=== PATIENT | female | born 1965 | race Caucasian/White ===

== ENCOUNTER → 2019-06-06 00:01 | Outpatient (RCR) | payer MEDICARE, MEDICAID, SELFPAY | LOC: WOUND 05-26 10:12 | PROVIDERS: Family Provider Internal Medicine; Visit Provider Surgery | DX: I96 Gangrene, not elsewhere classified (principal); L97.529 Non-pressure chronic ulcer of other part of left foot with unspecified severity; M79.605 Pain in left leg | CPT/HCPCS: 93922; G0463 ==

== ENCOUNTER 2019-06-08 09:24 | Outpatient (CLI) | payer MEDICARE, MEDICAID, SELFPAY | END 2019-06-08 09:25 | disposition home or self-care (01) | LOC: LAB 09:34 | PROVIDERS: Family Provider Internal Medicine; PCP Internal Medicine; Visit Provider Internal Medicine Nephrology | DX: N18.6 End stage renal disease (principal) ==

== ENCOUNTER 2019-06-25 15:37 | Inpatient (IN) | payer MEDICARE, MEDICAID, SELFPAY ==
[2019-06-25 15:38] VITALS: BP 121/79; PULSE 70; RESP 17; TEMP 36.7; O2SAT 100; BMI 34.9
--- NOTE | 2019-06-25 15:51 | ED_ITS ---
Entered by Monik El, acting as scribe for Tino Greenfield DO Jun 25, 2019 15:37 HPI - Nausea/Vomiting/Diarrhea General: Chief complaint: Nausea/Vomiting/Diarrhea Stated complaint: N/V Time Seen by Provider: 06/25/19 15:48 Source: patient Mode of arrival: wheelchair Limitations: no limitations History of Present Illness: HPI Narrative: 54 yo Female presents to ED with nausea and vomiting for 2 weeks. Pt states that she was on doxycycline and is now on Bactrim. Pt states that she is nauseated any time she smells or eats food. Pt states she has been vomiting but had no fever. Pt does peritoneal dialysis every night. MD elicited complaint: nausea and vomiting Onset (ago): week(s) (2) Description of vomiting: food contents Associated nausea: Yes Associated abdominal pain: No Location of pain: None Pain consistency: constant Exacerbating factors: eating Relieving factors: none Associated symtoms: Reports cough and nausea; Denies change in vision, chest pain, dysuria, fevers/chills, headache(s) or palpitations Review of Systems General: Reports: 10 or more systems reviewed and unremarkable except in HPI and below Const: Denies: fever, chills or body aches Eyes: Denies: change in vision, blurry vision or blind spots ENMT: Denies: throat pain, enlarged tonsils, painful swallowing, hoarseness or mouth pain Card: Denies: chest pain, palpitations, irregular heart rhythm or edema Resp: Reports: non-productive cough; Denies: shortness of breath or productive cough GI: Reports: nausea and vomiting; Denies: abdominal pain or diarrhea : Denies: flank pain, difficulty urinating, painful urination, urinary frequency or urinary urgency Musc: Denies: neck pain, back pain, extremity pain, extremity swelling or joint pain Skin/Breast: Denies: rash, itching or redness Neuro: Denies: headache, numbness in extremities or weakness in extremities Endo: Denies: excessive urination, excessive thirst or tired all the time Refugio/Lymph: Denies: easy bruising or easy bleeding PFSH ED PFSH: Statuses (acute, chronic, etc) shown below reflect problem list status as previously entered and may not be historically accurate Medical History Cholecystitis (Acute) Diabetes (Acute) Gastroparesis (Acute) History of left heart catheterization (Acute) HTN (hypertension) (Acute) Hyperlipidemia (Acute) Myocardial infarction (Acute) Peritoneal dialysis catheter in place (Acute) Renal failure (Acute) TIA (transient ischemic attack) (Acute) Surgical History History of appendectomy (Acute) History of heart artery stent (Acute) History of hysterectomy (Acute) Social History Smoking and tobacco status: never smoked Physical Exam Const: COMMON NORMALS: no apparent distress, average body habitus, oriented x3, no limitations, healthy appearing, alert and well nourished HENMT: COMMON NORMALS: normocephalic, head/scalp atraumatic, hearing grossly normal bilaterally, external ears normal, EAC's normal, TM's normal bilaterally, external nose normal, nasal mucous membranes and turbinates normal, moist oral mucous membranes, oropharynx normal, dentition normal and gingiva normal HEAD & SCALP: normocephalic and atraumatic NOSE: external nose normal and nasal mucous membranes and turbinates normal EXTERNAL EAR: Yes external ears normal EXTERNAL AUDITORY CANAL: EAC's normal TYMPANIC MEMBRANE: TM's normal bilaterally Eye: COMMON NORMALS: PERRL, EOMs intact bilaterally, conjunctivae normal, no scleral icterus, no papilledema, normal visual desir by confrontation and fundi normal bilaterally CONJUNCTIVA: Yes conjunctivae normal PUPIL: Yes PERRL DIRECT OPHTHALMOSCOPY: Yes no papilledema and Yes fundi normal bilaterally Neck/C-Spine: COMMON NORMALS: full ROM, no lymphadenopathy, supple, no meningeal signs, no JVD, thyroid normal and no carotid bruits THYROID: thyroid normal Chest: COMMONS NORMALS: inspection of chest normal and palpation of chest normal Resp: COMMON NORMALS: normal respiratory effort, no retractions, no use of accessory muscles, clear to auscultation bilaterally and percussion normal AUSCULTATION: clear to auscultation bilaterally PERCUSSION: percussion normal Cardio: COMMON NORMALS: no JVD, regular rate, regular rhythm, S1 normal heart sound, S2 normal heart sound, no gallops, no clicks, no murmurs, no rub and peripheral pulses 2+ throughout RATE: regular rate RHYTHM: regular rhythm HEART SOUNDS: S1 normal and S2 normal PERIPHERAL PULSES: pulses 2+ throughout GI: COMMON NORMALS: normal to inspection, nondistended, normoactive bowel sounds, soft to palpation, non-tender, no hepatosplenomegaly, no masses and no bruits PALPATION: Yes soft and Yes no hepatosplenomegaly : COMMON NORMALS: Yes no CVA tenderness and Yes external appearance normal BLADDER/KIDNEY EXAM: Yes no CVA tenderness Back/Pelvis: COMMON NORMALS: no CVA tenderness, thoracic and lumbar spine normal to inspection, no thoracic nor lumbar tenderness, thoraco-lumbar ROM normal and straight leg raise negative bilaterally Extremity: COMMON NORMALS: normal to inspection, full ROM, normal capillary refill, no joint enlargement, no clubbing, cyanosis or edema, no calf tenderness and no pedal edema RIGHT LOWER EXTREMITY: Yes knee joint (BKA) Neuro: COMMON NORMALS: oriented x3 SENSORIUM/ORIENTATION: Yes alert MENINGEAL SIGNS: Yes no meningeal signs Skin: COMMON NORMALS: no rashes or lesions noted, no wounds, skin turgor normal, no jaundice, no petechiae and no mottling GENERAL SKIN EXAM: no rash es or lesions noted and turgor normal Course Vital Signs: Vital signs: Vital Signs Temperature 98.1 F 06/25/19 15:38 Pulse Rate 70 06/25/19 15:38 Respiratory Rate 17 06/25/19 15:38 Blood Pressure 121/79 06/25/19 15:38 Pulse Oximetry 100 06/25/19 15:38 MDM - Nausea/Vomiting/Diarrhea Lab Data: Labs: Lab Results 06/25/19 06/25/19 06/25/19 Range/Units 16:10 16:10 16:10 WBC 8.4 (4.0-10.0) 10^3/ uL RBC 3.13 L (4.1-5.3) 10^6/u L Hgb 10.1 L (11.5-15.3) g/dL Hct 29.4 L (37.0-47.0) % MCV 93.9 (81-99) fL MCH 32.3 (28.0-34.0) pg MCHC 34.4 (30.0-36.0) g/dL RDW 13.2 (12.1-15.1) % Plt Count 254 (130-400) 10^3/c mm MPV 11.3 H (7.4-10.4) fL Neut % (Auto) 73.2 % Lymph % (Auto) 19.3 % [place] % (Auto) 5.7 % Eos % (Auto) 1.0 % Baso % (Auto) 0.4 % Neut # (Auto) 6.1 (1.8-7.7) 10^3/u L Lymph # (Auto) 1.6 (0.8-4.8) 10^3/u L Carolina # (Auto) 0.5 (0.2-0.9) 10^3/u L Eos # (Auto) 0.1 (0.0-0.8) 10^3/u L Baso # (Auto) 0.0 (0.0-0.1) 10^3/u L Nucleated RBC % (a uto) 0 % Nucleated RBCs # 0.0 /100WBC Specimen Type Sample Site ABG pH (7.35-7.45) ABG pCO2 (35-45) mmHg ABG pO2 (80.0-100.0) mmH g ABG HCO3 (22-26) mmol/L ABG Base Excess (-2.0-2.0) mmol/ L Jason Test Hematocrit (37-47) % O2 Delivery Device FiO2 % International Marketing Manager ID Sodium 130 L (136-145) mmol/L Potassium 4.0 (3.5-5.1) mmol/L Chloride 84 L (98-107) mmol/L Carbon Dioxide 29 (22-29) mmol/L Anion Gap 21.0 H (5-19) BUN 39 H (6-20) mg/dL Creatinine 8.4 H* (0.5-0.9) mg/dL GFR Calculation 4.9 L (90-130) mL/min Glucose 230 H (74-109) mg/dL Lactate 2.5 H (0.5-2.2) mmol/L Calcium 10.7 H (8.6-10.0) mg/Dl Total Bilirubin 0.3 (0.15-1.2) mg/dL AST 15 (0-32) U/L ALT 14 (0-33) U/L Alkaline Phosphata se 117 H (35-105) IU/L Troponin T Baselin e (0-10) ng/mL Troponin T 120 Min [place] (0-10) ng/mL Delta Troponin T (0-10) ABS# Total Protein 8.0 (6.6-8.7) g/dL Albumin 3.6 (3.5-5.2) g/dL Globulin 4.4 (1.3-4.6) g/dL Lipase 32 (13-60) U/L Serum Ketones (Negative) 06/25/19 06/25/19 06/25/19 Range/Units 16:10 16:10 16:55 WBC (4.0-10.0) 10^3/ uL RBC (4.1-5.3) 10^6/u L Hgb (11.5-15.3) g/dL Hct (37.0-47.0) % MCV (81-99) fL MCH (28.0-34.0) pg MCHC (30.0-36.0) g/dL RDW (12.1-15.1) % Plt Count (130-400) 10^3/c mm MPV (7.4-10.4) fL Neut % (Auto) % Lymph % (Auto) % Carolina % (Auto) % Eos % (Auto) % Baso % (Auto) % Neut # (Auto) (1.8-7.7) 10^3/u L Lymph # (Auto) (0.8-4.8) 10^3/u L Carolina # (Auto) (0.2-0.9) 10^3/u L Eos # (Auto) (0.0-0.8) 10^3/u L Baso # (Auto) (0.0-0.1) 10^3/u L Nucleated RBC % (a uto) % Nucleated RBCs # /100WBC Specimen Type Arterial Sample Site Radial, right ABG pH 7.47 H (7.35-7.45) ABG pCO2 43.3 (35-45) mmHg ABG pO2 62.9 L (80.0-100.0) mmH g ABG HCO3 31.5 H (22-26) mmol/L ABG Base Excess 6.9 H (-2.0-2.0) mmol/ L Jason Test Pos Hematocrit 48.2 H (37-47) % O2 Delivery Device Room air FiO2 21.0 % International Marketing Manager ID glc Sodium (136-145) mmol/L Potassium (3.5-5.1) mmol/L Chloride (98-107) mmol/L Carbon Dioxide (22-29) mmol/L Anion Gap (5-19) BUN (6-20) mg/dL Creatinine (0.5-0.9) mg/dL GFR Calculation (90-130) mL/min Glucose (74-109) mg/dL Lactate (0.5-2.2) mmol/L Calcium (8.6-10.0) mg/Dl Total Bilirubin (0.15-1.2) mg/dL AST (0-32) U/L ALT (0-33) U/L Alkaline Phosphata se (35-105) IU/L Troponin T Baselin e 170 H* (0-10) ng/mL Troponin T 120 Min [place] (0-10) ng/mL Delta Troponin T (0-10) ABS# Total Protein (6.6-8.7) g/dL Albumin (3.5-5.2) g/dL Globulin (1.3-4.6) g/dL Lipase (13-60) U/L Serum Ketones Negative (Negative) 06/25/19 Range/Units 18:00 WBC (4.0-10.0) 10^3/ uL RBC (4.1-5.3) 10^6/u L Hgb (11.5-15.3) g/dL Hct (37.0-47.0) % MCV (81-99) fL MCH (28.0-34.0) pg MCHC (30.0-36.0) g/dL RDW (12.1-15.1) % Plt Count (130-400) 10^3/c mm MPV (7.4-10.4) fL Neut % (Auto) % Lymph % (Auto) % [place] % (Auto) % Eos % (Auto) % Baso % (Auto) % Neut # (Auto) (1.8-7.7) 10^3/u L Lymph # (Auto) (0.8-4.8) 10^3/u L [place] # (Auto) (0.2-0.9) 10^3/u L Eos # (Auto) (0.0-0.8) 10^3/u L Baso # (Auto) (0.0-0.1) 10^3/u L Nucleated RBC % (a uto) % Nucleated RBCs # /100WBC Specimen Type Sample Site ABG pH (7.35-7.45) ABG pCO2 (35-45) mmHg ABG pO2 (80.0-100.0) mmH g ABG HCO3 (22-26) mmol/L ABG Base Excess (-2.0-2.0) mmol/ L Jason Test Hematocrit (37-47) % O2 Delivery Device FiO2 % International Marketing Manager ID Sodium (136-145) mmol/L Potassium (3.5-5.1) mmol/L Chloride (98-107) mmol/L Carbon Dioxide (22-29) mmol/L Anion Gap (5-19) BUN (6-20) mg/dL Creatinine (0.5-0.9) mg/dL GFR Calculation (90-130) mL/min Glucose (74-109) mg/dL Lactate (0.5-2.2) mmol/L Calcium (8.6-10.0) mg/Dl Total Bilirubin (0.15-1.2) mg/dL AST (0-32) U/L ALT (0-33) U/L Alkaline Phosphata se (35-105) IU/L Troponin T Baselin e (0-10) ng/mL Troponin T 120 Min [place] 181.10 H (0-10) ng/mL Delta Troponin T 11.10 H* (0-10) ABS# Total Protein (6.6-8.7) g/dL Albumin (3.5-5.2) g/dL Globulin (1.3-4.6) g/dL Lipase (13-60) U/L Serum Ketones (Negative) Imaging Data^: CT Abd/Pel: Radiologist's impression: [address] [address] [address] Scan Report Signed Patient: Rizwana Herzog #: [id number] : 1965Acct#:[id number] Age/Sex: 54 / FADM Date: 06/25/19 Loc: ERRoom/Bed: Attending Dr: Ordering Provider/Ordering MD: Tino Greenfield DO Date of Service: 06/25/19 Procedure(s): CT abdomen pelvis wo con [id number] Accession Number(s): [id number] Report Number: [id number] PROCEDURE INFORMATION: Exam: CT Abdomen And Pelvis Without Contrast Exam date and time: 06/25/2019 4:01 PM Age: 54 years old Clinical indication: Abdominal pain; Acute; Prior surgery; Surgery date: 6+ months; Additional info: N/v; Abd pain TECHNIQUE: Imaging protocol: Computed tomography of the abdomen and pelvis without contrast. Total DLP: 1765.68 mGy-cm Radiation optimization: All CT scans at this facility use at least one of these dose optimization techniques: automated exposure control; mA and/or kV adjustment per patient size (includes targeted exams where dose is matched to clinical indication); or iterative reconstruction. COMPARISON: CT abdomen pelvis wo con [id number] 04/21/2018 4:28 PM FINDINGS: Tubes, catheters and devices: Right lower quadrant peritoneal dialysis catheter in place. Liver: Normal. No mass. Gallbladder and bile ducts: Prior cholecystectomy. Pancreas: Normal. No ductal dilation. Spleen: Normal. No splenomegaly. Adrenals: Normal. No mass. Kidneys and ureters: Normal. No hydronephrosis. Stomach and bowel: Unremarkable. No obstruction. No mucosal thickening. Appendix: No evidence of appendicitis. Intraperitoneal space: Moderate amount ascites or dialysis fluid in the abdomen and pelvis. Vasculature: Unremarkable. No abdominal aortic aneurysm. Lymph nodes: Unremarkable. No enlarged lymph nodes. Bladder: Small amount of air in collapsed urinary bladder which is probably iatrogenic from recent instrumentation and clinical correlation is requested. Reproductive: Prior hysterectomy. Bones/joints: Unremarkable. No acute fracture. Soft tissues: Enlarging fat and fluid containing umbilical hernia now measuring [address]/CT abdomen pelvis con [id number] IMPRESSION: 1) right lower quadrant peritoneal dialysis catheter in place. Moderate amount of ascites or dialysis fluid in the abdomen and pelvis. 2) enlarging 4 cm fat and fluid containing umbilical hernia. 3) prior cholecystectomy and hysterectomy. Radiation Dose CTDIVOL = (mGy): DLP = 1765.68 (mGy-cm) Dictated By:Zack Leary MD Signed By:Zack Leary MDSigned Date/Time:06/25/191650 DD/ 49 CXR: Radiologist's impression: [facility] [address] [facility] [address] XRay Report Signed Patient: Rizwana Herzog #: [id number] : 1965Acct#:[id number] Age/Sex: 54 / FADM Date: 06/25/19 Loc: ERRoom/Bed: Attending Dr: Ordering Provider/Ordering MD: Tino Greenfield DO Date of Service: 06/25/19 Procedure(s): XR chest 1V portable [id number] Accession Number(s): [id number] Report Number: [id number] PROCEDURE INFORMATION: Exam: XR Chest, 1 View Exam date and time: 06/25/2019 4:01 PM Age: 54 years old Clinical indication: Other: N/v/d; Prior surgery; Surgery date: 6+ months; Surgery type: Stent x 1; Additional info: Dyspnea TECHNIQUE: Imaging protocol: XR of the chest Views: 1 view. COMPARISON: CR Chest 1 view [id number] 11/10/2018 9:56 AM FINDINGS: Lungs: Right mid lung region plate of atelectasis. Pleural space: Unremarkable. No pleural effusion. No pneumothorax. Heart/Mediastinum: Mild cardiomegaly. Bones/joints: Unremarkable. XR/XR chest 1V portable [id number] IMPRESSION: Minor right lung platelike atelectasis. Mild cardiomegaly. Dictated By:Zack Leary MD Signed By:Zack Leary MDSigned Date/Time:06/25/191652 DD/ 51 Discharge Plan Discharge Patient Disposition: Admitted As Inpatient Clinical Impression: Peritoneal dialysis catheter in place, Non-ST elevation CT (NSTEMI) Nausea & vomiting Qualifiers: Vomiting type: unspecified Vomiting Intractability: intractable Qualified Code(s): R11.2 - Nausea with vomiting, unspecified Chronic renal failure Qualifiers: Chronic kidney disease stage: unspecified stage Qualified Code(s): N18.9 - Chronic kidney disease, unspecified Condition: Stable Referrals: Yovany Leonardo MD [Primary Care Provider] - Coding Level of Care Code ED Director Of Channel Marketing for Chg Fwd Exam Problem Focused The documentation recorded by the Nikko bernal Carmen, accurately reflects the service I personally performed and the decisions made by me, Tino Greenfield, DO Jun 25, 2019 15:37
--- NOTE | 2019-06-25 15:58 | CTR_ITS ---
PROCEDURE INFORMATION: Exam: CT Abdomen And Pelvis Without Contrast Exam date and time: 06/25/2019 4:01 PM Age: 54 years old Clinical indication: Abdominal pain; Acute; Prior surgery; Surgery date: 6+ months; Additional info: N/v; Abd pain TECHNIQUE: Imaging protocol: Computed tomography of the abdomen and pelvis without contrast. Total DLP: 1765.68 mGy-cm Radiation optimization: All CT scans at this facility use at least one of these dose optimization techniques: automated exposure control; mA and/or kV adjustment per patient size (includes targeted exams where dose is matched to clinical indication); or iterative reconstruction. COMPARISON: CT abdomen pelvis con [id number] 04/21/2018 4:28 PM FINDINGS: Tubes, catheters and devices: Right lower quadrant peritoneal dialysis catheter in place. Liver: Normal. No mass. Gallbladder and bile ducts: Prior cholecystectomy. Pancreas: Normal. No ductal dilation. Spleen: Normal. No splenomegaly. Adrenals: Normal. No mass. Kidneys and ureters: Normal. No hydronephrosis. Stomach and bowel: Unremarkable. No obstruction. No mucosal thickening. Appendix: No evidence of appendicitis. Intraperitoneal space: Moderate amount ascites or dialysis fluid in the abdomen and pelvis. Vasculature: Unremarkable. No abdominal aortic aneurysm. Lymph nodes: Unremarkable. No enlarged lymph nodes. Bladder: Small amount of air in collapsed urinary bladder which is probably iatrogenic from recent instrumentation and clinical correlation is requested. Reproductive: Prior hysterectomy. Bones/joints: Unremarkable. No acute fracture. Soft tissues: Enlarging fat and fluid containing umbilical hernia now measuring [address]/CT abdomen pelvis con [id number] IMPRESSION: 1) right lower quadrant peritoneal dialysis catheter in place. Moderate amount of ascites or dialysis fluid in the abdomen and pelvis. 2) enlarging 4 cm fat and fluid containing umbilical hernia. 3) prior cholecystectomy and hysterectomy. Radiation Dose CTDIVOL = (mGy): DLP = 1765.68 (mGy-cm)
--- NOTE | 2019-06-25 15:58 | XRR_ITS ---
PROCEDURE INFORMATION: Exam: XR Chest, 1 View Exam date and time: 06/25/2019 4:01 PM Age: 54 years old Clinical indication: Other: N/v/d; Prior surgery; Surgery date: 6+ months; Surgery type: Stent x 1; Additional info: Dyspnea TECHNIQUE: Imaging protocol: XR of the chest Views: 1 view. COMPARISON: CR Chest 1 view [id number] 11/10/2018 9:56 AM FINDINGS: Lungs: Right mid lung region plate of atelectasis. Pleural space: Unremarkable. No pleural effusion. No pneumothorax. Heart/Mediastinum: Mild cardiomegaly. Bones/joints: Unremarkable. XR/XR chest 1V portable [id number] IMPRESSION: Minor right lung platelike atelectasis. Mild cardiomegaly.
--- NOTE | 2019-06-25 16:00 | ECG_ITS ---
Measurements Intervals [place] Rate: 67 P: -85 MI: 128 QRS: -36 QRSD: 80 T: -11 QT: 367 QTc: 388 JUNCTIONAL RHYTHM POSSIBLE ANTERIOR MYOCARDIAL INFARCTION , OF INDETERMINATE AGE [30 ms Q WAVE IN V3/V4, OR R < 0.2 mV IN V4] INFERIOR MYOCARDIAL INFARCTION , OF INDETERMINATE AGE [40+ ms Q WAVE AND/OR ST/T ABNORMALITY IN II/aVF] Compared to ECG 11/07/2018 20:12:47 Junctional rhythm now present Sinus rhythm no longer present Left-axis deviation no longer present Myocardial infarct finding still present Electronically Signed On 06-26-2019 17:18:59 HAY FARMER by Manny Tan M.D. [email or web address]
[2019-06-25 16:26] LABS: Basophils % 0.4 %; Eosinophils # 0.1 10^3/uL (0.0-0.8); Hematocrit 29.4 % (37.0-47.0); Hemoglobin 10.1 g/dL (11.5-15.3); Lymphocytes # 1.6 10^3/uL (0.8-4.8); Lymphocytes % 19.3 %; Mean Corpuscular HGB Conc 34.4 g/dL (30.0-36.0); Mean Corpuscular Hemoglobin 32.3 pg (28.0-34.0); Mean Corpuscular Volume 93.9 fL (81-99); Mean Platelet Volume 11.3 fL (7.4-10.4); Monocytes # 0.5 10^3/uL (0.2-0.9); Monocytes % 5.7 %; Neutrophils # 6.1 10^3/uL (1.8-7.7); Neutrophils % 73.2 %; Nucleated Red Blood Cells % 0 %; Platelet Count 254 10^3/cmm (130-400); Red Blood Count 3.13 10^6/uL (4.1-5.3); Red Cell Distribution Width 13.2 % (12.1-15.1); White Blood Count 8.4 10^3/uL (4.0-10.0)
[2019-06-25 16:36] LABS: Ketone (Acetest) Serum Negative (Negative); Lactate (Lactic Acid level) 2.5 mmol/L (0.5-2.2)
[2019-06-25] MEDS: ondansetron 2 mg/ML SDV 2 mL 4 MG IVP ×2 (16:45→23:20)
[2019-06-25 16:51] LABS: Troponin(5th) Baseline 170 ng/mL (0-10)
[2019-06-25 16:58] LABS: Alanine Aminotransferase 14 U/L (0-33); Albumin Level 3.6 g/dL (3.5-5.2); Alkaline Phosphatase 117 IU/L (35-105); Aspartate Amino Transferase 15 U/L (0-32); Blood Urea Nitrogen 39 mg/dL (6-20); Calcium 10.7 mg/Dl (8.6-10.0); Carbon Dioxide 29 mmol/L (22-29); Chloride 84 mmol/L (98-107); Globulin 4.4 g/dL (1.3-4.6); Glomerular Filtration Rate 4.9 mL/min (90-130); Glucose 230 mg/dL (74-109); Lipase 32 U/L (13-60); Sodium 130 mmol/L (136-145); Total Bilirubin 0.3 mg/dL (0.15-1.2)
[2019-06-25] MEDS: sodium chloride 0.9% 1,000 ML 999 ML IV (16:58)
[2019-06-25 17:05] LABS: ABG PCO2 43.3 mmHg (35-45); ABG PH Result 7.47 (7.35-7.45); Arterial Blood Gas Hematocrit 48.2 % (37-47); Base Excess ABG 6.9 mmol/L (-2.0-2.0); Blood Gas Allen Test Pos; Blood Gas Operator Identificat glc; Blood Gas Sample Site Radial, right; Blood Gas Sample Type Arterial; HCO3 ABG 31.5 mmol/L (22-26); Oxygen Device ROOM AIR; PO2 ABG 62.9 mmHg (80.0-100.0)
--- NOTE | 2019-06-25 18:00 | ECG_ITS ---
Measurements Intervals [place] Rate: 70 P: -46 KS: 181 QRS: -43 QRSD: 81 T: -46 QT: 365 QTc: 396 SINUS RHYTHM LEFT AXIS DEVIATION [QRS AXIS < -30] ANTERIOR MYOCARDIAL INFARCTION , OF INDETERMINATE AGE [40+ ms Q WAVE AND/OR ST/T ABNORMALITY IN V3/V4] INFERIOR MYOCARDIAL INFARCTION , OF INDETERMINATE AGE [40+ ms Q WAVE AND/OR ST/T ABNORMALITY IN II/aVF] Compared to ECG 11/07/2018 20:12:47 No significant changes Electronically Signed On 06-26-2019 17:26:36 SHOVEL LOGGER by Manny Tan M.D. [email or web address]
--- NOTE | 2019-06-25 18:30 | PC.NURSE ---
2 hr Trop = 181.1, delta = 11.1
--- NOTE | 2019-06-25 20:30 | P.HP_ITS ---
Providers/Chief Complaint Admitting Physician: Tierra Jung MD Primary Care Provider: Yovany Leonardo MD Chief Complaint: N/V History of Present Illness Rizwana Herzog is a 54 year old female with PMHx of ESRD on PD, CAD, HTN, IDDM type II, Hypothyroidism, GERD, Hyperlipidemia, PVD s/p R BKA; presents with c/o nausea, NBNB emesis x 2 weeks and vague periumbilical abdominal discomfort that seems to have worsened over the past day or so. She has chronic issues with nausea and vomiting since starting PD but states this particular episode seemed to worsen more than usual. She is known to me from previous admission in 2019 during which time she was found to have RLE limb ischemia and was transferred to [place] where she follows up with vascular surgery. She is currently wearing a CAM boot on her LLE due to what sounds like venous stasis ulcers, and has been wearing this for about 3 weeks. Plan is for conservative management and then peripheral angiogram to further assess the vasculature. She denies any fever/chills, pain or drainage from site of PD catheter, chest pain, increased SOB. She has had decreased oral intake due to her abdominal symptoms but no notable weight loss. Workup in ED indicates normal WBC, mild anemia with Hg of 10.1, sodium of 130, BUN of 39, Cr-8.4, lactate of 2.5, delta of 11 from first 2 gen 5 troponins. Vital signs are stable and she is on RA. CXR shows mild cardiomegaly with no acute findings, CT A/P is reported as moderate ascites or dialysis fluid in abdomen and pelvis. Due to troponin elevation and given her underlying history, she is being admitted for further management. She received 1 L NS bolus. Review of Systems Const: Reports: change in appetite (decreased appetite) and fatigue; Denies: fever or chills Eyes: Denies: change in vision ENMT: Reports: dry mouth Card: Denies: chest pain, swelling of feet/ankles or lightheadedness Resp: Denies: shortness of breath GI: Reports: abdominal pain, nausea and vomiting (NBNB); Denies: vomiting blood, diarrhea or blood in stool : Denies: difficulty urinating, painful urination or urinary frequency Musc: Denies: back pain Skin/Breast: Denies: rash Neuro: Denies: numbness in extremities or weakness in extremities Psych: Denies: anxiety Medications/Allergies Home Medications Medication Instructions Recorded Confirmed Last Taken Type aspirin 81 mg PO DAILY 06/25/19 06/25/19 06/24/19 History atorvastatin 40 mg PO DAILY 06/25/19 06/25/19 06/24/19 History bumetanide 1 mg PO BID 06/25/19 06/25/19 06/24/19 History clopidogrel 75 mg PO DAILY 06/25/19 06/25/19 06/24/19 History insulin glargine [Lantus Solostar 30 unit SUBCUT BID 06/25/19 06/25/19 06/24/19 History U-100 Insulin] isosorbide mononitrate 30 mg PO DAILY 06/25/19 06/25/19 06/24/19 History levothyroxine 112 mcg PO DAILY 06/25/19 06/25/19 06/24/19 History metoprolol succinate 50 mg PO DAILY 06/25/19 06/25/19 06/24/19 History pantoprazole 40 mg PO DAILY 06/25/19 06/25/19 06/24/19 History Allergies Allergy/AdvReac Type Severity Reaction Status Date / Time metformin [From Glucophage] Allergy Unknown Verified 06/25/19 15:42 venlafaxine [From Effexor] Allergy ADR-Shakine Verified 06/25/19 15:42 ss PFSH Acute PFSH: Statuses (acute, chronic, etc) shown below reflect problem list status as previously entered and may not be historically accurate Medical History (Updated 06/26/19 @ 01:15 by Tierra Jung MD) Anxiety (Acute) Cholecystitis (Acute) Chronic diastolic CHF (congestive heart failure) (Acute) Depression (Acute) Diabetes (Acute) Insulin-dependent Gastroparesis (Acute) GERD (gastroesophageal reflux disease) (Acute) History of left heart catheterization (Acute) HTN (hypertension) (Acute) Hyperlipidemia (Acute) Hypothyroidism (Acute) Myocardial infarction (Acute) Peripheral vascular disease (Acute) Peritoneal dialysis catheter in place (Acute) Renal failure (Acute) TIA (transient ischemic attack) (Acute) Surgical History (Updated 06/26/19 @ 01:14 by Tierra uJng MD) History of appendectomy (Acute) History of heart artery stent (Acute) History of hysterectomy (Acute) History of right below knee amputation (Acute) Social History (Updated 06/26/19 @ 01:16 by Tierra Jung MD) Smoking and tobacco status: never smoked Alcohol intake: never Substance/Drug Use: never Household members: spouse and family Vitals/I&O/Wt Last Vital Signs Temp 98.1 F 06/25/19 15:38 Pulse 70 06/25/19 15:38 Resp 17 06/25/19 15:38 BP 121/79 06/25/19 15:38 Pulse Ox 100 06/25/19 15:38 Weight last 48 hrs Weight 95.254 kg Physical Exam Const: COMMON NORMALS: no apparent distress and oriented x3 GENERAL APPEARANCE: cooperative and comfortable NUTRITIONAL APPEARANCE: obese morbidly obese ORIENTATION/CONSCIOUSNESS: Yes awake HENMT: COMMON NORMALS: normocephalic, head/scalp atraumatic, hearing grossly normal bilaterally and moist oral mucous membranes HEAD & SCALP: normocephalic and atraumatic Eye: COMMON NORMALS: PERRL, EOMs intact bilaterally and conjunctivae normal CONJUNCTIVA: Yes conjunctivae normal PUPIL: Yes PERRL Neck/C-Spine: COMMON NORMALS: full ROM GENERAL: Yes normal visual inspection and Yes trachea midline Resp: COMMON NORMALS: normal respiratory effort, no retractions, no use of accessory muscles and clear to auscultation bilaterally EFFORT & INSPECTION: Yes able to speak in complete sentences, Yes symmetric chest movement and No tachypneic AUSCULTATION: clear to auscultation bilaterally Cardio: COMMON NORMALS: regular rate, regular rhythm, S1 normal heart sound, S2 normal heart sound and no murmurs RATE: regular rate RHYTHM: regular rhythm HEART SOUNDS: S1 normal and S2 normal GI: COMMON NORMALS: normal to inspection, nondistended, normoactive bowel sounds, soft to palpation and non-tender PALPATION: Yes soft, No tender, No guarding and No rigid OTHER: -PD catheter in place, no noted erythema, no apparent discharge or drainage Extremity: COMMON NORMALS: normal to inspection, full ROM and no clubbing, cyanosis or edema; negative for no pedal edema OTHER: -CAM boot on LLE; s/p R BKA Neuro: COMMON NORMALS: oriented x3, moves all extremities, no focal motor deficits and no sensory deficits noted Psych: COMMON NORMALS: mental status grossly normal, thought process normal, cooperative and speech normal SPEECH: Yes normal speech MOOD & AFFECT: Yes flat affect THOUGHT PROCESS: normal thought process Skin: COMMON NORMALS: no rashes or lesions noted, no jaundice, no petechiae and no mottling GENERAL SKIN EXAM: no rashes or lesions noted Data : 06/25/19 16:10 06/25/19 16:10 Micro: Microbiology 06/25/19 16:49 Blood Culture - Preliminary Blood SPECIMEN COLLECTED 06/25/19 16:10 Blood Culture - Preliminary Blood SPECIMEN COLLECTED A&P Assessment and plan (1) Nausea & vomiting: -has had chronic issues with nausea, vomiting for quite some time, could be secondary to gastroparesis, GERD, gastritis. -no evidence of peritonitis clinically or on imaging -pain control, antiemetics as needed Status: Acute Qualifiers: Vomiting Intractability: intractable Vomiting type: unspecified Qualified Code(s): R11.2 - Nausea with vomiting, unspecified Code(s): R11.2 - Nausea with vomiting, unspecified (2) Peripheral vascular disease: Status: Acute Code(s): I73.9 - Peripheral vascular disease, unspecified (3) Non-ST elevation NM (NSTEMI): -noted troponin elevation which has been chronic as well -given sensitivity of gen 5 troponin, could be secondary to abdominal symptoms; no evidence of cardiac symptoms; low suspicion for cardiac etiology -monitor vital signs -telemetry monitoring -Echo (09/2018): EF=61% -has had negative stress testing in 2016 Status: Acute Code(s): I21.4 - Non-ST elevation (NSTEMI) myocardial infarction (4) Peritoneal dialysis catheter in place: -has ESRD on PD -PD today, Nephrology consult placed; case discussed briefly with Dr. Mcfarland Status: Acute Code(s): Z99.2 - Dependence on renal dialysis Additional A&P Information -Morbid obesity: BMI-35 kg/m2 -Depression/Anxiety -HTN -Hyperlipidemia -Hypothyroidism -IDDM type II; Accuchecks, ISS -Peripheral vascular disease s/p R BKA, venous stasis ulcers on LLE (present on admission) -resume home meds -GI ppx with PPI -DVT ppx with heparin -Dispo: home -Code status: FULL code Attestations Medical Necessity Statement*: Rizwana Herzog's hospital stay will be less than 2 midnights for management of nausea/vomiting, elevated troponin requiring further telemetry monitoring, trending of troponins. Time Spent in Patient Care: Greater than 35 minutes (>than 50% of time spent in counselling and/or direct pt care on unit) . Coding Level of Care Code Acute Director [facility]hs for Chg Fwd Diagnoses Nausea & vomiting R11.2 Vomiting Intractability: intractable Vomiting type: unspecified Peripheral vascular disease I73.9 Non-ST elevation NM (NSTEMI) I21.4 Peritoneal dialysis catheter in place Z99.2
[2019-06-25 21:00] VITALS: PULSE 84; O2SAT 97
[2019-06-25 21:27] VITALS: BP 106/62; PULSE 74; RESP 19; O2SAT 94
--- NOTE | 2019-06-25 22:00 | ECG_ITS ---
Measurements Intervals [place] Rate: 69 P: -81 WI: 130 QRS: -34 QRSD: 84 T: -13 QT: 378 QTc: 405 JUNCTIONAL RHYTHM MARKED LEFT AXIS DEVIATION [QRS AXIS < -30] POSSIBLE ANTERIOR MYOCARDIAL INFARCTION [30 ms Q WAVE IN V3/V4, OR R < 0.2 mV IN V4], OF INDETERMINATE AGE INFERIOR MYOCARDIAL INFARCTION [40+ ms Q WAVE AND/OR ST/T ABNORMALITY IN II/aV II/aVF], OF INDETERMINATE AGE Compared to ECG 11/07/2018 20:12:47 Junctional rhythm now present Sinus rhythm no longer present Myocardial infarct finding still present Electronically Signed On 06-26-2019 17:27:23 BIBLICAL STUDIES PROFESSOR by Manny Tan M.D. [email or web address]
[2019-06-25 22:30] VITALS: BP 123/73; PULSE 71; RESP 18; O2SAT 92
[2019-06-25] MEDS: heparin 5,000 unit/mL INJ 1 mL 5000 UNIT SUBCUT (22:36)
[2019-06-25 22:41] LABS: Troponin 5 6HR 161.8 ng/L (0-10)
[2019-06-25 22:42] LABS: Troponin 5 6HR Delta -8.2 ng/L (0-12)
[2019-06-25 22:44] LABS: Glucose Point of Care 153 mg/dL (70-110)
--- NOTE | 2019-06-25 23:32 | PC.NURSE ---
Dr. Mcfarland called regarding patient's PD. Stating he would be putting in orders for PD and received an order for Gram stain and culture of peritoneal fluid. Read back verbal order.
[2019-06-26] VITALS (8 sets, daily range): BP systolic 92–119; BP diastolic 59–76; PULSE 67–77; RESP 14–18; TEMP 36.7–37.1; O2SAT 90–96
--- NOTE | 2019-06-26 00:21 | PC.NURSE ---
Orders from Dr. Mcfarland to do [facility] exchange tonight. Read back verbal order.
[2019-06-26] MEDS: Dianeal low Ca w/2.5% dex 2,000 mL Bag 2000 ML INTRAPERIT (01:07)
--- NOTE | 2019-06-26 04:27 | PC.NURSE ---
PT HAS A STASIS WOUND TO THE LEFT OUTER FOOT. THERE ARE SPOTS ON THE TOES AND ANOTHER SPOT UNDER THE BIG TOE ON THE PAD. THERE IS SOME ESCHAR ON THE TOES. A WET TO DRY WAS PUT ON THE OUTER FOOT AND WRAPPED IN KERLIX.
[2019-06-26 05:10] LABS: Basophils % 0.3 %; Eosinophils # 0.1 10^3/uL (0.0-0.8); Eosinophils % 1.3 %; Hematocrit 27.3 % (37.0-47.0); Hemoglobin 9.1 g/dL (11.5-15.3); Lymphocytes # 1.8 10^3/uL (0.8-4.8); Mean Corpuscular HGB Conc 33.3 g/dL (30.0-36.0); Mean Corpuscular Hemoglobin 32.2 pg (28.0-34.0); Mean Corpuscular Volume 96.5 fL (81-99); Mean Platelet Volume 11.6 fL (7.4-10.4); Monocytes # 0.5 10^3/uL (0.2-0.9); Monocytes % 6.5 %; Neutrophils % 67.6 %; Nucleated Red Blood Cells % 0 %; Platelet Count 237 10^3/cmm (130-400); Red Blood Count 2.83 10^6/uL (4.1-5.3); Red Cell Distribution Width 13.2 % (12.1-15.1); White Blood Count 7.4 10^3/uL (4.0-10.0)
[2019-06-26] MEDS: heparin 5,000 unit/mL INJ 1 mL 5000 UNIT SUBCUT ×3 (05:31→21:19)
[2019-06-26 05:40] LABS: Anion Gap 21.7 (5-19); Blood Urea Nitrogen 37 mg/dL (6-20); Carbon Dioxide 27 mmol/L (22-29); Chloride 88 mmol/L (98-107); Glomerular Filtration Rate 4.9 mL/min (90-130); Glucose 208 mg/dL (74-109); Potassium 3.7 mmol/L (3.5-5.1); Sodium 133 mmol/L (136-145)
--- NOTE | 2019-06-26 06:46 | P.PN_ITS ---
Subjective Subjective: Interval history: weak, leg pain. dec n/v/abd pain. is sad and depressed. Medications: Reviewed: Yes Medication Review Details: Current Medications Acetaminophen (Tylenol) 650 mg PO Q6H PRN PRN Reason: Mild/Mod Pain Or Temp >/= 101 Aspirin (Aspirin Chewable) 81 mg PO DAILY [facility] Atorvastatin Calcium (Lipitor) 40 mg PO DAILY [facility] Bumetanide (Bumex) 1 mg PO BID [facility] Clopidogrel Bisulfate (Plavix) 75 mg PO DAILY [facility] Dextrose (D50w) 25 ml IVP ONCE PRN; Protocol PRN Reason: hypoglycemia protocol Dextrose (D50w) 50 ml IVP PRN PRN; Protocol PRN Reason: hypoglycemia protocol Glucagon (Glucagen) 1 mg IM ONCE PRN; Protocol PRN Reason: Adult Acute Hypoglycemia Prot. Heparin Sodium (Beef Lung) (Heparin) 5,000 unit SUBCUT Q8H [facility] Last Admin: 06/26/19 05:31 Dose: 5,000 unit Documented by: Dextrose (D5w) 500 mls @ 100 mls/hr IV ONCE PRN; Protocol PRN Reason: Adult Acute Hypoglycemia Prot Insulin Aspart (Novolog) 0 unit SUBCUT WM&BEDTIME [facility]; Protocol Last Admin: 06/25/19 22:45 Dose: 4 unit Documented by: Isosorbide Mononitrate (Imdur) 30 mg PO DAILY [facility] Levothyroxine Sodium (Synthroid) 112 mcg PO DAILY [facility] Metoprolol Succinate (Toprol Xl) 50 mg PO DAILY [facility] Morphine Sulfate (Morphine) 4 mg IVP Q4H PRN PRN Reason: SEVERE PAIN Ondansetron HCl (Zofran) 4 mg IVP Q6H PRN PRN Reason: NAUSEA AND VOMITING Last Admin: 06/25/19 23:20 Dose: 4 mg Documented by: Pantoprazole Sodium (Protonix) 40 mg PO DAILY [facility] Peritoneal Dialysis Solution (Dianeal Low Ca W/2.5% Dex) 2,000 ml INTRAPERIT 5XD [facility] Last Admin: 06/26/19 01:07 Dose: 2,000 ml Documented by: Vitals/I&O/Wt Last Vital Signs Temp 98.8 F 06/26/19 04:00 Pulse 77 06/26/19 04:00 Resp 18 06/26/19 04:00 BP 92/59 06/26/19 04:00 Pulse Ox 92 06/26/19 04:00 06/25/19 06/25/19 06/26/19 14:59 22:59 06:59 Intake Total 0 / 0 350 / 350 Balance 0 / 0 350 / 350 Weight last 48 hrs Weight 97.296 kg Weight 95.254 kg Physical Exam Narrative: EXAM NARRATIVE: comfortable in bed NARD vs noted heent- nc/at, eomi, anicteric neck- supple, no jvp lungs are clear heart reg abd soft, nt, nd, + tenkoff catheter ext rt bka, left leg bandaged, no edema neuro- a,a, o x3 Data : 06/26/19 03:15 06/26/19 03:15 Micro: Microbiology 06/25/19 16:49 Blood Culture - Preliminary Blood SPECIMEN COLLECTED 06/25/19 16:10 Blood Culture - Preliminary Blood SPECIMEN COLLECTED A&P Additional A&P Information 1. ESRD- cont CAPD- 4 exchanges a day of low glucose, 2 l fills 2. + trop per pmd 3. anemia- check iron studies 4. hypercalcemia- improving 5. n/v- likely DM gastroparesis, and poor compliance w/ dialysis 6. DM control 7. PVD- s/p Rt BKA. LLE will need an angiogram Attestations Medical Necessity Statement*: per hospitalist. issues as above Time Spent in Patient Care: 16 - 35 minutes (>than 50% of time spent in counselling and/or direct pt care on unit) . Coding Level of Care Code Acute Back Panel Padder for Maris Braden
[2019-06-26 06:59] LABS: Glucose Point of Care 206 mg/dL (70-110)
[2019-06-26 08:07] LABS: Iron 68 ug/dL (37-145); Percent Saturation 37.5 % (20-50); Total Iron Binding Capacity 181 mg/dL; Unsaturated Iron Binding 113 ug/dL (112-347)
[2019-06-26 08:37] LABS: Ferritin 1085 ng/mL (15-150)
--- NOTE | 2019-06-26 08:43 | MR_ITS ---
WS: [id number] MRI/MRCP OF THE ABDOMEN WITHOUT GADOLINIUM ENHANCEMENT TECHNIQUE: Thin and thick slab MRCP, Axial T2, Coronal MRCP, Axial Dual Echo, and Axial 2-D Fiesta imaging was obtained. Coronal 2-D Fiesta imaging. CLINICAL INFORMATION: post cholecystectomy COMPARISON: CT FINDINGS: Images moderately degraded by patient motion and breathing artifact. Cholecystectomy. Perisplenic and perihepatic ascites. Normal portal vein and splenic vein. Small esop hageal hiatal hernia. Intrahepatic bile ducts are normal in appearance. Normal common bile duct. Fatt y atrophy of the pancreas. No evidence of choledocholithiasis. Aortic calcification. Mesenteric calcification. Renal cortical atrophy. Normal caliber upper abdomina l aorta. Perinephric edema can be seen with renal insufficiency. Right basilar atelectasis. MR/MR MRCP 23589 Impression: 1. Moderate perihepatic and perisplenic ascites. 2. Prior cholecystectomy. Normal common bile duct. No evidence of choledocholi thiasis. 3. Fatty atrophy of the pancreas. 4. Renal cortical atrophy with perinephric edema can be seen with renal insuff iciency. 5. Small esophageal hiatal hernia. 6. No intrahepatic biliary ductal dilatation. Intrahepatic bile ducts appear n ormal.
[2019-06-26] MEDS: ondansetron 2 mg/ML SDV 2 mL 4 MG IVP (08:47)
[2019-06-26] MEDS: clopidogrel 75 mg Tablet PO (10:22)
[2019-06-26] MEDS: levothyroxine 112 mcg Tablet PO (10:22)
[2019-06-26] MEDS: atorvastatin 40 mg Tablet PO (10:22)
[2019-06-26] MEDS: pantoprazole DR 40 mg Tablet PO (10:22)
[2019-06-26] MEDS: aspirin 81 mg Chew Tablet PO (10:23)
[2019-06-26 11:09] LABS: Bilirubin Urine 2+ (NEGATIVE); Blood Urine 2+ (Negative); Glucose Urine UA 2+ (Normal); Ketones Urine Negative (Negative); Leukocyte Esterase Urine 2+ (Negative); Nitrate Urine Negative (Negative); Protein Urine 3+ (Negative); Specific Gravity, Urine 1.015 (1.005-1.030); Urine Appearance Cloudy (CLEAR); Urine Color Yellow (Yellow); Urobilinogen Urine Norm (Negative)
[2019-06-26 11:10] LABS: Add Urine Culture? Yes; Bacteria Urine 1+; Mucus Urine TRACE; WBC Urine >100 /hpf (0-5)
[2019-06-26 11:23] LABS: Apprearance, Body Fluid CLOUDY (CLEAR); Color, Body Fluid COLORLESS (PALE YELLOW)
[2019-06-26 11:33] LABS: Glucose Point of Care 208 mg/dL (70-110)
--- NOTE | 2019-06-26 11:59 | PC.NURSE ---
PER PHARMACY, VTE HEPARIN WILL NOT BE EFFECTED BY PD WHEN GIVEN IN THE ABD
[2019-06-26 12:01] LABS: Albumin Peritoneal Fluid 0.2 g/dL; Amylase Peritoneal Fluid 3 U/L (88-109); pH Peritoneal Fluid 7.5
[2019-06-26] MEDS: bumetanide 1 mg Tablet PO ×2 (12:29→18:24)
[2019-06-26 13:44] LABS: PATH Referral NO
--- NOTE | 2019-06-26 14:28 | PM.PN ---
Subjective Subjective: Interval history: Admitted overnight. H&P and labs noted. This morning patient just finished her dialysis session. On evaluation patient is complaining of mild nausea. States she was not able to have her breakfast because of nausea and vomiting. She is complaining of generalized abdominal pain more than left right upper, right lower quadrants. She denies of having any chills, headache, dizziness, palpitations. She states she does peritoneal dialysis overnight and usually intake and output is equal. She denies of having noticed any change in color of the peritoneal fluid coming out. Medications: Reviewed: Yes Medication Review Details: Metoprolol succinate is PRN rather than daily as per the patient. Vitals/I&O/Wt Last Vital Signs Temp 98.0 F 06/26/19 10:49 Pulse 72 06/26/19 10:49 Resp 14 06/26/19 10:49 BP 106/68 06/26/19 10:49 Pulse Ox 92 06/26/19 10:49 06/25/19 06/26/19 06/26/19 22:59 06:59 14:59 Intake Total 0 / 0 350 / 350 118 / 118 Balance 0 / 0 350 / 350 118 / 118 Weight last 48 hrs Weight 97.296 kg Weight 95.254 kg Physical Exam Narrative: EXAM NARRATIVE: General: No acute distress, AO x3 HEENT: PERRLA, pupils bilaterally equal and reactive Chest: Normal vesicular breath sounds, no added sounds, equal good air entry bilaterally CVS: S1-S2 regular, no murmurs, no tachycardia, no gallops, no rubs Abdomen: Soft, no organomegaly, tender in right upper quadrant, epigastric region, right lower quadrant, no rebound tenderness, bowel sounds present, peritoneal dialysis catheter present in left lower quadrant. Site of insertion of peritoneal dialysis catheter is clean. Neuro: No focal deficits, no facial deformity, AO x3, power 5/5 in all limbs Data : 06/26/19 03:15 06/26/19 03:15 Micro: Microbiology 06/26/19 01:50 Gram Stain - Final Peritoneal Fluid 06/25/19 16:49 Blood Culture - Preliminary Blood SPECIMEN COLLECTED 06/25/19 16:10 Blood Culture - Preliminary Blood SPECIMEN COLLECTED A&P Assessment and plan (1) Abdominal pain: Status: Acute Code(s): R10.9 - Unspecified abdominal pain (2) Nausea & vomiting: Status: Acute Qualifiers: Vomiting Intractability: intractable Vomiting type: unspecified Qualified Code(s): R11.2 - Nausea with vomiting, unspecified Code(s): R11.2 - Nausea with vomiting, unspecified (3) Peritoneal dialysis catheter in place: -has ESRD on PD -PD today, Nephrology consult placed; case discussed briefly with Dr. Mcfarland Status: Acute Code(s): Z99.2 - Dependence on renal dialysis (4) Elevated troponin: Status: Acute Code(s): R79.89 - Other specified abnormal findings of blood chemistry (5) Chronic renal failure: Status: Acute Qualifiers: Chronic kidney disease stage: unspecified stage Qualified Code(s): N18.9 - Chronic kidney disease, unspecified Code(s): N18.9 - Chronic kidney disease, unspecified Additional A&P Information Abdominal pain/nausea and vomiting: Etiology unclear. Could be multifactorial. At this time cannot rule out PD peritonitis as patient has generalized abdominal tenderness though patient does not have any elevated white count. Patient has a history of cholecystectomy though biliary stasis versus postcholecystectomy syndrome cannot be ruled out. Patient complains of mild dysuria and has a history of UTI in the past. CT abdomen done yesterday negative for any pancreatitis and lipase is normal on admission. Most likely symptoms are due to diabetic gastroparesis versus gastritis but will have to rule out all the above said differentials. Check peritoneal fluid for fluid analysis, LDH, pH. Peritoneal fluid for Gram stain and culture. Check urinalysis with reflex urine culture. Patient states she makes minimal urine. Will do bladder scan and do straight cath for the sample. Check MRCP in view of postcholecystectomy status. We will hold off on any antibiotics till the peritoneal fluid has been collected. At present patient is not in sepsis. We will continue to follow and monitor vitals. We will change the diet from regular to clear liquid diet carb consistent. Will advance gradually as tolerated. Zofran as needed. Protonix p.o. daily. Elevated troponins: Most likely due to stress from abdominal pain and nausea and vomiting along with chronic kidney disease. No changes in the EKGs done overnight. Patient is chest pain-free. Troponins plateaued and then started trending down. We will continue telemetry. Chronic kidney disease/peritoneal dialysis: Nephrology recommendations appreciated. No dyslipidemia. Medications reconciliation. We will continue to follow BMP. Anemia: Most likely of chronic disease. Iron panel and ferritin reviewed. Will not start patient on any oral supplementation given the elevated ferritin. Given the symptoms and multiple possible differentials will change the admission from observation to inpatient. Morbid obesity: BMI-35 kg/m2 Depression/Anxiety HTN: Blood pressure under control. We will continue to monitor. Continue with Imdur 30 mg. Patient states metoprolol succinate is PRN for blood pressure. So we will change it to metoprolol tartrate 50 mg twice daily as needed twice daily. Hyperlipidemia Hypothyroidism IDDM type II: Mild insulin sliding scale and Accu-Cheks with meals and bedtime. Peripheral vascular disease s/p R BKA, venous stasis ulcers on LLE (present on admission) Protonix for PUD prophylaxis. Heparin 5000 subcu every 12 for DVT prophylaxis. -Dispo: home -Code status: FULL code Attestations Medical Necessity Statement*: Needs continued hospitalization and inpatient admission as patient would most likely need more than 2 midnights for evaluation and management of abdominal pain and nausea and vomiting. Time Spent in Patient Care: Greater than 35 minutes Coding Level of Care Code Acute Orthopedic Shoe Maker for Chg Fwd Diagnoses Abdominal pain R10.9 Nausea & vomiting R11.2 Vomiting Intractability: intractable Vomiting type: unspecified Peritoneal dialysis catheter in place Z99.2 Elevated troponin R79.89 Chronic renal failure N18.9 Chronic kidney disease stage: unspecified stage
--- NOTE | 2019-06-26 14:28 | PC.NURSE ---
PATIENT TO MRI WITH [facility]
[2019-06-26] MEDS: Dianeal low Ca w/1.5% dex 2,000 mL Bag 2000 ML INTRAPERIT ×2 (16:00→21:23)
[2019-06-26 16:40] LABS: Glucose Point of Care 134 mg/dL (70-110)
--- NOTE | 2019-06-26 17:25 | PC.NURSE ---
PATIENT TOLERATED PD WELL ; PATIENT WEIGHT PT PD 220.8 ; PATIENT WEIGHT S/P PD 220.6
[2019-06-26 17:59] LABS: Body Fluid WBC 1 u/L; Monocytes # Body Fluid 0.001 10^3/uL; RBC, Body Fluid 0 10^3/uL (0-0)
[2019-06-26 18:03] LABS: Apprearance, Body Fluid CLEAR (CLEAR); Color, Body Fluid COLORLESS (PALE YELLOW)
[2019-06-26 18:10] LABS: Influenza A by IFA Negative (Negative); Influenza B by IFA Negative (Negative)
[2019-06-26 18:17] LABS: Total Protein Peritoneal Fluid 0.2 g/dL; pH Peritoneal Fluid 7.5
--- NOTE | 2019-06-26 18:30 | PC.CHAP ---
Pastoral Care Encounter/Spiritual Assessment Type of Contact [] Declined solar energy specialist visit [] Patient/Family/Request visit [] Outpatient visit [] Follow-up visit [] Physician referral [] Code/Alert [x] Routine visit [] Staff referral [] Actively dying [] Patient sleeping [] Family support [] [] Out of room [] Palliative care [] [] Receiving care in room [] Pre-surgical visit [] Trauma [] Long length of stay [] ICU visit [] Other: Relational/Emotional Strength [] Patient feels connected with others/family/visitors/staff [x] Distress [x] Loneliness/isolation [x] Abandonment Spirituality of Patient [x] Person of [place] [] Attends Hoahaoism of their [place] [x] Believes in Prayer [] Reads Bible or Pentecostal materials [] There are Spiritual issues to be addressed Ep Specialist Interventions [x] Prayer [x] Active listening [x] Non-anxious presence [x] Spiritual/emotional support [] Crisis/trauma care [x] Spiritual counseling [] Bereavement support [] Provided bereavement packet [] Provided Bible/devotional materials [] Provided toy/stuffed animal, coloring book to patient or family member [x] Completed spiritual assessment [] Provided Communion [] Anointing/[place] [] Salvation [] Other: Impact on Illness or Injury [] Angry [] Fearful [x] Anxious [] Often cries [] Exhaustion [x] Unable to work [] Unable to attend buddhism [] Unable to walk/stand [] Unable to read [] Unable to drive [] Unable to eat/drink [] Unable to sleep [] Unable to be with family [] Other: Summary Patient expressed feelings of being alone, family not being understanding of her medical condition. There is conflict between her and her adult daughters that is causing her stress and anxiety. Patient stated that she has had one partial leg amputation and is fearful that she may lose the other one as well. Patient expressed frustration over not being able to clean house and do other things that she is used to doing. Time spent with patient 30 minutes
[2019-06-26 20:53] LABS: Glucose Point of Care 241 mg/dL (70-110)
[2019-06-27 03:32] VITALS: BP 108/53; PULSE 66; RESP 16
[2019-06-27] MEDS: Dianeal low Ca w/1.5% dex 2,000 mL Bag 2000 ML INTRAPERIT ×2 (03:32→09:40)
[2019-06-27 03:42] VITALS: BP 108/53; PULSE 66; RESP 17; O2SAT 94
[2019-06-27] MEDS: heparin 5,000 unit/mL INJ 1 mL 5000 UNIT SUBCUT (03:45)
[2019-06-27 04:07] LABS: Alanine Aminotransferase 11 U/L (0-33); Albumin Level 2.6 g/dL (3.5-5.2); Alkaline Phosphatase 89 IU/L (35-105); Anion Gap 17.5 (5-19); Aspartate Amino Transferase 12 U/L (0-32); Blood Urea Nitrogen 32 mg/dL (6-20); Calcium 9.6 mg/Dl (8.6-10.0); Carbon Dioxide 29 mmol/L (22-29); Chloride 92 mmol/L (98-107); Globulin 3.9 g/dL (1.3-4.6); Glomerular Filtration Rate 5.1 mL/min (90-130); Glucose 116 mg/dL (74-109); Magnesium 1.4 mg/dL (1.7-2.3); Potassium 3.5 mmol/L (3.5-5.1); Sodium 135 mmol/L (136-145); Total Bilirubin 0.4 mg/dL (0.15-1.2); Total Protein 6.5 g/dL (6.6-8.7)
--- NOTE | 2019-06-27 06:07 | PM.PN ---
Subjective Subjective: Interval history: states she had pain nw/ peritoneal dialysis. no sob. no cp Medications: Reviewed: Yes Medication Review Details: Current Medications Acetaminophen (Tylenol) 650 mg PO Q6H PRN PRN Reason: Mild/Mod Pain Or Temp >/= 101 Aspirin (Aspirin Chewable) 81 mg PO DAILY [facility] Last Admin: 06/26/19 10:23 Dose: 81 mg Documented by: Atorvastatin Calcium (Lipitor) 40 mg PO DAILY [facility] Last Admin: 06/26/19 10:22 Dose: 40 mg Documented by: Bumetanide (Bumex) 1 mg PO BID [facility] Last Admin: 06/26/19 18:24 Dose: 1 mg Documented by: Clopidogrel Bisulfate (Plavix) 75 mg PO DAILY [facility] Last Admin: 06/26/19 10:22 Dose: 75 mg Documented by: Dextrose (D50w) 25 ml IVP ONCE PRN; Protocol PRN Reason: hypoglycemia protocol Dextrose (D50w) 50 ml IVP PRN PRN; Protocol PRN Reason: hypoglycemia protocol Glucagon (Glucagen) 1 mg IM ONCE PRN; Protocol PRN Reason: Adult Acute Hypoglycemia Prot. Heparin Sodium (Beef Lung) (Heparin) 5,000 unit SUBCUT Q8H [facility] Last Admin: 06/27/19 03:45 Dose: 5,000 unit Documented by: Dextrose (D5w) 500 mls @ 100 mls/hr IV ONCE PRN; Protocol PRN Reason: Adult Acute Hypoglycemia Prot Ceftriaxone Sodium 1,000 mg/ (Sodium Chloride) 50 mls @ 100 mls/hr IV Q24H [facility]; Protocol Insulin Aspart (Novolog) 0 unit SUBCUT WM&BEDTIME [facility]; Protocol Last Admin: 06/26/19 21:20 Dose: 8 unit Documented by: Isosorbide Mononitrate (Imdur) 30 mg PO DAILY [facility] Last Admin: 06/26/19 11:45 Dose: Not Given Documented by: Levothyroxine Sodium (Synthroid) 112 mcg PO DAILY [facility] Last Admin: 06/26/19 10:22 Dose: 112 mcg Documented by: Metoprolol Tartrate (Lopressor) 50 mg PO BID PRN PRN Reason: blood Morphine Sulfate (Morphine) 1 mg IVP Q4H PRN PRN Reason: SEVERE PAIN Ondansetron HCl (Zofran) 4 mg IVP Q6H PRN PRN Reason: NAUSEA AND VOMITING Last Admin: 06/26/19 08:47 Dose: 4 mg Documented by: Pantoprazole Sodium (Protonix) 40 mg PO DAILY [facility] Last Admin: 06/26/19 10:22 Dose: 40 mg Documented by: Peritoneal Dialysis Solution (Dianeal Low Ca W/1.5% Dex) 2,000 ml INTRAPERIT Q6H [facility] Last Admin: 06/27/19 03:32 Dose: 2,000 ml Documented by: Vitals/I&O/Wt Last Vital Signs Temp 98.5 F 06/26/19 23:12 Pulse 66 06/27/19 03:42 Resp 17 06/27/19 03:42 BP 108/53 06/27/19 03:42 Pulse Ox 94 06/27/19 03:42 06/26/19 06/26/19 06/27/19 14:59 22:59 06:59 Intake Total 118 / 118 120 / 238 2000 / 2238 Output Total 1720 / 1720 Balance 118 / 118 120 / 238 280 / 518 Weight last 48 hrs Weight 97.84 kg Weight 97.296 kg Weight 95.254 kg Physical Exam Narrative: EXAM NARRATIVE: comfortable in bed NARD vs noted heent- nc/at, eomi, anicteric neck- supple, no jvp lungs are clear heart reg abd soft, nt, nd, + tenkoff catheter ext rt bka, left leg bandaged, no edema neuro- a,a, o x3 Data : 06/26/19 03:15 06/27/19 03:10 Micro: Microbiology 06/25/19 16:49 Blood Culture - Preliminary Blood NEGATIVE TO DATE 06/25/19 16:10 Blood Culture - Preliminary Blood NEGATIVE TO DATE 06/26/19 01:50 Gram Stain - Final Peritoneal Fluid A&P Additional A&P Information 1. ESRD- cont CAPD- 4 exchanges a day of low glucose, 2 l fills 2. + trop per pmd 3. anemia- high ferritin- low dose epo 4. electrolytes- hypercalcemia- improved replace mag phos binder 5. n/v- likely DM gastroparesis, and poor compliance w/ dialysis 6. DM control 7. PVD- s/p Rt BKA. LLE will need an angiogram Attestations Medical Necessity Statement*: per hospitalist Time Spent in Patient Care: 16 - 35 minutes (>than 50% of time spent in counselling and/or direct pt care on unit). Coding Level of Care Code Acute Speaking Unit Assembler for Maris Braden
[2019-06-27 06:37] LABS: Glucose Point of Care 135 mg/dL (70-110)
[2019-06-27 06:42] VITALS: BP 107/61; PULSE 65; RESP 13; TEMP 37.1; O2SAT 90
[2019-06-27] MEDS: cefTRIAXone 1,000 MG in sodium chloride 0.9% (plus) 50 ML 100 MG IV (07:11)
[2019-06-27] MEDS: ondansetron 2 mg/ML SDV 2 mL 4 MG IVP (08:12)
[2019-06-27] MEDS: pantoprazole DR 40 mg Tablet PO (09:39)
[2019-06-27] MEDS: atorvastatin 40 mg Tablet PO (09:39)
[2019-06-27] MEDS: clopidogrel 75 mg Tablet PO (09:39)
[2019-06-27] MEDS: levothyroxine 112 mcg Tablet PO (09:39)
[2019-06-27] MEDS: sevelamer 800 mg Tablet PO (09:39)
[2019-06-27] MEDS: aspirin 81 mg Chew Tablet PO (09:39)
[2019-06-27] MEDS: isosorbide mononitrate ER 30 mg Tablet PO (09:39)
[2019-06-27 10:03] LABS: Basophils % 0.5 %; Eosinophils # 0.1 10^3/uL (0.0-0.8); Eosinophils % 2.5 %; Hemoglobin 8.2 g/dL (11.5-15.3); Lymphocytes # 1.2 10^3/uL (0.8-4.8); Lymphocytes % 21.5 %; Mean Corpuscular HGB Conc 32.8 g/dL (30.0-36.0); Mean Corpuscular Hemoglobin 31.9 pg (28.0-34.0); Mean Corpuscular Volume 97.3 fL (81-99); Mean Platelet Volume 11.2 fL (7.4-10.4); Monocytes # 0.4 10^3/uL (0.2-0.9); Monocytes % 7.2 %; Neutrophils # 3.8 10^3/uL (1.8-7.7); Neutrophils % 67.9 %; Nucleated Red Blood Cells % 0 %; Platelet Count 182 10^3/cmm (130-400); Red Blood Count 2.57 10^6/uL (4.1-5.3); Red Cell Distribution Width 13.1 % (12.1-15.1); White Blood Count 5.5 10^3/uL (4.0-10.0)
[2019-06-27 10:40] VITALS: BP 106/54; PULSE 74; RESP 17; TEMP 36.7; O2SAT 96
--- NOTE | 2019-06-27 11:07 | P.DS_ITS ---
Discharge Providers Date of Admission: 06/26/19 14:42 Date of Discharge: 06/27/19 Attending Provider at Admission: Tierra Jung MD Attending Provider at Discharge: Flash Luciano MD Consults: Telemetry nephrology Primary Care Provider: Yovany Leonardo MD Diagnoses at Discharge Discharge Diagnosis (1) Abdominal pain: Status: Acute (2) Nausea & vomiting: Status: Acute Qualifiers: Vomiting Intractability: intractable Vomiting type: unspecified Qualified Code(s): R11.2 - Nausea with vomiting, unspecified (3) Peritoneal dialysis catheter in place: Status: Acute (4) Elevated troponin: Status: Acute (5) Chronic renal failure: Status: Acute Qualifiers: Chronic kidney disease stage: unspecified stage Qualified Code(s): N18.9 - Chronic kidney disease, unspecified (6) Gastroparesis: Status: Acute (7) Peripheral vascular disease: Status: Acute Reason for Visit Reason for Visit: Reason For Visit: N/V Hospital Course Discharge Summary: Rizwana Herzog is a 54 year old female with PMHx of ESRD on PD, CAD, HTN, IDDM type II, Hypothyroidism, GERD, Hyperlipidemia, PVD s/p R BKA; presented to the ED on June 25 with c/o nausea, NBNB emesis x 2 weeks and vague periumbilical abdominal discomfort that seems to have worsened over the past day or so. She has chronic issues with nausea and vomiting since starting PD but states this particular episode seemed to worsen more than usual. Follow symptoms of abdominal pain with nausea and vomiting peritoneal dialysis peritonitis was ruled out with a normal fluid cell study, pancreatitis was ruled out on CT imaging and normal lipase, patient is postcholecystectomy and any biliary pathology was ruled out with a normal MRCP. Patient's UA was suggestive of UTI so was started on ceftriaxone as patient had mild dysuria and symptoms could be because of UTI. But given her past medical history of noncompliance with dialysis and uncontrolled blood sugars it is most likely from either diabetic gastroparesis versus postcholecystectomy syndrome. Patient was counseled and educated regarding both the possibilities and was asked to follow- up with business continuity specialist as an outpatient in [place] in next couple of weeks. At start patient was kept on clear liquid diet which was eventually advanced to GI soft which patient had tolerated well. Patient is advised to continue brat diet for a week and then gradually advance to regular diet as tolerated. For UTI patient is advised to take levothyroxine as per the renal dose to finish a course of 7 days. Given her anuric state because of CKD patient's home dose of Bumex at noon was discontinued as that could be leading to mild uremia as well leading to have similar symptoms. Patient's home dose of Lantus was changed to pre-meal NovoLog as per the sliding scale given her fluctuating blood sugars. Patient is been discharged in hemodynamically stable condition and has been set up with [facility] home health services for wound care offer chronic venous stasis ulcers on the left leg for which she is being followed up as an outpatient in [place] and is scheduled for a peripheral angiogram to assess vasculature in coming weeks. Physical Exam Narrative: EXAM NARRATIVE: General: No acute distress, AO x3 HEENT: PERRLA, pupils bilaterally equal and reactive Chest: Normal vesicular breath sounds, no added sounds, equal good air entry bilaterally CVS: S1-S2 regular, no murmurs, no tachycardia, no gallops, no rubs Abdomen: Soft, no organomegaly, mild generalized tenderness all over the abdomen, no rebound tenderness, bowel sounds present, peritoneal dialysis c atheter present in left lower quadrant. Site of insertion of peritoneal dialysis catheter is clean. Neuro: No focal deficits, no facial deformity, AO x3, power 5/5 in all limbs Discharge Data Data Completed and Pending: Completed Studies During Hospitalization Category Date Time Status CT abdomen pelvis wo con [id number] Urge nt Cat Scan 06/25/19 15:58 Completed XR chest 1V sandra ble [id number] Urgent Exams 06/25/19 15:58 Completed MR MRCP [id number] Rou ramsey MRI 06/26/19 08:43 Completed Pending at discharge Category Date Time Status Blood Culture Sta t Lab 06/25/19 16:49 Results Body Fluid Cultur e & GS Routine Lab 06/26/19 01:50 Results Comprehensive Met abolic Panel AM LA BS Lab 06/28/19 04:00 Ordered Comprehensive Met abolic Panel AM LA BS Lab 06/29/19 04:00 Ordered Magnesium AM LABS Lab 06/28/19 04:00 Ordered Magnesium AM LABS Lab 06/29/19 04:00 Ordered Phosphorus AM LAB S Lab 06/28/19 04:00 Ordered Phosphorus AM LAB S Lab 06/29/19 04:00 Ordered Urine Culture Vadim ramsey Lab 06/26/19 09:45 Received Labs from last 24 hours 06/27/19 06/27/19 06/27/19 09:29 06:26 03:10 WBC 5.5 RBC 2.57 L Hgb 8.2 L Hct 25.0 L MCV 97.3 MCH 31.9 MCHC 32.8 RDW 13.1 Plt Count 182 MPV 11.2 H Neut % (Auto) 67.9 Lymph % (Auto) 21.5 [place] % (Auto) 7.2 Eos % (Auto) 2.5 Baso % (Auto) 0.5 Neut # (Auto) 3.8 Lymph # (Auto) 1.2 [place] # (Auto) 0.4 Eos # (Auto) 0.1 Baso # (Auto) 0.0 Nucleated RBC % (a uto) 0 Nucleated RBCs # 0.0 Differential Comme nt Sodium 135 L Potassium 3.5 Chloride 92 L Carbon Dioxide 29 Anion Gap 17.5 BUN 32 H Creatinine 8.1 H* GFR Calculation 5.1 L Glucose 116 H POC Glucose 135 Calcium 9.6 Phosphorus 5.0 H Magnesium 1.4 L Total Bilirubin 0.4 AST 12 ALT 11 Alkaline Phosphata se 89 Total Protein 6.5 L Albumin 2.6 L Globulin 3.9 Urine Color Urine Appearance Urine pH Ur Specific Gravit y Urine Protein Urine Glucose (UA) Urine Ketones Urine Occult Blood Urine Nitrate Urine Bilirubin Urine Urobilinogen Ur Leukocyte Yara ase Urine RBC Urine WBC Ur Squamous Epith Cells Urine Bacteria Urine Mucus Fluid Color Fluid Appearance Fluid WBC Fluid RBC Fluid Tot Cell Cou nt Fld Polynuclear WB Cs # Fld Polynuclear WB Cs % Fl Mononucl WBCs # (Auto) Fl Mononuclear % A uto Peritoneal pH Peritoneal Tot Pro tein Peritoneal Albumin Peritoneal LDH Peritoneal Glucose Peritoneal Amylase Influenza Type A A g POC Influenza B Ag 06/26/19 06/26/19 06/26/19 20:49 17:20 17:20 WBC RBC Hgb Hct MCV MCH MCHC RDW Plt Count MPV Neut % (Auto) Lymph % (Auto) T[place] % (Auto) Eos % (Auto) Baso % (Auto) Neut # (Auto) Lymph # (Auto) [place] # (Auto) Eos # (Auto) Baso # (Auto) Nucleated RBC % (a uto) Nucleated RBCs # Differential Comme nt Sodium Potassium Chloride Carbon Dioxide Anion Gap BUN Creatinine GFR Calculation Glucose POC Glucose 241 Calcium Phosphorus Magnesium Total Bilirubin AST ALT Alkaline Phosphata se Total Protein Albumin Globulin Urine Color Urine Appearance Urine pH Ur Specific Gravit y Urine Protein Urine Glucose (UA) Urine Ketones Urine Occult Blood Urine Nitrate Urine Bilirubin Urine Urobilinogen Ur Leukocyte Yara ase Urine RBC Urine WBC Ur Squamous Epith Cells Urine Bacteria Urine Mucus Fluid Color Colorless Fluid Appearance Clear Fluid WBC 1 Fluid RBC 0 Fluid Tot Cell Cou nt Not Reportable Fld Polynuclear WB Cs # 0.000 Fld Polynuclear WB Cs % 0.000 Fl Mononucl WBCs # (Auto) 0.001 Fl Mononuclear % A uto 100.000 Peritoneal pH 7.5 Peritoneal Tot Pro tein 0.2 Peritoneal Albumin Peritoneal LDH 10.0 Peritoneal Glucose 444.0 Peritoneal Amylase Influenza Type A A g Negative POC Influenza B Ag Negative 06/26/19 06/26/19 06/26/19 16:35 10:48 09:45 WBC RBC Hgb Hct MCV MCH MCHC RDW Plt Count MPV Neut % (Auto) Lymph % (Auto) [place] % (Auto) Eos % (Auto) Baso % (Auto) Neut # (Auto) Lymph # (Auto) [place] # (Auto) Eos # (Auto) Baso # (Auto) Nucleated RBC % (a uto) Nucleated RBCs # Differential Comme nt Sodium Potassium Chloride Carbon Dioxide Anion Gap BUN Creatinine GFR Calculation Glucose POC Glucose 134 208 Calcium Phosphorus Magnesium Total Bilirubin AST ALT Alkaline Phosphata se Total Protein Albumin Globulin Urine Color Yellow Urine Appearance Cloudy Urine pH 5.0 Ur Specific Gravit y 1.015 Urine Protein 3+ H Urine Glucose (UA) 2+ Urine Ketones Negative Urine Occult Blood 2+ H Urine Nitrate Negative Urine Bilirubin 2+ H Urine Urobilinogen Norm Ur Leukocyte Yara ase 2+ H Urine RBC 10-15 H Urine WBC >100 H Ur Squamous Epith Cells 5-10 H Urine Bacteria 1+ H Urine Mucus Trace Fluid Color Fluid Appearance Fluid WBC Fluid RBC Fluid Tot Cell Cou nt Fld Polynuclear WB Cs # Fld Polynuclear WB Cs % Fl Mononucl WBCs # (Auto) Fl Mononuclear % A uto Peritoneal pH Peritoneal Tot Pro tein Peritoneal Albumin Peritoneal LDH Peritoneal Glucose Peritoneal Amylase Influenza Type A A g POC Influenza B Ag 06/26/19 06/26/19 09:45 08:30 WBC RBC Hgb Hct MCV MCH MCHC RDW Plt Count MPV Neut % (Auto) Lymph % (Auto) [place] % (Auto) Eos % (Auto) Baso % (Auto) Neut # (Auto) Lymph # (Auto) [place] # (Auto) Eos # (Auto) Baso # (Auto) Nucleated RBC % (a uto) Nucleated RBCs # Differential Comme nt No Sodium Potassium Chloride Carbon Dioxide Anion Gap BUN Creatinine GFR Calculation Glucose POC Glucose Calcium Phosphorus Magnesium Total Bilirubin AST ALT Alkaline Phosphata se Total Protein Albumin Globulin Urine Color Urine Appearance Urine pH Ur Specific Gravit y Urine Protein Urine Glucose (UA) Urine Ketones Urine Occult Blood Urine Nitrate Urine Bilirubin Urine Urobilinogen Ur Leukocyte Yara ase Urine RBC Urine WBC Ur Squamous Epith Cells Urine Bacteria Urine Mucus Fluid Color Colorless Fluid Appearance Cloudy Fluid WBC TNP Fluid RBC TNP Fluid Tot Cell Cou nt TNP Fld Polynuclear WB Cs # TNP Fld Polynuclear WB Cs % TNP Fl Mononucl WBCs # (Auto) TNP Fl Mononuclear % A uto TNP Peritoneal pH 7.5 Peritoneal Tot Pro tein Peritoneal Albumin 0.2 Peritoneal LDH 10.0 Peritoneal Glucose Peritoneal Amylase 3 L Influenza Type A A g POC Influenza B Ag Vitals: Last Vital Signs Temp 98.0 F 06/27/19 10:40 Pulse 74 06/27/19 10:40 Resp 17 06/27/19 10:40 BP 106/54 06/27/19 10:40 Pulse Ox 96 06/27/19 10:40 Discharge Plan Discharge Patient Disposition: Home Health Service Condition: Stable Prescriptions: New levofloxacin 250 mg tablet 250 mg PO EVERY OTHER DAY 5 Days Qty: 3 RF: 0 Novolog PenFill U-100 Insulin 100 unit/mL cartridge See Rx Instructions .ROUTE .COMPLEX Qty: 100 RF: 1 Continued atorvastatin 40 mg tablet 40 mg PO DAILY RF: 0 metoprolol succinate 50 mg tablet extended release 24 hr 50 mg PO DAILY RF: 0 isosorbide mononitrate 30 mg Tablet Extended Release 24 Hr 30 mg PO DAILY RF: 0 clopidogrel 75 mg tablet 75 mg PO DAILY RF: 0 pantoprazole 40 mg tablet,delayed release (DR/EC) 40 mg PO DAILY RF: 0 levothyroxine 112 mcg Tablet 112 mcg PO DAILY RF: 0 aspirin 81 mg Tablet,Chewable 81 mg PO DAILY RF: 0 Discontinued bumetanide 1 mg tablet 1 mg PO BID RF: 0 Lantus Solostar U-100 Insulin 100 unit/mL (3 mL) insulin pen 30 unit SUBCUT BID RF: 0 Discharge Orders: Discharge Order (Routine); Ordered 06/27/19 Ordered By: Flash Luciano Referrals: Yovany Leonardo MD [Primary Care Provider] - (You have an follow-up appointment with Dr. Leonardo on July 05 at 2:00p.m. If, you have any questions or need to reschedule. Please, Call ) Discharge Diet: Advance as tolerated and GI Soft Discharge Activity: Resume usual activity Patient Instructions: Levofloxacin (By mouth), Insulin Aspart, Recombinant (Injection), Diabetic gastroparesis (DC), Chronic Kidney Disease (DC), Acute Nausea and Vomiting (DC), Acute Abdominal Pain (DC), Peripheral Vascular Disease Activity Restrictions/Additional Instructions: Insulin NovoLog to be taken pre-meals as per the sliding scale Blood sugar 150?200 -2 units 200?250 -6 units 251?300 -8 units 301?350 -10 units Bumex to be withheld. Follow-up with your public utilities sales representative in [place] within 7 to 10 days or at an early several appointment. Follow-up with business continuity specialist in [place] for gastroparesis. Will need to follow-up with your primary care physician for referral. Discharge Attestations Time Spent in Discharge Care*: greater than 30 min Specific Discharge Activities: Specific discharge activities: educating patient, educating and/or supporting family/caregiver and discussing with insurance case manager/social workers/dc planners Status at Discharge: Cognitive status at discharge: cognitively intact , Behavioral status at discharge: cooperative , Functional status at discharge: independent ambulation Overall status at discharge: patient is progressing back to baseline Quality Metrics Clinical Quality Measures During this hospital stay, did patient experience: None Coding Level of Care Code 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
[2019-06-27 11:27] LABS: Glucose Point of Care 212 mg/dL (70-110)
[2019-06-27 12:36] VITALS: BP 106/54; PULSE 74; RESP 17; TEMP 36.7; O2SAT 96
== END 2019-06-27 13:50 | disposition home health service (06) | DRG 444 ==
LOC: ER 19:24 → CSU 20:22
PROVIDERS: Internal Medicine Nephrology; Admitting Provider Family Medicine; Emergency Provider Family Medicine; Family Provider Internal Medicine; PCP Internal Medicine; Visit Provider Student in an Organized Health Care Education/Training Program
DX: K91.5 Postcholecystectomy syndrome (principal); N18.6 End stage renal disease; R18.8 Other ascites; I13.2 Hypertensive heart and chronic kidney disease with heart failure and with stage 5 chronic kidney disease, or end stage renal disease; I50.32 Chronic diastolic (congestive) heart failure; N39.0 Urinary tract infection, site not specified; E11.43 Type 2 diabetes mellitus with diabetic autonomic (poly)neuropathy; E11.22 Type 2 diabetes mellitus with diabetic chronic kidney disease; Y83.6 Removal of other organ (partial) (total) as the cause of abnormal reaction of the patient, or of later complication, without mention of misadventure at the time of the procedure; K31.84 Gastroparesis; Z99.2 Dependence on renal dialysis; I25.10 Atherosclerotic heart disease of native coronary artery without angina pectoris; E03.9 Hypothyroidism, unspecified; I25.2 Old myocardial infarction; K21.9 Gastro-esophageal reflux disease without esophagitis; E78.5 Hyperlipidemia, unspecified; E11.51 Type 2 diabetes mellitus with diabetic peripheral angiopathy without gangrene; Z89.511 Acquired absence of right leg below knee; I87.2 Venous insufficiency (chronic) (peripheral); F41.9 Anxiety disorder, unspecified; Z79.4 Long term (current) use of insulin; Z86.73 Personal history of transient ischemic attack (TIA), and cerebral infarction without residual deficits; Z90.710 Acquired absence of both cervix and uterus
CPT/HCPCS: 11042; 11045; 12345; 36415; 36416; 36600; 51702; 51798; 71045; 74176; 74181; 80048; 80051; 80053; 80500; 81001; 82009; 82042; 82150; 82728; 82803; 82810; 82945; 82962; 83540; 83550; 83605; 83615; 83690; 83735; 83986; 84100; 84157; 84443; 84484; 85025; 87040; 87070; 87075; 87077; 87086; 87186; 87205; 87804; 89050; 90935; 93005; 96372; 96374; 96375; 99281; 99283; G0378; J0696; J1644; J1720; J1815; J2405; J3475; J7030; Q3014

== ENCOUNTER 2019-06-30 14:38 | Outpatient (RCR) | payer MEDICARE, MEDICAID, SELFPAY | END 2019-07-07 23:59 | disposition home or self-care (01) | LOC: WOUND 14:38 | PROVIDERS: Family Provider Internal Medicine; PCP Internal Medicine; Visit Provider Surgery | DX: E11.621 Type 2 diabetes mellitus with foot ulcer (principal); L97.522 Non-pressure chronic ulcer of other part of left foot with fat layer exposed | CPT/HCPCS: 11042; 11045; 87070; 87077; 87176; 87186; 87205; 99213; G0463 ==

== ENCOUNTER 2019-06-30 15:15 | Inpatient (IN) | payer MEDICARE, MEDICAID, SELFPAY ==
[2019-06-30 15:15] VITALS: BP 96/64; PULSE 67; RESP 16; TEMP 36.7; O2SAT 97; BMI 34.6
--- NOTE | 2019-06-30 15:17 | ED_ITS ---
Entered by Anselmo Horton, acting as scribe for Karan Daniels DO Documented by User: Karan Daniels DO 07/01/19 10:26 HPI - Chest Pain General: Chief Complaint: Chest Pain Stated Complaint: CHEST PAIN Time Seen by Provider: 06/30/19 15:26 History of Present Illness: HPI narrative: 54 yo female presents with chest pain. Pt was sent here from Wound care for the chest pain. pt states that her chest pain isn't as bad right now as it was in the clinic. MD complaint: chest pain Onset (ago): hour(s) Timing of current episode: constant Prior episodes: No Onset: during rest Pain radiation: none Severity: moderate Quality: tightness and heaviness Associated symptoms: Deny abdominal pain, dyspnea, fever(s), nausea, palpitations, syncope or vomiting Treatment prior to arrival: aspirin and other (zofran) Review of Systems Const: Denies: fever, chills, body aches, fatigue, malaise or night sweats Eyes: Denies: change in vision or blurry vision ENMT: Denies: throat pain, oral sores/lesions, dental pain, nasal discharge or nasal congestion Card: Reports: chest pain; Denies: palpitations, irregular heart rhythm, edema, syncope, shortness of breath on exertion, shortness of breath when lying down or leg pain with ex ertion Resp: Denies: shortness of breath, productive cough, non-productive cough or wheezing GI: Denies: abdominal pain, nausea, vomiting, vomiting blood, coffee grounds in vomit, difficulty swallowing, heartburn/indigestion, diarrhea, constipation, cramping, blood in stool or black tarry stool : Denies: flank pain, painful urination, urinary frequency, urinary urgency, urinary incontinence or blood in urine Musc: Denies: neck pain, back pain, extremity pain, extremity swelling, joint pain or joint swelling Skin/Breast: Denies: rash, itching or redness Neuro: Denies: headache, numbness in extremities, weakness in extremities, changes in sensation, lack of coordination, difficulty walking, frequent falls, dizziness, vertigo or confusion Psych: Denies: anxiety, depression, loss of interest, visual hallucinations, auditory hallucinations, suicidal ideation or homicidal ideation Endo: Denies: excessive urination, excessive thirst, tired all the time or cold intolerance Refugio/Lymph: Denies: easy bruising, easy bleeding, petechiae, enlarged lymph nodes or tender lymph nodes PFSH ED PFSH: Statuses (acute, chronic, etc) shown below reflect problem list status as previously entered and may not be historically accurate Medical History Anxiety (Acute) Cholecystitis (Acute) Chronic diastolic CHF (congestive heart failure) (Acute) Depression (Acute) Diabetes (Acute) Insulin-dependent Gastroparesis (Acute) Gastroparesis (Acute) GERD (gastroesophageal reflux disease) (Acute) History of left heart catheterization (Acute) HTN (hypertension) (Acute) Hyperlipidemia (Acute) Hypothyroidism (Acute) Myocardial infarction (Acute) Peripheral vascular disease (Acute) Peritoneal dialysis catheter in place (Acute) Renal failure (Acute) TIA (transient ischemic attack) (Acute) Surgical History History of appendectomy (Acute) History of heart artery stent (Acute) History of hysterectomy (Acute) History of right below knee amputation (Acute) Family History (Updated 06/30/19 @ 20:39 by Daksha Burdick MD) Denies family history of CAD (coronary artery disease) Clotting disorder Dementia Bleeding disorder Social History Smoking and tobacco status: never smoked Alcohol intake: never Household members: spouse and family Physical Exam Const: COMMON NORMALS: average body habitus, oriented x3 and alert GENERAL APPEARANCE: cooperative, comfortable, well kempt and well developed NUTRITIONAL APPEARANCE: obese ORIENTATION/CONSCIOUSNESS: Yes awake, Yes oriented to person and Yes oriented to place HENMT: COMMON NORMALS: normocephalic, head/scalp atraumatic, EAC's normal, TM's normal bilaterally, external nose normal, moist oral mucous membranes and oropharynx normal HEAD & SCALP: normocephalic and atraumatic NOSE: external nose normal EXTERNAL AUDITORY CANAL: EAC's normal TYMPANIC MEMBRANE: TM's normal bilaterally MOUTH: oral and palatal mucosa normal, lip normal and tongue normal THROAT: posterior oropharynx normal and tonsils normal Eye: COMMON NORMALS: PERRL, EOMs intact bilaterally, conjunctivae normal and no scleral icterus CONJUNCTIVA: Yes conjunctivae normal PUPIL: Yes PERRL Neck/C-Spine: COMMON NORMALS: full ROM, no lymphadenopathy, supple, no meningeal signs and thyroid normal THYROID: thyroid normal and asymmetrical Lymph: LYMPHATIC: no lymphadenopathy noted Resp: COMMON NORMALS: normal respiratory effort, no retractions, no use of accessory muscles and clear to auscultation bilaterally AUSCULTATION: clear to auscultation bilaterally Cardio: COMMON NORMALS: regular rate and regular rhythm RATE: regular rate RHYTHM: regular rhythm HEART SOUNDS: no murmurs GI: COMMON NORMALS: normal to inspection, nondistended, normoactive bowel sounds, soft to palpation and no hepatosplenomegaly PALPATION: Yes soft and Yes no hepatosplenomegaly : COMMON NORMALS: Yes no CVA tenderness BLADDER/KIDNEY EXAM: Yes no CVA tenderness Back/Pelvis: COMMON NORMALS: no CVA tenderness LUMBAR SPINE/LOWER BACK: Yes normal to inspection Extremity: GENERAL: Yes amputation (right leg amputation) Neuro: COMMON NORMALS: oriented x3 SENSORIUM/ORIENTATION: Yes alert, Yes oriented to person and Yes oriented to place MENINGEAL SIGNS: Yes no meningeal signs Psych: APPEARANCE: Yes well kempt Skin: COMMON NORMALS: no rashes or lesions noted and skin turgor normal GENERAL SKIN EXAM: no rashes or lesions noted and turgor normal Course ED course: Reviewed with Dr. Ambriz patient signed off he will complete work-up and disposition Vital Signs: Vital signs: Vital Signs Temperature 98.7 F 07/01/19 07:35 Pulse Rate 88 07/01/19 07:35 Respiratory Rate 18 07/01/19 07:35 Blood Pressure 144/88 07/01/19 07:35 Pulse Oximetry 91 07/01/19 07:35 MDM - Chest Pain Lab Data: Labs: Lab Results 06/30/19 06/30/19 06/30/19 Range/Units 15:48 15:48 15:48 WBC 6.5 (4.0-10.0) 10^3/ uL RBC 2.85 L (4.1-5.3) 10^6/u L Hgb 9.3 L (11.5-15.3) g/dL Hct 28.8 L (37.0-47.0) % MCV 101.1 H (81-99) fL MCH 32.6 (28.0-34.0) pg MCHC 32.3 (30.0-36.0) g/dL RDW 13.6 (12.1-15.1) % Plt Count 229 (130-400) 10^3/c mm MPV 11.4 H (7.4-10.4) fL Neut % (Auto) 60.7 % Lymph % (Auto) 28.2 % [place] % (Auto) 6.2 % Eos % (Auto) 3.7 % Baso % (Auto) 0.6 % Neut # (Auto) 3.9 (1.8-7.7) 10^3/u L Lymph # (Auto) 1.8 (0.8-4.8) 10^3/u L [place] # (Auto) 0.4 (0.2-0.9) 10^3/u L Eos # (Auto) 0.2 (0.0-0.8) 10^3/u L Baso # (Auto) 0.0 (0.0-0.1) 10^3/u L Nucleated RBC % (a uto) 0 % Nucleated RBCs # 0.0 /100WBC Specimen Type Sample Site ABG pH (7.35-7.45) ABG pCO2 (35-45) mmHg ABG pO2 (80.0-100.0) mmH g ABG HCO3 (22-26) mmol/L ABG O2 Saturation ABG Base Excess (-2.0-2.0) mmol/ L Jason Test A-a O2 Gradient (5-10) mmHg Hematocrit (37-47) % Hgb O2 Saturation (95-100) % Carboxyhemoglobin (0.4-20.1) %THgb Methemoglobin (0.4-1.5) % Total Hemoglobin (12-16) g/dL Ionized Calcium (1.1-1.4) mmol/L O2 Delivery Device Document Control Manager ID Sodium 134 L (136-145) mmol/L Potassium 3.8 (3.5-5.1) mmol/L Chloride 92 L (98-107) mmol/L Carbon Dioxide 24 (22-29) mmol/L Anion Gap 21.8 H (5-19) BUN 31 H (6-20) mg/dL Creatinine 7.8 H* (0.5-0.9) mg/dL GFR Calculation 5.4 L (90-130) mL/min Glucose 210 H (74-109) mg/dL Lactate (0.5-2.2) mmol/L Calcium 9.8 (8.5-10.5) mg/dL Total Bilirubin 0.3 (0.15-1.2) mg/dL AST 16 (0-32) U/L ALT 16 (0-33) U/L Alkaline Phosphata se 104 (35-105) IU/L Troponin T Baselin e 169 H* (0-10) ng/mL Troponin T 120 Min [place] (0-10) ng/mL Delta Troponin T (0-10) ABS# Total Protein 7.3 (6.6-8.7) g/dL Albumin 2.9 L (3.5-5.2) g/dL Globulin 4.4 (1.3-4.6) g/dL TSH (0.27-4.20) uIU/ mL 06/30/19 06/30/19 06/30/19 Range/Units 15:48 17:21 18:00 WBC (4.0-10.0) 10^3/ uL RBC (4.1-5.3) 10^6/u L Hgb (11.5-15.3) g/dL Hct (37.0-47.0) % MCV (81-99) fL MCH (28.0-34.0) pg MCHC (30.0-36.0) g/dL RDW (12.1-15.1) % Plt Count (130-400) 10^3/c mm MPV (7.4-10.4) fL Neut % (Auto) % Lymph % (Auto) % [place] % (Auto) % Eos % (Auto) % Baso % (Auto) % Neut # (Auto) (1.8-7.7) 10^3/u L Lymph # (Auto) (0.8-4.8) 10^3/u L [place] # (Auto) (0.2-0.9) 10^3/u L Eos # (Auto) (0.0-0.8) 10^3/u L Baso # (Auto) (0.0-0.1) 10^3/u L Nucleated RBC % (a uto) % Nucleated RBCs # /100WBC Specimen Type Arterial Sample Site Brachial, right ABG pH 7.48 H (7.35-7.45) ABG pCO2 34.0 L (35-45) mmHg ABG pO2 73.3 L (80.0-100.0) mmH g ABG HCO3 25.3 (22-26) mmol/L ABG O2 Saturation 96.1 ABG Base Excess 1.9 (-2.0-2.0) mmol/ L Jason Test Pos A-a O2 Gradient 32.3 H (5-10) mmHg Hematocrit 29.2 L (37-47) % Hgb O2 Saturation 94.8 L (95-100) % Carboxyhemoglobin 0.9 (0.4-20.1) %THgb Methemoglobin 0.4 (0.4-1.5) % Total Hemoglobin 9.5 L (12-16) g/dL Ionized Calcium 1.2 (1.1-1.4) mmol/L O2 Delivery Device Room air Document Control Manager ID monro Sodium 137.0 (136-145) mmol/L Potassium 3.5 (3.5-5.1) mmol/L Chloride (98-107) mmol/L Carbon Dioxide (22-29) mmol/L Anion Gap (5-19) BUN (6-20) mg/dL Creatinine (0.5-0.9) mg/dL GFR Calculation (90-130) mL/min Glucose 153.0 H (74-109) mg/dL Lactate (0.5-2.2) mmol/L Calcium (8.5-10.5) mg/dL Total Bilirubin (0.15-1.2) mg/dL AST (0-32) U/L ALT (0-33) U/L Alkaline Phosphata se (35-105) IU/L Troponin T Baselin e (0-10) ng/mL Troponin T 120 Min [place] 164.40 H (0-10) ng/mL Delta Troponin T -4.60 L (0-10) ABS# Total Protein (6.6-8.7) g/dL Albumin (3.5-5.2) g/dL Globulin (1.3-4.6) g/dL TSH 1.21 (0.27-4.20) uIU/ mL 06/30/19 Range/Units 20:12 WBC (4.0-10.0) 10^3/ uL RBC (4.1-5.3) 10^6/u L Hgb (11.5-15.3) g/dL Hct (37.0-47.0) % MCV (81-99) fL MCH (28.0-34.0) pg MCHC (30.0-36.0) g/dL RDW (12.1-15.1) % Plt Count (130-400) 10^3/c mm MPV (7.4-10.4) fL Neut % (Auto) % Lymph % (Auto) % [place] % (Auto) % Eos % (Auto) % Baso % (Auto) % Neut # (Auto) (1.8-7.7) 10^3/u L Lymph # (Auto) (0.8-4.8) 10^3/u L [place] # (Auto) (0.2-0.9) 10^3/u L Eos # (Auto) (0.0-0.8) 10^3/u L Baso # (Auto) (0.0-0.1) 10^3/u L Nucleated RBC % (a uto) % Nucleated RBCs # /100WBC Specimen Type Sample Site ABG pH (7.35-7.45) ABG pCO2 (35-45) mmHg ABG pO2 (80.0-100.0) mmH g ABG HCO3 (22-26) mmol/L ABG O2 Saturation ABG Base Excess (-2.0-2.0) mmol/ L Jason Test A-a O2 Gradient (5-10) mmHg Hematocrit (37-47) % Hgb O2 Saturation (95-100) % Carboxyhemoglobin (0.4-20.1) %THgb Methemoglobin (0.4-1.5) % Total Hemoglobin (12-16) g/dL Ionized Calcium (1.1-1.4) mmol/L O2 Delivery Device Document Control Manager ID Sodium (136-145) mmol/L Potassium (3.5-5.1) mmol/L Chloride (98-107) mmol/L Carbon Dioxide (22-29) mmol/L Anion Gap (5-19) BUN (6-20) mg/dL Creatinine (0.5-0.9) mg/dL GFR Calculation (90-130) mL/min Glucose (74-109) mg/dL Lactate 2.2 (0.5-2.2) mmol/L Calcium (8.5-10.5) mg/dL Total Bilirubin (0.15-1.2) mg/dL AST (0-32) U/L ALT (0-33) U/L Alkaline Phosphata se (35-105) IU/L Troponin T Baselin e (0-10) ng/mL Troponin T 120 Min [place] (0-10) ng/mL Delta Troponin T (0-10) ABS# Total Protein (6.6-8.7) g/dL Albumin (3.5-5.2) g/dL Globulin (1.3-4.6) g/dL TSH (0.27-4.20) uIU/ mL Discharge Plan Discharge Patient Disposition: Admitted As Inpatient Admit Provider: Daksha Burdick Condition: Stable Discharge Date/Time: 06/30/19 23:03 Sign Out Sign Out Data: Patient Sign Out occurred on 06/30/19 at 18:18. Patient's care was discussed, and care was transferred from Karan Daniels DO to Wayne Ambriz DO. Sign Out Comment: Second troponin rule out CO Last updated by Karan Daniels DO at 06/30/19 18:14 Coding Level of Care Code ED Horticultural Services Supervisor for Chg Fwd Exam Problem Focused Documented by User: Wayne Ambriz DO 06/30/19 21:22 HPI - Chest Pain General: Chief Complaint: Chest Pain Stated Complaint: CHEST PAIN Time Seen by Provider: 06/30/19 15:26 PFSH ED PFSH: Statuses (acute, chronic, etc) shown below reflect problem list status as previously entered and may not be historically accurate Medical History Anxiety (Acute) Cholecystitis (Acute) Chronic diastolic CHF (congestive heart failure) (Acute) Depression (Acute) Diabetes (Acute) Insulin-dependent Gastroparesis (Acute) Gastroparesis (Acute) GERD (gastroesophageal reflux disease) (Acute) History of left heart catheterization (Acute) HTN (hypertension) (Acute) Hyperlipidemia (Acute) Hypothyroidism (Acute) Myocardial infarction (Acute) Peripheral vascular disease (Acute) Peritoneal dialysis catheter in place (Acute) Renal failure (Acute) TIA (transient ischemic attack) (Acute) Surgical History History of appendectomy (Acute) History of heart artery stent (Acute) History of hysterectomy (Acute) History of right below knee amputation (Acute) Family History (Updated 06/30/19 @ 20:39 by Daksha Burdick MD) Denies family history of CAD (coronary artery disease) Clotting disorder Dementia Bleeding disorder Social History Smoking and tobacco status: never smoked Alcohol intake: never Household members: spouse and family Course ED course: 54-year-old lady checked out to me by Dr. Santana. This patient has a history of coronary disease with a stent placed last October. She also has chronic renal failure and is on peritoneal dialysis at home. She presented to wound care earlier today complaining of chest discomfort. She was found to be hypotensive, and sent here. She remains hypotensive here. Her blood pressures been in the 80s over 40s despite fluid bolusing. She has no evidence of acute infection or sepsis. She does not appear to be in cardiogenic shock. She is non-tachycardic. Her delta troponin was negative. Her EKG showed no acute ST changes. Her chest pain is only been intermittent. She will be admitted for chest discomfort with hypotension. She has been given stress dose steroids here as well as Midrin to try to increase her pressure a bit. we will continue fluids, with caution due to the renal failure Vital Signs: Vital signs: Vital Signs Temperature 98.7 F 07/01/19 07:35 Pulse Rate 88 07/01/19 07:35 Respiratory Rate 18 07/01/19 07:35 Blood Pressure 144/88 07/01/19 07:35 Pulse Oximetry 91 07/01/19 07:35 MDM - Chest Pain Lab Data: Labs: Lab Results 06/30/19 06/30/19 06/30/19 Range/Units 15:48 15:48 15:48 WBC 6.5 (4.0-10.0) 10^3/ uL RBC 2.85 L (4.1-5.3) 10^6/u L Hgb 9.3 L (11.5-15.3) g/dL Hct 28.8 L (37.0-47.0) % MCV 101.1 H (81-99) fL MCH 32.6 (28.0-34.0) pg MCHC 32.3 (30.0-36.0) g/dL RDW 13.6 (12.1-15.1) % Plt Count 229 (130-400) 10^3/c mm MPV 11.4 H (7.4-10.4) fL Neut % (Auto) 60.7 % Lymph % (Auto) 28.2 % [place] % (Auto) 6.2 % Eos % (Auto) 3.7 % Baso % (Auto) 0.6 % Neut # (Auto) 3.9 (1.8-7.7) 10^3/u L Lymph # (Auto) 1.8 (0.8-4.8) 10^3/u L [place] # (Auto) 0.4 (0.2-0.9) 10^3/u L Eos # (Auto) 0.2 (0.0-0.8) 10^3/u L Baso # (Auto) 0.0 (0.0-0.1) 10^3/u L Nucleated RBC % (a uto) 0 % Nucleated RBCs # 0.0 /100WBC Specimen Type Sample Site ABG pH (7.35-7.45) ABG pCO2 (35-45) mmHg ABG pO2 (80.0-100.0) mmH g ABG HCO3 (22-26) mmol/L ABG O2 Saturation ABG Base Excess (-2.0-2.0) mmol/ L Jason Test A-a O2 Gradient (5-10) mmHg Hematocrit (37-47) % Hgb O2 Saturation (95-100) % Carboxyhemoglobin (0.4-20.1) %THgb Methemoglobin (0.4-1.5) % Total Hemoglobin (12-16) g/dL Ionized Calcium (1.1-1.4) mmol/L O2 Delivery Device Document Control Manager ID Sodium 134 L (136-145) mmol/L Potassium 3.8 (3.5-5.1) mmol/L Chloride 92 L (98-107) mmol/L Carbon Dioxide 24 (22-29) mmol/L Anion Gap 21.8 H (5-19) BUN 31 H (6-20) mg/dL Creatinine 7.8 H* (0.5-0.9) mg/dL GFR Calculation 5.4 L (90-130) mL/min Glucose 210 H (74-109) mg/dL Lactate (0.5-2.2) mmol/L Calcium 9.8 (8.5-10.5) mg/dL Total Bilirubin 0.3 (0.15-1.2) mg/dL AST 16 (0-32) U/L ALT 16 (0-33) U/L Alkaline Phosphata se 104 (35-105) IU/L Troponin T Baselin e 169 H* (0-10) ng/mL Troponin T 120 Min [place] (0-10) ng/mL Delta Troponin T (0-10) ABS# Total Protein 7.3 (6.6-8.7) g/dL Albumin 2.9 L (3.5-5.2) g/dL Globulin 4.4 (1.3-4.6) g/dL TSH (0.27-4.20) uIU/ mL 06/30/19 06/30/19 06/30/19 Range/Units 15:48 17:21 18:00 WBC (4.0-10.0) 10^3/ uL RBC (4.1-5.3) 10^6/u L Hgb (11.5-15.3) g/dL Hct (37.0-47.0) % MCV (81-99) fL MCH (28.0-34.0) pg MCHC (30.0-36.0) g/dL RDW (12.1-15.1) % Plt Count (130-400) 10^3/c mm MPV (7.4-10.4) fL Neut % (Auto) % Lymph % (Auto) % [place] % (Auto) % Eos % (Auto) % Baso % (Auto) % Neut # (Auto) (1.8-7.7) 10^3/u L Lymph # (Auto) (0.8-4.8) 10^3/u L [place] # (Auto) (0.2-0.9) 10^3/u L Eos # (Auto) (0.0-0.8) 10^3/u L Baso # (Auto) (0.0-0.1) 10^3/u L Nucleated RBC % (a uto) % Nucleated RBCs # /100WBC Specimen Type Arterial Sample Site Brachial, right ABG pH 7.48 H (7.35-7.45) ABG pCO2 34.0 L (35-45) mmHg ABG pO2 73.3 L (80.0-100.0) mmH g ABG HCO3 25.3 (22-26) mmol/L ABG O2 Saturation 96.1 ABG Base Excess 1.9 (-2.0-2.0) mmol/ L Jason Test Pos A-a O2 Gradient 32.3 H (5-10) mmHg Hematocrit 29.2 L (37-47) % Hgb O2 Saturation 94.8 L (95-100) % Carboxyhemoglobin 0.9 (0.4-20.1) %THgb Methemoglobin 0.4 (0.4-1.5) % Total Hemoglobin 9.5 L (12-16) g/dL Ionized Calcium 1.2 (1.1-1.4) mmol/L O2 Delivery Device Room air Document Control Manager ID monro Sodium 137.0 (136-145) mmol/L Potassium 3.5 (3.5-5.1) mmol/L Chloride (98-107) mmol/L Carbon Dioxide (22-29) mmol/L Anion Gap (5-19) BUN (6-20) mg/dL Creatinine (0.5-0.9) mg/dL GFR Calculation (90-130) mL/min Glucose 153.0 H (74-109) mg/dL Lactate (0.5-2.2) mmol/L Calcium (8.5-10.5) mg/dL Total Bilirubin (0.15-1.2) mg/dL AST (0-32) U/L ALT (0-33) U/L Alkaline Phosphata se (35-105) IU/L Troponin T Baselin e (0-10) ng/mL Troponin T 120 Min [place] 164.40 H (0-10) ng/mL Delta Troponin T -4.60 L (0-10) ABS# Total Protein (6.6-8.7) g/dL Albumin (3.5-5.2) g/dL Globulin (1.3-4.6) g/dL TSH 1.21 (0.27-4.20) uIU/ mL 06/30/19 Range/Units 20:12 WBC (4.0-10.0) 10^3/ uL RBC (4.1-5.3) 10^6/u L Hgb (11.5-15.3) g/dL Hct (37.0-47.0) % MCV (81-99) fL MCH (28.0-34.0) pg MCHC (30.0-36.0) g/dL RDW (12.1-15.1) % Plt Count (130-400) 10^3/c mm MPV (7.4-10.4) fL Neut % (Auto) % Lymph % (Auto) % [place] % (Auto) % Eos % (Auto) % Baso % (Auto) % Neut # (Auto) (1.8-7.7) 10^3/u L Lymph # (Auto) (0.8-4.8) 10^3/u L [place] # (Auto) (0.2-0.9) 10^3/u L Eos # (Auto) (0.0-0.8) 10^3/u L Baso # (Auto) (0.0-0.1) 10^3/u L Nucleated RBC % (a uto) % Nucleated RBCs # /100WBC Specimen Type Sample Site ABG pH (7.35-7.45) ABG pCO2 (35-45) mmHg ABG pO2 (80.0-100.0) mmH g ABG HCO3 (22-26) mmol/L ABG O2 Saturation ABG Base Excess (-2.0-2.0) mmol/ L Jason Test A-a O2 Gradient (5-10) mmHg Hematocrit (37-47) % Hgb O2 Saturation (95-100) % Carboxyhemoglobin (0.4-20.1) %THgb Methemoglobin (0.4-1.5) % Total Hemoglobin (12-16) g/dL Ionized Calcium (1.1-1.4) mmol/L O2 Delivery Device Document Control Manager ID Sodium (136-145) mmol/L Potassium (3.5-5.1) mmol/L Chloride (98-107) mmol/L Carbon Dioxide (22-29) mmol/L Anion Gap (5-19) BUN (6-20) mg/dL Creatinine (0.5-0.9) mg/dL GFR Calculation (90-130) mL/min Glucose (74-109) mg/dL Lactate 2.2 (0.5-2.2) mmol/L Calcium (8.5-10.5) mg/dL Total Bilirubin (0.15-1.2) mg/dL AST (0-32) U/L ALT (0-33) U/L Alkaline Phosphata se (35-105) IU/L Troponin T Baselin e (0-10) ng/mL Troponin T 120 Min [place] (0-10) ng/mL Delta Troponin T (0-10) ABS# Total Protein (6.6-8.7) g/dL Albumin (3.5-5.2) g/dL Globulin (1.3-4.6) g/dL TSH (0.27-4.20) uIU/ mL Discharge Plan Discharge Patient Disposition: Admitted As Inpatient Admit Provider: Daksha Burdick Condition: Stable Discharge Date/Time: 06/30/19 23:03 Sign Out Sign Out Data: Patient Sign Out occurred on 06/30/19 at 18:18. Patient's care was discussed, and care was transferred from Karan Daniels DO to Wayne Ambriz DO. Sign Out Comment: Second troponin rule out CO Last updated by Karan Daniels DO at 06/30/19 18:14 Coding Level of Care Code ED Horticultural Services Supervisor for Chg Fwd Exam Problem Focused The documentation recorded by the Clifford bernal Kialy, accurately reflects the service I personally performed and the decisions made by Frances begum Curtis L, DO Jun 30, 2019 15:15
--- NOTE | 2019-06-30 15:28 | ECG_ITS ---
Measurements Intervals [place] Rate: 64 P: -33 VA: 174 QRS: -27 QRSD: 89 T: 60 QT: 385 QTc: 399 SINUS RHYTHM LOW QRS VOLTAGE IN PRECORDIAL LEADS [QRS DEFLECTION < 1.0 mV IN CHEST LEADS] POSSIBLE ANTERIOR MYOCARDIAL INFARCTION , PROBABLY OLD [30 ms Q WAVE IN V3/V4, OR R < 0.2 mV IN V4] POSSIBLE INFERIOR MYOCARDIAL INFARCTION , PROBABLY OLD [30 ms Q WAVE IN II/aVF] Compared to ECG 06/25/2019 23:30:01 Low QRS voltage now present Junctional rhythm no longer present Left-axis deviation no longer present Myocardial infarct finding still present Electronically Signed On 07-01-2019 18:02:02 PRODUCE INSPECTOR by Daksha Delcid M.D. [email or web address]
--- NOTE | 2019-06-30 15:28 | XRR_ITS ---
PROCEDURE INFORMATION: Exam: XR Chest, 1 View Exam date and time: 06/30/2019 3:41 PM Age: 54 years old Clinical indication: Cough and shortness of breath; Chest pain; Additional info: Chest pain, cough, SOB TECHNIQUE: Imaging protocol: XR of the chest Views: 1 view. COMPARISON: CR (CHEST, ) 06/25/2019 4:15 PM FINDINGS: Lungs: Atelectasis is seen in the right lower lobe the lungs are otherwise clear. Pleural space: Elevation of the right hemidiaphragm is seen. No pleural effusion. No pneumothorax. Heart/Mediastinum: Unremarkable. No cardiomegaly. Bones/joints: Unremarkable. XR/XR chest 1V portable [id number] IMPRESSION: No acute findings.
[2019-06-30 16:16] LABS: Basophils % 0.6 %; Eosinophils # 0.2 10^3/uL (0.0-0.8); Eosinophils % 3.7 %; Hematocrit 28.8 % (37.0-47.0); Hemoglobin 9.3 g/dL (11.5-15.3); Lymphocytes # 1.8 10^3/uL (0.8-4.8); Lymphocytes % 28.2 %; Mean Corpuscular HGB Conc 32.3 g/dL (30.0-36.0); Mean Corpuscular Hemoglobin 32.6 pg (28.0-34.0); Mean Corpuscular Volume 101.1 fL (81-99); Mean Platelet Volume 11.4 fL (7.4-10.4); Monocytes # 0.4 10^3/uL (0.2-0.9); Monocytes % 6.2 %; Neutrophils # 3.9 10^3/uL (1.8-7.7); Neutrophils % 60.7 %; Nucleated Red Blood Cells % 0 %; Platelet Count 229 10^3/cmm (130-400); Red Blood Count 2.85 10^6/uL (4.1-5.3); Red Cell Distribution Width 13.6 % (12.1-15.1); White Blood Count 6.5 10^3/uL (4.0-10.0)
[2019-06-30 16:42] LABS: Alanine Aminotransferase 16 U/L (0-33); Albumin Level 2.9 g/dL (3.5-5.2); Alkaline Phosphatase 104 IU/L (35-105); Anion Gap 21.8 (5-19); Aspartate Amino Transferase 16 U/L (0-32); Blood Urea Nitrogen 31 mg/dL (6-20); Calcium 9.8 mg/dL (8.5-10.5); Carbon Dioxide 24 mmol/L (22-29); Chloride 92 mmol/L (98-107); Globulin 4.4 g/dL (1.3-4.6); Glomerular Filtration Rate 5.4 mL/min (90-130); Glucose 210 mg/dL (74-109); Potassium 3.8 mmol/L (3.5-5.1); Sodium 134 mmol/L (136-145); Total Bilirubin 0.3 mg/dL (0.15-1.2); Total Protein 7.3 g/dL (6.6-8.7)
[2019-06-30 16:59] LABS: Troponin(5th) Baseline 169 ng/mL (0-10)
[2019-06-30] MEDS: sodium chloride 0.9% 1,000 ML 999 ML IV ×2 (17:20→19:52)
--- NOTE | 2019-06-30 17:28 | ECG_ITS ---
Measurements Intervals [place] Rate: 66 P: -33 DE: 177 QRS: -30 QRSD: 81 T: -1 QT: 378 QTc: 396 SINUS RHYTHM LOW QRS VOLTAGE [QRS DEFLECTION < 0.5/1.0 mV IN LIMB/CHEST LEADS] POSSIBLE ANTERIOR MYOCARDIAL INFARCTION , PROBABLY OLD [30 ms Q WAVE IN V3/V4, OR R < 0.2 mV IN V4] INFERIOR MYOCARDIAL INFARCTION , PROBABLY OLD [40+ ms Q WAVE AND/OR ST/T ABNORMALITY IN II/aVF] Compared to ECG 06/25/2019 23:30:01 Low QRS voltage now present Junctional rhythm no longer present Left-axis deviation no longer present Myocardial infarct finding still present Electronically Signed On 07-01-2019 18:02:36 ACCOUNT ENGINEER by Daksha Delcid M.[email or web address]
[2019-06-30 17:34] LABS: ABG PH Result 7.48 (7.35-7.45); Alveolar-Arterial Oxygen Gradi 32.3 mmHg (5-10); Arterial Blood Gas Hematocrit 29.2 % (37-47); Base Excess ABG 1.9 mmol/L (-2.0-2.0); Blood Gas Allen Test Pos; Blood Gas Sample Site Brachial, right; Blood Gas Sample Type Arterial; Carboxyhemoglobin 0.9 %THgb (0.4-20.1); HCO3 ABG 25.3 mmol/L (22-26); HGB O2 Sat 94.8 % (95-100); Ionized Calcium Level - ABG 1.2 mmol/L (1.1-1.4); Methemoglobin 0.4 % (0.4-1.5); Oxygen Device ROOM AIR; Oxygen Saturation ABG 96.1; PO2 ABG 73.3 mmHg (80.0-100.0); Potassium Level - ABG 3.5 mmol/L (3.5-5.0); Total Hemoglobin 9.5 g/dL (12-16)
[2019-06-30 20:32] LABS: Lactate (Lactic Acid level) 2.2 mmol/L (0.5-2.2)
--- NOTE | 2019-06-30 20:39 | PM.HP ---
Providers/Chief Complaint Primary Care Provider: Yovany Leonardo MD Chief Complaint: CHEST PAIN History of Present Illness Rizwana Herzog is a 54 year old female who carries diagnosis of end-stage renal disease, peritoneal dialysis catheter in place, diabetic with peripheral vascular disease status post right BKA currently waiting for an angiogram for her left chronic leg wound came in after experiencing chest discomfort. Patient was recently discharged from the hospital after work-up for her nausea and vomiting, her work-up did not show any acute pathologies, her symptoms has been resolved, patient is stating that at baseline she is wheelchair-bound, she was fine after her recent discharge from the hospital, she went to wound care clinic today and was not feeling well, her blood pressure was checked which was systolic 60, at that time she started having some chest discomfort which was radiating towards her left shoulder, it was pressure-like in sensation, it stayed for at least 20 minutes and got relieved with GI cocktail as per the patient. She did not experience any shortness of breath, nausea vomiting, palpitations. She has not experienced recent flulike symptoms, runny nose, runny eyes, she makes small amount of urine, she is having regular bowel movements, she uses peritoneal dialysis catheter every night, she is not sure how much filtration takes place overnight but she relies on the peritoneal dialysis processing overnight. Her resource management specialist is in [place], she is waiting for an angiogram scheduled this Wednesday in [place] as well Diagnostics in ER showed systolic blood pressure in 70s, heart rate 60s, patient was chest pain-free, She was not in any distress, I requested ER physician to give 1 dose of Midrin and stress dose steroids she was getting third liter of normal saline, when I was examining her her systolic blood pressure was 84/55, EKG showed T wave inversions in anterolateral leads which are not new I have compared her EKG with the previous one, troponins are 169 with negative delta at 120 minutes, previously her troponin was 170 when she presented with nausea and vomiting. Review of Systems Const: Reports: body aches, fatigue and malaise Eyes: Denies: change in vision ENMT: Denies: throat pain Card: Reports: chest pain, swelling of feet/ankles and lightheadedness; Denies: palpitations, irregular heart rhythm or shortness of breath when lying down Resp: Denies: shortness of breath GI: Denies: abdominal pain, nausea or vomiting : Denies: flank pain Musc: Denies: neck pain Skin/Breast: Reports: chronic lesion; Denies: rash Neuro: Denies: headache Psych: Reports: anxiety Endo: Denies: excessive urination Refugio/Lymph: Denies: easy bruising All/Imm: Denies: hives Medications/Allergies Home Medications Medication Instructions Recorded Confirmed Last Taken Type bumetanide 1 mg PO BID 06/30/19 06/30/19 06/30/19 History multivitamin [Multiple Vitamins] 1 tab PO DAILY 06/30/19 06/30/19 06/29/19 History paricalcitol [Zemplar] See Rx Instructions .ROUTE .COMPLEX 06/30/19 06/30/19 Unknown History sulfamethoxazole-trimethoprim 1 tab PO BID 06/30/19 06/30/19 06/30/19 History [Bactrim DS] Allergies Allergy/AdvReac Type Severity Reaction Status Date / Time metformin [From Glucophage] Allergy Unknown Verified 06/30/19 16:44 venlafaxine [From Effexor] Allergy ADR-Shakine Verified 06/30/19 16:44 ss PFSH Acute PFSH: Statuses (acute, chronic, etc) shown below reflect problem list status as previously entered and may not be historically accurate Medical History Anxiety (Acute) Cholecystitis (Acute) Chronic diastolic CHF (congestive heart failure) (Acute) Depression (Acute) Diabetes (Acute) Insulin-dependent Gastroparesis (Acute) Gastroparesis (Acute) GERD (gastroesophageal reflux disease) (Acute) History of left heart catheterization (Acute) HTN (hypertension) (Acute) Hyperlipidemia (Acute) Hypothyroidism (Acute) Myocardial infarction (Acute) Peripheral vascular disease (Acute) Peritoneal dialysis catheter in place (Acute) Renal failure (Acute) TIA (transient ischemic attack) (Acute) Surgical History History of appendectomy (Acute) History of heart artery stent (Acute) History of hysterectomy (Acute) History of right below knee amputation (Acute) Family History (Updated 06/30/19 @ 20:39 by Daksha Burdick MD) Denies family history of CAD (coronary artery disease) Clotting disorder Dementia Bleeding disorder Social History Smoking and tobacco status: never smoked Alcohol intake: never Household members: spouse and family Vitals/I&O/Wt Last Vital Signs Temp 98.0 F 06/30/19 15:15 Pulse 67 06/30/19 15:15 Resp 16 06/30/19 15:15 BP 96/64 06/30/19 15:15 Pulse Ox 97 06/30/19 15:15 Weight last 48 hrs Weight 94.347 kg Physical Exam Narrative: EXAM NARRATIVE: Morbidly obese female lying comfortable in her bed Patient is laying supine without any shortness of breath or chest pain S1-S2 with a systolic murmur left second intercostal space 2/6, hard to assess her JVD, she has peripheral edema, has reproducible chest discomfort in midsternal area Right BKA Left leg has a weightbearing cast which I have not removed she has recently seen wound care clinic for her chronic venous stasis ulcer Clear lungs are clear to auscultation without adventitious sounds She is saturating well on room air Abdomen soft, nontender nondistended, bloated, peritoneal dialysis catheter in place without any redness or leakage Neurological exam nonfocal EOMI, PERRLA Appropriate mood and affect She appears anxious Data : 06/30/19 15:48 06/30/19 15:48 A&P Assessment and plan (1) Hypotension: Status: Acute Code(s): I95.9 - Hypotension, unspecified (2) Elevated troponin: Status: Acute Code(s): R79.89 - Other specified abnormal findings of blood chemistry (3) Peripheral vascular disease: Status: Acute Code(s): I73.9 - Peripheral vascular disease, unspecified (4) Chronic renal failure: Status: Acute Qualifiers: Chronic kidney disease stage: unspecified stage Qualified Code(s): N18.9 - Chronic kidney disease, unspecified Code(s): N18.9 - Chronic kidney disease, unspecified (5) Peritoneal dialysis catheter in place: Status: Acute Code(s): Z99.2 - Dependence on renal dialysis Additional A&P Information Hypotension Her baseline systolic blood pressure ranges between 1 10-1 20mmhg, she takes Imdur and metoprolol succinate, She uses peritoneal dialysis every night Her blood pressure has improved after 3 L of normal saline and use of midodrine along stress dose steroids It seems multifactorial, no signs of cardiogenic shock, she is saturating well, no signs of current ischemia on EKG, less likely to be obstructive shock, no signs of sepsis, I believe this is secondary to hypovolemia from over filtration by peritoneal dialysis with underlying autonomic dysfunction due to poorly controlled diabetes She has hypotension without tachycardia, no recent spinal injury, she has back pain which she is attributing to sitting in a wheelchair, able to move her left extremity, no urinary or bowel incontinence, less likely to be spinal shock I would continue Midrin and stress dose steroid dose for at least 24 to 48 hours Hold metoprolol and Imdur Unstable angina She describes chest pain as substernal, pressure-like, lasted for 20 minutes But on my exam it was reproducible and she is endorsing that it improved with GI cocktail EKG shows T wave inversion anterolateral leads, she has a history of coronary artery disease with stent placement in October 2018 If she becomes symptomatic with consistent chest pain will alert cardiology team for an angiogram Her troponins are pretty much same as last time 2-hour delta is a negative range I would continue aspirin, Plavix, statins, hold beta-chyna and Imdur for now Respiratory alkalosis secondary to hyperventilation due to anxiety Peripheral vascular disease Awaiting angiogram on Wednesday at [place] For her venous stasis ulcer I would continue Bactrim for now She has been evaluated by wound care today DVT prophylaxis: Heparin GI prophylaxis: Protonix Patient is full code Attestations Medical Necessity Statement*: Anticipating her stay to cross more than 2 midnights because of hypotension, and unstable angina She might need cardiac evaluation if becomes symptomatic Time Spent in Patient Care: 55 Coding Level of Care Code Acute Flask Handler for Chg Fwd Diagnoses Hypotension I95.9 Elevated troponin R79.89 Peripheral vascular disease I73.9 Chronic renal failure N18.9 Chronic kidney disease stage: unspecified stage Peritoneal dialysis catheter in place Z99.2
[2019-06-30] MEDS: midodrine 5 mg TABLET 10 MG PO (21:24)
--- NOTE | 2019-06-30 21:28 | ECG_ITS ---
Measurements Intervals [place] Rate: 65 P: -27 MA: 181 QRS: -47 QRSD: 81 T: -11 QT: 378 QTc: 395 SINUS RHYTHM LEFT AXIS DEVIATION [QRS AXIS < -30] LOW QRS VOLTAGE IN EXTREMITY LEADS [QRS DEFLECTION < 0.5 mV IN LIMB LEADS] POSSIBLE ANTERIOR MYOCARDIAL INFARCTION , OF INDETERMINATE AGE [30 ms Q WAVE IN V3/V4, OR R < 0.2 mV IN V4] Compared to ECG 06/25/2019 23:30:01 Low QRS voltage now present Junctional rhythm no longer present Myocardial infarct finding still present Electronically Signed On 07-01-2019 18:02:15 REVENUE TAX SPECIALIST by Daksha Delcid M.D. [id number]
[2019-06-30] MEDS: hydrocortisone 100 mg/2 mL SDV IVP (21:30)
[2019-06-30 21:39] LABS: Troponin 5 6HR 166.2 ng/L (0-10); Troponin 5 6HR Delta -2.8 ng/L (0-12)
[2019-06-30 22:56] VITALS: BP 110/52
[2019-06-30 23:00] VITALS: BP 113/54; O2SAT 92
[2019-06-30 23:01] VITALS: BP 113/54; PULSE 69; RESP 18; O2SAT 99
[2019-06-30 23:20] VITALS: BP 121/66; PULSE 64; RESP 14; TEMP 36.9; O2SAT 90
[2019-06-30 23:30] VITALS: BP 121/66; PULSE 64; RESP 14; TEMP 36.9; O2SAT 90
[2019-07-01] VITALS (22 sets, daily range): BP systolic 98–171; BP diastolic 61–93; PULSE 67–100; RESP 15–30; TEMP 36.6–37.1; O2SAT 84–97
[2019-07-01 00:53] LABS: Glucose Point of Care 173 mg/dL (70-110)
[2019-07-01] MEDS: heparin 5,000 unit/mL INJ 1 mL 5000 UNIT SUBCUT ×3 (02:26→17:21)
[2019-07-01] MEDS: hydrocortisone 100 mg/2 mL SDV 50 MG IVP (02:26)
--- NOTE | 2019-07-01 02:38 | ECG_ITS ---
Measurements Intervals [place] Rate: 77 P: -35 MT: 181 QRS: -41 QRSD: 90 T: -30 QT: 370 QTc: 419 SINUS RHYTHM MARKED LEFT AXIS DEVIATION [QRS AXIS < -30] LOW QRS VOLTAGE [QRS DEFLECTION < 0.5/1.0 mV IN LIMB/CHEST LEADS] POSSIBLE ANTERIOR MYOCARDIAL INFARCTION [30 ms Q WAVE IN V3/V4, OR R < 0.2 mV IN V4], PROBABLY OLD INFERIOR MYOCARDIAL INFARCTION [40+ ms Q WAVE AND/OR ST/T ABNORMALITY IN II/aVF], OF INDETERMINATE AGE Compared to ECG 06/25/2019 23:30:01 Low QRS voltage now present Junctional rhythm no longer present Myocardial infarct finding still present Electronically Signed On 07-01-2019 18:03:03 EMPLOYMENT APPEALS EXAMINER by Daksha Delcid M.D. [id number]
[2019-07-01 02:52] LABS: Thyroid Stimulating Hormone 1.21 uIU/mL (0.27-4.20)
[2019-07-01 02:55] LABS: Troponin(5th) Baseline 151 ng/mL (0-10)
[2019-07-01] MEDS: ondansetron 2 mg/ML SDV 2 mL 4 MG IVP ×3 (05:11→17:21)
[2019-07-01] MEDS: LORazepam 0.5 mg Tablet 0.25 MG PO (05:11)
[2019-07-01 05:54] LABS: Basophils % 0.3 %; Eosinophils % 0.1 %; Hematocrit 29.8 % (37.0-47.0); Hemoglobin 9.6 g/dL (11.5-15.3); Lymphocytes # 1.2 10^3/uL (0.8-4.8); Lymphocytes % 13.4 %; Mean Corpuscular HGB Conc 32.2 g/dL (30.0-36.0); Mean Corpuscular Hemoglobin 32.1 pg (28.0-34.0); Mean Corpuscular Volume 99.7 fL (81-99); Mean Platelet Volume 11.6 fL (7.4-10.4); Monocytes # 0.2 10^3/uL (0.2-0.9); Monocytes % 1.7 %; Neutrophils # 7.3 10^3/uL (1.8-7.7); Neutrophils % 83.9 %; Nucleated Red Blood Cells % 0 %; Platelet Count 227 10^3/cmm (130-400); Red Blood Count 2.99 10^6/uL (4.1-5.3); Red Cell Distribution Width 13.6 % (12.1-15.1); White Blood Count 8.7 10^3/uL (4.0-10.0)
--- NOTE | 2019-07-01 05:56 | PC.NURSE ---
patient came to the floor from ER alert and oriented, with no complaint of pain or nausea. patient was hungry and ate. patient transfered self to bed with one assist.
--- NOTE | 2019-07-01 05:57 | PC.NURSE ---
patient complained of nausea a little after 04:30. i asked Dr. Burdick for an order of zofran and ativan for patients anxiety and nausea. got her a bucket and while awaiting med verification and after giving meds, patient vomited coke colored clear liquid with bits of her dinner still digested. patient resting with bucket near to hand.
[2019-07-01 06:17] LABS: Alanine Aminotransferase 17 U/L (0-33); Alkaline Phosphatase 107 IU/L (35-105); Anion Gap 21.2 (5-19); Aspartate Amino Transferase 18 U/L (0-32); Blood Urea Nitrogen 36 mg/dL (6-20); Calcium 9.6 mg/dL (8.5-10.5); Carbon Dioxide 23 mmol/L (22-29); Chloride 96 mmol/L (98-107); Glomerular Filtration Rate 5.3 mL/min (90-130); Glucose 263 mg/dL (74-109); Potassium 4.2 mmol/L (3.5-5.1); Sodium 136 mmol/L (136-145); Total Bilirubin 0.2 mg/dL (0.15-1.2)
[2019-07-01 08:12] LABS: Glucose Point of Care 247 mg/dL (70-110)
[2019-07-01 08:43] LABS: Troponin 5 6HR Delta 7.7 ng/L (0-12)
[2019-07-01 08:53] LABS: Troponin 5 6HR 158.7 ng/L (0-10)
[2019-07-01 11:44] LABS: Glucose Point of Care 226 mg/dL (70-110)
--- NOTE | 2019-07-01 12:25 | P.PN_ITS ---
Subjective Subjective: Interval history: Nauseated this morning. Abdominal pain, somewhat concentrated in the epigastrium. Had a bowel movement this morning. Vitals/I&O/Wt Last Vital Signs Temp 98.4 F 07/01/19 11:08 Pulse 87 07/01/19 11:22 Resp 20 H 07/01/19 11:08 BP 149/90 07/01/19 11:08 Pulse Ox 94 07/01/19 11:22 06/30/19 07/01/19 07/01/19 22:59 06:59 14:59 Intake Total 120 / 120 Balance 120 / 120 Weight last 48 hrs Weight 94.347 kg Physical Exam Const: COMMON NORMALS: no apparent distress and oriented x3 NUTRITIONAL APPEARANCE: obese OTHER: In moderate discomfort secondary to nausea. HENMT: COMMON NORMALS: oropharynx normal Neck/C-Spine: COMMON NORMALS: no JVD Resp: COMMON NORMALS: normal respiratory effort and clear to auscultation bilaterally AUSCULTATION: clear to auscultation bilaterally Cardio: COMMON NORMALS: no JVD, regular rhythm, S1 normal heart sound, S2 norm al heart sound and no murmurs RHYTHM: regular rhythm HEART SOUNDS: S1 normal and S2 normal GI: COMMON NORMALS: normal to inspection, nondistended, normoactive bowel sounds, soft to palpation and non-tender PALPATION: Yes soft Extremity: COMMON NORMALS: no joint enlargement and no pedal edema OTHER: Right BKA. Neuro: COMMON NORMALS: oriented x3 and moves all extremities Skin: COMMON NORMALS: no rashes or lesions noted GENERAL SKIN EXAM: no rashes or lesions noted Data : 07/01/19 04:46 07/01/19 04:46 A&P Assessment and plan (1) Nausea: Not entirely clear etiology at this time. She is on aspirin at home, possibly with aspirin induced gastritis, as she denies NSAID intake. Denies chronic steroid use. Will discontinue Solu-Medrol at this time. Continue PPI, will increase dose to twice daily. Assessment peritoneal dialysate for any signs of infection. On review of records from prior admission infection was ruled out at that time. Possible gastroparesis secondary to diabetes. May benefit from additional assessment once out of acute episode. Postcholecystectomy syndrome was considered during prior admission as well. Fat and fluid containing umbilical hernia noted on CT 06/25. Status: Acute Code(s): R11.0 - Nausea (2) Hypotension: Resolved with holding bumetanide, Imdur. IVF bolus. With nausea, vomiting, and also she does use a constrictive solution at home per schedule nephrology, may have had a component of hypovolemia. Solution has been switched to less concentrated here in the hospital. Status: Acute Code(s): I95.9 - Hypotension, unspecified (3) Elevated troponin: Somewhat persistently elevated troponin, better than prior admission, without significant delta. In the setting of ESRD. Last TTE in September 2018 with normal EF. Will assess limited TTE. May benefit at some point from additional risk stratification by stress testing. Currently denies any chest pain. Having some epigastric discomfort as part of abdominal discomfort, worse with palpation. Continue aspirin, Plavix, statin. PPI. Assess peritoneal fluid. Status: Acute Code(s): R79.89 - Other specified abnormal findings of blood chemistry (4) Peripheral vascular disease: Pending peripheral angiogram in [place] on Wednesday. Reported chronic venous stasis ulcer for which currently is on Bactrim. Continue follow-up with wound care after discharge. Status: Acute Code(s): I73.9 - Peripheral vascular disease, unspecified (5) Chronic renal failure: Appreciate nephrology recommendations regarding PD. Status: Acute Qualifiers: Chronic kidney disease stage: unspecified stage Qualified Code(s): N18.9 - Chronic kidney disease, unspecified Code(s): N18.9 - Chronic kidney disease, unspecified (6) Peritoneal dialysis catheter in place: Status: Acute Code(s): Z99.2 - Dependence on renal dialysis Additional A&P Information Respiratory alkalosis secondary to hyperventilation due to anxiety Attestations Medical Necessity Statement*: Continue admission to manage of nausea, vomiting, abdominal discomfort inside of renal dialysis, monitoring her blood pressure with recent hypotension. Coding Level of Care Code Acute Territory Sales Consultant for Chg Fwd Diagnoses Nausea R11.0 Hypotension I95.9 Elevated troponin R79.89 Peripheral vascular disease I73.9 Chronic renal failure N18.9 Chronic kidney disease stage: unspecified stage Peritoneal dialysis catheter in place Z99.2
[2019-07-01] MEDS: midodrine 5 mg TABLET 10 MG PO (12:48)
[2019-07-01] MEDS: Dianeal low Ca w/1.5% dex 2,000 mL Bag 2000 ML INTRAPERIT (14:13)
--- NOTE | 2019-07-01 15:08 | P.CONIM_ITS ---
Providers/Reason For Consult Consulting Physican/Specialty*: Ashleigh Scruggs DO, telenephrology Reason for Consult*: ESRD on peritoneal dialysis Attending Physician: Calvin Zamorano Primary Care Provider: Yovany Leonardo MD History of Present Illness History of Present Illness Rizwana Herzog is a 54 year old female presenting for evaluation of chest pain. Upon my visit, she denies chest pain or dyspnea. She has persistent nausea and vomiting, mild abdominal pain. Reports normal bowel movements. She reports compliance with peritoneal dialysis on cycler, all 2.5% with daytime dwell icodextrin. Scheduled for arteriogram on Wednesday for nonhealing leg ulcer. Has been taking b actrim. was hypotensive upon arrival to ER - received 3 liters NSS. Review of Systems Const: Reports: fatigue Card: Reports: chest pain (resolved) GI: Reports: abdominal pain, nausea and vomiting Meds/Allergies Home Medications and Allergies Home Medications Medication Instructions Recorded Confirmed Type aspirin 81 mg PO DAILY 06/25/19 06/30/19 History atorvastatin 40 mg PO DAILY 06/25/19 06/30/19 History clopidogrel 75 mg PO DAILY 06/25/19 06/30/19 History isosorbide mononitrate 30 mg PO DAILY 06/25/19 06/30/19 History levothyroxine 224 mcg PO DAILY 06/25/19 06/30/19 History metoprolol succinate 50 mg PO DAILY 06/25/19 06/30/19 History pantoprazole 40 mg PO DAILY 06/25/19 06/30/19 History bumetanide 1 mg PO BID 06/30/19 06/30/19 History levofloxacin 250 mg PO DAILY 06/30/19 06/30/19 History multivitamin [Multiple Vitamins] 1 tab PO DAILY 06/30/19 06/30/19 History paricalcitol [Zemplar] See Rx Instructions .ROUTE .COMPLEX 06/30/19 06/30/19 History paricalcitol [Zemplar] See Rx Instructions .ROUTE .COMPLEX 06/30/19 06/30/19 History sulfamethoxazole-trimethoprim 1 tab PO BID 06/30/19 06/30/19 History [Bactrim DS] Allergies Allergy/AdvReac Type Severity Reaction Status Date / Time metformin [From Glucophage] Allergy Unknown Verified 06/30/19 16:44 venlafaxine [From Effexor] Allergy ADR-Shakine Verified 06/30/19 16:44 ss Current Medications Current Medications Generic Name Dose Route Start Last Admin Trade Name Freq PRN Reason Stop Dose Admin Aspirin 81 mg 07/01/19 09:00 07/01/19 10:33 Aspirin Chewable PO Not Given DAILY [facility] Atorvastatin Calcium 40 mg 07/01/19 09:00 07/01/19 10:33 Lipitor PO Not Given DAILY [facility] Clopidogrel Bisulfate 75 mg 07/01/19 09:00 07/01/19 10:33 Plavix PO Not Given DAILY [facility] Heparin Sodium (Beef Lung) 5,000 unit 07/01/19 02:09 07/01/19 10:27 Heparin SUBCUT 5,000 unit Q8H JERSON Administration Insulin Aspart 0 unit 07/01/19 12:00 07/01/19 12:49 Novolog SUBCUT 6 unit WM&BEDTIME JERSON Administration Protocol Isosorbide Mononitrate 30 mg 07/01/19 09:00 07/01/19 10:33 Imdur PO Not Given DAILY [facility] Levothyroxine Sodium 224 mcg 07/01/19 09:00 07/01/19 10:33 Synthroid PO Not Given DAILY [facility] Midodrine 10 mg 07/01/19 09:00 07/01/19 12:48 Proamatine PO 10 mg TID JERSON Administration Ondansetron HCl 4 mg 07/01/19 04:44 07/01/19 11:05 Zofran IVP 4 mg Q6H PRN Administration NAUSEA AND VOMITING Peritoneal Dialysis Solution 2,000 ml 07/01/19 13:00 07/01/19 14:13 Dianeal Low Ca W/1.5% Dex INTRAPERIT 2,000 ml QID JERSON Administration Trimethoprim/Sulfamethoxazole 1 tab 07/01/19 09:00 07/01/19 10:34 Bactrim Ds PO Not Given BID [facility] Protocol PFSH Acute PFSH: Statuses (acute, chronic, etc) shown below reflect problem list status as previously entered and may not be historically accurate Medical History Anxiety (Acute) Cholecystitis (Acute) Chronic diastolic CHF (congestive heart failure) (Acute) Depression (Acute) Diabetes (Acute) Insulin-dependent Gastroparesis (Acute) Gastroparesis (Acute) GERD (gastroesophageal reflux disease) (Acute) History of left heart catheterization (Acute) HTN (hypertension) (Acute) Hyperlipidemia (Acute) Hypothyroidism (Acute) Myocardial infarction (Acute) Peripheral vascular disease (Acute) Peritoneal dialysis catheter in place (Acute) Renal failure (Acute) TIA (transient ischemic attack) (Acute) Surgical History History of appendectomy (Acute) History of heart artery stent (Acute) History of hysterectomy (Acute) History of right below knee amputation (Acute) Family History Denies family history of CAD (coronary artery disease) Clotting disorder Dementia Bleeding disorder Social History Smoking and tobacco status: never smoked Alcohol intake: never Household members: spouse and family Vitals/I&O/Wt Last Vital Signs Temp 98.4 F 07/01/19 11:08 Pulse 87 07/01/19 11:22 Resp 20 H 07/01/19 11:08 BP 149/90 07/01/19 11:08 Pulse Ox 94 07/01/19 11:22 07/01/19 07/01/19 07/01/19 06:59 14:59 22:59 Intake Total 120 / 120 Balance 120 / 120 Weight last 48 hrs Weight 94.347 kg Physical Exam Const: GENERAL APPEARANCE: cooperative NUTRITIONAL APPEARANCE: overweight ORIENTATION/CONSCIOUSNESS: Yes awake HENMT: COMMON NORMALS: normocephalic and head/scalp atraumatic HEAD & SCALP: normocephalic and atraumatic Eye: COMMON NORMALS: no scleral icterus Neck/C-Spine: COMMON NORMALS: no JVD Chest: CHEST: Yes symmetrical chest wall rise Resp: COMMON NORMALS: normal respiratory effort and clear to auscultation bilaterally AUSCULTATION: clear to auscultation bilaterally Cardio: COMMON NORMALS: no JVD and regular rhythm RHYTHM: regular rhythm GI: INSPECTION: Yes other (peritoneal dialysis catheter exit site without erythema or drainage) Extremity: NARRATIVE EXTREMITY EXAM: no edema A&P Additional A&P Information Impression: 1. ESRD on peritoneal dialysis - RN reports PD fluid clear 2. Persistent nausea and vomiting, etiology unclear 3. Anemia 4. lower extremity ulcer/peripheral vascular disease - scheduled for arteriogram [place] 5. Diabetes Recommendation: Resume PD all 1.5%. Send fluid for cell count and culture. Consider reimaging abdomen. Check iron studies, continue procrit. Consult Attestations Medical Necessity Statement: per primary service Coding Level of Care Code Acute Mandrel Maker for Maris Braden
[2019-07-01 15:54] LABS: Lipase 20 U/L (13-60)
[2019-07-01 16:13] LABS: Glucose Point of Care 310 mg/dL (70-110)
[2019-07-01 16:18] LABS: Body Fluid Polynuclear #Cells 0.001 10^3/uL; Body Fluid WBC 11 u/L; RBC, Body Fluid 0 10^3/uL (0-0)
--- NOTE | 2019-07-01 16:32 | PM.TDS ---
Transfer Summary Providers Date of Admission: 06/30/19 20:38 Date of Discharge: 07/01/19 Attending Provider at Admission: Daksha Burdick MD Attending Provider at Transfer: Calvin Zamorano Primary Care Provider: Yovany Leonardo MD Anticipated Date of Transfer: Anticipated date of transfer: 07/01/19 Receiving Facility & Provider: Receiving Provider: [] Receiving facility: [] Diagnoses at Discharge Discharge Diagnosis (1) Nausea: Status: Acute (2) Hypotension: Status: Acute (3) Elevated troponin: Status: Acute (4) Peripheral vascular disease: Status: Acute (5) Chronic renal failure: Status: Acute Qualifiers: Chronic kidney disease stage: unspecified stage Qualified Code(s): N18.9 - Chronic kidney disease, unspecified (6) Peritoneal dialysis catheter in place: Status: Acute Reason for Visit Reason for Visit: Reason For Visit: CHEST PAIN Hospital Course Hospital Course: 54-year-old lady with history of ESRD, on peritoneal dialysis which she does at home nightly, diabetes, CAD, peripheral vascular disease status post right BKA, with chronic ulceration thought to be secondary to venous stasis, pending additional vascular study in [place] next week, was recently admitted for assessment management of nausea, vomiting, abdominal pain at which time underwent fairly extensive work-up including fluid analysis from peritoneal dialysate, which did not reveal signs of infection, no malignancy was seen on cytology. She also underwent MRCP with concern for possible biliary pathology, although is status post cholecystectomy, with finding of fatty atrophy of the pancreas incidentally noted, small esophageal hiatal hernia, and otherwise all intrahepatic biliary ductal dilation with normal appearance. She was found to have urinary tract infection during the previous admission for which she received Rocephin in the hospital, and was discharged with every other day Levaquin. Due to persistent symptoms of nausea, vomiting, abdominal discomfort was referred for assessment by outpatient gastroenterology with her symptoms felt to be related perhaps to a number of conditions, including gastroparesis, postcholecystectomy syndrome. Concern was expressed whether or not she may have been compliant with her hemodialysis. She returned to the hospital on 06/30 evening, and on presentation reportedly assessed for chest discomfort radiating to her left shoulder lasting about 20 minutes, relieved by GI cocktail in ER. On presentation also noted to be hypotensive, blood pressure 84/55 for which she received IV fluid bolus, and her Imdur and metoprolol were held. Her blood pressures improved. Dialysate was maintained overnight due to concern for worsening of hypotension in case he was drained. Her EKG showed nonspecific changes with possibility of past NE with Q waves anteriorly and inferiorly. Troponin was found elevated, but persistently so, without significant delta. Level slightly lower compared to prior admission. Genber troponins [id number]. During assessment this morning she had again severe nausea, episodes of vomiting, unable to take food or drink. Denied any chest pain. Was having abdominal discomfort, focused in epigastric area, worse on palpation. Limited echocardiogram to assess for regional wall motion abnormality, pericardial effusion, etc. was ordered, she was continued on Levaquin which she took last time yesterday morning, Bactrim for lower extremity ulceration. Her case was discussed with nephrology. Her hypotension is thought perhaps combination of medications, but also with low oral intake, as well as concentrated dialysate perhaps leading to hypovolemia which would explain her good response to IV fluid on presentation. She was continued on midodrine. Her hypotension resolved. She remains afebrile, without leukocytosis. Lactic acid on presentation was 2.2. Dialysate was requested to be drained, with fluid analysis, Gram stain and culture requested to be sent. Pantoprazole was changed to twice daily. Follow-up lipase was requested and was found to be low. She was continued on aspirin, Plavix, statin. Beta-chyna was held due to initial hypotension. Unless there was persistence of chest pain, or additional abnormalities noted on echocardiogram plan was to follow-up with stress testing for additional risk stratification at some point once her nausea improves. Her dialysate was changed to lower concentration. She still has persistent nausea, with inability to take in food or drink. 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, with other prior admissions there, and possibility for assessment of perhaps by gastroenterology given return/persistence of her GI symptoms, transfer to [facility] was requested by patient, and she was kindly accepted for further evaluation care at [facility] in [place]. I have discussed her condition with Dr. Gómez who will be the accepting physician. Physical Exam Const: COMMON NORMALS: no apparent distress and oriented x3 NUTRITIONAL APPEARANCE: obese OTHER: In moderate discomfort secondary to nausea. HENMT: COMMON NORMALS: oropharynx normal Neck/C-Spine: COMMON NORMALS: no JVD Resp: COMMON NORMALS: normal respiratory effort and clear to auscultation bilaterally AUSCULTATION: clear to auscultation bilaterally Cardio: COMMON NORMALS: no JVD, regular rhythm, S1 normal heart sound, S2 normal heart sound and no murmurs RHYTHM: regular rhythm HEART SOUNDS: S1 normal and S2 normal GI: COMMON NORMALS: normal to inspection, nondistended, normoactive bowel sounds, soft to palpation and non-tender PALPATION: Yes soft Extremity: COMMON NORMALS: no joint enlargement and no pedal edema OTHER: Right BKA. Neuro: COMMON NORMALS: oriented x3 and moves all extremities Skin: COMMON NORMALS: no rashes or lesions noted GENERAL SKIN EXAM: no rashes or lesions noted TS Data Data Completed and Pending: Completed Studies During Hospitalization Category Date Time Status XR chest 1V sandra ble [id number] Stat Exams 06/30/19 15:28 Completed Pending at discharge Category Date Time Status BMP [Basic [employer] lic Panel] Routine Lab 07/02/19 07:00 Ordered Body Fluid Analys is Routine Lab 07/01/19 13:05 Results Body Fluid Cultur e & GS Routine Lab 07/01/19 13:05 Received Labs from last 24 hours 07/01/19 07/01/19 07/01/19 15:45 13:05 11:15 WBC RBC Hgb Hct MCV MCH MCHC RDW Plt Count MPV Neut % (Auto) Lymph % (Auto) [place] % (Auto) Eos % (Auto) Baso % (Auto) Neut # (Auto) Lymph # (Auto) [place] # (Auto) Eos # (Auto) Baso # (Auto) Nucleated RBC % (a uto) Nucleated RBCs # Specimen Type Sample Site ABG pH ABG pCO2 ABG pO2 ABG HCO3 ABG O2 Saturation ABG Base Excess Jason Test A-a O2 Gradient Hematocrit Hgb O2 Saturation Carboxyhemoglobin Methemoglobin Total Hemoglobin Ionized Calcium O2 Delivery Device Warehouse Checker ID Sodium Potassium Chloride Carbon Dioxide Anion Gap BUN Creatinine GFR Calculation Glucose POC Glucose 310 226 Lactate Calcium Total Bilirubin AST ALT Alkaline Phosphata se Troponin I 6 Hour Troponin I Hi Sens Del Troponin T Baselin e Troponin T 120 Min [place] Troponin T Total Protein Albumin Globulin Lipase TSH Fluid WBC 11 Fluid RBC 0 Fld Polynuclear WB Cs # 0.001 Fld Polynuclear WB Cs % 9.100 Fl Mononucl WBCs # (Auto) 0.010 Fl Mononuclear % A uto 90.900 07/01/19 07/01/19 07/01/19 08:20 07:43 04:46 WBC RBC Hgb Hct MCV MCH MCHC RDW Plt Count MPV Neut % (Auto) Lymph % (Auto) [place] % (Auto) Eos % (Auto) Baso % (Auto) Neut # (Auto) Lymph # (Auto) [place] # (Auto) Eos # (Auto) Baso # (Auto) Nucleated RBC % (a uto) Nucleated RBCs # Specimen Type Sample Site ABG pH ABG pCO2 ABG pO2 ABG HCO3 ABG O2 Saturation ABG Base Excess Jason Test A-a O2 Gradient Hematocrit Hgb O2 Saturation Carboxyhemoglobin Methemoglobin Total Hemoglobin Ionized Calcium O2 Delivery Device Warehouse Checker ID Sodium Potassium Chloride Carbon Dioxide Anion Gap BUN Creatinine GFR Calculation Glucose POC Glucose 247 Lactate Calcium Total Bilirubin AST ALT Alkaline Phosphata se Troponin I 6 Hour 158.7 H Troponin I Hi Sens Del 7.7 Troponin T Baselin e Troponin T 120 Min [place] Troponin T Total Protein Albumin Globulin Lipase 20 TSH Fluid WBC Fluid RBC Fld Polynuclear WB Cs # Fld Polynuclear WB Cs % Fl Mononucl WBCs # (Auto) Fl Mononuclear % A uto 07/01/19 07/01/19 07/01/19 04:46 04:46 04:46 WBC 8.7 RBC 2.99 L Hgb 9.6 L Hct 29.8 L MCV 99.7 H MCH 32.1 MCHC 32.2 RDW 13.6 Plt Count 227 MPV 11.6 H Neut % (Auto) 83.9 Lymph % (Auto) 13.4 [place] % (Auto) 1.7 Eos % (Auto) 0.1 Baso % (Auto) 0.3 Neut # (Auto) 7.3 Lymph # (Auto) 1.2 [place] # (Auto) 0.2 Eos # (Auto) 0.0 Baso # (Auto) 0.0 Nucleated RBC % (a uto) 0 Nucleated RBCs # 0.0 Specimen Type Sample Site ABG pH ABG pCO2 ABG pO2 ABG HCO3 ABG O2 Saturation ABG Base Excess Jason Test A-a O2 Gradient Hematocrit Hgb O2 Saturation Carboxyhemoglobin Methemoglobin Total Hemoglobin Ionized Calcium O2 Delivery Device Warehouse Checker ID Sodium 136 Potassium 4.2 Chloride 96 L Carbon Dioxide 23 Anion Gap 21.2 H BUN 36 H Creatinine 7.9 H* GFR Calculation 5.3 L Glucose 263 H POC Glucose Lactate Calcium 9.6 Total Bilirubin 0.2 AST 18 ALT 17 Alkaline Phosphata se 107 H Troponin I 6 Hour Troponin I Hi Sens Del Troponin T Baselin e Troponin T 120 Min [place] 154.60 H Delta Troponin T 3.60 Total Protein 7.0 Albumin 3.0 L Globulin 4.0 Lipase TSH Fluid WBC Fluid RBC Fld Polynuclear WB Cs # Fld Polynuclear WB Cs % Fl Mononucl WBCs # (Auto) Fl Mononuclear % A uto 07/01/19 07/01/19 06/30/19 02:23 00:50 21:15 WBC RBC Hgb Hct MCV MCH MCHC RDW Plt Count MPV Neut % (Auto) Lymph % (Auto) [place] % (Auto) Eos % (Auto) Baso % (Auto) Neut # (Auto) Lymph # (Auto) [place] # (Auto) Eos # (Auto) Baso # (Auto) Nucleated RBC % (a uto) Nucleated RBCs # Specimen Type Sample Site ABG pH ABG pCO2 ABG pO2 ABG HCO3 ABG O2 Saturation ABG Base Excess Jason Test A-a O2 Gradient Hematocrit Hgb O2 Saturation Carboxyhemoglobin Methemoglobin Total Hemoglobin Ionized Calcium O2 Delivery Device Warehouse Checker ID Sodium Potassium Chloride Carbon Dioxide Anion Gap BUN Creatinine GFR Calculation Glucose POC Glucose 173 Lactate Calcium Total Bilirubin AST ALT Alkaline Phosphata se Troponin I 6 Hour 166.2 H Troponin I Hi Sens Del -2.8 L Troponin T Baselin e 151 H* Troponin T 120 Min [place] Troponin T Total Protein Albumin Globulin Lipase TSH Fluid WBC Fluid RBC Fld Polynuclear WB Cs # Fld Polynuclear WB Cs % Fl Mononucl WBCs # (Auto) Fl Mononuclear % A uto 06/30/19 06/30/19 06/30/19 20:12 18:00 17:21 WBC RBC Hgb Hct MCV MCH MCHC RDW Plt Count MPV Neut % (Auto) Lymph % (Auto) [place] % (Auto) Eos % (Auto) Baso % (Auto) Neut # (Auto) Lymph # (Auto) [place] # (Auto) Eos # (Auto) Baso # (Auto) Nucleated RBC % (a uto) Nucleated RBCs # Specimen Type Arterial Sample Site Brachial, right ABG pH 7.48 H ABG pCO2 34.0 L ABG pO2 73.3 L ABG HCO3 25.3 ABG O2 Saturation 96.1 ABG Base Excess 1.9 Jason Test Pos A-a O2 Gradient 32.3 H Hematocrit 29.2 L Hgb O2 Saturation 94.8 L Carboxyhemoglobin 0.9 Methemoglobin 0.4 Total Hemoglobin 9.5 L Ionized Calcium 1.2 O2 Delivery Device Room air Warehouse Checker ID monro Sodium 137.0 Potassium 3.5 Chloride Carbon Dioxide Anion Gap BUN Creatinine GFR Calculation Glucose 153.0 H POC Glucose Lactate 2.2 Calcium Total Bilirubin AST ALT Alkaline Phosphata se Troponin I 6 Hour Troponin I Hi Sens Del Troponin T Baselin e Troponin T 120 Min [place] 164.40 H Delta Troponin T -4.60 L Total Protein Albumin Globulin Lipase TSH Fluid WBC Fluid RBC Fld Polynuclear WB Cs # Fld Polynuclear WB Cs % Fl Mononucl WBCs # (Auto) Fl Mononuclear % A uto 06/30/19 06/30/19 06/30/19 15:48 15:48 15:48 WBC RBC Hgb Hct MCV MCH MCHC RDW Plt Count MPV Neut % (Auto) Lymph % (Auto) [place] % (Auto) Eos % (Auto) Baso % (Auto) Neut # (Auto) Lymph # (Auto) [place] # (Auto) Eos # (Auto) Baso # (Auto) Nucleated RBC % (a uto) Nucleated RBCs # Specimen Type Sample Site ABG pH ABG pCO2 ABG pO2 ABG HCO3 ABG O2 Saturation ABG Base Excess Jason Test A-a O2 Gradient Hematocrit Hgb O2 Saturation Carboxyhemoglobin Methemoglobin Total Hemoglobin Ionized Calcium O2 Delivery Device Warehouse Checker ID Sodium 134 L Potassium 3.8 Chloride 92 L Carbon Dioxide 24 Anion Gap 21.8 H BUN 31 H Creatinine 7.8 H* GFR Calculation 5.4 L Glucose 210 H POC Glucose Lactate Calcium 9.8 Total Bilirubin 0.3 AST 16 ALT 16 Alkaline Phosphata se 104 Troponin I 6 Hour Troponin I Hi Sens Del Troponin T Baselin e 169 H* Troponin T 120 Min [place] Troponin T Total Protein 7.3 Albumin 2.9 L Globulin 4.4 Lipase TSH 1.21 Fluid WBC Fluid RBC Fld Polynuclear WB Cs # Fld Polynuclear WB Cs % Fl Mononucl WBCs # (Auto) Fl Mononuclear % A uto Vitals: Last Vital Signs Temp 98.4 F 07/01/19 14:00 Pulse 82 07/01/19 14:00 Resp 18 07/01/19 14:00 BP 150/84 07/01/19 14:00 Pulse Ox 91 07/01/19 14:00 TS Medications Medications Home Medications aspirin 81 mg PO DAILY 06/25/19 [History Confirmed 06/30/19] atorvastatin 40 mg PO DAILY 06/25/19 [History Confirmed 06/30/19] clopidogrel 75 mg PO DAILY 06/25/19 [History Confirmed 06/30/19] isosorbide mononitrate 30 mg PO DAILY 06/25/19 [History Confirmed 06/30/19] levothyroxine 224 mcg PO DAILY 06/25/19 [History Confirmed 06/30/19] metoprolol succinate 50 mg PO DAILY 06/25/19 [History Confirmed 06/30/19] pantoprazole 40 mg PO DAILY 06/25/19 [History Confirmed 06/30/19] insulin aspart U-100 [Novolog PenFill U-100 Insulin] See Rx Instructions .ROUTE .COMPLEX #100 ml 06/27/19 [Rx Confirmed 06/30/19] bumetanide 1 mg PO BID 06/30/19 [History Confirmed 06/30/19] levofloxacin 250 mg PO DAILY 06/30/19 [History Confirmed 06/30/19] multivitamin [Multiple Vitamins] 1 tab PO DAILY 06/30/19 [History Confirmed 06/30/19] paricalcitol [Zemplar] See Rx Instructions .ROUTE .COMPLEX 06/30/19 [History Confirmed 06/30/19] paricalcitol [Zemplar] See Rx Instructions .ROUTE .COMPLEX 06/30/19 [History Confirmed 06/30/19] sulfamethoxazole-trimethoprim [Bactrim DS] 1 tab PO BID 06/30/19 [History Confirmed 06/30/19] Active Medications Aspirin (Aspirin Chewable) 81 mg PO DAILY [facility] Last Admin: 07/01/19 10:33 Dose: Not Given Documented by: Atorvastatin Calcium (Lipitor) 40 mg PO DAILY [facility] Last Admin: 07/01/19 10:33 Dose: Not Given Documented by: Clopidogrel Bisulfate (Plavix) 75 mg PO DAILY [facility] Last Admin: 07/01/19 10:33 Dose: Not Given Documented by: Dextrose (D50w) 25 ml IVP ONCE PRN; Protocol PRN Reason: hypoglycemia protocol Dextrose (D50w) 50 ml IVP PRN PRN; Protocol PRN Reason: hypoglycemia protocol Gentamicin Sulfate (Gentamicin Cream) 1 applic TOPICAL DAILY [facility] Glucagon (Glucagen) 1 mg IM ONCE PRN; Protocol PRN Reason: Adult Acute Hypoglycemia Prot. Heparin Sodium (Beef Lung) (Heparin) 5,000 unit SUBCUT Q8H [facility] Last Admin: 07/01/19 10:27 Dose: 5,000 unit Documented by: Dextrose (D5w) 500 mls @ 100 mls/hr IV ONCE PRN; Protocol PRN Reason: Adult Acute Hypoglycemia Prot Levofloxacin/Dextrose (Levaquin-D5w) 750 mg in 150 mls @ 150 mls/hr IV Q48H [facility]; Protocol Insulin Aspart (Novolog) 0 unit SUBCUT WM&BEDTIME [facility]; Protocol Last Admin: 07/01/19 12:49 Dose: 6 unit Documented by: Isosorbide Mononitrate (Imdur) 30 mg PO DAILY [facility] Last Admin: 07/01/19 10:33 Dose: Not Given Documented by: Levothyroxine Sodium (Synthroid) 224 mcg PO DAILY [facility] Last Admin: 07/01/19 10:33 Dose: Not Given Documented by: Midodrine (Proamatine) 10 mg PO TID [facility] Last Admin: 07/01/19 12:48 Dose: 10 mg Documented by: Non-Formulary Medication (Paricalcitol [Zemplar]) 1 mcg PO .COMPLEX [facility] Ondansetron HCl (Zofran) 4 mg IVP Q6H PRN PRN Reason: NAUSEA AND VOMITING Last Admin: 07/01/19 11:05 Dose: 4 mg Documented by: Pantoprazole Sodium (Protonix) 40 mg PO BID [facility] Peritoneal Dialysis Solution (Dianeal Low Ca W/1.5% Dex) 2,000 ml INTRAPERIT QID [facility] Last Admin: 07/01/19 14:13 Dose: 2,000 ml Documented by: Trimethoprim/Sulfamethoxazole (Bactrim Ds) 1 tab PO BID [facility]; Protocol Last Admin: 07/01/19 10:34 Dose: Not Given Documented by: Discharge Plan Discharge Patient Disposition: Home, Self-Care Condition: Stable Prescriptions: No Action atorvastatin 40 mg tablet 40 mg PO DAILY RF: 0 metoprolol succinate 50 mg tablet extended release 24 hr 50 mg PO DAILY RF: 0 isosorbide mononitrate 30 mg Tablet Extended Release 24 Hr 30 mg PO DAILY RF: 0 clopidogrel 75 mg tablet 75 mg PO DAILY RF: 0 pantoprazole 40 mg tablet,delayed release (DR/EC) 40 mg PO DAILY RF: 0 levothyroxine 112 mcg Tablet 224 mcg PO DAILY RF: 0 aspirin 81 mg Tablet,Chewable 81 mg PO DAILY RF: 0 Novolog PenFill U-100 Insulin 100 unit/mL cartridge See Rx Instructions .ROUTE .COMPLEX Qty: 100 RF: 1 Multiple Vitamins Tablet 1 tab PO DAILY RF: 0 Bactrim DS 800-160 mg Tablet 1 tab PO BID RF: 0 bumetanide 1 mg Tablet 1 mg PO BID RF: 0 Zemplar 1 mcg Capsule See Rx Instructions .ROUTE .COMPLEX RF: 0 levofloxacin 250 mg tablet 250 mg PO DAILY RF: 0 paricalcitol [Zemplar] 1 mcg capsule See Rx Instructions .ROUTE .COMPLEX RF: 0 Discharge Orders: Transfer Out of Facility (Order); Ordered 07/01/19 Ordered By: Calvin Zamorano Transfer Attestations Time Spent in Transfer Care*: greater than 30 min Status at Transfer: Cognitive status at transfer: cognitively intact, Behavioral status at transfer: cooperative, Quality Metrics Clinical Quality Measures: During this hospital stay, did patient experience: None Coding Level of Care Code Acute [employer] Install[employer] for [employer] Diagnoses Nausea R11.0 Hypotension I95.9 Elevated troponin R79.89 Peripheral vascular disease I73.9 Chronic renal failure N18.9 Chronic kidney disease stage: unspecified stage Peritoneal dialysis catheter in place Z99.2
[2019-07-01 16:40] LABS: Apprearance, Body Fluid CLEAR (CLEAR); Color, Body Fluid COLORLESS (PALE YELLOW)
[2019-07-01 16:41] LABS: PATH Referral YES
== END 2019-07-01 19:05 | disposition home or self-care (01) | DRG 312 ==
LOC: ER 18:18 → CSU 21:54
PROVIDERS: Family Medicine; Internal Medicine; Admitting Provider Internal Medicine; Emergency Provider Emergency Medicine; Family Provider Internal Medicine; PCP Internal Medicine; Visit Provider Internal Medicine
DX: I95.2 Hypotension due to drugs (principal); N18.6 End stage renal disease; I13.2 Hypertensive heart and chronic kidney disease with heart failure and with stage 5 chronic kidney disease, or end stage renal disease; I50.32 Chronic diastolic (congestive) heart failure; E87.3 Alkalosis; R11.0 Nausea; R07.9 Chest pain, unspecified; E11.22 Type 2 diabetes mellitus with diabetic chronic kidney disease; Z99.2 Dependence on renal dialysis; E11.51 Type 2 diabetes mellitus with diabetic peripheral angiopathy without gangrene; F41.9 Anxiety disorder, unspecified; E66.01 Morbid (severe) obesity due to excess calories; I87.2 Venous insufficiency (chronic) (peripheral); F32.9 Major depressive disorder, single episode, unspecified; K21.9 Gastro-esophageal reflux disease without esophagitis; E86.1 Hypovolemia; E78.5 Hyperlipidemia, unspecified; E03.9 Hypothyroidism, unspecified; I25.2 Old myocardial infarction; Z68.34 Body mass index [BMI] 34.0-34.9, adult; D64.9 Anemia, unspecified; Y83.6 Removal of other organ (partial) (total) as the cause of abnormal reaction of the patient, or of later complication, without mention of misadventure at the time of the procedure; Z86.73 Personal history of transient ischemic attack (TIA), and cerebral infarction without residual deficits; Z89.511 Acquired absence of right leg below knee; T50.915A Adverse effect of multiple unspecified drugs, medicaments and biological substances, initial encounter
CPT/HCPCS: 12345; 36415; 36416; 36600; 71045; 80051; 80053; 80500; 82810; 82962; 83605; 83690; 83986; 84443; 84484; 85025; 87070; 87075; 87205; 89050; 90935; 93005; 96372; 96374; 96375; 99281; J1644; J1720; J1815; J2405; J7030; Q3014

== ENCOUNTER 2019-08-01 16:59 | Inpatient (IN) | payer MEDICARE, MEDICAID, SELFPAY ==
[2019-08-01] VITALS (7 sets, daily range): BP systolic 92–112; BP diastolic 57–69; PULSE 76–86; RESP 14–20; TEMP 36.6; O2SAT 88–99; BMI 36.4
--- NOTE | 2019-08-01 17:05 | ED_ITS ---
Entered by Richelle Deng, acting as scribe for Tino Greenfield DO Documented by User: Tino Greenfield DO 08/01/19 17:48 HPI - General Adult General: Chief complaint: Weakness Stated complaint: HYPOTENSION Time Seen by Provider: 08/01/19 17:10 Source: patient and EMS Mode of arrival: EMS Limitations: no limitations History of Present Illness: MD complaint: low blood pressure Onset (ago): day(s) (yesterday) Pain Consistency: constant Relieving factors: none Exacerbating factors: movement Review of Systems Const: Reports: fatigue ENMT: Denies: enlarged tonsils PFSH ED PFSH: Social History Smoking and tobacco status: never smoked Alcohol intake: never Household members: spouse and family Physical Exam Const: COMMON NORMALS: no apparent distress, average body habitus, oriented x3, no limitations, healthy appearing and well nourished GENERAL APPEARANCE: lethargic and other ORIENTATION/CONSCIOUSNESS: Yes lethargic HENMT: COMMON NORMALS: normocephalic, head/scalp atraumatic, hearing grossly normal bilaterally, external ears normal, EAC's normal, TM's normal bilaterally, external nose normal, nasal mucous membranes and turbinates normal, moist oral mucous membranes, oropharynx normal, dentition normal and gingiva normal HEAD & SCALP: normocephalic and atraumatic NOSE: external nose normal and nasal mucous membranes and turbinates normal EXTERNAL EAR: Yes external ears normal EXTERNAL AUDITORY CANAL: EAC's normal TYMPANIC MEMBRANE: TM's normal bilaterally Eye: COMMON NORMALS: PERRL, EOMs intact bilaterally, conjunctivae normal, no scleral icterus, no papilledema, normal visual desir by confrontation and fundi normal bilaterally CONJUNCTIVA: Yes conjunctivae normal PUPIL: Yes PERRL DIRECT OPHTHALMOSCOPY: Yes no papilledema and Yes fundi normal bilaterally Neck/C-Spine: COMMON NORMALS: full ROM, no lymphadenopathy, supple, no meningeal signs, no JVD, thyroid normal and no carotid bruits THYROID: thyroid normal Chest: COMMONS NORMALS: inspection of chest normal and palpation of chest normal Resp: COMMON NORMALS: normal respiratory effort, no retractions, no use of accessory muscles, clear to auscultation bilaterally and percussion normal AUSCULTATION: clear to auscultation bilaterally PERCUSSION: percussion normal Cardio: COMMON NORMALS: no JVD, regular rate, regular rhythm, S1 normal heart sound, S2 normal heart sound, no gallops, no clicks, no murmurs, no rub and peripheral pulses 2+ throughout RATE: regular rate RHYTHM: regular rhythm HEART SOUNDS: S1 normal and S2 normal PERIPHERAL PULSES: pulses 2+ throughout GI: COMMON NORMALS: normal to inspection, nondistended, normoactive bowel sounds, soft to palpation, non-tender, no hepatosplenomegaly, no masses and no bruits PALPATION: Yes soft and Yes no hepatosplenomegaly : COMMON NORMALS: Yes no CVA tenderness and Yes external appearance normal BLADDER/KIDNEY EXAM: Yes no CVA tenderness Back/Pelvis: COMMON NORMALS: no CVA tenderness, thoracic and lumbar spine normal to inspection, no thoracic nor lumbar tenderness, thoraco-lumbar ROM normal and straight leg raise negative bilaterally Extremity: COMMON NORMALS: normal to inspection, full ROM, normal capillary refill, no joint enlargement, no clubbing, cyanosis or edema, no calf tenderness and no pedal edema Neuro: COMMON NORMALS: oriented x3 SENSORIUM/ORIENTATION: Yes lethargic MENINGEAL SIGNS: Yes no meningeal signs Skin: COMMON NORMALS: no rashes or lesions noted, no wounds, skin turgor normal, no jaundice, no petechiae and no mottling GENERAL SKIN EXAM: no rashes or lesions noted and turgor normal Course Vital Signs: Vital signs: Vital Signs Temperature 97.8 F 08/02/19 00:04 Pulse Rate 75 08/02/19 00:04 Respiratory Rate 18 08/02/19 00:04 Blood Pressure 119/79 08/02/19 00:04 Pulse Oximetry 98 08/02/19 00:04 [facility] - General Adult Lab Data: Labs: Lab Results 08/01/19 08/01/19 08/01/19 Range/Units 17:48 17:48 17:48 WBC 6.2 (4.0-10.0) 10^3/ uL RBC 3.11 L (4.1-5.3) 10^6/u L Hgb 10.4 L (11.5-15.3) g/dL Hct 31.5 L (37.0-47.0) % MCV 101.3 H (81-99) fL MCH 33.4 (28.0-34.0) pg MCHC 33.0 (30.0-36.0) g/dL RDW 15.0 (12.1-15.1) % Plt Count 196 (130-400) 10^3/c mm MPV 10.8 H (7.4-10.4) fL Neut % (Auto) 67.7 % Lymph % (Auto) 19.9 % [place] % (Auto) 8.7 % Eos % (Auto) 2.4 % Baso % (Auto) 0.5 % Neut # (Auto) 4.2 (1.8-7.7) 10^3/u L Lymph # (Auto) 1.2 (0.8-4.8) 10^3/u L [place] # (Auto) 0.5 (0.2-0.9) 10^3/u L Eos # (Auto) 0.2 (0.0-0.8) 10^3/u L Baso # (Auto) 0.0 (0.0-0.1) 10^3/u L Nucleated RBC % (a uto) 0 % Nucleated RBCs # 0.0 /100WBC Differential Comme nt D-Dimer 0.77 H (0-0.59) ug/mIFE U Specimen Type Sample Site ABG pH (7.35-7.45) ABG pCO2 (35-45) mmHg ABG pO2 (80.0-100.0) mmH g ABG HCO3 (22-26) mmol/L ABG Base Excess (-2.0-2.0) mmol/ L Jason Test Hematocrit (37-47) % O2 Delivery Device O2 Liters/Min % FiO2 % Damage Cutter ID Sodium 124 L (136-145) mmol/L Potassium 4.3 (3.5-5.1) mmol/L Chloride 85 L (98-107) mmol/L Carbon Dioxide 25 (22-29) mmol/L Anion Gap 18.3 (5-19) BUN 48 H (6-20) mg/dL Creatinine 9.1 H* (0.5-0.9) mg/dL GFR Calculation 4.5 L (90-130) mL/min Glucose 225 H (65-115) mg/dL Lactate (0.5-2.2) mmol/L Calcium 10.1 (8.5-10.5) mg/dL Total Bilirubin 0.4 (0.15-1.2) mg/dL AST 21 (0-32) U/L ALT 15 (0-33) U/L Alkaline Phosphata se 127 H (35-105) IU/L Troponin T Baselin e (0-10) ng/mL Troponin T 120 Min clark's point (0-10) ng/mL Delta Troponin T (0-10) ABS# NT-Pro-B Natriuret Pep 2202 H (0-125) pg/mL Total Protein 6.8 (6.6-8.7) g/dL Albumin 3.0 L (3.5-5.2) g/dL Globulin 3.8 (1.3-4.6) g/dL Urine Color (Yellow) Urine Appearance (CLEAR) Urine pH (5-7) Ur Specific Gravit y (1.005-1.030) Urine Protein (Negative) Urine Glucose (UA) (Normal) Urine Ketones (Negative) Urine Blood (Negative) Urine Nitrate (Negative) Urine Bilirubin (NEGATIVE) Urine Urobilinogen (Negative) mg/dL Ur Leukocyte Yara ase (Negative) Urine RBC (0-2) /hpf Urine WBC (0-5) /hpf Ur Squamous Epith Cells (0-5) Ur Transition Epit h Cell /hpf Urine Bacteria (NONE) Urine Yeast Fluid Color (PALE YELLOW) Fluid Appearance (CLEAR) Fluid WBC u/L Fluid RBC (0-0) 10^3/uL Fld Polynuclear WB Cs # 10^3/uL Fld Polynuclear WB Cs % % Fl Mononucl WBCs # (Auto) 10^3/uL Fl Mononuclear % A uto % Serum Ketones (Negative) Influenza Type A A g (Negative) POC Influenza B Ag (Negative) 08/01/19 08/01/19 08/01/19 Range/Units 17:48 17:48 17:48 WBC (4.0-10.0) 10^3/ uL RBC (4.1-5.3) 10^6/u L Hgb (11.5-15.3) g/dL Hct (37.0-47.0) % MCV (81-99) fL MCH (28.0-34.0) pg MCHC (30.0-36.0) g/dL RDW (12.1-15.1) % Plt Count (130-400) 10^3/c mm MPV (7.4-10.4) fL Neut % (Auto) % Lymph % (Auto) % [place] % (Auto) % Eos % (Auto) % Baso % (Auto) % Neut # (Auto) (1.8-7.7) 10^3/u L Lymph # (Auto) (0.8-4.8) 10^3/u L [place] # (Auto) (0.2-0.9) 10^3/u L Eos # (Auto) (0.0-0.8) 10^3/u L Baso # (Auto) (0.0-0.1) 10^3/u L Nucleated RBC % (a uto) % Nucleated RBCs # /100WBC Differential Comme nt D-Dimer (0-0.59) ug/mIFE U Specimen Type Sample Site ABG pH (7.35-7.45) ABG pCO2 (35-45) mmHg ABG pO2 (80.0-100.0) mmH g ABG HCO3 (22-26) mmol/L ABG Base Excess (-2.0-2.0) mmol/ L Jason Test Hematocrit (37-47) % O2 Delivery Device O2 Liters/Min % FiO2 % Damage Cutter ID Sodium (136-145) mmol/L Potassium (3.5-5.1) mmol/L Chloride (98-107) mmol/L Carbon Dioxide (22-29) mmol/L Anion Gap (5-19) BUN (6-20) mg/dL Creatinine (0.5-0.9) mg/dL GFR Calculation (90-130) mL/min Glucose (65-115) mg/dL Lactate 2.0 (0.5-2.2) mmol/L Calcium (8.5-10.5) mg/dL Total Bilirubin (0.15-1.2) mg/dL AST (0-32) U/L ALT (0-33) U/L Alkaline Phosphata se (35-105) IU/L Troponin T Baselin e 220 H* (0-10) ng/mL Troponin T 120 Min clark's point (0-10) ng/mL Delta Troponin T (0-10) ABS# NT-Pro-B Natriuret Pep (0-125) pg/mL Total Protein (6.6-8.7) g/dL Albumin (3.5-5.2) g/dL Globulin (1.3-4.6) g/dL Urine Color (Yellow) Urine Appearance (CLEAR) Urine pH (5-7) Ur Specific Gravit y (1.005-1.030) Urine Protein (Negative) Urine Glucose (UA) (Normal) Urine Ketones (Negative) Urine Blood (Negative) Urine Nitrate (Negative) Urine Bilirubin (NEGATIVE) Urine Urobilinogen (Negative) mg/dL Ur Leukocyte Yara ase (Negative) Urine RBC (0-2) /hpf Urine WBC (0-5) /hpf Ur Squamous Epith Cells (0-5) Ur Transition Epit h Cell /hpf Urine Bacteria (NONE) Urine Yeast Fluid Color (PALE YELLOW) Fluid Appearance (CLEAR) Fluid WBC u/L Fluid RBC (0-0) 10^3/uL Fld Polynuclear WB Cs # 10^3/uL Fld Polynuclear WB Cs % % Fl Mononucl WBCs # (Auto) 10^3/uL Fl Mononuclear % A uto % Serum Ketones Negative (Negative) Influenza Type A A g (Negative) POC Influenza B Ag (Negative) 08/01/19 08/01/19 08/01/19 Range/Units 18:09 19:21 20:15 WBC (4.0-10.0) 10^3/ uL RBC (4.1-5.3) 10^6/u L Hgb (11.5-15.3) g/dL Hct (37.0-47.0) % MCV (81-99) fL MCH (28.0-34.0) pg MCHC (30.0-36.0) g/dL RDW (12.1-15.1) % Plt Count (130-400) 10^3/c mm MPV (7.4-10.4) fL Neut % (Auto) % Lymph % (Auto) % [place] % (Auto) % Eos % (Auto) % Baso % (Auto) % Neut # (Auto) (1.8-7.7) 10^3/u L Lymph # (Auto) (0.8-4.8) 10^3/u L [place] # (Auto) (0.2-0.9) 10^3/u L Eos # (Auto) (0.0-0.8) 10^3/u L Baso # (Auto) (0.0-0.1) 10^3/u L Nucleated RBC % (a uto) % Nucleated RBCs # /100WBC Differential Comme nt D-Dimer (0-0.59) ug/mIFE U Specimen Type Arterial Sample Site Brachial, right ABG pH 7.51 H (7.35-7.45) ABG pCO2 33.7 L (35-45) mmHg ABG pO2 90.5 (80.0-100.0) mmH g ABG HCO3 26.6 H (22-26) mmol/L ABG Base Excess 3.7 H (-2.0-2.0) mmol/ L Jason Test N/a Hematocrit 41.0 (37-47) % O2 Delivery Device Nc O2 Liters/Min 2.0 % FiO2 28.0 % Damage Cutter ID ed Sodium (136-145) mmol/L Potassium (3.5-5.1) mmol/L Chloride (98-107) mmol/L Carbon Dioxide (22-29) mmol/L Anion Gap (5-19) BUN (6-20) mg/dL Creatinine (0.5-0.9) mg/dL GFR Calculation (90-130) mL/min Glucose (65-115) mg/dL Lactate (0.5-2.2) mmol/L Calcium (8.5-10.5) mg/dL Total Bilirubin (0.15-1.2) mg/dL AST (0-32) U/L ALT (0-33) U/L Alkaline Phosphata se (35-105) IU/L Troponin T Baselin e (0-10) ng/mL Troponin T 120 Min [place] point 211.5 H (0-10) ng/mL Delta Troponin T -8.5 L (0-10) ABS# NT-Pro-B Natriuret Pep (0-125) pg/mL Total Protein (6.6-8.7) g/dL Albumin (3.5-5.2) g/dL Globulin (1.3-4.6) g/dL Urine Color (Yellow) Urine Appearance (CLEAR) Urine pH (5-7) Ur Specific Gravit y (1.005-1.030) Urine Protein (Negative) Urine Glucose (UA) (Normal) Urine Ketones (Negative) Urine Blood (Negative) Urine Nitrate (Negative) Urine Bilirubin (NEGATIVE) Urine Urobilinogen (Negative) mg/dL Ur Leukocyte Yara ase (Negative) Urine RBC (0-2) /hpf Urine WBC (0-5) /hpf Ur Squamous Epith Cells (0-5) Ur Transition Epit h Cell /hpf Urine Bacteria (NONE) Urine Yeast Fluid Color (PALE YELLOW) Fluid Appearance (CLEAR) Fluid WBC u/L Fluid RBC (0-0) 10^3/uL Fld Polynuclear WB Cs # 10^3/uL Fld Polynuclear WB Cs % % Fl Mononucl WBCs # (Auto) 10^3/uL Fl Mononuclear % A uto % Serum Ketones (Negative) Influenza Type A A g Negative (Negative) POC Influenza B Ag Negative (Negative) 08/01/19 08/01/19 Range/Units 20:52 21:05 WBC (4.0-10.0) 10^3/ uL RBC (4.1-5.3) 10^6/u L Hgb (11.5-15.3) g/dL Hct (37.0-47.0) % MCV (81-99) fL MCH (28.0-34.0) pg MCHC (30.0-36.0) g/dL RDW (12.1-15.1) % Plt Count (130-400) 10^3/c mm MPV (7.4-10.4) fL Neut % (Auto) % Lymph % (Auto) % [place] % (Auto) % Eos % (Auto) % Baso % (Auto) % Neut # (Auto) (1.8-7.7) 10^3/u L Lymph # (Auto) (0.8-4.8) 10^3/u L [place] # (Auto) (0.2-0.9) 10^3/u L Eos # (Auto) (0.0-0.8) 10^3/u L Baso # (Auto) (0.0-0.1) 10^3/u L Nucleated RBC % (a uto) % Nucleated RBCs # /100WBC Differential Comme nt Yes D-Dimer (0-0.59) ug/mIFE U Specimen Type Sample Site ABG pH (7.35-7.45) ABG pCO2 (35-45) mmHg ABG pO2 (80.0-100.0) mmH g ABG HCO3 (22-26) mmol/L ABG Base Excess (-2.0-2.0) mmol/ L Jason Test Hematocrit (37-47) % O2 Delivery Device O2 Liters/Min % FiO2 % Damage Cutter ID Sodium (136-145) mmol/L Potassium (3.5-5.1) mmol/L Chloride (98-107) mmol/L Carbon Dioxide (22-29) mmol/L Anion Gap (5-19) BUN (6-20) mg/dL Creatinine (0.5-0.9) mg/dL GFR Calculation (90-130) mL/min Glucose (65-115) mg/dL Lactate (0.5-2.2) mmol/L Calcium (8.5-10.5) mg/dL Total Bilirubin (0.15-1.2) mg/dL AST (0-32) U/L ALT (0-33) U/L Alkaline Phosphata se (35-105) IU/L Troponin T Baselin e (0-10) ng/mL Troponin T 120 Min clark[place] point (0-10) ng/mL Delta Troponin T (0-10) ABS# NT-Pro-B Natriuret Pep (0-125) pg/mL Total Protein (6.6-8.7) g/dL Albumin (3.5-5.2) g/dL Globulin (1.3-4.6) g/dL Urine Color Yellow (Yellow) Urine Appearance Cloudy (CLEAR) Urine pH 5 (5-7) Ur Specific Gravit y 1.015 (1.005-1.030) Urine Protein 3+ H (Negative) Urine Glucose (UA) 1+ (Normal) Urine Ketones Negative (Negative) Urine Blood 2+ H (Negative) Urine Nitrate Negative (Negative) Urine Bilirubin 1+ H (NEGATIVE) Urine Urobilinogen Norm (Negative) mg/dL Ur Leukocyte Yara ase 2+ H (Negative) Urine RBC 15-25 H (0-2) /hpf Urine WBC Too numerous to c nt H (0-5) /hpf Ur Squamous Epith Cells 55-80 H (0-5) Ur Transition Epit h Cell 10-15 /hpf Urine Bacteria 2+ H (NONE) Urine Yeast 4+ H Fluid Color Colorless (PALE YELLOW) Fluid Appearance Clear (CLEAR) Fluid WBC 13 u/L Fluid RBC 0 (0-0) 10^3/uL Fld Polynuclear WB Cs # 0.000 10^3/uL Fld Polynuclear WB Cs % 0.000 % Fl Mononucl WBCs # (Auto) 0.013 10^3/uL Fl Mononuclear % A uto 100.000 % Serum Ketones (Negative) Influenza Type A A g (Negative) POC Influenza B Ag (Negative) Discharge Plan Discharge Patient Disposition: Admitted As Inpatient Admit Provider: Neeta Jeronimo Clinical Impression: Acute hypotension Condition: Stable Referrals: Yovany Leonardo MD [Primary Care Provider] - Discharge Date/Time: 08/02/19 00:00 Sign Out Sign Out Data: Patient Sign Out occurred on 08/01/19 at 19:17. Patient's care was discussed, and care was transferred from to Maricarmen Mix. Coding Level of Care Code ED Legal Associate for Chg Fwd Exam Comprehensive Documented by User: Maricarmen Mix 08/02/19 01:12 HPI - General Adult General: Chief complaint: Weakness Stated complaint: HYPOTENSION Time Seen by Provider: 08/01/19 17:10 PFSH ED PFSH: Social History Smoking and tobacco status: never smoked Alcohol intake: never Household members: spouse and family Course Vital Signs: Vital signs: Vital Signs Temperature 97.8 F 08/02/19 00:04 Pulse Rate 75 08/02/19 00:04 Respiratory Rate 18 08/02/19 00:04 Blood Pressure 119/79 08/02/19 00:04 Pulse Oximetry 98 08/02/19 00:04 MDM - General Adult MDM Narrative: Medical decision making narrative: 1800 -Case inherited by me at signout at change of shift from Dr. Ryan. Please see his note for his history, physical exam and medical decision-making notes. Upon my history the patient states that today she just woke up dizzy and lightheaded. She felt tired like she did not have enough energy. She denies any headache, neck pain, abdominal pain, back pain, chest pain or shortness of breath or dysuria. She states she just feels weak and tired. Admission -the patient's hypotension is improved with small fluid boluses as sepsis is definitely a cause for her symptoms but not definitive as she has no white count or fever. With her end-stage renal disease and diabetes she is relatively immunosuppressed she of covered her with broad based antibiotics and given her fluid boluses to maintain a map of 65. The patient is feeling better. There is no evidence of infected peritoneal dialysis fluid, her foot does not look like osteomyelitis or cellulitis and there is no evidence of pneumonia on her chest x-ray. A d-dimer was ordered but the patient has no chest pain or shortness of breath or leg pain. She is not tachycardic and I believe is likely elevated secondary to her end-stage renal disease. Following the YEARS algorithm for pulmonary embolism her d-dimer is below the threshold to consider moving forward. The patient's first urinalysis was contaminated with squamous cells we will try to obtain another. The patient has been empirically loaded with Zosyn and vancomycin. The case was endorsed to Dr. Durham and she will go ahead and admit for further evaluation and care. Lab Data: Attestation: I reviewed the patient's lab results. Labs: Lab Results 08/01/19 08/01/19 08/01/19 Range/Units 17:48 17:48 17:48 WBC 6.2 (4.0-10.0) 10^3/ uL RBC 3.11 L (4.1-5.3) 10^6/u L Hgb 10.4 L (11.5-15.3) g/dL Hct 31.5 L (37.0-47.0) % MCV 101.3 H (81-99) fL MCH 33.4 (28.0-34.0) pg MCHC 33.0 (30.0-36.0) g/dL RDW 15.0 (12.1-15.1) % Plt Count 196 (130-400) 10^3/c mm MPV 10.8 H (7.4-10.4) fL Neut % (Auto) 67.7 % Lymph % (Auto) 19.9 % [place] % (Auto) 8.7 % Eos % (Auto) 2.4 % Baso % (Auto) 0.5 % Neut # (Auto) 4.2 (1.8-7.7) 10^3/u L Lymph # (Auto) 1.2 (0.8-4.8) 10^3/u L [place] # (Auto) 0.5 (0.2-0.9) 10^3/u L Eos # (Auto) 0.2 (0.0-0.8) 10^3/u L Baso # (Auto) 0.0 (0.0-0.1) 10^3/u L Nucleated RBC % (a uto) 0 % Nucleated RBCs # 0.0 /100WBC Differential Comme nt D-Dimer 0.77 H (0-0.59) ug/mIFE U Specimen Type Sample Site ABG pH (7.35-7.45) ABG pCO2 (35-45) mmHg ABG pO2 (80.0-100.0) mmH g ABG HCO3 (22-26) mmol/L ABG Base Excess (-2.0-2.0) mmol/ L Jason Test Hematocrit (37-47) % O2 Delivery Device O2 Liters/Min % FiO2 % Damage Cutter ID Sodium 124 L (136-145) mmol/L Potassium 4.3 (3.5-5.1) mmol/L Chloride 85 L (98-107) mmol/L Carbon Dioxide 25 (22-29) mmol/L Anion Gap 18.3 (5-19) BUN 48 H (6-20) mg/dL Creatinine 9.1 H* (0.5-0.9) mg/dL GFR Calculation 4.5 L (90-130) mL/min Glucose 225 H (65-115) mg/dL Lactate (0.5-2.2) mmol/L Calcium 10.1 (8.5-10.5) mg/dL Total Bilirubin 0.4 (0.15-1.2) mg/dL AST 21 (0-32) U/L ALT 15 (0-33) U/L Alkaline Phosphata se 127 H (35-105) IU/L Troponin T Baselin e (0-10) ng/mL Troponin T 120 Min clark's point (0-10) ng/mL Delta Troponin T (0-10) ABS# NT-Pro-B Natriuret Pep 2202 H (0-125) pg/mL Total Protein 6.8 (6.6-8.7) g/dL Albumin 3.0 L (3.5-5.2) g/dL Globulin 3.8 (1.3-4.6) g/dL Urine Color (Yellow) Urine Appearance (CLEAR) Urine pH (5-7) Ur Specific Gravit y (1.005-1.030) Urine Protein (Negative) Urine Glucose (UA) (Normal) Urine Ketones (Negative) Urine Blood (Negative) Urine Nitrate (Negative) Urine Bilirubin (NEGATIVE) Urine Urobilinogen (Negative) mg/dL Ur Leukocyte Yara ase (Negative) Urine RBC (0-2) /hpf Urine WBC (0-5) /hpf Ur Squamous Epith Cells (0-5) Ur Transition Epit h Cell /hpf Urine Bacteria (NONE) Urine Yeast Fluid Color (PALE YELLOW) Fluid Appearance (CLEAR) Fluid WBC u/L Fluid RBC (0-0) 10^3/uL Fld Polynuclear WB Cs # 10^3/uL Fld Polynuclear WB Cs % % Fl Mononucl WBCs # (Auto) 10^3/uL Fl Mononuclear % A uto % Serum Ketones (Negative) Influenza Type A A g (Negative) POC Influenza B Ag (Negative) 08/01/19 08/01/19 08/01/19 Range/Units 17:48 17:48 17:48 WBC (4.0-10.0) 10^3/ uL RBC (4.1-5.3) 10^6/u L Hgb (11.5-15.3) g/dL Hct (37.0-47.0) % MCV (81-99) fL MCH (28.0-34.0) pg MCHC (30.0-36.0) g/dL RDW (12.1-15.1) % Plt Count (130-400) 10^3/c mm MPV (7.4-10.4) fL Neut % (Auto) % Lymph % (Auto) % [place] % (Auto) % Eos % (Auto) % Baso % (Auto) % Neut # (Auto) (1.8-7.7) 10^3/u L Lymph # (Auto) (0.8-4.8) 10^3/u L [place] # (Auto) (0.2-0.9) 10^3/u L Eos # (Auto) (0.0-0.8) 10^3/u L Baso # (Auto) (0.0-0.1) 10^3/u L Nucleated RBC % (a uto) % Nucleated RBCs # /100WBC Differential Comme nt D-Dimer (0-0.59) ug/mIFE U Specimen Type Sample Site ABG pH (7.35-7.45) ABG pCO2 (35-45) mmHg ABG pO2 (80.0-100.0) mmH g ABG HCO3 (22-26) mmol/L ABG Base Excess (-2.0-2.0) mmol/ L Jason Test Hematocrit (37-47) % O2 Delivery Device O2 Liters/Min % FiO2 % Damage Cutter ID Sodium (136-145) mmol/L Potassium (3.5-5.1) mmol/L Chloride (98-107) mmol/L Carbon Dioxide (22-29) mmol/L Anion Gap (5-19) BUN (6-20) mg/dL Creatinine (0.5-0.9) mg/dL GFR Calculation (90-130) mL/min Glucose (65-115) mg/dL Lactate 2.0 (0.5-2.2) mmol/L Calcium (8.5-10.5) mg/dL Total Bilirubin (0.15-1.2) mg/dL AST (0-32) U/L ALT (0-33) U/L Alkaline Phosphata se (35-105) IU/L Troponin T Baselin e 220 H* (0-10) ng/mL Troponin T 120 Min clark's point (0-10) ng/mL Delta Troponin T (0-10) ABS# NT-Pro-B Natriuret Pep (0-125) pg/mL Total Protein (6.6-8.7) g/dL Albumin (3.5-5.2) g/dL Globulin (1.3-4.6) g/dL Urine Color (Yellow) Urine Appearance (CLEAR) Urine pH (5-7) Ur Specific Gravit y (1.005-1.030) Urine Protein (Negative) Urine Glucose (UA) (Normal) Urine Ketones (Negative) Urine Blood (Negative) Urine Nitrate (Negative) Urine Bilirubin (NEGATIVE) Urine Urobilinogen (Negative) mg/dL Ur Leukocyte Yara ase (Negative) Urine RBC (0-2) /hpf Urine WBC (0-5) /hpf Ur Squamous Epith Cells (0-5) Ur Transition Epit h Cell /hpf Urine Bacteria (NONE) Urine Yeast Fluid Color (PALE YELLOW) Fluid Appearance (CLEAR) Fluid WBC u/L Fluid RBC (0-0) 10^3/uL Fld Polynuclear WB Cs # 10^3/uL Fld Polynuclear WB Cs % % Fl Mononucl WBCs # (Auto) 10^3/uL Fl Mononuclear % A uto % Serum Ketones Negative (Negative) Influenza Type A A g (Negative) POC Influenza B Ag (Negative) 08/01/19 08/01/19 08/01/19 Range/Units 18:09 19:21 20:15 WBC (4.0-10.0) 10^3/ uL RBC (4.1-5.3) 10^6/u L Hgb (11.5-15.3) g/dL Hct (37.0-47.0) % MCV (81-99) fL MCH (28.0-34.0) pg MCHC (30.0-36.0) g/dL RDW (12.1-15.1) % Plt Count (130-400) 10^3/c mm MPV (7.4-10.4) fL Neut % (Auto) % Lymph % (Auto) % [place] % (Auto) % Eos % (Auto) % Baso % (Auto) % Neut # (Auto) (1.8-7.7) 10^3/u L Lymph # (Auto) (0.8-4.8) 10^3/u L [place] # (Auto) (0.2-0.9) 10^3/u L Eos # (Auto) (0.0-0.8) 10^3/u L Baso # (Auto) (0.0-0.1) 10^3/u L Nucleated RBC % (a uto) % Nucleated RBCs # /100WBC Differential Comme nt D-Dimer (0-0.59) ug/mIFE U Specimen Type Arterial Sample Site Brachial, right ABG pH 7.51 H (7.35-7.45) ABG pCO2 33.7 L (35-45) mmHg ABG pO2 90.5 (80.0-100.0) mmH g ABG HCO3 26.6 H (22-26) mmol/L ABG Base Excess 3.7 H (-2.0-2.0) mmol/ L Jason Test N/a Hematocrit 41.0 (37-47) % O2 Delivery Device Nc O2 Liters/Min 2.0 % FiO2 28.0 % Damage Cutter ID ed Sodium (136-145) mmol/L Potassium (3.5-5.1) mmol/L Chloride (98-107) mmol/L Carbon Dioxide (22-29) mmol/L Anion Gap (5-19) BUN (6-20) mg/dL Creatinine (0.5-0.9) mg/dL GFR Calculation (90-130) mL/min Glucose (65-115) mg/dL Lactate (0.5-2.2) mmol/L Calcium (8.5-10.5) mg/dL Total Bilirubin (0.15-1.2) mg/dL AST (0-32) U/L ALT (0-33) U/L Alkaline Phosphata se (35-105) IU/L Troponin T Baselin e (0-10) ng/mL Troponin T 120 Min [place] 211.5 H (0-10) ng/mL Delta Troponin T -8.5 L (0-10) ABS# NT-Pro-B Natriuret Pep (0-125) pg/mL Total Protein (6.6-8.7) g/dL Albumin (3.5-5.2) g/dL Globulin (1.3-4.6) g/dL Urine Color (Yellow) Urine Appearance (CLEAR) Urine pH (5-7) Ur Specific Gravit y (1.005-1.030) Urine Protein (Negative) Urine Glucose (UA) (Normal) Urine Ketones (Negative) Urine Blood (Negative) Urine Nitrate (Negative) Urine Bilirubin (NEGATIVE) Urine Urobilinogen (Negative) mg/dL Ur Leukocyte Yara ase (Negative) Urine RBC (0-2) /hpf Urine WBC (0-5) /hpf Ur Squamous Epith Cells (0-5) Ur Transition Epit h Cell /hpf Urine Bacteria (NONE) Urine Yeast Fluid Color (PALE YELLOW) Fluid Appearance (CLEAR) Fluid WBC u/L Fluid RBC (0-0) 10^3/uL Fld Polynuclear WB Cs # 10^3/uL Fld Polynuclear WB Cs % % Fl Mononucl WBCs # (Auto) 10^3/uL Fl Mononuclear % A uto % Serum Ketones (Negative) Influenza Type A A g Negative (Negative) POC Influenza B Ag Negative (Negative) 08/01/19 08/01/19 Range/Units 20:52 21:05 WBC (4.0-10.0) 10^3/ uL RBC (4.1-5.3) 10^6/u L Hgb (11.5-15.3) g/dL Hct (37.0-47.0) % MCV (81-99) fL MCH (28.0-34.0) pg MCHC (30.0-36.0) g/dL RDW (12.1-15.1) % Plt Count (130-400) 10^3/c mm MPV (7.4-10.4) fL Neut % (Auto) % Lymph % (Auto) % [place] % (Auto) % Eos % (Auto) % Baso % (Auto) % Neut # (Auto) (1.8-7.7) 10^3/u L Lymph # (Auto) (0.8-4.8) 10^3/u L [place] # (Auto) (0.2-0.9) 10^3/u L Eos # (Auto) (0.0-0.8) 10^3/u L Baso # (Auto) (0.0-0.1) 10^3/u L Nucleated RBC % (a uto) % Nucleated RBCs # /100WBC Differential Comme nt Yes D-Dimer (0-0.59) ug/mIFE U Specimen Type Sample Site ABG pH (7.35-7.45) ABG pCO2 (35-45) mmHg ABG pO2 (80.0-100.0) mmH g ABG HCO3 (22-26) mmol/L ABG Base Excess (-2.0-2.0) mmol/ L Jason Test Hematocrit (37-47) % O2 Delivery Device O2 Liters/Min % FiO2 % Damage Cutter ID Sodium (136-145) mmol/L Potassium (3.5-5.1) mmol/L Chloride (98-107) mmol/L Carbon Dioxide (22-29) mmol/L Anion Gap (5-19) BUN (6-20) mg/dL Creatinine (0.5-0.9) mg/dL GFR Calculation (90-130) mL/min Glucose (65-115) mg/dL Lactate (0.5-2.2) mmol/L Calcium (8.5-10.5) mg/dL Total Bilirubin (0.15-1.2) mg/dL AST (0-32) U/L ALT (0-33) U/L Alkaline Phosphata se (35-105) IU/L Troponin T Baselin e (0-10) ng/mL Troponin T 120 Min [place]ark[place] (0-10) ng/mL Delta Troponin T (0-10) ABS# NT-Pro-B Natriuret Pep (0-125) pg/mL Total Protein (6.6-8.7) g/dL Albumin (3.5-5.2) g/dL Globulin (1.3-4.6) g/dL Urine Color Yellow (Yellow) Urine Appearance Cloudy (CLEAR) Urine pH 5 (5-7) Ur Specific Gravit y 1.015 (1.005-1.030) Urine Protein 3+ H (Negative) Urine Glucose (UA) 1+ (Normal) Urine Ketones Negative (Negative) Urine Blood 2+ H (Negative) Urine Nitrate Negative (Negative) Urine Bilirubin 1+ H (NEGATIVE) Urine Urobilinogen Norm (Negative) mg/dL Ur Leukocyte Yara ase 2+ H (Negative) Urine RBC 15-25 H (0-2) /hpf Urine WBC Too numerous to c nt H (0-5) /hpf Ur Squamous Epith Cells 55-80 H (0-5) Ur Transition Epit h Cell 10-15 /hpf Urine Bacteria 2+ H (NONE) Urine Yeast 4+ H Fluid Color Colorless (PALE YELLOW) Fluid Appearance Clear (CLEAR) Fluid WBC 13 u/L Fluid RBC 0 (0-0) 10^3/uL Fld Polynuclear WB Cs # 0.000 10^3/uL Fld Polynuclear WB Cs % 0.000 % Fl Mononucl WBCs # (Auto) 0.013 10^3/uL Fl Mononuclear % A uto 100.000 % Serum Ketones (Negative) Influenza Type A A g (Negative) POC Influenza B Ag (Negative) Imaging Data^: CXR: My impression: No acute cardiopulmonary findings. Bilateral atelectasis present. EKG Data^: EKG 1: Attestation: I personally reviewed and interpreted this EKG as follows: EKG interpretation date: 08/01/19 EKG interpretation time: 17:39 Interpretation: Normal sinus rhythm at 77 beats a minute, nonspecific ST-T wave changes, low voltages. EKG 2: Attestation: I personally reviewed and interpreted this EKG as follows: EKG interpretation date: 08/01/19 EKG interpretation time: 19:13 Interpretation: Normal sinus rhythm at 78 beats a minute, nonspecific ST-T wave changes, low voltages, similar to previous. Discharge Plan Discharge Patient Disposition: Admitted As Inpatient Admit Provider: Neeta Jeronimo Clinical Impression: Acute hypotension Condition: Stable Referrals: Yovany Leonardo MD [Primary Care Provider] - Discharge Date/Time: 08/02/19 00:00 Sign Out Sign Out Data: Patient Sign Out occurred on 08/01/19 at 19:17. Patient's care was discussed, and care was transferred from to [facility]. Coding Level of Care Code ED Legal Associate for Chg Fwd Exam Comprehensive
--- NOTE | 2019-08-01 17:12 | PC.NURSE ---
Blood sugar 195
--- NOTE | 2019-08-01 17:18 | XRR_ITS ---
PROCEDURE INFORMATION: Exam: XR Chest, 1 View Exam date and time: 08/01/2019 5:36 PM Age: 54 years old Clinical indication: Other: Weakness; Prior surgery; Surgery date: 6+ months; Surgery type: Stent, date not provided TECHNIQUE: Imaging protocol: XR of the chest Views: 1 view. COMPARISON: CR XR chest 1V portable [id number] 06/30/2019 3:30 PM FINDINGS: Lungs: Mild platelike atelectasis right infrahilar region and left lung base/lingula. Lungs are otherwise well aerated. Pleural space: Unremarkable. No pleural effusion. No pneumothorax. Heart/Mediastinum: Unremarkable. No cardiomegaly. Bones/joints: Unremarkable. XR/XR chest 1V portable [id number] IMPRESSION: Mild platelike atelectasis right infrahilar region and left lung base/lingula. Lungs are otherwise well aerated.
--- NOTE | 2019-08-01 17:21 | ECG_ITS ---
Measurements Intervals [place] Rate: 77 P: -26 [place]: 187 QRS: -83 QRSD: 88 T: -18 QT: 385 QTc: 437 SINUS RHYTHM LOW QRS VOLTAGE IN EXTREMITY LEADS [QRS DEFLECTION < 0.5 mV IN LIMB LEADS] INFERIOR MYOCARDIAL INFARCTION , OF INDETERMINATE AGE [40+ ms Q WAVE AND/OR ST/T ABNORMALITY IN II/aVF] ANTEROLATERAL MYOCARDIAL INFARCTION , OF INDETERMINATE AGE [40+ ms Q WAVE IN I/ I/aVL/V3-V6] Compared to ECG 07/01/2019 03:20:02 Left-axis deviation no longer present Myocardial infarct finding still present Electronically Signed On 08-01-2019 19:46:55 FILTER PRESS PUMPER by Gerald Smith M.D. [id number]
[2019-08-01 17:56] LABS: Basophils % 0.5 %; Eosinophils # 0.2 10^3/uL (0.0-0.8); Eosinophils % 2.4 %; Hematocrit 31.5 % (37.0-47.0); Hemoglobin 10.4 g/dL (11.5-15.3); Lymphocytes # 1.2 10^3/uL (0.8-4.8); Lymphocytes % 19.9 %; Mean Corpuscular Hemoglobin 33.4 pg (28.0-34.0); Mean Corpuscular Volume 101.3 fL (81-99); Mean Platelet Volume 10.8 fL (7.4-10.4); Monocytes # 0.5 10^3/uL (0.2-0.9); Monocytes % 8.7 %; Neutrophils # 4.2 10^3/uL (1.8-7.7); Neutrophils % 67.7 %; Nucleated Red Blood Cells % 0 %; Platelet Count 196 10^3/cmm (130-400); Red Blood Count 3.11 10^6/uL (4.1-5.3); White Blood Count 6.2 10^3/uL (4.0-10.0)
--- NOTE | 2019-08-01 18:10 | PC.NURSE ---
Patient denies any specific symptoms. States home health nurse found blood pressure to be low and advised her to be seen in the ED today.
[2019-08-01 18:19] LABS: D Dimer 0.77 ug/mIFEU (0-0.59)
[2019-08-01 18:20] LABS: Alanine Aminotransferase 15 U/L (0-33); Alkaline Phosphatase 127 IU/L (35-105); Anion Gap 18.3 (5-19); Aspartate Amino Transferase 21 U/L (0-32); Blood Urea Nitrogen 48 mg/dL (6-20); Calcium 10.1 mg/dL (8.5-10.5); Carbon Dioxide 25 mmol/L (22-29); Chloride 85 mmol/L (98-107); Globulin 3.8 g/dL (1.3-4.6); Glomerular Filtration Rate 4.5 mL/min (90-130); Glucose 225 mg/dL (65-115); NT Pro B Type Natriuretic Pept 2202 pg/mL (0-125); Potassium 4.3 mmol/L (3.5-5.1); Sodium 124 mmol/L (136-145); Total Bilirubin 0.4 mg/dL (0.15-1.2); Total Protein 6.8 g/dL (6.6-8.7)
[2019-08-01 18:21] LABS: ABG PCO2 33.7 mmHg (35-45); ABG PH Result 7.51 (7.35-7.45); Base Excess ABG 3.7 mmol/L (-2.0-2.0); Blood Gas Sample Site Brachial, right; Blood Gas Sample Type Arterial; HCO3 ABG 26.6 mmol/L (22-26); Oxygen Device NC; PO2 ABG 90.5 mmHg (80.0-100.0)
[2019-08-01 18:35] LABS: Troponin(5th) Baseline 220 ng/mL (0-10)
--- NOTE | 2019-08-01 18:36 | PC.NURSE ---
Troponin base line [address] peoples informed.
--- NOTE | 2019-08-01 19:21 | ECG_ITS ---
Measurements Intervals [place] Rate: 78 P: -29 [place]: 193 QRS: -49 QRSD: 89 T: -17 QT: 383 QTc: 437 SINUS RHYTHM LEFT AXIS DEVIATION [QRS AXIS < -30] LOW QRS VOLTAGE IN EXTREMITY LEADS [QRS DEFLECTION < 0.5 mV IN LIMB LEADS] ANTERIOR MYOCARDIAL INFARCTION , PROBABLY OLD [40+ ms Q WAVE AND/OR ST/T ABN ABNORMALITY IN V3/V4] INFERIOR MYOCARDIAL INFARCTION , OF INDETERMINATE AGE [40+ ms Q WAVE AND/OR ST/T ABNORMALITY IN II/aVF] Compared to ECG 08/01/2019 17:39:54 Left-axis deviation now present Myocardial infarct finding still present Electronically Signed On 08-02-2019 15:19:12 CABANA ATTENDANT by Manny Tan M.D. [id number]
[2019-08-01] MEDS: sodium chloride 0.9% 1,000 ML 999 ML IV (19:36)
--- NOTE | 2019-08-01 19:36 | XRR_ITS ---
PROCEDURE INFORMATION: Exam: XR Left Foot Complete Exam date and time: 08/01/2019 7:56 PM Age: 54 years old Clinical indication: Other: Infection; Patient HX: PT was poor historian TECHNIQUE: Imaging protocol: XR Left foot. Views: 3 or more views. COMPARISON: CR Foot 3 views, LEFT* [id number] 09/13/2018 3:40 PM FINDINGS: Bones/joints: Hindfoot -midfoot and midfoot-forefoot articulations normal. Metatarsals and phalanges without an acute process. Subtalar and tibiotalar joint normal. degenerative changes at the first metatarsal phalangeal joint. Mild. Amputation of the 5th ray at the level of the metatarsal phalangeal joint. large spur formation at the insertion of the plantar aponeurosis. Soft tissues: Normal. XR/XR foot LT min 3V* [id number] IMPRESSION: 1. Degenerative changes at the first metatarsal phalangeal joint. Mild. 2. Amputation of the 5th ray at the level of the metatarsal phalangeal joint. Mild soft tissue prominence. No evidence of osteomyelitis. 3. Large spur formation at the insertion of the plantar aponeurosis.
[2019-08-01] MEDS: sodium chloride 0.9% 1,000 ML 100 ML IV (19:44)
[2019-08-01 20:01] LABS: Ketone (Acetest) Serum Negative (Negative)
[2019-08-01 20:01] LABS: Troponin 5 2HR Delta -8.5 ABS# (0-10)
[2019-08-01 20:02] LABS: Troponin 5 2HR 211.5 ng/mL (0-10)
--- NOTE | 2019-08-01 20:03 | PC.NURSE ---
Addendum entered by Grace Aguirre RN 08/01/19 20:04: 2hr trop Original Note: Mi in lab called to report a crtical trop of 211.5.
[2019-08-01] MEDS: SODIUM CHLORIDE 0.9% 2980.1 ML IV (20:07)
[2019-08-01] MEDS: piperacillin-tazobactam 3.375 GM in sodium chloride 0.9% (plus) 50 ML IV (20:07)
[2019-08-01 20:42] LABS: Influenza A by IFA Negative (Negative); Influenza B by IFA Negative (Negative)
[2019-08-01 21:29] LABS: Bilirubin Urine 1+ (NEGATIVE); Blood Urine 2+ (Negative); Glucose Urine UA 1+ (Normal); Ketones Urine Negative (Negative); Leukocyte Esterase Urine 2+ (Negative); Nitrate Urine Negative (Negative); Protein Urine 3+ (Negative); Specific Gravity, Urine 1.015 (1.005-1.030); Urine Appearance Cloudy (CLEAR); Urine Color Yellow (Yellow); Urobilinogen Urine Norm (Negative); pH Urine 5 (5-7)
[2019-08-01 21:31] LABS: RBC Urine 15-25 /hpf (0-2); WBC Urine TOO NUMEROUS TO CNT /hpf (0-5)
[2019-08-01 21:32] LABS: Add Urine Culture? No; Bacteria Urine 2+; Squamous Epithelial Cell Urine 55-80 (0-5)
[2019-08-01 21:36] LABS: Body Fluid WBC 13 u/L; Monocytes # Body Fluid 0.013 10^3/uL; RBC, Body Fluid 0 10^3/uL (0-0)
--- NOTE | 2019-08-01 21:40 | PC.NURSE ---
Normal Saline (sepsis bolus) titrated to 150mL/hr per verbal order per Dr. Mix
[2019-08-01 21:48] LABS: Apprearance, Body Fluid CLEAR (CLEAR); Color, Body Fluid COLORLESS (PALE YELLOW); PATH Referral YES
[2019-08-01 22:50] LABS: Glucose Urine UA 2+ (Normal); Ketones Urine Negative (Negative); Protein Urine 3+ (Negative); Specific Gravity, Urine 1.015 (1.005-1.030); Urine Appearance Cloudy (CLEAR); Urine Color Yellow (Yellow); pH Urine 5 (5-7)
[2019-08-01 22:51] LABS: Bilirubin Urine 1+ (NEGATIVE); Blood Urine 2+ (Negative); Leukocyte Esterase Urine Negative (Negative); Nitrate Urine Negative (Negative); Urobilinogen Urine Norm (Negative)
[2019-08-01 23:17] LABS: RBC Urine 15-25 /hpf (0-2); Squamous Epithelial Cell Urine 40-55 (0-5); WBC Urine TOO NUMEROUS TO CNT /hpf (0-5)
[2019-08-01 23:18] LABS: Add Urine Culture? No; Bacteria Urine 1+
--- NOTE | 2019-08-01 23:21 | ECG_ITS ---
Measurements Intervals [place] Rate: 74 P: -25 [place]: 191 QRS: -58 QRSD: 90 T: -38 QT: 384 QTc: 427 SINUS RHYTHM LEFT AXIS DEVIATION [QRS AXIS < -30] LOW QRS VOLTAGE IN EXTREMITY LEADS [QRS DEFLECTION < 0.5 mV IN LIMB LEADS] ANTERIOR MYOCARDIAL INFARCTION , OF INDETERMINATE AGE [40+ ms Q WAVE AND/OR ST/T ABNORMALITY IN V3/V4] INFERIOR MYOCARDIAL INFARCTION , OF INDETERMINATE AGE [40+ ms Q WAVE AND/OR ST/T ABNORMALITY IN II/aVF] Compared to ECG 08/01/2019 17:39:54 Left-axis deviation now present Myocardial infarct finding still present Electronically Signed On 08-02-2019 15:20:23 BAR MANAGER by Manny Tan M.D. [email or web address]
--- NOTE | 2019-08-01 23:24 | PC.NURSE ---
Called report to Kathryn on
--- NOTE | 2019-08-01 23:32 | PM.HP ---
Providers/Chief Complaint Admitting Physician: Neeta Jeronimo MD Primary Care Provider: Yovany Leonardo MD Chief Complaint: HYPOTENSION History of Present Illness Rizwana Herzog is a 54 year old female who presented to the emergency room feeling dizzy and very tired. She has a history of chronic kidney disease on peritoneal dialysis. She is also had issues with peripheral vascular disease having had a BKA last November and recent partial foot amputation. She was hospitalized here in June. During that timeframe she was having issues with persistent hypotension, persistent GI symptoms in addition to a wound on her left foot. She was transferred to [facility] for further evaluation where her warp drawer was as well as with possible GI involvement. She tells me that she ended up having partial amputation of her left foot at that time. She cannot really give me any other details. She was discharged to [place] rehab and was released from [place] last Wednesday. She reports that when she was at [place] she still occasionally had low blood pressures but not near as bad. She denies any changes to her medications at discharge from [place] other than decreasing her dose of metoprolol. She has been on metoprolol at a decreased dose and continued on isosorbide. She is also chronically on bumetanide. She denies any changes in her peritoneal dialysis. She had been seen by home health today to address her left foot surgical wounds. I am not sure what blood pressures were at home specifically but she does report they were low. Here in the emergency room, blood pressures were noted to be in the upper 60s and low 70s at the lowest per the ED provider. She has responded to fluids thus far. She was covered with antibiotics empirically. Given the significant hypotension she is being admitted for further evaluation and treatment. Review of Systems Const: Reports: fatigue and malaise; Denies: fever, chills or diaphoresis Eyes: Denies: change in vision ENMT: Reports: dry mouth and disequilibrium; Denies: throat pain, tinnitus or nasal congestion Card: Reports: shortness of breath on exertion; Denies: chest pain, palpitations or edema (No recent change) Resp: Denies: productive cough, non-productive cough or wheezing GI: Reports: nausea; Denies: abdominal pain, vomiting, difficulty swallowing, diarrhea, constipation or blood in stool : Reports: other (Only makes a little bit of urine daily); Denies: difficulty urinating, painful urination, urinary frequency or urinary urgency Musc: Reports: redness (Around the wounds on the left foot) and other (Some discomfort right distal tibia. Some trouble walking since partial foot amputation) Skin/Breast: Reports: sores (Right third toe and second toe where she hit it on something in rehab) and other (Surgical wounds healing well to left foot, stitches still in place) Neuro: Reports: headache, numbness in extremities, difficulty walking, dizziness and other (No new neurological findings beyond the dizziness); Denies: frequent falls Psych: Reports: depression Refugio/Lymph: Denies: easy bruising or easy bleeding Medications/Allergies Home Medications Medication Instructions Recorded Confirmed Last Taken Type Lantus U-100 Insulin See Rx Instructions .ROUTE .COMPLEX 08/01/19 08/01/19 07/31/19 History acetaminophen 650 mg PO Q4H PRN 08/01/19 08/01/19 Unknown History famotidine 40 mg PO BID 08/01/19 08/01/19 08/01/19 History gentamicin 1 applic TOPICAL QID 08/01/19 08/01/19 08/01/19 History insulin glargine [Lantus U-100 See Rx Instructions .ROUTE .COMPLEX 08/01/19 08/01/19 08/01/19 History Insulin] nitroglycerin 0.4 mg SUBLINGUAL Q5M PRN 08/01/19 08/01/19 Unknown History sevelamer carbonate [Renvela] 800 mg PO TID 08/01/19 08/01/19 08/01/19 History tramadol 50 mg PO DAILY PRN 08/01/19 08/01/19 Unknown History Allergies Allergy/AdvReac Type Severity Reaction Status Date / Time metformin [From Glucophage] Allergy Unknown Verified 06/30/19 16:44 venlafaxine [From Effexor] Allergy ADR-Shakine Verified 06/30/19 16:44 ss Additional Medication Information Additional Medication Information: Home Medications Medication Instructions Recorded Confirmed Type aspirin 81 mg PO DAILY 06/25/19 08/01/19 History atorvastatin 40 mg PO DAILY 06/25/19 08/01/19 History clopidogrel 75 mg PO DAILY 06/25/19 08/01/19 History isosorbide mononitrate 30 mg PO DAILY 06/25/19 08/01/19 History levothyroxine 224 mcg PO DAILY 06/25/19 08/01/19 History metoprolol succinate 25 mg PO DAILY 06/25/19 08/01/19 History pantoprazole 40 mg PO DAILY 06/25/19 08/01/19 History bumetanide 1 mg PO BID 06/30/19 08/01/19 History levofloxacin 250 mg PO DAILY 06/30/19 08/01/19 History multivitamin [Multiple Vitamins] 1 tab PO DAILY 06/30/19 08/01/19 History paricalcitol [Zemplar] See Rx Instructions .ROUTE .COMPLEX 06/30/19 08/01/19 History Lantus U-100 Insulin See Rx Instructions .ROUTE .COMPLEX 08/01/19 08/01/19 History acetaminophen 650 mg PO Q4H PRN 08/01/19 08/01/19 History famotidine 40 mg PO BID 08/01/19 08/01/19 History gentamicin 1 applic TOPICAL QID 08/01/19 08/01/19 History insulin glargine [Lantus U-100 See Rx Instructions .ROUTE .COMPLEX 08/01/19 08/01/19 History Insulin] nitroglycerin 0.4 mg SUBLINGUAL Q5M PRN 08/01/19 08/01/19 History sevelamer carbonate [Renvela] 800 mg PO TID 08/01/19 08/01/19 History tramadol 50 mg PO DAILY PRN 08/01/19 08/01/19 History PFSH Acute PFSH: Medical History Anxiety CAD (coronary artery disease) Chronic diastolic CHF (congestive heart failure) Chronic kidney disease, stage V On peritoneal dialysis. Follows with Dr Ann. Depression Diabetes Insulin-dependent Gastroparesis GERD (gastroesophageal reflux disease) HTN (hypertension) Hyperlipidemia Hypothyroidism Partial nontraumatic amputation of left foot (~06/2019) Peripheral vascular disease TIA (transient ischemic attack) Vitamin D deficiency Surgical History History of appendectomy History of heart artery stent History of hysterectomy History of left heart catheterization History of right below knee amputation Peritoneal dialysis catheter in place Family History Denies family history of CAD (coronary artery disease) Clotting disorder Dementia Bleeding disorder Social History Smoking and tobacco status: never smoked Alcohol intake: never Household members: spouse and family Vitals/I&O/Wt Last Vital Signs Temp 97.9 F 08/01/19 17:00 Pulse 78 08/01/19 22:56 Resp 18 08/01/19 22:56 BP 112/69 08/01/19 22:56 Pulse Ox 99 08/01/19 22:56 08/01/19 08/01/19 08/02/19 14:59 22:59 06:59 Intake Total 4030.11 / 4030.11 500 / 4530.11 Balance 4030.11 / 4030.11 500 / 4530.11 Weight last 48 hrs Weight 99.337 kg Physical Exam Const: COMMON NORMALS: oriented x3 and alert (But keeps her eyes closed, looks sleepy) HENMT: HEAD & SCALP: normocephalic and atraumatic Eye: COMMON NORMALS: PERRL and EOMs intact bilaterally Neck/C-Spine: COMMON NORMALS: supple Resp: COMMON NORMALS: normal respiratory effort, no use of accessory muscles and clear to auscultation bilaterally Cardio: COMMON NORMALS: regular rate, no gallops, no murmurs and no rub RATE: regular rate GI: COMMON NORMALS: normal to inspection, nondistended, normoactive bowel sounds, soft to palpation and non-tender OTHER: PD catheter intact Back/Pelvis: COMMON NORMALS: no CVA tenderness Extremity: NARRATIVE EXTREMITY EXAM: Slivers removed from the right BKA. Patient has some tenderness at the distal tibia anteriorly with some old healed scars from surgical procedure. No areas of erythema noted. There is some hyperpigmentation at pressure points but nothing that looks particularly concerning. She has an ecchymotic-like scar of on her knee on the right. In terms of the left foot, she has had the fifth toe removed. Sutures are in place around the area. Wound is dry. Dressing is clean and intact when I removed it. No odor. No drainage. There is some surrounding erythema about a centimeter and 1/2 to 2 cm diameter around the core wound. It really looks like the skin in this area has been desquamated more so than the rest of the foot. Area of erythema was marked. Patient has 2 small wounds to the second and third toes on the left foot which are also marked with a skin marker. Neuro: COMMON NORMALS: oriented x3 and moves all extremities SENSORIUM/ORIENTATION: Yes alert Psych: COMMON NORMALS: cooperative MOOD & AFFECT: Yes flat affect Data : 08/01/19 17:48 08/01/19 17:48 Other Labs: Short CBC 08/01/19 08/01/19 Range/Units 17:48 17:48 WBC 6.2 (4.0-10.0) 10^3/uL Hgb 10.4 L (11.5-15.3) g/dL Hct 31.5 L (37.0-47.0) % Plt Count 196 (130-400) 10^3/cmm NT-Pro-B Natriuret Pep 2202 H (0-125) pg/mL BMP 08/01/19 17:48 Sodium 124 L Potassium 4.3 Chloride 85 L Carbon Dioxide 25 BUN 48 H Creatinine 9.1 H* Glucose 225 H Calcium 10.1 Liver Function 08/01/19 Range/Units 17:48 Total Bilirubin 0.4 (0.15-1.2) mg/dL AST 21 (0-32) U/L ALT 15 (0-33) U/L Alkaline Phosphatase 127 H (35-105) IU/L Albumin 3.0 L (3.5-5.2) g/dL Urine 08/01/19 08/01/19 Range/Units 21:05 22:38 Urine Color Yellow Yellow (Yellow) Urine Appearance Cloudy Cloudy (CLEAR) Urine pH 5 5 (5-7) Ur Specific [place] 1.015 1.015 (1.005-1.030) Urine Protein 3+ H 3+ H (Negative) Urine Glucose (UA) 1+ 2+ (Normal) Micro: Microbiology 08/01/19 17:48 Blood Culture - Preliminary Blood SPECIMEN COLLECTED 08/01/19 18:28 Blood Culture - Preliminary Blood SPECIMEN COLLECTED A&P Assessment and plan (1) Acute hypotension: Recurrent issue. Could have an autonomic neuropathy as a contributing factor. Do not get a strong sense of an acute infection but she does have an abnormal urinalysis. Does not make very much urine so a limited ability to evaluate. Treated as possibly septic in the emergency room however with normal white count, normal differential and lack of other findings to be in the low blood pressure I think this is less likely. They did check peritoneal fluid and it was clear. Cultures have been sent as had blood cultures. She has known peripheral vascular disease as well as a history of coronary artery disease. Plan at last hospital discharge was to consider cardiac stress test in the near future for further evaluation of a possible contributor to the hypotension. She could have had some changes and medications lately. It would be good to have an idea of what she had been on at [facility] as well as [facility]. Volume shifts related to her dialysis are another consideration. Patient has been symptomatic the last 24 hours-with dizziness and increased fatigue/sleepiness - from the hypotension and was noted to be as low as 70 systolic in the emergency room. Status: Acute Code(s): I95.9 - Hypotension, unspecified (2) Chronic kidney disease, stage V: On peritoneal dialysis. Does a 9-hour cycle on a machine at night usually. Status: Chronic Code(s): N18.5 - Chronic kidney disease, stage 5 (3) CAD (coronary artery disease): Denies recent chest pain. Or significant problems with increasing shortness of breath. She has a baseline elevation in troponin but delta was negative. Status: Chronic Qualifiers: Coronary Disease-Associated Artery/Lesion type: [place] artery [place] vs. transplanted heart: [place] heart Associated angina: without angina Qualified Code(s): I25.10 - Atherosclerotic heart disease of [place] coronary artery without angina pectoris Code(s): I25.10 - Atherosclerotic heart disease of [place] coronary artery without angina pectoris (4) Chronic diastolic CHF (congestive heart failure): Has chronic BNP elevation. Clinically does not appear total body volume overloaded presently. Status: Acute Code(s): I50.32 - Chronic diastolic (congestive) heart failure (5) Diabetes: Insulin-dependent. Last hemoglobin A1c I can see is from 2018 when it was 7.8. Status: Acute Qualifiers: Diabetes mellitus type: type 2 Diabetes mellitus longterm insulin use: with intermodal dispatcher use Diabetes mellitus complication status: with neurologic complications Diabetes mellitus complication detail: with polyneuropathy Qualified Code(s): E11.42 - Type 2 diabetes mellitus with diabetic polyneuropathy; Z79.4 - senior living (current) use of insulin Code(s): E11.9 - Type 2 diabetes mellitus without complications (6) Partial nontraumatic amputation of left foot: Done in June. Still has sutures in place. Some erythema but I think it is probably just from some cleaning of the wound that was done today by home health. I did lance the area. Wound looks to be healing well. No significant odor. Status: Acute Code(s): Z89.432 - Acquired absence of left foot (7) Hypothyroidism: Chronically on levothyroxine Status: Acute Qualifiers: Hypothyroidism type: acquired Qualified Code(s): E03.9 - Hypothyroidism, unspecified Code(s): E03.9 - Hypothyroidism, unspecified (8) Hyperlipidemia: Chronically on statin Status: Acute Qualifiers: Hyperlipidemia type: unspecified Qualified Code(s): E78.5 - Hyperlipidemia, unspecified Code(s): E78.5 - Hyperlipidemia, unspecified Additional A&P Information Inpatient admission We will continue a little bit of fluids overnight, monitoring blood pressures, no indication thus far for any pressor support Hold isosorbide, metoprolol and bumetanide presently secondary to low blood pressures Nephrology consultation for peritoneal dialysis >> call placed while patient was still in the emergency room Received doses of vancomycin and Zosyn in the emergency room. These were given empirically for possibility of UTI based on urine specimen collected. Patient had significant number of epithelial cells making it challenging to ascertain the accuracy of the specimen. It was reportedly collected as in and out cath. Patient does not report any urinary symptoms to speak of. Will continue on Zosyn for the time being given her recent history and the fact that antibiotics have already been started >> that should cover the last organisms identified from urine culture on June 26. She had a wound culture done of her foot on June 16 that was polymicrobial. We will see if we have any results from what ever was collected at [facility] when they did surgery before addressing anything in this regards further. The wound actually looks like it is healing well. We will not continue vancomycin at the moment Lab is have difficulty drawing blood. Hopefully after some fluids it will be a bit easier Records have been requested from [facility] and [place] Insulin for diabetes Continue levothyroxine Continue home aspirin, statin, Plavix Renal dosing of Pepcid Other home medications as ordered Subcu heparin for DVT prophylaxis Add lactobacillus, on review of available record she has been on a lot of antibiotics lately Supportive care otherwise Plans were discussed with patient and she was given an opportunity to ask questions Plan is for discharge home when medically stable. I am a bit concerned about the fact that she has required admission just a few days after being discharged from rehab but need to get a bit more information before we can before making any decisions. Full code Attestations Medical Necessity Statement*: Anticipated stay greater than 2 midnights in a patient with recurrent hypotension and comorbid conditions as noted above. Treated initially as possible infection in the ED and has multiple potential sources including recent surgical intervention on her left foot, chronic PD catheter, abnormal urinalysis and the like. I suspect that this is going to be medication related, possibly in conjunction with autonomic neuropathy either contributing directly to development of hypotension itself or indirectly through gastroparesis impacting release of medications. Nevertheless she has had cultures drawn which will require 48 hours of monitoring to ensure negativity. Coding Level of Care Code Acute [employer] Counter Associate for Maris Braden Diagnoses Acute hypotension I95.9 Chronic kidney disease, stage V N18.5 CAD (coronary artery disease) I25.10 Coronary Disease-Associated Artery/Lesion type: [place] artery [place] vs. transplanted heart: [place] heart Associated angina: without angina Chronic diastolic CHF (congestive heart failure) I50.32 Diabetes E11.42; Z79.4 Diabetes mellitus type: type 2 Diabetes mellitus longterm insulin use: with intermodal dispatcher use Diabetes mellitus complication status: with neurologic complications Diabetes mellitus complication detail: with polyneuropathy Partial nontraumatic amputation of left foot Z89.432 Hypothyroidism E03.9 Hypothyroidism type: acquired Hyperlipidemia E78.5 Hyperlipidemia type: unspecified
[2019-08-02] VITALS (34 sets, daily range): BP systolic 62–142; BP diastolic 44–83; PULSE 64–76; RESP 16–18; TEMP 36.4–37; O2SAT 94–99
[2019-08-02] MEDS: sodium chloride 0.9% 1,000 ML 150 ML IV (00:52)
[2019-08-02] MEDS: morphine 4 mg/mL SDV 1 mL IVP (02:59)
[2019-08-02] MEDS: sodium chloride 0.9% 1,000 ML 75 ML IV (03:22)
[2019-08-02] MEDS: heparin 5,000 unit/mL INJ 1 mL 5000 UNIT SUBCUT ×2 (03:23→15:33)
[2019-08-02] MEDS: sodium chloride 0.9% 250 ML IV (05:25)
[2019-08-02 06:29] LABS: Glucose Point of Care 137 mg/dL (70-110)
[2019-08-02 08:14] LABS: Hematocrit 28.9 % (37.0-47.0); Hemoglobin 9.2 g/dL (11.5-15.3); Mean Corpuscular HGB Conc 31.8 g/dL (30.0-36.0); Mean Corpuscular Hemoglobin 34.6 pg (28.0-34.0); Platelet Count 161 10^3/cmm (130-400); Red Blood Count 2.66 10^6/uL (4.1-5.3); Red Cell Distribution Width 15.1 % (12.1-15.1); White Blood Count 4.7 10^3/uL (4.0-10.0)
[2019-08-02 08:31] LABS: Anion Gap 14.3 (5-19); Blood Urea Nitrogen 44 mg/dL (6-20); Calcium 9.2 mg/dL (8.5-10.5); Carbon Dioxide 24 mmol/L (22-29); Chloride 95 mmol/L (98-107); Glomerular Filtration Rate 5.1 mL/min (90-130); Glucose 121 mg/dL (65-115); Magnesium 1.8 mg/dL (1.7-2.3); Osmolality Calculated 267 mOsm/kg (285-295); Phosphorus 4.3 mg/dL (2.5-4.5); Potassium 4.3 mmol/L (3.5-5.1); Sodium 129 mmol/L (136-145)
[2019-08-02 08:46] LABS: Absolute Eosinophils 0.2 10^3/cmm (0.0-0.7); Absolute Segmented Neutrophil 2.9 10/cmm (1.6-7.1); Band Neutrophils Absolute 0.2 10^3/cmm (0.0-1.2); Basophils Absolute 0.1 10^3/cmm (0.0-0.2); Eosinophils 5 %; Lymphocytes 19 %; Mean Corpuscular Volume 104.5 fL (81-99); Monocytes Absolute 0.3 10^3/cmm (0.1-0.6); Platelet Estimate Normal (Normal); Segmented Neutrophils 62 %; Total Cells Counted 100 (0-100)
[2019-08-02] MEDS: piperacillin-tazobactam 3.375 GM in sodium chloride 0.9% (plus) 50 ML IV ×2 (08:51→21:53)
[2019-08-02] MEDS: sevelamer 800 mg Tablet PO ×3 (08:52→21:53)
[2019-08-02] MEDS: lactobacillus 1 Tablet 1 TAB PO ×2 (08:52→17:23)
[2019-08-02] MEDS: aspirin 81 mg Chew Tablet PO (08:52)
[2019-08-02] MEDS: clopidogrel 75 mg Tablet PO (08:52)
[2019-08-02] MEDS: famotidine 20 mg Tablet PO (08:52)
[2019-08-02] MEDS: insulin glargine 100 units/1 mL 15 UNIT SUBCUT ×2 (08:52→21:54)
[2019-08-02] MEDS: atorvastatin 40 mg Tablet PO (08:52)
[2019-08-02] MEDS: levothyroxine 112 mcg Tablet 224 MCG PO (08:53)
--- NOTE | 2019-08-02 09:10 | USCV_ITS ---
Mino Rizwana Age: 54 Gender: F : 1965 Exam Date: 08/02/2019 18:28 Ordering Phys: Maikol Lemos MD Technologist: Kasandra Lyles Exam Location: [facility] [place] Indication: ELEV TROPONIN BP: 86 / 58 HR: 74 Rhythm: Sinus Technical Quality: LTD VIEWS DUE TO TUBES AND POSITION MEASUREMENTS (Male / Female) Normal Values 2D ECHO LV Diastolic Diameter PLAX 3.8 cm 4.2 - 5.9 / 3.9 - 5.3 cm LV Systolic Diameter PLAX 2.2 cm LV Chamber Size 5.5 cm IVS Diastolic Thickness 1.6 cm 0.6 - 1.0 / 0.6 - 0.9 cm IVS Systolic Thickness 1.7 cm LVPW Diastolic Thickness 2.3 cm 0.6 - 1.0 / 0.6 - 0.9 cm LVPW Systolic Thickness 2.4 cm RV Chamber Size 3.5 cm LVOT Diameter 2.1 cm LV Ejection Fraction 2D Teich 73.7 % LA Diameter 4.3 cm Aorta at Sinotubular Diameter 2.7 cm M-MODE LV Diastolic Diameter MM 4.6 cm 4.2 - 5.9 / 3.9 - 5.3 cm LV Systolic Diameter MM 3.1 cm LV Ejection Fraction MM Teich 62.5 % IVS Diastolic Thickness MM 1.3 cm 0.6 - 1.0 / 0.6 - 0.9 cm IVS Systolic Thickness MM 1.4 cm LVPW Diastolic Thickness MM 1.0 cm 0.6 - 1.0 / 0.6 - 0.9 cm LVPW Systolic Thickness MM 1.7 cm Aortic Annulus Diameter 3.1 cm LA Ao Ratio MM 1.4 MV E Point Septal Separation 0.8 cm DOPPLER AV Peak Velocity 134.0 cm/s LVOT Peak Velocity 75.0 cm/s AV Area Cont Eq vti 1.9 cm squared AV Area Cont Eq pk 1.9 cm squared MV Area PHT 2.8 cm squared Mitral E to A Ratio 1.2 MV E' Velocity 12.0 cm/s Mitral E to MV E' Ratio 6.6 Mitral E to LV E' Lateral Ratio 5.6 Mitral E to LV E' Septal Ratio 8.2 TR Peak Velocity 272.0 cm/s TR Peak Gradient 29.7 mmHg TV Peak E Velocity 102.0 cm/s Right Atrial Pressure 3.0 mmHg Pulmonary Artery Systolic Pressu 32.6 mmHg PV Peak Velocity 112.0 cm/s RV Acceleration Time 0.1 s RV Ejection Time 0.4 s RV AcT/ET 0.2 FINDINGS Left Ventricle Normal left ventricular cavity size. Normal left ventricular systolic function. Left ventricular ejection fraction is estimated at 60 %. This study is inadequate for estimation of regional wall motion abnormality given poor ultrasonic windows. Right Ventricle Normal right ventricular size and systolic function. Right ventricular systolic pressure 32.6 mmHg. Right Atrium Right atrium not well visualized. Left Atrium Left atrium not well visualized. Mitral Valve Mitral valve not well visualized. Thickened mitral valve. Aortic Valve Aortic valve not well visualized. No aortic valve stenosis. Tricuspid Valve Tricuspid valve not well visualized. Pulmonic Valve Pulmonic valve not well visualized. Trace pulmonary valve regurgitation. Pericardium No pericardial effusion. Aorta Normal size aortic root and proximal ascending aorta. CONCLUSIONS 1. This is a technically very difficult study with limited views. 2. Normal left ventricular cavity size and systolic function. Left ventricular ejection fraction is estimated at 60 %. This study is inadequate for estimation of regional wall motion abnormality given poor ultrasonic windows. 3. Normal right ventricular size and systolic function. 4. Pulmonary artery pressure estimated at 33 mmHg. 5. When compared to previous echocardiogram dated 09/29/2018, there may not have been any significant change. Soraya Ignacio MD (Electronically Signed) Final Date: 03 August 2019 17:59 S
--- NOTE | 2019-08-02 10:50 | P.CONIM_ITS ---
Providers/Reason For Consult Consulting Physican/Specialty*: Ashleigh Scruggs DO, telenephrology Reason for Consult*: ESRD Attending Physician: Maikol Lemos MD Primary Care Provider: Yovany Leonardo MD History of Present Illness History of Present Illness Rizwana Herzog is a 54 year old female who presented from [facility] due to hypotension. She is on CAPD and has wound left foot Review of Systems General: Reports: other (slow to answer questions, feels very weak, did eat 1/2 of breakfast) Meds/Allergies Home Medications and Allergies Home Medications Medication Instructions Recorded Confirmed Type aspirin 81 mg PO DAILY 06/25/19 08/01/19 History atorvastatin 40 mg PO DAILY 06/25/19 08/01/19 History clopidogrel 75 mg PO DAILY 06/25/19 08/01/19 History isosorbide mononitrate 30 mg PO DAILY 06/25/19 08/01/19 History levothyroxine 224 mcg PO DAILY 06/25/19 08/01/19 History metoprolol succinate 25 mg PO DAILY 06/25/19 08/01/19 History pantoprazole 40 mg PO DAILY 06/25/19 08/01/19 History bumetanide 1 mg PO BID 06/30/19 08/01/19 History levofloxacin 250 mg PO DAILY 06/30/19 08/01/19 History multivitamin [Multiple Vitamins] 1 tab PO DAILY 06/30/19 08/01/19 History paricalcitol [Zemplar] See Rx Instructions .ROUTE .COMPLEX 06/30/19 08/01/19 History Lantus U-100 Insulin See Rx Instructions .ROUTE .COMPLEX 08/01/19 08/01/19 History acetaminophen 650 mg PO Q4H PRN 08/01/19 08/01/19 History famotidine 40 mg PO BID 08/01/19 08/01/19 History gentamicin 1 applic TOPICAL QID 08/01/19 08/01/19 History insulin glargine [Lantus U-100 See Rx Instructions .ROUTE .COMPLEX 08/01/19 08/01/19 History Insulin] nitroglycerin 0.4 mg SUBLINGUAL Q5M PRN 08/01/19 08/01/19 History sevelamer carbonate [Renvela] 800 mg PO TID 08/01/19 08/01/19 History tramadol 50 mg PO DAILY PRN 08/01/19 08/01/19 History Allergies Allergy/AdvReac Type Severity Reaction Status Date / Time metformin [From Glucophage] Allergy Unknown Verified 06/30/19 16:44 venlafaxine [From Effexor] Allergy ADR-Shakine Verified 06/30/19 16:44 ss Current Medications Current Medications Generic Name Dose Route Start Last Admin Trade Name Freq PRN Reason Stop Dose Admin Aspirin 81 mg 08/02/19 09:00 08/02/19 08:52 Aspirin Chewable PO 81 mg DAILY JERSON Administration Atorvastatin Calcium 40 mg 08/02/19 09:00 08/02/19 08:52 Lipitor PO 40 mg DAILY JERSON Administration Clopidogrel Bisulfate 75 mg 08/02/19 09:00 08/02/19 08:52 Plavix PO 75 mg DAILY JERSON Administration Famotidine 20 mg 08/02/19 09:00 08/02/19 08:52 Pepcid Tab PO 20 mg DAILY JERSON Administration Heparin Sodium (Beef Lung) 5,000 unit 08/02/19 03:15 08/02/19 03:23 Heparin SUBCUT 5,000 unit Q12H JERSON Administration Sodium Chloride 1,000 mls @ 75 mls/hr 08/02/19 03:15 08/02/19 03:22 Sodium Chloride 0.9% IV 08/02/19 13:14 75 mls/hr .[id number] JERSON Administration Piperacillin Sod/Tazobactam 50 mls @ 12.5 mls/hr 08/02/19 08:00 08/02/19 08:51 Sod 3.375 gm/ Sodium Chloride IV 12.5 mls/hr Q12H JERSON Administration Protocol Insulin Aspart 0 unit 08/02/19 08:00 08/02/19 07:33 Novolog SUBCUT Not Given TIDWM [facility] Protocol Insulin Glargine 15 unit 08/02/19 08:00 08/02/19 08:52 Lantus SUBCUT 15 unit BID@08,20 JERSON Administration Lactobacillus Acidophilus 1 tab 08/02/19 09:00 08/02/19 08:52 Floranex PO 1 tab BID JERSON Administration Levothyroxine Sodium 224 mcg 08/02/19 09:00 08/02/19 08:53 Synthroid PO 224 mcg DAILY JERSON Administration Sevelamer Carbonate 800 mg 08/02/19 09:00 08/02/19 08:52 Renvela PO 800 mg TID JERSON Administration PFSH Acute PFSH: Medical History Anxiety CAD (coronary artery disease) Chronic diastolic CHF (congestive heart failure) Chronic kidney disease, stage V On peritoneal dialysis. Follows with Dr Ann. Depression Diabetes Insulin-dependent Gastroparesis GERD (gastroesophageal reflux disease) HTN (hypertension) Hyperlipidemia Hypothyroidism Partial nontraumatic amputation of left foot (~06/2019) Peripheral vascular disease TIA (transient ischemic attack) Vitamin D deficiency Surgical History History of appendectomy History of heart artery stent History of hysterectomy History of left heart catheterization History of right below knee amputation Peritoneal dialysis catheter in place Family History Denies family history of CAD (coronary artery disease) Clotting disorder Dementia Bleeding disorder Social History Smoking and tobacco status: never smoked Alcohol intake: never Household members: spouse and family Vitals/I&O/Wt Last Vital Signs Temp 97.8 F 08/02/19 08:12 Pulse 68 08/02/19 10:45 Resp 16 08/02/19 08:12 BP 95/60 08/02/19 10:45 Pulse Ox 97 08/02/19 10:45 08/01/19 08/02/19 08/02/19 22:59 06:59 14:59 Intake Total 4030.11 / 4030.11 1448.333 / 5478.443 180 / 180 Output Total 0 / 0 Balance 4030.11 / 4030.11 1448.333 / 5478.443 180 / 180 Weight last 48 hrs Weight 99.337 kg Physical Exam Const: COMMON NORMALS: no apparent distress GENERAL APPEARANCE: lethargic NUTRITIONAL APPEARANCE: overweight ORIENTATION/CONSCIOUSNESS: Yes lethargic Eye: COMMON NORMALS: no scleral icterus Neck/C-Spine: COMMON NORMALS: no JVD Resp: COMMON NORMALS: clear to auscultation bilaterally AUSCULTATION: clear to auscultation bilaterally Cardio: COMMON NORMALS: no JVD and regular rate RATE: regular rate Extremity: OTHER: right BKA, left foot wrapped Neuro: SENSORIUM/ORIENTATION: Yes lethargic Data Micro: Micro: Microbiology 08/01/19 20:52 Gram Stain - Final Dialysis Fluid 08/01/19 17:48 Blood Culture - Pr eliminary Blood SPECIMEN [facility] 08/01/19 18:28 Blood Culture - Pr eliminary Blood SPECIMEN [facility] Other Data: Other data: [address] [address] [address] Scan Report Signed Patient: Rizwana Herzog #: [id number] : 1965Acct#:[id number] Age/Sex: 54 / FADM Date: 06/25/19 Loc: ERRoom/Bed: Attending Dr: Ordering Provider/Ordering MD: Tino Greenfield DO Date of Service: 06/25/19 Procedure(s): CT abdomen pelvis con [id number] Accession Number(s): [id number] Report Number: [id number] PROCEDURE INFORMATION: Exam: CT Abdomen And Pelvis Without Contrast Exam date and time: 06/25/2019 4:01 PM Age: 54 years old Clinical indication: Abdominal pain; Acute; Prior surgery; Surgery date: 6+ months; Additional info: N/v; Abd pain TECHNIQUE: Imaging protocol: Computed tomography of the abdomen and pelvis without contrast. Total DLP: 1765.68 mGy-cm Radiation optimization: All CT scans at this facility use at least one of these dose optimization techniques: automated exposure control; mA and/or kV adjustment per patient size (includes targeted exams where dose is matched to clinical indication); or iterative reconstruction. COMPARISON: CT abdomen pelvis con [id number] 04/21/2018 4:28 PM FINDINGS: Tubes, catheters and devices: Right lower quadrant peritoneal dialysis catheter in place. Liver: Normal. No mass. Gallbladder and bile ducts: Prior cholecystectomy. Pancreas: Normal. No ductal dilation. Spleen: Normal. No splenomegaly. Adrenals: Normal. No mass. Kidneys and ureters: Normal. No hydronephrosis. Stomach and bowel: Unremarkable. No obstruction. No mucosal thickening. Appendix: No evidence of appendicitis. Intraperitoneal space: Moderate amount ascites or dialysis fluid in the abdomen and pelvis. Vasculature: Unremarkable. No abdominal aortic aneurysm. Lymph nodes: Unremarkable. No enlarged lymph nodes. Bladder: Small amount of air in collapsed urinary bladder which is probably iatrogenic from recent instrumentation and clinical correlation is requested. Reproductive: Prior hysterectomy. Bones/joints: Unremarkable. No acute fracture. Soft tissues: Enlarging fat and fluid containing umbilical hernia now measuring [address]/CT abdomen pelvis wo con [id number] IMPRESSION: 1) right lower quadrant peritoneal dialysis catheter in place. Moderate amount of ascites or dialysis fluid in the abdomen and pelvis. 2) enlarging 4 cm fat and fluid containing umbilical hernia. 3) prior cholecystectomy and hysterectomy. A&P Additional A&P Information Impression: 1. ESRD on peritoneal dialysis 2. Hypotension 3. Hyponatremia, improved with IV NSS 4. Anemia 5. Left foot ulcer 6. Poor nutrition Recommend: resume CAPD 1.5% QID. PD fluid clear. check iron studies, SQ epogen. Consult Attestations Medical Necessity Statement: per primary service Time Spent in Patient Care: 16 - 35 minutes Coding Level of Care Code Acute Multigrapher for Maris Braden
[2019-08-02] MEDS: lactated ringers 500 ML 999 ML IV (11:00)
--- NOTE | 2019-08-02 11:02 | PM.PN ---
Subjective Subjective: Interval history: This morning patient was examined, she is lying in bed, states that since being discharged from [place], she has not been feeling well, has had malaise, fatigue, she checked her home health nurse checked her blood pressure and her systolic blood pressures were in the 70s, some lightheadedness, no chest pain, no palpitations, no shortness of breath, no fevers, no cough, no diarrhea, no dysuria, no fevers, no chills, patient states that she uses peritoneal dialysis for 9 hours during the night, her adoption manager is in [facility] in [place] Vitals/I&O/Wt Last Vital Signs Temp 97.8 F 08/02/19 08:12 Pulse 68 08/02/19 10:45 Resp 16 08/02/19 08:12 BP 95/60 08/02/19 10:45 Pulse Ox 97 08/02/19 10:45 08/01/19 08/02/19 08/02/19 22:59 06:59 14:59 Intake Total 4030.11 / 4030.11 1448.333 / 5478.443 180 / 180 Output Total 0 / 0 Balance 4030.11 / 4030.11 1448.333 / 5478.443 180 / 180 Weight last 48 hrs Weight 99.337 kg Physical Exam Const: COMMON NORMALS: no apparent distress and oriented x3 HENMT: COMMON NORMALS: normocephalic HEAD & SCALP: normocephalic Neck/C-Spine: COMMON NORMALS: no JVD Resp: COMMON NORMALS: normal respiratory effort, no retractions, no use of accessory muscles and clear to auscultation bilaterally AUSCULTATION: clear to auscultation bilaterally Cardio: COMMON NORMALS: no JVD, regular rate, regular rhythm, S1 normal heart sound and S2 normal heart sound RATE: regular rate RHYTHM: regular rhythm HEART SOUNDS: S1 normal and S2 normal GI: COMMON NORMALS: normal to inspection, nondistended, normoactive bowel sounds, soft to palpation, non-tender, no hepatosplenomegaly, no masses and no bruits PALPATION: Yes soft and Yes no hepatosplenomegaly Extremity: COMMON NORMALS: no pedal edema NARRATIVE EXTREMITY EXAM: Right BKA, left partial foot amputation surgical site looks clean and dry Neuro: COMMON NORMALS: oriented x3 Psych: COMMON NORMALS: mental status grossly normal Data : 08/02/19 08:08 08/02/19 08:08 Micro: Microbiology 08/01/19 20:52 Gram Stain - Final Dialysis Fluid 08/01/19 17:48 Blood Culture - Preliminary Blood SPECIMEN COLLECTED 08/01/19 18:28 Blood Culture - Preliminary Blood SPECIMEN COLLECTED A&P Assessment and plan (1) Acute hypotension: -Recurrent issue -Improving with fluid boluses -Patient states that she also had low blood pressures during her hospitalization at [facility], no specific interventions -Infectious source unlikely, no fevers, UA positive for blood/RBCs likely related to straight cath, patient is on Zosyn for possible urinary tract infection, chest x-ray shows no significant signs of pneumonia, no leukocytosis -She does have a history of CAD status post stenting x1 in October 2018 for which she is on aspirin and Plavix, now has no chest pain complaints, does have elevated troponins but are at baseline, no significant EKG changes, echocardiogram pending -Holding all blood pressure medications Plan: -Hypotension likely distributive secondary to PD -Follow urine cultures, blood cultures -Follow echocardiogram -Monitor blood pressures -We will do ultrasound of left lower extremity evaluate for DVT Status: Acute Code(s): I95.9 - Hypotension, unspecified (2) Chronic kidney disease, stage V: On peritoneal dialysis. Does a 9-hour cycle on a machine at night usually. Nephrology is on consult Status: Chronic Code(s): N18.5 - Chronic kidney disease, stage 5 (3) CAD (coronary artery disease): Denies recent chest pain. Or significant problems with increasing shortness of breath. She has a baseline elevation in troponin but delta was negative. Continue aspirin, Plavix, statin Status: Chronic Qualifiers: Coronary Disease-Associated Artery/Lesion type: [place] artery [place] vs. transplanted heart: [place] heart Associated angina: without angina Qualified Code(s): I25.10 - Atherosclerotic heart disease of [place] coronary artery without angina pectoris Code(s): I25.10 - Atherosclerotic heart disease of [place] coronary artery without angina pectoris (4) Chronic diastolic CHF (congestive heart failure): Has chronic BNP elevation. Clinically does not appear total body volume overloaded presently. Status: Acute Code(s): I50.32 - Chronic diastolic (congestive) heart failure (5) Diabetes: Insulin-dependent. Last hemoglobin A1c I can see is from 2018 when it was 7.8. Continue insulin sliding scale with glargine 15 units twice daily Status: Acute Qualifiers: Diabetes mellitus type: type 2 Diabetes mellitus rat exterminator insulin use: with rat exterminator use Diabetes mellitus complication status: with neurologic complications Diabetes mellitus complication detail: with polyneuropathy Qualified Code(s): E11.42 - Type 2 diabetes mellitus with diabetic polyneuropathy; Z79.4 - exterminator helper termite (current) use of insulin Code(s): E11.9 - Type 2 diabetes mellitus without complications (6) Partial nontraumatic amputation of left foot: Done in June. Still has sutures in place. Some erythema but I think it is probably just from some cleaning of the wound that was done today by home health. I did lance the area. Wound looks to be healing well. No significant odor. Status: Acute Code(s): Z89.432 - Acquired absence of left foot (7) Hypothyroidism: Chronically on levothyroxine Status: Acute Qualifiers: Hypothyroidism type: acquired Qualified Code(s): E03.9 - Hypothyroidism, unspecified Code(s): E03.9 - Hypothyroidism, unspecified (8) Hyperlipidemia: Chronically on statin Status: Acute Qualifiers: Hyperlipidemia type: unspecified Qualified Code(s): E78.5 - Hyperlipidemia, unspecified Code(s): E78.5 - Hyperlipidemia, unspecified Additional A&P Information Subcu heparin for DVT prophylaxis Add lactobacillus, on review of available record she has been on a lot of antibiotics lately Supportive care otherwise Plans were discussed with patient and she was given an opportunity to ask questions Plan is for discharge home when medically stable. I am a bit concerned about the fact that she has required admission just a few days after being discharged from rehab but need to get a bit more information before we can before making any decisions. Full code Attestations Medical Necessity Statement*: Patient requires continued hospitalization for hypertension Coding Level of Care Code Acute County Treasurer for [facility] [place] Diagnoses Acute hypotension I95.9 Chronic kidney disease, stage V N18.5 CAD (coronary artery disease) I25.10 Coronary Disease-Associated Artery/Lesion type: [place] artery [place] vs. transplanted heart: [place] heart Associated angina: without angina Chronic diastolic CHF (congestive heart failure) I50.32 Diabetes E11.42; Z79.4 Diabetes mellitus type: type 2 Diabetes mellitus penitentiary insulin use: with rat exterminator use Diabetes mellitus complication status: with neurologic complications Diabetes mellitus complication detail: with polyneuropathy Partial nontraumatic amputation of left foot Z89.432 Hypothyroidism E03.9 Hypothyroidism type: acquired Hyperlipidemia E78.5 Hyperlipidemia type: unspecified
[2019-08-02 11:06] LABS: Ferritin 877 ng/mL (15-150); Iron 62 ug/dL (37-145); Percent Saturation 37.1 % (20-50); Total Iron Binding Capacity 167 mcg/dl; Unsaturated Iron Binding 105 ug/dL (112-347); Vitamin B12 723 pg/mL (232-1245)
--- NOTE | 2019-08-02 11:09 | USCV_ITS ---
Rizwana Herzog Age: 54 Gender: F : 1965 Exam Date: 08/02/2019 18:39 Ordering Phys: Maikol Lemos MD Technologist: Kasandra Lyles Exam Location: [facility] [place] Indication: DVT HISTORY: DVT. PROCEDURES: Venous duplex imaging was performed in only the left lower extremity. The following venous structures were evaluated: common femoral vein, profunda vein, proximal portion of the greater saphenous vein, superficial femoral vein, and the popliteal vein. In addition, the posterior tibial and peroneal trunk were evaluated. Serial compression, augmentation maneuvers, and spectral Doppler flow evaluation were performed. FINDINGS: Normal 2-D Doppler and augmentation and compressibility throughout the lower extremity venous structures. Additional imaging through the proximal calf veins also reveals no thrombus. Limited evaluation of the greater saphenous vein is patent with no thrombus. CONCLUSIONS No DVT left lower extremity. Dr. Shari Santigao DO (Electronically Signed) Final Date: 03 August 2019 07:55 S
[2019-08-02 11:31] LABS: Glucose Point of Care 139 mg/dL (70-110)
[2019-08-02] MEDS: Dianeal low Ca w/1.5% dex 2,000 mL Bag 2000 ML INTRAPERIT ×3 (11:45→21:55)
[2019-08-02] MEDS: epoetin alfa 10,000 unit/mL INJ 10000 UNIT SUBCUT (11:46)
[2019-08-02 17:12] LABS: Glucose Point of Care 218 mg/dL (70-110)
[2019-08-02 20:52] LABS: Glucose Point of Care 197 mg/dL (70-110)
[2019-08-03] VITALS (9 sets, daily range): BP systolic 88–130; BP diastolic 59–74; PULSE 65–79; RESP 17–19; TEMP 36.6–37.2; O2SAT 93–97
[2019-08-03] MEDS: heparin 5,000 unit/mL INJ 1 mL 5000 UNIT SUBCUT ×2 (02:58→14:45)
[2019-08-03 06:51] LABS: Glucose Point of Care 164 mg/dL (70-110)
[2019-08-03] MEDS: Dianeal low Ca w/1.5% dex 2,000 mL Bag 2000 ML INTRAPERIT ×4 (08:23→20:09)
[2019-08-03] MEDS: insulin glargine 100 units/1 mL 15 UNIT SUBCUT ×2 (08:25→21:03)
[2019-08-03] MEDS: aspirin 81 mg Chew Tablet PO (08:26)
[2019-08-03] MEDS: lactobacillus 1 Tablet 1 TAB PO ×2 (08:26→18:01)
[2019-08-03] MEDS: famotidine 20 mg Tablet PO (08:26)
[2019-08-03] MEDS: levothyroxine 112 mcg Tablet 224 MCG PO (08:27)
[2019-08-03] MEDS: atorvastatin 40 mg Tablet PO (08:27)
[2019-08-03] MEDS: sevelamer 800 mg Tablet PO ×3 (08:27→21:03)
[2019-08-03] MEDS: clopidogrel 75 mg Tablet PO (08:27)
[2019-08-03] MEDS: piperacillin-tazobactam 3.375 GM in sodium chloride 0.9% (plus) 50 ML IV (08:28)
[2019-08-03 09:19] LABS: Basophils % 0.3 %; Eosinophils # 0.3 10^3/uL (0.0-0.8); Eosinophils % 5.5 %; Hematocrit 26.8 % (37.0-47.0); Hemoglobin 8.5 g/dL (11.5-15.3); Lymphocytes # 0.8 10^3/uL (0.8-4.8); Lymphocytes % 14.3 %; Mean Corpuscular HGB Conc 31.7 g/dL (30.0-36.0); Mean Corpuscular Hemoglobin 33.1 pg (28.0-34.0); Mean Corpuscular Volume 104.3 fL (81-99); Mean Platelet Volume 10.7 fL (7.4-10.4); Monocytes # 0.3 10^3/uL (0.2-0.9); Monocytes % 5.6 %; Neutrophils # 4.3 10^3/uL (1.8-7.7); Nucleated Red Blood Cells % 0 %; Platelet Count 150 10^3/cmm (130-400); Red Blood Count 2.57 10^6/uL (4.1-5.3); Red Cell Distribution Width 14.7 % (12.1-15.1); White Blood Count 5.9 10^3/uL (4.0-10.0)
[2019-08-03 09:42] LABS: Alanine Aminotransferase 10 U/L (0-33); Albumin Level 2.4 g/dL (3.5-5.2); Alkaline Phosphatase 100 IU/L (35-105); Aspartate Amino Transferase 13 U/L (0-32); Blood Urea Nitrogen 42 mg/dL (6-20); Calcium 8.9 mg/dL (8.5-10.5); Carbon Dioxide 22 mmol/L (22-29); Chloride 94 mmol/L (98-107); Globulin 2.8 g/dL (1.3-4.6); Glomerular Filtration Rate 5.5 mL/min (90-130); Glucose 165 mg/dL (65-115); Magnesium 1.6 mg/dL (1.7-2.3); Phosphorus 3.6 mg/dL (2.5-4.5); Sodium 131 mmol/L (136-145); Total Bilirubin 0.5 mg/dL (0.15-1.2); Total Protein 5.2 g/dL (6.6-8.7)
[2019-08-03 11:52] LABS: Glucose Point of Care 156 mg/dL (70-110)
--- NOTE | 2019-08-03 12:38 | PC.CHAP ---
Pastoral Care Encounter/Spiritual Assessment Type of Contact [] Declined title i instructional assistant visit [] Patient/Family/Request visit [] Outpatient visit [] Follow-up visit [] Physician referral [] Code/Alert [x] Routine visit [] Staff referral [] Actively dying [] Patient sleeping [] Family support [] [] Out of room [] Palliative care [] [] Receiving care in room [] Pre-surgical visit [] Trauma [] Long length of stay [] ICU visit [] Other: Relational/Emotional Strength [x] Patient feels connected with others/family/visitors/staff [] Distress [] Loneliness/isolation [] Abandonment Spirituality of Patient [x] Person of Talya [] Attends Gnosticism of their [place]a [] Believes in Prayer [] Reads Bible or Tenriism materials [x] There are Spiritual issues to be addressed Lacing Presser Interventions [x] Prayer [x] Active listening [x] Non-anxious presence [x] Spiritual/emotional support [] Crisis/trauma care [x] Spiritual counseling [] Bereavement support [] Provided bereavement packet [] Provided Bible/devotional materials [] Provided toy/stuffed animal, coloring book to patient or family member [] Provided Communion [] Anointing/[place] [] Salvation [] Completed spiritual assessment [] Other: Impact on Illness or Injury [] Angry [] Fearful [] Anxious [] Often cries [] Exhaustion [] Unable to work [] Unable to attend orthodoxy [] Unable to walk/stand [] Unable to read [] Unable to drive [] Unable to eat/drink [] Unable to sleep [] Unable to be with family [] Patient intubated [x] Other: Summary Patient presented herself as being dishearted based upon her current physical circumstances. Patient asked for prayer from the [employer] [place] to smooth out her [address]. Time spent with patient 10-minutes
--- NOTE | 2019-08-03 13:45 | P.PN_ITS ---
Subjective Subjective: Interval history: Patient states that she is doing a bit better this morning, no fevers, no chills, no lightheadedness, no dizziness, no hypotensive episodes overnight Vitals/I&O/Wt Last Vital Signs Temp 97.9 F 08/03/19 11:44 Pulse 79 08/03/19 11:44 Resp 18 08/03/19 11:44 BP 97/62 08/03/19 11:44 Pulse Ox 93 08/03/19 11:44 08/02/19 08/03/19 08/03/19 22:59 06:59 14:59 Intake Total 480 / 950 410 / 1360 120 / 120 Output Total 100 / 100 200 / 200 Balance 380 / 850 410 / 1260 -80 / -80 Weight last 48 hrs Weight 99.337 kg Weight 99.337 kg Weight 99.337 kg Physical Exam Const: COMMON NORMALS: no apparent distress and oriented x3 HENMT: COMMON NORMALS: normocephalic HEAD & SCALP: normocephalic Neck/C-Spine: COMMON NORMALS: no JVD Resp: COMMON NORMALS: normal respiratory effort, no retractions, no use of accessory muscles and clear to auscultation bilaterally AUSCULTATION: clear to auscultation bilaterally Cardio: COMMON NORMALS: no JVD, regular rate, regular rhythm, S1 normal heart sound and S2 normal heart sound RATE: regular rate RHYTHM: regular rhythm HEART SOUNDS: S1 normal and S2 normal GI: COMMON NORMALS: normal to inspection, nondistended, normoactive bowel sounds, soft to palpation, non-tender, no hepatosplenomegaly, no masses and no bruits PALPATION: Yes soft and Yes no hepatosplenomegaly Neuro: COMMON NORMALS: oriented x3 Psych: COMMON NORMALS: mental status grossly normal Data : 08/03/19 09:08 08/03/19 09:08 Micro: Microbiology 08/01/19 22:38 Urine Culture - Preliminary Urine Catheterized Yeast species 08/01/19 20:52 Gram Stain - Final Dialysis Fluid Dialysis Fluid Culture - Preliminary 08/01/19 17:48 Blood Culture - Preliminary Blood NEGATIVE TO DATE 08/01/19 18:28 Blood Culture - Preliminary Blood NEGATIVE TO DATE A&P Assessment and plan (1) Acute hypotension: -Recurrent issue -Improving with fluid boluses -Patient states that she also had low blood pressures during her hospitalization at [facility], no specific interventions -Infectious source unlikely, no fevers, UA positive for blood/RBCs likely related to straight cath, urine culture shows yeast species, I will stop Zosyn, chest x-ray shows no significant signs of pneumonia, no leukocytosis -She does have a history of CAD status post stenting x1 in October 2018 for which she is on aspirin and Plavix, now has no chest pain complaints, does have elevated troponins but are at baseline, no significant EKG changes, echocardiogram pending -Venous duplex negative for DVT -Her serum cortisol a.m. is 4.2, at the low end of normal, will do a cosyntropin test tomorrow -Blood pressures are improved for the last 24 hours -Holding all blood pressure medications Plan: -Hypotension likely distributive secondary to PD -Follow urine cultures, blood cultures -Follow echocardiogram -Cosyntropin stimulation test tomorrow morning -Monitor blood pressures Status: Acute Code(s): I95.9 - Hypotension, unspecified (2) Chronic kidney disease, stage V: On peritoneal dialysis. Does a 9-hour cycle on a machine at night usually. Nephrology is on consult Status: Chronic Code(s): N18.5 - Chronic kidney disease, stage 5 (3) CAD (coronary artery disease): Denies recent chest pain. Or significant problems with increasing shortness of breath. She has a baseline elevation in troponin but delta was negative. Continue aspirin, Plavix, statin Status: Chronic Qualifiers: Coronary Disease-Associated Artery/Lesion type: [place] artery [place] vs. transplanted heart: [place] heart Associated angina: without angina Qualified Code(s): I25.10 - Atherosclerotic heart disease of [place] coronary artery without angina pectoris Code(s): I25.10 - Atherosclerotic heart disease of [place] coronary artery without angina pectoris (4) Chronic diastolic CHF (congestive heart failure): Has chronic BNP elevation. Clinically does not appear total body volume overloaded presently. Status: Acute Code(s): I50.32 - Chronic diastolic (congestive) heart failure (5) Diabetes: Insulin-dependent. Last hemoglobin A1c I can see is from 2018 when it was 7.8. Continue insulin sliding scale with glargine 15 units twice daily Status: Acute Qualifiers: Diabetes mellitus type: type 2 Diabetes mellitus longterm insulin use: with joint terminal attack controller use Diabetes mellitus complication status: with neurologic complications Diabetes mellitus complication detail: with polyneuropathy Quali fied Code(s): E11.42 - Type 2 diabetes mellitus with diabetic polyneuropathy; Z79.4 - intermediate (current) use of insulin Code(s): E11.9 - Type 2 diabetes mellitus without complications (6) Partial nontraumatic amputation of left foot: Done in June. Still has sutures in place. Some erythema but I think it is probably just from some cleaning of the wound that was done today by home health. I did lance the area. Wound looks to be healing well. No significant odor. Status: Acute Code(s): Z89.432 - Acquired absence of left foot (7) Hypothyroidism: Chronically on levothyroxine Status: Acute Qualifiers: Hypothyroidism type: acquired Qualified Code(s): E03.9 - Hypothyroidism, unspecified Code(s): E03.9 - Hypothyroidism, unspecified (8) Hyperlipidemia: Chronically on statin Status: Acute Qualifiers: Hyperlipidemia type: unspecified Qualified Code(s): E78.5 - Hyperlipidemia, unspecified Code(s): E78.5 - Hyperlipidemia, unspecified Additional A&P Information Subcu heparin for DVT prophylaxis Add lactobacillus, on review of available record she has been on a lot of antibiotics lately Supportive care otherwise Plans were discussed with patient and she was given an opportunity to ask quest ions Plan is for discharge home when medically stable. I am a bit concerned about the fact that she has required admission just a few days after being discharged from rehab but need to get a bit more information before we can before making any decisions. 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 transplanted heart: [place] heart Associated angina: without angina Chronic diastolic CHF (congestive heart failure) I50.32 Diabetes E11.42; Z79.4 Diabetes mellitus type: type 2 Diabetes mellitus joint terminal attack controller insulin use: with joint terminal attack controller use Diabetes mellitus complication status: with neurologic complications Diabetes mellitus complication detail: with polyneuropathy Partial nontraumatic amputation of left foot Z89.432 Hypothyroidism E03.9 Hypothyroidism type: acquired Hyperlipidemia E78.5 Hyperlipidemia type: unspecified
--- NOTE | 2019-08-03 15:50 | PC.OT ---
OT SCREEN COMPLETED. PATIENT DEMONSTRATES NO DEFICITS WITH ADLs AT THIS TIME. NO FURTHER SKILLED OT REQUIRED
--- NOTE | 2019-08-03 16:55 | PM.PN ---
Subjective Subjective: Interval history: feels better today. PD going well. BP better Medications: Reviewed: Yes Vitals/I&O/Wt Last Vital Signs Temp 98.6 F 08/03/19 16:00 Pulse 74 08/03/19 16:00 Resp 18 08/03/19 16:00 BP 100/65 08/03/19 16:00 Pulse Ox 94 08/03/19 16:00 08/03/19 08/03/19 08/03/19 06:59 14:59 22:59 Intake Total 410 / 1360 120 / 120 Output Total 200 / 200 Balance 410 / 1260 -80 / -80 Weight last 48 hrs Weight 99.337 kg Weight 99.337 kg Weight 99.337 kg Physical Exam Const: COMMON NORMALS: no apparent distress GENERAL APPEARANCE: cooperative Resp: COMMON NORMALS: clear to auscultation bilaterally AUSCULTATION: clear to auscultation bilaterally Cardio: COMMON NORMALS: regular rate RATE: regular rate Psych: COMMON NORMALS: affect normal Data : 08/03/19 09:08 08/03/19 09:08 Micro: Microbiology 08/01/19 22:38 Urine Culture - Preliminary Urine Catheterized Yeast species 08/01/19 20:52 Gram Stain - Final Dialysis Fluid Dialysis Fluid Culture - Preliminary 08/01/19 17:48 Blood Culture - Preliminary Blood NEGATIVE TO DATE 08/01/19 18:28 Blood Culture - Preliminary Blood NEGATIVE TO DATE A&P Additional A&P Information Impression: 1. ESRD on peritoneal dialysis 2. Hypotension, improved 3. Hyponatremia, improved 4. Anemia, iron replete 5. Left foot ulcer 6. Poor nutrition Recommend: continue CAPD 1.5% QID. PD fluid clear. will not administer epogen. She states she does not receive injection for anemia as outpatient. 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
[2019-08-03 17:52] LABS: Glucose Point of Care 207 mg/dL (70-110)
[2019-08-03 21:25] LABS: Glucose Point of Care 172 mg/dL (70-110)
[2019-08-04] VITALS (8 sets, daily range): BP systolic 107–133; BP diastolic 66–82; PULSE 69–80; RESP 16–18; TEMP 36.7–37.4; O2SAT 91–98
[2019-08-04] MEDS: heparin 5,000 unit/mL INJ 1 mL 5000 UNIT SUBCUT (03:19)
[2019-08-04 06:15] LABS: Basophils % 0.4 %; Eosinophils # 0.3 10^3/uL (0.0-0.8); Eosinophils % 5.4 %; Hematocrit 26.8 % (37.0-47.0); Hemoglobin 8.9 g/dL (11.5-15.3); Lymphocytes % 17.8 %; Mean Corpuscular HGB Conc 33.2 g/dL (30.0-36.0); Mean Corpuscular Hemoglobin 32.7 pg (28.0-34.0); Mean Corpuscular Volume 98.5 fL (81-99); Mean Platelet Volume 10.9 fL (7.4-10.4); Monocytes # 0.3 10^3/uL (0.2-0.9); Nucleated Red Blood Cells % 0 %; Platelet Count 165 10^3/cmm (130-400); Red Blood Count 2.72 10^6/uL (4.1-5.3); Red Cell Distribution Width 14.4 % (12.1-15.1); White Blood Count 5.7 10^3/uL (4.0-10.0)
[2019-08-04 06:39] LABS: Alanine Aminotransferase 9 U/L (0-33); Albumin Level 2.4 g/dL (3.5-5.2); Alkaline Phosphatase 97 IU/L (35-105); Anion Gap 17.5 (5-19); Aspartate Amino Transferase 10 U/L (0-32); Blood Urea Nitrogen 32 mg/dL (6-20); Calcium 9.7 mg/dL (8.5-10.5); Carbon Dioxide 25 mmol/L (22-29); Chloride 92 mmol/L (98-107); Glucose 143 mg/dL (65-115); Magnesium 1.6 mg/dL (1.7-2.3); Phosphorus 3.6 mg/dL (2.5-4.5); Potassium 3.5 mmol/L (3.5-5.1); Sodium 131 mmol/L (136-145); Total Bilirubin 0.4 mg/dL (0.15-1.2); Total Protein 6.4 g/dL (6.6-8.7)
[2019-08-04 06:44] LABS: Glucose Point of Care 143 mg/dL (70-110)
[2019-08-04 08:10] LABS: Cosyntropin Baseline 5.78 mcg/dL
[2019-08-04] MEDS: atorvastatin 40 mg Tablet PO (08:45)
[2019-08-04] MEDS: clopidogrel 75 mg Tablet PO (08:46)
[2019-08-04] MEDS: levothyroxine 112 mcg Tablet 224 MCG PO (08:46)
[2019-08-04] MEDS: aspirin 81 mg Chew Tablet PO (08:46)
[2019-08-04] MEDS: lactobacillus 1 Tablet 1 TAB PO (08:46)
[2019-08-04] MEDS: famotidine 20 mg Tablet PO (08:46)
[2019-08-04] MEDS: sevelamer 800 mg Tablet PO (08:46)
[2019-08-04] MEDS: cosyntropin 0.25 mg SDV IVP (08:56)
[2019-08-04] MEDS: Dianeal low Ca w/1.5% dex 2,000 mL Bag 2000 ML INTRAPERIT (08:56)
[2019-08-04] MEDS: insulin glargine 100 units/1 mL 15 UNIT SUBCUT (09:04)
[2019-08-04 10:24] LABS: Cosyntropin 30 Minute 20.69 mcg/dL
[2019-08-04 10:46] LABS: Cosyntropin 1 Hour 27.17 mcg/dL
--- NOTE | 2019-08-04 11:05 | P.PN_ITS ---
Subjective Subjective: Interval history: Continues to feel better each day. Became short of breath last evening. Resolved. No chest pain. PD exhanges going well. RN reports I/O neg > 1200 ml yesterday Current oxygen sat 94% on 2 LNC Vitals/I&O/Wt Last Vital Signs Temp 98.4 F 08/04/19 07:40 Pulse 76 08/04/19 08:18 Resp 18 08/04/19 07:40 BP 110/69 08/04/19 07:40 Pulse Ox 98 08/04/19 08:18 08/03/19 08/04/19 08/04/19 22:59 06:59 14:59 Intake Total 480 / 600 Balance 480 / 400 Weight last 48 hrs Weight 99.337 kg Weight 99.337 kg Weight 99.337 kg Weight 99.337 kg Physical Exam Const: COMMON NORMALS: no apparent distress GENERAL APPEARANCE: cooperative Eye: COMMON NORMALS: no scleral icterus Resp: COMMON NORMALS: normal respiratory effort and clear to auscultation bilaterally AUSCULTATION: clear to auscultation bilaterally Cardio: COMMON NORMALS: regular rate and regular rhythm JUGULAR VENOUS D ISTENTION: no JVD RATE: regular rate RHYTHM: regular rhythm Data : 08/04/19 05:40 08/04/19 05:40 Micro: Microbiology 08/01/19 22:38 Urine Culture - Preliminary Urine Catheterized Yeast species 08/01/19 20:52 Gram Stain - Final Dialysis Fluid Dialysis Fluid Culture - Preliminary A&P Additional A&P Information Impression: 1. ESRD on peritoneal dialysis 2. Hypotension, improved 3. Hyponatremia, chronic, asymptomatic 4. Anemia, iron replete 5. Left foot ulcer 6. Poor nutrition Recommend: continue CAPD 1.5% QID. PD fluid clear. will not administer epogen. She states she does not receive injection for anemia as outpatient. Cosyntropin test in progress Attestations Medical Necessity Statement*: per primary service Time Spent in Patient Care: 16 - 35 minutes Coding Level of Care Code Acute Director Of Primary Care for Maris Braden
[2019-08-04 11:41] LABS: Glucose Point of Care 164 mg/dL (70-110)
--- NOTE | 2019-08-04 12:40 | PC.SOCIAL ---
IMM Page 2 of IMM explained to and signed by patient. Initialed, dated, and timed and placed in chart. Copy provided to patient.
--- NOTE | 2019-08-04 13:20 | PC.NURSE ---
Discharge Discharge instructions given per the physician's orders. Patient verbalized understanding and did not have any further questions. Patient informed PD was scheduled to be drained at 1345. Patient refused to stay to let nurse drain her. Patient states she would take care of it at home.
--- NOTE | 2019-08-04 14:59 | PM.DCS ---
Discharge Providers Date of Admission: 08/01/19 22:37 Date of Discharge: August 04, 2019 Attending Provider at Admission: Neeta Jeronimo MD Attending Provider at Discharge: Maikol Lemos MD Primary Care Provider: Yovany Leonardo MD Diagnoses at Discharge Discharge Diagnosis (1) Acute hypotension: Status: Acute (2) Chronic kidney disease, stage V: Status: Chronic Problem details: On peritoneal dialysis. Follows with Dr Ann. (3) CAD (coronary artery disease): Status: Chronic Qualifiers: Coronary Disease-Associated Artery/Lesion type: [place] artery [place] vs. transplanted heart: [place] heart Associated angina: without angina Qualified Code(s): I25.10 - Atherosclerotic heart disease of [place] coronary artery without angina pectoris (4) Chronic diastolic CHF (congestive heart failure): Status: Acute (5) Diabetes: Status: Acute Problem details: Insulin-dependent Qualifiers: Diabetes mellitus type: type 2 Diabetes mellitus assisted insulin use: with intermodal owner operator truck driver use Diabetes mellitus complication status: with neurologic complications Diabetes mellitus complication detail: with polyneuropathy Qualified Code(s): E11.42 - Type 2 diabetes mellitus with diabetic polyneuropathy; Z79.4 - long term acute care registered nurse (current) use of insulin (6) Partial nontraumatic amputation of left foot: Status: Acute (7) Hypothyroidism: Status: Acute Qualifiers: Hypothyroidism type: acquired Qualified Code(s): E03.9 - Hypothyroidism, unspecified (8) Hyperlipidemia: Status: Acute Qualifiers: Hyperlipidemia type: unspecified Qualified Code(s): E78.5 - Hyperlipidemia, unspecified Reason for Visit Reason for Visit: Reason For Visit: HYPOTENSION Hospital Course Hospital Course: Rizwana Herzog is a 54 year old female who presented to the emergency room feeling dizzy and very tired. She has a history of chronic kidney disease on peritoneal dialysis Discharge Summary: Patient was admitted for acute on chronic hypotension likely secondary to distributive secondary to peritoneal dialysis, all her hypertensive medications were held, venous duplex was negative for DVT, echocardiogram showed ejection fraction of 60%, serum a.m. cortisol was unremarkable, cosyntropin stimulation test was within normal limits, infectious work-up was unremarkable, patient's blood pressure improved to the 110/80's. Patient was discharged with instructions to hold blood pressure medication until seen by nephrology, monitor for lightheadedness and dizziness and if so come back to the emergency room. Physical Exam Const: COMMON NORMALS: no apparent distress and oriented x3 HENMT: COMMON NORMALS: normocephalic HEAD & SCALP: normocephalic Neck/C-Spine: COMMON NORMALS: no JVD Resp: COMMON NORMALS: normal respiratory effort, no retractions, no use of accessory muscles and clear to auscultation bilaterally AUSCULTATION: clear to auscultation bilaterally Cardio: COMMON NORMALS: no JVD, regular rate, regular rhythm, S1 normal heart sound and S2 normal heart sound RATE: regular rate RHYTHM: regular rhythm HEART SOUNDS: S1 normal and S2 normal GI: COMMON NORMALS: normal to inspection, nondistended, normoactive bowel sounds, soft to palpation, non-tender, no hepatosplenomegaly, no masses and no bruits PALPATION: Yes soft and Yes no hepatosplenomegaly Extremity: COMMON NORMALS: normal capillary refill, no clubbing, cyanosis or edema, no calf tenderness and no pedal edema Neuro: COMMON NORMALS: oriented x3 Psych: COMMON NORMALS: mental status grossly normal Discharge Data Data Completed and Pending: Completed Studies During Hospitalization Category Date Time Status XR chest 1V sandra ble [id number] Urgent Exams 08/01/19 17:18 Completed XR foot LT min 3V * [id number] Stat Exams 08/01/19 19:36 Completed CV echo complete* [id number] Routine Ultrasound 08/02/19 09:10 [place] [id number] Routin e Ultrasound 08/02/19 11:09 Completed Pending at discharge Category Date Time Status Blood Culture Sta t Lab 08/01/19 17:48 Results Dialysis Culture Stat Lab 08/01/19 20:52 Results Gram Stain Stat Lab 08/01/19 20:52 Results Urine Culture Sta t Lab 08/01/19 22:38 Results Labs from last 24 hours 08/04/19 08/04/19 08/04/19 11:03 06:39 05:40 WBC RBC Hgb Hct MCV MCH MCHC RDW Plt Count MPV Neut % (Auto) Lymph % (Auto) Desha % (Auto) Eos % (Auto) Baso % (Auto) Neut # (Auto) Lymph # (Auto) Desha # (Auto) Eos # (Auto) Baso # (Auto) Nucleated RBC % (a uto) Nucleated RBCs # Sodium 131 L Potassium 3.5 Chloride 92 L Carbon Dioxide 25 Anion Gap 17.5 BUN 32 H Creatinine 7.1 H* GFR Calculation 6.0 L Glucose 143 H POC Glucose 164 143 Calcium 9.7 Phosphorus 3.6 Magnesium 1.6 L Total Bilirubin 0.4 AST 10 ALT 9 Alkaline Phosphata se 97 Total Protein 6.4 L D Albumin 2.4 L Globulin 4.0 Cortisol Response 08/04/19 08/04/19 08/03/19 05:40 05:40 20:57 WBC 5.7 RBC 2.72 L Hgb 8.9 L Hct 26.8 L MCV 98.5 D MCH 32.7 MCHC 33.2 RDW 14.4 Plt Count 165 MPV 10.9 H Neut % (Auto) 70.0 Lymph % (Auto) 17.8 Desha % (Auto) 6.0 Eos % (Auto) 5.4 Baso % (Auto) 0.4 Neut # (Auto) 4.0 Lymph # (Auto) 1.0 Desha # (Auto) 0.3 Eos # (Auto) 0.3 Baso # (Auto) 0.0 Nucleated RBC % (a uto) 0 Nucleated RBCs # 0.0 Sodium Potassium Chloride Carbon Dioxide Anion Gap BUN Creatinine GFR Calculation Glucose POC Glucose 172 Calcium Phosphorus Magnesium Total Bilirubin AST ALT Alkaline Phosphata se Total Protein Albumin Globulin Cortisol Response 08/03/19 16:43 WBC RBC Hgb Hct MCV MCH MCHC RDW Plt Count MPV Neut % (Auto) Lymph % (Auto) Desha % (Auto) Eos % (Auto) Baso % (Auto) Neut # (Auto) Lymph # (Auto) Desha # (Auto) Eos # (Auto) Baso # (Auto) Nucleated RBC % (a uto) Nucleated RBCs # Sodium Potassium Chloride Carbon Dioxide Anion Gap BUN Creatinine GFR Calculation Glucose POC Glucose 207 Calcium Phosphorus Magnesium Total Bilirubin AST ALT Alkaline Phosphata se Total Protein Albumin Globulin Cortisol Response Vitals: Last Vital Signs Temp 98.1 F 08/04/19 13:16 Pulse 80 08/04/19 13:16 Resp 18 08/04/19 13:16 BP 118/82 08/04/19 13:16 Pulse Ox 97 08/04/19 13:16 Discharge Plan Discharge Patient Disposition: Home, Self-Care Condition: Stable Prescriptions: Continued atorvastatin 40 mg tablet 40 mg PO DAILY RF: 0 clopidogrel 75 mg tablet 75 mg PO DAILY RF: 0 pantoprazole 40 mg tablet,delayed release (DR/EC) 40 mg PO DAILY RF: 0 levothyroxine 112 mcg Tablet 224 mcg PO DAILY RF: 0 aspirin 81 mg Tablet,Chewable 81 mg PO DAILY RF: 0 multivitamin [Multiple Vitamins] Tablet 1 tab PO DAILY RF: 0 paricalcitol [Zemplar] 1 mcg capsule See Rx Instructions .ROUTE .COMPLEX RF: 0 acetaminophen 325 mg Tablet 650 mg PO Q4H PRN (Reason: Pain) RF: 0 Lantus U-100 Insulin 100 unit/mL Solution See Rx Instructions .ROUTE .COMPLEX RF: 0 famotidine 40 mg Tablet 40 mg PO BID RF: 0 tramadol 50 mg Tablet 50 mg PO DAILY PRN (Reason: Pain) RF: 0 nitroglycerin 0.4 mg Tablet, Sublingual 0.4 mg SUBLINGUAL Q5M PRN (Reason: Chest Pain) RF: 0 gentamicin 0.1 % Cream 1 applic TOPICAL QID RF: 0 Renvela 800 mg Tablet 800 mg PO TID RF: 0 Lantus U-100 Insulin See Rx Instructions .ROUTE .COMPLEX RF: 0 Held metoprolol succinate 50 mg tablet extended release 24 hr 25 mg PO DAILY RF: 0 Hold Instructions: Resume on 09/04/19. Hold until you see outpatient nephrology, resume if deemed appropriate isosorbide mononitrate 30 mg Tablet Extended Release 24 Hr 30 mg PO DAILY RF: 0 Hold Instructions: Resume on 09/01/19. Hold until you see outpatient nephrology, resume if deemed appropriate bumetanide 1 mg Tablet 1 mg PO BID RF: 0 Hold Instructions: Resume on 09/05/19. resume when outpatient follow up with nephrology if deemed apporpriate Discontinued levofloxacin 250 mg tablet 250 mg PO DAILY RF: 0 Discharge Orders: Discharge Order (Routine); Ordered 08/04/19 Ordered By: Maikol Lemos Referrals: Yovany Leonardo MD [Primary Care Provider] - 4-7 days (Please call your primary care provider on Wednesday to schedule a follow up appointment in 4-7 days. ) Discharge Diet: Advance as tolerated Discharge Activity: Resume usual activity Patient Instructions: Type 2 Diabetes, Heart Failure (DC), Chronic Kidney Disease (DC), Hypothyroidism (DC), Coronary Artery Disease in Women (DC), Peripheral Vascular Disorders (DC), Gastroesophageal Reflux Disease (DC), Surgical Site Infections (GEN), Hypotension (DC), End-Stage Kidney Disease (DC), Hyperlipidemia (DC), Peritoneal Dialysis Activity Restrictions/Additional Instructions: -Your blood pressure medications have been held, they will be resumed based on nephrology's recommendations -If you feel lightheaded or dizzy please come back to the emergency room Discharge Date/Time: 08/04/19 13:43 Discharge Attestations Time Spent in Discharge Care*: less than 30 min Status at Discharge: Cognitive status at discharge: cognitively intact, Behavioral status at discharge: cooperative, Quality Metrics Clinical Quality Measures During this hospital stay, did patient experience: None Coding Level of Care Code 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 transplanted heart: [place] heart Associated angina: without angina Chronic diastolic CHF (congestive heart failure) I50.32 Diabetes E11.42; Z79.4 Diabetes mellitus type: type 2 Diabetes mellitus assisted insulin use: with intermodal owner operator truck driver use Diabetes mellitus complication status: with neurologic complications Diabetes mellitus complication detail: with polyneuropathy Partial nontraumatic amputation of left foot Z89.432 Hypothyroidism E03.9 Hypothyroidism type: acquired Hyperlipidemia E78.5 Hyperlipidemia type: unspecified
== END 2019-08-04 13:43 | disposition home or self-care (01) | DRG 314 ==
LOC: ER 22:59 → MEDSURG 23:13
PROVIDERS: Family Medicine; Admitting Provider Hospitalist; Emergency Provider Emergency Medicine; Family Provider Internal Medicine; PCP Internal Medicine; Visit Provider Family Medicine
DX: I95.9 Hypotension, unspecified (principal); N18.6 End stage renal disease; I12.0 Hypertensive chronic kidney disease with stage 5 chronic kidney disease or end stage renal disease; I50.32 Chronic diastolic (congestive) heart failure; E87.1 Hypo-osmolality and hyponatremia; L97.429 Non-pressure chronic ulcer of left heel and midfoot with unspecified severity; I25.10 Atherosclerotic heart disease of native coronary artery without angina pectoris; E03.9 Hypothyroidism, unspecified; E78.5 Hyperlipidemia, unspecified; E11.42 Type 2 diabetes mellitus with diabetic polyneuropathy; E11.22 Type 2 diabetes mellitus with diabetic chronic kidney disease; D63.1 Anemia in chronic kidney disease; E11.621 Type 2 diabetes mellitus with foot ulcer; E11.43 Type 2 diabetes mellitus with diabetic autonomic (poly)neuropathy; K31.84 Gastroparesis; Z79.899 Other long term (current) drug therapy; Z79.4 Long term (current) use of insulin; Z99.2 Dependence on renal dialysis; Z79.82 Long term (current) use of aspirin; Z89.432 Acquired absence of left foot
CPT/HCPCS: 12345; 36415; 36416; 36600; 71045; 73630; 80048; 80053; 80500; 81001; 82009; 82533; 82607; 82728; 82803; 82962; 83540; 83550; 83605; 83735; 83880; 84100; 84484; 85007; 85025; 85027; 85045; 85378; 87040; 87070; 87086; 87106; 87205; 87804; 89050; 90935; 93005; 93306; 93971; 96372; 96375; 97161; 97530; 99284; A9270; J0834; J1644; J1815; J2270; J2543; J3370; J7030; J7040; J7050; Q3014; Q4081

== ENCOUNTER 2019-08-07 10:25 | Inpatient (IN) | payer MEDICARE, MEDICAID, SELFPAY ==
[2019-08-07] VITALS (16 sets, daily range): BP systolic 92–128; BP diastolic 61–86; PULSE 73–140; RESP 16–18; TEMP 36.6–36.9; O2SAT 93–98; BMI 35.7
--- NOTE | 2019-08-07 10:50 | ED_ITS ---
Entered by Richelle Deng, acting as scribe for Yao Steele MD HPI - General Adult General: Chief complaint: General Medical Stated complaint: weak, hypotension, tachycardia Time Seen by Provider: 08/07/19 10:50 Source: patient Mode of arrival: wheelchair Limitations: no limitations History of Present Illness: HPI narrative: 54 yo female presents with chest pressure, heart racing, and fatigue. She was recently admitted with low blood pressure and her metoprolol, bumex, and isosorbide were held. woke up this morning and after taking off her bipap she noticed the symptoms. pt states she has had a high heart rate in past before she got on all these meds which are now held. pt states with symptoms she has had weakness. pt denies any other symptoms at this time. MD complaint: irregular heart rate, hypotension, weakness Onset (ago): day(s) Severity: mild Pain Consistency: constant Relieving factors: none Exacerbating factors: none Associated symptoms: Reports chest pain, dyspnea, malaise and palpitations; Deny syncope or vomiting Treatments prior to arrival: none Review of Systems General: Reports: 10 or more systems reviewed and unremarkable except in HPI and below Const: Reports: fatigue and malaise; Denies: fever or night sweats Eyes: Denies: change in vision ENMT: Denies: throat pain or enlarged tonsils Card: Reports: chest pain, palpitations, irregular heart rhythm (135), edema, swelling of feet/ankles and lightheadedness; Denies: syncope Resp: Reports: shortness of breath; Denies: productive cough or non-productive cough GI: Denies: abdominal pain, vomiting or difficulty swallowing : Reports: other (pd dialysis at night) PFSH ED PFSH: Social History Smoking and tobacco status: never smoked Alcohol intake: never Household members: spouse and family Physical Exam Const: COMMON NORMALS: no limitations, alert and well nourished EXAM LIMITATIONS: no altered mental status GENERAL APPEARANCE: cooperative, well developed and grossly edematous ORIENTATION/CONSCIOUSNESS: Yes awake; not confused HENMT: COMMON NORMALS: normocephalic, head/scalp atraumatic, external ears normal and external nose normal HEAD & SCALP: normal to inspection, normocephalic and atraumatic FACE & SINUS: face symmetric NOSE: external nose normal EXTERNAL EAR: Yes external ears normal MOUTH: lip normal; no muffled voice Eye: COMMON NORMALS: EOMs intact bilaterally and conjunctivae normal GENERAL EYE: normal appearance of both eyes CONJUNCTIVA: Yes conjunctivae normal Neck/C-Spine: COMMON NORMALS: no JVD GENERAL: Yes normal visual inspection and Yes trachea midline Chest: COMMONS NORMALS: inspection of chest normal Resp: COMMON NORMALS: normal respiratory effort, no use of accessory muscles and clear to auscultation bilaterally EFFORT & INSPECTION: Yes able to speak in complete sentences, Yes symmetric chest movement, No tachypneic, No decreased respiratory effort, No labored, No actively coughing and No retractions AUSCULTATION: clear to auscultation bilaterally Cardio: COMMON NORMALS: no JVD RATE: tachycardic HEART SOUNDS: other (difficult to hear) PERIPHERAL PULSES: radial pulses present GI: COMMON NORMALS: soft to palpation INSPECTION: Yes normal to inspection PALPATION: Yes soft, No tender and No guarding Back/Pelvis: COMMON NORMALS: thoraco-lumbar ROM normal Extremity: COMMON NORMALS: normal to inspection GENERAL: Yes normal exam except as noted Neuro: COMMON NORMALS: moves all extremities, no focal motor deficits and no sensory deficits noted SENSORIUM/ORIENTATION: Yes alert Psych: COMMON NORMALS: mental status grossly normal, thought process normal, cooperative and speech normal; negative for affect normal (depressed affect) SPEECH: Yes normal speech THOUGHT PROCESS: normal thought process Skin: COMMON NORMALS: no rashes or lesions noted, skin turgor normal and no jaundice GENERAL SKIN EXAM: no rashes or lesions noted and turgor normal Course Vital Signs: Vital signs: Vital Signs Temperature 98.5 F 08/07/19 10:29 Pulse Rate 135 H 08/07/19 11:22 Respiratory Rate 16 08/07/19 11:22 Blood Pressure 114/81 08/07/19 11:22 Pulse Oximetry 95 08/07/19 11:22 MDM - General Adult MDM Narrative: Medical decision making narrative: This is a 54-year-old female with a history of peritoneal dialysis, diabetes, and recent issues with hypotension now off of her beta blockers and long-acting nitrates. Patient presents with tachycardia. It appears narrow complex and regular. No definite P waves. Suspect that this is sinus tachycardia with TMP phenomenon. Vagal maneuvers were attempted in the room. The patient's rate did not slow. Her blood pressure is borderline low. 10 mg of Cardizem was given. This slowed her rate slightly and she appeared to have occasional P waves. However, she also had developed some irregularity. It is unclear whether this is sinus tachycardia with TMP phenomenon or whether this is atrial fibrillation or other atrial tachycardia of new onset. I did a bedside ultrasound which was technically difficult. There is no pericardial effusion. I do not see any obvious fluttering of the atrium. CT angios of the chest was performed as a chest x-ray was slightly abnormal and the patient has tachycardia. There was no pulmonary embolism or infectious infiltrate. There were areas of atelectasis and some pulmonary edema. No large effusions. I did start an ultrasound-guided IV as patient refused IV access via palpation and blind approach. Baseline troponin was elevated but the patient is a dialysis patient. On reassessment the patient's chest pain has resolved. This does not appear to be a primary fluid overload issue. I discussed with Dr. Wang. We have decided to reinitiate beta-blockers and evaluate for response. We will continue to try and elucidate the nature of the rhythm. The patient will be restarted on metoprolol 5 mg IV and will continue to reevaluate. Lab Data: Labs: Lab Results 08/07/19 08/07/19 08/07/19 Range/Units 11:40 12:28 12:28 WBC 6.3 (4.0-10.0) 10^3/ uL RBC 3.56 L (4.1-5.3) 10^6/u L Hgb 12.2 (11.5-15.3) g/dL Hct 36.6 L (37.0-47.0) % MCV 102.8 H (81-99) fL MCH 34.3 H (28.0-34.0) pg MCHC 33.3 (30.0-36.0) g/dL RDW 14.7 (12.1-15.1) % Plt Count 198 (130-400) 10^3/c mm MPV 10.4 (7.4-10.4) fL Neut % (Auto) 71.4 % Lymph % (Auto) 19.1 % [place] % (Auto) 6.6 % Eos % (Auto) 2.2 % Baso % (Auto) 0.2 % Neut # (Auto) 4.5 (1.8-7.7) 10^3/u L Lymph # (Auto) 1.2 (0.8-4.8) 10^3/u L [place] # (Auto) 0.4 (0.2-0.9) 10^3/u L Eos # (Auto) 0.1 (0.0-0.8) 10^3/u L Baso # (Auto) 0.0 (0.0-0.1) 10^3/u L Nucleated RBC % (a uto) 0 % Nucleated RBCs # 0.0 /100WBC D-Dimer (0-0.59) ug/mIFE U Sodium 135 L (136-145) mmol/L Potassium 3.7 (3.5-5.1) mmol/L Chloride 94 L (98-107) mmol/L Carbon Dioxide 25 (22-29) mmol/L Anion Gap 19.7 H (5-19) BUN 26 H (6-20) mg/dL Creatinine 6.2 H* (0.5-0.9) mg/dL GFR Calculation 7.0 L (90-130) mL/min Glucose 211 H (65-115) mg/dL POC Glucose 211 (70-110) mg/dL Calcium 10.2 (8.5-10.5) mg/dL Magnesium 1.6 L (1.7-2.3) mg/dL Total Bilirubin 0.6 (0.15-1.2) mg/dL AST 16 (0-32) U/L ALT 12 (0-33) U/L Alkaline Phosphata se 102 (35-105) IU/L Troponin T Baselin e (0-10) ng/mL NT-Pro-B Natriuret Pep 4221 H (0-125) pg/mL Total Protein 6.7 (6.6-8.7) g/dL Albumin 3.4 L (3.5-5.2) g/dL Globulin 3.3 (1.3-4.6) g/dL 08/07/19 08/07/19 Range/Units 12:28 12:28 WBC (4.0-10.0) 10^3/ uL RBC (4.1-5.3) 10^6/u L Hgb (11.5-15.3) g/dL Hct (37.0-47.0) % MCV (81-99) fL MCH (28.0-34.0) pg MCHC (30.0-36.0) g/dL RDW (12.1-15.1) % Plt Count (130-400) 10^3/c mm MPV (7.4-10.4) fL Neut % (Auto) % Lymph % (Auto) % [place] % (Auto) % Eos % (Auto) % Baso % (Auto) % Neut # (Auto) (1.8-7.7) 10^3/u L Lymph # (Auto) (0.8-4.8) 10^3/u L [place] # (Auto) (0.2-0.9) 10^3/u L Eos # (Auto) (0.0-0.8) 10^3/u L Baso # (Auto) (0.0-0.1) 10^3/u L Nucleated RBC % (a uto) % Nucleated RBCs # /100WBC D-Dimer 1.27 H (0-0.59) ug/mIFE U Sodium (136-145) mmol/L Potassium (3.5-5.1) mmol/L Chloride (98-107) mmol/L Carbon Dioxide (22-29) mmol/L Anion Gap (5-19) BUN (6-20) mg/dL Creatinine (0.5-0.9) mg/dL GFR Calculation (90-130) mL/min Glucose (65-115) mg/dL POC Glucose (70-110) mg/dL Calcium (8.5-10.5) mg/dL Magnesium (1.7-2.3) mg/dL Total Bilirubin (0.15-1.2) mg/dL AST (0-32) U/L ALT (0-33) U/L Alkaline Phosphata se (35-105) IU/L Troponin T Baselin e 175 H* (0-10) ng/mL NT-Pro-B Natriuret Pep (0-125) pg/mL Total Protein (6.6-8.7) g/dL Albumin (3.5-5.2) g/dL Globulin (1.3-4.6) g/dL EKG Data^: This appears to be a regular narrow complex tachycardia with a rate of 138 bpm, there is a left axis deviation, QRS is narrow, no concerning ST segment elevations, few nonspecific ST and T wave changes are noted. No ectopy is seen. No definite p waves.: Computer generated interpretation: Chest CTA 08/07/19 12:01 IMPRESSION: 1. No pulmonary embolism. 2. Mild CHF with bandlike areas of subsegmental atelectasis in the lower lung desir. 3. Small amount of ascites may be related to peritoneal dialysis. 4. Increase in pericardial fat deposition and mild cardiomegaly. Chest X-Ray 08/07/19 12:52 IMPRESSION: Off the left hilum there is questionable stenosis changes consideration of CT recommended. There is plate atelectasis off the right hilum Arteriosclerotic heart disease. Discharge Plan Discharge Patient Disposition: Placed in Observation Clinical Impression: Peritoneal dialysis catheter in place, Chronic diastolic CHF (congestive heart failure), Chronic kidney disease, stage V, Tachycardia CAD (coronary artery disease) Qualifiers: Coronary Disease-Associated Artery/Lesion type: three affiliated artery [place] vs. transplanted heart: three affiliated heart Associated angina: without angina Qualified Code(s): I25.10 - Atherosclerotic heart disease of three affiliated coronary artery without angina pectoris Condition: Stable Referrals: Yovany Leonardo MD [Primary Care Provider] - Coding Level of Care Code ED [employer] [employer] for Chg Fwd Exam Comprehensive The documentation recorded by the Ish bernal Bridget Annette, accurately reflects the service I personally performed and the decisions made by , Yao Steele MD Aug 07, 2019 10:25
--- NOTE | 2019-08-07 11:21 | ECG_ITS ---
Measurements Intervals [place] Rate: 138 P: 246 MS: 165 QRS: -70 QRSD: 78 T: -85 QT: 359 QTc: 545 ECTOPIC ATRIAL TACHYCARDIA MARKED LEFT AXIS DEVIATION [QRS AXIS < -30] LOW QRS VOLTAGE IN EXTREMITY LEADS ANTEROLATERAL MYOCARDIAL INFARCTION, OF INDETERMINATE AGE MODERATE T-WAVE ABNORMALITY, CONSIDER INFERIOR ISCHEMIA Compared to ECG 08/01/2019 23:09:29 T-wave abnormality now present Possible ischemia now present Sinus rhythm no longer present Myocardial infarct finding still present Electronically Signed On 08-07-2019 16:12:12 LOG ROLLER by Soraya Ignacio M.D. [email or web address]
--- NOTE | 2019-08-07 11:25 | PC.NURSE ---
Patient arrived via wheelchair. 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 Uses wheelchair for transportation. Patient has dressing present on the left lower extremity, states she has home care that dresses the wound and is supposed to be contacted by wound care clinic to set up outpatient treatment.
[2019-08-07 11:43] LABS: Glucose Point of Care 211 mg/dL (70-110)
--- NOTE | 2019-08-07 12:01 | CT_ITS ---
WS: [id number] CT CHEST ANGIOGRAPHY WITH REFORMATS HISTORY: chest discomfort, tachycardia, mild hypoxia TECHNIQUE: Contiguous axial images are obtained through the chest during arterial injection of intrav enous contrast. Images are reconstructed to evaluate the pulmonary arteries. MIP imaging also reviewe d. All CT scans at [facility] use at least one of these dose optimization techniques: aut omated exposure control; mA and/or kV adjustment per patient size (includes targeted exams where dose is matched to clinical indication); or iterative reconstruction. CONTRAST: Omnipaque 350; 95 mL IV. DLP: 471.61 mGy.cm COMPARISON: 10/22/2017 Very good opacification of the pulmonary arteries. No filling defects are identified through the casie rity of the segmental and some of the subsegmental branches. Pulmonary artery size is normal. Mild at herosclerosis aorta. Mild enlargement of the heart with moderate amount of pericardial fat. No RIGHT heart strain. There is mild haziness and groundglass attenuation throughout both lungs. There are a few scattered g ranulomata. Bandlike areas of atelectasis posteriorly and in the lower lung desir. No significant pl eural effusion. No adenopathy. Imaging of the upper abdomen demonstrates a small amount of ascites adjacent to the liver and spleen. There is also ascites adjacent to the stomach. This ascites has been present on prior studies. Prior cholecystectomy. Visualized adrenal glands are negative although incompletely visualized. Increase in thoracic kyphosis. No osteoblastic or osteolytic bone disease. CT/CT angio chest PE protcl [id number] IMPRESSION: 1. No pulmonary embolism. 2. Mild CHF with bandlike areas of subsegmental atelectasis in the lower lung desir. 3. Small amount of ascites may be related to peritoneal dialysis. 4. Increase in pericardial fat deposition and mild cardiomegaly.
[2019-08-07] MEDS: sodium chloride 0.9% 1,000 ML 999 ML IV (12:34)
[2019-08-07 12:47] LABS: Basophils % 0.2 %; Eosinophils # 0.1 10^3/uL (0.0-0.8); Eosinophils % 2.2 %; Hematocrit 36.6 % (37.0-47.0); Hemoglobin 12.2 g/dL (11.5-15.3); Lymphocytes # 1.2 10^3/uL (0.8-4.8); Lymphocytes % 19.1 %; Mean Corpuscular HGB Conc 33.3 g/dL (30.0-36.0); Mean Corpuscular Hemoglobin 34.3 pg (28.0-34.0); Mean Corpuscular Volume 102.8 fL (81-99); Mean Platelet Volume 10.4 fL (7.4-10.4); Monocytes # 0.4 10^3/uL (0.2-0.9); Monocytes % 6.6 %; Neutrophils # 4.5 10^3/uL (1.8-7.7); Neutrophils % 71.4 %; Nucleated Red Blood Cells % 0 %; Platelet Count 198 10^3/cmm (130-400); Red Blood Count 3.56 10^6/uL (4.1-5.3); Red Cell Distribution Width 14.7 % (12.1-15.1); White Blood Count 6.3 10^3/uL (4.0-10.0)
--- NOTE | 2019-08-07 12:52 | XR_ITS ---
WS: [id number] XR chest 1V portable [id number] REASON FOR EXAM: chest pain FINDINGS: The left hilum suggest partial obstruction and a mass cannot be excluded. Follow-up with CT recommended. Off the right lower hilum is a plate like atelectasis similar to the previous exam August 01, 2019. The heart is enlarged with arteriosclerotic changes. The apices are normal. XR/XR chest 1V portable [id number] IMPRESSION: Off the left hilum there is questionable stenosis changes consideration of CT r ecommended. There is plate atelectasis off the right hilum Arteriosclerotic heart disease.
[2019-08-07 12:56] LABS: D Dimer 1.27 ug/mIFEU (0-0.59)
[2019-08-07] MEDS: iodixanol 320 mg/mL 100mL Btl IV (13:07)
[2019-08-07 13:13] LABS: Alanine Aminotransferase 12 U/L (0-33); Albumin Level 3.4 g/dL (3.5-5.2); Alkaline Phosphatase 102 IU/L (35-105); Anion Gap 19.7 (5-19); Aspartate Amino Transferase 16 U/L (0-32); Blood Urea Nitrogen 26 mg/dL (6-20); Calcium 10.2 mg/dL (8.5-10.5); Carbon Dioxide 25 mmol/L (22-29); Chloride 94 mmol/L (98-107); Globulin 3.3 g/dL (1.3-4.6); Glucose 211 mg/dL (65-115); Magnesium 1.6 mg/dL (1.7-2.3); NT Pro B Type Natriuretic Pept 4221 pg/mL (0-125); Potassium 3.7 mmol/L (3.5-5.1); Sodium 135 mmol/L (136-145); Total Bilirubin 0.6 mg/dL (0.15-1.2); Total Protein 6.7 g/dL (6.6-8.7)
[2019-08-07 13:18] LABS: Troponin(5th) Baseline 175 ng/mL (0-10)
--- NOTE | 2019-08-07 13:21 | ECG_ITS ---
Measurements Intervals [place] Rate: 80 P: 263 FL: 179 QRS: -65 QRSD: 79 T: -87 QT: 387 QTc: 447 ECTOPIC ATRIAL RHYTHM WITH FREQUENT SUPRAVENTRICULAR PREMATURE COMPLEXES IN A BIGEMINAL PATTERN LOW QRS VOLTAGE IN EXTREMITY LEADS [QRS DEFLECTION < 0.5 mV IN LIMB LEADS] INFERIOR MYOCARDIAL INFARCTION , OF INDETERMINATE AGE [40+ ms Q WAVE AND/OR ABNORMALITY IN II/aVF] ANTEROLATERAL MYOCARDIAL INFARCTION , OF INDETERMINATE AGE [40+ ms Q WAVE IN I/ I/aVL/V3-V6] Compared to ECG 08/01/2019 23:09:29 Ectopic atrial rhythm now present Sinus rhythm no longer present Left-axis deviation no longer present Myocardial infarct finding still present Electronically Signed On 08-07-2019 20:31:25 MANAGER OFFICE by Gerald Smith M.D. [email or web address]
[2019-08-07] MEDS: metoprolol tartrate 1 mg/1 mL SDV 5 mL 5 MG IV (14:27)
--- NOTE | 2019-08-07 15:47 | USCV_ITS ---
Rizwana Herzog Age: 54 Gender: F : 1965 Exam Date: 08/07/2019 16:19 Ordering Phys: Sheri Wang DO Technologist: Bradly Ramon Exam Location: [facility] – [place] Indication: REDUCED LV FUNCTION BP: 106 / 77 HR: 87 Rhythm: Sinus Technical Quality: Technically difficult study MEASUREMENTS (Male / Female) Normal Values 2D ECHO LV Diastolic Diameter PLAX 2.9 cm 4.2 - 5.9 / 3.9 - 5.3 cm LV Systolic Diameter PLAX 2.4 cm IVS Diastolic Thickness 0.9 cm 0.6 - 1.0 / 0.6 - 0.9 cm IVS Systolic Thickness 1.4 cm LVPW Diastolic Thickness 1.0 cm 0.6 - 1.0 / 0.6 - 0.9 cm LVPW Systolic Thickness 1.0 cm LVOT Diameter 2.1 cm LV Ejection Fraction 2D Teich 36.7 % LV Ejection Fraction MOD 2C 48.7 % LV Ejection Fraction 2C AL 47.6 % LA Diameter 3.9 cm LA Width 3.8 cm LA Height 4.8 cm RA Width 3.4 cm RA Height 3.8 cm M-MODE LV Diastolic Diameter MM 4.7 cm 4.2 - 5.9 / 3.9 - 5.3 cm LV Systolic Diameter MM 2.9 cm LV Ejection Fraction MM Teich 70.2 % IVS Diastolic Thickness MM 0.9 cm 0.6 - 1.0 / 0.6 - 0.9 cm IVS Systolic Thickness MM 1.6 cm LVPW Diastolic Thickness MM 0.9 cm 0.6 - 1.0 / 0.6 - 0.9 cm LVPW Systolic Thickness MM 1.8 cm RV Diastolic Diameter MM 1.5 cm Aortic Annulus Diameter 3.1 cm LA Ao Ratio MM 1.2 MV E Point Septal Separation 1.0 cm FINDINGS Left Ventricle Normal left ventricular cavity size. Normal left ventricular systolic function. Left ventricular ejection fraction is estimated at 60 %. No diagnostic regional wall motion abnormality. Right Ventricle Normal right ventricular size and systolic function. Right Atrium Right atrium not well visualized. Left Atrium Left atrium not well visualized. Mitral Valve Mitral valve not well visualized. Aortic Valve Aortic valve not well visualized. Mildly thickened and calcified aortic valve. Tricuspid Valve Tricuspid valve not well visualized. Pulmonic Valve Pulmonic valve not well visualized. Pericardium No pericardial effusion. Aorta Normal size aortic root and proximal ascending aorta. CONCLUSIONS 1. This is a technically difficult and limited 2 D study. 2. Normal left ventricular cavity size and systolic function. Left ventricular ejection fraction is estimated at 60 %. No diagnostic regional wall motion abnormality. 3. Normal right ventricular size and systolic function. 4. When compared to previous echocardiogram from 08/02/2019, there may not have been any significant change. Soraya Ignacio MD (Electronically Signed) Final Date: 07 August 2019 17:57 S
--- NOTE | 2019-08-07 15:47 | PM.HP ---
Providers/Chief Complaint Admitting Physician: Sheri Wang DO Primary Care Provider: Yovany Leonardo MD Chief Complaint: LOW BP AND HIGH HR History of Present Illness Rizwana Herzog is a 54 year old female that presented to the emergency department today for increased heart rate. He reported that she was recently admitted to the hospital due to concern for low blood pressure and metoprolol, Bumex and isosorbide were held at time of discharge. She stated that she woke up this morning after taking off her BiPAP and noticed slight pressure in her chest and elevated heart rate. She reports now that her chest pain has resolved. She denies any fevers, no sick contacts, no cough or sputum production. Patient was somewhat tearful and reported that she has had many recent healthcare complications and admissions to the hospital. She stated that her blood pressures have improved since her previous discharge, however now with the onset of tachycardia today she had some symptoms of palpitations. Patient was seen and evaluated in the emergency department noted to have concern for tachycardia, she was given Cardizem bolus and then had decrease in her blood pressure. She had elevated d-dimer, therefore CTA of the chest was performed which was negative for pulmonary embolism. She was then given IV metoprolol at 1415 and had improvement of her heart rate into the 80s. Patient is being admitted for observation due to concern for sinus tachycardia with recent medication adjustments and concern for dehydration, she was given 1 L of fluid in the ED. Patient reports that she has been on peritoneal dialysis for 2 years, followed closely by cardiology and nephrology in [facility] and reported that she is in hopes of being on the transplant list soon. Review of Systems Const: Denies: fever or chills Eyes: Denies: change in vision ENMT: Denies: nasal congestion Card: Reports: palpitations; Denies: chest pain or edema Resp: Denies: shortness of breath, productive cough or coughing up blood GI: Denies: abdominal pain, nausea, vomiting, diarrhea, constipation, blood in stool or black tarry stool : Reports: other (Minimal urine output due to being on dialysis) Musc: Denies: extremity pain or muscle cramps Skin/Breast: Denies: rash or new lesion Neuro: Denies: headache or dizziness Psych: Denies: anxiety or depression Endo: Denies: hot flashes Refugio/Lymph: Denies: easy bruising or easy bleeding Medications/Allergies Home Medications Medication Instructions Recorded Confirmed Last Taken Type ferric citrate [Auryxia] 210 mg PO TIDWM 08/07/19 08/07/19 Unknown History insulin glargine [Lantus Solostar See Rx Instructions .ROUTE .COMPLEX 08/07/19 08/07/19 Unknown History U-100 Insulin] potassium chloride 10 meq PO DAILY 08/07/19 08/07/19 Unknown History Allergies Allergy/AdvReac Type Severity Reaction Status Date / Time metformin [From Glucophage] Allergy Unknown Verified 06/30/19 16:44 venlafaxine [From Effexor] Allergy ADR-Shakine Verified 06/30/19 16:44 ss PFSH Acute PFSH: Medical History Anxiety CAD (coronary artery disease) Chronic diastolic CHF (congestive heart failure) Chronic kidney disease, stage V On peritoneal dialysis. Follows with Dr Ann. Depression Diabetes Insulin-dependent Gastroparesis GERD (gastroesophageal reflux disease) HTN (hypertension) Hyperlipidemia Hypothyroidism Partial nontraumatic amputation of left foot (~06/2019) Peripheral vascular disease TIA (transient ischemic attack) Vitamin D deficiency Surgical History History of appendectomy History of heart artery stent History of hysterectomy History of left heart catheterization History of right below knee amputation Peritoneal dialysis catheter in place Family History Denies family history of CAD (coronary artery disease) Clotting disorder Dementia Bleeding disorder Social History Smoking and tobacco status: never smoked Alcohol intake: never Household members: spouse and family Vitals/I&O/Wt Last Vital Signs Temp 98.5 F 08/07/19 10:29 Pulse 135 H 08/07/19 12:00 Resp 18 08/07/19 12:00 BP 105/76 08/07/19 12:00 Pulse Ox 96 08/07/19 12:00 Weight last 48 hrs Weight 97.522 kg Physical Exam Const: COMMON NORMALS: oriented x3 and alert GENERAL APPEARANCE: cooperative ORIENTATION/CONSCIOUSNESS: Yes awake, Yes oriented to person, Yes oriented to place and Yes oriented to time HENMT: COMMON NORMALS: normocephalic and head/scalp atraumatic HEAD & SCALP: normocephalic and atraumatic Eye: COMMON NORMALS: PERRL PUPIL: Yes PERRL Neck/C-Spine: COMMON NORMALS: supple GENERAL: Yes normal visual inspection Resp: COMMON NORMALS: normal respiratory effort and clear to auscultation bilaterally EFFORT & INSPECTION: Yes able to speak in complete sentences AUSCULTATION: clear to auscultation bilaterally, no rhonchi and no wheezes Cardio: COMMON NORMALS: regular rate, regular rhythm and no murmurs RATE: regular rate RHYTHM: regular rhythm GI: COMMON NORMALS: soft to palpation and non-tender PALPATION: Yes soft OTHER: PD catheter in place, no surrounding erythema or drainage, obese, soft, nontender, normal bowel sounds : BLADDER/KIDNEY EXAM: Yes no CVA tenderness Back/Pelvis: COMMON NORMALS: no CVA tenderness Extremity: NARRATIVE EXTREMITY EXAM: Status post BKA on the right Neuro: COMMON NORMALS: oriented x3, CN's II-XII intact bilaterally, moves all extremities and no focal motor deficits SENSORIUM/ORIENTATION: Yes alert, Yes oriented to person, Yes oriented to place and Yes oriented to time SPEECH: speech normal Psych: COMMON NORMALS: mental status grossly normal and cooperative Skin: NARRATIVE SKIN EXAM: Status post amputation of the fifth toe on the left foot, no surrounding erythema Data : 08/07/19 12:28 08/07/19 12:28 CTA Chest: Radiologist's impression: Image personally reviewed, report as read by radiologist: IMPRESSION: 1. No pulmonary embolism. 2. Mild CHF with bandlike areas of subsegmental atelectasis in the lower lung desir. 3. Small amount of ascites may be related to peritoneal dialysis. 4. Increase in pericardial fat deposition and mild cardiomegaly. CXR: I personally reviewed and interpreted this imaging study as follows: Radiologist's impression: IMPRESSION: Off the left hilum there is questionable stenosis changes consideration of CT recommended. There is plate atelectasis off the right hilum Arteriosclerotic heart disease. A&P Assessment and plan (1) Tachycardia: Tachycardia with a heart rate into the 140s on arrival to the ED. Patient given IV fluids and Cardizem initially. Continued to have tachycardia with improvement in blood pressure. Monitor closely on telemetry, d-dimer was obtained and elevated therefore CTA of the chest was performed which was negative for PE. Patient had elevated troponin but also in the setting of end-stage renal disease. It was reported by ER physician that a bedside echocardiogram was obtained and patient appeared to have a diminished LVEF. Recent echocardiogram reviewed which showed LVEF of 60%, however due to this concern for change will obtain limited echocardiogram for further evaluation. Recommended due to patient's recent discontinuation of metoprolol to give IV metoprolol and restart home metoprolol due to improvement in blood pressure. IV metoprolol given x1 and patient had improvement of heart rate into the 80s. Will continue on metoprolol tartrate 25 mg twice daily with close monitoring on telemetry overnight. Patient does not appear to have atrial flutter based on repeat EKG, therefore will hold off on anticoagulation Status: Acute Code(s): R00.0 - Tachycardia, unspecified (2) CAD (coronary artery disease): s/p Stent placement x1 in [place], [place] 10/2018 Limited ECHO ordered to assess if any change in LVEF Status: Chronic Qualifiers: Coronary Disease-Associated Artery/Lesion type: [place] artery [place] vs. transplanted heart: [place] heart Associated angina: without angina Qualified Code(s): I25.10 - Atherosclerotic heart disease of [place] coronary artery without angina pectoris Code(s): I25.10 - Atherosclerotic heart disease of [place] coronary artery without angina pectoris (3) Hypothyroidism: Will check TSH Status: Acute Qualifiers: Hypothyroidism type: acquired Qualified Code(s): E03.9 - Hypothyroidism, unspecified Code(s): E03.9 - Hypothyroidism, unspecified (4) Diabetes: On lantus 30 units in AM and 40 at night, will decrease so she does not become hypoglycemic in the acute setting and place on sliding scale insulin as needed Status: Acute Qualifiers: Diabetes mellitus type: type 2 Diabetes mellitus assistant terminal manager insulin use: with assistant terminal manager use Diabetes mellitus complication status: with neurologic complications Diabetes mellitus complication detail: with polyneuropathy Qualified Code(s): E11.42 - Type 2 diabetes mellitus with diabetic polyneuropathy; Z79.4 - exterminator helper termite (current) use of insulin Code(s): E11.9 - Type 2 diabetes mellitus without complications (5) Chronic diastolic CHF (congestive heart failure): Continue to monitor fluid status closely, plan for peritoneal dialysis tonight per nephrology. Repeat limited echocardiogram ordered Status: Acute Code(s): I50.32 - Chronic diastolic (congestive) heart failure (6) Acute hypotension: Recently admitted for acute hypotension and Imdur, metoprolol and Bumex were all held at discharge. Will restart home metoprolol and continue to monitor blood pressure closely. Blood pressure remains within normal limits at this time. Status: Acute Code(s): I95.9 - Hypotension, unspecified (7) ESRD (end stage renal disease): Followed by nephrology in [place]. On peritoneal dialysis. Dr. Mcfarland, nephrology, consulted. Appreciate recommendations and assistance in patient's care. Status: Acute Code(s): N18.6 - End stage renal disease Additional A&P Information Elevated troponin: Likely secondary to chronic renal disease and tachycardia on admission, repeat remains relatively unchanged. We will continue to monitor on telemetry with repeat EKG and troponin hours from baseline DVT prophylaxis: Heparin Diet: Renal, dialysis diet Attestations Medical Necessity Statement*: Observation due to tachycardia with recent admission for hypotension. 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 transplanted heart: [place] heart Associated angina: without angina Hypothyroidism E03.9 Hypothyroidism type: acquired Diabetes E11.42; Z79.4 Diabetes mellitus type: type 2 Diabetes mellitus usp insulin use: with usp use Diabetes mellitus complication status: with neurologic complications Diabetes mellitus complication detail: with polyneuropathy Chronic diastolic CHF (congestive heart failure) I50.32 Acute hypotension I95.9 ESRD (end stage renal disease) N18.6
[2019-08-07 16:01] LABS: Thyroid Stimulating Hormone 6.54 uIU/mL (0.27-4.20)
--- NOTE | 2019-08-07 16:57 | P.CONIM_ITS ---
Providers/Reason For Consult Consulting Physican/Specialty*: Dr Mcfarland Reason for Consult*: Eval and mgmt of ESRD Primary Care Provider: Yovany Leonardo MD History of Present Illness History of Present Illness Rizwana Herzog is a 54 year old female presenting with weakness and exertional dyspnea, found to have tachycardia. She received iv and po metoprolol and a fluid bolus and her heart rate is now controlled. She has been consistent with her PD. Usually uses 3 x bags of 2.5% but is unclear on the bag vol, she thinks roughly 2L, and is on extraneal during the day but is unsure of the volume. No issues with her PD recently, with drains not painful, clear effluent. Minimal edema in the extremity. She denies uremic Sx. Review of Systems Const: Reports: change in appetite and fatigue Card: Reports: shortness of breath on exertion; Denies: chest pain, irregular heart rhythm or edema Resp: Reports: shortness of breath; Denies: productive cough GI: Denies: abdominal pain Endo: Denies: excessive urination or excessive thirst Meds/Allergies Home Medications and Allergies Home Medications Medication Instructions Recorded Confirmed Type aspirin 81 mg PO DAILY 06/25/19 08/07/19 History atorvastatin 40 mg PO DAILY 06/25/19 08/07/19 History clopidogrel 75 mg PO DAILY 06/25/19 08/07/19 History isosorbide mononitrate 30 mg PO DAILY 06/25/19 08/01/19 History levothyroxine 224 mcg PO DAILY 06/25/19 08/07/19 History metoprolol succinate 25 mg PO DAILY 06/25/19 08/01/19 History pantoprazole 40 mg PO DAILY 06/25/19 08/07/19 History bumetanide 1 mg PO BID 06/30/19 08/01/19 History multivitamin [Multiple Vitamins] 1 tab PO DAILY 06/30/19 08/07/19 History paricalcitol [Zemplar] See Rx Instructions .ROUTE .COMPLEX 06/30/19 08/07/19 History nitroglycerin 0.4 mg SUBLINGUAL Q5M PRN 08/01/19 08/07/19 History tramadol 50 mg PO TID PRN 08/01/19 08/07/19 History ferric citrate [Auryxia] 210 mg PO TIDWM 08/07/19 08/07/19 History insulin glargine [Lantus Solostar See Rx Instructions .ROUTE .COMPLEX 08/07/19 08/07/19 History U-100 Insulin] potassium chloride 10 meq PO DAILY 08/07/19 08/07/19 History Allergies Allergy/AdvReac Type Severity Reaction Status Date / Time metformin [From Glucophage] Allergy Unknown Verified 06/30/19 16:44 venlafaxine [From Effexor] Allergy ADR-Shakine Verified 06/30/19 16:44 ss PFSH Acute PFSH: Medical History (Updated 08/07/19 @ 16:25 by Sheri Wang DO) Anxiety CAD (coronary artery disease) Chronic diastolic CHF (congestive heart failure) Chronic kidney disease, stage V On peritoneal dialysis. Follows with Dr Ann. Depression Diabetes Insulin-dependent ESRD (end stage renal disease) Gastroparesis GERD (gastroesophageal reflux disease) HTN (hypertension) Hyperlipidemia Hypothyroidism Partial nontraumatic amputation of left foot (~06/2019) Peripheral vascular disease TIA (transient ischemic attack) Vitamin D deficiency Surgical History History of appendectomy History of heart artery stent History of hysterectomy History of left heart catheterization History of right below knee amputation Peritoneal dialysis catheter in place Family History Denies family history of CAD (coronary artery disease) Clotting disorder Dementia Bleeding disorder Social History Smoking and tobacco status: never smoked Alcohol intake: never Household members: spouse and family Vitals/I&O/Wt Last Vital Signs Temp 98.5 F 08/07/19 10:29 Pulse 81 08/07/19 15:30 Resp 16 08/07/19 15:30 BP 128/67 08/07/19 15:30 Pulse Ox 96 08/07/19 15:30 Weight last 48 hrs Weight 97.522 kg Physical Exam Const: COMMON NORMALS: no apparent distress and average body habitus HENMT: COMMON NORMALS: normocephalic and head/scalp atraumatic HEAD & SCALP : normocephalic and atraumatic Neck/C-Spine: COMMON NORMALS: no JVD Lymph: LYMPHATIC: no lymphadenopathy noted Chest: COMMONS NORMALS: inspection of chest normal and palpation of chest normal Resp: COMMON NORMALS: normal respiratory effort Cardio: COMMON NORMALS: no JVD, regular rate and regular rhythm RATE: regular rate RHYTHM: regular rhythm Extremity: COMMON NORMALS: normal to inspection and full ROM A&P Additional A&P Information 1. ESRD on PD - No acute indication for PD this evening and if she remains in house tomorrow will prescribe PD for her - dose emds for eGFR < 15 on PD 2. Tachycardia - responding to B-blockers - mgmt per Dr Wang 3. Hemodynamics otherwise look good 4. 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
[2019-08-07 17:03] LABS: Free T4 Free Thyroxine 1.43 ng/dL (0.82-1.77)
[2019-08-07] MEDS: metoprolol tartrate 25 mg Tablet PO (17:21)
--- NOTE | 2019-08-07 17:21 | ECG_ITS ---
Measurements Intervals [place] Rate: 87 P: 258 OR: 172 QRS: -81 QRSD: 81 T: 267 QT: 388 QTc: 467 ECTOPIC ATRIAL RHYTHM WITH FREQUENT SUPRAVENTRICULAR PREMATURE COMPLEXES LOW QRS VOLTAGE [QRS DEFLECTION < 0.5/1.0 mV IN LIMB/CHEST LEADS] INFERIOR MYOCARDIAL INFARCTION , OF INDETERMINATE AGE [40+ ms Q WAVE AND/OR ST/T ABNORMALITY IN II/aVF] ANTEROLATERAL MYOCARDIAL INFARCTION , OF INDETERMINATE AGE [40+ ms Q WAVE IN I/aVL/V3-V6] Compared to ECG 08/07/2019 10:34:57 Ectopic atrial rhythm now present Left-axis deviation no longer present T-wave abnormality no longer present Possible ischemia no longer present Myocardial infarct finding still present Electronically Signed On 08-07-2019 20:33:32 METAL ROOFING MECHANIC by Gerald Smith M.D. [email or web address]
[2019-08-07] MEDS: heparin 5,000 unit/mL INJ 1 mL 5000 UNIT SUBCUT (19:03)
[2019-08-07 21:02] LABS: Glucose Point of Care 147 mg/dL (70-110)
[2019-08-07 21:40] LABS: Troponin 5 6HR 173.4 ng/mL (0-10); Troponin 5 6HR Delta -1.6 ng/L (0-12)
[2019-08-08] VITALS (9 sets, daily range): BP systolic 90–109; BP diastolic 56–75; PULSE 61–113; RESP 16–20; TEMP 36.4–37.2; O2SAT 91–100
[2019-08-08] MEDS: nitroglycerin 0.4 mg sublingual Tablet SUBLINGUAL (02:14)
[2019-08-08] MEDS: ondansetron 2 mg/ML SDV 2 mL 4 MG IVP (02:35)
--- NOTE | 2019-08-08 02:47 | PM.EVENT ---
Event Note Event Note: Ms. Herzog started experiencing substernal chest pain around 2:30 AM I examined the patient on stat basis, She was complaining of chest heaviness which she experienced in the morning before she arrived to the hospital but this time she is saying the intensity and character is different she is describing it as heaviness with achy dull pain 6/10 radiating towards her left arm and she is experiencing nausea with it Physical exam revealed Heart rate 70, Blood pressure 119 systolic which dropped to 98 after given 1 dose of sublingual nitro Irregular pulse EOMI, PERRLA, Volume overloaded clinically Variable S1-S2 Distended abdomen, with obesity, Neurologically nonfocal exam Patient not in any respiratory distress however she uses BiPAP at night at home She was given 1 dose of sublingual nitro which reduced the intensity of the pain to 4/10 and then to 0 after 5 minutes 2 EKGs were obtained, which did not show any new changes from previous EKG, I did not notice any tachycardia on EKGs, however ectopic atrial beats are still present Blood sugar was obtained which was normal Plan: Avoid using subsequent doses of sublingual nitro because of hypotension after first dose I would go ahead and start heparin drip, she has been having recurrent chest pain at this time it is substernal radiating towards her arms and relieved with nitro Currently reevaluate for cardiology consultation in the morning Currently blood pressure 98/60, heart rate 70, ectopic beats present on EKG, patient is feeling better Closely monitor overnight
[2019-08-08 02:48] LABS: Glucose Point of Care 139 mg/dL (70-110)
[2019-08-08] MEDS: heparin 5,000 unit/mL INJ 1 mL IV (02:50)
[2019-08-08] MEDS: heparin drip 25,000 UNIT/500 ML PREMIX 29 UNIT IV (02:52)
--- NOTE | 2019-08-08 04:21 | PC.NURSE ---
Entered patient's room to change telemetry box batteries, upon entering patient found to be awake and pale, when asked if patient was ok, she stated she was having chest heaviness and pain. Vital signs obtained, physician notified, nitro x1 given, EKG obtained. Patient states feeling nauseated and is diaphoretic. Zofran given and blood sugar checked. Physician at bedside. Orders received to start heparin drip. Patient stating symptoms have resolved at this time. Will continue to monitor patient. Advised patient to call if symptoms return. Verbalized understanding.
[2019-08-08 05:11] LABS: Anion Gap 17.7 (5-19); Blood Urea Nitrogen 34 mg/dL (6-20); Calcium 9.5 mg/dL (8.5-10.5); Carbon Dioxide 25 mmol/L (22-29); Chloride 97 mmol/L (98-107); Glomerular Filtration Rate 6.2 mL/min (90-130); Glucose 173 mg/dL (65-115); Magnesium 1.5 mg/dL (1.7-2.3); Osmolality Calculated 283 mOsm/kg (285-295); Phosphorus 3.6 mg/dL (2.5-4.5); Potassium 3.7 mmol/L (3.5-5.1); Sodium 136 mmol/L (136-145)
[2019-08-08 06:45] LABS: Glucose Point of Care 186 mg/dL (70-110)
[2019-08-08 08:06] LABS: Platelet Count 218 10^3/cmm (130-400)
[2019-08-08] MEDS: levothyroxine 112 mcg Tablet 224 MCG PO (08:21)
[2019-08-08] MEDS: pantoprazole DR 40 mg Tablet PO (08:21)
[2019-08-08] MEDS: clopidogrel 75 mg Tablet PO (08:21)
[2019-08-08] MEDS: aspirin 81 mg Chew Tablet PO (08:22)
[2019-08-08] MEDS: atorvastatin 40 mg Tablet PO (08:22)
[2019-08-08] MEDS: metoprolol tartrate 25 mg Tablet PO ×2 (08:22→17:46)
[2019-08-08 09:32] LABS: Partial Thromboplastin Time > 250.0 SECONDS (23.9-36.7)
--- NOTE | 2019-08-08 10:14 | PM.PN ---
Subjective Subjective: Interval history: She feels ok now, did have some chest pressure in the night. Heparin gtt started and cardiology consulted. Hemodynamics stable this morning Vitals/I&O/Wt Last Vital Signs Temp 98.2 F 08/08/19 08:00 Pulse 72 08/08/19 08:00 Resp 18 08/08/19 08:00 BP 105/69 08/08/19 08:00 Pulse Ox 96 08/08/19 08:00 08/07/19 08/08/19 08/08/19 22:59 06:59 14:59 Intake Total 1000 / 1000 Balance 1000 / 1000 Weight last 48 hrs Weight 101.264 kg Weight 100.607 kg Weight 97.522 kg Physical Exam Const: COMMON NORMALS: no apparent distress and average body habitus HENMT: COMMON NORMALS: normocephalic and head/scalp atraumatic HEAD & SCALP: normocephalic and atraumatic Neck/C-Spine: COMMON NORMALS: no JVD Lymph: LYMPHATIC: no lymphadenopathy noted Chest: COMMONS NORMALS: inspection of chest normal and palpation of chest normal Resp: COMMON NORMALS: normal respiratory effort Cardio: COMMON NORMALS: no JVD, regular rate and regular rhythm RATE: regular rate RHYTHM: regular rhythm Extremity: COMMON NORMALS: normal to inspection and full ROM Data : 08/08/19 04:40 08/08/19 04:40 A&P Additional A&P Information 1. ESRD on PD - PD ordered for today if she remains in house; 2L of 2.5% solution, Q6 - dose meds for eGFR < 15 on PD 2. Tachycardia - responding to B-blockers - mgmt per Dr Wang - heparin gtt started - Dr Smith to consult 3. Hemodynamics otherwise look good 4. 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
[2019-08-08] MEDS: insulin glargine 100 units/1 mL 20 UNIT SUBCUT (10:45)
[2019-08-08 10:47] LABS: Partial Thromboplastin Time 165.6 SECONDS (23.9-36.7)
[2019-08-08 12:06] LABS: Glucose Point of Care 165 mg/dL (70-110)
[2019-08-08] MEDS: Dianeal low Ca w/2.5% dex 2,000 mL Bag 2000 ML INTRAPERIT (13:09)
--- NOTE | 2019-08-08 15:27 | PC.CHAP ---
Pastoral Care Encounter/Spiritual Assessment Type of Contact [x] Declined butcher's assistant visit [] Patient/Family/Request visit [] Outpatient visit [] Follow-up visit [] Physician referral [] Code/Alert [] Routine visit [] Staff referral [] Actively dying [] Patient sleeping [] Family support [] [] Out of room [] Palliative care [] [] Receiving care in room [] Pre-surgical visit [] Trauma [] Long length of stay [] ICU visit [] Other: Relational/Emotional Strength [] Patient feels connected with others/family/visitors/staff [] Distress [] Loneliness/isolation [] Abandonment Spirituality of Patient [] Person of Talya [] Attends Faith of their [place]a [] Believes in Prayer [] Reads Bible or Christianity materials [] There are Spiritual issues to be addressed Spudder Interventions [] Prayer [] Active listening [] Non-anxious presence [] Spiritual/emotional support [] Crisis/trauma care [] Spiritual counseling [] Bereavement support [] Provided bereavement packet [] Provided Bible/devotional materials [] Provided toy/stuffed animal, coloring book to patient or family member [] Provided Communion [] Anointing/[place] [] Salvation [] Completed spiritual assessment [] Other: Impact on Illness or Injury [] Angry [] Fearful [] Anxious [] Often cries [] Exhaustion [] Unable to work [] Unable to attend jew [] Unable to walk/stand [] Unable to read [] Unable to drive [] Unable to eat/drink [] Unable to sleep [] Unable to be with family [] Patient intubated [] Other: Summary Declined butcher's assistant visit Time spent with patient
--- NOTE | 2019-08-08 15:46 | PM.PN ---
Subjective Subjective: Interval history: Patient resting comfortably in bed this morning at time of exam. She reported that she had an episode of chest pain overnight. Reported that it felt different than her previous heart disease. She stated that she did not have any diaphoresis or shortness of breath. No lightheadedness or dizziness. It occurred while she was sleeping and it did awaken her from sleep. Radiating some into her left arm. Vitals/I&O/Wt Last Vital Signs Temp 97.5 F L 08/08/19 15:09 Pulse 61 08/08/19 15:09 Resp 16 08/08/19 15:09 BP 96/67 08/08/19 15:09 Pulse Ox 100 08/08/19 15:09 08/08/19 08/08/19 08/08/19 06:59 14:59 22:59 Intake Total 240 / 240 Balance 240 / 240 Weight last 48 hrs Weight 101.264 kg Weight 100.607 kg Weight 97.522 kg Physical Exam Const: COMMON NORMALS: oriented x3 and alert GENERAL APPEARANCE: cooperative ORIENTATION/CONSCIOUSNESS: Yes awake, Yes oriented to person, Yes oriented to place and Yes oriented to time HENMT: COMMON NORMALS: normocephalic and head/scalp atraumatic HEAD & SCALP: normocephalic and atraumatic Eye: COMMON NORMALS: PERRL PUPIL: Yes PERRL Neck/C-Spine: COMMON NORMALS: supple GENERAL: Yes normal visual inspection Resp: COMMON NORMALS: normal respiratory effort and clear to auscultation bilaterally EFFORT & INSPECTION: Yes able to speak in complete sentences AUSCULTATION: clear to auscultation bilaterally, no rhonchi and no wheezes Cardio: COMMON NORMALS: regular rate, regular rhythm and no murmurs RATE: regular rate RHYTHM: regular rhythm GI: COMMON NORMALS: soft to palpation and non-tender PALPATION: Yes soft OTHER: PD catheter in place, no surrounding erythema or drainage, obese, soft, nontender, normal bowel sounds : COMMON NORMALS: Yes no CVA tenderness BLADDER/KIDNEY EXAM: Yes no CVA tenderness Back/Pelvis: COMMON NORMALS: no CVA tenderness Extremity: NARRATIVE EXTREMITY EXAM: Status post BKA on the right Neuro: COMMON NORMALS: oriented x3, CN's II-XII intact bilaterally, moves all extremities and no focal motor deficits SENSORIUM/ORIENTATION: Yes alert, Yes oriented to person, Yes oriented to place and Yes oriented to time SPEECH: speech normal Psych: COMMON NORMALS: mental status grossly normal and cooperative Skin: NARRATIVE SKIN EXAM: Status post amputation of the fifth toe on the left foot, no surrounding erythema Data : 08/08/19 04:40 08/08/19 04:40 A&P Assessment and plan (1) Tachycardia: Tachycardia has improved with reinitiation of beta-chyna, metoprolol. Will continue at this time. Patient with ectopic atrial rhythm. No significant delta troponin. Patient did have one episode of chest pain overnight, will therefore further evaluate with stress test. Reports cardiac cath in October 2018 in [place]. Record request ordered. Consider cardiology consultation Status: Acute Code(s): R00.0 - Tachycardia, unspecified (2) CAD (coronary artery disease): s/p Stent placement x1 in [place], [place] 10/2018 Limited ECHO showed no acute changes Status: Chronic Qualifiers: Coronary Disease-Associated Artery/Lesion type: [place] artery [place] vs. transplanted heart: [place] heart Associated angina: without angina Qualified Code(s): I25.10 - Atherosclerotic heart disease of [place] coronary artery without angina pectoris Code(s): I25.10 - Atherosclerotic heart disease of [place] coronary artery without angina pectoris (3) Hypothyroidism: TSH slightly elevated with normal T3 and T4 Status: Acute Qualifiers: Hypothyroidism type: acquired Qualified Code(s): E03.9 - Hypothyroidism, unspecified Code(s): E03.9 - Hypothyroidism, unspecified (4) Diabetes: On lantus 30 units in AM and 40 at night, will decrease so she does not become hypoglycemic in the acute setting and place on sliding scale insulin as needed Status: Acute Qualifiers: Diabetes mellitus type: type 2 Diabetes mellitus long-term insulin use: with continuous churn buttermaker use Diabetes mellitus complication status: with neurologic complications Diabetes mellitus complication detail: with polyneuropathy Qualified Code(s): E11.42 - Type 2 diabetes mellitus with diabetic polyneuropathy; Z79.4 - jail (current) use of insulin Code(s): E11.9 - Type 2 diabetes mellitus without complications (5) Chronic diastolic CHF (congestive heart failure): Continue to monitor fluid status closely, plan for peritoneal dialysis tonight per nephrology. Status: Acute Code(s): I50.32 - Chronic diastolic (congestive) heart failure (6) Acute hypotension: Recently admitted for acute hypotension and Imdur, metoprolol and Bumex were all held at discharge. Blood pressures remained on the lower side. We will continue with metoprolol but continue to hold other medications Status: Acute Code(s): I95.9 - Hypotension, unspecified (7) ESRD (end stage renal disease): Followed by nephrology in [place]. On peritoneal dialysis. Dr. Mcfarland, nephrology, consulted. Appreciate recommendations and assistance in patient's care. Status: Acute Code(s): N18.6 - End stage renal disease Additional A&P Information Elevated troponin: Likely secondary to chronic renal disease and tachycardia on admission, repeat remains relatively unchanged. Plan for stress test tomorrow due to concern for chest pain DVT prophylaxis: Heparin Diet: Renal, dialysis diet Attestations Medical Necessity Statement*: Patient requires continued hospitalization due to soft blood pressure with ectopic atrial rhythm. Will change to inpatient admission. Continue dialysis. Coding Level of Care Code Acute Cuff Setter Overlock for Chg Fwd Diagnoses Tachycardia R00.0 CAD (coronary artery disease) I25.10 Coronary Disease-Associated Artery/Lesion type: [place] artery [place] vs. transplanted heart: [place] heart Associated angina: without angina Hypothyroidism E03.9 Hypothyroidism type: acquired Diabetes E11.42; Z79.4 Diabetes mellitus type: type 2 Diabetes mellitus long-term insulin use: with continuous churn buttermaker use Diabetes mellitus complication status: with neurologic complications Diabetes mellitus complication detail: with polyneuropathy Chronic diastolic CHF (congestive heart failure) I50.32 Acute hypotension I95.9 ESRD (end stage renal disease) N18.6
--- NOTE | 2019-08-08 18:11 | P.DS_ITS ---
Discharge Providers Date of Admission: 08/07/19 15:40 Date of Discharge: August 08, 2019 Attending Provider at Admission: Sheri Wang DO Attending Provider at Discharge: Sheri Wang DO Primary Care Provider: Yovany Leonardo MD Diagnoses at Discharge Discharge Diagnosis (1) Tachycardia: Status: Resolved (2) CAD (coronary artery disease): Status: Chronic Qualifiers: Associated angina: without angina Coronary Disease-Associated Artery/Lesion type: [place] artery [place] vs. transplanted heart: [place] heart Qualified Code(s): I25.10 - Atherosclerotic heart disease of [place] coronary artery without angina pectoris (3) Hypothyroidism: Status: Acute Qualifiers: Hypothyroidism type: acquired Qualified Code(s): E03.9 - Hypothyroidism, unspecified (4) Diabetes: Status: Acute Problem details: Insulin-dependent Qualifiers: Diabetes mellitus complication detail: with polyneuropathy Diabetes mellitus complication status: with neurologic complications Diabetes mellitus halfway insulin use: with halfway use Diabetes mellitus type: type 2 Qualified Code(s): E11.42 - Type 2 diabetes mellitus with diabetic polyneuropathy; 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 Patient had recently been admitted for hypotension and medications were adjusted, including bumex discontinued and metoprolol and imdur held. Patient was restarted on metoprolol after further lab work up and CTA of the chest which was negative for PE. Placed on telemetry and patient had episode of chest pain, therefore further work up with stress test was recommended. Repeat limited ECHO showed no change from prior week. Patient was initally in agreement to stay in the hospital for further work up then declined and wanted to be discharged to home. Discussed the need for close cardiology follow up and PCP follow up. Patient did now wish to have stress test performed so was discharged to home and inst ructed to restart metoprolol, as was restarted in the hospital. Physical Exam as documented on progress note from date of discharge Discharge Data Data Completed and Pending: Completed Studies During Hospitalization Category Date Time Status CT angio chest PE protcl [id number] Urge nt Cat Scan 08/07/19 12:01 Completed XR chest 1V sandra ble [id number] Stat Exams 08/07/19 12:52 Completed CV echo limited 9 3308 Routine Ultrasound 08/07/19 15:47 Completed Pending at discharge Category Date Time Status Sestamibi Stress Test Request Routi ne Exams 08/08/19 15:44 Ordered Basic Metabolic P adrianna AM LABS Lab 08/09/19 04:00 Ordered Drug Screen 12 Ur ine Stat Lab 08/07/19 12:03 Uncollected Platelet Count Q2 D Lab 08/10/19 04:00 Ordered Platelet Count Q2 D Lab 08/12/19 04:00 Ordered NM sheng perf SPECT r/s* [id number] Routin e Nuc Med 08/08/19 15:44 Ordered Labs from last 24 hours 08/08/19 08/08/19 08/08/19 11:59 10:00 08:35 Plt Count APTT 165.6 H* > 250.0 H* Sodium Potassium Chloride Carbon Dioxide Anion Gap BUN Creatinine GFR Calculation Glucose POC Glucose 165 Calculated Osmolal ity Calcium Phosphorus Magnesium Troponin I 6 Hour Troponin I Hi Sens Del 08/08/19 08/08/19 08/08/19 06:25 04:40 04:40 Plt Count 218 APTT Sodium 136 Potassium 3.7 Chloride 97 L Carbon Dioxide 25 Anion Gap 17.7 BUN 34 H Creatinine 6.9 H* GFR Calculation 6.2 L Glucose 173 H POC Glucose 186 Calculated Osmolal ity 283 L Calcium 9.5 Phosphorus 3.6 Magnesium 1.5 L Troponin I 6 Hour Troponin I Hi Sens Del 08/08/19 08/07/19 08/07/19 02:42 20:35 19:28 Plt Count APTT Sodium Potassium Chloride Carbon Dioxide Anion Gap BUN Creatinine GFR Calculation Glucose POC Glucose 139 147 Calculated Osmolal ity Calcium Phosphorus Magnesium Troponin I 6 Hour 173.4 H Troponin I Hi Sens Del -1.6 L Vitals: Last Vital Signs Temp 97.5 F L 08/08/19 15:09 Pulse 61 08/08/19 15:09 Resp 16 08/08/19 15:09 BP 96/67 08/08/19 15:09 Pulse Ox 100 08/08/19 15:09 Discharge Plan Discharge Patient Disposition: Home, Self-Care Condition: Stable Prescriptions: Continued atorvastatin 40 mg tablet 40 mg PO DAILY RF: 0 metoprolol succinate 50 mg tablet extended release 24 hr 25 mg PO DAILY RF: 0 Hold Instructions: Resume on 09/04/19. Hold until you see outpatient nephrology, resume if deemed appropriate clopidogrel 75 mg tablet 75 mg PO DAILY RF: 0 pantoprazole 40 mg tablet,delayed release (DR/EC) 40 mg PO DAILY RF: 0 levothyroxine 112 mcg Tablet 224 mcg PO DAILY RF: 0 aspirin 81 mg Tablet,Chewable 81 mg PO DAILY RF: 0 Lantus Solostar U-100 Insulin 100 unit/mL (3 mL) Insulin Pen See Rx Instructions .ROUTE .COMPLEX RF: 0 Auryxia 210 mg iron tablet 210 mg PO TIDWM RF: 0 multivitamin [Multiple Vitamins] Tablet 1 tab PO DAILY RF: 0 paricalcitol [Zemplar] 1 mcg capsule See Rx Instructions .ROUTE .COMPLEX RF: 0 tramadol 50 mg Tablet 50 mg PO TID PRN (Reason: Pain) RF: 0 nitroglycerin 0.4 mg Tablet, Sublingual 0.4 mg SUBLINGUAL Q5M PRN (Reason: Chest Pain) RF: 0 Held isosorbide mononitrate 30 mg Tablet Extended Release 24 Hr 30 mg PO DAILY RF: 0 Hold Instructions: Resume on 09/01/19. Hold until you see outpatient nephrology, resume if deemed appropriate Discontinued potassium chloride 10 mEq tablet extended release 10 meq PO DAILY RF: 0 bumetanide 1 mg Tablet 1 mg PO BID RF: 0 Hold Instructions: Resume on 09/05/19. resume when outpatient follow up with nephrology if deemed apporpriate Discharge Orders: Discharge Order (Routine); Ordered 08/08/19 Ordered By: Sheri Wang Referrals: Yovany Leonardo MD [Primary Care Provider] - 1-3 days (Please call Dr. Leonardo for a follow up appointment as soon as possible. ) Discharge Diet: Cardiac and Diabetic Discharge Activity: Increase activity as tolerated Patient Instructions: Coronary Artery Disease (DC), Dialysis Diet (DC), End- Stage Kidney Disease (DC) Activity Restrictions/Additional Instructions: Follow up with PCPin 1-3 days Follow up with cardiology office in 1-2 weeks Follow up with nephrology in 1-2 weeks Restarted metoprolol Continue to hold imdur and bumex Call your physician or present to the ED for any acute illness or concerns Discharge Date/Time: 08/08/19 19:16 Discharge Attestations Time Spent in Discharge Care*: greater than 30 min Status at Discharge: Cognitive status at discharge: cognitively intact , Behavioral status at discharge: cooperative , Quality Metrics Clinical Quality Measures During this hospital stay, did patient experience: None Coding Level of Care Code Acute Internal Controls Manager for Chg Fwd Diagnoses Tachycardia R00.0 CAD (coronary artery disease) I25.10 Associated angina: without angina Coronary Disease-Associated Artery/Lesion type: [place] artery [place] vs. transplanted heart: [place] heart Hypothyroidism E03.9 Hypothyroidism type: acquired Diabetes E11.42; Z79.4 Diabetes mellitus complication detail: with polyneuropathy Diabetes mellitus complication status: with neurologic complications Diabetes mellitus halfway insulin use: with halfway use Diabetes mellitus type: type 2 Chronic diastolic CHF (congestive heart failure) I50.32 Acute hypotension I95.9 ESRD (end stage renal disease) N18.6
--- NOTE | 2019-08-08 19:12 | PC.NURSE ---
Discharge summary patient educated about needing additional treatment but patient refused to stay for test in the morning. physician was notified and agreed to put discharge orders in even though patient needed stress test in AM. Patient is to set up follow up appointments as soon as possible. patients IV was discontinued and vital signs are within normal limits. understanding of discharge acknowledged. patient alert and oriented.
[2019-08-09 06:14] LABS: Glucose Point of Care 175 mg/dL (70-110)
== END 2019-08-08 19:16 | disposition home or self-care (01) | DRG 308 ==
LOC: ER 14:21 → MEDSURG 17:28
PROVIDERS: Internal Medicine; Admitting Provider Family Medicine; Emergency Provider Emergency Medicine; Family Provider Internal Medicine; PCP Internal Medicine; Visit Provider Family Medicine
DX: R00.0 Tachycardia, unspecified (principal); I50.33 Acute on chronic diastolic (congestive) heart failure; N18.6 End stage renal disease; I25.10 Atherosclerotic heart disease of native coronary artery without angina pectoris; E03.9 Hypothyroidism, unspecified; Z79.4 Long term (current) use of insulin; I95.9 Hypotension, unspecified; E11.22 Type 2 diabetes mellitus with diabetic chronic kidney disease; E11.42 Type 2 diabetes mellitus with diabetic polyneuropathy; D64.9 Anemia, unspecified; Z99.2 Dependence on renal dialysis; Z79.02 Long term (current) use of antithrombotics/antiplatelets; Z79.82 Long term (current) use of aspirin; Z79.890 Hormone replacement therapy; Z79.899 Other long term (current) drug therapy; Z88.8 Allergy status to other drugs, medicaments and biological substances; K21.9 Gastro-esophageal reflux disease without esophagitis; Z86.73 Personal history of transient ischemic attack (TIA), and cerebral infarction without residual deficits; E11.51 Type 2 diabetes mellitus with diabetic peripheral angiopathy without gangrene; Z89.432 Acquired absence of left foot; Z89.511 Acquired absence of right leg below knee; Z95.5 Presence of coronary angioplasty implant and graft
CPT/HCPCS: 12345; 36415; 36416; 71045; 71275; 80048; 80053; 82962; 83735; 83880; 84100; 84439; 84443; 84481; 84484; 85025; 85049; 85378; 85730; 93005; 93308; 96372; 96374; 96375; 99283; G0378; J1644; J1815; J2405; J3490; J7030; Q3014; Q9967

== ENCOUNTER 2019-08-17 10:38 | Outpatient (CLI) | payer MEDICARE, MEDICAID, SELFPAY | END 2019-08-17 10:39 | disposition home or self-care (01) | LOC: LAB 10:44 | PROVIDERS: Family Provider Internal Medicine; PCP Internal Medicine; Visit Provider Internal Medicine Nephrology | DX: Z01.89 Encounter for other specified special examinations (principal) | CPT/HCPCS: 11042 ==

== ENCOUNTER 2019-08-31 09:22 | Outpatient (CLI) | payer MEDICARE, MEDICAID, SELFPAY ==
--- NOTE | 2019-08-31 09:47 | MR_ITS ---
WS: [id number] MRI LEFT foot with and without contrast. HISTORY: Nonhealing ulcer LEFT foot near the fifth toe amputation site. Multiplanar, multisequence imaging is performed. COMPARISON: LEFT foot radiograph 08/17/2019 Status post amputation of the LEFT fifth toe. Edema in the fifth metatarsal head which does enhance. Area of enhancement measures 7 x 6 mm. The overlying soft tissue ulceration extends over length of 2. 3 cm. The soft tissue ulceration does not significantly enhance but there is enhancement of the soft tissues surrounding nearly the entire fourth metatarsal and also the mid to distal fifth metatarsal. No additional marrow signal abnormality. No abscess. MR/MR foot LT wo/w con [id number] IMPRESSION: 1. Status post amputation of the fifth toe. 2. Focal osteomyelitis involving the fifth metatarsal head measures 7 x 6 mm. 3. Additional extensive cellulitis surrounding the entire fourth and fifth met atarsals with no additional osteomyelitis.
== END 2019-08-31 09:23 | disposition home or self-care (01) ==
LOC: RADWPI 09:29
PROVIDERS: Family Provider Internal Medicine; PCP Internal Medicine; Visit Provider Thoracic Surgery (Cardiothoracic Vascular Surgery)
DX: L97.529 Non-pressure chronic ulcer of other part of left foot with unspecified severity (principal); Z89.422 Acquired absence of other left toe(s); M86.8X7 Other osteomyelitis, ankle and foot; L03.032 Cellulitis of left toe; M79.672 Pain in left foot
CPT/HCPCS: 73720; A9579

== ENCOUNTER 2019-09-04 14:27 | Outpatient (RCR) | payer MEDICARE, MEDICAID, SELFPAY ==
--- NOTE | 2019-08-17 10:56 | XR_ITS ---
WS: [id number] Left foot, 3 views, 08/17/2019 Clinical Data: PAIN/REDNESS/NON HEALING ULCER/?OSTEOMYELITIS Comparison: Left foot, 08/01/2019 Findings: There is amputation of the left fifth toe. Hammertoes deformities of the second through fourth toes c an be seen. There is a plantar spur. Again there is minimal narrowing of the left first MP joint. The soft tissues are normal. No bone destruction or erosion is seen. XR/XR foot LT min 3V* [id number] Impression: 1. Left fifth toe amputation. 2. Mild osteoarthritis of the left first MP joint.
--- NOTE | 2019-09-04 14:34 | XR_ITS ---
WS: [id number] CHEST 2 VIEWS HISTORY: BULLOUS DISEASE- IN PREPARATION FOR HYPERBARIC TREATMENT COMPARISON: 08/07/2019 Lungs: Linear platelike areas of atelectasis over the mid and lower RIGHT lung. LEFT lung is clear. Cardiac size: Normal. Mediastinum/Aorta: Normal mediastinum. Bones: Normal. XR/XR chest 2V* [id number] IMPRESSION: Subsegmental linear platelike areas of atelectasis in the mid RIGHT lung.
--- NOTE | 2019-09-04 15:00 | ECG_ITS ---
Measurements Intervals [place] Rate: 76 P: -57 TN: 159 QRS: -65 QRSD: 94 T: -48 QT: 384 QTc: 433 ECTOPIC ATRIAL RHYTHM LOW QRS VOLTAGE IN EXTREMITY LEADS [QRS DEFLECTION < 0.5 mV IN LIMB LEADS] INFERIOR MYOCARDIAL INFARCTION, OF INDETERMINATE AGE ANTEROLATERAL MYOCARDIAL INFARCTION [40+ ms Q WAVE IN I/aVL/V3-V6], OF IN INDETERMINATE AGE Compared to ECG 08/07/2019 17:51:31 No significant changes Electronically Signed On 09-04-2019 18:30:57 CDT by Soraya Ignacio M.D. [email or web address]
[2019-09-04 16:10] LABS: Alanine Aminotransferase 13 U/L (0-33); Albumin Level 3.5 g/dL (3.5-5.2); Alkaline Phosphatase 145 IU/L (35-105); Anion Gap 20.4 (5-19); Aspartate Amino Transferase 12 U/L (0-32); Blood Urea Nitrogen 23 mg/dL (6-20); C Reactive Protein 44.2 mg/L (0.0-4.9); Calcium 9.8 mg/dL (8.5-10.5); Carbon Dioxide 27 mmol/L (22-29); Chloride 87 mmol/L (98-107); Globulin 3.9 g/dL (1.3-4.6); Glomerular Filtration Rate 5.9 mL/min (90-130); Glucose 182 mg/dL (65-115); Osmolality Calculated 273 mOsm/kg (285-295); Potassium 3.4 mmol/L (3.5-5.1); Sodium 131 mmol/L (136-145); Total Bilirubin 0.5 mg/dL (0.15-1.2); Total Protein 7.4 g/dL (6.6-8.7)
[2019-09-04 16:21] LABS: Basophils # 0.1 10^3/uL (0.0-0.1); Basophils % 0.6 %; Eosinophils # 0.1 10^3/uL (0.0-0.8); Eosinophils % 1.7 %; Hematocrit 33.8 % (37.0-47.0); Hemoglobin 11.3 g/dL (11.5-15.3); Lymphocytes # 1.7 10^3/uL (0.8-4.8); Lymphocytes % 20.4 %; Mean Corpuscular HGB Conc 33.4 g/dL (30.0-36.0); Mean Corpuscular Hemoglobin 33.3 pg (28.0-34.0); Mean Corpuscular Volume 99.7 fL (81-99); Mean Platelet Volume 11.8 fL (7.4-10.4); Monocytes # 0.4 10^3/uL (0.2-0.9); Monocytes % 4.9 %; Neutrophils % 71.9 %; Nucleated Red Blood Cells % 0 %; Platelet Count 223 10^3/cmm (130-400); Red Blood Count 3.39 10^6/uL (4.1-5.3); Red Cell Distribution Width 13.2 % (12.1-15.1); White Blood Count 8.3 10^3/uL (4.0-10.0)
[2019-09-04 16:43] LABS: Prealbumin 23.8 mg/dL (20-40)
[2019-09-04 17:00] LABS: Erythrocyte Sedimentation Rate 104 mm/hr (0-15)
[2019-09-04 17:05] LABS: Estmated Average Glucose 209; Hemoglobin A1C 8.9 % (4.0-6.0)
== END 2019-09-05 23:59 | disposition home or self-care (01) ==
LOC: WOUND 14:27
PROVIDERS: Family Provider Internal Medicine; PCP Internal Medicine; Visit Provider Thoracic Surgery (Cardiothoracic Vascular Surgery)
DX: E11.621 Type 2 diabetes mellitus with foot ulcer (principal); L97.522 Non-pressure chronic ulcer of other part of left foot with fat layer exposed; Z89.422 Acquired absence of other left toe(s); M79.672 Pain in left foot; M86.9 Osteomyelitis, unspecified; M19.072 Primary osteoarthritis, left ankle and foot; J98.11 Atelectasis; I25.2 Old myocardial infarction; Z13.6 Encounter for screening for cardiovascular disorders; Z13.83 Encounter for screening for respiratory disorder NEC
CPT/HCPCS: 11042; 36415; 71046; 73630; 80053; 83036; 84134; 85025; 85651; 86140; 93005; 99203; 99212; L3260

== ENCOUNTER 2019-09-05 05:53 | Emergency (ER) | payer MEDICARE, MEDICAID, SELFPAY ==
[2019-09-05 06:00] VITALS: BP 89/58; PULSE 72; RESP 18; TEMP 37.1; O2SAT 94; BMI 34.6
[2019-09-05 06:15] VITALS: BP 100/66; PULSE 105; RESP 16; O2SAT 99
--- NOTE | 2019-09-05 06:16 | ECG_ITS ---
Measurements Intervals [place] Rate: 106 P: 261 NV: 171 QRS: -88 QRSD: 80 T: -85 QT: 416 QTc: 554 ECTOPIC ATRIAL TACHYCARDIA INDETERMINATE AXIS LOW QRS VOLTAGE IN EXTREMITY LEADS [QRS DEFLECTION < 0.5 mV IN LIMB LEADS] ANTERIOR MYOCARDIAL INFARCTION , OF INDETERMINATE AGE MODERATE T-WAVE ABNORMALITY, CONSIDER LATERAL ISCHEMIA MODERATE T-WAVE ABNORMALITY, CONSIDER INFERIOR ISCHEMIA Compared to ECG 09/04/2019 15:03:19 Indeterminate axis now present T-wave abnormality now present Possible ischemia now present Ectopic atrial rhythm no longer present Myocardial infarct finding still present Electronically Signed On 09-05-2019 19:23:58 CDT by Daksha Delcid M.D. [email or web address]
--- NOTE | 2019-09-05 06:16 | XR_ITS ---
WS: [id number] PORTABLE CHEST HISTORY: chest pain COMPARISON: 09/04/2019 Decreased lung volumes. Areas of linear atelectasis in the mid and lower RIGHT lung. No acute pneumon ia. New area of stranding in the mid LEFT lung posterior to the LEFT heart. No pleural effusion or pn eumothorax. Cardiac size: Normal. Mediastinum/Aorta: Normal mediastinum. No osseous abnormality seen. XR/XR chest 1V portable [id number] IMPRESSION: Bilateral areas of subsegmental atelectasis. No pneumonia.
--- NOTE | 2019-09-05 06:17 | ED_ITS ---
HPI - Chest Pain General: Chief Complaint: Chest Pain Stated Complaint: chest pressure Time Seen by Provider: 09/05/19 06:16 History of Present Illness: HPI narrative: Patient was awakened at approximately 4 AM this morning by a very sharp chest pain. Patient states that she had shortness of breath, nausea, and diaphoresis with the episode. 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 Follows with Dr Ann. Depression Diabetes Insulin-dependent ESRD (end stage renal disease) Gastroparesis GERD (gastroesophageal reflux disease) HTN (hypertension) Hyperlipidemia Hypothyroidism Partial nontraumatic amputation of left foot (~06/2019) Peripheral vascular disease TIA (transient ischemic attack) Vitamin D deficiency Surgical History History of appendectomy History of heart artery stent History of hysterectomy History of left heart catheterization History of right below knee amputation Peritoneal dialysis catheter in place Family History Denies family history of CAD (coronary artery disease) Clotting disorder Dementia Bleeding disorder Social History Smoking and tobacco status: never smoked Alcohol intake: never Household members: spouse and family History of recent travel: No Physical Exam Const: COMMON NORMALS: oriented x3, no limitations, alert and well nourished GENERAL APPEARANCE: cooperative and well developed Neck/C-Spine: COMMON NORMALS: full ROM, no meningeal signs and no JVD GENERAL: Yes normal visual inspection Resp: COMMON NORMALS: normal respiratory effort, no retractions, no use of accessory muscles and clear to auscultation bilaterally AUSCULTATION: clear to auscultation bilaterally Cardio: COMMON NORMALS: no JVD, regular rate and regular rhythm RATE: regular rate RHYTHM: regular rhythm GI: COMMON NORMALS: normal to inspection, nondistended, normoactive bowel sounds Extremity: COMMON NORMALS: normal to inspection, full ROM and no pedal edema Neuro: COMMON NORMALS: oriented x3 SENSORIUM/ORIENTATION: Yes alert MENINGEAL SIGNS: Yes no meningeal signs Skin: COMMON NORMALS: no rashes or lesions noted, no wounds, skin turgor normal, no jaundice, no petechiae and no mottling GENERAL SKIN EXAM: no rashes or lesions noted and turgor normal Course Vital Signs: Vital signs: Vital Signs Temperature 98.7 F 09/05/19 06:00 Pulse Rate 109 H 09/05/19 06:30 Respiratory Rate 15 09/05/19 07:48 Blood Pressure 100/66 09/05/19 06:30 Pulse Oximetry 99 09/05/19 06:15 MDM - Chest Pain Lab Data: Labs: Lab Results 09/05/19 09/05/19 09/05/19 Range/Units 07:15 07:15 07:15 WBC 9.3 (4.0-10.0) 10^3/ uL RBC 3.12 L (4.1-5.3) 10^6/u L Hgb 10.3 L (11.5-15.3) g/dL Hct 31.2 L (37.0-47.0) % MCV 100.0 H (81-99) fL MCH 33.0 (28.0-34.0) pg MCHC 33.0 (30.0-36.0) g/dL RDW 13.2 (12.1-15.1) % Plt Count 187 (130-400) 10^3/c mm MPV 11.8 H (7.4-10.4) fL Neut % (Auto) 78.5 % Lymph % (Auto) 14.7 % [place] % (Auto) 4.7 % Eos % (Auto) 1.3 % Baso % (Auto) 0.4 % Neut # (Auto) 7.3 (1.8-7.7) 10^3/u L Lymph # (Auto) 1.4 (0.8-4.8) 10^3/u L [place] # (Auto) 0.4 (0.2-0.9) 10^3/u L Eos # (Auto) 0.1 (0.0-0.8) 10^3/u L Baso # (Auto) 0.0 (0.0-0.1) 10^3/u L Nucleated RBC % (a uto) 0 % Nucleated RBCs # 0.0 /100WBC D-Dimer 1.17 H (0-0.59) ug/mIFE U Sodium 134 L (136-145) mmol/L Potassium 3.4 L (3.5-5.1) mmol/L Chloride 91 L (98-107) mmol/L Carbon Dioxide 25 (22-29) mmol/L Anion Gap 21.4 H (5-19) BUN 25 H (6-20) mg/dL Creatinine 7.1 H* (0.5-0.9) mg/dL GFR Calculation 6.0 L (90-130) mL/min Glucose 297 H (65-115) mg/dL Calculated Osmolal ity 286 (285-295) mOsm/k g Lactate (0.5-2.2) mmol/L Calcium 9.1 (8.5-10.5) mg/dL Total Bilirubin 0.5 (0.15-1.2) mg/dL AST 10 (0-32) U/L ALT 12 (0-33) U/L Alkaline Phosphata se 126 H (35-105) IU/L Troponin T Baselin e (0-10) ng/mL Troponin T 120 Min [place] (0-10) ng/mL Delta Troponin T (0-10) ABS# NT-Pro-B Natriuret Pep 3310 H (0-125) pg/mL Total Protein 6.7 (6.6-8.7) g/dL Albumin 3.3 L (3.5-5.2) g/dL Globulin 3.4 (1.3-4.6) g/dL Lipase 30 (13-60) U/L 09/05/19 09/05/19 09/05/19 Range/Units 07:15 07:15 09:10 WBC (4.0-10.0) 10^3/ uL RBC (4.1-5.3) 10^6/u L Hgb (11.5-15.3) g/dL Hct (37.0-47.0) % MCV (81-99) fL MCH (28.0-34.0) pg MCHC (30.0-36.0) g/dL RDW (12.1-15.1) % Plt Count (130-400) 10^3/c mm MPV (7.4-10.4) fL Neut % (Auto) % Lymph % (Auto) % [place] % (Auto) % Eos % (Auto) % Baso % (Auto) % Neut # (Auto) (1.8-7.7) 10^3/u L Lymph # (Auto) (0.8-4.8) 10^3/u L [place] # (Auto) (0.2-0.9) 10^3/u L Eos # (Auto) (0.0-0.8) 10^3/u L Baso # (Auto) (0.0-0.1) 10^3/u L Nucleated RBC % (a uto) % Nucleated RBCs # /100WBC D-Dimer (0-0.59) ug/mIFE U Sodium (136-145) mmol/L Potassium (3.5-5.1) mmol/L Chloride (98-107) mmol/L Carbon Dioxide (22-29) mmol/L Anion Gap (5-19) BUN (6-20) mg/dL Creatinine (0.5-0.9) mg/dL GFR Calculation (90-130) mL/min Glucose (65-115) mg/dL Calculated Osmolal ity (285-295) mOsm/k g Lactate 2.3 H (0.5-2.2) mmol/L Calcium (8.5-10.5) mg/dL Total Bilirubin (0.15-1.2) mg/dL AST (0-32) U/L ALT (0-33) U/L Alkaline Phosphata se (35-105) IU/L Troponin T Baselin e 158 H* (0-10) ng/mL Troponin T 120 Min [place] 149.1 H (0-10) ng/mL Delta Troponin T -8.9 L (0-10) ABS# NT-Pro-B Natriuret Pep (0-125) pg/mL Total Protein (6.6-8.7) g/dL Albumin (3.5-5.2) g/dL Globulin (1.3-4.6) g/dL Lipase (13-60) U/L Discharge Plan Discharge Patient Disposition: Home, Self-Care Clinical Impression: Acute hypotension, Chronic kidney disease, stage V, Stable angina Chest pain Qualifiers: Chest pain type: unspecified Qualified Code(s): R07.9 - Chest pain, unspecified Condition: Stable Prescriptions: No Action metoclopramide HCl [Reglan] 5 mg tablet 5 mg PO .qac Qty: 30 RF: 0 Lantus Solostar U-100 Insulin 100 unit/mL (3 mL) insulin pen 45 unit SUBCUT BID Qty: 15 RF: 0 metoprolol succinate 50 mg tablet extended release 24 hr 25 mg PO BID RF: 0 Hold Instructions: Resume on 09/04/19. Hold until you see outpatient nephrology, resume if deemed appropriate clopidogrel 75 mg tablet 75 mg PO DAILY RF: 0 pantoprazole 40 mg tablet,delayed release (DR/EC) 40 mg PO DAILY RF: 0 levothyroxine 112 mcg Tablet 224 mcg PO DAILY RF: 0 aspirin 81 mg Tablet,Chewable 81 mg PO DAILY RF: 0 Auryxia 210 mg iron tablet 210 mg PO TIDWM RF: 0 multivitamin [Multiple Vitamins] Tablet 1 tab PO DAILY RF: 0 paricalcitol [Zemplar] 1 mcg capsule See Rx Instructions .ROUTE .COMPLEX RF: 0 nitroglycerin 0.4 mg Tablet, Sublingual 0.4 mg SUBLINGUAL Q5M PRN (Reason: Chest Pain) RF: 0 Discharge Orders: Discharge Order (Routine); Ordered 09/05/19 Ordered By: Tino Greenfield Referrals: Yovany Leonardo MD [Primary Care Provider] - Coding Level of Care Code 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
[2019-09-05 06:22] VITALS: BP 100/66; PULSE 112; RESP 20
[2019-09-05 06:30] VITALS: BP 100/66; PULSE 109; RESP 18
--- NOTE | 2019-09-05 07:22 | PC.NURSE ---
2ND IV established for blood collection
[2019-09-05 07:24] LABS: Basophils % 0.4 %; Eosinophils # 0.1 10^3/uL (0.0-0.8); Eosinophils % 1.3 %; Hematocrit 31.2 % (37.0-47.0); Hemoglobin 10.3 g/dL (11.5-15.3); Lymphocytes # 1.4 10^3/uL (0.8-4.8); Lymphocytes % 14.7 %; Mean Platelet Volume 11.8 fL (7.4-10.4); Monocytes # 0.4 10^3/uL (0.2-0.9); Monocytes % 4.7 %; Neutrophils # 7.3 10^3/uL (1.8-7.7); Neutrophils % 78.5 %; Nucleated Red Blood Cells % 0 %; Platelet Count 187 10^3/cmm (130-400); Red Blood Count 3.12 10^6/uL (4.1-5.3); Red Cell Distribution Width 13.2 % (12.1-15.1); White Blood Count 9.3 10^3/uL (4.0-10.0)
[2019-09-05] MEDS: ondansetron 2 mg/ML SDV 2 mL 4 MG IVP (07:46)
[2019-09-05 07:48] VITALS: RESP 15
[2019-09-05] MEDS: morphine 4 mg/mL SDV 1 mL IVP (07:48)
[2019-09-05 07:57] LABS: Alanine Aminotransferase 12 U/L (0-33); Albumin Level 3.3 g/dL (3.5-5.2); Alkaline Phosphatase 126 IU/L (35-105); Anion Gap 21.4 (5-19); Aspartate Amino Transferase 10 U/L (0-32); Blood Urea Nitrogen 25 mg/dL (6-20); Calcium 9.1 mg/dL (8.5-10.5); Carbon Dioxide 25 mmol/L (22-29); Chloride 91 mmol/L (98-107); Globulin 3.4 g/dL (1.3-4.6); Glucose 297 mg/dL (65-115); Lipase 30 U/L (13-60); NT Pro B Type Natriuretic Pept 3310 pg/mL (0-125); Osmolality Calculated 286 mOsm/kg (285-295); Potassium 3.4 mmol/L (3.5-5.1); Sodium 134 mmol/L (136-145); Total Bilirubin 0.5 mg/dL (0.15-1.2); Total Protein 6.7 g/dL (6.6-8.7)
[2019-09-05 08:02] LABS: D Dimer 1.17 ug/mIFEU (0-0.59)
[2019-09-05 08:04] LABS: Troponin(5th) Baseline 158 ng/mL (0-10)
[2019-09-05 08:16] LABS: Lactate (Lactic Acid level) 2.3 mmol/L (0.5-2.2)
--- NOTE | 2019-09-05 08:16 | ECG_ITS ---
Measurements Intervals [place] Rate: 95 P: 257 TX: 162 QRS: -53 QRSD: 82 T: 265 QT: 422 QTc: 533 ECTOPIC ATRIAL RHYTHM WITH FREQUENT SUPRAVENTRICULAR PREMATURE COMPLEXES LEFT AXIS DEVIATION [QRS AXIS < -30] LOW QRS VOLTAGE IN EXTREMITY LEADS [QRS DEFLECTION < 0.5 mV IN LIMB LEADS] POSSIBLE ANTERIOR MYOCARDIAL INFARCTION , OF INDETERMINATE AGE INFERIOR MYOCARDIAL INFARCTION , OF INDETERMINATE AGE Compared to ECG 09/04/2019 15:03:19 Left-axis deviation now present Myocardial infarct finding still present Electronically Signed On 09-05-2019 19:24:35 CDT by Daksha Delcid M.D. [email or web address]
--- NOTE | 2019-09-05 08:25 | PC.NURSE ---
EKG performed and shown to ED physician.
--- NOTE | 2019-09-05 08:26 | CT_ITS ---
WS: [id number] CT CHEST ANGIOGRAPHY WITH REFORMATS HISTORY: chest pain TECHNIQUE: Contiguous axial images are obtained through the chest during arterial injection of intrav enous contrast. Images are reconstructed to evaluate the pulmonary arteries. MIP imaging also reviewe d. All CT scans at [facility] use at least one of these dose optimization techniques: aut omated exposure control; mA and/or kV adjustment per patient size (includes targeted exams where dose is matched to clinical indication); or iterative reconstruction. CONTRAST: Visipaque 320; 95 mL IV. DLP: 487.55 mGy.cm COMPARISON: 08/07/2019 Excellent opacification of the pulmonary arteries. No filling defects or pulmonary emboli. Mild ather osclerosis thoracic aorta with no aneurysm. Coronary artery calcifications. Patient has known coronar y artery stent also. Cardiac chambers are normal size. Abundant amount of epicardial fat surrounds the heart. No pericardi al or pleural effusions. Mild CHF. No pneumonia. Subsegmental areas of atelectasis in the RIGHT lower lobe. No mediastinal or hilar adenopathy. Small hiatal hernia. Fluid surrounding the superior portions of the liver and spleen as seen on the prior study. Prior cho lecystectomy. CT/CT angio chest PE protcl [id number] IMPRESSION: 1. No pulmonary embolism. 2. No pneumonia. 3. Mild CHF and bandlike areas of atelectasis RIGHT lower lobe. 4. Peritoneal fluid. May be due to patient's peritoneal dialysis. 5. Prior cholecystectomy. 6. Coronary artery calcifications with stents and epicardial fat.
[2019-09-05] MEDS: iodixanol 320 mg/mL 100mL Btl IV (08:52)
[2019-09-05 09:36] LABS: Troponin 5 2HR 149.1 ng/mL (0-10); Troponin 5 2HR Delta -8.9 ABS# (0-10)
[2019-09-05 09:59] VITALS: BP 96/46; PULSE 87; RESP 15; O2SAT 95
== END 2019-09-05 09:59 | disposition home or self-care (01) ==
PROVIDERS: Emergency Provider Family Medicine; Family Provider Internal Medicine; PCP Internal Medicine
DX: I95.9 Hypotension, unspecified (principal); I13.2 Hypertensive heart and chronic kidney disease with heart failure and with stage 5 chronic kidney disease, or end stage renal disease; E11.22 Type 2 diabetes mellitus with diabetic chronic kidney disease; I50.32 Chronic diastolic (congestive) heart failure; I20.8 Other forms of angina pectoris; E55.9 Vitamin D deficiency, unspecified; E03.9 Hypothyroidism, unspecified; Z99.2 Dependence on renal dialysis; E78.5 Hyperlipidemia, unspecified; I73.9 Peripheral vascular disease, unspecified; Z79.82 Long term (current) use of aspirin; Z79.4 Long term (current) use of insulin; Z89.432 Acquired absence of left foot; Z86.73 Personal history of transient ischemic attack (TIA), and cerebral infarction without residual deficits
CPT/HCPCS: 12345; 36415; 71045; 71275; 80053; 83605; 83690; 83880; 84484; 85025; 85378; 93005; 96374; 96375; 99283; 99284; J2270; J2405; Q9967

== ENCOUNTER 2019-09-06 08:00 | Day surgery (SDC) | payer MEDICARE, MEDICAID, SELFPAY ==
--- NOTE | 2019-09-06 11:31 | XR_ITS ---
WS: [id number] PORTABLE CHEST HISTORY: post picc placement COMPARISON: 09/05/2019 Interval placement of a right-sided PICC line with tip in the mid SVC. Platelike areas of atelectasis in the mid and lower RIGHT lung. No pleural effusion or pneumothorax. Cardiac size: Normal. Mediastinum/Aorta: Normal mediastinum. No osseous abnormality seen. XR/XR chest 1V portable [id number] IMPRESSION: Satisfactory placement right-sided PICC line.
== END 2019-09-06 09:00 | disposition home or self-care (01) ==
PROVIDERS: PCP Internal Medicine; Visit Provider Thoracic Surgery (Cardiothoracic Vascular Surgery)
DX: Z45.2 Encounter for adjustment and management of vascular access device (principal)
CPT/HCPCS: 36569; 71045

== ENCOUNTER 2019-09-08 11:40 | Emergency (ER) | payer MEDICARE, MEDICAID, SELFPAY ==
[2019-09-08 11:46] VITALS: BP 115/62; PULSE 68; RESP 19; O2SAT 98; BMI 32.9
--- NOTE | 2019-09-08 11:59 | ECG_ITS ---
Measurements Intervals [place] Rate: 65 P: -21 NE: 191 QRS: -40 QRSD: 93 T: -9 QT: 405 QTc: 423 SINUS RHYTHM LOW QRS VOLTAGE IN EXTREMITY LEADS INFERIOR MYOCARDIAL INFARCTION , OF INDETERMINATE AGE ANTEROLATERAL MYOCARDIAL INFARCTION , OF INDETERMINATE AGE Compared to ECG 09/05/2019 08:27:36 Ectopic atrial rhythm no longer present Left-axis deviation no longer present Myocardial infarct finding still present Electronically Signed On 09-08-2019 13:38:25 CDT by Soraya Ignacio M.D. [email or web address] f
--- NOTE | 2019-09-08 12:02 | ED_ITS ---
HPI - Allergic Reaction General: Chief complaint: Allergic Reaction Stated complaint: Chest pain/dizzy Time Seen by Provider: 09/08/19 11:46 History of Present Illness: HPI narrative: Patient comes in with complaints of chest tightness during her transfusion of vancomycin. Patient is feeling fine now denies any shortness of breath chest pain heaviness or other related problems. As you they stopped the vancomycin drip she said she started feeling better. Dr. George advised her she should still come on and get checked out. complaint: allergic reaction Onset (ago): minute(s) Exposure: medication (Vancomycin) Associated symptoms: Reports other (Chest tightness); Deny abdominal pain, nausea or vomiting Severity: mild Treatment prior to arrival: none Previous Allergic Reaction History: none Review of Systems Const: Denies: fever, chills or body aches Eyes: Denies: change in vision or blurry vision ENMT: Denies: throat pain or nasal congestion Card: Reports: other (Chest tightness resolved); Denies: chest pain or shortness of breath on exertion Resp: Denies: shortness of breath, productive cough or non-productive cough GI: Denies: abdominal pain, nausea or vomiting Musc: Denies: extremity pain Skin/Breast: Denies: rash Neuro: Denies: headache Psych: Denies: anxiety or depression Refugio/Lymph: Denies: easy bruising PFSH ED PFSH: Surgical History (Updated 09/07/19 @ 13:33 by Soraya Ignacio MD) History of appendectomy History of heart artery stent History of hysterectomy History of left heart catheterization History of right below knee amputation Peritoneal dialysis catheter in place S/P cholecystectomy S/P PICC central line placement Status post amputation of toe Social History Smoking and tobacco status: never smoked Alcohol intake: never Household members: spouse and family History of recent travel: No Physical Exam Const: COMMON NORMALS: no apparent distress, average body habitus and oriented x3 HENMT: COMMON NORMALS: normocephalic HEAD & SCALP: normal to inspection and normocephalic FACE & SINUS: normal facial exam Eye: COMMON NORMALS: conjunctivae normal GENERAL EYE: normal appearance of both eyes CONJUNCTIVA: Yes conjunctivae normal Neck/C-Spine: COMMON NORMALS: no JVD Chest: COMMONS NORMALS: inspection of chest normal Resp: COMMON NORMALS: normal respiratory effort and clear to auscultation bilaterally AUSCULTATION: clear to auscultation bilaterally Cardio: COMMON NORMALS: no JVD, regular rate and regular rhythm RATE: regular rate RHYTHM: regular rhythm GI: COMMON NORMALS: normal to inspection, nondistended, normoactive bowel sounds Neuro: COMMON NORMALS: oriented x3 Course Vital Signs: Vital signs: Vital Signs Pulse Rate 68 09/08/19 15:18 Respiratory Rate 17 09/08/19 15:18 Blood Pressure 112/61 09/08/19 15:18 Pulse Oximetry 96 09/08/19 15:18 MDM - Allergic Reaction MDM Narrative: Medical decision making narrative: discussed case with Dr. Daniels, pt has been pain free and no chest tightness or sob since here Lab Data: Labs: Lab Results 09/08/19 09/08/19 09/08/19 Range/Units 12:15 12:15 12:15 WBC 8.2 (4.0-10.0) 10^3/ uL RBC 2.82 L (4.1-5.3) 10^6/u L Hgb 9.4 L (11.5-15.3) g/dL Hct 28.5 L (37.0-47.0) % MCV 101.1 H (81-99) fL MCH 33.3 (28.0-34.0) pg MCHC 33.0 (30.0-36.0) g/dL RDW 13.0 (12.1-15.1) % Plt Count 189 (130-400) 10^3/c mm MPV 11.5 H (7.4-10.4) fL Neut % (Auto) 75.5 % Lymph % (Auto) 14.3 % [place] % (Auto) 6.0 % Eos % (Auto) 3.4 % Baso % (Auto) 0.4 % Neut # (Auto) 6.2 (1.8-7.7) 10^3/u L Lymph # (Auto) 1.2 (0.8-4.8) 10^3/u L [place] # (Auto) 0.5 (0.2-0.9) 10^3/u L Eos # (Auto) 0.3 (0.0-0.8) 10^3/u L Baso # (Auto) 0.0 (0.0-0.1) 10^3/u L Nucleated RBC % (a uto) 0 % Nucleated RBCs # 0.0 /100WBC Sodium 134 L (136-145) mmol/L Potassium 3.8 (3.5-5.1) mmol/L Chloride 91 L (98-107) mmol/L Carbon Dioxide 26 (22-29) mmol/L Anion Gap 20.8 H (5-19) BUN 24 H (6-20) mg/dL Creatinine 7.3 H* (0.5-0.9) mg/dL GFR Calculation 5.8 L (90-130) mL/min Glucose 211 H (65-115) mg/dL Calculated Osmolal ity 281 L (285-295) mOsm/k g Calcium 9.1 (8.5-10.5) mg/dL Total Bilirubin 0.5 (0.15-1.2) mg/dL AST 9 (0-32) U/L ALT 9 (0-33) U/L Alkaline Phosphata se 126 H (35-105) IU/L Troponin T Gen 5 n g/L 147 H* (0-10) ng/mL Troponin T 120 Min [place] (0-10) ng/mL Delta Troponin T (0-10) ABS# Total Protein 6.4 L (6.6-8.7) g/dL Albumin 3.0 L (3.5-5.2) g/dL Globulin 3.4 (1.3-4.6) g/dL 09/08/19 Range/Units 14:06 WBC (4.0-10.0) 10^3/ uL RBC (4.1-5.3) 10^6/u L Hgb (11.5-15.3) g/dL Hct (37.0-47.0) % MCV (81-99) fL MCH (28.0-34.0) pg MCHC (30.0-36.0) g/dL RDW (12.1-15.1) % Plt Count (130-400) 10^3/c mm MPV (7.4-10.4) fL Neut % (Auto) % Lymph % (Auto) % [place] % (Auto) % Eos % (Auto) % Baso % (Auto) % Neut # (Auto) (1.8-7.7) 10^3/u L Lymph # (Auto) (0.8-4.8) 10^3/u L [place] # (Auto) (0.2-0.9) 10^3/u L Eos # (Auto) (0.0-0.8) 10^3/u L Baso # (Auto) (0.0-0.1) 10^3/u L Nucleated RBC % (a uto) % Nucleated RBCs # /100WBC Sodium (136-145) mmol/L Potassium (3.5-5.1) mmol/L Chloride (98-107) mmol/L Carbon Dioxide (22-29) mmol/L Anion Gap (5-19) BUN (6-20) mg/dL Creatinine (0.5-0.9) mg/dL GFR Calculation (90-130) mL/min Glucose (65-115) mg/dL Calculated Osmolal ity (285-295) mOsm/k g Calcium (8.5-10.5) mg/dL Total Bilirubin (0.15-1.2) mg/dL AST (0-32) U/L ALT (0-33) U/L Alkaline Phosphata se (35-105) IU/L Troponin T Gen 5 n g/L (0-10) ng/mL Troponin T 120 Min [place] 151.8 H (0-10) ng/mL Delta Troponin T 4.8 (0-10) ABS# Total Protein (6.6-8.7) g/dL Albumin (3.5-5.2) g/dL Globulin (1.3-4.6) g/dL EKG Data^: EKG 1: EKG interpretation date: 09/08/19 EKG interpretation time: 11:55 Interpretation: SR, tracheal rate 65 bpm UT interval 191 ms QRS durations 93 ms old anterior inferior PR EKG appears to be same as previous Discharge Plan Discharge Patient Disposition: Home, Self-Care Clinical Impression: Adverse effect of drug/medicinal Qualifiers: Encounter type: initial encounter Qualified Code(s): T50.905A - Adverse effect of unspecified drugs, medicaments and biological substances, initial encounter Condition: Stable Prescriptions: No Action metoclopramide HCl [Reglan] 5 mg tablet 5 mg PO .qac Qty: 30 RF: 0 Lantus Solostar U-100 Insulin 100 unit/mL (3 mL) insulin pen 45 unit SUBCUT BID Qty: 15 RF: 0 metoprolol succinate 50 mg tablet extended release 24 hr 25 mg PO BID RF: 0 Hold Instructions: Resume on 09/04/19. Hold until you see outpatient nephrology, resume if deemed appropriate clopidogrel 75 mg tablet 75 mg PO DAILY RF: 0 pantoprazole 40 mg tablet,delayed release (DR/EC) 40 mg PO DAILY RF: 0 levothyroxine 112 mcg Tablet 224 mcg PO DAILY RF: 0 aspirin 81 mg Tablet,Chewable 81 mg PO DAILY RF: 0 Auryxia 210 mg iron tablet 210 mg PO TID RF: 0 multivitamin [Multiple Vitamins] Tablet 1 tab PO DAILY RF: 0 paricalcitol [Zemplar] 1 mcg capsule See Rx Instructions .ROUTE .COMPLEX RF: 0 nitroglycerin 0.4 mg Tablet, Sublingual 0.4 mg SUBLINGUAL Q5M PRN (Reason: Chest Pain) RF: 0 Discharge Orders: Discharge Order (Routine); Ordered 09/08/19 Ordered By: Jonah Man Referrals: Yovany Leonardo MD [Primary Care Provider] - Discharge Diet: Advance as tolerated Discharge Activity: Resume usual activity Activity Restrictions/Additional Instructions: Follow-up wound care about rate of flow of vancomycin drip. Follow-up primary care provider as needed. Discharge Date/Time: 09/08/19 15:20 Coding Level of Care Code ED Front End Developer Designer for Maris Fwd Exam Comprehensive
[2019-09-08 12:05] VITALS: BP 102/61; PULSE 65; RESP 14; O2SAT 95
[2019-09-08 12:26] LABS: Basophils % 0.4 %; Eosinophils # 0.3 10^3/uL (0.0-0.8); Eosinophils % 3.4 %; Hematocrit 28.5 % (37.0-47.0); Hemoglobin 9.4 g/dL (11.5-15.3); Lymphocytes # 1.2 10^3/uL (0.8-4.8); Lymphocytes % 14.3 %; Mean Corpuscular Hemoglobin 33.3 pg (28.0-34.0); Mean Corpuscular Volume 101.1 fL (81-99); Mean Platelet Volume 11.5 fL (7.4-10.4); Monocytes # 0.5 10^3/uL (0.2-0.9); Neutrophils # 6.2 10^3/uL (1.8-7.7); Neutrophils % 75.5 %; Nucleated Red Blood Cells % 0 %; Platelet Count 189 10^3/cmm (130-400); Red Blood Count 2.82 10^6/uL (4.1-5.3); White Blood Count 8.2 10^3/uL (4.0-10.0)
[2019-09-08 12:44] LABS: Alanine Aminotransferase 9 U/L (0-33); Alkaline Phosphatase 126 IU/L (35-105); Anion Gap 20.8 (5-19); Aspartate Amino Transferase 9 U/L (0-32); Blood Urea Nitrogen 24 mg/dL (6-20); Calcium 9.1 mg/dL (8.5-10.5); Carbon Dioxide 26 mmol/L (22-29); Chloride 91 mmol/L (98-107); Globulin 3.4 g/dL (1.3-4.6); Glomerular Filtration Rate 5.8 mL/min (90-130); Glucose 211 mg/dL (65-115); Osmolality Calculated 281 mOsm/kg (285-295); Potassium 3.8 mmol/L (3.5-5.1); Sodium 134 mmol/L (136-145); Total Bilirubin 0.5 mg/dL (0.15-1.2); Total Protein 6.4 g/dL (6.6-8.7)
[2019-09-08 12:48] LABS: Troponin T (5th) Once 147 ng/mL (0-10)
[2019-09-08 13:30] VITALS: BP 98/73; PULSE 67; RESP 14; O2SAT 97
[2019-09-08 14:00] VITALS: BP 98/73; PULSE 68; RESP 16; O2SAT 94
[2019-09-08 14:41] VITALS: BP 94/59; PULSE 68; RESP 15
[2019-09-08 14:56] LABS: Troponin 5 2HR 151.8 ng/mL (0-10)
[2019-09-08 14:57] LABS: Troponin 5 2HR Delta 4.8 ABS# (0-10)
[2019-09-08 15:18] VITALS: BP 112/61; PULSE 68; RESP 17; O2SAT 96
== END 2019-09-08 15:20 | disposition home or self-care (01) ==
PROVIDERS: Emergency Provider Nurse Practitioner Family; Family Provider Internal Medicine; PCP Internal Medicine
DX: T50.905A Adverse effect of unspecified drugs, medicaments and biological substances, initial encounter (principal); X58.XXXA Exposure to other specified factors, initial encounter; I12.0 Hypertensive chronic kidney disease with stage 5 chronic kidney disease or end stage renal disease; E11.22 Type 2 diabetes mellitus with diabetic chronic kidney disease; N18.6 End stage renal disease; Z79.4 Long term (current) use of insulin; K21.9 Gastro-esophageal reflux disease without esophagitis; E78.5 Hyperlipidemia, unspecified; E03.9 Hypothyroidism, unspecified; I50.32 Chronic diastolic (congestive) heart failure; I73.9 Peripheral vascular disease, unspecified; Z89.432 Acquired absence of left foot
CPT/HCPCS: 12345; 36415; 80053; 84484; 85025; 93005; 99283

== ENCOUNTER 2019-09-08 15:36 | Outpatient (CLI) | payer MEDICARE, MEDICAID, SELFPAY ==
[2019-09-08 17:48] LABS: Vancomycin Trough 14.6 ug/mL (10-15)
== END 2019-09-08 15:37 | disposition home or self-care (01) ==
LOC: LAB 15:38
PROVIDERS: Family Provider Internal Medicine; PCP Internal Medicine; Visit Provider Thoracic Surgery (Cardiothoracic Vascular Surgery)
DX: M86.9 Osteomyelitis, unspecified (principal)
CPT/HCPCS: 80202

== ENCOUNTER 2019-09-20 11:15 | Outpatient (CLI) | payer MEDICARE, MEDICAID, SELFPAY ==
[2019-09-20 11:02] LABS: Anion Gap 21.7 (5-19); Blood Urea Nitrogen 36 mg/dL (6-20); Calcium 9.2 mg/dL (8.5-10.5); Carbon Dioxide 22 mmol/L (22-29); Chloride 93 mmol/L (98-107); Glomerular Filtration Rate 7.7 mL/min (90-130); Glucose 288 mg/dL (65-115); Osmolality Calculated 284 mOsm/kg (285-295); Potassium 3.7 mmol/L (3.5-5.1); Sodium 133 mmol/L (136-145)
[2019-09-20 11:07] LABS: Vancomycin Trough 25.6 ug/mL (10-15)
== END 2019-09-20 11:16 | disposition home or self-care (01) ==
LOC: LAB 11:18
PROVIDERS: Family Provider Internal Medicine; PCP Internal Medicine; Visit Provider Thoracic Surgery (Cardiothoracic Vascular Surgery)
DX: M86.9 Osteomyelitis, unspecified (principal)
CPT/HCPCS: 80048; 80202

== ENCOUNTER 2019-09-21 13:03 | Outpatient (RCR) | payer MEDICARE, MEDICAID, SELFPAY ==
[2019-09-12 13:29] LABS: Basophils % 0.5 %; Eosinophils # 0.4 10^3/uL (0.0-0.8); Eosinophils % 4.6 %; Hematocrit 27.9 % (37.0-47.0); Hemoglobin 9.1 g/dL (11.5-15.3); Lymphocytes # 1.6 10^3/uL (0.8-4.8); Lymphocytes % 19.7 %; Mean Corpuscular HGB Conc 32.6 g/dL (30.0-36.0); Mean Corpuscular Hemoglobin 33.1 pg (28.0-34.0); Mean Corpuscular Volume 101.5 fL (81-99); Mean Platelet Volume 11.8 fL (7.4-10.4); Monocytes # 0.6 10^3/uL (0.2-0.9); Monocytes % 7.3 %; Neutrophils # 5.4 10^3/uL (1.8-7.7); Neutrophils % 67.4 %; Nucleated Red Blood Cells % 0 %; Platelet Count 255 10^3/cmm (130-400); Red Blood Count 2.75 10^6/uL (4.1-5.3); Red Cell Distribution Width 13.2 % (12.1-15.1)
[2019-09-12 13:57] LABS: Anion Gap 20.5 (5-19); Blood Urea Nitrogen 30 mg/dL (6-20); Calcium 9.4 mg/dL (8.5-10.5); Carbon Dioxide 25 mmol/L (22-29); Chloride 92 mmol/L (98-107); Glomerular Filtration Rate 7.3 mL/min (90-130); Glucose 149 mg/dL (65-115); Osmolality Calculated 278 mOsm/kg (285-295); Potassium 3.5 mmol/L (3.5-5.1); Sodium 134 mmol/L (136-145); Vancomycin Trough 18.6 ug/mL (10-15)
== END 2019-10-05 23:59 | disposition home or self-care (01) ==
LOC: WOUND 13:03
PROVIDERS: Thoracic Surgery (Cardiothoracic Vascular Surgery); Family Provider Internal Medicine; PCP Internal Medicine; Visit Provider Nurse Practitioner Family
DX: E11.621 Type 2 diabetes mellitus with foot ulcer (principal); L97.522 Non-pressure chronic ulcer of other part of left foot with fat layer exposed; Z89.422 Acquired absence of other left toe(s)
CPT/HCPCS: 11042; 11044; 80048; 80202; 85025; 99183; G0277; L4397

== ENCOUNTER 2019-09-26 14:19 | Outpatient (CLI) | payer MEDICARE, MEDICAID, SELFPAY ==
[2019-09-26 15:19] LABS: Blood Urea Nitrogen 32 mg/dL (6-20); Calcium 9.6 mg/dL (8.5-10.5); Carbon Dioxide 25 mmol/L (22-29); Chloride 88 mmol/L (98-107); Glomerular Filtration Rate 6.2 mL/min (90-130); Glucose 245 mg/dL (65-115); Osmolality Calculated 281 mOsm/kg (285-295); Sodium 133 mmol/L (136-145); Vancomycin Trough 22.6 ug/mL (10-15)
== END 2019-09-26 14:20 | disposition home or self-care (01) ==
LOC: LAB 14:23
PROVIDERS: Family Provider Internal Medicine; PCP Internal Medicine; Visit Provider Thoracic Surgery (Cardiothoracic Vascular Surgery)
DX: M86.9 Osteomyelitis, unspecified (principal)
CPT/HCPCS: 80048; 80202

== ENCOUNTER 2019-09-26 17:42 | Emergency (ER) | payer MEDICARE, MEDICAID, SELFPAY ==
[2019-09-26 17:47] VITALS: BMI 35.1
[2019-09-26 17:53] VITALS: BP 141/83; PULSE 74; RESP 16; TEMP 36.7; O2SAT 97
--- NOTE | 2019-09-26 17:58 | XR_ITS ---
WS: [id number] CHEST XRAY TECHNIQUE: Portable chest. CLINICAL INFORMATION: cough/congestion COMPARISON: September 06, 2019 FINDINGS: Heart: Cardiomegaly. Prominent left ventricle. Right PICC line with tip in SVC. Lungs: Subsegmental atelectasis right hilum. Mild chronic emphysematous changes. Bones: Normal visualized bony structures. XR/XR chest 1V portable [id number] IMPRESSION: No acute chest findings
--- NOTE | 2019-09-26 17:58 | CTR_ITS ---
PROCEDURE INFORMATION: Exam: CT Head Without Contrast Exam date and time: 09/26/2019 5:59 PM Age: 54 years old Clinical indication: Pain; Dizziness; Headache; Patient HX: High BP; Additional info: [place]/dizziness TECHNIQUE: Imaging protocol: Computed tomography of the head without contrast. Total DLP: 732.49 mGy-cm Radiation optimization: All CT scans at this facility use at least one of these dose optimization techniques: automated exposure control; mA and/or kV adjustment per patient size (includes targeted exams where dose is matched to clinical indication); or iterative reconstruction. COMPARISON: CT head wo con* [id number] 08/11/2017 12:05 PM FINDINGS: Brain: There is unchanged mild periventricular low density compatible with unchanged mild small vessel disease changes. There is no acute hemorrhage, edema or mass effect. Ventricles: Normal. No ventriculomegaly. Bones/joints: Unremarkable. No acute fracture. Sinuses: Visualized sinuses are unremarkable. No fluid levels. Mastoid air cells: There is patchy opacity and trace air-fluid levels in the left mastoid air cells new since the prior exam. The right mastoid air cells are clear. Soft tissues: Unremarkable. Vasculature: Unchanged mild vascular calcifications are noted at the skull base. CT/CT head wo con* [id number] IMPRESSION: 1. New patchy left mastoiditis. 2. No acute intracranial abnormality. Radiation Dose CTDIVOL = (mGy): DLP = 732.49 (mGy-cm)
--- NOTE | 2019-09-26 18:09 | ED_ITS ---
HPI - General Adult General: Chief complaint: General Medical Stated complaint: high bp Time Seen by Provider: 09/26/19 17:47 Source: patient Mode of arrival: ambulatory Limitations: no limitations History of Present Illness: HPI narrative: Patient is a 54-year-old female who presents to ED today with complaints of varied blood pressures throughout the day. Patient states she has had readings of hypotension (90s/70s) as well as hypertension (170s/100s). She states she has had issues with her blood pressure previously. She reports chest pains beginning earlier today as well. Pain is located substernal with no radiation. She also complains of a headache, nausea (no vomiting), dizziness. She has no previous history of migraine headaches. She was recently placed on a new medication, duloxetine, by Dr. Leonardo for anxiety. Patient tells me she has a history of thyroid disease, end-stage renal disease currently doing peritoneal dialysis daily, and diabetes. She tells me her sugars normally run in the 200s and have been stable. She is not having any numbness, tingling, loss of sensation to her extremities, facial droop, slurred speech, weakness. She does not complain of being short of breath, cough, difficulty breathing. No fevers. Onset (ago): hour(s) Relieving factors: none Exacerbating factors: none Associated symptoms: Reports chest pain, headache(s) and nausea; Deny dyspnea, malaise, rash, palpitations, syncope or vomiting Treatments prior to arrival: none Review of Systems Const: Denies: fever, chills, body aches, fatigue or malaise Eyes: Reports: blurry vision; Denies: change in vision, blind spots, photophobia, floaters or seeing flashes ENMT: Denies: throat pain, enlarged tonsils or painful swallowing Card: Reports: chest pain; Denies: palpitations, irregular heart rhythm, edema, swelling of feet/ankles, lightheadedness, syncope, pre-syncope, shortness of breath on exertion, shortness of breath when lying down, leg pain with exertion or bluish discoloration of hands/feet Resp: Denies: shortness of breath, productive cough, non-productive cough, coughing up blood or chest congestion GI: Reports: nausea; Denies: abdominal pain, vomiting, vomiting blood, heartburn/indigestion, diarrhea, change in bowel habits, painful bowel movements, change in stool character, blood in stool, black tarry stool, white/light colored stool or fatty stool : Denies: flank pain, difficulty urinating, painful urination, urinary frequency, urinary urgency or urinary hesitancy Musc: Denies: neck pain, back pain, extremity pain, extremity swelling, joint pain or joint swelling Skin/Breast: Denies: rash Neuro: Reports: headache; Denies: numbness in extremities, weakness in extremities, changes in sensation or lack of coordination PFSH ED PFSH: Medical History (Updated 09/26/19 @ 21:41 by [facility]) Anxiety CAD (coronary artery disease) Chronic diastolic CHF (congestive heart failure) Chronic kidney disease, stage V On peritoneal dialysis. Follows with Dr Ann. Claustrophobia Depression Diabetes Insulin-dependent ESRD (end stage renal disease) Gastroparesis GERD (gastroesophageal reflux disease) HTN (hypertension) Hyperlipidemia Hypothyroidism Partial nontraumatic amputation of left foot (~06/2019) Peripheral vascular disease TIA (transient ischemic attack) Vitamin D deficiency Surgical History History of appendectomy History of heart artery stent History of hysterectomy History of left heart catheterization History of right below knee amputation Peritoneal dialysis catheter in place S/P cholecystectomy S/P PICC central line placement Status post amputation of toe Social History Smoking and tobacco status: never smoked Alcohol intake: never Household members: spouse and family History of recent travel: No Physical Exam Const: COMMON NORMALS: no apparent distress, oriented x3, no limitations and alert NUTRITIONAL APPEARANCE: obese ORIENTATION/CONSCIOUSNESS: Yes oriented to person, Yes oriented to place and Yes oriented to time HENMT: COMMON NORMALS: normocephalic, head/scalp atraumatic, external ears normal, EAC's normal, TM's normal bilaterally (PE tubs present) and external nose normal HEAD & SCALP: normal to inspection, normocephalic and atraumatic FACE & SINUS: normal facial exam NOSE: external nose normal EXTERNAL EAR: Yes external ears normal and Yes mastoids normal EXTERNAL AUDITORY CANAL: EAC's normal TYMPANIC MEMBRANE: TM's normal bilaterally (PE tubs present) Eye: COMMON NORMALS: PERRL and EOMs intact bilaterally GENERAL EYE: normal appearance of both eyes PUPIL: Yes PERRL Neck/C-Spine: COMMON NORMALS: full ROM, no lymphadenopathy and no meningeal signs Resp: COMMON NORMALS: normal respiratory effort and clear to auscultation bi laterally AUSCULTATION: clear to auscultation bilaterally Cardio: COMMON NORMALS: regular rate and regular rhythm RATE: regular rate RHYTHM: regular rhythm GI: COMMON NORMALS: normal to inspection, nondistended, normoactive bowel sounds, soft to palpation, non-tender, no hepatosplenomegaly and no masses PALPATION: Yes soft and Yes no hepatosplenomegaly : COMMON NORMALS: Yes no CVA tenderness BLADDER/KIDNEY EXAM: Yes no CVA tenderness Back/Pelvis: COMMON NORMALS: no CVA tenderness Extremity: OTHER: R BKA; L 5th toe amputation-site looks clean and infection free Neuro: REBECCA COMA SCALE: document GCS findings [place] coma scale eye opening: Spontaneous [place] coma scale verbal response: Orientated Rebecca coma scale motor response: Obey commands [place] coma scale total score: 15 COMMON NORMALS: oriented x3, CN's II-XII intact bilaterally, moves all extremities, no focal motor deficits and no sensory deficits noted SENSORIUM/ORIENTATION: Yes alert, Yes oriented to person, Yes oriented to place and Yes oriented to time MENINGEAL SIGNS: Yes no meningeal signs Course Reevaluation(s): Reevaluation #1: patient states chest pain has completely subsided as well as her nausea and dizziness; she still complains of a LAWSON-will order her some medications for this Reevaluation #2: pt states her LAWSON has improved a lot; she is complaining of severe anxiety/restless legs and asking for something for this Vital Signs: Vital signs: Vital Signs Temperature 98.0 F 09/26/19 17:53 Pulse Rate 76 09/26/19 22:03 Respiratory Rate 18 09/26/19 22:03 Blood Pressure 105/63 09/26/19 22:03 Pulse Oximetry 97 09/26/19 22:03 MDM - General Adult MDM Narrative: Medical decision making narrative: Patient tells me all of her symptoms have alleviated except for the anxiety. She is describing symptoms of restless legs at this time. She did see Dr. Leonardo recently for this. On patient's labs she has findings consistent with her end-stage renal disease. She states she normally does peritoneal dialysis at home around 9 PM every evening. Patient's initial troponin was 166 with a delta of 4.8. She has chronically high troponins most likely due to her kidney disease. Again she has no chest pain currently and I do not clinically suspect cardiac etiology however based on the increasing troponin and heart score I did recommend or at least offer admission to the hospital however patient would like to go home. She has no ischemic changes on her initial and repeat EKGs. Patient had a stress test just last month showing a EF of 60% with normal right ventricular function. Strict return to ED precautions given. Patient needs to perform her dialysis as soon as she gets home. Lab Data: Labs: Lab Results 09/26/19 09/26/19 09/26/19 Range/Units 18:11 18:11 18:11 WBC 6.1 (4.0-10.0) 10^3/ uL RBC 3.01 L (4.1-5.3) 10^6/u L Hgb 10.0 L (11.5-15.3) g/dL Hct 28.5 L (37.0-47.0) % MCV 94.7 (81-99) fL MCH 33.2 (28.0-34.0) pg MCHC 35.1 (30.0-36.0) g/dL RDW 12.8 (12.1-15.1) % Plt Count 215 (130-400) 10^3/c mm MPV 11.5 H (7.4-10.4) fL Neut % (Auto) 65.1 % Lymph % (Auto) 24.7 % Fallon % (Auto) 7.7 % Eos % (Auto) 1.6 % Baso % (Auto) 0.7 % Neut # (Auto) 4.0 (1.8-7.7) 10^3/u L Lymph # (Auto) 1.5 (0.8-4.8) 10^3/u L Fallon # (Auto) 0.5 (0.2-0.9) 10^3/u L Eos # (Auto) 0.1 (0.0-0.8) 10^3/u L Baso # (Auto) 0.0 (0.0-0.1) 10^3/u L Nucleated RBC % (a uto) 0 % Nucleated RBCs # 0.0 /100WBC Sodium 130 L (136-145) mmol/L Potassium 3.4 L (3.5-5.1) mmol/L Chloride 88 L (98-107) mmol/L Carbon Dioxide 25 (22-29) mmol/L Anion Gap 20.4 H (5-19) BUN 39 H (6-20) mg/dL Creatinine 7.5 H* (0.5-0.9) mg/dL GFR Calculation 5.6 L (90-130) mL/min Glucose 210 H (65-115) mg/dL Calculated Osmolal ity 274 L (285-295) mOsm/k g Calcium 9.7 (8.5-10.5) mg/dL Total Bilirubin 0.7 (0.15-1.2) mg/dL AST 13 (0-32) U/L ALT 16 (0-33) U/L Alkaline Phosphata se 108 H (35-105) IU/L Troponin T Baselin e 166 H* (0-10) ng/mL Troponin T 120 Min absentee-shawnee (0-10) ng/mL Delta Troponin T (0-10) ABS# Total Protein 6.6 (6.6-8.7) g/dL Albumin 3.6 (3.5-5.2) g/dL Globulin 3.0 (1.3-4.6) g/dL TSH 0.69 (0.27-4.20) uIU/ mL 09/26/19 Range/Units 20:23 WBC (4.0-10.0) 10^3/ uL RBC (4.1-5.3) 10^6/u L Hgb (11.5-15.3) g/dL Hct (37.0-47.0) % MCV (81-99) fL MCH (28.0-34.0) pg MCHC (30.0-36.0) g/dL RDW (12.1-15.1) % Plt Count (130-400) 10^3/c mm MPV (7.4-10.4) fL Neut % (Auto) % Lymph % (Auto) % Fallon % (Auto) % Eos % (Auto) % Baso % (Auto) % Neut # (Auto) (1.8-7.7) 10^3/u L Lymph # (Auto) (0.8-4.8) 10^3/u L Fallon # (Auto) (0.2-0.9) 10^3/u L Eos # (Auto) (0.0-0.8) 10^3/u L Baso # (Auto) (0.0-0.1) 10^3/u L Nucleated RBC % (a uto) % Nucleated RBCs # /100WBC Sodium (136-145) mmol/L Potassium (3.5-5.1) mmol/L Chloride (98-107) mmol/L Carbon Dioxide (22-29) mmol/L Anion Gap (5-19) BUN (6-20) mg/dL Creatinine (0.5-0.9) mg/dL GFR Calculation (90-130) mL/min Glucose (65-115) mg/dL Calculated Osmolal ity (285-295) mOsm/k g Calcium (8.5-10.5) mg/dL Total Bilirubin (0.15-1.2) mg/dL AST (0-32) U/L ALT (0-33) U/L Alkaline Phosphata se (35-105) IU/L Troponin T Baselin e (0-10) ng/mL Troponin T 120 Min absentee-shawnee 170.8 H (0-10) ng/mL Delta Troponin T 4.8 (0-10) ABS# Total Protein (6.6-8.7) g/dL Albumin (3.5-5.2) g/dL Globulin (1.3-4.6) g/dL TSH (0.27-4.20) uIU/ mL Imaging Data^: CT Head: Radiologist's impression: [address] [address] [address] Scan Report Signed Patient: Rizwana Herzog Unit #: [id number] : 1965 Age/Sex: 54 / F ADM Date: 09/26/19 Loc: ER Room/Bed: Attending Dr: Ordering Provider/Ordering MD: Kacie Goodrich Date of Service: 09/26/19 Procedure(s): CT head wo con* [id number] Accession Number(s): [id number] Report Number: [id number] PROCEDURE INFORMATION: Exam: CT Head Without Contrast Exam date and time: 09/26/2019 5:59 PM Age: 54 years old Clinical indication: Pain; Dizziness; Headache; Patient HX: High BP; Additional info: Lawson/dizziness TECHNIQUE: Imaging protocol: Computed tomography of the head without contrast. Total DLP: 732.49 mGy-cm Radiation optimization: All CT scans at this facility use at least one of these dose optimization techniques: automated exposure control; mA and/or kV adjustment per patient size (includes targeted exams where dose is matched to clinical indication); or iterative reconstruction. COMPARISON: CT head wo con* [id number] 08/11/2017 12:05 PM FINDINGS: Brain: There is unchanged mild periventricular low density compatible with unchanged mild small vessel disease changes. There is no acute hemorrhage, edema or mass effect. Ventricles: Normal. No ventriculomegaly. Bones/joints: Unremarkable. No acute fracture. Sinuses: Visualized sinuses are unremarkable. No fluid levels. Mastoid air cells: There is patchy opacity and trace air-fluid levels in the left mastoid air cells new since the prior exam. The right mastoid air cells are clear. Soft tissues: Unremarkable. Vasculature: Unchanged mild vascular calcifications are noted at the skull base. CT/CT head wo con* [id number] IMPRESSION: 1. New patchy left mastoiditis. 2. No acute intracranial abnormality. Radiation Dose CTDIVOL = (mGy): DLP = 732.49 (mGy-cm) Dictated By: Micaela Lake Signed By: Micaela Lake Signed Date/Time: 09/26/191853 DD/ 52 Discharge Plan Discharge Patient Disposition: Home, Self-Care Clinical Impression: ESRD (end stage renal disease), Anxiety Condition: Stable Prescriptions: No Action duloxetine 30 mg capsule,delayed release(DR/EC) 30 mg PO DAILY Qty: 90 RF: 3 Lantus Solostar U-100 Insulin 100 unit/mL (3 mL) insulin pen 45 unit SUBCUT BID Qty: 15 RF: 0 metoprolol succinate 50 mg tablet extended release 24 hr 25 mg PO BID RF: 0 Hold Instructions: Resume on 09/04/19. Hold until you see outpatient nephrology, resume if deemed appropriate clopidogrel 75 mg tablet 75 mg PO DAILY RF: 0 pantoprazole 40 mg tablet,delayed release (DR/EC) 40 mg PO DAILY RF: 0 levothyroxine 112 mcg Tablet 224 mcg PO DAILY RF: 0 aspirin 81 mg Tablet,Chewable 81 mg PO DAILY RF: 0 Auryxia 210 mg iron tablet 210 mg PO TID RF: 0 multivitamin [Multiple Vitamins] Tablet 1 tab PO DAILY RF: 0 paricalcitol [Zemplar] 1 mcg capsule See Rx Instructions .ROUTE .COMPLEX RF: 0 nitroglycerin 0.4 mg Tablet, Sublingual 0.4 mg SUBLINGUAL Q5M PRN (Reason: Chest Pain) RF: 0 atorvastatin 40 mg tablet 40 mg PO DAILY RF: 0 metoclopramide HCl [Reglan] 5 mg tablet See Rx Instructions .ROUTE .COMPLEX RF: 0 Discharge Orders: Discharge Order (Routine); Ordered 09/26/19 Ordered By: Kacie Goodrich Referrals: Yovany Leonardo MD [Primary Care Provider] - Discharge Date/Time: 09/26/19 22:04 Coding Level of Care Code ED Turbo Generator Oiler for Chg Fwd Exam Comprehensive
[2019-09-26] MEDS: ondansetron 2 mg/ML SDV 2 mL 4 MG IM (18:15)
[2019-09-26 18:17] LABS: Basophils % 0.7 %; Eosinophils # 0.1 10^3/uL (0.0-0.8); Eosinophils % 1.6 %; Hematocrit 28.5 % (37.0-47.0); Lymphocytes # 1.5 10^3/uL (0.8-4.8); Lymphocytes % 24.7 %; Mean Corpuscular HGB Conc 35.1 g/dL (30.0-36.0); Mean Corpuscular Hemoglobin 33.2 pg (28.0-34.0); Mean Corpuscular Volume 94.7 fL (81-99); Mean Platelet Volume 11.5 fL (7.4-10.4); Monocytes # 0.5 10^3/uL (0.2-0.9); Monocytes % 7.7 %; Neutrophils % 65.1 %; Nucleated Red Blood Cells % 0 %; Platelet Count 215 10^3/cmm (130-400); Red Blood Count 3.01 10^6/uL (4.1-5.3); Red Cell Distribution Width 12.8 % (12.1-15.1); White Blood Count 6.1 10^3/uL (4.0-10.0)
[2019-09-26 18:54] LABS: Alanine Aminotransferase 16 U/L (0-33); Albumin Level 3.6 g/dL (3.5-5.2); Alkaline Phosphatase 108 IU/L (35-105); Anion Gap 20.4 (5-19); Aspartate Amino Transferase 13 U/L (0-32); Blood Urea Nitrogen 39 mg/dL (6-20); Calcium 9.7 mg/dL (8.5-10.5); Carbon Dioxide 25 mmol/L (22-29); Chloride 88 mmol/L (98-107); Glomerular Filtration Rate 5.6 mL/min (90-130); Glucose 210 mg/dL (65-115); Osmolality Calculated 274 mOsm/kg (285-295); Potassium 3.4 mmol/L (3.5-5.1); Sodium 130 mmol/L (136-145); Thyroid Stimulating Hormone 0.69 uIU/mL (0.27-4.20); Total Bilirubin 0.7 mg/dL (0.15-1.2); Total Protein 6.6 g/dL (6.6-8.7)
[2019-09-26 19:00] VITALS: BP 114/68; PULSE 72; RESP 18; O2SAT 98
[2019-09-26 19:15] LABS: Troponin(5th) Baseline 166 ng/mL (0-10)
--- NOTE | 2019-09-26 19:58 | ECG_ITS ---
Measurements Intervals [place] Rate: 71 P: -17 WI: 181 QRS: -53 QRSD: 87 T: -7 QT: 392 QTc: 427 SINUS RHYTHM LOW QRS VOLTAGE IN EXTREMITY LEADS [QRS DEFLECTION < 0.5 mV IN LIMB LEADS] POSSIBLE ANTERIOR MYOCARDIAL INFARCTION [30 ms Q WAVE IN V3/V4, OR R < 0.2 mV IN V4], PROBABLY OLD INFERIOR MYOCARDIAL INFARCTION [40+ ms Q WAVE AND/OR ST/T ABNORMALITY IN II/aVF], OF INDETERMINATE AGE Compared to ECG 09/26/2019 18:04:39 Ectopic atrial rhythm no longer present Myocardial infarct finding still present Electronically Signed On 09-28-2019 6:44:16 CDT by Manny Tan M.D. [email or web address]
[2019-09-26] MEDS: valproic acid inj 500 MG in sodium chloride 0.9% 50 ML 55 MG IV (20:07)
[2019-09-26] MEDS: diphenhydrAMINE 50 mg/mL SDV 1mL 25 MG IVP (20:07)
[2019-09-26] MEDS: LORazepam 2 mg/mL INJ 1 mL 1 MG IVP (20:56)
[2019-09-26 21:04] LABS: Troponin 5 2HR Delta 4.8 ABS# (0-10)
[2019-09-26 21:15] LABS: Troponin 5 2HR 170.8 ng/mL (0-10)
[2019-09-26 22:03] VITALS: BP 105/63; PULSE 76; RESP 18; O2SAT 97
--- NOTE | 2019-09-26 23:58 | ECG_ITS ---
Measurements Intervals [place] Rate: 72 P: -56 W[place]: 169 QRS: -43 QRSD: 90 T: -10 QT: 385 QTc: 424 ECTOPIC ATRIAL RHYTHM LOW QRS VOLTAGE IN EXTREMITY LEADS [QRS DEFLECTION < 0.5 mV IN LIMB LEADS] POSSIBLE ANTERIOR MYOCARDIAL INFARCTION , PROBABLY OLD [30 ms Q WAVE IN V3/V4, OR R < 0.2 mV IN V4] INFERIOR MYOCARDIAL INFARCTION , OF INDETERMINATE AGE [40+ ms Q WAVE AND/OR ST/T ABNORMALITY IN II/aVF] Compared to ECG 09/08/2019 11:55:01 Ectopic atrial rhythm now present Sinus rhythm no longer present Myocardial infarct finding still present Electronically Signed On 09-26-2019 18:21:12 CDT by Gerald Smith M.D. [email or web address]
== END 2019-09-26 22:04 | disposition home or self-care (01) ==
PROVIDERS: Emergency Provider Physician Assistant; Family Provider Internal Medicine; PCP Internal Medicine
DX: I13.2 Hypertensive heart and chronic kidney disease with heart failure and with stage 5 chronic kidney disease, or end stage renal disease (principal); I50.32 Chronic diastolic (congestive) heart failure; Z99.2 Dependence on renal dialysis; E11.22 Type 2 diabetes mellitus with diabetic chronic kidney disease; I12.0 Hypertensive chronic kidney disease with stage 5 chronic kidney disease or end stage renal disease; N18.6 End stage renal disease; Z79.4 Long term (current) use of insulin; F41.9 Anxiety disorder, unspecified; I25.10 Atherosclerotic heart disease of native coronary artery without angina pectoris; K21.9 Gastro-esophageal reflux disease without esophagitis; E78.5 Hyperlipidemia, unspecified; E03.9 Hypothyroidism, unspecified; I73.9 Peripheral vascular disease, unspecified; Z09 Encounter for follow-up examination after completed treatment for conditions other than malignant neoplasm; Z86.73 Personal history of transient ischemic attack (TIA), and cerebral infarction without residual deficits; Z79.02 Long term (current) use of antithrombotics/antiplatelets; Z79.82 Long term (current) use of aspirin
CPT/HCPCS: 12345; 70450; 71045; 80048; 80053; 80202; 84443; 84484; 85025; 93005; 96365; 96374; 96375; 99282; 99284; J1200; J2060; J2405

== ENCOUNTER 2019-10-03 18:50 | Outpatient (CLI) | payer MEDICARE, MEDICAID, SELFPAY ==
[2019-10-03 19:48] LABS: Basophils % 0.7 %; Eosinophils # 0.3 10^3/uL (0.0-0.8); Eosinophils % 4.2 %; Hematocrit 27.5 % (37.0-47.0); Hemoglobin 9.2 g/dL (11.5-15.3); Lymphocytes # 1.2 10^3/uL (0.8-4.8); Lymphocytes % 20.6 %; Mean Corpuscular HGB Conc 33.5 g/dL (30.0-36.0); Mean Corpuscular Hemoglobin 33.1 pg (28.0-34.0); Mean Corpuscular Volume 98.9 fL (81-99); Mean Platelet Volume 12.9 fL (7.4-10.4); Monocytes # 0.5 10^3/uL (0.2-0.9); Monocytes % 7.6 %; Neutrophils % 66.7 %; Nucleated Red Blood Cells % 0 %; Platelet Count 150 10^3/cmm (130-400); Red Blood Count 2.78 10^6/uL (4.1-5.3); Red Cell Distribution Width 13.1 % (12.1-15.1); White Blood Count 5.9 10^3/uL (4.0-10.0)
[2019-10-03 20:55] LABS: Anion Gap 22.2 (5-19); Blood Urea Nitrogen 41 mg/dL (6-20); Calcium 9.5 mg/dL (8.5-10.5); Carbon Dioxide 25 mmol/L (22-29); Chloride 89 mmol/L (98-107); Glomerular Filtration Rate 6.1 mL/min (90-130); Glucose 207 mg/dL (65-115); Osmolality Calculated 280 mOsm/kg (285-295); Potassium 3.2 mmol/L (3.5-5.1); Sodium 133 mmol/L (136-145)
[2019-10-03 21:08] LABS: Vancomycin Trough 25.8 ug/mL (10-15)
== END 2019-10-03 18:51 | disposition home or self-care (01) ==
LOC: LAB 18:53
PROVIDERS: Family Provider Internal Medicine; PCP Internal Medicine; Visit Provider Thoracic Surgery (Cardiothoracic Vascular Surgery)
DX: M86.9 Osteomyelitis, unspecified (principal)
CPT/HCPCS: 80048; 80202; 85025

== ENCOUNTER 2019-10-05 13:09 | Outpatient (RCR) | payer MEDICARE, MEDICAID, SELFPAY ==
[2019-09-06 11:43] VITALS: BMI 36.6
[2019-09-06] MEDS: vancomycin 1,000 MG in sodium chloride 0.9% 250 ML 250 MG IV (12:00)
[2019-09-06 13:17] VITALS: BP 133/80; PULSE 95; RESP 18; TEMP 36.7; O2SAT 95
[2019-09-22 10:35] LABS: Basophils # 0.1 10^3/uL (0.0-0.1); Basophils % 0.9 %; Eosinophils # 0.2 10^3/uL (0.0-0.8); Eosinophils % 3.2 %; Hematocrit 25.6 % (37.0-47.0); Hemoglobin 8.6 g/dL (11.5-15.3); Lymphocytes # 1.3 10^3/uL (0.8-4.8); Lymphocytes % 20.2 %; Mean Corpuscular HGB Conc 33.6 g/dL (30.0-36.0); Mean Corpuscular Hemoglobin 32.7 pg (28.0-34.0); Mean Corpuscular Volume 97.3 fL (81-99); Mean Platelet Volume 11.9 fL (7.4-10.4); Monocytes # 0.5 10^3/uL (0.2-0.9); Monocytes % 7.8 %; Neutrophils # 4.4 10^3/uL (1.8-7.7); Neutrophils % 67.6 %; Nucleated Red Blood Cells % 0 %; Platelet Count 221 10^3/cmm (130-400); Red Blood Count 2.63 10^6/uL (4.1-5.3); Red Cell Distribution Width 13.2 % (12.1-15.1); White Blood Count 6.5 10^3/uL (4.0-10.0)
[2019-09-22 11:15] LABS: Vancomycin Trough 26.9 ug/mL (10-15)
== END 2019-10-05 23:59 | disposition home or self-care (01) ==
LOC: WOUND 13:09
PROVIDERS: Thoracic Surgery (Cardiothoracic Vascular Surgery); Family Provider Internal Medicine; PCP Internal Medicine; Visit Provider Nurse Practitioner Family
DX: E11.621 Type 2 diabetes mellitus with foot ulcer (principal); L97.522 Non-pressure chronic ulcer of other part of left foot with fat layer exposed; Z89.422 Acquired absence of other left toe(s)
CPT/HCPCS: 11044; 80202; 85025; 87070; 87077; 87176; 87186; 87205; 96365; J3370; J7050

== ENCOUNTER 2019-10-06 13:15 | Outpatient (CLI) | payer MEDICARE, MEDICAID, SELFPAY | END 2019-10-06 13:16 | disposition home or self-care (01) | LOC: WOUND 10-09 13:09 | PROVIDERS: Family Provider Internal Medicine; PCP Internal Medicine; Visit Provider Surgery | DX: E11.622 Type 2 diabetes mellitus with other skin ulcer (principal); L97.906 Non-pressure chronic ulcer of unspecified part of unspecified lower leg with bone involvement without evidence of necrosis | CPT/HCPCS: G0277 ==

== ENCOUNTER 2019-10-09 13:06 | Outpatient (CLI) | payer MEDICARE, MEDICAID, SELFPAY | END 2019-10-09 13:07 | disposition home or self-care (01) | PROVIDERS: Family Provider Internal Medicine; PCP Internal Medicine; Visit Provider Emergency Medicine | DX: E11.621 Type 2 diabetes mellitus with foot ulcer (principal); L97.522 Non-pressure chronic ulcer of other part of left foot with fat layer exposed; Z89.422 Acquired absence of other left toe(s) | CPT/HCPCS: 99183; G0277 ==

== ENCOUNTER 2019-10-10 13:02 | Outpatient (CLI) | payer MEDICARE, MEDICAID, SELFPAY | END 2019-10-10 13:03 | disposition home or self-care (01) | LOC: WOUND 13:03 | PROVIDERS: Family Provider Internal Medicine; PCP Internal Medicine; Visit Provider Thoracic Surgery (Cardiothoracic Vascular Surgery) | DX: E11.621 Type 2 diabetes mellitus with foot ulcer (principal); L97.522 Non-pressure chronic ulcer of other part of left foot with fat layer exposed; Z89.422 Acquired absence of other left toe(s); M86.672 Other chronic osteomyelitis, left ankle and foot | CPT/HCPCS: 11042; 99183; L3260 ==

== ENCOUNTER 2019-10-10 20:29 | Outpatient (CLI) | payer MEDICARE, MEDICAID, SELFPAY | END 2019-10-10 20:30 | disposition home or self-care (01) | LOC: LAB 20:33 | PROVIDERS: Family Provider Internal Medicine; PCP Internal Medicine; Visit Provider Thoracic Surgery (Cardiothoracic Vascular Surgery) | DX: M86.9 Osteomyelitis, unspecified (principal) | CPT/HCPCS: 80202 ==

== ENCOUNTER 2019-10-12 13:18 | Outpatient (CLI) | payer MEDICARE, MEDICAID, SELFPAY | END 2019-10-12 13:19 | disposition home or self-care (01) | LOC: WOUND 13:19 | PROVIDERS: Family Provider Internal Medicine; PCP Internal Medicine; Visit Provider Nurse Practitioner Family | DX: E11.621 Type 2 diabetes mellitus with foot ulcer (principal); L98.496 Non-pressure chronic ulcer of skin of other sites with bone involvement without evidence of necrosis | CPT/HCPCS: G0277; L3260 ==

== ENCOUNTER 2019-10-13 13:09 | Outpatient (CLI) | payer MEDICARE, MEDICAID, SELFPAY | END 2019-10-13 13:10 | disposition home or self-care (01) | LOC: WOUND 13:10 | PROVIDERS: Family Provider Internal Medicine; PCP Internal Medicine; Visit Provider Surgery | DX: E11.621 Type 2 diabetes mellitus with foot ulcer (principal); L97.526 Non-pressure chronic ulcer of other part of left foot with bone involvement without evidence of necrosis; Z89.422 Acquired absence of other left toe(s) | CPT/HCPCS: G0277 ==

== ENCOUNTER 2019-10-17 13:06 | Outpatient (CLI) | payer MEDICARE, MEDICAID, SELFPAY | END 2019-10-17 13:07 | disposition home or self-care (01) | LOC: WOUND 13:07 | PROVIDERS: Family Provider Internal Medicine; PCP Internal Medicine; Visit Provider Thoracic Surgery (Cardiothoracic Vascular Surgery) | DX: E11.621 Type 2 diabetes mellitus with foot ulcer (principal); L97.522 Non-pressure chronic ulcer of other part of left foot with fat layer exposed; Z89.422 Acquired absence of other left toe(s) | CPT/HCPCS: 11042; 15275; C5275; G0277; Q4137 ==

== ENCOUNTER 2019-10-17 18:34 | Outpatient (CLI) | payer MEDICARE, MEDICAID, SELFPAY ==
[2019-10-17 20:41] LABS: Vancomycin Trough 13.3 ug/mL (10-15)
== END 2019-10-17 18:35 | disposition home or self-care (01) ==
LOC: LAB 18:40
PROVIDERS: Family Provider Internal Medicine; PCP Internal Medicine; Visit Provider Thoracic Surgery (Cardiothoracic Vascular Surgery)
DX: M86.9 Osteomyelitis, unspecified (principal)
CPT/HCPCS: 80202

== ENCOUNTER 2019-10-19 13:20 | Outpatient (CLI) | payer MEDICARE, MEDICAID, SELFPAY | END 2019-10-19 13:21 | disposition home or self-care (01) | LOC: WOUND 13:21 | PROVIDERS: Family Provider Internal Medicine; PCP Internal Medicine; Visit Provider Nurse Practitioner Family | DX: E11.621 Type 2 diabetes mellitus with foot ulcer (principal); L98.496 Non-pressure chronic ulcer of skin of other sites with bone involvement without evidence of necrosis | CPT/HCPCS: G0277 ==

== ENCOUNTER 2019-10-23 13:05 | Outpatient (CLI) | payer MEDICARE, MEDICAID, SELFPAY | END 2019-10-23 13:06 | disposition home or self-care (01) | LOC: WOUND 13:06 | PROVIDERS: Family Provider Internal Medicine; PCP Internal Medicine; Visit Provider Nurse Practitioner Family | DX: E11.622 Type 2 diabetes mellitus with other skin ulcer (principal); L97.906 Non-pressure chronic ulcer of unspecified part of unspecified lower leg with bone involvement without evidence of necrosis | CPT/HCPCS: G0277 ==

== ENCOUNTER 2019-10-24 13:23 | Outpatient (CLI) | payer MEDICARE, MEDICAID, SELFPAY | END 2019-10-24 13:24 | disposition home or self-care (01) | LOC: WOUND 13:24 | PROVIDERS: Family Provider Internal Medicine; PCP Internal Medicine; Visit Provider Thoracic Surgery (Cardiothoracic Vascular Surgery) | DX: E11.621 Type 2 diabetes mellitus with foot ulcer (principal); L97.522 Non-pressure chronic ulcer of other part of left foot with fat layer exposed; Z89.422 Acquired absence of other left toe(s) | CPT/HCPCS: 15275; G0277; Q4137 ==

== ENCOUNTER 2019-10-25 13:08 | Outpatient (CLI) | payer MEDICARE, MEDICAID, SELFPAY | END 2019-10-25 13:09 | disposition home or self-care (01) | LOC: WOUND 13:12 | PROVIDERS: Family Provider Internal Medicine; PCP Internal Medicine; Visit Provider Nurse Practitioner Family | DX: E11.622 Type 2 diabetes mellitus with other skin ulcer (principal); L97.906 Non-pressure chronic ulcer of unspecified part of unspecified lower leg with bone involvement without evidence of necrosis | CPT/HCPCS: G0277 ==

== ENCOUNTER 2019-10-26 13:03 | Outpatient (CLI) | payer MEDICARE, MEDICAID, SELFPAY | END 2019-10-26 13:04 | disposition home or self-care (01) | LOC: WOUND 13:04 | PROVIDERS: Family Provider Internal Medicine; PCP Internal Medicine; Visit Provider Nurse Practitioner Family | DX: E11.622 Type 2 diabetes mellitus with other skin ulcer (principal); L97.906 Non-pressure chronic ulcer of unspecified part of unspecified lower leg with bone involvement without evidence of necrosis | CPT/HCPCS: G0277 ==

== ENCOUNTER 2019-10-27 13:06 | Outpatient (CLI) | payer MEDICARE, MEDICAID, SELFPAY | END 2019-10-27 13:07 | disposition home or self-care (01) | LOC: WOUND 13:08 | PROVIDERS: Family Provider Internal Medicine; PCP Internal Medicine; Visit Provider Surgery | DX: E11.621 Type 2 diabetes mellitus with foot ulcer (principal); L97.526 Non-pressure chronic ulcer of other part of left foot with bone involvement without evidence of necrosis; Z89.422 Acquired absence of other left toe(s) | CPT/HCPCS: G0277 ==

== ENCOUNTER 2019-10-31 15:35 | Outpatient (CLI) | payer MEDICARE, MEDICAID, SELFPAY | END 2019-10-31 15:36 | disposition home or self-care (01) | LOC: WOUND 15:36 | PROVIDERS: Family Provider Internal Medicine; PCP Internal Medicine; Visit Provider Thoracic Surgery (Cardiothoracic Vascular Surgery) | DX: E11.621 Type 2 diabetes mellitus with foot ulcer (principal); L97.522 Non-pressure chronic ulcer of other part of left foot with fat layer exposed; Z89.422 Acquired absence of other left toe(s) | CPT/HCPCS: 15275; G0277; Q4137 ==

== ENCOUNTER 2019-11-08 | Outpatient (CLI) | payer MEDICARE, MEDICAID, SELFPAY | END 2019-11-08 23:00 | disposition home or self-care (01) | LOC: WOUND 02-05 13:04 | PROVIDERS: PCP Internal Medicine; Visit Provider Thoracic Surgery (Cardiothoracic Vascular Surgery) | DX: E11.621 Type 2 diabetes mellitus with foot ulcer (principal); L97.522 Non-pressure chronic ulcer of other part of left foot with fat layer exposed; Z89.422 Acquired absence of other left toe(s) | CPT/HCPCS: 11042 ==

== ENCOUNTER 2019-11-14 14:54 | Outpatient (RCR) | payer MEDICARE, MEDICAID, SELFPAY | END 2019-12-05 23:59 | disposition home or self-care (01) | LOC: WOUND 14:54 | PROVIDERS: Family Provider Internal Medicine; PCP Internal Medicine; Visit Provider Thoracic Surgery (Cardiothoracic Vascular Surgery) | DX: E11.621 Type 2 diabetes mellitus with foot ulcer (principal); L97.522 Non-pressure chronic ulcer of other part of left foot with fat layer exposed; Z89.422 Acquired absence of other left toe(s) | CPT/HCPCS: 11042 ==

== ENCOUNTER → 2019-11-15 13:00 | Outpatient (BNVA) | payer MEDICARE, MEDICAID, SELFPAY | PROVIDERS: Family Provider Internal Medicine; PCP Internal Medicine; Visit Provider Nurse Practitioner Family | DX: Z20.828 Contact with and (suspected) exposure to other viral communicable diseases (principal) | CPT/HCPCS: 87635 ==

== ENCOUNTER 2019-11-21 14:33 | Outpatient (CLI) | payer MEDICARE, MEDICAID, SELFPAY | END 2019-11-21 14:34 | disposition home or self-care (01) | LOC: WOUND 14:36 | PROVIDERS: Family Provider Internal Medicine; PCP Internal Medicine; Visit Provider Thoracic Surgery (Cardiothoracic Vascular Surgery) | DX: E11.621 Type 2 diabetes mellitus with foot ulcer (principal); L97.522 Non-pressure chronic ulcer of other part of left foot with fat layer exposed; Z89.422 Acquired absence of other left toe(s) | CPT/HCPCS: 11042 ==

== ENCOUNTER 2019-11-28 11:11 | Outpatient (CLI) | payer MEDICARE, MEDICAID, SELFPAY | END 2019-11-28 11:12 | disposition home or self-care (01) | LOC: WOUND 11:19 | PROVIDERS: Family Provider Internal Medicine; PCP Internal Medicine; Visit Provider Thoracic Surgery (Cardiothoracic Vascular Surgery) | DX: E11.621 Type 2 diabetes mellitus with foot ulcer (principal); L97.522 Non-pressure chronic ulcer of other part of left foot with fat layer exposed; Z89.422 Acquired absence of other left toe(s) | CPT/HCPCS: 11042 ==

== ENCOUNTER 2019-12-05 10:50 | Outpatient (CLI) | payer MEDICARE, MEDICAID, SELFPAY | END 2019-12-05 10:51 | disposition home or self-care (01) | LOC: WOUND 10:51 | PROVIDERS: Family Provider Internal Medicine; PCP Internal Medicine; Visit Provider Thoracic Surgery (Cardiothoracic Vascular Surgery) | DX: E11.621 Type 2 diabetes mellitus with foot ulcer (principal); L97.529 Non-pressure chronic ulcer of other part of left foot with unspecified severity; Z89.422 Acquired absence of other left toe(s) | CPT/HCPCS: 80053; 81003; 87077; 87086; 87186; 99212 ==

== ENCOUNTER 2019-12-24 09:55 | Outpatient (RCR) | payer MEDICARE, MEDICAID, SELFPAY ==
[2019-12-11 15:16] VITALS: BP 113/79; PULSE 71; RESP 18; TEMP 36.6; O2SAT 97; BMI 34.7
[2019-12-12 05:00] VITALS: BP 100/64; PULSE 69; RESP 18; TEMP 36.7; O2SAT 95
[2019-12-12 14:25] VITALS: BP 108/65; PULSE 69; RESP 18; TEMP 36.5; O2SAT 98
[2019-12-14 15:23] VITALS: BP 98/63; PULSE 65; RESP 18; TEMP 36.3; O2SAT 96
[2019-12-15 12:55] VITALS: BP 99/63; PULSE 61; RESP 16; O2SAT 95
[2019-12-16 10:05] VITALS: BP 97/66; PULSE 59; RESP 18; TEMP 36.5; O2SAT 97
[2019-12-16 10:39] LABS: Glucose Point of Care 128 mg/dL (70-110)
[2019-12-17 10:04] VITALS: BP 98/64; PULSE 61; RESP 17; TEMP 36.4; O2SAT 97
[2019-12-18 15:03] VITALS: BP 112/67; PULSE 72; RESP 18; TEMP 36.6; O2SAT 97
[2019-12-19 14:59] VITALS: BP 130/74; PULSE 61; RESP 18; TEMP 36.6; O2SAT 95
--- NOTE | 2019-12-19 15:07 | SUR.PREOP ---
1507 Pt states she is very fatigued. States, I have to fight to keep my eyes open . States the fatigue started 2-3 days ago. Ertapenem IVPB started 12/11/19 and 14 day course due to be complete 12/24/19. 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 Dr. Leonardo's nurse Yulissa notified of change in patient status.
[2019-12-20 14:42] VITALS: BP 107/55; PULSE 65; RESP 18; TEMP 36.6; O2SAT 98
--- NOTE | 2019-12-20 14:44 | SUR.PREOP ---
0374 Pt states she is not as fatigued today as she was yesterday. VSS. Midline to right basilic vein patent.
[2019-12-21 15:26] VITALS: BP 106/77; PULSE 115; RESP 18; TEMP 36.1; O2SAT 95
[2019-12-22 14:39] VITALS: BP 92/56; PULSE 60; RESP 18; TEMP 36.1; O2SAT 98
[2019-12-23 10:08] VITALS: BP 93/58; PULSE 65; RESP 18; TEMP 36.8; O2SAT 95
[2019-12-24 10:36] VITALS: BP 103/69; PULSE 59; RESP 16; TEMP 36.1; O2SAT 97
== END 2020-01-05 23:59 | disposition home or self-care (01) ==
LOC: GILAB 09:55
PROVIDERS: Family Provider Internal Medicine; PCP Internal Medicine; Visit Provider Nurse Practitioner Family
DX: Z45.2 Encounter for adjustment and management of vascular access device (principal)
CPT/HCPCS: 36416; 36569; 80053; 82962; 85025; 96365; 96366; J1335; J1642

== ENCOUNTER → 2019-12-27 10:00 | Outpatient (BNVA) | payer MEDICARE, MEDICAID, SELFPAY | PROVIDERS: Family Provider Internal Medicine; PCP Internal Medicine; Visit Provider Nurse Practitioner Family | DX: E87.1 Hypo-osmolality and hyponatremia (principal); N39.0 Urinary tract infection, site not specified; A49.9 Bacterial infection, unspecified; Z16.12 Extended spectrum beta lactamase (ESBL) resistance; S98.01 Complete traumatic amputation of foot at ankle level; R29.6 Repeated falls; R54 Age-related physical debility | CPT/HCPCS: 80053; 85025 ==

== ENCOUNTER 2020-01-04 16:10 | Outpatient (CLI) | payer MEDICARE, MEDICAID, SELFPAY ==
[2020-01-04 18:16] LABS: Urine Appearance Clear (CLEAR); Urine Color Yellow (Yellow)
[2020-01-04 18:17] LABS: Add Urine Microscopic? YES; Bilirubin Urine Neg (NEGATIVE); Blood Urine 2+ (Negative); Glucose Urine UA 2+ (Normal); Ketones Urine 1+ (Negative); Leukocyte Esterase Urine 2+ (Negative); Nitrate Urine Negative (Negative); Protein Urine 3+ (Negative); Specific Gravity, Urine 1.015 (1.005-1.030); Urobilinogen Urine Neg (Negative); pH Urine 5 (5-7)
[2020-01-04 18:19] LABS: Add Urine Culture? No; Bacteria Urine 1+; Squamous Epithelial Cell Urine 0-4 (0-5); WBC Urine TOO NUMEROUS TO CNT /hpf (0-5)
== END 2020-01-04 16:11 | disposition home or self-care (01) ==
LOC: LAB 16:13
PROVIDERS: PCP Internal Medicine; Visit Provider Internal Medicine
DX: N39.0 Urinary tract infection, site not specified (principal)
CPT/HCPCS: 81001; 81003; 87086

== ENCOUNTER 2020-01-10 11:15 | Outpatient (CLI) | payer MEDICARE, MEDICAID, SELFPAY ==
[2020-01-10 12:15] LABS: Add Urine Microscopic? YES; Bilirubin Urine Neg (NEGATIVE); Blood Urine 2+ (Negative); Glucose Urine UA 2+ (Normal); Ketones Urine Negative (Negative); Leukocyte Esterase Urine 2+ (Negative); Nitrate Urine Negative (Negative); Protein Urine 2+ (Negative); Specific Gravity, Urine 1.015 (1.005-1.030); Urine Appearance Cloudy (CLEAR); Urine Color Yellow (Yellow); Urobilinogen Urine Neg (Negative); pH Urine 5 (5-7)
[2020-01-10 12:29] LABS: RBC Urine 0-4 /hpf (0-2); WBC Urine 80-100 /hpf (0-5)
[2020-01-10 12:30] LABS: Add Urine Culture? No; Bacteria Urine 1+
== END 2020-01-10 11:16 | disposition home or self-care (01) ==
PROVIDERS: PCP Internal Medicine; Visit Provider Internal Medicine
DX: N39.0 Urinary tract infection, site not specified (principal)
CPT/HCPCS: 81001

== ENCOUNTER 2020-01-12 16:18 | Outpatient (CLI) | payer MEDICARE, MEDICAID, SELFPAY ==
[2020-01-12 17:52] LABS: Add Urine Microscopic? YES; Bilirubin Urine Neg (NEGATIVE); Blood Urine 2+ (Negative); Glucose Urine UA 2+ (Normal); Ketones Urine Negative (Negative); Leukocyte Esterase Urine Negative (Negative); Nitrate Urine Negative (Negative); Protein Urine 2+ (Negative); Urine Appearance SL Hazy (CLEAR); Urine Color Yellow (Yellow); Urobilinogen Urine Norm (Negative); pH Urine 5 (5-7)
[2020-01-12 17:53] LABS: Add Urine Culture? Yes; Bacteria Urine 2+; Coarse Granular Casts Urine 0-4 /lpf; Squamous Epithelial Cell Urine 0-4 (0-5); WBC Urine 40-55 /hpf (0-5)
== END 2020-01-12 16:19 | disposition home or self-care (01) ==
LOC: LAB 16:23
PROVIDERS: PCP Internal Medicine; Visit Provider Internal Medicine
DX: N39.0 Urinary tract infection, site not specified (principal)
CPT/HCPCS: 81001; 81003; 87077; 87086; 87106; 87186

== ENCOUNTER 2020-01-17 09:53 | Emergency (ER) | payer MEDICARE, MEDICAID, SELFPAY ==
[2020-01-17 10:00] VITALS: BP 152/80; PULSE 63; RESP 13; TEMP 36.8; O2SAT 95; BMI 34.9
--- NOTE | 2020-01-17 10:03 | CT_ITS ---
WS: [id number] CT HEAD TECHNIQUE: Noncontrast CT of the head obtained from the skullbase to the vertex. CLINICAL INFORMATION: seizures COMPARISON: September 26, 2019 DLP: 742.[address] scans at [facility] use at least one of these dose optimization techniques: automat ed exposure control; mA and/or kV adjustment per patient size (includes targeted exams where dose is matched to clinical indication); or iterative reconstruction. FINDINGS: No evidence of intracranial hemorrhage or mass effect. Ventricular system and basal cisterns are hernandez nt. Mild small vessel changes with mild parenchymal volume loss. No extra-axial fluid collections. No evidence of mass or mass effect. Normal anaya-white differentiation. Paranasal sinuses and mastoid air cells are well aerated. .Normal visualized soft tissues. Attempted Karan Daniels DO at 01/17/2020 10:[address]/CT head wo con* [id number] IMPRESSION: 1. No evidence of intracranial hemorrhage or mass effect. 2. Mild small vessel changes. Mild parenchymal volume loss. 3. No acute intracranial findings.
[2020-01-17 10:10] VITALS: O2SAT 95
[2020-01-17 10:52] LABS: Basophils # 0.1 10^3/uL (0.0-0.1); Basophils % 0.7 %; Eosinophils # 0.3 10^3/uL (0.0-0.8); Eosinophils % 3.8 %; Hemoglobin 10.8 g/dL (11.5-15.3); Lymphocytes # 1.2 10^3/uL (0.8-4.8); Lymphocytes % 15.6 %; Mean Corpuscular HGB Conc 32.7 g/dL (30.0-36.0); Mean Corpuscular Volume 100.9 fL (81-99); Mean Platelet Volume 10.7 fL (7.4-10.4); Monocytes # 0.4 10^3/uL (0.2-0.9); Monocytes % 5.8 %; Neutrophils # 5.58 10^3/uL (1.8-7.7); Neutrophils % 73.7 %; Nucleated Red Blood Cells % 0 %; Platelet Count 235 10^3/cmm (130-400); Red Blood Count 3.27 10^6/uL (4.1-5.3); Red Cell Distribution Width 13.7 % (12.1-15.1); White Blood Count 7.6 10^3/uL (4.0-10.0)
[2020-01-17 11:16] LABS: Alanine Aminotransferase 11 U/L (0-33); Albumin Level 3.3 g/dL (3.5-5.2); Alkaline Phosphatase 114 IU/L (35-105); Aspartate Amino Transferase 12 U/L (0-32); Blood Urea Nitrogen 28 mg/dL (6-20); Calcium 9.4 mg/dL (8.5-10.5); Carbon Dioxide 28 mmol/L (22-29); Chloride 97 mmol/L (98-107); Creatine Phosphokinase 61 U/L (26-192); Globulin 3.4 g/dL (1.3-4.6); Glomerular Filtration Rate 7.6 mL/min (90-130); Glucose 86 mg/dL (65-115); Osmolality Calculated 276 mOsm/kg (285-295); Sodium 135 mmol/L (136-145); Total Bilirubin 0.4 mg/dL (0.15-1.2); Total Protein 6.7 g/dL (6.6-8.7)
--- NOTE | 2020-01-17 11:16 | ED_ITS ---
HPI - General Adult General: Chief complaint: General Medical Stated complaint: convulsions, tremors Time Seen by Provider: 01/17/20 09:55 History of Present Illness: HPI narrative: 54-year-old female comes in at the direction of her home health nurse she had an episode this morning where she was convulsing and shaking but she was able to talk to the entire time she reports of jerking and shaking kind of sensation this morning but she recalls what was happening she recalls being able to talk she does have a slight headache and some dizziness she denies chest pain or abdominal pain she has no difficulty speaking or swallowing she has no recent respiratory symptoms she denies abdominal pain or chest pain. She has had recurrent UTIs in the past and is waiting on a urine culture to start antibiotics because she has had ESBL in the past. Onset (ago): hour(s) Radiation: non-radiation Severity: mild Associated symptoms: Reports headache(s); Deny chest pain, confusion, cough, diaphoresis, decreased appetite, dyspnea, fevers/chills, malaise, nausea, rash, palpitations, seizures, short of breath, syncope, vomiting or weakness Treatments prior to arrival: none Review of Systems Const: Denies: malaise or diaphoresis ENMT: Denies: throat pain, ear or mastoid pain, nasal discharge or nasal congestion Card: Denies: chest pain, palpitations or syncope Resp: Denies: dyspnea GI: Denies: nausea or vomiting : Denies: flank pain, difficulty voiding, dysuria, urinary frequency or urinary urgency Skin/Breast: Denies: rash Neuro: Reports: headache(s); Denies: confusion PFSH ED PFSH: Medical History Anxiety CAD (coronary artery disease) Chronic diastolic CHF (congestive heart failure) Chronic kidney disease, stage V On peritoneal dialysis. Follows with Dr Ann. Claustrophobia Depression Diabetes Insulin-dependent ESRD (end stage renal disease) Gastroparesis GERD (gastroesophageal reflux disease) HTN (hypertension) Hyperlipidemia Hypothyroidism Partial nontraumatic amputation of left foot (~06/2019) Peripheral vascular disease TIA (transient ischemic attack) Vitamin D deficiency Surgical History History of appendectomy History of heart artery stent History of hysterectomy History of left heart catheterization History of right below knee amputation Peritoneal dialysis catheter in place S/P cholecystectomy S/P PICC central line placement Status post amputation of toe Family History Denies family history of CAD (coronary artery disease) Clotting disorder Dementia Bleeding disorder Social History Smoking and tobacco status: never smoked Alcohol intake: never Household members: spouse and family History of recent travel: No Physical Exam Const: COMMON NORMALS: no acute distress GENERAL APPEARANCE: cooperative and comfortable ORIENTATION/CONSCIOUSNESS: Yes awake, Yes oriented to person, Yes oriented to place and Yes oriented to time HENMT: COMMON NORMALS: normocephalic, atraumatic and hearing grossly normal bilaterally HEAD & SCALP: normocephalic and atraumatic Eye: COMMON NORMALS: Equal, round and reactive pupils present, EOMs intact bilaterally, conjunctivae normal and no scleral icterus CONJUNCTIVA: Yes conjunctivae normal PUPIL: Yes Equal, round and reactive pupils present Neck/C-Spine: COMMON NORMALS: full ROM, no lymphadenopathy, supple and no JVD Lymph: LYMPHATIC: no lymphadenopathy noted and no lymphedema noted Resp: COMMON NORMALS: normal respiratory effort, No retractions, No use of accessory muscles and clear to auscultation bilaterally AUSCULTATION: clear to auscultation bilaterally Cardio: COMMON NORMALS: no JVD, regular rate, regular rhythm and No murmurs pr esent (Cardio) RATE: regular rate RHYTHM: regular rhythm GI: COMMON NORMALS: Soft to palpation and No hepatosplenomegaly present AUSCULTATION: Yes normoactive bowel sounds PALPATION: Yes Soft to palpation, No Tenderness to palpation present (GI), No Guarding due to palpation present (GI) and Yes No hepatosplenomegaly present Extremity: COMMON NORMALS: normal to inspection, capillary refill normal, no clubbing, cyanosis or edema, no calf tenderness and no pedal edema Neuro: SENSORIUM/ORIENTATION: Yes oriented to person, Yes oriented to place and Yes oriented to time Skin: COMMON NORMALS: no rashes or lesions noted GENERAL SKIN EXAM: no rashes or lesions noted Course Vital Signs: Vital signs: Vital Signs Temperature 98.3 F 01/17/20 10:00 Pulse Rate 64 01/17/20 13:59 Respiratory Rate 17 01/17/20 13:59 Blood Pressure 146/61 01/17/20 13:59 Pulse Oximetry 98 01/17/20 13:59 MDM - General Adult MDM Narrative: Medical decision making narrative: Patient does have elevated creatinine but that is actually improved from her usual baseline she is mildly hypokalemic. We will go ahead and discharge her home continue with peritoneal dialysis from that she is currently on follow-up with her primary care doctor Lab Data: Labs: Lab Results 01/17/20 01/17/20 Range/Units 10:44 10:44 WBC 7.6 (4.0-10.0) 10^3/ uL RBC 3.27 L (4.1-5.3) 10^6/u L Hgb 10.8 L (11.5-15.3) g/dL Hct 33.0 L (37.0-47.0) % MCV 100.9 H (81-99) fL MCH 33.0 (28.0-34.0) pg MCHC 32.7 (30.0-36.0) g/dL RDW 13.7 (12.1-15.1) % Plt Count 235 (130-400) 10^3/c mm MPV 10.7 H (7.4-10.4) fL Neut % (Auto) 73.7 % Lymph % (Auto) 15.6 % [place] % (Auto) 5.8 % Eos % (Auto) 3.8 % Baso % (Auto) 0.7 % Neut # (Auto) 5.58 (1.8-7.7) 10^3/u L Lymph # (Auto) 1.2 (0.8-4.8) 10^3/u L [place] # (Auto) 0.4 (0.2-0.9) 10^3/u L Eos # (Auto) 0.3 (0.0-0.8) 10^3/u L Baso # (Auto) 0.1 (0.0-0.1) 10^3/u L Nucleated RBC % (a uto) 0 % Nucleated RBCs # 0.0 /100WBC Sodium 135 L (136-145) mmol/L Potassium 3.0 L (3.5-5.1) mmol/L Chloride 97 L (98-107) mmol/L Carbon Dioxide 28 (22-29) mmol/L Anion Gap 13.0 (5-19) BUN 28 H (6-20) mg/dL Creatinine 5.8 H* (0.5-0.9) mg/dL GFR Calculation 7.6 L (90-130) mL/min Glucose 86 (65-115) mg/dL Calculated Osmolal ity 276 L (285-295) mOsm/k g Calcium 9.4 (8.5-10.5) mg/dL Total Bilirubin 0.4 (0.15-1.2) mg/dL AST 12 (0-32) U/L ALT 11 (0-33) U/L Alkaline Phosphata se 114 H (35-105) IU/L Creatine Kinase 61 (26-192) U/L Total Protein 6.7 (6.6-8.7) g/dL Albumin 3.3 L (3.5-5.2) g/dL Globulin 3.4 (1.3-4.6) g/dL Discharge Plan Discharge Patient Disposition: Home Clinical Impression: DAILY (generalized anxiety disorder), Peritoneal dialysis catheter in place, Diabetes Condition: Stable Prescriptions: No Action duloxetine 40 mg capsule, delayed rel sprinkle 40 mg PO DAILY Qty: 30 RF: 0 Lantus Solostar U-100 Insulin 100 unit/mL (3 mL) insulin pen 50 unit SUBCUT BID Qty: 15 RF: 5 pantoprazole 40 mg tablet,delayed release (DR/EC) See Rx Instructions .ROUTE .COMPLEX Qty: 30 RF: 0 levothyroxine 112 mcg tablet 224 mcg PO DAILY Qty: 30 RF: 3 metoprolol succinate 50 mg tablet extended release 24 hr 25 mg PO BID Qty: 60 RF: 3 Hold Instructions: Resume on 09/04/19. Hold until you see outpatient nephrology, resume if deemed appropriate aspirin 81 mg Tablet,Chewable 81 mg PO DAILY RF: 0 Auryxia 210 mg iron tablet 210 mg PO TID RF: 0 multivitamin [Multiple Vitamins] Tablet 1 tab PO DAILY RF: 0 paricalcitol [Zemplar] 1 mcg capsule See Rx Instructions .ROUTE .COMPLEX RF: 0 nitroglycerin 0.4 mg Tablet, Sublingual 0.4 mg SUBLINGUAL Q5M PRN (Reason: Chest Pain) RF: 0 atorvastatin 40 mg tablet 40 mg PO DAILY RF: 0 CoQ-10 100 mg Capsule 100 mg PO DAILY RF: 0 Vitamin D3 25 mcg (1,000 unit) Tablet,Chewable 25 mcg PO DAILY RF: 0 Fish Oil 300-1,000 mg Capsule,Delayed Release(Dr/Ec) 1 cap PO DAILY RF: 0 Referrals: Yovany Leonardo MD [Primary Care Provider] - Discharge Diet: Usual diet Discharge Activity: Resume usual activity Activity Restrictions/Additional Instructions: Follow-up with your primary care doctor Discharge Date/Time: 01/17/20 14:25 Coding Level of Care Code ED Steam Cleaning 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
[2020-01-17 12:00] VITALS: BP 124/93; PULSE 70; RESP 9; O2SAT 97
--- NOTE | 2020-01-17 12:38 | CT_ITS ---
WS: [id number] CTA OF THE CHEST WITH PULMONARY EMBOLISM PROTOCOL TECHNIQUE: High-resolution contrast enhanced CTA of the chest with coronal and sagittal reformatted i mages with pulmonary embolism protocol. MIP images are also reviewed. CLINICAL INFORMATION: dyspnea/elevated d dimer COMPARISON: CTA of the chest September 05, 2019 DLP: 555.[address] scans at [facility] use at least one of these dose optimization techniques: automat ed exposure control; mA and/or kV adjustment per patient size (includes targeted exams where dose is matched to clinical indication); or iterative reconstruction. FINDINGS: Proximal main pulmonary arteries are normal. Segmental and subsegmental pulmonary arteries are normal . No evidence of pulmonary embolus. Normal caliber thoracic aorta. Coronary calcification. No mediast inal or hilar lymphadenopathy. Slight atelectasis in the lung bases. No acute pulmonary infiltrates. No consolidation or pleural flu id. Subsegmental atelectasis right lower lobe. This is similar in appearance to September 05, 2019. Tiny noncalcified nodule right lower lobe unchanged since the prior examination measuring 3 mm. Mild perihepatic and perisplenic ascites partially visualized in the upper abdomen. Small esophageal hiatal hernia. Adrenal glands are normal. Bilateral renal cortical atrophy. Fatty atrophy of the panc reas. Cholecystectomy clips. Notified Karan Daniels DO at 01/17/2020 1:[address]/CT angio chest PE protcl [id number] IMPRESSION: 1. No evidence of pulmonary embolus. 2. No acute pulmonary infiltrates. Subsegmental atelectasis in the right great er than left lung base. 3. Tiny noncalcified nodule right lower lobe measuring 3 mm. 4. Mild perihepatic and perisplenic ascites partially visualized in the upper abdomen appears unchanged since September 05, 2019 and may be due to peritoneal olya lysis. 5. Prior cholecystectomy.
[2020-01-17] MEDS: iohexol 350 mg/mL 100 mL Btl IV (13:05)
--- NOTE | 2020-01-17 13:09 | PC.NURSE ---
pt back from CT by stretcher with tech
[2020-01-17 13:59] VITALS: BP 146/61; PULSE 64; RESP 17; O2SAT 98
== END 2020-01-17 14:25 | disposition home or self-care (01) ==
PROVIDERS: Emergency Provider Family Medicine; PCP Internal Medicine
DX: F41.1 Generalized anxiety disorder (principal); Z99.2 Dependence on renal dialysis; Z79.82 Long term (current) use of aspirin; Z79.4 Long term (current) use of insulin; I13.2 Hypertensive heart and chronic kidney disease with heart failure and with stage 5 chronic kidney disease, or end stage renal disease; E11.22 Type 2 diabetes mellitus with diabetic chronic kidney disease; N18.5 Chronic kidney disease, stage 5; I50.32 Chronic diastolic (congestive) heart failure; E78.5 Hyperlipidemia, unspecified; Z86.73 Personal history of transient ischemic attack (TIA), and cerebral infarction without residual deficits; I73.9 Peripheral vascular disease, unspecified; Z89.511 Acquired absence of right leg below knee
CPT/HCPCS: 12345; 36415; 70450; 71275; 80053; 82550; 85025; 99282; 99283; Q9967

== ENCOUNTER 2020-01-31 19:35 | Inpatient (IN) | payer MEDICARE, MEDICAID, SELFPAY ==
[2020-01-31] VITALS (7 sets, daily range): BP systolic 98–143; BP diastolic 59–97; PULSE 56–66; RESP 12–20; TEMP 36.7–36.9; O2SAT 96–100; BMI 34.9
--- NOTE | 2020-01-31 19:43 | ECG_ITS ---
[facility] Test Date: 2020-01-31 Pat Name: Rizwana Herzog Department: Room: Gender: Female Store Planner: jaleel : 1965 Requested By: Carlos A Jeronimo Order Number: [id number] Catherine MD: Soraya Ignacio M.D. Measurements Intervals [place] Rate: 61 P: -33 MD: 196 QRS: -38 QRSD: 86 T: -6 QT: 422 QTc: 427 Interpretive Statements SINUS RHYTHM POSSIBLE ANTERIOR MYOCARDIAL INFARCTION, PROBABLY OLD INFERIOR MYOCARDIAL INFARCTION, PROBABLY OLD Compared to ECG 09/26/2019 20:37:31 No significant changes Electronically Signed On 02-02-2020 20:44:13 CDT by Soraya Ignacio M.D. [email or web address]
--- NOTE | 2020-01-31 20:10 | ED_ITS ---
HPI - Dizziness General: Chief Complaint: Dizziness Stated Complaint: dizzy/syncope Time Seen by Provider: 01/31/20 19:59 History of Present Illness: HPI Narrative: This patient is a 54-year-old female who presents today with a syncopal episode. She says that she was getting up off the toilet and everything went dark and she passed out. She is not sure she completely passed out but she did fall and hit her right arm on the edge of the tub. She has been having increasing episodes like this over the last several weeks. This is the first time she is actually fallen with it. She talk to her doctor about it and they asked her to monitor her blood pressure at home. She noted that her blood pressure sitting was in the 150s and then standing dropped to the 80s. She normally takes blood pressure medicine. She is a diabetic and is on peritoneal dialysis. She has been doing that for about the last 2 years. She does not have a fistula and was only on hemodialysis for a few weeks prior to starting her peritoneal dialysis. She denies any medication changes or any changes with her dialysis protocols. She has not had any fever or abdominal pain. She does not have chest pain or palpitations but says her chest feels heavy. She also has had some shortness of breath. She denies nausea or vomiting. She only urinates a small amount about twice a day. She was treated not too long ago for urinary tract infection. Associated symptoms: Reports syncope; Denies chills, headache(s), malaise, nausea or vomiting Associated neuro symptoms: Deny numbness in extremities Review of Systems General: Reports: 10 or more systems reviewed and unremarkable except in HPI and below Const: Denies: fever(s), chills, fatigue or malaise Eyes: Denies: change in vision ENMT: Denies: odynophagia Card: Reports: syncope and other (Chest feels heavy); Denies: swelling of feet/ankles Resp: Denies: dyspnea, productive cough or non-productive cough GI: Denies: abdominal pain, nausea or vomiting : Denies: flank pain or difficulty voiding Musc: Denies: neck pain or back pain Skin/Breast: Denies: rash Neuro: Denies: headache(s), numbness in extremities or weakness in extremities Refugio/Lymph: Denies: easy bruising or easy bleeding PFSH ED PFSH: Medical History Anxiety CAD (coronary artery disease) Chronic diastolic CHF (congestive heart failure) Chronic kidney disease, stage V On peritoneal dialysis. Follows with Dr Ann. Claustrophobia Depression Diabetes Insulin-dependent ESRD (end stage renal disease) Gastroparesis GERD (gastroesophageal reflux disease) HTN (hypertension) Hyperlipidemia Hypothyroidism Partial nontraumatic amputation of left foot (~06/2019) Peripheral vascular disease TIA (transient ischemic attack) Vitamin D deficiency Surgical History History of appendectomy History of heart artery stent History of hysterectomy History of left heart catheterization History of right below knee amputation Peritoneal dialysis catheter in place S/P cholecystectomy S/P PICC central line placement Status post amputation of toe Family History Denies family history of CAD (coronary artery disease) Clotting disorder Dementia Bleeding disorder Social History Smoking and tobacco status: never smoked Alcohol intake: never Household members: spouse and family History of recent travel: No Physical Exam Const: COMMON NORMALS: no acute distress, patient oriented x3, no limitations and alert GENERAL APPEARANCE: cooperative and comfortable HENMT: HEAD & SCALP: normal to inspection FACE & SINUS: normal facial exam Eye: GENERAL EYE: appearance normal, both eyes and all related structures Neck/C-Spine: COMMON NORMALS: supple, no meningeal signs and no JVD Chest: COMMONS NORMALS: normal inspection of the chest Resp: COMMON NORMALS: normal respiratory effort, No use of accessory muscles and clear to auscultation bilaterally AUSCULTATION: clear to auscultation bilaterally Cardio: COMMON NORMALS: no JVD, regular rate, regular rhythm and No murmurs present (Cardio) RATE: regular rate RHYTHM: regular rhythm GI: COMMON NORMALS: Normal to inspection, nondistended, normoactive bowel sounds present, Soft to palpation and non-tender INSPECTION: Yes normal to inspection AUSCULTATION: Yes normoactive bowel sounds PALPATION: Yes Soft to palpation Back/Pelvis: COMMON NORMALS: thoracic and lumbar spine normal to inspection Extremity: COMMON NORMALS: normal to inspection Neuro: COMMON NORMALS: patient oriented x3, moves all extremities, no focal motor deficits and no sensory deficits noted SENSORIUM/ORIENTATION: Yes alert MENINGEAL SIGNS: Yes no meningeal signs Psych: COMMON NORMALS: mental status grossly normal, cooperative and normal affect Skin: COMMON NORMALS: no rashes or lesions noted and turgor normal GENERAL SKIN EXAM: no rashes or lesions noted and turgor normal Course ED course: Patient was stable throughout her ED stay. Orthostatics were not overtly positive but she describes positive orthostatics on her own home. She has some mild anemia. Troponins elevated, possibly due to her renal function. Admit for further evaluation of the cause of her syncopal episode. Vital Signs: Vital signs: Vital Signs Temperature 98.2 F 02/01/20 04:00 Pulse Rate 54 L 02/01/20 06:00 Respiratory Rate 17 02/01/20 06:00 Blood Pressure 98/44 02/01/20 06:00 Pulse Oximetry 95 02/01/20 06:00 MDM - Dizziness Lab Data: Labs: Lab Results 01/31/20 01/31/20 01/31/20 Range/Units 20:12 20:12 20:12 WBC 5.4 (4.0-10.0) 10^3/ uL RBC 3.17 L (4.1-5.3) 10^6/u L Hgb 10.2 L (11.5-15.3) g/dL Hct 31.1 L (37.0-47.0) % MCV 98.1 (81-99) fL MCH 32.2 (28.0-34.0) pg MCHC 32.8 (30.0-36.0) g/dL RDW 13.5 (12.1-15.1) % Plt Count 201 (130-400) 10^3/c mm MPV 10.9 H (7.4-10.4) fL Neut % (Auto) 59.6 % Lymph % (Auto) 25.7 % [place] % (Auto) 7.4 % Eos % (Auto) 6.3 % Baso % (Auto) 0.6 % Neut # (Auto) 3.21 (1.8-7.7) 10^3/u L Lymph # (Auto) 1.4 (0.8-4.8) 10^3/u L [place] # (Auto) 0.4 (0.2-0.9) 10^3/u L Eos # (Auto) 0.3 (0.0-0.8) 10^3/u L Baso # (Auto) 0.0 (0.0-0.1) 10^3/u L Nucleated RBC % (a uto) 0 % Nucleated RBCs # 0.0 /100WBC Sodium 133 L (136-145) mmol/L Potassium 3.5 (3.5-5.1) mmol/L Chloride 95 L (98-107) mmol/L Carbon Dioxide 26 (22-29) mmol/L Anion Gap 15.5 (5-19) BUN 38 H (6-20) mg/dL Creatinine 6.7 H* (0.5-0.9) mg/dL GFR Calculation 6.4 L (90-130) mL/min Glucose 235 H (65-115) mg/dL Calculated Osmolal ity 281 L (285-295) mOsm/k g Calcium 9.3 (8.5-10.5) mg/dL Phosphorus 4.2 (2.5-4.5) mg/dL Magnesium 1.4 L (1.7-2.3) mg/dL Total Bilirubin 0.3 (0.15-1.2) mg/dL AST 32 (0-32) U/L ALT 35 H (0-33) U/L Alkaline Phosphata se 93 (35-105) IU/L Troponin T Baselin e 131 H* (0-10) ng/L Total Protein 6.4 L (6.6-8.7) g/dL Albumin 3.1 L (3.5-5.2) g/dL Globulin 3.3 (1.3-4.6) g/dL TSH (0.27-4.20) uIU/ mL 01/31/20 Range/Units 20:12 WBC (4.0-10.0) 10^3/ uL RBC (4.1-5.3) 10^6/u L Hgb (11.5-15.3) g/dL Hct (37.0-47.0) % MCV (81-99) fL MCH (28.0-34.0) pg MCHC (30.0-36.0) g/dL RDW (12.1-15.1) % Plt Count (130-400) 10^3/c mm MPV (7.4-10.4) fL Neut % (Auto) % Lymph % (Auto) % [place] % (Auto) % Eos % (Auto) % Baso % (Auto) % Neut # (Auto) (1.8-7.7) 10^3/u L Lymph # (Auto) (0.8-4.8) 10^3/u L [place] # (Auto) (0.2-0.9) 10^3/u L Eos # (Auto) (0.0-0.8) 10^3/u L Baso # (Auto) (0.0-0.1) 10^3/u L Nucleated RBC % (a uto) % Nucleated RBCs # /100WBC Sodium (136-145) mmol/L Potassium (3.5-5.1) mmol/L Chloride (98-107) mmol/L Carbon Dioxide (22-29) mmol/L Anion Gap (5-19) BUN (6-20) mg/dL Creatinine (0.5-0.9) mg/dL GFR Calculation (90-130) mL/min Glucose (65-115) mg/dL Calculated Osmolal ity (285-295) mOsm/k g Calcium (8.5-10.5) mg/dL Phosphorus (2.5-4.5) mg/dL Magnesium (1.7-2.3) mg/dL Total Bilirubin (0.15-1.2) mg/dL AST (0-32) U/L ALT (0-33) U/L Alkaline Phosphata se (35-105) IU/L Troponin T Baselin e (0-10) ng/L Total Protein (6.6-8.7) g/dL Albumin (3.5-5.2) g/dL Globulin (1.3-4.6) g/dL TSH 5.42 H (0.27-4.20) uIU/ mL Discharge Plan Discharge Patient Disposition: Admitted As Inpatient Admit Provider: Daksha Burdick Condition: Good Discharge Date/Time: 01/31/20 22:15 Coding Level of Care Code ED Conditioning Room Worker for Chg Fwd Exam Comprehensive
--- NOTE | 2020-01-31 20:11 | XR_ITS ---
WS: [id number] Right shoulder, 3 views, 01/31/2020 Clinical Data: fall, pain Comparison: None. Findings: No fractures or dislocations are seen. The AC joint is normal. The adjacent right clavicle, right sca pula and ribs are normal. The soft tissues are unremarkable. There is a monitor lead on the chest wall. XR/XR shoulder RT min 2V* [id number] Impression: Negative right shoulder.
--- NOTE | 2020-01-31 20:12 | XR_ITS ---
WS: [id number] Portable AP upright chest, 01/31/2020 Clinical Data: syncope Comparison: Portable chest, 09/26/2019. Findings: No nodules, masses or effusions are seen. The heart is mildly enlarged. The pulmonary vascu larity is not increased. No pneumonia or pneumothorax is seen. The aortic arch and descending aorta s how mild tortuosity. Monitor leads on the chest wall. The patient has a poor inspiratory effort. XR/XR chest 1V portable [id number] Impression: Cardiomegaly and atherosclerosis.
[2020-01-31 20:19] LABS: Basophils % 0.6 %; Eosinophils # 0.3 10^3/uL (0.0-0.8); Eosinophils % 6.3 %; Hematocrit 31.1 % (37.0-47.0); Hemoglobin 10.2 g/dL (11.5-15.3); Lymphocytes # 1.4 10^3/uL (0.8-4.8); Lymphocytes % 25.7 %; Mean Corpuscular HGB Conc 32.8 g/dL (30.0-36.0); Mean Corpuscular Hemoglobin 32.2 pg (28.0-34.0); Mean Corpuscular Volume 98.1 fL (81-99); Mean Platelet Volume 10.9 fL (7.4-10.4); Monocytes # 0.4 10^3/uL (0.2-0.9); Monocytes % 7.4 %; Neutrophils # 3.21 10^3/uL (1.8-7.7); Neutrophils % 59.6 %; Nucleated Red Blood Cells % 0 %; Platelet Count 201 10^3/cmm (130-400); Red Blood Count 3.17 10^6/uL (4.1-5.3); Red Cell Distribution Width 13.5 % (12.1-15.1); White Blood Count 5.4 10^3/uL (4.0-10.0)
[2020-01-31] MEDS: sodium chloride 0.9% 1,000 ML 999 ML IV (20:32)
[2020-01-31 20:39] LABS: Alanine Aminotransferase 35 U/L (0-33); Albumin Level 3.1 g/dL (3.5-5.2); Alkaline Phosphatase 93 IU/L (35-105); Anion Gap 15.5 (5-19); Aspartate Amino Transferase 32 U/L (0-32); Blood Urea Nitrogen 38 mg/dL (6-20); Calcium 9.3 mg/dL (8.5-10.5); Carbon Dioxide 26 mmol/L (22-29); Chloride 95 mmol/L (98-107); Globulin 3.3 g/dL (1.3-4.6); Glomerular Filtration Rate 6.4 mL/min (90-130); Glucose 235 mg/dL (65-115); Magnesium 1.4 mg/dL (1.7-2.3); Osmolality Calculated 281 mOsm/kg (285-295); Phosphorus 4.2 mg/dL (2.5-4.5); Potassium 3.5 mmol/L (3.5-5.1); Sodium 133 mmol/L (136-145); Total Bilirubin 0.3 mg/dL (0.15-1.2); Total Protein 6.4 g/dL (6.6-8.7)
[2020-01-31 20:53] LABS: Troponin(5th) Baseline 131 ng/L (0-10)
--- NOTE | 2020-01-31 22:40 | PM.HP ---
Providers/Chief Complaint Admitting Physician: Daksha Burdick MD Primary Care Provider: Yovany Leonardo MD Chief Complaint: dizzy/syncope History of Present Illness Rizwana Herzog is a 54 year old female who carries diagnosis of end-stage renal disease, peritoneal dialysis catheter in place, diabetic with peripheral vascular disease status post right BKA currently following with wound care clinic for her left chronic leg wound( status post debridement and hyperbaric oxygen therapy) came in after one syncopal event. Patient is stating that today she was walking out of her bathroom towards her bedroom when she felt lightheaded and fell on the ground, as soon as she fell on the ground she regained consciousness, before this event she did not experience any fever, nausea, vomiting, diarrhea, fever, shortness of breath, chest pain or palpitations. Patient is stating that for last few years she has been having problems with her heart rate, maximal heart rate 130 and low was 30. Today she called her PCP who asked her to do orthostatics at home, which were positive. She came to the hospital for further evaluation. Patient is stating that her bowel movements are regular, no recent vomiting, diarrhea. Patient is stating that sometimes on exertion she would feel heaviness in her chest but would not call it chest pain. Next week she is due to see her associate professor of law at [employer] and prefers to follow-up with her associate professor of law as compared to our telemetry associate professor of law here. Diagnosis in the ER revealed sinus bradycardia, heart rate dipped down to 30s, with spontaneous improvement to 70s at the time of my evaluation, blood pressure 143, she is orthostatic positive, she has been given fluids in the ER, she is not complaining of chest pain or shortness of breath, troponin 131, potassium 3.5, magnesium 1.4 EKG did not reveal any ischemic or infarctive changes, Review of Systems Const: Reports: body aches, fatigue and malaise; Denies: fever(s), chills or change in appetite Eyes: Denies: change in vision ENMT: Denies: throat pain Card: Reports: syncope and dyspnea on exertion; Denies: chest pain Resp: Denies: dyspnea GI: Denies: abdominal pain, nausea, vomiting, diarrhea or constipation : Denies: flank pain Musc: Denies: neck pain Skin/Breast: Denies: rash Neuro: Denies: headache(s) Psych: Denies: anxiety Endo: Denies: polyuria Refugio/Lymph: Denies: easy bruising All/Imm: Denies: urticaria Medications/Allergies Home Medications Medication Instructions Recorded Confirmed Last Taken Type aspirin 81 mg PO DAILY 06/25/19 01/31/20 01/31/20 History multivitamin [Multiple Vitamins] 1 tab PO DAILY 06/30/19 01/31/20 01/31/20 History paricalcitol [Zemplar] See Rx Instructions .ROUTE .COMPLEX 06/30/19 01/31/20 01/31/20 History nitroglycerin 0.4 mg SUBLINGUAL Q5M PRN 08/01/19 01/31/20 09/05/19 History ferric citrate 210 mg iron tablet 210 mg PO TID tab 09/06/19 01/31/20 01/31/20 History atorvastatin 40 mg PO DAILY 09/26/19 01/31/20 01/31/20 History pantoprazole 40 mg tablet,delayed See Rx Instructions .ROUTE 11/28/19 01/31/20 01/31/20 Rx release .COMPLEX #30 each insulin glargine 100 unit/mL (3 50 unit SUBCUT BID #15 ml 12/11/19 01/31/20 01/31/20 Rx mL) subcutaneous pen levothyroxine 112 mcg tablet 224 mcg PO DAILY #30 tab 12/11/19 01/31/20 01/31/20 Rx duloxetine 40 mg capsule,delayed 40 mg PO DAILY #30 cap 01/01/20 01/31/20 01/31/20 Rx release sprinkle cholecalciferol (vitamin D3) 25 mcg PO DAILY 01/17/20 01/31/20 01/31/20 History [Vitamin D3] coenzyme Q10 [CoQ-10] 100 mg PO DAILY 01/17/20 01/31/20 01/31/20 History metoprolol succinate 50 mg 25 mg PO BID #60 tab 01/17/20 01/31/20 01/31/20 Rx tablet,extended release 24 hr omega 7-ofs-rhb-fish oil [Fish Oil] 1 cap PO DAILY 01/17/20 01/31/20 01/31/20 History tizanidine 4 mg capsule 4 mg PO BID PRN #60 cap 01/24/20 01/31/20 Unknown Rx brimonidine See Rx Instructions .ROUTE .COMPLEX 01/31/20 01/31/20 Unknown History ciprofloxacin HCl 500 mg PO Q12H 01/31/20 01/31/20 01/31/20 History dorzolamide-timolol See Rx Instructions .ROUTE .COMPLEX 01/31/20 01/31/20 Unknown History duloxetine [Drizalma Sprinkle] 40 mg PO DAILY 01/31/20 01/31/20 01/31/20 History latanoprost See Rx Instructions .ROUTE .COMPLEX 01/31/20 01/31/20 Unknown History prednisolone acetate See Rx Instructions .ROUTE .COMPLEX 01/31/20 01/31/20 Unknown History Allergies Allergy/AdvReac Type Severity Reaction Status Date / Time metformin [From Glucophage] Allergy Severe Unknown Verified 01/31/20 20:36 venlafaxine [From Effexor] Allergy Severe ADR-Shakine Verified 01/31/20 20:36 ss PFSH Acute PFSH: Medical History Anxiety CAD (coronary artery disease) Chronic diastolic CHF (congestive heart failure) Chronic kidney disease, stage V On peritoneal dialysis. Follows with Dr Ann. Claustrophobia Depression Diabetes Insulin-dependent ESRD (end stage renal disease) Gastroparesis GERD (gastroesophageal reflux disease) HTN (hypertension) Hyperlipidemia Hypothyroidism Partial nontraumatic amputation of left foot (~06/2019) Peripheral vascular disease TIA (transient ischemic attack) Vitamin D deficiency Surgical History History of appendectomy History of heart artery stent History of hysterectomy History of left heart catheterization History of right below knee amputation Peritoneal dialysis catheter in place S/P cholecystectomy S/P PICC central line placement Status post amputation of toe Family History Denies family history of CAD (coronary artery disease) Clotting disorder Dementia Bleeding disorder Social History Smoking and tobacco status: never smoked Alcohol intake: never Household members: spouse and family History of recent travel: No Vitals/I&O/Wt Last Vital Signs Temp 98.4 F 01/31/20 19:44 Pulse 62 01/31/20 22:15 Resp 18 01/31/20 22:15 BP 143/63 01/31/20 22:15 Pulse Ox 96 01/31/20 22:15 Weight last 48 hrs Weight 95.254 kg Physical Exam Narrative: EXAM NARRATIVE: Middle-aged female currently lying comfortable in right lateral position at the time of my evaluation current heart rate 70s, still blood pressure 140s No active chest pain or shortness of breath She looks comfortable Dried ducal mucous membrane S1, S2 no tachycardia or active signs of heart failure Distended abdomen, peritoneal dialysis catheter site without any active drainage, bowel sounds present, No neurological signs, Awake alert oriented x3 GCS 15 Healing wound left lower extremity Right leg below-knee amputation with prosthesis Lungs are clear to auscultation Positive orthostasis in the ER Data : 01/31/20 20:12 01/31/20 20:12 A&P Assessment and plan (1) Orthostatic syncope: Status: Acute (2) Bradycardia: Status: Acute (3) Frailty: Status: Acute (4) DOROTEO on CPAP: Status: Acute (5) ESRD (end stage renal disease): Status: Acute (6) Partial nontraumatic amputation of left foot: Status: Acute (7) Gastroparesis: Status: Chronic (8) Hypothyroidism: Status: Acute Qualifiers: Hypothyroidism type: acquired Qualified Code(s): E03.9 - Hypothyroidism, unspecified (9) Diabetes: Status: Acute (10) Peripheral vascular disease: Status: Acute Additional A&P Information Syncope Positive orthostasis in the ER, clinically dehydrated No chest pain, shortness of breath, denies palpitations, Her heart rate lowered down to 30s in the ER at the time evaluation it was in 70s, normal blood pressure Patient is stating history of heart rate being high in 130s, I am concerned about sick sinus syndrome, monitor her with telemetry Stop beta-chyna Check TSH Echo in the morning Judicious use of fluids End-stage renal disease peritoneal dialysis dependent: Patient prefers to manage her dialysis on her own and see her associate professor of law at [facility] I would only replete potassium with 20 mEq p.o. and magnesium 400mg p.o. twice daily Hypothyroidism: Continue current dose of levothyroxine Obstructive sleep apnea: Auto CPAP titration overnight Peripheral vascular disease: Status post balloon angioplasty, healed wound of left foot Diabetes, insulin-dependent: Sliding scale with consistent carb renal dialysis diet I would increase her fluid restriction to 1200 mL, At home she is taking about 900 mL/day Full code DVT prophylaxis Heparin Attestations Medical Necessity Statement*: Anticipating discharge in less than 48 hours currently need evaluation for orthostatic syncope and bradycardia monitoring overnight Time Spent in Patient Care: (>than 50% of time spent in counselling and/or direct pt care on unit). 40 minutes Coding Level of Care Code Acute Doorkeeper for Chg Fwd Diagnoses Orthostatic syncope I95.1 Bradycardia R00.1 Frailty R54 DOROTEO on CPAP G47.33; Z99.89 ESRD (end stage renal disease) N18.6 Partial nontraumatic amputation of left foot Z89.432 Gastroparesis K31.84 Hypothyroidism E03.9 Hypothyroidism type: acquired Diabetes E11.9 Peripheral vascular disease I73.9
--- NOTE | 2020-01-31 23:05 | PC.NURSE ---
received new admit for syncope, pt A&OX4, respirations even and unlabored on room air, VSS, right bka with prostetic, peritoneal dialysis catheter in abdomen, 20g IV to LAC SL, pt denies pain or needs at this time, clwr, continue to monitor
[2020-01-31 23:59] LABS: Thyroid Stimulating Hormone 5.42 uIU/mL (0.27-4.20)
[2020-02-01] VITALS (17 sets, daily range): BP systolic 98–141; BP diastolic 44–76; PULSE 53–65; RESP 12–21; TEMP 36.3–36.9; O2SAT 94–97
[2020-02-01] MEDS: heparin 5,000 unit/mL INJ 1 mL 5000 UNIT SUBCUT ×4 (00:19→22:53)
[2020-02-01] MEDS: sodium chloride 0.9% 1,000 ML 30 ML IV ×2 (00:19→22:53)
[2020-02-01] MEDS: tizanidine 4 mg Tablet PO ×2 (00:40→22:48)
--- NOTE | 2020-02-01 00:46 | PC.NURSE ---
Pharmacy called stating that she verified with Gennaro on iron frequency. Patient med rec states she takes it TID, however it was verified with doctor by pharmacist that he wants it ordered q48 hours.
[2020-02-01 02:26] LABS: Basophils % 0.4 %; Eosinophils # 0.3 10^3/uL (0.0-0.8); Eosinophils % 5.2 %; Hematocrit 27.5 % (37.0-47.0); Hemoglobin 9.1 g/dL (11.5-15.3); Lymphocytes # 1.6 10^3/uL (0.8-4.8); Lymphocytes % 33.3 %; Mean Corpuscular HGB Conc 33.1 g/dL (30.0-36.0); Mean Corpuscular Hemoglobin 32.4 pg (28.0-34.0); Mean Corpuscular Volume 97.9 fL (81-99); Monocytes # 0.3 10^3/uL (0.2-0.9); Monocytes % 7.1 %; Neutrophils # 2.56 10^3/uL (1.8-7.7); Neutrophils % 53.8 %; Nucleated Red Blood Cells % 0 %; Platelet Count 171 10^3/cmm (130-400); Red Blood Count 2.81 10^6/uL (4.1-5.3); Red Cell Distribution Width 13.4 % (12.1-15.1); White Blood Count 4.8 10^3/uL (4.0-10.0)
[2020-02-01 02:54] LABS: Anion Gap 14.5 (5-19); Blood Urea Nitrogen 45 mg/dL (6-20); Calcium 8.6 mg/dL (8.5-10.5); Carbon Dioxide 25 mmol/L (22-29); Chloride 99 mmol/L (98-107); Creatinine Clr Calc Pharmacy 10.9928; Glomerular Filtration Rate 6.5 mL/min (90-130); Glucose 142 mg/dL (65-115); Osmolality Calculated 280 mOsm/kg (285-295); Potassium 3.5 mmol/L (3.5-5.1); Sodium 135 mmol/L (136-145)
[2020-02-01 03:13] LABS: Troponin 5 6HR 130.6 ng/L (0-10); Troponin 5 6HR Delta -0.4 ng/L (0-12)
[2020-02-01 04:53] LABS: Glucose Point of Care 112 mg/dL (70-110)
[2020-02-01 06:30] LABS: Glucose Point of Care 109 mg/dL (70-110)
[2020-02-01] MEDS: pantoprazole DR 40 mg Tablet PO (08:04)
[2020-02-01] MEDS: atorvastatin 40 mg Tablet PO (08:04)
[2020-02-01] MEDS: insulin glargine 100 units/1 mL 50 UNIT SUBCUT ×2 (08:05→17:30)
[2020-02-01] MEDS: duloxetine 20 mg Capsule 40 MG PO (08:05)
[2020-02-01] MEDS: aspirin 81 mg Chew Tablet PO (08:05)
[2020-02-01] MEDS: levothyroxine 112 mcg Tablet 224 MCG PO (08:05)
[2020-02-01 10:45] LABS: Glucose Point of Care 146 mg/dL (70-110)
--- NOTE | 2020-02-01 11:22 | PC.CHAP ---
Pastoral Care Encounter/Spiritual Assessment Type of Contact [x] Declined geosciences faculty member visit [] Patient/Family/Request visit [] Outpatient visit [] Follow-up visit [] Physician referral [] Code/Alert [] Routine visit [] Staff referral [] Actively dying [] Patient sleeping [] Family support [] [] Out of room [] Palliative care [] [] Receiving care in room [] Pre-surgical visit [] Trauma [] Long length of stay [] ICU visit [] Other: Relational/Emotional Strength [] Patient feels connected with others/family/visitors/staff [] Distress [] Loneliness/isolation [] Abandonment Spirituality of Patient [] Person of [place]alya [] Attends Synagogue of their [place] [] Believes in Prayer [] Reads Bible or Hoahaoism materials [] There are Spiritual issues to be addressed Wind Turbine Design Engineer Interventions [x] Prayer [] Active listening [] Non-anxious presence [] Spiritual/emotional support [] Crisis/trauma care [] Spiritual counseling [] Bereavement support [] Provided bereavement packet [] Provided Bible/devotional materials [] Provided toy/stuffed animal, coloring book to patient or family member [] Provided Communion [] Anointing/[place] [] Salvation [] Completed spiritual assessment [] Other: Impact on Illness or Injury [] Angry [] Fearful [] Anxious [] Often cries [] Exhaustion [] Unable to work [] Unable to attend sabianist [] Unable to walk/stand [] Unable to read [] Unable to drive [] Unable to eat/drink [] Unable to sleep [] Unable to be with family [] Patient intubated [] Other: Summary Patient stated she was not up for a visit. Prayer was provided. Time spent with patient 2 minutes
--- NOTE | 2020-02-01 13:57 | PM.CONSULT ---
Providers/Reason For Consult Consulting Physican/Specialty*: Ashleigh Scruggs DO, telenephrology Reason for Consult*: ESRD on peritoneal dialysis Requesting Physcian: Antione Sullivan MD Attending Physician: Antione Sullivan MD Primary Care Provider: Yovany Leonardo MD History of Present Illness History of Present Illness Rizwana Herzog is a 54 year old female presenting after syncopal episode while getting off toilet. Apparently she has been orthostatic with compaints of dizziness for a couple of weeks. She denies N/V/D/fever/cloudy PD fluid. Uses cycler all 2.5% solution almost 15 liters nightly. Review of Systems Card: Denies: chest pain Resp: Denies: dyspnea Meds/Allergies Home Medications and Allergies Home Medications Medication Instructions Recorded Confirmed Last Taken Type aspirin 81 mg PO DAILY 06/25/19 01/31/20 01/31/20 History multivitamin [Multiple Vitamins] 1 tab PO DAILY 06/30/19 01/31/20 01/31/20 History paricalcitol [Zemplar] See Rx Instructions .ROUTE .COMPLEX 06/30/19 01/31/20 01/31/20 History nitroglycerin 0.4 mg SUBLINGUAL Q5M PRN 08/01/19 01/31/20 09/05/19 History ferric citrate 210 mg iron tablet 210 mg PO TID tab 09/06/19 01/31/20 01/31/20 History atorvastatin 40 mg PO DAILY 09/26/19 01/31/20 01/31/20 History pantoprazole 40 mg tablet,delayed See Rx Instructions .ROUTE 11/28/19 01/31/20 01/31/20 Rx release .COMPLEX #30 each insulin glargine 100 unit/mL (3 50 unit SUBCUT BID #15 ml 12/11/19 01/31/20 01/31/20 Rx mL) subcutaneous pen levothyroxine 112 mcg tablet 224 mcg PO DAILY #30 tab 12/11/19 01/31/20 01/31/20 Rx duloxetine 40 mg capsule,delayed 40 mg PO DAILY #30 cap 01/01/20 01/31/20 01/31/20 Rx release sprinkle cholecalciferol (vitamin D3) 25 mcg PO DAILY 01/17/20 01/31/20 01/31/20 History [Vitamin D3] coenzyme Q10 [CoQ-10] 100 mg PO DAILY 01/17/20 01/31/20 01/31/20 History metoprolol succinate 50 mg 25 mg PO BID #60 tab 01/17/20 01/31/20 01/31/20 Rx tablet,extended release 24 hr omega 0-jle-gjo-fish oil [Fish Oil] 1 cap PO DAILY 01/17/20 01/31/20 01/31/20 History tizanidine 4 mg capsule 4 mg PO BID PRN #60 cap 01/24/20 01/31/20 Unknown Rx brimonidine See Rx Instructions .ROUTE .COMPLEX 01/31/20 01/31/20 Unknown History ciprofloxacin HCl 500 mg PO Q12H 01/31/20 01/31/20 01/31/20 History dorzolamide-timolol See Rx Instructions .ROUTE .COMPLEX 01/31/20 01/31/20 Unknown History duloxetine [Drizalma Sprinkle] 40 mg PO DAILY 01/31/20 01/31/20 01/31/20 History latanoprost See Rx Instructions .ROUTE .COMPLEX 01/31/20 01/31/20 Unknown History prednisolone acetate See Rx Instructions .ROUTE .COMPLEX 01/31/20 01/31/20 Unknown History Allergies Allergy/AdvReac Type Severity Reaction Status Date / Time metformin [From Glucophage] Allergy Severe Unknown Verified 01/31/20 20:36 venlafaxine [From Effexor] Allergy Severe ADR-Shakine Verified 01/31/20 20:36 ss Current Medications Current Medications Generic Name Dose Route Start Last Admin Trade Name Freq PRN Reason Stop Dose Admin Aspirin 81 mg 02/01/20 09:00 02/01/20 08:05 Aspirin Chewable PO 81 mg DAILY JERSON Administration Atorvastatin Calcium 40 mg 02/01/20 09:00 02/01/20 08:04 Lipitor PO 40 mg DAILY JERSON Administration Duloxetine HCl 40 mg 02/01/20 09:00 02/01/20 08:05 Cymbalta PO 40 mg DAILY JERSON Administration Heparin Sodium (Beef Lung) 5,000 unit 01/31/20 23:30 02/01/20 08:05 Heparin SUBCUT 5,000 unit Q8H JERSON Administration Sodium Chloride 1,000 mls @ 30 mls/hr 01/31/20 23:30 02/01/20 00:19 Sodium Chloride 0.9% IV 30 mls/hr .Q24H JERSON Administration Insulin Aspart 0 unit 02/01/20 08:00 02/01/20 12:24 Novolog SUBCUT 4 unit WM&BEDTIME JERSON Administration Protocol Insulin Glargine 50 unit 02/01/20 09:00 02/01/20 08:05 Lantus SUBCUT 50 unit BID JERSON Administration Levothyroxine Sodium 224 mcg 02/01/20 09:00 02/01/20 08:05 Synthroid PO 224 mcg DAILY JERSON Administration Non-Formulary Medication 210 mg 01/31/20 23:30 02/01/20 00:33 Ferric Citrate [Auryxia] PO Not Given Q48H JERSON Pantoprazole Sodium 40 mg 02/01/20 09:00 02/01/20 08:04 Protonix PO 40 mg DAILY JERSON Administration Tizanidine HCl 4 mg 02/01/20 00:06 02/01/20 00:40 Zanaflex PO 4 mg BID PRN Administration muscle spasticity PFSH Acute PFSH: Medical History Anxiety CAD (coronary artery disease) Chronic diastolic CHF (congestive heart failure) Chronic kidney disease, stage V On peritoneal dialysis. Follows with Dr Ann. Claustrophobia Depression Diabetes Insulin-dependent ESRD (end stage renal disease) Gastroparesis GERD (gastroesophageal reflux disease) HTN (hypertension) Hyperlipidemia Hypothyroidism Partial nontraumatic amputation of left foot (~06/2019) Peripheral vascular disease TIA (transient ischemic attack) Vitamin D deficiency Surgical History History of appendectomy History of heart artery stent History of hysterectomy History of left heart catheterization History of right below knee amputation Peritoneal dialysis catheter in place S/P cholecystectomy S/P PICC central line placement Status post amputation of toe Family History Denies family history of CAD (coronary artery disease) Clotting disorder Dementia Bleeding disorder Social History Smoking and tobacco status: never smoked Alcohol intake: never Household members: spouse and family History of recent travel: No Vitals/I&O/Wt Last Vital Signs Temp 97.8 F 02/01/20 11:11 Pulse 65 02/01/20 11:11 Resp 15 02/01/20 11:11 BP 126/71 02/01/20 11:11 Pulse Ox 94 02/01/20 11:11 01/31/20 02/01/20 02/01/20 22:59 06:59 14:59 Intake Total 117 / 117 480 / 480 Balance 117 / 117 480 / 480 Weight last 48 hrs Weight 95.254 kg Physical Exam Const: COMMON NORMALS: no acute distress GENERAL APPEARANCE: cooperative NUTRITIONAL APPEARANCE: obese Extremity: GENERAL: No edema OTHER: right BKA bandaged Data Labs: Other Labs: Calcium 8.6, phos 4.2, Mg 1.4, albumin 3.1 Other Data: Other data: ECHO 1. This is a technically difficult study because of poor ultrasonic windows. 2. Normal left ventricular cavity size and systolic function. Left ventricular ejection fraction is estimated at 60 %. No diagnostic regional wall motion abnormality. Grade II diastoli dysfunction, moderately elevated filling pressures. 3. When compared two studies done on 02 August 2019 and 07 August 2019, there has been no significant change. CXR Findings: No nodules, masses or effusions are seen. The heart is mildly enlarged. The pulmonary vascularity is not increased. No pneumonia or pneumothorax is seen. The aortic arch and descending aorta show mild tortuosity. Monitor leads on the chest wall. The patient has a poor inspiratory effort. A&P Additional A&P Information 1. ESRD on peritoneal dialysis 2. Syncope, orthostasis, possible volume depletion v diabetic/uremic autoneuropathy 3. Bradycardia 4. Anemia 5. Hypomagnesemia, mild hypokalemia, poor nutrition Recommend: will start PD with 1.5% exchanges, 2.5 liters, 5 x daily. Procrit (last injection 3+ weeks ago). Check iron studies. Replace KCl, Mg, add protein supplements. Consult Attestations Medical Necessity Statement: per primary service Time Spent in Patient Care: Greater than 35 minutes Coding Level of Care Code Acute Renal Dietitian for Maris Braden
--- NOTE | 2020-02-01 14:40 | P.PN_ITS ---
Subjective Subjective: Interval history: Patient denies shortness of breath or chest pain this morning. Reports that she is still somewhat dizzy. Her heart rate is in the 60s with normal blood pressure during my evaluation. Reports that she has been feeling dizzy off and on for some time. Reports that every time she gets up her blood pressure drops which causes her dizziness. Reports usually if she holds several seconds her dizziness goes away. She has not been able to walk much ever since she had her left fifth toe amputated. She had right below-knee amputation as well. She denies abdominal pain or problems with bowel movement. She denies difficulty with urination. She cannot see on the left side and relates it to previous treatment in hyperbaric chamber and glaucoma. Her right eye seems okay and does not appear to have any problems with peripheral vision. She does not have any cerebellar signs. Her oqogwe-wh-uady test is normal bilaterally. She denies any mouth sores or teeth problem. Denies any skin lesions/wounds. Patient admits having poor appetite and oral intake. She does however report that she is drinking fluids okay. She lives with her . Vitals/I&O/Wt Last Vital Signs Temp 97.8 F 02/01/20 11:11 Pulse 65 02/01/20 11:11 Resp 15 02/01/20 11:11 BP 126/71 02/01/20 11:11 Pulse Ox 94 02/01/20 11:11 01/31/20 02/01/20 02/01/20 22:59 06:59 14:59 Intake Total 117 / 117 480 / 480 Balance 117 / 117 480 / 480 Weight last 48 hrs Weight 95.254 kg Physical Exam Const: COMMON NORMALS: no acute distress and patient oriented x3 Resp: COMMON NORMALS: normal respiratory effort and clear to auscultation bilaterally AUSCULTATION: clear to auscultation bilaterally Cardio: COMMON NORMALS: regular rate, regular rhythm and S2 normal heart sound present RATE: regular rate RHYTHM: regular rhythm HEART SOUNDS: S2 normal heart sound present OTHER: No left lower extremity edema GI: COMMON NORMALS: Normal to inspection, nondistended, normoactive bowel soun ds present, Soft to palpation and non-tender PALPATION: Yes Soft to palpation Neuro: COMMON NORMALS: patient oriented x3 and no focal motor deficits Data : 02/01/20 02:13 02/01/20 02:13 A&P Assessment and plan (1) Orthostatic syncope: Status: Acute (2) Bradycardia: Status: Acute (3) Frailty: Status: Acute (4) DOROTEO on CPAP: Status: Acute (5) ESRD (end stage renal disease): Status: Acute (6) Partial nontraumatic amputation of left foot: Status: Acute (7) Gastroparesis: Status: Chronic (8) Hypothyroidism: Status: Acute Qualifiers: Hypothyroidism type: acquired Qualified Code(s): E03.9 - Hypothyroidism, unspecified (9) Diabetes: Status: Acute (10) Peripheral vascular disease: Status: Acute Additional A&P Information Syncope Positive orthostasis in the ER, clinically dehydrated No chest pain, shortness of breath, denies palpitations, Her heart rate lowered down to 30s in the ER at the time evaluation it was in 70s, normal blood pressure Patient is stating history of heart rate being high in 130s, I am concerned about sick sinus syndrome, monitor her with telemetry Stop beta-chyna Check TSH Echo in the morning Judicious use of fluids End-stage renal disease peritoneal dialysis dependent: Patient prefers to manage her dialysis on her own and see her stroke program coordinator at [place] I would only replete potassium with 20 mEq p.o. and magnesium 400mg p.o. twice daily Hypothyroidism: Continue current dose of levothyroxine Obstructive sleep apnea: Auto CPAP titration overnight Peripheral vascular disease: Status post balloon angioplasty, healed wound of left foot Diabetes, insulin-dependent: Sliding scale with consistent carb renal dialysis diet I would increase her fluid restriction to 1200 mL, At home she is taking about 900 mL/day Full code DVT prophylaxis Heparin PLAN: Nephrology was consulted for peritoneal dialysis. Will request PT OT. Will send dialysate fluid for analysis. Consider decreasing metoprolol dose Will evaluate carotid arteries with ultrasound. Attestations Medical Necessity Statement*: Patient with dizziness and bradycardia requires inpatient monitoring and treatment until deemed safe for discharge. Time Spent in Patient Care: 16 - 35 minutes Coding Level of Care Code Acute Incoming Inspector for Maris Braden Diagnoses Orthostatic syncope I95.1 Bradycardia R00.1 Frailty R54 DOROTEO on CPAP G47.33; Z99.89 ESRD (end stage renal disease) N18.6 Partial nontraumatic amputation of left foot Z89.432 Gastroparesis K31.84 Hypothyroidism E03.9 Hypothyroidism type: acquired Diabetes E11.9 Peripheral vascular disease I73.9
--- NOTE | 2020-02-01 14:42 | PC.NURSE ---
Dr donovan at bedside for assessment and discussion of POC
[2020-02-01] MEDS: potassium chloride ER 10 mEq Tablet 20 MEQ PO (14:59)
--- NOTE | 2020-02-01 15:03 | USCV_ITS ---
Rizwana Herzog Age: 54 Gender: F : 1965 Exam Date: 02/01/2020 16:03 Ordering Phys: Antione Sullivan MD Technologist: Chastity Will [place] [facility] [place]: DIZZ[place] Risk Factors: Previous Vascular Surgery: Right Brachial BP: / Left Brachial BP: / Right Left Velocity (cm/s) Spectral Plaque Velocity (cm/s) Spectral Plaque Syst/Diast Broadening Syst/Diast Broadening 106.90/26.50 Prox CCA 105.60/ 24.90 105.80/26.50 Mid CCA 100.95/ 25.65 94.80/ 28.70 Distal CCA 94.80 / 18.60 108.10/33.10 Prox ICA 88.60 / 28.00 79.40/ 24.30 Mid ICA 219.20/ 66.30 125.70/44.10 Distal ICA 245.30/ 80.40 92.60 ECA 77.70 1.19 ICA/CCA 2.55 Antegrade Vertebral Bi- directiona l 40.80/ 15.40 cm/s 43.40/ 14.50 cm/s Tri Subclavian Tri CONCLUSIONS Right ICA stenosis <50%. Left ICA velocities approaching 70% stenosis in the mid left ICA. Recommend CTA neck in further evaluation. Left proximal ICA is patent. Normal antegrade Doppler flow noted in the right vertebral artery. Bidirectional flow noted in the left vertebral artery Hunter Senior MD (Electronically Signed) Final Date: 01 February 2020 16:44 S
[2020-02-01 15:27] LABS: Ferritin 931 ng/mL (15-150); Iron 106 ug/dL (37-145); Transferrin 176 mg/dL (200-360)
[2020-02-01] MEDS: prednisoLONE 1% Op Susp 5 mL Btl 1 DROP EYE-LEFT (16:27)
--- NOTE | 2020-02-01 16:28 | PC.NURSE ---
medication round delayed due to ancillary staff with patient for evaluations and testing
[2020-02-01 16:49] LABS: Add Urine Microscopic? YES; Bacteria Urine 3+; Bilirubin Urine Neg (NEGATIVE); Blood Urine 2+ (Negative); Glucose Urine UA Norm (Normal); Ketones Urine Negative (Negative); Leukocyte Esterase Urine 2+ (Negative); Mucus Urine N; Nitrate Urine Negative (Negative); Protein Urine 2+ (Negative); Specific Gravity, Urine 1.005 (1.005-1.030); Urine Appearance Cloudy (CLEAR); Urine Color Yellow (Yellow); Urobilinogen Urine Norm (Negative); WBC Urine >100 /hpf (0-5); pH Urine 6.5 (5-7)
[2020-02-01 16:50] LABS: Add Urine Culture? Yes; Other Casts Urine WBC CAST /lpf
[2020-02-01 17:08] LABS: Glucose Point of Care 101 mg/dL (70-110)
[2020-02-01] MEDS: magnesium oxide 400 mg tablet PO (17:29)
[2020-02-01] MEDS: Dianeal low Ca w/1.5% dex 2,000 mL Bag 2000 ML INTRAPERIT ×2 (17:54→22:56)
--- NOTE | 2020-02-01 19:31 | PC.NURSE ---
patient had 2500 ml out from home instillation from previous night time dwell at home
[2020-02-01 19:47] LABS: Body Fluid WBC 11 /uL; RBC, Body Fluid 0 10^3/uL (0-0)
[2020-02-01 20:34] LABS: Albumin Peritoneal Fluid 0.2 g/dL; Total Protein Peritoneal Fluid 0.3 g/dL
[2020-02-01 20:37] LABS: Apprearance, Body Fluid CLEAR (CLEAR); Color, Body Fluid PALE YELLOW (PALE YELLOW)
--- NOTE | 2020-02-01 23:19 | PC.NURSE ---
PD exchange complete. Removed 2500 ml of clear, pale yellow liquid. No foul odor detected. Instilled 2000ml of clear diasylate as ordered. Removed tubing from port and applied povidone-idodine Minicap to port all using aseptic procedure. Patient tolerated procedure well.
--- NOTE | 2020-02-01 23:20 | USCV_ITS ---
Mino Rizwana Age: 54 Gender: F : 1965 Exam Date: 02/01/2020 05:54 Ordering Phys: Daksha Burdick MD Technologist: Madiha Amado Exam Location: [facility] [place] Indication: SYNCOPE BP: 123 / 69 HR: 56 Rhythm: Sinus Technical Quality: Technically difficult study MEASUREMENTS (Male / Female) Normal Values 2D ECHO LV Diastolic Diameter PLAX 4.0 cm 4.2 - 5.9 / 3.9 - 5.3 cm LV Systolic Diameter PLAX 2.7 cm LV Chamber Size 3.2 cm IVS Diastolic Thickness 1.2 cm 0.6 - 1.0 / 0.6 - 0.9 cm IVS Systolic Thickness 1.6 cm LVPW Diastolic Thickness 1.3 cm 0.6 - 1.0 / 0.6 - 0.9 cm LVPW Systolic Thickness 1.6 cm RV Chamber Size 4.2 cm LVOT Diameter 2.1 cm LV Ejection Fraction 2D Teich 62.6 % LV Ejection Fraction MOD 2C 67.0 % LV Ejection Fraction 2C AL 69.1 % LA Diameter 4.2 cm LA Width 2.7 cm LA Height 3.7 cm RA Width 2.5 cm RA Height 3.8 cm Aorta at Sinotubular Diameter 2.8 cm M-MODE LV Diastolic Diameter MM 4.4 cm 4.2 - 5.9 / 3.9 - 5.3 cm LV Systolic Diameter MM 2.9 cm LV Ejection Fraction MM Teich 62.2 % IVS Diastolic Thickness MM 1.3 cm 0.6 - 1.0 / 0.6 - 0.9 cm IVS Systolic Thickness MM 1.9 cm LVPW Diastolic Thickness MM 1.1 cm 0.6 - 1.0 / 0.6 - 0.9 cm LVPW Systolic Thickness MM 1.6 cm RV Diastolic Diameter MM 2.6 cm Aortic Annulus Diameter 2.9 cm LA Ao Ratio MM 1.4 MV E Point Septal Separation 1.1 cm DOPPLER AV Peak Velocity 178.0 cm/s LVOT Peak Velocity 112.0 cm/s AV Area Cont Eq vti 2.2 cm squared AV Area Cont Eq pk 2.1 cm squared MV Area PHT 4.8 cm squared Mitral E to A Ratio 1.5 MV E' Velocity 4.0 cm/s Mitral E to MV E' Ratio 17.5 Mitral E to LV E' Lateral Ratio 25.8 Mitral E to LV E' Septal Ratio 13.3 TR Peak Velocity 229.0 cm/s TR Peak Gradient 21.0 mmHg TR Mean Velocity 160.6 cm/s TR Mean Gradient 11.7 mmHg TR Velocity Time Integral 61.6 cm TV Peak E Velocity 85.0 cm/s Right Atrial Pressure 3.0 mmHg Pulmonary Artery Systolic Pressu 24.0 mmHg PV Peak Velocity 85.0 cm/s RV Acceleration Time 0.1 s RV Ejection Time 0.3 s RV AcT/ET 0.3 FINDINGS Left Ventricle Normal left ventricular cavity size. Mildly increased left ventricle wall thickness with concentric remodeling of left ventricle. Normal left ventricular systolic function. Left ventricular ejection fraction is estimated at 60 %. No diagnostic regional wall motion abnormality. Grade II diastolic dysfunction, moderately elevated filling pressures. Right Ventricle Right ventricle not well visualized. Probably normal right ventricular size and systolic function. Right ventricular systolic pressure 24 mmHg. Right Atrium Right atrium not well visualized. Left Atrium Normal left atrial size. Mitral Valve possibly mildly thickened mitral valve. No mitral valve regurgitation. Aortic Valve Mildly thickened trileaflet aortic valve. No aortic valve stenosis. Tricuspid Valve Tricuspid valve not well visualized. Pulmonic Valve Pulmonic valve not well visualized. No pulmonary valve stenosis. No significant pulmonary valve regurgitation. Pericardium No pericardial effusion. Aorta Normal size aortic root and proximal ascending aorta. CONCLUSIONS 1. This is a technically difficult study because of poor ultrasonic windows. 2. Normal left ventricular cavity size and systolic function. Left ventricular ejection fraction is estimated at 60 %. No diagnostic regional wall motion abnormality. Grade II diastolic dysfunction, moderately elevated filling pressures. 3. When compared two studies done on 02 August 2019 and 07 August 2019, there has been no significant change. Soraya Ignacio MD (Electronically Signed) Final Date: 01 February 2020 10:26 Amended: 01 February 2020 10:29 C
[2020-02-02] VITALS (13 sets, daily range): BP systolic 119–134; BP diastolic 66–99; PULSE 18–78; RESP 12–20; TEMP 36.3–36.9; O2SAT 94–100
[2020-02-02 00:02] LABS: Glucose Point of Care 120 mg/dL (70-110)
--- NOTE | 2020-02-02 03:45 | PC.NURSE ---
Patient c/o dizziness and generalized ill feeling upon movement. Patient denies nausea. Noted patient to have current heart rate 50-60. Patient stated, my heart rate is not usually that low. BP 126/66. Normal Saline IV running at 30ml per hour currently. No other distress observed.
[2020-02-02] MEDS: Dianeal low Ca w/1.5% dex 2,000 mL Bag 2000 ML INTRAPERIT ×4 (05:33→20:15)
--- NOTE | 2020-02-02 05:55 | PC.NURSE ---
PD dialysis end dwell time now removing 2000ml of clear, pale yellow fluid. Instilled 2000ml of clear diasylate. Patient tolerated well. Removed bag system and applied povidone-iodine cap all using aseptic procedure. Patient tolerated well. Denies any pain or discomfort at this time. No distress observed.
--- NOTE | 2020-02-02 06:01 | PM.PN ---
Subjective Subjective: Interval history: still feels dizzy, RN reports PD fluid clear Medications: Reviewed: Yes Vitals/I&O/Wt Last Vital Signs Temp 98.3 F 02/02/20 04:01 Pulse 56 L 02/02/20 05:59 Resp 18 02/02/20 05:59 BP 126/66 02/02/20 05:59 Pulse Ox 96 02/02/20 04:09 02/01/20 02/01/20 02/02/20 14:59 22:59 06:59 Intake Total 480 / 480 677 / 1157 240 / 1397 Output Total 200 / 200 200 / 400 Balance 480 / 480 477 / 957 40 / 997 Weight last 48 hrs Weight 102.603 kg Weight 95.254 kg Physical Exam Const: COMMON NORMALS: no acute distress Resp: COMMON NORMALS: clear to auscultation bilaterally AUSCULTATION: clear to auscultation bilaterally Cardio: COMMON NORMALS: regular rate and regular rhythm RATE: regular rate RHYTHM: regular rhythm Extremity: NARRATIVE EXTREMITY EXAM: right BKA Data : 02/01/20 02:13 02/01/20 02:13 A&P Additional A&P Information 1. ESRD on peritoneal dialysis 2. Syncope, orthostasis, possible volume depletion v diabetic/uremic autoneuropathy 3. Bradycardia, cardiology seeing 4. Anemia 5. Hypomagnesemia, mild hypokalemia, poor nutrition 6. Pyuria Recommend: continue PD with 1.5% exchanges, 2.5 liters, 5 x daily. Gentamicin cream to exit site daily. Procrit (last injection 3+ weeks ago). Check iron studies. Replace KCl, Mg, add protein supplements. Follow-up urine culture Attestations Medical Necessity Statement*: per primary service Time Spent in Patient Care: Greater than 35 minutes Coding Level of Care Code Acute Ostomy Nurse for Maris Braden
[2020-02-02 06:21] LABS: Glucose Point of Care 82 mg/dL (70-110)
[2020-02-02] MEDS: heparin 5,000 unit/mL INJ 1 mL 5000 UNIT SUBCUT ×2 (08:27→16:12)
[2020-02-02] MEDS: atorvastatin 40 mg Tablet PO (08:28)
[2020-02-02] MEDS: aspirin 81 mg Chew Tablet PO (08:28)
[2020-02-02] MEDS: levothyroxine 112 mcg Tablet 224 MCG PO (08:29)
[2020-02-02] MEDS: magnesium oxide 400 mg tablet PO ×2 (08:29→17:53)
[2020-02-02] MEDS: duloxetine 20 mg Capsule 40 MG PO (08:29)
[2020-02-02] MEDS: pantoprazole DR 40 mg Tablet PO (08:29)
[2020-02-02] MEDS: PARICALCITOL 1 MCG 1 EACH PO (08:30)
[2020-02-02] MEDS: insulin glargine 100 units/1 mL 50 UNIT SUBCUT ×2 (08:32→17:51)
[2020-02-02 10:51] LABS: Glucose Point of Care 184 mg/dL (70-110)
--- NOTE | 2020-02-02 10:54 | P.PN_ITS ---
Subjective Subjective: Interval history: Patient continues to be lightheaded and dizzy. Denies shortness of breath or chest pain. Her urinalysis came back with evidence of severe urinary tract infection. She previously grew ESBL pathogen therefore she was started on Primaxin. Medications: Reviewed: Yes Vitals/I&O/Wt Last Vital Signs Temp 98.2 F 02/02/20 07:17 Pulse 67 02/02/20 09:04 Resp 13 02/02/20 07:17 BP 119/67 02/02/20 07:17 Pulse Ox 94 02/02/20 09:04 02/01/20 02/02/20 02/02/20 22:59 06:59 14:59 Intake Total 677 / 1157 240 / 1397 240 / 240 Output Total 200 / 200 200 / 400 200 / 200 Balance 477 / 957 40 / 997 40 / 40 Weight last 48 hrs Weight 102.603 kg Weight 95.254 kg Physical Exam Const: COMMON NORMALS: no acute distress and patient oriented x3 Resp: COMMON NORMALS: normal respiratory effort and clear to auscultation bilaterally AUSCULTATION: clear to auscultation bilaterally Cardio: COMMON NORMALS: regular rate, regular rhythm and S2 normal heart sound present RATE: regular rate RHYTHM: regular rhythm HEART SOUNDS: S2 normal heart sound present OTHER: No lower extremity edema GI: COMMON NORMALS: Normal to inspection, nondistended, normoactive bowel sounds present, Soft to palpation and non-tender PALPATION: Yes Soft to palpation Neuro: COMMON NORMALS: patient oriented x3 and no focal motor deficits Data : 02/01/20 02:13 02/01/20 02:13 A&P Assessment and plan (1) Orthostatic syncope: Status: Acute (2) Bradycardia: Status: Acute (3) Frailty: Status: Acute (4) DOROTEO on CPAP: Status: Acute (5) ESRD (end stage renal disease): Status: Acute (6) Partial nontraumatic amputation of left foot: Status: Acute (7) Gastroparesis: Status: Chronic (8) Hypothyroidism: Status: Acute Qualifiers: Hypothyroidism type: acquired Qualified Code(s): E03.9 - Hypothyroidism, unspecified (9) Diabetes: Status: Acute (10) Peripheral vascular disease: Status: Acute Additional A&P Information Syncope Positive orthostasis in the ER, clinically dehydrated No chest pain, shortness of breath, denies palpitations, Her heart rate lowered down to 30s in the ER at the time evaluation it was in 7 0s, normal blood pressure Patient is stating history of heart rate being high in 130s, I am concerned about sick sinus syndrome, monitor her with telemetry Stop beta-chyna Check TSH Echo in the morning Judicious use of fluids End-stage renal disease peritoneal dialysis dependent: Patient prefers to manage her dialysis on her own and see her diesel engine pipe fitter at [place] I would only replete potassium with 20 mEq p.o. and magnesium 400mg p.o. twice daily Hypothyroidism: Continue current dose of levothyroxine Obstructive sleep apnea: Auto CPAP titration overnight Peripheral vascular disease: Status post balloon angioplasty, healed wound of left foot Diabetes, insulin-dependent: Sliding scale with consistent carb renal dialysis diet I would increase her fluid restriction to 1200 mL, At home she is taking about 900 mL/day Full code DVT prophylaxis Heparin PLAN: Continue Primaxin. Awaiting culture results. Patient will likely require PICC line placement. 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
--- NOTE | 2020-02-02 11:55 | PC.CHAP ---
Pastoral Care Encounter/Spiritual Assessment Type of Contact [] Declined timber feller visit [] Patient/Family/Request visit [] Outpatient visit [] Follow-up visit [] Physician referral [] Code/Alert [] Routine visit [] Staff referral [] Actively dying [xx] Patient sleeping [] Family support [] [] Out of room [] Palliative care [] [] Receiving care in room [] Pre-surgical visit [] Trauma [] Long length of stay [] ICU visit [xx] Other: Follow up visit needed Relational/Emotional Strength [] Patient feels connected with others/family/visitors/staff [] Distress [] Loneliness/isolation [] Abandonment Spirituality of Patient [] Person of Talya [] Attends Holiness of their Talya [] Believes in Prayer [] Reads Bible or Hinduism materials [] There are Spiritual issues to be addressed Assistant Warehouse Manager Interventions [] Prayer [] Active listening [] Non-anxious presence [] Spiritual/emotional support [] Crisis/trauma care [] Spiritual counseling [] Bereavement support [] Provided bereavement packet [] Provided Bible/devotional materials [] Provided toy/stuffed animal, coloring book to patient or family member [] Provided Communion [] Anointing/[place] [] Salvation [] Completed spiritual assessment [] Other: Impact on Illness or Injury [] Angry [] Fearful [] Anxious [] Often cries [] Exhaustion [] Unable to work [] Unable to attend scientologist [] Unable to walk/stand [] Unable to read [] Unable to drive [] Unable to eat/drink [] Unable to sleep [] Unable to be with family [] Patient intubated [] Other: Summary Pt asleep at beginning of Assistant Warehouse Manager's round and still asleep at end of round. Follow up needed Time spent with patient
--- NOTE | 2020-02-02 13:37 | PC.NURSE ---
medication rounding delayed due to patient care and dialysis treatments
[2020-02-02 16:56] LABS: Glucose Point of Care 167 mg/dL (70-110)
--- NOTE | 2020-02-02 18:13 | PC.NURSE ---
patient report chest heaviness and upper shoulder pain rated 8/10 patient is in no distress how ever reports she just doesn't feel good. Dr Sullivan notified instructions given to obtain EKG and troponin series also notified Dr. Sullivan that PD schedule was off by 2 hours due to ancilary staff visits and awaiting to obtain soulutions from pharmacy as well as warm time instruction to finish dell time of 4 hours and continue
--- NOTE | 2020-02-02 18:19 | ECG_ITS ---
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 Measurements Intervals [place] Rate: 71 P: 59 CO: 196 QRS: -51 QRSD: 98 T: 5 QT: 413 QTc: 450 Interpretive Statements SINUS RHYTHM LOW QRS VOLTAGE IN PRECORDIAL LEADS [QRS DEFLECTION < 1.0 mV IN CHEST LEADS] POSSIBLE ANTERIOR MYOCARDIAL INFARCTION, PROBABLY OLD INFERIOR MYOCARDIAL INFARCTION,PROBABLY OLD Compared to ECG 01/31/2020 19:56:18 Low QRS voltage now present Myocardial infarct finding still present Electronically Signed On 02-02-2020 20:09:37 CDT by Soraya Ignacio M.D. [email or web address]
[2020-02-02 19:31] LABS: Troponin(5th) Baseline 107 ng/L (0-10)
[2020-02-02 20:14] LABS: Glucose Point of Care 266 mg/dL (70-110)
[2020-02-02 22:15] LABS: Troponin 5 2HR Delta 1.6 ABS# (0-10)
[2020-02-02] MEDS: tizanidine 4 mg Tablet PO (22:20)
[2020-02-02 22:39] LABS: Troponin 5 2HR 108.6 ng/L (0-10)
[2020-02-03] VITALS (12 sets, daily range): BP systolic 119–157; BP diastolic 61–89; PULSE 63–72; RESP 13–21; TEMP 36.6–36.9; O2SAT 93–100
[2020-02-03] MEDS: Dianeal low Ca w/1.5% dex 2,000 mL Bag 2000 ML INTRAPERIT ×2 (00:32→06:00)
[2020-02-03] MEDS: heparin 5,000 unit/mL INJ 1 mL 5000 UNIT SUBCUT ×3 (01:27→15:00)
[2020-02-03 02:05] LABS: Alanine Aminotransferase 23 U/L (0-33); Albumin Level 2.9 g/dL (3.5-5.2); Alkaline Phosphatase 72 IU/L (35-105); Anion Gap 14.4 (5-19); Aspartate Amino Transferase 16 U/L (0-32); Blood Urea Nitrogen 37 mg/dL (6-20); Calcium 8.3 mg/dL (8.5-10.5); Carbon Dioxide 25 mmol/L (22-29); Chloride 99 mmol/L (98-107); Globulin 2.2 g/dL (1.3-4.6); Glomerular Filtration Rate 7.4 mL/min (90-130); Glucose 129 mg/dL (65-115); Magnesium 1.4 mg/dL (1.7-2.3); Osmolality Calculated 279 mOsm/kg (285-295); Potassium 3.4 mmol/L (3.5-5.1); Sodium 135 mmol/L (136-145); Total Bilirubin 0.3 mg/dL (0.15-1.2); Total Protein 5.1 g/dL (6.6-8.7)
[2020-02-03 02:09] LABS: Troponin 5 6HR Delta 5.6 ng/L (0-12)
[2020-02-03 02:27] LABS: Troponin 5 6HR 112.6 ng/L (0-10)
[2020-02-03 02:30] LABS: Basophils % 0.6 %; Eosinophils # 0.3 10^3/uL (0.0-0.8); Eosinophils % 6.1 %; Hematocrit 24.3 % (37.0-47.0); Lymphocytes # 1.2 10^3/uL (0.8-4.8); Mean Corpuscular HGB Conc 32.9 g/dL (30.0-36.0); Mean Corpuscular Volume 97.2 fL (81-99); Mean Platelet Volume 11.7 fL (7.4-10.4); Monocytes # 0.3 10^3/uL (0.2-0.9); Monocytes % 6.5 %; Neutrophils # 2.88 10^3/uL (1.8-7.7); Neutrophils % 60.4 %; Nucleated Red Blood Cells % 0 %; Platelet Count 164 10^3/cmm (130-400); Red Cell Distribution Width 13.3 % (12.1-15.1); White Blood Count 4.8 10^3/uL (4.0-10.0)
[2020-02-03 04:30] LABS: Glucose Point of Care 111 mg/dL (70-110)
[2020-02-03] MEDS: HYDROcodone-acetaminophen 5-325 mg Tablet 1 TAB PO ×2 (06:36→18:21)
[2020-02-03] MEDS: ondansetron 2 mg/ML SDV 2 mL 4 MG IVP (06:36)
[2020-02-03 06:51] LABS: Glucose Point of Care 106 mg/dL (70-110)
[2020-02-03] MEDS: duloxetine 20 mg Capsule 40 MG PO (08:29)
[2020-02-03] MEDS: sennosides-docusate Tablet 1 TAB PO (08:29)
[2020-02-03] MEDS: magnesium oxide 400 mg tablet PO ×2 (08:29→18:12)
[2020-02-03] MEDS: pantoprazole DR 40 mg Tablet PO (08:29)
[2020-02-03] MEDS: atorvastatin 40 mg Tablet PO (08:30)
[2020-02-03] MEDS: levothyroxine 112 mcg Tablet 224 MCG PO (08:30)
[2020-02-03] MEDS: aspirin 81 mg Chew Tablet PO (08:30)
--- NOTE | 2020-02-03 10:23 | P.PN_ITS ---
Subjective Subjective: Interval history: no new issues PD 1.5% is not removing fluid - will change to alternating 1.5% and 2.5% Medications: Reviewed: Yes Vitals/I&O/Wt Last Vital Signs Temp 98.5 F 02/03/20 07:22 Pulse 69 02/03/20 07:47 Resp 13 02/03/20 07:22 BP 129/67 02/03/20 07:22 Pulse Ox 93 02/03/20 07:47 02/02/20 02/03/20 02/03/20 22:59 06:59 14:59 Intake Total 360 / 940 100 / 1040 360 / 360 Output Total 1350 / 1750 300 / 2050 100 / 100 Balance -990 / -810 -200 / -1010 260 / 260 Weight last 48 hrs Weight 103.238 kg Weight 102.603 kg Weight 102.603 kg Physical Exam Const: COMMON NORMALS: no acute distress GENERAL APPEARANCE: cooperative Extremity: OTHER: Right BKA, trace left pedal edema Data : 02/03/20 01:30 02/03/20 01:30 Other Labs: Mg 1.4 Micro: Microbiology 02/01/20 15:00 Urine Culture - Preliminary Urine,Clean Catch Gram Negative Rods A&P Additional A&P Information 1. ESRD on peritoneal dialysis. Not ultrafiltrating. 2. Syncope, orthostasis, possible volume depletion v diabetic/uremic autoneuropathy 3. Anemia, iron repelete, received procrit yesterday 4. Hypomagnesemia, mild hypokalemia, poor nutrition 5. UTI, GNR, on imipenem Recommend: alternate PD 1.5% and 2.5%exchanges, 2.5 liters, 5 x daily. Gentamicin cream to exit site daily. Replace KCl, Mg, add protein supplements. Follow-up urine culture Attestations Medical Necessity Statement*: per primary service Coding Level of Care Code Acute Supervisor Compressed Yeast for Maris Braden
[2020-02-03] MEDS: insulin glargine 100 units/1 mL 50 UNIT SUBCUT ×2 (10:42→18:24)
[2020-02-03] MEDS: Dianeal low Ca w/1.5% dex 2,000 mL Bag 2500 ML INTRAPERIT ×2 (10:57→19:00)
[2020-02-03] MEDS: sodium chloride 0.9% 1,000 ML 30 ML IV (11:22)
[2020-02-03] MEDS: potassium chloride ER 10 mEq Tablet 20 MEQ PO (11:22)
[2020-02-03 11:57] LABS: Glucose Point of Care 193 mg/dL (70-110)
--- NOTE | 2020-02-03 13:53 | PM.PN ---
Subjective Subjective: Interval history: Patient reports feeling better. Denies shortness of breath or chest pain. Denies lightheadedness. Medications: Reviewed: Yes Vitals/I&O/Wt Last Vital Signs Temp 98.3 F 02/03/20 12:00 Pulse 67 02/03/20 12:00 Resp 21 H 02/03/20 12:00 BP 134/83 02/03/20 12:00 Pulse Ox 99 02/03/20 12:00 02/02/20 02/03/20 02/03/20 22:59 06:59 14:59 Intake Total 360 / 940 200 / 1140 1600 / 1600 Output Total 1350 / 1750 300 / 2050 1999 / 1999 Balance -990 / -810 -100 / -910 -400 / -400 Weight last 48 hrs Weight 103.238 kg Weight 102.603 kg Weight 102.603 kg Physical Exam Const: COMMON NORMALS: no acute distress and patient oriented x3 Resp: COMMON NORMALS: normal respiratory effort and clear to auscultation bilaterally AUSCULTATION: clear to auscultation bilaterally Cardio: COMMON NORMALS: regular rate, regular rhythm and S2 normal heart sound present RATE: regular rate RHYTHM: regular rhythm HEART SOUNDS: S2 normal heart sound present OTHER: No lower extremity edema GI: COMMON NORMALS: Normal to inspection, nondistended, normoactive bowel sounds present, Soft to palpation and non-tender PALPATION: Yes Soft to palpation Neuro: COMMON NORMALS: patient oriented x3 and no focal motor deficits Data : 02/03/20 01:30 02/03/20 01:30 Micro: Microbiology 02/01/20 15:00 Urine Culture - Preliminary Urine,Clean Catch Gram Negative Rods A&P Assessment and plan (1) Orthostatic syncope: Status: Acute (2) Bradycardia: Status: Acute (3) Frailty: Status: Acute (4) DOROTEO on CPAP: Status: Acute (5) ESRD (end stage renal disease): Status: Acute (6) Partial nontraumatic amputation of left foot: Status: Acute (7) Gastroparesis: Status: Chronic (8) Hypothyroidism: Status: Acute Qualifiers: Hypothyroidism type: acquired Qualified Code(s): E03.9 - Hypothyroidism, unspecified (9) Diabetes: Status: Acute (10) Peripheral vascular disease: Status: Acute (11) Complicated UTI (urinary tract infection): Status: Acute Additional A&P Information Syncope Positive orthostasis in the ER, clinically dehydrated No chest pain, shortness of breath, denies palpitations, Her heart rate lowered down to 30s in the ER at the time evaluation it was in 70s, normal blood pressure Patient is stating history of heart rate being high in 130s, I am concerned about sick sinus syndrome, monitor her with telemetry Stop beta-chyna Check TSH Echo in the morning Judicious use of fluids End-stage renal disease peritoneal dialysis dependent: Patient prefers to manage her dialysis on her own and see her online communications manager at [place] I would only replete potassium with 20 mEq p.o. and magnesium 400mg p.o. twice daily Hypothyroidism: Continue current dose of levothyroxine Obstructive sleep apnea: Auto CPAP titration overnight Peripheral vascular disease: Status post balloon angioplasty, healed wound of left foot Diabetes, insulin-dependent: Sliding scale with consistent carb renal dialysis diet I would increase her fluid restriction to 1200 mL, At home she is taking about 900 mL/day Full code DVT prophylaxis Heparin PLAN: Continue Primaxin. Awaiting culture results. Patient will likely require PICC line placement depending on cultures. Attestations Medical Necessity Statement*: Patient with complicated UTI requires close inpatient monitoring and treatment for appropriated antibiotic transition. Time Spent in Patient Care: 16 - 35 minutes Coding Level of Care Code Acute Wage And Hour Investigator for Maris Braden Diagnoses Orthostatic syncope I95.1 Bradycardia R00.1 Frailty R54 DOROTEO on CPAP G47.33; Z99.89 ESRD (end stage renal disease) N18.6 Partial nontraumatic amputation of left foot Z89.432 Gastroparesis K31.84 Hypothyroidism E03.9 Hypothyroidism type: acquired Diabetes E11.9 Peripheral vascular disease I73.9 Complicated UTI (urinary tract infection) N39.0
[2020-02-03] MEDS: Dianeal low Ca w/2.5% dex 2,000 mL Bag 2000 ML INTRAPERIT (15:00)
[2020-02-03 16:59] LABS: Glucose Point of Care 215 mg/dL (70-110)
[2020-02-03 20:35] LABS: Glucose Point of Care 233 mg/dL (70-110)
--- NOTE | 2020-02-03 21:48 | PC.NURSE ---
Patient A&O X 4 pleasant and cooperative with staff. Patient PD site clear and intact. Patient has had some episodes of emesis and dry heaves. Zofran administered. Report called to Kori GORDON on Medsurg 2 west. Patient transferred with all belongings and New PD bag of 2.5%. Patient assisted and transported by hospital staff via wheel chair. Personal medications take with patient. No skin issues at time of transfer.
[2020-02-04] VITALS (9 sets, daily range): BP systolic 124–157; BP diastolic 65–88; PULSE 64–72; RESP 18–24; TEMP 36.6–36.8; O2SAT 93–96
[2020-02-04] MEDS: Dianeal low Ca w/2.5% dex 2,000 mL Bag 2000 ML INTRAPERIT ×3 (00:12→18:06)
[2020-02-04] MEDS: HYDROcodone-acetaminophen 5-325 mg Tablet 1 TAB PO (01:26)
[2020-02-04] MEDS: ondansetron 2 mg/ML SDV 2 mL 4 MG IVP ×2 (04:28→13:18)
[2020-02-04] MEDS: Dianeal low Ca w/1.5% dex 2,000 mL Bag 2000 ML INTRAPERIT ×3 (04:29→23:21)
[2020-02-04 05:14] LABS: Basophils % 0.6 %; Eosinophils # 0.3 10^3/uL (0.0-0.8); Hematocrit 27.9 % (37.0-47.0); Hemoglobin 9.2 g/dL (11.5-15.3); Lymphocytes # 1.5 10^3/uL (0.8-4.8); Lymphocytes % 28.2 %; Mean Corpuscular Hemoglobin 32.1 pg (28.0-34.0); Mean Corpuscular Volume 97.2 fL (81-99); Monocytes # 0.4 10^3/uL (0.2-0.9); Monocytes % 6.9 %; Neutrophils # 3.16 10^3/uL (1.8-7.7); Neutrophils % 58.6 %; Nucleated Red Blood Cells % 0 %; Platelet Count 187 10^3/cmm (130-400); Red Blood Count 2.87 10^6/uL (4.1-5.3); Red Cell Distribution Width 13.3 % (12.1-15.1); White Blood Count 5.4 10^3/uL (4.0-10.0)
[2020-02-04 05:44] LABS: Alanine Aminotransferase 26 U/L (0-33); Albumin Level 3.1 g/dL (3.5-5.2); Alkaline Phosphatase 78 IU/L (35-105); Anion Gap 11.4 (5-19); Aspartate Amino Transferase 23 U/L (0-32); Blood Urea Nitrogen 28 mg/dL (6-20); Calcium 8.7 mg/dL (8.5-10.5); Carbon Dioxide 28 mmol/L (22-29); Chloride 100 mmol/L (98-107); Globulin 2.7 g/dL (1.3-4.6); Glucose 77 mg/dL (65-115); Magnesium 1.4 mg/dL (1.7-2.3); Osmolality Calculated 278 mOsm/kg (285-295); Potassium 3.4 mmol/L (3.5-5.1); Sodium 136 mmol/L (136-145); Total Bilirubin 0.3 mg/dL (0.15-1.2); Total Protein 5.8 g/dL (6.6-8.7)
[2020-02-04 05:46] LABS: Ferritin 920 ng/mL (15-150); Iron 99 ug/dL (37-145); Percent Saturation 57.5 % (20-50); Total Iron Binding Capacity 172 mcg/dl; Unsaturated Iron Binding 73 ug/dL (112-347)
[2020-02-04 05:54] LABS: INR 1.01 (0.8-1.2)
[2020-02-04 05:57] LABS: Folate Level 4.7 ng/mL (4.8-37.3); Vitamin B12 746 pg/mL (232-1245)
[2020-02-04 06:57] LABS: Glucose Point of Care 70 mg/dL (70-110)
--- NOTE | 2020-02-04 07:08 | PM.PN ---
Subjective Subjective: Interval history: feels weak. no willingham, poor appetite. no sob or cp or itching. Medications: Reviewed: Yes Medication Review Details: Current Medications Hydrocodone Bitart/Acetaminophen ([place] 5-325 Mg) 1 tab PO Q4H PRN PRN Reason: MODERATE PAIN Last Admin: 02/04/20 01:26 Dose: 1 tab Documented by: Aspirin (Aspirin Chewable) 81 mg PO DAILY [facility] Last Admin: 02/03/20 08:30 Dose: 81 mg Documented by: Atorvastatin Calcium (Lipitor) 40 mg PO DAILY [facility] Last Admin: 02/03/20 08:30 Dose: 40 mg Documented by: Dextrose (D50w) 25 ml IVP ONCE PRN; Protocol PRN Reason: hypoglycemia protocol Dextrose (D50w) 50 ml IVP PRN PRN; Protocol PRN Reason: hypoglycemia protocol Duloxetine HCl (Cymbalta) 40 mg PO DAILY [facility] Last Admin: 02/03/20 08:29 Dose: 40 mg Documented by: Gentamicin Sulfate (Gentamicin Cream) 1 applic TOPICAL DAILY [facility] Last Admin: 02/03/20 08:37 Dose: 1 applic Documented by: Glucagon (Glucagen) 1 mg IM ONCE PRN; Protocol PRN Reason: Adult Acute Hypoglycemia Prot. Imipenem/Cilastatin Sodium 250 (mg/ Sodium Chloride) 100 mls @ 200 mls/hr IV Q12H [facility]; Protocol Last Admin: 02/03/20 23:21 Dose: 200 mls/hr Documented by: Insulin Aspart (Novolog) 0 unit SUBCUT WM&BEDTIME [facility]; Protocol Last Admin: 02/03/20 20:51 Dose: 8 unit Documented by: Insulin Glargine (Lantus) 50 unit SUBCUT BID [facility] Last Admin: 02/03/20 18:24 Dose: 50 unit Documented by: Levothyroxine Sodium (Synthroid) 224 mcg PO DAILY [facility] Last Admin: 02/03/20 08:30 Dose: 224 mcg Documented by: Magnesium Oxide (Magox) 400 mg PO BID [facility] Last Admin: 02/03/20 18:12 Dose: 400 mg Documented by: Nitroglycerin (Nitrostat) 0.4 mg SUBLINGUAL Q5M PRN PRN Reason: Chest Pain Non-Formulary Medication ( Brimonidine 0.2% Op Soln 5 Ml Btl 0 each EYE-LEFT BID [facility] Last Admin: 02/03/20 18:26 Dose: 1 each Documented by: Non-Formulary (Medication (Aurxyia)) 0 each PO TIDWM [facility] Last Admin: 02/03/20 18:12 Dose: 1 each Documented by: Non-Formulary Medication (Paricalcitol [Zemplar]) 0 mcg PO DAILY [facility] Last Admin: 02/03/20 08:36 Dose: 1 mcg Documented by: Non-Formulary Medication ( Latanoprost 0.005% Op Soln 2.5 Ml Btl) 0 each EYE-LEFT BEDTIME [facility] Last Admin: 02/03/20 20:52 Dose: 1 each Documented by: Non-Formulary Medication ( Dorzolamide/Timolol Op Soln 10 Ml Btl 0 each EYE-LEFT BID [facility] Last Admin: 02/03/20 18:27 Dose: 1 each Documented by: Ondansetron HCl (Zofran) 4 mg IVP Q6H PRN PRN Reason: NAUSEA AND VOMITING Last Admin: 02/04/20 04:28 Dose: 4 mg Documented by: Pantoprazole Sodium (Protonix) 40 mg PO DAILY [facility] Last Admin: 02/03/20 08:29 Dose: 40 mg Documented by: Peritoneal Dialysis Solution (Dianeal Low Ca W/1.5% Dex) 2,000 ml INTRAPERIT Q8H [facility] Last Admin: 02/04/20 04:29 Dose: 2,000 ml Documented by: Peritoneal Dialysis Solution (Dianeal Low Ca W/2.5% Dex) 2,000 ml INTRAPERIT Q8H [facility] Last Admin: 02/04/20 00:12 Dose: 2,000 ml Documented by: Potassium Chloride (Klor-Con 10) 20 meq PO DAILY [facility] Last Admin: 02/03/20 11:22 Dose: 20 meq Documented by: Senna/Docusate Sodium (Senna-S) 1 tab PO DAILY [facility] Last Admin: 02/03/20 08:29 Dose: 1 tab Documented by: Tizanidine HCl (Zanaflex) 4 mg PO BID PRN PRN Reason: muscle spasticity Last Admin: 02/02/20 22:20 Dose: 4 mg Documented by: Vitals/I&O/Wt Last Vital Signs Temp 97.9 F 02/04/20 04:00 Pulse 71 02/04/20 04:00 Resp 24 H 02/04/20 04:00 BP 124/74 02/04/20 04:00 Pulse Ox 94 02/04/20 04:00 02/03/20 02/04/20 02/04/20 22:59 06:59 14:59 Intake Total 480 / 2180 Output Total 2300 / 4300 500 / 4800 Balance -1820 / -2120 -500 / -2620 Weight last 48 hrs Weight 103.238 kg Weight 102.603 kg Physical Exam Narrative: EXAM NARRATIVE: exam performed by RN- telemedicine visit comfortable in bed, NARD vss heent- nc/at, eomi, anicteric neck- supple no jvp lungs clear b/l heart irreg abd soft, nt, nd, +Tenkoff catheter ext mild left ankle edema neuro- a,a, o x 3 Data : 02/04/20 04:58 02/04/20 04:58 Micro: Microbiology 02/01/20 15:00 Urine Culture - Preliminary Urine,Clean Catch Gram Negative Rods A&P Additional A&P Information 1. ESRD on peritoneal dialysis. pt appears euvolemic to dry- 5 exchnages of CAPD can alternate 1.5% and 2.5% glu w/ 2 l fills 2. Syncope, orthostasis, possible volume depletion 3. Anemia, iron repelete, received procrit 02/02/20 4. electrolytes- replace k, magneseium, monitor ca, phos 5. UTI, GNR, on imipenem- f/u ur cx sensitivities- try to change to po 6. + trop as per medicine 7. hypoalbuminemia Recommend: alternate PD 1.5% and 2.5%exchanges, 2.5 liters, 5 x daily. Gentamicin cream to exit site daily. Attestations Medical Necessity Statement*: per hospitalist Time Spent in Patient Care: 16 - 35 minutes Coding Level of Care Code Acute Candy Supervisor for Maris Braden
--- NOTE | 2020-02-04 08:13 | PC.NURSE ---
Patient resting in bed with eyes closed, easily awakens to voice, alert and oriented, discussed plan of care, verbalized understanding.
--- NOTE | 2020-02-04 08:45 | PC.SOCIAL ---
IMM Page 2 of IMM explained to patient. Initialed, dated, and timed and placed in chart. Copy provided to patient.
[2020-02-04] MEDS: potassium chloride ER 10 mEq Tablet 20 MEQ PO ×2 (09:32→09:44)
[2020-02-04] MEDS: duloxetine 20 mg Capsule 40 MG PO (09:32)
[2020-02-04] MEDS: atorvastatin 40 mg Tablet PO (09:32)
[2020-02-04] MEDS: pantoprazole DR 40 mg Tablet PO (09:32)
[2020-02-04] MEDS: magnesium oxide 400 mg tablet PO ×2 (09:32→17:22)
[2020-02-04] MEDS: levothyroxine 112 mcg Tablet 224 MCG PO (09:32)
[2020-02-04] MEDS: sennosides-docusate Tablet 1 TAB PO (09:34)
[2020-02-04] MEDS: aspirin 81 mg Chew Tablet PO (09:34)
[2020-02-04 11:17] LABS: Glucose Point of Care 163 mg/dL (70-110)
[2020-02-04] MEDS: magnesium sulfate premix 2 GM/50 ML PIGGYBACK IV (12:53)
--- NOTE | 2020-02-04 14:15 | PC.NURSE ---
Physical therapy in room with patient. No distress noted.
--- NOTE | 2020-02-04 14:47 | P.PN_ITS ---
Subjective Subjective: Interval history: Patient reports that lightheadedness and dizziness slightly improved. Denies shortness of breath or chest pain. Her urine is growing gram-negative rods. Awaiting identification and susceptibility. Vitals/I&O/Wt Last Vital Signs Temp 98.0 F 02/04/20 11:07 Pulse 71 02/04/20 11:07 Resp 18 02/04/20 11:07 BP 134/68 02/04/20 11:07 Pulse Ox 93 02/04/20 11:07 02/03/20 02/04/20 02/04/20 22:59 06:59 14:59 Intake Total 480 / 2180 100 / 2280 240 / 240 Output Total 2300 / 4300 500 / 4800 500 / 500 Balance -1820 / -2120 -400 / -2520 -260 / -260 Weight last 48 hrs Weight 99.836 kg Weight 103.238 kg Weight 102.603 kg Physical Exam Const: COMMON NORMALS: no acute distress and patient oriented x3 Resp: COMMON NORMALS: normal respiratory effort and clear to auscultation bilaterally AUSCULTATION: clear to auscultation bilaterally Cardio: COMMON NORMALS: regular rate, regular rhythm and S2 normal heart sound present RATE: regular rate RHYTHM: regular rhythm HEART SOUNDS: S2 normal heart sound present OTHER: No lower extremity edema GI: COMMON NORMALS: Normal to inspection, nondistended, normoactive bowel sounds present, Soft to palpation and non-tender PALPATION: Yes Soft to palpation Neuro: COMMON NORMALS: patient oriented x3 and no focal motor deficits Data : 02/04/20 04:58 02/04/20 04:58 Micro: Microbiology 02/01/20 15:00 Urine Culture - Preliminary Urine,Clean Catch Gram Negative Rods A&P Assessment and plan (1) Orthostatic syncope: Status: Acute (2) Bradycardia: Status: Acute (3) Frailty: Status: Acute (4) DOROTEO on CPAP: Status: Acute (5) ESRD (end stage renal disease): Status: Acute (6) Partial nontraumatic amputation of left foot: Status: Acute (7) Gastroparesis: Status: Chronic (8) Hypothyroidism: Status: Acute Qualifiers: Hypothyroidism type: acquired Qualified Code(s): E03.9 - Hypothyroidism, unspecified (9) Diabetes: Status: Acute (10) Peripheral vascular disease: Status: Acute (11) Complicated UTI (urinary tract infection): Status: Acute Additional A&P Information Syncope Positive orthostasis in the ER, clinically dehydrated No chest pain, shortness of breath, denies palpitations, Her heart rate lowered down to 30s in the ER at the time evaluation it was in 70s, normal blood pressure Patient is stating history of heart rate being high in 130s, I am concerned about sick sinus syndrome, monitor her with telemetry Stop beta-chyna Check TSH Echo in the morning Judicious use of fluids End-stage renal disease peritoneal dialysis dependent: Patient prefers to manage her dialysis on her own and see her director corporate sales at [place] I would only replete potassium with 20 mEq p.o. and magnesium 400mg p.o. twice daily Hypothyroidism: Continue current dose of levothyroxine Obstructive sleep apnea: Auto CPAP titration overnight Peripheral vascular disease: Status post balloon angioplasty, healed wound of left foot Diabetes, insulin-dependent: Sliding scale with consistent carb renal dialysis diet I would increase her fluid restriction to 1200 mL, At home she is taking about 900 mL/day Full code DVT prophylaxis Heparin PLAN: Continue Primaxin. Awaiting culture results. Patient will likely require PICC line placement depending on cultures if IV antibiotic will be necessary. Given patient's repeated UTIs recently longer course 10 to 14 days would probably be n ecessary. Attestations Medical Necessity Statement*: Patient with UTI requires close inpatient monitoring and treatment until culture results are back for appropriate antibiotic transition. Time Spent in Patient Care: less than 15 minutes Coding Level of Care Code Acute Form Setter [employer] Forms for g Fwd Diagnoses Orthostatic syncope I95.1 Bradycardia R00.1 Frailty R54 DOROTEO on CPAP G47.33; Z99.89 ESRD (end stage renal disease) N18.6 Partial nontraumatic amputation of left foot Z89.432 Gastroparesis K31.84 Hypothyroidism E03.9 Hypothyroidism type: acquired Diabetes E11.9 Peripheral vascular disease I73.9 Complicated UTI (urinary tract infection) N39.0
[2020-02-04] MEDS: tizanidine 4 mg Tablet PO (14:49)
[2020-02-04 16:40] LABS: Glucose Point of Care 130 mg/dL (70-110)
[2020-02-04] MEDS: insulin glargine 100 units/1 mL 50 UNIT SUBCUT (18:06)
[2020-02-04 21:09] LABS: Glucose Point of Care 167 mg/dL (70-110)
[2020-02-05] VITALS (9 sets, daily range): BP systolic 111–173; BP diastolic 70–96; PULSE 69–85; RESP 16–18; TEMP 36.8–37; O2SAT 93–95
[2020-02-05] MEDS: HYDROcodone-acetaminophen 5-325 mg Tablet 1 TAB PO ×2 (03:26→21:58)
[2020-02-05 05:28] LABS: Basophils % 0.4 %; Eosinophils # 0.2 10^3/uL (0.0-0.8); Eosinophils % 3.9 %; Hematocrit 26.8 % (37.0-47.0); Hemoglobin 8.8 g/dL (11.5-15.3); Lymphocytes # 1.2 10^3/uL (0.8-4.8); Lymphocytes % 21.6 %; Mean Corpuscular HGB Conc 32.8 g/dL (30.0-36.0); Mean Corpuscular Hemoglobin 33.2 pg (28.0-34.0); Mean Corpuscular Volume 101.1 fL (81-99); Mean Platelet Volume 11.8 fL (7.4-10.4); Monocytes # 0.3 10^3/uL (0.2-0.9); Monocytes % 6.2 %; Neutrophils # 3.58 10^3/uL (1.8-7.7); Neutrophils % 67.3 %; Nucleated Red Blood Cells % 0 %; Platelet Count 161 10^3/cmm (130-400); Red Blood Count 2.65 10^6/uL (4.1-5.3); Red Cell Distribution Width 13.6 % (12.1-15.1); White Blood Count 5.3 10^3/uL (4.0-10.0)
[2020-02-05] MEDS: Dianeal low Ca w/2.5% dex 2,000 mL Bag 2000 ML INTRAPERIT (05:30)
[2020-02-05 05:56] LABS: Alanine Aminotransferase 26 U/L (0-33); Albumin Level 2.8 g/dL (3.5-5.2); Alkaline Phosphatase 76 IU/L (35-105); Blood Urea Nitrogen 25 mg/dL (6-20); Carbon Dioxide 25 mmol/L (22-29); Chloride 101 mmol/L (98-107); Globulin 3.1 g/dL (1.3-4.6); Glomerular Filtration Rate 9.7 mL/min (90-130); Glucose 89 mg/dL (65-115); Magnesium 2.1 mg/dL (1.7-2.3); Osmolality Calculated 278 mOsm/kg (285-295); Sodium 136 mmol/L (136-145); Total Bilirubin 0.3 mg/dL (0.15-1.2); Total Protein 5.9 g/dL (6.6-8.7)
[2020-02-05 06:00] LABS: Phosphorus 3.3 mg/dL (2.5-4.5)
[2020-02-05 06:01] LABS: Anion Gap 13.6 (5-19); Aspartate Amino Transferase 30 U/L (0-32); Potassium 3.6 mmol/L (3.5-5.1)
[2020-02-05 06:46] LABS: Slide Review Slide Review Perform
[2020-02-05 06:51] LABS: Glucose Point of Care 122 mg/dL (70-110)
--- NOTE | 2020-02-05 08:07 | P.PN_ITS ---
Subjective Subjective: Interval history: states she feels well. however, per nurses, she remains orthostatic. no n/v/f/c/willingham/d/sob Medications: Reviewed: Yes Medication Review Details: Current Medications Hydrocodone Bitart/Acetaminophen ([place] 5-325 Mg) 1 tab PO Q4H PRN PRN Reason: MODERATE PAIN Last Admin: 02/05/20 03:26 Dose: 1 tab Documented by: Aspirin (Aspirin Chewable) 81 mg PO DAILY [facility] Last Admin: 02/04/20 09:34 Dose: 81 mg Documented by: Atorvastatin Calcium (Lipitor) 40 mg PO DAILY [facility] Last Admin: 02/04/20 09:32 Dose: 40 mg Documented by: Dextrose (D50w) 25 ml IVP ONCE PRN; Protocol PRN Reason: hypoglycemia protocol Dextrose (D50w) 50 ml IVP PRN PRN; Protocol PRN Reason: hypoglycemia protocol Duloxetine HCl (Cymbalta) 40 mg PO DAILY [facility] Last Admin: 02/04/20 09:32 Dose: 40 mg Documented by: Gentamicin Sulfate (Gentamicin Cream) 1 applic TOPICAL DAILY [facility] Last Admin: 02/04/20 09:33 Dose: 1 applic Documented by: Glucagon (Glucagen) 1 mg IM ONCE PRN; Protocol PRN Reason: Adult Acute Hypoglycemia Prot. Imipenem/Cilastatin Sodium 250 (mg/ Sodium Chloride) 100 mls @ 200 mls/hr IV Q12H [facility]; Protocol Last Admin: 02/04/20 23:20 Dose: 200 mls/hr Documented by: Insulin Aspart (Novolog) 0 unit SUBCUT WM&BEDTIME [facility]; Protocol Last Admin: 02/05/20 07:01 Dose: Not Given Documented by: Insulin Glargine (Lantus) 50 unit SUBCUT BID [facility] Last Admin: 02/04/20 18:06 Dose: 50 unit Documented by: Levothyroxine Sodium (Synthroid) 224 mcg PO DAILY [facility] Last Admin: 02/04/20 09:32 Dose: 224 mcg Documented by: Magnesium Oxide (Magox) 400 mg PO BID [facility] Last Admin: 02/04/20 17:22 Dose: 400 mg Documented by: Nitroglycerin (Nitrostat) 0.4 mg SUBLINGUAL Q5M PRN PRN Reason: Chest Pain Non-Formulary Medication ( Brimonidine 0.2% Op Soln 5 Ml Btl 0 each EYE-LEFT BID [facility] Last Admin: 02/04/20 17:23 Dose: 1 each Documented by: Non-Formulary (Medication (Aurxyia)) 0 each PO TIDWM [facility] Last Admin: 02/04/20 17:22 Dose: 1 each Documented by: Non-Formulary Medication (Paricalcitol [Zemplar]) 0 mcg PO DAILY [facility] Last Admin: 02/04/20 09:38 Dose: 1 mcg Documented by: Non-Formulary Medication ( Latanoprost 0.005% Op Soln 2.5 Ml Btl) 0 each EYE- LEFT BEDTIME [facility] Last Admin: 02/04/20 21:28 Dose: 1 each Documented by: Non-Formulary Medication ( Dorzolamide/Timolol Op Soln 10 Ml Btl 0 each EYE- LEFT BID [facility] Last Admin: 02/04/20 17:23 Dose: 1 each Documented by: Ondansetron HCl (Zofran) 4 mg IVP Q6H PRN PRN Reason: NAUSEA AND VOMITING Last Admin: 02/04/20 13:18 Dose: 4 mg Documented by: Pantoprazole Sodium (Protonix) 40 mg PO DAILY [facility] Last Admin: 02/04/20 09:32 Dose: 40 mg Documented by: Peritoneal Dialysis Solution (Dianeal Low Ca W/1.5% Dex) 2,000 ml INTRAPERIT TID [facility] Last Admin: 02/04/20 23:21 Dose: 2,000 ml Documented by: Peritoneal Dialysis Solution (Dianeal Low Ca W/2.5% Dex) 2,000 ml INTRAPERIT BID [facility] Last Admin: 02/05/20 05:30 Dose: 2,000 ml Documented by: Potassium Chloride (Klor-Con 10) 20 meq PO DAILY [facility] Last Admin: 02/04/20 09:44 Dose: 20 meq Documented by: Senna/Docusate Sodium (Senna-S) 1 tab PO DAILY [facility] Last Admin: 02/04/20 09:34 Dose: 1 tab Documented by: Tizanidine HCl (Zanaflex) 4 mg PO BID PRN PRN Reason: muscle spasticity Last Admin: 02/04/20 14:49 Dose: 4 mg Documented by: Vitals/I&O/Wt Last Vital Signs Temp 98.2 F 02/05/20 04:00 Pulse 82 02/05/20 04:00 Resp 17 02/05/20 04:00 BP 124/78 02/05/20 04:00 Pulse Ox 95 02/05/20 04:00 02/04/20 02/05/20 02/05/20 22:59 06:59 14:59 Intake Total 442 / 682 Output Total 225 / 726 100 / 100 Balance 441 / 181 -225 / -44 -100 / -100 Weight last 48 hrs Weight 99.79 kg Weight 97.114 kg Weight 99.836 kg Physical Exam Narrative: EXAM NARRATIVE: exam performed by RN- telemedicine visit comfortable in bed, NARD vss heent- nc/at, eomi, anicteric neck- supple no jvp lungs clear b/l heart irreg abd soft, nt, nd, +Tenkoff catheter ecchymosis on lower abd ext mild left ankle edema - decreased neuro- a,a, o x 3 Data : 02/05/20 04:49 02/05/20 04:49 Micro: Microbiology 02/01/20 15:00 Urine Culture - Preliminary Urine,Clean Catch Gram Negative Rods A&P Additional A&P Information 1. ESRD on peritoneal dialysis. pt appears euvolemic to dry- 5 exchnages of CAPD - dec edema, and remains orthostatic- will only use 1.5% glu 2 l fills- 4 exchanges a day 2. Syncope, orthostasis, possible volume depletion- place eb stockings. -may benefit from midodrine or florinef 3. Anemia, iron replete, received procrit 02/02/20 4. electrolytes- replace k, magneseium, monitor ca, phos 5. UTI, GNR, on imipenem- f/u ur cx sensitivities- try to change to po- ensure imipenem is dosed for CAP/ ESRD -per medicine desire 10- 14 day course 6. + trop as per medicine 7. hypoalbuminemia Recommend: alternate PD 1.5% gluc, 2liters, 4 x daily. Gentamicin cream to exit site daily. lower phos binders Attestations Medical Necessity Statement*: uti abx per medicine orthostatic hypotension Time Spent in Patient Care: 16 - 35 minutes Coding Level of Care Code Acute Graduate Fellow for g Sampson
--- NOTE | 2020-02-05 08:10 | PC.NURSE ---
Patient alert and oriented, assisted to bedside commode, voided 100mL, assisted back to side of bed, discussed plan of care, including to complete orthostatic vitals TID today, verbalized understanding and denies further questions or concerns.
[2020-02-05] MEDS: insulin glargine 100 units/1 mL 50 UNIT SUBCUT (08:39)
[2020-02-05] MEDS: aspirin 81 mg Chew Tablet PO (08:41)
[2020-02-05] MEDS: pantoprazole DR 40 mg Tablet PO (08:41)
[2020-02-05] MEDS: duloxetine 20 mg Capsule 40 MG PO (08:41)
[2020-02-05] MEDS: levothyroxine 112 mcg Tablet 224 MCG PO (08:41)
[2020-02-05] MEDS: sennosides-docusate Tablet 1 TAB PO (08:42)
[2020-02-05] MEDS: atorvastatin 40 mg Tablet PO (08:42)
[2020-02-05] MEDS: magnesium oxide 400 mg tablet PO ×2 (08:42→16:54)
[2020-02-05] MEDS: potassium chloride ER 10 mEq Tablet 20 MEQ PO (08:42)
--- NOTE | 2020-02-05 08:51 | PC.NURSE ---
notified Dr Luciano patient has critical urine culture. ESBL Klebsiella
--- NOTE | 2020-02-05 08:55 | PC.NURSE ---
Physical therapy in room with patient, no distress noted.
[2020-02-05 10:26] LABS: Cortisol Random 9.13 ug/mL (2.47-19.5)
[2020-02-05 10:27] LABS: Procalcitonin 0.24 ng/mL (0-0.5)
[2020-02-05 10:50] LABS: D Dimer 1.52 ug/mIFEU (0-0.59)
[2020-02-05 10:52] LABS: Free T4 Free Thyroxine 1.37 ng/dL (0.82-1.77)
[2020-02-05] MEDS: Dianeal low Ca w/1.5% dex 2,000 mL Bag 2000 ML INTRAPERIT ×4 (11:13→23:30)
[2020-02-05 11:32] LABS: Glucose Point of Care 151 mg/dL (70-110)
[2020-02-05] MEDS: ondansetron 2 mg/ML SDV 2 mL 4 MG IVP (16:57)
[2020-02-05 17:00] LABS: Glucose Point of Care 96 mg/dL (70-110)
--- NOTE | 2020-02-05 17:05 | P.PN_ITS ---
Subjective Subjective: Interval history: Patient reports that lightheadedness and dizziness slightly improved. Denies shortness of breath or chest pain. Her urine is growing gram-negative rods. Patient continues to remain orthostatic though. Medications: Reviewed: Yes Vitals/I&O/Wt Last Vital Signs Temp 98.5 F 02/05/20 14:26 Pulse 69 02/05/20 14:26 Resp 16 02/05/20 14:26 BP 173/87 02/05/20 16:03 Pulse Ox 93 02/05/20 12:00 02/05/20 02/05/20 02/05/20 06:59 14:59 22:59 Intake Total 100 / 782 100 / 100 Output Total 225 / 726 100 / 100 200 / 300 Balance -125 / 56 0 / 0 -200 / -200 Weight last 48 hrs Weight 98.883 kg Weight 99.79 kg Weight 97.114 kg Weight 99.836 kg Physical Exam Const: COMMON NORMALS: no acute distress and patient oriented x3 Resp: COMMON NORMALS: normal respiratory effort and clear to auscultation bilaterally AUSCULTATION: clear to auscultation bilaterally Cardio: COMMON NORMALS: regular rate, regular rhythm and S2 normal heart sound present RATE: regular rate RHYTHM: regular rhythm HEART SOUNDS: S2 normal heart sound present OTHER: No lower extremity edema GI: COMMON NORMALS: Normal to inspection, nondistended, normoactive bowel sounds present, Soft to palpation and non-tender PALPATION: Yes Soft to palpation Neuro: COMMON NORMALS: patient oriented x3 and no focal motor deficits Data : 02/05/20 04:49 02/06/20 05:20 Micro: Microbiology 02/05/20 10:26 Blood Culture - Preliminary Blood SPECIMEN COLLECTED 02/05/20 10:20 Blood Culture - Preliminary Blood SPECIMEN COLLECTED 02/01/20 15:00 Urine Culture - Final Urine,Clean Catch Klebsiella pneumonia esbl A&P Assessment and plan (1) Orthostatic syncope: Status: Acute (2) Bradycardia: Status: Acute (3) ESRD (end stage renal disease): Status: Acute (4) Complicated UTI (urinary tract infection): Status: Acute (5) ESBL (extended spectrum beta-lactamase) producing bacteria infection: Status: Acute (6) Partial nontraumatic amputation of left foot: Status: Acute (7) Gastroparesis: Status: Chronic (8) Hypothyroidism: Status: Acute Qualifiers: Hypothyroidism type: acquired Qualified Code(s): E03.9 - Hypothyroidism, unspecified (9) Diabetes: Status: Acute (10) Peripheral vascular disease: Status: Acute (11) DOROTEO on CPAP: Status: Acute (12) Frailty: Status: Acute Additional A&P Information Syncope Positive orthostasis in the ER, clinically dehydrated. Telemetry has remained stable. Continue to hold off on antihypertensives. Continue to check orthostatics every shift daily. Check procalcitonin, random cortisol levels, TSH. We will discuss with nephrology to see if we need to change dialysis schedule. If that does not improve orthostasis patient would most likely require Midrin or Florinef. We will try to hold off because otherwise patient's blood pressure on the higher side. Compression stockings. UTI: Urine culture growing ESBL. Blood cultures have remained negative. Today is day 4/5 of her imipenem. 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 Recommendations appreciated. Hypothyroidism: Continue current dose of levothyroxine Obstructive sleep apnea: Auto CPAP titration overnight Peripheral vascular disease: Status post balloon angioplasty, healed wound of left foot Diabetes, insulin-dependent: Sliding scale with consistent carb renal dialysis diet I would increase her fluid restriction to 1200 mL, At home she is taking about 900 mL/day Full code DVT prophylaxis Heparin Attestations Medical Necessity Statement*: Orthostatic syncope, ESBL UTI, end-stage renal disease on peritoneal dialysis Time Spent in Patient Care: 16 - 35 minutes Coding Level of Care Code Acute Yarn Winder for Maris Braden Diagnoses Orthostatic syncope I95.1 Bradycardia R00.1 ESRD (end stage renal disease) N18.6 Complicated UTI (urinary tract infection) N39.0 ESBL (extended spectrum beta-lactamase) producing bacteria infection A49.9; Z16.12 Partial nontraumatic amputation of left foot Z89.432 Gastroparesis K31.84 Hypothyroidism E03.9 Hypothyroidism type: acquired Diabetes E11.9 Peripheral vascular disease I73.9 DOROTEO on CPAP G47.33; Z99.89 Frailty R54
[2020-02-05 21:28] LABS: Glucose Point of Care 147 mg/dL (70-110)
[2020-02-06] MEDS: ondansetron 2 mg/ML SDV 2 mL 4 MG IVP ×3 (01:09→17:51)
--- NOTE | 2020-02-06 01:21 | PC.NURSE ---
pt experienced episode of n/v about 1 hour after PD instill. pt stated she got up to use BSC and got back to the bed laid down and had a quick wave of nausea that almost immediately resulted in her vomitting. She had just had a bottle of ensure, vanilla, and that was the contents of the emesis. Approx 50ml. Spoke with the patient after she had zofran to try and determine cause of vomiting, she stated she has never experienced this after an instill. Vitals were also WNL. We deduced possible reason was her orthostatic hypotention and recently consuming the ensure. At this time patient is stable with no continued feelings of nausea.
[2020-02-06 04:00] VITALS: BP 153/78; BP 161/87; RESP 18
[2020-02-06] MEDS: Dianeal low Ca w/1.5% dex 2,000 mL Bag 2000 ML INTRAPERIT ×2 (04:45→17:52)
[2020-02-06] MEDS: HYDROcodone-acetaminophen 5-325 mg Tablet 1 TAB PO (05:06)
[2020-02-06 06:11] LABS: Alanine Aminotransferase 22 U/L (0-33); Albumin Level 2.7 g/dL (3.5-5.2); Alkaline Phosphatase 83 IU/L (35-105); Anion Gap 11.5 (5-19); Aspartate Amino Transferase 30 U/L (0-32); Blood Urea Nitrogen 18 mg/dL (6-20); Calcium 9.1 mg/dL (8.5-10.5); Carbon Dioxide 28 mmol/L (22-29); Chloride 99 mmol/L (98-107); Globulin 2.9 g/dL (1.3-4.6); Glomerular Filtration Rate 9.4 mL/min (90-130); Glucose 126 mg/dL (65-115); Osmolality Calculated 278 mOsm/kg (285-295); Potassium 3.5 mmol/L (3.5-5.1); Sodium 135 mmol/L (136-145); Total Bilirubin 0.3 mg/dL (0.15-1.2); Total Protein 5.6 g/dL (6.6-8.7)
[2020-02-06 06:49] LABS: Glucose Point of Care 123 mg/dL (70-110)
--- NOTE | 2020-02-06 09:28 | P.PN_ITS ---
Subjective Subjective: Interval history: feels better. less lightheaded. no n/v/f/c/willingham/d Medications: Reviewed: Yes Medication Review Details: Current Medications Hydrocodone Bitart/Acetaminophen ([place] 5-325 Mg) 1 tab PO Q4H PRN PRN Reason: MODERATE PAIN Last Admin: 02/06/20 05:06 Dose: 1 tab Documented by: Aspirin (Aspirin Chewable) 81 mg PO DAILY [facility] Last Admin: 02/05/20 08:41 Dose: 81 mg Documented by: Atorvastatin Calcium (Lipitor) 40 mg PO DAILY [facility] Last Admin: 02/05/20 08:42 Dose: 40 mg Documented by: Dextrose (D50w) 25 ml IVP ONCE PRN; Protocol PRN Reason: hypoglycemia protocol Dextrose (D50w) 50 ml IVP PRN PRN; Protocol PRN Reason: hypoglycemia protocol Duloxetine HCl (Cymbalta) 40 mg PO DAILY [facility] Last Admin: 02/05/20 08:41 Dose: 40 mg Documented by: Gentamicin Sulfate (Gentamicin Cream) 1 applic TOPICAL DAILY [facility] Last Admin: 02/05/20 08:40 Dose: 1 applic Documented by: Glucagon (Glucagen) 1 mg IM ONCE PRN; Protocol PRN Reason: Adult Acute Hypoglycemia Prot. Imipenem/Cilastatin Sodium 250 (mg/ Sodium Chloride) 100 mls @ 200 mls/hr IV Q12H [facility]; Protocol Last Admin: 02/05/20 22:00 Dose: 200 mls/hr Documented by: Insulin Aspart (Novolog) 0 unit SUBCUT WM&BEDTIME [facility]; Protocol Last Admin: 02/05/20 21:52 Dose: Not Given Documented by: Insulin Glargine (Lantus) 50 unit SUBCUT BID [facility] Last Admin: 02/05/20 16:55 Dose: Not Given Documented by: Levothyroxine Sodium (Synthroid) 224 mcg PO DAILY [facility] Last Admin: 02/05/20 08:41 Dose: 224 mcg Documented by: Magnesium Oxide (Magox) 400 mg PO BID [facility] Last Admin: 02/05/20 16:54 Dose: 400 mg Documented by: Nitroglycerin (Nitrostat) 0.4 mg SUBLINGUAL Q5M PRN PRN Reason: Chest Pain Non-Formulary Medication ( Brimonidine 0.2% Op Soln 5 Ml Btl 0 each EYE-LEFT BID [facility] Last Admin: 02/05/20 16:55 Dose: 1 each Documented by: Non-Formulary (Medication (Aurxyia)) 0 each PO TIDWM [facility] Last Admin: 02/05/20 16:54 Dose: 1 each Documented by: Non-Formulary Medication (Paricalcitol [Zemplar]) 0 mcg PO DAILY [facility] Last Admin: 02/05/20 08:41 Dose: 1 mcg Documented by: Non-Formulary Medication ( Latanoprost 0.005% Op Soln 2.5 Ml Btl) 0 each EYE- LEFT BEDTIME [facility] Last Admin: 02/05/20 21:59 Dose: 1 each Documented by: Non-Formulary Medication ( Dorzolamide/Timolol Op Soln 10 Ml Btl 0 each EYE- LEFT BID [facility] Last Admin: 02/05/20 16:55 Dose: 1 each Documented by: Ondansetron HCl (Zofran) 4 mg IVP Q6H PRN PRN Reason: NAUSEA AND VOMITING Last Admin: 02/06/20 01:09 Dose: 4 mg Documented by: Pantoprazole Sodium (Protonix) 40 mg PO DAILY [facility] Last Admin: 02/05/20 08:41 Dose: 40 mg Documented by: Peritoneal Dialysis Solution (Dianeal Low Ca W/1.5% Dex) 2,000 ml INTRAPERIT Q6H [facility] Last Admin: 02/06/20 04:45 Dose: 2,000 ml Documented by: Potassium Chloride (Klor-Con 10) 20 meq PO DAILY [facility] Last Admin: 02/05/20 08:42 Dose: 20 meq Documented by: Senna/Docusate Sodium (Senna-S) 1 tab PO DAILY [facility] Last Admin: 02/05/20 08:42 Dose: 1 tab Documented by: Tizanidine HCl (Zanaflex) 4 mg PO BID PRN PRN Reason: muscle spasticity Last Admin: 02/04/20 14:49 Dose: 4 mg Documented by: Vitals/I&O/Wt Last Vital Signs Temp 98.5 F 02/05/20 14:26 Pulse 72 02/05/20 22:00 Resp 18 02/06/20 04:00 BP 161/87 02/06/20 04:00 Pulse Ox 93 02/05/20 12:00 02/05/20 02/06/20 02/06/20 22:59 06:59 14:59 Intake Total 240 / 440 240 / 240 Output Total 200 / 300 150 / 450 Balance 40 / 140 -150 / -10 240 / 240 Weight last 48 hrs Weight 98.883 kg Weight 99.79 kg Weight 97.114 kg Weight 99.836 kg Physical Exam Narrative: EXAM NARRATIVE: exam performed by RN- telemedicine visit comfortable in bed, NARD vs noted- bp high. however, she drops w/ change in position heent- nc/at, eomi, anicteric neck- supple no jvp lungs clear b/l heart irreg abd soft, nt, nd, +Tenkoff catheter ecchymosis on lower abd ext mild left ankle edema - decreased neuro- a,a, o x 3 Data : 02/05/20 04:49 02/06/20 05:20 Micro: Microbiology 02/05/20 10:26 Blood Culture - Preliminary Blood SPECIMEN COLLECTED 02/05/20 10:20 Blood Culture - Preliminary Blood SPECIMEN COLLECTED 02/01/20 15:00 Urine Culture - Final Urine,Clean Catch Klebsiella pneumonia esbl A&P Additional A&P Information 1. ESRD on peritoneal dialysis. pt appears better. as bp up- will cont CAPD- 5 exchnages of CAPD - alt 1.5% and 2.5% glu, 2 l fills-5 exchanges a day 2. Syncope, orthostasis, possible volume depletion- place eb stockings. -may benefit from midodrine or florinef 3. Anemia, iron replete, received procrit 02/02/20 4. electrolytes- replace k, monitor magnesium, ca, phos 5. UTI, GNR, on imipenem- f/u ur cx sensitivities- try to change to po- ensure imipenem is dosed for CAP/ ESRD -per medicine desire 10- 14 day course 6. + trop as per medicine 7. hypoalbuminemia Recommend: alternate PD 1.5% and 2.5% gluc, 2liters, 5 x daily. Gentamicin cream to exit site daily. 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
--- NOTE | 2020-02-06 09:29 | PM.PN ---
Subjective Subjective: Interval history: Patient reports that lightheadedness and dizziness slightly improved. Denies shortness of breath or chest pain. Her urine is growing gram-negative rods. Awaiting identification and susceptibility. Vitals/I&O/Wt Last Vital Signs Temp 98.5 F 02/05/20 14:26 Pulse 72 02/05/20 22:00 Resp 18 02/06/20 04:00 BP 161/87 02/06/20 04:00 Pulse Ox 93 02/05/20 12:00 02/05/20 02/06/20 02/06/20 22:59 06:59 14:59 Intake Total 240 / 440 240 / 240 Output Total 200 / 300 150 / 450 Balance 40 / 140 -150 / -10 240 / 240 Weight last 48 hrs Weight 98.883 kg Weight 99.79 kg Weight 97.114 kg Weight 99.836 kg Physical Exam Narrative: EXAM NARRATIVE: General: No acute distress, AO x3, mildly dehydrated HEENT: PERRLA, pupils bilaterally equal and reactive Chest: Normal vesicular breath sounds, no added sounds, equal good air entry bilaterally CVS: S1-S2 regular, no murmurs, no tachycardia, no gallops, no rubs Abdomen: Soft, mild generalized tenderness, no organomegaly, bowel sounds present Neuro: No focal deficits, no facial deformity, AO x3, power 5/5 in all limbs Extremities: Right leg amputation, left leg SCDs present Data : 02/05/20 04:49 02/06/20 05:20 Micro: Microbiology 02/05/20 10:26 Blood Culture - Preliminary Blood SPECIMEN COLLECTED 02/05/20 10:20 Blood Culture - Preliminary Blood SPECIMEN COLLECTED 02/01/20 15:00 Urine Culture - Final Urine,Clean Catch Klebsiella pneumonia esbl A&P Assessment and plan (1) Orthostatic syncope: Status: Acute (2) Bradycardia: Status: Acute (3) Frailty: Status: Acute (4) DOROTEO on CPAP: Status: Acute (5) ESRD (end stage renal disease): Status: Acute (6) Partial nontraumatic amputation of left foot: Status: Acute (7) Gastroparesis: Status: Chronic (8) Hypothyroidism: Status: Acute Qualifiers: Hypothyroidism type: acquired Qualified Code(s): E03.9 - Hypothyroidism, unspecified (9) Diabetes: Status: Acute (10) Peripheral vascular disease: Status: Acute (11) Complicated UTI (urinary tract infection): Status: Acute (12) ESBL (extended spectrum beta-lactamase) producing bacteria infection: Status: Acute Additional A&P Information Syncope Orthostatics becoming better. Still positive in the afternoon. Symptomatically she is doing better. Results of random cortisol, TSH, procalcitonin appreciated. Most probably patient requires a different dialysis schedule at home. We will discuss with nephrology to see if we need to change dialysis schedule. If that does not improve orthostasis patient would most likely require Midrin or Florinef. We will try to hold off because otherwise patient's blood pressure on the higher side. Compression stockings. UTI: Urine culture growing ESBL. Blood cultures have remained negative. Today last dose of imipenem. Day 10/09. Nausea/constipation: Continue with bowel regimen. We will add MiraLAX. CT abdomen to rule out SBO. Will send for fluid analysis to rule out PD peritonitis though highly unlikely. 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 Recommendations appreciated. Hypothyroidism: Continue current dose of levothyroxine Obstructive sleep apnea: Auto CPAP titration overnight Peripheral vascular disease: Status post balloon angioplasty, healed wound of left foot Diabetes, insulin-dependent: Sliding scale with consistent carb renal dialysis diet Increase fluid restriction to 1200 to 1500 cc. 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
[2020-02-06 10:00] VITALS: BP 116/75; BP 148/74; BP 155/84; PULSE 69; PULSE 70; PULSE 77
[2020-02-06] MEDS: insulin glargine 100 units/1 mL 50 UNIT SUBCUT ×2 (10:02→17:51)
[2020-02-06] MEDS: duloxetine 20 mg Capsule 40 MG PO (10:03)
[2020-02-06] MEDS: atorvastatin 40 mg Tablet PO (10:03)
[2020-02-06] MEDS: aspirin 81 mg Chew Tablet PO (10:03)
[2020-02-06] MEDS: levothyroxine 112 mcg Tablet 224 MCG PO (10:03)
[2020-02-06] MEDS: magnesium oxide 400 mg tablet PO ×2 (10:03→17:51)
[2020-02-06] MEDS: potassium chloride ER 10 mEq Tablet 20 MEQ PO (10:03)
[2020-02-06] MEDS: sennosides-docusate Tablet 1 TAB PO (10:03)
--- NOTE | 2020-02-06 10:29 | PC.NURSE ---
patient denies pain but reports nausea this morning after breakfast, PRN zofran given, see MAR for further details.
[2020-02-06 10:40] LABS: Glucose Point of Care 142 mg/dL (70-110)
[2020-02-06] MEDS: pantoprazole DR 40 mg Tablet PO (11:18)
[2020-02-06] MEDS: polyethylene glycol 3350 Pkt 17 gm PO (12:50)
[2020-02-06] MEDS: Dianeal low Ca w/2.5% dex 2,000 mL Bag 2000 ML INTRAPERIT ×2 (14:10→22:00)
--- NOTE | 2020-02-06 15:52 | PC.SOCIAL ---
*IMM* Update Patient received the updated IMM.
[2020-02-06 16:00] VITALS: BP 145/87; PULSE 76
[2020-02-06 16:57] LABS: Glucose Point of Care 136 mg/dL (70-110)
--- NOTE | 2020-02-06 17:37 | CTR_ITS ---
PROCEDURE INFORMATION: Exam: CT Abdomen And Pelvis Without Contrast Exam date and time: 02/06/2020 5:43 PM Age: 54 years old Clinical indication: Nausea; Prior surgery; Surgery type: Gb, appy, peritoneal dialysis cath; Additional info: Sbo TECHNIQUE: Imaging protocol: Computed tomography of the abdomen and pelvis without contrast. Radiation optimization: All CT scans at this facility use at least one of these dose optimization techniques: automated exposure control; mA and/or kV adjustment per patient size (includes targeted exams where dose is matched to clinical indication); or iterative reconstruction. COMPARISON: CT abdomen pelvis wo con [id number] 06/25/2019 4:35 PM RADIATION DOSE METRICS: Total DLP (mGy-cm): 1386.09 FINDINGS: Tubes, catheters and devices: There is peritoneal dialysis catheter tubing entering the left abdominal wall with the tip coiled in the midline abdomen. No kinking or disruption of the tubing is identified. Lungs: Nonspecific bibasilar opacity right greater than left is present, consistent with atelectasis, edema, or pneumonia. Pleural space: There is a trace right pleural effusion. Heart: There is a trace pericardial effusion. The heart is enlarged. Mediastinal space: A small hiatal hernia is present. Liver: Unremarkable.No mass. Gallbladder and bile ducts: There has been a cholecystectomy. There is no common bile duct dilation. Pancreas: Normal. No ductal dilation. Spleen: The spleen is normal. An accessory splenule is present. Adrenals: Normal. No mass. Kidneys and ureters: Normal. No hydronephrosis. Stomach and bowel: There is no evidence of intestinal perforation or obstruction. There is abundant colonic stool. No impaction. Appendix: There has been an appendectomy. Intraperitoneal space: There is free intraperitoneal air. There is a moderate amount of free fluid in the abdomen and pelvis compatible with the presence of a peritoneal dialysis catheter. Vasculature: Unremarkable.No abdominal aortic aneurysm. Lymph nodes: Unremarkable.No enlarged lymph nodes. Bladder: There is air in the urinary bladder that may reflect recent instrumentation or cystitis. There is nonspecific bladder wall thickening. This may be related to incomplete distention. Reproductive: There has been a hysterectomy. Bones/joints: Unremarkable. No acute fracture. Soft tissues: There is an umbilical hernia containing fat, fluid and air. There is mild induration of the subcutaneous fat of the lower abdominal wall that may reflect anasarca or mild cellulitis. There is no fluid collection or abscess. CT/CT abdomen pelvis wo con [id number] IMPRESSION: 1. Nonspecific bibasilar opacity right greater than left is present, consistent with atelectasis, edema, or pneumonia. 2. There is a moderate amount of free free intraperitoneal air and fluid in the abdomen and pelvis compatible with the presence of a peritoneal dialysis catheter. No abscess. The catheter has an unremarkable appearance. 3. There is air in the urinary bladder that may reflect recent instrumentation or cystitis. 4. Nonspecific bowel gas. No ileus or obstruction. No findings of colitis or diverticulitis. 5. Increased edema of the subcutaneous fat lower abdominal wall may reflect anasarca or mild cellulitis without fluid collection. Radiation Dose CTDIVOL = (mGy): DLP = 1386.09 (mGy-cm)
--- NOTE | 2020-02-06 18:20 | PC.NURSE ---
off unit to CT
[2020-02-06 18:32] LABS: Body Fluid Polynuclear #Cells 0.001 10^3/uL; Body Fluid WBC 3 /uL; Monocytes # Body Fluid 0.002 10^3/uL; RBC, Body Fluid 0 10^3/uL (0-0)
[2020-02-06 18:35] LABS: Color, Body Fluid COLORLESS (PALE YELLOW)
[2020-02-06 18:36] LABS: Apprearance, Body Fluid CLEAR (CLEAR)
[2020-02-06 19:22] LABS: LDH Body Fluid 10 U/L
[2020-02-06 20:28] LABS: Glucose Point of Care 163 mg/dL (70-110)
[2020-02-06 22:00] VITALS: BP 143/75; BP 150/79
[2020-02-06 22:45] VITALS: PULSE 84; RESP 15; O2SAT 98
[2020-02-06 23:00] VITALS: BP 153/85; PULSE 70; RESP 16; TEMP 36.9
[2020-02-07] VITALS (7 sets, daily range): BP systolic 124–153; BP diastolic 65–85; PULSE 70–79; RESP 14–17; TEMP 36.9; O2SAT 97–98
[2020-02-07] MEDS: HYDROcodone-acetaminophen 5-325 mg Tablet 1 TAB PO (03:13)
[2020-02-07] MEDS: Dianeal low Ca w/1.5% dex 2,000 mL Bag 2000 ML INTRAPERIT (03:30)
[2020-02-07 05:40] LABS: Basophils # 0.1 10^3/uL (0.0-0.1); Basophils % 0.8 %; Eosinophils # 0.2 10^3/uL (0.0-0.8); Eosinophils % 3.1 %; Hematocrit 31.5 % (37.0-47.0); Hemoglobin 9.9 g/dL (11.5-15.3); Lymphocytes # 1.1 10^3/uL (0.8-4.8); Lymphocytes % 18.1 %; Mean Corpuscular HGB Conc 31.4 g/dL (30.0-36.0); Mean Corpuscular Volume 101.9 fL (81-99); Mean Platelet Volume 11.1 fL (7.4-10.4); Monocytes # 0.6 10^3/uL (0.2-0.9); Monocytes % 9.5 %; Neutrophils # 4.18 10^3/uL (1.8-7.7); Neutrophils % 68.2 %; Nucleated Red Blood Cells % 0 %; Platelet Count 241 10^3/cmm (130-400); Red Blood Count 3.09 10^6/uL (4.1-5.3); Red Cell Distribution Width 13.8 % (12.1-15.1); White Blood Count 6.1 10^3/uL (4.0-10.0)
[2020-02-07 06:02] LABS: Alanine Aminotransferase 21 U/L (0-33); Albumin Level 2.8 g/dL (3.5-5.2); Alkaline Phosphatase 82 IU/L (35-105); Aspartate Amino Transferase 31 U/L (0-32); Blood Urea Nitrogen 18 mg/dL (6-20); Carbon Dioxide 25 mmol/L (22-29); Chloride 99 mmol/L (98-107); Globulin 3.1 g/dL (1.3-4.6); Glomerular Filtration Rate 11.3 mL/min (90-130); Glucose 66 mg/dL (65-115); Magnesium 2.1 mg/dL (1.7-2.3); Osmolality Calculated 277 mOsm/kg (285-295); Phosphorus 3.3 mg/dL (2.5-4.5); Sodium 136 mmol/L (136-145); Total Bilirubin 0.4 mg/dL (0.15-1.2); Total Protein 5.9 g/dL (6.6-8.7)
[2020-02-07 06:04] LABS: Anion Gap 15.3 (5-19); Potassium 3.3 mmol/L (3.5-5.1)
[2020-02-07 06:12] LABS: Slide Review Slide Review Perform
[2020-02-07 07:00] LABS: Glucose Point of Care 65 mg/dL (70-110)
--- NOTE | 2020-02-07 07:34 | PM.PN ---
Subjective Subjective: Interval history: feels better. no n/v/f/cp/willingham/d Medications: Reviewed: Yes Medication Review Details: Current Medications Hydrocodone Bitart/Acetaminophen ([place] 5-325 Mg) 1 tab PO Q4H PRN PRN Reason: MODERATE PAIN Last Admin: 02/07/20 03:13 Dose: 1 tab Documented by: Aspirin (Aspirin Chewable) 81 mg PO DAILY [facility] Last Admin: 02/06/20 10:03 Dose: 81 mg Documented by: Atorvastatin Calcium (Lipitor) 40 mg PO DAILY [facility] Last Admin: 02/06/20 10:03 Dose: 40 mg Documented by: Dextrose (D50w) 25 ml IVP ONCE PRN; Protocol PRN Reason: hypoglycemia protocol Dextrose (D50w) 50 ml IVP PRN PRN; Protocol PRN Reason: hypoglycemia protocol Duloxetine HCl (Cymbalta) 40 mg PO DAILY [facility] Last Admin: 02/06/20 10:03 Dose: 40 mg Documented by: Gentamicin Sulfate (Gentamicin Cream) 1 applic TOPICAL DAILY [facility] Last Admin: 02/06/20 10:01 Dose: 1 applic Documented by: Glucagon (Glucagen) 1 mg IM ONCE PRN; Protocol PRN Reason: Adult Acute Hypoglycemia Prot. Imipenem/Cilastatin Sodium 250 (mg/ Sodium Chloride) 100 mls @ 200 mls/hr IV Q12H [facility]; Protocol Last Admin: 02/06/20 22:43 Dose: 200 mls/hr Documented by: Insulin Aspart (Novolog) 0 unit SUBCUT WM&BEDTIME [facility]; Protocol Last Admin: 02/06/20 20:36 Dose: 4 unit Documented by: Insulin Glargine (Lantus) 50 unit SUBCUT BID [facility] Last Admin: 02/06/20 17:51 Dose: 50 unit Documented by: Levothyroxine Sodium (Synthroid) 224 mcg PO DAILY [facility] Last Admin: 02/06/20 10:03 Dose: 224 mcg Documented by: Magnesium Oxide (Magox) 400 mg PO BID [facility] Last Admin: 02/06/20 17:51 Dose: 400 mg Documented by: Nitroglycerin (Nitrostat) 0.4 mg SUBLINGUAL Q5M PRN PRN Reason: Chest Pain Non-Formulary Medication ( Brimonidine 0.2% Op Soln 5 Ml Btl 0 each EYE-LEFT BID [facility] Last Admin: 02/06/20 17:52 Dose: 1 each Documented by: Non-Formulary (Medication (Aurxyia)) 0 each PO TIDWM [facility] Last Admin: 02/06/20 17:52 Dose: 1 each Documented by: Non-Formulary Medication (Paricalcitol [Zemplar]) 0 mcg PO DAILY [facility] Last Admin: 02/06/20 10:04 Dose: 1 mcg Documented by: Non-Formulary Medication ( Latanoprost 0.005% Op Soln 2.5 Ml Btl) 0 each EYE-LEFT BEDTIME [facility] Last Admin: 02/06/20 20:37 Dose: 1 each Documented by: Non-Formulary Medication ( Dorzolamide/Timolol Op Soln 10 Ml Btl 0 each EYE-LEFT BID [facility] Last Admin: 02/06/20 17:52 Dose: 1 each Documented by: Ondansetron HCl (Zofran) 4 mg IVP Q6H PRN PRN Reason: NAUSEA AND VOMITING Last Admin: 02/06/20 17:51 Dose: 4 mg Documented by: Pantoprazole Sodium (Protonix) 40 mg PO DAILY [facility] Last Admin: 02/06/20 11:18 Dose: 40 mg Documented by: Peritoneal Dialysis Solution (Dianeal Low Ca W/1.5% Dex) 2,000 ml INTRAPERIT TID [facility] Last Admin: 02/07/20 03:30 Dose: 2,000 ml Documented by: Peritoneal Dialysis Solution (Dianeal Low Ca W/2.5% Dex) 2,000 ml INTRAPERIT BID [facility] Last Admin: 02/06/20 22:00 Dose: 2,000 ml Documented by: Potassium Chloride (Klor-Con 10) 20 meq PO DAILY [facility] Last Admin: 02/06/20 10:03 Dose: 20 meq Documented by: Senna/Docusate Sodium (Senna-S) 1 tab PO DAILY [facility] Last Admin: 02/06/20 10:03 Dose: 1 tab Documented by: Tizanidine HCl (Zanaflex) 4 mg PO BID PRN PRN Reason: muscle spasticity Last Admin: 02/04/20 14:49 Dose: 4 mg Documented by: Vitals/I&O/Wt Last Vital Signs Temp 98.5 F 02/06/20 23:00 Pulse 72 02/07/20 04:30 Resp 16 02/06/20 23:00 BP 153/85 02/07/20 03:51 Pulse Ox 98 02/07/20 04:30 02/06/20 02/07/20 02/07/20 22:59 06:59 14:59 Intake Total 117 / 575 300 / 875 Output Total 100 / 100 Balance 17 / 475 300 / 775 Weight last 48 hrs Weight 98.883 kg Physical Exam Narrative: EXAM NARRATIVE: exam performed by RN- telemedicine visit comfortable in bed, NARD vs noted-BP more stable heent- nc/at, eomi, anicteric neck- supple no jvp lungs clear b/l heart irreg irreg abd soft, nt, nd, +Tenkoff catheter ecchymosis on lower abd ext mild left ankle edema neuro- a,a, o x 3 Data : 02/07/20 05:19 02/07/20 05:19 Micro: Microbiology 02/06/20 18:00 Gram Stain - Preliminary Peritoneal Fluid 02/05/20 11:02 MRSA Culture - Preliminary Nose 02/05/20 10:26 Blood Culture - Preliminary Blood NEGATIVE TO DATE 02/05/20 10:20 Blood Culture - Preliminary Blood NEGATIVE TO DATE A&P Additional A&P Information 1. ESRD on peritoneal dialysis. pt appears better -cont CAPD- 5 exchnages of CAPD - alt 1.5% and 2.5% glu, 2 l fills-5 exchanges a day 2. Syncope, orthostasis, possible volume depletion- place eb stockings. -may benefit from midodrine or florinef 3. Anemia, iron replete, received procrit 02/02/20- hgb improved 4. electrolytes- replace k, monitor magnesium, ca, phos 5. UTI, GNR, on imipenem- f/u ur cx sensitivities- try to change to po- ensure imipenem is dosed for CAP/ ESRD -per medicine desire 10- 14 day course 6. + trop as per medicine 7. hypoalbuminemia Recommend: alternate PD 1.5% and 2.5% gluc, 2liters, 5 x daily. Gentamicin cream to exit site daily. 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
--- NOTE | 2020-02-07 07:39 | PC.NURSE ---
phys notification made by me at 0130 done on incorrect patient.
[2020-02-07] MEDS: potassium chloride ER 10 mEq Tablet 40 MEQ PO (07:48)
[2020-02-07] MEDS: sennosides-docusate Tablet 1 TAB PO (07:56)
[2020-02-07] MEDS: atorvastatin 40 mg Tablet PO (07:57)
[2020-02-07] MEDS: pantoprazole DR 40 mg Tablet PO (07:57)
[2020-02-07] MEDS: magnesium oxide 400 mg tablet PO (07:57)
[2020-02-07] MEDS: duloxetine 20 mg Capsule 40 MG PO (07:57)
[2020-02-07] MEDS: aspirin 81 mg Chew Tablet PO (07:57)
[2020-02-07] MEDS: levothyroxine 112 mcg Tablet 224 MCG PO (07:57)
[2020-02-07 08:29] LABS: Glucose Point of Care 82 mg/dL (70-110)
--- NOTE | 2020-02-07 10:13 | PM.DCS ---
Discharge Providers Date of Admission: 02/01/20 15:34 Date of Discharge: February 07, 2020 Attending Provider at Admission: Daksha Burdick MD Attending Provider at Discharge: Flash Luciano MD Consults: Tele nephrology Primary Care Provider: Yovany Leonardo MD Diagnoses at Discharge Discharge Diagnosis (1) Orthostatic syncope: Status: Acute (2) Bradycardia: Status: Acute (3) Frailty: Status: Acute (4) DOROTEO on CPAP: Status: Acute (5) ESRD (end stage renal disease): Status: Acute (6) Partial nontraumatic amputation of left foot: Status: Acute (7) Gastroparesis: Status: Chronic (8) Hypothyroidism: Status: Acute Qualifiers: Hypothyroidism type: acquired Qualified Code(s): E03.9 - Hypothyroidism, unspecified (9) Diabetes: Status: Acute Problem details: Insulin-dependent (10) Peripheral vascular disease: Status: Acute (11) Complicated UTI (urinary tract infection): Status: Acute (12) ESBL (extended spectrum beta-lactamase) producing bacteria infection: Status: Acute Reason for Visit Reason for Visit: dizzy/syncope Hospital Course Discharge Summary: Rizwana Herzog is a 54 year old female who carries diagnosis of end-stage renal disease, peritoneal dialysis catheter in place, diabetic with peripheral vascular disease status post right BKA currently following with wound care clinic for her left chronic leg wound( status post debridement and hyperbaric oxygen therapy) came in after one syncopal event. Patient is stating that today she was walking out of her bathroom towards her bedroom when she felt lightheaded and fell on the ground, as soon as she fell on the ground she regained consciousness, before this event she did not experience any fever, nausea, vomiting, diarrhea, fever, shortness of breath, chest pain or palpitations. Patient is stating that for last few years she has been having problems with her heart rate, maximal heart rate 130 and low was 30. Today she called her PCP who asked her to do orthostatics at home, which were positive. She came to the hospital for further evaluation. Patient is stating that her bowel movements are regular, no recent vomiting, diarrhea. Patient is stating that sometimes on exertion she would feel heaviness in her chest but would not call it chest pain. Next week she is due to see her aircraft powertrain repairer at [place] and prefers to follow-up with her aircraft powertrain repairer as compared to our telemetry aircraft powertrain repairer here. Diagnosis in the ER revealed sinus bradycardia, heart rate dipped down to 30s, with spontaneous improvement to 70s at the time of my evaluation, blood pressure 143, she is orthostatic positive, she has been given fluids in the ER, she is not complaining of chest pain or shortness of breath, troponin 131, potassium 3.5, magnesium 1.4 EKG did not reveal any ischemic or infarctive changes. Patient was admitted to the hospital because syncope most likely because of orthostatic positive. It was thought symptoms are most likely because of aggressive dialysis at home. Her white count was within normal limits though her urine culture was growing ESBL Klebsiella, she was started on imipenem. Also on admission it was also thought it could be because of bradycardia. She was admitted with telemetry and her telemetry during the whole hospitalization remained stable. 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 She responded well to the treatment and orthostasis became negative. She has finished 5-day course of imipenem. She has remained afebrile hemodynamic stable during her whole hospitalization. It is advised that patient should would like to cycle of CAPD at home. At home she does her dialysis overnight to dialyzer. Patient's outpatient dialysis centers have been informed and will get in touch with Dr. Rivas from telemetry nephrology for further discussions. At present patient has been getting 1.5-2.5% glucose dialysis 2 L 5 times a day. She is been discharged hemodynamically stable condition and the plan has been explained to her as well. She is also been advised to wear compression stockings at home. Physical Exam Narrative: EXAM NARRATIVE: General: No acute distress, AO x3, mildly dehydrated HEENT: PERRLA, pupils bilaterally equal and reactive Chest: Normal vesicular breath sounds, no added sounds, equal good air entry bilaterally CVS: S1-S2 regular, no murmurs, no tachycardia, no gallops, no rubs Abdomen: Soft, mild generalized tenderness, no organomegaly, bowel sounds present Neuro: No focal deficits, no facial deformity, AO x3, power 5/5 in all limbs Extremities: Right leg amputation, left leg SCDs present Discharge Data Data Completed and Pending: Completed Studies During Hospitalization Category Date Time Status CT abdomen pelvis wo con [id number] Rout ine Cat Scan 02/06/20 17:37 Completed XR chest 1V sandra ble [id number] Stat Exams 01/31/20 20:12 Completed XR shoulder RT mi n 2V* [id number] Stat Exams 01/31/20 20:11 Completed CV carotid duplex BI* [id number] Routine Ultrasound 02/01/20 15:03 Completed CV echo complete* [id number] Routine Ultrasound 02/01/20 23:20 Completed Pending at discharge Category Date Time Status Blood Culture Sta t Lab 02/05/20 10:26 Results Body Fluid Cultur e & GS Stat Lab 02/06/20 18:00 Results Complete Blood Co unt w/Auto AM LABS Lab 02/08/20 04:00 Ordered Complete Blood Co unt w/Auto AM LABS Lab 02/09/20 04:00 Ordered Comprehensive Met abolic Panel AM LA BS Lab 02/08/20 04:00 Ordered MRSA by PCR Shyami ne Lab 02/05/20 11:02 Results Magnesium AM LABS Lab 02/08/20 04:00 Ordered Magnesium AM LABS Lab 02/09/20 04:00 Ordered Magnesium AM LABS Lab 02/10/20 04:00 Ordered Phosphorus AM LAB S Lab 02/08/20 04:00 Ordered Phosphorus AM LAB S Lab 02/09/20 04:00 Ordered Phosphorus AM LAB S Lab 02/10/20 04:00 Ordered Labs from last 24 hours 02/07/20 02/07/20 02/07/20 07:46 06:36 05:19 WBC 6.1 RBC 3.09 L Hgb 9.9 L Hct 31.5 L MCV 101.9 H MCH 32.0 MCHC 31.4 RDW 13.8 Plt Count 241 MPV 11.1 H Neut % (Auto) 68.2 Lymph % (Auto) 18.1 Mercer % (Auto) 9.5 Eos % (Auto) 3.1 Baso % (Auto) 0.8 Neut # (Auto) 4.18 Lymph # (Auto) 1.1 Mercer # (Auto) 0.6 Eos # (Auto) 0.2 Baso # (Auto) 0.1 Nucleated RBC % (a uto) 0 Nucleated RBCs # 0.0 Sodium Potassium Chloride Carbon Dioxide Anion Gap BUN Creatinine GFR Calculation Glucose POC Glucose 82 65 Calculated Osmolal ity Calcium Phosphorus Magnesium Total Bilirubin AST ALT Alkaline Phosphata se Total Protein Albumin Globulin Fluid Color Fluid Appearance Fluid pH Fluid WBC Fluid RBC Fld Polynuclear WB Cs # Fld Polynuclear WB Cs % Fl Mononucl WBCs # (Auto) Fl Mononuclear % A uto Fluid LDH 02/07/20 02/06/20 02/06/20 05:19 20:16 18:00 WBC RBC Hgb Hct MCV MCH MCHC RDW Plt Count MPV Neut % (Auto) Lymph % (Auto) [place]cer % (Auto) Eos % (Auto) Baso % (Auto) Neut # (Auto) Lymph # (Auto) Mercer # (Auto) Eos # (Auto) Baso # (Auto) Nucleated RBC % (a uto) Nucleated RBCs # Sodium 136 Potassium 3.3 L Chloride 99 Carbon Dioxide 25 Anion Gap 15.3 BUN 18 Creatinine 4.1 H GFR Calculation 11.3 L Glucose 66 POC Glucose 163 Calculated Osmolal ity 277 L Calcium 9.0 Phosphorus 3.3 Magnesium 2.1 Total Bilirubin 0.4 AST 31 ALT 21 Alkaline Phosphata se 82 Total Protein 5.9 L Albumin 2.8 L Globulin 3.1 Fluid Color Colorless Fluid Appearance Clear Fluid pH 8.0 Fluid WBC 3 Fluid RBC 0 Fld Polynuclear WB Cs # 0.001 Fld Polynuclear WB Cs % 33.300 Fl Mononucl WBCs # (Auto) 0.002 Fl Mononuclear % A uto 66.700 Fluid LDH 10 02/06/20 02/06/20 16:49 10:36 WBC RBC Hgb Hct MCV MCH MCHC RDW Plt Count MPV Neut % (Auto) Lymph % (Auto) [place]cer % (Auto) Eos % (Auto) Baso % (Auto) Neut # (Auto) Lymph # (Auto) Mercer # (Auto) Eos # (Auto) Baso # (Auto) Nucleated RBC % (a uto) Nucleated RBCs # Sodium Potassium Chloride Carbon Dioxide Anion Gap BUN Creatinine GFR Calculation Glucose POC Glucose 136 142 Calculated Osmolal ity Calcium Phosphorus Magnesium Total Bilirubin AST ALT Alkaline Phosphata se Total Protein Albumin Globulin Fluid Color Fluid Appearance Fluid pH Fluid WBC Fluid RBC Fld Polynuclear WB Cs # Fld Polynuclear WB Cs % Fl Mononucl WBCs # (Auto) Fl Mononuclear % A uto Fluid LDH Vitals: Last Vital Signs Temp 98.5 F 02/06/20 23:00 Pulse 79 02/07/20 07:36 Resp 17 02/07/20 09:00 BP 142/78 02/07/20 07:36 Pulse Ox 98 09/02/20 04:30 Discharge Plan Discharge Patient Disposition: Home Condition: Stable Prescriptions: Continued duloxetine 40 mg capsule, delayed rel sprinkle 40 mg PO DAILY Qty: 30 RF: 0 tizanidine 4 mg capsule 4 mg PO BID PRN (Reason: muscle spasticity) Qty: 60 RF: 0 pantoprazole 40 mg tablet,delayed release (DR/EC) See Rx Instructions .ROUTE .COMPLEX Qty: 30 RF: 0 levothyroxine 112 mcg tablet 224 mcg PO DAILY Qty: 30 RF: 3 metoprolol succinate 50 mg tablet extended release 24 hr 25 mg PO BID Qty: 60 RF: 3 Hold Instructions: Resume on 09/04/19. Hold until you see outpatient nephrology, resume if deemed appropriate aspirin 81 mg Tablet,Chewable 81 mg PO DAILY RF: 0 Auryxia 210 mg iron tablet 210 mg PO TID RF: 0 multivitamin [Multiple Vitamins] Tablet 1 tab PO DAILY RF: 0 paricalcitol [Zemplar] 1 mcg capsule See Rx Instructions .ROUTE .COMPLEX RF: 0 nitroglycerin 0.4 mg Tablet, Sublingual 0.4 mg SUBLINGUAL Q5M PRN (Reason: Chest Pain) RF: 0 atorvastatin 40 mg tablet 40 mg PO DAILY RF: 0 coenzyme Q10 [CoQ-10] 100 mg Capsule 100 mg PO DAILY RF: 0 cholecalciferol (vitamin D3) [Vitamin D3] 25 mcg (1,000 unit) Tablet,Chewable 25 mcg PO DAILY RF: 0 omega 0-ouf-yyp-fish oil [Fish Oil] 300-1,000 mg Capsule,Delayed Release(Dr/Ec) 1 cap PO DAILY RF: 0 latanoprost 0.005 % drops See Rx Instructions .ROUTE .COMPLEX RF: 0 prednisolone acetate 1 % drops,suspension See Rx Instructions .ROUTE .COMPLEX RF: 0 brimonidine 0.2 % drops See Rx Instructions .ROUTE .COMPLEX RF: 0 dorzolamide-timolol 22.3-6.8 mg/mL drops See Rx Instructions .ROUTE .COMPLEX RF: 0 Drizalma Sprinkle 40 mg capsule, delayed rel sprinkle 40 mg PO DAILY RF: 0 Changed Lantus Solostar U-100 Insulin 100 unit/mL (3 mL) insulin pen 50 unit SUBCUT BEDTIME Qty: 15 RF: 5 Discontinued ciprofloxacin HCl 500 mg tablet 500 mg PO Q12H RF: 0 Discharge Orders: Discharge Order (Routine); Ordered 02/07/20 Ordered By: Flash Luciano Referrals: Yovany Leonardo MD [Primary Care Provider] - 02/21/20 11:15 am Discharge Diet: Usual diet Discharge Activity: Resume usual activity Patient Instructions: Bradycardia, Syncope, Urinary Tract Infection in Women (GEN) Discharge Date/Time: 02/07/20 11:55 Discharge Attestations Time Spent in Discharge Care*: greater than 30 min Specific Discharge Activities: Specific discharge activities: educating patient, discussing with pcp/other providers, discussing with director case/social workers/dc planners, documenting/other paperwork and evaluating patient/reviewing data Status at Discharge: Cognitive status at discharge: cognitively intact, Behavioral status at discharge: cooperative, Functional status at discharge: wheelchair bound Overall status at discharge: patient is back to baseline Quality Metrics Clinical Quality Measures During this hospital stay, did patient experience: None Coding Level of Care Code Acute Rotating Equipment Specialist for Chg Fwd Diagnoses Orthostatic syncope I95.1 Bradycardia R00.1 Frailty R54 DOROTEO on CPAP G47.33; Z99.89 ESRD (end stage renal disease) N18.6 Partial nontraumatic amputation of left foot Z89.432 Gastroparesis K31.84 Hypothyroidism E03.9 Hypothyroidism type: acquired Diabetes E11.9 Peripheral vascular disease I73.9 Complicated UTI (urinary tract infection) N39.0 ESBL (extended spectrum beta-lactamase) producing bacteria infection A49.9; Z16.12
[2020-02-07 11:19] LABS: Glucose Point of Care 164 mg/dL (70-110)
== END 2020-02-07 11:55 | disposition home or self-care (01) | DRG 308 ==
LOC: ER 19:59 → CSU 21:58 → MEDSURG 02-03 21:48
PROVIDERS: Emergency Medicine; Internal Medicine; Internal Medicine Nephrology; Admitting Provider Internal Medicine; PCP Internal Medicine; Visit Provider Student in an Organized Health Care Education/Training Program
DX: R00.1 Bradycardia, unspecified (principal); N18.6 End stage renal disease; I13.2 Hypertensive heart and chronic kidney disease with heart failure and with stage 5 chronic kidney disease, or end stage renal disease; N39.0 Urinary tract infection, site not specified; I95.1 Orthostatic hypotension; E11.22 Type 2 diabetes mellitus with diabetic chronic kidney disease; I50.9 Heart failure, unspecified; Z99.2 Dependence on renal dialysis; E11.51 Type 2 diabetes mellitus with diabetic peripheral angiopathy without gangrene; E11.43 Type 2 diabetes mellitus with diabetic autonomic (poly)neuropathy; K31.84 Gastroparesis; Z89.511 Acquired absence of right leg below knee; F41.9 Anxiety disorder, unspecified; I25.10 Atherosclerotic heart disease of native coronary artery without angina pectoris; Z95.5 Presence of coronary angioplasty implant and graft; F40.240 Claustrophobia; F32.9 Major depressive disorder, single episode, unspecified; Z79.4 Long term (current) use of insulin; K21.9 Gastro-esophageal reflux disease without esophagitis; E78.5 Hyperlipidemia, unspecified; E03.9 Hypothyroidism, unspecified; Z89.422 Acquired absence of other left toe(s); Z86.73 Personal history of transient ischemic attack (TIA), and cerebral infarction without residual deficits; E55.9 Vitamin D deficiency, unspecified; G47.33 Obstructive sleep apnea (adult) (pediatric); Z79.82 Long term (current) use of aspirin; B96.20 Unspecified Escherichia coli [E. coli] as the cause of diseases classified elsewhere; Z98.62 Peripheral vascular angioplasty status; H40.9 Unspecified glaucoma; E87.6 Hypokalemia; D50.9 Iron deficiency anemia, unspecified
CPT/HCPCS: 12345; 36415; 36416; 71045; 73030; 74176; 80048; 80053; 80500; 81001; 82042; 82533; 82607; 82728; 82746; 82945; 82962; 83540; 83550; 83615; 83735; 83986; 84100; 84145; 84157; 84439; 84443; 84466; 84484; 85025; 85378; 85610; 87040; 87070; 87075; 87077; 87086; 87186; 87205; 87641; 89050; 90935; 93005; 93306; 93880; 94660; 96372; 96375; 97110; 97116; 97161; 97530; 99284; G0378; J0743; J1644; J1815 ×2; J2405; J3475; J7030; Q3014; Q4081

== ENCOUNTER 2020-02-16 11:06 | Emergency (ER) | payer MEDICARE, MEDICAID, SELFPAY ==
[2020-02-16] VITALS (7 sets, daily range): BP systolic 155–177; BP diastolic 90–107; PULSE 63–87; RESP 12–18; TEMP 36.9; O2SAT 97–98; BMI 33.9
--- NOTE | 2020-02-16 12:17 | ECG_ITS ---
[facility] Test Date: 2020-02-16 Pat Name: Rizwana Herzog Department: Room: Gender: Female Clinical Resource Manager: : 1965 Requested By: Joslyn Lepe Order Number: [id number] Reading MD: Dong Pitt M.D. Measurements Intervals [place] Rate: 64 P: -38 [place]: 184 QRS: -54 QRSD: 90 T: 25 QT: 424 QTc: 439 Interpretive Statements SINUS RHYTHM LOW QRS VOLTAGE IN PRECORDIAL LEADS [QRS DEFLECTION < 1.0 mV IN CHEST LEADS] POSSIBLE ANTERIOR MYOCARDIAL INFARCTION , PROBABLY OLD [30 ms Q WAVE IN V3/V4, OR R < 0.2 mV IN V4] INFERIOR MYOCARDIAL INFARCTION , PROBABLY OLD [40+ ms Q WAVE AND/OR ST/T ABNORMALITY IN II/aVF] Compared to ECG 02/02/2020 18:28:27 No significant changes Electronically Signed On 02-16-2020 14:49:17 CDT by Dong Pitt M.D. [id number]
--- NOTE | 2020-02-16 12:20 | ED_ITS ---
HPI - General Adult General: Chief complaint: General Medical Stated complaint: multiple complaints Time Seen by Provider: 02/16/20 12:06 History of Present Illness: HPI narrative: This patient is a 54-year-old female presenting today with complaints of high blood pressure. She is also had some lower abdominal pain. She has felt very tired. She also is having new left SI joint area pain. She tells me that her blood pressure medicine was stopped about 2 weeks ago because she was having episodes of very low blood pressure. These were causing her to fall. She has had several falls related to that. Her blood pressures been doing okay after stopping her metoprolol but in the past 2 days it has started to go up pretty high again. She is on peritoneal dialysis with Dr. Florence as her weatherization field technician. She has not had any recent changes in her PD protocol. Her primary care doctor is Dr. Leonardo. She also has mid back pain but that is chronic and unchanged. She denies fevers, chills, cough, chest pain. She has noticed some increased urination. When she was seen here 2 weeks ago for the low blood pressure she also had a UTI at that time. Onset (ago): day(s) (2 days of high blood pressure and new left hip pain, about 4 days of lower abdominal discomfort.) Location: back Radiation: non-radiation Severity: moderate Associated symptoms: Reports nausea and vomiting; Deny chest pain, dyspnea, headache(s), malaise or rash Review of Systems General: Reports: 10 or more systems reviewed and unremarkable except in HPI and below Const: Reports: fatigue; Denies: fever(s), chills or malaise Eyes: Denies: change in vision ENMT: Denies: odynophagia Card: Denies: chest pain or swelling of feet/ankles Resp: Denies: dyspnea, productive cough or non-productive cough GI: Reports: abdominal pain, nausea and vomiting : Reports: urinary frequency; Denies: flank pain or difficulty voiding Musc: Denies: neck pain or back pain Skin/Breast: Denies: rash Neuro: Denies: headache(s), numbness in extremities or weakness in extremities Refugio/Lymph: Denies: easy bruising or easy bleeding PFS ED PFSH: Medical History Anxiety CAD (coronary artery disease) Chronic diastolic CHF (congestive heart failure) Chronic kidney disease, stage V On peritoneal dialysis. Follows with Dr Ann. Claustrophobia Depression Diabetes Insulin-dependent ESRD (end stage renal disease) Gastroparesis GERD (gastroesophageal reflux disease) HTN (hypertension) Hyperlipidemia Hypothyroidism Partial nontraumatic amputation of left foot (~06/2019) Peripheral vascular disease TIA (transient ischemic attack) Vitamin D deficiency Surgical History History of appendectomy History of heart artery stent History of hysterectomy History of left heart catheterization History of right below knee amputation Peritoneal dialysis catheter in place S/P cholecystectomy S/P PICC central line placement Status post amputation of toe Family History Denies family history of CAD (coronary artery disease) Clotting disorder Dementia Bleeding disorder Social History Smoking and tobacco status: never smoked Alcohol intake: never Household members: spouse and family History of recent travel: No Physical Exam Narrative: EXAM NARRATIVE: Appears very tired Const: COMMON NORMALS: no acute distress, patient oriented x3, no limitations and alert GENERAL APPEARANCE: cooperative and comfortable HENMT: HEAD & SCALP: normal to inspection FACE & SINUS: normal facial exam Eye: GENERAL EYE: appearance normal, both eyes and all related structures Neck/C-Spine: COMMON NORMALS: supple, no meningeal signs and no JVD Chest: COMMONS NORMALS: normal inspection of the chest Resp: COMMON NORMALS: normal respiratory effort, No use of accessory muscles and clear to auscultation bilaterally AUSCULTATION: clear to auscultation b ilaterally Cardio: COMMON NORMALS: no JVD, regular rate, regular rhythm and No murmurs present (Cardio) RATE: regular rate RHYTHM: regular rhythm GI: COMMON NORMALS: Normal to inspection, nondistended, normoactive bowel sounds present, Soft to palpation and non-tender INSPECTION: Yes normal to inspection (PD catheter in place) AUSCULTATION: Yes normoactive bowel sounds PALPATION: Yes Soft to palpation and Yes Tenderness to palpation present (GI) (Mild suprapubic) Back/Pelvis: COMMON NORMALS: thoracic and lumbar spine normal to inspection Extremity: COMMON NORMALS: normal to inspection Neuro: COMMON NORMALS: patient oriented x3, moves all extremities, no focal motor deficits and no sensory deficits noted SENSORIUM/ORIENTATION: Yes alert MENINGEAL SIGNS: Yes no meningeal signs Psych: COMMON NORMALS: mental status grossly normal, cooperative and normal affect Skin: COMMON NORMALS: no rashes or lesions noted and turgor normal GENERAL SKIN EXAM: no rashes or lesions noted and turgor normal Course ED course: The patient had an uneventful ER stay. Her blood pressure did continue to be on the high side around 160s over 100. There was some variation but basically in that range. Her heart rate was in the 70s. Her labs came back consistent with her history of dialysis without any other significant findings. Her troponin was elevated which appears to be a baseline finding for her. The delta was not positive. I had considered getting a CT of her abdomen but on review of her records I found that she had had 1 quite recently. Her abdomen is really quite benign. Her urine is potentially contaminated versus a slight infection. She is not having any dysuria at this time and was recently treated for UTI. I think it is prudent to wait for a culture before deciding whether to treat or not. White count is normal. She is afebrile. I do not think she has peritonitis. I do want her restart her metoprolol as she was having such significant symptoms previously. Her blood pressure is slightly elevated but her heart rate is not. I think it would be best for her to follow-up with her weatherization field technician and primary care physician for management of her blood pressure. I do not think it needs to be acutely managed today. On review of her admission to the hospital she did in fact have her diastole change to take off less with each dwell. Vital Signs: Vital signs: Vital Signs Temperature 98.5 F 02/16/20 11:35 Pulse Rate 77 02/16/20 16:06 Respiratory Rate 18 02/16/20 16:06 Blood Pressure 164/98 02/16/20 16:06 Pulse Oximetry 98 02/16/20 16:06 MDM - General Adult Lab Data: Labs: Lab Results 02/16/20 02/16/20 02/16/20 Range/Units 12:35 12:46 12:46 WBC 6.1 (4.0-10.0) 10^3/ uL RBC 3.55 L (4.1-5.3) 10^6/u L Hgb 11.6 (11.5-15.3) g/dL Hct 34.9 L (37.0-47.0) % MCV 98.3 (81-99) fL MCH 32.7 (28.0-34.0) pg MCHC 33.2 (30.0-36.0) g/dL RDW 13.4 (12.1-15.1) % Plt Count 221 (130-400) 10^3/c mm MPV 10.8 H (7.4-10.4) fL Neut % (Auto) 71.2 % Lymph % (Auto) 18.1 % Brule % (Auto) 6.5 % Eos % (Auto) 3.1 % Baso % (Auto) 0.8 % Neut # (Auto) 4.35 (1.8-7.7) 10^3/u L Lymph # (Auto) 1.1 (0.8-4.8) 10^3/u L Brule # (Auto) 0.4 (0.2-0.9) 10^3/u L Eos # (Auto) 0.2 (0.0-0.8) 10^3/u L Baso # (Auto) 0.1 (0.0-0.1) 10^3/u L Nucleated RBC % (a uto) 0 % Nucleated RBCs # 0.0 /100WBC Sodium 136 (136-145) mmol/L Potassium 3.8 (3.5-5.1) mmol/L Chloride 95 L (98-107) mmol/L Carbon Dioxide 27 (22-29) mmol/L Anion Gap 17.8 (5-19) BUN 34 H (6-20) mg/dL Creatinine 4.1 H (0.5-0.9) mg/dL GFR Calculation 11.3 L (90-130) mL/min Glucose 201 H (65-115) mg/dL Calculated Osmolal ity 285 (285-295) mOsm/k g Lactic Acid (0.5-2.2) mmol/L Calcium 9.5 (8.5-10.5) mg/dL Total Bilirubin 0.6 (0.15-1.2) mg/dL AST 12 (0-32) U/L ALT 12 (0-33) U/L Alkaline Phosphata se 94 (35-105) IU/L Troponin T Baselin e (0-10) ng/L Troponin T 120 Min burns paiute (0-10) ng/L Delta Troponin T (0-10) ABS# Total Protein 7.2 (6.6-8.7) g/dL Albumin 3.7 (3.5-5.2) g/dL Globulin 3.5 (1.3-4.6) g/dL Lipase 25 (13-60) U/L Urine Color Yellow (Yellow) Urine Appearance Hazy A (CLEAR) Urine pH 6 (5-7) Ur Specific Gravit y 1.015 (1.005-1.030) Urine Protein 3+ H (Negative) Urine Glucose (UA) 4+ H (Normal) Urine Ketones Negative (Negative) Urine Blood 2+ H (Negative) Urine Nitrate Negative (Negative) Urine Bilirubin Neg (Negative) Urine Urobilinogen Neg (Negative) mg/dL Ur Leukocyte Yara ase Trace H (Negative) Urine RBC 0-4 H (0-2) /hpf Urine WBC 5-10 H (0-5) /hpf Ur Squamous Epith Cells 25-40 H (0-5) /hpf Amorphous Sediment Not Reportable Urine Bacteria 2+ H (NONE) /hpf 02/16/20 02/16/20 02/16/20 Range/Units 12:46 12:46 14:44 WBC (4.0-10.0) 10^3/ uL RBC (4.1-5.3) 10^6/u L Hgb (11.5-15.3) g/dL Hct (37.0-47.0) % MCV (81-99) fL MCH (28.0-34.0) pg MCHC (30.0-36.0) g/dL RDW (12.1-15.1) % Plt Count (130-400) 10^3/c mm MPV (7.4-10.4) fL Neut % (Auto) % Lymph % (Auto) % Brule % (Auto) % Eos % (Auto) % Baso % (Auto) % Neut # (Auto) (1.8-7.7) 10^3/u L Lymph # (Auto) (0.8-4.8) 10^3/u L Brule # (Auto) (0.2-0.9) 10^3/u L Eos # (Auto) (0.0-0.8) 10^3/u L Baso # (Auto) (0.0-0.1) 10^3/u L Nucleated RBC % (a uto) % Nucleated RBCs # /100WBC Sodium (136-145) mmol/L Potassium (3.5-5.1) mmol/L Chloride (98-107) mmol/L Carbon Dioxide (22-29) mmol/L Anion Gap (5-19) BUN (6-20) mg/dL Creatinine (0.5-0.9) mg/dL GFR Calculation (90-130) mL/min Glucose (65-115) mg/dL Calculated Osmolal ity (285-295) mOsm/k g Lactic Acid 1.6 (0.5-2.2) mmol/L Calcium (8.5-10.5) mg/dL Total Bilirubin (0.15-1.2) mg/dL AST (0-32) U/L ALT (0-33) U/L Alkaline Phosphata se (35-105) IU/L Troponin T Baselin e 103 H* (0-10) ng/L Troponin T 120 Min burns paiute 95.93 H (0-10) ng/L Delta Troponin T -7.07 L (0-10) ABS# Total Protein (6.6-8.7) g/dL Albumin (3.5-5.2) g/dL Globulin (1.3-4.6) g/dL Lipase (13-60) U/L Urine Color (Yellow) Urine Appearance (CLEAR) Urine pH (5-7) Ur Specific Gravit y (1.005-1.030) Urine Protein (Negative) Urine Glucose (UA) (Normal) Urine Ketones (Negative) Urine Blood (Negative) Urine Nitrate (Negative) Urine Bilirubin (Negative) Urine Urobilinogen (Negative) mg/dL Ur Leukocyte Yara ase (Negative) Urine RBC (0-2) /hpf Urine WBC (0-5) /hpf Ur Squamous Epith Cells (0-5) /hpf Amorphous Sediment Urine Bacteria (NONE) /hpf Discharge Plan Discharge Patient Disposition: Home Clinical Impression: Peritoneal dialysis catheter in place HTN (hypertension) Qualifiers: Hypertension type: unspecified Qualified Code(s): I10 - Essential (primary) hypertension Condition: Stable Prescriptions: No Action levothyroxine 112 mcg tablet 224 mcg PO DAILY Qty: 30 RF: 3 aspirin 81 mg Tablet,Chewable 81 mg PO DAILY RF: 0 Auryxia 210 mg iron tablet See Rx Instructions .ROUTE .COMPLEX RF: 0 pantoprazole 40 mg tablet,delayed release (DR/EC) 40 mg PO DAILY RF: 0 multivitamin [Multiple Vitamins] Tablet 1 tab PO DAILY RF: 0 paricalcitol [Zemplar] 1 mcg capsule See Rx Instructions .ROUTE .COMPLEX RF: 0 nitroglycerin 0.4 mg Tablet, Sublingual 0.4 mg SUBLINGUAL Q5M PRN (Reason: Chest Pain) RF: 0 atorvastatin 40 mg tablet 40 mg PO DAILY RF: 0 coenzyme Q10 [CoQ-10] 100 mg Capsule 100 mg PO DAILY RF: 0 cholecalciferol (vitamin D3) [Vitamin D3] 25 mcg (1,000 unit) Tablet,Chewable 25 mcg PO DAILY RF: 0 omega 9-orf-dvy-fish oil [Fish Oil] 300-1,000 mg Capsule,Delayed Release(Dr/Ec) 1 cap PO DAILY RF: 0 latanoprost 0.005 % drops See Rx Instructions .ROUTE .COMPLEX RF: 0 brimonidine 0.2 % drops See Rx Instructions .ROUTE .COMPLEX RF: 0 dorzolamide-timolol 22.3-6.8 mg/mL drops See Rx Instructions .ROUTE .COMPLEX RF: 0 Drizalma Sprinkle 40 mg capsule, delayed rel sprinkle 40 mg PO DAILY RF: 0 Lantus Solostar U-100 Insulin 100 unit/mL (3 mL) insulin pen 50 unit SUBCUT BEDTIME Qty: 15 RF: 5 Discharge Orders: Discharge Order (Routine); Ordered 02/16/20 Ordered By: Joslyn Olvera Referrals: Yovany Leonardo MD [Primary Care Provider] - Discharge Diet: Usual diet Discharge Activity: Resume usual activity Patient Instructions: Chronic Hypertension (ED) Activity Restrictions/Additional Instructions: Keep your appointment on Wednesday with your weatherization field technician. Discuss your blood pressure management as well as your lower abdominal discomfort. Your weatherization field technician should be able to check on the results of the urine culture at that time. Return to the ED if chest pain, severe headache, passing out, worsening abdominal pain or fever. Discharge Date/Time: 02/16/20 16:07 Coding Level of Care Code ED Strategic Planning Specialist for Chg Fwd Exam Comprehensive
[2020-02-16 12:53] LABS: Basophils # 0.1 10^3/uL (0.0-0.1); Basophils % 0.8 %; Eosinophils # 0.2 10^3/uL (0.0-0.8); Eosinophils % 3.1 %; Hematocrit 34.9 % (37.0-47.0); Hemoglobin 11.6 g/dL (11.5-15.3); Lymphocytes # 1.1 10^3/uL (0.8-4.8); Lymphocytes % 18.1 %; Mean Corpuscular HGB Conc 33.2 g/dL (30.0-36.0); Mean Corpuscular Hemoglobin 32.7 pg (28.0-34.0); Mean Corpuscular Volume 98.3 fL (81-99); Mean Platelet Volume 10.8 fL (7.4-10.4); Monocytes # 0.4 10^3/uL (0.2-0.9); Monocytes % 6.5 %; Neutrophils # 4.35 10^3/uL (1.8-7.7); Neutrophils % 71.2 %; Nucleated Red Blood Cells % 0 %; Platelet Count 221 10^3/cmm (130-400); Red Blood Count 3.55 10^6/uL (4.1-5.3); Red Cell Distribution Width 13.4 % (12.1-15.1); White Blood Count 6.1 10^3/uL (4.0-10.0)
[2020-02-16 13:13] LABS: Lactic Sepsis W/Reflex 1.6 mmol/L (0.5-2.2)
[2020-02-16 13:14] LABS: Alanine Aminotransferase 12 U/L (0-33); Albumin Level 3.7 g/dL (3.5-5.2); Alkaline Phosphatase 94 IU/L (35-105); Anion Gap 17.8 (5-19); Aspartate Amino Transferase 12 U/L (0-32); Blood Urea Nitrogen 34 mg/dL (6-20); Calcium 9.5 mg/dL (8.5-10.5); Carbon Dioxide 27 mmol/L (22-29); Chloride 95 mmol/L (98-107); Globulin 3.5 g/dL (1.3-4.6); Glomerular Filtration Rate 11.3 mL/min (90-130); Glucose 201 mg/dL (65-115); Lipase 25 U/L (13-60); Osmolality Calculated 285 mOsm/kg (285-295); Potassium 3.8 mmol/L (3.5-5.1); Sodium 136 mmol/L (136-145); Total Bilirubin 0.6 mg/dL (0.15-1.2); Total Protein 7.2 g/dL (6.6-8.7)
[2020-02-16 13:19] LABS: Troponin(5th) Baseline 103 ng/L (0-10)
[2020-02-16 13:21] LABS: Add Urine Microscopic? YES; Bilirubin Urine Neg (Negative); Blood Urine 2+ (Negative); Glucose Urine UA 4+ (Normal); Ketones Urine Negative (Negative); Leukocyte Esterase Urine Trace (Negative); Nitrate Urine Negative (Negative); Protein Urine 3+ (Negative); Specific Gravity, Urine 1.015 (1.005-1.030); Urine Appearance Hazy (CLEAR); Urine Color Yellow (Yellow); Urobilinogen Urine Neg (Negative); pH Urine 6 (5-7)
[2020-02-16 13:22] LABS: Bacteria Urine 2+ /hpf; RBC Urine 0-4 /hpf (0-2); Squamous Epithelial Cell Urine 25-40 /hpf (0-5)
[2020-02-16 13:23] LABS: Add Urine Culture? No
--- NOTE | 2020-02-16 14:17 | ECG_ITS ---
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 Measurements Intervals [place] Rate: 72 P: -50 AL: 195 QRS: -61 QRSD: 85 T: -1 QT: 392 QTc: 430 Interpretive Statements SINUS RHYTHM LOW QRS VOLTAGE IN PRECORDIAL LEADS [QRS DEFLECTION < 1.0 mV IN CHEST LEADS] POSSIBLE ANTERIOR MYOCARDIAL INFARCTION , PROBABLY OLD [30 ms Q WAVE IN V3/V4, OR R < 0.2 mV IN V4] INFERIOR MYOCARDIAL INFARCTION , PROBABLY OLD [40+ ms Q WAVE AND/OR ST/T ABNORMALITY IN II/aVF] Compared to ECG 02/16/2020 12:54:44 No significant changes Electronically Signed On 02-16-2020 14:59:47 CDT by Dong Pitt M.D. [email or web address]
[2020-02-16 15:17] LABS: Troponin 5 2HR 95.93 ng/L (0-10)
[2020-02-16 15:22] LABS: Troponin 5 2HR Delta -7.07 ABS# (0-10)
== END 2020-02-16 16:07 | disposition home or self-care (01) ==
PROVIDERS: Emergency Provider Emergency Medicine; PCP Internal Medicine
DX: I13.2 Hypertensive heart and chronic kidney disease with heart failure and with stage 5 chronic kidney disease, or end stage renal disease (principal); E11.22 Type 2 diabetes mellitus with diabetic chronic kidney disease; N18.5 Chronic kidney disease, stage 5; Z99.2 Dependence on renal dialysis; Z79.82 Long term (current) use of aspirin; Z79.4 Long term (current) use of insulin; I25.10 Atherosclerotic heart disease of native coronary artery without angina pectoris; I50.30 Unspecified diastolic (congestive) heart failure; E78.5 Hyperlipidemia, unspecified; Z86.73 Personal history of transient ischemic attack (TIA), and cerebral infarction without residual deficits; Z89.511 Acquired absence of right leg below knee
CPT/HCPCS: 12345; 36415; 80053; 81001; 83605; 83690; 84484; 85025; 93005; 99283; 99284

== ENCOUNTER 2020-02-20 11:51 | Outpatient (RCR) | payer MEDICARE, MEDICAID, SELFPAY ==
--- NOTE | 2020-01-31 21:33 | PM.HP ---
Providers/Chief Complaint Primary Care Provider: Yovany Leonardo MD Chief Complaint: REPEATED FALLS; ABSENCE OF R LEG BELOW KNEE History of Present Illness Rizwana Herzog is a 54 year old female Rizwana Herzog is a 54 year old female who carries diagnosis of end-stage renal disease, peritoneal dialysis catheter in place, diabetic with peripheral vascular disease status post right BKA currently following with wound care clinic for her left chronic leg wound( status post debridement and hyperbaric oxygen therapy) came in after one syncopal event. Medications/Allergies Home Medications Medication Instructions Recorded Confirmed Last Taken Type aspirin 81 mg PO DAILY 06/25/19 01/31/20 01/31/20 History multivitamin [Multiple Vitamins] 1 tab PO DAILY 06/30/19 01/31/20 01/31/20 History paricalcitol [Zemplar] See Rx Instructions .ROUTE .COMPLEX 06/30/19 01/31/20 01/31/20 History nitroglycerin 0.4 mg SUBLINGUAL Q5M PRN 08/01/19 01/31/20 09/05/19 History ferric citrate 210 mg iron tablet 210 mg PO TID tab 09/06/19 01/31/20 01/31/20 History atorvastatin 40 mg PO DAILY 09/26/19 01/31/20 01/31/20 History pantoprazole 40 mg tablet,delayed See Rx Instructions .ROUTE 11/28/19 01/31/20 01/31/20 Rx release .COMPLEX #30 each insulin glargine 100 unit/mL (3 50 unit SUBCUT BID #15 ml 12/11/19 01/31/20 01/31/20 Rx mL) subcutaneous pen levothyroxine 112 mcg tablet 224 mcg PO DAILY #30 tab 12/11/19 01/31/20 01/31/20 Rx duloxetine 40 mg capsule,delayed 40 mg PO DAILY #30 cap 01/01/20 01/31/20 01/31/20 Rx release sprinkle cholecalciferol (vitamin D3) 25 mcg PO DAILY 01/17/20 01/31/20 01/31/20 History [Vitamin D3] coenzyme Q10 [CoQ-10] 100 mg PO DAILY 01/17/20 01/31/20 01/31/20 History metoprolol succinate 50 mg 25 mg PO BID #60 tab 01/17/20 01/31/20 01/31/20 Rx tablet,extended release 24 hr omega 1-www-ltd-fish oil [Fish Oil] 1 cap PO DAILY 01/17/20 01/31/20 01/31/20 History tizanidine 4 mg capsule 4 mg PO BID PRN #60 cap 01/24/20 01/31/20 Unknown Rx brimonidine See Rx Instructions .ROUTE .COMPLEX 01/31/20 01/31/20 Unknown History ciprofloxacin HCl 500 mg PO Q12H 01/31/20 01/31/20 01/31/20 History dorzolamide-timolol See Rx Instructions .ROUTE .COMPLEX 01/31/20 01/31/20 Unknown History duloxetine [Drizalma Sprinkle] 40 mg PO DAILY 01/31/20 01/31/20 01/31/20 History latanoprost See Rx Instructions .ROUTE .COMPLEX 01/31/20 01/31/20 Unknown History prednisolone acetate See Rx Instructions .ROUTE .COMPLEX 01/31/20 01/31/20 Unknown History Allergies Allergy/AdvReac Type Severity Reaction Status Date / Time metformin [From Glucophage] Allergy Severe Unknown Verified 01/31/20 20:36 venlafaxine [From Effexor] Allergy Severe ADR-Shakine Verified 01/31/20 20:36 ss PFSH Acute PFSH: Medical History Anxiety CAD (coronary artery disease) Chronic diastolic CHF (congestive heart failure) Chronic kidney disease, stage V On peritoneal dialysis. Follows with Dr Ann. Claustrophobia Depression Diabetes Insulin-dependent ESRD (end stage renal disease) Gastroparesis GERD (gastroesophageal reflux disease) HTN (hypertension) Hyperlipidemia Hypothyroidism Partial nontraumatic amputation of left foot (~06/2019) Peripheral vascular disease TIA (transient ischemic attack) Vitamin D deficiency Surgical History History of appendectomy History of heart artery stent History of hysterectomy History of left heart catheterization History of right below knee amputation Peritoneal dialysis catheter in place S/P cholecystectomy S/P PICC central line placement Status post amputation of toe Family History Denies family history of CAD (coronary artery disease) Clotting disorder Dementia Bleeding disorder Social History Smoking and tobacco status: never smoked Alcohol intake: never Household members: spouse and family History of recent travel: No Coding Level of Care Code Acute Service Observer Chief for [facility] Fwparth
== END 2020-03-06 23:59 | disposition home or self-care (01) ==
LOC: SPT 11:51
PROVIDERS: PCP Internal Medicine; Referring Provider Internal Medicine; Visit Provider Internal Medicine
DX: R29.6 Repeated falls (principal); Z89.511 Acquired absence of right leg below knee
CPT/HCPCS: 97110; 97116; 97162

== ENCOUNTER 2020-03-07 06:00 | Outpatient (RCR) | payer MEDICARE, MEDICAID, SELFPAY | END 2020-04-06 23:59 | disposition home or self-care (01) | LOC: SPT 06:00 | PROVIDERS: PCP Internal Medicine; Referring Provider Internal Medicine; Visit Provider Internal Medicine | DX: R29.6 Repeated falls (principal); Z89.511 Acquired absence of right leg below knee | CPT/HCPCS: 97110 ==

== ENCOUNTER 2020-04-01 00:53 | Observation (INO) | payer MEDICARE, MEDICAID, SELFPAY ==
[2020-04-01] VITALS (22 sets, daily range): BP systolic 80–156; BP diastolic 43–94; PULSE 61–132; RESP 10–27; TEMP 36.5–36.7; O2SAT 88–100; BMI 34.9
--- NOTE | 2020-04-01 01:17 | XR_ITS ---
WS: [id number] Exam: XR chest 1V portable [id number] Date/Time of Exam: 04/01/2020 1:20 AM Reason For Exam: syncope Comparison 01/31/2020. The lungs are fully expanded. Chronic plaque atelectasis at the right perihilar region. Normal cardio mediastinal structures. Low lung volumes secondary to limited inspiration. XR/XR chest 1V portable [id number] IMPRESSION: 1. No acute cardiopulmonary finding. No change.
--- NOTE | 2020-04-01 01:18 | ED_ITS ---
Documented by User: CHAVA Manning 04/01/20 03:20 HPI - Chest Pain General: Chief Complaint: Chest Pain Stated Complaint: cp Time Seen by Provider: 04/01/20 01:07 History of Present Illness: HPI narrative: 55-year-old female patient presents to the emergency department with 1 hour onset of chest pain. She restates chest pain at home was 10/10, administered self nitroglycerin, did help some. She reports her pain now 8/10. She reports nausea with shortness of breath at onset of chest pain. She describes chest pain as sharp, denies fever chills or cough. She states chest pain started during peritoneal dialysis tonight. Did not complete dialysis. Tachycardic to the monitor, 120s to 130s. She reports heart medication discontinued secondary to bradycardia. Recent hospital admissions in February 2020 due to hypotension and bradycardia. MD complaint: chest pain, chest discomfort and other (PCI - stent LAD 2019, [place], [place]) Pertinent past history: coronary artery disease and [employer]CH[employer]IAN Onset (ago): hour(s) (1) Timing of current episode: constant Prior episodes: Yes Onset: during rest and awoke with symptoms Pain location: left chest Pain radiation: left arm, back and left shoulder Severity: similar to previous episodes Pain scale (0-10): 8 Quality: sharp Relieving factors: nitroglycerin Exacerbating factors: exertion Associated symptoms: Reports dyspnea and nausea; Deny abdominal pain, diaphoresis, fever(s), palpitations or vomiting Treatment prior to arrival: aspirin and nitroglycerin Review of Systems General: Reports: 10 or more systems reviewed and unremarkable except in HPI and below Const: Denies: fever(s), chills or diaphoresis Eyes: Denies: blurry vision or eye redness ENMT: Denies: throat pain, dental pain or disequilibrium Card: Reports: chest pain, swelling of feet/ankles, lightheadedness, dyspnea on exertion and orthopnea; Denies: palpitations or irregular heart rhythm Resp: Reports: dyspnea and pain on inspiration; Denies: productive cough or wheezing GI: Reports: nausea and early satiety; Denies: abdominal pain, vomiting or heartburn : Denies: difficulty voiding or dysuria Musc: Reports: muscle weakness (chronic from peritoneal dialysis); Denies: neck pain or back pain Skin/Breast: Denies: rash or pruritus Neuro: Reports: weakness in extremities (chronic), difficulty walking (due to RLE amputation) and vertigo; Denies: headache(s) or behavioral changes Psych: Reports: anxiety (r/t illness); Denies: depression, hopelessness or irritability Refugio/Lymph: Denies: easy bruising PFSH ED PFSH: Medical History Anxiety CAD (coronary artery disease) Chronic diastolic CHF (congestive heart failure) Chronic kidney disease, stage V On peritoneal dialysis. Follows with Dr Ann. Claustrophobia Depression Diabetes Insulin-dependent ESRD (end stage renal disease) Gastroparesis GERD (gastroesophageal reflux disease) HTN (hypertension) Hyperlipidemia Hypothyroidism Partial nontraumatic amputation of left foot (~06/2019) Peripheral vascular disease TIA (transient ischemic attack) Vitamin D deficiency Surgical History History of appendectomy History of heart artery stent History of hysterectomy History of left heart catheterization History of right below knee amputation Peritoneal dialysis catheter in place S/P cholecystectomy S/P PICC central line placement Status post amputation of toe Family History Denies family history of CAD (coronary artery disease) Clotting disorder Dementia Bleeding disorder Social History Smoking and tobacco status: never smoked Alcohol intake: never Household members: spouse and family History of recent travel: No Physical Exam Const: COMMON NORMALS: no acute distress, patient oriented x3 and alert GENERAL APPEARANCE: cooperative, comfortable, frail appearing and well hydrated NUTRITIONAL APPEARANCE: overweight ORIENTATION/CONSCIOUSNESS: Yes awake, Yes oriented to person, Yes oriented to place and Yes oriented to time HENMT: COMMON NORMALS: normocephalic, Normal external nose present and moist oral mucous membranes HEAD & SCALP: normocephalic NOSE: Normal external nose present Eye: COMMON NORMALS: Equal, round and reactive pupils present and EOMs intact bilaterally GENERAL EYE: appearance normal, both eyes and all related structures PUPIL: Yes Equal, round and reactive pupils present Neck/C-Spine: COMMON NORMALS: full ROM and no lymphadenopathy GENERAL: Yes normal visual inspection and Yes trachea midline CERVICAL SPINE: Yes cervical ROM normal Lymph: LYMPHATIC: no lymphadenopathy noted Chest: COMMONS NORMALS: normal inspection of the chest and normal palpation of entire chest wall Resp: COMMON NORMALS: normal respiratory effort and clear to auscultation bilaterally EFFORT & INSPECTION: Yes able to speak in complete sentences and Yes symmetric chest movement AUSCULTATION: clear to auscultation bilaterally Cardio: COMMON NORMALS: S1 normal heart sound present, S2 normal heart sound present and Peripheral pulses 2+ throughout RATE: tachycardic HEART SOUNDS: S1 normal heart sound present and S2 normal heart sound present PERIPHERAL PULSES: Peripheral pulses 2+ throughout GI: COMMON NORMALS: Normal to inspection, nondistended, normoactive bowel sounds present and Soft to palpation INSPECTION: Yes normal to inspection PALPATION: Yes Soft to palpation and Yes Tenderness to palpation present (GI) (epigastric) Details: RUQ : COMMON NORMALS: Yes no CVA tenderness BLADDER/KIDNEY EXAM: Yes no CVA tenderness Back/Pelvis: COMMON NORMALS: no CVA tenderness and thoracic and lumbar spine normal to inspection Extremity: COMMON NORMALS: normal to inspection and capillary refill normal Neuro: COMMON NORMALS: patient oriented x3 and no focal motor deficits SENSORIUM/ORIENTATION: Yes alert, Yes oriented to person, Yes oriented to place and Yes oriented to time Psych: COMMON NORMALS: mental status grossly normal, Normal thought process present and cooperative ACTIVITY/MOTOR BEHAVIOR: Yes appropriate eye contact THOUGHT PROCESS: Normal thought process present Skin: COMMON NORMALS: no rashes or lesions noted and turgor normal GENERAL SKIN EXAM: no rashes or lesions noted and turgor normal Course ED course: 55-year-old female patient presents to the emergency department with chest pain, radiation to the left shoulder/arm. Nausea controlled with Zofran, pain controlled with morphine. Creatinine elevated at 7.9, initial troponin elevated 123. 2-hour troponin pending. Rate 120s to 130s, atrial tachycardia, 2.5 mg metoprolol administered IV with rate improved, 80s to 90s. transfer of care to Dr. Ambriz. Vital Signs: Vital signs: Vital Signs Temperature 97.8 F 04/01/20 00:57 Pulse Rate 94 04/01/20 04:30 Respiratory Rate 16 04/01/20 04:30 Blood Pressure 96/43 04/01/20 04:30 Pulse Oximetry 100 04/01/20 04:30 MDM - Chest Pain Lab Data: Labs: Lab Results 04/01/20 04/01/20 04/01/20 Range/Units 01:15 01:15 01:15 WBC 6.3 (4.0-10.0) 10^3/ uL RBC 3.34 L (4.1-5.3) 10^6/u L Hgb 10.8 L (11.5-15.3) g/dL Hct 31.3 L (37.0-47.0) % MCV 93.7 (81-99) fL MCH 32.3 (28.0-34.0) pg MCHC 34.5 (30.0-36.0) g/dL RDW 12.6 (12.1-15.1) % Plt Count 233 (130-400) 10^3/c mm MPV 11.2 H (7.4-10.4) fL Neut % (Auto) 64.7 % Lymph % (Auto) 22.2 % [place] % (Auto) 8.1 % Eos % (Auto) 4.1 % Baso % (Auto) 0.6 % Neut # (Auto) 4.08 (1.8-7.7) 10^3/u L Lymph # (Auto) 1.4 (0.8-4.8) 10^3/u L [place] # (Auto) 0.5 (0.2-0.9) 10^3/u L Eos # (Auto) 0.3 (0.0-0.8) 10^3/u L Baso # (Auto) 0.0 (0.0-0.1) 10^3/u L Nucleated RBC % (a uto) 0 % Nucleated RBCs # 0.0 /100WBC PT 13.40 (12.1-14.9) SECO NDS INR 0.99 (0.8-1.2) APTT 31.1 (23.9-36.7) SECO NDS D-Dimer 0.64 H (0-0.59) ug/mIFE U Sodium 130 L (136-145) mmol/L Potassium 3.3 L (3.5-5.1) mmol/L Chloride 90 L (98-107) mmol/L Carbon Dioxide 27 (22-29) mmol/L Anion Gap 16.3 (5-19) BUN 34 H (6-20) mg/dL Creatinine 7.9 H* (0.5-0.9) mg/dL GFR Calculation 5.3 L (90-130) mL/min Glucose 245 H (65-115) mg/dL Calculated Osmolal ity 286 (285-295) mOsm/k g Lactate (0.5-2.2) mmol/L Calcium 9.8 (8.5-10.5) mg/dL Total Bilirubin 0.4 (0.15-1.2) mg/dL AST 13 (0-32) U/L ALT 12 (0-33) U/L Alkaline Phosphata se 118 H (35-105) IU/L Troponin T Baselin e (0-10) ng/L Troponin T 120 Min [place] (0-10) ng/L Delta Troponin T (0-10) ABS# Total Protein 6.3 L (6.6-8.7) g/dL Albumin 3.3 L (3.5-5.2) g/dL Globulin 3.0 (1.3-4.6) g/dL 04/01/20 04/01/20 04/01/20 Range/Units 01:15 01:15 03:04 WBC (4.0-10.0) 10^3/ uL RBC (4.1-5.3) 10^6/u L Hgb (11.5-15.3) g/dL Hct (37.0-47.0) % MCV (81-99) fL MCH (28.0-34.0) pg MCHC (30.0-36.0) g/dL RDW (12.1-15.1) % Plt Count (130-400) 10^3/c mm MPV (7.4-10.4) fL Neut % (Auto) % Lymph % (Auto) % [place] % (Auto) % Eos % (Auto) % Baso % (Auto) % Neut # (Auto) (1.8-7.7) 10^3/u L Lymph # (Auto) (0.8-4.8) 10^3/u L [place] # (Auto) (0.2-0.9) 10^3/u L Eos # (Auto) (0.0-0.8) 10^3/u L Baso # (Auto) (0.0-0.1) 10^3/u L Nucleated RBC % (a uto) % Nucleated RBCs # /100WBC PT (12.1-14.9) SECO NDS INR (0.8-1.2) APTT (23.9-36.7) SECO NDS D-Dimer (0-0.59) ug/mIFE U Sodium (136-145) mmol/L Potassium (3.5-5.1) mmol/L Chloride (98-107) mmol/L Carbon Dioxide (22-29) mmol/L Anion Gap (5-19) BUN (6-20) mg/dL Creatinine (0.5-0.9) mg/dL GFR Calculation (90-130) mL/min Glucose (65-115) mg/dL Calculated Osmolal ity (285-295) mOsm/k g Lactate 2.1 (0.5-2.2) mmol/L Calcium (8.5-10.5) mg/dL Total Bilirubin (0.15-1.2) mg/dL AST (0-32) U/L ALT (0-33) U/L Alkaline Phosphata se (35-105) IU/L Troponin T Baselin e 123 H* (0-10) ng/L Troponin T 120 Min [place] 118.4 H (0-10) ng/L Delta Troponin T -4.6 L (0-10) ABS# Total Protein (6.6-8.7) g/dL Albumin (3.5-5.2) g/dL Globulin (1.3-4.6) g/dL EKG Data^: EKG 2: EKG interpretation date: 04/01/20 EKG interpretation time: 03:03 Prior EKG tracings: available for review Computer generated interpretation: Ectopic atrial tachycardia with first-degree AV block, possible left atrial enlargement, inferior myocardial infarction of indeterminate age, anterior lateral myocardial infarction of indeterminate age, abnormal ECG EKG 1: EKG interpretation date: 04/01/20 EKG interpretation time: 01:00 Prior EKG tracings: available for review Computer generated interpretation: Ectopic atrial rhythm with frequent supraventricular premature complexes, left axis deviation, possible anterior myocardial infarction, inferior myocardial infarction, abnormal ECG Discharge Plan Discharge Patient Disposition: Placed in Observation Admit Provider: Daksha Burdick Clinical Impression: Chest pain Condition: Stable Discharge Orders: Discharge Order (Routine); Ordered 04/01/20 Ordered By: Wayne Ambriz Discharge Diet: Usual diet Discharge Activity: Increase activity as tolerated Interventions: ED Discharge Assessment Last Done: 04/01/20 05:06 ED Charges Last Done: 04/01/20 05:06 Discharge Date/Time: 04/01/20 05:21 Coding Level of Care Code ED Blasting Miner for Chg Fwd Exam Comprehensive Documented by User: Wayne Ambriz, 04/01/20 05:23 HPI - Chest Pain General: Chief Complaint: Chest Pain Stated Complaint: cp Time Seen by Provider: 04/01/20 01:07 PFSH ED PFSH: Medical History Anxiety CAD (coronary artery disease) Chronic diastolic CHF (congestive heart failure) Chronic kidney disease, stage V On peritoneal dialysis. Follows with Dr Ann. Claustrophobia Depression Diabetes Insulin-dependent ESRD (end stage renal disease) Gastroparesis GERD (gastroesophageal reflux disease) HTN (hypertension) Hyperlipidemia Hypothyroidism Partial nontraumatic amputation of left foot (~06/2019) Peripheral vascular disease TIA (transient ischemic attack) Vitamin D deficiency Surgical History History of appendectomy History of heart artery stent History of hysterectomy History of left heart catheterization History of right below knee amputation Peritoneal dialysis catheter in place S/P cholecystectomy S/P PICC central line placement Status post amputation of toe Family History Denies family history of CAD (coronary artery disease) Clotting disorder Dementia Bleeding disorder Social History Smoking and tobacco status: never smoked Alcohol intake: never Household members: spouse and family History of recent travel: No Course Consultations: Consultation #1: Arthur Time: 04:53 Vital Signs: Vital signs: Vital Signs Temperature 97.8 F 04/01/20 00:57 Pulse Rate 94 04/01/20 04:30 Respiratory Rate 16 04/01/20 04:30 Blood Pressure 96/43 04/01/20 04:30 Pulse Oximetry 100 04/01/20 04:30 MDM - Chest Pain MDM Narrative: Medical decision making narrative: 55-year-old female checked out to me by BILL Moctezuma. I agree with her history, evaluation, work-up, and treatment. This lady is a peritoneal dialysis patient with a distant history of coronary disease, who has been having palpitations due to increased heart rate for the past couple of weeks. She gets jolts of chest pressure, that worsened with deep breathing. She is not hypoxic. The pain is not constant. The patient's D-dimer is equivocal. Her troponin is at baseline and did not change at 2 hours. Her EKG shows multifocal atria tachycardia. Second EKG shows a similar rhythm with a slower rate after metoprolol. Her blood pressure sank down to the low 80s systolic at 1 point following administration of the metoprolol. Because she has been hypotensive, and her rate has been fluctuating, she will be observed. Hospitalist is aware and is seeing the patient. Lab Data: Labs: Lab Results 04/01/20 04/01/20 04/01/20 Range/Units 01:15 01:15 01:15 WBC 6.3 (4.0-10.0) 10^3/ uL RBC 3.34 L (4.1-5.3) 10^6/u L Hgb 10.8 L (11.5-15.3) g/dL Hct 31.3 L (37.0-47.0) % MCV 93.7 (81-99) fL MCH 32.3 (28.0-34.0) pg MCHC 34.5 (30.0-36.0) g/dL RDW 12.6 (12.1-15.1) % Plt Count 233 (130-400) 10^3/c mm MPV 11.2 H (7.4-10.4) fL Neut % (Auto) 64.7 % Lymph % (Auto) 22.2 % [place] % (Auto) 8.1 % Eos % (Auto) 4.1 % Baso % (Auto) 0.6 % Neut # (Auto) 4.08 (1.8-7.7) 10^3/u L Lymph # (Auto) 1.4 (0.8-4.8) 10^3/u L [place] # (Auto) 0.5 (0.2-0.9) 10^3/u L Eos # (Auto) 0.3 (0.0-0.8) 10^3/u L Baso # (Auto) 0.0 (0.0-0.1) 10^3/u L Nucleated RBC % (a uto) 0 % Nucleated RBCs # 0.0 /100WBC PT 13.40 (12.1-14.9) SECO NDS INR 0.99 (0.8-1.2) APTT 31.1 (23.9-36.7) SECO NDS D-Dimer 0.64 H (0-0.59) ug/mIFE U Sodium 130 L (136-145) mmol/L Potassium 3.3 L (3.5-5.1) mmol/L Chloride 90 L (98-107) mmol/L Carbon Dioxide 27 (22-29) mmol/L Anion Gap 16.3 (5-19) BUN 34 H (6-20) mg/dL Creatinine 7.9 H* (0.5-0.9) mg/dL GFR Calculation 5.3 L (90-130) mL/min Glucose 245 H (65-115) mg/dL Calculated Osmolal ity 286 (285-295) mOsm/k g Lactate (0.5-2.2) mmol/L Calcium 9.8 (8.5-10.5) mg/dL Total Bilirubin 0.4 (0.15-1.2) mg/dL AST 13 (0-32) U/L ALT 12 (0-33) U/L Alkaline Phosphata se 118 H (35-105) IU/L Troponin T Baselin e (0-10) ng/L Troponin T 120 Min [place] (0-10) ng/L Delta Troponin T (0-10) ABS# Total Protein 6.3 L (6.6-8.7) g/dL Albumin 3.3 L (3.5-5.2) g/dL Globulin 3.0 (1.3-4.6) g/dL 04/01/20 04/01/20 04/01/20 Range/Units 01:15 01:15 03:04 WBC (4.0-10.0) 10^3/ uL RBC (4.1-5.3) 10^6/u L Hgb (11.5-15.3) g/dL Hct (37.0-47.0) % MCV (81-99) fL MCH (28.0-34.0) pg MCHC (30.0-36.0) g/dL RDW (12.1-15.1) % Plt Count (130-400) 10^3/c mm MPV (7.4-10.4) fL Neut % (Auto) % Lymph % (Auto) % [place] % (Auto) % Eos % (Auto) % Baso % (Auto) % Neut # (Auto) (1.8-7.7) 10^3/u L Lymph # (Auto) (0.8-4.8) 10^3/u L [place] # (Auto) (0.2-0.9) 10^3/u L Eos # (Auto) (0.0-0.8) 10^3/u L Baso # (Auto) (0.0-0.1) 10^3/u L Nucleated RBC % (a uto) % Nucleated RBCs # /100WBC PT (12.1-14.9) SECO NDS INR (0.8-1.2) APTT (23.9-36.7) SECO NDS D-Dimer (0-0.59) ug/mIFE U Sodium (136-145) mmol/L Potassium (3.5-5.1) mmol/L Chloride (98-107) mmol/L Carbon Dioxide (22-29) mmol/L Anion Gap (5-19) BUN (6-20) mg/dL Creatinine (0.5-0.9) mg/dL GFR Calculation (90-130) mL/min Glucose (65-115) mg/dL Calculated Osmolal ity (285-295) mOsm/k g Lactate 2.1 (0.5-2.2) mmol/L Calcium (8.5-10.5) mg/dL Total Bilirubin (0.15-1.2) mg/dL AST (0-32) U/L ALT (0-33) U/L Alkaline Phosphata se (35-105) IU/L Troponin T Baselin e 123 H* (0-10) ng/L Troponin T 120 Min [place] 118.4 H (0-10) ng/L Delta Troponin T -4.6 L (0-10) ABS# Total Protein (6.6-8.7) g/dL Albumin (3.5-5.2) g/dL Globulin (1.3-4.6) g/dL Discharge Plan Discharge Patient Disposition: Placed in Observation Admit Provider: Daksha Burdick Clinical Impression: Chest pain Condition: Stable Discharge Orders: Discharge Order (Routine); Ordered 04/01/20 Ordered By: Wayne Ambriz Discharge Diet: Usual diet Discharge Activity: Increase activity as tolerated Interventions: ED Discharge Assessment Last Done: 04/01/20 05:06 ED Charges Last Done: 04/01/20 05:06 Discharge Date/Time: 04/01/20 05:21 Coding Level of Care Code ED Blasting Miner for Chg Fwd Exam Comprehensive
--- NOTE | 2020-04-01 01:18 | ECG_ITS ---
[facility] Test Date: 2020-04-01 Pat Name: Rizwana Herzog Department: Room: Gender: Female Belt Notcher: : 1965 Requested By: Linda Cortes Order Number: [id number] Catherine MD: Soraya Ignacio M.D. Measurements Intervals [place] Rate: 111 P: 265 MO: 175 QRS: -64 QRSD: 83 T: -40 QT: 391 QTc: 533 Interpretive Statements ECTOPIC ATRIAL TACHYCARDIA LEFT AXIS DEVIATION [QRS AXIS < -30] ANTERIOR MYOCARDIAL INFARCTION , OF INDETERMINATE AGE INFERIOR MYOCARDIAL INFARCTION , OF INDETERMINATE AGE MODERATE T-WAVE ABNORMALITY, CONSIDER LATERAL ISCHEMIA Compared to ECG 02/16/2020 14:37:32 Left-axis deviation now present T-wave abnormality now present Possible ischemia now present Sinus rhythm no longer present Myocardial infarct finding still present Electronically Signed On 04-02-2020 7:21:33 CDT by Soraya Ignacio M.D. [id number]
--- NOTE | 2020-04-01 01:19 | PM.HP ---
Providers/Chief Complaint Primary Care Provider: Yovany Leonardo MD Chief Complaint: cp History of Present Illness Rizwana Herzog is a 55 year old female end-stage renal disease, peritoneal dialysis catheter in place, diabetic with peripheral vascular disease status post right BKA currently following with wound care clinic for her left chronic leg wound( status post debridement and hyperbaric oxygen therapy) Medications/Allergies Home Medications Medication Instructions Recorded Confirmed Last Taken Type aspirin 81 mg PO DAILY 06/25/19 02/26/20 02/15/20 History multivitamin [Multiple Vitamins] 1 tab PO DAILY 06/30/19 02/26/20 02/15/20 History paricalcitol [Zemplar] See Rx Instructions .ROUTE .COMPLEX 06/30/19 02/26/20 01/31/20 History ferric citrate 210 mg iron tablet See Rx Instructions .ROUTE 09/06/19 02/26/20 02/15/20 History .COMPLEX tab levothyroxine 112 mcg tablet 224 mcg PO DAILY #30 tab 12/11/19 02/26/20 02/15/20 Rx cholecalciferol (vitamin D3) 25 mcg PO DAILY 01/17/20 02/26/20 02/15/20 History [Vitamin D3] coenzyme Q10 [CoQ-10] 100 mg PO DAILY 01/17/20 02/26/20 02/15/20 History omega 0-juc-mgt-fish oil [Fish Oil] 1 cap PO DAILY 01/17/20 02/26/20 02/15/20 History Drizalma Sprinkle 40 mg PO DAILY 01/31/20 02/26/20 02/15/20 History brimonidine See Rx Instructions .ROUTE .COMPLEX 01/31/20 02/26/20 02/15/20 History dorzolamide-timolol See Rx Instructions .ROUTE .COMPLEX 01/31/20 02/26/20 02/15/20 History latanoprost See Rx Instructions .ROUTE .COMPLEX 01/31/20 02/26/20 02/15/20 History Lantus Solostar U-100 Insulin 50 unit SUBCUT BEDTIME #15 ml 02/07/20 02/26/20 02/15/20 Rx pantoprazole 40 mg PO DAILY 02/16/20 02/26/20 02/15/20 History nitroglycerin 0.4 mg sublingual 0.4 mg SUBLINGUAL Q5M PRN #25 tab 03/26/20 03/26/20 Unknown Rx tablet atorvastatin 40 mg tablet 40 mg PO DAILY #30 tab 03/27/20 Unknown Rx Allergies Allergy/AdvReac Type Severity Reaction Status Date / Time metformin [From Glucophage] Allergy Severe Unknown Verified 04/01/20 01:04 venlafaxine [From Effexor] Allergy Severe ADR-Shakine Verified 04/01/20 01:04 ss PFSH Acute PFSH: Medical History (Updated 03/26/20 @ 09:01 by Soraya Ignacio MD) Anxiety CAD (coronary artery disease) Chronic diastolic CHF (congestive heart failure) Chronic kidney disease, stage V On peritoneal dialysis. Follows with Dr Ann. Claustrophobia Depression Diabetes Insulin-dependent ESRD (end stage renal disease) Gastroparesis GERD (gastroesophageal reflux disease) HTN (hypertension) Hyperlipidemia Hypothyroidism Partial nontraumatic amputation of left foot (~06/2019) Peripheral vascular disease TIA (transient ischemic attack) Vitamin D deficiency Surgical History History of appendectomy History of heart artery stent History of hysterectomy History of left heart catheterization History of right below knee amputation Peritoneal dialysis catheter in place S/P cholecystectomy S/P PICC central line placement Status post amputation of toe Family History Denies family history of CAD (coronary artery disease) Clotting disorder Dementia Bleeding disorder Social History Smoking and tobacco status: never smoked Alcohol intake: never Household members: spouse and family History of recent travel: No Vitals/I&O/Wt Last Vital Signs Temp 97.8 F 04/01/20 00:57 Pulse 116 H 04/01/20 00:57 Resp 27 H 04/01/20 00:57 BP 124/78 04/01/20 00:57 Pulse Ox 95 04/01/20 00:57 Weight last 48 hrs Weight 95.254 kg Coding Level of Care Code Acute Customer Support Advisor for Maris Braden
[2020-04-01] MEDS: ondansetron 2 mg/ML SDV 2 mL 4 MG IVP ×3 (01:22→21:29)
[2020-04-01] MEDS: morphine 4 mg/mL SDV 1 mL IVP (01:22)
[2020-04-01 01:29] LABS: Basophils % 0.6 %; Eosinophils # 0.3 10^3/uL (0.0-0.8); Eosinophils % 4.1 %; Hematocrit 31.3 % (37.0-47.0); Hemoglobin 10.8 g/dL (11.5-15.3); Lymphocytes # 1.4 10^3/uL (0.8-4.8); Lymphocytes % 22.2 %; Mean Corpuscular HGB Conc 34.5 g/dL (30.0-36.0); Mean Corpuscular Hemoglobin 32.3 pg (28.0-34.0); Mean Corpuscular Volume 93.7 fL (81-99); Mean Platelet Volume 11.2 fL (7.4-10.4); Monocytes # 0.5 10^3/uL (0.2-0.9); Monocytes % 8.1 %; Neutrophils # 4.08 10^3/uL (1.8-7.7); Neutrophils % 64.7 %; Nucleated Red Blood Cells % 0 %; Platelet Count 233 10^3/cmm (130-400); Red Blood Count 3.34 10^6/uL (4.1-5.3); Red Cell Distribution Width 12.6 % (12.1-15.1); White Blood Count 6.3 10^3/uL (4.0-10.0)
[2020-04-01 01:35] LABS: INR 0.99 (0.8-1.2); Partial Thromboplastin Time 31.1 SECONDS (23.9-36.7)
[2020-04-01 01:37] LABS: D Dimer 0.64 ug/mIFEU (0-0.59)
[2020-04-01 01:40] LABS: Alanine Aminotransferase 12 U/L (0-33); Albumin Level 3.3 g/dL (3.5-5.2); Alkaline Phosphatase 118 IU/L (35-105); Blood Urea Nitrogen 34 mg/dL (6-20); Calcium 9.8 mg/dL (8.5-10.5); Carbon Dioxide 27 mmol/L (22-29); Chloride 90 mmol/L (98-107); Glomerular Filtration Rate 5.3 mL/min (90-130); Glucose 245 mg/dL (65-115); Lactate (Lactic Acid level) 2.1 mmol/L (0.5-2.2); Osmolality Calculated 286 mOsm/kg (285-295); Sodium 130 mmol/L (136-145); Total Bilirubin 0.4 mg/dL (0.15-1.2); Total Protein 6.3 g/dL (6.6-8.7)
[2020-04-01 01:42] LABS: Anion Gap 16.3 (5-19); Aspartate Amino Transferase 13 U/L (0-32); Potassium 3.3 mmol/L (3.5-5.1)
[2020-04-01 01:44] LABS: Troponin(5th) Baseline 123 ng/L (0-10)
[2020-04-01] MEDS: aspirin 81 mg Chew Tablet 324 MG (02:02)
[2020-04-01] MEDS: metoprolol tartrate 1 mg/1 mL SDV 5 mL 2.5 MG IV (02:03)
--- NOTE | 2020-04-01 03:18 | ECG_ITS ---
[facility] Test Date: 2020-04-01 Pat Name: Rizwana Herzog Department: Room: Gender: Female Intern Product Marketing Manager: : 1965 Requested By: Linda Cortes Order Number: [id number] Catherine MD: Soraya Ignacio M.D. Measurements Intervals [place] Rate: 117 P: 263 NC: 224 QRS: -60 QRSD: 90 T: -85 QT: 385 QTc: 539 Interpretive Statements ECTOPIC ATRIAL TACHYCARDIA WITH FIRST DEGREE AV BLOCK POSSIBLE LEFT ATRIAL ENLARGEMENT [-0.1mV P WAVE IN V1/V2] LEFT AXIS DEVIATION [QRS AXIS < -30] INFERIOR MYOCARDIAL INFARCTION , OF INDETERMINATE AGE [40+ ms Q WAVE AND/OR ST/T ABNORMALITY IN II/aVF] ANTEROLATERAL MYOCARDIAL INFARCTION , OF INDETERMINATE AGE [40+ ms Q WAVE IN I/aVL/V3-V6] Compared to ECG 04/01/2020 01:00:57 First degree AV block now present T-wave abnormality no longer present Possible ischemia no longer present Myocardial infarct finding still present Electronically Signed On 04-02-2020 7:38:50 CDT by Soraya Ignacio M.D. [id number]
--- NOTE | 2020-04-01 03:55 | P.HP_ITS ---
Providers/Chief Complaint Primary Care Provider: Yovany Leonardo MD Chief Complaint: cp History of Present Illness Rizwana Herzog is a 55 year old female who is peritoneal dialysis dependent end-stage renal disease, has established coronary disease PCI stent LAD 2018, diabetic peripheral vascular disease status post right BKA came in today with chief complaint of chest pain. Patient is stating that her chest discomfort which she describing as sharp pain, started during her dialysis, this pain was radiating towards her left shoulder and left arm, 03/16, she took 1 sublingual nitroglycerin which relieved her symptoms, she did not finish her dialysis because of this discomfort and came to the ER. Of note, on previous visit patient was noted to have bradycardia in the ER, AV gauri blocking agent was discontinued. Her symptoms are associated with shortness of breath and nausea, she is denying vomiting, palpitations. Before arrival to the ED she has taken aspirin and nitroglycerin. At the time of evaluation her systolic blood pressure was soft in low 100s, heart rate in 90s now, no active chest pain, very drowsy at this point attributing to sleep deprivation, she has been given IV metoprolol which brought her heart rate and systolic blood pressure down. Review of Systems Const: Reports: fatigue; Denies: fever(s) or chills Eyes: Denies: change in vision ENMT: Denies: throat pain Card: Reports: chest pain, swelling of feet/ankles, lightheadedness, dyspnea on exertion and orthopnea Resp: Reports: dyspnea GI: Reports: nausea; Denies: abdominal pain or vomiting : Denies: flank pain Musc: Reports: extremity pain and joint stiffness; Denies: neck pain Skin/Breast: Reports: lesions Neuro: Denies: headache(s) Psych: Reports: anxiety and depression Endo: Denies: polyuria Refugio/Lymph: Denies: easy bruising All/Imm: Denies: urticaria Medications/Allergies Home Medications Medication Instructions Recorded Confirmed Last Taken Type aspirin 81 mg PO DAILY 06/25/19 02/26/20 02/15/20 History multivitamin [Multiple Vitamins] 1 tab PO DAILY 06/30/19 02/26/20 02/15/20 History paricalcitol [Zemplar] See Rx Instructions .ROUTE .COMPLEX 06/30/19 02/26/20 0 01/31/20 History ferric citrate 210 mg iron tablet See Rx Instructions .ROUTE 04/01/20 09/21/20 09/10/20 History .COMPLEX tab levothyroxine 112 mcg tablet 224 mcg PO DAILY #30 tab 12/11/19 02/26/20 02/15/20 Rx cholecalciferol (vitamin D3) 25 mcg PO DAILY 01/17/20 02/26/20 02/15/20 History [Vitamin D3] coenzyme Q10 [CoQ-10] 100 mg PO DAILY 01/17/20 02/26/20 02/15/20 History omega 8-cxf-uxr-fish oil [Fish Oil] 1 cap PO DAILY 01/17/20 02/26/20 02/15/20 History Drizalma Sprinkle 40 mg PO DAILY 01/31/20 02/26/20 02/15/20 History brimonidine See Rx Instructions .ROUTE .COMPLEX 01/31/20 02/26/20 02/15/20 History dorzolamide-timolol See Rx Instructions .ROUTE .COMPLEX 01/31/20 02/26/20 02/15/20 History latanoprost See Rx Instructions .ROUTE .COMPLEX 01/31/20 02/26/20 02/15/20 History Lantus Solostar U-100 Insulin 50 unit SUBCUT BEDTIME #15 ml 02/07/20 02/26/20 02/15/20 Rx pantoprazole 40 mg PO DAILY 02/16/20 02/26/20 02/15/20 History nitroglycerin 0.4 mg sublingual 0.4 mg SUBLINGUAL Q5M PRN #25 tab 03/26/20 03/26/20 Unknown Rx tablet atorvastatin 40 mg tablet 40 mg PO DAILY #30 tab 03/27/20 Unknown Rx Allergies Allergy/AdvReac Type Severity Reaction Status Date / Time metformin [From Glucophage] Allergy Severe Unknown Verified 04/01/20 01:04 venlafaxine [From Effexor] Allergy Severe ADR-Shakine Verified 04/01/20 01:04 ss PFSH Acute PFSH: Medical History Anxiety CAD (coronary artery disease) Chronic diastolic CHF (congestive heart failure) Chronic kidney disease, stage V On peritoneal dialysis. Follows with Dr Ann. Claustrophobia Depression Diabetes Insulin-dependent ESRD (end stage renal disease) Gastroparesis GERD (gastroesophageal reflux disease) HTN (hypertension) Hyperlipidemia Hypothyroidism Partial nontraumatic amputation of left foot (~06/2019) Peripheral vascular disease TIA (transient ischemic attack) Vitamin D deficiency Surgical History History of appendectomy History of heart artery stent History of hysterectomy History of left heart catheterization History of right below knee amputation Peritoneal dialysis catheter in place S/P cholecystectomy S/P PICC central line placement Status post amputation of toe Family History Denies family history of CAD (coronary artery disease) Clotting disorder Dementia Bleeding disorder Social History Smoking and tobacco status: never smoked Alcohol intake: never Household members: spouse and family History of recent travel: No Vitals/I&O/Wt Last Vital Signs Temp 97.8 F 04/01/20 00:57 Pulse 99 04/01/20 03:30 Resp 17 04/01/20 03:30 BP 93/61 04/01/20 03:30 Pulse Ox 99 04/01/20 03:30 Weight last 48 hrs Weight 95.254 kg Physical Exam Narrative: EXAM NARRATIVE: Patient was laying comfortably entered the room Obese female appears more than stated age Heart rate fluctuating between 95-100 S1, S2 without active signs of severe fluid overload Distended abdomen, peritoneal dialysis catheter in situ without any bleeding or drainage around it Neurologically nonfocal exam Awake alert oriented x3 GCS 15 Granulation tissue left lower extremity without acute exacerbation No respiratory distress Appropriate mood and affect No active chest discomfort, however her chest discomfort is reproducible Data : 04/01/20 01:15 04/01/20 01:15 A&P Assessment and plan (1) Unstable angina: Status: Acute (2) DOROTEO on CPAP: Status: Acute (3) CAD (coronary artery disease): Status: Chronic Qualifiers: Associated angina: without angina Coronary Disease-Associated Artery/Lesion type: [place] artery [place] vs. transplanted heart: [place] heart Qualified Code(s): I25.10 - Atherosclerotic heart disease of [place] coronary artery without angina pectoris (4) Chronic kidney disease, stage V: Status: Chronic (5) Peripheral vascular disease: Status: Acute Additional A&P Information Unstable angina Typical chest pain started at rest, substernal relieved with nitro, lasting more than 30 minutes, troponin greater than 100, established coronary disease PCI LAD N.p.o., Lexiscan stress test, EKG without ischemic or infarctive changes, nonspecific ST changes, atrial tachycardia heart rate 117 Would not repeat echo as it was done recently High D-dimer and tachycardia, will get VQ scan to rule out PE Atrial tachycardia Patient had bradycardic and presyncopal event in the ER on last admission hence AV gauri blocking agent was discontinued She was on metoprolol succinate 25 mg twice a day, I would use low-dose Metro prolol tartrate twice a day for now which I would start after Lexiscan stress test Peritoneal dialysis dependent, end-stage renal disease Patient stopped her dialysis last night secondary to chest pain, Hypokalemic 3.3: We will give her 20 mEq of potassium Sleep apnea, auto CPAP overnight Peripheral vascular disease no acute exacerbation status post balloon angioplasty left foot with good granulation healing wound Type 2 diabetes, consistent carb renal dialysis diet after stress test Full code DVT prophylaxis Heparin N.p.o. after midnight Attestations Medical Necessity Statement*: Anticipating discharge in less than 2 midnights currently need Lexiscan stress test to rule coronary ischemia for her chest pain Time Spent in Patient Care: (>than 50% of time spent in counselling and/or direct pt care on unit) . 30mins Coding Level of Care Code Acute Dental Technology Advisor for Chg Fwd Diagnoses Unstable angina I20.0 DOROTEO on CPAP G47.33; Z99.89 CAD (coronary artery disease) I25.10 Associated angina: without angina Coronary Disease-Associated Artery/Lesion type: [place] artery [place] vs. transplanted heart: [place] heart Chronic kidney disease, stage V N18.5 Peripheral vascular disease I73.9
--- NOTE | 2020-04-01 04:16 | PC.NURSE ---
Dr Ambriz notified. Will monitor. Pt reports this has been happening at home as well.
[2020-04-01 04:32] LABS: Troponin 5 2HR Delta -4.6 ABS# (0-10)
[2020-04-01 04:33] LABS: Troponin 5 2HR 118.4 ng/L (0-10)
--- NOTE | 2020-04-01 04:33 | PC.NURSE ---
Troponin 118.[address] Ambriz
--- NOTE | 2020-04-01 04:57 | NMCV_ITS ---
NM sheng perf SPECT r/s* [id number] Rizwana Herzog Age: 55 Gender: F : 1965 Exam Date: 04/01/2020 10:17 Ordering Phys: Daksha Burdick MD Technologist: ANIYAH Christie Exam Location: [facility] Indications: Chest pain STRESS TEST Please see separate stress test report in [facility] for full findings IMAGE PROTOCOL Rest/Stress 1 Lexiscan Day Radiopharmaceutical Dose (mCi) Administration Site Administered by Rest: Tc-99m 11.0 IV Stormy Lauyrn, SENIOR ORACLE DBA Sestamibi Stress:Tc-99m 32.9 IV Stormy Lauryn, SENIOR ORACLE DBA Sestamibi Rest: 01-Apr-2020 60 Discovery 630 Stress: 01-Apr-2020 60 Discovery 630 0.4mg Lexiscan. Supine position only as patient was unable to lay prone. SPECT RESULTS Technical Quality: Good Raw Data Analysis: Breast attenuation, Soft tissue attenuation Image Corrections: No attenuation or motion correction applied Summed Stress Score: 7 Summed Rest Score: 5 Summed Difference Score: 2 PERFUSION FINDINGS Medium-sized area of mild reversibility noted in distal lateral wall. In the absence of wall motion abnormality and prone images could be artifact. FUNCTIONAL RESULTS (calculated via Gated SPECT) Stress Image LV EF (%): 64 Stress EDV (mL):72 TID: 1.03 Stress ESV (mL):26 Rest Image LV EF (%): 64 FUNCTIONAL FINDINGS: There is normal left ventricular systolic function. IMPRESSIONS This study is negative for ischemia. In the absence of prone images cannot rule out artifact. There is no wall motion abnormality. EKG segment will be documented separately. Daksha Delcid MD (Electronically Signed) Final Date: 01 April 2020 14:18 S
[2020-04-01] MEDS: heparin 5,000 unit/mL INJ 1 mL 5000 UNIT SUBCUT ×3 (05:39→21:57)
--- NOTE | 2020-04-01 05:43 | PC.NURSE ---
Patient arrived to the floor from the ED after report was received via phone. Patient is alert and oriented. Patient has been oriented to her room and has call light within reach. Patient states she does not have any pain, nausea, or any other complaints at this time. Patient was placed on 2 L NC due to oxygen saturation maintaining 80s percent. Will monitor. Unable to verify med rec at this time. Patient does not have a med list with her and does not know them.
[2020-04-01] MEDS: potassium chloride ER 10 mEq Tablet 40 MEQ PO (05:58)
--- NOTE | 2020-04-01 06:00 | ECG_ITS ---
[facility] Test Date: 2020-04-01 Pat Name: Rizwana eHrzog Department: Room: 106 Gender: Female Bobbin Loose End Finder: Zuleima Clint : 1965 Requested By: Ariel Burdick Order Number: [id number] Reading MD: ARIEL TUCKER Interpretive Statements NAME OF STUDY: LEXISCAN SESTAMIBI STRESS TEST INDICATION: Chest Pain, NOTE: Please note that this is the electrocardiogram portion of the Lexiscan/Sestamibi stress test. The perfusion scan will be documented separately. DATA: Baseline heart rate was 63 beats per minute. Baseline blood pressure was 87/56 millimeters of mercury. Target heart rate was 164. Maximum heart rate achieved was 146. which was 89 % of the predicted target heart rate. Maximum blood pressure was 169/94 millimeters of mercury. The reason for ending the test was completion of the protocol. The patient did not experience any symptoms. ELECTROCARDIOGRAM: BASELINE: Sinus bradycardia. Low QRS complex, normal axis. Otherwise, poor R wave progression most likely due to lead placement EXERCISE: After Lexiscan injection, no ST-T changes suggestive of ischemic noted. No arrhythmia noted. CONCLUSION: Please note due to baseline abnormality of the EKG specificity and sensitivity of the EKG portion of LexiScan MIBI stress test will be low 1. EKG not suggestive of ischemia 2. Lexiscan injection unremarkable. 3. Perfusion scan will be documented separately. Electronically Signed On 04-05-2020 17:55:40 CDT by ARIEL TUCKER [id number]
[2020-04-01 06:29] LABS: Thyroid Stimulating Hormone 0.67 uIU/mL (0.27-4.20)
[2020-04-01 06:36] LABS: Glucose Point of Care 233 mg/dL (70-110)
--- NOTE | 2020-04-01 07:18 | ECG_ITS ---
[facility] Test Date: 2020-04-01 Pat Name: Rizwana Herzog Department: Room: 106 Gender: Female Claims Attorney: : 1965 Requested By: Linda Cortes Order Number: [id number] Catherine MD: Soraya Ignacio M.D. Measurements Intervals Vida Rate: 94 P: 265 LA: 184 QRS: -57 QRSD: 84 T: -87 QT: 400 QTc: 502 Interpretive Statements ECTOPIC ATRIAL RHYTHM WITH FREQUENT SUPRAVENTRICULAR PREMATURE COMPLEXES LEFT AXIS DEVIATION [QRS AXIS < -30] POSSIBLE ANTERIOR MYOCARDIAL INFARCTION , OF INDETERMINATE AGE [30 ms Q WAVE IN V3/V4, OR R < 0.2 mV IN V4] INFERIOR MYOCARDIAL INFARCTION , OF INDETERMINATE AGE [40+ ms Q WAVE AND/OR ST/T ABNORMALITY IN II/aVF] Compared to ECG 04/01/2020 01:55:41 Ectopic atrial rhythm now present First degree AV block no longer present Myocardial infarct finding still present Electronically Signed On 04-02-2020 7:38:29 CDT by Soraya Ignacio M.D. [id number]
[2020-04-01 08:15] LABS: Troponin 5 6HR 114.7 ng/L (0-10); Troponin 5 6HR Delta -8.3 ng/L (0-12)
[2020-04-01] MEDS: atorvastatin 40 mg Tablet PO (08:54)
[2020-04-01] MEDS: dorzolamide/timolol Op Soln 10 mL Btl EYE-LEFT ×2 (08:55→17:37)
[2020-04-01] MEDS: aspirin 81 mg Chew Tablet PO (08:55)
[2020-04-01] MEDS: pantoprazole DR 40 mg Tablet PO (08:56)
[2020-04-01] MEDS: levothyroxine 112 mcg Tablet 224 MCG PO (08:56)
--- NOTE | 2020-04-01 09:50 | PC.NURSE ---
pt resting in bed, tele nephrology in room. dr to put in orders for pd. call light within reach, will continue to monitor.
--- NOTE | 2020-04-01 09:58 | PC.CHAP ---
Pastoral Care Encounter/Spiritual Assessment Type of Contact [] Declined sleeping car service attendant visit [] Patient/Family/Request visit [] Outpatient visit [] Follow-up visit [] Physician referral [] Code/Alert [] Routine visit [] Staff referral [] Actively dying [x] Patient sleeping [] Family support [] [] Out of room [] Palliative care [] [] Receiving care in room [] Pre-surgical visit [] Trauma [] Long length of stay [] ICU visit [] Other: Relational/Emotional Strength [] Patient feels connected with others/family/visitors/staff [] Distress [] Loneliness/isolation [] Abandonment Spirituality of Patient [] Person of Talya [] Attends Orthodox of their [place]a [] Believes in Prayer [] Reads Bible or Catholic materials [] There are Spiritual issues to be addressed Retirement Actuary Interventions [x] Prayer [] Active listening [] Non-anxious presence [] Spiritual/emotional support [] Crisis/trauma care [] Spiritual counseling [] Bereavement support [] Provided bereavement packet [] Provided Bible/devotional materials [] Provided toy/stuffed animal, coloring book to patient or family member [] Provided Communion [] Anointing/[place] [] Salvation [x] Completed spiritual assessment [] Other: Impact on Illness or Injury [] Angry [] Fearful [] Anxious [] Often cries [] Exhaustion [] Unable to work [] Unable to attend moravian [] Unable to walk/stand [] Unable to read [] Unable to drive [] Unable to eat/drink [] Unable to sleep [] Unable to be with family [] Patient intubated [] Other: Summary Time spent with patient
--- NOTE | 2020-04-01 10:25 | PC.NURSE ---
pt off floor to stess test.
--- NOTE | 2020-04-01 10:27 | PM.CONSULT ---
Providers/Reason For Consult Consulting Physican/Specialty*: Ashleigh Scruggs DO, telenephrology Reason for Consult*: ESRD on peritoneal dialysis Attending Physician: Luis F Ventura MD Primary Care Provider: Yovany Leonardo MD History of Present Illness History of Present Illness Rizwana Herzog is a 55 year old female who presented for evaluation of chest pain, releived with SL NTG and ASA. She reports abdominal pain she feels is related to cough and vomiting. Denies cloudy PD fluid. No bowel or urine complaints. Normal PD rx is cycler, 3 x 2.5% exchanges with 1 icodextrin dwell during day. Review of Systems Const: Reports: fatigue Card: Denies: chest pain Resp: Denies: dyspnea Meds/Allergies Home Medications and Allergies Home Medications Medication Instructions Recorded Confirmed Last Taken Type aspirin 81 mg PO DAILY 06/25/19 02/26/20 02/15/20 History multivitamin [Multiple Vitamins] 1 tab PO DAILY 06/30/19 02/26/20 02/15/20 History paricalcitol [Zemplar] See Rx Instructions .ROUTE .COMPLEX 06/30/19 02/26/20 01/31/20 History ferric citrate 210 mg iron tablet See Rx Instructions .ROUTE 09/06/19 02/26/20 02/15/20 History .COMPLEX tab levothyroxine 112 mcg tablet 224 mcg PO DAILY #30 tab 12/11/19 02/26/20 02/15/20 Rx cholecalciferol (vitamin D3) 25 mcg PO DAILY 01/17/20 02/26/20 02/15/20 History [Vitamin D3] coenzyme Q10 [CoQ-10] 100 mg PO DAILY 01/17/20 02/26/20 02/15/20 History omega 7-ghj-cit-fish oil [Fish Oil] 1 cap PO DAILY 01/17/20 02/26/20 02/15/20 History Drizalma Sprinkle 40 mg PO DAILY 01/31/20 02/26/20 02/15/20 History brimonidine See Rx Instructions .ROUTE .COMPLEX 01/31/20 02/26/20 02/15/20 History dorzolamide-timolol See Rx Instructions .ROUTE .COMPLEX 01/31/20 02/26/20 02/15/20 History latanoprost See Rx Instructions .ROUTE .COMPLEX 0802/26/20 02/15/20 History Lantus Solostar U-100 Insulin 50 unit SUBCUT BEDTIME #15 ml 02/07/20 02/26/20 02/15/20 Rx pantoprazole 40 mg PO DAILY 02/16/20 02/26/20 02/15/20 History nitroglycerin 0.4 mg sublingual 0.4 mg SUBLINGUAL Q5M PRN #25 tab 03/26/20 03/26/20 Unknown Rx tablet atorvastatin 40 mg tablet 40 mg PO DAILY #30 tab 03/27/20 Unknown Rx Allergies Allergy/AdvReac Type Severity Reaction Status Date / Time metformin [From Glucophage] Allergy Severe Unknown Verified 04/01/20 06:19 venlafaxine [From Effexor] Allergy Severe ADR-Shakine Verified 04/01/20 06:19 ss Current Medications Current Medications Generic Name Dose Route Start Last Admin Trade Name Freq PRN Reason Stop Dose Admin Aspirin 81 mg 04/01/20 09:00 04/01/20 08:55 Aspirin Chewable PO 81 mg DAILY JERSON Administration Atorvastatin Calcium 40 mg 04/01/20 09:00 04/01/20 08:54 Lipitor PO 40 mg DAILY JERSON Administration Dorzolamide/Timolol 0 drop 04/01/20 09:00 04/01/20 08:55 Cosopt EYE-LEFT 1 drop BID JERSON Administration Heparin Sodium (Beef Lung) 5,000 unit 04/01/20 04:57 04/01/20 05:39 Heparin SUBCUT 5,000 unit Q8H JERSON Administration Insulin Aspart 0 unit 04/01/20 08:00 04/01/20 08:55 Novolog SUBCUT 6 unit WM&BEDTIME JERSON Administration Protocol Levothyroxine Sodium 224 mcg 04/01/20 09:00 04/01/20 08:56 Synthroid PO 224 mcg DAILY JERSON Administration Pantoprazole Sodium 40 mg 04/01/20 09:00 04/01/20 08:56 Protonix PO 40 mg DAILY JERSON Administration PFSH Acute PFSH: Medical History Anxiety CAD (coronary artery disease) Chronic diastolic CHF (congestive heart failure) Chronic kidney disease, stage V On peritoneal dialysis. Follows with Dr Ann. Claustrophobia Depression Diabetes Insulin-dependent ESRD (end stage renal disease) Gastroparesis GERD (gastroesophageal reflux disease) HTN (hypertension) Hyperlipidemia Hypothyroidism Partial nontraumatic amputation of left foot (~06/2019) Peripheral vascular disease TIA (transient ischemic attack) Vitamin D deficiency Surgical History History of appendectomy History of heart artery stent History of hysterectomy History of left heart catheterization History of right below knee amputation Peritoneal dialysis catheter in place S/P cholecystectomy S/P PICC central line placement Status post amputation of toe Family History Denies family history of CAD (coronary artery disease) Clotting disorder Dementia Bleeding disorder Social History Smoking and tobacco status: never smoked Alcohol intake: never Household members: spouse and family History of recent travel: No Vitals/I&O/Wt Last Vital Signs Temp 97.7 F 04/01/20 07:32 Pulse 83 04/01/20 07:32 Resp 16 04/01/20 07:32 BP 94/67 04/01/20 07:32 Pulse Ox 99 04/01/20 07:32 Weight last 48 hrs Weight 95.254 kg Physical Exam Const: COMMON NORMALS: no acute distress NUTRITIONAL APPEARANCE: obese Eye: COMMON NORMALS: no scleral icterus Extremity: NARRATIVE EXTREMITY EXAM: right BKA GENERAL: No edema Skin: NARRATIVE SKIN EXAM: PD catheter exit site no redness or drainage Data Labs: Other Labs: calcium 9.8, albumin 3.3 Other Data: Other data: CXR unremarkable A&P Additional A&P Information Impression: 1. ESRD on peritoneal dialysis. Abdominal pain. R/O peritonities 2. Hypokalemia 3. Mild hyponatremia 4. Diabetes Plan: PD fluid cell count and culture. Resume PD all 2.5%, 2L exchanges, QID. Gentamicin ointment to exit site. Replace KCl. Consult Attestations Medical Necessity Statement: per primary service Time Spent in Patient Care: Greater than 35 minutes Coding Level of Care Code Acute Senior Instrumentation Engineer for Maris Braden
[2020-04-01] MEDS: regadenoson 0.4 Mg/5 ml Syringe IVP (11:06)
--- NOTE | 2020-04-01 11:55 | PM.PN ---
Subjective Subjective: Interval history: Rizwana is very sleepy this morning. When I awakened her, she seemed to answer questions appropriately. She denied any current chest discomfort. Medications: Reviewed: Yes Vitals/I&O/Wt Last Vital Signs Temp 97.7 F 04/01/20 07:32 Pulse 73 04/01/20 11:06 Resp 16 04/01/20 07:32 BP 156/94 04/01/20 11:06 Pulse Ox 99 04/01/20 07:32 Weight last 48 hrs Weight 95.254 kg Physical Exam Narrative: EXAM NARRATIVE: General exam is no apparent distress Cardiovascular regular rate and rhythm without murmur Lungs clear Abdomen is soft with positive bowel sounds. Nontender. Peritoneal dialysis catheter is noted. Extremities no cyanosis clubbing or edema, right leg amputation noted. Data : 04/01/20 01:15 04/01/20 01:15 A&P Assessment and plan (1) Unstable angina: This is atypical. However, patient reports it was relieved with nitroglycerin. She states that nuclear stress tests are not usually relevant for her. Last angiogram around 1 year ago, LAD stent. She describes what sounds like distal disease not amenable to intervention. Troponin was elevated, but no significant delta. This can be seen in end-stage renal disease. Status: Acute (2) DOROTEO on CPAP: Status: Acute (3) CAD (coronary artery disease): With history of previous coronary stenting. Continue aspirin, statin, low-dose beta-chyna Cardiology consultation Nuclear stress test is already been ordered, and appropriate if patient will allow. Previous echo done in late January demonstrated normal EF, 2/4 diastolic dysfunction Request records from old angiogram Status: Chronic Qualifiers: Coronary Disease-Associated Artery/Lesion type: [place] artery [place] vs. transplanted heart: [place] heart Associated angina: without angina Qualified Code(s): I25.10 - Atherosclerotic heart disease of [place] coronary artery without angina pectoris (4) Chronic kidney disease, stage V: Nephrology consult for providing peritoneal dialysis orders Status: Chronic (5) Peripheral vascular disease: Status: Acute Additional A&P Information Secondary to sharp nature of chest discomfort, elevated D-dimer, tachycardia on presentation a ventilation/perfusion scan was also ordered. Hypokalemia, supplemented on admission History of sleep apnea, on CPAP Type 2 diabetes. Sliding scale insulin, long-acting insulin Full code Heparin for DVT prophylaxis Attestations Medical Necessity Statement*: Needs continued hospitalization for evaluation of chest discomfort with nuclear stress test. May require conversion to full admission depending upon further work-up if needed. Coding Level of Care Code Acute Time Broker for Chg Fwd Diagnoses Unstable angina I20.0 DOROTEO on CPAP G47.33; Z99.89 CAD (coronary artery disease) I25.10 Coronary Disease-Associated Artery/Lesion type: [place] artery [place] vs. transplanted heart: [place] heart Associated angina: without angina Chronic kidney disease, stage V N18.5 Peripheral vascular disease I73.9
--- NOTE | 2020-04-01 12:39 | PC.NURSE ---
pt back from stress test. hooked up to monitors, call light within reach, will continue to monitor.
[2020-04-01 12:46] LABS: Glucose Point of Care 137 mg/dL (70-110)
[2020-04-01] MEDS: potassium chloride ER 10 mEq Tablet 20 MEQ PO (12:52)
[2020-04-01] MEDS: metoprolol tartrate 25 mg Tablet 12.5 MG PO ×2 (12:53→17:37)
[2020-04-01] MEDS: Dianeal low Ca w/2.5% dex 2,000 mL Bag 2000 ML INTRAPERIT ×2 (13:04→20:29)
--- NOTE | 2020-04-01 13:18 | PC.NURSE ---
pt hooked up to pd, pt is draining at this time. will collect sample after draining is complete and start reinstalling fluids. call light within reach, will continue to monitor.
[2020-04-01 15:43] LABS: Mononuclear #, Pertinoneal Fl 0.007 10^3/uL
--- NOTE | 2020-04-01 15:48 | PC.NURSE ---
1400 pt draining from pd port. 1430 pt reinstilled. pt unhooked and cap placed on port. will continue to let solution dwell for 6 hours. call light in reach, will continue to monitor.
--- NOTE | 2020-04-01 15:50 | PC.NURSE ---
dr arellano notified of pt not being in room during the scheduled time for pd. gave order to change pd to 4 times a day instead of AC and Bedtime.
[2020-04-01 16:19] LABS: Appearance, Peritoneal Fluid Clear (Clear); Color, Peritoneal Fluid Colorless (Pale Yellow)
[2020-04-01 16:20] LABS: Pathology Referral Yes; RBC Pertioneal Fluid 0 10^3/uL; WBC Peritoneal Fluid 7 /uL
[2020-04-01 16:36] LABS: Glucose Point of Care 251 mg/dL (70-110)
--- NOTE | 2020-04-01 19:38 | P.CONIM_ITS ---
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 Today she underwent stress test which did not show significant i schemia. We have been asked to assess and advise further. When I saw the patient she says she had this episode only and had no more prior chest pains. She denies any PND orthopnea. She admits to palpitation. On admission she was tachycardic but in regular atrial rhythm controlled with beta-chyna. Review of Systems General: Reports: 10 or more systems reviewed and unremarkable except in HPI and below Const: Reports: fatigue; Denies: fever(s), chills or diaphoresis Eyes: Denies: change in vision, blurry vision, photophobia or eye redness ENMT: Denies: throat pain, enlarged tonsils, dental pain or disequilibrium Card: Reports: swelling of feet/ankles, lightheadedness, dyspnea on exertion and orthopnea; Denies: chest pain, palpitations or irregular heart rhythm Resp: Reports: pain on inspiration; Denies: dyspnea, productive cough or wheezing GI: Reports: nausea and early satiety; Denies: abdominal pain, vomiting or heartburn : Denies: flank pain, difficulty voiding or dysuria Musc: Reports: extremity pain, joint stiffness and muscle weakness (chronic from peritoneal dialysis); Denies: neck pain or back pain Skin/Breast: Reports: lesions; Denies: rash or pruritus Neuro: Reports: weakness in extremities (chronic), difficulty walking (due to RLE amputation) and vertigo; Denies: headache(s) or behavioral changes Psych: Reports: anxiety and depression; Denies: hopelessness or irritability Endo: Denies: polyuria Refugio/Lymph: Denies: easy bruising All/Imm: Denies: urticaria or acute wheezing Meds/Allergies Home Medications and Allergies Home Medications Medication Instructions Recorded Confirmed Last Taken Type aspirin 81 mg PO DAILY 06/25/19 02/26/20 02/15/20 History multivitamin [Multiple Vitamins] 1 tab PO DAILY 06/30/19 02/26/20 02/15/20 History paricalcitol [Zemplar] See Rx Instructions .ROUTE .COMPLEX 06/30/19 02/26/20 01/31/20 History ferric citrate 210 mg iron tablet See Rx Instructions .ROUTE 09/06/19 02/26/20 02/15/20 History .COMPLEX tab levothyroxine 112 mcg tablet 224 mcg PO DAILY #30 tab 12/11/19 02/26/20 02/15/20 Rx cholecalciferol (vitamin D3) 25 mcg PO DAILY 01/17/20 02/26/20 02/15/20 History [Vitamin D3] coenzyme Q10 [CoQ-10] 100 mg PO DAILY 01/17/20 02/26/20 02/15/20 History omega 7-eoc-jjv-fish oil [Fish Oil] 1 cap PO DAILY 01/17/20 02/26/20 02/15/20 History Drizalma Sprinkle 40 mg PO DAILY 01/31/20 02/26/20 02/15/20 History brimonidine See Rx Instructions .ROUTE .COMPLEX 01/31/20 02/26/20 02/15/20 History dorzolamide-timolol See Rx Instructions .ROUTE .COMPLEX 01/31/20 02/26/20 02/15/20 History latanoprost See Rx Instructions .ROUTE .COMPLEX 01/31/20 02/26/20 02/15/20 History Lantus Solostar U-100 Insulin 50 unit SUBCUT BEDTIME #15 ml 02/07/20 02/26/20 02/15/20 Rx pantoprazole 40 mg PO DAILY 02/16/20 02/26/20 02/15/20 History nitroglycerin 0.4 mg sublingual 0.4 mg SUBLINGUAL Q5M PRN #25 tab 03/26/20 03/26/20 Unknown Rx tablet atorvastatin 40 mg tablet 40 mg PO DAILY #30 tab 03/27/20 Unknown Rx Allergies Allergy/AdvReac Type Severity Reaction Status Date / Time metformin [From Glucophage] Allergy Severe Unknown Verified 04/01/20 06:19 venlafaxine [From Effexor] Allergy Severe ADR-Shakine Verified 04/01/20 06:19 ss Current Medications Current Medications Generic Name Dose Route Start Last Admin Trade Name Freq PRN Reason Stop Dose Admin Aspirin 81 mg 04/01/20 09:00 04/01/20 08:55 Aspirin Chewable PO 81 mg DAILY JERSON Administration Atorvastatin Calcium 40 mg 04/01/20 09:00 04/01/20 08:54 Lipitor PO 40 mg DAILY JERSON Administration Dorzolamide/Timolol 0 drop 04/01/20 09:00 04/01/20 17:37 Cosopt EYE-LEFT 1 drop BID JERSON Administration Gentamicin Sulfate 1 applic 04/01/20 11:00 04/01/20 12:54 Gentamicin Cream TOPICAL 1 applic DAILY JERSON Administration Heparin Sodium (Beef Lung) 5,000 unit 04/01/20 04:57 04/01/20 12:53 Heparin SUBCUT 5,000 unit Q8H JERSON Administration Insulin Aspart 0 unit 04/01/20 08:00 04/01/20 17:37 Novolog SUBCUT 6 unit WM&BEDTIME JERSON Administration Protocol Levothyroxine Sodium 224 mcg 04/01/20 09:00 04/01/20 08:56 Synthroid PO 224 mcg DAILY JERSON Administration Metoprolol Tartrate 12.5 mg 04/01/20 13:00 04/01/20 17:37 Lopressor PO 12.5 mg BID JERSON Administration Ondansetron HCl 4 mg 04/01/20 06:58 04/01/20 11:12 Zofran IVP 4 mg Q2M PRN Administration NAUSEA Pantoprazole Sodium 40 mg 04/01/20 09:00 04/01/20 08:56 Protonix PO 40 mg DAILY JERSON Administration PFSH Acute PFSH: Medical History Anxiety CAD (coronary artery disease) Chronic diastolic CHF (congestive heart failure) Chronic kidney disease, stage V On peritoneal dialysis. Follows with Dr Ann. Claustrophobia Depression Diabetes Insulin-dependent ESRD (end stage renal disease) Gastroparesis GERD (gastroesophageal reflux disease) HTN (hypertension) Hyperlipidemia Hypothyroidism Partial nontraumatic amputation of left foot (~06/2019) Peripheral vascular disease TIA (transient ischemic attack) Vitamin D deficiency Surgical History History of appendectomy History of heart artery stent History of hysterectomy History of left heart catheterization History of right below knee amputation Peritoneal dialysis catheter in place S/P cholecystectomy S/P PICC central line placement Status post amputation of toe Family History Denies family history of CAD (coronary artery disease) Clotting disorder Dementia Bleeding disorder Social History Smoking and tobacco status: never smoked Alcohol intake: never Household members: spouse and family History of recent travel: No Vitals/I&O/Wt Last Vital Signs Temp 97.9 F 04/01/20 15:00 Pulse 68 04/01/20 18:39 Resp 18 04/01/20 15:00 BP 102/59 04/01/20 15:00 Pulse Ox 95 04/01/20 18:39 04/01/20 04/01/20 04/01/20 06:59 14:59 22:59 Intake Total 500 / 500 240 / 740 Output Total 50 / 50 Balance 450 / 450 240 / 690 Weight last 48 hrs Weight 210 lb Physical Exam Narrative: EXAM NARRATIVE: GENERAL: Patient is alert, awake and oriented x3. NECK: No jugular vein distension. HEENT: No cyanosis. No icterus. No pallor. HEART: Regular S1 and S2. No murmur, rub or gallop. LUNGS: Clear to auscultate bilaterally. ABDOMEN: Soft, nontender and nondistended. Positive bowel sounds. No guarding, rebound or tenderness. CENTRAL NERVOUS SYSTEM: Grossly nonfocal. EXTREMITIES: Lower extremities right below the knee amputation, left leg no pulses palpable however foot warm moist with good capillary refill A&P Assessment and plan (1) CAD (coronary artery disease): She has history of coronary artery disease, fifth generation troponin bumped up to 123, in the face of underlying small vessel disease, epicardial disease and diminished renal clearance it appeared to be type II NM. We recommend continuing treating with low-dose beta-chyna and adding isosorbide mononitrate and Plavix to the regimen. Echocardiogram showed no wall motion abnormality and normal left ventricular ejection fraction. I have detailed discussion with the patient and she agrees to it. We will also request reports for prior coronary angiogram. Further plan will be advised after reviewing. For now we will treat her medically Status: Chronic Qualifiers: Coronary Disease-Associated Artery/Lesion type: [place] artery [place] vs. transplanted heart: [place] heart Associated angina: without angina Qualified Code(s): I25.10 - Atherosclerotic heart disease of [place] coronary artery without angina pectoris (2) Chronic diastolic CHF (congestive heart failure): Well compensated continue current regimen Status: Acute (3) ESRD (end stage renal disease): As per nephrology Status: Acute Coding Level of Care Code New Pt Acute Agriculture Engineer for Maris Braden Patient Type New History Detailed Exam Detailed Medical Decision Making Moderate Complexity Diagnoses CAD (coronary artery disease) I25.10 Coronary Disease-Associated Artery/Lesion type: [place] artery [place] vs. transplanted heart: [place] heart Associated angina: without angina Chronic diastolic CHF (congestive heart failure) I50.32 ESRD (end stage renal disease) N18.6
[2020-04-01 20:21] LABS: Glucose Point of Care 275 mg/dL (70-110)
[2020-04-01] MEDS: isosorbide mononitrate 20 mg Tablet PO (21:11)
--- NOTE | 2020-04-01 21:18 | PC.NURSE ---
Dr. Burdick notifed of patient nausea and emesis after PD was done draining. Orders for zofran 4mg Q6 PRN read back verbal order.
--- NOTE | 2020-04-01 21:27 | ECG_ITS ---
[facility] Test Date: 2020-04-01 Pat Name: Rizwana Herzog Department: Room: 106 Gender: Female Turbogenerator Operator: tariq HODGSON: 1965 Requested By: Daksha Burdick Order Number: [id number] Catherine MD: Soraya Ignacio M.D. Measurements Intervals [place] Rate: 67 P: -12 IN: 200 QRS: -48 QRSD: 88 T: 1 QT: 392 QTc: 416 Interpretive Statements SINUS RHYTHM MARKED LEFT AXIS DEVIATION [QRS AXIS < -30] POSSIBLE ANTERIOR MYOCARDIAL INFARCTION [30 ms Q WAVE IN V3/V4, OR R < 0.2 mV IN V4], PROBABLY OLD INFERIOR MYOCARDIAL INFARCTION [40+ ms Q WAVE AND/OR ST/T ABNORMALITY IN II/aVF], PROBABLY OLD Compared to ECG 04/01/2020 03:03:24 Ectopic atrial rhythm no longer present Myocardial infarct finding still present Electronically Signed On 04-02-2020 7:15:31 CDT by Soraya Ignacio M.D. [email or web address]
--- NOTE | 2020-04-01 21:30 | PC.NURSE ---
Patients EKG was sent to the hospitalist to review by RT. Patient threw up was given zofran and stated she felt much better.
[2020-04-01] MEDS: insulin glargine 100 units/1 mL 50 UNIT SUBCUT (21:57)
[2020-04-01 23:38] LABS: Cortisol Random 7.13 ug/mL (2.47-19.5)
[2020-04-02 00:35] VITALS: BP 104/50
[2020-04-02 01:42] LABS: Glucose Point of Care 188 mg/dL (70-110)
[2020-04-02] MEDS: Dianeal low Ca w/2.5% dex 2,000 mL Bag 2000 ML INTRAPERIT (02:14)
[2020-04-02] MEDS: ondansetron 2 mg/ML SDV 2 mL 4 MG IVP (03:38)
[2020-04-02 04:00] VITALS: BP 96/54; PULSE 71; RESP 15; TEMP 36.6; O2SAT 98
[2020-04-02] MEDS: heparin 5,000 unit/mL INJ 1 mL 5000 UNIT SUBCUT ×2 (04:42→12:28)
[2020-04-02 04:59] LABS: Basophils % 0.3 %; Eosinophils # 0.2 10^3/uL (0.0-0.8); Eosinophils % 3.8 %; Hematocrit 27.9 % (37.0-47.0); Hemoglobin 9.3 g/dL (11.5-15.3); Lymphocytes # 0.7 10^3/uL (0.8-4.8); Lymphocytes % 11.6 %; Mean Corpuscular HGB Conc 33.3 g/dL (30.0-36.0); Mean Corpuscular Hemoglobin 32.5 pg (28.0-34.0); Mean Corpuscular Volume 97.6 fL (81-99); Monocytes # 0.4 10^3/uL (0.2-0.9); Monocytes % 6.3 %; Neutrophils # 4.54 10^3/uL (1.8-7.7); Neutrophils % 77.7 %; Nucleated Red Blood Cells % 0 %; Platelet Count 201 10^3/cmm (130-400); Red Blood Count 2.86 10^6/uL (4.1-5.3); Red Cell Distribution Width 12.8 % (12.1-15.1); White Blood Count 5.9 10^3/uL (4.0-10.0)
--- NOTE | 2020-04-02 05:17 | PC.NURSE ---
End of shift: PAtient has rested well this shift. 2 episodes of nausea and 1 episode of emesis. Patient otherwise has slept. Patient remains alert and oriented and vitals are stable.
[2020-04-02 05:35] LABS: Magnesium 1.5 mg/dL (1.7-2.3); Phosphorus 5.5 mg/dL (2.5-4.5)
[2020-04-02 05:36] LABS: Blood Urea Nitrogen 36 mg/dL (6-20); Calcium 9.2 mg/dL (8.5-10.5); Carbon Dioxide 26 mmol/L (22-29); Chloride 96 mmol/L (98-107); Glomerular Filtration Rate 4.9 mL/min (90-130); Glucose 190 mg/dL (65-115); Osmolality Calculated 291 mOsm/kg (285-295); Sodium 134 mmol/L (136-145)
[2020-04-02 05:41] LABS: Anion Gap 16.2 (5-19); Potassium 4.2 mmol/L (3.5-5.1)
[2020-04-02 06:28] LABS: Glucose Point of Care 167 mg/dL (70-110)
--- NOTE | 2020-04-02 07:20 | PC.RESP ---
At 2125 pt had episode of nausea and vomiting when taken off bipap to take a pill. Pt continued to have vomiting episode for 15 minutes. Pt's O2 sat was 94% on room air after nausea/vomiting had passed. Pt was left on room air and NOT placed on bipap due to risk of aspiration. I will place pt on oxygen if her O2 desats during the rest of the night. Physician notified of event.
--- NOTE | 2020-04-02 07:41 | PM.PN ---
Subjective Subjective: Interval history: nausea and vomiting last night. changed CPAP to FM o2 Medications: Reviewed: Yes Medication Review Details: Current Medications Aspirin (Aspirin Chewable) 81 mg PO DAILY [facility] Last Admin: 04/01/20 08:55 Dose: 81 mg Documented by: Atorvastatin Calcium (Lipitor) 40 mg PO DAILY [facility] Last Admin: 04/01/20 08:54 Dose: 40 mg Documented by: Clopidogrel Bisulfate (Plavix) 75 mg PO DAILY [facility] Dextrose (D50w) 25 ml IVP ONCE PRN; Protocol PRN Reason: hypoglycemia protocol Dextrose (D50w) 50 ml IVP PRN PRN; Protocol PRN Reason: hypoglycemia protocol Dorzolamide/Timolol (Cosopt) 0 drop EYE-LEFT BID [facility] Last Admin: 04/01/20 17:37 Dose: 1 drop Documented by: Gentamicin Sulfate (Gentamicin Cream) 1 applic TOPICAL DAILY [facility] Last Admin: 04/01/20 12:54 Dose: 1 applic Documented by: Glucagon (Glucagen) 1 mg IM ONCE PRN; Protocol PRN Reason: Adult Acute Hypoglycemia Prot. Heparin Sodium (Beef Lung) (Heparin) 5,000 unit SUBCUT Q8H [facility] Last Admin: 04/02/20 04:42 Dose: 5,000 unit Documented by: Dextrose (D5w) 500 mls @ 100 mls/hr IV ONCE PRN; Protocol PRN Reason: Adult Acute Hypoglycemia Prot Insulin Aspart (Novolog) 0 unit SUBCUT WM&BEDTIME [facility]; Protocol Last Admin: 04/01/20 21:56 Dose: 8 unit Documented by: Insulin Glargine (Lantus) 50 unit SUBCUT BEDTIME [facility] Last Admin: 04/01/20 21:57 Dose: 50 unit Documented by: Isosorbide Mononitrate (Ismo) 20 mg PO BID [facility] Last Admin: 04/01/20 21:11 Dose: 20 mg Documented by: Levothyroxine Sodium (Synthroid) 224 mcg PO DAILY [facility] Last Admin: 04/01/20 08:56 Dose: 224 mcg Documented by: Metoprolol Tartrate (Lopressor) 12.5 mg PO BID [facility] Last Admin: 04/01/20 17:37 Dose: 12.5 mg Documented by: Nitroglycerin (Nitrostat) 0.4 mg SUBLINGUAL Q5M PRN PRN Reason: Chest Pain Ondansetron HCl (Zofran) 4 mg IVP Q2M PRN PRN Reason: NAUSEA Last Admin: 04/01/20 11:12 Dose: 4 mg Documented by: Ondansetron HCl (Zofran) 4 mg IVP Q6H PRN PRN Reason: NAUSEA AND VOMITING Last Admin: 04/02/20 03:38 Dose: 4 mg Documented by: Pantoprazole Sodium (Protonix) 40 mg PO DAILY [facility] Last Admin: 04/01/20 08:56 Dose: 40 mg Documented by: Peritoneal Dialysis Solution (Dianeal Low Ca W/2.5% Dex) 2,000 ml INTRAPERIT Q6H [facility] Last Admin: 04/02/20 02:14 Dose: 2,000 ml Documented by: Vitals/I&O/Wt Last Vital Signs Temp 98 F 04/02/20 04:00 Pulse 71 04/02/20 04:00 Resp 15 04/02/20 04:00 BP 96/54 04/02/20 04:00 Pulse Ox 98 04/02/20 04:00 04/01/20 04/02/20 04/02/20 22:59 06:59 14:59 Intake Total 640 / 1140 200 / 1340 Output Total 100 / 150 Balance 540 / 990 200 / 1190 Weight last 48 hrs Weight 95.254 kg Physical Exam Narrative: EXAM NARRATIVE: obese lady in bed, BP low. using FM o2 heent- nc/at, eomi neck supple\lung dull bases heart reg, no rub abd soft, nt, ND, +PD catheter extremities- rt bka, left no edema neuro- a,a, o x 3 Data : 04/02/20 04:22 04/02/20 04:22 A&P Additional A&P Information Impression: 1. ESRD on peritoneal dialysis. cont 4 exchanges a day while in hospital. dec to 1.25% gluc bath. on d/c cont CCPD and icodextran -Gentamicin ointment to exit site 2. Abdominal pain. normal PD cell count 3. Mild hyponatremia improving 4. CP and diastolic dysfunction- per cardiology- medical management 5. Diabetes control. I am concerned that she has DM gastroparesis- per hospitalist 6. k normal 7. hgb 9.3- cont epo 8. phos 5.5- binder 9. replace magnesium 10. tsh low- consider dec levothyroxine per medicine 11. cortisol level 7.13- consider cosyntropin stim test- may have partial adrenal insufficiency pt seen w/ RN- telehealth visit. Attestations Medical Necessity Statement*: ESRD, CP- per hospitalist and cardiology Time Spent in Patient Care: 16 - 35 minutes Coding Level of Care Code Acute Kitchen Operator for Maris Braden
[2020-04-02 07:45] VITALS: BP 111/50; PULSE 73; RESP 12; TEMP 37; O2SAT 93
[2020-04-02 08:00] VITALS: BP 103/58; BP 87/53
[2020-04-02] MEDS: sevelamer 800 mg Tablet PO (08:59)
[2020-04-02] MEDS: dorzolamide/timolol Op Soln 10 mL Btl EYE-LEFT (09:00)
[2020-04-02] MEDS: atorvastatin 40 mg Tablet PO (09:01)
[2020-04-02] MEDS: metoprolol tartrate 25 mg Tablet 12.5 MG PO (09:01)
[2020-04-02] MEDS: aspirin 81 mg Chew Tablet PO (09:02)
[2020-04-02] MEDS: pantoprazole DR 40 mg Tablet PO (09:02)
[2020-04-02] MEDS: metoclopramide 10 mg Tablet 5 MG PO (09:02)
[2020-04-02] MEDS: sennosides-docusate Tablet 2 TAB PO (09:02)
[2020-04-02] MEDS: clopidogrel 75 mg Tablet PO (09:02)
[2020-04-02] MEDS: isosorbide mononitrate 20 mg Tablet PO (09:03)
[2020-04-02] MEDS: levothyroxine 112 mcg Tablet 224 MCG PO (09:04)
--- NOTE | 2020-04-02 09:15 | PC.CHAP ---
Pastoral Care Encounter/Spiritual Assessment Type of Contact [] Declined spouting installer visit [] Patient/Family/Request visit [] Outpatient visit [] Follow-up visit [] Physician referral [] Code/Alert [] Routine visit [] Staff referral [] Actively dying [x] Patient sleeping [] Family support [] [] Out of room [] Palliative care [] [] Receiving care in room [] Pre-surgical visit [] Trauma [] Long length of stay [] ICU visit [] Other: Relational/Emotional Strength [] Patient feels connected with others/family/visitors/staff [] Distress [] Loneliness/isolation [] Abandonment Spirituality of Patient [] Person of Talya [] Attends Yarsani of their [place]a [] Believes in Prayer [] Reads Bible or Muslim materials [] There are Spiritual issues to be addressed Event Specialist Product Demonstrator Interventions [x] Prayer [] Active listening [] Non-anxious presence [] Spiritual/emotional support [] Crisis/trauma care [] Spiritual counseling [] Bereavement support [] Provided bereavement packet [] Provided Bible/devotional materials [] Provided toy/stuffed animal, coloring book to patient or family member [] Provided Communion [] Anointing/[place] [] Salvation [x] Completed spiritual assessment [] Other: Impact on Illness or Injury [] Angry [] Fearful [] Anxious [] Often cries [] Exhaustion [] Unable to work [] Unable to attend pentecostalism [] Unable to walk/stand [] Unable to read [] Unable to drive [] Unable to eat/drink [] Unable to sleep [] Unable to be with family [] Patient intubated [] Other: Summary Time spent with patient
[2020-04-02] MEDS: Dianeal low Ca w/1.5% dex 2,000 mL Bag 2000 ML INTRAPERIT (09:23)
[2020-04-02 11:00] VITALS: BP 114/67; PULSE 62; RESP 14; TEMP 36.7; O2SAT 100
[2020-04-02] MEDS: cosyntropin 0.25 mg SDV IVP (11:17)
[2020-04-02 11:26] LABS: Glucose Point of Care 162 mg/dL (70-110)
[2020-04-02 12:07] LABS: Cosyntropin Baseline 14.16 mcg/dL
[2020-04-02 12:51] LABS: Cosyntropin 30 Minute 22.48 mcg/dL
--- NOTE | 2020-04-02 13:19 | P.DS_ITS ---
Discharge Providers Date of Admission: 04/01/20 04:21 Date of Discharge: April 02, 2020 Attending Provider at Admission: Daksha Burdick MD Attending Provider at Discharge: Lusi F Ventura MD Primary Care Provider: Yovany Leonardo MD Diagnoses at Discharge Discharge Diagnosis (1) CAD (coronary artery disease): Status: Chronic Problem details: Nuclear stress test no obvious reversible ischemia done on April 01 Qualifiers: Coronary Disease-Associated Artery/Lesion type: [place] artery [place] vs. transplanted heart: [place] heart Associated angina: without angina Qualified Code(s): I25.10 - Atherosclerotic heart disease of [place] coronary artery without angina pectoris (2) Chronic diastolic CHF (congestive heart failure): Status: Acute Problem details: Compensated currently (3) ESRD (end stage renal disease): Status: Acute Reason for Visit Reason for Visit: cp Hospital Course Hospital Course: Rizwana is a 55-year-old white female who presented to the hospital with chest discomfort. Troponin was elevated, but difficult to interpret in the setting of end-stage renal disease on peritoneal dialysis. She had had relief of her chest pain at home with sublingual nitroglycerin. EKG was nondiagnostic for any acute ischemia. A nuclear stress test was performed which was negative. An echocardiogram recently in January demonstrated a preserved EF with no significant valvular dysfunctions and 2/4 diastolic dysfunction. Patient has a past history of LAD stent. Cardiology was consulted, and believed that addition of Plavix was in order. Imdur was also considered, but ultimately deferred secondary to some lower blood pressures, orthostasis the patient had. She also underwent a cosyntropin stimulation test while in the hospital and there is no evidence of adrenal insufficiency. She had some nausea and vomiting attributed to her gastroparesis. Ultimately Reglan was tried with good results. I discussed with her to use this sparingly before meals, the side effect of dystonia/Parkinson's and that if any movement disorder occur she should stop this immediately. I will give her a limited supply and follow-up with her primary care provider regarding this. Nephrology also followed her while in the hospital to provide peritoneal dialysis. She had no evidence clinically of a pulmonary embolism and no imaging for this was done. Peritoneal fluid was analyzed while in the hospital and no evidence of peritonitis. By time of discharge she was alert, ready for discharge. Physical Exam Narrative: EXAM NARRATIVE: General exam no apparent distress Cardiovascular regular rate and rhythm Lungs clear Abdomen soft nontender with positive bowel sounds. Peritoneal dialysis catheter is noted Extremities no cyanosis clubbing nor edema. Amputation noted Discharge Data Data Completed and Pending: Completed Studies During Hospitalization Category Date Time Status Sestamibi Stress Test Request Shyami ne Exams 04/01/20 06:00 Draft XR chest 1V sandra ble [id number] Stat Exams 04/01/20 01:17 Completed NM sheng perf SPECT r/s* [id number] Routin e Nuc Med 04/01/20 04:57 Completed Pending at discharge Category Date Time Status Sestamibi Stress Test Request Routi ne Exams 04/02/20 06:00 Stop Req Body Fluid Cultur e Stat Lab 04/01/20 14:30 Results Complete Blood Co unt w/Auto AM LABS Lab 04/03/20 04:00 Ordered Complete Blood Co unt w/Auto AM LABS Lab 04/04/20 04:00 Ordered Complete Blood Co unt w/Auto AM LABS Lab 04/05/20 04:00 Ordered Comprehensive Met abolic Panel AM LA BS Lab 04/03/20 04:00 Ordered Comprehensive Met abolic Panel AM LA BS Lab 04/04/20 04:00 Ordered Comprehensive Met abolic Panel AM LA BS Lab 04/05/20 04:00 Ordered Cosyntropin Stim Test Routine Lab 04/02/20 11:09 Results Magnesium AM LABS Lab 04/03/20 04:00 Ordered Magnesium AM LABS Lab 04/04/20 04:00 Ordered Magnesium AM LABS Lab 04/05/20 04:00 Ordered Phosphorus AM LAB S Lab 04/03/20 04:00 Ordered Phosphorus AM LAB S Lab 04/04/20 04:00 Ordered Phosphorus AM LAB S Lab 04/05/20 04:00 Ordered NM pul vent and p erfus* [id number] Routi ne Nuc Med 04/03/20 04:57 Ordered Labs from last 24 hours 04/02/20 04/02/20 04/02/20 11:09 10:58 06:24 WBC RBC Hgb Hct MCV MCH MCHC RDW Plt Count MPV Neut % (Auto) Lymph % (Auto) [place] % (Auto) Eos % (Auto) Baso % (Auto) Neut # (Auto) Lymph # (Auto) [place] # (Auto) Eos # (Auto) Baso # (Auto) Nucleated RBC % (a uto) Nucleated RBCs # Sodium Potassium Chloride Carbon Dioxide Anion Gap BUN Creatinine GFR Calculation Glucose POC Glucose 162 167 Calculated Osmolal ity Calcium Phosphorus Magnesium Random Cortisol Cortisol Response Peritoneal Color Peritoneal Appeara nce Peritoneal WBC Peritoneal RBC Periton Mononu # A uto Mononuclear WBCs % Polynuclear WBCs % Perit Polynuc WBCs # Peritoneal Diff Co mmnt 04/02/20 04/02/20 04/02/20 04:22 04:22 04:22 WBC 5.9 RBC 2.86 L Hgb 9.3 L Hct 27.9 L MCV 97.6 MCH 32.5 MCHC 33.3 RDW 12.8 Plt Count 201 MPV 12.0 H Neut % (Auto) 77.7 Lymph % (Auto) 11.6 [place] % (Auto) 6.3 Eos % (Auto) 3.8 Baso % (Auto) 0.3 Neut # (Auto) 4.54 Lymph # (Auto) 0.7 L [place] # (Auto) 0.4 Eos # (Auto) 0.2 Baso # (Auto) 0.0 Nucleated RBC % (a uto) 0 Nucleated RBCs # 0.0 Sodium 134 L Potassium 4.2 Chloride 96 L Carbon Dioxide 26 Anion Gap 16.2 BUN 36 H Creatinine 8.5 H* GFR Calculation 4.9 L Glucose 190 H POC Glucose Calculated Osmolal ity 291 Calcium 9.2 Phosphorus 5.5 H Magnesium 1.5 L Random Cortisol Cortisol Response Peritoneal Color Peritoneal Appeara nce Peritoneal WBC Peritoneal RBC [place] Mononu # A uto Mononuclear WBCs % Polynuclear WBCs % Perit Polynuc WBCs # Peritoneal Diff Co mmnt 04/02/20 04/01/20 04/01/20 01:38 20:13 19:35 WBC RBC Hgb Hct MCV MCH MCHC RDW Plt Count MPV Neut % (Auto) Lymph % (Auto) [place] % (Auto) Eos % (Auto) Baso % (Auto) Neut # (Auto) Lymph # (Auto) [place] # (Auto) Eos # (Auto) Baso # (Auto) Nucleated RBC % (a uto) Nucleated RBCs # Sodium Potassium Chloride Carbon Dioxide Anion Gap BUN Creatinine GFR Calculation Glucose POC Glucose 188 275 Calculated Osmolal ity Calcium Phosphorus Magnesium Random Cortisol 7.13 Cortisol Response Peritoneal Color Peritoneal Appeara nce Peritoneal WBC Peritoneal RBC [place] # A uto Mononuclear WBCs % Polynuclear WBCs % Perit Polynuc WBCs # Peritoneal Diff Co mmnt 04/01/20 04/01/20 16:27 14:30 WBC RBC Hgb Hct MCV MCH MCHC RDW Plt Count MPV Neut % (Auto) Lymph % (Auto) [place] % (Auto) Eos % (Auto) Baso % (Auto) Neut # (Auto) Lymph # (Auto) [place] # (Auto) Eos # (Auto) Baso # (Auto) Nucleated RBC % (a uto) Nucleated RBCs # Sodium Potassium Chloride Carbon Dioxide Anion Gap BUN Creatinine GFR Calculation Glucose POC Glucose 251 Calculated Osmolal ity Calcium Phosphorus Magnesium Random Cortisol Cortisol Response Peritoneal Color Colorless Peritoneal Appeara nce Clear Peritoneal WBC 7 Peritoneal RBC 0 [place] Monon[place] # A uto 0.007 Mononuclear WBCs % 100.000 Polynuclear WBCs % 0.000 Perit Polynuc WBCs # 0.000 Peritoneal Diff Co mmnt Yes Vitals: Last Vital Signs Temp 98.1 F 04/02/20 11:00 Pulse 62 04/02/20 11:00 Resp 14 04/02/20 11:00 BP 114/67 04/02/20 11:00 Pulse Ox 100 04/02/20 11:00 Discharge Plan Discharge Patient Disposition: Home Health Service Condition: Stable Prescriptions: New metoclopramide HCl 10 mg Tablet 5 mg PO AC&BEDTIME PRN (Reason: Nausea) Qty: 20 RF: 0 metoprolol tartrate 25 mg Tablet 12.5 mg PO BID Qty: 30 RF: 0 clopidogrel 75 mg Tablet 75 mg PO DAILY Qty: 30 RF: 0 sennosides-docusate sodium 8.6-50 mg Tablet 2 tab PO BID Qty: 120 RF: 0 Continued nitroglycerin 0.4 mg tablet, sublingual 0.4 mg SUBLINGUAL Q5M PRN (Reason: Chest Pain) Qty: 25 RF: 6 levothyroxine 112 mcg tablet 224 mcg PO DAILY Qty: 30 RF: 3 atorvastatin 40 mg tablet 40 mg PO DAILY Qty: 30 RF: 5 aspirin 81 mg Tablet,Chewable 81 mg PO DAILY RF: 0 Auryxia 210 mg iron tablet See Rx Instructions .ROUTE .COMPLEX RF: 0 pantoprazole 40 mg tablet,delayed release (DR/EC) 40 mg PO DAILY RF: 0 multivitamin [Multiple Vitamins] Tablet 1 tab PO DAILY RF: 0 paricalcitol [Zemplar] 1 mcg capsule See Rx Instructions .ROUTE .COMPLEX RF: 0 coenzyme Q10 [CoQ-10] 100 mg Capsule 100 mg PO DAILY RF: 0 cholecalciferol (vitamin D3) [Vitamin D3] 25 mcg (1,000 unit) Tablet,Chewable 25 mcg PO DAILY RF: 0 omega 9-oiq-ktm-fish oil [Fish Oil] 300-1,000 mg Capsule,Delayed Release(Dr/Ec) 1 cap PO DAILY RF: 0 latanoprost 0.005 % drops See Rx Instructions .ROUTE .COMPLEX RF: 0 brimonidine 0.2 % drops See Rx Instructions .ROUTE .COMPLEX RF: 0 dorzolamide-timolol 22.3-6.8 mg/mL drops See Rx Instructions .ROUTE .COMPLEX RF: 0 Drizalma Sprinkle 40 mg capsule, delayed rel sprinkle 40 mg PO DAILY RF: 0 Lantus Solostar U-100 Insulin 100 unit/mL (3 mL) insulin pen 50 unit SUBCUT BEDTIME Qty: 15 RF: 5 Cymbalta 30 mg Capsule,Delayed Release(Dr/Ec) 30 mg PO DAILY RF: 0 Discharge Orders: Discharge Order (Routine); Ordered 04/01/20 Ordered By: Wayne Ambriz Referrals: [facility] [Outside] Yovany Leonardo MD [Primary Care Provider] - 4-7 days Discharge Diet: Usual diet Discharge Activity: Increase activity as tolerated Activity Restrictions/Additional Instructions: Take all medicine as prescribed Arrange follow-up with your cardiovascular specialist, in the next 5 to 7 days. Discharge Attestations Time Spent in Discharge Care*: greater than 30 min Status at Discharge: Cognitive status at discharge: cognitively intact , Behavioral status at discharge: cooperative , Quality Metrics Clinical Quality Measures During this hospital stay, did patient experience: None Coding Level of Care Code Acute Director [facility] F[facility] Diagnoses CAD (coronary artery disease) I25.10 Coronary Disease-Associated Artery/Lesion type: [place] artery [place] vs. transplanted heart: [place] heart Associated angina: without angina Chronic diastolic CHF (congestive heart failure) I50.32 ESRD (end stage renal disease) N18.6
[2020-04-02 14:04] VITALS: BP 114/67; PULSE 62; RESP 14; TEMP 36.7; O2SAT 100
[2020-04-02 15:27] LABS: Cosyntropin 1 Hour 33.46 mcg/dL
--- NOTE | 2020-04-02 21:09 | PM.PN ---
Subjective Subjective: Interval history: Stable denies any more chest pain. Medications: Reviewed: Yes Medication Review Details: Current Medications Aspirin (Aspirin Chewable) 81 mg PO DAILY [facility] Last Admin: 04/01/20 08:55 Dose: 81 mg Documented by: Atorvastatin Calcium (Lipitor) 40 mg PO DAILY [facility] Last Admin: 04/01/20 08:54 Dose: 40 mg Documented by: Clopidogrel Bisulfate (Plavix) 75 mg PO DAILY [facility] Dextrose (D50w) 25 ml IVP ONCE PRN; Protocol PRN Reason: hypoglycemia protocol Dextrose (D50w) 50 ml IVP PRN PRN; Protocol PRN Reason: hypoglycemia protocol Dorzolamide/Timolol (Cosopt) 0 drop EYE-LEFT BID [facility] Last Admin: 04/01/20 17:37 Dose: 1 drop Documented by: Gentamicin Sulfate (Gentamicin Cream) 1 applic TOPICAL DAILY [facility] Last Admin: 04/01/20 12:54 Dose: 1 applic Documented by: Glucagon (Glucagen) 1 mg IM ONCE PRN; Protocol PRN Reason: Adult Acute Hypoglycemia Prot. Heparin Sodium (Beef Lung) (Heparin) 5,000 unit SUBCUT Q8H [facility] Last Admin: 04/02/20 04:42 Dose: 5,000 unit Documented by: Dextrose (D5w) 500 mls @ 100 mls/hr IV ONCE PRN; Protocol PRN Reason: Adult Acute Hypoglycemia Prot Insulin Aspart (Novolog) 0 unit SUBCUT WM&BEDTIME [facility]; Protocol Last Admin: 04/01/20 21:56 Dose: 8 unit Documented by: Insulin Glargine (Lantus) 50 unit SUBCUT BEDTIME [facility] Last Admin: 04/01/20 21:57 Dose: 50 unit Documented by: Isosorbide Mononitrate (Ismo) 20 mg PO BID [facility] Last Admin: 04/01/20 21:11 Dose: 20 mg Documented by: Levothyroxine Sodium (Synthroid) 224 mcg PO DAILY [facility] Last Admin: 04/01/20 08:56 Dose: 224 mcg Documented by: Metoprolol Tartrate (Lopressor) 12.5 mg PO BID [facility] Last Admin: 04/01/20 17:37 Dose: 12.5 mg Documented by: Nitroglycerin (Nitrostat) 0.4 mg SUBLINGUAL Q5M PRN PRN Reason: Chest Pain Ondansetron HCl (Zofran) 4 mg IVP Q2M PRN PRN Reason: NAUSEA Last Admin: 04/01/20 11:12 Dose: 4 mg Documented by: Ondansetron HCl (Zofran) 4 mg IVP Q6H PRN PRN Reason: NAUSEA AND VOMITING Last Admin: 04/02/20 03:38 Dose: 4 mg Documented by: Pantoprazole Sodium (Protonix) 40 mg PO DAILY [facility] Last Admin: 04/01/20 08:56 Dose: 40 mg Documented by: Peritoneal Dialysis Solution (Dianeal Low Ca W/2.5% Dex) 2,000 ml INTRAPERIT Q6H [facility] Last Admin: 04/02/20 02:14 Dose: 2,000 ml Documented by: Vitals/I&O/Wt Last Vital Signs Temp 98.1 F 04/02/20 14:04 Pulse 62 04/02/20 14:04 Resp 14 04/02/20 14:04 BP 114/67 04/02/20 14:04 Pulse Ox 100 04/02/20 14:04 04/02/20 04/02/20 04/02/20 06:59 14:59 22:59 Intake Total 200 / 1340 2152 / 2152 Output Total 2700 / 2700 Balance 200 / 1190 -548 / -548 Weight last 48 hrs Weight 210 lb Physical Exam Narrative: EXAM NARRATIVE: GENERAL: Patient is alert, awake and oriented x3. NECK: No jugular vein distension. HEENT: No cyanosis. No icterus. No pallor. HEART: Regular S1 and S2. No murmur, rub or gallop. LUNGS: Clear to auscultate bilaterally. ABDOMEN: Soft, nontender and nondistended. Positive bowel sounds. No guarding, rebound or tenderness. CENTRAL NERVOUS SYSTEM: Grossly nonfocal. EXTREMITIES: Lower extremities right below the knee amputation, left leg no pulses palpable however foot warm moist with good capillary refill Data : 04/02/20 04:22 04/02/20 04:22 Micro: Microbiology 04/01/20 14:30 Body Fluid Culture - Preliminary Peritoneal Fluid A&P Assessment and plan (1) CAD (coronary artery disease): Stable continue to optimize medicine as an outpatient. Status: Chronic Qualifiers: Coronary Disease-Associated Artery/Lesion type: [place] artery [place] vs. transplanted heart: [place] heart Associated angina: without angina Qualified Code(s): I25.10 - Atherosclerotic heart disease of [place] coronary artery without angina pectoris (2) Chronic diastolic CHF (congestive heart failure): Well compensated. Continue current Status: Acute (3) ESRD (end stage renal disease): Follow-up with nephrology Status: Acute Attestations Medical Necessity Statement*: Patient require continuation hospitalization for above defined care. Coding Level of Care Code Established Pt Acute [place] for Maris Braden Patient Type Established History Expanded Problem Focused Exam Expanded Problem Focused Medical Decision Making Moderate Complexity Diagnoses CAD (coronary artery disease) I25.10 Coronary Disease-Associated Artery/Lesion type: [place] artery [place] vs. transplanted heart: [place] heart Associated angina: without angina Chronic diastolic CHF (congestive heart failure) I50.32 ESRD (end stage renal disease) N18.6
== END 2020-04-02 15:02 | disposition home health service (06) ==
LOC: ER 03:51 → CSU 04:49
PROVIDERS: Internal Medicine; Nurse Practitioner Family; Admitting Provider Internal Medicine; PCP Internal Medicine; Visit Provider Internal Medicine
DX: I25.10 Atherosclerotic heart disease of native coronary artery without angina pectoris (principal); Z79.82 Long term (current) use of aspirin; E11.22 Type 2 diabetes mellitus with diabetic chronic kidney disease; I13.2 Hypertensive heart and chronic kidney disease with heart failure and with stage 5 chronic kidney disease, or end stage renal disease; N18.6 End stage renal disease; I50.32 Chronic diastolic (congestive) heart failure; F32.9 Major depressive disorder, single episode, unspecified; E78.5 Hyperlipidemia, unspecified; E03.9 Hypothyroidism, unspecified; E55.9 Vitamin D deficiency, unspecified; Z86.73 Personal history of transient ischemic attack (TIA), and cerebral infarction without residual deficits; G47.33 Obstructive sleep apnea (adult) (pediatric)
CPT/HCPCS: 12345; 36415; 36416; 71045; 78452; 80048; 80053; 80500; 82533; 82962; 83605; 83735; 84100; 84443; 84484; 85025; 85378; 85610; 85730; 87070; 87075; 87205; 89050; 90471; 90686; 90935; 93005; 93017; 94660; 94664; 96365; 96372; 96374; 96375; 99283; 99285; A9500; G0378; J0834; J1644; J1815 ×2; J2270; J2405; J2785; J3475; J3490; J8597; Q3014; Q4081

== ENCOUNTER 2020-04-18 06:53 | Inpatient (IN) | payer MEDICARE, MEDICAID, SELFPAY ==
[2020-04-18] VITALS (10 sets, daily range): BP systolic 101–132; BP diastolic 57–76; PULSE 57–71; RESP 15–20; TEMP 36.8–36.9; O2SAT 89–98; BMI 34.1
--- NOTE | 2020-04-18 07:17 | XR_ITS ---
WS: [id number] Portable AP upright chest, 04/18/2020 Clinical Data: CP Comparison: Portable chest, 04/01/2020. Findings: No nodules, masses or effusions are seen. The heart is large. The pulmonary vascularity is not increased. No pneumonia or pneumothorax is seen. The aortic arch and descending aorta are tortuou s. Minimal linear atelectasis extending from the right hilum into the mid right lung has not changed. Monitor leads are on the chest wall. XR/XR chest 1V portable [id number] Impression: Cardiomegaly and atherosclerosis.
--- NOTE | 2020-04-18 07:17 | ECG_ITS ---
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 Measurements Intervals [place] Rate: 61 P: ND: -1 QRS: 265 QRSD: 79 T: 5 QT: 404 QTc: 409 Interpretive Statements SUPRAVENTRICULAR RHYTHM POSSIBLE RIGHT VENTRICULAR HYPERTROPHY [SOME/ALL OF: PROMINENT R IN V1, LATE TRANSITION, RAD, AC, SSS] ANTERIOR MYOCARDIAL INFARCTION , PROBABLY OLD [40+ ms Q WAVE AND/OR ST/T ABNORMALITY IN V3/V4] POSSIBLE INFERIOR MYOCARDIAL INFARCTION , PROBABLY OLD [30 ms Q WAVE IN II/aVF] Compared to ECG 04/01/2020 21:33:59 Supraventricular rhythm now present Atrial abnormality now present Sinus rhythm no longer present Left-axis deviation no longer present Myocardial infarct finding still present Electronically Signed On 04-19-2020 20:08:23 PANMAN by Dong Pitt M.D. [id number]
--- NOTE | 2020-04-18 07:19 | ED_ITS ---
Documented by User: BILL Veras 04/18/20 07:21 HPI - Chest Pain General: Chief Complaint: Nausea/Vomiting/Diarrhea Stated Complaint: Chest Pain, N/V Time Seen by Provider: 04/18/20 07:17 History of Present Illness: HPI narrative: Patient presents here with left- sided chest pain that started last night. Patient has took 1 nitroglycerin morning with slight relief. Patient denies shortness of breath does have nausea and vomiting which has been going on since last night also. Patient is dialysis patient and he did her peritoneal dialysis last night. MD complaint: chest pain Onset (ago): hour(s) Timing of current episode: constant Prior episodes: Yes Onset: during rest Pain location: left chest Pain radiation: left arm Severity: moderate Quality: aching and sharp Relieving factors: nitroglycerin Exacerbating factors: nothing Associated symptoms: Reports nausea and vomiting; Deny dyspnea or fever(s) Treatment prior to arrival: nitroglycerin Review of Systems 2 Const: Denies: fever(s), chills or body aches Eyes: Denies: change in vision or blurry vision ENMT: Denies: throat pain or nasal congestion Card: Reports: chest pain; Denies: dyspnea on exertion Resp: Denies: dyspnea, productive cough or non-productive cough GI: Reports: nausea and vomiting Musc: Denies: extremity pain Skin/Breast: Denies: rash Neuro: Denies: headache(s) Psych: Denies: anxiety or depression Refugio/Lymph: Denies: easy bruising PFSH ED PFSH: Medical History (Updated 04/22/20 @ 13:23 by Karan Daniels DO) Anxiety CAD (coronary artery disease) Chronic diastolic CHF (congestive heart failure) Compensated currently Chronic kidney disease, stage V On peritoneal dialysis. Follows with Dr Ann. Claustrophobia Depression Diabetes Insulin-dependent End stage renal disease ESRD (end stage renal disease) Gastroparesis GERD (gastroesophageal reflux disease) HTN (hypertension) Hyperlipidemia Hypothyroidism Partial nontraumatic amputation of left foot (~06/2019) Peripheral vascular disease TIA (transient ischemic attack) Vitamin D deficiency Surgical History (Updated 04/22/20 @ 13:23 by Karan Daniels DO) History of appendectomy History of heart artery stent History of hysterectomy History of left heart catheterization History of right below knee amputation Peritoneal dialysis catheter in place S/P cholecystectomy S/P PICC central line placement Status post amputation of toe Family History Denies family history of CAD (coronary artery disease) Clotting disorder Dementia Bleeding disorder Social History Smoking and tobacco status: never smoked Alcohol intake: never Household members: spouse and family History of recent travel: No Physical Exam Const: COMMON NORMALS: no acute distress, average body habitus and patient oriented x3 HENMT: COMMON NORMALS: normocephalic HEAD & SCALP: normal to inspection and normocephalic FACE & SINUS: normal facial exam Eye: COMMON NORMALS: conjunctivae normal GENERAL EYE: appearance normal, both eyes and all related structures CONJUNCTIVA: Yes conjunctivae normal Neck/C-Spine: COMMON NORMALS: no JVD Chest: COMMONS NORMALS: normal inspection of the chest Resp: COMMON NORMALS: normal respiratory effort and clear to auscultation bilaterally AUSCULTATION: clear to auscultation bilaterally Cardio: COMMON NORMALS: no JVD, regular rate and regular rhythm RATE: regular rate RHYTHM: regular rhythm GI: COMMON NORMALS: Normal to inspection, nondistended, normoactive bowel sounds present Extremity: COMMON NORMALS: normal to inspection NARRATIVE EXTREMITY EXAM: Right AKA Neuro: COMMON NORMALS: patient oriented x3 Course Vital Signs: Vital signs: Vital Signs Temperature 97.4 F L 04/20/20 11:50 Pulse Rate 70 04/20/20 12:00 Respiratory Rate 18 04/20/20 12:00 Blood Pressure 137/62 04/20/20 12:00 Pulse Oximetry 97 04/20/20 12:00 MDM - Chest Pain Lab Data: Labs: Lab Results 04/18/20 04/18/20 04/18/20 Range/Units 07:43 07:43 07:43 WBC 7.9 (4.0-10.0) 10^3/ uL RBC 3.44 L (4.1-5.3) 10^6/u L Hgb 11.1 L (11.5-15.3) g/dL Hct 32.2 L (37.0-47.0) % MCV 93.6 (81-99) fL MCH 32.3 (28.0-34.0) pg MCHC 34.5 (30.0-36.0) g/dL RDW 12.8 (12.1-15.1) % Plt Count 293 (130-400) 10^3/c mm MPV 11.6 H (7.4-10.4) fL Neut % (Auto) 69.8 % Lymph % (Auto) 20.5 % [place] % (Auto) 6.2 % Eos % (Auto) 2.5 % Baso % (Auto) 0.6 % Neut # (Auto) 5.47 (1.8-7.7) 10^3/u L Lymph # (Auto) 1.6 (0.8-4.8) 10^3/u L [place] # (Auto) 0.5 (0.2-0.9) 10^3/u L Eos # (Auto) 0.2 (0.0-0.8) 10^3/u L Baso # (Auto) 0.1 (0.0-0.1) 10^3/u L Nucleated RBC % (a uto) 0 % Nucleated RBCs # 0.0 /100WBC PT 13.60 (12.1-14.9) SECO NDS INR 1.01 (0.8-1.2) APTT (23.9-36.7) SECO NDS Sodium 136 (136-145) mmol/L Potassium 3.0 L (3.5-5.1) mmol/L Chloride 93 L (98-107) mmol/L Carbon Dioxide 26 (22-29) mmol/L Anion Gap 20.0 H (5-19) BUN 25 H (6-20) mg/dL Creatinine 5.7 H* (0.5-0.9) mg/dL GFR Calculation 7.7 L (90-130) mL/min Glucose 111 (65-115) mg/dL POC Glucose (70-110) mg/dL Calculated Osmolal ity 287 (285-295) mOsm/k g Calcium 9.6 (8.5-10.5) mg/dL Phosphorus (2.5-4.5) mg/dL Magnesium (1.7-2.3) mg/dL Total Bilirubin 0.3 (0.15-1.2) mg/dL AST 10 (0-32) U/L ALT 11 (0-33) U/L Alkaline Phosphata se 112 H (35-105) IU/L Troponin T Baselin e (0-10) ng/L Troponin T 120 Min [place] (0-10) ng/L Delta Troponin T (0-10) ABS# Troponin T Hi Sens 6Hr (0-10) ng/L Troponin T Hi Sens 6Hr Delta (0-12) ng/L NT-Pro-B Natriuret Pep 3734 H (0-125) pg/mL Total Protein 6.4 L (6.6-8.7) g/dL Albumin 3.4 L (3.5-5.2) g/dL Globulin 3.0 (1.3-4.6) g/dL 04/18/20 04/18/20 04/18/20 Range/Units 07:43 07:43 10:32 WBC (4.0-10.0) 10^3/ uL RBC (4.1-5.3) 10^6/u L Hgb (11.5-15.3) g/dL Hct (37.0-47.0) % MCV (81-99) fL MCH (28.0-34.0) pg MCHC (30.0-36.0) g/dL RDW (12.1-15.1) % Plt Count (130-400) 10^3/c mm MPV (7.4-10.4) fL Neut % (Auto) % Lymph % (Auto) % [place] % (Auto) % Eos % (Auto) % Baso % (Auto) % Neut # (Auto) (1.8-7.7) 10^3/u L Lymph # (Auto) (0.8-4.8) 10^3/u L [place] # (Auto) (0.2-0.9) 10^3/u L Eos # (Auto) (0.0-0.8) 10^3/u L Baso # (Auto) (0.0-0.1) 10^3/u L Nucleated RBC % (a uto) % Nucleated RBCs # /100WBC PT (12.1-14.9) SECO NDS INR (0.8-1.2) APTT (23.9-36.7) SECO NDS Sodium (136-145) mmol/L Potassium (3.5-5.1) mmol/L Chloride (98-107) mmol/L Carbon Dioxide (22-29) mmol/L Anion Gap (5-19) BUN (6-20) mg/dL Creatinine (0.5-0.9) mg/dL GFR Calculation (90-130) mL/min Glucose (65-115) mg/dL POC Glucose (70-110) mg/dL Calculated Osmolal ity (285-295) mOsm/k g Calcium (8.5-10.5) mg/dL Phosphorus (2.5-4.5) mg/dL Magnesium 1.3 L (1.7-2.3) mg/dL Total Bilirubin (0.15-1.2) mg/dL AST (0-32) U/L ALT (0-33) U/L Alkaline Phosphata se (35-105) IU/L Troponin T Baselin e 33 H (0-10) ng/L Troponin T 120 Min [place] 36.97 H (0-10) ng/L Delta Troponin T 3.97 (0-10) ABS# Troponin T Hi Sens 6Hr (0-10) ng/L Troponin T Hi Sens 6Hr Delta (0-12) ng/L NT-Pro-B Natriuret Pep (0-125) pg/mL Total Protein (6.6-8.7) g/dL Albumin (3.5-5.2) g/dL Globulin (1.3-4.6) g/dL 04/18/20 04/18/20 04/18/20 Range/Units 13:44 16:32 19:57 WBC (4.0-10.0) 10^3/ uL RBC (4.1-5.3) 10^6/u L Hgb (11.5-15.3) g/dL Hct (37.0-47.0) % MCV (81-99) fL MCH (28.0-34.0) pg MCHC (30.0-36.0) g/dL RDW (12.1-15.1) % Plt Count (130-400) 10^3/c mm MPV (7.4-10.4) fL Neut % (Auto) % Lymph % (Auto) % [place] % (Auto) % Eos % (Auto) % Baso % (Auto) % Neut # (Auto) (1.8-7.7) 10^3/u L Lymph # (Auto) (0.8-4.8) 10^3/u L [place] # (Auto) (0.2-0.9) 10^3/u L Eos # (Auto) (0.0-0.8) 10^3/u L Baso # (Auto) (0.0-0.1) 10^3/u L Nucleated RBC % (a uto) % Nucleated RBCs # /100WBC PT (12.1-14.9) SECO NDS INR (0.8-1.2) APTT (23.9-36.7) SECO NDS Sodium (136-145) mmol/L Potassium (3.5-5.1) mmol/L Chloride (98-107) mmol/L Carbon Dioxide (22-29) mmol/L Anion Gap (5-19) BUN (6-20) mg/dL Creatinine (0.5-0.9) mg/dL GFR Calculation (90-130) mL/min Glucose (65-115) mg/dL POC Glucose 128 195 (70-110) mg/dL Calculated Osmolal ity (285-295) mOsm/k g Calcium (8.5-10.5) mg/dL Phosphorus (2.5-4.5) mg/dL Magnesium (1.7-2.3) mg/dL Total Bilirubin (0.15-1.2) mg/dL AST (0-32) U/L ALT (0-33) U/L Alkaline Phosphata se (35-105) IU/L Troponin T Baselin e (0-10) ng/L Troponin T 120 Min [place] (0-10) ng/L Delta Troponin T (0-10) ABS# Troponin T Hi Sens 6Hr 39.20 H (0-10) ng/L Troponin T Hi Sens 6Hr Delta 6.20 (0-12) ng/L NT-Pro-B Natriuret Pep (0-125) pg/mL Total Protein (6.6-8.7) g/dL Albumin (3.5-5.2) g/dL Globulin (1.3-4.6) g/dL 04/19/20 04/19/20 04/19/20 Range/Units 05:27 05:27 11:15 WBC 6.1 (4.0-10.0) 10^3/ uL RBC 3.04 L (4.1-5.3) 10^6/u L Hgb 9.7 L (11.5-15.3) g/dL Hct 28.9 L (37.0-47.0) % MCV 95.1 (81-99) fL MCH 31.9 (28.0-34.0) pg MCHC 33.6 (30.0-36.0) g/dL RDW 13.1 (12.1-15.1) % Plt Count 195 (130-400) 10^3/c mm MPV 11.7 H (7.4-10.4) fL Neut % (Auto) 61.2 % Lymph % (Auto) 26.3 % [place] % (Auto) 7.6 % Eos % (Auto) 3.9 % Baso % (Auto) 0.7 % Neut # (Auto) 3.72 (1.8-7.7) 10^3/u L Lymph # (Auto) 1.6 (0.8-4.8) 10^3/u L [place] # (Auto) 0.5 (0.2-0.9) 10^3/u L Eos # (Auto) 0.2 (0.0-0.8) 10^3/u L Baso # (Auto) 0.0 (0.0-0.1) 10^3/u L Nucleated RBC % (a uto) 0 % Nucleated RBCs # 0.0 /100WBC PT (12.1-14.9) SECO NDS INR (0.8-1.2) APTT 132.8 H (23.9-36.7) SECO NDS Sodium 136 (136-145) mmol/L Potassium 3.4 L (3.5-5.1) mmol/L Chloride 96 L (98-107) mmol/L Carbon Dioxide 24 (22-29) mmol/L Anion Gap 19.4 H (5-19) BUN 29 H (6-20) mg/dL Creatinine 5.9 H* (0.5-0.9) mg/dL GFR Calculation 7.4 L (90-130) mL/min Glucose 161 H (65-115) mg/dL POC Glucose (70-110) mg/dL Calculated Osmolal ity 291 (285-295) mOsm/k g Calcium 8.5 (8.5-10.5) mg/dL Phosphorus 6.1 H (2.5-4.5) mg/dL Magnesium 1.3 L (1.7-2.3) mg/dL Total Bilirubin 0.3 (0.15-1.2) mg/dL AST 15 (0-32) U/L ALT 15 (0-33) U/L Alkaline Phosphata se 104 (35-105) IU/L Troponin T Baselin e (0-10) ng/L Troponin T 120 Min [place] (0-10) ng/L Delta Troponin T (0-10) ABS# Troponin T Hi Sens 6Hr (0-10) ng/L Troponin T Hi Sens 6Hr Delta (0-12) ng/L NT-Pro-B Natriuret Pep (0-125) pg/mL Total Protein 5.4 L (6.6-8.7) g/dL Albumin 2.8 L (3.5-5.2) g/dL Globulin 2.6 (1.3-4.6) g/dL 04/19/20 04/19/20 Range/Units 11:59 14:30 WBC (4.0-10.0) 10^3/ uL RBC (4.1-5.3) 10^6/u L Hgb (11.5-15.3) g/dL Hct (37.0-47.0) % MCV (81-99) fL MCH (28.0-34.0) pg MCHC (30.0-36.0) g/dL RDW (12.1-15.1) % Plt Count (130-400) 10^3/c mm MPV (7.4-10.4) fL Neut % (Auto) % Lymph % (Auto) % [place] % (Auto) % Eos % (Auto) % Baso % (Auto) % Neut # (Auto) (1.8-7.7) 10^3/u L Lymph # (Auto) (0.8-4.8) 10^3/u L [place] # (Auto) (0.2-0.9) 10^3/u L Eos # (Auto) (0.0-0.8) 10^3/u L Baso # (Auto) (0.0-0.1) 10^3/u L Nucleated RBC % (a uto) % Nucleated RBCs # /100WBC PT (12.1-14.9) SECO NDS INR (0.8-1.2) APTT 37.7 H D (23.9-36.7) SECO NDS Sodium (136-145) mmol/L Potassium (3.5-5.1) mmol/L Chloride (98-107) mmol/L Carbon Dioxide (22-29) mmol/L Anion Gap (5-19) BUN (6-20) mg/dL Creatinine (0.5-0.9) mg/dL GFR Calculation (90-130) mL/min Glucose (65-115) mg/dL POC Glucose 123 (70-110) mg/dL Calculated Osmolal ity (285-295) mOsm/k g Calcium (8.5-10.5) mg/dL Phosphorus (2.5-4.5) mg/dL Magnesium (1.7-2.3) mg/dL Total Bilirubin (0.15-1.2) mg/dL AST (0-32) U/L ALT (0-33) U/L Alkaline Phosphata se (35-105) IU/L Troponin T Baselin e (0-10) ng/L Troponin T 120 Min [place] (0-10) ng/L Delta Troponin T (0-10) ABS# Troponin T Hi Sens 6Hr (0-10) ng/L Troponin T Hi Sens 6Hr Delta (0-12) ng/L NT-Pro-B Natriuret Pep (0-125) pg/mL Total Protein (6.6-8.7) g/dL Albumin (3.5-5.2) g/dL Globulin (1.3-4.6) g/dL Discharge Plan Discharge Patient Disposition: Admitted As Inpatient Admit Provider: Luis F Ventura Clinical Impression: Chest pain, Diabetes, HTN (hypertension), Peritoneal dialysis catheter in place, Hyperlipidemia, Gastroparesis, ESRD (end stage renal disease) Condition: Stable Discharge Diet: Advance as tolerated Discharge Activity: Resume usual activity and Increase activity as tolerated Sign Out Sign Out Data: Patient Sign Out occurred on 04/18/20 at 09:20. Patient's care was discussed, and care was transferred from to Karan Daniels DO. Coding Level of Care Code ED Oral Surgery Technician for Chg Fwd Exam Comprehensive Documented by User: Karan Daniels DO 04/22/20 13:24 HPI - Chest Pain General: Chief Complaint: Nausea/Vomiting/Diarrhea Stated Complaint: Chest Pain, N/V Time Seen by Provider: 04/18/20 07:17 PFSH ED PFSH: Medical History (Updated 04/22/20 @ 13:23 by Karan Daniels DO) Anxiety CAD (coronary artery disease) Chronic diastolic CHF (congestive heart failure) Compensated currently Chronic kidney disease, stage V On peritoneal dialysis. Follows with Dr Ann. Claustrophobia Depression Diabetes Insulin-dependent End stage renal disease ESRD (end stage renal disease) Gastroparesis GERD (gastroesophageal reflux disease) HTN (hypertension) Hyperlipidemia Hypothyroidism Partial nontraumatic amputation of left foot (~06/2019) Peripheral vascular disease TIA (transient ischemic attack) Vitamin D deficiency Surgical History (Updated 04/22/20 @ 13:23 by Karan Daniels DO) History of appendectomy History of heart artery stent History of hysterectomy History of left heart catheterization History of right below knee amputation Peritoneal dialysis catheter in place S/P cholecystectomy S/P PICC central line placement Status post amputation of toe Family History Denies family history of CAD (coronary artery disease) Clotting disorder Dementia Bleeding disorder Social History Smoking and tobacco status: never smoked Alcohol intake: never Household members: spouse and family History of recent travel: No Course Vital Signs: Vital signs: Vital Signs Temperature 97.4 F L 04/20/20 11:50 Pulse Rate 70 04/20/20 12:00 Respiratory Rate 18 04/20/20 12:00 Blood Pressure 137/62 04/20/20 12:00 Pulse Oximetry 97 04/20/20 12:00 MDM - Chest Pain MDM Narrative: Medical decision making narrative: reviewed chart. Pt had preivously positive stress test. Discused with dr. Ventura. Lab Data: Labs: Lab Results 04/18/20 04/18/20 04/18/20 Range/Units 07:43 07:43 07:43 WBC 7.9 (4.0-10.0) 10^3/ uL RBC 3.44 L (4.1-5.3) 10^6/u L Hgb 11.1 L (11.5-15.3) g/dL Hct 32.2 L (37.0-47.0) % MCV 93.6 (81-99) fL MCH 32.3 (28.0-34.0) pg MCHC 34.5 (30.0-36.0) g/dL RDW 12.8 (12.1-15.1) % Plt Count 293 (130-400) 10^3/c mm MPV 11.6 H (7.4-10.4) fL Neut % (Auto) 69.8 % Lymph % (Auto) 20.5 % [place] % (Auto) 6.2 % Eos % (Auto) 2.5 % Baso % (Auto) 0.6 % Neut # (Auto) 5.47 (1.8-7.7) 10^3/u L Lymph # (Auto) 1.6 (0.8-4.8) 10^3/u L [place] # (Auto) 0.5 (0.2-0.9) 10^3/u L Eos # (Auto) 0.2 (0.0-0.8) 10^3/u L Baso # (Auto) 0.1 (0.0-0.1) 10^3/u L Nucleated RBC % (a uto) 0 % Nucleated RBCs # 0.0 /100WBC PT 13.60 (12.1-14.9) SECO NDS INR 1.01 (0.8-1.2) APTT (23.9-36.7) SECO NDS Sodium 136 (136-145) mmol/L Potassium 3.0 L (3.5-5.1) mmol/L Chloride 93 L (98-107) mmol/L Carbon Dioxide 26 (22-29) mmol/L Anion Gap 20.0 H (5-19) BUN 25 H (6-20) mg/dL Creatinine 5.7 H* (0.5-0.9) mg/dL GFR Calculation 7.7 L (90-130) mL/min Glucose 111 (65-115) mg/dL POC Glucose (70-110) mg/dL Calculated Osmolal ity 287 (285-295) mOsm/k g Calcium 9.6 (8.5-10.5) mg/dL Phosphorus (2.5-4.5) mg/dL Magnesium (1.7-2.3) mg/dL Total Bilirubin 0.3 (0.15-1.2) mg/dL AST 10 (0-32) U/L ALT 11 (0-33) U/L Alkaline Phosphata se 112 H (35-105) IU/L Troponin T Baselin e (0-10) ng/L Troponin T 120 Min [place] (0-10) ng/L Delta Troponin T (0-10) ABS# Troponin T Hi Sens 6Hr (0-10) ng/L Troponin T Hi Sens 6Hr Delta (0-12) ng/L NT-Pro-B Natriuret Pep 3734 H (0-125) pg/mL Total Protein 6.4 L (6.6-8.7) g/dL Albumin 3.4 L (3.5-5.2) g/dL Globulin 3.0 (1.3-4.6) g/dL 04/18/20 04/18/20 04/18/20 Range/Units 07:43 07:43 10:32 WBC (4.0-10.0) 10^3/ uL RBC (4.1-5.3) 10^6/u L Hgb (11.5-15.3) g/dL Hct (37.0-47.0) % MCV (81-99) fL MCH (28.0-34.0) pg MCHC (30.0-36.0) g/dL RDW (12.1-15.1) % Plt Count (130-400) 10^3/c mm MPV (7.4-10.4) fL Neut % (Auto) % Lymph % (Auto) % [place] % (Auto) % Eos % (Auto) % Baso % (Auto) % Neut # (Auto) (1.8-7.7) 10^3/u L Lymph # (Auto) (0.8-4.8) 10^3/u L [place] # (Auto) (0.2-0.9) 10^3/u L Eos # (Auto) (0.0-0.8) 10^3/u L Baso # (Auto) (0.0-0.1) 10^3/u L Nucleated RBC % (a uto) % Nucleated RBCs # /100WBC PT (12.1-14.9) SECO NDS INR (0.8-1.2) APTT (23.9-36.7) SECO NDS Sodium (136-145) mmol/L Potassium (3.5-5.1) mmol/L Chloride (98-107) mmol/L Carbon Dioxide (22-29) mmol/L Anion Gap (5-19) BUN (6-20) mg/dL Creatinine (0.5-0.9) mg/dL GFR Calculation (90-130) mL/min Glucose (65-115) mg/dL POC Glucose (70-110) mg/dL Calculated Osmolal ity (285-295) mOsm/k g Calcium (8.5-10.5) mg/dL Phosphorus (2.5-4.5) mg/dL Magnesium 1.3 L (1.7-2.3) mg/dL Total Bilirubin (0.15-1.2) mg/dL AST (0-32) U/L ALT (0-33) U/L Alkaline Phosphata se (35-105) IU/L Troponin T Baselin e 33 H (0-10) ng/L Troponin T 120 Min [place] 36.97 H (0-10) ng/L Delta Troponin T 3.97 (0-10) ABS# Troponin T Hi Sens 6Hr (0-10) ng/L Troponin T Hi Sens 6Hr Delta (0-12) ng/L NT-Pro-B Natriuret Pep (0-125) pg/mL Total Protein (6.6-8.7) g/dL Albumin (3.5-5.2) g/dL Globulin (1.3-4.6) g/dL 04/18/20 04/18/20 04/18/20 Range/Units 13:44 16:32 19:57 WBC (4.0-10.0) 10^3/ uL RBC (4.1-5.3) 10^6/u L Hgb (11.5-15.3) g/dL Hct (37.0-47.0) % MCV (81-99) fL MCH (28.0-34.0) pg MCHC (30.0-36.0) g/dL RDW (12.1-15.1) % Plt Count (130-400) 10^3/c mm MPV (7.4-10.4) fL Neut % (Auto) % Lymph % (Auto) % [place] % (Auto) % Eos % (Auto) % Baso % (Auto) % Neut # (Auto) (1.8-7.7) 10^3/u L Lymph # (Auto) (0.8-4.8) 10^3/u L [place] # (Auto) (0.2-0.9) 10^3/u L Eos # (Auto) (0.0-0.8) 10^3/u L Baso # (Auto) (0.0-0.1) 10^3/u L Nucleated RBC % (a uto) % Nucleated RBCs # /100WBC PT (12.1-14.9) SECO NDS INR (0.8-1.2) APTT (23.9-36.7) SECO NDS Sodium (136-145) mmol/L Potassium (3.5-5.1) mmol/L Chloride (98-107) mmol/L Carbon Dioxide (22-29) mmol/L Anion Gap (5-19) BUN (6-20) mg/dL Creatinine (0.5-0.9) mg/dL GFR Calculation (90-130) mL/min Glucose (65-115) mg/dL POC Glucose 128 195 (70-110) mg/dL Calculated Osmolal ity (285-295) mOsm/k g Calcium (8.5-10.5) mg/dL Phosphorus (2.5-4.5) mg/dL Magnesium (1.7-2.3) mg/dL Total Bilirubin (0.15-1.2) mg/dL AST (0-32) U/L ALT (0-33) U/L Alkaline Phosphata se (35-105) IU/L Troponin T Baselin e (0-10) ng/L Troponin T 120 Min [place] (0-10) ng/L Delta Troponin T (0-10) ABS# Troponin T Hi Sens 6Hr 39.20 H (0-10) ng/L Troponin T Hi Sens 6Hr Delta 6.20 (0-12) ng/L NT-Pro-B Natriuret Pep (0-125) pg/mL Total Protein (6.6-8.7) g/dL Albumin (3.5-5.2) g/dL Globulin (1.3-4.6) g/dL 04/19/20 04/19/20 04/19/20 Range/Units 05:27 05:27 11:15 WBC 6.1 (4.0-10.0) 10^3/ uL RBC 3.04 L (4.1-5.3) 10^6/u L Hgb 9.7 L (11.5-15.3) g/dL Hct 28.9 L (37.0-47.0) % MCV 95.1 (81-99) fL MCH 31.9 (28.0-34.0) pg MCHC 33.6 (30.0-36.0) g/dL RDW 13.1 (12.1-15.1) % Plt Count 195 (130-400) 10^3/c mm MPV 11.7 H (7.4-10.4) fL Neut % (Auto) 61.2 % Lymph % (Auto) 26.3 % [place] % (Auto) 7.6 % Eos % (Auto) 3.9 % Baso % (Auto) 0.7 % Neut # (Auto) 3.72 (1.8-7.7) 10^3/u L Lymph # (Auto) 1.6 (0.8-4.8) 10^3/u L [place] # (Auto) 0.5 (0.2-0.9) 10^3/u L Eos # (Auto) 0.2 (0.0-0.8) 10^3/u L Baso # (Auto) 0.0 (0.0-0.1) 10^3/u L Nucleated RBC % (a uto) 0 % Nucleated RBCs # 0.0 /100WBC PT (12.1-14.9) SECO NDS INR (0.8-1.2) APTT 132.8 H (23.9-36.7) SECO NDS Sodium 136 (136-145) mmol/L Potassium 3.4 L (3.5-5.1) mmol/L Chloride 96 L (98-107) mmol/L Carbon Dioxide 24 (22-29) mmol/L Anion Gap 19.4 H (5-19) BUN 29 H (6-20) mg/dL Creatinine 5.9 H* (0.5-0.9) mg/dL GFR Calculation 7.4 L (90-130) mL/min Glucose 161 H (65-115) mg/dL POC Glucose (70-110) mg/dL Calculated Osmolal ity 291 (285-295) mOsm/k g Calcium 8.5 (8.5-10.5) mg/dL Phosphorus 6.1 H (2.5-4.5) mg/dL Magnesium 1.3 L (1.7-2.3) mg/dL Total Bilirubin 0.3 (0.15-1.2) mg/dL AST 15 (0-32) U/L ALT 15 (0-33) U/L Alkaline Phosphata se 104 (35-105) IU/L Troponin T Baselin e (0-10) ng/L Troponin T 120 Min pamunkey (0-10) ng/L Delta Troponin T (0-10) ABS# Troponin T Hi Sens 6Hr (0-10) ng/L Troponin T Hi Sens 6Hr Delta (0-12) ng/L NT-Pro-B Natriuret Pep (0-125) pg/mL Total Protein 5.4 L (6.6-8.7) g/dL Albumin 2.8 L (3.5-5.2) g/dL Globulin 2.6 (1.3-4.6) g/dL 04/19/20 04/19/20 Range/Units 11:59 14:30 WBC (4.0-10.0) 10^3/ uL RBC (4.1-5.3) 10^6/u L Hgb (11.5-15.3) g/dL Hct (37.0-47.0) % MCV (81-99) fL MCH (28.0-34.0) pg MCHC (30.0-36.0) g/dL RDW (12.1-15.1) % Plt Count (130-400) 10^3/c mm MPV (7.4-10.4) fL Neut % (Auto) % Lymph % (Auto) % [place] % (Auto) % Eos % (Auto) % Baso % (Auto) % Neut # (Auto) (1.8-7.7) 10^3/u L Lymph # (Auto) (0.8-4.8) 10^3/u L [place] # (Auto) (0.2-0.9) 10^3/u L Eos # (Auto) (0.0-0.8) 10^3/u L Baso # (Auto) (0.0-0.1) 10^3/u L Nucleated RBC % (a uto) % Nucleated RBCs # /100WBC PT (12.1-14.9) SECO NDS INR (0.8-1.2) APTT 37.7 H D (23.9-36.7) SECO NDS Sodium (136-145) mmol/L Potassium (3.5-5.1) mmol/L Chloride (98-107) mmol/L Carbon Dioxide (22-29) mmol/L Anion Gap (5-19) BUN (6-20) mg/dL Creatinine (0.5-0.9) mg/dL GFR Calculation (90-130) mL/min Glucose (65-115) mg/dL POC Glucose 123 (70-110) mg/dL Calculated Osmolal ity (285-295) mOsm/k g Calcium (8.5-10.5) mg/dL Phosphorus (2.5-4.5) mg/dL Magnesium (1.7-2.3) mg/dL Total Bilirubin (0.15-1.2) mg/dL AST (0-32) U/L ALT (0-33) U/L Alkaline Phosphata se (35-105) IU/L Troponin T Baselin e (0-10) ng/L Troponin T 120 Min pamunkey (0-10) ng/L Delta Troponin T (0-10) ABS# Troponin T Hi Sens 6Hr (0-10) ng/L Troponin T Hi Sens 6Hr Delta (0-12) ng/L NT-Pro-B Natriuret Pep (0-125) pg/mL Total Protein (6.6-8.7) g/dL Albumin (3.5-5.2) g/dL Globulin (1.3-4.6) g/dL Discharge Plan Discharge Patient Disposition: Admitted As Inpatient Admit Provider: Luis F Ventura Clinical Impression: Chest pain, Diabetes, HTN (hypertension), Peritoneal dialysis catheter in place, Hyperlipidemia, Gastroparesis, ESRD (end stage renal disease) Condition: Stable Discharge Diet: Advance as tolerated Discharge Activity: Resume usual activity and Increase activity as tolerated Sign Out Sign Out Data: Patient Sign Out occurred on 04/18/20 at 09:20. Patient's care was discussed, and care was transferred from to Karan Daniels DO. Coding Level of Care Code ED Oral Surgery Technician for Maris Fwd Exam Comprehensive
[2020-04-18] MEDS: sodium chloride 0.9% 500 ML 999 ML IV (07:55)
[2020-04-18] MEDS: nitroglycerin 0.4 mg sublingual Tablet SUBLINGUAL (07:56)
[2020-04-18 08:06] LABS: Basophils # 0.1 10^3/uL (0.0-0.1); Basophils % 0.6 %; Eosinophils # 0.2 10^3/uL (0.0-0.8); Eosinophils % 2.5 %; Hematocrit 32.2 % (37.0-47.0); Hemoglobin 11.1 g/dL (11.5-15.3); Lymphocytes # 1.6 10^3/uL (0.8-4.8); Lymphocytes % 20.5 %; Mean Corpuscular HGB Conc 34.5 g/dL (30.0-36.0); Mean Corpuscular Hemoglobin 32.3 pg (28.0-34.0); Mean Corpuscular Volume 93.6 fL (81-99); Mean Platelet Volume 11.6 fL (7.4-10.4); Monocytes # 0.5 10^3/uL (0.2-0.9); Monocytes % 6.2 %; Neutrophils # 5.47 10^3/uL (1.8-7.7); Neutrophils % 69.8 %; Nucleated Red Blood Cells % 0 %; Platelet Count 293 10^3/cmm (130-400); Red Blood Count 3.44 10^6/uL (4.1-5.3); Red Cell Distribution Width 12.8 % (12.1-15.1); White Blood Count 7.9 10^3/uL (4.0-10.0)
[2020-04-18 08:14] LABS: INR 1.01 (0.8-1.2)
[2020-04-18 08:24] LABS: Troponin(5th) Baseline 33 ng/L (0-10)
[2020-04-18 08:33] LABS: Alanine Aminotransferase 11 U/L (0-33); Albumin Level 3.4 g/dL (3.5-5.2); Alkaline Phosphatase 112 IU/L (35-105); Aspartate Amino Transferase 10 U/L (0-32); Blood Urea Nitrogen 25 mg/dL (6-20); Calcium 9.6 mg/dL (8.5-10.5); Carbon Dioxide 26 mmol/L (22-29); Chloride 93 mmol/L (98-107); Glomerular Filtration Rate 7.7 mL/min (90-130); Glucose 111 mg/dL (65-115); NT Pro B Type Natriuretic Pept 3734 pg/mL (0-125); Osmolality Calculated 287 mOsm/kg (285-295); Sodium 136 mmol/L (136-145); Total Bilirubin 0.3 mg/dL (0.15-1.2); Total Protein 6.4 g/dL (6.6-8.7)
--- NOTE | 2020-04-18 09:17 | ECG_ITS ---
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 Measurements Intervals [place] Rate: 67 P: -29 W[place]: 189 QRS: 266 QRSD: 81 T: 32 QT: 398 QTc: 422 Interpretive Statements SINUS RHYTHM POSSIBLE RIGHT VENTRICULAR HYPERTROPHY [SOME/ALL OF: PROMINENT R IN V1, LATE TRANSITION, RAD, AC, SSS] ANTERIOR MYOCARDIAL INFARCTION , PROBABLY OLD [40+ ms Q WAVE AND/OR ST/T ABNORMALITY IN V3/V4] POSSIBLE INFERIOR MYOCARDIAL INFARCTION , PROBABLY OLD [30 ms Q WAVE IN II/aVF] Compared to ECG 04/01/2020 21:33:59 Left-axis deviation no longer present Myocardial infarct finding still present Electronically Signed On 04-19-2020 20:22:23 METAL NUMERICAL CONTROL PROGRAMMER by Dong Pitt M.D. [id number]
[2020-04-18 10:58] LABS: Troponin 5 2HR 36.97 ng/L (0-10); Troponin 5 2HR Delta 3.97 ABS# (0-10)
[2020-04-18] MEDS: potassium chloride oral liq 20 mEq/15 mL UDC 40 MEQ PO (11:14)
[2020-04-18] MEDS: ondansetron 2 mg/ML SDV 2 mL 4 MG IVP (13:15)
[2020-04-18] MEDS: lidocaine 1% 5 ML in potassium chloride premix 100 ML 25 ML IV (13:16)
--- NOTE | 2020-04-18 13:17 | ECG_ITS ---
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 Measurements Intervals [place] Rate: 61 P: -36 VT: 175 QRS: 267 QRSD: 86 T: 45 QT: 427 QTc: 431 Interpretive Statements SINUS RHYTHM POSSIBLE RIGHT VENTRICULAR HYPERTROPHY [SOME/ALL OF: PROMINENT R IN V1, LATE TRANSITION, RAD, AC, SSS] ANTERIOR MYOCARDIAL INFARCTION , PROBABLY OLD [40+ ms Q WAVE AND/OR ST/T ABNORMALITY IN V3/V4] PROBABLE INFERIOR MYOCARDIAL INFARCTION , PROBABLY OLD [35 ms Q WAVE IN II/aVF] Compared to ECG 04/18/2020 09:37:35 No significant changes Electronically Signed On 04-19-2020 20:22:11 GRAIN BUYER by Dong Ptit M.D. [id number]
--- NOTE | 2020-04-18 13:28 | PM.HP ---
Providers/Chief Complaint Primary Care Provider: Yovany Leonardo MD Chief Complaint: Chest Pain, N/V History of Present Illness Rizwana Herzog is a 55 year old female who reports she had initiation of chest discomfort, left-sided, pressure radiating to her left arm last night when she was trying to go to sleep. She reports she had this off and on all night and had difficulty sleeping. It was present this morning and she took a sublingual nitroglycerin, and came to the hospital. She reports she got a second sublingual nitroglycerin in the emergency department alleviating her discomfort. She has had nausea, vomiting. She denies any significant shortness of breath. She has been fatigued. No diarrhea. No fever. No personal history of Covid, exposure to Covid she knows of. She has a long history of intermittent nausea and vomiting secondary to gastroparesis. Review of Systems General: Reports: 10 or more systems reviewed and unremarkable except in HPI and below Const: Denies: fever(s) Eyes: Denies: change in vision ENMT: Denies: throat pain Card: Reports: chest pain Resp: Denies: dyspnea GI: Reports: nausea and vomiting; Denies: abdominal pain : Denies: flank pain Musc: Denies: neck pain Skin/Breast: Denies: rash Neuro: Denies: headache(s) Psych: Denies: anxiety Endo: Denies: polyuria Refugio/Lymph: Denies: easy bruising All/Imm: Denies: urticaria Medications/Allergies Home Medications Medication Instructions Recorded Confirmed Last Taken Type aspirin 81 mg PO DAILY 06/25/19 04/18/20 04/17/20 History multivitamin [Multiple Vitamins] 1 tab PO DAILY 06/30/19 04/18/20 04/17/20 History paricalcitol [Zemplar] See Rx Instructions .ROUTE .COMPLEX 06/30/19 04/18/20 04/17/20 History ferric citrate 210 mg iron tablet See Rx Instructions .ROUTE 09/06/19 04/18/20 04/17/20 History .COMPLEX tab levothyroxine 112 mcg tablet 224 mcg PO DAILY #30 tab 12/11/19 04/18/20 04/17/20 Rx cholecalciferol (vitamin D3) 25 mcg PO DAILY 01/17/20 04/18/20 04/17/20 History [Vitamin D3] coenzyme Q10 [CoQ-10] 100 mg PO DAILY 01/17/20 04/18/20 04/17/20 History omega 4-qfu-zkj-fish oil [Fish Oil] 1 cap PO DAILY 01/17/20 04/18/20 04/17/20 History brimonidine See Rx Instructions .ROUTE .COMPLEX 01/31/20 04/18/20 04/17/20 History dorzolamide-timolol See Rx Instructions .ROUTE .COMPLEX 01/31/20 04/18/20 04/17/20 History pantoprazole 40 mg PO DAILY 02/16/20 04/18/20 04/17/20 History nitroglycerin 0.4 mg sublingual 0.4 mg SUBLINGUAL Q5M PRN #25 tab 03/26/20 04/18/20 04/18/20 Rx tablet atorvastatin 40 mg tablet 40 mg PO DAILY #30 tab 03/27/20 04/18/20 04/17/20 Rx clopidogrel 75 mg PO DAILY #30 tab 04/02/20 04/18/20 04/17/20 Rx metoclopramide HCl 5 mg PO AC&BEDTIME PRN #20 tab 04/02/20 04/18/20 Unknown Rx insulin glargine [Lantus Solostar 50 unit SUBCUT BID 04/18/20 04/18/20 04/17/20 History U-100 Insulin] metoprolol tartrate 12.5 mg PO BID 04/18/20 04/18/20 04/17/20 History netarsudil-latanoprost [Rocklatan] 1 drp OPHTHALMIC (EYE) BEDTIME 04/18/20 04/18/20 04/17/20 History sennosides-docusate sodium 1 tab PO DAILY 04/18/20 04/18/20 04/17/20 History Allergies Allergy/AdvReac Type Severity Reaction Status Date / Time metformin [From Glucophage] Allergy Severe Unknown Verified 04/18/20 07:02 venlafaxine [From Effexor] Allergy Severe ADR-Shakine Verified 04/18/20 07:02 ss PFSH Acute PFSH: Medical History (Updated 04/18/20 @ 13:58 by Luis F Ventura MD) Anxiety CAD (coronary artery disease) Nuclear stress test was read no obvious ischemia done on April 01, although slight abnormality with mild reversibility distal lateral wall Chronic diastolic CHF (congestive heart failure) Compensated currently Chronic kidney disease, stage V On peritoneal dialysis. Follows with Dr Ann. Claustrophobia Depression Diabetes Insulin-dependent ESRD (end stage renal disease) Gastroparesis GERD (gastroesophageal reflux disease) HTN (hypertension) Hyperlipidemia Hypothyroidism Partial nontraumatic amputation of left foot (~06/2019) Peripheral vascular disease TIA (transient ischemic attack) Vitamin D deficiency Surgical History History of appendectomy History of heart artery stent History of hysterectomy History of left heart catheterization History of right below knee amputation Peritoneal dialysis catheter in place S/P cholecystectomy S/P PICC central line placement Status post amputation of toe Family History Denies family history of CAD (coronary artery disease) Clotting disorder Dementia Bleeding disorder Social History Smoking and tobacco status: never smoked Alcohol intake: never Household members: spouse and family History of recent travel: No Vitals/I&O/Wt Last Vital Signs Temp 98.5 F 04/18/20 07:02 Pulse 62 04/18/20 07:02 Resp 20 H 04/18/20 07:02 BP 132/76 04/18/20 07:02 Pulse Ox 98 04/18/20 07:02 Weight last 48 hrs Weight 92.986 kg Physical Exam Narrative: EXAM NARRATIVE: General exam is a white female, no apparent distress HEENT: Pupils equally round. Oropharynx clear. Neck is supple no lymphadenopathy or thyromegaly Cardiovascular regular rate and rhythm without murmur, no S3 or S4 Lungs clear no wheezing or crackles Abdomen is soft nontender with positive bowel sounds. Peritoneal dialysis catheter is noted without any significant drainage around the catheter. Extremities no cyanosis clubbing or edema. Right lower extremity with below the knee amputation Skin no rash Neuro no focal deficits Data : 04/18/20 07:43 04/18/20 07:43 Other data: EKG with normal sinus rhythm, normal axis, poor R wave progression and therefore possible previous. Small Q waves inferiorly. Chest x-ray no infiltrate Potassium low at 3.0 Calcium 9.6 LFTs normal with exception of alk phos slightly elevated at 112 Troponin 33 at baseline, 37 at 2 hours BNP elevated at 3734 A&P Assessment and plan (1) Chest pain: She has had recurrent chest discomfort. Recent previous nuclear stress test demonstrated some reversible ischemia thought to be artifact. Chest discomfort improved with nitroglycerin given in the emergency department. She is currently chest discomfort free. Continue aspirin, Plavix, statin, beta-chyna Cardiology consultation Trend troponin Telemetry Last echo in January 2020 demonstrated normal EF, 2/4 diastolic dysfunction, poor study Status: Acute (2) Hypokalemia: supplement Check magnesium level in blood in lab Status: Acute Additional A&P Information End-stage renal disease on peritoneal dialysis. Nephrology consultation. History of gastroparesis Type 2 diabetes, sliding scale insulin Hyperlipidemia, continue statin Multiple other medical problems as listed in past medical history Observation Heparin for DVT prophylaxis Attestations Medical Necessity Statement*: Will need less than 2 midnight stay, for evaluation of chest discomfort. 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
[2020-04-18 14:32] LABS: Magnesium 1.3 mg/dL (1.7-2.3)
--- NOTE | 2020-04-18 14:54 | PM.CONSULT ---
Providers/Reason For Consult Consulting Physican/Specialty*: christelle bullard md / telenephrology Reason for Consult*: ESRD, electrolyte abnormalities Attending Physician: Luis F Ventura MD Primary Care Provider: Yovany Leonardo MD History of Present Illness History of Present Illness Rizwana Herzog is a 55 year old female CAD, ESRD, diastolic dysfunction, PVd. Pt was recently discharged approx 04-02-20. Pt returns w/ 1 day of left sided CP and + trop. Review of Systems General: Reports: 10 or more systems reviewed and unremarkable except in HPI and below Narrative: weak, cp, drainage from PD catheter, no n/v/f/c/[place]/d/sob Meds/Allergies Home Medications and Allergies Home Medications Medication Instructions Recorded Confirmed Last Taken Type aspirin 81 mg PO DAILY 06/25/19 04/18/20 04/17/20 History multivitamin [Multiple Vitamins] 1 tab PO DAILY 06/30/19 04/18/20 04/17/20 History paricalcitol [Zemplar] See Rx Instructions .ROUTE .COMPLEX 06/30/19 04/18/20 04/17/20 History ferric citrate 210 mg iron tablet See Rx Instructions .ROUTE 09/06/19 04/18/20 04/17/20 History .COMPLEX tab levothyroxine 112 mcg tablet 224 mcg PO DAILY #30 tab 12/11/19 04/18/20 04/17/20 Rx cholecalciferol (vitamin D3) 25 mcg PO DAILY 01/17/20 04/18/20 04/17/20 History [Vitamin D3] coenzyme Q10 [CoQ-10] 100 mg PO DAILY 01/17/20 04/18/20 04/17/20 History omega 6-zmx-bgm-fish oil [Fish Oil] 1 cap PO DAILY 01/17/20 04/18/20 04/17/20 History brimonidine See Rx Instructions .ROUTE .COMPLEX 01/31/20 04/18/20 04/17/20 History dorzolamide-timolol See Rx Instructions .ROUTE .COMPLEX 01/31/20 04/18/20 04/17/20 History pantoprazole 40 mg PO DAILY 02/16/20 04/18/20 04/17/20 History nitroglycerin 0.4 mg sublingual 0.4 mg SUBLINGUAL Q5M PRN #25 tab 03/26/20 04/18/20 04/18/20 Rx tablet atorvastatin 40 mg tablet 40 mg PO DAILY #30 tab 03/27/20 04/18/20 04/17/20 Rx clopidogrel 75 mg PO DAILY #30 tab 04/02/20 04/18/20 04/17/20 Rx metoclopramide HCl 5 mg PO AC&BEDTIME PRN #20 tab 04/02/20 04/18/20 Unknown Rx insulin glargine [Lantus Solostar 50 unit SUBCUT BID 04/18/20 04/18/20 04/17/20 History U-100 Insulin] metoprolol tartrate 12.5 mg PO BID 04/18/20 04/18/20 04/17/20 History netarsudil-latanoprost [Rocklatan] 1 drp OPHTHALMIC (EYE) BEDTIME 04/18/20 04/18/20 04/17/20 History sennosides-docusate sodium 1 tab PO DAILY 04/18/20 04/18/20 04/17/20 History Allergies Allergy/AdvReac Type Severity Reaction Status Date / Time metformin [From Glucophage] Allergy Severe Unknown Verified 04/18/20 07:02 venlafaxine [From Effexor] Allergy Severe ADR-Shakine Verified 04/18/20 07:02 ss Current Medications Current Medications Generic Name Dose Route Start Last Admin Trade Name Freq PRN Reason Stop Dose Admin Lidocaine HCl 5 ml/ Potassium 105 mls @ 25 mls/hr 04/18/20 11:27 04/18/20 13:16 Chloride IV 04/18/20 15:38 25 mls/hr ONCE ONE Administration PFSH Acute PFSH: Medical History (Updated 04/18/20 @ 13:58 by Luis F Ventura MD) Anxiety CAD (coronary artery disease) Nuclear stress test was read no obvious ischemia done on April 01, although slight abnormality with mild reversibility distal lateral wall Chronic diastolic CHF (congestive heart failure) Compensated currently Chronic kidney disease, stage V On peritoneal dialysis. Follows with Dr Ann. Claustrophobia Depression Diabetes Insulin-dependent ESRD (end stage renal disease) Gastroparesis GERD (gastroesophageal reflux disease) HTN (hypertension) Hyperlipidemia Hypothyroidism Partial nontraumatic amputation of left foot (~06/2019) Peripheral vascular disease TIA (transient ischemic attack) Vitamin D deficiency Surgical History History of appendectomy History of heart artery stent History of hysterectomy History of left heart catheterization History of right below knee amputation Peritoneal dialysis catheter in place S/P cholecystectomy S/P PICC central line placement Status post amputation of toe Family History Denies family history of CAD (coronary artery disease) Clotting disorder Dementia Bleeding disorder Social History Smoking and tobacco status: never smoked Alcohol intake: never Household members: spouse and family History of recent travel: No Vitals/I&O/Wt Last Vital Signs Temp 98.5 F 04/18/20 07:02 Pulse 62 04/18/20 07:02 Resp 20 H 04/18/20 07:02 BP 132/76 04/18/20 07:02 Pulse Ox 98 04/18/20 07:02 Weight last 48 hrs Weight 92.986 kg Physical Exam Narrative: EXAM NARRATIVE: obese female, NARd VSS heent- nc/at, eomi, anicteric neck no jvp lung cta b/l heart reg, no rub abd soft, nt, + drainge and red by exit site EXT rT bkA. NO LEG EDEMA NEuro- a,a, o x 3 A&P Additional A&P Information 55 yr old female 1. CP, recent stress test, + trop - per cardiology 2. ESRD- on CCPD at home. here she has done CAPD- 5 exchanges a day alt 1.5% and 2.5% gluc, low ca, 2 l fills -normal cxr. though elevated bnp 3. replace k and mag 4. hgb good- hold epo 5. 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
[2020-04-18 16:35] LABS: Glucose Point of Care 128 mg/dL (70-110)
--- NOTE | 2020-04-18 16:45 | P.CONIM_ITS ---
Providers/Reason For Consult Consulting Physican/Specialty*: Dong Pitt MD/Cardiology Reason for Consult*: Chest Pain Requesting Physcian: Dr Daniels Attending Physician: Luis F Ventura MD Primary Care Provider: Yovany Leonardo MD History of Present Illness History of Present Illness Rizwana Herzog is a 55 year old female with past medical history significant for coronary artery disease status post stent to LAD in [place] last year, severe peripheral vascular disease with history of BKA on the right side and severe peripheral vascular disease of left leg, history of small vessel disease, end-stage renal disease on peritoneal dialysis presented with chest pain and nausea/vomittin. According to patient she has been having chest pain episodes more frequently now. Last night she had an episode where she felt substernal chest pressure, that radiated to the left arm. It lasted several minutes and during the night she kept having on and off chest pain. After 2 nitros, chest pain got better. She also had nausea and vomitting which are chronic symptoms. Mild troponin elevation of 33 which did not show any significant delta on 2 hours and was 36. She is currently chest pain free. She had a recent stress test that showed small area of reversibility in the lateral wall but was thought to be artifact as patient did not have prone imaging. Review of Systems Narrative: CONSTITUTIONAL: No fever chills weight loss or gain or night sweats. [] HEENT: Normocephalic, atraumatic.[] RESPIRATORY: No cough, sputum, hemoptysis or wheezing.[] CARDIOVASCULAR: Chest pain, No shortness of breath, PND, orthopnea, lower extremity edema, presyncope or syncope. [] GI: no nausea vomiting diarrhea. [] DIGITAL ACCOUNT COORDINATOR: No numbness, tingling, weakness or loss of function in any part of the body. [] MUSCULOSKELETAL: No knee or joint pain or rashes. [] Meds/Allergies Home Medications and Allergies Home Medications Medication Instructions Recorded Confirmed Last Taken Type aspirin 81 mg PO DAILY 06/25/19 04/18/20 04/17/20 History multivitamin [Multiple Vitamins] 1 tab PO DAILY 06/30/19 04/18/20 04/17/20 History paricalcitol [Zemplar] See Rx Instructions .ROUTE .COMPLEX 06/30/19 04/18/20 04/17/20 History ferric citrate 210 mg iron tablet See Rx Instructions .ROUTE 04/01/20 11/12/20 11/11/20 History .COMPLEX tab levothyroxine 112 mcg tablet 224 mcg PO DAILY #30 tab 12/11/19 04/18/20 04/17/20 Rx cholecalciferol (vitamin D3) 25 mcg PO DAILY 01/17/20 04/18/20 04/17/20 History [Vitamin D3] coenzyme Q10 [CoQ-10] 100 mg PO DAILY 01/17/20 04/18/20 04/17/20 History omega 1-afs-hng-fish oil [Fish Oil] 1 cap PO DAILY 01/17/20 04/18/20 04/17/20 History brimonidine See Rx Instructions .ROUTE .COMPLEX 01/31/20 04/18/20 04/17/20 History dorzolamide-timolol See Rx Instructions .ROUTE .COMPLEX 01/31/20 04/18/20 04/17/20 History pantoprazole 40 mg PO DAILY 02/16/20 04/18/20 04/17/20 History nitroglycerin 0.4 mg sublingual 0.4 mg SUBLINGUAL Q5M PRN #25 tab 03/26/20 04/18/20 04/18/20 Rx tablet atorvastatin 40 mg tablet 40 mg PO DAILY #30 tab 03/27/20 04/18/20 04/17/20 Rx clopidogrel 75 mg PO DAILY #30 tab 04/02/20 04/18/20 04/17/20 Rx metoclopramide HCl 5 mg PO AC&BEDTIME PRN #20 tab 04/02/20 04/18/20 Unknown Rx insulin glargine [Lantus Solostar 50 unit SUBCUT BID 04/18/20 04/18/20 04/17/20 History U-100 Insulin] metoprolol tartrate 12.5 mg PO BID 04/18/20 04/18/20 04/17/20 History netarsudil-latanoprost [Rocklatan] 1 drp OPHTHALMIC (EYE) BEDTIME 04/18/20 04/18/20 04/17/20 History sennosides-docusate sodium 1 tab PO DAILY 04/18/20 04/18/20 04/17/20 History Allergies Allergy/AdvReac Type Severity Reaction Status Date / Time metformin [From Glucophage] Allergy Severe Unknown Verified 04/18/20 07:02 venlafaxine [From Effexor] Allergy Severe ADR-Shakine Verified 04/18/20 07:02 ss PFSH Acute PFSH: Medical History Anxiety CAD (coronary artery disease) Nuclear stress test was read no obvious ischemia done on April 01, although slight abnormality with mild reversibility distal lateral wall Chronic diastolic CHF (congestive heart failure) Compensated currently Chronic kidney disease, stage V On peritoneal dialysis. Follows with Dr Ann. Claustrophobia Depression Diabetes Insulin-dependent ESRD (end stage renal disease) Gastroparesis GERD (gastroesophageal reflux disease) HTN (hypertension) Hyperlipidemia Hypothyroidism Partial nontraumatic amputation of left foot (~06/2019) Peripheral vascular disease TIA (transient ischemic attack) Vitamin D deficiency Surgical History History of appendectomy History of heart artery stent History of hysterectomy History of left heart catheterization History of right below knee amputation Peritoneal dialysis catheter in place S/P cholecystectomy S/P PICC central line placement Status post amputation of toe Family History Denies family history of CAD (coronary artery disease) Clotting disorder Dementia Bleeding disorder Social History Smoking and tobacco status: never smoked Alcohol intake: never Household members: spouse and family History of recent travel: No Vitals/I&O/Wt Last Vital Signs Temp 98.2 F 04/18/20 15:38 Pulse 71 04/18/20 15:40 Resp 18 04/18/20 15:40 BP 121/70 04/18/20 15:40 Pulse Ox 97 04/18/20 15:40 Weight last 48 hrs Weight 205 lb Physical Exam Narrative: EXAM NARRATIVE: GENERAL: Patient is alert, awake and oriented x3. [] NECK: No jugular vein distension. [] HEENT: No cyanosis. No icterus. No pallor. [] HEART: Regular S1 and S2. No murmur, rub or gallop. [] LUNGS: Clear to auscultate bilaterally. [] ABDOMEN: Soft, nontender and nondistended. Positive bowel sounds. No guarding, rebound or tenderness. [] CENTRAL NERVOUS SYSTEM: Grossly nonfocal. [] EXTREMITIES: Right leg BKA A&P Assessment and plan (1) Chest pain: Status: Acute (2) Carotid stenosis: Status: Acute Qualifiers: Laterality: bilateral Qualified Code(s): I65.23 - Occlusion and stenosis of bilateral carotid arteries (3) Lower limb amputation, ankle: Status: Acute Qualifiers: Encounter type: subsequent encounter Laterality: right Qualified Code(s): S98.011D - Complete traumatic amputation of right foot at ankle level, subsequent encounter (4) DAILY (generalized anxiety disorder): Status: Acute (5) DOROTEO on CPAP: Status: Acute (6) CAD (coronary artery disease): Status: Chronic Qualifiers: Coronary Disease-Associated Artery/Lesion type: [place] artery [place] vs. transplanted heart: [place] heart Associated angina: without angina Qualified Code(s): I25.10 - Atherosclerotic heart disease of [place] coronary artery without angina pectoris (7) HTN (hypertension): Status: Acute Qualifiers: Hypertension type: unspecified Qualified Code(s): I10 - Essential (primary) hypertension (8) Diabetes: Status: Acute Qualifiers: Diabetes mellitus type: type 2 Diabetes mellitus alf insulin use: with alf use Diabetes mellitus complication status: with kidney complications (9) Chronic diastolic CHF (congestive heart failure): Status: Acute (10) Peripheral vascular disease: Status: Acute Patient has multiple cardiac risk factors including diabetes, hypertension, hyperlipidemia and has significant prior coronary artery disease with LAD PCI in October of last year. She has been having recurrent chest pressure symptoms which are typical and cause her to come to ER. She also says that there was a borderline severe stenosis on her last cath that was left for medical management previously. Her recent stress test showed a small area of reversibility noted in the lateral wall. This was thought to be artifact based on lack of prone imaging. However given patient has continued having typical chest pain symptoms, we will proceed with coronary angiography. I have discussed with patient the risks and benefits of the procedure and she wants to proceed with it. Risks including bleeding, infection, stroke, heart attack, abnormal heart rhythm or have been described. Patient understands the risks and wants to proceed with the procedure. N.p.o. past midnight. Continue medications including aspirin and Plavix. Thank you for involving us with care of this patient. Please call with questions. 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
[2020-04-18] MEDS: heparin 5,000 unit/mL INJ 1 mL 5000 UNIT SUBCUT (18:02)
[2020-04-18] MEDS: Dianeal low Ca w/1.5% dex 2,000 mL Bag 2000 ML INTRAPERIT (18:02)
[2020-04-18] MEDS: dorzolamide/timolol Op Soln 10 mL Btl EYE-LEFT (18:03)
[2020-04-18] MEDS: metoprolol tartrate 25 mg Tablet 12.5 MG PO (18:03)
[2020-04-18] MEDS: brimonidine 0.2% Op Soln 5 mL Btl EYE-LEFT (18:45)
--- NOTE | 2020-04-18 19:07 | PC.NURSE ---
call received from neurologist Evelyn instructions to give 5 PD instillations a day alternating between 1.5 jose l and 2.5 jose l
[2020-04-18 20:00] LABS: Glucose Point of Care 195 mg/dL (70-110)
[2020-04-18] MEDS: sevelamer 800 mg Tablet PO (20:19)
[2020-04-18] MEDS: ALPRAZolam 0.25 mg Tablet PO (20:19)
[2020-04-18] MEDS: morphine 4 mg/mL SDV 1 mL 2 MG IVP (20:24)
--- NOTE | 2020-04-18 20:32 | PC.NURSE ---
Addendum entered by Ashleigh Van RN 04/18/20 20:34: Patient current SpO2 at 85-88% on room air. Place NC at 2L and had increase to 95%. Original Note: Patient c/o left 6/10 sided jaw pain without radiation down neck or arm. No chest pain. Noted that patient's left jaw appears slightly swollen. Patient stated, I think it is a toothache. Administered medications as ordered to include medication for pain.
[2020-04-18] MEDS: Dianeal low Ca w/2.5% dex 2,000 mL Bag 2000 ML INTRAPERIT (23:16)
--- NOTE | 2020-04-18 23:24 | PC.NURSE ---
Patient continues to complain of left jaw pain. Swelling observed to jaw and is also warm to the touch. Patient reports having a broken tooth on her left lower jaw that has been aggravating off and on for a while now. Will provide pain medication when appropriate time allows. PD draining at this time. Pale yellow, clear fluid is draining. See PD documentation for values. Patient tolerating well presently.
[2020-04-19] VITALS (40 sets, daily range): BP systolic 82–141; BP diastolic 42–69; PULSE 54–76; RESP 12–23; TEMP 36.7–37.5; O2SAT 91–100
[2020-04-19] MEDS: morphine 4 mg/mL SDV 1 mL 2 MG IVP ×3 (00:28→22:14)
[2020-04-19] MEDS: heparin 5,000 unit/mL INJ 1 mL 5000 UNIT SUBCUT ×2 (05:04→16:49)
[2020-04-19] MEDS: Dianeal low Ca w/1.5% dex 2,000 mL Bag 2000 ML INTRAPERIT ×2 (05:05→14:43)
--- NOTE | 2020-04-19 05:48 | PC.NURSE ---
Patient prepped and consented for [facility] scheduled this am. PD exchange completed using aseptic technique. Patient tolerated well.
[2020-04-19 06:18] LABS: Basophils % 0.7 %; Eosinophils # 0.2 10^3/uL (0.0-0.8); Eosinophils % 3.9 %; Hematocrit 28.9 % (37.0-47.0); Hemoglobin 9.7 g/dL (11.5-15.3); Lymphocytes # 1.6 10^3/uL (0.8-4.8); Lymphocytes % 26.3 %; Mean Corpuscular HGB Conc 33.6 g/dL (30.0-36.0); Mean Corpuscular Hemoglobin 31.9 pg (28.0-34.0); Mean Corpuscular Volume 95.1 fL (81-99); Mean Platelet Volume 11.7 fL (7.4-10.4); Monocytes # 0.5 10^3/uL (0.2-0.9); Monocytes % 7.6 %; Neutrophils # 3.72 10^3/uL (1.8-7.7); Neutrophils % 61.2 %; Nucleated Red Blood Cells % 0 %; Platelet Count 195 10^3/cmm (130-400); Red Blood Count 3.04 10^6/uL (4.1-5.3); Red Cell Distribution Width 13.1 % (12.1-15.1); White Blood Count 6.1 10^3/uL (4.0-10.0)
[2020-04-19 06:26] LABS: Alanine Aminotransferase 15 U/L (0-33); Albumin Level 2.8 g/dL (3.5-5.2); Alkaline Phosphatase 104 IU/L (35-105); Anion Gap 19.4 (5-19); Aspartate Amino Transferase 15 U/L (0-32); Blood Urea Nitrogen 29 mg/dL (6-20); Calcium 8.5 mg/dL (8.5-10.5); Carbon Dioxide 24 mmol/L (22-29); Chloride 96 mmol/L (98-107); Globulin 2.6 g/dL (1.3-4.6); Glomerular Filtration Rate 7.4 mL/min (90-130); Glucose 161 mg/dL (65-115); Magnesium 1.3 mg/dL (1.7-2.3); Osmolality Calculated 291 mOsm/kg (285-295); Phosphorus 6.1 mg/dL (2.5-4.5); Potassium 3.4 mmol/L (3.5-5.1); Sodium 136 mmol/L (136-145); Total Bilirubin 0.3 mg/dL (0.15-1.2); Total Protein 5.4 g/dL (6.6-8.7)
[2020-04-19] MEDS: sodium chloride 0.9% 1,000 ML 50 ML IV (06:32)
[2020-04-19] MEDS: diphenhydrAMINE 50 mg Capsule PO (06:32)
--- NOTE | 2020-04-19 06:52 | XACV_ITS ---
Exam Room: [facility] Ht: 165 cm Wt: 95 kg BSA: 2.12 m2 Gender: Female : 1965 Any Known Allergies: Other Exam Priority: Routine Procedure(s): Procedure Description: Diagnostic procedure Procedure Description: PCI procedure Procedure Description: Drug Eluting Coronary Stent Procedure Description: PTCA Procedure Description: Miscellaneous Procedure Description: ACT Procedure Description: Coronary Angiography Procedure Description: Pressure Wire Diagnostic Cath Status: Urgent Diagnostic Findings * LM has luminal irregularities. * CX has mild 20 to 30% stenosis in mid vessel. It gives rise to 3 OM branches. OM 2 has ostial 80 percent stenosis. Distal left circumflex artery has 60 to 70% stenosis.. * RCA is a large vessel. It has luminal irregularities however no significant stenosis is present. * LAD arises from left main artery. Mid Left Anterior Descending Coronary Artery: Moderate 70% stenosis, JENNIFER: 3 flow. There is a proximal to mid vessel stent. 50 to 60% stenosis is noted in distal part of the stent. After the stent there is about 70% stenosis in mid LAD at the takeoff of small sized diagonal branch. We decided to perform FFR of mid LAD.. * Coronary angiography shows right dominance. Interventional Findings * We decided to perform FFR of mid LAD.We engaged the left main artery with XB 3.5 guide catheter. We used FFR wire after zeroing and normalizing and put it across the lesion in the mid LAD. Baseline FFR was 0.88. Adenosine IV was started. FFR value dropped down to 0.76. At this time we decided to perform PCI of mid LAD. We used 2.5 x 12 mm semicompliant balloon to predilate the in-stent restenosis in prior stent and the de nathalie lesion. This was followed by placement of a 2.75 x 30 mm resolute Polina drug-eluting stent. At this time final angiogram was performed which showed excellent stent expansion, no residual stenosis and JENNIFER-3 flow. Guidewire and guide catheter were removed. Patient left the Supply Chain Program Manager in stable condition. * Mid Left Anterior Descending Coronary Artery: 70% stenosis treated with AB TREK 2.50X12 RX BALLOON and MDT R POLINA 2.75X30 ENRIQUE. 0% residual stenosis, JENNIFER: 3 flow. Conclusions 1. There is severe coronary artery disease. 2. FFR of mid LAD was 0.76. 3. Severe OM 2 stenosis. However this is a small sized distal vessel. 4. Mid Left Anterior Descending Coronary Artery was treated with Balloon and Drug Eluting Stent. Recommendations * Transfer back to [facility]. * Continue aspirin and Plavix for at least 1 year. * High intensity statin therapy. * Beta-chyna. * OM 2 has severe ostial stenosis. However this is a small sized distal vessel. Will recommend treating with optimal medical therapy. If patient continues having symptoms on medical therapy including Imdur and Ranexa, can consider balloon angioplasty or PCI of OM 2. Interventional RX Recommendation: PCI w/o planned CABG Diagnostic RX Recommendation: PCI w/o planned CABG Anticoagulation: Heparin Pressures Phase:Rest AO : 120 / 66 ( 87 ) @ 1:41:00 AM 112 / 76 ( 92 ) @ 1:49:00 AM 88 / 60 ( 74 ) @ 2:22:00 AM Clinical Evaluation EBL: 5mL-10mL Procedural Details Procedure Consent Obtained. Pre-Procedure Time Out. Identified patient by full name and date of as verbalized by the patient/guarantor. Does the consent match the physician's order: Yes. Accurate & Complete Informed Consent: Yes. Inpatient/Outpatient History & Physical on Chart: Yes. If H&P is completed, is and addenduem needed: No; If yes, is the addendum complete: N/A. Visualize and Verify Site with Patient/Guarantor: N/A. Relevant Radiology Images available: N/A. Pre-op teaching completed and patient verbalized understanding. The risks, benefits, and alternatives of sedation and/or procedure were discussed by physician. The patient agrees to continue. Procedure started. [facility] Clinical Fraility Score: 4: Vulnerable. Supply Chain Program Manager Indications: Worsening Angina. Chest Pain Symptom Assessment: Typical Angina Symptoms. Cardiovascular Instability: No. Correct patient, site and procedure confirmed by cath team. PERRLA. Strong, equal hand hospital scientist bilaterally. Lungs clear x 5 lobes. IV Site on Arrival: 22 gauge in the right anticubital. Pt has RBKA. Pt has peritoneal dialysis. Physician arrived. Pre Procedural Pulses: left dorsalis pedis was Doppled. Pre Procedural Pulses: left posterior tibial was Doppled. Pre Procedural Pulses: bilateral radial was 1+. Oxygen started at 2liters/min via nasal canula. bilateral groins was prepped with chloroprep then draped in the usual sterile fashion. Baseline sample Acquired. HR: 60 BPM. Equipment: 6F - Femoral. Cardiac Cath Pack. ACIST Manifold Kit Model BT 2000. Heparinized Saline (2 units/mL), 1000 mL bag. Kit, Micropuncture. Physician scrubbed in. Immediate Pre-Procedure Time Out. Correct Patient: Yes; Correct Procedure: Yes; Correct Site: Yes; Correct Patient Position: Yes; Correct Supplies: Yes; Dried Flammable Prep: Yes; Blood Products Available: N/A;. Lidocaine 1% infiltrated to the right groin. Arterial access obtained with micropuncture set. A 5 senegalese JL4 catheter in over wire. Catheter out. A 5 senegalese JR4 catheter in over wire. Multiple views taken of right coronary artery. Catheter out. A 5 senegalese JL4.5 catheter in over wire. Multiple views taken of left coronary artery. Catheter out. Sheath flushed periodically to maintain patency. Inventory is CRD 6 FR XB 3.5 GUIDE. 6 senegalese XB 3.5 guide catheter was inserted over the wire. FFR guidewire was advanced through the guide catheter to lesion in the mid LAD. An FFR value of 0.76 was obtained for a lesion located at Mid LAD. ACT drawn. Results 358 seconds. Therapeutic limits - pre-heparin administration 90-150 seconds and monitoring heparin during a vascular procedure >250 seconds. Inflation number : 1 A AB TREK 2.50X12 RX BALLOON was prepped and advanced across the Mid LAD , then inflated to 12 YAHAIRA for 0:24 seconds. Inflation number: 2 The AB TREK 2.50X12 RX BALLOON was reinflated across the Mid LAD, to 10 YAHAIRA for 0:17 seconds. Inflation number: 3 The AB TREK 2.50X12 RX BALLOON was reinflated across the Mid LAD, to 12 YAHAIRA for 0:21 seconds. Balloon out. Results checked. Inflation Number : 4 A MDT R POLINA 2.75X30 ENRIQUE -Lot Number# [id number] exp date 01/15/2021 was prepped and advanced across the Mid LAD. The stent was deployed at 12 YAHAIRA for 0:34 seconds. Stent balloon out over wire. Results checked. Wire out. Results checked. Guide catheter out. Physician scrubbed out. A Suture was successful obtaining hemostatsis at the Right Femoral artery insertion site. Sheath(s) sutured into position with 2-0 silk and sterile 4x4's and Op-site applied over the site. No oozing or signs and symptoms of hematoma noted. Arterial sheath flushed and connected to tranducer and pressure bag with heparinized saline. Post Procedure: Pulses reassessed and unchanged. PERRLA. Strong, equal hand hospital scientist bilaterally. No VTE prophylaxis required. Medication's Wasted: Lidocaine 1% = 13 mL. Medication's Wasted: Nitro = 49.6 mg. Medication's Wasted: Other = versed 1 mg. Medication's Wasted: Other = fentanyl 50 mcg. Medication's Wasted: Other = adenosine 75 mg. Medication's Wasted: Heparin = 3000 units. Total IV fluids: 75 mL. Contrast type used: Visipaque 320 mgI/mL, 500 mL bottle. Post-op diagnosis: severe mid LAD stenosis. Complications: none. Estimated blood loss: 5mL-10mL. Procedure completed. Patient transferred by bed to 1st floor. Vital chart was stopped. Access Site Site: Right Femoral artery Sheath Size: 6 Fr Hemostasis Method: Suture Hemostasis Success: Successful Procedure Medications Start: 7:21 AM Stop: 7:21 AM Medication: Versed Amount: 1 mg Route: I.V. Start: 7:21 AM Stop: 7:21 AM Medication: Fentanyl Amount: 50 mcg Route: I.V. Start: 7:53 AM Stop: 7:53 AM Medication: Nitrogylcerin Amount: 200 mcg Route: I.C. Start: 8:00 AM Stop: 8:00 AM Medication: Heparin Amount: 6000 units Route: I.V. Start: 8:21 AM Stop: 8:21 AM Medication: Nitrogylcerin Amount: 200 mcg Route: I.C. Start: 8:31 AM Stop: 8:31 AM Medication: Plavix Amount: 300 mg Route: P.O. I, the attending physician, have reviewed and verified all procedure medications. Yes, all medications given per verbal order History/Risk Factors Hypertension: Yes Dyslipidemia: Yes Peripheral Arterial Disease (PAD): Yes Myocardial Infarction ([place]): No Obesity: Yes Renal Disease: Yes Dialysis: Current Prior Interventions PCI: Yes CABG: No Valve Surgery: No Report Signatures Finalized by Dong Pitt MD on 04/22/2020 06:32 PM
--- NOTE | 2020-04-19 07:18 | W.PM.OPSUD ---
Surgery/Procedure H&P Update DATE OF PROCEDURE: April 19, 2020 DATE H&P PERFORMED: 04/18/20 H&P UPDATE INFORMATION: I have reviewed H&P completed within last 30 days, I have examined patient prior to procedure and No changes to prior documentation PREOP DIAGNOSIS: Worsening angina PRIMARY INDICATION FOR PROCEDURE: Worsening angina PLANNED PROCEDURE: Operation Date: 04/19/20 07:00 Proposed Procedures p Cardiac Catheterization(Left) with possible percutaneous coronary intervention- Dong Pitt M.D PATIENT REASSESSED PRIOR TO SEDATION, WITH NO CHANGE NOTED: Yes PHYSICAL EXAM: alert, oriented x 3 and clear to auscultation bilaterally AIRWAY EVAL/ANESTHESIA PLAN: ASA III, Risks, benefits & alternatives of sedation and/or procedure discussed and Patient agrees to continue as planned
[2020-04-19] MEDS: magnesium sulfate premix 2 GM/50 ML PIGGYBACK IV (10:38)
[2020-04-19] MEDS: ondansetron 2 mg/ML SDV 2 mL 4 MG IVP ×2 (10:38→17:15)
[2020-04-19] MEDS: potassium chloride ER 20 mEq Tablet 40 MEQ PO (11:17)
--- NOTE | 2020-04-19 11:30 | P.PN_ITS ---
Subjective Subjective: Interval history: Mrs Herzog is seen immediately post left heart cath. The nurse reports she did have a single stent placed. She is somewhat drowsy, however, she does appear to be comfortable. Peritoneal dialysis is going well, with comfortable and in outflow peritoneal dialysis fluid. Exit site looks clear. PD fluid looks clear. Hemodynamics reviewed, appears stable. Vitals/I&O/Wt Last Vital Signs Temp 98.0 F 04/19/20 05:36 Pulse 59 L 04/19/20 09:30 Resp 22 H 04/19/20 10:38 BP 128/65 04/19/20 09:30 Pulse Ox 98 04/19/20 09:30 04/18/20 04/19/20 04/19/20 22:59 06:59 14:59 Intake Total 360 / 360 Output Total 50 / 50 Balance 310 / 310 Weight last 48 hrs Weight 94.982 kg Weight 96.706 kg Weight 92.986 kg Physical Exam Narrative: EXAM NARRATIVE: Constitutional: Sleepy but comfortable HEENT: Wet mucosa, no jvp, non icteric Lungs: Bilaterally clear without discernible wheeze, rales in all lung zones CVS: S1 S2, no murmurs Abdo: Soft, BS ok, exit site looks good Ext 4: Minimal edema, peripheral perfusion with no cyanosis Neurological: Grossly non-focal Data : 04/19/20 05:27 04/19/20 05:27 A&P Additional A&P Information 1. ESRD on PD - CAPD- 5 exchanges a day alt 1.5% and 2.5% gluc, low ca, 2L fills 2. ACS s/p LHC with stent placement, mgmt per cardiology team 3. Hemodynamics appear stable 4. Anemia of ESRD just below goal, monitor for now Zhou Mcfarland MD Nephrology [phone] Patient seen and examined via telemedicine, with the assistance of the bedside RN Attestations Medical Necessity Statement*: eval for PD mgmt Coding Level of Care Code Acute Allergy And Immunology Specialist for [facility]
[2020-04-19 11:47] LABS: Partial Thromboplastin Time 132.8 SECONDS (23.9-36.7)
[2020-04-19 12:22] LABS: Glucose Point of Care 123 mg/dL (70-110)
--- NOTE | 2020-04-19 13:02 | PM.PN ---
Subjective Subjective: Interval history: Patient had been having chest pain symptoms. She underwent coronary angiography this morning which showed 70% mid LAD stenosis post prior stent. We performed FFR which was abnormal with a reading of 0.76. Successful revascularization was performed with ENRIQUE x1. Patient also has distal left circumflex/OM disease. These are small vessels. PCI was not performed on these relatively small sized vessels. She is feeling well. Denies complaints of chest pain, shortness of breath or palpitations. Vitals/I&O/Wt Last Vital Signs Temp 98.1 F 04/19/20 11:45 Pulse 55 L 04/19/20 11:45 Resp 14 04/19/20 11:45 BP 83/46 04/19/20 11:45 Pulse Ox 96 04/19/20 11:45 04/18/20 04/19/20 04/19/20 22:59 06:59 14:59 Intake Total 360 / 360 Output Total 50 / 50 Balance 310 / 310 Weight last 48 hrs Weight 209 lb 6.4 oz Weight 213 lb 3.2 oz Weight 205 lb Physical Exam Narrative: EXAM NARRATIVE: GENERAL: Patient is alert, awake and oriented x3. [] NECK: No jugular vein distension. [] HEENT: No cyanosis. No icterus. No pallor. [] HEART: Regular S1 and S2. No murmur, rub or gallop. [] LUNGS: Clear to auscultate bilaterally. [] ABDOMEN: Soft, nontender and nondistended. Positive bowel sounds. No guarding, rebound or tenderness. [] CENTRAL NERVOUS SYSTEM: Grossly nonfocal. [] EXTREMITIES: Lower extremities with no edema bilaterally. Pulses palpable in the lower extremities, both dorsalis pedis and posterior tibial. [] Data : 04/19/20 05:27 04/19/20 05:27 A&P Assessment and plan (1) Chest pain: Status: Acute (2) CAD (coronary artery disease): Status: Chronic Qualifiers: Coronary Disease-Associated Artery/Lesion type: [place] artery [place] vs. transplanted heart: [place] heart Associated angina: without angina Qualified Code(s): I25.10 - Atherosclerotic heart disease of [place] coronary artery without angina pectoris (3) Diabetes: Status: Acute Qualifiers: Diabetes mellitus type: type 2 Diabetes mellitus terminal press operator insulin use: with fci use Diabetes mellitus complication status: with kidney complications (4) Peripheral vascular disease: Status: Acute (5) Hyperlipidemia: Status: Acute Qualifiers: Hyperlipidemia type: unspecified Qualified Code(s): E78.5 - Hyperlipidemia, unspecified (6) Hypothyroidism: Status: Acute Qualifiers: Hypothyroidism type: acquired Qualified Code(s): E03.9 - Hypothyroidism, unspecified (7) HTN (hypertension): Status: Acute Qualifiers: Hypertension type: unspecified Qualified Code(s): I10 - Essential (primary) hypertension Patient underwent successful revascularization of mid LAD stenosis, he had 70% stenosis post prior stent and FFR was performed that showed a significant value of 0.76. She has distal left circumflex/OM disease. However these are relatively small sized vessels and we will leave them for medical therapy. If blood pressure tolerates, can be started on Imdur and uptitrated. If she becomes hypotensive, Ranexa can be initiated. Continue aspirin and Plavix. High intensity statin therapy. Beta-chyna Thank you for involving us with the care of this patient. Please call with questions. Attestations Medical Necessity Statement*: Care expected to cross 2 midnights. Patient is status post revascularization of the LAD Coding Level of Care Code Acute Surgical Garment Assembly Supervisor for [facility] Fwd Diagnoses Chest pain R07.9 CAD (coronary artery disease) I25.10 Coronary Disease-Associated Artery/Lesion type: [place] artery [place] vs. transplanted heart: [place] heart Associated angina: without angina Diabetes E11.9 Diabetes mellitus type: type 2 Diabetes mellitus terminal press operator insulin use: with fci use Diabetes mellitus complication status: with kidney complications Peripheral vascular disease I73.9 Hyperlipidemia E78.5 Hyperlipidemia type: unspecified Hypothyroidism E03.9 Hypothyroidism type: acquired HTN (hypertension) I10 Hypertension type: unspecified
[2020-04-19 15:06] LABS: Partial Thromboplastin Time 37.7 SECONDS (23.9-36.7)
--- NOTE | 2020-04-19 15:24 | PM.PN ---
Subjective Subjective: Interval history: Rizwana reports she is doing okay after her calf. No chest pain. Medications: Reviewed: Yes Vitals/I&O/Wt Last Vital Signs Temp 98.1 F 04/19/20 11:45 Pulse 60 04/19/20 15:15 Resp 14 04/19/20 15:15 BP 89/43 04/19/20 15:15 Pulse Ox 100 04/19/20 15:15 04/19/20 04/19/20 04/19/20 06:59 14:59 22:59 Intake Total 240 / 240 Balance 240 / 240 Weight last 48 hrs Weight 94.982 kg Weight 96.706 kg Weight 92.986 kg Physical Exam Narrative: EXAM NARRATIVE: General exam no apparent distress Cardiovascular regular rate and rhythm without murmur, no S3 or S4 Lungs clear no wheezing or crackles Abdomen is soft nontender with positive bowel sounds. Peritoneal dialysis catheter noted Extremities no cyanosis clubbing or edema. Groin without significant hematoma Data : 04/19/20 05:27 04/19/20 05:27 A&P Assessment and plan (1) Chest pain: She has had recurrent chest discomfort. Recent previous nuclear stress test demonstrated some reversible ischemia thought to be artifact. Chest discomfort improved with nitroglycerin given in the emergency department. She is currently chest discomfort free. Continue aspirin, Plavix, statin, beta-chyna Cardiology consultation has been obtained and she underwent angiogram today, with intervention to her mid LAD with a drug-eluting stent. Last echo in January 2020 demonstrated normal EF, 2/4 diastolic dysfunction, poor study Status: Acute (2) Hypokalemia: supplement Magnesium level was low and supplemented Status: Acute Additional A&P Information End-stage renal disease on peritoneal dialysis. Appreciate nephrology consultation History of gastroparesis Type 2 diabetes, sliding scale insulin Hyperlipidemia, continue statin Multiple other medical problems as listed in past medical history Needs further monitoring post coronary angiogram. Change to regular admission. Likely discharge tomorrow if no evident complications. Heparin for DVT prophylaxis Attestations Medical Necessity Statement*: Needs continued hospitalization for close monitoring status post angiogram. Coding Level of Care Code Acute Property Insurance Inspector for [facility] Diagnoses Chest pain R07.9 Hypokalemia E87.6
--- NOTE | 2020-04-19 15:38 | PC.NURSE ---
Began draining dialysate at 1430. Assisted patient to change positions x 3 and dialysate onlly 505 drained. Checked all connections with patient.
[2020-04-19 16:35] LABS: Glucose Point of Care 151 mg/dL (70-110)
[2020-04-19] MEDS: sevelamer 800 mg Tablet PO ×2 (16:49→20:20)
--- NOTE | 2020-04-19 17:30 | PC.NURSE ---
Sheath pulled from right groin and pressure held x 30 min by Pooja De Los Santos RN. Site without bleeding or hematoma. New drsg applied.
[2020-04-19] MEDS: metoprolol tartrate 25 mg Tablet 12.5 MG PO (18:08)
[2020-04-19] MEDS: dorzolamide/timolol Op Soln 10 mL Btl EYE-LEFT (18:15)
[2020-04-19] MEDS: brimonidine 0.2% Op Soln 5 mL Btl EYE-LEFT (18:16)
[2020-04-19] MEDS: Dianeal low Ca w/2.5% dex 2,000 mL Bag 2000 ML INTRAPERIT (20:19)
[2020-04-19] MEDS: ALPRAZolam 0.25 mg Tablet PO (20:20)
[2020-04-19] MEDS: acetaminophen 325 mg Tablet 650 MG PO (20:20)
[2020-04-19 20:40] LABS: Glucose Point of Care 227 mg/dL (70-110)
[2020-04-20] VITALS (7 sets, daily range): BP systolic 110–137; BP diastolic 56–66; PULSE 64–70; RESP 14–22; TEMP 36.3–37.4; O2SAT 93–97
[2020-04-20] MEDS: heparin 5,000 unit/mL INJ 1 mL 5000 UNIT SUBCUT (04:37)
[2020-04-20 04:55] LABS: Basophils % 0.5 %; Eosinophils # 0.3 10^3/uL (0.0-0.8); Eosinophils % 4.1 %; Hematocrit 29.7 % (37.0-47.0); Hemoglobin 9.3 g/dL (11.5-15.3); Lymphocytes # 1.3 10^3/uL (0.8-4.8); Lymphocytes % 20.3 %; Mean Corpuscular HGB Conc 31.3 g/dL (30.0-36.0); Mean Corpuscular Hemoglobin 31.6 pg (28.0-34.0); Mean Platelet Volume 11.4 fL (7.4-10.4); Monocytes # 0.5 10^3/uL (0.2-0.9); Monocytes % 7.6 %; Neutrophils # 4.25 10^3/uL (1.8-7.7); Neutrophils % 67.2 %; Nucleated Red Blood Cells % 0 %; Platelet Count 228 10^3/cmm (130-400); Red Blood Count 2.94 10^6/uL (4.1-5.3); Red Cell Distribution Width 13.2 % (12.1-15.1); White Blood Count 6.3 10^3/uL (4.0-10.0)
[2020-04-20] MEDS: Dianeal low Ca w/1.5% dex 2,000 mL Bag 2000 ML INTRAPERIT (05:30)
[2020-04-20 06:35] LABS: Glucose Point of Care 175 mg/dL (70-110)
--- NOTE | 2020-04-20 07:21 | PM.DCS ---
Discharge Providers Date of Admission: 04/19/20 15:32 Date of Discharge: April 20, 2020 Attending Provider at Admission: Luis F Ventura MD Attending Provider at Discharge: Antione Sullivan MD Primary Care Provider: Yovany Leonardo MD Diagnoses at Discharge Discharge Diagnosis (1) Chest pain: Status: Acute Permanent problem details: Worsening angina (2) Hypokalemia: Status: Acute (3) DOROTEO on CPAP: Status: Acute (4) ESRD (end stage renal disease): Status: Acute (5) CAD (coronary artery disease): Status: Chronic Qualifiers: Coronary Disease-Associated Artery/Lesion type: [place] artery [place] vs. transplanted heart: [place] heart Associated angina: without angina Qualified Code(s): I25.10 - Atherosclerotic heart disease of [place] coronary artery without angina pectoris (6) GERD (gastroesophageal reflux disease): Status: Acute (7) Hyperlipidemia: Status: Acute Qualifiers: Hyperlipidemia type: unspecified Qualified Code(s): E78.5 - Hyperlipidemia, unspecified (8) Hypothyroidism: Status: Acute Qualifiers: Hypothyroidism type: acquired Qualified Code(s): E03.9 - Hypothyroidism, unspecified (9) Diabetes: Status: Acute Permanent problem details: Insulin-dependent Qualifiers: Diabetes mellitus type: type 2 Diabetes mellitus usp insulin use: with long term care administrator use Diabetes mellitus complication status: with kidney complications (10) Chronic diastolic CHF (congestive heart failure): Status: Acute Permanent problem details: Compensated currently (11) Peritoneal dialysis catheter in place: Status: Acute (12) End stage renal disease: Status: Acute (13) Unstable angina: Status: Acute Reason for Visit Reason for Visit: Chest Pain, N/V Hospital Course Hospital Course Patient with underlying peripheral vascular disease as well as coronary artery disease presented with unstable angina and underwent further evaluation with coronary angiogram revealing mid LAD 70% occlusion. After abnormal FFP test patient had drug-eluting stent placed. Patient tolerated procedure well and this morning denies any shortness of breath or chest pain. Denies abdominal pain. She is getting her peritoneal dialysis and will continue with the same at home. Reports that she has no issues with peritoneal dialysis at home. I had extensive discussion with patient regarding importance of medical compliance and not to miss or skip Plavix. Patient voiced understanding. Patient does not use oxygen at home and does use BiPAP for obstructive sleep apnea. Outpatient follow-up with primary care physician as well as cardiology will be made. Physical Exam Const: COMMON NORMALS: no acute distress and patient oriented x3 Resp: COMMON NORMALS: normal respiratory effort and clear to auscultation bilaterally AUSCULTATION: clear to auscultation bilaterally Cardio: COMMON NORMALS: regular rate, regular rhythm and S2 normal heart sound present RATE: regular rate RHYTHM: regular rhythm HEART SOUNDS: S2 normal heart sound present OTHER: No lower extremity edema and left lower extremity. Patient has a right below-knee amputation. GI: COMMON NORMALS: Normal to inspection, nondistended, normoactive bowel sounds present, Soft to palpation and non-tender PALPATION: Yes Soft to palpation OTHER: Peritoneal dialysis catheter intact Neuro: COMMON NORMALS: patient oriented x3 and no focal motor deficits OTHER: No evidence of tremors or orofacial dyskinesia. Discharge Data Data Completed and Pending: Completed Studies During Hospitalization Category Date Time Status XR chest 1V sandra ble [id number] Stat Exams 04/18/20 07:17 Completed Pending at discharge Category Date Time Status TRACER CLERK request for service Routin e Exams 04/19/20 06:52 Taken Comprehensive Met abolic Panel AM LA BS Lab 04/20/20 04:08 Received Comprehensive Met abolic Panel AM LA BS Lab 04/21/20 04:00 Ordered Magnesium AM LABS Lab 04/20/20 04:08 Received Magnesium AM LABS Lab 04/21/20 04:00 Ordered Phosphorus AM LAB S Lab 04/20/20 04:08 Received Phosphorus AM LAB S Lab 04/21/20 04:00 Ordered Wound Culture [place] Lab 04/18/20 16:40 Received Labs from last 24 hours 04/20/20 04/20/20 04/20/20 06:31 04:08 04:08 WBC 6.3 RBC 2.94 L Hgb 9.3 L Hct 29.7 L MCV 101.0 H D MCH 31.6 MCHC 31.3 D RDW 13.2 Plt Count 228 MPV 11.4 H Neut % (Auto) 67.2 Lymph % (Auto) 20.3 [place] % (Auto) 7.6 Eos % (Auto) 4.1 Baso % (Auto) 0.5 Neut # (Auto) 4.25 Lymph # (Auto) 1.3 [place] # (Auto) 0.5 Eos # (Auto) 0.3 Baso # (Auto) 0.0 Nucleated RBC % (a uto) 0 Nucleated RBCs # 0.0 APTT Sodium Pending Potassium Pending Chloride Pending Carbon Dioxide Pending Anion Gap Pending BUN Pending Creatinine Pending GFR Calculation Pending Glucose Pending POC Glucose 175 Calculated Osmolal ity Pending Calcium Pending Phosphorus Pending Magnesium Pending Total Bilirubin Pending AST Pending ALT Pending Alkaline Phosphata se Pending Total Protein Pending Albumin Pending Globulin Pending 04/19/20 04/19/20 04/19/20 20:24 16:27 14:30 WBC RBC Hgb Hct MCV MCH MCHC RDW Plt Count MPV Neut % (Auto) Lymph % (Auto) [place] % (Auto) Eos % (Auto) Baso % (Auto) Neut # (Auto) Lymph # (Auto) [place] # (Auto) Eos # (Auto) Baso # (Auto) Nucleated RBC % (a uto) Nucleated RBCs # APTT 37.7 H D Sodium Potassium Chloride Carbon Dioxide Anion Gap BUN Creatinine GFR Calculation Glucose POC Glucose 227 151 Calculated Osmolal ity Calcium Phosphorus Magnesium Total Bilirubin AST ALT Alkaline Phosphata se Total Protein Albumin Globulin 04/19/20 04/19/20 11:59 11:15 WBC RBC Hgb Hct MCV MCH MCHC RDW Plt Count MPV Neut % (Auto) Lymph % (Auto) [place] % (Auto) Eos % (Auto) Baso % (Auto) Neut # (Auto) Lymph # (Auto) [place] # (Auto) Eos # (Auto) Baso # (Auto) Nucleated RBC % (a uto) Nucleated RBCs # APTT 132.8 H Sodium Potassium Chloride Carbon Dioxide Anion Gap BUN Creatinine GFR Calculation Glucose POC Glucose 123 Calculated Osmolal ity Calcium Phosphorus Magnesium Total Bilirubin AST ALT Alkaline Phosphata se Total Protein Albumin Globulin Vitals: Last Vital Signs Temp 99.3 F 04/20/20 03:55 Pulse 64 04/20/20 03:55 Resp 14 04/20/20 03:55 BP 110/56 04/20/20 03:55 Pulse Ox 96 04/20/20 03:55 Discharge Plan Discharge Patient Disposition: Home Condition: Stable Prescriptions: New sevelamer carbonate 800 mg Tablet 800 mg PO TID Qty: 90 RF: 0 Continued nitroglycerin 0.4 mg tablet, sublingual 0.4 mg SUBLINGUAL Q5M PRN (Reason: Chest Pain) Qty: 25 RF: 6 levothyroxine 112 mcg tablet 224 mcg PO DAILY Qty: 30 RF: 3 atorvastatin 40 mg tablet 40 mg PO DAILY Qty: 30 RF: 5 aspirin 81 mg Tablet,Chewable 81 mg PO DAILY RF: 0 Auryxia 210 mg iron tablet See Rx Instructions .ROUTE .COMPLEX RF: 0 pantoprazole 40 mg tablet,delayed release (DR/EC) 40 mg PO DAILY RF: 0 Rocklatan 0.02-0.005 % Drops 1 drp OPHTHALMIC (EYE) BEDTIME RF: 0 sennosides-docusate sodium 8.6-50 mg tablet 1 tab PO DAILY RF: 0 metoprolol tartrate 25 mg tablet 12.5 mg PO BID RF: 0 Lantus Solostar U-100 Insulin 100 unit/mL (3 mL) insulin pen 50 unit SUBCUT BID RF: 0 multivitamin [Multiple Vitamins] Tablet 1 tab PO DAILY RF: 0 paricalcitol [Zemplar] 1 mcg capsule See Rx Instructions .ROUTE .COMPLEX RF: 0 coenzyme Q10 [CoQ-10] 100 mg Capsule 100 mg PO DAILY RF: 0 cholecalciferol (vitamin D3) [Vitamin D3] 25 mcg (1,000 unit) Tablet,Chewable 25 mcg PO DAILY RF: 0 omega 8-odw-guc-fish oil [Fish Oil] 300-1,000 mg Capsule,Delayed Release(Dr/Ec) 1 cap PO DAILY RF: 0 brimonidine 0.2 % drops See Rx Instructions .ROUTE .COMPLEX RF: 0 dorzolamide-timolol 22.3-6.8 mg/mL drops See Rx Instructions .ROUTE .COMPLEX RF: 0 clopidogrel 75 mg Tablet 75 mg PO DAILY Qty: 30 RF: 0 metoclopramide HCl 10 mg Tablet 5 mg PO AC&BEDTIME PRN (Reason: Nausea) Qty: 20 RF: 0 Discharge Orders: Discharge Order (Routine); Ordered 04/20/20 Ordered By: Antione Sullivan Referrals: Yovany Leonardo MD [Primary Care Provider] - 4-7 days Dong Pitt M.D [Physician] - 1 week Discharge Diet: Advance as tolerated Discharge Activity: Resume usual activity and Increase activity as tolerated Patient Instructions: Left Heart Catheterization (DC), Right Heart Catheterization (DC) Activity Restrictions/Additional Instructions: Please call your doctor or present to emergency department if your condition worsens or you develop diarrhea. lightheadedness, dizziness or see blood in your stool or black stool. Please note that you can not miss/skip Plavix as we have discussed unless told otherwise by your rectifying attendant. Please keep blood sugar, blood pressure and heart rate log 3 times daily to present to your primary care physician next visit for medication adjustment. Please continue using your BiPAP at home. Discharge Attestations Time Spent in Discharge Care*: greater than 30 min Status at Discharge: Cognitive status at discharge: cognitively intact, Behavioral status at discharge: cooperative, Quality Metrics Clinical Quality Measures During this hospital stay, did patient experience: None Coding Level of Care Code Acute Cash Reconciliation Specialist for Yarelig Fwd Diagnoses Chest pain R07.9 Hypokalemia E87.6 DOROTEO on CPAP G47.33; Z99.89 ESRD (end stage renal disease) N18.6 CAD (coronary artery disease) I25.10 Coronary Disease-Associated Artery/Lesion type: [place] artery [place] vs. transplanted heart: [place] heart Associated angina: without angina GERD (gastroesophageal reflux disease) K21.9 Hyperlipidemia E78.5 Hyperlipidemia type: unspecified Hypothyroidism E03.9 Hypothyroidism type: acquired Diabetes E11.9 Diabetes mellitus type: type 2 Diabetes mellitus long term care administrator insulin use: with usp use Diabetes mellitus complication status: with kidney complications Chronic diastolic CHF (congestive heart failure) I50.32 Peritoneal dialysis catheter in place Z99.2 End stage renal disease N18.6 Unstable angina I20.0
--- NOTE | 2020-04-20 07:33 | P.PN_ITS ---
Subjective Subjective: Interval history: Patient sleeping comfortably on rounds this morning, it's early and she is a little drowsy. Overnight was uneventful with PD going well, good in and out flow. Hemodynamics are stable. No uremic Sx. No chest pain, palpitations Medications: Reviewed: Yes Vitals/I&O/Wt Last Vital Signs Temp 99.3 F 04/20/20 03:55 Pulse 64 04/20/20 03:55 Resp 14 04/20/20 06:00 BP 110/56 04/20/20 03:55 Pulse Ox 96 04/20/20 06:00 04/19/20 04/20/20 04/20/20 22:59 06:59 14:59 Intake Total 2460 / 2700 Output Total 1875 / 1875 Balance 585 / 825 Weight last 48 hrs Weight 94.982 kg Weight 94.982 kg Weight 96.706 kg Physical Exam Narrative: EXAM NARRATIVE: Constitutional: Sleepy but comfortable HEENT: Wet mucosa, no jvp, non icteric Lungs: Bilaterally clear without discernible wheeze, rales in all lung zones CVS: S1 S2, no murmurs Abdo: Soft, BS ok, exit site looks good Ext 4: Minimal edema, peripheral perfusion with no cyanosis Neurological: Grossly non-focal Data : 04/20/20 04:08 04/19/20 05:27 A&P Additional A&P Information 1. ESRD on PD - CAPD- 5 exchanges a day alt 1.5% and 2.5% gluc, low ca, 2L fills 2. ACS s/p LHC with stent placement, mgmt per cardiology team 3. Hemodynamics appear stable 4. Anemia of ESRD just below goal, monitor for now - likely discharge home today Zhou Mcfarland MD Nephrology [phone] Patient seen and examined via telemedicine, with the assistance of the bedside RN Attestations Medical Necessity Statement*: eval for ESRD and PD mgmt Coding Level of Care Code Acute Experimental Rocketsled Mechanic for Chg Sampson
[2020-04-20] MEDS: b-complex-vitamin c Tablet 1 EACH PO (09:16)
[2020-04-20] MEDS: metoprolol tartrate 25 mg Tablet 12.5 MG PO (09:16)
[2020-04-20] MEDS: sevelamer 800 mg Tablet PO (09:17)
[2020-04-20] MEDS: clopidogrel 75 mg Tablet PO (09:17)
[2020-04-20] MEDS: pantoprazole DR 40 mg Tablet PO (09:17)
[2020-04-20] MEDS: atorvastatin 40 mg Tablet PO (09:17)
[2020-04-20] MEDS: levothyroxine 112 mcg Tablet 224 MCG PO (09:17)
[2020-04-20] MEDS: sennosides-docusate Tablet 1 TAB PO (09:17)
[2020-04-20] MEDS: aspirin 81 mg Chew Tablet PO (09:17)
[2020-04-20] MEDS: dorzolamide/timolol Op Soln 10 mL Btl EYE-LEFT (09:18)
[2020-04-20] MEDS: brimonidine 0.2% Op Soln 5 mL Btl EYE-LEFT (09:18)
[2020-04-20] MEDS: acetaminophen 325 mg Tablet 650 MG PO (09:19)
--- NOTE | 2020-04-20 10:05 | PM.PN ---
Subjective Subjective: Interval history: Cardiology coverage Patient with atherosclerotic heart disease, presenting with recurrent episodes of chest pain. Cardiac catheterization revealed hemodynamically significant lesion in the mid LAD for which he underwent PCI by Dr. Pitt. Currently she seems to be doing okay. She has distal circumflex disease which is going to be treated medically. Denies any chest pain or shortness of breath. No new symptoms. Patient is on peritoneal dialysis. She is going to have a repeat dialysis today at home. Medications: Reviewed: Yes Medication Review Details: Current Medications Acetaminophen (Acetaminophen 325 Mg Tablet) 650 mg PO Q6H PRN PRN Reason: Mild/Mod Pain Or Temp >/= 101 Last Admin: 04/20/20 09:19 Dose: 650 mg Documented by: Al Hydrox/Mg Hydrox/Simethicone (Vikw-Hxd-Txzmeuoij-Maury 30 Ml Udc) 30 ml PO Q15M PRN PRN Reason: INDIGESTION Alprazolam (Alprazolam 0.25 Mg Tablet) 0.25 mg PO Q8H PRN PRN Reason: ANXIETY Last Admin: 04/19/20 20:20 Dose: 0.25 mg Documented by: Aspirin (Aspirin 81 Mg Chew Tablet) 81 mg PO DAILY [facility] Last Admin: 04/20/20 09:17 Dose: 81 mg Documented by: Atorvastatin Calcium (Atorvastatin 40 Mg Tablet) 40 mg PO DAILY [facility] Last Admin: 04/20/20 09:17 Dose: 40 mg Documented by: Atropine Sulfate (Atropine 1 Mg/Ml Sdv 1 Ml) 0.5 mg IVP PRN PRN PRN Reason: Symptomatic bradycardia Brimonidine Tartrate (Brimonidine 0.2% Op Soln 5 Ml Btl) 0 drop EYE-LEFT BID [facility] Last Admin: 04/20/20 09:18 Dose: 1 drop Documented by: Clopidogrel Bisulfate (Clopidogrel 75 Mg Tablet) 75 mg PO DAILY [facility] Last Admin: 04/20/20 09:17 Dose: 75 mg Documented by: Dextrose (Dextrose 50% Syringe 50 Ml) 25 ml IVP ONCE PRN; Protocol PRN Reason: hypoglycemia protocol Dextrose (Dextrose 50% Syringe 50 Ml) 50 ml IVP PRN PRN; Protocol PRN Reason: hypoglycemia protocol Dorzolamide/Timolol (Dorzolamide/Timolol Op Soln 10 Ml Btl) 0 drop EYE-LEFT BID [facility] Last Admin: 04/20/20 09:18 Dose: 1 drop Documented by: Gentamicin Sulfate (Gentamicin 0.1% Cream 15 Gm) 1 applic TOPICAL DAILY [facility] Last Admin: 04/20/20 09:18 Dose: 1 applic Documented by: Glucagon (Glucagon 1 Mg/Ml Inj 1 Ml) 1 mg IM ONCE PRN; Protocol PRN Reason: Adult Acute Hypoglycemia Prot. Heparin Sodium (Beef Lung) (Heparin 5,000 Unit/Ml Inj 1 Ml) 5,000 unit SUBCUT Q12H [facility] Last Admin: 04/20/20 04:37 Dose: 5,000 unit Documented by: Dextrose (D5w) 500 mls @ 100 mls/hr IV ONCE PRN; Protocol PRN Reason: Adult Acute Hypoglycemia Prot Insulin Aspart (Insulin Aspart 100 Unit/1 Ml) 0 unit SUBCUT WM&BEDTIME [facility]; Protocol Last Admin: 04/20/20 09:19 Dose: 2 unit Documented by: Levothyroxine Sodium (Levothyroxine 112 Mcg Tablet) 224 mcg PO DAILY [facility] Last Admin: 04/20/20 09:17 Dose: 224 mcg Documented by: Magnesium Hydroxide (Magnesium Hydroxide 30 Ml Udc) 30 ml PO DAILY PRN PRN Reason: CONSTIPATION Metoprolol Tartrate (Metoprolol Tartrate 25 Mg Tablet) 12.5 mg PO BID [facility] Last Admin: 04/20/20 09:16 Dose: 12.5 mg Documented by: Morphine Sulfate (Morphine 4 Mg/Ml Sdv 1 Ml) 2 mg IVP Q4H PRN PRN Reason: SEVERE PAIN Last Admin: 04/19/20 22:14 Dose: 2 mg Documented by: Multivitamins (D-Ghxrjrw-Iiszaqi C Tablet) 1 each PO DAILY [facility] Last Admin: 04/20/20 09:16 Dose: 1 each Documented by: Naloxone HCl (Naloxone 0.4 Mg/Ml Sdv) 0.1 mg IVP Q2M PRN PRN Reason: RESPIRATORY RATE < 8/MIN Nitroglycerin (Nitroglycerin 0.4 Mg Sublingual Tablet) 0.4 mg SUBLINGUAL Q5M PRN PRN Reason: CHEST PAIN Ondansetron HCl (Ondansetron 2 Mg/Ml Sdv 2 Ml) 4 mg IVP Q6H PRN PRN Reason: NAUSEA AND VOMITING Last Admin: 04/19/20 17:15 Dose: 4 mg Documented by: Pantoprazole Sodium (Pantoprazole Dr 40 Mg Tablet) 40 mg PO DAILY [facility] Last Admin: 04/20/20 09:17 Dose: 40 mg Documented by: Peritoneal Dialysis Solution (Dianeal Low Ca W/1.5% Dex 2,000 Ml Bag) 2,000 ml INTRAPERIT 5XD [facility] Last Admin: 04/20/20 05:30 Dose: 2,000 ml Documented by: Peritoneal Dialysis Solution (Dianeal Low Ca W/2.5% Dex 2,000 Ml Bag) 2,000 ml INTRAPERIT 5XD [facility] Last Admin: 04/20/20 07:31 Dose: Not Given Documented by: Senna/Docusate Sodium (Sennosides-Docusate Tablet) 1 tab PO DAILY [facility] Last Admin: 04/20/20 09:17 Dose: 1 tab Documented by: Sevelamer Carbonate (Sevelamer 800 Mg Tablet) 800 mg PO TID [facility] Last Admin: 04/20/20 09:17 Dose: 800 mg Documented by: Vitals/I&O/Wt Last Vital Signs Temp 99.3 F 04/20/20 03:55 Pulse 64 04/20/20 03:55 Resp 14 04/20/20 06:00 BP 110/56 04/20/20 03:55 Pulse Ox 96 04/20/20 06:00 04/19/20 04/20/20 04/20/20 22:59 06:59 14:59 Intake Total 2460 / 2700 Output Total 1875 / 1875 Balance 585 / 825 Weight last 48 hrs Weight 209 lb 6.4 oz Weight 209 lb 6.4 oz Weight 213 lb 3.2 oz Physical Exam Narrative: EXAM NARRATIVE: GENERAL: The patient is alert and oriented times three. Not in any acute distress. HEENT: No significant pallor, icterus or lymphadenopathy.Oral cavity: There are no mucous membrane lesions. NECK: Trachea appears to be central. No masses noted. No JVD or thyromegaly appreciated. RESPIRATORY: Chest is symmetrical. No intercostals muscle retraction or any accessory muscle activation. There is no chest wall tenderness. Breath sounds are heard bilaterally. No rales or rhonchi heard. No evidence of any consolidation. BREASTS: Deferred. HEART: The heart sounds are normal. No S3 or S4. Short systolic murmur in the left sternal border. No pericardial rub ABDOMEN: Peritoneal dialysis catheter in place. No signs of infection. Bowel sounds are normally heard. : Deferred. RECTAL: Deferred. LYMPHATIC: No lymphadenopathy noted in the neck or groin. EXTREMITIES: Below-knee amputation of the right lower extremity. Dorsalis pedis and posterior tibial pulses on the left are extremely weak MUSCULOSKELETAL: No acute joint deformities or swelling SKIN: There are no significant rashes or ecchymosis NEUROPSYCHIATRIC: The patient is alert and oriented x3. Appears to be in a good mood. No tremors or rigidity noted. Legally blind in the left eye. Impaired vision in the right eye Data : 04/20/20 04:08 04/20/20 04:08 Other Labs: Laboratory Last Values WBC 6.3 10^3/uL (4.0-10.0) 04/20/20 04:08 RBC 2.94 10^6/uL (4.1-5.3) L 04/20/20 04:08 Hgb 9.3 g/dL (11.5-15.3) L 04/20/20 04:08 Hct 29.7 % (37.0-47.0) L 04/20/20 04:08 MCV 101.0 fL (81-99) H D 04/20/20 04:08 MCH 31.6 pg (28.0-34.0) 04/20/20 04:08 MCHC 31.3 g/dL (30.0-36.0) D 04/20/20 04:08 RDW 13.2 % (12.1-15.1) 04/20/20 04:08 Plt Count 228 10^3/cmm (130-400) 04/20/20 04:08 MPV 11.4 fL (7.4-10.4) H 04/20/20 04:08 Neut % (Auto) 67.2 % 04/20/20 04:08 Lymph % (Auto) 20.3 % 04/20/20 04:08 [place] % (Auto) 7.6 % 04/20/20 04:08 Eos % (Auto) 4.1 % 04/20/20 04:08 Baso % (Auto) 0.5 % 04/20/20 04:08 Neut # (Auto) 4.25 10^3/uL (1.8-7.7) 04/20/20 04:08 Lymph # (Auto) 1.3 10^3/uL (0.8-4.8) 04/20/20 04:08 [place] # (Auto) 0.5 10^3/uL (0.2-0.9) 04/20/20 04:08 Eos # (Auto) 0.3 10^3/uL (0.0-0.8) 04/20/20 04:08 Baso # (Auto) 0.0 10^3/uL (0.0-0.1) 04/20/20 04:08 Nucleated RBC % (auto) 0 % 04/20/20 04:08 Nucleated RBCs # 0.0 /100WBC 04/20/20 04:08 PT 13.60 SECONDS (12.1-14.9) 04/18/20 07:43 INR 1.01 (0.8-1.2) 04/18/20 07:43 APTT 37.7 SECONDS (23.9-36.7) H D 04/19/20 14:30 Sodium 136 mmol/L (136-145) 04/19/20 05:27 Potassium 3.4 mmol/L (3.5-5.1) L 04/19/20 05:27 Chloride 96 mmol/L (98-107) L 04/19/20 05:27 Carbon Dioxide 25 mmol/L (22-29) 04/20/20 04:08 Anion Gap 19.4 (5-19) H 04/19/20 05:27 BUN 29 mg/dL (6-20) H 04/19/20 05:27 Creatinine 5.9 mg/dL (0.5-0.9) H* 04/19/20 05:27 GFR Calculation 7.4 mL/min (90-130) L 04/19/20 05:27 Glucose 161 mg/dL (65-115) H 04/19/20 05:27 POC Glucose 175 mg/dL (70-110) 04/20/20 06:31 Calculated Osmolality 291 mOsm/kg (285-295) 04/19/20 05:27 Calcium 8.8 mg/dL (8.5-10.5) 04/20/20 04:08 Phosphorus 6.1 mg/dL (2.5-4.5) H 04/19/20 05:27 Magnesium 2.0 mg/dL (1.7-2.3) 04/20/20 04:08 Total Bilirubin 0.2 mg/dL (0.15-1.2) 04/20/20 04:08 AST 20 U/L (0-32) 04/20/20 04:08 ALT 14 U/L (0-33) 04/20/20 04:08 Alkaline Phosphatase 105 IU/L (35-105) 04/20/20 04:08 Troponin T Baseline 33 ng/L (0-10) H 04/18/20 07:43 Troponin T 120 Minute 36.97 ng/L (0-10) H 04/18/20 10:32 Delta Troponin T 3.97 ABS# (0-10) 04/18/20 10:32 Troponin T Hi Sens 6Hr 39.20 ng/L (0-10) H 04/18/20 13:44 Troponin T Hi Sens 6Hr Delta 6.20 ng/L (0-12) 04/18/20 13:44 NT-Pro-B Natriuret Pep 3734 pg/mL (0-125) H 04/18/20 07:43 Total Protein 5.4 g/dL (6.6-8.7) L 04/19/20 05:27 Albumin 2.8 g/dL (3.5-5.2) L 04/19/20 05:27 Globulin 2.8 g/dL (1.3-4.6) 04/20/20 04:08 A&P Assessment and plan (1) Unstable angina: Currently the patient is pain-free. Status post PCI of the bifurcation lesion at the circumflex/obtuse marginal. Currently seems to be stable. May continue on the current medications. Status: Acute (2) End stage renal disease: Patient on peritoneal dialysis. Advised to continue the same. Status: Acute (3) Carotid stenosis: Currently asymptomatic. May continue on the current measures. Status: Acute Qualifiers: Laterality: bilateral Qualified Code(s): I65.23 - Occlusion and stenosis of bilateral carotid arteries (4) HTN (hypertension): Currently normotensive. Continue on the current medications. Status: Acute Qualifiers: Hypertension type: unspecified Qualified Code(s): I10 - Essential (primary) hypertension (5) Hyperlipidemia: Patient is on atorvastatin. Advised to continue the same. Follow-up evaluation as per the primary. Status: Acute Qualifiers: Hyperlipidemia type: unspecified Qualified Code(s): E78.5 - Hyperlipidemia, unspecified (6) Diabetes: Patient requires aggressive management of diabetes. Evaluations and follow-up as per the primary care. Status: Acute Qualifiers: Diabetes mellitus complication status: with kidney complications Diabetes mellitus fdc insulin use: with exterminator helper termite use Diabetes mellitus type: type 2 Diabetes mellitus complication detail: with chronic kidney disease Chronic kidney disease stage: stage 5, not on chronic dialysis Qualified Code(s): E11.22 - Type 2 diabetes mellitus with diabetic chronic kidney disease; N18.5 - Chronic kidney disease, stage 5; Z79.4 - buttermaker (current) use of insulin (7) Chronic diastolic CHF (congestive heart failure): Clinically compensated. Advised to continue on the current treatment measures. Status: Acute Additional A&P Information If the patient continues to remain stable, may be discharged home today. Follow-up with the heart care services next week with the nurse practitioner. Follow-up with Dr. Pitt in 3 weeks. Attestations Medical Necessity Statement*: Possible discharge home today Coding Level of Care Code Acute Health Administration Teacher for g Fwd Diagnoses Unstable angina I20.0 End stage renal disease N18.6 Carotid stenosis I65.23 Laterality: bilateral HTN (hypertension) I10 Hypertension type: unspecified Hyperlipidemia E78.5 Hyperlipidemia type: unspecified Diabetes E11.22; N18.5; Z79.4 Diabetes mellitus complication status: with kidney complications Diabetes mellitus exterminator helper termite insulin use: with exterminator helper termite use Diabetes mellitus type: type 2 Diabetes mellitus complication detail: with chronic kidney disease Chronic kidney disease stage: stage 5, not on chronic dialysis Chronic diastolic CHF (congestive heart failure) I50.32
[2020-04-20 10:07] LABS: Alanine Aminotransferase 14 U/L (0-33); Albumin Level 2.8 g/dL (3.5-5.2); Alkaline Phosphatase 105 IU/L (35-105); Aspartate Amino Transferase 20 U/L (0-32); Blood Urea Nitrogen 29 mg/dL (6-20); Calcium 8.8 mg/dL (8.5-10.5); Carbon Dioxide 25 mmol/L (22-29); Chloride 93 mmol/L (98-107); Globulin 2.8 g/dL (1.3-4.6); Glomerular Filtration Rate 6.1 mL/min (90-130); Glucose 182 mg/dL (65-115); Osmolality Calculated 284 mOsm/kg (285-295); Sodium 132 mmol/L (136-145); Total Bilirubin 0.2 mg/dL (0.15-1.2); Total Protein 5.6 g/dL (6.6-8.7)
--- NOTE | 2020-04-20 11:10 | PC.CHAP ---
Pastoral Care Encounter/Spiritual Assessment Type of Contact [] Declined radio station engineer visit [] Patient/Family/Request visit [] Outpatient visit [] Follow-up visit [] Physician referral [] Code/Alert [X] Routine visit [] Staff referral [] Actively dying [] Patient sleeping [] Family support [] [] Out of room [] Palliative care [] [] Receiving care in room [] Pre-surgical visit [] Trauma [] Long length of stay [] ICU visit [] Other: Relational/Emotional Strength [X] Patient feels connected with others/family/visitors/staff [] Distress [] Loneliness/isolation [] Abandonment Spirituality of Patient [] Person of Talya [] Attends Religion of their Talya [X] Believes in Prayer [] Reads Bible or Samaritan materials [] There are Spiritual issues to be addressed Coach Mechanic Interventions [] Prayer [] Active listening [X] Non-anxious presence [] Spiritual/emotional support [] Crisis/trauma care [] Spiritual counseling [] Bereavement support [] Provided bereavement packet [] Provided Bible/devotional materials [] Provided toy/stuffed animal, coloring book to patient or family member [] Provided Communion [] Anointing/[place] [] Salvation [] Completed spiritual assessment [] Other: Impact on Illness or Injury [] Angry [] Fearful [] Anxious [] Often cries [] Exhaustion [] Unable to work [] Unable to attend advent [] Unable to walk/stand [] Unable to read [] Unable to drive [] Unable to eat/drink [] Unable to sleep [] Unable to be with family [] Patient intubated [] Other: Summary: Pt admitted for stent procedure. Today, when i met with her she was in pain from a tooth issue. She was open to the visit but was so uncomfortable with the tooth pain that I didn't stay long. She has a lot of folks praying for her and feels connected to her friends and family. Will keep her in prayer. Time spent with patient: <5 mins
[2020-04-20 11:38] LABS: Glucose Point of Care 227 mg/dL (70-110)
== END 2020-04-20 13:00 | disposition home or self-care (01) | DRG 247 ==
LOC: ER 09:20 → CSU 14:45
PROVIDERS: Internal Medicine; Internal Medicine Nephrology; Nurse Practitioner Family; Admitting Provider Internal Medicine; Emergency Provider Family Medicine; PCP Internal Medicine; Visit Provider Internal Medicine
PROC: 027034Z Dilation of Coronary Artery, One Artery with Drug-eluting Intraluminal Device, Percutaneous Approach (ICD-10-PCS; principal; 2020-04-19 07:00)
PROC: 027034Z Dilation of Coronary Artery, One Artery with Drug-eluting Intraluminal Device, Percutaneous Approach (ICD-10-PCS; 2020-04-19 07:00)
DX: I25.119 Atherosclerotic heart disease of native coronary artery with unspecified angina pectoris (principal); I13.2 Hypertensive heart and chronic kidney disease with heart failure and with stage 5 chronic kidney disease, or end stage renal disease; I50.32 Chronic diastolic (congestive) heart failure; N18.5 Chronic kidney disease, stage 5; E11.43 Type 2 diabetes mellitus with diabetic autonomic (poly)neuropathy; E11.51 Type 2 diabetes mellitus with diabetic peripheral angiopathy without gangrene; K31.84 Gastroparesis; F41.1 Generalized anxiety disorder; E11.22 Type 2 diabetes mellitus with diabetic chronic kidney disease; Z99.2 Dependence on renal dialysis; F40.240 Claustrophobia; F32.9 Major depressive disorder, single episode, unspecified; E78.5 Hyperlipidemia, unspecified; E03.9 Hypothyroidism, unspecified; Z89.422 Acquired absence of other left toe(s); Z86.73 Personal history of transient ischemic attack (TIA), and cerebral infarction without residual deficits; E55.9 Vitamin D deficiency, unspecified; Z89.511 Acquired absence of right leg below knee; E87.6 Hypokalemia; I65.23 Occlusion and stenosis of bilateral carotid arteries; G47.33 Obstructive sleep apnea (adult) (pediatric); D63.1 Anemia in chronic kidney disease; Z79.02 Long term (current) use of antithrombotics/antiplatelets; Z79.4 Long term (current) use of insulin; Z79.82 Long term (current) use of aspirin
CPT/HCPCS: 12345; 36415; 36416; 71045; 80053; 82962; 83735; 83880; 84100; 84484; 85025; 85347; 85610; 85730; 87070; 87077; 87186; 90935; 93005; 93454; 93571; 96372; 96375; 99283; C1725; C1769; C1874; C1887; C1894; C9600; G0378; J0153; J1644; J1815; J2250; J2270; J2405; J3010; J3475; J3480; J3490; J7030; J7040; Q0163; Q3014; Q9967

== ENCOUNTER 2020-04-23 17:23 | Observation (INO) | payer MEDICARE, MEDICAID, SELFPAY ==
[2020-04-23 17:32] VITALS: BP 111/47; PULSE 110; RESP 16; TEMP 36.5; O2SAT 98; BMI 35.2
--- NOTE | 2020-04-23 17:46 | XR_ITS ---
WS: [id number] Exam: XR chest 1V portable [id number] Date/Time of Exam: 04/23/2020 5:55 PM Reason For Exam: chest pain, ESRD, weakness Comparison 04/18/2020. Plaque atelectasis at the right infrahilar region. The lungs are otherwise clear and fully expanded. No pleural effusions. Normal cardiomediastinal silhouette and regional bony elements. XR/XR chest 1V portable [id number] IMPRESSION: 1. No acute cardiopulmonary finding.
--- NOTE | 2020-04-23 17:47 | ECG_ITS ---
[facility] Test Date: 2020-04-23 Pat Name: Rizwana Herzog Department: Room: Gender: Female [employer] Dean: : 1965 Requested By: Karan Lepe Order Number: [id number] Catherine MD: Soraya Ignacio M.D. Measurements Intervals [place] Rate: 68 P: -80 OK: 151 QRS: -56 QRSD: 81 T: 229 QT: 367 QTc: 392 Interpretive Statements ECTOPIC ATRIAL RHYTHM LEFT AXIS DEVIATION [QRS AXIS < -30] ANTERIOR MYOCARDIAL INFARCTION , OF INDETERMINATE AGE INFERIOR MYOCARDIAL INFARCTION , OF INDETERMINATE AGE Compared to ECG 04/18/2020 13:21:19 Ectopic atrial rhythm now present Left-axis deviation now present Sinus rhythm no longer present Atrial abnormality no longer present Myocardial infarct finding still present Electronically Signed On 04-23-2020 21:39:16 CENA by Soraya Ignacio M.D. [email or web address]/store/[id number]
[2020-04-23 18:24] LABS: Basophils % 0.4 %; Eosinophils # 0.5 10^3/uL (0.0-0.8); Eosinophils % 6.8 %; Hematocrit 28.8 % (37.0-47.0); Hemoglobin 9.5 g/dL (11.5-15.3); Lymphocytes # 1.1 10^3/uL (0.8-4.8); Lymphocytes % 14.6 %; Mean Platelet Volume 10.7 fL (7.4-10.4); Monocytes # 0.5 10^3/uL (0.2-0.9); Monocytes % 6.4 %; Neutrophils # 5.23 10^3/uL (1.8-7.7); Neutrophils % 71.3 %; Nucleated Red Blood Cells % 0 %; Platelet Count 254 10^3/cmm (130-400); Red Blood Count 2.97 10^6/uL (4.1-5.3); White Blood Count 7.3 10^3/uL (4.0-10.0)
[2020-04-23 18:54] VITALS: BP 139/70; PULSE 67; RESP 16; O2SAT 93
[2020-04-23 19:00] LABS: Alanine Aminotransferase 11 U/L (0-33); Alkaline Phosphatase 114 IU/L (35-105); Anion Gap 16.7 (5-19); Aspartate Amino Transferase 11 U/L (0-32); Blood Urea Nitrogen 34 mg/dL (6-20); Calcium 9.2 mg/dL (8.5-10.5); Carbon Dioxide 28 mmol/L (22-29); Chloride 90 mmol/L (98-107); Globulin 2.8 g/dL (1.3-4.6); Glomerular Filtration Rate 4.3 mL/min (90-130); Glucose 116 mg/dL (65-115); Osmolality Calculated 281 mOsm/kg (285-295); Potassium 3.7 mmol/L (3.5-5.1); Sodium 131 mmol/L (136-145); Total Bilirubin 0.2 mg/dL (0.15-1.2); Total Protein 5.8 g/dL (6.6-8.7)
[2020-04-23 19:10] LABS: INR 0.97 (0.8-1.2)
[2020-04-23 19:24] LABS: Troponin(5th) Baseline 41 ng/L (0-10)
--- NOTE | 2020-04-23 19:35 | ED_ITS ---
HPI - Weakness General: Chief complaint: Weakness Stated complaint: nausea, weakness, fatigue Time Seen by Provider: 04/23/20 17:46 History of Present Illness: HPI Narrative: This patient is a 55-year-old female who is on peritoneal dialysis. She presents today with feeling weak and ill. She has been having dry heaves and some abdominal discomfort. She denies fevers. She has been having chills though. She was here last week and had a stent placed for cardiac ischemia. Is not clear if she had an actual heart attack or not. Since then she has been compliant with her medications. She has been compliant with her peritoneal dialysis. Last night she did do well with yellow instead of her usual green and purple because she had not been eating. Associated symptoms: Reports chest pain, chills and nausea; Denies easy bruising, fever(s), headache(s) or vomiting Review of Systems General: Reports: 10 or more systems reviewed and unremarkable except in HPI and below Const: Reports: chills, fatigue and malaise; Denies: fever(s) Eyes: Denies: change in vision ENMT: Denies: odynophagia Card: Reports: chest pain and dyspnea on exertion; Denies: swelling of feet/ankles Resp: Denies: dyspnea, productive cough or non-productive cough GI: Reports: abdominal pain and nausea; Denies: vomiting : Denies: flank pain or difficulty voiding Musc: Denies: neck pain or back pain Skin/Breast: Denies: rash Neuro: Denies: headache(s), numbness in extremities or weakness in extremities Refugio/Lymph: Denies: easy bruising or easy bleeding PFS ED PFSH: Medical History Anxiety CAD (coronary artery disease) Chronic diastolic CHF (congestive heart failure) Compensated currently Chronic kidney disease, stage V Claustrophobia Depression Diabetes Insulin-dependent End stage renal disease ESRD (end stage renal disease) Gastroparesis GERD (gastroesophageal reflux disease) HTN (hypertension) Hyperlipidemia Hypothyroidism Partial nontraumatic amputation of left foot (~06/2019) Peripheral vascular disease TIA (transient ischemic attack) Vitamin D deficiency Surgical History History of appendectomy History of heart artery stent History of hysterectomy History of left heart catheterization History of right below knee amputation Peritoneal dialysis catheter in place S/P cholecystectomy S/P PICC central line placement Status post amputation of toe Family History Denies family history of CAD (coronary artery disease) Clotting disorder Dementia Bleeding disorder Social History Smoking and tobacco status: never smoked Alcohol intake: never Household members: spouse and family History of recent travel: No Physical Exam Const: COMMON NORMALS: no acute distress, patient oriented x3, no limitations and alert GENERAL APPEARANCE: cooperative, comfortable, ill appearing and other (Pale) NUTRITIONAL APPEARANCE: overweight HENMT: HEAD & SCALP: normal to inspection FACE & SINUS: normal facial exam Eye: GENERAL EYE: appearance normal, both eyes and all related structures Neck/C-Spine: COMMON NORMALS: supple, no meningeal signs and no JVD Chest: COMMONS NORMALS: normal inspection of the chest Resp: COMMON NORMALS: normal respiratory effort, No use of accessory muscles and clear to auscultation bilaterally AUSCULTATION: clear to auscultation bilaterally Cardio: COMMON NORMALS: no JVD, regular rate, regular rhythm and No murmurs present (Cardio) RATE: regular rate RHYTHM: regular rhythm GI: COMMON NORMALS: Normal to inspection, nondistended, normoactive bowel sounds present and Soft to palpation INSPECTION: Yes normal to inspection (PD catheter in place) AUSCULTATION: Yes normoactive bowel sounds PALPATION: Yes Soft to palpation and Yes Tenderness to palpation present (GI) (Diffusely) Back/Pelvis: COMMON NORMALS: thoracic and lumbar spine normal to inspection Extremity: COMMON NORMALS: normal to inspection Neuro: COMMON NORMALS: patient oriented x3, moves all extremities, no focal motor deficits and no sensory deficits noted SENSORIUM/ORIENTATION: Yes alert MENINGEAL SIGNS: Yes no meningeal signs Psych: COMMON NORMALS: mental status grossly normal, cooperative and normal affect Skin: COMMON NORMALS: no rashes or lesions noted and turgor normal GENERAL SKIN EXAM: no rashes or lesions noted and turgor normal Course ED course: Patient is a peritoneal dialysis patient who presents with malaise for close to a week. She came in with similar symptoms in addition to chest pain on and ended up with a stent. She has not really had much chest pain since then but the other symptoms have continued. Is not clear exactly what is causing this. Her work-up was unremarkable other than her known renal failure and anemia. Peritoneal fluid was sent and does not appear acutely infected however I did cover her with antibiotics due to her abdominal tenderness. She will be admitted to the hospitalist. I spoke to Dr. Burdick and to Dr. Donahue for nephrology. Vital Signs: Vital signs: Vital Signs Temperature 97.6 F 04/24/20 01:39 Pulse Rate 58 L 04/24/20 01:39 Respiratory Rate 18 04/24/20 01:39 Blood Pressure 114/68 04/24/20 01:39 Pulse Oximetry 95 04/24/20 01:39 MDM - Weakness Lab Data: Labs: Lab Results 04/23/20 04/23/20 04/23/20 Range/Units 00:25 18:20 18:20 WBC 7.3 (4.0-10.0) 10^3/ uL RBC 2.97 L (4.1-5.3) 10^6/u L Hgb 9.5 L (11.5-15.3) g/dL Hct 28.8 L (37.0-47.0) % MCV 97.0 (81-99) fL MCH 32.0 (28.0-34.0) pg MCHC 33.0 (30.0-36.0) g/dL RDW 13.0 (12.1-15.1) % Plt Count 254 (130-400) 10^3/c mm MPV 10.7 H (7.4-10.4) fL Neut % (Auto) 71.3 % Lymph % (Auto) 14.6 % [place] % (Auto) 6.4 % Eos % (Auto) 6.8 % Baso % (Auto) 0.4 % Neut # (Auto) 5.23 (1.8-7.7) 10^3/u L Lymph # (Auto) 1.1 (0.8-4.8) 10^3/u L [place] # (Auto) 0.5 (0.2-0.9) 10^3/u L Eos # (Auto) 0.5 (0.0-0.8) 10^3/u L Baso # (Auto) 0.0 (0.0-0.1) 10^3/u L Nucleated RBC % (a uto) 0 % Nucleated RBCs # 0.0 /100WBC PT 13.20 (12.1-14.9) SECO NDS INR 0.97 (0.8-1.2) Sodium (136-145) mmol/L Potassium (3.5-5.1) mmol/L Chloride (98-107) mmol/L Carbon Dioxide (22-29) mmol/L Anion Gap (5-19) BUN (6-20) mg/dL Creatinine (0.5-0.9) mg/dL GFR Calculation (90-130) mL/min Glucose (65-115) mg/dL Calculated Osmolal ity (285-295) mOsm/k g Calcium (8.5-10.5) mg/dL Phosphorus (2.5-4.5) mg/dL Magnesium (1.7-2.3) mg/dL Total Bilirubin (0.15-1.2) mg/dL AST (0-32) U/L ALT (0-33) U/L Alkaline Phosphata se (35-105) IU/L Troponin T Baselin e (0-10) ng/L Troponin T 120 Min [place] (0-10) ng/L Delta Troponin T (0-10) ABS# Troponin T Hi Sens 6Hr 46.95 H (0-10) ng/L Troponin T Hi Sens 6Hr Delta Not Reportable Total Protein (6.6-8.7) g/dL Albumin (3.5-5.2) g/dL Globulin (1.3-4.6) g/dL Peritoneal Color (Pale Yellow) Peritoneal Appeara nce (Clear) Peritoneal WBC /uL Peritoneal RBC 10^3/uL Periton Mononu # A uto 10^3/uL Mononuclear WBCs % % Polynuclear WBCs % % Perit Polynuc WBCs # 10^3/uL Peritoneal Diff Co mmnt 04/23/20 04/23/20 04/23/20 Range/Units 18:20 18:20 19:41 WBC (4.0-10.0) 10^3/ uL RBC (4.1-5.3) 10^6/u L Hgb (11.5-15.3) g/dL Hct (37.0-47.0) % MCV (81-99) fL MCH (28.0-34.0) pg MCHC (30.0-36.0) g/dL RDW (12.1-15.1) % Plt Count (130-400) 10^3/c mm MPV (7.4-10.4) fL Neut % (Auto) % Lymph % (Auto) % [place] % (Auto) % Eos % (Auto) % Baso % (Auto) % Neut # (Auto) (1.8-7.7) 10^3/u L Lymph # (Auto) (0.8-4.8) 10^3/u L [place] # (Auto) (0.2-0.9) 10^3/u L Eos # (Auto) (0.0-0.8) 10^3/u L Baso # (Auto) (0.0-0.1) 10^3/u L Nucleated RBC % (a uto) % Nucleated RBCs # /100WBC PT (12.1-14.9) SECO NDS INR (0.8-1.2) Sodium 131 L (136-145) mmol/L Potassium 3.7 (3.5-5.1) mmol/L Chloride 90 L (98-107) mmol/L Carbon Dioxide 28 (22-29) mmol/L Anion Gap 16.7 (5-19) BUN 34 H (6-20) mg/dL Creatinine 9.5 H* (0.5-0.9) mg/dL GFR Calculation 4.3 L (90-130) mL/min Glucose 116 H (65-115) mg/dL Calculated Osmolal ity 281 L (285-295) mOsm/k g Calcium 9.2 (8.5-10.5) mg/dL Phosphorus (2.5-4.5) mg/dL Magnesium (1.7-2.3) mg/dL Total Bilirubin 0.2 (0.15-1.2) mg/dL AST 11 (0-32) U/L ALT 11 (0-33) U/L Alkaline Phosphata se 114 H (35-105) IU/L Troponin T Baselin e 41 H (0-10) ng/L Troponin T 120 Min [place] 41.03 H (0-10) ng/L Delta Troponin T 0.03 (0-10) ABS# Troponin T Hi Sens 6Hr (0-10) ng/L Troponin T Hi Sens 6Hr Delta Total Protein 5.8 L (6.6-8.7) g/dL Albumin 3.0 L (3.5-5.2) g/dL Globulin 2.8 (1.3-4.6) g/dL Peritoneal Color (Pale Yellow) Peritoneal Appeara nce (Clear) Peritoneal WBC /uL Peritoneal RBC 10^3/uL Periton Mononu # A uto 10^3/uL Mononuclear WBCs % % Polynuclear WBCs % % Perit Polynuc WBCs # 10^3/uL Peritoneal Diff Co mmnt 04/23/20 04/23/20 Range/Units 19:41 20:40 WBC (4.0-10.0) 10^3/ uL RBC (4.1-5.3) 10^6/u L Hgb (11.5-15.3) g/dL Hct (37.0-47.0) % MCV (81-99) fL MCH (28.0-34.0) pg MCHC (30.0-36.0) g/dL RDW (12.1-15.1) % Plt Count (130-400) 10^3/c mm MPV (7.4-10.4) fL Neut % (Auto) % Lymph % (Auto) % [place] % (Auto) % Eos % (Auto) % Baso % (Auto) % Neut # (Auto) (1.8-7.7) 10^3/u L Lymph # (Auto) (0.8-4.8) 10^3/u L [place] # (Auto) (0.2-0.9) 10^3/u L Eos # (Auto) (0.0-0.8) 10^3/u L Baso # (Auto) (0.0-0.1) 10^3/u L Nucleated RBC % (a uto) % Nucleated RBCs # /100WBC PT (12.1-14.9) SECO NDS INR (0.8-1.2) Sodium (136-145) mmol/L Potassium (3.5-5.1) mmol/L Chloride (98-107) mmol/L Carbon Dioxide (22-29) mmol/L Anion Gap (5-19) BUN (6-20) mg/dL Creatinine (0.5-0.9) mg/dL GFR Calculation (90-130) mL/min Glucose (65-115) mg/dL Calculated Osmolal ity (285-295) mOsm/k g Calcium (8.5-10.5) mg/dL Phosphorus 5.8 H (2.5-4.5) mg/dL Magnesium 1.8 (1.7-2.3) mg/dL Total Bilirubin (0.15-1.2) mg/dL AST (0-32) U/L ALT (0-33) U/L Alkaline Phosphata se (35-105) IU/L Troponin T Baselin e (0-10) ng/L Troponin T 120 Min [place] (0-10) ng/L Delta Troponin T (0-10) ABS# Troponin T Hi Sens 6Hr (0-10) ng/L Troponin T Hi Sens 6Hr Delta Total Protein (6.6-8.7) g/dL Albumin (3.5-5.2) g/dL Globulin (1.3-4.6) g/dL Peritoneal Color Colorless (Pale Yellow) Peritoneal Appeara nce Clear (Clear) Peritoneal WBC 15 /uL Peritoneal RBC 0 10^3/uL Periton Mononu # A uto 0.010 10^3/uL Mononuclear WBCs % 66.700 % Polynuclear WBCs % 33.300 % Perit Polynuc WBCs # 0.005 10^3/uL Peritoneal Diff Co mmnt Yes Discharge Plan Discharge Patient Disposition: Admitted As Inpatient Admit Provider: Daksha Burdick Condition: Stable Coding Level of Care Code ED Traffic Checker for Maris Braden
--- NOTE | 2020-04-23 19:47 | ECG_ITS ---
[facility] Test Date: 2020-04-23 Pat Name: Rizwana Herzog Department: Room: Gender: Female Emergency Planner: : 1965 Requested By: Karan Lepe Order Number: [id number] Catherine MD: Soraya Ignacio M.D. Measurements Intervals [place] Rate: 69 P: -34 SC: 208 QRS: -23 QRSD: 85 T: 224 QT: 380 QTc: 410 Interpretive Statements SINUS RHYTHM ANTERIOR MYOCARDIAL INFARCTION , OF INDETERMINATE AGE [40+ ms Q WAVE AND/OR ST/T ABNORMALITY IN V3/V4] MODERATE T-WAVE ABNORMALITY, CONSIDER INFERIOR ISCHEMIA [-0.1+ mV T WAVE IN II/aVF] Compared to ECG 04/23/2020 17:44:10 T-wave abnormality now present Possible ischemia now present Ectopic atrial rhythm no longer present Left-axis deviation no longer present Myocardial infarct finding still present Electronically Signed On 04-23-2020 21:48:21 MAITRE D' by Soraya Ignacio M.D. [id number]
[2020-04-23] MEDS: ceFOXitin 2,000 MG in sodium chloride 0.9% (plus) 50 ML 100 MG IV (19:48)
[2020-04-23 20:00] VITALS: BP 127/66; BP 129/66; PULSE 71; RESP 18; O2SAT 97
[2020-04-23 20:20] LABS: Troponin 5 2HR 41.03 ng/L (0-10); Troponin 5 2HR Delta 0.03 ABS# (0-10)
[2020-04-23 20:57] LABS: Polynuclear # Cells, Perit 0.005 10^3/uL
[2020-04-23] MEDS: ondansetron 2 mg/ML SDV 2 mL 4 MG IVP (20:57)
[2020-04-23 21:00] VITALS: BP 129/73; PULSE 55; RESP 94; O2SAT 94
[2020-04-23 21:09] LABS: Appearance, Peritoneal Fluid Clear (Clear); Color, Peritoneal Fluid Colorless (Pale Yellow); RBC Pertioneal Fluid 0 10^3/uL
[2020-04-23 21:10] LABS: Pathology Referral Yes; WBC Peritoneal Fluid 15 /uL
--- NOTE | 2020-04-23 21:52 | PC.NURSE ---
stent dressing changed with non stick Telfa pad and tegaderm dressing after area cleansed with iodine. No redness or drainage noted
[2020-04-23 22:00] VITALS: BP 111/63; PULSE 65; RESP 14; O2SAT 90
--- NOTE | 2020-04-23 22:59 | P.HP_ITS ---
Providers/Chief Complaint Primary Care Provider: Yovany Leonardo MD Chief Complaint: DIZZNESS,NAUSEA,WEAKNESS History of Present Illness Rizwana Herzog is a 55 year old female who recently had placement of drug- eluting stent for mid LAD 70% occlusion came in today with chief complaint of nausea, vomiting and dizziness. Patient is stating that her symptoms started on Wednesday with dry heaves, nausea and dizziness. She is describing dizziness as lightheadedness, which gets aggravated on change in head position, she has not noticed any motor deficit of upper or lower extremity, she is feeling extremely tired and lethargic, not to prevent dry heaves she has not eaten well in last 3 days, she is feeling extremely dehydrated, her last aspirin Plavix dose was today. Of note, she was transferred to [facility] for gastroenterology work-up for persistent nausea, patient is stating that she had EGD done which showed GERD/hiatal hernia and esophagitis. At night she is using AVAPS. She is peritoneal dialysis dependent. Today she presented to the hospital for chief complaint of worsening of lethargy, fatigue and dry heaves. She is endorsing abdominal cramps secondary to dry heaves no severe/excruciating abdominal pain. She makes a little bit of urine, no recent fever, shortness of breath, chest pain, dysuria. Diagnosis in the ER revealed normal hemodynamics, she is not septic, and no leukocytosis, peritoneal dialysate was sent for cell count and culture, no signs of SBP, CT abdomen pelvis did not reveal acute abnormalities, At the time of evaluation patient had positive Chelsea-Hallpike maneuver, she received cefoxitin in the ER which I would not presume, I will decrease her Lantus secondary to poor p.o. intake, consult telemetry state appellate clerk and obtain CT head because of asymmetrical pupils Review of Systems Const: Reports: body aches, change in appetite, fatigue and malaise; Denies: fever(s) Eyes: Reports: change in vision, blurry vision and eye redness (Left-sided eye redness, pupil dilated) ENMT: Denies: throat pain Card: Denies: chest pain Resp: Denies: dyspnea GI: Reports: abdominal pain, nausea and GI cramping; Denies: vomiting, diarrhea or constipation : Denies: flank pain Musc: Reports: muscle cramps; Denies: joint warmth Skin/Breast: Denies: rash or pruritus Neuro: Reports: lack of coordination, dizziness and vertigo Psych: Reports: depression; Denies: anxiety Endo: Denies: polyuria Refugio/Lymph: Denies: easy bruising All/Imm: Denies: urticaria Medications/Allergies Home Medications Medication Instructions Recorded Confirmed Last Taken Type aspirin 81 mg PO DAILY 06/25/19 04/18/20 04/17/20 History multivitamin [Multiple Vitamins] 1 tab PO DAILY 06/30/19 04/18/20 04/17/20 History paricalcitol [Zemplar] See Rx Instructions .ROUTE .COMPLEX 06/30/19 04/18/20 04/17/20 History ferric citrate 210 mg iron tablet See Rx Instructions .ROUTE 09/06/19 04/18/20 04/17/20 History .COMPLEX tab levothyroxine 112 mcg tablet 224 mcg PO DAILY #30 tab 12/11/19 04/18/20 04/17/20 Rx cholecalciferol (vitamin D3) 25 mcg PO DAILY 01/17/20 04/18/20 04/17/20 History [Vitamin D3] coenzyme Q10 [CoQ-10] 100 mg PO DAILY 01/17/20 04/18/20 04/17/20 History omega 9-wvo-wxx-fish oil [Fish Oil] 1 cap PO DAILY 01/17/20 04/18/20 04/17/20 History brimonidine See Rx Instructions .ROUTE .COMPLEX 01/31/20 04/18/20 04/17/20 History dorzolamide-timolol See Rx Instructions .ROUTE .COMPLEX 01/31/20 04/18/20 04/17/20 History pantoprazole 40 mg PO DAILY 02/16/20 04/18/20 04/17/20 History nitroglycerin 0.4 mg sublingual 0.4 mg SUBLINGUAL Q5M PRN #25 tab 03/26/20 04/18/20 04/18/20 Rx tablet atorvastatin 40 mg tablet 40 mg PO DAILY #30 tab 03/27/20 04/18/20 04/17/20 Rx clopidogrel 75 mg PO DAILY #30 tab 04/02/20 04/18/20 04/17/20 Rx metoclopramide HCl 5 mg PO AC&BEDTIME PRN #20 tab 04/02/20 04/18/20 Unknown Rx Lantus Solostar U-100 Insulin 50 unit SUBCUT BID 04/18/20 04/18/20 04/17/20 History Rocklatan 1 drp OPHTHALMIC (EYE) BEDTIME 04/18/20 04/18/20 04/17/20 History metoprolol tartrate 12.5 mg PO BID 04/18/20 04/18/20 04/17/20 History sennosides-docusate sodium 1 tab PO DAILY 04/18/20 04/18/20 04/17/20 History sevelamer carbonate 800 mg PO TID #90 tab 04/20/20 Unknown Rx Allergies Allergy/AdvReac Type Severity Reaction Status Date / Time metformin [From Glucophage] Allergy Severe Unknown Verified 04/18/20 07:02 venlafaxine [From Effexor] Allergy Severe ADR-Shakine Verified 04/18/20 07:02 ss PFSH Acute PFSH: Medical History Anxiety CAD (coronary artery disease) Chronic diastolic CHF (congestive heart failure) Compensated currently Chronic kidney disease, stage V On peritoneal dialysis. Follows with Dr Ann. Claustrophobia Depression Diabetes Insulin-dependent End stage renal disease ESRD (end stage renal disease) Gastroparesis GERD (gastroesophageal reflux disease) HTN (hypertension) Hyperlipidemia Hypothyroidism Partial nontraumatic amputation of left foot (~06/2019) Peripheral vascular disease TIA (transient ischemic attack) Vitamin D deficiency Surgical History History of appendectomy History of heart artery stent History of hysterectomy History of left heart catheterization History of right below knee amputation Peritoneal dialysis catheter in place S/P cholecystectomy S/P PICC central line placement Status post amputation of toe Family History Denies family history of CAD (coronary artery disease) Clotting disorder Dementia Bleeding disorder Social History Smoking and tobacco status: never smoked Alcohol intake: never Household members: spouse and family History of recent travel: No Vitals/I&O/Wt Last Vital Signs Temp 97.7 F 04/23/20 17:32 Pulse 71 04/23/20 20:00 Resp 18 04/23/20 20:00 BP 127/66 04/23/20 20:00 Pulse Ox 97 04/23/20 20:00 Weight last 48 hrs Weight 96.162 kg Physical Exam Narrative: EXAM NARRATIVE: Middle-age obese female who is lying in her bed, she looks very drowsy Extremely dehydrated Dry mucous membranes Asymmetrical pupil, left pupil dilated with some redness, No focal deficit Chelsea-Hallpike maneuver positive S1, S2, clinically looks dehydrated Abdomen soft, distended peritoneal dialysis site nonsensitive, mild tenderness on deep palpation in mid epigastric region otherwise no signs of peritonitis Lower extremity left sided without edema gangrene or ulcer Right BKA Lethargic and drowsy No acute respiratory distress She was only able to sit up in bed with assistance because of dizziness Data : 04/23/20 18:20 04/23/20 18:20 Micro: Microbiology 04/23/20 19:41 Blood Culture - Preliminary Blood SPECIMEN COLLECTED 04/23/20 19:41 Blood Culture - Preliminary Blood SPECIMEN COLLECTED A&P Assessment and plan (1) BPPV (benign paroxysmal positional vertigo): Status: Acute (2) Bradycardia: Status: Acute (3) Hypothyroidism: Status: Acute Qualifiers: Hypothyroidism type: acquired Qualified Code(s): E03.9 - Hypothyroidism, unspecified (4) Diabetes: Status: Acute (5) Chronic kidney disease, stage V: Status: Chronic (6) Gastroparesis: Status: Chronic (7) End stage renal disease: Status: Acute Additional A&P Information Dizziness secondary to BPPV Positive Chelsea-Hallpike maneuver No focal neurological signs however asymmetrical pupil noticed, will obtain CT head without contrast Patient is denying recent falls, facial asymmetry, aspiration. We will start her on meclizine, physical therapy in the morning to see if she would benefit from vestibular rehab Clinically she looks very dry and dehydrated, encourage increased p.o. intake, would avoid IV fluids for now Sinus bradycardia This is chronic, no active chest pain I would resume her aspirin and Plavix, hold AV gauri blocking agent Monitor blood pressure, currently hemodynamically stable Recently had stent placement in LAD, troponin not significantly high Gastroparesis Patient is complaining of nausea and dry heaves, history of gastroparesis, EGD at [facility] showed esophagitis, GERD however official report is not present, will request records Micheal Type 2 diabetes insulin-dependent, I would cut down her Lantus to once daily instead of twice, sliding scale, currently euglycemic, in August A1c level 8.9, follows with Dr. Solis Peritoneal dialysis dependent Peritoneal dialysate did not show any signs of infection, I would not resume her antibiotics, Neutrophils 33% of white count which would be total 4-5 cells Afebrile no leukocytosis Telemetry state appellate clerk consulted Anemia of chronic disease, continue iron, continue calcium and sevelamer Full code Renal dialysis diet DVT prophylaxis Heparin Attestations Medical Necessity Statement*: Anticipating discharge in less than 48 hours continued management for BPPV, gastroparesis, extremely dehydrated Time Spent in Patient Care: (>than 50% of time spent in counselling and/or direct pt care on unit) . 50mins Coding Level of Care Code Acute Manager Medical Affairs for [facility] Fwd Diagnoses BPPV (benign paroxysmal positional vertigo) H81.10 Bradycardia R00.1 Hypothyroidism E03.9 Hypothyroidism type: acquired Diabetes E11.9 Chronic kidney disease, stage V N18.5 Gastroparesis K31.84 End stage renal disease N18.6
[2020-04-23 23:00] VITALS: BP 105/59; PULSE 67; RESP 14; O2SAT 91
--- NOTE | 2020-04-23 23:01 | CTR_ITS ---
PROCEDURE INFORMATION: Exam: CT Abdomen And Pelvis With Contrast Exam date and time: 04/23/2020 11:11 PM Age: 55 years old Clinical indication: Abdominal pain; Generalized; Prior surgery; Surgery type: Cholecystectomy, appendectomy, hysterectomy, dialysis cath; Additional info: Abd pain, pd dependent TECHNIQUE: Imaging protocol: Computed tomography of the abdomen and pelvis with intravenous contrast. Radiation optimization: All CT scans at this facility use at least one of these dose optimization techniques: automated exposure control; mA and/or kV adjustment per patient size (includes targeted exams where dose is matched to clinical indication); or iterative reconstruction. Contrast material: VISI; Contrast volume: 95 ml; Contrast route: INTRAVENOUS (IV); COMPARISON: CT abdomen pelvis wo con [id number] 02/06/2020 6:23 PM RADIATION DOSE METRICS: Total DLP (mGy-cm): 1756.66 FINDINGS: Tubes, catheters and devices: Peritoneal dialysis catheter, unchanged from the previous study. Lungs: Mild atelectasis versus fibrosis noted at the lung bases. Liver: The liver is unremarkable in appearance. Gallbladder and bile ducts: The gallbladder is surgically absent. No biliary dilatation. Pancreas: The pancreas is normal in appearance. Spleen: The spleen is normal in size and appearance. Adrenal glands: The adrenal glands appear within normal limits. Kidneys and ureters: Bilateral renal atrophy. No hydronephrosis. Stomach and bowel: The small bowel is unremarkable as demonstrated. No acute abnormality/inflammatory change of the colon. The stomach is underdistended. No gross gastric abnormality noted. Moderate retained stool throughout the colon. No inflammatory changes of the colon noted. Appendix: No evidence of appendicitis. Intraperitoneal space: Moderate fluid in the abdomen and pelvis. Vasculature: Atherosclerosis of the abdominal aorta. No abdominal aortic aneurysm. Lymph nodes: No pathologically enlarged lymph nodes. Urinary bladder: Urinary bladder is only partially distended. Excreted contrast material is seen in the bladder lumen. The bladder wall appears mildly thickened. Reproductive: The uterus is not visualized, consistent with hysterectomy. Bones/joints: Unremarkable. No acute fracture. Soft tissues: Small umbilical hernia, containing fluid. CT/CT abdomen pelvis w con* [id number] IMPRESSION: 1. Moderate fluid in the abdomen and pelvis. There is a peritoneal dialysis catheter present, which may account for the peritoneal fluid. This is unchanged. 2. Bilateral renal atrophy. No hydronephrosis. 3. Small umbilical hernia, containing fluid. 4. No new abnormality demonstrated, when compared to the prior study. Radiation Dose CTDIVOL = (mGy): DLP = 1756.66 (mGy-cm)
[2020-04-23 23:31] LABS: Magnesium 1.8 mg/dL (1.7-2.3); Phosphorus 5.8 mg/dL (2.5-4.5)
[2020-04-23] MEDS: iodixanol 320 mg/mL 100mL Btl IV (23:39)
[2020-04-23 23:44] LABS: SARS Covid-2 Antigen Negative (Negative)
--- NOTE | 2020-04-23 23:47 | ECG_ITS ---
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: : 1965 Requested By: Karan Lepe Order Number: [id number] Reading MD: ARIEL TUCKER Measurements Intervals [place] Rate: 62 P: -62 TX: 207 QRS: -53 QRSD: 94 T: 138 QT: 406 QTc: 415 Interpretive Statements SINUS RHYTHM LEFT AXIS DEVIATION [QRS AXIS < -30] ANTERIOR MYOCARDIAL INFARCTION , OF INDETERMINATE AGE [40+ ms Q WAVE AND/OR ST/T ABNORMALITY IN V3/V4] POSSIBLE INFERIOR MYOCARDIAL INFARCTION , OF INDETERMINATE AGE [30 ms Q WAVE IN II/aVF] Compared to ECG 04/23/2020 19:32:29 Left-axis deviation now present T-wave abnormality no longer present Possible ischemia no longer present Myocardial infarct finding still present Electronically Signed On 04-24-2020 19:40:33 CLINICAL RECRUITER by ARIEL TUCKER [id number]
--- NOTE | 2020-04-23 23:54 | PC.NURSE ---
pt desat to 87% on R/A. Pt states she is on a BiPap at home. Pt placed on 2lpm of O2 via nasal cannula. Pt sats improved to 98%. [place]
[2020-04-24] VITALS (10 sets, daily range): BP systolic 102–138; BP diastolic 57–77; PULSE 57–68; RESP 14–18; TEMP 36.4–36.9; O2SAT 92–100
[2020-04-24 01:05] LABS: Troponin 5 6HR 46.95 ng/L (0-10)
--- NOTE | 2020-04-24 01:12 | PC.NURSE ---
pt's took pt's prosthetic leg home with him
--- NOTE | 2020-04-24 01:26 | PC.RESP ---
RT checked oxygen sat on pt when pt was in the med surge [facility], waiting for tech to rearrange pt room, pt sats were 80% on room air. Patient would wake up when spoken too. Patient stated that she wears bipap at home but did not know settings. Nurse and marine services technician stated that pt was 99% on 2 lpm in er and that er nurse stated that the pt did not need o2 on transport. RT placed pt on 2 lpm, sats improved to 86%. RT called dr for bipap order. Order received and pt placed on bipap.
--- NOTE | 2020-04-24 01:30 | CTR_ITS ---
PROCEDURE INFORMATION: Exam: CT Head Without Contrast Exam date and time: 04/24/2020 1:41 AM Age: 55 years old Clinical indication: Dizziness; Additional info: Asymmetrical pupiil TECHNIQUE: Imaging protocol: Computed tomography of the head without contrast. Radiation optimization: All CT scans at this facility use at least one of these dose optimization techniques: automated exposure control; mA and/or kV adjustment per patient size (includes targeted exams where dose is matched to clinical indication); or iterative reconstruction. COMPARISON: CT head wo con* [id number] 01/17/2020 10:14 AM RADIATION DOSE METRICS: Total DLP (mGy-cm): 868.26 FINDINGS: Limitations: Motion on several slices. Brain: Continued slight patchy low density in the cerebral white matter bilaterally consistent with chronic ischemic changes. No apparent edema in the brain. No hemorrhage. Cerebral ventricles: Still no ventriculomegaly. Bones/joints: Unremarkable. No acute fracture. Paranasal sinuses: Minimal mucosal thickening in a few paranasal sinuses. Mastoid air cells: Continued slight bilateral mastoid disease. Vasculature: Prominent arterial calcifications again evident. Increased density in multiple vessels consistent with recent contrast injection for the abdomen/pelvis CT. Soft tissues: Unremarkable. CT/CT head wo con* [id number] IMPRESSION: 1. No acute findings. Slight chronic ischemic changes and atherosclerosis again evident. 2. Continued slight bilateral mastoid disease. Radiation Dose CTDIVOL = (mGy): DLP = 868.26 (mGy-cm)
[2020-04-24] MEDS: heparin 5,000 unit/mL INJ 1 mL 5000 UNIT SUBCUT ×3 (02:27→17:54)
[2020-04-24 05:26] LABS: Basophils % 0.5 %; Eosinophils # 0.2 10^3/uL (0.0-0.8); Eosinophils % 2.5 %; Hematocrit 28.8 % (37.0-47.0); Hemoglobin 9.6 g/dL (11.5-15.3); Lymphocytes # 0.9 10^3/uL (0.8-4.8); Lymphocytes % 12.5 %; Mean Corpuscular HGB Conc 33.3 g/dL (30.0-36.0); Mean Corpuscular Hemoglobin 32.3 pg (28.0-34.0); Mean Platelet Volume 11.6 fL (7.4-10.4); Monocytes # 0.5 10^3/uL (0.2-0.9); Monocytes % 6.1 %; Neutrophils # 5.84 10^3/uL (1.8-7.7); Nucleated Red Blood Cells % 0 %; Platelet Count 230 10^3/cmm (130-400); Red Blood Count 2.97 10^6/uL (4.1-5.3); White Blood Count 7.5 10^3/uL (4.0-10.0)
[2020-04-24 06:09] LABS: Anion Gap 18.7 (5-19); Blood Urea Nitrogen 36 mg/dL (6-20); Calcium 9.3 mg/dL (8.5-10.5); Carbon Dioxide 25 mmol/L (22-29); Chloride 92 mmol/L (98-107); Glomerular Filtration Rate 4.2 mL/min (90-130); Glucose 111 mg/dL (65-115); Osmolality Calculated 283 mOsm/kg (285-295); Potassium 3.7 mmol/L (3.5-5.1); Sodium 132 mmol/L (136-145)
[2020-04-24 06:19] LABS: Glucose Point of Care 117 mg/dL (70-110)
--- NOTE | 2020-04-24 07:57 | USCV_ITS ---
Mino Rizwana Age: 55 Gender: F : 1965 Exam Date: 04/24/2020 09:32 Ordering Phys: Calvin Zamorano MD Technologist: Kasandra Lyles Exam Location: [facility] [place] Indication: ANISOCORIA Risk Factors: Previous Vascular Surgery: Right Brachial BP: / Left Brachial BP: / Right Left Velocity (cm/s) Spectral Plaque Velocity (cm/s) Spectral Plaque Syst/Diast Broadening Syst/Diast Broadening 87.10/ 18.70 Prox CCA 80.00 / 15.40 98.10/ 25.40 Mid CCA 53.30 / 15.70 45.20/ 13.20 Distal CCA 53.30 / 13.60 46.60/ 11.40 Prox ICA 142.90/ 50.00 56.40/ 18.40 Mid ICA 132.90/ 31.40 71.70/ 10.80 Distal ICA 153.20/ 27.20 51.30 ECA 78.30 0.73 ICA/CCA 2.88 Antegrade Vertebral Not Visualized 22.10/ 7.90 cm/s / cm/s Tri Subclavian Tri 77.60 91.50 FINDINGS Comparison:. 02/01/20 Mixture of calcified and noncalcified plaque in the bifurcations. Moderate elevation of velocity left ICA with tubulence, no change since 02/01/20. Left vertebral artery not seen today. CONCLUSIONS Left ICA stenosis 50-69%. Right ICA stenosis < 50%. No change since the prior exam. Dr. Shari Santiago DO (Electronically Signed) Final Date: 24 April 2020 10:44 S
--- NOTE | 2020-04-24 07:57 | MR_ITS ---
WS: [id number] MRI BRAIN WITHOUT CONTRAST HISTORY: non-resolving vertigo/nausea/vomiting, anisocoria COMPARISON: 03/25/[address] head 04/24/2020. TECHNIQUE: Diffusion imaging, multiplanar T1, T2 and FLAIR imaging obtained. Examination is limited by motion artifact. No evidence for acute infarct or hemorrhage. Saravia-white matter differentiation is normal. Mild to mod erate chronic microvascular ischemic changes are unchanged. No remote or acute infarcts are volume loss. Ventricles and extra-axial spaces are normal. No inferior displacement of cerebellar tonsils. The sella turcica and pituitary gland are unremarkabl e. Posterior fossa is also unremarkable. Dural venous sinuses and [place] of [place] demonstrate no abnormality on this unenhanced studies. Paranasal sinuses: Clear. Mastoid air cells: Bilateral mild mastoid air cell effusions. Calvarium and scalp: Intact. MR/MR head wo con* [id number] IMPRESSION: 1. No acute infarct or hemorrhage. 2. Mild to moderate chronic microvascular ischemic changes are unchanged since the prior study.
[2020-04-24] MEDS: pantoprazole DR 40 mg Tablet PO (09:03)
[2020-04-24] MEDS: levothyroxine 112 mcg Tablet 224 MCG PO (09:03)
[2020-04-24] MEDS: atorvastatin 40 mg Tablet PO (09:03)
[2020-04-24] MEDS: sennosides-docusate Tablet 1 TAB PO (09:03)
[2020-04-24] MEDS: clopidogrel 75 mg Tablet PO (09:03)
[2020-04-24] MEDS: meclizine 25 mg tablet PO ×2 (09:03→17:54)
[2020-04-24] MEDS: sevelamer 800 mg Tablet PO ×2 (09:03→17:54)
[2020-04-24] MEDS: aspirin 81 mg Chew Tablet PO (09:03)
[2020-04-24] MEDS: cholecalciferol (vitamin D3) 1,000 unit Tablet 1000 UNIT PO (09:03)
[2020-04-24] MEDS: dorzolamide/timolol Op Soln 10 mL Btl 1 DROP EYE-LEFT ×2 (10:02→17:54)
[2020-04-24 12:08] LABS: Glucose Point of Care 168 mg/dL (70-110)
--- NOTE | 2020-04-24 12:57 | P.PN_ITS ---
Subjective Subjective: Interval history: Ms. Herzog is known to me from her recent hospitalization where she did have a stent placed in her LAD. Following her discharge, over the last day or so she developed nausea, vomiting, dizziness, diffuse abdominal pain. She reports her peritoneal dialysis has been going well, with painless and and outflow, and the PD fluid has been nice and clear. Emmett-Hallpike maneuver was positive and so the diagnosis of vertigo is now on the cards as well as some elements of gastroparesis. Of note PD fluid was analyzed and was not found to have overt leukocytes. Vitals/I&O/Wt Last Vital Signs Temp 98.0 F 04/24/20 11:36 Pulse 61 04/24/20 11:36 Resp 18 04/24/20 11:36 BP 109/66 04/24/20 11:36 Pulse Ox 99 04/24/20 11:36 04/23/20 04/24/20 04/24/20 22:59 06:59 14:59 Intake Total 600 / 600 Output Total 0 / 0 Balance 0 / 0 600 / 600 Weight last 48 hrs Weight 96.162 kg Physical Exam Narrative: EXAM NARRATIVE: Constitutional: Awake, conversant HEENT: Wet mucosa, no jvp, non icteric Lungs: Bilaterally clear without discernible wheeze, some scant rales in the bases CVS: S1 S2, no murmurs Abdo: Soft, BS ok, healthy exit site Ext 4: Minimal edema, peripheral perfusion with no cyanosis Neurological: Grossly non-focal Data : 04/24/20 04:58 04/24/20 04:58 Micro: Microbiology 04/23/20 19:41 Blood Culture - Preliminary Blood SPECIMEN COLLECTED 04/23/20 19:41 Blood Culture - Preliminary Blood SPECIMEN COLLECTED A&P Additional A&P Information 1. ESRD on PD - CAPD- 5 exchanges a day alt 1.5% and 2.5% gluc, low ca, 2L fills 2. s/p recent LHC with stent placement, mgmt per cardiology team 3. Hemodynamics appear stable 4. Anemia of ESRD just below goal, monitor for now 5. Dizziness - suspicious for vertigo 6. N&V - s/p recent work-up, likely element of gastroparesis Attestations Medical Necessity Statement*: eval for ESRD on PD Coding Level of Care Code Acute Appeals Court Associate Justice for Chg Fwpar[place]
--- NOTE | 2020-04-24 13:33 | PC.CHAP ---
Pastoral Care Encounter/Spiritual Assessment Type of Contact [] Declined repairer cylinder heads visit [] Patient/Family/Request visit [] Outpatient visit [] Follow-up visit [] Physician referral [] Code/Alert [X] Routine visit [] Staff referral [] Actively dying [] Patient sleeping [] Family support [] [] Out of room [] Palliative care [] [] Receiving care in room [] Pre-surgical visit [] Trauma [] Long length of stay [] ICU visit [] Other: Relational/Emotional Strength [] Patient feels connected with others/family/visitors/staff [] Distress [] Loneliness/isolation [] Abandonment Spirituality of Patient [] Person of Talya [] Attends Sikhism of their [place] [] Believes in Prayer [] Reads Bible or Pentecostalism materials [] There are Spiritual issues to be addressed Automobile Locator Interventions [] Prayer [] Active listening [] Non-anxious presence [] Spiritual/emotional support [] Crisis/trauma care [] Spiritual counseling [] Bereavement support [] Provided bereavement packet [] Provided Bible/devotional materials [] Provided toy/stuffed animal, coloring book to patient or family member [] Provided Communion [] Anointing/[place] [] Salvation [] Completed spiritual assessment [] Other: Impact on Illness or Injury [] Angry [] Fearful [] Anxious [] Often cries [] Exhaustion [] Unable to work [] Unable to attend moravian [] Unable to walk/stand [] Unable to read [] Unable to drive [] Unable to eat/drink [] Unable to sleep [] Unable to be with family [] Patient intubated [] Other: Summary Time spent with patient
--- NOTE | 2020-04-24 15:35 | PC.NURSE ---
off unt Pt went for MRI.
[2020-04-24 17:06] LABS: Glucose Point of Care 143 mg/dL (70-110)
[2020-04-24] MEDS: Dianeal low Ca w/2.5% dex 2,000 mL Bag 2000 ML INTRAPERIT (17:33)
--- NOTE | 2020-04-24 20:20 | P.DS_ITS ---
Discharge Providers Date of Admission: 04/23/20 23:00 Date of Discharge: April 24, 2020 Attending Provider at Admission: Daksha Burdick MD Attending Provider at Discharge: Calvin Zamorano Primary Care Provider: Yovany Leonardo MD Diagnoses at Discharge Discharge Diagnosis (1) BPPV (benign paroxysmal positional vertigo): Status: Acute (2) Bradycardia: Status: Acute (3) Hypothyroidism: Status: Acute Qualifiers: Hypothyroidism type: acquired Qualified Code(s): E03.9 - Hypothyroidism, unspecified (4) Diabetes: Status: Acute Permanent problem details: Insulin-dependent (5) Chronic kidney disease, stage V: Status: Chronic (6) Gastroparesis: Status: Chronic (7) End stage renal disease: Status: Acute Reason for Visit Reason for Visit: DIZZNESS,NAUSEA,WEAKNESS Hospital Course Hospital Course Pleasant 55-year-old lady with CAD, recent coronary artery stent, end-stage kidney disease on peritoneal dialysis, chronic diastolic congestive heart failure, HTN, HLD, PVD, history of right BKA, history of TIA, DOROTEO, at night on AVAPS, diabetes, obesity, glaucoma and other medical problems was placed in observation due to symptoms of dizziness, nausea and vomiting, this had started on Wednesday, with reported room spinning around her with changes in position. She had not noticed any motor or sensory deficit. She has been feeling tired and lethargic, has been dehydrated. She reported having EGD with history of GERD/hiatal hernia and esophagitis for which she has been taking PPI daily. Peritoneal fluid was assessed and not suggestive of SBP. No symptoms were found of acute infection chest x-ray. She produces minmal urine. CT abdomen pelvis without acute abnormalities. Rapid COVID-19 test negative. She was noted to be bradycardic, with heart rates in the mid 50s on occasion. Her beta-chyna was held. On presentation she was found to have positive [place]-Hallpike maneuver. She was also noted to have reported pupil asymmetry. CT of the head without acute findings, slight chronic ischemic changes and atherosclerosis. Continued slight bilateral mastoid disease. She received meclizine for symptoms. Bradycardia improved with holding beta-chyna. Was noted to have history of gastroparesis. Received symptomatic treatment with Zofran. Trial of small meals was encouraged. A1c noted 8.9. Would benefit from continued optimization of DM control. With risk factors for CVA, with noted pupillary asymmetry on presentation additional assessment was performed with carotid Doppler study to assess for carotid dissection or other acute abnormality. She is noted to have 50-69% left ICA stenosis, less than 50% on the right. MRI brain was obtained to exclude CVA. Study was done noncontrast due to ESRD. No acute CVA noted on MRI. ICA stenosis she reports is chronic, and she states has had history of TIA in the past, and was followed up with vascular surgery with regards to the stenosis. Monitoring was recommended without recommendation for surgery at that time. We discussed with her extensively and she is agreeable to follow-up with her vascular surgeon in office. She understands to seek medical attention immediately in case there is any concerning symptoms for CVA. She does report also that she has glaucoma, with previous valve placement in the left eye. She uses eyedrops only in the left eye. She denies any eye pain. She has chronically severe vision loss on the left side, recently noted some blurriness of the vision on the right. She had an appointment with her production drilling machine operator today. We measured intraocular pressure, and found it to be 24 mmHg on the left, 18 on the right. She reports that 24 is baseline pressure in the left eye. Discussed the findings and her current eyedrops with our production drilling machine operator. At this time recommendation is to continue eyedrops and follow-up with an op hthalmologist in office. Her medications also should not be causing nystagmus or vertigo. Medication list also reviewed with pharmacy. Given otherwise unremarkable work-up at this time high consideration is given to BPPV as her underlying condition. However, with risk factors for CVA, and other underlying conditions, please maintain low threshold for additional assessment. Consider referral to neurology in case of lack of resolution of symptoms. She is referred to outpatient physical therapy for repositioning maneuvers. Meclizine and Zofran are given for symptoms. She is instructed on strict fall precautions. Her was here during discussion of the condition, differential diagnosis, assessment and plan. Her she states would be able to assist her at home in case of any needs. She underwent a course of uneventful peritoneal dialysis in the hospital. She was assessed by physical therapy and did not have any further vertigo at that time. She ate 100% of her dinner. She feels well enough to return home and follow-up in office. She knows to seek medical attention immediately in case of any concerning symptoms. Please note 1/4 bottles on blood culture found to contain gram positive coccus on gram stain noted in the afternoon. Normally this would likely be contamination, but please follow up final culture and reassess as necessary due to immune compromise with diabetes and renal failure. Physical Exam Const: COMMON NORMALS: no acute distress, patient oriented x3 and alert GENERAL APPEARANCE: cooperative and comfortable NUTRITIONAL APPEARANCE: obese ORIENTATION/CONSCIOUSNESS: Yes awake OTHER: at bedside. HENMT: COMMON NORMALS: oropharynx normal Neck/C-Spine: COMMON NORMALS: no meningeal signs and no JVD Resp: COMMON NORMALS: normal respiratory effort and clear to auscultation bilaterally AUSCULTATION: clear to auscultation bilaterally Cardio: COMMON NORMALS: no JVD, regular rhythm, S1 normal heart sound present, S2 normal heart sound present and No murmurs present (Cardio) RHYTHM: regular rhythm HEART SOUNDS: S1 normal heart sound present and S2 normal heart sound present GI: COMMON NORMALS: Normal to inspection, nondistended, normoactive bowel sounds present, Soft to palpation and non-tender PALPATION: Yes Soft to palpation Extremity: COMMON NORMALS: no joint enlargement and no pedal edema OTHER: R BKA Neuro: COMMON NORMALS: patient oriented x3, moves all extremities, no focal motor deficits and no sensory deficits noted SENSORIUM/ORIENTATION: Yes alert MENINGEAL SIGNS: Yes no meningeal signs OTHER: Pupils appear equal in size. Skin: COMMON NORMALS: no rashes or lesions noted GENERAL SKIN EXAM: no rashes or lesions noted Discharge Data Data Completed and Pending: Completed Studies During Hospitalization Category Date Time Status CT abdomen pelvis w con* [id number] Stat Cat Scan 04/23/20 23:[address] head wo con* [id number] Stat Cat Scan 04/24/20 01:30 Completed XR chest 1V sandra ble [id number] Stat Exams 04/23/20 17:46 Completed MR head wo con* [id number] Routine MRI 04/24/20 07:57 Completed CV carotid duplex BI* [id number] Routine Ultrasound 04/24/20 07:57 Completed Pending at discharge Category Date Time Status Blood Culture Sta t Lab 04/23/20 19:41 Results Body Fluid Cultur e Stat Lab 04/23/20 20:48 Received Labs from last 24 hours 04/24/20 04/24/20 04/24/20 16:51 11:29 06:07 WBC RBC Hgb Hct MCV MCH MCHC RDW Plt Count MPV Neut % (Auto) Lymph % (Auto) [place] % (Auto) Eos % (Auto) Baso % (Auto) Neut # (Auto) Lymph # (Auto) [place] # (Auto) Eos # (Auto) Baso # (Auto) Nucleated RBC % (a uto) Nucleated RBCs # Sodium Potassium Chloride Carbon Dioxide Anion Gap BUN Creatinine GFR Calculation Glucose POC Glucose 143 168 117 Calculated Osmolal ity Calcium Phosphorus Magnesium Troponin T 120 Min [place] Delta Troponin T Troponin T Hi Sens 6Hr Troponin T Hi Sens 6Hr Delta Peritoneal Color Peritoneal Appeara nce Peritoneal WBC Peritoneal RBC Periton Mononu # A uto Mononuclear WBCs % Polynuclear WBCs % Perit Polynuc WBCs # Peritoneal Diff Co mmnt SARS-CoV-2 Ag (Rap id) 04/24/20 04/24/20 04/23/20 04:58 04:58 23:10 WBC 7.5 RBC 2.97 L Hgb 9.6 L Hct 28.8 L MCV 97.0 MCH 32.3 MCHC 33.3 RDW 13.0 Plt Count 230 MPV 11.6 H Neut % (Auto) 78.0 Lymph % (Auto) 12.5 [place] % (Auto) 6.1 Eos % (Auto) 2.5 Baso % (Auto) 0.5 Neut # (Auto) 5.84 Lymph # (Auto) 0.9 [place] # (Auto) 0.5 Eos # (Auto) 0.2 Baso # (Auto) 0.0 Nucleated RBC % (a uto) 0 Nucleated RBCs # 0.0 Sodium 132 L Potassium 3.7 Chloride 92 L Carbon Dioxide 25 Anion Gap 18.7 BUN 36 H Creatinine 9.6 H* GFR Calculation 4.2 L Glucose 111 POC Glucose Calculated Osmolal ity 283 L Calcium 9.3 Phosphorus Magnesium Troponin T 120 Min [place] Delta Troponin T Troponin T Hi Sens 6Hr Troponin T Hi Sens 6Hr Delta Peritoneal Color Peritoneal Appeara nce Peritoneal WBC Peritoneal RBC Periton Mononu # A uto Mononuclear WBCs % Polynuclear WBCs % Perit Polynuc WBCs # Peritoneal Diff Co mmnt SARS-CoV-2 Ag (Rap id) Negative 04/23/20 04/23/2004/23/20 20:40 19:41 19:41 WBC RBC Hgb Hct MCV MCH MCHC RDW Plt Count MPV Neut % (Auto) Lymph % (Auto) [place] % (Auto) Eos % (Auto) Baso % (Auto) Neut # (Auto) Lymph # (Auto) [place] # (Auto) Eos # (Auto) Baso # (Auto) Nucleated RBC % (a uto) Nucleated RBCs # Sodium Potassium Chloride Carbon Dioxide Anion Gap BUN Creatinine GFR Calculation Glucose POC Glucose Calculated Osmolal ity Calcium Phosphorus 5.8 H Magnesium 1.8 Troponin T 120 Min [place] 41.03 H Delta Troponin T 0.03 Troponin T Hi Sens 6Hr Troponin T Hi Sens 6Hr Delta Peritoneal Color Colorless Peritoneal Appeara nce Clear Peritoneal WBC 15 Peritoneal RBC 0 Periton Mononu # A uto 0.010 Mononuclear WBCs % 66.700 Polynuclear WBCs % 33.300 Perit Polynuc WBCs # 0.005 Peritoneal Diff Co mmnt Yes SARS-CoV-2 Ag (Rap id) 04/23/20 00:25 WBC RBC Hgb Hct MCV MCH MCHC RDW Plt Count MPV Neut % (Auto) Lymph % (Auto) [place] % (Auto) Eos % (Auto) Baso % (Auto) Neut # (Auto) Lymph # (Auto) [place] # (Auto) Eos # (Auto) Baso # (Auto) Nucleated RBC % (a uto) Nucleated RBCs # Sodium Potassium Chloride Carbon Dioxide Anion Gap BUN Creatinine GFR Calculation Glucose POC Glucose Calculated Osmolal ity Calcium Phosphorus Magnesium Troponin T 120 Min [place] Delta Troponin T Troponin T Hi Sens 6Hr 46.95 H Troponin T Hi Sens 6Hr Delta Not Reportable Peritoneal Color Peritoneal Appeara nce Peritoneal WBC Peritoneal RBC Periton Mononu # A uto Mononuclear WBCs % Polynuclear WBCs % Perit Polynuc WBCs # Peritoneal Diff Co mmnt SARS-CoV-2 Ag (Rap id) Vitals: Last Vital Signs Temp 97.7 F 04/24/20 19:35 Pulse 64 04/24/20 19:35 Resp 14 04/24/20 19:35 BP 105/66 04/24/20 19:35 Pulse Ox 95 04/24/20 19:35 Discharge Plan Discharge Patient Disposition: Home Condition: Stable Prescriptions: New meclizine 25 mg Tablet 25 mg PO TID Qty: 42 RF: 0 Zofran 4 mg tablet 4 mg PO Q8H PRN (Reason: nausea and vomiting) 5 Days Qty: 14 RF: 0 Continued nitroglycerin 0.4 mg tablet, sublingual 0.4 mg SUBLINGUAL Q5M PRN (Reason: Chest Pain) Qty: 25 RF: 6 levothyroxine 112 mcg tablet 224 mcg PO DAILY Qty: 30 RF: 3 atorvastatin 40 mg tablet 40 mg PO DAILY Qty: 30 RF: 5 (DME) [employer] sock See Rx Instructions .Route .MEDSUPPLY Qty: 1 RF: 0 aspirin 81 mg Tablet,Chewable 81 mg PO DAILY RF: 0 Auryxia 210 mg iron tablet See Rx Instructions .ROUTE .COMPLEX RF: 0 pantoprazole 40 mg tablet,delayed release (DR/EC) 40 mg PO DAILY RF: 0 Rocklatan 0.02-0.005 % Drops 1 drp OPHTHALMIC (EYE) BEDTIME RF: 0 sennosides-docusate sodium 8.6-50 mg tablet 1 tab PO DAILY RF: 0 Lantus Solostar U-100 Insulin 100 unit/mL (3 mL) insulin pen 50 unit SUBCUT BID RF: 0 multivitamin [Multiple Vitamins] Tablet 1 tab PO DAILY RF: 0 paricalcitol [Zemplar] 1 mcg capsule See Rx Instructions .ROUTE .COMPLEX RF: 0 coenzyme Q10 [CoQ-10] 100 mg Capsule 100 mg PO DAILY RF: 0 cholecalciferol (vitamin D3) [Vitamin D3] 25 mcg (1,000 unit) Tablet,Chewable 25 mcg PO DAILY RF: 0 omega 6-[id number]-fish oil [Fish Oil] 300-1,000 mg Capsule,Delayed Release(Dr/Ec) 1 cap PO DAILY RF: 0 brimonidine 0.2 % drops See Rx Instructions .ROUTE .COMPLEX RF: 0 dorzolamide-timolol 22.3-6.8 mg/mL drops See Rx Instructions .ROUTE .COMPLEX RF: 0 clopidogrel 75 mg Tablet 75 mg PO DAILY Qty: 30 RF: 0 Discontinued metoprolol tartrate 25 mg tablet 12.5 mg PO BID RF: 0 Discharge Orders: Discharge Order (Routine); Ordered 04/24/20 Ordered By: Calvin Zamorano Other Ambulatory Orders: DME: Miscellaneous (Order) Location: None Selected Ordered By: Calvin Zamorano Physical Therapy Eval and Treat Outpatient (Order) Timeframe: 1 Day Facility: [facility] - Location: Physical Therapy Ordered By: Calvin Zamorano Referrals: Yovany Leonardo MD [Primary Care Provider] - 04/25/20 2:30 pm Nabila Hall FNP [Nurse Practitioner] - 04/26/20 11:00 am Soraya Ignacio MD [Physician] - 06/03/20 10:15 am (6 week [facility] hospital follow up) Discharge Diet: Usual diet and Cardiac Discharge Activity: Increase activity as tolerated Patient Instructions: Benign Positional Vertigo, Meclizine (By mouth), Ondansetron (By mouth) Activity Restrictions/Additional Instructions: Please transfer cautiously as you are at high risk of falls in case you experience vertigo/dizziness. Please maintain fall precautions at all times. Your metoprolol for now is discontinued due to slow heart rates in the hospital (in the 50s), and in case slow heart rates are contributing to you feeling unwell. Please measure your heart rates at home and follow-up with your primary care doctor as well as assistant inventory manager to discuss when it may be safe to resume metoprolol. Please follow-up with your production drilling machine operator, call them tomorrow to make an appointment. You are referred to outpatient physical therapy for repositioning maneuvers to help with the vertigo. If vertigo episodes continue to come back, please discuss with your primary care doctor consideration for referral to neurology. If vertigo becomes constant at any point, without resolution, please go to ER as soon as possible. 1 out of 4 blood cultures is noted having gram-positive organism in it, final cultures will need to be followed up. Given it is only 1 out of 4 bottles currently suspicion is high that this is most likely just a skin contaminant. However, please have your primary doctor follow-up on the final results to make sure that this is only a contaminant from the skin. If you experience any symptoms of numbness or weakness in any extremity, any difficulty speaking, any worsening of vision, any high fevers, or other unusual symptoms, please seek medical attention without delay. Discharge Attestations Time Spent in Discharge Care*: greater than 30 min Status at Discharge: Cognitive status at discharge: cognitively intact , Behavioral status at discharge: cooperative , Quality Metrics Clinical Quality Measures During this hospital stay, did patient experience: None Coding Level of Care Code Acute Computer Systems Manager for Chg Fwd Diagnoses BPPV (benign paroxysmal positional vertigo) H81.10 Bradycardia R00.1 Hypothyroidism E03.9 Hypothyroidism type: acquired Diabetes E11.9 Chronic kidney disease, stage V N18.5 Gastroparesis K31.84 End stage renal disease N18.6
== END 2020-04-24 19:37 | disposition home or self-care (01) ==
LOC: ER 17:55 → MEDSURG 04-24 00:37
PROVIDERS: Family Medicine; Admitting Provider Internal Medicine; Emergency Provider Emergency Medicine; PCP Internal Medicine; Visit Provider Internal Medicine
DX: H81.10 Benign paroxysmal vertigo, unspecified ear (principal); R00.1 Bradycardia, unspecified; E03.9 Hypothyroidism, unspecified; K31.84 Gastroparesis; N18.6 End stage renal disease; Z79.82 Long term (current) use of aspirin; Z79.4 Long term (current) use of insulin; I13.2 Hypertensive heart and chronic kidney disease with heart failure and with stage 5 chronic kidney disease, or end stage renal disease; E11.22 Type 2 diabetes mellitus with diabetic chronic kidney disease; I50.32 Chronic diastolic (congestive) heart failure; F32.9 Major depressive disorder, single episode, unspecified; E78.5 Hyperlipidemia, unspecified; Z86.73 Personal history of transient ischemic attack (TIA), and cerebral infarction without residual deficits; Z84.89 Family history of other specified conditions
CPT/HCPCS: 12345; 36415; 36416; 70450; 70551; 71045; 74177; 80048; 80053; 80500; 82962; 83735; 84100; 84484; 85025; 85610; 87040; 87070; 87075; 87205; 87426; 89050; 90935; 93005; 93880; 94660; 96365; 96372; 96375; 96376; 97161; 99283; 99285; G0378; J0694; J1644; J1815; J2405; J8597; Q9967

== ENCOUNTER → 2020-04-26 12:45 | Outpatient (BNVA) | payer MEDICARE, MEDICAID, SELFPAY | PROVIDERS: PCP Internal Medicine; Visit Provider Nurse Practitioner Family | DX: I50.32 Chronic diastolic (congestive) heart failure (principal); I25.10 Atherosclerotic heart disease of native coronary artery without angina pectoris | CPT/HCPCS: 80048 ==

== ENCOUNTER 2020-04-29 17:27 | Inpatient (IN) | payer MEDICARE, MEDICAID, SELFPAY ==
[2020-04-29 17:35] VITALS: BP 123/67; PULSE 58; RESP 16; TEMP 36.8; O2SAT 98; BMI 35.7
--- NOTE | 2020-04-29 17:39 | ED_ITS ---
HPI - Psych General: Chief Complaint: Psychiatric Symptoms Stated Complaint: SI/recent SA Time Seen by Provider: 04/29/20 17:30 Source: patient and EMS Mode of arrival: EMS Limitations: no limitations History of Present Illness: HPI Narrative: 55-year-old female states she has been having suicidal thoughts over the last 2 to 3 days. She states she attempted to kill herself last night by taking a handful of Tylenol and 2 or 3 metoprolol pills. She states happened at midnight. Patient called her clinic and was placed under 96-hour hold and they called EMS who brought her here. She states that she just does not feel like living anymore. She denies any other ingestions. Denies worsening or improving factors. Associated symptoms: Reports depression and suicidal ideation Review of Systems Const: Denies: fever(s), chills, body aches or change in appetite Eyes: Denies: blurry vision or eye discomfort ENMT: Denies: throat pain or dental pain Card: Denies: chest pain Resp: Denies: dyspnea GI: Denies: abdominal pain, nausea, vomiting or diarrhea : Denies: dysuria Musc: Denies: neck pain or back pain Skin/Breast: Denies: rash Neuro: Denies: headache(s) Psych: Reports: depression and suicidal ideation [place]/Lymph: Denies: easy bruising All/Imm: Denies: urticaria PFSH ED PFSH: Medical History Anxiety CAD (coronary artery disease) Chronic diastolic CHF (congestive heart failure) Compensated currently Chronic kidney disease, stage V Claustrophobia Depression Diabetes Insulin-dependent End stage renal disease ESRD (end stage renal disease) Gastroparesis GERD (gastroesophageal reflux disease) HTN (hypertension) Hyperlipidemia Hypothyroidism Partial nontraumatic amputation of left foot (~06/2019) Peripheral vascular disease TIA (transient ischemic attack) Vitamin D deficiency Surgical History History of appendectomy History of heart artery stent History of hysterectomy History of left heart catheterization History of right below knee amputation Peritoneal dialysis catheter in place S/P cholecystectomy S/P PICC central line placement Status post amputation of toe Family History Denies family history of CAD (coronary artery disease) Clotting disorder Dementia Bleeding disorder Social History Smoking and tobacco status: never smoked Alcohol intake: never Substance/Drug Use: never Household members: spouse and family History of recent travel: No Physical Exam Const: COMMON NORMALS: no acute distress, patient oriented x3 and healthy appearing HENMT: COMMON NORMALS: normocephalic and atraumatic HEAD & SCALP: norm ocephalic and atraumatic Eye: COMMON NORMALS: Equal, round and reactive pupils present and EOMs intact bilaterally PUPIL: Yes Equal, round and reactive pupils present Neck/C-Spine: COMMON NORMALS: full ROM and supple Chest: COMMONS NORMALS: normal inspection of the chest and normal palpation of entire chest wall Resp: COMMON NORMALS: normal respiratory effort, No retractions, No use of accessory muscles and clear to auscultation bilaterally AUSCULTATION: clear to auscultation bilaterally Cardio: COMMON NORMALS: regular rate, regular rhythm and No murmurs present (Cardio) RATE: regular rate RHYTHM: regular rhythm GI: COMMON NORMALS: Normal to inspection, nondistended, normoactive bowel sounds present, Soft to palpation, non-tender and no masses PALPATION: Yes Soft to palpation Extremity: COMMON NORMALS: normal to inspection and full ROM Neuro: COMMON NORMALS: patient oriented x3, moves all extremities and no focal motor deficits Psych: COMMON NORMALS: mental status grossly normal, Normal thought process present and cooperative MOOD & AFFECT: Yes depressed mood THOUGHT PROCESS: Normal thought process present THOUGHT CONTENT: Yes Suicidality present Skin: COMMON NORMALS: no rashes or lesions noted and no wounds GENERAL SKIN EXAM: no rashes or lesions noted MDM - Psych MDM Narrative: Medical decision making narrative: Patient presents here with suicidal ideation. Patient is medically cleared. Spoke to psychiatrist and will admit to the psych unit. Also consulted hospitalist and nephrology due to patient's chronic medical problems and her end-stage renal disease. Patient is well-appearing here and clear for admission to the psych unit. Lab Data: Labs: Lab Results 04/29/20 04/29/20 04/29/20 Range/Units 18:30 18:30 18:30 WBC 7.7 (4.0-10.0) 10^3/ uL RBC 3.11 L (4.1-5.3) 10^6/u L Hgb 10.0 L (11.5-15.3) g/dL Hct 30.5 L (37.0-47.0) % MCV 98.1 (81-99) fL MCH 32.2 (28.0-34.0) pg MCHC 32.8 (30.0-36.0) g/dL RDW 13.6 (12.1-15.1) % Plt Count 272 (130-400) 10^3/c mm MPV 11.0 H (7.4-10.4) fL Neut % (Auto) 62.2 % Lymph % (Auto) 21.5 % [place] % (Auto) 9.1 % Eos % (Auto) 5.1 % Baso % (Auto) 0.9 % Neut # (Auto) 4.81 (1.8-7.7) 10^3/u L Lymph # (Auto) 1.7 (0.8-4.8) 10^3/u L [place] # (Auto) 0.7 (0.2-0.9) 10^3/u L Eos # (Auto) 0.4 (0.0-0.8) 10^3/u L Baso # (Auto) 0.1 (0.0-0.1) 10^3/u L Nucleated RBC % (a uto) 0 % Nucleated RBCs # 0.0 /100WBC Sodium 137 (136-145) mmol/L Potassium 3.7 (3.5-5.1) mmol/L Chloride 94 L (98-107) mmol/L Carbon Dioxide 25 (22-29) mmol/L Anion Gap 21.7 H (5-19) BUN 33 H (6-20) mg/dL Creatinine 7.8 H* (0.5-0.9) mg/dL GFR Calculation 5.4 L (90-130) mL/min Glucose 63 L (65-115) mg/dL Calculated Osmolal ity 289 (285-295) mOsm/k g Lactic Acid 1.5 (0.5-2.2) mmol/L Calcium 9.5 (8.5-10.5) mg/dL Total Bilirubin 0.2 (0.15-1.2) mg/dL AST 17 (0-32) U/L ALT 19 (0-33) U/L Alkaline Phosphata se 98 (35-105) IU/L Total Protein 6.4 L (6.6-8.7) g/dL Albumin 2.9 L (3.5-5.2) g/dL Globulin 3.5 (1.3-4.6) g/dL Salicylates < 0.3 L (3-10) mg/dL Acetaminophen < 5.0 L (10-30) ug/mL Ethyl Alcohol < 10 (0-10) mg/dL Discharge Plan Discharge Patient Disposition: Admitted As Inpatient Admit Provider: Gallito Ghotra Clinical Impression: Suicidal ideation, ESRD (end stage renal disease) Condition: Stable Coding Level of Care Code ED Field Education Coordinator for [place] Fwd Exam Comprehensive
[2020-04-29 18:49] LABS: Basophils # 0.1 10^3/uL (0.0-0.1); Basophils % 0.9 %; Eosinophils # 0.4 10^3/uL (0.0-0.8); Eosinophils % 5.1 %; Hematocrit 30.5 % (37.0-47.0); Lymphocytes # 1.7 10^3/uL (0.8-4.8); Lymphocytes % 21.5 %; Mean Corpuscular HGB Conc 32.8 g/dL (30.0-36.0); Mean Corpuscular Hemoglobin 32.2 pg (28.0-34.0); Mean Corpuscular Volume 98.1 fL (81-99); Monocytes # 0.7 10^3/uL (0.2-0.9); Monocytes % 9.1 %; Neutrophils # 4.81 10^3/uL (1.8-7.7); Neutrophils % 62.2 %; Nucleated Red Blood Cells % 0 %; Platelet Count 272 10^3/cmm (130-400); Red Blood Count 3.11 10^6/uL (4.1-5.3); Red Cell Distribution Width 13.6 % (12.1-15.1); White Blood Count 7.7 10^3/uL (4.0-10.0)
[2020-04-29 19:10] LABS: Lactic Sepsis W/Reflex 1.5 mmol/L (0.5-2.2)
[2020-04-29 19:12] LABS: Alanine Aminotransferase 19 U/L (0-33); Albumin Level 2.9 g/dL (3.5-5.2); Alkaline Phosphatase 98 IU/L (35-105); Anion Gap 21.7 (5-19); Aspartate Amino Transferase 17 U/L (0-32); Blood Urea Nitrogen 33 mg/dL (6-20); Calcium 9.5 mg/dL (8.5-10.5); Carbon Dioxide 25 mmol/L (22-29); Chloride 94 mmol/L (98-107); Globulin 3.5 g/dL (1.3-4.6); Glomerular Filtration Rate 5.4 mL/min (90-130); Glucose 63 mg/dL (65-115); Osmolality Calculated 289 mOsm/kg (285-295); Potassium 3.7 mmol/L (3.5-5.1); Sodium 137 mmol/L (136-145); Total Bilirubin 0.2 mg/dL (0.15-1.2); Total Protein 6.4 g/dL (6.6-8.7)
[2020-04-29 19:16] LABS: Acetaminophen < 5.0 ug/mL (10-30); Alcohol Level < 10 mg/dL (0-10); Salicylate < 0.3 mg/dL (3-10)
--- NOTE | 2020-04-29 19:43 | PC.NURSE ---
pt blood glucose low. pt is alert and oriented. pt provided with orange juice and peanut butter and crackers. Burt CASTILLO notified.
--- NOTE | 2020-04-29 20:48 | PM.CONSULT ---
Providers/Reason For Consult Consulting Physican/Specialty*: Ashleigh Scruggs DO, telenephrology Reason for Consult*: ESRD Primary Care Provider: Yovany Leonardo MD History of Present Illness History of Present Illness Rizwana Herzog is a 55 year old female presented to ER for evaluation of suicidal ideation. Took a handful of tylenol yesterday. Uses cycler for PD at home, overnight 4 exchanges of 2.5%, dwells with extraneal in daytime. States she has not missed treatment. Meds/Allergies Home Medications and Allergies Home Medications Medication Instructions Recorded Confirmed Last Taken Type aspirin 81 mg PO DAILY 06/25/19 04/29/20 04/28/20 History multivitamin [Multiple Vitamins] 1 tab PO DAILY 06/30/19 04/29/20 04/28/20 History paricalcitol [Zemplar] See Rx Instructions .ROUTE .COMPLEX 06/30/19 04/29/20 04/28/20 History ferric citrate 210 mg iron tablet See Rx Instructions .ROUTE 09/06/19 04/29/20 04/28/20 History .COMPLEX tab levothyroxine 112 mcg tablet 224 mcg PO DAILY #30 tab 12/11/19 04/29/20 04/28/20 Rx cholecalciferol (vitamin D3) 25 mcg PO DAILY 01/17/20 04/29/20 04/28/20 History [Vitamin D3] coenzyme Q10 [CoQ-10] 100 mg PO DAILY 01/17/20 04/29/20 04/28/20 History omega 7-wvc-esu-fish oil [Fish Oil] 1 cap PO DAILY 01/17/20 04/29/20 04/28/20 History brimonidine See Rx Instructions .ROUTE .COMPLEX 01/31/20 04/29/20 04/28/20 History dorzolamide-timolol See Rx Instructions .ROUTE .COMPLEX 01/31/20 04/29/20 04/28/20 History pantoprazole 40 mg PO DAILY 02/16/20 04/29/20 04/28/20 History nitroglycerin 0.4 mg sublingual 0.4 mg SUBLINGUAL Q5M PRN #25 tab 03/26/20 04/29/20 04/18/20 Rx tablet atorvastatin 40 mg tablet 40 mg PO DAILY #30 tab 03/27/20 04/29/20 04/28/20 Rx clopidogrel 75 mg PO DAILY #30 tab 04/02/20 04/29/20 04/28/20 Rx Lantus Solostar U-100 Insulin 50 unit SUBCUT BID 04/18/20 04/29/20 04/29/20 History Rocklatan 1 drp OPHTHALMIC (EYE) BEDTIME 04/18/20 04/29/20 04/28/20 History sennosides-docusate sodium 1 tab PO DAILY 04/18/20 04/29/20 04/28/20 History meclizine 25 mg PO TID #42 tab 04/24/20 04/29/20 04/28/20 Rx general superintendent sock #1 ea 04/24/20 04/29/20 Unknown Rx sevelamer carbonate 800 mg PO TID 04/29/20 04/29/20 Unknown History Allergies Allergy/AdvReac Type Severity Reaction Status Date / Time metformin [From Glucophage] Allergy Severe Unknown Verified 04/26/20 12:11 venlafaxine [From Effexor] Allergy Severe ADR-Shakine Verified 04/26/20 12:11 ss PFSH Acute PFSH: Medical History Anxiety CAD (coronary artery disease) Chronic diastolic CHF (congestive heart failure) Compensated currently Chronic kidney disease, stage V Claustrophobia Depression Diabetes Insulin-dependent End stage renal disease ESRD (end stage renal disease) Gastroparesis GERD (gastroesophageal reflux disease) HTN (hypertension) Hyperlipidemia Hypothyroidism Partial nontraumatic amputation of left foot (~06/2019) Peripheral vascular disease TIA (transient ischemic attack) Vitamin D deficiency Surgical History History of appendectomy History of heart artery stent History of hysterectomy History of left heart catheterization History of right below knee amputation Peritoneal dialysis catheter in place S/P cholecystectomy S/P PICC central line placement Status post amputation of toe Family History Denies family history of CAD (coronary artery disease) Clotting disorder Dementia Bleeding disorder Social History Smoking and tobacco status: never smoked Alcohol intake: never Substance/Drug Use: never Household members: spouse and family History of recent travel: No Vitals/I&O/Wt Last Vital Signs Temp 98.2 F 04/29/20 17:35 Pulse 58 L 04/29/20 17:35 Resp 16 04/29/20 17:35 BP 123/67 04/29/20 17:35 Pulse Ox 98 04/29/20 17:35 Weight last 48 hrs Weight 97.522 kg Physical Exam Const: COMMON NORMALS: no acute distress GENERAL APPEARANCE: cooperative NUTRITIONAL APPEARANCE: obese Data Labs: Other Labs: acetaminophen not detected A&P Additional A&P Information 1. ESRD on peritoneal dialysis 2. Anemia 3. Diabetes 4. Depression Will order CAPD 2.5%, 5x 2 liter exchanges daily. Gentamicin ointment to PD exit site. Consult Attestations Medical Necessity Statement: per primary service Time Spent in Patient Care: 16 - 35 minutes Coding Level of Care Code Acute Fuse Maker for Maris Braden
--- NOTE | 2020-04-29 21:09 | PC.NURSE ---
pt report called to Roni GORDON in SBAR format.
[2020-04-29 22:08] VITALS: BP 130/74; PULSE 67; RESP 18; O2SAT 98
[2020-04-29 22:20] VITALS: BP 118/71; PULSE 91; RESP 17; TEMP 37.1; O2SAT 99
[2020-04-29] MEDS: ondansetron 4 MG Tablet PO (22:38)
[2020-04-29] MEDS: Dianeal low Ca w/2.5% dex 2,000 mL Bag 2000 ML INTRAPERIT (22:39)
--- NOTE | 2020-04-29 23:12 | PM.CONSULT ---
Providers/Reason For Consult Consulting Physican/Specialty*: Felicia Singh MD/Hospitalist Reason for Consult*: management of medical comorbidities Attending Physician: Gallito Ghotra MD Primary Care Provider: Yovany Leonardo MD History of Present Illness History of Present Illness Rizwana Herzog is a 55 year old female with past medical history of end-stage renal disease on peritoneal dialysis, hypertension, insulin-dependent diabetes mellitus type 2 status post right below-knee amputation and known history of coronary artery disease status post PCI to LAD most recently on 04/18/2020, anemia of chronic disease, hypothyroidism, depression/anxiety, gastroesophageal reflux disease, peripheral vascular disease status post left foot toe amputation, diastolic congestive heart failure and hyperlipidemia. Most recently she was evaluated on 04/24 under hospitalist service when she had presented with weakness, nausea and fatigue. She was noted to have unequal pupil size and positive Troy-Hallpike maneuver. She underwent extensive testing with CT of the abdomen pelvis, MRI to rule out CVA and testing of her intraocular pressure due to her history of glaucoma which was at her baseline. She was thought to have features of BPPV and was discharged home with meclizine and Zofran. For details please see discharge summary from 04/24/2020. She returned to the ER today c/o suicidal ideation and h/o having consumed multiple tablets of tylenol. In the ER diagnostics notable for normal LFTs, acetaminopehm level <5, salicylate level <3 and undetectable alcohol level. No specific complaints at this present time. She is being admitted to the NPU for management of depression and SI. Hospitalist service consulted for comanagement of medical comorbidities. Review of Systems General: Reports: 10 or more systems reviewed and unremarkable except in HPI and below Const: Denies: fever(s), chills or body aches Eyes: Denies: change in vision, blurry vision or photophobia ENMT: Reports: hoarseness; Denies: throat pain, enlarged tonsils, odynophagia or nasal congestion Card: Denies: chest pain, palpitations, irregular heart rhythm, edema, swelling of feet/ankles, lightheadedness, pre-syncope, dyspnea on exertion or orthopnea Resp: Denies: dyspnea, productive cough, non-productive cough, wheezing, stridor, pain on inspiration, change in phlegm color, hemoptysis or chest congestion GI: Denies: abdominal pain, nausea, vomiting, hematemesis, coffee ground emesis, dysphagia, heartburn, diarrhea, constipation, GI cramping, change in stool character, hematochezia or melena : Denies: flank pain, difficulty voiding, dysuria, urinary frequency, urinary urgency, urinary hesitancy or hematuria Musc: Denies: neck pain, back pain, extremity pain, joint swelling, joint warmth or deformity Neuro: Denies: headache(s), numbness in extremities, weakness in extremities, sensory changes, difficulty walking, frequent falls, dizziness, vertigo, behavioral changes, Slurred speech present or seizure-like activity Psych: Denies: anxiety, depression, suicidal ideation or homicidal ideation Endo: Denies: polyuria, polydipsia, tired all the time, cold intolerance or hot flashes Refugio/Lymph: Denies: easy bruising or easy bleeding Meds/Allergies Home Medications and Allergies Home Medications Medication Instructions Recorded Confirmed Last Taken Type aspirin 81 mg PO DAILY 06/25/19 04/29/20 04/28/20 History multivitamin [Multiple Vitamins] 1 tab PO DAILY 06/30/19 04/29/20 04/28/20 History paricalcitol [Zemplar] See Rx Instructions .ROUTE .COMPLEX 06/30/19 04/29/20 04/28/20 History ferric citrate 210 mg iron tablet See Rx Instructions .ROUTE 09/06/19 04/29/20 04/28/20 History .COMPLEX tab levothyroxine 112 mcg tablet 224 mcg PO DAILY #30 tab 12/11/19 04/29/20 04/28/20 Rx cholecalciferol (vitamin D3) 25 mcg PO DAILY 01/17/20 04/29/20 04/28/20 History [Vitamin D3] coenzyme Q10 [CoQ-10] 100 mg PO DAILY 01/17/20 04/29/20 04/28/20 History omega 0-toh-xsw-fish oil [Fish Oil] 1 cap PO DAILY 01/17/20 04/29/20 04/28/20 History brimonidine See Rx Instructions .ROUTE .COMPLEX 01/31/20 04/29/20 04/28/20 History dorzolamide-timolol See Rx Instructions .ROUTE .COMPLEX 01/31/20 04/29/20 04/28/20 History pantoprazole 40 mg PO DAILY 02/16/20 04/29/20 04/28/20 History nitroglycerin 0.4 mg sublingual 0.4 mg SUBLINGUAL Q5M PRN #25 tab 03/26/20 04/29/20 04/18/20 Rx tablet atorvastatin 40 mg tablet 40 mg PO DAILY #30 tab 03/27/20 04/29/20 04/28/20 Rx clopidogrel 75 mg PO DAILY #30 tab 04/02/20 04/29/20 04/28/20 Rx Lantus Solostar U-100 Insulin 50 unit SUBCUT BID 04/18/20 04/29/20 04/29/20 History Rocklatan 1 drp OPHTHALMIC (EYE) BEDTIME 04/18/20 04/29/20 04/28/20 History sennosides-docusate sodium 1 tab PO DAILY 04/18/20 04/29/20 04/28/20 History meclizine 25 mg PO TID #42 tab 04/24/20 04/29/20 04/28/20 Rx fitness and wellness manager sock #1 ea 04/24/20 04/29/20 Unknown Rx sevelamer carbonate 800 mg PO TID 04/29/20 04/29/20 Unknown History Allergies Allergy/AdvReac Type Severity Reaction Status Date / Time metformin [From Glucophage] Allergy Severe Unknown Verified 04/26/20 12:11 venlafaxine [From Effexor] Allergy Severe ADR-Shakine Verified 04/26/20 12:11 ss Current Medications Current Medications Generic Name Dose Route Start Last Admin Trade Name Freq PRN Reason Stop Dose Admin Ondansetron HCl 4 mg 04/29/20 22:20 04/29/20 22:38 Ondansetron 4 Mg Tablet PO 4 mg Q6H PRN Administration NAUSEA AND VOMITING Peritoneal Dialysis Solution 2,000 ml 04/29/20 22:00 04/29/20 22:39 Dianeal Low Ca W/2.5% Dex 2,000 Ml Bag INTRAPERIT 2,000 ml 5XD EJRSON Administration PFSH Acute PFSH: Medical History Anxiety CAD (coronary artery disease) Chronic diastolic CHF (congestive heart failure) Compensated currently Chronic kidney disease, stage V Claustrophobia Depression Diabetes Insulin-dependent End stage renal disease ESRD (end stage renal disease) Gastroparesis GERD (gastroesophageal reflux disease) HTN (hypertension) Hyperlipidemia Hypothyroidism Partial nontraumatic amputation of left foot (~06/2019) Peripheral vascular disease TIA (transient ischemic attack) Vitamin D deficiency Surgical History History of appendectomy History of heart artery stent History of hysterectomy History of left heart catheterization History of right below knee amputation Peritoneal dialysis catheter in place S/P cholecystectomy S/P PICC central line placement Status post amputation of toe Family History Denies family history of CAD (coronary artery disease) Clotting disorder Dementia Bleeding disorder Social History Smoking and tobacco status: never smoked Alcohol intake: never Substance/Drug Use: never Household members: spouse and family History of recent travel: No Vitals/I&O/Wt Last Vital Signs Temp 98.7 F 04/29/20 22:20 Pulse 91 04/29/20 22:20 Resp 17 04/29/20 22:20 BP 118/71 04/29/20 22:20 Pulse Ox 99 04/29/20 22:20 Weight last 48 hrs Weight 97.522 kg Physical Exam Narrative: EXAM NARRATIVE: GEN: Awake, alert and oriented, no acute distress CVS: S1S2 N RS: CTA B/L Abd: Soft, nt/nd , bs+ LAY OUT FORMER: no focal neuro deficits A&P Assessment and plan (1) Suicidal ideation: Patient admitted for NPU for management of above Status: Acute (2) BPPV (benign paroxysmal positional vertigo): Continue meclizine 25mg TID Status: Acute (3) Carotid stenosis: currently asymptomatic, evaluated on recent admission. Outpatient f/up with Dr. George Status: Acute Qualifiers: Laterality: bilateral Qualified Code(s): I65.23 - Occlusion and stenosis of bilateral carotid arteries (4) DOROTEO on CPAP: Status: Acute (5) ESRD (end stage renal disease): Nephrology consult for continutaion of PD No current electrolyte abnormalities Status: Acute (6) CAD (coronary artery disease): Recent PCI to LAD In Apr 2020 Continue ASA, Plavix, Atorvastatin Beta blockers discontinued on last admission due to bradycardia. Continue to monitor off B blockers for now Echo from 01/2020 Normal left ventricular cavity size and systolic function. Left ventricular ejection fraction is estimated at 60 %. No diagnostic regional wall motion abnormality. Grade II diastolic dysfunction, moderately elevated filling pressures. Status: Chronic Qualifiers: Coronary Disease-Associated Artery/Lesion type: [place] artery Three Affiliated vs. transplanted heart: [place] heart Associated angina: without angina Qualified Code(s): I25.10 - Atherosclerotic heart disease of [place] coronary artery without angina pectoris (7) HTN (hypertension): BP currently well controlled Status: Acute (8) Hyperlipidemia: Continue Atorvastatin Status: Acute (9) Insulin dependent diabetes mellitus: Home dose of Lantus listed at 50U BID. Patient noted to be hypoglycemic on CMP with blood sugar of 63. Hold Lantus for now. Use insulin sliding scale and assess 24 hr requirement and then re introduce long acting insulin Status: Acute Consult Attestations Medical Necessity Statement: Please see admitting team's note Coding Level of Care Code Acute Top Lift Nailer for Chg Fwd Diagnoses Suicidal ideation R45.851 BPPV (benign paroxysmal positional vertigo) H81.10 Carotid stenosis I65.23 Laterality: bilateral DOROTEO on CPAP G47.33; Z99.89 ESRD (end stage renal disease) N18.6 CAD (coronary artery disease) I25.10 Coronary Disease-Associated Artery/Lesion type: [place] artery Three Affiliated vs. transplanted heart: [place] heart Associated angina: without angina HTN (hypertension) I10 Hyperlipidemia E78.5 Insulin dependent diabetes mellitus
--- NOTE | 2020-04-29 23:17 | PC.NURSE ---
Skin assessment revealed below right knee amputee. Peritoneal dialysis port exiting left lower abdomen.
[2020-04-30] MEDS: ceFAZolin 1,000 mg SDV 2000 MG XX (00:42)
--- NOTE | 2020-04-30 00:43 | PC.NURSE ---
Pt came to NPU unit with order to transfuse 2.5% dextrose Dianeal low jose l peritoneal dialysis fluid 5xd. upon starting first infusion, it was noticed that the cap to her abdominal port was missing. Dr Scruggs of telenephrology notified for clarification of orders. telephone order received to infuse Ancef 2gm into 1st bag of Dianeal fluid, and proceed with dialysis exchange.
[2020-04-30] MEDS: Dianeal low Ca w/2.5% dex 2,000 mL Bag 2000 ML INTRAPERIT ×4 (05:13→18:12)
[2020-04-30 06:00] VITALS: BP 110/71; PULSE 68; RESP 17; TEMP 37; O2SAT 90
[2020-04-30 06:54] LABS: Glucose Point of Care 132 mg/dL (70-110)
[2020-04-30] MEDS: atorvastatin 40 mg Tablet PO (08:15)
[2020-04-30] MEDS: aspirin 81 mg Chew Tablet PO (08:15)
[2020-04-30] MEDS: levothyroxine 112 mcg Tablet 224 MCG PO (08:15)
[2020-04-30] MEDS: pantoprazole DR 40 mg Tablet PO (08:15)
[2020-04-30] MEDS: clopidogrel 75 mg Tablet PO (08:15)
[2020-04-30] MEDS: sevelamer 800 mg Tablet PO ×3 (09:17→20:02)
[2020-04-30] MEDS: brimonidine 0.2% Op Soln 5 mL Btl 1 DROP EYE-LEFT ×2 (09:17→18:18)
[2020-04-30] MEDS: dorzolamide/timolol Op Soln 10 mL Btl 1 DROP EYE-LEFT ×2 (09:17→18:19)
--- NOTE | 2020-04-30 10:18 | P.PN_ITS ---
Subjective Subjective: Interval history: Has been moved from psychiatry [facility] to medical floor because they were unable to perform PD. She denies complaints and is anxious to get out of here. Medications: Reviewed: Yes Vitals/I&O/Wt Last Vital Signs Temp 98.6 F 04/30/20 06:00 Pulse 68 04/30/20 06:00 Resp 17 04/30/20 06:00 BP 110/71 04/30/20 06:00 Pulse Ox 90 04/30/20 06:00 04/29/20 04/30/20 04/30/20 22:59 06:59 14:59 Intake Total 4480 / 4480 120 / 120 Output Total 200 / 200 5250 / 5450 Balance -200 / -200 -770 / -970 120 / 120 Weight last 48 hrs Weight 97.522 kg Data : 04/29/20 18:30 04/29/20 18:30 A&P Additional A&P Information Impression: 1. ESRD on peritoneal dialysis 2. Anemia 3. Diabetes 4. Depression 5. Hypertension Recommend: Continue CAPD 2.5%, 5x 2 liter exchanges daily. Gentamicin ointment to PD exit site. Attestations Medical Necessity Statement*: per primary service Time Spent in Patient Care: 16 - 35 minutes Coding Level of Care Code Acute Laborer Syrup Machine for Maris Braden
--- NOTE | 2020-04-30 10:41 | PC.NURSE ---
TRANSFER TO FLOOR Report called to EVAN Edward. Patient transferred via wheelchair by staff. 1:1 sitter at side. All belongings sent with patient. 96 hour hold rescinded by Dr. Rodriguez 04-30-20.
[2020-04-30 10:54] VITALS: BP 124/72; PULSE 64; RESP 18; TEMP 37.2; O2SAT 91
[2020-04-30 11:36] LABS: Glucose Point of Care 233 mg/dL (70-110)
[2020-04-30] MEDS: cholecalciferol (vitamin D3) 1,000 unit Tablet 1000 UNIT PO (11:40)
[2020-04-30] MEDS: escitalopram 10 mg Tablet 20 MG PO (11:40)
[2020-04-30] MEDS: OLANZapine 5 mg ODT PO (13:21)
--- NOTE | 2020-04-30 13:44 | P.HP_ITS ---
Providers/Chief Complaint Admitting Physician: Gallito Ghotra MD Primary Care Provider: Yovany Leonardo MD Chief Complaint: SI HPI NPU History of Present Illness Rizwana Herzog is a 55 year old female who was admitted to the adult psychiatric unit following an overdose of Tylenol and metoprolol in a suicide attempt. Patient states that she has become increasingly despondent over the past 6 months through a combination of her medical difficulties and her lack of support from family members. She has been presented with increasing challenges due to her multiple medical problems which are listed in this chart. She recently has had an amputation and a cerebrovascular event which have further impaired her mobility and capacity to perform her daily activities. She states that her has been not supportive and has been demeaning and dismissive. She cites a lack of emotional support. She reports increasing despondency being sad and blue on a daily basis, feeling hopeless, overwhelmed, irritable. She reports anhedonia. Sleep has been poor. She began having suicidal thoughts 2 weeks ago. She had no specific plan but apparently on the day of hospitalization, her made some particularly cutting and insensitive remarks. She impulsively took her pills stating that she had simply reached her limit. She denied the presence of auditory or visual hallucinations and substance abuse issues do not seem to be a factor. On interview, she is glad that the pills were not effective in achieving their desired goal at the time of ingestion. However she continues to be despondent and hopeless. She says that she used to enjoy playing with her animals and her grandchildren. She does not look forward to that at all and it brings her no hoda. There is nothing in the future for which she is anticipating. Her medical issues continue to expand. Emergency room physician HPI Narrative: 55-year-old female states she has been having suicidal thoughts over the last 2 to 3 days. She states she attempted to kill herself last night by taking a handful of Tylenol and 2 or 3 metoprolol pills. She states happened at midnight. Patient called her clinic and was placed under 96-hour hold and they called EMS who brought her here. She states that she just does not feel like living anymore. She denies any other ingestions. Denies worsening or improving factors. The patient is currently in talking therapy with Elina Cui. The patient presents herself as being active in his therapy. However meetings have been infrequent. Her last therapy appointment was over 3 months ago. Past psychiatric history is positive for 2 prior psychiatric hospitalizations. She is not particularly motivated to discuss her history and is vague about these hospitalizations. She says that the last was over 2 years ago when her medical problems completely knocked me out. She says that she was in the hospital for 2 weeks. There is no record of her being in this hospital psychiatric unit at any time. She could provide no indication of what was helpful about the hospitalization or what the outcome and treatment was. She says that she has been treated with a number of antidepressants but could not name any of them. Meds NPU Home Medications Medication Instructions Recorded Confirmed Last Taken Type aspirin 81 mg PO DAILY 06/25/19 04/29/20 04/28/20 History multivitamin [Multiple Vitamins] 1 tab PO DAILY 06/30/19 04/29/20 04/28/20 History paricalcitol [Zemplar] See Rx Instructions .ROUTE .COMPLEX 06/30/19 04/29/20 04/28/20 History ferric citrate 210 mg iron tablet See Rx Instructions .ROUTE 09/06/19 04/29/20 04/28/20 History .COMPLEX tab levothyroxine 112 mcg tablet 224 mcg PO DAILY #30 tab 12/11/19 04/29/20 04/28/20 Rx cholecalciferol (vitamin D3) 25 mcg PO DAILY 01/17/20 04/29/20 04/28/20 History [Vitamin D3] coenzyme Q10 [CoQ-10] 100 mg PO DAILY 01/17/20 04/29/20 04/28/20 History omega 8-iuk-kdk-fish oil [Fish Oil] 1 cap PO DAILY 01/17/20 04/29/20 04/28/20 History brimonidine See Rx Instructions .ROUTE .COMPLEX 01/31/20 04/29/20 04/28/20 History dorzolamide-timolol See Rx Instructions .ROUTE .COMPLEX 01/31/20 04/29/20 04/28/20 History pantoprazole 40 mg PO DAILY 02/16/20 04/29/20 04/28/20 History nitroglycerin 0.4 mg sublingual 0.4 mg SUBLINGUAL Q5M PRN #25 tab 03/26/20 04/29/20 04/18/20 Rx tablet atorvastatin 40 mg tablet 40 mg PO DAILY #30 tab 03/27/20 04/29/20 04/28/20 Rx clopidogrel 75 mg PO DAILY #30 tab 04/02/20 04/29/20 04/28/20 Rx Lantus Solostar U-100 Insulin 50 unit SUBCUT BID 04/18/20 04/29/20 04/29/20 History Rocklatan 1 drp OPHTHALMIC (EYE) BEDTIME 04/18/20 04/29/20 04/28/20 History sennosides-docusate sodium 1 tab PO DAILY 04/18/20 04/29/20 04/28/20 History meclizine 25 mg PO TID #42 tab 04/24/20 04/29/20 04/28/20 Rx low voltage electrician sock #1 ea 04/24/20 04/29/20 Unknown Rx sevelamer carbonate 800 mg PO TID 04/29/20 04/29/20 Unknown History Allergies Allergy/AdvReac Type Severity Reaction Status Date / Time metformin [From Glucophage] Allergy Severe Unknown Verified 04/26/20 12:11 venlafaxine [From Effexor] Allergy Severe ADR-Shakine Verified 04/26/20 12:11 ss PFSH NPU PFSH: Medical History Anxiety CAD (coronary artery disease) Chronic diastolic CHF (congestive heart failure) Compensated currently Chronic kidney disease, stage V Claustrophobia Depression Diabetes Insulin-dependent End stage renal disease ESRD (end stage renal disease) Gastroparesis GERD (gastroesophageal reflux disease) HTN (hypertension) Hyperlipidemia Hypothyroidism Partial nontraumatic amputation of left foot (~06/2019) Peripheral vascular disease TIA (transient ischemic attack) Vitamin D deficiency Surgical History History of appendectomy History of heart artery stent History of hysterectomy History of left heart catheterization History of right below knee amputation Peritoneal dialysis catheter in place S/P cholecystectomy S/P PICC central line placement Status post amputation of toe Family History Denies family history of CAD (coronary artery disease) Clotting disorder Dementia Bleeding disorder Social History Smoking and tobacco status: never smoked Alcohol intake: never Substance/Drug Use: never Household members: spouse and family History of recent travel: No Mental Status Exam MSE Comments: Mental Status Exam: The patient is encountered laying in her bed on the psychiatric unit with her face largely buried and a pillow. She responds on verbal stimuli and acknowledges the physicians presents. However through the first 5 minutes, her eyes remain closed and her answers are limited to a single word or grunts. She eventually becomes more interactive. The personal information she provides appears to be reliable as it is internally consistent and generally consistent with that in the chart. Appearance: hygiene is fair; no gross neurological deficits., Patient is nonambulatory Speech: Speech is of normal rate and rhythm and easily understood. She speaks in full sentences and answers are pertinent to the questions being asked. Thought processes: Thought processes are abstract. Judgment is adequate for safety. Associations: intact Psychotic processes: There is no indication of guarding or paranoia. There is no attention to the internal stimuli. Auditory and visual hallucinations are denied. Judgment: Insight is fair. Problem solving skills are adequate for safety. Orientation: The patient is oriented to person, place time and situation. Memory: no deficits noted in immediate, intermediate, or remote spheres. Attention: The patient is alert and interpersonally engaged. Language: Verbalizations are coherent. Fund of knowledge: Fund of knowledge is adequate. Affect/Mood: Affect is consistent with a depressed mood. pt denies suicidal ideation Affective range is constricted Psychosis: perception unimpaired except through cognitive distortion; reality testing intact. Vitals/I&O/Wt Last Vital Signs Temp 98.9 F 04/30/20 10:54 Pulse 64 04/30/20 10:54 Resp 18 04/30/20 10:54 BP 124/72 04/30/20 10:54 Pulse Ox 91 04/30/20 10:54 04/29/20 04/30/20 04/30/20 22:59 06:59 14:59 Intake Total 4480 / 4480 120 / 120 Output Total 200 / 200 5250 / 5450 Balance -200 / -200 -770 / -970 120 / 120 Weight last 48 hrs Weight 97.522 kg Data NPU : 04/29/20 18:30 04/29/20 18:30 A&P Assessment and plan (1) Suicidal ideation: Status: Acute (2) Major depression, recurrent: Status: Acute Qualifiers: Active/Remission status: currently active Major depression episode severity: severe Psychotic features: without psychotic features Qualified Co de(s): F33.2 - Major depressive disorder, recurrent severe without psychotic features (3) Adjustment disorder with mixed disturbance of emotions and conduct: Status: Acute Additional A&P Information Rizwana Herzog is a 55-year old woman with the misfortune of having been labored with an incredible number of medical maladies. These currently are being amplified by psychosocial dynamics which are increasing the severity of these barriers to optimal level of function. She feels burdened to the extent t hat she is not able to do things that she used to do previously and when she is able to accomplish tasks of daily living that would be simple for other people, she is not given credit by those around her. She meets criteria for clinical depression. Her suicide attempt was impulsive and again amplified by either the lack of availability or lack of engagement of supplemental emotional support systems. Due to the psychiatric conditions and treatment listed in the Assessment and Plan - the patient requires continued hospitalization. Will provide a safe and therapeutic environment for patient.. Will continue inpatient treatment to allow for medication adjustment and monitoring. Will continue q15 min safety checks. Will continue current medications and monitor for medication side effects. On hospital day #1, will initiate Lexapro 20 mg daily. Potential benefits and side effects of this medication were discussed in detail and its use was agreed upon by the patient. But it was also emphasized that she must also begin participating in individual counseling and begin to establish participation and enjoyable self-esteem supporting activities and building mutually supportive interpersonal relationships. Monitor patient's mood, sleep, appetite, and behavior closely. Encourage patient to participate in individual and group therapeutic sessions on the freeman. Estimated length of stay 5 days The expected benefits and potential side effects of patient's psychiatric medications were discussed with the patient. The patient understands and consents to treatment. CRITERIA FOR DISCHARGE: stable on medications and no longer an imminent threat to self or others Involuntary Hold Information 96 Hour Hold: 96 Hour Involuntary Admission: Yes 96 Hour Hold Ending Date: 05/06/20 96 Hour Hold Ending Time: 20:06 Attestations NPU Medical Necessity Statement*: Patient will remain in the hospital another 3-4 nights to establish medication tolerance and follow-up treatment planning. Coding Level of Care Code Acute Merchandise Executive for Maris Braden Diagnoses Suicidal ideation R45.851 Major depression, recurrent F33.2 Active/Remission status: currently active Major depression episode severity: severe Psychotic features: without psychotic features Adjustment disorder with mixed disturbance of emotions and conduct F43.25
[2020-04-30 14:00] VITALS: BP 104/64; PULSE 65; RESP 17; TEMP 36.8; O2SAT 97
[2020-04-30] MEDS: ondansetron 4 MG Tablet PO (14:04)
--- NOTE | 2020-04-30 15:35 | PC.NURSE ---
patient doesn't have 1:1 order. Senior Net Engineer notified Dr Luciano that there is no 1:[address] order. [address] Luciano said she is stable from his side and I need to talk to Dr Rodriguez. Senior Net Engineer notified Dr Rodriguez that there is no 1:[address] Rodriguez said he lifted patient's 95 hour hold and if patient wants to sign out AMA she can, he said he is not ordering a 1:1 and if patient is here in the morning he will see her. Dr Rodriguez's number is [phone].
[2020-04-30] MEDS: benztropine 1 mg Tablet PO (16:09)
--- NOTE | 2020-04-30 16:35 | PC.NURSE ---
senior underwriter called patient's [phone] as requested by patient. Left message
--- NOTE | 2020-04-30 17:30 | P.PN_ITS ---
Subjective Subjective: Interval history: Patient admitted last night for suicidal ideation under neuropsych freeman. Today during examination patient has been transferred over to medical surgical floor because patient is requiring peritoneal dialysis and as per the nurses from NPU did not really aware how to do the peritoneal dialysis. On examination patient lying operatively in bed with sitter on bedside. Denies any nausea, vomiting, headache, dizziness. States she she is not having any chest pain, palpitation. States he is at baseline with her medical problems. Medications: Reviewed: Yes Vitals/I&O/Wt Last Vital Signs Temp 98.2 F 04/30/20 14:00 Pulse 65 04/30/20 14:00 Resp 17 04/30/20 14:00 BP 104/64 04/30/20 14:00 Pulse Ox 97 04/30/20 14:00 04/30/20 04/30/20 04/30/20 06:59 14:59 22:59 Intake Total 4480 / 4480 120 / 120 Output Total 5250 / 5450 Balance -770 / -970 120 / 120 Weight last 48 hrs Weight 97.522 kg Physical Exam Narrative: EXAM NARRATIVE: GEN: Awake, alert and oriented, no acute distress CVS: S1S2 N RS: CTA B/L Abd: Soft, nt/nd , bs+ TURNSTILE ATTENDANT: no focal neuro deficits Data : 04/29/20 18:30 04/29/20 18:30 A&P Assessment and plan (1) Suicidal ideation: Patient admitted for NPU for management. As per psychiatric team. Status: Acute (2) BPPV (benign paroxysmal positional vertigo): Continue meclizine 25mg TID Status: Acute (3) Carotid stenosis: currently asymptomatic, evaluated on recent admission. Outpatient f/up with Dr. George Status: Acute Qualifiers: Laterality: bilateral Qualified Code(s): I65.23 - Occlusion and stenosis of bilateral carotid arteries (4) DOROTEO on CPAP: Status: Acute (5) ESRD (end stage renal disease): Nephrology consult for continutaion of PD. As per nephrology patient to have PD as per cycles at home. No current electrolyte abnormalities Status: Acute (6) CAD (coronary artery disease): Recent PCI to LAD In Apr 2020 Continue ASA, Plavix, Atorvastatin Beta blockers discontinued on last admission due to bradycardia. Continue to monitor off B blockers for now Echo from 01/2020 Normal left ventricular cavity size and systolic function. Left ventricular ejection fraction is estimated at 60 %. No diagnostic regional wall motion abnormality. Grade II diastolic dysfunction, moderately elevated filling pressures. Status: Chronic Qualifiers: Coronary Disease-Associated Artery/Lesion type: [place] artery [place] vs. transplanted heart: de[place] heart Associated angina: without angina Qualified Code(s): I25.10 - Atherosclerotic heart disease of [place] coronary artery without angina pectoris (7) HTN (hypertension): BP currently well controlled Status: Acute (8) Hyperlipidemia: Continue Atorvastatin Status: Acute (9) Insulin dependent diabetes mellitus: Home dose of Lantus listed at 50U BID. Patient noted to be hypoglycemic on CMP with blood sugar of 63. Decrease Lantus to30 units only at bedtime. Think sliding scale at severe dose. Status: Acute Additional A&P Information Patient is currently stable from medical point of view for her multiple medical comorbidities. We will continue the medications as per home schedule except for Lantus for which dose has been decreased to 30 units at bedtime. Continue with insulin sliding scale at severe dose. Attestations Medical Necessity Statement*: As per primary team for suicidal ideation. Time Spent in Patient Care: Greater than 35 minutes (>than 50% of time spent in counselling and/or direct pt care on unit) . Coding Level of Care Code Acute Shoe Salesperson for Chg Fwd Diagnoses Suicidal ideation R45.851 BPPV (benign paroxysmal positional vertigo) H81.10 Carotid stenosis I65.23 Laterality: bilateral DOROTEO on CPAP G47.33; Z99.89 ESRD (end stage renal disease) N18.6 CAD (coronary artery disease) I25.10 Coronary Disease-Associated Artery/Lesion type: [place] artery [place] vs. transplanted heart: [place] heart Associated angina: without angina HTN (hypertension) I10 Hyperlipidemia E78.5 Insulin dependent diabetes mellitus
[2020-04-30 18:17] LABS: Glucose Point of Care 269 mg/dL (70-110)
[2020-04-30] MEDS: sucralfate 1 gm/10 mL Oral Liq UDC PO ×2 (18:18→20:02)
[2020-04-30 20:59] LABS: Glucose Point of Care 234 mg/dL (70-110)
== END 2020-04-30 21:33 | disposition left against medical advice (07) | DRG 917 ==
LOC: ER 17:48 → NP 20:48 → MEDSURG 04-30 10:41
PROVIDERS: Admitting Provider Psychiatry & Neurology Psychiatry; Emergency Provider Emergency Medicine; PCP Internal Medicine; Visit Provider Psychiatry & Neurology Psychiatry
DX: T39.1X2A Poisoning by 4-Aminophenol derivatives, intentional self-harm, initial encounter (principal); N18.6 End stage renal disease; I13.2 Hypertensive heart and chronic kidney disease with heart failure and with stage 5 chronic kidney disease, or end stage renal disease; I50.32 Chronic diastolic (congestive) heart failure; R45.851 Suicidal ideations; T44.7X2A Poisoning by beta-adrenoreceptor antagonists, intentional self-harm, initial encounter; E11.22 Type 2 diabetes mellitus with diabetic chronic kidney disease; Z99.2 Dependence on renal dialysis; I25.10 Atherosclerotic heart disease of native coronary artery without angina pectoris; Z95.5 Presence of coronary angioplasty implant and graft; F40.240 Claustrophobia; F41.8 Other specified anxiety disorders; K21.9 Gastro-esophageal reflux disease without esophagitis; E78.5 Hyperlipidemia, unspecified; E03.9 Hypothyroidism, unspecified; E11.51 Type 2 diabetes mellitus with diabetic peripheral angiopathy without gangrene; Z89.432 Acquired absence of left foot; Z86.73 Personal history of transient ischemic attack (TIA), and cerebral infarction without residual deficits; E55.9 Vitamin D deficiency, unspecified; Z89.511 Acquired absence of right leg below knee; D63.1 Anemia in chronic kidney disease; I65.23 Occlusion and stenosis of bilateral carotid arteries; H81.10 Benign paroxysmal vertigo, unspecified ear; Z53.29 Procedure and treatment not carried out because of patient's decision for other reasons
CPT/HCPCS: 12345; 36416; 80048; 80053; 80307; 82962; 83605; 85025; 90935; 96372; 99284; J0690; J1815; Q0162; Q3014

== ENCOUNTER 2020-05-01 10:19 | Emergency (ER) | payer MEDICARE, MEDICAID, SELFPAY ==
[2020-05-01 10:30] VITALS: BP 105/58; PULSE 67; RESP 16; TEMP 36.9; O2SAT 97; BMI 34.9
--- NOTE | 2020-05-01 10:44 | ECG_ITS ---
[facility] Test Date: 2020-05-01 Pat Name: Rizwana Herzog Department: Room: Gender: Female Director Biology: : 1965 Requested By: Linda Cortes Order Number: [id number] Catherine MD: ARIEL TUCKER Measurements Intervals [place] Rate: 66 P: 199 AK: 226 QRS: -51 QRSD: 95 T: 22 QT: 396 QTc: 417 Interpretive Statements SINUS RHYTHM WITH FIRST DEGREE AV BLOCK POSSIBLE ANTERIOR MYOCARDIAL INFARCTION , PROBABLY OLD [30 ms Q WAVE IN V3/V4, OR R < 0.2 mV IN V4] INFERIOR MYOCARDIAL INFARCTION , PROBABLY OLD [40+ ms Q WAVE AND/OR ST/T ABNORMALITY IN II/aVF] Compared to ECG 04/23/2020 23:50:11 First degree AV block now present Left-axis deviation no longer present Myocardial infarct finding still present Electronically Signed On 05-02-2020 15:31:51 COMPUTER SYSTEMS INFORMATION DIRECTOR by ARIEL TUCKER [email or web address]
--- NOTE | 2020-05-01 10:44 | W.ED.PSYCH ---
HPI - Psych General: Chief Complaint: Psychiatric Symptoms Stated Complaint: mhe Time Seen by Provider: 05/01/20 10:30 Source: patient Mode of arrival: ambulatory Limitations: no limitations History of Present Illness: HPI Narrative: 55-year-old female patient presents to the emergency department for mental health evaluation. She reports 04/28/2020, was told by her family that she did not do anything, she reports feeling worthless since statement was made. She has insulin-dependent diabetes, chronic kidney disease, remains on peritoneal dialysis, recent stent placement, cardiac history. She reports medical problems caused her to feel tired all the time. She reports would like to feel good again but is tired of feeling bad. She is requesting help today. She reports Wednesday, took a handful of 500 mg Tylenol, also took 3 tablets of 50 mg of Toprol all. She reports had a plan and continues to have thoughts of harming herself. She does have positive thoughts of wishing she would not wake up. She reports suicidal thoughts x2 weeks. She reports blood sugars have been up and down. Reports nausea this morning, took Zofran at home prior to arrival, some resolution of nausea. Patient was admitted into the hospital, [facility] floor and left AMA yesterday. She reports is not feeling better and is requesting evaluation and placement into behavioral health unit for continued suicidal ideations, thoughts and complaints of depression. Associated symptoms: Reports depression and suicidal ideation; Deny auditory hallucinations or visual hallucinations Review of Systems General: Reports: 10 or more systems reviewed and unremarkable except in HPI and below Const: Denies: fever(s), chills or diaphoresis Eyes: Denies: blurry vision or eye redness ENMT: Denies: throat pain, dental pain or disequilibrium Card: Denies: chest pain, palpitations or irregular heart rhythm Resp: Denies: dyspnea, productive cough or non-productive cough GI: Denies: abdominal pain, nausea or vomiting : Denies: difficulty voiding or dysuria Musc: Denies: neck pain, back pain, joint warmth or joint stiffness Skin/Breast: Denies: rash or pruritus Neuro: Denies: headache(s), weakness in extremities or behavioral changes Psych: Reports: anxiety, depression, mood swings, sleeping more, hopelessness, loss of interest, change in appetite and suicidal ideation; Denies: visual hallucinations or auditory hallucinations Refugio/Lymph: Denies: easy bruising PFSH ED PFSH: Medical History Anxiety CAD (coronary artery disease) Chronic diastolic CHF (congestive heart failure) Compensated currently Chronic kidney disease, stage V Claustrophobia Depression Diabetes Insulin-dependent End stage renal disease ESRD (end stage renal disease) Gastroparesis GERD (gastroesophageal reflux disease) HTN (hypertension) Hyperlipidemia Hypothyroidism Partial nontraumatic amputation of left foot (~06/2019) Peripheral vascular disease TIA (transient ischemic attack) Vitamin D deficiency Surgical History History of appendectomy History of heart artery stent History of hysterectomy History of left heart catheterization History of right below knee amputation Peritoneal dialysis catheter in place S/P cholecystectomy S/P PICC central line placement Status post amputation of toe Family History Denies family history of CAD (coronary artery disease) Clotting disorder Dementia Bleeding disorder Social History Smoking and tobacco status: never smoked Alcohol intake: never Household members: spouse and family History of recent travel: No Physical Exam Const: COMMON NORMALS: no acute distress, patient oriented x3, healthy appearing and alert GENERAL APPEARANCE: cooperative, comfortable, well kempt and well hydrated HENMT: COMMON NORMALS: normocephalic, Normal external nose present and moist oral mucous membranes HEAD & SCALP: normocephalic NOSE: Normal external nose present Eye: COMMON NORMALS: Equal, round and reactive pupils present and EOMs intact bilaterally GENERAL EYE: appearance normal, both eyes and all related structures PUPIL: Yes Equal, round and reactive pupils present Neck/C-Spine: COMMON NORMALS: full ROM and no lymphadenopathy GENERAL: Yes normal visual inspection and Yes trachea midline CERVICAL SPINE: Yes cervical ROM normal Lymph: LYMPHATIC: no lymphadenopathy noted Chest: COMMONS NORMALS: normal inspection of the chest Resp: COMMON NORMALS: normal respiratory effort and clear to auscultation bilaterally AUSCULTATION: clear to auscultation bilaterally Cardio: COMMON NORMALS: regular rhythm, S1 normal heart sound present and S2 normal heart sound present RHYTHM: regular rhythm HEART SOUNDS: S1 normal heart sound present and S2 normal heart sound present GI: COMMON NORMALS: Soft to palpation and non-tender INSPECTION: Yes normal to inspection PALPATION: Yes Soft to palpation : COMMON NORMALS: Yes no CVA tenderness BLADDER/KIDNEY EXAM: Yes no CVA tenderness Back/Pelvis: COMMON NORMALS: no CVA tenderness and thoracic and lumbar spine normal to inspection Extremity: COMMON NORMALS: normal to inspection and capillary refill normal NARRATIVE EXTREMITY EXAM: RLE BKA GENERAL: Yes normal exam except as noted Neuro: REBECCA COMA SCALE: document GCS findings Rebecca coma scale eye opening: Spontaneous Cheney coma scale verbal response: Orientated Rebecca coma scale motor response: Obey commands Rebecca coma scale total score: 15 COMMON NORMALS: patient oriented x3 and no focal motor deficits SENSORIUM/ORIENTATION: Yes alert COORDINATION/BALANCE: [id number] test normal MOTOR EXAM: 5/5 motor strength present throughout COORDINATION: [id number] test normal Psych: COMMON NORMALS: mental status grossly normal, Normal thought process present, cooperative, speech normal, activity/motor behavior normal, denies hallucinations and denies homicidal ideation APPEARANCE: Yes grossly normal and Yes well kempt ATTITUDE: Yes calm and Yes Withdrawn affect present ACTIVITY/MOTOR BEHAVIOR: Yes appropriate eye contact SPEECH: Yes normal speech MOOD & AFFECT: Yes depressed mood and Yes Flat affect present THOUGHT PROCESS: Normal thought process present THOUGHT CONTENT: Yes Normal thought content present and Yes Suicidality present ATTENTION/CONCENTRATION: Yes attention grossly intact and Yes concentration grossly intact INSIGHT: Good insight present (Psych) JUDGEMENT: Good judgement present (Psych) Skin: COMMON NORMALS: no rashes or lesions noted and turgor normal GENERAL SKIN EXAM: no rashes or lesions noted and turgor normal MDM - Psych Lab Data: Labs: Lab Results 05/01/20 05/01/20 05/01/20 Range/Units 11:37 11:37 11:37 WBC 7.6 (4.0-10.0) 10^3/ uL RBC 2.95 L (4.1-5.3) 10^6/u L Hgb 9.4 L (11.5-15.3) g/dL Hct 28.9 L (37.0-47.0) % MCV 98.0 (81-99) fL MCH 31.9 (28.0-34.0) pg MCHC 32.5 (30.0-36.0) g/dL RDW 13.4 (12.1-15.1) % Plt Count 231 (130-400) 10^3/c mm MPV 10.5 H (7.4-10.4) fL Neut % (Auto) 72.4 % Lymph % (Auto) 15.7 % Freestone % (Auto) 7.8 % Eos % (Auto) 2.6 % Baso % (Auto) 0.7 % Neut # (Auto) 5.49 (1.8-7.7) 10^3/u L Lymph # (Auto) 1.2 (0.8-4.8) 10^3/u L Freestone # (Auto) 0.6 (0.2-0.9) 10^3/u L Eos # (Auto) 0.2 (0.0-0.8) 10^3/u L Baso # (Auto) 0.1 (0.0-0.1) 10^3/u L Nucleated RBC % (a uto) 0 % Nucleated RBCs # 0.0 /100WBC Sodium 134 L (136-145) mmol/L Potassium 3.5 (3.5-5.1) mmol/L Chloride 91 L (98-107) mmol/L Carbon Dioxide 27 (22-29) mmol/L Anion Gap 19.5 H (5-19) BUN 29 H (6-20) mg/dL Creatinine 7.5 H* (0.5-0.9) mg/dL GFR Calculation 5.6 L (90-130) mL/min Glucose 122 H (65-115) mg/dL Calculated Osmolal ity 285 (285-295) mOsm/k g Calcium 9.3 (8.5-10.5) mg/dL Total Bilirubin 0.3 (0.15-1.2) mg/dL AST 14 (0-32) U/L ALT 8 (0-33) U/L Alkaline Phosphata se 97 (35-105) IU/L Total Protein 6.3 L (6.6-8.7) g/dL Albumin 3.0 L (3.5-5.2) g/dL Globulin 3.3 (1.3-4.6) g/dL Lipase 19 (13-60) U/L Butalbital Cancelled Salicylates < 0.3 L (3-10) mg/dL Opiates Screen Cancelled Codeine Cancelled Morphine Cancelled Hydrocodone Cancelled Oxycodone Cancelled Hydromorphone Cancelled Acetaminophen < 5.0 L (10-30) ug/mL Barbiturates Cancelled Phencyclidine Scre en Cancelled Phencyclidine (PCP ) Cancelled Amphetamines Scree n Cancelled Amphetamines Cancelled Methamphetamine Cancelled Methylenedioxyamph MDA Cancelled MDMA Cancelled Amobarbital Cancelled Butabarbital Cancelled Pentobarbital Cancelled Phenobarbital Cancelled Secobarbital Cancelled Alprazolam Screen Cancelled Benzodiazepines Cancelled Nordiazepam Cancelled Desalkylflurazepam Cancelled Lorazepam Level Cancelled Oxazepam Cancelled Cocaine Cancelled Cocaine Metabolite Cancelled Cocaethylene Cancelled Benzoylecgonine Co nfrm Cancelled Ecgonine Methyl Es ter Cancelled Tetrahydrocannabin ol Cancelled Delta-9 THC Cancelled Delta-9 Carboxy TH C Cancelled Drug Screen Commen t Cancelled Ethyl Alcohol < 10 (0-10) mg/dL Discharge Plan Discharge Patient Disposition: Home Clinical Impression: Feeling hopeless, Nausea Depression Qualifiers: Depression Type: other depression Qualified Code(s): F32.89 - Other specified depressive episodes Condition: Stable Prescriptions: No Action nitroglycerin 0.4 mg tablet, sublingual 0.4 mg SUBLINGUAL Q5M PRN (Reason: Chest Pain) Qty: 25 RF: 6 levothyroxine 112 mcg tablet 224 mcg PO DAILY Qty: 30 RF: 3 atorvastatin 40 mg tablet 40 mg PO DAILY Qty: 30 RF: 5 (DME) dye weigher helper sock See Rx Instructions .Route .MEDSUPPLY Qty: 1 RF: 0 aspirin 81 mg Tablet,Chewable 81 mg PO DAILY RF: 0 Auryxia 210 mg iron tablet See Rx Instructions .ROUTE .COMPLEX RF: 0 pantoprazole 40 mg tablet,delayed release (DR/EC) 40 mg PO DAILY RF: 0 Rocklatan 0.02-0.005 % Drops 1 drp OPHTHALMIC (EYE) BEDTIME RF: 0 sennosides-docusate sodium 8.6-50 mg tablet 1 tab PO DAILY RF: 0 Lantus Solostar U-100 Insulin 100 unit/mL (3 mL) insulin pen 50 unit SUBCUT BID RF: 0 sevelamer carbonate 800 mg tablet 800 mg PO TID RF: 0 clopidogrel 75 mg tablet 37.5 mg PO DAILY RF: 0 multivitamin [Multiple Vitamins] Tablet 1 tab PO DAILY RF: 0 paricalcitol [Zemplar] 1 mcg capsule See Rx Instructions .ROUTE .COMPLEX RF: 0 coenzyme Q10 [CoQ-10] 100 mg Capsule 100 mg PO DAILY RF: 0 cholecalciferol (vitamin D3) [Vitamin D3] 25 mcg (1,000 unit) Tablet,Chewable 25 mcg PO DAILY RF: 0 omega 5-nru-kbh-fish oil [Fish Oil] 300-1,000 mg Capsule,Delayed Release(Dr/Ec) 1 cap PO DAILY RF: 0 brimonidine 0.2 % drops See Rx Instructions .ROUTE .COMPLEX RF: 0 dorzolamide-timolol 22.3-6.8 mg/mL drops See Rx Instructions .ROUTE .COMPLEX RF: 0 meclizine 25 mg Tablet 25 mg PO TID Qty: 42 RF: 0 Discharge Orders: Discharge Order (Routine); Ordered 05/01/20 Ordered By: Linda Veronica Referrals: Yovany Leonardo MD [Primary Care Provider] - Discharge Diet: Diabetic Discharge Activity: Limit activity as instructed Patient Instructions: Depression (ED), Acute Nausea and Vomiting (ED), Suicide Prevention for Adults (ED) Activity Restrictions/Additional Instructions: Follow-up with psychiatry/counseling as directed by Dr. Rodriguez Continue follow-up with crisis hotline if thoughts of hopelessness occurs, return to the emergency department if you develop suicidal ideations plans or thoughts Continue follow-up with behavioral health Continue Zofran as needed for nausea Clear liquid diet, then advance to diabetic diet, limit activity as per cardiology instructions. Return to the emergency department if you develop chest pain, shortness of breath or other concerning symptoms. Coding Level of Care Code ED Customer Technical Services Manager for [facility] Exam Comprehensive
[2020-05-01 10:46] VITALS: PULSE 78; RESP 18; O2SAT 97
[2020-05-01 11:35] VITALS: RESP 18
[2020-05-01 11:54] LABS: Basophils # 0.1 10^3/uL (0.0-0.1); Basophils % 0.7 %; Eosinophils # 0.2 10^3/uL (0.0-0.8); Eosinophils % 2.6 %; Hematocrit 28.9 % (37.0-47.0); Hemoglobin 9.4 g/dL (11.5-15.3); Lymphocytes # 1.2 10^3/uL (0.8-4.8); Lymphocytes % 15.7 %; Mean Corpuscular HGB Conc 32.5 g/dL (30.0-36.0); Mean Corpuscular Hemoglobin 31.9 pg (28.0-34.0); Mean Platelet Volume 10.5 fL (7.4-10.4); Monocytes # 0.6 10^3/uL (0.2-0.9); Monocytes % 7.8 %; Neutrophils # 5.49 10^3/uL (1.8-7.7); Neutrophils % 72.4 %; Nucleated Red Blood Cells % 0 %; Platelet Count 231 10^3/cmm (130-400); Red Blood Count 2.95 10^6/uL (4.1-5.3); Red Cell Distribution Width 13.4 % (12.1-15.1); White Blood Count 7.6 10^3/uL (4.0-10.0)
[2020-05-01 12:11] LABS: Alanine Aminotransferase 8 U/L (0-33); Alkaline Phosphatase 97 IU/L (35-105); Anion Gap 19.5 (5-19); Aspartate Amino Transferase 14 U/L (0-32); Blood Urea Nitrogen 29 mg/dL (6-20); Calcium 9.3 mg/dL (8.5-10.5); Carbon Dioxide 27 mmol/L (22-29); Chloride 91 mmol/L (98-107); Globulin 3.3 g/dL (1.3-4.6); Glomerular Filtration Rate 5.6 mL/min (90-130); Glucose 122 mg/dL (65-115); Lipase 19 U/L (13-60); Osmolality Calculated 285 mOsm/kg (285-295); Potassium 3.5 mmol/L (3.5-5.1); Sodium 134 mmol/L (136-145); Total Bilirubin 0.3 mg/dL (0.15-1.2); Total Protein 6.3 g/dL (6.6-8.7)
[2020-05-01 12:17] LABS: Acetaminophen < 5.0 ug/mL (10-30); Alcohol Level < 10 mg/dL (0-10); Salicylate < 0.3 mg/dL (3-10)
--- NOTE | 2020-05-01 13:40 | P.CONIM_ITS ---
Providers/Reason for Consult Consulting Physican/Specialty*: Psychiatry - Giuseppe Rodriguez MD Reason for Consult*: Assess for imminent risk to self or others Primary Care Provider: Yovany Leonardo MD Psych Consult HPI History of Present Illness Rizwana Herzog is a 55 year old female seen by this physician less than 24 hours ago for the similar complaint after she had been admitted to the neuropsychiatric unit. Patient presents to the emergency room with the following report from the ER staff: HPI Narrative: 55-year-old female patient presents to the emergency department for mental health evaluation. She reports 04/28/2020, was told by her family that she did not do anything, she reports feeling worthless since stateme nt was made. She has insulin-dependent diabetes, chronic kidney disease, remains on peritoneal dialysis, recent stent placement, cardiac history. She reports medical problems caused her to feel tired all the time. She reports would like to feel good again but is tired of feeling bad. She is requesting help today. Following the patient's report to the emergency room, information from the [facility] s intervention worker was acquired: Intervention:: darkroom worker used open ended questions and supportive listening to assess client current level of needs. Client reported that she escaped from the hospital and thinks that she needs to go back. Client stated that she is still having suicidal thoughts and is afraid that I will try again . darkroom worker talked to client's daughter, Josefa, who agreed that she felt comfortable transporting client back to the hospital. darkroom worker contacted the ER and the NPU; client did not escape from the hospital but she did leave AMA. Events leading to her original hospitalization less than 48 hours ago will be briefly reviewed here though full details are in her chart. History of Present Illness Rizwana Herzog is a 55 year old female who was admitted to the adult psychiatric unit following an overdose of Tylenol and metoprolol in a suicide attempt. Patient states that she has become increasingly despondent over the past 6 months through a combination of her medical difficulties and her lack of support from family members. She has been presented with increasing challenges due to her multiple medical problems which are listed in this chart. She recently has had an amputation and a cerebrovascular event which have further impaired her mobility and capacity to perform her daily activities. She states that her has been not supportive and has been demeaning and dismissive. She cites a lack of emotional support. She reports increasing despondency being sad and blue on a daily basis, feeling hopeless, overwhelmed, irritable. She reports anhedonia. Sleep has been poor. She began having suicidal thoughts 2 weeks ago. She had no specific plan but apparently on the day of hospitalization, her made some particularly cutting and insensitive remarks. She impulsively took her pills stating that she had simply reached her limit. She denied the presence of auditory or visual hallucinations and substance abuse issues do not seem to be a factor. On interview, she is glad that the pills were not effective in achieving their desired goal at the time of ingestion. However she continues to be despondent and hopeless. She says that she used to enjoy playing with her animals and her grandchildren. She does not look forward to that at all and it brings her no hoda. There is nothing in the future for which she is anticipating. Her medical issues continue to expand. Rizwana Herzog is a 55-year old woman with the misfortune of having been labored with an incredible number of medical maladies. These currently are being amplified by psychosocial dynamics which are increasing the severity of these barriers to optimal level of function. She feels burdened to the extent that she is not able to do things that she used to do previously and when she is able to accomplish tasks of daily living that would be simple for other people, she is not given credit by those around her. She meets criteria for clinical depression. Her suicide attempt was impulsive and again amplified by either the lack of availability or lack of engagement of supplemental emotional support systems. The patient was interviewed in a neef-fu-khal manner in emergency rooms unit #9: It is unclear what happened after the patient left the hospital AGAINST MEDICAL ADVICE last evening. She does not detail any specific events but continues to refer to her lack of emotional support by her . She continues to detail her considerable medical disabilities and her frustration and getting appropriate care with barriers placed on her by the COVID pandemic. Most specifically, her meetings with individual therapist have been over the phone which is frustrating to her and it is difficult for her to have those sessions in privacy. While there is problems exist, they have not changed since yesterday. In discussion today, the patient reiterated her same feeling of abandonment. At no time did she state that she was intending to suicide or harm herself. To her benefit, it sounds as though she may have contacted crisis intervention in an attempt to engage at supplemental emotional support. Unfortunately she winds up in the emergency room again feeling abandoned with the only institution willing to accept her in the state as being the hospital. PFSH NPU PFSH: Medical History Anxiety CAD (coronary artery disease) Chronic diastolic CHF (congestive heart failure) Compensated currently Chronic kidney disease, stage V Claustrophobia Depression Diabetes Insulin-dependent End stage renal disease ESRD (end stage renal disease) Gastroparesis GERD (gastroesophageal reflux disease) HTN (hypertension) Hyperlipidemia Hypothyroidism Partial nontraumatic amputation of left foot (~06/2019) Peripheral vascular disease TIA (transient ischemic attack) Vitamin D deficiency Surgical History History of appendectomy History of heart artery stent History of hysterectomy History of left heart catheterization History of right below knee amputation Peritoneal dialysis catheter in place S/P cholecystectomy S/P PICC central line placement Status post amputation of toe Family History Denies family history of CAD (coronary artery disease) Clotting disorder Dementia Bleeding disorder Social History Smoking and tobacco status: never smoked Alcohol intake: never Household members: spouse and family History of recent travel: No Mental Status Exam MSE Comments: Mental Status Exam: The patient is encountered laying in her bed in unit #9 on her right side with her facing away from the door. She has the covers over her head. She is wearing a mask. She is immediately engaged with this physician and recalls his identity. Eye contact is good. The information she provides is believed to be reliable with the exception of her claim that she contacted her therapist today. Appearance: hygiene is fair; no gross neurological deficits., Gait was not observed Speech: Speech is of normal rate and rhythm and easily understood. She speaks in full sentences. Thought processes: Thought processes are abstract. Judgment is adequate for safety. Psychotic processes: There is no indication of guarding or paranoia. There is no attention to the internal stimuli. Auditory and visual hallucinations are denied. Judgment: Insight is fair. Problem solving skills are adequate for safety. Orientation: The patient is oriented to person, place time and situation. Memory: no deficits noted in immediate, intermediate, or remote spheres. Attention: The patient is alert and interpersonally engaged. Language: Verbalizations are coherent. Fund of knowledge: Fund of knowledge is adequate. Affect/Mood: Affect is consistent with a depressed mood. pt denies suicidal ideation Affective range is appropriate with appreciation for humor. Psychosis: perception unimpaired except through cognitive distortion; reality testing intact. Vitals/I&O/Wt Last Vital Signs Temp 98.4 F 05/01/20 10:30 Pulse 78 05/01/20 10:46 Resp 18 05/01/20 11:35 BP 105/58 05/01/20 10:30 Pulse Ox 97 05/01/20 10:46 Weight last 48 hrs Weight 95.254 kg A&P Assessment and plan (1) Major depression, recurrent: Status: Acute Qualifiers: Active/Remission status: currently active Major depression episode severity: severe Psychotic features: without psychotic features Qualified Code(s): F33.2 - Major depressive disorder, recurrent severe without psychotic features (2) Adjustment disorder with mixed disturbance of emotions and conduct: Status: Acute Additional A&P Information Again, Rizwana Herzog is a 55-year old woman with the misfortune of having been labored with an incredible number of medical maladies. These currently are being amplified by psychosocial dynamics which are increasing the severity of these barriers to optimal level of function. She feels burdened to the extent that she is not able to do things that she used to do previously and when she is able to accomplish tasks of daily living that would be simple for other people, she is not given credit by those around her. She meets criteria for clinical depression. Her suicide attempt was impulsive and again amplified by either the lack of availability or lack of engagement of supplemental emotional support systems. It was strongly recommended that she continue her Lexapro 20 mg daily and she should be on day #2. She agrees that the issues which are causing her such dysphoria at this time are going to take some time for change. We discussed how to best interact with her therapist and acknowledged that she truly does have significant barriers both in having medical and mental health problems treated effectively. However she was in agreement that persistence would be rewarded. She is not felt to be an imminent danger to self or others at this time and hospitalization at this time would likely provide no benefit. Involuntary Hold Information 96 Hour Hold: 96 Hour Involuntary Admission: Yes 96 Hour Hold Ending Date: 05/06/20 96 Hour Hold Ending Time: 20:06 Attestations NPU Medical Necessity Statement*: Further hospitalization will be at the discretion of the judgment of emergency room staff. Coding Level of Care Code Acute Finance Business Partner for [facility] Fwd Diagnoses Major depression, recurrent F33.2 Active/Remission status: currently active Major depression episode severity: severe Psychotic features: without psychotic features Adjustment disorder with mixed disturbance of emotions and conduct F43.25
[2020-05-01 14:17] VITALS: BP 103/52; PULSE 64; RESP 16; O2SAT 97
== END 2020-05-01 14:19 | disposition home or self-care (01) ==
PROVIDERS: Emergency Provider Nurse Practitioner Family; PCP Internal Medicine
DX: F32.89 Other specified depressive episodes (principal); R11.0 Nausea; Z79.82 Long term (current) use of aspirin; Z79.02 Long term (current) use of antithrombotics/antiplatelets; I25.10 Atherosclerotic heart disease of native coronary artery without angina pectoris; I13.2 Hypertensive heart and chronic kidney disease with heart failure and with stage 5 chronic kidney disease, or end stage renal disease; E11.22 Type 2 diabetes mellitus with diabetic chronic kidney disease; I50.32 Chronic diastolic (congestive) heart failure; N18.6 End stage renal disease; E78.5 Hyperlipidemia, unspecified; Z86.73 Personal history of transient ischemic attack (TIA), and cerebral infarction without residual deficits; Z89.511 Acquired absence of right leg below knee; Z79.899 Other long term (current) drug therapy
CPT/HCPCS: 12345; 80053; 80307; 83690; 85025; 93005; 99284

== ENCOUNTER 2020-05-05 20:20 | Emergency (ER) | payer MEDICARE, MEDICAID, SELFPAY ==
[2020-05-05 20:40] VITALS: BP 102/70; PULSE 75; RESP 14; TEMP 37; O2SAT 97; BMI 32.9
[2020-05-05 20:55] VITALS: BP 101/71; PULSE 77; RESP 16; O2SAT 99
--- NOTE | 2020-05-05 20:57 | ED_ITS ---
HPI - Nausea/Vomiting/Diarrhea General: Chief complaint: Nausea/Vomiting/Diarrhea Stated complaint: unable to keep ANYTHING down 4-5 days Time Seen by Provider: 05/05/20 20:54 Source: patient Mode of arrival: ambulatory Limitations: no limitations History of Present Illness: HPI Narrative: 55-year-old female history of end- stage renal disease well-known to the ER states she been having nausea and vomiting over the last 4 to 5 days. She states Zofran is not helping. She states she is having abdominal cramping pain as well. Denies any fever. Denies any worsening improving factors. MD elicited complaint: nausea and vomiting Associated nausea: Yes Associated symtoms: Reports nausea; Denies chest pain, dysuria or headache(s) Review of Systems Const: Denies: fever(s), chills, body aches or change in appetite Eyes: Denies: blurry vision or eye discomfort ENMT: Denies: throat pain or dental pain Card: Denies: chest pain Resp: Denies: dyspnea GI: Reports: abdominal pain, nausea and vomiting : Denies: dysuria Musc: Denies: neck pain or back pain Skin/Breast: Denies: rash Neuro: Denies: headache(s) Psych: Denies: depression Ref[place]/Lymph: Denies: easy bruising All/Imm: Denies: urticaria PFSH ED PFSH: Medical History Anxiety CAD (coronary artery disease) Chronic diastolic CHF (congestive heart failure) Compensated currently Chronic kidney disease, stage V Claustrophobia Depression Diabetes Insulin-dependent End stage renal disease ESRD (end stage renal disease) Gastroparesis GERD (gastroesophageal reflux disease) HTN (hypertension) Hyperlipidemia Hypothyroidism Partial nontraumatic amputation of left foot (~06/2019) Peripheral vascular disease TIA (transient ischemic attack) Vitamin D deficiency Surgical History History of appendectomy History of heart artery stent History of hysterectomy History of left heart catheterization History of right below knee amputation Peritoneal dialysis catheter in place S/P cholecystectomy S/P PICC central line placement Status post amputation of toe Family History Denies family history of CAD (coronary artery disease) Clotting disorder Dementia Bleeding disorder Social History Smoking and tobacco status: never smoked Alcohol intake: never Household members: spouse and family History of recent travel: No Physical Exam Const: COMMON NORMALS: no acute distress, patient oriented x3 and healthy appearing HENMT: COMMON NORMALS: normocephalic and atraumatic HEAD & SCALP: normocephalic and atraumatic Eye: COMMON NORMALS: Equal, round and reactive pupils present and EOMs intact bilaterally PUPIL: Yes Equal, round and reactive pupils present Neck/C-Spine: COMMON NORMALS: full ROM and supple Chest: COMMONS NORMALS: normal inspection of the chest and normal palpation of entire chest wall Resp: COMMON NORMALS: normal respiratory effort, No retractions, No use of accessory muscles and clear to auscultation bilaterally AUSCULTATION: clear to auscultation bilaterally Cardio: COMMON NORMALS: regular rate, regular rhythm and No murmurs present (Cardio) RATE: regular rate RHYTHM: regular rhythm GI: COMMON NORMALS: Normal to inspection, nondistended, normoactive bowel sounds present, Soft to palpation, non-tender and no masses PALPATION: Yes Soft to palpation Extremity: COMMON NORMALS: normal to inspection and full ROM Neuro: COMMON NORMALS: patient oriented x3, moves all extremities and no focal motor deficits Psych: COMMON NORMALS: mental status grossly normal, Normal thought process present and cooperative THOUGHT PROCESS: Normal thought process present Skin: COMMON NORMALS: no rashes or lesions noted and no wounds GENERAL SKIN EXAM: no rashes or lesions noted Course Vital Signs: Vital signs: Vital Signs Temperature 98.6 F 05/05/20 20:40 Pulse Rate 83 05/05/20 22:22 Respiratory Rate 15 05/05/20 22:22 Blood Pressure 151/71 05/05/20 22:22 Pulse Oximetry 98 05/05/20 22:22 MDM - Nausea/Vomiting/Diarrhea MDM Narrative: Medical decision making narrative: Rizwana presents here with vomiting that is likely viral related. She also has acute cystitis likely causing her abdominal cramping. We will start her on Keflex along with Reglan. Blood work here shows no acute changes. Her abdominal exam at discharge is benign and she is stable for discharge. She is to follow-up with PCP and return if worsening. Lab Data: Labs: Lab Results 05/05/20 05/05/20 05/05/20 Range/Units 21:30 21:30 23:08 WBC 8.5 (4.0-10.0) 10^3/ uL RBC 3.62 L (4.1-5.3) 10^6/u L Hgb 11.7 (11.5-15.3) g/dL Hct 35.5 L (37.0-47.0) % MCV 98.1 (81-99) fL MCH 32.3 (28.0-34.0) pg MCHC 33.0 (30.0-36.0) g/dL RDW 13.2 (12.1-15.1) % Plt Count 274 (130-400) 10^3/c mm MPV 11.5 H (7.4-10.4) fL Neut % (Auto) 73.7 % Lymph % (Auto) 17.3 % [place] % (Auto) 5.0 % Eos % (Auto) 2.8 % Baso % (Auto) 0.7 % Neut # (Auto) 6.24 (1.8-7.7) 10^3/u L Lymph # (Auto) 1.5 (0.8-4.8) 10^3/u L [place] # (Auto) 0.4 (0.2-0.9) 10^3/u L Eos # (Auto) 0.2 (0.0-0.8) 10^3/u L Baso # (Auto) 0.1 (0.0-0.1) 10^3/u L Nucleated RBC % (a uto) 0 % Nucleated RBCs # 0.0 /100WBC Sodium 134 L (136-145) mmol/L Potassium 4.1 (3.5-5.1) mmol/L Chloride 92 L (98-107) mmol/L Carbon Dioxide 28 (22-29) mmol/L Anion Gap 18.1 (5-19) BUN 38 H (6-20) mg/dL Creatinine 7.7 H* (0.5-0.9) mg/dL GFR Calculation 5.4 L (90-130) mL/min Glucose 194 H (65-115) mg/dL Calculated Osmolal ity 292 (285-295) mOsm/k g Calcium 10.3 (8.5-10.5) mg/dL Total Bilirubin 0.4 (0.15-1.2) mg/dL AST 20 (0-32) U/L ALT 7 (0-33) U/L Alkaline Phosphata se 120 H (35-105) IU/L Total Protein 7.7 (6.6-8.7) g/dL Albumin 3.7 (3.5-5.2) g/dL Globulin 4.0 (1.3-4.6) g/dL Lipase 63 H (13-60) U/L Urine Color Yellow (Yellow) Urine Appearance Sl cloudy A (CLEAR) Urine pH 5 (5-7) Ur Specific Gravit y 1.015 (1.005-1.030) Urine Protein 3+ H (Negative) Urine Glucose (UA) 2+ (Normal) Urine Ketones Negative (Negative) Urine Blood 2+ H (Negative) Urine Nitrate Negative (Negative) Urine Bilirubin 1+ H (Negative) Urine Urobilinogen Norm (Negative) mg/dL Ur Leukocyte Yara ase 2+ H (Negative) Amorphous Sediment Not Reportable Imaging Data^: CT Abd/Pel: Radiologist's impression: [address] [address] [address] Scan Report Signed Patient: Rizwana Herzog Unit #: [id number] : 1965 Age/Sex: 55 / F ADM Date: 05/05/20 Loc: ER Room/Bed: Attending Dr: Ordering Provider/Ordering MD: Carlos A Jeronimo MD Date of Service: 05/05/20 Procedure(s): CT abdomen pelvis con [id number] Accession Number(s): [id number] Report Number: [id number] PROCEDURE INFORMATION: Exam: CT Abdomen And Pelvis Without Contrast Exam date and time: 05/05/2020 10:37 PM Age: 55 years old Clinical indication: Nausea and vomiting; Prior surgery; Surgery date: 6+ months; Surgery type: Appy, hyst, gb, perit. Dialysis cath; Patient HX: C/O n/v abd cramping x 4-5 days; Additional info: Abd pain TECHNIQUE: Imaging protocol: Computed tomography of the abdomen and pelvis without contrast. Radiation optimization: All CT scans at this facility use at least one of these dose optimization techniques: automated exposure control; mA and/or kV adjustment per patient size (includes targeted exams where dose is matched to clinical indication); or iterative reconstruction. COMPARISON: CT abdomen pelvis w con* [id number] 04/23/2020 11:36 PM RADIATION DOSE METRICS: Total DLP (mGy-cm): 1459.34 FINDINGS: Tubes, catheters and devices: An apparent percutaneous peritoneal dialysis catheter is again seen extending into the pelvis. Lungs: Mild probable atelectasis right lung, improved in the interval. Pneumonitis not entirely excluded. No pleural fluid. Mediastinal space: Suspect a small hiatal hernia. There may be some mucosal/wall thickening involving the lower esophagus. This is nonspecific, but could represent evidence for esophagitisPlease correlate clinically. Liver: Unremarkable. Gallbladder and bile ducts: Prior cholecystectomy, no significant biliary tree dilation. Pancreas: Unremarkable. Spleen: Unremarkable. Adrenal glands: Unremarkable. Kidneys and ureters: Small and mildly atrophic appearing kidneys. No hydronephrosis of either kidney. No visible ureteral calculus. Stomach and bowel: There are no CT findings to strongly suggest diverticulitis. Appendix: The appendix is not identified with certainty, however no pericecal inflammatory changes are seen. Intraperitoneal space: Moderate to large amount of peritoneal fluid/ascites, similar to the prior exam. No free intraperitoneal air, or significant bowel distention. Vasculature: Prominent vascular calcifications are noted, including coronary artery calcifications. No evidence for abdominal aortic aneurysm. Lymph nodes: No retroperitoneal adenopathy. Urinary bladder: Suspect moderate diffuse urinary bladder wall thickening. Evaluation is somewhat limited, as the bladder is not well distended. While nonspecific, this could indicate evidence for cystitis. Please correlate clinically. Reproductive: Apparent prior hysterectomy. No definite ovarian/adnexal cyst or mass by CT. Bones/joints: No significant acute finding. Soft tissues: Small umbilical hernia, containing some fluid, no bowel. CT/CT abdomen pelvis wo con [id number] IMPRESSION: 1. No free air or significant bowel distention. No evidence for bowel obstruction. 2. Moderate to large amount of peritoneal fluid/ascites, similar to the prior exam. 3. Suspected urinary bladder wall thickening, possibly secondary to cystitis. 4. Suspect a small hiatal hernia. Possibly some thickening of the lower esophagus, see above discussion. 5. Other findings discussed above. Discharge Plan Discharge Patient Disposition: Home Clinical Impression: Vomiting, Acute cystitis Condition: Stable Prescriptions: New ondansetron 4 mg tablet,disintegrating 4 mg PO Q6H PRN (Reason: nausea and vomiting) Qty: 14 RF: 0 Reglan 10 mg tablet 10 mg PO Q6H PRN (Reason: nausea and vomiting) Qty: 20 RF: 0 Keflex 500 mg capsule 500 mg PO Q6H 7 Days Qty: 28 RF: 0 No Action nitroglycerin 0.4 mg tablet, sublingual 0.4 mg SUBLINGUAL Q5M PRN (Reason: Chest Pain) Qty: 25 RF: 6 levothyroxine 112 mcg tablet 224 mcg PO DAILY Qty: 30 RF: 3 atorvastatin 40 mg tablet 40 mg PO DAILY Qty: 30 RF: 5 (DME) dietary service aide sock See Rx Instructions .Route .MEDSUPPLY Qty: 1 RF: 0 aspirin 81 mg Tablet,Chewable 81 mg PO DAILY RF: 0 Auryxia 210 mg iron tablet See Rx Instructions .ROUTE .COMPLEX RF: 0 pantoprazole 40 mg tablet,delayed release (DR/EC) 40 mg PO DAILY RF: 0 Rocklatan 0.02-0.005 % Drops 1 drp OPHTHALMIC (EYE) BEDTIME RF: 0 sennosides-docusate sodium 8.6-50 mg tablet 1 tab PO DAILY RF: 0 Lantus Solostar U-100 Insulin 100 unit/mL (3 mL) insulin pen 50 unit SUBCUT BID RF: 0 sevelamer carbonate 800 mg tablet 800 mg PO TID RF: 0 clopidogrel 75 mg tablet 37.5 mg PO DAILY RF: 0 multivitamin [Multiple Vitamins] Tablet 1 tab PO DAILY RF: 0 paricalcitol [Zemplar] 1 mcg capsule See Rx Instructions .ROUTE .COMPLEX RF: 0 coenzyme Q10 [CoQ-10] 100 mg Capsule 100 mg PO DAILY RF: 0 cholecalciferol (vitamin D3) [Vitamin D3] 25 mcg (1,000 unit) Tablet,Chewable 25 mcg PO DAILY RF: 0 omega 2-lrn-qvu-fish oil [Fish Oil] 300-1,000 mg Capsule,Delayed Release(Dr/Ec ) 1 cap PO DAILY RF: 0 brimonidine 0.2 % drops See Rx Instructions .ROUTE .COMPLEX RF: 0 dorzolamide-timolol 22.3-6.8 mg/mL drops See Rx Instructions .ROUTE .COMPLEX RF: 0 meclizine 25 mg Tablet 25 mg PO TID Qty: 42 RF: 0 Discharge Orders: Discharge Order (Routine); Ordered 05/05/20 Ordered By: Carlos A Jeronimo Referrals: Yovany Leonardo MD [Primary Care Provider] - 1-3 days Discharge Diet: Advance as tolerated Discharge Activity: Resume usual activity Patient Instructions: Acute Nausea and Vomiting (ED) Coding Level of Care Code ED Personnel Officer for [facility] Fwd Exam Comprehensive
[2020-05-05 21:38] LABS: Basophils # 0.1 10^3/uL (0.0-0.1); Basophils % 0.7 %; Eosinophils # 0.2 10^3/uL (0.0-0.8); Eosinophils % 2.8 %; Hematocrit 35.5 % (37.0-47.0); Hemoglobin 11.7 g/dL (11.5-15.3); Lymphocytes # 1.5 10^3/uL (0.8-4.8); Lymphocytes % 17.3 %; Mean Corpuscular Hemoglobin 32.3 pg (28.0-34.0); Mean Corpuscular Volume 98.1 fL (81-99); Mean Platelet Volume 11.5 fL (7.4-10.4); Monocytes # 0.4 10^3/uL (0.2-0.9); Neutrophils # 6.24 10^3/uL (1.8-7.7); Neutrophils % 73.7 %; Nucleated Red Blood Cells % 0 %; Platelet Count 274 10^3/cmm (130-400); Red Blood Count 3.62 10^6/uL (4.1-5.3); Red Cell Distribution Width 13.2 % (12.1-15.1); White Blood Count 8.5 10^3/uL (4.0-10.0)
[2020-05-05] MEDS: metoclopramide 5 mg/mL SDV 2 mL 10 MG IVP (21:48)
[2020-05-05] MEDS: diphenhydrAMINE 50 mg/mL SDV 1mL IVP (21:48)
[2020-05-05 21:52] LABS: Alanine Aminotransferase 7 U/L (0-33); Albumin Level 3.7 g/dL (3.5-5.2); Alkaline Phosphatase 120 IU/L (35-105); Anion Gap 18.1 (5-19); Aspartate Amino Transferase 20 U/L (0-32); Blood Urea Nitrogen 38 mg/dL (6-20); Calcium 10.3 mg/dL (8.5-10.5); Carbon Dioxide 28 mmol/L (22-29); Chloride 92 mmol/L (98-107); Glomerular Filtration Rate 5.4 mL/min (90-130); Glucose 194 mg/dL (65-115); Lipase 63 U/L (13-60); Osmolality Calculated 292 mOsm/kg (285-295); Potassium 4.1 mmol/L (3.5-5.1); Sodium 134 mmol/L (136-145); Total Bilirubin 0.4 mg/dL (0.15-1.2); Total Protein 7.7 g/dL (6.6-8.7)
--- NOTE | 2020-05-05 22:02 | CTR_ITS ---
PROCEDURE INFORMATION: Exam: CT Abdomen And Pelvis Without Contrast Exam date and time: 05/05/2020 10:37 PM Age: 55 years old Clinical indication: Nausea and vomiting; Prior surgery; Surgery date: 6+ months; Surgery type: Appy, hyst, gb, perit. Dialysis cath; Patient HX: C/O n/v abd cramping x 4-5 days; Additional info: Abd pain TECHNIQUE: Imaging protocol: Computed tomography of the abdomen and pelvis without contrast. Radiation optimization: All CT scans at this facility use at least one of these dose optimization techniques: automated exposure control; mA and/or kV adjustment per patient size (includes targeted exams where dose is matched to clinical indication); or iterative reconstruction. COMPARISON: CT abdomen pelvis w con* [id number] 04/23/2020 11:36 PM RADIATION DOSE METRICS: Total DLP (mGy-cm): 1459.34 FINDINGS: Tubes, catheters and devices: An apparent percutaneous peritoneal dialysis catheter is again seen extending into the pelvis. Lungs: Mild probable atelectasis right lung, improved in the interval. Pneumonitis not entirely excluded. No pleural fluid. Mediastinal space: Suspect a small hiatal hernia. There may be some mucosal/wall thickening involving the lower esophagus. This is nonspecific, but could represent evidence for esophagitisPlease correlate clinically. Liver: Unremarkable. Gallbladder and bile ducts: Prior cholecystectomy, no significant biliary tree dilation. Pancreas: Unremarkable. Spleen: Unremarkable. Adrenal glands: Unremarkable. Kidneys and ureters: Small and mildly atrophic appearing kidneys. No hydronephrosis of either kidney. No visible ureteral calculus. Stomach and bowel: There are no CT findings to strongly suggest diverticulitis. Appendix: The appendix is not identified with certainty, however no pericecal inflammatory changes are seen. Intraperitoneal space: Moderate to large amount of peritoneal fluid/ascites, similar to the prior exam. No free intraperitoneal air, or significant bowel distention. Vasculature: Prominent vascular calcifications are noted, including coronary artery calcifications. No evidence for abdominal aortic aneurysm. Lymph nodes: No retroperitoneal adenopathy. Urinary bladder: Suspect moderate diffuse urinary bladder wall thickening. Evaluation is somewhat limited, as the bladder is not well distended. While nonspecific, this could indicate evidence for cystitis. Please correlate clinically. Reproductive: Apparent prior hysterectomy. No definite ovarian/adnexal cyst or mass by CT. Bones/joints: No significant acute finding. Soft tissues: Small umbilical hernia, containing some fluid, no bowel. CT/CT abdomen pelvis wo con [id number] IMPRESSION: 1. No free air or significant bowel distention. No evidence for bowel obstruction. 2. Moderate to large amount of peritoneal fluid/ascites, similar to the prior exam. 3. Suspected urinary bladder wall thickening, possibly secondary to cystitis. 4. Suspect a small hiatal hernia. Possibly some thickening of the lower esophagus, see above discussion. 5. Other findings discussed above. Radiation Dose CTDIVOL = (mGy): DLP = 1459.34 (mGy-cm)
[2020-05-05] MEDS: LORazepam 2 mg/mL INJ 1 mL 0.5 MG IM (22:19)
[2020-05-05 22:22] VITALS: BP 151/71; PULSE 83; RESP 15; O2SAT 98
[2020-05-05 23:35] LABS: Urine Color Yellow (Yellow)
[2020-05-05 23:36] LABS: Bilirubin Urine 1+ (Negative); Blood Urine 2+ (Negative); Glucose Urine UA 2+ (Normal); Ketones Urine Negative (Negative); Leukocyte Esterase Urine 2+ (Negative); Nitrate Urine Negative (Negative); Protein Urine 3+ (Negative); Specific Gravity, Urine 1.015 (1.005-1.030); Urobilinogen Urine Norm (Negative); pH Urine 5 (5-7)
[2020-05-05 23:49] VITALS: BP 97/76; PULSE 79; RESP 17; O2SAT 93
[2020-05-06 00:28] LABS: Add Urine Culture? Yes; Bacteria Urine 4+ /hpf; Other Sediment, Urine BUD YEAST W/HYPHAE; Sperm Urine 4+ /hpf; Squamous Epithelial Cell Urine TOO NUMEROUS TO CNT /hpf (0-5); WBC Urine TOO NUMEROUS TO CNT /hpf (0-5)
== END 2020-05-05 23:49 | disposition home or self-care (01) ==
PROVIDERS: Physician Assistant; Emergency Provider Emergency Medicine; PCP Internal Medicine
DX: N30.00 Acute cystitis without hematuria (principal); Z79.82 Long term (current) use of aspirin; Z79.02 Long term (current) use of antithrombotics/antiplatelets; I13.2 Hypertensive heart and chronic kidney disease with heart failure and with stage 5 chronic kidney disease, or end stage renal disease; E11.22 Type 2 diabetes mellitus with diabetic chronic kidney disease; N18.6 End stage renal disease; I50.32 Chronic diastolic (congestive) heart failure; I25.10 Atherosclerotic heart disease of native coronary artery without angina pectoris; E78.5 Hyperlipidemia, unspecified; Z86.73 Personal history of transient ischemic attack (TIA), and cerebral infarction without residual deficits; Z79.4 Long term (current) use of insulin
CPT/HCPCS: 12345; 74176; 80053; 81001; 83690; 85025; 87086; 96372; 96374; 96375; 99282; 99283; J1200; J2060; J2765

== ENCOUNTER 2020-05-07 06:00 | Outpatient (RCR) | payer MEDICARE, MEDICAID, SELFPAY | END 2020-06-06 23:59 | disposition home or self-care (01) | LOC: SPT 06:00 | PROVIDERS: PCP Internal Medicine; Referring Provider Internal Medicine; Visit Provider Internal Medicine | DX: R29.6 Repeated falls (principal); Z89.511 Acquired absence of right leg below knee | CPT/HCPCS: 90832 ==

== ENCOUNTER 2020-05-13 20:39 | Observation (INO) | payer MEDICARE, MEDICAID, SELFPAY ==
[2020-05-13 20:44] VITALS: BP 139/86; PULSE 77; RESP 18; TEMP 36.6; O2SAT 99; BMI 34.6
--- NOTE | 2020-05-13 21:56 | ED_ITS ---
HPI - Nausea/Vomiting/Diarrhea General: Chief complaint: Nausea/Vomiting/Diarrhea Stated complaint: n/v Time Seen by Provider: 05/13/20 21:55 History of Present Illness: HPI Narrative: Patient is a 55-year-old female comes to the ED with nausea, vomiting and abdominal pain. Past medical history of diabetes, BPPV, sleep apnea, end-stage renal disease, CAD, GERD, hypertension, hyperlipidemia, CHF and peripheral vascular disease. Patient has peritoneal dialysis catheter in place and right below-knee amputation. Of left foot in June 2019. Patient has been seen here in the ED for same complaint on April 23 and . She was diagnosed with acute cystitis and was sent home with Keflex and Reglan for nausea. Patient says she has been taking her Keflex and her abdominal pain was improving, but over the past 3 days its gotten worse. She says that Reglan was giving her side effects such as paranoia so she stopped taking it. Her nausea and vomiting have not improved with oral Zofran. She has vomited multiple times today and is constantly nauseous. Abdominal pain is in left upper quadrant and she rates it a 10 out of 10. She did state abdominal pain. Has improved since she started taking the Keflex. Associated nausea: Yes Associated symtoms: Reports fatigue and nausea; Denies change in vision, chest pain, dysuria, headache(s) or palpitations Review of Systems Const: Reports: fatigue; Denies: fever(s) or chills Eyes: Denies: change in vision or eye discomfort ENMT: Denies: throat pain, odynophagia, nasal discharge or nasal congestion Card: Denies: chest pain, palpitations, edema, swelling of feet/ankles, dyspnea on exertion or orthopnea Resp: Denies: dyspnea, productive cough or non-productive cough GI: Reports: abdominal pain (Left upper Quadrant), nausea and vomiting; Denies: diarrhea, constipation or hematochezia : Denies: flank pain, dysuria or hematuria Musc: Denies: neck pain, back pain or extremity swelling Skin/Breast: Denies: rash or new lesions Neuro: Denies: headache(s), numbness in extremities or weakness in extremities PFS ED PFSH: Medical History Anxiety CAD (coronary artery disease) Chronic diastolic CHF (congestive heart failure) Compensated currently Chronic kidney disease, stage V Claustrophobia Depression Diabetes Insulin-dependent End stage renal disease ESRD (end stage renal disease) Gastroparesis GERD (gastroesophageal reflux disease) HTN (hypertension) Hyperlipidemia Hypothyroidism Partial nontraumatic amputation of left foot (~06/2019) Peripheral vascular disease TIA (transient ischemic attack) Vitamin D deficiency Surgical History History of appendectomy History of heart artery stent History of hysterectomy History of left heart catheterization History of right below knee amputation Peritoneal dialysis catheter in place S/P cholecystectomy S/P PICC central line placement Status post amputation of toe Family History Denies family history of CAD (coronary artery disease) Clotting disorder Dementia Bleeding disorder Social History Smoking and tobacco status: never smoked Alcohol intake: never Household members: spouse and family History of recent travel: No Physical Exam Const: COMMON NORMALS: patient oriented x3 and alert GENERAL APPEARANCE: cooperative, comfortable, lethargic and ill appearing NUTRITIONAL APPEARANCE: overweight ORIENTATION/CONSCIOUSNESS: Yes lethargic HENMT: COMMON NORMALS: normocephalic HEAD & SCALP: normocephalic MOUTH: moist mucous membranes abnormal (mild to mod dehydration) Details: parched THROAT: posterior oropharynx normal and uvula midline Eye: COMMON NORMALS: Equal, round and reactive pupils present PUPIL: Yes Equal, round and reactive pupils present Neck/C-Spine: COMMON NORMALS: supple GENERAL: Yes normal visual inspection Resp: COMMON NORMALS: normal respiratory effort, No retractions, No use of accessory muscles and clear to auscultation bilaterally AUSCULTATION: clear to auscultation bilaterally Cardio: COMMON NORMALS: regular rate, regular rhythm, S1 normal heart sound present, S2 normal heart sound present, No gallops present (Cardio), No clicks present (Cardio), No murmurs present (Cardio) and Peripheral pulses 2+ throughout RATE: regular rate RHYTHM: regular rhythm HEART SOUNDS: S1 normal heart sound present and S2 normal heart sound present PERIPHERAL PULSES: Peripheral pulses 2+ throughout GI: COMMON NORMALS: Normal to inspection, nondistended, normoactive bowel sounds present, Soft to palpation, non-tender and no masses INSPECTION: Yes central obesity and Yes other (Peritoneal dialysis catheter in place and abdomen. No signs of any infecti) PALPATION: Yes Soft to palpation and Yes Tenderness to palpation present (GI) Details: LUQ : COMMON NORMALS: Yes no CVA tenderness BLADDER/KIDNEY EXAM: Yes no CVA tenderness Back/Pelvis: COMMON NORMALS: no CVA tenderness Extremity: GENERAL: Yes normal exam except as noted and Yes amputation (Left foot amputated.) Neuro: COMMON NORMALS: patient oriented x3 and moves all extremities SENSORIUM/ORIENTATION: Yes alert and Yes lethargic Skin: GENERAL SKIN EXAM: dry skin Course ED course: I talked with Dr. Mix about patient having intractable nausea and vomiting and abdominal pain. I told her that she has been hearing 3 times for same complaint within the last 3 weeks. He recommended a call Dr. Burdick to have patient be admitted. Reevaluation(s): Reevaluation #1: Patient is thrown up multiple times here in the ED even after getting IV Zofran. Emesis has coffee ground appearance Consultations: Consultation #1: I contacted the hospitalist district loss prevention manager to discuss patient case. due to her intractable nausea and vomiting this being her third visit to the ED for same complaint I thought she would be a good candidate to be admitted. Dr. Burdick agreed and wants to place patient on observations. Time: 02:47 Vital Signs: Vital signs: Vital Signs Temperature 97.9 F 05/13/20 20:44 Pulse Rate 78 05/14/20 02:21 Respiratory Rate 14 05/14/20 02:21 Blood Pressure 145/103 05/14/20 02:20 Pulse Oximetry 96 05/14/20 02:20 MDM - Nausea/Vomiting/Diarrhea MDM Narrative: Medical decision making narrative: Patient is a 55-year-old female comes to the ED with nausea, vomiting and abdominal pain. This is the third time patient has been seen here in the ED for same complaint over the past 3 weeks. Patient shot was given IV Zofran while here in the ED and she has had multiple episodes of emesis and appears ill and dehydrated. Emesis has coffee- ground appearance. Labs are unremarkable and CT of the abdomen showed no acute findings. I discussed patient case with Dr. Mix and due to her intractable nausea and vomiting and and coffee-ground emesis he recommended I contact hospitalist for patient to be placed on observation. Contacted Dr. Burdick and told him about patient case. He agreed to have patient put on observation. Lab Data: Attestation: I reviewed the patient's lab results. Labs: Lab Results 05/13/20 05/13/20 05/13/20 Range/Units 22:33 22:33 22:33 WBC 9.7 (4.0-10.0) 10^3/ uL RBC 3.42 L (4.1-5.3) 10^6/u L Hgb 10.9 L (11.5-15.3) g/dL Hct 32.7 L (37.0-47.0) % MCV 95.6 (81-99) fL MCH 31.9 (28.0-34.0) pg MCHC 33.3 (30.0-36.0) g/dL RDW 13.2 (12.1-15.1) % Plt Count 183 (130-400) 10^3/c mm MPV 12.1 H (7.4-10.4) fL Neut % (Auto) 86.5 % Lymph % (Auto) 8.2 % [place] % (Auto) 3.8 % Eos % (Auto) 0.7 % Baso % (Auto) 0.5 % Neut # (Auto) 8.40 H (1.8-7.7) 10^3/u L Lymph # (Auto) 0.8 (0.8-4.8) 10^3/u L [place] # (Auto) 0.4 (0.2-0.9) 10^3/u L Eos # (Auto) 0.1 (0.0-0.8) 10^3/u L Baso # (Auto) 0.1 (0.0-0.1) 10^3/u L Nucleated RBC % (a uto) 0 % Nucleated RBCs # 0.0 /100WBC Sodium 134 L (136-145) mmol/L Potassium 3.6 (3.5-5.1) mmol/L Chloride 92 L (98-107) mmol/L Carbon Dioxide 25 (22-29) mmol/L Anion Gap 20.6 H (5-19) BUN 34 H (6-20) mg/dL Creatinine 6.3 H* (0.5-0.9) mg/dL GFR Calculation 6.9 L (90-130) mL/min Glucose 201 H (65-115) mg/dL Calculated Osmolal ity 291 (285-295) mOsm/k g Calcium 10.7 H (8.5-10.5) mg/dL Total Bilirubin 0.4 (0.15-1.2) mg/dL AST 12 (0-32) U/L ALT 12 (0-33) U/L Alkaline Phosphata se 99 (35-105) IU/L Total Protein 7.4 (6.6-8.7) g/dL Albumin 3.6 (3.5-5.2) g/dL Globulin 3.8 (1.3-4.6) g/dL Lipase 45 (13-60) U/L HCG, Qual Negative (Negative) Urine Color (Yellow) Urine Appearance (CLEAR) Urine pH (5-7) Ur Specific Gravit y (1.005-1.030) Urine Protein (Negative) Urine Glucose (UA) (Normal) Urine Ketones (Negative) Urine Blood (Negative) Urine Nitrate (Negative) Urine Bilirubin (Negative) Urine Urobilinogen (Negative) mg/dL Ur Leukocyte Yara ase (Negative) Urine RBC (0-2) /hpf Urine WBC (0-5) /hpf Ur Squamous Epith Cells (0-5) /hpf Amorphous Sediment Urine Bacteria (NONE) /hpf 05/14/20 Range/Units 00:50 WBC (4.0-10.0) 10^3/ uL RBC (4.1-5.3) 10^6/u L Hgb (11.5-15.3) g/dL Hct (37.0-47.0) % MCV (81-99) fL MCH (28.0-34.0) pg MCHC (30.0-36.0) g/dL RDW (12.1-15.1) % Plt Count (130-400) 10^3/c mm MPV (7.4-10.4) fL Neut % (Auto) % Lymph % (Auto) % [place] % (Auto) % Eos % (Auto) % Baso % (Auto) % Neut # (Auto) (1.8-7.7) 10^3/u L Lymph # (Auto) (0.8-4.8) 10^3/u L [place] # (Auto) (0.2-0.9) 10^3/u L Eos # (Auto) (0.0-0.8) 10^3/u L Baso # (Auto) (0.0-0.1) 10^3/u L Nucleated RBC % (a uto) % Nucleated RBCs # /100WBC Sodium (136-145) mmol/L Potassium (3.5-5.1) mmol/L Chloride (98-107) mmol/L Carbon Dioxide (22-29) mmol/L Anion Gap (5-19) BUN (6-20) mg/dL Creatinine (0.5-0.9) mg/dL GFR Calculation (90-130) mL/min Glucose (65-115) mg/dL Calculated Osmolal ity (285-295) mOsm/k g Calcium (8.5-10.5) mg/dL Total Bilirubin (0.15-1.2) mg/dL AST (0-32) U/L ALT (0-33) U/L Alkaline Phosphata se (35-105) IU/L Total Protein (6.6-8.7) g/dL Albumin (3.5-5.2) g/dL Globulin (1.3-4.6) g/dL Lipase (13-60) U/L HCG, Qual (Negative) Urine Color Yellow (Yellow) Urine Appearance Hazy A (CLEAR) Urine pH 8.0 H (5-7) Ur Specific Gravit y 1.010 (1.005-1.030) Urine Protein 3+ H (Negative) Urine Glucose (UA) 4+ H (Normal) Urine Ketones Negative (Negative) Urine Blood 2+ H (Negative) Urine Nitrate Negative (Negative) Urine Bilirubin Neg (Negative) Urine Urobilinogen Norm (Negative) mg/dL Ur Leukocyte Yara ase Trace H (Negative) Urine RBC 0-4 H (0-2) /hpf Urine WBC 5-10 H (0-5) /hpf Ur Squamous Epith Cells 15-25 H (0-5) /hpf Amorphous Sediment Not Reportable Urine Bacteria 1+ H (NONE) /hpf Discharge Plan Discharge Prescriptions: No Action nitroglycerin 0.4 mg tablet, sublingual 0.4 mg SUBLINGUAL Q5M PRN (Reason: Chest Pain) Qty: 25 RF: 6 levothyroxine 112 mcg tablet 224 mcg PO DAILY Qty: 30 RF: 3 atorvastatin 40 mg tablet 40 mg PO DAILY Qty: 30 RF: 5 (DME) piano technician sock See Rx Instructions .Route .MEDSUPPLY Qty: 1 RF: 0 aspirin 81 mg Tablet,Chewable 81 mg PO DAILY RF: 0 Auryxia 210 mg iron tablet See Rx Instructions .ROUTE .COMPLEX RF: 0 pantoprazole 40 mg tablet,delayed release (DR/EC) 40 mg PO DAILY RF: 0 Rocklatan 0.02-0.005 % Drops 1 drp OPHTHALMIC (EYE) BEDTIME RF: 0 sennosides-docusate sodium 8.6-50 mg tablet 1 tab PO DAILY RF: 0 Lantus Solostar U-100 Insulin 100 unit/mL (3 mL) insulin pen 50 unit SUBCUT BID RF: 0 sevelamer carbonate 800 mg tablet 800 mg PO TID RF: 0 clopidogrel 75 mg tablet 37.5 mg PO DAILY RF: 0 multivitamin [Multiple Vitamins] Tablet 1 tab PO DAILY RF: 0 paricalcitol [Zemplar] 1 mcg capsule See Rx Instructions .ROUTE .COMPLEX RF: 0 coenzyme Q10 [CoQ-10] 100 mg Capsule 100 mg PO DAILY RF: 0 cholecalciferol (vitamin D3) [Vitamin D3] 25 mcg (1,000 unit) Tablet,Chewable 25 mcg PO DAILY RF: 0 omega 7-lqk-nfz-fish oil [Fish Oil] 300-1,000 mg Capsule,Delayed Release(Dr/Ec) 1 cap PO DAILY RF: 0 brimonidine 0.2 % drops See Rx Instructions .ROUTE .COMPLEX RF: 0 dorzolamide-timolol 22.3-6.8 mg/mL drops See Rx Instructions .ROUTE .COMPLEX RF: 0 meclizine 25 mg Tablet 25 mg PO TID Qty: 42 RF: 0 ondansetron 4 mg tablet,disintegrating 4 mg PO Q6H PRN (Reason: nausea and vomiting) Qty: 14 RF: 0 Reglan 10 mg tablet 10 mg PO Q6H PRN (Reason: nausea and vomiting) Qty: 20 RF: 0 Coding Level of Care Code ED Spool Cleaner Hand for Chg Fwd Exam Comprehensive
[2020-05-13 22:04] VITALS: BP 163/100; PULSE 77; RESP 15; O2SAT 96
[2020-05-13 22:34] VITALS: PULSE 84; RESP 16; O2SAT 96
[2020-05-13 22:51] LABS: HCG, Serum Qual Negative (Negative)
[2020-05-13 22:53] LABS: Basophils # 0.1 10^3/uL (0.0-0.1); Basophils % 0.5 %; Eosinophils # 0.1 10^3/uL (0.0-0.8); Eosinophils % 0.7 %; Hematocrit 32.7 % (37.0-47.0); Hemoglobin 10.9 g/dL (11.5-15.3); Lymphocytes # 0.8 10^3/uL (0.8-4.8); Lymphocytes % 8.2 %; Mean Corpuscular HGB Conc 33.3 g/dL (30.0-36.0); Mean Corpuscular Hemoglobin 31.9 pg (28.0-34.0); Mean Corpuscular Volume 95.6 fL (81-99); Mean Platelet Volume 12.1 fL (7.4-10.4); Monocytes # 0.4 10^3/uL (0.2-0.9); Monocytes % 3.8 %; Neutrophils % 86.5 %; Nucleated Red Blood Cells % 0 %; Platelet Count 183 10^3/cmm (130-400); Red Blood Count 3.42 10^6/uL (4.1-5.3); Red Cell Distribution Width 13.2 % (12.1-15.1); White Blood Count 9.7 10^3/uL (4.0-10.0)
[2020-05-13 23:02] LABS: Alanine Aminotransferase 12 U/L (0-33); Albumin Level 3.6 g/dL (3.5-5.2); Alkaline Phosphatase 99 IU/L (35-105); Anion Gap 20.6 (5-19); Aspartate Amino Transferase 12 U/L (0-32); Blood Urea Nitrogen 34 mg/dL (6-20); Calcium 10.7 mg/dL (8.5-10.5); Carbon Dioxide 25 mmol/L (22-29); Chloride 92 mmol/L (98-107); Globulin 3.8 g/dL (1.3-4.6); Glomerular Filtration Rate 6.9 mL/min (90-130); Glucose 201 mg/dL (65-115); Lipase 45 U/L (13-60); Osmolality Calculated 291 mOsm/kg (285-295); Potassium 3.6 mmol/L (3.5-5.1); Sodium 134 mmol/L (136-145); Total Bilirubin 0.4 mg/dL (0.15-1.2); Total Protein 7.4 g/dL (6.6-8.7)
[2020-05-13] MEDS: sodium chloride 0.9% 500 ML IV (23:43)
[2020-05-13 23:44] VITALS: BP 145/75; PULSE 78; RESP 16; RESP 17; O2SAT 95; O2SAT 98
[2020-05-13] MEDS: morphine 4 mg/mL SDV 1 mL IVP (23:44)
[2020-05-13] MEDS: ondansetron 2 mg/ML SDV 2 mL 4 MG IVP (23:44)
[2020-05-14] VITALS (13 sets, daily range): BP systolic 100–187; BP diastolic 63–106; PULSE 62–82; RESP 14–18; TEMP 36.5–36.7; O2SAT 90–98
--- NOTE | 2020-05-14 00:53 | CTR_ITS ---
PROCEDURE INFORMATION: Exam: CT Abdomen And Pelvis With Contrast Exam date and time: 05/14/2020 1:03 AM Age: 55 years old Clinical indication: Nausea and vomiting; Prior surgery; Surgery date: 6+ months; Surgery type: Dialysis tube; Additional info: Abdominal pain and uncontrolled n/v TECHNIQUE: Imaging protocol: Computed tomography of the abdomen and pelvis with intravenous contrast. Radiation optimization: All CT scans at this facility use at least one of these dose optimization techniques: automated exposure control; mA and/or kV adjustment per patient size (includes targeted exams where dose is matched to clinical indication); or iterative reconstruction. Contrast material: OMNI 300; Contrast volume: 95 ml; Contrast route: INTRAVENOUS (IV); COMPARISON: CT abdomen pelvis wo con [id number] 05/05/2020 10:35 PM RADIATION DOSE METRICS: Total DLP (mGy-cm): 1491.42 FINDINGS: Tubes, catheters and devices: Peritoneal dialysis catheter is noted with tip coiled in the right lower quadrant. Lungs: Mild patchy atelectasis at bilateral lung bases, more prominent on the right. Liver: Unremarkable. Gallbladder and bile ducts: Status post cholecystectomy. Moderate intrahepatic biliary dilation. The common bile duct is dilated to 1.1 cm. The biliary dilation may be a reaction to absent gallbladder. Pancreas: Unremarkable. Spleen: Unremarkable. Adrenal glands: Unremarkable. Kidneys and ureters: The kidneys are unremarkable. No renal stones identified. No hydronephrosis on either side. Stomach and bowel: No bowel obstruction identified. No diverticulitis identified. Appendix: The appendix is not identified as a separate structure. Intraperitoneal space: No free intraperitoneal air identified. Large amount of free intraperitoneal fluid (especially in the perihepatic region, perisplenic region, right paracolic gutter, and pelvis). This is compatible with dialysate and is generally similar to prior study. Small fluid-filled umbilical hernia, similar to prior study. Vasculature: No abdominal aortic aneurysm. Lymph nodes: Unremarkable. Urinary bladder: Unremarkable as visualized. Reproductive: The uterus is not seen and is presumed surgically absent. Bones/joints: Unremarkable. No acute fracture. Soft tissues: Unremarkable. CT/CT abdomen pelvis w con* [id number] IMPRESSION: 1. Large amount of free intraperitoneal fluid, compatible with dialysate, similar to prior study. 2. Additional, nonemergent findings as above. Radiation Dose CTDIVOL = (mGy): DLP = 1491.42 (mGy-cm)
[2020-05-14 01:05] LABS: Blood Urine 2+ (Negative); Glucose Urine UA 4+ (Normal); Ketones Urine Negative (Negative); Nitrate Urine Negative (Negative); Protein Urine 3+ (Negative); Urine Appearance Hazy (CLEAR); Urine Color Yellow (Yellow)
[2020-05-14] MEDS: ondansetron 2 mg/ML SDV 2 mL 4 MG IVP (01:05)
[2020-05-14 01:06] LABS: Add Urine Microscopic? YES; Bacteria Urine 1+ /hpf; Bilirubin Urine Neg (Negative); Leukocyte Esterase Urine Trace (Negative); RBC Urine 0-4 /hpf (0-2); Squamous Epithelial Cell Urine 15-25 /hpf (0-5); Urobilinogen Urine Norm (Negative)
[2020-05-14] MEDS: morphine 4 mg/mL SDV 1 mL 2 MG IVP (01:06)
[2020-05-14 01:07] LABS: Add Urine Culture? No
[2020-05-14] MEDS: iohexol 300 mg/mL 100 mL Btl IV (01:22)
[2020-05-14] MEDS: pantoprazole 40 mg SDV 80 MG IVP (02:41)
--- NOTE | 2020-05-14 02:45 | P.HP_ITS ---
Providers/Chief Complaint Primary Care Provider: Yovany Leonrado MD Chief Complaint: n/v History of Present Illness Rizwana Herzog is a 55 year old female with history of established coronary disease, hypothyroidism, gastroparesis, recurrent nausea vomiting, peritoneal dialysis dependent presented today with chief complaint of intractable nausea vomiting. Patient is stating that after lunch she start experiencing multiple episodes of dry nausea and vomiting, she was not able to keep anything down, and one she only had 2 bites of tuna sandwich, she did not notice any fever, diarrhea, blood in stool, excruciating abdominal pain. At home she tried Reglan without much success. Of note, she had recent suicidal attempt by taking multiple dose of Tylenol and metoprolol, prior to that she was admitted for dizziness which was deemed secondary to BPPV. Her bradycardia improved after holding beta-blockers. Pupillary asymmetry was noticed on admission, MRI brain was obtained to exclude CVA, no remarkable findings were noticed ICA stenosis was less than 50% on right which is chronic. Intraocular pressure 24 on the left 18mmhg on right. Diagnosis in the ER revealed normal CBC, BMP CT abdomen did not reveal any acute pathologies, patient did not improve after getting antiemetics in the ER hence a decision was made to admit her overnight for control of her emesis. Her last content of emesis was coffee-ground in the ER at home she did not notice such finding. Review of Systems Const: Reports: chills, change in appetite, fatigue and malaise; Denies: fever(s) Eyes: Reports: blurry vision ENMT: Denies: throat pain Card: Denies: chest pain Resp: Denies: dyspnea GI: Reports: abdominal pain, nausea and vomiting; Denies: diarrhea or constipation : Denies: flank pain Musc: Denies: neck pain Skin/Breast: Denies: rash Neuro: Denies: headache(s) Psych: Reports: anxiety, depression, mood swings and irritability; Denies: loss of interest or memory loss Endo: Denies: polyuria [place]ugoi/Lymph: Denies: easy bruising All/Imm: Denies: urticaria Medications/Allergies Home Medications Medication Instructions Recorded Confirmed Last Taken Type aspirin 81 mg PO DAILY 06/25/19 05/01/20 04/28/20 History multivitamin [Multiple Vitamins] 1 tab PO DAILY 06/30/19 05/01/20 04/28/20 History paricalcitol [Zemplar] See Rx Instructions .ROUTE .COMPLEX 06/30/19 05/01/20 1 06/28/19 History ferric citrate 210 mg iron tablet See Rx Instructions .ROUTE 09/06/19 05/01/20 04/28/20 History .COMPLEX tab levothyroxine 112 mcg tablet 224 mcg PO DAILY #30 tab 12/11/19 05/01/20 04/28/20 Rx cholecalciferol (vitamin D3) 25 mcg PO DAILY 01/17/20 05/01/20 04/28/20 History [Vitamin D3] coenzyme Q10 [CoQ-10] 100 mg PO DAILY 01/17/20 05/01/20 04/28/20 History omega 1-isz-adr-fish oil [Fish Oil] 1 cap PO DAILY 01/17/20 05/01/20 04/28/20 History brimonidine See Rx Instructions .ROUTE .COMPLEX 01/31/20 05/01/20 04/28/20 History dorzolamide-timolol See Rx Instructions .ROUTE .COMPLEX 01/31/20 05/01/20 04/28/20 History pantoprazole 40 mg PO DAILY 02/16/20 05/01/20 04/28/20 History nitroglycerin 0.4 mg sublingual 0.4 mg SUBLINGUAL Q5M PRN #25 tab 03/26/20 05/01/20 04/18/20 Rx tablet atorvastatin 40 mg tablet 40 mg PO DAILY #30 tab 03/27/20 05/01/20 04/28/20 Rx Lantus Solostar U-100 Insulin 50 unit SUBCUT BID 04/18/20 05/01/20 04/29/20 His tory Rocklatan 1 drp OPHTHALMIC (EYE) BEDTIME 04/18/20 05/01/20 04/28/20 History sennosides-docusate sodium 1 tab PO DAILY 04/18/20 05/01/20 04/28/20 History meclizine 25 mg PO TID #42 tab 04/24/20 05/01/20 04/28/20 Rx environmental field office manager sock #1 ea 04/24/20 05/01/20 Unknown Rx sevelamer carbonate 800 mg PO TID 04/29/20 05/01/20 Unknown History clopidogrel 37.5 mg PO DAILY 05/01/20 05/01/20 Unknown History metoclopramide HCl [Reglan] 10 mg PO Q6H PRN #20 tab 05/05/20 Unknown Rx ondansetron 4 mg PO Q6H PRN #14 tab 05/05/20 Unknown Rx Allergies Allergy/AdvReac Type Severity Reaction Status Date / Time metformin [From Glucophage] Allergy Severe Unknown Verified 05/01/20 10:38 venlafaxine [From Effexor] Allergy Severe ADR-Shakine Verified 05/01/20 10:38 ss PFSH Acute PFSH: Medical History Anxiety CAD (coronary artery disease) Chronic diastolic CHF (congestive heart failure) Compensated currently Chronic kidney disease, stage V Claustrophobia Depression Diabetes Insulin-dependent End stage renal disease ESRD (end stage renal disease) Gastroparesis GERD (gastroesophageal reflux disease) HTN (hypertension) Hyperlipidemia Hypothyroidism Partial nontraumatic amputation of left foot (~06/2019) Peripheral vascular disease TIA (transient ischemic attack) Vitamin D deficiency Surgical History History of appendectomy History of heart artery stent History of hysterectomy History of left heart catheterization History of right below knee amputation Peritoneal dialysis catheter in place S/P cholecystectomy S/P PICC central line placement Status post amputation of toe Family History Denies family history of CAD (coronary artery disease) Clotting disorder Dementia Bleeding disorder Social History Smoking and tobacco status: never smoked Alcohol intake: never Household members: spouse and family History of recent travel: No Vitals/I&O/Wt Last Vital Signs Temp 97.9 F 05/13/20 20:44 Pulse 78 05/14/20 02:21 Resp 14 05/14/20 02:21 BP 145/103 05/14/20 02:20 Pulse Ox 96 05/14/20 02:20 05/13/20 05/13/20 05/14/20 14:59 22:59 06:59 Intake Total 500 / 500 Balance 500 / 500 Weight last 48 hrs Weight 94.347 kg Physical Exam Narrative: EXAM NARRATIVE: Middle-age female who appears more than stated age Appears to be in distress, clinically looks dehydrated Saturating well on room air S1, S2, sinus rhythm, systolic murmur right second intercostal space 2/6 Abdomen distended, peritoneal dialysis catheter without any signs of drainage, mild tenderness in mid epigastric region otherwise abdomen is soft bowel sound present Lower extremity no edema gangrene or ulcer Right leg below-knee amputation Asymmetrical pupil which are chronic No neurological deficit EOMI, She is awake and alert with irritable mood No acute respiratory distress Lethargic Data : 05/13/20 22:33 05/13/20 22:33 A&P Assessment and plan (1) Intractable nausea and vomiting: Status: Acute (2) Dehydration: Status: Acute (3) DAILY (generalized anxiety disorder): Status: Acute Additional A&P Information Intractable nausea vomiting likely secondary to diabetic gastroparesis Patient has now been evaluated for gastric pacemaker at home she takes Reglan, I would alternate Reglan with Zofran for now No acute source of vomiting has been identified, CBC BMP unremarkable CT abdomen unremarkable No active signs of peritonitis on clinical exam, less likely to be SBP Clinically looks dehydrated Judicious use of fluids Patient does not want nephrology to manage her peritoneal dialysis for now, kindly reevaluate in the morning Generalized anxiety disorder: No suicidal ideation I would continue her anxiolytics and antidepressant Type 2 diabetes last A1c 8.9,, moderate sliding scale Old finding of asymmetrical pupil, neuro work-up was unremarkable Continue glaucoma, ophthalmic drops Full liquid diet advance as tolerated Full code DVT prophylaxis Heparin Attestations Medical Necessity Statement*: Anticipating discharge in less than 48 hours continued IV fluid resuscitation for intractable nausea vomiting, she is not responding to Reglan. She is taking at home, Time Spent in Patient Care: (>than 50% of time spent in counselling and/or direct pt care on unit) . 40mins Coding Level of Care Code Acute Jewelry Drill Operator for Chg Fwd Diagnoses Intractable nausea and vomiting R11.2 Dehydration E86.0 DAILY (generalized anxiety disorder) F41.1
[2020-05-14] MEDS: metoclopramide 5 mg/mL SDV 2 mL 10 MG IVP (03:01)
[2020-05-14] MEDS: heparin 5,000 unit/mL INJ 1 mL 5000 UNIT SUBCUT ×3 (05:18→21:35)
[2020-05-14 06:46] LABS: Glucose Point of Care 250 mg/dL (70-110)
[2020-05-14] MEDS: aspirin 81 mg Chew Tablet PO (08:13)
[2020-05-14] MEDS: levothyroxine 112 mcg Tablet 224 MCG PO (08:13)
[2020-05-14] MEDS: escitalopram 10 mg Tablet 20 MG PO (08:13)
[2020-05-14] MEDS: sevelamer 800 mg Tablet PO ×3 (08:13→21:35)
[2020-05-14] MEDS: dorzolamide/timolol Op Soln 10 mL Btl 1 DROP EYE-LEFT ×2 (08:14→18:16)
[2020-05-14] MEDS: insulin glargine 100 units/1 mL 15 UNIT SUBCUT (08:14)
[2020-05-14] MEDS: clopidogrel 75 mg Tablet 37.5 MG PO (08:14)
[2020-05-14] MEDS: pantoprazole 40 mg SDV IVP (08:15)
[2020-05-14] MEDS: brimonidine 0.2% Op Soln 5 mL Btl 1 DROP EYE-LEFT ×2 (08:15→18:16)
--- NOTE | 2020-05-14 09:03 | PC.CHAP ---
Pastoral Care Encounter/Spiritual Assessment Type of Contact [] Declined community health planning director visit [] Patient/Family/Request visit [] Outpatient visit [] Follow-up visit [] Physician referral [] Code/Alert [] Routine visit [] Staff referral [] Actively dying [x] Patient sleeping [] Family support [] [] Out of room [] Palliative care [] [] Receiving care in room [] Pre-surgical visit [] Trauma [] Long length of stay [] ICU visit [] Other: Relational/Emotional Strength [] Patient feels connected with others/family/visitors/staff [] Distress [] Loneliness/isolation [] Abandonment Spirituality of Patient [] Person of Talya [] Attends Baptism of their [place]alya [] Believes in Prayer [] Reads Bible or Episcopalian materials [] There are Spiritual issues to be addressed Audio Visual Secretary Interventions [] Prayer [] Active listening [] Non-anxious presence [] Spiritual/emotional support [] Crisis/trauma care [] Spiritual counseling [] Bereavement support [] Provided bereavement packet [] Provided Bible/devotional materials [] Provided toy/stuffed animal, coloring book to patient or family member [] Provided Communion [] Anointing/[place] [] Salvation [] Completed spiritual assessment [] Other: Impact on Illness or Injury [] Angry [] Fearful [] Anxious [] Often cries [] Exhaustion [] Unable to work [] Unable to attend yazidi [] Unable to walk/stand [] Unable to read [] Unable to drive [] Unable to eat/drink [] Unable to sleep [] Unable to be with family [] Patient intubated [] Other: Summary Time spent with patient
[2020-05-14] MEDS: metoclopramide 5 mg/mL SDV 2 mL IVP ×3 (10:55→21:49)
[2020-05-14 11:01] LABS: Glucose Point of Care 177 mg/dL (70-110)
[2020-05-14 17:18] LABS: Glucose Point of Care 95 mg/dL (70-110)
--- NOTE | 2020-05-14 18:00 | P.PN_ITS ---
Subjective Subjective: Interval history: Still c/o some nausea, 2-3 episoes of vomiting, has not attempted toe at yet, skipped PD today as overall dehydrated Medications: Reviewed: Yes Vitals/I&O/Wt Last Vital Signs Temp 97.9 F 05/15/20 03:47 Pulse 78 05/15/20 03:47 Resp 18 05/15/20 03:47 BP 136/80 05/15/20 03:47 Pulse Ox 90 05/15/20 03:47 05/14/20 05/14/20 05/15/20 14:59 22:59 06:59 Intake Total 480 / 480 120 / 600 Output Total 200 / 200 Balance 480 / 480 -80 / 400 Weight last 48 hrs Weight 94.347 kg Physical Exam Narrative: EXAM NARRATIVE: GEN: Awake, alert and oriented, no acute distress , dehydrated++ CVS: S1S2 N RS: CTA B/L Abd: Soft, nt/nd , bs+ BUILDING SERVICES TECHNICIAN: no focal neuro deficits Data : 05/13/20 22:33 05/13/20 22:33 A&P Assessment and plan (1) Intractable nausea and vomiting: Status: Acute (2) Dehydration: Status: Acute (3) DAILY (generalized anxiety disorder): Status: Acute Additional A&P Information Intractable nausea vomiting likely secondary to diabetic gastroparesis Continue alternating reglan and zofran, vomiting better but nausea persisting, patient has not attempted po intake, encouraged to drink po fluids as clinically still appearing dehydrated, skipped PD today as she felt dehydrated Has not seen GI yet, waitingt o see Dr. Leonardo locally for gatsroparesis CT abdomen unremarkable No active signs of peritonitis on clinical exam, less likely to be SBP Generalized anxiety disorder: No suicidal ideation continue her anxiolytics and antidepressant Type 2 diabetes last A1c 8.9,, moderate sliding scale Old finding of asymmetrical pupil, neuro work-up was unremarkable Continue glaucoma, ophthalmic drops Full liquid diet advance as tolerated Full code DVT prophylaxis Heparin Attestations Medical Necessity Statement*: continued observation for symptom control, encouarged liberal po inatke at this time Coding Level of Care Code Acute Statistical Reporting Analyst for Chg Fwd Diagnoses Intractable nausea and vomiting R11.2 Dehydration E86.0 DAILY (generalized anxiety disorder) F41.1
[2020-05-14 21:47] LABS: Glucose Point of Care 106 mg/dL (70-110)
[2020-05-15] MEDS: heparin 5,000 unit/mL INJ 1 mL 5000 UNIT SUBCUT ×2 (03:18→12:49)
[2020-05-15 03:47] VITALS: BP 136/80; PULSE 78; RESP 18; TEMP 36.6; O2SAT 90
[2020-05-15] MEDS: metoclopramide 5 mg/mL SDV 2 mL IVP ×2 (03:53→10:37)
[2020-05-15 05:17] LABS: Hematocrit 25.7 % (37.0-47.0); Hemoglobin 8.5 g/dL (11.5-15.3)
[2020-05-15 05:37] LABS: Anion Gap 15.8 (5-19); Blood Urea Nitrogen 42 mg/dL (6-20); Calcium 9.3 mg/dL (8.5-10.5); Carbon Dioxide 27 mmol/L (22-29); Chloride 93 mmol/L (98-107); Glomerular Filtration Rate 5.4 mL/min (90-130); Glucose 82 mg/dL (65-115); Osmolality Calculated 284 mOsm/kg (285-295); Potassium 3.8 mmol/L (3.5-5.1); Sodium 132 mmol/L (136-145)
[2020-05-15 06:44] LABS: Glucose Point of Care 97 mg/dL (70-110)
[2020-05-15 07:40] VITALS: BP 89/47; PULSE 65; RESP 18; TEMP 36.4; O2SAT 97
--- NOTE | 2020-05-15 08:01 | PC.NURSE ---
PD / Telenephrology Consult: Pt was admitted Wednesday evening with PD dwelling from home. She has been refusing to allow staff to drain and has declined telenephrology services until this evening. During medication administration this evening this nurse asked the pt if she was ready to speak with the nephrology physician so her PD could be restarted and she agreed. Day shift Physician was notified and consult will order a consult. This nurse has called and left a message for telenephrology notifying them of the consult.
[2020-05-15] MEDS: levothyroxine 112 mcg Tablet 224 MCG PO (09:24)
[2020-05-15] MEDS: sevelamer 800 mg Tablet PO ×2 (09:24→14:57)
[2020-05-15] MEDS: pantoprazole DR 40 mg Tablet PO (09:25)
[2020-05-15] MEDS: clopidogrel 75 mg Tablet 37.5 MG PO (09:25)
[2020-05-15] MEDS: aspirin 81 mg Chew Tablet PO (09:25)
[2020-05-15] MEDS: dorzolamide/timolol Op Soln 10 mL Btl 1 DROP EYE-LEFT (10:21)
[2020-05-15] MEDS: escitalopram 10 mg Tablet 20 MG PO (10:22)
[2020-05-15] MEDS: brimonidine 0.2% Op Soln 5 mL Btl 1 DROP EYE-LEFT (10:23)
[2020-05-15 10:31] LABS: Glucose Point of Care 163 mg/dL (70-110)
[2020-05-15 10:55] VITALS: BP 102/63
--- NOTE | 2020-05-15 11:05 | PM.DCS ---
Discharge Providers Date of Admission: 05/14/20 02:55 Date of Discharge: May 15, 2020 Attending Provider at Admission: Daksha Burdick MD Attending Provider at Discharge: Felicia Singh MD Primary Care Provider: Yovany Leonardo MD Diagnoses at Discharge Discharge Diagnosis (1) Intractable nausea and vomiting: Status: Acute (2) Dehydration: Status: Acute (3) DAILY (generalized anxiety disorder): Status: Acute Reason for Visit Reason for Visit: n/v Hospital Course Hospital Course Rizwana Herzog is a 55 year old female with history of established coronary disease, hypothyroidism, gastroparesis, recurrent nausea vomiting, peritoneal dialysis dependent presented with chief complaint of intractable nausea vomiting. Diagnostics in the ER revealed normal CBC, BMP CT abdomen did not reveal any acute pathologies, patient did not improve after getting antiemetics in the ER hence a decision was made to admit her for control of her emesis. She improved with alternating Reglan/Zofran. Skipped PD on 05/14 as otherwise appeared dehydrated. Po intake encouraged and she is tolerating full liquids at time of discharge. Underwent PD after renal consult on 05/15. She is encouraged to follow up with GI in [place] for her gastroparesis Physical Exam Narrative: EXAM NARRATIVE: GEN: Awake, alert and oriented, no acute distress CVS: S1S2 N RS: CTA B/L Abd: Soft, distended, PD catheter in place at umblicus, bs+ IT BUSINESS SYSTEMS ANALYST: no focal neuro deficits Discharge Data Data Completed and Pending: Completed Studies During Hospitalization Category Date Time Status CT abdomen pelvis w con* [id number] Urge nt Cat Scan 05/14/20 00:53 Completed Labs from last 24 hours 05/15/20 05/15/20 05/15/20 10:24 06:41 04:55 Hgb Hct Sodium 132 L Potassium 3.8 Chloride 93 L Carbon Dioxide 27 Anion Gap 15.8 BUN 42 H Creatinine 7.8 H* GFR Calculation 5.4 L Glucose 82 POC Glucose 163 97 Calculated Osmolal ity 284 L Calcium 9.3 05/15/20 05/14/20 05/14/20 04:55 21:39 16:49 Hgb 8.5 L Hct 25.7 L Sodium Potassium Chloride Carbon Dioxide Anion Gap BUN Creatinine GFR Calculation Glucose POC Glucose 106 95 Calculated Osmolal ity Calcium Vitals: Last Vital Signs Temp 97.6 F 05/15/20 07:40 Pulse 65 05/15/20 07:40 Resp 18 05/15/20 07:40 BP 102/63 05/15/20 10:55 Pulse Ox 97 05/15/20 07:40 Discharge Plan Discharge Patient Disposition: Home Condition: Stable Prescriptions: Continued nitroglycerin 0.4 mg tablet, sublingual 0.4 mg SUBLINGUAL Q5M PRN (Reason: Chest Pain) Qty: 25 RF: 6 clopidogrel 75 mg tablet 75 mg PO DAILY Qty: 30 RF: 0 (DME) pen needle, diabetic [ReliOn Pen [place]] 32 gauge x 5/32 needle See Rx Instructions .ROUTE .MEDSUPPLY Qty: 100 RF: 6 levothyroxine 112 mcg tablet 224 mcg PO DAILY Qty: 30 RF: 3 aspirin 81 mg Tablet,Chewable 81 mg PO DAILY@08 RF: 0 Auryxia 210 mg iron tablet 210 mg PO .WITH MEALS RF: 0 pantoprazole 40 mg tablet,delayed release (DR/EC) 40 mg PO DAILY@08 RF: 0 Rocklatan 0.02-0.005 % Drops 1 drp OPHTHALMIC (EYE) DAILY@20 RF: 0 sennosides-docusate sodium 8.6-50 mg tablet 2 tab PO BID PRN (Reason: Constipation) RF: 0 Lantus Solostar U-100 Insulin 100 unit/mL (3 mL) insulin pen 50 unit SUBCUT BID@08,20 RF: 0 sevelamer carbonate 800 mg tablet 800 mg PO TID RF: 0 atorvastatin 40 mg Tablet 40 mg PO DAILY@20 RF: 0 Vitamin D3 25 mcg (1,000 unit) Tablet 25 mcg PO DAILY@08 RF: 0 multivitamin [Multiple Vitamins] Tablet 1 tab PO DAILY@08 RF: 0 paricalcitol [Zemplar] 1 mcg capsule See Rx Instructions .ROUTE .COMPLEX RF: 0 coenzyme Q10 [CoQ-10] 100 mg Capsule 100 mg PO DAILY@08 RF: 0 omega 9-mxc-daa-fish oil [Fish Oil] 300-1,000 mg Capsule,Delayed Release(Dr/Ec) 1 cap PO BID@08,20 RF: 0 brimonidine 0.2 % drops 1 drp ophthalmic (eye) BID@08,20 RF: 0 dorzolamide-timolol 22.3-6.8 mg/mL drops 1 drp ophthalmic (eye) BID@08,20 RF: 0 meclizine 25 mg Tablet 25 mg PO TID Qty: 42 RF: 0 ondansetron 4 mg tablet,disintegrating 4 mg PO Q6H PRN (Reason: nausea and vomiting) Qty: 14 RF: 0 metoclopramide HCl [Reglan] 10 mg tablet 10 mg PO Q6H PRN (Reason: nausea and vomiting) Qty: 20 RF: 0 Discharge Orders: Discharge Order (Routine); Ordered 05/15/20 Ordered By: Felicia Singh Referrals: [facility] [Outside] Yovany Leonardo MD [Primary Care Provider] - 05/22/20 1:45 pm Discharge Diet: Advance as tolerated Discharge Activity: Resume usual activity Patient Instructions: Depression (DC), Acute Nausea and Vomiting (DC), Peritoneal Dialysis Activity Restrictions/Additional Instructions: To get in home services set up, please call medicaid at . Discharge Attestations Time Spent in Discharge Care*: less than 30 min Status at Discharge: Cognitive status at discharge: cognitively intact, Behavioral status at discharge: cooperative, Quality Metrics Clinical Quality Measures During this hospital stay, did patient experience: None Coding Level of Care Code Acute Senior Outside Sales Representative for Chg Fwd Diagnoses Intractable nausea and vomiting R11.2 Dehydration E86.0 DIALY (generalized anxiety disorder) F41.1
[2020-05-15] MEDS: insulin glargine 100 units/1 mL 15 UNIT SUBCUT (11:09)
[2020-05-15 11:23] VITALS: BP 100/64; PULSE 62; RESP 18; TEMP 36.7; O2SAT 97
--- NOTE | 2020-05-15 11:42 | P.PN_ITS ---
Subjective Subjective: Interval history: Mrs. Herzog is well-known to our inpatient service, with multiple admissions. Now returning with recalcitrant nausea and vomiting, believed to be secondary to gastroparesis. It has settled down a little since hospitalization. She is on PD at home cycler, 3 x 2.5% exchanges with 1 icodextrin dwell during day. This is going well. Pain less in and out flows and her PD fluid is nice and clear. She denies any extremity edema, shortness of breath or other high-volume symptoms. She denies any uremic symptoms. Recent admissions with both heart disease and also with psychiatric disorder. Vitals/I&O/Wt Last Vital Signs Temp 98.1 F 05/15/20 11:23 Pulse 62 05/15/20 11:23 Resp 18 05/15/20 11:23 BP 100/64 05/15/20 11:23 Pulse Ox 97 05/15/20 11:23 05/14/20 05/15/20 05/15/20 22:59 06:59 14:59 Intake Total 120 / 600 240 / 240 Output Total 200 / 200 Balance -80 / 400 240 / 240 Weight last 48 hrs Weight 94.347 kg Physical Exam Narrative: EXAM NARRATIVE: Constitutional: Awake, conversant, comfortable HEENT: Wet mucosa, no jvp, non icteric Lungs: Bilaterally clear without discernible wheeze, rales in all lung zones CVS: S1 S2, no murmurs Abdo: Soft, BS ok, exit looks good Ext 4: Minimal edema, peripheral perfusion with no cyanosis Neurological: Grossly non-focal Data : 05/15/20 04:55 05/15/20 04:55 A&P Additional A&P Information 1. ESRD - will continue in house CAPD; PD fluid cell count and culture. Resume PD all 2.5%, 2L exchanges QID. Gentamicin ointment to exit site. 2. Vomiting - Believed to be secondary to gastroparesis. Currently on Zofran and Reglan as overseen by the primary team. 3. Hemodynamics stable 4. Anemia. Below goal for end-stage kidney disease. If she remains in the hospital for more than a few days will check iron levels and dose Epogen. This is actively managed as part of her standard care as an outpatient. Zhou Mcfarland MD Nephrology [phone] Patient seen and examined via telemedicine, with the assistance of the bedside RN Attestations Medical Necessity Statement*: mgmt of PD Coding Level of Care Code Acute Care Program Director for Maris Braden
--- NOTE | 2020-05-15 14:12 | PC.CHAP ---
Pastoral Care Encounter/Spiritual Assessment Type of Contact [] Declined senior technical recruiter visit [] Patient/Family/Request visit [] Outpatient visit [] Follow-up visit [] Physician referral [] Code/Alert [x] Routine visit [] Staff referral [] Actively dying [] Patient sleeping [] Family support [] [] Out of room [] Palliative care [] [] Receiving care in room [] Pre-surgical visit [] Trauma [] Long length of stay [] ICU visit [] Other: Relational/Emotional Strength [] Patient feels connected with others/family/visitors/staff [] Distress [] Loneliness/isolation [] Abandonment Spirituality of Patient [] Person of Talya [] Attends Sabianism of their Talya [] Believes in Prayer [] Reads Bible or Adventism materials [] There are Spiritual issues to be addressed Weaver Dobby Loom Interventions [] Prayer [] Active listening [] Non-anxious presence [] Spiritual/emotional support [] Crisis/trauma care [] Spiritual counseling [] Bereavement support [] Provided bereavement packet [] Provided Bible/devotional materials [] Provided toy/stuffed animal, coloring book to patient or family member [] Provided Communion [] Anointing/[place] [] Salvation [] Completed spiritual assessment [] Other: Impact on Illness or Injury [] Angry [] Fearful [] Anxious [] Often cries [] Exhaustion [] Unable to work [] Unable to attend confucianist [] Unable to walk/stand [] Unable to read [] Unable to drive [] Unable to eat/drink [] Unable to sleep [] Unable to be with family [] Patient intubated [] Other: Summary Time spent with patient
--- NOTE | 2020-05-15 14:48 | PC.NURSE ---
discharge instructions given to patient and patient verbalized understanding of instructions. patient called family for ride home. patient's iv discontinued and covered with 2x2 and coban.
[2020-05-15] MEDS: Dianeal low Ca w/2.5% dex 2,000 mL Bag 2000 ML INTRAPERIT (14:51)
--- NOTE | 2020-05-15 15:25 | PC.NURSE ---
patient taken to private vehicle via wheelchair by care nurse.
[2020-05-15 15:31] VITALS: BP 100/64; PULSE 62; RESP 18; TEMP 36.7; O2SAT 97
== END 2020-05-15 15:32 | disposition home or self-care (01) ==
LOC: ER 21:55 → MEDSURG 05-14 03:52
PROVIDERS: Emergency Medicine; Admitting Provider Internal Medicine; Emergency Provider Physician Assistant; PCP Internal Medicine; Visit Provider Student in an Organized Health Care Education/Training Program
DX: R11.2 Nausea with vomiting, unspecified (principal); E86.0 Dehydration; F41.1 Generalized anxiety disorder; I25.10 Atherosclerotic heart disease of native coronary artery without angina pectoris; E03.9 Hypothyroidism, unspecified; Z79.82 Long term (current) use of aspirin; E11.22 Type 2 diabetes mellitus with diabetic chronic kidney disease; I13.2 Hypertensive heart and chronic kidney disease with heart failure and with stage 5 chronic kidney disease, or end stage renal disease; I50.32 Chronic diastolic (congestive) heart failure; N18.6 End stage renal disease; E78.5 Hyperlipidemia, unspecified; Z86.73 Personal history of transient ischemic attack (TIA), and cerebral infarction without residual deficits
CPT/HCPCS: 12345; 36415; 36416; 74177; 80048; 80053; 81001; 82962; 83690; 84703; 85014; 85018; 85025; 87070; 87075; 87205; 96361; 96372; 96374; 96375; 96376; 99283; 99285; C9113; G0378; J1644; J1815 ×2; J2270; J2405; J2765; J7040; Q3014; Q9967

== ENCOUNTER 2020-05-29 09:01 | Outpatient (CLI) | payer MEDICARE, SELFPAY ==
--- NOTE | 2020-05-29 10:00 | NM_ITS ---
WS: [id number] NUCLEAR MEDICINE GASTRIC EMPTYING EXAMINATION HISTORY: R11.2 - Nausea with vomiting, unspecified COMPARISON: CT 05/14/2020. TECHNIQUE: The patient ingested a meal containing 1.1 mCi of Tc 99m sulfur colloid mixed with eggs. The patient was placed in supine position and imaging over the abdomen was performed for a total of 9 0 minutes. Computer acquisition with the region of interest placed over the stomach to evaluate gastr ic emptying half-time. Imaging over the anterior and posterior abdomen performed immediately on ingestion and for a total of 120 minutes. Radionuclide is noted within the stomach. There is very minimal emptying of the stomach . A 120 minutes approximately 20% has emptied from the stomach. NM/[place] [id number] IMPRESSION: Significant delayed emptying from the stomach at 120 minutes. Findings are cons istent with gastroparesis.
== END 2020-05-29 09:02 | disposition home or self-care (01) ==
LOC: RAD 09:04
PROVIDERS: PCP Internal Medicine; Visit Provider Internal Medicine
DX: R11.2 Nausea with vomiting, unspecified (principal)
CPT/HCPCS: 78264; A9541

== ENCOUNTER 2020-05-29 21:23 | Emergency (ER) | payer MEDICARE, MEDICAID, SELFPAY ==
[2020-05-29 21:27] VITALS: BP 98/69; PULSE 135; RESP 20; TEMP 36.7; O2SAT 97; BMI 34.2
[2020-05-29 21:30] VITALS: PULSE 88; RESP 18; O2SAT 98
[2020-05-29 22:00] VITALS: PULSE 89; RESP 18; O2SAT 98
--- NOTE | 2020-05-29 22:09 | ED_ITS ---
HPI - Nausea/Vomiting/Diarrhea General: Chief complaint: Nausea/Vomiting/Diarrhea Stated complaint: nausea/vomiting Time Seen by Provider: 05/29/20 21:33 Source: patient Mode of arrival: ambulatory Limitations: no limitations History of Present Illness: HPI Narrative: 55-year-old female who is chronic nausea and vomiting states she had increased vomiting today and is unable to keep anything down. She had a outpatient imaging that showed decreased gastric emptying consistent with gastroparesis. She denies any worsening improving factors. Denies any fevers. MD elicited complaint: nausea and vomiting Associated nausea: Yes Associated symtoms: Reports nausea; Denies chest pain, dysuria or headache(s) Review of Systems Const: Denies: fever(s), chills, body aches or change in appetite Eyes: Denies: blurry vision or eye discomfort ENMT: Denies: throat pain or dental pain Card: Denies: chest pain Resp: Denies: dyspnea GI: Reports: abdominal pain, nausea and vomiting : Denies: dysuria Musc: Denies: neck pain or back pain Skin/Breast: Denies: rash Neuro: Denies: headache(s) Psych: Denies: depression [place]/Lymph: Denies: easy bruising All/Imm: Denies: urticaria PFSH ED PFSH: Medical History Anxiety CAD (coronary artery disease) Chronic diastolic CHF (congestive heart failure) Compensated currently Chronic kidney disease, stage V Claustrophobia Depression Diabetes Insulin-dependent End stage renal disease ESRD (end stage renal disease) Gastroparesis GERD (gastroesophageal reflux disease) HTN (hypertension) Hyperlipidemia Hypothyroidism Partial nontraumatic amputation of left foot (~06/2019) Peripheral vascular disease TIA (transient ischemic attack) Vitamin D deficiency Surgical History History of appendectomy History of heart artery stent History of hysterectomy History of left heart catheterization History of right below knee amputation Peritoneal dialysis catheter in place S/P cholecystectomy S/P PICC central line placement Status post amputation of toe Family History Denies family history of CAD (coronary artery disease) Clotting disorder Dementia Bleeding disorder Social History Smoking and tobacco status: never smoked Alcohol intake: never Household members: spouse and family History of recent travel: No Physical Exam Const: COMMON NORMALS: no acute distress, patient oriented x3 and healthy appearing HENMT: COMMON NORMALS: normocephalic and atraumatic HEAD & SCALP: normocephalic and atraumatic Eye: COMMON NORMALS: Equal, round and reactive pupils present and EOMs intact bilaterally PUPIL: Yes Equal, round and reactive pupils present Neck/C-Spine: COMMON NORMALS: full ROM and supple Chest: COMMONS NORMALS: normal inspection of the chest and normal palpation of entire chest wall Resp: COMMON NORMALS: normal respiratory effort, No retractions, No use of accessory muscles and clear to auscultation bilaterally AUSCULTATION: clear to auscultation bilaterally Cardio: COMMON NORMALS: regular rate, regular rhythm and No murmurs present (Cardio) RATE: regular rate RHYTHM: regular rhythm GI: COMMON NORMALS: Normal to inspection, nondistended, normoactive bowel sounds present, Soft to palpation, non-tender and no masses PALPATION: Yes Soft to palpation Extremity: COMMON NORMALS: normal to inspection and full ROM Neuro: COMMON NORMALS: patient oriented x3, moves all extremities and no focal motor deficits Psych: COMMON NORMALS: mental status grossly normal, Normal thought process present and cooperative THOUGHT PROCESS: Normal thought process present Skin: COMMON NORMALS: no rashes or lesions noted and no wounds GENERAL SKIN EXAM: no rashes or lesions noted Course Vital Signs: Vital signs: Vital Signs Temperature 98.1 F 05/29/20 21:27 Pulse Rate 84 05/29/20 23:30 Respiratory Rate 18 05/29/20 23:30 Blood Pressure 130/82 05/29/20 23:30 Pulse Oximetry 97 05/29/20 23:30 MDM - Nausea/Vomiting/Diarrhea MDM Narrative: Medical decision making narrative: Rizwana presents here with vomiting likely from gastroparesis. Patient's blood work here is stable. She is stable for discharge and is to follow-up with her PCP to go over her gastroparesis. She is return if worsening. She understands and agrees to plan. Lab Data: Labs: Lab Results 05/29/20 05/29/20 Range/Units 23:06 23:06 WBC 7.7 (4.0-10.0) 10^3/ uL RBC 3.14 L (4.1-5.3) 10^6/u L Hgb 10.1 L (11.5-15.3) g/dL Hct 30.8 L (37.0-47.0) % MCV 98.1 (81-99) fL MCH 32.2 (28.0-34.0) pg MCHC 32.8 (30.0-36.0) g/dL RDW 13.7 (12.1-15.1) % Plt Count 226 (130-400) 10^3/c mm MPV 11.6 H (7.4-10.4) fL Neut % (Auto) 71.0 % Lymph % (Auto) 17.7 % [place] % (Auto) 8.3 % Eos % (Auto) 2.1 % Baso % (Auto) 0.5 % Neut # (Auto) 5.46 (1.8-7.7) 10^3/u L Lymph # (Auto) 1.4 (0.8-4.8) 10^3/u L [place] # (Auto) 0.6 (0.2-0.9) 10^3/u L Eos # (Auto) 0.2 (0.0-0.8) 10^3/u L Baso # (Auto) 0.0 (0.0-0.1) 10^3/u L Nucleated RBC % (a uto) 0 % Nucleated RBCs # 0.0 /100WBC Sodium 131 L (136-145) mmol/L Potassium 3.2 L (3.5-5.1) mmol/L Chloride 90 L (98-107) mmol/L Carbon Dioxide 26 (22-29) mmol/L Anion Gap 18.2 (5-19) BUN 37 H (6-20) mg/dL Creatinine 6.7 H* (0.5-0.9) mg/dL GFR Calculation 6.4 L (90-130) mL/min Glucose 199 H (65-115) mg/dL Calculated Osmolal ity 286 (285-295) mOsm/k g Calcium 9.7 (8.5-10.5) mg/dL Total Bilirubin 0.4 (0.15-1.2) mg/dL AST 12 (0-32) U/L ALT 15 (0-33) U/L Alkaline Phosphata se 108 H (35-105) IU/L Total Protein 7.0 (6.6-8.7) g/dL Albumin 3.2 L (3.5-5.2) g/dL Globulin 3.8 (1.3-4.6) g/dL Lipase 74 H (13-60) U/L Discharge Plan Discharge Patient Disposition: Home Clinical Impression: Vomiting Qualifiers: Vomiting type: unspecified Vomiting Intractability: non-intractable Nausea presence: with nausea Qualified Code(s): R11.2 - Nausea with vomiting, un specified Condition: Stable Prescriptions: No Action nitroglycerin 0.4 mg tablet, sublingual 0.4 mg SUBLINGUAL Q5M PRN (Reason: Chest Pain) Qty: 25 RF: 6 clopidogrel 75 mg tablet 75 mg PO DAILY Qty: 30 RF: 0 (DME) pen needle, diabetic [ReliOn Pen [place]] 32 gauge x 5/32 needle See Rx Instructions .ROUTE .MEDSUPPLY Qty: 100 RF: 6 levothyroxine 112 mcg tablet 224 mcg PO DAILY Qty: 30 RF: 3 Lantus Solostar U-100 Insulin 100 unit/mL (3 mL) insulin pen 50 unit SUBCUT BID@08,20 Qty: 15 RF: 12 aspirin 81 mg Tablet,Chewable 81 mg PO DAILY@08 RF: 0 Auryxia 210 mg iron tablet 210 mg PO .WITH MEALS RF: 0 pantoprazole 40 mg tablet,delayed release (DR/EC) 40 mg PO DAILY@08 RF: 0 Rocklatan 0.02-0.005 % Drops 1 drp OPHTHALMIC (EYE) DAILY@20 RF: 0 sennosides-docusate sodium 8.6-50 mg tablet 2 tab PO BID PRN (Reason: Constipation) RF: 0 sevelamer carbonate 800 mg tablet 800 mg PO TID RF: 0 atorvastatin 40 mg Tablet 40 mg PO DAILY@20 RF: 0 Vitamin D3 25 mcg (1,000 unit) Tablet 25 mcg PO DAILY@08 RF: 0 multivitamin [Multiple Vitamins] Tablet 1 tab PO DAILY@08 RF: 0 paricalcitol [Zemplar] 1 mcg capsule 1 mcg .ROUTE DAILY RF: 0 coenzyme Q10 [CoQ-10] 100 mg Capsule 100 mg PO DAILY@08 RF: 0 omega 0-iwe-sxc-fish oil [Fish Oil] 300-1,000 mg Capsule,Delayed Release(Dr/Ec) 1 cap PO BID@08,20 RF: 0 brimonidine 0.2 % drops 1 drp ophthalmic (eye) BID@08,20 RF: 0 dorzolamide-timolol 22.3-6.8 mg/mL drops 1 drp ophthalmic (eye) BID@08,20 RF: 0 meclizine 25 mg Tablet 25 mg PO TID Qty: 42 RF: 0 ondansetron 4 mg tablet,disintegrating 4 mg PO Q6H PRN (Reason: nausea and vomiting) Qty: 14 RF: 0 Discharge Orders: Discharge ED (Routine); Ordered 05/29/20 Ordered By: Carlos A Jeronimo Referrals: Yovany Leonardo MD [Primary Care Provider] - 1-3 days Discharge Diet: Advance as tolerated Discharge Activity: Resume usual activity Patient Instructions: Acute Nausea and Vomiting (ED) Coding Level of Care Code ED Spiral Tube Winder Helper for Maris Fwd Exam Comprehensive
[2020-05-29 22:30] VITALS: RESP 18; O2SAT 99
[2020-05-29 23:00] VITALS: BP 130/81; PULSE 82; RESP 14; O2SAT 98
[2020-05-29] MEDS: diphenhydrAMINE 50 mg/mL SDV 1mL IVP (23:07)
[2020-05-29] MEDS: sodium chloride 0.9% 1,000 ML 999 ML IV (23:07)
[2020-05-29] MEDS: metoclopramide 5 mg/mL SDV 2 mL 10 MG IVP (23:07)
[2020-05-29 23:14] LABS: Basophils % 0.5 %; Eosinophils # 0.2 10^3/uL (0.0-0.8); Eosinophils % 2.1 %; Hematocrit 30.8 % (37.0-47.0); Hemoglobin 10.1 g/dL (11.5-15.3); Lymphocytes # 1.4 10^3/uL (0.8-4.8); Lymphocytes % 17.7 %; Mean Corpuscular HGB Conc 32.8 g/dL (30.0-36.0); Mean Corpuscular Hemoglobin 32.2 pg (28.0-34.0); Mean Corpuscular Volume 98.1 fL (81-99); Mean Platelet Volume 11.6 fL (7.4-10.4); Monocytes # 0.6 10^3/uL (0.2-0.9); Monocytes % 8.3 %; Neutrophils # 5.46 10^3/uL (1.8-7.7); Nucleated Red Blood Cells % 0 %; Platelet Count 226 10^3/cmm (130-400); Red Blood Count 3.14 10^6/uL (4.1-5.3); Red Cell Distribution Width 13.7 % (12.1-15.1); White Blood Count 7.7 10^3/uL (4.0-10.0)
[2020-05-29 23:30] VITALS: BP 130/82; PULSE 84; RESP 18; O2SAT 97
[2020-05-29 23:35] LABS: Alanine Aminotransferase 15 U/L (0-33); Albumin Level 3.2 g/dL (3.5-5.2); Alkaline Phosphatase 108 IU/L (35-105); Anion Gap 18.2 (5-19); Aspartate Amino Transferase 12 U/L (0-32); Blood Urea Nitrogen 37 mg/dL (6-20); Calcium 9.7 mg/dL (8.5-10.5); Carbon Dioxide 26 mmol/L (22-29); Chloride 90 mmol/L (98-107); Globulin 3.8 g/dL (1.3-4.6); Glomerular Filtration Rate 6.4 mL/min (90-130); Glucose 199 mg/dL (65-115); Lipase 74 U/L (13-60); Osmolality Calculated 286 mOsm/kg (285-295); Potassium 3.2 mmol/L (3.5-5.1); Sodium 131 mmol/L (136-145); Total Bilirubin 0.4 mg/dL (0.15-1.2)
[2020-05-29] MEDS: LORazepam 2 mg/mL INJ 1 mL 1 MG IVP (23:40)
--- NOTE | 2020-05-29 23:47 | PC.NURSE ---
IV start attempt by myself x 3, Jay GORDON x 2, and Dr Jeronimo x 1
[2020-05-30 00:04] VITALS: BP 125/74; PULSE 84; RESP 18; O2SAT 99
== END 2020-05-29 23:59 | disposition home or self-care (01) ==
PROVIDERS: Emergency Provider Emergency Medicine; PCP Internal Medicine
DX: R11.2 Nausea with vomiting, unspecified (principal); Z79.02 Long term (current) use of antithrombotics/antiplatelets; Z79.4 Long term (current) use of insulin; Z79.82 Long term (current) use of aspirin; I25.10 Atherosclerotic heart disease of native coronary artery without angina pectoris; I13.2 Hypertensive heart and chronic kidney disease with heart failure and with stage 5 chronic kidney disease, or end stage renal disease; E11.22 Type 2 diabetes mellitus with diabetic chronic kidney disease; N18.6 End stage renal disease; I50.32 Chronic diastolic (congestive) heart failure; E78.5 Hyperlipidemia, unspecified; Z86.73 Personal history of transient ischemic attack (TIA), and cerebral infarction without residual deficits
CPT/HCPCS: 12345; 78264; 80053; 83690; 85025; 96361; 96374; 96375; 96376; 99283; A9541; J1200; J2060; J2765; J7030

== ENCOUNTER 2020-06-22 18:18 | Emergency (ER) | payer MEDICARE, MEDICAID, SELFPAY ==
[2020-06-22] VITALS (7 sets, daily range): BP systolic 96–147; BP diastolic 64–94; PULSE 74–93; RESP 16–18; TEMP 36.5; O2SAT 90–96; BMI 34.2
--- NOTE | 2020-06-22 18:49 | CTR_ITS ---
PROCEDURE INFORMATION: Exam: CT Abdomen And Pelvis Without Contrast Exam date and time: 06/22/2020 7:34 PM Age: 55 years old Clinical indication: Abdominal pain; Localized; Right lower quadrant (rlq); Prior surgery; Surgery date: 6+ months; Additional info: Rlq pain TECHNIQUE: Imaging protocol: Computed tomography of the abdomen and pelvis without contrast. Radiation optimization: All CT scans at this facility use at least one of these dose optimization techniques: automated exposure control; mA and/or kV adjustment per patient size (includes targeted exams where dose is matched to clinical indication); or iterative reconstruction. COMPARISON: CT abdomen pelvis w con* [id number] 05/14/2020 1:12 AM RADIATION DOSE METRICS: Total DLP (mGy-cm): 1628.31 FINDINGS: Tubes, catheters and devices: Peritoneal dialysis catheter is present coiled in the right pelvis. Lungs: There is patchy ground-glass opacity in the lungs compatible with pneumonitis, edema and/or atelectasis. Heart: The heart is enlarged. Mediastinal space: A small hiatal hernia is present. Liver: Unremarkable.No mass. Gallbladder and bile ducts: There has been a cholecystectomy. There is no common bile duct dilation. Pancreas: Normal. No ductal dilation. Spleen: Normal. No splenomegaly. Adrenal glands: Normal. No mass. Kidneys and ureters: There is no evidence of hydronephrosis. Nephrolithiasis versus bilateral renal vascular calcifications are noted. Stomach and bowel: There is no evidence of intestinal perforation or obstruction. There is no evidence of colitis/diverticulitis. Appendix: The appendix is not definitively identified. However, there is no CT evidence of a right lower quadrant inflammatory process. Intraperitoneal space: There is a moderate quantity of ascites. Vasculature: The aorta demonstrates mild atherosclerotic calcification. Lymph nodes: Unremarkable.No enlarged lymph nodes. Urinary bladder: The bladder is decompressed. Reproductive: There has been a hysterectomy. Bones/joints: Unremarkable. No acute fracture. Soft tissues: There is a fat-containing umbilical hernia. CT/CT abdomen pelvis wo con [id number] IMPRESSION: 1. There is patchy ground-glass opacity in the lungs compatible with pneumonitis, edema and/or atelectasis. 2. Unchanged free intraperitoneal fluid compatible with peritoneal dialysis similar to the prior exam. 3. Unchanged exam. No acute abnormality. Radiation Dose CTDIVOL = (mGy): DLP = 1628.31 (mGy-cm)
[2020-06-22] MEDS: ondansetron 2 mg/ML SDV 2 mL 4 MG IVP (19:15)
[2020-06-22] MEDS: morphine 4 mg/mL SDV 1 mL IVP (19:30)
[2020-06-22 19:56] LABS: Basophils % 0.4 %; Eosinophils # 0.2 10^3/uL (0.0-0.8); Eosinophils % 1.7 %; Hematocrit 35.4 % (37.0-47.0); Hemoglobin 11.7 g/dL (11.5-15.3); Lymphocytes # 0.5 10^3/uL (0.8-4.8); Lymphocytes % 4.8 %; Mean Corpuscular HGB Conc 33.1 g/dL (30.0-36.0); Mean Corpuscular Hemoglobin 32.3 pg (28.0-34.0); Mean Corpuscular Volume 97.8 fL (81-99); Mean Platelet Volume 11.8 fL (7.4-10.4); Monocytes # 0.4 10^3/uL (0.2-0.9); Monocytes % 3.3 %; Neutrophils % 89.4 %; Nucleated Red Blood Cells % 0 %; Platelet Count 289 10^3/cmm (130-400); Red Blood Count 3.62 10^6/uL (4.1-5.3); Red Cell Distribution Width 12.8 % (12.1-15.1); White Blood Count 10.8 10^3/uL (4.0-10.0)
[2020-06-22 20:10] LABS: Alanine Aminotransferase 19 U/L (0-33); Albumin Level 3.5 g/dL (3.5-5.2); Alkaline Phosphatase 156 IU/L (35-105); Anion Gap 17.7 (5-19); Aspartate Amino Transferase 17 U/L (0-32); Blood Urea Nitrogen 24 mg/dL (6-20); Calcium 9.9 mg/dL (8.5-10.5); Carbon Dioxide 27 mmol/L (22-29); Chloride 92 mmol/L (98-107); Globulin 3.9 g/dL (1.3-4.6); Glomerular Filtration Rate 7.5 mL/min (90-130); Glucose 370 mg/dL (65-115); Lipase 25 U/L (13-60); Osmolality Calculated 295 mOsm/kg (285-295); Potassium 3.7 mmol/L (3.5-5.1); Sodium 133 mmol/L (136-145); Total Bilirubin 0.4 mg/dL (0.15-1.2); Total Protein 7.4 g/dL (6.6-8.7)
[2020-06-22 20:12] LABS: Lactate (Lactic Acid level) 2.3 mmol/L (0.5-2.2)
[2020-06-22 21:15] LABS: Add Urine Microscopic? YES; Bilirubin Urine 1+ (Negative); Blood Urine 2+ (Negative); Glucose Urine UA 4+ (Normal); Ketones Urine Negative (Negative); Leukocyte Esterase Urine Negative (Negative); Nitrate Urine Negative (Negative); Protein Urine 3+ (Negative); Urine Appearance Hazy (CLEAR); Urine Color Yellow (Yellow); Urobilinogen Urine 1 mg/dL (Negative); pH Urine 5 (5-7)
[2020-06-22 21:17] LABS: Add Urine Culture? No; Amorphous Sediment Urine 1+ /hpf; Bacteria Urine 2+ /hpf; RBC Urine RARE /hpf (0-2); Squamous Epithelial Cell Urine 15-25 /hpf (0-5)
--- NOTE | 2020-06-22 21:37 | ED_ITS ---
HPI - Abdominal Pain General: Chief Complaint: Abdominal Pain Stated Complaint: ab pain, n/v Time Seen by Provider: 06/22/20 18:39 Source: patient Mode of arrival: ambulatory Limitations: no limitations History of Present Illness: MD elicited complaint: abdominal pain Pertinent past history: other (ESRD on peritoneal dialysis) Pain Consistency: constant Location: RLQ and Suprapubic Severity: moderate Quality: stabbing Radiation: none Migration to: no migration Exacerbating factors: nothing Relieving factors: nothing Associated Symptoms: Reports nausea; Denies anorexia, belching, bloating, change in bowel habits, change in stool character, chills, coffee ground emesis, constipation, GI cramping, diarrhea, dyspepsia, dysuria, excessive flatus, fever(s), heartburn, hematochezia, hematuria, hematemesis, fecal incontinence, loose stools, melena, poor appetite, syncope and vomiting Review of Systems General: Reports: 10 or more systems reviewed and unremarkable except in HPI and below Const: Denies: fever(s) or chills Eyes: Denies: change in vision or blurry vision ENMT: Denies: throat pain, enlarged tonsils, odynophagia, hoarseness, mouth pain or swelling of lips/tongue Card: Denies: syncope Resp: Denies: dyspnea, productive cough or non-productive cough GI: Reports: nausea; Denies: vomiting, hematemesis, coffee ground emesis, heartburn, diarrhea, constipation, bloating, GI cramping, belching, excessive flatus, fecal incontinence, change in bowel habits, change in stool character, hematochezia or melena : Denies: dysuria or hematuria Musc: Denies: neck pain, back pain or extremity swelling Skin/Breast: Denies: rash, pruritus or erythema Neuro: Denies: headache(s), numbness in extremities or weakness in extremities Endo: Denies: polyuria, polydipsia or tired all the time PFSH ED PFSH: Medical History Anxiety CAD (coronary artery disease) Chronic diastolic CHF (congestive heart failure) Compensated currently Chronic kidney disease, stage V Claustrophobia Depression Diabetes Insulin-dependent End stage renal disease ESRD (end stage renal disease) Gastroparesis GERD (gastroesophageal reflux disease) HTN (hypertension) Hyperlipidemia Hypothyroidism Partial nontraumatic amputation of left foot (~06/2019) Peripheral vascular disease TIA (transient ischemic attack) Vitamin D deficiency Surgical History History of appendectomy History of heart artery stent History of hysterectomy History of left heart catheterization History of right below knee amputation Peritoneal dialysis catheter in place S/P cholecystectomy S/P PICC central line placement Status post amputation of toe Family History Denies family history of CAD (coronary artery disease) Clotting disorder Dementia Bleeding disorder Social History Smoking and tobacco status: never smoked Alcohol intake: never Household members: spouse and family History of recent travel: No Physical Exam Const: COMMON NORMALS: no acute distress, average body habitus, patient oriented x3, no limitations, healthy appearing, alert and well nourished HENMT: COMMON NORMALS: normocephalic, atraumatic and moist oral mucous membranes HEAD & SCALP: normocephalic and atraumatic Neck/C-Spine: COMMON NORMALS: no meningeal signs and no JVD Resp: COMMON NORMALS: normal respiratory effort, No retractions, No use of accessory muscles, clear to auscultation bilaterally and percussion normal AUSCULTATION: clear to auscultation bilaterally PERCUSSION: percussion normal Cardio: COMMON NORMALS: no JVD, regular rate, regular rhythm, S1 normal heart sound present, S2 normal heart sound present, No gallops present (Cardio), No clicks present (Cardio), No murmurs present (Cardio), No rub (Cardio) and Peripheral pulses 2+ throughout RATE: regular rate RHYTHM: regular rhythm HEART SOUNDS: S1 normal heart sound present and S2 normal heart sound present PERIPHERAL PULSES: Peripheral pulses 2+ throughout GI: COMMON NORMALS: Normal to inspection, nondistended, normoactive bowel soun ds present, Soft to palpation, No hepatosplenomegaly present, no masses and no bruits PALPATION: Yes Soft to palpation, Yes Tenderness to palpation present (GI) (suprapubic) Details: RLQ and Yes No hepatosplenomegaly present Extremity: COMMON NORMALS: normal to inspection, full ROM, capillary refill normal, no calf tenderness and no pedal edema Neuro: COMMON NORMALS: patient oriented x3 SENSORIUM/ORIENTATION: Yes alert MENINGEAL SIGNS: Yes no meningeal signs Skin: COMMON NORMALS: no rashes or lesions noted, no wounds, turgor normal, no jaundice, no petechiae and no mottling GENERAL SKIN EXAM: no rashes or lesions noted and turgor normal Course Reevaluation(s): Reevaluation #1: Discussed her lab and imaging findings with the patient and her . Negative for acute findings. CT of the abdomen and pelvis does not reveal anything concerning. White cell count is only mildly elevated. Creatinine went up to the expected. I do not have an explanation for her pain on her pain resolved with a single dose of intravenous morphine. We will discharge her home with a prescription for some pain medicine and she is to follow-up with her primary care provider. They voiced understanding and are in agreement with the plan Time: 21:48 Vital Signs: Vital signs: Vital Signs Temperature 97.7 F 06/22/20 18:22 Pulse Rate 93 06/22/20 19:24 Respiratory Rate 18 06/22/20 19:30 Blood Pressure 143/94 06/22/20 19:24 Pulse Oximetry 91 06/22/20 19:30 MDM - Abdominal Pain MDM Narrative: Medical decision making narrative: 55-year-old diabetic who has end-stage renal disease on peritoneal dialysis presents with nonspecific abdominal pain. Evaluation in the emergency department was unremarkable with nothing pointing to the cause for her pain. Pain was relieved with a single dose of intravenous morphine. She is discharged home on conservative management but advised to return for any concerns and she is to follow-up with her primary care provider. Medical Records: Attestation: I reviewed the patient's medical records. Lab Data: Attestation: I reviewed the patient's lab results. Labs: Lab Results 06/22/20 06/22/20 06/22/20 Range/Units 19:15 19:15 19:15 WBC 10.8 H (4.0-10.0) 10^3/ uL RBC 3.62 L (4.1-5.3) 10^6/u L Hgb 11.7 (11.5-15.3) g/dL Hct 35.4 L (37.0-47.0) % MCV 97.8 (81-99) fL MCH 32.3 (28.0-34.0) pg MCHC 33.1 (30.0-36.0) g/dL RDW 12.8 (12.1-15.1) % Plt Count 289 (130-400) 10^3/c mm MPV 11.8 H (7.4-10.4) fL Neut % (Auto) 89.4 % Lymph % (Auto) 4.8 % [place] % (Auto) 3.3 % Eos % (Auto) 1.7 % Baso % (Auto) 0.4 % Neut # (Auto) 9.70 H (1.8-7.7) 10^3/u L Lymph # (Auto) 0.5 L (0.8-4.8) 10^3/u L [place] # (Auto) 0.4 (0.2-0.9) 10^3/u L Eos # (Auto) 0.2 (0.0-0.8) 10^3/u L Baso # (Auto) 0.0 (0.0-0.1) 10^3/u L Nucleated RBC % (a uto) 0 % Nucleated RBCs # 0.0 /100WBC Sodium 133 L (136-145) mmol/L Potassium 3.7 (3.5-5.1) mmol/L Chloride 92 L (98-107) mmol/L Carbon Dioxide 27 (22-29) mmol/L Anion Gap 17.7 (5-19) BUN 24 H (6-20) mg/dL Creatinine 5.8 H* (0.5-0.9) mg/dL GFR Calculation 7.5 L (90-130) mL/min Glucose 370 H (65-115) mg/dL Calculated Osmolal ity 295 (285-295) mOsm/k g Lactate 2.3 H (0.5-2.2) mmol/L Calcium 9.9 (8.5-10.5) mg/dL Total Bilirubin 0.4 (0.15-1.2) mg/dL AST 17 (0-32) U/L ALT 19 (0-33) U/L Alkaline Phosphata se 156 H (35-105) IU/L C-Reactive Protein 15.0 H (0.0-4.9) mg/L Total Protein 7.4 (6.6-8.7) g/dL Albumin 3.5 (3.5-5.2) g/dL Globulin 3.9 (1.3-4.6) g/dL Lipase 25 (13-60) U/L Urine Color (Yellow) Urine Appearance (CLEAR) Urine pH (5-7) Ur Specific Gravit y (1.005-1.030) Urine Protein (Negative) Urine Glucose (UA) (Normal) Urine Ketones (Negative) Urine Blood (Negative) Urine Nitrate (Negative) Urine Bilirubin (Negative) Urine Urobilinogen (Negative) mg/dL Ur Leukocyte Yara ase (Negative) Urine RBC (0-2) /hpf Urine WBC (0-5) /hpf Ur Squamous Epith Cells (0-5) /hpf Amorphous Sediment /hpf Urine Bacteria (NONE) /hpf 06/22/20 Range/Units 20:15 WBC (4.0-10.0) 10^3/ uL RBC (4.1-5.3) 10^6/u L Hgb (11.5-15.3) g/dL Hct (37.0-47.0) % MCV (81-99) fL MCH (28.0-34.0) pg MCHC (30.0-36.0) g/dL RDW (12.1-15.1) % Plt Count (130-400) 10^3/c mm MPV (7.4-10.4) fL Neut % (Auto) % Lymph % (Auto) % [place] % (Auto) % Eos % (Auto) % Baso % (Auto) % Neut # (Auto) (1.8-7.7) 10^3/u L Lymph # (Auto) (0.8-4.8) 10^3/u L [place] # (Auto) (0.2-0.9) 10^3/u L Eos # (Auto) (0.0-0.8) 10^3/u L Baso # (Auto) (0.0-0.1) 10^3/u L Nucleated RBC % (a uto) % Nucleated RBCs # /100WBC Sodium (136-145) mmol/L Potassium (3.5-5.1) mmol/L Chloride (98-107) mmol/L Carbon Dioxide (22-29) mmol/L Anion Gap (5-19) BUN (6-20) mg/dL Creatinine (0.5-0.9) mg/dL GFR Calculation (90-130) mL/min Glucose (65-115) mg/dL Calculated Osmolal ity (285-295) mOsm/k g Lactate (0.5-2.2) mmol/L Calcium (8.5-10.5) mg/dL Total Bilirubin (0.15-1.2) mg/dL AST (0-32) U/L ALT (0-33) U/L Alkaline Phosphata se (35-105) IU/L C-Reactive Protein (0.0-4.9) mg/L Total Protein (6.6-8.7) g/dL Albumin (3.5-5.2) g/dL Globulin (1.3-4.6) g/dL Lipase (13-60) U/L Urine Color Yellow (Yellow) Urine Appearance Hazy A (CLEAR) Urine pH 5 (5-7) Ur Specific Gravit y 1.010 (1.005-1.030) Urine Protein 3+ H (Negative) Urine Glucose (UA) 4+ H (Normal) Urine Ketones Negative (Negative) Urine Blood 2+ H (Negative) Urine Nitrate Negative (Negative) Urine Bilirubin 1+ H (Negative) Urine Urobilinogen 1 H (Negative) mg/dL Ur Leukocyte Yara ase Negative (Negative) Urine RBC Rare (0-2) /hpf Urine WBC 5-10 H (0-5) /hpf Ur Squamous Epith Cells 15-25 H (0-5) /hpf Amorphous Sediment 1+ /hpf Urine Bacteria 2+ H (NONE) /hpf Imaging Data ^: CT Abd/Pel: Attestation: I personally reviewed and interpreted this imaging study as follows: Radiologist's impression: [address] [address] [address] Scan Report Signed Patient: Rizwana Herzog #: [id number] : 1965Acct#:[id number] Age/Sex: 55 / FADM Date: 06/22/20 Loc: ERRoom/Bed: Attending Dr: Ordering Provider/Ordering MD: Nani Ferreira MD, [facility] Date of Service: 06/22/20 Procedure(s): CT abdomen pelvis wo con [id number] Accession Number(s): [id number] Report Number: [id number] PROCEDURE INFORMATION: Exam: CT Abdomen And Pelvis Without Contrast Exam date and time: 06/22/2020 7:34 PM Age: 55 years old Clinical indication: Abdominal pain; Localized; Right lower quadrant (rlq); Prior surgery; Surgery date: 6+ months; Additional info: Rlq pain TECHNIQUE: Imaging protocol: Computed tomography of the abdomen and pelvis without contrast. Radiation optimization: All CT scans at this facility use at least one of these dose optimization techniques: automated exposure control; mA and/or kV adjustment per patient size (includes targeted exams where dose is matched to clinical indication); or iterative reconstruction. COMPARISON: CT abdomen pelvis w con* [id number] 05/14/2020 1:12 AM RADIATION DOSE METRICS: Total DLP (mGy-cm): 1628.31 FINDINGS: Tubes, catheters and devices: Peritoneal dialysis catheter is present coiled in the right pelvis. Lungs: There is patchy ground-glass opacity in the lungs compatible with pneumonitis, edema and/or atelectasis. Heart: The heart is enlarged. Mediastinal space: A small hiatal hernia is present. Liver: Unremarkable.No mass. Gallbladder and bile ducts: There has been a cholecystectomy. There is no common bile duct dilation. Pancreas: Normal. No ductal dilation. Spleen: Normal. No splenomegaly. Adrenal glands: Normal. No mass. Kidneys and ureters: There is no evidence of hydronephrosis. Nephrolithiasis versus bilateral renal vascular calcifications are noted. Stomach and bowel: There is no evidence of intestinal perforation or obstruction. There is no evidence of colitis/diverticulitis. Appendix: The appendix is not definitively identified. However, there is no CT evidence of a right lower quadrant inflammatory process. Intraperitoneal space: There is a moderate quantity of ascites. Vasculature: The aorta demonstrates mild atherosclerotic calcification. Lymph nodes: Unremarkable.No enlarged lymph nodes. Urinary bladder: The bladder is decompressed. Reproductive: There has been a hysterectomy. Bones/joints: Unremarkable. No acute fracture. Soft tissues: There is a fat-containing umbilical hernia. CT/CT abdomen pelvis wo con [id number] IMPRESSION: 1. There is patchy ground-glass opacity in the lungs compatible with pneumonitis, edema and/or atelectasis. 2. Unchanged free intraperitoneal fluid compatible with peritoneal dialysis similar to the prior exam. 3. Unchanged exam. No acute abnormality. Radiation Dose CTDIVOL = (mGy): DLP = 1628.31 (mGy-cm) Dictated By:Micaela Lake Signed By:Socorro Lakeigned Date/Time:06/22/202027 DD/ 26 Discharge Plan Discharge Patient Disposition: Home Clinical Impression: Lower abdominal pain, End-stage renal disease on peritoneal dialysis Condition: Stable Prescriptions: [place] 5-325 mg tablet 1 tab PO Q12H PRN (Reason: pain) Qty: 5 RF: 0 Continued metoclopramide HCl [Reglan] 10 mg tablet 10 mg PO Q6H PRN (Reason: nausea and vomiting) Qty: 90 RF: 3 doxycycline hyclate 100 mg capsule 100 mg PO BID Qty: 14 RF: 0 nitroglycerin 0.4 mg tablet, sublingual 0.4 mg SUBLINGUAL Q5M PRN (Reason: Chest Pain) Qty: 25 RF: 6 clopidogrel 75 mg tablet 75 mg PO DAILY Qty: 30 RF: 0 (DME) pen needle, diabetic [ReliOn Pen [place]] 32 gauge x 5/32 needle See Rx Instructions .ROUTE .MEDSUPPLY Qty: 100 RF: 6 levothyroxine 112 mcg tablet 224 mcg PO DAILY Qty: 30 RF: 3 meclizine 25 mg tablet 25 mg PO TID Qty: 42 RF: 0 Lantus Solostar U-100 Insulin 100 unit/mL (3 mL) insulin pen 50 unit SUBCUT BID@08,20 Qty: 15 RF: 12 aspirin 81 mg Tablet,Chewable 81 mg PO DAILY@08 RF: 0 Auryxia 210 mg iron tablet 210 mg PO .WITH MEALS RF: 0 pantoprazole 40 mg tablet,delayed release (DR/EC) 40 mg PO DAILY@08 RF: 0 Rocklatan 0.02-0.005 % Drops 1 drp OPHTHALMIC (EYE) DAILY@20 RF: 0 sennosides-docusate sodium 8.6-50 mg tablet 2 tab PO BID PRN (Reason: Constipation) RF: 0 sevelamer carbonate 800 mg tablet 800 mg PO TID RF: 0 atorvastatin 40 mg Tablet 40 mg PO DAILY@20 RF: 0 Vitamin D3 25 mcg (1,000 unit) Tablet 25 mcg PO DAILY@08 RF: 0 multivitamin [Multiple Vitamins] Tablet 1 tab PO DAILY@08 RF: 0 paricalcitol [Zemplar] 1 mcg capsule 1 mcg .ROUTE DAILY RF: 0 coenzyme Q10 [CoQ-10] 100 mg Capsule 100 mg PO DAILY@08 RF: 0 omega 6-bfu-ggl-fish oil [Fish Oil] 300-1,000 mg Capsule,Delayed Release(Dr/Ec) 1 cap PO BID@,20 RF: 0 brimonidine 0.2 % drops 1 drp ophthalmic (eye) BID@,20 RF: 0 dorzolamide-timolol 22.3-6.8 mg/mL drops 1 drp ophthalmic (eye) BID@,20 RF: 0 ondansetron 4 mg tablet,disintegrating 4 mg PO Q6H PRN (Reason: nausea and vomiting) Qty: 14 RF: 0 Discharge Orders: Discharge ED (Routine); Ordered 06/22/20 Ordered By: Nani Ferreira Referrals: Yovany Leonardo MD [Primary Care Provider] - 1-3 days Patient Instructions: Abdominal Pain (ED) Activity Restrictions/Additional Instructions: Return for any new or worsening symptoms. Follow-up with your primary care provider within 3 days. Take the pain medication as needed for pain Coding Level of Care Code ED Autocad Technician for Maris Fwd Exam Comprehensive
--- NOTE | 2020-06-22 23:04 | PC.NURSE ---
pt placed on 2lpm of o2 via nasal cannula after adm of morphine, pulse ox maintaining @ 88% on r/a. Dr notified. vo orders obtained for straight cath ua after pt states she is unable to urinate for sample
== END 2020-06-22 22:15 | disposition home or self-care (01) ==
PROVIDERS: Emergency Provider Family Medicine; PCP Internal Medicine
DX: R10.30 Lower abdominal pain, unspecified (principal); I13.2 Hypertensive heart and chronic kidney disease with heart failure and with stage 5 chronic kidney disease, or end stage renal disease; E11.22 Type 2 diabetes mellitus with diabetic chronic kidney disease; N18.6 End stage renal disease; I50.32 Chronic diastolic (congestive) heart failure; Z99.2 Dependence on renal dialysis; Z79.4 Long term (current) use of insulin; Z79.82 Long term (current) use of aspirin; Z79.02 Long term (current) use of antithrombotics/antiplatelets; I25.10 Atherosclerotic heart disease of native coronary artery without angina pectoris; E78.5 Hyperlipidemia, unspecified; Z86.73 Personal history of transient ischemic attack (TIA), and cerebral infarction without residual deficits; Z89.511 Acquired absence of right leg below knee
CPT/HCPCS: 12345; 74176; 80053; 81001; 83605; 83690; 85025; 86140; 96374; 96375; 99282; 99283; J2270; J2405

== ENCOUNTER 2020-07-10 14:19 | Inpatient (IN) | payer MEDICARE, MEDICAID, SELFPAY ==
[2020-07-10] VITALS (8 sets, daily range): BP systolic 83–110; BP diastolic 55–83; PULSE 64–72; RESP 14–18; TEMP 36.4–36.6; O2SAT 96–100; BMI 30.7
--- NOTE | 2020-07-10 14:49 | XR_ITS ---
WS: [id number] Portable AP upright chest, 07/10/2020 Clinical Data: hypotension. Comparison: Portable chest, 04/23/2020. Findings: No nodules, masses or effusions are seen. The heart is normal. The pulmonary vascularity is not increased. No pneumonia or pneumothorax is seen. There is minimal linear atelectasis in the midp ortion of the right lung. Right diaphragm is elevated. The aortic arch and descending aorta show tort uosity. XR/XR chest 1V portable 32017 Impression: Atherosclerosis.
--- NOTE | 2020-07-10 14:51 | ECG_ITS ---
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 Measurements Intervals [place] Rate: 69 P: 268 MN: 165 QRS: -88 QRSD: 86 T: 29 QT: 403 QTc: 434 Interpretive Statements ECTOPIC ATRIAL RHYTHM INFERIOR MYOCARDIAL INFARCTION , PROBABLY OLD [40+ ms Q WAVE AND/OR ST/T ABNORMALITY IN II/aVF] ANTEROLATERAL MYOCARDIAL INFARCTION , PROBABLY OLD [40+ ms Q WAVE IN I/aVL/V3-V6] Compared to ECG 05/01/2020 12:13:58 Ectopic atrial rhythm now present Sinus rhythm no longer present First degree AV block no longer present Myocardial infarct finding still present Electronically Signed On 07-10-2020 20:12:14 DENTAL TECH by Gerald Smith M.D. [id number]
[2020-07-10] MEDS: sodium chloride 0.9% 500 ML IV (15:10)
[2020-07-10 15:16] LABS: Basophils # 0.1 10^3/uL (0.0-0.1); Basophils % 1.2 %; Eosinophils # 0.5 10^3/uL (0.0-0.8); Eosinophils % 4.8 %; Hematocrit 36.5 % (37.0-47.0); Hemoglobin 12.2 g/dL (11.5-15.3); Lymphocytes # 1.7 10^3/uL (0.8-4.8); Lymphocytes % 17.3 %; Mean Corpuscular HGB Conc 33.4 g/dL (30.0-36.0); Mean Corpuscular Hemoglobin 32.2 pg (28.0-34.0); Mean Corpuscular Volume 96.3 fL (81-99); Mean Platelet Volume 11.6 fL (7.4-10.4); Monocytes # 0.7 10^3/uL (0.2-0.9); Monocytes % 7.3 %; Neutrophils # 6.74 10^3/uL (1.8-7.7); Neutrophils % 68.6 %; Nucleated Red Blood Cells % 0 %; Platelet Count 351 10^3/cmm (130-400); Red Blood Count 3.79 10^6/uL (4.1-5.3); Red Cell Distribution Width 12.6 % (12.1-15.1); White Blood Count 9.8 10^3/uL (4.0-10.0)
--- NOTE | 2020-07-10 15:18 | PC.NURSE ---
EKG done at 1500 and shown to ER doctor
[2020-07-10 15:41] LABS: Troponin(5th) Baseline 154 ng/L (0-10)
[2020-07-10 15:43] LABS: Alanine Aminotransferase 12 U/L (0-33); Albumin Level 3.1 g/dL (3.5-5.2); Alkaline Phosphatase 148 IU/L (35-105); Anion Gap 19.2 (5-19); Aspartate Amino Transferase 12 U/L (0-32); Blood Urea Nitrogen 26 mg/dL (6-20); Calcium 10.1 mg/dL (8.5-10.5); Carbon Dioxide 28 mmol/L (22-29); Chloride 86 mmol/L (98-107); Globulin 3.4 g/dL (1.3-4.6); Glomerular Filtration Rate 6.7 mL/min (90-130); Glucose 244 mg/dL (65-115); Magnesium 1.8 mg/dL (1.7-2.3); NT Pro B Type Natriuretic Pept 2279 pg/mL (0-125); Osmolality Calculated 281 mOsm/kg (285-295); Phosphorus 4.8 mg/dL (2.5-4.5); Potassium 4.2 mmol/L (3.5-5.1); Sodium 129 mmol/L (136-145); Total Bilirubin 0.5 mg/dL (0.15-1.2); Total Protein 6.5 g/dL (6.6-8.7)
--- NOTE | 2020-07-10 15:55 | CT_ITS ---
WS: [id number] CT scan of the abdomen and pelvis without Oral and IV contrast. Additional two-dimensional coronal a nd sagittal reconstruction was performed. 07/10/2020 Clinical Data: abdominal pain. h/o peritonitis Comparison: CT abdomen pelvis, 06/22/2020. DLP: 1234.[address] scans at [facility] use at least one of these dose optimization techniques: automat ed exposure control; mA and/or kV adjustment per patient size (includes targeted exams where dose is matched to clinical indication); or iterative reconstruction. Findings: The lower lungs show no nodules, masses or effusions. There is patchy atelectasis at both lung bases. There is coronary artery calcification and small hiatal hernia. The liver, spleen, adrenal glands an d pancreas are normal. There are clips in the gallbladder fossa from a cholecystectomy. The kidneys are small with multiple vascular and possible renal calcifications. The abdominal aorta i s normal in size with minimal calcification in the wall. No appendicitis or diverticulitis is seen. No abscess, adenopathy, mass, obstruction or free air is s een. There is a large amount of ascites throughout the abdomen. There is an umbilical hernia containi ng ascites and fat. There is a peritoneal catheter which is curled in the pelvis. The stomach, small bowel and colon show no abnormalities. There is fecal material in the colon. The bladder is unremarkable. The uterus is absent. No inguinal hernia is seen. The bones of the lower thorax, lumbar spine, pelvis, and hips are normal. CT/CT abdomen pelvis wo con [id number] Impression: 1. Large amount of ascites with a peritoneal dialysis catheter in place. 2. Patchy atelectasis in both lower lobes. 3. Hysterectomy and cholecystectomy. 4. No change from previous CT abdomen and pelvis.
--- NOTE | 2020-07-10 16:51 | ECG_ITS ---
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 Measurements Intervals [place] Rate: 63 P: 269 SC: 174 QRS: -63 QRSD: 85 T: 62 QT: 383 QTc: 393 Interpretive Statements ECTOPIC ATRIAL RHYTHM LEFT AXIS DEVIATION [QRS AXIS < -30] LOW QRS VOLTAGE IN PRECORDIAL LEADS [QRS DEFLECTION < 1.0 mV IN CHEST LEADS] INFERIOR MYOCARDIAL INFARCTION , PROBABLY OLD [40+ ms Q WAVE AND/OR ST/T ABNORMALITY IN II/aVF] ANTEROLATERAL MYOCARDIAL INFARCTION , OF INDETERMINATE AGE [40+ ms Q WAVE IN I/aVL/V3-V6] Compared to ECG 07/10/2020 15:00:45 Left-axis deviation now present Low QRS voltage now present Myocardial infarct finding still present Electronically Signed On 07-10-2020 20:19:50 ROAD TEST EXAMINER by Gerald Smith M.D. [id number]
[2020-07-10] MEDS: vancomycin 1,000 MG in sodium chloride 0.9% 250 ML 250 MG IV (16:59)
--- NOTE | 2020-07-10 17:08 | ED_ITS ---
HPI - General Adult General: Chief complaint: Headache Stated complaint: hypotension Time Seen by Provider: 07/10/20 14:45 History of Present Illness: HPI narrative: The patient is a 55-year-old female with end-stage renal disease on peritoneal dialysis, CAD with stenting, type 2 diabetes with left BKA. She has been admitted twice recently for peritonitis in [place]. She comes from [facility] in her wheelchair complaining of dizziness and hypotension. She denies abdominal pain at this time. She does peritoneal dialysis at home nightly. She says she was just discharged from the hospital in [place] and she was told to follow-up with her amphibian crewmember. She went and came to the ER. Blood pressure 82/56 on arrival. She says she has not been eating or drinking much fluids. Severity: severe Associated symptoms: Reports malaise and other (Dizziness); Deny chest pain, confusion, dyspnea, headache(s), rash or palpitations Review of Systems General: Reports: 10 or more systems reviewed and unremarkable except in HPI and below Const: Reports: malaise Eyes: Denies: change in vision, blurry vision or eye redness ENMT: Denies: throat pain, swelling of lips/tongue, ear or mastoid pain or nasal congestion Card: Denies: chest pain, palpitations, irregular heart rhythm, edema, dyspnea on exertion or orthopnea Resp: Denies: dyspnea, productive cough or non-productive cough GI: Denies: abdominal pain, diarrhea or GI cramping : Denies: flank pain, difficulty voiding, urinary frequency or urinary urgency Musc: Denies: neck pain, back pain, extremity pain, joint pain, joint redness, limited range of motion or muscle weakness Skin/Breast: Denies: rash, pruritus, erythema, skin pain or skin tenderness Neuro: Reports: dizziness; Denies: headache(s), numbness in extremities, weakness in extremities, sensory changes, difficulty walking, confusion or Slurred speech present Psych: Denies: anxiety or depression Endo: Denies: polyuria All/Imm: Denies: urticaria, throat swelling or tongue swelling PFSH ED PFSH: Medical History Anxiety CAD (coronary artery disease) Chronic diastolic CHF (congestive heart failure) Compensated currently Chronic kidney disease, stage V Claustrophobia Depression Diabetes Insulin-dependent End stage renal disease ESRD (end stage renal disease) Gastroparesis GERD (gastroesophageal reflux disease) HTN (hypertension) Hyperlipidemia Hypothyroidism Partial nontraumatic amputation of left foot (~06/2019) Peripheral vascular disease TIA (transient ischemic attack) Vitamin D deficiency Surgical History History of appendectomy History of heart artery stent History of hysterectomy History of left heart catheterization History of right below knee amputation Peritoneal dialysis catheter in place S/P cholecystectomy S/P PICC central line placement Status post amputation of toe Family History Denies family history of CAD (coronary artery disease) Clotting disorder Dementia Bleeding disorder Social History Smoking and tobacco status: never smoked Alcohol intake: never Household members: spouse and family History of recent travel: No Physical Exam Const: COMMON NORMALS: no acute distress, average body habitus, patient oriented x3, no limitations, alert and well nourished GENERAL APPEARANCE: cooperative, comfortable, well kempt, well developed and other (Generally weak. No focal weakness) ORIENTATION/CONSCIOUSNESS: Yes awake, Yes oriented to person, Yes oriented to place and Yes oriented to time HENMT: COMMON NORMALS: normocephalic, external ears normal and Normal external nose present HEAD & SCALP: normal to inspection and normocephalic NOSE: Normal external nose present EXTERNAL EAR: Yes external ears normal MOUTH: Normal oral and palatal mucosa present THROAT: posterior oropharynx normal Eye: COMMON NORMALS: Equal, round and reactive pupils present and EOMs intact bilaterally GENERAL EYE: appearance normal, both eyes and all related structures PUPIL: Yes Equal, round and reactive pupils present Neck/C-Spine: COMMON NORMALS: full ROM, no lymphadenopathy, no meningeal signs and no JVD GENERAL: Yes normal visual inspection Lymph: LYMPHATIC: no lymphadenopathy noted Chest: COMMONS NORMALS: normal inspection of the chest and normal palpation of entire chest wall Resp: COMMON NORMALS: normal respiratory effort, No retractions, No use of accessory muscles, clear to auscultation bilaterally and percussion normal EFFORT & INSPECTION: Yes able to speak in complete sentences AUSCULTATION: clear to auscultation bilaterally PERCUSSION: percussion normal Cardio: COMMON NORMALS: no JVD, regular rate, regular rhythm, S1 normal heart sound present, S2 normal heart sound present and Peripheral pulses 2+ throughout RATE: regular rate RHYTHM: regular rhythm HEART SOUNDS: S1 normal heart sound present and S2 normal heart sound present PERIPHERAL PULSES: Peripheral pulses 2+ throughout GI: COMMON NORMALS: Normal to inspection, nondistended, normoactive bowel sounds present, Soft to palpation, non-tender and no masses INSPECTION: Yes normal to inspection PALPATION: Yes Soft to palpation : COMMON NORMALS: Yes no CVA tenderness BLADDER/KIDNEY EXAM: Yes no CVA tenderness Back/Pelvis: COMMON NORMALS: no CVA tenderness, thoracic and lumbar spine normal to inspection, no thoracic nor lumbar tenderness and thoraco-lumbar ROM normal Extremity: COMMON NORMALS: normal to inspection, full ROM, capillary refill normal, no joint enlargement and no pedal edema GENERAL: Yes normal exam except as noted Neuro: COMMON NORMALS: patient oriented x3, CN's II-XII intact bilaterally, moves all extremities, no focal motor deficits, no sensory deficits noted and gait normal SENSORIUM/ORIENTATION: Yes alert, Yes oriented to person, Yes oriented to place and Yes oriented to time MENINGEAL SIGNS: Yes no meningeal signs Psych: COMMON NORMALS: mental status grossly normal, Normal thought process present, cooperative, normal affect and speech normal APPEARANCE: Yes well kempt ATTITUDE: Yes calm SPEECH: Yes normal speech THOUGHT PROCESS: Normal thought process present Skin: COMMON NORMALS: no rashes or lesions noted GENERAL SKIN EXAM: no rashes or lesions noted Course Vital Signs: Vital signs: Vital Signs Temperature 97.9 F 07/10/20 14:21 Pulse Rate 68 07/10/20 17:01 Respiratory Rate 16 07/10/20 17:01 Blood Pressure 92/61 07/10/20 17:01 Pulse Oximetry 98 07/10/20 17:01 MDM - General Adult MDM Narrative: Medical decision making narrative: The patient came in hypotensive. She has not eaten or drank anything in a day or 2. She is likely hypotensive and dehydrated. She was given a 500 cc bolus which did improve her pressure from 87/56 92/61. She was started on Vanco and Zosyn empirically for a possible septic cause of her hypotension. The patient has many lab abnor malities with elevated troponin, creatinine. Hyponatremia. These appear to be around her baseline. elevated BNP is lower than her usual consistent with dehydration. Her blood pressure improved slightly with a 500 cc bolus. Discussed with Dr. Conner who accepts for admission. Lab Data: Labs: Lab Results 07/10/20 07/10/20 07/10/20 Range/Units 15:07 15:07 15:07 WBC 9.8 (4.0-10.0) 10^3/ uL RBC 3.79 L (4.1-5.3) 10^6/u L Hgb 12.2 (11.5-15.3) g/dL Hct 36.5 L (37.0-47.0) % MCV 96.3 (81-99) fL MCH 32.2 (28.0-34.0) pg MCHC 33.4 (30.0-36.0) g/dL RDW 12.6 (12.1-15.1) % Plt Count 351 (130-400) 10^3/c mm MPV 11.6 H (7.4-10.4) fL Neut % (Auto) 68.6 % Lymph % (Auto) 17.3 % [place] % (Auto) 7.3 % Eos % (Auto) 4.8 % Baso % (Auto) 1.2 % Neut # (Auto) 6.74 (1.8-7.7) 10^3/u L Lymph # (Auto) 1.7 (0.8-4.8) 10^3/u L [place] # (Auto) 0.7 (0.2-0.9) 10^3/u L Eos # (Auto) 0.5 (0.0-0.8) 10^3/u L Baso # (Auto) 0.1 (0.0-0.1) 10^3/u L Nucleated RBC % (a uto) 0 % Nucleated RBCs # 0.0 /100WBC PT Cancelled INR Cancelled Sodium 129 L (136-145) mmol/L Potassium 4.2 (3.5-5.1) mmol/L Chloride 86 L (98-107) mmol/L Carbon Dioxide 28 (22-29) mmol/L Anion Gap 19.2 H (5-19) BUN 26 H (6-20) mg/dL Creatinine 6.4 H* (0.5-0.9) mg/dL GFR Calculation 6.7 L (90-130) mL/min Glucose 244 H (65-115) mg/dL Calculated Osmolal ity 281 L (285-295) mOsm/k g Lactate (0.5-2.2) mmol/L Calcium 10.1 (8.5-10.5) mg/dL Phosphorus 4.8 H (2.5-4.5) mg/dL Magnesium 1.8 (1.7-2.3) mg/dL Total Bilirubin 0.5 (0.15-1.2) mg/dL AST 12 (0-32) U/L ALT 12 (0-33) U/L Alkaline Phosphata se 148 H (35-105) IU/L Troponin T Baselin e (0-10) ng/L NT-Pro-B Natriuret Pep 2279 H (0-125) pg/mL Total Protein 6.5 L (6.6-8.7) g/dL Albumin 3.1 L (3.5-5.2) g/dL Globulin 3.4 (1.3-4.6) g/dL 07/10/20 07/10/20 07/10/20 Range/Units 15:07 15:07 16:30 WBC (4.0-10.0) 10^3/ uL RBC (4.1-5.3) 10^6/u L Hgb (11.5-15.3) g/dL Hct (37.0-47.0) % MCV (81-99) fL MCH (28.0-34.0) pg MCHC (30.0-36.0) g/dL RDW (12.1-15.1) % Plt Count (130-400) 10^3/c mm MPV (7.4-10.4) fL Neut % (Auto) % Lymph % (Auto) % [place] % (Auto) % Eos % (Auto) % Baso % (Auto) % Neut # (Auto) (1.8-7.7) 10^3/u L Lymph # (Auto) (0.8-4.8) 10^3/u L [place] # (Auto) (0.2-0.9) 10^3/u L Eos # (Auto) (0.0-0.8) 10^3/u L Baso # (Auto) (0.0-0.1) 10^3/u L Nucleated RBC % (a uto) % Nucleated RBCs # /100WBC PT 14.50 INR 1.09 Sodium (136-145) mmol/L Potassium (3.5-5.1) mmol/L Chloride (98-107) mmol/L Carbon Dioxide (22-29) mmol/L Anion Gap (5-19) BUN (6-20) mg/dL Creatinine (0.5-0.9) mg/dL GFR Calculation (90-130) mL/min Glucose (65-115) mg/dL Calculated Osmolal ity (285-295) mOsm/k g Lactate 3.0 H (0.5-2.2) mmol/L Calcium (8.5-10.5) mg/dL Phosphorus (2.5-4.5) mg/dL Magnesium (1.7-2.3) mg/dL Total Bilirubin (0.15-1.2) mg/dL AST (0-32) U/L ALT (0-33) U/L Alkaline Phosphata se (35-105) IU/L Troponin T Baselin e 154 H* (0-10) ng/L NT-Pro-B Natriuret Pep (0-125) pg/mL Total Protein (6.6-8.7) g/dL Albumin (3.5-5.2) g/dL Globulin (1.3-4.6) g/dL Discharge Plan Discharge Patient Disposition: Admitted As Inpatient Clinical Impression: Acute hypotension, End stage kidney disease, Elevated troponin, Acute h yponatremia, Dizziness Condition: Stable Coding Level of Care Code ED Vice President Planning for Maris Fwd Exam Comprehensive
--- NOTE | 2020-07-10 17:12 | PC.NURSE ---
EKG done at 1710 and shown to ER doctor
[2020-07-10 17:52] LABS: INR 1.09 (0.8-1.2)
[2020-07-10 18:25] LABS: Troponin 5 2HR 148.4 ng/L (0-10); Troponin 5 2HR Delta -5.6 ABS# (0-10)
--- NOTE | 2020-07-10 18:26 | P.HP_ITS ---
Providers/Chief Complaint Primary Care Provider: Yovany Leonardo MD Chief Complaint: hypotension History of Present Illness Rizwana Herzog is a 55 year old female with PMH of end-stage renal disease on peritoneal dialysis, hypertension, insulin-dependent diabetes mellitus type 2 status post right below-knee amputation and known history of coronary artery disease status post PCI to LAD on 03 Nov 2018 at [facility]. She also has anemia of end-stage renal disease, hypothyroidism, depression/anxiety, gastroesophageal reflux disease, peripheral vascular disease status post left foot toe amputation, diastolic congestive heart failure and hyperlipidemia. She was recently discharged from [facility] after being treated for peritonitis and wass told to follow u with her account development manager.She was seeing her account development manager today and was complaining of dizziness as well as low b/p in the cardiology clinic her B/P was 80/58 mmHg.She was sent to ER for further managment. ER Course : CT abdomen pelvis wo con:Large amount of ascites with a peritoneal dialysis catheter in place. Patchy atelectasis in both lower lobes. No change from previous CT abdomen and pelvis. XR chest: No nodules, masses or effusions are seen.The pulmonary vascularity is not increased. No pneumonia or pneumothorax is seen. Pertinent Labs: WBC : 9.8, H/H: 12/36 Na: 129, k :4.2 , Lactic acid : 3 Troponin : Baseline :154, 2H : 148, Delta 2H: -5.6 , Pro BNP: 2279 ECA Medications: She received a dose Van and Zosyn as well as was bloused with 500CC N.S. Post Bolus her B/P Is : 110/83 Review of Systems Const: Denies: fever(s), chills, body aches, change in appetite or diaphoresis Card: Denies: palpitations, edema or orthopnea Resp: Denies: dyspnea, productive cough, wheezing or pain on inspiration GI: Denies: abdominal pain, diarrhea or constipation : Denies: flank pain Musc: Denies: back pain, extremity pain or extremity swelling Neuro: Denies: headache(s), difficulty walking or confusion Medications/Allergies Home Medications Medication Instructions Recorded Confirmed Last Taken Type aspirin 81 mg PO DAILY@06/25/19 07/10/20 07/09/20 History multivitamin [Multiple Vitamins] 1 tab PO DAILY@06/30/19 07/10/20 07/09/20 History ferric citrate 210 mg iron tablet See Rx Instructions .ROUTE 09/06/19 07/10/20 07/09/20 History .COMPLEX tab coenzyme Q10 [CoQ-10] 100 mg PO DAILY@08 01/17/20 07/10/20 07/10/20 History omega 6-ymz-xec-fish oil [Fish Oil] 1 cap PO BID@01/17/20 07/10/20 07/09/20 History brimonidine 1 drp OPHTHALMIC (EYE) BID@01/31/20 07/10/20 07/09/20 History dorzolamide-timolol 1 drp OPHTHALMIC (EYE) BID@01/31/20 07/10/20 07/10/20 History pantoprazole 40 mg PO DAILY@02/16/20 07/10/20 07/09/20 History nitroglycerin 0.4 mg sublingual 0.4 mg SUBLINGUAL Q5M PRN #25 tab 03/26/20 07/10/20 04/18/20 Rx tablet Rocklatan 1 drp OPHTHALMIC (EYE) DAILY@04/18/20 07/10/20 07/09/20 History sennosides-docusate sodium 2 tab PO BID PRN 04/18/20 07/10/20 04/28/20 History sevelamer carbonate 800 mg PO TID 04/29/20 07/10/20 07/09/20 History atorvastatin 40 mg PO DAILY@05/14/20 07/10/20 07/09/20 History cholecalciferol (vitamin D3) 25 mcg PO DAILY@05/14/20 07/10/20 07/09/20 History [Vitamin D3] paricalcitol 1 mcg capsule 1 mcg PO DAILY cap 05/22/20 07/10/20 07/09/20 History insulin glargine 100 unit/mL (3 50 unit SUBCUT BID@ #15 ml 06/17/20 07/10/20 07/09/20 Rx mL) subcutaneous pen clopidogrel 75 mg PO DAILY@07/10/20 07/10/20 07/10/20 History levothyroxine 224 mcg PO DAILY@79907/10/20 07/10/20 07/09/20 History midodrine 5 mg PO TID@08,,07/10/20 07/10/20 07/09/20 History potassium chloride 10 meq PO DAILY@08 07/10/20 07/10/20 07/09/20 History Allergies Allergy/AdvReac Type Severity Reaction Status Date / Time metformin [From Glucophage] Allergy Severe Unknown Verified 07/10/20 14:25 venlafaxine [From Effexor] Allergy Severe ADR-Shakine Verified 07/10/20 14:25 ss PFSH Acute PFSH: Medical History Anxiety CAD (coronary artery disease) Chronic diastolic CHF (congestive heart failure) Compensated currently Chronic kidney disease, stage V Claustrophobia Depression Diabetes Insulin-dependent End stage renal disease ESRD (end stage renal disease) Gastroparesis GERD (gastroesophageal reflux disease) HTN (hypertension) Hyperlipidemia Hypothyroidism Partial nontraumatic amputation of left foot (~06/2019) Peripheral vascular disease TIA (transient ischemic attack) Vitamin D deficiency Surgical History History of appendectomy History of heart artery stent History of hysterectomy History of left heart catheterization History of right below knee amputation Peritoneal dialysis catheter in place S/P cholecystectomy S/P PICC central line placement Status post amputation of toe Family History Denies family history of CAD (coronary artery disease) Clotting disorder Dementia Bleeding disorder Social History Smoking and tobacco status: never smoked Alcohol intake: never Household members: spouse and family History of recent travel: No Vitals/I&O/Wt Last Vital Signs Temp 97.9 F 07/10/20 14:21 Pulse 68 07/10/20 17:01 Resp 16 07/10/20 17:01 BP 92/61 07/10/20 17:01 Pulse Ox 98 07/10/20 17:01 Weight last 48 hrs Weight 83.915 kg Physical Exam Const: COMMON NORMALS: patient oriented x3 HENMT: COMMON NORMALS: normocephalic and atraumatic HEAD & SCALP: normocephalic and atraumatic Resp: COMMON NORMALS: clear to auscultation bilaterally EFFORT & INSPECTION: Yes symmetric chest movement AUSCULTATION: clear to auscultation bilaterally Cardio: COMMON NORMALS: regular rate, regular rhythm, S1 normal heart sound present, S2 normal heart sound present, No gallops present (Cardio), No murmurs present (Cardio), No rub (Cardio) and Peripheral pulses 2+ throughout RATE: regular rate RHYTHM: regular rhythm HEART SOUNDS: S1 normal heart sound present and S2 normal heart sound present PERIPHERAL PULSES: Peripheral pulses 2+ throughout GI: COMMON NORMALS: Normal to inspection, nondistended, normoactive bowel sounds present, Soft to palpation, non-tender, No hepatosplenomegaly present and no masses AUSCULTATION: Yes normoactive bowel sounds PALPATION: Yes Soft to palpation and Yes No hepatosplenomegaly present RECTAL EXAM: deferred Extremity: COMMON NORMALS: no clubbing, cyanosis or edema and no pedal edema NARRATIVE EXTREMITY EXAM: Rt Knee BKA Neuro: COMMON NORMALS: patient oriented x3 Data : 07/10/20 15:07 07/10/20 15:07 A&P Assessment and plan (1) Acute hypotension: Likely 2/2 to Poor oral intake. Has Responded well to 500 cc I.V Normal saline Will continue Gently Hydration N.S 50 CC/HR Encourage PO intake Continue Midodrine 5MG PO TID Status: Acute (2) Dizziness: Status: Acute (3) Elevated troponin: Status: Acute (4) Elevated lactic acid level: Status: Acute (5) Hyponatremia: Status: Acute (6) End stage kidney disease: Status: Acute (7) Chronic diastolic CHF (congestive heart failure): Status: Acute (8) CAD (coronary artery disease): Status: Chronic Qualifiers: Associated angina: without angina Coronary Disease-Associated Artery/Lesion type: [place] artery [place] vs. transplanted heart: rampart heart Qualified Code(s): I25.10 - Atherosclerotic heart disease of [place] coronary artery without angina pectoris (9) Insulin dependent diabetes mellitus: Status: Acute (10) HTN (hypertension): Status: Acute (11) Peripheral vascular disease: Status: Acute (12) BPPV (benign paroxysmal positional vertigo): Status: Acute Additional A&P Information Code Status:Full code DVT PPX: Heparin Disposition :Home Attestations Medical Necessity Statement*: Patient needs to be in hosital for the management of hypotension and Dizziness. Coding Level of Care Code Acute Mat Cleaning Machine Operator for Chg Fwd Exam Detailed Diagnoses Acute hypotension I95.9 Dizziness R42 Elevated troponin R77.8 Elevated lactic acid level R79.89 Hyponatremia E87.1 End stage kidney disease N18.6 Chronic diastolic CHF (congestive heart failure) I50.32 CAD (coronary artery disease) I25.10 Associated angina: without angina Coronary Disease-Associated Artery/Lesion type: [place] artery [place] vs. transplanted heart: rampart heart Insulin dependent diabetes mellitus HTN (hypertension) I10 Peripheral vascular disease I73.9 BPPV (benign paroxysmal positional vertigo) H81.10
[2020-07-10] MEDS: piperacillin-tazobactam 3.375 GM in sodium chloride 0.9% (plus) 50 ML IV (18:46)
[2020-07-10] MEDS: heparin 5,000 unit/mL INJ 1 mL 5000 UNIT SUBCUT (20:01)
[2020-07-10] MEDS: sodium chloride 0.9% 1,000 ML 50 ML IV (20:01)
--- NOTE | 2020-07-10 20:51 | ECG_ITS ---
[facility] Test Date: 2020-07-10 Pat Name: Rizwana Herzog Department: Room: 252 Gender: Female Accounting Director: : 1965 Requested By: Binh Hopkins Order Number: [id number] Catherine MD: Soraya Ignacio M.D. Measurements Intervals [place] Rate: 65 P: -80 CT: 188 QRS: -53 QRSD: 90 T: 34 QT: 382 QTc: 397 Interpretive Statements ECTOPIC ATRIAL RHYTHM LOW QRS VOLTAGE IN EXTREMITY LEADS [QRS DEFLECTION < 0.5 mV IN LIMB LEADS] POSSIBLE ANTERIOR MYOCARDIAL INFARCTION [30 ms Q WAVE IN V3/V4, OR R < 0.2 mV IN V4], PROBABLY OLD INFERIOR MYOCARDIAL INFARCTION [40+ ms Q WAVE AND/OR ST/T ABNORMALITY IN II/aVF], PROBABLY OLD Compared to ECG 07/10/2020 17:08:40 Left-axis deviation no longer present Myocardial infarct finding still present Electronically Signed On 07-11-2020 20:31:12 HEAD GRINDER by Soraya Ignacio M.D. [id number]
[2020-07-10 21:14] LABS: Troponin 5 6HR 152.6 ng/L (0-10); Troponin 5 6HR Delta -1.4 ng/L (0-12)
[2020-07-10 21:32] LABS: Glucose Point of Care 129 mg/dL (70-110)
[2020-07-10] MEDS: omega-3 fatty acids 1,000 mg Capsule 1 MG PO (21:33)
[2020-07-10] MEDS: sevelamer 800 mg Tablet PO (21:33)
[2020-07-10] MEDS: dorzolamide/timolol Op Soln 10 mL Btl 1 DROP EYE-BOTH (21:35)
[2020-07-10] MEDS: brimonidine 0.2% Op Soln 5 mL Btl 1 DROP EYE-BOTH (21:35)
[2020-07-10] MEDS: atorvastatin 40 mg Tablet PO (21:35)
[2020-07-10] MEDS: midodrine 5 mg TABLET PO (21:35)
[2020-07-11] VITALS (7 sets, daily range): BP systolic 92–120; BP diastolic 61–80; PULSE 62–73; RESP 16–18; TEMP 36.6–36.9; O2SAT 95–98
[2020-07-11] MEDS: acetaminophen 325 mg Tablet 650 MG PO (04:13)
[2020-07-11 06:33] LABS: Glucose Point of Care 127 mg/dL (70-110)
[2020-07-11] MEDS: piperacillin-tazobactam 3.375 GM in sodium chloride 0.9% (plus) 50 ML IV ×2 (06:38→21:06)
[2020-07-11] MEDS: heparin 5,000 unit/mL INJ 1 mL 5000 UNIT SUBCUT ×2 (06:38→17:35)
[2020-07-11 06:47] LABS: Basophils # 0.1 10^3/uL (0.0-0.1); Basophils % 1.2 %; Eosinophils # 0.6 10^3/uL (0.0-0.8); Eosinophils % 7.6 %; Hemoglobin 10.8 g/dL (11.5-15.3); Lymphocytes # 2.3 10^3/uL (0.8-4.8); Lymphocytes % 31.9 %; Mean Corpuscular HGB Conc 32.7 g/dL (30.0-36.0); Mean Corpuscular Hemoglobin 31.8 pg (28.0-34.0); Mean Corpuscular Volume 97.1 fL (81-99); Mean Platelet Volume 11.7 fL (7.4-10.4); Monocytes # 0.6 10^3/uL (0.2-0.9); Monocytes % 8.3 %; Neutrophils # 3.65 10^3/uL (1.8-7.7); Neutrophils % 50.3 %; Nucleated Red Blood Cells % 0 %; Platelet Count 299 10^3/cmm (130-400); Red Cell Distribution Width 12.7 % (12.1-15.1); White Blood Count 7.3 10^3/uL (4.0-10.0)
[2020-07-11 07:16] LABS: Alanine Aminotransferase 10 U/L (0-33); Albumin Level 2.9 g/dL (3.5-5.2); Alkaline Phosphatase 124 IU/L (35-105); Anion Gap 16.9 (5-19); Aspartate Amino Transferase 11 U/L (0-32); Blood Urea Nitrogen 30 mg/dL (6-20); Calcium 9.4 mg/dL (8.5-10.5); Carbon Dioxide 27 mmol/L (22-29); Chloride 91 mmol/L (98-107); Globulin 2.7 g/dL (1.3-4.6); Glucose 115 mg/dL (65-115); Magnesium 1.7 mg/dL (1.7-2.3); Osmolality Calculated 279 mOsm/kg (285-295); Phosphorus 4.9 mg/dL (2.5-4.5); Potassium 3.9 mmol/L (3.5-5.1); Sodium 131 mmol/L (136-145); Total Bilirubin 0.4 mg/dL (0.15-1.2); Total Protein 5.6 g/dL (6.6-8.7)
[2020-07-11 07:49] LABS: NT Pro B Type Natriuretic Pept 1969 pg/mL (0-125); Procalcitonin 0.46 ng/mL (0-0.5)
--- NOTE | 2020-07-11 10:34 | PC.CHAP ---
Pastoral Care Encounter/Spiritual Assessment Type of Contact [] Declined sampler pickup visit [] Patient/Family/Request visit [] Outpatient visit [x] Follow-up visit [] Physician referral [] Code/Alert [] Routine visit [] Staff referral [] Actively dying [] Patient sleeping [] Family support [] [] Out of room [] Palliative care [] [] Receiving care in room [] Pre-surgical visit [] Trauma [x] Long length of stay [] ICU visit [] Other: Relational/Emotional Strength [] Patient feels connected with others/family/visitors/staff [] Distress [] Loneliness/isolation [] Abandonment Spirituality of Patient [] Person of [place] [] Attends Protestant of their [place] [] Believes in Prayer [] Reads Bible or Pentecostalism materials [] There are Spiritual issues to be addressed Deportation Officer Interventions [] Prayer [] Active listening [] Non-anxious presence [] Spiritual/emotional support [] Crisis/trauma care [] Spiritual counseling [] Bereavement support [] Provided bereavement packet [] Provided Bible/devotional materials [] Provided toy/stuffed animal, coloring book to patient or family member [] Provided Communion [] Anointing/[place] [] Salvation [] Completed spiritual assessment [] Other: Impact on Illness or Injury [] Angry [] Fearful [] Anxious [] Often cries [] Exhaustion [] Unable to work [] Unable to attend scientologist [] Unable to walk/stand [] Unable to read [] Unable to drive [] Unable to eat/drink [] Unable to sleep [] Unable to be with family [] Patient intubated [] Other: Summary Follow-up visit Time spent with patient 5 mins
[2020-07-11] MEDS: midodrine 5 mg TABLET PO ×3 (11:52→21:07)
[2020-07-11] MEDS: omega-3 fatty acids 1,000 mg Capsule 1 MG PO ×2 (11:52→21:07)
[2020-07-11] MEDS: pantoprazole DR 40 mg Tablet PO (11:53)
[2020-07-11] MEDS: sevelamer 800 mg Tablet PO ×3 (11:53→21:07)
[2020-07-11] MEDS: aspirin 81 mg Chew Tablet PO (11:54)
[2020-07-11] MEDS: multivitamin therapeutic Tablet 1 TAB PO (11:54)
[2020-07-11] MEDS: clopidogrel 75 mg Tablet PO (11:54)
[2020-07-11] MEDS: dorzolamide/timolol Op Soln 10 mL Btl 1 DROP EYE-BOTH ×2 (11:55→21:08)
[2020-07-11] MEDS: levothyroxine 112 mcg Tablet 224 MCG PO (11:55)
[2020-07-11] MEDS: cholecalciferol (vitamin D3) 1,000 unit Tablet 1000 UNIT PO (11:55)
[2020-07-11] MEDS: brimonidine 0.2% Op Soln 5 mL Btl 1 DROP EYE-BOTH ×2 (11:55→21:08)
[2020-07-11 12:09] LABS: Glucose Point of Care 130 mg/dL (70-110)
--- NOTE | 2020-07-11 12:55 | P.PN_ITS ---
Vitals/I&O/Wt Last Vital Signs Temp 98.1 F 07/11/20 11:13 Pulse 73 07/11/20 11:13 Resp 17 07/11/20 11:13 BP 108/73 07/11/20 11:13 Pulse Ox 96 07/11/20 11:13 07/10/20 07/11/20 07/11/20 22:59 06:59 14:59 Intake Total 1000 / 1000 50 / 50 Output Total 0 / 0 Balance 1000 / 1000 0 / 1000 50 / 50 Weight last 48 hrs Weight 102.285 kg Weight 83.915 kg Physical Exam Const: COMMON NORMALS: patient oriented x3 HENMT: COMMON NORMALS: normocephalic and atraumatic HEAD & SCALP: normocephalic and atraumatic Resp: COMMON NORMALS: clear to auscultation bilaterally EFFORT & INSPECTION: Yes symmetric chest movement AUSCULTATION: clear to auscultation bilaterally Cardio: COMMON NORMALS: regular rate, regular rhythm, S1 normal heart sound present, S2 normal heart sound present, No gallops present (Cardio), No murmurs present (Cardio), No rub (Cardio) and Peripheral pulses 2+ throughout RATE: regular rate RHYTHM: regular rhythm HEART SOUNDS: S1 normal heart sound present and S2 normal heart sound present PERIPHERAL PULSES: Peripheral pulses 2+ throughout GI: COMMON NORMALS: Normal to inspection, nondistended, normoactive bowel sounds present, Soft to palpation, non-tender, No hepatosplenomegaly present and no masses AUSCULTATION: Yes normoactive bowel sounds PALPATION: Yes Soft to palpation and Yes No hepatosplenomegaly present RECTAL EXAM: deferred Extremity: COMMON NORMALS: no clubbing, cyanosis or edema and no pedal edema NARRATIVE EXTREMITY EXAM: Rt Knee BKA Neuro: COMMON NORMALS: patient oriented x3 Data : 07/11/20 05:46 07/11/20 05:46 Micro: Microbiology 07/10/20 19:40 Blood Culture - Preliminary Blood SPECIMEN COLLECTED 07/10/20 19:38 Blood Culture - Preliminary Blood SPECIMEN COLLECTED A&P Assessment and plan (1) Acute hypotension: Likely 2/2 to Poor oral intake.Will r/o Infection though low on suspicion /Partial adrenal insufficiency Has Responded well to 500 cc I.V Normal saline Encourage PO intake Continue Midodrine 5MG PO TID P.D fluid for cell count, cx, and gram stain Am cortisol Continue Zosyn for now Continue Van Status: Acute (2) End stage kidney disease: CAPD per Renal Status: Acute (3) Dizziness: Status: Acute (4) Elevated troponin: Status: Acute (5) Elevated lactic acid level: Status: Acute (6) Hyponatremia: Status: Acute (7) Chronic diastolic CHF (congestive heart failure): Status: Acute (8) CAD (coronary artery disease): Status: Chronic Qualifiers: Coronary Disease-Associated Artery/Lesion type: [place] artery [place] vs. transplanted heart: [place] heart Associated angina: without angina Qualified Code(s): I25.10 - Atherosclerotic heart disease of [place] coronary artery without angina pectoris (9) Insulin dependent diabetes mellitus: Status: Acute (10) HTN (hypertension): Status: Acute (11) Peripheral vascular disease: Status: Acute (12) BPPV (benign paroxysmal positional vertigo): Status: Acute Additional A&P Information Code Status:Full code DVT PPX: Heparin Disposition : Home will DC in am as her B/P is fine and clinical suspicion for infection is low.She can follow renal as outpatient to complete possible relative adrenal insufficiency work up.If needed will increase the midodrine dose. Attestations Medical Necessity Statement*: Patient needs to be in hospital for the management of Hypotension, CAPD. Coding Level of Care Code Acute Bankruptcy Judge for Chg Fwd Diagnoses Acute hypotension I95.9 End stage kidney disease N18.6 Dizziness R42 Elevated troponin R77.8 Elevated lactic acid level R79.89 Hyponatremia E87.1 Chronic diastolic CHF (congestive heart failure) I50.32 CAD (coronary artery disease) I25.10 Coronary Disease-Associated Artery/Lesion type: [place] artery [place] vs. transplanted heart: [place] heart Associated angina: without angina Insulin dependent diabetes mellitus HTN (hypertension) I10 Peripheral vascular disease I73.9 BPPV (benign paroxysmal positional vertigo) H81.10
[2020-07-11 13:51] LABS: Add Urine Microscopic? YES; Bilirubin Urine 1+ (Negative); Blood Urine 2+ (Negative); Glucose Urine UA 4+ (Normal); Ketones Urine Negative (Negative); Leukocyte Esterase Urine 2+ (Negative); Nitrate Urine Negative (Negative); Protein Urine 3+ (Negative); Specific Gravity, Urine 1.015 (1.005-1.030); Urine Appearance Hazy (CLEAR); Urine Color Yellow (Yellow); Urobilinogen Urine Norm (Negative); WBC Urine >100 /hpf (0-5); pH Urine 5 (5-7)
[2020-07-11 13:52] LABS: Bacteria Urine 2+ /hpf; Squamous Epithelial Cell Urine 25-40 /hpf (0-5)
--- NOTE | 2020-07-11 14:58 | P.CONIM_ITS ---
Providers/Reason For Consult Consulting Physican/Specialty*: christelle bullard md / telenephrology Reason for Consult*: ESRD care Attending Physician: Joe Conner MD Primary Care Provider: Yovany Leonardo MD History of Present Illness History of Present Illness Rizwana Herzog is a 55 year old female admitted yesterday w/ hypotension- given fluids and improved. pt remains weak and lightheaded. hx includes, ESRD on CCPD- recent peritonitis at [facility] and readmission last week for DM gastroparesis. pt went to see Dr. Ignacio of cardiology yesterday and found to be hypotensive- sent to ER- admitted for Abx and ivf. renal called for PD orders. h/o CAD, PVD, IDDM, htn, RT BKA, left toe amps, hypothyroidism, depression/ anxiety, Q of adrenal insufficinecy, anemia, TIA, vit d def Review of Systems General: Reports: 10 or more systems reviewed and unremarkable except in HPI and below Narrative: weak, lightheaded, hypotensive, no fevers, + poor vision, no sob, no cp, + n/v, no diarrhea, no cp, + [place], + depressed, + weak Meds/Allergies Home Medications and Allergies Home Medications Medication Instructions Recorded Confirmed Last Taken Type aspirin 81 mg PO DAILY@06/25/19 07/10/20 07/09/20 History multivitamin [Multiple Vitamins] 1 tab PO DAILY@06/30/19 07/10/20 07/09/20 History ferric citrate 210 mg iron tablet See Rx Instructions .ROUTE 09/06/19 07/10/20 07/09/20 History .COMPLEX tab coenzyme Q10 [CoQ-10] 100 mg PO DAILY@01/17/20 07/10/20 07/10/20 History omega 4-qrt-bcr-fish oil [Fish Oil] 1 cap PO BID@01/17/20 07/10/20 07/09/20 History brimonidine 1 drp OPHTHALMIC (EYE) BID@01/31/20 07/10/20 07/09/20 History dorzolamide-timolol 1 drp OPHTHALMIC (EYE) BID@01/31/20 07/10/20 07/10/20 History pantoprazole 40 mg PO DAILY@02/16/20 07/10/2021 History nitroglycerin 0.4 mg sublingual 0.4 mg SUBLINGUAL Q5M PRN #25 tab 03/26/20 07/10/20 04/18/20 Rx tablet Rocklatan 1 drp OPHTHALMIC (EYE) DAILY@04/18/20 07/10/20 07/09/20 History sennosides-docusate sodium 2 tab PO BID PRN 04/18/20 07/10/20 04/28/20 History sevelamer carbonate 800 mg PO TID 04/29/20 07/10/20 07/09/20 History atorvastatin 40 mg PO DAILY@05/14/20 07/10/20 07/09/20 History cholecalciferol (vitamin D3) 25 mcg PO DAILY@05/14/20 07/10/20 07/09/20 History [Vitamin D3] paricalcitol 1 mcg capsule 1 mcg PO DAILY cap 05/22/20 07/10/20 07/09/20 History insulin glargine 100 unit/mL (3 50 unit SUBCUT BID@ #15 ml 06/17/20 07/10/20 07/09/20 Rx mL) subcutaneous pen clopidogrel 75 mg PO DAILY@07/10/20 07/10/20 07/10/20 History levothyroxine 224 mcg PO DAILY@0807/10/20 07/10/20 07/09/20 History midodrine 5 mg PO TID@07/10/20 07/10/20 07/09/20 History potassium chloride 10 meq PO DAILY@07/10/20 07/10/20 07/09/20 History Allergies Allergy/AdvReac Type Severity Reaction Status Date / Time metformin [From Glucophage] Allergy Severe Unknown Verified 07/10/20 14:25 venlafaxine [From Effexor] Allergy Severe ADR-Shakine Verified 07/10/20 14:25 ss Current Medications Current Medications Generic Name Dose Route Start Last Admin Trade Name Freq PRN Reason Stop Dose Admin Acetaminophen 650 mg 07/10/20 18:15 07/11/20 04:13 Acetaminophen 325 Mg Tablet PO 650 mg Q6H PRN Administration Mild/Mod Pain Or Temp >/= 101 Aspirin 81 mg 07/11/20 08:00 07/11/20 11:54 Aspirin 81 Mg Chew Tablet PO 81 mg DAILY@08 JERSON Administration Atorvastatin Calcium 40 mg 07/10/20 20:00 07/10/20 21:35 Atorvastatin 40 Mg Tablet PO 40 mg DAILY@20 JERSON Administration Brimonidine Tartrate 1 drop 07/10/20 20:00 07/11/20 11:55 Brimonidine 0.2% Op Soln 5 Ml Btl EYE-BOTH 1 drop BID@ JERSON Administration Clopidogrel Bisulfate 75 mg 07/11/20 08:00 07/11/20 11:54 Clopidogrel 75 Mg Tablet PO 75 mg DAILY@08 JERSON Administration Dorzolamide/Timolol 1 drop 07/10/20 20:00 07/11/20 11:55 Dorzolamide/Timolol Op Soln 10 Ml Btl EYE-BOTH 1 drop BID@ JERSON Administration Heparin Sodium (Beef Lung) 5,000 unit 07/10/20 18:15 07/11/20 06:38 Heparin 5,000 Unit/Ml Inj 1 Ml SUBCUT 5,000 unit Q12H JERSON Administration Sodium Chloride 1,000 mls @ 50 mls/hr 07/10/20 18:15 07/10/20 20:01 Sodium Chloride 0.9% IV 50 mls/hr .Q20H JERSON Administration Piperacillin Sod/Tazobactam 50 mls @ 12.5 mls/hr 07/11/20 07:00 07/11/20 11:56 Sod 3.375 gm/ Sodium Chloride IV Infused Q12H JERSON Infusion Insulin Aspart 0 unit 07/10/20 21:00 07/11/20 11:49 Insulin Aspart 100 Unit/1 Ml SUBCUT Not Given [facility] Protocol Levothyroxine Sodium 224 mcg 07/11/20 08:00 07/11/20 11:55 Levothyroxine 112 Mcg Tablet PO 224 mcg DAILY@0800 JERSON Administration Midodrine 5 mg 07/10/20 20:00 07/11/20 11:52 Midodrine 5 Mg Tablet PO 5 mg TID@ [facility] Administration Multivitamins Therapeutic 1 tab 07/11/20 08:00 07/11/20 11:54 Multivitamin Therapeutic Tablet PO 1 tab DAILY@08 [facility] Administration Non-Formulary Medication 1 drop 07/10/20 20:00 07/10/20 21:13 Netarsudil-Latanoprost [Rocklatan] EYEAFF Not Given DAILY@20 [facility] Non-Formulary Medication 1 mcg 07/11/20 09:00 07/11/20 11:56 Paricalcitol [Zemplar] PO Not Given DAILY [facility] Twlin-0-Rxfx Ethyl Esters 1 mg 07/10/20 20:00 07/11/20 11:52 Port Tobacco-3 Fatty Acids 1,000 Mg Capsule PO 1 mg BID@, [facility] Administration Pantoprazole Sodium 40 mg 07/11/20 08:00 07/11/20 11:[address] 40 Mg Tablet PO 40 mg DAILY@08 [facility] Administration Sevelamer Carbonate 800 mg 07/10/20 21:00 07/11/20 11:53 Sevelamer 800 Mg Tablet PO 800 mg TID [facility] Administration Vitamin D 1,000 unit 07/11/20 08:00 07/11/20 11:55 Cholecalciferol (Vitamin D3) 1,000 Unit Tablet PO 1,000 unit DAILY@08 [facility] Administration PFSH Acute PFSH: Medical History Anxiety CAD (coronary artery disease) Chronic diastolic CHF (congestive heart failure) Compensated currently Chronic kidney disease, stage V Claustrophobia Depression Diabetes Insulin-dependent End stage renal disease ESRD (end stage renal disease) Gastroparesis GERD (gastroesophageal reflux disease) HTN (hypertension) Hyperlipidemia Hypothyroidism Partial nontraumatic amputation of left foot (~06/2019) Peripheral vascular disease TIA (transient ischemic attack) Vitamin D deficiency Surgical History History of appendectomy History of heart artery stent History of hysterectomy History of left heart catheterization History of right below knee amputation Peritoneal dialysis catheter in place S/P cholecystectomy S/P PICC central line placement Status post amputation of toe Family History Denies family history of CAD (coronary artery disease) Clotting disorder Dementia Bleeding disorder Social History Smoking and tobacco status: never smoked Alcohol intake: never Household members: spouse and family History of recent travel: No Vitals/I&O/Wt Last Vital Signs Temp 98.1 F 07/11/20 11:13 Pulse 73 07/11/20 11:13 Resp 17 07/11/20 11:13 BP 108/73 07/11/20 11:13 Pulse Ox 96 07/11/20 11:13 07/10/20 07/11/20 07/11/20 22:59 06:59 14:59 Intake Total 1000 / 1000 170 / 170 Output Total 0 / 0 Balance 1000 / 1000 0 / 1000 170 / 170 Weight last 48 hrs Weight 102.285 kg Weight 83.915 kg Physical Exam Narrative: EXAM NARRATIVE: obese, BP low, afebrile, uncomfortab;e heent- nc/at, poor vision, EOMI neck supple lungs clear heart reg, + s1, d2, +ROBINA abd soft, nt, + distended, + PD catheter and bloody fluyid around exit site ext RT BKA, left toe amp, no edema neuro- a,a, o x 2+ Data Micro: Micro: Microbiology 07/10/20 19:40 Blood Culture - Pr eliminary Blood SPECIMEN [facility] 07/10/20 19:38 Blood Culture - Pr eliminary Blood SPECIMEN [facility] A&P Additional A&P Information 55 yr old female 1. ESRD on CCPD at home- recent periton itis -please call [facility] and get results of PEritonitis bacteria- we need to know if she is having reurrent infections -s/p vanco/ zosyn yesterday -check vanco level -cont CAPD - 4 exchanges a day- 2 l fills, 1.35% gluc -send fluid for cell count, cx, and gram stain -renavite 2. hypotension- Q infection, consider echo r/o pericardial effusion -check cortisol level- concern for partial adrenal insufficiency 3. DM control and DM gastroparesis per medicine 4. hypoantremia- monitor w/ PD 5. phos okay -avoid ca based binders -check vit d levels and pth 6/ u/a was dirty w/ sq epi cells- 25-40/HPF discussed w/ pt, RN and Dr. Cnoner Consult Attestations Medical Necessity Statement: recent peritonitis, ESRD, hypotension, hypothyroidism Time Spent in Patient Care: Greater than 35 minutes Coding Level of Care Code Acute Air Quality Specialist for Chg Fwparth
[2020-07-11 16:33] LABS: Glucose Point of Care 127 mg/dL (70-110)
[2020-07-11] MEDS: heparin 5,000 unit/mL INJ 1 mL 2000 UNIT INJECTION ×2 (17:34→21:09)
[2020-07-11] MEDS: Dianeal low Ca w/1.5% dex 2,000 mL Bag 2000 ML INTRAPERIT (17:36)
[2020-07-11 18:52] LABS: Thyroid Stimulating Hormone 11.94 uIU/mL (0.27-4.20)
[2020-07-11 18:54] LABS: Cortisol Random 15.96 ug/dL (2.47-19.5); Hepatitis B Surface AB 8.9 (0-8.5); Hepatitis C Virus Antibody Non-Reactive (Nonreactive)
[2020-07-11 19:55] LABS: Mononuclear #, Pertinoneal Fl 0.046 10^3/uL; Polynuclear # Cells, Perit 0.001 10^3/uL
[2020-07-11 20:08] LABS: Appearance, Peritoneal Fluid Clear (Clear); Color, Peritoneal Fluid Colorless (Pale Yellow); Pathology Referral Yes; RBC Pertioneal Fluid 0 10^3/uL; WBC Peritoneal Fluid 47 /uL
[2020-07-11 20:46] LABS: Glucose Point of Care 227 mg/dL (70-110)
[2020-07-11] MEDS: atorvastatin 40 mg Tablet PO (21:08)
[2020-07-11 23:05] LABS: 25 Hydroxy Vitamin D 22 ng/mL (30-100)
[2020-07-12] VITALS (8 sets, daily range): BP systolic 98–148; BP diastolic 62–78; PULSE 55–64; RESP 16–18; TEMP 36.5–37; O2SAT 93–99
[2020-07-12] MEDS: Dianeal low Ca w/1.5% dex 2,000 mL Bag 2000 ML INTRAPERIT (01:52)
[2020-07-12] MEDS: piperacillin-tazobactam 3.375 GM in sodium chloride 0.9% (plus) 50 ML IV ×2 (06:04→18:09)
[2020-07-12 06:19] LABS: Basophils # 0.1 10^3/uL (0.0-0.1); Basophils % 1.2 %; Eosinophils # 0.6 10^3/uL (0.0-0.8); Eosinophils % 8.7 %; Hematocrit 28.4 % (37.0-47.0); Hemoglobin 9.1 g/dL (11.5-15.3); Lymphocytes # 1.5 10^3/uL (0.8-4.8); Lymphocytes % 22.2 %; Mean Platelet Volume 11.8 fL (7.4-10.4); Monocytes # 0.5 10^3/uL (0.2-0.9); Monocytes % 7.5 %; Neutrophils # 4.02 10^3/uL (1.8-7.7); Nucleated Red Blood Cells % 0 %; Platelet Count 285 10^3/cmm (130-400); Red Blood Count 2.84 10^6/uL (4.1-5.3); Red Cell Distribution Width 12.6 % (12.1-15.1); White Blood Count 6.7 10^3/uL (4.0-10.0)
[2020-07-12 06:40] LABS: Alanine Aminotransferase 9 U/L (0-33); Albumin Level 2.4 g/dL (3.5-5.2); Alkaline Phosphatase 106 IU/L (35-105); Anion Gap 16.3 (5-19); Aspartate Amino Transferase 9 U/L (0-32); Blood Urea Nitrogen 31 mg/dL (6-20); Carbon Dioxide 24 mmol/L (22-29); Chloride 92 mmol/L (98-107); Ferritin 809 ng/mL (15-150); Globulin 3.4 g/dL (1.3-4.6); Glomerular Filtration Rate 5.8 mL/min (90-130); Glucose 111 mg/dL (65-115); Iron 110 ug/dL (37-145); Magnesium 1.6 mg/dL (1.7-2.3); Osmolality Calculated 275 mOsm/kg (285-295); Percent Saturation 63.9 % (20-50); Phosphorus 4.9 mg/dL (2.5-4.5); Potassium 3.3 mmol/L (3.5-5.1); Sodium 129 mmol/L (136-145); Total Bilirubin 0.5 mg/dL (0.15-1.2); Total Iron Binding Capacity 172 mcg/dl; Total Protein 5.8 g/dL (6.6-8.7); Unsaturated Iron Binding 62 ug/dL (112-347)
[2020-07-12 06:50] LABS: Glucose Point of Care 111 mg/dL (70-110)
[2020-07-12 06:54] LABS: Cortisol Random 4.68 ug/dL (2.47-19.5)
[2020-07-12 06:55] LABS: Hepatitis B Surface AB 6.7 (0-8.5); Hepatitis B Surface Antigen Non-Reactive (Nonreactive)
[2020-07-12 07:06] LABS: Calcium 8.4 mg/dL (8.5-10.5)
--- NOTE | 2020-07-12 07:19 | PC.NURSE ---
pt refused to get up to chair for breakfast.
[2020-07-12 07:30] LABS: Parathyroid Hormone 269.6 pg/mL (15-65)
[2020-07-12] MEDS: levothyroxine 112 mcg Tablet 224 MCG PO (08:32)
[2020-07-12] MEDS: clopidogrel 75 mg Tablet PO (08:32)
[2020-07-12] MEDS: omega-3 fatty acids 1,000 mg Capsule 1 MG PO (08:32)
[2020-07-12] MEDS: pantoprazole DR 40 mg Tablet PO (08:32)
[2020-07-12] MEDS: aspirin 81 mg Chew Tablet PO (08:32)
[2020-07-12] MEDS: midodrine 5 mg TABLET PO ×3 (08:32→20:18)
[2020-07-12] MEDS: multivitamin therapeutic Tablet 1 TAB PO (08:32)
[2020-07-12] MEDS: cholecalciferol (vitamin D3) 1,000 unit Tablet 1000 UNIT PO (08:33)
[2020-07-12] MEDS: sevelamer 800 mg Tablet PO ×3 (08:33→20:18)
[2020-07-12] MEDS: brimonidine 0.2% Op Soln 5 mL Btl 1 DROP EYE-BOTH ×2 (08:35→20:20)
[2020-07-12] MEDS: dorzolamide/timolol Op Soln 10 mL Btl 1 DROP EYE-BOTH ×2 (08:36→20:21)
--- NOTE | 2020-07-12 11:02 | P.PN_ITS ---
Subjective Subjective: Interval history: feels better, anxious for discharge Medications: Reviewed: Yes Vitals/I&O/Wt Last Vital Signs Temp 98.0 F 07/12/20 10:54 Pulse 57 L 07/12/20 10:54 Resp 17 07/12/20 10:54 BP 110/68 07/12/20 10:54 Pulse Ox 99 07/12/20 10:54 07/11/20 07/12/20 07/12/20 22:59 06:59 14:59 Intake Total 920 / 1090 50 / 1140 2172 / 2172 Output Total 50 / 50 50 / 100 Balance 870 / 1040 0 / 1040 2172 / 2172 Weight last 48 hrs Weight 96.252 kg Weight 102.285 kg Weight 83.915 kg Physical Exam Const: COMMON NORMALS: no acute distress Data : 07/12/20 04:40 07/12/20 04:40 Other Labs: PD fluid 47 WBC Micro: Microbiology 07/10/20 19:40 Blood Culture - Preliminary Blood NEGATIVE TO DATE 07/10/20 19:38 Blood Culture - Preliminary Blood NEGATIVE TO DATE A&P Additional A&P Information 1. ESRD on peritoneal dialysis, recent episode of peritonitis, no evidence of peritonitis at this time. Not removing fluid with 1.5% (retaining 500 ml/e xchange) 2. Hyponatremia, probably related fluid 3. Hypokalemia, replace oral 4. Anemia, 3 g Hb fall in 48 hours, no known blood loss, may be partially related to IVF hydration 5. Hypotension, improved on midodrine Rec: change to alternating 1.5 and 2.5% PD fluid. Repeat CBC and BMP in AM. She has appointment to see outpatient car ferry master Jul 23 Attestations Medical Necessity Statement*: per primary service Time Spent in Patient Care: 16 - 35 minutes Coding Level of Care Code Acute Lace Machine Operator for Maris Braden
--- NOTE | 2020-07-12 11:22 | PM.PN ---
Subjective Medications: Reviewed: Yes Vitals/I&O/Wt Last Vital Signs Temp 98.0 F 07/12/20 10:54 Pulse 57 L 07/12/20 10:54 Resp 17 07/12/20 10:54 BP 110/68 07/12/20 10:54 Pulse Ox 99 07/12/20 10:54 07/11/20 07/12/20 07/12/20 22:59 06:59 14:59 Intake Total 920 / 1090 50 / 1140 2172 / 2172 Output Total 50 / 50 50 / 100 Balance 870 / 1040 0 / 1040 2172 / 2172 Weight last 48 hrs Weight 96.252 kg Weight 102.285 kg Weight 83.915 kg Physical Exam Const: COMMON NORMALS: patient oriented x3 HENMT: COMMON NORMALS: normocephalic and atraumatic HEAD & SCALP: normocephalic and atraumatic Resp: COMMON NORMALS: clear to auscultation bilaterally EFFORT & INSPECTION: Yes symmetric chest movement AUSCULTATION: clear to auscultation bilaterally Cardio: COMMON NORMALS: regular rate, regular rhythm, S1 normal heart sound present, S2 normal heart sound present, No gallops present (Cardio), No murmurs present (Cardio), No rub (Cardio) and Peripheral pulses 2+ throughout RATE: regular rate RHYTHM: regular rhythm HEART SOUNDS: S1 normal heart sound present and S2 normal heart sound present PERIPHERAL PULSES: Peripheral pulses 2+ throughout GI: COMMON NORMALS: Normal to inspection, nondistended, normoactive bowel sounds present, Soft to palpation, non-tender, No hepatosplenomegaly present and no masses AUSCULTATION: Yes normoactive bowel sounds PALPATION: Yes Soft to palpation and Yes No hepatosplenomegaly present RECTAL EXAM: deferred Extremity: COMMON NORMALS: no clubbing, cyanosis or edema and no pedal edema NARRATIVE EXTREMITY EXAM: Rt Knee BKA Neuro: COMMON NORMALS: patient oriented x3 Data : 07/12/20 04:40 07/12/20 04:40 Micro: Microbiology 07/10/20 19:40 Blood Culture - Preliminary Blood NEGATIVE TO DATE 07/10/20 19:38 Blood Culture - Preliminary Blood NEGATIVE TO DATE A&P Assessment and plan (1) Acute hypotension: Likely 2/2 to Poor oral intake.Will r/o Infection though low on suspicion /Partial adrenal insufficiency Has Responded well to 500 cc I.V Normal saline Encourage PO intake Continue Midodrine 5MG PO TID P.D fluid for cell count, cx, and gram stain Am cortisol Continue Zosyn for now Continue Van Am Cortisol : 4.68 Status: Acute (2) End stage kidney disease: CAPD per Renal Status: Acute (3) Dizziness: Status: Acute (4) Elevated troponin: Status: Acute (5) Elevated lactic acid level: Status: Acute (6) Hyponatremia: Status: Acute (7) Chronic diastolic CHF (congestive heart failure): Status: Acute (8) CAD (coronary artery disease): Status: Chronic Qualifiers: Associated angina: without angina Coronary Disease-Associated Artery/Lesion type: [place] artery [place] vs. transplanted heart: [place] heart Qualified Code(s): I25.10 - Atherosclerotic heart disease of [place] coronary artery without angina pectoris (9) Insulin dependent diabetes mellitus: Status: Acute (10) HTN (hypertension): Status: Acute (11) Peripheral vascular disease: Status: Acute (12) BPPV (benign paroxysmal positional vertigo): Status: Acute Additional A&P Information Code Status:Full code DVT PPX: Heparin Disposition : Home will DC in am as her B/P is fine and clinical suspicion for infection is low.She can follow renal as outpatient to complete possible relative adrenal insufficiency work up.If needed will increase the midodrine dose. Attestations Medical Necessity Statement*: Patient needs to be in hospital for the management of Hypotension, CAPD Coding Level of Care Code Acute Emt/Dispatcher for Chg Fwd Exam Detailed Diagnoses Acute hypotension I95.9 End stage kidney disease N18.6 Dizziness R42 Elevated troponin R77.8 Elevated lactic acid level R79.89 Hyponatremia E87.1 Chronic diastolic CHF (congestive heart failure) I50.32 CAD (coronary artery disease) I25.10 Associated angina: without angina Coronary Disease-Associated Artery/Lesion type: [place] artery [place] vs. transplanted heart: [place] heart Insulin dependent diabetes mellitus HTN (hypertension) I10 Peripheral vascular disease I73.9 BPPV (benign paroxysmal positional vertigo) H81.10
[2020-07-12] MEDS: potassium chloride ER 20 mEq Tablet PO (11:41)
[2020-07-12 11:46] LABS: Glucose Point of Care 207 mg/dL (70-110)
--- NOTE | 2020-07-12 13:22 | PC.CHAP ---
Pastoral Care Encounter/Spiritual Assessment Type of Contact [] Declined aviation ordnance officer visit [] Patient/Family/Request visit [] Outpatient visit [xx] Follow-up visit [] Physician referral [] Code/Alert [xx] Routine visit [] Staff referral [] Actively dying [] Patient sleeping [] Family support [] [] Out of room [] Palliative care [] [] Receiving care in room [] Pre-surgical visit [] Trauma [] Long length of stay [] ICU visit [] Other: Relational/Emotional Strength [] Patient feels connected with others/family/visitors/staff [] Distress [] Loneliness/isolation [] Abandonment Spirituality of Patient [xx] Person of [place] [] Attends Restoration of their [place] [xx] Believes in Prayer [] Reads Bible or Orthodoxy materials [] There are Spiritual issues to be addressed News Librarian Interventions [xx] Prayer [xx] Active listening [xx] Non-anxious presence [] Spiritual/emotional support [] Crisis/trauma care [] Spiritual counseling [] Bereavement support [] Provided bereavement packet [xx] Provided Bible/devotional materials [] Provided toy/stuffed animal, coloring book to patient or family member [] Provided Communion [] Anointing/[place] [] Salvation [] Completed spiritual assessment [] Other: Impact on Illness or Injury [] Angry [] Fearful [] Anxious [] Often cries [] Exhaustion [] Unable to work [] Unable to attend alevism [] Unable to walk/stand [] Unable to read [] Unable to drive [] Unable to eat/drink [] Unable to sleep [] Unable to be with family [] Patient intubated [] Other: Summary Patient friendly but sleepy so visit kept short. Patient hopes she will go home later today or in the morning. Patient accepted copy of [employer] devotional to take home. Time spent with patient 5 minutes
[2020-07-12 13:40] LABS: Vancomycin Trough 39.4 ug/mL (10-15)
[2020-07-12 17:13] LABS: Glucose Point of Care 186 mg/dL (70-110)
[2020-07-12] MEDS: heparin 5,000 unit/mL INJ 1 mL 5000 UNIT SUBCUT (18:08)
[2020-07-12] MEDS: atorvastatin 40 mg Tablet PO (20:18)
[2020-07-12 21:38] LABS: Glucose Point of Care 212 mg/dL (70-110)
[2020-07-13] VITALS: BP 144/76; PULSE 58; RESP 17; TEMP 37.1; O2SAT 96
[2020-07-13 02:59] LABS: Potassium, Radom Urine 26 mmol/L; Urine Random Chloride 37 mmol/L; Urine Random Sodium 56 mmol/L
[2020-07-13 04:00] VITALS: BP 99/52; PULSE 58; RESP 17; TEMP 36.8; O2SAT 95
[2020-07-13] MEDS: piperacillin-tazobactam 3.375 GM in sodium chloride 0.9% (plus) 50 ML IV (06:05)
[2020-07-13 06:09] LABS: Alanine Aminotransferase 9 U/L (0-33); Albumin Level 2.6 g/dL (3.5-5.2); Alkaline Phosphatase 101 IU/L (35-105); Blood Urea Nitrogen 28 mg/dL (6-20); Carbon Dioxide 26 mmol/L (22-29); Chloride 95 mmol/L (98-107); Globulin 2.8 g/dL (1.3-4.6); Glomerular Filtration Rate 6.2 mL/min (90-130); Glucose 104 mg/dL (65-115); Magnesium 1.6 mg/dL (1.7-2.3); Osmolality Calculated 288 mOsm/kg (285-295); Phosphorus 5.1 mg/dL (2.5-4.5); Sodium 136 mmol/L (136-145); Total Bilirubin 0.4 mg/dL (0.15-1.2); Total Protein 5.4 g/dL (6.6-8.7); Vancomycin Random 37.5 ug/mL (20.0-40.0)
[2020-07-13 06:21] LABS: Aspartate Amino Transferase 15 U/L (0-32)
[2020-07-13 06:46] LABS: Basophils # 0.1 10^3/uL (0.0-0.1); Eosinophils # 0.7 10^3/uL (0.0-0.8); Eosinophils % 10.2 %; Hemoglobin 10.3 g/dL (11.5-15.3); Lymphocytes # 1.3 10^3/uL (0.8-4.8); Lymphocytes % 19.2 %; Mean Corpuscular HGB Conc 33.2 g/dL (30.0-36.0); Mean Corpuscular Hemoglobin 32.6 pg (28.0-34.0); Mean Corpuscular Volume 98.1 fL (81-99); Mean Platelet Volume 11.1 fL (7.4-10.4); Monocytes # 0.5 10^3/uL (0.2-0.9); Monocytes % 7.6 %; Neutrophils # 4.22 10^3/uL (1.8-7.7); Neutrophils % 61.6 %; Nucleated Red Blood Cells % 0 %; Platelet Count 250 10^3/cmm (130-400); Red Blood Count 3.16 10^6/uL (4.1-5.3); Red Cell Distribution Width 12.6 % (12.1-15.1); White Blood Count 6.9 10^3/uL (4.0-10.0)
[2020-07-13 07:09] LABS: Glucose Point of Care 132 mg/dL (70-110)
[2020-07-13 07:57] VITALS: BP 102/64; PULSE 64; RESP 18; TEMP 36.6; O2SAT 95
[2020-07-13 08:13] VITALS: PULSE 64
[2020-07-13] MEDS: midodrine 5 mg TABLET PO (08:55)
[2020-07-13] MEDS: dorzolamide/timolol Op Soln 10 mL Btl 1 DROP EYE-BOTH (08:55)
[2020-07-13] MEDS: cholecalciferol (vitamin D3) 1,000 unit Tablet 1000 UNIT PO (08:55)
[2020-07-13] MEDS: potassium chloride ER 20 mEq Tablet PO (08:56)
[2020-07-13] MEDS: pantoprazole DR 40 mg Tablet PO (08:56)
[2020-07-13] MEDS: omega-3 fatty acids 1,000 mg Capsule 1 MG PO (08:56)
[2020-07-13] MEDS: multivitamin therapeutic Tablet 1 TAB PO (08:56)
[2020-07-13] MEDS: sevelamer 800 mg Tablet PO (08:56)
[2020-07-13] MEDS: aspirin 81 mg Chew Tablet PO (08:56)
[2020-07-13] MEDS: clopidogrel 75 mg Tablet PO (08:56)
[2020-07-13] MEDS: levothyroxine 112 mcg Tablet 224 MCG PO (08:56)
[2020-07-13] MEDS: brimonidine 0.2% Op Soln 5 mL Btl 1 DROP EYE-BOTH (09:02)
--- NOTE | 2020-07-13 11:18 | P.DS_ITS ---
Discharge Providers Date of Admission: 07/11/20 16:06 Date of Discharge: July 13, 2020 Attending Provider at Admission: Joe Conner MD Attending Provider at Discharge: Joe Conner MD Primary Care Provider: Yovany Leonardo MD Diagnoses at Discharge Discharge Diagnosis (1) Acute hypotension: Status: Resolved (2) End stage kidney disease: Status: Chronic (3) Dizziness: Status: Resolved (4) Chronic diastolic CHF (congestive heart failure): Status: Acute Permanent problem details: Compensated currently (5) CAD (coronary artery disease): Status: Chronic Qualifiers: Associated angina: without angina Coronary Disease-Associated Artery/Lesion type: [place] artery [place] vs. transplanted heart: [place] heart Qualified Code(s): I25.10 - Atherosclerotic heart disease of [place] coronary artery without angina pectoris (6) Insulin dependent diabetes mellitus: Status: Chronic (7) HTN (hypertension): Status: Chronic (8) BPPV (benign paroxysmal positional vertigo): Status: Acute Reason for Visit Reason for Visit: hypotension Hospital Course Hospital Course Rizwana Herzog is a 55 year old female with PMH of end-stage renal disease on peritoneal dialysis, hypertension, insulin-dependent diabetes mellitus type 2 status post right below-knee amputation and known history of coronary artery disease status post PCI to LAD on 03 Nov 2018 at [facility].She also has anemia of end-stage renal disease, hypothyroidism, depression/anxiety, gastroesophageal reflux disease, peripheral vascular disease status post left foot toe amputation, diastolic congestive heart failure and hyperlipidemia. She was recently discharged from [facility] after being treated for peritonitis and was told to follow u with her programmer business.She was seeing her programmer business today and was complaining of dizziness as well as low b/p in the cardiology clinic her B/P was 80/58 mmHg.She was sent to ER for further management. ER Course : CT abdomen pelvis wo con:Large amount of ascites with a peritoneal dialysis catheter in place. Patchy atelectasis in both lower lobes. No change from previous CT abdomen and pelvis. XR chest: No nodules, masses or effusions are seen.The pulmonary vascularity is not increased. No pneumonia or pneumothorax is seen. Pertinent Labs: WBC : 9.8, H/H: 12/36 Na: 129, k :4.2 , Lactic acid : 3 Troponin : Baseline :154, 2H : 148, Delta 2H: -5.6 , Pro BNP: 2279. ECA Medications: She received a dose Van and Zosyn as well as was bloused with 500CC N.S. Post Bolus her B/P Is : 110/83. She was admitted for the management of Hypotension and dizziness and ?? infection of peritoneal cavity.She received vanc and zosyn while in hospital but later per nephrology clinical suspicion for peritonitis was low.Hence Abxs were Dc. Her Hypotension responded well to I.V fluids.She was continued on P.D She responded well to the above medical management and was discharged in stable condition to home.She will continue to follow her medical referral coordinator at [facility] and she has an appointment on 07/23. Physical Exam Const: COMMON NORMALS: patient oriented x3 HENMT: COMMON NORMALS: normocephalic and atraumatic HEAD & SCALP: normocephalic and atraumatic Resp: COMMON NORMALS: clear to auscultation bilaterally EFFORT & INSPECTION: Yes symmetric chest movement AUSCULTATION: clear to auscultation bilaterally Cardio: COMMON NORMALS: regular rate, regular rhythm, S1 normal heart sound present, S2 normal heart sound present, No gallops present (Cardio), No murmurs present (Cardio), No rub (Cardio) and Peripheral pulses 2+ throughout RATE: regular rate RHYTHM: regular rhythm HEART SOUNDS: S1 normal heart sound present and S2 normal heart sound present PERIPHERAL PULSES: Peripheral pulses 2+ throughout GI: COMMON NORMALS: Normal to inspection, nondistended, normoactive bowel sounds present, Soft to palpation, non-tender, No hepatosplenomegaly present and no masses AUSCULTATION: Yes normoactive bowel sounds PALPATION: Yes Soft to palpation and Yes No hepatosplenomegaly present RECTAL EXAM: deferred OTHER: PD Site is clean Extremity: COMMON NORMALS: no clubbing, cyanosis or edema and no pedal edema NARRATIVE EXTREMITY EXAM: Rt Knee BKA Neuro: COMMON NORMALS: patient oriented x3 Discharge Data Data Completed and Pending: Completed Studies During Hospitalization Category Date Time Status CT abdomen pelvis wo con [id number] Stat Cat Scan 07/10/20 15:55 Completed XR chest 1V sandra ble [id number] Urgent Exams 07/10/20 14:49 Completed Pending at discharge Category Date Time Status Blood Culture [place] Lab 07/10/20 19:40 Results Complete Blood Co unt w/Auto AM LABS Lab 07/14/20 04:00 Ordered Comprehensive Met abolic Panel AM LA BS Lab 07/14/20 04:00 Ordered Dialysis Culture Routine Lab 07/11/20 19:15 Received Magnesium AM LABS Lab 07/14/20 04:00 Ordered Phosphorus AM LAB S Lab 07/14/20 04:00 Ordered Urine Culture [place] Lab 07/13/20 02:25 Received Vitamin D 1,25 Di hydroxy Routine Lab 07/11/20 15:16 Received Labs from last 24 hours 07/13/20 07/13/20 07/13/20 06:38 06:32 05:20 WBC 6.9 Corrected WBC RBC 3.16 L Hgb 10.3 L Hct 31.0 L MCV 98.1 MCH 32.6 MCHC 33.2 RDW 12.6 Plt Count 250 MPV 11.1 H Gran % Neut % (Auto) 61.6 Lymph % (Auto) 19.2 [place] % (Auto) 7.6 Eos % (Auto) 10.2 Baso % (Auto) 1.0 Neut # (Auto) 4.22 Lymph # (Auto) 1.3 [place] # (Auto) 0.5 Eos # (Auto) 0.7 Baso # (Auto) 0.1 Absolute Gran (aut o) Nucleated RBC % (a uto) 0 Nucleated RBCs # 0.0 Sodium 136 Potassium 4.0 Chloride 95 L Carbon Dioxide 26 Anion Gap 19.0 BUN 28 H Creatinine 6.9 H* GFR Calculation 6.2 L Glucose 104 POC Glucose 132 H Calculated Osmolal ity 288 Calcium 9.0 Phosphorus 5.1 H Magnesium 1.6 L Total Bilirubin 0.4 AST 15 ALT 9 Alkaline Phosphata se 101 Total Protein 5.4 L Albumin 2.6 L Globulin 2.8 Ur Random Sodium Ur Random [place] m Ur Random Chloride Vancomycin Trough Random Vancomycin 07/13/20 07/13/20 07/13/20 05:20 05:20 02:25 WBC Cancelled Corrected WBC Cancelled RBC Cancelled Hgb Cancelled Hct Cancelled MCV Cancelled MCH Cancelled MCHC Cancelled RDW Cancelled Plt Count Cancelled MPV Cancelled Gran % Cancelled Neut % (Auto) Cancelled Lymph % (Auto) Cancelled [place] % (Auto) Cancelled Eos % (Auto) Cancelled Baso % (Auto) Cancelled Neut # (Auto) Cancelled Lymph # (Auto) Cancelled [place] # (Auto) Cancelled Eos # (Auto) Cancelled Baso # (Auto) Cancelled Absolute Gran (aut o) Cancelled Nucleated RBC % (a uto) Cancelled Nucleated RBCs # Cancelled Sodium Potassium Chloride Carbon Dioxide Anion Gap BUN Creatinine GFR Calculation Glucose POC Glucose Calculated Osmolal ity Calcium Phosphorus Magnesium Total Bilirubin AST ALT Alkaline Phosphata se Total Protein Albumin Globulin Ur Random Sodium 56 Ur Random [place] m 26 Ur Random Chloride 37 Vancomycin Trough Random Vancomycin 37.5 07/12/20 07/12/20 07/12/20 21:14 17:06 12:55 WBC Corrected WBC RBC Hgb Hct MCV MCH MCHC RDW Plt Count MPV Gran % Neut % (Auto) Lymph % (Auto) [place] % (Auto) Eos % (Auto) Baso % (Auto) Neut # (Auto) Lymph # (Auto) [place] # (Auto) Eos # (Auto) Baso # (Auto) Absolute Gran (aut o) Nucleated RBC % (a uto) Nucleated RBCs # Sodium Potassium Chloride Carbon Dioxide Anion Gap BUN Creatinine GFR Calculation Glucose POC Glucose 212 H 186 H Calculated Osmolal ity Calcium Phosphorus Magnesium Total Bilirubin AST ALT Alkaline Phosphata se Total Protein Albumin Globulin Ur Random Sodium Ur Random [place] m Ur Random Chloride Vancomycin Trough 39.4 H* Random Vancomycin 07/12/20 11:37 WBC Corrected WBC RBC Hgb Hct MCV MCH MCHC RDW Plt Count MPV Gran % Neut % (Auto) Lymph % (Auto) [place] % (Auto) Eos % (Auto) Baso % (Auto) Neut # (Auto) Lymph # (Auto) [place] # (Auto) Eos # (Auto) Baso # (Auto) Absolute Gran (aut o) Nucleated RBC % (a uto) Nucleated RBCs # Sodium Potassium Chloride Carbon Dioxide Anion Gap BUN Creatinine GFR Calculation Glucose POC Glucose 207 H Calculated Osmolal ity Calcium Phosphorus Magnesium Total Bilirubin AST ALT Alkaline Phosphata se Total Protein Albumin Globulin Ur Random Sodium Ur Random [place] m Ur Random Chloride Vancomycin Trough Random Vancomycin Vitals: Last Vital Signs Temp 97.9 F 07/13/20 07:57 Pulse 64 07/13/20 08:13 Resp 18 07/13/20 07:57 BP 102/64 07/13/20 07:57 Pulse Ox 95 07/13/20 07:57 Discharge Plan Discharge Patient Disposition: Home Condition: Stable Prescriptions: Continued nitroglycerin 0.4 mg tablet, sublingual 0.4 mg SUBLINGUAL Q5M PRN (Reason: Chest Pain) Qty: 25 RF: 6 Lantus Solostar U-100 Insulin 100 unit/mL (3 mL) insulin pen 50 unit SUBCUT BID@08,20 Qty: 15 RF: 12 aspirin 81 mg Tablet,Chewable 81 mg PO DAILY@08 RF: 0 Auryxia 210 mg iron tablet See Rx Instructions .ROUTE .COMPLEX RF: 0 pantoprazole 40 mg tablet,delayed release (DR/EC) 40 mg PO DAILY@08 RF: 0 Rocklatan 0.02-0.005 % Drops 1 drp OPHTHALMIC (EYE) DAILY@20 RF: 0 sennosides-docusate sodium 8.6-50 mg tablet 2 tab PO BID PRN (Reason: Constipation) RF: 0 sevelamer carbonate 800 mg tablet 800 mg PO TID RF: 0 atorvastatin 40 mg Tablet 40 mg PO DAILY@20 RF: 0 cholecalciferol (vitamin D3) [Vitamin D3] 25 mcg (1,000 unit) Tablet 25 mcg PO DAILY@08 RF: 0 midodrine 5 mg Tablet 5 mg PO TID@08,,20 RF: 0 potassium chloride 10 mEq Tablet Extended Release 10 meq PO DAILY@08 RF: 0 clopidogrel 75 mg tablet 75 mg PO DAILY@08 RF: 0 levothyroxine 112 mcg tablet 224 mcg PO DAILY@0800 RF: 0 multivitamin [Multiple Vitamins] Tablet 1 tab PO DAILY@08 RF: 0 paricalcitol [Zemplar] 1 mcg capsule 1 mcg PO DAILY RF: 0 coenzyme Q10 [CoQ-10] 100 mg Capsule 100 mg PO DAILY@08 RF: 0 omega 2-gub-eih-fish oil [Fish Oil] 300-1,000 mg Capsule,Delayed Release(Dr/Ec) 1 cap PO BID@08,20 RF: 0 brimonidine 0.2 % drops 1 drp ophthalmic (eye) BID@08,20 RF: 0 dorzolamide-timolol 22.3-6.8 mg/mL drops 1 drp ophthalmic (eye) BID@08,20 RF: 0 Discharge Orders: Discharge Order (Routine); Ordered 07/13/20 Ordered By: Joe Conner Referrals: Yovany Leonardo MD [Primary Care Provider] - 1 month ([facility] Internal Medicine will call you Mitchell with an appointment to see Dr. Leonardo in approximately one month.) Discharge Diet: Cardiac Discharge Activity: Resume usual activity Patient Instructions: Chronic Kidney Disease (GEN), Hyponatremia (GEN), Peritoneal Dialysis Discharge Attestations Time Spent in Discharge Care*: less than 30 min Specific Discharge Activities: educating patient, educating and/or supporting family/caregiver, discussing with pcp/other providers, discussing with window caser/social workers/dc planners, documenting/other paperwork and evaluating patient/reviewing data Status at Discharge: Cognitive status at discharge: cognitively intact , Behavioral status at discharge: cooperative , Quality Metrics Clinical Quality Measures During this hospital stay, did patient experience: None Coding Level of Care Code Acute Director Of Oncology for Maris Braden Diagnoses Acute hypotension I95.9 End stage kidney disease N18.6 Dizziness R42 Chronic diastolic CHF (congestive heart failure) I50.32 CAD (coronary artery disease) I25.10 Associated angina: without angina Coronary Disease-Associated Artery/Lesion type: [place] artery [place] vs. transplanted heart: [place] heart Insulin dependent diabetes mellitus HTN (hypertension) I10 BPPV (benign paroxysmal positional vertigo) H81.10
[2020-07-13 11:55] VITALS: BP 147/83; PULSE 54; RESP 18; TEMP 36.7; O2SAT 97
[2020-07-13 12:05] LABS: Glucose Point of Care 184 mg/dL (70-110)
[2020-07-13 12:31] VITALS: BP 147/83; PULSE 54; RESP 18; TEMP 36.7; O2SAT 97
[2020-07-20 16:22] LABS: Vit D 1,25 (Oh)2, Total 9 pg/mL (18-72); Vit D2 1,25 (Oh)2 <8 pg/mL; Vit D3 1,25 (Oh)2 9 pg/mL
== END 2020-07-13 12:00 | disposition home or self-care (01) | DRG 314 ==
LOC: ER 18:23 → MEDSURG 20:05
PROVIDERS: Internal Medicine Nephrology; Admitting Provider Internal Medicine; Emergency Provider Family Medicine; PCP Internal Medicine; Visit Provider Internal Medicine
DX: I95.9 Hypotension, unspecified (principal); N18.6 End stage renal disease; I50.32 Chronic diastolic (congestive) heart failure; I13.2 Hypertensive heart and chronic kidney disease with heart failure and with stage 5 chronic kidney disease, or end stage renal disease; Z99.2 Dependence on renal dialysis; I25.10 Atherosclerotic heart disease of native coronary artery without angina pectoris; E11.22 Type 2 diabetes mellitus with diabetic chronic kidney disease; Z79.4 Long term (current) use of insulin; H81.10 Benign paroxysmal vertigo, unspecified ear; Z79.82 Long term (current) use of aspirin; Z79.02 Long term (current) use of antithrombotics/antiplatelets; Z89.511 Acquired absence of right leg below knee; Z95.5 Presence of coronary angioplasty implant and graft; E03.9 Hypothyroidism, unspecified; F41.8 Other specified anxiety disorders; K21.9 Gastro-esophageal reflux disease without esophagitis; E11.51 Type 2 diabetes mellitus with diabetic peripheral angiopathy without gangrene; Z89.422 Acquired absence of other left toe(s); E78.5 Hyperlipidemia, unspecified; Z86.73 Personal history of transient ischemic attack (TIA), and cerebral infarction without residual deficits
CPT/HCPCS: 12345; 36415; 36416; 71045; 74176; 80053; 80202; 80500; 81001; 82306; 82310; 82436; 82533; 82652; 82728; 82962; 83540; 83550; 83605; 83735; 83880; 83970; 84100; 84133; 84145; 84300; 84443; 84484; 85025; 85610; 86706; 86803; 87040; 87070; 87075; 87086; 87205; 87340; 89050; 93005; 96372; 97161; 99283; G0378; J1644; J1815; J2543; J3370; J7030; J7040; J7050; Q3014

== ENCOUNTER 2020-07-17 12:13 | Inpatient (IN) | payer MEDICARE, MEDICAID, SELFPAY ==
[2020-07-17] VITALS (23 sets, daily range): BP systolic 62–124; BP diastolic 45–82; PULSE 68–93; RESP 10–18; TEMP 36.4–37.1; O2SAT 90–100; BMI 30.7
--- NOTE | 2020-07-17 12:26 | ECG_ITS ---
[facility] Test Date: 2020-07-17 Pat Name: Rizwana Herzog Department: Room: Gender: Female Ceo And Founder: : 1965 Requested By: Karan Lepe Order Number: [id number] Catherine MD: Soraya Ignacio M.D. Measurements Intervals [place] Rate: 83 P: -80 ID: [id number] QRS: -82 QRSD: 79 T: 30 QT: 381 QTc: 450 Interpretive Statements ECTOPIC ATRIAL RHYTHM POSSIBLE ANTERIOR MYOCARDIAL INFARCTION , PROBABLY OLD [30 ms Q WAVE IN V3/V4, OR R < 0.2 mV IN V4] INFERIOR MYOCARDIAL INFARCTION , PROBABLY OLD [40+ ms Q WAVE AND/OR ST/T ABNORMALITY IN II/aVF] Compared to ECG 07/10/2020 23:26:53 No significant changes Electronically Signed On 07-17-2020 19:31:35 BPM ARCHITECT by Soraya Ignacio M.D. [email or web address]
--- NOTE | 2020-07-17 12:26 | XR_ITS ---
WS: [id number] Portable AP upright chest, 07/17/2020 Clinical Data: chest pain Comparison: Portable chest, 07/10/2020. Findings: No nodules, masses or effusions are seen. The heart is normal. The pulmonary vascularity is not increased. No pneumonia or pneumothorax is seen. There is minimal linear atelectasis in the righ t midlung. The right diaphragm is elevated. Monitor leads are on the chest wall. The thoracic aorta a nd descending aorta show tortuosity. XR/XR chest 1V portable [id number] Impression: Atherosclerosis.
--- NOTE | 2020-07-17 12:38 | ED_ITS ---
HPI - Chest Pain General: Chief Complaint: Chest Pain Stated Complaint: N/V/Chest tightness Time Seen by Provider: 07/17/20 12:25 History of Present Illness: HPI narrative: 55-year-old female presents in the emergency room with nausea and vomiting. She has diabetic gastroparesis chronically has trouble. She has not felt well for months now been worsening the last couple of days she has been getting some chest pain radiating up and to the left side of her chest along with it. She has no known history of heart disease. The nurses note list chest pain as chief complaint however in talking to her she relates more of her epigastric diabetic gastroparesis symptoms that she has been having for a long period of time. Onset (ago): month(s) Timing of current episode: episodic Onset: after eating Pain location: epigastric Pain radiation: other (chest) Severity: moderate Quality: tightness, aching and heaviness Relieving factors: antacids Exacerbating factors: eating Associated symptoms: Reports abdominal pain, nausea and vomiting; Deny diaphoresis, dyspnea, fever(s), leg edema, palpitations, sense of impending doom or syncope Treatment prior to arrival: none Review of Systems Const: Denies: fever(s) or diaphoresis ENMT: Denies: throat pain, ear or mastoid pain, nasal discharge or nasal congestion Card: Denies: palpitations or syncope Resp: Denies: dyspnea GI: Reports: abdominal pain, nausea and vomiting : Denies: flank pain, difficulty voiding, dysuria, urinary frequency or urinary urgency Skin/Breast: Denies: rash or pruritus PFSH ED PFSH: Medical History Anxiety BPPV (benign paroxysmal positional vertigo) CAD (coronary artery disease) Carotid stenosis Chronic diastolic CHF (congestive heart failure) Chronic left sacroiliac joint pain Claustrophobia Depression Diabetes Insulin-dependent End stage renal disease peritoneal dialysis ESBL (extended spectrum beta-lactamase) producing bacteria infection ESRD (end stage renal disease) Gastroparesis GERD (gastroesophageal reflux disease) HTN (hypertension) Hyperlipidemia Hypothyroidism Insulin dependent diabetes mellitus DOROTEO on CPAP Partial nontraumatic amputation of left foot (~06/2019) Peripheral vascular disease Phantom pain Suicidal ideation TIA (transient ischemic attack) Vitamin D deficiency Surgical History H/O hysterectomy with oophorectomy History of appendectomy History of heart artery stent History of hysterectomy History of left heart catheterization History of right below knee amputation Peritoneal dialysis catheter in place S/P cholecystectomy S/P PICC central line placement Status post amputation of toe Family History Denies family history of CAD (coronary artery disease) Clotting disorder Dementia Bleeding disorder Social History Smoking and tobacco status: never smoked Alcohol intake: never Household members: spouse and family History of recent travel: No Physical Exam Const: COMMON NORMALS: no acute distress GENERAL APPEARANCE: cooperative and comfortable ORIENTATION/CONSCIOUSNESS: Yes awake, Yes oriented to person, Yes oriented to place and Yes oriented to time HENMT: COMMON NORMALS: normocephalic, atraumatic and hearing grossly normal bilaterally HEAD & SCALP: normocephalic and atraumatic Eye: COMMON NORMALS: Equal, round and reactive pupils present, EOMs intact bilaterally, conjunctivae normal and no scleral icterus CONJUNCTIVA: Yes conjunctivae normal PUPIL: Yes Equal, round and reactive pupils present Neck/C-Spine: COMMON NORMALS: full ROM, no lymphadenopathy, supple and no JVD Lymph: LYMPHATIC: no lymphadenopathy noted and no lymphedema noted Resp: COMMON NORMALS: normal respiratory effort, No retractions, No use of accessory muscles and clear to auscultation bilaterally AUSCULTATION: clear to auscultation bilaterally Cardio: COMMON NORMALS: no JVD, regular rate, regular rhythm and No murmurs present (Cardio) RATE: regular rate RHYTHM: regular rhythm GI: COMMON NORMALS: Soft to palpation and No hepatosplenomegaly present AUSCULTATION: Yes normoactive bowel sounds PALPATION: Yes Soft to palpation, No Tenderness to palpation present (GI), No Guarding due to palpation present (GI) and Yes No hepatosplenomegaly present Extremity: COMMON NORMALS: normal to inspection, capillary refill normal, no clubbing, cyanosis or edema, no calf tenderness and no pedal edema Neuro: SENSORIUM/ORIENTATION: Yes oriented to person, Yes oriented to place and Yes oriented to time Skin: COMMON NORMALS: no rashes or lesions noted GENERAL SKIN EXAM: no rashes or lesions noted Course Vital Signs: Vital signs: Vital Signs Temperature 98.1 F 07/21/20 14:55 Pulse Rate 97 07/21/20 14:55 Respiratory Rate 19 H 07/21/20 14:55 Blood Pressure 110/76 07/21/20 14:55 Pulse Oximetry 99 07/21/20 14:55 MDM - Chest Pain MDM Narrative: Medical decision making narrative: Patient has hypotension with persistent nausea and vomiting and some diverticulitis. She is approaching end- stage renal disease her kidney function today is actually slightly improved from what her baseline looks like however reviewing her previous creatinine she has had quite a range. We will go ahead and admit for antiemetics IV fluids and a ntibiotics discussed with hospitalist orders are written Lab Data: Labs: Lab Results 07/17/20 07/17/20 07/17/20 Range/Units 12:30 12:30 12:30 WBC 8.4 (4.0-10.0) 10^3/ uL RBC 4.19 (4.1-5.3) 10^6/u L Hgb 13.5 (11.5-15.3) g/dL Hct 39.9 (37.0-47.0) % MCV 95.2 (81-99) fL MCH 32.2 (28.0-34.0) pg MCHC 33.8 (30.0-36.0) g/dL RDW 12.7 (12.1-15.1) % Plt Count 291 (130-400) 10^3/c mm MPV 11.9 H (7.4-10.4) fL Neut % (Auto) 58.2 % Lymph % (Auto) 29.7 % Creek % (Auto) 8.1 % Eos % (Auto) 2.3 % Baso % (Auto) 1.2 % Neut # (Auto) 4.92 (1.8-7.7) 10^3/u L Lymph # (Auto) 2.5 (0.8-4.8) 10^3/u L Creek # (Auto) 0.7 (0.2-0.9) 10^3/u L Eos # (Auto) 0.2 (0.0-0.8) 10^3/u L Baso # (Auto) 0.1 (0.0-0.1) 10^3/u L Nucleated RBC % (a uto) 0 % Nucleated RBCs # 0.0 /100WBC Specimen Type Sample Site O2 Sat Pulse Oxime try % ABG pH (7.35-7.45) ABG pCO2 (35-45) mmHg ABG pO2 (80.0-100.0) mmH g ABG HCO3 (22-26) mmol/L ABG O2 Saturation ABG Base Excess (-2.0-2.0) mmol/ L Jason Test A-a O2 Gradient (5-10) mmHg Hematocrit (37-47) % Hgb O2 Saturation (95-100) % Carboxyhemoglobin (0.4-20.1) %THgb Methemoglobin (0.4-1.5) % Total Hemoglobin (12-16) g/dL Ionized Calcium (1.1-1.4) mmol/L O2 Delivery Device FiO2 % Liquid Floor And Wall Applier ID Sodium 131 L (136-145) mmol/L Potassium 3.3 L (3.5-5.1) mmol/L Chloride 87 L (98-107) mmol/L Carbon Dioxide 25 (22-29) mmol/L Anion Gap 22.3 H (5-19) BUN 21 H (6-20) mg/dL Creatinine 6.7 H* (0.5-0.9) mg/dL GFR Calculation 6.4 L (90-130) mL/min Glucose 272 H (65-115) mg/dL Calculated Osmolal ity 285 (285-295) mOsm/k g Lactic Acid (0.5-2.2) mmol/L Calcium 10.1 (8.5-10.5) mg/dL Magnesium 1.4 L (1.7-2.3) mg/dL Iron (37-145) ug/dL TIBC mcg/dl % Saturation (20-50) % Unsat Iron Binding (112-347) ug/dL Total Bilirubin 0.6 (0.15-1.2) mg/dL AST 47 H (0-32) U/L ALT 41 H (0-33) U/L Alkaline Phosphata se 132 H (35-105) IU/L Creatine Kinase 33 (26-192) U/L Troponin T Baselin e 174 H* (0-10) ng/L Troponin T 120 Min tlingit & haida (0-10) ng/L Delta Troponin T (0-10) ABS# NT-Pro-B Natriuret Pep (0-125) pg/mL Total Protein 7.4 (6.6-8.7) g/dL Albumin 3.4 L (3.5-5.2) g/dL Globulin 4.0 (1.3-4.6) g/dL Lipase 47 (13-60) U/L Procalcitonin (0-0.5) ng/mL TSH (0.27-4.20) uIU/ mL Free T4 (0.82-1.77) ng/d L Free T3 (2.0-4.4) PG/ML Urine Color (Yellow) Urine Appearance (CLEAR) Urine pH (5-7) Ur Specific Gravit y (1.005-1.030) Urine Protein (Negative) Urine Glucose (UA) (Normal) Urine Ketones (Negative) Urine Blood (Negative) Urine Nitrate (Negative) Urine Bilirubin (Negative) Urine Urobilinogen (Negative) mg/dL Ur Leukocyte Yara ase (Negative) Urine RBC (0-2) /hpf Urine WBC (0-5) /hpf Ur Squamous Epith Cells (0-5) /hpf Amorphous Sediment Urine Bacteria (NONE) /hpf Serum Ketones (Negative) 07/17/20 07/17/20 07/17/20 Range/Units 12:30 12:30 12:30 WBC (4.0-10.0) 10^3/ uL RBC (4.1-5.3) 10^6/u L Hgb (11.5-15.3) g/dL Hct (37.0-47.0) % MCV (81-99) fL MCH (28.0-34.0) pg MCHC (30.0-36.0) g/dL RDW (12.1-15.1) % Plt Count (130-400) 10^3/c mm MPV (7.4-10.4) fL Neut % (Auto) % Lymph % (Auto) % Creek % (Auto) % Eos % (Auto) % Baso % (Auto) % Neut # (Auto) (1.8-7.7) 10^3/u L Lymph # (Auto) (0.8-4.8) 10^3/u L Creek # (Auto) (0.2-0.9) 10^3/u L Eos # (Auto) (0.0-0.8) 10^3/u L Baso # (Auto) (0.0-0.1) 10^3/u L Nucleated RBC % (a uto) % Nucleated RBCs # /100WBC Specimen Type Sample Site O2 Sat Pulse Oxime try % ABG pH (7.35-7.45) ABG pCO2 (35-45) mmHg ABG pO2 (80.0-100.0) mmH g ABG HCO3 (22-26) mmol/L ABG O2 Saturation ABG Base Excess (-2.0-2.0) mmol/ L Jason Test A-a O2 Gradient (5-10) mmHg Hematocrit (37-47) % Hgb O2 Saturation (95-100) % Carboxyhemoglobin (0.4-20.1) %THgb Methemoglobin (0.4-1.5) % Total Hemoglobin (12-16) g/dL Ionized Calcium (1.1-1.4) mmol/L O2 Delivery Device FiO2 % Liquid Floor And Wall Applier ID Sodium (136-145) mmol/L Potassium (3.5-5.1) mmol/L Chloride (98-107) mmol/L Carbon Dioxide (22-29) mmol/L Anion Gap (5-19) BUN (6-20) mg/dL Creatinine (0.5-0.9) mg/dL GFR Calculation (90-130) mL/min Glucose (65-115) mg/dL Calculated Osmolal ity (285-295) mOsm/k g Lactic Acid 5.4 H* (0.5-2.2) mmol/L Calcium (8.5-10.5) mg/dL Magnesium (1.7-2.3) mg/dL Iron 123 (37-145) ug/dL TIBC 222 mcg/dl % Saturation 55.4 H (20-50) % Unsat Iron Binding 99 L (112-347) ug/dL Total Bilirubin (0.15-1.2) mg/dL AST (0-32) U/L ALT (0-33) U/L Alkaline Phosphata se (35-105) IU/L Creatine Kinase (26-192) U/L Troponin T Baselin e (0-10) ng/L Troponin T 120 Min tlingit & haida (0-10) ng/L Delta Troponin T (0-10) ABS# NT-Pro-B Natriuret Pep 5655 H (0-125) pg/mL Total Protein (6.6-8.7) g/dL Albumin (3.5-5.2) g/dL Globulin (1.3-4.6) g/dL Lipase (13-60) U/L Procalcitonin 0.41 (0-0.5) ng/mL TSH (0.27-4.20) uIU/ mL Free T4 (0.82-1.77) ng/d L Free T3 (2.0-4.4) PG/ML Urine Color (Yellow) Urine Appearance (CLEAR) Urine pH (5-7) Ur Specific Gravit y (1.005-1.030) Urine Protein (Negative) Urine Glucose (UA) (Normal) Urine Ketones (Negative) Urine Blood (Negative) Urine Nitrate (Negative) Urine Bilirubin (Negative) Urine Urobilinogen (Negative) mg/dL Ur Leukocyte Yara ase (Negative) Urine RBC (0-2) /hpf Urine WBC (0-5) /hpf Ur Squamous Epith Cells (0-5) /hpf Amorphous Sediment Urine Bacteria (NONE) /hpf Serum Ketones Negative (Negative) 07/17/20 07/17/20 07/17/20 Range/Units 12:30 12:30 13:14 WBC (4.0-10.0) 10^3/ uL RBC (4.1-5.3) 10^6/u L Hgb (11.5-15.3) g/dL Hct (37.0-47.0) % MCV (81-99) fL MCH (28.0-34.0) pg MCHC (30.0-36.0) g/dL RDW (12.1-15.1) % Plt Count (130-400) 10^3/c mm MPV (7.4-10.4) fL Neut % (Auto) % Lymph % (Auto) % Creek % (Auto) % Eos % (Auto) % Baso % (Auto) % Neut # (Auto) (1.8-7.7) 10^3/u L Lymph # (Auto) (0.8-4.8) 10^3/u L Creek # (Auto) (0.2-0.9) 10^3/u L Eos # (Auto) (0.0-0.8) 10^3/u L Baso # (Auto) (0.0-0.1) 10^3/u L Nucleated RBC % (a uto) % Nucleated RBCs # /100WBC Specimen Type Arterial Sample Site Lb O2 Sat Pulse Oxime try 95.8 % ABG pH 7.41 (7.35-7.45) ABG pCO2 35.7 (35-45) mmHg ABG pO2 78.0 L (80.0-100.0) mmH g ABG HCO3 22.8 (22-26) mmol/L ABG O2 Saturation 95.8 ABG Base Excess -1.4 (-2.0-2.0) mmol/ L Jason Test Pos A-a O2 Gradient 104.8 H (5-10) mmHg Hematocrit 38.4 (37-47) % Hgb O2 Saturation 94.2 L (95-100) % Carboxyhemoglobin 0.8 (0.4-20.1) %THgb Methemoglobin 0.9 (0.4-1.5) % Total Hemoglobin 12.5 (12-16) g/dL Ionized Calcium 1.1 (1.1-1.4) mmol/L O2 Delivery Device Roomair FiO2 21.0 % Liquid Floor And Wall Applier ID Cak Sodium 135.0 (136-145) mmol/L Potassium 3.1 L (3.5-5.1) mmol/L Chloride (98-107) mmol/L Carbon Dioxide (22-29) mmol/L Anion Gap (5-19) BUN (6-20) mg/dL Creatinine (0.5-0.9) mg/dL GFR Calculation (90-130) mL/min Glucose 277.0 H (65-115) mg/dL Calculated Osmolal ity (285-295) mOsm/k g Lactic Acid (0.5-2.2) mmol/L Calcium (8.5-10.5) mg/dL Magnesium (1.7-2.3) mg/dL Iron (37-145) ug/dL TIBC mcg/dl % Saturation (20-50) % Unsat Iron Binding (112-347) ug/dL Total Bilirubin (0.15-1.2) mg/dL AST (0-32) U/L ALT (0-33) U/L Alkaline Phosphata se (35-105) IU/L Creatine Kinase (26-192) U/L Troponin T Baselin e (0-10) ng/L Troponin T 120 Min tlingit & haida (0-10) ng/L Delta Troponin T (0-10) ABS# NT-Pro-B Natriuret Pep (0-125) pg/mL Total Protein (6.6-8.7) g/dL Albumin (3.5-5.2) g/dL Globulin (1.3-4.6) g/dL Lipase (13-60) U/L Procalcitonin (0-0.5) ng/mL TSH 17.08 H (0.27-4.20) uIU/ mL Free T4 1.69 (0.82-1.77) ng/d L Free T3 2.4 (2.0-4.4) PG/ML Urine Color (Yellow) Urine Appearance (CLEAR) Urine pH (5-7) Ur Specific Gravit y (1.005-1.030) Urine Protein (Negative) Urine Glucose (UA) (Normal) Urine Ketones (Negative) Urine Blood (Negative) Urine Nitrate (Negative) Urine Bilirubin (Negative) Urine Urobilinogen (Negative) mg/dL Ur Leukocyte Yara ase (Negative) Urine RBC (0-2) /hpf Urine WBC (0-5) /hpf Ur Squamous Epith Cells (0-5) /hpf Amorphous Sediment Urine Bacteria (NONE) /hpf Serum Ketones (Negative) 07/17/20 07/17/20 Range/Units 13:15 14:15 WBC (4.0-10.0) 10^3/ uL RBC (4.1-5.3) 10^6/u L Hgb (11.5-15.3) g/dL Hct (37.0-47.0) % MCV (81-99) fL MCH (28.0-34.0) pg MCHC (30.0-36.0) g/dL RDW (12.1-15.1) % Plt Count (130-400) 10^3/c mm MPV (7.4-10.4) fL Neut % (Auto) % Lymph % (Auto) % Creek % (Auto) % Eos % (Auto) % Baso % (Auto) % Neut # (Auto) (1.8-7.7) 10^3/u L Lymph # (Auto) (0.8-4.8) 10^3/u L Creek # (Auto) (0.2-0.9) 10^3/u L Eos # (Auto) (0.0-0.8) 10^3/u L Baso # (Auto) (0.0-0.1) 10^3/u L Nucleated RBC % (a uto) % Nucleated RBCs # /100WBC Specimen Type Sample Site O2 Sat Pulse Oxime try % ABG pH (7.35-7.45) ABG pCO2 (35-45) mmHg ABG pO2 (80.0-100.0) mmH g ABG HCO3 (22-26) mmol/L ABG O2 Saturation ABG Base Excess (-2.0-2.0) mmol/ L Jason Test A-a O2 Gradient (5-10) mmHg Hematocrit (37-47) % Hgb O2 Saturation (95-100) % Carboxyhemoglobin (0.4-20.1) %THgb Methemoglobin (0.4-1.5) % Total Hemoglobin (12-16) g/dL Ionized Calcium (1.1-1.4) mmol/L O2 Delivery Device FiO2 % Liquid Floor And Wall Applier ID Sodium (136-145) mmol/L Potassium (3.5-5.1) mmol/L Chloride (98-107) mmol/L Carbon Dioxide (22-29) mmol/L Anion Gap (5-19) BUN (6-20) mg/dL Creatinine (0.5-0.9) mg/dL GFR Calculation (90-130) mL/min Glucose (65-115) mg/dL Calculated Osmolal ity (285-295) mOsm/k g Lactic Acid (0.5-2.2) mmol/L Calcium (8.5-10.5) mg/dL Magnesium (1.7-2.3) mg/dL Iron (37-145) ug/dL TIBC mcg/dl % Saturation (20-50) % Unsat Iron Binding (112-347) ug/dL Total Bilirubin (0.15-1.2) mg/dL AST (0-32) U/L ALT (0-33) U/L Alkaline Phosphata se (35-105) IU/L Creatine Kinase (26-192) U/L Troponin T Baselin e (0-10) ng/L Troponin T 120 Min tlingit & haida 158.0 H (0-10) ng/L Delta Troponin T -16.0 L (0-10) ABS# NT-Pro-B Natriuret Pep (0-125) pg/mL Total Protein (6.6-8.7) g/dL Albumin (3.5-5.2) g/dL Globulin (1.3-4.6) g/dL Lipase (13-60) U/L Procalcitonin (0-0.5) ng/mL TSH (0.27-4.20) uIU/ mL Free T4 (0.82-1.77) ng/d L Free T3 (2.0-4.4) PG/ML Urine Color Raquel (Yellow) Urine Appearance Sl hazy (CLEAR) Urine pH 5 (5-7) Ur Specific Gravit y 1.015 (1.005-1.030) Urine Protein 3+ H (Negative) Urine Glucose (UA) 4+ H (Normal) Urine Ketones Negative (Negative) Urine Blood Neg (Negative) Urine Nitrate Negative (Negative) Urine Bilirubin 1+ H (Negative) Urine Urobilinogen Norm (Negative) mg/dL Ur Leukocyte Yara ase 1+ H (Negative) Urine RBC 15-25 H (0-2) /hpf Urine WBC >100 H (0-5) /hpf Ur Squamous Epith Cells 25-40 H (0-5) /hpf Amorphous Sediment Not Reportable Urine Bacteria 1+ H (NONE) /hpf Serum Ketones (Negative) Discharge Plan Discharge Patient Disposition: Admitted As Inpatient Admit Provider: Neeta Jeronimo Clinical Impression: Acute hypotension, ESRD (end stage renal disease), Diverticulitis, Nausea & vomiting Condition: Stable Discharge Diet: Advance as tolerated and GI Soft Discharge Activity: Resume usual activity Coding Level of Care Code ED Production Worker for Yarelig Fwd Exam Comprehensive
[2020-07-17] MEDS: metoclopramide 5 mg/mL SDV 2 mL 10 MG IVP (12:56)
[2020-07-17] MEDS: ondansetron 2 mg/ML SDV 2 mL 4 MG IVP (12:56)
[2020-07-17] MEDS: sodium chloride 0.9% 1,000 ML 999 ML IV (12:56)
[2020-07-17 12:57] LABS: Basophils # 0.1 10^3/uL (0.0-0.1); Basophils % 1.2 %; Eosinophils # 0.2 10^3/uL (0.0-0.8); Eosinophils % 2.3 %; Hematocrit 39.9 % (37.0-47.0); Hemoglobin 13.5 g/dL (11.5-15.3); Lymphocytes # 2.5 10^3/uL (0.8-4.8); Lymphocytes % 29.7 %; Mean Corpuscular HGB Conc 33.8 g/dL (30.0-36.0); Mean Corpuscular Hemoglobin 32.2 pg (28.0-34.0); Mean Corpuscular Volume 95.2 fL (81-99); Mean Platelet Volume 11.9 fL (7.4-10.4); Monocytes # 0.7 10^3/uL (0.2-0.9); Monocytes % 8.1 %; Neutrophils # 4.92 10^3/uL (1.8-7.7); Neutrophils % 58.2 %; Nucleated Red Blood Cells % 0 %; Platelet Count 291 10^3/cmm (130-400); Red Blood Count 4.19 10^6/uL (4.1-5.3); Red Cell Distribution Width 12.7 % (12.1-15.1); White Blood Count 8.4 10^3/uL (4.0-10.0)
[2020-07-17 13:02] LABS: Ketone (Acetest) Serum Negative (Negative)
--- NOTE | 2020-07-17 13:03 | PC.NURSE ---
US guided IV started in left upper arm. Good blood return. Pt tolerated well.
[2020-07-17 13:14] LABS: Alanine Aminotransferase 41 U/L (0-33); Albumin Level 3.4 g/dL (3.5-5.2); Alkaline Phosphatase 132 IU/L (35-105); Anion Gap 22.3 (5-19); Aspartate Amino Transferase 47 U/L (0-32); Blood Urea Nitrogen 21 mg/dL (6-20); Calcium 10.1 mg/dL (8.5-10.5); Carbon Dioxide 25 mmol/L (22-29); Chloride 87 mmol/L (98-107); Creatine Phosphokinase 33 U/L (26-192); Glomerular Filtration Rate 6.4 mL/min (90-130); Glucose 272 mg/dL (65-115); Lipase 47 U/L (13-60); Magnesium 1.4 mg/dL (1.7-2.3); Osmolality Calculated 285 mOsm/kg (285-295); Potassium 3.3 mmol/L (3.5-5.1); Sodium 131 mmol/L (136-145); Total Bilirubin 0.6 mg/dL (0.15-1.2); Total Protein 7.4 g/dL (6.6-8.7)
[2020-07-17 13:27] LABS: ABG PCO2 35.7 mmHg (35-45); ABG PH Result 7.41 (7.35-7.45); HCO3 ABG 22.8 mmol/L (22-26)
[2020-07-17 13:28] LABS: Base Excess ABG -1.4 mmol/L (-2.0-2.0); Blood Gas Allen Test POS; Blood Gas Operator Identificat CAK; Oxygen Device ROOMAIR; Oxygen Saturation ABG 95.8; Potassium Level - ABG 3.1 mmol/L (3.5-5.0)
[2020-07-17 13:29] LABS: Alveolar-Arterial Oxygen Gradi 104.8 mmHg (5-10); Arterial Blood Gas Hematocrit 38.4 % (37-47); Blood Gas Sample Site LB; Blood Gas Sample Type ARTERIAL; Ionized Calcium Level - ABG 1.1 mmol/L (1.1-1.4); Total Hemoglobin 12.5 g/dL (12-16)
[2020-07-17 13:30] LABS: Carboxyhemoglobin 0.8 %THgb (0.4-20.1); HGB O2 Sat 94.2 % (95-100); Methemoglobin 0.9 % (0.4-1.5)
[2020-07-17 13:38] LABS: Troponin(5th) Baseline 174 ng/L (0-10)
[2020-07-17 13:50] LABS: Urine Color Amber (Yellow)
[2020-07-17 13:51] LABS: Add Urine Culture? No; Add Urine Microscopic? YES; Bacteria Urine 1+ /hpf; Bilirubin Urine 1+ (Negative); Blood Urine Neg (Negative); Glucose Urine UA 4+ (Normal); Ketones Urine Negative (Negative); Leukocyte Esterase Urine 1+ (Negative); Nitrate Urine Negative (Negative); Protein Urine 3+ (Negative); RBC Urine 15-25 /hpf (0-2); Specific Gravity, Urine 1.015 (1.005-1.030); Squamous Epithelial Cell Urine 25-40 /hpf (0-5); Urine Appearance SL Hazy (CLEAR); Urobilinogen Urine Norm (Negative); WBC Urine >100 /hpf (0-5); pH Urine 5 (5-7)
--- NOTE | 2020-07-17 14:26 | ECG_ITS ---
[facility] Test Date: 2020-07-17 Pat Name: Rizwana Herzog Department: Room: Gender: Female Clinical Research Tech: : [id number] Requested By: Karan Lepe Order Number: [id number] Catherine MD: Soraya Ignacio M.D. Measurements Intervals [place] Rate: 87 P: -33 VA: 175 QRS: -81 QRSD: 78 T: -16 QT: 362 QTc: 438 Interpretive Statements SINUS RHYTHM INFERIOR MYOCARDIAL INFARCTION , OF INDETERMINATE AGE [40+ ms Q WAVE AND/OR ST/T ABNORMALITY IN II/aVF] ANTEROLATERAL MYOCARDIAL INFARCTION , PROBABLY OLD [40+ ms Q WAVE IN I/aVL/V3-V6] Compared to ECG 07/17/2020 12:19:34 Ectopic atrial rhythm no longer present Myocardial infarct finding still present Electronically Signed On 07-18-2020 7:37:40 PYTHON DEVELOPER by Soraya Ignacio M.D. [id number]
--- NOTE | 2020-07-17 15:05 | CT_ITS ---
WS: [id number] CT ABDOMEN PELVIS TECHNIQUE: Noncontrast CT of the abdomen and pelvis with coronal and sagittal reformatted images. CLINICAL INFORMATION: flank pain COMPARISON: CT July 10, 2020 DLP: 1768.[address] scans at [facility] use at least one of these dose optimization techniques: automat ed exposure control; mA and/or kV adjustment per patient size (includes targeted exams where dose is matched to clinical indication); or iterative reconstruction. FINDINGS: Prior postoperative changes hysterectomy and cholecystectomy. Noncontrast liver is normal. Mild perit farmer ascites. Perihepatic/perisplenic ascites. Small esophageal hiatal hernia. Coronary calcificatio n. Subsegmental atelectasis right lower lobe. Adrenal glands are normal. Bilateral renal cortical atrophy. Vascular calcification. No hydronephrosi s in right kidney. Right ureter is decompressed. No hydronephrosis left kidney. Left ureter is decomp ressed. No obstructing renal or ureteral calculi. Cholecystectomy clips. Mild fatty atrophy of the pancreas. Splenic artery calcifications. Sigmoid diverticulosis. Inflammatory stranding and edema about the sigmoid colon left lower quadrant suspicious for mild diverticulitis. No drainable fluid collections or abscess. Fat-containing umbilical hernia with a small amount of fluid unchanged from previous. Peritoneal dial ysis catheter. CT/CT kidney stone [id number] IMPRESSION: 1. Suspected mild acute diverticulitis left lower quadrant sigmoid colon. No d rainable abscess or fluid collection. Recommend correlation for infection. 2. No obstructing renal or ureteral calculi. No hydronephrosis in either kidne y. Bilateral renal cortical atrophy. 3. Mild to moderate peritoneal ascites. 4. Peritoneal dialysis catheter. 5. Fat-containing umbilical hernia with small amount of fluid unchanged. 6. Prior hysterectomy and cholecystectomy. Attempted notification Karan Daniels DO at 07/17/2020 3:35 PM.
[2020-07-17] MEDS: cefTRIAXone 2,000 MG in sodium chloride 0.9% (plus) 50 ML 100 MG IV (15:25)
[2020-07-17] MEDS: ciprofloxacin 400 MG/200 ML PREMIX 200 MG IV (16:29)
[2020-07-17] MEDS: metroNIDAZOLE IV 500 MG/100 ML PREMIX 100 MG IV (16:29)
[2020-07-17 16:30] LABS: Lactic Sepsis W/Reflex 5.4 mmol/L (0.5-2.2)
--- NOTE | 2020-07-17 16:38 | PM.HP ---
Providers/Chief Complaint Primary Care Provider: Yovany Leonardo MD Chief Complaint: N/V/Chest tighness History of Present Illness Rizwana Herzog is a 55 year old female with PMH of end-stage renal disease on peritoneal dialysis, hypertension, insulin-dependent diabetes mellitus type 2 status post right below-knee amputation and known history of coronary artery disease status post PCI with most recently in Apr 2020, anemia of end-stage renal disease, hypothyroidism, depression/anxiety, gastroesophageal reflux disease, peripheral vascular disease status post left foot toe amputation, diastolic congestive heart failure and hyperlipidemia.Patient was recently discharged from the hospital on July 13 when she was admitted for 4 days because of dizziness and abdominal pain. Prior to that she was admitted at [facility] in early June for PD peritonitis. She presents to the ER again today complaining of nausea and vomiting with unable to keep anything down since last night. Patient states since her discharge only thing she can eat is Jell-O and few liquids. She has been complaining of occasional abdominal pain but denies any diarrhea. Today morning she was not even able to keep her medications down so she presented to the ER. She is complaining of dizziness today though she was not having the dizziness to last night. Patient denies any fever, subjective feeling of fever, headache, diarrhea, flulike symptoms, cough. She does her peritoneal dialysis overnight and states her dialysis sessions have remained same. She is not really sure what is the usual intake and output at present. She is also not sure of the fluid is clear or not. Vomitus contained food particles, nonbilious not foul-smelling not bloodstained. Patient states he makes occasional urine but has not been able to make any urine for last 4 to 5 days. Denies any dysuria, urinary hesitancy or pain while passing urine. Blood work in the ER showed a hemoglobin of 13.5, white count of 8.4, platelet count of 291, ABG showing a PO2 of 78, PCO2 of 35, sodium of 131, potassium of 3.3, BUN of 21, creatinine of 6.7, glucose of 272, lactic of 5.4, calcium of 10.1, magnesium of 1.4, AST/ALT of 47/41 with alkaline phosphatase of 132, baseline troponin of 174 coming down to 158 with a troponin delta of -16 in 2 hours, urinalysis negative for nitrite, 1+ leuk esterase with more than [address] abdomen pelvis was done which showed mild acute diverticulitis of left lower sigmoid colon without drainable abscess or fluid collection, nonobstructive renal calculi with cholecystectomy clips, mild fatty atrophy of pancreas and splenic artery calcifications. In the ER patient was found to have a systolic blood pressure of 60 after which she was given 2 L fluid bolus and oral midodrine dose. Her blood pressure improved to 117 systolic on my examination. Patient is lying comfortably in bed with heart rate of 76 bpm and saturation 95% on room air. Review of Systems General: Reports: 10 or more systems reviewed and unremarkable except in HPI and below Const: Denies: fever(s), chills, body aches, change in appetite, change in weight, malaise, night sweats, diaphoresis, change in sleep pattern, daytime sleepiness or snoring Eyes: Denies: change in vision, blurry vision, photophobia, eye discomfort or eye discharge ENMT: Denies: throat pain, enlarged tonsils, hoarseness, mouth pain, oral sores, dry mouth, tinnitus, nasal congestion or post nasal drip Card: Denies: chest pain, palpitations, irregular heart rhythm, edema, swelling of feet/ankles, lightheadedness, syncope, pre-syncope, dyspnea on exertion, orthopnea, leg pain with exertion or acrocyanosis Resp: Denies: dyspnea, productive cough, non-productive cough, wheezing, stridor, pain on inspiration, change in phlegm color, hemoptysis or chest congestion GI: Denies: abdominal pain, nausea, vomiting, hematemesis, coffee ground emesis, dysphagia, heartburn, diarrhea, constipation, bloating, GI cramping, change in bowel habits, pain on defecation, hematochezia or melena : Denies: flank pain, dysuria, urinary frequency, urinary urgency, urinary hesitancy, nocturia or hematuria Musc: Denies: neck pain, back pain, extremity pain, joint pain, joint swelling, joint redness, joint stiffness or limited range of motion Neuro: Denies: headache(s), numbness in extremities, weakness in extremities, sensory changes, lack of coordination, difficulty walking, frequent falls, dizziness, vertigo, confusion, Slurred speech present, difficulty communicating thoughts or seizure-like activity Psych: Denies: anxiety, depression, mood swings, panic attacks, hopelessness or irritability Endo: Denies: polyuria, polydipsia, tired all the time, cold intolerance, excessive sweating, flushing or heat intolerance Refugio/Lymph: Denies: easy bruising or easy bleeding All/Imm: Denies: tongue swelling, facial swelling or acute wheezing Medications/Allergies Home Medications Medication Instructions Recorded Confirmed Last Taken Type aspirin 81 mg PO DAILY@06/25/19 07/17/20 07/16/20 History multivitamin [Multiple Vitamins] 1 tab PO DAILY@06/30/19 07/17/20 07/16/20 History ferric citrate 210 mg iron tablet See Rx Instructions .ROUTE 09/06/19 07/17/20 07/16/20 History .COMPLEX tab coenzyme Q10 [CoQ-10] 100 mg PO DAILY@01/17/20 07/17/20 07/16/20 History omega 9-fbw-dsm-fish oil [Fish Oil] 1 cap PO BID@01/17/20 07/17/20 07/16/20 History brimonidine 1 drp OPHTHALMIC (EYE) BID@01/31/20 07/17/20 07/16/20 History dorzolamide-timolol 1 drp OPHTHALMIC (EYE) BID@01/31/20 07/17/20 07/16/20 History pantoprazole 40 mg PO DAILY@02/16/20 07/17/20 07/17/20 History nitroglycerin 0.4 mg sublingual 0.4 mg SUBLINGUAL Q5M PRN #25 tab 03/26/20 07/17/20 04/18/20 Rx tablet Rocklatan 1 drp OPHTHALMIC (EYE) DAILY@04/18/20 07/17/20 07/16/20 History sennosides-docusate sodium 2 tab PO BID PRN 04/18/20 07/17/20 04/28/20 History sevelamer carbonate 800 mg PO TID 04/29/20 07/17/20 07/16/20 History atorvastatin 40 mg PO DAILY@05/14/20 07/17/20 07/16/20 History cholecalciferol (vitamin D3) 25 mcg PO DAILY@05/14/20 07/17/20 07/16/20 History [Vitamin D3] paricalcitol 1 mcg capsule 1 mcg PO DAILY cap 05/22/20 07/17/20 07/16/20 History insulin glargine 100 unit/mL (3 50 unit SUBCUT BID@ #15 ml 06/17/20 07/17/20 07/16/20 Rx mL) subcutaneous pen clopidogrel 75 mg PO DAILY@08 07/10/20 07/17/20 07/16/20 History levothyroxine 224 mcg PO DAILY@0800 07/10/20 07/17/20 07/16/20 History midodrine 5 mg PO TID@07/10/20 07/17/20 07/16/20 History potassium chloride 10 meq PO DAILY@07/10/20 07/17/20 07/16/20 History Allergies Allergy/AdvReac Type Severity Reaction Status Date / Time metformin [From Glucophage] Allergy Severe Unknown Verified 07/10/20 14:25 venlafaxine [From Effexor] Allergy Severe ADR-Shakine Verified 07/10/20 14:25 ss PFSH Acute PFSH: Medical History (Updated 07/17/20 @ 22:40 by Neeta Jeronimo MD) Anxiety BPPV (benign paroxysmal positional vertigo) CAD (coronary artery disease) Carotid stenosis Chronic diastolic CHF (congestive heart failure) Chronic left sacroiliac joint pain Claustrophobia Depression End stage renal disease peritoneal dialysis ESBL (extended spectrum beta-lactamase) producing bacteria infection Gastroparesis GERD (gastroesophageal reflux disease) HTN (hypertension) Hyperlipidemia Hypothyroidism Insulin dependent diabetes mellitus DOROTEO on CPAP Partial nontraumatic amputation of left foot (~06/2019) Peripheral vascular disease Phantom pain Suicidal ideation TIA (transient ischemic attack) Vitamin D deficiency Surgical History (Updated 07/17/20 @ 22:39 by Neeta Jeronimo MD) H/O hysterectomy with oophorectomy History of appendectomy History of heart artery stent History of hysterectomy History of left heart catheterization History of right below knee amputation Peritoneal dialysis catheter in place S/P cholecystectomy S/P PICC central line placement Status post amputation of toe Family History Denies family history of CAD (coronary artery disease) Clotting disorder Dementia Bleeding disorder Social History Smoking and tobacco status: never smoked Alcohol intake: never Household members: spouse and family History of recent travel: No Vitals/I&O/Wt Last Vital Signs Temp 97.6 F 07/17/20 12:23 Pulse 89 07/17/20 15:03 Resp 18 07/17/20 15:03 BP 99/82 07/17/20 15:03 Pulse Ox 95 07/17/20 15:03 07/17/20 07/17/20 07/17/20 06:59 14:59 22:59 Intake Total 1000 / 1000 Balance 1000 / 1000 Weight last 48 hrs Weight 83.915 kg Physical Exam Narrative: EXAM NARRATIVE: General: No acute distress, AO x3, tired looking HEENT: PERRLA, pupils bilaterally equal and reactive Chest: Normal vesicular breath sounds, no added sounds, equal good air entry bilaterally CVS: S1-S2 regular, no murmurs, no tachycardia, no gallops, no rubs Abdomen: Soft, nontender, no organomegaly, bowel sounds present but sluggisg, PD catherter in place, no discharge or granulation tissue around site of insertion. Neuro: No focal deficits, no facial deformity, AO x3, power 5/5 in all limbs Data : 07/18/20 05:49 07/18/20 05:49 Other Labs: Laboratory Results WBC 8.4 10^3/uL (4.0-10.0) 07/17/20 12:30 RBC 4.19 10^6/uL (4.1-5.3) 07/17/20 12:30 Hgb 13.5 g/dL (11.5-15.3) 07/17/20 12:30 Hct 39.9 % (37.0-47.0) 07/17/20 12:30 MCV 95.2 fL (81-99) 07/17/20 12:30 MCH 32.2 pg (28.0-34.0) 07/17/20 12:30 MCHC 33.8 g/dL (30.0-36.0) 07/17/20 12:30 RDW 12.7 % (12.1-15.1) 07/17/20 12:30 Plt Count 291 10^3/cmm (130-400) 07/17/20 12:30 MPV 11.9 fL (7.4-10.4) H 07/17/20 12:30 Neut % (Auto) 58.2 % 07/17/20 12:30 Lymph % (Auto) 29.7 % 07/17/20 12:30 [place] % (Auto) 8.1 % 07/17/20 12:30 Eos % (Auto) 2.3 % 07/17/20 12:30 Baso % (Auto) 1.2 % 07/17/20 12:30 Neut # (Auto) 4.92 10^3/uL (1.8-7.7) 07/17/20 12:30 Lymph # (Auto) 2.5 10^3/uL (0.8-4.8) 07/17/20 12:30 [place] # (Auto) 0.7 10^3/uL (0.2-0.9) 07/17/20 12:30 Eos # (Auto) 0.2 10^3/uL (0.0-0.8) 07/17/20 12:30 Baso # (Auto) 0.1 10^3/uL (0.0-0.1) 07/17/20 12:30 Nucleated RBC % (auto) 0 % 07/17/20 12:30 Nucleated RBCs # 0.0 /100WBC 07/17/20 12:30 Specimen Type Arterial 07/17/20 13:14 Sample Site Lb 07/17/20 13:14 O2 Sat Pulse Oximetry 95.8 % 07/17/20 13:14 ABG pH 7.41 (7.35-7.45) 07/17/20 13:14 ABG pCO2 35.7 mmHg (35-45) 07/17/20 13:14 ABG pO2 78.0 mmHg (80.0-100.0) L 07/17/20 13:14 ABG HCO3 22.8 mmol/L (22-26) 07/17/20 13:14 ABG O2 Saturation 95.8 07/17/20 13:14 ABG Base Excess -1.4 mmol/L (-2.0-2.0) 07/17/20 13:14 Jason Test Pos 07/17/20 13:14 A-a O2 Gradient 104.8 mmHg (5-10) H 07/17/20 13:14 Hematocrit 38.4 % (37-47) 07/17/20 13:14 Hgb O2 Saturation 94.2 % (95-100) L 07/17/20 13:14 Carboxyhemoglobin 0.8 %THgb (0.4-20.1) 07/17/20 13:14 Methemoglobin 0.9 % (0.4-1.5) 07/17/20 13:14 Total Hemoglobin 12.5 g/dL (12-16) 07/17/20 13:14 Sodium 135.0 mmol/L (131-143) 07/17/20 13:14 Potassium 3.1 mmol/L (3.5-5.0) L 07/17/20 13:14 Glucose 277.0 mg/dL (70-115) H 07/17/20 13:14 Ionized Calcium 1.1 mmol/L (1.1-1.4) 07/17/20 13:14 O2 Delivery Device Roomair 07/17/20 13:14 FiO2 21.0 % 07/17/20 13:14 Report Developer ID Cak 07/17/20 13:14 Sodium 131 mmol/L (136-145) L 07/17/20 12:30 Potassium 3.3 mmol/L (3.5-5.1) L 07/17/20 12:30 Chloride 87 mmol/L (98-107) L 07/17/20 12:30 Carbon Dioxide 25 mmol/L (22-29) 07/17/20 12:30 Anion Gap 22.3 (5-19) H 07/17/20 12:30 BUN 21 mg/dL (6-20) H 07/17/20 12:30 Creatinine 6.7 mg/dL (0.5-0.9) H* 07/17/20 12:30 GFR Calculation 6.4 mL/min (90-130) L 07/17/20 12:30 Glucose 272 mg/dL (65-115) H 07/17/20 12:30 Calculated Osmolality 285 mOsm/kg (285-295) 07/17/20 12:30 Lactic Acid 5.4 mmol/L (0.5-2.2) H* 07/17/20 12:30 Calcium 10.1 mg/dL (8.5-10.5) 07/17/20 12:30 Magnesium 1.4 mg/dL (1.7-2.3) L 07/17/20 12:30 Total Bilirubin 0.6 mg/dL (0.15-1.2) 07/17/20 12:30 AST 47 U/L (0-32) H 07/17/20 12:30 ALT 41 U/L (0-33) H 07/17/20 12:30 Alkaline Phosphatase 132 IU/L (35-105) H 07/17/20 12:30 Creatine Kinase 33 U/L (26-192) 07/17/20 12:30 Troponin T Baseline 174 ng/L (0-10) H* 07/17/20 12:30 Troponin T 120 Minute 158.0 ng/L (0-10) H 07/17/20 14:15 Delta Troponin T -16.0 ABS# (0-10) L 07/17/20 14:15 Total Protein 7.4 g/dL (6.6-8.7) 07/17/20 12:30 Albumin 3.4 g/dL (3.5-5.2) L 07/17/20 12:30 Globulin 4.0 g/dL (1.3-4.6) 07/17/20 12:30 Lipase 47 U/L (13-60) 07/17/20 12:30 Urine Color Raquel (Yellow) 07/17/20 13:15 Urine Appearance Sl hazy (CLEAR) 07/17/20 13:15 Urine pH 5 (5-7) 07/17/20 13:15 Ur Specific Fate 1.015 (1.005-1.030) 07/17/20 13:15 Urine Protein 3+ (Negative) H 07/17/20 13:15 Urine Glucose (UA) 4+ (Normal) H 07/17/20 13:15 Urine Ketones Negative (Negative) 07/17/20 13:15 Urine Blood Neg (Negative) 07/17/20 13:15 Urine Nitrate Negative (Negative) 07/17/20 13:15 Urine Bilirubin 1+ (Negative) H 07/17/20 13:15 Urine Urobilinogen Norm mg/dL (Negative) 07/17/20 13:15 Ur Leukocyte Esterase 1+ (Negative) H 07/17/20 13:15 Urine RBC 15-25 /hpf (0-2) H 07/17/20 13:15 Urine WBC >100 /hpf (0-5) H 07/17/20 13:15 Ur Squamous Epith Cells 25-40 /hpf (0-5) H 07/17/20 13:15 Amorphous Sediment Not Reportable 07/17/20 13:15 Urine Bacteria 1+ /hpf (NONE) H 07/17/20 13:15 Serum Ketones Negative (Negative) 07/17/20 12:30 Impressions Chest X-Ray 07/17/20 12:26 Impression: Atherosclerosis. Abdomen/Pelvis CT 07/17/20 15:05 IMPRESSION: 1. Suspected mild acute diverticulitis left lower quadrant sigmoid colon. No drainable abscess or fluid collection. Recommend correlation for infection. 2. No obstructing renal or ureteral calculi. No hydronephrosis in either kidney. Bilateral renal cortical atrophy. 3. Mild to moderate peritoneal ascites. 4. Peritoneal dialysis catheter. 5. Fat-containing umbilical hernia with small amount of fluid unchanged. 6. Prior hysterectomy and cholecystectomy. Attempted notification Karan Daniels DO at 07/17/2020 3:35 PM. Micro: Microbiology 07/17/20 14:15 Blood Culture - Preliminary Blood SPECIMEN COLLECTED 07/17/20 14:00 Blood Culture - Preliminary Blood SPECIMEN COLLECTED A&P Assessment and plan (1) Vomiting: Status: Acute (2) Diverticulitis: Status: Acute (3) Acute hypotension: Status: Acute (4) ESRD (end stage renal disease): Status: Chronic (5) Peritoneal dialysis catheter in place: Status: Chronic (6) Diabetes: Status: Chronic (7) Gastroparesis due to DM: Status: Chronic (8) Chronic diastolic CHF (congestive heart failure): Status: Inactive (9) CAD (coronary artery disease): Status: Chronic Qualifiers: Associated angina: without angina Coronary Disease-Associated Artery/Lesion type: [place] artery [place] vs. transplanted heart: [place] heart Qualified Code(s): I25.10 - Atherosclerotic heart disease of [place] coronary artery without angina pectoris (10) Elevated lactic acid level: Status: Inactive (11) Elevated troponin: Status: Inactive Additional A&P Information Nausea and vomiting 55-year-old female with past medical history of diabetic gastroparesis, ESRD on peritoneal dialysis, orthostatic hypotension on midodrine, CAD post PCI, diastolic heart failure presented to the ER with episodes of vomiting overnight and dizziness found to be hypotensive. Vomiting: Could be multifactorial. Can be secondary to advanced gastroparesis from diabetes. Can be secondary to diverticulitis as seen on abdominal CT scan. Cannot rule out PD peritonitis though was not present on admission 2 weeks ago but was treated for PD peritonitis last month at [facility]. Patient has elevated lactate but abdomen is benign on examination so chances of bowel ischemia are extremely low. Moreover patient does not have any elevated white count at present. Continue with IV hydration with normal saline at 75 cc an hour. Will monitor for fluid overload. For now start patient on vancomycin, imipenem as patient has a history of ESBL Klebsiella in the past. Check blood cultures, urine culture, MRSA swab, procalcitonin, TSH, repeat lactate in 2 hours. Also check peritoneal fluid for analysis, Gram stain, protein, LDH. We will de-escalate antibiotics as per the culture results. Start patient on Reglan 5 mg IV every 6 hours as needed, Zofran as needed, Pepcid IV twice daily. Full liquid diet for now carb consistent renal dialysis diet. Will advance if patient is able to tolerate tomorrow. Hypotension: Most likely secondary to dehydration and unable to take her daily dose of midodrine. Blood pressure is already better after fluid bolus. Continue fluid as above. Start patient on midodrine 5 mg 3 times daily at home dose. Continue to monitor blood pressures. Keep mean arterial pressures over 65 with goal blood pressure less than 140/90 mmHg. CAD/post PCI: No active chest pain. Continue home medication of aspirin, Plavix, statin. Type 2 diabetes mellitus with gastroparesis: Reglan as above. Insulin sliding scale at moderate dose before meals and at bedtime. Home dose of glargine 50 units twice daily. Elevated lactate level: Most likely secondary to end-stage renal disease and ongoing diverticulitis. Continue fluid bolus and will repeat in 2 hours. As above chances of abdominal ischemia are low. If lactate continues to remain high will do CT abdomen with contrast. CODE STATUS: Full code. Full liquid diet. Heparin 5000 every 12 for DVT prophylaxis. Pepcid for PUD prophylaxis. Admit to ICU for BP monitoring Attestations Medical Necessity Statement*: More than 2 midnights for treatment and evaluation of vomiting leading to poor oral intake, unable to keep meds down leading to hypotention Time Spent in Patient Care: Greater than 35 minutes (>than 50% of time spent in counselling and/or direct pt care on unit). Coding Level of Care Code Acute Call Center Trainer for Chg Fwd Diagnoses Vomiting R11.10 Diverticulitis K57.92 Acute hypotension I95.9 ESRD (end stage renal disease) N18.6 Peritoneal dialysis catheter in place Z99.2 Diabetes E11.9 Gastroparesis due to DM E11.43; K31.84 Chronic diastolic CHF (congestive heart failure) I50.32 CAD (coronary artery disease) I25.10 Associated angina: without angina Coronary Disease-Associated Artery/Lesion type: [place] artery [place] vs. transplanted heart: [place] heart Elevated lactic acid level R79.89 Elevated troponin R77.8
[2020-07-17] MEDS: midodrine 5 mg TABLET PO ×2 (16:41→23:41)
[2020-07-17 17:53] LABS: Reflex Lactate Order REFLEX LACTIC ORDERD
[2020-07-17 18:19] LABS: NT Pro B Type Natriuretic Pept 5655 pg/mL (0-125); Procalcitonin 0.41 ng/mL (0-0.5)
[2020-07-17 18:21] LABS: Thyroid Stimulating Hormone 17.08 uIU/mL (0.27-4.20)
--- NOTE | 2020-07-17 18:26 | ECG_ITS ---
[facility] Test Date: 2020-07-17 Pat Name: Rizwana Herzog Department: Room: Gender: Female [employer] Operator: : [id number] Requested By: Karan Lepe Order Number: [id number] Catherine MD: Soraya Ignacio M.D. Measurements Intervals [place] Rate: 75 P: -43 AK: 187 QRS: -60 QRSD: 78 T: 234 QT: 384 QTc: 429 Interpretive Statements SINUS RHYTHM INFERIOR MYOCARDIAL INFARCTION , OF INDETERMINATE AGE [40+ ms Q WAVE AND/OR ST/T ABNORMALITY IN II/aVF] ANTEROLATERAL MYOCARDIAL INFARCTION , OF INDETERMINATE AGE [40+ ms Q WAVE IN I/aVL/V3-V6] Compared to ECG 07/17/2020 14:37:17 No significant changes Electronically Signed On 07-18-2020 7:36:46 ELECTRIC SIGN ASSEMBLER by Soraya Ignacio M.D. [id number]
[2020-07-17 19:32] LABS: Free T4 Free Thyroxine 1.69 ng/dL (0.82-1.77); T3 Free 2.4 PG/ML (2.0-4.4)
[2020-07-17 20:28] LABS: Troponin 5 6HR 152.9 ng/L (0-10); Troponin 5 6HR Delta -21.1 ng/L (0-12)
[2020-07-17 21:20] LABS: Iron 123 ug/dL (37-145); Percent Saturation 55.4 % (20-50); Total Iron Binding Capacity 222 mcg/dl; Unsaturated Iron Binding 99 ug/dL (112-347)
--- NOTE | 2020-07-17 22:26 | PC.NURSE ---
Arrived from ED via stretcher, transferred to bed from via lift sheet, AO x4, denies SOB RA, answers questions, follows commands, denies N/V at this time, supine 30 degrees call light within reach
[2020-07-17 23:28] LABS: Glucose Point of Care 231 mg/dL (70-110)
[2020-07-17] MEDS: sevelamer 800 mg Tablet PO (23:41)
[2020-07-17] MEDS: atorvastatin 40 mg Tablet PO (23:42)
[2020-07-17] MEDS: famotidine 20 mg/2 mL INJ IVP (23:44)
[2020-07-18] VITALS (20 sets, daily range): BP systolic 92–176; BP diastolic 57–96; PULSE 58–84; RESP 11–20; TEMP 36.4–36.8; O2SAT 94–100
[2020-07-18] MEDS: sodium chloride 0.9% 1,000 ML 75 ML IV (00:05)
[2020-07-18] MEDS: insulin glargine 100 units/1 mL 50 UNIT SUBCUT ×2 (01:20→18:30)
[2020-07-18] MEDS: vancomycin 1,500 MG/300 ML PIGGYBACK 200 MG IV (01:24)
--- NOTE | 2020-07-18 01:27 | PC.PHAR ---
RENAL DOSING FOR PRIMAXIN 250MG Q6H CHANGED TO Q12H DUE TO CRCL 10.03
[2020-07-18 05:58] LABS: Basophils # 0.1 10^3/uL (0.0-0.1); Eosinophils # 0.3 10^3/uL (0.0-0.8); Eosinophils % 4.4 %; Hematocrit 31.4 % (37.0-47.0); Hemoglobin 10.5 g/dL (11.5-15.3); Lymphocytes # 1.8 10^3/uL (0.8-4.8); Lymphocytes % 25.9 %; Mean Corpuscular HGB Conc 33.4 g/dL (30.0-36.0); Mean Corpuscular Hemoglobin 32.4 pg (28.0-34.0); Mean Corpuscular Volume 96.9 fL (81-99); Mean Platelet Volume 11.1 fL (7.4-10.4); Monocytes # 0.6 10^3/uL (0.2-0.9); Monocytes % 8.4 %; Neutrophils # 4.19 10^3/uL (1.8-7.7); Neutrophils % 59.9 %; Nucleated Red Blood Cells % 0 %; Platelet Count 202 10^3/cmm (130-400); Red Blood Count 3.24 10^6/uL (4.1-5.3); Red Cell Distribution Width 12.8 % (12.1-15.1)
[2020-07-18 06:17] LABS: Alanine Aminotransferase 37 U/L (0-33); Albumin Level 2.6 g/dL (3.5-5.2); Alkaline Phosphatase 98 IU/L (35-105); Anion Gap 17.1 (5-19); Aspartate Amino Transferase 35 U/L (0-32); Blood Urea Nitrogen 24 mg/dL (6-20); Calcium 8.7 mg/dL (8.5-10.5); Carbon Dioxide 24 mmol/L (22-29); Chloride 95 mmol/L (98-107); Globulin 3.2 g/dL (1.3-4.6); Glomerular Filtration Rate 6.1 mL/min (90-130); Glucose 103 mg/dL (65-115); Osmolality Calculated 280 mOsm/kg (285-295); Potassium 3.1 mmol/L (3.5-5.1); Sodium 133 mmol/L (136-145); Total Bilirubin 0.3 mg/dL (0.15-1.2); Total Protein 5.8 g/dL (6.6-8.7)
--- NOTE | 2020-07-18 06:24 | PC.NURSE ---
Critical Creatinine 7.0 reported to Jocelyn Lr given to not call critical Creatinine
[2020-07-18 07:33] LABS: Cortisol Random 8.27 ug/dL (2.47-19.5)
[2020-07-18 08:16] LABS: Glucose Point of Care 110 mg/dL (70-110)
--- NOTE | 2020-07-18 09:03 | P.PN_ITS ---
Subjective Subjective: Interval history: No acute events overnight. Patient remained comfortable. Blood pressures have remained more with mean arterial pressure more than 65. On examination today patient had just finished her breakfast. She had GI soft diet and after that she had 2 episodes of nausea with mild vomiting. Otherwise she states she is feeling little better than yesterday. Vitals/I&O/Wt Last Vital Signs Temp 98.8 F 07/17/20 22:29 Pulse 64 07/18/20 06:00 Resp 15 07/18/20 06:00 BP 95/57 07/18/20 06:00 Pulse Ox 100 07/18/20 06:00 07/17/20 07/18/20 07/18/20 22:59 06:59 14:59 Intake Total 2867.45 / 3867.45 Output Total 50 / 50 Balance 2867.45 / 3867.45 -50 / 3817.45 Weight last 48 hrs Weight 88.451 kg Weight 83.915 kg Physical Exam Narrative: EXAM NARRATIVE: General: No acute distress, AO x3, looking better today than yesterday HEENT: PERRLA, pupils bilaterally equal and reactive Chest: Normal vesicular breath sounds, no added sounds, equal good air entry bilaterally CVS: S1-S2 regular, no murmurs, no tachycardia, no gallops, no rubs Abdomen: Soft, nontender, no organomegaly, bowel sounds present but sluggisg, PD catherter in place, no discharge or granulation tissue around site of insertion. Neuro: No focal deficits, no facial deformity, AO x3, power 5/5 in all limbs Data : 07/18/20 05:49 07/18/20 05:49 Other Labs: Pertinent Labs During Stay 07/17/20 07/17/20 07/17/20 12:30 12:30 12:30 Lactic Acid (Sepsis) Iron 123 TIBC 222 % Saturation 55.4 H Creatine Kinase 33 NT-Pro-B Natriuret Pep 5655 H Lipase 47 Procalcitonin 0.41 TSH Free T4 Free T3 Random Cortisol Serum Ketones Negative 07/17/20 07/17/20 07/17/20 12:30 12:30 18:20 Lactic Acid (Sepsis) 4.0 H Iron TIBC % Saturation Creatine Kinase NT-Pro-B Natriuret Pep Lipase Procalcitonin TSH 17.08 H Free T4 1.69 Free T3 2.4 Random Cortisol Serum Ketones 07/18/20 07/18/20 05:49 05:49 Lactic Acid (Sepsis) Iron TIBC % Saturation Creatine Kinase NT-Pro-B Natriuret Pep Lipase Procalcitonin 0.39 TSH Free T4 Free T3 Random Cortisol 8.27 Serum Ketones Impressions Chest X-Ray 07/17/20 12:26 Impression: Atherosclerosis. Abdomen/Pelvis CT 07/17/20 15:05 IMPRESSION: 1. Suspected mild acute diverticulitis left lower quadrant sigmoid colon. No drainable abscess or fluid collection. Recommend correlation for infection. 2. No obstructing renal or ureteral calculi. No hydronephrosis in either kidney. Bilateral renal cortical atrophy. 3. Mild to moderate peritoneal ascites. 4. Peritoneal dialysis catheter. 5. Fat-containing umbilical hernia with small amount of fluid unchanged. 6. Prior hysterectomy and cholecystectomy. Attempted notification Karan Daniels DO at 07/17/2020 3:35 PM. Micro: Microbiology 07/17/20 14:15 Blood Culture - Preliminary Blood SPECIMEN COLLECTED 07/17/20 14:00 Blood Culture - Preliminary Blood SPECIMEN COLLECTED A&P Assessment and plan (1) Vomiting: Status: Acute (2) Diverticulitis: Status: Acute (3) Acute hypotension: Status: Acute (4) ESRD (end stage renal disease): Status: Chronic (5) Peritoneal dialysis catheter in place: Status: Chronic (6) Diabetes: Status: Chronic (7) Gastroparesis due to DM: Status: Chronic (8) Chronic diastolic CHF (congestive heart failure): Status: Inactive (9) CAD (coronary artery disease): Status: Chronic Qualifiers: Associated angina: without angina Coronary Disease-Associated Artery/Lesion type: [place] artery [place] vs. transplanted heart: [place] heart Qualified Code(s): I25.10 - Atherosclerotic heart disease of [place] coronary artery without angina pectoris (10) Elevated lactic acid level: Status: Inactive (11) Elevated troponin: Status: Inactive Additional A&P Information Nausea and vomiting 55-year-old female with past medical history of diabetic gastroparesis, ESRD on peritoneal dialysis, orthostatic hypotension on midodrine, CAD post PCI, diastolic heart failure presented to the ER with episodes of vomiting overnight and dizziness found to be hypotensive. Vomiting: Could be multifactorial. Most likely secondary to advanced gastroparesis from diabetes. Can be secondary to diverticulitis as seen on abdominal CT scan and cannot rule out PD peritonitis though was not present on admission 2 weeks ago but was treated for PD peritonitis last month at [facility] though patient does not have any leukocytosis or fever on admission. Patient has elevated lactate but abdomen is benign on examination so chances of bowel ischemia are extremely low. Moreover patient does not have any elevated white count at present. As patient is drinking well we will stop the IV fluids. Patient appears euvolemic at present. Follow-up blood culture, urine culture, MRSA swab. For now continue with vancomycin, imipenem as patient has a history of ESBL Klebsiella in the past. Peritoneal fluid analysis awaited. We will de-escalate antibiotics as per the culture results. Start patient on Reglan 5 mg IV every 8 hours scheduled, Zofran as needed, Pepcid IV twice daily. Full liquid diet for now carb consistent renal dialysis diet. Will advance if patient is able to tolerate tomorrow. Hypotension: Resolved. Most likely secondary to dehydration and unable to take her daily dose of midodrine. Blood pressure is already better after fluid bolus. Stop IV fluids and continue with home dose of midodrine 5 mg 3 times daily at home dose. Continue to monitor blood pressures. Keep mean arterial pressures over 65 with goal blood pressure less than 140/90 mmHg. ESRD on peritoneal dialysis: Will consult nephrology. PD as per nephrology. Will discuss with nephrology regarding potential excessive dialysis as per home schedule. Will adjust as per recommendations. CAD/post PCI: No active chest pain. Continue home medication of aspirin, Plavix, statin. Type 2 diabetes mellitus with gastroparesis: Reglan as above. Insulin sliding scale at moderate dose before meals and at bedtime. Home dose of glargine 50 units twice daily. Elevated lactate level: Most likely secondary to end-stage renal disease and ongoing diverticulitis. Continue fluid bolus and will repeat in 2 hours. As above chances of abdominal ischemia are low. If lactate continues to remain high will do CT abdomen with contrast. Iron panel, TSH, free T3, free T4, cortisol levels appreciated. CODE STATUS: Full code. Full liquid diet. Heparin 5000 every 12 for DVT prophylaxis. Pepcid for PUD prophylaxis. Transfer to floors. Attestations Medical Necessity Statement*: Patient was further hospitalization for management of nausea and vomiting secondary to gastroparesis while other causes like PD peritonitis and diverticulitis are ruled out. Poor oral intake leading to dehydration and hypotension. Time Spent in Patient Care: Greater than 35 minutes (>than 50% of time spent in counselling and/or direct pt care on unit) . Coding Level of Care Code Acute Wire Worker for Chg Fwd Diagnoses Vomiting R11.10 Diverticulitis K57.92 Acute hypotension I95.9 ESRD (end stage renal disease) N18.6 Peritoneal dialysis catheter in place Z99.2 Diabetes E11.9 Gastroparesis due to DM E11.43; K31.84 Chronic diastolic CHF (congestive heart failure) I50.32 CAD (coronary artery disease) I25.10 Associated angina: without angina Coronary Disease-Associated Artery/Lesion type: [place] artery [place] vs. transplanted heart: [place] heart Elevated lactic acid level R79.89 Elevated troponin R77.8
[2020-07-18] MEDS: ondansetron 2 mg/ML SDV 2 mL 4 MG IVP ×2 (09:10→16:00)
[2020-07-18 09:37] LABS: Procalcitonin 0.39 ng/mL (0-0.5)
--- NOTE | 2020-07-18 09:55 | PM.CONSULT ---
Providers/Reason For Consult Consulting Physican/Specialty*: christelle bullard md / telenephrology Reason for Consult*: ESRD care Attending Physician: Flash Luciano MD Primary Care Provider: Yovany Leonardo MD History of Present Illness History of Present Illness Rizwana Herzog is a 55 year old female ESRD on CCPD at home- follows w/ Dr. Timi Ann at [facility]- [phone]. Pt has h/o DM gastroparesis and Peritonitis. pt was admitted one week ago w/ hypotension / n/v/and dm gastroparesis. she went home on 07-13-20. pt presented again on 07-17-20 w/ hypotension, nusea, inability to hold down fluids. Pts SBP was in 60's in ER- given 2 l ivf and iv vanco and improved. last admission- PD WBC was only 47 pt c/o n/v/abd pain, weakness, glucose is labilr, and lightheaded yesterday Review of Systems General: Reports: 10 or more systems reviewed and unremarkable except in HPI and below Narrative: weak, anxious, depressed, n/v/abd pain. no sob or cp or [place] or fevers Meds/Allergies Home Medications and Allergies Home Medications Medication Instructions Recorded Confirmed Last Taken Type aspirin 81 mg PO DAILY@06/25/19 07/17/20 07/16/20 History multivitamin [Multiple Vitamins] 1 tab PO DAILY@06/30/19 07/17/20 07/16/20 History ferric citrate 210 mg iron tablet See Rx Instructions .ROUTE 09/06/19 07/17/20 07/16/20 History .COMPLEX tab coenzyme Q10 [CoQ-10] 100 mg PO DAILY@01/17/20 07/17/20 07/16/20 History omega 0-yce-fxg-fish oil [Fish Oil] 1 cap PO BID@01/17/20 07/17/20 07/16/20 History brimonidine 1 drp OPHTHALMIC (EYE) BID@01/31/20 07/17/20 07/16/20 History dorzolamide-timolol 1 drp OPHTHALMIC (EYE) BID@01/31/20 07/17/20 07/16/20 History pantoprazole 40 mg PO DAILY@08 02/16/20 07/17/20 07/17/20 History nitroglycerin 0.4 mg sublingual 0.4 mg SUBLINGUAL Q5M PRN #25 tab 03/26/20 07/17/20 04/18/20 Rx tablet [place] 1 drp OPHTHALMIC (EYE) DAILY@04/18/20 07/17/20 07/16/20 History sennosides-docusate sodium 2 tab PO BID PRN 04/18/20 07/17/20 04/28/20 History sevelamer carbonate 800 mg PO TID 04/29/20 07/17/20 07/16/20 History atorvastatin 40 mg PO DAILY@05/14/20 07/17/20 07/16/20 History cholecalciferol (vitamin D3) 25 mcg PO DAILY@05/14/20 07/17/20 07/16/20 History [Vitamin D3] paricalcitol 1 mcg capsule 1 mcg PO DAILY cap 05/22/20 07/17/20 07/16/20 History insulin glargine 100 unit/mL (3 50 unit SUBCUT BID@ #15 ml 06/17/20 07/17/20 07/16/20 Rx mL) subcutaneous pen clopidogrel 75 mg PO DAILY@07/10/20 07/17/20 07/16/20 History levothyroxine 224 mcg PO DAILY@0800 07/10/20 07/17/20 07/16/20 History midodrine 5 mg PO TID@07/10/20 07/17/20 07/16/20 History potassium chloride 10 meq PO DAILY@07/10/20 07/17/20 07/16/20 History Allergies Allergy/AdvReac Type Severity Reaction Status Date / Time metformin [From Glucophage] Allergy Severe Unknown Verified 07/10/20 14:25 venlafaxine [From Effexor] Allergy Severe ADR-Shakine Verified 07/10/20 14:25 ss Current Medications Current Medications Generic Name Dose Route Start Last Admin Trade Name Freq PRN Reason Stop Dose Admin Atorvastatin Calcium 40 mg 07/17/20 22:25 07/17/20 23:42 Atorvastatin 40 Mg Tablet PO 40 mg DAILY@20 JERSON Administration Famotidine 20 mg 07/17/20 22:45 07/17/20 23:44 Famotidine 20 Mg/2 Ml Inj IVP 20 mg Q12H JERSON Administration Vancomycin/PEG/NADA/Lysine/Water 1,500 mg in 300 mls @ 200 mls/hr 07/18/20 01:00 07/18/20 01:24 Vancocin IV 200 mls/hr Q72H JERSON Administration Insulin Aspart 0 unit 07/17/20 22:25 07/18/20 08:59 Insulin Aspart 100 Unit/1 Ml SUBCUT Not Given WM&BEDTIME JERSON Protocol Insulin Glargine 50 unit 07/17/20 22:25 07/18/20 01:20 Insulin Glargine 100 Units/1 Ml SUBCUT 50 unit BID JERSON Administration Midodrine 5 mg 07/17/20 22:25 07/17/20 23:41 Midodrine 5 Mg Tablet PO 5 mg TID@08,, JERSON Administration Ondansetron HCl 4 mg 07/17/20 22:25 07/18/20 09:10 Ondansetron 2 Mg/Ml Sdv 2 Ml IVP 4 mg Q6H PRN Administration NAUSEA AND VOMITING Sevelamer Carbonate 800 mg 07/17/20 22:25 07/17/20 23:41 Sevelamer 800 Mg Tablet PO 800 mg TID JERSON Administration PFSH Acute PFSH: Medical History (Updated 07/17/20 @ 22:40 by Neeta Jeronimo MD) Anxiety BPPV (benign paroxysmal positional vertigo) CAD (coronary artery disease) Carotid stenosis Chronic diastolic CHF (congestive heart failure) Chronic left sacroiliac joint pain Claustrophobia Depression End stage renal disease peritoneal dialysis ESBL (extended spectrum beta-lactamase) producing bacteria infection Gastroparesis GERD (gastroesophageal reflux disease) HTN (hypertension) Hyperlipidemia Hypothyroidism Insulin dependent diabetes mellitus DOROTEO on CPAP Partial nontraumatic amputation of left foot (~06/2019) Peripheral vascular disease Phantom pain Suicidal ideation TIA (transient ischemic attack) Vitamin D deficiency Surgical History (Updated 07/17/20 @ 22:39 by Neeta Jeronimo MD) H/O hysterectomy with oophorectomy History of appendectomy History of heart artery stent History of hysterectomy History of left heart catheterization History of right below knee amputation Peritoneal dialysis catheter in place S/P cholecystectomy S/P PICC central line placement Status post amputation of toe Family History Denies family history of CAD (coronary artery disease) Clotting disorder Dementia Bleeding disorder Social History Smoking and tobacco status: never smoked Alcohol intake: never Household members: spouse and family History of recent travel: No Vitals/I&O/Wt Last Vital Signs Temp 98.8 F 07/17/20 22:29 Pulse 64 07/18/20 06:00 Resp 15 07/18/20 06:00 BP 95/57 07/18/20 06:00 Pulse Ox 100 07/18/20 06:00 07/17/20 07/18/20 07/18/20 22:59 06:59 14:59 Intake Total 2867.45 / 3867.45 Output Total 50 / 50 Balance 2867.45 / 3867.45 -50 / 3817.45 Weight last 48 hrs Weight 88.451 kg Weight 83.915 kg Physical Exam Narrative: EXAM NARRATIVE: uncomfortable in bed, NARD vs noted heent- nc/at, eomi, anicteric neck no jvp lungs clear heart reg abd soft, tender, +BS ext RT BKA, no edema in legs neuro- a,a, o x 3 DM neuropathy poor left leg pulses Data Micro: Micro: Microbiology 07/17/20 14:15 Blood Culture - Pr eliminary Blood SPECIMEN [facility] 07/17/20 14:00 Blood Culture - Pr eliminary Blood SPECIMEN [facility] A&P Additional A&P Information 55 yr old female 1. 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 Ann from [facility] -pt presented dry as n/v and not eating and Q of diverticulitis -BP improved s/p ivf and abx -will send PD cell count -will do CAPD 4 exchanges a day w/ 2l of 1.25% gluc dialysate 2. DM gastroparesis- cT also w/ Q of diverticulitis in Left lower sigmoid colon- renal dose abx per medicin -check vanco trough- keep under 19- can give in PD -lactic acid of 5.4- likely improved w/ ivf- pts bicarb was 25. likely lost acid in PD and in vomitus 3. anemia- hgb at baseline high t sta- no iv iron -use TRISH 4.replace k and mag 5. hyponatremia from eSRD and vomiting 6. dm - check hgb a1c 7. elevated bnp of 5655- haed to interpet in ESRD 8, TSH of 17- d/c sevelamer can also bind levothyroxine 9. bone- mineral - metabolism of ESRD- pth 169- calcitriol phos binders- on d/c attempt lanthanum or auryxia- avoid calcium based binders w/ vascular disease and avoid sevelamer on levothyroxine 10. random cortisol 4.7 on 07/12/20 and 8.27 on 07/18/20 11. ua noted- appears contaminated - 25-40 squamous epi seen w/ RN who examined pt, as telehealth visit Consult Attestations Medical Necessity Statement: per hospitalist- esrd, hypotension, q infection Time Spent in Patient Care: Greater than 35 minutes Coding Level of Care Code Acute Stator Connector for Chg Sampson
[2020-07-18] MEDS: potassium chloride ER 10 mEq Tablet PO (10:03)
[2020-07-18] MEDS: midodrine 5 mg TABLET PO (10:03)
[2020-07-18] MEDS: famotidine 20 mg/2 mL INJ IVP ×2 (10:03→23:48)
[2020-07-18] MEDS: clopidogrel 75 mg Tablet PO (10:03)
[2020-07-18] MEDS: potassium chloride premix 100 ML 50 MEQ IV (10:54)
[2020-07-18] MEDS: metoclopramide 5 mg/mL SDV 2 mL IVP ×2 (10:54→20:42)
[2020-07-18 11:57] LABS: Glucose Point of Care 255 mg/dL (70-110)
--- NOTE | 2020-07-18 12:06 | PC.NURSE ---
[address] Luciano. Orders to DC IVF. Reported potassium level, orders for replacement. Reported n/v, will give zofran and hold off on PO meds for now. Change diet back to Full Liquid. [address] Gordon. Discussed orders for PD. 1020 Reported that patient continues to have n/v despite zofran administration. Orders for Reglan. [address] Gordon. Orders for PD and PD fluid to be collected. Will DC Revela and replace potassium and mag.
[2020-07-18] MEDS: Dianeal low Ca w/1.5% dex 2,000 mL Bag 2000 ML INTRAPERIT ×2 (13:07→20:40)
--- NOTE | 2020-07-18 13:15 | PC.NURSE ---
Attempted to call (Leroy) to notify him of patient transfer to the medical surgical floor. No answer and no message could be left.
[2020-07-18 14:40] LABS: Appearance, Peritoneal Fluid Clear (Clear); Color, Peritoneal Fluid Colorless (Pale Yellow)
[2020-07-18 14:42] LABS: Mononuclear #, Pertinoneal Fl 0.012 10^3/uL
[2020-07-18 14:43] LABS: RBC Pertioneal Fluid 0 10^3/uL; WBC Peritoneal Fluid 12 /uL
[2020-07-18 15:06] LABS: LDH Peritoneal Fluid < 10.0 U/L; Total Protein Peritoneal Fluid 0.3 g/dL
[2020-07-18 16:58] LABS: Bacteria Urine TRACE /hpf; Bilirubin Urine Neg (Negative); Blood Urine 3+ (Negative); Glucose Urine UA 4+ (Normal); Ketones Urine Negative (Negative); Leukocyte Esterase Urine 2+ (Negative); Nitrate Urine Negative (Negative); Protein Urine 3+ (Negative); RBC Urine 0-4 /hpf (0-2); Squamous Epithelial Cell Urine 15-25 /hpf (0-5); Urine Appearance Cloudy (CLEAR); Urine Color Yellow (Yellow); Urobilinogen Urine Norm (Negative); WBC Urine >100 /hpf (0-5); pH Urine 5 (5-7)
[2020-07-18 17:10] LABS: Add Urine Culture? No
[2020-07-18 17:17] LABS: Urine Random Sodium 41 mmol/L
[2020-07-18 17:47] LABS: Glucose Point of Care 237 mg/dL (70-110)
[2020-07-18] MEDS: morphine 4 mg/mL SDV 1 mL 2 MG IVP (18:18)
[2020-07-18] MEDS: atorvastatin 40 mg Tablet PO (20:42)
[2020-07-18 21:00] LABS: Glucose Point of Care 151 mg/dL (70-110)
[2020-07-19] VITALS (9 sets, daily range): BP systolic 98–131; BP diastolic 58–83; PULSE 60–76; RESP 14–19; TEMP 36.7–37.1; O2SAT 93–98
[2020-07-19] MEDS: Dianeal low Ca w/1.5% dex 2,000 mL Bag 2000 ML INTRAPERIT ×4 (01:20→19:36)
[2020-07-19] MEDS: metoclopramide 5 mg/mL SDV 2 mL IVP ×3 (04:25→18:20)
[2020-07-19 05:51] LABS: Basophils % 0.6 %; Eosinophils # 0.4 10^3/uL (0.0-0.8); Eosinophils % 6.7 %; Hematocrit 28.6 % (37.0-47.0); Hemoglobin 9.7 g/dL (11.5-15.3); Lymphocytes # 1.6 10^3/uL (0.8-4.8); Lymphocytes % 25.3 %; Mean Corpuscular HGB Conc 33.9 g/dL (30.0-36.0); Mean Corpuscular Hemoglobin 32.8 pg (28.0-34.0); Mean Corpuscular Volume 96.6 fL (81-99); Mean Platelet Volume 11.8 fL (7.4-10.4); Monocytes # 0.5 10^3/uL (0.2-0.9); Neutrophils # 3.84 10^3/uL (1.8-7.7); Neutrophils % 59.6 %; Nucleated Red Blood Cells % 0 %; Platelet Count 168 10^3/cmm (130-400); Red Blood Count 2.96 10^6/uL (4.1-5.3); Red Cell Distribution Width 12.7 % (12.1-15.1); White Blood Count 6.4 10^3/uL (4.0-10.0)
[2020-07-19 06:08] LABS: Alanine Aminotransferase 33 U/L (0-33); Albumin Level 2.5 g/dL (3.5-5.2); Alkaline Phosphatase 95 IU/L (35-105); Anion Gap 16.1 (5-19); Aspartate Amino Transferase 27 U/L (0-32); Blood Urea Nitrogen 22 mg/dL (6-20); Carbon Dioxide 24 mmol/L (22-29); Chloride 98 mmol/L (98-107); Globulin 2.8 g/dL (1.3-4.6); Glomerular Filtration Rate 6.4 mL/min (90-130); Glucose 164 mg/dL (65-115); Osmolality Calculated 287 mOsm/kg (285-295); Potassium 3.1 mmol/L (3.5-5.1); Sodium 135 mmol/L (136-145); Total Bilirubin 0.4 mg/dL (0.15-1.2); Total Protein 5.3 g/dL (6.6-8.7)
[2020-07-19 06:10] LABS: Magnesium 1.4 mg/dL (1.7-2.3); Phosphorus 4.3 mg/dL (2.5-4.5)
[2020-07-19 06:16] LABS: Vancomycin Random 37.4 ug/mL (20.0-40.0)
[2020-07-19 06:27] LABS: Glucose Point of Care 190 mg/dL (70-110)
--- NOTE | 2020-07-19 06:42 | NUR.SHIFT ---
Patient had slept through most of the night, patient had an uneventful night.
--- NOTE | 2020-07-19 08:21 | P.PN_ITS ---
Subjective Subjective: Interval history: feels weak, nauseous Medications: Reviewed: Yes Vitals/I&O/Wt Last Vital Signs Temp 98.0 F 07/19/20 04:51 Pulse 69 07/19/20 04:51 Resp 19 H 07/19/20 05:46 BP 99/58 07/19/20 04:51 Pulse Ox 93 07/19/20 04:51 07/18/20 07/19/20 07/19/20 22:59 06:59 14:59 Intake Total 100 / 2 338 / 2430 Output Total 300 / 300 0 / 300 Balance -200 / 1792 338 / 2130 Weight last 48 hrs Weight 87.906 kg Weight 87.906 kg Weight 88.451 kg Weight 88.451 kg Weight 83.915 kg Data : 07/19/20 05:35 07/19/20 05:35 Other Labs: LFTs normal, albumin 2.5, corrected Ca 10.2, phos 4.3, Mg 1.4 urine > 100 WBC Micro: Microbiology 07/18/20 18:13 Blood Culture - Preliminary Blood SPECIMEN COLLECTED 07/18/20 18:19 Blood Culture - Preliminary Blood SPECIMEN COLLECTED 07/18/20 12:15 Gram Stain - Final Peritoneal Fluid 07/17/20 14:15 Blood Culture - Preliminary Blood Gram Negative Rods 07/17/20 14:00 Blood Culture - Preliminary Blood NEGATIVE TO DATE A&P Additional A&P Information 1. ESRD on CAPD 2. GNR bacteremia, urine likely source, on imipenem 3. Hypokalemia, hypomagnesemia 4. Poor nutrition 5. Anemia, iron replete Recommendation has been made to change to hemodialyiss. Rizwana galvez. Will continue CAPD. Follow-up blood and urine cultures, replace KCl and Mg. Weekly SQ epogen Attestations Medical Necessity Statement*: per primary service Time Spent in Patient Care: 16 - 35 minutes Coding Level of Care Code Acute Pmp Certified Project Manager for Maris Braden
[2020-07-19] MEDS: midodrine 5 mg TABLET PO ×2 (08:42→12:55)
[2020-07-19] MEDS: aspirin 81 mg Chew Tablet PO (08:42)
[2020-07-19] MEDS: levothyroxine 112 mcg Tablet 224 MCG PO (08:42)
[2020-07-19] MEDS: clopidogrel 75 mg Tablet PO (08:42)
[2020-07-19] MEDS: potassium chloride ER 10 mEq Tablet PO (08:43)
[2020-07-19] MEDS: potassium chloride oral liq 20 mEq/15 mL UDC 40 MEQ PO ×2 (08:58→18:20)
[2020-07-19] MEDS: ondansetron 2 mg/ML SDV 2 mL 4 MG IVP (08:58)
[2020-07-19] MEDS: insulin glargine 100 units/1 mL 50 UNIT SUBCUT ×2 (08:59→18:25)
[2020-07-19] MEDS: magnesium sulfate premix 2 GM/50 ML PIGGYBACK IV (08:59)
[2020-07-19] MEDS: famotidine 20 mg/2 mL INJ IVP ×2 (11:26→23:59)
--- NOTE | 2020-07-19 12:12 | PC.CHAP ---
Pastoral Care Encounter/Spiritual Assessment Type of Contact [] Declined pattern maker visit [] Patient/Family/Request visit [] Outpatient visit [] Follow-up visit [] Physician referral [] Code/Alert [xx] Routine visit [] Staff referral [] Actively dying [] Patient sleeping [] Family support [] [] Out of room [] Palliative care [] [] Receiving care in room [] Pre-surgical visit [] Trauma [] Long length of stay [] ICU visit [] Other: Relational/Emotional Strength [xx] Patient feels connected with others/family/visitors/staff [] Distress [] Loneliness/isolation [] Abandonment Spirituality of Patient [xx] Person of [place] [] Attends Cheondoism of their [place] [xx] Believes in Prayer [] Reads Bible or Yarsanism materials [] There are Spiritual issues to be addressed Talent Acquisition Associate Interventions [xx] Prayer [xx] Active listening xx[] Non-anxious presence [] Spiritual/emotional support [] Crisis/trauma care [] Spiritual counseling [] Bereavement support [] Provided bereavement packet [] Provided Bible/devotional materials [] Provided toy/stuffed animal, coloring book to patient or family member [] Provided Communion [] Anointing/[place] [] Salvation [xx] Completed spiritual assessment [] Other: Impact on Illness or Injury [] Angry [] Fearful [] Anxious [] Often cries [] Exhaustion [] Unable to work [] Unable to attend spiritism [] Unable to walk/stand [] Unable to read [] Unable to drive [] Unable to eat/drink [] Unable to sleep [] Unable to be with family [] Patient intubated [] Other: Summary Patient expects to be transferred to [place] for 2nd opinion and is worried about weather conditions during transport as snow storm is predicted in [place] 48 hours. Time spent with patient 6 minutes
[2020-07-19 12:24] LABS: Glucose Point of Care 168 mg/dL (70-110)
--- NOTE | 2020-07-19 16:03 | P.PN_ITS ---
Subjective Subjective: Interval history: Documents overnight. Patient states she is mildly nauseous but has no form further vomiting after changing diet to full liquid diet. She complains of feeling weak. Denies any headache, abdominal pain. 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 Discussed with the patient that unfortunately her current zena tment requires IV antibiotics and nephrology service which we have at [facility] and if patient wants transfer it will be at her request. Later in the day tried contacting hospitalist at [facility] to request for transfer for further care as per patient's request but transfer request denied as patient does not have any critical need of higher care at present. The above has been communicated back to the patient. Medications: Reviewed: Yes Vitals/I&O/Wt Last Vital Signs Temp 98.8 F 07/19/20 11:44 Pulse 60 07/19/20 11:44 Resp 16 07/19/20 11:44 BP 117/71 07/19/20 11:44 Pulse Ox 96 07/19/20 11:44 07/19/20 07/19/20 07/19/20 06:59 14:59 22:59 Intake Total 338 / 2430 4750 / 4750 Output Total 0 / 300 4700 / 4700 Balance 338 / 2130 50 / 50 Weight last 48 hrs Weight 87.906 kg Weight 87.906 kg Weight 88.451 kg Weight 88.451 kg Physical Exam Narrative: EXAM NARRATIVE: General: No acute distress, AO x3, looking better today than yesterday HEENT: PERRLA, pupils bilaterally equal and reactive Chest: Normal vesicular breath sounds, no added sounds, equal good air entry bilaterally CVS: S1-S2 regular, no murmurs, no tachycardia, no gallops, no rubs Abdomen: Soft, nontender, no organomegaly, bowel sounds present but sluggisg, PD catherter in place, no discharge or granulation tissue around site of insertion. Neuro: No focal deficits, no facial deformity, AO x3, power 5/5 in all limbs Data : 07/19/20 05:35 07/19/20 05:35 Other Labs: Laboratory Results Pertinent Labs During Stay 07/17/20 07/17/20 07/17/20 12:30 12:30 12:30 Lactic Acid (Sepsis) Iron 123 TIBC 222 % Saturation 55.4 H Creatine Kinase 33 NT-Pro-B Natriuret Pep 5655 H Lipase 47 Procalcitonin 0.41 TSH Free T4 Free T3 Random Cortisol Random Vancomycin Serum Ketones Negative 07/17/20 07/17/20 07/17/20 12:30 12:30 18:20 Lactic Acid (Sepsis) 4.0 H Iron TIBC % Saturation Creatine Kinase NT-Pro-B Natriuret Pep Lipase Procalcitonin TSH 17.08 H Free T4 1.69 Free T3 2.4 Random Cortisol Random Vancomycin Serum Ketones 07/18/20 07/18/20 07/19/20 05:49 05:49 05:35 Lactic Acid (Sepsis) Iron TIBC % Saturation Creatine Kinase NT-Pro-B Natriuret Pep Lipase Procalcitonin 0.39 TSH Free T4 Free T3 Random Cortisol 8.27 Random Vancomycin 37.4 Serum Ketones Impressions Chest X-Ray 07/17/20 12:26 Impression: Atherosclerosis. Abdomen/Pelvis CT 07/17/20 15:05 IMPRESSION: 1. Suspected mild acute diverticulitis left lower quadrant sigmoid colon. No drainable abscess or fluid collection. Recommend correlation for infection. 2. No obstructing renal or ureteral calculi. No hydronephrosis in either kidney. Bilateral renal cortical atrophy. 3. Mild to moderate peritoneal ascites. 4. Peritoneal dialysis catheter. 5. Fat-containing umbilical hernia with small amount of fluid unchanged. 6. Prior hysterectomy and cholecystectomy. Attempted notification Karan Daniels DO at 07/17/2020 3:35 PM. Micro: Microbiology 07/18/20 12:15 Gram Stain - Final Peritoneal Fluid Body Fluid Culture - Preliminary 07/18/20 18:13 Blood Culture - Preliminary Blood SPECIMEN COLLECTED 07/18/20 18:19 Blood Culture - Preliminary Blood SPECIMEN COLLECTED 07/17/20 14:15 Blood Culture - Preliminary Blood Gram Negative Rods 07/17/20 14:00 Blood Culture - Preliminary Blood NEGATIVE TO DATE A&P Assessment and plan (1) Gram-negative bacteremia: Status: Acute (2) Vomiting: Status: Acute (3) Diverticulitis: Status: Acute (4) ESRD (end stage renal disease): Status: Chronic (5) Peritoneal dialysis catheter in place: Status: Chronic (6) Diabetes: Status: Chronic (7) Gastroparesis due to DM: Status: Chronic (8) CAD (coronary artery disease): Status: Chronic Qualifiers: Associated angina: without angina Coronary Disease-Associated Artery/Lesion type: [place] artery [place] vs. transplanted heart: [place] heart Qualified Code(s): I25.10 - Atherosclerotic heart disease of [place] coronary artery without angina pectoris (9) Acute hypotension: Status: Acute Additional A&P Information Nausea and vomiting 55-year-old female with past medical history of diabetic gastroparesis, ESRD on peritoneal dialysis, orthostatic hypotension on midodrine, CAD post PCI, diastolic heart failure presented to the ER with ep isodes of vomiting overnight and dizziness found to be hypotensive. Gram-negative bacteremia: Most likely secondary to UTI though cannot rule out from diverticulitis. We will request lab to do urine culture. Patient does have history of ESBL Klebsiella and a pansensitive E. coli UTI in the past. Continue with imipenem. Stop vancomycin as no gram-positive is growing for now. Follow-up cultures. Once blood cultures are negative most likely patient will require antibiotics for 4 weeks going forward. Vomiting: Could be multifactorial. Combination of advanced diabetic gastroparesis, possible UTI leading to gram-negative sepsis along with diverticulitis as seen on CT scan. PD peritonitis ruled out as per the pleural fluid analysis. Continue with Reglan 5 mg IV every 8 hours scheduled, Zofran as needed, Pepcid IV twice daily. Full liquid diet for now carb consistent renal dialysis diet. Will advance if patient is able to tolerate tomorrow. Hypotension: Resolved. Most likely secondary to dehydration and unable to take her daily dose of midodrine. Blood pressure is already better after fluid bolus. Continue with home dose of midodrine 5 mg 3 times daily at home dose. Continue to monitor blood pressures. Keep mean arterial pressures over 65 with goal blood pressure less than 140/90 mmHg. ESRD on peritoneal dialysis: Will consult nephrology. PD as per nephrology. Nephrology team suggested patient to get hemodialysis though she is not agreeable for the same until and she confirms that with her outpatient die trouble shooter. CAD/post PCI: No active chest pain. Continue home medication of aspirin, Plavix, statin. Type 2 diabetes mellitus with gastroparesis: Reglan as above. Insulin sliding scale at moderate dose before meals and at bedtime. Home dose of glargine 50 units twice daily. Iron panel, TSH, free T3, free T4, cortisol levels appreciated. CODE STATUS: Full code. Full liquid diet. Heparin 5000 every 12 for DVT prophylaxis. Pepcid for PUD prophylaxis. Attestations Medical Necessity Statement*: Patient requires further hospitalization for management of gram-negative bacteremia secondary to UTI, vomiting because of combination of diabetic gastroparesis with UTI Time Spent in Patient Care: Greater than 35 minutes (>than 50% of time spent in counselling and/or direct pt care on unit) . Coding Level of Care Code Acute Vocational Coordinator for Chg Fwd Diagnoses Gram-negative bacteremia R78.81 Vomiting R11.10 Diverticulitis K57.92 ESRD (end stage renal disease) N18.6 Peritoneal dialysis catheter in place Z99.2 Diabetes E11.9 Gastroparesis due to DM E11.43; K31.84 CAD (coronary artery disease) I25.10 Associated angina: without angina Coronary Disease-Associated Artery/Lesion type: [place] artery [place] vs. transplanted heart: [place] heart Acute hypotension I95.9
[2020-07-19 17:09] LABS: Glucose Point of Care 188 mg/dL (70-110)
[2020-07-19 21:56] LABS: Glucose Point of Care 137 mg/dL (70-110)
[2020-07-20] VITALS (11 sets, daily range): BP systolic 107–144; BP diastolic 66–85; PULSE 61–70; RESP 14–19; TEMP 36.4–36.7; O2SAT 96–100
[2020-07-20] MEDS: Dianeal low Ca w/1.5% dex 2,000 mL Bag 2000 ML INTRAPERIT ×4 (02:17→21:40)
[2020-07-20] MEDS: metoclopramide 5 mg/mL SDV 2 mL IVP ×3 (02:31→18:42)
[2020-07-20 05:36] LABS: Magnesium 1.7 mg/dL (1.7-2.3); Phosphorus 3.3 mg/dL (2.5-4.5)
[2020-07-20 06:51] LABS: Glucose Point of Care 73 mg/dL (70-110)
--- NOTE | 2020-07-20 08:52 | PC.SOCIAL ---
IM follow up explained to patient and provided copy. NO questions voiced and verbalized understanding.
[2020-07-20] MEDS: midodrine 5 mg TABLET PO ×2 (09:14→12:03)
[2020-07-20] MEDS: levothyroxine 112 mcg Tablet 224 MCG PO (09:14)
[2020-07-20] MEDS: potassium chloride ER 10 mEq Tablet PO (09:14)
[2020-07-20] MEDS: clopidogrel 75 mg Tablet PO (09:14)
[2020-07-20] MEDS: aspirin 81 mg Chew Tablet PO (09:14)
[2020-07-20] MEDS: insulin glargine 100 units/1 mL 50 UNIT SUBCUT ×2 (09:15→19:12)
[2020-07-20] MEDS: morphine 4 mg/mL SDV 1 mL 2 MG IVP (09:15)
[2020-07-20] MEDS: ondansetron 2 mg/ML SDV 2 mL 4 MG IVP ×2 (09:18→16:25)
--- NOTE | 2020-07-20 09:41 | P.PN_ITS ---
Subjective Subjective: Interval history: feels a little better. PD going well. PD fluid clear. I/O even. Prefers KCl tablets to liquid. Medications: Reviewed: Yes Vitals/I&O/Wt Last Vital Signs Temp 97.8 F 07/20/20 07:44 Pulse 65 07/20/20 07:44 Resp 18 07/20/20 09:15 BP 128/72 07/20/20 07:44 Pulse Ox 96 07/20/20 07:44 07/19/20 07/20/20 07/20/20 22:59 06:59 14:59 Intake Total 315 / 5065 100 / 5165 300 / 300 Output Total 150 / 4850 200 / 5050 100 / 100 Balance 165 / 215 -100 / 115 200 / 200 Weight last 48 hrs Weight 88.088 kg Weight 87.906 kg Weight 87.906 kg Weight 87.906 kg Weight 87.906 kg Weight 88.451 kg Physical Exam Const: COMMON NORMALS: no acute distress GENERAL APPEARANCE: cooperative Extremity: GENERAL: No edema Data : 07/19/20 05:35 07/20/20 04:45 Other Labs: Ca 9.2, phos 3.3, Mg 1.7 Micro: Microbiology 07/18/20 18:19 Blood Culture - Preliminary Blood NEGATIVE TO DATE 07/18/20 18:13 Blood Culture - Preliminary Blood NEGATIVE TO DATE 07/18/20 12:15 Gram Stain - Final Peritoneal Fluid Body Fluid Culture - Preliminary A&P Additional A&P Information 1. ESRD on CAPD 2. GNR bacteremia, urine likely source, on imipenem, also possible diverticulitis. No evidence of peritonitis 3. Hypokalemia, hypomagnesemia, improving 4. Poor nutrition 5. Anemia, iron replete Recommendation has been made to change to hemodialyiss. Rizwana declines. Will continue CAPD. Follow-up blood and urine cultures, replace KCl. Weekly SQ epogen. add gent cream to PD catheter exit site. Continue 1.5%, 2L, QID Attestations Medical Necessity Statement*: per primary service Coding Level of Care Code Acute Bessemer Converter Operator for Maris Braden
[2020-07-20 10:00] LABS: Anion Gap 15.3 (5-19); Blood Urea Nitrogen 19 mg/dL (6-20); Calcium 9.2 mg/dL (8.5-10.5); Carbon Dioxide 23 mmol/L (22-29); Chloride 100 mmol/L (98-107); Glomerular Filtration Rate 7.3 mL/min (90-130); Glucose 73 mg/dL (65-115); Osmolality Calculated 281 mOsm/kg (285-295); Potassium 3.3 mmol/L (3.5-5.1); Sodium 135 mmol/L (136-145)
[2020-07-20 10:57] LABS: Glucose Point of Care 151 mg/dL (70-110)
[2020-07-20] MEDS: famotidine 20 mg/2 mL INJ IVP (12:03)
--- NOTE | 2020-07-20 13:23 | PM.PN ---
Subjective Subjective: Interval history: No events overnight. Patient states she is clinically better today. She is tolerating the liquid diet well. Denies any further vomiting. States nausea is better as well. Has remained hemodynamically stable overnight without any fevers. Medications: Reviewed: Yes Vitals/I&O/Wt Last Vital Signs Temp 98.0 F 07/20/20 11:25 Pulse 64 07/20/20 11:25 Resp 16 07/20/20 11:25 BP 110/68 07/20/20 11:25 Pulse Ox 100 07/20/20 11:25 07/19/20 07/20/20 07/20/20 22:59 06:59 14:59 Intake Total 315 / 5065 100 / 5165 2425 / 2425 Output Total 150 / 4850 200 / 5050 2100 / 2100 Balance 165 / 215 -100 / 115 325 / 325 Weight last 48 hrs Weight 88.088 kg Weight 87.906 kg Weight 87.906 kg Weight 87.906 kg Weight 87.906 kg Weight 88.451 kg Physical Exam Narrative: EXAM NARRATIVE: General: No acute distress, AO x3, looking better today than yesterday HEENT: PERRLA, pupils bilaterally equal and reactive Chest: Normal vesicular breath sounds, no added sounds, equal good air entry bilaterally CVS: S1-S2 regular, no murmurs, no tachycardia, no gallops, no rubs Abdomen: Soft, nontender, no organomegaly, bowel sounds present but sluggisg, PD catherter in place, no discharge or granulation tissue around site of insertion. Neuro: No focal deficits, no facial deformity, AO x3, power 5/5 in all limbs Data : 07/19/20 05:35 07/20/20 04:45 Other Labs: Pertinent Labs During Stay 07/17/20 07/17/20 07/17/20 12:30 12:30 12:30 Lactic Acid (Sepsis) Iron 123 TIBC 222 % Saturation 55.4 H Creatine Kinase 33 NT-Pro-B Natriuret Pep 5655 H Lipase 47 Procalcitonin 0.41 TSH Free T4 Free T3 Random Cortisol Random Vancomycin Serum Ketones Negative 07/17/20 07/17/20 07/17/20 12:30 12:30 18:20 Lactic Acid (Sepsis) 4.0 H Iron TIBC % Saturation Creatine Kinase NT-Pro-B Natriuret Pep Lipase Procalcitonin TSH 17.08 H Free T4 1.69 Free T3 2.4 Random Cortisol Random Vancomycin Serum Ketones 07/18/20 07/18/20 07/19/20 05:49 05:49 05:35 Lactic Acid (Sepsis) Iron TIBC % Saturation Creatine Kinase NT-Pro-B Natriuret Pep Lipase Procalcitonin 0.39 TSH Free T4 Free T3 Random Cortisol 8.27 Random Vancomycin 37.4 Serum Ketones Micro: Microbiology 07/18/20 12:15 Gram Stain - Final Peritoneal Fluid Body Fluid Culture - Preliminary 07/18/20 18:19 Blood Culture - Preliminary Blood NEGATIVE TO DATE 07/18/20 18:13 Blood Culture - Preliminary Blood NEGATIVE TO DATE Microbiology 07/18/20 12:15 Peritoneal Fluid Gram Stain - Final 07/18/20 12:15 Peritoneal Fluid Body Fluid Culture - Preliminary 07/18/20 18:19 Blood Blood Culture - Preliminary NEGATIVE TO DATE 07/18/20 18:13 Blood Blood Culture - Preliminary NEGATIVE TO DATE 07/17/20 14:15 Blood Blood Culture - Preliminary Gram Negative Rods 07/17/20 14:00 Blood Blood Culture - Preliminary NEGATIVE TO DATE A&P Assessment and plan (1) Gram-negative bacteremia: Status: Acute (2) Vomiting: Status: Acute (3) Diverticulitis: Status: Acute (4) ESRD (end stage renal disease): Status: Chronic (5) Peritoneal dialysis catheter in place: Status: Chronic (6) Diabetes: Status: Chronic (7) Gastroparesis due to DM: Status: Chronic (8) CAD (coronary artery disease): Status: Chronic Qualifiers: Coronary Disease-Associated Artery/Lesion type: [place] artery [place] vs. transplanted heart: [place] heart Associated angina: without angina Qualified Code(s): I25.10 - Atherosclerotic heart disease of [place] coronary artery without angina pectoris (9) Acute hypotension: Status: Acute Additional A&P Information Nausea and vomiting 55-year-old female with past medical history of diabetic gastroparesis, ESRD on peritoneal dialysis, orthostatic hypotension on midodrine, CAD post PCI, diastolic heart failure presented to the ER with episodes of vomiting overnight and dizziness found to be hypotensive. Gram-negative bacteremia: Most likely secondary to UTI though cannot rule out from diverticulitis. Urine culture pending. Gram-negative ricardo speciation and sensitivities still pending. Patient clinically improving. Check enteric GI panel to rule out Campylobacter. Patient does have history of ESBL Klebsiella and a pansensitive E. coli UTI in the past. Continue with imipenem. Follow-up cultures. Once blood cultures are negative most likely patient will require antibiotics for 4 weeks going forward. Vomiting: Could be multifactorial. Combination of advanced diabetic gastroparesis, possible UTI leading to gram-negative sepsis along with diverticulitis as seen on CT scan. PD peritonitis ruled out as per the pleural fluid analysis. Continue with Reglan 5 mg IV every 8 hours scheduled, Zofran as needed, Pepcid IV twice daily. Advance to GI soft persistent diet as patient is tolerating full liquid diet. We will continue to monitor. Hypotension: Resolved. Most likely secondary to dehydration and unable to take her daily dose of midodrine. Blood pressure is already better after fluid bolus. Continue with home dose of midodrine 5 mg 3 times daily at home dose. Continue to monitor blood pressures. Keep mean arterial pressures over 65 with goal blood pressure less than 140/90 mmHg. ESRD on peritoneal dialysis: Will consult nephrology. PD as per nephrology. 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 CAD/post PCI: No active chest pain. Continue home medication of aspirin, Plavix, statin. Type 2 diabetes mellitus with gastroparesis: Reglan as above. Insulin sliding scale at moderate dose before meals and at bedtime. Home dose of glargine 50 units twice daily. Iron panel, TSH, free T3, free T4, cortisol levels appreciated. CODE STATUS: Full code. Full liquid diet. Heparin 5000 every 12 for DVT prophylaxis. Pepcid for PUD prophylaxis. Attestations Medical Necessity Statement*: Patient requires further hospitalization for management of gram-negative bacteremia while culture speciation and sensitivity awaited. Time Spent in Patient Care: Greater than 35 minutes (>than 50% of time spent in counselling and/or direct pt care on unit). Coding Level of Care Code Acute Transportation Operations Manager for g Fwd Diagnoses Gram-negative bacteremia R78.81 Vomiting R11.10 Diverticulitis K57.92 ESRD (end stage renal disease) N18.6 Peritoneal dialysis catheter in place Z99.2 Diabetes E11.9 Gastroparesis due to DM E11.43; K31.84 CAD (coronary artery disease) I25.10 Coronary Disease-Associated Artery/Lesion type: [place] artery [place] vs. transplanted heart: [place] heart Associated angina: without angina Acute hypotension I95.9
--- NOTE | 2020-07-20 16:26 | PC.NURSE ---
PATIENT COMPLAINED OF SOME NAUSEA. IV ONDANSETRON GIVEN PER PRN ORDER.
[2020-07-20 17:03] LABS: Glucose Point of Care 100 mg/dL (70-110)
[2020-07-20] MEDS: potassium chloride ER 20 mEq Tablet 40 MEQ PO (17:25)
--- NOTE | 2020-07-20 18:31 | PC.NURSE ---
SHIFT SUMMARY PATIENT A & O X4. PATIENT HAS BEEN CALM AND COOPERATIVE THROUGHOUT SHIFT. HAS HAD TWO INCIDENTS OF NAUSEA, VOMITING ONCE. NAUSEA CONTROLLED WITH ONDANSETRON. PD GOES WELL, EXCEPT PATIENT ASKED THAT THE DIALYSIS FLUID BE SLIGHTLY WARMER. PATIENT WAS ABLE TO GET UP TO CHAIR FOR HER AFTERNOON PD. HAS HAD SOME PAIN IN HER LOWER BACK, WHICH SHE STATES IS CHRONIC; HAS BEEN CONTROLLED WITH PAIN MEDICATIONS.
[2020-07-20 20:46] LABS: Glucose Point of Care 161 mg/dL (70-110)
[2020-07-20] MEDS: atorvastatin 40 mg Tablet PO (21:41)
[2020-07-21] VITALS: BP 115/70; PULSE 60; RESP 16; TEMP 36.9; O2SAT 98
[2020-07-21] MEDS: famotidine 20 mg/2 mL INJ IVP ×2 (00:57→11:31)
[2020-07-21] MEDS: Dianeal low Ca w/1.5% dex 2,000 mL Bag 2000 ML INTRAPERIT ×3 (03:37→14:39)
[2020-07-21 04:00] VITALS: BP 102/66; PULSE 79; RESP 17; TEMP 36.6; O2SAT 98
[2020-07-21 06:27] LABS: Basophils # 0.1 10^3/uL (0.0-0.1); Basophils % 0.9 %; Eosinophils # 0.9 10^3/uL (0.0-0.8); Eosinophils % 12.7 %; Hematocrit 31.3 % (37.0-47.0); Hemoglobin 10.3 g/dL (11.5-15.3); Lymphocytes # 1.9 10^3/uL (0.8-4.8); Lymphocytes % 27.2 %; Mean Corpuscular HGB Conc 32.9 g/dL (30.0-36.0); Mean Corpuscular Hemoglobin 31.9 pg (28.0-34.0); Mean Corpuscular Volume 96.9 fL (81-99); Mean Platelet Volume 11.6 fL (7.4-10.4); Monocytes # 0.5 10^3/uL (0.2-0.9); Monocytes % 6.5 %; Neutrophils # 3.61 10^3/uL (1.8-7.7); Neutrophils % 52.3 %; Nucleated Red Blood Cells % 0 %; Platelet Count 172 10^3/cmm (130-400); Red Blood Count 3.23 10^6/uL (4.1-5.3); Red Cell Distribution Width 12.7 % (12.1-15.1); White Blood Count 6.9 10^3/uL (4.0-10.0)
[2020-07-21 06:40] LABS: Glucose Point of Care 84 mg/dL (70-110)
[2020-07-21 06:45] LABS: Magnesium 1.5 mg/dL (1.7-2.3); Phosphorus 3.5 mg/dL (2.5-4.5)
--- NOTE | 2020-07-21 07:07 | NUR.SHIFT ---
Patient was able to sleep through most of the night.
--- NOTE | 2020-07-21 07:39 | PM.PN ---
Subjective Subjective: Interval history: weak, lethargic, nausea. tolerating liquids. swollen. less lightheaded Medications: Reviewed: Yes Medication Review Details: Current Medications Aspirin (Aspirin 81 Mg Chew Tablet) 81 mg PO DAILY@08 [facility] Last Admin: 07/20/20 09:14 Dose: 81 mg Documented by: Atorvastatin Calcium (Atorvastatin 40 Mg Tablet) 40 mg PO DAILY@20 [facility] Last Admin: 07/20/20 21:41 Dose: 40 mg Documented by: Clopidogrel Bisulfate (Clopidogrel 75 Mg Tablet) 75 mg PO DAILY@08 [facility] Last Admin: 07/20/20 09:14 Dose: 75 mg Documented by: Dextrose (Dextrose 50% Syringe 50 Ml) 25 ml IVP ONCE PRN; Protocol PRN Reason: hypoglycemia protocol Dextrose (Dextrose 50% Syringe 50 Ml) 50 ml IVP PRN PRN; Protocol PRN Reason: hypoglycemia protocol Famotidine (Famotidine 20 Mg/2 Ml Inj) 20 mg IVP Q12H [facility] Last Admin: 07/21/20 00:57 Dose: 20 mg Documented by: Gentamicin Sulfate (Gentamicin 0.1% Cream 15 Gm) 1 applic TOPICAL DAILY [facility] Last Admin: 07/20/20 12:04 Dose: 1 applic Documented by: Glucagon (Glucagon 1 Mg/Ml Inj 1 Ml) 1 mg IM ONCE PRN; Protocol PRN Reason: Adult Acute Hypoglycemia Prot. Dextrose (D5w) 500 mls @ 100 mls/hr IV ONCE PRN; Protocol PRN Reason: Adult Acute Hypoglycemia Prot Imipenem/Cilastatin Sodium 250 (mg/ Sodium Chloride) 100 mls @ 200 mls/hr IV Q12H [facility]; Protocol Last Infusion: 07/21/20 03:37 Dose: Infused Documented by: Insulin Aspart (Insulin Aspart 100 Unit/1 Ml) 0 unit SUBCUT WM&BEDTIME [facility]; Protocol Last Admin: 07/21/20 07:29 Dose: Not Given Documented by: Insulin Glargine (Insulin Glargine 100 Units/1 Ml) 50 unit SUBCUT BID [facility] Last Admin: 07/20/20 19:12 Dose: 50 unit Documented by: Levothyroxine Sodium (Levothyroxine 112 Mcg Tablet) 224 mcg PO DAILY@0800 [facility] Last Admin: 07/20/20 09:14 Dose: 224 mcg Documented by: Metoclopramide HCl (Metoclopramide 5 Mg/Ml Sdv 2 Ml) 5 mg IVP Q8H [facility] Last Admin: 07/21/20 04:18 Dose: Not Given Documented by: Midodrine (Midodrine 5 Mg Tablet) 5 mg PO TID@08,12,20 [facility] Last Admin: 07/20/20 21:37 Dose: Not Given Documented by: Morphine Sulfate (Morphine 4 Mg/Ml Sdv 1 Ml) 2 mg IVP Q4H PRN PRN Reason: SEVERE PAIN Last Admin: 07/20/20 09:15 Dose: 2 mg Documented by: Non-Formulary Medication (Paricalcitol [Zemplar]) 1 mcg PO DAILY [facility] Ondansetron HCl (Ondansetron 2 Mg/Ml Sdv 2 Ml) 4 mg IVP Q6H PRN PRN Reason: NAUSEA AND VOMITING Last Admin: 07/20/20 16:25 Dose: 4 mg Documented by: Peritoneal Dialysis Solution (Dianeal Low Ca W/1.5% Dex 2,000 Ml Bag) 2,000 ml INTRAPERIT Q6H [facility] Last Admin: 07/21/20 03:37 Dose: 2,000 ml Documented by: Potassium Chloride (Potassium Chloride Er 20 Meq Tablet) 40 meq PO BID [facility] Stop: 07/21/20 19:00 Last Admin: 07/20/20 17:25 Dose: 40 meq Documented by: Vitals/I&O/Wt Last Vital Signs Temp 98 F 07/21/20 04:00 Pulse 79 07/21/20 04:00 Resp 17 07/21/20 04:00 BP 102/66 07/21/20 04:00 Pulse Ox 98 07/21/20 04:00 07/20/20 07/21/20 07/21/20 22:59 06:59 14:59 Intake Total 2490 / 4915 100 / 5015 Output Total 2000 / 4100 300 / 4400 Balance 490 / 815 -200 / 615 Weight last 48 hrs Weight 88.314 kg Weight 88.088 kg Weight 88.088 kg Weight 87.906 kg Weight 87.906 kg Physical Exam Narrative: EXAM NARRATIVE: comfortable in bed, NARD vs noted - BP low but acceptable heent- nc/at, eomi, anicteric neck no jvp lungs clear heart reg abd soft, non-tender, +BS, + PD catheter ext RT BKA, no edema in legs neuro- a,a, o x 3 DM neuropathy poor left leg pulses Data : 07/21/20 06:20 07/20/20 04:45 Micro: Microbiology 07/18/20 12:15 Gram Stain - Final Peritoneal Fluid Body Fluid Culture - Preliminary A&P Additional A&P Information 1. ESRD on CAPD - cont 4 exchanges a day of 1.5% gluc, 2 l fills 2. GNR bacteremia, urine likely source, on imipenem, also possible diverticulitis. No evidence of peritonitis 3. Hypokalemia, hypomagnesemia - replete 4. Poor nutrition 5. DM control per medicine -advance diet per medicine- nausea on rgelan 6. Anemia, iron replete -give epo- currently weekly dose 7. h/o CAD 8. TSH 17- adjust levothyroxine dose per medicine 9. replace vitd and calcitriol 10. pt was advised to transition to hD- she is currently refusing- will cont CAPD seen w/ RN- telehealth visit Attestations Medical Necessity Statement*: esrd, bacteremia,uti Time Spent in Patient Care: 16 - 35 minutes Coding Level of Care Code Acute Electric Knife Operator for Maris Braden
[2020-07-21 07:42] VITALS: BP 119/76; PULSE 66; RESP 18; TEMP 36.8; O2SAT 95
[2020-07-21] MEDS: midodrine 5 mg TABLET PO ×2 (08:23→11:30)
[2020-07-21] MEDS: levothyroxine 112 mcg Tablet 224 MCG PO (08:23)
[2020-07-21] MEDS: clopidogrel 75 mg Tablet PO (08:23)
[2020-07-21] MEDS: aspirin 81 mg Chew Tablet PO (08:23)
[2020-07-21] MEDS: potassium chloride ER 20 mEq Tablet 40 MEQ PO (08:24)
[2020-07-21 08:29] VITALS: PULSE 66; O2SAT 98
[2020-07-21] MEDS: ergocalciferol (vitamin D2) 50,000 Unit Capsule 50000 UNIT PO (08:34)
[2020-07-21] MEDS: insulin glargine 100 units/1 mL 50 UNIT SUBCUT (08:35)
[2020-07-21] MEDS: lanolin oint 7 gm 1 APPLIC TOPICAL (09:51)
[2020-07-21 11:00] LABS: Glucose Point of Care 155 mg/dL (70-110)
[2020-07-21] MEDS: metoclopramide 5 mg/mL SDV 2 mL IVP (11:31)
--- NOTE | 2020-07-21 13:31 | PM.DCS ---
Discharge Providers Date of Admission: 07/17/20 17:01 Date of Discharge: July 21, 2020 Attending Provider at Admission: Neeta Jeronimo MD Attending Provider at Discharge: Flash Luciano MD Primary Care Provider: Yovany Leonardo MD Diagnoses at Discharge Discharge Diagnosis (1) Gram-negative bacteremia: Status: Acute (2) Vomiting: Status: Acute (3) Diverticulitis: Status: Acute (4) ESRD (end stage renal disease): Status: Chronic (5) Peritoneal dialysis catheter in place: Status: Chronic (6) Diabetes: Status: Chronic Permanent problem details: Insulin-dependent (7) Gastroparesis due to DM: Status: Chronic (8) CAD (coronary artery disease): Status: Chronic Qualifiers: Coronary Disease-Associated Artery/Lesion type: [place] artery [place] vs. transplanted heart: [place] heart Associated angina: without angina Qualified Code(s): I25.10 - Atherosclerotic heart disease of [place] coronary artery without angina pectoris (9) Acute hypotension: Status: Acute Reason for Visit Reason for Visit: N/V/Chest [facility] Course Hospital Course Rizwana Herzog is a 55 year old female with PMH of end-stage renal disease on peritoneal dialysis, hypertension, insulin-dependent diabetes mellitus type 2 status post right below-knee amputation and known history of coronary artery disease status post PCI with most recently in Apr 2020, anemia of end-stage renal disease, hypothyroidism, depression/anxiety, gastroesophageal reflux disease, peripheral vascular disease status post left foot toe amputation, diastolic congestive heart failure and hyperlipidemia.Patient was recently discharged from the hospital on July 13 when she was admitted for 4 days because of dizziness and abdominal pain. Prior to that she was admitted at [facility] in early June for PD peritonitis. She presents to the ER again today complaining of nausea and vomiting with unable to keep anything down since last night. Patient states since her discharge only thing she can eat is Jell-O and few liquids. She has been complaining of occasional abdominal pain but denies any diarrhea. Today morning she was not even able to keep her medications down so she presented to the ER. She is complaining of dizziness today though she was not having the dizziness to last night. Patient denies any fever, subjective feeling of fever, headache, diarrhea, flulike symptoms, cough. She does her peritoneal dialysis overnight and states her dialysis sessions have remained same. She is not really sure what is the usual intake and output at present. She is also not sure of the fluid is clear or not. Vomitus contained food particles, nonbilious not foul-smelling not bloodstained. Patient states he makes occasional urine but has not been able to make any urine for last 4 to 5 days. Denies any dysuria, urinary hesitancy or pain while passing urine. Blood work in the ER showed a hemoglobin of 13.5, white count of 8.4, platelet count of 291, ABG showing a PO2 of 78, PCO2 of 35, sodium of 131, potassium of 3.3, BUN of 21, creatinine of 6.7, glucose of 272, lactic of 5.4, calcium of 10.1, magnesium of 1.4, AST/ALT of 47/41 with alkaline phosphatase of 132, baseline troponin of 174 coming down to 158 with a troponin delta of -16 in 2 hours, urinalysis negative for nitrite, 1+ leuk esterase with more than [address] abdomen pelvis was done which showed mild acute diverticulitis of left lower sigmoid colon without drainable abscess or fluid collection, nonobstructive renal calculi with cholecystectomy clips, mild fatty atrophy of pancreas and splenic artery calcifications. In the ER patient was found to have a systolic blood pressure of 60 after which she was given 2 L fluid bolus and oral midodrine dose. Her blood pressure improved to 117 systolic on my examination. Patient is lying comfortably in bed with heart rate of 76 bpm and saturation 95% on room air. At first she was admitted to the ICU because of low blood pressures which were treated with IV fluids and restarting home midodrine. It is believed her symptoms are most likely because of a combination of diabetic gastroparesis, UTI less effective peritoneal dialysis done at home. Nephrology team recommended patient to get hemodialysis rather than peritoneal dialysis for better ultrafiltration but she refused stating that she would want to confirm that from her primary collar pointer first. Gets hemodialysis rather than peritoneal. She was started on full liquid diet and eventually titrated up to GI soft which is been tolerated well. Blood cultures from admission came back positive for Acinetobacter. Once patient was able to tolerate oral diet well she is being discharged in hemodynamically stable condition on oral levofloxacin as per the sensitivities for next 4 weeks. She is to take 500 mg once after that to 50 mg every other day as per the recommendation for patient on peritoneal dialysis. She is to see her primary care provider within next 1 week. Physical Exam Narrative: EXAM NARRATIVE: General: No acute distress, AO x3, looking better today than yesterday HEENT: PERRLA, pupils bilaterally equal and reactive Chest: Normal vesicular breath sounds, no added sounds, equal good air entry bilaterally CVS: S1-S2 regular, no murmurs, no tachycardia, no gallops, no rubs Abdomen: Soft, nontender, no organomegaly, bowel sounds present but sluggisg, PD catherter in place, no discharge or granulation tissue around site of insertion. Neuro: No focal deficits, no facial deformity, AO x3, power 5/5 in all limbs Discharge Data Data Completed and Pending: Completed Studies During Hospitalization Category Date Time Status CT kidney stone [id number] Stat Cat Scan 07/17/20 15:05 Completed XR chest 1V sandra ble [id number] Stat Exams 07/17/20 12:26 Completed Pending at discharge Category Date Time Status Blood Culture Sta t Lab 07/17/20 14:15 Results Blood Culture Sta t Lab 07/18/20 18:13 Results Comprehensive Met abolic Panel AM LA BS Lab 07/22/20 04:00 Ordered Comprehensive Met abolic Panel AM LA BS Lab 07/23/20 04:00 Ordered Comprehensive Met abolic Panel AM LA BS Lab 07/24/20 04:00 Ordered Enteric Bacterial Panel by PCR Rout ine Lab 07/20/20 12:15 Uncollected MRSA by PCR Shyami ne Lab 07/18/20 16:10 Received Magnesium AM LABS Lab 07/22/20 04:00 Ordered Magnesium AM LABS Lab 07/23/20 04:00 Ordered Magnesium AM LABS Lab 07/24/20 04:00 Ordered Phosphorus AM LAB S Lab 07/22/20 04:00 Ordered Phosphorus AM LAB S Lab 07/23/20 04:00 Ordered Phosphorus AM LAB S Lab 07/24/20 04:00 Ordered Urine Culture Sta t Lab 07/19/20 19:10 Results Labs from last 24 hours 07/21/20 07/21/20 07/21/20 10:47 06:30 06:20 WBC RBC Hgb Hct MCV MCH MCHC RDW Plt Count MPV Neut % (Auto) Lymph % (Auto) [place] % (Auto) Eos % (Auto) Baso % (Auto) Neut # (Auto) Lymph # (Auto) [place] # (Auto) Eos # (Auto) Baso # (Auto) Nucleated RBC % (a uto) Nucleated RBCs # POC Glucose 155 H 84 Phosphorus 3.5 Magnesium 1.5 L 07/21/20 07/20/20 07/20/20 06:20 20:41 16:59 WBC 6.9 RBC 3.23 L Hgb 10.3 L Hct 31.3 L MCV 96.9 MCH 31.9 MCHC 32.9 RDW 12.7 Plt Count 172 MPV 11.6 H Neut % (Auto) 52.3 Lymph % (Auto) 27.2 [place] % (Auto) 6.5 Eos % (Auto) 12.7 Baso % (Auto) 0.9 Neut # (Auto) 3.61 Lymph # (Auto) 1.9 [place] # (Auto) 0.5 Eos # (Auto) 0.9 H Baso # (Auto) 0.1 Nucleated RBC % (a uto) 0 Nucleated RBCs # 0.0 POC Glucose 161 H 100 Phosphorus Magnesium Microbiology 07/18/20 12:15 Peritoneal Fluid Gram Stain - Final 07/18/20 12:15 Peritoneal Fluid Body Fluid Culture - Final 07/19/20 19:10 Urine,Clean Catch Urine Culture - Preliminary Yeast 07/17/20 14:15 Blood Blood Culture - Preliminary Acinetobacter lwoffii. 07/18/20 18:19 Blood Blood Culture - Preliminary NEGATIVE TO DATE 07/18/20 18:13 Blood Blood Culture - Preliminary NEGATIVE TO DATE 07/17/20 14:00 Blood Blood Culture - Preliminary NEGATIVE TO DATE Laboratory Results Pertinent Labs During Stay 07/17/20 07/17/20 07/17/20 12:30 12:30 12:30 Lactic Acid (Sepsi s) Iron 123 TIBC 222 % Saturation 55.4 H Creatine Kinase 33 NT-Pro-B Natriuret Pep 5655 H Lipase 47 Procalcitonin 0.41 TSH Free T4 Free T3 Random Cortisol Random Vancomycin Serum Ketones Negative 07/17/20 07/17/20 07/17/20 12:30 12:30 18:20 Lactic Acid (Sepsi s) 4.0 H Iron TIBC % Saturation Creatine Kinase NT-Pro-B Natriuret Pep Lipase Procalcitonin TSH 17.08 H Free T4 1.69 Free T3 2.4 Random Cortisol Random Vancomycin Serum Ketones 07/18/20 07/18/2021 05:49 05:49 05:35 Lactic Acid (Sepsi s) Iron TIBC % Saturation Creatine Kinase NT-Pro-B Natriuret Pep Lipase Procalcitonin 0.39 TSH Free T4 Free T3 Random Cortisol 8.27 Random Vancomycin 37.4 Serum Ketones Impressions Chest X-Ray 07/17/20 12:26 Impression: Atherosclerosis. Abdomen/Pelvis CT 07/17/20 15:05 IMPRESSION: 1. Suspected mild acute diverticulitis left lower quadrant sigmoid colon. No drainable abscess or fluid collection. Recommend correlation for infection. 2. No obstructing renal or ureteral calculi. No hydronephrosis in either kidney. Bilateral renal cortical atrophy. 3. Mild to moderate peritoneal ascites. 4. Peritoneal dialysis catheter. 5. Fat-containing umbilical hernia with small amount of fluid unchanged. 6. Prior hysterectomy and cholecystectomy. Attempted notification Karan Daniels DO at 07/17/2020 3:35 PM. Vitals: Last Vital Signs Temp 98.3 F 07/21/20 07:42 Pulse 66 07/21/20 08:29 Resp 18 07/21/20 07:42 BP 119/76 07/21/20 07:42 Pulse Ox 98 07/21/20 08:29 Discharge Plan Discharge Patient Disposition: Home Condition: Stable Prescriptions: New levofloxacin 250 mg tablet 250 mg PO Q48H 28 Days Qty: 14 RF: 0 Diflucan 100 mg tablet 100 mg PO DAILY Qty: 7 RF: 0 Reglan 5 mg tablet 5 mg PO DAILY Qty: 30 RF: 0 Continued nitroglycerin 0.4 mg tablet, sublingual 0.4 mg SUBLINGUAL Q5M PRN (Reason: Chest Pain) Qty: 25 RF: 6 Lantus Solostar U-100 Insulin 100 unit/mL (3 mL) insulin pen 50 unit SUBCUT BID@08,20 Qty: 15 RF: 12 aspirin 81 mg Tablet,Chewable 81 mg PO DAILY@08 RF: 0 Auryxia 210 mg iron tablet See Rx Instructions .ROUTE .COMPLEX RF: 0 pantoprazole 40 mg tablet,delayed release (DR/EC) 40 mg PO DAILY@08 RF: 0 Rocklatan 0.02-0.005 % Drops 1 drp OPHTHALMIC (EYE) DAILY@20 RF: 0 sennosides-docusate sodium 8.6-50 mg tablet 2 tab PO BID PRN (Reason: Constipation) RF: 0 sevelamer carbonate 800 mg tablet 800 mg PO TID RF: 0 atorvastatin 40 mg Tablet 40 mg PO DAILY@20 RF: 0 cholecalciferol (vitamin D3) [Vitamin D3] 25 mcg (1,000 unit) Tablet 25 mcg PO DAILY@08 RF: 0 midodrine 5 mg Tablet 5 mg PO TID@08,12,20 RF: 0 potassium chloride 10 mEq Tablet Extended Release 10 meq PO DAILY@08 RF: 0 clopidogrel 75 mg tablet 75 mg PO DAILY@08 RF: 0 levothyroxine 112 mcg tablet 224 mcg PO DAILY@0800 RF: 0 multivitamin [Multiple Vitamins] Tablet 1 tab PO DAILY@08 RF: 0 paricalcitol [Zemplar] 1 mcg capsule 1 mcg PO DAILY RF: 0 coenzyme Q10 [CoQ-10] 100 mg Capsule 100 mg PO DAILY@08 RF: 0 omega 7-jod-bcd-fish oil [Fish Oil] 300-1,000 mg Capsule,Delayed Release(Dr/Ec) 1 cap PO BID@08,20 RF: 0 brimonidine 0.2 % drops 1 drp ophthalmic (eye) BID@08,20 RF: 0 dorzolamide-timolol 22.3-6.8 mg/mL drops 1 drp ophthalmic (eye) BID@,20 RF: 0 Discharge Orders: Discharge Order (Routine); Ordered 07/21/20 Ordered By: Flash Luciano Referrals: Yovany Leonardo MD [Primary Care Provider] - 7-10 days Discharge Diet: Advance as tolerated and GI Soft Discharge Activity: Resume usual activity Activity Restrictions/Additional Instructions: Please continue taking GI soft/bland diet for next 2 weeks and then advance eventually. Please take levofloxacin as directed for next 4 weeks. Please take Reglan twice a day. Discharge Attestations Time Spent in Discharge Care*: greater than 30 min Specific Discharge Activities: educating patient, discussing with casework specialist/social workers/dc planners, documenting/other paperwork and evaluating patient/reviewing data Status at Discharge: Cognitive status at discharge: cognitively intact, Behavioral status at discharge: cooperative, Overall status at discharge: patient is back to baseline Quality Metrics Clinical Quality Measures During this hospital stay, did patient experience: None Coding Level of Care Code Acute Agency Legal Counsel for Maris Fwd Diagnoses Gram-negative bacteremia R78.81 Vomiting R11.10 Diverticulitis K57.92 ESRD (end stage renal disease) N18.6 Peritoneal dialysis catheter in place Z99.2 Diabetes E11.9 Gastroparesis due to DM E11.43; K31.84 CAD (coronary artery disease) I25.10 Coronary Disease-Associated Artery/Lesion type: [place] artery [place] vs. transplanted heart: [place] heart Associated angina: without angina Acute hypotension I95.9
[2020-07-21 13:33] VITALS: BP 110/76; PULSE 97; RESP 19; TEMP 36.7; O2SAT 99
[2020-07-21] MEDS: levoFLOXacin 500 mg Tablet PO (14:42)
[2020-07-21 14:55] VITALS: BP 110/76; PULSE 97; RESP 19; TEMP 36.7; O2SAT 99
== END 2020-07-21 14:56 | disposition home or self-care (01) | DRG 73 ==
LOC: ER 20:16 → ICU 21:21 → MEDSURG 07-18 13:25
PROVIDERS: Internal Medicine; Internal Medicine Nephrology; Admitting Provider Hospitalist; Emergency Provider Family Medicine; PCP Internal Medicine; Visit Provider Student in an Organized Health Care Education/Training Program
DX: E11.43 Type 2 diabetes mellitus with diabetic autonomic (poly)neuropathy (principal); N18.6 End stage renal disease; K57.32 Diverticulitis of large intestine without perforation or abscess without bleeding; I13.2 Hypertensive heart and chronic kidney disease with heart failure and with stage 5 chronic kidney disease, or end stage renal disease; I50.32 Chronic diastolic (congestive) heart failure; N39.0 Urinary tract infection, site not specified; E87.1 Hypo-osmolality and hyponatremia; K31.84 Gastroparesis; I95.9 Hypotension, unspecified; E11.22 Type 2 diabetes mellitus with diabetic chronic kidney disease; Z99.2 Dependence on renal dialysis; Z79.4 Long term (current) use of insulin; Z89.511 Acquired absence of right leg below knee; I25.10 Atherosclerotic heart disease of native coronary artery without angina pectoris; Z95.5 Presence of coronary angioplasty implant and graft; E03.9 Hypothyroidism, unspecified; F41.8 Other specified anxiety disorders; K21.9 Gastro-esophageal reflux disease without esophagitis; E11.51 Type 2 diabetes mellitus with diabetic peripheral angiopathy without gangrene; Z89.422 Acquired absence of other left toe(s); D63.1 Anemia in chronic kidney disease; E78.5 Hyperlipidemia, unspecified; N20.0 Calculus of kidney; F41.9 Anxiety disorder, unspecified; H81.10 Benign paroxysmal vertigo, unspecified ear; I65.29 Occlusion and stenosis of unspecified carotid artery; G89.29 Other chronic pain; M53.3 Sacrococcygeal disorders, not elsewhere classified; F40.240 Claustrophobia; Z79.82 Long term (current) use of aspirin; B96.89 Other specified bacterial agents as the cause of diseases classified elsewhere; E87.6 Hypokalemia; E83.42 Hypomagnesemia; E86.0 Dehydration; E55.9 Vitamin D deficiency, unspecified; Z86.73 Personal history of transient ischemic attack (TIA), and cerebral infarction without residual deficits; G47.33 Obstructive sleep apnea (adult) (pediatric)
CPT/HCPCS: 12345; 36415; 36416; 36600; 71045; 74176; 80048; 80051; 80053; 80202; 80500; 81001; 82009; 82330; 82533; 82550; 82805; 82945; 82962; 83540; 83550; 83605; 83615; 83690; 83735; 83880; 83986; 84100; 84145; 84157; 84300; 84439; 84443; 84481; 84484; 85025; 87040; 87070; 87075; 87077; 87086; 87106; 87186; 87205; 87641; 89050; 90935; 93005; 94660; 94664; 96372; 99284; J0696; J0743; J0744; J1815 ×2; J2270; J2405; J2765; J3370; J3475; J3480; J3490; J7030; Q3014; S0030

== ENCOUNTER 2020-08-14 08:45 | Inpatient (IN) | payer MEDICARE, MEDICAID, SELFPAY ==
[2020-08-14] VITALS (11 sets, daily range): BP systolic 104–128; BP diastolic 59–81; PULSE 80–85; RESP 16–22; TEMP 36.6–36.9; O2SAT 93–100; BMI 30.6
--- NOTE | 2020-08-14 08:55 | CT_ITS ---
WS: [id number] CT ABDOMEN PELVIS TECHNIQUE: Contrast-enhanced CT of the abdomen and pelvis with coronal and sagittal reformatted image s. CLINICAL INFORMATION: abd pain COMPARISON: Multiple prior CTs including July 2020 and June 2020 DLP: 1931.[address] scans at [facility] use at least one of these dose optimization techniques: automat ed exposure control; mA and/or kV adjustment per patient size (includes targeted exams where dose is matched to clinical indication); or iterative reconstruction. FINDINGS: Peritoneal dialysis catheter. Prior hysterectomy and cholecystectomy. Again seen is the peritoneal di alysis catheter with mild perihepatic and perisplenic ascites. Mild ascites in the pelvis. This is si milar to previous. Previously described mild diverticulitis has resolved. Fat-containing umbilical he rnia with a small amount of associated fluid is unchanged. No other significant changes from previous . Slight atelectasis in the lung bases. Mild diffuse fatty infiltration liver. Normal portal vein and s plenic vein. Small esophageal hiatal hernia. Splenic granulomas. Splenic artery calcification. Adrena l glands are normal. Bilateral renal cortical scarring. No hydronephrosis. Pelvic phleboliths. Normal sigmoid colon. No evidence of small or large bowel obstruction. CT/CT abdomen pelvis w con* [id number] IMPRESSION: 1. Previously described diverticulitis has resolved since July 17, 2020. 2. Stable peritoneal dialysis catheter with mild ascites is unchanged. 3. Stable fat-containing umbilical hernia with a small amount of associated fl uid. No herniated bowel. 4. Small esophageal hiatal hernia. 5. Mild diffuse fatty infiltration of the liver. 6. No other significant changes from previous.
--- NOTE | 2020-08-14 08:55 | XR_ITS ---
WS: [id number] Portable AP upright chest, 08/14/2020 Clinical Data: dyspnea/cough Comparison: Portable chest, 07/17/2020. Findings: No nodules, masses or effusions are seen. The heart is normal. The pulmonary vascularity is not increased. No pneumonia or pneumothorax is seen. Minimal atelectasis is seen in both lower lobes . The patient has a poor inspiratory effort. XR/XR chest 1V portable [id number] Impression: Negative chest.
--- NOTE | 2020-08-14 09:05 | W.ED.NAVMDI ---
HPI - Nausea/Vomiting/Diarrhea General: Chief complaint: Nausea/Vomiting/Diarrhea Stated complaint: vomiting, cannot eat or drink Time Seen by Provider: 08/14/20 08:47 History of Present Illness: HPI Narrative: 55-year-old female history of diabetes mellitus gastroparesis comes in complaining of persistent nausea vomiting for last 2 days she denies any hematochezia or melena. She also reports abdominal pain refers to, generally periumbilical slightly to the left of the umbilicus. No dysuria urgency or frequency. Patient has had a previous below the knee amputation secondary to her diabetes on her right leg. No chest pain no shortness of breath. MD elicited complaint: nausea and vomiting Onset (ago): day(s) Description of vomiting: food contents and bilious Associated nausea: Yes Associated abdominal pain: Yes Location of pain: Epigastric Pain consistency: constant Severity: moderate Quality: cramping Exacerbating factors: eating and vomiting Context: other (diabetes) Associated symtoms: Reports bloating, fatigue, anorexia, malaise and nausea; Denies altered mental status, anxiety, change in vision, chest pain, cough, diaphoresis, decreased urine output, dizziness, dysuria, epistaxis, fecal incontinence, fevers/chills, headache(s), myalgias, numbness, palpitations, rash, short of breath, syncope, tenesmus, tinnitus or weakness Review of Systems Const: Reports: fatigue and malaise; Denies: diaphoresis Eyes: Denies: change in vision ENMT: Denies: tinnitus or epistaxis Card: Denies: chest pain, palpitations or syncope Resp: Denies: dyspnea, productive cough or non-productive cough GI: Reports: nausea and bloating; Denies: fecal incontinence : Denies: dysuria Skin/Breast: Denies: rash or pruritus Neuro: Denies: headache(s) or dizziness Psych: Denies: anxiety PFSH ED PFSH: Medical History Anxiety BPPV (benign paroxysmal positional vertigo) CAD (coronary artery disease) Carotid stenosis Chronic diastolic CHF (congestive heart failure) Chronic left sacroiliac joint pain Claustrophobia Depression Diabetes Insulin-dependent End stage renal disease peritoneal dialysis ESBL (extended spectrum beta-lactamase) producing bacteria infection ESRD (end stage renal disease) Gastroparesis GERD (gastroesophageal reflux disease) HTN (hypertension) Hyperlipidemia Hypothyroidism Insulin dependent diabetes mellitus DOROTEO on CPAP Partial nontraumatic amputation of left foot (~06/2019) Peripheral vascular disease Phantom pain Suicidal ideation TIA (transient ischemic attack) Vitamin D deficiency Surgical History H/O hysterectomy with oophorectomy History of appendectomy History of heart artery stent History of hysterectomy History of left heart catheterization History of right below knee amputation Peritoneal dialysis catheter in place S/P cholecystectomy S/P PICC central line placement Status post amputation of toe Family History Denies family history of CAD (coronary artery disease) Clotting disorder Dementia Bleeding disorder Social History Smoking and tobacco status: never smoked Alcohol intake: never Household members: spouse and family History of recent travel: No Physical Exam Const: COMMON NORMALS: no acute distress EXAM LIMITATIONS: no altered mental status GENERAL APPEARANCE: cooperative and comfortable ORIENTATION/CONSCIOUSNESS: Yes awake, Yes oriented to person, Yes oriented to place and Yes oriented to time HENMT: COMMON NORMALS: normocephalic, atraumatic and hearing grossly normal bilaterally HEAD & SCALP: normocephalic and atraumatic Neck/C-Spine: COMMON NORMALS: no JVD Resp: COMMON NORMALS: normal respiratory effort, No retractions, No use of accessory muscles and clear to auscultation bilaterally AUSCULTATION: clear to auscultation bilaterally Cardio: COMMON NORMALS: no JVD, regular rate, regular rhythm and No murmurs present (Cardio) RATE: regular rate RHYTHM: regular rhythm GI: COMMON NORMALS: Soft to palpation and No hepatosplenomegaly present AUSCULTATION: Yes normoactive bowel sounds PALPATION: Yes Soft to palpation, No Tenderness to palpation present (GI), No Guarding due to palpation present (GI) and Yes No hepatosplenomegaly present Extremity: COMMON NORMALS: normal to inspection, capillary refill normal, no clubbing, cyanosis or edema, no calf tenderness and no pedal edema Neuro: SENSORIUM/ORIENTATION: Yes oriented to person, Yes oriented to place and Yes oriented to time Skin: COMMON NORMALS: no rashes or lesions noted GENERAL SKIN EXAM: no rashes or lesions noted Course Vital Signs: Vital signs: Vital Signs Temperature 98.2 F 08/17/20 07:39 Pulse Rate 59 L 08/17/20 07:39 Respiratory Rate 19 H 08/17/20 07:41 Blood Pressure 115/67 08/17/20 07:39 Pulse Oximetry 97 08/17/20 07:39 MDM - Nausea/Vomiting/Diarrhea MDM Narrative: Medical decision making narrative: Patient still has persistent vague abdominal pain with nausea and vomiting. Think some of it is her diabetic gastroparesis however concerned with her lactate elevated that she may have a peritonitis related to her dialysis. We will start her on ceftriaxone cultures done patient admitted discussed Dr. Singh Lab Data: Labs: Lab Results 08/14/20 08/14/20 08/14/20 Range/Units 09:26 09:26 09:26 WBC 4.9 (4.0-10.0) 10^3/ uL RBC 3.03 L (4.1-5.3) 10^6/u L Hgb 9.9 L (11.5-15.3) g/dL Hct 30.0 L (37.0-47.0) % MCV 99.0 (81-99) fL MCH 32.7 (28.0-34.0) pg MCHC 33.0 (30.0-36.0) g/dL RDW 12.9 (12.1-15.1) % Plt Count 184 (130-400) 10^3/c mm MPV 12.5 H (7.4-10.4) fL Neut % (Auto) 84.9 % Lymph % (Auto) 9.2 % [place] % (Auto) 5.1 % Eos % (Auto) 0.0 % Baso % (Auto) 0.2 % Neut # (Auto) 4.13 (1.8-7.7) 10^3/u L Lymph # (Auto) 0.5 L (0.8-4.8) 10^3/u L [place] # (Auto) 0.3 (0.2-0.9) 10^3/u L Eos # (Auto) 0.0 (0.0-0.8) 10^3/u L Baso # (Auto) 0.0 (0.0-0.1) 10^3/u L Nucleated RBC % (a uto) 0 % Nucleated RBCs # 0.0 /100WBC Specimen Type Sample Site ABG pH (7.35-7.45) ABG pCO2 (35-45) mmHg ABG pO2 (80.0-100.0) mmH g ABG HCO3 (22-26) mmol/L ABG O2 Saturation ABG Base Excess (-2.0-2.0) mmol/ L Jason Test A-a O2 Gradient (5-10) mmHg Hematocrit (37-47) % Hgb O2 Saturation (95-100) % Carboxyhemoglobin (0.4-20.1) %THgb Methemoglobin (0.4-1.5) % Total Hemoglobin (12-16) g/dL Ionized Calcium (1.1-1.4) mmol/L O2 Delivery Device Process Equipment Operator ID Sodium 125 L (136-145) mmol/L Potassium 3.8 (3.5-5.1) mmol/L Chloride 83 L (98-107) mmol/L Carbon Dioxide 24 (22-29) mmol/L Anion Gap 21.8 H (5-19) BUN 28 H (6-20) mg/dL Creatinine 4.4 H (0.5-0.9) mg/dL GFR Calculation 10.4 L (90-130) mL/min Glucose 521 H* (65-115) mg/dL POC Glucose (70-110) mg/dL Calculated Osmolal ity 289 (285-295) mOsm/k g Lactic Acid 3.9 H (0.5-2.2) mmol/L Calcium 9.7 (8.5-10.5) mg/dL Magnesium 1.2 L (1.7-2.3) mg/dL Total Bilirubin 0.7 (0.15-1.2) mg/dL AST 7 (0-32) U/L ALT 7 (0-33) U/L Alkaline Phosphata se 95 (35-105) IU/L Creatine Kinase 23 L (26-192) U/L Troponin T Baselin e (0-10) ng/L Total Protein 6.3 L (6.6-8.7) g/dL Albumin 3.2 L (3.5-5.2) g/dL Globulin 3.1 (1.3-4.6) g/dL Lipase 27 (13-60) U/L Urine Color (Yellow) Urine Appearance (CLEAR) Urine pH (5-7) Ur Specific Gravit y (1.005-1.030) Urine Protein (Negative) Urine Glucose (UA) (Normal) Urine Ketones (Negative) Urine Blood (Negative) Urine Nitrate (Negative) Urine Bilirubin (Negative) Prot Sulfosalicyli c Acd (Negative) Urine Urobilinogen (Negative) mg/dL Ur Leukocyte Yara ase (Negative) Urine RBC (0-2) /hpf Urine WBC (0-5) /hpf Ur Squamous Epith Cells (0-5) /hpf Amorphous Sediment Urine Bacteria (NONE) /hpf Serum Ketones (Negative) 08/14/20 08/14/20 08/14/20 Range/Units 09:26 09:26 09:42 WBC (4.0-10.0) 10^3/ uL RBC (4.1-5.3) 10^6/u L Hgb (11.5-15.3) g/dL Hct (37.0-47.0) % MCV (81-99) fL MCH (28.0-34.0) pg MCHC (30.0-36.0) g/dL RDW (12.1-15.1) % Plt Count (130-400) 10^3/c mm MPV (7.4-10.4) fL Neut % (Auto) % Lymph % (Auto) % [place] % (Auto) % Eos % (Auto) % Baso % (Auto) % Neut # (Auto) (1.8-7.7) 10^3/u L Lymph # (Auto) (0.8-4.8) 10^3/u L [place] # (Auto) (0.2-0.9) 10^3/u L Eos # (Auto) (0.0-0.8) 10^3/u L Baso # (Auto) (0.0-0.1) 10^3/u L Nucleated RBC % (a uto) % Nucleated RBCs # /100WBC Specimen Type Arterial Sample Site Brachial, left ABG pH 7.46 H (7.35-7.45) ABG pCO2 37.3 (35-45) mmHg ABG pO2 81.4 (80.0-100.0) mmH g ABG HCO3 26.7 H (22-26) mmol/L ABG O2 Saturation 97.2 ABG Base Excess 2.8 H (-2.0-2.0) mmol/ L Jason Test N/a A-a O2 Gradient 2.8 L (5-10) mmHg Hematocrit 35.0 L (37-47) % Hgb O2 Saturation 95.7 (95-100) % Carboxyhemoglobin 1.2 (0.4-20.1) %THgb Methemoglobin 0.4 (0.4-1.5) % Total Hemoglobin 11.4 L (12-16) g/dL Ionized Calcium 1.2 (1.1-1.4) mmol/L O2 Delivery Device Room air Process Equipment Operator ID Gd Sodium 127.0 L (136-145) mmol/L Potassium 3.3 L (3.5-5.1) mmol/L Chloride (98-107) mmol/L Carbon Dioxide (22-29) mmol/L Anion Gap (5-19) BUN (6-20) mg/dL Creatinine (0.5-0.9) mg/dL GFR Calculation (90-130) mL/min Glucose 518.0 H (65-115) mg/dL POC Glucose (70-110) mg/dL Calculated Osmolal ity (285-295) mOsm/k g Lactic Acid (0.5-2.2) mmol/L Calcium (8.5-10.5) mg/dL Magnesium (1.7-2.3) mg/dL Total Bilirubin (0.15-1.2) mg/dL AST (0-32) U/L ALT (0-33) U/L Alkaline Phosphata se (35-105) IU/L Creatine Kinase (26-192) U/L Troponin T Baselin e 131 H* (0-10) ng/L Total Protein (6.6-8.7) g/dL Albumin (3.5-5.2) g/dL Globulin (1.3-4.6) g/dL Lipase (13-60) U/L Urine Color (Yellow) Urine Appearance (CLEAR) Urine pH (5-7) Ur Specific Gravit y (1.005-1.030) Urine Protein (Negative) Urine Glucose (UA) (Normal) Urine Ketones (Negative) Urine Blood (Negative) Urine Nitrate (Negative) Urine Bilirubin (Negative) Prot Sulfosalicyli c Acd (Negative) Urine Urobilinogen (Negative) mg/dL Ur Leukocyte Yara ase (Negative) Urine RBC (0-2) /hpf Urine WBC (0-5) /hpf Ur Squamous Epith Cells (0-5) /hpf Amorphous Sediment Urine Bacteria (NONE) /hpf Serum Ketones Negative (Negative) 08/14/20 08/14/20 Range/Units 10:30 12:14 WBC (4.0-10.0) 10^3/ uL RBC (4.1-5.3) 10^6/u L Hgb (11.5-15.3) g/dL Hct (37.0-47.0) % MCV (81-99) fL MCH (28.0-34.0) pg MCHC (30.0-36.0) g/dL RDW (12.1-15.1) % Plt Count (130-400) 10^3/c mm MPV (7.4-10.4) fL Neut % (Auto) % Lymph % (Auto) % [place] % (Auto) % Eos % (Auto) % Baso % (Auto) % Neut # (Auto) (1.8-7.7) 10^3/u L Lymph # (Auto) (0.8-4.8) 10^3/u L [place] # (Auto) (0.2-0.9) 10^3/u L Eos # (Auto) (0.0-0.8) 10^3/u L Baso # (Auto) (0.0-0.1) 10^3/u L Nucleated RBC % (a uto) % Nucleated RBCs # /100WBC Specimen Type Sample Site ABG pH (7.35-7.45) ABG pCO2 (35-45) mmHg ABG pO2 (80.0-100.0) mmH g ABG HCO3 (22-26) mmol/L ABG O2 Saturation ABG Base Excess (-2.0-2.0) mmol/ L Jason Test A-a O2 Gradient (5-10) mmHg Hematocrit (37-47) % Hgb O2 Saturation (95-100) % Carboxyhemoglobin (0.4-20.1) %THgb Methemoglobin (0.4-1.5) % Total Hemoglobin (12-16) g/dL Ionized Calcium (1.1-1.4) mmol/L O2 Delivery Device Process Equipment Operator ID Sodium (136-145) mmol/L Potassium (3.5-5.1) mmol/L Chloride (98-107) mmol/L Carbon Dioxide (22-29) mmol/L Anion Gap (5-19) BUN (6-20) mg/dL Creatinine (0.5-0.9) mg/dL GFR Calculation (90-130) mL/min Glucose (65-115) mg/dL POC Glucose 329 H (70-110) mg/dL Calculated Osmolal ity (285-295) mOsm/k g Lactic Acid (0.5-2.2) mmol/L Calcium (8.5-10.5) mg/dL Magnesium (1.7-2.3) mg/dL Total Bilirubin (0.15-1.2) mg/dL AST (0-32) U/L ALT (0-33) U/L Alkaline Phosphata se (35-105) IU/L Creatine Kinase (26-192) U/L Troponin T Baselin e (0-10) ng/L Total Protein (6.6-8.7) g/dL Albumin (3.5-5.2) g/dL Globulin (1.3-4.6) g/dL Lipase (13-60) U/L Urine Color Straw (Yellow) Urine Appearance Clear (CLEAR) Urine pH 8 H (5-7) Ur Specific Gravit y 1.010 (1.005-1.030) Urine Protein 2+ H (Negative) Urine Glucose (UA) 4+ H (Normal) Urine Ketones Negative (Negative) Urine Blood 2+ H (Negative) Urine Nitrate Negative (Negative) Urine Bilirubin Neg (Negative) Prot Sulfosalicyli c Acd Negative (Negative) Urine Urobilinogen Norm (Negative) mg/dL Ur Leukocyte Yara ase Negative (Negative) Urine RBC 0-4 H (0-2) /hpf Urine WBC 0-4 H (0-5) /hpf Ur Squamous Epith Cells 0-4 H (0-5) /hpf Amorphous Sediment Not Reportable Urine Bacteria Trace (NONE) /hpf Serum Ketones (Negative) Discharge Plan Discharge Patient Disposition: Admitted As Inpatient Admit Provider: Felicia Singh Clinical Impression: Peritonitis associated with peritoneal dialysis, Gastroparesis due to DM, Diabetes mellitus, Acute hyponatremia Condition: Stable Coding Level of Care Code ED Advanced Clinical Specialist for Maris Braden
[2020-08-14] MEDS: iodixanol 320 mg/mL 100mL Btl IV (09:41)
[2020-08-14] MEDS: sodium chloride 0.9% 1,000 ML 999 ML IV ×3 (09:51→12:25)
[2020-08-14 09:54] LABS: Basophils % 0.2 %; Hemoglobin 9.9 g/dL (11.5-15.3); Lymphocytes # 0.5 10^3/uL (0.8-4.8); Lymphocytes % 9.2 %; Mean Corpuscular Hemoglobin 32.7 pg (28.0-34.0); Mean Platelet Volume 12.5 fL (7.4-10.4); Monocytes # 0.3 10^3/uL (0.2-0.9); Monocytes % 5.1 %; Neutrophils # 4.13 10^3/uL (1.8-7.7); Neutrophils % 84.9 %; Nucleated Red Blood Cells % 0 %; Platelet Count 184 10^3/cmm (130-400); Red Blood Count 3.03 10^6/uL (4.1-5.3); Red Cell Distribution Width 12.9 % (12.1-15.1); White Blood Count 4.9 10^3/uL (4.0-10.0)
[2020-08-14 10:01] LABS: ABG PCO2 37.3 mmHg (35-45); ABG PH Result 7.46 (7.35-7.45); Alveolar-Arterial Oxygen Gradi 2.8 mmHg (5-10); Base Excess ABG 2.8 mmol/L (-2.0-2.0); Blood Gas Operator Identificat GD; Blood Gas Sample Site Brachial, left; Blood Gas Sample Type Arterial; Carboxyhemoglobin 1.2 %THgb (0.4-20.1); HCO3 ABG 26.7 mmol/L (22-26); HGB O2 Sat 95.7 % (95-100); Ionized Calcium Level - ABG 1.2 mmol/L (1.1-1.4); Methemoglobin 0.4 % (0.4-1.5); Oxygen Device ROOM AIR; Oxygen Saturation ABG 97.2; PO2 ABG 81.4 mmHg (80.0-100.0); Potassium Level - ABG 3.3 mmol/L (3.5-5.0); Total Hemoglobin 11.4 g/dL (12-16)
[2020-08-14 10:07] LABS: Ketone (Acetest) Serum Negative (Negative)
[2020-08-14 10:19] LABS: Alanine Aminotransferase 7 U/L (0-33); Albumin Level 3.2 g/dL (3.5-5.2); Alkaline Phosphatase 95 IU/L (35-105); Anion Gap 21.8 (5-19); Aspartate Amino Transferase 7 U/L (0-32); Blood Urea Nitrogen 28 mg/dL (6-20); Calcium 9.7 mg/dL (8.5-10.5); Carbon Dioxide 24 mmol/L (22-29); Chloride 83 mmol/L (98-107); Creatine Phosphokinase 23 U/L (26-192); Globulin 3.1 g/dL (1.3-4.6); Glomerular Filtration Rate 10.4 mL/min (90-130); Lactic Sepsis W/Reflex 3.9 mmol/L (0.5-2.2); Lipase 27 U/L (13-60); Magnesium 1.2 mg/dL (1.7-2.3); Osmolality Calculated 289 mOsm/kg (285-295); Potassium 3.8 mmol/L (3.5-5.1); Sodium 125 mmol/L (136-145); Total Bilirubin 0.7 mg/dL (0.15-1.2); Total Protein 6.3 g/dL (6.6-8.7)
[2020-08-14 10:21] LABS: Glucose 521 mg/dL (65-115)
[2020-08-14 10:59] LABS: Add Urine Culture? No; Add Urine Microscopic? YES; Bacteria Urine TRACE /hpf; Bilirubin Urine Neg (Negative); Blood Urine 2+ (Negative); Glucose Urine UA 4+ (Normal); Ketones Urine Negative (Negative); Leukocyte Esterase Urine Negative (Negative); Nitrate Urine Negative (Negative); Protein Urine 2+ (Negative); RBC Urine 0-4 /hpf (0-2); Squamous Epithelial Cell Urine 0-4 /hpf (0-5); Sulfosalicylic Acid Urine Negative (Negative); Urine Appearance Clear (CLEAR); Urine Color Straw (Yellow); Urobilinogen Urine Norm (Negative); WBC Urine 0-4 /hpf (0-5); pH Urine 8 (5-7)
[2020-08-14] MEDS: LORazepam 2 mg/mL INJ 1 mL IVP (11:19)
[2020-08-14] MEDS: insulin regular-human 100 units/1 mL 10 UNIT IVP ×2 (11:21→12:26)
[2020-08-14 11:23] LABS: Reflex Lactate Order REFLEX LACTIC ORDERD
[2020-08-14] MEDS: cefTRIAXone 2,000 MG in sodium chloride 0.9% (plus) 50 ML 100 MG IV (11:28)
[2020-08-14 12:17] LABS: Glucose Point of Care 329 mg/dL (70-110)
[2020-08-14 13:49] LABS: Troponin(5th) Baseline 131 ng/L (0-10)
--- NOTE | 2020-08-14 14:21 | ECG_ITS ---
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 Measurements Intervals [place] Rate: 80 P: -82 WV: 157 QRS: -62 QRSD: 83 T: -56 QT: 332 QTc: 383 Interpretive Statements ECTOPIC ATRIAL RHYTHM LEFT AXIS DEVIATION [QRS AXIS < -30] POSSIBLE ANTERIOR MYOCARDIAL INFARCTION , OF INDETERMINATE AGE [30 ms Q WAVE IN V3/V4, OR R < 0.2 mV IN V4] Compared to ECG 07/17/2020 18:19:36 Ectopic atrial rhythm now present Left-axis deviation now present Sinus rhythm no longer present Myocardial infarct finding still present Electronically Signed On 08-14-2020 18:58:42 LAY OUT TECHNICIAN by Soraya Ignacio M.D. [id number]
[2020-08-14 14:31] LABS: Blood Urea Nitrogen 26 mg/dL (6-20); Calcium 9.2 mg/dL (8.5-10.5); Carbon Dioxide 22 mmol/L (22-29); Chloride 91 mmol/L (98-107); Glomerular Filtration Rate 11.6 mL/min (90-130); Glucose 197 mg/dL (65-115); Osmolality Calculated 276 mOsm/kg (285-295); Sodium 128 mmol/L (136-145)
[2020-08-14 14:40] LABS: Anion Gap 18.5 (5-19); Potassium 3.5 mmol/L (3.5-5.1)
[2020-08-14 14:41] LABS: Troponin 5 2HR 122.8 ng/L (0-10)
[2020-08-14 14:42] LABS: Troponin 5 2HR Delta -8.2 ABS# (0-10)
[2020-08-14] MEDS: sodium chloride 0.9% 1,000 ML 150 ML IV (14:45)
[2020-08-14 15:40] LABS: Basophils % 0.2 %; Eosinophils # 0.1 10^3/uL (0.0-0.8); Eosinophils % 1.5 %; Hematocrit 26.6 % (37.0-47.0); Hemoglobin 9.1 g/dL (11.5-15.3); Lymphocytes # 0.7 10^3/uL (0.8-4.8); Lymphocytes % 12.1 %; Mean Corpuscular HGB Conc 34.2 g/dL (30.0-36.0); Mean Corpuscular Hemoglobin 32.7 pg (28.0-34.0); Mean Corpuscular Volume 95.7 fL (81-99); Mean Platelet Volume 12.1 fL (7.4-10.4); Monocytes # 0.4 10^3/uL (0.2-0.9); Monocytes % 6.3 %; Neutrophils # 4.68 10^3/uL (1.8-7.7); Neutrophils % 79.7 %; Nucleated Red Blood Cells % 0 %; Platelet Count 177 10^3/cmm (130-400); Red Blood Count 2.78 10^6/uL (4.1-5.3); Red Cell Distribution Width 12.5 % (12.1-15.1); White Blood Count 5.9 10^3/uL (4.0-10.0)
[2020-08-14 15:43] LABS: Lactate (Lactic Acid level) 2.6 mmol/L (0.5-2.2)
[2020-08-14 16:14] LABS: Troponin 5 6HR 125.8 ng/L (0-10); Troponin 5 6HR Delta -5.2 ng/L (0-12)
[2020-08-14 16:55] LABS: Glucose Point of Care 194 mg/dL (70-110)
[2020-08-14 17:02] LABS: Reflex Lactate Order REFLEX LACTIC ORDERD
--- NOTE | 2020-08-14 18:25 | PM.HP ---
Providers/Chief Complaint Admitting Physician: Felicia Singh MD Primary Care Provider: Yovany Leonardo MD Chief Complaint: vomiting, cannot eat or drink History of Present Illness Rizwana Herzog is a 55 year old female with multiple comorbidities as listed below in past medical history, notably end-stage renal disease on peritoneal dialysis, diabetes mellitus, gastroparesis who presented to ER today complaining of persistent nausea vomiting, inability to keep any food down. Also reports abdominal pain. Reportedly has a history of PD peritonitis in June of this year. Current PD catheter has been in place since 4 years. Recent history significant for Acinetobacter bacteremia on July 17, 2020, treated with 1 month of levofloxacin based on susceptibility, renally dosed.. Source was likely to be GI translocation from diverticulitis which was evidenced on CT at the time, concomitant urinary and peritoneal cultures were negative at the time. She is does PD at home every night. Denies any diarrhea. No complains of fever. Review of Systems General: Reports: 10 or more systems reviewed and unremarkable except in HPI and below Const: Denies: fever(s), chills or body aches Eyes: Denies: change in vision, blurry vision or photophobia ENMT: Reports: hoarseness; Denies: throat pain, enlarged tonsils, odynophagia or nasal congestion Card: Denies: chest pain, palpitations, irregular heart rhythm, edema, swelling of feet/ankles, lightheadedness, pre-syncope, dyspnea on exertion or orthopnea Resp: Denies: dyspnea, productive cough, non-productive cough, wheezing, stridor, pain on inspiration, change in phlegm color, hemoptysis or chest congestion GI: Reports: abdominal pain, nausea and vomiting; Denies: hematemesis, coffee ground emesis, dysphagia, heartburn, diarrhea, constipation, GI cramping, change in stool character, hematochezia or melena : Denies: flank pain, difficulty voiding, dysuria, urinary frequency, urinary urgency, urinary hesitancy or hematuria Musc: Denies: neck pain, back pain, extremity pain, joint swelling, joint warmth or deformity Neuro: Denies: headache(s), numbness in extremities, weakness in extremities, sensory changes, difficulty walking, frequent falls, dizziness, vertigo, behavioral changes, Slurred speech present or seizure-like activity Psych: Denies: anxiety, depression, suicidal ideation or homicidal ideation Endo: Denies: polyuria, polydipsia, tired all the time, cold intolerance or hot flashes Refugio/Lymph: Denies: easy bruising or easy bleeding Medications/Allergies Home Medications Medication Instructions Recorded Confirmed Last Taken Type aspirin 81 mg PO DAILY@06/25/19 08/14/20 08/13/20 History multivitamin [Multiple Vitamins] 1 tab PO DAILY@06/30/19 08/14/20 08/13/20 History ferric citrate 210 mg iron tablet See Rx Instructions .ROUTE 09/06/19 08/14/20 08/13/20 History .COMPLEX tab coenzyme Q10 [CoQ-10] 100 mg PO DAILY@01/17/20 08/14/20 08/13/20 History omega 2-gao-itq-fish oil [Fish Oil] 1 cap PO BID@01/17/20 08/14/20 08/13/20 History brimonidine 1 drp OPHTHALMIC (EYE) BID@01/31/20 08/14/20 08/13/20 History dorzolamide-timolol 1 drp OPHTHALMIC (EYE) BID@01/31/20 08/14/20 08/13/20 History pantoprazole 40 mg PO DAILY@02/16/20 08/14/20 08/13/20 History nitroglycerin 0.4 mg sublingual 0.4 mg SUBLINGUAL Q5M PRN #25 tab 03/26/20 08/14/20 04/18/20 Rx tablet Rocklatan 1 drp OPHTHALMIC (EYE) DAILY@04/18/20 08/14/20 08/13/20 History sennosides-docusate sodium 2 tab PO BID PRN 04/18/20 08/14/20 04/28/20 History sevelamer carbonate 800 mg PO TID 04/29/20 08/14/20 08/13/20 History atorvastatin 40 mg PO DAILY@05/14/20 08/14/20 08/13/20 History cholecalciferol (vitamin D3) 25 mcg PO DAILY@05/14/20 08/14/20 08/13/20 History [Vitamin D3] paricalcitol 1 mcg capsule 1 mcg PO DAILY cap 12/08/14/20 08/13/20 History insulin glargine 100 unit/mL (3 50 unit SUBCUT BID@ #15 ml 06/17/20 08/14/20 08/13/20 Rx mL) subcutaneous pen levothyroxine 224 mcg PO DAILY@0800 07/10/20 08/14/20 08/13/20 History midodrine 5 mg PO TID@,,07/10/20 08/14/20 08/13/20 History potassium chloride 10 meq PO DAILY@08 07/10/20 08/14/20 08/13/20 History levofloxacin 250 mg PO Q48H 28 Days #14 tab 07/21/20 08/14/20 08/13/20 Rx metoclopramide HCl [Reglan] 5 mg PO DAILY #30 tab 07/21/20 08/14/20 08/13/20 Rx clopidogrel 75 mg tablet 75 mg PO DAILY@08 #90 tab 08/08/20 08/14/20 08/13/20 Rx Allergies Allergy/AdvReac Type Severity Reaction Status Date / Time metformin [From Glucophage] Allergy Severe Unknown Verified 08/08/20 10:51 venlafaxine [From Effexor] Allergy Severe ADR-Shakine Verified 08/08/20 10:51 ss PFSH Acute PFSH: Medical History Anxiety BPPV (benign paroxysmal positional vertigo) CAD (coronary artery disease) Carotid stenosis Chronic diastolic CHF (congestive heart failure) Chronic left sacroiliac joint pain Claustrophobia Depression Diabetes Insulin-dependent End stage renal disease peritoneal dialysis ESBL (extended spectrum beta-lactamase) producing bacteria infection ESRD (end stage renal disease) Gastroparesis GERD (gastroesophageal reflux disease) HTN (hypertension) Hyperlipidemia Hypothyroidism Insulin dependent diabetes mellitus DOROTEO on CPAP Partial nontraumatic amputation of left foot (~06/2019) Peripheral vascular disease Phantom pain Suicidal ideation TIA (transient ischemic attack) Vitamin D deficiency Surgical History H/O hysterectomy with oophorectomy History of appendectomy History of heart artery stent History of hysterectomy History of left heart catheterization History of right below knee amputation Peritoneal dialysis catheter in place S/P cholecystectomy S/P PICC central line placement Status post amputation of toe Family History Denies family history of CAD (coronary artery disease) Clotting disorder Dementia Bleeding disorder Social History Smoking and tobacco status: never smoked Alcohol intake: never Household members: spouse and family History of recent travel: No Vitals/I&O/Wt Last Vital Signs Temp 97.8 F 08/14/20 16:00 Pulse 80 08/14/20 16:00 Resp 18 08/14/20 16:00 BP 104/72 08/14/20 16:00 Pulse Ox 98 08/14/20 16:00 08/14/20 08/14/20 08/14/20 06:59 14:59 22:59 Intake Total 3050 / 3050 60 / 3110 Balance 3050 / 3050 60 / 3110 Weight last 48 hrs Weight 83.461 kg Physical Exam Narrative: EXAM NARRATIVE: General: No acute distress, AO x3 HEENT: PERRLA, pupils bilaterally equal and reactive, pallors not present Chest: Normal vesicular breath sounds, no added sounds, equal good air entry bilaterally CVS: S1-S2 regular, no murmurs, no tachycardia, no gallops, no rubs Abdomen: Soft, nontender, no organomegaly, bowel sounds present Neuro: No focal deficits, no facial deformity, AO x3, power 5/5 in all limbs Data : 08/14/20 15:06 08/14/20 13:50 Micro: Microbiology 08/14/20 11:15 Blood Culture - Preliminary Blood SPECIMEN COLLECTED 08/14/20 11:15 Blood Culture - Preliminary Blood SPECIMEN COLLECTED Other data: Laboratory Results WBC 5.9 10^3/uL (4.0-10.0) 08/14/20 15:06 RBC 2.78 10^6/uL (4.1-5.3) L 08/14/20 15:06 Hgb 9.1 g/dL (11.5-15.3) L 08/14/20 15:06 Hct 26.6 % (37.0-47.0) L 08/14/20 15:06 MCV 95.7 fL (81-99) 08/14/20 15:06 MCH 32.7 pg (28.0-34.0) 08/14/20 15:06 MCHC 34.2 g/dL (30.0-36.0) 08/14/20 15:06 RDW 12.5 % (12.1-15.1) 08/14/20 15:06 Plt Count 177 10^3/cmm (130-400) 08/14/20 15:06 MPV 12.1 fL (7.4-10.4) H 08/14/20 15:06 Neut % (Auto) 79.7 % 08/14/20 15:06 Lymph % (Auto) 12.1 % 08/14/20 15:06 [place] % (Auto) 6.3 % 08/14/20 15:06 Eos % (Auto) 1.5 % 08/14/20 15:06 Baso % (Auto) 0.2 % 08/14/20 15:06 Neut # (Auto) 4.68 10^3/uL (1.8-7.7) 08/14/20 15:06 Lymph # (Auto) 0.7 10^3/uL (0.8-4.8) L 08/14/20 15:06 [place] # (Auto) 0.4 10^3/uL (0.2-0.9) 08/14/20 15:06 Eos # (Auto) 0.1 10^3/uL (0.0-0.8) 08/14/20 15:06 Baso # (Auto) 0.0 10^3/uL (0.0-0.1) 08/14/20 15:06 Nucleated RBC % (auto) 0 % 08/14/20 15:06 Nucleated RBCs # 0.0 /100WBC 08/14/20 15:06 Specimen Type Arterial 08/14/20 09:42 Sample Site Brachial, left 08/14/20 09:42 ABG pH 7.46 (7.35-7.45) H 08/14/20 09:42 ABG pCO2 37.3 mmHg (35-45) 08/14/20 09:42 ABG pO2 81.4 mmHg (80.0-100.0) 08/14/20 09:42 ABG HCO3 26.7 mmol/L (22-26) H 08/14/20 09:42 ABG O2 Saturation 97.2 08/14/20 09:42 ABG Base Excess 2.8 mmol/L (-2.0-2.0) H 08/14/20 09:42 Jason Test N/a 08/14/20 09:42 A-a O2 Gradient 2.8 mmHg (5-10) L 08/14/20 09:42 Hematocrit 35.0 % (37-47) L 08/14/20 09:42 Hgb O2 Saturation 95.7 % (95-100) 08/14/20 09:42 Carboxyhemoglobin 1.2 %THgb (0.4-20.1) 08/14/20 09:42 Methemoglobin 0.4 % (0.4-1.5) 08/14/20 09:42 Total Hemoglobin 11.4 g/dL (12-16) L 08/14/20 09:42 Sodium 127.0 mmol/L (131-143) L 08/14/20 09:42 Potassium 3.3 mmol/L (3.5-5.0) L 08/14/20 09:42 Glucose 518.0 mg/dL (70-115) H 08/14/20 09:42 Ionized Calcium 1.2 mmol/L (1.1-1.4) 08/14/20 09:42 O2 Delivery Device Room air 08/14/20 09:42 Cco & President ID Gd 08/14/20 09:42 Sodium 128 mmol/L (136-145) L 08/14/20 13:50 Potassium 3.5 mmol/L (3.5-5.1) 08/14/20 13:50 Chloride 91 mmol/L (98-107) L 08/14/20 13:50 Carbon Dioxide 22 mmol/L (22-29) 08/14/20 13:50 Anion Gap 18.5 (5-19) 08/14/20 13:50 BUN 26 mg/dL (6-20) H 08/14/20 13:50 Creatinine 4.0 mg/dL (0.5-0.9) H 08/14/20 13:50 GFR Calculation 11.6 mL/min (90-130) L 08/14/20 13:50 Glucose 197 mg/dL (65-115) H 08/14/20 13:50 POC Glucose 194 mg/dL (70-110) H 08/14/20 16:52 Calculated Osmolality 276 mOsm/kg (285-295) L 08/14/20 13:50 Lactic Acid 3.9 mmol/L (0.5-2.2) H 08/14/20 09:26 Lactic Acid (Sepsis) Cancelled 08/14/20 13:50 Lactate 2.6 mmol/L (0.5-2.2) H 08/14/20 15:06 Calcium 9.2 mg/dL (8.5-10.5) 08/14/20 13:50 Magnesium 1.2 mg/dL (1.7-2.3) L 08/14/20 09:26 Total Bilirubin 0.7 mg/dL (0.15-1.2) 08/14/20 09:26 AST 7 U/L (0-32) 08/14/20 09:26 ALT 7 U/L (0-33) 08/14/20 09:26 Alkaline Phosphatase 95 IU/L (35-105) 08/14/20 09:26 Creatine Kinase 23 U/L (26-192) L 08/14/20 09:26 Troponin T Baseline 131 ng/L (0-10) H* 08/14/20 09:26 Troponin T 120 Minute 122.8 ng/L (0-10) H 08/14/20 13:50 Delta Troponin T -8.2 ABS# (0-10) L 08/14/20 13:50 Troponin T Hi Sens 6Hr 125.8 ng/L (0-10) H 08/14/20 15:06 Troponin T Hi Sens 6Hr Delta -5.2 ng/L (0-12) L 08/14/20 15:06 Total Protein 6.3 g/dL (6.6-8.7) L 08/14/20 09:26 Albumin 3.2 g/dL (3.5-5.2) L 08/14/20 09:26 Globulin 3.1 g/dL (1.3-4.6) 08/14/20 09:26 Lipase 27 U/L (13-60) 08/14/20 09:26 Urine Color Straw (Yellow) 08/14/20 10:30 Urine Appearance Clear (CLEAR) 08/14/20 10:30 Urine pH 8 (5-7) H 08/14/20 10:30 Ur Specific [place] 1.010 (1.005-1.030) 08/14/20 10:30 Urine Protein 2+ (Negative) H 08/14/20 10:30 Urine Glucose (UA) 4+ (Normal) H 08/14/20 10:30 Urine Ketones Negative (Negative) 08/14/20 10:30 Urine Blood 2+ (Negative) H 08/14/20 10:30 Urine Nitrate Negative (Negative) 08/14/20 10:30 Urine Bilirubin Neg (Negative) 08/14/20 10:30 Prot Sulfosalicylic Acd Negative (Negative) 08/14/20 10:30 Urine Urobilinogen Norm mg/dL (Negative) 08/14/20 10:30 Ur Leukocyte Esterase Negative (Negative) 08/14/20 10:30 Urine RBC 0-4 /hpf (0-2) H 08/14/20 10:30 Urine WBC 0-4 /hpf (0-5) H 08/14/20 10:30 Ur Squamous Epith Cells 0-4 /hpf (0-5) H 08/14/20 10:30 Amorphous Sediment Not Reportable 08/14/20 10:30 Urine Bacteria Trace /hpf (NONE) 08/14/20 10:30 Serum Ketones Negative (Negative) 08/14/20 09:26 Impressions Abdomen/Pelvis CT 08/14/20 08:55 IMPRESSION: 1. Previously described diverticulitis has resolved since July 17, 2020. 2. Stable peritoneal dialysis catheter with mild ascites is unchanged. 3. Stable fat-containing umbilical hernia with a small amount of associated fluid. No herniated bowel. 4. Small esophageal hiatal hernia. 5. Mild diffuse fatty infiltration of the liver. 6. No other significant changes from previous. Chest X-Ray 08/14/20 08:55 Impression: Negative chest. A&P Assessment and plan (1) Diabetes mellitus: Patient presented today with uncontrolled hyper glycemia, blood sugar at 550, initially had anion gap of 21, received 10 units of regular insulin in the ER after which most recent blood sugar is at 194, anion gap is closed. Ad[facility] to [facility] for subsequent management. Continue high-dose insulin sliding scale Diabetic diet Status: Acute Qualifiers: Diabetes mellitus type: type 2 Diabetes mellitus long term care pharmacist insulin use: with long term care pharmacist use Diabetes mellitus complication status: with kidney complications Diabetes mellitus complication detail: with chronic kidney disease Chronic kidney disease stage: on chronic dialysis Qualified Code(s): E11.22 - Type 2 diabetes mellitus with diabetic chronic kidney disease; N18.6 - End stage renal disease; Z79.4 - roasterman (current) use of insulin; Z99.2 - Dependence on renal dialysis (2) Gastroparesis due to DM: Patient known to have gastroparesis with complaints of nausea vomiting frequently, Reglan seems to have been effective recently. We will continue same for now Clear diet for now, advance as tolerated Recent history significant for Acinetobacter bacteremia, likely as a result of diverticulitis which was seen on recent CT from July. CAT scan today with resolved diverticulitis, no acute intra-abdominal issues noted. Check peritoneal fluid analysis and culture to evaluate for SBP given tenderness on exam. Status: Chronic (3) Major depression, recurrent: Status: Chronic Qualifiers: Active/Remission status: currently active Major depression episode severity: severe Psychotic features: without psychotic features Qualified Code(s): F33.2 - Major depressive disorder, recurrent severe without psychotic features Additional A&P Information End-stage renal disease on peritoneal dialysis, continue same, nephrology consult Elevated troponins in the range of 120s, serially negative delta's, less concerning for AMI, denies any chest pain, no acute ST-T wave changes. 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
[2020-08-14 19:07] LABS: Lactic Acid level (Lactate) 1.6 mmol/L (0.5-2.2)
[2020-08-14] MEDS: heparin 5,000 unit/mL INJ 1 mL 5000 UNIT SUBCUT (20:20)
[2020-08-14] MEDS: morphine 4 mg/mL SDV 1 mL 2 MG IVP (20:20)
[2020-08-14] MEDS: midodrine 5 mg TABLET PO (20:20)
[2020-08-14] MEDS: atorvastatin 40 mg Tablet PO (20:21)
[2020-08-14] MEDS: sevelamer 800 mg Tablet PO (20:21)
[2020-08-14 20:59] LABS: Glucose Point of Care 222 mg/dL (70-110)
[2020-08-14] MEDS: Dianeal low Ca w/2.5% dex 2,000 mL Bag 2000 ML INTRAPERIT (21:38)
[2020-08-14] MEDS: dorzolamide/timolol Op Soln 10 mL Btl 1 DROP EYE-LEFT (22:50)
[2020-08-15] VITALS (11 sets, daily range): BP systolic 92–128; BP diastolic 62–81; PULSE 69–85; RESP 16–18; TEMP 36.7–37.1; O2SAT 90–94
[2020-08-15] MEDS: ondansetron 2 mg/ML SDV 2 mL 4 MG IVP ×2 (00:33→13:52)
[2020-08-15] MEDS: Dianeal low Ca w/2.5% dex 2,000 mL Bag 2000 ML INTRAPERIT ×3 (04:04→15:03)
[2020-08-15 05:52] LABS: Alanine Aminotransferase 6 U/L (0-33); Albumin Level 2.4 g/dL (3.5-5.2); Alkaline Phosphatase 78 IU/L (35-105); Anion Gap 17.3 (5-19); Aspartate Amino Transferase 7 U/L (0-32); Blood Urea Nitrogen 28 mg/dL (6-20); Calcium 9.3 mg/dL (8.5-10.5); Carbon Dioxide 22 mmol/L (22-29); Chloride 93 mmol/L (98-107); Globulin 3.8 g/dL (1.3-4.6); Glomerular Filtration Rate 10.1 mL/min (90-130); Glucose 263 mg/dL (65-115); Osmolality Calculated 283 mOsm/kg (285-295); Potassium 3.3 mmol/L (3.5-5.1); Sodium 129 mmol/L (136-145); Total Bilirubin 0.5 mg/dL (0.15-1.2); Total Protein 6.2 g/dL (6.6-8.7)
[2020-08-15 06:18] LABS: Appearance, Peritoneal Fluid Clear (Clear); Color, Peritoneal Fluid Pale Yellow (Pale Yellow); Mononuclear #, Pertinoneal Fl 0.346 10^3/uL; Polynuclear # Cells, Perit 2.463 10^3/uL
[2020-08-15] MEDS: heparin 5,000 unit/mL INJ 1 mL 5000 UNIT SUBCUT ×2 (06:19→17:58)
[2020-08-15 06:20] LABS: Pathology Referral Yes; RBC Pertioneal Fluid 0 10^3/uL; WBC Peritoneal Fluid 2809 /uL
[2020-08-15 06:40] LABS: Glucose Point of Care 311 mg/dL (70-110)
[2020-08-15] MEDS: aspirin 81 mg Chew Tablet PO (08:00)
[2020-08-15] MEDS: midodrine 5 mg TABLET PO ×3 (08:00→20:57)
[2020-08-15] MEDS: levothyroxine 112 mcg Tablet 224 MCG PO (08:00)
[2020-08-15] MEDS: clopidogrel 75 mg Tablet PO (08:00)
[2020-08-15] MEDS: dorzolamide/timolol Op Soln 10 mL Btl 1 DROP EYE-LEFT ×2 (08:00→20:56)
[2020-08-15] MEDS: pantoprazole DR 40 mg Tablet PO (08:01)
[2020-08-15] MEDS: sevelamer 800 mg Tablet PO ×2 (08:01→15:02)
[2020-08-15 10:44] LABS: Glucose Point of Care 291 mg/dL (70-110)
--- NOTE | 2020-08-15 11:19 | P.PN_ITS ---
Subjective Subjective: Interval history: Persistent nausea today, currently tolerating her clear liquid diet, undergoing PD. Cell count from peritoneal fluid returned at 2800, consistent with PD peritonitis, Gram stain thus far with no organisms, WBC noted Medications: Reviewed: Yes Vitals/I&O/Wt Last Vital Signs Temp 98.4 F 08/15/20 11:12 Pulse 75 08/15/20 11:12 Resp 16 08/15/20 11:12 BP 108/73 08/15/20 11:12 Pulse Ox 92 08/15/20 11:12 08/14/20 08/15/20 08/15/20 22:59 06:59 14:59 Intake Total 60 / 3110 120 / 120 Output Total 0 / 0 100 / 100 25 / 25 Balance 60 / 3110 -100 / 3010 95 / 95 Weight last 48 hrs Weight 92.079 kg Weight 83.461 kg Physical Exam Narrative: EXAM NARRATIVE: GEN: Awake, alert and oriented, no acute distress CVS: S1S2 N RS: CTA B/L Abd: Soft, distended, tenderness to palpation epigastric region 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 ASSEMBLER: no focal neuro deficits Extremity right lower extremity amputation Data : 08/14/20 15:06 08/15/20 04:54 Micro: Microbiology 08/15/20 04:30 Gram Stain - Final Peritoneal Fluid 08/14/20 11:15 Blood Culture - Preliminary Blood SPECIMEN COLLECTED 08/14/20 11:15 Blood Culture - Preliminary Blood SPECIMEN COLLECTED A&P Assessment and plan (1) Peritonitis associated with peritoneal dialysis: cell count at 2800, Gram stain thus far negative, pending cultures from peritoneal fluid Overall picture consistent with PD peritonitis Started empiric cefepime 1 g IV every 24 renally dosed, cefepime chosen to provide additional coverage for previously noted Acinetobacter bacteremia. Cannot totally exclude peritonitis as being the underlying source for bacteremia in 07/2020 at that time. Per chart review it appears she was diagnosed with PD peritonitis additionally at [facility] in June of this year, requested to obtain documents and review cultures from that time. Patient has now agreed to transition to hemodialysis as has been recommended even on multiple prior admissions. Intraperitoneal vancomycin per nephrology recommendations. 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 Continue alternating Zofran and Reglan Status: Chronic (4) Major depression, recurrent: Status: Chronic Qualifiers: Active/Remission status: currently active Major depression episode severity: severe Psychotic features: without psychotic features Qualified Code(s): F33.2 - Major depressive disorder, recurrent severe without psychotic features Additional A&P Information End-stage renal disease on peritoneal dialysis, plan to transition to hemodialysis, removal of PD catheter, general surgery consulted. Hold Plavix Elevated troponins in the range of 120s, serially negative delta's, less concerning for AMI, denies any chest pain, no acute ST-T wave changes. 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
[2020-08-15] MEDS: morphine 4 mg/mL SDV 1 mL 2 MG IVP (13:57)
--- NOTE | 2020-08-15 15:07 | P.CONIM_ITS ---
Providers/Reason For Consult Consulting Physican/Specialty*: Ashleigh Scruggs DO, telenephrology Reason for Consult*: ESRD Attending Physician: Felicia Singh MD Primary Care Provider: Yovany Leonardo MD History of Present Illness History of Present Illness Rizwana Herzog is a 55 year old female recurrent admission for N/V, severe hypergylcemia. ESRD on PD. Has been taking levaquin Q48 hrs since discharge for acinetobacter bacteremia. Minimum po intake today, +n/V Meds/Allergies Home Medications and Allergies Home Medications Medication Instructions Recorded Confirmed Last Taken Type aspirin 81 mg PO DAILY@06/25/19 08/14/20 08/13/20 History multivitamin [Multiple Vitamins] 1 tab PO DAILY@06/30/19 08/14/20 08/13/20 History ferric citrate 210 mg iron tablet See Rx Instructions .ROUTE 09/06/19 08/14/20 08/13/20 History .COMPLEX tab coenzyme Q10 [CoQ-10] 100 mg PO DAILY@01/17/20 08/14/20 08/13/20 History omega 9-tgb-rae-fish oil [Fish Oil] 1 cap PO BID@01/17/20 08/14/20 08/13/20 History brimonidine 1 drp OPHTHALMIC (EYE) BID@01/31/20 08/14/20 08/13/20 History dorzolamide-timolol 1 drp OPHTHALMIC (EYE) BID@01/31/20 08/14/20 08/13/20 History pantoprazole 40 mg PO DAILY@02/16/20 08/14/20 08/13/20 History nitroglycerin 0.4 mg sublingual 0.4 mg SUBLINGUAL Q5M PRN #25 tab 03/26/20 08/14/20 04/18/20 Rx tablet Rocklatan 1 drp OPHTHALMIC (EYE) DAILY@04/18/20 08/14/20 08/13/20 History sennosides-docusate sodium 2 tab PO BID PRN 04/18/20 08/14/20 04/28/20 History sevelamer carbonate 800 mg PO TID 04/29/20 08/14/20 08/13/20 History atorvastatin 40 mg PO DAILY@05/14/20 08/14/2021 History cholecalciferol (vitamin D3) 25 mcg PO DAILY@08 05/14/20 08/14/20 08/13/20 History [Vitamin D3] paricalcitol 1 mcg capsule 1 mcg PO DAILY cap 05/22/20 08/14/20 08/13/20 History insulin glargine 100 unit/mL (3 50 unit SUBCUT BID@ #15 ml 06/17/20 08/14/20 08/13/20 Rx mL) subcutaneous pen levothyroxine 224 mcg PO DAILY@0800 07/10/20 08/14/20 08/13/20 History midodrine 5 mg PO TID@07/10/20 08/14/20 08/13/20 History potassium chloride 10 meq PO DAILY@07/10/20 08/14/20 08/13/20 History levofloxacin 250 mg PO Q48H 28 Days #14 tab 07/21/20 08/14/20 08/13/20 Rx metoclopramide HCl [Reglan] 5 mg PO DAILY #30 tab 07/21/20 08/14/20 08/13/20 Rx clopidogrel 75 mg tablet 75 mg PO DAILY@08 #90 tab 08/08/20 08/14/20 08/13/20 Rx Allergies Allergy/AdvReac Type Severity Reaction Status Date / Time metformin [From Glucophage] Allergy Severe Unknown Verified 08/08/20 10:51 venlafaxine [From Effexor] Allergy Severe ADR-Shakine Verified 08/08/20 10:51 ss Current Medications Current Medications Generic Name Dose Route Start Last Admin Trade Name Laurence PRN Reason Stop Dose Admin Aspirin 81 mg 08/15/20 08:00 08/15/20 08:00 Aspirin 81 Mg Chew Tablet PO 81 mg DAILY@08 JERSON Administration Atorvastatin Calcium 40 mg 08/14/20 20:00 08/14/20 20:21 Atorvastatin 40 Mg Tablet PO 40 mg DAILY@20 JERSON Administration Clopidogrel Bisulfate 75 mg 08/15/20 08:00 08/15/20 08:00 Clopidogrel 75 Mg Tablet PO 75 mg DAILY@08 JERSON Administration Dorzolamide/Timolol 1 drop 08/14/20 20:00 08/15/20 08:00 Dorzolamide/Timolol Op Soln 10 Ml Btl EYE-LEFT 1 drop BID@08, JERSON Administration Heparin Sodium (Beef Lung) 5,000 unit 08/14/20 18:45 08/15/20 06:19 Heparin 5,000 Unit/Ml Inj 1 Ml SUBCUT 5,000 unit Q12H JERSON Administration Insulin Aspart 0 unit 08/14/20 21:00 08/15/20 11:11 Insulin Aspart 100 Unit/1 Ml SUBCUT 10 unit WM&BEDTIME JERSON Administration Protocol Levothyroxine Sodium 224 mcg 08/15/20 08:00 08/15/20 08:00 Levothyroxine 112 Mcg Tablet PO 224 mcg DAILY@0800 [facility] Administration Midodrine 5 mg 08/14/20 20:00 08/15/20 11:11 Midodrine 5 Mg Tablet PO 5 mg TID@ [facility] Administration Morphine Sulfate 2 mg 08/14/20 14:43 08/15/20 13:57 Morphine 4 Mg/Ml Sdv 1 Ml IVP 2 mg Q4H PRN Administration SEVERE PAIN Non-Formulary Medication 1 drop 08/14/20 20:00 08/14/20 22:49 Netarsudil-Latanoprost [Rocklatan] OPHTHALMIC (EYE) Not Given DAILY@20 [facility] Ondansetron HCl 4 mg 08/14/20 14:43 08/15/20 13:52 Ondansetron 2 Mg/Ml Sdv 2 Ml IVP 4 mg Q6H PRN Administration NAUSEA AND VOMITING Pantoprazole Sodium 40 mg 08/15/20 08:00 08/15/20 08:[address] 40 Mg Tablet PO 40 mg DAILY@08 [facility] Administration Peritoneal Dialysis Solution 2,000 ml 08/15/20 03:45 08/15/20 15:03 Dianeal Low Ca W/2.5% Dex 2,000 Ml Bag INTRAPERIT 2,000 ml Q6H [facility]ERSON Administration Sevelamer Carbonate 800 mg 08/14/20 21:00 08/15/20 15:02 Sevelamer 800 Mg Tablet PO 800 mg TID JERSON Administration PFSH Acute PFSH: Medical History Anxiety BPPV (benign paroxysmal positional vertigo) CAD (coronary artery disease) Carotid stenosis Chronic diastolic CHF (congestive heart failure) Chronic left sacroiliac joint pain Claustrophobia Depression Diabetes Insulin-dependent End stage renal disease peritoneal dialysis ESBL (extended spectrum beta-lactamase) producing bacteria infection ESRD (end stage renal disease) Gastroparesis GERD (gastroesophageal reflux disease) HTN (hypertension) Hyperlipidemia Hypothyroidism Insulin dependent diabetes mellitus DOROTEO on CPAP Partial nontraumatic amputation of left foot (~06/2019) Peripheral vascular disease Phantom pain Suicidal ideation TIA (transient ischemic attack) Vitamin D deficiency Surgical History H/O hysterectomy with oophorectomy History of appendectomy History of heart artery stent History of hysterectomy History of left heart catheterization History of right below knee amputation Peritoneal dialysis catheter in place S/P cholecystectomy S/P PICC central line placement Status post amputation of toe Family History Denies family history of CAD (coronary artery disease) Clotting disorder Dementia Bleeding disorder Social History Smoking and tobacco status: never smoked Alcohol intake: never Household members: spouse and family History of recent travel: No Vitals/I&O/Wt Last Vital Signs Temp 98.4 F 08/15/20 11:12 Pulse 75 08/15/20 11:12 Resp 17 08/15/20 13:57 BP 108/73 08/15/20 11:12 Pulse Ox 92 08/15/20 11:12 08/15/20 08/15/20 08/15/20 06:59 14:59 22:59 Intake Total 240 / 240 Output Total 100 / 100 25 / 25 Balance -100 / 3010 215 / 215 Weight last 48 hrs Weight 92.079 kg Weight 83.461 kg Data Labs: Other Labs: Mg 1.2, albumin 2.4 PD fluid 2809 WBC, 87% neutrophils Micro: Micro: Microbiology 08/14/20 11:15 Blood Culture - Pr eliminary Blood NEGATIVE TO IVONE E 08/14/20 11:15 Blood Culture - Pr eliminary Blood NEGATIVE TO IVONE E 08/15/20 04:30 Gram Stain - Final Peritoneal Fluid Imaging^: CT Abd/Pel: Radiologist's impression: 1. Previously described diverticulitis has resolved since July 17, 2020. 2. Stable peritoneal dialysis catheter with mild ascites is unchanged. 3. Stable fat-containing umbilical hernia with a small amount of associated fluid. No herniated bowel. 4. Small esophageal hiatal hernia. 5. Mild diffuse fatty infiltration of the liver. 6. No other significant changes from previous. ABG^: ABG Interpretation 1: 7. RA A&P Additional A&P Information 1. ESRD on peritoneal dialysis, not doing well. + recurrent peritonitis. PD may be worsening gastroparesis. Nutrition is poor. Diabetes is not controlled. 2. Peritonitis, recent acenetobacter bacteremia 3. Anemia 4. Hypokalemia, hypomagnesemia, hyponatremia Recommendation: I had a long discussion with Rizwana. She is agreeable to trying a couple of weeks of hemodialysis to see if she feels better. Please consult surgery to place HD catheter. IP antibiotics ordered pending culture results. PD will be continued until HD started. Replace KCl and Mg IV. stop phosphate binder. SQ procrit. Discussed with Dr George Coding Level of Care Code Acute Synthetic Cloth Binding Cutter for g Sampson
[2020-08-15 16:46] LABS: Glucose Point of Care 234 mg/dL (70-110)
--- NOTE | 2020-08-15 16:57 | PM.CONSULT ---
Providers/Reason For Consult Consulting Physican/Specialty*: Ifeanyi Still MD Reason for Consult*: Need for hemodialysis catheter placement and explantation of PD catheter Attending Physician: Felicia Singh MD Primary Care Provider: Yovany Leonardo MD History of Present Illness History of Present Illness Ms. Rizwana Herzog is a pleasant 55 year old female with multiple medical comorbidities in the form of end-stage renal disease on peritoneal dialysis, diabetes mellitus type 2, gastroparesis patient has been having ongoing nausea and vomiting. Patient has a PD catheter placed about 4 years ago and was reported that the patient has Acinetobacter bacteremia on 07/17/2020. Has been an ongoing discussion with her nephrology service about transition to hemodialysis instead of peritoneal dialysis which she receives every night at home. Patient is admitted on the hospitalist service for further care and continue to receive peritoneal dialysis in the hospital every evening. CT scan of the abdomen pelvis 08/14/2020 1. Previously described diverticulitis has resolved since July 17, 2020. 2. Stable peritoneal dialysis catheter with mild ascites is unchanged. 3. Stable fat-containing umbilical hernia with a small amount of associated fluid. No herniated bowel. 4. Small esophageal hiatal hernia. 5. Mild diffuse fatty infiltration of the liver. 6. No other significant changes from previous. General surgery was consulted for potential explantation of PD catheter and placement of tunneled hemodialysis catheter. Review of Systems General: Reports: 10 or more systems reviewed and unremarkable except in HPI and below Meds/Allergies Home Medications and Allergies Home Medications Medication Instructions Recorded Confirmed Last Taken Type aspirin 81 mg PO DAILY@06/25/19 08/14/20 08/13/20 History multivitamin [Multiple Vitamins] 1 tab PO DAILY@06/30/19 08/14/20 08/13/20 History ferric citrate 210 mg iron tablet See Rx Instructions .ROUTE 09/06/19 08/14/20 08/13/20 History .COMPLEX tab coenzyme Q10 [CoQ-10] 100 mg PO DAILY@01/17/20 08/14/20 08/13/20 History omega 0-cmi-mru-fish oil [Fish Oil] 1 cap PO BID@01/17/20 08/14/20 08/13/20 History brimonidine 1 drp OPHTHALMIC (EYE) BID@01/31/20 08/14/20 08/13/20 History dorzolamide-timolol 1 drp OPHTHALMIC (EYE) BID@01/31/20 08/14/20 08/13/20 History pantoprazole 40 mg PO DAILY@02/16/20 08/14/20 08/13/20 History nitroglycerin 0.4 mg sublingual 0.4 mg SUBLINGUAL Q5M PRN #25 tab 03/26/20 08/14/20 04/18/20 Rx tablet Rocklatan 1 drp OPHTHALMIC (EYE) DAILY@04/18/20 08/14/20 08/13/20 History sennosides-docusate sodium 2 tab PO BID PRN 04/18/20 08/14/20 04/28/20 History sevelamer carbonate 800 mg PO TID 04/29/20 08/14/20 08/13/20 History atorvastatin 40 mg PO DAILY@05/14/20 08/14/20 08/13/20 History cholecalciferol (vitamin D3) 25 mcg PO DAILY@05/14/20 08/14/20 08/13/20 History [Vitamin D3] paricalcitol 1 mcg capsule 1 mcg PO DAILY cap 05/22/20 08/14/20 08/13/20 History insulin glargine 100 unit/mL (3 50 unit SUBCUT BID@ #15 ml 06/17/20 08/14/20 08/13/20 Rx mL) subcutaneous pen levothyroxine 224 mcg PO DAILY@0800 07/10/20 08/14/20 08/13/20 History midodrine 5 mg PO TID@07/10/20 08/14/20 08/13/20 History potassium chloride 10 meq PO DAILY@08 07/10/20 08/14/20 08/13/20 History levofloxacin 250 mg PO Q48H 28 Days #14 tab 07/21/20 08/14/20 08/13/20 Rx metoclopramide HCl [Reglan] 5 mg PO DAILY #30 tab 07/21/20 08/14/20 08/13/20 Rx clopidogrel 75 mg tablet 75 mg PO DAILY@08 #90 tab 08/08/20 08/14/20 08/13/20 Rx Allergies Allergy/AdvReac Type Severity Reaction Status Date / Time metformin [From Glucophage] Allergy Severe Unknown Verified 08/08/20 10:51 venlafaxine [From Effexor] Allergy Severe ADR-Shakine Verified 08/08/20 10:51 Current Medications Current Medications Generic Name Dose Route Start Last Admin Trade Name Freq PRN Reason Stop Dose Admin Aspirin 81 mg 08/15/20 08:00 08/15/20 08:00 Aspirin 81 Mg Chew Tablet PO 81 mg DAILY@08 [facility] Administration Atorvastatin Calcium 40 mg 08/14/20 20:00 08/14/20 20:21 Atorvastatin 40 Mg Tablet PO 40 mg DAILY@20 [facility]ERSON Administration Clopidogrel Bisulfate 75 mg 08/15/20 08:00 08/15/20 08:00 Clopidogrel 75 Mg Tablet PO 75 mg DAILY@08 [facility] Administration Dorzolamide/Timolol 1 drop 08/14/20 20:00 08/15/20 08:00 Dorzolamide/Timolol Op Soln 10 Ml Btl EYE-LEFT 1 drop BID@ [facility] Administration Heparin Sodium (Beef Lung) 5,000 unit 08/14/20 18:45 08/15/20 06:19 Heparin 5,000 Unit/Ml Inj 1 Ml SUBCUT 5,000 unit Q12H [facility]ERSON Administration Insulin Aspart 0 unit 08/14/20 21:00 08/15/20 11:11 Insulin Aspart 100 Unit/1 Ml SUBCUT 10 unit WM&BEDTIME [facility] Administration Protocol Levothyroxine Sodium 224 mcg 08/15/20 08:00 08/15/20 08:00 Levothyroxine 112 Mcg Tablet PO 224 mcg DAILY@0800 [facility] Administration Midodrine 5 mg 08/14/20 20:00 08/15/20 11:11 Midodrine 5 Mg Tablet PO 5 mg TID@ [facility] Administration Morphine Sulfate 2 mg 08/14/20 14:43 08/15/20 13:57 Morphine 4 Mg/Ml Sdv 1 Ml IVP 2 mg Q4H PRN Administration SEVERE PAIN Non-Formulary Medication 1 drop 08/14/20 20:00 08/14/20 22:49 Netarsudil-Latanoprost [Rocklatan] OPHTHALMIC (EYE) Not Given DAILY@20 [facility] Ondansetron HCl 4 mg 08/14/20 14:43 08/15/20 13:52 Ondansetron 2 Mg/Ml Sdv 2 Ml IVP 4 mg Q6H PRN Administration NAUSEA AND VOMITING Pantoprazole Sodium 40 mg 08/15/20 08:00 08/15/20 08:[address] 40 Mg Tablet PO 40 mg DAILY@08 [facility] Administration Peritoneal Dialysis Solution 2,000 ml 08/15/20 03:45 08/15/20 15:03 Dianeal Low Ca W/2.5% Dex 2,000 Ml Bag INTRAPERIT 2,000 ml Q6H [facility] Administration PFSH Acute PFSH: Medical History Anxiety BPPV (benign paroxysmal positional vertigo) CAD (coronary artery disease) Carotid stenosis Chronic diastolic CHF (congestive heart failure) Chronic left sacroiliac joint pain Claustrophobia Depression Diabetes Insulin-dependent End stage renal disease peritoneal dialysis ESBL (extended spectrum beta-lactamase) producing bacteria infection ESRD (end stage renal disease) Gastroparesis GERD (gastroesophageal reflux disease) HTN (hypertension) Hyperlipidemia Hypothyroidism Insulin dependent diabetes mellitus DOROTEO on CPAP Partial nontraumatic amputation of left foot (~06/2019) Peripheral vascular disease Phantom pain Suicidal ideation TIA (transient ischemic attack) Vitamin D deficiency Surgical History H/O hysterectomy with oophorectomy History of appendectomy History of heart artery stent History of hysterectomy History of left heart catheterization History of right below knee amputation Peritoneal dialysis catheter in place S/P cholecystectomy S/P PICC central line placement Status post amputation of toe Family History Denies family history of CAD (coronary artery disease) Clotting disorder Dementia Bleeding disorder Social History Smoking and tobacco status: never smoked Alcohol intake: never Household members: spouse and family History of recent travel: No Vitals/I&O/Wt Last Vital Signs Temp 98.4 F 08/15/20 15:33 Pulse 72 08/15/20 15:33 Resp 18 08/15/20 15:33 BP 95/62 08/15/20 15:33 Pulse Ox 91 08/15/20 15:33 08/15/20 08/15/20 08/15/20 06:59 14:59 22:59 Intake Total 240 / 240 Output Total 100 / 100 25 / 25 Balance -100 / 3010 215 / 215 Weight last 48 hrs Weight 203 lb Weight 184 lb Physical Exam Narrative: EXAM NARRATIVE: Patient is conscious alert oriented X3 BMI 34 Head and neck examination PERRLA no masses no cervical lymphadenopathy no jaundice Cardiac examination audible S1-S2 no murmurs no gallops no arrhythmias Chest is clear bilateral,abscence of Rhonchi or wheezes,no surgical emphysema Abdomen nontender nondistended soft no organomegaly guarding or rigidity/no signs of peritonitis Left upper quadrant PD catheter in place without complication. Right below the knee amputation stump Data Micro: Micro: Microbiology 08/14/20 11:15 Blood Culture - Pr eliminary Blood NEGATIVE TO IVONE E 08/14/20 11:15 Blood Culture - Pr eliminary Blood NEGATIVE TO IVONE E 08/15/20 04:30 Gram Stain - Final Peritoneal Fluid A&P Assessment and plan (1) End stage renal disease: After history taking physical examination and reviewing the chart and images with my personal interpretation of the CT scan of the abdomen and pelvis. And will plan to coordinate further with the nephrology and hospitalist service for potential placement of hemodialysis catheter and explantation of peritoneal dialysis catheter at the same time. Highly recommend to hold Plavix prior to surgery Assurance and education All questions have been answered and all concerns have been addressed to patient's satisfaction. Thank you for consulting general surgery to participate taking care Mino Status: Acute Consult Attestations Medical Necessity Statement: Ongoing inpatient hospitalization for medical care and preparation for hemodialysis catheter placement and explantation of PD catheter Time Spent in Patient Care: 16 - 35 minutes (>than 50% of time spent in counselling and/or direct pt care on unit). Coding Level of Care Code Acute Motorcycle Fabricator for Maris Braden Diagnoses End stage renal disease N18.6
[2020-08-15] MEDS: magnesium sulfate premix 2 GM/50 ML PIGGYBACK IV (17:56)
[2020-08-15] MEDS: potassium chloride premix 100 ML 25 MEQ IV (17:56)
[2020-08-15] MEDS: cefepime 1,000 MG in sodium chloride 0.9% (plus) 50 ML 100 MG IV (17:57)
[2020-08-15] MEDS: atorvastatin 40 mg Tablet PO (20:57)
[2020-08-15 21:04] LABS: Glucose Point of Care 141 mg/dL (70-110)
[2020-08-16] VITALS (7 sets, daily range): BP systolic 84–128; BP diastolic 57–76; PULSE 59–73; RESP 15–18; TEMP 36.6–37.1; O2SAT 89–96
[2020-08-16] MEDS: Dianeal low Ca w/2.5% dex 2,000 mL Bag 2000 ML INTRAPERIT ×4 (04:23→22:01)
[2020-08-16] MEDS: ondansetron 2 mg/ML SDV 2 mL 4 MG IVP (05:32)
[2020-08-16 06:14] LABS: Basophils % 0.4 %; Eosinophils # 0.3 10^3/uL (0.0-0.8); Eosinophils % 4.8 %; Hematocrit 30.1 % (37.0-47.0); Hemoglobin 9.9 g/dL (11.5-15.3); Lymphocytes # 0.7 10^3/uL (0.8-4.8); Lymphocytes % 12.8 %; Mean Corpuscular HGB Conc 32.9 g/dL (30.0-36.0); Mean Corpuscular Hemoglobin 32.2 pg (28.0-34.0); Mean Platelet Volume 11.9 fL (7.4-10.4); Monocytes # 0.4 10^3/uL (0.2-0.9); Monocytes % 6.5 %; Neutrophils # 4.03 10^3/uL (1.8-7.7); Neutrophils % 74.8 %; Nucleated Red Blood Cells % 0 %; Platelet Count 221 10^3/cmm (130-400); Red Blood Count 3.07 10^6/uL (4.1-5.3); White Blood Count 5.4 10^3/uL (4.0-10.0)
[2020-08-16 06:15] LABS: Alanine Aminotransferase 6 U/L (0-33); Albumin Level 2.1 g/dL (3.5-5.2); Alkaline Phosphatase 76 IU/L (35-105); Blood Urea Nitrogen 26 mg/dL (6-20); Calcium 9.2 mg/dL (8.5-10.5); Carbon Dioxide 23 mmol/L (22-29); Chloride 91 mmol/L (98-107); Globulin 3.9 g/dL (1.3-4.6); Glomerular Filtration Rate 8.8 mL/min (90-130); Glucose 194 mg/dL (65-115); Osmolality Calculated 276 mOsm/kg (285-295); Sodium 128 mmol/L (136-145); Total Bilirubin 0.5 mg/dL (0.15-1.2)
[2020-08-16] MEDS: heparin 5,000 unit/mL INJ 1 mL 5000 UNIT SUBCUT ×2 (06:22→17:45)
[2020-08-16 06:24] LABS: Anion Gap 17.5 (5-19); Aspartate Amino Transferase 10 U/L (0-32); Potassium 3.5 mmol/L (3.5-5.1)
[2020-08-16 06:31] LABS: Phosphorus 3.6 mg/dL (2.5-4.5)
[2020-08-16 06:38] LABS: Glucose Point of Care 247 mg/dL (70-110)
[2020-08-16] MEDS: pantoprazole DR 40 mg Tablet PO (08:57)
[2020-08-16] MEDS: levothyroxine 112 mcg Tablet 224 MCG PO (08:57)
[2020-08-16] MEDS: dorzolamide/timolol Op Soln 10 mL Btl 1 DROP EYE-LEFT ×2 (08:57→21:59)
[2020-08-16] MEDS: aspirin 81 mg Chew Tablet PO (08:57)
[2020-08-16] MEDS: midodrine 5 mg TABLET PO ×3 (08:57→21:59)
[2020-08-16 11:32] LABS: Glucose Point of Care 238 mg/dL (70-110)
--- NOTE | 2020-08-16 13:53 | P.PN_ITS ---
Subjective Subjective: Interval history: minimal oral intake; develops nausea and vomiting when she tries to eat or drink, normal BM PD fluid light yellow, not UFing - I=O with PD Medications: Reviewed: Yes Vitals/I&O/Wt Last Vital Signs Temp 97.8 F 08/16/20 11:38 Pulse 62 08/16/20 11:38 Resp 18 08/16/20 11:38 BP 105/69 08/16/20 11:38 Pulse Ox 95 08/16/20 11:38 08/15/20 08/16/20 08/16/20 22:59 06:59 14:59 Intake Total 200 / 440 2000 / 2440 2340 / 2340 Output Total 100 / 125 1900 / 1900 Balance 200 / 415 1900 / 2315 440 / 440 Weight last 48 hrs Weight 92.079 kg Weight 92.079 kg Physical Exam Const: COMMON NORMALS: no acute distress NUTRITIONAL APPEARANCE: obese Extremity: GENERAL: Yes edema (trace) Data : 08/16/20 06:04 08/16/20 05:16 Micro: Microbiology 08/14/20 11:15 Blood Culture - Preliminary Blood NEGATIVE TO DATE 08/14/20 11:15 Blood Culture - Preliminary Blood NEGATIVE TO DATE 08/15/20 04:30 Gram Stain - Final Peritoneal Fluid A&P Additional A&P Information 1. ESRD on peritoneal dialysis, not doing well. + recurrent peritonitis. PD may be worsening gastroparesis. Nutrition is poor. Diabetes is not controlled. 2. Peritonitis, recent acenetobacter bacteremia, received IP vanco and ceftriaxone yesterday; on IV cefipime 3. Anemia, received procrit yesterday 4. Hypokalemia, hypomagnesemia, hyponatremia Recommend: Repeat PD fluid cell count (culture pending), redose mag and K. Place tunneled HD catheter after plavix held (discussed with Dr White) and begin HD. Rizwana is agreeable. Call placed to her limerock tower loader Dr Timi Florence. Will leave PD catheter in place for now. Attestations Medical Necessity Statement*: unable to eat or drink Time Spent in Patient Care: Greater than 35 minutes Coding Level of Care Code Acute Chinese Instructor for Chg Fwd Exam Expanded Problem Focused
--- NOTE | 2020-08-16 14:15 | PC.CHAP ---
Pastoral Care Encounter/Spiritual Assessment Type of Contact [] Declined child development professor visit [] Patient/Family/Request visit [] Outpatient visit [] Follow-up visit [] Physician referral [] Code/Alert [] Routine visit [] Staff referral [] Actively dying [xx] Patient sleeping [] Family support [] [] Out of room [] Palliative care [] [] Receiving care in room [] Pre-surgical visit [] Trauma [] Long length of stay [] ICU visit [] Other: Relational/Emotional Strength [] Patient feels connected with others/family/visitors/staff [] Distress [] Loneliness/isolation [] Abandonment Spirituality of Patient [] Person of Talya [] Attends Druze of their Talya [] Believes in Prayer [] Reads Bible or Restoration materials [] There are Spiritual issues to be addressed Resident Intern Interventions [] Prayer [] Active listening [] Non-anxious presence [] Spiritual/emotional support [] Crisis/trauma care [] Spiritual counseling [] Bereavement support [] Provided bereavement packet [] Provided Bible/devotional materials [] Provided toy/stuffed animal, coloring book to patient or family member [] Provided Communion [] Anointing/[place] [] Salvation [] Completed spiritual assessment [] Other: Impact on Illness or Injury [] Angry [] Fearful [] Anxious [] Often cries [] Exhaustion [] Unable to work [] Unable to attend sikhism [] Unable to walk/stand [] Unable to read [] Unable to drive [] Unable to eat/drink [] Unable to sleep [] Unable to be with family [] Patient intubated [] Other: Summary Patient sedated. Follow up needed Time spent with patient
[2020-08-16] MEDS: magnesium sulfate premix 2 GM/50 ML PIGGYBACK IV (14:52)
[2020-08-16] MEDS: potassium chloride premix 100 ML 25 MEQ IV (14:52)
--- NOTE | 2020-08-16 16:00 | P.PN_ITS ---
Subjective Subjective: Interval history: Afberile, hemodynamically stable, no further vomiting, but nausea persisting Medications: Reviewed: Yes Vitals/I&O/Wt Last Vital Signs Temp 98.0 F 08/17/20 04:28 Pulse 57 L 08/17/20 04:28 Resp 16 08/17/20 04:28 BP 110/67 08/17/20 04:28 Pulse Ox 96 08/17/20 04:28 08/16/20 08/16/20 08/17/20 14:59 22:59 06:59 Intake Total 2460 / 2460 2236.250 / 4696.250 Output Total 1900 / 1900 2100 / 4000 Balance 560 / 560 136.250 / 696.250 Weight last 48 hrs Weight 92.079 kg Weight 92.079 kg Physical Exam Narrative: EXAM NARRATIVE: GEN: Awake, alert and oriented, no acute distress CVS: S1S2 N RS: CTA B/L Abd: Soft, distended, tenderness to palpation epigastric region ELECTRIC NEEDLE SPECIALIST: no focal neuro deficits Extremity right lower extremity amputation Data : 08/16/20 06:04 08/16/20 05:16 Micro: Microbiology 08/15/20 04:30 Gram Stain - Final Peritoneal Fluid Body Fluid Culture - Preliminary Coagulase negativ staphylococc A&P Assessment and plan (1) Peritonitis associated with peritoneal dialysis: cell count at 2800, Gram stain thus far negative, pending cultures from peritoneal fluid Overall picture consistent with PD peritonitis Currently on empiric cefepime 1 g IV every 24 renally dosed, cefepime chosen to provide additional coverage for previously noted Acinetobacter. Also on IP vancomycin Given that this is recurrent PD peritonitis (2nd confirmed episode, potentially 3rd given bacteremia from abdominal source in 07/2020) , recommend current PD catheter removal. Patient is agreeable to removal. HD catheter planned to be placed on 08/20 after having Plavix on hold x5d per surgery PD catheter to be removed after HD access obtained. Patient has been counselled to transition to hemodialysis on multiple prior admissions and also now, agreeable now to transition. She still hopes to go back to PD for the custodial at some point after discharge, however should this happen in the future, she will need a new PD catheter regardless. Status: Acute Qualifiers: Encounter type: initial encounter Qualified Code(s): T85.71XA - Infection and inflammatory reaction due to peritoneal dialysis catheter, initial encounter (2) Diabetes mellitus: Continue high-dose insulin sliding scale, improved fingersticks today Status: Acute Qualifiers: Diabetes mellitus type: type 2 Diabetes mellitus custodial insulin use: with sales audit clerk use Diabetes mellitus complication status: with kidney complications Diabetes mellitus complication detail: with chronic kidney disease Chronic kidney disease stage: on chronic dialysis Qualified Code(s): E11.22 - Type 2 diabetes mellitus with diabetic chronic kidney disease; N18.6 - End stage renal disease; Z79.4 - nurse examiner (current) use of insulin; Z99.2 - Dependence on renal dialysis (3) Gastroparesis due to DM: Patient known to have gastroparesis with complaints of nausea vomiting frequently This is currently poorly controlled. Continue alternating Zofran and Reglan Status: Chronic (4) Major depression, recurrent: Status: Chronic Qualifiers: Active/Remission status: currently active Major depression episode severity: severe Psychotic features: without psychotic features Qualified Code(s): F33.2 - Major depressive disorder, recurrent severe without psychotic features Additional A&P Information End-stage renal disease on peritoneal dialysis, plan to transition to hemodialysis, removal of PD catheter, general surgery consulted. Hold Plavix. Will attempt to coordinate placement of HD cath and removal of PD cath as close as possible to minimize interruption interval for Plavix. Last stent placement 04/2020 Elevated troponins in the range of 120s, serially negative delta's, less concerning for AMI, denies any chest pain, no acute ST-T wave changes. DVT prophylaxis Heparin Full code Attestations Medical Necessity Statement*: need for Iv and IP abx, removal of PD catheter, transition to hemodialysis Coding Level of Care Code Acute Auto Rental Clerk for [facility] Fwd Diagnoses Peritonitis associated with peritoneal dialysis T85.71XA Encounter type: initial encounter Diabetes mellitus E11.22; N18.6; Z79.4; Z99.2 Diabetes mellitus type: type 2 Diabetes mellitus sales audit clerk insulin use: with sales audit clerk use Diabetes mellitus complication status: with kidney complications Diabetes mellitus complication detail: with chronic kidney disease Chronic kidney disease stage: on chronic dialysis Gastroparesis due to DM E11.43; K31.84 Major depression, recurrent F33.2 Active/Remission status: currently active Major depression episode severity: severe Psychotic features: without psychotic features
[2020-08-16] MEDS: metoclopramide 5 mg/mL SDV 2 mL 10 MG IVP (16:35)
[2020-08-16 16:41] LABS: Mononuclear #, Pertinoneal Fl 0.143 10^3/uL; Polynuclear # Cells, Perit 0.209 10^3/uL
[2020-08-16 17:20] LABS: Glucose Point of Care 227 mg/dL (70-110)
[2020-08-16 20:12] LABS: Appearance, Peritoneal Fluid Hazy (Clear); Color, Peritoneal Fluid Pale Yellow (Pale Yellow)
[2020-08-16 20:13] LABS: RBC Pertioneal Fluid 0 10^3/uL; WBC Peritoneal Fluid 352 /uL
[2020-08-16 20:36] LABS: Glucose Point of Care 197 mg/dL (70-110)
[2020-08-16] MEDS: morphine 4 mg/mL SDV 1 mL 2 MG IVP (21:58)
[2020-08-16] MEDS: atorvastatin 40 mg Tablet PO (21:59)
[2020-08-16] MEDS: cefepime 1,000 MG in sodium chloride 0.9% (plus) 50 ML 100 MG IV (22:00)
[2020-08-17] VITALS (10 sets, daily range): BP systolic 106–127; BP diastolic 66–75; PULSE 57–72; RESP 16–19; TEMP 36.7–36.8; O2SAT 95–97
[2020-08-17] MEDS: Dianeal low Ca w/2.5% dex 2,000 mL Bag 2000 ML INTRAPERIT ×4 (04:00→22:16)
[2020-08-17] MEDS: heparin 5,000 unit/mL INJ 1 mL 5000 UNIT SUBCUT ×2 (06:32→18:31)
[2020-08-17 06:39] LABS: Glucose Point of Care 233 mg/dL (70-110)
[2020-08-17] MEDS: ondansetron 2 mg/ML SDV 2 mL 4 MG IVP ×2 (08:39→17:45)
--- NOTE | 2020-08-17 08:44 | PM.PN ---
Subjective Subjective: Interval history: abdominal pain started last evening. No BM since 08/15/20. Continues to have N/V RN reports PD fluid clear yellow, I=O Medications: Reviewed: Yes Vitals/I&O/Wt Last Vital Signs Temp 98.2 F 08/17/20 07:39 Pulse 59 L 08/17/20 07:39 Resp 19 H 08/17/20 07:41 BP 115/67 08/17/20 07:39 Pulse Ox 97 08/17/20 07:39 08/16/20 08/17/20 08/17/20 22:59 06:59 14:59 Intake Total 2236.250 / 4696.250 800 / 800 Output Total 2100 / 4000 10 / 4010 Balance 136.250 / 696.250 -10 / 686.250 800 / 800 Weight last 48 hrs Weight 92.079 kg Weight 92.079 kg Physical Exam Const: COMMON NORMALS: no acute distress GENERAL APPEARANCE: cooperative NUTRITIONAL APPEARANCE: obese Data : 08/17/20 10:00 08/17/20 10:00 Other Labs: PD WBC 352 albumin 1.9, calcium 8.8, phos 3.7, Mg 2.2 TSH 11.25 Micro: Microbiology 08/15/20 04:30 Gram Stain - Final Peritoneal Fluid Body Fluid Culture - Preliminary Coagulase negativ staphylococc A&P Additional A&P Information 1. ESRD on peritoneal dialysis, not doing well. + recurrent peritonitis. PD may be worsening gastroparesis. Nutrition is poor. Diabetes is not controlled. I spoke with [place]'s outpatient installer interior assemblies, Dr Timi Florence, yesterday. He is agreeable with plan to discontinue PD, remove PD catheter, start HD 2. Coag negative Staph Peritonitis, peritoneal WBC improved, received IP vanco 08/15/20, on IV cefipime. Vanco level pending. Will redose IP vanco when serum level < 15 3. Anemia, received procrit 08/15/20 4. Hypokalemia, hypomagnesemia, hyponatremia. Replace KCL IV 5. Abdominal pain. Probable constipation. Will give suppository. If no improvement, abdominal Xray 6. Hypothyroidism with elevated TSH. Plan to place tunneled HD catheter and remove PD catheter WednesdayAugust 20 (after plavix held). Rizwana is agreeable. Attestations Medical Necessity Statement*: see above Time Spent in Patient Care: Greater than 35 minutes Coding Level of Care Code Acute Mask Designer for Maris Braden
[2020-08-17] MEDS: levothyroxine 112 mcg Tablet 224 MCG PO (09:35)
[2020-08-17] MEDS: pantoprazole DR 40 mg Tablet PO (09:35)
[2020-08-17] MEDS: aspirin 81 mg Chew Tablet PO (09:35)
[2020-08-17] MEDS: midodrine 5 mg TABLET PO ×3 (09:35→20:48)
[2020-08-17] MEDS: dorzolamide/timolol Op Soln 10 mL Btl 1 DROP EYE-LEFT ×2 (09:36→20:48)
[2020-08-17 10:26] LABS: Basophils % 0.6 %; Eosinophils # 0.3 10^3/uL (0.0-0.8); Eosinophils % 6.2 %; Hematocrit 31.7 % (37.0-47.0); Hemoglobin 9.9 g/dL (11.5-15.3); Lymphocytes # 0.7 10^3/uL (0.8-4.8); Mean Corpuscular HGB Conc 31.2 g/dL (30.0-36.0); Mean Corpuscular Hemoglobin 32.4 pg (28.0-34.0); Mean Corpuscular Volume 103.6 fL (81-99); Mean Platelet Volume 11.8 fL (7.4-10.4); Monocytes # 0.4 10^3/uL (0.2-0.9); Neutrophils # 3.49 10^3/uL (1.8-7.7); Neutrophils % 69.8 %; Nucleated Red Blood Cells % 0 %; Platelet Count 220 10^3/cmm (130-400); Red Blood Count 3.06 10^6/uL (4.1-5.3)
[2020-08-17 10:35] LABS: Glucose Point of Care 304 mg/dL (70-110)
[2020-08-17 10:54] LABS: Alanine Aminotransferase < 5 U/L (0-33); Albumin Level 1.9 g/dL (3.5-5.2); Alkaline Phosphatase 77 IU/L (35-105); Anion Gap 16.5 (5-19); Aspartate Amino Transferase 8 U/L (0-32); Blood Urea Nitrogen 25 mg/dL (6-20); Calcium 8.8 mg/dL (8.5-10.5); Carbon Dioxide 24 mmol/L (22-29); Chloride 91 mmol/L (98-107); Globulin 3.7 g/dL (1.3-4.6); Glomerular Filtration Rate 8.8 mL/min (90-130); Glucose 249 mg/dL (65-115); Magnesium 2.2 mg/dL (1.7-2.3); Osmolality Calculated 279 mOsm/kg (285-295); Phosphorus 3.7 mg/dL (2.5-4.5); Potassium 3.5 mmol/L (3.5-5.1); Sodium 128 mmol/L (136-145); Thyroid Stimulating Hormone 11.25 uIU/mL (0.27-4.20); Total Bilirubin 0.3 mg/dL (0.15-1.2); Total Protein 5.6 g/dL (6.6-8.7)
--- NOTE | 2020-08-17 11:19 | DCPLANNER ---
Pg 2 of IM updated and reviewed with pt. No questions, copy provided.
[2020-08-17] MEDS: morphine 4 mg/mL SDV 1 mL 2 MG IVP (12:15)
[2020-08-17 12:23] LABS: Vancomycin Random 13.3 ug/mL (20.0-40.0)
[2020-08-17] MEDS: metoclopramide 5 mg/mL SDV 2 mL 10 MG IVP (14:42)
[2020-08-17] MEDS: lidocaine 1% INJ 20 mL 5 ML IV (14:43)
[2020-08-17] MEDS: potassium chloride premix 100 ML 25 MEQ IV (14:43)
[2020-08-17] MEDS: bisacodyl 10 mg Supp PR (14:44)
--- NOTE | 2020-08-17 16:33 | PM.PN ---
Subjective Subjective: Interval history: Patient is feeling weak Afebrile No nausea or vomiting. Continue to complain of abdominal pain Medications: Reviewed: Yes Vitals/I&O/Wt Last Vital Signs Temp 98.3 F 08/17/20 15:00 Pulse 61 08/17/20 15:00 Resp 18 08/17/20 15:00 BP 110/73 08/17/20 15:00 Pulse Ox 97 08/17/20 15:00 08/17/20 08/17/20 08/17/20 06:59 14:59 22:59 Intake Total 1020 / 1020 Output Total 4009 200 / 200 Balance -.250 820 / 820 Weight last 48 hrs Weight 92.079 kg Physical Exam Narrative: EXAM NARRATIVE: GEN: Awake, alert and oriented, no acute distress CVS: S1S2 N RS: CTA B/L Abd: Soft, distended, tenderness to palpation epigastric region CHARTER REPRESENTATIVE: no focal neuro deficits Extremity right lower extremity amputation Data : 08/17/20 10:00 08/17/20 10:00 Micro: Microbiology 08/15/20 04:30 Gram Stain - Final Peritoneal Fluid Body Fluid Culture - Preliminary Staphylococcus epidermidis A&P Assessment and plan (1) Peritonitis associated with peritoneal dialysis: - Continue cefepime 1 g IV q24hr - Follow up on culture results - Plan to change from PD to HD - Related to PD catheter - Prior culture noted. Status: Acute (2) Diabetes mellitus: Continue high-dose insulin sliding scale, improved fingersticks today Status: Acute (3) Gastroparesis due to DM: Patient known to have gastroparesis with complaints of nausea vomiting frequently This is currently poorly controlled. Continue alternating Zofran and Reglan - No change to above Status: Chronic (4) Major depression, recurrent: Status: Chronic Qualifiers: Active/Remission status: currently active Major depression episode severity: severe Psychotic features: without psychotic features Qualified Code(s): F33.2 - Major depressive disorder, recurrent severe without psychotic features Additional A&P Information End-stage renal disease on peritoneal dialysis, plan to transition to hemodialysis, removal of PD catheter, general surgery consulted. Hold Plavix. - Will attempt to coordinate placement of HD cath and removal of PD cath as close as possible to minimize interruption interval for Plavix. Last stent placement 04/2020 - Nephrology on board. - Dialysis per nephro - Monitoring lytes. Elevated troponins in the range of 120s, serially negative delta's, less concerning for AMI, denies any chest pain, no acute ST-T wave changes - May consider ECHO prior to discharge. - chest pain free. DVT prophylaxis Heparin Full code Attestations Medical Necessity Statement*: Will require further hospitalization for management of peritonitis req IV abx. Time Spent in Patient Care: Greater than 35 minutes (>than 50% of time spent in counselling and/or direct pt care on unit). Coding Level of Care Code Acute Speech And Hearing Clinic Director for g Fwd Diagnoses Peritonitis associated with peritoneal dialysis T85.71XA Diabetes mellitus E11.9 Gastroparesis due to DM E11.43; K31.84 Major depression, recurrent F33.2 Active/Remission status: currently active Major depression episode severity: severe Psychotic features: without psychotic features
[2020-08-17 16:43] LABS: Glucose Point of Care 159 mg/dL (70-110)
--- NOTE | 2020-08-17 19:55 | PC.NURSE ---
SHIFT SUMMARY PT HAS RECEIVED NAUSEA MEDICATIONS 3X THIS SHIFT, SHE HAS HAD PAIN TO ABDOMEN WELL, ONCE SHE REQUESTED PAIN MEDICATIONS SHE HAS HAD NO FURTHER COMPLAINTS AT THIS TIME. PT HAS NOT HAD A BM THIS SHIFT. SUPPOSITORY WAS GIVEN WITHOUT SUCCESSFUL BM.
[2020-08-17] MEDS: atorvastatin 40 mg Tablet PO (20:48)
[2020-08-17 20:58] LABS: Glucose Point of Care 177 mg/dL (70-110)
[2020-08-17] MEDS: cefepime 1,000 MG in sodium chloride 0.9% (plus) 50 ML 100 MG IV (22:10)
[2020-08-17] MEDS: vancomycin 1,000 MG SDV 1500 MG INTRAPERIT (22:17)
[2020-08-18] VITALS (8 sets, daily range): BP systolic 102–126; BP diastolic 65–83; PULSE 60–67; RESP 16–18; TEMP 36.6–37.3; O2SAT 97–98
[2020-08-18] MEDS: ondansetron 2 mg/ML SDV 2 mL 4 MG IVP ×2 (00:54→07:05)
[2020-08-18] MEDS: Dianeal low Ca w/2.5% dex 2,000 mL Bag 2000 ML INTRAPERIT ×4 (04:40→22:46)
[2020-08-18] MEDS: heparin 5,000 unit/mL INJ 1 mL 5000 UNIT SUBCUT ×2 (05:50→18:10)
[2020-08-18 06:54] LABS: Glucose Point of Care 231 mg/dL (70-110)
[2020-08-18] MEDS: morphine 4 mg/mL SDV 1 mL 2 MG IVP (07:07)
[2020-08-18 07:50] LABS: Basophils % 0.5 %; Eosinophils # 0.3 10^3/uL (0.0-0.8); Eosinophils % 5.6 %; Hematocrit 29.7 % (37.0-47.0); Hemoglobin 9.7 g/dL (11.5-15.3); Lymphocytes % 17.1 %; Mean Corpuscular HGB Conc 32.7 g/dL (30.0-36.0); Mean Corpuscular Hemoglobin 32.3 pg (28.0-34.0); Mean Platelet Volume 11.8 fL (7.4-10.4); Monocytes # 0.5 10^3/uL (0.2-0.9); Neutrophils # 3.81 10^3/uL (1.8-7.7); Neutrophils % 66.7 %; Nucleated Red Blood Cells % 0 %; Platelet Count 275 10^3/cmm (130-400); White Blood Count 5.7 10^3/uL (4.0-10.0)
[2020-08-18 08:11] LABS: Alanine Aminotransferase < 5 U/L (0-33); Albumin Level 2.2 g/dL (3.5-5.2); Alkaline Phosphatase 83 IU/L (35-105); Anion Gap 15.4 (5-19); Aspartate Amino Transferase 8 U/L (0-32); Blood Urea Nitrogen 25 mg/dL (6-20); Calcium 9.1 mg/dL (8.5-10.5); Carbon Dioxide 25 mmol/L (22-29); Chloride 92 mmol/L (98-107); Globulin 3.6 g/dL (1.3-4.6); Glucose 206 mg/dL (65-115); Osmolality Calculated 278 mOsm/kg (285-295); Potassium 3.4 mmol/L (3.5-5.1); Sodium 129 mmol/L (136-145); Total Bilirubin 0.3 mg/dL (0.15-1.2); Total Protein 5.8 g/dL (6.6-8.7)
--- NOTE | 2020-08-18 08:12 | PC.NURSE ---
Patient reports dizziness, vitals taken within normal limits, discussed calling nurse with call light prior to getting up for fall precautions, verbalized understanding.
[2020-08-18] MEDS: levothyroxine 112 mcg Tablet 224 MCG PO (08:22)
[2020-08-18] MEDS: pantoprazole DR 40 mg Tablet PO (08:22)
[2020-08-18] MEDS: midodrine 5 mg TABLET PO ×3 (08:22→21:45)
[2020-08-18] MEDS: dorzolamide/timolol Op Soln 10 mL Btl 1 DROP EYE-LEFT ×2 (08:22→21:51)
[2020-08-18] MEDS: aspirin 81 mg Chew Tablet PO (08:22)
[2020-08-18 08:32] LABS: Phosphorus 3.7 mg/dL (2.5-4.5)
--- NOTE | 2020-08-18 09:36 | PM.PN ---
Subjective Subjective: Interval history: had small loose stool after suppository yesterday. no bm today. + abdominal pain with movement, unable to eat. Per RN, PD fluid clear yellow Medications: Reviewed: Yes Medication Review Details: received second dose IP vancomycin yesterday Vitals/I&O/Wt Last Vital Signs Temp 98.4 F 08/18/20 08:00 Pulse 67 08/18/20 08:00 Resp 16 08/18/20 08:00 BP 105/72 08/18/20 08:00 Pulse Ox 97 08/18/20 08:00 08/17/20 08/18/20 08/18/20 21:59 06:59 14:59 Intake Total 0 / 0 Output Total Balance 0 / 0 PER RN PD I/O= Weight last 48 hrs Weight 92.079 kg Physical Exam Const: COMMON NORMALS: no acute distress GENERAL APPEARANCE: cooperative NUTRITIONAL APPEARANCE: obese Resp: COMMON NORMALS: normal respiratory effort and clear to auscultation bilaterally AUSCULTATION: clear to auscultation bilaterally Cardio: COMMON NORMALS: regular rate and regular rhythm RATE: regular rate RHYTHM: regular rhythm Extremity: GENERAL: No edema Data : 08/18/20 06:59 08/18/20 06:59 Other Labs: Ca 9.1, Phos 3.7, Mg 2.0, Alb 2.2, LFTs normal peritoneal fluid: MRSE Micro: Microbiology 08/15/20 04:30 Gram Stain - Final Peritoneal Fluid Body Fluid Culture - Preliminary Staphylococcus epidermidis CT Abd/Pel: Radiologist's impression: 08/14/20 1. Previously described diverticulitis has resolved since July 17, 2020. 2. Stable peritoneal dialysis catheter with mild ascites is unchanged. 3. Stable fat-containing umbilical hernia with a small amount of associated fluid. No herniated bowel. 4. Small esophageal hiatal hernia. 5. Mild diffuse fatty infiltration of the liver. 6. No other significant changes from previous. A&P Additional A&P Information 1. ESRD on peritoneal dialysis, not doing well. + recurrent peritonitis. PD may be worsening gastroparesis. Nutrition is poor. Diabetes is not controlled. plan to discontinue PD, remove PD catheter, start HD 08/20/20 2. MRSE Peritonitis, peritoneal WBC improved, received IP vanco 08/15/20 and 08/17/20 3. Anemia, stable, received procrit 08/15/20 4. Hypokalemia, hyponatremia. Replace KCL IV 5. Hypothyroidism with elevated TSH. Plan to place tunneled HD catheter and remove PD catheter WednesdayAugust 20 (after plavix held). Riz[place]ana is agreeable. Attestations Medical Necessity Statement*: see above Time Spent in Patient Care: Greater than 35 minutes Coding Level of Care Code Acute Grounds Maintenance Worker for Maris Braden
[2020-08-18] MEDS: potassium chloride premix 100 ML 25 MEQ IV (09:55)
[2020-08-18 10:49] LABS: Glucose Point of Care 127 mg/dL (70-110)
[2020-08-18] MEDS: lidocaine 1% INJ 20 mL 5 ML IV (12:12)
--- NOTE | 2020-08-18 13:04 | P.PN_ITS ---
Subjective Subjective: Interval history: Patient had loose bowel movements today after being given a suppository overnight for constipation. 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 Data : 08/18/20 06:59 08/18/20 06:59 Micro: Microbiology 08/15/20 04:30 Gram Stain - Final Peritoneal Fluid Body Fluid Culture - Preliminary Staphylococcus epidermidis A&P Assessment and plan (1) Peritonitis associated with peritoneal dialysis: cell count at 2800, Gram stain thus far negative, culture with coag negative staph Overall picture consistent with PD peritonitis Discontinue IV cefepime blood culture remains negative, no other organisms isolated from peritoneal fluid Intraperitoneal vancomycin per renal recommendations Given that this is recurrent PD peritonitis (2nd confirmed episode, potentially 3rd given bacteremia from abdominal source in 07/2020) , recommend current PD catheter removal. Patient is agreeable to removal. HD catheter planned to be placed on 08/20 after having Plavix on hold x5d per surgery PD catheter to be removed at the same time Patient has been counselled to transition to hemodialysis on multiple prior admissions and also now, agreeable now to transition. She still hopes to go back to PD for the senior care at some point after discharge, however should this happen in the future, she will need a new PD catheter regardless. Status: Acute (2) Diabetes mellitus: Continue high-dose insulin sliding scale, improved fingersticks today Status: Acute (3) Gastroparesis due to DM: Patient known to have gastroparesis with complaints of nausea vomiting frequently This is currently poorly controlled. Continue alternating Zofran and Reglan Diet advancement precluded by persisting nausea Status: Chronic (4) Major depression, recurrent: Status: Chronic Qualifiers: Active/Remission status: currently active Major depression episode severity: severe Psychotic features: without psychotic features Qualified Code (s): F33.2 - Major depressive disorder, recurrent severe without psychotic features Additional A&P Information End-stage renal disease on peritoneal dialysis, plan to transition to hemodialysis, removal of PD catheter, general surgery consulted. Hold Plavix. Elevated troponins in the range of 120s, serially negative delta's, less concerning for AMI, denies any chest pain, no acute ST-T wave changes. DVT prophylaxis Heparin Full code Attestations Medical Necessity Statement*: Pending HD catheter placement, initiation of hemodialysis, removal of PD catheter given recurrent PD peritonitis Coding Level of Care Code Acute Audio Narrator for [facility] Fwd Diagnoses Peritonitis associated with peritoneal dialysis T85.71XA Diabetes mellitus E11.9 Gastroparesis due to DM E11.43; K31.84 Major depression, recurrent F33.2 Active/Remission status: currently active Major depression episode severity: severe Psychotic features: without psychotic features
[2020-08-18 13:33] LABS: Quest SARS-CoV-2 RNA NOT DETECTED (NOT DETECTED)
[2020-08-18 16:49] LABS: Glucose Point of Care 187 mg/dL (70-110)
[2020-08-18 20:37] LABS: Glucose Point of Care 211 mg/dL (70-110)
[2020-08-18] MEDS: atorvastatin 40 mg Tablet PO (21:45)
[2020-08-19] VITALS (7 sets, daily range): BP systolic 97–113; BP diastolic 66–80; PULSE 61–70; RESP 12–18; TEMP 36.6–37.3; O2SAT 96–97
[2020-08-19] MEDS: Dianeal low Ca w/2.5% dex 2,000 mL Bag 2000 ML INTRAPERIT ×4 (04:55→23:12)
[2020-08-19] MEDS: metoclopramide 5 mg/mL SDV 2 mL 10 MG IVP ×2 (05:20→14:42)
[2020-08-19 06:24] LABS: Blood Urea Nitrogen 24 mg/dL (6-20); Calcium 8.7 mg/dL (8.5-10.5); Carbon Dioxide 21 mmol/L (22-29); Chloride 96 mmol/L (98-107); Glomerular Filtration Rate 8.6 mL/min (90-130); Glucose 110 mg/dL (65-115); Osmolality Calculated 275 mOsm/kg (285-295); Sodium 130 mmol/L (136-145)
[2020-08-19 06:31] LABS: Vancomycin Random 24.3 ug/mL (20.0-40.0)
[2020-08-19 06:35] LABS: Anion Gap 16.8 (5-19); Potassium 3.8 mmol/L (3.5-5.1)
[2020-08-19] MEDS: heparin 5,000 unit/mL INJ 1 mL 5000 UNIT SUBCUT ×2 (06:50→18:02)
[2020-08-19 06:56] LABS: Glucose Point of Care 219 mg/dL (70-110)
--- NOTE | 2020-08-19 07:03 | PC.NURSE ---
Bedside report received from KELECHI Valentino.
[2020-08-19 07:21] LABS: Basophils % 0.7 %; Eosinophils # 0.3 10^3/uL (0.0-0.8); Eosinophils % 4.9 %; Hematocrit 32.8 % (37.0-47.0); Hemoglobin 10.3 g/dL (11.5-15.3); Lymphocytes % 17.4 %; Mean Corpuscular HGB Conc 31.4 g/dL (30.0-36.0); Mean Corpuscular Hemoglobin 32.6 pg (28.0-34.0); Mean Corpuscular Volume 103.8 fL (81-99); Mean Platelet Volume 11.4 fL (7.4-10.4); Monocytes # 0.4 10^3/uL (0.2-0.9); Monocytes % 7.6 %; Neutrophils # 3.88 10^3/uL (1.8-7.7); Neutrophils % 67.3 %; Nucleated Red Blood Cells % 0 %; Platelet Count 161 10^3/cmm (130-400); Red Blood Count 3.16 10^6/uL (4.1-5.3); Red Cell Distribution Width 13.1 % (12.1-15.1); White Blood Count 5.8 10^3/uL (4.0-10.0)
[2020-08-19] MEDS: aspirin 81 mg Chew Tablet PO (07:23)
[2020-08-19] MEDS: pantoprazole DR 40 mg Tablet PO (07:24)
[2020-08-19] MEDS: levothyroxine 112 mcg Tablet 224 MCG PO (07:24)
[2020-08-19] MEDS: dorzolamide/timolol Op Soln 10 mL Btl 1 DROP EYE-LEFT ×2 (07:30→20:53)
[2020-08-19] MEDS: midodrine 5 mg TABLET PO ×3 (07:52→20:53)
[2020-08-19 10:56] LABS: Glucose Point of Care 188 mg/dL (70-110)
--- NOTE | 2020-08-19 11:01 | PM.PN ---
Subjective Subjective: Interval history: + nausea, mild abdominal pain RN reports no issues with PD Medications: Reviewed: Yes Medication Review Details: received second dose IP vancomycin yesterday Vitals/I&O/Wt Last Vital Signs Temp 98.5 F 08/19/20 08:00 Pulse 70 08/19/20 08:00 Resp 12 08/19/20 08:00 BP 97/72 08/19/20 08:00 Pulse Ox 97 08/19/20 08:00 08/18/20 08/19/20 08/19/20 22:59 06:59 14:59 Intake Total 100 / 125 Output Total 200 / 200 Balance 100 / 125 -200 / -75 Weight last 48 hrs Weight 92.079 kg Physical Exam Const: COMMON NORMALS: patient oriented x3 HENMT: COMMON NORMALS: normocephalic and atraumatic HEAD & SCALP: normocephalic and atraumatic Resp: COMMON NORMALS: clear to auscultation bilaterally EFFORT & INSPECTION: Yes symmetric chest movement AUSCULTATION: clear to auscultation bilaterally Cardio: COMMON NORMALS: regular rate, regular rhythm, S1 normal heart sound present, S2 normal heart sound present, No gallops present (Cardio), No murmurs present (Cardio), No rub (Cardio) and Peripheral pulses 2+ throughout RATE: regular rate RHYTHM: regular rhythm HEART SOUNDS: S1 normal heart sound present and S2 normal heart sound present PERIPHERAL PULSES: Peripheral pulses 2+ throughout GI: COMMON NORMALS: Normal to inspection, nondistended, normoactive bowel sounds present, Soft to palpation, non-tender, No hepatosplenomegaly present and no masses AUSCULTATION: Yes normoactive bowel sounds PALPATION: Yes Soft to palpation and Yes No hepatosplenomegaly present RECTAL EXAM: deferred Extremity: COMMON NORMALS: no clubbing, cyanosis or edema and no pedal edema Neuro: COMMON NORMALS: patient oriented x3 Data : 08/19/20 07:09 08/19/20 05:08 Micro: Microbiology 08/15/20 04:30 Gram Stain - Final Peritoneal Fluid Body Fluid Culture - Final Staphylococcus epidermidis A&P Assessment and plan (1) Peritonitis associated with peritoneal dialysis: cell count at 2800, Gram stain thus far negative, culture with coag negative staph Overall picture consistent with PD peritonitis Discontinue IV cefepime blood culture remains negative, no other organisms isolated from peritoneal fluid Intraperitoneal vancomycin per renal recommendations Given that this is recurrent PD peritonitis (2nd confirmed episode, potentially 3rd given bacteremia from abdominal source in 07/2020) , recommend current PD catheter removal. Patient is agreeable to removal. HD catheter planned to be placed on 08/20 after having Plavix on hold x5d per surgery PD catheter to be removed at the same time Patient has been counselled to transition to hemodialysis on multiple prior admissions and also now, agreeable now to transition. She still hopes to go back to PD for the skilled nursing at some point after discharge, however should this happen in the future, she will need a new PD catheter regardless. Status: Acute (2) Diabetes mellitus: Continue high-dose insulin sliding scale, improved fingersticks today Status: Acute (3) Gastroparesis due to DM: Patient known to have gastroparesis with complaints of nausea vomiting frequently This is currently poorly controlled. Continue alternating Zofran and Reglan Diet advancement precluded by persisting nausea Status: Chronic (4) Major depression, recurrent: Status: Chronic Qualifiers: Active/Remission status: currently active Major depression episode severity: severe Psychotic features: without psychotic features Qualified Code(s): F33.2 - Major depressive disorder, recurrent severe without psychotic features Additional A&P Information End-stage renal disease on peritoneal dialysis, plan to transition to hemodialysis, removal of PD catheter, general surgery consulted. Hold Plavix. Elevated troponins in the range of 120s, serially negative delta's, less concerning for AMI, denies any chest pain, no acute ST-T wave changes. DVT prophylaxis Heparin Full code Attestations Medical Necessity Statement*: Patient needs to the hospital for the management of PD peritonitis, awaiting placement of hemodialysis catheter, initiation of hemodialysis, removal of PD catheter. Coding Level of Care Code Acute Centrifuge Separator Tender for [facility] Fwd Diagnoses Peritonitis associated with peritoneal dialysis T85.71XA Diabetes mellitus E11.9 Gastroparesis due to DM E11.43; K31.84 Major depression, recurrent F33.2 Active/Remission status: currently active Major depression episode severity: severe Psychotic features: without psychotic features
--- NOTE | 2020-08-19 14:03 | DCPLANNER ---
Pg 2 of IM updated and reviewed with pt. No questions. Copy provided.
--- NOTE | 2020-08-19 17:12 | PM.PN ---
Subjective Subjective: Interval history: + nausea, mild abdominal pain RN reports no issues with PD Medications: Reviewed: Yes Vitals/I&O/Wt Last Vital Signs Temp 98.2 F 08/19/20 15:42 Pulse 63 08/19/20 15:42 Resp 18 08/19/20 15:42 BP 113/70 08/19/20 15:42 Pulse Ox 96 08/19/20 15:42 08/19/20 08/19/20 08/19/20 06:59 14:59 22:59 Intake Total 60 / 60 Output Total 200 / 200 Balance -200 / -75 60 / 60 Weight last 48 hrs Weight 90.174 kg Weight 92.079 kg Data : 08/19/20 07:09 08/19/20 05:08 Other Labs: vanco 24 Micro: Microbiology 08/14/20 11:15 Blood Culture - Final Blood NO GROWTH AFTER 5 DAYS 08/14/20 11:15 Blood Culture - Final Blood NO GROWTH AFTER 5 DAYS 08/15/20 04:30 Gram Stain - Final Peritoneal Fluid Body Fluid Culture - Final Staphylococcus epidermidis A&P Additional A&P Information 1. ESRD on peritoneal dialysis, + recurrent peritonitis. PD may be worsening gastroparesis. Nutrition is poor. Diabetes is not controlled. plan to discontinue PD, remove PD catheter, start HD 08/20/20 2. MRSE Peritonitis, peritoneal WBC improved, received IP vanco 08/15/20 and 08/17/20 3. Anemia, stable, received procrit 08/15/20, change to IV epogen at HD 4. Hypokalemia, hyponatremia. Replace KCL IV 5. Hypothyroidism with elevated TSH. Plan to place tunneled HD catheter and remove PD catheter WednesdayAugust 20 (after plavix held). Rizwana is agreeable. RN instructed to drain PD fluid in AM and not fill. 2 hour HD tomorrow, 3 hours Wednesday. Please proceed with referral for outpatient HD. Attestations Medical Necessity Statement*: see above Time Spent in Patient Care: 16 - 35 minutes Coding Level of Care Code Acute Toll Patrolman for Maris Braden
[2020-08-19 17:21] LABS: Glucose Point of Care 137 mg/dL (70-110)
[2020-08-19] MEDS: ondansetron 2 mg/ML SDV 2 mL 4 MG IVP (18:36)
[2020-08-19 20:13] LABS: Glucose Point of Care 203 mg/dL (70-110)
[2020-08-19] MEDS: atorvastatin 40 mg Tablet PO (20:52)
--- NOTE | 2020-08-19 23:29 | PC.NURSE ---
Peritoneal dialysis drain began at 2210. This nurses assessed patient at 2240 there was 1000ml in drain bag. Patient turned to left side to promote drainage. Reassessed patient at 2310 to find 2200ml in drain bag. Patient began new dwell at 2313 instilling 2000ml.
[2020-08-20] VITALS (21 sets, daily range): BP systolic 98–116; BP diastolic 57–76; PULSE 62–75; RESP 8–18; TEMP 36.4–37; O2SAT 90–100
--- NOTE | 2020-08-20 | SCC_ITS ---
Procedure Done: Placement of right femoral vein triple-lumen 7 [place] central line. Placement of right internal jugular vein 16 [place] 36 cm hemodialysis tunneled catheter. 18.3 seconds of fluoroscopic guidance, for a cumulative dose of 2.75 mGy, was provided to Dr. Still by the radiology department. C-arm images of the chest were saved for the patient's permanent record. [facility]
[2020-08-20] MEDS: morphine 4 mg/mL SDV 1 mL 2 MG IVP ×2 (02:13→22:21)
[2020-08-20] MEDS: ondansetron 2 mg/ML SDV 2 mL 4 MG IVP (04:16)
--- NOTE | 2020-08-20 06:16 | P.PN_ITS ---
Subjective Subjective: Interval history: Patient overall is about the same. No acute events overnight. Medications: Reviewed: Yes Vitals/I&O/Wt Last Vital Signs Temp 98.3 F 08/20/20 04:17 Pulse 64 08/20/20 04:17 Resp 18 08/20/20 04:17 BP 115/71 08/20/20 04:17 Pulse Ox 96 08/20/20 04:17 08/19/20 08/19/20 08/20/20 14:59 22:59 06:59 Intake Total 60 / 60 Output Total 0 / 0 0 / 0 Balance 60 / 60 0 / 60 0 / 60 Weight last 48 hrs Weight 198 lb 12.8 oz Physical Exam Narrative: EXAM NARRATIVE: Patient is conscious alert oriented X3 BMI 34 Head and neck examination PERRLA no masses no cervical lymphadenopathy no jaundice Cardiac examination audible S1-S2 no murmurs no gallops no arrhythmias Chest is clear bilateral,abscence of Rhonchi or wheezes,no surgical emphysema Abdomen nontender nondistended soft no organomegaly guarding or rigidity/no signs of peritonitis Left upper quadrant PD catheter in place without complication. Data : 08/19/20 07:09 08/19/20 05:08 Micro: Microbiology 08/14/20 11:15 Blood Culture - Final Blood NO GROWTH AFTER 5 DAYS 08/14/20 11:15 Blood Culture - Final Blood NO GROWTH AFTER 5 DAYS A&P Assessment and plan (1) End stage renal disease: Plan of care; After thorough history physical examination and reviewing the chart and reviweing the images iwth my personal intrepretation.I counseled the patient for tunneled hemodialysis catheter placement and explantation of peritoneal dialysis catheter, indications, risks including pneumothorax that may require Chest tube(s) placement and potential injury of major vascular structures or other viscera that may require Thoractomy/laparotomy, benefits,indications and alternatives were all discussed with the patient, patient understands and is interested to proceed. Rationale was carefully and clearly discussed with the patient.Appropriate informed consent have been reviewed and signed. Assurance and education All questions have been answered and all concerns have been addressed to patient's satisfaction. Thank you for consulting general surgery to participate taking care Mino Status: Acute Attestations Medical Necessity Statement*: Inpatient hospitalization for medical care and planning for placement of tunneled hemodialysis catheter and explantation of PD catheter. Time Spent in Patient Care: (>than 50% of time spent in counselling and/or direct pt care on unit) . 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
[2020-08-20 06:21] LABS: Glucose Point of Care 121 mg/dL (70-110)
[2020-08-20] MEDS: metoclopramide 5 mg/mL SDV 2 mL 10 MG IVP (07:05)
[2020-08-20 07:07] LABS: Hepatitis B Surface AB 19.6 (0-8.5); Hepatitis B Surface Antigen Non-Reactive (Nonreactive); Hepatitis C Virus Antibody Non-Reactive (Nonreactive)
[2020-08-20] MEDS: dorzolamide/timolol Op Soln 10 mL Btl 1 DROP EYE-LEFT ×2 (08:25→21:12)
--- NOTE | 2020-08-20 10:36 | PC.NURSE ---
OR OFF UNIT TO OR WITH EVAN FERNANDES AT SIDE
--- NOTE | 2020-08-20 10:55 | SC_ITS ---
WS: [id number] C-arm [place] for CVA [id number] REASON FOR EXAM: Placement of tunneled hemodialysis catheter FINDINGS: Single AP view during line placement demonstrates a double-lumen dialysis catheter accessing the righ t internal jugular vein with the catheter tips at the atrial level. No acute abnormality, specifically no right pneumothorax noted. SC/C-arm FL for CVA [id number] IMPRESSION: Dialysis catheter placement as above.
--- NOTE | 2020-08-20 10:55 | ANES.PREANE2 ---
Pre-Anesthetic Assessment Pre-Anesthetic Assessment: Height/Weight: Height 1.65 m Weight 90.174 kg Temp Pulse Resp BP Pulse Ox 97.7 F 69 18 98/62 90 08/20/20 08:00 08/20/20 08:00 08/20/20 08:00 08/20/20 08:00 08/20/20 08:00 Preop Diagnosis: End-stage renal disease Proposed Procedure: Operation Date: 08/20/20 11:05 Proposed Procedures p Dialysis Catheter Insertion(Not Applicable) - Ifeanyi Still MD s Peritoneal Catheter Removal(Not Applicable) - Ifeanyi Still MD Was Beta Abdon taken within 24 hours: N/A Was Clonidine taken within 24 hours: N/A Last intake: Intake Last Liquid Date 08/19/20 Last Liquid Time 00:00 Last Solid Date 08/18/20 Last Solid Time 18:00 Social: Social History: No alcohol and No tobacco Exam: Pre-Anes Outpt Exam: alert, oriented x 3, clear to auscultation bilaterally and regular rate & rhythm Airway: Submandibular: WNL Cervical ROM: WNL MP: 3 Dentition: Full CV/HEM: CV/HEM: CAD (stent) : : Chronic renal failure GI: GI: GERD Metabolic: Metabolic: DM and Morbid obesity Neuropsych: Neuropsych: Anxiety Anesthetic Plan: ASA status: 3 Anesthesia: General Risk of > 500 ml blood loss (7ml/kg in children): No Meds/Allergies Current Medications: Current Medications Generic Name Dose Route Start Last Admin Trade Name Freq PRN Reason Stop Dose Admin Aspirin 81 mg 08/15/20 08:00 08/20/20 08:04 Aspirin 81 Mg Ch ew Tablet PO Not Given DAILY@08 [facility] Atorvastatin Calci um 40 mg 08/14/20 20:00 08/19/20 20:52 Atorvastatin 40 Mg Tablet PO 40 mg DAILY@20 [facility] Administration Clopidogrel Bisulf ate 75 mg 08/15/20 08:00 08/15/20 08:00 Clopidogrel 75 M g Tablet PO 75 mg DAILY@08 [facility] Administration Dorzolamide/Timolo l 1 drop 08/14/20 20:00 08/20/20 08:25 Dorzolamide/Ben lol Op Soln 10 Ml Btl EYE-LEFT 1 drop BID@08,20 [facility] Administration Gentamicin Sulfate 1 applic 08/16/20 09:00 08/20/20 08:24 Gentamicin 0.1% Cream 15 Gm TOPICAL 1 applic DAILY [facility] Administration Heparin Sodium (Be ef Lung) 5,000 unit 08/14/20 18:45 08/19/20 18:02 Heparin 5,000 Un it/Ml Inj 1 Ml SUBCUT 5,000 unit Q12H JERSON Administration Insulin Aspart 0 unit 08/14/20 21:00 08/20/20 08:04 Insulin Aspart 1 00 Unit/1 Ml SUBCUT Not Given WM&BEDTIME [facility] Protocol Levothyroxine Sodi um 224 mcg 08/15/20 08:00 08/20/20 08:05 Levothyroxine 11 2 Mcg Tablet PO Not Given DAILY@0800 [facility] Metoclopramide HCl 10 mg 08/15/20 17:40 08/20/20 07:05 Metoclopramide 5 Mg/Ml Sdv 2 Ml IVP 10 mg Q8H PRN Administration NAUSEA AND VOMITI NG Midodrine 5 mg 08/14/20 20:00 08/20/20 08:05 Midodrine 5 Mg T ablet PO Not Given TID@,,20 [facility] Morphine Sulfate 2 mg 08/20/20 02:08 08/20/20 02:13 Morphine 4 Mg/Ml Sdv 1 Ml IVP 2 mg Q4H PRN Administration SEVERE PAIN Non-Formulary Medi cation 1 drop 08/14/20 20:00 08/19/20 21:29 [facility]st [facility] OPHTHALMIC (EYE) Not Given DAILY@20 [facility] Ondansetron HCl 4 mg 08/14/20 14:43 08/20/20 04:16 Ondansetron 2 Mg /Ml Sdv 2 Ml IVP 4 mg Q6H PRN Administration NAUSEA AND VOMITI NG Pantoprazole Sodiu m 40 mg 08/15/20 08:00 08/20/20 08:[address] 40 Mg Tablet PO Not Given DAILY@08 [facility] Peritoneal Dialysi s Solution 2,000 ml 08/16/20 04:00 08/19/20 23:12 Dianeal Low Ca W /2.5% Dex 2,000 Ml Bag INTRAPERIT 2,000 ml Q6H JERSON Administration PFSH Anesthesia PFSH: Medical History Anxiety BPPV (benign paroxysmal positional vertigo) CAD (coronary artery disease) Carotid stenosis Chronic diastolic CHF (congestive heart failure) Chronic left sacroiliac joint pain Claustrophobia Depression Diabetes Insulin-dependent End stage renal disease peritoneal dialysis ESBL (extended spectrum beta-lactamase) producing bacteria infection ESRD (end stage renal disease) Gastroparesis GERD (gastroesophageal reflux disease) HTN (hypertension) Hyperlipidemia Hypothyroidism Insulin dependent diabetes mellitus DOROTEO on CPAP Partial nontraumatic amputation of left foot (~06/2019) Peripheral vascular disease Phantom pain Suicidal ideation TIA (transient ischemic attack) Vitamin D deficiency Surgical History H/O hysterectomy with oophorectomy History of appendectomy History of heart artery stent History of hysterectomy History of left heart catheterization History of right below knee amputation Peritoneal dialysis catheter in place S/P cholecystectomy S/P PICC central line placement Status post amputation of toe Family History Denies family history of CAD (coronary artery disease) Clotting disorder Dementia Bleeding disorder Social History Smoking and tobacco status: never smoked Alcohol intake: never Household members: spouse and family History of recent travel: No Data Anesthesia CBC & Chem 7: 08/19/20 07:09 08/19/20 05:08 Other Labs: Laboratory Results - last 48 hr 08/17/20 08/18/20 08/18/20 12:15 16:44 20:30 WBC RBC Hgb Hct MCV MCH MCHC RDW Plt Count MPV Neut % (Auto) Lymph % (Auto) Sterling % (Auto) Eos % (Auto) Baso % (Auto) Neut # (Auto) Lymph # (Auto) Sterling # (Auto) Eos # (Auto) Baso # (Auto) Nucleated RBC % (auto) Nucleated RBCs # Sodium Potassium Chloride Carbon Dioxide Anion Gap BUN Creatinine GFR Calculation Glucose POC Glucose 187 H 211 H Calculated Osmolality Calcium Random Vancomycin Hep Bs Antigen Hep Bs Antibody Hepatitis C Antibody SARS-CoV-2 RNA (RT-PCR) Not detected 08/19/20 08/19/20 08/19/20 05:08 05:08 06:46 WBC RBC Hgb Hct MCV MCH MCHC RDW Plt Count MPV Neut % (Auto) Lymph % (Auto) Sterling % (Auto) Eos % (Auto) Baso % (Auto) Neut # (Auto) Lymph # (Auto) Sterling # (Auto) Eos # (Auto) Baso # (Auto) Nucleated RBC % (auto) Nucleated RBCs # Sodium 130 L Potassium 3.8 Chloride 96 L Carbon Dioxide 21 L Anion Gap 16.8 BUN 24 H Creatinine 5.2 H GFR Calculation 8.6 L Glucose 110 POC Glucose 219 H Calculated Osmolality 275 L Calcium 8.7 Random Vancomycin 24.3 Hep Bs Antigen Hep Bs Antibody Hepatitis C Antibody SARS-CoV-2 RNA (RT-PCR) 08/19/20 08/19/20 08/19/20 07:09 10:49 16:42 WBC 5.8 RBC 3.16 L Hgb 10.3 L Hct 32.8 L MCV 103.8 H MCH 32.6 MCHC 31.4 RDW 13.1 Plt Count 161 MPV 11.4 H Neut % (Auto) 67.3 Lymph % (Auto) 17.4 Sterling % (Auto) 7.6 Eos % (Auto) 4.9 Baso % (Auto) 0.7 Neut # (Auto) 3.88 Lymph # (Auto) 1.0 Sterling # (Auto) 0.4 Eos # (Auto) 0.3 Baso # (Auto) 0.0 Nucleated RBC % (auto) 0 Nucleated RBCs # 0.0 Sodium Potassium Chloride Carbon Dioxide Anion Gap BUN Creatinine GFR Calculation Glucose POC Glucose 188 H 137 H Calculated Osmolality Calcium Random Vancomycin Hep Bs Antigen Hep Bs Antibody Hepatitis C Antibody SARS-CoV-2 RNA (RT-PCR) 08/19/20 08/20/20 08/20/20 19:20 05:22 06:15 WBC RBC Hgb Hct MCV MCH MCHC RDW Plt Count MPV Neut % (Auto) Lymph % (Auto) Sterling % (Auto) Eos % (Auto) Baso % (Auto) Neut # (Auto) Lymph # (Auto) Sterling # (Auto) Eos # (Auto) Baso # (Auto) Nucleated RBC % (auto) Nucleated RBCs # Sodium Potassium Chloride Carbon Dioxide Anion Gap BUN Creatinine GFR Calculation Glucose POC Glucose 203 H 121 H Calculated Osmolality Calcium Random Vancomycin Hep Bs Antigen Non-reactive Hep Bs Antibody 19.6 H Hepatitis C Antibody Non-reactive SARS-CoV-2 RNA (RT-PCR) Micro: Microbiology 08/14/20 11:15 Blood Culture - Final Blood NO GROWTH AFTER 5 DAYS 08/14/20 11:15 Blood Culture - Final Blood NO GROWTH AFTER 5 DAYS Cardiac Studies: Holter Monitor 04/08/20
[2020-08-20] MEDS: sodium chloride 0.9% 1,000 ML 30 ML IV (11:27)
--- NOTE | 2020-08-20 11:56 | SUR.PREOP ---
PATIENT GIVEN ALBUMIN 25% 12.5GM IV PREOP, ORDERED BY ANESTHESIA. [id number] OCTOBER [birth year]
[2020-08-20] MEDS: heparin, porcine 1,000 unit/mL INJ 10 mL 10000 UNIT INJECTION (13:09)
[2020-08-20] MEDS: lidocaine 2% INJ 20 mL INJECTION (13:10)
--- NOTE | 2020-08-20 13:45 | PM.PN ---
Subjective Subjective: Interval history: Patient was seen and examined this morning.No acute event overnight.Currently she is s/p placement of tunneled rt I.J Catheter as well as for removal of P.D Catheter. Rt Femoral catheter was also placed during the surgery.She was intubated and post procedure she was extubated. Medications: Reviewed: Yes Medication Review Details: reviewed Vitals/I&O/Wt Last Vital Signs Temp 98.1 F 08/20/20 11:45 Pulse 62 08/20/20 11:45 Resp 18 08/20/20 11:45 BP 102/64 08/20/20 11:45 Pulse Ox 100 08/20/20 11:30 08/19/20 08/20/20 08/20/20 22:59 06:59 14:59 Output Total 0 / 0 0 / 0 Balance 0 / 60 0 / 60 Weight last 48 hrs Weight 90.174 kg Physical Exam Const: COMMON NORMALS: patient oriented x3 HENMT: COMMON NORMALS: normocephalic and atraumatic HEAD & SCALP: normocephalic and atraumatic Resp: COMMON NORMALS: clear to auscultation bilaterally EFFORT & INSPECTION: Yes symmetric chest movement AUSCULTATION: clear to auscultation bilaterally Cardio: COMMON NORMALS: regular rate, regular rhythm, S1 normal heart sound present, S2 normal heart sound present, No gallops present (Cardio), No murmurs present (Cardio), No rub (Cardio) and Peripheral pulses 2+ throughout RATE: regular rate RHYTHM: regular rhythm HEART SOUNDS: S1 normal heart sound present and S2 normal heart sound present PERIPHERAL PULSES: Peripheral pulses 2+ throughout GI: COMMON NORMALS: Normal to inspection, nondistended, normoactive bowel sounds present, Soft to palpation, non-tender, No hepatosplenomegaly present and no masses AUSCULTATION: Yes normoactive bowel sounds PALPATION: Yes Soft to palpation and Yes No hepatosplenomegaly present RECTAL EXAM: deferred Extremity: COMMON NORMALS: no clubbing, cyanosis or edema and no pedal edema Neuro: COMMON NORMALS: patient oriented x3 Data : 08/19/20 07:09 08/19/20 05:08 Micro: Microbiology 08/14/20 11:15 Blood Culture - Final Blood NO GROWTH AFTER 5 DAYS 08/14/20 11:15 Blood Culture - Final Blood NO GROWTH AFTER 5 DAYS A&P Assessment and plan (1) Peritonitis associated with peritoneal dialysis: MRSDiya Peritonitis: cell count at 2800, Gram stain thus far negative, culture with coag negative staph Overall picture consistent with PD peritonitis Discontinued IV cefepime as blood culture remained negative, no other organisms isolated from peritoneal fluid Intraperitoneal vancomycin per renal recommendations ( received IP vanco 08/15/20 and 08/17/20) Given that this is recurrent PD peritonitis (2nd confirmed episode, potentially 3rd given bacteremia from abdominal source in 07/2020) , I.D recommend current PD catheter removal. s/p HD catheter placement on 08/20 initially Plavix was held for x5d per surgery rec. It was resumed on 08/21. S/P PD catheter removal on 08/20 S/P Rt I.J Tunneled catheter placement.She will resume with H/D. Output hemodialysis referral. Status: Acute (2) Diabetes mellitus: Continue high-dose insulin sliding scale, improved fingersticks today Status: Acute (3) Gastroparesis due to DM: Patient known to have gastroparesis with complaints of nausea vomiting frequently This is currently poorly controlled. Continue alternating Zofran and Reglan Diet advancement precluded by persisting nausea Status: Chronic (4) Major depression, recurrent: Status: Chronic Qualifiers: Active/Remission status: currently active Major depression episode severity: severe Psychotic features: without psychotic features Qualified Code(s): F33.2 - Major depressive disorder, recurrent severe without psychotic features Additional A&P Information End-stage renal disease on peritoneal dialysis, plan to transition to hemodialysis, removal of PD catheter, general surgery consulted. Hold Plavix. Elevated troponins in the range of 120s, serially negative delta's, less concerning for AMI, denies any chest pain, no acute ST-T wave changes. DVT prophylaxis Heparin Full code Attestations Medical Necessity Statement*: Patient needs to be in hospital for continued H/D and to be set up for H/D as outpatient. 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
[2020-08-20 14:16] LABS: Glucose Point of Care 147 mg/dL (70-110)
[2020-08-20] MEDS: neomycin-poly-bacitracin oint 28 gm 1 APPLIC TOPICAL (15:00)
--- NOTE | 2020-08-20 15:54 | PM.OP ---
Operative Report Date of procedure: August 20, 2020 Pre-op Diagnosis: End-stage renal disease,Poor venous access Post-op Findings: Normal anatomy right internal jugular vein Tunneled Tenckhoff catheter left side of the abdomen with 2 cuffs Procedure Done: Placement of right femoral vein triple-lumen 7 Barbadian central line. Placement of right internal jugular vein 16 Barbadian 36 cm hemodialysis tunneled catheter. Ultrasound and fluoroscopic guidance was interpreted by me through the whole entire procedure Explantation of peritoneal dialysis catheter Implants: Right internal jugular vein 16 Barbadian 36 cm hemodialysis tunneled catheter. Specimens removed/disposition: Tenckhoff peritoneal dialysis catheter for gross pathology Surgeon: Ifeanyi Still Typesetter Perforator Operator: Sam Otoole Anesthesia: General (Jesenia Forbes CRNA and Dr. Peralta) Estimated blood loss (mL): 15 Findings: Poor venous access Condition: stable Disposition: floor Brief History: Full H&P per chart, informed consent per chart. Procedure: After identifying the patient in the holding area, was taken to the operating room, placed in supine position, yet was found that the patient has poor venous access and multiple trials were done by the anesthesia team unfortunately were not successful. Timeout was done verifying the patient's name procedure and destination after the procedure Right femoral vein central line placement Prep& drape was done under the usual sterile technique of the right groin lidocaine 2% was injected at the site of the stick that was already attempted by the anesthesia provider, I was able to access the right femoral vein.I was able to retrieve venous blood, a guidewire was then threaded at that point the guidewire was secured to the drapes with a hemostat and the needle was taken out, the dilator that comes with the Kit was introduced onto the wire,the dilator was then taken out and a 7 Barbadian triple-lumen was introduced onto the wire was retrieved. The three ports were flushed and appropriate blood was retrieved first, Hep-Lock's were then applied The catheter was then secured onto the right groin area with silk suture. Patient tolerated the procedure well Count was correct at the end of the procedure I was present for the whole entire procedure. After having appropriate intravenous access ,anesthesia started putting patient to sleep and got intubated Time-out was done verifying the patient's name/date of /planned procedure and destination after the procedure, all were in agreement. Medications were reviewed to assess for anticoagulant usage. Risks and benefits and prevention of central line associated blood stream infection (CLABSI) were discussed with the patient/CPOA, and a consent was obtained. Monitors were in place and monitored throughout the procedure. All necessary supplies were available prior to start. Hand hygiene was completed prior to starting. Maximum barrier technique was utilized including a sterile gown, sterile gloves with a hat and mask. Site was was prepped with [chlorhexidine] and a full body drape was placed. 5 mL of 2% lidocaine was injected into the skin with a 25 gauge needle. Prep& drape was done under the usual sterile technique of upper chest right and left as well as the neck both sides, lidocaine 2% was injected at the site of the stick, started by right internal jugular under ultrasound guidance and showed no intraluminal thrombosis. After the stick I was able to retrieve venous blood was obtained from the first stick, a guidewire was then threaded and under the guidance of fluoroscopy position was confirmed to be in the IVC, there was no PVC changes, at that point the guidewire was secured to the drapes with a hemostat and the needle was taken out, attention was then deviated towards creation of an insert for the HD catheter at the right upper chest, were lidocaine 2% was injected using an 15 blade knife skin incision was created dissection using a hemostat to create an entrance and for the HD catheter to be inserted were it was connected to a tunneler, and the tunneler was used to accommodate the catheter of the HD catheter to be delivered through the incision first created at the site of the stick, a small jennie was created with 11 blade knife to allow delivery of the catheter, at that point under fluoroscopy,serial dilators were done that come in the in the KIT, followed by that a dilator with the sheath introduced onto the guidewire ,the dilator and the wire were retrieved and the catheter of the port was introduced via the sheath where it was peeled off and the catheter maintained to be in good position.I was able to retrieve blood liberally and on the fluoroscopy catheter look to be in good position at the cavoatrial junction. Was able to flush both ports with diluted arterial and venous without complication. The stick site was closed by 3-0 Vicryl deep subdermal interrupted sutures, followed by 4-0 Monocryl and Dermabond was used followed by dry dressing was applied,3/0 nylon was used to secure the hemodialysis catheter onto the anterior chest wall. Appropriate dressing was applied onto the right upper chest HD catheter Patient tolerated this part of the procedure Count was correct at the end of the procedure I was present for the whole entire procedure Placement of a HemoSplit hemodialysis catheter 16 Barbadian,36 cm arterial side, 31 cm venous side Catheter was placed via the right internal jugular vein and fluoroscopy guidance and interpretation by me Attention was deviated now towards the explantation of the peritoneal dialysis catheter. At this point I did scrub out and and rescrubbed back.Prep and drape of the abdomen was done under the usual sterile technique, after palpation of the site of the catheter towards the left side of the abdomen skin incision was created and dissection further to the subcutaneous layer was done and exteriorization of the catheter was achieved after taking all adhesions down, yet there was a previous scar towards the upper mid abdomen that I did have a skin incision to dissect further the catheter and further dissection caudad showed that the catheter has more extension towards the lower abdomen and there was another previous scar at the index placement of the peritoneal dialysis catheter, another incision was created and further dissection taking all adhesions down as there was a cuff appreciated and after all adhesions were taken down the catheter was taken out without resistance and the fascial defect was closed by #1 PDS under direct visualization. Noticed that the patient's Tenckhoff catheter had to cuffs resulting in intense fibrosis the first 1 closer to the exit site of the catheter and the second 1 was towards the lower abdomen. After freeing the catheter from all adhesions the catheter was taken, that I did divide the catheter at some point to free it from the adhesions and that was stitched together for continuity but it was all intact and sent for gross pathology. All wounds were copiously and thoroughly irrigated with warm saline followed by appropriate hemostasis then closure by Vicryl then skin travis. Dry dressing was then applied Patient tolerated the procedure well and was taken recovery area after extubation I was present for the whole entire procedure
--- NOTE | 2020-08-20 16:21 | XR_ITS ---
WS: [id number] XR chest 1V portable [id number] REASON FOR EXAM: Staus post placement of right internal jugular vein FINDINGS: Compared to the previous examination of 08/14/2020, and dialysis catheter is been placed in the right internal jugular vein with the tip at the cavoatrial junction. There are no acute cardiopulmonary findings. Coronary artery stents noted. XR/XR chest 1V portable [id number] IMPRESSION: Right internal jugular dialysis catheter as above.
--- NOTE | 2020-08-20 16:39 | PM.PN ---
Subjective Subjective: Interval history: Had PD catheter removed and HD catheter inserted today Medications: Medication Review Details: reviewed Vitals/I&O/Wt Last Vital Signs Temp 98.6 F 08/20/20 16:20 Pulse 75 08/20/20 16:20 Resp 18 08/20/20 16:20 BP 113/66 08/20/20 16:20 Pulse Ox 100 08/20/20 16:20 08/20/20 08/20/20 08/20/20 06:59 14:59 22:59 Intake Total 0 / 0 Output Total 0 / 0 0 / 0 Balance 0 / 60 0 / 0 Weight last 48 hrs Weight 90.174 kg Data : 08/19/20 07:09 08/19/20 05:08 Micro: Microbiology 08/14/20 11:15 Blood Culture - Final Blood NO GROWTH AFTER 5 DAYS 08/14/20 11:15 Blood Culture - Final Blood NO GROWTH AFTER 5 DAYS CXR: Radiologist's impression: Compared to the previous examination of 08/14/2020, and dialysis catheter is been placed in the right internal jugular vein with the tip at the cavoatrial junction. There are no acute cardiopulmonary findings. Coronary artery stents noted. A&P Additional A&P Information 1. ESRD on peritoneal dialysis, + recurrent peritonitis. PD catheter removed and tunneled HD catheter inserted today. start HD 08/21/20 2. MRSE Peritonitis, peritoneal WBC improved, received IP vanco 08/15/20 and 08/17/20 3. Anemia, stable, received procrit 08/15/20, change to IV epogen at HD 4. Hypotension, takes midodrine TID 5. Hypothyroidism with elevated TSH. Plan: 2 hour HD tomorrow, 3 hours . Please proceed with referral for outpatient HD. Attestations Medical Necessity Statement*: per primary service Time Spent in Patient Care: 16 - 35 minutes Coding Level of Care Code Acute Production Line Technician for Maris Braden
--- NOTE | 2020-08-20 16:46 | SUR.PHASEI ---
1628 PT AWAKE ALERT TAKING ICE [employer]IPS VSS REPORT CALLED AND PT TO GO TO DIALYSIS ON ARRIVAL TO FLOOR. CALLED BY DR MARTIENS, RT NECK WITH EXOFIN FROM ATTEMPTED IV SITE, CVL TO RT GROIN WITH NS AT KVO TO PROXIMAL PORT, RT SUBCLAVIAN AREA WITH DIALYSIS CATHETER WITH 2X2 OPSITE. ABD HAS 2 DRESSING D/I WITH SLIGHT AMT OF DRAINAGE MARKED PT ABD SOFT, VSS PT TO FLOOR PER CART.
--- NOTE | 2020-08-20 16:49 | PC.NURSE ---
Addendum entered by Emani Narayan RN 08/20/20 18:55: RIGHT NECK NOTED TO HAVE DERMABOND IN PLACE DUE TO ATTEMPT TO PLACE IJ IN OR Original Note: OR NOTE UP VIA [facility] WITH EVAN FERNANDES - 02 2L NC - PT AROUSABLE PER VERBAL STIMULI - RIGHT CHEST WALL FISTULA NOTED TO BE C/D/I WITH NO REDNESS OR DRAINAGE NOTED - ABD NOTED TO HAVE X3 DRESSINGS WITH SMALL AMOUNT OF DRAINAGE NOTED - RIGHT FEMORAL LINE SECURED WITH OPSITE - SCANT AMOUNT OF DRAINAGE NOTED - IVF UP AT K[facility] - RIGHT SLEEVE REMAINS ON BKA - LEFT SCD IN PLACE - PT DENIES PAIN - VSS
[2020-08-20 17:00] LABS: Glucose Point of Care 129 mg/dL (70-110)
--- NOTE | 2020-08-20 17:05 | ANE.PACU2 ---
Inpatient post-anesthesia follow up: Airway intact: Yes Vital signs: Temperature 97.9 F Pulse Rate [Monito r] 83 Pulse Rate 72 Respiratory Rate 16 Blood Pressure [Ri ght Arm] 128/81 Blood Pressure 110/76 Pulse Oximetry 100 Oxygen Delivery Me thod [ Nasal Cannula Current Rate & Del pa] Oxygen Delivery Me thod Nasal Cannula Oxygen Flow Rate [ Current Rate 2 & Delivery] Oxygen Flow Rate 3 Fraction of Inspir ed Oxygen Hydration adequate: Yes Nausea and vomiting: No Pain level: 2 Additional Comments: Sedated
[2020-08-20] MEDS: heparin 5,000 unit/mL INJ 1 mL 5000 UNIT SUBCUT (17:49)
[2020-08-20 20:49] LABS: Glucose Point of Care 139 mg/dL (70-110)
[2020-08-20] MEDS: prochlorperazine 10 mg Tablet 5 MG PO (21:11)
[2020-08-20] MEDS: midodrine 5 mg TABLET PO (21:11)
[2020-08-20] MEDS: atorvastatin 40 mg Tablet PO (21:11)
--- NOTE | 2020-08-21 02:38 | PC.NURSE ---
patient tried to use the bedpan and was unsuccessful, made complaints about tenderness in the lower abdominal area and felt the urge to need to pee. This nurse bladder scanned patent and it showed [address] Pearson, she said to continue to monitor, if needed re-bladder scan patient and if over 400 mls put in a one time order to straight cath patient due to retention.
[2020-08-21 04:00] VITALS: BP 119/76; PULSE 71; RESP 16; TEMP 36.6; O2SAT 97
[2020-08-21 05:46] LABS: Basophils % 0.4 %; Eosinophils # 0.3 10^3/uL (0.0-0.8); Hematocrit 30.5 % (37.0-47.0); Hemoglobin 9.9 g/dL (11.5-15.3); Lymphocytes # 0.8 10^3/uL (0.8-4.8); Mean Corpuscular HGB Conc 32.5 g/dL (30.0-36.0); Mean Corpuscular Hemoglobin 32.7 pg (28.0-34.0); Mean Corpuscular Volume 100.7 fL (81-99); Mean Platelet Volume 11.1 fL (7.4-10.4); Monocytes # 0.6 10^3/uL (0.2-0.9); Monocytes % 8.7 %; Neutrophils # 5.12 10^3/uL (1.8-7.7); Neutrophils % 73.9 %; Nucleated Red Blood Cells % 0 %; Platelet Count 246 10^3/cmm (130-400); Red Blood Count 3.03 10^6/uL (4.1-5.3); Red Cell Distribution Width 13.2 % (12.1-15.1); White Blood Count 6.9 10^3/uL (4.0-10.0)
[2020-08-21 06:14] LABS: Blood Urea Nitrogen 29 mg/dL (6-20); Calcium 9.3 mg/dL (8.5-10.5); Carbon Dioxide 25 mmol/L (22-29); Chloride 94 mmol/L (98-107); Glomerular Filtration Rate 6.7 mL/min (90-130); Glucose 138 mg/dL (65-115); Osmolality Calculated 280 mOsm/kg (285-295); Sodium 131 mmol/L (136-145)
[2020-08-21] MEDS: heparin 5,000 unit/mL INJ 1 mL 5000 UNIT SUBCUT ×2 (06:19→18:11)
[2020-08-21 06:20] LABS: Vancomycin Random 19.1 ug/mL (20.0-40.0)
[2020-08-21 06:34] LABS: Magnesium 1.6 mg/dL (1.7-2.3); Phosphorus 5.7 mg/dL (2.5-4.5)
[2020-08-21 06:46] LABS: Glucose Point of Care 154 mg/dL (70-110)
--- NOTE | 2020-08-21 07:24 | PC.NURSE ---
Addendum entered by YVETTE Jo 08/21/20 07:48: patient had 300 ml out via straight cath. Original Note: This nurse bladder scanned patient again and got a reading of 419 and 421. Putting in one time order for straight cath per Dr. Jeronimo. Will document output in I and O of chart.
[2020-08-21 07:45] VITALS: BP 112/68; PULSE 72; RESP 17; TEMP 36.6; O2SAT 96
--- NOTE | 2020-08-21 07:51 | P.PN_ITS ---
Subjective Subjective: Interval history: Patient seems to be resting in no acute events overnight. Medications: Reviewed: Yes Vitals/I&O/Wt Last Vital Signs Temp 97.8 F 08/21/20 07:45 Pulse 72 08/21/20 07:45 Resp 17 08/21/20 07:45 BP 112/68 08/21/20 07:45 Pulse Ox 96 08/21/20 07:45 08/20/20 08/21/20 08/21/20 22:59 06:59 14:59 Intake Total 1075 / 1075 60 / 1135 Output Total 0 / 0 300 / 300 Balance 1075 / 1075 60 / 1135 -300 / -300 Weight last 48 hrs Weight 198 lb 12.8 oz Physical Exam Narrative: EXAM NARRATIVE: Patient is conscious alert oriented X3 BMI 34 Head and neck examination PERRLA no masses no cervical lymphadenopathy no jaundice Right upper chest hemodialysis tunneled catheter in place without complications. Abdomen nontender nondistended soft no organomegaly guarding or rigidity/no signs of peritonitis Dressing is dry Right groin femoral triple-lumen line in place without complications Physical examination was done in the presence of female commercial insulator nursing staff Emani Data : 08/21/20 05:26 08/21/20 05:26 A&P Assessment and plan (1) End stage renal disease: Patient is a status post placement of right upper chest tunneled hemodialysis catheter and explantation of peritoneal dialysis catheter and placement of right femoral vein central line. 08/20/2020 Plan of care; From surgical standpoint of view patient can have renal diabetic diet. Hemodialysis catheter can be used by nephrology service Can DC abdominal incision dressings tomorrow and leave open to air with the plan to DC skin travis in 10 days from surgery Right femoral central line can be discontinued once hospitalist is not in need for it. Can resume Plavix tomorrow from surgical standpoint of view Please call for any questions or concerns Assurance and education All questions have been answered and all concerns have been addressed to patient's satisfaction. Thank you for consulting general surgery to participate taking care Mino Status: Acute Attestations Medical Necessity Statement*: Inpatient hospitalization passing 2 midnights for dialysis access placement with explantation of peritoneal dialysis and medical optimization Time Spent in Patient Care: (>than 50% of time spent in counselling and/or direct pt care on unit) . Coding Level of Care Code Acute Brine Plant Operator for Chg Fwd Diagnoses End stage renal disease N18.6
[2020-08-21] MEDS: pantoprazole DR 40 mg Tablet PO (08:31)
[2020-08-21] MEDS: levothyroxine 112 mcg Tablet 224 MCG PO (08:31)
[2020-08-21] MEDS: midodrine 5 mg TABLET PO ×3 (08:32→21:13)
[2020-08-21] MEDS: aspirin 81 mg Chew Tablet PO (08:32)
--- NOTE | 2020-08-21 09:07 | PC.NURSE ---
DIALYSIS PT IN DIALYSIS
[2020-08-21 10:59] LABS: Glucose Point of Care 137 mg/dL (70-110)
--- NOTE | 2020-08-21 11:13 | PM.PN ---
Subjective Subjective: Interval history: first HD today, 2 hrs, BP stable, cath flow good Medications: Reviewed: Yes Vitals/I&O/Wt Last Vital Signs Temp 97.8 F 08/21/20 07:45 Pulse 72 08/21/20 07:45 Resp 17 08/21/20 07:45 BP 112/68 08/21/20 07:45 Pulse Ox 96 08/21/20 07:45 08/20/20 08/21/20 08/21/20 22:59 06:59 14:59 Intake Total 1075 / 1075 60 / 1135 120 / 120 Output Total 0 / 0 300 / 300 Balance 1075 / 1075 60 / 1135 -180 / -180 Weight last 48 hrs Weight 90.174 kg Data : 08/21/20 05:26 08/21/20 05:26 Other Labs: phos 5.7, Mg 1.6, vanco 19 A&P Additional A&P Information 1. ESRD, now on HD 2. MRSE Peritonitis, will dose vancomycin 500 mg IV QHD x 2 more weeks 3. Anemia, stable, change to IV epogen 2000u at HD 4. Hypotension, takes midodrine TID 5. Hypothyroidism with elevated TSH. Plan: 3 hour HD tomorrow. Should be stable for discharge after dialysis tomorrow. Please proceed with referral for outpatient HD. Attestations Medical Necessity Statement*: see above Time Spent in Patient Care: 16 - 35 minutes Coding Level of Care Code Acute Embedded Software Manager for Maris Braden
--- NOTE | 2020-08-21 11:33 | P.PN_ITS ---
Subjective Subjective: Interval history: Patient was seen and examined this morning.No acute event overnight. Received hemodialysis today for 2-hour. Tolerated hemodialysis well, BP has remained stable. Medications: Reviewed: Yes Medication Review Details: reviewed Vitals/I&O/Wt Last Vital Signs Temp 97.8 F 08/21/20 07:45 Pulse 72 08/21/20 07:45 Resp 17 08/21/20 07:45 BP 112/68 08/21/20 07:45 Pulse Ox 96 08/21/20 07:45 08/20/20 08/21/20 08/21/20 22:59 06:59 14:59 Intake Total 1075 / 1075 60 / 1135 120 / 120 Output Total 0 / 0 300 / 300 Balance 1075 / 1075 60 / 1135 -180 / -180 Weight last 48 hrs Weight 90.174 kg Physical Exam Const: COMMON NORMALS: patient oriented x3 HENMT: COMMON NORMALS: normocephalic and atraumatic HEAD & SCALP: normocephalic and atraumatic Resp: COMMON NORMALS: clear to auscultation bilaterally EFFORT & INSPECTION: Yes symmetric chest movement AUSCULTATION: clear to auscultation bilaterally Cardio: COMMON NORMALS: regular rate, regular rhythm, S1 normal heart sound present, S2 normal heart sound present, No gallops present (Cardio), No murmurs present (Cardio), No rub (Cardio) and Peripheral pulses 2+ throughout RATE: regular rate RHYTHM: regular rhythm HEART SOUNDS: S1 normal heart sound present and S2 normal heart sound present PERIPHERAL PULSES: Peripheral pulses 2+ throughout GI: COMMON NORMALS: Normal to inspection, nondistended, normoactive bowel sounds present, Soft to palpation, non-tender, No hepatosplenomegaly present and no masses AUSCULTATION: Yes normoactive bowel sounds PALPATION: Yes Soft to palpation and Yes No hepatosplenomegaly present RECTAL EXAM: deferred Extremity: COMMON NORMALS: no clubbing, cyanosis or edema and no pedal edema Neuro: COMMON NORMALS: patient oriented x3 Data : 08/21/20 05:26 08/21/20 05:26 A&P Assessment and plan (1) Peritonitis associated with peritoneal dialysis: MRSE Peritonitis: cell count at 2800, Gram stain thus far negative, culture with coag negative staph ( MRSE ). MRSE Peritonitis, per renal she will receive vancomycin 500 mg IV QHD x 2 more weeks. Overall picture was consistent with PD peritonitis Initially she was on IV cefepime as blood culture remained negative, no other organisms isolated from peritoneal fluid it was discontinued. Intraperitoneal vancomycin per renal recommendations ( received IP vanco 08/15/20 and 08/17/20) Given that this is recurrent PD peritonitis (2nd confirmed episode, potentially 3rd given bacteremia from abdominal source in 07/2020) , I.D recommend current PD catheter removal. s/p HD catheter placement on 08/20 initially Plavix was held for x5d per surgery rec. Plan is to resume Plavix. S/P PD catheter removal on 08/20 S/P Rt I.J Tunneled catheter placement.She will resume with H/D. Output hemodialysis referral. Status: Acute (2) Diabetes mellitus: Continue high-dose insulin sliding scale, improved fingersticks today Status: Acute (3) Gastroparesis due to DM: Patient known to have gastroparesis with complaints of nausea vomiting frequently This is currently poorly controlled. Continue alternating Zofran and Reglan Diet advancement precluded by persisting nausea Status: Chronic (4) Major depression, recurrent: Status: Chronic Qualifiers: Active/Remission status: currently active Major depression episode severity: severe Psychotic features: without psychotic features Qualified Code(s): F33.2 - Major depressive disorder, recurrent severe without psychotic features Additional A&P Information End-stage renal disease on peritoneal dialysis, plan to transition to hemodialysis, removal of PD catheter, general surgery consulted. Hold Plavix. Elevated troponins in the range of 120s, serially negative delta's, less concerning for AMI, denies any chest pain, no acute ST-T wave changes. DVT prophylaxis Heparin Full code Attestations Medical Necessity Statement*: Patient needs to be in hospital for management of MRSE peritonitis.continued H/D. Coding Level of Care Code Acute Banana Ripening Room Supervisor for [facility] Fwd Diagnoses Peritonitis associated with peritoneal dialysis T85.71XA Diabetes mellitus E11.9 Gastroparesis due to DM E11.43; K31.84 Major depression, recurrent F33.2 Active/Remission status: currently active Major depression episode severity: severe Psychotic features: without psychotic features
[2020-08-21 11:58] VITALS: BP 106/69; PULSE 81; RESP 18; TEMP 36.6; O2SAT 95
[2020-08-21 15:51] VITALS: BP 109/72; PULSE 76; RESP 18; TEMP 36.6; O2SAT 96
--- NOTE | 2020-08-21 16:43 | PC.SOCIAL ---
imm* IMM updated with patient, initialled in chart.
[2020-08-21 16:56] LABS: Glucose Point of Care 176 mg/dL (70-110)
--- NOTE | 2020-08-21 18:03 | PC.NURSE ---
BLADDER SCAN BLADDER SCAN PERFORMED DUE TO NO URINE OUTPUT SINCE 0700 STRAIGHT CATH - PT DOES NOT FEEL THE URGE TO VOID - SCANNED 48ML AT THE MOST IN BLADDER - RIGHT FEMORAL LINE FLUSHED PER PROTOCOL PER THIS NURSE
--- NOTE | 2020-08-21 18:12 | PC.NURSE ---
PM MEDS BOTH HEPARIN AND INSULIN VERIFIED PER THIS NURSE AND SCANNED - SCAN DID NOT SAVE ' SYSTEM ERROR' - MANUAL BARCODE
[2020-08-21 19:39] VITALS: BP 116/73; PULSE 74; RESP 18; TEMP 36.8; O2SAT 95
[2020-08-21 20:31] LABS: Glucose Point of Care 142 mg/dL (70-110)
[2020-08-21] MEDS: atorvastatin 40 mg Tablet PO (21:13)
[2020-08-21] MEDS: dorzolamide/timolol Op Soln 10 mL Btl 1 DROP EYE-LEFT (21:14)
[2020-08-22] VITALS (7 sets, daily range): BP systolic 99–112; BP diastolic 65–74; PULSE 65–77; RESP 16–18; TEMP 36.7–37.4; O2SAT 92–97
--- NOTE | 2020-08-22 01:06 | PC.NURSE ---
Bladder Scan Pt. bladder scanned at this time with max volume of 88mL shown.
[2020-08-22] MEDS: heparin 5,000 unit/mL INJ 1 mL 5000 UNIT SUBCUT (06:11)
--- NOTE | 2020-08-22 06:32 | PC.NURSE ---
Bladder Scan Pt. bladder scan shows max of 120mL at this time.
[2020-08-22 06:40] LABS: Glucose Point of Care 125 mg/dL (70-110)
--- NOTE | 2020-08-22 07:43 | PC.NURSE ---
Patient to Dialysis at this time.
--- NOTE | 2020-08-22 08:58 | PC.SOCIAL ---
*IMM* Patient received Updated Important Message from Medicare.
--- NOTE | 2020-08-22 10:09 | P.PN_ITS ---
Subjective Subjective: Interval history: Patient is more awake today and seems to be responding to hemodialysis. Medications: Reviewed: Yes Vitals/I&O/Wt Last Vital Signs Temp 98.3 F 08/22/20 07:14 Pulse 68 08/22/20 07:14 Resp 18 08/22/20 07:14 BP 105/66 08/22/20 07:14 Pulse Ox 94 08/22/20 07:14 08/21/20 08/22/20 08/22/20 22:59 06:59 14:59 Intake Total 120 / 360 200 / 200 Output Total 0 / 300 Balance 120 / 60 0 / 60 200 / 200 Physical Exam Narrative: EXAM NARRATIVE: Patient is conscious alert oriented X3 BMI 34 Head and neck examination PERRLA no masses no cervical lymphadenopathy no jaundice Right upper chest hemodialysis tunneled catheter in place without complications. Abdomen nontender nondistended soft no organomegaly guarding or rigidity/no signs of peritonitis Dressing was taken down by me and the incisions are clean dry and intact and skin travis in place Right groin femoral triple-lumen line in place without complications Physical examination was done in the presence of female healthcare consultant dialysis nursing staff Data : 08/21/20 05:26 08/21/20 05:26 A&P Assessment and plan (1) End stage renal disease: Patient is a status post placement of right upper chest tunneled hemodialysis catheter and explantation of peritoneal dialysis catheter and placement of right femoral vein central line. 08/20/2020 Plan of care; Return to surgery office in 10 days to DC skin travis Can resume Plavix from surgical standpoint of view Please call for any questions or concerns Assurance and education All questions have been answered and all concerns have been addressed to patient's satisfaction. Thank you for consulting general surgery to participate taking care Mino Status: Acute Attestations Medical Necessity Statement*: Inpatient hospitalization passing 2 midnights for hemo-dialysis and medical optimization. Time Spent in Patient Care: (>than 50% of time spent in counselling and/or direct pt care on unit) . Coding Level of Care Code Acute Fiberglass Auto Body Repairer for Marsi Braden Diagnoses End stage renal disease N18.6
[2020-08-22] MEDS: heparin, porcine 1,000 unit/mL INJ 10 mL 1000 UNIT IV (10:55)
--- NOTE | 2020-08-22 11:10 | PC.NURSE ---
Patient returned from Dialysis at this time. 1 liter was removed and that was patient's goal.
[2020-08-22 11:19] LABS: Glucose Point of Care 137 mg/dL (70-110)
[2020-08-22] MEDS: levothyroxine 112 mcg Tablet 224 MCG PO (11:19)
[2020-08-22] MEDS: pantoprazole DR 40 mg Tablet PO (11:19)
[2020-08-22] MEDS: dorzolamide/timolol Op Soln 10 mL Btl 1 DROP EYE-LEFT (11:19)
[2020-08-22] MEDS: aspirin 81 mg Chew Tablet PO (11:19)
[2020-08-22] MEDS: neomycin-poly-bacitracin oint 28 gm 1 APPLIC TOPICAL (11:23)
[2020-08-22] MEDS: midodrine 5 mg TABLET PO (11:23)
--- NOTE | 2020-08-22 14:00 | PC.NURSE ---
Right Femoral line removed at this time. Catheter intact. 15 minutes of pressure applied. No bleeding noted. Pressure dressing applied. Patient tolerated well.
--- NOTE | 2020-08-22 14:32 | P.DS_ITS ---
Discharge Providers Date of Admission: 08/14/20 12:24 Date of Discharge: August 22, 2020 Attending Provider at Admission: Felicia Singh MD Attending Provider at Discharge: Joe Conner MD Primary Care Provider: Yovany Leonardo MD Diagnoses at Discharge Discharge Diagnosis (1) End stage renal disease: Status: Acute (2) Peritonitis associated with peritoneal dialysis: Status: Acute (3) Diabetes mellitus: Status: Acute Reason for Visit Reason for Visit: vomiting, cannot eat or drink Hospital Course Hospital Course 55 year old female with multiple comorbidities as listed below in past medical history, notably end-stage renal disease on peritoneal dialysis, diabetes mellitus, gastroparesis who presented to ER complaining of persistent nausea vomiting, inability to keep any food down. Also reports abdominal pain. Reportedly has a history of PD peritonitis in June of this year. Current PD catheter has been in place since 4 years. Recent history significant for Aci netobacter bacteremia on July 17, 2020, treated with 1 month of levofloxacin based on susceptibility, renally dosed.. Source was likely to be GI translocation from diverticulitis which was evidenced on CT at the time, concomitant urinary and peritoneal cultures were negative at the time.She was admitted initially for the management of uncontrolled hyperglycemia as well as Gastroparesis due to DM: During this hospital stay she was also managed for MRSE Peritonitis: Peritoneal fluid cell count at 2800, culture coag negative staph ( MRSE). She received intraperitoneal vancomycin per renal recommendations.She will Continue to receive vancomycin 500 mg IV QHD x 2 more weeks.Per Renal Recommendations. Initially she was on IV cefepime as blood culture remained negative, no other organisms isolated from peritoneal fluid it was discontinued. Given that this was recurrent PD peritonitis (2nd confirmed episode, potentially 3rd given bacteremia from abdominal source in 07/2020) , I.D recommend current PD catheter removal. s/p right IJ tunneled temporary HD catheter placement on 08/20.initially Plavix was held for x5d per surgery rec. Plavix will be resumed on discharge. she received H/D through the through the tunneled catheter. She will follow Surgery in next 7 1- 10 days for the removal of travis. Patient responded well to the above medical management and is being discharged in stable condition to [facility]. She will continue to follow with her securities supervisor as outpatient as well as her PCP and cardiology as outpatient. Physical Exam Const: COMMON NORMALS: patient oriented x3 HENMT: COMMON NORMALS: normocephalic and atraumatic HEAD & SCALP: normocephalic and atraumatic Resp: COMMON NORMALS: clear to auscultation bilaterally EFFORT & INSPECTION: Yes symmetric chest movement AUSCULTATION: clear to auscultation bilaterally Cardio: COMMON NORMALS: regular rate, regular rhythm, S1 normal heart sound present, S2 normal heart sound present, No gallops present (Cardio), No murmurs present (Cardio), No rub (Cardio) and Peripheral pulses 2+ throughout RATE: regular rate RHYTHM: regular rhythm HEART SOUNDS: S1 normal heart sound present and S2 normal heart sound present PERIPHERAL PULSES: Peripheral pulses 2+ throughout GI: COMMON NORMALS: Normal to inspection, nondistended, normoactive bowel sounds present, Soft to palpation, non-tender, No hepatosplenomegaly present and no masses AUSCULTATION: Yes normoactive bowel sounds PALPATION: Yes Soft to palpation and Yes No hepatosplenomegaly present RECTAL EXAM: deferred Extremity: COMMON NORMALS: no clubbing, cyanosis or edema and no pedal edema Neuro: COMMON NORMALS: patient oriented x3 Discharge Data Data Completed and Pending: Completed Studies During Hospitalization Category Date Time Status CT abdomen pelvis w con* [id number] Stat Cat Scan 08/14/20 08:55 Completed XR chest 1V sandra ble [id number] Stat Exams 08/14/20 08:55 Completed XR chest 1V sandra ble [id number] Urgent Exams 08/20/20 16:21 Completed Pathology: Surgic al [PTH] Routine Pth 08/20/20 16:09 Completed Pending at discharge Category Date Time Status CDIFF [Clostridio ides Difficile PCR ] Routine Lab 08/18/20 11:36 Ordered Labs from last 24 hours 08/22/20 08/22/20 08/21/20 11:09 06:17 19:39 POC Glucose 137 H 125 H 142 H 08/21/20 16:52 POC Glucose 176 H Vitals: Last Vital Signs Temp 98.9 F 08/22/20 11:46 Pulse 77 08/22/20 11:46 Resp 16 08/22/20 11:46 BP 99/65 08/22/20 11:46 Pulse Ox 96 08/22/20 11:46 Discharge Plan Discharge Patient Disposition: [facility] Condition: Stable Prescriptions: Continued nitroglycerin 0.4 mg tablet, sublingual 0.4 mg SUBLINGUAL Q5M PRN (Reason: Chest Pain) Qty: 25 RF: 6 clopidogrel 75 mg tablet 75 mg PO DAILY@08 Qty: 90 RF: 3 Lantus Solostar U-100 Insulin 100 unit/mL (3 mL) insulin pen 50 unit SUBCUT BID@08,20 Qty: 15 RF: 12 aspirin 81 mg Tablet,Chewable 81 mg PO DAILY@08 RF: 0 Auryxia 210 mg iron tablet See Rx Instructions .ROUTE .COMPLEX RF: 0 pantoprazole 40 mg tablet,delayed release (DR/EC) 40 mg PO DAILY@08 RF: 0 Rocklatan 0.02-0.005 % Drops 1 drp OPHTHALMIC (EYE) DAILY@20 RF: 0 sennosides-docusate sodium 8.6-50 mg tablet 2 tab PO BID PRN (Reason: Constipation) RF: 0 sevelamer carbonate 800 mg tablet 800 mg PO TID RF: 0 atorvastatin 40 mg Tablet 40 mg PO DAILY@20 RF: 0 cholecalciferol (vitamin D3) [Vitamin D3] 25 mcg (1,000 unit) Tablet 25 mcg PO DAILY@08 RF: 0 midodrine 5 mg Tablet 5 mg PO TID@08,,20 RF: 0 potassium chloride 10 mEq Tablet Extended Release 10 meq PO DAILY@08 RF: 0 levothyroxine 112 mcg tablet 224 mcg PO DAILY@0800 RF: 0 metoclopramide HCl [Reglan] 5 mg tablet 5 mg PO DAILY Qty: 30 RF: 0 multivitamin [Multiple Vitamins] Tablet 1 tab PO DAILY@08 RF: 0 paricalcitol [Zemplar] 1 mcg capsule 1 mcg PO DAILY RF: 0 coenzyme Q10 [CoQ-10] 100 mg Capsule 100 mg PO DAILY@08 RF: 0 omega 0-ykq-wfg-fish oil [Fish Oil] 300-1,000 mg Capsule,Delayed Release(Dr/Ec) 1 cap PO BID@08,20 RF: 0 brimonidine 0.2 % drops 1 drp ophthalmic (eye) BID@08,20 RF: 0 dorzolamide-timolol 22.3-6.8 mg/mL drops 1 drp ophthalmic (eye) BID@08,20 RF: 0 Discontinued levofloxacin 250 mg tablet 250 mg PO Q48H 28 Days Qty: 14 RF: 0 Discharge Orders: Discharge Order (Routine); Ordered 08/22/20 Ordered By: Joe Conner Referrals: Ifeanyi Still MD [Physician] - 09/02/20 10:00 am (Return to surgery office in 7 to 10 days to DC skin travis and follow-up) Soraya Ignacio MD [Physician] - 09/24/20 10:15 am Discharge Diet: Diabetic Discharge Activity: Resume usual activity Patient Instructions: Hemodialysis (GEN), Dialysis Diet (GEN), Acute Wound Care (GEN), Ascites (GEN) Discharge Attestations Time Spent in Discharge Care*: less than 30 min Status at Discharge: Cognitive status at discharge: cognitively intact , Behavioral status at discharge: cooperative , Quality Metrics Clinical Quality Measures During this hospital stay, did patient experience: None Coding Level of Care Code Acute Chg FW DC note Diagnoses End stage renal disease N18.6 Peritonitis associated with peritoneal dialysis T85.71XA Diabetes mellitus E11.9
--- NOTE | 2020-08-22 15:53 | PC.NURSE ---
Report to Dustin LORENZ at [facility] at this time.
--- NOTE | 2020-08-22 16:39 | PC.NURSE ---
Patient wheel chaired to [employer] transport van at this time to be taken to [facility]. Patient sent in her own wheel chair. Patient had her glasses and Jeromy Bear along with her cell phone and program instructor. Patient is A&Ox3. Respirations even and non-labored on 3 liters via NC.
--- NOTE | 2020-08-22 17:04 | PM.PN ---
Subjective Subjective: Interval history: Ms. Herzog was seen and examined on dialysis today. She is tolerating therapy well. Hemodynamics are robust. She denies abdominal pain, nausea and vomiting on interview at this time. Vitals/I&O/Wt Last Vital Signs Temp 99.3 F 08/22/20 16:38 Pulse 71 08/22/20 16:38 Resp 16 08/22/20 16:38 BP 103/67 08/22/20 16:38 Pulse Ox 94 08/22/20 16:38 08/22/20 08/22/20 08/22/20 06:59 14:59 22:59 Intake Total 560 / 560 Output Total 0 / 300 Balance 0 / 60 560 / 560 Physical Exam Narrative: EXAM NARRATIVE: Constitutional: Awake, comfortable HEENT: Wet mucosa, no jvp, non icteric Lungs: Bilaterally clear without discernible wheeze, rales in all lung zones CVS: S1 S2, no murmurs Abdo: Soft, BS ok Ext 4: Minimal edema, peripheral perfusion with no cyanosis Neurological: Grossly non-focal Data : 08/21/20 05:26 08/21/20 05:26 A&P Additional A&P Information 1. ESRD Seen and examined on dialysis, currently on TTS schedule. If she remains in-house on Wednesday we will dialyze her again. Dose medications for GFR less than 15 on dialysis 2. PD peritonitis PD catheter now removed, currently receiving IV vancomycin for MRSE 3. Disposition for discharge today. Follow-up with outpatient radiation monitor in the outpatient dialysis clinic, Dr. Donahue. 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
== END 2020-08-22 16:42 | disposition skilled nursing facility (03) | DRG 907 ==
LOC: ER 08:53 → MEDSURG 12:58
PROVIDERS: Hospitalist; Internal Medicine; Surgery; Admitting Provider Student in an Organized Health Care Education/Training Program; Emergency Provider Family Medicine; PCP Internal Medicine; Visit Provider Internal Medicine
PROC: 0WPG03Z Removal of Infusion Device from Peritoneal Cavity, Open Approach (ICD-10-PCS; principal; 2020-08-20 11:05)
PROC: 0WPG03Z Removal of Infusion Device from Peritoneal Cavity, Open Approach (ICD-10-PCS; CPT 49422; 2020-08-20 11:05)
DX: T85.71XA Infection and inflammatory reaction due to peritoneal dialysis catheter, initial encounter (principal); N18.6 End stage renal disease; I13.2 Hypertensive heart and chronic kidney disease with heart failure and with stage 5 chronic kidney disease, or end stage renal disease; I50.32 Chronic diastolic (congestive) heart failure; F33.2 Major depressive disorder, recurrent severe without psychotic features; E87.1 Hypo-osmolality and hyponatremia; Y73.1 Therapeutic (nonsurgical) and rehabilitative gastroenterology and urology devices associated with adverse incidents; E11.22 Type 2 diabetes mellitus with diabetic chronic kidney disease; E11.65 Type 2 diabetes mellitus with hyperglycemia; Z99.2 Dependence on renal dialysis; E11.43 Type 2 diabetes mellitus with diabetic autonomic (poly)neuropathy; E11.51 Type 2 diabetes mellitus with diabetic peripheral angiopathy without gangrene; K31.84 Gastroparesis; F41.9 Anxiety disorder, unspecified; H81.10 Benign paroxysmal vertigo, unspecified ear; I25.10 Atherosclerotic heart disease of native coronary artery without angina pectoris; Z95.5 Presence of coronary angioplasty implant and graft; I65.29 Occlusion and stenosis of unspecified carotid artery; G89.29 Other chronic pain; M53.3 Sacrococcygeal disorders, not elsewhere classified; F40.240 Claustrophobia; K21.9 Gastro-esophageal reflux disease without esophagitis; E78.5 Hyperlipidemia, unspecified; E03.9 Hypothyroidism, unspecified; Z79.4 Long term (current) use of insulin; G47.33 Obstructive sleep apnea (adult) (pediatric); Z89.432 Acquired absence of left foot; Z86.73 Personal history of transient ischemic attack (TIA), and cerebral infarction without residual deficits; E55.9 Vitamin D deficiency, unspecified; Z89.511 Acquired absence of right leg below knee; Z79.02 Long term (current) use of antithrombotics/antiplatelets; K59.00 Constipation, unspecified; E83.42 Hypomagnesemia; E87.6 Hypokalemia; D63.1 Anemia in chronic kidney disease
CPT/HCPCS: 36415; 36416; 36600; 51702; 51798; 71045; 74177; 77001; 80048; 80051; 80053; 80202; 80500; 81001; 82009; 82330; 82550; 82805; 82962; 83605; 83690; 83735; 84100; 84443; 84484; 85025; 86706; 86803; 87040; 87070; 87075; 87077; 87186; 87205; 87340; 87635; 88300; 89050; 90935; 93005; 96361; 96365; 96372; 96375; 96376; 97161; 99285; C1750; J0692; J0696; J1644; J1815; J2060; J2250; J2270; J2405; J2704; J2765; J3010; J3370; J3475; J3480; J3490; J7030; P9047; Q0164; Q3014; Q4081; Q9967

== ENCOUNTER 2020-10-02 16:07 | Outpatient (CLI) | payer MEDICARE, MEDICAID, SELFPAY ==
--- NOTE | 2020-10-02 | XR_ITS ---
WS: [id number] Exam: XR chest 1V [id number] Date/Time of Exam: 10/02/2020 4:26 PM Reason For Exam: CATHATER NOT WORKING Comparison 08/20/2020. The lungs are clear and fully expanded. Mild bilateral plaque atelectasis. Normal cardiomediastinal s tructures and bony elements. A right-sided double-lumen dialysis catheter is noted. The lower limb of the catheter ends in the lower one third of the SVC. XR/XR chest 1V [id number] IMPRESSION: 1. No acute process noted. 2. Bilateral plaque atelectasis.
== END 2020-10-02 16:08 | disposition home or self-care (01) ==
PROVIDERS: PCP Internal Medicine; Visit Provider Surgery
DX: T82.898A Other specified complication of vascular prosthetic devices, implants and grafts, initial encounter (principal); X58.XXXA Exposure to other specified factors, initial encounter
CPT/HCPCS: 71045

== ENCOUNTER → 2020-10-03 09:25 | Outpatient (BNVA) | payer MEDICARE, MEDICAID, SELFPAY | PROVIDERS: PCP Internal Medicine; Visit Provider Surgery | DX: Z99.2 Dependence on renal dialysis (principal); Z20.822 Contact with and (suspected) exposure to COVID-19 | CPT/HCPCS: 87635 ==

== ENCOUNTER → 2020-10-04 07:01 | Day surgery (SDC) | payer MEDICARE, MEDICAID, SELFPAY ==
[2020-10-04 07:24] VITALS: BP 170/81; PULSE 66; RESP 18; TEMP 36.7; O2SAT 95
[2020-10-04 07:26] VITALS: BMI 31.6
[2020-10-04] MEDS: alteplase 1 mg/mL SDV 2 mL 2 MG INTRACATH (07:37)
--- NOTE | 2020-10-04 08:27 | PC.NURSE ---
0715 Pt to GI lab for Cathflo of hemodialysis cath to right chest. Upon assessment of cath, no dressing noted over catheter. Site cleaned using sterile technique and sorbaview shield dressing applied. Red port of cath assessed for blood return and noted with good blood return. 10 mL blood filled quickly upon aspiration. Cathflo 2 mg/2 mL instilled into red port of catheter. After 30 min, blood return checked and 10 mL blood aspirated without hesitancy into syringe. Dr. Still and Kelly Krueger, dialysis nurse, notified of results. Red port of cath flushed with 2.4 mL (1000 unit per mL) of heparin. Pt to go to dialysis following this appointment.
[2020-10-04] MEDS: heparin, porcine 1,000 unit/mL INJ 10 mL HE (08:33)
== END ==
PROVIDERS: PCP Internal Medicine; Visit Provider Surgery
DX: T82.898A Other specified complication of vascular prosthetic devices, implants and grafts, initial encounter (principal)
CPT/HCPCS: 36593; 96374; 96375; J1644; J2997

== ENCOUNTER 2020-11-13 17:38 | Observation (INO) | payer MEDICARE, MEDICAID, SELFPAY ==
[2020-11-13] VITALS (7 sets, daily range): BP systolic 159–185; BP diastolic 71–116; PULSE 58–60; RESP 16–24; TEMP 36.3; O2SAT 95–98; BMI 31.9
[2020-11-13 19:27] LABS: Glucose Point of Care 46 mg/dL (70-110)
--- NOTE | 2020-11-13 19:33 | W.ED.DIZZY ---
HPI - Dizziness General: Chief Complaint: Dizziness Stated Complaint: Dizzy/Hot Flashes Time Seen by Provider: 11/13/20 19:30 History of Present Illness: HPI Narrative: This patient is a 55-year-old female presents to the emergency department with complaint of dizziness. Patient states she believes that her sugar is low. Patient takes 50 units of insulin in the morning. Of Lantus long-acting insulin. Patient states she ate last ate was at lunch. Patient states she just feels like her sugar is low causing the dizziness. I triage patient's glucose at the bedside was 46. MD elicited complaint: dizziness Onset (ago): minute(s) Timing: gradual onset Severity: mild Description: room spinning , lightheadedness and off-balance Exacerbating factors: nothing Relieving factors: nothing Associated symptoms: Denies chest pain, chills, headache(s), nausea, palpitations or vomiting Associated neuro symptoms: Deny numbness in extremities Review of Systems General: Reports: 10 or more systems reviewed and unremarkable except in HPI and below Const: Denies: fever(s), chills, body aches or fatigue Eyes: Denies: change in vision or blurry vision ENMT: Denies: throat pain, hoarseness or mouth pain Card: Denies: chest pain, palpitations, irregular heart rhythm, edema, swelling of feet/ankles or lightheadedness Resp: Denies: dyspnea, productive cough, non-productive cough, wheezing or pain on inspiration GI: Denies: abdominal pain, nausea or vomiting : Denies: flank pain, difficulty voiding, dysuria, urinary frequency, urinary urgency or urinary hesitancy Musc: Denies: neck pain, back pain, extremity pain, extremity swelling, joint pain, joint swelling, joint redness, joint warmth or limited range of motion Skin/Breast: Denies: rash, pruritus, erythema or skin tenderness Neuro: Reports: dizziness; Denies: headache(s), numbness in extremities or weakness in extremities Psych: Denies: anxiety or depression PFS ED PFSH: Medical History Acute hyponatremia Anxiety BPPV (benign paroxysmal positional vertigo) CAD (coronary artery disease) Carotid stenosis Chronic diastolic CHF (congestive heart failure) Chronic left sacroiliac joint pain Claustrophobia Depression Diabetes Insulin-dependent Diabetes mellitus End stage renal disease ESBL (extended spectrum beta-lactamase) producing bacteria infection ESRD (end stage renal disease) Gastroparesis Gastroparesis due to DM GERD (gastroesophageal reflux disease) HTN (hypertension) Hyperlipidemia Hypothyroidism Insulin dependent diabetes mellitus Major depression, recurrent DOROTEO on CPAP Partial nontraumatic amputation of left foot (~06/2019) Peripheral vascular disease Peritonitis associated with peritoneal dialysis Phantom pain Suicidal ideation TIA (transient ischemic attack) Vitamin D deficiency Surgical History H/O hysterectomy with oophorectomy History of appendectomy History of heart artery stent History of hysterectomy History of left heart catheterization History of right below knee amputation Peritoneal dialysis catheter in place S/P cholecystectomy S/P PICC central line placement Status post amputation of toe Family History Denies family history of CAD (coronary artery disease) Clotting disorder Dementia Bleeding disorder Social History Smoking and tobacco status: never smoked Alcohol intake: never Household members: spouse and family History of recent travel: No Physical Exam Const: COMMON NORMALS: no acute distress, average body habitus, patient oriented x3, no limitations, healthy appearing, alert and well nourished HENMT: COMMON NORMALS: normocephalic, atraumatic, hearing grossly normal bilaterally, external ears normal, EAC's normal, TM's normal bilaterally, Normal external nose present, Normal nasal mucous membranes and turbinates present, moist oral mucous membranes, oropharynx normal, dentition normal and gingiva normal HEAD & SCALP: normocephalic and atraumatic NOSE: Normal external nose present and Normal nasal mucous membranes and turbinates present EXTERNAL EAR: Yes external ears normal EXTERNAL AUDITORY CANAL: EAC's normal TYMPANIC MEMBRANE: TM's normal bilaterally Neck/C-Spine: COMMON NORMALS: full ROM, no lymphadenopathy, supple, no meningeal signs, no JVD, Thyroid normal and No carotid bruits THYROID: Thyroid normal Chest: COMMONS NORMALS: normal inspection of the chest, normal palpation of entire chest wall, normal inspection of the breasts and normal palpation of the breasts Breast/axilla inspection: Yes normal inspection of the breasts BREAST/AXILLA PALPATION: Yes normal palpation of the breasts Resp: COMMON NORMALS: normal respiratory effort, No retractions, No use of accessory muscles, clear to auscultation bilaterally and percussion normal AUSCULTATION: clear to auscultation bilaterally PERCUSSION: percussion normal Cardio: COMMON NORMALS: no JVD, regular rate, regular rhythm, S1 normal heart sound present, S2 normal heart sound present, No gallops present (Cardio), No clicks present (Cardio), No murmurs present (Cardio), No rub (Cardio) and Peripheral pulses 2+ throughout RATE: regular rate RHYTHM: regular rhythm HEART SOUNDS: S1 normal heart sound present and S2 normal heart sound present PERIPHERAL PULSES: Peripheral pulses 2+ throughout GI: COMMON NORMALS: Normal to inspection, nondistended, normoactive bowel sounds present, Soft to palpation, non-tender, No hepatosplenomegaly present, no masses and no bruits PALPATION: Yes Soft to palpation and Yes No hepatosplenomegaly present : COMMON NORMALS: Yes no CVA tenderness BLADDER/KIDNEY EXAM: Yes no CVA tenderness Back/Pelvis: COMMON NORMALS: no CVA tenderness, thoracic and lumbar spine normal to inspection, no thoracic nor lumbar tenderness, thoraco-lumbar ROM normal and straight leg raise negative bilaterally Extremity: COMMON NORMALS: normal to inspection, full ROM, capillary refill normal, no joint enlargement, no clubbing, cyanosis or edema, no calf tenderness and no pedal edema Neuro: COMMON NORMALS: patient oriented x3 SENSORIUM/ORIENTATION: Yes alert MENINGEAL SIGNS: Yes no meningeal signs Course Reevaluation(s): Reevaluation #1: Patient with glucose monitoring closely every 30 minutes after initially given 2 A of D50 at the bedside. Glucose was greater than 350 and has trended down to be 146 at this time. We will start patient on D5 half-normal saline IV at 100 an hour continue to monitor glucose. Time: 21:12 Reevaluation #2: I did discuss at length with patient about concerns of continued hypoglycemia. Patient will be admitted for observation due to hypoglycemia. Patient has chronic renal failure and is a dialysis patient. Patient states understanding and agrees Time: 21:14 Consultations: Consultation #1: I did discuss at length with Dr. Jeronimo she is accepted this patient for admission, medical Time: 22:08 Vital Signs: Vital signs: Vital Signs Temperature 97.3 F L 11/13/20 18:11 Pulse Rate 58 L 11/13/20 18:11 Respiratory Rate 16 11/13/20 18:11 Blood Pressure 159/76 11/13/20 18:11 Pulse Oximetry 96 11/13/20 18:11 MDM - Dizziness MDM Narrative: Medical decision making narrative: This patient is a 55-year-old female presents to the emergency department with complaint of dizziness. Patient states she believes that her sugar is low. Patient takes 50 units of insulin in the morning. Of Lantus long-acting insulin. Patient states she ate last ate was at lunch. Patient states she just feels like her sugar is low causing the dizziness. I triage patient's glucose at the bedside was 46. Patient with glucose monitoring closely every 30 minutes after initially given 2 A of D50 at the bedside. Glucose was greater than 350 and has trended down to be 146 at this time. We will start patient on D5 half-normal saline IV at 100 an hour continue to monitor glucose. I did discuss at length with patient about concerns of continued hypoglycemia. Patient will be admitted for observation due to hypoglycemia. Patient has chronic renal failure and is a dialysis patient. Patient states understanding and agrees Lab Data: Labs: Lab Results 11/13/20 11/13/20 11/13/20 Range/Units 19:22 19:44 19:46 WBC (4.0-10.0) 10^3/ uL RBC (4.1-5.3) 10^6/u L Hgb (11.5-15.3) g/dL Hct (37.0-47.0) % MCV (81-99) fL MCH (28.0-34.0) pg MCHC (30.0-36.0) g/dL RDW (12.1-15.1) % Plt Count (130-400) 10^3/c mm MPV (7.4-10.4) fL Neut % (Auto) % Lymph % (Auto) % [place] % (Auto) % Eos % (Auto) % Baso % (Auto) % Neut # (Auto) (1.8-7.7) 10^3/u L Lymph # (Auto) (0.8-4.8) 10^3/u L [place] # (Auto) (0.2-0.9) 10^3/u L Eos # (Auto) (0.0-0.8) 10^3/u L Baso # (Auto) (0.0-0.1) 10^3/u L Nucleated RBC % (a uto) % Nucleated RBCs # /100WBC Sodium (136-145) mmol/L Potassium (3.5-5.1) mmol/L Chloride (98-107) mmol/L Carbon Dioxide (22-29) mmol/L Anion Gap (5-19) BUN (6-20) mg/dL Creatinine (0.5-0.9) mg/dL GFR Calculation (90-130) mL/min Glucose (65-115) mg/dL POC Glucose 46 L 354 H 332 H (70-110) mg/dL Calculated Osmolal ity (285-295) mOsm/k g Lactic Acid (0.5-2.2) mmol/L Calcium (8.5-10.5) mg/dL Total Bilirubin (0.15-1.2) mg/dL AST (0-32) U/L ALT (0-33) U/L Alkaline Phosphata se (35-105) IU/L Troponin T Baselin e (0-10) ng/L Total Protein (6.6-8.7) g/dL Albumin (3.5-5.2) g/dL Globulin (1.3-4.6) g/dL 11/13/20 11/13/20 11/13/20 Range/Units 20:00 20:13 20:13 WBC 6.7 (4.0-10.0) 10^3/ uL RBC 3.67 L (4.1-5.3) 10^6/u L Hgb 12.0 (11.5-15.3) g/dL Hct 37.2 (37.0-47.0) % MCV 101.4 H (81-99) fL MCH 32.7 (28.0-34.0) pg MCHC 32.3 (30.0-36.0) g/dL RDW 14.8 (12.1-15.1) % Plt Count 204 (130-400) 10^3/c mm MPV 11.4 H (7.4-10.4) fL Neut % (Auto) 74.3 % Lymph % (Auto) 14.5 % [place] % (Auto) 8.5 % Eos % (Auto) 1.8 % Baso % (Auto) 0.6 % Neut # (Auto) 4.96 (1.8-7.7) 10^3/u L Lymph # (Auto) 1.0 (0.8-4.8) 10^3/u L [place] # (Auto) 0.6 (0.2-0.9) 10^3/u L Eos # (Auto) 0.1 (0.0-0.8) 10^3/u L Baso # (Auto) 0.0 (0.0-0.1) 10^3/u L Nucleated RBC % (a uto) 0 % Nucleated RBCs # 0.0 /100WBC Sodium 138 (136-145) mmol/L Potassium 4.1 (3.5-5.1) mmol/L Chloride 98 (98-107) mmol/L Carbon Dioxide 21 L (22-29) mmol/L Anion Gap 23.1 H (5-19) BUN 41 H (6-20) mg/dL Creatinine 5.4 H (0.5-0.9) mg/dL GFR Calculation 8.2 L (90-130) mL/min Glucose 209 H (65-115) mg/dL POC Glucose (70-110) mg/dL Calculated Osmolal ity 302 H (285-295) mOsm/k g Lactic Acid (0.5-2.2) mmol/L Calcium 9.3 (8.5-10.5) mg/dL Total Bilirubin 0.4 (0.15-1.2) mg/dL AST 17 (0-32) U/L ALT 12 (0-33) U/L Alkaline Phosphata se 132 H (35-105) IU/L Troponin T Baselin e 82 H (0-10) ng/L Total Protein 6.7 (6.6-8.7) g/dL Albumin 3.9 (3.5-5.2) g/dL Globulin 2.8 (1.3-4.6) g/dL 11/13/20 11/13/20 11/13/20 Range/Units 20:18 20:30 21:08 WBC (4.0-10.0) 10^3/ uL RBC (4.1-5.3) 10^6/u L Hgb (11.5-15.3) g/dL Hct (37.0-47.0) % MCV (81-99) fL MCH (28.0-34.0) pg MCHC (30.0-36.0) g/dL RDW (12.1-15.1) % Plt Count (130-400) 10^3/c mm MPV (7.4-10.4) fL Neut % (Auto) % Lymph % (Auto) % [place] % (Auto) % Eos % (Auto) % Baso % (Auto) % Neut # (Auto) (1.8-7.7) 10^3/u L Lymph # (Auto) (0.8-4.8) 10^3/u L [place] # (Auto) (0.2-0.9) 10^3/u L Eos # (Auto) (0.0-0.8) 10^3/u L Baso # (Auto) (0.0-0.1) 10^3/u L Nucleated RBC % (a uto) % Nucleated RBCs # /100WBC Sodium (136-145) mmol/L Potassium (3.5-5.1) mmol/L Chloride (98-107) mmol/L Carbon Dioxide (22-29) mmol/L Anion Gap (5-19) BUN (6-20) mg/dL Creatinine (0.5-0.9) mg/dL GFR Calculation (90-130) mL/min Glucose (65-115) mg/dL POC Glucose 199 H 147 H (70-110) mg/dL Calculated Osmolal ity (285-295) mOsm/k g Lactic Acid 1.1 (0.5-2.2) mmol/L Calcium (8.5-10.5) mg/dL Total Bilirubin (0.15-1.2) mg/dL AST (0-32) U/L ALT (0-33) U/L Alkaline Phosphata se (35-105) IU/L Troponin T Baselin e (0-10) ng/L Total Protein (6.6-8.7) g/dL Albumin (3.5-5.2) g/dL Globulin (1.3-4.6) g/dL EKG Data^: EKG 1: Attestation: I personally reviewed and interpreted this EKG as follows: EKG interpretation date: 11/13/20 EKG interpretation time: 21:55 Interpretation: Sinus bradycardia heart rate 59 left axis deviation nonspecific EKG Discharge Plan Discharge Patient Disposition: Placed in Observation Clinical Impression: Hypoglycemia associated with diabetes, Phantom pain, Benign paroxysmal positional vertigo, End stage kidney disease, Dialysis patient Coding Level of Care Code ED Radiology Administrator for Chg Fwd Exam Comprehensive
[2020-11-13 19:47] LABS: Glucose Point of Care 332 mg/dL (70-110)
[2020-11-13 19:47] LABS: Glucose Point of Care 354 mg/dL (70-110)
[2020-11-13 20:15] LABS: Basophils % 0.6 %; Eosinophils # 0.1 10^3/uL (0.0-0.8); Eosinophils % 1.8 %; Hematocrit 37.2 % (37.0-47.0); Lymphocytes % 14.5 %; Mean Corpuscular HGB Conc 32.3 g/dL (30.0-36.0); Mean Corpuscular Hemoglobin 32.7 pg (28.0-34.0); Mean Corpuscular Volume 101.4 fL (81-99); Mean Platelet Volume 11.4 fL (7.4-10.4); Monocytes # 0.6 10^3/uL (0.2-0.9); Monocytes % 8.5 %; Neutrophils # 4.96 10^3/uL (1.8-7.7); Neutrophils % 74.3 %; Nucleated Red Blood Cells % 0 %; Platelet Count 204 10^3/cmm (130-400); Red Blood Count 3.67 10^6/uL (4.1-5.3); Red Cell Distribution Width 14.8 % (12.1-15.1); White Blood Count 6.7 10^3/uL (4.0-10.0)
[2020-11-13 20:33] LABS: Glucose Point of Care 199 mg/dL (70-110)
[2020-11-13 20:52] LABS: Alanine Aminotransferase 12 U/L (0-33); Albumin Level 3.9 g/dL (3.5-5.2); Alkaline Phosphatase 132 IU/L (35-105); Anion Gap 23.1 (5-19); Aspartate Amino Transferase 17 U/L (0-32); Blood Urea Nitrogen 41 mg/dL (6-20); Calcium 9.3 mg/dL (8.5-10.5); Carbon Dioxide 21 mmol/L (22-29); Chloride 98 mmol/L (98-107); Globulin 2.8 g/dL (1.3-4.6); Glomerular Filtration Rate 8.2 mL/min (90-130); Glucose 209 mg/dL (65-115); Osmolality Calculated 302 mOsm/kg (285-295); Potassium 4.1 mmol/L (3.5-5.1); Sodium 138 mmol/L (136-145); Total Bilirubin 0.4 mg/dL (0.15-1.2); Total Protein 6.7 g/dL (6.6-8.7)
[2020-11-13 20:53] LABS: Lactic Sepsis W/Reflex 1.1 mmol/L (0.5-2.2)
[2020-11-13 21:11] LABS: Glucose Point of Care 147 mg/dL (70-110)
--- NOTE | 2020-11-13 21:37 | ECG_ITS ---
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 Measurements Intervals [place] Rate: 59 P: -49 MD: 199 QRS: -37 QRSD: 82 T: 3 QT: 428 QTc: 426 Interpretive Statements SINUS BRADYCARDIA MARKED LEFT AXIS DEVIATION [QRS AXIS < -30] PATTERN CONSISTENT WITH PULMONARY DISEASE INFERIOR MYOCARDIAL INFARCTION [40+ ms Q WAVE AND/OR ST/T ABNORMALITY IN II/aVF], PROBABLY OLD WARNING: DATA QUALITY MAY AFFECT INTERPRETATION Compared to ECG 08/14/2020 13:13:47 Ectopic atrial rhythm no longer present Myocardial infarct finding still present Electronically Signed On 11-14-2020 17:06:07 CDT by Dong Pitt M.D. [email or web address]
[2020-11-13 21:54] LABS: Troponin(5th) Baseline 82 ng/L (0-10)
[2020-11-13 22:34] LABS: Glucose Point of Care 97 mg/dL (70-110)
[2020-11-13 23:17] LABS: Add Urine Microscopic? YES; Bilirubin Urine Neg (Negative); Blood Urine 3+ (Negative); Glucose Urine UA 1+ (Normal); Ketones Urine Negative (Negative); Leukocyte Esterase Urine 2+ (Negative); Nitrate Urine Negative (Negative); Protein Urine 3+ (Negative); Urine Appearance Cloudy (CLEAR); Urine Color Yellow (Yellow); Urobilinogen Urine Norm (Negative); pH Urine 7 (5-7)
[2020-11-13 23:20] LABS: Bacteria Urine 4+ /hpf; WBC Urine TOO NUMEROUS TO CNT /hpf (0-5)
[2020-11-13 23:24] LABS: Amorphous Sediment Urine 4+ /hpf
[2020-11-13 23:25] LABS: Add Urine Culture? Yes
--- NOTE | 2020-11-13 23:37 | ECG_ITS ---
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 Measurements Intervals [place] Rate: 58 P: MS: QRS: -43 QRSD: 86 T: 21 QT: 432 QTc: 425 Interpretive Statements SINUS BRADYCARDIA MARKED LEFT AXIS DEVIATION [QRS AXIS < -30] PATTERN CONSISTENT WITH PULMONARY DISEASE Compared to ECG 11/13/2020 22:01:01 Myocardial infarct finding no longer present Electronically Signed On 11-14-2020 17:07:33 CDT by Dong Pitt M.D. [email or web address]
[2020-11-13 23:39] LABS: Troponin 5 2HR 65.06 ng/L (0-10)
--- NOTE | 2020-11-13 23:44 | P.HP_ITS ---
Providers/Chief Complaint Admitting Physician: Neeta Jeronimo MD Primary Care Provider: Yovany Leonardo MD Chief Complaint: Dizziness History of Present Illness Rizwana Herzog is a 55 year old female who presented to the emergency room with chief complaint of dizziness. ER notes indicate that she thought that her blood sugar might be low but she denies concern about low blood sugars at the time of my evaluation. She says that her blood sugars have been doing okay at home. Here however her initial blood sugar was in the 40s. Patient received a couple of amps of D50 and was monitored with drop in blood sugars recurrently thereafter back into the 70s quite quickly. She was put on D5W at 100 cc an hour and request was made for admission. Patient has longstanding issues with vertigo. She says that was been going on the last 2 weeks is different than that. She was unable to get up out of bed today and make it to dialysis. She has had similar presentations in the past so difficult to discern exactly what new and what is not. She has not had recent fever. Denies headache or neck pain. Denies vision changes associated with the dizziness. She has not had any nausea or vomiting this time which is the big difference for her compared to the vertigo that she normally has. She denies any numbness or paresthesias that are new. Denies any focal weakness on one side or the other. Not having ongoing dizziness at rest. Says she just has a sensation of things spinning around her. She did not have anything to try to take at home for this.She saw Nabila Hall on November 07 and I do not see any documentation of her reporting dizziness at that point in time. She denies any new sores on her foot or her stump. Given the hypoglycemia requiring intervention she is being admitted for further care. Review of Systems Const: Denies: fever(s), chills, change in appetite or change in weight Eyes: Reports: blurry vision (Sometimes) ENMT: Denies: throat pain or nasal congestion Card: Reports: other (Dialysis catheter is in place and intact); Denies: chest pain, palpitations or edema Resp: Denies: dyspnea, productive cough or non-productive cough GI: Denies: abdominal pain, nausea, vomiting, diarrhea, constipation, hematochezia or melena Musc: Reports: other (Left upper extremity healing well from fistula) Skin/Breast: Denies: rash, pruritus or new lesions Neuro: Reports: dizziness and other (Denies any new numbness or paresthesias); Denies: headache(s), weakness in extremities, lack of coordination, difficulty walking, frequent falls, vertigo or involuntary movements Psych: Denies: anxiety or depression Refugio/Lymph: Denies: easy bruising or easy bleeding Medications/Allergies Home Medications Medication Instructions Recorded Confirmed Last Taken Type aspirin 81 mg PO DAILY@06/25/19 11/13/20 11/13/20 History multivitamin [Multiple Vitamins] 1 tab PO DAILY@06/30/19 11/13/20 11/13/20 History omega 0-lqe-hzq-fish oil [Fish Oil] 1 cap PO BID@01/17/20 11/13/2011/13 History brimonidine 1 drp OPHTHALMIC (EYE) BID@01/31/20 11/13/20 08/13/20 History dorzolamide-timolol 1 drp OPHTHALMIC (EYE) BID@01/31/20 11/13/20 11/13/20 History pantoprazole 40 mg PO DAILY@02/16/20 11/13/20 11/13/20 History nitroglycerin 0.4 mg sublingual 0.4 mg SUBLINGUAL Q5M PRN #25 tab 03/26/20 11/13/20 04/18/20 Rx tablet Rocklatan 1 drp OPHTHALMIC (EYE) DAILY@04/18/20 11/13/20 11/12/20 History sennosides-docusate sodium 2 tab PO BID PRN 04/18/20 11/13/20 04/28/20 History atorvastatin 40 mg PO DAILY@05/14/20 11/13/20 11/12/20 History cholecalciferol (vitamin D3) 25 mcg PO DAILY@05/14/20 11/13/20 11/13/20 History [Vitamin D3] insulin glargine 100 unit/mL (3 50 unit SUBCUT BID@ #15 ml 06/17/20 11/13/20 11/13/20 Rx mL) subcutaneous pen potassium chloride 10 meq PO DAILY@07/10/20 11/13/20 11/13/20 History clopidogrel 75 mg tablet 75 mg PO DAILY@08 #90 tab 08/08/20 11/13/20 11/13/20 Rx levothyroxine 112 mcg tablet 224 mcg PO DAILY@0800 #60 tab 09/02/20 11/13/20 11/13/20 Rx metoclopramide HCl 5 mg tablet 5 mg PO DAILY #30 tab 09/09/20 11/13/20 Unknown Rx Lexapro 10 mg PO DAILY@08 11/13/20 11/13/20 11/13/20 History metoprolol tartrate 25 mg PO BID@08,11/13/20 11/13/20 11/13/20 History Allergies Allergy/AdvReac Type Severity Reaction Status Date / Time metformin [From Glucophage] Allergy Severe Unknown Verified 11/07/20 10:40 venlafaxine [From Effexor] Allergy Severe ADR-Shakine Verified 11/07/20 10:40 ss Additional Medication Information I personally reviewed home medication list and medications received day of admission thus far. PFSH Acute PFSH: Medical History (Updated 11/14/20 @ 10:00 by Neeta Jeronimo MD) Anxiety BPPV (benign paroxysmal positional vertigo) CAD (coronary artery disease) Carotid stenosis Chronic diastolic CHF (congestive heart failure) Chronic left sacroiliac joint pain Claustrophobia Diabetes mellitus Diverticulitis End stage renal disease ESBL (extended spectrum beta-lactamase) producing bacteria infection Gastroparesis GERD (gastroesophageal reflux disease) Gram-negative bacteremia HTN (hypertension) Hyperlipidemia Hypothyroidism Major depression, recurrent DOROTEO on CPAP Partial nontraumatic amputation of left foot (~06/2019) Peripheral vascular disease Peritonitis associated with peritoneal dialysis Phantom pain Suicidal ideation TIA (transient ischemic attack) Vitamin D deficiency Surgical History (Updated 11/14/20 @ 10:07 by Neeta Jeronimo MD) AV (arteriovenous fistula) (~10/2020) H/O hysterectomy with oophorectomy History of appendectomy History of heart artery stent (~2018) LAD, done in [place], [place] History of hysterectomy History of left heart catheterization History of right below knee amputation Peritoneal dialysis catheter in place Removed due to recurrent peritonitis S/P cholecystectomy S/P PICC central line placement (~2019) Status post amputation of toe Family History Denies family history of CAD (coronary artery disease) Clotting disorder Dementia Bleeding disorder Social History Smoking and tobacco status: never smoked Alcohol intake: never Household members: spouse and family History of recent travel: No Vitals/I&O/Wt Last Vital Signs Temp 97.3 F L 11/13/20 18:11 Pulse 58 L 11/13/20 18:11 Resp 16 11/13/20 18:11 BP 159/76 11/13/20 18:11 Pulse Ox 96 11/13/20 18:11 Weight last 48 hrs Weight 87.09 kg Physical Exam Narrative: EXAM NARRATIVE: Constitutional: Awake and alert, cooperative HEENT: Normocephalic atraumatic pupils equally reactive, no nystagmus, unable to elicit vertiginous symptoms with head maneuvers, nasopharynx is clear, oropharynx moist membranes Neck: Supple Respiratory: Clear to auscultation bilaterally Cardiovascular: Regular bradycardic rhythm, positive thrill in left upper extremity, dialysis access intact right upper chest Abdomen: Soft, nontender, positive bowel sounds Extremities: 1+ pitting edema, right BKA Skin: Healing incision to left upper extremity, no new wounds on foot Neuro: Speech clear, extraocular movements are intact, handgrip equal Psych: Normal affect Data : 11/14/20 07:58 11/14/20 07:58 Other data: Laboratory Results WBC 6.7 10^3/uL (4.0-10.0) 11/13/20 20:00 RBC 3.67 10^6/uL (4.1-5.3) L 11/13/20 20:00 Hgb 12.0 g/dL (11.5-15.3) 11/13/20 20:00 Hct 37.2 % (37.0-47.0) 11/13/20 20:00 MCV 101.4 fL (81-99) H 11/13/20 20:00 MCH 32.7 pg (28.0-34.0) 11/13/20 20:00 MCHC 32.3 g/dL (30.0-36.0) 11/13/20 20:00 RDW 14.8 % (12.1-15.1) 11/13/20 20:00 Plt Count 204 10^3/cmm (130-400) 11/13/20 20:00 MPV 11.4 fL (7.4-10.4) H 11/13/20 20:00 Neut % (Auto) 74.3 % 11/13/20 20:00 Lymph % (Auto) 14.5 % 11/13/20 20:00 Cass % (Auto) 8.5 % 11/13/20 20:00 Eos % (Auto) 1.8 % 11/13/20 20:00 Baso % (Auto) 0.6 % 11/13/20 20:00 Neut # (Auto) 4.96 10^3/uL (1.8-7.7) 11/13/20 20:00 Lymph # (Auto) 1.0 10^3/uL (0.8-4.8) 11/13/20 20:00 Cass # (Auto) 0.6 10^3/uL (0.2-0.9) 11/13/20 20:00 Eos # (Auto) 0.1 10^3/uL (0.0-0.8) 11/13/20 20:00 Baso # (Auto) 0.0 10^3/uL (0.0-0.1) 11/13/20 20:00 Nucleated RBC % (auto) 0 % 11/13/20 20:00 Nucleated RBCs # 0.0 /100WBC 11/13/20 20:00 Sodium 138 mmol/L (136-145) 11/13/20 20:13 Potassium 4.1 mmol/L (3.5-5.1) 11/13/20 20:13 Chloride 98 mmol/L (98-107) 11/13/20 20:13 Carbon Dioxide 21 mmol/L (22-29) L 11/13/20 20:13 Anion Gap 23.1 (5-19) H 11/13/20 20:13 BUN 41 mg/dL (6-20) H 11/13/20 20:13 Creatinine 5.4 mg/dL (0.5-0.9) H 11/13/20 20:13 GFR Calculation 8.2 mL/min (90-130) L 11/13/20 20:13 Glucose 209 mg/dL (65-115) H 11/13/20 20:13 POC Glucose 92 mg/dL (70-110) 11/14/20 06:26 Calculated Osmolality 302 mOsm/kg (285-295) H 11/13/20 20:13 Lactic Acid 1.1 mmol/L (0.5-2.2) 11/13/20 20:18 Calcium 9.3 mg/dL (8.5-10.5) 11/13/20 20:13 Total Bilirubin 0.4 mg/dL (0.15-1.2) 11/13/20 20:13 AST 17 U/L (0-32) 11/13/20 20:13 ALT 12 U/L (0-33) 11/13/20 20:13 Alkaline Phosphatase 132 IU/L (35-105) H 11/13/20 20:13 Troponin T Baseline 82 ng/L (0-10) H 11/13/20 20:13 Troponin T 120 Minute 65.06 ng/L (0-10) H 11/13/20 23:03 Delta Troponin T -16.94 ABS# (0-10) L 11/13/20 23:03 Troponin T Hi Sens 6Hr 83.08 ng/L (0-10) H 11/14/20 03:15 Troponin T Hi Sens 6Hr Delta 1.08 ng/L (0-12) 11/14/20 03:15 Total Protein 6.7 g/dL (6.6-8.7) 11/13/20 20:13 Albumin 3.9 g/dL (3.5-5.2) 11/13/20 20:13 Globulin 2.8 g/dL (1.3-4.6) 11/13/20 20:13 Urine Color Yellow (Yellow) 11/13/20 22:46 Urine Appearance Cloudy (CLEAR) 11/13/20 22:46 Urine pH 7 (5-7) 11/13/20 22:46 Ur Specific [place] 1.010 (1.005-1.030) 11/13/20 22:46 Urine Protein 3+ (Negative) H 11/13/20 22:46 Urine Glucose (UA) 1+ (Normal) 11/13/20 22:46 Urine Ketones Negative (Negative) 11/13/20 22:46 Urine Blood 3+ (Negative) H 11/13/20 22:46 Urine Nitrate Negative (Negative) 11/13/20 22:46 Urine Bilirubin Neg (Negative) 11/13/20 22:46 Urine Urobilinogen Norm mg/dL (Negative) 11/13/20 22:46 Ur Leukocyte Esterase 2+ (Negative) H 11/13/20 22:46 Urine RBC 5-10 /hpf (0-2) H 11/13/20 22:46 Urine WBC Too numerous to cnt /hpf (0-5) H 11/13/20 22:46 Ur Squamous Epith Cells 5-10 /hpf (0-5) H 11/13/20 22:46 Amorphous Sediment 4+ /hpf 11/13/20 22:46 Urine Bacteria 4+ /hpf (NONE) H 11/13/20 22:46 A&P Assessment and plan (1) Dizziness: He has a history of benign positional vertigo though describes this as being different. She has had variable blood pressures and now today with hypoglycemia that certainly could be the cause of her symptoms. Denies any chest pain. Twelve-lead EKG without acute ischemic changes. Baseline troponin less than recent comparative levels. Has recently been restarted on metoprolol however her dizziness began prior to that by her report. She does have some borderline bradycardia that could have made her dizziness worse. No syncope or fall though describes not being able to get out of bed this morning. Denies any focal neurological symptoms. Status: Acute (2) Hypoglycemia associated with diabetes: In a patient Lantus 50 units twice a day. I have not discerned any other specific etiology currently. Reported eating throughout the day. No obvious acute cardiac or other vascular event. White count is normal with normal differential. Hemodialysis catheter looks intact. Vascular shunt is intact. Denies medication changes. Denies taking old or anybody else's medicines by accident. Review of records shows intermittent hypoglycemia. Records show gastroparesis associated with diabetes that can also contribute. Status: Acute (3) End stage kidney disease: Previously on peritoneal dialysis but had recurrent episodes of peritonitis and catheter was subsequently removed. She had an AV fistula placed in the left upper extremity recently there is not matured yet. She has a hemodialysis catheter in the right upper chest. Dialysis is on Wednesdays and Fridays. Status: Chronic (4) HTN (hypertension): Status: Chronic Qualifiers: Hypertension type: essential hypertension Qualified Code(s): I10 - Essential (primary) hypertension (5) Elevated troponin: Chronic elevation. Known history of chronic kidney disease. Current values are less than recent comparative. Has a history of coronary artery disease status post previous LAD stent and follows with cardiology outpatient. Denies chest pain or increasing dyspnea on exertion. 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 (7) GERD (gastroesophageal reflux disease): Status: Chronic Qualifiers: Esophagitis presence: esophagitis presence not specified Qualified Cod e(s): K21.9 - Gastro-esophageal reflux disease without esophagitis (8) DAILY (generalized anxiety disorder): Status: Chronic Additional A&P Information Observation admission Stop D5W Allow patient to eat Every hour Accu-Cheks for the next few hours make adjustments as needed Hypoglycemia protocol if needed, keeping an eye on volume Hold Lantus and need to adjust dosage at discharge accordingly Sliding scale insulin if needed currently Check hemoglobin A1c Monitor blood pressures and heart rate closely Complete serial cardiac enzymes and EKGs Currently holding metoprolol and will resume at 12.5 mg twice a day tomorrow Continue home aspirin, statin, Plavix Nephrology consultation for dialysis secondary to missed schedule Continue home levothyroxine Continue home escitalopram PPI PT evaluation once blood sugars improve Supportive care otherwise Consultants: Nephrology for hemodialysis Lines/tubes: dialysis catheter right chest DVT prophylaxis: heparin Plans, findings and concerns discussed with patient and she was given an opportunity to ask questions. Anticipated Disposition: Home Code Status: Full code Attestations Medical Necessity Statement*: Currently anticipate a stay less than two midnights and known diabetic presenting with hypoglycemia requiring D5 W administration in the emergency r oom. Plans are as indicated. Coding Level of Care Code Acute Manager Installation for g Fwd Diagnoses Dizziness R42 Hypoglycemia associated with diabetes E11.649 End stage kidney disease N18.6 HTN (hypertension) I10 Hypertension type: essential hypertension Elevated troponin R79.89 Diabetes mellitus E11.42; Z79.4 Diabetes mellitus type: type 2 Diabetes mellitus intermediate frame tender insulin use: with intermediate frame tender use Diabetes mellitus complication status: with neurologic complications Diabetes mellitus complication detail: with polyneuropathy GERD (gastroesophageal reflux disease) K21.9 Esophagitis presence: esophagitis presence not specified DAILY (generalized anxiety disorder) F41.1
[2020-11-13 23:57] LABS: Glucose Point of Care 91 mg/dL (70-110)
[2020-11-14 00:42] VITALS: BP 140/90; BP 166/116; PULSE 58; RESP 17; TEMP 36.2; O2SAT 95; O2SAT 99
[2020-11-14 00:56] LABS: Glucose Point of Care 81 mg/dL (70-110)
[2020-11-14] MEDS: heparin 5,000 unit/mL INJ 1 mL 5000 UNIT SUBCUT ×2 (02:16→11:54)
[2020-11-14 02:41] LABS: Glucose Point of Care 112 mg/dL (70-110)
[2020-11-14 03:43] LABS: Troponin 5 6HR 83.08 ng/L (0-10); Troponin 5 6HR Delta 1.08 ng/L (0-12)
[2020-11-14 03:50] LABS: Glucose Point of Care 106 mg/dL (70-110)
[2020-11-14 03:53] VITALS: BP 132/71; PULSE 65; RESP 17; TEMP 36.6; O2SAT 94
[2020-11-14 04:46] LABS: Glucose Point of Care 93 mg/dL (70-110)
[2020-11-14 05:45] LABS: Glucose Point of Care 91 mg/dL (70-110)
[2020-11-14 06:28] LABS: Glucose Point of Care 92 mg/dL (70-110)
[2020-11-14 07:22] VITALS: BP 158/82; PULSE 65; RESP 17; TEMP 36.9; O2SAT 91
[2020-11-14 08:07] LABS: Basophils % 0.5 %; Eosinophils # 0.2 10^3/uL (0.0-0.8); Hematocrit 32.7 % (37.0-47.0); Hemoglobin 10.7 g/dL (11.5-15.3); Lymphocytes # 1.2 10^3/uL (0.8-4.8); Lymphocytes % 17.5 %; Mean Corpuscular HGB Conc 32.7 g/dL (30.0-36.0); Mean Corpuscular Hemoglobin 32.4 pg (28.0-34.0); Mean Corpuscular Volume 99.1 fL (81-99); Mean Platelet Volume 11.2 fL (7.4-10.4); Monocytes # 0.4 10^3/uL (0.2-0.9); Monocytes % 6.5 %; Neutrophils # 4.77 10^3/uL (1.8-7.7); Neutrophils % 72.3 %; Nucleated Red Blood Cells % 0 %; Platelet Count 200 10^3/cmm (130-400); Red Cell Distribution Width 14.6 % (12.1-15.1); White Blood Count 6.6 10^3/uL (4.0-10.0)
[2020-11-14] MEDS: levothyroxine 112 mcg Tablet 224 MCG PO (08:09)
[2020-11-14] MEDS: escitalopram 10 mg Tablet PO (08:09)
[2020-11-14] MEDS: clopidogrel 75 mg Tablet PO (08:09)
[2020-11-14] MEDS: pantoprazole DR 40 mg Tablet PO (08:09)
[2020-11-14] MEDS: aspirin 81 mg Chew Tablet PO (08:10)
[2020-11-14 08:21] LABS: Estmated Average Glucose 108; Hemoglobin A1C 5.4 % (4.0-6.0)
[2020-11-14 08:32] LABS: Blood Urea Nitrogen 48 mg/dL (6-20); Calcium 9.1 mg/dL (8.5-10.5); Carbon Dioxide 23 mmol/L (22-29); Chloride 103 mmol/L (98-107); Glucose 87 mg/dL (65-115); Osmolality Calculated 306 mOsm/kg (285-295); Sodium 142 mmol/L (136-145)
--- NOTE | 2020-11-14 08:42 | PM.CONSULT ---
Providers/Reason For Consult Consulting Physician/Specialty*: christelle bullard md / telenephrology Reason for Consult*: ESRD care Attending Physician: Calvin Zamorano Primary Care Provider: Yovany Leonardo MD History of Present Illness History of Present Illness Rizwana Herzog is a 55 year old female ESRD MWF- pt admitted w/ synptomatic hypoglycemia and weakness. she missed HD yesterday. h/o HTN, IDDM, ESRD - was on PD now HD, , Rt BKA, CAD, anemia, hypothyroidism, anxiety/ depression, diastolic dysfunction Review of Systems General: Reports: 10 or more systems reviewed and unremarkable except in HPI and below Narrative: weak, depressed, poor vision, no cp, + sob, nausea, weak, dizzy Meds/Allergies Home Medications and Allergies Home Medications Medication Instructions Recorded Confirmed Last Taken Type aspirin 81 mg PO DAILY@06/25/19 11/13/20 11/13/20 History multivitamin [Multiple Vitamins] 1 tab PO DAILY@06/30/19 11/13/20 11/13/20 History omega 0-lxp-usu-fish oil [Fish Oil] 1 cap PO BID@01/17/20 11/13/20 11/13/20 History brimonidine 1 drp OPHTHALMIC (EYE) BID@01/31/20 11/13/20 08/13/20 History dorzolamide-timolol 1 drp OPHTHALMIC (EYE) BID@01/31/20 11/13/20 11/13/20 History pantoprazole 40 mg PO DAILY@02/16/20 11/13/20 11/13/20 History nitroglycerin 0.4 mg sublingual 0.4 mg SUBLINGUAL Q5M PRN #25 tab 03/26/20 11/13/20 04/18/20 Rx tablet Rocklatan 1 drp OPHTHALMIC (EYE) DAILY@04/18/20 11/13/20 11/12/20 History sennosides-docusate sodium 2 tab PO BID PRN 04/18/20 11/13/20 04/28/20 History atorvastatin 40 mg PO DAILY@05/14/20 11/13/20 11/12/20 History cholecalciferol (vitamin D3) 25 mcg PO DAILY@05/14/20 11/13/2009/21 History [Vitamin D3] insulin glargine 100 unit/mL (3 50 unit SUBCUT BID@ #15 ml 06/17/20 11/13/20 11/13/20 Rx mL) subcutaneous pen potassium chloride 10 meq PO DAILY@08 07/10/20 11/13/20 11/13/20 History clopidogrel 75 mg tablet 75 mg PO DAILY@08 #90 tab 08/08/20 11/13/20 11/13/20 Rx levothyroxine 112 mcg tablet 224 mcg PO DAILY@0800 #60 tab 09/02/20 11/13/20 11/13/20 Rx metoclopramide HCl 5 mg tablet 5 mg PO DAILY #30 tab 09/09/20 11/13/20 Unknown Rx Lexapro 10 mg PO DAILY@08 11/13/20 11/13/20 11/13/20 History metoprolol tartrate 25 mg PO BID@11/13/20 11/13/20 11/13/20 History Allergies Allergy/AdvReac Type Severity Reaction Status Date / Time metformin [From Glucophage] Allergy Severe Unknown Verified 11/07/20 10:40 venlafaxine [From Effexor] Allergy Severe ADR-Shakine Verified 11/07/20 10:40 ss Current Medications Current Medications Generic Name Dose Route Start Last Admin Trade Name Freq PRN Reason Stop Dose Admin Aspirin 81 mg 11/14/20 08:00 11/14/20 08:10 Aspirin 81 Mg Chew Tablet PO 81 mg DAILY@08 JERSON Administration Clopidogrel Bisulfate 75 mg 11/14/20 08:00 11/14/20 08:09 Clopidogrel 75 Mg Tablet PO 75 mg DAILY@08 JERSON Administration Escitalopram Oxalate 10 mg 11/14/20 08:00 11/14/20 08:09 Escitalopram 10 Mg Tablet PO 10 mg DAILY@08 JERSON Administration Heparin Sodium (Beef Lung) 5,000 unit 11/14/20 00:42 11/14/20 02:16 Heparin 5,000 Unit/Ml Inj 1 Ml SUBCUT 5,000 unit Q12H JERSON Administration Insulin Aspart 0 unit 11/14/20 08:00 11/14/20 08:11 Insulin Aspart 100 Unit/1 Ml SUBCUT Not Given TIDWM [facility] Protocol Levothyroxine Sodium 224 mcg 11/14/20 08:00 11/14/20 08:09 Levothyroxine 112 Mcg Tablet PO 224 mcg DAILY@0800 [facility] Administration Pantoprazole Sodium 40 mg 11/14/20 08:00 11/14/20 08:[address] 40 Mg Tablet PO 40 mg DAILY@08 [facility] Administration PFSH Acute PFSH: Medical History (Updated 11/14/20 @ 07:41 by Neeta Jeronimo MD) Anxiety BPPV (benign paroxysmal positional vertigo) CAD (coronary artery disease) Carotid stenosis Chronic diastolic CHF (congestive heart failure) Chronic left sacroiliac joint pain Claustrophobia Diabetes mellitus Diverticulitis End stage renal disease ESBL (extended spectrum beta-lactamase) producing bacteria infection Gastroparesis GERD (gastroesophageal reflux disease) Gram-negative bacteremia HTN (hypertension) Hyperlipidemia Hypothyroidism Major depression, recurrent DOROTEO on CPAP Partial nontraumatic amputation of left foot (~06/2019) Peripheral vascular disease Peritonitis associated with peritoneal dialysis Phantom pain Suicidal ideation TIA (transient ischemic attack) Vitamin D deficiency Surgical History (Updated 11/14/20 @ 07:41 by Neeta Jeronimo MD) AV (arteriovenous fistula) (~10/2020) H/O hysterectomy with oophorectomy History of appendectomy History of heart artery stent History of hysterectomy History of left heart catheterization History of right below knee amputation Peritoneal dialysis catheter in place S/P cholecystectomy S/P PICC central line placement Status post amputation of toe Family History Denies family history of CAD (coronary artery disease) Clotting disorder Dementia Bleeding disorder Social History Smoking and tobacco status: never smoked Alcohol intake: never Household members: spouse and family History of recent travel: No Vitals/I&O/Wt Last Vital Signs Temp 98.5 F 11/14/20 07:22 Pulse 65 11/14/20 07:22 Resp 17 11/14/20 07:22 BP 158/82 11/14/20 07:22 Pulse Ox 91 11/14/20 07:22 Weight last 48 hrs Weight 87.09 kg Physical Exam Narrative: EXAM NARRATIVE: obese, weak, comfortable in bed vs noted heent- nc/at, eomi neck no jvp lung clear heart- reg, +ROBINA abd soft, nt, nd, +BS ext Rt BKA neuro- a,a,o x 3 depressed A&P Additional A&P Information 55 yr old female 1. ESRD- HD MWF-missed HD yesterday- plan short HD today, full hD in am 2. hypoglycemia- dec insulin per medicine 3. PVD 4. anemia- hgb okay 5. bone- mineral- metabolism of ESRD- phos binder - check vit d lelvels 6. + trop per medicine and cardiology- pt is being evaluated for a renal transplant- please ensure pt has had or will get a cardiac cath 7. Q UTI -per medicine -on ceftriaxone seen and examined w/ rn- discussed w/ HD rN Consult Attestations Medical Necessity Statement: esrd, cad, sob Time Spent in Patient Care: Greater than 35 minutes Coding Level of Care Code Acute Account Technician for Maris Braden
[2020-11-14 08:49] LABS: Magnesium 1.8 mg/dL (1.7-2.3); Phosphorus 5.7 mg/dL (2.5-4.5)
[2020-11-14] MEDS: brimonidine 0.2% Op Soln 5 mL Btl 1 DROP EYE-BOTH (08:58)
[2020-11-14] MEDS: cefTRIAXone 1,000 MG in sodium chloride 0.9% (plus) 50 ML 100 MG IV (08:58)
[2020-11-14 10:12] LABS: Hepatitis B Surface AB 10.3 (11.5-1000); Hepatitis B Surface Antigen Non-Reactive (Nonreactive); Hepatitis C Virus Antibody Non-Reactive (Nonreactive)
[2020-11-14] MEDS: b-complex-vitamin c Tablet 1 EACH PO (10:49)
[2020-11-14] MEDS: acetaminophen 325 mg Tablet 650 MG PO (10:50)
[2020-11-14 10:56] LABS: Glucose Point of Care 82 mg/dL (70-110)
[2020-11-14 11:00] VITALS: BP 156/78; PULSE 71; RESP 15; TEMP 36.9; O2SAT 90
--- NOTE | 2020-11-14 11:13 | PC.CHAP ---
Pastoral Care Encounter/Spiritual Assessment Type of Contact [x] Declined brain picker visit [] Patient/Family/Request visit [] Outpatient visit [] Follow-up visit [] Physician referral [] Code/Alert [] Routine visit [] Staff referral [] Actively dying [] Patient sleeping [] Family support [] [] Out of room [] Palliative care [] [] Receiving care in room [] Pre-surgical visit [] Trauma [] Long length of stay [] ICU visit [] Other: Relational/Emotional Strength [] Patient feels connected with others/family/visitors/staff [] Distress [] Loneliness/isolation [] Abandonment Spirituality of Patient [] Person of Talya [] Attends Anabaptism of their [place]a [] Believes in Prayer [] Reads Bible or Yazidism materials [] There are Spiritual issues to be addressed Distribution Systems Serviceperson Interventions [] Prayer [] Active listening [] Non-anxious presence [] Spiritual/emotional support [] Crisis/trauma care [] Spiritual counseling [] Bereavement support [] Provided bereavement packet [] Provided Bible/devotional materials [] Provided toy/stuffed animal, coloring book to patient or family member [] Provided Communion [] Anointing/Cuddy [] Salvation [] Completed spiritual assessment [] Other: Impact on Illness or Injury [] Angry [] Fearful [] Anxious [] Often cries [] Exhaustion [] Unable to work [] Unable to attend taoist [] Unable to walk/stand [] Unable to read [] Unable to drive [] Unable to eat/drink [] Unable to sleep [] Unable to be with family [] Patient intubated [] Other: Summary Declined brain picker visit Time spent with patient 5 minjs
--- NOTE | 2020-11-14 14:06 | CT_ITS ---
WS: [id number] CT PARANASAL SINUSES HISTORY: frontal headache, sinus tenderness TECHNIQUE: Contiguous 2.5 mm axial images obtained through the sinuses. Images are reconstructed in s agittal and coronal planes. All CT scans at [facility] use at least one of these dose opt imization techniques: automated exposure control; mA and/or kV adjustment per patient size (includes targeted exams where dose is matched to clinical indication); or iterative reconstruction. DLP: 521.9 mGy.cm COMPARISON: None available. Frontal sinuses: Normal. Sphenoid sinus: Normal. Ethmoid sinuses: Normal. Maxillary sinus: Incomplete fibrous septations. No air-fluid levels or mucosal thickening. Ostiomeatal unit: Patent without significant disease. Cribriform plate is normal. There is slight dev iation of the nasal septum to the RIGHT of midline. CT/CT sinus wo con* [id number] IMPRESSION: 1. No evidence for significant sinus disease. 2. Patent ostiomeatal units.
--- NOTE | 2020-11-14 15:00 | PC.NURSE ---
dialysis pt is having dialysis treatment right now.
[2020-11-14] MEDS: magnesium sulfate premix 2 GM/50 ML PIGGYBACK IV (17:29)
[2020-11-14 17:31] LABS: Glucose Point of Care 85 mg/dL (70-110)
[2020-11-14 19:26] VITALS: BP 156/78; PULSE 71; RESP 15; TEMP 36.9; O2SAT 90
--- NOTE | 2020-11-14 19:29 | PC.NURSE ---
DISCHARGE NOTE: DISCHARGE INSTRUCTIONS DISCUSSED WITH PATIENT AND SIGNED BY PATIENT. PATIENT INSTRUCTED TO CALL CENTRALIZED SCHEDULING IN THE MORNING TO ESTABLISH FOLLOW UP TESTS AND APPOINTMENTS. PATIENT STATES UNDERSTANDING. PATIENT WAS IN WHEELCHAIR WITH SPOUSE UPON DISCHARGING FROM THE FLOOR.
--- NOTE | 2020-11-14 19:31 | P.DS_ITS ---
Discharge Providers Date of Admission: 11/13/20 22:19 Date of Discharge: November 14, 2020 Attending Provider at Admission: Neeta Jeronimo MD Attending Provider at Discharge: Calvin Zamorano Primary Care Provider: Yovany Leonardo MD Diagnoses at Discharge Discharge Diagnosis (1) Dizziness: Status: Acute (2) Hypoglycemia associated with diabetes: Status: Acute (3) End stage kidney disease: Status: Chronic (4) HTN (hypertension): Status: Chronic Qualifiers: Hypertension type: essential hypertension Qualified Code(s): I10 - Essential (primary) hypertension (5) Elevated troponin: Status: Chronic (6) Diabetes mellitus: Status: Chronic Qualifiers: Diabetes mellitus type: type 2 Diabetes mellitus mcc insulin use: with mcc use Diabetes mellitus complication status: with neurologic complications Diabetes mellitus complication detail: with polyneuropathy Qualified Code(s): E11.42 - Type 2 diabetes mellitus with diabetic polyneuropathy; 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 (7) GERD (gastroesophageal reflux disease): Status: Chronic Qualifiers: Esophagitis presence: esophagitis presence not specified Qualified C ode(s): K21.9 - Gastro-esophageal reflux disease without esophagitis (8) DAILY (generalized anxiety disorder): Status: Chronic Reason for Visit Reason for Visit: Dizziness Hospital Course Hospital Course 55-year-old lady with a number of chronic medical comorbidities was observed in the hospital due to complaint of dizziness of 2 weeks duration, was monitored in the hospital, on presentation with noted hypoglycemia, glucose in the 40s, insulin was held, also with noted bradycardia, heart rates in the 50s, while taking metoprolol at home. Blood pressure noted in the 150s, not orthostatic. Reports at home usually runs in the 140s. Hypoglycemia was treated with D50, subsequently with D5W infusion. Blood glucose has improved. She has tolerated oral intake. Insulin Lantus is decreased from 50 units twice daily to 30 units twice daily for now to be resumed tomorrow morning only if blood glucose is not low. Discussed with her to monitor glucose more often as it appears she has been checking it only once-twice a day. A1c is 5.4, so it appears she may be having episodes of hypoglycemia of which she is not aware. We have had an extensive discussion regarding dangers of hypoglycemia and strategies how to avoid it. She understands to seek medical attention immediately in case of any persistent hypoglycemia. It appears that perhaps her insulin sensitivity has increased since she is transition from peritoneal dialysis which was inadequate to hemodialysis. Please follow-up blood glucose, adjust insulin additionally as appropriate. With decrease in metoprolol dose in the hospital heart rates overall improved, but given episodes of bradycardia she is asked to discontinue metoprolol. She states this was resumed for her blood pressures, although she does also have underlying coronary artery disease. She is started on losartan to assist with hypertension instead. Urinary tract infection noted on UA on presentation was started on Rocephin in the hospital, at discharge will continue on cefdinir. Gram stain, cultures in process. With regards to dizziness she had had a similar admission in April 2020, at which time she reported things spinning around her. She denies this sensation currently. She does have known carotid artery disease for which she used to follow with vascular surgery, but states has not seen them in over a year. Vertigo and nystagmus were not detected during the hospitalization. She did feel dizzy standing up with physical therapy, although blood pressure was not noted to be orthostatic shortly after standing up. She did note having a frontal headache, with some sinus tenderness, but CT of the sinuses was unremarkable. Given the recurrent and currently persistent nature of the dizziness episodes without good explanation, with noted cardiovascular disease, she is referred for additional assessment by MRI/MRA/MRV, and reassessment by carotid duplex. She is already on maximal therapy in case this is related to CVA and/or atherosclerosis, but she is asked to make an appointment again with her vascular surgeon and is referred for assessment of by neurology to follow-up with the imaging to discuss whether her symptoms may be related to the atherosclerotic disease, especially if there is any noted progression. She has gotten up, without any syncopal episode, and did well with physical therapy. Currently she states she is feeling better. She did miss hemodialysis yesterday, and underwent partial dialysis today. She is asked to resume her usual dialysis again starting tomorrow. Patient will be wanting to know from cardiology, as well as neurology/vascular surgery regarding duration in need of Plavix with her pursuit of kidney transplantation. Physical Exam Narrative: EXAM NARRATIVE: accompanying her in the room. Const: COMMON NORMALS: no acute distress, patient oriented x3 and alert GENERAL APPEARANCE: cooperative and comfortable NUTRITIONAL APPEARANCE: obese ORIENTATION/CONSCIOUSNESS: Yes awake OTHER: Sitting up in chair. HENMT: COMMON NORMALS: oropharynx normal Neck/C-Spine: COMMON NORMALS: no meningeal signs and no JVD Resp: COMMON NORMALS: normal respiratory effort and clear to auscultation bilaterally AUSCULTATION: clear to auscultation bilaterally Cardio: COMMON NORMALS: no JVD, regular rhythm, S1 normal heart sound present, S2 normal heart sound present and No murmurs present (Cardio) RHYTHM: regular rhythm HEART SOUNDS: S1 normal heart sound present and S2 normal heart sound present GI: COMMON NORMALS: Normal to inspection, nondistended, normoactive bowel sounds present, Soft to palpation and non-tender PALPATION: Yes Soft to palpation Extremity: COMMON NORMALS: no joint enlargement and no pedal edema OTHER: Right BKA. Neuro: COMMON NORMALS: patient oriented x3 and moves all extremities SENSORIUM/ORIENTATION: Yes alert MENINGEAL SIGNS: Yes no meningeal signs SPEECH: speech normal MOTOR EXAM: 5/5 motor strength present throughout OTHER: Chronic left eye blindness. Skin: COMMON NORMALS: no rashes or lesions noted GENERAL SKIN EXAM: no rashes or lesions noted Discharge Data Data Completed and Pending: Completed Studies During Hospitalization Category Date Time Status CT sinus wo con* [id number] Routine Cat Scan 11/14/20 14:06 Completed Pending at discharge Category Date Time Status 25 Hydroxy Vitami n D AM LABS Lab 11/15/20 04:00 Ordered Complete Blood Co unt w/Auto AM LABS Lab 11/15/20 04:00 Ordered Complete Blood Co unt w/Auto AM LABS Lab 11/16/20 04:00 Ordered Complete Blood Co unt w/Auto AM LABS Lab 11/17/20 04:00 Ordered Comprehensive Met abolic Panel AM LA BS Lab 11/15/20 04:00 Ordered Comprehensive Met abolic Panel AM LA BS Lab 11/16/20 04:00 Ordered Comprehensive Met abolic Panel AM LA BS Lab 11/17/20 04:00 Ordered Magnesium AM LABS Lab 11/15/20 04:00 Ordered Magnesium AM LABS Lab 11/16/20 04:00 Ordered Magnesium AM LABS Lab 11/17/20 04:00 Ordered PTH [Parathyroid With Calcium] AM L ABS Lab 11/15/20 04:00 Ordered Phosphorus AM LAB S Lab 11/15/20 04:00 Ordered Phosphorus AM LAB S Lab 11/16/20 04:00 Ordered Phosphorus AM LAB S Lab 11/17/20 04:00 Ordered Urine Culture Sta t Lab 11/13/20 22:46 Received Vitamin D 1,25 Di hydroxy Routine Lab 11/14/20 07:58 Received Labs from last 24 hours 11/14/20 11/14/20 11/14/20 17:28 10:53 07:58 WBC RBC Hgb Hct MCV MCH MCHC RDW Plt Count MPV Neut % (Auto) Lymph % (Auto) [place] % (Auto) Eos % (Auto) Baso % (Auto) Neut # (Auto) Lymph # (Auto) [place] # (Auto) Eos # (Auto) Baso # (Auto) Nucleated RBC % (a uto) Nucleated RBCs # Sodium Potassium Chloride Carbon Dioxide Anion Gap BUN Creatinine GFR Calculation Glucose POC Glucose 85 82 Estimat Average Gl ucose Hemoglobin A1c Calculated Osmolal ity Lactic Acid Calcium Phosphorus Magnesium Total Bilirubin AST ALT Alkaline Phosphata se Troponin T Baselin e Troponin T 120 Min enterprise Delta Troponin T Troponin T Hi Sens 6Hr Troponin T Hi Sens 6Hr Delta Total Protein Albumin Globulin 25-OH Vitamin D To ashely 1,25 Dihydroxy Vit D2 1,25 Dihydroxy Vit D3 Urine Color Urine Appearance Urine pH Ur Specific Gravit y Urine Protein Urine Glucose (UA) Urine Ketones Urine Blood Urine Nitrate Urine Bilirubin Urine Urobilinogen Ur Leukocyte Yara ase Urine RBC Urine WBC Ur Squamous Epith Cells Amorphous Sediment Urine Bacteria Hep Bs Antigen Non-reactive Hep Bs Antibody 10.3 L Hepatitis C Antibo dy Non-reactive 11/14/20 11/14/20 11/14/20 07:58 07:58 07:58 WBC RBC Hgb Hct MCV MCH MCHC RDW Plt Count MPV Neut % (Auto) Lymph % (Auto) [place] % (Auto) Eos % (Auto) Baso % (Auto) Neut # (Auto) Lymph # (Auto) [place] # (Auto) Eos # (Auto) Baso # (Auto) Nucleated RBC % (a uto) Nucleated RBCs # Sodium Potassium Chloride Carbon Dioxide Anion Gap BUN Creatinine GFR Calculation Glucose POC Glucose Estimat Average Gl ucose 108 Hemoglobin A1c 5.4 Calculated Osmolal ity Lactic Acid Calcium Phosphorus 5.7 H Magnesium 1.8 Total Bilirubin AST ALT Alkaline Phosphata se Troponin T Baselin e Troponin T 120 Min enterprise Delta Troponin T Troponin T Hi Sens 6Hr Troponin T Hi Sens 6Hr Delta Total Protein Albumin Globulin 25-OH Vitamin D To ashely Pending 1,25 Dihydroxy Vit D2 Pending 1,25 Dihydroxy Vit D3 Pending Urine Color Urine Appearance Urine pH Ur Specific Gravit y Urine Protein Urine Glucose (UA) Urine Ketones Urine Blood Urine Nitrate Urine Bilirubin Urine Urobilinogen Ur Leukocyte Yara ase Urine RBC Urine WBC Ur Squamous Epith Cells Amorphous Sediment Urine Bacteria Hep Bs Antigen Hep Bs Antibody Hepatitis C Antibo dy 11/14/20 11/14/20 11/14/20 07:58 07:58 06:26 WBC 6.6 RBC 3.30 L Hgb 10.7 L Hct 32.7 L MCV 99.1 H MCH 32.4 MCHC 32.7 RDW 14.6 Plt Count 200 MPV 11.2 H Neut % (Auto) 72.3 Lymph % (Auto) 17.5 [place] % (Auto) 6.5 Eos % (Auto) 3.0 Baso % (Auto) 0.5 Neut # (Auto) 4.77 Lymph # (Auto) 1.2 [place] # (Auto) 0.4 Eos # (Auto) 0.2 Baso # (Auto) 0.0 Nucleated RBC % (a uto) 0 Nucleated RBCs # 0.0 Sodium 142 Potassium 4.0 Chloride 103 Carbon Dioxide 23 Anion Gap 20.0 H BUN 48 H Creatinine 6.2 H* GFR Calculation 7.0 L Glucose 87 POC Glucose 92 Estimat Average Gl ucose Hemoglobin A1c Calculated Osmolal ity 306 H Lactic Acid Calcium 9.1 Phosphorus Magnesium Total Bilirubin AST ALT Alkaline Phosphata se Troponin T Baselin e Troponin T 120 Min enterprise Delta Troponin T Troponin T Hi Sens 6Hr Troponin T Hi Sens 6Hr Delta Total Protein Albumin Globulin 25-OH Vitamin D To ashely 1,25 Dihydroxy Vit D2 1,25 Dihydroxy Vit D3 Urine Color Urine Appearance Urine pH Ur Specific Gravit y Urine Protein Urine Glucose (UA) Urine Ketones Urine Blood Urine Nitrate Urine Bilirubin Urine Urobilinogen Ur Leukocyte Yara ase Urine RBC Urine WBC Ur Squamous Epith Cells Amorphous Sediment Urine Bacteria Hep Bs Antigen Hep Bs Antibody Hepatitis C Antibo dy 11/14/20 11/14/20 11/14/20 05:41 04:43 03:48 WBC RBC Hgb Hct MCV MCH MCHC RDW Plt Count MPV Neut % (Auto) Lymph % (Auto) [place] % (Auto) Eos % (Auto) Baso % (Auto) Neut # (Auto) Lymph # (Auto) [place] # (Auto) Eos # (Auto) Baso # (Auto) Nucleated RBC % (a uto) Nucleated RBCs # Sodium Potassium Chloride Carbon Dioxide Anion Gap BUN Creatinine GFR Calculation Glucose POC Glucose 91 93 106 Estimat Average Gl ucose Hemoglobin A1c Calculated Osmolal ity Lactic Acid Calcium Phosphorus Magnesium Total Bilirubin AST ALT Alkaline Phosphata se Troponin T Baselin e Troponin T 120 Min enterprise Delta Troponin T Troponin T Hi Sens 6Hr Troponin T Hi Sens 6Hr Delta Total Protein Albumin Globulin 25-OH Vitamin D To ahsely 1,25 Dihydroxy Vit D2 1,25 Dihydroxy Vit D3 Urine Color Urine Appearance Urine pH Ur Specific Gravit y Urine Protein Urine Glucose (UA) Urine Ketones Urine Blood Urine Nitrate Urine Bilirubin Urine Urobilinogen Ur Leukocyte Yara ase Urine RBC Urine WBC Ur Squamous Epith Cells Amorphous Sediment Urine Bacteria Hep Bs Antigen Hep Bs Antibody Hepatitis C Antibo dy 11/14/20 11/14/20 11/14/20 03:15 02:37 00:53 WBC RBC Hgb Hct MCV MCH MCHC RDW Plt Count MPV Neut % (Auto) Lymph % (Auto) [place] % (Auto) Eos % (Auto) Baso % (Auto) Neut # (Auto) Lymph # (Auto) [place] # (Auto) Eos # (Auto) Baso # (Auto) Nucleated RBC % (a uto) Nucleated RBCs # Sodium Potassium Chloride Carbon Dioxide Anion Gap BUN Creatinine GFR Calculation Glucose POC Glucose 112 H 81 Estimat Average Gl ucose Hemoglobin A1c Calculated Osmolal ity Lactic Acid Calcium Phosphorus Magnesium Total Bilirubin AST ALT Alkaline Phosphata se Troponin T Baselin e Troponin T 120 Min enterprise Delta Troponin T Troponin T Hi Sens 6Hr 83.08 H Troponin T Hi Sens 6Hr Delta 1.08 Total Protein Albumin Globulin 25-OH Vitamin D To ashely 1,25 Dihydroxy Vit D2 1,25 Dihydroxy Vit D3 Urine Color Urine Appearance Urine pH Ur Specific Gravit y Urine Protein Urine Glucose (UA) Urine Ketones Urine Blood Urine Nitrate Urine Bilirubin Urine Urobilinogen Ur Leukocyte Yara ase Urine RBC Urine WBC Ur Squamous Epith Cells Amorphous Sediment Urine Bacteria Hep Bs Antigen Hep Bs Antibody Hepatitis C Antibo dy 11/13/20 11/13/20 11/13/20 23:53 23:03 22:46 WBC RBC Hgb Hct MCV MCH MCHC RDW Plt Count MPV Neut % (Auto) Lymph % (Auto) [place] % (Auto) Eos % (Auto) Baso % (Auto) Neut # (Auto) Lymph # (Auto) [place] # (Auto) Eos # (Auto) Baso # (Auto) Nucleated RBC % (a uto) Nucleated RBCs # Sodium Potassium Chloride Carbon Dioxide Anion Gap BUN Creatinine GFR Calculation Glucose POC Glucose 91 Estimat Average Gl ucose Hemoglobin A1c Calculated Osmolal ity Lactic Acid Calcium Phosphorus Magnesium Total Bilirubin AST ALT Alkaline Phosphata se Troponin T Baselin e Troponin T 120 Min enterprise 65.06 H Delta Troponin T -16.94 L Troponin T Hi Sens 6Hr Troponin T Hi Sens 6Hr Delta Total Protein Albumin Globulin 25-OH Vitamin D To ashely 1,25 Dihydroxy Vit D2 1,25 Dihydroxy Vit D3 Urine Color Yellow Urine Appearance Cloudy Urine pH 7 Ur Specific Gravit y 1.010 Urine Protein 3+ H Urine Glucose (UA) 1+ Urine Ketones Negative Urine Blood 3+ H Urine Nitrate Negative Urine Bilirubin Neg Urine Urobilinogen Norm Ur Leukocyte Yara ase 2+ H Urine RBC 5-10 H Urine WBC Too numerous to c nt H Ur Squamous Epith Cells 5-10 H Amorphous Sediment 4+ Urine Bacteria 4+ H Hep Bs Antigen Hep Bs Antibody Hepatitis C Antibo dy 11/13/20 11/13/20 11/13/20 22:31 21:08 20:30 WBC RBC Hgb Hct MCV MCH MCHC RDW Plt Count MPV Neut % (Auto) Lymph % (Auto) [place] % (Auto) Eos % (Auto) Baso % (Auto) Neut # (Auto) Lymph # (Auto) [place] # (Auto) Eos # (Auto) Baso # (Auto) Nucleated RBC % (a uto) Nucleated RBCs # Sodium Potassium Chloride Carbon Dioxide Anion Gap BUN Creatinine GFR Calculation Glucose POC Glucose 97 147 H 199 H Estimat Average Gl ucose Hemoglobin A1c Calculated Osmolal ity Lactic Acid Calcium Phosphorus Magnesium Total Bilirubin AST ALT Alkaline Phosphata se Troponin T Baselin e Troponin T 120 Min enterprise Delta Troponin T Troponin T Hi Sens 6Hr Troponin T Hi Sens 6Hr Delta Total Protein Albumin Globulin 25-OH Vitamin D To ashely 1,25 Dihydroxy Vit D2 1,25 Dihydroxy Vit D3 Urine Color Urine Appearance Urine pH Ur Specific Gravit y Urine Protein Urine Glucose (UA) Urine Ketones Urine Blood Urine Nitrate Urine Bilirubin Urine Urobilinogen Ur Leukocyte Yara ase Urine RBC Urine WBC Ur Squamous Epith Cells Amorphous Sediment Urine Bacteria Hep Bs Antigen Hep Bs Antibody Hepatitis C Antibo dy 11/13/20 11/13/20 11/13/20 20:18 20:13 20:13 WBC RBC Hgb Hct MCV MCH MCHC RDW Plt Count MPV Neut % (Auto) Lymph % (Auto) [place] % (Auto) Eos % (Auto) Baso % (Auto) Neut # (Auto) Lymph # (Auto) [place] # (Auto) Eos # (Auto) Baso # (Auto) Nucleated RBC % (a uto) Nucleated RBCs # Sodium 138 Potassium 4.1 Chloride 98 Carbon Dioxide 21 L Anion Gap 23.1 H BUN 41 H Creatinine 5.4 H GFR Calculation 8.2 L Glucose 209 H POC Glucose Estimat Average Gl ucose Hemoglobin A1c Calculated Osmolal ity 302 H Lactic Acid 1.1 Calcium 9.3 Phosphorus Magnesium Total Bilirubin 0.4 AST 17 ALT 12 Alkaline Phosphata se 132 H Troponin T Baselin e 82 H Troponin T 120 Min enterprise Delta Troponin T Troponin T Hi Sens 6Hr Troponin T Hi Sens 6Hr Delta Total Protein 6.7 Albumin 3.9 Globulin 2.8 25-OH Vitamin D To ashely 1,25 Dihydroxy Vit D2 1,25 Dihydroxy Vit D3 Urine Color Urine Appearance Urine pH Ur Specific Gravit y Urine Protein Urine Glucose (UA) Urine Ketones Urine Blood Urine Nitrate Urine Bilirubin Urine Urobilinogen Ur Leukocyte Yara ase Urine RBC Urine WBC Ur Squamous Epith Cells Amorphous Sediment Urine Bacteria Hep Bs Antigen Hep Bs Antibody Hepatitis C Antibo dy 11/13/20 11/13/20 11/13/20 20:00 19:46 19:44 WBC 6.7 RBC 3.67 L Hgb 12.0 Hct 37.2 MCV 101.4 H MCH 32.7 MCHC 32.3 RDW 14.8 Plt Count 204 MPV 11.4 H Neut % (Auto) 74.3 Lymph % (Auto) 14.5 [place] % (Auto) 8.5 Eos % (Auto) 1.8 Baso % (Auto) 0.6 Neut # (Auto) 4.96 Lymph # (Auto) 1.0 [place] # (Auto) 0.6 Eos # (Auto) 0.1 Baso # (Auto) 0.0 Nucleated RBC % (a uto) 0 Nucleated RBCs # 0.0 Sodium Potassium Chloride Carbon Dioxide Anion Gap BUN Creatinine GFR Calculation Glucose POC Glucose 332 H 354 H Estimat Average Gl ucose Hemoglobin A1c Calculated Osmolal ity Lactic Acid Calcium Phosphorus Magnesium Total Bilirubin AST ALT Alkaline Phosphata se Troponin T Baselin e Troponin T 120 Min enterprise Delta Troponin T Troponin T Hi Sens 6Hr Troponin T Hi Sens 6Hr Delta Total Protein Albumin Globulin 25-OH Vitamin D To ashely 1,25 Dihydroxy Vit D2 1,25 Dihydroxy Vit D3 Urine Color Urine Appearance Urine pH Ur Specific Gravit y Urine Protein Urine Glucose (UA) Urine Ketones Urine Blood Urine Nitrate Urine Bilirubin Urine Urobilinogen Ur Leukocyte Yara ase Urine RBC Urine WBC Ur Squamous Epith Cells Amorphous Sediment Urine Bacteria Hep Bs Antigen Hep Bs Antibody Hepatitis C Antibo dy Vitals: Last Vital Signs Temp 98.4 F 11/14/20 19:26 Pulse 71 11/14/20 19:26 Resp 15 11/14/20 19:26 BP 156/78 11/14/20 19:26 Pulse Ox 90 11/14/20 19:26 Discharge Plan Discharge Patient Disposition: Home Condition: Stable Prescriptions: New cefdinir 300 mg capsule 300 mg PO BID 5 Days Qty: 10 RF: 0 losartan 25 mg tablet 25 mg PO DAILY Qty: 30 RF: 0 Continued nitroglycerin 0.4 mg tablet, sublingual 0.4 mg SUBLINGUAL Q5M PRN (Reason: Chest Pain) Qty: 25 RF: 6 clopidogrel 75 mg tablet 75 mg PO DAILY@08 Qty: 90 RF: 3 levothyroxine 112 mcg tablet 224 mcg PO DAILY@0800 Qty: 60 RF: 3 metoclopramide HCl [Reglan] 5 mg tablet 5 mg PO DAILY Qty: 30 RF: 0 aspirin 81 mg Tablet,Chewable 81 mg PO DAILY@08 RF: 0 pantoprazole 40 mg tablet,delayed release (DR/EC) 40 mg PO DAILY@08 RF: 0 Rocklatan 0.02-0.005 % Drops 1 drp OPHTHALMIC (EYE) DAILY@20 RF: 0 sennosides-docusate sodium 8.6-50 mg tablet 2 tab PO BID PRN (Reason: Constipation) RF: 0 atorvastatin 40 mg Tablet 40 mg PO DAILY@20 RF: 0 cholecalciferol (vitamin D3) [Vitamin D3] 25 mcg (1,000 unit) Tablet 25 mcg PO DAILY@08 RF: 0 potassium chloride 10 mEq Tablet Extended Release 10 meq PO DAILY@08 RF: 0 multivitamin [Multiple Vitamins] Tablet 1 tab PO DAILY@08 RF: 0 omega 0-lyk-jyr-fish oil [Fish Oil] 300-1,000 mg Capsule,Delayed Release(Dr/Ec) 1 cap PO BID@,20 RF: 0 brimonidine 0.2 % drops 1 drp ophthalmic (eye) BID@, RF: 0 dorzolamide-timolol 22.3-6.8 mg/mL drops 1 drp ophthalmic (eye) BID@,20 RF: 0 Lexapro 10 mg tablet 10 mg PO DAILY@08 RF: 0 Changed Lantus Solostar U-100 Insulin 100 unit/mL (3 mL) insulin pen 30 unit SUBCUT BID@, Qty: 15 RF: 12 Discontinued metoprolol tartrate 25 mg tablet 25 mg PO BID@, RF: 0 Discharge Orders: Discharge Order (Routine); Ordered 11/14/20 Ordered By: Calvin Zamorano Other Ambulatory Orders: MR angio head wo con [id number] (Routine) Timeframe: 1 Day Facility: [facility] - Location: Radiology [facility] Ordered By: Calvin Zamorano CV carotid duplex BI* [id number] (Routine) Timeframe: 1 Day Facility: [facility] - Location: Radiology [facility] Ordered By: Calvin Zamorano MR head wo con* [id number] (Routine) Timeframe: 1 Day Facility: [facility] - Location: Radiology [facility] Ordered By: Calvin Zamorano [place] [id number] (Routine) Timeframe: 1 Day Facility: [facility] - Location: Radiology [facility] Ordered By: Calvin Zamorano Referrals: [facility] [Provider Group] - 2 weeks (Recurrent episodes of dizziness, carotid atherosclerosis) Yovany Leonardo MD [Primary Care Provider] - 4-7 days (2 weeks dizziness) Soraya Ignacio MD [Physician] - 2 weeks Discharge Diet: As Directed Discharge Activity: Increase activity as tolerated and As per PT/OT instructions Patient Instructions: Losartan (By mouth), Cefdinir (By mouth), Urinary Tract Infection in Women (GEN), Diabetic Hypoglycemia (GEN), Bradycardia (GEN), Dizziness (GEN), Opioid Safety Activity Restrictions/Additional Instructions: As discussed please monitor blood glucose at least 4 times daily to catch episodes of low blood sugar she may not be aware about. Low blood glucose may be life-threatening with danger of neurologic damage, stroke. Avoid hypoglycemia at all costs. Avoid sugars below 70. Your A1c is 5.4, which may suggest you may have episodes of low blood sugar so that you are not aware of. Please note on presentation your blood sugar was in the 40s. For now please decrease long-acting insulin dose at home to 30 units twice a day starting tomorrow if there is no further low blood glucose when you check it tomorrow morning. Otherwise hold long-acting insulin again, and recheck in the evening. If you encounter low blood glucose anytime again during the day after you have restarted taking long-acting insulin, reduced insulin dose in half. Contact your primary provider's office for additional instructions. If blood glucose is less than 70 at any point, take sugary snacks, recheck in 15-20 minutes, if not increasing, take more sugary snacks and call 911. Please note that your heart rates were found to be low while in the hospital, dipping down into the 50s. Please discontinue metoprolol as this medication slows your heart rate down. Monitor heart rates along with your blood pressure as you have been doing 3 times a day. Record values. Please follow-up with MRI and neck ultrasound imaging, and subsequently please make an appointment with your vascular surgeon to again review the images and discuss whether your symptoms may be related to the atherosclerosis of your neck vasculature. Please follow-up with neurology. Please discuss with your outpatient kidney specialist whether additional coronary angiogram will be necessary given you have had one in April. Please follow-up with cardiology Dr. Ignacio to discuss duration of Plavix. Discuss in case additional angiogram is required for the purposes of renal transplantation. Please discuss duration of Plavix also with the neurologist and your vascular surgeon, although atherosclerosis of your neck vessels was not the primary reason you are started on Plavix, combination of aspirin and Plavix is sometimes used to treat atherosclerosis of neck vessels. Continue antibiotic for urinary tract infection. Please note that urine culture is pending, and you may be contacted in case antibiotic change may be needed. Please discuss with your primary doctor regarding final culture results at follow-up visit. Continue hemodialysis. Please make sure to get your regularly scheduled dialysis tomorrow. Continue renal diabetic dialysis diet. Discharge Attestations Time Spent in Discharge Care*: greater than 30 min Status at Discharge: Cognitive status at discharge: cognitively intact , Behavioral status at discharge: cooperative , Quality Metrics Clinical Quality Measures During this hospital stay, did patient experience: None Coding Level of Care Code Acute g FW DC note Diagnoses Dizziness R42 Hypoglycemia associated with diabetes E11.649 End stage kidney disease N18.6 HTN (hypertension) I10 Hypertension type: essential hypertension Elevated troponin R79.89 Diabetes mellitus E11.42; Z79.4 Diabetes mellitus type: type 2 Diabetes mellitus vamper insulin use: with mcc use Diabetes mellitus complication status: with neurologic complications Diabetes mellitus complication detail: with polyneuropathy GERD (gastroesophageal reflux disease) K21.9 Esophagitis presence: esophagitis presence not specified DAILY (generalized anxiety disorder) F41.1
[2020-11-14 19:49] VITALS: BP 127/62; PULSE 64; RESP 18; TEMP 36.6; O2SAT 92
== END 2020-11-14 19:56 | disposition home or self-care (01) ==
LOC: ER 21:59 → MEDSURG 22:52
PROVIDERS: Internal Medicine Nephrology; Admitting Provider Hospitalist; Emergency Provider Emergency Medicine; PCP Internal Medicine; Visit Provider Internal Medicine
DX: E11.649 Type 2 diabetes mellitus with hypoglycemia without coma (principal); R42 Dizziness and giddiness; R79.89 Other specified abnormal findings of blood chemistry; E11.42 Type 2 diabetes mellitus with diabetic polyneuropathy; Z79.4 Long term (current) use of insulin; K21.9 Gastro-esophageal reflux disease without esophagitis; F41.1 Generalized anxiety disorder; I65.29 Occlusion and stenosis of unspecified carotid artery; E11.22 Type 2 diabetes mellitus with diabetic chronic kidney disease; I12.0 Hypertensive chronic kidney disease with stage 5 chronic kidney disease or end stage renal disease; N18.6 End stage renal disease; I25.10 Atherosclerotic heart disease of native coronary artery without angina pectoris; E03.9 Hypothyroidism, unspecified; E55.9 Vitamin D deficiency, unspecified; Z86.73 Personal history of transient ischemic attack (TIA), and cerebral infarction without residual deficits; Z79.82 Long term (current) use of aspirin; E78.5 Hyperlipidemia, unspecified; G47.33 Obstructive sleep apnea (adult) (pediatric)
CPT/HCPCS: 36415; 36416; 70486; 80048; 80053; 81001; 82652; 82962; 83036; 83605; 83735; 84100; 84484; 85025; 86706; 86803; 87077; 87086; 87186; 87340; 93005; 96361; 96365; 96367; 96372; 97162; 99285; G0378; J0696; J1644; J3475; Q3014

== ENCOUNTER 2020-11-28 07:03 | Outpatient (CLI) | payer MEDICARE, MEDICAID, SELFPAY ==
--- NOTE | 2020-11-28 07:15 | MR_ITS ---
WS: [id number] MRI BRAIN WITHOUT CONTRAST HISTORY: peristent/recurrent dizziness, carotid disease COMPARISON: 04/24/2020 TECHNIQUE: Diffusion imaging, multiplanar T1, T2 and FLAIR imaging obtained. No evidence for acute infarct or hemorrhage. [place]-white matter differentiation is normal. Moderate bilateral T2 and FLAIR signal hyperintensities in a periventricular and subcortical white ma tter distribution. White matter lesions are all above the tentorium. Probably no significant progress ion since the prior study of 04/24/2020. No large territory infarct. Ventricles and extra-axial spaces are normal. No inferior displacement of cerebellar tonsils. The sella turcica and pituitary gland are unremarkabl e. Dural venous sinuses and [place] demonstrate no abnormality on this unenhanced studies. Paranasal sinuses: Clear. Mastoid air cells: Normal. Calvarium and scalp: Intact. MR/MR head wo con* [id number] IMPRESSION: 1. No acute infarct. No mass. 2. Moderate chronic microvascular ischemic disease is unchanged since 04/24/20 20. More than expected for the patient's age. These findings can be related to small vessel ischemic disease, smoking, demyelinating disease and vasculitis.
--- NOTE | 2020-11-28 08:00 | MR_ITS ---
WS: [id number] MRA ANGIOGRAPHY [place] HISTORY: persistent/recurrent dizziness COMPARISON: 03/25/2017 TECHNIQUE: 3-D MR angiography is performed of the [place]. All images are reviewed including source images. Distal vertebral and basilar arteries are intact with no significant stenosis or plaque. Posterior ce rebral arteries are normal course and caliber. Posterior communicating arteries are both patent. Intracranial portion of the internal carotid arteries are normal course and caliber. Very mild lumina l irregularity involving the M1 segments bilaterally. No high-grade stenosis or aneurysm. M2 segments are normal. Anterior cerebral artery and the anterior communicating artery are negative. No occlusio ns or aneurysm. MR/MR angio head wo con [id number] IMPRESSION: 1. Very minimal atherosclerosis in the M1 segments bilaterally. No high-grade stenosis. 2. No aneurysms.
--- NOTE | 2020-11-28 08:15 | MR_ITS ---
WS: [id number] MR VENOGRAPHY HEAD 3-D noncontrast imaging performed through the cerebral veins. All imaging is reviewed. HISTORY: persistent/recurrent dizziness COMPARISON: None available. Excellent demonstration of the dural venous sinuses and cerebral veins. There are no filling defects to suggest acute or chronic thrombus. Flow artifact in the jugular veins. Superior sagittal sinus, s traight sinus and transverse sinuses are all patent with no significant thrombus. MR/[place] [id number] IMPRESSION: Normal MR venogram cerebral veins.
== END 2020-11-28 07:04 | disposition home or self-care (01) ==
LOC: RADSHAW 07:10
PROVIDERS: PCP Internal Medicine; Visit Provider Internal Medicine
DX: R42 Dizziness and giddiness (principal); I65.29 Occlusion and stenosis of unspecified carotid artery; I67.82 Cerebral ischemia
CPT/HCPCS: 70544; 70551

== ENCOUNTER 2020-12-04 19:29 | Emergency (ER) | payer MEDICARE, MEDICAID, SELFPAY ==
--- NOTE | 2020-12-04 19:32 | XRR_ITS ---
PROCEDURE INFORMATION: Exam: XR Chest Exam date and time: 12/04/2020 7:41 PM Age: 55 years old Clinical indication: Chest wall pain; Prior surgery; Surgery type: Catheter; Patient HX: Chest pain x tonight TECHNIQUE: Imaging protocol: XR of the chest. Views: 1 view. COMPARISON: CR XR chest 1V [id number] 10/02/2020 4:29 PM FINDINGS: Tubes, catheters and devices: Right-sided central venous catheter tip in the superior vena cava. Lungs: Mild pulmonary vascular congestion. Pleural spaces: Unremarkable. No pleural effusion. No pneumothorax. Heart/Mediastinum: Cardiomegaly. Bones/joints: Unremarkable. XR/XR chest 1V portable [id number] IMPRESSION: 1. Right-sided central venous catheter tip in the superior vena cava. 2. Cardiomegaly. 3. Mild pulmonary vascular congestion.
--- NOTE | 2020-12-04 19:33 | ECG_ITS ---
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 Measurements Intervals [place] Rate: 61 P: -89 IA: 180 QRS: -60 QRSD: 92 T: 24 QT: 424 QTc: 430 Interpretive Statements ECTOPIC ATRIAL RHYTHM LEFT ANTERIOR FASCICULAR BLOCK [QRS AXIS <= -45, QR IN I, RS IN II] POSSIBLE ANTERIOR MYOCARDIAL INFARCTION [30 ms Q WAVE IN V3/V4, OR R < 0.2 mV IN V4], PROBABLY OLD Compared to ECG 11/13/2020 22:59:34 Ectopic atrial rhythm now present Left anterior fascicular block now present Myocardial infarct finding now present Sinus bradycardia no longer present Left-axis deviation no longer present Electronically Signed On 12-05-2020 7:00:23 CDT by Soraya Ignacio M.D. [id number] f
[2020-12-04 20:15] VITALS: BP 181/85; PULSE 59; RESP 18; TEMP 36.4; O2SAT 95; BMI 33.3
--- NOTE | 2020-12-04 21:33 | ECG_ITS ---
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 Measurements Intervals [place] Rate: 58 P: ND: QRS: -84 QRSD: 92 T: 32 QT: 426 QTc: 422 Interpretive Statements SUPRAVENTRICULAR BRADYCARDIA MARKED LEFT AXIS DEVIATION [QRS AXIS < -30] POSSIBLE ANTERIOR MYOCARDIAL INFARCTION [30 ms Q WAVE IN V3/V4, OR R < 0.2 mV IN V4], PROBABLY OLD Compared to ECG 12/04/2020 19:59:22 Left-axis deviation now present Ectopic atrial rhythm no longer present Left anterior fascicular block no longer present Myocardial infarct finding still present Electronically Signed On 12-05-2020 20:40:33 CDT by Dong Pitt M.D. [id number]
--- NOTE | 2020-12-04 22:38 | ED_ITS ---
HPI - Chest Pain General: Chief Complaint: Chest Pain Stated Complaint: CP BEGAN THIS EVENING Time Seen by Provider: 12/04/20 22:35 Source: patient Mode of arrival: ambulatory Limitations: no limitations History of Present Illness: HPI narrative: 55-year-old female states she started having chest pain this afternoon at 3. States pain was a sharp pain in in the center of her chest. She denies any worsening or improving factors. States pain is currently a 4 out of 10. She denies any shortness of breath. She denies any diaphoresis or nausea or vomiting. Denies any cough or recent sick contacts. MD complaint: chest pain Associated symptoms: Deny abdominal pain, dyspnea, fever(s), nausea or vomiting Review of Systems Const: Denies: fever(s), chills, body aches or change in appetite Eyes: Denies: blurry vision or eye discomfort ENMT: Denies: throat pain or dental pain Card: Reports: chest pain Resp: Denies: dyspnea GI: Denies: abdominal pain, nausea, vomiting or diarrhea : Denies: dysuria Musc: Denies: neck pain or back pain Skin/Breast: Denies: rash Neuro: Denies: headache(s) Psych: Denies: depression [place]ug[place]/Lymph: Denies: easy bruising All/Imm: Denies: urticaria PFSH ED PFSH: Medical History Anxiety BPPV (benign paroxysmal positional vertigo) CAD (coronary artery disease) Carotid stenosis Chronic diastolic CHF (congestive heart failure) Chronic left sacroiliac joint pain Claustrophobia Diabetes mellitus Diverticulitis Elevated troponin End stage kidney disease End stage renal disease ESBL (extended spectrum beta-lactamase) producing bacteria infection DAILY (generalized anxiety disorder) Gastroparesis GERD (gastroesophageal reflux disease) Gram-negative bacteremia HTN (hypertension) Hyperlipidemia Hypothyroidism Major depression, recurrent DOROTEO on CPAP Partial nontraumatic amputation of left foot (~06/2019) Peripheral vascular disease Peritonitis associated with peritoneal dialysis Phantom pain Suicidal ideation TIA (transient ischemic attack) Vitamin D deficiency Surgical History AV (arteriovenous fistula) (~10/2020) H/O hysterectomy with oophorectomy History of appendectomy History of heart artery stent (~2018) LAD, done in [place], [place] History of hysterectomy History of left heart catheterization History of right below knee amputation Peritoneal dialysis catheter in place Removed due to recurrent peritonitis S/P cholecystectomy S/P PICC central line placement (~2019) Status post amputation of toe Family History Denies family history of CAD (coronary artery disease) Clotting disorder Dementia Bleeding disorder Social History Smoking and tobacco status: never smoked Alcohol intake: never Household members: spouse and family History of recent travel: No Physical Exam Const: COMMON NORMALS: no acute distress, patient oriented x3 and healthy appearing HENMT: COMMON NORMALS: normocephalic and atraumatic HEAD & SCALP: normocephalic and atraumatic Eye: COMMON NORMALS: Equal, round and reactive pupils present and EOMs intact bilaterally PUPIL: Yes Equal, round and reactive pupils present Neck/C-Spine: COMMON NORMALS: full ROM and supple Chest: COMMONS NORMALS: normal inspection of the chest and normal palpation of entire chest wall Resp: COMMON NORMALS: normal respiratory effort, No retractions, No use of accessory muscles and clear to auscultation bilaterally AUSCULTATION: clear to auscultation bilaterally Cardio: COMMON NORMALS: regular rate, regular rhythm and No murmurs present (Cardio) RATE: regular rate RHYTHM: regular rhythm GI: COMMON NORMALS: Normal to inspection, nondistended, normoactive bowel sounds present, Soft to palpation, non-tender and no masses PALPATION: Yes Soft to palpation Extremity: COMMON NORMALS: normal to inspection and full ROM Neuro: COMMON NORMALS: patient oriented x3, moves all extremities and no focal motor deficits Psych: COMMON NORMALS: mental status grossly normal, Normal thought process present and cooperative THOUGHT PROCESS: Normal thought process present Skin: COMMON NORMALS: no rashes or lesions noted and no wounds GENERAL SKIN EXAM: no rashes or lesions noted Course Vital Signs: Vital signs: Vital Signs Temperature 97.6 F 12/04/20 20:15 Pulse Rate 74 12/05/20 01:26 Respiratory Rate 20 H 12/05/20 01:26 Blood Pressure 120/72 12/05/20 01:26 Pulse Oximetry 96 12/05/20 01:26 MDM - Chest Pain MDM Narrative: Medical decision making narrative: Rizwana presents here with chest pain is atypical in nature. Her troponin here is at her baseline. She feels improved here and is requesting discharge. X-ray here is negative as well. She is stable for discharge is to follow-up with PCP and return if worsening. She understands agrees to plan. She has no signs of acute coronary syndrome. Lab Data: Labs: Lab Results 12/04/20 12/05/20 12/05/20 Range/Units 23:13 00:15 00:15 WBC 3.2 L (4.0-10.0) 10^3/ uL RBC 3.99 L (4.1-5.3) 10^6/u L Hgb 12.5 (11.5-15.3) g/dL Hct 38.5 (37.0-47.0) % MCV 96.5 (81-99) fL MCH 31.3 (28.0-34.0) pg MCHC 32.5 (30.0-36.0) g/dL RDW 14.4 (12.1-15.1) % Plt Count 129 L (130-400) 10^3/c mm MPV 11.5 H (7.4-10.4) fL Neut % (Auto) 63.6 % Lymph % (Auto) 22.2 % [place] % (Auto) 11.7 % Eos % (Auto) 2.2 % Baso % (Auto) 0.3 % Neut # (Auto) 2.00 (1.8-7.7) 10^3/u L Lymph # (Auto) 0.7 L (0.8-4.8) 10^3/u L [place] # (Auto) 0.4 (0.2-0.9) 10^3/u L Eos # (Auto) 0.1 (0.0-0.8) 10^3/u L Baso # (Auto) 0.0 (0.0-0.1) 10^3/u L Nucleated RBC % (a uto) 0 % Nucleated RBCs # 0.0 /100WBC Sodium 136 (136-145) mmol/L Potassium 3.5 (3.5-5.1) mmol/L Chloride 96 L (98-107) mmol/L Carbon Dioxide 23 (22-29) mmol/L Anion Gap 20.5 H (5-19) BUN 38 H (6-20) mg/dL Creatinine 5.9 H* (0.5-0.9) mg/dL GFR Calculation 7.4 L (90-130) mL/min Glucose 90 (65-115) mg/dL POC Glucose 101 (70-110) mg/dL Calculated Osmolal ity 291 (285-295) mOsm/k g Calcium 8.9 (8.5-10.5) mg/dL Total Bilirubin 0.4 (0.15-1.2) mg/dL AST 27 (0-32) U/L ALT 16 (0-33) U/L Alkaline Phosphata se 135 H (35-105) IU/L Troponin T Baselin e (0-10) ng/L Total Protein 6.4 L (6.6-8.7) g/dL Albumin 3.3 L (3.5-5.2) g/dL Globulin 3.1 (1.3-4.6) g/dL 12/05/20 Range/Units 00:15 WBC (4.0-10.0) 10^3/ uL RBC (4.1-5.3) 10^6/u L Hgb (11.5-15.3) g/dL Hct (37.0-47.0) % MCV (81-99) fL MCH (28.0-34.0) pg MCHC (30.0-36.0) g/dL RDW (12.1-15.1) % Plt Count (130-400) 10^3/c mm MPV (7.4-10.4) fL Neut % (Auto) % Lymph % (Auto) % [place] % (Auto) % Eos % (Auto) % Baso % (Auto) % Neut # (Auto) (1.8-7.7) 10^3/u L Lymph # (Auto) (0.8-4.8) 10^3/u L [place] # (Auto) (0.2-0.9) 10^3/u L Eos # (Auto) (0.0-0.8) 10^3/u L Baso # (Auto) (0.0-0.1) 10^3/u L Nucleated RBC % (a uto) % Nucleated RBCs # /100WBC Sodium (136-145) mmol/L Potassium (3.5-5.1) mmol/L Chloride (98-107) mmol/L Carbon Dioxide (22-29) mmol/L Anion Gap (5-19) BUN (6-20) mg/dL Creatinine (0.5-0.9) mg/dL GFR Calculation (90-130) mL/min Glucose (65-115) mg/dL POC Glucose (70-110) mg/dL Calculated Osmolal ity (285-295) mOsm/k g Calcium (8.5-10.5) mg/dL Total Bilirubin (0.15-1.2) mg/dL AST (0-32) U/L ALT (0-33) U/L Alkaline Phosphata se (35-105) IU/L Troponin T Baselin e 86 H (0-10) ng/L Total Protein (6.6-8.7) g/dL Albumin (3.5-5.2) g/dL Globulin (1.3-4.6) g/dL Imaging Data^: CXR: Attestation: I personally reviewed and interpreted this imaging study as follows: My impression: no acute abnormality EKG Data^: EKG 1: Attestation: I personally reviewed and interpreted this EKG as follows: EKG interpretation date: 12/04/20 EKG interpretation time: 19:59 Interpretation: nsr hr [address] or t wave abnormalities qrs 92 qtc 428 EKG 2: Attestation: I personally reviewed and interpreted this EKG as follows: EKG interpretation date: 12/04/20 EKG interpretation time: 22:47 Interpretation: nsr hr [address] or t wave abnormalities qrs 92 qtc 424 Discharge Plan Discharge Patient Disposition: Home Clinical Impression: Chest pain Qualifiers: Chest pain type: unspecified Qualified Code(s): R07.9 - Chest pain, unspecified Condition: Stable Prescriptions: New ondansetron 4 mg tablet,disintegrating 4 mg PO Q6H PRN (Reason: nausea and vomiting) Qty: 14 RF: 0 No Action nitroglycerin 0.4 mg tablet, sublingual 0.4 mg SUBLINGUAL Q5M PRN (Reason: Chest Pain) Qty: 25 RF: 6 clopidogrel 75 mg tablet 75 mg PO DAILY@08 Qty: 90 RF: 3 levothyroxine 112 mcg tablet 224 mcg PO DAILY@0800 Qty: 60 RF: 3 metoclopramide HCl [Reglan] 5 mg tablet 5 mg PO DAILY Qty: 30 RF: 0 aspirin 81 mg Tablet,Chewable 81 mg PO DAILY@08 RF: 0 pantoprazole 40 mg tablet,delayed release (DR/EC) 40 mg PO DAILY@08 RF: 0 Rocklatan 0.02-0.005 % Drops 1 drp OPHTHALMIC (EYE) DAILY@20 RF: 0 sennosides-docusate sodium 8.6-50 mg tablet 2 tab PO BID PRN (Reason: Constipation) RF: 0 atorvastatin 40 mg Tablet 40 mg PO DAILY@20 RF: 0 cholecalciferol (vitamin D3) [Vitamin D3] 25 mcg (1,000 unit) Tablet 25 mcg PO DAILY@08 RF: 0 potassium chloride 10 mEq Tablet Extended Release 10 meq PO DAILY@08 RF: 0 multivitamin [Multiple Vitamins] Tablet 1 tab PO DAILY@08 RF: 0 omega 9-brc-jqa-fish oil [Fish Oil] 300-1,000 mg Capsule,Delayed Release( Dr/Ec) 1 cap PO BID@08,20 RF: 0 brimonidine 0.2 % drops 1 drp ophthalmic (eye) BID@08,20 RF: 0 dorzolamide-timolol 22.3-6.8 mg/mL drops 1 drp ophthalmic (eye) BID@08,20 RF: 0 Lexapro 10 mg tablet 10 mg PO DAILY@08 RF: 0 losartan 25 mg tablet 25 mg PO DAILY Qty: 30 RF: 0 Lantus Solostar U-100 Insulin 100 unit/mL (3 mL) insulin pen 30 unit SUBCUT BID@08,20 Qty: 15 RF: 12 Discharge Orders: Discharge ED (Routine); Ordered 12/05/20 Ordered By: Carlos A Jeronimo Referrals: Yovany Leonardo MD [Primary Care Provider] - 1-3 days Discharge Diet: Advance as tolerated Discharge Activity: Resume usual activity Patient Instructions: Chest Pain (ED) Coding Level of Care Code ED Rn Disease Management for [place] Fwd Exam Comprehensive
[2020-12-04 23:15] LABS: Glucose Point of Care 101 mg/dL (70-110)
[2020-12-05 00:22] LABS: Basophils % 0.3 %; Eosinophils # 0.1 10^3/uL (0.0-0.8); Eosinophils % 2.2 %; Hematocrit 38.5 % (37.0-47.0); Hemoglobin 12.5 g/dL (11.5-15.3); Lymphocytes # 0.7 10^3/uL (0.8-4.8); Lymphocytes % 22.2 %; Mean Corpuscular HGB Conc 32.5 g/dL (30.0-36.0); Mean Corpuscular Hemoglobin 31.3 pg (28.0-34.0); Mean Corpuscular Volume 96.5 fL (81-99); Mean Platelet Volume 11.5 fL (7.4-10.4); Monocytes # 0.4 10^3/uL (0.2-0.9); Monocytes % 11.7 %; Neutrophils % 63.6 %; Nucleated Red Blood Cells % 0 %; Platelet Count 129 10^3/cmm (130-400); Red Blood Count 3.99 10^6/uL (4.1-5.3); Red Cell Distribution Width 14.4 % (12.1-15.1); White Blood Count 3.2 10^3/uL (4.0-10.0)
[2020-12-05 00:45] LABS: Troponin(5th) Baseline 86 ng/L (0-10)
[2020-12-05 00:46] LABS: Alanine Aminotransferase 16 U/L (0-33); Albumin Level 3.3 g/dL (3.5-5.2); Alkaline Phosphatase 135 IU/L (35-105); Blood Urea Nitrogen 38 mg/dL (6-20); Calcium 8.9 mg/dL (8.5-10.5); Carbon Dioxide 23 mmol/L (22-29); Chloride 96 mmol/L (98-107); Globulin 3.1 g/dL (1.3-4.6); Glomerular Filtration Rate 7.4 mL/min (90-130); Glucose 90 mg/dL (65-115); Osmolality Calculated 291 mOsm/kg (285-295); Sodium 136 mmol/L (136-145); Total Bilirubin 0.4 mg/dL (0.15-1.2); Total Protein 6.4 g/dL (6.6-8.7)
[2020-12-05 00:49] LABS: Slide Review Slide Review Perform
[2020-12-05 00:50] LABS: Anion Gap 20.5 (5-19); Aspartate Amino Transferase 27 U/L (0-32); Potassium 3.5 mmol/L (3.5-5.1)
[2020-12-05] MEDS: ondansetron 2 mg/ML SDV 2 mL 4 MG IM (01:20)
[2020-12-05 01:26] VITALS: BP 120/72; PULSE 74; RESP 20; O2SAT 96
== END 2020-12-05 01:27 | disposition home or self-care (01) ==
PROVIDERS: Emergency Provider Emergency Medicine; PCP Internal Medicine
DX: R07.9 Chest pain, unspecified (principal); Z79.02 Long term (current) use of antithrombotics/antiplatelets; Z79.82 Long term (current) use of aspirin; Z79.4 Long term (current) use of insulin; I25.10 Atherosclerotic heart disease of native coronary artery without angina pectoris; I13.2 Hypertensive heart and chronic kidney disease with heart failure and with stage 5 chronic kidney disease, or end stage renal disease; E11.22 Type 2 diabetes mellitus with diabetic chronic kidney disease; N18.6 End stage renal disease; I50.32 Chronic diastolic (congestive) heart failure; E78.5 Hyperlipidemia, unspecified; Z86.73 Personal history of transient ischemic attack (TIA), and cerebral infarction without residual deficits
CPT/HCPCS: 36416; 71045; 80053; 82962; 84484; 85025; 93005; 96372; 99283; J2405

== ENCOUNTER 2020-12-07 08:57 | Inpatient (IN) | payer MEDICARE, MEDICAID, SELFPAY ==
[2020-12-07] VITALS (21 sets, daily range): BP systolic 151–191; BP diastolic 65–89; PULSE 64–88; RESP 15–28; TEMP 36.4–37.6; O2SAT 86–98; BMI 31.9
--- NOTE | 2020-12-07 09:30 | PC.NURSE ---
pt 86% on room air during triage. pt placed on supplemental oxygen. ED provider notified.
--- NOTE | 2020-12-07 09:35 | XRR_ITS ---
PROCEDURE INFORMATION: Exam: XR Chest Exam date and time: 12/07/2020 9:35 AM Age: 55 years old Clinical indication: Dyspnea; Additional info: Dizziness TECHNIQUE: Imaging protocol: XR of the chest. Views: 1 view. COMPARISON: CR (CHEST, ) 12/04/2020 7:41 PM FINDINGS: Tubes, catheters and devices: A dialysis catheter is present with the tip projecting in the SVC. Lungs: There is subsegmental atelectasis in the lung bases. There is no focal airspace consolidation. Pleural spaces: Unremarkable. No pleural effusion. No pneumothorax. Heart/Mediastinum: The cardiac silhouette is normal for the AP projection. Bones/joints: Unremarkable. XR/XR chest 1V portable [id number] IMPRESSION: 1. A dialysis catheter projects on the SVC. 2. Mild bilateral subsegmental atelectasis.
--- NOTE | 2020-12-07 09:38 | ECG_ITS ---
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
--- NOTE | 2020-12-07 09:41 | W.ED.GENADLT ---
HPI - General Adult General: Chief complaint: General Medical Stated complaint: diarrhea, dizzy Time Seen by Provider: 12/07/20 09:26 Source: patient Mode of arrival: wheelchair Limitations: no limitations History of Present Illness: HPI narrative: Patient reports that she is diarrhea for the past 5 days. She states the diarrhea is intermittent. She was actually seen in the hospital on December 04 for chest pain. She states that she did not have diarrhea at that time. She states she has been dizzy since last night with sensation of feel like she might faint. She reports dialyzing yesterday. She denies any shortness of breath or fever. She does not wear oxygen at home. However her oxygen saturation is 86 to 88% on room air here. She does report being on antibiotic about 3 weeks ago that she does not know the name of for urinary tract infection. complaint: Dizziness, diarrhea Onset (ago): day(s) (5) Severity: moderate Relieving factors: none Exacerbating factors: none Associated symptoms: Reports malaise, nausea, weakness and other (Diarrhea, dizziness); Deny chest pain, confusion, cough, diaphoresis, decreased appetite, dyspnea, fevers/chills, headache(s), rash, palpitations, seizures, short of breath, syncope or vomiting Review of Systems Const: Reports: malaise; Denies: diaphoresis Eyes: Denies: change in vision ENMT: Denies: throat pain Card: Denies: chest pain, palpitations or syncope Resp: Denies: dyspnea GI: Reports: nausea and diarrhea; Denies: abdominal pain or vomiting : Denies: flank pain Musc: Denies: neck pain or back pain Skin/Breast: Denies: rash Neuro: Denies: headache(s), numbness in extremities or confusion Psych: Denies: anxiety [place]/Lymph: Denies: enlarged lymph nodes PFSH ED PFSH: Medical History Anxiety BPPV (benign paroxysmal positional vertigo) CAD (coronary artery disease) Carotid stenosis Chronic diastolic CHF (congestive heart failure) Chronic left sacroiliac joint pain Claustrophobia Diabetes mellitus Diverticulitis Elevated troponin End stage kidney disease End stage renal disease ESBL (extended spectrum beta-lactamase) producing bacteria infection DAILY (generalized anxiety disorder) Gastroparesis GERD (gastroesophageal reflux disease) Gram-negative bacteremia HTN (hypertension) Hyperlipidemia Hypothyroidism Major depression, recurrent DOROTEO on CPAP Partial nontraumatic amputation of left foot (~06/2019) Peripheral vascular disease Peritonitis associated with peritoneal dialysis Phantom pain Suicidal ideation TIA (transient ischemic attack) Vitamin D deficiency Surgical History AV (arteriovenous fistula) (~10/2020) H/O hysterectomy with oophorectomy History of appendectomy History of heart artery stent (~2018) LAD, done in [place], [place] History of hysterectomy History of left heart catheterization History of right below knee amputation Peritoneal dialysis catheter in place Removed due to recurrent peritonitis S/P cholecystectomy S/P PICC central line placement (~2019) Status post amputation of toe Family History Denies family history of CAD (coronary artery disease) Clotting disorder Dementia Bleeding disorder Social History Smoking and tobacco status: never smoked Alcohol intake: never Household members: spouse and family History of recent travel: No Physical Exam Const: COMMON NORMALS: no acute distress, patient oriented x3, no limitations and well nourished GENERAL APPEARANCE: cooperative HENMT: COMMON NORMALS: normocephalic and atraumatic HEAD & SCALP: normocephalic and atraumatic FACE & SINUS: normal facial exam Eye: COMMON NORMALS: EOMs intact bilaterally Neck/C-Spine: COMMON NORMALS: full ROM, no lymphadenopathy, supple and no meningeal signs GENERAL: Yes normal visual inspection Lymph: LYMPHATIC: no lymphadenopathy noted Chest: COMMONS NORMALS: normal inspection of the chest and normal palpation of entire chest wall CHEST: No Ecchymosis present and No rash Resp: COMMON NORMALS: normal respiratory effort (However, oxygen saturation on room air ranges from 86 to 88%.), No retractions, No use of accessory muscles and clear to auscultation bilaterally EFFORT & INSPECTION: No respiratory distress AUSCULTATION: clear to auscultation bilaterally OTHER: Oxygen saturation 98% on 2 L by nasal cannula. Patient states she does not wear oxygen at home. Cardio: COMMON NORMALS: regular rate, regular rhythm and Peripheral pulses 2+ throughout JUGULAR VENOUS DISTENTION: no JVD RATE: regular rate RHYTHM: regular rhythm PERIPHERAL PULSES: Peripheral pulses 2+ throughout GI: COMMON NORMALS: Normal to inspection, nondistended, normoactive bowel sounds present, Soft to palpation and non-tender PALPATION: Yes Soft to palpation : COMMON NORMALS: Yes no CVA tenderness BLADDER/KIDNEY EXAM: Yes no CVA tenderness Back/Pelvis: COMMON NORMALS: no CVA tenderness Extremity: COMMON NORMALS: full ROM and capillary refill normal NARRATIVE EXTREMITY EXAM: Patient has below the knee amputation on the right. Neuro: COMMON NORMALS: patient oriented x3, CN's II-XII intact bilaterally, no focal motor deficits and no sensory deficits noted MENINGEAL SIGNS: Yes no meningeal signs Psych: COMMON NORMALS: mental status grossly normal and Normal thought process present THOUGHT PROCESS: Normal thought process present Skin: COMMON NORMALS: no rashes or lesions noted and no wounds GENERAL SKIN EXAM: no rashes or lesions noted Course Vital Signs: Vital signs: Vital Signs Temperature 97.5 F L 12/07/20 09:27 Pulse Rate 64 12/07/20 09:59 Respiratory Rate 18 12/07/20 09:59 Blood Pressure 162/78 12/07/20 09:59 Pulse Oximetry 97 12/07/20 09:59 MDM - General Adult MDM Narrative: Medical decision making narrative: Patient does not wear oxygen at home. She denies tobacco use. Past surgical history includes right below the knee amputation, AV fistula, coronary stents x2, past medical history includes chronic renal failure on hemodialysis, coronary disease, patient denies any lung disease. Rocephin given IM due to difficulty getting IV access. 1100: d/w dr. palomino hospitalist. admit. Lab Data: Attestation: I reviewed the patient's lab results. Labs: Lab Results 12/07/20 12/07/20 12/07/20 Range/Units 10:05 10:05 10:34 WBC 1.9 L (4.0-10.0) 10^3/ uL RBC 3.71 L (4.1-5.3) 10^6/u L Hgb 11.6 (11.5-15.3) g/dL Hct 36.5 L (37.0-47.0) % MCV 98.4 (81-99) fL MCH 31.3 (28.0-34.0) pg MCHC 31.8 (30.0-36.0) g/dL RDW 14.3 (12.1-15.1) % Plt Count 95 L (130-400) 10^3/c mm MPV 11.8 H (7.4-10.4) fL Neut % (Auto) 60.8 % Lymph % (Auto) 29.3 % [place] % (Auto) 9.4 % Eos % (Auto) 0.0 % Baso % (Auto) 0.0 % Neut # (Auto) 1.16 L (1.8-7.7) 10^3/u L Lymph # (Auto) 0.6 L (0.8-4.8) 10^3/u L [place] # (Auto) 0.2 (0.2-0.9) 10^3/u L Eos # (Auto) 0.0 (0.0-0.8) 10^3/u L Baso # (Auto) 0.0 (0.0-0.1) 10^3/u L Nucleated RBC % (a uto) 0 % Nucleated RBCs # 0.0 /100WBC Urine Color Yellow (Yellow) Urine Appearance Hazy A (CLEAR) Urine pH 8 H (5-7) Ur Specific Gravit y 1.010 (1.005-1.030) Urine Protein 3+ H (Negative) Urine Glucose (UA) 2+ (Normal) Urine Ketones Negative (Negative) Urine Blood 2+ H (Negative) Urine Nitrate Negative (Negative) Urine Bilirubin Neg (Negative) Prot Sulfosalicyli c Acd Positive (Negative) Urine Urobilinogen Norm (Negative) mg/dL Ur Leukocyte Yara ase 2+ H (Negative) Urine RBC 5-10 H (0-2) /hpf Urine WBC Too numerous to c nt H (0-5) /hpf Ur Squamous Epith Cells None (0-5) /hpf Amorphous Sediment Not Reportable Urine Bacteria 2+ H (NONE) /hpf SARS-CoV-2 Ag (Rap id) Positive H (Negative) Imaging Data^: CXR: Attestation: I personally reviewed and interpreted this imaging study as follows: My impression: Mild pulmonary congestion. Dialysis catheter in right chest. EKG Data^: EKG 1: Attestation: I personally reviewed and interpreted this EKG as follows: EKG interpretation date: 12/07/20 EKG interpretation time: 09:43 Prior EKG tracings: not available for review Interpretation: EKG shows normal sinus rhythm with heart rate of 63. Left axis. Borderline first-degree AV block. Normal QRS. Normal ST segment. Normal T waves. Normal P waves. Normal QT interval. Impression normal sinus rhythm with left axis. Borderline first-degree AV block. Computer generated interpretation: Chest X-Ray 12/07/20 09:35 IMPRESSION: 1. A dialysis catheter projects on the SVC. 2. Mild bilateral subsegmental atelectasis. Critical Care Time Critical Care Time: Critical Care Time: Yes Total Critical Care Time: 35 Attestation: hypoxia; see orders. Discharge Plan Discharge Patient Disposition: Admitted As Inpatient Clinical Impression: Dizziness, Chronic progressive renal failure, stage 4 (severe), Diarrhea, Hypoxia, UTI (urinary tract infection), Pneumonia due to COVID-19 virus, Leukopenia Condition: Stable Coding Level of Care Code ED Plug Sorter for Chg Fwd Exam Comprehensive
[2020-12-07 10:23] LABS: Protein Urine 3+ (Negative); Urine Appearance Hazy (CLEAR); Urine Color Yellow (Yellow); pH Urine 8 (5-7)
[2020-12-07 10:24] LABS: Add Urine Microscopic? YES; Bilirubin Urine Neg (Negative); Blood Urine 2+ (Negative); Glucose Urine UA 2+ (Normal); Ketones Urine Negative (Negative); Leukocyte Esterase Urine 2+ (Negative); Nitrate Urine Negative (Negative); Sulfosalicylic Acid Urine Positive (Negative); Urobilinogen Urine Norm (Negative)
[2020-12-07 10:25] LABS: Add Urine Culture? Yes; Bacteria Urine 2+ /hpf; WBC Urine TOO NUMEROUS TO CNT /hpf (0-5)
[2020-12-07 10:32] LABS: SARS Covid-2 Antigen Positive (Negative)
[2020-12-07 10:47] LABS: Hematocrit 36.5 % (37.0-47.0); Hemoglobin 11.6 g/dL (11.5-15.3); Lymphocytes # 0.6 10^3/uL (0.8-4.8); Lymphocytes % 29.3 %; Mean Corpuscular HGB Conc 31.8 g/dL (30.0-36.0); Mean Corpuscular Hemoglobin 31.3 pg (28.0-34.0); Mean Corpuscular Volume 98.4 fL (81-99); Mean Platelet Volume 11.8 fL (7.4-10.4); Monocytes # 0.2 10^3/uL (0.2-0.9); Monocytes % 9.4 %; Neutrophils # 1.16 10^3/uL (1.8-7.7); Neutrophils % 60.8 %; Nucleated Red Blood Cells % 0 %; Platelet Count 95 10^3/cmm (130-400); Red Blood Count 3.71 10^6/uL (4.1-5.3); Red Cell Distribution Width 14.3 % (12.1-15.1); White Blood Count 1.9 10^3/uL (4.0-10.0)
[2020-12-07] MEDS: cefTRIAXone 1,000 MG in lidocaine 1% 2.1 ML 1 MG IM (11:02)
[2020-12-07] MEDS: sodium chloride 0.9% 500 ML 250 ML IV (11:04)
[2020-12-07 11:19] LABS: Blood Urea Nitrogen 27 mg/dL (6-20); Carbon Dioxide 26 mmol/L (22-29); Chloride 95 mmol/L (98-107); Glomerular Filtration Rate 7.3 mL/min (90-130); Glucose 96 mg/dL (65-115); NT Pro B Type Natriuretic Pept 6963 pg/mL (0-125); Osmolality Calculated 285 mOsm/kg (285-295); Sodium 135 mmol/L (136-145)
[2020-12-07] MEDS: ondansetron 2 mg/ML SDV 2 mL 4 MG IM (11:24)
[2020-12-07 11:25] LABS: Anion Gap 17.4 (5-19); Potassium 3.4 mmol/L (3.5-5.1)
[2020-12-07 11:26] LABS: Troponin T (5th) Once 133 ng/L (0-10)
--- NOTE | 2020-12-07 11:37 | CTR_ITS ---
PROCEDURE INFORMATION: Exam: CTA Chest With Contrast Exam date and time: 12/07/2020 11:37 AM Age: 55 years old Clinical indication: Shortness of breath; Additional info: Hypoxia TECHNIQUE: Imaging protocol: Computed tomographic angiography of the chest with contrast. 3D rendering (Not supervised by radiologist): MIP and/or 3D reconstructed images were created by the technologist. Radiation optimization: All CT scans at this facility use at least one of these dose optimization techniques: automated exposure control; mA and/or kV adjustment per patient size (includes targeted exams where dose is matched to clinical indication); or iterative reconstruction. Contrast material: VISIPAQUE 320; Contrast volume: 59 ml; Contrast route: INTRAVENOUS (IV); COMPARISON: CT angio chest PE protcl [id number] 01/17/2020 12:56 PM RADIATION DOSE METRICS: Total DLP (mGy-cm): 497.49 FINDINGS: Pulmonary arteries: No pulmonary emboli. Aorta: No aortic aneurysm. No aortic dissection. Lungs: Bilateral partial lower lung consolidation, patchy right upper lung ground-glass opacities. Interstitial thickening. Pleural spaces: No pneumothorax. No pleural effusion. Heart: Minimal cardiomegaly, no pericardial effusion. Coronary artery stent. Lymph nodes: No significant adenopathy. Diaphragm: Minimal right hemidiaphragm elevation. Bones/joints: No acute findings. Soft tissues: Unremarkable. CT/CT angio chest PE protcl [id number] IMPRESSION: Findings consistent with bilateral pneumonia or edema. Radiation Dose CTDIVOL = (mGy): DLP = 497.49 (mGy-cm)
--- NOTE | 2020-12-07 12:04 | ED_ITS ---
HPI - General Adult General: Chief complaint: General Medical Stated complaint: diarrhea, dizzy Time Seen by Provider: 12/07/20 09:26 Source: patient Mode of arrival: wheelchair Limitations: no limitations History of Present Illness: Relieving factors: none Exacerbating factors: none PFSH ED PFSH: Medical History (Updated 12/07/20 @ 17:23 by Jamal Still MD) Anxiety BPPV (benign paroxysmal positional vertigo) CAD (coronary artery disease) Carotid stenosis Chronic diastolic CHF (congestive heart failure) Chronic left sacroiliac joint pain Claustrophobia Diabetes mellitus Diverticulitis Elevated troponin End stage kidney disease End stage renal disease ESBL (extended spectrum beta-lactamase) producing bacteria infection DAILY (generalized anxiety disorder) Gastroparesis GERD (gastroesophageal reflux disease) Gram-negative bacteremia HTN (hypertension) Hyperlipidemia Hypothyroidism Major depression, recurrent DOROTEO on CPAP Partial nontraumatic amputation of left foot (~06/2019) Peripheral vascular disease Peritonitis associated with peritoneal dialysis Phantom pain Suicidal ideation TIA (transient ischemic attack) Vitamin D deficiency Surgical History AV (arteriovenous fistula) (~10/2020) H/O hysterectomy with oophorectomy History of appendectomy History of heart artery stent (~2018) LAD, done in [place], [place] History of hysterectomy History of left heart catheterization History of right below knee amputation Peritoneal dialysis catheter in place Removed due to recurrent peritonitis S/P cholecystectomy S/P PICC central line placement (~2019) Status post amputation of toe Family History Denies family history of CAD (coronary artery disease) Clotting disorder Dementia Bleeding disorder Social History Smoking and tobacco status: never smoked Alcohol intake: never Household members: spouse and family History of recent travel: No Course Vital Signs: Vital signs: Vital Signs Temperature 98.7 F 12/07/20 14:11 Pulse Rate 69 12/07/20 15:12 Respiratory Rate 16 12/07/20 15:05 Blood Pressure 163/65 12/07/20 14:11 Pulse Oximetry 98 12/07/20 15:13 MDM - General Adult MDM Narrative: Medical decision making narrative: d/w Abby Berkowitz CRNA. will consult for line placement. Lab Data: Attestation: I reviewed the patient's lab results. Labs: Lab Results 12/07/20 12/07/20 12/07/20 Range/Units 10:05 10:05 10:34 WBC 1.9 L (4.0-10.0) 10^3/ uL RBC 3.71 L (4.1-5.3) 10^6/u L Hgb 11.6 (11.5-15.3) g/dL Hct 36.5 L (37.0-47.0) % MCV 98.4 (81-99) fL MCH 31.3 (28.0-34.0) pg MCHC 31.8 (30.0-36.0) g/dL RDW 14.3 (12.1-15.1) % Plt Count 95 L (130-400) 10^3/c mm MPV 11.8 H (7.4-10.4) fL Neut % (Auto) 60.8 % Lymph % (Auto) 29.3 % [place] % (Auto) 9.4 % Eos % (Auto) 0.0 % Baso % (Auto) 0.0 % Neut # (Auto) 1.16 L (1.8-7.7) 10^3/u L Lymph # (Auto) 0.6 L (0.8-4.8) 10^3/u L [place] # (Auto) 0.2 (0.2-0.9) 10^3/u L Eos # (Auto) 0.0 (0.0-0.8) 10^3/u L Baso # (Auto) 0.0 (0.0-0.1) 10^3/u L Nucleated RBC % (a uto) 0 % Nucleated RBCs # 0.0 /100WBC PT (12.1-14.9) SECO NDS INR (0.8-1.2) D-Dimer (0-0.59) ug/mIFE U Sodium (136-145) mmol/L Potassium (3.5-5.1) mmol/L Chloride (98-107) mmol/L Carbon Dioxide (22-29) mmol/L Anion Gap (5-19) BUN (6-20) mg/dL Creatinine (0.5-0.9) mg/dL GFR Calculation (90-130) mL/min Glucose (65-115) mg/dL Estimat Average Gl ucose Hemoglobin A1c Calculated Osmolal ity (285-295) mOsm/k g Lactic Acid (0.5-2.2) mmol/L Calcium (8.5-10.5) mg/dL Phosphorus (2.5-4.5) mg/dL Magnesium (1.7-2.3) mg/dL Ferritin (15-150) ng/mL Lactate Dehydrogen ase (135-214) U/L Creatine Kinase (26-192) U/L Troponin T Gen 5 n g/L (0-10) ng/L C-Reactive Protein (0.0-4.9) mg/L NT-Pro-B Natriuret Pep (0-125) pg/mL Triglycerides (0-150) mg/dL Cholesterol (0-200) mg/dL LDL Cholesterol, C alc (50-129) mg/dL HDL Cholesterol (60-100) mg/dL LDL/HDL Ratio (0.00-3.22) RATI O Cholesterol/HDL Ra justin (0.0-4.40) mg/dL Procalcitonin (0-0.5) ng/mL TSH (0.27-4.20) uIU/ mL Urine Color Yellow (Yellow) Urine Appearance Hazy A (CLEAR) Urine pH 8 H (5-7) Ur Specific Gravit y 1.010 (1.005-1.030) Urine Protein 3+ H (Negative) Urine Glucose (UA) 2+ (Normal) Urine Ketones Negative (Negative) Urine Blood 2+ H (Negative) Urine Nitrate Negative (Negative) Urine Bilirubin Neg (Negative) Prot Sulfosalicyli c Acd Positive (Negative) Urine Urobilinogen Norm (Negative) mg/dL Ur Leukocyte Yara ase 2+ H (Negative) Urine RBC 5-10 H (0-2) /hpf Urine WBC Too numerous to c nt H (0-5) /hpf Ur Squamous Epith Cells None (0-5) /hpf Amorphous Sediment Not Reportable Urine Bacteria 2+ H (NONE) /hpf SARS-CoV-2 Ag (Rap id) Positive H (Negative) 12/07/20 12/07/20 12/07/20 Range/Units 10:34 10:34 10:34 WBC (4.0-10.0) 10^3/ uL RBC (4.1-5.3) 10^6/u L Hgb (11.5-15.3) g/dL Hct (37.0-47.0) % MCV (81-99) fL MCH (28.0-34.0) pg MCHC (30.0-36.0) g/dL RDW (12.1-15.1) % Plt Count (130-400) 10^3/c mm MPV (7.4-10.4) fL Neut % (Auto) % Lymph % (Auto) % [place] % (Auto) % Eos % (Auto) % Baso % (Auto) % Neut # (Auto) (1.8-7.7) 10^3/u L Lymph # (Auto) (0.8-4.8) 10^3/u L [place] # (Auto) (0.2-0.9) 10^3/u L Eos # (Auto) (0.0-0.8) 10^3/u L Baso # (Auto) (0.0-0.1) 10^3/u L Nucleated RBC % (a uto) % Nucleated RBCs # /100WBC PT 14.50 (12.1-14.9) SECO NDS INR 1.10 (0.8-1.2) D-Dimer 1.28 H (0-0.59) ug/mIFE U Sodium 135 L (136-145) mmol/L Potassium 3.4 L (3.5-5.1) mmol/L Chloride 95 L (98-107) mmol/L Carbon Dioxide 26 (22-29) mmol/L Anion Gap 17.4 (5-19) BUN 27 H (6-20) mg/dL Creatinine 6.0 H* (0.5-0.9) mg/dL GFR Calculation 7.3 L (90-130) mL/min Glucose 96 (65-115) mg/dL Estimat Average Gl ucose Hemoglobin A1c Calculated Osmolal ity 285 (285-295) mOsm/k g Lactic Acid (0.5-2.2) mmol/L Calcium 8.0 L (8.5-10.5) mg/dL Phosphorus (2.5-4.5) mg/dL Magnesium (1.7-2.3) mg/dL Ferritin (15-150) ng/mL Lactate Dehydrogen ase (135-214) U/L Creatine Kinase (26-192) U/L Troponin T Gen 5 n g/L 133 H* (0-10) ng/L C-Reactive Protein (0.0-4.9) mg/L NT-Pro-B Natriuret Pep 6963 H (0-125) pg/mL Triglycerides (0-150) mg/dL Cholesterol (0-200) mg/dL LDL Cholesterol, C alc (50-129) mg/dL HDL Cholesterol (60-100) mg/dL LDL/HDL Ratio (0.00-3.22) RATI O Cholesterol/HDL Ra justin (0.0-4.40) mg/dL Procalcitonin (0-0.5) ng/mL TSH (0.27-4.20) uIU/ mL Urine Color (Yellow) Urine Appearance (CLEAR) Urine pH (5-7) Ur Specific Gravit y (1.005-1.030) Urine Protein (Negative) Urine Glucose (UA) (Normal) Urine Ketones (Negative) Urine Blood (Negative) Urine Nitrate (Negative) Urine Bilirubin (Negative) Prot Sulfosalicyli c Acd (Negative) Urine Urobilinogen (Negative) mg/dL Ur Leukocyte Yara ase (Negative) Urine RBC (0-2) /hpf Urine WBC (0-5) /hpf Ur Squamous Epith Cells (0-5) /hpf Amorphous Sediment Urine Bacteria (NONE) /hpf SARS-CoV-2 Ag (Rap id) (Negative) 12/07/20 12/07/20 12/07/20 Range/Units 10:34 10:34 10:34 WBC (4.0-10.0) 10^3/ uL RBC (4.1-5.3) 10^6/u L Hgb (11.5-15.3) g/dL Hct (37.0-47.0) % MCV (81-99) fL MCH (28.0-34.0) pg MCHC (30.0-36.0) g/dL RDW (12.1-15.1) % Plt Count (130-400) 10^3/c mm MPV (7.4-10.4) fL Neut % (Auto) % Lymph % (Auto) % [place] % (Auto) % Eos % (Auto) % Baso % (Auto) % Neut # (Auto) (1.8-7.7) 10^3/u L Lymph # (Auto) (0.8-4.8) 10^3/u L [place] # (Auto) (0.2-0.9) 10^3/u L Eos # (Auto) (0.0-0.8) 10^3/u L Baso # (Auto) (0.0-0.1) 10^3/u L Nucleated RBC % (a uto) % Nucleated RBCs # /100WBC PT (12.1-14.9) SECO NDS INR (0.8-1.2) D-Dimer (0-0.59) ug/mIFE U Sodium (136-145) mmol/L Potassium (3.5-5.1) mmol/L Chloride (98-107) mmol/L Carbon Dioxide (22-29) mmol/L Anion Gap (5-19) BUN (6-20) mg/dL Creatinine (0.5-0.9) mg/dL GFR Calculation (90-130) mL/min Glucose (65-115) mg/dL Estimat Average Gl ucose Hemoglobin A1c Calculated Osmolal ity (285-295) mOsm/k g Lactic Acid 0.7 (0.5-2.2) mmol/L Calcium (8.5-10.5) mg/dL Phosphorus 4.1 (2.5-4.5) mg/dL Magnesium 1.8 (1.7-2.3) mg/dL Ferritin 1780 H (15-150) ng/mL Lactate Dehydrogen ase 262 H (135-214) U/L Creatine Kinase 45 (26-192) U/L Troponin T Gen 5 n g/L (0-10) ng/L C-Reactive Protein 48.2 H (0.0-4.9) mg/L NT-Pro-B Natriuret Pep (0-125) pg/mL Triglycerides (0-150) mg/dL Cholesterol (0-200) mg/dL LDL Cholesterol, C alc (50-129) mg/dL HDL Cholesterol (60-100) mg/dL LDL/HDL Ratio (0.00-3.22) RATI O Cholesterol/HDL Ra justin (0.0-4.40) mg/dL Procalcitonin 0.23 (0-0.5) ng/mL TSH (0.27-4.20) uIU/ mL Urine Color (Yellow) Urine Appearance (CLEAR) Urine pH (5-7) Ur Specific Gravit y (1.005-1.030) Urine Protein (Negative) Urine Glucose (UA) (Normal) Urine Ketones (Negative) Urine Blood (Negative) Urine Nitrate (Negative) Urine Bilirubin (Negative) Prot Sulfosalicyli c Acd (Negative) Urine Urobilinogen (Negative) mg/dL Ur Leukocyte Yara ase (Negative) Urine RBC (0-2) /hpf Urine WBC (0-5) /hpf Ur Squamous Epith Cells (0-5) /hpf Amorphous Sediment Urine Bacteria (NONE) /hpf SARS-CoV-2 Ag (Rap id) (Negative) 12/07/20 12/07/20 Range/Units 10:34 10:34 WBC (4.0-10.0) 10^3/ uL RBC (4.1-5.3) 10^6/u L Hgb (11.5-15.3) g/dL Hct (37.0-47.0) % MCV (81-99) fL MCH (28.0-34.0) pg MCHC (30.0-36.0) g/dL RDW (12.1-15.1) % Plt Count (130-400) 10^3/c mm MPV (7.4-10.4) fL Neut % (Auto) % Lymph % (Auto) % [place] % (Auto) % Eos % (Auto) % Baso % (Auto) % Neut # (Auto) (1.8-7.7) 10^3/u L Lymph # (Auto) (0.8-4.8) 10^3/u L [place] # (Auto) (0.2-0.9) 10^3/u L Eos # (Auto) (0.0-0.8) 10^3/u L Baso # (Auto) (0.0-0.1) 10^3/u L Nucleated RBC % (a uto) % Nucleated RBCs # /100WBC PT (12.1-14.9) SECO NDS INR (0.8-1.2) D-Dimer (0-0.59) ug/mIFE U Sodium (136-145) mmol/L Potassium (3.5-5.1) mmol/L Chloride (98-107) mmol/L Carbon Dioxide (22-29) mmol/L Anion Gap (5-19) BUN (6-20) mg/dL Creatinine (0.5-0.9) mg/dL GFR Calculation (90-130) mL/min Glucose (65-115) mg/dL Estimat Average Gl ucose Cancelled Hemoglobin A1c Cancelled Calculated Osmolal ity (285-295) mOsm/k g Lactic Acid (0.5-2.2) mmol/L Calcium (8.5-10.5) mg/dL Phosphorus (2.5-4.5) mg/dL Magnesium (1.7-2.3) mg/dL Ferritin (15-150) ng/mL Lactate Dehydrogen ase (135-214) U/L Creatine Kinase (26-192) U/L Troponin T Gen 5 n g/L (0-10) ng/L C-Reactive Protein (0.0-4.9) mg/L NT-Pro-B Natriuret Pep (0-125) pg/mL Triglycerides 109 (0-150) mg/dL Cholesterol 84 (0-200) mg/dL LDL Cholesterol, C alc 36 L (50-129) mg/dL HDL Cholesterol 26 L (60-100) mg/dL LDL/HDL Ratio 1.38 (0.00-3.22) RATI O Cholesterol/HDL Ra justin 3.23 (0.0-4.40) mg/dL Procalcitonin (0-0.5) ng/mL TSH 0.11 L (0.27-4.20) uIU/ mL Urine Color (Yellow) Urine Appearance (CLEAR) Urine pH (5-7) Ur Specific Gravit y (1.005-1.030) Urine Protein (Negative) Urine Glucose (UA) (Normal) Urine Ketones (Negative) Urine Blood (Negative) Urine Nitrate (Negative) Urine Bilirubin (Negative) Prot Sulfosalicyli c Acd (Negative) Urine Urobilinogen (Negative) mg/dL Ur Leukocyte Yara ase (Negative) Urine RBC (0-2) /hpf Urine WBC (0-5) /hpf Ur Squamous Epith Cells (0-5) /hpf Amorphous Sediment Urine Bacteria (NONE) /hpf SARS-CoV-2 Ag (Rap id) (Negative) Discharge Plan Discharge Patient Disposition: Admitted As Inpatient Admit Provider: Maikol Lemos Clinical Impression: Acute kidney injury (nontraumatic), Dizziness, Chronic progressive renal f ailure, stage 4 (severe), Hypoxia, Pneumonia due to COVID-19 virus Diarrhea Qualifiers: Diarrhea type: unspecified type Qualified Code(s): R19.7 - Diarrhea, unspecified UTI (urinary tract infection) Qualifiers: Urinary tract infection type: site unspecified Hematuria presence: with hematuria Qualified Code(s): N39.0 - Urinary tract infection, site not specified Leukopenia Qualifiers: Leukopenia type: other Qualified Code(s): D72.818 - Other decreased white blood cell count Condition: Stable Coding Level of Care Code ED Intensive Care Unit Nurse for Maris Braden
--- NOTE | 2020-12-07 12:21 | CTR_ITS ---
PROCEDURE INFORMATION: Exam: CT Abdomen And Pelvis Without Contrast Exam date and time: 12/07/2020 12:21 PM Age: 55 years old Clinical indication: Abdominal pain; Generalized; Additional info: Diarrhea, abdominal pain, back pain, UTI TECHNIQUE: Imaging protocol: Computed tomography of the abdomen and pelvis without contrast. Radiation optimization: All CT scans at this facility use at least one of these dose optimization techniques: automated exposure control; mA and/or kV adjustment per patient size (includes targeted exams where dose is matched to clinical indication); or iterative reconstruction. COMPARISON: CT abdomen pelvis w con* [id number] 08/14/2020 9:48 AM RADIATION DOSE METRICS: Total DLP (mGy-cm): 2104.38 FINDINGS: Liver: No mass. Gallbladder and bile ducts: Cholecystectomy. No biliary ductal dilatation. Pancreas: Normal. No ductal dilation. Spleen: Normal. No splenomegaly. Adrenal glands: Normal. No mass. Kidneys and ureters: No hydronephrosis or perinephric edema. Stomach and bowel: Minimal small bowel dilatation, no wall thickening or pneumatosis. No colonic dilatation or mucosal thickening. Appendix: No evidence of appendicitis. Intraperitoneal space: Unremarkable. No free air. No significant fluid collection. Vasculature: No abdominal aortic aneurysm. Vascular calcifications. Lymph nodes: No significant adenopathy. Urinary bladder: Unremarkable as visualized. Reproductive: Hysterectomy. Bones/joints: No acute findings. Soft tissues: Fat containing umbilical hernia. CT/CT abdomen pelvis wo con [id number] IMPRESSION: Minimal nonspecific small bowel dilatation consistent with the clinical history of diarrhea. Radiation Dose CTDIVOL = (mGy): DLP = 2104.38 (mGy-cm)
--- NOTE | 2020-12-07 12:27 | PM.HP ---
Providers/Chief Complaint Admitting Physician: Maikol Lemos MD Primary Care Provider: Yovany Leoanrdo MD Chief Complaint: N/V/D, DIZZY History of Present Illness Rizwana Herzog is a 55 year old female with a past medical history of benign positional vertigo has had an extensive work-up for dizziness including MRI/MRV, CAD status post stenting x2, carotid artery stenosis, diastolic CHF, insulin-dependent type 2 diabetes mellitus, end-stage renal disease on hemodialysis getting through a tunneled dialysis catheter due to history of PD infection, bacteremia, hypertension, hyperlipidemia, hypothyroidism, diabetic gastroparesis, left lower 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 Patient tells me that for the last 2 weeks she is has not felt well, no fevers, fatigue, malaise, starting about on Wednesday she started developing profuse diarrhea, she was given antibiotics roughly 3 weeks ago, diarrhea is profuse, no bloody or black stools, no fevers, no loss of taste, no loss of smell, no chest pain, is not a smoker, no history of COPD, no history of asthma, she tells me that she started to develop shortness of breath early this morning, shortness of breath at rest, she has a history of a DVT in the left lower extremity that resulted in an amputation due to significant ischemia and necrosis according to patient. Patient lives with her , her is doing well, did not get Covid vaccine, no known exposure to Covid. She is also complaining of back pain, some flank pain, no dysuria, no hematuria, no history of kidney stones. in the emergency room patient was found to have a urinary tract infection, her COVID-19 was positive, she is on 2 L, hypertensive, complaining of shortness of breath, white blood cell count 1.9, platelet count 95, creatinine 6, potassium 2.4, sodium 135, BNP 6963, UA evidence of UTI, received IM Rocephin, Chest x-ray shows bilateral subsegmental atelectasis, troponin is 133, EKG no acute ST-T wave changes. During my examination, patient had some mild retractions, is on 2 L, complaining of shortness of breath. Were waiting on IV access, as patient appears dehydrated, and IV access is difficult, ER provider has contacted anesthesia team Review of Systems Const: Reports: fatigue and malaise; Denies: fever(s) or chills Eyes: Denies: change in vision or blurry vision ENMT: Denies: odynophagia, ear or mastoid pain or nasal congestion Card: Reports: lightheadedness; Denies: chest pain, palpitations, irregular heart rhythm, edema, syncope or pre-syncope Resp: Reports: dyspnea and non-productive cough; Denies: productive cough or wheezing GI: Reports: abdominal pain, nausea, vomiting and diarrhea; Denies: hematemesis, constipation, hematochezia or melena : Reports: flank pain; Denies: dysuria or urinary frequency Musc: Reports: back pain; Denies: neck pain Skin/Breast: Denies: rash Neuro: Reports: dizziness; Denies: headache(s) or vertigo Endo: Denies: polyuria or polydipsia Medications/Allergies Home Medications Medication Instructions Recorded Confirmed Last Taken Type aspirin 81 mg PO DAILY@06/25/19 12/07/20 12/06/20 History multivitamin [Multiple Vitamins] 1 tab PO DAILY@06/30/19 12/07/20 11/13/20 History omega 8-aqi-ine-fish oil [Fish Oil] 1 cap PO BID@01/17/20 12/07/20 12/06/20 History brimonidine 1 drp OPHTHALMIC (EYE) BID@01/31/20 12/07/20 12/06/20 History dorzolamide-timolol 1 drp OPHTHALMIC (EYE) BID@01/31/20 12/07/20 12/06/20 History pantoprazole 40 mg PO DAILY@02/16/20 12/07/20 12/06/20 History nitroglycerin 0.4 mg sublingual 0.4 mg SUBLINGUAL Q5M PRN #25 tab 03/26/20 12/07/20 04/18/20 Rx tablet Rocklatan 1 drp OPHTHALMIC (EYE) DAILY@04/18/20 12/07/20 12/06/20 History sennosides-docusate sodium 2 tab PO BID PRN 04/18/20 12/07/20 04/28/20 History atorvastatin 40 mg PO DAILY@20 05/14/20 12/07/20 12/06/20 History cholecalciferol (vitamin D3) 25 mcg PO DAILY@08 05/14/20 12/07/20 12/06/20 History [Vitamin D3] potassium chloride 10 meq PO DAILY@08 07/10/20 12/07/20 11/13/20 History clopidogrel 75 mg tablet 75 mg PO DAILY@08 #90 tab 08/08/20 12/07/20 12/06/20 Rx levothyroxine 112 mcg tablet 224 mcg PO DAILY@0800 #60 tab 09/02/20 12/07/20 12/06/20 Rx escitalopram oxalate [Lexapro] 10 mg PO DAILY@11/13/20 12/07/20 12/06/20 History Lantus Solostar U-100 Insulin 30 unit SUBCUT BID@ #15 ml 11/14/20 12/07/20 12/06/20 Rx losartan 25 mg PO DAILY #30 tab 11/14/20 12/07/20 12/06/20 Rx ondansetron 4 mg PO Q6H PRN #14 tab 12/05/20 12/07/20 Unknown Rx Allergies Allergy/AdvReac Type Severity Reaction Status Date / Time metformin [From Glucophage] Allergy Severe Unknown Verified 12/04/20 20:19 venlafaxine [From Effexor] Allergy Severe ADR-Shakine Verified 12/04/20 20:19 ss PFSH Acute PFSH: Medical History (Updated 12/07/20 @ 12:42 by Maikol Lemos MD) Anxiety BPPV (benign paroxysmal positional vertigo) CAD (coronary artery disease) Carotid stenosis Chronic diastolic CHF (congestive heart failure) Chronic left sacroiliac joint pain Claustrophobia Diabetes mellitus Diverticulitis Elevated troponin End stage kidney disease End stage renal disease ESBL (extended spectrum beta-lactamase) producing bacteria infection DAILY (generalized anxiety disorder) Gastroparesis GERD (gastroesophageal reflux disease) Gram-negative bacteremia HTN (hypertension) Hyperlipidemia Hypothyroidism Major depression, recurrent DOROTEO on CPAP Partial nontraumatic amputation of left foot (~06/2019) Peripheral vascular disease Peritonitis associated with peritoneal dialysis Phantom pain Suicidal ideation TIA (transient ischemic attack) Vitamin D deficiency Surgical History AV (arteriovenous fistula) (~10/2020) H/O hysterectomy with oophorectomy History of appendectomy History of heart artery stent (~2018) LAD, done in [place], [place] History of hysterectomy History of left heart catheterization History of right below knee amputation Peritoneal dialysis catheter in place Removed due to recurrent peritonitis S/P cholecystectomy S/P PICC central line placement (~2019) Status post amputation of toe Family History Denies family history of CAD (coronary artery disease) Clotting disorder Dementia Bleeding disorder Social History Smoking and tobacco status: never smoked Alcohol intake: never Household members: spouse and family History of recent travel: No Vitals/I&O/Wt Last Vital Signs Temp 97.5 F L 12/07/20 09:27 Pulse 66 12/07/20 11:05 Resp 24 H 12/07/20 11:05 BP 167/82 12/07/20 11:05 Pulse Ox 94 12/07/20 11:05 Weight last 48 hrs Weight 87.09 kg Physical Exam Const: COMMON NORMALS: no acute distress and patient oriented x3 GENERAL APPEARANCE: cooperative HENMT: COMMON NORMALS: normocephalic HEAD & SCALP: normocephalic Eye: COMMON NORMALS: Equal, round and reactive pupils present GENERAL EYE: appearance normal, both eyes and all related structures PUPIL: Yes Equal, round and reactive pupils present Neck/C-Spine: COMMON NORMALS: full ROM, no lymphadenopathy and no JVD THYROID: Thyroid normal Lymph: LYMPHATIC: no lymphadenopathy noted Resp: COMMON NORMALS: normal respiratory effort, No retractions and No use of accessory muscles AUSCULTATION: diminished lung sounds diffuse Cardio: COMMON NORMALS: no JVD, regular rate, regular rhythm, S1 normal heart sound present, S2 normal heart sound present, No gallops present (Cardio), No clicks present (Cardio) and No murmurs present (Cardio) RATE: regular rate RHYTHM: regular rhythm HEART SOUNDS: S1 normal heart sound present and S2 normal heart sound present GI: COMMON NORMALS: Normal to inspection, nondistended, normoactive bowel sounds present and Soft to palpation PALPATION: Yes Soft to palpation Extremity: COMMON NORMALS: no pedal edema Neuro: COMMON NORMALS: patient oriented x3, CN's II-XII intact bilaterally, moves all extremities and no focal motor deficits Psych: COMMON NORMALS: mental status grossly normal, Normal thought process present and cooperative THOUGHT PROCESS: Normal thought process present Data : 12/07/20 10:34 12/07/20 10:34 Micro: Microbiology 12/07/20 10:34 Blood Culture - Preliminary Blood SPECIMEN COLLECTED A&P Assessment and plan (1) Acute respiratory failure with hypoxia: Acute hypoxic respiratory failure secondary to COVID-19 -Currently on 2 L, slight retractions, complaints shortness of breath -Leukopenia, white blood cell count 1.9 -Thrombocytopenia 95,000 -Rapid Covid positive -Chest x-ray no focal pneumonia Plan: -Admit to cardiac stepdown unit -We will have a PICC line placed -COVID-19 isolation -Obtain a confirmatory Covid PCR -Obtain an ABG, ferritin, pro-[place], CRP, troponin series -Advair, albuterol, vitamin C, zinc vitamin D -Rocephin, azithromycin -Obtain CT angiogram of the chest - blood cultures, sputum cultures, urine cultures -Decadron 6 mg IV push daily -Oxygen therapy, monitor respiratory status closely -Given patient is dialysis dependent, creatinine, remdesivir has not been studied in dialysis patients, there is a theoretical risk of accumulation of [id number], currently is on 2 L, if her respiratory status worsens or oxygen requirements increased will discuss with patient about pursuing treatment of remdesivir after discussion of the risk and benefits -Start gentle IV hydration at 75 cc an hour due to dehydration, diarrhea -Full code -Heparin for DVT prophylaxis Dehydration, secondary diarrhea, continue IV hydration Diarrhea, likely secondary to Covid, but did use antibiotics roughly 3 weeks days ago, IV hydration as above, C. difficile, stool studies Urinary tract infection, continue Rocephin follow urine cultures, blood cultures, CT scan abdomen pelvis Leukopenia, secondary COVID-19 Thrombocytopenia, lightheadedness COVID-19 Dizziness, secondary dehydration, secondary to BPpv NSTEMI, troponin I 33, EKG no acute ST-T wave changes, no chest pain complaints, creatinine 6.3, but does have shortness of breath, history of CAD status post stenting x2 Plan -Serial troponins, serial EKGs -Monitor for chest pain -Telemetry monitoring -Continue aspirin, Plavix, statin -Obtain a cardiac echocardiogram End-stage renal disease, on hemodialysis, consult nephrology, does not look fluid overloaded insulin-dependent type 2 diabetes mellitus, low-dose sliding scale, A1c Status: Acute (2) Pneumonia due to COVID-19 virus: Status: Acute (3) Diarrhea: Status: Acute (4) UTI (urinary tract infection): Status: Acute Qualifiers: Hematuria presence: with hematuria Urinary tract infection type: site unspecified Qualified Code(s): N39.0 - Urinary tract infection, site not specified; R31.9 - Hematuria, unspecified (5) Leukopenia: Status: Acute Qualifiers: Leukopenia type: other Qualified Code(s): D72.818 - Other decreased white blood cell count (6) Carotid stenosis: Status: Acute Qualifiers: Laterality: bilateral Qualified Code(s): I65.23 - Occlusion and stenosis of bilateral carotid arteries (7) Dizziness: Status: Acute (8) DOROTEO on CPAP: Status: Chronic (9) Hyperlipidemia: Status: Chronic Qualifiers: Hyperlipidemia type: unspecified Qualified Code(s): E78.5 - Hyperlipidemia, unspecified (10) CAD (coronary artery disease): Status: Acute Qualifiers: Coronary Disease-Associated Artery/Lesion type: [place] artery [place] vs. transplanted heart: [place] heart Associated angina: without angina Qualified Code(s): I25.10 - Atherosclerotic heart disease of [place] coronary artery without angina pectoris (11) Chronic diastolic CHF (congestive heart failure): Status: Acute (12) Diabetes mellitus: Status: Acute Qualifiers: Diabetes mellitus type: type 2 Diabetes mellitus superintendent terminal insulin use: with superintendent terminal use Diabetes mellitus complication status: with neurologic complications Diabetes mellitus complication detail: with polyneuropathy Qualified Code(s): E11.42 - Type 2 diabetes mellitus with diabetic polyneuropathy; Z79.4 - senior care (current) use of insulin (13) HTN (hypertension): Status: Acute Qualifiers: Hypertension type: essential hypertension Qualified Code(s): I10 - Essential (primary) hypertension (14) Hypothyroidism: Status: Acute Qualifiers: Hypothyroidism type: acquired Qualified Code(s): E03.9 - Hypothyroidism, unspecified (15) End-stage renal disease on hemodialysis: Status: Acute (16) NSTEMI (non-ST elevated myocardial infarction): Status: Acute Attestations Medical Necessity Statement*: Patient requires hospitalization, inpatient, greater than 2 midnights, for acute respiratory failure secondary COVID-19, diarrhea, dehydration, UTI, leukopenia, thrombocytopenia, dizziness, NSTEMI Coding Level of Care Code Acute Cake Puncher for g Fwd Diagnoses Acute respiratory failure with hypoxia J96.01 Pneumonia due to COVID-19 virus U07.1; J12.82 Diarrhea R19.7 UTI (urinary tract infection) N39.0; R31.9 Hematuria presence: with hematuria Urinary tract infection type: site unspecified Leukopenia D72.818 Leukopenia type: other Carotid stenosis I65.23 Laterality: bilateral Dizziness R42 DOROTEO on CPAP G47.33; Z99.89 Hyperlipidemia E78.5 Hyperlipidemia type: unspecified CAD (coronary artery disease) I25.10 Coronary Disease-Associated Artery/Lesion type: [place] artery [place] vs. transplanted heart: [place] heart Associated angina: without angina Chronic diastolic CHF (congestive heart failure) I50.32 Diabetes mellitus E11.42; Z79.4 Diabetes mellitus type: type 2 Diabetes mellitus superintendent terminal insulin use: with jail use Diabetes mellitus complication status: with neurologic complications Diabetes mellitus complication detail: with polyneuropathy HTN (hypertension) I10 Hypertension type: essential hypertension Hypothyroidism E03.9 Hypothyroidism type: acquired End-stage renal disease on hemodialysis N18.6; Z99.2 NSTEMI (non-ST elevated myocardial infarction) I21.4
[2020-12-07 12:48] LABS: D Dimer 1.28 ug/mIFEU (0-0.59)
[2020-12-07 12:52] LABS: Lactic Sepsis W/Reflex 0.7 mmol/L (0.5-2.2)
[2020-12-07 12:53] LABS: C Reactive Protein 48.2 mg/L (0.0-4.9); Magnesium 1.8 mg/dL (1.7-2.3); Phosphorus 4.1 mg/dL (2.5-4.5)
[2020-12-07 12:57] LABS: ABG PCO2 42.6 mmHg (35-45); ABG PH Result 7.44 (7.35-7.45); Arterial Blood Gas Hematocrit 36.9 % (37-47); Base Excess ABG 4.3 mmol/L (-2.0-2.0); Blood Gas Allen Test Pos; Blood Gas Sample Type Arterial; PO2 ABG 94.4 mmHg (80.0-100.0)
[2020-12-07 12:58] LABS: Blood Gas Operator Identificat ED; Blood Gas Sample Site Radial, right; Oxygen Device NC
[2020-12-07 13:01] LABS: Procalcitonin 0.23 ng/mL (0-0.5)
[2020-12-07 13:11] LABS: Ferritin 1780 ng/mL (15-150)
--- NOTE | 2020-12-07 13:37 | PM.CONSULT ---
Providers/Reason For Consult Consulting Physician/Specialty*: christelle bullard md/ telenephrology Reason for Consult*: ESRD care Attending Physician: Maikol Lemos MD Primary Care Provider: Yovany Leonardo MD History of Present Illness History of Present Illness Rizwana Herzog is a 55 year old female ESRD HD MWF, IDDM, HTN, RT BKA, CAD, anemia, hypothyroidism, anxiety/ depression, diastolic dysfunction. H/o PD related peritonitis- now on HD via [facility] Pt here w/ diarrhea, nausea, lightheaded, states she is below her EDW. States she did not miss HD. C/O back pain. In Er diagnosed w/ COVID-19 and UTI. getting iv access placed. Review of Systems General: Reports: 10 or more systems reviewed and unremarkable except in HPI and below Narrative: weak, fevers, diarrhea, sob, nausea, dysuria, flank and back pain, lighheadedness, abd pain Meds/Allergies Home Medications and Allergies Home Medications Medication Instructions Recorded Confirmed Last Taken Type aspirin 81 mg PO DAILY@06/25/19 12/07/20 12/06/20 History multivitamin [Multiple Vitamins] 1 tab PO DAILY@06/30/19 12/07/20 11/13/20 History omega 0-xim-gpm-fish oil [Fish Oil] 1 cap PO BID@01/17/20 12/07/20 12/06/20 History brimonidine 1 drp OPHTHALMIC (EYE) BID@01/31/20 12/07/20 12/06/20 History dorzolamide-timolol 1 drp OPHTHALMIC (EYE) BID@01/31/20 12/07/20 12/06/20 History pantoprazole 40 mg PO DAILY@02/16/20 12/07/20 12/06/20 History nitroglycerin 0.4 mg sublingual 0.4 mg SUBLINGUAL Q5M PRN #25 tab 03/26/20 12/07/20 04/18/20 Rx tablet Rocklatan 1 drp OPHTHALMIC (EYE) DAILY@04/18/20 12/07/20 12/06/20 History sennosides-docusate sodium 2 tab PO BID PRN 04/18/20 12/07/20 04/28/20 History atorvastatin 40 mg PO DAILY@05/14/20 12/07/20 12/06/20 History cholecalciferol (vitamin D3) 25 mcg PO DAILY@08 05/14/20 12/07/20 12/06/20 History [Vitamin D3] potassium chloride 10 meq PO DAILY@08 07/10/20 12/07/20 11/13/20 History clopidogrel 75 mg tablet 75 mg PO DAILY@08 #90 tab 08/08/20 12/07/20 12/06/20 Rx levothyroxine 112 mcg tablet 224 mcg PO DAILY@0800 #60 tab 09/02/20 12/07/20 12/06/20 Rx escitalopram oxalate [Lexapro] 10 mg PO DAILY@11/13/20 12/07/20 12/06/20 History Lantus Solostar U-100 Insulin 30 unit SUBCUT BID@ #15 ml 11/14/20 12/07/20 12/06/20 Rx losartan 25 mg PO DAILY #30 tab 11/14/20 12/07/20 12/06/20 Rx ondansetron 4 mg PO Q6H PRN #14 tab 12/05/20 12/07/20 Unknown Rx Allergies Allergy/AdvReac Type Severity Reaction Status Date / Time metformin [From Glucophage] Allergy Severe Unknown Verified 12/04/20 20:19 venlafaxine [From Effexor] Allergy Severe ADR-Shakine Verified 12/04/20 20:19 ss PFSH Acute PFSH: Medical History (Updated 12/07/20 @ 12:42 by Maikol Lemos MD) Anxiety BPPV (benign paroxysmal positional vertigo) CAD (coronary artery disease) Carotid stenosis Chronic diastolic CHF (congestive heart failure) Chronic left sacroiliac joint pain Claustrophobia Diabetes mellitus Diverticulitis Elevated troponin End stage kidney disease End stage renal disease ESBL (extended spectrum beta-lactamase) producing bacteria infection DAILY (generalized anxiety disorder) Gastroparesis GERD (gastroesophageal reflux disease) Gram-negative bacteremia HTN (hypertension) Hyperlipidemia Hypothyroidism Major depression, recurrent DOROTEO on CPAP Partial nontraumatic amputation of left foot (~06/2019) Peripheral vascular disease Peritonitis associated with peritoneal dialysis Phantom pain Suicidal ideation TIA (transient ischemic attack) Vitamin D deficiency Surgical History AV (arteriovenous fistula) (~10/2020) H/O hysterectomy with oophorectomy History of appendectomy History of heart artery stent (~2018) LAD, done in [place], [place] History of hysterectomy History of left heart catheterization History of right below knee amputation Peritoneal dialysis catheter in place Removed due to recurrent peritonitis S/P cholecystectomy S/P PICC central line placement (~2019) Status post amputation of toe Family History Denies family history of CAD (coronary artery disease) Clotting disorder Dementia Bleeding disorder Social History Smoking and tobacco status: never smoked Alcohol intake: never Household members: spouse and family History of recent travel: No Vitals/I&O/Wt Last Vital Signs Temp 97.5 F L 12/07/20 09:27 Pulse 69 12/07/20 12:00 Resp 24 H 12/07/20 12:00 BP 167/72 12/07/20 12:00 Pulse Ox 95 12/07/20 12:00 Weight last 48 hrs Weight 87.09 kg Physical Exam Narrative: EXAM NARRATIVE: obese, uncomfortable, using nc 02 heent- nc/at, eomi, anicteric neck supple lung - poor air movement heart reg abd soft, nt, nd ext Rt BKA neuro- a,a, o x 3 Data Micro: Micro: Microbiology 12/07/20 10:34 Blood Culture - Pr eliminary Blood SPECIMEN COLLE ELEANOR A&P Additional A&P Information 55 yr old female 1. ESRD - HD MWF- assess in am for extra HD- k is normal -if gets contrast ctscan, we will dialyze w/in [address] scan 2. COVID-19 pna- per medicine -if need remdesicir- renal dose QOD -abg pending 3. UTI- f/u ur cx- renal dose abx 4. leukopenia and mild thrombocytopenia- ANC 1.16 5. dm care 6. normal phos 7. h/o CAD and trop 133, elevated bnp -if stable, hd in am- hold ivf 8. check tsh meds reviewed seen and examined w/ rN- telehealth visit discussed w/ Dr. Lemos Consult Attestations Medical Necessity Statement: COVID-19+, per medicine Time Spent in Patient Care: Greater than 35 minutes (>than 50% of time spent in counselling and/or direct pt care on unit). Coding Level of Care Code Acute Psychology Technician for Maris Braden
[2020-12-07 13:38] LABS: LAB Peripheral Smear Sent for Review
--- NOTE | 2020-12-07 13:42 | XRR_ITS ---
PROCEDURE INFORMATION: Exam: XR Chest Exam date and time: 12/07/2020 1:42 PM Age: 55 years old Clinical indication: Device placement; Patient HX: R picc placement; Additional info: Picc line placement TECHNIQUE: Imaging protocol: XR of the chest. Views: 1 view. COMPARISON: CR (CHEST, ) 12/07/2020 9:39 AM FINDINGS: Tubes, catheters and devices: A right arm PICC is present with tip projecting in the right axillary vein. A dialysis catheter projects on the SVC. Lungs: There is mild subsegmental atelectasis in the lung bases. There is mild pulmonary vascular congestion which may indicate mild volume overload. Pleural spaces: Unremarkable. No pleural effusion. No pneumothorax. Heart/Mediastinum: The cardiac silhouette is enlarged but unchanged. Bones/joints: Unremarkable. XR/XR chest 1V portable [id number] IMPRESSION: 1. A right arm PICC is present with the tip projecting in the right axillary vein. 2. Dialysis catheter in the SVC. 3. Stable cardiomegaly and mild vascular congestion.
[2020-12-07 13:43] LABS: Creatine Phosphokinase 45 U/L (26-192)
[2020-12-07 13:55] LABS: Lactate Dehydrogenase 262 U/L (135-214)
[2020-12-07 14:30] LABS: Chol HDL Ratio 3.23 mg/dL (0.0-4.40); Cholesterol 84 mg/dL (0-200); HDL Cholesterol 26 mg/dL (60-100); LDL Cholesterol Calculated 36 mg/dL (50-129); LDL HDL Ratio 1.38 RATIO (0.00-3.22); Thyroid Stimulating Hormone 0.11 uIU/mL (0.27-4.20); Triglycerides 109 mg/dL (0-150)
--- NOTE | 2020-12-07 14:38 | PC.NURSE ---
MIDLINE RIGHT ARM Attempted to insert PICC RIGHT arm but catheter would only go in 25 cm and would stop. It would not advance any further. I believe I had the same problem last time I placed a PICC on this patient. MIDLINE placed. Primary nurse notified.
[2020-12-07] MEDS: dexamethasone 4 mg/mL INJ 6 MG IVP (15:08)
[2020-12-07] MEDS: heparin 5,000 unit/mL INJ 1 mL 5000 UNIT SUBCUT (15:08)
[2020-12-07] MEDS: pantoprazole 40 mg SDV IVP (15:09)
[2020-12-07] MEDS: zinc gluconate 50 mg Tablet PO (15:09)
--- NOTE | 2020-12-07 15:45 | PC.NURSE ---
FROM ER Pt is weak, flat affect. Denies any pain at this time. Noted pt is on 2 L NC of oxygen. Pt has a tunneled hemodialysis catheter in right upper chest area. Pt has midline catheter on right mid axillary upper arm. Pt has a left upper arm fistula that has not been used per patient. oriented pt to staff and call use.
[2020-12-07] MEDS: azithromycin 500 MG in sodium chloride 0.9% 250 ML 250 MG IV (16:03)
[2020-12-07] MEDS: labetalol 5 mg/mL SDV 20mL 10 MG IVP ×2 (16:17→21:05)
[2020-12-07 16:33] LABS: Estmated Average Glucose 120; Hemoglobin A1C 5.8 % (4.0-6.0)
[2020-12-07] MEDS: sodium chloride 0.9% 1,000 ML 75 ML IV (16:33)
--- NOTE | 2020-12-07 16:34 | PC.NURSE ---
notified Dr Lemos on pt's BP 188/89 and if need to continue IV at 75 mls/hr continuously as ordered. telephone order read back administer IV as ordered and give PRN Labetalol as ordered. will monitor pt.
[2020-12-07] MEDS: ascorbic acid 500 mg Tablet PO (18:04)
[2020-12-07 18:06] LABS: Glucose Point of Care 132 mg/dL (70-110)
[2020-12-07 19:20] LABS: Troponin(5th) Baseline 130 ng/L (0-10)
[2020-12-07 20:08] LABS: Glucose Point of Care 206 mg/dL (70-110)
--- NOTE | 2020-12-07 20:12 | ECG_ITS ---
[facility] Test Date: 2020-12-07 Pat Name: Rizwana Herzog Department: Room: 108 Gender: Female Length Control Tester: : 1965 Requested By: Maikol Lemos Order Number: [id number] Reading MD: ARIEL TUCKER Measurements Intervals [place] Rate: 70 P: OR: QRS: -52 QRSD: 97 T: 35 QT: 422 QTc: 458 Interpretive Statements SUPRAVENTRICULAR RHYTHM MARKED LEFT AXIS DEVIATION [QRS AXIS < -30] ANTEROLATERAL MYOCARDIAL INFARCTION [40+ ms Q WAVE IN I/aVL/V3-V6], OF INDETERMINATE AGE Compared to ECG 12/07/2020 09:41:50 Supraventricular rhythm now present Sinus rhythm no longer present Myocardial infarct finding still present Electronically Signed On 12-09-2020 18:55:59 CDT by ARIEL TUCKER [id number]
[2020-12-07 20:42] LABS: Troponin 5 2HR 119.6 ng/L (0-10); Troponin 5 2HR Delta -10.4 ABS# (0-10)
[2020-12-07] MEDS: albuterol 8 gm MDI 2 PUFF INHALATION (20:43)
[2020-12-07] MEDS: atorvastatin 40 mg Tablet PO (20:48)
[2020-12-07] MEDS: brimonidine 0.2% Op Soln 5 mL Btl 1 DROP EYE-BOTH (20:48)
[2020-12-07] MEDS: dorzolamide/timolol Op Soln 10 mL Btl 1 DROP EYE-BOTH (20:48)
[2020-12-08] VITALS (19 sets, daily range): BP systolic 129–188; BP diastolic 58–79; PULSE 60–76; RESP 14–25; TEMP 36.6–37.7; O2SAT 91–99
--- NOTE | 2020-12-08 00:12 | ECG_ITS ---
[facility] Test Date: 2020-12-08 Pat Name: Rizwana Herzog Department: Room: 108 Gender: Female Grades 1 Thru 6 Visiting Teacher: : 1965 Requested By: Maikol Lemos Order Number: [id number] Reading MD: ARIEL TUCKER Measurements Intervals [place] Rate: 65 P: [place]: QRS: 265 QRSD: 98 T: 51 QT: 432 QTc: 451 Interpretive Statements SUPRAVENTRICULAR RHYTHM MARKED RIGHT AXIS DEVIATION [QRS AXIS > 100] POSSIBLE ANTERIOR MYOCARDIAL INFARCTION [30 ms Q WAVE IN V3/V4, OR R < 0.2 mV IN V4], OF INDETERMINATE AGE Compared to ECG 12/07/2020 20:47:06 Right-axis deviation now present Left-axis deviation no longer present Myocardial infarct finding still present Electronically Signed On 12-09-2020 18:55:52 CDT by ARIEL TUCKER [id number]
[2020-12-08 01:39] LABS: Hemoglobin 10.8 g/dL (11.5-15.3); Lymphocytes # 0.2 10^3/uL (0.8-4.8); Lymphocytes % 13.4 %; Mean Corpuscular HGB Conc 30.9 g/dL (30.0-36.0); Mean Corpuscular Hemoglobin 30.7 pg (28.0-34.0); Mean Corpuscular Volume 99.4 fL (81-99); Mean Platelet Volume 12.5 fL (7.4-10.4); Monocytes # 0.1 10^3/uL (0.2-0.9); Monocytes % 4.7 %; Neutrophils # 1.03 10^3/uL (1.8-7.7); Neutrophils % 81.1 %; Nucleated Red Blood Cells % 0 %; Platelet Count 82 10^3/cmm (130-400); Red Blood Count 3.52 10^6/uL (4.1-5.3); Red Cell Distribution Width 14.4 % (12.1-15.1); White Blood Count 1.3 10^3/uL (4.0-10.0)
[2020-12-08 01:58] LABS: Troponin 5 6HR Delta -23.9 ng/L (0-12)
[2020-12-08 01:59] LABS: Troponin 5 6HR 106.1 ng/L (0-10)
[2020-12-08 02:18] LABS: Slide Review Slide Review Perform
[2020-12-08 02:22] LABS: Alanine Aminotransferase 15 U/L (0-33); Albumin Level 2.9 g/dL (3.5-5.2); Alkaline Phosphatase 107 IU/L (35-105); Anion Gap 16.6 (5-19); Aspartate Amino Transferase 23 U/L (0-32); Blood Urea Nitrogen 33 mg/dL (6-20); Calcium 8.1 mg/dL (8.5-10.5); Carbon Dioxide 23 mmol/L (22-29); Chloride 101 mmol/L (98-107); Globulin 2.7 g/dL (1.3-4.6); Glucose 202 mg/dL (65-115); Magnesium 1.5 mg/dL (1.7-2.3); Osmolality Calculated 297 mOsm/kg (285-295); Phosphorus 5.4 mg/dL (2.5-4.5); Potassium 3.6 mmol/L (3.5-5.1); Sodium 137 mmol/L (136-145); Total Bilirubin 0.2 mg/dL (0.15-1.2); Total Protein 5.6 g/dL (6.6-8.7)
[2020-12-08] MEDS: pantoprazole 40 mg SDV IVP ×2 (02:26→14:31)
[2020-12-08] MEDS: heparin 5,000 unit/mL INJ 1 mL 5000 UNIT SUBCUT (02:26)
[2020-12-08] MEDS: sodium chloride 0.9% 1,000 ML 75 ML IV ×2 (04:08→07:41)
[2020-12-08] MEDS: labetalol 5 mg/mL SDV 20mL 10 MG IVP (04:09)
[2020-12-08 04:12] LABS: Calcium 7.6 mg/dL (8.5-10.5)
[2020-12-08 04:16] LABS: Parathyroid Hormone 706.2 pg/mL (15-65)
[2020-12-08 06:35] LABS: Glucose Point of Care 153 mg/dL (70-110)
[2020-12-08] MEDS: escitalopram 10 mg Tablet PO (07:29)
[2020-12-08] MEDS: aspirin 81 mg Chew Tablet PO (07:29)
[2020-12-08] MEDS: ascorbic acid 500 mg Tablet PO ×2 (07:30→17:38)
[2020-12-08] MEDS: zinc gluconate 50 mg Tablet PO (07:30)
[2020-12-08] MEDS: levothyroxine 112 mcg Tablet 224 MCG PO (07:30)
[2020-12-08] MEDS: clopidogrel 75 mg Tablet PO (07:30)
[2020-12-08] MEDS: dorzolamide/timolol Op Soln 10 mL Btl 1 DROP EYE-BOTH ×2 (07:41→19:58)
[2020-12-08] MEDS: brimonidine 0.2% Op Soln 5 mL Btl 1 DROP EYE-BOTH ×2 (07:43→19:58)
--- NOTE | 2020-12-08 07:56 | P.PN_ITS ---
Subjective Subjective: Interval history: weak, sob, bipap at night. still w/ diarrhea. Medications: Reviewed: Yes Medication Review Details: Current Medications Acetaminophen (Acetaminophen 325 Mg Tablet) 650 mg PO Q6H PRN PRN Reason: Mild/Mod Pain Or Temp >/= 101 Albuterol Sulfate (Albuterol 8 Gm Mdi) 2 puff INHALATION Q4H.RESPIRATORY PRN PRN Reason: SHORTNESS OF BREATH Last Admin: 12/07/20 20:43 Dose: 2 puff Documented by: Ascorbic Acid (Ascorbic Acid 500 Mg Tablet) 500 mg PO BID [facility] Last Admin: 12/08/20 07:30 Dose: 500 mg Documented by: Aspirin (Aspirin 81 Mg Chew Tablet) 81 mg PO DAILY@ [facility] Last Admin: 12/08/20 07:29 Dose: 81 mg Documented by: Atorvastatin Calcium (Atorvastatin 40 Mg Tablet) 40 mg PO DAILY@20 [facility] Last Admin: 12/07/20 20:48 Dose: 40 mg Documented by: Brimonidine Tartrate (Brimonidine 0.2% Op Soln 5 Ml Btl) 1 drop EYE-BOTH BID@ [facility] Last Admin: 12/08/20 07:43 Dose: 1 drop Documented by: Clopidogrel Bisulfate (Clopidogrel 75 Mg Tablet) 75 mg PO DAILY@ [facility] Last Admin: 12/08/20 07:30 Dose: 75 mg Documented by: Dexamethasone (Dexamethasone 4 Mg/Ml Inj) 6 mg IVP Q24H [facility] Last Admin: 12/07/20 15:08 Dose: 6 mg Documented by: Dextrose (Dextrose 50% Syringe 50 Ml) 25 ml IVP ONCE PRN; Protocol PRN Reason: hypoglycemia protocol Dextrose (Dextrose 50% Syringe 50 Ml) 50 ml IVP PRN PRN; Protocol PRN Reason: hypoglycemia protocol Dorzolamide/Timolol (Dorzolamide/Timolol Op Soln 10 Ml Btl) 1 drop EYE-BOTH BID@ [facility] Last Admin: 12/08/20 07:41 Dose: 1 drop Documented by: Escitalopram Oxalate (Escitalopram 10 Mg Tablet) 10 mg PO DAILY@08 [facility] Last Admin: 12/08/20 07:29 Dose: 10 mg Documented by: Glucagon (Glucagon 1 Mg/Ml Inj 1 Ml) 1 mg IM ONCE PRN; Protocol PRN Reason: Adult Acute Hypoglycemia Prot. Heparin Sodium (Beef Lung) (Heparin 5,000 Unit/Ml Inj 1 Ml) 5,000 unit SUBCUT Q12H [facility] Last Admin: 12/08/20 02:26 Dose: 5,000 unit Documented by: Ceftriaxone Sodium 1,000 mg/ (Sodium Chloride) 50 mls @ 100 mls/hr IV Q24H [facility]; Protocol Azithromycin 500 mg/ Sodium (Chloride) 250 mls @ 250 mls/hr IV Q24H [facility]; Protocol Last Infusion: 12/07/20 17:24 Dose: Infused Documented by: Insulin Aspart (Insulin Aspart 100 Unit/1 Ml) 0 unit SUBCUT TIDWM [facility]; Protocol Last Admin: 12/08/20 07:30 Dose: 2 unit Documented by: Labetalol HCl (Labetalol 5 Mg/Ml Sdv 20ml) 10 mg IVP Q4H PRN PRN Reason: FOR SBP>180, or DBP>100, HOLD IF HR<60 Last Admin: 12/08/20 04:09 Dose: 10 mg Documented by: Levothyroxine Sodium (Levothyroxine 112 Mcg Tablet) 224 mcg PO DAILY@0800 [facility] Last Admin: 12/08/20 07:30 Dose: 224 mcg Documented by: Morphine Sulfate (Morphine 4 Mg/Ml Sdv 1 Ml) 1 mg IVP Q4H PRN PRN Reason: SEVERE PAIN Naloxone HCl (Naloxone 0.4 Mg/Ml Sdv) 0.1 mg IVP Q2M PRN PRN Reason: OPIATERV Nitroglycerin (Nitroglycerin 0.4 Mg Sublingual Tablet) 0.4 mg SUBLINGUAL Q5M PRN PRN Reason: Chest Pain Non-Formulary Medication (Netarsudil-Latanoprost [Rocklatan]) 1 drop EYEAFF DAILY@20 [facility] Last Admin: 12/07/20 20:57 Dose: Not Given Documented by: Non-Formulary Medication (Bruce [id number]-Fish Oil [Fish Oil]) 1 cap PO BID@08, [facility] Last Admin: 12/08/20 07:39 Dose: Not Given Documented by: Ondansetron HCl (Ondansetron 2 Mg/Ml Sdv 2 Ml) 4 mg IVP Q8H PRN PRN Reason: vomiting, or N/V if npo Pantoprazole Sodium (Pantoprazole 40 Mg Sdv) 40 mg IVP Q12H [facility] Last Admin: 12/08/20 02:26 Dose: 40 mg Documented by: Fluticasone/Salmeterol (Fluticasone-Salmeterol 250-50 Diskus) 1 puff INHALATION BID.RESPIRATORY [facility] Last Admin: 12/07/20 20:43 Dose: 1 puff Documented by: Senna/Docusate Sodium (Sennosides-Docusate Tablet) 2 tab PO BID PRN PRN Reason: Constipation Zinc Gluconate (Zinc Gluconate 50 Mg Tablet) 50 mg PO DAILY [facility] Last Admin: 12/08/20 07:30 Dose: 50 mg Documented by: Vitals/I&O/Wt Last Vital Signs Temp 99.1 F 12/07/20 20:00 Pulse 62 12/08/20 06:27 Resp 19 H 12/08/20 06:22 BP 175/70 12/08/20 06:22 Pulse Ox 98 12/08/20 06:27 12/07/20 12/08/20 12/08/20 22:59 06:59 14:59 Intake Total 750 / 752.1 2044.75 / 2796.85 266.25 / 266.25 Output Total 100 / 100 Balance 750 / 752.1 1944.75 / 2696.85 266.25 / 266.25 Weight last 48 hrs Weight 87.09 kg Physical Exam Narrative: EXAM NARRATIVE: obese, using nc 02 heent- nc/at, eomi, anicteric neck supple lung - crackles and ronchi b/l heart reg abd soft, nt, nd ext Rt BKA neuro- a,a, o x 3 Data : 12/08/20 01:26 12/08/20 01:26 Micro: Microbiology 12/07/20 19:00 C.difficile Toxin B Gene (PCR) - Final Stool - Stool Aspirate 12/07/20 18:42 Blood Culture - Preliminary Blood SPECIMEN COLLECTED 12/07/20 10:34 Blood Culture - Preliminary Blood SPECIMEN COLLECTED A&P Additional A&P Information 55 yr old female 1. ESRD - HD MWF- as PNA, SOB, volume overloaded and had CTA yesterdya- will di alyze today 3.5 hrs, 3k, remove 3l as tolerated -check hep serologies -pth 706- zemplar/ calcitriol 2. COVID-19 pna- per medicine -if need remdesicir- renal dose QOD 3. diarrhea- CT abd/ pelvis- Minimal nonspecific small bowel dilatation consistent with the clinical history of diarrhea. 4. UTI- f/u ur cx- renal dose abx 5. leukopenia worsening- ANC 1.03 -per medicine 6. thrombocytopenia- plts 82- consider heme eval. Q COVID-19 related -hgb okay for ESRD 7. dm care - good hgb a1c of 5.8 8.monitor phos w/ HD, binders as needed 9. replace magnesium 10. h/o CAD and trop 133, elevated bnp -per emdicine 11. tsh = 0.11= decrease levothyroxine meds reviewed seen and examined w/ rN- telehealth visit Attestations Medical Necessity Statement*: covid-19 pna, esrd, uti, htn, sob Time Spent in Patient Care: 16 - 35 minutes (>than 50% of time spent in counselling and/or direct pt care on unit) . 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
[2020-12-08] MEDS: albuterol 8 gm MDI 2 PUFF INHALATION ×2 (08:55→20:50)
[2020-12-08 09:36] LABS: Hepatitis B Surface AB 7.6 (11.5-1000); Hepatitis B Surface Antigen Non-Reactive (Nonreactive); Hepatitis C Virus Antibody Non-Reactive (Nonreactive)
[2020-12-08 11:37] LABS: Glucose Point of Care 120 mg/dL (70-110)
--- NOTE | 2020-12-08 12:41 | P.PN_ITS ---
Subjective Subjective: Interval history: Patient tells me that she is feeling better this morning, afebrile overnight, on 1 to 2 L nasal cannula, still having fatigue, malaise, no chest pain, no palpitations, no nausea, no vomiting, no diarrhea Vitals/I&O/Wt Last Vital Signs Temp 98 F 12/08/20 08:00 Pulse 64 12/08/20 09:05 Resp 17 12/08/20 08:56 BP 167/79 12/08/20 08:00 Pulse Ox 97 12/08/20 08:56 12/07/20 12/08/20 12/08/20 22:59 06:59 14:59 Intake Total 750 / 752.1 2044.75 / 2796.85 291.25 / 291.25 Output Total 100 / 100 Balance 750 / 752.1 1944.75 / 2696.85 291.25 / 291.25 Weight last 48 hrs Weight 87.09 kg Physical Exam Const: COMMON NORMALS: no acute distress and patient oriented x3 Resp: COMMON NORMALS: normal respiratory effort, No retractions, No use of accessory muscles and clear to auscultation bilaterally AUSCULTATION: clear to auscultation bilaterally Cardio: COMMON NORMALS: regular rate, regular rhythm, S1 normal heart sound present and S2 normal heart sound present RATE: regular rate RHYTHM: regular rhythm HEART SOUNDS: S1 normal heart sound present and S2 normal heart sound present GI: COMMON NORMALS: Normal to inspection, nondistended, normoactive bowel sounds present, Soft to palpation and non-tender PALPATION: Yes Soft to palpation Extremity: COMMON NORMALS: no pedal edema Neuro: COMMON NORMALS: patient oriented x3 Psych: COMMON NORMALS: mental status grossly normal Data : 12/08/20 01:26 12/08/20 01:26 Micro: Microbiology 12/07/20 19:00 Stool Lactoferrin - Final Stool Enteric Pathogens (PCR) - Final Occult Blood (FIT) - Final 12/07/20 10:34 Blood Culture - Preliminary Blood NEGATIVE TO DATE 12/07/20 10:05 Urine Culture - Preliminary Urine,Clean Catch Gram Negative Rods 12/07/20 19:00 C.difficile Toxin B Gene (PCR) - Final Stool - Stool Aspirate 12/07/20 18:42 Blood Culture - Preliminary Blood SPECIMEN COLLECTED A&P Assessment and plan (1) Acute respiratory failure with hypoxia: Acute hypoxic respiratory failure secondary to COVID-19 -Currently on 2 L, no complaints of shortness of breath, -Leukopenia, white blood cell count 1.3 -Thrombocytopenia 82,000 -Rapid Covid positive -CT angiogram of the chest shows bilateral partial lower lobe consolidation, patchy right upper lung groundglass opacities, consistent with bilateral pulmonary pneumonia or edema -Pro-Cortez 0.23, 40.3 Plan: -Admit to cardiac stepdown unit -PICC line placed -COVID-19 isolation -Obtain a confirmatory Covid PCR -Advair, albuterol, vitamin C, zinc vitamin D -Rocephin, azithromycin - blood cultures, sputum cultures, urine cultures -Decadron 6 mg IV push daily -Oxygen therapy, monitor respiratory status closely -Given patient is dialysis dependent, creatinine, remdesivir has not been studied in dialysis patients, there is a theoretical risk of accumulation of gs [id number], currently is on 2 L, if her respiratory status worsens or oxygen requirements increased will discuss with patient about pursuing treatment of remdesivir after discussion of the risk and benefits -For now stop IV hydration, transition to renal diet -Full code -Heparin for DVT prophylaxis Dehydration, secondary diarrhea, resolved, stop IV hydration Diarrhea, likely secondary to Covid, but did use antibiotics roughly 3 weeks days ago, IV hydration as above, C. difficile, stool studies, CT abdomen shows nonspecific small bowel dilatation consistent with clinical history of diarrhea Urinary tract infection, continue Rocephin follow urine cultures, blood cultures, CT abdomen and pelvis shows no obstructive uropathy or evidence radiographic of pyelonephritis Leukopenia, secondary COVID-19 Thrombocytopenia, lightheadedness COVID-19 Dizziness, secondary dehydration, secondary to BPpv NSTEMI, troponin 133, 6-hour 106, delta negative to -23.[address]-T wave changes, no chest pain complaints, creatinine 6.3, but does have shortness of breath, history of CAD status post stenting x2 -Likely secondary to respiratory failure, end-stage renal disease, possible COVID-19 myocarditis, however cannot rule out underlying cardiac etiology Plan -Monitor for chest pain -Telemetry monitoring -Continue aspirin, Plavix, statin -Obtain a cardiac echocardiogram End-stage renal disease, on hemodialysis, consult nephrology, plan for dialysis today Type 2 diabetes mellitus, continue insulin sliding scale, A1c 5.8 Status: Acute (2) Pneumonia due to COVID-19 virus: Status: Acute (3) Diarrhea: Status: Acute (4) UTI (urinary tract infection): Status: Acute Qualifiers: Hematuria presence: with hematuria Urinary tract infection type: site unspecified Qualified Code(s): N39.0 - Urinary tract infection, site not specified; R31.9 - Hematuria, unspecified (5) Leukopenia: Status: Acute Qualifiers: Leukopenia type: other Qualified Code(s): D72.818 - Other decreased white blood cell count (6) Carotid stenosis: Status: Acute Qualifiers: Laterality: bilateral Qualified Code(s): I65.23 - Occlusion and stenosis of bilateral carotid arteries (7) Dizziness: Status: Acute (8) DOROTEO on CPAP: Status: Chronic (9) Hyperlipidemia: Status: Chronic Qualifiers: Hyperlipidemia type: unspecified Qualified Code(s): E78.5 - Hyperlipidemia, unspecified (10) CAD (coronary artery disease): Status: Acute Qualifiers: Coronary Disease-Associated Artery/Lesion type: [place] artery [place] vs. transplanted heart: [place] heart Associated angina: without angina Qualified Code(s): I25.10 - Atherosclerotic heart disease of [place] coronary artery without angina pectoris (11) Chronic diastolic CHF (congestive heart failure): Status: Acute (12) Diabetes mellitus: Status: Acute Qualifiers: Diabetes mellitus type: type 2 Diabetes mellitus halfway insulin use: with halfway use Diabetes mellitus complication status: with neurologic complications Diabetes mellitus complication detail: with polyneuropathy Qualified Code(s): E11.42 - Type 2 diabetes mellitus with diabetic polyneuropathy; Z79.4 - longterm (current) use of insulin (13) HTN (hypertension): Status: Acute Qualifiers: Hypertension type: essential hypertension Qualified Code(s): I10 - Essential (primary) hypertension (14) Hypothyroidism: Status: Acute Qualifiers: Hypothyroidism type: acquired Qualified Code(s): E03.9 - Hypothyroidism, unspecified (15) End-stage renal disease on hemodialysis: Status: Acute (16) NSTEMI (non-ST elevated myocardial infarction): Status: Acute Attestations Medical Necessity Statement*: Patient requires hospitalization for acute respiratory failure with proximal second to COVID-19 Coding Level of Care Code Acute Pediatric Occupational Therapist for [facility] Diagnoses Acute respiratory failure with hypoxia J96.01 Pneumonia due to COVID-19 virus U07.1; J12.82 Diarrhea R19.7 UTI (urinary tract infection) N39.0; R31.9 Hematuria presence: with hematuria Urinary tract infection type: site unspecified Leukopenia D72.818 Leukopenia type: other Carotid stenosis I65.23 Laterality: bilateral Dizziness R42 DOROTEO on CPAP G47.33; Z99.89 Hyperlipidemia E78.5 Hyperlipidemia type: unspecified CAD (coronary artery disease) I25.10 Coronary Disease-Associated Artery/Lesion type: [place] artery [place] vs. 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
[2020-12-08] MEDS: paricalcitol 2 mcg/mL SDV 1 mL 5 MCG IV (13:45)
[2020-12-08] MEDS: cefTRIAXone 1,000 MG in sodium chloride 0.9% (plus) 50 ML 100 MG IV (13:45)
--- NOTE | 2020-12-08 13:59 | USCV_ITS ---
Mino Rizwana Age: 55 Gender: F : 1965 Exam Date: 12/08/2020 07:00 Ordering Phys: Maikol Lemos MD Technologist: Bee Mccallum Exam Location: [facility] Indication: Shortness of breath BP: 175 / 70 HR: 58 Rhythm: Sinus Technical Quality: Fair MEASUREMENTS (Male / Female) Normal Values 2D ECHO LV Diastolic Diameter PLAX 4.8 cm 4.2 - 5.9 / 3.9 - 5.3 cm LV Systolic Diameter PLAX 3.0 cm LV Chamber Size 4.0 cm IVS Diastolic Thickness 1.4 cm 0.6 - 1.0 / 0.6 - 0.9 cm IVS Systolic Thickness 1.8 cm LVPW Diastolic Thickness 0.9 cm 0.6 - 1.0 / 0.6 - 0.9 cm LVPW Systolic Thickness 1.8 cm RV Chamber Size 3.8 cm LVOT Diameter 2.2 cm LA Diameter 4.0 cm LA Width 3.1 cm LA Height 6.2 cm RA Width 3.0 cm RA Height 4.5 cm Aorta at Sinotubular Diameter 2.5 cm M-MODE LV Diastolic Diameter MM 5.8 cm 4.2 - 5.9 / 3.9 - 5.3 cm LV Systolic Diameter MM 3.6 cm LV Ejection Fraction MM Teich 66.6 % IVS Diastolic Thickness MM 2.2 cm 0.6 - 1.0 / 0.6 - 0.9 cm IVS Systolic Thickness MM 1.8 cm LVPW Diastolic Thickness MM 1.2 cm 0.6 - 1.0 / 0.6 - 0.9 cm LVPW Systolic Thickness MM 2.0 cm Aortic Annulus Diameter 3.2 cm LA Ao Ratio MM 1.4 MV E Point Septal Separation 0.8 cm DOPPLER AV Peak Velocity 168.0 cm/s LVOT Peak Velocity 106.0 cm/s AV Area Cont Eq vti 2.5 cm squared AV Area Cont Eq pk 2.4 cm squared MV Area PHT 4.8 cm squared Mitral E to A Ratio 1.3 MV E' Velocity 54.5 cm/s Mitral E to MV E' Ratio 14.5 Mitral E to LV E' Lateral Ratio 11.4 Mitral E to LV E' Septal Ratio 20.4 TR Peak Velocity 212.0 cm/s TR Peak Gradient 18.0 mmHg TV Peak E Velocity 67.0 cm/s Right Atrial Pressure 3.0 mmHg Pulmonary Artery Systolic Pressu 21.0 mmHg PV Peak Velocity 95.0 cm/s RV Acceleration Time 0.1 s RV Ejection Time 0.3 s RV AcT/ET 0.3 FINDINGS Left Ventricle Normal left ventricular cavity size. Normal left ventricular systolic function. No regional wall motion abnormalities. Left ventricular ejection fraction is estimated at 55 %. Grade II/IV diastolic dysfunction, moderately elevated filling pressures. Right Ventricle The right ventricle is normal in size and function. Right Atrium The right atrium is normal in size. Left Atrium The left atrium is normal in size. Mitral Valve Structurally normal mitral valve without significant stenosis or prolapse. There is no mitral regurgitation. Aortic Valve Moderate aortic valve calcification. No aortic valve stenosis. Trace aortic valve regurgitation. Tricuspid Valve Structurally normal tricuspid valve without significant stenosis or regurgitation. Pulmonary artery systolic pressure is normal. Pulmonic Valve Structurally normal pulmonic valve without significant stenosis. There is no pulmonic regurgitation. Pericardium Normal pericardium without effusion. Aorta Normal ascending aorta dimension. CONCLUSIONS 1-Normal left ventricular cavity size. Normal left ventricular systolic function. No regional wall motion abnormalities. Left ventricular ejection fraction is estimated at 55 %. Grade II/IV diastolic dysfunction, moderately elevated filling pressures. 2-Moderate aortic valve calcification. No aortic valve stenosis. Trace aortic valve regurgitation. 3-There is no pericardial effusion. 4-Pulmonary artery systolic pressure is within normal limits. 5-Right atrial pressure is around 5 mm of mercury. 6-Due to poor quality study in the past we cannot compare this exam Daksha Delcid MD (Electronically Signed) Final Date: 08 December 2020 16:42 S
[2020-12-08] MEDS: dexamethasone 4 mg/mL INJ 6 MG IVP (14:31)
[2020-12-08] MEDS: amlodipine 10 mg Tablet PO (14:32)
[2020-12-08] MEDS: azithromycin 500 MG in sodium chloride 0.9% 250 ML 250 MG IV (15:00)
[2020-12-08 16:57] LABS: Glucose Point of Care 143 mg/dL (70-110)
[2020-12-08] MEDS: cloNIDine 0.1 mg Tablet PO (17:37)
[2020-12-08 19:47] LABS: Glucose Point of Care 245 mg/dL (70-110)
--- NOTE | 2020-12-08 19:48 | PC.NURSE ---
Addendum entered by Kaela Oshea RN 12/08/20 19:52: Low dose regimen ordered at bedtime per telephone order. Original Note: Dr. Burdick notified of blood sugar of 245 and patient has no sliding scale ordered for bedtime. Ordered to add bedtime sliding scale with same dose as ordered TID sliding scale.
[2020-12-08] MEDS: atorvastatin 40 mg Tablet PO (19:59)
[2020-12-09] VITALS (18 sets, daily range): BP systolic 116–156; BP diastolic 53–76; PULSE 54–71; RESP 12–24; TEMP 37.2–37.8; O2SAT 91–99
[2020-12-09] MEDS: heparin 5,000 unit/mL INJ 1 mL 5000 UNIT SUBCUT ×2 (01:56→13:46)
[2020-12-09] MEDS: acetaminophen 325 mg Tablet 650 MG PO ×2 (01:56→16:27)
[2020-12-09] MEDS: pantoprazole 40 mg SDV IVP ×2 (01:56→13:50)
[2020-12-09] MEDS: morphine 4 mg/mL SDV 1 mL 1 MG IVP ×3 (02:35→16:25)
[2020-12-09 04:14] LABS: Hemoglobin 11.4 g/dL (11.5-15.3); Lymphocytes # 0.2 10^3/uL (0.8-4.8); Lymphocytes % 7.5 %; Mean Corpuscular HGB Conc 31.7 g/dL (30.0-36.0); Mean Corpuscular Hemoglobin 31.1 pg (28.0-34.0); Mean Corpuscular Volume 98.1 fL (81-99); Mean Platelet Volume 12.4 fL (7.4-10.4); Monocytes # 0.1 10^3/uL (0.2-0.9); Monocytes % 4.6 %; Neutrophils # 2.09 10^3/uL (1.8-7.7); Neutrophils % 87.5 %; Nucleated Red Blood Cells % 0 %; Platelet Count 109 10^3/cmm (130-400); Red Blood Count 3.67 10^6/uL (4.1-5.3); Red Cell Distribution Width 14.2 % (12.1-15.1); White Blood Count 2.4 10^3/uL (4.0-10.0)
[2020-12-09 04:52] LABS: NT Pro B Type Natriuretic Pept 8525 pg/mL (0-125); Procalcitonin 0.41 ng/mL (0-0.5)
[2020-12-09 05:03] LABS: Alanine Aminotransferase 18 U/L (0-33); Albumin Level 3.2 g/dL (3.5-5.2); Alkaline Phosphatase 101 IU/L (35-105); Blood Urea Nitrogen 25 mg/dL (6-20); C Reactive Protein 49.2 mg/L (0.0-4.9); Calcium 8.8 mg/dL (8.5-10.5); Carbon Dioxide 26 mmol/L (22-29); Chloride 99 mmol/L (98-107); Globulin 2.8 g/dL (1.3-4.6); Glomerular Filtration Rate 9.9 mL/min (90-130); Glucose 197 mg/dL (65-115); Magnesium 1.6 mg/dL (1.7-2.3); Osmolality Calculated 294 mOsm/kg (285-295); Phosphorus 3.8 mg/dL (2.5-4.5); Sodium 137 mmol/L (136-145); Total Bilirubin 0.4 mg/dL (0.15-1.2)
[2020-12-09 05:05] LABS: Potassium 4.3 mmol/L (3.5-5.1)
[2020-12-09 05:06] LABS: Anion Gap 16.3 (5-19); Aspartate Amino Transferase 25 U/L (0-32)
--- NOTE | 2020-12-09 06:39 | PC.NURSE ---
Dialysis nurse states that 3 liters were removed during dialysis yesterday, but that she was having trouble getting it to show up properly on I and O flowsheet. Patient c/o back pain on and off throughout night. Patient states, my back has hurt me since I fell out of my wheelchair at home.
[2020-12-09 06:41] LABS: Glucose Point of Care 180 mg/dL (70-110)
--- NOTE | 2020-12-09 07:00 | XRR_ITS ---
PROCEDURE INFORMATION: Exam: XR Chest Exam date and time: 12/09/2020 7:00 AM Age: 55 years old Clinical indication: Condition or disease; Other: Follow up covid; Additional info: SOB TECHNIQUE: Imaging protocol: XR of the chest. Views: 1 view. COMPARISON: CR XR chest 1V portable [id number] 12/07/2020 1:38 PM FINDINGS: Tubes, catheters and devices: Stable right central line. Lungs: Significantly decreased bilateral pulmonary opacities with mild residual left medial lung base and right lateral lung base. Pleural spaces: Unremarkable. No pleural effusion. No pneumothorax. Heart/Mediastinum: Unremarkable. No cardiomegaly. Bones/joints: Unremarkable. XR/XR chest 1V portable [id number] IMPRESSION: 1. Stable right central line. 2. Significantly decreased bilateral pulmonary opacities with mild residual left medial lung base and right lateral lung base.
--- NOTE | 2020-12-09 07:17 | PM.PN ---
Subjective Subjective: Interval history: back pain, pleuritic CP. d/p HD yesterday w/ 3 l removed. used bipap overnight. no [place]. porr appetite. still sob Medications: Reviewed: Yes Medication Review Details: Current Medications Acetaminophen (Acetaminophen 325 Mg Tablet) 650 mg PO Q6H PRN PRN Reason: Mild/Mod Pain Or Temp >/= 101 Last Admin: 12/09/20 01:56 Dose: 650 mg Documented by: Albuterol Sulfate (Albuterol 8 Gm Mdi) 2 puff INHALATION Q4H.RESPIRATORY PRN PRN Reason: SHORTNESS OF BREATH Last Admin: 12/08/20 20:50 Dose: 2 puff Documented by: Amlodipine Besylate (Amlodipine 10 Mg Tablet) 10 mg PO DAILY [facility] Last Admin: 12/08/20 14:32 Dose: 10 mg Documented by: Ascorbic Acid (Ascorbic Acid 500 Mg Tablet) 500 mg PO BID [facility] Last Admin: 12/08/20 17:38 Dose: 500 mg Documented by: Aspirin (Aspirin 81 Mg Chew Tablet) 81 mg PO DAILY@08 [facility] Last Admin: 12/08/20 07:29 Dose: 81 mg Documented by: Atorvastatin Calcium (Atorvastatin 40 Mg Tablet) 40 mg PO DAILY@20 [facility] Last Admin: 12/08/20 19:59 Dose: 40 mg Documented by: Brimonidine Tartrate (Brimonidine 0.2% Op Soln 5 Ml Btl) 1 drop EYE-BOTH BID@08,20 [facility] Last Admin: 12/08/20 19:58 Dose: 1 drop Documented by: Clonidine HCl (Clonidine 0.1 Mg Tablet) 0.1 mg PO BID [facility] Last Admin: 12/08/20 17:37 Dose: 0.1 mg Documented by: Clopidogrel Bisulfate (Clopidogrel 75 Mg Tablet) 75 mg PO DAILY@08 [facility] Last Admin: 12/08/20 07:30 Dose: 75 mg Documented by: Dexamethasone (Dexamethasone 4 Mg/Ml Inj) 6 mg IVP Q24H [facility] Last Admin: 12/08/20 14:31 Dose: 6 mg Documented by: Dextrose (Dextrose 50% Syringe 50 Ml) 25 ml IVP ONCE PRN; Protocol PRN Reason: hypoglycemia protocol Dextrose (Dextrose 50% Syringe 50 Ml) 50 ml IVP PRN PRN; Protocol PRN Reason: hypoglycemia protocol Dorzolamide/Timolol (Dorzolamide/Timolol Op Soln 10 Ml Btl) 1 drop EYE-BOTH BID@08,20 [facility] Last Admin: 12/08/20 19:58 Dose: 1 drop Documented by: Escitalopram Oxalate (Escitalopram 10 Mg Tablet) 10 mg PO DAILY@08 [facility] Last Admin: 12/08/20 07:29 Dose: 10 mg Documented by: Glucagon (Glucagon 1 Mg/Ml Inj 1 Ml) 1 mg IM ONCE PRN; Protocol PRN Reason: Adult Acute Hypoglycemia Prot. Heparin Sodium (Beef Lung) (Heparin 5,000 Unit/Ml Inj 1 Ml) 5,000 unit SUBCUT Q12H [facility] Last Admin: 12/09/20 01:56 Dose: 5,000 unit Documented by: Ceftriaxone Sodium 1,000 mg/ (Sodium Chloride) 50 mls @ 100 mls/hr IV Q24H [facility]; Protocol Last Infusion: 12/08/20 14:52 Dose: Infused Documented by: Azithromycin 500 mg/ Sodium (Chloride) 250 mls @ 250 mls/hr IV Q24H [facility]; Protocol Last Infusion: 12/08/20 16:00 Dose: Infused Documented by: Insulin Aspart (Insulin Aspart 100 Unit/1 Ml) 0 unit SUBCUT TIDWM [facility]; Protocol Last Admin: 12/08/20 17:38 Dose: 2 unit Documented by: Insulin Aspart (Insulin Aspart 100 Unit/1 Ml) 0 unit SUBCUT BEDTIME [facility]; Protocol Last Admin: 12/08/20 19:59 Dose: 3 unit Documented by: Labetalol HCl (Labetalol 5 Mg/Ml Sdv 20ml) 10 mg IVP Q4H PRN PRN Reason: FOR SBP>180, or DBP>100, HOLD IF HR<60 Last Admin: 12/08/20 04:09 Dose: 10 mg Documented by: Levothyroxine Sodium (Levothyroxine 150 Mcg Tablet) 150 mcg PO DAILY@0800 [facility] Morphine Sulfate (Morphine 4 Mg/Ml Sdv 1 Ml) 1 mg IVP Q4H PRN PRN Reason: SEVERE PAIN Last Admin: 12/09/20 02:35 Dose: 1 mg Documented by: Naloxone HCl (Naloxone 0.4 Mg/Ml Sdv) 0.1 mg IVP Q2M PRN PRN Reason: OPIATERV Nitroglycerin (Nitroglycerin 0.4 Mg Sublingual Tablet) 0.4 mg SUBLINGUAL Q5M PRN PRN Reason: Chest Pain Non-Formulary Medication (Netarsudil-Latanoprost [Rocklatan]) 1 drop EYEAFF DAILY@20 [facility] Last Admin: 12/08/20 19:56 Dose: Not Given Documented by: Non-Formulary Medication ([place] 2-Ami-Liu-Fish Oil [Fish Oil]) 1 cap PO BID@08,20 [facility] Last Admin: 12/08/20 19:56 Dose: Not Given Documented by: Ondansetron HCl (Ondansetron 2 Mg/Ml Sdv 2 Ml) 4 mg IVP Q8H PRN PRN Reason: vomiting, or N/V if npo Pantoprazole Sodium (Pantoprazole 40 Mg Sdv) 40 mg IVP Q12H [facility] Last Admin: 12/09/20 01:56 Dose: 40 mg Documented by: Fluticasone/Salmeterol (Fluticasone-Salmeterol 250-50 Diskus) 1 puff INHALATION BID.RESPIRATORY [facility] Last Admin: 12/08/20 20:51 Dose: 1 puff Documented by: Senna/Docusate Sodium (Sennosides-Docusate Tablet) 2 tab PO BID PRN PRN Reason: Constipation Zinc Gluconate (Zinc Gluconate 50 Mg Tablet) 50 mg PO DAILY [facility] Last Admin: 12/08/20 07:30 Dose: 50 mg Documented by: Vitals/I&O/Wt Last Vital Signs Temp 99.4 F 12/09/20 03:11 Pulse 59 L 12/09/20 03:47 Resp 12 12/09/20 02:42 BP 156/72 12/09/20 02:42 Pulse Ox 99 12/09/20 02:42 12/08/20 12/09/20 12/09/20 22:59 06:59 14:59 Intake Total 522 / 863.25 50 / 913.25 Output Total 50 / 50 Balance 522 / 863.25 0 / 863.25 Weight last 48 hrs Weight 89.8 kg Weight 87.09 kg Physical Exam Narrative: EXAM NARRATIVE: obese, more comfortable using nc 02 heent- nc/at, eomi, anicteric neck supple lung - crackles and ronchi improving b/l heart reg +s1 s2, no rub abd soft, nt, nd ext Rt BKA, no edema neuro- a,a, o x 3 Data : 12/09/20 03:32 12/09/20 03:32 Micro: Microbiology 12/07/20 18:42 Blood Culture - Preliminary Blood NEGATIVE TO DATE 12/07/20 19:00 Stool Lactoferrin - Final Stool Enteric Pathogens (PCR) - Final Parasite Antigen Panel - Final Occult Blood (FIT) - Final 12/07/20 10:34 Blood Culture - Preliminary Blood NEGATIVE TO DATE 12/07/20 10:05 Urine Culture - Preliminary Urine,Clean Catch Gram Negative Rods 12/07/20 19:00 C.difficile Toxin B Gene (PCR) - Final Stool - Stool Aspirate A&P Additional A&P Information 55 yr old female 1. ESRD - HD MWF schedule- had HD yesterday- plan for AM -prelim HD orders for 12/10/20 3.5 hrs, 3k, remove 2.5l as tolerated -pth 706- zemplar/ calcitriol 2. COVID-19 pna- per medicine -if need remdesivir- renal dose QOD -appears clinically improving. still w/ pleuritic cp -cxr appears improved after HD 3. diarrhea- CT abd/ pelvis- Minimal nonspecific small bowel dilatation consistent with the clinical history of diarrhea. 4. UTI- f/u ur cx- gram neg rods-- renal dose abx 5. leukopenia and thrombocytopenia are improving 6.anemia -hgb okay for ESRD 7. dm care - good hgb a1c of 5.8 8.monitor phos w/ HD, binders as needed 9. h/o CAD and trop 133, elevated bnp -per emdicine 10. 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
[2020-12-09] MEDS: cloNIDine 0.1 mg Tablet PO ×2 (07:58→18:34)
[2020-12-09] MEDS: clopidogrel 75 mg Tablet PO (07:58)
[2020-12-09] MEDS: escitalopram 10 mg Tablet PO (07:58)
[2020-12-09] MEDS: ascorbic acid 500 mg Tablet PO ×2 (07:59→18:35)
[2020-12-09] MEDS: amlodipine 10 mg Tablet PO (07:59)
[2020-12-09] MEDS: zinc gluconate 50 mg Tablet PO (07:59)
[2020-12-09] MEDS: aspirin 81 mg Chew Tablet PO (07:59)
[2020-12-09] MEDS: levothyroxine 150 mcg Tablet PO (07:59)
[2020-12-09] MEDS: dorzolamide/timolol Op Soln 10 mL Btl 1 DROP EYE-BOTH ×2 (08:05→20:01)
[2020-12-09] MEDS: brimonidine 0.2% Op Soln 5 mL Btl 1 DROP EYE-BOTH ×2 (08:05→20:01)
[2020-12-09] MEDS: albuterol 8 gm MDI 2 PUFF INHALATION ×2 (08:29→20:48)
[2020-12-09 11:13] LABS: Glucose Point of Care 238 mg/dL (70-110)
[2020-12-09] MEDS: cefTRIAXone 1,000 MG in sodium chloride 0.9% (plus) 50 ML 100 MG IV (11:40)
--- NOTE | 2020-12-09 13:09 | PM.PN ---
Subjective Subjective: Interval history: Patient was examined this morning, her appetite is improving, she is on 2 L, she does complains of a cough, no significant shortness of breath, no chest pain, no palpitations, no lightheadedness, dizziness, she continues to have complaints of fatigue and malaise Vitals/I&O/Wt Last Vital Signs Temp 99 F 12/09/20 08:00 Pulse 62 12/09/20 12:08 Resp 22 H 12/09/20 12:08 BP 151/76 12/09/20 12:08 Pulse Ox 93 12/09/20 12:08 12/08/20 12/09/20 12/09/20 22:59 06:59 14:59 Intake Total 522 / 863.25 50 / 913.25 462 / 462 Output Total 50 / 50 Balance 522 / 863.25 0 / 863.25 462 / 462 Weight last 48 hrs Weight 89.8 kg Physical Exam Const: COMMON NORMALS: no acute distress and patient oriented x3 Resp: COMMON NORMALS: normal respiratory effort, No retractions, No use of accessory muscles and clear to auscultation bilaterally AUSCULTATION: clear to auscultation bilaterally Cardio: COMMON NORMALS: regular rate, regular rhythm, S1 normal heart sound present and S2 normal heart sound present RATE: regular rate RHYTHM: regular rhythm HEART SOUNDS: S1 normal heart sound present and S2 normal heart sound present GI: COMMON NORMALS: Normal to inspection, nondistended, normoactive bowel sounds present, Soft to palpation and non-tender PALPATION: Yes Soft to palpation Extremity: COMMON NORMALS: no pedal edema Neuro: COMMON NORMALS: patient oriented x3 Psych: COMMON NORMALS: mental status grossly normal Data : 12/09/20 03:32 12/09/20 03:32 Micro: Microbiology 12/07/20 10:05 Urine Culture - Final Urine,Clean Catch Escherichia coli 12/07/20 18:42 Blood Culture - Preliminary Blood NEGATIVE TO DATE 12/07/20 19:00 Stool Lactoferrin - Final Stool Enteric Pathogens (PCR) - Final Parasite Antigen Panel - Final Occult Blood (FIT) - Final 12/07/20 10:34 Blood Culture - Preliminary Blood NEGATIVE TO DATE A&P Assessment and plan (1) Acute respiratory failure with hypoxia: Acute hypoxic respiratory failure secondary to COVID-19 -Currently on 2 L, no complaints of shortness of breath, -Leukopenia, white blood cell count 2.3 -Thrombocytopenia 109K -Rapid Covid positive -CT angiogram of the chest shows bilateral partial lower lobe consolidation, patchy right upper lung groundglass opacities, consistent with bilateral pulmonary pneumonia or edema -Pro-[place] 0.41 Plan: -Admit to cardiac stepdown unit -PICC line placed -COVID-19 isolation -Obtain a confirmatory Covid PCR -Advair, albuterol, vitamin C, zinc vitamin D -Rocephin, azithromycin - blood cultures, sputum cultures, urine cultures -Decadron 6 mg IV push daily -Oxygen therapy, monitor respiratory status closely -Given patient is dialysis dependent, creatinine, remdesivir has not been studied in dialysis patients, there is a theoretical risk of accumulation of [id number], currently is on 2 L, if her respiratory status worsens or oxygen requirements increased will discuss with patient about pursuing treatment of remdesivir after discussion of the risk and benefits -Currently on renal diet -Full code -Heparin for DVT prophylaxis Dehydration, secondary diarrhea, resolved, off IV hydration Diarrhea, likely secondary to Covid, but did use antibiotics roughly 3 weeks days ago, IV hydration as above, C. difficile, stool studies, CT abdomen shows nonspecific small bowel dilatation consistent with clinical history of diarrhea Urinary tract infection, continue Rocephin follow urine cultures, blood cultures, CT abdomen and pelvis shows no obstructive uropathy or evidence radiographic of pyelonephritis Leukopenia, secondary COVID-19 Thrombocytopenia, lightheadedness COVID-19 Dizziness, secondary dehydration, secondary to BPpv NSTEMI, troponin 133, 6-hour 106, delta negative to -23.[address]-T wave changes, no chest pain complaints, creatinine 6.3, but does have shortness of breath, history of CAD status post stenting x2 -Likely secondary to respiratory failure, end-stage renal disease, possible COVID-19 myocarditis, however cannot rule out underlying cardiac etiology Plan -Monitor for chest pain -Telemetry monitoring -Continue aspirin, Plavix, statin -Obtain a cardiac echocardiogram End-stage renal disease, on hemodialysis, consult nephrology, plan for dialysis today Type 2 diabetes mellitus, continue insulin sliding scale, A1c 5.8 Plan for today continue PT OT, continue oxygen therapy, continue antibiotics, continue steroids, monitor clinically Status: Acute (2) Pneumonia due to COVID-19 virus: Status: Acute (3) Diarrhea: Status: Acute (4) UTI (urinary tract infection): Status: Acute Qualifiers: Hematuria presence: with hematuria Urinary tract infection type: site unspecified Qualified Code(s): N39.0 - Urinary tract infection, site not specified; R31.9 - Hematuria, unspecified (5) Leukopenia: Status: Acute Qualifiers: Leukopenia type: other Qualified Code(s): D72.818 - Other decreased white blood cell count (6) Carotid stenosis: Status: Acute Qualifiers: Laterality: bilateral Qualified Code(s): I65.23 - Occlusion and stenosis of bilateral carotid arteries (7) Dizziness: Status: Acute (8) DOROTEO on CPAP: Status: Chronic (9) Hyperlipidemia: Status: Chronic Qualifiers: Hyperlipidemia type: unspecified Qualified Code(s): E78.5 - Hyperlipidemia, unspecified (10) CAD (coronary artery disease): Status: Acute Qualifiers: Coronary Disease-Associated Artery/Lesion type: [place] artery [place] vs. 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 consultant residential manager insulin use: with snf use Diabetes mellitus complication status: with neurologic complications Diabetes mellitus complication detail: with polyneuropathy Qualified Code(s): E11.42 - Type 2 diabetes mellitus with diabetic polyneuropathy; 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.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 (13) HTN (hypertension): Status: Acute Qualifiers: Hypertension type: essential hypertension Qualified Code(s): I10 - Essential (primary) hypertension (14) Hypothyroidism: Status: Acute Qualifiers: Hypothyroidism type: acquired Qualified Code(s): E03.9 - Hypothyroidism, unspecified (15) End-stage renal disease on hemodialysis: Status: Acute (16) NSTEMI (non-ST elevated myocardial infarction): Status: Acute Attestations Medical Necessity Statement*: Patient course hospitalization for acute respiratory failure with hypoxia secondary to COVID-19 Coding Level of Care Code 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 transplanted heart: [place] heart Associated angina: without angina Chronic diastolic CHF (congestive heart failure) I50.32 Diabetes mellitus E11.42; Z79.4 Diabetes mellitus type: type 2 Diabetes mellitus sales consultant residential manager insulin use: with sales consultant residential manager use Diabetes mellitus complication status: with neurologic complications Diabetes mellitus complication detail: with polyneuropathy HTN (hypertension) I10 Hypertension type: essential hypertension Hypothyroidism E03.9 Hypothyroidism type: acquired End-stage renal disease on hemodialysis N18.6; Z99.2 NSTEMI (non-ST elevated myocardial infarction) I21.4
[2020-12-09] MEDS: dexamethasone 4 mg/mL INJ 6 MG IVP (13:50)
[2020-12-09] MEDS: azithromycin 500 MG in sodium chloride 0.9% 250 ML 250 MG IV (14:37)
[2020-12-09 16:23] LABS: Glucose Point of Care 152 mg/dL (70-110)
[2020-12-09] MEDS: ondansetron 2 mg/ML SDV 2 mL 4 MG IVP (16:27)
[2020-12-09] MEDS: atorvastatin 40 mg Tablet PO (20:00)
[2020-12-09 20:16] LABS: Glucose Point of Care 277 mg/dL (70-110)
[2020-12-10] VITALS (18 sets, daily range): BP systolic 124–163; BP diastolic 59–80; PULSE 56–68; RESP 15–21; TEMP 36.9–37.3; O2SAT 92–98
[2020-12-10] MEDS: pantoprazole 40 mg SDV IVP ×2 (01:35→13:42)
[2020-12-10] MEDS: heparin 5,000 unit/mL INJ 1 mL 5000 UNIT SUBCUT ×2 (01:36→13:43)
[2020-12-10 03:53] LABS: Hemoglobin 10.8 g/dL (11.5-15.3); Lymphocytes # 0.2 10^3/uL (0.8-4.8); Lymphocytes % 7.1 %; Mean Corpuscular HGB Conc 30.9 g/dL (30.0-36.0); Mean Corpuscular Hemoglobin 30.8 pg (28.0-34.0); Mean Corpuscular Volume 99.7 fL (81-99); Mean Platelet Volume 12.5 fL (7.4-10.4); Monocytes # 0.1 10^3/uL (0.2-0.9); Monocytes % 5.2 %; Neutrophils # 1.84 10^3/uL (1.8-7.7); Neutrophils % 86.8 %; Nucleated Red Blood Cells % 0 %; Platelet Count 129 10^3/cmm (130-400); Red Blood Count 3.51 10^6/uL (4.1-5.3); Red Cell Distribution Width 14.3 % (12.1-15.1); White Blood Count 2.1 10^3/uL (4.0-10.0)
[2020-12-10 04:18] LABS: C Reactive Protein 60.2 mg/L (0.0-4.9)
[2020-12-10 04:28] LABS: NT Pro B Type Natriuretic Pept 7397 pg/mL (0-125); Procalcitonin 0.51 ng/mL (0-0.5)
[2020-12-10 04:39] LABS: Alanine Aminotransferase 19 U/L (0-33); Albumin Level 3.1 g/dL (3.5-5.2); Alkaline Phosphatase 98 IU/L (35-105); Blood Urea Nitrogen 39 mg/dL (6-20); Carbon Dioxide 25 mmol/L (22-29); Chloride 96 mmol/L (98-107); Glomerular Filtration Rate 6.1 mL/min (90-130); Glucose 254 mg/dL (65-115); Magnesium 2.2 mg/dL (1.7-2.3); Osmolality Calculated 300 mOsm/kg (285-295); Phosphorus 5.3 mg/dL (2.5-4.5); Sodium 136 mmol/L (136-145); Total Bilirubin 0.3 mg/dL (0.15-1.2); Total Protein 6.1 g/dL (6.6-8.7)
[2020-12-10 04:44] LABS: Aspartate Amino Transferase 29 U/L (0-32)
[2020-12-10] MEDS: morphine 4 mg/mL SDV 1 mL 1 MG IVP (05:09)
[2020-12-10 06:54] LABS: Glucose Point of Care 211 mg/dL (70-110)
--- NOTE | 2020-12-10 07:26 | PM.PN ---
Subjective Subjective: Interval history: weak, sob, cp, back pain, sore throat, fevers Medications: Reviewed: Yes Medication Review Details: Current Medications Acetaminophen (Acetaminophen 325 Mg Tablet) 650 mg PO Q6H PRN PRN Reason: Mild/Mod Pain Or Temp >/= 101 Last Admin: 12/09/20 16:27 Dose: 650 mg Documented by: Albuterol Sulfate (Albuterol 8 Gm Mdi) 2 puff INHALATION Q4H.RESPIRATORY PRN PRN Reason: SHORTNESS OF BREATH Last Admin: 12/09/20 20:48 Dose: 2 puff Documented by: Amlodipine Besylate (Amlodipine 10 Mg Tablet) 10 mg PO DAILY [facility] Last Admin: 12/09/20 07:59 Dose: 10 mg Documented by: Ascorbic Acid (Ascorbic Acid 500 Mg Tablet) 500 mg PO BID [facility] Last Admin: 12/09/20 18:35 Dose: 500 mg Documented by: Aspirin (Aspirin 81 Mg Chew Tablet) 81 mg PO DAILY@08 [facility] Last Admin: 12/09/20 07:59 Dose: 81 mg Documented by: Atorvastatin Calcium (Atorvastatin 40 Mg Tablet) 40 mg PO DAILY@20 [facility] Last Admin: 12/09/20 20:00 Dose: 40 mg Documented by: Brimonidine Tartrate (Brimonidine 0.2% Op Soln 5 Ml Btl) 1 drop EYE-BOTH BID@ [facility] Last Admin: 12/09/20 20:01 Dose: 1 drop Documented by: Clonidine HCl (Clonidine 0.1 Mg Tablet) 0.1 mg PO BID [facility] Last Admin: 12/09/20 18:34 Dose: 0.1 mg Documented by: Clopidogrel Bisulfate (Clopidogrel 75 Mg Tablet) 75 mg PO DAILY@08 [facility] Last Admin: 12/09/20 07:58 Dose: 75 mg Documented by: Dexamethasone (Dexamethasone 4 Mg/Ml Inj) 6 mg IVP Q24H [facility] Last Admin: 12/09/20 13:50 Dose: 6 mg Documented by: Dextrose (Dextrose 50% Syringe 50 Ml) 25 ml IVP ONCE PRN; Protocol PRN Reason: hypoglycemia protocol Dextrose (Dextrose 50% Syringe 50 Ml) 50 ml IVP PRN PRN; Protocol PRN Reason: hypoglycemia protocol Dorzolamide/Timolol (Dorzolamide/Timolol Op Soln 10 Ml Btl) 1 drop EYE-BOTH BID@ [facility] Last Admin: 12/09/20 20:01 Dose: 1 drop Documented by: Escitalopram Oxalate (Escitalopram 10 Mg Tablet) 10 mg PO DAILY@08 [facility] Last Admin: 12/09/20 07:58 Dose: 10 mg Documented by: Glucagon (Glucagon 1 Mg/Ml Inj 1 Ml) 1 mg IM ONCE PRN; Protocol PRN Reason: Adult Acute Hypoglycemia Prot. Heparin Sodium (Beef Lung) (Heparin 5,000 Unit/Ml Inj 1 Ml) 5,000 unit SUBCUT Q12H [facility] Last Admin: 12/10/20 01:36 Dose: 5,000 unit Documented by: Heparin Sodium (Porcine) (Heparin, Porcine 1,000 Unit/Ml Inj 10 Ml) 10,000 unit HE ONCE ONE Stop: 12/10/20 07:31 Ceftriaxone Sodium 1,000 mg/ (Sodium Chloride) 50 mls @ 100 mls/hr IV Q24H [facility]; Protocol Last Infusion: 12/09/20 12:11 Dose: Infused Documented by: Azithromycin 500 mg/ Sodium (Chloride) 250 mls @ 250 mls/hr IV Q24H [facility]; Protocol Last Infusion: 12/09/20 15:40 Dose: Infused Documented by: Insulin Aspart (Insulin Aspart 100 Unit/1 Ml) 0 unit SUBCUT TIDWM [facility]; Protocol Last Admin: 12/09/20 18:34 Dose: 2 unit Documented by: Insulin Aspart (Insulin Aspart 100 Unit/1 Ml) 0 unit SUBCUT BEDTIME [facility]; Protocol Last Admin: 12/09/20 20:21 Dose: 4 unit Documented by: Labetalol HCl (Labetalol 5 Mg/Ml Sdv 20ml) 10 mg IVP Q4H PRN PRN Reason: FOR SBP>180, or DBP>100, HOLD IF HR<60 Last Admin: 12/08/20 04:09 Dose: 10 mg Documented by: Levothyroxine Sodium (Levothyroxine 150 Mcg Tablet) 150 mcg PO DAILY@0800 [facility] Last Admin: 12/09/20 07:59 Dose: 150 mcg Documented by: Morphine Sulfate (Morphine 4 Mg/Ml Sdv 1 Ml) 1 mg IVP Q4H PRN PRN Reason: SEVERE PAIN Last Admin: 12/10/20 05:09 Dose: 1 mg Documented by: Naloxone HCl (Naloxone 0.4 Mg/Ml Sdv) 0.1 mg IVP Q2M PRN PRN Reason: OPIATERV Nitroglycerin (Nitroglycerin 0.4 Mg Sublingual Tablet) 0.4 mg SUBLINGUAL Q5M PRN PRN Reason: Chest Pain Non-Formulary Medication (Netarsudil-Latanoprost [Rocklatan]) 1 drop EYEAFF DAILY@20 [facility] Last Admin: 12/09/20 20:01 Dose: Not Given Documented by: Non-Formulary Medication ([place] 8-Dnm-Niv-Fish Oil [Fish Oil]) 1 cap PO BID@08, [facility] Last Admin: 12/09/20 20:01 Dose: Not Given Documented by: Ondansetron HCl (Ondansetron 2 Mg/Ml Sdv 2 Ml) 4 mg IVP Q8H PRN PRN Reason: vomiting, or N/V if npo Last Admin: 12/09/20 16:27 Dose: 4 mg Documented by: Pantoprazole Sodium (Pantoprazole 40 Mg Sdv) 40 mg IVP Q12H [facility] Last Admin: 12/10/20 01:35 Dose: 40 mg Documented by: Paricalcitol (Paricalcitol 2 Mcg/Ml Sdv 1 Ml) 5 mcg IV ONCE ONE Stop: 12/10/20 11:01 Fluticasone/Salmeterol (Fluticasone-Salmeterol 250-50 Diskus) 1 puff INHALATION BID.RESPIRATORY [facility] Last Admin: 12/09/20 20:48 Dose: 1 puff Documented by: Senna/Docusate Sodium (Sennosides-Docusate Tablet) 2 tab PO BID PRN PRN Reason: Constipation Zinc Gluconate (Zinc Gluconate 50 Mg Tablet) 50 mg PO DAILY [facility] Last Admin: 12/09/20 07:59 Dose: 50 mg Documented by: Vitals/I&O/Wt Last Vital Signs Temp 98.9 F 12/10/20 04:00 Pulse 56 L 12/10/20 06:00 Resp 18 12/10/20 05:09 BP 152/80 12/10/20 04:00 Pulse Ox 94 12/10/20 04:00 12/09/20 12/10/20 12/10/20 22:59 06:59 14:59 Intake Total 1409 / 2211 52 / 2263 Output Total 0 / 0 Balance 1409 / 2211 52 / 2263 Weight last 48 hrs Weight 89.8 kg Physical Exam Narrative: EXAM NARRATIVE: obese, uncomfortable in bed using nc 02 heent- nc/at, eomi, anicteric neck supple lung - crackles and ronchi b/l heart reg +s1 s2, no rub abd soft, nt, nd ext Rt BKA, no edema neuro- a,a, o x 3 Data : 12/10/20 03:10 12/10/20 03:10 Micro: Microbiology 12/07/20 10:05 Urine Culture - Final Urine,Clean Catch Escherichia coli A&P Additional A&P Information 55 yr old female 1. ESRD - HD MWF schedule- off schedule -HD now for 3.5 hrs, 2k, remove 2.5l as tolerated -pth 706- zemplar/ calcitriol 2. COVID-19 pna- per medicine -if need remdesivir- renal dose QOD -appears clinically improving. still w/ pleuritic cp -cxr appears improved after HD 3. diarrhea- CT abd/ pelvis- Minimal nonspecific small bowel dilatation consistent with the clinical history of diarrhea. -improving 4. UTI- escoto sensitive e coli-- renal dose abx 5. leukopenia - anc of 1.8- stable - thrombocytopenia is improving 6.anemia -hgb okay for ESRD 7. dm care - good hgb a1c of 5.8 8.monitor phos w/ HD, binders as needed 9. h/o CAD and trop 133, elevated bnp -per medicine 10. 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
--- NOTE | 2020-12-10 08:49 | PC.SOCIAL ---
IMM Update Attempted to call pt to discuss IMM update, no answer. Placed in pt's chart and gave copy to nurse to give to pt while on isolation. Initialed, dated and signed.
[2020-12-10] MEDS: levothyroxine 150 mcg Tablet PO (09:06)
[2020-12-10] MEDS: dorzolamide/timolol Op Soln 10 mL Btl 1 DROP EYE-BOTH ×2 (09:07→20:58)
--- NOTE | 2020-12-10 09:30 | PC.NURSE ---
went in to give PO meds instructed to by dialysis nurse to check with provider due to dialysis Dr palomino notified of conversation with dialysis nurse ok to hold this am po meds
[2020-12-10] MEDS: brimonidine 0.2% Op Soln 5 mL Btl 1 DROP EYE-BOTH ×2 (09:34→20:58)
[2020-12-10] MEDS: albuterol 8 gm MDI 2 PUFF INHALATION (10:13)
[2020-12-10] MEDS: heparin, porcine 1,000 unit/mL INJ 10 mL 10000 UNIT HE (11:28)
[2020-12-10] MEDS: paricalcitol 2 mcg/mL SDV 1 mL 5 MCG IV (11:30)
[2020-12-10 11:43] LABS: Glucose Point of Care 124 mg/dL (70-110)
[2020-12-10] MEDS: cefTRIAXone 1,000 MG in sodium chloride 0.9% (plus) 50 ML 100 MG IV (13:41)
[2020-12-10] MEDS: dexamethasone 4 mg/mL INJ 6 MG IVP (13:41)
--- NOTE | 2020-12-10 14:00 | P.PN_ITS ---
Subjective Subjective: Interval history: This morning patient was examined, she is getting dialysis, she does tell me that she does feel a bit short of breath, still on 2 L, afebrile overnight, no nausea, no vomiting, her fatigue and tiredness continues to persist, continues to have a poor appetite, Vitals/I&O/Wt Last Vital Signs Temp 98.8 F 12/10/20 11:47 Pulse 60 12/10/20 11:47 Resp 20 H 12/10/20 11:47 BP 137/64 12/10/20 11:47 Pulse Ox 98 12/10/20 11:39 12/09/20 12/10/20 12/10/20 22:59 06:59 14:59 Intake Total 1409 / 2211 52 / 2263 240 / 240 Output Total 0 / 0 Balance 1409 / 2211 52 / 2263 240 / 240 Weight last 48 hrs Weight 87.7 kg Weight 89.8 kg Physical Exam Const: COMMON NORMALS: no acute distress and patient oriented x3 Resp: COMMON NORMALS: normal respiratory effort, No retractions, No use of accessory muscles and clear to auscultation bilaterally AUSCULTATION: clear to auscultation bilaterally Cardio: COMMON NORMALS: regular rate, regular rhythm, S1 normal heart sound p resent and S2 normal heart sound present RATE: regular rate RHYTHM: regular rhythm HEART SOUNDS: S1 normal heart sound present and S2 normal heart sound present GI: COMMON NORMALS: Normal to inspection, nondistended, normoactive bowel sounds present, Soft to palpation and non-tender PALPATION: Yes Soft to palpation Neuro: COMMON NORMALS: patient oriented x3 Psych: COMMON NORMALS: mental status grossly normal Skin: NARRATIVE SKIN EXAM: 1+ pitting edema bilaterally Data : 12/10/20 03:10 12/10/20 03:10 A&P Assessment and plan (1) Acute respiratory failure with hypoxia: Acute hypoxic respiratory failure secondary to COVID-19, fluid overload -Currently on 2 L, has complains of shortness of breath, slightly fluid overloaded, fatigue, malaise -Leukopenia, white blood cell count 2.1 -Thrombocytopenia 129 -Rapid Covid positive -CT angiogram of the chest shows bilateral partial lower lobe consolidation, patchy right upper lung groundglass opacities, consistent with bilateral pulmonary pneumonia or edema -Pro-[place] 0.51 Plan: -Admit to cardiac stepdown unit -PICC line placed due to poor IV access -COVID-19 isolation -Obtain a confirmatory Covid PCR -Advair, albuterol, vitamin C, zinc vitamin D -Rocephin, azithromycin - blood cultures, sputum cultures, urine cultures -Decadron 6 mg IV push daily -A bit fluid overloaded today, will receive dialysis -Oxygen therapy, monitor respiratory status closely -Given patient is dialysis dependent, creatinine, remdesivir has not been studied in dialysis patients, there is a theoretical risk of accumulation of [id number], currently is on 2 L, if her respiratory status worsens or oxygen requirements increased will discuss with patient about pursuing treatment of remdesivir after discussion of the risk and benefits -Currently on renal diet -Full code -Heparin for DVT prophylaxis Dehydration, secondary diarrhea, resolved, off IV hydration Diarrhea, likely secondary to Covid, but did use antibiotics roughly 3 weeks days ago, IV hydration as above, C. difficile, stool studies, CT abdomen shows nonspecific small bowel dilatation consistent with clinical history of diarrhea Urinary tract infection, continue Rocephin follow urine cultures, blood cultures, CT abdomen and pelvis shows no obstructive uropathy or evidence radiographic of pyelonephritis Leukopenia, secondary COVID-19 Thrombocytopenia, lightheadedness COVID-19 Dizziness, secondary dehydration, secondary to BPpv NSTEMI, troponin 133, 6-hour 106, delta negative to -23.[address]-T wave changes, no chest pain complaints, creatinine 6.3, but does have shortness of breath, history of CAD status post stenting x2 -Likely secondary to respiratory failure, end-stage renal disease, possible COVID-19 myocarditis, however cannot rule out underlying cardiac etiology Plan -Monitor for chest pain -Telemetry monitoring -Continue aspirin, Plavix, statin -Obtain a cardiac echocardiogram shows an EF of 55%, grade 2 out of 4 diastolic dysfunction, moderate elevated filling pressures, End-stage renal disease, on hemodialysis, consult nephrology, plan for dialysis today Type 2 diabetes mellitus, continue insulin sliding scale, A1c 5.8 Plan for today continue PT OT, continue oxygen therapy, continue antibiotics, co ntinue steroids, monitor clinically, continue to hold remdesivir Status: Acute (2) Pneumonia due to COVID-19 virus: Status: Acute (3) Diarrhea: Status: Acute (4) UTI (urinary tract infection): Status: Acute Qualifiers: Hematuria presence: with hematuria Urinary tract infection type: site unspecified Qualified Code(s): N39.0 - Urinary tract infection, site not specified; R31.9 - Hematuria, unspecified (5) Leukopenia: Status: Acute Qualifiers: Leukopenia type: other Qualified Code(s): D72.818 - Other decreased white blood cell count (6) Carotid stenosis: Status: Acute Qualifiers: Laterality: bilateral Qualified Code(s): I65.23 - Occlusion and stenosis of bilateral carotid arteries (7) Dizziness: Status: Acute (8) DOROTEO on CPAP: Status: Chronic (9) Hyperlipidemia: Status: Chronic Qualifiers: Hyperlipidemia type: unspecified Qualified Code(s): E78.5 - Hyperlipidemia, unspecified (10) CAD (coronary artery disease): Status: Acute Qualifiers: Coronary Disease-Associated Artery/Lesion type: [place] artery [place] vs. transplanted heart: [place] heart Associated angina: without angina Qualified Code(s): I25.10 - Atherosclerotic heart disease of [place] coronary artery without angina pectoris (11) Chronic diastolic CHF (congestive heart failure): Status: Acute (12) Diabetes mellitus: Status: Acute Qualifiers: Diabetes mellitus type: type 2 Diabetes mellitus rn long term care insulin use: with [facility] use Diabetes mellitus complication status: with neurologic complications Diabetes mellitus complication detail: with polyneuropathy Qualified Code(s): E11.42 - Type 2 diabetes mellitus with diabetic polyneuropathy; Z79.4 - halfway (current) use of insulin (13) HTN (hypertension): Status: Acute Qualifiers: Hypertension type: essential hypertension Qualified Code(s): I10 - Essential (primary) hypertension (14) Hypothyroidism: Status: Acute Qualifiers: Hypothyroidism type: acquired Qualified Code(s): E03.9 - Hypothyroidi sm, unspecified (15) End-stage renal disease on hemodialysis: Status: Acute (16) NSTEMI (non-ST elevated myocardial infarction): Status: Acute Attestations Medical Necessity Statement*: Patient requires hospitalization for acute respi ratory failure with hypoxia secondary COVID-19, fluid overload, leukopenia, thrombocytopenia, NSTEMI Coding Level of Care Code 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 transplanted heart: [place] heart Associated angina: without angina Chronic diastolic CHF (congestive heart failure) I50.32 Diabetes mellitus E11.42; Z79.4 Diabetes mellitus type: type 2 Diabetes mellitus [facility] insulin use: with rn long term care use Diabetes mellitus complication status: with neurologic complications Diabetes mellitus complication detail: with polyneuropathy HTN (hypertension) I10 Hypertension type: essential hypertension Hypothyroidism E03.9 Hypothyroidism type: acquired End-stage renal disease on hemodialysis N18.6; Z99.2 NSTEMI (non-ST elevated myocardial infarction) I21.4
[2020-12-10 15:51] LABS: Coronavirus Test Green County Detected
[2020-12-10] MEDS: azithromycin 500 MG in sodium chloride 0.9% 250 ML 250 MG IV (16:05)
[2020-12-10 17:09] LABS: Glucose Point of Care 299 mg/dL (70-110)
[2020-12-10] MEDS: ascorbic acid 500 mg Tablet PO (17:37)
[2020-12-10] MEDS: cloNIDine 0.1 mg Tablet PO (17:37)
[2020-12-10] MEDS: atorvastatin 40 mg Tablet PO (20:55)
[2020-12-10 23:54] LABS: Glucose Point of Care 329 mg/dL (70-110)
[2020-12-11] VITALS (19 sets, daily range): BP systolic 115–160; BP diastolic 52–79; PULSE 59–88; RESP 15–23; TEMP 36.4–37.3; O2SAT 91–96
[2020-12-11] MEDS: heparin 5,000 unit/mL INJ 1 mL 5000 UNIT SUBCUT ×2 (03:19→13:05)
[2020-12-11] MEDS: pantoprazole 40 mg SDV IVP ×2 (03:19→16:20)
[2020-12-11 04:08] LABS: Hematocrit 35.7 % (37.0-47.0); Hemoglobin 11.3 g/dL (11.5-15.3); Lymphocytes # 0.1 10^3/uL (0.8-4.8); Lymphocytes % 3.8 %; Mean Corpuscular HGB Conc 31.7 g/dL (30.0-36.0); Mean Corpuscular Hemoglobin 30.9 pg (28.0-34.0); Mean Corpuscular Volume 97.5 fL (81-99); Mean Platelet Volume 12.5 fL (7.4-10.4); Monocytes # 0.2 10^3/uL (0.2-0.9); Monocytes % 5.2 %; Neutrophils # 2.59 10^3/uL (1.8-7.7); Neutrophils % 90.7 %; Nucleated Red Blood Cells % 0 %; Platelet Count 122 10^3/cmm (130-400); Red Blood Count 3.66 10^6/uL (4.1-5.3); Red Cell Distribution Width 13.9 % (12.1-15.1); White Blood Count 2.9 10^3/uL (4.0-10.0)
[2020-12-11 04:29] LABS: Alanine Aminotransferase 20 U/L (0-33); Albumin Level 3.1 g/dL (3.5-5.2); Alkaline Phosphatase 95 IU/L (35-105); Blood Urea Nitrogen 35 mg/dL (6-20); Calcium 9.3 mg/dL (8.5-10.5); Carbon Dioxide 27 mmol/L (22-29); Chloride 96 mmol/L (98-107); Globulin 3.2 g/dL (1.3-4.6); Glomerular Filtration Rate 8.2 mL/min (90-130); Glucose 240 mg/dL (65-115); Magnesium 2.1 mg/dL (1.7-2.3); Osmolality Calculated 296 mOsm/kg (285-295); Phosphorus 4.1 mg/dL (2.5-4.5); Sodium 135 mmol/L (136-145); Total Bilirubin 0.3 mg/dL (0.15-1.2); Total Protein 6.3 g/dL (6.6-8.7)
[2020-12-11 04:32] LABS: Anion Gap 16.5 (5-19); Aspartate Amino Transferase 24 U/L (0-32); Potassium 4.5 mmol/L (3.5-5.1)
[2020-12-11 04:34] LABS: Procalcitonin 0.51 ng/mL (0-0.5)
[2020-12-11 04:43] LABS: C Reactive Protein 51.7 mg/L (0.0-4.9); NT Pro B Type Natriuretic Pept 5176 pg/mL (0-125)
[2020-12-11 06:50] LABS: Glucose Point of Care 243 mg/dL (70-110)
--- NOTE | 2020-12-11 08:08 | PM.PN ---
Subjective Subjective: Interval history: continues to improve. did well w/ dialysis yesterday. poor appetite. no diarrhea. no [place]. dec cp. Medications: Reviewed: Yes Medication Review Details: Current Medications Acetaminophen (Acetaminophen 325 Mg Tablet) 650 mg PO Q6H PRN PRN Reason: Mild/Mod Pain Or Temp >/= 101 Last Admin: 12/09/20 16:27 Dose: 650 mg Documented by: Albuterol Sulfate (Albuterol 8 Gm Mdi) 2 puff INHALATION Q4H.RESPIRATORY PRN PRN Reason: SHORTNESS OF BREATH Last Admin: 12/10/20 10:13 Dose: 2 puff Documented by: Amlodipine Besylate (Amlodipine 5 Mg Tablet) 5 mg PO DAILY [facility] Last Admin: 12/10/20 09:40 Dose: Not Given Documented by: Ascorbic Acid (Ascorbic Acid 500 Mg Tablet) 500 mg PO BID [facility] Last Admin: 12/10/20 17:37 Dose: 500 mg Documented by: Aspirin (Aspirin 81 Mg Chew Tablet) 81 mg PO DAILY@08 [facility] Last Admin: 12/10/20 09:39 Dose: Not Given Documented by: Atorvastatin Calcium (Atorvastatin 40 Mg Tablet) 40 mg PO DAILY@20 [facility] Last Admin: 12/10/20 20:55 Dose: 40 mg Documented by: Brimonidine Tartrate (Brimonidine 0.2% Op Soln 5 Ml Btl) 1 drop EYE-BOTH BID@ [facility] Last Admin: 12/10/20 20:58 Dose: 1 drop Documented by: Clonidine HCl (Clonidine 0.1 Mg Tablet) 0.1 mg PO BID [facility] Last Admin: 12/10/20 17:37 Dose: 0.1 mg Documented by: Clopidogrel Bisulfate (Clopidogrel 75 Mg Tablet) 75 mg PO DAILY@08 [facility] Last Admin: 12/10/20 09:39 Dose: Not Given Documented by: Dexamethasone (Dexamethasone 4 Mg/Ml Inj) 6 mg IVP Q24H [facility] Last Admin: 12/10/20 13:41 Dose: 6 mg Documented by: Dextrose (Dextrose 50% Syringe 50 Ml) 25 ml IVP ONCE PRN; Protocol PRN Reason: hypoglycemia protocol Dextrose (Dextrose 50% Syringe 50 Ml) 50 ml IVP PRN PRN; Protocol PRN Reason: hypoglycemia protocol Dorzolamide/Timolol (Dorzolamide/Timolol Op Soln 10 Ml Btl) 1 drop EYE-BOTH BID@08,20 [facility] Last Admin: 12/10/20 20:58 Dose: 1 drop Documented by: Escitalopram Oxalate (Escitalopram 10 Mg Tablet) 10 mg PO DAILY@08 [facility] Last Admin: 12/10/20 09:40 Dose: Not Given Documented by: Glucagon (Glucagon 1 Mg/Ml Inj 1 Ml) 1 mg IM ONCE PRN; Protocol PRN Reason: Adult Acute Hypoglycemia Prot. Heparin Sodium (Beef Lung) (Heparin 5,000 Unit/Ml Inj 1 Ml) 5,000 unit SUBCUT Q12H [facility] Last Admin: 12/11/20 03:19 Dose: 5,000 unit Documented by: Ceftriaxone Sodium 1,000 mg/ (Sodium Chloride) 50 mls @ 100 mls/hr IV Q24H [facility]; Protocol Last Infusion: 12/10/20 14:22 Dose: Infused Documented by: Azithromycin 500 mg/ Sodium (Chloride) 250 mls @ 250 mls/hr IV Q24H [facility]; Protocol Last Infusion: 12/10/20 17:17 Dose: Infused Documented by: Insulin Aspart (Insulin Aspart 100 Unit/1 Ml) 0 unit SUBCUT TIDWM [facility]; Protocol Last Admin: 12/10/20 18:00 Dose: 8 unit Documented by: Insulin Aspart (Insulin Aspart 100 Unit/1 Ml) 0 unit SUBCUT BEDTIME [facility]; Protocol Last Admin: 12/10/20 20:56 Dose: 5 unit Documented by: Labetalol HCl (Labetalol 5 Mg/Ml Sdv 20ml) 10 mg IVP Q4H PRN PRN Reason: FOR SBP>180, or DBP>100, HOLD IF HR<60 Last Admin: 12/08/20 04:09 Dose: 10 mg Documented by: Levothyroxine Sodium (Levothyroxine 150 Mcg Tablet) 150 mcg PO DAILY@0800 [facility] Last Admin: 12/10/20 09:06 Dose: 150 mcg Documented by: Morphine Sulfate (Morphine 4 Mg/Ml Sdv 1 Ml) 1 mg IVP Q4H PRN PRN Reason: SEVERE PAIN Last Admin: 12/10/20 05:09 Dose: 1 mg Documented by: Naloxone HCl (Naloxone 0.4 Mg/Ml Sdv) 0.1 mg IVP Q2M PRN PRN Reason: OPIATERV Nitroglycerin (Nitroglycerin 0.4 Mg Sublingual Tablet) 0.4 mg SUBLINGUAL Q5M PRN PRN Reason: Chest Pain Non-Formulary Medication (Netarsudil-Latanoprost [Rocklatan]) 1 drop EYEAFF DAILY@20 [facility] Last Admin: 12/10/20 20:59 Dose: Not Given Documented by: Non-Formulary Medication (Moran 7-Aul-Glu-Fish Oil [Fish Oil]) 1 cap PO BID@08,20 [facility] Last Admin: 12/10/20 21:11 Dose: Not Given Documented by: Ondansetron HCl (Ondansetron 2 Mg/Ml Sdv 2 Ml) 4 mg IVP Q8H PRN PRN Reason: vomiting, or N/V if npo Last Admin: 12/09/20 16:27 Dose: 4 mg Documented by: Pantoprazole Sodium (Pantoprazole 40 Mg Sdv) 40 mg IVP Q12H [facility] Last Admin: 12/11/20 03:19 Dose: 40 mg Documented by: Fluticasone/Salmeterol (Fluticasone-Salmeterol 250-50 Diskus) 1 puff INHALATION BID.RESPIRATORY [facility] Last Admin: 12/10/20 20:28 Dose: 1 puff Documented by: Senna/Docusate Sodium (Sennosides-Docusate Tablet) 2 tab PO BID PRN PRN Reason: Constipation Zinc Gluconate (Zinc Gluconate 50 Mg Tablet) 50 mg PO DAILY [facility] Last Admin: 12/10/20 09:40 Dose: Not Given Documented by: Vitals/I&O/Wt Last Vital Signs Temp 98.2 F 12/11/20 03:51 Pulse 59 L 12/11/20 05:44 Resp 19 H 12/11/20 03:51 BP 143/61 12/11/20 03:51 Pulse Ox 93 12/11/20 03:51 12/10/20 12/11/20 12/11/20 22:59 06:59 14:59 Intake Total 610 / 900 240 / 1140 Balance 610 / 900 240 / 1140 Weight last 48 hrs Weight 87.7 kg Physical Exam Narrative: EXAM NARRATIVE: obese, comfortable in bed using nc 02 heent- nc/at, eomi, anicteric neck supple, obese, no jvp appreciated Rt ACW tunelled dialysis catheter lung - improved air movement b/l heart reg +s1 s2, no rub abd soft, nt, nd ext Rt BKA, trace LLE edema neuro- a,a, o x 3 Data : 12/11/20 03:43 12/11/20 03:43 A&P Additional A&P Information 55 yr old female 1. ESRD - HD MWF schedule- off schedule -HD in am for 3.5 hrs, 2k, remove 2.5 -3l as tolerated -pth 706- zemplar/ calcitriol 2. COVID-19 pna- per medicine -if need remdesivir- renal dose QOD -appears clinically improving. 3. diarrhea- CT abd/ pelvis- Minimal nonspecific small bowel dilatation consistent with the clinical history of diarrhea. -improving 4. UTI- escoto sensitive e coli-- renal dose abx 5. leukopenia - improving - thrombocytopenia is stable at 122 6.anemia -hgb okay for ESRD 7. dm care - good hgb a1c of 5.8 8.monitor phos w/ HD, binders as needed 9. h/o CAD and trop 133, elevated bnp -per medicine 10. 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
[2020-12-11] MEDS: levothyroxine 150 mcg Tablet PO (08:46)
[2020-12-11] MEDS: clopidogrel 75 mg Tablet PO (08:46)
[2020-12-11] MEDS: zinc gluconate 50 mg Tablet PO (08:46)
[2020-12-11] MEDS: ascorbic acid 500 mg Tablet PO ×2 (08:46→17:31)
[2020-12-11] MEDS: aspirin 81 mg Chew Tablet PO (08:46)
[2020-12-11] MEDS: cloNIDine 0.1 mg Tablet PO ×2 (08:46→17:31)
[2020-12-11] MEDS: escitalopram 10 mg Tablet PO (08:46)
[2020-12-11] MEDS: amlodipine 5 mg Tablet PO (08:46)
[2020-12-11] MEDS: dorzolamide/timolol Op Soln 10 mL Btl 1 DROP EYE-BOTH ×2 (08:47→20:39)
[2020-12-11] MEDS: brimonidine 0.2% Op Soln 5 mL Btl 1 DROP EYE-BOTH ×2 (08:47→20:38)
[2020-12-11] MEDS: albuterol 8 gm MDI 2 PUFF INHALATION ×2 (09:47→21:17)
[2020-12-11 11:46] LABS: Glucose Point of Care 214 mg/dL (70-110)
--- NOTE | 2020-12-11 14:05 | PC.OT ---
OT NOTE: PATIENT UNAVAILABLE FOR THERAPY DUE TO DIALYSIS
[2020-12-11] MEDS: cefTRIAXone 1,000 MG in sodium chloride 0.9% (plus) 50 ML 100 MG IV (15:07)
--- NOTE | 2020-12-11 15:59 | P.PN_ITS ---
Subjective Subjective: Interval history: 55 year old with past medical history of hypertension, dyslipidemia, diabetes mellitus, gastroparesis, neuropathy, s/p right BKA, retinopathy with left eye blindness, chronic diastolic heart failure, coronary artery disease with history of cardiac stunting x2, carotid arterial disease, end-stage renal disease on dialysis who presented to the hospital with respiratory distress. This was associated with nausea, vomiting and diarrhea. Laboratory workup on arrival showed WBC of 3.2, hemoglobin of 12.5, hematocrit 38.5 and platelet count of 129. Sodium 136, potassium 3.5, chloride 96, bicarb 23, BUN 38 and creatinine of 5.9. AST of 27, ALT of 16 and alkaline phosphatase of 135. Troponin T baseline of 130 -> 119.6 -> 106.1. CRP of 48.2, BNP of 6963. TSH of 0.11. COVID 19 ag and PCR were both positive. Imaging studies included chest x-ray which showed mild bilateral subsegmental atelectasis. CT chest which did not show any evidence of pulmonary embolism however patient was noted to have bilateral partial lower lung consolidation, patchy right upper lung ground-glass opacities in interstitial thickening.CT abdomen and pelvis which showed minimal nonspecific small-bowel dilation consistent with clinical history of diarrhea. Repeat chest x-ray showed cardiomegaly wit mild vascular congestion. Patient was started on decadron 6 mg IV daily, Ceftriaxone 1g daily, and azithromycin 500mg daily. Remdesivir was not started due to renal disease. Nephrology was consulted and HD was continued. Required 2L of o2 via NC. Respiratory status remained stable. Blood culture drawn on admission did not show any growth. Urine culture showed e-coli. Cdiff was also negative. Did not have any chest pain however Echo was done which showed pEF 55%, grade II/IV diastolic dysfunction. 12/11 Patient started to complain of left eye pain shortly after HD, 11/14. Noted prior hx of blindness in this eye. Remained on 2L via NC. Was taken for HD. Initial plan to discharge however with eye pain this was postponed. No fever, chills, nausea or vomiting. Medications: Reviewed: Yes Medication Review Details: Current Medications Acetaminophen (Acetaminophen 325 Mg Tablet) 650 mg PO Q6H PRN PRN Reason: Mild/Mod Pain Or Temp >/= 101 Last Admin: 12/09/20 16:27 Dose: 650 mg Documented by: Albuterol Sulfate (Albuterol 8 Gm Mdi) 2 puff INHALATION Q4H.RESPIRATORY PRN PRN Reason: SHORTNESS OF BREATH Last Admin: 12/10/20 10:13 Dose: 2 puff Documented by: Amlodipine Besylate (Amlodipine 5 Mg Tablet) 5 mg PO DAILY [facility] Last Admin: 12/10/20 09:40 Dose: Not Given Documented by: Ascorbic Acid (Ascorbic Acid 500 Mg Tablet) 500 mg PO BID [facility] Last Admin: 12/10/20 17:37 Dose: 500 mg Documented by: Aspirin (Aspirin 81 Mg Chew Tablet) 81 mg PO DAILY@08 [facility] Last Admin: 12/10/20 09:39 Dose: Not Given Documented by: Atorvastatin Calcium (Atorvastatin 40 Mg Tablet) 40 mg PO DAILY@20 [facility] Last Admin: 12/10/20 20:55 Dose: 40 mg Documented by: Brimonidine Tartrate (Brimonidine 0.2% Op Soln 5 Ml Btl) 1 drop EYE-BOTH BID@ [facility] Last Admin: 12/10/20 20:58 Dose: 1 drop Documented by: Clonidine HCl (Clonidine 0.1 Mg Tablet) 0.1 mg PO BID [facility] Last Admin: 12/10/20 17:37 Dose: 0.1 mg Documented by: Clopidogrel Bisulfate (Clopidogrel 75 Mg Tablet) 75 mg PO DAILY@ [facility] Last Admin: 12/10/20 09:39 Dose: Not Given Documented by: Dexamethasone (Dexamethasone 4 Mg/Ml Inj) 6 mg IVP Q24H [facility] Last Admin: 12/10/20 13:41 Dose: 6 mg Documented by: Dextrose (Dextrose 50% Syringe 50 Ml) 25 ml IVP ONCE PRN; Protocol PRN Reason: hypoglycemia protocol Dextrose (Dextrose 50% Syringe 50 Ml) 50 ml IVP PRN PRN; Protocol PRN Reason: hypoglycemia protocol Dorzolamide/Timolol (Dorzolamide/Timolol Op Soln 10 Ml Btl) 1 drop EYE-BOTH BID@ [facility] Last Admin: 12/10/20 20:58 Dose: 1 drop Documented by: Escitalopram Oxalate (Escitalopram 10 Mg Tablet) 10 mg PO DAILY@08 [facility] Last Admin: 12/10/20 09:40 Dose: Not Given Documented by: Glucagon (Glucagon 1 Mg/Ml Inj 1 Ml) 1 mg IM ONCE PRN; Protocol PRN Reason: Adult Acute Hypoglycemia Prot. Heparin Sodium (Beef Lung) (Heparin 5,000 Unit/Ml Inj 1 Ml) 5,000 unit SUBCUT Q12H [facility] Last Admin: 12/11/20 03:19 Dose: 5,000 unit Documented by: Ceftriaxone Sodium 1,000 mg/ (Sodium Chloride) 50 mls @ 100 mls/hr IV Q24H [facility]; Protocol Last Infusion: 12/10/20 14:22 Dose: Infused Documented by: Azithromycin 500 mg/ Sodium (Chloride) 250 mls @ 250 mls/hr IV Q24H [facility]; Protocol Last Infusion: 12/10/20 17:17 Dose: Infused Documented by: Insulin Aspart (Insulin Aspart 100 Unit/1 Ml) 0 unit SUBCUT TIDWM [facility]; Protocol Last Admin: 12/10/20 18:00 Dose: 8 unit Documented by: Insulin Aspart (Insulin Aspart 100 Unit/1 Ml) 0 unit SUBCUT BEDTIME [facility]; Pr otocol Last Admin: 12/10/20 20:56 Dose: 5 unit Documented by: Labetalol HCl (Labetalol 5 Mg/Ml Sdv 20ml) 10 mg IVP Q4H PRN PRN Reason: FOR SBP>180, or DBP>100, HOLD IF HR<60 Last Admin: 12/08/20 04:09 Dose: 10 mg Documented by: Levothyroxine Sodium (Levothyroxine 150 Mcg Tablet) 150 mcg PO DAILY@0800 [facility] Last Admin: 12/10/20 09:06 Dose: 150 mcg Documented by: Morphine Sulfate (Morphine 4 Mg/Ml Sdv 1 Ml) 1 mg IVP Q4H PRN PRN Reason: SEVERE PAIN Last Admin: 12/10/20 05:09 Dose: 1 mg Documented by: Naloxone HCl (Naloxone 0.4 Mg/Ml Sdv) 0.1 mg IVP Q2M PRN PRN Reason: OPIATERV Nitroglycerin (Nitroglycerin 0.4 Mg Sublingual Tablet) 0.4 mg SUBLINGUAL Q5M PRN PRN Reason: Chest Pain Non-Formulary Medication (Netarsudil-Latanoprost [Rocklatan]) 1 drop EYEAFF DAILY@20 [facility] Last Admin: 12/10/20 20:59 Dose: Not Given Documented by: Non-Formulary Medication ([place] 4-Svl-Pyz-Fish Oil [Fish Oil]) 1 cap PO BID@08,20 [facility] Last Admin: 12/10/20 21:11 Dose: Not Given Documented by: Ondansetron HCl (Ondansetron 2 Mg/Ml Sdv 2 Ml) 4 mg IVP Q8H PRN PRN Reason: vomiting, or N/V if npo Last Admin: 12/09/20 16:27 Dose: 4 mg Documented by: Pantoprazole Sodium (Pantoprazole 40 Mg Sdv) 40 mg IVP Q12H [facility] Last Admin: 12/11/20 03:19 Dose: 40 mg Documented by: Fluticasone/Salmeterol (Fluticasone-Salmeterol 250-50 Diskus) 1 puff INHALATION BID.RESPIRATORY [facility] Last Admin: 12/10/20 20:28 Dose: 1 puff Documented by: Senna/Docusate Sodium (Sennosides-Docusate Tablet) 2 tab PO BID PRN PRN Reason: Constipation Zinc Gluconate (Zinc Gluconate 50 Mg Tablet) 50 mg PO DAILY [facility] Last Admin: 12/10/20 09:40 Dose: Not Given Documented by: Vitals/I&O/Wt Last Vital Signs Temp 98.4 F 12/11/20 12:00 Pulse 61 12/11/20 12:00 Resp 18 12/11/20 12:00 BP 160/79 12/11/20 12:00 Pulse Ox 91 12/11/20 12:00 12/11/20 12/11/20 12/11/20 06:59 14:59 22:59 Intake Total 240 / 1140 300 / 300 Output Total 100 / 100 Balance 240 / -1660 200 / 200 Weight last 48 hrs Weight 87.7 kg Physical Exam Const: COMMON NORMALS: no acute distress and patient oriented x3 GENERAL APPEARANCE: cooperative HENMT: COMMON NORMALS: normocephalic HEAD & SCALP: normocephalic Eye: COMMON NORMALS: Equal, round and reactive pupils present GENERAL EYE: appearance normal, both eyes and all related structures PUPIL: Yes Equal, round and reactive pupils present Neck/C-Spine: COMMON NORMALS: full ROM, no lymphadenopathy, no JVD and Thyroid normal THYROID: Thyroid normal Lymph: LYMPHATIC: no lymphadenopathy noted Resp: COMMON NORMALS: normal respiratory effort, No retractions, No use of accessory muscles and clear to auscultation bilaterally AUSCULTATION: clear to auscultation bilaterally and diminished lung sounds diffuse Cardio: COMMON NORMALS: no JVD, regular rate, regular rhythm, S1 normal heart sound present, S2 normal heart sound present, No gallops present (Cardio), No clicks present (Cardio) and No murmurs present (Cardio) RATE: regular rate RHYTHM: regular rhythm HEART SOUNDS: S1 normal heart sound present and S2 normal heart sound present GI: COMMON NORMALS: Normal to inspection, nondistended, normoactive bowel sounds present, Soft to palpation and non-tender PALPATION: Yes Soft to palpation Extremity: COMMON NORMALS: no pedal edema Neuro: COMMON NORMALS: patient oriented x3, CN's II-XII intact bilaterally, moves all extremities and no focal motor deficits Psych: COMMON NORMALS: mental status grossly normal, Normal thought process present and cooperative THOUGHT PROCESS: Normal thought process present Skin: NARRATIVE SKIN EXAM: 1+ pitting edema bilaterally Data : 12/11/20 03:43 12/11/20 03:43 A&P Assessment and plan (1) Acute respiratory failure with hypoxia: Acute hypoxic respiratory failure secondary to COVID-19, fluid overload Wean 02 as tolerated Improved Completed remdesivir Abx stable. Urinary tract infection, continue Rocephin follow urine cultures, blood cultures, CT abdomen and pelvis shows no obstructive uropathy or evidence radiographic of pyelonephritis Thrombocytopenia, lightheadedness COVID-19 Dizziness, secondary dehydration, secondary to BPpv NSTEMI Stable Cardiac work up End-stage renal disease, on hemodialysis on HD Stable Type 2 diabetes mellitus, continue insulin sliding scale, A1c 5.8 Discharge held due to left eye pain. Status: Acute (2) Pneumonia due to COVID-19 virus: Status: Acute (3) Diarrhea: Status: Acute (4) UTI (urinary tract infection): Status: Acute Qualifiers: Hematuria presence: with hematuria Urinary tract infection type: site unspecified Qualified Code(s): N39.0 - Urinary tract infection, site not specified; R31.9 - Hematuria, unspecified (5) Leukopenia: Status: Acute Qualifiers: Leukopenia type: other Qualified Code(s): D72.818 - Other decreased white blood cell count (6) Carotid stenosis: Status: Acute Qualifiers: Laterality: bilateral Qualified Code(s): I65.23 - Occlusion and stenosis of bilateral carotid arteries (7) Dizziness: Status: Acute (8) DOROTEO on CPAP: Status: Chronic (9) Hyperlipidemia: Status: Chronic Qualifiers: Hyperlipidemia type: unspecified Qualified Code(s): E78.5 - Hyperlipidemia, unspecified (10) CAD (coronary artery disease): Status: Acute Qualifiers: Associated angina: without angina Coronary Disease-Associated Artery/Lesion type: stebbins artery [place] vs. transplanted heart: stebbins heart Qualified Code(s): I25.10 - Atherosclerotic heart disease of stebbins coronary artery without angina pectoris (11) Chronic diastolic CHF (congestive heart failure): Status: Acute (12) Diabetes mellitus: Status: Acute Qualifiers: Diabetes mellitus complication detail: with polyneuropathy Diabetes mellitus complication status: with neurologic complications Diabetes mellitus extermination supervisor insulin use: with extermination supervisor use Diabetes mellitus type: type 2 Qualified Code(s): E11.42 - Type 2 diabetes mellitus with diabetic polyneuropathy; Z79.4 - assistant terminal manager (current) use of insulin (13) HTN (hypertension): Status: Acute Qualifiers: Hypertension type: essential hypertension Qualified Code(s): I10 - Essential (primary) hypertension (14) Hypothyroidism: Status: Acute Qualifiers: Hypothyroidism type: acquired Qualified Code(s): E03.9 - Hypothyroidism, unspecified (15) End-stage renal disease on hemodialysis: Status: Acute (16) NSTEMI (non-ST elevated myocardial infarction): Status: Acute Attestations 2 Medical Necessity Statement*: Will continue hospitalization for pain control and o2 arragement. Time Spent in Patient Care: Greater than 35 minutes (>than 50% of time spent in counselling and/or direct pt care on unit) . Coding Level of Care Code Acute Casing Worker for [facility] Fwd Diagnoses Acute respiratory failure with hypoxia J96.01 Pneumonia due to COVID-19 virus U07.1; J12.82 Diarrhea R19.7 UTI (urinary tract infection) N39.0; R31.9 Hematuria presence: with hematuria Urinary tract infection type: site unspecified Leukopenia D72.818 Leukopenia type: other Carotid stenosis I65.23 Laterality: bilateral Dizziness R42 DOROTEO on CPAP G47.33; Z99.89 Hyperlipidemia E78.5 Hyperlipidemia type: unspecified CAD (coronary artery disease) I25.10 Associated angina: without angina Coronary Disease-Associated Artery/Lesion type: stebbins artery [place] vs. transplanted heart: stebbins heart Chronic diastolic CHF (congestive heart failure) I50.32 Diabetes mellitus E11.42; Z79.4 Diabetes mellitus complication detail: with polyneuropathy Diabetes mellitus complication status: with neurologic complications Diabetes mellitus residential insulin use: with extermination supervisor use Diabetes mellitus type: type 2 HTN (hypertension) I10 Hypertension type: essential hypertension Hypothyroidism E03.9 Hypothyroidism type: acquired End-stage renal disease on hemodialysis N18.6; Z99.2 NSTEMI (non-ST elevated myocardial infarction) I21.4
[2020-12-11] MEDS: dexamethasone 4 mg/mL INJ 6 MG IVP (16:20)
--- NOTE | 2020-12-11 16:20 | PC.NURSE ---
patient reports pain behind the eye during dialysis, Dr agustin notified orders placed
[2020-12-11] MEDS: azithromycin 500 MG in sodium chloride 0.9% 250 ML 250 MG IV (16:32)
[2020-12-11] MEDS: oxyCODONE 5 mg IR Tab/Cap PO (16:36)
[2020-12-11 17:47] LABS: Glucose Point of Care 151 mg/dL (70-110)
[2020-12-11] MEDS: atorvastatin 40 mg Tablet PO (20:39)
[2020-12-11 20:45] LABS: Glucose Point of Care 221 mg/dL (70-110)
[2020-12-12] VITALS (12 sets, daily range): BP systolic 123–141; BP diastolic 62–85; PULSE 0–66; RESP 15–18; TEMP 36.5–36.9; O2SAT 82–95
[2020-12-12] MEDS: heparin 5,000 unit/mL INJ 1 mL 5000 UNIT SUBCUT (02:57)
[2020-12-12] MEDS: pantoprazole 40 mg SDV IVP (02:57)
--- NOTE | 2020-12-12 04:17 | PC.NURSE ---
Patient denies any recurring eye pain during this shift. Reports feeling well this morning.
[2020-12-12 06:02] LABS: Hematocrit 38.5 % (37.0-47.0); Hemoglobin 12.3 g/dL (11.5-15.3); Lymphocytes # 0.2 10^3/uL (0.8-4.8); Lymphocytes % 4.4 %; Mean Corpuscular HGB Conc 31.9 g/dL (30.0-36.0); Mean Corpuscular Hemoglobin 31.2 pg (28.0-34.0); Mean Corpuscular Volume 97.7 fL (81-99); Mean Platelet Volume 12.2 fL (7.4-10.4); Monocytes # 0.1 10^3/uL (0.2-0.9); Monocytes % 3.5 %; Neutrophils # 3.13 10^3/uL (1.8-7.7); Neutrophils % 91.2 %; Nucleated Red Blood Cells % 0 %; Platelet Count 141 10^3/cmm (130-400); Red Blood Count 3.94 10^6/uL (4.1-5.3); Red Cell Distribution Width 13.9 % (12.1-15.1); White Blood Count 3.4 10^3/uL (4.0-10.0)
--- NOTE | 2020-12-12 06:54 | P.PN_ITS ---
Subjective Subjective: Interval history: feels better. had a [place] lastnight and did not go home Medications: Reviewed: Yes Medication Review Details: Current Medications Acetaminophen (Acetaminophen 325 Mg Tablet) 650 mg PO Q6H PRN PRN Reason: Mild/Mod Pain Or Temp >/= 101 Last Admin: 12/09/20 16:27 Dose: 650 mg Documented by: Albuterol Sulfate (Albuterol 8 Gm Mdi) 2 puff INHALATION Q4H.RESPIRATORY PRN PRN Reason: SHORTNESS OF BREATH Last Admin: 12/11/20 21:17 Dose: 2 puff Documented by: Amlodipine Besylate (Amlodipine 5 Mg Tablet) 5 mg PO DAILY [facility] Last Admin: 12/11/20 08:46 Dose: 5 mg Documented by: Ascorbic Acid (Ascorbic Acid 500 Mg Tablet) 500 mg PO BID [facility] Last Admin: 12/11/20 17:31 Dose: 500 mg Documented by: Aspirin (Aspirin 81 Mg Chew Tablet) 81 mg PO DAILY@08 [facility] Last Admin: 12/11/20 08:46 Dose: 81 mg Documented by: Atorvastatin Calcium (Atorvastatin 40 Mg Tablet) 40 mg PO DAILY@20 [facility] Last Admin: 12/11/20 20:39 Dose: 40 mg Documented by: Brimonidine Tartrate (Brimonidine 0.2% Op Soln 5 Ml Btl) 1 drop EYE-BOTH BID@ [facility] Last Admin: 12/11/20 20:38 Dose: 1 drop Documented by: Clonidine HCl (Clonidine 0.1 Mg Tablet) 0.1 mg PO BID [facility] Last Admin: 12/11/20 17:31 Dose: 0.1 mg Documented by: Clopidogrel Bisulfate (Clopidogrel 75 Mg Tablet) 75 mg PO DAILY@08 [facility] Last Admin: 12/11/20 08:46 Dose: 75 mg Documented by: Dexamethasone (Dexamethasone 4 Mg/Ml Inj) 6 mg IVP Q24H [facility] Last Admin: 12/11/20 16:20 Dose: 6 mg Documented by: Dextrose (Dextrose 50% Syringe 50 Ml) 25 ml IVP ONCE PRN; Protocol PRN Reason: hypoglycemia protocol Dextrose (Dextrose 50% Syringe 50 Ml) 50 ml IVP PRN PRN; Protocol PRN Reason: hypoglycemia protocol Dorzolamide/Timolol (Dorzolamide/Timolol Op Soln 10 Ml Btl) 1 drop EYE-BOTH BI D@ [facility] Last Admin: 12/11/20 20:39 Dose: 1 drop Documented by: Escitalopram Oxalate (Escitalopram 10 Mg Tablet) 10 mg PO DAILY@08 [facility] Last Admin: 12/11/20 08:46 Dose: 10 mg Documented by: Glucagon (Glucagon 1 Mg/Ml Inj 1 Ml) 1 mg IM ONCE PRN; Protocol PRN Reason: Adult Acute Hypoglycemia Prot. Heparin Sodium (Beef Lung) (Heparin 5,000 Unit/Ml Inj 1 Ml) 5,000 unit SUBCUT Q12H [facility] Last Admin: 12/12/20 02:57 Dose: 5,000 unit Documented by: Ceftriaxone Sodium 1,000 mg/ (Sodium Chloride) 50 mls @ 100 mls/hr IV Q24H [facility]; Protocol Last Infusion: 12/11/20 15:37 Dose: Infused Documented by: Azithromycin 500 mg/ Sodium (Chloride) 250 mls @ 250 mls/hr IV Q24H [facility]; Protocol Last Infusion: 12/11/20 17:50 Dose: Infused Documented by: Insulin Aspart (Insulin Aspart 100 Unit/1 Ml) 0 unit SUBCUT TIDWM [facility]; Protocol Last Admin: 12/11/20 17:44 Dose: Not Given Documented by: Insulin Aspart (Insulin Aspart 100 Unit/1 Ml) 0 unit SUBCUT BEDTIME [facility]; Protocol Last Admin: 12/11/20 20:39 Dose: 3 unit Documented by: Labetalol HCl (Labetalol 5 Mg/Ml Sdv 20ml) 10 mg IVP Q4H PRN PRN Reason: FOR SBP>180, or DBP>100, HOLD IF HR<60 Last Admin: 12/08/20 04:09 Dose: 10 mg Documented by: Levothyroxine Sodium (Levothyroxine 150 Mcg Tablet) 150 mcg PO DAILY@0800 [facility] Last Admin: 12/11/20 08:46 Dose: 150 mcg Documented by: Naloxone HCl (Naloxone 0.4 Mg/Ml Sdv) 0.1 mg IVP Q2M PRN PRN Reason: OPIATERV Nitroglycerin (Nitroglycerin 0.4 Mg Sublingual Tablet) 0.4 mg SUBLINGUAL Q5M PRN PRN Reason: Chest Pain Non-Formulary Medication (Netarsudil-Latanoprost [Rocklatan]) 1 drop EYEAFF DAILY@20 [facility] Last Admin: 12/11/20 20:39 Dose: Not Given Documented by: Non-Formulary Medication ([place] 5-Fxx-Coy-Fish Oil [Fish Oil]) 1 cap PO BID@ [facility] Last Admin: 12/11/20 20:39 Dose: Not Given Documented by: Ondansetron HCl (Ondansetron 2 Mg/Ml Sdv 2 Ml) 4 mg IVP Q8H PRN PRN Reason: vomiting, or N/V if npo Last Admin: 12/09/20 16:27 Dose: 4 mg Documented by: Pantoprazole Sodium (Pantoprazole 40 Mg Sdv) 40 mg IVP Q12H [facility] Last Admin: 12/12/20 02:57 Dose: 40 mg Documented by: Paricalcitol (Paricalcitol 2 Mcg/Ml Sdv 1 Ml) 5 mcg IV ONCE ONE Stop: 12/12/20 10:31 Fluticasone/Salmeterol (Fluticasone-Salmeterol 250-50 Diskus) 1 puff INHALATION BID.RESPIRATORY [facility] Last Admin: 12/11/20 21:18 Dose: 1 puff Documented by: Senna/Docusate Sodium (Sennosides-Docusate Tablet) 2 tab PO BID PRN PRN Reason: Constipation Zinc Gluconate (Zinc Gluconate 50 Mg Tablet) 50 mg PO DAILY [facility] Last Admin: 12/11/20 08:46 Dose: 50 mg Documented by: Vitals/I&O/Wt Last Vital Signs Temp 98.4 F 12/12/20 04:00 Pulse 59 L 12/12/20 05:50 Resp 17 12/12/20 04:00 BP 141/66 12/12/20 04:00 Pulse Ox 93 12/12/20 04:00 12/11/20 12/11/20 12/12/20 14:59 22:59 06:59 Intake Total 300 / 300 820 / 1120 150 / 1270 Output Total 100 / 100 3100 / 3200 Balance 200 / 200 -2280 / -2080 150 / -1930 Weight last 48 hrs Weight 85.6 kg Weight 87.7 kg Physical Exam Narrative: EXAM NARRATIVE: obese, comfortable in bed using nc 02 heent- nc/at, eomi, anicteric neck supple, obese, no jvp appreciated Rt ACW tunelled dialysis catheter lung - improved air movement b/l, some crackles b/l heart reg +s1 s2, no rub abd soft, nt, nd ext Rt BKA, trace LLE edema neuro- a,a, o x 3 Data : 12/12/20 04:29 12/11/20 03:43 A&P Additional A&P Information 55 yr old female 1. ESRD - HD MWF schedule- -HD in am for 3.5 hrs, 2k, remove 2.5 -3l as tolerated -pth 706- zemplar/ calcitriol 2. COVID-19 pna- per medicine -appears clinically improving. 3. diarrhea- CT abd/ pelvis- Minimal nonspecific small bowel dilatation consistent with the clinical history of diarrhea. -improving 4. UTI- escoto sensitive e coli-- renal dose abx 5. leukopenia - improving - thrombocytopenia improved 6.anemia -hgb okay for ESRD 7. dm care - good hgb a1c of 5.8 8.monitor phos w/ HD, binders as needed 9. h/o CAD and trop 133, elevated bnp -per medicine 10. 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
[2020-12-12 07:05] LABS: Glucose Point of Care 277 mg/dL (70-110)
--- NOTE | 2020-12-12 09:24 | PC.SOCIAL ---
IMM Update Attempted to call pt's room and cell phone to update medicare rights; no answer. Left copy with nurse. Timed, initialed and dated copy in chart.
--- NOTE | 2020-12-12 11:03 | PC.CHAP ---
Pastoral Care Encounter/Spiritual Assessment Type of Contact [] Declined gas booster engineer visit [] Patient/Family/Request visit [] Outpatient visit [] Follow-up visit [] Physician referral [] Code/Alert [] Routine visit [] Staff referral [] Actively dying [] Patient sleeping [] Family support [] [] Out of room [] Palliative care [] [] Receiving care in room [] Pre-surgical visit [] Trauma [] Long length of stay [] ICU visit [x] Other: Isolation Relational/Emotional Strength [] Patient feels connected with others/family/visitors/staff [] Distress [] Loneliness/isolation [] Abandonment Spirituality of Patient [] Person of [place]a [] Attends Adventist of their [place] [] Believes in Prayer [] Reads Bible or Orthodoxy materials [] There are Spiritual issues to be addressed Data Typist Interventions [] Prayer [] Active listening [] Non-anxious presence [] Spiritual/emotional support [] Crisis/trauma care [] Spiritual counseling [] Bereavement support [] Provided bereavement packet [] Provided Bible/devotional materials [] Provided toy/stuffed animal, coloring book to patient or family member [] Provided Communion [] Anointing/[place] [] Salvation [] Completed spiritual assessment [] Other: Impact on Illness or Injury [] Angry [] Fearful [] Anxious [] Often cries [] Exhaustion [] Unable to work [] Unable to attend buddhist [] Unable to walk/stand [] Unable to read [] Unable to drive [] Unable to eat/drink [] Unable to sleep [] Unable to be with family [] Patient intubated [] Other: Summary Isolation Time spent with patient 5 mins
[2020-12-12 11:16] LABS: Glucose Point of Care 297 mg/dL (70-110)
[2020-12-12] MEDS: ascorbic acid 500 mg Tablet PO (11:38)
[2020-12-12] MEDS: cloNIDine 0.1 mg Tablet PO (11:38)
[2020-12-12] MEDS: zinc gluconate 50 mg Tablet PO (11:40)
[2020-12-12] MEDS: escitalopram 10 mg Tablet PO (11:40)
[2020-12-12] MEDS: aspirin 81 mg Chew Tablet PO (11:41)
[2020-12-12] MEDS: levothyroxine 150 mcg Tablet PO (11:41)
[2020-12-12] MEDS: clopidogrel 75 mg Tablet PO (11:41)
[2020-12-12] MEDS: amlodipine 5 mg Tablet PO (11:41)
[2020-12-12] MEDS: cefTRIAXone 1,000 MG in sodium chloride 0.9% (plus) 50 ML 50 MG IV (12:19)
--- NOTE | 2020-12-12 13:43 | PC.OT ---
PER NURSING, PATIENT WILL DISCHARGE AFTER HOME O2 EVALUATION. NO SKILLED OT PROVIDED DUE TO DISCHARGE.
--- NOTE | 2020-12-12 14:57 | PM.DCS ---
Discharge Providers Date of Admission: 12/07/20 11:02 Date of Discharge: December 12, 2020 Attending Provider at Admission: Maikol Lemos MD Attending Provider at Discharge: David Zabala Primary Care Provider: Yovany Leonardo MD Diagnoses at Discharge Discharge Diagnosis (1) Acute respiratory failure with hypoxia: Status: Acute (2) Pneumonia due to COVID-19 virus: Status: Acute (3) Diarrhea: Status: Acute (4) UTI (urinary tract infection): Status: Acute Qualifiers: Hematuria presence: with hematuria Urinary tract infection type: site unspecified Qualified Code(s): N39.0 - Urinary tract infection, site not specified; R31.9 - Hematuria, unspecified (5) Leukopenia: Status: Acute Qualifiers: Leukopenia type: other Qualified Code(s): D72.818 - Other decreased white blood cell count (6) Carotid stenosis: Status: Acute Qualifiers: Laterality: bilateral Qualified Code(s): I65.23 - Occlusion and stenosis of bilateral carotid arteries (7) Dizziness: Status: Acute (8) DOROTEO on CPAP: Status: Chronic (9) Hyperlipidemia: Status: Chronic Qualifiers: Hyperlipidemia type: unspecified Qualified Code(s): E78.5 - Hyperlipidemia, unspecified (10) CAD (coronary artery disease): Status: Acute Qualifiers: Coronary Disease-Associated Artery/Lesion type: [place] artery [place] vs. transplanted heart: [place] heart Associated angina: without angina Qualified Code(s): I25.10 - Atherosclerotic heart disease of [place] coronary artery without angina pectoris (11) Chronic diastolic CHF (congestive heart failure): Status: Acute (12) Diabetes mellitus: Status: Acute Qualifiers: Diabetes mellitus type: type 2 Diabetes mellitus senior care insulin use: with predatory animal exterminator use Diabetes mellitus complication status: with neurologic complications Diabetes mellitus complication detail: with polyneuropathy Qualified Code(s): E11.42 - Type 2 diabetes mellitus with diabetic polyneuropathy; Z79.4 - FCI (current) use of insulin (13) HTN (hypertension): Status: Acute Qualifiers: Hypertension type: essential hypertension Qualified Code(s): I10 - Essential (primary) hypertension (14) Hypothyroidism: Status: Acute Qualifiers: Hypothyroidism type: acquired Qualified Code(s): E03.9 - Hypothyroidism, unspecified (15) End-stage renal disease on hemodialysis: Status: Acute (16) NSTEMI (non-ST elevated myocardial infarction): Status: Acute Reason for Visit Reason for Visit: N/V/D, DIZZY Hospital Course Hospital Course 55 year old with past medical history of hypertension, dyslipidemia, diabetes mellitus, gastroparesis, neuropathy, s/p right BKA, retinopathy with left eye blindness, chronic diastolic heart failure, coronary artery disease with history of cardiac stunting x2, carotid arterial disease, end-stage renal disease on dialysis who presented to the hospital with respiratory distress. This was associated with nausea, vomiting and diarrhea. Laboratory workup on arrival showed WBC of 3.2, hemoglobin of 12.5, hematocrit 38.5 and platelet count of 129. Sodium 136, potassium 3.5, chloride 96, bicarb 23, BUN 38 and creatinine of 5.9. AST of 27, ALT of 16 and alkaline phosphatase of 135. Troponin T baseline of 130 -> 119.6 -> 106.1. CRP of 48.2, BNP of 6963. TSH of 0.11. COVID 19 ag and PCR were both positive. Imaging studies included chest x-ray which showed mild bilateral subsegmental atelectasis. CT chest which did not show any evidence of pulmonary embolism however patient was noted to have bilateral partial lower lung consolidation, patchy right upper lung ground-glass opacities in interstitial thickening.CT abdomen and pelvis which showed minimal nonspecific small-bowel dilation consistent with clinical history of diarrhea. Repeat chest x-ray showed cardiomegaly wit mild vascular congestion. Patient was started on decadron 6 mg IV daily, Ceftriaxone 1g daily, and azithromycin 500mg daily. Remdesivir was not started due to renal disease. Nephrology was consulted and HD was continued. Required 2L of o2 via NC. Respiratory status remained stable. Blood culture drawn on admission did not show any growth. Urine culture showed e-coli. Cdiff was also negative. Did not have any chest pain however Echo was done which showed pEF 55%, grade II/IV diastolic dysfunction. On 12/11 patient started to complain of left eye pain shortly after HD, Noted prior hx of blindness in this eye. This had resolved. Remained on 2L via NC. Patient was stable for discharge. Physical Exam Const: COMMON NORMALS: no acute distress and patient oriented x3 GENERAL APPEARANCE: cooperative HENMT: COMMON NORMALS: normocephalic HEAD & SCALP: normocephalic Eye: COMMON NORMALS: Equal, round and reactive pupils present GENERAL EYE: appearance normal, both eyes and all related structures PUPIL: Yes Equal, round and reactive pupils present Neck/C-Spine: COMMON NORMALS: full ROM, no lymphadenopathy, no JVD and Thyroid normal THYROID: Thyroid normal Lymph: LYMPHATIC: no lymphadenopathy noted Resp: COMMON NORMALS: normal respiratory effort, No retractions, No use of accessory muscles and clear to auscultation bilaterally AUSCULTATION: clear to auscultation bilaterally and diminished lung sounds diffuse Cardio: COMMON NORMALS: no JVD, regular rate, regular rhythm, S1 normal heart sound present, S2 normal heart sound present, No gallops present (Cardio), No clicks present (Cardio) and No murmurs present (Cardio) RATE: regular rate RHYTHM: regular rhythm HEART SOUNDS: S1 normal heart sound present and S2 normal heart sound present GI: COMMON NORMALS: Normal to inspection, nondistended, normoactive bowel sounds present, Soft to palpation and non-tender PALPATION: Yes Soft to palpation Extremity: COMMON NORMALS: no pedal edema Neuro: COMMON NORMALS: patient oriented x3, CN's II-XII intact bilaterally, moves all extremities and no focal motor deficits Psych: COMMON NORMALS: mental status grossly normal, Normal thought process present and cooperative THOUGHT PROCESS: Normal thought process present Skin: NARRATIVE SKIN EXAM: 1+ pitting edema bilaterally Discharge Data Data Completed and Pending: Completed Studies During Hospitalization Category Date Time Status CT abdomen pelvis wo con [id number] Urge nt Cat Scan 12/07/20 12:[address] angio chest PE protcl [id number] Stat Cat Scan 12/07/20 11:37 Completed CXRP [XR chest 1V portable [id number]] S tat Exams 12/07/20 13:42 Completed XR chest 1V sandra ble [id number] Routine Exams 12/09/20 07:00 Completed XR chest 1V sandra ble [id number] Urgent Exams 12/07/20 09:35 Completed CV. echo complete * [id number] Routine Ultrasound 12/08/20 13:59 Completed Pending at discharge Category Date Time Status Blood Culture Sta t Lab 12/07/20 10:34 Results Complete Blood Co unt w/Auto AM LABS Lab 12/13/20 04:00 Ordered Comprehensive Met abolic Panel AM LA BS Lab 12/13/20 04:00 Ordered Comprehensive Met abolic Panel AM LA BS Lab 12/13/20 04:00 Ordered Magnesium AM LABS Lab 12/13/20 04:00 Ordered Phosphorus AM LAB S Lab 12/13/20 04:00 Ordered Sputum Culture an d Gram Stain Stat Lab 12/07/20 12:11 Uncollected Labs from last 24 hours 12/12/20 12/12/20 12/12/20 10:55 08:29 06:57 WBC RBC Hgb Hct MCV MCH MCHC RDW Plt Count MPV Neut % (Auto) Lymph % (Auto) [place] % (Auto) Eos % (Auto) Baso % (Auto) Neut # (Auto) Lymph # (Auto) [place] # (Auto) Eos # (Auto) Baso # (Auto) Nucleated RBC % (a uto) Nucleated RBCs # Sodium Cancelled Potassium Cancelled Chloride Cancelled Carbon Dioxide Cancelled Anion Gap Cancelled BUN Cancelled Creatinine Cancelled GFR Calculation Cancelled Glucose Cancelled POC Glucose 297 H 277 H Calculated Osmolal ity Cancelled Calcium Cancelled Phosphorus Cancelled Magnesium Cancelled Total Bilirubin Cancelled AST Cancelled ALT Cancelled Alkaline Phosphata se Cancelled Total Protein Cancelled Albumin Cancelled Globulin Cancelled 12/12/20 12/12/20 12/11/20 04:29 04:29 20:14 WBC 3.4 L RBC 3.94 L Hgb 12.3 Hct 38.5 MCV 97.7 MCH 31.2 MCHC 31.9 RDW 13.9 Plt Count 141 MPV 12.2 H Neut % (Auto) 91.2 Lymph % (Auto) 4.4 [place] % (Auto) 3.5 Eos % (Auto) 0.0 Baso % (Auto) 0.0 Neut # (Auto) 3.13 Lymph # (Auto) 0.2 L [place] # (Auto) 0.1 L Eos # (Auto) 0.0 Baso # (Auto) 0.0 Nucleated RBC % (a uto) 0 Nucleated RBCs # 0.0 Sodium Cancelled Potassium Cancelled Chloride Cancelled Carbon Dioxide Cancelled Anion Gap Cancelled BUN Cancelled Creatinine Cancelled GFR Calculation Cancelled Glucose Cancelled POC Glucose 221 H Calculated Osmolal ity Cancelled Calcium Cancelled Phosphorus Cancelled Magnesium Cancelled Total Bilirubin Cancelled AST Cancelled ALT Cancelled Alkaline Phosphata se Cancelled Total Protein Cancelled Albumin Cancelled Globulin Cancelled 12/11/20 17:33 WBC RBC Hgb Hct MCV MCH MCHC RDW Plt Count MPV Neut % (Auto) Lymph % (Auto) [place] % (Auto) Eos % (Auto) Baso % (Auto) Neut # (Auto) Lymph # (Auto) [place] # (Auto) Eos # (Auto) Baso # (Auto) Nucleated RBC % (a uto) Nucleated RBCs # Sodium Potassium Chloride Carbon Dioxide Anion Gap BUN Creatinine GFR Calculation Glucose POC Glucose 151 H Calculated Osmolal ity Calcium Phosphorus Magnesium Total Bilirubin AST ALT Alkaline Phosphata se Total Protein Albumin Globulin Vitals: Last Vital Signs Temp 97.7 F 12/12/20 13:51 Pulse 60 12/12/20 13:51 Resp 16 12/12/20 13:51 BP 128/85 12/12/20 13:51 Pulse Ox 94 12/12/20 13:51 Discharge Plan Discharge Patient Disposition: Home Condition: Stable Prescriptions: New Advair Diskus 250-50 mcg/dose Blister With Device 1 ea inhalation BID.RESPIRATORY Qty: 1 RF: 0 clonidine HCl 0.1 mg Tablet 0.1 mg PO BID Qty: 30 RF: 0 amlodipine 5 mg Tablet 5 mg PO DAILY Qty: 30 RF: 0 levothyroxine 150 mcg Tablet 150 mcg PO DAILY@0800 Qty: 30 RF: 0 Decadron 6 mg tablet 6 mg PO Q24H Qty: 3 RF: 0 Continued nitroglycerin 0.4 mg tablet, sublingual 0.4 mg SUBLINGUAL Q5M PRN (Reason: Chest Pain) Qty: 25 RF: 6 clopidogrel 75 mg tablet 75 mg PO DAILY@08 Qty: 90 RF: 3 aspirin 81 mg Tablet,Chewable 81 mg PO DAILY@08 RF: 0 pantoprazole 40 mg tablet,delayed release (DR/EC) 40 mg PO DAILY@08 RF: 0 [place] 0.02-0.005 % Drops 1 drp OPHTHALMIC (EYE) DAILY@20 RF: 0 sennosides-docusate sodium 8.6-50 mg tablet 2 tab PO BID PRN (Reason: Constipation) RF: 0 atorvastatin 40 mg Tablet 40 mg PO DAILY@20 RF: 0 cholecalciferol (vitamin D3) [Vitamin D3] 25 mcg (1,000 unit) Tablet 25 mcg PO DAILY@08 RF: 0 multivitamin [Multiple Vitamins] Tablet 1 tab PO DAILY@08 RF: 0 omega 2-diz-uiv-fish oil [Fish Oil] 300-1,000 mg Capsule,Delayed Release(Dr/Ec) 1 cap PO BID@,20 RF: 0 brimonidine 0.2 % drops 1 drp ophthalmic (eye) BID@, RF: 0 dorzolamide-timolol 22.3-6.8 mg/mL drops 1 drp ophthalmic (eye) BID@,20 RF: 0 escitalopram oxalate [Lexapro] 10 mg tablet 10 mg PO DAILY@08 RF: 0 Lantus Solostar U-100 Insulin 100 unit/mL (3 mL) insulin pen 30 unit SUBCUT BID@,20 Qty: 15 RF: 12 ondansetron 4 mg tablet,disintegrating 4 mg PO Q6H PRN (Reason: nausea and vomiting) Qty: 14 RF: 0 Discontinued levothyroxine 112 mcg tablet 224 mcg PO DAILY@0800 Qty: 60 RF: 3 potassium chloride 10 mEq Tablet Extended Release 10 meq PO DAILY@08 RF: 0 losartan 25 mg tablet 25 mg PO DAILY Qty: 30 RF: 0 Discharge Orders: Discharge Order (Routine); Ordered 12/12/20 Ordered By: David Zabala Other Ambulatory Orders: DME: Oxygen (Order) Location: None Selected Ordered By: David Zabala Referrals: Yovany Leonarod MD [Primary Care Provider] - 12/16/20 2:45 am (You have a Hospital Followup with Dr. Leonardo at [facility] on December 16 at 2:45am) Discharge Diet: As Directed Discharge Activity: Resume usual activity Patient Instructions: Corticosteroids (By mouth), Clonidine (By mouth), Levothyroxine (By mouth), Amlodipine (By mouth), Fluticasone/Salmeterol (By breathing), Myocardial Infarction (DC), Opioid Safety Discharge Attestations Time Spent in Discharge Care*: greater than 30 min Specific Discharge Activities: educating patient, discussing with ed case manager/social workers/dc planners, documenting/other paperwork and evaluating patient/reviewing data Status at Discharge: Cognitive status at discharge: cognitively intact, Behavioral status at discharge: cooperative, Functional status at discharge: wheelchair bound Overall status at discharge: patient is progressing back to baseline Quality Metrics Clinical Quality Measures During this hospital stay, did patient experience: None Coding Level of Care Code Acute Chg FW DC note Diagnoses Acute respiratory failure with hypoxia J96.01 Pneumonia due to COVID-19 virus U07.1; J12.82 Diarrhea R19.7 UTI (urinary tract infection) N39.0; R31.9 Hematuria presence: with hematuria Urinary tract infection type: site unspecified Leukopenia D72.818 Leukopenia type: other Carotid stenosis I65.23 Laterality: bilateral Dizziness R42 DOROTEO on CPAP G47.33; Z99.89 Hyperlipidemia E78.5 Hyperlipidemia type: unspecified CAD (coronary artery disease) I25.10 Coronary Disease-Associated Artery/Lesion type: [place] artery [place] vs. transplanted heart: [place] heart Associated angina: without angina Chronic diastolic CHF (congestive heart failure) I50.32 Diabetes mellitus E11.42; Z79.4 Diabetes mellitus type: type 2 Diabetes mellitus senior care insulin use: with senior care use Diabetes mellitus complication status: with neurologic complications Diabetes mellitus complication detail: with polyneuropathy HTN (hypertension) I10 Hypertension type: essential hypertension Hypothyroidism E03.9 Hypothyroidism type: acquired End-stage renal disease on hemodialysis N18.6; Z99.2 NSTEMI (non-ST elevated myocardial infarction) I21.4
== END 2020-12-12 15:55 | disposition home health service (06) | DRG 177 ==
LOC: ER 11:00 → CSU 12:26
PROVIDERS: Internal Medicine Nephrology; Admitting Provider Family Medicine; Emergency Provider Family Medicine; PCP Internal Medicine; Visit Provider Hospitalist
DX: U07.1 COVID-19 (principal); J12.82 Pneumonia due to coronavirus disease 2019; N18.6 End stage renal disease; I21.4 Non-ST elevation (NSTEMI) myocardial infarction; J96.01 Acute respiratory failure with hypoxia; I13.2 Hypertensive heart and chronic kidney disease with heart failure and with stage 5 chronic kidney disease, or end stage renal disease; I50.32 Chronic diastolic (congestive) heart failure; N39.0 Urinary tract infection, site not specified; J98.11 Atelectasis; E11.22 Type 2 diabetes mellitus with diabetic chronic kidney disease; Z99.2 Dependence on renal dialysis; H81.10 Benign paroxysmal vertigo, unspecified ear; I25.10 Atherosclerotic heart disease of native coronary artery without angina pectoris; Z95.5 Presence of coronary angioplasty implant and graft; I65.29 Occlusion and stenosis of unspecified carotid artery; E78.5 Hyperlipidemia, unspecified; E03.9 Hypothyroidism, unspecified; Z86.718 Personal history of other venous thrombosis and embolism; Z89.511 Acquired absence of right leg below knee; R31.9 Hematuria, unspecified; E86.0 Dehydration; F41.9 Anxiety disorder, unspecified; G89.29 Other chronic pain; M53.3 Sacrococcygeal disorders, not elsewhere classified; F40.240 Claustrophobia; F41.1 Generalized anxiety disorder; F32.9 Major depressive disorder, single episode, unspecified; Z86.73 Personal history of transient ischemic attack (TIA), and cerebral infarction without residual deficits; G47.33 Obstructive sleep apnea (adult) (pediatric); Z79.4 Long term (current) use of insulin; Z79.82 Long term (current) use of aspirin; Z79.02 Long term (current) use of antithrombotics/antiplatelets; E11.42 Type 2 diabetes mellitus with diabetic polyneuropathy; E11.319 Type 2 diabetes mellitus with unspecified diabetic retinopathy without macular edema; H54.40 Blindness, one eye, unspecified eye; H57.12 Ocular pain, left eye; R19.7 Diarrhea, unspecified; D69.6 Thrombocytopenia, unspecified
CPT/HCPCS: 36415; 36416; 36569; 36592; 36600; 71045; 71275; 74176; 80048; 80053; 80061; 80500; 81001; 82274; 82310; 82550; 82728; 82803; 82962; 83036; 83605; 83615; 83630; 83735; 83880; 83970; 84100; 84145; 84443; 84484; 85025; 85378; 85610; 86140; 86706; 86803; 87040; 87077; 87086; 87186; 87340; 87426; 87493; 87506; 87635; 90935; 93005; 93306; 94640; 94660; 94664; 96360; 96361; 96372; 97110; 97161; 97166; 97530; 97535; 99283; 99291; C9113; J0456; J0696; J1100; J1644; J1815; J2270; J2405; J2501; J3475; J3490; J3535; J7030; J7040; J7050; Q3014; Q9967

== ENCOUNTER 2020-12-16 15:27 | Emergency (ER) | payer MEDICARE, MEDICAID, SELFPAY ==
[2020-12-16 16:28] VITALS: BP 102/59; PULSE 55; RESP 16; TEMP 36.4; O2SAT 95; BMI 31.6
--- NOTE | 2020-12-16 18:12 | ECG_ITS ---
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 Measurements Intervals [place] Rate: 55 P: 114 WV: 180 QRS: -60 QRSD: 95 T: 57 QT: 428 QTc: 409 Interpretive Statements SINUS BRADYCARDIA MARKED LEFT AXIS DEVIATION [QRS AXIS < -30] POSSIBLE ANTERIOR MYOCARDIAL INFARCTION [30 ms Q WAVE IN V3/V4, OR R < 0.2 mV IN V4], OF INDETERMINATE AGE Compared to ECG 12/08/2020 00:48:36 Left-axis deviation now present Supraventricular rhythm no longer present Right-axis deviation no longer present Myocardial infarct finding still present Electronically Signed On 12-18-2020 0:28:37 CDT by Gerald Smith M.D. [id number] f
--- NOTE | 2020-12-16 18:13 | XRR_ITS ---
PROCEDURE INFORMATION: Exam: XR Chest Exam date and time: 12/16/2020 6:13 PM Age: 55 years old Clinical indication: Cough and shortness of breath; Additional info: Weakness, SOB, cough. Covid + TECHNIQUE: Imaging protocol: XR of the chest. Views: 1 view. COMPARISON: CR XR chest 1V portable [id number] 12/09/2020 6:19 AM FINDINGS: Tubes, catheters and devices: Right central line terminates within the distal SVC. Lungs: Nodular opacities at the peripheral left mid lung. Linear areas of scarring or atelectasis at the right midlung and left lung base. Pleural spaces: Unremarkable. No pleural effusion. No pneumothorax. Heart/Mediastinum: Unremarkable. No cardiomegaly. Bones/joints: Mild DJD of the thoracic spine. XR/XR chest 1V portable [id number] IMPRESSION: Nonspecific nodular opacities along the periphery of the left mid lung, new from most recent comparison. Otherwise, no interval change.
--- NOTE | 2020-12-16 18:30 | W.ED.WEAKNES ---
HPI - Weakness General: Chief complaint: Weakness Stated complaint: COVID +, Weakness, Time Seen by Provider: 12/16/20 18:18 Source: patient Mode of arrival: ambulatory Limitations: no limitations History of Present Illness: HPI Narrative: 55-year-old female who is very well-known to the ER has a history of end-stage renal disease and is on dialysis. Patient also was recently diagnosed with Covid on December 07. She states that today after getting her dialysis started having chest pain. States pain is a sharp pain in the center of her chest and she rates it a 8 out of 10. Denies any worsening proving factors. She denies any worsening shortness of breath. Patient is currently on 2 L she started 1 week ago when she is satting 98% on that 2 L. Associated symptoms: Reports chest pain; Denies chills, dysuria, easy bruising, fever(s), headache(s), nausea or vomiting Review of Systems Const: Denies: fever(s), chills, body aches or change in appetite Eyes: Denies: blurry vision or eye discomfort ENMT: Denies: throat pain or dental pain Card: Reports: chest pain Resp: Denies: dyspnea GI: Denies: abdominal pain, nausea, vomiting or diarrhea : Denies: dysuria Musc: Denies: neck pain or back pain Skin/Breast: Denies: rash Neuro: Denies: headache(s) Psych: Denies: depression Refugio/Lymph: Denies: easy bruising All/Imm: Denies: urticaria PFSH ED PFSH: Medical History Anxiety BPPV (benign paroxysmal positional vertigo) CAD (coronary artery disease) Carotid stenosis Chronic diastolic CHF (congestive heart failure) Chronic left sacroiliac joint pain Claustrophobia Diabetes mellitus Diverticulitis Elevated troponin End stage kidney disease End stage renal disease ESBL (extended spectrum beta-lactamase) producing bacteria infection DAILY (generalized anxiety disorder) Gastroparesis GERD (gastroesophageal reflux disease) Gram-negative bacteremia HTN (hypertension) Hyperlipidemia Hypothyroidism Major depression, recurrent DOROTEO on CPAP Partial nontraumatic amputation of left foot (~06/2019) Peripheral vascular disease Peritonitis associated with peritoneal dialysis Phantom pain Suicidal ideation TIA (transient ischemic attack) Vitamin D deficiency Surgical History AV (arteriovenous fistula) (~10/2020) H/O hysterectomy with oophorectomy History of appendectomy History of heart artery stent (~2018) LAD, done in [place], [place] History of hysterectomy History of left heart catheterization History of right below knee amputation Peritoneal dialysis catheter in place Removed due to recurrent peritonitis S/P cholecystectomy S/P PICC central line placement (~2019) Status post amputation of toe Family History Denies family history of CAD (coronary artery disease) Clotting disorder Dementia Bleeding disorder Social History Smoking and tobacco status: never smoked Alcohol intake: never Household members: spouse and family History of recent travel: No Physical Exam Const: COMMON NORMALS: no acute distress, patient oriented x3 and healthy appearing HENMT: COMMON NORMALS: normocephalic and atraumatic HEAD & SCALP: normocephalic and atraumatic Eye: COMMON NORMALS: Equal, round and reactive pupils present and EOMs intact bilaterally PUPIL: Yes Equal, round and reactive pupils present Neck/C-Spine: COMMON NORMALS: full ROM and supple Chest: COMMONS NORMALS: normal inspection of the chest and normal palpation of entire chest wall Resp: COMMON NORMALS: normal respiratory effort, No retractions, No use of accessory muscles and clear to auscultation bilaterally AUSCULTATION: clear to auscultation bilaterally Cardio: COMMON NORMALS: regular rate, regular rhythm and No murmurs present (Cardio) RATE: regular rate RHYTHM: regular rhythm GI: COMMON NORMALS: Normal to inspection, nondistended, normoactive bowel sounds present, Soft to palpation, non-tender and no masses PALPATION: Yes Soft to palpation Extremity: COMMON NORMALS: normal to inspection and full ROM Neuro: COMMON NORMALS: patient oriented x3, moves all extremities and no focal motor deficits Psych: COMMON NORMALS: mental status grossly normal, Normal thought process present and cooperative THOUGHT PROCESS: Normal thought process present Skin: COMMON NORMALS: no rashes or lesions noted and no wounds GENERAL SKIN EXAM: no rashes or lesions noted Course Vital Signs: Vital signs: Vital Signs Temperature 97.5 F L 12/16/20 16:28 Pulse Rate 90 12/16/20 22:17 Respiratory Rate 22 H 12/16/20 22:17 Blood Pressure 130/69 12/16/20 22:17 Pulse Oximetry 95 12/16/20 22:17 MDM - Weakness MDM Narrative: Medical decision making narrative: Rizwana presents here with chest pain is likely pleuritic in nature from her Covid. Her repeat troponin here showed no change. X-ray shows findings consistent with a Covid no other abnormalities. She has no signs of pulmonary embolism or aortic dissection. Patient's not requiring any increase in oxygen. She is stable for discharge follow-up with PCP and return if worsening. Lab Data: Labs: Lab Results 12/16/20 12/16/20 12/16/20 Range/Units 19:21 19:21 19:21 WBC 8.7 (4.0-10.0) 10^3/ uL RBC 4.37 (4.1-5.3) 10^6/u L Hgb 13.4 (11.5-15.3) g/dL Hct 39.0 (37.0-47.0) % MCV 89.2 (81-99) fL MCH 30.7 (28.0-34.0) pg MCHC 34.4 (30.0-36.0) g/dL RDW 13.1 (12.1-15.1) % Plt Count 199 (130-400) 10^3/c mm MPV 12.1 H (7.4-10.4) fL Neut % (Auto) 90.4 % Lymph % (Auto) 3.1 % [place] % (Auto) 5.2 % Eos % (Auto) 0.0 % Baso % (Auto) 0.1 % Neut # (Auto) 7.83 H (1.8-7.7) 10^3/u L Lymph # (Auto) 0.3 L (0.8-4.8) 10^3/u L [place] # (Auto) 0.5 (0.2-0.9) 10^3/u L Eos # (Auto) 0.0 (0.0-0.8) 10^3/u L Baso # (Auto) 0.0 (0.0-0.1) 10^3/u L Nucleated RBC % (a uto) 0 % Nucleated RBCs # 0.0 /100WBC Sodium 133 L (136-145) mmol/L Potassium 4.0 (3.5-5.1) mmol/L Chloride 92 L (98-107) mmol/L Carbon Dioxide 24 (22-29) mmol/L Anion Gap 21.0 H (5-19) BUN 48 H (6-20) mg/dL Creatinine 4.4 H (0.5-0.9) mg/dL GFR Calculation 10.4 L (90-130) mL/min Glucose 299 H (65-115) mg/dL POC Glucose (70-110) mg/dL Calculated Osmolal ity 300 H (285-295) mOsm/k g Calcium 9.5 (8.5-10.5) mg/dL Total Bilirubin 0.9 (0.15-1.2) mg/dL AST 20 (0-32) U/L ALT 26 (0-33) U/L Alkaline Phosphata se 124 H (35-105) IU/L Troponin T Baselin e 46 H (0-10) ng/L Troponin T 120 Min octavio (0-10) ng/L Delta Troponin T (0-10) ABS# NT-Pro-B Natriuret Pep 6189 H (0-125) pg/mL Total Protein 6.7 (6.6-8.7) g/dL Albumin 3.3 L (3.5-5.2) g/dL Globulin 3.4 (1.3-4.6) g/dL Lipase 21 (13-60) U/L Amorphous Sediment 12/16/20 12/16/20 12/16/20 Range/Units 20:53 21:32 21:33 WBC (4.0-10.0) 10^3/ uL RBC (4.1-5.3) 10^6/u L Hgb (11.5-15.3) g/dL Hct (37.0-47.0) % MCV (81-99) fL MCH (28.0-34.0) pg MCHC (30.0-36.0) g/dL RDW (12.1-15.1) % Plt Count (130-400) 10^3/c mm MPV (7.4-10.4) fL Neut % (Auto) % Lymph % (Auto) % [place] % (Auto) % Eos % (Auto) % Baso % (Auto) % Neut # (Auto) (1.8-7.7) 10^3/u L Lymph # (Auto) (0.8-4.8) 10^3/u L [place] # (Auto) (0.2-0.9) 10^3/u L Eos # (Auto) (0.0-0.8) 10^3/u L Baso # (Auto) (0.0-0.1) 10^3/u L Nucleated RBC % (a uto) % Nucleated RBCs # /100WBC Sodium (136-145) mmol/L Potassium (3.5-5.1) mmol/L Chloride (98-107) mmol/L Carbon Dioxide (22-29) mmol/L Anion Gap (5-19) BUN (6-20) mg/dL Creatinine (0.5-0.9) mg/dL GFR Calculation (90-130) mL/min Glucose (65-115) mg/dL POC Glucose 298 H (70-110) mg/dL Calculated Osmolal ity (285-295) mOsm/k g Calcium (8.5-10.5) mg/dL Total Bilirubin (0.15-1.2) mg/dL AST (0-32) U/L ALT (0-33) U/L Alkaline Phosphata se (35-105) IU/L Troponin T Baselin e (0-10) ng/L Troponin T 120 Min octavio 43.64 H (0-10) ng/L Delta Troponin T -2.36 L (0-10) ABS# NT-Pro-B Natriuret Pep (0-125) pg/mL Total Protein (6.6-8.7) g/dL Albumin (3.5-5.2) g/dL Globulin (1.3-4.6) g/dL Lipase (13-60) U/L Amorphous Sediment Not Reportable Imaging Data^: CXR: Attestation: I personally reviewed and interpreted this imaging study as follows: Radiologist's impression: [address] [address] XRay Report Signed Patient: Rizwana Herzog Unit #: [id number] : 1965 Age/Sex: 55 / F ADM Date: 12/16/20 Loc: ER Room/Bed: Attending Dr: Ordering Provider/Ordering MD: Zhou Art Date of Service: 12/16/20 Procedure(s): XR chest 1V portable [id number] Accession Number(s): [id number] Report Number: [id number] PROCEDURE INFORMATION: Exam: XR Chest Exam date and time: 12/16/2020 6:13 PM Age: 55 years old Clinical indication: Cough and shortness of breath; Additional info: Weakness, SOB, cough. Covid + TECHNIQUE: Imaging protocol: XR of the chest. Views: 1 view. COMPARISON: CR XR chest 1V portable [id number] 12/09/2020 6:19 AM FINDINGS: Tubes, catheters and devices: Right central line terminates within the distal SVC. Lungs: Nodular opacities at the peripheral left mid lung. Linear areas of scarring or atelectasis at the right midlung and left lung base. Pleural spaces: Unremarkable. No pleural effusion. No pneumothorax. Heart/Mediastinum: Unremarkable. No cardiomegaly. Bones/joints: Mild DJD of the thoracic spine. XR/XR chest 1V portable [id number] IMPRESSION: Nonspecific nodular opacities along the periphery of the left mid lung, new from most recent comparison. Otherwise, no interval change. Dictated By: Faheem Vincent DO Signed By: Faheem Vincent DO Signed Date/Time: 12/16/201917 EKG Data^: EKG 1: Attestation: I personally reviewed and interpreted this EKG as follows: EKG interpretation date: 12/16/20 EKG interpretation time: 18:29 Interpretation: sinus laura hr [address] or t wave abnormalities qrs 95 qtc 416 EKG 2: Attestation: I personally reviewed and interpreted this EKG as follows: EKG interpretation date: 12/16/20 EKG interpretation time: 20:12 Interpretation: sinus laura hr [address] or t wave abnormalities qrs 106 qtc 425 Discharge Plan Discharge Patient Disposition: Home Clinical Impression: End-stage renal disease on hemodialysis Chest pain Qualifiers: Chest pain type: unspecified Qualified Code(s): R07.9 - Chest pain, unspecified Condition: Stable Prescriptions: No Action nitroglycerin 0.4 mg tablet, sublingual 0.4 mg SUBLINGUAL Q5M PRN (Reason: Chest Pain) Qty: 25 RF: 6 clopidogrel 75 mg tablet 75 mg PO DAILY@08 Qty: 90 RF: 3 aspirin 81 mg Tablet,Chewable 81 mg PO DAILY@08 RF: 0 pantoprazole 40 mg tablet,delayed release (DR/EC) 40 mg PO DAILY@08 RF: 0 Rocklatan 0.02-0.005 % Drops 1 drp OPHTHALMIC (EYE) DAILY@20 RF: 0 sennosides-docusate sodium 8.6-50 mg tablet 2 tab PO BID PRN (Reason: Constipation) RF: 0 atorvastatin 40 mg Tablet 40 mg PO DAILY@20 RF: 0 cholecalciferol (vitamin D3) [Vitamin D3] 25 mcg (1,000 unit) Tablet 25 mcg PO DAILY@08 RF: 0 doxycycline hyclate 100 mg capsule 100 mg PO DAILY RF: 0 trazodone 50 mg tablet See Rx Instructions .ROUTE .COMPLEX RF: 0 Euthyrox 112 mcg tablet 224 mcg PO DAILY@0700 RF: 0 multivitamin [Multiple Vitamins] Tablet 1 tab PO DAILY@08 RF: 0 omega 9-vec-ckx-fish oil [Fish Oil] 300-1,000 mg Capsule,Delayed Release(Dr/Ec) 1 cap PO BID@08,20 RF: 0 brimonidine 0.2 % drops 1 drp ophthalmic (eye) BID@08,20 RF: 0 dorzolamide-timolol 22.3-6.8 mg/mL drops 1 drp ophthalmic (eye) BID@08,20 RF: 0 escitalopram oxalate [Lexapro] 10 mg tablet 10 mg PO DAILY@08 RF: 0 Lantus Solostar U-100 Insulin 100 unit/mL (3 mL) insulin pen 30 unit SUBCUT BID@08,20 Qty: 15 RF: 12 ondansetron 4 mg tablet,disintegrating 4 mg PO Q6H PRN (Reason: nausea and vomiting) Qty: 14 RF: 0 clonidine HCl 0.1 mg Tablet 0.1 mg PO BID Qty: 30 RF: 0 amlodipine 5 mg Tablet 5 mg PO DAILY Qty: 30 RF: 0 dexamethasone [Decadron] 6 mg tablet 6 mg PO Q24H Qty: 3 RF: 0 Discharge Orders: Discharge ED (Routine); Ordered 12/16/20 Ordered By: Carlos A Jeronimo Referrals: Yovany Leonardo MD [Primary Care Provider] - 1-3 days Discharge Diet: Advance as tolerated Discharge Activity: Resume usual activity Patient Instructions: Chest Pain (ED) Coding Level of Care Code ED [place] Administrator for Chg Fwd Exam Comprehensive
[2020-12-16 19:24] LABS: Basophils % 0.1 %; Hemoglobin 13.4 g/dL (11.5-15.3); Lymphocytes # 0.3 10^3/uL (0.8-4.8); Lymphocytes % 3.1 %; Mean Corpuscular HGB Conc 34.4 g/dL (30.0-36.0); Mean Corpuscular Hemoglobin 30.7 pg (28.0-34.0); Mean Corpuscular Volume 89.2 fL (81-99); Mean Platelet Volume 12.1 fL (7.4-10.4); Monocytes # 0.5 10^3/uL (0.2-0.9); Monocytes % 5.2 %; Neutrophils # 7.83 10^3/uL (1.8-7.7); Neutrophils % 90.4 %; Nucleated Red Blood Cells % 0 %; Platelet Count 199 10^3/cmm (130-400); Red Blood Count 4.37 10^6/uL (4.1-5.3); Red Cell Distribution Width 13.1 % (12.1-15.1); White Blood Count 8.7 10^3/uL (4.0-10.0)
[2020-12-16 19:43] VITALS: RESP 18; O2SAT 98
[2020-12-16] MEDS: morphine 4 mg/mL SDV 1 mL IVP (19:43)
[2020-12-16 19:44] LABS: Troponin(5th) Baseline 46 ng/L (0-10)
[2020-12-16] MEDS: ondansetron 2 mg/ML SDV 2 mL 4 MG IVP (19:44)
[2020-12-16 19:50] VITALS: BP 146/72; PULSE 57; RESP 18; O2SAT 98
[2020-12-16 20:00] LABS: Alanine Aminotransferase 26 U/L (0-33); Albumin Level 3.3 g/dL (3.5-5.2); Alkaline Phosphatase 124 IU/L (35-105); Aspartate Amino Transferase 20 U/L (0-32); Blood Urea Nitrogen 48 mg/dL (6-20); Calcium 9.5 mg/dL (8.5-10.5); Carbon Dioxide 24 mmol/L (22-29); Chloride 92 mmol/L (98-107); Globulin 3.4 g/dL (1.3-4.6); Glomerular Filtration Rate 10.4 mL/min (90-130); Glucose 299 mg/dL (65-115); Lipase 21 U/L (13-60); NT Pro B Type Natriuretic Pept 6189 pg/mL (0-125); Osmolality Calculated 300 mOsm/kg (285-295); Sodium 133 mmol/L (136-145); Total Bilirubin 0.9 mg/dL (0.15-1.2); Total Protein 6.7 g/dL (6.6-8.7)
--- NOTE | 2020-12-16 20:12 | ECG_ITS ---
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 Measurements Intervals [place] Rate: 54 P: CA: QRS: -63 QRSD: 106 T: 35 QT: 439 QTc: 418 Interpretive Statements SUPRAVENTRICULAR BRADYCARDIA LEFT ANTERIOR FASCICULAR BLOCK [QRS AXIS <= -45, QR IN I, RS IN II] POSSIBLE ANTERIOR MYOCARDIAL INFARCTION [30 ms Q WAVE IN V3/V4, OR R < 0.2 mV IN V4], OF INDETERMINATE AGE Compared to ECG 12/08/2020 00:48:36 Left anterior fascicular block now present Supraventricular rhythm no longer present Right-axis deviation no longer present Myocardial infarct finding still present Electronically Signed On 12-18-2020 0:34:18 CDT by Gerald Smith M.D. [id number]
[2020-12-16 21:35] LABS: Glucose Point of Care 298 mg/dL (70-110)
[2020-12-16 21:54] VITALS: BP 123/60; PULSE 55; RESP 16; O2SAT 95
[2020-12-16 22:00] LABS: Troponin 5 2HR 43.64 ng/L (0-10)
[2020-12-16] MEDS: insulin regular-human 100 units/1 mL 5 UNIT IVP (22:08)
[2020-12-16 22:16] LABS: Troponin 5 2HR Delta -2.36 ABS# (0-10)
[2020-12-16 22:17] VITALS: BP 130/69; PULSE 90; RESP 22; O2SAT 95
[2020-12-16 22:24] LABS: Bilirubin Urine Neg (Negative); Blood Urine 2+ (Negative); Glucose Urine UA 4+ (Normal); Ketones Urine Negative (Negative); Leukocyte Esterase Urine Negative (Negative); Nitrate Urine Negative (Negative); Protein Urine 3+ (Negative); Urine Appearance Cloudy (CLEAR); Urine Color Yellow (Yellow); Urobilinogen Urine Norm (Negative); pH Urine 5 (5-7)
[2020-12-16 22:25] LABS: Add Urine Culture? No; Bacteria Urine 1+ /hpf; RBC Urine 0-4 /hpf (0-2); Squamous Epithelial Cell Urine 25-40 /hpf (0-5)
== END 2020-12-16 23:48 | disposition home or self-care (01) ==
PROVIDERS: Physician Assistant; Emergency Provider Emergency Medicine; PCP Internal Medicine
DX: R07.9 Chest pain, unspecified (principal); I13.2 Hypertensive heart and chronic kidney disease with heart failure and with stage 5 chronic kidney disease, or end stage renal disease; E11.22 Type 2 diabetes mellitus with diabetic chronic kidney disease; N18.6 End stage renal disease; I50.32 Chronic diastolic (congestive) heart failure; Z99.2 Dependence on renal dialysis; I25.10 Atherosclerotic heart disease of native coronary artery without angina pectoris; E78.5 Hyperlipidemia, unspecified; Z86.73 Personal history of transient ischemic attack (TIA), and cerebral infarction without residual deficits; Z89.511 Acquired absence of right leg below knee
CPT/HCPCS: 36416; 71045; 80053; 81001; 82962; 83690; 83880; 84484; 85025; 93005; 96374; 96375; 99284; J1815; J2270; J2405

== ENCOUNTER 2020-12-21 09:55 | Emergency (ER) | payer MEDICARE, MEDICAID, SELFPAY ==
[2020-12-21] VITALS (7 sets, daily range): BP systolic 129–180; BP diastolic 72–91; PULSE 49–64; RESP 14–18; TEMP 36.4; O2SAT 95–100; BMI 32.9
--- NOTE | 2020-12-21 10:24 | PC.NURSE ---
PATIENT ARRIVED TO ROOM AT 1025.
--- NOTE | 2020-12-21 10:52 | PC.NURSE ---
NOTIFIED DR PERSAUD OF FSBS AND INABILITY TO GET IV ACCESS ESTABLISHED.
--- NOTE | 2020-12-21 11:11 | XRR_ITS ---
PROCEDURE INFORMATION: Exam: XR Chest Exam date and time: 12/21/2020 11:11 AM Age: 55 years old Clinical indication: Cough and dyspnea; Additional info: Dyspnea/cough TECHNIQUE: Imaging protocol: XR of the chest. Views: 1 view. COMPARISON: CR (CHEST, ) 12/16/2020 6:15 PM FINDINGS: Tubes, catheters and devices: There is a right IJ catheter whose tip is in the superior vena cava. Lungs: The lung volumes are low. No significant lung consolidation. Pleural spaces: Unremarkable. No pleural effusion. No pneumothorax. Heart/Mediastinum: Cardiomegaly is identified. Bones/joints: Unremarkable. XR/XR chest 1V portable [id number] IMPRESSION: There are no acute concerning abnormalities.
--- NOTE | 2020-12-21 11:11 | ECG_ITS ---
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 Measurements Intervals [place] Rate: 50 P: 98 IN: 190 QRS: -51 QRSD: 89 T: 55 QT: 452 QTc: 415 Interpretive Statements SINUS BRADYCARDIA MARKED LEFT AXIS DEVIATION [QRS AXIS < -30] POSSIBLE ANTERIOR MYOCARDIAL INFARCTION [30 ms Q WAVE IN V3/V4, OR R < 0.2 mV IN V4], PROBABLY OLD Possible old inferior wall ME Compared to ECG 12/16/2020 20:12:18 Left-axis deviation now present Left anterior fascicular block no longer present Myocardial infarct finding still present Electronically Signed On 12-21-2020 19:31:14 CDT by Gerald Smith M.D. [id number]
--- NOTE | 2020-12-21 11:17 | W.ED.AMS ---
HPI - Altered Mental Status General: Chief Complaint: Altered Mental Status Stated Complaint: SOB, N/ Unresponsive Time Seen by Provider: 12/21/20 10:36 History of Present Illness: HPI narrative: 55-year-old female [facility] emergency room via EMS. Patient had Covid about 2 weeks ago she is seems a little altered this morning somewhat short of breath she is disoriented is difficult to get her to follow and answer questions and was here today she did take her insulin last night she was hypoglycemic on arrival here. She is very disoriented initially and even not to the point of being uncooperative did improve over time as her blood sugar improved. She had one episode of vomiting no hematemesis or coffee-ground emesis she denies any chest pain. MD complaint: confusion, decreased responsiveness and weakness Onset (ago): hour(s) Timing confirmed by: spouse Severity: moderate Consistency of symptoms: Waxing and Waning Context: history of similar presentation and diabetes Review of Systems Const: Denies: fever(s), chills, body aches, change in appetite, fatigue or malaise ENMT: Denies: throat pain, ear or mastoid pain, nasal discharge or nasal congestion Card: Denies: chest pain, edema, dyspnea on exertion or orthopnea Resp: Denies: dyspnea, productive cough or non-productive cough GI: Reports: nausea and vomiting; Denies: abdominal pain, hematemesis, coffee ground emesis, diarrhea, constipation, bloating, hematochezia or melena : Denies: flank pain, difficulty voiding, dysuria, urinary frequency or urinary urgency Skin/Breast: Denies: rash or pruritus PFSH ED PFSH: Medical History Anxiety BPPV (benign paroxysmal positional vertigo) CAD (coronary artery disease) Carotid stenosis Chronic diastolic CHF (congestive heart failure) Chronic left sacroiliac joint pain Claustrophobia Diabetes mellitus Diverticulitis Elevated troponin End stage kidney disease End stage renal disease ESBL (extended spectrum beta-lactamase) producing bacteria infection DAILY (generalized anxiety disorder) Gastroparesis GERD (gastroesophageal reflux disease) Gram-negative bacteremia HTN (hypertension) Hyperlipidemia Hypothyroidism Major depression, recurrent DOROTEO on CPAP Partial nontraumatic amputation of left foot (~06/2019) Peripheral vascular disease Peritonitis associated with peritoneal dialysis Phantom pain Suicidal ideation TIA (transient ischemic attack) Vitamin D deficiency Surgical History AV (arteriovenous fistula) (~10/2020) H/O hysterectomy with oophorectomy History of appendectomy History of heart artery stent (~2018) LAD, done in [place], [place] History of hysterectomy History of left heart catheterization History of right below knee amputation Peritoneal dialysis catheter in place Removed due to recurrent peritonitis S/P cholecystectomy S/P PICC central line placement (~2019) Status post amputation of toe Family History Denies family history of CAD (coronary artery disease) Clotting disorder Dementia Bleeding disorder Social History Smoking and tobacco status: never smoked Alcohol intake: never Household members: spouse and family History of recent travel: No Physical Exam Const: COMMON NORMALS: no acute distress GENERAL APPEARANCE: cooperative and comfortable ORIENTATION/CONSCIOUSNESS: Yes oriented to person, Yes oriented to place and Yes oriented to time HENMT: COMMON NORMALS: normocephalic, atraumatic, hearing grossly normal bilaterally, TM's normal bilaterally and Normal nasal mucous membranes and turbinates present HEAD & SCALP: normocephalic and atraumatic NOSE: Normal nasal mucous membranes and turbinates present TYMPANIC MEMBRANE: TM's normal bilaterally Eye: COMMON NORMALS: Equal, round and reactive pupils present, EOMs intact bilaterally, conjunctivae normal and no scleral icterus CONJUNCTIVA: Yes conjunctivae normal PUPIL: Yes Equal, round and reactive pupils present Neck/C-Spine: COMMON NORMALS: no JVD Lymph: LYMPHATIC: no lymphadenopathy noted and no lymphedema noted Resp: COMMON NORMALS: normal respiratory effort, No retractions, No use of accessory muscles and clear to auscultation bilaterally AUSCULTATION: clear to auscultation bilaterally Cardio: COMMON NORMALS: no JVD, regular rate, regular rhythm and No murmurs present (Cardio) RATE: regular rate RHYTHM: regular rhythm GI: COMMON NORMALS: Soft to palpation and No hepatosplenomegaly present AUSCULTATION: Yes normoactive bowel sounds PALPATION: Yes Soft to palpation, No Tenderness to palpation present (GI), No Guarding due to palpation present (GI) and Yes No hepatosplenomegaly present Extremity: COMMON NORMALS: normal to inspection, capillary refill normal, no clubbing, cyanosis or edema, no calf tenderness and no pedal edema NARRATIVE EXTREMITY EXAM: Previous left lower leg amputation GENERAL: Yes amputation Neuro: SENSORIUM/ORIENTATION: Yes oriented to person, Yes oriented to place and Yes oriented to time Skin: COMMON NORMALS: no rashes or lesions noted GENERAL SKIN EXAM: no rashes or lesions noted Course Vital Signs: Vital signs: Vital Signs Temperature 97.5 F L 12/21/20 10:14 Pulse Rate 64 12/21/20 16:00 Respiratory Rate 15 12/21/20 16:00 Blood Pressure 129/79 12/21/20 16:00 Pulse Oximetry 99 12/21/20 16:00 MDM - Altered Mental Status MDM Narrative: Medical decision making narrative: Patient monitored in the emergency room she had several episodes of hypoglycemia which she responded well to IV glucose supplementation as well as eating she did have one episode of vomiting. Patient recently had Covid but has no respiratory symptoms reviewed labs and other imaging findings with the patient after hydration and glucose support in the ED patient improved well enough to be able to go home she is awake and alert. Reviewed blood sugar monitoring and maintenance with her will discharge home with iMcheal continue her other medications return if has problems. Lab Data: Labs: Lab Results 12/21/20 12/21/20 12/21/20 Range/Units 10:28 11:23 12:47 WBC 9.3 (4.0-10.0) 10^3/ uL RBC 4.34 (4.1-5.3) 10^6/u L Hgb 13.5 (11.5-15.3) g/dL Hct 39.9 (37.0-47.0) % MCV 91.9 (81-99) fL MCH 31.1 (28.0-34.0) pg MCHC 33.8 (30.0-36.0) g/dL RDW 13.7 (12.1-15.1) % Plt Count 182 (130-400) 10^3/c mm MPV 12.4 H (7.4-10.4) fL Neut % (Auto) 85.1 % Lymph % (Auto) 5.5 % [place] % (Auto) 6.9 % Eos % (Auto) 1.3 % Baso % (Auto) 0.1 % Neut # (Auto) 7.92 H (1.8-7.7) 10^3/u L Lymph # (Auto) 0.5 L (0.8-4.8) 10^3/u L [place] # (Auto) 0.6 (0.2-0.9) 10^3/u L Eos # (Auto) 0.1 (0.0-0.8) 10^3/u L Baso # (Auto) 0.0 (0.0-0.1) 10^3/u L Nucleated RBC % (a uto) 0 % Nucleated RBCs # 0.0 /100WBC Specimen Type Sample Site ABG pH (7.35-7.45) ABG pCO2 (35-45) mmHg ABG pO2 (80.0-100.0) mmH g ABG HCO3 (22-26) mmol/L ABG O2 Saturation ABG Base Excess (-2.0-2.0) mmol/ L Jason Test A-a O2 Gradient (5-10) mmHg Hematocrit (37-47) % Hgb O2 Saturation (95-100) % Carboxyhemoglobin (0.4-20.1) %THgb Methemoglobin (0.4-1.5) % Total Hemoglobin (12-16) g/dL Ionized Calcium (1.1-1.4) mmol/L O2 Delivery Device O2 Liters/Min % FiO2 % Fountain Worker ID Sodium (136-145) mmol/L Potassium (3.5-5.1) mmol/L Chloride (98-107) mmol/L Carbon Dioxide (22-29) mmol/L Anion Gap (5-19) BUN (6-20) mg/dL Creatinine (0.5-0.9) mg/dL GFR Calculation (90-130) mL/min Glucose (65-115) mg/dL POC Glucose 51 L 52 L (70-110) mg/dL Calculated Osmolal ity (285-295) mOsm/k g Lactic Acid (0.5-2.2) mmol/L Calcium (8.5-10.5) mg/dL Total Bilirubin (0.15-1.2) mg/dL AST (0-32) U/L ALT (0-33) U/L Alkaline Phosphata se (35-105) IU/L Troponin T Baselin e (0-10) ng/L NT-Pro-B Natriuret Pep (0-125) pg/mL Total Protein (6.6-8.7) g/dL Albumin (3.5-5.2) g/dL Globulin (1.3-4.6) g/dL Urine Color (Yellow) Urine Appearance (CLEAR) Urine pH (5-7) Ur Specific Gravit y (1.005-1.030) Urine Protein (Negative) Urine Glucose (UA) (Normal) Urine Ketones (Negative) Urine Blood (Negative) Urine Nitrate (Negative) Urine Bilirubin (Negative) Prot Sulfosalicyli c Acd (Negative) Urine Urobilinogen (Negative) mg/dL Ur Leukocyte Yara ase (Negative) Urine RBC (0-2) /hpf Urine WBC (0-5) /hpf Ur Squamous Epith Cells (0-5) /hpf Amorphous Sediment Urine Bacteria (NONE) /hpf 12/21/20 12/21/20 12/21/20 Range/Units 12:47 13:46 15:05 WBC (4.0-10.0) 10^3/ uL RBC (4.1-5.3) 10^6/u L Hgb (11.5-15.3) g/dL Hct (37.0-47.0) % MCV (81-99) fL MCH (28.0-34.0) pg MCHC (30.0-36.0) g/dL RDW (12.1-15.1) % Plt Count (130-400) 10^3/c mm MPV (7.4-10.4) fL Neut % (Auto) % Lymph % (Auto) % [place] % (Auto) % Eos % (Auto) % Baso % (Auto) % Neut # (Auto) (1.8-7.7) 10^3/u L Lymph # (Auto) (0.8-4.8) 10^3/u L [place] # (Auto) (0.2-0.9) 10^3/u L Eos # (Auto) (0.0-0.8) 10^3/u L Baso # (Auto) (0.0-0.1) 10^3/u L Nucleated RBC % (a uto) % Nucleated RBCs # /100WBC Specimen Type Sample Site ABG pH (7.35-7.45) ABG pCO2 (35-45) mmHg ABG pO2 (80.0-100.0) mmH g ABG HCO3 (22-26) mmol/L ABG O2 Saturation ABG Base Excess (-2.0-2.0) mmol/ L Jason Test A-a O2 Gradient (5-10) mmHg Hematocrit (37-47) % Hgb O2 Saturation (95-100) % Carboxyhemoglobin (0.4-20.1) %THgb Methemoglobin (0.4-1.5) % Total Hemoglobin (12-16) g/dL Ionized Calcium (1.1-1.4) mmol/L O2 Delivery Device O2 Liters/Min % FiO2 % Fountain Worker ID Sodium 138 (136-145) mmol/L Potassium 3.4 L (3.5-5.1) mmol/L Chloride 97 L (98-107) mmol/L Carbon Dioxide 31 H (22-29) mmol/L Anion Gap 13.4 (5-19) BUN 44 H (6-20) mg/dL Creatinine 4.7 H (0.5-0.9) mg/dL GFR Calculation 9.6 L (90-130) mL/min Glucose 59 L (65-115) mg/dL POC Glucose 142 H (70-110) mg/dL Calculated Osmolal ity 295 (285-295) mOsm/k g Lactic Acid (0.5-2.2) mmol/L Calcium 8.8 (8.5-10.5) mg/dL Total Bilirubin 0.8 (0.15-1.2) mg/dL AST 22 (0-32) U/L ALT 32 (0-33) U/L Alkaline Phosphata se 123 H (35-105) IU/L Troponin T Baselin e 57 H (0-10) ng/L NT-Pro-B Natriuret Pep (0-125) pg/mL Total Protein 5.7 L (6.6-8.7) g/dL Albumin 3.0 L (3.5-5.2) g/dL Globulin 2.7 (1.3-4.6) g/dL Urine Color (Yellow) Urine Appearance (CLEAR) Urine pH (5-7) Ur Specific Gravit y (1.005-1.030) Urine Protein (Negative) Urine Glucose (UA) (Normal) Urine Ketones (Negative) Urine Blood (Negative) Urine Nitrate (Negative) Urine Bilirubin (Negative) Prot Sulfosalicyli c Acd (Negative) Urine Urobilinogen (Negative) mg/dL Ur Leukocyte Yara ase (Negative) Urine RBC (0-2) /hpf Urine WBC (0-5) /hpf Ur Squamous Epith Cells (0-5) /hpf Amorphous Sediment Urine Bacteria (NONE) /hpf 12/21/20 12/21/20 12/21/20 Range/Units 15:05 15:05 15:28 WBC (4.0-10.0) 10^3/ uL RBC (4.1-5.3) 10^6/u L Hgb (11.5-15.3) g/dL Hct (37.0-47.0) % MCV (81-99) fL MCH (28.0-34.0) pg MCHC (30.0-36.0) g/dL RDW (12.1-15.1) % Plt Count (130-400) 10^3/c mm MPV (7.4-10.4) fL Neut % (Auto) % Lymph % (Auto) % [place] % (Auto) % Eos % (Auto) % Baso % (Auto) % Neut # (Auto) (1.8-7.7) 10^3/u L Lymph # (Auto) (0.8-4.8) 10^3/u L [place] # (Auto) (0.2-0.9) 10^3/u L Eos # (Auto) (0.0-0.8) 10^3/u L Baso # (Auto) (0.0-0.1) 10^3/u L Nucleated RBC % (a uto) % Nucleated RBCs # /100WBC Specimen Type Arterial Sample Site Radial, right ABG pH 7.49 H (7.35-7.45) ABG pCO2 38.5 (35-45) mmHg ABG pO2 95.9 (80.0-100.0) mmH g ABG HCO3 29.3 H (22-26) mmol/L ABG O2 Saturation 96.9 ABG Base Excess 5.6 H (-2.0-2.0) mmol/ L Jason Test Pos A-a O2 Gradient 7.2 (5-10) mmHg Hematocrit 44.1 (37-47) % Hgb O2 Saturation 95.8 (95-100) % Carboxyhemoglobin 0.4 (0.4-20.1) %THgb Methemoglobin 0.7 (0.4-1.5) % Total Hemoglobin 14.4 (12-16) g/dL Ionized Calcium 1.2 (1.1-1.4) mmol/L O2 Delivery Device Nc O2 Liters/Min 2.0 % FiO2 28.0 % Fountain Worker ID Cak Sodium 138.0 (136-145) mmol/L Potassium 3.4 L (3.5-5.1) mmol/L Chloride (98-107) mmol/L Carbon Dioxide (22-29) mmol/L Anion Gap (5-19) BUN (6-20) mg/dL Creatinine (0.5-0.9) mg/dL GFR Calculation (90-130) mL/min Glucose 101.0 (65-115) mg/dL POC Glucose (70-110) mg/dL Calculated Osmolal ity (285-295) mOsm/k g Lactic Acid 0.8 (0.5-2.2) mmol/L Calcium (8.5-10.5) mg/dL Total Bilirubin (0.15-1.2) mg/dL AST (0-32) U/L ALT (0-33) U/L Alkaline Phosphata se (35-105) IU/L Troponin T Baselin e (0-10) ng/L NT-Pro-B Natriuret Pep 3080 H (0-125) pg/mL Total Protein (6.6-8.7) g/dL Albumin (3.5-5.2) g/dL Globulin (1.3-4.6) g/dL Urine Color (Yellow) Urine Appearance (CLEAR) Urine pH (5-7) Ur Specific Gravit y (1.005-1.030) Urine Protein (Negative) Urine Glucose (UA) (Normal) Urine Ketones (Negative) Urine Blood (Negative) Urine Nitrate (Negative) Urine Bilirubin (Negative) Prot Sulfosalicyli c Acd (Negative) Urine Urobilinogen (Negative) mg/dL Ur Leukocyte Yara ase (Negative) Urine RBC (0-2) /hpf Urine WBC (0-5) /hpf Ur Squamous Epith Cells (0-5) /hpf Amorphous Sediment Urine Bacteria (NONE) /hpf 12/21/20 12/21/20 Range/Units 15:46 16:36 WBC (4.0-10.0) 10^3/ uL RBC (4.1-5.3) 10^6/u L Hgb (11.5-15.3) g/dL Hct (37.0-47.0) % MCV (81-99) fL MCH (28.0-34.0) pg MCHC (30.0-36.0) g/dL RDW (12.1-15.1) % Plt Count (130-400) 10^3/c mm MPV (7.4-10.4) fL Neut % (Auto) % Lymph % (Auto) % [place] % (Auto) % Eos % (Auto) % Baso % (Auto) % Neut # (Auto) (1.8-7.7) 10^3/u L Lymph # (Auto) (0.8-4.8) 10^3/u L [place] # (Auto) (0.2-0.9) 10^3/u L Eos # (Auto) (0.0-0.8) 10^3/u L Baso # (Auto) (0.0-0.1) 10^3/u L Nucleated RBC % (a uto) % Nucleated RBCs # /100WBC Specimen Type Sample Site ABG pH (7.35-7.45) ABG pCO2 (35-45) mmHg ABG pO2 (80.0-100.0) mmH g ABG HCO3 (22-26) mmol/L ABG O2 Saturation ABG Base Excess (-2.0-2.0) mmol/ L Jason Test A-a O2 Gradient (5-10) mmHg Hematocrit (37-47) % Hgb O2 Saturation (95-100) % Carboxyhemoglobin (0.4-20.1) %THgb Methemoglobin (0.4-1.5) % Total Hemoglobin (12-16) g/dL Ionized Calcium (1.1-1.4) mmol/L O2 Delivery Device O2 Liters/Min % FiO2 % Fountain Worker ID Sodium (136-145) mmol/L Potassium (3.5-5.1) mmol/L Chloride (98-107) mmol/L Carbon Dioxide (22-29) mmol/L Anion Gap (5-19) BUN (6-20) mg/dL Creatinine (0.5-0.9) mg/dL GFR Calculation (90-130) mL/min Glucose (65-115) mg/dL POC Glucose 108 (70-110) mg/dL Calculated Osmolal ity (285-295) mOsm/k g Lactic Acid (0.5-2.2) mmol/L Calcium (8.5-10.5) mg/dL Total Bilirubin (0.15-1.2) mg/dL AST (0-32) U/L ALT (0-33) U/L Alkaline Phosphata se (35-105) IU/L Troponin T Baselin e (0-10) ng/L NT-Pro-B Natriuret Pep (0-125) pg/mL Total Protein (6.6-8.7) g/dL Albumin (3.5-5.2) g/dL Globulin (1.3-4.6) g/dL Urine Color Yellow (Yellow) Urine Appearance Clear (CLEAR) Urine pH 8 H (5-7) Ur Specific Gravit y 1.010 (1.005-1.030) Urine Protein 3+ H (Negative) Urine Glucose (UA) 2+ (Normal) Urine Ketones Negative (Negative) Urine Blood Neg (Negative) Urine Nitrate Negative (Negative) Urine Bilirubin Neg (Negative) Prot Sulfosalicyli c Acd Positive (Negative) Urine Urobilinogen Norm (Negative) mg/dL Ur Leukocyte Yara ase Negative (Negative) Urine RBC None (0-2) /hpf Urine WBC 5-10 H (0-5) /hpf Ur Squamous Epith Cells 10-15 H (0-5) /hpf Amorphous Sediment Not Reportable Urine Bacteria 1+ H (NONE) /hpf Discharge Plan Discharge Patient Disposition: Home Clinical Impression: Diabetes mellitus, Hypoglycemia Condition: Stable Prescriptions: New Zofran 4 mg tablet 4 mg PO Q6H PRN (Reason: nausea and vomiting) Qty: 15 RF: 0 No Action nitroglycerin 0.4 mg tablet, sublingual 0.4 mg SUBLINGUAL Q5M PRN (Reason: Chest Pain) Qty: 25 RF: 6 clopidogrel 75 mg tablet 75 mg PO DAILY@08 Qty: 90 RF: 3 aspirin 81 mg Tablet,Chewable 81 mg PO DAILY@08 RF: 0 pantoprazole 40 mg tablet,delayed release (DR/EC) 40 mg PO DAILY@08 RF: 0 Rocklatan 0.02-0.005 % Drops 1 drp OPHTHALMIC (EYE) DAILY@20 RF: 0 sennosides-docusate sodium 8.6-50 mg tablet 2 tab PO BID PRN (Reason: Constipation) RF: 0 atorvastatin 40 mg Tablet 40 mg PO DAILY@20 RF: 0 cholecalciferol (vitamin D3) [Vitamin D3] 25 mcg (1,000 unit) Tablet 25 mcg PO DAILY@08 RF: 0 trazodone 50 mg tablet See Rx Instructions .ROUTE .COMPLEX RF: 0 Euthyrox 150 mcg tablet 150 mcg PO DAILY RF: 0 Symbicort 160-4.5 mcg/actuation HFA aerosol inhaler 2 puff INHALATION DAILY RF: 0 multivitamin [Multiple Vitamins] Tablet 1 tab PO DAILY@08 RF: 0 omega 6-njh-uxc-fish oil [Fish Oil] 300-1,000 mg Capsule,Delayed Release(Dr/Ec) 1 cap PO BID@08,20 RF: 0 brimonidine 0.2 % drops 1 drp ophthalmic (eye) BID@08,20 RF: 0 dorzolamide-timolol 22.3-6.8 mg/mL drops 1 drp ophthalmic (eye) BID@08,20 RF: 0 escitalopram oxalate [Lexapro] 10 mg tablet 10 mg PO DAILY@08 RF: 0 Lantus Solostar U-100 Insulin 100 unit/mL (3 mL) insulin pen 30 unit SUBCUT BID@08,20 Qty: 15 RF: 12 ondansetron 4 mg tablet,disintegrating 4 mg PO Q6H PRN (Reason: nausea and vomiting) Qty: 14 RF: 0 clonidine HCl 0.1 mg Tablet 0.1 mg PO BID Qty: 30 RF: 0 amlodipine 5 mg Tablet 5 mg PO DAILY Qty: 30 RF: 0 dexamethasone [Decadron] 6 mg tablet 6 mg PO Q24H Qty: 3 RF: 0 Discharge Orders: Discharge ED (Routine); Ordered 12/21/20 Ordered By: Karan Daniels Referrals: Yovany Leonardo MD [Primary Care Provider] - Patient Instructions: Opioid Safety Coding Level of Care Code ED Termite Control Representative for Maris Braden
--- NOTE | 2020-12-21 12:05 | PC.NURSE ---
unable to obtain iv access attempted by 2 different nurses; Dr. Daniels notified.
--- NOTE | 2020-12-21 12:40 | PC.NURSE ---
per Dr. Daniels use pt's HD catheter for blood draws and IV access for medication administration.
[2020-12-21] MEDS: dextrose 50% syringe 50 mL IVP (12:41)
[2020-12-21] MEDS: promethazine 25 mg/mL SDV 1 mL IM (13:03)
[2020-12-21 13:06] LABS: Basophils % 0.1 %; Eosinophils # 0.1 10^3/uL (0.0-0.8); Eosinophils % 1.3 %; Hematocrit 39.9 % (37.0-47.0); Hemoglobin 13.5 g/dL (11.5-15.3); Lymphocytes # 0.5 10^3/uL (0.8-4.8); Lymphocytes % 5.5 %; Mean Corpuscular HGB Conc 33.8 g/dL (30.0-36.0); Mean Corpuscular Hemoglobin 31.1 pg (28.0-34.0); Mean Corpuscular Volume 91.9 fL (81-99); Mean Platelet Volume 12.4 fL (7.4-10.4); Monocytes # 0.6 10^3/uL (0.2-0.9); Monocytes % 6.9 %; Neutrophils # 7.92 10^3/uL (1.8-7.7); Neutrophils % 85.1 %; Nucleated Red Blood Cells % 0 %; Platelet Count 182 10^3/cmm (130-400); Red Blood Count 4.34 10^6/uL (4.1-5.3); Red Cell Distribution Width 13.7 % (12.1-15.1); White Blood Count 9.3 10^3/uL (4.0-10.0)
[2020-12-21 13:21] LABS: Alanine Aminotransferase 32 U/L (0-33); Alkaline Phosphatase 123 IU/L (35-105); Anion Gap 13.4 (5-19); Aspartate Amino Transferase 22 U/L (0-32); Blood Urea Nitrogen 44 mg/dL (6-20); Calcium 8.8 mg/dL (8.5-10.5); Carbon Dioxide 31 mmol/L (22-29); Chloride 97 mmol/L (98-107); Globulin 2.7 g/dL (1.3-4.6); Glomerular Filtration Rate 9.6 mL/min (90-130); Glucose 59 mg/dL (65-115); Osmolality Calculated 295 mOsm/kg (285-295); Potassium 3.4 mmol/L (3.5-5.1); Sodium 138 mmol/L (136-145); Total Bilirubin 0.8 mg/dL (0.15-1.2); Total Protein 5.7 g/dL (6.6-8.7)
--- NOTE | 2020-12-21 14:37 | ECG_ITS ---
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 Measurements Intervals [place] Rate: 59 P: 113 GA: 193 QRS: -58 QRSD: 93 T: 31 QT: 404 QTc: 400 Interpretive Statements SINUS BRADYCARDIA POSSIBLE ANTERIOR MYOCARDIAL INFARCTION [30 ms Q WAVE IN V3/V4, OR R < 0.2 mV IN V4], PROBABLY OLD INFERIOR MYOCARDIAL INFARCTION [40+ ms Q WAVE AND/OR ST/T ABNORMALITY IN II/aVF], PROBABLY OLD Compared to ECG 12/16/2020 20:12:18 Left anterior fascicular block no longer present Myocardial infarct finding still present Electronically Signed On 12-21-2020 19:32:30 CDT by Gerald Smith M.D. [id number]
[2020-12-21] MEDS: levofloxacin-dextrose 5 % 750 MG/150 ML PREMIX 100 MG IV (15:31)
[2020-12-21 15:34] LABS: Lactic Sepsis W/Reflex 0.8 mmol/L (0.5-2.2); Troponin(5th) Baseline 57 ng/L (0-10)
[2020-12-21 15:40] LABS: ABG PCO2 38.5 mmHg (35-45); ABG PH Result 7.49 (7.35-7.45); Alveolar-Arterial Oxygen Gradi 7.2 mmHg (5-10); Arterial Blood Gas Hematocrit 44.1 % (37-47); Base Excess ABG 5.6 mmol/L (-2.0-2.0); Blood Gas Allen Test Pos; Blood Gas Operator Identificat CAK; Blood Gas Sample Site Radial, right; Blood Gas Sample Type Arterial; Carboxyhemoglobin 0.4 %THgb (0.4-20.1); HCO3 ABG 29.3 mmol/L (22-26); HGB O2 Sat 95.8 % (95-100); Ionized Calcium Level - ABG 1.2 mmol/L (1.1-1.4); Methemoglobin 0.7 % (0.4-1.5); Oxygen Device NC; Oxygen Saturation ABG 96.9; PO2 ABG 95.9 mmHg (80.0-100.0); Potassium Level - ABG 3.4 mmol/L (3.5-5.0); Total Hemoglobin 14.4 g/dL (12-16)
[2020-12-21 15:43] LABS: NT Pro B Type Natriuretic Pept 3080 pg/mL (0-125)
--- NOTE | 2020-12-21 16:37 | ECG_ITS ---
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 Measurements Intervals [place] Rate: 63 P: 122 FL: 188 QRS: -57 QRSD: 86 T: 41 QT: 412 QTc: 424 Interpretive Statements SINUS RHYTHM INFERIOR MYOCARDIAL INFARCTION [40+ ms Q WAVE AND/OR ST/T ABNORMALITY IN II/aVF], PROBABLY OLD ANTEROLATERAL MYOCARDIAL INFARCTION [40+ ms Q WAVE IN I/aVL/V3-V6], OF INDETERMINATE AGE Compared to ECG 12/21/2020 15:18:13 Sinus bradycardia no longer present Myocardial infarct finding still present Electronically Signed On 12-21-2020 19:37:10 CDT by Gerald Smith M.D. [id number]
[2020-12-21 17:11] LABS: Glucose Urine UA 2+ (Normal); Protein Urine 3+ (Negative); Urine Appearance Clear (CLEAR); Urine Color Yellow (Yellow); pH Urine 8 (5-7)
[2020-12-21 17:12] LABS: Add Urine Culture? No; Add Urine Microscopic? YES; Bacteria Urine 1+ /hpf; Bilirubin Urine Neg (Negative); Blood Urine Neg (Negative); Ketones Urine Negative (Negative); Leukocyte Esterase Urine Negative (Negative); Nitrate Urine Negative (Negative); Sulfosalicylic Acid Urine Positive (Negative); Urobilinogen Urine Norm (Negative)
[2020-12-23 07:14] LABS: Glucose Point of Care 51 mg/dL (70-110)
[2020-12-23 07:14] LABS: Glucose Point of Care 52 mg/dL (70-110)
[2020-12-23 07:18] LABS: Glucose Point of Care 142 mg/dL (70-110)
[2020-12-23 07:19] LABS: Glucose Point of Care 108 mg/dL (70-110)
== END 2020-12-21 17:09 | disposition home or self-care (01) ==
PROVIDERS: Emergency Provider Family Medicine; PCP Internal Medicine
DX: E11.649 Type 2 diabetes mellitus with hypoglycemia without coma (principal); Z79.02 Long term (current) use of antithrombotics/antiplatelets; Z79.82 Long term (current) use of aspirin; Z79.4 Long term (current) use of insulin; I25.10 Atherosclerotic heart disease of native coronary artery without angina pectoris; I11.0 Hypertensive heart disease with heart failure; I13.2 Hypertensive heart and chronic kidney disease with heart failure and with stage 5 chronic kidney disease, or end stage renal disease; E11.22 Type 2 diabetes mellitus with diabetic chronic kidney disease; N18.6 End stage renal disease; E78.5 Hyperlipidemia, unspecified; Z86.73 Personal history of transient ischemic attack (TIA), and cerebral infarction without residual deficits; Z89.511 Acquired absence of right leg below knee
CPT/HCPCS: 36416; 36600; 71045; 80051; 80053; 81001; 82330; 82805; 82962; 83605; 83880; 84484; 85025; 87040; 87205; 93005; 96365; 96372; 96375; 96376; 99284; J1642; J1956; J2550

== ENCOUNTER → 2021-01-28 12:05 | Outpatient (BNVA) | payer MEDICARE, MEDICAID, SELFPAY | PROVIDERS: PCP Internal Medicine; Visit Provider Internal Medicine | DX: E11.9 Type 2 diabetes mellitus without complications (principal); E03.9 Hypothyroidism, unspecified; I10 Essential (primary) hypertension; I25.10 Atherosclerotic heart disease of native coronary artery without angina pectoris | CPT/HCPCS: 80053; 83036; 84443 ==

== ENCOUNTER → 2021-02-25 12:28 | Outpatient (BNVA) | payer MEDICARE, MEDICAID, SELFPAY | PROVIDERS: PCP Internal Medicine; Visit Provider Surgery | DX: Z01.812 Encounter for preprocedural laboratory examination (principal); Z20.822 Contact with and (suspected) exposure to COVID-19 | CPT/HCPCS: 87635 ==

== ENCOUNTER 2021-03-02 23:02 | Emergency (ER) | payer MEDICARE, MEDICAID, SELFPAY ==
[2021-03-02 23:10] VITALS: BP 165/75; PULSE 75; RESP 12; TEMP 37.2; O2SAT 96; BMI 32.4
--- NOTE | 2021-03-03 00:07 | W.ED.EXTPRO ---
HPI - Extremity Problem General: Chief complaint: Extremity Problem,Nontraumatic Stated complaint: bleeding post op arm surgery Time Seen by Provider: 03/02/21 23:30 History of Present Illness: HPI Narrative: 56-year-old female who had a AV fistula placement in the left upper extremity on Wednesday 3 days ago. She presents tonight with bleeding through her surgical dressing, with some increased pain and swelling. Bleeding is controlled currently. MD Complaint: extremity pain Onset (ago): hour(s) Pain Consistency: constant Location: left Quality: burning and aching Radiation: none Exacerbating factors: range of motion Associated symptoms: Reports no associated symptoms; Deny chest pain or fever(s) Context: recent surgery/procedure Review of Systems Const: Denies: fever(s) or chills Card: Denies: chest pain Resp: Denies: dyspnea Neuro: Denies: numbness in extremities or sensory changes PFS ED PFSH: Medical History Anxiety BPPV (benign paroxysmal positional vertigo) CAD (coronary artery disease) Carotid stenosis Chronic diastolic CHF (congestive heart failure) Chronic left sacroiliac joint pain Claustrophobia Diabetes mellitus Diverticulitis Elevated troponin End stage kidney disease End stage renal disease ESBL (extended spectrum beta-lactamase) producing bacteria infection DAILY (generalized anxiety disorder) Gastroparesis GERD (gastroesophageal reflux disease) Gram-negative bacteremia HTN (hypertension) Hyperlipidemia Hypothyroidism Major depression, recurrent DOROTEO on CPAP Partial nontraumatic amputation of left foot (~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) Peripheral vascular disease Peritonitis associated with peritoneal dialysis Phantom pain Suicidal ideation TIA (transient ischemic attack) Vitamin D deficiency Surgical History AV (arteriovenous fistula) (~10/2020) H/O hysterectomy with oophorectomy History of appendectomy History of heart artery stent (~2018) LAD, done in [place], [place] History of hysterectomy History of left heart catheterization History of right below knee amputation Peritoneal dialysis catheter in place Removed due to recurrent peritonitis S/P cholecystectomy S/P PICC central line placement (~2019) Status post amputation of toe Family History Denies family history of CAD (coronary artery disease) Clotting disorder Dementia Bleeding disorder Social History Smoking and tobacco status: never smoked Alcohol intake: never Household members: spouse and family History of recent travel: No Physical Exam Const: COMMON NORMALS: no acute distress, patient oriented x3 and alert Chest: COMMONS NORMALS: normal inspection of the chest Resp: COMMON NORMALS: normal respiratory effort and No use of accessory muscles Cardio: COMMON NORMALS: regular rate and regular rhythm RATE: regular rate RHYTHM: regular rhythm Extremity: NARRATIVE EXTREMITY EXAM: Surgical site to the medial left upper extremity reveals an intact incision. There is ecchymosis surrounding. No active bleeding. No drainage. No streaking redness Neuro: COMMON NORMALS: patient oriented x3 SENSORIUM/ORIENTATION: Yes alert Course Vital Signs: Vital signs: Vital Signs Temperature 98.9 F 03/02/21 23:10 Pulse Rate 71 03/03/21 00:32 Respiratory Rate 19 H 03/03/21 00:32 Blood Pressure 135/65 03/03/21 00:32 Pulse Oximetry 98 03/03/21 00:32 MDM - Extremity (Nontraumatic) MDM Narrative: Medical decision making narrative: No active bleeding. No sign of compartment syndrome. No evidence of infection some swelling, which is to be expected. Dressing changed, Surgicel placed with Telfa and Kerlix with Coban. Pictures taken by family with intent of calling vascular clinic later today for follow-up. Discharge Plan Discharge Patient Disposition: Home Clinical Impression: Surgical arteriovenous fistula hemorrhage Qualifiers: Encounter type: initial encounter Qualified Code(s): T82.838A - Hemorrhage due to vascular prosthetic devices, implants and grafts, initial encounter Condition: Stable Prescriptions: No Action nitroglycerin 0.4 mg tablet, sublingual 0.4 mg SUBLINGUAL Q5M PRN (Reason: Chest Pain) Qty: 25 RF: 6 amlodipine 5 mg tablet 5 mg PO DAILY Qty: 30 RF: 5 clonidine HCl 0.1 mg tablet 0.1 mg PO BID Qty: 60 RF: 5 Symbicort 160-4.5 mcg/actuation HFA aerosol inhaler 2 puff INHALATION DAILY Qty: 6 RF: 3 clopidogrel 75 mg tablet 75 mg PO DAILY@08 Qty: 90 RF: 3 Euthyrox 150 mcg tablet 150 mcg PO DAILY Qty: 30 RF: 3 aspirin 81 mg Tablet,Chewable 81 mg PO DAILY@08 RF: 0 pantoprazole 40 mg tablet,delayed release (DR/EC) 40 mg PO DAILY@08 RF: 0 Rocklatan 0.02-0.005 % Drops 1 drp OPHTHALMIC (EYE) DAILY@20 RF: 0 sennosides-docusate sodium 8.6-50 mg tablet 2 tab PO BID PRN (Reason: Constipation) RF: 0 atorvastatin 40 mg Tablet 40 mg PO DAILY@20 RF: 0 cholecalciferol (vitamin D3) [Vitamin D3] 25 mcg (1,000 unit) Tablet 25 mcg PO DAILY@08 RF: 0 trazodone 50 mg tablet See Rx Instructions .ROUTE .COMPLEX RF: 0 Zofran 4 mg tablet 4 mg PO Q6H PRN (Reason: nausea and vomiting) Qty: 15 RF: 0 multivitamin [Multiple Vitamins] Tablet 1 tab PO DAILY@08 RF: 0 omega 9-agd-ktm-fish oil [Fish Oil] 300-1,000 mg Capsule,Delayed Release(Dr/Ec) 1 cap PO BID@08,20 RF: 0 brimonidine 0.2 % drops 1 drp ophthalmic (eye) BID@08,20 RF: 0 dorzolamide-timolol 22.3-6.8 mg/mL drops 1 drp ophthalmic (eye) BID@08,20 RF: 0 escitalopram oxalate [Lexapro] 10 mg tablet 10 mg PO DAILY@08 RF: 0 Lantus Solostar U-100 Insulin 100 unit/mL (3 mL) insulin pen 30 unit SUBCUT BID@08,20 Qty: 15 RF: 12 ondansetron 4 mg tablet,disintegrating 4 mg PO Q6H PRN (Reason: nausea and vomiting) Qty: 14 RF: 0 Discharge Orders: Discharge ED (Routine); Ordered 03/03/21 Ordered By: Wayne Ambriz Referrals: Yovany Leonardo MD [Primary Care Provider] - Zac Kerr MD [Referring] - 1-3 days Patient Instructions: Acute Wound Care (ED) Activity Restrictions/Additional Instructions: Call the vascular surgery clinic later today, let them know that we had to change the dressing due to bleeding. They may want to see the pictures you took tonight. Return for worsening pain radiating down the forearm despite dressing, loss of sensation, extreme pain with movement of the wrist or fingers, fever, streaking redness, further drainage, any other concerning symptoms. Coding Level of Care Code ED Real Estate Site Analyst for Chg Fwd Exam Expanded Problem Focused
[2021-03-03 00:31] VITALS: PULSE 70
[2021-03-03 00:32] VITALS: BP 135/65; PULSE 71; RESP 19; O2SAT 98
== END 2021-03-03 00:32 | disposition home or self-care (01) ==
PROVIDERS: Emergency Provider Emergency Medicine; PCP Internal Medicine
DX: T82.838A Hemorrhage due to vascular prosthetic devices, implants and grafts, initial encounter (principal); Z79.82 Long term (current) use of aspirin; Z79.4 Long term (current) use of insulin; I25.10 Atherosclerotic heart disease of native coronary artery without angina pectoris; I13.2 Hypertensive heart and chronic kidney disease with heart failure and with stage 5 chronic kidney disease, or end stage renal disease; E11.22 Type 2 diabetes mellitus with diabetic chronic kidney disease; I50.32 Chronic diastolic (congestive) heart failure; N18.6 End stage renal disease; E78.5 Hyperlipidemia, unspecified; Z86.73 Personal history of transient ischemic attack (TIA), and cerebral infarction without residual deficits; Z79.02 Long term (current) use of antithrombotics/antiplatelets
CPT/HCPCS: 99281

== ENCOUNTER 2021-04-09 15:04 | Emergency (ER) | payer MEDICARE, MEDICAID, SELFPAY ==
[2021-04-09] VITALS (16 sets, daily range): BP systolic 150–183; BP diastolic 69–84; PULSE 57–64; RESP 10–18; TEMP 36.7–37.3; O2SAT 96–100; BMI 33.2
--- NOTE | 2021-04-09 15:11 | XR_ITS ---
WS: [id number] Portable AP upright chest, 04/09/2021 Clinical Data: chest pain Comparison: Portable chest, 12/21/2020. Findings: No nodules, masses or effusions are seen. The heart is enlarged. The pulmonary vascularity is not increased. No pneumonia or pneumothorax is seen. The right dialysis catheter remains in good p osition. Monitor leads are on the chest wall. The aortic arch and descending thoracic aorta show mini mal calcification and tortuosity. XR/XR chest 1V portable [id number] Impression: Cardiomegaly and atherosclerosis.
--- NOTE | 2021-04-09 15:12 | ECG_ITS ---
[facility] Test Date: 2021-04-09 Pat Name: Rizwana Herzog Department: Room: Gender: Female Shrimper: : 1965 Requested By: Abena Bender Order Number: [id number] Catherine MD: Dong Pitt M.D. Measurements Intervals [place] Rate: 57 P: 104 MN: 205 QRS: -43 QRSD: 85 T: 38 QT: 439 QTc: 428 Interpretive Statements SINUS BRADYCARDIA LEFT AXIS DEVIATION [QRS AXIS < -30] POSSIBLE ANTERIOR MYOCARDIAL INFARCTION , PROBABLY OLD [30 ms Q WAVE IN V3/V4, OR R < 0.2 mV IN V4] Compared to ECG 12/21/2020 16:42:38 Left-axis deviation now present Sinus rhythm no longer present Myocardial infarct finding still present Electronically Signed On 04-10-2021 17:11:43 CDT by Dong Pitt M.D. [email or web address]
--- NOTE | 2021-04-09 16:38 | W.ED.GENADLT ---
Documented by User: Abena Bender MD 04/12/21 22:57 HPI - General Adult General: Chief complaint: Chest Pain Stated complaint: chest pain Time Seen by Provider: 04/09/21 15:09 History of Present Illness: HPI narrative: CC: Chest Pain HPI: This is a [56] yo patient hx of HTN, DM, CAD s/p stents x 3, dialysis MWF presenting to the ED complaining of acute sudden onset intermittent pressure like chest pain x 3 hrs while getting dialysis session. No associated with shortness of breath, chest pain or dyspnea on exertion. Pain is not tearing in nature and does not radiate to the back. Pain not associated with vomiting or PO intake. Denies any recent sympathomimetic drug use. Patient denies any cough. Denies palpitations, dysphagia, diaphoresis, radiation of pain to bilateral arms, jaw. Denies F/N/V/D. Patient denies any recent immobility, surgery, unilateral leg swelling, or prior PE. Patient denies any orthopnea. Onset: 3 hrs ago Duration: ongoing for the last 3 hrs Location: home Severity: moderate Review of Systems Narrative: Constitutional: No fever, no chills. HEENT: No vision changes, no sore throat. CV: +chest pain, no palpitations. PULM: No cough, No dyspnea. GI: No abdominal pain, no N/V/D. : No dysuria, no frequency, no hematuria. MSKEL: No arthralgias, no edema. SKIN: No new rashes, no lesions. NEURO: No headache, no focal weakness. HEME: No easy bleeding or bruising. PSYCH: No change in mood or affect. [facility] ED PFSH: Medical History Anxiety BPPV (benign paroxysmal positional vertigo) CAD (coronary artery disease) Carotid stenosis Chronic diastolic CHF (congestive heart failure) Chronic left sacroiliac joint pain Claustrophobia Diabetes mellitus Diverticulitis Elevated troponin End stage kidney disease End stage renal disease ESBL (extended spectrum beta-lactamase) producing bacteria infection DAILY (generalized anxiety disorder) Gastroparesis GERD (gastroesophageal reflux disease) Gram-negative bacteremia HTN (hypertension) Hyperlipidemia Hypothyroidism Major depression, recurrent DOROTEO on CPAP Partial nontraumatic amputation of left foot (~06/2019) Peripheral vascular disease Peritonitis associated with peritoneal dialysis Phantom pain Suicidal ideation TIA (transient ischemic attack) Vitamin D deficiency Surgical History AV (arteriovenous fistula) (~10/2020) H/O hysterectomy with oophorectomy History of appendectomy History of heart artery stent (~2018) LAD, done in [place], [place] History of hysterectomy History of left heart catheterization History of right below knee amputation Peritoneal dialysis catheter in place Removed due to recurrent peritonitis S/P cholecystectomy S/P PICC central line placement (~2019) Status post amputation of toe Family History Denies family history of CAD (coronary artery disease) Clotting disorder Dementia Bleeding disorder Social History Alcohol intake: never Household members: spouse and family History of recent travel: No Physical Exam Narrative: EXAM NARRATIVE: Head: Atraumatic, normocephalic Eyes: PERRL, EOMI, conjunctiva without injection ENT: Throat without erythema, lesions or exudate, MMM NECK: Supple, trachea midline, no JVD LUNGS: LCTA CV: RRR, S1,S2, no murmurs, rubs, gallops. 2+ peripheral pulses in UEs ABDOMEN: Soft, nontender, nondistended, BS x4, no rigidity, no guarding, no rebound EXTREMITY: Normal ROM, no pitting edema, no calf tenderness to palpation SKIN: No rash or erythema NEURO: Awake and alert. No focal motor deficits. PSYCH: Normal mood and affect. Course Vital Signs: Vital signs: Vital Signs Temperature 99.1 F 04/09/21 20:17 Pulse Rate 64 04/09/21 20:17 Respiratory Rate 18 04/09/21 20:17 Blood Pressure 154/82 04/09/21 20:17 Pulse Oximetry 96 04/09/21 20:17 MDM - General Adult MDM Narrative: Medical decision making narrative: [56]yo patient w/ hx of dialysis, CAD s/p stent x 2, HTN, DM presenting to the ED with evaluation of new onset chest pain while getting dialysis earlier today 3 hrs ago. HDS, pulse 2+ radially bilaterally, no signs of fluid overload, AAOx3, neuro exam intact. Given History and Exam today I have no suspicion for ACS, Pneumothorax, Pneumonia, Pulmonary Embolus, Tamponade, Aortic Dissection or other emergent problems as a cause for this presentation. Workup: ECG, CXR, CBC, BMP, Troponin Interventions: Ibuprofen 600mg PRN pain Findings: ECG: No overt evidence of STEMI, hyperacute T waves, localizable STD or T wave inversions. No evidence of Brugada?s sign, delta wave, epsilon wave, significantly prolonged QTc, or malignant arrhythmia. No Q waves. Other Labs unremarkable for emergent problems. CXR: Without PTX, PNA, or widened mediastinum Last Stress Test: never Last Heart Catheterization: never HEART Score: 0 PERC: Negative On reassessment, the patient is HDS, no complaints of persistent chest pain in the ED after evaluation. ECG is non-ischemic. Workup today is unremarkable. Doubt ACS/PE or other emergent causes of chest pain. Disposition: Discharge. Strict return precautions discussed with the patient with full understanding. Advised patient to follow up promptly with a primary care provider in 24-48 hrs if the patient has persistent symptoms. Given return instructions for any crushing/tearing chest pain, focal weakness, syncope or any new or concerning issues. Lab Data: Labs: Lab Results 04/09/21 04/09/21 04/09/21 16:55 16:55 16:55 WBC 6.9 10^3/uL 10^3/ uL (4.0-10.0) RBC 3.49 10^6/uL L 10 ^6/uL (4.1-5.3) Hgb 11.6 g/dL g/dL (11.5-15.3) Hct 34.8 % L % (37.0-47.0) MCV 99.7 fl H fl (81-99) MCH 33.2 pg pg (28.0-34.0) MCHC 33.3 g/dL g/dL (30.0-36.0) RDW 14.2 % % (12.1-15.1) Plt Count 161 10^3/cmm 10^3 /cmm (130-400) MPV 10.4 fL fL (7.4-10.4) Neut % (Auto) 75.3 % % Lymph % (Auto) 12.0 % % Alfalfa % (Auto) 5.9 % % Eos % (Auto) 6.1 % % Baso % (Auto) 0.6 % % Neut # (Auto) 5.23 10^3/uL 10^3 /uL (1.8-7.7) Lymph # (Auto) 0.8 10^3/uL 10^3/ uL (0.8-4.8) Alfalfa # (Auto) 0.4 10^3/uL 10^3/ uL (0.2-0.9) Eos # (Auto) 0.4 10^3/uL 10^3/ uL (0.0-0.8) Baso # (Auto) 0.0 10^3/uL 10^3/ uL (0.0-0.1) Nucleated RBC % (a uto) 0 % % Nucleated RBCs # 0.0 /100WBC /100W BC Sodium 137 mmol/L mmol/L (136-145) Potassium 3.7 mmol/L mmol/L (3.5-5.1) Chloride 97 mmol/L L mmol/ L (98-107) Carbon Dioxide 29 mmol/L mmol/L (22-29) Anion Gap 14.7 (5-19) BUN 27 mg/dL H mg/dL (6-20) Creatinine 4.1 mg/dL H mg/dL (0.5-0.9) GFR Calculation 11.2 mL/min L mL/ min (90-130) Glucose 118 mg/dL H mg/dL (65-115) Calculated Osmolal ity 290 mOsm/kg mOsm/ kg (285-295) Calcium 9.2 mg/dL mg/dL (8.5-10.5) Troponin T Baselin e 87 ng/L H ng/L (0-10) Troponin T 120 Min octavio Delta Troponin T NT-Pro-B Natriuret Pep 2016 pg/mL H pg/m L (0-125) 04/09/21 19:14 WBC RBC Hgb Hct MCV MCH MCHC RDW Plt Count MPV Neut % (Auto) Lymph % (Auto) Alfalfa % (Auto) Eos % (Auto) Baso % (Auto) Neut # (Auto) Lymph # (Auto) Alfalfa # (Auto) Eos # (Auto) Baso # (Auto) Nucleated RBC % (a uto) Nucleated RBCs # Sodium Potassium Chloride Carbon Dioxide Anion Gap BUN Creatinine GFR Calculation Glucose Calculated Osmolal ity Calcium Troponin T Baselin e Troponin T 120 Min octavio 87.95 ng/L H ng/L (0-10) Delta Troponin T 0.95 ABS# ABS# (0-10) NT-Pro-B Natriuret Pep Discharge Plan Discharge Patient Disposition: Home Clinical Impression: Chest pain Qualifiers: Chest pain type: unspecified Qualified Code(s): R07.9 - Chest pain, unspecified Condition: Stable Prescriptions: No Action nitroglycerin 0.4 mg tablet, sublingual 0.4 mg SUBLINGUAL Q5M PRN (Reason: Chest Pain) Qty: 25 RF: 6 amlodipine 5 mg tablet 5 mg PO DAILY Qty: 30 RF: 5 clonidine HCl 0.1 mg tablet 0.1 mg PO BID Qty: 60 RF: 5 Symbicort 160-4.5 mcg/actuation HFA aerosol inhaler 2 puff INHALATION DAILY Qty: 6 RF: 3 clopidogrel 75 mg tablet 75 mg PO DAILY@08 Qty: 90 RF: 3 Euthyrox 150 mcg tablet 150 mcg PO DAILY Qty: 30 RF: 3 pantoprazole 40 mg tablet,delayed release (DR/EC) 40 mg PO DAILY@08 Qty: 90 RF: 3 aspirin 81 mg Tablet,Chewable 81 mg PO DAILY@08 RF: 0 Rocklatan 0.02-0.005 % Drops 1 drp OPHTHALMIC (EYE) DAILY@20 RF: 0 sennosides-docusate sodium 8.6-50 mg tablet 2 tab PO BID PRN (Reason: Constipation) RF: 0 atorvastatin 40 mg Tablet 40 mg PO DAILY@20 RF: 0 cholecalciferol (vitamin D3) [Vitamin D3] 25 mcg (1,000 unit) Tablet 25 mcg PO DAILY@08 RF: 0 trazodone 50 mg tablet See Rx Instructions .ROUTE .COMPLEX RF: 0 Zofran 4 mg tablet 4 mg PO Q6H PRN (Reason: nausea and vomiting) Qty: 15 RF: 0 multivitamin [Multiple Vitamins] Tablet 1 tab PO DAILY@08 RF: 0 omega 7-dij-ljz-fish oil [Fish Oil] 300-1,000 mg Capsule,Delayed Release(Dr/Ec) 1 cap PO BID@08,20 RF: 0 brimonidine 0.2 % drops 1 drp ophthalmic (eye) BID@08,20 RF: 0 dorzolamide-timolol 22.3-6.8 mg/mL drops 1 drp ophthalmic (eye) BID@,20 RF: 0 escitalopram oxalate [Lexapro] 10 mg tablet 10 mg PO DAILY@08 RF: 0 Lantus Solostar U-100 Insulin 100 unit/mL (3 mL) insulin pen 30 unit SUBCUT BID@,20 Qty: 15 RF: 12 ondansetron 4 mg tablet,disintegrating 4 mg PO Q6H PRN (Reason: nausea and vomiting) Qty: 14 RF: 0 Discharge Orders: Discharge ED (Routine); Ordered 04/09/21 Ordered By: Carlos A Jeronimo Referrals: Yovany Leonardo MD [Primary Care Provider] - 1-3 days Discharge Diet: Advance as tolerated Discharge Activity: Resume usual activity Patient Instructions: Chest Pain (ED) Coding Level of Care Code ED Retirement Plan Counselor for Chg Fwd Documented by User: Carlos A Jeronimo MD 04/09/21 20:08 HPI - General Adult General: Chief complaint: Chest Pain Stated complaint: chest pain Time Seen by Provider: 04/09/21 15:09 [facility] ED PFSH: Medical History Anxiety BPPV (benign paroxysmal positional vertigo) CAD (coronary artery disease) Carotid stenosis Chronic diastolic CHF (congestive heart failure) Chronic left sacroiliac joint pain Claustrophobia Diabetes mellitus Diverticulitis Elevated troponin End stage kidney disease End stage renal disease ESBL (extended spectrum beta-lactamase) producing bacteria infection DAILY (generalized anxiety disorder) Gastroparesis GERD (gastroesophageal reflux disease) Gram-negative bacteremia HTN (hypertension) Hyperlipidemia Hypothyroidism Major depression, recurrent DOROTEO on CPAP Partial nontraumatic amputation of left foot (~06/2019) Peripheral vascular disease Peritonitis associated with peritoneal dialysis Phantom pain Suicidal ideation TIA (transient ischemic attack) Vitamin D deficiency Surgical History AV (arteriovenous fistula) (~10/2020) H/O hysterectomy with oophorectomy History of appendectomy History of heart artery stent (~2018) LAD, done in [place], [place] History of hysterectomy History of left heart catheterization History of right below knee amputation Peritoneal dialysis catheter in place Removed due to recurrent peritonitis S/P cholecystectomy S/P PICC central line placement (~2019) Status post amputation of toe Family History Denies family history of CAD (coronary artery disease) Clotting disorder Dementia Bleeding disorder Social History Alcohol intake: never Household members: spouse and family History of recent travel: No Course Vital Signs: Vital signs: Vital Signs Temperature 99.1 F 04/09/21 20:17 Pulse Rate 64 04/09/21 20:17 Respiratory Rate 18 04/09/21 20:17 Blood Pressure 154/82 04/09/21 20:17 Pulse Oximetry 96 04/09/21 20:17 MDM - General Adult MDM Narrative: Medical decision making narrative: Patient presents for chest pains atypical in nature repeat troponin showed no changes no signs of acute coronary syndrome she is stable for discharge she is to follow-up with PCP and return if worsening. Lab Data: Labs: Lab Results 04/09/21 04/09/21 04/09/21 16:55 16:55 16:55 WBC 6.9 10^3/uL 10^3/ uL (4.0-10.0) RBC 3.49 10^6/uL L 10 ^6/uL (4.1-5.3) Hgb 11.6 g/dL g/dL (11.5-15.3) Hct 34.8 % L % (37.0-47.0) MCV 99.7 fl H fl (81-99) MCH 33.2 pg pg (28.0-34.0) MCHC 33.3 g/dL g/dL (30.0-36.0) RDW 14.2 % % (12.1-15.1) Plt Count 161 10^3/cmm 10^3 /cmm (130-400) MPV 10.4 fL fL (7.4-10.4) Neut % (Auto) 75.3 % % Lymph % (Auto) 12.0 % % Alfalfa % (Auto) 5.9 % % Eos % (Auto) 6.1 % % Baso % (Auto) 0.6 % % Neut # (Auto) 5.23 10^3/uL 10^3 /uL (1.8-7.7) Lymph # (Auto) 0.8 10^3/uL 10^3/ uL (0.8-4.8) Alfalfa # (Auto) 0.4 10^3/uL 10^3/ uL (0.2-0.9) Eos # (Auto) 0.4 10^3/uL 10^3/ uL (0.0-0.8) Baso # (Auto) 0.0 10^3/uL 10^3/ uL (0.0-0.1) Nucleated RBC % (a uto) 0 % % Nucleated RBCs # 0.0 /100WBC /100W BC Sodium 137 mmol/L mmol/L (136-145) Potassium 3.7 mmol/L mmol/L (3.5-5.1) Chloride 97 mmol/L L mmol/ L (98-107) Carbon Dioxide 29 mmol/L mmol/L (22-29) Anion Gap 14.7 (5-19) BUN 27 mg/dL H mg/dL (6-20) Creatinine 4.1 mg/dL H mg/dL (0.5-0.9) GFR Calculation 11.2 mL/min L mL/ min (90-130) Glucose 118 mg/dL H mg/dL (65-115) Calculated Osmolal ity 290 mOsm/kg mOsm/ kg (285-295) Calcium 9.2 mg/dL mg/dL (8.5-10.5) Troponin T Baselin e 87 ng/L H ng/L (0-10) Troponin T 120 Min octavio Delta Troponin T NT-Pro-B Natriuret Pep 2016 pg/mL H pg/m L (0-125) 04/09/21 19:14 WBC RBC Hgb Hct MCV MCH MCHC RDW Plt Count MPV Neut % (Auto) Lymph % (Auto) Alfalfa % (Auto) Eos % (Auto) Baso % (Auto) Neut # (Auto) Lymph # (Auto) Alfalfa # (Auto) Eos # (Auto) Baso # (Auto) Nucleated RBC % (a uto) Nucleated RBCs # Sodium Potassium Chloride Carbon Dioxide Anion Gap BUN Creatinine GFR Calculation Glucose Calculated Osmolal ity Calcium Troponin T Baselin e Troponin T 120 Min octavio 87.95 ng/L H ng/L (0-10) Delta Troponin T 0.95 ABS# ABS# (0-10) NT-Pro-B Natriuret Pep Discharge Plan Discharge Patient Disposition: Home Clinical Impression: Chest pain Qualifiers: Chest pain type: unspecified Qualified Code(s): R07.9 - Chest pain, unspecified Condition: Stable Prescriptions: No Action nitroglycerin 0.4 mg tablet, sublingual 0.4 mg SUBLINGUAL Q5M PRN (Reason: Chest Pain) Qty: 25 RF: 6 amlodipine 5 mg tablet 5 mg PO DAILY Qty: 30 RF: 5 clonidine HCl 0.1 mg tablet 0.1 mg PO BID Qty: 60 RF: 5 Symbicort 160-4.5 mcg/actuation HFA aerosol inhaler 2 puff INHALATION DAILY Qty: 6 RF: 3 clopidogrel 75 mg tablet 75 mg PO DAILY@08 Qty: 90 RF: 3 Euthyrox 150 mcg tablet 150 mcg PO DAILY Qty: 30 RF: 3 pantoprazole 40 mg tablet,delayed release (DR/EC) 40 mg PO DAILY@08 Qty: 90 RF: 3 aspirin 81 mg Tablet,Chewable 81 mg PO DAILY@08 RF: 0 Rocklatan 0.02-0.005 % Drops 1 drp OPHTHALMIC (EYE) DAILY@20 RF: 0 sennosides-docusate sodium 8.6-50 mg tablet 2 tab PO BID PRN (Reason: Constipation) RF: 0 atorvastatin 40 mg Tablet 40 mg PO DAILY@20 RF: 0 cholecalciferol (vitamin D3) [Vitamin D3] 25 mcg (1,000 unit) Tablet 25 mcg PO DAILY@08 RF: 0 trazodone 50 mg tablet See Rx Instructions .ROUTE .COMPLEX RF: 0 Zofran 4 mg tablet 4 mg PO Q6H PRN (Reason: nausea and vomiting) Qty: 15 RF: 0 multivitamin [Multiple Vitamins] Tablet 1 tab PO DAILY@08 RF: 0 omega 9-vps-iwe-fish oil [Fish Oil] 300-1,000 mg Capsule,Delayed Release(Dr/Ec) 1 cap PO BID@08,20 RF: 0 brimonidine 0.2 % drops 1 drp ophthalmic (eye) BID@08,20 RF: 0 dorzolamide-timolol 22.3-6.8 mg/mL drops 1 drp ophthalmic (eye) BID@08,20 RF: 0 escitalopram oxalate [Lexapro] 10 mg tablet 10 mg PO DAILY@08 RF: 0 Lantus Solostar U-100 Insulin 100 unit/mL (3 mL) insulin pen 30 unit SUBCUT BID@08,20 Qty: 15 RF: 12 ondansetron 4 mg tablet,disintegrating 4 mg PO Q6H PRN (Reason: nausea and vomiting) Qty: 14 RF: 0 Discharge Orders: Discharge ED (Routine); Ordered 04/09/21 Ordered By: Carlos A Jeronimo Referrals: Yovany Leonardo MD [Primary Care Provider] - 1-3 days Discharge Diet: Advance as tolerated Discharge Activity: Resume usual activity Patient Instructions: Chest Pain (ED) Coding Level of Care Code ED Retirement Plan Counselor for Maris Braden
[2021-04-09 17:02] LABS: Basophils % 0.6 %; Eosinophils # 0.4 10^3/uL (0.0-0.8); Eosinophils % 6.1 %; Hematocrit 34.8 % (37.0-47.0); Hemoglobin 11.6 g/dL (11.5-15.3); Lymphocytes # 0.8 10^3/uL (0.8-4.8); Mean Corpuscular HGB Conc 33.3 g/dL (30.0-36.0); Mean Corpuscular Hemoglobin 33.2 pg (28.0-34.0); Mean Corpuscular Volume 99.7 fl (81-99); Mean Platelet Volume 10.4 fL (7.4-10.4); Monocytes # 0.4 10^3/uL (0.2-0.9); Monocytes % 5.9 %; Neutrophils # 5.23 10^3/uL (1.8-7.7); Neutrophils % 75.3 %; Nucleated Red Blood Cells % 0 %; Platelet Count 161 10^3/cmm (130-400); Red Blood Count 3.49 10^6/uL (4.1-5.3); Red Cell Distribution Width 14.2 % (12.1-15.1); White Blood Count 6.9 10^3/uL (4.0-10.0)
[2021-04-09 17:38] LABS: Anion Gap 14.7 (5-19); Blood Urea Nitrogen 27 mg/dL (6-20); Calcium 9.2 mg/dL (8.5-10.5); Carbon Dioxide 29 mmol/L (22-29); Chloride 97 mmol/L (98-107); Glomerular Filtration Rate 11.2 mL/min (90-130); Glucose 118 mg/dL (65-115); NT Pro B Type Natriuretic Pept 2016 pg/mL (0-125); Osmolality Calculated 290 mOsm/kg (285-295); Potassium 3.7 mmol/L (3.5-5.1); Sodium 137 mmol/L (136-145)
[2021-04-09 18:07] LABS: Troponin(5th) Baseline 87 ng/L (0-10)
[2021-04-09 19:50] LABS: Troponin 5 2HR 87.95 ng/L (0-10); Troponin 5 2HR Delta 0.95 ABS# (0-10)
== END 2021-04-09 20:18 | disposition home or self-care (01) ==
PROVIDERS: Emergency Medicine; Emergency Provider Emergency Medicine; PCP Internal Medicine
DX: R07.9 Chest pain, unspecified (principal); Z99.2 Dependence on renal dialysis; Z79.82 Long term (current) use of aspirin; Z79.4 Long term (current) use of insulin; E11.22 Type 2 diabetes mellitus with diabetic chronic kidney disease; I13.2 Hypertensive heart and chronic kidney disease with heart failure and with stage 5 chronic kidney disease, or end stage renal disease; N18.6 End stage renal disease; I50.32 Chronic diastolic (congestive) heart failure; I25.10 Atherosclerotic heart disease of native coronary artery without angina pectoris; E78.5 Hyperlipidemia, unspecified; E03.9 Hypothyroidism, unspecified; Z86.73 Personal history of transient ischemic attack (TIA), and cerebral infarction without residual deficits; G47.33 Obstructive sleep apnea (adult) (pediatric); Z79.02 Long term (current) use of antithrombotics/antiplatelets; Z95.5 Presence of coronary angioplasty implant and graft
CPT/HCPCS: 71045; 80048; 83880; 84484; 85025; 93005; 99284

== ENCOUNTER 2021-05-23 16:04 | Emergency (ER) | payer MEDICARE, MEDICAID, SELFPAY ==
[2021-05-23 16:25] VITALS: BP 165/89; PULSE 73; RESP 18; TEMP 36.7; O2SAT 96; BMI 33.1
[2021-05-23 16:37] VITALS: BP 165/89; PULSE 73; RESP 18; O2SAT 96
--- NOTE | 2021-05-23 16:47 | ED.C_ITS ---
Documented by User: Karan Daniels DO 05/27/21 06:51 HPI - Psych General: Chief Complaint: Psychiatric Symptoms Stated Complaint: SI Time Seen by Provider: 05/23/21 16:28 History of Present Illness: HPI Narrative: 56-year-old female presents to the emergency room from dialysis. Severed at dialysis she made a comment about wanting everything to stop so she could have a day off and not worry about anything this is interpreted as being suicidal ideation. She denies having attempted to harm herself up to this point she states this is been going on for about 3 months or relates to conversation she had with her where he said that she was a waste of time and money. She states she is considered suicide but never done anything to advance lethality and she has no specific plan. MD complaint: feels depressed Onset (ago): month(s) Duration: constant History of same: Yes Relieving factors: none Exacerbating factors: none Associated psychiatric symptoms: depression and suicidal ideation Associated symptoms: Reports depression Treatments prior to arrival: none If self harm: admits thoughts of self harm Review of Systems Const: Denies: fever(s), chills, body aches, change in appetite, fatigue or malaise ENMT: Denies: throat pain, ear or mastoid pain, nasal discharge or nasal congestion Card: Denies: chest pain, edema, dyspnea on exertion or orthopnea Resp: Denies: dyspnea, productive cough or non-productive cough GI: Denies: abdominal pain, nausea, vomiting, hematemesis, coffee ground emesis, diarrhea, constipation, bloating, hematochezia or melena : Denies: flank pain, difficulty voiding, dysuria, urinary frequency or urinary urgency Skin/Breast: Denies: rash or pruritus Psych: Reports: depression PFSH ED PFSH: Medical History Anxiety BPPV (benign paroxysmal positional vertigo) CAD (coronary artery disease) Carotid stenosis Chronic diastolic CHF (congestive heart failure) Chronic left sacroiliac joint pain Claustrophobia Diabetes mellitus Diverticulitis Elevated troponin End stage kidney disease End stage renal disease ESBL (extended spectrum beta-lactamase) producing bacteria infection DAILY (generalized anxiety disorder) Gastroparesis GERD (gastroesophageal reflux disease) Gram-negative bacteremia HTN (hypertension) Hyperlipidemia Hypothyroidism Major depression, recurrent DOROTEO on CPAP PAD (peripheral artery disease) Partial nontraumatic amputation of left foot (~06/2019) Peripheral vascular disease Peritonitis associated with peritoneal dialysis Phantom pain Suicidal ideation TIA (transient ischemic attack) Vitamin D deficiency Surgical History AV (arteriovenous fistula) (~10/2020) H/O hysterectomy with oophorectomy History of appendectomy History of heart artery stent (~2018) LAD, done in [place], [place] History of hysterectomy History of left heart catheterization History of right below knee amputation Peritoneal dialysis catheter in place Removed due to recurrent peritonitis S/P cholecystectomy S/P PICC central line placement (~2019) Status post amputation of toe Family History Denies family history of CAD (coronary artery disease) Clotting disorder Dementia Bleeding disorder Social History Smoking and tobacco status: never smoked Alcohol intake: never Household members: spouse and family History of recent travel: No Physical Exam Const: COMMON NORMALS: no acute distress GENERAL APPEARANCE: cooperative and comfortable ORIENTATION/CONSCIOUSNESS: Yes awake, Yes oriented to person, Yes oriented to place and Yes oriented to time HENMT: COMMON NORMALS: normocephalic, atraumatic, hearing grossly normal bilaterally and external ears normal HEAD & SCALP: normocephalic and atraumatic EXTERNAL EAR: Yes external ears normal Eye: COMMON NORMALS: Equal, round and reactive pupils present, EOMs intact bilaterally, conjunctivae normal and no scleral icterus CONJUNCTIVA: Yes conjunctivae normal PUPIL: Yes Equal, round and reactive pupils present Neck/C-Spine: COMMON NORMALS: full ROM, no lymphadenopathy, supple and no JVD Lymph: LYMPHATIC: no lymphadenopathy noted and no lymphedema noted Resp: COMMON NORMALS: normal respiratory effort, No retractions, No use of accessory muscles and clear to auscultation bilaterally AUSCULTATION: clear to auscultation bilaterally Cardio: COMMON NORMALS: no JVD, regular rate, regular rhythm and No murmurs present (Cardio) RATE: regular rate RHYTHM: regular rhythm GI: COMMON NORMALS: Soft to palpation and No hepatosplenomegaly present AUSCULTATION: Yes normoactive bowel sounds PALPATION: Yes Soft to palpation, No Tenderness to palpation present (GI), No Guarding due to palpation present ( GI) and Yes No hepatosplenomegaly present Extremity: COMMON NORMALS: normal to inspection, capillary refill normal, no clubbing, cyanosis or edema, no calf tenderness and no pedal edema Neuro: SENSORIUM/ORIENTATION: Yes oriented to person, Yes oriented to place and Yes oriented to time Skin: COMMON NORMALS: no rashes or lesions noted GENERAL SKIN EXAM: no rashes or lesions noted Course Vital Signs: Vital signs: Vital Signs Temperature 98.1 F 05/23/21 16:25 Pulse Rate 70 05/23/21 20:43 Respiratory Rate 18 05/23/21 20:43 Blood Pressure 142/81 05/23/21 20:43 Pulse Oximetry 97 05/23/21 20:43 MDM - Psych MDM Narrative: Medical decision making narrative: Care turned over to Dr. Ambriz at change of shift see his note from diagnosis disposition Lab Data: Labs: Lab Results 05/23/21 05/23/21 05/23/21 17:47 17:47 17:47 WBC 4.6 10^3/uL 10^3/ uL (4.0-10.0) RBC 4.45 10^6/uL 10^6 /uL (4.1-5.3) Hgb 14.1 g/dL g/dL (11.5-15.3) Hct 42.8 % % (37.0-47.0) MCV 96.2 fl fl (81-99) MCH 31.7 pg pg (28.0-34.0) MCHC 32.9 g/dL g/dL (30.0-36.0) RDW 13.2 % % (12.1-15.1) Plt Count 188 10^3/cmm 10^3 /cmm (130-400) MPV 10.9 fL H fL (7.4-10.4) Neut % (Auto) 72.2 % % Lymph % (Auto) 16.1 % % Travis % (Auto) 7.4 % % Eos % (Auto) 3.9 % % Baso % (Auto) 0.4 % % Neut # (Auto) 3.32 10^3/uL 10^3 /uL (1.8-7.7) Lymph # (Auto) 0.7 10^3/uL L 10^ 3/uL (0.8-4.8) Travis # (Auto) 0.3 10^3/uL 10^3/ uL (0.2-0.9) Eos # (Auto) 0.2 10^3/uL 10^3/ uL (0.0-0.8) Baso # (Auto) 0.0 10^3/uL 10^3/ uL (0.0-0.1) Nucleated RBC % (a uto) 0 % % Nucleated RBCs # 0.0 /100WBC /100W BC Sodium 135 mmol/L L mmol /L (136-145) Potassium 4.7 mmol/L mmol/L (3.5-5.1) Chloride 96 mmol/L L mmol/ L (98-107) Carbon Dioxide 22 mmol/L mmol/L (22-29) Anion Gap 21.7 H (5-19) BUN 13 mg/dL mg/dL (6-20) Creatinine 4.0 mg/dL H mg/dL (0.5-0.9) GFR Calculation 11.5 mL/min L mL/ min (90-130) Glucose 71 mg/dL mg/dL (65-115) Calculated Osmolal ity 279 mOsm/kg L mOs m/kg (285-295) Calcium 8.5 mg/dL mg/dL (8.5-10.5) Total Bilirubin 0.7 mg/dL mg/dL (0.15-1.2) AST 18 U/L U/L (0-32) ALT 13 U/L U/L (0-33) Alkaline Phosphata se 154 IU/L H IU/L (35-105) Total Protein 6.9 g/dL g/dL (6.6-8.7) Albumin 3.8 g/dL g/dL (3.5-5.2) Globulin 3.1 g/dL g/dL (1.3-4.6) Urine Color Urine Appearance Urine pH Ur Specific Gravit y Urine Protein Urine Glucose (UA) Urine Ketones Urine Blood Urine Nitrate Urine Bilirubin Prot Sulfosalicyli c Acd Urine Urobilinogen Ur Leukocyte Yara ase Urine RBC Urine WBC Ur Squamous Epith Cells Amorphous Sediment Urine Bacteria Salicylates < 0.3 mg/dL L mg/ dL (3-10) Urine Opiates Scre en Acetaminophen < 5.0 ug/mL L ug/ mL (10-30) Ur Barbiturates Sc reen Ur Phencyclidine S crn Ur Amphetamines Sc reen U Benzodiazepines Scrn Urine Cocaine Scre en U Marijuana (THC) Screen 05/23/21 05/23/21 19:42 19:42 WBC RBC Hgb Hct MCV MCH MCHC RDW Plt Count MPV Neut % (Auto) Lymph % (Auto) Travis % (Auto) Eos % (Auto) Baso % (Auto) Neut # (Auto) Lymph # (Auto) Travis # (Auto) Eos # (Auto) Baso # (Auto) Nucleated RBC % (a uto) Nucleated RBCs # Sodium Potassium Chloride Carbon Dioxide Anion Gap BUN Creatinine GFR Calculation Glucose Calculated Osmolal ity Calcium Total Bilirubin AST ALT Alkaline Phosphata se Total Protein Albumin Globulin Urine Color Yellow (Yellow) Urine Appearance Clear (CLEAR) Urine pH 9 H (5-7) Ur Specific Gravit y 1.015 (1.005-1.030) Urine Protein 3+ H (Negative) Urine Glucose (UA) 2+ H (Normal) Urine Ketones 1+ H (Negative) Urine Blood 2+ H (Negative) Urine Nitrate Negative (Negative) Urine Bilirubin Neg (Negative) Prot Sulfosalicyli c Acd Positive (Negative) Urine Urobilinogen Norm mg/dL mg/dL (Negative) Ur Leukocyte Yara ase 1+ H (Negative) Urine RBC 10-15 /hpf H /hpf (0-2) Urine WBC >100 /hpf H /hpf (0-5) Ur Squamous Epith Cells 55-80 /hpf H /hpf (0-5) Amorphous Sediment 2+ /hpf /hpf Urine Bacteria 4+ /hpf H /hpf (NONE) Salicylates Urine Opiates Scre en Negative ng/mL ng /mL (Negative) Acetaminophen Ur Barbiturates Sc reen Negative ng/mL ng /mL (Negative) Ur Phencyclidine S crn Negative ng/mL ng /mL (Negative) Ur Amphetamines Sc reen Negative ng/mL ng /mL (Negative) U Benzodiazepines Scrn Negative ng/mL ng /mL (Negative) Urine Cocaine Scre en Negative ng/mL ng /mL (Negative) U Marijuana (THC) Screen Negative ng/mL ng /mL (Negative) Discharge Plan Discharge Patient Disposition: Home Clinical Impression: Depressed affect Condition: Stable Prescriptions: No Action nitroglycerin 0.4 mg tablet, sublingual 0.4 mg SUBLINGUAL Q5M PRN (Reason: Chest Pain) Qty: 25 RF: 6 amlodipine 5 mg tablet 5 mg PO DAILY Qty: 30 RF: 5 clonidine HCl 0.1 mg tablet 0.1 mg PO BID Qty: 60 RF: 5 clopidogrel 75 mg tablet 75 mg PO DAILY@08 Qty: 90 RF: 3 Euthyrox 150 mcg tablet 150 mcg PO DAILY Qty: 30 RF: 3 pantoprazole 40 mg tablet,delayed release (DR/EC) 40 mg PO DAILY@08 Qty: 90 RF: 3 atorvastatin 40 mg tablet 40 mg PO DAILY@20 Qty: 90 RF: 3 (DME) PROSTHETIC SUPPLIES See Rx Instructions .Route .MEDSUPPLY Qty: 1 RF: 0 aspirin 81 mg Tablet,Chewable 81 mg PO DAILY@08 RF: 0 Rocklatan 0.02-0.005 % Drops 1 drp OPHTHALMIC (EYE) DAILY@20 RF: 0 cholecalciferol (vitamin D3) [Vitamin D3] 25 mcg (1,000 unit) Tablet 25 mcg PO DAILY@08 RF: 0 Zofran 4 mg tablet 4 mg PO Q6H PRN (Reason: nausea and vomiting) Qty: 15 RF: 0 multivitamin [Multiple Vitamins] Tablet 1 tab PO DAILY@08 RF: 0 omega 8-bpe-rci-fish oil [Fish Oil] 300-1,000 mg Capsule,Delayed Release(Dr/Ec) 1 cap PO BID@08,20 RF: 0 brimonidine 0.2 % drops 1 drp ophthalmic (eye) BID@08,20 RF: 0 dorzolamide-timolol 22.3-6.8 mg/mL drops 1 drp ophthalmic (eye) BID@08,20 RF: 0 Lantus Solostar U-100 Insulin 100 unit/mL (3 mL) insulin pen 30 unit SUBCUT BID@08,20 Qty: 15 RF: 12 ondansetron 4 mg tablet,disintegrating 4 mg PO Q6H PRN (Reason: nausea and vomiting) Qty: 14 RF: 0 Discharge Orders: Discharge ED (Routine); Ordered 05/23/21 Ordered By: Wayne Ambriz Referrals: Yovany Leonardo MD [Primary Care Provider] - Patient Instructions: Depression (ED) Activity Restrictions/Additional Instructions: Return immediately to the emergency room for any thoughts or wishes to harm your self or anyone else. Return also if you feel unsafe at home. A case management referral has been placed for behavioral health care follow-up should you desire it. Coding Level of Care Code ED Edge Stainer Machine for Chg Fwd Exam Comprehensive Documented by User: Wayne Ambriz DO 05/24/21 01:31 HPI - Psych General: Chief Complaint: Psychiatric Symptoms Stated Complaint: SI Time Seen by Provider: 05/23/21 16:28 PFSH ED PFSH: Medical History Anxiety BPPV (benign paroxysmal positional vertigo) CAD (coronary artery disease) Carotid stenosis Chronic diastolic CHF (congestive heart failure) Chronic left sacroiliac joint pain Claustrophobia Diabetes mellitus Diverticulitis Elevated troponin End stage kidney disease End stage renal disease ESBL (extended spectrum beta-lactamase) producing bacteria infection DAILY (generalized anxiety disorder) Gastroparesis GERD (gastroesophageal reflux disease) Gram-negative bacteremia HTN (hypertension) Hyperlipidemia Hypothyroidism Major depression, recurrent DOROTEO on CPAP PAD (peripheral artery disease) Partial nontraumatic amputation of left foot (~06/2019) Peripheral vascular disease Peritonitis associated with peritoneal dialysis Phantom pain Suicidal ideation TIA (transient ischemic attack) Vitamin D deficiency Surgical History AV (arteriovenous fistula) (~10/2020) H/O hysterectomy with oophorectomy History of appendectomy History of heart artery stent (~2018) LAD, done in [place], [place] History of hysterectomy History of left heart catheterization History of right below knee amputation Peritoneal dialysis catheter in place Removed due to recurrent peritonitis S/P cholecystectomy S/P PICC central line placement (~2019) Status post amputation of toe Family History Denies family history of CAD (coronary artery disease) Clotting disorder Dementia Bleeding disorder Social History Smoking and tobacco status: never smoked Alcohol intake: never Household members: spouse and family History of recent travel: No Course Consultations: Consultation #1: Dashawn Time: 20:07 Vital Signs: Vital signs: Vital Signs Temperature 98.1 F 05/23/21 16:25 Pulse Rate 70 05/23/21 20:43 Respiratory Rate 18 05/23/21 20:43 Blood Pressure 142/81 05/23/21 20:43 Pulse Oximetry 97 05/23/21 20:43 MDM - Psych MDM Narrative: Medical decision making narrative: 56-year-old female checked out to me by Dr. Daniels at shift change. I have spoken with psychiatry about this patient. This is a stable dialysis patient. She admits to depression. She admits to suicidal thoughts in the past, but is not actively suicidal. She has no lethality, and has no plan. Currently, she denies suicidal ideation. Psychiatrist gives her the option in the ER of staying in the neuropsychiatric unit for evaluation and treatment, or discharge home. I spoke at length with the patient. She insists that she is not suicidal, and will be safe at home. She wishes to go home. She will be discharged. Lab Data: Labs: Lab Results 05/23/21 05/23/21 05/23/21 17:47 17:47 17:47 WBC 4.6 10^3/uL 10^3/ uL (4.0-10.0) RBC 4.45 10^6/uL 10^6 /uL (4.1-5.3) Hgb 14.1 g/dL g/dL (11.5-15.3) Hct 42.8 % % (37.0-47.0) MCV 96.2 fl fl (81-99) MCH 31.7 pg pg (28.0-34.0) MCHC 32.9 g/dL g/dL (30.0-36.0) RDW 13.2 % % (12.1-15.1) Plt Count 188 10^3/cmm 10^3 /cmm (130-400) MPV 10.9 fL H fL (7.4-10.4) Neut % (Auto) 72.2 % % Lymph % (Auto) 16.1 % % Travis % (Auto) 7.4 % % Eos % (Auto) 3.9 % % Baso % (Auto) 0.4 % % Neut # (Auto) 3.32 10^3/uL 10^3 /uL (1.8-7.7) Lymph # (Auto) 0.7 10^3/uL L 10^ 3/uL (0.8-4.8) Travis # (Auto) 0.3 10^3/uL 10^3/ uL (0.2-0.9) Eos # (Auto) 0.2 10^3/uL 10^3/ uL (0.0-0.8) Baso # (Auto) 0.0 10^3/uL 10^3/ uL (0.0-0.1) Nucleated RBC % (a uto) 0 % % Nucleated RBCs # 0.0 /100WBC /100W BC Sodium 135 mmol/L L mmol /L (136-145) Potassium 4.7 mmol/L mmol/L (3.5-5.1) Chloride 96 mmol/L L mmol/ L (98-107) Carbon Dioxide 22 mmol/L mmol/L (22-29) Anion Gap 21.7 H (5-19) BUN 13 mg/dL mg/dL (6-20) Creatinine 4.0 mg/dL H mg/dL (0.5-0.9) GFR Calculation 11.5 mL/min L mL/ min (90-130) Glucose 71 mg/dL mg/dL (65-115) Calculated Osmolal ity 279 mOsm/kg L mOs m/kg (285-295) Calcium 8.5 mg/dL mg/dL (8.5-10.5) Total Bilirubin 0.7 mg/dL mg/dL (0.15-1.2) AST 18 U/L U/L (0-32) ALT 13 U/L U/L (0-33) Alkaline Phosphata se 154 IU/L H IU/L (35-105) Total Protein 6.9 g/dL g/dL (6.6-8.7) Albumin 3.8 g/dL g/dL (3.5-5.2) Globulin 3.1 g/dL g/dL (1.3-4.6) Urine Color Urine Appearance Urine pH Ur Specific Gravit y Urine Protein Urine Glucose (UA) Urine Ketones Urine Blood Urine Nitrate Urine Bilirubin Prot Sulfosalicyli c Acd Urine Urobilinogen Ur Leukocyte Yara ase Urine RBC Urine WBC Ur Squamous Epith Cells Amorphous Sediment Urine Bacteria Salicylates < 0.3 mg/dL L mg/ dL (3-10) Urine Opiates Scre en Acetaminophen < 5.0 ug/mL L ug/ mL (10-30) Ur Barbiturates Sc reen Ur Phencyclidine S crn Ur Amphetamines Sc reen U Benzodiazepines Scrn Urine Cocaine Scre en U Marijuana (THC) Screen 05/23/21 05/23/21 19:42 19:42 WBC RBC Hgb Hct MCV MCH MCHC RDW Plt Count MPV Neut % (Auto) Lymph % (Auto) Travis % (Auto) Eos % (Auto) Baso % (Auto) Neut # (Auto) Lymph # (Auto) Travis # (Auto) Eos # (Auto) Baso # (Auto) Nucleated RBC % (a uto) Nucleated RBCs # Sodium Potassium Chloride Carbon Dioxide Anion Gap BUN Creatinine GFR Calculation Glucose Calculated Osmolal ity Calcium Total Bilirubin AST ALT Alkaline Phosphata se Total Protein Albumin Globulin Urine Color Yellow (Yellow) Urine Appearance Clear (CLEAR) Urine pH 9 H (5-7) Ur Specific Gravit y 1.015 (1.005-1.030) Urine Protein 3+ H (Negative) Urine Glucose (UA) 2+ H (Normal) Urine Ketones 1+ H (Negative) Urine Blood 2+ H (Negative) Urine Nitrate Negative (Negative) Urine Bilirubin Neg (Negative) Prot Sulfosalicyli c Acd Positive (Negative) Urine Urobilinogen Norm mg/dL mg/dL (Negative) Ur Leukocyte Yara ase 1+ H (Negative) Urine RBC 10-15 /hpf H /hpf (0-2) Urine WBC >100 /hpf H /hpf (0-5) Ur Squamous Epith Cells 55-80 /hpf H /hpf (0-5) Amorphous Sediment 2+ /hpf /hpf Urine Bacteria 4+ /hpf H /hpf (NONE) Salicylates Urine Opiates Scre en Negative ng/mL ng /mL (Negative) Acetaminophen Ur Barbiturates Sc reen Negative ng/mL ng /mL (Negative) Ur Phencyclidine S crn Negative ng/mL ng /mL (Negative) Ur Amphetamines Sc reen Negative ng/mL ng /mL (Negative) U Benzodiazepines Scrn Negative ng/mL ng /mL (Negative) Urine Cocaine Scre en Negative ng/mL ng /mL (Negative) U Marijuana (THC) Screen Negative ng/mL ng /mL (Negative) Discharge Plan Discharge Patient Disposition: Home Clinical Impression: Depressed affect Condition: Stable Prescriptions: No Action nitroglycerin 0.4 mg tablet, sublingual 0.4 mg SUBLINGUAL Q5M PRN (Reason: Chest Pain) Qty: 25 RF: 6 amlodipine 5 mg tablet 5 mg PO DAILY Qty: 30 RF: 5 clonidine HCl 0.1 mg tablet 0.1 mg PO BID Qty: 60 RF: 5 clopidogrel 75 mg tablet 75 mg PO DAILY@08 Qty: 90 RF: 3 Euthyrox 150 mcg tablet 150 mcg PO DAILY Qty: 30 RF: 3 pantoprazole 40 mg tablet,delayed release (DR/EC) 40 mg PO DAILY@08 Qty: 90 RF: 3 atorvastatin 40 mg tablet 40 mg PO DAILY@20 Qty: 90 RF: 3 (DME) PROSTHETIC SUPPLIES See Rx Instructions .Route .MEDSUPPLY Qty: 1 RF: 0 aspirin 81 mg Tablet,Chewable 81 mg PO DAILY@08 RF: 0 Rocklatan 0.02-0.005 % Drops 1 drp OPHTHALMIC (EYE) DAILY@20 RF: 0 cholecalciferol (vitamin D3) [Vitamin D3] 25 mcg (1,000 unit) Tablet 25 mcg PO DAILY@08 RF: 0 Zofran 4 mg tablet 4 mg PO Q6H PRN (Reason: nausea and vomiting) Qty: 15 RF: 0 multivitamin [Multiple Vitamins] Tablet 1 tab PO DAILY@08 RF: 0 omega 3-mca-kyi-fish oil [Fish Oil] 300-1,000 mg Capsule,Delayed Release(Dr/Ec) 1 cap PO BID@08,20 RF: 0 brimonidine 0.2 % drops 1 drp ophthalmic (eye) BID@08,20 RF: 0 dorzolamide-timolol 22.3-6.8 mg/mL drops 1 drp ophthalmic (eye) BID@08,20 RF: 0 Lantus Solostar U-100 Insulin 100 unit/mL (3 mL) insulin pen 30 unit SUBCUT BID@08,20 Qty: 15 RF: 12 ondansetron 4 mg tablet,disintegrating 4 mg PO Q6H PRN (Reason: nausea and vomiting) Qty: 14 RF: 0 Discharge Orders: Discharge ED (Routine); Ordered 05/23/21 Ordered By: Wayne Ambriz Referrals: Yovany Leonardo MD [Primary Care Provider] - Patient Instructions: Depression (ED) Activity Restrictions/Additional Instructions: Return immediately to the emergency room for any thoughts or wishes to harm your self or anyone else. Return also if you feel unsafe at home. A case management referral has been placed for behavioral health care follow-up should you desire it. Coding Level of Care Code ED Edge Stainer Machine for Chg Fwd Exam Comprehensive
[2021-05-23 17:58] LABS: Basophils % 0.4 %; Eosinophils # 0.2 10^3/uL (0.0-0.8); Eosinophils % 3.9 %; Hematocrit 42.8 % (37.0-47.0); Hemoglobin 14.1 g/dL (11.5-15.3); Lymphocytes # 0.7 10^3/uL (0.8-4.8); Lymphocytes % 16.1 %; Mean Corpuscular HGB Conc 32.9 g/dL (30.0-36.0); Mean Corpuscular Hemoglobin 31.7 pg (28.0-34.0); Mean Corpuscular Volume 96.2 fl (81-99); Mean Platelet Volume 10.9 fL (7.4-10.4); Monocytes # 0.3 10^3/uL (0.2-0.9); Monocytes % 7.4 %; Neutrophils # 3.32 10^3/uL (1.8-7.7); Neutrophils % 72.2 %; Nucleated Red Blood Cells % 0 %; Platelet Count 188 10^3/cmm (130-400); Red Blood Count 4.45 10^6/uL (4.1-5.3); Red Cell Distribution Width 13.2 % (12.1-15.1); White Blood Count 4.6 10^3/uL (4.0-10.0)
[2021-05-23 18:14] LABS: Alanine Aminotransferase 13 U/L (0-33); Albumin Level 3.8 g/dL (3.5-5.2); Alkaline Phosphatase 154 IU/L (35-105); Anion Gap 21.7 (5-19); Aspartate Amino Transferase 18 U/L (0-32); Blood Urea Nitrogen 13 mg/dL (6-20); Calcium 8.5 mg/dL (8.5-10.5); Carbon Dioxide 22 mmol/L (22-29); Chloride 96 mmol/L (98-107); Globulin 3.1 g/dL (1.3-4.6); Glomerular Filtration Rate 11.5 mL/min (90-130); Glucose 71 mg/dL (65-115); Osmolality Calculated 279 mOsm/kg (285-295); Potassium 4.7 mmol/L (3.5-5.1); Sodium 135 mmol/L (136-145); Total Bilirubin 0.7 mg/dL (0.15-1.2); Total Protein 6.9 g/dL (6.6-8.7)
[2021-05-23 18:34] LABS: Acetaminophen < 5.0 ug/mL (10-30); Salicylate < 0.3 mg/dL (3-10)
[2021-05-23 20:13] LABS: Amphetamines Screen Urine Negative (Negative); Barbiturates Screen Urine Negative (Negative); Benzodiazepines Screen Urine Negative (Negative); Cocaine Screen Urine Negative (Negative); Opiate Screen Urine Negative (Negative); PCP Screen Urine Negative (Negative); THC Screen Urine Negative (Negative)
[2021-05-23 20:35] LABS: Add Urine Microscopic? YES; Bilirubin Urine Neg (Negative); Blood Urine 2+ (Negative); Glucose Urine UA 2+ (Normal); Ketones Urine 1+ (Negative); Leukocyte Esterase Urine 1+ (Negative); Nitrate Urine Negative (Negative); Protein Urine 3+ (Negative); Specific Gravity, Urine 1.015 (1.005-1.030); Urine Appearance Clear (CLEAR); Urine Color Yellow (Yellow); Urobilinogen Urine Norm (Negative); pH Urine 9 (5-7)
[2021-05-23 20:37] LABS: Bacteria Urine 4+ /hpf; Squamous Epithelial Cell Urine 55-80 /hpf (0-5); WBC Urine >100 /hpf (0-5)
[2021-05-23 20:38] LABS: Add Urine Culture? No; Amorphous Sediment Urine 2+ /hpf
[2021-05-23 20:43] VITALS: BP 142/81; PULSE 70; RESP 18; O2SAT 97
[2021-05-23 20:50] LABS: Sulfosalicylic Acid Urine Positive (Negative)
== END 2021-05-23 20:47 | disposition home or self-care (01) ==
PROVIDERS: Family Medicine; Emergency Provider Emergency Medicine; PCP Internal Medicine
DX: R45.851 Suicidal ideations (principal); F32.9 Major depressive disorder, single episode, unspecified; E11.22 Type 2 diabetes mellitus with diabetic chronic kidney disease; I12.0 Hypertensive chronic kidney disease with stage 5 chronic kidney disease or end stage renal disease; N18.6 End stage renal disease; Z79.4 Long term (current) use of insulin
CPT/HCPCS: 36415; 80053; 80306; 80307; 81001; 85025; 99283

== ENCOUNTER 2021-07-16 22:50 | Emergency (ER) | payer MEDICARE, MEDICAID, SELFPAY ==
[2021-07-16 23:06] VITALS: BP 202/92; PULSE 68; RESP 18; TEMP 36.9; O2SAT 100; BMI 31.6
--- NOTE | 2021-07-16 23:07 | XRR_ITS ---
PROCEDURE INFORMATION: Exam: XR Chest Exam date and time: 07/16/2021 11:07 PM Age: 56 years old Clinical indication: Shortness of breath; Prior surgery; Surgery date: 6+ months; Surgery type: Heart stents; Patient HX: HTN w/ chest pain; Additional info: Hypertension TECHNIQUE: Imaging protocol: XR of the chest. Views: 1 view. COMPARISON: CR XR chest 1V portable [id number] 04/09/2021 3:39 PM FINDINGS: Tubes, catheters and devices: Right-sided Dialysis catheter tips are present in the superior vena cava. Lungs: Mild prominence of the interstitial markings consistent with CHF/volume overload. Pleural spaces: Unremarkable. No pleural effusion. No pneumothorax. Heart/Mediastinum: There is mild cardiomegaly. Bones/joints: Unremarkable. XR/XR chest 1V portable [id number] IMPRESSION: 1. Mild cardiomegaly. 2. Mild prominence of the interstitial markings consistent with CHF/volume overload.
--- NOTE | 2021-07-16 23:07 | ECG_ITS ---
[facility] Test Date: 2021-07-16 Pat Name: Rizwana Herzog Department: Room: Gender: Female Rn Bone Marrow Transplant: : 1965 Requested By: Epifanio Hernandez Order Number: [id number] Catherine MD: ARIEL TUCKER Measurements Intervals [place] Rate: 70 P: -41 LA: 197 QRS: -60 QRSD: 88 T: 36 QT: 399 QTc: 433 Interpretive Statements SINUS RHYTHM LEFT AXIS DEVIATION [QRS AXIS < -30] POSSIBLE ANTERIOR MYOCARDIAL INFARCTION , PROBABLY OLD [30 ms Q WAVE IN V3/V4, OR R < 0.2 mV IN V4] Compared to ECG 04/09/2021 15:46:47 Sinus bradycardia no longer present Myocardial infarct finding still present Electronically Signed On 07-17-2021 21:49:51 ONLINE JOURNALIST by ARIEL TUCKER [id number]
[2021-07-16 23:22] VITALS: BP 189/85; PULSE 69; RESP 24; O2SAT 98
--- NOTE | 2021-07-16 23:24 | W.ED.CHESTPA ---
HPI - Chest Pain General: Chief Complaint: Chest Pain Stated Complaint: high blood pressure Time Seen by Provider: 07/16/21 23:15 Source: patient Mode of arrival: ambulatory Limitations: no limitations History of Present Illness: 56-year-old female who is a long history of hypertension along with chronic kidney disease is on dialysis Wednesday. She states she did receive dialysis today. States that tonight at home she checked her blood pressure and was in the 200s she became concerned and came up she states that when she got here she did start having some chest pains as well as a sharp pain in the center of her chest. States pain is currently a 4 out of 10 denies any diaphoresis or dyspnea. She denies any worsening improving factors. Associated symptoms: Deny abdominal pain, dyspnea, fever(s), nausea or vomiting Review of Systems Const: Denies: fever(s), chills, body aches or change in appetite Eyes: Denies: blurry vision or eye discomfort ENMT: Denies: throat pain or dental pain Card: Reports: chest pain Resp: Denies: dyspnea GI: Denies: abdominal pain, nausea, vomiting or diarrhea : Denies: dysuria Musc: Denies: neck pain or back pain Skin/Breast: Denies: rash Neuro: Denies: headache(s) Psych: Denies: depression Refugio/Lymph: Denies: easy bruising All/Imm: Denies: urticaria PFSH ED PFSH: Medical History Anxiety BPPV (benign paroxysmal positional vertigo) CAD (coronary artery disease) Carotid stenosis Chronic diastolic CHF (congestive heart failure) Chronic left sacroiliac joint pain Claustrophobia Diabetes mellitus Diverticulitis Elevated troponin End stage kidney disease End stage renal disease ESBL (extended spectrum beta-lactamase) producing bacteria infection DAILY (generalized anxiety disorder) Gastroparesis GERD (gastroesophageal reflux disease) Gram-negative bacteremia HTN (hypertension) Hyperlipidemia Hypothyroidism Major depression, recurrent DOROTEO on CPAP PAD (peripheral artery disease) Partial nontraumatic amputation of left foot (~06/2019) Peripheral vascular disease Peritonitis associated with peritoneal dialysis Phantom pain Suicidal ideation TIA (transient ischemic attack) Vitamin D deficiency Surgical History AV (arteriovenous fistula) (~10/2020) H/O hysterectomy with oophorectomy History of appendectomy History of heart artery stent (~2018) LAD, done in [place], [place] History of hysterectomy History of left heart catheterization History of right below knee amputation Peritoneal dialysis catheter in place Removed due to recurrent peritonitis S/P cholecystectomy S/P PICC central line placement (~2019) Status post amputation of toe Family History Denies family history of CAD (coronary artery disease) Clotting disorder Dementia Bleeding disorder Social History Smoking and tobacco status: never smoked Alcohol intake: never Household members: spouse and family History of recent travel: No Physical Exam Const: COMMON NORMALS: no acute distress, patient oriented x3 and healthy appearing HENMT: COMMON NORMALS: normocephalic and atraumatic HEAD & SCALP: normocephalic and atraumatic Eye: COMMON NORMALS: Equal, round and reactive pupils present and EOMs intact bilaterally PUPIL: Yes Equal, round and reactive pupils present Neck/C-Spine: COMMON NORMALS: full ROM and supple Chest: COMMONS NORMALS: normal inspection of the chest and normal palpation of entire chest wall Resp: COMMON NORMALS: normal respiratory effort, No retractions, No use of accessory muscles and clear to auscultation bilaterally AUSCULTATION: clear to auscultation bilaterally Cardio: COMMON NORMALS: regular rate, regular rhythm and No murmurs present (Cardio) RATE: regular rate RHYTHM: regular rhythm GI: COMMON NORMALS: Normal to inspection, nondistended, normoactive bowel sounds present, Soft to palpation, non-tender and no masses PALPATION: Yes Soft to palpation Extremity: COMMON NORMALS: normal to inspection and full ROM Neuro: COMMON NORMALS: patient oriented x3, moves all extremities and no focal motor deficits Psych: COMMON NORMALS: mental status grossly normal, Normal thought process present and cooperative THOUGHT PROCESS: Normal thought process present Skin: COMMON NORMALS: no rashes or lesions noted and no wounds GENERAL SKIN EXAM: no rashes or lesions noted Course Vital Signs: Vital signs: Vital Signs Temperature 98.4 F 07/16/21 23:06 Pulse Rate 69 07/17/21 01:48 Respiratory Rate 14 07/17/21 01:48 Blood Pressure 173/87 07/17/21 01:48 Pulse Oximetry 97 07/17/21 01:48 MDM - Chest Pain Medical Decision Making Rizwana presents here with hypertension blood pressure here is improving she also has chest pain but repeat troponin here is negative no signs of acute coronary syndrome she stable for discharge to follow-up PCP and return if worsening. Lab Data : 07/16/21 00:01 07/17/21 00:01 Radiology Impressions Chest X-Ray 07/16/21 23:07 IMPRESSION: 1. Mild cardiomegaly. 2. Mild prominence of the interstitial markings consistent with CHF/volume overload. Laboratory Results WBC 6.3 10^3/uL (4.0-10.0) 07/16/21 00:01 RBC 3.58 10^6/uL (4.1-5.3) L 07/16/21 00:01 Hgb 11.3 g/dL (11.5-15.3) L 07/16/21 00:01 Hct 34.1 % (37.0-47.0) L 07/16/21 00:01 MCV 95.3 fl (81-99) 07/16/21 00:01 MCH 31.6 pg (28.0-34.0) 07/16/21 00:01 MCHC 33.1 g/dL (30.0-36.0) 07/16/21 00:01 RDW 13.9 % (12.1-15.1) 07/16/21 00:01 Plt Count 171 10^3/cmm (130-400) 07/16/21 00:01 MPV 10.9 fL (7.4-10.4) H 07/16/21 00:01 Neut % (Auto) 79.9 % 07/16/21 00:01 Lymph % (Auto) 11.5 % 07/16/21 00:01 Smyth % (Auto) 5.6 % 07/16/21 00:01 Eos % (Auto) 2.4 % 07/16/21 00:01 Baso % (Auto) 0.3 % 07/16/21 00:01 Neut # (Auto) 5.00 10^3/uL (1.8-7.7) 07/16/21 00:01 Lymph # (Auto) 0.7 10^3/uL (0.8-4.8) L 07/16/21 00:01 Smyth # (Auto) 0.4 10^3/uL (0.2-0.9) 07/16/21 00:01 Eos # (Auto) 0.2 10^3/uL (0.0-0.8) 07/16/21 00:01 Baso # (Auto) 0.0 10^3/uL (0.0-0.1) 07/16/21 00:01 Nucleated RBC % (auto) 0 % 07/16/21 00:01 Nucleated RBCs # 0.0 /100WBC 07/16/21 00:01 Sodium 136 mmol/L (136-145) 07/17/21 00:01 Potassium 3.7 mmol/L (3.5-5.1) 07/17/21 00:01 Chloride 97 mmol/L (98-107) L 07/17/21 00:01 Carbon Dioxide 28 mmol/L (22-29) 07/17/21 00:01 Anion Gap 14.7 (5-19) 07/17/21 00:01 BUN 11 mg/dL (6-20) 07/17/21 00:01 Creatinine 3.4 mg/dL (0.5-0.9) H 07/17/21 00:01 GFR Calculation 13.9 mL/min (90-130) L 07/17/21 00:01 Glucose 219 mg/dL (65-115) H 07/17/21 00:01 Calculated Osmolality 288 mOsm/kg (285-295) 07/17/21 00:01 Calcium 8.0 mg/dL (8.5-10.5) L 07/17/21 00:01 Total Bilirubin 0.7 mg/dL (0.15-1.2) 07/17/21 00:01 AST 17 U/L (0-32) 07/17/21 00:01 ALT 13 U/L (0-33) 07/17/21 00:01 Alkaline Phosphatase 231 IU/L (35-105) H 07/17/21 00:01 Troponin T Baseline 114 ng/L (0-10) H* 07/17/21 00:01 Troponin T 120 Minute 103.0 ng/L (0-10) H 07/17/21 02:15 Delta Troponin T -11.0 ABS# (0-10) L 07/17/21 02:15 Total Protein 6.5 g/dL (6.6-8.7) L 07/17/21 00:01 Albumin 4.1 g/dL (3.5-5.2) 07/17/21 00:01 Globulin 2.4 g/dL (1.3-4.6) 07/17/21 00:01 EKG Data EKG 1: I personally reviewed and interpreted this EKG as follows: EKG interpretation date: 07/16/21 EKG interpretation time: 23:17 Interpretation: nsr hr [address] or t wave abnormalities qrs 88 qtc 420 EKG 2: I personally reviewed and interpreted this EKG as follows: EKG interpretation date: 07/17/21 EKG interpretation time: 02:51 Interpretation: nsr hr [address] or t wve abnormalities qrs 102 qtc 439 Discharge Plan Discharge Patient Disposition: Home Clinical Impression: Chest pain, HTN (hypertension), End-stage renal disease on hemodialysis Condition: Stable Prescriptions: No Action nitroglycerin 0.4 mg tablet, sublingual 0.4 mg SUBLINGUAL Q5M PRN (Reason: Chest Pain) Qty: 25 6RF amlodipine 5 mg tablet 5 mg PO DAILY Qty: 30 5RF clonidine HCl 0.1 mg tablet 0.1 mg PO BID Qty: 60 5RF clopidogrel 75 mg tablet 75 mg PO DAILY@08 Qty: 90 3RF pantoprazole 40 mg tablet,delayed release (DR/EC) 40 mg PO DAILY@08 Qty: 90 3RF atorvastatin 40 mg tablet 40 mg PO DAILY@20 Qty: 90 3RF (DME) PROSTHETIC SUPPLIES See Rx Instructions .Route .MEDSUPPLY Qty: 1 0RF Rx Instructions: As directed Euthyrox 150 mcg tablet 150 mcg PO DAILY Qty: 30 3RF (DME) pen needle, diabetic [ReliOn Pen [place]] 32 gauge x 5/32 needle See Rx Instructions .ROUTE .MEDSUPPLY Qty: 100 6RF Rx Instructions: use for insulin injections aspirin 81 mg Tablet,Chewable 81 mg PO DAILY@08 0RF Rocklatan 0.02-0.005 % Drops 1 drp OPHTHALMIC (EYE) DAILY@20 0RF Rx Instructions: USE IN BOTH EYES cholecalciferol (vitamin D3) [Vitamin D3] 25 mcg (1,000 unit) Tablet 25 mcg PO DAILY@08 0RF Zofran 4 mg tablet 4 mg PO Q6H PRN (Reason: nausea and vomiting) Qty: 15 0RF multivitamin [Multiple Vitamins] Tablet 1 tab PO DAILY@08 0RF omega 7-mvh-zcw-fish oil [Fish Oil] 300-1,000 mg Capsule,Delayed Release(Dr/Ec) 1 cap PO BID@08,20 0RF brimonidine 0.2 % drops 1 drp ophthalmic (eye) BID@08,20 0RF Rx Instructions: USE IN BOTH EYES dorzolamide-timolol 22.3-6.8 mg/mL drops 1 drp ophthalmic (eye) BID@08,20 0RF Rx Instructions: USE IN BOTH EYES Lantus Solostar U-100 Insulin 100 unit/mL (3 mL) insulin pen 30 unit SUBCUT BID@08,20 Qty: 15 12RF ondansetron 4 mg tablet,disintegrating 4 mg PO Q6H PRN (Reason: nausea and vomiting) Qty: 14 0RF Discharge Orders: Discharge ED (Routine); Ordered 07/17/21 Ordered By: Carlos A Jeronimo Referrals: Yovany Leonardo MD [Primary Care Provider] - Discharge Diet: Advance as tolerated Discharge Activity: Resume usual activity Patient Instructions: Chest Pain (ED), Hypertension (ED) Coding Level of Care Code ED Marketing Campaign Analyst for Maris Fwd Exam Comprehensive
[2021-07-17 00:08] LABS: Basophils % 0.3 %; Eosinophils # 0.2 10^3/uL (0.0-0.8); Eosinophils % 2.4 %; Hematocrit 34.1 % (37.0-47.0); Hemoglobin 11.3 g/dL (11.5-15.3); Lymphocytes # 0.7 10^3/uL (0.8-4.8); Lymphocytes % 11.5 %; Mean Corpuscular HGB Conc 33.1 g/dL (30.0-36.0); Mean Corpuscular Hemoglobin 31.6 pg (28.0-34.0); Mean Corpuscular Volume 95.3 fl (81-99); Mean Platelet Volume 10.9 fL (7.4-10.4); Monocytes # 0.4 10^3/uL (0.2-0.9); Monocytes % 5.6 %; Neutrophils % 79.9 %; Nucleated Red Blood Cells % 0 %; Platelet Count 171 10^3/cmm (130-400); Red Blood Count 3.58 10^6/uL (4.1-5.3); Red Cell Distribution Width 13.9 % (12.1-15.1); White Blood Count 6.3 10^3/uL (4.0-10.0)
[2021-07-17 00:29] VITALS: BP 191/90; PULSE 70; RESP 17; O2SAT 93
[2021-07-17] MEDS: labetalol 5 mg/mL SDV 20mL 10 MG IVP ×2 (00:31→01:47)
[2021-07-17 00:32] VITALS: RESP 15; O2SAT 90
[2021-07-17] MEDS: ondansetron 2 mg/ML SDV 2 mL 4 MG IVP (00:32)
[2021-07-17] MEDS: morphine 4 mg/mL SDV 1 mL IVP (00:32)
[2021-07-17 00:35] LABS: Alanine Aminotransferase 13 U/L (0-33); Albumin Level 4.1 g/dL (3.5-5.2); Alkaline Phosphatase 231 IU/L (35-105); Anion Gap 14.7 (5-19); Aspartate Amino Transferase 17 U/L (0-32); Blood Urea Nitrogen 11 mg/dL (6-20); Carbon Dioxide 28 mmol/L (22-29); Chloride 97 mmol/L (98-107); Globulin 2.4 g/dL (1.3-4.6); Glomerular Filtration Rate 13.9 mL/min (90-130); Glucose 219 mg/dL (65-115); Osmolality Calculated 288 mOsm/kg (285-295); Potassium 3.7 mmol/L (3.5-5.1); Sodium 136 mmol/L (136-145); Total Bilirubin 0.7 mg/dL (0.15-1.2); Total Protein 6.5 g/dL (6.6-8.7)
[2021-07-17 00:37] LABS: Troponin(5th) Baseline 114 ng/L (0-10)
[2021-07-17 00:38] VITALS: BP 193/93; PULSE 72; RESP 13; O2SAT 98
--- NOTE | 2021-07-17 01:15 | ECG_ITS ---
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: : 1965 Requested By: Epifanio Hernandez Order Number: [id number] Catherine MD: ARIEL TUCKER Measurements Intervals [place] Rate: 66 P: 104 NC: 201 QRS: -56 QRSD: 102 T: 48 QT: 425 QTc: 448 Interpretive Statements SINUS RHYTHM LEFT AXIS DEVIATION [QRS AXIS < -30] POSSIBLE ANTERIOR MYOCARDIAL INFARCTION , PROBABLY OLD [30 ms Q WAVE IN V3/V4, OR R < 0.2 mV IN V4] Compared to ECG 07/16/2021 23:17:52 No significant changes Electronically Signed On 07-17-2021 21:49:47 SECURITY ARCHITECT by ARIEL TUCKER [id number]
[2021-07-17 01:48] VITALS: BP 173/87; PULSE 69; RESP 14; O2SAT 97
[2021-07-17] MEDS: hyDRALAzine 20 mg/mL INJ 1 mL 10 MG IVP (03:02)
[2021-07-17 03:05] VITALS: BP 189/90; PULSE 66; RESP 13; O2SAT 100
== END 2021-07-17 03:23 | disposition home or self-care (01) ==
PROVIDERS: Nurse Practitioner Family; Emergency Provider Emergency Medicine; PCP Internal Medicine
DX: I13.2 Hypertensive heart and chronic kidney disease with heart failure and with stage 5 chronic kidney disease, or end stage renal disease (principal); E11.22 Type 2 diabetes mellitus with diabetic chronic kidney disease; N18.6 End stage renal disease; I50.32 Chronic diastolic (congestive) heart failure; Z99.2 Dependence on renal dialysis; R07.9 Chest pain, unspecified; Z79.02 Long term (current) use of antithrombotics/antiplatelets; Z79.82 Long term (current) use of aspirin; Z79.4 Long term (current) use of insulin; I25.10 Atherosclerotic heart disease of native coronary artery without angina pectoris; E78.5 Hyperlipidemia, unspecified; Z86.73 Personal history of transient ischemic attack (TIA), and cerebral infarction without residual deficits
CPT/HCPCS: 71045; 80053; 84484; 85025; 93005; 96374; 96375; 96376; 99284; J0360; J2270; J2405; J3490

== ENCOUNTER 2021-07-25 10:05 | Outpatient (CLI) | payer MEDICARE, MEDICAID, SELFPAY ==
[2021-07-25 11:20] LABS: Chol HDL Ratio 2.69 mg/dL (0.0-4.40); Cholesterol 97 mg/dL (0-200); Free T4 Free Thyroxine 1.44 ng/dL (0.82-1.77); HDL Cholesterol 36 mg/dL (60-100); LDL Cholesterol Calculated 48 mg/dL (50-129); LDL HDL Ratio 1.33 RATIO (0.00-3.22); Thyroid Stimulating Hormone 4.77 uIU/mL (0.27-4.20); Triglycerides 66 mg/dL (0-150)
[2021-07-25 11:35] LABS: Estmated Average Glucose 123; Hemoglobin A1C 5.9 % (4.0-6.0)
[2021-07-25 13:21] LABS: Calcium 8.1 mg/dL (8.5-10.5)
[2021-07-25 13:28] LABS: Parathyroid Hormone 979.1 pg/mL (15-65)
[2021-07-25 13:46] LABS: 25 Hydroxy Vitamin D 37 ng/mL (30-100)
== END 2021-07-25 10:06 | disposition home or self-care (01) ==
PROVIDERS: PCP Family Medicine; Visit Provider Family Medicine
DX: R79.89 Other specified abnormal findings of blood chemistry (principal); E03.9 Hypothyroidism, unspecified; E11.9 Type 2 diabetes mellitus without complications; Z79.4 Long term (current) use of insulin; I12.0 Hypertensive chronic kidney disease with stage 5 chronic kidney disease or end stage renal disease; N18.5 Chronic kidney disease, stage 5; E78.2 Mixed hyperlipidemia; I25.10 Atherosclerotic heart disease of native coronary artery without angina pectoris; I50.32 Chronic diastolic (congestive) heart failure; E83.51 Hypocalcemia; N18.9 Chronic kidney disease, unspecified
CPT/HCPCS: 80061; 82306; 82310; 83036; 83970; 84439; 84443

== ENCOUNTER 2021-08-05 18:09 | Emergency (ER) | payer MEDICARE, MEDICAID, SELFPAY ==
[2021-08-05 18:16] VITALS: BP 161/73; PULSE 64; RESP 16; TEMP 37.1; O2SAT 95; BMI 31.6
[2021-08-05 18:24] VITALS: BP 180/101; PULSE 65; RESP 14; O2SAT 94
--- NOTE | 2021-08-05 18:26 | XRR_ITS ---
PROCEDURE INFORMATION: Exam: XR Chest Exam date and time: 08/05/2021 6:26 PM Age: 56 years old Clinical indication: Chest wall pain; Additional info: Cp TECHNIQUE: Imaging protocol: XR of the chest. Views: 1 view. COMPARISON: CR (CHEST, ) 07/16/2021 11:27 PM FINDINGS: Tubes, catheters and devices: Right central venous catheter tip in the superior vena cava. Lungs: Bilateral mid to lower lung field airspace infiltrates. Pleural spaces: Moderate right and small left pleural effusion. Heart/Mediastinum: Cardiomegaly. Bones/joints: Unremarkable. XR/XR chest 1V portable [id number] IMPRESSION: 1. Right central venous catheter tip in the superior vena cava. 2. Moderate right and small left pleural effusion. 3. Cardiomegaly. 4. Bilateral mid to lower lung field airspace infiltrates.
[2021-08-05 18:44] LABS: Basophils % 0.5 %; Eosinophils # 0.2 10^3/uL (0.0-0.8); Eosinophils % 4.1 %; Hematocrit 35.6 % (37.0-47.0); Hemoglobin 11.4 g/dL (11.5-15.3); Lymphocytes # 0.8 10^3/uL (0.8-4.8); Lymphocytes % 13.5 %; Mean Platelet Volume 11.2 fL (7.4-10.4); Monocytes # 0.4 10^3/uL (0.2-0.9); Monocytes % 6.7 %; Neutrophils # 4.22 10^3/uL (1.8-7.7); Neutrophils % 74.8 %; Nucleated Red Blood Cells % 0 %; Platelet Count 184 10^3/cmm (130-400); Red Blood Count 3.56 10^6/uL (4.1-5.3); Red Cell Distribution Width 14.8 % (12.1-15.1); White Blood Count 5.6 10^3/uL (4.0-10.0)
--- NOTE | 2021-08-05 18:47 | W.ED.CHESTPA ---
HPI - Chest Pain General: Chief Complaint: Chest Pain Stated Complaint: Chest Pains\SOB Time Seen by Provider: 08/05/21 18:38 History of Present Illness: 56-year-old who is on dialysis and has history of CAD presents with chest pain. Reports pain started 3 PM. Reports it is sharp and nonradiating. Denies radiation to back specifically. Does report shortness of breath. States she missed dialysis yesterday. Denies any lower extremity pain or swelling in her left lower extremity. Does have a right lower extremity amputation with prosthesis. Review of Systems Narrative: - CONSTITUTIONAL: Denies weight loss, fever and chills. - HEENT: Denies changes in vision and hearing. - RESPIRATORY: As above - CV: As above - GI: Denies abdominal pain, nausea, vomiting and diarrhea. - : Denies dysuria and urinary frequency. - MSK: Denies myalgia and joint pain. - SKIN: Denies rash and pruritus. - NEUROLOGICAL: Denies headache, weakness, numbness and syncope. - PSYCHIATRIC: Denies suicidal ideation PFS ED PFSH: Medical History Anxiety BPPV (benign paroxysmal positional vertigo) CAD (coronary artery disease) Carotid stenosis Chronic diastolic CHF (congestive heart failure) Chronic left sacroiliac joint pain Claustrophobia Diabetes mellitus Diverticulitis Elevated troponin End stage kidney disease End stage renal disease ESBL (extended spectrum beta-lactamase) producing bacteria infection DAILY (generalized anxiety disorder) Gastroparesis GERD (gastroesophageal reflux disease) Gram-negative bacteremia HTN (hypertension) Hyperlipidemia Hypothyroidism Major depression, recurrent DOROTEO on CPAP PAD (peripheral artery disease) Partial nontraumatic amputation of left foot (~06/2019) Peripheral vascular disease Peritonitis associated with peritoneal dialysis Phantom pain Suicidal ideation TIA (transient ischemic attack) Vitamin D deficiency Surgical History AV (arteriovenous fistula) (~10/2020) H/O hysterectomy with oophorectomy History of appendectomy History of heart artery stent (~2018) LAD, done in [place], [place] History of hysterectomy History of left heart catheterization History of right below knee amputation Peritoneal dialysis catheter in place Removed due to recurrent peritonitis S/P cholecystectomy S/P PICC central line placement (~2019) Status post amputation of toe Family History Denies family history of CAD (coronary artery disease) Clotting disorder Dementia Bleeding disorder Social History Smoking and tobacco status: never smoked Alcohol intake: never Household members: spouse and family History of recent travel: No Physical Exam Narrative: EXAM NARRATIVE: - GENERAL: Alert and oriented x 3. No acute distress. Well-nourished. - EYES: EOMI. Anicteric. - HENT: Atraumatic, no C-spine tenderness. Moist mucous membranes. No scleral icterus. No cervical lymphadenopathy. - LUNGS: Clear to auscultation bilaterally. No accessory muscle use. Equal lung sounds bilaterally. No respiratory distress. - CARDIOVASCULAR: Regular rate and rhythm. No murmur. No JVD. - ABDOMEN: Soft, non-tender and non-distended. Negative CVA tenderness bilaterally, no rebound or guarding, negative Call sign. No palpable masses. - EXTREMITIES: Left upper extremity dialysis fistula with palpable thrill and audible bruit. No erythema or tenderness. Right lower extremity amputation with prosthesis. - SKIN: No rashes or lesions. Warm. - NEUROLOGIC: No meningismus or focal neurological deficits. CN II-XII grossly intact. - PSYCHIATRIC: Cooperative. Appropriate mood and affect. Course Vital Signs: Vital signs: Vital Signs Temperature 98.8 F 08/05/21 18:16 Pulse Rate 66 08/05/21 19:12 Respiratory Rate 14 08/05/21 19:12 Blood Pressure 179/82 08/05/21 19:12 Pulse Oximetry 94 08/05/21 19:12 MDM - Chest Pain Medical Decision Making 56-year-old female presents with chest pain. Has longstanding history of similar complaints in the past. EKG does not reveal any acute ischemic change. High-sensitivity troponin is elevated to 100 but this is around her baseline and not changing on 2-hour repeat. D-dimer is elevated but CTA does not reveal signs of PE. Otherwise lab work unremarkable. Discussed with nephrology and they recommended she follow-up at her next scheduled dialysis visit. Potassium is 4.2. At this time I believe patient would be safe for discharge and outpatient follow-up. Return precautions provided. Plan was reviewed with the patient who expressed understanding. Questions answered. Patient will follow up with PCP. Patient discharged in stable condition. Lab Data : 08/05/21 18:40 08/05/21 18:40 Radiology Impressions Chest X-Ray 08/05/21 18:26 IMPRESSION: 1. Right central venous catheter tip in the superior vena cava. 2. Moderate right and small left pleural effusion. 3. Cardiomegaly. 4. Bilateral mid to lower lung field airspace infiltrates. Chest CTA 08/05/21 21:40 IMPRESSION: 1. No pulmonary embolism. 2. Small bilateral pleural effusions. 3. Complete compressive atelectasis of the right lower lobe. Partial atelectasis of the left lower lobe. Laboratory Results WBC 5.6 10^3/uL (4.0-10.0) 08/05/21 18:40 RBC 3.56 10^6/uL (4.1-5.3) L 08/05/21 18:40 Hgb 11.4 g/dL (11.5-15.3) L 08/05/21 18:40 Hct 35.6 % (37.0-47.0) L 08/05/21 18:40 MCV 100.0 fl (81-99) H 08/05/21 18:40 MCH 32.0 pg (28.0-34.0) 08/05/21 18:40 MCHC 32.0 g/dL (30.0-36.0) 08/05/21 18:40 RDW 14.8 % (12.1-15.1) 08/05/21 18:40 Plt Count 184 10^3/cmm (130-400) 08/05/21 18:40 MPV 11.2 fL (7.4-10.4) H 08/05/21 18:40 Neut % (Auto) 74.8 % 08/05/21 18:40 Lymph % (Auto) 13.5 % 08/05/21 18:40 Ware % (Auto) 6.7 % 08/05/21 18:40 Eos % (Auto) 4.1 % 08/05/21 18:40 Baso % (Auto) 0.5 % 08/05/21 18:40 Neut # (Auto) 4.22 10^3/uL (1.8-7.7) 08/05/21 18:40 Lymph # (Auto) 0.8 10^3/uL (0.8-4.8) 08/05/21 18:40 Ware # (Auto) 0.4 10^3/uL (0.2-0.9) 08/05/21 18:40 Eos # (Auto) 0.2 10^3/uL (0.0-0.8) 08/05/21 18:40 Baso # (Auto) 0.0 10^3/uL (0.0-0.1) 08/05/21 18:40 Nucleated RBC % (auto) 0 % 08/05/21 18:40 Nucleated RBCs # 0.0 /100WBC 08/05/21 18:40 D-Dimer 1.52 ug/mIFEU (0-0.59) H 08/05/21 21:07 Sodium 142 mmol/L (136-145) 08/05/21 18:40 Potassium 4.2 mmol/L (3.5-5.1) 08/05/21 18:40 Chloride 101 mmol/L (98-107) 08/05/21 18:40 Carbon Dioxide 26 mmol/L (22-29) 08/05/21 18:40 Anion Gap 19.2 (5-19) H 08/05/21 18:40 BUN 41 mg/dL (6-20) H 08/05/21 18:40 Creatinine 7.3 mg/dL (0.5-0.9) H* 08/05/21 18:40 GFR Calculation 5.8 mL/min (90-130) L 08/05/21 18:40 Glucose 76 mg/dL (65-115) 08/05/21 18:40 Calculated Osmolality 303 mOsm/kg (285-295) H 08/05/21 18:40 Calcium 8.2 mg/dL (8.5-10.5) L 08/05/21 18:40 Total Bilirubin 0.6 mg/dL (0.15-1.2) 08/05/21 18:40 AST 15 U/L (0-32) 08/05/21 18:40 ALT 12 U/L (0-33) 08/05/21 18:40 Alkaline Phosphatase 195 IU/L (35-105) H 08/05/21 18:40 Troponin T Baseline 117 ng/L (0-10) H* 08/05/21 18:40 Troponin T 120 Minute 110.4 ng/L (0-10) H 08/05/21 21:07 Delta Troponin T -6.6 ABS# (0-10) L 08/05/21 21:07 Total Protein 6.3 g/dL (6.6-8.7) L 08/05/21 18:40 Albumin 4.1 g/dL (3.5-5.2) 08/05/21 18:40 Globulin 2.2 g/dL (1.3-4.6) 08/05/21 18:40 Lipase 21 U/L (13-60) 08/05/21 18:37 EKG Data EKG 1: Other EKG comments: Sinus rhythm rate of 64, no sign of acute ischemia or other acute abnormality. Discharge Plan Discharge Patient Disposition: Home Clinical Impression: Chest pain Condition: Stable Prescriptions: No Action nitroglycerin 0.4 mg tablet, sublingual 0.4 mg SUBLINGUAL Q5M PRN (Reason: Chest Pain) Qty: 25 6RF amoxicillin 250 mg capsule 250 mg PO BID 0RF escitalopram oxalate 20 mg tablet 20 mg PO DAILY 0RF amlodipine 10 mg tablet 10 mg PO DAILY 30 Days Qty: 30 2RF clonidine HCl 0.1 mg tablet 0.1 mg PO BID Qty: 60 5RF pantoprazole 40 mg tablet,delayed release (DR/EC) 40 mg PO DAILY@08 Qty: 90 3RF atorvastatin 40 mg tablet 40 mg PO DAILY@20 Qty: 90 3RF (DME) PROSTHETIC SUPPLIES See Rx Instructions .Route .MEDSUPPLY Qty: 1 0RF Rx Instructions: As directed Euthyrox 150 mcg tablet 150 mcg PO DAILY Qty: 30 3RF (DME) pen needle, diabetic [ReliOn Pen [place]] 32 gauge x 5/32 needle See Rx Instructions .ROUTE .MEDSUPPLY Qty: 100 6RF Rx Instructions: use for insulin injections Lantus Solostar U-100 Insulin 100 unit/mL (3 mL) insulin pen 30 unit SUBCUT BID@08,20 Qty: 15 12RF aspirin 81 mg Tablet,Chewable 81 mg PO DAILY@08 0RF Rocklatan 0.02-0.005 % Drops 1 drp OPHTHALMIC (EYE) DAILY@20 0RF Rx Instructions: USE IN BOTH EYES cholecalciferol (vitamin D3) [Vitamin D3] 25 mcg (1,000 unit) Tablet 25 mcg PO DAILY@08 0RF Zofran 4 mg tablet 4 mg PO Q6H PRN (Reason: nausea and vomiting) Qty: 15 0RF multivitamin [Multiple Vitamins] Tablet 1 tab PO DAILY@08 0RF omega 2-ohx-mro-fish oil [Fish Oil] 300-1,000 mg Capsule,Delayed Release(Dr/Ec) 1 cap PO BID@08,20 0RF brimonidine 0.2 % drops 1 drp ophthalmic (eye) BID@08,20 0RF Rx Instructions: USE IN BOTH EYES dorzolamide-timolol 22.3-6.8 mg/mL drops 1 drp ophthalmic (eye) BID@08,20 0RF Rx Instructions: USE IN BOTH EYES Discharge Orders: Discharge ED (Routine); Ordered 08/05/21 Ordered By: Kael Mensah Referrals: Jacob Sharp DO [Primary Care Provider] - 1-3 days Patient Instructions: Chest Pain (ED), Opioid Safety Coding Level of Care Code ED Insurance Account Assistant for Maris Braden
[2021-08-05] MEDS: aspirin 81 mg Chew Tablet 324 MG PO (18:58)
[2021-08-05] MEDS: nitroglycerin 0.4 mg sublingual Tablet SUBLINGUAL ×2 (19:09→19:14)
[2021-08-05 19:11] VITALS: O2SAT 96
[2021-08-05 19:12] VITALS: BP 179/82; PULSE 66; RESP 14; O2SAT 94
[2021-08-05 19:30] LABS: Alanine Aminotransferase 12 U/L (0-33); Albumin Level 4.1 g/dL (3.5-5.2); Alkaline Phosphatase 195 IU/L (35-105); Anion Gap 19.2 (5-19); Aspartate Amino Transferase 15 U/L (0-32); Blood Urea Nitrogen 41 mg/dL (6-20); Calcium 8.2 mg/dL (8.5-10.5); Carbon Dioxide 26 mmol/L (22-29); Chloride 101 mmol/L (98-107); Globulin 2.2 g/dL (1.3-4.6); Glomerular Filtration Rate 5.8 mL/min (90-130); Glucose 76 mg/dL (65-115); Osmolality Calculated 303 mOsm/kg (285-295); Potassium 4.2 mmol/L (3.5-5.1); Sodium 142 mmol/L (136-145); Total Bilirubin 0.6 mg/dL (0.15-1.2); Total Protein 6.3 g/dL (6.6-8.7)
[2021-08-05 19:33] LABS: Lipase 21 U/L (13-60)
[2021-08-05 19:33] LABS: Troponin(5th) Baseline 117 ng/L (0-10)
--- NOTE | 2021-08-05 20:26 | ECG_ITS ---
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 Measurements Intervals [place] Rate: 64 P: 80 SC: 192 QRS: -54 QRSD: 84 T: 74 QT: 438 QTc: 453 Interpretive Statements SINUS RHYTHM INDETERMINATE AXIS LOW QRS VOLTAGE IN EXTREMITY LEADS [QRS DEFLECTION < 0.5 mV IN LIMB LEADS] POSSIBLE ANTERIOR MYOCARDIAL INFARCTION , PROBABLY OLD [30 ms Q WAVE IN V3/V4, OR R < 0.2 mV IN V4] Compared to ECG 07/17/2021 02:51:44 Indeterminate axis now present Low QRS voltage now present Left-axis deviation no longer present Myocardial infarct finding still present Electronically Signed On 08-06-2021 5:47:58 [employer] RETAILER SALES CONSULTANT by Soraya Ignacio M.D. [id number]
[2021-08-05 21:29] LABS: D Dimer 1.52 ug/mIFEU (0-0.59)
--- NOTE | 2021-08-05 21:40 | CTR_ITS ---
PROCEDURE INFORMATION: Exam: CTA Chest With Contrast Exam date and time: 08/05/2021 9:40 PM Age: 56 years old Clinical indication: Dyspnea; Additional info: Pe TECHNIQUE: Imaging protocol: Computed tomographic angiography of the chest with contrast. 3D rendering (Not supervised by radiologist): MIP and/or 3D reconstructed images were created by the technologist. Radiation optimization: All CT scans at this facility use at least one of these dose optimization techniques: automated exposure control; mA and/or kV adjustment per patient size (includes targeted exams where dose is matched to clinical indication); or iterative reconstruction. Contrast material: OMNI 350; Contrast volume: 58 ml; Contrast route: INTRAVENOUS (IV); COMPARISON: CT angio chest PE protcl [id number] 12/07/2020 2:39 PM RADIATION DOSE METRICS: Total DLP (mGy-cm): 460.21 FINDINGS: Tubes, catheters and devices: There is a right internal jugular central venous catheter appropriately positioned with the tip in the lower SVC near the cavoatrial junction. Pulmonary arteries: The pulmonary arteries are adequately opacified for evaluation to the subsegmental level. There is no filling defect to suggest embolism. Aorta: The thoracic aorta is normal. There is no aneurysm or dissection. Lungs: There is complete compressive atelectasis of the right lower lobe. There is partial atelectasis of the left lower lobe. There is no consolidation. Pleural spaces: Small bilateral pleural effusions. Heart: There is mild cardiac enlargement. There is moderate coronary artery calcification. There is no pericardial effusion. Lymph nodes: There is no mediastinal or hilar lymphadenopathy. Intraperitoneal space: Visible structures in the upper abdomen are unremarkable. Bones/joints: Bones are unremarkable. Soft tissues: The extrathoracic soft tissues are unremarkable. CT/CT angio chest PE protcl [id number] IMPRESSION: 1. No pulmonary embolism. 2. Small bilateral pleural effusions. 3. Complete compressive atelectasis of the right lower lobe. Partial atelectasis of the left lower lobe.
[2021-08-05 21:46] LABS: Troponin 5 2HR Delta -6.6 ABS# (0-10)
[2021-08-05 21:47] LABS: Troponin 5 2HR 110.4 ng/L (0-10)
[2021-08-05] MEDS: iohexol 350 mg/mL 100 mL Btl IV (22:10)
[2021-08-05 22:30] VITALS: BP 156/75; PULSE 61; RESP 16; TEMP 37.1; O2SAT 93
[2021-08-05 23:09] VITALS: BP 156/75; PULSE 61; RESP 16; TEMP 37.1; O2SAT 93
== END 2021-08-05 23:11 | disposition home or self-care (01) ==
PROVIDERS: Emergency Medicine; Emergency Provider Emergency Medicine; PCP Family Medicine
DX: R07.9 Chest pain, unspecified (principal); Z79.82 Long term (current) use of aspirin; Z79.4 Long term (current) use of insulin; E11.22 Type 2 diabetes mellitus with diabetic chronic kidney disease; I13.2 Hypertensive heart and chronic kidney disease with heart failure and with stage 5 chronic kidney disease, or end stage renal disease; I50.32 Chronic diastolic (congestive) heart failure; N18.6 End stage renal disease; I25.10 Atherosclerotic heart disease of native coronary artery without angina pectoris; E78.5 Hyperlipidemia, unspecified; Z86.73 Personal history of transient ischemic attack (TIA), and cerebral infarction without residual deficits
CPT/HCPCS: 36415; 71045; 71275; 80053; 83690; 84484; 85025; 85378; 93005; 99283; Q9967

== ENCOUNTER → 2021-08-12 11:10 | Outpatient (BNVA) | payer MEDICARE, MEDICAID, SELFPAY | PROVIDERS: PCP Family Medicine; Visit Provider Internal Medicine Cardiovascular Disease | DX: I25.10 Atherosclerotic heart disease of native coronary artery without angina pectoris (principal); I65.23 Occlusion and stenosis of bilateral carotid arteries; E78.5 Hyperlipidemia, unspecified | CPT/HCPCS: 99214 ==

== ENCOUNTER 2021-09-02 09:44 | Inpatient (IN) | payer MEDICARE, MEDICAID, SELFPAY ==
[2021-09-02] VITALS (11 sets, daily range): BP systolic 134–202; BP diastolic 63–102; PULSE 70–76; RESP 14–23; TEMP 22.7–36.8; O2SAT 91–97; BMI 31.6
--- NOTE | 2021-09-02 | USCV_ITS ---
Transthoracic Echo Limited Rizwana Herzog Age: 56 Gender: F : 1965 Exam Date: 09/02/2021 20:17 Ordering Phys: Neeta Jeronimo MD Technologist: BRIGID Exam Location: [facility] – [place] Indication: Acute Fluid Overload BP: 149 / 71 HR: 73 Rhythm: Sinus Technical Quality: Adequate MEASUREMENTS (Male / Female) Normal Values 2D ECHO LV Diastolic Diameter PLAX 4.7 cm 4.2 - 5.9 / 3.9 - 5.3 cm LV Systolic Diameter PLAX 3.0 cm IVS Diastolic Thickness 1.4 cm 0.6 - 1.0 / 0.6 - 0.9 cm IVS Systolic Thickness 2.1 cm LVPW Diastolic Thickness 1.6 cm 0.6 - 1.0 / 0.6 - 0.9 cm LVPW Systolic Thickness 2.2 cm LVOT Diameter 1.9 cm LV Ejection Fraction 2D Teich 65.0 % LV Ejection Fraction MOD 2C 73.6 % LV Ejection Fraction 2C AL 75.6 % LA Diameter 4.2 cm LA Width 4.0 cm LA Height 5.5 cm RA Width 4.4 cm RA Height 5.1 cm Aorta at Sinotubular Diameter 2.0 cm M-MODE Aortic Annulus Diameter 2.7 cm LA Ao Ratio MM 1.8 MV E Point Septal Separation 0.7 cm FINDINGS Left Ventricle Normal left ventricular size, systolic function and wall thickness, with no regional wall motion abnormalities. Normal left ventricular wall thickness. Normal diastolic filling pattern. Left ventricular ejection fraction is estimated at 60 %. Right Ventricle The right ventricle is normal in size and function. Right Atrium The right atrium is normal in size. Left Atrium The left atrium is normal in size. Mitral Valve Structurally normal mitral valve without significant stenosis or prolapse. There is no mitral regurgitation. Aortic Valve Structurally normal aortic valve without significant sclerosis or stenosis. There is no aortic regurgitation. Tricuspid Valve Structurally normal tricuspid valve without significant stenosis or regurgitation. Pulmonary artery systolic pressure is normal. Pulmonic Valve Structurally normal pulmonic valve without significant stenosis. There is no pulmonic regurgitation. Pericardium Normal pericardium without effusion. Aorta Normal ascending aorta dimension. CONCLUSIONS Normal transthoracic echocardiogram. Dr. Manny Tan MD (Electronically Signed) Final Date: 03 September 2021 08:53 S
--- NOTE | 2021-09-02 10:32 | XR_ITS ---
WS: [id number] Exam: XR chest 1V portable [id number] Date/Time of Exam: 09/02/2021 10:34 AM Reason For Exam: sob Comparison 08/05/2021. Bibasal airspace infiltrates are noted with bibasal pleural effusions. The heart is enlarged. A doubl e lumen right-sided dialysis catheter ends in the lower one third of the SVC. No pneumothorax seen. T he superior mediastinum is normal in contour. Bony structures are intact. Pulmonary vascular congesti on. XR/XR chest 1V portable [id number] IMPRESSION: 1. Cardiac enlargement with pulmonary vascular congestion suggesting chronic CH F. 2. Bibasal airspace infiltrates and pleural effusions. This is most marked on t he right.
--- NOTE | 2021-09-02 10:32 | ECG_ITS ---
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 Measurements Intervals [place] Rate: 70 P: -52 CT: 197 QRS: -46 QRSD: 99 T: 58 QT: 406 QTc: 440 Interpretive Statements SINUS RHYTHM LEFT AXIS DEVIATION [QRS AXIS < -30] POSSIBLE ANTERIOR MYOCARDIAL INFARCTION , PROBABLY OLD [30 ms Q WAVE IN V3/V4, OR R < 0.2 mV IN V4] Compared to ECG 08/05/2021 18:21:59 Left-axis deviation now present Indeterminate axis no longer present Myocardial infarct finding still present Electronically Signed On 09-03-2021 16:58:33 CDT by Manny Tan M.D. [email or web address]
--- NOTE | 2021-09-02 10:40 | W.ED.SOB ---
Documented by User: SINAI Ozuna 09/02/21 16:21 HPI - SOB/Dyspnea General: Chief Complaint: Shortness of Breath/Dyspnea Stated Complaint: SOB; bp issues Time Seen by Provider: 09/02/21 10:05 History of Present Illness: HPI Narrative: Patient is a 56-year-old female comes to the ED with shortness of breath. Patient has a past medical history of CKD and is on dialysis, CHF, hypertension, hypothyroidism and diabetes. Patient says her symptoms started this morning when she woke. She has shortness of breath at rest and it worsens with any exertion. Denies any fever, chest pain cough, hemoptysis or palpitations. She also reports feeling some nausea and had an episode of emesis this morning. Patient is not on any oxygen at home. Here in the ED she is currently on 3 L and her O2 saturation is 91%. Associated symptoms: Reports nausea and vomiting; Deny abdominal pain, chest pain, fever(s), orthopnea or palpitations Review of Systems Const: Denies: fever(s), chills or fatigue Eyes: Denies: change in vision or eye discomfort ENMT: Denies: throat pain, odynophagia, nasal discharge or nasal congestion Card: Denies: chest pain, palpitations, edema, swelling of feet/ankles, dyspnea on exertion or orthopnea Resp: Reports: dyspnea; Denies: productive cough or non-productive cough GI: Reports: nausea and vomiting; Denies: abdominal pain, diarrhea, constipation or hematochezia : Denies: flank pain, dysuria or hematuria Musc: Denies: neck pain, back pain or extremity swelling Skin/Breast: Denies: rash or new lesions Neuro: Denies: headache(s), numbness in extremities or weakness in extremities [facility] ED PFSH: Medical History Adjustment disorder with mixed disturbance of emotions and conduct Anxiety BPPV (benign paroxysmal positional vertigo) CAD (coronary artery disease) Carotid stenosis 04/2020: Right < 50%, Left near 70% Chronic diastolic CHF (congestive heart failure) 12/2020 EF 55%, grade II/IV diastolic dysfunction Chronic left sacroiliac joint pain Claustrophobia Diabetes mellitus Diverticulitis Elevated troponin End stage renal disease ESBL (extended spectrum beta-lactamase) producing bacteria infection DAILY (generalized anxiety disorder) Gastroparesis GERD (gastroesophageal reflux disease) Gram-negative bacteremia Hemodialysis catheter dysfunction HTN (hypertension) Hyperlipidemia Hypothyroidism Major depression, recurrent DOROTEO on CPAP PAD (peripheral artery disease) Partial nontraumatic amputation of left foot (~06/2019) Peripheral vascular disease Peritonitis associated with peritoneal dialysis Phantom pain Pneumonia due to COVID-19 virus (~12/2020) Suicidal ideation TIA (transient ischemic attack) Vitamin D deficiency Surgical History AV (arteriovenous fistula) (~10/2020) H/O hysterectomy with oophorectomy History of appendectomy History of heart artery stent PCI to LAD, done in [place], [place] 10/2018 ENRIQUE to mid LAD at [facility] 04/2020 History of hysterectomy History of left heart catheterization 04/2020 Findings: 1. There is severe coronary artery disease. 2. FFR of mid LAD was 0.76. 3. Severe OM 2 stenosis. However this is a small sized distal vessel. 4. Mid Left Anterior Descending Coronary Artery was treated with Balloon and Drug Eluting Stent History of right below knee amputation Peritoneal dialysis catheter in place Removed due to recurrent peritonitis S/P cholecystectomy S/P PICC central line placement (~2019) Status post amputation of toe Family History Denies family history of CAD (coronary artery disease) Clotting disorder Dementia Bleeding disorder Social History Smoking and tobacco status: never smoked Alcohol intake: never Household members: spouse and family History of recent travel: No Physical Exam Const: COMMON NORMALS: patient oriented x3 and alert GENERAL APPEARANCE: cooperative HENMT: COMMON NORMALS: normocephalic HEAD & SCALP: normocephalic MOUTH: Normal oral and palatal mucosa present THROAT: posterior oropharynx normal and uvula midline Neck/C-Spine: COMMON NORMALS: supple GENERAL: Yes normal visual inspection Resp: COMMON NORMALS: normal respiratory effort, No retractions and No use of accessory muscles AUSCULTATION: diminished lung sounds Cardio: COMMON NORMALS: regular rate, regular rhythm, S1 normal heart sound present, S2 normal heart sound present, No gallops present (Cardio), No clicks present (Cardio), No murmurs present (Cardio) and Peripheral pulses 2+ throughout RATE: regular rate RHYTHM: regular rhythm HEART SOUNDS: S1 normal heart sound present and S2 normal heart sound present PERIPHERAL PULSES: Peripheral pulses 2+ throughout GI: COMMON NORMALS: Normal to inspection, nondistended, normoactive bowel sounds present, Soft to palpation, non-tender and no masses PALPATION: Yes Soft to palpation : COMMON NORMALS: Yes no CVA tenderness BLADDER/KIDNEY EXAM: Yes no CVA tenderness Back/Pelvis: COMMON NORMALS: no CVA tenderness Neuro: COMMON NORMALS: patient oriented x3 and moves all extremities SENSORIUM/ORIENTATION: Yes alert Skin: GENERAL SKIN EXAM: dry skin Course Vital Signs: Vital signs: Vital Signs Temperature 98.2 F 09/02/21 10:21 Pulse Rate 76 09/02/21 14:30 Respiratory Rate 20 H 09/02/21 14:30 Blood Pressure 168/80 09/02/21 14:30 Pulse Oximetry 97 09/02/21 14:07 MDM - SOB/Dyspnea Lab Data I reviewed the patient's lab results. : 09/02/21 12:15 09/02/21 12:15 Labs/Radiology: Radiology Impressions Chest X-Ray 09/02/21 10:32 IMPRESSION: 1. Cardiac enlargement with pulmonary vascular congestion suggesting chronic CHF. 2. Bibasal airspace infiltrates and pleural effusions. This is most marked on the right. Laboratory Results WBC 4.7 10^3/uL (4.0-10.0) 09/02/21 12:15 RBC 3.46 10^6/uL (4.1-5.3) L 09/02/21 12:15 Hgb 11.1 g/dL (11.5-15.3) L 09/02/21 12:15 Hct 34.8 % (37.0-47.0) L 09/02/21 12:15 MCV 100.6 fl (81-99) H 09/02/21 12:15 MCH 32.1 pg (28.0-34.0) 09/02/21 12:15 MCHC 31.9 g/dL (30.0-36.0) 09/02/21 12:15 RDW 13.2 % (12.1-15.1) 09/02/21 12:15 Plt Count 180 10^3/cmm (130-400) 09/02/21 12:15 MPV 11.3 fL (7.4-10.4) H 09/02/21 12:15 Neut % (Auto) 78.1 % 09/02/21 12:15 Lymph % (Auto) 11.5 % 09/02/21 12:15 Stephen[place] % (Auto) 6.8 % 09/02/21 12:15 Eos % (Auto) 2.6 % 09/02/21 12:15 Baso % (Auto) 0.4 % 09/02/21 12:15 Neut # (Auto) 3.65 10^3/uL (1.8-7.7) 09/02/21 12:15 Lymph # (Auto) 0.5 10^3/uL (0.8-4.8) L 09/02/21 12:15 Stephenson # (Auto) 0.3 10^3/uL (0.2-0.9) 09/02/21 12:15 Eos # (Auto) 0.1 10^3/uL (0.0-0.8) 09/02/21 12:15 Baso # (Auto) 0.0 10^3/uL (0.0-0.1) 09/02/21 12:15 Nucleated RBC % (auto) 0 % 09/02/21 12:15 Nucleated RBCs # 0.0 /100WBC 09/02/21 12:15 D-Dimer 1.54 ug/mIFEU (0-0.59) H 09/02/21 12:15 Specimen Type Arterial 09/02/21 11:00 Sample Site Brachial, right 09/02/21 11:00 ABG pH 7.40 (7.35-7.45) 09/02/21 11:00 ABG pCO2 47.5 mmHg (35-45) H 09/02/21 11:00 ABG pO2 53.0 mmHg (80.0-100.0) L 09/02/21 11:00 ABG HCO3 29.7 mmol/L (22-26) H 09/02/21 11:00 ABG O2 Saturation 87.7 09/02/21 11:00 ABG Base Excess 4.2 mmol/L (-2.0-2.0) H 09/02/21 11:00 Jason Test N/a 09/02/21 11:00 A-a O2 Gradient 5.0 mmHg (5-10) 09/02/21 11:00 Hematocrit 33.7 % (37-47) L 09/02/21 11:00 Hgb O2 Saturation 85.5 % (95-100) L 09/02/21 11:00 Carboxyhemoglobin 1.7 %THgb (0.4-20.1) 09/02/21 11:00 Methemoglobin 0.9 % (0.4-1.5) 09/02/21 11:00 Total Hemoglobin 11.0 g/dL (12-16) L 09/02/21 11:00 Sodium 138.0 mmol/L (131-143) 09/02/21 11:00 Potassium 4.5 mmol/L (3.5-5.0) 09/02/21 11:00 Glucose 113.0 mg/dL (70-115) 09/02/21 11:00 Ionized Calcium 0.9 mmol/L (1.1-1.4) L 09/02/21 11:00 O2 Delivery Device Nc 09/02/21 11:00 O2 Liters/Min 3.0 % 09/02/21 11:00 Investment Underwriter ID Hinja 09/02/21 11:00 Sodium 134 mmol/L (136-145) L 09/02/21 12:15 Potassium 4.6 mmol/L (3.5-5.1) 09/02/21 12:15 Chloride 96 mmol/L (98-107) L 09/02/21 12:15 Carbon Dioxide 25 mmol/L (22-29) 09/02/21 12:15 Anion Gap 17.6 (5-19) 09/02/21 12:15 BUN 30 mg/dL (6-20) H 09/02/21 12:15 Creatinine 5.7 mg/dL (0.5-0.9) H* 09/02/21 12:15 GFR Calculation 7.7 mL/min (90-130) L 09/02/21 12:15 Glucose 109 mg/dL (65-115) 09/02/21 12:15 Calculated Osmolality 285 mOsm/kg (285-295) 09/02/21 12:15 Calcium 7.6 mg/dL (8.5-10.5) L 09/02/21 12:15 Total Bilirubin 0.5 mg/dL (0.15-1.2) 09/02/21 12:15 AST 19 U/L (0-32) 09/02/21 12:15 ALT 17 U/L (0-33) 09/02/21 12:15 Alkaline Phosphatase 225 IU/L (35-105) H 09/02/21 12:15 Troponin T Baseline 110 ng/L (0-10) H* 09/02/21 12:15 NT-Pro-B Natriuret Pep 9295 pg/mL (0-125) H 09/02/21 12:15 Total Protein 6.9 g/dL (6.6-8.7) 09/02/21 12:15 Albumin 3.8 g/dL (3.5-5.2) 09/02/21 12:15 Globulin 3.1 g/dL (1.3-4.6) 09/02/21 12:15 Lipase 27 U/L (13-60) 09/02/21 12:15 Urine Color Yellow (Yellow) 09/02/21 14:00 Urine Appearance Hazy (CLEAR) A 09/02/21 14:00 Urine pH 9 (5-7) H 09/02/21 14:00 Ur Specific [place] 1.015 (1.005-1.030) 09/02/21 14:00 Urine Protein 2+ (Negative) H 09/02/21 14:00 Urine Glucose (UA) 2+ (Normal) H 09/02/21 14:00 Urine Ketones Negative (Negative) 09/02/21 14:00 Urine Blood Neg (Negative) 09/02/21 14:00 Urine Nitrate Negative (Negative) 09/02/21 14:00 Urine Bilirubin Neg (Negative) 09/02/21 14:00 Prot Sulfosalicylic Acd Positive (Negative) 09/02/21 14:00 Urine Urobilinogen Neg mg/dL (Negative) 09/02/21 14:00 Ur Leukocyte Esterase Negative (Negative) 09/02/21 14:00 Urine RBC Rare /hpf (0-2) 09/02/21 14:00 Urine WBC 15-25 /hpf (0-5) H 09/02/21 14:00 Ur Squamous Epith Cells 15-25 /hpf (0-5) H 09/02/21 14:00 Amorphous Sediment Not Reportable 09/02/21 14:00 Urine Bacteria 1+ /hpf (NONE) H 09/02/21 14:00 EKG Data EKG 1: EKG Interpretation Date: 09/02/21 Interpretation: Normal sinus rhythm, no ST segment elevation or depression seen. 71 bpm. Discharge Plan Discharge Patient Disposition: Admitted As Inpatient Admit Provider: Neeta Jeronimo Clinical Impression: Congestive heart failure, Diabetes mellitus, with long-term current use of insulin, Bilateral pleural effusion, HTN (hypertension), CAD (coronary artery disease) Condition: Stable Sign Out Sign Out Data: Patient Sign Out occurred on 09/02/21 at 13:35. Patient's care was discussed, and care was transferred from to Karan Daniels DO. Coding Level of Care Code ED Health And Wellness Instructor for Chg Fwd Exam Comprehensive Documented by User: Karan Daniels DO 09/02/21 16:14 HPI - SOB/Dyspnea General: Chief Complaint: Shortness of Breath/Dyspnea Stated Complaint: SOB; bp issues Time Seen by Provider: 09/02/21 10:05 History of Present Illness: MD elicited complaint: shortness of breath and cough Pertinent past history: congestive heart failure Onset (ago): hour(s) Timing: constant Severity: moderate Exacerbating factors: lying flat and exertion Relieving factors: oxygen, rest and upright position Known history of: congestive heart failure Associated symptoms: Reports orthopnea; Deny abdominal pain, chest pain, fever(s), nausea or vomiting Review of Systems Const: Denies: fever(s), chills, body aches, change in appetite, fatigue or malaise ENMT: Denies: throat pain, ear or mastoid pain, nasal discharge or nasal congestion Card: Reports: edema, dyspnea on exertion and orthopnea; Denies: chest pain Resp: Reports: dyspnea and non-productive cough; Denies: productive cough GI: Denies: abdominal pain, nausea, vomiting, hematemesis, coffee ground emesis, diarrhea, constipation, bloating, hematochezia or melena : Denies: flank pain, difficulty voiding, dysuria, urinary frequency or urinary urgency Skin/Breast: Denies: rash or pruritus PFSH ED PFSH: Medical History Adjustment disorder with mixed disturbance of emotions and conduct Anxiety BPPV (benign paroxysmal positional vertigo) CAD (coronary artery disease) Carotid stenosis 04/2020: Right < 50%, Left near 70% Chronic diastolic CHF (congestive heart failure) 12/2020 EF 55%, grade II/IV diastolic dysfunction Chronic left sacroiliac joint pain Claustrophobia Diabetes mellitus Diverticulitis Elevated troponin End stage renal disease ESBL (extended spectrum beta-lactamase) producing bacteria infection DAILY (generalized anxiety disorder) Gastroparesis GERD (gastroesophageal reflux disease) Gram-negative bacteremia Hemodialysis catheter dysfunction HTN (hypertension) Hyperlipidemia Hypothyroidism Major depression, recurrent DOROTEO on CPAP PAD (peripheral artery disease) Partial nontraumatic amputation of left foot (~06/2019) Peripheral vascular disease Peritonitis associated with peritoneal dialysis Phantom pain Pneumonia due to COVID-19 virus (~12/2020) Suicidal ideation TIA (transient ischemic attack) Vitamin D deficiency Surgical History AV (arteriovenous fistula) (~10/2020) H/O hysterectomy with oophorectomy History of appendectomy History of heart artery stent PCI to LAD, done in [place], [place] 10/2018 ENRIQUE to mid LAD at [facility] 04/2020 History of hysterectomy History of left heart catheterization 04/2020 Findings: 1. There is severe coronary artery disease. 2. FFR of mid LAD was 0.76. 3. Severe OM 2 stenosis. However this is a small sized distal vessel. 4. Mid Left Anterior Descending Coronary Artery was treated with Balloon and Drug Eluting Stent History of right below knee amputation Peritoneal dialysis catheter in place Removed due to recurrent peritonitis S/P cholecystectomy S/P PICC central line placement (~2019) Status post amputation of toe Family History Denies family history of CAD (coronary artery disease) Clotting disorder Dementia Bleeding disorder Social History Smoking and tobacco status: never smoked Alcohol intake: never Household members: spouse and family History of recent travel: No Physical Exam Const: COMMON NORMALS: no acute distress GENERAL APPEARANCE: cooperative and comfortable ORIENTATION/CONSCIOUSNESS: Yes awake, Yes oriented to person, Yes oriented to place and Yes oriented to time HENMT: COMMON NORMALS: normocephalic, atraumatic and hearing grossly normal bilaterally HEAD & SCALP: normocephalic and atraumatic Resp: AUSCULTATION: crackles Cardio: COMMON NORMALS: regular rate and regular rhythm RATE: regular rate RHYTHM: regular rhythm GI: COMMON NORMALS: Soft to palpation and No hepatosplenomegaly present AUSCULTATION: Yes normoactive bowel sounds PALPATION: Yes Soft to palpation, No Tenderness to palpation present (GI), No Guarding due to palpation present (GI) and Yes No hepatosplenomegaly present Extremity: COMMON NORMALS: normal to inspection, capillary refill normal and no calf tenderness GENERAL: Yes edema Neuro: SENSORIUM/ORIENTATION: Yes oriented to person, Yes oriented to place and Yes oriented to time Skin: COMMON NORMALS: no rashes or lesions noted GENERAL SKIN EXAM: no rashes or lesions noted Course Vital Signs: Vital signs: Vital Signs Temperature 98.2 F 09/02/21 10:21 Pulse Rate 76 09/02/21 14:30 Respiratory Rate 20 H 09/02/21 14:30 Blood Pressure 168/80 09/02/21 14:30 Pulse Oximetry 97 09/02/21 14:07 MDM - SOB/Dyspnea Medical Decision Making Congestive heart failure. At the hemodialysis yesterday they report taking off 1.6 pounds. Patient will probably need further dialysis as well as medication adjustment discussed with Dr. Durham and with nephrology. Patient will be admitted orders written Medical Records I reviewed the patient's medical records. Lab Data I reviewed the patient's lab results. : 09/02/21 12:15 09/02/21 12:15 Labs/Radiology: Radiology Impressions Chest X-Ray 09/02/21 10:32 IMPRESSION: 1. Cardiac enlargement with pulmonary vascular congestion suggesting chronic CHF. 2. Bibasal airspace infiltrates and pleural effusions. This is most marked on the right. Laboratory Results WBC 4.7 10^3/uL (4.0-10.0) 09/02/21 12:15 RBC 3.46 10^6/uL (4.1-5.3) L 09/02/21 12:15 Hgb 11.1 g/dL (11.5-15.3) L 09/02/21 12:15 Hct 34.8 % (37.0-47.0) L 09/02/21 12:15 MCV 100.6 fl (81-99) H 09/02/21 12:15 MCH 32.1 pg (28.0-34.0) 09/02/21 12:15 MCHC 31.9 g/dL (30.0-36.0) 09/02/21 12:15 RDW 13.2 % (12.1-15.1) 09/02/21 12:15 Plt Count 180 10^3/cmm (130-400) 09/02/21 12:15 MPV 11.3 fL (7.4-10.4) H 09/02/21 12:15 Neut % (Auto) 78.1 % 09/02/21 12:15 Lymph % (Auto) 11.5 % 09/02/21 12:15 Stephenson % (Auto) 6.8 % 09/02/21 12:15 Eos % (Auto) 2.6 % 09/02/21 12:15 Baso % (Auto) 0.4 % 09/02/21 12:15 Neut # (Auto) 3.65 10^3/uL (1.8-7.7) 09/02/21 12:15 Lymph # (Auto) 0.5 10^3/uL (0.8-4.8) L 09/02/21 12:15 Stephenson # (Auto) 0.3 10^3/uL (0.2-0.9) 09/02/21 12:15 Eos # (Auto) 0.1 10^3/uL (0.0-0.8) 09/02/21 12:15 Baso # (Auto) 0.0 10^3/uL (0.0-0.1) 09/02/21 12:15 Nucleated RBC % (auto) 0 % 09/02/21 12:15 Nucleated RBCs # 0.0 /100WBC 09/02/21 12:15 D-Dimer 1.54 ug/mIFEU (0-0.59) H 09/02/21 12:15 Specimen Type Arterial 09/02/21 11:00 Sample Site Brachial, right 09/02/21 11:00 ABG pH 7.40 (7.35-7.45) 09/02/21 11:00 ABG pCO2 47.5 mmHg (35-45) H 09/02/21 11:00 ABG pO2 53.0 mmHg (80.0-100.0) L 09/02/21 11:00 ABG HCO3 29.7 mmol/L (22-26) H 09/02/21 11:00 ABG O2 Saturation 87.7 09/02/21 11:00 ABG Base Excess 4.2 mmol/L (-2.0-2.0) H 09/02/21 11:00 Jason Test N/a 09/02/21 11:00 A-a O2 Gradient 5.0 mmHg (5-10) 09/02/21 11:00 Hematocrit 33.7 % (37-47) L 09/02/21 11:00 Hgb O2 Saturation 85.5 % (95-100) L 09/02/21 11:00 Carboxyhemoglobin 1.7 %THgb (0.4-20.1) 09/02/21 11:00 Methemoglobin 0.9 % (0.4-1.5) 09/02/21 11:00 Total Hemoglobin 11.0 g/dL (12-16) L 09/02/21 11:00 Sodium 138.0 mmol/L (131-143) 09/02/21 11:00 Potassium 4.5 mmol/L (3.5-5.0) 09/02/21 11:00 Glucose 113.0 mg/dL (70-115) 09/02/21 11:00 Ionized Calcium 0.9 mmol/L (1.1-1.4) L 09/02/21 11:00 O2 Delivery Device Nc 09/02/21 11:00 O2 Liters/Min 3.0 % 09/02/21 11:00 Investment Underwriter ID Hinja 09/02/21 11:00 Sodium 134 mmol/L (136-145) L 09/02/21 12:15 Potassium 4.6 mmol/L (3.5-5.1) 09/02/21 12:15 Chloride 96 mmol/L (98-107) L 09/02/21 12:15 Carbon Dioxide 25 mmol/L (22-29) 09/02/21 12:15 Anion Gap 17.6 (5-19) 09/02/21 12:15 BUN 30 mg/dL (6-20) H 09/02/21 12:15 Creatinine 5.7 mg/dL (0.5-0.9) H* 09/02/21 12:15 GFR Calculation 7.7 mL/min (90-130) L 09/02/21 12:15 Glucose 109 mg/dL (65-115) 09/02/21 12:15 Calculated Osmolality 285 mOsm/kg (285-295) 09/02/21 12:15 Calcium 7.6 mg/dL (8.5-10.5) L 09/02/21 12:15 Total Bilirubin 0.5 mg/dL (0.15-1.2) 09/02/21 12:15 AST 19 U/L (0-32) 09/02/21 12:15 ALT 17 U/L (0-33) 09/02/21 12:15 Alkaline Phosphatase 225 IU/L (35-105) H 09/02/21 12:15 Troponin T Baseline 110 ng/L (0-10) H* 09/02/21 12:15 NT-Pro-B Natriuret Pep 9295 pg/mL (0-125) H 09/02/21 12:15 Total Protein 6.9 g/dL (6.6-8.7) 09/02/21 12:15 Albumin 3.8 g/dL (3.5-5.2) 09/02/21 12:15 Globulin 3.1 g/dL (1.3-4.6) 09/02/21 12:15 Lipase 27 U/L (13-60) 09/02/21 12:15 Urine Color Yellow (Yellow) 09/02/21 14:00 Urine Appearance Hazy (CLEAR) A 09/02/21 14:00 Urine pH 9 (5-7) H 09/02/21 14:00 Ur Specific [place] 1.015 (1.005-1.030) 09/02/21 14:00 Urine Protein 2+ (Negative) H 09/02/21 14:00 Urine Glucose (UA) 2+ (Normal) H 09/02/21 14:00 Urine Ketones Negative (Negative) 09/02/21 14:00 Urine Blood Neg (Negative) 09/02/21 14:00 Urine Nitrate Negative (Negative) 09/02/21 14:00 Urine Bilirubin Neg (Negative) 09/02/21 14:00 Prot Sulfosalicylic Acd Positive (Negative) 09/02/21 14:00 Urine Urobilinogen Neg mg/dL (Negative) 09/02/21 14:00 Ur Leukocyte Esterase Negative (Negative) 09/02/21 14:00 Urine RBC Rare /hpf (0-2) 09/02/21 14:00 Urine WBC 15-25 /hpf (0-5) H 09/02/21 14:00 Ur Squamous Epith Cells 15-25 /hpf (0-5) H 09/02/21 14:00 Amorphous Sediment Not Reportable 09/02/21 14:00 Urine Bacteria 1+ /hpf (NONE) H 09/02/21 14:00 Discharge Plan Discharge Patient Disposition: Admitted As Inpatient Admit Provider: Neeta Jeronimo Clinical Impression: Congestive heart failure, Diabetes mellitus, with long-term current use of insulin, Bilateral pleural effusion, HTN (hypertension), CAD (coronary artery disease) Condition: Stable Sign Out Sign Out Data: Patient Sign Out occurred on 09/02/21 at 13:35. Patient's care was discussed, and care was transferred from to Karan Daniels DO. Coding Level of Care Code ED Health And Wellness Instructor for Chg Fwd Exam Comprehensive
[2021-09-02 11:13] LABS: ABG PCO2 47.5 mmHg (35-45); Arterial Blood Gas Hematocrit 33.7 % (37-47); Base Excess ABG 4.2 mmol/L (-2.0-2.0); Blood Gas Sample Site Brachial, right; Blood Gas Sample Type Arterial; Carboxyhemoglobin 1.7 %THgb (0.4-20.1); HCO3 ABG 29.7 mmol/L (22-26); HGB O2 Sat 85.5 % (95-100); Ionized Calcium Level - ABG 0.9 mmol/L (1.1-1.4); Methemoglobin 0.9 % (0.4-1.5); Oxygen Device NC; Oxygen Saturation ABG 87.7; Potassium Level - ABG 4.5 mmol/L (3.5-5.0)
--- NOTE | 2021-09-02 11:59 | PC.PHAR ---
Addendum entered by Doris Oshea 09/02/21 12:02: PT STATES SHE HASNT TAKEN PLAVIX IN A LONG TIME- Original Note: PT STATES SHE TAKES CARE OF HER OWN MEDICATIONS-PT STATES SHE TAKES THE MEDICATIONS ENTERED-PT STATES SHE HASNT TAKEN ANY MEDS TODAY-PT STATES SHE IS NO LONGER USING ANY EYE DROPS-
[2021-09-02] MEDS: ondansetron 2 mg/ML SDV 2 mL 4 MG IVP (12:30)
[2021-09-02 12:32] LABS: Basophils % 0.4 %; Eosinophils # 0.1 10^3/uL (0.0-0.8); Eosinophils % 2.6 %; Hematocrit 34.8 % (37.0-47.0); Hemoglobin 11.1 g/dL (11.5-15.3); Lymphocytes # 0.5 10^3/uL (0.8-4.8); Lymphocytes % 11.5 %; Mean Corpuscular HGB Conc 31.9 g/dL (30.0-36.0); Mean Corpuscular Hemoglobin 32.1 pg (28.0-34.0); Mean Corpuscular Volume 100.6 fl (81-99); Mean Platelet Volume 11.3 fL (7.4-10.4); Monocytes # 0.3 10^3/uL (0.2-0.9); Monocytes % 6.8 %; Neutrophils # 3.65 10^3/uL (1.8-7.7); Neutrophils % 78.1 %; Nucleated Red Blood Cells % 0 %; Platelet Count 180 10^3/cmm (130-400); Red Blood Count 3.46 10^6/uL (4.1-5.3); Red Cell Distribution Width 13.2 % (12.1-15.1); White Blood Count 4.7 10^3/uL (4.0-10.0)
--- NOTE | 2021-09-02 12:32 | ECG_ITS ---
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 Measurements Intervals [place] Rate: P: LA: QRS: QRSD: T: QT: QTc: Interpretive Statements Sinus rhythm Left axis deviation Possible old anterolateral myocardial infarction Nonspecific ST wave changes ATYPICAL ECG WARNING: DATA QUALITY MAY AFFECT INTERPRETATION Compared to ECG 09/02/2021 12:59:07 No changes Electronically Signed On 09-03-2021 17:15:11 CDT by Manny Tan M.D. [id number]
[2021-09-02 12:45] LABS: D Dimer 1.54 ug/mIFEU (0-0.59)
[2021-09-02 12:53] LABS: Slide Review Slide Review Perform
[2021-09-02 13:01] LABS: Troponin(5th) Baseline 110 ng/L (0-10)
[2021-09-02 13:03] LABS: Alanine Aminotransferase 17 U/L (0-33); Albumin Level 3.8 g/dL (3.5-5.2); Alkaline Phosphatase 225 IU/L (35-105); Anion Gap 17.6 (5-19); Aspartate Amino Transferase 19 U/L (0-32); Blood Urea Nitrogen 30 mg/dL (6-20); Calcium 7.6 mg/dL (8.5-10.5); Carbon Dioxide 25 mmol/L (22-29); Chloride 96 mmol/L (98-107); Globulin 3.1 g/dL (1.3-4.6); Glomerular Filtration Rate 7.7 mL/min (90-130); Glucose 109 mg/dL (65-115); Lipase 27 U/L (13-60); NT Pro B Type Natriuretic Pept 9295 pg/mL (0-125); Osmolality Calculated 285 mOsm/kg (285-295); Potassium 4.6 mmol/L (3.5-5.1); Sodium 134 mmol/L (136-145); Total Bilirubin 0.5 mg/dL (0.15-1.2); Total Protein 6.9 g/dL (6.6-8.7)
[2021-09-02] MEDS: FUROsemide 10 mg/mL SDV 4mL 40 MG IVP (13:26)
[2021-09-02] MEDS: hyDRALAzine 20 mg/mL INJ 1 mL IVP (14:00)
[2021-09-02] MEDS: nitroglycerin 1 gm/inch oint Pkt 1 INCH TOPICAL (14:03)
[2021-09-02 15:24] LABS: Add Urine Microscopic? YES; Bilirubin Urine Neg (Negative); Blood Urine Neg (Negative); Glucose Urine UA 2+ (Normal); Ketones Urine Negative (Negative); Leukocyte Esterase Urine Negative (Negative); Nitrate Urine Negative (Negative); Protein Urine 2+ (Negative); Specific Gravity, Urine 1.015 (1.005-1.030); Urine Appearance Hazy (CLEAR); Urine Color Yellow (Yellow); Urobilinogen Urine Neg (Negative); pH Urine 9 (5-7)
[2021-09-02 15:25] LABS: Add Urine Culture? No; Bacteria Urine 1+ /hpf; RBC Urine RARE /hpf (0-2); Squamous Epithelial Cell Urine 15-25 /hpf (0-5); WBC Urine 15-25 /hpf (0-5)
--- NOTE | 2021-09-02 15:35 | PM.HP ---
Providers/Chief Complaint Admitting Physician: Neeta Jeronimo MD Primary Care Provider: Jacob Sharp DO Chief Complaint: SOB; bp issues History of Present Illness Rizwana Herzog is a 56 year old female who presented to the emergency room chief complaint of difficulty breathing. She says that she has not been feeling great lately but unable to really pinpoint much of anything new. She has a known end-stage renal disease patient on dialysis Wednesdays and Fridays. She also has a history of coronary artery disease among other diagnoses listed below. She had dialysis yesterday as planned. Reports that they actually took off more fluid than usual. She went to bed last night and when she awakened this morning she was very short of breath. This is what actually woke her up from sleep. She felt nauseated and does report one episode of vomiting, no blood was noted. She reports some chest discomfort. In talking with her further describes some dyspnea on exertion at times along with chest pain on exertion. Both usually improved with rest. She had seen her food and nutrition teacher Dr. Ignacio earlier this month and recommendations were to continue medications and to notify office if she has problems with chest pain or palpitations. It looks like she was started on Lasix at that time although patient denied any new medications. On arrival to the emergency room patient was noted to be hypoxic requiring 3 L of oxygen by nasal cannula. She was also quite hypertensive with pressures in the 200s over 100s. She received some IV diuresis and nephrology was consulted. Hospitalist were called for admission with plan for emergent dialysis. Baseline troponin was in the 100s which is not unusual for her. proBNP was elevated compared to prior values over 9000. No report of any hemoptysis. D-dimer was elevated at 1.54 which is similar to prior values. Chest x-ray showed pleural effusions and pulmonary edema. ABG 7.4 0/47/53/29 without a pronounced AA gradient. Patient still does not feel well primarily due to respiratory status but denies current chest pain. Review of Systems Const: Denies: fever(s) or chills Eyes: Reports: other (Had eye surgery last week left eye) ENMT: Denies: throat pain or nasal congestion Card: Reports: chest pain, palpitations, edema (sometimes, not presently), dyspnea on exertion and orthopnea Resp: Reports: dyspnea and non-productive cough; Denies: wheezing or pain on inspiration GI: Reports: nausea and vomiting; Denies: abdominal pain, diarrhea, constipation, hematochezia or melena : Reports: other (Still makes urine); Denies: difficulty voiding or hematuria Musc: Reports: muscle weakness Skin/Breast: Denies: pruritus or sores Neuro: Reports: dizziness; Denies: frequent falls Psych: Reports: anxiety Refugio/Lymph: Denies: easy bruising or easy bleeding Medications/Allergies Home Medications Medication Instructions Recorded Confirmed Last Taken Type aspirin 81 mg chewable tablet 81 mg PO DAILY@08 06/25/19 09/02/21 09/01/21 History omega 7-vyy-ykn-fish oil 300 1 cap PO BID@01/17/20 09/02/21 09/01/21 History mg-1,000 mg capsule,delayed release (Fish Oil) nitroglycerin 0.4 mg sublingual 0.4 mg SUBLINGUAL Q5M PRN #25 tab 03/26/20 09/02/21 04/18/20 Rx tablet cholecalciferol (vitamin D3) 25 25 mcg PO DAILY@08 05/14/20 09/02/21 09/01/21 History mcg (1,000 unit) tablet (Vitamin D3) clonidine HCl 0.1 mg tablet 0.1 mg PO BID #60 tab 01/03/21 09/02/21 09/01/21 Rx pantoprazole 40 mg tablet,delayed 40 mg PO DAILY@08 #90 tab 04/02/21 09/02/21 09/01/21 Rx release atorvastatin 40 mg tablet 40 mg PO DAILY@20 #90 tab 04/28/21 09/02/21 09/01/21 Rx pen needle, diabetic 32 gauge x #100 ea 06/17/21 09/02/21 Unknown Rx (ReliOn Pen [place]) amlodipine 10 mg tablet 10 mg PO DAILY 30 Days #30 tab 07/22/21 09/02/21 09/01/21 Rx escitalopram oxalate 20 mg tablet 20 mg PO DAILY 07/22/21 09/02/21 09/01/21 History insulin glargine 100 unit/mL (3 25 unit (0.25 mL) SUBCUT BID@08/06/21 09/02/21 09/01/21 Rx mL) subcutaneous pen (Lantus #15 ml Solostar U-100 Insulin) furosemide 40 mg tablet 40 mg PO QAM #30 tab 08/12/21 09/02/21 09/01/21 Rx PROSTHETIC SUPPLIES #1 ea 08/21/21 09/02/21 Unknown Rx clonazepam 0.25 mg disintegrating 0.25 mg PO BID PRN 09/02/21 09/02/21 Unknown History tablet levothyroxine 150 mcg tablet 150 mcg PO QAM 09/02/21 09/02/21 09/01/21 History (Euthyrox) ondansetron HCl 8 mg tablet 8 mg PO Q8H PRN 09/02/21 09/02/21 Unknown History promethazine 12.5 mg tablet 12.5 - 25 mg PO Q6H PRN 09/02/21 09/02/21 Unknown History vitamin B complex-vitamin C 100 1 tab PO DAILY 09/02/21 09/02/21 09/01/21 History mg-folic acid 1 mg tablet (Dialyvite) Allergies Allergy/AdvReac Type Severity Reaction Status Date / Time metformin [From Glucophage] Allergy Severe Unknown Verified 09/02/21 11:49 venlafaxine [From Effexor] Allergy Severe ADR-Shakine Verified 09/02/21 11:49 ss PFSH Acute PFSH: Medical History (Updated 09/02/21 @ 20:42 by Neeta Jeronimo MD) Adjustment disorder with mixed disturbance of emotions and conduct Anxiety BPPV (benign paroxysmal positional vertigo) CAD (coronary artery disease) Carotid stenosis 04/2020: Right < 50%, Left near 70% Chronic diastolic CHF (congestive heart failure) 12/2020 EF 55%, grade II/IV diastolic dysfunction Chronic left sacroiliac joint pain Claustrophobia Diabetes mellitus Diverticulitis Elevated troponin End stage renal disease ESBL (extended spectrum beta-lactamase) producing bacteria infection DAILY (generalized anxiety disorder) Gastroparesis GERD (gastroesophageal reflux disease) Gram-negative bacteremia Hemodialysis catheter dysfunction HTN (hypertension) Hyperlipidemia Hypothyroidism Major depression, recurrent DOROTEO on CPAP PAD (peripheral artery disease) Partial nontraumatic amputation of left foot (~06/2019) Peripheral vascular disease Peritonitis associated with peritoneal dialysis Phantom pain Pneumonia due to COVID-19 virus (~12/2020) Suicidal ideation TIA (transient ischemic attack) Vitamin D deficiency Surgical History (Updated 09/02/21 @ 20:23 by Neeta Jeronimo MD) AV (arteriovenous fistula) (~10/2020) H/O hysterectomy with oophorectomy History of appendectomy History of cataract surgery History of heart artery stent PCI to LAD, done in [place], [place] 10/2018 ENRIQUE to mid LAD at [facility] 04/2020 History of hysterectomy History of left heart catheterization 04/2020 Findings: 1. There is severe coronary artery disease. 2. FFR of mid LAD was 0.76. 3. Severe OM 2 stenosis. However this is a small sized distal vessel. 4. Mid Left Anterior Descending Coronary Artery was treated with Balloon and Drug Eluting Stent History of right below knee amputation Peritoneal dialysis catheter in place Removed due to recurrent peritonitis S/P cholecystectomy S/P PICC central line placement (~2019) Status post amputation of toe Family History Denies family history of CAD (coronary artery disease) Clotting disorder Dementia Bleeding disorder Social History Smoking and tobacco status: never smoked Alcohol intake: never Household members: spouse and family History of recent travel: No Vitals/I&O/Wt Last Vital Signs Temp 98.2 F 09/02/21 10:21 Pulse 76 09/02/21 14:30 Resp 20 H 09/02/21 14:30 BP 168/80 09/02/21 14:30 Pulse Ox 97 09/02/21 14:07 Weight last 48 hrs Weight 86.183 kg Physical Exam Narrative: Constitutional: Awake and alert, both chronically and acutely ill-appearing, cooperative HEENT: Normocephalic, left sclera injected, right normal-appearing, dry mucous membranes Neck: Supple Respiratory: Bilateral rails, no accessory muscle use the time of my evaluation Cardiovascular: Regular rhythm, distant heart sounds, JVD, AV fistula noted Abdomen: Soft, nontender, positive bowel sounds Extremities: Right BKA, left fifth digit missing, no pitting edema noted at right stump or pretibial area on the left Skin: Dry Neuro: Speech clear, face symmetric, generally weak but moves all extremities Psych: Flat affect Data : 09/02/21 12:15 09/02/21 12:15 Other Labs: Radiology Impressions Chest X-Ray 09/02/21 10:32 IMPRESSION: 1. Cardiac enlargement with pulmonary vascular congestion suggesting chronic CHF. 2. Bibasal airspace infiltrates and pleural effusions. This is most marked on the right. Laboratory Results WBC 4.7 10^3/uL (4.0-10.0) 09/02/21 12:15 RBC 3.46 10^6/uL (4.1-5.3) L 09/02/21 12:15 Hgb 11.1 g/dL (11.5-15.3) L 09/02/21 12:15 Hct 34.8 % (37.0-47.0) L 09/02/21 12:15 MCV 100.6 fl (81-99) H 09/02/21 12:15 MCH 32.1 pg (28.0-34.0) 09/02/21 12:15 MCHC 31.9 g/dL (30.0-36.0) 09/02/21 12:15 RDW 13.2 % (12.1-15.1) 09/02/21 12:15 Plt Count 180 10^3/cmm (130-400) 09/02/21 12:15 MPV 11.3 fL (7.4-10.4) H 09/02/21 12:15 Neut % (Auto) 78.1 % 09/02/21 12:15 Lymph % (Auto) 11.5 % 09/02/21 12:15 Miller % (Auto) 6.8 % 09/02/21 12:15 Eos % (Auto) 2.6 % 09/02/21 12:15 Baso % (Auto) 0.4 % 09/02/21 12:15 Neut # (Auto) 3.65 10^3/uL (1.8-7.7) 09/02/21 12:15 Lymph # (Auto) 0.5 10^3/uL (0.8-4.8) L 09/02/21 12:15 Miller # (Auto) 0.3 10^3/uL (0.2-0.9) 09/02/21 12:15 Eos # (Auto) 0.1 10^3/uL (0.0-0.8) 09/02/21 12:15 Baso # (Auto) 0.0 10^3/uL (0.0-0.1) 09/02/21 12:15 Nucleated RBC % (auto) 0 % 09/02/21 12:15 Nucleated RBCs # 0.0 /100WBC 09/02/21 12:15 D-Dimer 1.54 ug/mIFEU (0-0.59) H 09/02/21 12:15 Specimen Type Arterial 09/02/21 11:00 Sample Site Brachial, right 09/02/21 11:00 ABG pH 7.40 (7.35-7.45) 09/02/21 11:00 ABG pCO2 47.5 mmHg (35-45) H 09/02/21 11:00 ABG pO2 53.0 mmHg (80.0-100.0) L 09/02/21 11:00 ABG HCO3 29.7 mmol/L (22-26) H 09/02/21 11:00 ABG O2 Saturation 87.7 09/02/21 11:00 ABG Base Excess 4.2 mmol/L (-2.0-2.0) H 09/02/21 11:00 Jason Test N/a 09/02/21 11:00 A-a O2 Gradient 5.0 mmHg (5-10) 09/02/21 11:00 Hematocrit 33.7 % (37-47) L 09/02/21 11:00 Hgb O2 Saturation 85.5 % (95-100) L 09/02/21 11:00 Carboxyhemoglobin 1.7 %THgb (0.4-20.1) 09/02/21 11:00 Methemoglobin 0.9 % (0.4-1.5) 09/02/21 11:00 Total Hemoglobin 11.0 g/dL (12-16) L 09/02/21 11:00 Sodium 138.0 mmol/L (131-143) 09/02/21 11:00 Potassium 4.5 mmol/L (3.5-5.0) 09/02/21 11:00 Glucose 113.0 mg/dL (70-115) 09/02/21 11:00 Ionized Calcium 0.9 mmol/L (1.1-1.4) L 09/02/21 11:00 O2 Delivery Device Nc 09/02/21 11:00 O2 Liters/Min 3.0 % 09/02/21 11:00 Crabber ID Hinja 09/02/21 11:00 Sodium 134 mmol/L (136-145) L 09/02/21 12:15 Potassium 4.6 mmol/L (3.5-5.1) 09/02/21 12:15 Chloride 96 mmol/L (98-107) L 09/02/21 12:15 Carbon Dioxide 25 mmol/L (22-29) 09/02/21 12:15 Anion Gap 17.6 (5-19) 09/02/21 12:15 BUN 30 mg/dL (6-20) H 09/02/21 12:15 Creatinine 5.7 mg/dL (0.5-0.9) H* 09/02/21 12:15 GFR Calculation 7.7 mL/min (90-130) L 09/02/21 12:15 Glucose 109 mg/dL (65-115) 09/02/21 12:15 Calculated Osmolality 285 mOsm/kg (285-295) 09/02/21 12:15 Calcium 7.6 mg/dL (8.5-10.5) L 09/02/21 12:15 Total Bilirubin 0.5 mg/dL (0.15-1.2) 09/02/21 12:15 AST 19 U/L (0-32) 09/02/21 12:15 ALT 17 U/L (0-33) 09/02/21 12:15 Alkaline Phosphatase 225 IU/L (35-105) H 09/02/21 12:15 Troponin T Baseline 110 ng/L (0-10) H* 09/02/21 12:15 NT-Pro-B Natriuret Pep 9295 pg/mL (0-125) H 09/02/21 12:15 Total Protein 6.9 g/dL (6.6-8.7) 09/02/21 12:15 Albumin 3.8 g/dL (3.5-5.2) 09/02/21 12:15 Globulin 3.1 g/dL (1.3-4.6) 09/02/21 12:15 Lipase 27 U/L (13-60) 09/02/21 12:15 Urine Color Yellow (Yellow) 09/02/21 14:00 Urine Appearance Hazy (CLEAR) A 09/02/21 14:00 Urine pH 9 (5-7) H 09/02/21 14:00 Ur Specific [place] 1.015 (1.005-1.030) 09/02/21 14:00 Urine Protein 2+ (Negative) H 09/02/21 14:00 Urine Glucose (UA) 2+ (Normal) H 09/02/21 14:00 Urine Ketones Negative (Negative) 09/02/21 14:00 Urine Blood Neg (Negative) 09/02/21 14:00 Urine Nitrate Negative (Negative) 09/02/21 14:00 Urine Bilirubin Neg (Negative) 09/02/21 14:00 Prot Sulfosalicylic Acd Positive (Negative) 09/02/21 14:00 Urine Urobilinogen Neg mg/dL (Negative) 09/02/21 14:00 Ur Leukocyte Esterase Negative (Negative) 09/02/21 14:00 Urine RBC Rare /hpf (0-2) 09/02/21 14:00 Urine WBC 15-25 /hpf (0-5) H 09/02/21 14:00 Ur Squamous Epith Cells 15-25 /hpf (0-5) H 09/02/21 14:00 Amorphous Sediment Not Reportable 09/02/21 14:00 Urine Bacteria 1+ /hpf (NONE) H 09/02/21 14:00 Micro: Microbiology 09/02/21 12:15 Blood Culture - Preliminary Blood SPECIMEN COLLECTED 09/02/21 12:00 Blood Culture - Preliminary Blood SPECIMEN COLLECTED A&P Assessment and plan (1) Acute dyspnea: Multifactorial from accelerated hypertension hypertension and acute pulmonary edema in the setting of a known patient on chronic dialysis. Had dialysis yesterday. Unclear to me at the singular point in time if she is having more difficult to control blood pressures contributing, effect of rebound hypertension with clonidine use, changes in diet contributing to fluid retention, noncompliance with medical care, acute vascular process, less likely to be infection, or other process. Status: Acute (2) Congestive heart failure: Acute on chronic diastolic with preserved ejection fraction last echocardiogram, almost sounds like flash pulmonary edema or variant of such with rapid onset of symptoms Status: Chronic Qualifiers: Heart failure type: diastolic Heart failure chronicity: acute on chronic Qualified Code(s): I50.33 - Acute on chronic diastolic (congestive) heart failure (3) Accelerated hypertension: Chronically on amlodipine, clonidine and Lasix. Rebound hypertension from clonidine may be a contributing factor be on the above. Status: Acute (4) ESRD (end stage renal disease) on dialysis: Wednesdays and Fridays, still makes urine Status: Chronic (5) CAD (coronary artery disease): Has had previous angioplasty and stent placement in the LAD, most recent in 2019, chronically on aspirin, Plavix looks to have been stopped earlier this month after a year of treatment. Last stress test available here was in March 2020. Status: Chronic Qualifiers: Coronary Disease-Associated Artery/Lesion type: [place] artery [place] vs. transplanted heart: [place] heart Associated angina: with stable angina Qualified Code(s): I25.118 - Atherosclerotic heart disease of [place] coronary artery with other forms of angina pectoris (6) PAD (peripheral artery disease): History of right BKA Status: Chronic (7) Hyperlipidemia: Chronically on statin therapy and fish oil Status: Chronic Qualifiers: Hyperlipidemia type: unspecified Qualified Code(s): E78.5 - Hyperlipidemia, unspecified (8) Diabetes mellitus, with long-term current use of insulin: Chronically on insulin Status: Chronic Qualifiers: Diabetes mellitus type: type 2 Diabetes mellitus complication status: with circulatory complication Diabetes mellitus complication detail: with other circulatory complications Qualified Code(s): E11.59 - Type 2 diabetes mellitus with other circulatory complications; Z79.4 - detention (current) use of insulin (9) Sleep apnea: CPAP Status: Chronic Qualifiers: Sleep apnea type: obstructive Qualified Code(s): G47.33 - Obstructive sleep apnea (adult) (pediatric) (10) Hypothyroidism: Chronically on levothyroxine Status: Chronic Qualifiers: Hypothyroidism type: acquired Qualified Code(s): E03.9 - Hypothyroidism, unspecified (11) Anxiety and depression: Chronically on escitalopram and as needed clonazepam Status: Acute (12) Anemia in chronic kidney disease: Stable Status: Chronic Qualifiers: Chronic kidney disease stage: on chronic dialysis Qualified Code(s): N18.6 - End stage renal disease; D63.1 - Anemia in chronic kidney disease; Z99.2 - Dependence on renal dialysis Plan Observation admission Nephrology consultation for both emergent and usual dialysis, appreciate assistance with care Serial cardiac enzymes and EKGs Limited echocardiogram to evaluate ejection fraction Pending results of above consider inpatient versus outpatient stress testing Wean oxygen as able after dialysis Adjust clonidine dosing for now Status post Nitropaste in the emergency room, will continue as needed nitroglycerin Also received hydralazine, IV Lasix, IV metoprolol in the emergency room Evaluate blood pressures post emergent dialysis, adjusting therapy as needed Ensure has clonazepam available if needed for anxiety Continue home Lasix 40 mg daily Continue aspirin and statin therapy Continue home levothyroxine Long-acting insulin at a lower dose than usual with sliding scale CPAP with sleep Subcu heparin for DVT prophylaxis PPI for GI prophylaxis Supportive care otherwise Plans were discussed with patient and she was given an opportunity to ask questions Anticipate discharge home when stable with continued outpatient hemodialysis Full code Attestations Medical Necessity Statement*: Currently anticipate a stay less than 2 midnights in a patient on chronic hemodialysis presenting with acute volume overload and poorly controlled blood pressures. Presently etiology of acute symptoms is unclear. Plans are as indicated. Coding Level of Care Code Acute Cloth Neutralizer for Maris Braden Diagnoses Acute dyspnea R06.00 Congestive heart failure I50.33 Heart failure type: diastolic Heart failure chronicity: acute on chronic Accelerated hypertension I10 ESRD (end stage renal disease) on dialysis N18.6; Z99.2 CAD (coronary artery disease) I25.118 Coronary Disease-Associated Artery/Lesion type: [place] artery [place] vs. transplanted heart: [place] heart Associated angina: with stable angina PAD (peripheral artery disease) I73.9 Diabetes mellitus, with long-term current use of insulin E11.59; Z79.4 Diabetes mellitus type: type 2 Diabetes mellitus complication status: with circulatory complication Diabetes mellitus complication detail: with other circulatory complications Sleep apnea G47.33 Sleep apnea type: obstructive Hypothyroidism E03.9 Hypothyroidism type: acquired Hyperlipidemia E78.5 Hyperlipidemia type: unspecified Anxiety and depression F41.9; F32.A Anemia in chronic kidney disease N18.6; D63.1; Z99.2 Chronic kidney disease stage: on chronic dialysis
[2021-09-02 15:36] LABS: Sulfosalicylic Acid Urine Positive (Negative)
--- NOTE | 2021-09-02 16:32 | ECG_ITS ---
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 Measurements Intervals [place] Rate: 71 P: 23 [place]: 195 QRS: -53 QRSD: 92 T: 31 QT: 410 QTc: 446 Interpretive Statements SINUS RHYTHM LEFT AXIS DEVIATION [QRS AXIS < -30] POSSIBLE ANTERIOR MYOCARDIAL INFARCTION , PROBABLY OLD [30 ms Q WAVE IN V3/V4, OR R < 0.2 mV IN V4] Compared to ECG 09/02/2021 11:02:10 No significant changes Electronically Signed On 09-03-2021 17:13:19 CDT by Manny Tan M.D. [id number]
--- NOTE | 2021-09-02 16:43 | P.CONIM_ITS ---
Providers/Reason For Consult Consulting Physician/Specialty*: christelle bullard md / telenephrology Reason for Consult*: ESRD Requesting Physician: Dr Jeronimo Attending Physician: Neeta Jeronimo MD Primary Care Provider: Jacob Sharp DO History of Present Illness History of Present Illness Rizwana Herzog is a 56 year old female ESRD on HD MWF, htn, hypothyroidism, SM, PVD/ RT BKA, CHF, anemia. H/o COVID-19 in January 2021. Pt here w/ SOB, IZAGUIRRE, edema, htn. Renal called for emergency HD Review of Systems Narrative: weak, sob, IZAGUIRRE, swollen, headache, cough Medications/Allergies Home Medications Medication Instructions Recorded Confirmed Last Taken Type aspirin 81 mg chewable tablet 81 mg PO DAILY@08 06/25/19 09/02/21 09/01/21 History omega 0-oyq-eip-fish oil 300 1 cap PO BID@08,01/17/20 09/02/21 09/01/21 History mg-1,000 mg capsule,delayed release (Fish Oil) nitroglycerin 0.4 mg sublingual 0.4 mg SUBLINGUAL Q5M PRN #25 tab 03/26/20 09/02/21 04/18/20 Rx tablet cholecalciferol (vitamin D3) 25 25 mcg PO DAILY@08 05/14/20 09/02/21 09/01/21 History mcg (1,000 unit) tablet (Vitamin D3) clonidine HCl 0.1 mg tablet 0.1 mg PO BID #60 tab 01/03/21 09/02/21 09/01/21 Rx pantoprazole 40 mg tablet,delayed 40 mg PO DAILY@08 #90 tab 04/02/21 09/02/21 09/01/21 Rx release atorvastatin 40 mg tablet 40 mg PO DAILY@20 #90 tab 04/28/21 09/02/21 09/01/21 Rx pen needle, diabetic 32 gauge x #100 ea 06/17/21 09/02/21 Unknown Rx (ReliOn Pen [place]) amlodipine 10 mg tablet 10 mg PO DAILY 30 Days #30 tab 07/22/21 09/02/21 09/01/21 Rx escitalopram oxalate 20 mg tablet 20 mg PO DAILY 07/22/21 09/02/21 09/01/21 History insulin glargine 100 unit/mL (3 25 unit (0.25 mL) SUBCUT BID@08,20 08/06/21 09/02/21 09/01/21 Rx mL) subcutaneous pen (Lantus #15 ml Solostar U-100 Insulin) furosemide 40 mg tablet 40 mg PO QAM #30 tab 08/12/21 09/02/21 09/01/21 Rx PROSTHETIC SUPPLIES #1 ea 08/21/21 09/02/21 Unknown Rx clonazepam 0.25 mg disintegrating 0.25 mg PO BID PRN 09/02/21 09/02/21 Unknown History tablet levothyroxine 150 mcg tablet 150 mcg PO QAM 09/02/21 09/02/21 09/01/21 History (Euthyrox) ondansetron HCl 8 mg tablet 8 mg PO Q8H PRN 09/02/21 09/02/21 Unknown History promethazine 12.5 mg tablet 12.5 - 25 mg PO Q6H PRN 09/02/21 09/02/21 Unknown History vitamin B complex-vitamin C 100 1 tab PO DAILY 09/02/21 09/02/21 09/01/21 History mg-folic acid 1 mg tablet (Dialyvite) Allergies Allergy/AdvReac Type Severity Reaction Status Date / Time metformin [From Glucophage] Allergy Severe Unknown Verified 09/02/21 11:49 venlafaxine [From Effexor] Allergy Severe ADR-Shakine Verified 09/02/21 11:49 ss PFSH Acute PFSH: Medical History Adjustment disorder with mixed disturbance of emotions and conduct Anxiety BPPV (benign paroxysmal positional vertigo) CAD (coronary artery disease) Carotid stenosis 04/2020: Right < 50%, Left near 70% Chronic diastolic CHF (congestive heart failure) 12/2020 EF 55%, grade II/IV diastolic dysfunction Chronic left sacroiliac joint pain Claustrophobia Diabetes mellitus Diverticulitis Elevated troponin End stage renal disease ESBL (extended spectrum beta-lactamase) producing bacteria infection DAILY (generalized anxiety disorder) Gastroparesis GERD (gastroesophageal reflux disease) Gram-negative bacteremia Hemodialysis catheter dysfunction HTN (hypertension) Hyperlipidemia Hypothyroidism Major depression, recurrent DOROTEO on CPAP PAD (peripheral artery disease) Partial nontraumatic amputation of left foot (~06/2019) Peripheral vascular disease Peritonitis associated with peritoneal dialysis Phantom pain Pneumonia due to COVID-19 virus (~12/2020) Suicidal ideation TIA (transient ischemic attack) Vitamin D deficiency Surgical History AV (arteriovenous fistula) (~10/2020) H/O hysterectomy with oophorectomy History of appendectomy History of heart artery stent PCI to LAD, done in [place], [place] 10/2018 ENRIQUE to mid LAD at [facility] 04/2020 History of hysterectomy History of left heart catheterization 04/2020 Findings: 1. There is severe coronary artery disease. 2. FFR of mid LAD was 0.76. 3. Severe OM 2 stenosis. However this is a small sized distal vessel. 4. Mid Left Anterior Descending Coronary Artery was treated with Balloon and Drug Eluting Stent History of right below knee amputation Peritoneal dialysis catheter in place Removed due to recurrent peritonitis S/P cholecystectomy S/P PICC central line placement (~2019) Status post amputation of toe Family History Denies family history of CAD (coronary artery disease) Clotting disorder Dementia Bleeding disorder Social History Smoking and tobacco status: never smoked Alcohol intake: never Household members: spouse and family History of recent travel: No Vitals/I&O/Wt Last Vital Signs Temp 98.2 F 09/02/21 10:21 Pulse 76 09/02/21 14:30 Resp 20 H 09/02/21 14:30 BP 168/80 09/02/21 14:30 Pulse Ox 97 09/02/21 14:07 Weight last 48 hrs Weight 86.183 kg Physical Exam Narrative: sob in bed, nc o2 heent- nc/at, eomi, anicteric neck supple Rt Sided permacath lungs dull bases heart reg abd spft, nt, nd ext rt BKA, 1+ edema neuro- a,a, o x 3 Data : 09/02/21 12:15 09/02/21 12:15 Micro: Microbiology 09/02/21 12:15 Blood Culture - Preliminary Blood SPECIMEN COLLECTED 09/02/21 12:00 Blood Culture - Preliminary Blood SPECIMEN COLLECTED A&P Assessment and plan (1) ESRD (end stage renal disease) on dialysis: 56 yr old female 1. ESRD- extra SUF today for volume removal -full HD in am 2. HTN- remove fluids as tolerated 3. CAD- follows w/ Dr. Ignacio 4. CHF-echo from December 2020- EF 55%. grade 2/4 diastolic dysfunction. consider repeat echo -bnp 9295- monitor w/ volume removal -acute on chronic diastolic dysfunction 5. DOROTEO 6. hypothyroidism- tsh 4.77 in 2021 7. DM control per PMD 8.hgb okay for ESRD 9. vit d 37 in jul 2021 -check phos and pth seen and examined w/ HD RN- telehealth visit -informed consent for telehealth visit obtained time spent 50 min Status: Acute Plan as above Consult Attestations Medical Necessity Statement: esrd, htn, acute on chronic diastolic dysfunction Time Spent in Patient Care: Greater than 35 minutes (>than 50% of time spent in counselling and/or direct pt care on unit) . 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
[2021-09-02] MEDS: heparin 5,000 unit/mL INJ 1 mL 5000 UNIT SUBCUT (18:40)
--- NOTE | 2021-09-02 19:18 | PC.NURSE ---
Received report from KELECHI Chapin. Patient resting in bed. Patient reports just not feeling well tonight. Discussed plan for possible dialysis in the am. Patient verbalized understanding. No other distress observed. Will continue to monitor.
[2021-09-02 19:22] LABS: Uric Acid 3.9 mg/dL (2.4-5.7)
[2021-09-02 19:43] LABS: Troponin 5 6HR 106.4 ng/L (0-10); Troponin 5 6HR Delta -3.6 ng/L (0-12)
[2021-09-02 19:49] LABS: Glucose Point of Care 89 mg/dL (70-110)
[2021-09-02 20:19] LABS: Glucose Point of Care 116 mg/dL (70-110)
[2021-09-02] MEDS: insulin glargine 100 units/1 mL 10 UNIT SUBCUT (21:15)
[2021-09-02] MEDS: atorvastatin 40 mg Tablet PO (21:15)
[2021-09-02] MEDS: cloNIDine 0.1 mg Tablet PO (21:15)
[2021-09-02] MEDS: acetaminophen 325 mg Tablet 650 MG PO (22:13)
[2021-09-02] MEDS: CLONazepam 0.5 mg Tablet 0.25 MG PO (22:14)
[2021-09-02 22:36] LABS: Hepatitis B Surface AB 20.9 (11.5-1000); Hepatitis B Surface Antigen Non-Reactive (Nonreactive); Hepatitis C Virus Antibody Non-Reactive (Nonreactive)
[2021-09-03] VITALS (16 sets, daily range): BP systolic 115–177; BP diastolic 63–79; PULSE 59–81; RESP 12–20; TEMP 36.1–36.6; O2SAT 95–99
[2021-09-03 03:11] LABS: Basophils % 0.7 %; Eosinophils # 0.2 10^3/uL (0.0-0.8); Eosinophils % 3.8 %; Hematocrit 30.6 % (37.0-47.0); Hemoglobin 9.8 g/dL (11.5-15.3); Lymphocytes # 0.8 10^3/uL (0.8-4.8); Lymphocytes % 18.1 %; Mean Corpuscular Hemoglobin 32.2 pg (28.0-34.0); Mean Corpuscular Volume 100.7 fl (81-99); Mean Platelet Volume 11.5 fL (7.4-10.4); Monocytes # 0.3 10^3/uL (0.2-0.9); Monocytes % 7.9 %; Neutrophils # 2.88 10^3/uL (1.8-7.7); Neutrophils % 68.8 %; Nucleated Red Blood Cells % 0 %; Platelet Count 181 10^3/cmm (130-400); Red Blood Count 3.04 10^6/uL (4.1-5.3); Red Cell Distribution Width 13.5 % (12.1-15.1); White Blood Count 4.2 10^3/uL (4.0-10.0)
[2021-09-03 03:36] LABS: Alanine Aminotransferase 14 U/L (0-33); Albumin Level 3.2 g/dL (3.5-5.2); Alkaline Phosphatase 186 IU/L (35-105); Anion Gap 17.1 (5-19); Aspartate Amino Transferase 16 U/L (0-32); Blood Urea Nitrogen 40 mg/dL (6-20); Calcium 7.7 mg/dL (8.5-10.5); Carbon Dioxide 26 mmol/L (22-29); Chloride 98 mmol/L (98-107); Globulin 2.4 g/dL (1.3-4.6); Glomerular Filtration Rate 6.4 mL/min (90-130); Glucose 120 mg/dL (65-115); Magnesium 1.8 mg/dL (1.7-2.3); Osmolality Calculated 295 mOsm/kg (285-295); Phosphorus 4.5 mg/dL (2.5-4.5); Potassium 4.1 mmol/L (3.5-5.1); Sodium 137 mmol/L (136-145); Total Bilirubin 0.4 mg/dL (0.15-1.2); Total Protein 5.6 g/dL (6.6-8.7)
[2021-09-03 03:40] LABS: Calcium 7.7 mg/dL (8.5-10.5)
[2021-09-03 03:47] LABS: Parathyroid Hormone 561.6 pg/mL (15-65)
[2021-09-03] MEDS: FUROsemide 40 mg Tablet PO (04:31)
[2021-09-03] MEDS: levothyroxine 150 mcg Tablet PO (04:31)
[2021-09-03] MEDS: cloNIDine 0.1 mg Tablet PO (04:31)
[2021-09-03] MEDS: heparin 5,000 unit/mL INJ 1 mL 5000 UNIT SUBCUT ×2 (04:31→17:31)
[2021-09-03] MEDS: morphine 4 mg/mL SDV 1 mL 2 MG IVP ×2 (04:47→14:48)
--- NOTE | 2021-09-03 04:53 | PC.NURSE ---
Patient c/o patient to mid/upper back 12/14. Informed Dr Zamorano. Doctor placed order. Medication administered as ordered and documented. Instructed patient on morphine. Patient verbalized complete understanding. Will continue to monitor.
--- NOTE | 2021-09-03 05:03 | CTR_ITS ---
PROCEDURE INFORMATION: Exam: CTA Chest With Contrast Exam date and time: 09/03/2021 5:25 AM Age: 56 years old Clinical indication: Other: Upper back pain. ; Prior surgery; Surgery type: Dialysis cath. Gb. ; Patient HX: Sudden onset of middle upper back pain with hypertension. History of chf. ; Additional info: Sharp pain btw shoulderblades, HTN, assess poss dissection TECHNIQUE: Imaging protocol: Computed tomographic angiography of the chest with contrast. 3D rendering (Not supervised by radiologist): MIP and/or 3D reconstructed images were created by the technologist. Radiation optimization: All CT scans at this facility use at least one of these dose optimization techniques: automated exposure control; mA and/or kV adjustment per patient size (includes targeted exams where dose is matched to clinical indication); or iterative reconstruction. Contrast material: OMNI 350; Contrast volume: 88 ml; Contrast route: INTRAVENOUS (IV); COMPARISON: CT angio chest PE protcl [id number] 08/05/2021 10:09 PM RADIATION DOSE METRICS: Total DLP (mGy-cm): 1321.43 FINDINGS: Tubes, catheters and devices: Right chest wall port catheter tip terminates in the SVC. Pulmonary arteries: No pulmonary emboli. Aorta: No aortic aneurysm. No aortic dissection. Lungs: Interlobular septal thickening with patchy bibasilar opacities at the lung bases. Pleural spaces: Bilateral moderate to large pleural effusions. Heart: Cardiomegaly. Lymph nodes: Slightly prominent mediastinal lymph nodes which may be reactive. Gallbladder and bile ducts: Status post cholecystectomy. Bones/joints: Unremarkable. No acute fracture. Soft tissues: Unremarkable. CT/CT angio chest [id number] IMPRESSION: 1. No aortic dissection. 2. Bilateral moderate to large pleural effusions. 3. Interlobular septal thickening with patchy bibasilar opacities at the lung bases. Findings may be seen with pneumonia or pulmonary edema. The
[2021-09-03] MEDS: iohexol 350 mg/mL 100 mL Btl IV (05:25)
[2021-09-03 06:48] LABS: Glucose Point of Care 160 mg/dL (70-110)
--- NOTE | 2021-09-03 07:29 | PM.PN ---
Subjective Subjective: still sob. feels better. weak, nausea. poor appetite. Medications: Reviewed: Yes Medication Review Details: Current Medications Acetaminophen (Acetaminophen 325 Mg Tablet) 650 mg PO Q6H PRN PRN Reason: Mild/Mod Pain Or Temp >/= 101 Last Admin: 09/02/21 22:13 Dose: 650 mg Documented by: Aspirin (Aspirin 81 Mg Chew Tablet) 81 mg PO DAILY@08 [facility] Atorvastatin Calcium (Atorvastatin 40 Mg Tablet) 40 mg PO DAILY@20 [facility] Last Admin: 09/02/21 21:15 Dose: 40 mg Documented by: Bisacodyl (Bisacodyl 5 Mg Tablet) 10 mg PO DAILY PRN; Protocol PRN Reason: Constipation (see protocol) Clonazepam (Clonazepam 0.5 Mg Tablet) 0.25 mg PO BID PRN PRN Reason: ANXIETY Last Admin: 09/02/21 22:14 Dose: 0.25 mg Documented by: Clonidine HCl (Clonidine 0.1 Mg Tablet) 0.1 mg PO Q8H [facility] Last Admin: 09/03/21 04:31 Dose: 0.1 mg Documented by: Dextrose (Dextrose 50% Syringe 50 Ml) 25 ml IVP ONCE PRN; Protocol PRN Reason: hypoglycemia protocol Dextrose (Dextrose 50% Syringe 50 Ml) 50 ml IVP PRN PRN; Protocol PRN Reason: hypoglycemia protocol Escitalopram Oxalate (Escitalopram 10 Mg Tablet) 20 mg PO DAILY [facility] Furosemide (Furosemide 40 Mg Tablet) 40 mg PO QAM [facility] Last Admin: 09/03/21 04:31 Dose: 40 mg Documented by: Glucagon (Glucagon 1 Mg/Ml Inj 1 Ml) 1 mg IM ONCE PRN; Protocol PRN Reason: Adult Acute Hypoglycemia Prot. Heparin Sodium (Porcine) (Heparin 5,000 Unit/Ml Inj 1 Ml) 5,000 unit SUBCUT Q12H [facility] Last Admin: 09/03/21 04:31 Dose: 5,000 unit Documented by: Albumin Human (Albumin) 12.5 gm in 50 mls @ 60 mls/hr IV PRN PRN PRN Reason: Hypotension and/or symptomatic Dextrose (D5w) 500 mls @ 100 mls/hr IV ONCE PRN; Protocol PRN Reason: Adult Acute Hypoglycemia Prot Insulin Glargine (Insulin Glargine 100 Units/1 Ml) 10 unit SUBCUT BID@ [facility] Last Admin: 09/02/21 21:15 Dose: 10 unit Documented by: Insulin Human Lispro (Insulin Lispro 100 Unit/1 Ml) 0 unit SUBCUT BEDTIME [facility]; Protocol Last Admin: 09/02/21 20:25 Dose: Not Given Documented by: Insulin Human Lispro (Insulin Lispro 100 Unit/1 Ml) 0 unit SUBCUT TIDWM [facility]; Protocol Last Admin: 09/02/21 18:34 Dose: Not Given Documented by: Levothyroxine Sodium (Levothyroxine 150 Mcg Tablet) 150 mcg PO QAM [facility] Last Admin: 09/03/21 04:31 Dose: 150 mcg Documented by: Morphine Sulfate (Morphine 4 Mg/Ml Sdv 1 Ml) 2 mg IVP Q4H PRN PRN Reason: SEVERE PAIN Last Admin: 09/03/21 04:47 Dose: 2 mg Documented by: Multivitamins (A-Myvwpwa-Wqdlblz C Tablet) 1 each PO DAILY [facility] Nitroglycerin (Nitroglycerin 0.4 Mg Sublingual Tablet) 0.4 mg SUBLINGUAL Q5M PRN PRN Reason: Chest Pain Ondansetron HCl (Ondansetron 4 Mg Tablet) 8 mg PO Q8H PRN PRN Reason: NAUSEA Ondansetron HCl (Ondansetron 2 Mg/Ml Sdv 2 Ml) 4 mg IVP Q8H PRN PRN Reason: vomiting, or N/V if npo Pantoprazole Sodium (Pantoprazole Dr 40 Mg Tablet) 40 mg PO DAILY@08 [facility] Vitamin D (Cholecalciferol (Vitamin D3) 1,000 Unit Tablet) 1,000 unit PO DAILY@08 [facility] Vitals/I&O/Wt Last Vital Signs Temp 97.5 F L 09/03/21 07:26 Pulse 59 L 09/03/21 07:26 Resp 16 09/03/21 07:26 BP 115/64 09/03/21 07:26 Pulse Ox 97 09/03/21 07:26 09/02/21 09/03/21 09/03/21 22:59 06:59 14:59 Intake Total 240 / 240 Balance 240 / 240 Weight last 48 hrs Weight 86.183 kg Physical Exam Narrative: less sob in bed, nc o2 heent- nc/at, eomi, anicteric facial edema neck supple Rt Sided permacath lungs dull bases heart reg abd soft, nt, nd ext rt BKA, 1+ edema neuro- a,a, o x 3 Data : 09/03/21 02:42 09/03/21 02:42 Micro: Microbiology 09/02/21 12:15 Blood Culture - Preliminary Blood SPECIMEN COLLECTED 09/02/21 12:00 Blood Culture - Preliminary Blood SPECIMEN COLLECTED A&P Assessment and plan (1) ESRD (end stage renal disease) on dialysis: 56 yr old female 1. ESRD- extra SUF today for volume removal -full HD today- 3.5 hrs, remove 3l, 2 k 2. HTN- BP much improved- dec meds to allow for fluid removal on HD 3. CAD- follows w/ Dr. Ignacio 3b. CHF-echo from December 2020- EF 55%. grade 2/4 diastolic dysfunction. consider repeat echo -bnp 9295- monitor w/ volume removal -acute on chronic diastolic dysfunction 4. b/l moderate to large pleural effusions- monitor w/ HD. consider thoracentesis 5. DOROTEO- resp acidosis per medicine/ pulm 6. hypothyroidism- tsh 4.77 in 2021 7. DM control per PMD 8.hgb okay for ESRD 9. vit d 37 in jul 2021 -normal phos -secondary hyperparathyroidism- pth 561- improving- zemplar w/ HD seen and examined w/ HD RN- telehealth visit -informed consent for telehealth visit obtained time spent 50 min Status: Chronic Plan as above Attestations Medical Necessity Statement*: pleural effusions/ ESRD/ SOB/ resp acidosis Time Spent in Patient Care: 16 - 35 minutes (>than 50% of time spent in counselling and/or direct pt care on unit). 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
[2021-09-03] MEDS: insulin glargine 100 units/1 mL 10 UNIT SUBCUT ×2 (08:12→20:37)
[2021-09-03] MEDS: insulin lispro 100 unit/1 mL SUBCUT (08:12)
[2021-09-03] MEDS: pantoprazole DR 40 mg Tablet PO (08:30)
[2021-09-03] MEDS: b-complex-vitamin c Tablet 1 EACH PO (08:30)
[2021-09-03] MEDS: escitalopram 10 mg Tablet 20 MG PO (08:30)
[2021-09-03] MEDS: cholecalciferol (vitamin D3) 1,000 unit Tablet 1000 UNIT PO (08:30)
[2021-09-03] MEDS: aspirin 81 mg Chew Tablet PO (08:30)
[2021-09-03] MEDS: artificial tears Op Soln 15 mL Btl 1 DROP EYE-LEFT (10:23)
[2021-09-03 11:39] LABS: Glucose Point of Care 102 mg/dL (70-110)
--- NOTE | 2021-09-03 11:49 | PC.CHAP ---
Pastoral Care Encounter/Spiritual Assessment Type of Contact [] Declined offset press assistant visit [] Patient/Family/Request visit [] Outpatient visit [] Follow-up visit [] Physician referral [] Code/Alert [x] Routine visit [] Staff referral [] Actively dying [] Patient sleeping [] Family support [] [] Out of room [] Palliative care [] [] Receiving care in room [] Pre-surgical visit [] Trauma [] Long length of stay [] ICU visit [] Other: Relational/Emotional Strength [] Patient feels connected with others/family/visitors/staff [] Distress [] Loneliness/isolation [] Abandonment Spirituality of Patient [] Person of [place] [] Attends Jehovah[employer]S Witness of their [place] [] Believes in Prayer [] Reads Bible or Orthodox materials [] There are Spiritual issues to be addressed Mailroom Clerk Interventions [x] Prayer [] Active listening [] Non-anxious presence [] Spiritual/emotional support [] Crisis/trauma care [] Spiritual counseling [] Bereavement support [] Provided bereavement packet [] Provided Bible/devotional materials [] Provided toy/stuffed animal, coloring book to patient or family member [] Provided Communion [] Anointing/[place] [] Salvation [x] Completed spiritual assessment [] Other: Impact on Illness or Injury [] Angry [] Fearful [] Anxious [] Often cries [] Exhaustion [] Unable to work [] Unable to attend yarsanism [] Unable to walk/stand [] Unable to read [] Unable to drive [] Unable to eat/drink [] Unable to sleep [] Unable to be with family [] Patient intubated [] Other: Summary Time spent with patient
[2021-09-03] MEDS: paricalcitol 2 mcg/mL SDV 1 mL IV (11:54)
--- NOTE | 2021-09-03 12:26 | P.PN_ITS ---
Subjective Subjective: Patient was seen in clinic, he sitting up in bed, she tells me that she is feeling better after her dialysis session yesterday, she tells me that she gets chest pain on and off, but it is no different recently, not really associate with exertion, typically happens or shortness of breath, no lighth eadedness, no dizziness, no nausea, vomiting, no fevers, chills, no cough Vitals/I&O/Wt Last Vital Signs Temp 98 F 09/03/21 11:05 Pulse 60 09/03/21 11:05 Resp 15 09/03/21 11:05 BP 135/72 09/03/21 11:05 Pulse Ox 96 09/03/21 11:05 09/02/21 09/03/21 09/03/21 22:59 06:59 14:59 Intake Total 240 / 240 120 / 120 Balance 240 / 240 120 / 120 Weight last 48 hrs Weight 86.183 kg Physical Exam Const: COMMON NORMALS: no acute distress and patient oriented x3 Resp: COMMON NORMALS: normal respiratory effort, No retractions, No use of accessory muscles and clear to auscultation bilaterally AUSCULTATION: clear to auscultation bilaterally Cardio: COMMON NORMALS: regular rate, regular rhythm, S1 normal heart sound present and S2 normal heart sound present RATE: regular rate RHYTHM: regular rhythm HEART SOUNDS: S1 normal heart sound present and S2 normal heart sound present GI: COMMON NORMALS: Normal to inspection, nondistended, normoactive bowel sounds present, Soft to palpation and non-tender PALPATION: Yes Soft to palpation Extremity: COMMON NORMALS: no pedal edema OTHER: Right below-knee amputation Neuro: COMMON NORMALS: patient oriented x3 Psych: COMMON NORMALS: mental status grossly normal Data : 09/03/21 02:42 09/03/21 02:42 Micro: Microbiology 09/02/21 12:15 Blood Culture - Preliminary Blood SPECIMEN COLLECTED 09/02/21 12:00 Blood Culture - Preliminary Blood SPECIMEN COLLECTED A&P Assessment and plan (1) Acute dyspnea: -Clinically improved, currently on 2 L, will get dialysis today, Multifactorial from accelerated hypertension hypertension and acute pulmonary edema in the setting of a known patient on chronic dialysis. Had dialysis yesterday. Unclear to me at the singular point in time if she is having more difficult to control blood pressures contributing, effect of rebound hypertension with clonidine use, changes in diet contributing to fluid retention, noncompliance with medical care, acute vascular process, less likely to be infection, or other process. Status: Acute (2) Congestive heart failure: -Clinically improving, continue dialysis -Clinic acute on chronic diastolic with preserved ejection fraction last echocardiogram, almost sounds like flash pulmonary edema or variant of such with rapid onset of symptoms Status: Chronic Qualifiers: Heart failure chronicity: acute on chronic Heart failure type: diastolic Qualified Code(s): I50.33 - Acute on chronic diastolic (congestive) heart failure (3) Accelerated hypertension: Chronically on amlodipine, clonidine and Lasix. Rebound hypertension from clonidine may be a contributing factor be on the above. Status: Acute (4) ESRD (end stage renal disease) on dialysis: Wednesdays and Fridays, still makes urine Status: Chronic (5) CAD (coronary artery disease): Has had previous angioplasty and stent placement in the LAD, most recent in 2019, chronically on aspirin, Plavix looks to have been stopped earlier this month after a year of treatment. Last stress test available here was in March 2020. -Negative delta troponin, no recurrent complaints of chest pain, EKG no acute ST-T wave changes -We will have patient follow-up with cardiology as outpatient, for consideration of stress testing Status: Chronic Qualifiers: Coronary Disease-Associated Artery/Lesion type: [place] artery [place] vs. transplanted heart: ass[place] and sioux heart Associated angina: with stable angina Qualified Code(s): I25.118 - Atherosclerotic heart disease of [place] si[place] coronary artery with other forms of angina pectoris (6) PAD (peripheral artery disease): History of right BKA Status: Chronic (7) Hyperlipidemia: Chronically on statin therapy and fish oil Status: Chronic Qualifiers: Hyperlipidemia type: unspecified Qualified Code(s): E78.5 - Hyperlipidemia, unspecified (8) Diabetes mellitus, with long-term current use of insulin: Chronically on insulin Status: Chronic Qualifiers: Diabetes mellitus complication detail: with other circulatory complications Diabetes mellitus complication status: with circulatory complication Diabetes mellitus type: type 2 Qualified Code(s): E11.59 - Type 2 diabetes mellitus with other circulatory complications; Z79.4 - assisted (current) use of insulin (9) Sleep apnea: CPAP Status: Chronic Qualifiers: Sleep apnea type: obstructive Qualified Code(s): G47.33 - Obstructive sleep apnea (adult) (pediatric) (10) Hypothyroidism: Chronically on levothyroxine Status: Chronic Qualifiers: Hypothyroidism type: acquired Qualified Code(s): E03.9 - Hypothyroidism, unspecified (11) Anxiety and depression: Chronically on escitalopram and as needed clonazepam Status: Acute (12) Anemia in chronic kidney disease: Stable Status: Chronic Qualifiers: Chronic kidney disease stage: on chronic dialysis Qualified Code(s): N18.6 - End stage renal disease; D63.1 - Anemia in chronic kidney disease; Z99.2 - Dependence on renal dialysis 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 as she requires dialysis today, possibly tomorrow Nephrology consultation for both emergent and usual dialysis, appreciate assistance with care Elevated troponins, EKG no acute ST-T wave changes, no chest pain complaints, will require outpatient stress test Limited echocardiogram to evaluate ejection fraction Wean oxygen as able after dialysis Adjust clonidine dosing for now Status post Nitropaste in the emergency room, will continue as needed nitroglycerin Also received hydralazine, IV Lasix, IV metoprolol in the emergency room, hold for now Evaluate blood pressures post emergent dialysis, adjusting therapy as needed Ensure has clonazepam available if needed for anxiety Continue home Lasix 40 mg daily Continue aspirin and statin therapy Continue home levothyroxine Long-acting insulin at a lower dose than usual with sliding scale CPAP with sleep Subcu heparin for DVT prophylaxis PPI for GI prophylaxis Supportive care otherwise Plans were discussed with patient and she was given an opportunity to ask questions Anticipate discharge home when stable with continued outpatient hemodialysis Full code Attestations Medical Necessity Statement*: Patient requires hospitalization for fluid overload, pulmonary edema, hypoxia, requiring dialysis, inpatient mission, greater than 2 midnights Coding Level of Care Code 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 transplanted heart: [place] and sioux heart Associated angina: with stable angina PAD (peripheral artery disease) I73.9 Hyperlipidemia E78.5 Hyperlipidemia type: unspecified Diabetes mellitus, with long-term current use of insulin E11.59; Z79.4 Diabetes mellitus complication detail: with other circulatory complications Diabetes mellitus complication status: with circulatory complication Diabetes mellitus type: type 2 Sleep apnea G47.33 Sleep apnea type: obstructive Hypothyroidism E03.9 Hypothyroidism type: acquired Anxiety and depression F41.9; F32.A Anemia in chronic kidney disease N18.6; D63.1; Z99.2 Chronic kidney disease stage: on chronic dialysis
[2021-09-03] MEDS: heparin, porcine 1,000 unit/mL INJ 10 mL 10000 UNIT HE (14:27)
[2021-09-03 17:26] LABS: Glucose Point of Care 91 mg/dL (70-110)
[2021-09-03 20:24] LABS: Glucose Point of Care 134 mg/dL (70-110)
[2021-09-03] MEDS: atorvastatin 40 mg Tablet PO (20:37)
--- NOTE | 2021-09-03 23:37 | PC.NURSE ---
Dr. Zamorano notified of patient having thoracentesis tomorrow. Ordered to hold 0630 Heparin dose.
[2021-09-04] VITALS (17 sets, daily range): BP systolic 139–177; BP diastolic 65–81; PULSE 59–95; RESP 11–24; TEMP 36.9–37.1; O2SAT 90–99
[2021-09-04] MEDS: morphine 4 mg/mL SDV 1 mL 2 MG IVP ×3 (01:59→22:41)
[2021-09-04] MEDS: levothyroxine 150 mcg Tablet PO (04:02)
[2021-09-04] MEDS: FUROsemide 40 mg Tablet PO (04:02)
[2021-09-04] MEDS: acetaminophen 325 mg Tablet 650 MG PO (04:02)
[2021-09-04 04:17] LABS: Basophils % 0.6 %; Eosinophils # 0.3 10^3/uL (0.0-0.8); Eosinophils % 6.4 %; Hematocrit 34.9 % (37.0-47.0); Hemoglobin 10.9 g/dL (11.5-15.3); Lymphocytes # 0.9 10^3/uL (0.8-4.8); Lymphocytes % 18.6 %; Mean Corpuscular HGB Conc 31.2 g/dL (30.0-36.0); Mean Corpuscular Hemoglobin 32.3 pg (28.0-34.0); Mean Corpuscular Volume 103.6 fl (81-99); Mean Platelet Volume 11.1 fL (7.4-10.4); Monocytes # 0.4 10^3/uL (0.2-0.9); Monocytes % 8.5 %; Neutrophils # 3.06 10^3/uL (1.8-7.7); Neutrophils % 65.5 %; Nucleated Red Blood Cells % 0 %; Platelet Count 178 10^3/cmm (130-400); Red Blood Count 3.37 10^6/uL (4.1-5.3); Red Cell Distribution Width 13.4 % (12.1-15.1); White Blood Count 4.7 10^3/uL (4.0-10.0)
[2021-09-04 04:39] LABS: Alanine Aminotransferase 16 U/L (0-33); Albumin Level 3.3 g/dL (3.5-5.2); Alkaline Phosphatase 183 IU/L (35-105); Aspartate Amino Transferase 20 U/L (0-32); Blood Urea Nitrogen 24 mg/dL (6-20); Calcium 8.3 mg/dL (8.5-10.5); Carbon Dioxide 26 mmol/L (22-29); Chloride 97 mmol/L (98-107); Ferritin 913 ng/mL (15-150); Globulin 2.5 g/dL (1.3-4.6); Glomerular Filtration Rate 8.9 mL/min (90-130); Glucose 102 mg/dL (65-115); Iron 76 ug/dL (37-145); Magnesium 1.8 mg/dL (1.7-2.3); Osmolality Calculated 282 mOsm/kg (285-295); Percent Saturation 48.1 % (20-50); Phosphorus 3.7 mg/dL (2.5-4.5); Sodium 134 mmol/L (136-145); Total Bilirubin 0.3 mg/dL (0.15-1.2); Total Iron Binding Capacity 158 mcg/dl; Total Protein 5.8 g/dL (6.6-8.7); Unsaturated Iron Binding 82 ug/dL (112-347)
[2021-09-04 06:33] LABS: Glucose Point of Care 102 mg/dL (70-110)
[2021-09-04] MEDS: ondansetron 2 mg/ML SDV 2 mL 4 MG IVP (06:56)
--- NOTE | 2021-09-04 07:07 | P.PN_ITS ---
Subjective Subjective: n/v/abd pain. still sob, less swollen. weak. [place]. BP elevated Medications: Reviewed: Yes Medication Review Details: Current Medications Acetaminophen (Acetaminophen 325 Mg Tablet) 650 mg PO Q6H PRN PRN Reason: Mild/Mod Pain Or Temp >/= 101 Last Admin: 09/04/21 04:02 Dose: 650 mg Documented by: Artificial Tears (Artificial Tears Op Soln 15 Ml Btl) 1 drop EYE-LEFT PRN [facility] Last Admin: 09/03/21 10:23 Dose: 1 applic Documented by: Aspirin (Aspirin 81 Mg Chew Tablet) 81 mg PO DAILY@08 [facility] Last Admin: 09/03/21 08:30 Dose: 81 mg Documented by: Atorvastatin Calcium (Atorvastatin 40 Mg Tablet) 40 mg PO DAILY@20 [facility] Last Admin: 09/03/21 20:37 Dose: 40 mg Documented by: Bisacodyl (Bisacodyl 5 Mg Tablet) 10 mg PO DAILY PRN; Protocol PRN Reason: Constipation (see protocol) Clonazepam (Clonazepam 0.5 Mg Tablet) 0.25 mg PO BID PRN PRN Reason: ANXIETY Last Admin: 09/02/21 22:14 Dose: 0.25 mg Documented by: Clonidine HCl (Clonidine 0.1 Mg Tablet) 0.1 mg PO Q8H PRN PRN Reason: SYSTOLIC BLOOD PRESSURE Dextrose (Dextrose 50% Syringe 50 Ml) 25 ml IVP ONCE PRN; Protocol PRN Reason: hypoglycemia protocol Dextrose (Dextrose 50% Syringe 50 Ml) 50 ml IVP PRN PRN; Protocol PRN Reason: hypoglycemia protocol Escitalopram Oxalate (Escitalopram 10 Mg Tablet) 20 mg PO DAILY [facility] Last Admin: 09/03/21 08:30 Dose: 20 mg Documented by: Furosemide (Furosemide 40 Mg Tablet) 40 mg PO QAM [facility] Last Admin: 09/04/21 04:02 Dose: 40 mg Documented by: Glucagon (Glucagon 1 Mg/Ml Inj 1 Ml) 1 mg IM ONCE PRN; Protocol PRN Reason: Adult Acute Hypoglycemia Prot. Heparin Sodium (Porcine) (Heparin 5,000 Unit/Ml Inj 1 Ml) 5,000 unit SUBCUT Q12H [facility] Last Admin: 09/03/21 23:37 Dose: Not Given Documented by: Albumin Human (Albumin) 12.5 gm in 50 mls @ 60 mls/hr IV PRN PRN PRN Reason: Hypotension and/or symptomatic Dextrose (D5w) 500 mls @ 100 mls/hr IV ONCE PRN; Protocol PRN Reason: Adult Acute Hypoglycemia Prot Insulin Glargine (Insulin Glargine 100 Units/1 Ml) 10 unit SUBCUT BID@ [facility] Last Admin: 09/03/21 20:37 Dose: 10 unit Documented by: Insulin Human Lispro (Insulin Lispro 100 Unit/1 Ml) 0 unit SUBCUT BEDTIME [facility]; Protocol Last Admin: 09/03/21 20:25 Dose: Not Given Documented by: Insulin Human Lispro (Insulin Lispro 100 Unit/1 Ml) 0 unit SUBCUT TIDWM [facility]; Protocol Last Admin: 09/03/21 17:59 Dose: Not Given Documented by: Levothyroxine Sodium (Levothyroxine 150 Mcg Tablet) 150 mcg PO QAM [facility] Last Admin: 09/04/21 04:02 Dose: 150 mcg Documented by: Morphine Sulfate (Morphine 4 Mg/Ml Sdv 1 Ml) 2 mg IVP Q4H PRN PRN Reason: SEVERE PAIN Last Admin: 09/04/21 07:03 Dose: 2 mg Documented by: Multivitamins (J-Cnfgdks-Dvwnbbh C Tablet) 1 each PO DAILY [facility] Last Admin: 09/03/21 08:30 Dose: 1 each Documented by: Nitroglycerin (Nitroglycerin 0.4 Mg Sublingual Tablet) 0.4 mg SUBLINGUAL Q5M PRN PRN Reason: Chest Pain Ondansetron HCl (Ondansetron 4 Mg Tablet) 8 mg PO Q8H PRN PRN Reason: NAUSEA Ondansetron HCl (Ondansetron 2 Mg/Ml Sdv 2 Ml) 4 mg IVP Q8H PRN PRN Reason: vomiting, or N/V if npo Last Admin: 09/04/21 06:56 Dose: 4 mg Documented by: Pantoprazole Sodium (Pantoprazole Dr 40 Mg Tablet) 40 mg PO DAILY@08 [facility] Last Admin: 09/03/21 08:30 Dose: 40 mg Documented by: Paricalcitol (Paricalcitol 2 Mcg/Ml Sdv 1 Ml) 2 mcg IV QMWF [facility] Last Admin: 09/03/21 11:54 Dose: 2 mcg Documented by: Vitamin D (Cholecalciferol (Vitamin D3) 1,000 Unit Tablet) 1,000 unit PO DAILY@08 [facility] Last Admin: 09/03/21 08:30 Dose: 1,000 unit Documented by: Vitals/I&O/Wt Last Vital Signs Temp 98.6 F 09/04/21 03:20 Pulse 64 09/04/21 03:29 Resp 17 09/04/21 07:03 BP 177/81 09/04/21 03:20 Pulse Ox 99 09/04/21 03:20 09/03/21 09/04/21 09/04/21 22:59 06:59 14:59 Intake Total 240 / 360 300 / 660 Balance 240 / 360 300 / 660 Weight last 48 hrs Weight 86.183 kg Physical Exam Narrative: sitting up in bed, vomited, sob in bed, nc o2 heent- nc/at, eomi, anicteric facial edema neck supple Rt Sided permacath lungs dull bases heart reg abd soft, mild diffuse tenderness, nd ext rt BKA, no edema neuro- a,a, o x 3 Data : 09/04/21 03:50 09/04/21 03:50 Micro: Microbiology 09/02/21 12:00 Blood Culture - Preliminary Blood NEGATIVE TO DATE 09/02/21 12:15 Blood Culture - Preliminary Blood NEGATIVE TO DATE A&P Assessment and plan (1) ESRD (end stage renal disease) on dialysis: 56 yr old female 1. ESRD- s/p extra SUF and full HD yesterday -repeat HD in am- 4 hrs, remove 3l, 3 k 2. HTN- pain control and thoracentesis. change clonidine to 0.1 bid 3. CAD- follows w/ Dr. Ignacio 4. CHF-echo from December 2020- EF 55%. grade 2/4 diastolic dysfunction. consider repeat echo -bnp 9295- monitor w/ volume removal -acute on chronic diastolic dysfunction -for thoracentesis of b/l moderate to large pleural effusions- 5. n/v per medicine - zofran 6. hypothyroidism- tsh 4.77 in 2021 7. DM control per PMD 8.hgb okay for ESRD 9. vit d 37 in jul 2021 -normal phos -secondary hyperparathyroidism- pth 561- improving- zemplar w/ HD seen and examined w/ HD RN- telehealth visit -informed consent for telehealth visit obtained time spent 30 min Status: Chronic Plan as above Attestations Medical Necessity Statement*: n/v/ abd pain/ htn/ esrd/ cp Time Spent in Patient Care: 16 - 35 minutes (>than 50% of time spent in counselling and/or direct pt care on unit) . Coding Level of Care Code Acute Stitch Burnisher for Chg Fwd Diagnoses ESRD (end stage renal disease) on dialysis N18.6; Z99.2
[2021-09-04 07:52] LABS: INR 0.95 (0.8-1.2)
--- NOTE | 2021-09-04 08:49 | PC.NURSE ---
Bedside rounding with provider verbal Instructions to give GI cocktail Po x1
[2021-09-04] MEDS: lidocaine 2% viscous 15 ML, aluminum-mag hydrox-simethicon 30 ML, sucralfate oral liq 1 GM PO (09:08)
[2021-09-04] MEDS: b-complex-vitamin c Tablet 1 EACH PO (09:13)
[2021-09-04] MEDS: cloNIDine 0.1 mg Tablet PO ×2 (09:13→17:06)
[2021-09-04] MEDS: aspirin 81 mg Chew Tablet PO (09:13)
[2021-09-04] MEDS: escitalopram 10 mg Tablet 20 MG PO (09:13)
[2021-09-04] MEDS: cholecalciferol (vitamin D3) 1,000 unit Tablet 1000 UNIT PO (09:13)
[2021-09-04] MEDS: pantoprazole DR 40 mg Tablet PO (09:14)
[2021-09-04] MEDS: insulin glargine 100 units/1 mL 10 UNIT SUBCUT ×2 (09:17→21:57)
--- NOTE | 2021-09-04 10:24 | PC.NURSE ---
okayed to restart renal dialysis diet
--- NOTE | 2021-09-04 10:47 | XR_ITS ---
WS: [id number] Exam: XR cervical spine 3V* [id number] Date/Time of Exam: 09/04/2021 10:47 AM Reason For Exam: pain No fracture or dislocation. Disc spaces are preserved. Posterior elements are intact. The odontoid ap pears normal. Double-lumen right IJ catheter ends in the lower one third of the SVC. Bilateral caroti d artery calcifications XR/XR cervical spine 3V* [id number] IMPRESSION: 1. Unremarkable C-spine study.
--- NOTE | 2021-09-04 10:47 | XR_ITS ---
WS: [id number] Exam: XR thoracic spine 2V [id number] Date/Time of Exam: 09/04/2021 10:47 AM Reason For Exam: pain No fracture or dislocation noted. Paraspinal soft tissues are unremarkable. Incidentally noted is con solidating infiltrate in the left lower lobe suggesting pneumonia. A double lumen central line appear s to end in the lower one third of the SVC. XR/XR thoracic spine 2V [id number] IMPRESSION: 1. Unremarkable thoracic spine study. 2. Consolidating pneumonia in the left lower lobe. A detailed PA and lateral ch est radiograph would be helpful for further workup. 3. Double-lumen central line in place appearing to be in satisfactory position.
[2021-09-04 10:58] LABS: Glucose Point of Care 117 mg/dL (70-110)
--- NOTE | 2021-09-04 11:00 | US_ITS ---
WS: [id number] INDICATION: Pleural effusion TECHNIQUE: Bilateral pleural effusions assess for thoracentesis FINDINGS: Small bilateral pleural effusions RIGHT greater than LEFT with compressive atelectasis in t he lung bases. Insufficient fluid for thoracentesis. Compressive lung also obscures available windows for thoracentesis. US/US chest [id number] IMPRESSION: Small RIGHT greater than LEFT pleural effusions with compressive at electasis.
--- NOTE | 2021-09-04 14:09 | XR_ITS ---
WS: [id number] Exam: XR chest 1V portable [id number] Date/Time of Exam: 09/04/2021 2:15 PM Reason For Exam: PNA? Comparison 09/02/2021. Improving bibasal infiltrates noted since previous study. The heart remains enlarged and unchanged in size. There is increased pulmonary vascularity. Right-sided double-lumen central line is in place en ding in the lower one third of the SVC. Regional bony elements are intact. The mediastinum is not wid ened. XR/XR chest 1V portable [id number] IMPRESSION: 1. Improving bibasal infiltrates since previous study. 2. Cardiac enlargement with increased pulmonary vascularity.
[2021-09-04 15:59] LABS: Glucose Point of Care 104 mg/dL (70-110)
--- NOTE | 2021-09-04 16:00 | P.PN_ITS ---
Subjective Subjective: Patient was seen this morning, she continues to complain of some epigastric discomfort, pain between her shoulder blades, no nausea, no vomiting, no lightheadedness, no dizziness Vitals/I&O/Wt Last Vital Signs Temp 98.5 F 09/04/21 12:00 Pulse 60 09/04/21 14:00 Resp 14 09/04/21 12:00 BP 139/65 09/04/21 12:00 Pulse Ox 90 09/04/21 12:00 09/04/21 09/04/21 09/04/21 06:59 14:59 22:59 Intake Total 300 / 660 660 / 660 Output Total / Balance 300 / 660 635 / 635 Physical Exam Const: COMMON NORMALS: no acute distress and patient oriented x3 Resp: COMMON NORMALS: normal respiratory effort, No retractions, No use of accessory muscles and clear to auscultation bilaterally AUSCULTATION: clear to auscultation bilaterally Cardio: COMMON NORMALS: regular rate, regular rhythm, S1 normal heart sound present and S2 normal heart sound present RATE: regular rate RHYTHM: regular rhythm HEART SOUNDS: S1 normal heart sound present and S2 normal heart sound present GI: COMMON NORMALS: Normal to inspection, nondistended, normoactive bowel sounds present, Soft to palpation, non-tender and No hepatosplenomegaly present PALPATION: Yes Soft to palpation and Yes No hepatosplenomegaly present Extremity: COMMON NORMALS: no pedal edema Neuro: COMMON NORMALS: patient oriented x3 Psych: COMMON NORMALS: mental status grossly normal Data : 09/04/21 03:50 09/04/21 03:50 Micro: Microbiology 09/02/21 12:00 Blood Culture - Preliminary Blood NEGATIVE TO DATE 09/02/21 12:15 Blood Culture - Preliminary Blood NEGATIVE TO DATE A&P Assessment and plan (1) Acute dyspnea: -Clinically improving, currently on 2 L, will get dialysis tomorrow Multifactorial from accelerated hypertension hypertension and acute pulmonary edema in the setting of a known patient on chronic dialysis. Had dialysis yesterday. Unclear to me at the singular point in time if she is having more difficult to control blood pressures contributing, effect of rebound hyperte nsion with clonidine use, changes in diet contributing to fluid retention, noncompliance with medical care, acute vascular process, less likely to be infection, or other process. Status: Acute (2) Congestive heart failure: -Clinically improving, continue dialysis -Clinic acute on chronic diastolic with preserved ejection fraction last echocardiogram, almost sounds like flash pulmonary edema or variant of such with rapid onset of symptoms Status: Chronic Qualifiers: Heart failure chronicity: acute on chronic Heart failure type: diastolic Qualified Code(s): I50.33 - Acute on chronic diastolic (congestive) heart failure (3) Accelerated hypertension: Chronically on amlodipine, clonidine and Lasix. Rebound hypertension from clonidine may be a contributing factor be on the above. Status: Acute (4) ESRD (end stage renal disease) on dialysis: Wednesdays and Fridays, still makes urine Status: Chronic (5) CAD (coronary artery disease): Has had previous angioplasty and stent placement in the LAD, most recent in 2019, chronically on aspirin, Plavix looks to have been stopped earlier this month after a year of treatment. Last stress test available here was in March 2020. -Negative delta troponin, no recurrent complaints of chest pain, EKG no acute ST-T wave changes -We will have patient follow-up with cardiology as outpatient, for consideration of stress testing Status: Chronic Qualifiers: Coronary Disease-Associated Artery/Lesion type: [place] artery [place] vs. transplanted heart: [place] heart Associated angina: with stable angina Qualified Code(s): I25.118 - Atherosclerotic heart disease of [place] coronary artery with other forms of angina pectoris (6) PAD (peripheral artery disease): History of right BKA Status: Chronic (7) Hyperlipidemia: Chronically on statin therapy and fish oil Status: Chronic Qualifiers: Hyperlipidemia type: unspecified Qualified Code(s): E78.5 - Hyperlipidemia, unspecified (8) Diabetes mellitus, with long-term current use of insulin: Chronically on insulin Status: Chronic Qualifiers: Diabetes mellitus complication detail: with other circulatory complications Diabetes mellitus complication status: with circulatory complication Diabetes mellitus type: type 2 Qualified Code(s): E11.59 - Type 2 diabetes mellitus with other circulatory complications; Z79.4 - 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 terminal operator (current) use of insulin (9) Sleep apnea: CPAP Status: Chronic Qualifiers: Sleep apnea type: obstructive Qualified Code(s): G47.33 - Obstructive sleep apnea (adult) (pediatric) (10) Hypothyroidism: Chronically on levothyroxine Status: Chronic Qualifiers: Hypothyroidism type: acquired Qualified Code(s): E03.9 - Hypothyroidism, unspecified (11) Anxiety and depression: Chronically on escitalopram and as needed clonazepam Status: Acute (12) Anemia in chronic kidney disease: Stable Status: Chronic Qualifiers: Chronic kidney disease stage: on chronic dialysis Qualified Code(s): N18.6 - End stage renal disease; D63.1 - Anemia in chronic kidney disease; Z99.2 - Dependence on renal dialysis Plan Back pain, epigastric discomfort, will do x-rays of lumbar spine Epigastric discomfort, will try GI cocktail Bilateral pleural effusions, consult radiology for possible thoracocentesis Elevated troponins, EKG no acute ST-T wave changes, no chest pain complaints, will require outpatient stress test Limited echocardiogram to evaluate ejection fraction Left Ventricle ?Normal left ventricular size, systolic function and wall ?thickness, with no regional wall motion abnormalities.? Normal ?left ventricular wall thickness. Normal diastolic filling ?pattern.? Left ventricular ejection fraction is estimated at 60 ?%. ?Right Ventricle ?The right ventricle is normal in size and function. ?Right Atrium ?The right atrium is normal in size. ?Left Atrium ?The left atrium is normal in size. ?Mitral Valve ?Structurally normal mitral valve without significant stenosis or ?prolapse.? There is no mitral regurgitation. ?Aortic Valve ?Structurally normal aortic valve without significant sclerosis ?or stenosis.? There is no aortic regurgitation. ?Tricuspid Valve ?Structurally normal tricuspid valve without significant stenosis ?or regurgitation.? Pulmonary artery systolic pressure is normal. ?Pulmonic Valve ?Structurally normal pulmonic valve without significant stenosis.? ?There is no pulmonic regurgitation. ?Pericardium ?Normal pericardium without effusion. ?Aorta ?Normal ascending aorta dimension. ?CONCLUSIONS ?Normal transthoracic echocardiogram. Wean oxygen as able after dialysis Adjust clonidine dosing for now Ensure has clonazepam available if needed for anxiety Continue home Lasix 40 mg daily Continue aspirin and statin therapy Continue home levothyroxine Long-acting insulin at a lower dose than usual with sliding scale CPAP with sleep Subcu heparin for DVT prophylaxis PPI for GI prophylaxis Supportive care otherwise Plans were discussed with patient and she was given an opportunity to ask questions Anticipate discharge home when stable with continued outpatient hemodialysis Full code Attestations Medical Necessity Statement*: Patient requires hospitalization for fluid over load, chest pain Coding Level of Care Code Acute 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 transplanted heart: [place] heart Associated angina: with stable angina PAD (peripheral artery disease) I73.9 Hyperlipidemia E78.5 Hyperlipidemia type: unspecified Diabetes mellitus, with long-term current use of insulin E11.59; Z79.4 Diabetes mellitus complication detail: with other circulatory complications Diabetes mellitus complication status: with circulatory complication Diabetes mellitus type: type 2 Sleep apnea G47.33 Sleep apnea type: obstructive Hypothyroidism E03.9 Hypothyroidism type: acquired Anxiety and depression F41.9; F32.A Anemia in chronic kidney disease N18.6; D63.1; Z99.2 Chronic kidney disease stage: on chronic dialysis
[2021-09-04] MEDS: heparin 5,000 unit/mL INJ 1 mL 5000 UNIT SUBCUT (18:47)
[2021-09-04 20:21] LABS: Glucose Point of Care 190 mg/dL (70-110)
[2021-09-04] MEDS: insulin lispro 100 unit/1 mL SUBCUT (21:57)
[2021-09-04] MEDS: atorvastatin 40 mg Tablet PO (21:57)
[2021-09-05] VITALS (11 sets, daily range): BP systolic 136–163; BP diastolic 65–76; PULSE 56–66; RESP 12–18; TEMP 36.8–37.1; O2SAT 82–100
[2021-09-05 02:14] LABS: Glucose Point of Care 58 mg/dL (70-110)
[2021-09-05] MEDS: morphine 4 mg/mL SDV 1 mL 2 MG IVP ×2 (02:53→14:00)
[2021-09-05] MEDS: CLONazepam 0.5 mg Tablet 0.25 MG PO (02:54)
[2021-09-05 03:21] LABS: Glucose Point of Care 75 mg/dL (70-110)
[2021-09-05 05:13] LABS: Basophils % 0.5 %; Eosinophils # 0.2 10^3/uL (0.0-0.8); Hematocrit 33.5 % (37.0-47.0); Hemoglobin 10.4 g/dL (11.5-15.3); Lymphocytes # 0.7 10^3/uL (0.8-4.8); Lymphocytes % 12.7 %; Mean Corpuscular Hemoglobin 32.6 pg (28.0-34.0); Mean Platelet Volume 10.9 fL (7.4-10.4); Monocytes # 0.3 10^3/uL (0.2-0.9); Monocytes % 5.7 %; Neutrophils % 76.4 %; Nucleated Red Blood Cells % 0 %; Platelet Count 178 10^3/cmm (130-400); Red Blood Count 3.19 10^6/uL (4.1-5.3); Red Cell Distribution Width 13.5 % (12.1-15.1); White Blood Count 5.8 10^3/uL (4.0-10.0)
[2021-09-05 05:15] LABS: Glucose Point of Care 127 mg/dL (70-110)
[2021-09-05 05:42] LABS: Alanine Aminotransferase 14 U/L (0-33); Albumin Level 3.3 g/dL (3.5-5.2); Alkaline Phosphatase 167 IU/L (35-105); Anion Gap 16.5 (5-19); Aspartate Amino Transferase 19 U/L (0-32); Blood Urea Nitrogen 35 mg/dL (6-20); Carbon Dioxide 24 mmol/L (22-29); Chloride 102 mmol/L (98-107); Globulin 2.3 g/dL (1.3-4.6); Glomerular Filtration Rate 6.1 mL/min (90-130); Glucose 103 mg/dL (65-115); Magnesium 1.9 mg/dL (1.7-2.3); Osmolality Calculated 294 mOsm/kg (285-295); Phosphorus 4.7 mg/dL (2.5-4.5); Potassium 4.5 mmol/L (3.5-5.1); Sodium 138 mmol/L (136-145); Total Bilirubin 0.3 mg/dL (0.15-1.2); Total Protein 5.6 g/dL (6.6-8.7)
--- NOTE | 2021-09-05 05:44 | PC.NURSE ---
Pt lying in bed resting with eyes closed. Resp even and non-labored no distress or sob noted. Pt had no c/o pain or discomfort the present time. No needs voiced. Call light in reach.
[2021-09-05] MEDS: levothyroxine 150 mcg Tablet PO (06:56)
[2021-09-05] MEDS: heparin 5,000 unit/mL INJ 1 mL 5000 UNIT SUBCUT (06:56)
[2021-09-05] MEDS: FUROsemide 40 mg Tablet PO (06:56)
[2021-09-05] MEDS: cholecalciferol (vitamin D3) 1,000 unit Tablet 1000 UNIT PO (08:05)
[2021-09-05] MEDS: aspirin 81 mg Chew Tablet PO (08:05)
[2021-09-05] MEDS: b-complex-vitamin c Tablet 1 EACH PO (08:05)
[2021-09-05] MEDS: escitalopram 10 mg Tablet 20 MG PO (08:05)
[2021-09-05] MEDS: pantoprazole DR 40 mg Tablet PO (08:05)
--- NOTE | 2021-09-05 10:28 | P.PN_ITS ---
Subjective Subjective: Review issues with Ms. Herzog today, her breathing is significantly improved. Blood pressure has ranged between 130 and 160 systolic. Minimal global edema. She denies any pain. Eating and drinking well. Vitals/I&O/Wt Last Vital Signs Temp 98.4 F 09/05/21 07:53 Pulse 60 09/05/21 07:53 Resp 13 09/05/21 07:53 BP 163/65 09/05/21 07:53 Pulse Ox 97 09/05/21 07:53 09/04/21 09/05/21 09/05/21 22:59 06:59 14:59 Intake Total 286 / 946 100 / 1046 100 / 100 Balance 286 / 921 100 / 1021 100 / 100 Physical Exam Narrative: Constitutional: Awake, comfortable HEENT: Wet mucosa, no jvp, non icteric Lungs: Bilaterally clear without discernible wheeze, rales in all lung zones CVS: S1 S2, no murmurs Abdo: Soft, BS ok Ext 4: Minimal edema, peripheral perfusion with no cyanosis Neurological: Grossly non-focal Data : 09/05/21 04:45 09/05/21 04:45 A&P Assessment and plan (1) ESRD (end stage renal disease) on dialysis: 1. ESRD Plan for dialysis today Continue M, W, F schedule Dose medication for GFR less than 15 2. Hemodynamics Blood pressure now much better controlled on combination antihypertensive therapy as well as ultrafiltration with dialysis Ultrafiltration today No other changes to her antihypertensives today 3. Pleural effusion Likely transudate of from fluid overload, now improving with effective ultrafiltration. 4. Chronic ESRD issues To be handled as an outpatient as part of standard monthly management including anemia, secondary hyperparathyroidism etc., continue home medication Thank you for consultation Zhou Mcfarland MD Nephrology [phone] Patient seen and examined via telemedicine, with the assistance of the bedside RN > 25 min spent in evaluation and mgmt of patient Status: Chronic Attestations Medical Necessity Statement*: eval for ESRD Coding Level of Care Code Acute Senior Microstrategy Developer for Chg Fwd Diagnoses ESRD (end stage renal disease) on dialysis N18.6; Z99.2
--- NOTE | 2021-09-05 10:41 | P.DS_ITS ---
Discharge Providers Date of Admission: 09/03/21 12:30 Date of Discharge: September 05, 2021 Attending Provider at Admission: Neeta Jeronimo MD Attending Provider at Discharge: Maikol Lemos MD Primary Care Provider: Jacob Sharp DO Diagnoses at Discharge Discharge Diagnosis (1) ESRD (end stage renal disease) on dialysis: Status: Chronic Reason for Visit Reason for Visit: SOB; bp issues Hospital Course Hospital Course This is a 56-year-old female with a past medical history of diastolic CHF, end- stage renal disease on dialysis, history of CAD, history of type 2 diabetes, history of carotid artery stenosis, history of generalized anxiety disorder, GERD, hypertension, hyperlipidemia, hypothyroidism, DOROTEO on CPAP who presents [facility] for acute dyspnea Acute dyspnea, likely secondary to fluid overload, pulmonary edema, patient received inpatient dialysis, clinically improved, discharged on resuming dialysis days Patient also had bilateral pleural effusions, improved with dialysis, not requiring thoracocentesis For CAD, history of angioplasty with stent placement in the LAD in 2019, currently on aspirin, last stress test was in March 2020, negative delta troponin, no complaints of chest pain, no acute ST-T wave changes, echocar diogram within normal limits. Follow-up with cardiology as outpatient for consideration of stress testing. Patient also had complaints of back pain, CT angiogram head no acute findings, x-rays were within normal limits, likely paraspinal muscle spasm, will discharge patient on antispasmodics. Physical Exam Const: COMMON NORMALS: no acute distress and patient oriented x3 Resp: COMMON NORMALS: normal respiratory effort, No retractions, No use of accessory muscles and clear to auscultation bilaterally AUSCULTATION: clear to auscultation bilaterally Cardio: COMMON NORMALS: regular rate, regular rhythm, S1 normal heart sound present and S2 normal heart sound present RATE: regular rate RHYTHM: r egular rhythm HEART SOUNDS: S1 normal heart sound present and S2 normal heart sound present GI: COMMON NORMALS: Normal to inspection, nondistended, normoactive bowel sounds present, Soft to palpation and non-tender PALPATION: Yes Soft to palpation Extremity: COMMON NORMALS: no pedal edema Neuro: COMMON NORMALS: patient oriented x3 Psych: COMMON NORMALS: mental status grossly normal Discharge Data Studies Completed and Pending Completed Studies During Hospitalization Category Date Time Status CT angio chest [id number] Urgent Cat Scan 09/03/21 05:03 Completed XR cervical spine 3V* [id number] Routine Exams 09/04/21 10:47 Completed XR chest 1V portable [id number] Routine Exams 09/04/21 14:09 Completed XR chest 1V portable [id number] Stat Exams 09/02/21 10:32 Completed XR thoracic spine 2V [id number] Routine Exams 09/04/21 10:47 Completed CV. echo limited [id number] Routine Ultrasound 09/02/21 Completed US chest [id number] Routine Ultrasound 09/04/21 11:00 Completed Pending at discharge Category Date Time Status Albumin Body Fluid Routine Lab 09/03/21 14:32 Ordered Amylase Pleural Fluid Routine Lab 09/03/21 14:32 Ordered Blood Culture Stat Lab 09/02/21 12:15 Results Body Fluid Analysis Routine Lab 09/03/21 14:32 Ordered Body Fluid Culture & GS Routine Lab 09/03/21 14:32 Ordered Complete Blood Count w/Auto AM LABS Lab 09/06/21 04:00 Ordered Complete Blood Count w/Auto AM LABS Lab 09/06/21 04:00 Ordered Complete Blood Count w/Auto AM LABS Lab 09/07/21 04:00 Ordered Creatinine Body Fluid Routine Lab 09/03/21 14:32 Ordered Glucose Pleural Fluid Routine Lab 09/03/21 14:32 Ordered Hematocrit Body Fluid Routine Lab 09/03/21 14:32 Ordered LDH Pleural Fluid Routine Lab 09/03/21 14:32 Ordered Magnesium AM LABS Lab 09/06/21 04:00 Ordered Mycobacteria, Culture w/Fluor Routine Lab 09/03/21 14:32 Ordered Phosphorus AM LABS Lab 09/06/21 04:00 Ordered Total Protein Pleural Fluid Routine Lab 09/03/21 14:32 Ordered Triglycerides, Pleural Fluid Routine Lab 09/03/21 14:32 Ordered pH Pleural Fluid Routine Lab 09/03/21 14:32 Ordered Cytology [PTH] Routine Pth 09/03/21 14:32 Ordered Radiology Impressions Chest CTA 09/03/21 05:03 IMPRESSION: 1. No aortic dissection. 2. Bilateral moderate to large pleural effusions. 3. Interlobular septal thickening with patchy bibasilar opacities at the lung bases. Findings may be seen with pneumonia or pulmonary edema. The Cervical Spine X-Ray 09/04/21 10:47 IMPRESSION: 1. Unremarkable C-spine study. Thoracic Spine X-Ray 09/04/21 10:47 IMPRESSION: 1. Unremarkable thoracic spine study. 2. Consolidating pneumonia in the left lower lobe. A detailed PA and lateral chest radiograph would be helpful for further workup. 3. Double-lumen central line in place appearing to be in satisfactory position. Chest Ultrasound 09/04/21 11:00 IMPRESSION: Small RIGHT greater than LEFT pleural effusions with compressive atelectasis. Chest X-Ray 09/04/21 14:09 IMPRESSION: 1. Improving bibasal infiltrates since previous study. 2. Cardiac enlargement with increased pulmonary vascularity. Laboratory Results WBC 5.8 10^3/uL (4.0-10.0) 09/05/21 04:45 RBC 3.19 10^6/uL (4.1-5.3) L 09/05/21 04:45 Hgb 10.4 g/dL (11.5-15.3) L 09/05/21 04:45 Hct 33.5 % (37.0-47.0) L 09/05/21 04:45 MCV 105.0 fl (81-99) H 09/05/21 04:45 MCH 32.6 pg (28.0-34.0) 09/05/21 04:45 MCHC 31.0 g/dL (30.0-36.0) 09/05/21 04:45 RDW 13.5 % (12.1-15.1) 09/05/21 04:45 Plt Count 178 10^3/cmm (130-400) 09/05/21 04:45 MPV 10.9 fL (7.4-10.4) H 09/05/21 04:45 Neut % (Auto) 76.4 % 09/05/21 04:45 Lymph % (Auto) 12.7 % 09/05/21 04:45 [place] % (Auto) 5.7 % 09/05/21 04:45 Eos % (Auto) 4.0 % 09/05/21 04:45 Baso % (Auto) 0.5 % 09/05/21 04:45 Neut # (Auto) 4.40 10^3/uL (1.8-7.7) 09/05/21 04:45 Lymph # (Auto) 0.7 10^3/uL (0.8-4.8) L 09/05/21 04:45 [place] # (Auto) 0.3 10^3/uL (0.2-0.9) 09/05/21 04:45 Eos # (Auto) 0.2 10^3/uL (0.0-0.8) 09/05/21 04:45 Baso # (Auto) 0.0 10^3/uL (0.0-0.1) 09/05/21 04:45 Nucleated RBC % (auto) 0 % 09/05/21 04:45 Nucleated RBCs # 0.0 /100WBC 09/05/21 04:45 PT 12.90 SECONDS (12.1-14.9) 09/04/21 07:10 INR 0.95 (0.8-1.2) 09/04/21 07:10 D-Dimer 1.54 ug/mIFEU (0-0.59) H 09/02/21 12:15 Specimen Type Arterial 09/02/21 11:00 Sample Site Brachial, right 09/02/21 11:00 ABG pH 7.40 (7.35-7.45) 09/02/21 11:00 ABG pCO2 47.5 mmHg (35-45) H 09/02/21 11:00 ABG pO2 53.0 mmHg (80.0-100.0) L 09/02/21 11:00 ABG HCO3 29.7 mmol/L (22-26) H 09/02/21 11:00 ABG O2 Saturation 87.7 09/02/21 11:00 ABG Base Excess 4.2 mmol/L (-2.0-2.0) H 09/02/21 11:00 Jason Test N/a 09/02/21 11:00 A-a O2 Gradient 5.0 mmHg (5-10) 09/02/21 11:00 Hematocrit 33.7 % (37-47) L 09/02/21 11:00 Hgb O2 Saturation 85.5 % (95-100) L 09/02/21 11:00 Carboxyhemoglobin 1.7 %THgb (0.4-20.1) 09/02/21 11:00 Methemoglobin 0.9 % (0.4-1.5) 09/02/21 11:00 Total Hemoglobin 11.0 g/dL (12-16) L 09/02/21 11:00 Sodium 138.0 mmol/L (131-143) 09/02/21 11:00 Potassium 4.5 mmol/L (3.5-5.0) 09/02/21 11:00 Glucose 113.0 mg/dL (70-115) 09/02/21 11:00 Ionized Calcium 0.9 mmol/L (1.1-1.4) L 09/02/21 11:00 O2 Delivery Device Nc 09/02/21 11:00 O2 Liters/Min 3.0 % 09/02/21 11:00 Template Layout Worker ID Hinja 09/02/21 11:00 Sodium 138 mmol/L (136-145) 09/05/21 04:45 Potassium 4.5 mmol/L (3.5-5.1) 09/05/21 04:45 Chloride 102 mmol/L (98-107) 09/05/21 04:45 Carbon Dioxide 24 mmol/L (22-29) 09/05/21 04:45 Anion Gap 16.5 (5-19) 09/05/21 04:45 BUN 35 mg/dL (6-20) H 09/05/21 04:45 Creatinine 7.0 mg/dL (0.5-0.9) H* 09/05/21 04:45 GFR Calculation 6.1 mL/min (90-130) L 09/05/21 04:45 Glucose 103 mg/dL (65-115) 09/05/21 04:45 POC Glucose 127 mg/dL (70-110) H 09/05/21 05:06 Calculated Osmolality 294 mOsm/kg (285-295) 09/05/21 04:45 Uric Acid 3.9 mg/dL (2.4-5.7) 09/02/21 18:36 Calcium 8.0 mg/dL (8.5-10.5) L 09/05/21 04:45 Phosphorus 4.7 mg/dL (2.5-4.5) H 09/05/21 04:45 Magnesium 1.9 mg/dL (1.7-2.3) 09/05/21 04:45 Iron 76 ug/dL (37-145) 09/04/21 03:50 TIBC 158 mcg/dl 09/04/21 03:50 % Saturation 48.1 % (20-50) 09/04/21 03:50 Unsat Iron Binding 82 ug/dL (112-347) L 09/04/21 03:50 Ferritin 913 ng/mL (15-150) H 09/04/21 03:50 Total Bilirubin 0.3 mg/dL (0.15-1.2) 09/05/21 04:45 AST 19 U/L (0-32) 09/05/21 04:45 ALT 14 U/L (0-33) 09/05/21 04:45 Alkaline Phosphatase 167 IU/L (35-105) H 09/05/21 04:45 Troponin T Baseline 110 ng/L (0-10) H* 09/02/21 12:15 Troponin T 120 Minute 105.0 ng/L (0-10) H 09/02/21 14:20 Delta Troponin T -5.0 ABS# (0-10) L 09/02/21 14:20 Troponin T Hi Sens 6Hr 106.4 ng/L (0-10) H 09/02/21 18:36 Troponin T Hi Sens 6Hr Delta -3.6 ng/L (0-12) L 09/02/21 18:36 NT-Pro-B Natriuret Pep 9295 pg/mL (0-125) H 09/02/21 12:15 Total Protein 5.6 g/dL (6.6-8.7) L 09/05/21 04:45 Albumin 3.3 g/dL (3.5-5.2) L 09/05/21 04:45 Globulin 2.3 g/dL (1.3-4.6) 09/05/21 04:45 Lipase 27 U/L (13-60) 09/02/21 12:15 PTH Intact 561.6 pg/mL (15-65) H 09/03/21 02:42 Calcium (PTH Intact) 7.7 mg/dL (8.5-10.5) L 09/03/21 02:42 Urine Color Yellow (Yellow) 09/02/21 14:00 Urine Appearance Hazy (CLEAR) A 09/02/21 14:00 Urine pH 9 (5-7) H 09/02/21 14:00 Ur Specific [place] 1.015 (1.005-1.030) 09/02/21 14:00 Urine Protein 2+ (Negative) H 09/02/21 14:00 Urine Glucose (UA) 2+ (Normal) H 09/02/21 14:00 Urine Ketones Negative (Negative) 09/02/21 14:00 Urine Blood Neg (Negative) 09/02/21 14:00 Urine Nitrate Negative (Negative) 09/02/21 14:00 Urine Bilirubin Neg (Negative) 09/02/21 14:00 Prot Sulfosalicylic Acd Positive (Negative) 09/02/21 14:00 Urine Urobilinogen Neg mg/dL (Negative) 09/02/21 14:00 Ur Leukocyte Esterase Negative (Negative) 09/02/21 14:00 Urine RBC Rare /hpf (0-2) 09/02/21 14:00 Urine WBC 15-25 /hpf (0-5) H 09/02/21 14:00 Ur Squamous Epith Cells 15-25 /hpf (0-5) H 09/02/21 14:00 Amorphous Sediment Not Reportable 09/02/21 14:00 Urine Bacteria 1+ /hpf (NONE) H 09/02/21 14:00 Hep Bs Antigen Non-reactive (Nonreactive) 09/02/21 18:36 Hep Bs Antibody 20.9 (11.5-1000) 09/02/21 18:36 Hepatitis C Antibody Non-reactive (Nonreactive) 09/02/21 18:36 Vitals Last Vital Signs Temp 98.4 F 09/05/21 07:53 Pulse 60 09/05/21 07:53 Resp 13 09/05/21 07:53 BP 163/65 09/05/21 07:53 Pulse Ox 97 09/05/21 07:53 Discharge Plan Discharge Patient Disposition: Home Condition: Stable Prescriptions: Continued nitroglycerin 0.4 mg tablet, sublingual 0.4 mg SUBLINGUAL Q5M PRN (Reason: Chest Pain) Qty: 25 6RF furosemide 40 mg tablet 40 mg PO QAM Qty: 30 2RF escitalopram oxalate 20 mg tablet 20 mg PO DAILY 0RF amlodipine 10 mg tablet 10 mg PO DAILY 30 Days Qty: 30 2RF clonidine HCl 0.1 mg tablet 0.1 mg PO BID Qty: 60 5RF pantoprazole 40 mg tablet,delayed release (DR/EC) 40 mg PO DAILY@08 Qty: 90 3RF atorvastatin 40 mg tablet 40 mg PO DAILY@20 Qty: 90 3RF (DME) pen needle, diabetic [ReliOn Pen Pedro] 32 gauge x 5/32 needle See Rx Instructions .ROUTE .MEDSUPPLY Qty: 100 6RF Rx Instructions: use for insulin injections (DME) PROSTHETIC SUPPLIES See Rx Instructions .Route .MEDSUPPLY Qty: 1 0RF Rx Instructions: As directed aspirin 81 mg Tablet,Chewable 81 mg PO DAILY@08 0RF cholecalciferol (vitamin D3) [Vitamin D3] 25 mcg (1,000 unit) Tablet 25 mcg PO DAILY@08 0RF omega 2-jax-bdi-fish oil [Fish Oil] 300-1,000 mg Capsule,Delayed Release(Dr/Ec) 1 cap PO BID@08,20 0RF ondansetron HCl 8 mg tablet 8 mg PO Q8H PRN (Reason: Nausea And Vomiting) 0RF promethazine 12.5 mg tablet 12.5 - 25 mg PO Q6H PRN (Reason: Nausea) 0RF clonazepam 0.25 mg tablet,disintegrating 0.25 mg PO BID PRN (Reason: Anxiety) 0RF Dialyvite 100-1 mg tablet 1 tab PO DAILY 0RF Euthyrox 150 mcg tablet 150 mcg PO QAM 0RF Changed Lantus Solostar U-100 Insulin 100 unit/mL (3 mL) insulin pen 5 unit SUBCUT BID@08,20 Qty: 15 12RF Discharge Orders: Discharge Order (Routine); Ordered 09/05/21 Ordered By: Maikol Lemos Referrals: Jacob Sharp DO [Primary Care Provider] - Discharge Diet: Cardiac Discharge Activity: Resume usual activity Patient Instructions: Opioid Safety Activity Restrictions/Additional Instructions: -Please follow-up with primary care provider in 1 week -Use muscle spasm sparingly for back pain Discharge Attestations Time Spent in Discharge Care*: less than 30 min Status at Discharge: Cognitive status at discharge: cognitively intact , Behavioral status at discharge: cooperative , Quality Metrics Clinical Quality Measures [ No reported AMI, CVA or VTE this stay] Coding Level of Care Code Acute Chg FW DC note Diagnoses ESRD (end stage renal disease) on dialysis N18.6; Z99.2
[2021-09-05 13:00] LABS: Glucose Point of Care 116 mg/dL (70-110)
--- NOTE | 2021-09-05 13:12 | PC.NURSE ---
still having her hemodialysis
[2021-09-05] MEDS: paricalcitol 2 mcg/mL SDV 1 mL IV (16:30)
[2021-09-05 16:35] LABS: Glucose Point of Care 120 mg/dL (70-110)
--- NOTE | 2021-09-05 17:51 | PC.NURSE ---
home o2 eval in room to provide pt with her portable and home oxygen.
--- NOTE | 2021-09-05 17:52 | PC.NURSE ---
Discharge Note Patient discharged to home via dgtrs vehicle accompanied by daughter. 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 Mobile pharmacy medications and/or prescriptions provided. Belongings/home medications returned.
== END 2021-09-05 17:51 | disposition home or self-care (01) | DRG 291 ==
LOC: ER 13:35 → CSU 15:30 → ER IP 09-03 05:25
PROVIDERS: Internal Medicine Nephrology; Physician Assistant; Admitting Provider Hospitalist; Emergency Provider Family Medicine; PCP Family Medicine; Visit Provider Family Medicine
DX: I13.2 Hypertensive heart and chronic kidney disease with heart failure and with stage 5 chronic kidney disease, or end stage renal disease (principal); I50.33 Acute on chronic diastolic (congestive) heart failure; N18.6 End stage renal disease; N25.81 Secondary hyperparathyroidism of renal origin; E11.22 Type 2 diabetes mellitus with diabetic chronic kidney disease; Z99.2 Dependence on renal dialysis; E03.9 Hypothyroidism, unspecified; I25.10 Atherosclerotic heart disease of native coronary artery without angina pectoris; Z95.5 Presence of coronary angioplasty implant and graft; Z89.511 Acquired absence of right leg below knee; E78.5 Hyperlipidemia, unspecified; G47.33 Obstructive sleep apnea (adult) (pediatric); D63.1 Anemia in chronic kidney disease; E11.51 Type 2 diabetes mellitus with diabetic peripheral angiopathy without gangrene; Z79.82 Long term (current) use of aspirin; M62.830 Muscle spasm of back; Z99.89 Dependence on other enabling machines and devices; K21.9 Gastro-esophageal reflux disease without esophagitis; F41.1 Generalized anxiety disorder
CPT/HCPCS: 32555; 36415; 36416; 36600; 71045; 71275; 72040; 72070; 76604; 80051; 80053; 81001; 82310; 82330; 82728; 82805; 82962; 83540; 83550; 83690; 83735; 83880; 83970; 84100; 84484; 84550; 85025; 85378; 85610; 86706; 86803; 87040; 87340; 93005; 93308; 94660; 96372; 96374; 96375; 99285; G0378; J0360; J1644; J1815 ×2; J1940; J2270; J2405; J2501; Q3014; Q9967

== ENCOUNTER 2021-09-21 08:04 | Emergency (ER) | payer MEDICARE, MEDICAID, SELFPAY ==
[2021-09-21] VITALS (11 sets, daily range): BP systolic 143–207; BP diastolic 73–97; PULSE 71–96; RESP 12–22; TEMP 36.9; O2SAT 90–99; BMI 31.6
--- NOTE | 2021-09-21 08:20 | ECG_ITS ---
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 Measurements Intervals [place] Rate: 77 P: ME: QRS: -64 QRSD: 85 T: 62 QT: 386 QTc: 438 Interpretive Statements SINUS RHYTHM LEFT AXIS DEVIATION [QRS AXIS < -30] POSSIBLE ANTERIOR MYOCARDIAL INFARCTION , PROBABLY OLD Compared to ECG 09/02/2021 15:42:14 Supraventricular rhythm now present Sinus rhythm no longer present ST (T wave) deviation no longer present Myocardial infarct finding still present Electronically Signed On 09-21-2021 16:10:36 CDT by Soraya Ignacio M.D. [id number] f
--- NOTE | 2021-09-21 08:20 | XRR_ITS ---
PROCEDURE INFORMATION: Exam: XR Chest Exam date and time: 09/21/2021 8:49 AM Age: 56 years old Clinical indication: Pain; Chest pressure; Additional info: Chest pain TECHNIQUE: Imaging protocol: XR of the chest. Views: 1 view. Total images: 1 COMPARISON: CR XR chest 1V portable [id number] 09/04/2021 2:20 PM FINDINGS: Tubes, catheters and devices: Hemodialysis catheter again noted and unchanged in position. Lungs: Unremarkable. No consolidation. Pleural spaces: Unremarkable. No pleural effusion. No pneumothorax. Heart/Mediastinum: Heart size is stable when compared to the prior exam. Vasculature: Atherosclerosis is evident. Bones/joints: Osseous structures are unchanged from the prior exam. XR/XR chest 1V portable [id number] IMPRESSION: No acute cardiopulmonary process.
--- NOTE | 2021-09-21 08:24 | ED_ITS ---
HPI - Chest Pain General: Chief Complaint: Chest Pain Stated Complaint: chest pain Time Seen by Provider: 09/21/21 08:14 Source: patient Mode of arrival: ambulatory Limitations: no limitations History of Present Illness: This patient presents to our emergency department because of chest pains. She states that she awoke with chest pain she is not clear whether they woke her or she woke up and noted she had pain. She states that she has taken 2 nitroglycerin at home without any relief or any significant relief of her chest pain. She states the pain is central in nature it feels pressure like and does not radiate. There is no associated shortness of breath or nausea. No cough or recent illness. No injury. She has a history of coronary artery disease as well as chronic kidney disease on dialysis. She has had 2 stents placed previously. She has not taken aspirin today nor is she on any other long-term anticoagulants. MD complaint: chest heaviness Pertinent past history: coronary artery disease Timing of current episode: constant Onset: during rest and awoke with symptoms Pain location: substernal Pain radiation: none Quality: heaviness Relieving factors: nitroglycerin (Partially) Exacerbating factors: nothing Associated symptoms: Reports no associated symptoms; Deny abdominal pain, fever(s), nausea, syncope or vomiting Treatment prior to arrival: nitroglycerin Risk Factors: Coronary artery disease risk factors: diabetes and hypertension Review of Systems Const: Denies: fever(s), chills or body aches Eyes: Denies: change in vision ENMT: Denies: throat pain or odynophagia Card: Reports: chest pain; Denies: lightheadedness, syncope or pre-syncope Resp: Denies: productive cough, non-productive cough, wheezing or stridor GI: Denies: abdominal pain, nausea or vomiting : Denies: flank pain, difficulty voiding or dysuria Musc: Denies: neck pain, back pain, extremity pain or extremity swelling Skin/Breast: Denies: rash, pruritus or erythema Neuro: Denies: headache(s), numbness in extremities, weakness in extremities or sensory changes Refugio/Lymph: Denies: easy bruising or easy bleeding PFS ED PFSH: Medical History Adjustment disorder with mixed disturbance of emotions and conduct Anxiety BPPV (benign paroxysmal positional vertigo) CAD (coronary artery disease) Carotid stenosis 04/2020: Right < 50%, Left near 70% Chronic diastolic CHF (congestive heart failure) 12/2020 EF 55%, grade II/IV diastolic dysfunction Chronic left sacroiliac joint pain Claustrophobia Diabetes mellitus Diverticulitis Elevated troponin End stage renal disease ESBL (extended spectrum beta-lactamase) producing bacteria infection DAILY (generalized anxiety disorder) Gastroparesis GERD (gastroesophageal reflux disease) Gram-negative bacteremia Hemodialysis catheter dysfunction HTN (hypertension) Hyperlipidemia Hypothyroidism Major depression, recurrent DOROTEO on CPAP PAD (peripheral artery disease) Partial nontraumatic amputation of left foot (~06/2019) Peripheral vascular disease Peritonitis associated with peritoneal dialysis Phantom pain Pneumonia due to COVID-19 virus (~12/2020) Suicidal ideation TIA (transient ischemic attack) Vitamin D deficiency Surgical History AV (arteriovenous fistula) (~10/2020) H/O hysterectomy with oophorectomy History of appendectomy History of cataract surgery History of heart artery stent PCI to LAD, done in [place], [place] 10/2018 ENRIQUE to mid LAD at [facility] 04/2020 History of hysterectomy History of left heart catheterization 04/2020 Findings: 1. There is severe coronary artery disease. 2. FFR of mid LAD was 0.76. 3. Severe OM 2 stenosis. However this is a small sized distal vessel. 4. Mid Left Anterior Descending Coronary Artery was treated with Balloon and Drug Eluting Stent History of right below knee amputation Peritoneal dialysis catheter in place Removed due to recurrent peritonitis S/P cholecystectomy S/P PICC central line placement (~2019) Status post amputation of toe Family History Denies family history of CAD (coronary artery disease) Clotting disorder Dementia Bleeding disorder Social History Smoking and tobacco status: never smoked Alcohol intake: never Household members: spouse and family History of recent travel: No Physical Exam 2 Narrative: EXAM NARRATIVE: The patient appears to be calm she has spontaneous eye opening and intermittently will engage examiner but does answer questions in a goal-directed fashion. Const: COMMON NORMALS: no acute distress, patient oriented x3 and alert GENERAL APPEARANCE: cooperative, comfortable and anxious HENMT: COMMON NORMALS: normocephalic and moist oral mucous membranes HEAD & SCALP: normocephalic FACE & SINUS: normal facial exam Eye: COMMON NORMALS: Equal, round and reactive pupils present, EOMs intact bilaterally and conjunctivae normal CONJUNCTIVA: Yes conjunctivae normal PUPIL: Yes Equal, round and reactive pupils present Neck/C-Spine: COMMON NORMALS: full ROM, no JVD and No carotid bruits Lymph: LYMPHATIC: no lymphadenopathy noted Chest: COMMONS NORMALS: normal inspection of the chest and normal palpation of entire chest wall Resp: COMMON NORMALS: normal respiratory effort, No retractions, No use of accessory muscles and clear to auscultation bilaterally AUSCULTATION: clear to auscultation bilaterally Cardio: COMMON NORMALS: no JVD, regular rate, regular rhythm and No murmurs present (Cardio) RATE: regular rate RHYTHM: regular rhythm GI: COMMON NORMALS: Soft to palpation and non-tender PALPATION: Yes Soft to palpation : COMMON NORMALS: Yes no CVA tenderness BLADDER/KIDNEY EXAM: Yes no CVA tenderness Back/Pelvis: COMMON NORMALS: no CVA tenderness, thoracic and lumbar spine normal to inspection and no thoracic nor lumbar tenderness Extremity: COMMON NORMALS: capillary refill normal NARRATIVE EXTREMITY EXAM: External examination reveals no calf tenderness in the left leg. She has a below the knee amputation on her right leg. No lower extremity tenderness noted. Neuro: COMMON NORMALS: patient oriented x3, moves all extremities and no focal motor deficits SENSORIUM/ORIENTATION: Yes alert Psych: COMMON NORMALS: mental status grossly normal Skin: COMMON NORMALS: no rashes or lesions noted, turgor normal and no jaundice GENERAL SKIN EXAM: no rashes or lesions noted and turgor normal Course Reevaluation(s): Reevaluation #1: Patient has been comfortably resting. Her blood pressure and vital signs are otherwise much improved. She denies any ongoing chest pain at this time. Her clinical examination does not reveal any new or focal findings. She remains alert and again vital signs are very reassuring. We reviewed current laboratories and the reassuring nature of her following troponin and no other parameters that suggest ongoing ACS or other concerns. Time: 12:06 Vital Signs: Vital signs: Vital Signs Temperature 98.4 F 09/21/21 08:07 Pulse Rate 74 09/21/21 10:31 Respiratory Rate 12 09/21/21 10:31 Blood Pressure 182/91 09/21/21 10:31 Pulse Oximetry 97 09/21/21 10:31 MDM - Chest Pain Medical Decision Making Patient with a known history of coronary disease as well as chronic kidney disease on dialysis presented to the emergency department with blood pressure elevations and chest discomfort. She is subsequently improved with normalizing of blood pressure and resolution of chest pain. Her troponins have fallen since evaluation in the emergency department. Her EKGs are unchanged without any acute changes suggestive of STEMI and her picture does not suggest ACS. She has an elevation in her BNP however she has chronic kidney disease and is on her weekend between dialysis. She does not display any findings clinically of fluid overload. Review of her chart reveals similar presentations with labile hypertension associated with chest pain. She is now stable and I have discussed options to include continued observation in hospital versus observation at home. After some consideration and discussion of risks and benefits she has decided o n the latter. We discussed return precautions. I encouraged her to ensure that she gets dialyzed tomorrow. She acknowledged her discussion. Stable for discharge at this time. Medical Records I reviewed the patient's medical records. Lab Data : 09/21/21 08:25 09/21/21 08:25 Radiology Impressions Chest X-Ray 09/21/21 08:20 IMPRESSION: No acute cardiopulmonary process. Laboratory Results WBC 5.1 10^3/uL (4.0-10.0) 09/21/21 08:25 RBC 4.14 10^6/uL (4.1-5.3) 09/21/21 08:25 Hgb 13.3 g/dL (11.5-15.3) 09/21/21 08:25 Hct 40.9 % (37.0-47.0) 09/21/21 08:25 MCV 98.8 fl (81-99) 09/21/21 08:25 MCH 32.1 pg (28.0-34.0) 09/21/21 08:25 MCHC 32.5 g/dL (30.0-36.0) 09/21/21 08:25 RDW 13.9 % (12.1-15.1) 09/21/21 08:25 Plt Count 148 10^3/cmm (130-400) 09/21/21 08:25 MPV 10.8 fL (7.4-10.4) H 09/21/21 08:25 Neut % (Auto) 72.7 % 09/21/21 08:25 Lymph % (Auto) 12.5 % 09/21/21 08:25 Izard % (Auto) 7.1 % 09/21/21 08:25 Eos % (Auto) 6.7 % 09/21/21 08:25 Baso % (Auto) 0.8 % 09/21/21 08:25 Neut # (Auto) 3.67 10^3/uL (1.8-7.7) 09/21/21 08:25 Lymph # (Auto) 0.6 10^3/uL (0.8-4.8) L 09/21/21 08:25 Izard # (Auto) 0.4 10^3/uL (0.2-0.9) 09/21/21 08:25 Eos # (Auto) 0.3 10^3/uL (0.0-0.8) 09/21/21 08:25 Baso # (Auto) 0.0 10^3/uL (0.0-0.1) 09/21/21 08:25 Nucleated RBC % (auto) 0 % 09/21/21 08:25 Nucleated RBCs # 0.0 /100WBC 09/21/21 08:25 Sodium 137 mmol/L (136-145) 09/21/21 08:25 Potassium 4.2 mmol/L (3.5-5.1) 09/21/21 08:25 Chloride 98 mmol/L (98-107) 09/21/21 08:25 Carbon Dioxide 23 mmol/L (22-29) 09/21/21 08:25 Anion Gap 20.2 (5-19) H 09/21/21 08:25 BUN 28 mg/dL (6-20) H 09/21/21 08:25 Creatinine 5.6 mg/dL (0.5-0.9) H* 09/21/21 08:25 GFR Calculation 7.8 mL/min (90-130) L 09/21/21 08:25 Glucose 207 mg/dL (65-115) H 09/21/21 08:25 POC Glucose 198 mg/dL (70-110) H 09/21/21 08:33 Calculated Osmolality 296 mOsm/kg (285-295) H 09/21/21 08:25 Calcium 9.5 mg/dL (8.5-10.5) 09/21/21 08:25 Total Bilirubin 0.8 mg/dL (0.15-1.2) 09/21/21 08:25 AST 22 U/L (0-32) 09/21/21 08:25 ALT 13 U/L (0-33) 09/21/21 08:25 Alkaline Phosphatase 156 IU/L (35-105) H 09/21/21 08:25 Troponin T Baseline 97 ng/L (0-10) H 09/21/21 08:25 Troponin T 120 Minute 76.99 ng/L (0-10) H 09/21/21 11:24 Delta Troponin T -20.01 ABS# (0-10) L 09/21/21 11:24 NT-Pro-B Natriuret Pep 14234 pg/mL (0-125) H 09/21/21 08:25 Total Protein 6.9 g/dL (6.6-8.7) 09/21/21 08:25 Albumin 3.9 g/dL (3.5-5.2) 09/21/21 08:25 Globulin 3.0 g/dL (1.3-4.6) 09/21/21 08:25 EKG Data EKG 1: EKG interpretation time: 08:21 Interpretation: She has a ventricular rate of [address]-T wave changes noted. She does have loss of anterior forces across the precordial leads suggestive of possible anterior myocardial infarction likely remote. Essentially unchanged from prior tracings within the system. EKG 2: EKG interpretation time: 10:30 Interpretation: Second EKG obtained reveals a ventricular rate of 74 bpm. She has normal IL interval QRS duration and QTc intervals. She has no acute ST-T wave changes noted. EKG is essentially unchanged from the prior EKG on this visit as well as prior EKGs available within the system. Discharge Plan Discharge Condition: Stable Prescriptions: No Action nitroglycerin 0.4 mg tablet, sublingual 0.4 mg SUBLINGUAL Q5M PRN (Reason: Chest Pain) Qty: 25 6RF furosemide 40 mg tablet 40 mg PO QAM Qty: 30 2RF escitalopram oxalate 20 mg tablet 20 mg PO DAILY 0RF amlodipine 10 mg tablet 10 mg PO DAILY 30 Days Qty: 30 2RF azithromycin [Zithromax Z-Hudson] 250 mg tablet See Rx Instructions PO .COMPLEX Qty: 6 0RF Rx Instructions: take 500 mg today (day 1), then 250 mg for 4 days (days 2-5) PO amoxicillin-pot clavulanate 875-125 mg tablet 1 tab PO Q12H Qty: 20 0RF clonidine HCl 0.1 mg tablet 0.1 mg PO BID Qty: 60 5RF pantoprazole 40 mg tablet,delayed release (DR/EC) 40 mg PO DAILY@08 Qty: 90 3RF atorvastatin 40 mg tablet 40 mg PO DAILY@20 Qty: 90 3RF (DME) pen needle, diabetic [ReliOn Pen [place]] 32 gauge x 5/32 needle See Rx Instructions .ROUTE .MEDSUPPLY Qty: 100 6RF Rx Instructions: use for insulin injections (DME) PROSTHETIC SUPPLIES See Rx Instructions .Route .MEDSUPPLY Qty: 1 0RF Rx Instructions: As directed aspirin 81 mg Tablet,Chewable 81 mg PO DAILY@08 0RF cholecalciferol (vitamin D3) [Vitamin D3] 25 mcg (1,000 unit) Tablet 25 mcg PO DAILY@08 0RF omega 9-ylm-tqp-fish oil [Fish Oil] 300-1,000 mg Capsule,Delayed Release(Dr/Ec) 1 cap PO BID@08,20 0RF ondansetron HCl 8 mg tablet 8 mg PO Q8H PRN (Reason: Nausea And Vomiting) 0RF promethazine 12.5 mg tablet 12.5 - 25 mg PO Q6H PRN (Reason: Nausea) 0RF clonazepam 0.25 mg tablet,disintegrating 0.25 mg PO BID PRN (Reason: Anxiety) 0RF Dialyvite 100-1 mg tablet 1 tab PO DAILY 0RF Euthyrox 150 mcg tablet 150 mcg PO QAM 0RF Lantus Solostar U-100 Insulin 100 unit/mL (3 mL) insulin pen 5 unit SUBCUT BID@08,20 Qty: 15 12RF Referrals: Jacob Sharp DO [Primary Care Provider] - Coding Level of Care Code ED [employer] 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
[2021-09-21] MEDS: aspirin 81 mg Chew Tablet 324 MG PO (08:31)
[2021-09-21] MEDS: nitroglycerin 0.4 mg sublingual Tablet SUBLINGUAL ×3 (08:33→08:54)
[2021-09-21 08:37] LABS: Glucose Point of Care 198 mg/dL (70-110)
[2021-09-21 08:40] LABS: Basophils % 0.8 %; Eosinophils # 0.3 10^3/uL (0.0-0.8); Eosinophils % 6.7 %; Hematocrit 40.9 % (37.0-47.0); Hemoglobin 13.3 g/dL (11.5-15.3); Lymphocytes # 0.6 10^3/uL (0.8-4.8); Lymphocytes % 12.5 %; Mean Corpuscular HGB Conc 32.5 g/dL (30.0-36.0); Mean Corpuscular Hemoglobin 32.1 pg (28.0-34.0); Mean Corpuscular Volume 98.8 fl (81-99); Mean Platelet Volume 10.8 fL (7.4-10.4); Monocytes # 0.4 10^3/uL (0.2-0.9); Monocytes % 7.1 %; Neutrophils # 3.67 10^3/uL (1.8-7.7); Neutrophils % 72.7 %; Nucleated Red Blood Cells % 0 %; Platelet Count 148 10^3/cmm (130-400); Red Blood Count 4.14 10^6/uL (4.1-5.3); Red Cell Distribution Width 13.9 % (12.1-15.1); White Blood Count 5.1 10^3/uL (4.0-10.0)
--- NOTE | 2021-09-21 08:45 | PC.NURSE ---
PT given one 0.4mg nitro tablet at 0836 with BP of 192/84 chest pain 03/16. new BP of 143/73 @0841. Pain 01/14. PT gievn second nitro at 0844. 0849 PT states pain is 12/14. New BP 156/76
--- NOTE | 2021-09-21 08:55 | PC.NURSE ---
third nitro tablet given 0856. 0901 BP 149/73 pain 7/10
[2021-09-21 09:02] LABS: Troponin(5th) Baseline 97 ng/L (0-10)
[2021-09-21] MEDS: morphine 4 mg/mL SDV 1 mL IVP (09:07)
[2021-09-21 09:11] LABS: Alanine Aminotransferase 13 U/L (0-33); Albumin Level 3.9 g/dL (3.5-5.2); Alkaline Phosphatase 156 IU/L (35-105); Anion Gap 20.2 (5-19); Aspartate Amino Transferase 22 U/L (0-32); Blood Urea Nitrogen 28 mg/dL (6-20); Calcium 9.5 mg/dL (8.5-10.5); Carbon Dioxide 23 mmol/L (22-29); Chloride 98 mmol/L (98-107); Glomerular Filtration Rate 7.8 mL/min (90-130); Glucose 207 mg/dL (65-115); NT Pro B Type Natriuretic Pept 13959 pg/mL (0-125); Osmolality Calculated 296 mOsm/kg (285-295); Potassium 4.2 mmol/L (3.5-5.1); Sodium 137 mmol/L (136-145); Total Bilirubin 0.8 mg/dL (0.15-1.2); Total Protein 6.9 g/dL (6.6-8.7)
--- NOTE | 2021-09-21 09:23 | PC.NURSE ---
critical lab value creatinine 5.6 physician notified. No new orders at this time
--- NOTE | 2021-09-21 10:20 | ECG_ITS ---
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 Measurements Intervals Elizabeth Rate: 74 P: -47 WI: 188 QRS: -60 QRSD: 86 T: 55 QT: 403 QTc: 449 Interpretive Statements SINUS RHYTHM LEFT AXIS DEVIATION [QRS AXIS < -30] POSSIBLE ANTERIOR MYOCARDIAL INFARCTION , OF INDETERMINATE AGE [30 ms Q WAVE IN V3/V4, OR R < 0.2 mV IN V4] Compared to ECG 09/02/2021 15:42:14 ST (T wave) deviation no longer present Myocardial infarct finding still present Electronically Signed On 09-21-2021 16:18:42 CDT by Soraya Ignacio M.D. [email or web address]
[2021-09-21 11:49] LABS: Troponin 5 2HR 76.99 ng/L (0-10); Troponin 5 2HR Delta -20.01 ABS# (0-10)
== END 2021-09-21 12:55 | disposition home or self-care (01) ==
PROVIDERS: Emergency Provider Emergency Medicine; PCP Family Medicine
DX: R07.9 Chest pain, unspecified (principal); I25.10 Atherosclerotic heart disease of native coronary artery without angina pectoris; Z95.5 Presence of coronary angioplasty implant and graft; E11.22 Type 2 diabetes mellitus with diabetic chronic kidney disease; I13.2 Hypertensive heart and chronic kidney disease with heart failure and with stage 5 chronic kidney disease, or end stage renal disease; N18.6 End stage renal disease; I50.32 Chronic diastolic (congestive) heart failure; Z99.2 Dependence on renal dialysis; Z79.82 Long term (current) use of aspirin; Z79.4 Long term (current) use of insulin
CPT/HCPCS: 36416; 71045; 80053; 82962; 83880; 84484; 85025; 93005; 96374; 99284; J2270

== ENCOUNTER 2021-09-22 15:01 | Observation (INO) | payer MEDICARE, MEDICAID, SELFPAY ==
[2021-09-22] VITALS (13 sets, daily range): BP systolic 143–179; BP diastolic 66–98; PULSE 65–81; RESP 12–20; TEMP 36.3–36.9; O2SAT 89–97; BMI 31.6
--- NOTE | 2021-09-22 15:14 | W.ED.CHESTPA ---
HPI - Chest Pain General: Chief Complaint: Chest Pain Stated Complaint: CHEST PAIN Time Seen by Provider: 09/22/21 15:13 Source: patient Mode of arrival: ambulatory Limitations: no limitations History of Present Illness: 56-year-old female presents emergency room with chest pain. She was seen yesterday for chest pain and then returns again today yesterday she woke up with chest pain today she was supposed to rest this of the way to dialysis began having chest discomfort states mild shortness of breath with that she was given aspirin and sublingual nitro by EMS after 2 sublingual nitro her chest pain resolved. She has a known history of coronary artery disease and her last angiogram was in April 2020 at which time she was stented she had multivessel disease. Prior to yesterday today she had not been having a significant amount of chest discomfort. On arrival here she rates her pain a 1 out of 10, after the nitro. MD complaint: chest pain Pertinent past history: coronary artery disease and other (Diabetes mellitus end-stage renal disease) Onset (ago): minute(s) Timing of current episode: episodic Prior episodes: Yes Onset: during rest Pain location: substernal and left chest Pain radiation: left arm Severity: moderate Quality: aching and heaviness Relieving factors: nitroglycerin Exacerbating factors: nothing Associated symptoms: Reports dyspnea; Deny abdominal pain, diaphoresis, fever(s), leg edema, nausea, palpitations, sense of impending doom, syncope or vomiting Treatment prior to arrival: aspirin and nitroglycerin Risk Factors: Coronary artery disease risk factors: diabetes Review of Systems Const: Denies: fever(s), chills or diaphoresis ENMT: Denies: throat pain, ear or mastoid pain, nasal discharge or nasal congestion Card: Reports: chest pain and edema; Denies: palpitations or syncope Resp: Reports: dyspnea GI: Denies: abdominal pain, nausea or vomiting : Denies: flank pain, difficulty voiding, dysuria, urinary frequency or urinary urgency Skin/Breast: Denies: rash or pruritus PFS ED PFSH: Medical History Adjustment disorder with mixed disturbance of emotions and conduct Anxiety BPPV (benign paroxysmal positional vertigo) CAD (coronary artery disease) Carotid stenosis 04/2020: Right < 50%, Left near 70% Chronic diastolic CHF (congestive heart failure) 12/2020 EF 55%, grade II/IV diastolic dysfunction Chronic left sacroiliac joint pain Claustrophobia Diabetes mellitus Diverticulitis Elevated troponin End stage renal disease ESBL (extended spectrum beta-lactamase) producing bacteria infection DAILY (generalized anxiety disorder) Gastroparesis GERD (gastroesophageal reflux disease) Gram-negative bacteremia Hemodialysis catheter dysfunction HTN (hypertension) Hyperlipidemia Hypothyroidism Major depression, recurrent DOROTEO on CPAP PAD (peripheral artery disease) Partial nontraumatic amputation of left foot (~06/2019) Peripheral vascular disease Peritonitis associated with peritoneal dialysis Phantom pain Pneumonia due to COVID-19 virus (~12/2020) Suicidal ideation TIA (transient ischemic attack) Vitamin D deficiency Surgical History AV (arteriovenous fistula) (~10/2020) H/O hysterectomy with oophorectomy History of appendectomy History of cataract surgery History of heart artery stent PCI to LAD, done in [place], [place] 10/2018 ENRIQUE to mid LAD at [facility] 04/2020 History of hysterectomy History of left heart catheterization 04/2020 Findings: 1. There is severe coronary artery disease. 2. FFR of mid LAD was 0.76. 3. Severe OM 2 stenosis. However this is a small sized distal vessel. 4. Mid Left Anterior Descending Coronary Artery was treated with Balloon and Drug Eluting Stent History of right below knee amputation Peritoneal dialysis catheter in place Removed due to recurrent peritonitis S/P cholecystectomy S/P PICC central line placement (~2019) Status post amputation of toe Family History Denies family history of CAD (coronary artery disease) Clotting disorder Dementia Bleeding disorder Social History Smoking and tobacco status: never smoked Alcohol intake: never Household members: spouse and family History of recent travel: No Physical Exam Const: GENERAL APPEARANCE: cooperative and comfortable ORIENTATION/CONSCIOUSNESS: Yes awake, Yes oriented to person, Yes oriented to place and Yes oriented to time HENMT: COMMON NORMALS: normocephalic, atraumatic and hearing grossly normal bilaterally HEAD & SCALP: normocephalic and atraumatic Neck/C-Spine: COMMON NORMALS: no JVD Resp: COMMON NORMALS: normal respiratory effort, No retractions, No use of accessory muscles and clear to auscultation bilaterally AUSCULTATION: clear to auscultation bilaterally and diminished lung sounds Cardio: COMMON NORMALS: no JVD, regular rate, regular rhythm and No murmurs present (Cardio) RATE: regular rate RHYTHM: regular rhythm GI: COMMON NORMALS: Soft to palpation and No hepatosplenomegaly present AUSCULTATION: Yes normoactive bowel sounds PALPATION: Yes Soft to palpation, No Tenderness to palpation present (GI), No Guarding due to palpation present (GI) and Yes No hepatosplenomegaly present Extremity: COMMON NORMALS: normal to inspection, capillary refill normal, no clubbing, cyanosis or edema, no calf tenderness and no pedal edema Neuro: SENSORIUM/ORIENTATION: Yes oriented to person, Yes oriented to place and Yes oriented to time Skin: COMMON NORMALS: no rashes or lesions noted GENERAL SKIN EXAM: no rashes or lesions noted Course Vital Signs: Vital signs: Vital Signs Temperature 98.4 F 09/22/21 15:36 Pulse Rate 74 09/22/21 15:36 Respiratory Rate 13 09/22/21 15:36 Blood Pressure 169/91 09/22/21 15:36 Pulse Oximetry 94 09/22/21 15:36 MDM - Chest Pain Medical Decision Making Angina symptoms in a patient with known severe coronary artery disease. First troponin is actually below her baseline. Given the fact that her chest pain was responsive to nitro is difficult to see a way to treat this or even evaluate further as an outpatient she really would not be a good candidate for cardiac stress test. Reviewed previous angiogram from April 2020 discussed with hospitalist will admit consult nephrology. Hospitalist will consult cardiology. Discussed with patient. Medical Records I reviewed the patient's medical records. Lab Data I reviewed the patient's lab results. : 09/22/21 15:30 09/22/21 15:30 Radiology Impressions Chest X-Ray 09/22/21 15:18 IMPRESSION: 1. Infiltrate and atelectasis in the left lower lobe. Pneumonia is not excluded. 2. Mild cardiac enlargement. Laboratory Results WBC 7.0 10^3/uL (4.0-10.0) 09/22/21 15:30 RBC 4.01 10^6/uL (4.1-5.3) L 09/22/21 15:30 Hgb 12.7 g/dL (11.5-15.3) 09/22/21 15: Hct 39.9 % (37.0-47.0) 09/22/21 15: MCV 99.5 fl (81-99) H 09/22/21 15:30 MCH 31.7 pg (28.0-34.0) 09/22/21 15: MCHC 31.8 g/dL (30.0-36.0) 09/22/21: RDW 14.0 % (12.1-15.1) 09/22/21 15: Plt Count 135 10^3/cmm (130-400) 09/22/21: MPV 10.8 fL (7.4-10.4) H 09/22/21 15:30 Neut % (Auto) 84.4 % 09/22/21: Lymph % (Auto) 6.7 % 09/22/21: [place] % (Auto) 4.7 % 09/22/21: Eos % (Auto) 3.6 % 09/22/21: Baso % (Auto) 0.3 % 09/22/21: Neut # (Auto) 5.90 10^3/uL (1.8-7.7) 09/22/21: Lymph # (Auto) 0.5 10^3/uL (0.8-4.8) L 09/22/21 15:30 [place] # (Auto) 0.3 10^3/uL (0.2-0.9) 09/22/21: Eos # (Auto) 0.3 10^3/uL (0.0-0.8) 09/22/21 15: Baso # (Auto) 0.0 10^3/uL (0.0-0.1) 09/22/21: Nucleated RBC % (auto) 0 % 09/22/21: Nucleated RBCs # 0.0 /100WBC 09/22/21 15:30 Sodium 139 mmol/L (136-145) 09/22/21 15: Potassium 4.5 mmol/L (3.5-5.1) 09/22/21:30 Chloride 100 mmol/L (98-107) 09/22/21 15:30 Carbon Dioxide 25 mmol/L (22-29) 09/22/21 15:30 Anion Gap 18.5 (5-19) 09/22/21 15:30 BUN 29 mg/dL (6-20) H 09/22/21 15:30 Creatinine 6.0 mg/dL (0.5-0.9) H* 09/22/21 15:30 GFR Calculation 7.2 mL/min (90-130) L 09/22/21 15:30 Glucose 185 mg/dL (65-115) H 09/22/21 15:30 Calculated Osmolality 299 mOsm/kg (285-295) H 09/22/21 15:30 Calcium 8.0 mg/dL (8.5-10.5) L 09/22/21 15:30 Total Bilirubin 0.6 mg/dL (0.15-1.2) 09/22/21 15:30 AST 19 U/L (0-32) 09/22/21 15:30 ALT 16 U/L (0-33) 09/22/21 15:30 Alkaline Phosphatase 141 IU/L (35-105) H 09/22/21 15:30 Troponin T Baseline 84 ng/L (0-10) H 09/22/21 15:30 Total Protein 6.3 g/dL (6.6-8.7) L 09/22/21 15:30 Albumin 4.0 g/dL (3.5-5.2) 09/22/21 15:30 Globulin 2.3 g/dL (1.3-4.6) 09/22/21 15:30 Discharge Plan Discharge Condition: Stable Prescriptions: No Action nitroglycerin 0.4 mg tablet, sublingual 0.4 mg SUBLINGUAL Q5M PRN (Reason: Chest Pain) Qty: 25 6RF furosemide 40 mg tablet 40 mg PO QAM Qty: 30 2RF escitalopram oxalate 20 mg tablet 20 mg PO DAILY 0RF amlodipine 10 mg tablet 10 mg PO DAILY 30 Days Qty: 30 2RF clonidine HCl 0.1 mg tablet 0.1 mg PO BID Qty: 60 5RF pantoprazole 40 mg tablet,delayed release (DR/EC) 40 mg PO DAILY@08 Qty: 90 3RF atorvastatin 40 mg tablet 40 mg PO DAILY@20 Qty: 90 3RF (DME) pen needle, diabetic [ReliOn Pen [place]] 32 gauge x 5/32 needle See Rx Instructions .ROUTE .MEDSUPPLY Qty: 100 6RF Rx Instructions: use for insulin injections (DME) PROSTHETIC SUPPLIES See Rx Instructions .Route .MEDSUPPLY Qty: 1 0RF Rx Instructions: As directed aspirin 81 mg Tablet,Chewable 81 mg PO DAILY@08 0RF cholecalciferol (vitamin D3) [Vitamin D3] 25 mcg (1,000 unit) Tablet 25 mcg PO DAILY@08 0RF omega 1-men-uyp-fish oil [Fish Oil] 300-1,000 mg Capsule,Delayed Release(Dr/Ec) 1 cap PO BID@08,20 0RF ketorolac 0.5 % drops 1 drp ophthalmic (eye) QID 0RF Glucosamine Chondroitin 550-30-1 mg Capsule 1 cap PO DAILY 0RF ondansetron HCl 8 mg tablet 8 mg PO Q8H PRN (Reason: Nausea And Vomiting) 0RF clonazepam 0.25 mg tablet,disintegrating 0.25 mg PO BID PRN (Reason: Anxiety) 0RF Dialyvite 100-1 mg tablet 1 tab PO DAILY 0RF levothyroxine [Euthyrox] 150 mcg tablet 150 mcg PO QAM 0RF Lantus Solostar U-100 Insulin 100 unit/mL (3 mL) insulin pen 5 unit SUBCUT BID@08,20 Qty: 15 12RF Referrals: Jacob Sharp DO [Primary Care Provider] - Coding Level of Care Code ED Religion Instructor for Chg Fwd Exam Comprehensive
--- NOTE | 2021-09-22 15:18 | XR_ITS ---
WS: [id number] Exam: XR chest 1V portable [id number] Date/Time of Exam: 09/22/2021 3:27 PM Reason For Exam: chest pain Comparison 09/21/2021. Infiltrate and atelectasis in the left lower lobe. Right lung is clear. No pneumothorax. Mild cardiac enlargement unchanged. A double lumen right-sided dialysis catheter ends in the lower one third of t he SVC. Bony structures are intact. The mediastinum is unremarkable for technique. XR/XR chest 1V portable [id number] IMPRESSION: 1. Infiltrate and atelectasis in the left lower lobe. Pneumonia is not excluded . 2. Mild cardiac enlargement.
--- NOTE | 2021-09-22 15:18 | ECG_ITS ---
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 Measurements Intervals [place] Rate: 76 P: -29 MS: 183 QRS: -54 QRSD: 90 T: 50 QT: 402 QTc: 452 Interpretive Statements SINUS RHYTHM LEFT AXIS DEVIATION [QRS AXIS < -30] POSSIBLE ANTERIOR MYOCARDIAL INFARCTION , OF INDETERMINATE AGE [30 ms Q WAVE IN V3/V4, OR R < 0.2 mV IN V4] Compared to ECG 09/21/2021 10:25:17 No significant changes Electronically Signed On 09-23-2021 7:27:12 CDT by Soraya Ignacio M.D. [id number]
[2021-09-22 15:42] LABS: Basophils % 0.3 %; Eosinophils # 0.3 10^3/uL (0.0-0.8); Eosinophils % 3.6 %; Hematocrit 39.9 % (37.0-47.0); Hemoglobin 12.7 g/dL (11.5-15.3); Lymphocytes # 0.5 10^3/uL (0.8-4.8); Lymphocytes % 6.7 %; Mean Corpuscular HGB Conc 31.8 g/dL (30.0-36.0); Mean Corpuscular Hemoglobin 31.7 pg (28.0-34.0); Mean Corpuscular Volume 99.5 fl (81-99); Mean Platelet Volume 10.8 fL (7.4-10.4); Monocytes # 0.3 10^3/uL (0.2-0.9); Monocytes % 4.7 %; Neutrophils % 84.4 %; Nucleated Red Blood Cells % 0 %; Platelet Count 135 10^3/cmm (130-400); Red Blood Count 4.01 10^6/uL (4.1-5.3)
[2021-09-22 16:09] LABS: Alanine Aminotransferase 16 U/L (0-33); Alkaline Phosphatase 141 IU/L (35-105); Anion Gap 18.5 (5-19); Aspartate Amino Transferase 19 U/L (0-32); Blood Urea Nitrogen 29 mg/dL (6-20); Carbon Dioxide 25 mmol/L (22-29); Chloride 100 mmol/L (98-107); Globulin 2.3 g/dL (1.3-4.6); Glomerular Filtration Rate 7.2 mL/min (90-130); Glucose 185 mg/dL (65-115); Osmolality Calculated 299 mOsm/kg (285-295); Potassium 4.5 mmol/L (3.5-5.1); Sodium 139 mmol/L (136-145); Total Bilirubin 0.6 mg/dL (0.15-1.2); Total Protein 6.3 g/dL (6.6-8.7)
[2021-09-22 16:16] LABS: Troponin(5th) Baseline 84 ng/L (0-10)
--- NOTE | 2021-09-22 17:18 | ECG_ITS ---
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 Measurements Intervals [place] Rate: 77 P: -31 PA: 194 QRS: -57 QRSD: 88 T: 63 QT: 414 QTc: 469 Interpretive Statements SINUS RHYTHM LEFT AXIS DEVIATION [QRS AXIS < -30] POSSIBLE ANTERIOR MYOCARDIAL INFARCTION , OF INDETERMINATE AGE Compared to ECG 09/22/2021 15:13:07 No significant changes Electronically Signed On 09-23-2021 7:32:01 CDT by Soraya Ignacio M.D. [id number]
[2021-09-22] MEDS: cloNIDine 0.1 mg Tablet PO (18:07)
[2021-09-22 18:15] LABS: Troponin 5 2HR 91.05 ng/L (0-10)
[2021-09-22 18:16] LABS: Troponin 5 2HR Delta 7.05 ABS# (0-10)
--- NOTE | 2021-09-22 18:40 | P.HP_ITS ---
Providers/Chief Complaint Admitting Physician: Tacos Schuler Primary Care Provider: Jacob Sharp DO Chief Complaint: CHEST PAIN History of Present Illness Rizwana Herzog is a 56 year old female with past medical history of hypertension, diabetes, end-stage renal disease, on dialysis, gastroparesis, AKA, congestive heart failure with normal EF, peripheral arterial disease, coronary artery disease, previous cardiac catheterization in 2019 with placement of drug-eluting stent, Dr. Duarte's pt who is presenting to emergency room with complaints of chest pain which started suddenly this morning. The chest pain is described as dull, moderate intensity. Started suddenly. Located in the left chest. Nonradiating. Not reproducible. Improved with 2 doses of nitroglycerin prior to the presentation to ED. Emergency room the EKG showed chronic anterior ischemic changes. Troponin was moderately elevated. She also has elevated BNP and chest x-ray with possible edema. She was slightly hypoxic, last saturation was 89. She was also noted to have significantly elevated blood pressure. Currently it is 180. Due to the symptoms she was unable to finish her dialysis treatment today. The patient was in the emergency room yesterday with similar chest pain. 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 She was also hospitalized 2 weeks ago with fluid overload and suspected CHF. Echo revealed no significant abnormalities. EF was normal. She reports some shortness of breath, nausea, not feeling well. Denies headac he, neck pain. No fever or chills. No cough. No vomiting or diarrhea. No signs of bleeding. Review of systems otherwise is negative except positive and negative pertinent described above. Medications/Allergies Home Medications Medication Instructions Recorded Confirmed Last Taken Type aspirin 81 mg chewable tablet 81 mg PO DAILY@06/25/19 09/22/21 09/22/21 History omega 1-unr-opk-fish oil 300 1 cap PO BID@01/17/20 09/22/21 09/22/21 History mg-1,000 mg capsule,delayed release (Fish Oil) nitroglycerin 0.4 mg sublingual 0.4 mg SUBLINGUAL Q5M PRN #25 tab 03/26/20 09/22/21 04/18/20 Rx tablet cholecalciferol (vitamin D3) 25 25 mcg PO DAILY@05/14/20 09/22/21 09/22/21 History mcg (1,000 unit) tablet (Vitamin D3) clonidine HCl 0.1 mg tablet 0.1 mg PO BID #60 tab 01/03/21 09/22/21 09/22/21 Rx pantoprazole 40 mg tablet,delayed 40 mg PO DAILY@08 #90 tab 04/02/21 09/22/21 09/22/21 Rx release atorvastatin 40 mg tablet 40 mg PO DAILY@20 #90 tab 04/28/21 09/22/21 09/22/21 Rx pen needle, diabetic 32 gauge x #100 ea 06/17/21 09/22/21 Unknown Rx (ReliOn Pen [place]) amlodipine 10 mg tablet 10 mg PO DAILY 30 Days #30 tab 07/22/21 09/22/2109/22 Rx escitalopram oxalate 20 mg tablet 20 mg PO DAILY 07/22/21 09/22/21 09/22/21 History furosemide 40 mg tablet 40 mg PO QAM #30 tab 08/12/21 09/22/21 09/22/21 Rx PROSTHETIC SUPPLIES #1 ea 08/21/21 09/22/21 Unknown Rx clonazepam 0.25 mg disintegrating 0.25 mg PO BID PRN 09/02/21 09/22/21 09/22/21 History tablet levothyroxine 150 mcg tablet 150 mcg PO QAM 09/02/21 09/22/21 09/22/21 History (Euthyrox) ondansetron HCl 8 mg tablet 8 mg PO Q8H PRN 09/02/21 09/22/21 Unknown History vitamin B complex-vitamin C 100 1 tab PO DAILY 09/02/21 09/22/21 09/22/21 History mg-folic acid 1 mg tablet (Dialyvite) insulin glargine 100 unit/mL (3 5 unit (0.05 mL) SUBCUT BID@08,09/05/21 09/22/21 09/22/21 Rx mL) subcutaneous pen (Lantus #15 ml Solostar U-100 Insulin) glucosamine sulf dipot 1 cap PO DAILY 09/22/21 09/22/21 09/22/21 History chlr,msm,chond 550 mg-C 30 mg-janet 1 mg capsule (Glucosamine Chondroitin) ketorolac 0.5 % eye drops 1 drp OPHTHALMIC (EYE) QID 09/22/21 09/22/21 09/22/21 History Allergies Allergy/AdvReac Type Severity Reaction Status Date / Time metformin [From Glucophage] Allergy Severe Unknown Verified 09/22/21 16:22 venlafaxine [From Effexor] Allergy Severe ADR-Shakine Verified 09/22/21 16:22 ss PFSH Acute PFSH: Medical History Adjustment disorder with mixed disturbance of emotions and conduct Anxiety BPPV (benign paroxysmal positional vertigo) CAD (coronary artery disease) Carotid stenosis 04/2020: Right < 50%, Left near 70% Chronic diastolic CHF (congestive heart failure) 12/2020 EF 55%, grade II/IV diastolic dysfunction Chronic left sacroiliac joint pain Claustrophobia Diabetes mellitus Diverticulitis Elevated troponin End stage renal disease ESBL (extended spectrum beta-lactamase) producing bacteria infection DAILY (generalized anxiety disorder) Gastroparesis GERD (gastroesophageal reflux disease) Gram-negative bacteremia Hemodialysis catheter dysfunction HTN (hypertension) Hyperlipidemia Hypothyroidism Major depression, recurrent DOROTEO on CPAP PAD (peripheral artery disease) Partial nontraumatic amputation of left foot (~06/2019) Peripheral vascular disease Peritonitis associated with peritoneal dialysis Phantom pain Pneumonia due to COVID-19 virus (~12/2020) Suicidal ideation TIA (transient ischemic attack) Vitamin D deficiency Surgical History AV (arteriovenous fistula) (~10/2020) H/O hysterectomy with oophorectomy History of appendectomy History of cataract surgery History of heart artery stent PCI to LAD, done in [place], [place] 10/2018 ENRIQUE to mid LAD at [facility] 04/2020 History of hysterectomy History of left heart catheterization 04/2020 Findings: 1. There is severe coronary artery disease. 2. FFR of mid LAD was 0.76. 3. Severe OM 2 stenosis. However this is a small sized distal vessel. 4. Mid Left Anterior Descending Coronary Artery was treated with Balloon and Drug Eluting Stent History of right below knee amputation Peritoneal dialysis catheter in place Removed due to recurrent peritonitis S/P cholecystectomy S/P PICC central line placement (~2019) Status post amputation of toe Family History Denies family history of CAD (coronary artery disease) Clotting disorder Dementia Bleeding disorder Social History Smoking and tobacco status: never smoked Alcohol intake: never Household members: spouse and family History of recent travel: No Vitals/I&O/Wt Last Vital Signs Temp 98 F 09/22/21 18:14 Pulse 81 09/22/21 18:14 Resp 16 09/22/21 18:14 BP 167/81 09/22/21 18:14 Pulse Ox 95 09/22/21 18:14 Weight last 48 hrs Weight 86.183 kg Physical Exam Narrative: The patient is currently awake alert oriented. No acute distress. Mood and affect are appropriate. Responses are adequate. Skin is warm and dry. Moist mucous membranes. Neck no JVD. Supple. Lungs decreased breath sounds bibasilarly. No respiratory distress currently with supplemental oxygen. No significant wheezes or crackles. Heart S1, S2, regular Abdomen is soft, nontender, bowel sounds are present Extremities AKA. No peripheral cyanosis. No calf tenderness. Eyes. Left side is red. She had recent cataract surgery on that side. Extraocular muscles are intact. No focal deficits. No facial asymmetry. Normal speech. Data : 09/22/21 15:30 09/22/21 15:30 Other Labs: Radiology Impressions Chest X-Ray 09/22/21 15:18 IMPRESSION: 1. Infiltrate and atelectasis in the left lower lobe. Pneumonia is not excluded. 2. Mild cardiac enlargement. Laboratory Results WBC 7.0 10^3/uL (4.0-10.0) 09/22/21 15:30 RBC 4.01 10^6/uL (4.1-5.3) L 09/22/21 15:30 Hgb 12.7 g/dL (11.5-15.3) 09/22/21 15:30 Hct 39.9 % (37.0-47.0) 09/22/21 15:30 MCV 99.5 fl (81-99) H 09/22/21 15:30 MCH 31.7 pg (28.0-34.0) 09/22/21 15:30 MCHC 31.8 g/dL (30.0-36.0) 09/22/21 15:30 RDW 14.0 % (12.1-15.1) 09/22/21 15:30 Plt Count 135 10^3/cmm (130-400) 09/22/21 15:30 MPV 10.8 fL (7.4-10.4) H 09/22/21 15:30 Neut % (Auto) 84.4 % 09/22/21 15:30 Lymph % (Auto) 6.7 % 09/22/21 15:30 [place] % (Auto) 4.7 % 09/22/21 15:30 Eos % (Auto) 3.6 % 09/22/21 15:30 Baso % (Auto) 0.3 % 09/22/21 15:30 Neut # (Auto) 5.90 10^3/uL (1.8-7.7) 09/22/21 15:30 Lymph # (Auto) 0.5 10^3/uL (0.8-4.8) L 09/22/21 15:30 Price # (Auto) 0.3 10^3/uL (0.2-0.9) 09/22/21 15:30 Eos # (Auto) 0.3 10^3/uL (0.0-0.8) 09/22/21 15:30 Baso # (Auto) 0.0 10^3/uL (0.0-0.1) 09/22/21 15:30 Nucleated RBC % (auto) 0 % 09/22/21 15: Nucleated RBCs # 0.0 /100WBC 09/22/21 15:30 Sodium 139 mmol/L (136-145) 09/22/21 15:30 Potassium 4.5 mmol/L (3.5-5.1) 09/22/21 15: Chloride 100 mmol/L (98-107) 09/22/21 15:30 Carbon Dioxide 25 mmol/L (22-29) 09/22/21 15:30 Anion Gap 18.5 (5-19) 09/22/21 15:30 BUN 29 mg/dL (6-20) H 09/22/21 15:30 Creatinine 6.0 mg/dL (0.5-0.9) H* 09/22/21 15:30 GFR Calculation 7.2 mL/min (90-130) L 09/22/21 15:30 Glucose 185 mg/dL (65-115) H 09/22/21 15:30 Calculated Osmolality 299 mOsm/kg (285-295) H 09/22/21 15:30 Calcium 8.0 mg/dL (8.5-10.5) L 09/22/21 15:30 Total Bilirubin 0.6 mg/dL (0.15-1.2) 09/22/21 15:30 AST 19 U/L (0-32) 09/22/21 15:30 ALT 16 U/L (0-33) 09/22/21 15:30 Alkaline Phosphatase 141 IU/L (35-105) H 09/22/21 15:30 Troponin T Baseline 84 ng/L (0-10) H 09/22/21 15:30 Troponin T 120 Minute 91.05 ng/L (0-10) H 09/22/21 17:34 Delta Troponin T 7.05 ABS# (0-10) 09/22/21 17:34 Total Protein 6.3 g/dL (6.6-8.7) L 09/22/21 15:30 Albumin 4.0 g/dL (3.5-5.2) 09/22/21 15:30 Globulin 2.3 g/dL (1.3-4.6) 09/22/21 15:30 A&P Assessment and plan (1) Chest pain: Status: Acute (2) Shortness of breath: Status: Acute (3) Chronic diastolic CHF (congestive heart failure): Status: Chronic (4) Accelerated hypertension: Status: Acute (5) Hypoxemia: Status: Acute (6) Fluid overload: Status: Acute Plan Rizwana Herzog is a 56 year old female with past medical history of hypertension, diabetes, end-stage renal disease, on dialysis, gastroparesis, AKA, congestive heart failure with normal EF, peripheral arterial disease, coronary artery disease, previous cardiac catheterization in 2020 with placement of drug-eluting stent, Dr. Duarte's pt who is presenting to emergency room with complaints of chest pain which started suddenly this morning. Chest pain associated with abnormal troponin (chronically elevated) and severely elevated BNP. No ST elevation. The patient had similar presentation to ER yesterday. We are admitting her today to cardiac stepdown. We will monitor her EKG and troponin. We will continue aspirin, will add Plavix. We will continue statin. We will try to stabilize her blood pressure. Calling on-call cardio logist Dr. Smith. Additional testing per his recommendations. Hypertensive urgency. The patient states that this is unusual for her. She states that she is compliant with her medications. She did not finish her dialysis today due to severely elevated blood pressure. We will continue her home medications. We will add as needed hydralazine and labetalol. Will adjust her maintenance medications. Hypoxia and pulmonary edema. BNP is severely elevated. This could be the cause of her chest pain. However the opposite is also possible: Congestive heart failure due to ACS. Nephrology consult is called by ER. Dialysis treatments per nephrology recommendations. We appreciate input from the specialists. ??PNA. No evidence of infection. Will check procalcitonin. Diabetes. Will resume home medications and cover her with insulin sliding scale. End-stage renal disease. Dialysis treatments per nephrology. CODE STATUS. She wants to be full code. DVT prophylaxis. Heparin. The plan of care was discussed with the patient. She verbalized understanding and agreement. Attestations Medical Necessity Statement*: Considering patient's findings and past medical history I expect that the patient will spend more than 2 midnights in the hospital. 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
--- NOTE | 2021-09-22 18:57 | PC.NURSE ---
Patient arrived from ER, report received from EVAN Dangelo. Patient is alert and oriented. Patient has been oriented to room, patient guide, and use of call monroy. Vital signs have been assessed. Blood pressure is elevated, however, it was elevated previously as well. Patient has no current complaints of chest pain. Patient does endorse chronic back pain related to arthritis. Nurse will evaluate orders and precede appropriately.
[2021-09-22 19:02] LABS: Glucose Point of Care 167 mg/dL (70-110)
[2021-09-22 19:21] LABS: Procalcitonin 0.18 ng/mL (0-0.5)
[2021-09-22 20:18] LABS: Glucose Point of Care 151 mg/dL (70-110)
--- NOTE | 2021-09-22 21:18 | ECG_ITS ---
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 Measurements Intervals [place] Rate: 67 P: -34 RI: 191 QRS: -54 QRSD: 88 T: 66 QT: 434 QTc: 459 Interpretive Statements SINUS RHYTHM LEFT AXIS DEVIATION [QRS AXIS < -30] POSSIBLE ANTERIOR MYOCARDIAL INFARCTION , OF INDETERMINATE AGE [30 ms Q WAVE IN V3/V4, OR R < 0.2 mV IN V4] Compared to ECG 09/22/2021 17:20:02 No significant changes Electronically Signed On 09-23-2021 19:00:20 CDT by Gerald Smith M.D. [id number]
[2021-09-22] MEDS: ketorolac 0.5% Op 5 mL Btl 1 DROP EYE-BOTH (22:12)
[2021-09-22] MEDS: heparin 5,000 unit/mL INJ 1 mL 5000 UNIT SUBCUT (22:13)
[2021-09-22] MEDS: insulin glargine 100 units/1 mL 5 UNIT SUBCUT (22:13)
[2021-09-22] MEDS: insulin lispro 100 unit/1 mL SUBCUT (22:14)
[2021-09-22] MEDS: atorvastatin 40 mg Tablet PO (22:14)
[2021-09-22 22:31] LABS: Troponin 5 6HR 84.21 ng/L (0-10)
[2021-09-22 22:44] LABS: Troponin 5 6HR Delta 0.21 ng/L (0-12)
[2021-09-22] MEDS: morphine 4 mg/mL SDV 1 mL 2 MG IVP (22:54)
[2021-09-23] VITALS (16 sets, daily range): BP systolic 100–163; BP diastolic 54–75; PULSE 63–70; RESP 12–19; TEMP 36.6–37.1; O2SAT 94–98
[2021-09-23] MEDS: morphine 4 mg/mL SDV 1 mL 2 MG IVP (03:11)
[2021-09-23] MEDS: heparin 5,000 unit/mL INJ 1 mL 5000 UNIT SUBCUT ×2 (03:12→18:46)
[2021-09-23 03:36] LABS: Glucose Point of Care 72 mg/dL (70-110)
[2021-09-23 04:19] LABS: Basophils % 0.4 %; Eosinophils # 0.2 10^3/uL (0.0-0.8); Eosinophils % 4.8 %; Hematocrit 34.4 % (37.0-47.0); Hemoglobin 10.6 g/dL (11.5-15.3); Lymphocytes # 0.7 10^3/uL (0.8-4.8); Lymphocytes % 14.9 %; Mean Corpuscular HGB Conc 30.8 g/dL (30.0-36.0); Mean Corpuscular Hemoglobin 31.4 pg (28.0-34.0); Mean Corpuscular Volume 101.8 fl (81-99); Mean Platelet Volume 11.4 fL (7.4-10.4); Monocytes # 0.3 10^3/uL (0.2-0.9); Monocytes % 6.7 %; Neutrophils # 3.49 10^3/uL (1.8-7.7); Nucleated Red Blood Cells % 0 %; Platelet Count 120 10^3/cmm (130-400); Red Blood Count 3.38 10^6/uL (4.1-5.3); White Blood Count 4.8 10^3/uL (4.0-10.0)
[2021-09-23 04:52] LABS: Anion Gap 16.7 (5-19); Blood Urea Nitrogen 41 mg/dL (6-20); Calcium 8.7 mg/dL (8.5-10.5); Carbon Dioxide 26 mmol/L (22-29); Chloride 105 mmol/L (98-107); Chol HDL Ratio 2.83 mg/dL (0.0-4.40); Cholesterol 113 mg/dL (0-200); Glomerular Filtration Rate 6.1 mL/min (90-130); Glucose 81 mg/dL (65-115); HDL Cholesterol 40 mg/dL (60-100); LDL Cholesterol Calculated 61 mg/dL (50-129); LDL HDL Ratio 1.53 RATIO (0.00-3.22); Magnesium 2.1 mg/dL (1.7-2.3); NT Pro B Type Natriuretic Pept 13909 pg/mL (0-125); Osmolality Calculated 305 mOsm/kg (285-295); Potassium 4.7 mmol/L (3.5-5.1); Sodium 143 mmol/L (136-145); Triglycerides 58 mg/dL (0-150)
[2021-09-23 06:37] LABS: Glucose Point of Care 135 mg/dL (70-110)
[2021-09-23] MEDS: FUROsemide 40 mg Tablet PO (06:38)
[2021-09-23] MEDS: levothyroxine 150 mcg Tablet PO (06:38)
[2021-09-23] MEDS: pantoprazole DR 40 mg Tablet PO (07:54)
[2021-09-23] MEDS: cholecalciferol (vitamin D3) 1,000 unit Tablet 1000 UNIT PO (07:54)
[2021-09-23] MEDS: cloNIDine 0.1 mg Tablet PO ×2 (07:54→17:12)
[2021-09-23] MEDS: clopidogrel 75 mg Tablet PO (07:54)
[2021-09-23] MEDS: aspirin 81 mg Chew Tablet PO (07:54)
[2021-09-23] MEDS: escitalopram 10 mg Tablet 20 MG PO (07:55)
[2021-09-23] MEDS: hyDRALAzine 25 mg Tablet PO ×2 (07:55→21:23)
[2021-09-23] MEDS: amlodipine 10 mg Tablet PO (07:55)
[2021-09-23] MEDS: ketorolac 0.5% Op 5 mL Btl 1 DROP EYE-BOTH ×3 (07:55→21:22)
[2021-09-23] MEDS: insulin glargine 100 units/1 mL 5 UNIT SUBCUT (07:56)
--- NOTE | 2021-09-23 10:15 | P.PN_ITS ---
Subjective Subjective: Doing well. Denies chest pain today. No shortness of breath. No headache. No fever or chills. No nausea or vomiting. Medications: Medication Review Details: Generic Name Dose Route Start Last Admin Trade Name Laurence PRN Reason Stop Dose Admin Amlodipine Besylat e 10 mg 09/23/21 09:00 09/23/21 07:55 Amlodipine 10 Mg Tablet PO 10 mg DAILY JERSON Administration Aspirin 81 mg 09/23/21 08:00 09/23/21 07:54 Aspirin 81 Mg Ch ew Tablet PO 81 mg DAILY@08 JERSON Administration Atorvastatin Calci um 40 mg 09/22/21 20:00 09/22/21 22:14 Atorvastatin 40 Mg Tablet PO 40 mg DAILY@20 JERSON Administration Clonidine HCl 0.1 mg 09/22/21 18:00 09/23/21 07:54 Clonidine 0.1 Mg Tablet PO 0.1 mg BID JERSON Administration Clopidogrel Bisulf ate 75 mg 09/23/21 09:00 09/23/21 07:54 Clopidogrel 75 M g Tablet PO 75 mg DAILY JERSON Administration Escitalopram Oxala te 20 mg 09/23/21 09:00 09/23/21 07:55 Escitalopram 10 Mg Tablet PO 20 mg DAILY JERSON Administration Furosemide 40 mg 09/23/21 06:00 09/23/21 06:38 Furosemide 40 Mg Tablet PO 40 mg QAM JERSNO Administration Heparin Sodium (Po rcine) 5,000 unit 09/22/21 19:00 09/23/21 03:12 Heparin 5,000 Un it/Ml Inj 1 Ml SUBCUT 5,000 unit Q8H JERSON Administration Hydralazine HCl 25 mg 09/23/21 09:00 09/23/21 07:55 Hydralazine 25 M g Tablet PO 25 mg TID [facility] Administration Insulin Glargine 5 unit 09/22/21 20:00 09/23/21 07:56 Insulin Glargine 100 Units/1 Ml SUBCUT 5 unit BID@,20 [facility] Administration Insulin Human Lisp ro 0 unit 09/22/21 21:00 09/23/21 07:36 Insulin Lispro 1 00 Unit/1 Ml SUBCUT Not Given WM&BEDTIME [facility] Protocol Ketorolac Trometha mine 1 drop 09/22/21 21:00 09/23/21 07:55 Ketorolac 0.5% O p 5 Ml Btl EYE-BOTH 0.5 % QID [facility] Administration Levothyroxine Sodi um 150 mcg 09/23/21 06:00 09/23/21 06:38 Levothyroxine 15 0 Mcg Tablet PO 150 mcg QAM [facility] Administration Morphine Sulfate 2 mg 09/22/21 18:28 09/23/21 03:11 Morphine 4 Mg/Ml Sdv 1 Ml IVP 2 mg Q4H PRN Administration SEVERE PAIN Non-Formulary Medi cation 1 tab 09/23/21 09:00 09/23/21 07:36 B Complex-Vitami n C-Folic Acid [Di alyvite] PO Not Given DAILY [facility] Non-Formulary Medi cation 1 cap 09/22/21 20:00 09/23/21 07:37 Bison 3-Dha-Epa- Fish Oil [Fish Oil ] PO Not Given BID@08,20 [facility] Pantoprazole Sodiu m 40 mg 09/23/21 08:00 09/23/21 07:[address] 40 Mg Tablet PO 40 mg DAILY@08 [facility] Administration Vitamin D 1,000 unit 09/23/21 08:00 09/23/21 07:54 Cholecalciferol (Vitamin D3) 1,000 Unit Tablet PO 1,000 unit DAILY@08 [facility] Administration Vitals/I&O/Wt Last Vital Signs Temp 98.8 F 09/23/21 09:45 Pulse 66 09/23/21 09:45 Resp 12 09/23/21 09:45 BP 144/65 09/23/21 09:45 Pulse Ox 98 09/23/21 09:45 09/22/21 09/23/21 09/23/21 22:59 06:59 14:59 Intake Total 50 / 50 35 / 85 236 / 236 Balance 50 / 50 35 / 85 236 / 236 Weight last 48 hrs Weight 86.183 kg Weight 86.183 kg Physical Exam Narrative: The patient is currently awake alert oriented. No acute distress. Mood and affect are appropriate. Responses are adequate. Skin is warm and dry. Moist mucous membranes. Neck no JVD. Supple. Lungs decreased breath sounds bibasilarly. No respiratory distress currently with supplemental oxygen. No significant wheezes or crackles. Heart S1, S2, regular Abdomen is soft, nontender, bowel sounds are present Extremities AKA. No peripheral cyanosis. No calf tenderness. Eyes. Left side is red. She had recent cataract surgery on that side. Extraocular muscles are intact. No focal deficits. No facial asymmetry. Normal speech. Data : 09/23/21 03:41 09/23/21 03:41 Other Labs: Radiology Impressions Chest X-Ray 09/22/21 15:18 IMPRESSION: 1. Infiltrate and atelectasis in the left lower lobe. Pneumonia is not excluded. 2. Mild cardiac enlargement. Laboratory Results WBC 4.8 10^3/uL (4.0-10.0) 09/23/21 03:41 RBC 3.38 10^6/uL (4.1-5.3) L 09/23/21 03:41 Hgb 10.6 g/dL (11.5-15.3) L 09/23/21 03:41 Hct 34.4 % (37.0-47.0) L 09/23/21 03:41 MCV 101.8 fl (81-99) H 09/23/21 03:41 MCH 31.4 pg (28.0-34.0) 09/23/21 03:41 MCHC 30.8 g/dL (30.0-36.0) 09/23/21 03:41 RDW 14.0 % (12.1-15.1) 09/23/21 03:41 Plt Count 120 10^3/cmm (130-400) L 09/23/21 03:41 MPV 11.4 fL (7.4-10.4) H 09/23/21 03:41 Neut % (Auto) 73.0 % 09/23/21 03:41 Lymph % (Auto) 14.9 % 09/23/21 03:41 [facility] % (Auto) 6.7 % 09/23/21 03:41 Eos % (Auto) 4.8 % 09/23/21 03:41 Baso % (Auto) 0.4 % 09/23/21 03:41 Neut # (Auto) 3.49 10^3/uL (1.8-7.7) 09/23/21 03:41 Lymph # (Auto) 0.7 10^3/uL (0.8-4.8) L 09/23/21 03:41 [facility] # (Auto) 0.3 10^3/uL (0.2-0.9) 09/23/21 03:41 Eos # (Auto) 0.2 10^3/uL (0.0-0.8) 09/23/21 03:41 Baso # (Auto) 0.0 10^3/uL (0.0-0.1) 09/23/21 03:41 Nucleated RBC % (auto) 0 % 09/23/21 03:41 Nucleated RBCs # 0.0 /100WBC 09/23/21 03:41 Sodium 143 mmol/L (136-145) 09/23/21 03:41 Potassium 4.7 mmol/L (3.5-5.1) 09/23/21 03:41 Chloride 105 mmol/L (98-107) 09/23/21 03:41 Carbon Dioxide 26 mmol/L (22-29) 09/23/21 03:41 Anion Gap 16.7 (5-19) 09/23/21 03:41 BUN 41 mg/dL (6-20) H 09/23/21 03:41 Creatinine 7.0 mg/dL (0.5-0.9) H* 09/23/21 03:41 GFR Calculation 6.1 mL/min (90-130) L 09/23/21 03:41 Glucose 81 mg/dL (65-115) 09/23/21 03:41 POC Glucose 135 mg/dL (70-110) H 09/23/21 06:31 Calculated Osmolality 305 mOsm/kg (285-295) H 09/23/21 03:41 Calcium 8.7 mg/dL (8.5-10.5) 09/23/21 03:41 Magnesium 2.1 mg/dL (1.7-2.3) 09/23/21 03:41 Magnesium Cancelled 09/23/21 03:41 Total Bilirubin 0.6 mg/dL (0.15-1.2) 09/22/21 15:30 AST 19 U/L (0-32) 09/22/21 15:30 ALT 16 U/L (0-33) 09/22/21 15:30 Alkaline Phosphatase 141 IU/L (35-105) H 09/22/21 15:30 Troponin T Baseline 84 ng/L (0-10) H 09/22/21 15:30 Troponin T 120 Minute 91.05 ng/L (0-10) H 09/22/21 17:34 Delta Troponin T 7.05 ABS# (0-10) 09/22/21 17:34 Troponin T Hi Sens 6Hr 84.21 ng/L (0-10) H 09/22/21 21:49 Troponin T Hi Sens 6Hr Delta 0.21 ng/L (0-12) 09/22/21 21:49 NT-Pro-B Natriuret Pep 63574 pg/mL (0-125) H 09/23/21 03:41 NT-Pro-B Natriuret Pep Cancelled 09/23/21 03:41 Total Protein 6.3 g/dL (6.6-8.7) L 09/22/21 15:30 Albumin 4.0 g/dL (3.5-5.2) 09/22/21 15:30 Globulin 2.3 g/dL (1.3-4.6) 09/22/21 15:30 Triglycerides 58 mg/dL (0-150) 09/23/21 03:41 Triglycerides Cancelled 09/23/21 03:41 Cholesterol 113 mg/dL (0-200) 09/23/21 03:41 Cholesterol Cancelled 09/23/21 03:41 LDL Cholesterol, Calc 61 mg/dL (50-129) 09/23/21 03:41 LDL Cholesterol, Calc Cancelled 09/23/21 03:41 HDL Cholesterol 40 mg/dL (60-100) L 09/23/21 03:41 HDL Cholesterol Cancelled 09/23/21 03:41 LDL/HDL Ratio 1.53 RATIO (0.00-3.22) 09/23/21 03:41 LDL/HDL Ratio Cancelled 09/23/21 03:41 Cholesterol/HDL Ratio 2.83 mg/dL (0.0-4.40) 09/23/21 03:41 Cholesterol/HDL Ratio Cancelled 09/23/21 03:41 Procalcitonin 0.18 ng/mL (0-0.5) 09/22/21 15:30 A&P Assessment and plan (1) Chest pain: Status: Acute (2) Shortness of breath: Status: Acute (3) Chronic diastolic CHF (congestive heart failure): Status: Chronic (4) Accelerated hypertension: Status: Acute (5) Hypoxemia: Status: Acute (6) Fluid overload: Status: Acute Plan Rizwana Herzog is a 56 year old female with past medical history of hypertension, diabetes, end-stage renal disease, on dialysis, gastroparesis, AKA, congestive heart failure with normal EF, peripheral arterial disease, coronary artery disease, previous cardiac catheterization in 2019 with placement of drug-eluting stent, Dr. Duarte's pt who is presenting to emergency room with complaints of chest pain which started suddenly this morning. Chest pain associated with abnormal troponin (chronically elevated) and severely elevated BNP. No ST elevation. The patient had similar presentation to ER recently. Currently resolved. We will continue aspirin, Plavix, statin. Cardiology consult is called. Appreciate Dr. Pitt's input. Hypertensive urgency. Medications are adjusted. It is better today. Continue current treatment for now. Hypoxia and pulmonary edema. BNP is severely elevated. This could be the cause of her chest pain. However the opposite is also possible: Congestive heart fa ilure due to ACS. Nephrology consult is called by ER. Dialysis treatments per nephrology recommendations. We appreciate input from the specialists. No pneumonia. Procalcitonin level was normal. No evidence of infection. Diabetes. Will resume home medications and cover her with insulin sliding scale. End-stage renal disease. Dialysis treatments per nephrology. CODE STATUS. She wants to be full code. DVT prophylaxis. Heparin. The plan of care was discussed with the patient. She verbalized understanding and agreement. Attestations Medical Necessity Statement*: The patient needs another 24 to 48 hours for completion of work-up and stabilization of vital signs, volume status. 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
--- NOTE | 2021-09-23 11:16 | PM.CONSULT ---
Providers/Reason For Consult Consulting Physician/Specialty*: Dong Pitt MD/ Cardiology Reason for Consult*: Chest pain Requesting Physician: Dr Schuler Attending Physician: Tacos Schuler Primary Care Provider: Jacob Sharp DO History of Present Illness History of Present Illness Rizwana Herzog is a 56 year old female with past medical history of coronary artery disease s/p LAD stents, end-stage renal disease on dialysis, hypertension and diabetes presented to the hospital with symptoms of chest pain. They were of several hours duration and felt like chest pain which was not moderate intensity. Symptoms improved with 2 doses of nitro. EKG did not show significant ST-T wave changes. Troponin was elevated however was at her baseline and did not trend up significantly. NT proBNP is more than 13,000. At time of presentation patient's blood pressure was also very high. She had multiple episodes of breath elevated blood pressure associated with chest pain that resolves once blood pressure is better controlled. Review of Systems Const: Denies: fever(s), chills or diaphoresis ENMT: Denies: throat pain, ear or mastoid pain, nasal discharge or nasal congestion Card: Reports: chest pain and edema; Denies: syncope Resp: Reports: dyspnea GI: Denies: abdominal pain, nausea or vomiting : Denies: flank pain, difficulty voiding, dysuria, urinary frequency or urinary urgency Skin/Breast: Denies: rash or pruritus Medications/Allergies Home Medications Medication Instructions Recorded Confirmed Last Taken Type aspirin 81 mg chewable tablet 81 mg PO DAILY@06/25/19 09/22/21 09/22/21 History omega 8-tbv-lcf-fish oil 300 1 cap PO BID@01/17/20 09/22/21 09/22/21 History mg-1,000 mg capsule,delayed release (Fish Oil) nitroglycerin 0.4 mg sublingual 0.4 mg SUBLINGUAL Q5M PRN #25 tab 03/26/20 09/22/21 04/18/20 Rx tablet cholecalciferol (vitamin D3) 25 25 mcg PO DAILY@05/14/20 09/22/21 09/22/21 History mcg (1,000 unit) tablet (Vitamin D3) clonidine HCl 0.1 mg tablet 0.1 mg PO BID #60 tab 01/03/21 09/22/21 09/22/21 Rx pantoprazole 40 mg tablet,delayed 40 mg PO DAILY@08 #90 tab 04/02/21 09/22/21 09/22/21 Rx release atorvastatin 40 mg tablet 40 mg PO DAILY@20 #90 tab 04/28/21 09/22/21 09/22/21 Rx pen needle, diabetic 32 gauge x #100 ea 06/17/21 09/22/21 Unknown Rx (ReliOn Pen [place]) amlodipine 10 mg tablet 10 mg PO DAILY 30 Days #30 tab 07/22/21 09/22/21 09/22/21 Rx escitalopram oxalate 20 mg tablet 20 mg PO DAILY 07/22/21 09/22/21 09/22/21 History furosemide 40 mg tablet 40 mg PO QAM #30 tab 08/12/21 09/22/21 09/22/21 Rx PROSTHETIC SUPPLIES #1 ea 08/21/21 09/22/21 Unknown Rx clonazepam 0.25 mg disintegrating 0.25 mg PO BID PRN 09/02/21 09/22/21 09/22/21 History tablet levothyroxine 150 mcg tablet 150 mcg PO QAM 09/02/21 09/22/21 09/22/21 History (Euthyrox) ondansetron HCl 8 mg tablet 8 mg PO Q8H PRN 09/02/21 09/22/21 Unknown History vitamin B complex-vitamin C 100 1 tab PO DAILY 09/02/21 09/22/21 09/22/21 History mg-folic acid 1 mg tablet (Dialyvite) insulin glargine 100 unit/mL (3 5 unit (0.05 mL) SUBCUT BID@09/05/21 09/22/21 09/22/21 Rx mL) subcutaneous pen (Lantus #15 ml Solostar U-100 Insulin) glucosamine sulf dipot 1 cap PO DAILY 09/22/21 09/22/21 09/22/21 History chlr,msm,chond 550 mg-C 30 mg-janet 1 mg capsule (Glucosamine Chondroitin) ketorolac 0.5 % eye drops 1 drp OPHTHALMIC (EYE) QID 09/22/21 09/22/21 09/22/21 History Allergies Allergy/AdvReac Type Severity Reaction Status Date / Time metformin [From Glucophage] Allergy Severe Unknown Verified 09/22/21 16:22 venlafaxine [From Effexor] Allergy Severe ADR-Shakine Verified 09/22/21 16:22 ss Current Medications Generic Name Dose Route Start Last Admin Trade Name Laurence PRAlex Reason Stop Dose Admin Amlodipine Besylate 10 mg 09/23/21 09:00 09/23/21 07:55 Amlodipine 10 Mg Tablet PO 10 mg DAILY JERSON Administration Aspirin 81 mg 09/23/21 08:00 09/23/21 07:54 Aspirin 81 Mg Chew Tablet PO 81 mg DAILY@08 JERSON Administration Atorvastatin Calcium 40 mg 09/22/21 20:00 09/22/21 22:14 Atorvastatin 40 Mg Tablet PO 40 mg DAILY@20 JERSON Administration Clonidine HCl 0.1 mg 09/22/21 18:00 09/23/21 07:54 Clonidine 0.1 Mg Tablet PO 0.1 mg BID JERSON Administration Clopidogrel Bisulfate 75 mg 09/23/21 09:00 09/23/21 07:54 Clopidogrel 75 Mg Tablet PO 75 mg DAILY JERSON Administration Escitalopram Oxalate 20 mg 09/23/21 09:00 09/23/21 07:55 Escitalopram 10 Mg Tablet PO 20 mg DAILY JERSON Administration Furosemide 40 mg 09/23/21 06:00 09/23/21 06:38 Furosemide 40 Mg Tablet PO 40 mg QAM [facility] Administration Heparin Sodium (Porcine) 5,000 unit 09/22/21 19:00 09/23/21 03:12 Heparin 5,000 Unit/Ml Inj 1 Ml SUBCUT 5,000 unit Q8H JERSON Administration Hydralazine HCl 25 mg 09/23/21 09:00 09/23/21 07:55 Hydralazine 25 Mg Tablet PO 25 mg TID [facility] Administration Insulin Glargine 5 unit 09/22/21 20:00 09/23/21 07:56 Insulin Glargine 100 Units/1 Ml SUBCUT 5 unit BID@08,20 [facility] Administration Insulin Human Lispro 0 unit 09/22/21 21:00 09/23/21 07:36 Insulin Lispro 100 Unit/1 Ml SUBCUT Not Given WM&BEDTIME [facility] Protocol Ketorolac Tromethamine 1 drop 09/22/21 21:00 09/23/21 07:55 Ketorolac 0.5% Op 5 Ml Btl EYE-BOTH 0.5 % QID [facility] Administration Levothyroxine Sodium 150 mcg 09/23/21 06:00 09/23/21 06:38 Levothyroxine 150 Mcg Tablet PO 150 mcg QAM [facility] Administration Morphine Sulfate 2 mg 09/22/21 18:28 09/23/21 03:11 Morphine 4 Mg/Ml Sdv 1 Ml IVP 2 mg Q4H PRN Administration SEVERE PAIN Non-Formulary Medication 1 tab 09/23/21 09:00 09/23/21 07:36 B Complex-Vitamin C-Folic Acid [Dialyvite] PO Not Given DAILY [facility] Non-Formulary Medication 1 cap 09/22/21 20:00 09/23/21 07:37 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 [Fish Oil] PO Not Given BID@08,20 [facility] Pantoprazole Sodium 40 mg 09/23/21 08:00 09/23/21 07:[address] 40 Mg Tablet PO 40 mg DAILY@08 [facility] Administration Vitamin D 1,000 unit 09/23/21 08:00 09/23/21 07:54 Cholecalciferol (Vitamin D3) 1,000 Unit Tablet PO 1,000 unit DAILY@08 [facility] Administration PFSH Acute PFSH: Medical History Adjustment disorder with mixed disturbance of emotions and conduct Anxiety BPPV (benign paroxysmal positional vertigo) CAD (coronary artery disease) Carotid stenosis 04/2020: Right < 50%, Left near 70% Chronic diastolic CHF (congestive heart failure) 12/2020 EF 55%, grade II/IV diastolic dysfunction Chronic left sacroiliac joint pain Claustrophobia Diabetes mellitus Diverticulitis Elevated troponin End stage renal disease ESBL (extended spectrum beta-lactamase) producing bacteria infection DAILY (generalized anxiety disorder) Gastroparesis GERD (gastroesophageal reflux disease) Gram-negative bacteremia Hemodialysis catheter dysfunction HTN (hypertension) Hyperlipidemia Hypothyroidism Major depression, recurrent DOROTEO on CPAP PAD (peripheral artery disease) Partial nontraumatic amputation of left foot (~06/2019) Peripheral vascular disease Peritonitis associated with peritoneal dialysis Phantom pain Pneumonia due to COVID-19 virus (~12/2020) Suicidal ideation TIA (transient ischemic attack) Vitamin D deficiency Surgical History AV (arteriovenous fistula) (~10/2020) H/O hysterectomy with oophorectomy History of appendectomy History of cataract surgery History of heart artery stent PCI to LAD, done in [place], [place] 10/2018 ENRIQUE to mid LAD at [facility] 04/2020 History of hysterectomy History of left heart catheterization 04/2020 Findings: 1. There is severe coronary artery disease. 2. FFR of mid LAD was 0.76. 3. Severe OM 2 stenosis. However this is a small sized distal vessel. 4. Mid Left Anterior Descending Coronary Artery was treated with Balloon and Drug Eluting Stent History of right below knee amputation Peritoneal dialysis catheter in place Removed due to recurrent peritonitis S/P cholecystectomy S/P PICC central line placement (~2019) Status post amputation of toe Family History Denies family history of CAD (coronary artery disease) Clotting disorder Dementia Bleeding disorder Social History Smoking and tobacco status: never smoked Alcohol intake: never Household members: spouse and family History of recent travel: No Vitals/I&O/Wt Last Vital Signs Temp 98.8 F 09/23/21 09:45 Pulse 66 09/23/21 09:45 Resp 12 09/23/21 09:45 BP 144/65 09/23/21 09:45 Pulse Ox 98 09/23/21 09:45 09/22/21 09/23/21 09/23/21 22:59 06:59 14:59 Intake Total 50 / 50 35 / 85 236 / 236 Balance 50 / 50 35 / 85 236 / 236 Weight last 48 hrs Weight 190 lb Weight 190 lb Physical Exam Narrative: GENERAL: Patient is alert, awake and oriented x3. [] NECK: No jugular vein distension. [] HEENT: No cyanosis. No icterus. No pallor. [] HEART: Regular S1 and S2. No murmur, rub or gallop. [] LUNGS: Clear to auscultate bilaterally. [] ABDOMEN: Soft, nontender and nondistended. Positive bowel sounds. No guarding, rebound or tenderness. [] CENTRAL NERVOUS SYSTEM: Grossly nonfocal. [] EXTREMITIES: Lower extremity with 1+ edema Data : 09/24/21 03:49 09/24/21 03:49 A&P Assessment and plan (1) CAD (coronary artery disease): Status: Chronic Qualifiers: Associated angina: with stable angina Coronary Disease-Associated Artery/Lesion type: [place] artery [place] vs. transplanted heart: [place] heart Qualified Code(s): I25.118 - Atherosclerotic heart disease of [place] coronary artery with other forms of angina pectoris (2) PAD (peripheral artery disease): Status: Chronic (3) Mixed dyslipidemia: Status: Chronic (4) Diabetes mellitus, with long-term current use of insulin: Status: Chronic Qualifiers: Diabetes mellitus complication detail: with other circulatory complications Diabetes mellitus complication status: with circulatory complication Diabetes mellitus type: type 2 Qualified Code(s): E11.59 - Type 2 diabetes mellitus with other circulatory complications; 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 We will recommend adding Coreg 6.25 mg twice daily to his medication regimen and uptitrate as tolerated. Hydralazine has been started today. Continue amlodipine Given her prior cardiac history and risk factors, will proceed with stress test. Low-sodium diet advised. Thank you for involving us with care of this patient. We will continue to follow. Please call with questions. 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 transplanted heart: [place] heart PAD (peripheral artery disease) I73.9 Mixed dyslipidemia E78.2 Diabetes mellitus, with long-term current use of insulin E11.59; Z79.4 Diabetes mellitus complication detail: with other circulatory complications Diabetes mellitus complication status: with circulatory complication Diabetes mellitus type: type 2 Hyperlipidemia E78.5 Hyperlipidemia type: unspecified HTN (hypertension) I10
--- NOTE | 2021-09-23 11:36 | PC.NURSE ---
pt off floor for dialysis
--- NOTE | 2021-09-23 12:54 | P.CONIM_ITS ---
Providers/Reason For Consult Consulting Physician/Specialty*: Nephro Reason for Consult*: ESRD mgmt Attending Physician: Tacos Schuler Primary Care Provider: Jacob Sharp DO History of Present Illness History of Present Illness Ms. Herzog presented to the hospital with some chest pain. This is similar to chest pain that she had previously. EKG demonstrated chronic anterior ischemic changes, troponin elevated but I do chronic level. Chest x-ray with some evidence of vascular congestion and elevated BNP. Chemistry appeared normal. No acute urinary issues. Dialysis organized and she is now seen and examined on hemodialysis today. She is tolerating the therapy well without any complications. Dialysis parameters were reviewed in detail, hemodynamics remained stable during her dialysis treatment. Very mild global edema. Access is working well. No other new, acute issues. Medications/Allergies Home Medications Medication Instructions Recorded Confirmed Last Taken Type aspirin 81 mg chewable tablet 81 mg PO DAILY@08 06/25/19 09/22/21 09/22/21 History omega 7-ecj-ayp-fish oil 300 1 cap PO BID@01/17/20 09/22/21 09/22/21 History mg-1,000 mg capsule,delayed release (Fish Oil) nitroglycerin 0.4 mg sublingual 0.4 mg SUBLINGUAL Q5M PRN #25 tab 03/26/20 09/22/21 04/18/20 Rx tablet cholecalciferol (vitamin D3) 25 25 mcg PO DAILY@08 05/14/20 09/22/21 09/22/21 History mcg (1,000 unit) tablet (Vitamin D3) clonidine HCl 0.1 mg tablet 0.1 mg PO BID #60 tab 01/03/21 09/22/21 09/22/21 Rx pantoprazole 40 mg tablet,delayed 40 mg PO DAILY@08 #90 tab 04/02/21 09/22/21 09/22/21 Rx release atorvastatin 40 mg tablet 40 mg PO DAILY@20 #90 tab 04/28/21 09/22/21 09/22/21 Rx pen needle, diabetic 32 gauge x #100 ea 06/17/21 09/22/21 Unknown Rx 5/32 (ReliOn Pen [place]) amlodipine 10 mg tablet 10 mg PO DAILY 30 Days #30 tab 07/22/21 09/22/21 09/22/21 Rx escitalopram oxalate 20 mg tablet 20 mg PO DAILY 07/22/21 09/22/21 09/22/21 History furosemide 40 mg tablet 40 mg PO QAM #30 tab 08/12/21 09/22/21 09/22/21 Rx PROSTHETIC SUPPLIES #1 ea 08/21/21 09/22/21 Unknown Rx clonazepam 0.25 mg disintegrating 0.25 mg PO BID PRN 09/02/21 09/22/21 09/22/21 History tablet levothyroxine 150 mcg tablet 150 mcg PO QAM 09/02/21 09/22/21 09/22/21 History (Euthyrox) ondansetron HCl 8 mg tablet 8 mg PO Q8H PRN 09/02/21 09/22/21 Unknown History vitamin B complex-vitamin C 100 1 tab PO DAILY 09/02/21 09/22/21 09/22/21 History mg-folic acid 1 mg tablet (Dialyvite) insulin glargine 100 unit/mL (3 5 unit (0.05 mL) SUBCUT BID@,09/05/21 09/22/21 09/22/21 Rx mL) subcutaneous pen (Lantus #15 ml Solostar U-100 Insulin) glucosamine sulf dipot 1 cap PO DAILY 09/22/21 09/22/21 09/22/21 History chlr,msm,chond 550 mg-C 30 mg-janet 1 mg capsule (Glucosamine Chondroitin) ketorolac 0.5 % eye drops 1 drp OPHTHALMIC (EYE) QID 09/22/21 09/22/21 09/22/21 History Allergies Allergy/AdvReac Type Severity Reaction Status Date / Time metformin [From Glucophage] Allergy Severe Unknown Verified 09/22/21 16:22 venlafaxine [From Effexor] Allergy Severe ADR-Shakine Verified 09/22/21 16:22 ss Current Medications Generic Name Dose Route Start Last Admin Trade Name Freq PRN Reason Stop Dose Admin Amlodipine Besylate 10 mg 09/23/21 09:00 09/23/21 07:55 Amlodipine 10 Mg Tablet PO 10 mg DAILY JERSON Administration Aspirin 81 mg 09/23/21 08:00 09/23/21 07:54 Aspirin 81 Mg Chew Tablet PO 81 mg DAILY@08 [facility] Administration Atorvastatin Calcium 40 mg 09/22/21 20:00 09/22/21 22:14 Atorvastatin 40 Mg Tablet PO 40 mg DAILY@20 JERSON Administration Clonidine HCl 0.1 mg 09/22/21 18:00 09/23/21 07:54 Clonidine 0.1 Mg Tablet PO 0.1 mg BID [facility] Administration Clopidogrel Bisulfate 75 mg 09/23/21 09:00 09/23/21 07:54 Clopidogrel 75 Mg Tablet PO 75 mg DAILY [facility] Administration Escitalopram Oxalate 20 mg 09/23/21 09:00 09/23/21 07:55 Escitalopram 10 Mg Tablet PO 20 mg DAILY JERSON Administration Furosemide 40 mg 09/23/21 06:00 09/23/21 06:38 Furosemide 40 Mg Tablet PO 40 mg QAM [facility] Administration Heparin Sodium (Porcine) 5,000 unit 09/22/21 19:00 09/23/21 12:39 Heparin 5,000 Unit/Ml Inj 1 Ml SUBCUT Not Given Q8H [facility] Hydralazine HCl 25 mg 09/23/21 09:00 09/23/21 07:55 Hydralazine 25 Mg Tablet PO 25 mg TID [facility] Administration Insulin Glargine 5 unit 09/22/21 20:00 09/23/21 07:56 Insulin Glargine 100 Units/1 Ml SUBCUT 5 unit BID@ [facility] Administration Insulin Human Lispro 0 unit 09/22/21 21:00 09/23/21 12:39 Insulin Lispro 100 Unit/1 Ml SUBCUT Not Given WM&BEDTIME [facility] Protocol Ketorolac Tromethamine 1 drop 09/22/21 21:00 09/23/21 07:55 Ketorolac 0.5% Op 5 Ml Btl EYE-BOTH 0.5 % QID [facility] Administration Levothyroxine Sodium 150 mcg 09/23/21 06:00 09/23/21 06:38 Levothyroxine 150 Mcg Tablet PO 150 mcg QAM [facility] Administration Morphine Sulfate 2 mg 09/22/21 18:28 09/23/21 03:11 Morphine 4 Mg/Ml Sdv 1 Ml IVP 2 mg Q4H PRN Administration SEVERE PAIN Non-Formulary Medication 1 tab 09/23/21 09:00 09/23/21 07:36 B Complex-Vitamin C-Folic Acid [Dialyvite] PO Not Given DAILY [facility] Non-Formulary Medication 1 cap 09/22/21 20:00 09/23/21 07:37 [place] 0-Tqu-Ahf-Fish Oil [Fish Oil] PO Not Given BID@08,20 [facility] Pantoprazole Sodium 40 mg 09/23/21 08:00 09/23/21 07:[address] 40 Mg Tablet PO 40 mg DAILY@08 [facility] Administration Vitamin D 1,000 unit 09/23/21 08:00 09/23/21 07:54 Cholecalciferol (Vitamin D3) 1,000 Unit Tablet PO 1,000 unit DAILY@08 [facility] Administration PFSH Acute PFSH: Medical History Adjustment disorder with mixed disturbance of emotions and conduct Anxiety BPPV (benign paroxysmal positional vertigo) CAD (coronary artery disease) Carotid stenosis 04/2020: Right < 50%, Left near 70% Chronic diastolic CHF (congestive heart failure) 12/2020 EF 55%, grade II/IV diastolic dysfunction Chronic left sacroiliac joint pain Claustrophobia Diabetes mellitus Diverticulitis Elevated troponin End stage renal disease ESBL (extended spectrum beta-lactamase) producing bacteria infection DAILY (generalized anxiety disorder) Gastroparesis GERD (gastroesophageal reflux disease) Gram-negative bacteremia Hemodialysis catheter dysfunction HTN (hypertension) Hyperlipidemia Hypothyroidism Major depression, recurrent DOROTEO on CPAP PAD (peripheral artery disease) Partial nontraumatic amputation of left foot (~06/2019) Peripheral vascular disease Peritonitis associated with peritoneal dialysis Phantom pain Pneumonia due to COVID-19 virus (~12/2020) Suicidal ideation TIA (transient ischemic attack) Vitamin D deficiency Surgical History AV (arteriovenous fistula) (~10/2020) H/O hysterectomy with oophorectomy History of appendectomy History of cataract surgery History of heart artery stent PCI to LAD, done in [place], [place] 10/2018 ENRIQUE to mid LAD at [facility] 04/2020 History of hysterectomy History of left heart catheterization 04/2020 Findings: 1. There is severe coronary artery disease. 2. FFR of mid LAD was 0.76. 3. Severe OM 2 stenosis. However this is a small sized distal vessel. 4. Mid Left Anterior Descending Coronary Artery was treated with Balloon and Drug Eluting Stent History of right below knee amputation Peritoneal dialysis catheter in place Removed due to recurrent peritonitis S/P cholecystectomy S/P PICC central line placement (~2019) Status post amputation of toe Family History Denies family history of CAD (coronary artery disease) Clotting disorder Dementia Bleeding disorder Social History Smoking and tobacco status: never smoked Alcohol intake: never Household members: spouse and family History of recent travel: No Vitals/I&O/Wt Last Vital Signs Temp 98.8 F 09/23/21 09:45 Pulse 66 09/23/21 09:45 Resp 12 09/23/21 09:45 BP 144/65 09/23/21 09:45 Pulse Ox 98 09/23/21 09:45 09/22/21 09/23/21 09/23/21 22:59 06:59 14:59 Intake Total 50 / 50 35 / 85 236 / 236 Balance 50 / 50 35 / 85 236 / 236 Weight last 48 hrs Weight 86.183 kg Weight 86.183 kg Data : 09/23/21 03:41 09/23/21 03:41 A&P Assessment and plan (1) Chronic kidney disease: Status: Acute Plan 1. End-stage renal disease Seen and examined on hemodialysis today, plan to do dialysis again tomorrow morning to get her back on her usual schedule. Wednesday, Wednesday and Wednesday Dose medication for GFR less than 15 on dialysis 2. Heart disease Chest pain, tends to be recurrent, this presentation is similar to prior with chronic troponin elevation, chronic EKG changes. Defer management to cardiology. 3. Hemodynamics. Blood pressure and pulse remains stable at this time. 4. Chronic ESRD issues To be handled as an outpatient, management as part of standard monthly care. Thank you for consultation Zhou Mcfarland MD Nephrology [phone] Patient seen and examined via telemedicine, with the assistance of the bedside RN > 25 min spent in evaluation and mgmt of patient Coding Level of Care Code Acute Diaphragm Builder for Maris Fwparth Diagnoses Chronic kidney disease N18.9
[2021-09-23 14:40] LABS: Glucose Point of Care 93 mg/dL (70-110)
[2021-09-23 17:06] LABS: Glucose Point of Care 138 mg/dL (70-110)
[2021-09-23] MEDS: carvedilol 3.125 mg Tablet PO (18:17)
[2021-09-23 20:38] LABS: Glucose Point of Care 188 mg/dL (70-110)
--- NOTE | 2021-09-23 20:50 | ECG_ITS ---
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 Interpretive Statements NAME OF STUDY: LEXISCAN SESTAMIBI STRESS TEST INDICATION: [Chest Pain, ] Procedure: At the baseline, the blood pressure was 136/57mmHg with a heart rate of 61 bpm. The electrocardiogram showed normal sinus rhythm, normal axis with normal ST and T's. The Lexiscan was infused over a period of 20 seconds. A total of 0.4 mg of Lexiscan was infused. The stress phase was continued for a total of 5 minutes. Heart rate was at the end of stress phase was 82 bpm and a blood pressure of 183/78 mmHg. The EKG at the peak infusion revealed since normal sinus rhythm with no significant ST-T wave changes. Sestamibi was injected 20 seconds after the Lexiscan infusion. Blood pressure at the end of recovery phase was 181/72 mmHg with a heart rate of 89 bpm. Conclusion: 1. Normal EKG response to Lexiscan infusion 2. No Lexiscan induced chest pain or cardiac arrhythmia. 3. Normal blood pressure and heart rate response. 4. Sestamibi/sestamibi perfusion scan pending; see separate report. Electronically Signed On 10-14-2021 7:42:22 CDT by Dong Pitt M.D. [id number]
[2021-09-23] MEDS: atorvastatin 40 mg Tablet PO (21:23)
[2021-09-24] VITALS (41 sets, daily range): BP systolic 104–181; BP diastolic 45–79; PULSE 58–72; RESP 0–23; TEMP 36.6–36.7; O2SAT 90–97
[2021-09-24] MEDS: heparin 5,000 unit/mL INJ 1 mL 5000 UNIT SUBCUT (03:38)
[2021-09-24 04:06] LABS: Basophils % 0.5 %; Eosinophils # 0.3 10^3/uL (0.0-0.8); Eosinophils % 8.4 %; Hematocrit 32.7 % (37.0-47.0); Hemoglobin 10.2 g/dL (11.5-15.3); Lymphocytes # 0.7 10^3/uL (0.8-4.8); Lymphocytes % 17.6 %; Mean Corpuscular HGB Conc 31.2 g/dL (30.0-36.0); Mean Corpuscular Hemoglobin 31.8 pg (28.0-34.0); Mean Corpuscular Volume 101.9 fl (81-99); Mean Platelet Volume 11.8 fL (7.4-10.4); Monocytes # 0.3 10^3/uL (0.2-0.9); Monocytes % 7.7 %; Neutrophils # 2.57 10^3/uL (1.8-7.7); Neutrophils % 65.5 %; Nucleated Red Blood Cells % 0 %; Platelet Count 103 10^3/cmm (130-400); Red Blood Count 3.21 10^6/uL (4.1-5.3); Red Cell Distribution Width 13.9 % (12.1-15.1); White Blood Count 3.9 10^3/uL (4.0-10.0)
[2021-09-24] MEDS: levothyroxine 150 mcg Tablet PO (04:30)
[2021-09-24] MEDS: morphine 4 mg/mL SDV 1 mL 2 MG IVP ×3 (04:30→22:26)
[2021-09-24] MEDS: FUROsemide 40 mg Tablet PO (04:30)
[2021-09-24 04:31] LABS: Albumin Level 3.2 g/dL (3.5-5.2); Blood Urea Nitrogen 26 mg/dL (6-20); Calcium 8.9 mg/dL (8.5-10.5); Carbon Dioxide 28 mmol/L (22-29); Chloride 100 mmol/L (98-107); Glomerular Filtration Rate 8.2 mL/min (90-130); Glucose 153 mg/dL (65-115); Phosphorus 5.7 mg/dL (2.5-4.5); Sodium 137 mmol/L (136-145)
[2021-09-24 04:33] LABS: Anion Gap 13.6 (5-19); Potassium 4.6 mmol/L (3.5-5.1)
[2021-09-24 06:34] LABS: Glucose Point of Care 113 mg/dL (70-110)
[2021-09-24 07:01] LABS: Glucose Point of Care 128 mg/dL (70-110)
[2021-09-24] MEDS: regadenoson 0.4 Mg/5 ml Syringe IVP (07:52)
[2021-09-24] MEDS: ondansetron 2 mg/ML SDV 2 mL 4 MG IVP (07:52)
--- NOTE | 2021-09-24 08:53 | PC.OT ---
OT tx attempted at this time. Pt has just returned from stress test and preparing to go to dialysis. OT tx to be held today and attempted again tomorrow.
[2021-09-24] MEDS: cloNIDine 0.1 mg Tablet PO ×2 (09:24→17:44)
[2021-09-24] MEDS: aspirin 81 mg Chew Tablet PO (09:25)
[2021-09-24] MEDS: pantoprazole DR 40 mg Tablet PO (09:25)
[2021-09-24] MEDS: hyDRALAzine 25 mg Tablet PO ×3 (09:25→19:11)
[2021-09-24] MEDS: cholecalciferol (vitamin D3) 1,000 unit Tablet 1000 UNIT PO (09:25)
[2021-09-24] MEDS: escitalopram 10 mg Tablet 20 MG PO (09:25)
[2021-09-24] MEDS: carvedilol 3.125 mg Tablet PO ×2 (09:25→17:44)
[2021-09-24] MEDS: clopidogrel 75 mg Tablet PO (09:25)
[2021-09-24] MEDS: amlodipine 10 mg Tablet PO (09:27)
[2021-09-24] MEDS: ketorolac 0.5% Op 5 mL Btl 1 DROP EYE-BOTH ×4 (09:29→19:10)
--- NOTE | 2021-09-24 10:22 | PM.PN ---
Subjective Subjective: Ms. Herzog is seen and examined on dialysis today. She just came back from her stress test and feels somewhat nauseated but otherwise he is comfortable. No shortness of breath, palpitations, chest pain. Blood pressure appears well controlled now 142/73. No extremity edema and the examination is otherwise unremarkable. Dialysis parameters are reviewed in detail. Medications: Medication Review Details: Generic Name Dose Route Start Last Admin Trade Name Laurence PRN Reason Stop Dose Admin Amlodipine Besylat e 10 mg 09/23/21 09:00 09/23/21 07:55 Amlodipine 10 Mg Tablet PO 10 mg DAILY JERSON Administration Aspirin 81 mg 09/23/21 08:00 09/23/21 07:54 Aspirin 81 Mg Ch ew Tablet PO 81 mg DAILY@08 JERSON Administration Atorvastatin Calci um 40 mg 09/22/21 20:00 09/22/21 22:14 Atorvastatin 40 Mg Tablet PO 40 mg DAILY@20 JERSON Administration Clonidine HCl 0.1 mg 09/22/21 18:00 09/23/21 07:54 Clonidine 0.1 Mg Tablet PO 0.1 mg BID JERSON Administration Clopidogrel Bisulf ate 75 mg 09/23/21 09:00 09/23/21 07:54 Clopidogrel 75 M g Tablet PO 75 mg DAILY JERSON Administration Escitalopram Oxala te 20 mg 09/23/21 09:00 09/23/21 07:55 Escitalopram 10 Mg Tablet PO 20 mg DAILY JERSON Administration Furosemide 40 mg 09/23/21 06:00 09/23/21 06:38 Furosemide 40 Mg Tablet PO 40 mg QAM JERSON Administration Heparin Sodium (Po rcine) 5,000 unit 09/22/21 19:00 09/23/21 03:12 Heparin 5,000 Un it/Ml Inj 1 Ml SUBCUT 5,000 unit Q8H JERSON Administration Hydralazine HCl 25 mg 09/23/21 09:00 09/23/21 07:55 Hydralazine 25 M g Tablet PO 25 mg TID JERSON Administration Insulin Glargine 5 unit 09/22/21 20:00 09/23/21 07:56 Insulin Glargine 100 Units/1 Ml SUBCUT 5 unit BID@08,20 JERSON Administration Insulin Human Lisp ro 0 unit 09/22/21 21:00 09/23/21 07:36 Insulin Lispro 1 00 Unit/1 Ml SUBCUT Not Given WM&BEDTIME [facility] Protocol Ketorolac Trometha mine 1 drop 09/22/21 21:00 09/23/21 07:55 Ketorolac 0.5% O p 5 Ml Btl EYE-BOTH 0.5 % QID [facility] Administration Levothyroxine Sodi um 150 mcg 09/23/21 06:00 09/23/21 06:38 Levothyroxine 15 0 Mcg Tablet PO 150 mcg QAM [facility] Administration Morphine Sulfate 2 mg 09/22/21 18:28 09/23/21 03:11 Morphine 4 Mg/Ml Sdv 1 Ml IVP 2 mg Q4H PRN Administration SEVERE PAIN Non-Formulary Medi cation 1 tab 09/23/21 09:00 09/23/21 07:36 B Complex-Vitami n C-Folic Acid [Di alyvite] PO Not Given DAILY [facility] Non-Formulary Medi cation 1 cap 09/22/21 20:00 09/23/21 07:37 [place] 3-Dha-Epa- Fish Oil [Fish Oil ] PO Not Given BID@, [facility] Pantoprazole Sodiu m 40 mg 09/23/21 08:00 09/23/21 07:[address] 40 Mg Tablet PO 40 mg DAILY@08 [facility] Administration Vitamin D 1,000 unit 09/23/21 08:00 09/23/21 07:54 Cholecalciferol (Vitamin D3) 1,000 Unit Tablet PO 1,000 unit DAILY@08 [facility] Administration Vitals/I&O/Wt Last Vital Signs Temp 97.9 F 09/24/21 08:50 Pulse 66 09/24/21 08:50 Resp 12 09/24/21 08:50 BP 171/79 09/24/21 09:24 Pulse Ox 97 09/24/21 08:50 09/23/21 09/24/21 09/24/21 22:59 06:59 14:59 Intake Total 360 / 596 Output Total 200 / 200 Balance 160 / 396 Weight last 48 hrs Weight 86.183 kg Weight 86.183 kg Data : 09/24/21 03:49 09/24/21 03:49 A&P Assessment and plan (1) Chronic kidney disease: Status: Acute Plan 1. End-stage renal disease Seen and examined on hemodialysis today Wednesday, Wednesday and Wednesday Dose medication for GFR less than 15 on dialysis 2. Heart disease Chest pain, tends to be recurrent, this presentation is similar to prior with chronic troponin elevation, chronic EKG changes. Defer management to cardiology. Stress done, results pending 3. Hemodynamics. Blood pressure and pulse remains stable at this time. 4. Chronic ESRD issues To be handled as an outpatient, management as part of standard monthly care. Thank you for consultation Zhou Mcfarland MD Nephrology [phone] Patient seen and examined via telemedicine, with the assistance of the bedside RN > 25 min spent in evaluation and mgmt of patient Attestations Medical Necessity Statement*: Eval for ESRD mgmt Coding Level of Care Code Acute Glost Kiln Operator for Chg Fwd Diagnoses Chronic kidney disease N18.9
--- NOTE | 2021-09-24 10:22 | PM.PN ---
Subjective Subjective: Doing okay. No active complaints. Underwent stress test. He reports are pending. No shortness of breath. No headache. No nausea or vomiting Medications: Medication Review Details: Generic Name Dose Route Start Last Admin Trade Name Laurence PRN Reason Stop Dose Admin Amlodipine Besylat e 10 mg 09/23/21 09:00 09/24/21 09:27 Amlodipine 10 Mg Tablet PO 10 mg DAILY JERSON Administration Aspirin 81 mg 09/23/21 08:00 09/24/21 09:25 Aspirin 81 Mg Ch ew Tablet PO 81 mg DAILY@08 JERSON Administration Atorvastatin Calci um 40 mg 09/22/21 20:00 09/23/21 21:23 Atorvastatin 40 Mg Tablet PO 40 mg DAILY@20 JEROSN Administration Carvedilol 3.125 mg 09/23/21 18:00 09/24/21 09:25 Carvedilol 3.125 Mg Tablet PO 3.125 mg BID JRESON Administration Clonidine HCl 0.1 mg 09/22/21 18:00 09/24/21 09:24 Clonidine 0.1 Mg Tablet PO 0.1 mg BID JERSON Administration Clopidogrel Bisulf ate 75 mg 09/23/21 09:00 09/24/21 09:25 Clopidogrel 75 M g Tablet PO 75 mg DAILY JERSON Administration Escitalopram Oxala te 20 mg 09/23/21 09:00 09/24/21 09:25 Escitalopram 10 Mg Tablet PO 20 mg DAILY JERSON Administration Furosemide 40 mg 09/23/21 06:00 09/24/21 04:30 Furosemide 40 Mg Tablet PO 40 mg QAM JERSON Administration Hydralazine HCl 25 mg 09/23/21 09:00 09/24/21 09:25 Hydralazine 25 M g Tablet PO 25 mg TID [facility] Administration Insulin Glargine 5 unit 09/22/21 20:00 09/24/21 09:26 Insulin Glargine 100 Units/1 Ml SUBCUT Not Given BID@ [facility] Insulin Human Lisp ro 0 unit 09/22/21 21:00 09/24/21 09:26 Insulin Lispro 1 00 Unit/1 Ml SUBCUT Not Given WM&BEDTIME [facility] Protocol Ketorolac Trometha mine 1 drop 09/22/21 21:00 09/24/21 09:29 Ketorolac 0.5% O p 5 Ml Btl EYE-BOTH 1 drop QID JERSON Administration Levothyroxine Sodi um 150 mcg 09/23/21 06:00 09/24/21 04:30 Levothyroxine 15 0 Mcg Tablet PO 150 mcg QAM [facility] Administration Morphine Sulfate 2 mg 09/22/21 18:28 09/24/21 04:30 Morphine 4 Mg/Ml Sdv 1 Ml IVP 2 mg Q4H PRN Administration SEVERE PAIN Non-Formulary Medi cation 1 tab 09/23/21 09:00 09/24/21 09:27 B Complex-Vitami n C-Folic Acid [Di alyvite] PO Not Given DAILY [facility] Non-Formulary Medi cation 1 cap 09/22/21 20:00 09/24/21 09:27 [place] 3-Dha-Epa- Fish Oil [Fish Oil ] PO Not Given BID@, [facility] Ondansetron HCl 4 mg 09/24/21 06:58 09/24/21 07:52 Ondansetron 2 Mg /Ml Sdv 2 Ml IVP 4 mg Q2M PRN Administration NAUSEA Pantoprazole Sodiu m 40 mg 09/23/21 08:00 09/24/21 09:[address] 40 Mg Tablet PO 40 mg DAILY@08 [facility] Administration Vitamin D 1,000 unit 09/23/21 08:00 09/24/21 09:25 Cholecalciferol (Vitamin D3) 1,000 Unit Tablet PO 1,000 unit DAILY@08 [facility] Administration Vitals/I&O/Wt Last Vital Signs Temp 97.9 F 09/24/21 08:50 Pulse 66 09/24/21 08:50 Resp 12 09/24/21 08:50 BP 171/79 09/24/21 09:24 Pulse Ox 97 09/24/21 08:50 09/23/21 09/24/21 09/24/21 22:59 06:59 14:59 Intake Total 360 / 596 Output Total 200 / 200 Balance 160 / 396 Weight last 48 hrs Weight 86.183 kg Weight 86.183 kg Physical Exam Narrative: The patient is currently awake alert oriented. No acute distress. Mood and affect are appropriate. Responses are adequate. Skin is warm and dry. Moist mucous membranes. Neck no JVD. Supple. Lungs decreased breath sounds bibasilarly. No respiratory distress currently with supplemental oxygen. No significant wheezes or crackles. Heart S1, S2, regular Abdomen is soft, nontender, bowel sounds are present Extremities AKA. No peripheral cyanosis. No calf tenderness. Eyes. Left side is red. She had recent cataract surgery on that side. Extraocular muscles are intact. No focal deficits. No facial asymmetry. Normal speech. Data : 09/24/21 03:49 09/24/21 03:49 A&P Assessment and plan (1) Chest pain: Status: Acute (2) Shortness of breath: Status: Acute (3) Chronic diastolic CHF (congestive heart failure): Status: Chronic (4) Accelerated hypertension: Status: Acute (5) Hypoxemia: Status: Acute (6) Fluid overload: Status: Acute Plan Rizwana Herzog is a 56 year old female with past medical history of hypertension, diabetes, end-stage renal disease, on dialysis, gastroparesis, AKA, congestive heart failure with normal EF, peripheral arterial disease, coronary artery disease, previous cardiac catheterization in 2019 with placement of drug-eluting stent, Dr. Duarte's pt who is presenting to emergency room with complaints of chest pain. Chest pain associated with abnormal troponin (chronically elevated) and severely elevated BNP. No ST elevation. The patient had similar presentation to ER recently. Currently resolved. We will continue aspirin, Plavix, statin. Status post stress test today. Reports are pending. Appreciate Dr. Pitt's input. Hypertensive urgency. Medications are adjusted. It is better today. Continue current treatment for now. Hypoxia and pulmonary edema. BNP was severely elevated. Probably was related to fluid overload. Currently she feels better after dialysis treatment yesterday. No pneumonia. Procalcitonin level was normal. No evidence of infection. Diabetes. Will resume home medications and cover her with insulin sliding scale. End-stage renal disease. Dialysis treatments per nephrology. Anemia of chronic disease. Stable. Continue monitoring. CODE STATUS. She wants to be full code. DVT prophylaxis. Holding heparin due to thrombocytopenia. Thrombocytopenia. Mild. Will monitor. The plan of care was discussed with the patient. She verbalized understanding and agreement. Attestations Medical Necessity Statement*: Developed new thrombocytopenia. We will need to hold her to recheck in the morning. Possible discharge home tomorrow. Coding Level of Care Code Acute Entry Level Java Developer for g Fwd Diagnoses Chest pain R07.9 Shortness of breath R06.02 Chronic diastolic CHF (congestive heart failure) I50.32 Accelerated hypertension I10 Hypoxemia R09.02 Fluid overload E87.70
--- NOTE | 2021-09-24 10:36 | P.PN_ITS ---
Subjective Subjective: Patient is chest pain free. Stress test performed today Vitals/I&O/Wt Last Vital Signs Temp 97.9 F 09/24/21 08:50 Pulse 68 09/24/21 10:34 Resp 12 09/24/21 08:50 BP 171/79 09/24/21 09:24 Pulse Ox 93 09/24/21 10:34 09/23/21 09/24/21 09/24/21 22:59 06:59 14:59 Intake Total 360 / 596 Output Total 200 / 200 Balance 160 / 396 Weight last 48 hrs Weight 190 lb Weight 190 lb Physical Exam Narrative: GENERAL: Patient is alert, awake and oriented x3. [] NECK: No jugular vein distension. [] HEENT: No cyanosis. No icterus. No pallor. [] HEART: Regular S1 and S2. No murmur, rub or gallop. [] LUNGS: Clear to auscultate bilaterally. [] ABDOMEN: Soft, nontender and nondistended. Positive bowel sounds. No guarding, rebound or tenderness. [] CENTRAL NERVOUS SYSTEM: Grossly nonfocal. [] EXTREMITIES: Lower extremity with 1+ edema Data : 09/25/21 03:00 09/25/21 03:00 A&P Assessment and plan (1) CAD (coronary artery disease): Status: Chronic Qualifiers: Coronary Disease-Associated Artery/Lesion type: [place] artery [place] vs. transplanted heart: [place] heart Associated angina: with stable angina Qualified Code(s): I25.118 - Atherosclerotic heart disease of [place] coronary artery with other forms of angina pectoris (2) PAD (peripheral artery disease): Status: Chronic (3) Mixed dyslipidemia: Status: Chronic (4) Diabetes mellitus, with long-term current use of insulin: Status: Chronic Qualifiers: Diabetes mellitus complication detail: with other circulatory complications Diabetes mellitus complication status: with circulatory complication Diabetes mellitus type: type 2 Qualified Code(s): E11.59 - Type 2 diabetes mellitus with other circulatory complications; Z79.4 - USP (current) use of insulin (5) Hyperlipidemia: Status: Chronic Qualifiers: Hyperlipidemia type: unspecified Qualified Code(s): E78.5 - Hyperlipidemia, unspecified (6) HTN (hypertension): Status: Chronic Plan Patient has been having chest pain symptoms, episodes associated with severely elevated blood pressure readings. Continue amlodipine, coreg and hydralazine and uptitrate as needed. Stress test showed prior infarct with small area of emily-infarct ischemia. Medical therapy for now Low-sodium diet advised. Thank you for involving us with care of this patient. We will continue to bryan chavis. Please call with questions. Attestations Medical Necessity Statement*: Care expected to cross 2 midnights. Coding Level of Care Code Acute Facilities Maintenance Assistant for Yarelig Sampson Diagnoses CAD (coronary artery disease) I25.118 Coronary Disease-Associated Artery/Lesion type: [place] artery [place] vs. transplanted heart: [place] heart Associated angina: with stable angina PAD (peripheral artery disease) I73.9 Mixed dyslipidemia E78.2 Diabetes mellitus, with long-term current use of insulin E11.59; Z79.4 Diabetes mellitus complication detail: with other circulatory complications Diabetes mellitus complication status: with circulatory complication Diabetes mellitus type: type 2 Hyperlipidemia E78.5 Hyperlipidemia type: unspecified HTN (hypertension) I10
[2021-09-24] MEDS: heparin, porcine 1,000 unit/mL INJ 10 mL 10000 UNIT HE (10:39)
--- NOTE | 2021-09-24 10:50 | PC.NURSE ---
pt had cardiac stress test this morning.required zofran for nausea during test.pt to dialysis via bed at 1015
[2021-09-24 12:07] LABS: Glucose Point of Care 150 mg/dL (70-110)
[2021-09-24] MEDS: insulin lispro 100 unit/1 mL SUBCUT ×2 (12:39→19:53)
--- NOTE | 2021-09-24 14:20 | PC.NURSE ---
return from dialysis at 1340.1800 cc removed
--- NOTE | 2021-09-24 14:33 | PC.HD ---
Pt has a fistula that has recently been able to be used, but not used today as 17ga needles and lidocaine cream not available, catheter working well though lines reversed d/t sluggish arterial draw. Dr Mcfarland aware of transient hypotension and fluid removal goal not met.
--- NOTE | 2021-09-24 14:43 | PC.HD ---
Pt not used today as 17ga needles and lidocaine cream not available, catheter working well though lines reversed d/t sluggish arterial draw. Dr Mcfarland aware of transient hypotension and fluid removal goal not met.
[2021-09-24 16:09] LABS: Glucose Point of Care 119 mg/dL (70-110)
--- NOTE | 2021-09-24 17:41 | PC.NURSE ---
Nurse and nursing home director at bedside.
[2021-09-24] MEDS: atorvastatin 40 mg Tablet PO (19:11)
[2021-09-24 19:37] LABS: Glucose Point of Care 291 mg/dL (70-110)
[2021-09-24] MEDS: insulin glargine 100 units/1 mL 5 UNIT SUBCUT (19:53)
--- NOTE | 2021-09-24 20:51 | NMCV_ITS ---
NM sheng perf SPECT r/s* [id number] Rizwana Herzog Age: 56 Gender: F : 1965 Exam Date: 09/24/2021 07:07 Ordering Phys: Dong Pitt M.D ([email or web address]) Technologist: ANIYAH Lee Exam Location: [facility] Indications: CHEST PAIN STRESS TEST [facility] IMAGE PROTOCOL Rest/Stress 1 Lexiscan Day Radiopharmaceutical Dose (mCi) Administration Site Administered by Rest: Tc-99m 10.9 IV ANIYAH Christie Sestamibi Stress:Tc-99m 32.9 IV ANIYAH Lee Sestamiashley Rest: 24-Sep-2021 60 Discovery 630 Stress: 24-Sep-2021 30 Discovery 630 0.4mg Lexiscan. Supine position only as patient was unable to lay prone. SPECT RESULTS Technical Quality: Excellent Raw Data Analysis: Normal Image Corrections: No attenuation or motion correction applied Summed Stress Score: 19 Summed Rest Score: 14 Summed Difference Score: 5 PERFUSION FINDINGS There is a large sized, mostly fixed perfusion defect in the apical, apical anterior, inferolateral and anterolateral dixon. This is consistent with large sized prior infarct with small area of emily-infarct ischemia in apical anterior wall. FUNCTIONAL RESULTS (calculated via Gated SPECT) Stress Image LV EF (%): 61 Stress EDV (mL):142 TID: 1.06 Stress ESV (mL):55 FUNCTIONAL FINDINGS: LV systolic function is normal IMPRESSIONS 1. Abnormal myocardial perfusion imaging with large sized prior infarct with small area of emily-infarct ischemia in LAD and left circumflex artery territory 2. LV systolic function is normal Dong Pitt MD (Electronically Signed) Final Date: 24 September 2021 10:35 S
[2021-09-25] VITALS (35 sets, daily range): BP systolic 112–142; BP diastolic 49–61; PULSE 55–132; RESP 0–19; TEMP 36.7; O2SAT 85–98
[2021-09-25 02:42] LABS: Glucose Point of Care 57 mg/dL (70-110)
[2021-09-25] MEDS: morphine 4 mg/mL SDV 1 mL 2 MG IVP ×3 (02:57→22:18)
[2021-09-25 03:12] LABS: Basophils % 0.6 %; Eosinophils # 0.2 10^3/uL (0.0-0.8); Eosinophils % 4.2 %; Lymphocytes # 0.6 10^3/uL (0.8-4.8); Lymphocytes % 11.4 %; Mean Corpuscular HGB Conc 31.4 g/dL (30.0-36.0); Mean Corpuscular Volume 101.7 fl (81-99); Mean Platelet Volume 11.3 fL (7.4-10.4); Monocytes # 0.4 10^3/uL (0.2-0.9); Neutrophils # 3.77 10^3/uL (1.8-7.7); Neutrophils % 75.4 %; Nucleated Red Blood Cells % 0 %; Platelet Count 111 10^3/cmm (130-400); Red Blood Count 3.44 10^6/uL (4.1-5.3); Red Cell Distribution Width 13.8 % (12.1-15.1)
[2021-09-25 03:19] LABS: Glucose Point of Care 89 mg/dL (70-110)
--- NOTE | 2021-09-25 03:20 | PC.NURSE ---
Patient stated to nurse that she felt like her blood sugar was low. When check, glucose was 57. Patient provided with snacks. When rechecked, it was 89. Will continue to monitor.
[2021-09-25 03:31] LABS: Albumin Level 3.2 g/dL (3.5-5.2); Blood Urea Nitrogen 20 mg/dL (6-20); Calcium 9.1 mg/dL (8.5-10.5); Carbon Dioxide 27 mmol/L (22-29); Chloride 101 mmol/L (98-107); Glomerular Filtration Rate 10.9 mL/min (90-130); Glucose 78 mg/dL (65-115); Phosphorus 5.5 mg/dL (2.5-4.5); Sodium 138 mmol/L (136-145)
[2021-09-25 03:32] LABS: Anion Gap 14.5 (5-19); Potassium 4.5 mmol/L (3.5-5.1)
[2021-09-25 06:18] LABS: Glucose Point of Care 128 mg/dL (70-110)
[2021-09-25] MEDS: FUROsemide 40 mg Tablet PO (06:19)
[2021-09-25] MEDS: levothyroxine 150 mcg Tablet PO (06:19)
[2021-09-25] MEDS: aspirin 81 mg Chew Tablet PO (07:59)
[2021-09-25] MEDS: cholecalciferol (vitamin D3) 1,000 unit Tablet 1000 UNIT PO (07:59)
[2021-09-25] MEDS: amlodipine 10 mg Tablet PO (08:00)
[2021-09-25] MEDS: clopidogrel 75 mg Tablet PO (08:00)
[2021-09-25] MEDS: pantoprazole DR 40 mg Tablet PO (08:00)
[2021-09-25] MEDS: carvedilol 3.125 mg Tablet PO ×2 (08:00→18:04)
[2021-09-25] MEDS: insulin glargine 100 units/1 mL 5 UNIT SUBCUT ×2 (08:00→20:59)
[2021-09-25] MEDS: escitalopram 10 mg Tablet 20 MG PO (08:01)
[2021-09-25] MEDS: ketorolac 0.5% Op 5 mL Btl 1 DROP EYE-BOTH ×4 (08:03→20:59)
--- NOTE | 2021-09-25 09:00 | PC.SOCIAL ---
Pg 2 IMM Explained to pt Pg 2 IMM. No questions voiced. Provided pt a copy. Initialed, dated, & timed a copy & placed in chart.
--- NOTE | 2021-09-25 10:29 | P.PN_ITS ---
Subjective Subjective: The patient reports feeling much better today. Denies chest pain or shortness of breath. No headache. No dizziness or lightheadedness. She is still a little bit apprehensive due to concerns of blood pressure spikes and episodes of hypotension. Medications: Medication Review Details: Generic Name Dose Route Start Last Admin Trade Name Laurence PRN Reason Stop Dose Admin Amlodipine Besylat e 10 mg 09/23/21 09:00 09/25/21 08:00 Amlodipine 10 Mg Tablet PO 10 mg DAILY JERSON Administration Aspirin 81 mg 09/23/21 08:00 09/25/21 07:59 Aspirin 81 Mg Ch ew Tablet PO 81 mg DAILY@08 JERSON Administration Atorvastatin Calci um 40 mg 09/22/21 20:00 09/24/21 19:11 Atorvastatin 40 Mg Tablet PO 40 mg DAILY@20 JERSON Administration Carvedilol 3.125 mg 09/23/21 18:00 09/25/21 08:00 Carvedilol 3.125 Mg Tablet PO 3.125 mg BID JERSON Administration Clonidine HCl 0.1 mg 09/22/21 18:00 09/24/21 17:44 Clonidine 0.1 Mg Tablet PO 0.1 mg BID JERSON Administration Clopidogrel Bisulf ate 75 mg 09/23/21 09:00 09/25/21 08:00 Clopidogrel 75 M g Tablet PO 75 mg DAILY JERSON Administration Escitalopram Oxala te 20 mg 09/23/21 09:00 09/25/21 08:01 Escitalopram 10 Mg Tablet PO 20 mg DAILY JERSON Administration Furosemide 40 mg 09/23/21 06:00 09/25/21 06:19 Furosemide 40 Mg Tablet PO 40 mg QAM JERSON Administration Hydralazine HCl 25 mg 09/23/21 09:00 09/24/21 19:11 Hydralazine 25 M g Tablet PO 25 mg TID JERSON Administration Insulin Glargine 5 unit 09/22/21 20:00 09/25/21 08:00 Insulin Glargine 100 Units/1 Ml SUBCUT 5 unit BID@, JERSON Administration Insulin Human Lisp ro 0 unit 09/22/21 21:00 09/25/21 06:20 Insulin Lispro 1 00 Unit/1 Ml SUBCUT Not Given WM&BEDTIME [facility] Protocol Ketorolac Trometha mine 1 drop 09/22/21 21:00 09/25/21 08:03 Ketorolac 0.5% O p 5 Ml Btl EYE-BOTH 1 drop QID [facility] Administration Levothyroxine Sodi um 150 mcg 09/23/21 06:00 09/25/21 06:19 Levothyroxine 15 0 Mcg Tablet PO 150 mcg QAM [facility] Administration Morphine Sulfate 2 mg 09/22/21 18:28 09/25/21 02:57 Morphine 4 Mg/Ml Sdv 1 Ml IVP 2 mg Q4H PRN Administration SEVERE PAIN Non-Formulary Medi cation 1 tab 09/23/21 09:00 09/25/21 08:11 B Complex-Vitami n C-Folic Acid [Di alyvite] PO Not Given DAILY [facility] Non-Formulary Medi cation 1 cap 09/22/21 20:00 09/25/21 08:11 [place] 3-Dha-Epa- Fish Oil [Fish Oil ] PO Not Given BID@, [facility] Ondansetron HCl 4 mg 09/24/21 06:58 09/24/21 07:52 Ondansetron 2 Mg /Ml Sdv 2 Ml IVP 4 mg Q2M PRN Administration NAUSEA Pantoprazole Sodiu m 40 mg 09/23/21 08:00 09/25/21 08:[address] 40 Mg Tablet PO 40 mg DAILY@08 [facility] Administration Vitamin D 1,000 unit 09/23/21 08:00 09/25/21 07:59 Cholecalciferol (Vitamin D3) 1,000 Unit Tablet PO 1,000 unit DAILY@08 [facility] Administration Vitals/I&O/Wt Last Vital Signs Temp 98.0 F 09/25/21 07:16 Pulse 60 09/25/21 08:14 Resp 15 09/25/21 07:16 BP 124/59 09/25/21 09:52 Pulse Ox 96 09/25/21 07:16 09/24/21 09/25/21 09/25/21 22:59 06:59 14:59 Intake Total 120 / 120 Output Total 100 / 100 Balance Weight last 48 hrs Weight 93.2 kg Weight 92.8 kg Physical Exam Narrative: The patient is currently awake alert oriented. No acute distress. Mood and affect are appropriate. Responses are adequate. Skin is warm and dry. Moist mucous membranes. Neck no JVD. Supple. Lungs are clear bilateral. Heart S1, S2, regular Abdomen is soft, nontender, bowel sounds are present Extremities AKA. No peripheral cyanosis. No calf tenderness. Eyes. Left side is red. She had recent cataract surgery on that side. Extraocular muscles are intact. No focal deficits. No facial asymmetry. Normal speech. Data : 09/25/21 03:00 09/25/21 03:00 A&P Assessment and plan (1) Chest pain: Status: Acute (2) Shortness of breath: Status: Acute (3) Chronic diastolic CHF (congestive heart failure): Status: Chronic (4) Accelerated hypertension: Status: Acute (5) Hypoxemia: Status: Acute (6) Fluid overload: Status: Acute Plan Rizwana Herzog is a 56 year old female with past medical history of hype rtension, diabetes, end-stage renal disease, on dialysis, gastroparesis, AKA, congestive heart failure with normal EF, peripheral arterial disease, coronary artery disease, previous cardiac catheterization in 2019 with placement of drug- eluting stent, Dr. Duarte's pt who is presenting to emergency room with complaints of chest pain. Chest pain associated with abnormal troponin (chronically elevated) and severely elevated BNP. No ST elevation. The patient had similar presentation to ER recently. Currently resolved. We will continue aspirin, Plavix, statin. Status post stress test. Findings were discussed with Dr. Pitt. Most likely related to prior TX and scarring. Continue conservative management and close outpatient follow-up Appreciate Dr. Pitt's input. Hypertensive urgency. Medications are adjusted. Blood pressure is better controlled. Continue current treatment for now. Discussed with her outpatient management. I asked her to take her blood pressure medications separately with close monitoring of the blood pressure. I advised her to hold hydralazine if she feels that the blood pressure is on the lower side. Further adjustments might be necessary by the primary care team after discharge. Hypoxia and pulmonary edema. BNP was severely elevated. Probably was related to fluid overload. Currently she feels better after dialysis treatment yesterday. We will assess for home O2 use No pneumonia. Procalcitonin level was normal. No evidence of infection. Diabetes. Will resume home medications and cover her with insulin sliding scale. End-stage renal disease. Dialysis treatments per nephrology. Anemia of chronic disease. Stable. Continue monitoring. CODE STATUS. She wants to be full code. DVT prophylaxis. Holding heparin due to thrombocytopenia. Thrombocytopenia. Mild. Will monitor. The plan of care was discussed with the patient. She verbalized understanding and agreement. Attestations Medical Necessity Statement*: Most likely will be able to discharge the patient home tomorrow. We will assess her for home O2 today. We will continue further adjustments of the blood pressure medications to prepare her better for outpatient management and prevent future hospital visits Coding Level of Care Code Acute Industrial Hygienist for Maris Soriad Diagnoses Chest pain R07.9 Shortness of breath R06.02 Chronic diastolic CHF (congestive heart failure) I50.32 Accelerated hypertension I10 Hypoxemia R09.02 Fluid overload E87.70
--- NOTE | 2021-09-25 10:58 | P.PN_ITS ---
Subjective Subjective: No issues Ms. Herzog today. She feels well, pain-free. No new issues. No extremity edema, shortness of breath, no chest pain. Medications: Medication Review Details: Generic Name Dose Route Start Last Admin Trade Name Laurence PRN Reason Stop Dose Admin Amlodipine Besylat e 10 mg 09/23/21 09:00 09/25/21 08:00 Amlodipine 10 Mg Tablet PO 10 mg DAILY JERSON Administration Aspirin 81 mg 09/23/21 08:00 09/25/21 07:59 Aspirin 81 Mg Ch ew Tablet PO 81 mg DAILY@08 JERSON Administration Atorvastatin Calci um 40 mg 09/22/21 20:00 09/24/21 19:11 Atorvastatin 40 Mg Tablet PO 40 mg DAILY@20 JERSON Administration Carvedilol 3.125 mg 09/23/21 18:00 09/25/21 08:00 Carvedilol 3.125 Mg Tablet PO 3.125 mg BID JERSON Administration Clonidine HCl 0.1 mg 09/22/21 18:00 09/24/21 17:44 Clonidine 0.1 Mg Tablet PO 0.1 mg BID JERSON Administration Clopidogrel Bisulf ate 75 mg 09/23/21 09:00 09/25/21 08:00 Clopidogrel 75 M g Tablet PO 75 mg DAILY JERSON Administration Escitalopram Oxala te 20 mg 09/23/21 09:00 09/25/21 08:01 Escitalopram 10 Mg Tablet PO 20 mg DAILY JERSON Administration Furosemide 40 mg 09/23/21 06:00 09/25/21 06:19 Furosemide 40 Mg Tablet PO 40 mg QAM JERSON Administration Hydralazine HCl 25 mg 09/23/21 09:00 09/24/21 19:11 Hydralazine 25 M g Tablet PO 25 mg TID JERSON Administration Insulin Glargine 5 unit 09/22/21 20:00 09/25/21 08:00 Insulin Glargine 100 Units/1 Ml SUBCUT 5 unit BID@08,20 [facility] Administration Insulin Human Lisp ro 0 unit 09/22/21 21:00 09/25/21 06:20 Insulin Lispro 1 00 Unit/1 Ml SUBCUT Not Given WM&BEDTIME [facility] Protocol Ketorolac Trometha mine 1 drop 09/22/21 21:00 09/25/21 08:03 Ketorolac 0.5% O p 5 Ml Btl EYE-BOTH 1 drop QID JERSON Administration Levothyroxine Sodi um 150 mcg 09/23/21 06:00 09/25/21 06:19 Levothyroxine 15 0 Mcg Tablet PO 150 mcg QAM [facility] Administration Morphine Sulfate 2 mg 09/22/21 18:28 09/25/21 02:57 Morphine 4 Mg/Ml Sdv 1 Ml IVP 2 mg Q4H PRN Administration SEVERE PAIN Non-Formulary Medi cation 1 tab 09/23/21 09:00 09/25/21 08:11 B Complex-Vitami n C-Folic Acid [Di alyvite] PO Not Given DAILY [facility] Non-Formulary Medi cation 1 cap 09/22/21 20:00 09/25/21 08:11 [place] 3-Dha-Epa- Fish Oil [Fish Oil ] PO Not Given BID@ [facility] Ondansetron HCl 4 mg 09/24/21 06:58 09/24/21 07:52 Ondansetron 2 Mg /Ml Sdv 2 Ml IVP 4 mg Q2M PRN Administration NAUSEA Pantoprazole Sodiu m 40 mg 09/23/21 08:00 09/25/21 08:[address] 40 Mg Tablet PO 40 mg DAILY@08 [facility] Administration Vitamin D 1,000 unit 09/23/21 08:00 09/25/21 07:59 Cholecalciferol (Vitamin D3) 1,000 Unit Tablet PO 1,000 unit DAILY@08 [facility] Administration Vitals/I&O/Wt Last Vital Signs Temp 98.0 F 09/25/21 07:16 Pulse 60 09/25/21 08:14 Resp 14 09/25/21 10:40 BP 124/59 09/25/21 09:52 Pulse Ox 96 09/25/21 07:16 09/24/21 09/25/21 09/25/21 22:59 06:59 14:59 Intake Total 120 / 120 Output Total 100 / 100 Balance Weight last 48 hrs Weight 93.2 kg Weight 92.8 kg Data : 09/25/21 03:00 09/25/21 03:00 A&P Assessment and plan (1) Chronic kidney disease: Status: Acute Plan 1. End-stage renal disease Plan on HD tomorrow if she remains in house Wednesday, Wednesday and Wednesday Dose medication for GFR less than 15 on dialysis 2. Heart disease Chest pain, tends to be recurrent, this presentation is similar to prior with chronic troponin elevation, chronic EKG changes. Defer management to cardiology. Stress done, results and cardiology recs pending 3. Hemodynamics. Blood pressure and pulse remains stable at this time. 4. Chronic ESRD issues To be handled as an outpatient, management as part of standard monthly care. Thank you for consultation Zhou Mcfarland MD Nephrology [phone] Patient seen and examined via telemedicine, with the assistance of the bedside RN > 25 min spent in evaluation and mgmt of patient Attestations Medical Necessity Statement*: eval for ESRD Coding Level of Care Code Acute Audio Specialist for Chg Fwd Diagnoses Chronic kidney disease N18.9
--- NOTE | 2021-09-25 11:36 | P.PN_ITS ---
Subjective Subjective: Patient is doing better. Denies chest pain Vitals/I&O/Wt Last Vital Signs Temp 98.0 F 09/25/21 07:16 Pulse 56 L 09/25/21 11:16 Resp 14 09/25/21 10:40 BP 124/59 09/25/21 09:52 Pulse Ox 96 09/25/21 11:16 09/24/21 09/25/21 09/25/21 22:59 06:59 14:59 Intake Total 120 / 120 Output Total 100 / 100 Balance Weight last 48 hrs Weight 205 lb 7.533 oz Weight 204 lb 9.423 oz Physical Exam Narrative: GENERAL: Patient is alert, awake and oriented x3. [] NECK: No jugular vein distension. [] HEENT: No cyanosis. No icterus. No pallor. [] HEART: Regular S1 and S2. No murmur, rub or gallop. [] LUNGS: Clear to auscultate bilaterally. [] ABDOMEN: Soft, nontender and nondistended. Positive bowel sounds. No guarding, rebound or tenderness. [] CENTRAL NERVOUS SYSTEM: Grossly nonfocal. [] EXTREMITIES: Lower extremity with 1+ edema Data : 09/25/21 03:00 09/25/21 03:00 A&P Assessment and plan (1) CAD (coronary artery disease): Status: Chronic Qualifiers: Coronary Disease-Associated Artery/Lesion type: [place] artery [place] vs. transplanted heart: [place] heart Associated angina: with stable angina Qualified Code(s): I25.118 - Atherosclerotic heart disease of [place] coronary artery with other forms of angina pectoris (2) CKD (chronic kidney disease) stage 5, GFR less than 15 ml/min: Status: Chronic (3) Congestive heart failure: Status: Chronic Qualifiers: Heart failure chronicity: acute on chronic Heart failure type: di astolic Qualified Code(s): I50.33 - Acute on chronic diastolic (congestive) heart failure (4) Sleep apnea: Status: Chronic Qualifiers: Sleep apnea type: obstructive Qualified Code(s): G47.33 - Obstructive sleep apnea (adult) (pediatric) (5) HTN (hypertension): Status: Acute Plan With improvement in blood pressure readings, chest pain symptoms have resolved. Continue amlodipine, coreg and hydralazine. Can uptitrate hydralazine further if needed Stress test showed prior infarct with small area of emily-infarct ischemia.? Medical therapy for now Low-sodium diet advised. Thank you for involving us with care of this patient.? We will continue to follow.? Please call with questions Attestations Medical Necessity Statement*: Care expected to cross 2 midnights. Coding Level of Care Code Acute Adobe Flex Developer for Maris Braden Diagnoses CAD (coronary artery disease) I25.118 Coronary Disease-Associated Artery/Lesion type: [place] artery [place] vs. transplanted heart: [place] heart Associated angina: with stable angina CKD (chronic kidney disease) stage 5, GFR less than 15 ml/min N18.5 Congestive heart failure I50.33 Heart failure chronicity: acute on chronic Heart failure type: diastolic Sleep apnea G47.33 Sleep apnea type: obstructive HTN (hypertension) I10
[2021-09-25 12:04] LABS: Glucose Point of Care 191 mg/dL (70-110)
[2021-09-25] MEDS: insulin lispro 100 unit/1 mL SUBCUT (12:15)
[2021-09-25] MEDS: atorvastatin 40 mg Tablet PO (20:59)
[2021-09-25] MEDS: hyDRALAzine 25 mg Tablet PO (20:59)
--- NOTE | 2021-09-25 21:09 | PC.NURSE ---
Pt lying in bed resting and watching tv. Pt resp even and non-labored no distress or sob noted. Pt had no c/o pain or discomfort at the present time. No needs voiced. Call light in reach.
[2021-09-26] VITALS: BP 157/64; PULSE 64; RESP 15; O2SAT 90
[2021-09-26] MEDS: ondansetron 4 MG Tablet 8 MG PO (03:07)
[2021-09-26] MEDS: acetaminophen 325 mg Tablet 650 MG PO (03:07)
[2021-09-26 04:00] VITALS: BP 131/52; PULSE 69; RESP 12; O2SAT 91
[2021-09-26 05:10] VITALS: PULSE 67
[2021-09-26] MEDS: levothyroxine 150 mcg Tablet PO (06:43)
[2021-09-26] MEDS: FUROsemide 40 mg Tablet PO (06:43)
[2021-09-26 08:00] VITALS: BP 139/59; PULSE 63; RESP 18; TEMP 36.8; O2SAT 92
[2021-09-26] MEDS: ondansetron 2 mg/ML SDV 2 mL 4 MG IVP (08:32)
[2021-09-26] MEDS: pantoprazole DR 40 mg Tablet PO (08:40)
[2021-09-26] MEDS: cholecalciferol (vitamin D3) 1,000 unit Tablet 1000 UNIT PO (08:40)
[2021-09-26] MEDS: aspirin 81 mg Chew Tablet PO (08:40)
[2021-09-26] MEDS: escitalopram 10 mg Tablet 20 MG PO (08:41)
[2021-09-26] MEDS: clopidogrel 75 mg Tablet PO (08:41)
[2021-09-26] MEDS: ketorolac 0.5% Op 5 mL Btl 1 DROP EYE-BOTH (08:41)
[2021-09-26] MEDS: insulin glargine 100 units/1 mL 5 UNIT SUBCUT (08:50)
[2021-09-26 09:32] LABS: Glucose Point of Care 117 mg/dL (70-110)
[2021-09-26 09:32] LABS: Glucose Point of Care 131 mg/dL (70-110)
--- NOTE | 2021-09-26 09:48 | PM.DCS ---
Discharge Providers Date of Admission: 09/22/21 18:40 Date of Discharge: September 26, 2021 Attending Provider at Admission: Tacos Schluer Attending Provider at Discharge: Tacos Schuler Primary Care Provider: Jacob Sharp DO Diagnoses at Discharge Discharge Diagnosis (1) CAD (coronary artery disease): Status: Chronic Qualifiers: Coronary Disease-Associated Artery/Lesion type: [place] artery [place] vs. transplanted heart: [place] heart Associated angina: with stable angina Qualified Code(s): I25.118 - Atherosclerotic heart disease of [place] coronary artery with other forms of angina pectoris (2) PAD (peripheral artery disease): Status: Chronic (3) Mixed dyslipidemia: Status: Chronic (4) Diabetes mellitus, with long-term current use of insulin: Status: Chronic Qualifiers: Diabetes mellitus complication detail: with other circulatory complications Diabetes mellitus complication status: with circulatory complication Diabetes mellitus type: type 2 Qualified Code(s): E11.59 - Type 2 diabetes mellitus with other circulatory complications; 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 Rizwana Hrezog is a 56 year old female with past medical history of hypertension, diabetes, end-stage renal disease, on dialysis, gastroparesis, AKA, congestive heart failure with normal EF, chronic hypoxia, on home oxygen, peripheral arterial disease, coronary artery disease, previous cardiac catheterization in 2019 with placement of drug-eluting stent, Dr. Duarte's pt who is presented to emergency room with complaints of chest pain. Chest pain associated with abnormal troponin (chronically elevated) and severely elevated BNP.? No ST elevation.? The patient had similar presentation to ER recently.? Currently resolved.? we will continue aspirin, Plavix, statin.? Status post stress test.? Findings were discussed with Dr. Pitt.? Most likely related to prior CT and scarring.? Continue conservative management and close outpatient follow-up? Appreciate Dr. Pitt's input. Currently the patient is doing very well and is ready and eager to go home. She will have another dialysis treatment prior to discharge today. We will make sure that she is stable and without any new complaints prior to discharge. She is instructed to come back to emergency room if she develops any new or similar complaints. Additional cardiac testing might be necessary. Referral is provided to see box office clerk after discharge. She verbalized understanding and agreement. Hypertensive urgency.? Medications are adjusted.? Blood pressure is better controlled.? Continue current treatment for now.? Discussed with her outpatient management.? I asked her to take her blood pressure medications separately with close monitoring of the blood pressure.? I advised her to hold hydralazine if she feels that the blood pressure is on the lower side.? Further adjustments might be necessary by the primary care team after discharge. Hypoxia and pulmonary edema.? BNP was severely elevated.? Probably was related to fluid overload.? Currently she feels better after dialysis treatments.? She already has home oxygen. No pneumonia.? Procalcitonin level was normal.? No evidence of infection. Diabetes.? Will resume home medications. End-stage renal disease.? Dialysis treatments per nephrology. Appreciate Dr. Mcfarland's input! Anemia of chronic disease.? Stable.? Continue outpatient monitoring. CODE STATUS.? She wants to be full code. Thrombocytopenia.? Mild.? Outpatient monitoring by the primary care team. Physical Exam Narrative: The patient is currently awake alert oriented. No acute distress. Mood and affect are appropriate. Responses are adequate. Skin is warm and dry. Moist mucous membranes. Neck no JVD. Supple. Lungs are clear bilateral. Heart S1, S2, regular Abdomen is soft, nontender, bowel sounds are present Extremities AKA. No peripheral cyanosis. No calf tenderness. Eyes. Left side is red. She had recent cataract surgery on that side. Extraocular muscles are intact. No focal deficits. No facial asymmetry. Normal speech. Discharge Data Studies Completed and Pending Completed Studies During Hospitalization Category Date Time Status Sestamibi Stress Test Request Routine Exams 09/23/21 20:50 Draft XR chest 1V portable [id number] Stat Exams 09/22/21 15:18 Completed NM sheng perf SPECT r/s* [id number] Routine Nuc Med 09/24/21 20:51 Completed Radiology Impressions Chest X-Ray 09/22/21 15:18 IMPRESSION: 1. Infiltrate and atelectasis in the left lower lobe. Pneumonia is not excluded. 2. Mild cardiac enlargement. Laboratory Results WBC 5.0 10^3/uL (4.0-10.0) 09/25/21 03:00 RBC 3.44 10^6/uL (4.1-5.3) L 09/25/21 03:00 Hgb 11.0 g/dL (11.5-15.3) L 09/25/21 03:00 Hct 35.0 % (37.0-47.0) L 09/25/21 03:00 MCV 101.7 fl (81-99) H 09/25/21 03:00 MCH 32.0 pg (28.0-34.0) 09/25/21 03:00 MCHC 31.4 g/dL (30.0-36.0) 09/25/21 03:00 RDW 13.8 % (12.1-15.1) 09/25/21 03:00 Plt Count 111 10^3/cmm (130-400) L 09/25/21 03:00 MPV 11.3 fL (7.4-10.4) H 09/25/21 03:00 Neut % (Auto) 75.4 % 09/25/21 03:00 Lymph % (Auto) 11.4 % 09/25/21 03:00 [place]edar % (Auto) 8.0 % 09/25/21 03:00 Eos % (Auto) 4.2 % 09/25/21 03:00 Baso % (Auto) 0.6 % 09/25/21 03:00 Neut # (Auto) 3.77 10^3/uL (1.8-7.7) 09/25/21 03:00 Lymph # (Auto) 0.6 10^3/uL (0.8-4.8) L 09/25/21 03:00 [place] # (Auto) 0.4 10^3/uL (0.2-0.9) 09/25/21 03:00 Eos # (Auto) 0.2 10^3/uL (0.0-0.8) 09/25/21 03:00 Baso # (Auto) 0.0 10^3/uL (0.0-0.1) 09/25/21 03:00 Nucleated RBC % (auto) 0 % 09/25/21 03:00 Nucleated RBCs # 0.0 /100WBC 09/25/21 03:00 Sodium 138 mmol/L (136-145) 09/25/21 03:00 Potassium 4.5 mmol/L (3.5-5.1) 09/25/21 03:00 Chloride 101 mmol/L (98-107) 09/25/21 03:00 Carbon Dioxide 27 mmol/L (22-29) 09/25/21 03:00 Anion Gap 14.5 (5-19) 09/25/21 03:00 BUN 20 mg/dL (6-20) 09/25/21 03:00 Creatinine 4.2 mg/dL (0.5-0.9) H 09/25/21 03:00 GFR Calculation 10.9 mL/min (90-130) L 09/25/21 03:00 Glucose 78 mg/dL (65-115) 09/25/21 03:00 POC Glucose 131 mg/dL (70-110) H 09/26/21 06:42 Calculated Osmolality 305 mOsm/kg (285-295) H 09/23/21 03:41 Calcium 9.1 mg/dL (8.5-10.5) 09/25/21 03:00 Phosphorus 5.5 mg/dL (2.5-4.5) H 09/25/21 03:00 Magnesium 2.1 mg/dL (1.7-2.3) 09/23/21 03:41 Magnesium Cancelled 09/23/21 03:41 Total Bilirubin 0.6 mg/dL (0.15-1.2) 09/22/21 15:30 AST 19 U/L (0-32) 09/22/21 15:30 ALT 16 U/L (0-33) 09/22/21 15:30 Alkaline Phosphatase 141 IU/L (35-105) H 09/22/21 15:30 Troponin T Baseline 84 ng/L (0-10) H 09/22/21 15:30 Troponin T 120 Minute 91.05 ng/L (0-10) H 09/22/21 17:34 Delta Troponin T 7.05 ABS# (0-10) 09/22/21 17:34 Troponin T Hi Sens 6Hr 84.21 ng/L (0-10) H 09/22/21 21:49 Troponin T Hi Sens 6Hr Delta 0.21 ng/L (0-12) 09/22/21 21:49 NT-Pro-B Natriuret Pep 67709 pg/mL (0-125) H 09/23/21 03:41 NT-Pro-B Natriuret Pep Cancelled 09/23/21 03:41 Total Protein 6.3 g/dL (6.6-8.7) L 09/22/21 15:30 Albumin 3.2 g/dL (3.5-5.2) L 09/25/21 03:00 Globulin 2.3 g/dL (1.3-4.6) 09/22/21 15:30 Triglycerides 58 mg/dL (0-150) 09/23/21 03:41 Triglycerides Cancelled 09/23/21 03:41 Cholesterol 113 mg/dL (0-200) 09/23/21 03:41 Cholesterol Cancelled 09/23/21 03:41 LDL Cholesterol, Calc 61 mg/dL (50-129) 09/23/21 03:41 LDL Cholesterol, Calc Cancelled 09/23/21 03:41 HDL Cholesterol 40 mg/dL (60-100) L 09/23/21 03:41 HDL Cholesterol Cancelled 09/23/21 03:41 LDL/HDL Ratio 1.53 RATIO (0.00-3.22) 09/23/21 03:41 LDL/HDL Ratio Cancelled 09/23/21 03:41 Cholesterol/HDL Ratio 2.83 mg/dL (0.0-4.40) 09/23/21 03:41 Cholesterol/HDL Ratio Cancelled 09/23/21 03:41 Procalcitonin 0.18 ng/mL (0-0.5) 09/22/21 15:30 Vitals Last Vital Signs Temp 98.0 F 09/25/21 07:16 Pulse 67 09/26/21 05:10 Resp 12 09/26/21 04:00 BP 131/52 09/26/21 04:00 Pulse Ox 91 09/26/21 04:00 Discharge Plan Discharge Patient Disposition: Home Condition: Stable Prescriptions: New hydralazine 25 mg Tablet 25 mg PO TID Qty: 90 0RF Rx Instructions: Measure your blood pressure before taking this pill. Do not take the pill if your blood pressure is below 130 clopidogrel 75 mg Tablet 75 mg PO DAILY Qty: 30 0RF carvedilol 3.125 mg Tablet 3.125 mg PO BID Qty: 60 0RF Continued nitroglycerin 0.4 mg tablet, sublingual 0.4 mg SUBLINGUAL Q5M PRN (Reason: Chest Pain) Qty: 25 6RF furosemide 40 mg tablet 40 mg PO QAM Qty: 30 2RF escitalopram oxalate 20 mg tablet 20 mg PO DAILY 0RF amlodipine 10 mg tablet 10 mg PO DAILY 30 Days Qty: 30 2RF clonidine HCl 0.1 mg tablet 0.1 mg PO BID Qty: 60 5RF pantoprazole 40 mg tablet,delayed release (DR/EC) 40 mg PO DAILY@08 Qty: 90 3RF atorvastatin 40 mg tablet 40 mg PO DAILY@20 Qty: 90 3RF (DME) pen needle, diabetic [ReliOn Pen [place]] 32 gauge x 5/32 needle See Rx Instructions .ROUTE .MEDSUPPLY Qty: 100 6RF Rx Instructions: use for insulin injections (DME) PROSTHETIC SUPPLIES See Rx Instructions .Route .MEDSUPPLY Qty: 1 0RF Rx Instructions: As directed aspirin 81 mg Tablet,Chewable 81 mg PO DAILY@08 0RF cholecalciferol (vitamin D3) [Vitamin D3] 25 mcg (1,000 unit) Tablet 25 mcg PO DAILY@08 0RF omega 1-pjp-lzj-fish oil [Fish Oil] 300-1,000 mg Capsule,Delayed Release(Dr/Ec) 1 cap PO BID@08,20 0RF ketorolac 0.5 % drops 1 drp ophthalmic (eye) QID 0RF Glucosamine Chondroitin 550-30-1 mg Capsule 1 cap PO DAILY 0RF ondansetron HCl 8 mg tablet 8 mg PO Q8H PRN (Reason: Nausea And Vomiting) 0RF clonazepam 0.25 mg tablet,disintegrating 0.25 mg PO BID PRN (Reason: Anxiety) 0RF Dialyvite 100-1 mg tablet 1 tab PO DAILY 0RF levothyroxine [Euthyrox] 150 mcg tablet 150 mcg PO QAM 0RF Lantus Solostar U-100 Insulin 100 unit/mL (3 mL) insulin pen 5 unit SUBCUT BID@08,20 Qty: 15 12RF Discharge Orders: Discharge Order (Routine); Ordered 09/26/21 Ordered By: Tacos Schuler Other Ambulatory Orders: Basic Metabolic Panel (Routine) Timeframe: 1 Week Facility: [facility] [place] - Location: Lab - Main Lab Ordered By: Tacos Schuler Complete Blood Count w/Auto (Routine) Timeframe: 1 Week Location: Determined by Patient Ordered By: Tacos Schuler Referrals: Jacob Sharp DO [Primary Care Provider] - Dong Pitt M.D [Physician] - 2 weeks Patient Instructions: Hypertension (DC), Coronary Artery Disease in Women (DC), Opioid Safety Activity Restrictions/Additional Instructions: Please come back to emergency room if you develop any chest pain, shortness of breath, dizziness or lightheadedness, uncontrolled blood pressure or low blood pressure or any other new symptoms. Please follow-up with your kidney doctor. Please follow-up with Dr. Pitt, heart doctor. Please follow-up with your primary care physician. Discharge Attestations Time Spent in Discharge Care*: greater than 30 min Status at Discharge: Cognitive status at discharge: cognitively intact, Behavioral status at discharge: cooperative, Quality Metrics Clinical Quality Measures [ No reported AMI, CVA or VTE this stay] Coding Level of Care Code Acute Chg FW DC note Diagnoses CAD (coronary artery disease) I25.118 Coronary Disease-Associated Artery/Lesion type: [place] artery [place] vs. transplanted heart: [place] heart Associated angina: with stable angina PAD (peripheral artery disease) I73.9 Mixed dyslipidemia E78.2 Diabetes mellitus, with long-term current use of insulin E11.59; Z79.4 Diabetes mellitus complication detail: with other circulatory complications Diabetes mellitus complication status: with circulatory complication Diabetes mellitus type: type 2 Hyperlipidemia E78.5 Hyperlipidemia type: unspecified HTN (hypertension) I10
--- NOTE | 2021-09-26 10:33 | P.PN_ITS ---
Subjective Subjective: No new issues Ms. Herzog today, no chest pain, shortness of breath, fatigue. Seen and examined on dialysis. Hemodynamics reviewed, last blood pressure 139/69 during my evaluation. Fistula working okay, of note some high venous pressures, usually she receives heparin with treatment, however, platelet count 111 will defer heparin for the time being. Medications: Medication Review Details: Generic Name Dose Route Start Last Admin Trade Name Laurence PRN Reason Stop Dose Admin Amlodipine Besylat e 10 mg 09/23/21 09:00 09/25/21 08:00 Amlodipine 10 Mg Tablet PO 10 mg DAILY JERSON Administration Aspirin 81 mg 09/23/21 08:00 09/25/21 07:59 Aspirin 81 Mg Ch ew Tablet PO 81 mg DAILY@08 [facility] Administration Atorvastatin Calci um 40 mg 09/22/21 20:00 09/24/21 19:11 Atorvastatin 40 Mg Tablet PO 40 mg DAILY@20 JERSON Administration Carvedilol 3.125 mg 09/23/21 18:00 09/25/21 08:00 Carvedilol 3.125 Mg Tablet PO 3.125 mg BID JERSON Administration Clonidine HCl 0.1 mg 09/22/21 18:00 09/24/21 17:44 Clonidine 0.1 Mg Tablet PO 0.1 mg BID JERSON Administration Clopidogrel Bisulf ate 75 mg 09/23/21 09:00 09/25/21 08:00 Clopidogrel 75 M g Tablet PO 75 mg DAILY JERSON Administration Escitalopram Oxala te 20 mg 09/23/21 09:00 09/25/21 08:01 Escitalopram 10 Mg Tablet PO 20 mg DAILY JERSON Administration Furosemide 40 mg 09/23/21 06:00 09/25/21 06:19 Furosemide 40 Mg Tablet PO 40 mg QAM JERSON Administration Hydralazine HCl 25 mg 09/23/21 09:00 09/24/21 19:11 Hydralazine 25 M g Tablet PO 25 mg TID JERSON Administration Insulin Glargine 5 unit 09/22/21 20:00 09/25/21 08:00 Insulin Glargine 100 Units/1 Ml SUBCUT 5 unit BID@, JERSON Administration Insulin Human Lisp ro 0 unit 09/22/21 21:00 09/25/21 06:20 Insulin Lispro 1 00 Unit/1 Ml SUBCUT Not Given WM&BEDTIME [facility] Protocol Ketorolac Trometha mine 1 drop 09/22/21 21:00 09/25/21 08:03 Ketorolac 0.5% O p 5 Ml Btl EYE-BOTH 1 drop QID [facility] Administration Levothyroxine Sodi um 150 mcg 09/23/21 06:00 09/25/21 06:19 Levothyroxine 15 0 Mcg Tablet PO 150 mcg QAM JERSON Administration Morphine Sulfate 2 mg 09/22/21 18:28 09/25/21 02:57 Morphine 4 Mg/Ml Sdv 1 Ml IVP 2 mg Q4H PRN Administration SEVERE PAIN Non-Formulary Medi cation 1 tab 09/23/21 09:00 09/25/21 08:11 B Complex-Vitami n C-Folic Acid [Di alyvite] PO Not Given DAILY [facility] Non-Formulary Medi cation 1 cap 09/22/21 20:00 09/25/21 08:11 [place] 3-Dha-Epa- Fish Oil [Fish Oil ] PO Not Given BID@, [facility] Ondansetron HCl 4 mg 09/24/21 06:58 09/24/21 07:52 Ondansetron 2 Mg /Ml Sdv 2 Ml IVP 4 mg Q2M PRN Administration NAUSEA Pantoprazole Sodiu m 40 mg 09/23/21 08:00 09/25/21 08:[address] 40 Mg Tablet PO 40 mg DAILY@08 [facility] Administration Vitamin D 1,000 unit 09/23/21 08:00 09/25/21 07:59 Cholecalciferol (Vitamin D3) 1,000 Unit Tablet PO 1,000 unit DAILY@08 [facility] Administration Vitals/I&O/Wt Last Vital Signs Temp 98.2 F 09/26/21 08:00 Pulse 63 09/26/21 08:00 Resp 18 09/26/21 08:00 BP 139/59 09/26/21 08:00 Pulse Ox 92 09/26/21 08:00 09/25/21 09/26/21 09/26/21 22:59 06:59 14:59 Intake Total 290 / 530 120 / 120 Output Total 150 / 250 Balance 290 / 430 -150 / 280 120 / 120 Weight last 48 hrs Weight 93.2 kg Data : 09/25/21 03:00 09/25/21 03:00 A&P Assessment and plan (1) Chronic kidney disease: Status: Acute Plan 1. End-stage renal disease Seen and examined on dialysis Wednesday, Wednesday and Wednesday Dose medication for GFR less than 15 on dialysis 2. Heart disease mgmt per cardiology is appreciated; medical mgmt 3. Hemodynamics. Blood pressure and pulse remains stable at this time. 4. Chronic ESRD issues To be handled as an outpatient, management as part of standard monthly care. - for discharge after dialysis today Zhou Mcfarland MD Nephrology [phone] Patient seen and examined via telemedicine, with the assistance of the bedside RN > 25 min spent in evaluation and mgmt of patient Attestations Medical Necessity Statement*: Eval for ESRD mgmt Coding Level of Care Code Acute Drawing Supervisor for g Fwd Diagnoses Chronic kidney disease N18.9
--- NOTE | 2021-09-26 11:38 | P.PN_ITS ---
Subjective Subjective: Patient is overall doing well. no more chest pain symptoms Vitals/I&O/Wt Last Vital Signs Temp 98.2 F 09/26/21 08:00 Pulse 63 09/26/21 08:00 Resp 18 09/26/21 08:00 BP 139/59 09/26/21 08:00 Pulse Ox 92 09/26/21 08:00 09/25/21 09/26/21 09/26/21 22:59 06:59 14:59 Intake Total 290 / 530 120 / 120 Output Total 150 / 250 Balance 290 / 430 -150 / 280 120 / 120 Weight last 48 hrs Weight 205 lb 7.533 oz Physical Exam Narrative: GENERAL: Patient is alert, awake and oriented x3. [] NECK: No jugular vein distension. [] HEENT: No cyanosis. No icterus. No pallor. [] HEART: Regular S1 and S2. No murmur, rub or gallop. [] LUNGS: Clear to auscultate bilaterally. [] ABDOMEN: Soft, nontender and nondistended. Positive bowel sounds. No guarding, rebound or tenderness. [] CENTRAL NERVOUS SYSTEM: Grossly nonfocal. [] EXTREMITIES: Lower extremity with 1+ edema Data : 09/25/21 03:00 09/25/21 03:00 A&P Assessment and plan (1) HTN (hypertension): Status: Acute (2) CAD (coronary artery disease): Status: Chronic Qualifiers: Coronary Disease-Associated Artery/Lesion type: [place] artery [place] vs. transplanted heart: [place] heart Associated angina: with stable angina Qualified Code(s): I25.118 - Atherosclerotic heart disease of [place] coronary artery with other forms of angina pectoris (3) Sleep apnea: Status: Chronic Qualifiers: Sleep apnea type: obstructive Qualified Code(s): G47.33 - Obstructive sleep apnea (adult) (pediatric) (4) Congestive heart failure: Status: Chronic Qualifiers: Heart failure chronicity: acute on chronic Heart failure type: diastolic Qualified Code(s): I50.33 - Acute on chronic diastolic (congestive) heart failure (5) CKD (chronic kidney disease) stage 5, GFR less than 15 ml/min: Status: Chronic Plan Blood pressure is well controlled.? Continue amlodipine, coreg and hydralazine.? Outpatient monitoring of blood pressure and bring logs to cardiology office appointment Stress test showed prior infarct with small area of emily-infarct ischemia.? Medical therapy for now Low-sodium diet advised. Thank you for involving us with care of this patient.? Patient is stable to be discharged from cardiology standpoint.? Please call with questions Attestations Medical Necessity Statement*: Care expected to cross 2 midnights Coding Level of Care Code Acute Portrait Artist for Maris Fwd Diagnoses HTN (hypertension) I10 CAD (coronary artery disease) I25.118 Coronary Disease-Associated Artery/Lesion type: [place] artery [place] vs. transplanted heart: [place] heart Associated angina: with stable angina Sleep apnea G47.33 Sleep apnea type: obstructive Congestive heart failure I50.33 Heart failure chronicity: acute on chronic Heart failure type: diastolic CKD (chronic kidney disease) stage 5, GFR less than 15 ml/min N18.5
[2021-09-26 13:00] VITALS: BP 135/58; BP 153/59; PULSE 61; PULSE 63; RESP 16; TEMP 36.6
[2021-09-26 13:25] VITALS: BP 137/62; PULSE 62; RESP 14; O2SAT 90
--- NOTE | 2021-09-26 13:57 | PC.HD ---
Pt repositioned near end of treatment and ANGLE DOZER OPERATOR spiked and blood pump shut off. Reset and restarted pump but ANGLE DOZER OPERATOR 300 and pt admitted to some discomfort at venous needle site so treatment immediately terminated. Less than 15 minutes of treatment left so returned blood via arterial needle and did not recannulate infiltrated venous. No swelling, bruising, or pain to infiltration site.
== END 2021-09-26 13:45 | disposition home or self-care (01) ==
LOC: ER 15:18 → CSU 17:45
PROVIDERS: Admitting Provider Internal Medicine; Emergency Provider Family Medicine; PCP Family Medicine; Visit Provider Internal Medicine
DX: I25.118 Atherosclerotic heart disease of native coronary artery with other forms of angina pectoris (principal); I73.9 Peripheral vascular disease, unspecified; E78.2 Mixed hyperlipidemia; E11.59 Type 2 diabetes mellitus with other circulatory complications; Z79.4 Long term (current) use of insulin; E78.5 Hyperlipidemia, unspecified; I10 Essential (primary) hypertension; E11.22 Type 2 diabetes mellitus with diabetic chronic kidney disease; I13.2 Hypertensive heart and chronic kidney disease with heart failure and with stage 5 chronic kidney disease, or end stage renal disease; I50.33 Acute on chronic diastolic (congestive) heart failure; N18.6 End stage renal disease; Z99.2 Dependence on renal dialysis; Z99.81 Dependence on supplemental oxygen; Z79.82 Long term (current) use of aspirin; G47.33 Obstructive sleep apnea (adult) (pediatric); D63.1 Anemia in chronic kidney disease
CPT/HCPCS: 36415; 36416; 71045; 78452; 80048; 80053; 80061; 80069; 82962; 83735; 83880; 84145; 84484; 85025; 93005; 93017; 96361; 96372; 96374; 96375; 97161; 97165; 97530; 97535; 99285; A9500; G0378; J1644; J1815 ×2; J2270; J2405; J2785; Q0162; Q3014

== ENCOUNTER → 2021-10-08 13:23 | Outpatient (BNVA) | payer MEDICARE, MEDICAID, SELFPAY | PROVIDERS: PCP Family Medicine; Visit Provider Surgery | DX: Z95.828 Presence of other vascular implants and grafts (principal); R07.9 Chest pain, unspecified; Z99.2 Dependence on renal dialysis ==

== ENCOUNTER 2021-10-08 14:03 | Emergency (ER) | payer MEDICARE, MEDICAID, SELFPAY ==
[2021-10-08] VITALS (7 sets, daily range): BP systolic 160–177; BP diastolic 66–94; PULSE 67–86; RESP 17–20; TEMP 36.3; O2SAT 90–96
--- NOTE | 2021-10-08 15:03 | ECG_ITS ---
[facility] Test Date: 2021-10-08 Pat Name: Rizwana Herzog Department: Room: Gender: Female Adjunct Instructor: : [id number] Requested By: Kacie Goodrich Order Number: [id number] Catherine MD: Soraya Ignacio M.D. Measurements Intervals [place] Rate: 67 P: -22 WV: 204 QRS: -49 QRSD: 94 T: 65 QT: 385 QTc: 409 Interpretive Statements SINUS RHYTHM LEFT ANTERIOR FASCICULAR BLOCK [QRS AXIS <= -45, QR IN I, RS IN II] POSSIBLE ANTERIOR MYOCARDIAL INFARCTION , OF INDETERMINATE AGE [30 ms Q WAVE IN V3/V4, OR R < 0.2 mV IN V4] Compared to ECG 09/22/2021 22:03:54 Left anterior fascicular block now present Left-axis deviation no longer present Myocardial infarct finding still present Electronically Signed On 10-08-2021 19:49:03 CDT by Soraya Ignacio M.D. [id number]
--- NOTE | 2021-10-08 16:00 | XRR_ITS ---
PROCEDURE INFORMATION: Exam: XR Chest Exam date and time: 10/08/2021 3:56 PM Age: 56 years old Clinical indication: Pain; Angina pectoris; Additional info: Chest pain TECHNIQUE: Imaging protocol: XR of the chest. Views: 1 view. COMPARISON: CR XR chest 1V portable [id number] 09/22/2021 3:44 PM FINDINGS: Tubes, catheters and devices: Right IJ central catheter with tip in the lower SVC, unchanged. Lungs: Cardiac silhouette size, and vascularity are somewhat accentuated, likely related to poor inspiration/expansion however clinical correlation for CSF/fluid overload should be obtained. Upper lungs are clear. Lung bases are suboptimally assessed however there are increasing bilateral basilar opacities and pleural effusions which may represent atelectasis/dependent edema. Superimposed pneumonia should also be excluded clinically. Pleural spaces: No pneumothorax. Heart/Mediastinum: As above. Bones/joints: No acute osseous findings. Other findings: Single view was submitted. XR/XR chest 1V portable [id number] IMPRESSION: 1. Accentuated cardiac silhouette size and vascularity. See discussion above. 2. Increasing bilateral basilar opacities and pleural effusions.
--- NOTE | 2021-10-08 16:05 | W.ED.CHESTPA ---
HPI - Chest Pain General: Chief Complaint: Chest Pain Stated Complaint: CP, headache, dizzy Time Seen by Provider: 10/08/21 16:05 History of Present Illness: Ms. Herzog is a 56-year-old lady with complex past medical history including hypertension, hyperlipidemia, CHF, CKD/end-stage renal disease on hemodialysis Wednesday, history of thyroid disorder, CAD presenting to the emergency department due to chest pain. She was actually seen over clinic for discussion of dialysis catheter removal as she now has a mature graft however was noted to be hypotensive and referred to the emergency department. She subsequently, while in the waiting room, has developed chest pain. Substernal with radiation to back, moderate to severe in intensity. Aching and sharp in nature. Associated generalized malaise, chills the past few days she does, and shortness of breath. Have a history of chest pain however reports that this is more severe. She has been compliant with her medication and dialysis regimen, she last dialyzed Wednesday and had a full run. She does produce some urine. No other specific changes in health, exacerbating, or alleviating factors identified. Onset (ago): hour(s) Onset: during rest Pain location: substernal Severity: moderate Quality: aching and sharp Review of Systems General: Reports: 10 or more systems reviewed and unremarkable except in HPI and below PFSH ED PFSH: Medical History Adjustment disorder with mixed disturbance of emotions and conduct Anemia in chronic kidney disease Anxiety BPPV (benign paroxysmal positional vertigo) CAD (coronary artery disease) Carotid stenosis 04/2020: Right < 50%, Left near 70% Chronic diastolic CHF (congestive heart failure) 12/2020 EF 55%, grade II/IV diastolic dysfunction Chronic kidney disease Chronic left sacroiliac joint pain Claustrophobia Diabetes mellitus Diabetes mellitus, with long-term current use of insulin Diverticulitis Elevated troponin End stage renal disease ESBL (extended spectrum beta-lactamase) producing bacteria infection ESRD (end stage renal disease) on dialysis DAILY (generalized anxiety disorder) Gastroparesis GERD (gastroesophageal reflux disease) Gram-negative bacteremia Hemodialysis catheter dysfunction HTN (hypertension) Hyperlipidemia Hypothyroidism Hypoxemia Major depression, recurrent Mixed dyslipidemia DOROTEO on CPAP PAD (peripheral artery disease) Partial nontraumatic amputation of left foot (~06/2019) Peripheral vascular disease Peritonitis associated with peritoneal dialysis Phantom pain Pneumonia due to COVID-19 virus (~12/2020) Suicidal ideation TIA (transient ischemic attack) Vitamin D deficiency Surgical History AV (arteriovenous fistula) (~10/2020) H/O hysterectomy with oophorectomy History of appendectomy History of cataract surgery History of heart artery stent PCI to LAD, done in [place], [place] 10/2018 ENRIQUE to mid LAD at [facility] 04/2020 History of hysterectomy History of left heart catheterization 04/2020 Findings: 1. There is severe coronary artery disease. 2. FFR of mid LAD was 0.76. 3. Severe OM 2 stenosis. However this is a small sized distal vessel. 4. Mid Left Anterior Descending Coronary Artery was treated with Balloon and Drug Eluting Stent History of right below knee amputation Peritoneal dialysis catheter in place Removed due to recurrent peritonitis S/P cholecystectomy S/P PICC central line placement (~2019) Status post amputation of toe Family History Denies family history of CAD (coronary artery disease) Clotting disorder Dementia Bleeding disorder Social History Smoking and tobacco status: never smoked Alcohol intake: never Household members: spouse and family History of recent travel: No Physical Exam Const: COMMON NORMALS: alert GENERAL APPEARANCE: cooperative, well developed and ill appearing HENMT: COMMON NORMALS: normocephalic and atraumatic HEAD & SCALP: normocephalic and atraumatic Eye: COMMON NORMALS: conjunctivae normal CONJUNCTIVA: Yes conjunctivae normal SCLERA: sclerae normal Neck/C-Spine: COMMON NORMALS: supple GENERAL: Yes trachea midline Resp: COMMON NORMALS: clear to auscultation bilaterally EFFORT & INSPECTION: Yes able to speak in complete sentences AUSCULTATION: clear to auscultation bilaterally Cardio: COMMON NORMALS: regular rate and regular rhythm RATE: regular rate RHYTHM: regular rhythm GI: COMMON NORMALS: Soft to palpation PALPATION: Yes Soft to palpation and No Tenderness to palpation present (GI) Extremity: GENERAL: Yes normal exam except as noted and No edema Neuro: COMMON NORMALS: moves all extremities SENSORIUM/ORIENTATION: Yes alert and No Orientation impaired Psych: COMMON NORMALS: mental status grossly normal and Normal thought process present THOUGHT PROCESS: Normal thought process present Course ED course: - Patient was seen and evaluated by me at bedside - Patient placed on cardiac monitors, IV access obtained - Initial evaluation notable for exam as above - Labs and xrays personally interpreted by me. EKGs reviewed with no STEMI. Sinus rhythm present. -Aspirin and analgesia given. - Labs notable for no leukocytosis, normal hemoglobin. ABG without pH disturbance. Metabolic panel without any acute electrolyte derangement requiring emergent dialysis. Delta troponin is negative. BNP is elevated. - Imaging notable for mildly increased effusion/pulmonary vascular congestion. - Upon serial reexamination after treatment the patient was improved - Based on patient history, evaluation, and testing as interpreted the most likely cause of the patient's condition is chest pain of unclear etiology. Possible mild volume overload the patient is not requiring new oxygen. The patient had a nuclear stress test 09/24/2021 and closely follows with cardiology. - The results of ED evaluation were discussed with the patient including prescriptions and/or symptomatic cares (if applicable) including appropriate and responsible use, followup plan, and return precautions. The patient verbalized understanding and felt safe for discharge. - Patient discharged in satisfactory condition. Note: Click bubbles or prepopulated desir in note writing are used for assistance with data collection and billing and are inherently more limited than narrative and other text portions of this note. Please use narrative for additional clinical history and defer to narrative/free test for any case of contradictory information. If information appears in only free text or click bubble it should be considered present or absent as reported. Please contact note clinical writer for clarifications of clinical information or contradictory information. MDM is a brief summary, contradictory or erroneous seeming information should be clarified and full note should be reviewed. Vital Signs: Vital signs: Vital Signs Temperature 97.4 F L 10/08/21 14:13 Pulse Rate 77 10/09/21 00:39 Respiratory Rate 18 10/09/21 00:39 Blood Pressure 177/79 10/08/21 20:30 Pulse Oximetry 91 10/09/21 00:39 MDM - Chest Pain Medical Decision Making 56-year-old lady with complex past medical history presenting due to chest pain. Patient had recent inpatient cardiac evaluation. Perhaps mild volume overload on ED evaluation however no new oxygen requirement. Patient reliable for follow-up and outpatient dialysis. Strict return precautions given. Satisfactory for outpatient management. Medical Records I reviewed the patient's medical records. Lab Data I reviewed the patient's lab results. : 10/08/21 22:35 10/08/21 18:31 Radiology Impressions Chest X-Ray 10/08/21 16:00 IMPRESSION: 1. Accentuated cardiac silhouette size and vascularity. See discussion above. 2. Increasing bilateral basilar opacities and pleural effusions. Laboratory Results WBC 5.9 10^3/uL (4.0-10.0) 10/08/21 22:35 Corrected WBC Cancelled 10/08/21 18:31 RBC 3.81 10^6/uL (4.1-5.3) L 10/08/21 22:35 Hgb 12.2 g/dL (11.5-15.3) 10/08/21: Hct 37.3 % (37.0-47.0) 10/08/21 22: MCV 97.9 fl (81-99) 10/08/21 22: MCH 32.0 pg (28.0-34.0) 10/08/21 22: MCHC 32.7 g/dL (30.0-36.0) 10/08/21 22: RDW 13.6 % (12.1-15.1) 10/08/21: Plt Count 233 10^3/cmm (130-400) 10/08/21 22: MPV 10.9 fL (7.4-10.4) H 10/08/21 22:35 Gran % Cancelled 10/08/21 18:31 Neut % (Auto) 70.7 % 10/08/21: Lymph % (Auto) 15.2 % 10/08/21 22:35 Mora % (Auto) 9.2 % 10/08/21 22: Eos % (Auto) 3.2 % 10/08/21: Baso % (Auto) 1.0 % 10/08/21: Neut # (Auto) 4.14 10^3/uL (1.8-7.7) 10/08/21 22: Lymph # (Auto) 0.9 10^3/uL (0.8-4.8) 10/08/21 22: Mora # (Auto) 0.5 10^3/uL (0.2-0.9) 10/08/21 22:35 Eos # (Auto) 0.2 10^3/uL (0.0-0.8) 10/08/21 22:35 Baso # (Auto) 0.1 10^3/uL (0.0-0.1) 10/08/21 22:35 Absolute Gran (auto) Cancelled 10/08/21 18:31 Nucleated RBC % (auto) 0 % 10/08/21 22:35 Nucleated RBCs # 0.0 /100WBC 10/08/21 22:35 Specimen Type Arterial 10/08/21 16:29 Sample Site Radial, right 10/08/21 16:29 ABG pH 7.42 (7.35-7.45) 10/08/21 16:29 ABG pCO2 42.7 mmHg (35-45) 10/08/21 16:29 ABG pO2 65.7 mmHg (80.0-100.0) L 10/08/21 16:29 ABG HCO3 27.8 mmol/L (22-26) H 10/08/21 16:29 ABG Base Excess 2.9 mmol/L (-2.0-2.0) H 10/08/21 16:29 Jason Test Pos 10/08/21 16:29 Hematocrit 40.4 % (37-47) 10/08/21 16:29 O2 Delivery Device Nc 10/08/21 16:29 O2 Liters/Min 2.0 % 10/08/21 16:29 FiO2 28.0 % 10/08/21 16:29 Varsity Baseball Coach ID Cak 10/08/21 16:29 Sodium 136 mmol/L (136-145) 10/08/21 18:31 Potassium 5.0 mmol/L (3.5-5.1) 10/08/21 18:31 Chloride 95 mmol/L (98-107) L 10/08/21 18:31 Carbon Dioxide 25 mmol/L (22-29) 10/08/21 18:31 Anion Gap 21.0 (5-19) H 10/08/21 18:31 BUN 26 mg/dL (6-20) H 10/08/21 18:31 Creatinine 6.8 mg/dL (0.5-0.9) H* 10/08/21 18:31 GFR Calculation 6.3 mL/min (90-130) L 10/08/21 18:31 Glucose 96 mg/dL (65-115) 10/08/21 18:31 Calculated Osmolality 287 mOsm/kg (285-295) 10/08/21 18:31 Calcium 10.3 mg/dL (8.5-10.5) 10/08/21 18:31 Total Bilirubin 0.5 mg/dL (0.15-1.2) 10/08/21 18:31 AST 30 U/L (0-32) 10/08/21 18:31 ALT 16 U/L (0-33) 10/08/21 18:31 Alkaline Phosphatase 147 IU/L (35-105) H 10/08/21 18:31 Troponin T Baseline 112 ng/L (0-10) H* 10/08/21 18:31 Troponin T Hi Sens 6Hr 100.6 ng/L (0-10) H 10/08/21 22:35 Troponin T Hi Sens 6Hr Delta -11.4 ng/L (0-12) L 10/08/21 22:35 NT-Pro-B Natriuret Pep 8981 pg/mL (0-125) H 10/08/21 18:31 Total Protein 7.6 g/dL (6.6-8.7) 10/08/21 18:31 Albumin 4.2 g/dL (3.5-5.2) 10/08/21 18:31 Globulin 3.4 g/dL (1.3-4.6) 10/08/21 18:31 Lipase 15 U/L (13-60) 10/08/21 18:31 Coronavirus 229E (PCR) Not detected (NOT DETECT) 10/08/21 17:40 SARS-CoV-2 (PCR) Not detected (NOT DETECT) 10/08/21 17:40 Discharge Plan Discharge Patient Disposition: Home Clinical Impression: Chest pain Condition: Stable Prescriptions: No Action nitroglycerin 0.4 mg tablet, sublingual 0.4 mg SUBLINGUAL Q5M PRN (Reason: Chest Pain) Qty: 25 6RF furosemide 40 mg tablet 40 mg PO QAM Qty: 30 2RF escitalopram oxalate 20 mg tablet 20 mg PO DAILY 0RF amlodipine 10 mg tablet 10 mg PO DAILY 30 Days Qty: 30 2RF clonazepam 0.25 mg tablet,disintegrating 0.25 mg PO BID PRN (Reason: Anxiety) Qty: 30 0RF oxycodone 5 mg tablet 5 mg PO Q12H 30 Days Qty: 60 0RF cyclobenzaprine 10 mg tablet 10 mg PO TID PRN (Reason: muscle spasm) Qty: 30 2RF clonidine HCl 0.1 mg tablet 0.1 mg PO BID Qty: 60 5RF pantoprazole 40 mg tablet,delayed release (DR/EC) 40 mg PO DAILY@08 Qty: 90 3RF atorvastatin 40 mg tablet 40 mg PO DAILY@20 Qty: 90 3RF (DME) pen needle, diabetic [ReliOn Pen [place]] 32 gauge x 5/32 needle See Rx Instructions .ROUTE .MEDSUPPLY Qty: 100 6RF Rx Instructions: use for insulin injections (DME) PROSTHETIC SUPPLIES See Rx Instructions .Route .MEDSUPPLY Qty: 1 0RF Rx Instructions: As directed aspirin 81 mg Tablet,Chewable 81 mg PO DAILY@08 0RF cholecalciferol (vitamin D3) [Vitamin D3] 25 mcg (1,000 unit) Tablet 25 mcg PO DAILY@08 0RF omega 9-box-brl-fish oil [Fish Oil] 300-1,000 mg Capsule,Delayed Release(Dr/Ec) 1 cap PO BID@08,20 0RF ketorolac 0.5 % drops 1 drp ophthalmic (eye) QID 0RF Glucosamine Chondroitin 550-30-1 mg Capsule 1 cap PO DAILY 0RF hydralazine 25 mg Tablet 25 mg PO TID Qty: 90 0RF Rx Instructions: Measure your blood pressure before taking this pill. Do not take the pill if your blood pressure is below 130 carvedilol 3.125 mg Tablet 3.125 mg PO BID Qty: 60 0RF ondansetron HCl 8 mg tablet 8 mg PO Q8H PRN (Reason: Nausea And Vomiting) 0RF Dialyvite 100-1 mg tablet 1 tab PO DAILY 0RF levothyroxine [Euthyrox] 150 mcg tablet 150 mcg PO QAM 0RF Lantus Solostar U-100 Insulin 100 unit/mL (3 mL) insulin pen 5 unit SUBCUT BID@08,20 Qty: 15 12RF Discharge Orders: Discharge ED (Routine); Ordered 10/08/21 Ordered By: Damon Finney Referrals: Jacob Sharp, [Primary Care Provider] - Discharge Diet: Usual diet Discharge Activity: Resume usual activity Patient Instructions: Chest Pain (ED), Opioid Safety Activity Restrictions/Additional Instructions: Thank you for visiting the emergency department. You were seen evaluated for chest pain. The exact cause of your symptoms is unclear, given your recent stress test I do not believe that you need inpatient evaluation at this time however you do require close cardiology follow-up. Please continue your current medication regimen. Please follow-up with your primary care provider and dialysis. Please return to the emergency department for worsening symptoms or anything else that you are concerned about and feel needs emergency department evaluation. 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
[2021-10-08 16:40] LABS: ABG PCO2 42.7 mmHg (35-45); ABG PH Result 7.42 (7.35-7.45); Arterial Blood Gas Hematocrit 40.4 % (37-47); Base Excess ABG 2.9 mmol/L (-2.0-2.0); Blood Gas Allen Test Pos; Blood Gas Operator Identificat CAK; Blood Gas Sample Site Radial, right; Blood Gas Sample Type Arterial; HCO3 ABG 27.8 mmol/L (22-26); Oxygen Device NC; PO2 ABG 65.7 mmHg (80.0-100.0)
[2021-10-08] MEDS: aspirin 81 mg Chew Tablet 324 MG PO (16:57)
--- NOTE | 2021-10-08 17:03 | ECG_ITS ---
[facility] Test Date: 2021-10-08 Pat Name: Rizwana Herzog Department: Room: Gender: Female Manager Facility: : [id number] Requested By: Kacie Goodrich Order Number: [id number] Catherine MD: Soraya Ignacio M.D. Measurements Intervals [place] Rate: 68 P: MA: QRS: -57 QRSD: 97 T: 69 QT: 401 QTc: 428 Interpretive Statements SUPRAVENTRICULAR RHYTHM LEFT ANTERIOR FASCICULAR BLOCK [QRS AXIS <= -45, QR IN I, RS IN II] POSSIBLE ANTERIOR MYOCARDIAL INFARCTION , OF INDETERMINATE AGE [30 ms Q WAVE IN V3/V4, OR R < 0.2 mV IN V4] Compared to ECG 10/08/2021 14:20:57 Supraventricular rhythm now present Sinus rhythm no longer present Myocardial infarct finding still present Electronically Signed On 10-08-2021 20:07:00 CDT by Soraya Ignacio M.D. [id number]
[2021-10-08] MEDS: morphine 4 mg/mL SDV 1 mL IVP (18:54)
[2021-10-08 19:58] LABS: Albumin Level 4.2 g/dL (3.5-5.2); Alkaline Phosphatase 147 IU/L (35-105); Blood Urea Nitrogen 26 mg/dL (6-20); Calcium 10.3 mg/dL (8.5-10.5); Carbon Dioxide 25 mmol/L (22-29); Chloride 95 mmol/L (98-107); Globulin 3.4 g/dL (1.3-4.6); Glomerular Filtration Rate 6.3 mL/min (90-130); Glucose 96 mg/dL (65-115); Lipase 15 U/L (13-60); NT Pro B Type Natriuretic Pept 8981 pg/mL (0-125); Osmolality Calculated 287 mOsm/kg (285-295); Sodium 136 mmol/L (136-145); Total Bilirubin 0.5 mg/dL (0.15-1.2); Total Protein 7.6 g/dL (6.6-8.7); Troponin(5th) Baseline 112 ng/L (0-10)
[2021-10-08 19:59] LABS: Alanine Aminotransferase 16 U/L (0-33); Aspartate Amino Transferase 30 U/L (0-32)
[2021-10-08 20:48] LABS: Adenovirus Not Detected (NOT DETECT); Chlamydia Pneumoniae Not Detected (NOT DETECT); Coronavirus 229E,HKU1,NL63,OC4 Not Detected (NOT DETECT); Human Metapneumovirus Not Detected (NOT DETECT); Human Rhinovirus/Enterovirus Not Detected (NOT DETECT); Influenza A Not Detected (NOT DETECT); Influenza A H1 Not Detected (NOT DETECT); Influenza A H1-2009 Not Detected (NOT DETECT); Influenza A H3 Not Detected (NOT DETECT); Influenza B Not Detected (NOT DETECT); Mycoplasma Pneumoniae Not Detected (NOT DETECT); Parainfluenza Virus Type 1 Not Detected (NOT DETECT); Parainfluenza Virus Type 2 Not Detected (NOT DETECT); Parainfluenza Virus Type 3 Not Detected (NOT DETECT); Parainfluenza Virus Type 4 Not Detected (NOT DETECT); Respiratory Syncytial Virus A Not Detected (NOT DETECT); Respiratory Syncytial Virus B Not Detected (NOT DETECT); SARS-COV-2 Not Detected (NOT DETECT)
--- NOTE | 2021-10-08 21:03 | ECG_ITS ---
[facility] Test Date: 2021-10-08 Pat Name: Rizwana Herzog Department: Room: Gender: Female Clean Energy Policy Analyst: : 1965 Requested By: Kacie Goodrich Order Number: [id number] Reading MD: Manny Tan M.D. Measurements Intervals [place] Rate: 63 P: 80 OR: 206 QRS: -52 QRSD: 98 T: 52 QT: 422 QTc: 434 Interpretive Statements SINUS RHYTHM POSSIBLE ANTERIOR MYOCARDIAL INFARCTION , OF INDETERMINATE AGE [30 ms Q WAVE IN V3/V4, OR R < 0.2 mV IN V4] INFERIOR MYOCARDIAL INFARCTION , PROBABLY OLD [40+ ms Q WAVE AND/OR ST/T ABNORMALITY IN II/aVF] Compared to ECG 10/08/2021 17:18:40 Supraventricular rhythm no longer present Left anterior fascicular block no longer present Myocardial infarct finding still present Electronically Signed On 10-09-2021 11:05:18 CDT by Manny Tan M.D. [id number]
[2021-10-08 23:00] LABS: Basophils # 0.1 10^3/uL (0.0-0.1); Eosinophils # 0.2 10^3/uL (0.0-0.8); Eosinophils % 3.2 %; Hematocrit 37.3 % (37.0-47.0); Hemoglobin 12.2 g/dL (11.5-15.3); Lymphocytes # 0.9 10^3/uL (0.8-4.8); Lymphocytes % 15.2 %; Mean Corpuscular HGB Conc 32.7 g/dL (30.0-36.0); Mean Corpuscular Volume 97.9 fl (81-99); Mean Platelet Volume 10.9 fL (7.4-10.4); Monocytes # 0.5 10^3/uL (0.2-0.9); Monocytes % 9.2 %; Neutrophils # 4.14 10^3/uL (1.8-7.7); Neutrophils % 70.7 %; Nucleated Red Blood Cells % 0 %; Platelet Count 233 10^3/cmm (130-400); Red Blood Count 3.81 10^6/uL (4.1-5.3); Red Cell Distribution Width 13.6 % (12.1-15.1); White Blood Count 5.9 10^3/uL (4.0-10.0)
[2021-10-08 23:24] LABS: Troponin 5 6HR Delta -11.4 ng/L (0-12)
[2021-10-08 23:25] LABS: Troponin 5 6HR 100.6 ng/L (0-10)
[2021-10-09 00:39] VITALS: PULSE 77; RESP 18; O2SAT 91
== END 2021-10-09 00:43 | disposition home or self-care (01) ==
PROVIDERS: Physician Assistant; Emergency Provider Emergency Medicine; PCP Family Medicine
DX: R07.9 Chest pain, unspecified (principal); I25.10 Atherosclerotic heart disease of native coronary artery without angina pectoris; I13.2 Hypertensive heart and chronic kidney disease with heart failure and with stage 5 chronic kidney disease, or end stage renal disease; I50.32 Chronic diastolic (congestive) heart failure; N18.6 End stage renal disease; E11.22 Type 2 diabetes mellitus with diabetic chronic kidney disease; E78.5 Hyperlipidemia, unspecified; E05.90 Thyrotoxicosis, unspecified without thyrotoxic crisis or storm; Z99.2 Dependence on renal dialysis; Z79.4 Long term (current) use of insulin; Z79.82 Long term (current) use of aspirin; R94.31 Abnormal electrocardiogram [ECG] [EKG]; Z95.828 Presence of other vascular implants and grafts; I44.7 Left bundle-branch block, unspecified
CPT/HCPCS: 36600; 71045; 80053; 82803; 83690; 83880; 84484; 85025; 87040; 87635; 93005; 96374; 99213; 99285; J2270

== ENCOUNTER 2021-10-20 07:23 | Day surgery (SDC) | payer MEDICARE, MEDICAID, SELFPAY ==
[2021-10-17 15:16] VITALS: BMI 31.6
[2021-10-20 08:00] VITALS: BP 180/87; PULSE 70; RESP 18; TEMP 36.5; O2SAT 99
[2021-10-20] MEDS: sodium chloride 0.9% 1,000 ML 30 ML IV (08:06)
--- NOTE | 2021-10-20 08:08 | P.ANESASSM_ITS ---
Pre-Anesthetic Assessment Height/Weight: Height 1.65 m Weight 86.183 kg Temp Pulse Resp BP Pulse Ox 97.7 F 70 18 180/87 99 10/20/21 08:00 10/20/21 08:00 10/20/21 08:00 10/20/21 08:00 10/20/21 08:00 Preop Diagnosis: Hemodialysis catheter in place Operation Date: 10/20/21 09:00 Proposed Procedures p removal of hemodialysis cath 88709/Z99.2(Not Applicable) - Ifeanyi Still MD Familial anesthetic complications: none Was Beta Abdon taken within 24 hours: N/A Was Clonidine taken within 24 hours: N/A Last intake: Intake Last Liquid Date 10/19/21 Last Liquid Time 19:30 Last Solid Date 10/19/21 Last Solid Time 19:30 Social No alcohol and No tobacco Exam alert, oriented x 3, clear to auscultation bilaterally and regular rate & rhythm Airway Mallampati: Class II Dentition: full Pulmonary Sleep Apnea CV/HEM Coronary Artery Disease, Congestive Heart Failure and Hypertension 09/26 sestamibi stres test Conclusion: 1.? Normal EKG response to Lexiscan infusion 2.? No Lexiscan induced chest pain or cardiac arrhythmia. 3.? Normal blood pressure and heart rate response. 4.? Sestamibi/sestamibi perfusion scan pending; see separate report. 09/26 perfusion scan IMPRESSIONS ?1. Abnormal myocardial perfusion imaging with large sized prior infarct with ?small area of emily-infarct ischemia in LAD and left circumflex artery territory ?2. LV systolic function is normal 08/26 echo CONCLUSIONS ?Normal transthoracic echocardiogram. Chronic Renal Insufficiency Hepatic None reported GI Gastroesophageal Reflux Disease Metabolic Diabetes Mellitus, Hyperlipidemia and Thyroid Disease Neuropsych carotid stenosis Anesthetic Plan ASA status: 4 Anesthesia: MAC Risk of > 500 ml blood loss (7ml/kg in children): No Medications/Allergies Home Medications Medication Instructions Recorded Confirmed Last Taken Type aspirin 81 mg chewable tablet 81 mg PO DAILY@06/25/19 10/20/21 10/18/21 History omega 7-ogk-rzm-fish oil 300 1 cap PO BID@01/17/20 10/20/21 10/19/21 History mg-1,000 mg capsule,delayed release (Fish Oil) nitroglycerin 0.4 mg sublingual 0.4 mg SUBLINGUAL Q5M PRN #25 tab 03/26/20 10/20/21 04/18/20 Rx tablet cholecalciferol (vitamin D3) 25 25 mcg PO DAILY@08 05/14/20 10/20/21 10/19/21 History mcg (1,000 unit) tablet (Vitamin D3) clonidine HCl 0.1 mg tablet 0.1 mg PO BID #60 tab 01/03/21 10/20/21 10/19/21 Rx pantoprazole 40 mg tablet,delayed 40 mg PO DAILY@08 #90 tab 04/02/21 10/20/21 10/19/21 Rx release atorvastatin 40 mg tablet 40 mg PO DAILY@20 #90 tab 04/28/21 10/20/21 10/19/21 Rx pen needle, diabetic 32 gauge x #100 ea 06/17/21 10/20/21 Unknown Rx (ReliOn Pen [place]) amlodipine 10 mg tablet 10 mg PO DAILY 30 Days #30 tab 07/22/21 10/20/21 10/19/21 Rx escitalopram oxalate 20 mg tablet 20 mg PO DAILY 07/22/21 10/20/21 10/19/21 History furosemide 40 mg tablet 40 mg PO QAM #30 tab 08/12/21 10/20/21 10/19/21 Rx PROSTHETIC SUPPLIES #1 ea 08/21/21 10/20/21 Unknown Rx levothyroxine 150 mcg tablet 150 mcg PO QAM 09/02/21 10/20/21 10/20/21 History (Euthyrox) ondansetron HCl 8 mg tablet 8 mg PO Q8H PRN 09/02/21 10/20/21 10/13/21 History vitamin B complex-vitamin C 100 1 tab PO DAILY 09/02/21 10/20/21 10/19/21 History mg-folic acid 1 mg tablet (Dialyvite) insulin glargine 100 unit/mL (3 5 unit (0.05 mL) SUBCUT BID@,09/05/21 10/20/21 10/19/21 Rx mL) subcutaneous pen (Lantus #15 ml Solostar U-100 Insulin) glucosamine sulf dipot 1 cap PO DAILY 09/22/21 10/20/21 10/19/21 History chlr,msm,chond 550 mg-C 30 mg-janet 1 mg capsule (Glucosamine Chondroitin) ketorolac 0.5 % eye drops 1 drp OPHTHALMIC (EYE) QID 09/22/21 10/20/21 10/19/21 History carvedilol 3.125 mg tablet 3.125 mg PO BID #60 tab 09/26/21 10/20/21 10/20/21 Rx hydralazine 25 mg tablet 25 mg PO TID #90 tab 09/26/21 10/20/21 10/19/21 Rx clonazepam 0.25 mg disintegrating 0.25 mg PO BID PRN #30 tab 10/14/21 10/20/21 10/19/21 Rx tablet cyclobenzaprine 10 mg tablet 10 mg PO TID PRN #30 tab 10/14/21 10/20/21 10/19/21 Rx oxycodone 5 mg tablet 5 mg PO Q12H 30 Days #60 tab 10/14/21 10/20/21 10/19/21 Rx Allergies Allergy/AdvReac Type Severity Reaction Status Date / Time metformin [From Glucophage] Allergy Severe Unknown Verified 10/20/21 07:47 venlafaxine [From Effexor] Allergy Severe ADR-Shakine Verified 10/20/21 07:47 ss Current Medications Generic Name Dose Route Start Last Admin Trade Name Freq PRN Reason Stop Dose Admin Sodium Chloride 1,000 mls @ 30 mls/hr 10/20/21 07:45 10/20/21 08:06 Sodium Chloride 0.9% IV 10/21/21 07:44 30 mls/hr .Q24H JERSON Administration PFSH Anesthesia Medical History Adjustment disorder with mixed disturbance of emotions and conduct Anemia in chronic kidney disease Anxiety BPPV (benign paroxysmal positional vertigo) CAD (coronary artery disease) Carotid stenosis 04/2020: Right < 50%, Left near 70% Chronic diastolic CHF (congestive heart failure) 12/2020 EF 55%, grade II/IV diastolic dysfunction Chronic kidney disease Chronic left sacroiliac joint pain Claustrophobia Diabetes mellitus Diabetes mellitus, with long-term current use of insulin Diverticulitis Elevated troponin End stage renal disease ESBL (extended spectrum beta-lactamase) producing bacteria infection ESRD (end stage renal disease) on dialysis DAILY (generalized anxiety disorder) Gastroparesis GERD (gastroesophageal reflux disease) Gram-negative bacteremia Hemodialysis catheter dysfunction HTN (hypertension) Hyperlipidemia Hypothyroidism Hypoxemia Major depression, recurrent Mixed dyslipidemia DOROTEO on CPAP PAD (peripheral artery disease) Partial nontraumatic amputation of left foot (~06/2019) Peripheral vascular disease Peritonitis associated with peritoneal dialysis Phantom pain Pneumonia due to COVID-19 virus (~12/2020) Suicidal ideation TIA (transient ischemic attack) Vitamin D deficiency Surgical History AV (arteriovenous fistula) (~10/2020) H/O hysterectomy with oophorectomy History of appendectomy History of cataract surgery History of heart artery stent PCI to LAD, done in [place], [place] 10/2018 ENRIQUE to mid LAD at [facility] 04/2020 History of hysterectomy History of left heart catheterization 04/2020 Findings: 1. There is severe coronary artery disease. 2. FFR of mid LAD was 0.76. 3. Severe OM 2 stenosis. However this is a small sized distal vessel. 4. Mid Left Anterior Descending Coronary Artery was treated with Balloon and Drug Eluting Stent History of right below knee amputation Peritoneal dialysis catheter in place Removed due to recurrent peritonitis S/P cholecystectomy S/P PICC central line placement (~2019) Status post amputation of toe Family History Denies family history of CAD (coronary artery disease) Clotting disorder Dementia Bleeding disorder Social History Smoking and tobacco status: never smoked Alcohol intake: never Household members: spouse and family History of recent travel: No Data Anesthesia Cardiac Studies: Echocardiogram 12/08/20 Echocardiogram Limited Views 09/02/21 Echocardiogram Ultrasound 02/01/20 Sestamibi Stress Test (Cardiology) 09/23/21 Holter Monitor 04/08/20
--- NOTE | 2021-10-20 08:24 | ANES.PREANE2 ---
Pre-Anesthetic Assessment Height/Weight: Height 1.65 m Weight 86.183 kg Temp Pulse Resp BP Pulse Ox 97.7 F 70 18 180/87 99 10/20/21 08:00 10/20/21 08:00 10/20/21 08:00 10/20/21 08:00 10/20/21 08:00 Preop Diagnosis: Hemodialysis catheter in place Operation Date: 10/20/21 09:00 Proposed Procedures p removal of hemodialysis cath 04815/Z99.2(Not Applicable) - Ifeanyi Still MD Familial anesthetic complications: none Last intake: Intake Last Liquid Date 10/19/21 Last Liquid Time 19:30 Last Solid Date 10/19/21 Last Solid Time 19:30 Social No alcohol and No tobacco Exam alert, oriented x 3, clear to auscultation bilaterally and regular rate & rhythm Pulmonary Sleep Apnea hx pneumonia CV/HEM Coronary Artery Disease, Congestive Heart Failure and Hypertension Medications/Allergies Home Medications Medication Instructions Recorded Confirmed Last Taken Type aspirin 81 mg chewable tablet 81 mg PO DAILY@06/25/19 10/20/21 10/18/21 History omega 5-wax-jkw-fish oil 300 1 cap PO BID@01/17/20 10/20/21 10/19/21 History mg-1,000 mg capsule,delayed release (Fish Oil) nitroglycerin 0.4 mg sublingual 0.4 mg SUBLINGUAL Q5M PRN #25 tab 03/26/20 10/20/21 04/18/20 Rx tablet cholecalciferol (vitamin D3) 25 25 mcg PO DAILY@08 05/14/20 10/20/21 10/19/21 History mcg (1,000 unit) tablet (Vitamin D3) clonidine HCl 0.1 mg tablet 0.1 mg PO BID #60 tab 01/03/21 10/20/21 10/19/21 Rx pantoprazole 40 mg tablet,delayed 40 mg PO DAILY@08 #90 tab 04/02/21 10/20/21 10/19/21 Rx release atorvastatin 40 mg tablet 40 mg PO DAILY@20 #90 tab 04/28/21 10/20/21 10/19/21 Rx pen needle, diabetic 32 gauge x #100 ea 06/17/21 10/20/21 Unknown Rx (ReliOn Pen Exira) amlodipine 10 mg tablet 10 mg PO DAILY 30 Days #30 tab 07/22/21 10/20/21 10/19/21 Rx escitalopram oxalate 20 mg tablet 20 mg PO DAILY 07/22/21 10/20/21 10/19/21 History furosemide 40 mg tablet 40 mg PO QAM #30 tab 08/12/21 10/20/21 10/19/21 Rx PROSTHETIC SUPPLIES #1 ea 08/21/21 10/20/21 Unknown Rx levothyroxine 150 mcg tablet 150 mcg PO QAM 09/02/21 10/20/21 10/20/21 History (Euthyrox) ondansetron HCl 8 mg tablet 8 mg PO Q8H PRN 09/02/21 10/20/21 10/13/21 History vitamin B complex-vitamin C 100 1 tab PO DAILY 09/02/21 10/20/21 10/19/21 History mg-folic acid 1 mg tablet (Dialyvite) insulin glargine 100 unit/mL (3 5 unit (0.05 mL) SUBCUT BID@08,09/05/21 10/20/21 10/19/21 Rx mL) subcutaneous pen (Lantus #15 ml Solostar U-100 Insulin) glucosamine sulf dipot 1 cap PO DAILY 09/22/21 10/20/21 10/19/21 History chlr,msm,chond 550 mg-C 30 mg-janet 1 mg capsule (Glucosamine Chondroitin) ketorolac 0.5 % eye drops 1 drp OPHTHALMIC (EYE) QID 09/22/21 10/20/21 10/19/21 History carvedilol 3.125 mg tablet 3.125 mg PO BID #60 tab 09/26/21 10/20/21 10/20/21 Rx hydralazine 25 mg tablet 25 mg PO TID #90 tab 09/26/21 10/20/21 10/19/21 Rx clonazepam 0.25 mg disintegrating 0.25 mg PO BID PRN #30 tab 10/14/21 10/20/21 10/19/21 Rx tablet cyclobenzaprine 10 mg tablet 10 mg PO TID PRN #30 tab 10/14/21 10/20/21 10/19/21 Rx oxycodone 5 mg tablet 5 mg PO Q12H 30 Days #60 tab 10/14/21 10/20/21 10/19/21 Rx Allergies Allergy/AdvReac Type Severity Reaction Status Date / Time metformin [From Glucophage] Allergy Severe Unknown Verified 10/20/21 07:47 venlafaxine [From Effexor] Allergy Severe ADR-Shakine Verified 10/20/21 07:47 ss Current Medications Generic Name Dose Route Start Last Admin Trade Name Freq PRN Reason Stop Dose Admin Sodium Chloride 1,000 mls @ 30 mls/hr 10/20/21 07:45 10/20/21 08:06 Sodium Chloride 0.9% IV 10/21/21 07:44 30 mls/hr .Q24H JERSON Administration PFSH Anesthesia Medical History Adjustment disorder with mixed disturbance of emotions and conduct Anemia in chronic kidney disease Anxiety BPPV (benign paroxysmal positional vertigo) CAD (coronary artery disease) Carotid stenosis 04/2020: Right < 50%, Left near 70% Chronic diastolic CHF (congestive heart failure) 12/2020 EF 55%, grade II/IV diastolic dysfunction Chronic kidney disease Chronic left sacroiliac joint pain Claustrophobia Diabetes mellitus Diabetes mellitus, with long-term current use of insulin Diverticulitis Elevated troponin End stage renal disease ESBL (extended spectrum beta-lactamase) producing bacteria infection ESRD (end stage renal disease) on dialysis DAILY (generalized anxiety disorder) Gastroparesis GERD (gastroesophageal reflux disease) Gram-negative bacteremia Hemodialysis catheter dysfunction HTN (hypertension) Hyperlipidemia Hypothyroidism Hypoxemia Major depression, recurrent Mixed dyslipidemia DOROTEO on CPAP PAD (peripheral artery disease) Partial nontraumatic amputation of left foot (~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 There is severe coronary artery disease. 2. FFR of mid LAD was 0.76. 3. Severe OM 2 stenosis. However this is a small sized distal vessel. 4. Mid Left Anterior Descending Coronary Artery was treated with Balloon and Drug Eluting Stent History of right below knee amputation Peritoneal dialysis catheter in place Removed due to recurrent peritonitis S/P cholecystectomy S/P PICC central line placement (~2019) Status post amputation of toe Family History Denies family history of CAD (coronary artery disease) Clotting disorder Dementia Bleeding disorder Social History Smoking and tobacco status: never smoked Alcohol intake: never Household members: spouse and family History of recent travel: No Data Anesthesia Cardiac Studies: Echocardiogram 12/08/20 Echocardiogram Limited Views 09/02/21 Echocardiogram Ultrasound 02/01/20 Sestamibi Stress Test (Cardiology) 09/23/21 Holter Monitor 04/08/20
--- NOTE | 2021-10-20 08:36 | W.PM.OPSUD ---
Surgery/Procedure H&P Update DATE OF PROCEDURE: October 20, 2021 DATE H&P PERFORMED: 10/08/21 H&P UPDATE INFORMATION: I have reviewed H&P completed within last 30 days, I have examined patient prior to procedure and No changes to prior documentation PREOP DIAGNOSIS: Hemodialysis catheter in place PRIMARY INDICATION FOR PROCEDURE: The same PLANNED PROCEDURE: Operation Date: 10/20/21 09:00 Proposed Procedures p removal of hemodialysis cath 39492/Z99.2(Not Applicable) - Ifeanyi Still MD
[2021-10-20 08:48] LABS: Glucose Point of Care 86 mg/dL (70-110)
[2021-10-20] MEDS: lidocaine 2% INJ 20 mL INJECTION (09:10)
[2021-10-20] MEDS: neomycin-poly-bacitracin oint 28 gm 1 APPLIC TOPICAL (09:20)
--- NOTE | 2021-10-20 09:25 | P.OP_ITS ---
Operative Report Date of procedure: October 20, 2021 Pre-op diagnosis: Preop Diagnosis Hemodialysis catheter in place Procedure done: Explantation of right upper chest tunneled hemodialysis catheter Surgeon: Ifeanyi Still MD Lead Systems Developer: packaging tech Angela Circulating Nurse Autumn Anesthesia: MAC (ROOPA Mora) Estimated blood loss (mL): 5 Procedure: After identifying the patient in the holding area and the appropriate site is marked by me, informed consent per chart ,patient was then taken to the operative suite, was placed in supine position, IV propofol was infused by the anesthesia provider and both arms were tucked, prep and drape of the both sides of the right upper chest and neck regions was done under the usual sterile technique and both neck sides. Time-out was done verifying the patient's name/date of /planned procedure and destination after the procedure, all were in agreement. I started by injection of lidocaine 2% at the site of the exit of the HD catheter. Dissection using hemostat was done and the catheter was freed from the surrounding adhesions. Patient was in Trendelenburg position at this point the catheter was removed at the same time direct pressure was applied at the site of the right internal jugular vein stick to prevent bleeding for at least 7 to 8 minutes. There was no evidence of infection. Thorough irrigation of the HD exit wound was done followed by as done to the wound followed by trimming of the edges, there was no evidence of bleeding, closure using 3-0 Vicryl as a deep subdermal followed by interrupted 3-0 Vicryl for skin, followed by triple antibiotic ointment and pressure dressing was applied at the right internal jugular vein insert. Patient tolerated the procedure well, count of instruments, needles and sponges were completed at the end of the procedure.And then patient was taken to the recovery area in stable condition. I Was present for the whole entire procedure
[2021-10-20 09:34] VITALS: BP 193/96; PULSE 68; RESP 18; TEMP 36.7; O2SAT 92
--- NOTE | 2021-10-20 09:37 | XR_ITS ---
WS: [id number] CHEST XRAY TECHNIQUE: Portable chest. CLINICAL INFORMATION: Status post removal of right IJ tunneled HD catheter COMPARISON: October 08, 2021 FINDINGS: Removal of RIGHT IJ tunneled venous catheter. No pneumothorax. Heart: Cardiomegaly. Lungs: Moderate pulmonary vascular congestion with interstitial edema. Small to moderate RIGHT and sm all LEFT pleural effusions Bones: Normal visualized bony structures. XR/XR chest 1V portable [id number] IMPRESSION: 1. Removal of RIGHT IJ tunneled venous catheter. No pneumothorax. 2. Cardiomegaly with moderate pulmonary vascular congestion and small to moder ate RIGHT and small LEFT pleural effusions.
[2021-10-20 09:39] VITALS: BP 189/96; PULSE 67; RESP 16; O2SAT 92
[2021-10-20 09:44] VITALS: BP 190/98; PULSE 67; RESP 16; TEMP 36.4; O2SAT 94
[2021-10-20 10:00] VITALS: BP 183/93; PULSE 67; RESP 18; TEMP 36.4; O2SAT 93
--- NOTE | 2021-10-20 10:20 | PC.NURSE ---
Patient reporting SOB. States it has been getting worse over the last 2 days. Lungs clear and 94% 3 L NC. Does not appear SOB at rest. Patient attributed some SOB in preop to running out of O2 on portable tank but felt better after pacing patient back on oxygen. Anesthesia brought back to recovery room in OPS. Dr Bee examined patient and order EKG since CXR in PACU was normal aside from bilat. pleural effusions. Dr Pandey talked with the patient about going home and returning to ER if SOB worsens. Patient stated she wanted to proceed with transferring to the ER. Report called to ER charge nurse and will be going to ER 3. Surgical account with be discharged and ER will create a new account when arriving. EKG complete prior to leaving OPS area. Daughter, Pooja, at bedside. Dr Still updated with situation. No further orders at this time.
--- NOTE | 2021-10-20 10:22 | ECG_ITS ---
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 Measurements Intervals [place] Rate: 68 P: -23 UT: 196 QRS: -45 QRSD: 97 T: 50 QT: 430 QTc: 459 Interpretive Statements SINUS RHYTHM LEFT AXIS DEVIATION [QRS AXIS < -30] POSSIBLE ANTERIOR MYOCARDIAL INFARCTION , PROBABLY OLD [30 ms Q WAVE IN V3/V4, OR R < 0.2 mV IN V4] Compared to ECG 10/08/2021 23:02:23 Left-axis deviation now present Myocardial infarct finding still present Electronically Signed On 10-20-2021 17:41:38 CDT by Soraya Ignacio M.D. [id number]
[2021-10-20 10:29] VITALS: BP 171/79; PULSE 69; RESP 20; O2SAT 93
--- NOTE | 2021-10-20 10:54 | PM.MISC ---
Miscellaneous Note Note: Patient states she is short of breath and has been since this morning. When she arrived this morning she had run out of her oxygen and had to change into hospital gown (physically taxing for her), and this was thought to be the etiology of SOB, but had no acute distress. Now she is sitting in bed with slightly rapid rate of breathing, no accessory muscle use, no stridor, lungs CTA, back on her O2 and satting 93%, also complaining of some chest pain developing. CXR and EKG similar, no acute changes. Asked patient if she felt safe going home in care of her daughter and going to ER if her symptoms worsened. Patient stated she did not feel safe going home and so she was sent to ER for further evaluation.
[2021-10-20 23:22] LABS: Glucose Point of Care 100 mg/dL (70-110)
[2021-10-21 07:41] LABS: Glucose Point of Care 79 mg/dL (70-110)
== END 2021-10-20 11:00 ==
PROVIDERS: PCP Family Medicine; Visit Provider Surgery
PROC: (CPT 36589; principal; 2021-10-20 08:50)
DX: Z49.01 Encounter for fitting and adjustment of extracorporeal dialysis catheter (principal); G47.30 Sleep apnea, unspecified; I25.10 Atherosclerotic heart disease of native coronary artery without angina pectoris; Z79.82 Long term (current) use of aspirin; F41.9 Anxiety disorder, unspecified; E11.22 Type 2 diabetes mellitus with diabetic chronic kidney disease; I13.2 Hypertensive heart and chronic kidney disease with heart failure and with stage 5 chronic kidney disease, or end stage renal disease; I50.32 Chronic diastolic (congestive) heart failure; N18.6 End stage renal disease; F41.1 Generalized anxiety disorder; K21.9 Gastro-esophageal reflux disease without esophagitis; E78.2 Mixed hyperlipidemia; G47.33 Obstructive sleep apnea (adult) (pediatric); Z86.16 Personal history of COVID-19; Z86.73 Personal history of transient ischemic attack (TIA), and cerebral infarction without residual deficits
CPT/HCPCS: 36589; 36416; 71045; 82962; 93005; J0360; J0690; J2704; J7030

== ENCOUNTER 2021-10-20 10:56 | Observation (INO) | payer MEDICARE, MEDICAID, SELFPAY ==
[2021-10-20] VITALS (19 sets, daily range): BP systolic 150–191; BP diastolic 72–85; PULSE 68–100; RESP 17–21; TEMP 36.6–36.7; O2SAT 90–96; BMI 31.6
--- NOTE | 2021-10-20 11:03 | XRR_ITS ---
PROCEDURE INFORMATION: Exam: XR Chest Exam date and time: 10/20/2021 11:12 AM Age: 56 years old Clinical indication: Dyspnea TECHNIQUE: Imaging protocol: XR of the chest. Views: 1 view. Total images: 1 COMPARISON: CR XR chest 1V portable [id number] 10/20/2021 9:40 AM FINDINGS: Lungs: Pulmonary vascular congestion improved. Stable bilateral pleuroparenchymal disease. Pleural spaces: No pneumothorax. Heart/Mediastinum: Cardiomegaly. Bones/joints: Osseous structures are unchanged from the prior exam. Organs: Surgical clips are present in the right upper quadrant which are suggestive of prior cholecystectomy. XR/XR chest 1V portable [id number] IMPRESSION: 1. Cardiomegaly with improved pulmonary vascular congestion. 2. Stable bilateral pleuroparenchymal disease.
--- NOTE | 2021-10-20 11:03 | ECG_ITS ---
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 Measurements Intervals [place] Rate: 70 P: -20 [place]: 208 QRS: -68 QRSD: 102 T: 52 QT: 430 QTc: 464 Interpretive Statements SINUS RHYTHM LEFT AXIS DEVIATION [QRS AXIS < -30] POSSIBLE ANTERIOR MYOCARDIAL INFARCTION , PROBABLY OLD [30 ms Q WAVE IN V3/V4, OR R < 0.2 mV IN V4] Compared to ECG 10/20/2021 09:34:08 No significant changes Electronically Signed On 10-20-2021 17:36:52 CDT by Soraya Ignacio M.D. [id number]
--- NOTE | 2021-10-20 11:13 | W.ED.GENADLT ---
HPI - General Adult General: Chief complaint: Shortness of Breath/Dyspnea Stated complaint: sob Time Seen by Provider: 10/20/21 11:03 History of Present Illness: 56-year-old lady with complex past medical history including hypertension, hyperlipidemia, CHF, CKD/end-stage renal disease on hemodialysis Wednesday, history of thyroid disorder, CAD who recently underwent chemo dialysis catheter removal earlier this morning by Dr. Still presenting to the emergency room with 2 days of shortness of breath. Patient tells me yesterday night she began feeling short of breath that has worsened today. Denies any cough, runny nose, sore throat, fever or chills. Patient denies any pleuritic chest pain, exertional chest pain or chest pain at rest. Patient tells me that she feels lightheaded this morning even prior to the surgery and is worried that she may pass out. Patient reports mild nausea but denies any vomiting, diarrhea, melena/hematochezia, abdominal complaints, or complaints at this time. Patient denies any complication from her hemodialysis catheter removal. Last hemodialysis was through the left AV fistula on Wednesday. Onset:yesterday night Duration:ongoing Location:home Severity:moderate Associated symptoms: Reports dyspnea; Deny chest pain, nausea, rash, palpitations or vomiting Review of Systems Const: Denies: fever(s) or chills Eyes: Denies: change in vision ENMT: Denies: mouth pain Card: Denies: chest pain or palpitations Resp: Reports: dyspnea; Denies: non-productive cough GI: Denies: abdominal pain, nausea, vomiting or diarrhea : Denies: dysuria Musc: Denies: extremity pain Skin/Breast: Denies: rash or new lesions Neuro: Reports: other (+light-headedness); Denies: weakness in extremities Psych: Reports: other (Normal mood) Refugio/Lymph: Denies: easy bruising PFSH ED PFSH: Medical History Adjustment disorder with mixed disturbance of emotions and conduct Anemia in chronic kidney disease Anxiety BPPV (benign paroxysmal positional vertigo) CAD (coronary artery disease) Carotid stenosis 04/2020: Right < 50%, Left near 70% Chronic diastolic CHF (congestive heart failure) 12/2020 EF 55%, grade II/IV diastolic dysfunction Chronic kidney disease Chronic left sacroiliac joint pain Claustrophobia Diabetes mellitus Diabetes mellitus, with long-term current use of insulin Diverticulitis Elevated troponin End stage renal disease ESBL (extended spectrum beta-lactamase) producing bacteria infection ESRD (end stage renal disease) on dialysis DAILY (generalized anxiety disorder) Gastroparesis GERD (gastroesophageal reflux disease) Gram-negative bacteremia Hemodialysis catheter dysfunction HTN (hypertension) Hyperlipidemia Hypothyroidism Hypoxemia Major depression, recurrent Mixed dyslipidemia DOROTEO on CPAP PAD (peripheral artery disease) Partial nontraumatic amputation of left foot (~06/2019) Peripheral vascular disease Peritonitis associated with peritoneal dialysis Phantom pain Pneumonia due to COVID-19 virus (~12/2020) Suicidal ideation TIA (transient ischemic attack) Vitamin D deficiency Surgical History AV (arteriovenous fistula) (~10/2020) H/O hysterectomy with oophorectomy History of appendectomy History of cataract surgery History of heart artery stent PCI to LAD, done in [place], [place] 10/2018 ENRIQUE to mid LAD at [facility] 04/2020 History of hysterectomy History of left heart catheterization 04/2020 Findings: 1. There is severe coronary artery disease. 2. FFR of mid LAD was 0.76. 3. Severe OM 2 stenosis. However this is a small sized distal vessel. 4. Mid Left Anterior Descending Coronary Artery was treated with Balloon and Drug Eluting Stent History of right below knee amputation Peritoneal dialysis catheter in place Removed due to recurrent peritonitis S/P cholecystectomy S/P PICC central line placement (~2019) Status post amputation of toe Family History Denies family history of CAD (coronary artery disease) Clotting disorder Dementia Bleeding disorder Social History Smoking and tobacco status: never smoked Alcohol intake: never Household members: spouse and family History of recent travel: No Physical Exam Const: COMMON NORMALS: alert HENMT: COMMON NORMALS: atraumatic HEAD & SCALP: atraumatic MOUTH: moist mucous membranes not abnormal Eye: COMMON NORMALS: EOMs intact bilaterally and conjunctivae normal CONJUNCTIVA: Yes conjunctivae normal Neck/C-Spine: COMMON NORMALS: full ROM and supple Resp: COMMON NORMALS: normal respiratory effort OTHER: +coarse breath sounds and fine crackles b/l Cardio: COMMON NORMALS: regular rate RATE: regular rate GI: COMMON NORMALS: Soft to palpation and non-tender PALPATION: Yes Soft to palpation OTHER: No focal TTP. NO guarding rebound, guarding, rigidity. Extremity: COMMON NORMALS: full ROM OTHER: R BKA no lower extremity edema b/l Neuro: SENSORIUM/ORIENTATION: Yes alert MOTOR EXAM: No Abnormal motor strength present and Other motor observations present (no focal motor deficits) Psych: COMMON NORMALS: speech normal SPEECH: Yes normal speech MOOD & AFFECT: Yes euthymic mood Skin: NARRATIVE SKIN EXAM: HD cathether removal site dry/clean/intact Course Vital Signs: Vital signs: Vital Signs Temperature 98 F 10/20/21 11:01 Pulse Rate 69 10/20/21 11:40 Respiratory Rate 20 H 10/20/21 11:40 Blood Pressure 163/74 10/20/21 11:40 Pulse Oximetry 92 10/20/21 11:40 MDM - General Adult Medical Decision Making 56-year-old lady with complex past medical history including hypertension, hyperlipidemia, CHF, CKD/end-stage renal disease on hemodialysis Wednesday (last dialysis), history of thyroid disorder, CAD, recent HD cathether removal earlier this AM presenting with 2 days of dyspnea. On exam, patient has coarse breath sounds bilaterally. Patient was noted to be satting at 92 to 94% on room air with no increased work of breathing. Rest of exam within normal limit. X-ray chest showed similar parenchymal disease compared to before. Patient noted to have creatinine of six-point similar to baseline. Patient is due for dialysis 130 today. However upon getting up, patient feels short of breath and lightheaded. CTA chest negative for PE. Dr. Rivas has been consulted for dialysis inpatient dialysis with close monitoring. Disposition: admission Lab Data : 10/20/21 11:50 10/20/21 11:50 Radiology Impressions Chest X-Ray 10/20/21 11:03 IMPRESSION: 1. Cardiomegaly with improved pulmonary vascular congestion. 2. Stable bilateral pleuroparenchymal disease. Chest CTA 10/20/21 12:48 IMPRESSION: Some images degraded by breathing artifact. 1. No evidence of pulmonary embolus. Distal pulmonary arteries not well evaluated due to shallow inspiration and breathing artifact. 2. Small to moderate bilateral pleural effusions with compressive atelectasis in the lung bases. This is progressed compared to the CT September 03, 2021. Laboratory Results WBC 4.9 10^3/uL (4.0-10.0) 10/20/21 11:50 RBC 3.55 10^6/uL (4.1-5.3) L 10/20/21 11:50 Hgb 11.4 g/dL (11.5-15.3) L 10/20/21 11:50 Hct 36.2 % (37.0-47.0) L 10/20/21 11:50 MCV 102.0 fl (81-99) H 10/20/21 11:50 MCH 32.1 pg (28.0-34.0) 10/20/21 11:50 MCHC 31.5 g/dL (30.0-36.0) 10/20/21 11:50 RDW 14.6 % (12.1-15.1) 10/20/21 11:50 Plt Count 156 10^3/cmm (130-400) 10/20/21 11:50 MPV 11.3 fL (7.4-10.4) H 10/20/21 11:50 Neut % (Auto) 78.5 % 10/20/21 11:50 Lymph % (Auto) 7.7 % 10/20/21 11:50 [facility] % (Auto) 6.9 % 10/20/21 11:50 Eos % (Auto) 6.1 % 10/20/21 11:50 Baso % (Auto) 0.6 % 10/20/21 11:50 Neut # (Auto) 3.87 10^3/uL (1.8-7.7) 10/20/21 11:50 Lymph # (Auto) 0.4 10^3/uL (0.8-4.8) L 10/20/21 11:50 [facility] # (Auto) 0.3 10^3/uL (0.2-0.9) 10/20/21 11:50 Eos # (Auto) 0.3 10^3/uL (0.0-0.8) 10/20/21 11:50 Baso # (Auto) 0.0 10^3/uL (0.0-0.1) 10/20/21 11:50 Nucleated RBC % (auto) 0 % 10/20/21 11:50 Nucleated RBCs # 0.0 /100WBC 10/20/21 11:50 Sodium 138 mmol/L (136-145) 10/20/21 11:50 Potassium 4.0 mmol/L (3.5-5.1) 10/20/21 11:50 Chloride 100 mmol/L (98-107) 10/20/21 11:50 Carbon Dioxide 21 mmol/L (22-29) L 10/20/21 11:50 Anion Gap 21.0 (5-19) H 10/20/21 11:50 BUN 35 mg/dL (6-20) H 10/20/21 11:50 Creatinine 6.8 mg/dL (0.5-0.9) H* 10/20/21 11:50 GFR Calculation 6.3 mL/min (90-130) L 10/20/21 11:50 Glucose 101 mg/dL (65-115) 10/20/21 11:50 Calculated Osmolality 294 mOsm/kg (285-295) 10/20/21 11:50 Calcium 6.5 mg/dL (8.5-10.5) L 10/20/21 11:50 Troponin T Baseline 95 ng/L (0-10) H 10/20/21 11:50 NT-Pro-B Natriuret Pep 52873 pg/mL (0-125) H 10/20/21 11:50 Imaging Data Other Imaging: Radiologist's impression: [address] [address] XRay Report Signed Patient: Rizwana Herzog Unit #: [id number] : 1965 Age/Sex: 56 / F ADM Date: 10/20/21 Loc: ER Room/Bed: Attending Dr: Ordering Provider/Ordering MD: Abena Bender MD Date of Service: 10/20/21 Procedure(s): XR chest 1V portable [id number] Accession Number(s): [id number] Report Number: [id number] PROCEDURE INFORMATION: Exam: XR Chest Exam date and time: 10/20/2021 11:12 AM Age: 56 years old Clinical indication: Dyspnea TECHNIQUE: Imaging protocol: XR of the chest. Views: 1 view. Total images: 1 COMPARISON: CR XR chest 1V portable [id number] 10/20/2021 9:40 AM FINDINGS: Lungs: Pulmonary vascular congestion improved. Stable bilateral pleuroparenchymal disease. Pleural spaces: No pneumothorax. Heart/Mediastinum: Cardiomegaly. Bones/joints: Osseous structures are unchanged from the prior exam. Organs: Surgical clips are present in the right upper quadrant which are suggestive of prior cholecystectomy. XR/XR chest 1V portable [id number] IMPRESSION: 1. Cardiomegaly with improved pulmonary vascular congestion. 2. Stable bilateral pleuroparenchymal disease. ? Dictated By: Jacob Ghotra MD Signed By: Jacob Ghotra MD Signed Date/Time: 10/20/211124 DD/ 11 Launch?Image [facility] [place] [place] [address] [facility] [place] [address] CT Scan Report Signed Patient: Rizwana Herzog Unit #: [id number] : 1965 Age/Sex: 56 / F ADM Date: 10/20/21 Loc: ER Room/Bed: Attending Dr: Ordering Provider/Ordering MD: Abena Bender MD Date of Service: 10/20/21 Procedure(s): CT angio chest PE protcl [id number] Accession Number(s): [id number] Report Number: [id number] WS: [id number] CTA OF THE CHEST WITH PULMONARY EMBOLISM PROTOCOL TECHNIQUE: High-resolution contrast enhanced CTA of the chest with coronal and sagittal reformatted images with pulmonary embolism protocol. MIP images are also reviewed. CLINICAL INFORMATION: dyspnea, light-headedness COMPARISON: CTA September 03, 2021 DLP: 437.[address] [facility] at [facility] [place] use at least one of these dose optimization techniques: automated exposure control; mA and/or kV adjustment per patient size (includes targeted exams where dose is matched to clinical indication); or iterative reconstruction. FINDINGS: Proximal main pulmonary arteries are normal. Normal visualized segmental pulmonary arteries. Distal pulmonary arteries not well evaluated due to breathing artifact. Small to moderate bilateral pleural effusions with extensive compressive atelectasis in the lung bases. Shallow inspiration. Cardiomegaly. Normal caliber thoracic aorta. Reactive anterior mediastinal and peribronchial lymph nodes. Interstitial edema in the lung bases. Adrenal glands appear normal. Splenic artery calcification. Normal GE junction. Coronary calcification. No axillary lymphadenopathy. Diffuse body wall anasarca. CT/CT angio chest PE protcl [id number] IMPRESSION: Some images degraded by breathing artifact. ? 1.? No evidence of pulmonary embolus. Distal pulmonary arteries not well evaluated due to shallow inspiration and breathing artifact. 2.? Small to moderate bilateral pleural effusions with compressive atelectasis in the lung bases. This is progressed compared to the CT September 03, 2021. ? Dictated By: Hunter Senior MD Signed By: Hunter Senior MD Signed Date/Time: 10/20/21 1350 DD/ 1344 Discharge Plan Discharge Patient Disposition: Admitted As Inpatient Clinical Impression: CHF exacerbation, ESRD on hemodialysis, Light headedness Condition: Stable Coding Level of Care Code ED Sales Professional Bilingual for Maris Fwd Exam Comprehensive
--- NOTE | 2021-10-20 11:17 | PC.NURSE ---
REPORT RECEIVED FROM [facility]PS NURSES. SILVER RING AND PHONE ARE IN CLEAR PATIENT BELONGING BAG.
[2021-10-20] MEDS: ondansetron 2 mg/ML SDV 2 mL 4 MG IVP ×2 (11:32→21:43)
[2021-10-20 11:57] LABS: Basophils % 0.6 %; Eosinophils # 0.3 10^3/uL (0.0-0.8); Eosinophils % 6.1 %; Hematocrit 36.2 % (37.0-47.0); Hemoglobin 11.4 g/dL (11.5-15.3); Lymphocytes # 0.4 10^3/uL (0.8-4.8); Lymphocytes % 7.7 %; Mean Corpuscular HGB Conc 31.5 g/dL (30.0-36.0); Mean Corpuscular Hemoglobin 32.1 pg (28.0-34.0); Mean Platelet Volume 11.3 fL (7.4-10.4); Monocytes # 0.3 10^3/uL (0.2-0.9); Monocytes % 6.9 %; Neutrophils # 3.87 10^3/uL (1.8-7.7); Neutrophils % 78.5 %; Nucleated Red Blood Cells % 0 %; Platelet Count 156 10^3/cmm (130-400); Red Blood Count 3.55 10^6/uL (4.1-5.3); Red Cell Distribution Width 14.6 % (12.1-15.1); White Blood Count 4.9 10^3/uL (4.0-10.0)
[2021-10-20 12:18] LABS: Troponin(5th) Baseline 95 ng/L (0-10)
[2021-10-20 12:27] LABS: Blood Urea Nitrogen 35 mg/dL (6-20); Calcium 6.5 mg/dL (8.5-10.5); Carbon Dioxide 21 mmol/L (22-29); Chloride 100 mmol/L (98-107); Glomerular Filtration Rate 6.3 mL/min (90-130); Glucose 101 mg/dL (65-115); NT Pro B Type Natriuretic Pept 13080 pg/mL (0-125); Osmolality Calculated 294 mOsm/kg (285-295); Sodium 138 mmol/L (136-145)
--- NOTE | 2021-10-20 12:48 | CT_ITS ---
WS: [id number] CTA OF THE CHEST WITH PULMONARY EMBOLISM PROTOCOL TECHNIQUE: High-resolution contrast enhanced CTA of the chest with coronal and sagittal reformatted i mages with pulmonary embolism protocol. MIP images are also reviewed. CLINICAL INFORMATION: dyspnea, light-headedness COMPARISON: CTA September 03, 2021 DLP: 437.[address] scans at [facility] use at least one of these dose optimization techniques: automated e xposure control; mA and/or kV adjustment per patient size (includes targeted exams where dose is matc hed to clinical indication); or iterative reconstruction. FINDINGS: Proximal main pulmonary arteries are normal. Normal visualized segmental pulmonary arteries . Distal pulmonary arteries not well evaluated due to breathing artifact. Small to moderate bilateral pleural effusions with extensive compressive atelectasis in the lung base s. Shallow inspiration. Cardiomegaly. Normal caliber thoracic aorta. Reactive anterior mediastinal an d peribronchial lymph nodes. Interstitial edema in the lung bases. Adrenal glands appear normal. Splenic artery calcification. Normal GE junction. Coronary calcificatio n. No axillary lymphadenopathy. Diffuse body wall anasarca. CT/CT angio chest PE protcl [id number] IMPRESSION: Some images degraded by breathing artifact. 1. No evidence of pulmonary embolus. Distal pulmonary arteries not well evalua eb due to shallow inspiration and breathing artifact. 2. Small to moderate bilateral pleural effusions with compressive atelectasis in the lung bases. This is progressed compared to the CT September 03, 2021.
--- NOTE | 2021-10-20 13:03 | ECG_ITS ---
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 Measurements Intervals [place] Rate: 74 P: -25 NH: 202 QRS: -55 QRSD: 94 T: 63 QT: 413 QTc: 461 Interpretive Statements SINUS RHYTHM LEFT AXIS DEVIATION [QRS AXIS < -30] POSSIBLE ANTERIOR MYOCARDIAL INFARCTION , PROBABLY OLD [30 ms Q WAVE IN V3/V4, OR R < 0.2 mV IN V4] Compared to ECG 10/20/2021 11:18:52 No significant changes Electronically Signed On 10-20-2021 17:41:18 CDT by Soraya Ignacio M.D. [id number]
--- NOTE | 2021-10-20 13:08 | PC.PHAR ---
PT UNABLE TO VERIFY. MEDS VERIFIED USING EXTERNAL MED LIST AND [facility]. PT STATES SHE ONLY FILLS AT [facility].
[2021-10-20] MEDS: iodixanol 320 mg/mL 100mL Btl IV (13:33)
--- NOTE | 2021-10-20 13:49 | P.HP_ITS ---
Providers/Chief Complaint Primary Care Provider: Jacob Sharp DO Chief Complaint: sob History of Present Illness Rizwana Herzog is a 56 year old female with past medical history of hypertension, diabetes, end-stage renal disease on dialysis Wednesday, gastroparesis, AKA, congestive heart failure with normal EF, chronic hypoxia on home oxygen, peripheral artery disease, coronary artery disease status post PCI and drug-eluting stent 2019 presented to the hospital today with complaints of lightheadedness and shortness of breath. She is due for dialysis today and recently had her dialysis catheter removed few hours ago. She was here in ambulatory surgery today. She became really short of breath and therefo re was sent to the ER. She has been feeling shortness of breath for the last 2 days prior to dialysis catheter removal as well. She does not endorse eating out at a restaurant and was compliant to her diet. She was discharged from the hospital 09/26/2021 and has been following up with cardiology since discharge. She also saw her primary care doctor last week. She says ever since her dialysis catheter was removed she started feeling short of breath. Denies chest pain, abdominal pain, nausea, vomiting or diarrhea, constipation. Right now and see patient does have conversational dyspnea and is short of breath to the point where she cannot really give me a history. She is saturating 89% on room air. She answers in very short phrases. All other review of systems are negative. She answers in yes and no questions. ED course: On arrival to ER blood pressure 163/74 requires 2020, pulse 69, temperature 98, pulse ox 92%. She did have coarse breath sounds bilaterally and she was saturating 90 to 94% on room air with no increased work of breathing. Chest x-ray was done which showed similar parenchymal disease compared to baseline. Creatinine 6.8 which is also similar to baseline. She was getting shortness of breath on exertion and lightheadedness. CTA done which ruled out PE. Nephrology was consulted for inpatient dialysis with close monitoring. Hospitalist was called for admission. Medications/Allergies Home Medications Medication Instructions Recorded Confirmed Last Taken Type aspirin 81 mg chewable tablet 81 mg PO DAILY@08 06/25/19 10/20/21 10/18/21 History omega 5-wzf-zpd-fish oil 300 1 cap PO BID@01/17/20 10/20/21 10/19/21 History mg-1,000 mg capsule,delayed release (Fish Oil) nitroglycerin 0.4 mg sublingual 0.4 mg SUBLINGUAL Q5M PRN #25 tab 03/26/20 10/20/21 04/18/20 Rx tablet cholecalciferol (vitamin D3) 25 25 mcg PO DAILY@08 1210/20/21 10/19/21 History mcg (1,000 unit) tablet (Vitamin D3) clonidine HCl 0.1 mg tablet 0.1 mg PO BID #60 tab 01/03/21 10/20/21 10/19/21 Rx pantoprazole 40 mg tablet,delayed 40 mg PO DAILY@08 #90 tab 04/02/21 10/20/21 10/19/21 Rx release atorvastatin 40 mg tablet 40 mg PO DAILY@20 #90 tab 04/28/21 10/20/21 10/19/21 Rx pen needle, diabetic 32 gauge x #100 ea 06/17/21 10/20/21 Unknown Rx (ReliOn Pen [place]) amlodipine 10 mg tablet 10 mg PO DAILY 30 Days #30 tab 07/22/21 10/20/21 10/19/21 Rx escitalopram oxalate 20 mg tablet 20 mg PO DAILY 07/22/21 10/20/21 10/19/21 History furosemide 40 mg tablet 40 mg PO QAM #30 tab 08/12/21 10/20/21 10/19/21 Rx PROSTHETIC SUPPLIES #1 ea 08/21/21 10/20/21 Unknown Rx levothyroxine 150 mcg tablet 150 mcg PO QAM 09/02/21 10/20/21 10/20/21 History (Euthyrox) ondansetron HCl 8 mg tablet 8 mg PO Q8H PRN 09/02/21 10/20/21 10/13/21 History vitamin B complex-vitamin C 100 1 tab PO DAILY 09/02/21 10/20/21 10/19/21 History mg-folic acid 1 mg tablet (Dialyvite) insulin glargine 100 unit/mL (3 5 unit (0.05 mL) SUBCUT BID@08,20 09/05/21 10/20/21 10/19/21 Rx mL) subcutaneous pen (Lantus #15 ml Solostar U-100 Insulin) glucosamine sulf dipot 1 cap PO DAILY 09/22/21 10/20/21 10/19/21 History chlr,msm,chond 550 mg-C 30 mg-janet 1 mg capsule (Glucosamine Chondroitin) carvedilol 3.125 mg tablet 3.125 mg PO BID #60 tab 09/26/21 10/20/21 10/20/21 Rx hydralazine 25 mg tablet 25 mg PO TID #90 tab 09/26/21 10/20/21 10/19/21 Rx clonazepam 0.25 mg disintegrating 0.25 mg PO BID PRN #30 tab 10/14/21 10/20/21 10/19/21 Rx tablet cyclobenzaprine 10 mg tablet 10 mg PO TID PRN #30 tab 10/14/21 10/20/21 10/19/21 Rx oxycodone 5 mg tablet 5 mg PO Q12H 30 Days #60 tab 10/14/21 10/20/21 10/19/21 Rx clopidogrel 75 mg tablet 75 mg PO DAILY 10/20/21 10/20/21 Unknown History isosorbide mononitrate 60 mg 60 mg PO QAM 10/20/21 10/20/21 Unknown History tablet,extended release 24 hr Allergies Allergy/AdvReac Type Severity Reaction Status Date / Time metformin [From Glucophage] Allergy Severe Unknown Verified 10/20/21 13:09 venlafaxine [From Effexor] Allergy Severe ADR-Shakine Verified 10/20/21 13:09 ss PFSH Acute PFSH: Medical History Adjustment disorder with mixed disturbance of emotions and conduct Anemia in chronic kidney disease Anxiety BPPV (benign paroxysmal positional vertigo) CAD (coronary artery disease) Carotid stenosis 04/2020: Right < 50%, Left near 70% Chronic diastolic CHF (congestive heart failure) 12/2020 EF 55%, grade II/IV diastolic dysfunction Chronic kidney disease Chronic left sacroiliac joint pain Claustrophobia Diabetes mellitus Diabetes mellitus, with long-term current use of insulin Diverticulitis Elevated troponin End stage renal disease ESBL (extended spectrum beta-lactamase) producing bacteria infection ESRD (end stage renal disease) on dialysis DAILY (generalized anxiety disorder) Gastroparesis GERD (gastroesophageal reflux disease) Gram-negative bacteremia Hemodialysis catheter dysfunction HTN (hypertension) Hyperlipidemia Hypothyroidism Hypoxemia Major depression, recurrent Mixed dyslipidemia DOROTEO on CPAP PAD (peripheral artery disease) Partial nontraumatic amputation of left foot (~06/2019) Peripheral vascular disease Peritonitis associated with peritoneal dialysis Phantom pain Pneumonia due to COVID-19 virus (~12/2020) Suicidal ideation TIA (transient ischemic attack) Vitamin D deficiency Surgical History AV (arteriovenous fistula) (~10/2020) H/O hysterectomy with oophorectomy History of appendectomy History of cataract surgery History of heart artery stent PCI to LAD, done in [place], [place] 10/2018 ENRIQUE to mid LAD at [facility] 04/2020 History of hysterectomy History of left heart catheterization 04/2020 Findings: 1. There is severe coronary artery disease. 2. FFR of mid LAD was 0.76. 3. Severe OM 2 stenosis. However this is a small sized distal vessel. 4. Mid Left Anterior Descending Coronary Artery was treated with Balloon and Drug Eluting Stent History of right below knee amputation Peritoneal dialysis catheter in place Removed due to recurrent peritonitis S/P cholecystectomy S/P PICC central line placement (~2019) Status post amputation of toe Family History Denies family history of CAD (coronary artery disease) Clotting disorder Dementia Bleeding disorder Social History Smoking and tobacco status: never smoked Alcohol intake: never Household members: spouse and family History of recent travel: No Vitals/I&O/Wt Last Vital Signs Temp 98 F 10/20/21 11:01 Pulse 69 10/20/21 11:40 Resp 20 H 10/20/21 11:40 BP 163/74 10/20/21 11:40 Pulse Ox 92 10/20/21 11:40 Weight last 48 hrs Weight 86.183 kg Physical Exam Narrative: General: Alert oriented x3, patient seen sitting up in bed appearing dyspneic. She also has conversational dyspnea at this time. Saturating 89% on room air. HEENT: Normocephalic, atraumatic, EOMI, conversational dyspnea present, mild respiratory distress present. Cardio: Regular rate rhythm, normal S1-S2, S3 present. Respiratory: Coarse breath sounds bilaterally with mild crackles at bases, no wheezes GI: Abdomen soft, nontender, nondistended, bowel sounds + Behavior: Appropriate and cooperative Extremities: Trace edema bilateral lower extremities no cyanosis noted. Data : 10/21/21 05:13 10/21/21 05:13 A&P Assessment and plan (1) CHF exacerbation: Status: Acute (2) Light headedness: Status: Acute (3) Lumbar back pain: Status: Acute (4) HTN (hypertension): Status: Acute (5) Acute and chronic respiratory failure: Status: Acute (6) Hypothyroidism: Status: Chronic Qualifiers: Hypothyroidism type: acquired Qualified Code(s): E03.9 - Hypothyroidism, unspecified (7) Carotid stenosis: Status: Chronic Qualifiers: Laterality: bilateral Qualified Code(s): I65.23 - Occlusion and stenosis of bilateral carotid arteries (8) CKD (chronic kidney disease) stage 5, GFR less than 15 ml/min: Status: Chronic (9) ESRD on hemodialysis: Status: Acute Plan #Shortness of breath, lightheadedness, most likely secondary to hypoxia and fluid overload. #Hypertension #End-stage renal disease dialysis Wednesday #Diabetes mellitus #Anemia of chronic disease #Mild thrombocytopenia ? Patient is a dialysis patient Wednesday and was supposed to go for dialysis today at 130. She presented with lightheadedness and shortness of breath. CTA ruled out PE. Nephrology has been consulted. ? Placed on telemetry ? Continue home medications for hypertension ? Blood sugars are on the lower side. We will hold home Lantus. ? Check procalcitonin, I dont believe patient has a pneumonia. -Last echo August 2021 was normal. No diastolic defects or systolic defects, valves normal. ? I will check ABG and place patient on BiPAP. ? DuoNeb every 6 hour as needed ? Plan to dialyze today. Full code Attestations Medical Necessity Statement*: I anticipate greater than 48-hour stay in the hospital due to shortness of breath. Coding Level of Care Code Acute Dividend Deposit Entry Clerk for Chg Fwd Diagnoses CHF exacerbation I50.9 Light headedness R42 Lumbar back pain M54.50 HTN (hypertension) I10 Acute and chronic respiratory failure J96.20 Hypothyroidism E03.9 Hypothyroidism type: acquired Carotid stenosis I65.23 Laterality: bilateral CKD (chronic kidney disease) stage 5, GFR less than 15 ml/min N18.5 ESRD on hemodialysis N18.6; Z99.2
--- NOTE | 2021-10-20 13:51 | PM.CONSULT ---
Providers/Reason For Consult Consulting Physician/Specialty*: christelle bullard md / telenephrology Reason for Consult*: ESRD care Requesting Physician: Dr Bender Primary Care Provider: Jacob Sharp DO History of Present Illness History of Present Illness Rizwana Herzog is a 56 year old female with past medical history of hypertension, diabetes, end-stage renal disease, on dialysis, gastroparesis, AKA, congestive heart failure with normal EF, chronic hypoxia, on home oxygen, peripheral arterial disease, coronary artery disease, previous cardiac catheterization in 2019 with placement of drug-eluting stent, recent normal stress test. Pt has had multiple recent hospitalizations for SOB, fluid overload. Review of Systems Narrative: weak, sob, anasarca, increased weight, IZAGUIRRE, lethargic Rest of ROS is negative Medications/Allergies Home Medications Medication Instructions Recorded Confirmed Last Taken Type aspirin 81 mg chewable tablet 81 mg PO DAILY@08 06/25/19 10/20/21 10/18/21 History omega 6-iin-hie-fish oil 300 1 cap PO BID@01/17/20 10/20/21 10/19/21 History mg-1,000 mg capsule,delayed release (Fish Oil) nitroglycerin 0.4 mg sublingual 0.4 mg SUBLINGUAL Q5M PRN #25 tab 03/26/20 10/20/21 04/18/20 Rx tablet cholecalciferol (vitamin D3) 25 25 mcg PO DAILY@08 05/14/20 10/20/21 10/19/21 History mcg (1,000 unit) tablet (Vitamin D3) clonidine HCl 0.1 mg tablet 0.1 mg PO BID #60 tab 01/03/21 10/20/21 10/19/21 Rx pantoprazole 40 mg tablet,delayed 40 mg PO DAILY@08 #90 tab 04/02/21 10/20/21 10/19/21 Rx release atorvastatin 40 mg tablet 40 mg PO DAILY@20 #90 tab 04/28/21 10/20/21 10/19/21 Rx pen needle, diabetic 32 gauge x #100 ea 06/17/21 10/20/21 Unknown Rx (ReliOn Pen [place]) amlodipine 10 mg tablet 10 mg PO DAILY 30 Days #30 tab 07/22/21 10/20/21 10/19/21 Rx escitalopram oxalate 20 mg tablet 20 mg PO DAILY 07/22/21 10/20/21 10/19/21 History furosemide 40 mg tablet 40 mg PO QAM #30 tab 08/12/21 10/20/21 10/19/21 Rx PROSTHETIC SUPPLIES #1 ea 08/21/21 10/20/21 Unknown Rx levothyroxine 150 mcg tablet 150 mcg PO QAM 09/02/21 10/20/21 10/20/21 History (Euthyrox) ondansetron HCl 8 mg tablet 8 mg PO Q8H PRN 09/02/21 10/20/21 10/13/21 History vitamin B complex-vitamin C 100 1 tab PO DAILY 09/02/21 10/20/21 10/19/21 History mg-folic acid 1 mg tablet (Dialyvite) insulin glargine 100 unit/mL (3 5 unit (0.05 mL) SUBCUT BID@08,20 09/05/21 10/20/21 10/19/21 Rx mL) subcutaneous pen (Lantus #15 ml Solostar U-100 Insulin) glucosamine sulf dipot 1 cap PO DAILY 09/22/21 10/20/21 10/19/21 History chlr,msm,chond 550 mg-C 30 mg-janet 1 mg capsule (Glucosamine Chondroitin) carvedilol 3.125 mg tablet 3.125 mg PO BID #60 tab 09/26/21 10/20/21 10/20/21 Rx hydralazine 25 mg tablet 25 mg PO TID #90 tab 09/26/21 10/20/21 10/19/21 Rx clonazepam 0.25 mg disintegrating 0.25 mg PO BID PRN #30 tab 10/14/21 10/20/21 10/19/21 Rx tablet cyclobenzaprine 10 mg tablet 10 mg PO TID PRN #30 tab 10/14/21 10/20/21 10/19/21 Rx oxycodone 5 mg tablet 5 mg PO Q12H 30 Days #60 tab 10/14/21 10/20/21 10/19/21 Rx clopidogrel 75 mg tablet 75 mg PO DAILY 10/20/21 10/20/21 Unknown History isosorbide mononitrate 60 mg 60 mg PO QAM 10/20/21 10/20/21 Unknown History tablet,extended release 24 hr Allergies Allergy/AdvReac Type Severity Reaction Status Date / Time metformin [From Glucophage] Allergy Severe Unknown Verified 10/20/21 13:09 venlafaxine [From Effexor] Allergy Severe ADR-Shakine Verified 10/20/21 13:09 ss PFSH Acute PFSH: Medical History Adjustment disorder with mixed disturbance of emotions and conduct Anemia in chronic kidney disease Anxiety BPPV (benign paroxysmal positional vertigo) CAD (coronary artery disease) Carotid stenosis 04/2020: Right < 50%, Left near 70% Chronic diastolic CHF (congestive heart failure) 12/2020 EF 55%, grade II/IV diastolic dysfunction Chronic kidney disease Chronic left sacroiliac joint pain Claustrophobia Diabetes mellitus Diabetes mellitus, with long-term current use of insulin Diverticulitis Elevated troponin End stage renal disease ESBL (extended spectrum beta-lactamase) producing bacteria infection ESRD (end stage renal disease) on dialysis DAILY (generalized anxiety disorder) Gastroparesis GERD (gastroesophageal reflux disease) Gram-negative bacteremia Hemodialysis catheter dysfunction HTN (hypertension) Hyperlipidemia Hypothyroidism Hypoxemia Major depression, recurrent Mixed dyslipidemia DOROTEO on CPAP PAD (peripheral artery disease) Partial nontraumatic amputation of left foot (~06/2019) Peripheral vascular disease Peritonitis associated with peritoneal dialysis Phantom pain Pneumonia due to COVID-19 virus (~12/2020) Suicidal ideation TIA (transient ischemic attack) Vitamin D deficiency Surgical History AV (arteriovenous fistula) (~10/2020) H/O hysterectomy with oophorectomy History of appendectomy History of cataract surgery History of heart artery stent PCI to LAD, done in [place], [place] 10/2018 ENRIQUE to mid LAD at [facility] 04/2020 History of hysterectomy History of left heart catheterization 04/2020 Findings: 1. There is severe coronary artery disease. 2. FFR of mid LAD was 0.76. 3. Severe OM 2 stenosis. However this is a small sized distal vessel. 4. Mid Left Anterior Descending Coronary Artery was treated with Balloon and Drug Eluting Stent History of right below knee amputation Peritoneal dialysis catheter in place Removed due to recurrent peritonitis S/P cholecystectomy S/P PICC central line placement (~2019) Status post amputation of toe Family History Denies family history of CAD (coronary artery disease) Clotting disorder Dementia Bleeding disorder Social History Smoking and tobacco status: never smoked Alcohol intake: never Household members: spouse and family History of recent travel: No Vitals/I&O/Wt Last Vital Signs Temp 98 F 10/20/21 11:01 Pulse 69 10/20/21 11:40 Resp 20 H 10/20/21 11:40 BP 163/74 10/20/21 11:40 Pulse Ox 92 10/20/21 11:40 Weight last 48 hrs Weight 86.183 kg Physical Exam Narrative: obese, swollen, uncomfortable, using nc 02 vs noted heent- nc/at, eomi, anicteric neck supple lungs dull bases, crckles and wheezes b/l heart reg abd soft, nt, nd, + bs ext LUE AVF w/ thrill and bruit neuro- a,a, o x 3 Data : 10/20/21 11:50 10/20/21 11:50 A&P Assessment and plan (1) ESRD on hemodialysis: 56 yr old female 1/ ESRD- volume overload- HD now 3.5 hrs, remove 3.5 l, 3k bath 2/ Cardiology eval in past noted 3/ f/u Chest ct scan 4/ hgb okay 5/ monitor phos 6/ DM control 7/ HTN- should improve w/ HD seen and examined w/ RN- telehealth visit time spent 50 min informed consent for telehealth obtained from pt Status: Acute Plan see above Consult Attestations Medical Necessity Statement: volume overloaded/ htn, esrd Time Spent in Patient Care: Greater than 35 minutes (>than 50% of time spent in counselling and/or direct pt care on unit). Coding Level of Care Code Acute Banking Analyst for Yarelig Fwd Diagnoses ESRD on hemodialysis N18.6; Z99.2
[2021-10-20 15:10] LABS: Hepatitis B Surface AB 48.1 (11.5-1000); Hepatitis B Surface Antigen Non-Reactive (Nonreactive); Hepatitis C Virus Antibody Non-Reactive (Nonreactive)
[2021-10-20 15:35] LABS: ABG PH Result 7.33 (7.35-7.45); Alveolar-Arterial Oxygen Gradi 1.3 mmHg (5-10); Arterial Blood Gas Hematocrit 36.2 % (37-47); Base Excess ABG -1.7 mmol/L (-2.0-2.0); Blood Gas Sample Site Brachial, right; Blood Gas Sample Type Arterial; Carboxyhemoglobin 1.2 %THgb (0.4-20.1); HCO3 ABG 24.6 mmol/L (22-26); HGB O2 Sat 93.5 % (95-100); Ionized Calcium Level - ABG 0.9 mmol/L (1.1-1.4); Oxygen Device NC; Oxygen Saturation ABG 95.5; PO2 ABG 81.3 mmHg (80.0-100.0); Potassium Level - ABG 4.2 mmol/L (3.5-5.0); Total Hemoglobin 11.8 g/dL (12-16)
[2021-10-20 15:39] LABS: Troponin 5 2HR 83.61 ng/L (0-10)
--- NOTE | 2021-10-20 17:03 | ECG_ITS ---
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 Measurements Intervals [place] Rate: 69 P: -17 IL: 203 QRS: -46 QRSD: 93 T: 70 QT: 447 QTc: 480 Interpretive Statements SINUS RHYTHM LEFT AXIS DEVIATION [QRS AXIS < -30] POSSIBLE ANTERIOR MYOCARDIAL INFARCTION , OF INDETERMINATE AGE [30 ms Q WAVE IN V3/V4, OR R < 0.2 mV IN V4] Compared to ECG 10/20/2021 13:52:52 No significant changes Electronically Signed On 10-20-2021 17:40:34 CDT by Soraya Ignacio M.D. [id number]
[2021-10-20] MEDS: cyclobenzaprine 10 mg Tablet PO (20:28)
[2021-10-20] MEDS: hyDRALAzine 20 mg/mL INJ 1 mL 10 MG IVP (21:43)
[2021-10-20] MEDS: oxyCODONE 5 mg IR Tab/Cap PO (23:45)
[2021-10-21] VITALS (18 sets, daily range): BP systolic 106–187; BP diastolic 58–91; PULSE 59–81; RESP 14–18; TEMP 36.6–36.9; O2SAT 92–97
[2021-10-21] MEDS: cloNIDine 0.1 mg Tablet PO ×3 (00:31→22:24)
[2021-10-21] MEDS: atorvastatin 40 mg Tablet PO (00:32)
[2021-10-21] MEDS: carvedilol 3.125 mg Tablet PO ×3 (00:32→22:24)
[2021-10-21] MEDS: hyDRALAzine 25 mg Tablet PO ×2 (00:33→09:04)
[2021-10-21] MEDS: docusate sodium 100 mg Capsule PO ×2 (00:33→09:02)
[2021-10-21 05:24] LABS: Basophils % 0.4 %; Eosinophils # 0.3 10^3/uL (0.0-0.8); Eosinophils % 5.9 %; Hematocrit 34.5 % (37.0-47.0); Hemoglobin 10.7 g/dL (11.5-15.3); Lymphocytes # 0.3 10^3/uL (0.8-4.8); Lymphocytes % 6.3 %; Mean Corpuscular Hemoglobin 31.8 pg (28.0-34.0); Mean Corpuscular Volume 102.4 fl (81-99); Mean Platelet Volume 11.2 fL (7.4-10.4); Monocytes # 0.3 10^3/uL (0.2-0.9); Monocytes % 6.5 %; Neutrophils # 3.94 10^3/uL (1.8-7.7); Neutrophils % 80.5 %; Nucleated Red Blood Cells % 0 %; Platelet Count 151 10^3/cmm (130-400); Red Blood Count 3.37 10^6/uL (4.1-5.3); Red Cell Distribution Width 14.6 % (12.1-15.1); White Blood Count 4.9 10^3/uL (4.0-10.0)
[2021-10-21] MEDS: isosorbide mononitrate ER 60 mg Tablet PO (06:19)
[2021-10-21] MEDS: levothyroxine 150 mcg Tablet PO (06:19)
[2021-10-21] MEDS: FUROsemide 40 mg Tablet PO (06:19)
[2021-10-21 06:27] LABS: Alanine Aminotransferase 7 U/L (0-33); Albumin Level 3.7 g/dL (3.5-5.2); Alkaline Phosphatase 147 IU/L (35-105); Aspartate Amino Transferase 14 U/L (0-32); Blood Urea Nitrogen 21 mg/dL (6-20); Calcium 7.7 mg/dL (8.5-10.5); Carbon Dioxide 27 mmol/L (22-29); Chloride 100 mmol/L (98-107); Globulin 1.9 g/dL (1.3-4.6); Glomerular Filtration Rate 8.9 mL/min (90-130); Glucose 78 mg/dL (65-115); Magnesium 1.9 mg/dL (1.7-2.3); Osmolality Calculated 292 mOsm/kg (285-295); Phosphorus 4.2 mg/dL (2.5-4.5); Sodium 140 mmol/L (136-145); Total Bilirubin 0.6 mg/dL (0.15-1.2); Total Protein 5.6 g/dL (6.6-8.7)
[2021-10-21 06:28] LABS: Calcium 7.7 mg/dL (8.5-10.5)
[2021-10-21 06:33] LABS: Parathyroid Hormone 456.5 pg/mL (15-65)
[2021-10-21 06:41] LABS: 25 Hydroxy Vitamin D 36 ng/mL (30-100)
--- NOTE | 2021-10-21 07:07 | P.PN_ITS ---
Subjective Subjective: less sob after HD. still on cpap Medications: Reviewed: Yes Medication Review Details: Current Medications Amlodipine Besylate (Amlodipine 10 Mg Tablet) 10 mg PO DAILY [facility] Aspirin (Aspirin 81 Mg Chew Tablet) 81 mg PO DAILY@08 [facility] Atorvastatin Calcium (Atorvastatin 40 Mg Tablet) 40 mg PO DAILY@20 [facility] Last Admin: 10/21/21 00:32 Dose: 40 mg Documented by: Carvedilol (Carvedilol 3.125 Mg Tablet) 3.125 mg PO BID [facility] Last Admin: 10/21/21 00:32 Dose: 3.125 mg Documented by: Clonidine HCl (Clonidine 0.1 Mg Tablet) 0.1 mg PO BID [facility] Last Admin: 10/21/21 00:31 Dose: 0.1 mg Documented by: Clopidogrel Bisulfate (Clopidogrel 75 Mg Tablet) 75 mg PO DAILY [facility] Cyclobenzaprine HCl (Cyclobenzaprine 10 Mg Tablet) 10 mg PO TID PRN PRN Reason: muscle spasm Last Admin: 10/20/21 20:28 Dose: 10 mg Documented by: Docusate Sodium (Docusate Sodium 100 Mg Capsule) 100 mg PO BID [facility] Last Admin: 10/21/21 00:33 Dose: 100 mg Documented by: Escitalopram Oxalate (Escitalopram 10 Mg Tablet) 20 mg PO DAILY [facility] Furosemide (Furosemide 40 Mg Tablet) 40 mg PO QAM [facility] Last Admin: 10/21/21 06:19 Dose: 40 mg Documented by: Heparin Sodium (Porcine) (Heparin 5,000 Unit/Ml Inj 1 Ml) 5,000 unit SUBCUT Q12H [facility] Last Admin: 10/21/21 03:29 Dose: Not Given Documented by: Hydralazine HCl (Hydralazine 25 Mg Tablet) 25 mg PO TID [facility] Last Admin: 10/21/21 00:36 Dose: Not Given Documented by: Insulin Glargine (Insulin Glargine 100 Units/1 Ml) 5 unit SUBCUT BID@08,20 [facility] Isosorbide Mononitrate (Isosorbide Mononitrate Er 60 Mg Tablet) 60 mg PO QAM [facility] Last Admin: 10/21/21 06:19 Dose: 60 mg Documented by: Levothyroxine Sodium (Levothyroxine 150 Mcg Tablet) 150 mcg PO QAM [facility] Last Admin: 10/21/21 06:19 Dose: 150 mcg Documented by: Nitroglycerin (Nitroglycerin 0.4 Mg Sublingual Tablet) 0.4 mg SUBLINGUAL Q5M PRN PRN Reason: Chest Pain Non-Formulary Medication (B Complex-Vitamin C-Folic Acid [Dialyvite]) 1 tab PO DAILY [facility] Non-Formulary Medication (Clonazepam) 0.25 mg PO BID PRN PRN Reason: Anxiety Non-Formulary Medication (Ondansetron Hcl) 8 mg PO Q8H PRN PRN Reason: Nausea And Vomiting Non-Formulary Medication (Pierce 6-Zzg-Yea-Fish Oil [Fish Oil]) 1 cap PO BID@08,20 [facility] Ondansetron HCl (Ondansetron 2 Mg/Ml Sdv 2 Ml) 4 mg IVP Q8H PRN PRN Reason: vomiting, or N/V if npo Last Admin: 10/20/21 21:43 Dose: 4 mg Documented by: Oxycodone HCl (Oxycodone 5 Mg Ir Tab/Cap) 5 mg PO Q12H [facility] Last Admin: 10/20/21 23:45 Dose: 5 mg Documented by: Pantoprazole Sodium (Pantoprazole 40 Mg Sdv) 40 mg IVP Q24H [facility] Last Admin: 10/20/21 21:31 Dose: Not Given Documented by: Vitamin D (Cholecalciferol (Vitamin D3) 1,000 Unit Tablet) 1,000 unit PO DA JOSEF@08 [facility] Vitals/I&O/Wt Last Vital Signs Temp 97.9 F 10/21/21 04:00 Pulse 62 10/21/21 06:00 Resp 18 10/21/21 04:00 BP 147/68 10/21/21 04:00 Pulse Ox 97 10/21/21 04:00 10/20/21 10/21/21 10/21/21 22:59 06:59 14:59 Intake Total 120 / 120 0 / 120 Balance 120 / 120 0 / 120 Weight last 48 hrs Weight 86.183 kg Physical Exam Narrative: obese, swollen, in bed, CPAP on vs noted heent- nc/at, eomi, anicteric neck supple lungs dull bases, crackles improved b/l heart reg abd soft, nt, nd, + bs ext LUE AVF w/ thrill and bruit neuro- aake and alert Data : 10/21/21 05:13 10/21/21 05:13 A&P Assessment and plan (1) ESRD on hemodialysis: 56 yr old female 1/ ESRD- volume overload- s/p HD yesterday- attempt SUF today 2 hrs, remove 2+ liters HD in am -chest ct and xrays w/ pleural effusions 2/ Cardiology eval in past noted 3/bp- dec meds as fluid removed 4/ hgb okay 5/ monitor phos 6/ DM control seen and examined w/ RN- telehealth visit time spent 30 min informed consent for telehealth obtained from pt Status: Acute Plan see above Attestations Medical Necessity Statement*: chf, htn, esrd Time Spent in Patient Care: 16 - 35 minutes (>than 50% of time spent in counselling and/or direct pt care on unit) . Coding Level of Care Code Acute Binding Stitcher for Maris Braden Diagnoses ESRD on hemodialysis N18.6; Z99.2
--- NOTE | 2021-10-21 08:00 | XR_ITS ---
WS: [id number] PORTABLE CHEST HISTORY: follow up COMPARISON: 10/20/2021 Mild elevation RIGHT hemidiaphragm. Areas of atelectasis at the RIGHT lung base. Small bilateral pleu ral effusions. Vasculature is slightly improved as compared to the most recent study. No improvement in the atelectasis or pleural effusions. Cardiac size: Mildly enlarged cardiac silhouette. Mediastinum/Aorta: Mild atherosclerosis aorta. No osseous abnormality seen. XR/XR chest 1V portable [id number] IMPRESSION: 1. Small bilateral pleural effusions and mild cardiomegaly. No improvement. 2. Mild improvement in pulmonary vascular congestion since the prior study.
[2021-10-21] MEDS: aspirin 81 mg Chew Tablet PO (09:02)
[2021-10-21] MEDS: cholecalciferol (vitamin D3) 1,000 unit Tablet 1000 UNIT PO (09:02)
[2021-10-21] MEDS: oxyCODONE 5 mg IR Tab/Cap PO ×2 (09:03→22:23)
[2021-10-21] MEDS: clopidogrel 75 mg Tablet PO (09:03)
[2021-10-21] MEDS: escitalopram 10 mg Tablet 20 MG PO (09:03)
[2021-10-21] MEDS: amlodipine 10 mg Tablet PO (09:04)
--- NOTE | 2021-10-21 10:49 | PC.CHAP ---
Pastoral Care Encounter/Spiritual Assessment Type of Contact [] Declined girls tennis coach visit [] Patient/Family/Request visit [] Outpatient visit [] Follow-up visit [] Physician referral [] Code/Alert [] Routine visit [] Staff referral [] Actively dying [] Patient sleeping [] Family support [] [] Out of room [] Palliative care [] [] Receiving care in room [] Pre-surgical visit [] Trauma [] Long length of stay [] ICU visit [] Other: Relational/Emotional Strength [] Patient feels connected with others/family/visitors/staff [] Distress [] Loneliness/isolation [] Abandonment Spirituality of Patient [] Person of [place] [] Attends Jehovah'S Witness of their [place] [] Believes in Prayer [] Reads Bible or Yazdanism materials [] There are Spiritual issues to be addressed Health Policy Manager Interventions [] Prayer [] Active listening [] Non-anxious presence [] Spiritual/emotional support [] Crisis/trauma care [] Spiritual counseling [] Bereavement support [] Provided bereavement packet [] Provided Bible/devotional materials [] Provided toy/stuffed animal, coloring book to patient or family member [] Provided Communion [] Anointing/Excel [] Salvation [] Completed spiritual assessment [] Other: Impact on Illness or Injury [] Angry [] Fearful [] Anxious [] Often cries [] Exhaustion [] Unable to work [] Unable to attend hinduism [] Unable to walk/stand [] Unable to read [] Unable to drive [] Unable to eat/drink [] Unable to sleep [] Unable to be with family [] Patient intubated [] Other: Summary Time spent with patient Pastoral Care Encounter/Spiritual Assessment Type of Contact [] Declined girls tennis coach visit [] Patient/Family/Request visit [] Outpatient visit [] Follow-up visit [] Physician referral [] Code/Alert [x] Routine visit [] Staff referral [] Actively dying [] Patient sleeping [] Family support [] [] Out of room [] Palliative care [] [] Receiving care in room [] Pre-surgical visit [] Trauma [] Long length of stay [] ICU visit [] Other: Relational/Emotional Strength [x] Patient feels connected with others/family/visitors/staff [] Distress [] Loneliness/isolation [] Abandonment Spirituality of Patient [x] Person of T[place]a [] Attends Jehovah'S Witness of their [place] [] Believes in Prayer [] Reads Bible or Yazdanism materials [] There are Spiritual issues to be addressed Health Policy Manager Interventions [x] Prayer [x] Active listening [] Non-anxious presence [x] Spiritual/emotional support [] Crisis/trauma care [] Spiritual counseling [] Bereavement support [] Provided bereavement packet [] Provided Bible/devotional materials [] Provided toy/stuffed animal, coloring book to patient or family member [] Provided Communion [] Anointing/Excel [] Salvation [x] Completed spiritual assessment [] Other: Impact on Illness or Injury [] Angry [] Fearful [] Anxious [] Often cries [] Exhaustion [] Unable to work [] Unable to attend hinduism [] Unable to walk/stand [] Unable to read [] Unable to drive [] Unable to eat/drink [] Unable to sleep [] Unable to be with family [] Patient intubated [] Other: Summary Time spent with patient 10 min
[2021-10-21 11:42] LABS: Glucose Point of Care 101 mg/dL (70-110)
--- NOTE | 2021-10-21 12:50 | P.PN_ITS ---
Subjective Subjective: Seen this morning. Patient is no longer short of breath. No conversational dyspnea noted. She was resting comfortably when seen. She states she is feeling a little better after her first dialysis session. However does not feel back to baseline yet. Denies any chest pain, nausea, vomiting, di arrhea. Plan is to dialyze again today. Vitals/I&O/Wt Last Vital Signs Temp 98.4 F 10/21/21 11:18 Pulse 66 10/21/21 11:18 Resp 18 10/21/21 11:18 BP 118/58 10/21/21 11:18 Pulse Ox 93 10/21/21 11:18 10/20/21 10/21/21 10/21/21 22:59 06:59 14:59 Intake Total 120 / 120 0 / 120 120 / 120 Balance 120 / 120 0 / 120 120 / 120 Weight last 48 hrs Weight 86.183 kg Physical Exam Narrative: General: Alert oriented x3, patient seen laying in bed appearing comfortable. No conversational dyspnea noted. No use of accessory muscles. Normocephalic, atraumatic, EOMI, conversational dyspnea present, mild respirator y distress present. Cardio: Regular rate rhythm, normal S1-S2, S3 present. Respiratory: Coarse breath sounds bilaterally with mild crackles at bases, no wheezes GI: Abdomen soft, nontender, nondistended, bowel sounds + Behavior: Appropriate and cooperative Extremities: Trace edema bilateral lower extremities no cyanosis noted. Data : 10/21/21 05:13 10/21/21 05:13 A&P Assessment and plan (1) CHF exacerbation: Status: Acute (2) Light headedness: Status: Acute (3) HTN (hypertension): Status: Acute (4) Acute and chronic respiratory failure: Status: Acute (5) CAD (coronary artery disease): Status: Chronic Qualifiers: Coronary Disease-Associated Artery/Lesion type: [place] artery [place] vs. transplanted heart: [place] heart Associated angina: with stable angina Qu alified Code(s): I25.118 - Atherosclerotic heart disease of [place] coronary artery with other forms of angina pectoris (6) CKD (chronic kidney disease) stage 5, GFR less than 15 ml/min: Status: Chronic (7) Sleep apnea: Status: Chronic Qualifiers: Sleep apnea type: obstructive Qualified Code(s): G47.33 - Obstructive sleep apnea (adult) (pediatric) (8) Congestive heart failure: Status: Chronic Qualifiers: Heart failure chronicity: acute on chronic Heart failure type: diastolic Qualified Code(s): I50.33 - Acute on chronic diastolic (congestive) heart failure Plan #Shortness of breath, lightheadedness, most likely secondary to hypoxia and fluid overload. #Hypertension #End-stage renal disease dialysis Wednesday #Diabetes mellitus #Anemia of chronic disease #Mild thrombocytopenia ? Patient is a dialysis patient Wednesday and was supposed to go for dialysis today at 130.? She presented with lightheadedness and shortness of breath.? CTA ruled out PE.? Nephrology has been consulted. ? Placed on telemetry ? Continue home medications for hypertension ? Blood sugars are on the lower side.? We will hold home Lantus. -Last echo August 2021 was normal.? No diastolic defects or systolic defects, valves normal. ? ABG reviewed. Continue patient on BiPAP as needed. ? Dialysis done yesterday. Plan for another dialysis session today. Patient has improved but not quite back to baseline yet. ? DuoNeb every 6 hour as needed Full code Attestations Medical Necessity Statement*: Dialysis today. Possible discharge tomorrow pending clinical improvement. Coding Level of Care Code Acute Tariff Expert for g Fwd Diagnoses CHF exacerbation I50.9 Light headedness R42 HTN (hypertension) I10 Acute and chronic respiratory failure J96.20 CAD (coronary artery disease) I25.118 Coronary Disease-Associated Artery/Lesion type: [place] artery [place] vs. transplanted heart: [place] heart Associated angina: with stable angina CKD (chronic kidney disease) stage 5, GFR less than 15 ml/min N18.5 Sleep apnea G47.33 Sleep apnea type: obstructive Congestive heart failure I50.33 Heart failure chronicity: acute on chronic Heart failure type: diastolic
[2021-10-21] MEDS: heparin 5,000 unit/mL INJ 1 mL 5000 UNIT SUBCUT (13:15)
[2021-10-21] MEDS: pantoprazole 40 mg SDV IVP (13:15)
[2021-10-21] MEDS: cyclobenzaprine 10 mg Tablet PO (15:01)
[2021-10-21 20:36] LABS: Glucose Point of Care 190 mg/dL (70-110)
[2021-10-21] MEDS: nitroglycerin 0.4 mg sublingual Tablet SUBLINGUAL (22:25)
[2021-10-22] VITALS (16 sets, daily range): BP systolic 121–166; BP diastolic 55–78; PULSE 57–60; RESP 12–17; TEMP 36.4–36.9; O2SAT 92–98
[2021-10-22] MEDS: nitroglycerin 0.4 mg sublingual Tablet SUBLINGUAL ×2 (03:52→04:52)
[2021-10-22] MEDS: FUROsemide 40 mg Tablet PO (04:52)
[2021-10-22] MEDS: levothyroxine 150 mcg Tablet PO (04:52)
[2021-10-22] MEDS: isosorbide mononitrate ER 60 mg Tablet PO (04:52)
[2021-10-22] MEDS: cyclobenzaprine 10 mg Tablet PO ×2 (04:56→16:56)
[2021-10-22 06:14] LABS: Basophils % 0.5 %; Eosinophils # 0.4 10^3/uL (0.0-0.8); Eosinophils % 11.1 %; Hematocrit 32.7 % (37.0-47.0); Hemoglobin 10.2 g/dL (11.5-15.3); Lymphocytes # 0.5 10^3/uL (0.8-4.8); Lymphocytes % 12.4 %; Mean Corpuscular HGB Conc 31.2 g/dL (30.0-36.0); Mean Corpuscular Hemoglobin 31.9 pg (28.0-34.0); Mean Corpuscular Volume 102.2 fl (81-99); Mean Platelet Volume 11.5 fL (7.4-10.4); Monocytes # 0.4 10^3/uL (0.2-0.9); Monocytes % 9.3 %; Neutrophils # 2.51 10^3/uL (1.8-7.7); Neutrophils % 66.4 %; Nucleated Red Blood Cells % 0 %; Platelet Count 146 10^3/cmm (130-400); Red Cell Distribution Width 14.7 % (12.1-15.1); White Blood Count 3.8 10^3/uL (4.0-10.0)
[2021-10-22 06:35] LABS: INR 1.23 (0.8-1.2)
[2021-10-22 06:38] LABS: Glucose Point of Care 113 mg/dL (70-110)
[2021-10-22 06:42] LABS: Alanine Aminotransferase < 5 U/L (0-33); Albumin Level 3.5 g/dL (3.5-5.2); Alkaline Phosphatase 140 IU/L (35-105); Anion Gap 15.3 (5-19); Aspartate Amino Transferase 12 U/L (0-32); Blood Urea Nitrogen 32 mg/dL (6-20); Calcium 7.6 mg/dL (8.5-10.5); Carbon Dioxide 28 mmol/L (22-29); Chloride 101 mmol/L (98-107); Globulin 2.4 g/dL (1.3-4.6); Glomerular Filtration Rate 6.5 mL/min (90-130); Glucose 122 mg/dL (65-115); Osmolality Calculated 298 mOsm/kg (285-295); Phosphorus 5.3 mg/dL (2.5-4.5); Potassium 4.3 mmol/L (3.5-5.1); Sodium 140 mmol/L (136-145); Total Bilirubin 0.4 mg/dL (0.15-1.2); Total Protein 5.9 g/dL (6.6-8.7)
--- NOTE | 2021-10-22 07:12 | PM.PN ---
Subjective Subjective: lethargic, weak, less swollen, dec sob. denies CP overnight. no n/v/f/c/willingham/d Medications: Reviewed: Yes Medication Review Details: Current Medications Amlodipine Besylate (Amlodipine 10 Mg Tablet) 10 mg PO DAILY [facility] Last Admin: 10/21/21 09:04 Dose: 10 mg Documented by: Aspirin (Aspirin 81 Mg Chew Tablet) 81 mg PO DAILY@08 [facility] Last Admin: 10/21/21 09:02 Dose: 81 mg Documented by: Atorvastatin Calcium (Atorvastatin 40 Mg Tablet) 40 mg PO DAILY@20 [facility] Last Admin: 10/21/21 22:24 Dose: Not Given Documented by: Carvedilol (Carvedilol 3.125 Mg Tablet) 3.125 mg PO BID [facility] Last Admin: 10/21/21 22:24 Dose: 3.125 mg Documented by: Clonidine HCl (Clonidine 0.1 Mg Tablet) 0.1 mg PO BID [facility] Last Admin: 10/21/21 22:24 Dose: 0.1 mg Documented by: Clopidogrel Bisulfate (Clopidogrel 75 Mg Tablet) 75 mg PO DAILY [facility] Last Admin: 10/21/21 09:03 Dose: 75 mg Documented by: Cyclobenzaprine HCl (Cyclobenzaprine 10 Mg Tablet) 10 mg PO TID PRN PRN Reason: muscle spasm Last Admin: 10/22/21 04:56 Dose: 10 mg Documented by: Docusate Sodium (Docusate Sodium 100 Mg Capsule) 100 mg PO BID [facility] Last Admin: 10/21/21 18:40 Dose: Not Given Documented by: Escitalopram Oxalate (Escitalopram 10 Mg Tablet) 20 mg PO DAILY [facility] Last Admin: 10/21/21 09:03 Dose: 20 mg Documented by: Furosemide (Furosemide 40 Mg Tablet) 40 mg PO QAM [facility] Last Admin: 10/22/21 04:52 Dose: 40 mg Documented by: Heparin Sodium (Porcine) (Heparin 5,000 Unit/Ml Inj 1 Ml) 5,000 unit SUBCUT Q12H [facility] Last Admin: 10/21/21 13:15 Dose: 5,000 unit Documented by: Hydralazine HCl (Hydralazine 25 Mg Tablet) 25 mg PO TID [facility] Last Admin: 10/21/21 22:24 Dose: Not Given Documented by: Isosorbide Mononitrate (Isosorbide Mononitrate Er 60 Mg Tablet) 60 mg PO QAM [facility] Last Admin: 10/22/21 04:52 Dose: 60 mg Documented by: Levothyroxine Sodium (Levothyroxine 150 Mcg Tablet) 150 mcg PO QAM [facility] Last Admin: 10/22/21 04:52 Dose: 150 mcg Documented by: Nitroglycerin (Nitroglycerin 0.4 Mg Sublingual Tablet) 0.4 mg SUBLINGUAL Q5M PRN PRN Reason: Chest Pain Last Admin: 10/22/21 04:52 Dose: 1 tab Documented by: Non-Formulary Medication (B Complex-Vitamin C-Folic Acid [Dialyvite]) 1 tab PO DAILY [facility] Non-Formulary Medication (Clonazepam) 0.25 mg PO BID PRN PRN Reason: Anxiety Non-Formulary Medication (Ondansetron Hcl) 8 mg PO Q8H PRN PRN Reason: Nausea And Vomiting Non-Formulary Medication ([place] 3-Lbs-Pdd-Fish Oil [Fish Oil]) 1 cap PO BID@ [facility] Ondansetron HCl (Ondansetron 2 Mg/Ml Sdv 2 Ml) 4 mg IVP Q8H PRN PRN Reason: vomiting, or N/V if npo Last Admin: 10/20/21 21:43 Dose: 4 mg Documented by: Oxycodone HCl (Oxycodone 5 Mg Ir Tab/Cap) 5 mg PO Q12H [facility] Last Admin: 10/21/21 22:23 Dose: 5 mg Documented by: Pantoprazole Sodium (Pantoprazole 40 Mg Sdv) 40 mg IVP Q24H [facility] Last Admin: 10/21/21 13:15 Dose: 40 mg Documented by: Vitamin D (Cholecalciferol (Vitamin D3) 1,000 Unit Tablet) 1,000 unit PO DAILY@08 [facility] Last Admin: 10/21/21 09:02 Dose: 1,000 unit Documented by: Vitals/I&O/Wt Last Vital Signs Temp 97.5 F L 10/22/21 03:29 Pulse 58 L 10/22/21 06:00 Resp 16 10/22/21 03:29 BP 166/78 10/22/21 03:29 Pulse Ox 97 10/22/21 03:29 10/21/21 10/22/21 10/22/21 22:59 06:59 14:59 Intake Total 480 / 840 0 / 840 Balance 480 / 840 0 / 840 Weight last 48 hrs Weight 86.183 kg Physical Exam Narrative: obese, swollen, in bed, CPAP on vs noted heent- nc/at, eomi, anicteric neck supple lungs dec dull bases, crackles improved b/l heart reg abd soft, nt, nd, + bs ext LUE AVF w/ thrill and bruit neuro- awake and alert Data : 10/22/21 05:48 10/22/21 05:48 A&P Assessment and plan (1) ESRD on hemodialysis: 56 yr old female 1/ ESRD- volume overload- s/p HD on 10/20, SUF 10/21. Repeat HD now 3.5 hrs, 3k, remove 3l -chest ct and xrays w/ pleural effusions 2/ Cardiology eval in past noted- normal EF -consider right heart cath 3/bp- dec meds as fluid removed 4/ hgb dropping- monitor iron studies 5/ monitor phos-binder 6/ DM control seen and examined w/ RN- telehealth visit time spent 30 min informed consent for telehealth obtained from pt Status: Acute Plan see above Attestations Medical Necessity Statement*: sob, ESRD Time Spent in Patient Care: 16 - 35 minutes (>than 50% of time spent in counselling and/or direct pt care on unit). Coding Level of Care Code Acute Manager Shell for Maris Fwd Diagnoses ESRD on hemodialysis N18.6; Z99.2
--- NOTE | 2021-10-22 09:00 | US_ITS ---
WS: [id number] INDICATION: Pleural effusion TECHNIQUE: Ultrasound chest FINDINGS: Ultrasound chest. Small LEFT greater than RIGHT pleural effusions with compressive atelecta sis in the lung bases. Insufficient fluid for thoracentesis at this time. US/US chest [id number] IMPRESSION: Small bilateral pleural effusions LEFT greater than RIGHT with comp ressive atelectasis.
[2021-10-22 09:09] LABS: Ferritin 431 ng/mL (15-150); Iron 39 ug/dL (37-145); Percent Saturation 26.1 % (20-50); Total Iron Binding Capacity 149 mcg/dl; Unsaturated Iron Binding 110 ug/dL (112-347)
[2021-10-22] MEDS: oxyCODONE 5 mg IR Tab/Cap PO ×2 (09:14→20:24)
[2021-10-22] MEDS: carvedilol 3.125 mg Tablet PO ×2 (09:16→18:00)
[2021-10-22] MEDS: amlodipine 10 mg Tablet 5 MG PO (09:17)
[2021-10-22] MEDS: cloNIDine 0.1 mg Tablet PO ×3 (09:17→20:23)
[2021-10-22] MEDS: cholecalciferol (vitamin D3) 1,000 unit Tablet 1000 UNIT PO (09:17)
[2021-10-22] MEDS: escitalopram 10 mg Tablet 20 MG PO (09:18)
[2021-10-22] MEDS: docusate sodium 100 mg Capsule PO ×2 (09:18→18:00)
[2021-10-22 10:46] LABS: Glucose Point of Care 113 mg/dL (70-110)
--- NOTE | 2021-10-22 11:13 | PM.CONSULT ---
Providers/Reason For Consult Consulting Physician/Specialty*: Dong Pitt MD/ Cardiology Reason for Consult*: Congestive heart failure Requesting Physician: Dr Luciano Attending Physician: Flash Luciano MD Primary Care Provider: Jacob Sharp DO History of Present Illness History of Present Illness Rizwana Herzog is a 56 year old female with past medical history of hypertension, diabetes, end-stage renal disease on dialysis, diastolic CHF, chronic hypoxia, CAD and paroxysmal atrial tachycardia who presented to the hospital with shortness of breath. She also had a recent admission secondary to CHF exacerbation. After getting dialysis in the hospital, her breathing has improved. Cardiology was consulted to assess for need for right and left heart cath as she has been having recurrent CHF exacerbations and pulmonary edema. She denies any active chest pain at this time however does get on and off chest discomfort and has significant dyspnea on exertion and at rest as well. Review of Systems Const: Denies: fever(s), chills or diaphoresis ENMT: Denies: throat pain, ear or mastoid pain, nasal discharge or nasal congestion Card: Reports: chest pain and edema; Denies: syncope Resp: Reports: dyspnea GI: Denies: abdominal pain, nausea or vomiting : Denies: flank pain, difficulty voiding, dysuria, urinary frequency or urinary urgency Skin/Breast: Denies: rash or pruritus Medications/Allergies Home Medications Medication Instructions Recorded Confirmed Last Taken Type aspirin 81 mg chewable tablet 81 mg PO DAILY@06/25/19 10/20/21 10/18/21 History omega 3-evu-ssn-fish oil 300 1 cap PO BID@01/17/20 10/20/21 10/19/21 History mg-1,000 mg capsule,delayed release (Fish Oil) nitroglycerin 0.4 mg sublingual 0.4 mg SUBLINGUAL Q5M PRN #25 tab 03/26/20 10/20/21 04/18/20 Rx tablet cholecalciferol (vitamin D3) 25 25 mcg PO DAILY@05/14/20 10/20/21 10/19/21 History mcg (1,000 unit) tablet (Vitamin D3) clonidine HCl 0.1 mg tablet 0.1 mg PO BID #60 tab 01/03/21 10/20/21 10/19/21 Rx pantoprazole 40 mg tablet,delayed 40 mg PO DAILY@08 #90 tab 04/02/21 10/20/21 10/19/21 Rx release atorvastatin 40 mg tablet 40 mg PO DAILY@20 #90 tab 04/28/21 10/20/21 10/19/21 Rx pen needle, diabetic 32 gauge x #100 ea 06/17/21 10/20/21 Unknown Rx (ReliOn Pen [place]) amlodipine 10 mg tablet 10 mg PO DAILY 30 Days #30 tab 07/22/21 10/20/21 10/19/21 Rx escitalopram oxalate 20 mg tablet 20 mg PO DAILY 07/22/21 10/20/21 10/19/21 History furosemide 40 mg tablet 40 mg PO QAM #30 tab 08/12/21 10/20/21 10/19/21 Rx PROSTHETIC SUPPLIES #1 ea 08/21/21 10/20/21 Unknown Rx levothyroxine 150 mcg tablet 150 mcg PO QAM 09/02/21 10/20/21 10/20/21 History (Euthyrox) ondansetron HCl 8 mg tablet 8 mg PO Q8H PRN 09/02/21 10/20/21 10/13/21 History vitamin B complex-vitamin C 100 1 tab PO DAILY 09/02/21 10/20/21 10/19/21 History mg-folic acid 1 mg tablet (Dialyvite) insulin glargine 100 unit/mL (3 5 unit (0.05 mL) SUBCUT BID@08,20 09/05/21 10/20/21 10/19/21 Rx mL) subcutaneous pen (Lantus #15 ml Solostar U-100 Insulin) glucosamine sulf dipot 1 cap PO DAILY 09/22/21 10/20/21 10/19/21 History chlr,msm,chond 550 mg-C 30 mg-janet 1 mg capsule (Glucosamine Chondroitin) carvedilol 3.125 mg tablet 3.125 mg PO BID #60 tab 09/26/21 10/20/21 10/20/21 Rx hydralazine 25 mg tablet 25 mg PO TID #90 tab 09/26/21 10/20/21 10/19/21 Rx clonazepam 0.25 mg disintegrating 0.25 mg PO BID PRN #30 tab 05/10/22 05/16/22 05/15/22 Rx tablet cyclobenzaprine 10 mg tablet 10 mg PO TID PRN #30 tab 10/14/21 10/20/21 10/19/21 Rx oxycodone 5 mg tablet 5 mg PO Q12H 30 Days #60 tab 10/14/21 10/20/21 10/19/21 Rx clopidogrel 75 mg tablet 75 mg PO DAILY 10/20/21 10/20/21 Unknown History isosorbide mononitrate 60 mg 60 mg PO QAM 10/20/21 10/20/21 Unknown History tablet,extended release 24 hr Allergies Allergy/AdvReac Type Severity Reaction Status Date / Time metformin [From Glucophage] Allergy Severe Unknown Verified 10/20/21 13:09 venlafaxine [From Effexor] Allergy Severe ADR-Shakine Verified 10/20/21 13:09 ss Current Medications Generic Name Dose Route Start Last Admin Trade Name Freq PRN Reason Stop Dose Admin Amlodipine Besylate 5 mg 10/22/21 09:00 10/22/21 09:17 Amlodipine 10 Mg Tablet PO 5 mg DAILY JERSON Administration Aspirin 81 mg 10/21/21 08:00 10/21/21 09:02 Aspirin 81 Mg Chew Tablet PO 81 mg DAILY@08 JERSON Administration Atorvastatin Calcium 40 mg 10/20/21 20:00 10/21/21 22:24 Atorvastatin 40 Mg Tablet PO Not Given DAILY@20 JERSON Carvedilol 3.125 mg 10/20/21 19:56 10/22/21 09:16 Carvedilol 3.125 Mg Tablet PO 3.125 mg BID JERSON Administration Clonidine HCl 0.1 mg 10/20/21 19:56 10/22/21 09:17 Clonidine 0.1 Mg Tablet PO 0.1 mg BID JERSON Administration Clopidogrel Bisulfate 75 mg 10/21/21 09:00 10/21/21 09:03 Clopidogrel 75 Mg Tablet PO 75 mg DAILY JERSON Administration Cyclobenzaprine HCl 10 mg 10/20/21 19:56 10/22/21 04:56 Cyclobenzaprine 10 Mg Tablet PO 10 mg TID PRN Administration muscle spasm Docusate Sodium 100 mg 10/20/21 18:00 10/22/21 09:18 Docusate Sodium 100 Mg Capsule PO 100 mg BID JERSON Administration Escitalopram Oxalate 20 mg 10/21/21 09:00 10/22/21 09:18 Escitalopram 10 Mg Tablet PO 20 mg DAILY JERSON Administration Furosemide 40 mg 10/21/21 06:00 10/22/21 04:52 Furosemide 40 Mg Tablet PO 40 mg QAM JERSON Administration Heparin Sodium (Porcine) 5,000 unit 10/20/21 14:15 10/21/21 13:15 Heparin 5,000 Unit/Ml Inj 1 Ml SUBCUT 5,000 unit Q12H JERSON Administration Isosorbide Mononitrate 60 mg 10/21/21 06:00 10/22/21 04:52 Isosorbide Mononitrate Er 60 Mg Tablet PO 60 mg QAM JERSON Administration Levothyroxine Sodium 150 mcg 10/21/21 06:00 10/22/21 04:52 Levothyroxine 150 Mcg Tablet PO 150 mcg QAM JERSON Administration Nitroglycerin 0.4 mg 10/20/21 19:56 10/22/21 04:52 Nitroglycerin 0.4 Mg Sublingual Tablet SUBLINGUAL 1 tab Q5M PRN Administration Chest Pain Ondansetron HCl 4 mg 10/20/21 14:08 10/20/21 21:43 Ondansetron 2 Mg/Ml Sdv 2 Ml IVP 4 mg Q8H PRN Administration vomiting, or N/V if npo Oxycodone HCl 5 mg 10/20/21 19:56 10/22/21 09:14 Oxycodone 5 Mg Ir Tab/Cap PO 5 mg Q12H JERSON Administration Pantoprazole Sodium 40 mg 10/20/21 14:15 10/21/21 13:15 Pantoprazole 40 Mg Sdv IVP 40 mg Q24H JERSON Administration Vitamin D 1,000 unit 10/21/21 08:00 10/22/21 09:17 Cholecalciferol (Vitamin D3) 1,000 Unit Tablet PO 1,000 unit DAILY@08 JERSON Administration PFSH Acute PFSH: Medical History Adjustment disorder with mixed disturbance of emotions and conduct Anemia in chronic kidney disease Anxiety BPPV (benign paroxysmal positional vertigo) CAD (coronary artery disease) Carotid stenosis 04/2020: Right < 50%, Left near 70% Chronic diastolic CHF (congestive heart failure) 12/2020 EF 55%, grade II/IV diastolic dysfunction Chronic kidney disease Chronic left sacroiliac joint pain Claustrophobia Compressive atelectasis Diabetes mellitus Diabetes mellitus, with long-term current use of insulin Diverticulitis Elevated troponin End stage renal disease ESBL (extended spectrum beta-lactamase) producing bacteria infection ESRD (end stage renal disease) on dialysis DAILY (generalized anxiety disorder) Gastroparesis GERD (gastroesophageal reflux disease) Gram-negative bacteremia Hemodialysis catheter dysfunction HTN (hypertension) Hyperlipidemia Hypocalcemia due to chronic kidney disease Hypothyroidism Hypoxemia Major depression, recurrent Mixed dyslipidemia DOROTEO on CPAP PAD (peripheral artery disease) Partial nontraumatic amputation of left foot (~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 There is severe coronary artery disease. 2. FFR of mid LAD was 0.76. 3. Severe OM 2 stenosis. However this is a small sized distal vessel. 4. Mid Left Anterior Descending Coronary Artery was treated with Balloon and Drug Eluting Stent History of right below knee amputation Peritoneal dialysis catheter in place Removed due to recurrent peritonitis S/P cholecystectomy S/P PICC central line placement (~2019) Status post amputation of toe Family History Denies family history of CAD (coronary artery disease) Clotting disorder Dementia Bleeding disorder Social History Smoking and tobacco status: never smoked Alcohol intake: never Household members: spouse and family History of recent travel: No Vitals/I&O/Wt Last Vital Signs Temp 97.6 F 10/22/21 07:33 Pulse 59 L 10/22/21 08:00 Resp 16 10/22/21 09:14 BP 147/71 10/22/21 09:17 Pulse Ox 95 10/22/21 09:14 10/21/21 10/22/21 10/22/21 22:59 06:59 14:59 Intake Total 480 / 840 0 / 840 Balance 480 / 840 0 / 840 Physical Exam Narrative: GENERAL: Patient is alert, awake and oriented x3. [] NECK: No jugular vein distension. [] HEENT: No cyanosis. No icterus. No pallor. [] HEART: Regular S1 and S2. Mild wheezing LUNGS: Clear to auscultate bilaterally. [] ABDOMEN: Soft, nontender and nondistended. Positive bowel sounds. No guarding, rebound or tenderness. [] CENTRAL NERVOUS SYSTEM: Grossly nonfocal. [] EXTREMITIES: Lower extremities with 1+ edema bilaterally. Pulses palpable in the lower extremities, both dorsalis pedis and posterior tibial. [] Data : 10/23/21 03:46 10/23/21 03:46 Micro: Microbiology 10/22/21 10:12 Blood Culture - Preliminary Blood SPECIMEN COLLECTED 10/22/21 10:08 Blood Culture - Preliminary Blood SPECIMEN COLLECTED A&P Assessment and plan (1) Positive cardiac stress test: Status: Acute (2) CHF exacerbation: Status: Acute (3) ESRD on hemodialysis: Status: Acute (4) HTN (hypertension): Status: Acute (5) Acute and chronic respiratory failure: Status: Acute (6) CAD (coronary artery disease): Status: Chronic Qualifiers: Coronary Disease-Associated Artery/Lesion type: [place] artery [place] vs. transplanted heart: [place] heart Associated angina: with stable angina Qualified Code(s): I25.118 - Atherosclerotic heart disease of [place] coronary artery with other forms of angina pectoris Plan Patient has significant CAD history and diastolic CHF. She has been presenting with recurrent pulmonary edema. Could be related to inadequate fluid removal with dialysis however given her chest discomfort symptoms on and off, abnormal stress test recently that showed mostly infarct with emily-infarct ischemia in the LAD territory and recurrent pulmonary edema we will proceed with a right and left heart cath. Risks and benefits of the procedure have been discussed with the patient who understands the risks and benefits and wants to proceed with it. Continue current medications. Low sodium diet Thank you for involving us with care of this patient. We will continue to follow. Please call with questions Coding Level of Care Code Acute Commissioning Manager for Maris Braden Diagnoses Positive cardiac stress test R94.39 CHF exacerbation I50.9 ESRD on hemodialysis N18.6; Z99.2 HTN (hypertension) I10 Acute and chronic respiratory failure J96.20 CAD (coronary artery disease) I25.118 Coronary Disease-Associated Artery/Lesion type: [place] artery [place] vs. transplanted heart: [place] heart Associated angina: with stable angina
[2021-10-22 12:18] LABS: Glucose Point of Care 105 mg/dL (70-110)
--- NOTE | 2021-10-22 16:27 | PM.PN ---
Subjective Subjective: Hospital course, labs appreciated. No acute events overnight. Today morning examination seen during dialysis. Patient feeling lethargic and weak. Denies any shortness of breath. Ultrasound chest showed minimal fluid and thoracentesis was canceled. Currently on 2 L satting 95%. Blood pressures well controlled. Having mild bradycardia. Vitals/I&O/Wt Last Vital Signs Temp 97.6 F 10/22/21 07:33 Pulse 59 L 10/22/21 08:00 Resp 16 10/22/21 09:14 BP 147/71 10/22/21 09:17 Pulse Ox 95 10/22/21 09:14 10/22/21 10/22/21 10/22/21 06:59 14:59 22:59 Intake Total 0 / 840 Balance 0 / 840 Physical Exam Narrative: General: Alert oriented x3, patient seen laying in bed appearing comfortable. No conversational dyspnea noted. No use of accessory muscles. Normocephalic, atraumatic, EOMI, conversational dyspnea present, mild respiratory distress present. Cardio: Regular rate rhythm, normal S1-S2, S3 present. Respiratory: Coarse breath sounds bilaterally with mild crackles at bases, no wheezes GI: Abdomen soft, nontender, nondistended, bowel sounds + Behavior: Appropriate and cooperative Extremities: Trace edema bilateral lower extremities no cyanosis noted. Data : 10/22/21 05:48 10/22/21 05:48 Micro: Microbiology 10/22/21 10:12 Blood Culture - Preliminary Blood SPECIMEN COLLECTED 10/22/21 10:08 Blood Culture - Preliminary Blood SPECIMEN COLLECTED A&P Assessment and plan (1) Acute and chronic respiratory failure: Status: Acute (2) CHF exacerbation: Status: Acute (3) Light headedness: Status: Acute (4) Positive cardiac stress test: Status: Acute (5) HTN (hypertension): Status: Acute (6) CAD (coronary artery disease): Status: Chronic Qualifiers: Associated angina: with stable angina Coronary Disease-Associated Artery/Lesion type: [place] artery [place] vs. transplanted heart: [place] heart Qualified Code(s): I25.118 - Atherosclerotic heart disease of [place] coronary artery with other forms of angina pectoris (7) CKD (chronic kidney disease) stage 5, GFR less than 15 ml/min: Status: Chronic (8) Sleep apnea: Status: Chronic Qualifiers: Sleep apnea type: obstructive Qualified Code(s): G47.33 - Obstructive sleep apnea (adult) (pediatric) (9) Congestive heart failure: Status: Chronic Qualifiers: Heart failure chronicity: acute on chronic Heart failure type: diastolic Qualified Code(s): I50.33 - Acute on chronic diastolic (congestive) heart failure Plan #Shortness of breath, lightheadedness, most likely secondary to hypoxia and fluid overload. #Hypertension #End-stage renal disease dialysis Wednesday #Diabetes mellitus #Anemia of chronic disease #Mild thrombocytopenia ? Patient is a dialysis patient Wednesday and was supposed to go for dialysis today at 130.? She presented with lightheadedness and shortness of breath.? CTA ruled out PE.? Nephrology has been consulted. ? Placed on telemetry ? Continue home medications for hypertension ? Blood sugars are on the lower side.? We will hold home Lantus. -Last echo August 2021 was normal.? No diastolic defects or systolic defects, valves normal. ? ABG reviewed. Continue patient on BiPAP as needed. ? Dialysis done yesterday. Plan for another dialysis session today. Patient has improved but not quite back to baseline yet. ? DuoNeb every 6 hour as needed Plan for day: Dialysis 1 more cycle. Increased dose of antihypertensive with clonidine to 3 times daily. Goal blood pressure less than 140/90 mmHg. Check blood cultures given history of bacteremia in the past and recent removal of dialysis catheter. Hold off on antibiotics as patient has been afebrile. Await cardiology recommendations for possible cardiac angiogram to rule out CAD given recurrent admissions for diastolic heart failure in setting of positive stress test recently. Diabetic renal dialysis diet. Full code Attestations Medical Necessity Statement*: hospitalization for further management and evaluation of shortness of breath secondary to diastolic heart failure in a patient with positive stress test, end-stage renal disease on hemodialysis, uncontrolled hypertension Time Spent in Patient Care: Greater than 35 minutes Coding Level of Care Code Acute Industrial Fabric Cutter for Maris Braden Diagnoses CHF exacerbation I50.9 Light headedness R42 HTN (hypertension) I10 Acute and chronic respiratory failure J96.20 CAD (coronary artery disease) I25.118 Associated angina: with stable angina Coronary Disease-Associated Artery/Lesion type: [place] artery [place] vs. transplanted heart: [place] heart CKD (chronic kidney disease) stage 5, GFR less than 15 ml/min N18.5 Sleep apnea G47.33 Sleep apnea type: obstructive Congestive heart failure I50.33 Heart failure chronicity: acute on chronic Heart failure type: diastolic Positive cardiac stress test R94.39
[2021-10-22] MEDS: pantoprazole 40 mg SDV IVP (16:49)
--- NOTE | 2021-10-22 17:24 | PC.HD ---
Pt c/o chest pain 01/14 at tx start, states it feels like pain she's had in the past with elevated BP (not angina) and BP is elevated. Bipap in place with brief episodes of decreased O2 sat associated with increased dyspnea, bipap machine function checked per RT. IV hydralazine per pt's nurse brought BP down with improvement in dyspnea and chest pain. Pt developed right shoulder pain at end of treatment, unrelated to prior symptoms. Large pressure dressing to right subclavian area, s/p tunnelled cath removal this morning, was mostly off so removed. No bleeding/drainage to site, bandaids applied.
[2021-10-22 18:18] LABS: Glucose Point of Care 156 mg/dL (70-110)
--- NOTE | 2021-10-22 19:31 | PC.HD ---
Near end of treatment AP suddenly spiked, remained high in spite of manipulation, treatment ended 8 minutes early.
[2021-10-22] MEDS: atorvastatin 40 mg Tablet PO (20:24)
[2021-10-22 20:30] LABS: Glucose Point of Care 156 mg/dL (70-110)
[2021-10-23] VITALS (14 sets, daily range): BP systolic 105–165; BP diastolic 59–77; PULSE 54–59; RESP 12–18; TEMP 36.3–36.9; O2SAT 94–98
[2021-10-23] MEDS: cyclobenzaprine 10 mg Tablet PO ×2 (00:27→12:23)
[2021-10-23 03:36] LABS: Glucose Point of Care 122 mg/dL (70-110)
[2021-10-23 04:23] LABS: Basophils % 0.7 %; Eosinophils # 0.5 10^3/uL (0.0-0.8); Eosinophils % 12.6 %; Hematocrit 36.2 % (37.0-47.0); Lymphocytes # 0.6 10^3/uL (0.8-4.8); Lymphocytes % 13.8 %; Mean Corpuscular HGB Conc 30.4 g/dL (30.0-36.0); Mean Corpuscular Hemoglobin 31.3 pg (28.0-34.0); Mean Corpuscular Volume 102.8 fl (81-99); Mean Platelet Volume 11.4 fL (7.4-10.4); Monocytes # 0.4 10^3/uL (0.2-0.9); Neutrophils # 2.68 10^3/uL (1.8-7.7); Neutrophils % 63.7 %; Nucleated Red Blood Cells % 0 %; Platelet Count 156 10^3/cmm (130-400); Red Blood Count 3.52 10^6/uL (4.1-5.3); Red Cell Distribution Width 14.6 % (12.1-15.1); White Blood Count 4.2 10^3/uL (4.0-10.0)
[2021-10-23 04:46] LABS: Alanine Aminotransferase < 5 U/L (0-33); Albumin Level 3.7 g/dL (3.5-5.2); Alkaline Phosphatase 147 IU/L (35-105); Anion Gap 15.3 (5-19); Aspartate Amino Transferase 15 U/L (0-32); Blood Urea Nitrogen 21 mg/dL (6-20); Calcium 8.2 mg/dL (8.5-10.5); Carbon Dioxide 28 mmol/L (22-29); Chloride 100 mmol/L (98-107); Creatinine Clr Calc Pharmacy 0; Globulin 2.5 g/dL (1.3-4.6); Glomerular Filtration Rate 9.6 mL/min (90-130); Glucose 126 mg/dL (65-115); Magnesium 2.1 mg/dL (1.7-2.3); Osmolality Calculated 293 mOsm/kg (285-295); Phosphorus 4.5 mg/dL (2.5-4.5); Potassium 4.3 mmol/L (3.5-5.1); Sodium 139 mmol/L (136-145); Total Bilirubin 0.4 mg/dL (0.15-1.2); Total Protein 6.2 g/dL (6.6-8.7)
[2021-10-23] MEDS: levothyroxine 150 mcg Tablet PO (05:16)
[2021-10-23] MEDS: isosorbide mononitrate ER 60 mg Tablet PO (05:16)
[2021-10-23] MEDS: FUROsemide 40 mg Tablet PO (05:16)
[2021-10-23 06:05] LABS: Glucose Point of Care 112 mg/dL (70-110)
--- NOTE | 2021-10-23 06:57 | P.PN_ITS ---
Subjective Subjective: remains sob, edema. is improving daily. no n/v/f/c/w[place]/d Medications: Reviewed: Yes Medication Review Details: Current Medications Amlodipine Besylate (Amlodipine 10 Mg Tablet) 5 mg PO DAILY [facility] Last Admin: 10/22/21 09:17 Dose: 5 mg Documented by: Aspirin (Aspirin 81 Mg Chew Tablet) 81 mg PO DAILY@08 [facility] Last Admin: 10/21/21 09:02 Dose: 81 mg Documented by: Atorvastatin Calcium (Atorvastatin 40 Mg Tablet) 40 mg PO DAILY@20 [facility] Last Admin: 10/22/21 20:24 Dose: 40 mg Documented by: Carvedilol (Carvedilol 3.125 Mg Tablet) 3.125 mg PO BID [facility] Last Admin: 10/22/21 18:00 Dose: 3.125 mg Documented by: Clonidine HCl (Clonidine 0.1 Mg Tablet) 0.1 mg PO TID [facility] Last Admin: 10/22/21 20:23 Dose: 0.1 mg Documented by: Clopidogrel Bisulfate (Clopidogrel 75 Mg Tablet) 75 mg PO DAILY [facility] Last Admin: 10/21/21 09:03 Dose: 75 mg Documented by: Cyclobenzaprine HCl (Cyclobenzaprine 10 Mg Tablet) 10 mg PO TID PRN PRN Reason: muscle spasm Last Admin: 10/23/21 00:27 Dose: 10 mg Documented by: Docusate Sodium (Docusate Sodium 100 Mg Capsule) 100 mg PO BID [facility] Last Admin: 10/22/21 18:00 Dose: 100 mg Documented by: Escitalopram Oxalate (Escitalopram 10 Mg Tablet) 20 mg PO DAILY [facility] Last Admin: 10/22/21 09:18 Dose: 20 mg Documented by: Furosemide (Furosemide 40 Mg Tablet) 40 mg PO QAM [facility] Last Admin: 10/23/21 05:16 Dose: 40 mg Documented by: Heparin Sodium (Porcine) (Heparin 5,000 Unit/Ml Inj 1 Ml) 5,000 unit SUBCUT Q12H [facility] Last Admin: 10/21/21 13:15 Dose: 5,000 unit Documented by: Isosorbide Mononitrate (Isosorbide Mononitrate Er 60 Mg Tablet) [facility] Last Admin: 10/23/21 05:16 Dose: 60 mg Documented by: Levothyroxine Sodium (Levothyroxine 150 Mcg Tablet) 150 [facility]cg [facility] [place] [facility] Last Admin: 10/23/21 05:16 Dose: 150 mcg Documented by: Nitroglycerin (Nitroglycerin 0.4 Mg Sublingual Tablet) 0.4 mg SUBLINGUAL Q5M PRN PRN Reason: Chest Pain Last Admin: 10/22/21 04:52 Dose: 1 tab Documented by: Non-Formulary Medication (B Complex-Vitamin C-Folic Acid [Dialyvite]) 1 tab PO DAILY [facility] Non-Formulary Medication (Clonazepam) 0.25 mg PO BID PRN PRN Reason: Anxiety Non-Formulary Medication (Ondansetron Hcl) 8 mg PO Q8H PRN PRN Reason: Nausea And Vomiting Non-Formulary Medication (Molt 4-Jqo-Bqn-Fish Oil [Fish Oil]) 1 cap PO BID@ [facility] Ondansetron HCl (Ondansetron 2 Mg/Ml Sdv 2 Ml) 4 mg IVP Q8H PRN PRN Reason: vomiting, or N/V if npo Last Admin: 10/20/21 21:43 Dose: 4 mg Documented by: Oxycodone HCl (Oxycodone 5 Mg Ir Tab/Cap) 5 mg PO Q12H [facility] Last Admin: 10/22/21 20:24 Dose: 5 mg Documented by: Pantoprazole Sodium (Pantoprazole 40 Mg Sdv) 40 mg IVP Q24H [facility] Last Admin: 10/22/21 16:49 Dose: 40 mg Documented by: Vitamin D (Cholecalciferol (Vitamin D3) 1,000 Unit Tablet) 1,000 unit PO DAILY@08 [facility] Last Admin: 10/22/21 09:17 Dose: 1,000 unit Documented by: Vitals/I&O/Wt Last Vital Signs Temp 98.5 F 10/23/21 04:00 Pulse 57 L 10/23/21 05:33 Resp 17 10/23/21 04:00 BP 161/74 10/23/21 04:00 Pulse Ox 97 10/23/21 04:00 10/22/21 10/22/21 10/23/21 14:59 22:59 06:59 Intake Total 120 / 120 260 / 380 Output Total 200 / 200 Balance 120 / 120 60 / 180 Weight last 48 hrs Weight 0 g Physical Exam Narrative: obese, swollen, in bed, NC 02 vs noted heent- nc/at, eomi, anicteric neck supple lungs dec dull bases, crackles improved b/l heart reg abd soft, nt, nd, + bs ext LUE AVF w/ thrill and bruit neuro- awake and alert Data : 10/23/21 03:46 10/23/21 03:46 Micro: Microbiology 10/22/21 10:12 Blood Culture - Preliminary Blood SPECIMEN COLLECTED 10/22/21 10:08 Blood Culture - Preliminary Blood SPECIMEN COLLECTED A&P Assessment and plan (1) ESRD on hemodialysis: 56 yr old female 1/ ESRD- volume overload- s/p HD on 10/20, SUF 10/21, HD 10/22 -repeat SUF now and full HD in am -chest ct and xrays w/ pleural effusions- improving w/ HD 2/ Cardiology eval in past noted- normal EF -consider right heart cath 3/bp- dec meds as fluid removed 4/ hgb okay 5/ monitor phos-binder -zemplar w/ HD 6/ DM control seen and examined w/ RN- telehealth visit time spent 30 min informed consent for telehealth obtained from pt Status: Acute Plan see above Attestations Medical Necessity Statement*: sob, htn, esrd Time Spent in Patient Care: 16 - 35 minutes (>than 50% of time spent in counselling and/or direct pt care on unit) . Coding Level of Care Code Acute Student Services Counselor for Maris Braden Diagnoses ESRD on hemodialysis N18.6; Z99.2
[2021-10-23] MEDS: cloNIDine 0.1 mg Tablet PO ×2 (09:24→17:21)
[2021-10-23] MEDS: cholecalciferol (vitamin D3) 1,000 unit Tablet 1000 UNIT PO (09:24)
[2021-10-23] MEDS: carvedilol 3.125 mg Tablet PO ×2 (09:24→17:22)
[2021-10-23] MEDS: amlodipine 10 mg Tablet 5 MG PO (09:25)
[2021-10-23] MEDS: docusate sodium 100 mg Capsule PO ×2 (09:25→17:21)
[2021-10-23] MEDS: oxyCODONE 5 mg IR Tab/Cap PO ×2 (09:26→19:48)
[2021-10-23] MEDS: escitalopram 10 mg Tablet 20 MG PO (09:26)
[2021-10-23 11:20] LABS: Glucose Point of Care 140 mg/dL (70-110)
--- NOTE | 2021-10-23 12:39 | P.PN_ITS ---
Subjective Subjective: No chest pain. Underwent dialysis today Medications: Reviewed: Yes Vitals/I&O/Wt Last Vital Signs Temp 98.0 F 10/23/21 11:03 Pulse 57 L 10/23/21 11:03 Resp 16 10/23/21 11:03 BP 130/62 10/23/21 11:03 Pulse Ox 96 10/23/21 11:03 10/22/21 10/23/21 10/23/21 22:59 06:59 14:59 Intake Total 120 / 120 260 / 380 Output Total 200 / 200 Balance 120 / 120 60 / 180 Weight last 48 hrs Weight 0 oz Physical Exam Narrative: GENERAL: Obese lady sitting in bed in distress HEENT: Pupils equal round reactive to light.? + pallor, No icterus. NECK: No JVD appreciated. CARDIOVASCULAR SYSTEM: S1-S2 regular.? No S3 or S4 present.? No murmur rubs or gallops. RESPIRATORY SYSTEM: Chest clear to auscultation.? No wheezes rhonchi or rubs heard.? No use of accessory muscles. EXTREMITIES: No cyanosis or clubbing.? Trace-1+ edema. Right AKA PIECE MARKER SMALL ARMS: Patient is alert oriented ?3.? Right lower extremity prosthesis in place SKIN: Normal turgor and temperature. PSYCH: Normal insight and judgment. Data : 10/23/21 03:46 10/23/21 03:46 Micro: Microbiology 10/22/21 10:12 Blood Culture - Preliminary Blood NEGATIVE TO DATE 10/22/21 10:08 Blood Culture - Preliminary Blood NEGATIVE TO DATE A&P Assessment and plan (1) CHF exacerbation: Status: Acute (2) Positive cardiac stress test: Status: Acute (3) ESRD on hemodialysis: Status: Acute (4) HTN (hypertension): Status: Acute (5) Acute and chronic respiratory failure: Status: Acute (6) CAD (coronary artery disease): Status: Chronic Qualifiers: Coronary Disease-Associated Artery/Lesion type: [place] artery [place] vs. transplanted heart: [place] heart Associated angina: with stable angina Qualified Code(s): I25.118 - Atherosclerotic heart disease of [place] coronary artery with other forms of angina pectoris Plan Patient has significant CAD history and diastolic CHF. She has been presenting with recurrent pulmonary edema. Could be related to inadequate fluid removal with dialysis however given her chest discomfort symptoms on and off, abnormal stress test recently that showed mostly infarct with emily-infarct ischemia in the LAD territory and recurrent pulmonary edema we will proceed with a right and left heart cath in morning. Risks and benefits were discussed with the patients. Possible complications including risk of heart attack stroke and , coronary perforation, arrhythmia, cardiac tamponade in urgent CABG were discussed with the patient as well. Plan is to proceed for the procedure at the earliest. -Continue current medications. Thank you for involving us with care of this patient. We will continue to follow. Please call with questions Attestations Medical Necessity Statement*: needs hospital stay for cardiac cath in am. Coding Level of Care Code Acute Residential Collections for [employer] Fwd Diagnoses Positive cardiac stress test R94.39 CHF exacerbation I50.9 ESRD on hemodialysis N18.6; Z99.2 HTN (hypertension) I10 Acute and chronic respiratory failure J96.20 CAD (coronary artery disease) I25.118 Coronary Disease-Associated Artery/Lesion type: [place] artery [place] vs. transplanted heart: [place] heart Associated angina: with stable angina
--- NOTE | 2021-10-23 13:47 | PM.PN ---
Subjective Subjective: No complaints overnight. On examination lying comfortably in bed. Denies any nausea, vomiting, headache or chest pains. States breathing is at baseline. Currently on 2 L of home oxygen supplementation saturating above 90%. Awaiting cardiac angiogram as per cardiology service. Vitals/I&O/Wt Last Vital Signs Temp 98.0 F 10/23/21 11:03 Pulse 57 L 10/23/21 11:03 Resp 16 10/23/21 11:03 BP 130/62 10/23/21 11:03 Pulse Ox 96 10/23/21 11:03 10/22/21 10/23/21 10/23/21 22:59 06:59 14:59 Intake Total 120 / 120 260 / 380 Output Total 200 / 200 Balance 120 / 120 60 / 180 Weight last 48 hrs Weight 0 g Physical Exam Narrative: General: Alert oriented x3, patient seen laying in bed appearing comfortable. No conversational dyspnea noted. No use of accessory muscles. Normocephalic, atraumatic, EOMI, conversational dyspnea present, mild respiratory distress present. Cardio: Regular rate rhythm, normal S1-S2, S3 present. Respiratory: Coarse breath sounds bilaterally with mild crackles at bases, no wheezes GI: Abdomen soft, nontender, nondistended, bowel sounds + Behavior: Appropriate and cooperative Extremities: Trace edema bilateral lower extremities no cyanosis noted. Data : 10/23/21 03:46 10/23/21 03:46 Micro: Microbiology 10/22/21 10:12 Blood Culture - Preliminary Blood NEGATIVE TO DATE 10/22/21 10:08 Blood Culture - Preliminary Blood NEGATIVE TO DATE A&P Assessment and plan (1) Acute and chronic respiratory failure: Status: Acute (2) CHF exacerbation: Status: Acute (3) Light headedness: Status: Acute (4) Positive cardiac stress test: Status: Acute (5) HTN (hypertension): Status: Acute (6) CAD (coronary artery disease): Status: Chronic Qualifiers: Coronary Disease-Associated Artery/Lesion type: [place] artery [place] vs. transplanted heart: [place] heart Associated angina: with stable angina Qualified Code(s): I25.118 - Atherosclerotic heart disease of [place] coronary artery with other forms of angina pectoris (7) CKD (chronic kidney disease) stage 5, GFR less than 15 ml/min: Status: Chronic (8) Sleep apnea: Status: Chronic Qualifiers: Sleep apnea type: obstructive Qualified Code(s): G47.33 - Obstructive sleep apnea (adult) (pediatric) (9) Congestive heart failure: Status: Chronic Qualifiers: Heart failure chronicity: acute on chronic Heart failure type: diastolic Qualified Code(s): I50.33 - Acute on chronic diastolic (congestive) heart failure Plan Shortness of breath: Most likely secondary to exacerbation of diastolic congestive heart failure. Recurrent episodes. Recent history of positive stress test. Plan in the past was to treat medically. Chest ultrasound negative for drainable pleural fluid. Exacerbation of diastolic heart failure could be secondary to uncontrolled hypertension versus less fluid being taken off during dialysis or secondary to CAD. Appreciate cardiology recommendations. Plan for left heart and right heart cath within next 24 hours and management accordingly. Continue dialysis as per session on Wednesday, Wednesday, Wednesday. Will discuss with nephrology if possible to increase ultrafiltrate. Hypertension: Goal blood pressure less than 140/90 MNG. Continue home medications at home dose. Continue with clonidine 0.1 mg twice daily with 0.1 mg daily on as needed basis for systolic blood pressure more than 160 mmHg. We will continue to monitor and change medications accordingly. #Diabetes mellitus #Anemia of chronic disease #Mild thrombocytopenia Discharge planning: Plan to discharge home with caregiver post cardiac angiogram within next 24 to 48 hours depending on the findings of left heart cath post dialysis post cardiac angiogram. Full code. Renal diabetic dialysis diet. Heparin for DVT prophylaxis. Attestations Medical Necessity Statement*: Requires further hospitalization for management of diastolic heart failure in setting of CAD while cardiac catheterization is awaited given recurrent admissions. Time Spent in Patient Care: Greater than 35 minutes Coding Level of Care Code Acute Speech Professor for [facility] Fwd Diagnoses Acute and chronic respiratory failure J96.20 CHF exacerbation I50.9 Light headedness R42 Positive cardiac stress test R94.39 HTN (hypertension) I10 CAD (coronary artery disease) I25.118 Coronary Disease-Associated Artery/Lesion type: [place] artery [place] vs. transplanted heart: [place] heart Associated angina: with stable angina CKD (chronic kidney disease) stage 5, GFR less than 15 ml/min N18.5 Sleep apnea G47.33 Sleep apnea type: obstructive Congestive heart failure I50.33 Heart failure chronicity: acute on chronic Heart failure type: diastolic
[2021-10-23 14:38] LABS: Vit D 1,25 (Oh)2, Total 25 pg/mL (18-72); Vit D2 1,25 (Oh)2 <8 pg/mL; Vit D3 1,25 (Oh)2 25 pg/mL
[2021-10-23 17:11] LABS: Glucose Point of Care 178 mg/dL (70-110)
[2021-10-23] MEDS: pantoprazole DR 40 mg Tablet PO (17:22)
[2021-10-23] MEDS: atorvastatin 40 mg Tablet PO (19:48)
[2021-10-23 20:28] LABS: Glucose Point of Care 160 mg/dL (70-110)
[2021-10-24] VITALS (19 sets, daily range): BP systolic 123–171; BP diastolic 57–83; PULSE 53–63; RESP 13–23; TEMP 36.1–36.4; O2SAT 90–100
[2021-10-24 04:43] LABS: Alanine Aminotransferase < 5 U/L (0-33); Albumin Level 3.5 g/dL (3.5-5.2); Alkaline Phosphatase 146 IU/L (35-105); Anion Gap 17.6 (5-19); Aspartate Amino Transferase 16 U/L (0-32); Blood Urea Nitrogen 33 mg/dL (6-20); Calcium 8.1 mg/dL (8.5-10.5); Carbon Dioxide 25 mmol/L (22-29); Chloride 99 mmol/L (98-107); Creatinine Clr Calc Pharmacy 0; Globulin 2.5 g/dL (1.3-4.6); Glomerular Filtration Rate 7.1 mL/min (90-130); Glucose 126 mg/dL (65-115); Osmolality Calculated 293 mOsm/kg (285-295); Phosphorus 5.5 mg/dL (2.5-4.5); Potassium 4.6 mmol/L (3.5-5.1); Sodium 137 mmol/L (136-145); Total Bilirubin 0.4 mg/dL (0.15-1.2)
[2021-10-24 04:56] LABS: Glucose Point of Care 117 mg/dL (70-110)
[2021-10-24] MEDS: cyclobenzaprine 10 mg Tablet PO (05:25)
[2021-10-24] MEDS: cloNIDine 0.1 mg Tablet PO (05:25)
[2021-10-24] MEDS: isosorbide mononitrate ER 60 mg Tablet PO (05:26)
[2021-10-24] MEDS: levothyroxine 150 mcg Tablet PO (05:26)
[2021-10-24] MEDS: FUROsemide 40 mg Tablet PO (05:26)
--- NOTE | 2021-10-24 05:42 | NUR.SHIFT ---
Uneventful shift for patient. Did require prn medication for elevated BP which resolved after administration. Did have complaint of back discomfort with prn medication given. IV in right forearm flushed, intact. Fistula in left arm with thrill palpable. Bipap worn while patient slept. NPO since midnight.
--- NOTE | 2021-10-24 06:46 | PC.NURSE ---
Patient left the floor procedure at this time
--- NOTE | 2021-10-24 07:17 | XACV_ITS ---
Exam Room: [facility] Ht: 165 cm Wt: 84 kg BSA: 1.99 m2 Gender: Female : 1965 Any Known Allergies: Other Exam Priority: Routine Procedure(s): Procedure Description: Diagnostic procedure Procedure Description: Left Heart Catheterization Procedure Description: Right Heart Catheterization Procedure Description: O2 saturation Procedure Description: Coronary Angiography Diagnostic Cath Status: Elective Diagnostic Findings * Angiography shows a right coronary dominant system. * Normal calibre left main artery with no disease. * Mild 20% stenosis of mid and distal circumflex. Proximal segment of small distal obtuse marginal branch with 80% stenosis. JENNIFER 3 flow. * Proximal and mid left anterior descending artery is small with very small calibre distally. Patent proximal and mid LAD stents with mild in stent restenosis. Mild narrowing in distal LAD. Jailed first diagonal branch. * Dominant right coronary artery with minor luminal irregularities. Conclusions 1. Angiography shows a right coronary dominant system. 2. Mild 20% stenosis of mid and distal circumflex. Proximal segment of small distal obtuse marginal branch with 80% stenosis. 3. Patent proximal and mid LAD stents with mild in stent restenosis. Mild narrowing in distal LAD. 4. Post capillary pulmonary hypertension. Pulmonary artery pressures are moderately elevated (68/35, 49 mm Hg). . 5. Right atrial pressure is elevated (21 mm Hg). Right ventricular pressures are elevated (69/19, 25 mm Hg). 6. Pulmonary artery wedge pressures are moderately elevated (35 mm Hg). Recommendations * Return to inpatient for close monitoring and routine cath care. Diagnostic RX Recommendation: medical therapy and/or counseling LV EDP: 26 mmHg Pressures Phase:Rest AO : 162 / 79 ( 113 ) @ 9:21:00 AM 167 / 82 ( 117 ) @ 9:29:00 AM 172 / 86 ( 122 ) @ 9:30:00 AM 171 / 66 ( 105 ) @ 9:38:00 AM 168 / 55 ( 101 ) @ 9:38:00 AM LV : 165 / -8 / 24 @ 9:38:00 AM 169 / -4 / 26 @ 9:38:00 AM RV : 69 / 19 / 25 @ 9:06:00 AM 67 / 18 / 23 @ 9:15:00 AM PA : 68 / 35 ( 49 ) @ 9:14:00 AM RA : a wave = 22 v wave = 22 mean = 21 @ 9:16:00 AM PCW : a wave = 36 v wave = 42 mean = 35 @ 9:13:00 AM Hemodynamic Findings Left ventricular end-diastolic pressure is elevated. Right heart pressures are normal throughout; no evidence of a step-up in saturations. Right atrial pressure is elevated (21 mm Hg). Right ventricular pressures are elevated (69/19, 25 mm Hg). Right ventricular pressures are elevated (69/19, 25 mm Hg). Pulmonary artery wedge pressures are moderately elevated (35 mm Hg). Pulmonary artery wedge pressures are moderately elevated (35 mm Hg). There is no stenosis across the aortic valve. O2 Content Phase:Rest PA : O2 Content O2: 69.5 @ 9:29:00 AM Saturations Phase:Rest AO : 93 @ 9:38:00 AM RA : 69 @ 9:38:00 AM RV : 70 @ 9:30:00 AM PA : 70 @ 9:29:00 AM PCW : 69 @ :21:00 AM Cardiac Output Phase:Rest Avani : 5 @ 9:00:23 AM Avani Cardiac Index: 3 @ 9:00:23 AM Flow Phase:Rest Qp : 5 @ 9:00:23 AM Qs : 5 @ 9:00:23 AM Valves Phase:DefaultPhase AV : 0.0 @ 9:00:23 AM AV Mean Gradient: 0.0 @ 9:00:23 AM 0.0 @ 9:00:23 AM AV Flow: 640 @ 9:00:23 AM Clinical Evaluation EBL: 5mL-10mL Procedural Details Procedure Consent Obtained. Pre-Procedure Time Out. Identified patient by full name and date of as verbalized by the patient/guarantor. Does the consent match the physician's order: Yes. Accurate & Complete Informed Consent: Yes. Inpatient/Outpatient History & Physical on Chart: Yes. If H&P is completed, is and addenduem needed: No; If yes, is the addendum complete: N/A. Visualize and Verify Site with Patient/Guarantor: N/A. Relevant Radiology Images available: Yes. Pre-op teaching completed and patient verbalized understanding. The risks, benefits, and alternatives of sedation and/or procedure were discussed by physician. The patient agrees to continue. Procedure started. [facility] Clinical Fraility Score: 5: Mildly Frail. Sample Finisher Indications: Other. Correct patient, site and procedure confirmed by cath team. PERRLA. Strong, equal hand informatica developer bilaterally. Lungs clear x 5 lobes. IV Site on Arrival: 22 gauge in the right wrist. IV Fluids: 0.9% NaCl at KVO. 0 mL infused prior to laboratory chemical assistant. bilateral groins was prepped with chloroprep then draped in the usual sterile fashion. right radial was prepped with chloroprep then draped in the usual sterile fashion. Physician notified. Baseline sample Acquired. HR: 58 BPM. Pre Procedural Pulses: left dorsalis pedis was Doppled. Physician arrived. Physician scrubbed in. Immediate Pre-Procedure Time Out. Correct Patient: Yes; Correct Procedure: Yes; Correct Site: Yes; Correct Patient Position: Yes; Correct Supplies: Yes; Dried Flammable Prep: Yes; Blood Products Available: Yes;. Oxygen started at 2liters/min via nasal canula. Lidocaine 1% infiltrated to the right groin. Arterial access obtained with micropuncture set. Venous access obtained with a micropuncture set. needle out and manual pressure applied to venous access. Ultrasound being used to obtain venous access. Venous access obtained with a micropuncture set. [place] MON catheter inserted. 0.025 wire inserted through the [place] catheter. wire out. 0.025 wire inserted through the [place] catheter. wire out. Dr. Pitt called to help Dr. Ignacio. Dr. Pitt arrived. Oximetry samples were obtained. Normal venous range: 60-85%. Normal arterial range: 95-100%. Pressure measurements obtained. [place] out. A 5 greek JL4 catheter in over wire. Multiple views taken of left coronary artery. Catheter removed over the standard wire. A 5 greek JR4 catheter in over wire. Multiple views taken of right coronary artery. EDP Sample taken: LV 165/-9,24; HR: 61 BPM; SpO2: 96%. Pullback taken: LV 169/-5,26; AO 171/66(105); Mean: 0mmHg, Peak to Peak: 0mmHg, SEP: 8sec/min; HR: 60 BPM; SpO2: 97%. Catheter removed over the standard wire. A Manual Compression was successful obtaining hemostatsis at the Right Femoral vein insertion site. A Manual Compression was successful obtaining hemostatsis at the Right Femoral artery insertion site. Physician scrubbed out. Post Procedure: Pulses reassessed and unchanged. PERRLA. Strong, equal hand informatica developer bilaterally. No VTE prophylaxis required. Medication's Wasted: Lidocaine 1% = 5 mL. Medication's Wasted: Heparin = 1000 units. Medication's Wasted: Other = Fentanyl 100 mg. Total IV fluids: 122 mL. Contrast type used: Omnipaque 300 mgI/mL, 500 mL bottle. Complications: None. Estimated blood loss: 5mL-10mL. Responsiveness - Normal response to verbal stimuli; alert and oriented, PERRLA. Airway - Unaffected, no intervention required; spontaneous ventilation. Circulation: W/N/L, pulses unchanged. Nausea/Vomiting: No. Procedure completed. Vital chart was stopped. Patient transferred by bed to 1st floor. Access Site Site: Right Femoral artery Sheath Size: 6 Fr Hemostasis Method: Manual Compression Hemostasis Success: Successful Site: Right Femoral vein Sheath Size: 6 Fr Hemostasis Method: Manual Compression Hemostasis Success: Successful Procedure Medications Start: 7:26 AM Stop: 7:26 AM Medication: Versed Amount: 1 mg Route: I.V. Start: 8:22 AM Stop: 8:22 AM Medication: Versed Amount: 1 mg Route: I.V. I, the attending physician, have reviewed and verified all procedure medications. Yes, all medications given per verbal order History/Risk Factors Hypertension: Yes Dyslipidemia: Yes Peripheral Arterial Disease (PAD): Yes Myocardial Infarction ([place]): No Obesity: Yes Renal Disease: No Prior Interventions PCI: Yes CABG: No Valve Surgery: No Report Signatures Finalized by Soraya Ignacio MD on 11/04/2021 12:06 PM
--- NOTE | 2021-10-24 07:19 | PM.PN ---
Subjective Subjective: Patient underwent left and right heart cath today Medications: Reviewed: Yes Vitals/I&O/Wt Last Vital Signs Temp 97.5 F L 10/24/21 03:45 Pulse 56 L 10/24/21 06:00 Resp 15 10/24/21 03:45 BP 155/65 10/24/21 05:41 Pulse Ox 100 10/24/21 03:45 10/23/21 10/24/21 10/24/21 22:59 06:59 14:59 Intake Total 480 / 480 480 / 960 Output Total 200 / 200 Balance 480 / 480 280 / 760 Physical Exam Narrative: GENERAL: Obese lady sitting in bed in distress HEENT: Pupils equal round reactive to light.? + pallor, No icterus. NECK: No JVD appreciated. CARDIOVASCULAR SYSTEM: S1-S2 regular.? No S3 or S4 present.? No murmur rubs or gallops. RESPIRATORY SYSTEM: Chest clear to auscultation.? No wheezes rhonchi or rubs heard.? No use of accessory muscles. EXTREMITIES: No cyanosis or clubbing.? Trace-1+ edema. Right AKA DIAGNOSTIC SALES SPECIALIST: Patient is alert oriented ?3.? Right lower extremity prosthesis in place SKIN: Normal turgor and temperature. PSYCH: Normal insight and judgment. Data : 10/23/21 03:46 10/24/21 03:45 Micro: Microbiology 10/22/21 10:12 Blood Culture - Preliminary Blood NEGATIVE TO DATE 10/22/21 10:08 Blood Culture - Preliminary Blood NEGATIVE TO DATE A&P Assessment and plan (1) CHF exacerbation: Status: Acute (2) Positive cardiac stress test: Status: Acute (3) ESRD on hemodialysis: Status: Acute (4) HTN (hypertension): Status: Acute (5) Acute and chronic respiratory failure: Status: Acute (6) CAD (coronary artery disease): Status: Chronic Qualifiers: Associated angina: with stable angina Coronary Disease-Associated Artery/Lesion type: [place] artery [place] vs. transplanted heart: [place] heart Qualified Code(s): I25.118 - Atherosclerotic heart disease of [place] coronary artery with other forms of angina pectoris Plan Patient has significant CAD history and diastolic CHF. She has been presenting with recurrent pulmonary edema. Could be related to inadequate fluid removal with dialysis however given her chest discomfort symptoms on and off, abnormal stress test recently that showed mostly infarct with emily-infarct ischemia in the LAD territory and recurrent pulmonary edema -Patent stent. -Mild disease in LCx, RCA and px to mid LAD. distal LAD with distal short OM with severe stenosis. Too small to be intervened. RHC with elevated PCWP and PA pressure. -Continue current medications. -increase imdur to 60 mg am and 30 mg PM. Uptitrate based on BP. May switch to ISDN per renal. -f/u in 2 weeks with Nabila Hall. Thank you for involving us with care of this patient. We will continue to follow. Please call with questions Attestations Medical Necessity Statement*: stable to be discharged Coding Level of Care Code Acute Systems Administration Analyst for [place] Fwd Diagnoses CHF exacerbation I50.9 Positive cardiac stress test R94.39 ESRD on hemodialysis N18.6; Z99.2 HTN (hypertension) I10 Acute and chronic respiratory failure J96.20 CAD (coronary artery disease) I25.118 Associated angina: with stable angina Coronary Disease-Associated Artery/Lesion type: [place] artery [place] vs. transplanted heart: [place] heart
--- NOTE | 2021-10-24 07:19 | W.PM.OPSUD ---
Surgery/Procedure H&P Update DATE OF PROCEDURE: October 24, 2021 DATE H&P PERFORMED: 10/23/21 H&P UPDATE INFORMATION: I have reviewed H&P completed within last 30 days, I have examined patient prior to procedure and No changes to prior documentation PREOP DIAGNOSIS: Recurrent decompensated CHF, Mildly abnormal stress test PRIMARY INDICATION FOR PROCEDURE: Recurrent decompensated CHF, Mildly abnormal stress test PLANNED PROCEDURE: Left and right heart cathetarization PATIENT REASSESSED PRIOR TO SEDATION, WITH NO CHANGE NOTED: Yes PHYSICAL EXAM: alert, oriented x 3, clear to auscultation bilaterally and regular rate & rhythm AIRWAY EVAL/ANESTHESIA PLAN: normal airway, ASA III, Monitored Anesthesia, Local Anesthesia, Risks, benefits & alternatives of sedation and/or procedure discussed and Patient agrees to continue as planned
[2021-10-24] MEDS: docusate sodium 100 mg Capsule PO (09:19)
[2021-10-24] MEDS: cholecalciferol (vitamin D3) 1,000 unit Tablet 1000 UNIT PO (09:19)
[2021-10-24] MEDS: escitalopram 10 mg Tablet 20 MG PO (09:19)
[2021-10-24] MEDS: aspirin 81 mg Chew Tablet PO (09:26)
[2021-10-24] MEDS: amlodipine 10 mg Tablet PO (09:27)
[2021-10-24] MEDS: clopidogrel 75 mg Tablet PO (09:29)
--- NOTE | 2021-10-24 10:07 | PM.PN ---
Subjective Subjective: Ms. Herzog just returned from the Security Operations Engineer. Per RN report no intervention was required. Formal report is currently pending. She is currently comfortable, no acute issues. Breathing comfortably on 2 L nasal cannula. This is her baseline requirement for oxygen. No extremity edema etc. Vitals/I&O/Wt Last Vital Signs Temp 97.5 F L 10/24/21 03:45 Pulse 59 L 10/24/21 09:40 Resp 15 10/24/21 03:45 BP 155/65 10/24/21 05:41 Pulse Ox 93 10/24/21 09:40 10/23/21 10/24/21 10/24/21 22:59 06:59 14:59 Intake Total 480 / 480 480 / 960 Output Total 200 / 200 Balance 480 / 480 280 / 760 Physical Exam Narrative: Constitutional: Awake, comfortable HEENT: Wet mucosa, no jvp, non icteric Lungs: Bilaterally clear without discernible wheeze, rales in all lung zones CVS: S1 S2, no murmurs Abdo: Soft, BS ok Ext 4: Minimal edema, peripheral perfusion with no cyanosis Neurological: Grossly non-focal Data : 10/23/21 03:46 10/24/21 03:45 Micro: Microbiology 10/22/21 10:12 Blood Culture - Preliminary Blood NEGATIVE TO DATE 10/22/21 10:08 Blood Culture - Preliminary Blood NEGATIVE TO DATE A&P Assessment and plan (1) ESRD on hemodialysis: Status: Acute Plan 1. ESRD Dialysis pending for today Continue Wednesday, Wednesday and Wednesday schedule Dose medication for GFR less than 15 2. ACS Status post C, formal report pending, apparently medical therapy and no intervention required. Management per cardiology Additional ultrafiltration today will be helpful. 3. Hemodynamics Blood pressure robust 155/65 his last measured, she should be able to tolerate additional ultrafiltration today well. 4. Chronic ESRD issues To be handled and managed as an outpatient, continue home medication. 5. Dispo Possible discharge today after dialysis, certainly okay if okay with other team members. Zhou Mcfarland MD Nephrology [phone] Patient seen and examined via telemedicine, with the assistance of the bedside RN > 25 min spent in evaluation and mgmt of patient Attestations Medical Necessity Statement*: Eval for ESRD mgmt Coding Level of Care Code Acute Commissioning Editor for Chg Fwd Diagnoses ESRD on hemodialysis N18.6; Z99.2
[2021-10-24] MEDS: carvedilol 3.125 mg Tablet PO (10:14)
--- NOTE | 2021-10-24 11:51 | P.DS_ITS ---
Discharge Providers Date of Admission: 10/20/21 13:42 Date of Discharge: October 24, 2021 Attending Provider at Admission: Ewa Mccarty MD Attending Provider at Discharge: Flash Luciano MD Primary Care Provider: Jacob Sharp DO Diagnoses at Discharge Discharge Diagnosis (1) ESRD on hemodialysis: Status: Acute Reason for Visit Reason for Visit: sob Brief History: History as per HPI: Rizwana Herzog is a 56 year old female with past medical history of hypertension, diabetes, end-stage renal disease on dialysis Wednesday, gastroparesis, AKA, congestive heart failure with normal EF, chronic hypoxia on home oxygen, peripheral artery disease, coronary artery disease s tatus post PCI and drug-eluting stent 2019 presented to the hospital today with complaints of lightheadedness and shortness of breath.? She is due for dialysis today and recently had her dialysis catheter removed few hours ago.? She was here in ambulatory surgery today.? She became really short of breath and therefore was sent to the ER.? She has been feeling shortness of breath for the last 2 days prior to dialysis catheter removal as well.? She does not endorse eating out at a restaurant and was compliant to her diet.? She was discharged from the hospital 09/26/2021 and has been following up with cardiology since discharge.? She also saw her primary care doctor last week.? She says ever since her dialysis catheter was removed she started feeling short of breath.? Denies chest pain, abdominal pain, nausea, vomiting or diarrhea, constipation.? Right now and see patient does have conversational dyspnea and is short of breath to the point where she cannot really give me a history.? She is saturating 89% on room air.? She answers in very short phrases.? All other review of systems are negative.? She answers in yes and no questions. ED course: On arrival to ER blood pressure 163/74 requires 2020, pulse 69, temperature 98, pulse ox 92%.? She did have coarse breath sounds bilaterally and she was saturating 90 to 94% on room air with no increased work of breathing.? Chest x-ray was done which showed similar parenchymal disease compared to baseline.? Creatinine 6.8 which is also similar to baseline.? She was getting shortness of breath on exertion and lightheadedness.? CTA done which ruled out PE.? Nephrology was consulted for inpatient dialysis with close monitoring.? Hospitalist was called for admission. Hospital Course Hospital Course Patient was admitted to the hospital for further evaluation and management of hypoxia. Patient was found to have recurrent admissions recently for similar complaints. She was hypoxic secondary congestive heart failure Giurgius treated with extra session of dialysis. During hospitalization she was found to have uncontrolled hypertension especially on nondialysis days. Her medications were adjusted as per her blood pressures. On further review of chart it does seem that patient recently had a positive cardiac stress test which previously was decided to be managed medically. Because of recurrent admissions with similar complaints cardiology was consulted for possible left heart and right heart cath. Patient underwent cardiac catheterization on 10/24. Verbally as per the report patient had nonobstructive CAD though formal report is not currently present. Patient did not have any intervention. Patient had last session of dialysis post cardiac catheterization on 10/24. She has been discharged in hemodynamically stable condition with advised to follow-up with cardiology, pulmonology within next few weeks. She is to take clonidine 0.1 mg twice daily and 0.1 mg daily on as needed basis for systolic blood pressure of 160 especially on nondialysis days. Physical Exam Narrative: General: Alert oriented x3, patient seen laying in bed appearing comfortable. No conversational dyspnea noted. No use of accessory muscles. Normocephalic, atraumatic, EOMI, conversational dyspnea present, mild respiratory distress present. Cardio: Regular rate rhythm, normal S1-S2, S3 present. Respiratory: Coarse breath sounds bilaterally with mild crackles at bases, no wheezes GI: Abdomen soft, nontender, nondistended, bowel sounds + Behavior: Appropriate and cooperative Extremities: Trace edema bilateral lower extremities no cyanosis noted. Discharge Data Studies Completed and Pending Completed Studies During Hospitalization Category Date Time Status CTA chest [CT angio chest PE protcl [id number]] Urgent Cat Scan 10/20/21 12:48 Completed XR chest 1V portable [id number] Routine Exams 10/21/21 08:00 Completed XR chest 1V portable [id number] Urgent Exams 10/20/21 11:03 Completed US chest [id number] Urgent Ultrasound 10/22/21 09:00 Completed Pending at discharge Category Date Time Status QUALITY COORDINATOR request for service Routine Exams 10/24/21 07:17 Stop Req Blood Culture Routine Lab 10/22/21 10:12 Results Comprehensive Metabolic Panel AM LABS Lab 10/25/21 04:00 Ordered Comprehensive Metabolic Panel AM LABS Lab 10/26/21 04:00 Ordered Magnesium AM LABS Lab 10/25/21 04:00 Ordered Magnesium AM LABS Lab 10/26/21 04:00 Ordered Phosphorus AM LABS Lab 10/25/21 04:00 Ordered Phosphorus AM LABS Lab 10/26/21 04:00 Ordered Radiology Impressions Chest CTA 10/20/21 12:48 IMPRESSION: Some images degraded by breathing artifact. 1. No evidence of pulmonary embolus. Distal pulmonary arteries not well evaluated due to shallow inspiration and breathing artifact. 2. Small to moderate bilateral pleural effusions with compressive atelectasis in the lung bases. This is progressed compared to the CT September 03, 2021. Chest X-Ray 10/21/21 08:00 IMPRESSION: 1. Small bilateral pleural effusions and mild cardiomegaly. No improvement. 2. Mild improvement in pulmonary vascular congestion since the prior study. Chest Ultrasound 10/22/21 09:00 IMPRESSION: Small bilateral pleural effusions LEFT greater than RIGHT with compressive atelectasis. Laboratory Results WBC 4.2 10^3/uL (4.0-10.0) 10/23/21 03:46 RBC 3.52 10^6/uL (4.1-5.3) L 10/23/21 03:46 Hgb 11.0 g/dL (11.5-15.3) L 10/23/21 03:46 Hct 36.2 % (37.0-47.0) L 10/23/21 03:46 MCV 102.8 fl (81-99) H 10/23/21 03:46 MCH 31.3 pg (28.0-34.0) 10/23/21 03:46 MCHC 30.4 g/dL (30.0-36.0) 10/23/21 03:46 RDW 14.6 % (12.1-15.1) 10/23/21 03:46 Plt Count 156 10^3/cmm (130-400) 10/23/21 03:46 MPV 11.4 fL (7.4-10.4) H 10/23/21 03:46 Neut % (Auto) 63.7 % 10/23/21 03:46 Lymph % (Auto) 13.8 % 10/23/21 03:46 [place] % (Auto) 9.0 % 10/23/21 03:46 Eos % (Auto) 12.6 % 10/23/21 03:46 Baso % (Auto) 0.7 % 10/23/21 03:46 Neut # (Auto) 2.68 10^3/uL (1.8-7.7) 10/23/21 03:46 Lymph # (Auto) 0.6 10^3/uL (0.8-4.8) L 10/23/21 03:46 [place] # (Auto) 0.4 10^3/uL (0.2-0.9) 10/23/21 03:46 Eos # (Auto) 0.5 10^3/uL (0.0-0.8) 10/23/21 03:46 Baso # (Auto) 0.0 10^3/uL (0.0-0.1) 10/23/21 03:46 Nucleated RBC % (auto) 0 % 10/23/21 03:46 Nucleated RBCs # 0.0 /100WBC 10/23/21 03:46 PT 15.90 SECONDS (12.1-14.9) H 10/22/21 05:48 INR 1.23 (0.8-1.2) H 10/22/21 05:48 Specimen Type Arterial 10/20/21 15:30 Sample Site Brachial, right 10/20/21 15:30 ABG pH 7.33 (7.35-7.45) L 10/20/21 15:30 ABG pCO2 47.0 mmHg (35-45) H 10/20/21 15:30 ABG pO2 81.3 mmHg (80.0-100.0) 10/20/21 15:30 ABG HCO3 24.6 mmol/L (22-26) 10/20/21 15:30 ABG O2 Saturation 95.5 10/20/21 15:30 ABG Base Excess -1.7 mmol/L (-2.0-2.0) 10/20/21 15:30 Jason Test N/a 10/20/21 15:30 A-a O2 Gradient 1.3 mmHg (5-10) L 10/20/21 15:30 Hematocrit 36.2 % (37-47) L 10/20/21 15:30 Hgb O2 Saturation 93.5 % (95-100) L 10/20/21 15:30 Carboxyhemoglobin 1.2 %THgb (0.4-20.1) 10/20/21 15:30 Methemoglobin 1.0 % (0.4-1.5) 10/20/21 15:30 Total Hemoglobin 11.8 g/dL (12-16) L 10/20/21 15:30 Sodium 142.0 mmol/L (131-143) 10/20/21 15:30 Potassium 4.2 mmol/L (3.5-5.0) 10/20/21 15:30 Glucose 90.0 mg/dL (70-115) 10/20/21 15:30 Ionized Calcium 0.9 mmol/L (1.1-1.4) L 10/20/21 15:30 O2 Delivery Device Nc 10/20/21 15:30 O2 Liters/Min 2.0 % 10/20/21 15:30 Supervisor Filter Assembly ID Hinja 10/20/21 15:30 Sodium 137 mmol/L (136-145) 10/24/21 03:45 Potassium 4.6 mmol/L (3.5-5.1) 10/24/21 03:45 Chloride 99 mmol/L (98-107) 10/24/21 03:45 Carbon Dioxide 25 mmol/L (22-29) 10/24/21 03:45 Anion Gap 17.6 (5-19) 10/24/21 03:45 BUN 33 mg/dL (6-20) H 10/24/21 03:45 Creatinine 6.1 mg/dL (0.5-0.9) H* 10/24/21 03:45 GFR Calculation 7.1 mL/min (90-130) L 10/24/21 03:45 Glucose 126 mg/dL (65-115) H 10/24/21 03:45 POC Glucose 117 mg/dL (70-110) H 10/24/21 04:52 Calculated Osmolality 293 mOsm/kg (285-295) 10/24/21 03:45 Calcium 8.1 mg/dL (8.5-10.5) L 10/24/21 03:45 Phosphorus 5.5 mg/dL (2.5-4.5) H 10/24/21 03:45 Magnesium 2.0 mg/dL (1.7-2.3) 10/24/21 03:45 Iron 39 ug/dL (37-145) 10/22/21 05:48 TIBC 149 mcg/dl 10/22/21 05:48 % Saturation 26.1 % (20-50) 10/22/21 05:48 Unsat Iron Binding 110 ug/dL (112-347) L 10/22/21 05:48 Ferritin 431 ng/mL (15-150) H 10/22/21 05:48 Total Bilirubin 0.4 mg/dL (0.15-1.2) 10/24/21 03:45 AST 16 U/L (0-32) 10/24/21 03:45 ALT < 5 U/L (0-33) 10/24/21 03:45 Alkaline Phosphatase 146 IU/L (35-105) H 10/24/21 03:45 Troponin T Baseline 95 ng/L (0-10) H 10/20/21 11:50 Troponin T 120 Minute 83.61 ng/L (0-10) H 10/20/21 15:00 Delta Troponin T -11.39 ABS# (0-10) L 10/20/21 15:00 NT-Pro-B Natriuret Pep 47791 pg/mL (0-125) H 10/20/21 11:50 Total Protein 6.0 g/dL (6.6-8.7) L 10/24/21 03:45 Albumin 3.5 g/dL (3.5-5.2) 10/24/21 03:45 Globulin 2.5 g/dL (1.3-4.6) 10/24/21 03:45 25-OH Vitamin D Total 36 ng/mL (30-100) 10/21/21 05:13 1,25 Dihydroxy Vit D2 <8 pg/mL 10/20/21 14:25 1,25 Dihydroxy Vit D3 25 pg/mL 10/20/21 14:25 PTH Intact 456.5 pg/mL (15-65) H 10/21/21 05:13 Calcium (PTH Intact) 7.7 mg/dL (8.5-10.5) L 10/21/21 05:13 Hep Bs Antigen Non-reactive (Nonreactive) 10/20/21 14:25 Hep Bs Antibody 48.1 (11.5-1000) 10/20/21 14:25 Hepatitis C Antibody Non-reactive (Nonreactive) 10/20/21 14:25 Vitals Last Vital Signs Temp 97.5 F L 10/24/21 03:45 Pulse 59 L 10/24/21 09:40 Resp 15 10/24/21 03:45 BP 155/65 10/24/21 05:41 Pulse Ox 93 10/24/21 09:40 Discharge Plan Discharge Patient Disposition: Home Condition: Stable Prescriptions: New isosorbide mononitrate 30 mg Tablet Extended Release 24 Hr 30 mg PO 1800 Qty: 30 0RF Continued nitroglycerin 0.4 mg tablet, sublingual 0.4 mg SUBLINGUAL Q5M PRN (Reason: Chest Pain) Qty: 25 6RF furosemide 40 mg tablet 40 mg PO QAM Qty: 30 2RF escitalopram oxalate 20 mg tablet 20 mg PO DAILY 0RF amlodipine 10 mg tablet 10 mg PO DAILY 30 Days Qty: 30 2RF clonazepam 0.25 mg tablet,disintegrating 0.25 mg PO BID PRN (Reason: Anxiety) Qty: 30 0RF oxycodone 5 mg tablet 5 mg PO Q12H 30 Days Qty: 60 0RF cyclobenzaprine 10 mg tablet 10 mg PO TID PRN (Reason: muscle spasm) Qty: 30 2RF clonidine HCl 0.1 mg tablet 0.1 mg PO BID Qty: 60 5RF pantoprazole 40 mg tablet,delayed release (DR/EC) 40 mg PO DAILY@08 Qty: 90 3RF atorvastatin 40 mg tablet 40 mg PO DAILY@20 Qty: 90 3RF (DME) pen needle, diabetic [ReliOn Pen Cunningham] 32 gauge x 5/32 needle See Rx Instructions .ROUTE .MEDSUPPLY Qty: 100 6RF Rx Instructions: use for insulin injections (DME) PROSTHETIC SUPPLIES See Rx Instructions .Route .MEDSUPPLY Qty: 1 0RF Rx Instructions: As directed aspirin 81 mg Tablet,Chewable 81 mg PO DAILY@08 0RF Hold Instructions: Resume on 10/24/21. cholecalciferol (vitamin D3) [Vitamin D3] 25 mcg (1,000 unit) Tablet 25 mcg PO DAILY@08 0RF omega 9-rbl-egh-fish oil [Fish Oil] 300-1,000 mg Capsule,Delayed Release(Dr/Ec) 1 cap PO BID@08,20 0RF Glucosamine Chondroitin 550-30-1 mg Capsule 1 cap PO DAILY 0RF hydralazine 25 mg Tablet 25 mg PO TID Qty: 90 0RF Rx Instructions: Measure your blood pressure before taking this pill. Do not take the pill if your blood pressure is below 130 carvedilol 3.125 mg Tablet 3.125 mg PO BID Qty: 60 0RF clopidogrel 75 mg Tablet 75 mg PO DAILY 0RF isosorbide mononitrate 60 mg Tablet Extended Release 24 Hr 60 mg PO QAM 0RF ondansetron HCl 8 mg tablet 8 mg PO Q8H PRN (Reason: Nausea And Vomiting) 0RF Dialyvite 100-1 mg tablet 1 tab PO DAILY 0RF levothyroxine [Euthyrox] 150 mcg tablet 150 mcg PO QAM 0RF Lantus Solostar U-100 Insulin 100 unit/mL (3 mL) insulin pen 5 unit SUBCUT BID@ Qty: 15 12RF Discharge Orders: Discharge Order (Routine); Ordered 10/24/21 Ordered By: Flash Luciano Referrals: Jacob Sharp DO [Primary Care Provider] - 2 weeks Soraya Ignacio MD [Physician] - 2 weeks Discharge Diet: Usual diet Discharge Activity: Resume usual activity and Increase activity as tolerated Patient Instructions: Opioid Safety Activity Restrictions/Additional Instructions: take clonidine 0.1 mg twice daily and 0.1 mg daily on as needed basis for systolic blood pressure of 160 millimeters Hg especially on nondialysis days. Imdur has been changed to 60 mg in the morning and 30 mg in evening. Please continue with the dialysis session as before. Discharge Attestations Time Spent in Discharge Care*: greater than 30 min Specific Discharge Activities: educating patient, discussing with pcp/other providers, discussing with showcase trimmer/social workers/dc planners, documenting/other paperwork and evaluating patient/reviewing data Status at Discharge: Cognitive status at discharge: cognitively intact , Behavioral status at discharge: cooperative , Functional status at discharge: other assisted ambulation , Overall status at discharge: patient is back to baseline Quality Metrics Clinical Quality Measures [ No reported AMI, CVA or VTE this stay] Coding Level of Care Code Acute Chg FW DC note Diagnoses ESRD on hemodialysis N18.6; Z99.2
--- NOTE | 2021-10-24 17:07 | PC.NURSE ---
pt returned from dialysis. cath sit cdi, no s/s of complications, post cath instructions given to pt. verbalized understanding, no futher questions. pt left via personal wheelchair with her prosthetic and all other belongings with her spouse to personal vehicle. follow up appt made with [facility], unable to make contact with heart care due to them no answering their phones.
--- NOTE | 2021-10-24 17:31 | PC.HD ---
[place] through treatment (ultrafiltration only) pt's BP dropped to 73/47. UF off and BP rechecked, 80/46. Pt asymptomatic. Waited several minutes but BP grace up to 84/48. Dr Gordon ntfd and treatment terminated per order. Post treatment BP 109/59.
== END 2021-10-24 17:05 | disposition home or self-care (01) ==
LOC: ER 13:46 → MEDSURG 17:12 → CSU 10-24 07:12 → MEDSURG 10-24 15:59
PROVIDERS: Internal Medicine Cardiovascular Disease; Internal Medicine Nephrology; Admitting Provider Internal Medicine; Emergency Provider Emergency Medicine; PCP Family Medicine; Visit Provider Student in an Organized Health Care Education/Training Program
DX: E11.22 Type 2 diabetes mellitus with diabetic chronic kidney disease (principal); I13.2 Hypertensive heart and chronic kidney disease with heart failure and with stage 5 chronic kidney disease, or end stage renal disease; N18.6 End stage renal disease; Z99.2 Dependence on renal dialysis; I50.30 Unspecified diastolic (congestive) heart failure; Z99.81 Dependence on supplemental oxygen; I25.118 Atherosclerotic heart disease of native coronary artery with other forms of angina pectoris; D63.1 Anemia in chronic kidney disease; D69.6 Thrombocytopenia, unspecified; G47.33 Obstructive sleep apnea (adult) (pediatric); F41.1 Generalized anxiety disorder; K21.9 Gastro-esophageal reflux disease without esophagitis; E78.5 Hyperlipidemia, unspecified; E03.9 Hypothyroidism, unspecified; Z86.73 Personal history of transient ischemic attack (TIA), and cerebral infarction without residual deficits; Z79.4 Long term (current) use of insulin; I65.23 Occlusion and stenosis of bilateral carotid arteries
CPT/HCPCS: 32555; 36415; 36416; 36600; 71045; 71275; 76604; 80048; 80051; 80053; 82306; 82310; 82330; 82652; 82728; 82805; 82962; 83540; 83550; 83735; 83880; 83970; 84100; 84484; 85025; 85610; 86706; 86803; 87040; 87340; 93005; 93453; 93460; 94660; 94664; 96360; 96361; 96374; 96375; 99152; 99153; 99291; C1751; C1769; C1887; C1894; C9113; G0378; J0360; J1644; J2250; J2405; J3010; J3490; Q3014; Q9967

== ENCOUNTER 2021-11-17 11:00 | Observation (INO) | payer MEDICARE, MEDICAID, SELFPAY ==
[2021-11-17 11:04] VITALS: BP 146/71; PULSE 78; RESP 14; TEMP 36.5; O2SAT 98; BMI 31.4
--- NOTE | 2021-11-17 11:12 | ECG_ITS ---
[facility] Test Date: 2021-11-17 Pat Name: Rizwana Herzog Department: Room: Gender: Female Barrel Planer: : 1965 Requested By: Karan Lepe Order Number: [id number] Catherine MD: Gerald Smith M.D. Measurements Intervals [place] Rate: 77 P: -12 SC: 196 QRS: -47 QRSD: 88 T: 48 QT: 414 QTc: 471 Interpretive Statements SINUS RHYTHM LEFT AXIS DEVIATION [QRS AXIS < -30] POSSIBLE ANTERIOR MYOCARDIAL INFARCTION , PROBABLY OLD [30 ms Q WAVE IN V3/V4, OR R < 0.2 mV IN V4] Compared to ECG 10/20/2021 17:01:59 No significant changes Electronically Signed On 11-17-2021 19:41:19 CDT by Gerald Smith M.D. [id number]
--- NOTE | 2021-11-17 11:26 | XRR_ITS ---
PROCEDURE INFORMATION: Exam: XR Chest Exam date and time: 11/17/2021 11:46 AM Age: 56 years old Clinical indication: Dyspnea; Prior surgery; Surgery type: --2 stents x1 1/2 yr ago TECHNIQUE: Imaging protocol: XR of the chest. Views: 1 view. Total images: 2 COMPARISON: CR XR chest 1V portable [id number] 10/21/2021 5:32 AM FINDINGS: Lungs: Nonspecific bibasilar opacities, favoring atelectasis or pneumonia. Pleural spaces: There is blunting of both costophrenic angles, suggestive of small pleural effusions. Heart/Mediastinum: Heart is enlarged but stable when compared to the prior exam. Vasculature: Atherosclerosis is evident. Bones/joints: Osseous structures are unchanged from the prior exam. XR/XR chest 1V portable [id number] IMPRESSION: 1. Nonspecific bibasilar opacities, favoring atelectasis or pneumonia. 2. There is blunting of both costophrenic angles, suggestive of small pleural effusions. 3. Heart is enlarged but stable when compared to the prior exam.
[2021-11-17 12:11] LABS: Basophils # 0.1 10^3/uL (0.0-0.1); Basophils % 0.8 %; Eosinophils # 0.1 10^3/uL (0.0-0.8); Eosinophils % 2.1 %; Hematocrit 39.8 % (37.0-47.0); Hemoglobin 13.1 g/dL (11.5-15.3); Lymphocytes # 0.5 10^3/uL (0.8-4.8); Lymphocytes % 8.6 %; Mean Corpuscular HGB Conc 32.9 g/dL (30.0-36.0); Mean Corpuscular Hemoglobin 31.6 pg (28.0-34.0); Mean Corpuscular Volume 95.9 fl (81-99); Mean Platelet Volume 11.3 fL (7.4-10.4); Monocytes # 0.5 10^3/uL (0.2-0.9); Monocytes % 7.3 %; Neutrophils # 5.09 10^3/uL (1.8-7.7); Neutrophils % 80.6 %; Nucleated Red Blood Cells % 0 %; Platelet Count 178 10^3/cmm (130-400); Red Blood Count 4.15 10^6/uL (4.1-5.3); Red Cell Distribution Width 15.3 % (12.1-15.1); White Blood Count 6.3 10^3/uL (4.0-10.0)
[2021-11-17 12:21] VITALS: BP 133/71; PULSE 77; RESP 15; O2SAT 93
[2021-11-17 12:29] LABS: Alanine Aminotransferase 13 U/L (0-33); Alkaline Phosphatase 132 IU/L (35-105); Aspartate Amino Transferase 20 U/L (0-32); Blood Urea Nitrogen 37 mg/dL (6-20); Calcium 6.7 mg/dL (8.5-10.5); Carbon Dioxide 24 mmol/L (22-29); Chloride 100 mmol/L (98-107); Globulin 2.7 g/dL (1.3-4.6); Glucose 112 mg/dL (65-115); Osmolality Calculated 299 mOsm/kg (285-295); Sodium 140 mmol/L (136-145); Total Bilirubin 0.5 mg/dL (0.15-1.2); Total Protein 6.7 g/dL (6.6-8.7)
[2021-11-17 12:44] LABS: Troponin(5th) Baseline 131 ng/L (0-10)
[2021-11-17 12:46] LABS: Anion Gap 21.8 (5-19); Potassium 5.8 mmol/L (3.5-5.1)
--- NOTE | 2021-11-17 13:12 | ECG_ITS ---
[facility] Test Date: 2021-11-17 Pat Name: Rizwana Herzog Department: Room: Gender: Female Knitter Machine: : 1965 Requested By: Karan Lepe Order Number: [id number] Catherine MD: Gerald Smith M.D. Measurements Intervals [place] Rate: 75 P: -26 AL: 186 QRS: -54 QRSD: 86 T: 57 QT: 428 QTc: 481 Interpretive Statements SINUS RHYTHM LEFT AXIS DEVIATION [QRS AXIS < -30] POSSIBLE ANTERIOR MYOCARDIAL INFARCTION , PROBABLY OLD [30 ms Q WAVE IN V3/V4, OR R < 0.2 mV IN V4] Compared to ECG 11/17/2021 11:36:24 No significant changes Electronically Signed On 11-17-2021 19:46:09 CDT by Gerald Smith M.D. [id number]
--- NOTE | 2021-11-17 13:23 | PC.NURSE ---
EKG done at 1315 and shown to ER doctor
[2021-11-17 14:38] LABS: Troponin 5 2HR Delta -3.6 ABS# (0-10)
[2021-11-17 14:39] LABS: Troponin 5 2HR 127.4 ng/L (0-10)
--- NOTE | 2021-11-17 15:13 | ED_ITS ---
HPI - Weakness General: Chief complaint: Weakness Stated complaint: weakness sob Time Seen by Provider: 11/17/21 11:02 Source: patient Mode of arrival: ambulatory Limitations: no limitations History of Present Illness: 56-year-old female comes in complaining shortness of breath some slight chest discomfort.Patient had a stress test done September 24 of this year that was questionably abnormal then subsequently was in the [employer] on 10/24/2021 there is no significant coronary artery disease. Today's cli everett shortness of breath and some chest discomfort. She is due for dialysis today. No fever sweats chills or productive cough. MD Complaint: generalized weakness Onset (ago): minute(s) Duration: intermittent Severity: mild Relieving factors: none Exacerbating factors: none Associated symptoms: Reports chest pain; Denies chills, confusion, melena, decreased appetite, diaphoresis, dysuria, easy bruising, fever(s), headache(s), myalgias, nausea, rash, short of breath, syncope or vomiting Review of Systems Const: Denies: fever(s), chills, fatigue, malaise or diaphoresis ENMT: Denies: throat pain, ear or mastoid pain, nasal discharge or nasal congestion Card: Reports: chest pain, edema and swelling of feet/ankles; Denies: palpitations, irregular heart rhythm or syncope Resp: Denies: dyspnea, productive cough or non-productive cough GI: Denies: nausea, vomiting or melena : Denies: dysuria Skin/Breast: Denies: rash or pruritus Neuro: Denies: headache(s) or confusion Refugio/Lymph: Denies: easy bruising PFSH ED PFSH: Medical History Adjustment disorder with mixed disturbance of emotions and conduct Anemia in chronic kidney disease Anxiety BPPV (benign paroxysmal positional vertigo) CAD (coronary artery disease) Carotid stenosis 04/2020: Right < 50%, Left near 70% Chronic diastolic CHF (congestive heart failure) 12/2020 EF 55%, grade II/IV diastolic dysfunction Chronic kidney disease Chronic left sacroiliac joint pain CKD (chronic kidney disease) stage 5, GFR less than 15 ml/min Claustrophobia Compressive atelectasis Congestive heart failure Diabetes mellitus Diabetes mellitus, with long-term current use of insulin Diverticulitis Elevated troponin End stage renal disease ESBL (extended spectrum beta-lactamase) producing bacteria infection ESRD (end stage renal disease) on dialysis DAILY (generalized anxiety disorder) Gastroparesis GERD (gastroesophageal reflux disease) Gram-negative bacteremia Hemodialysis catheter dysfunction HTN (hypertension) Hyperlipidemia Hypocalcemia due to chronic kidney disease Hypothyroidism Hypoxemia Lumbar back pain Major depression, recurrent Mixed dyslipidemia DOROTEO on CPAP PAD (peripheral artery disease) Partial nontraumatic amputation of left foot (~06/2019) Peripheral vascular disease Peritonitis associated with peritoneal dialysis Phantom pain Pneumonia due to COVID-19 virus (~12/2020) Positive cardiac stress test Sleep apnea Suicidal ideation TIA (transient ischemic attack) Vitamin D deficiency Surgical History AV (arteriovenous fistula) (~10/2020) H/O hysterectomy with oophorectomy History of appendectomy History of cataract surgery History of heart artery stent PCI to LAD, done in [place], [place] 10/2018 ENRIQUE to mid LAD at [facility] 04/2020 History of hysterectomy History of left heart catheterization 04/2020 Findings: 1. There is severe coronary artery disease. 2. FFR of mid LAD was 0.76. 3. Severe OM 2 stenosis. However this is a small sized distal vessel. 4. Mid Left Anterior Descending Coronary Artery was treated with Balloon and Drug Eluting Stent History of right below knee amputation Peritoneal dialysis catheter in place Removed due to recurrent peritonitis S/P cholecystectomy S/P PICC central line placement (~2019) Status post amputation of toe Family History Denies family history of CAD (coronary artery disease) Clotting disorder Dementia Bleeding disorder Social History Smoking and tobacco status: never smoked Alcohol intake: never Household members: spouse and family History of recent travel: No Physical Exam Const: COMMON NORMALS: no acute distress GENERAL APPEARANCE: cooperative and comfortable ORIENTATION/CONSCIOUSNESS: Yes awake, Yes oriented to person, Yes oriented to place and Yes oriented to time HENMT: COMMON NORMALS: normocephalic, atraumatic and hearing grossly normal bilaterally HEAD & SCALP: normocephalic and atraumatic Neck/C-Spine: COMMON NORMALS: no JVD Resp: COMMON NORMALS: normal respiratory effort, No retractions, No use of accessory muscles and clear to auscultation bilaterally AUSCULTATION: clear to auscultation bilaterally Cardio: COMMON NORMALS: no JVD, regular rate, regular rhythm and No murmurs present (Cardio) RATE: regular rate RHYTHM: regular rhythm GI: COMMON NORMALS: Soft to palpation and No hepatosplenomegaly present AUSCULTATION: Yes normoactive bowel sounds PALPATION: Yes Soft to palpation, No Tenderness to palpation present (GI), No Guarding due to palpation present (GI) and Yes No hepatosplenomegaly present Extremity: COMMON NORMALS: normal to inspection, capillary refill normal and no calf tenderness GENERAL: Yes edema Neuro: SENSORIUM/ORIENTATION: Yes oriented to person, Yes oriented to place and Yes oriented to time Skin: COMMON NORMALS: no rashes or lesions noted GENERAL SKIN EXAM: no rashes or lesions noted Course Vital Signs: Vital signs: Vital Signs Temperature 98.4 F 11/19/21 20:45 Pulse Rate 82 11/19/21 21:51 Respiratory Rate 18 11/19/21 21:51 Blood Pressure 146/75 11/19/21 21:51 Pulse Oximetry 96 11/19/21 21:51 MDM - Weakness Medical Decision Making Patient has recently had a angiogram which was negative. At this point she basically needs dialysis we are going to try to get her discharged to the dialysis clinic secondary to her dialysis run however there was a delay in getting her out after discharge was completed then she was not able to get a ride for period of time by the time she all this was completed it was too late in the day for her dialysis run we contacted her had her come back to the emergency room and we will admit her for dialysis here I am afraid at this point she cannot wait 48 hours for her next dialysis run she will still have to be placed in observation dialyzed. Medical Records I reviewed the patient's medical records. Lab Data I reviewed the patient's lab results. : 11/19/21 03:20 11/19/21 03:20 Radiology Impressions Chest X-Ray 11/17/21 11:26 IMPRESSION: 1. Nonspecific bibasilar opacities, favoring atelectasis or pneumonia. 2. There is blunting of both costophrenic angles, suggestive of small pleural effusions. 3. Heart is enlarged but stable when compared to the prior exam. Laboratory Results WBC 6.3 10^3/uL (4.0-10.0) 11/17/21 11:55 RBC 4.15 10^6/uL (4.1-5.3) 11/17/21 11:55 Hgb 13.1 g/dL (11.5-15.3) 11/17/21 11:55 Hct 39.8 % (37.0-47.0) 11/17/21 11:55 MCV 95.9 fl (81-99) 11/17/21 11:55 MCH 31.6 pg (28.0-34.0) 11/17/21 11:55 MCHC 32.9 g/dL (30.0-36.0) 11/17/21 11:55 RDW 15.3 % (12.1-15.1) H 11/17/21 11:55 Plt Count 178 10^3/cmm (130-400) 11/17/21 11:55 MPV 11.3 fL (7.4-10.4) H 11/17/21 11:55 Neut % (Auto) 80.6 % 11/17/21 11:55 Lymph % (Auto) 8.6 % 11/17/21 11:55 Kerr % (Auto) 7.3 % 11/17/21 11:55 Eos % (Auto) 2.1 % 11/17/21 11:55 Baso % (Auto) 0.8 % 11/17/21 11:55 Neut # (Auto) 5.09 10^3/uL (1.8-7.7) 11/17/21 11:55 Lymph # (Auto) 0.5 10^3/uL (0.8-4.8) L 11/17/21 11:55 Kerr # (Auto) 0.5 10^3/uL (0.2-0.9) 11/17/21 11:55 Eos # (Auto) 0.1 10^3/uL (0.0-0.8) 11/17/21 11:55 Baso # (Auto) 0.1 10^3/uL (0.0-0.1) 11/17/21 11:55 Nucleated RBC % (auto) 0 % 11/17/21 11:55 Nucleated RBCs # 0.0 /100WBC 11/17/21 11:55 Sodium 140 mmol/L (136-145) 11/17/21 11:55 Potassium 5.8 mmol/L (3.5-5.1) H 11/17/21 11:55 Chloride 100 mmol/L (98-107) 11/17/21 11:55 Carbon Dioxide 24 mmol/L (22-29) 11/17/21 11:55 Anion Gap 21.8 (5-19) H 11/17/21 11:55 BUN 37 mg/dL (6-20) H 11/17/21 11:55 Creatinine 7.1 mg/dL (0.5-0.9) H* 11/17/21 11:55 GFR Calculation 6.0 mL/min (90-130) L 11/17/21 11:55 Glucose 112 mg/dL (65-115) 11/17/21 11:55 Calculated Osmolality 299 mOsm/kg (285-295) H 11/17/21 11:55 Calcium 6.7 mg/dL (8.5-10.5) L 11/17/21 11:55 Total Bilirubin 0.5 mg/dL (0.15-1.2) 11/17/21 11:55 AST 20 U/L (0-32) 11/17/21 11:55 ALT 13 U/L (0-33) 11/17/21 11:55 Alkaline Phosphatase 132 IU/L (35-105) H 11/17/21 11:55 Troponin T Baseline 131 ng/L (0-10) H* 11/17/21 11:55 Troponin T 120 Minute 127.4 ng/L (0-10) H 11/17/21 13:58 Delta Troponin T -3.6 ABS# (0-10) L 11/17/21 13:58 Total Protein 6.7 g/dL (6.6-8.7) 11/17/21 11:55 Albumin 4.0 g/dL (3.5-5.2) 11/17/21 11:55 Globulin 2.7 g/dL (1.3-4.6) 11/17/21 11:55 Lipase 14 U/L (13-60) 11/17/21 13:50 Hep Bs Antigen Non-reactive (Nonreactive) 11/17/21 11:55 Hep Bs Antibody 37.1 (11.5-1000) 11/17/21 11:55 Hepatitis C Antibody Non-reactive (Nonreactive) 11/17/21 11:55 Discharge Plan Discharge Patient Disposition: Admitted As Inpatient Admit Provider: Calvin Zamorano Clinical Impression: Atypical chest pain, End-stage renal disease (ESRD) Condition: Stable Discharge Diet: Usual diet Discharge Activity: Resume usual activity Coding Level of Care Code ED Care Program Director for Maris Braden
[2021-11-17 15:20] VITALS: BP 155/82; PULSE 75; RESP 14; O2SAT 92
[2021-11-17 18:04] VITALS: BP 165/93; PULSE 75; RESP 17; O2SAT 92
[2021-11-17 18:30] VITALS: BP 166/78; PULSE 78; RESP 24; O2SAT 92
--- NOTE | 2021-11-17 18:55 | P.HP_ITS ---
Providers/Chief Complaint Admitting Physician: Calvin Zamorano Primary Care Provider: Jacob Sharp DO Chief Complaint: weakness sob History of Present Illness 56-year-old lady with a number of chronic conditions including ESRD getting hemodialysis via fistula MWF, presents to ER due to feeling of chest pressure, shortness of breath, she had called dialysis center today and they had advised her to ER. She is currently saturating 92% on 2 L nasal cannula, not normally on oxygen, chest x-ray with noted nonspecific bibasilar opacities favoring atelectasis versus pneumonia, blunting of both costophrenic angles suggesting small pleural effusions, heart with enlargement, stable from prior. Baseline troponin is 131. 2-hour troponin 127. EKG without specific changes. Her latest echocardiogram in August was normal. She had previously abnormal stress test in September which after similar presentation was followed up with coronary angiography which revealed Mild disease in LCx, RCA and px to mid LAD. Distal LAD with distal short OM with 80% stenosis. Too small to be intervened. RHC with elevated PCWP and PA pressure. During the same admission. CT angiogram chest 10/22 without evidence of PE. Small to moderate bilateral pleural effusions with compressive atelectasis in both lung bases. Nephrology is being consulted in ER for hemodialysis. She expresses concern whether her blood pressure medication amlodipine could be causing fluid overload. Would like to have it discontinued if possible. Review of Systems Const: Denies: fever(s), chills, body aches or malaise Eyes: Denies: change in vision, eye discomfort or eye redness ENMT: Denies: throat pain, oral sores or ear or mastoid pain Card: Reports: chest pain; Denies: edema, pre-syncope or dyspnea on exertion Resp: Reports: dyspnea; Denies: productive cough, change in phlegm color or hemoptysis GI: Reports: nausea; Denies: abdominal pain, vomiting, diarrhea, constipation, hematochezia or melena : Denies: flank pain, urinary frequency or hematuria Musc: Denies: back pain, joint swelling or joint redness Skin/Breast: Denies: rash or new lesions Neuro: Denies: headache(s), numbness in extremities, weakness in extremities, dizziness, confusion or seizure-like activity Endo: Denies: polyuria or polydipsia Refugio/Lymph: Denies: easy bleeding or tender lymph nodes All/Imm: Denies: urticaria or tongue swelling Medications/Allergies Home Medications Medication Instructions Recorded Confirmed Last Taken Type aspirin 81 mg chewable tablet 81 mg PO DAILY@08 06/25/19 11/17/21 11/17/21 History omega 4-uje-ymx-fish oil 300 1 cap PO BID@08,01/17/20 11/17/21 11/17/21 History mg-1,000 mg capsule,delayed release (Fish Oil) nitroglycerin 0.4 mg sublingual 0.4 mg SUBLINGUAL Q5M PRN #25 tab 03/26/20 11/17/21 04/18/20 Rx tablet cholecalciferol (vitamin D3) 25 25 mcg PO DAILY@08 05/14/20 11/17/21 11/17/21 History mcg (1,000 unit) tablet (Vitamin D3) pantoprazole 40 mg tablet,delayed 40 mg PO DAILY@08 #90 tab 04/02/21 11/17/21 11/17/21 Rx release pen needle, diabetic 32 gauge x #100 ea 06/17/21 11/17/21 Unknown Rx 5/32 ([facility] [place]) amlodipine 10 mg tablet 10 mg PO DAILY 30 Days #30 tab 07/22/21 11/17/21 11/17/21 Rx escitalopram oxalate 20 mg tablet 20 mg PO DAILY 07/22/21 11/17/21 11/17/21 History furosemide 40 mg tablet 40 mg PO QAM #30 tab 08/12/21 11/17/21 11/17/21 Rx PROSTHETIC SUPPLIES #1 ea 08/21/21 11/17/21 Unknown Rx ondansetron HCl 8 mg tablet 8 mg PO Q8H PRN 09/02/21 11/17/21 10/13/21 History vitamin B complex-vitamin C 100 1 tab PO DAILY 09/02/21 11/17/21 11/17/21 History mg-folic acid 1 mg tablet (Dialyvite) insulin glargine 100 unit/mL (3 5 unit (0.05 mL) SUBCUT BID@08,20 09/05/21 11/17/21 11/17/21 Rx mL) subcutaneous pen (Lantus #15 ml Solostar U-100 Insulin) glucosamine sulf dipot 1 cap PO DAILY 09/22/21 11/17/21 11/17/21 History chlr,msm,chond 550 mg-C 30 mg-janet 1 mg capsule (Glucosamine Chondroitin) carvedilol 3.125 mg tablet 3.125 mg PO BID #60 tab 09/26/21 11/17/21 10/20/21 Rx hydralazine 25 mg tablet 25 mg PO TID #90 tab 09/26/21 11/17/21 10/19/21 Rx clonazepam 0.25 mg disintegrating 0.25 mg PO BID PRN #30 tab 10/14/21 11/17/21 10/19/21 Rx tablet oxycodone 5 mg tablet 5 mg PO Q12H 30 Days #60 tab 10/14/21 11/17/21 11/17/21 Rx isosorbide mononitrate 30 mg 30 mg PO 1800 #30 tab 10/24/21 11/17/21 11/17/21 Rx tablet,extended release 24 hr levothyroxine 150 mcg tablet 150 mcg PO QAM #90 tab 11/04/21 11/17/21 11/17/21 Rx (Euthyrox) cyclobenzaprine 10 mg tablet 10 mg PO TID PRN #30 tab 11/13/21 11/17/21 Unknown Rx Allergies Allergy/AdvReac Type Severity Reaction Status Date / Time metformin [From Glucophage] Allergy Severe Unknown Verified 11/17/21 11:04 venlafaxine [From Effexor] Allergy Severe ADR-Shakine Verified 11/17/21 11:04 PFSH Acute PFSH: Medical History (Updated 11/17/21 @ 19:07 by Calvin Zamorano MD) Adjustment disorder with mixed disturbance of emotions and conduct Anemia in chronic kidney disease Anxiety BPPV (benign paroxysmal positional vertigo) CAD (coronary artery disease) Carotid stenosis 04/2020: Right < 50%, Left near 70% Chronic diastolic CHF (congestive heart failure) 12/2020 EF 55%, grade II/IV diastolic dysfunction Chronic kidney disease Chronic left sacroiliac joint pain CKD (chronic kidney disease) stage 5, GFR less than 15 ml/min Claustrophobia Compressive atelectasis Congestive heart failure Diabetes mellitus Diabetes mellitus, with long-term current use of insulin Diverticulitis Elevated troponin End stage renal disease ESBL (extended spectrum beta-lactamase) producing bacteria infection ESRD (end stage renal disease) on dialysis DAILY (generalized anxiety disorder) Gastroparesis GERD (gastroesophageal reflux disease) Gram-negative bacteremia Hemodialysis catheter dysfunction HTN (hypertension) Hyperlipidemia Hypocalcemia due to chronic kidney disease Hypothyroidism Hypoxemia Lumbar back pain Major depression, recurrent Mixed dyslipidemia DOROTEO on CPAP PAD (peripheral artery disease) Partial nontraumatic amputation of left foot (~06/2019) Peripheral vascular disease Peritonitis associated with peritoneal dialysis Phantom pain Pneumonia due to COVID-19 virus (~12/2020) Positive cardiac stress test Sleep apnea Suicidal ideation TIA (transient ischemic attack) Vitamin D deficiency Surgical History AV (arteriovenous fistula) (~10/2020) H/O hysterectomy with oophorectomy History of appendectomy History of cataract surgery History of heart artery stent PCI to LAD, done in [place], [place] 10/2018 ENRIQUE to mid LAD at [facility] 04/2020 History of hysterectomy History of left heart catheterization 04/2020 Findings: 1. There is severe coronary artery disease. 2. FFR of mid LAD was 0.76. 3. Severe OM 2 stenosis. However this is a small sized distal vessel. 4. Mid Left Anterior Descending Coronary Artery was treated with Balloon and Drug Eluting Stent History of right below knee amputation Peritoneal dialysis catheter in place Removed due to recurrent peritonitis S/P cholecystectomy S/P PICC central line placement (~2019) Status post amputation of toe Family History Denies family history of CAD (coronary artery disease) Clotting disorder Dementia Bleeding disorder Social History Smoking and tobacco status: never smoked Alcohol intake: never Household members: spouse and family History of recent travel: No Vitals/I&O/Wt Last Vital Signs Temp 97.7 F 11/17/21 11:04 Pulse 78 11/17/21 18:30 Resp 24 H 11/17/21 18:30 BP 166/78 11/17/21 18:30 Pulse Ox 92 11/17/21 18:30 Weight last 48 hrs Weight 85.729 kg Physical Exam Const: COMMON NORMALS: alert GENERAL APPEARANCE: cooperative ORIENTATION/CONSCIOUSNESS: Yes awake HENMT: COMMON NORMALS: normocephalic, EAC's normal, Normal external nose present and moist oral mucous membranes HEAD & SCALP: normocephalic NOSE: Normal external nose present EXTERNAL AUDITORY CANAL: EAC's normal Neck/C-Spine: COMMON NORMALS: no meningeal signs Chest: CHEST: Yes Symmetrical chest wall rise Resp: COMMON NORMALS: clear to auscultation bilaterally AUSCULTATION: clear to auscultation bilaterally Cardio: COMMON NORMALS: regular rate, regular rhythm and No murmurs present (Cardio) RATE: regular rate RHYTHM: regular rhythm GI: COMMON NORMALS: Normal to inspection, nondistended, normoactive bowel sounds present and Soft to palpation PALPATION: Yes Soft to palpation and Yes Tenderness to palpation present (GI) (L of umbilicus) Extremity: COMMON NORMALS: no pedal edema NARRATIVE EXTREMITY EXAM: R BKA Neuro: COMMON NORMALS: moves all extremities SENSORIUM/ORIENTATION: Yes alert MENINGEAL SIGNS: Yes no meningeal signs Psych: COMMON NORMALS: mental status grossly normal Skin: COMMON NORMALS: no wounds RASHES: no rashes Data : 11/17/21 11:55 11/17/21 11:55 A&P Assessment and plan (1) Chest pressure: Chest pressure, central, nonradiating, atypical. Had a recent coronary angiogram with revealed Mild disease in LCx, RCA and px to mid LAD. Distal LAD with distal short OM with 80% stenosis. Too small to be intervened. RHC with elevated PCWP and PA pressure. Could be symptoms secondary to noninterpretable vessel, or additionally discussed with her possibility of microvascular disease. Increase Imdur to 60 mg. Continue to medication blood pressure control, although she wants to discontinue amlodipine. Increase hydralazine to 4 times daily dosing. Consider radiology. Please also reach out to her outpatient clinical informaticist tomorrow for additional suggestions. Status: Acute (2) CHF exacerbation: Acute diastolic CHF versus fluid overload. She makes some urine. Continue Lasi x. Nephrology consulting as well regarding hemodialysis. Fluid restriction 1000 mL. Monitor I&O, weights. Status: Acute (3) End-stage renal disease (ESRD): HD [facility] Nephrology consultation appreciated. Status: Acute (4) HTN (hypertension): She would like to stop amlodipine for concerns with may be contributing to fluid overload. We will stop it. Increase hydralazine to 4 times daily. Increase Imdur to 60 mg. Status: Acute (5) Abdominal pain: She reports mild nausea. She did not have abdominal pain until some tenderness elicited on palpation to the left of the umbilicus. She denies vomiting. Denies any diarrhea, constipation, hematochezia or melena. Had a normal bowel movement today. Will check lipase. Discussed with her consideration of additional exam by CT scan currently versus additional reassessment, she would like to choose the latter at this time, please reassess tomorrow for changes. She knows to let us know in case he develops pain or there is any worsening. Status: Acute Plan DM2 Anemia Thrombocytopenia GERD: Continue pantoprazole Hypothyroidism DOROTEO on CPAP PVD Phantom pain Number of other chronic conditions noted. Attestations Medical Necessity Statement*: Place in observation for additional source and management of chest pressure and lady with non-intervenable CAD, additional dialysis for CHF exacerbation, adjustment of blood pressure medications. Reassessment abdominal tenderness. Coding Level of Care Code Acute Powder Core Tester for Chg Fwd Diagnoses Chest pressure R07.89 CHF exacerbation I50.9 End-stage renal disease (ESRD) N18.6 HTN (hypertension) I10 Abdominal pain R10.9
[2021-11-17 19:04] LABS: Troponin 5 6HR 128.8 ng/L (0-10); Troponin 5 6HR Delta -2.2 ng/L (0-12)
[2021-11-17 20:00] VITALS: BP 155/75; PULSE 76; RESP 18; TEMP 37; O2SAT 92
--- NOTE | 2021-11-17 20:11 | PM.CONSULT ---
Providers/Reason For Consult Consulting Physician/Specialty*: christelle bullard md / telenephrology Reason for Consult*: ESRD care Requesting Physician: DR Teresa Attending Physician: Calvin Zamorano Primary Care Provider: Jacob Sharp DO History of Present Illness History of Present Illness Rizwana Herzog is a 56 year old female ESRD pt, HD MWF. H/O CAD,, HTN, obesity, and hypothyroidism. Pt is here w/ sOB, IZAGUIRRE, CP, and HTN. rEnal called for ESRD care. Review of Systems Narrative: SOB< swollen, cp, weak, nausea, IZAGUIRRE, anxious. Medications/Allergies Home Medications Medication Instructions Recorded Confirmed Last Taken Type aspirin 81 mg chewable tablet 81 mg PO DAILY@06/25/19 11/17/21 11/17/21 History omega 9-boz-iam-fish oil 300 1 cap PO BID@01/17/20 11/17/21 11/17/21 History mg-1,000 mg capsule,delayed release (Fish Oil) nitroglycerin 0.4 mg sublingual 0.4 mg SUBLINGUAL Q5M PRN #25 tab 03/26/20 11/17/21 04/18/20 Rx tablet cholecalciferol (vitamin D3) 25 25 mcg PO DAILY@05/14/20 11/17/21 11/17/21 History mcg (1,000 unit) tablet (Vitamin D3) pantoprazole 40 mg tablet,delayed 40 mg PO DAILY@08 #90 tab 04/02/21 11/17/21 11/17/21 Rx release pen needle, diabetic 32 gauge x #100 ea 06/17/21 11/17/21 Unknown Rx /32 (ReliOn Pen Artemus) amlodipine 10 mg tablet 10 mg PO DAILY 30 Days #30 tab 07/22/21 11/17/21 11/17/21 Rx escitalopram oxalate 20 mg tablet 20 mg PO DAILY 07/22/21 11/17/21 11/17/21 History furosemide 40 mg tablet 40 mg PO QAM #30 tab 08/12/21 11/17/21 11/17/21 Rx PROSTHETIC SUPPLIES #1 ea 08/21/21 11/17/21 Unknown Rx ondansetron HCl 8 mg tablet 8 mg PO Q8H PRN 09/02/21 11/17/21 10/13/21 History vitamin B complex-vitamin C 100 1 tab PO DAILY 09/02/21 11/17/21 11/17/21 History mg-folic acid 1 mg tablet (Dialyvite) insulin glargine 100 unit/mL (3 5 unit (0.05 mL) SUBCUT BID@08,20 09/05/21 11/17/21 11/17/21 Rx mL) subcutaneous pen (Lantus #15 ml Solostar U-100 Insulin) glucosamine sulf dipot 1 cap PO DAILY 09/22/21 11/17/21 11/17/21 History chlr,msm,chond 550 mg-C 30 mg-janet 1 mg capsule (Glucosamine Chondroitin) carvedilol 3.125 mg tablet 3.125 mg PO BID #60 tab 09/26/21 11/17/21 10/20/21 Rx hydralazine 25 mg tablet 25 mg PO TID #90 tab 09/26/21 11/17/21 10/19/21 Rx clonazepam 0.25 mg disintegrating 0.25 mg PO BID PRN #30 tab 10/14/21 11/17/21 10/19/21 Rx tablet oxycodone 5 mg tablet 5 mg PO Q12H 30 Days #60 tab 10/14/21 11/17/21 11/17/21 Rx isosorbide mononitrate 30 mg 30 mg PO 1800 #30 tab 10/24/21 11/17/21 11/17/21 Rx tablet,extended release 24 hr levothyroxine 150 mcg tablet 150 mcg PO QAM #90 tab 11/04/21 11/17/21 11/17/21 Rx (Euthyrox) cyclobenzaprine 10 mg tablet 10 mg PO TID PRN #30 tab 11/13/21 11/17/21 Unknown Rx Allergies Allergy/AdvReac Type Severity Reaction Status Date / Time metformin [From Glucophage] Allergy Severe Unknown Verified 11/17/21 11:04 venlafaxine [From Effexor] Allergy Severe ADR-Shakine Verified 11/17/21 11:04 PFSH Acute PFSH: Medical History (Updated 11/17/21 @ 19:07 by Calvin Zamorano MD) Adjustment disorder with mixed disturbance of emotions and conduct Anemia in chronic kidney disease Anxiety BPPV (benign paroxysmal positional vertigo) CAD (coronary artery disease) Carotid stenosis 04/2020: Right < 50%, Left near 70% Chronic diastolic CHF (congestive heart failure) 12/2020 EF 55%, grade II/IV diastolic dysfunction Chronic kidney disease Chronic left sacroiliac joint pain CKD (chronic kidney disease) stage 5, GFR less than 15 ml/min Claustrophobia Compressive atelectasis Congestive heart failure Diabetes mellitus Diabetes mellitus, with long-term current use of insulin Diverticulitis Elevated troponin End stage renal disease ESBL (extended spectrum beta-lactamase) producing bacteria infection ESRD (end stage renal disease) on dialysis DAILY (generalized anxiety disorder) Gastroparesis GERD (gastroesophageal reflux disease) Gram-negative bacteremia Hemodialysis catheter dysfunction HTN (hypertension) Hyperlipidemia Hypocalcemia due to chronic kidney disease Hypothyroidism Hypoxemia Lumbar back pain Major depression, recurrent Mixed dyslipidemia DOROTEO on CPAP PAD (peripheral artery disease) Partial nontraumatic amputation of left foot (~06/2019) Peripheral vascular disease Peritonitis associated with peritoneal dialysis Phantom pain Pneumonia due to COVID-19 virus (~12/2020) Positive cardiac stress test Sleep apnea Suicidal ideation TIA (transient ischemic attack) Vitamin D deficiency Surgical History AV (arteriovenous fistula) (~10/2020) H/O hysterectomy with oophorectomy History of appendectomy History of cataract surgery History of heart artery stent PCI to LAD, done in [place], [place] 10/2018 ENRIQUE to mid LAD at [facility] 04/2020 History of hysterectomy History of left heart catheterization 04/2020 Findings: 1. There is severe coronary artery disease. 2. FFR of mid LAD was 0.76. 3. Severe OM 2 stenosis. However this is a small sized distal vessel. 4. Mid Left Anterior Descending Coronary Artery was treated with Balloon and Drug Eluting Stent History of right below knee amputation Peritoneal dialysis catheter in place Removed due to recurrent peritonitis S/P cholecystectomy S/P PICC central line placement (~2019) Status post amputation of toe Family History Denies family history of CAD (coronary artery disease) Clotting disorder Dementia Bleeding disorder Social History Smoking and tobacco status: never smoked Alcohol intake: never Household members: spouse and family History of recent travel: No Vitals/I&O/Wt Last Vital Signs Temp 97.7 F 11/17/21 11:04 Pulse 78 11/17/21 18:30 Resp 24 H 11/17/21 18:30 BP 166/78 11/17/21 18:30 Pulse Ox 92 11/17/21 18:30 Weight last 48 hrs Weight 85.729 kg Physical Exam Narrative: obese, uncomfortable in bed vs noted heent- nc/at, eomi, anicteric neck supple lungs b/l basal crackles heart reg, +ROBINA abd soft, nt, nd, + bs ext LUE AVF w/ thrill and bruit neuro- a,a, o x 3 pulse s+ b/l Data : 11/17/21 11:55 11/17/21 11:55 A&P Assessment and plan (1) End-stage renal disease (ESRD): 56 yr old female 1. ESRD on HD MWF - HD bow- 3.25 hrs, remove 3 l, 2k bath 2. CAD- med management as per recent cath.. 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 SOB- monitor w/ HD 4. HTN- monitor w/ dialysis 5. DM control 6. hgb excellent- no TRISH 7. monitor phos and zemplar on hd seen and examined w/ rN -telehealth visit informed consent for telehealth obtained time spent approx 50 minutes Status: Acute Plan see above Consult Attestations Medical Necessity Statement: SOB, HTN< CP, ESRD, hyperkalemia Time Spent in Patient Care: Greater than 35 minutes (>than 50% of time spent in counselling and/or direct pt care on unit). Coding Level of Care Code Acute Chair And Couch Maker for Maris Braden Diagnoses End-stage renal disease (ESRD) N18.6
[2021-11-17 20:19] LABS: Lipase 14 U/L (13-60)
[2021-11-17 21:18] LABS: Glucose Point of Care 159 mg/dL (70-110)
[2021-11-17] MEDS: oxyCODONE 5 mg IR Tab/Cap PO (21:19)
[2021-11-17] MEDS: isosorbide mononitrate ER 30 mg Tablet 60 MG PO (21:20)
[2021-11-17] MEDS: heparin 5,000 unit/mL INJ 1 mL 5000 UNIT SUBCUT (21:20)
[2021-11-17] MEDS: hyDRALAzine 25 mg Tablet PO (21:20)
[2021-11-17] MEDS: ondansetron 4 MG Tablet 8 MG PO (21:20)
[2021-11-17] MEDS: insulin glargine 100 units/1 mL 5 UNIT SUBCUT (21:20)
[2021-11-17 21:46] LABS: Hepatitis B Surface AB 37.1 (11.5-1000); Hepatitis B Surface Antigen Non-Reactive (Nonreactive); Hepatitis C Virus Antibody Non-Reactive (Nonreactive)
[2021-11-18] VITALS (9 sets, daily range): BP systolic 120–167; BP diastolic 62–78; PULSE 69–85; RESP 16–18; TEMP 36.8–37.1; O2SAT 92–95
[2021-11-18] MEDS: levothyroxine 150 mcg Tablet PO (05:06)
[2021-11-18] MEDS: FUROsemide 40 mg Tablet PO (05:06)
[2021-11-18 05:41] LABS: Basophils # 0.1 10^3/uL (0.0-0.1); Eosinophils # 0.2 10^3/uL (0.0-0.8); Eosinophils % 3.4 %; Hematocrit 35.6 % (37.0-47.0); Hemoglobin 11.8 g/dL (11.5-15.3); Lymphocytes # 0.6 10^3/uL (0.8-4.8); Lymphocytes % 12.5 %; Mean Corpuscular HGB Conc 33.1 g/dL (30.0-36.0); Mean Corpuscular Hemoglobin 31.1 pg (28.0-34.0); Mean Corpuscular Volume 93.7 fl (81-99); Mean Platelet Volume 10.8 fL (7.4-10.4); Monocytes # 0.4 10^3/uL (0.2-0.9); Monocytes % 8.7 %; Neutrophils # 3.66 10^3/uL (1.8-7.7); Neutrophils % 73.8 %; Nucleated Red Blood Cells % 0 %; Platelet Count 180 10^3/cmm (130-400)
[2021-11-18 06:07] LABS: Anion Gap 17.4 (5-19); Blood Urea Nitrogen 21 mg/dL (6-20); Carbon Dioxide 26 mmol/L (22-29); Chloride 103 mmol/L (98-107); Glomerular Filtration Rate 9.1 mL/min (90-130); Glucose 86 mg/dL (65-115); Magnesium 1.8 mg/dL (1.7-2.3); Osmolality Calculated 296 mOsm/kg (285-295); Phosphorus 4.9 mg/dL (2.5-4.5); Potassium 4.4 mmol/L (3.5-5.1); Sodium 142 mmol/L (136-145)
--- NOTE | 2021-11-18 06:40 | PM.PN ---
Subjective Subjective: still swollen and sob, weak, nausea. poor appettie. no cp Medications: Reviewed: Yes Medication Review Details: Current Medications Acetaminophen (Acetaminophen 325 Mg Tablet) 650 mg PO Q6H PRN PRN Reason: Mild/Mod Pain Or Temp >/= 101 Albuterol/Ipratropium (Ipratropium-Albuterol 3 Ml Neb) 3 ml INHALATION Q6H PRN PRN Reason: SHORTNESS OF BREATH Aspirin (Aspirin 81 Mg Chew Tablet) 81 mg PO DAILY@08 [facility] Carvedilol (Carvedilol 3.125 Mg Tablet) 3.125 mg PO BID [facility] Clonazepam (Clonazepam 0.5 Mg Tablet) 0.25 mg PO BID PRN PRN Reason: Anxiety Cyclobenzaprine HCl (Cyclobenzaprine 10 Mg Tablet) 10 mg PO TID PRN PRN Reason: muscle spasm Dextrose (Dextrose 50% Syringe 50 Ml) 25 ml IVP ONCE PRN; Protocol PRN Reason: hypoglycemia protocol Dextrose (Dextrose 50% Syringe 50 Ml) 50 ml IVP PRN PRN; Protocol PRN Reason: hypoglycemia protocol Escitalopram Oxalate (Escitalopram 10 Mg Tablet) 20 mg PO DAILY [facility] Furosemide (Furosemide 40 Mg Tablet) 40 mg PO QAM [facility] Last Admin: 11/18/21 05:06 Dose: 40 mg Documented by: Glucagon (Glucagon 1 Mg/Ml Inj 1 Ml) 1 mg IM ONCE PRN; Protocol PRN Reason: Adult Acute Hypoglycemia Prot. Heparin Sodium (Porcine) (Heparin 5,000 Unit/Ml Inj 1 Ml) 5,000 unit SUBCUT Q12H [facility] Last Admin: 11/17/21 21:20 Dose: 5,000 unit Documented by: Hydralazine HCl (Hydralazine 25 Mg Tablet) 25 mg PO QID [facility] Last Admin: 11/17/21 21:20 Dose: 25 mg Documented by: Dextrose (D5w) 500 mls @ 100 mls/hr IV ONCE PRN; Protocol PRN Reason: Adult Acute Hypoglycemia Prot Insulin Glargine (Insulin Glargine 100 Units/1 Ml) 5 unit SUBCUT BID@08,20 [facility] Last Admin: 11/17/21 21:20 Dose: 5 unit Documented by: Insulin Human Lispro (Insulin Lispro 100 Unit/1 Ml) 0 unit SUBCUT WM&BEDTIME [facility]; Protocol Last Admin: 11/17/21 21:38 Dose: Not Given Documented by: Isosorbide Mononitrate (Isosorbide Mononitrate Er 30 Mg Tablet) 60 mg PO BID [facility] Last Admin: 11/17/21 21:20 Dose: 60 mg Documented by: Levothyroxine Sodium (Levothyroxine 150 Mcg Tablet) 150 mcg PO QAM [facility] Last Admin: 11/18/21 05:06 Dose: 150 mcg Documented by: Lidocaine/Prilocaine (Lidocaine-Prilocaine Cream 5 Gm) 1 applic TOPICAL PRN PRN PRN Reason: pre-dialysis Multivitamins (C-Pxcxkxw-Fvczwww C Tablet) 1 each PO DAILY [facility] Nitroglycerin (Nitroglycerin 0.4 Mg Sublingual Tablet) 0.4 mg SUBLINGUAL Q5M PRN PRN Reason: Chest Pain Ondansetron HCl (Ondansetron 4 Mg Tablet) 8 mg PO Q8H PRN PRN Reason: Nausea And Vomiting Last Admin: 11/17/21 21:20 Dose: 8 mg Documented by: Ondansetron HCl (Ondansetron 2 Mg/Ml Sdv 2 Ml) 4 mg IVP Q8H PRN PRN Reason: vomiting, or N/V if npo Oxycodone HCl (Oxycodone 5 Mg Ir Tab/Cap) 5 mg PO Q12H [facility] Last Admin: 11/17/21 21:19 Dose: 5 mg Documented by: Pantoprazole Sodium (Pantoprazole Dr 40 Mg Tablet) 40 mg PO DAILY@08 [facility] Vitals/I&O/Wt Last Vital Signs Temp 98.2 F 11/18/21 04:00 Pulse 70 11/18/21 04:00 Resp 17 11/18/21 04:00 BP 120/62 11/18/21 04:00 Pulse Ox 93 11/18/21 04:00 11/17/21 11/17/21 11/18/21 14:59 22:59 06:59 Intake Total 60 / 60 Balance 60 / 60 Weight last 48 hrs Weight 86.137 kg Weight 85.729 kg Physical Exam Narrative: obese, uncomfortable in bed vs noted heent- nc/at, eomi, anicteric neck supple lungs b/l basal crackles heart reg, +ROBINA abd soft, nt, nd, + bs ext LUE AVF w/ thrill and bruit neuro- a,a, o x 3 pulses+ b/l Data : 11/18/21 05:32 11/18/21 05:32 A&P Assessment and plan (1) End-stage renal disease (ESRD): 56 yr old female 1. ESRD on HD MWF - s/p HD yesterday. will cont to challenge fluid removal on HD -extra SUF if possible today 2. CAD- med management as per recent cath.. 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 SOB- monitor w/ HD 4. HTN- monitor w/ dialysis- dec meds, for fluid removal 5. DM control 6. hgb okay- no TRISH 7. monitor phos and zemplar on hd seen and examined w/ rN -telehealth visit time spent approx 25+ minutes Status: Acute Plan see above Attestations Medical Necessity Statement*: sob, edema, esrd Coding Level of Care Code Acute Handkerchief Sample Clerk for Maris Braden Diagnoses End-stage renal disease (ESRD) N18.6
[2021-11-18 06:46] LABS: Glucose Point of Care 84 mg/dL (70-110)
[2021-11-18] MEDS: aspirin 81 mg Chew Tablet PO (08:29)
[2021-11-18] MEDS: insulin glargine 100 units/1 mL 5 UNIT SUBCUT ×2 (08:29→20:57)
[2021-11-18] MEDS: escitalopram 10 mg Tablet 20 MG PO (08:30)
[2021-11-18] MEDS: pantoprazole DR 40 mg Tablet PO (08:30)
[2021-11-18] MEDS: isosorbide mononitrate ER 30 mg Tablet 60 MG PO ×2 (08:31→18:09)
[2021-11-18] MEDS: oxyCODONE 5 mg IR Tab/Cap PO ×2 (08:32→20:57)
[2021-11-18] MEDS: carvedilol 3.125 mg Tablet PO ×2 (08:32→18:09)
[2021-11-18] MEDS: heparin 5,000 unit/mL INJ 1 mL 5000 UNIT SUBCUT ×2 (08:34→20:56)
[2021-11-18] MEDS: b-complex-vitamin c Tablet 1 EACH PO (08:52)
--- NOTE | 2021-11-18 10:29 | PC.CHAP ---
Pastoral Care Encounter/Spiritual Assessment Type of Contact [] Declined copy center associate visit [] Patient/Family/Request visit [] Outpatient visit [] Follow-up visit [] Physician referral [] Code/Alert [x] Routine visit [] Staff referral [] Actively dying [] Patient sleeping [] Family support [] [] Out of room [] Palliative care [] [] Receiving care in room [] Pre-surgical visit [] Trauma [] Long length of stay [] ICU visit [] Other: Relational/Emotional Strength [x] Patient feels connected with others/family/visitors/staff [] Distress [] Loneliness/isolation [] Abandonment Spirituality of Patient [x] Person of [place] [] Attends Jehovah'S Witness of their [place] [x] Believes in Prayer [] Reads Bible or Taoist materials [] There are Spiritual issues to be addressed Change Management Director Interventions x[] Prayer [x] Active listening [] Non-anxious presence [] Spiritual/emotional support [] Crisis/trauma care [] Spiritual counseling [] Bereavement support [] Provided bereavement packet [] Provided Bible/devotional materials [] Provided toy/stuffed animal, coloring book to patient or family member [] Provided Communion [] Anointing/[place] [] Salvation [x] Completed spiritual assessment [] Other: Impact on Illness or Injury [] Angry [] Fearful [] Anxious [] Often cries [] Exhaustion [] Unable to work [] Unable to attend adventist [] Unable to walk/stand [] Unable to read [] Unable to drive [] Unable to eat/drink [] Unable to sleep [] Unable to be with family [] Patient intubated [] Other: Summary Time spent with patient 10 min
[2021-11-18 11:16] LABS: Glucose Point of Care 118 mg/dL (70-110)
[2021-11-18] MEDS: ranolazine (12HR) 500 mg Tablet PO (12:29)
--- NOTE | 2021-11-18 14:30 | P.PN_ITS ---
Subjective Subjective: Patient was seen this morning she continues to complain of anterior chest discomfort, she tells me that is mild, but continues to have a pressure-like pain she tells me that her shortness of breath has improved with dialysis last night Vitals/I&O/Wt Last Vital Signs Temp 98.8 F 11/18/21 11:01 Pulse 69 11/18/21 11:01 Resp 16 11/18/21 11:01 BP 145/71 11/18/21 11:01 Pulse Ox 93 11/18/21 11:01 11/17/21 11/18/21 11/18/21 22:59 06:59 14:59 Intake Total 60 / 60 600 / 600 Balance 60 / 60 600 / 600 Weight last 48 hrs Weight 86.137 kg Weight 85.729 kg Physical Exam Const: COMMON NORMALS: no acute distress and patient oriented x3 Resp: COMMON NORMALS: normal respiratory effort, No retractions, No use of accessory muscles and clear to auscultation bilaterally AUSCULTATION: clear to auscultation bilaterally Cardio: COMMON NORMALS: regular rate, regular rhythm, S1 normal heart sound present and S2 normal heart sound present RATE: regular rate RHYTHM: regular rhythm HEART SOUNDS: S1 normal heart sound present and S2 normal heart sound present GI: COMMON NORMALS: Normal to inspection, nondistended, normoactive bowel sounds present, Soft to palpation and non-tender PALPATION: Yes Soft to palpation Extremity: COMMON NORMALS: no pedal edema Neuro: COMMON NORMALS: patient oriented x3 Psych: COMMON NORMALS: mental status grossly normal Data : 11/18/21 05:32 11/18/21 05:32 A&P Assessment and plan (1) Chest pressure: -Patient continues to have chest pain -She does have known 80% disease in the OM, likely culprit of persistent chest pain not amenable to intervention -Her Imdur has been increased to 60 twice daily -She is on Coreg, 3.25 twice daily, has been has been bradycardic in the past, concerned about further bradycardia -Ranexa is relatively contraindicated given her dialysis however she continues to have chest discomfort -Discussed with cardiology we will try low-dose Ranexa 500 mg once daily, monitor for adverse side effects including neurotoxicity, neurochecks, Chest pressure, central, nonradiating, atypical. Had a recent coronary angiogram with revealed Mild disease in LCx, RCA and px to mid LAD. Distal LAD with distal short OM with 80% stenosis. Too small to be intervened. RHC with elevated PCWP and PA pressure. Could be symptoms secondary to noninterpretable vessel, or additionally discussed with her possibility of microvascular disease. Increase Imdur to 60 mg. Continue to medication blood pressure control, al though she wants to discontinue amlodipine. Increase hydralazine to 4 times daily dosing. Consider radiology. Please also reach out to her outpatient recyclable materials collector tomorrow for additional suggestions. Status: Acute (2) CHF exacerbation: Acute diastolic CHF versus fluid overload. She makes some urine. Continue Lasix. Nephrology consulting as well regarding hemodialysis. Fluid restriction 1000 mL. Will receive dialysis today Monitor I&O, weights. Status: Acute (3) End-stage renal disease (ESRD): HD MWF Nephrology consultation appreciated. Status: Acute (4) HTN (hypertension): Norvasc held Status: Acute (5) Abdominal pain: Nausea and abdominal pain has resolved Status: Acute Plan DM2 Anemia Thrombocytopenia GERD: Continue pantoprazole Hypothyroidism DOROTEO on CPAP PVD Phantom pain Number of other chronic conditions noted. Attestations Medical Necessity Statement*: Patient requires hospitalization for persistent chest pain, inpatient, greater than 2 midnights Coding Level of Care Code Acute Classroom Technology Technician for Chg Fwd Diagnoses Chest pressure R07.89 CHF exacerbation I50.9 End-stage renal disease (ESRD) N18.6 HTN (hypertension) I10 Abdominal pain R10.9
[2021-11-18 17:16] LABS: Glucose Point of Care 92 mg/dL (70-110)
[2021-11-18 21:14] LABS: Glucose Point of Care 105 mg/dL (70-110)
[2021-11-18 22:52] LABS: Glucose Point of Care 112 mg/dL (70-110)
[2021-11-19] VITALS (9 sets, daily range): BP systolic 146–180; BP diastolic 67–90; PULSE 64–82; RESP 16–20; TEMP 36.8–37.1; O2SAT 94–96
[2021-11-19 03:34] LABS: Basophils # 0.1 10^3/uL (0.0-0.1); Eosinophils # 0.3 10^3/uL (0.0-0.8); Eosinophils % 5.3 %; Hematocrit 35.6 % (37.0-47.0); Hemoglobin 11.9 g/dL (11.5-15.3); Lymphocytes # 0.8 10^3/uL (0.8-4.8); Mean Corpuscular HGB Conc 33.4 g/dL (30.0-36.0); Mean Corpuscular Volume 92.7 fl (81-99); Mean Platelet Volume 10.8 fL (7.4-10.4); Monocytes # 0.5 10^3/uL (0.2-0.9); Monocytes % 10.1 %; Neutrophils % 67.2 %; Nucleated Red Blood Cells % 0 %; Platelet Count 174 10^3/cmm (130-400); Red Blood Count 3.84 10^6/uL (4.1-5.3); Red Cell Distribution Width 14.9 % (12.1-15.1); White Blood Count 5.1 10^3/uL (4.0-10.0)
[2021-11-19 03:56] LABS: Alanine Aminotransferase 9 U/L (0-33); Aspartate Amino Transferase 15 U/L (0-32); Carbon Dioxide 25 mmol/L (22-29); Chloride 98 mmol/L (98-107); Globulin 2.7 g/dL (1.3-4.6); Magnesium 1.8 mg/dL (1.7-2.3); Osmolality Calculated 288 mOsm/kg (285-295); Total Bilirubin 0.5 mg/dL (0.15-1.2)
[2021-11-19 03:57] LABS: Albumin Level 3.3 g/dL (3.5-5.2); Alkaline Phosphatase 116 IU/L (35-105); Blood Urea Nitrogen 32 mg/dL (6-20); Calcium 7.5 mg/dL (8.5-10.5); Glomerular Filtration Rate 6.7 mL/min (90-130); Glucose 127 mg/dL (65-115); Phosphorus 5.8 mg/dL (2.5-4.5); Sodium 135 mmol/L (136-145)
[2021-11-19 03:58] LABS: Anion Gap 16.8 (5-19); Potassium 4.8 mmol/L (3.5-5.1)
[2021-11-19] MEDS: FUROsemide 40 mg Tablet PO (05:33)
[2021-11-19] MEDS: levothyroxine 150 mcg Tablet PO (05:33)
[2021-11-19 06:43] LABS: Glucose Point of Care 93 mg/dL (70-110)
--- NOTE | 2021-11-19 06:52 | PM.PN ---
Subjective Subjective: feels better. is weak. had SUF late last night. no n/v/f/c/willingham/d Medications: Reviewed: Yes Medication Review Details: Current Medications Acetaminophen (Acetaminophen 325 Mg Tablet) 650 mg PO Q6H PRN PRN Reason: Mild/Mod Pain Or Temp >/= 101 Albuterol/Ipratropium (Ipratropium-Albuterol 3 Ml Neb) 3 ml INHALATION Q6H PRN PRN Reason: SHORTNESS OF BREATH Aspirin (Aspirin 81 Mg Chew Tablet) 81 mg PO DAILY@08 [facility] Last Admin: 11/18/21 08:29 Dose: 81 mg Documented by: Carvedilol (Carvedilol 3.125 Mg Tablet) 3.125 mg PO BID [facility] Last Admin: 11/18/21 18:09 Dose: 3.125 mg Documented by: Clonazepam (Clonazepam 0.5 Mg Tablet) 0.25 mg PO BID PRN PRN Reason: Anxiety Cyclobenzaprine HCl (Cyclobenzaprine 10 Mg Tablet) 10 mg PO TID PRN PRN Reason: muscle spasm Dextrose (Dextrose 50% Syringe 50 Ml) 25 ml IVP ONCE PRN; Protocol PRN Reason: hypoglycemia protocol Dextrose (Dextrose 50% Syringe 50 Ml) 50 ml IVP PRN PRN; Protocol PRN Reason: hypoglycemia protocol Escitalopram Oxalate (Escitalopram 10 Mg Tablet) 20 mg PO DAILY [facility] Last Admin: 11/18/21 08:30 Dose: 20 mg Documented by: Furosemide (Furosemide 40 Mg Tablet) 40 mg PO QAM [facility] Last Admin: 11/19/21 05:33 Dose: 40 mg Documented by: Glucagon (Glucagon 1 Mg/Ml Inj 1 Ml) 1 mg IM ONCE PRN; Protocol PRN Reason: Adult Acute Hypoglycemia Prot. Heparin Sodium (Porcine) (Heparin 5,000 Unit/Ml Inj 1 Ml) 5,000 unit SUBCUT Q12H [facility] Last Admin: 11/18/21 20:56 Dose: 5,000 unit Documented by: Dextrose (D5w) 500 mls @ 100 mls/hr IV ONCE PRN; Protocol PRN Reason: Adult Acute Hypoglycemia Prot Insulin Glargine (Insulin Glargine 100 Units/1 Ml) 5 unit SUBCUT BID@08,20 [facility] Last Admin: 11/18/21 20:57 Dose: 5 unit Documented by: Insulin Human Lispro (Insulin Lispro 100 Unit/1 Ml) 0 unit SUBCUT WM&BEDTIME [facility]; Protocol Last Admin: 11/18/21 20:57 Dose: Not Given Documented by: Isosorbide Mononitrate (Isosorbide Mononitrate Er 30 Mg Tablet) 60 mg PO BID [facility] Last Admin: 11/18/21 18:09 Dose: 60 mg Documented by: Levothyroxine Sodium (Levothyroxine 150 Mcg Tablet) 150 mcg PO QAM [facility] Last Admin: 11/19/21 05:33 Dose: 150 mcg Documented by: Lidocaine/Prilocaine (Lidocaine-Prilocaine Cream 5 Gm) 1 applic TOPICAL PRN PRN PRN Reason: pre-dialysis Multivitamins (E-Dpcfbpd-Frevspa C Tablet) 1 each PO DAILY [facility] Last Admin: 11/18/21 08:52 Dose: 1 each Documented by: Nitroglycerin (Nitroglycerin 0.4 Mg Sublingual Tablet) 0.4 mg SUBLINGUAL Q5M PRN PRN Reason: Chest Pain Ondansetron HCl (Ondansetron 4 Mg Tablet) 8 mg PO Q8H PRN PRN Reason: Nausea And Vomiting Last Admin: 11/17/21 21:20 Dose: 8 mg Documented by: Ondansetron HCl (Ondansetron 2 Mg/Ml Sdv 2 Ml) 4 mg IVP Q8H PRN PRN Reason: vomiting, or N/V if npo Oxycodone HCl (Oxycodone 5 Mg Ir Tab/Cap) 5 mg PO Q12H [facility] Last Admin: 11/18/21 20:57 Dose: 5 mg Documented by: Pantoprazole Sodium (Pantoprazole Dr 40 Mg Tablet) 40 mg PO DAILY@08 [facility] Last Admin: 11/18/21 08:30 Dose: 40 mg Documented by: Vitals/I&O/Wt Last Vital Signs Temp 98.4 F 11/19/21 03:23 Pulse 69 11/19/21 03:23 Resp 17 11/19/21 03:23 BP 156/76 11/19/21 03:23 Pulse Ox 96 11/19/21 03:23 11/18/21 11/18/21 11/19/21 14:59 22:59 06:59 Intake Total 600 / 600 480 / 1080 0 / 1080 Output Total 2528 / 2528 Balance 600 / 600 480 / 1080 -2528 / -1448 Weight last 48 hrs Weight 84.453 kg Weight 86.6 kg Weight 86.137 kg Weight 87.8 kg Weight 85.729 kg Physical Exam Narrative: obese, comfortable in bed vs noted heent- nc/at, eomi, anicteric neck supple lungs b/l improved air movement heart reg, +ROBINA abd soft, nt, nd, + bs ext LUE AVF w/ thrill and bruit neuro- a,a, o x 3 pulses+ b/l Data : 11/19/21 03:20 11/19/21 03:20 A&P Assessment and plan (1) End-stage renal disease (ESRD): 56 yr old female 1. ESRD on HD MWF - s/p HD on 11-17, SUF last night -we will cont to challenge fluid removal on HD -repeat HD today or tomorrow 2. CAD- med management as per recent cath.. Defer further management to medicine and her milling supervisor 3. HTN- monitor w/ dialysis and current meds 4. DM control 5. hgb okay- no TRISH 6. monitor phos -binder -cont zemplar on hd seen and examined w/ rN -telehealth visit time spent approx 25+ minutes Status: Acute Plan see above Attestations Medical Necessity Statement*: per medicine Time Spent in Patient Care: 16 - 35 minutes (>than 50% of time spent in counselling and/or direct pt care on unit). Coding Level of Care Code Acute Orthotic Practitioner for Maris Braden Diagnoses End-stage renal disease (ESRD) N18.6
[2021-11-19] MEDS: carvedilol 3.125 mg Tablet PO (10:07)
[2021-11-19] MEDS: aspirin 81 mg Chew Tablet PO (10:08)
[2021-11-19] MEDS: b-complex-vitamin c Tablet 1 EACH PO (10:08)
[2021-11-19] MEDS: escitalopram 10 mg Tablet 20 MG PO (10:08)
[2021-11-19] MEDS: isosorbide mononitrate ER 30 mg Tablet 60 MG PO (10:08)
[2021-11-19] MEDS: ranolazine (12HR) 500 mg Tablet PO (10:09)
[2021-11-19] MEDS: pantoprazole DR 40 mg Tablet PO (10:09)
[2021-11-19] MEDS: sevelamer 800 mg Tablet 1600 MG PO (10:10)
[2021-11-19] MEDS: insulin glargine 100 units/1 mL 5 UNIT SUBCUT (10:16)
[2021-11-19] MEDS: oxyCODONE 5 mg IR Tab/Cap PO (10:16)
[2021-11-19] MEDS: heparin 5,000 unit/mL INJ 1 mL 5000 UNIT SUBCUT (10:16)
[2021-11-19 11:25] LABS: Glucose Point of Care 131 mg/dL (70-110)
--- NOTE | 2021-11-19 11:45 | P.DS_ITS ---
Discharge Providers Date of Admission: 11/17/21 17:54 Date of Discharge: November 19, 2021 Attending Provider at Admission: Calvin Zamorano Attending Provider at Discharge: Maikol Lemos MD Primary Care Provider: Jacob Sharp DO Diagnoses at Discharge Discharge Diagnosis (1) End-stage renal disease (ESRD): Status: Acute Reason for Visit Reason for Visit: weakness sob Hospital Course Hospital Course This is a 56-year-old female with a past medical history of end-stage renal disease on dialysis, type 2 diabetes mellitus, who presents to [facility] due to chest pain For her chest pain, patient had a abnormal stress test in September, underwent coronary angiography which showed distal short OM with 80% stenosis, too small to be intervened on, managed with Imdur. Her baseline troponin was 131, EKG no acute changes she was monitored as inpatient, no significant delta troponin, she continued to have chest pain, her Imdur was increased to 60 twice a day however she continued to have chest pain. I discussed her case with cardiology, I was concerned that her distal OM was likely the culprit for her continued chest pain, we decided to proceed with Ranexa however there was concerns for toxicity given her end-stage renal disease, after discussing the risks and benefits of Ranexa patient voiced understanding all questions answered agreed to proceed, she was started on low-dose Ranexa 500 mg once a day, her chest pain resolved with Ranexa, clinically improved. I discussed with her the risks and benefits of Ranexa, patient agreed to proceed on discharge, to monitor for side effects, including lightheadedness, dizziness, changes in her mentation, low blood pressure if so stop taking medication and go to the emergency room. I will have her follow-up with cardiology as outpatient. Will discharge on Ranexa 500 mg once a day. Discharged with Imdur 60 mg once daily. Patient was also found to have a diastolic CHF exacerbation, requiring inpatient dialysis, she also clinically improved with dialysis, discharged on her home dialysis Wednesday. Physical Exam Const: COMMON NORMALS: no acute distress and patient oriented x3 Resp: COMMON NORMALS: normal respiratory effort, No retractions, No use of accessory muscles and clear to auscultation bilaterally AUSCULTATION: clear to auscultation bilaterally Cardio: COMMON NORMALS: regular rate, regular rhythm, S1 normal heart sound present and S2 normal heart sound present RATE: regular rate RHYTHM: regular rhythm HEART SOUNDS: S1 normal heart sound present and S2 normal heart sound present GI: COMMON NORMALS: Normal to inspection, nondistended, normoactive bowel sounds present, Soft to palpation and non-tender PALPATION: Yes Soft to palpation Extremity: COMMON NORMALS: no pedal edema Neuro: COMMON NORMALS: patient oriented x3 Psych: COMMON NORMALS: mental status grossly normal Discharge Data Studies Completed and Pending Completed Studies During Hospitalization Category Date Time Status XR chest 1V portable [id number] Stat Exams 11/17/21 11:26 Completed Pending at discharge Category Date Time Status Complete Blood Count w/Auto AM LABS Lab 11/20/21 04:00 Ordered Complete Blood Count w/Auto AM LABS Lab 11/21/21 04:00 Ordered Comprehensive Metabolic Panel AM LABS Lab 11/20/21 04:00 Ordered Comprehensive Metabolic Panel AM LABS Lab 11/21/21 04:00 Ordered Magnesium AM LABS Lab 11/20/21 04:00 Ordered Phosphorus AM LABS Lab 11/20/21 04:00 Ordered Radiology Impressions Chest X-Ray 11/17/21 11:26 IMPRESSION: 1. Nonspecific bibasilar opacities, favoring atelectasis or pneumonia. 2. There is blunting of both costophrenic angles, suggestive of small pleural effusions. 3. Heart is enlarged but stable when compared to the prior exam. Laboratory Results WBC 5.1 10^3/uL (4.0-10.0) 11/19/21 03:20 RBC 3.84 10^6/uL (4.1-5.3) L 11/19/21 03:20 Hgb 11.9 g/dL (11.5-15.3) 11/19/21 03:20 Hct 35.6 % (37.0-47.0) L 11/19/21 03:20 MCV 92.7 fl (81-99) 11/19/21 03:20 MCH 31.0 pg (28.0-34.0) 11/19/21 03:20 MCHC 33.4 g/dL (30.0-36.0) 11/19/21 03:20 RDW 14.9 % (12.1-15.1) 11/19/21 03:20 Plt Count 174 10^3/cmm (130-400) 11/19/21 03:20 MPV 10.8 fL (7.4-10.4) H 11/19/21 03:20 Neut % (Auto) 67.2 % 11/19/21 03:20 Lymph % (Auto) 16.0 % 11/19/21 03:20 [place] % (Auto) 10.1 % 11/19/21 03:20 Eos % (Auto) 5.3 % 11/19/21 03:20 Baso % (Auto) 1.0 % 11/19/21 03:20 Neut # (Auto) 3.40 10^3/uL (1.8-7.7) 11/19/21 03:20 Lymph # (Auto) 0.8 10^3/uL (0.8-4.8) 11/19/21 03:20 [place] # (Auto) 0.5 10^3/uL (0.2-0.9) 11/19/21 03:20 Eos # (Auto) 0.3 10^3/uL (0.0-0.8) 11/19/21 03:20 Baso # (Auto) 0.1 10^3/uL (0.0-0.1) 11/19/21 03:20 Nucleated RBC % (auto) 0 % 11/19/21 03:20 Nucleated RBCs # 0.0 /100WBC 11/19/21 03:20 Sodium 135 mmol/L (136-145) L 11/19/21 03:20 Potassium 4.8 mmol/L (3.5-5.1) 11/19/21 03:20 Chloride 98 mmol/L (98-107) 11/19/21 03:20 Carbon Dioxide 25 mmol/L (22-29) 11/19/21 03:20 Anion Gap 16.8 (5-19) 11/19/21 03:20 BUN 32 mg/dL (6-20) H 11/19/21 03:20 Creatinine 6.4 mg/dL (0.5-0.9) H* 11/19/21 03:20 GFR Calculation 6.7 mL/min (90-130) L 11/19/21 03:20 Glucose 127 mg/dL (65-115) H 11/19/21 03:20 POC Glucose 131 mg/dL (70-110) H 11/19/21 11:15 Calculated Osmolality 288 mOsm/kg (285-295) 11/19/21 03:20 Calcium 7.5 mg/dL (8.5-10.5) L 11/19/21 03:20 Phosphorus 5.8 mg/dL (2.5-4.5) H 11/19/21 03:20 Magnesium 1.8 mg/dL (1.7-2.3) 11/19/21 03:20 Total Bilirubin 0.5 mg/dL (0.15-1.2) 11/19/21 03:20 AST 15 U/L (0-32) 11/19/21 03:20 ALT 9 U/L (0-33) 11/19/21 03:20 Alkaline Phosphatase 116 IU/L (35-105) H 11/19/21 03:20 Troponin T Baseline 131 ng/L (0-10) H* 11/17/21 11:55 Troponin T 120 Minute 127.4 ng/L (0-10) H 11/17/21 13:58 Delta Troponin T -3.6 ABS# (0-10) L 11/17/21 13:58 Troponin T Hi Sens 6Hr 128.8 ng/L (0-10) H 11/17/21 18:10 Troponin T Hi Sens 6Hr Delta -2.2 ng/L (0-12) L 11/17/21 18:10 Total Protein 6.0 g/dL (6.6-8.7) L 11/19/21 03:20 Albumin 3.3 g/dL (3.5-5.2) L 11/19/21 03:20 Globulin 2.7 g/dL (1.3-4.6) 11/19/21 03:20 Lipase 14 U/L (13-60) 11/17/21 13:50 Hep Bs Antigen Non-reactive (Nonreactive) 11/17/21 11:55 Hep Bs Antibody 37.1 (11.5-1000) 11/17/21 11:55 Hepatitis C Antibody Non-reactive (Nonreactive) 11/17/21 11:55 Vitals Last Vital Signs Temp 98.4 F 11/19/21 03:23 Pulse 64 11/19/21 07:53 Resp 20 H 11/19/21 07:53 BP 152/79 11/19/21 07:53 Pulse Ox 95 11/19/21 07:53 Discharge Plan Discharge Patient Disposition: Home Condition: Stable Prescriptions: New ranolazine 500 mg Tablet Extended Release 12 Hr 500 mg PO DAILY 30 Days Qty: 30 0RF sevelamer carbonate 800 mg Tablet 1,600 mg PO TID 30 Days Qty: 180 0RF isosorbide mononitrate 60 mg tablet extended release 24 hr 60 mg PO DAILY 30 Days Qty: 60 0RF Continued nitroglycerin 0.4 mg tablet, sublingual 0.4 mg SUBLINGUAL Q5M PRN (Reason: Chest Pain) Qty: 25 6RF furosemide 40 mg tablet 40 mg PO QAM Qty: 30 2RF escitalopram oxalate 20 mg tablet 20 mg PO DAILY 0RF clonazepam 0.25 mg tablet,disintegrating 0.25 mg PO BID PRN (Reason: Anxiety) Qty: 30 0RF oxycodone 5 mg tablet 5 mg PO Q12H 30 Days Qty: 60 0RF cyclobenzaprine 10 mg tablet 10 mg PO TID PRN (Reason: muscle spasm) Qty: 30 2RF pantoprazole 40 mg tablet,delayed release (DR/EC) 40 mg PO DAILY@08 Qty: 90 3RF (DME) pen needle, diabetic [ReliOn Pen [place]] 32 gauge x 5/32 needle See Rx Instructions .ROUTE .MEDSUPPLY Qty: 100 6RF Rx Instructions: use for insulin injections (DME) PROSTHETIC SUPPLIES See Rx Instructions .Route .MEDSUPPLY Qty: 1 0RF Rx Instructions: As directed levothyroxine [Euthyrox] 150 mcg tablet 150 mcg PO QAM Qty: 90 3RF aspirin 81 mg Tablet,Chewable 81 mg PO DAILY@08 0RF Hold Instructions: Resume on 10/24/21. cholecalciferol (vitamin D3) [Vitamin D3] 25 mcg (1,000 unit) Tablet 25 mcg PO DAILY@08 0RF omega 0-xpn-afl-fish oil [Fish Oil] 300-1,000 mg Capsule,Delayed Release(Dr/Ec) 1 cap PO BID@08,20 0RF Glucosamine Chondroitin 550-30-1 mg Capsule 1 cap PO DAILY 0RF carvedilol 3.125 mg Tablet 3.125 mg PO BID Qty: 60 0RF ondansetron HCl 8 mg tablet 8 mg PO Q8H PRN (Reason: Nausea And Vomiting) 0RF Dialyvite 100-1 mg tablet 1 tab PO DAILY 0RF insulin glargine [Lantus Solostar U-100 Insulin] 100 unit/mL (3 mL) insulin pen 5 unit SUBCUT BID@08,20 Qty: 15 12RF Changed hydralazine 25 mg Tablet 12.5 mg PO TID Qty: 90 0RF Rx Instructions: Measure your blood pressure before taking this pill. Do not take the pill if your blood pressure is below 130 Discontinued amlodipine 10 mg tablet 10 mg PO DAILY 30 Days Qty: 30 2RF isosorbide mononitrate 30 mg Tablet Extended Release 24 Hr 30 mg PO 1800 Qty: 30 0RF Discharge Orders: Discharge Order (Routine); Ordered 11/19/21 Ordered By: Maikol Lemos Referrals: Jacob Sharp DO [Primary Care Provider] - 11/26/21 1:00 pm Soraya Ignacio MD [Physician] - 11/24/21 1:20 pm (APPOINTMENT WITH FLORENCIO [facility]HAN) Discharge Diet: Usual diet Discharge Activity: Resume usual activity Patient Instructions: Isosorbide Mononitrate (By mouth), Sevelamer (By mouth), Ranolazine (By mouth), Opioid Safety Activity Restrictions/Additional Instructions: - Please follow-up with cardiology in 1 week -If you have any changes in mentation, increased confusion, lightheadedness, low blood pressure, slow heart rate please stop Ranexa Discharge Attestations Time Spent in Discharge Care*: less than 30 min Status at Discharge: Cognitive status at discharge: cognitively intact , Behavioral status at discharge: cooperative , Quality Metrics Clinical Quality Measures [ No reported AMI, CVA or VTE this stay] Coding Level of Care Code Acute Chg FW DC note Diagnoses End-stage renal disease (ESRD) N18.6
--- NOTE | 2021-11-19 11:45 | ECG_ITS ---
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 Measurements Intervals [place] Rate: 70 P: -37 HI: 196 QRS: -57 QRSD: 89 T: 64 QT: 419 QTc: 455 Interpretive Statements SINUS RHYTHM POSSIBLE ANTERIOR MYOCARDIAL INFARCTION , PROBABLY OLD [30 ms Q WAVE IN V3/V4, OR R < 0.2 mV IN V4] INFERIOR MYOCARDIAL INFARCTION , PROBABLY OLD [40+ ms Q WAVE AND/OR ST/T ABNORMALITY IN II/aVF] Compared to ECG 11/17/2021 13:14:19 Left-axis deviation no longer present Myocardial infarct finding still present Electronically Signed On 11-19-2021 22:13:43 CDT by Soraya Ignacio M.D. [id number]
[2021-11-19 16:53] LABS: Glucose Point of Care 108 mg/dL (70-110)
== END 2021-11-19 20:54 | disposition home or self-care (01) ==
LOC: ER 15:21 → MEDSURG 11-18 00:41
PROVIDERS: Internal Medicine Nephrology; Admitting Provider Internal Medicine; Emergency Provider Family Medicine; PCP Family Medicine; Visit Provider Family Medicine
DX: E11.22 Type 2 diabetes mellitus with diabetic chronic kidney disease (principal); I13.0 Hypertensive heart and chronic kidney disease with heart failure and stage 1 through stage 4 chronic kidney disease, or unspecified chronic kidney disease; N18.9 Chronic kidney disease, unspecified; I50.9 Heart failure, unspecified; Z79.82 Long term (current) use of aspirin; Z79.4 Long term (current) use of insulin; I25.10 Atherosclerotic heart disease of native coronary artery without angina pectoris; Z99.2 Dependence on renal dialysis; D64.9 Anemia, unspecified; E03.9 Hypothyroidism, unspecified; G47.33 Obstructive sleep apnea (adult) (pediatric); F41.9 Anxiety disorder, unspecified; Z86.73 Personal history of transient ischemic attack (TIA), and cerebral infarction without residual deficits; E78.2 Mixed hyperlipidemia; D69.6 Thrombocytopenia, unspecified
CPT/HCPCS: 36415; 36416; 71045; 80048; 80053; 82962; 83690; 83735; 84100; 84484; 85025; 86706; 86803; 87340; 93005; 94664; 96372; 99285; G0378; J1644; J1815; Q0162; Q3014

== ENCOUNTER 2021-11-28 13:26 | Observation (INO) | payer MEDICARE, MEDICAID, SELFPAY ==
[2021-11-28] VITALS (7 sets, daily range): BP systolic 137–167; BP diastolic 64–79; PULSE 67–72; RESP 14–20; TEMP 36.3–36.8; O2SAT 92–95; BMI 33.3
--- NOTE | 2021-11-28 13:28 | ECG_ITS ---
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 Measurements Intervals [place] Rate: 72 P: -28 DE: 195 QRS: -60 QRSD: 92 T: 54 QT: 427 QTc: 469 Interpretive Statements SINUS RHYTHM LEFT AXIS DEVIATION [QRS AXIS < -30] POSSIBLE ANTERIOR MYOCARDIAL INFARCTION , OF INDETERMINATE AGE [30 ms Q WAVE IN V3/V4, OR R < 0.2 mV IN V4] Compared to ECG 11/19/2021 14:03:46 Left-axis deviation now present Myocardial infarct finding still present Electronically Signed On 11-28-2021 22:51:43 CDT by Soraya Ignacio M.D. [id number]
--- NOTE | 2021-11-28 13:28 | XR_ITS ---
WS: [id number] PORTABLE CHEST HISTORY: chest pain COMPARISON: 11/17/2021 Bibasilar opacifications with mild improvement on the LEFT and progression on the RIGHT since the freddy or study. Increasing consolidation at the RIGHT lung base. Mild blunting of the costophrenic angles. No pneumothorax. Cardiac size: Mildly enlarged cardiac silhouette. Mediastinum/Aorta: Normal mediastinum. No osseous abnormality seen. XR/XR chest 1V portable [id number] IMPRESSION: 1. Bibasilar opacifications and partial obscuration of the lung bases. Suspect developing pneumonia at the RIGHT lung base. Additional areas of subsegmental atelectasis with small effusions likely. 2. Mild cardiomegaly.
--- NOTE | 2021-11-28 13:54 | W.ED.GENADLT ---
HPI - General Adult General: Chief complaint: Chest Pain Stated complaint: cp Time Seen by Provider: 11/28/21 13:28 History of Present Illness: Patient is 56-year-old female with history of's ESRD on dialysis Wednesday/Wednesday/Wednesday (last dialysis was 2 days ago), CAD with stent x2, hypertension, diabetes, CHF on 3L of NC at baseline who presents emergency room for evaluation of cute onset of chest pain since 5 AM this morning. Patient says that she describes as a occasionally sharp pressure-like chest pain has been ongoing with associated nausea. Patient did not go get her dialysis today. Patient reports exertional dyspnea for the last 2 to 3 days. Patient denies any abdominal complaints, diarrhea melena/hematochezia. Patient denies any fever/chills, cough runny nose sore throat, productive phlegm. Patient denies any pleuritic chest pain, leg swelling, recent immobilization or surgery. Denies that the pain is stabbing or radiating towards back. Onset: 5am Duration:ongoing for the last 8 hrs Location:home Severity:moderate Associated symptoms: Reports chest pain; Deny dyspnea, nausea, rash, palpitations or vomiting Review of Systems Const: Denies: fever(s) or chills Eyes: Denies: change in vision ENMT: Denies: mouth pain Card: Reports: chest pain and dyspnea on exertion; Denies: palpitations Resp: Denies: dyspnea or non-productive cough GI: Denies: abdominal pain, nausea, vomiting or diarrhea : Denies: dysuria Musc: Denies: extremity pain Skin/Breast: Denies: rash or new lesions Neuro: Denies: weakness in extremities Psych: Reports: other (Normal mood) [place]/Lymph: Denies: easy bruising PFS ED PFSH: Medical History Adjustment disorder with mixed disturbance of emotions and conduct Anemia in chronic kidney disease Anxiety BPPV (benign paroxysmal positional vertigo) CAD (coronary artery disease) Carotid stenosis 04/2020: Right < 50%, Left near 70% Chronic diastolic CHF (congestive heart failure) 12/2020 EF 55%, grade II/IV diastolic dysfunction Chronic kidney disease Chronic left sacroiliac joint pain CKD (chronic kidney disease) stage 5, GFR less than 15 ml/min Claustrophobia Compressive atelectasis Congestive heart failure Diabetes mellitus Diabetes mellitus, with long-term current use of insulin Diverticulitis Elevated troponin End stage renal disease ESBL (extended spectrum beta-lactamase) producing bacteria infection ESRD (end stage renal disease) on dialysis DAILY (generalized anxiety disorder) Gastroparesis GERD (gastroesophageal reflux disease) Gram-negative bacteremia Hemodialysis catheter dysfunction HTN (hypertension) Hyperlipidemia Hypocalcemia due to chronic kidney disease Hypothyroidism Hypoxemia Lumbar back pain Major depression, recurrent Mixed dyslipidemia DOROTEO on CPAP PAD (peripheral artery disease) Partial nontraumatic amputation of left foot (~06/2019) Peripheral vascular disease Peritonitis associated with peritoneal dialysis Phantom pain Pneumonia due to COVID-19 virus (~12/2020) Positive cardiac stress test Sleep apnea Suicidal ideation TIA (transient ischemic attack) Vitamin D deficiency Surgical History AV (arteriovenous fistula) (~10/2020) H/O hysterectomy with oophorectomy History of appendectomy History of cataract surgery History of heart artery stent PCI to LAD, done in [place], [place] 10/2018 ENRIQUE to mid LAD at [facility] 04/2020 History of hysterectomy History of left heart catheterization 04/2020 Findings: 1. There is severe coronary artery disease. 2. FFR of mid LAD was 0.76. 3. Severe OM 2 stenosis. However this is a small sized distal vessel. 4. Mid Left Anterior Descending Coronary Artery was treated with Balloon and Drug Eluting Stent History of right below knee amputation Peritoneal dialysis catheter in place Removed due to recurrent peritonitis S/P cholecystectomy S/P PICC central line placement (~2019) Status post amputation of toe Family History Denies family history of CAD (coronary artery disease) Clotting disorder Dementia Bleeding disorder Social History Smoking and tobacco status: never smoked Alcohol intake: never Household members: spouse and family History of recent travel: No Physical Exam Const: COMMON NORMALS: alert HENMT: COMMON NORMALS: atraumatic HEAD & SCALP: atraumatic MOUTH: moist mucous membranes not abnormal Eye: COMMON NORMALS: EOMs intact bilaterally and conjunctivae normal CONJUNCTIVA: Yes conjunctivae normal Neck/C-Spine: COMMON NORMALS: full ROM and supple Resp: COMMON NORMALS: normal respiratory effort and clear to auscultation bilaterally AUSCULTATION: clear to auscultation bilaterally Cardio: COMMON NORMALS: regular rate RATE: regular rate GI: COMMON NORMALS: Soft to palpation and non-tender PALPATION: Yes Soft to palpation Extremity: COMMON NORMALS: full ROM OTHER: +R BKA Neuro: SENSORIUM/ORIENTATION: Yes alert MOTOR EXAM: No Abnormal motor strength present and Other motor observations present (no focal motor deficits) Psych: COMMON NORMALS: speech normal SPEECH: Yes normal speech MOOD & AFFECT: Yes euthymic mood Course Vital Signs: Vital signs: Vital Signs Temperature 98.4 F 11/30/21 16:29 Pulse Rate 66 11/30/21 16:29 Respiratory Rate 15 11/30/21 16:29 Blood Pressure 121/56 11/30/21 16:29 Pulse Oximetry 95 11/30/21 16:29 MDM - General Adult Medical Decision Making 56-year-old female history of CAD with stents x2, hypertension, CHF, ESRD dialysis Wednesday/Wednesday/Wednesday who presents emergency room with exertional dyspnea x3 days in setting of chest pressure at rest since 5 AM this morning. Currently, patient reports 6 out of 10 chest pain. Satting at 93-95% on 3L of oxygen. Lungs appear to be clear on auscultation. Rest of exam within normal limit. White count of 4.2. Patient is noted to have creatinine six-point similar to baseline. Potassium 5.5. EKG not showing signs of hyperkalemia. X-ray chest showed possible right-sided pneumonia. Patient has been recently admitted to the hospital will treat as HCAP. Patient received vancomycin and cefepime. Given potassium 5.5, missing dialysis today, patient will will need dialysis. Patient has increased oxygen requirement requiring 4 L of oxygen to achieve a sat of 93 to 94%. Patient admitted to hospital for pneumonia with increased oxygen requirement. This was discussed with Dr. Ambriz who will perform urgent dialysis. Disposition: admission Lab Data : 11/30/21 03:30 11/30/21 03:30 Radiology Impressions Chest X-Ray 11/28/21 13:28 IMPRESSION: 1. Bibasilar opacifications and partial obscuration of the lung bases. Suspect developing pneumonia at the RIGHT lung base. Additional areas of subsegmental atelectasis with small effusions likely. 2. Mild cardiomegaly. Laboratory Results WBC 4.2 10^3/uL (4.0-10.0) 11/28/21 15:00 RBC 4.36 10^6/uL (4.1-5.3) 11/28/21 15:00 Hgb 13.5 g/dL (11.5-15.3) 11/28/21 15:00 Hct 40.7 % (37.0-47.0) 11/28/21 15:00 MCV 93.3 fl (81-99) 11/28/21 15:00 MCH 31.0 pg (28.0-34.0) 11/28/21 15:00 MCHC 33.2 g/dL (30.0-36.0) 11/28/21 15:00 RDW 14.9 % (12.1-15.1) 11/28/21 15:00 Plt Count 149 10^3/cmm (130-400) 11/28/21 15:00 MPV 11.3 fL (7.4-10.4) H 11/28/21 15:00 Neut % (Auto) 71.8 % 11/28/21 15:00 Lymph % (Auto) 15.9 % 11/28/21 15:00 [place] % (Auto) 9.4 % 11/28/21 15:00 Eos % (Auto) 1.2 % 11/28/21 15:00 Baso % (Auto) 1.0 % 11/28/21 15:00 Neut # (Auto) 2.99 10^3/uL (1.8-7.7) 11/28/21 15:00 Lymph # (Auto) 0.7 10^3/uL (0.8-4.8) L 11/28/21 15:00 [place] # (Auto) 0.4 10^3/uL (0.2-0.9) 11/28/21 15:00 Eos # (Auto) 0.1 10^3/uL (0.0-0.8) 11/28/21 15:00 Baso # (Auto) 0.0 10^3/uL (0.0-0.1) 11/28/21 15:00 Nucleated RBC % (auto) 0 % 11/28/21 15:00 Nucleated RBCs # 0.0 /100WBC 11/28/21 15:00 Sodium 137 mmol/L (136-145) 11/28/21 15:00 Potassium 5.5 mmol/L (3.5-5.1) H 11/28/21 15:00 Chloride 97 mmol/L (98-107) L 11/28/21 15:00 Carbon Dioxide 24 mmol/L (22-29) 11/28/21 15:00 Anion Gap 21.5 (5-19) H 11/28/21 15:00 BUN 34 mg/dL (6-20) H 11/28/21 15:00 Creatinine 6.8 mg/dL (0.5-0.9) H* 11/28/21 15:00 GFR Calculation 6.3 mL/min (90-130) L 11/28/21 15:00 Glucose 99 mg/dL (65-115) 11/28/21 15:00 Calculated Osmolality 292 mOsm/kg (285-295) 11/28/21 15:00 Calcium 7.1 mg/dL (8.5-10.5) L 11/28/21 15:00 Troponin T Baseline 124 ng/L (0-10) H* 11/28/21 15:00 NT-Pro-B Natriuret Pep 6254 pg/mL (0-125) H 11/28/21 15:00 Imaging Data Other Imaging: Radiologist's impression: [address] [place] [address] XRay Report Signed Patient: Rizwana Herzog Unit #: [id number] : 1965 Age/Sex: 56 / F ADM Date: 11/28/21 Loc: ER Room/Bed: Attending Dr: Ordering Provider/Ordering MD: Abena Bender MD Date of Service: 11/28/21 Procedure(s): XR chest 1V portable [id number] Accession Number(s): [id number] Report Number: [id number] WS: [id number] PORTABLE CHEST HISTORY: chest pain COMPARISON: 11/17/2021 Bibasilar opacifications with mild improvement on the LEFT and progression on the RIGHT since the prior study. Increasing consolidation at the RIGHT lung base. Mild blunting of the costophrenic angles. No pneumothorax. Cardiac size: Mildly enlarged cardiac silhouette. Mediastinum/Aorta: Normal mediastinum. No osseous abnormality seen. XR/XR chest 1V portable [id number] IMPRESSION: ? 1.? Bibasilar opacifications and partial obscuration of the lung bases. Suspect developing pneumonia at the RIGHT lung base. Additional areas of subsegmental atelectasis with small effusions likely. 2.? Mild cardiomegaly. ? ? ? Dictated By: Shari Santiago DO Signed By: Shari Santiago DO Signed Date/Time: 11/28/21 1356 DD/ 1355 Discharge Plan Discharge Patient Disposition: Admitted As Inpatient Admit Provider: Ewa Mccarty Clinical Impression: Acute hyperkalemia, Acute dyspnea, CHF exacerbation Condition: Stable Discharge Activity: Resume usual activity and Oxygen as instructed Coding Level of Care Code ED Hvac Sales Engineer for Chg Fwd Exam Comprehensive
[2021-11-28 15:25] LABS: Eosinophils # 0.1 10^3/uL (0.0-0.8); Eosinophils % 1.2 %; Hematocrit 40.7 % (37.0-47.0); Hemoglobin 13.5 g/dL (11.5-15.3); Lymphocytes # 0.7 10^3/uL (0.8-4.8); Lymphocytes % 15.9 %; Mean Corpuscular HGB Conc 33.2 g/dL (30.0-36.0); Mean Corpuscular Volume 93.3 fl (81-99); Mean Platelet Volume 11.3 fL (7.4-10.4); Monocytes # 0.4 10^3/uL (0.2-0.9); Monocytes % 9.4 %; Neutrophils # 2.99 10^3/uL (1.8-7.7); Neutrophils % 71.8 %; Nucleated Red Blood Cells % 0 %; Platelet Count 149 10^3/cmm (130-400); Red Blood Count 4.36 10^6/uL (4.1-5.3); Red Cell Distribution Width 14.9 % (12.1-15.1); White Blood Count 4.2 10^3/uL (4.0-10.0)
--- NOTE | 2021-11-28 15:28 | ECG_ITS ---
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 Measurements Intervals [place] Rate: 67 P: 90 FL: 209 QRS: 123 QRSD: 102 T: -3 QT: 448 QTc: 476 Interpretive Statements SINUS RHYTHM RIGHT AXIS DEVIATION [QRS AXIS > 100] POSSIBLE ANTERIOR MYOCARDIAL INFARCTION , OF INDETERMINATE AGE [30 ms Q WAVE IN V3/V4, OR R < 0.2 mV IN V4] Compared to ECG 11/28/2021 14:00:11 Right-axis deviation now present Left-axis deviation no longer present Myocardial infarct finding still present Electronically Signed On 11-28-2021 22:54:59 CDT by Soraya Ignacio M.D. [id number]
[2021-11-28 15:44] LABS: Blood Urea Nitrogen 34 mg/dL (6-20); Calcium 7.1 mg/dL (8.5-10.5); Carbon Dioxide 24 mmol/L (22-29); Chloride 97 mmol/L (98-107); Glomerular Filtration Rate 6.3 mL/min (90-130); Glucose 99 mg/dL (65-115); NT Pro B Type Natriuretic Pept 6254 pg/mL (0-125); Osmolality Calculated 292 mOsm/kg (285-295); Sodium 137 mmol/L (136-145)
[2021-11-28 15:46] LABS: Anion Gap 21.5 (5-19); Potassium 5.5 mmol/L (3.5-5.1); Troponin(5th) Baseline 124 ng/L (0-10)
[2021-11-28] MEDS: aspirin 325 mg EC Tablet PO (16:10)
[2021-11-28] MEDS: cefepime 1,000 MG in sodium chloride 0.9% (plus) 50 ML 100 MG IV (16:28)
[2021-11-28] MEDS: vancomycin 1,000 MG in sodium chloride 0.9% 250 ML 250 MG IV (17:30)
[2021-11-28 17:46] LABS: Troponin 5 2HR Delta -9.5 ABS# (0-10)
[2021-11-28 17:48] LABS: Troponin 5 2HR 114.5 ng/L (0-10)
--- NOTE | 2021-11-28 17:50 | P.CONIM_ITS ---
Providers/Reason For Consult Consulting Physician/Specialty*: Nephrology Reason for Consult*: ESRD mgmt Attending Physician: Ewa Mccarty MD Primary Care Provider: Jacob Sharp, DO History of Present Illness History of Present Illness Thank for consultation, today the pleasure of reviewing this very pleasant 56-year-old female that I know very well from prior hospitalizations. She was discharged just 9 days ago after presenting with chest pain. She underwent coronary angiography which showed distal showed OM with 80% stenosis, too small to be intervened on and was given Ranexa. She now presents again with similar chest pain since 5 and this morning, sharp in nature with associated nausea with exertional dyspnea for the last few days. She had a chest x-ray which showed possible right-sided pneumonia. She was given vancomycin and cefepime. Potassium 5.5. Currently breathing comfortably on nasal cannula oxygen. She denies any extremity edema, other features of hypervolemia. No uremic symptoms. No issues with her access. Medications/Allergies Home Medications Medication Instructions Recorded Confirmed Last Taken Type aspirin 81 mg chewable tablet 81 mg PO DAILY@06/25/19 11/28/21 11/28/21 History omega 9-tjx-eol-fish oil 300 1 cap PO BID@01/17/20 11/28/21 11/28/21 History mg-1,000 mg capsule,delayed release (Fish Oil) nitroglycerin 0.4 mg sublingual 0.4 mg SUBLINGUAL Q5M PRN #25 tab 03/26/20 11/28/21 04/18/20 Rx tablet cholecalciferol (vitamin D3) 25 25 mcg PO DAILY@05/14/20 11/28/21 11/28/21 History mcg (1,000 unit) tablet (Vitamin D3) pantoprazole 40 mg tablet,delayed 40 mg PO DAILY@08 #90 tab 04/02/21 11/28/21 Rx release pen needle, diabetic 32 gauge x #100 ea 06/17/21 11/28/21 Unknown Rx (ReliOn Pen [place]) escitalopram oxalate 20 mg tablet 20 mg PO DAILY 07/22/21 11/28/21 11/28/21 History furosemide 40 mg tablet 40 mg PO QAM #30 tab 08/12/21 11/28/21 11/28/21 Rx PROSTHETIC SUPPLIES #1 ea 08/21/21 11/28/21 Unknown Rx ondansetron HCl 8 mg tablet 8 mg PO Q8H PRN 09/02/21 11/28/21 10/13/21 History vitamin B complex-vitamin C 100 1 tab PO DAILY 09/02/21 11/28/21 11/28/21 History mg-folic acid 1 mg tablet (Dialyvite) insulin glargine 100 unit/mL (3 5 unit (0.05 mL) SUBCUT BID@08,20 09/05/21 11/28/21 11/28/21 Rx mL) subcutaneous pen (Lantus #15 ml Solostar U-100 Insulin) glucosamine sulf dipot 1 cap PO DAILY 09/22/21 11/28/21 11/28/21 History chlr,msm,chond 550 mg-C 30 mg-janet 1 mg capsule (Glucosamine Chondroitin) carvedilol 3.125 mg tablet 3.125 mg PO BID #60 tab 09/26/21 11/28/21 11/28/21 Rx clonazepam 0.25 mg disintegrating 0.25 mg PO BID PRN #30 tab 10/14/21 11/28/21 10/19/21 Rx tablet oxycodone 5 mg tablet 5 mg PO Q12H 30 Days #60 tab 10/14/21 11/28/21 11/27/21 Rx levothyroxine 150 mcg tablet 150 mcg PO QAM #90 tab 11/04/21 11/28/21 11/28/21 Rx (Euthyrox) cyclobenzaprine 10 mg tablet 10 mg PO TID PRN #30 tab 11/13/21 11/28/21 Unknown Rx ranolazine 500 mg tablet,extended 500 mg PO DAILY 30 Days #30 tab 11/19/21 11/28/21 11/28/21 Rx release,12 hr sevelamer carbonate 800 mg tablet 1,600 mg PO TID 30 Days #180 tab 11/19/21 11/28/21 11/28/21 Rx amlodipine 10 mg tablet 10 mg PO DAILY 11/28/21 11/28/21 11/28/21 History hydralazine 100 mg tablet 100 mg PO BID 11/28/21 11/28/21 11/28/21 History isosorbide mononitrate 30 mg 30 mg PO DAILY 0611/28/21 11/28/21 History tablet,extended release 24 hr Allergies Allergy/AdvReac Type Severity Reaction Status Date / Time metformin [From Glucophage] Allergy Severe Unknown Verified 11/17/21 11:04 venlafaxine [From Effexor] Allergy Severe ADR-Shakine Verified 11/17/21 11:04 PFSH Acute PFSH: Medical History Adjustment disorder with mixed disturbance of emotions and conduct Anemia in chronic kidney disease Anxiety BPPV (benign paroxysmal positional vertigo) CAD (coronary artery disease) Carotid stenosis 04/2020: Right < 50%, Left near 70% Chronic diastolic CHF (congestive heart failure) 12/2020 EF 55%, grade II/IV diastolic dysfunction Chronic kidney disease Chronic left sacroiliac joint pain CKD (chronic kidney disease) stage 5, GFR less than 15 ml/min Claustrophobia Compressive atelectasis Congestive heart failure Diabetes mellitus Diabetes mellitus, with long-term current use of insulin Diverticulitis Elevated troponin End stage renal disease ESBL (extended spectrum beta-lactamase) producing bacteria infection ESRD (end stage renal disease) on dialysis DAILY (generalized anxiety disorder) Gastroparesis GERD (gastroesophageal reflux disease) Gram-negative bacteremia Hemodialysis catheter dysfunction HTN (hypertension) Hyperlipidemia Hypocalcemia due to chronic kidney disease Hypothyroidism Hypoxemia Lumbar back pain Major depression, recurrent Mixed dyslipidemia DOROTEO on CPAP PAD (peripheral artery disease) Partial nontraumatic amputation of left foot (~06/2019) Peripheral vascular disease Peritonitis associated with peritoneal dialysis Phantom pain Pneumonia due to COVID-19 virus (~12/2020) Positive cardiac stress test Sleep apnea Suicidal ideation TIA (transient ischemic attack) Vitamin D deficiency Surgical History AV (arteriovenous fistula) (~10/2020) H/O hysterectomy with oophorectomy History of appendectomy History of cataract surgery History of heart artery stent PCI to LAD, done in [place], [place] 10/2018 ENRIQUE to mid LAD at [facility] 04/2020 History of hysterectomy History of left heart catheterization 04/2020 Findings: 1. There is severe coronary artery disease. 2. FFR of mid LAD was 0.76. 3. Severe OM 2 stenosis. However this is a small sized distal vessel. 4. Mid Left Anterior Descending Coronary Artery was treated with Balloon and Drug Eluting Stent History of right below knee amputation Peritoneal dialysis catheter in place Removed due to recurrent peritonitis S/P cholecystectomy S/P PICC central line placement (~2019) Status post amputation of toe Family History Denies family history of CAD (coronary artery disease) Clotting disorder Dementia Bleeding disorder Social History Smoking and tobacco status: never smoked Alcohol intake: never Household members: spouse and family History of recent travel: No Vitals/I&O/Wt Last Vital Signs Temp 97.4 F L 11/28/21 13:34 Pulse 70 11/28/21 16:29 Resp 15 11/28/21 16:29 BP 153/65 11/28/21 16:29 Pulse Ox 93 11/28/21 16:29 11/28/21 11/28/21 11/28/21 06:59 14:59 22:59 Intake Total 50 / 50 Balance 50 / 50 Weight last 48 hrs Weight 90.718 kg Physical Exam Narrative: Constitutional: Awake, comfortable HEENT: Wet mucosa, no jvp, non icteric Lungs: Bilaterally clear without discernible wheeze or rales in all lung zones CVS: S1 S2, no murmurs Abdo: Soft, BS ok Ext 4: Minimal edema, peripheral perfusion with no cyanosis Neurological: Grossly non-focal Data : 11/28/21 15:00 11/28/21 15:00 A&P Assessment and plan (1) End-stage renal disease (ESRD): 1. End-stage renal disease No indication for urgent dialysis this evening. Perform dialysis tomorrow, 2 potassium with 3 L of ultrafiltration Continue Wednesday, Wednesday and Wednesday dialysis after this. Dose medication for GFR less than 15 on dialysis 2. Hyperkalemia Mild, low potassium diet. No other therapy. Dialysis tomorrow. 3. Chest pain Known to have coraonary vasc disease, with 80% stenosis of distal OM being treated with Ranexa. Also being treated for pneumonia based on chest x-ray findings with antibiotics. Management per [facility] general medical team. 4. Hemodynamics Look stable, blood pressure 153/65, continue home medications 5. Chronic ESRD issues To be handled as an outpatient as part of standard monthly management. Continue home medication including Renvela for phosphorus binding. Thank for consultation, as always it is a pleasure to follow his patients with you Exam and interview performed with aid of bedside RN using telemedicine Time spent 20 min inc > 50% of time in face to face counseling Zhou Mcfarland MD [facility] [phone] Status: Acute Coding Level of Care Code Acute Surfboard Designer for Chg Fwd Diagnoses End-stage renal disease (ESRD) N18.6
--- NOTE | 2021-11-28 18:03 | PM.HP ---
Providers/Chief Complaint Admitting Physician: Ewa Mccarty MD Primary Care Provider: Jacob Sharp DO Chief Complaint: cp History of Present Illness Rizwana Herzog is a 56 year old female who carries multiple comorbid condition including diabetes, right BKA, hemodialysis dependent, previously on peritoneal dialysis, Wednesday hemodialysis, presented today with chief complaint of not feeling well and pleuritic chest pain. Patient is stating that her symptoms started few days ago but today she started experiencing chest pain which was getting worse with taking deep breaths, she has not noticed any nausea, vomiting, orthopnea, PND or fever. Because of her symptoms she missed her dialysis today. She started feeling worse and decided to come to the ED for further evaluation. At baseline she is using 2 L of oxygen and. In the ER she was diagnosed with right-sided lower lobe pneumonia She is not septic, her oxygen requirement is still at 2 L. She is currently being treated as community-acquired pneumonia. She is now describing her chest pain as pressure-like sensation, no nausea or vomiting. Hospital service has been requested to admit her and treat her for pneumonia. Honey Grader And Blender has been consulted as well. Review of Systems Const: Reports: chills, body aches and change in appetite; Denies: fever(s) Eyes: Denies: change in vision ENMT: Denies: throat pain Card: Reports: chest pain Resp: Denies: dyspnea GI: Denies: abdominal pain : Denies: flank pain Musc: Denies: neck pain Skin/Breast: Denies: rash Neuro: Denies: headache(s) Psych: Reports: anxiety Endo: Denies: polyuria Refugio/Lymph: Denies: easy bruising All/Imm: Denies: urticaria Medications/Allergies Home Medications Medication Instructions Recorded Confirmed Last Taken Type aspirin 81 mg chewable tablet 81 mg PO DAILY@06/25/19 11/28/21 11/28/21 History omega 5-ixc-tzk-fish oil 300 1 cap PO BID@01/17/20 11/28/21 11/28/21 History mg-1,000 mg capsule,delayed release (Fish Oil) nitroglycerin 0.4 mg sublingual 0.4 mg SUBLINGUAL Q5M PRN #25 tab 03/26/20 11/28/21 04/18/20 Rx tablet cholecalciferol (vitamin D3) 25 25 mcg PO DAILY@08 05/14/20 11/28/21 11/28/21 History mcg (1,000 unit) tablet (Vitamin D3) pantoprazole 40 mg tablet,delayed 40 mg PO DAILY@08 #90 tab 04/02/21 11/28/21 11/28/21 Rx release pen needle, diabetic 32 gauge x #100 ea 06/17/21 11/28/21 Unknown Rx (ReliOn Pen [place]) escitalopram oxalate 20 mg tablet 20 mg PO DAILY 07/22/21 11/28/21 11/28/21 History furosemide 40 mg tablet 40 mg PO QAM #30 tab 08/12/21 11/28/21 11/28/21 Rx PROSTHETIC SUPPLIES #1 ea 08/21/21 11/28/21 Unknown Rx ondansetron HCl 8 mg tablet 8 mg PO Q8H PRN 09/02/21 11/28/21 10/13/21 History vitamin B complex-vitamin C 100 1 tab PO DAILY 09/02/21 11/28/21 11/28/21 History mg-folic acid 1 mg tablet (Dialyvite) insulin glargine 100 unit/mL (3 5 unit (0.05 mL) SUBCUT BID@,09/05/21 11/28/21 11/28/21 Rx mL) subcutaneous pen (Lantus #15 ml Solostar U-100 Insulin) glucosamine sulf dipot 1 cap PO DAILY 09/22/21 11/28/21 11/28/21 History chlr,msm,chond 550 mg-C 30 mg-janet 1 mg capsule (Glucosamine Chondroitin) carvedilol 3.125 mg tablet 3.125 mg PO BID #60 tab 09/26/21 11/28/21 11/28/21 Rx clonazepam 0.25 mg disintegrating 0.25 mg PO BID PRN #30 tab 10/14/21 11/28/21 10/19/21 Rx tablet oxycodone 5 mg tablet 5 mg PO Q12H 30 Days #60 tab 10/14/21 11/28/21 11/27/21 Rx levothyroxine 150 mcg tablet 150 mcg PO QAM #90 tab 11/04/21 11/28/21 11/28/21 Rx (Euthyrox) cyclobenzaprine 10 mg tablet 10 mg PO TID PRN #30 tab 11/13/21 11/28/21 Unknown Rx ranolazine 500 mg tablet,extended 500 mg PO DAILY 30 Days #30 tab 11/19/21 11/28/21 11/28/21 Rx release,12 hr sevelamer carbonate 800 mg tablet 1,600 mg PO TID 30 Days #180 tab 11/19/21 11/28/21 11/28/21 Rx amlodipine 10 mg tablet 10 mg PO DAILY 11/28/21 11/28/21 11/28/21 History hydralazine 100 mg tablet 100 mg PO BID 11/28/21 11/28/21 11/28/21 History isosorbide mononitrate 30 mg 30 mg PO DAILY 11/28/21 11/28/21 11/28/21 History tablet,extended release 24 hr Allergies Allergy/AdvReac Type Severity Reaction Status Date / Time metformin [From Glucophage] Allergy Severe Unknown Verified 11/17/21 11:04 venlafaxine [From Effexor] Allergy Severe ADR-Shakine Verified 11/17/21 11:04 ss PFSH Acute PFSH: Medical History Adjustment disorder with mixed disturbance of emotions and conduct Anemia in chronic kidney disease Anxiety BPPV (benign paroxysmal positional vertigo) CAD (coronary artery disease) Carotid stenosis 04/2020: Right < 50%, Left near 70% Chronic diastolic CHF (congestive heart failure) 12/2020 EF 55%, grade II/IV diastolic dysfunction Chronic kidney disease Chronic left sacroiliac joint pain CKD (chronic kidney disease) stage 5, GFR less than 15 ml/min Claustrophobia Compressive atelectasis Congestive heart failure Diabetes mellitus Diabetes mellitus, with long-term current use of insulin Diverticulitis Elevated troponin End stage renal disease ESBL (extended spectrum beta-lactamase) producing bacteria infection ESRD (end stage renal disease) on dialysis DAILY (generalized anxiety disorder) Gastroparesis GERD (gastroesophageal reflux disease) Gram-negative bacteremia Hemodialysis catheter dysfunction HTN (hypertension) Hyperlipidemia Hypocalcemia due to chronic kidney disease Hypothyroidism Hypoxemia Lumbar back pain Major depression, recurrent Mixed dyslipidemia DOROTEO on CPAP PAD (peripheral artery disease) Partial nontraumatic amputation of left foot (~06/2019) Peripheral vascular disease Peritonitis associated with peritoneal dialysis Phantom pain Pneumonia due to COVID-19 virus (~12/2020) Positive cardiac stress test Sleep apnea Suicidal ideation TIA (transient ischemic attack) Vitamin D deficiency Surgical History AV (arteriovenous fistula) (~10/2020) H/O hysterectomy with oophorectomy History of appendectomy History of cataract surgery History of heart artery stent PCI to LAD, done in [place], [place] 10/2018 ENRIQUE to mid LAD at [facility] 04/2020 History of hysterectomy History of left heart catheterization 04/2020 Findings: 1. There is severe coronary artery disease. 2. FFR of mid LAD was 0.76. 3. Severe OM 2 stenosis. However this is a small sized distal vessel. 4. Mid Left Anterior Descending Coronary Artery was treated with Balloon and Drug Eluting Stent History of right below knee amputation Peritoneal dialysis catheter in place Removed due to recurrent peritonitis S/P cholecystectomy S/P PICC central line placement (~2019) Status post amputation of toe Family History Denies family history of CAD (coronary artery disease) Clotting disorder Dementia Bleeding disorder Social History Smoking and tobacco status: never smoked Alcohol intake: never Household members: spouse and family History of recent travel: No Vitals/I&O/Wt Last Vital Signs Temp 97.4 F L 11/28/21 13:34 Pulse 70 11/28/21 16:29 Resp 15 11/28/21 16:29 BP 153/65 11/28/21 16:29 Pulse Ox 93 11/28/21 16:29 11/28/21 11/28/21 11/28/21 06:59 14:59 22:59 Intake Total 50 / 50 Balance 50 / 50 Weight last 48 hrs Weight 90.718 kg Physical Exam Narrative: Very cooperative pleasant female Currently laying flat Currently saturating well on 1.5 L nasal cannula No active shortness of breath She does have pleuritic chest pain, she winces in pain on taking deep breaths Abdomen soft Right BKA Legs are not swollen Looks euvolemic Nonfocal neuro exam Data : 11/28/21 15:00 11/28/21 15:00 A&P Assessment and plan (1) End-stage renal disease (ESRD): Status: Acute (2) Pleuritic pain: Status: Acute (3) Pneumonia: Status: Acute Plan Pleuritic chest pain Related to right-sided lower lobe pneumonia She is not septic Oxygen requirement has not worsened Infectious doing well on 1.5 L nasal cannula saturating 97% No active shortness of breath Troponin trending down EKG unremarkable End-stage renal disease, nephro consulted Plan for dialysis tomorrow Normally she gets Wednesday Hypertension: Currently normotensive COPD without acute exacerbation Full code Renal dialysis diet She might be able to go home in next 48 hours Attestations Medical Necessity Statement*: She might be able to go home within 48 hours, currently need dialysis and treatment for pneumonia Time Spent in Patient Care: 40 Coding Level of Care Code Acute Utility Accounts Director for Maris Braden Diagnoses End-stage renal disease (ESRD) N18.6 Pleuritic pain R07.81 Pneumonia J18.9
[2021-11-28] MEDS: heparin 5,000 unit/mL INJ 1 mL 5000 UNIT SUBCUT (18:38)
--- NOTE | 2021-11-28 19:28 | ECG_ITS ---
[facility] Test Date: 2021-11-28 Pat Name: Rizwana Herzog Department: Room: 278 Gender: Female Case Sealer: : 1965 Requested By: Abena Bender Order Number: [id number] Catherine MD: Soraya Ignacio M.D. Measurements Intervals Baring Rate: 68 P: -23 TX: 206 QRS: -59 QRSD: 95 T: 68 QT: 449 QTc: 479 Interpretive Statements SINUS RHYTHM LEFT AXIS DEVIATION [QRS AXIS < -30] POSSIBLE ANTERIOR MYOCARDIAL INFARCTION , OF INDETERMINATE AGE [30 ms Q WAVE IN V3/V4, OR R < 0.2 mV IN V4] Compared to ECG 11/28/2021 17:52:44 Left-axis deviation now present Right-axis deviation no longer present Myocardial infarct finding still present Electronically Signed On 11-28-2021 22:54:30 CDT by Soraya Ignacio M.D. [id number]
[2021-11-28] MEDS: omega-3 fatty acids 1,000 mg Capsule 1000 MG PO (20:24)
[2021-11-28] MEDS: sevelamer 800 mg Tablet 1600 MG PO (20:24)
[2021-11-28] MEDS: carvedilol 3.125 mg Tablet PO (20:25)
[2021-11-28] MEDS: oxyCODONE 5 mg IR Tab/Cap PO (20:25)
[2021-11-28] MEDS: piperacillin-tazobactam 3.375 GM in sodium chloride 0.9% (plus) 50 ML IV (20:26)
[2021-11-28] MEDS: insulin glargine 100 units/1 mL 5 UNIT SUBCUT (21:46)
[2021-11-28 22:22] LABS: Troponin 5 6HR 111.6 ng/L (0-10); Troponin 5 6HR Delta -12.4 ng/L (0-12)
[2021-11-29] VITALS (11 sets, daily range): BP systolic 134–186; BP diastolic 64–78; PULSE 62–73; RESP 16–20; TEMP 36.5–36.8; O2SAT 90–93
[2021-11-29] MEDS: levothyroxine 150 mcg Tablet PO (05:59)
[2021-11-29] MEDS: heparin 5,000 unit/mL INJ 1 mL 5000 UNIT SUBCUT ×2 (05:59→18:05)
[2021-11-29] MEDS: FUROsemide 40 mg Tablet PO (05:59)
[2021-11-29 06:01] LABS: Glucose Point of Care 77 mg/dL (70-110)
[2021-11-29] MEDS: cefepime 1,000 MG in sodium chloride 0.9% (plus) 50 ML 100 MG IV ×2 (06:01→18:05)
[2021-11-29 06:04] LABS: Albumin Level 3.5 g/dL (3.5-5.2); Alkaline Phosphatase 107 IU/L (35-105); Blood Urea Nitrogen 42 mg/dL (6-20); Calcium 6.6 mg/dL (8.5-10.5); Carbon Dioxide 23 mmol/L (22-29); Chloride 100 mmol/L (98-107); Globulin 2.2 g/dL (1.3-4.6); Glomerular Filtration Rate 5.4 mL/min (90-130); Glucose 80 mg/dL (65-115); Magnesium 1.8 mg/dL (1.7-2.3); Osmolality Calculated 295 mOsm/kg (285-295); Phosphorus 5.7 mg/dL (2.5-4.5); Sodium 138 mmol/L (136-145); Total Bilirubin 0.4 mg/dL (0.15-1.2); Total Protein 5.7 g/dL (6.6-8.7)
[2021-11-29 06:05] LABS: Anion Gap 20.5 (5-19); Potassium 5.5 mmol/L (3.5-5.1)
[2021-11-29 06:06] LABS: Alanine Aminotransferase 10 U/L (0-33); Aspartate Amino Transferase 23 U/L (0-32)
[2021-11-29 06:26] LABS: Basophils % 0.6 %; Eosinophils # 0.2 10^3/uL (0.0-0.8); Eosinophils % 5.3 %; Hemoglobin 12.1 g/dL (11.5-15.3); Lymphocytes # 0.6 10^3/uL (0.8-4.8); Lymphocytes % 16.5 %; Mean Corpuscular HGB Conc 31.8 g/dL (30.0-36.0); Mean Corpuscular Hemoglobin 30.6 pg (28.0-34.0); Mean Corpuscular Volume 96.2 fl (81-99); Monocytes # 0.3 10^3/uL (0.2-0.9); Monocytes % 9.4 %; Neutrophils # 2.28 10^3/uL (1.8-7.7); Neutrophils % 67.3 %; Nucleated Red Blood Cells % 0 %; Platelet Count 134 10^3/cmm (130-400); Red Blood Count 3.95 10^6/uL (4.1-5.3); Red Cell Distribution Width 15.1 % (12.1-15.1); White Blood Count 3.4 10^3/uL (4.0-10.0)
[2021-11-29 06:51] LABS: Glucose Point of Care 113 mg/dL (70-110)
[2021-11-29 06:51] LABS: Glucose Point of Care 117 mg/dL (70-110)
--- NOTE | 2021-11-29 08:09 | P.PN_ITS ---
Subjective Subjective: Ms. Herzog is seen and examined on hemodialysis today. She feels generally unwell, weak, tired, however nothing specific. She does have a little bit of difficulty breathing. Dialysis is just initiated and is so far growing well. Dialysis and hemodynamic parameters are reviewed. Vitals/I&O/Wt Last Vital Signs Temp 98.2 F 11/29/21 04:00 Pulse 62 11/29/21 07:38 Resp 16 11/29/21 07:38 BP 151/70 11/29/21 07:50 Pulse Ox 93 11/29/21 07:38 11/28/21 11/29/21 11/29/21 22:59 06:59 14:59 Intake Total 50 / 50 850 / 900 50 / 50 Output Total 300 / 300 Balance 50 / 50 550 / 600 50 / 50 Weight last 48 hrs Weight 90.718 kg Physical Exam Narrative: Constitutional: Awake, comfortable HEENT: Wet mucosa, no jvp, non icteric Lungs: Bilaterally clear without discernible wheeze or rales in all lung zones CVS: S1 S2, no murmurs Abdo: Soft, BS ok Ext 4: Minimal edema, peripheral perfusion with no cyanosis Neurological: Grossly non-focal Data : 11/29/21 06:16 11/29/21 05:25 Micro: Microbiology 11/28/21 23:55 Legionella Urinary Antigen - Final Urine,Voided A&P Assessment and plan (1) End-stage renal disease (ESRD): 1. End-stage renal disease Seen on dialysis. 2 potassium with 3 L of ultrafiltration Continue Wednesday, Wednesday and Wednesday dialysis after this. Dose medication for GFR less than 15 on dialysis 2. Hyperkalemia Mild, low potassium diet. Dialysis will help 3. Chest pain Known to have coronary vasc disease, with 80% stenosis of distal OM being treated with Ranexa. Also being treated for pneumonia based on chest x-ray findings with antibiotics. Management per [facility] general medical team. 4. Hemodynamics Look stable 5. Chronic ESRD issues To be handled as an outpatient as part of standard monthly management. Continue home medication including Renvela for phosphorus binding. Thank for consultation, as always it is a pleasure to follow his patients with you Exam and interview performed with aid of bedside RN using telemedicine Time spent 20 min inc > 50% of time in face to face counseling Zhou Mcfarland MD [facility] [phone] Status: Acute Attestations Medical Necessity Statement*: eval for ESRD Coding Level of Care Code Acute Senior Reservoir Engineer for Maris Fwparth Diagnoses End-stage renal disease (ESRD) N18.6
[2021-11-29] MEDS: piperacillin-tazobactam 3.375 GM in sodium chloride 0.9% (plus) 50 ML IV ×2 (10:01→19:41)
--- NOTE | 2021-11-29 11:35 | PC.NURSE ---
dialysis today...[id number].tolerated well
[2021-11-29 11:50] LABS: Glucose Point of Care 99 mg/dL (70-110)
[2021-11-29] MEDS: oxyCODONE 5 mg IR Tab/Cap PO ×2 (12:07→19:40)
[2021-11-29] MEDS: carvedilol 3.125 mg Tablet PO ×2 (12:07→18:04)
[2021-11-29] MEDS: isosorbide mononitrate ER 30 mg Tablet PO (12:07)
[2021-11-29] MEDS: ranolazine (12HR) 500 mg Tablet PO (12:07)
[2021-11-29] MEDS: aspirin 81 mg Chew Tablet PO (12:08)
[2021-11-29] MEDS: escitalopram 10 mg Tablet 20 MG PO (12:09)
[2021-11-29] MEDS: pantoprazole DR 40 mg Tablet PO (12:09)
[2021-11-29] MEDS: cholecalciferol (vitamin D3) 1,000 unit Tablet 1000 UNIT PO (12:10)
[2021-11-29] MEDS: hyDRALAzine 50 mg Tablet 100 MG PO ×2 (12:10→18:04)
[2021-11-29] MEDS: omega-3 fatty acids 1,000 mg Capsule 1000 MG PO ×2 (12:10→19:41)
[2021-11-29] MEDS: amlodipine 10 mg Tablet PO (12:10)
[2021-11-29] MEDS: sevelamer 800 mg Tablet 1600 MG PO ×2 (12:23→18:05)
--- NOTE | 2021-11-29 14:24 | P.PN_ITS ---
Subjective Subjective: Patient still complains of mild shortness of breath. She just returned from dialysis when I saw her. Blood pressure stable at this time. Vitals/I&O/Wt Last Vital Signs Temp 98.2 F 11/29/21 12:07 Pulse 73 11/29/21 12:07 Resp 16 11/29/21 12:07 BP 186/78 11/29/21 12:07 Pulse Ox 93 11/29/21 07:38 11/28/21 11/29/21 11/29/21 22:59 06:59 14:59 Intake Total 50 / 50 850 / 900 590 / 590 Output Total 300 / 300 3400 / 3400 Balance 50 / 50 550 / 600 -2810 / -2810 Weight last 48 hrs Weight 85.6 kg Weight 90.718 kg Physical Exam Narrative: General: Alert oriented x3, patient seen sitting up in bed appearing comfortable.? No conversational dyspnea noted but says that she feels short of breath at times. No use of accessory muscles. Normocephalic, atraumatic, EOMI, Cardio: Regular rate rhythm, normal S1-S2, S3 present. Respiratory: Coarse breath sounds bilaterally with mild crackles at bases, no wheezes GI: Abdomen soft, nontender, nondistended, bowel sounds + Behavior: Appropriate and cooperative Extremities: Trace edema bilateral lower extremities no cyanosis noted. Data : 11/29/21 06:16 11/29/21 05:25 Micro: Microbiology 11/28/21 23:55 Legionella Urinary Antigen - Final Urine,Voided Bacterial Antigens - Final 11/28/21 22:15 MRSA Culture - Final Nose A&P Assessment and plan (1) Pleuritic pain: Status: Acute (2) End-stage renal disease (ESRD): Status: Acute (3) ESRD on hemodialysis: Status: Acute (4) Phantom pain: Status: Acute (5) S/P hemodialysis catheter insertion: Status: Acute (6) Pneumonia: Status: Acute (7) Anxiety and depression: Status: Acute (8) Acute and chronic respiratory failure: Status: Acute Plan #Right lower lobe pneumonia. #Shortness of breath, lightheadedness, most likely secondary to hypoxia and fluid overload. #Hypertension #End-stage renal disease dialysis Wednesday #Diabetes mellitus #Anemia of chronic disease ? Patient is a dialysis patient Wednesday presented to the [facility] after missed dialysis. ? Right lower lobe pneumonia identified on CT scan ? Continue on Zosyn ? Continue dialysis. Nephrology on board ? Has had right and left heart cath at previous admission. ? Sputum culture gram stain pending ? DuoNeb every 6 hours as needed ? Supportive care ? Sliding scale insulin with Lantus 5 units at bedtime -Continue all home medication Full code Attestations Medical Necessity Statement*: Patient is better but still feeling short of breath. We will keep her in the hospital today and continue IV antibiotics. She is still not back to her baseline. She will cross her 2 midnight stay from admission. Coding Level of Care Code Acute Foreman Shipping Department for Maris Fwd Diagnoses Pleuritic pain R07.81 End-stage renal disease (ESRD) N18.6 ESRD on hemodialysis N18.6; Z99.2 Phantom pain G54.6 S/P hemodialysis catheter insertion Z99.2 Pneumonia J18.9 Anxiety and depression F41.9; F32.A Acute and chronic respiratory failure J96.20
[2021-11-29 17:32] LABS: Glucose Point of Care 126 mg/dL (70-110)
[2021-11-29 17:44] LABS: Coronavirus 229E,HKU1,NL63,OC4 Not Detected (NOT DETECT); SARS-COV-2 Not Detected (NOT DETECT)
[2021-11-29] MEDS: CLONazepam 0.5 mg Tablet 0.25 MG PO (19:40)
[2021-11-29] MEDS: insulin glargine 100 units/1 mL 5 UNIT SUBCUT (19:41)
[2021-11-29 20:56] LABS: Glucose Point of Care 130 mg/dL (70-110)
[2021-11-29] MEDS: cyclobenzaprine 10 mg Tablet PO (22:02)
[2021-11-29 23:40] LABS: Adenovirus Not Detected (NOT DETECT); Chlamydia Pneumoniae Not Detected (NOT DETECT); Human Metapneumovirus Not Detected (NOT DETECT); Human Rhinovirus/Enterovirus Not Detected (NOT DETECT); Influenza A Not Detected (NOT DETECT); Influenza A H1 Not Detected (NOT DETECT); Influenza A H1-2009 Not Detected (NOT DETECT); Influenza A H3 Not Detected (NOT DETECT); Influenza B Not Detected (NOT DETECT); Mycoplasma Pneumoniae Not Detected (NOT DETECT); Parainfluenza Virus Type 1 Not Detected (NOT DETECT); Parainfluenza Virus Type 2 Not Detected (NOT DETECT); Parainfluenza Virus Type 3 Not Detected (NOT DETECT); Parainfluenza Virus Type 4 Not Detected (NOT DETECT); Respiratory Syncytial Virus A Not Detected (NOT DETECT); Respiratory Syncytial Virus B Not Detected (NOT DETECT)
[2021-11-30] VITALS (7 sets, daily range): BP systolic 121–153; BP diastolic 56–76; PULSE 66–74; RESP 15–22; TEMP 36.4–36.9; O2SAT 92–97
[2021-11-30 04:41] LABS: Basophils % 0.5 %; Eosinophils # 0.3 10^3/uL (0.0-0.8); Eosinophils % 8.9 %; Hematocrit 36.2 % (37.0-47.0); Hemoglobin 11.9 g/dL (11.5-15.3); Lymphocytes # 0.7 10^3/uL (0.8-4.8); Lymphocytes % 18.4 %; Mean Corpuscular HGB Conc 32.9 g/dL (30.0-36.0); Mean Corpuscular Hemoglobin 30.7 pg (28.0-34.0); Mean Corpuscular Volume 93.3 fl (81-99); Mean Platelet Volume 11.6 fL (7.4-10.4); Monocytes # 0.4 10^3/uL (0.2-0.9); Neutrophils # 2.34 10^3/uL (1.8-7.7); Neutrophils % 61.7 %; Nucleated Red Blood Cells % 0 %; Platelet Count 154 10^3/cmm (130-400); Red Blood Count 3.88 10^6/uL (4.1-5.3); Red Cell Distribution Width 14.8 % (12.1-15.1); White Blood Count 3.8 10^3/uL (4.0-10.0)
[2021-11-30 05:04] LABS: Anion Gap 17.5 (5-19); Blood Urea Nitrogen 25 mg/dL (6-20); Calcium 7.2 mg/dL (8.5-10.5); Carbon Dioxide 27 mmol/L (22-29); Chloride 96 mmol/L (98-107); Glomerular Filtration Rate 8.2 mL/min (90-130); Glucose 82 mg/dL (65-115); Osmolality Calculated 285 mOsm/kg (285-295); Potassium 4.5 mmol/L (3.5-5.1); Sodium 136 mmol/L (136-145)
[2021-11-30] MEDS: heparin 5,000 unit/mL INJ 1 mL 5000 UNIT SUBCUT (05:20)
[2021-11-30] MEDS: levothyroxine 150 mcg Tablet PO (05:20)
[2021-11-30] MEDS: FUROsemide 40 mg Tablet PO (05:20)
[2021-11-30] MEDS: cefepime 1,000 MG in sodium chloride 0.9% (plus) 50 ML 100 MG IV (05:21)
[2021-11-30 07:37] LABS: Glucose Point of Care 86 mg/dL (70-110)
[2021-11-30] MEDS: sevelamer 800 mg Tablet 1600 MG PO (08:46)
[2021-11-30] MEDS: aspirin 81 mg Chew Tablet PO (08:46)
[2021-11-30] MEDS: cholecalciferol (vitamin D3) 1,000 unit Tablet 1000 UNIT PO (08:47)
[2021-11-30] MEDS: isosorbide mononitrate ER 30 mg Tablet PO (08:47)
[2021-11-30] MEDS: escitalopram 10 mg Tablet 20 MG PO (08:47)
[2021-11-30] MEDS: hyDRALAzine 50 mg Tablet 100 MG PO (08:47)
[2021-11-30] MEDS: ranolazine (12HR) 500 mg Tablet PO (08:47)
[2021-11-30] MEDS: pantoprazole DR 40 mg Tablet PO (08:47)
[2021-11-30] MEDS: carvedilol 3.125 mg Tablet PO (08:47)
[2021-11-30] MEDS: amlodipine 10 mg Tablet PO (08:47)
[2021-11-30] MEDS: oxyCODONE 5 mg IR Tab/Cap PO (08:48)
[2021-11-30] MEDS: omega-3 fatty acids 1,000 mg Capsule 1000 MG PO (09:06)
[2021-11-30] MEDS: piperacillin-tazobactam 3.375 GM in sodium chloride 0.9% (plus) 50 ML IV (09:06)
--- NOTE | 2021-11-30 09:18 | P.PN_ITS ---
Subjective Subjective: feels well. dialysis went well. no n/v/f/c/willingham/d. Medications: Reviewed: Yes Medication Review Details: Current Medications Albuterol/Ipratropium (Ipratropium-Albuterol 3 Ml Neb) 3 ml INHALATION Q4H PRN PRN Reason: SHORTNESS OF BREATH Amlodipine Besylate (Amlodipine 10 Mg Tablet) 10 mg PO DAILY [facility] Last Admin: 11/30/21 08:47 Dose: 10 mg Documented by: Aspirin (Aspirin 81 Mg Chew Tablet) 81 mg PO DAILY@08 [facility] Last Admin: 11/30/21 08:46 Dose: 81 mg Documented by: Carvedilol (Carvedilol 3.125 Mg Tablet) 3.125 mg PO BID [facility] Last Admin: 11/30/21 08:47 Dose: 3.125 mg Documented by: Clonazepam (Clonazepam 0.5 Mg Tablet) 0.25 mg PO BID PRN PRN Reason: Anxiety Last Admin: 11/29/21 19:40 Dose: 0.25 mg Documented by: Cyclobenzaprine HCl (Cyclobenzaprine 10 Mg Tablet) 10 mg PO TID PRN PRN Reason: muscle spasm Last Admin: 11/29/21 22:02 Dose: 10 mg Documented by: Escitalopram Oxalate (Escitalopram 10 Mg Tablet) 20 mg PO DAILY [facility] Last Admin: 11/30/21 08:47 Dose: 20 mg Documented by: Furosemide (Furosemide 40 Mg Tablet) 40 mg PO QAM [facility] Last Admin: 11/30/21 05:20 Dose: 40 mg Documented by: Heparin Sodium (Porcine) (Heparin 5,000 Unit/Ml Inj 1 Ml) 5,000 unit SUBCUT Q12H [facility] Last Admin: 11/30/21 05:20 Dose: 5,000 unit Documented by: Hydralazine HCl (Hydralazine 50 Mg Tablet) 100 mg PO BID [facility] Last Admin: 11/30/21 08:47 Dose: 100 mg Documented by: Piperacillin Sod/Tazobactam (Sod 3.375 gm/ Sodium Chloride) 50 mls @ 12.5 mls/hr IV Q12H [facility] Last Admin: 11/30/21 09:06 Dose: 12.5 mls/hr Documented by: Cefepime HCl 1,000 mg/ Sodium (Chloride) 50 mls @ 100 mls/hr IV Q12H [facility]; Protocol Last Infusion: 11/30/21 05:59 Dose: Infused Documented by: Insulin Glargine (Insulin Glargine 100 Units/1 Ml) 5 unit SUBCUT BID@ [facility] Last Admin: 11/30/21 09:06 Dose: Not Given Documented by: Isosorbide Mononitrate (Isosorbide Mononitrate Er 30 Mg Tablet) 30 mg PO DAILY [facility] Last Admin: 11/30/21 08:47 Dose: 30 mg Documented by: Levothyroxine Sodium (Levothyroxine 150 Mcg Tablet) 150 mcg PO QAM [facility] Last Admin: 11/30/21 05:20 Dose: 150 mcg Documented by: Nitroglycerin (Nitroglycerin 0.4 Mg Sublingual Tablet) 0.4 mg SUBLINGUAL Q5M PRN PRN Reason: Chest Pain Non-Formulary Medication (Glucos Sul [id number] [Glucosamine Chondroitin]) 1 cap PO DAILY [facility] Last Admin: 11/30/21 09:07 Dose: Not Given Documented by: Non-Formulary Medication (B Complex-Vitamin C-Folic Acid [Dialyvite]) 1 tab PO DAILY [facility] Last Admin: 11/30/21 09:07 Dose: Not Given Documented by: Mrftt-6-Wgon Ethyl Esters ([place]asta-3 Fatty Acids 1,000 Mg Capsule) 1,000 mg PO BID@ [facility] Last Admin: 11/30/21 09:06 Dose: 1,000 mg Documented by: Ondansetron HCl (Ondansetron 2 Mg/Ml Sdv 2 Ml) 4 mg IVP Q8H PRN PRN Reason: vomiting, or N/V if npo Ondansetron HCl (Ondansetron 4 Mg Tablet) 8 mg PO Q8H PRN PRN Reason: Nausea And Vomiting Oxycodone HCl (Oxycodone 5 Mg Ir Tab/Cap) 5 mg PO Q12H [facility] Last Admin: 11/30/21 08:48 Dose: 5 mg Documented by: Pantoprazole Sodium (Pantoprazole Dr 40 Mg Tablet) 40 mg PO DAILY@08 [facility] Last Admin: 11/30/21 08:47 Dose: 40 mg Documented by: Ranolazine (Ranolazine (12hr) 500 Mg Tablet) 500 mg PO DAILY [facility] Last Admin: 11/30/21 08:47 Dose: 500 mg Documented by: Sevelamer Carbonate (Sevelamer 800 Mg Tablet) 1,600 mg PO AC [facility] Last Admin: 11/30/21 08:46 Dose: 1,600 mg Documented by: Vitamin D (Cholecalciferol (Vitamin D3) 1,000 Unit Tablet) 1,000 unit PO DAILY@08 [facility] Last Admin: 11/30/21 08:47 Dose: 1,000 unit Documented by: Vitals/I&O/Wt Last Vital Signs Temp 98.1 F 11/30/21 08:00 Pulse 74 11/30/21 08:00 Resp 20 H 11/30/21 08:48 BP 124/61 11/30/21 08:00 Pulse Ox 92 11/30/21 08:00 11/29/21 11/30/21 11/30/21 22:59 06:59 14:59 Intake Total 660 / 1490 200 / 1690 Output Total 100 / 3500 Balance 660 / -1910 100 / -1810 Weight last 48 hrs Weight 85.6 kg Weight 90.718 kg Physical Exam Narrative: obese in bed, NARD vss heent- nc/at, eomi neck supple lungs rt basal dullness, otherwise clear heart reg, no rub abd soft, nt, nd, + bs ext 1+ ankle edema access- LUE AV access neuro- a,a, o x 3 Data : 11/30/21 03:30 11/30/21 03:30 Micro: Microbiology 11/28/21 23:55 Legionella Urinary Antigen - Final Urine,Voided Bacterial Antigens - Final 11/28/21 22:15 MRSA Culture - Final Nose A&P Assessment and plan (1) ESRD on hemodialysis: 56 yr old female 1. ESRD- s/p extra HD yesterday -repeat HD in am 2. pna- renal dose abx 3.leukopenia 4. known CAD 5. hypoclacemia and hyperphosphatemia- use ca based binder Status: Acute Plan see above Attestations Medical Necessity Statement*: esrd, pna Time Spent in Patient Care: 16 - 35 minutes (>than 50% of time spent in counselling and/or direct pt care on unit) . 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
[2021-11-30] MEDS: ipratropium-albuterol 3 mL Neb INHALATION (09:35)
[2021-11-30 10:05] LABS: Hepatitis B Surface AB 28.7 (11.5-1000); Hepatitis B Surface Antigen Non-Reactive (Nonreactive); Hepatitis C Virus Antibody Non-Reactive (Nonreactive)
[2021-11-30 11:12] LABS: Glucose Point of Care 132 mg/dL (70-110)
--- NOTE | 2021-11-30 12:17 | PM.DCS ---
Discharge Providers Date of Admission: 11/28/21 16:08 Date of Discharge: November 30, 2021 Attending Provider at Admission: Ewa Mccarty MD Attending Provider at Discharge: Ewa Mccarty MD Primary Care Provider: Jacob Yadav DO Diagnoses at Discharge Discharge Diagnosis (1) ESRD on hemodialysis: Status: Acute Reason for Visit Reason for Visit: cp Brief History: Rizwana Herzog is a 56 year old female who carries multiple comorbid condition including diabetes, right BKA, hemodialysis dependent, previously on peritoneal dialysis, Wednesday hemodialysis, presented today with chief complaint of not feeling well and pleuritic chest pain.? Patient is stating that her symptoms started few days ago but today she started experiencing chest pain which was getting worse with taking deep breaths, she has not noticed any nausea, vomiting, orthopnea, PND or fever.? Because of her symptoms she missed her dialysis today.? She started feeling worse and decided to come to the ED for further evaluation.? At baseline she is using 2 L of oxygen and.? In the ER she was diagnosed with right-sided lower lobe pneumonia She is not septic, her oxygen requirement is still at 2 L.? She is currently being treated as community-acquired pneumonia.? She is now describing her chest pain as pressure-like sensation, no nausea or vomiting. Hospital service has been requested to admit her and treat her for pneumonia.? Territory Sales Representative has been consulted as well. Hospital Course Hospital Course Admitted for SOB and fluid overload due to missed dialysis. Treated with zosyn during hospital stay. She was dialyzed Remained afebrile. on baseline 2L NC o2. Feeling better DC home as pt back to baseline DC on augmentin x7 days Physical Exam Narrative: General: Alert oriented x3, patient seen sitting up in bed appearing comfortable.? Normocephalic, atraumatic, EOMI, Cardio: Regular rate rhythm, normal S1-S2, S3 present. Respiratory: CTA b/L GI: Abdomen soft, nontender, nondistended, bowel sounds + Behavior: Appropriate and cooperative Extremities: Trace edema bilateral lower extremities no cyanosis noted Discharge Data Studies Completed and Pending Completed Studies During Hospitalization Category Date Time Status XR chest 1V portable [id number] Stat Exams 11/28/21 13:28 Completed Pending at discharge Category Date Time Status Complete Blood Count w/Auto AM LABS Lab 12/01/21 04:00 Ordered Complete Blood Count w/Auto AM LABS Lab 12/02/21 04:00 Ordered Complete Blood Count w/Auto AM LABS Lab 12/03/21 04:00 Ordered Comprehensive Metabolic Panel AM LABS Lab 12/01/21 04:00 Ordered Comprehensive Metabolic Panel AM LABS Lab 12/02/21 04:00 Ordered Comprehensive Metabolic Panel AM LABS Lab 12/03/21 04:00 Ordered Magnesium AM LABS Lab 12/01/21 04:00 Ordered Magnesium AM LABS Lab 12/02/21 04:00 Ordered Magnesium AM LABS Lab 12/03/21 04:00 Ordered Phosphorus AM LABS Lab 12/01/21 04:00 Ordered Phosphorus AM LABS Lab 12/02/21 04:00 Ordered Phosphorus AM LABS Lab 12/03/21 04:00 Ordered Sputum Culture and Gram Stain Stat Lab 11/28/21 17:34 Uncollected Radiology Impressions Chest X-Ray 11/28/21 13:28 IMPRESSION: 1. Bibasilar opacifications and partial obscuration of the lung bases. Suspect developing pneumonia at the RIGHT lung base. Additional areas of subsegmental atelectasis with small effusions likely. 2. Mild cardiomegaly. Laboratory Results WBC 3.8 10^3/uL (4.0-10.0) L 11/30/21 03:30 Corrected WBC Cancelled 11/29/21 05:25 RBC 3.88 10^6/uL (4.1-5.3) L 11/30/21 03:30 Hgb 11.9 g/dL (11.5-15.3) 11/30/21 03:30 Hct 36.2 % (37.0-47.0) L 11/30/21 03:30 MCV 93.3 fl (81-99) 11/30/21 03:30 MCH 30.7 pg (28.0-34.0) 11/30/21 03:30 MCHC 32.9 g/dL (30.0-36.0) 11/30/21 03:30 RDW 14.8 % (12.1-15.1) 11/30/21 03:30 Plt Count 154 10^3/cmm (130-400) 11/30/21 03:30 MPV 11.6 fL (7.4-10.4) H 11/30/21 03:30 Gran % Cancelled 11/29/21 05:25 Neut % (Auto) 61.7 % 11/30/21 03:30 Lymph % (Auto) 18.4 % 11/30/21 03:30 Walker % (Auto) 10.0 % 11/30/21 03:30 Eos % (Auto) 8.9 % 11/30/21 03:30 Baso % (Auto) 0.5 % 11/30/21 03:30 Neut # (Auto) 2.34 10^3/uL (1.8-7.7) 11/30/21 03:30 Lymph # (Auto) 0.7 10^3/uL (0.8-4.8) L 11/30/21 03:30 Walker # (Auto) 0.4 10^3/uL (0.2-0.9) 11/30/21 03:30 Eos # (Auto) 0.3 10^3/uL (0.0-0.8) 11/30/21 03:30 Baso # (Auto) 0.0 10^3/uL (0.0-0.1) 11/30/21 03:30 Absolute Gran (auto) Cancelled 11/29/21 05:25 Nucleated RBC % (auto) 0 % 11/30/21 03:30 Nucleated RBCs # 0.0 /100WBC 11/30/21 03:30 Sodium 136 mmol/L (136-145) 11/30/21 03:30 Potassium 4.5 mmol/L (3.5-5.1) 11/30/21 03:30 Chloride 96 mmol/L (98-107) L 11/30/21 03:30 Carbon Dioxide 27 mmol/L (22-29) 11/30/21 03:30 Anion Gap 17.5 (5-19) 11/30/21 03:30 BUN 25 mg/dL (6-20) H 11/30/21 03:30 Creatinine 5.4 mg/dL (0.5-0.9) H 11/30/21 03:30 GFR Calculation 8.2 mL/min (90-130) L 11/30/21 03:30 Glucose 82 mg/dL (65-115) 11/30/21 03:30 POC Glucose 132 mg/dL (70-110) H 11/30/21 11:02 Calculated Osmolality 285 mOsm/kg (285-295) 11/30/21 03:30 Calcium 7.2 mg/dL (8.5-10.5) L 11/30/21 03:30 Phosphorus 5.7 mg/dL (2.5-4.5) H 11/29/21 05:25 Magnesium 2.0 mg/dL (1.7-2.3) 11/30/21 03:30 Total Bilirubin 0.4 mg/dL (0.15-1.2) 11/29/21 05:25 AST 23 U/L (0-32) 11/29/21 05:25 ALT 10 U/L (0-33) 11/29/21 05:25 Alkaline Phosphatase 107 IU/L (35-105) H 11/29/21 05:25 Troponin T Baseline 124 ng/L (0-10) H* 11/28/21 15:00 Troponin T 120 Minute 114.5 ng/L (0-10) H 11/28/21 17:12 Delta Troponin T -9.5 ABS# (0-10) L 11/28/21 17:12 Troponin T Hi Sens 6Hr 111.6 ng/L (0-10) H 11/28/21 21:15 Troponin T Hi Sens 6Hr Delta -12.4 ng/L (0-12) L 11/28/21 21:15 NT-Pro-B Natriuret Pep 6254 pg/mL (0-125) H 11/28/21 15:00 Total Protein 5.7 g/dL (6.6-8.7) L 11/29/21 05:25 Albumin 3.5 g/dL (3.5-5.2) 11/29/21 05:25 Globulin 2.2 g/dL (1.3-4.6) 11/29/21 05:25 Nasal Influ A H1 2008 PCR Not detected (NOT DETECT) 11/29/21 15:20 Adenovirus (PCR) Not detected (NOT DETECT) 11/29/21 15:20 C. pneumoniae DNA (PCR) Not detected (NOT DETECT) 11/29/21 15:20 Coronavirus 229E (PCR) Not detected (NOT DETECT) 11/29/21 15:20 Hep Bs Antigen Non-reactive (Nonreactive) 11/29/21 06:16 Hep Bs Antibody 28.7 (11.5-1000) 11/29/21 06:16 Hepatitis C Antibody Non-reactive (Nonreactive) 11/29/21 06:16 Human Metapneumovir PCR Not detected (NOT DETECT) 11/29/21 15:20 Influenza A (H1) PCR Not detected (NOT DETECT) 11/29/21 15:20 Influenza A (H3) PCR Not detected (NOT DETECT) 11/29/21 15:20 Influenza Type A (PCR) Not detected (NOT DETECT) 11/29/21 15:20 Influenza Type B (PCR) Not detected (NOT DETECT) 11/29/21 15:20 M. pneumoniae (PCR) Not detected (NOT DETECT) 11/29/21 15:20 Parainfluenza 1 (PCR) Not detected (NOT DETECT) 11/29/21 15:20 Parainfluenza 2 (PCR) Not detected (NOT DETECT) 11/29/21 15:20 Parainfluenza 3 (PCR) Not detected (NOT DETECT) 11/29/21 15:20 Parainfluenza 4 (PCR) Not detected (NOT DETECT) 11/29/21 15:20 RSV Type A (PCR) Not detected (NOT DETECT) 11/29/21 15:20 RSV Type B (PCR) Not detected (NOT DETECT) 11/29/21 15:20 Entero/Rhino (PCR) Not detected (NOT DETECT) 11/29/21 15:20 SARS-CoV-2 (PCR) Not detected (NOT DETECT) 11/29/21 15:20 Vitals Last Vital Signs Temp 98.1 F 11/30/21 08:00 Pulse 71 11/30/21 09:37 Resp 22 H 11/30/21 09:37 BP 124/61 11/30/21 08:00 Pulse Ox 95 11/30/21 09:37 Discharge Plan Discharge Patient Disposition: Home Condition: Stable Prescriptions: New amoxicillin-pot clavulanate 875-125 mg tablet 1 tab PO BID 7 Days Qty: 14 0RF Continued nitroglycerin 0.4 mg tablet, sublingual 0.4 mg SUBLINGUAL Q5M PRN (Reason: Chest Pain) Qty: 25 6RF furosemide 40 mg tablet 40 mg PO QAM Qty: 30 2RF escitalopram oxalate 20 mg tablet 20 mg PO DAILY 0RF clonazepam 0.25 mg tablet,disintegrating 0.25 mg PO BID PRN (Reason: Anxiety) Qty: 30 0RF oxycodone 5 mg tablet 5 mg PO Q12H 30 Days Qty: 60 0RF cyclobenzaprine 10 mg tablet 10 mg PO TID PRN (Reason: muscle spasm) Qty: 30 2RF pantoprazole 40 mg tablet,delayed release (DR/EC) 40 mg PO DAILY@08 Qty: 90 3RF (DME) pen needle, diabetic [ReliOn Pen [place]] 32 gauge x 5/32 needle See Rx Instructions .ROUTE .MEDSUPPLY Qty: 100 6RF Rx Instructions: use for insulin injections (DME) PROSTHETIC SUPPLIES See Rx Instructions .Route .MEDSUPPLY Qty: 1 0RF Rx Instructions: As directed levothyroxine [Euthyrox] 150 mcg tablet 150 mcg PO QAM Qty: 90 3RF aspirin 81 mg Tablet,Chewable 81 mg PO DAILY@08 0RF Hold Instructions: Resume on 10/24/21. cholecalciferol (vitamin D3) [Vitamin D3] 25 mcg (1,000 unit) Tablet 25 mcg PO DAILY@08 0RF omega 3-myt-mth-fish oil [Fish Oil] 300-1,000 mg Capsule,Delayed Release(Dr/Ec) 1 cap PO BID@08,20 0RF Glucosamine Chondroitin 550-30-1 mg Capsule 1 cap PO DAILY 0RF carvedilol 3.125 mg Tablet 3.125 mg PO BID Qty: 60 0RF isosorbide mononitrate 30 mg tablet extended release 24 hr 30 mg PO DAILY 0RF hydralazine 100 mg tablet 100 mg PO BID 0RF amlodipine 10 mg Tablet 10 mg PO DAILY 0RF ondansetron HCl 8 mg tablet 8 mg PO Q8H PRN (Reason: Nausea And Vomiting) 0RF Dialyvite 100-1 mg tablet 1 tab PO DAILY 0RF insulin glargine [Lantus Solostar U-100 Insulin] 100 unit/mL (3 mL) insulin pen 5 unit SUBCUT BID@08,20 Qty: 15 12RF ranolazine 500 mg Tablet Extended Release 12 Hr 500 mg PO DAILY 30 Days Qty: 30 0RF sevelamer carbonate 800 mg Tablet 1,600 mg PO TID 30 Days Qty: 180 0RF Discharge Orders: Discharge Order (Routine); Ordered 11/30/21 Ordered By: Ewa Bibiana Referrals: Jacob Yadav, [Primary Care Provider] - 4-7 days (PLEASE CALL [phone] ON WEDNESDAY TO SET UP A FOLLOW-UP APPOINTMENT WITH DR YADAV.) Discharge Activity: Resume usual activity and Oxygen as instructed Patient Instructions: Amoxicillin/Clavulanate Potassium (By mouth), Dialysis Diet (DC), Community Acquired Pneumonia (DC), End Stage Kidney Disease (DC), Hemodialysis (DC), Opioid Safety Activity Restrictions/Additional Instructions: Please follow renal dialysis diet Please return to ER if shortness of breath worsens or if you develop any new symptoms. Discharge Attestations Time Spent in Discharge Care*: less than 30 min Status at Discharge: Cognitive status at discharge: cognitively intact, Behavioral status at discharge: cooperative, Quality Metrics Clinical Quality Measures [ No reported AMI, CVA or VTE this stay] Coding Level of Care Code Acute Chg FW DC note Diagnoses ESRD on hemodialysis N18.6; Z99.2
[2021-11-30] MEDS: calcium acetate 667 mg Capsule PO (13:12)
--- NOTE | 2021-11-30 16:28 | PC.NURSE ---
discharge instructions given and explained. pt verb understanding of instructions.discharged via w/c to exit at 1430.pt's to drive pt home
== END 2021-11-30 14:30 | disposition home or self-care (01) ==
LOC: ER 17:03 → MEDSURG 17:10
PROVIDERS: Internal Medicine Nephrology; Admitting Provider Internal Medicine; Emergency Provider Emergency Medicine; PCP Family Medicine; Visit Provider Internal Medicine
DX: E11.22 Type 2 diabetes mellitus with diabetic chronic kidney disease (principal); I13.2 Hypertensive heart and chronic kidney disease with heart failure and with stage 5 chronic kidney disease, or end stage renal disease; N18.6 End stage renal disease; Z99.2 Dependence on renal dialysis; D63.1 Anemia in chronic kidney disease; R07.81 Pleurodynia; J18.9 Pneumonia, unspecified organism; G54.6 Phantom limb syndrome with pain; F41.9 Anxiety disorder, unspecified; F32.A Depression, unspecified; J96.20 Acute and chronic respiratory failure, unspecified whether with hypoxia or hypercapnia; Z99.81 Dependence on supplemental oxygen; I25.10 Atherosclerotic heart disease of native coronary artery without angina pectoris; Z79.4 Long term (current) use of insulin; Z79.82 Long term (current) use of aspirin; I50.32 Chronic diastolic (congestive) heart failure; G47.33 Obstructive sleep apnea (adult) (pediatric); Z86.73 Personal history of transient ischemic attack (TIA), and cerebral infarction without residual deficits; E55.9 Vitamin D deficiency, unspecified; Z95.5 Presence of coronary angioplasty implant and graft
CPT/HCPCS: 36415; 36416; 71045; 80048; 80053; 82962; 83735; 83880; 84100; 84484; 85025; 86403; 86706; 86803; 87340; 87449; 87486; 87581; 87633; 87641; 93005; 94640; 94664; 96365; 96367; 96372; 99285; G0378; J0692; J1644; J2543; J3370; J7050

== ENCOUNTER 2021-12-15 16:24 | Emergency (ER) | payer MEDICARE, MEDICAID, SELFPAY ==
--- NOTE | 2021-12-15 17:20 | XRR_ITS ---
PROCEDURE INFORMATION: Exam: XR Chest Exam date and time: 12/15/2021 5:27 PM Age: 56 years old Clinical indication: Cough; Patient HX: Chest pain; Additional info: Dyspnea/cough TECHNIQUE: Imaging protocol: Radiologic exam of the chest. Views: 1 view. COMPARISON: CR XR chest 1V portable [id number] 11/28/2021 1:40 PM FINDINGS: Lungs: Patchy airspace opacities in the left lung base. Linear opacities in the right lung base. Pleural spaces: Small pleural effusions. No pneumothorax. Heart/Mediastinum: Mild cardiomegaly. Bones/joints: Unremarkable. XR/XR chest 1V portable [id number] IMPRESSION: Findings suggestive of mild congestive heart failure. Pneumonia in the left lung base is not excluded.
[2021-12-15 17:21] VITALS: BP 177/82; PULSE 77; RESP 20; O2SAT 94
[2021-12-15 17:30] VITALS: BP 175/86; PULSE 77; RESP 16; O2SAT 96
--- NOTE | 2021-12-15 18:19 | W.ED.CHESTPA ---
Documented by User: Karan Daniels DO 12/25/21 07:12 HPI - Chest Pain General: Chief Complaint: Chest Pain Stated Complaint: CHEST PAIN Time Seen by Provider: 12/15/21 17:19 Source: patient Mode of arrival: EMS History of Present Illness: 56-year-old female end-stage renal disease diabetes previous right below the knee amputation. She has known history of coronary disease she was at dialysis today and about 1 hour into her run began planing of severe chest pain and shortness of breath. Earlier this year she had a Lexiscan sestamibi stress test that was positive she tells me that she went to the [facility] had no significant findings at that time. I could not find the [facility] report on initial review of the record. She is having minimal discomfort now. MD complaint: chest pain Pertinent past history: coronary artery disease and other (End-stage renal disease) Onset: during rest Pain location: left chest Pain radiation: none Quality: tightness, aching and heaviness Relieving factors: nothing Exacerbating factors: nothing Associated symptoms: Reports dyspnea, leg edema and nausea; Deny abdominal pain, diaphoresis, fever(s), palpitations, sense of impending doom, syncope or vomiting Review of Systems Const: Denies: fever(s) or diaphoresis ENMT: Denies: throat pain, ear or mastoid pain, nasal discharge or nasal congestion Card: Denies: chest pain, palpitations or syncope Resp: Reports: dyspnea; Denies: productive cough GI: Reports: nausea; Denies: abdominal pain or vomiting : Denies: flank pain, difficulty voiding, dysuria, urinary frequency or urinary urgency Skin/Breast: Denies: rash or pruritus PFS ED PFSH: Medical History Adjustment disorder with mixed disturbance of emotions and conduct Anemia in chronic kidney disease Anxiety BPPV (benign paroxysmal positional vertigo) CAD (coronary artery disease) Carotid stenosis 04/2020: Right < 50%, Left near 70% Chronic diastolic CHF (congestive heart failure) 12/2020 EF 55%, grade II/IV diastolic dysfunction Chronic kidney disease Chronic left sacroiliac joint pain CKD (chronic kidney disease) stage 5, GFR less than 15 ml/min Claustrophobia Compressive atelectasis Congestive heart failure Diabetes mellitus Diabetes mellitus, with long-term current use of insulin Diverticulitis Elevated troponin End stage renal disease ESBL (extended spectrum beta-lactamase) producing bacteria infection ESRD (end stage renal disease) on dialysis DAILY (generalized anxiety disorder) Gastroparesis GERD (gastroesophageal reflux disease) Gram-negative bacteremia Hemodialysis catheter dysfunction HTN (hypertension) Hyperlipidemia Hypocalcemia due to chronic kidney disease Hypothyroidism Hypoxemia Lumbar back pain Major depression, recurrent Mixed dyslipidemia DOROTEO on CPAP PAD (peripheral artery disease) Partial nontraumatic amputation of left foot (~06/2019) Peripheral vascular disease Peritonitis associated with peritoneal dialysis Phantom pain Pneumonia due to COVID-19 virus (~12/2020) Positive cardiac stress test Sleep apnea Suicidal ideation TIA (transient ischemic attack) Vitamin D deficiency Surgical History AV (arteriovenous fistula) (~10/2020) H/O hysterectomy with oophorectomy History of appendectomy History of cataract surgery History of heart artery stent PCI to LAD, done in [place], [place] 10/2018 ENRIQUE to mid LAD at [facility] 04/2020 History of hysterectomy History of left heart catheterization 04/2020 Findings: 1. There is severe coronary artery disease. 2. FFR of mid LAD was 0.76. 3. Severe OM 2 stenosis. However this is a small sized distal vessel. 4. Mid Left Anterior Descending Coronary Artery was treated with Balloon and Drug Eluting Stent History of right below knee amputation Peritoneal dialysis catheter in place Removed due to recurrent peritonitis S/P cholecystectomy S/P PICC central line placement (~2019) Status post amputation of toe Family History Denies family history of CAD (coronary artery disease) Clotting disorder Dementia Bleeding disorder Social History Smoking and tobacco status: never smoked Alcohol intake: never Household members: spouse and family History of recent travel: No Physical Exam Const: COMMON NORMALS: no acute distress GENERAL APPEARANCE: cooperative and comfortable ORIENTATION/CONSCIOUSNESS: Yes awake, Yes oriented to person, Yes oriented to place and Yes oriented to time HENMT: COMMON NORMALS: normocephalic and atraumatic HEAD & SCALP: normocephalic and atraumatic Neck/C-Spine: COMMON NORMALS: no JVD Resp: COMMON NORMALS: normal respiratory effort, No retractions, No use of accessory muscles and clear to auscultation bilaterally AUSCULTATION: clear to auscultation bilaterally Cardio: COMMON NORMALS: no JVD, regular rate, regular rhythm and No murmurs present (Cardio) RATE: regular rate RHYTHM: regular rhythm GI: COMMON NORMALS: Soft to palpation and No hepatosplenomegaly present AUSCULTATION: Yes normoactive bowel sounds PALPATION: Yes Soft to palpation, No Tenderness to palpation present (GI), No Guarding due to palpation present (GI) and Yes No hepatosplenomegaly present Extremity: COMMON NORMALS: normal to inspection, capillary refill normal and no calf tenderness GENERAL: Yes edema (1-2+ lower extremities) Neuro: SENSORIUM/ORIENTATION: Yes oriented to person, Yes oriented to place and Yes oriented to time Skin: COMMON NORMALS: no rashes or lesions noted GENERAL SKIN EXAM: no rashes or lesions noted Course Vital Signs: Vital signs: Vital Signs Pulse Rate 75 12/15/21 22:50 Respiratory Rate 18 12/15/21 22:50 Blood Pressure 168/92 12/15/21 22:50 Pulse Oximetry 97 12/15/21 22:50 MDM - Chest Pain Medical Decision Making Care signed out to Dr. Jeronimo at change of shift. See final notes for diagnosis and disposition. Patient presents for chest pains atypical in nature her repeat troponin here is normal patient is well-appearing here is stable for discharge she is to follow-up with PCP and return if worsening she understands agrees to plan. Medical Records I reviewed the patient's medical records. Lab Data I reviewed the patient's lab results. : 12/15/21 17:59 12/15/21 17:59 Radiology Impressions Chest X-Ray 12/15/21 17:20 IMPRESSION: Findings suggestive of mild congestive heart failure. Pneumonia in the left lung base is not excluded. Laboratory Results WBC 5.1 10^3/uL (4.0-10.0) 12/15/21 17:59 RBC 4.02 10^6/uL (4.1-5.3) L 12/15/21 17:59 Hgb 12.5 g/dL (11.5-15.3) 12/15/21 17:59 Hct 39.6 % (37.0-47.0) 12/15/21 17:59 MCV 98.5 fl (81-99) 12/15/21 17:59 MCH 31.1 pg (28.0-34.0) 12/15/21 17:59 MCHC 31.6 g/dL (30.0-36.0) 12/15/21 17:59 RDW 14.7 % (12.1-15.1) 12/15/21 17:59 Plt Count 158 10^3/cmm (130-400) 12/15/21 17:59 MPV 11.2 fL (7.4-10.4) H 12/15/21 17:59 Neut % (Auto) 73.8 % 12/15/21 17:59 Lymph % (Auto) 13.3 % 12/15/21 17:59 Ritchie % (Auto) 8.9 % 12/15/21 17:59 Eos % (Auto) 3.0 % 12/15/21 17:59 Baso % (Auto) 0.6 % 12/15/21 17:59 Neut # (Auto) 3.73 10^3/uL (1.8-7.7) 12/15/21 17:59 Lymph # (Auto) 0.7 10^3/uL (0.8-4.8) L 12/15/21 17:59 Ritchie # (Auto) 0.5 10^3/uL (0.2-0.9) 12/15/21 17:59 Eos # (Auto) 0.2 10^3/uL (0.0-0.8) 12/15/21 17:59 Baso # (Auto) 0.0 10^3/uL (0.0-0.1) 12/15/21 17:59 Nucleated RBC % (auto) 0 % 12/15/21 17:59 Nucleated RBCs # 0.0 /100WBC 12/15/21 17:59 Sodium 137 mmol/L (136-145) 12/15/21 17:59 Potassium 5.2 mmol/L (3.5-5.1) H 12/15/21 17:59 Chloride 98 mmol/L (98-107) 12/15/21 17:59 Carbon Dioxide 23 mmol/L (22-29) 12/15/21 17:59 Anion Gap 21.2 (5-19) H 12/15/21 17:59 BUN 33 mg/dL (6-20) H 12/15/21 17:59 Creatinine 6.0 mg/dL (0.5-0.9) H* 12/15/21 17:59 GFR Calculation 7.2 mL/min (90-130) L 12/15/21 17:59 Glucose 92 mg/dL (65-115) 12/15/21 17:59 Calculated Osmolality 291 mOsm/kg (285-295) 12/15/21 17:59 Calcium 7.5 mg/dL (8.5-10.5) L 12/15/21 17:59 Total Bilirubin 0.6 mg/dL (0.15-1.2) 12/15/21 17:59 AST 16 U/L (0-32) 12/15/21 17:59 ALT 11 U/L (0-33) 12/15/21 17:59 Alkaline Phosphatase 130 IU/L (35-105) H 12/15/21 17:59 Troponin T Baseline 120 ng/L (0-10) H* 12/15/21 17:59 Troponin T 120 Minute 117.9 ng/L (0-10) H 12/15/21 20:30 Delta Troponin T -2.1 ABS# (0-10) L 12/15/21 20:30 Total Protein 6.5 g/dL (6.6-8.7) L 12/15/21 17:59 Albumin 3.8 g/dL (3.5-5.2) 12/15/21 17:59 Globulin 2.7 g/dL (1.3-4.6) 12/15/21 17:59 Discharge Plan Discharge Patient Disposition: Home Clinical Impression: Chest pain Condition: Stable Prescriptions: No Action nitroglycerin 0.4 mg tablet, sublingual 0.4 mg SUBLINGUAL Q5M PRN (Reason: Chest Pain) Qty: 25 6RF furosemide 40 mg tablet 40 mg PO QAM Qty: 30 2RF escitalopram oxalate 20 mg tablet 20 mg PO DAILY 0RF oxycodone 5 mg tablet 5 mg PO Q12H 30 Days Qty: 60 0RF cyclobenzaprine 10 mg tablet 10 mg PO TID PRN (Reason: muscle spasm) Qty: 30 2RF pantoprazole 40 mg tablet,delayed release (DR/EC) 40 mg PO DAILY@08 Qty: 90 3RF (DME) pen needle, diabetic [ReliOn Pen [place]] 32 gauge x 5/32 needle See Rx Instructions .ROUTE .MEDSUPPLY Qty: 100 6RF Rx Instructions: use for insulin injections (DME) PROSTHETIC SUPPLIES See Rx Instructions .Route .MEDSUPPLY Qty: 1 0RF Rx Instructions: As directed levothyroxine [Euthyrox] 150 mcg tablet 150 mcg PO QAM Qty: 90 3RF amlodipine 10 mg tablet 10 mg PO DAILY Qty: 90 1RF atorvastatin 40 mg tablet 40 mg PO DAILY@20 Qty: 90 3RF clonazepam 0.25 mg tablet,disintegrating 0.25 mg PO BID PRN (Reason: Anxiety) Qty: 30 0RF aspirin 81 mg Tablet,Chewable 81 mg PO DAILY@08 0RF Hold Instructions: Resume on 10/24/21. cholecalciferol (vitamin D3) [Vitamin D3] 25 mcg (1,000 unit) Tablet 25 mcg PO DAILY@08 0RF omega 9-nha-efl-fish oil [Fish Oil] 300-1,000 mg Capsule,Delayed Release(Dr/Ec) 1 cap PO BID@08,20 0RF Glucosamine Chondroitin 550-30-1 mg Capsule 1 cap PO DAILY 0RF carvedilol 3.125 mg Tablet 3.125 mg PO BID Qty: 60 0RF hydralazine 100 mg tablet 100 mg PO BID 0RF isosorbide mononitrate 60 mg tablet extended release 24 hr 60 mg PO DAILY 0RF ketorolac 0.5 % drops 1 drp ophthalmic (eye) QID 0RF prednisolone acetate 1 % drops,suspension 1 drp ophthalmic (eye) QID 0RF ondansetron HCl 8 mg tablet 8 mg PO Q8H PRN (Reason: Nausea And Vomiting) 0RF Dialyvite 100-1 mg tablet 1 tab PO DAILY 0RF insulin glargine [Lantus Solostar U-100 Insulin] 100 unit/mL (3 mL) insulin pen 5 unit SUBCUT BID@08,20 Qty: 15 12RF Discharge Orders: Discharge ED (Routine); Ordered 12/15/21 Ordered By: Carlos A Jeronimo Referrals: Jacob Sharp, [Primary Care Provider] - Discharge Diet: Advance as tolerated Discharge Activity: Resume usual activity Patient Instructions: Chest Pain (ED) Coding Level of Care Code ED Industrial Therapist for Chg Fwd Documented by User: Carlos A Jeronimo MD 12/15/21 21:24 HPI - Chest Pain General: Chief Complaint: Chest Pain Stated Complaint: CHEST PAIN Time Seen by Provider: 12/15/21 17:19 PFSH ED PFSH: Medical History Adjustment disorder with mixed disturbance of emotions and conduct Anemia in chronic kidney disease Anxiety BPPV (benign paroxysmal positional vertigo) CAD (coronary artery disease) Carotid stenosis 04/2020: Right < 50%, Left near 70% Chronic diastolic CHF (congestive heart failure) 12/2020 EF 55%, grade II/IV diastolic dysfunction Chronic kidney disease Chronic left sacroiliac joint pain CKD (chronic kidney disease) stage 5, GFR less than 15 ml/min Claustrophobia Compressive atelectasis Congestive heart failure Diabetes mellitus Diabetes mellitus, with long-term current use of insulin Diverticulitis Elevated troponin End stage renal disease ESBL (extended spectrum beta-lactamase) producing bacteria infection ESRD (end stage renal disease) on dialysis DAILY (generalized anxiety disorder) Gastroparesis GERD (gastroesophageal reflux disease) Gram-negative bacteremia Hemodialysis catheter dysfunction HTN (hypertension) Hyperlipidemia Hypocalcemia due to chronic kidney disease Hypothyroidism Hypoxemia Lumbar back pain Major depression, recurrent Mixed dyslipidemia DOROTEO on CPAP PAD (peripheral artery disease) Partial nontraumatic amputation of left foot (~06/2019) Peripheral vascular disease Peritonitis associated with peritoneal dialysis Phantom pain Pneumonia due to COVID-19 virus (~12/2020) Positive cardiac stress test Sleep apnea Suicidal ideation TIA (transient ischemic attack) Vitamin D deficiency Surgical History AV (arteriovenous fistula) (~10/2020) H/O hysterectomy with oophorectomy History of appendectomy History of cataract surgery History of heart artery stent PCI to LAD, done in [place], [place] 10/2018 ENRIQUE to mid LAD at [facility] 04/2020 History of hysterectomy History of left heart catheterization 04/2020 Findings: 1. There is severe coronary artery disease. 2. FFR of mid LAD was 0.76. 3. Severe OM 2 stenosis. However this is a small sized distal vessel. 4. Mid Left Anterior Descending Coronary Artery was treated with Balloon and Drug Eluting Stent History of right below knee amputation Peritoneal dialysis catheter in place Removed due to recurrent peritonitis S/P cholecystectomy S/P PICC central line placement (~2019) Status post amputation of toe Family History Denies family history of CAD (coronary artery disease) Clotting disorder Dementia Bleeding disorder Social History Smoking and tobacco status: never smoked Alcohol intake: never Household members: spouse and family History of recent travel: No Course Vital Signs: Vital signs: Vital Signs Pulse Rate 75 12/15/21 22:50 Respiratory Rate 18 12/15/21 22:50 Blood Pressure 168/92 12/15/21 22:50 Pulse Oximetry 97 12/15/21 22:50 MDM - Chest Pain Medical Decision Making Patient presents for chest pains atypical in nature her repeat troponin here is normal patient is well-appearing here is stable for discharge she is to follow-up with PCP and return if worsening she understands agrees to plan. Lab Data : 12/15/21 17:59 12/15/21 17:59 Radiology Impressions Chest X-Ray 12/15/21 17:20 IMPRESSION: Findings suggestive of mild congestive heart failure. Pneumonia in the left lung base is not excluded. Laboratory Results WBC 5.1 10^3/uL (4.0-10.0) 12/15/21 17:59 RBC 4.02 10^6/uL (4.1-5.3) L 12/15/21 17:59 Hgb 12.5 g/dL (11.5-15.3) 12/15/21 17:59 Hct 39.6 % (37.0-47.0) 12/15/21 17:59 MCV 98.5 fl (81-99) 12/15/21 17:59 MCH 31.1 pg (28.0-34.0) 12/15/21 17:59 MCHC 31.6 g/dL (30.0-36.0) 12/15/21 17:59 RDW 14.7 % (12.1-15.1) 12/15/21 17:59 Plt Count 158 10^3/cmm (130-400) 12/15/21 17:59 MPV 11.2 fL (7.4-10.4) H 12/15/21 17:59 Neut % (Auto) 73.8 % 12/15/21 17:59 Lymph % (Auto) 13.3 % 12/15/21 17:59 Ritchie % (Auto) 8.9 % 12/15/21 17:59 Eos % (Auto) 3.0 % 12/15/21 17:59 Baso % (Auto) 0.6 % 12/15/21 17:59 Neut # (Auto) 3.73 10^3/uL (1.8-7.7) 12/15/21 17:59 Lymph # (Auto) 0.7 10^3/uL (0.8-4.8) L 12/15/21 17:59 Ritchie # (Auto) 0.5 10^3/uL (0.2-0.9) 12/15/21 17:59 Eos # (Auto) 0.2 10^3/uL (0.0-0.8) 12/15/21 17:59 Baso # (Auto) 0.0 10^3/uL (0.0-0.1) 12/15/21 17:59 Nucleated RBC % (auto) 0 % 12/15/21 17:59 Nucleated RBCs # 0.0 /100WBC 12/15/21 17:59 Sodium 137 mmol/L (136-145) 12/15/21 17:59 Potassium 5.2 mmol/L (3.5-5.1) H 12/15/21 17:59 Chloride 98 mmol/L (98-107) 12/15/21 17:59 Carbon Dioxide 23 mmol/L (22-29) 12/15/21 17:59 Anion Gap 21.2 (5-19) H 12/15/21 17:59 BUN 33 mg/dL (6-20) H 12/15/21 17:59 Creatinine 6.0 mg/dL (0.5-0.9) H* 12/15/21 17:59 GFR Calculation 7.2 mL/min (90-130) L 12/15/21 17:59 Glucose 92 mg/dL (65-115) 12/15/21 17:59 Calculated Osmolality 291 mOsm/kg (285-295) 12/15/21 17:59 Calcium 7.5 mg/dL (8.5-10.5) L 12/15/21 17:59 Total Bilirubin 0.6 mg/dL (0.15-1.2) 12/15/21 17:59 AST 16 U/L (0-32) 12/15/21 17:59 ALT 11 U/L (0-33) 12/15/21 17:59 Alkaline Phosphatase 130 IU/L (35-105) H 12/15/21 17:59 Troponin T Baseline 120 ng/L (0-10) H* 12/15/21 17:59 Troponin T 120 Minute 117.9 ng/L (0-10) H 12/15/21 20:30 Delta Troponin T -2.1 ABS# (0-10) L 12/15/21 20:30 Total Protein 6.5 g/dL (6.6-8.7) L 12/15/21 17:59 Albumin 3.8 g/dL (3.5-5.2) 12/15/21 17:59 Globulin 2.7 g/dL (1.3-4.6) 12/15/21 17:59 Discharge Plan Discharge Patient Disposition: Home Clinical Impression: Chest pain Condition: Stable Prescriptions: No Action nitroglycerin 0.4 mg tablet, sublingual 0.4 mg SUBLINGUAL Q5M PRN (Reason: Chest Pain) Qty: 25 6RF furosemide 40 mg tablet 40 mg PO QAM Qty: 30 2RF escitalopram oxalate 20 mg tablet 20 mg PO DAILY 0RF oxycodone 5 mg tablet 5 mg PO Q12H 30 Days Qty: 60 0RF cyclobenzaprine 10 mg tablet 10 mg PO TID PRN (Reason: muscle spasm) Qty: 30 2RF pantoprazole 40 mg tablet,delayed release (DR/EC) 40 mg PO DAILY@08 Qty: 90 3RF (DME) pen needle, diabetic [ReliOn Pen [place]] 32 gauge x 5/32 needle See Rx Instructions .ROUTE .MEDSUPPLY Qty: 100 6RF Rx Instructions: use for insulin injections (DME) PROSTHETIC SUPPLIES See Rx Instructions .Route .MEDSUPPLY Qty: 1 0RF Rx Instructions: As directed levothyroxine [Euthyrox] 150 mcg tablet 150 mcg PO QAM Qty: 90 3RF amlodipine 10 mg tablet 10 mg PO DAILY Qty: 90 1RF atorvastatin 40 mg tablet 40 mg PO DAILY@20 Qty: 90 3RF clonazepam 0.25 mg tablet,disintegrating 0.25 mg PO BID PRN (Reason: Anxiety) Qty: 30 0RF aspirin 81 mg Tablet,Chewable 81 mg PO DAILY@08 0RF Hold Instructions: Resume on 10/24/21. cholecalciferol (vitamin D3) [Vitamin D3] 25 mcg (1,000 unit) Tablet 25 mcg PO DAILY@08 0RF omega 2-oio-jdu-fish oil [Fish Oil] 300-1,000 mg Capsule,Delayed Release(Dr/Ec) 1 cap PO BID@08,20 0RF Glucosamine Chondroitin 550-30-1 mg Capsule 1 cap PO DAILY 0RF carvedilol 3.125 mg Tablet 3.125 mg PO BID Qty: 60 0RF hydralazine 100 mg tablet 100 mg PO BID 0RF isosorbide mononitrate 60 mg tablet extended release 24 hr 60 mg PO DAILY 0RF ketorolac 0.5 % drops 1 drp ophthalmic (eye) QID 0RF prednisolone acetate 1 % drops,suspension 1 drp ophthalmic (eye) QID 0RF ondansetron HCl 8 mg tablet 8 mg PO Q8H PRN (Reason: Nausea And Vomiting) 0RF Dialyvite 100-1 mg tablet 1 tab PO DAILY 0RF insulin glargine [Lantus Solostar U-100 Insulin] 100 unit/mL (3 mL) insulin pen 5 unit SUBCUT BID@08,20 Qty: 15 12RF Discharge Orders: Discharge ED (Routine); Ordered 12/15/21 Ordered By: Carlos A Jeronimo Referrals: Jacob Sharp DO [Primary Care Provider] - Discharge Diet: Advance as tolerated Discharge Activity: Resume usual activity Patient Instructions: Chest Pain (ED) Coding Level of Care Code ED Industrial Therapist for Chg Sampson
[2021-12-15 18:41] LABS: Basophils % 0.6 %; Eosinophils # 0.2 10^3/uL (0.0-0.8); Hematocrit 39.6 % (37.0-47.0); Hemoglobin 12.5 g/dL (11.5-15.3); Lymphocytes # 0.7 10^3/uL (0.8-4.8); Lymphocytes % 13.3 %; Mean Corpuscular HGB Conc 31.6 g/dL (30.0-36.0); Mean Corpuscular Hemoglobin 31.1 pg (28.0-34.0); Mean Corpuscular Volume 98.5 fl (81-99); Mean Platelet Volume 11.2 fL (7.4-10.4); Monocytes # 0.5 10^3/uL (0.2-0.9); Monocytes % 8.9 %; Neutrophils # 3.73 10^3/uL (1.8-7.7); Neutrophils % 73.8 %; Nucleated Red Blood Cells % 0 %; Platelet Count 158 10^3/cmm (130-400); Red Blood Count 4.02 10^6/uL (4.1-5.3); Red Cell Distribution Width 14.7 % (12.1-15.1); White Blood Count 5.1 10^3/uL (4.0-10.0)
--- NOTE | 2021-12-15 19:02 | PC.NURSE ---
PT PLACED ON CONTINUOUS NIBP, SPO2, AND CM
--- NOTE | 2021-12-15 19:04 | PC.PHAR ---
MEDICATIONS VERIFIED USING EXTERNAL MED LIST AND CALLING [facility]JESH PT STATES SHE FILLS ALL HER RX WITH. UNABLE TO VERIFY MEDICATIONS ON PT LIST FROM DIALYSIS.
[2021-12-15 19:06] VITALS: BP 164/76; PULSE 76; O2SAT 95
[2021-12-15 19:12] LABS: Alanine Aminotransferase 11 U/L (0-33); Albumin Level 3.8 g/dL (3.5-5.2); Alkaline Phosphatase 130 IU/L (35-105); Anion Gap 21.2 (5-19); Aspartate Amino Transferase 16 U/L (0-32); Blood Urea Nitrogen 33 mg/dL (6-20); Calcium 7.5 mg/dL (8.5-10.5); Carbon Dioxide 23 mmol/L (22-29); Chloride 98 mmol/L (98-107); Globulin 2.7 g/dL (1.3-4.6); Glomerular Filtration Rate 7.2 mL/min (90-130); Glucose 92 mg/dL (65-115); Osmolality Calculated 291 mOsm/kg (285-295); Potassium 5.2 mmol/L (3.5-5.1); Sodium 137 mmol/L (136-145); Total Bilirubin 0.6 mg/dL (0.15-1.2); Total Protein 6.5 g/dL (6.6-8.7)
[2021-12-15 20:08] LABS: Troponin(5th) Baseline 120 ng/L (0-10)
[2021-12-15 21:13] LABS: Troponin 5 2HR Delta -2.1 ABS# (0-10)
[2021-12-15 21:14] LABS: Troponin 5 2HR 117.9 ng/L (0-10)
[2021-12-15 22:50] VITALS: BP 168/92; PULSE 75; RESP 18; O2SAT 97
--- NOTE | 2021-12-15 23:20 | ECG_ITS ---
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 Measurements Intervals [place] Rate: 76 P: -17 [place]: 199 QRS: -53 QRSD: 98 T: 74 QT: 396 QTc: 447 Interpretive Statements SINUS RHYTHM LEFT AXIS DEVIATION [QRS AXIS < -30] POSSIBLE ANTERIOR MYOCARDIAL INFARCTION , OF INDETERMINATE AGE [30 ms Q WAVE IN V3/V4, OR R < 0.2 mV IN V4] Compared to ECG 11/28/2021 20:28:34 No significant changes Electronically Signed On 12-15-2021 18:22:56 CDT by Dong Pitt M.D. [email or web address]
== END 2021-12-15 22:52 | disposition home or self-care (01) ==
PROVIDERS: Family Medicine; Emergency Provider Emergency Medicine; PCP Family Medicine
DX: R07.9 Chest pain, unspecified (principal); Z79.82 Long term (current) use of aspirin; I13.2 Hypertensive heart and chronic kidney disease with heart failure and with stage 5 chronic kidney disease, or end stage renal disease; E11.22 Type 2 diabetes mellitus with diabetic chronic kidney disease; N18.6 End stage renal disease; I50.32 Chronic diastolic (congestive) heart failure; Z99.2 Dependence on renal dialysis; Z79.4 Long term (current) use of insulin; I25.10 Atherosclerotic heart disease of native coronary artery without angina pectoris; E78.5 Hyperlipidemia, unspecified
CPT/HCPCS: 71045; 80053; 84484; 85025; 93005; 99285

== ENCOUNTER 2022-01-01 13:10 | Observation (INO) | payer MEDICARE, MEDICAID, SELFPAY ==
[2022-01-01] VITALS (14 sets, daily range): BP systolic 163–178; BP diastolic 75–110; PULSE 72–79; RESP 16–23; TEMP 36.4–36.7; O2SAT 86–99; BMI 31.1
--- NOTE | 2022-01-01 13:29 | XR_ITS ---
WS: [id number] Exam: XR chest 1V portable [id number] Date/Time of Exam: 01/01/2022 1:29 PM Reason For Exam: dyspnea/cough Comparison 12/15/2021. There is cardiac enlargement with pulmonary vascular congestion suggesting acute CHF. There are infil trates in the mid and lower lung zones bilaterally. Left pleural effusion is noted. There may be a ri ght pleural effusion also. No pneumothorax. The mediastinum is not widened. Bony structures are intac t. XR/XR chest 1V portable [id number] IMPRESSION: 1. Cardiac enlargement with signs of congestive heart failure and pleural effus ion. 2. Extensive infiltrates in the mid and lower lung zones bilaterally. Superimpo sed pneumonia could have this appearance.
--- NOTE | 2022-01-01 13:30 | ED_ITS ---
HPI - SOB/Dyspnea General: Chief Complaint: Shortness of Breath/Dyspnea Stated Complaint: SOB Time Seen by Provider: 01/01/22 13:14 Source: patient Mode of arrival: ambulatory Limitations: no limitations History of Present Illness: HPI Narrative: 56-year-old female known history of end-stage renal disease recently hospitalized for pneumonia. She has been on 2 to 3 L by nasal cannula baseline for to maintain oxygen sats since diagnosis pneumonia. She missed her dialysis yesterday and today is having increased oxygen needs. She initially arrived she was on 6 L we titrated down to 200 she is maintaining sats in the mid 90s. She denies cough or fever. MD elicited complaint: shortness of breath Pertinent past history: congestive heart failure Onset (ago): hour(s) Context: other (Missed dialysis) Timing: constant Severity: moderate Exacerbating factors: lying flat, exertion and coughing Relieving factors: oxygen and upright position Known history of: congestive heart failure Associated symptoms: Reports chest congestion, chest pain, extremity pain, fever(s) and orthopnea; Deny abdominal pain, cough, diaphoresis, dizziness, hemoptysis, lightheadedness, myalgias, nausea, palpitations, paresthesias, polydipsia, polyuria, rash, sense of impending doom, syncope or vomiting Treatment prior to arrival: none Review of Systems Const: Reports: fever(s); Denies: diaphoresis ENMT: Denies: throat pain, ear or mastoid pain, nasal discharge or nasal congestion Card: Reports: chest pain and orthopnea; Denies: palpitations, lightheadedness or syncope Resp: Reports: chest congestion; Denies: hemoptysis GI: Denies: abdominal pain, nausea or vomiting : Denies: flank pain, difficulty voiding, dysuria, urinary frequency or urinary urgency Musc: Reports: extremity pain Skin/Breast: Denies: rash or pruritus Neuro: Denies: dizziness Endo: Denies: polyuria or polydipsia PFSH ED PFSH: Medical History Acute dyspnea Acute hyperkalemia Adjustment disorder with mixed disturbance of emotions and conduct Anemia in chronic kidney disease Anxiety Anxiety and depression BPPV (benign paroxysmal positional vertigo) CAD (coronary artery disease) Carotid stenosis 04/2020: Right < 50%, Left near 70% CHF exacerbation Chronic diastolic CHF (congestive heart failure) 12/2020 EF 55%, grade II/IV diastolic dysfunction Chronic kidney disease Chronic left sacroiliac joint pain CKD (chronic kidney disease) stage 5, GFR less than 15 ml/min Claustrophobia Compressive atelectasis Congestive heart failure Diabetes mellitus Diabetes mellitus, with long-term current use of insulin Diverticulitis Elevated troponin End stage renal disease End-stage renal disease (ESRD) ESBL (extended spectrum beta-lactamase) producing bacteria infection ESRD (end stage renal disease) on dialysis ESRD on hemodialysis DAILY (generalized anxiety disorder) Gastroparesis GERD (gastroesophageal reflux disease) Gram-negative bacteremia Hemodialysis catheter dysfunction HTN (hypertension) Hyperlipidemia Hypocalcemia due to chronic kidney disease Hypothyroidism Hypoxemia Light headedness Lumbar back pain Major depression, recurrent Mixed dyslipidemia DOROTEO on CPAP PAD (peripheral artery disease) Partial nontraumatic amputation of left foot (~06/2019) Peripheral vascular disease Peritonitis associated with peritoneal dialysis Phantom pain Pneumonia due to COVID-19 virus (~12/2020) Positive cardiac stress test Sleep apnea Suicidal ideation TIA (transient ischemic attack) Vitamin D deficiency Surgical History AV (arteriovenous fistula) (~10/2020) H/O hysterectomy with oophorectomy History of appendectomy History of cataract surgery History of heart artery stent PCI to LAD, done in [place], [place] 10/2018 ENRIQUE to mid LAD at [facility] 04/2020 History of hysterectomy History of left heart catheterization 04/2020 Findings: 1. There is severe coronary artery disease. 2. FFR of mid LAD was 0.76. 3. Severe OM 2 stenosis. However this is a small sized distal vessel. 4. Mid Left Anterior Descending Coronary Artery was treated with Balloon and Drug Eluting Stent History of right below knee amputation Peritoneal dialysis catheter in place Removed due to recurrent peritonitis S/P cholecystectomy S/P hemodialysis catheter insertion S/P PICC central line placement (~2019) Status post amputation of toe Family History Denies family history of CAD (coronary artery disease) Clotting disorder Dementia Bleeding disorder Social History Smoking and tobacco status: never smoked Alcohol intake: never Household members: spouse and family History of recent travel: No Physical Exam Const: COMMON NORMALS: no acute distress GENERAL APPEARANCE: cooperative and comfortable ORIENTATION/CONSCIOUSNESS: Yes awake, Yes oriented to person, Yes oriented to place and Yes oriented to time HENMT: COMMON NORMALS: normocephalic, atraumatic and hearing grossly normal bilaterally HEAD & SCALP: normocephalic and atraumatic Resp: COMMON NORMALS: normal respiratory effort, No retractions and No use of accessory muscles AUSCULTATION: rales (At the bases bilaterally) Cardio: COMMON NORMALS: regular rate, regular rhythm and No murmurs present (Cardio) RATE: regular rate RHYTHM: regular rhythm GI: COMMON NORMALS: Soft to palpation and No hepatosplenomegaly present AUSCULTATION: Yes normoactive bowel sounds PALPATION: Yes Soft to palpation, No Tenderness to palpation present (GI), No Guarding due to palpation present (GI) and Yes No hepatosplenomegaly present Extremity: COMMON NORMALS: capillary refill normal and no calf tenderness OTHER: 2+ edema right leg absent below-knee amputation Neuro: SENSORIUM/ORIENTATION: Yes oriented to person, Yes oriented to place and Yes oriented to time Skin: COMMON NORMALS: no rashes or lesions noted GENERAL SKIN EXAM: no rashes or lesions noted Course Vital Signs: Vital signs: Vital Signs Temperature 98.5 F 01/03/22 04:00 Pulse Rate 75 01/03/22 11:52 Respiratory Rate 16 01/03/22 11:52 Blood Pressure 135/66 01/03/22 11:52 Pulse Oximetry 92 01/03/22 11:52 Oxygen Delivery Me thod 01/03/22 08:00 Oxygen Flow Rate 3.5 01/03/22 08:00 Fraction of Inspir ed Oxygen 40 01/03/22 01:22 MDM - SOB/Dyspnea Medical Decision Making Labs imaging and EKGs reviewed. Admit for dialysis discussed with nephrology and hospitalist. Discussed with patient the importance of keeping her dialysis appointments. Medical Records I reviewed the patient's medical records. Lab Data I reviewed the patient's lab results. : 01/03/22 04:38 01/03/22 04:38 Labs/Radiology: Radiology Impressions Chest X-Ray 01/01/22 13:29 IMPRESSION: 1. Cardiac enlargement with signs of congestive heart failure and pleural effusion. 2. Extensive infiltrates in the mid and lower lung zones bilaterally. Superimposed pneumonia could have this appearance. Chest CT 01/01/22 17:52 IMPRESSION: 1. Fluid overload features with bilateral pleural effusions. 2. Parenchymal airspace opacities are nonspecific and could reflect atypical pulmonary edema, nonspecific pneumonitis changes, bronchiolitis, atypical pneumonia. The lower lobe opacities may represent pneumonia or atelectasis. Laboratory Results WBC 7.8 10^3/uL (4.0-10.0) 01/01/22 14:25 RBC 3.63 10^6/uL (4.1-5.3) L 01/01/22 14:25 Hgb 11.3 g/dL (11.5-15.3) L 01/01/22 14:25 Hct 34.9 % (37.0-47.0) L 01/01/22 14:25 MCV 96.1 fl (81-99) 01/01/22 14:25 MCH 31.1 pg (28.0-34.0) 01/01/22 14:25 MCHC 32.4 g/dL (30.0-36.0) 01/01/22 14:25 RDW 14.3 % (12.1-15.1) 01/01/22 14:25 Plt Count 178 10^3/cmm (130-400) 01/01/22 14:25 MPV 11.4 fL (7.4-10.4) H 01/01/22 14:25 Neut % (Auto) 84.7 % 01/01/22 14:25 Lymph % (Auto) 7.4 % 01/01/22 14:25 [place] % (Auto) 3.7 % 01/01/22 14:25 Eos % (Auto) 3.1 % 01/01/22 14:25 Baso % (Auto) 0.6 % 01/01/22 14:25 Neut # (Auto) 6.59 10^3/uL (1.8-7.7) 01/01/22 14:25 Lymph # (Auto) 0.6 10^3/uL (0.8-4.8) L 01/01/22 14:25 [place] # (Auto) 0.3 10^3/uL (0.2-0.9) 01/01/22 14:25 Eos # (Auto) 0.2 10^3/uL (0.0-0.8) 01/01/22 14:25 Baso # (Auto) 0.1 10^3/uL (0.0-0.1) 01/01/22 14:25 Nucleated RBC % (auto) 0 % 01/01/22 14:25 Nucleated RBCs # 0.0 /100WBC 01/01/22 14:25 Specimen Type Arterial 01/01/22 14:57 Sample Site Brachial, right 01/01/22 14:57 ABG pH 7.36 (7.35-7.45) 01/01/22 14:57 ABG pCO2 44.4 mmHg (35-45) 01/01/22 14:57 ABG pO2 66.6 mmHg (80.0-100.0) L 01/01/22 14:57 ABG HCO3 25.0 mmol/L (22-26) 01/01/22 14:57 ABG O2 Saturation 89.8 01/01/22 14:57 ABG Base Excess -0.6 mmol/L (-2.0-2.0) 01/01/22 14:57 Jason Test Pos 01/01/22 14:57 A-a O2 Gradient 3.7 mmHg (5-10) L 01/01/22 14:57 Hematocrit 33.2 % (37-47) L 01/01/22 14:57 Hgb O2 Saturation 88.6 % (95-100) L 01/01/22 14:57 Carboxyhemoglobin 0.2 %THgb (0.4-20.1) L 01/01/22 14:57 Methemoglobin 1.2 % (0.4-1.5) 01/01/22 14:57 Total Hemoglobin 10.8 g/dL (12-16) L 01/01/22 14:57 Sodium 139.0 mmol/L (131-143) 01/01/22 14:57 Potassium 4.6 mmol/L (3.5-5.0) 01/01/22 14:57 Glucose 121.0 mg/dL (70-115) H 01/01/22 14:57 Ionized Calcium 1.1 mmol/L (1.1-1.4) 01/01/22 14:57 O2 Delivery Device Nc 01/01/22 14:57 O2 Liters/Min 2.0 % 01/01/22 14:57 [employer] Super[employer] ID Cak 01/01/22 14:57 Sodium 139 mmol/L (136-145) 01/01/22 14:25 Potassium 5.0 mmol/L (3.5-5.1) 01/01/22 14:25 Chloride 96 mmol/L (98-107) L 01/01/22 14:25 Carbon Dioxide 24 mmol/L (22-29) 01/01/22 14:25 Anion Gap 24.0 (5-19) H 01/01/22 14:25 BUN 55 mg/dL (6-20) H 01/01/22 14:25 Creatinine 7.2 mg/dL (0.5-0.9) H* 01/01/22 14:25 GFR Calculation 5.9 mL/min (90-130) L 01/01/22 14:25 Glucose 129 mg/dL (65-115) H 01/01/22 14:25 Calculated Osmolality 305 mOsm/kg (285-295) H 01/01/22 14:25 Calcium 9.1 mg/dL (8.5-10.5) 01/01/22 14:25 Total Bilirubin 0.5 mg/dL (0.15-1.2) 01/01/22 14:25 AST 14 U/L (0-32) 01/01/22 14:25 ALT 14 U/L (0-33) 01/01/22 14:25 Alkaline Phosphatase 109 IU/L (35-105) H 01/01/22 14:25 NT-Pro-B Natriuret Pep 32926 pg/mL (0-125) H 01/01/22 14:25 Total Protein 7.2 g/dL (6.6-8.7) 01/01/22 14:25 Albumin 4.0 g/dL (3.5-5.2) 01/01/22 14:25 Globulin 3.2 g/dL (1.3-4.6) 01/01/22 14:25 Hep Bs Antigen Non-reactive (Nonreactive) 01/01/22 14:25 Hep Bs Antibody 38.4 (11.5-1000) 01/01/22 14:25 Hepatitis C Antibody Non-reactive (Nonreactive) 01/01/22 14:25 Discharge Plan Discharge Patient Disposition: Admitted As Inpatient Admit Provider: Daksha Burdick Clinical Impression: End-stage renal disease needing dialysis, Acute exacerbation of CHF (congestive heart failure), Acute hyperkalemia Condition: Stable Discharge Diet: Cardiac Coding Level of Care Code ED 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
[2022-01-01 14:44] LABS: Basophils # 0.1 10^3/uL (0.0-0.1); Basophils % 0.6 %; Eosinophils # 0.2 10^3/uL (0.0-0.8); Eosinophils % 3.1 %; Hematocrit 34.9 % (37.0-47.0); Hemoglobin 11.3 g/dL (11.5-15.3); Lymphocytes # 0.6 10^3/uL (0.8-4.8); Lymphocytes % 7.4 %; Mean Corpuscular HGB Conc 32.4 g/dL (30.0-36.0); Mean Corpuscular Hemoglobin 31.1 pg (28.0-34.0); Mean Corpuscular Volume 96.1 fl (81-99); Mean Platelet Volume 11.4 fL (7.4-10.4); Monocytes # 0.3 10^3/uL (0.2-0.9); Monocytes % 3.7 %; Neutrophils # 6.59 10^3/uL (1.8-7.7); Neutrophils % 84.7 %; Nucleated Red Blood Cells % 0 %; Platelet Count 178 10^3/cmm (130-400); Red Blood Count 3.63 10^6/uL (4.1-5.3); Red Cell Distribution Width 14.3 % (12.1-15.1); White Blood Count 7.8 10^3/uL (4.0-10.0)
[2022-01-01 15:05] LABS: Alanine Aminotransferase 14 U/L (0-33); Alkaline Phosphatase 109 IU/L (35-105); Aspartate Amino Transferase 14 U/L (0-32); Blood Urea Nitrogen 55 mg/dL (6-20); Calcium 9.1 mg/dL (8.5-10.5); Carbon Dioxide 24 mmol/L (22-29); Chloride 96 mmol/L (98-107); Globulin 3.2 g/dL (1.3-4.6); Glomerular Filtration Rate 5.9 mL/min (90-130); Glucose 129 mg/dL (65-115); NT Pro B Type Natriuretic Pept 11087 pg/mL (0-125); Osmolality Calculated 305 mOsm/kg (285-295); Sodium 139 mmol/L (136-145); Total Bilirubin 0.5 mg/dL (0.15-1.2); Total Protein 7.2 g/dL (6.6-8.7)
[2022-01-01 15:08] LABS: ABG PCO2 44.4 mmHg (35-45); ABG PH Result 7.36 (7.35-7.45); Alveolar-Arterial Oxygen Gradi 3.7 mmHg (5-10); Arterial Blood Gas Hematocrit 33.2 % (37-47); Base Excess ABG -0.6 mmol/L (-2.0-2.0); Blood Gas Allen Test Pos; Blood Gas Operator Identificat CAK; Blood Gas Sample Site Brachial, right; Blood Gas Sample Type Arterial; Carboxyhemoglobin 0.2 %THgb (0.4-20.1); HGB O2 Sat 88.6 % (95-100); Ionized Calcium Level - ABG 1.1 mmol/L (1.1-1.4); Methemoglobin 1.2 % (0.4-1.5); Oxygen Device NC; Oxygen Saturation ABG 89.8; PO2 ABG 66.6 mmHg (80.0-100.0); Potassium Level - ABG 4.6 mmol/L (3.5-5.0); Total Hemoglobin 10.8 g/dL (12-16)
--- NOTE | 2022-01-01 16:01 | PM.CONSULT ---
Providers/Reason For Consult Consulting Physician/Specialty*: christelle bullard md / telenephrology Reason for Consult*: ESRD care Attending Physician: DR Rowland Primary Care Provider: Jacob Sharp DO History of Present Illness History of Present Illness Rizwana Herzog is a 56 year old female h/o IDDM, right BKA, CAD, obesity, depression, ESRD on HD MWF, and hypothyroidism. Pt has had multiple admissions this year, most recently w/ a pna in November 2021. Pt is here today w/ lethargy, sob, depression, weakness after missing hemodialysis yesterday. Pt is volume overloaded and renal is called to consult. Review of Systems Narrative: weak, sob, orthopnea, IZAGUIRRE, edema, poor appetite. Medications/Allergies Home Medications Medication Instructions Recorded Confirmed Last Taken Type aspirin 81 mg chewable tablet 81 mg PO DAILY@06/25/19 01/01/22 01/01/22 History omega 9-bwa-fkp-fish oil 300 1 cap PO BID@01/17/20 01/01/22 01/01/22 History mg-1,000 mg capsule,delayed release (Fish Oil) cholecalciferol (vitamin D3) 25 25 mcg PO DAILY@05/14/20 01/01/22 01/01/22 History mcg (1,000 unit) tablet (Vitamin D3) pantoprazole 40 mg tablet,delayed 40 mg PO DAILY@08 #90 tabs 04/02/21 01/01/22 01/01/22 Rx release pen needle, diabetic 32 gauge x #100 ea 06/17/21 01/01/22 Unknown Rx (ReliOn Pen [place]) escitalopram oxalate 20 mg tablet 20 mg PO DAILY 07/22/21 01/01/22 01/01/22 History PROSTHETIC SUPPLIES #1 ea 08/21/21 01/01/22 Unknown Rx vitamin B complex-vitamin C 100 1 tab PO DAILY 09/02/21 01/01/22 01/01/22 History mg-folic acid 1 mg tablet (Dialyvite) insulin glargine 100 unit/mL (3 5 unit (0.05 mL) SUBCUT BID@09/05/21 01/01/22 01/01/22 Rx mL) subcutaneous pen (Lantus #15 mL Solostar U-100 Insulin) glucosamine sulf dipot 1 cap PO DAILY 09/22/21 01/01/22 01/01/22 History chlr,msm,chond 550 mg-C 30 mg-janet 1 mg capsule (Glucosamine Chondroitin) levothyroxine 150 mcg tablet 150 mcg PO QAM #90 tabs 11/04/21 01/01/22 01/01/22 Rx (Euthyrox) cyclobenzaprine 10 mg tablet 10 mg PO TID PRN muscle spasm #30 11/13/21 01/01/22 Unknown Rx tabs hydralazine 100 mg tablet 100 mg PO BID 11/28/21 01/01/22 01/01/22 History isosorbide mononitrate 60 mg 60 mg PO DAILY 12/15/21 01/01/22 01/01/22 History tablet,extended release 24 hr ketorolac 0.5 % eye drops 1 drp ophthalmic (eye) QID 12/15/21 01/01/22 01/01/22 History prednisolone acetate 1 % eye 1 drp ophthalmic (eye) QID 12/15/21 01/01/22 01/01/22 History drops,suspension amlodipine 10 mg tablet 10 mg PO DAILY #90 tabs 12/17/21 01/01/22 01/01/22 Rx atorvastatin 40 mg tablet 40 mg PO DAILY@20 #90 tabs 12/17/21 01/01/22 01/01/22 Rx clonazepam 0.25 mg disintegrating 0.25 mg PO BID PRN Anxiety #30 tabs 12/18/21 01/01/22 01/01/22 Rx tablet sertraline 50 mg tablet 50 mg PO DAILY 01/01/22 01/01/22 01/01/22 History Allergies Allergy/AdvReac Type Severity Reaction Status Date / Time metformin [From Glucophage] Allergy Severe Unknown Verified 01/01/22 15:20 venlafaxine [From Effexor] Allergy Severe ADR-Shakine Verified 01/01/22 15:20 ss PFSH Acute PFSH: Medical History Adjustment disorder with mixed disturbance of emotions and conduct Anemia in chronic kidney disease Anxiety BPPV (benign paroxysmal positional vertigo) CAD (coronary artery disease) Carotid stenosis 04/2020: Right < 50%, Left near 70% Chronic diastolic CHF (congestive heart failure) 12/2020 EF 55%, grade II/IV diastolic dysfunction Chronic kidney disease Chronic left sacroiliac joint pain CKD (chronic kidney disease) stage 5, GFR less than 15 ml/min Claustrophobia Compressive atelectasis Congestive heart failure Diabetes mellitus Diabetes mellitus, with long-term current use of insulin Diverticulitis Elevated troponin End stage renal disease ESBL (extended spectrum beta-lactamase) producing bacteria infection ESRD (end stage renal disease) on dialysis DAILY (generalized anxiety disorder) Gastroparesis GERD (gastroesophageal reflux disease) Gram-negative bacteremia Hemodialysis catheter dysfunction HTN (hypertension) Hyperlipidemia Hypocalcemia due to chronic kidney disease Hypothyroidism Hypoxemia Lumbar back pain Major depression, recurrent Mixed dyslipidemia DOROTEO on CPAP PAD (peripheral artery disease) Partial nontraumatic amputation of left foot (~06/2019) Peripheral vascular disease Peritonitis associated with peritoneal dialysis Phantom pain Pneumonia due to COVID-19 virus (~12/2020) Positive cardiac stress test Sleep apnea Suicidal ideation TIA (transient ischemic attack) Vitamin D deficiency Surgical History AV (arteriovenous fistula) (~10/2020) H/O hysterectomy with oophorectomy History of appendectomy History of cataract surgery History of heart artery stent PCI to LAD, done in [place], [place] 10/2018 ENRIQUE to mid LAD at [facility] 04/2020 History of hysterectomy History of left heart catheterization 04/2020 Findings: 1. There is severe coronary artery disease. 2. FFR of mid LAD was 0.76. 3. Severe OM 2 stenosis. However this is a small sized distal vessel. 4. Mid Left Anterior Descending Coronary Artery was treated with Balloon and Drug Eluting Stent History of right below knee amputation Peritoneal dialysis catheter in place Removed due to recurrent peritonitis S/P cholecystectomy S/P PICC central line placement (~2019) Status post amputation of toe Family History Denies family history of CAD (coronary artery disease) Clotting disorder Dementia Bleeding disorder Social History Smoking and tobacco status: never smoked Alcohol intake: never Household members: spouse and family History of recent travel: No Vitals/I&O/Wt Last Vital Signs Temp 97.5 F L 01/01/22 13:22 Pulse 77 01/01/22 13:35 Resp 20 H 01/01/22 13:35 BP 165/75 01/01/22 13:35 Pulse Ox 96 01/01/22 13:35 O2 Del Method 01/01/22 13:35 O2 Flow Rate 2 01/01/22 13:35 Weight last 48 hrs Weight 84.822 kg Physical Exam Narrative: obese in bed, uncomfortable vs noted heent- nc/at, eomi, anicteric neck supple lungs crackles heart-reg abd soft, + bs ext Rt BKA, +LLE neuro- a,a, o x 3 LUE AVF w/ thrill Data : 01/01/22 14:25 01/01/22 14:25 A&P Assessment and plan (1) ESRD on hemodialysis: 56 yr old female 1. ESRD- volume overload, sob, mild hyperkalemia- HD now- 3.5 hrs, 2k bath, remove 3l 2. htn- monitor w/ dialysis 3. monitor tsh 4. dm control 5.hgb okay 6. CHF - monitor w/ dialysis- likely today and tomorrow seen and examined w/ RN -telehealth visit time spent 50 min Status: Acute Plan sob, htn- HD now Consult Attestations Medical Necessity Statement: sob, htn, esrd- hd now Time Spent in Patient Care: Greater than 35 minutes (>than 50% of time spent in counselling and/or direct pt care on unit). Coding Level of Care Code Acute Director Of Primary for Maris Braden Diagnoses ESRD on hemodialysis N18.6; Z99.2
--- NOTE | 2022-01-01 16:43 | P.HP_ITS ---
Providers/Chief Complaint Admitting Physician: Daksha Burdick MD Primary Care Provider: Jacob Sharp DO Chief Complaint: SOB History of Present Illness Rizwana Herzog is a 56 year old female who has multiple comorbid condition, recurrent admission secondary to missing her dialysis appointment, presenting today for chief, worsening shortness of breath. At baseline she is using 2 L of oxygen. She could not attend her dialysis on Wednesday, presented today for worsening shortness of orthopnea PND. In the ER Dr. Rivas has examined her and recommended dialysis. Currently she is saturating 86-88 percent on 2 L nasal cannula, I have requested RT to put on nonrebreather mask for now. She is not complaining of chest pain, fever, nausea, vomiting diarrhea. Work-up consistent with fluid overload, chest x-ray consistent with pulm edema, will request COVID-19 antigen and start her on ceftriaxone, will do CT scan after her dialysis Review of Systems Const: Denies: fever(s) Eyes: Denies: change in vision ENMT: Denies: throat pain Card: Denies: chest pain Resp: Reports: dyspnea GI: Denies: abdominal pain : Denies: flank pain Musc: Denies: neck pain Skin/Breast: Denies: rash Neuro: Denies: headache(s) Psych: Denies: anxiety Endo: Denies: polyuria Refugio/Lymph: Denies: easy bruising All/Imm: Denies: urticaria Medications/Allergies Home Medications Medication Instructions Recorded Confirmed Last Taken Type aspirin 81 mg chewable tablet 81 mg PO DAILY@06/25/19 01/01/22 01/01/22 History omega 6-fwi-xyl-fish oil 300 1 cap PO BID@01/17/20 01/01/22 01/01/22 History mg-1,000 mg capsule,delayed release (Fish Oil) cholecalciferol (vitamin D3) 25 25 mcg PO DAILY@05/14/20 01/01/22 01/01/22 History mcg (1,000 unit) tablet (Vitamin D3) pantoprazole 40 mg tablet,delayed 40 mg PO DAILY@ #90 tabs 04/02/21 01/01/22 01/01/22 Rx release pen needle, diabetic 32 gauge x #100 ea 06/17/21 01/01/22 Unknown Rx (ReliOn Pen Anderson) escitalopram oxalate 20 mg tablet 20 mg PO DAILY 07/22/21 01/01/22 01/01/22 History PROSTHETIC SUPPLIES #1 ea 08/21/21 01/01/22 Unknown Rx vitamin B complex-vitamin C 100 1 tab PO DAILY 09/02/21 01/01/22 01/01/22 History mg-folic acid 1 mg tablet (Dialyvite) insulin glargine 100 unit/mL (3 5 unit (0.05 mL) SUBCUT BID@08,09/05/21 01/01/22 01/01/22 Rx mL) subcutaneous pen (Lantus #15 mL Solostar U-100 Insulin) glucosamine sulf dipot 1 cap PO DAILY 09/22/21 01/01/22 01/01/22 History chlr,msm,chond 550 mg-C 30 mg-janet 1 mg capsule (Glucosamine Chondroitin) levothyroxine 150 mcg tablet 150 mcg PO QAM #90 tabs 11/04/21 01/01/22 01/01/22 Rx (Euthyrox) cyclobenzaprine 10 mg tablet 10 mg PO TID PRN muscle spasm #30 11/13/21 01/01/22 Unknown Rx tabs hydralazine 100 mg tablet 100 mg PO BID 11/28/21 01/01/22 01/01/22 History isosorbide mononitrate 60 mg 60 mg PO DAILY 12/15/21 01/01/22 01/01/22 History tablet,extended release 24 hr ketorolac 0.5 % eye drops 1 drp ophthalmic (eye) QID 12/15/21 01/01/22 01/01/22 History prednisolone acetate 1 % eye 1 drp ophthalmic (eye) QID 12/15/21 01/01/22 01/01/22 History drops,suspension amlodipine 10 mg tablet 10 mg PO DAILY #90 tabs 12/17/21 01/01/22 01/01/22 Rx atorvastatin 40 mg tablet 40 mg PO DAILY@20 #90 tabs 12/17/21 01/01/22 01/01/22 Rx clonazepam 0.25 mg disintegrating 0.25 mg PO BID PRN Anxiety #30 tabs 12/18/21 01/01/22 01/01/22 Rx tablet sertraline 50 mg tablet 50 mg PO DAILY 01/01/22 01/01/22 01/01/22 History Allergies Allergy/AdvReac Type Severity Reaction Status Date / Time metformin [From Glucophage] Allergy Severe Unknown Verified 01/01/22 15:20 venlafaxine [From Effexor] Allergy Severe ADR-Shakine Verified 01/01/22 15:20 PFSH Acute PFSH: Medical History Adjustment disorder with mixed disturbance of emotions and conduct Anemia in chronic kidney disease Anxiety BPPV (benign paroxysmal positional vertigo) CAD (coronary artery disease) Carotid stenosis 04/2020: Right < 50%, Left near 70% Chronic diastolic CHF (congestive heart failure) 12/2020 EF 55%, grade II/IV diastolic dysfunction Chronic kidney disease Chronic left sacroiliac joint pain CKD (chronic kidney disease) stage 5, GFR less than 15 ml/min Claustrophobia Compressive atelectasis Congestive heart failure Diabetes mellitus Diabetes mellitus, with long-term current use of insulin Diverticulitis Elevated troponin End stage renal disease ESBL (extended spectrum beta-lactamase) producing bacteria infection ESRD (end stage renal disease) on dialysis DAILY (generalized anxiety disorder) Gastroparesis GERD (gastroesophageal reflux disease) Gram-negative bacteremia Hemodialysis catheter dysfunction HTN (hypertension) Hyperlipidemia Hypocalcemia due to chronic kidney disease Hypothyroidism Hypoxemia Lumbar back pain Major depression, recurrent Mixed dyslipidemia DOROTEO on CPAP PAD (peripheral artery disease) Partial nontraumatic amputation of left foot (~06/2019) Peripheral vascular disease Peritonitis associated with peritoneal dialysis Phantom pain Pneumonia due to COVID-19 virus (~12/2020) Positive cardiac stress test Sleep apnea Suicidal ideation TIA (transient ischemic attack) Vitamin D deficiency Surgical History AV (arteriovenous fistula) (~10/2020) H/O hysterectomy with oophorectomy History of appendectomy History of cataract surgery History of heart artery stent PCI to LAD, done in [place], [place] 10/2018 ENRIQUE to mid LAD at [facility] 04/2020 History of hysterectomy History of left heart catheterization 04/2020 Findings: 1. There is severe coronary artery disease. 2. FFR of mid LAD was 0.76. 3. Severe OM 2 stenosis. However this is a small sized distal vessel. 4. Mid Left Anterior Descending Coronary Artery was treated with Balloon and Drug Eluting Stent History of right below knee amputation Peritoneal dialysis catheter in place Removed due to recurrent peritonitis S/P cholecystectomy S/P PICC central line placement (~2019) Status post amputation of toe Family History Denies family history of CAD (coronary artery disease) Clotting disorder Dementia Bleeding disorder Social History Smoking and tobacco status: never smoked Alcohol intake: never Household members: spouse and family History of recent travel: No Vitals/I&O/Wt Last Vital Signs Temp 97.5 F L 01/01/22 13:22 Pulse 77 01/01/22 13:35 Resp 20 H 01/01/22 13:35 BP 165/75 01/01/22 13:35 Pulse Ox 96 01/01/22 13:35 O2 Del Method 01/01/22 13:35 O2 Flow Rate 2 01/01/22 13:35 Weight last 48 hrs Weight 84.822 kg Physical Exam Narrative: Middle-age female Clinical signs of fluid overload Bilateral breath sound with mild rhonchi at the base Currently 88% on 2 L nasal cannula Increase oxygen requirement to 4 L asked RT to see her Abdomen soft Lower extremity mild edema Lips are dry Awake and alert Nonfocal neuro exam She is waiting prosthesis on right leg Appropriate mood and affect No cellulitis EOMI, PERRLA nonfocal neuro exam Data : 01/01/22 14:25 01/01/22 14:25 A&P Assessment and plan (1) Acute hyperkalemia: Status: Acute (2) Acute dyspnea: Status: Acute (3) CHF exacerbation: Status: Acute (4) End-stage renal disease (ESRD): Status: Acute (5) ESRD on hemodialysis: Status: Acute (6) Light headedness: Status: Acute (7) Phantom pain: Status: Acute (8) S/P hemodialysis catheter insertion: Status: Acute (9) Anxiety and depression: Status: Acute Plan Volume overload Secondary to end-stage renal disease Missed her dialysis on Wednesday Dr. Rivas is consulted End-stage renal disease Wednesday dialysis I do believe she will need dialysis on next 3 consecutive days Acute on chronic hypoxia CHF exacerbation, diastolic Rule out pneumonia we will request CT chest We will give her 1 dose of ceftriaxone BiPAP at bedtime and as needed use DuoNeb every 4 as needed Respiratory to assess and treat At baseline uses 2 L No active chest pain Noncompliant Full code Renal dialysis diet DVT prophylaxis Heparin Back pain is chronic, continue opioids Bowel regimen Anemia of chronic disease stable DOROTEO on CPAP at night Type 2 diabetes Hypertensive urgency continue antiepileptic regimen ?recent coronary angiogram with revealed Mild disease in LCx, RCA and px to mid LAD. Distal LAD with distal short OM with 80% stenosis. Too small to be intervened. RHC with elevated PCWP and PA pressure. Attestations Medical Necessity Statement*: Anticipating discharge within 48 hours Time Spent in Patient Care: 40 Coding Level of Care Code Acute Emissions Testing Technician for Maris Fwparth Diagnoses Acute hyperkalemia E87.5 Acute dyspnea R06.00 CHF exacerbation I50.9 End-stage renal disease (ESRD) N18.6 ESRD on hemodialysis N18.6; Z99.2 Light headedness R42 Phantom pain G54.6 S/P hemodialysis catheter insertion Z99.2 Anxiety and depression F41.9; F32.A
--- NOTE | 2022-01-01 17:52 | CTR_ITS ---
PROCEDURE INFORMATION: Exam: CT Chest Without Contrast; Diagnostic Exam date and time: 01/02/2022 12:35 AM Age: 56 years old Clinical indication: Shortness of breath; Prior surgery; Surgery type: Cardiac stents. Gb. Patient HX: Worsening SOB. Recent history of pneumonia. ; Additional info: Pna TECHNIQUE: Imaging protocol: Diagnostic computed tomography of the chest without contrast. Radiation optimization: All CT scans at this facility use at least one of these dose optimization techniques: automated exposure control; mA and/or kV adjustment per patient size (includes targeted exams where dose is matched to clinical indication); or iterative reconstruction. COMPARISON: CT angio chest PE protcl [id number] 10/20/2021 1:33 PM RADIATION DOSE METRICS: Total DLP (mGy-cm): 567.6 FINDINGS: Thyroid: Symmetric, atrophic thyroid lobes. Lungs: Mosaic attenuation changes of lung parenchyma. Patchy ground-glass opacities. Lower lobe opacities with air bronchograms. Negative for endobronchial obstruction. Reticular changes of interstitium. No peripheral honeycombing. Pleural spaces: Moderate volume bilateral pleural effusions. Negative for pneumothorax. Heart: Multichamber cardiac dilation. Negative for pericardial effusion. Coronary artery calcifications are extensive. Mediastinal space: Unremarkable thoracic esophagus. Lymph nodes: Unremarkable. No enlarged lymph nodes. Vasculature: Unremarkable. No aortic aneurysm. Gallbladder and bile ducts: Cholecystectomy. Bones/joints: Unremarkable. No acute fracture. Soft tissues: Unremarkable. CT/CT chest [facility] [id number] IMPRESSION: 1. Fluid overload features with bilateral pleural effusions. 2. Parenchymal airspace opacities are nonspecific and could reflect atypical pulmonary edema, nonspecific pneumonitis changes, bronchiolitis, atypical pneumonia. The lower lobe opacities may represent pneumonia or atelectasis.
[2022-01-01 18:06] LABS: Hepatitis B Surface AB 38.4 (11.5-1000); Hepatitis B Surface Antigen Non-Reactive (Nonreactive); Hepatitis C Virus Antibody Non-Reactive (Nonreactive)
[2022-01-01] MEDS: cefTRIAXone 1,000 MG in sodium chloride 0.9% (plus) 50 ML 100 MG IV (18:37)
[2022-01-01] MEDS: heparin 5,000 unit/mL INJ 1 mL 5000 UNIT SUBCUT (18:38)
[2022-01-01] MEDS: oxyCODONE 5 mg IR Tab/Cap PO (22:42)
[2022-01-01] MEDS: insulin glargine 100 units/1 mL 5 UNIT SUBCUT (23:27)
[2022-01-02] VITALS (13 sets, daily range): BP systolic 115–163; BP diastolic 67–78; PULSE 71–86; RESP 14–20; TEMP 36.7–37; O2SAT 92–98
[2022-01-02] MEDS: levothyroxine 150 mcg Tablet PO (05:33)
[2022-01-02] MEDS: heparin 5,000 unit/mL INJ 1 mL 5000 UNIT SUBCUT ×2 (05:33→17:41)
[2022-01-02] MEDS: oxyCODONE 5 mg IR Tab/Cap PO ×3 (05:33→20:33)
[2022-01-02 06:12] LABS: Basophils % 0.4 %; Eosinophils # 0.2 10^3/uL (0.0-0.8); Eosinophils % 3.1 %; Hematocrit 29.1 % (37.0-47.0); Hemoglobin 9.4 g/dL (11.5-15.3); Lymphocytes # 0.5 10^3/uL (0.8-4.8); Mean Corpuscular HGB Conc 32.3 g/dL (30.0-36.0); Mean Corpuscular Hemoglobin 31.1 pg (28.0-34.0); Mean Corpuscular Volume 96.4 fl (81-99); Mean Platelet Volume 11.1 fL (7.4-10.4); Monocytes # 0.4 10^3/uL (0.2-0.9); Monocytes % 5.6 %; Neutrophils # 5.59 10^3/uL (1.8-7.7); Neutrophils % 82.5 %; Nucleated Red Blood Cells % 0 %; Platelet Count 151 10^3/cmm (130-400); Red Blood Count 3.02 10^6/uL (4.1-5.3); Red Cell Distribution Width 14.2 % (12.1-15.1); White Blood Count 6.8 10^3/uL (4.0-10.0)
[2022-01-02 06:37] LABS: Alanine Aminotransferase 11 U/L (0-33); Albumin Level 3.2 g/dL (3.5-5.2); Alkaline Phosphatase 89 IU/L (35-105); Anion Gap 15.4 (5-19); Aspartate Amino Transferase 14 U/L (0-32); Blood Urea Nitrogen 33 mg/dL (6-20); Calcium 8.7 mg/dL (8.5-10.5); Carbon Dioxide 28 mmol/L (22-29); Chloride 99 mmol/L (98-107); Globulin 2.7 g/dL (1.3-4.6); Glomerular Filtration Rate 8.5 mL/min (90-130); Glucose 89 mg/dL (65-115); Osmolality Calculated 293 mOsm/kg (285-295); Potassium 4.4 mmol/L (3.5-5.1); Sodium 138 mmol/L (136-145); Total Bilirubin 0.6 mg/dL (0.15-1.2); Total Protein 5.9 g/dL (6.6-8.7)
[2022-01-02 06:38] LABS: Magnesium 1.8 mg/dL (1.7-2.3); Phosphorus 5.5 mg/dL (2.5-4.5)
--- NOTE | 2022-01-02 06:50 | PM.PN ---
Subjective Subjective: feels better. less sob. used bipap at night. no willingham or cp or diarrhea Medications: Reviewed: Yes Medication Review Details: Current Medications Amlodipine Besylate (Amlodipine 10 Mg Tablet) 10 mg PO DAILY [facility] Aspirin (Aspirin 81 Mg Chew Tablet) 81 mg PO DAILY@08 [facility] Heparin Sodium (Porcine) (Heparin 5,000 Unit/Ml Inj 1 Ml) 5,000 unit SUBCUT Q12H [facility] Last Admin: 01/02/22 05:33 Dose: 5,000 unit Hydralazine HCl (Hydralazine 50 Mg Tablet) 100 mg PO BID [facility] Ceftriaxone Sodium 1,000 mg/ (Sodium Chloride) 50 mls @ 100 mls/hr IV Q24H [facility]; Protocol Last Admin: 01/01/22 18:37 Dose: 100 mls/hr Insulin Glargine (Insulin Glargine 100 Units/1 Ml) 5 unit SUBCUT BID@08,20 [facility] Last Admin: 01/01/22 23:27 Dose: 5 unit Isosorbide Mononitrate (Isosorbide Mononitrate Er 60 Mg Tablet) 60 mg PO DAILY [facility] Levothyroxine Sodium (Levothyroxine 150 Mcg Tablet) 150 mcg PO QAM [facility] Last Admin: 01/02/22 05:33 Dose: 150 mcg Ondansetron HCl (Ondansetron 2 Mg/Ml Sdv 2 Ml) 4 mg IVP Q6H PRN PRN Reason: NAUSEA AND VOMITING Oxycodone HCl (Oxycodone 5 Mg Ir Tab/Cap) 5 mg PO Q6H PRN PRN Reason: MODERATE PAIN Last Admin: 01/02/22 05:33 Dose: 5 mg Pantoprazole Sodium (Pantoprazole Dr 40 Mg Tablet) 40 mg PO DAILY@08 [facility] Sertraline HCl (Sertraline 50 Mg Tablet) 50 mg PO DAILY [facility] Vitals/I&O/Wt Last Vital Signs Temp 98.6 F 01/02/22 04:00 Pulse 74 01/02/22 04:00 Resp 16 01/02/22 05:33 BP 163/78 01/02/22 04:00 Pulse Ox 98 01/02/22 05:33 O2 Del Method 01/01/22 22:52 O2 Flow Rate 40 01/01/22 22:52 FiO2 40 01/02/22 02:36 01/01/22 01/01/22 01/02/22 14:59 22:59 06:59 Intake Total 285 / 285 320 / 605 Output Total 400 / 400 0 / 400 Balance -115 / -115 320 / 205 Weight last 48 hrs Weight 92.397 kg Weight 84.822 kg Weight 84.822 kg Physical Exam Narrative: obese in bed, used BIPAP overnight. she is more comfortable vs noted heent- nc/at, eomi, anicteric neck supple lungs improved air movement b/l heart-reg abd soft, + bs ext Rt BKA, no LLE neuro- a,a, o x 3 LUE AVF w/ thrill Data : 01/02/22 06:01 01/02/22 06:01 A&P Assessment and plan (1) ESRD on hemodialysis: 56 yr old female 1. ESRD- s/p HD yesterday -repeat routine HD today- 3.5 hrs, 2k bath, remove 3l -phos binders 2. htn- monitor w/ dialysis 3. monitor tsh 4. dm control 5.anemia- iron stduies and TRISH 6. CHF - w/ preserved EF monitor w/ dialysis 7. for ct scan today. Q PNA per medicine seen and examined w/ RN -telehealth visit time spent 30 min Status: Acute Plan sob, htn- HD now Attestations Medical Necessity Statement*: sob, chf, esrd Time Spent in Patient Care: 16 - 35 minutes (>than 50% of time spent in counselling and/or direct pt care on unit). Coding Level of Care Code Acute Oncology Rep for Maris Braden Diagnoses ESRD on hemodialysis N18.6; Z99.2
[2022-01-02] MEDS: insulin glargine 100 units/1 mL 5 UNIT SUBCUT ×2 (08:51→20:34)
[2022-01-02] MEDS: isosorbide mononitrate ER 60 mg Tablet PO (08:51)
[2022-01-02] MEDS: sertraline 50 mg Tablet PO (08:51)
[2022-01-02] MEDS: amlodipine 10 mg Tablet PO (08:51)
[2022-01-02] MEDS: pantoprazole DR 40 mg Tablet PO (08:51)
[2022-01-02] MEDS: hyDRALAzine 50 mg Tablet 100 MG PO ×2 (08:51→17:41)
[2022-01-02] MEDS: aspirin 81 mg Chew Tablet PO (08:52)
--- NOTE | 2022-01-02 09:49 | PC.CHAP ---
Pastoral Care Encounter/Spiritual Assessment Type of Contact [] Declined air quality specialist visit [] Patient/Family/Request visit [] Outpatient visit [] Follow-up visit [] Physician referral [] Code/Alert [x] Routine visit [] Staff referral [] Actively dying [x] Patient sleeping [] Family support [] [] Out of room [] Palliative care [] [] Receiving care in room [] Pre-surgical visit [] Trauma [] Long length of stay [] ICU visit [] Other: Relational/Emotional Strength [] Patient feels connected with others/family/visitors/staff [] Distress [] Loneliness/isolation [] Abandonment Spirituality of Patient [] Person of Talya [] Attends Judaism of their Talya [] Believes in Prayer [] Reads Bible or Advent materials [] There are Spiritual issues to be addressed Appeals Officer Interventions [] Prayer [] Active listening [] Non-anxious presence [] Spiritual/emotional support [] Crisis/trauma care [] Spiritual counseling [] Bereavement support [] Provided bereavement packet [] Provided Bible/devotional materials [] Provided toy/stuffed animal, coloring book to patient or family member [] Provided Communion [] Anointing/Adkins [] Salvation [] Completed spiritual assessment [] Other: Impact on Illness or Injury [] Angry [] Fearful [] Anxious [] Often cries [] Exhaustion [] Unable to work [] Unable to attend christian [] Unable to walk/stand [] Unable to read [] Unable to drive [] Unable to eat/drink [] Unable to sleep [] Unable to be with family [] Patient intubated [] Other: Summary Time spent with patient
--- NOTE | 2022-01-02 10:44 | PM.PN ---
Subjective Subjective: Patient is a 2 L at home currently on she will get dialysis oxygen today as well No active chest pain No acute shortness of breath or abdominal pain Vitals/I&O/Wt Last Vital Signs Temp 98.1 F 01/02/22 08:00 Pulse 73 01/02/22 08:00 Resp 17 01/02/22 08:00 BP 145/70 01/02/22 08:00 Pulse Ox 93 01/02/22 08:00 O2 Del Method 01/02/22 08:00 O2 Flow Rate 4 01/02/22 08:00 FiO2 40 01/02/22 02:36 01/01/22 01/02/22 01/02/22 22:59 06:59 14:59 Intake Total 335 / 335 320 / 655 60 / 60 Output Total 400 / 400 0 / 400 Balance -65 / -65 320 / 255 60 / 60 Weight last 48 hrs Weight 92.397 kg Weight 84.822 kg Weight 84.822 kg Physical Exam Narrative: Patient is laying supine Note mild crackles on lung auscultation noted No audible stridor or wheezing No significant volume overload clinically Patient clinically looks slightly better Abdomen soft Left arm AV fistula Awake and alert Nonfocal neuro exam Currently on 4 L Data : 01/02/22 06:01 01/02/22 06:01 A&P Assessment and plan (1) Acute dyspnea: Status: Acute (2) CHF exacerbation: Status: Acute (3) End-stage renal disease (ESRD): Status: Acute (4) ESRD on hemodialysis: Status: Acute Plan Acute on chronic hypoxic acute on chronic hypoxia Volume overload CHF and end-stage renal disease Another dialysis session today Cardiac wheezing present I am anticipating that we will able to discharge her over the weekend if she stays clinically stable She might need another dialysis session on Wednesday Will touch base with nephro Potassium is normal No fever or leukocytosis I give her empirical ceftriaxone however I do believe she has congestive heart failure pulm edema presentation which is evident on her chest x-ray and CT scan of her chest, suspicion for pneumonia is low at this point Continue levothyroxine Full code Renal dialysis diet Appreciate nephro recommendations Blood pressure is within tolerable range on current antihypertensive regimen Continue insulin, for her type 2 diabetes, Attestations Medical Necessity Statement*: Continue medical management Time Spent in Patient Care: 30 Coding Level of Care Code Acute Superintendent Sanitation for Maris Braden Diagnoses Acute dyspnea R06.00 CHF exacerbation I50.9 End-stage renal disease (ESRD) N18.6 ESRD on hemodialysis N18.6; Z99.2
[2022-01-02] MEDS: epoetin alfa 1000 Unit/0.05 mL (ESRD) 8000 UNIT SUBCUT (10:49)
[2022-01-02] MEDS: cefTRIAXone 1,000 MG in sodium chloride 0.9% (plus) 50 ML 100 MG IV (17:40)
[2022-01-02 21:00] LABS: Glucose Point of Care 113 mg/dL (70-110)
[2022-01-03] VITALS (7 sets, daily range): BP systolic 111–154; BP diastolic 63–67; PULSE 40–76; RESP 14–19; TEMP 36.8–36.9; O2SAT 92–97
[2022-01-03] MEDS: diphenhydrAMINE 25 mg Capsule PO (01:12)
[2022-01-03] MEDS: oxyCODONE 5 mg IR Tab/Cap PO (04:51)
[2022-01-03 05:08] LABS: Basophils % 0.7 %; Eosinophils # 0.4 10^3/uL (0.0-0.8); Eosinophils % 7.7 %; Hematocrit 30.7 % (37.0-47.0); Hemoglobin 9.7 g/dL (11.5-15.3); Lymphocytes # 0.6 10^3/uL (0.8-4.8); Lymphocytes % 12.7 %; Mean Corpuscular HGB Conc 31.6 g/dL (30.0-36.0); Mean Corpuscular Hemoglobin 30.8 pg (28.0-34.0); Mean Corpuscular Volume 97.5 fl (81-99); Mean Platelet Volume 11.6 fL (7.4-10.4); Monocytes # 0.5 10^3/uL (0.2-0.9); Monocytes % 10.3 %; Neutrophils # 3.12 10^3/uL (1.8-7.7); Neutrophils % 68.2 %; Nucleated Red Blood Cells % 0 %; Platelet Count 162 10^3/cmm (130-400); Red Blood Count 3.15 10^6/uL (4.1-5.3); Red Cell Distribution Width 14.2 % (12.1-15.1); White Blood Count 4.6 10^3/uL (4.0-10.0)
[2022-01-03 05:42] LABS: Calcium 8.7 mg/dL (8.5-10.5)
[2022-01-03 05:46] LABS: Parathyroid Hormone 239.5 pg/mL (15-65)
[2022-01-03 06:01] LABS: 25 Hydroxy Vitamin D 32 ng/mL (30-100); Alanine Aminotransferase 9 U/L (0-33); Albumin Level 3.1 g/dL (3.5-5.2); Alkaline Phosphatase 80 IU/L (35-105); Anion Gap 15.2 (5-19); Aspartate Amino Transferase 11 U/L (0-32); Blood Urea Nitrogen 24 mg/dL (6-20); Calcium 8.8 mg/dL (8.5-10.5); Carbon Dioxide 29 mmol/L (22-29); Chloride 97 mmol/L (98-107); Ferritin 944 ng/mL (15-150); Glomerular Filtration Rate 11.2 mL/min (90-130); Glucose 128 mg/dL (65-115); Iron 54 ug/dL (37-145); Osmolality Calculated 290 mOsm/kg (285-295); Phosphorus 4.7 mg/dL (2.5-4.5); Potassium 4.2 mmol/L (3.5-5.1); Sodium 137 mmol/L (136-145); Thyroid Stimulating Hormone 14.23 uIU/mL (0.27-4.20); Total Bilirubin 0.4 mg/dL (0.15-1.2); Total Iron Binding Capacity 142 mcg/dl; Total Protein 6.1 g/dL (6.6-8.7); Unsaturated Iron Binding 88 ug/dL (112-347)
[2022-01-03] MEDS: levothyroxine 150 mcg Tablet PO (06:16)
[2022-01-03] MEDS: heparin 5,000 unit/mL INJ 1 mL 5000 UNIT SUBCUT (06:16)
[2022-01-03 06:18] LABS: Glucose Point of Care 104 mg/dL (70-110)
[2022-01-03] MEDS: isosorbide mononitrate ER 60 mg Tablet PO (08:11)
[2022-01-03] MEDS: sertraline 50 mg Tablet PO (08:11)
[2022-01-03] MEDS: hyDRALAzine 50 mg Tablet 100 MG PO (08:12)
[2022-01-03] MEDS: aspirin 81 mg Chew Tablet PO (08:12)
[2022-01-03] MEDS: amlodipine 10 mg Tablet PO (08:12)
[2022-01-03] MEDS: insulin glargine 100 units/1 mL 5 UNIT SUBCUT (08:12)
[2022-01-03] MEDS: pantoprazole DR 40 mg Tablet PO (08:12)
--- NOTE | 2022-01-03 08:51 | PM.PN ---
Subjective Subjective: feels better. wants to go home. no n/v/f/c/willingham/d/leg pains Medications: Reviewed: Yes Medication Review Details: Current Medications Amlodipine Besylate (Amlodipine 10 Mg Tablet) 10 mg PO DAILY [facility] Last Admin: 01/03/22 08:12 Dose: 10 mg Aspirin (Aspirin 81 Mg Chew Tablet) 81 mg PO DAILY@08 [facility] Last Admin: 01/03/22 08:12 Dose: 81 mg Heparin Sodium (Porcine) (Heparin 5,000 Unit/Ml Inj 1 Ml) 5,000 unit SUBCUT Q12H [facility] Last Admin: 01/03/22 06:16 Dose: 5,000 unit Hydralazine HCl (Hydralazine 50 Mg Tablet) 100 mg PO BID [facility] Last Admin: 01/03/22 08:12 Dose: 100 mg Ceftriaxone Sodium 1,000 mg/ (Sodium Chloride) 50 mls @ 100 mls/hr IV Q24H [facility]; Protocol Last Infusion: 01/02/22 18:27 Dose: Infused Insulin Glargine (Insulin Glargine 100 Units/1 Ml) 5 unit SUBCUT BID@08,20 [facility] Last Admin: 01/03/22 08:12 Dose: 5 unit Isosorbide Mononitrate (Isosorbide Mononitrate Er 60 Mg Tablet) 60 mg PO DAILY [facility] Last Admin: 01/03/22 08:11 Dose: 60 mg Levothyroxine Sodium (Levothyroxine 150 Mcg Tablet) 150 mcg PO QAM [facility] Last Admin: 01/03/22 06:16 Dose: 150 mcg Ondansetron HCl (Ondansetron 2 Mg/Ml Sdv 2 Ml) 4 mg IVP Q6H PRN PRN Reason: NAUSEA AND VOMITING Oxycodone HCl (Oxycodone 5 Mg Ir Tab/Cap) 5 mg PO Q6H PRN PRN Reason: MODERATE PAIN Last Admin: 01/03/22 04:51 Dose: 5 mg Pantoprazole Sodium (Pantoprazole Dr 40 Mg Tablet) 40 mg PO DAILY@08 [facility] Last Admin: 01/03/22 08:12 Dose: 40 mg Sertraline HCl (Sertraline 50 Mg Tablet) 50 mg PO DAILY [facility] Last Admin: 01/03/22 08:11 Dose: 50 mg Vitals/I&O/Wt Last Vital Signs Temp 98.5 F 01/03/22 04:00 Pulse 75 01/03/22 08:00 Resp 15 01/03/22 08:00 BP 154/67 01/03/22 08:00 Pulse Ox 95 01/03/22 08:00 O2 Del Method 01/03/22 08:00 O2 Flow Rate 3.5 01/03/22 08:00 FiO2 40 01/03/22 01:22 01/02/22 01/03/22 01/03/22 22:59 06:59 14:59 Intake Total 370 / 490 220 / 710 Output Total 50 / 50 0 / 50 Balance 320 / 440 220 / 660 Weight last 48 hrs Weight 92.397 kg Weight 84.822 kg Weight 84.822 kg Physical Exam Narrative: obese, comfortable, NARD vs noted heent- nc/at, eomi, anicteric neck supple lungs -good air movement b/l heart-reg abd soft, + bs ext Rt BKA, no LLE neuro- a,a, o x 3 LUE AVF w/ thrill Data : 01/03/22 04:38 01/03/22 04:38 A&P Assessment and plan (1) ESRD on hemodialysis: 56 yr old female 1. ESRD- s/p HD x 2 days -phos binders 2. htn- stable. cont meds and dialysis 3. monitor tsh 4. dm control 5.anemia- iron studies and TRISH 6. CHF - w/ preserved EF monitor w/ dialysis 7. CT scan c/w volume overload- pt prefers not to have extra HD today renal okay for d/c w/ outpt HD seen and examined w/ RN -telehealth visit time spent 30 min Status: Acute Plan see above Attestations Medical Necessity Statement*: per medicine Time Spent in Patient Care: 16 - 35 minutes (>than 50% of time spent in counselling and/or direct pt care on unit). Coding Level of Care Code Acute Cyber Incident Handler for Chg Fwd Diagnoses ESRD on hemodialysis N18.6; Z99.2
--- NOTE | 2022-01-03 09:41 | P.DS_ITS ---
Discharge Providers Date of Admission: 01/01/22 16:00 Date of Discharge: January 03, 2022 Attending Provider at Admission: Daksha Burdick MD Attending Provider at Discharge: Daksha Burdick MD Primary Care Provider: Jacob Sharp DO Diagnoses at Discharge Discharge Diagnosis (1) ESRD on hemodialysis: Status: Acute Reason for Visit Reason for Visit: SOB Hospital Course Hospital Course 56-year-old female who present to the hospital for worsening shortness of breath. She missed her hemodialysis session and presented to the hospital with worsening shortness of breath. She was diuresed aggressively for 2 consecutive days which improved her symptoms. At home she does have BiPAP, uses 2 L of oxygen at baseline. Postdialysis we were able to bring her oxygen down from 5 L to baseline of 2 L. No changes were made in her home medications. There was concern for pneumonia however CT scan of chest consistent with pulm edema. She was treated empirically with antibiotics. However no leukocytosis or fever. She will not be given antibiotics at the time of discharge. Physical Exam Narrative: Patient is laying supine No audible stridor or wheezing No significant volume overload clinically Patient clinically looks slightly better Abdomen soft Left arm AV fistula Awake and alert Nonfocal neuro exam Currently on2 L ? Discharge Data Studies Completed and Pending Completed Studies During Hospitalization Category Date Time Status CT chest wo con [id number] Routine Cat Scan 01/01/22 17:52 Completed XR chest 1V portable [id number] Stat Exams 01/01/22 13:29 Completed Pending at discharge Category Date Time Status Complete Blood Count w/Auto AM LABS Lab 01/04/22 04:00 Ordered Comprehensive Metabolic Panel AM LABS Lab 01/04/22 04:00 Ordered Magnesium AM LABS Lab 01/04/22 04:00 Ordered Phosphorus AM LABS Lab 01/04/22 04:00 Ordered Radiology Impressions Chest X-Ray 01/01/22 13:29 IMPRESSION: 1. Cardiac enlargement with signs of congestive heart failure and pleural effusion. 2. Extensive infiltrates in the mid and lower lung zones bilaterally. Superimposed pneumonia could have this appearance. Chest CT 01/01/22 17:52 IMPRESSION: 1. Fluid overload features with bilateral pleural effusions. 2. Parenchymal airspace opacities are nonspecific and could reflect atypical pulmonary edema, nonspecific pneumonitis changes, bronchiolitis, atypical pneumonia. The lower lobe opacities may represent pneumonia or atelectasis. Laboratory Results WBC 4.6 10^3/uL (4.0-10.0) 01/03/22 04:38 RBC 3.15 10^6/uL (4.1-5.3) L 01/03/22 04:38 Hgb 9.7 g/dL (11.5-15.3) L 01/03/22 04:38 Hct 30.7 % (37.0-47.0) L 01/03/22 04:38 MCV 97.5 fl (81-99) 01/03/22 04:38 MCH 30.8 pg (28.0-34.0) 01/03/22 04:38 MCHC 31.6 g/dL (30.0-36.0) 01/03/22 04:38 RDW 14.2 % (12.1-15.1) 01/03/22 04:38 Plt Count 162 10^3/cmm (130-400) 01/03/22 04:38 MPV 11.6 fL (7.4-10.4) H 01/03/22 04:38 Neut % (Auto) 68.2 % 01/03/22 04:38 Lymph % (Auto) 12.7 % 01/03/22 04:38 [place] % (Auto) 10.3 % 01/03/22 04:38 Eos % (Auto) 7.7 % 01/03/22 04:38 Baso % (Auto) 0.7 % 01/03/22 04:38 Neut # (Auto) 3.12 10^3/uL (1.8-7.7) 01/03/22 04:38 Lymph # (Auto) 0.6 10^3/uL (0.8-4.8) L 01/03/22 04:38 [place] # (Auto) 0.5 10^3/uL (0.2-0.9) 01/03/22 04:38 Eos # (Auto) 0.4 10^3/uL (0.0-0.8) 01/03/22 04:38 Baso # (Auto) 0.0 10^3/uL (0.0-0.1) 01/03/22 04:38 Nucleated RBC % (auto) 0 % 01/03/22 04:38 Nucleated RBCs # 0.0 /100WBC 01/03/22 04:38 Specimen Type Arterial 01/01/22 14:57 Sample Site Brachial, right 01/01/22 14:57 ABG pH 7.36 (7.35-7.45) 01/01/22 14:57 ABG pCO2 44.4 mmHg (35-45) 01/01/22 14:57 ABG pO2 66.6 mmHg (80.0-100.0) L 01/01/22 14:57 ABG HCO3 25.0 mmol/L (22-26) 01/01/22 14:57 ABG O2 Saturation 89.8 01/01/22 14:57 ABG Base Excess -0.6 mmol/L (-2.0-2.0) 01/01/22 14:57 Jason Test Pos 01/01/22 14:57 A-a O2 Gradient 3.7 mmHg (5-10) L 01/01/22 14:57 Hematocrit 33.2 % (37-47) L 01/01/22 14:57 Hgb O2 Saturation 88.6 % (95-100) L 01/01/22 14:57 Carboxyhemoglobin 0.2 %THgb (0.4-20.1) L 01/01/22 14:57 Methemoglobin 1.2 % (0.4-1.5) 01/01/22 14:57 Total Hemoglobin 10.8 g/dL (12-16) L 01/01/22 14:57 Sodium 139.0 mmol/L (131-143) 01/01/22 14:57 Potassium 4.6 mmol/L (3.5-5.0) 01/01/22 14:57 Glucose 121.0 mg/dL (70-115) H 01/01/22 14:57 Ionized Calcium 1.1 mmol/L (1.1-1.4) 01/01/22 14:57 O2 Delivery Device Nc 01/01/22 14:57 O2 Liters/Min 2.0 % 01/01/22 14:57 Human Factors Ergonomist ID Cak 01/01/22 14:57 Sodium 137 mmol/L (136-145) 01/03/22 04:38 Potassium 4.2 mmol/L (3.5-5.1) 01/03/22 04:38 Chloride 97 mmol/L (98-107) L 01/03/22 04:38 Carbon Dioxide 29 mmol/L (22-29) 01/03/22 04:38 Anion Gap 15.2 (5-19) 01/03/22 04:38 BUN 24 mg/dL (6-20) H 01/03/22 04:38 Creatinine 4.1 mg/dL (0.5-0.9) H 01/03/22 04:38 GFR Calculation 11.2 mL/min (90-130) L 01/03/22 04:38 Glucose 128 mg/dL (65-115) H 01/03/22 04:38 POC Glucose 104 mg/dL (70-110) 01/03/22 05:58 Calculated Osmolality 290 mOsm/kg (285-295) 01/03/22 04:38 Calcium 8.8 mg/dL (8.5-10.5) 01/03/22 04:38 Phosphorus 4.7 mg/dL (2.5-4.5) H 01/03/22 04:38 Magnesium 2.0 mg/dL (1.7-2.3) 01/03/22 04:38 Iron 54 ug/dL (37-145) 01/03/22 04:38 TIBC 142 mcg/dl 01/03/22 04:38 % Saturation 38.0 % (20-50) 01/03/22 04:38 Unsat Iron Binding 88 ug/dL (112-347) L 01/03/22 04:38 Ferritin 944 ng/mL (15-150) H 01/03/22 04:38 Total Bilirubin 0.4 mg/dL (0.15-1.2) 01/03/22 04:38 AST 11 U/L (0-32) 01/03/22 04:38 ALT 9 U/L (0-33) 01/03/22 04:38 Alkaline Phosphatase 80 IU/L (35-105) 01/03/22 04:38 NT-Pro-B Natriuret Pep 48711 pg/mL (0-125) H 01/01/22 14:25 Total Protein 6.1 g/dL (6.6-8.7) L 01/03/22 04:38 Albumin 3.1 g/dL (3.5-5.2) L 01/03/22 04:38 Globulin 3.0 g/dL (1.3-4.6) 01/03/22 04:38 25-OH Vitamin D Total 32 ng/mL (30-100) 01/03/22 04:38 TSH 14.23 uIU/mL (0.27-4.20) H 01/03/22 04:38 PTH Intact 239.5 pg/mL (15-65) H 01/03/22 04:38 Calcium (PTH Intact) 8.7 mg/dL (8.5-10.5) 01/03/22 04:38 Hep Bs Antigen Non-reactive (Nonreactive) 01/01/22 14:25 Hep Bs Antibody 38.4 (11.5-1000) 01/01/22 14:25 Hepatitis C Antibody Non-reactive (Nonreactive) 01/01/22 14:25 Vitals Last Vital Signs Temp 98.5 F 01/03/22 04:00 Pulse 75 01/03/22 08:00 Resp 15 01/03/22 08:00 BP 154/67 01/03/22 08:00 Pulse Ox 95 01/03/22 08:00 O2 Del Method 01/03/22 08:00 O2 Flow Rate 3.5 01/03/22 08:00 FiO2 40 01/03/22 01:22 Discharge Plan Discharge Patient Disposition: Home Condition: Stable Prescriptions: Continued escitalopram oxalate 20 mg tablet 20 mg PO DAILY cyclobenzaprine 10 mg tablet 10 mg PO TID PRN (Reason: muscle spasm) Qty: 30 2RF pantoprazole 40 mg tablet,delayed release (DR/EC) 40 mg PO DAILY@08 Qty: 90 3RF (DME) pen needle, diabetic [ReliOn Pen [place]] 32 gauge x 5/32 needle See Rx Instructions .ROUTE .MEDSUPPLY Qty: 100 6RF Rx Instructions: use for insulin injections (DME) PROSTHETIC SUPPLIES See Rx Instructions .Route .MEDSUPPLY Qty: 1 0RF Rx Instructions: As directed levothyroxine [Euthyrox] 150 mcg tablet 150 mcg PO QAM Qty: 90 3RF amlodipine 10 mg tablet 10 mg PO DAILY Qty: 90 1RF atorvastatin 40 mg tablet 40 mg PO DAILY@20 Qty: 90 3RF clonazepam 0.25 mg tablet,disintegrating 0.25 mg PO BID PRN (Reason: Anxiety) Qty: 30 0RF aspirin 81 mg Tablet,Chewable 81 mg PO DAILY@08 Hold Instructions: Resume on 10/24/21. cholecalciferol (vitamin D3) [Vitamin D3] 25 mcg (1,000 unit) Tablet 25 mcg PO DAILY@08 omega 7-wku-ixw-fish oil [Fish Oil] 300-1,000 mg Capsule,Delayed Release(Dr/Ec) 1 cap PO BID@08,20 Glucosamine Chondroitin 550-30-1 mg Capsule 1 cap PO DAILY hydralazine 100 mg tablet 100 mg PO BID isosorbide mononitrate 60 mg tablet extended release 24 hr 60 mg PO DAILY ketorolac 0.5 % drops 1 drp ophthalmic (eye) QID prednisolone acetate 1 % drops,suspension 1 drp ophthalmic (eye) QID Dialyvite 100-1 mg tablet 1 tab PO DAILY insulin glargine [Lantus Solostar U-100 Insulin] 100 unit/mL (3 mL) insulin pen 5 unit SUBCUT BID@08,20 Qty: 15 12RF sertraline 50 mg tablet 50 mg PO DAILY Discharge Orders: Discharge Order (Routine); Ordered 01/03/22 Ordered By: Daksha Burdick Referrals: Jacob Sharp DO [Primary Care Provider] - 2 weeks (Please call Wednesday to schedule a follow up appointment.) Discharge Diet: Cardiac Patient Instructions: Dyspnea, Hyperkalemia, Heart Failure (ED), CHF Stoplight, Opioid Safety Discharge Attestations Time Spent in Discharge Care*: less than 30 min Status at Discharge: Cognitive status at discharge: cognitively intact , Beh avioral status at discharge: cooperative , Quality Metrics Clinical Quality Measures [ No reported AMI, CVA or VTE this stay] Coding Level of Care Code Acute Chg FW DC note Diagnoses ESRD on hemodialysis N18.6; Z99.2
== END 2022-01-03 11:54 | disposition home or self-care (01) ==
LOC: ER 15:00 → MEDSURG 23:15
PROVIDERS: Internal Medicine Nephrology; Admitting Provider Internal Medicine; Emergency Provider Family Medicine; PCP Family Medicine; Visit Provider Internal Medicine
DX: N18.6 End stage renal disease (principal); Z99.2 Dependence on renal dialysis; E11.22 Type 2 diabetes mellitus with diabetic chronic kidney disease; I13.2 Hypertensive heart and chronic kidney disease with heart failure and with stage 5 chronic kidney disease, or end stage renal disease; I50.9 Heart failure, unspecified; N18.9 Chronic kidney disease, unspecified; D63.1 Anemia in chronic kidney disease; Z79.82 Long term (current) use of aspirin; Z79.4 Long term (current) use of insulin; I25.10 Atherosclerotic heart disease of native coronary artery without angina pectoris; K21.9 Gastro-esophageal reflux disease without esophagitis; E78.2 Mixed hyperlipidemia; G47.33 Obstructive sleep apnea (adult) (pediatric); Z86.73 Personal history of transient ischemic attack (TIA), and cerebral infarction without residual deficits; R09.02 Hypoxemia; Z99.81 Dependence on supplemental oxygen; Z91.19 Patient's noncompliance with other medical treatment and regimen; F41.9 Anxiety disorder, unspecified; F32.A Depression, unspecified; G54.6 Phantom limb syndrome with pain; R42 Dizziness and giddiness; E03.9 Hypothyroidism, unspecified
CPT/HCPCS: 36415; 36416; 36600; 71045; 71250; 80051; 80053; 82306; 82310; 82330; 82728; 82805; 82962; 83540; 83550; 83735; 83880; 83970; 84100; 84443; 85025; 86706; 86803; 87340; 94660; 94664; 96372; 99285; G0378; J0696; J1644; Q3014; Q4081

== ENCOUNTER 2022-01-26 15:42 | Emergency (ER) | payer MEDICARE, MEDICAID, SELFPAY ==
[2022-01-26 16:03] VITALS: BP 130/72; PULSE 71; RESP 16; TEMP 36.7; O2SAT 95; BMI 31.4
--- NOTE | 2022-01-26 16:41 | XRR_ITS ---
PROCEDURE INFORMATION: Exam: XR Lumbosacral Spine Exam date and time: 01/26/2022 4:57 PM Age: 56 years old Clinical indication: Injury or trauma; Fall; Blunt trauma (contusions or hematomas); Additional info: Fall pain TECHNIQUE: Imaging protocol: Radiologic exam of the lumbosacral spine. Views: 2 or 3 views. COMPARISON: CT abdomen pelvis wo con [id number] 12/07/2020 2:36 PM FINDINGS: Bones/joints: Normal. No acute fracture. Normal alignment. Soft tissues: Unremarkable. Vasculature: Scattered vascular calcifications. XR/XR lumbar spine 2-3V* [id number] IMPRESSION: Negative for fracture or dislocation.
--- NOTE | 2022-01-26 17:14 | W.ED.BACK ---
HPI - Back Pain/Injury General: Chief Complaint: Back Pain/Injury Stated Complaint: FALL LAST WEEK/ BACK PAIN Time Seen by Provider: 01/26/22 16:40 Source: patient Mode of arrival: ambulatory Limitations: no limitations History of Present Illness: 56-year-old female presents emergency room complaint of back pain for the last week since she fell in the bathtub. He did strike her head she got knocked out he complains of lumbar back pain. MD elicited complaint: back pain Pertinent past history: recent trauma Onset (ago): week(s) (1) Timing: constant Severity: moderate Quality: aching Location: lumbar spine Radiation: none Exacerbating factors: none Relieving factors: none Associated symptoms: Deny abdominal pain, arthralgias, chills, change in bowel habits, difficulty walking, fatigue, fecal incontinence, fever(s), myalgias, nausea, numbness, syncope, tingling/numbness/burning, urinary frequency, vomiting or weakness Review of Systems Const: Denies: fever(s), chills, fatigue or malaise ENMT: Denies: throat pain, ear or mastoid pain, nasal discharge or nasal congestion Card: Denies: chest pain, palpitations or syncope Resp: Denies: dyspnea, productive cough or non-productive cough GI: Denies: abdominal pain, nausea, vomiting, fecal incontinence or change in bowel habits Musc: Reports: back pain Skin/Breast: Denies: rash or pruritus Neuro: Denies: difficulty walking PFSH ED PFSH: Medical History Acute dyspnea Acute hyperkalemia Adjustment disorder with mixed disturbance of emotions and conduct Anemia in chronic kidney disease Anxiety Anxiety and depression BPPV (benign paroxysmal positional vertigo) CAD (coronary artery disease) Carotid stenosis 04/2020: Right < 50%, Left near 70% CHF exacerbation Chronic diastolic CHF (congestive heart failure) 12/2020 EF 55%, grade II/IV diastolic dysfunction Chronic kidney disease Chronic left sacroiliac joint pain CKD (chronic kidney disease) stage 5, GFR less than 15 ml/min Claustrophobia Compressive atelectasis Congestive heart failure Diabetes mellitus Diabetes mellitus, with long-term current use of insulin Diverticulitis Elevated troponin End stage renal disease End-stage renal disease (ESRD) ESBL (extended spectrum beta-lactamase) producing bacteria infection ESRD (end stage renal disease) on dialysis ESRD on hemodialysis DAILY (generalized anxiety disorder) Gastroparesis GERD (gastroesophageal reflux disease) Gram-negative bacteremia Hemodialysis catheter dysfunction HTN (hypertension) Hyperlipidemia Hypocalcemia due to chronic kidney disease Hypothyroidism Hypoxemia Light headedness Lumbar back pain Major depression, recurrent Mixed dyslipidemia DOROTEO on CPAP PAD (peripheral artery disease) Partial nontraumatic amputation of left foot (~06/2019) Peripheral vascular disease Peritonitis associated with peritoneal dialysis Phantom pain Pneumonia due to COVID-19 virus (~12/2020) Positive cardiac stress test Sleep apnea Suicidal ideation TIA (transient ischemic attack) Vitamin D deficiency Surgical History AV (arteriovenous fistula) (~10/2020) H/O hysterectomy with oophorectomy History of appendectomy History of cataract surgery History of heart artery stent PCI to LAD, done in [place], [place] 10/2018 ENRIQUE to mid LAD at [facility] 04/2020 History of hysterectomy History of left heart catheterization 04/2020 Findings: 1. There is severe coronary artery disease. 2. FFR of mid LAD was 0.76. 3. Severe OM 2 stenosis. However this is a small sized distal vessel. 4. Mid Left Anterior Descending Coronary Artery was treated with Balloon and Drug Eluting Stent History of right below knee amputation Peritoneal dialysis catheter in place Removed due to recurrent peritonitis S/P cholecystectomy S/P hemodialysis catheter insertion S/P PICC central line placement (~2019) Status post amputation of toe Family History Denies family history of CAD (coronary artery disease) Clotting disorder Dementia Bleeding disorder Social History Smoking and tobacco status: never smoked Alcohol intake: never Household members: spouse and family History of recent travel: No Physical Exam Const: GENERAL APPEARANCE: cooperative and comfortable ORIENTATION/CONSCIOUSNESS: Yes awake, Yes oriented to person, Yes oriented to place and Yes oriented to time HENMT: COMMON NORMALS: normocephalic, atraumatic, hearing grossly normal bilaterally and external ears normal HEAD & SCALP: normocephalic and atraumatic EXTERNAL EAR: Yes external ears normal Eye: COMMON NORMALS: Equal, round and reactive pupils present, EOMs intact bilaterally, conjunctivae normal and no scleral icterus CONJUNCTIVA: Yes conjunctivae normal PUPIL: Yes Equal, round and reactive pupils present Neck/C-Spine: COMMON NORMALS: full ROM, no lymphadenopathy, supple and no JVD Lymph: LYMPHATIC: no lymphadenopathy noted and no lymphedema noted Resp: COMMON NORMALS: normal respiratory effort, No retractions, No use of accessory muscles and clear to auscultation bilaterally AUSCULTATION: clear to auscultation bilaterally Cardio: COMMON NORMALS: no JVD, regular rate, regular rhythm and No murmurs present (Cardio) RATE: regular rate RHYTHM: regular rhythm GI: COMMON NORMALS: Soft to palpation and No hepatosplenomegaly present AUSCULTATION: Yes normoactive bowel sounds PALPATION: Yes Soft to palpation, No Tenderness to palpation present (GI), No Guarding due to palpation present (GI) and Yes No hepatosplenomegaly present Back/Pelvis: OTHER: Tenderness along a left paraspinal muscles lumbar region no ecchymosis no abrasions Extremity: COMMON NORMALS: normal to inspection, capillary refill normal, no clubbing, cyanosis or edema, no calf tenderness and no pedal edema Neuro: SENSORIUM/ORIENTATION: Yes oriented to person, Yes oriented to place and Yes oriented to time Skin: COMMON NORMALS: no rashes or lesions noted GENERAL SKIN EXAM: no rashes or lesions noted Course Vital Signs: Vital signs: Vital Signs Temperature 98.0 F 01/26/22 16:03 Pulse Rate 71 01/26/22 16:03 Respiratory Rate 16 01/26/22 16:03 Blood Pressure 130/72 01/26/22 16:03 Pulse Oximetry 95 01/26/22 16:03 Oxygen Delivery Sd thod 01/26/22 16:03 MDM - Back Pain/Injury Medical Decision Making Plain films do not show any acute fracture. Treat with supportive cares discharge home follow-up primary care Medical Records I reviewed the patient's medical records. Discharge Plan Discharge Patient Disposition: Home Clinical Impression: Strain of lumbar region Condition: Stable Prescriptions: New tizanidine 4 mg capsule 4 mg PO Q6H PRN (Reason: muscle spasticity) Qty: 20 0RF Rx Instructions: do not exceed 3 doses per 24 hrs tramadol 50 mg tablet 50 mg PO Q8H PRN (Reason: pain) Qty: 10 0RF No Action escitalopram oxalate 20 mg tablet 20 mg PO DAILY cyclobenzaprine 10 mg tablet 10 mg PO TID PRN (Reason: muscle spasm) Qty: 30 2RF pantoprazole 40 mg tablet,delayed release (DR/EC) 40 mg PO DAILY@08 Qty: 90 3RF (DME) pen needle, diabetic [ReliOn Pen [place]] 32 gauge x 5/32 needle See Rx Instructions .ROUTE .MEDSUPPLY Qty: 100 6RF Rx Instructions: use for insulin injections (DME) PROSTHETIC SUPPLIES See Rx Instructions .Route .MEDSUPPLY Qty: 1 0RF Rx Instructions: As directed levothyroxine [Euthyrox] 150 mcg tablet 150 mcg PO QAM Qty: 90 3RF atorvastatin 40 mg tablet 40 mg PO DAILY@20 Qty: 90 3RF clonazepam 0.25 mg tablet,disintegrating 0.25 mg PO BID PRN (Reason: Anxiety) Qty: 30 0RF amlodipine 10 mg tablet 10 mg PO DAILY Qty: 90 1RF aspirin 81 mg Tablet,Chewable 81 mg PO DAILY@08 Hold Instructions: Resume on 10/24/21. cholecalciferol (vitamin D3) [Vitamin D3] 25 mcg (1,000 unit) Tablet 25 mcg PO DAILY@08 omega 1-usl-zfy-fish oil [Fish Oil] 300-1,000 mg Capsule,Delayed Release(Dr/Ec) 1 cap PO BID@,20 Glucosamine Chondroitin 550-30-1 mg Capsule 1 cap PO DAILY hydralazine 100 mg tablet 100 mg PO BID isosorbide mononitrate 60 mg tablet extended release 24 hr 60 mg PO DAILY ketorolac 0.5 % drops 1 drp ophthalmic (eye) QID prednisolone acetate 1 % drops,suspension 1 drp ophthalmic (eye) QID Dialyvite 100-1 mg tablet 1 tab PO DAILY insulin glargine [Lantus Solostar U-100 Insulin] 100 unit/mL (3 mL) insulin pen 5 unit SUBCUT BID@08,20 Qty: 15 12RF sertraline 50 mg tablet 50 mg PO DAILY Discharge Orders: Discharge ED (Routine); Ordered 01/26/22 Ordered By: Karan Daniels Referrals: Jacob Sharp DO [Primary Care Provider] - Patient Instructions: Opioid Safety Coding Level of Care Code ED Dietitian Helper for Chg [facility]
== END 2022-01-26 18:00 | disposition home or self-care (01) ==
PROVIDERS: Emergency Provider Family Medicine; PCP Family Medicine
DX: S39.012A Strain of muscle, fascia and tendon of lower back, initial encounter (principal); Z79.82 Long term (current) use of aspirin; Z79.4 Long term (current) use of insulin; I25.10 Atherosclerotic heart disease of native coronary artery without angina pectoris; I13.2 Hypertensive heart and chronic kidney disease with heart failure and with stage 5 chronic kidney disease, or end stage renal disease; E11.22 Type 2 diabetes mellitus with diabetic chronic kidney disease; N18.6 End stage renal disease; I50.32 Chronic diastolic (congestive) heart failure; E78.2 Mixed hyperlipidemia; Z86.73 Personal history of transient ischemic attack (TIA), and cerebral infarction without residual deficits; Z89.511 Acquired absence of right leg below knee; Z99.2 Dependence on renal dialysis; W18.2XXA Fall in (into) shower or empty bathtub, initial encounter
CPT/HCPCS: 72100; 99283

== ENCOUNTER 2022-02-02 11:26 | Inpatient (IN) | payer MEDICARE, MEDICAID, SELFPAY ==
[2022-02-02] VITALS (22 sets, daily range): BP systolic 136–187; BP diastolic 74–82; PULSE 70–80; RESP 6–26; TEMP 36.6–36.7; O2SAT 84–95; BMI 30.7
--- NOTE | 2022-02-02 11:37 | CT_ITS ---
WS: [id number] CT ABDOMEN AND PELVIS WITH CONTRAST HISTORY: Nausea and vomiting. Short of breath. Generalized weakness. Dialysis patient. TECHNIQUE: Imaging performed of the abdomen and pelvis with IV contrast. Single phase imaging of the abdomen. Coronal and sagittal reformats are submitted. All CT scans at [facility] use at [address] one of these dose optimization techniques: automated exposure control; mA and/or kV adjustment per patient size (includes targeted exams where dose is matched to clinical indication); or iterative re construction. IV CONTRAST: Omnipaque 350; 80 mL IV. Oral contrast: No DLP: 879.35 mGy.cm COMPARISON: 12/07/2020 Lower thorax: Small bilateral pleural effusions, LEFT greater than RIGHT. Bilateral lower lobe partia l atelectasis. Heart is normal size. No hiatal hernia. Liver/biliary system: Normal size liver. Very mild central bile duct dilatation is probably physiolog ic. Gallbladder: Status post cholecystectomy. Pancreas: Normal size pancreas and pancreatic duct. No adjacent inflammation. Spleen: Normal size spleen. No mass or infarct. Adrenal glands: Normal. Right kidney: Mild atrophy and perinephric stranding. No obstruction. Vascular calcifications. Left kidney: Mild atrophy. No obstruction or mass. Vascular calcifications. Aorta: Moderate atherosclerosis aorta. No aneurysm. There is extensive calcification throughout the s plenic and mesenteric arteries. Lymphadenopathy: None. Free fluid: None. GI tract: Nondistended stomach. No small bowel or colon obstruction. Prior appendectomy. Abdominal wall: Diffuse soft tissue anasarca. Ventral abdominal wall hernia contains fat. Pelvis: Prior hysterectomy. Minimally distended urinary bladder. No free fluid or adenopathy. Bones: Unremarkable. CT/CT abdomen pelvis w con* [id number] IMPRESSION: 1. Small bilateral pleural effusions and bibasilar atelectasis. 2. Diffuse soft tissue anasarca. 3. Extensive vascular calcifications. 4. No GI tract ischemic disease or obstruction. 5. Ventral abdominal wall hernia.
--- NOTE | 2022-02-02 11:37 | XR_ITS ---
WS: [id number] Exam: XR knee LT 3V* [id number] Date/Time of Exam: 02/02/2022 11:45 AM Reason For Exam: fall Comparison 05/03/2019. No acute fracture or dislocation. Small effusion in the suprapatellar bursa. Joint compartments are r elatively well maintained. Vascular calcifications noted in the posterior soft tissues. XR/XR knee LT 3V* [id number] IMPRESSION: 1. No fracture or dislocation. Minimal joint effusion.
--- NOTE | 2022-02-02 11:40 | W.ED.NAVMDI ---
Documented by User: Kael Mensah MD 02/02/22 16:24 HPI - Nausea/Vomiting/Diarrhea General: Chief complaint: Fall Stated complaint: FALL Time Seen by Provider: 02/02/22 11:33 History of Present Illness: 56-year-old presents due to nausea and nonbloody nonbilious emesis and left knee pain after mechanical fall earlier today. States she was transferring to the bathroom. Denies any head injury headache or neck pain. Denies any focal numbness weakness or tingling. On arrival saturating 84% on room air. Patient is normally on home oxygen and is saturating well on her baseline home rate. Denies any chest pain or shortness of breath. She denies any abdominal pain. Denies any dysuria or urethral discharge. Review of Systems Narrative: - CONSTITUTIONAL: Denies weight loss, fever and chills. - HEENT: Denies changes in vision and hearing. - RESPIRATORY: Denies SOB and cough. - CV: Denies palpitations and CP. - GI: As above - : Denies dysuria and urinary frequency. - MSK: As above - SKIN: Denies rash and pruritus. - NEUROLOGICAL: Denies headache, weakness, numbness and syncope. - PSYCHIATRIC: Denies suicidal ideation PFSH ED PFSH: Medical History Acute dyspnea Acute hyperkalemia Adjustment disorder with mixed disturbance of emotions and conduct Anemia in chronic kidney disease Anxiety Anxiety and depression BPPV (benign paroxysmal positional vertigo) CAD (coronary artery disease) Carotid stenosis 04/2020: Right < 50%, Left near 70% CHF exacerbation Chronic diastolic CHF (congestive heart failure) 12/2020 EF 55%, grade II/IV diastolic dysfunction Chronic kidney disease Chronic left sacroiliac joint pain CKD (chronic kidney disease) stage 5, GFR less than 15 ml/min Claustrophobia Compressive atelectasis Congestive heart failure Diabetes mellitus Diabetes mellitus, with long-term current use of insulin Diverticulitis Elevated troponin End stage renal disease End-stage renal disease (ESRD) ESBL (extended spectrum beta-lactamase) producing bacteria infection ESRD (end stage renal disease) on dialysis DAILY (generalized anxiety disorder) Gastroparesis GERD (gastroesophageal reflux disease) Gram-negative bacteremia Hemodialysis catheter dysfunction HTN (hypertension) Hyperlipidemia Hypocalcemia due to chronic kidney disease Hypothyroidism Hypoxemia Light headedness Lumbar back pain Major depression, recurrent Mixed dyslipidemia Noncompliance DOROTEO on CPAP PAD (peripheral artery disease) Partial nontraumatic amputation of left foot (~06/2019) Peripheral vascular disease Peritonitis associated with peritoneal dialysis Phantom pain Pneumonia due to COVID-19 virus (~12/2020) Positive cardiac stress test Sleep apnea Suicidal ideation TIA (transient ischemic attack) Vitamin D deficiency Surgical History AV (arteriovenous fistula) (~10/2020) H/O hysterectomy with oophorectomy History of appendectomy History of cataract surgery History of heart artery stent PCI to LAD, done in [place], [place] 10/2018 ENRIQUE to mid LAD at [facility] 04/2020 History of hysterectomy History of left heart catheterization 04/2020 Findings: 1. There is severe coronary artery disease. 2. FFR of mid LAD was 0.76. 3. Severe OM 2 stenosis. However this is a small sized distal vessel. 4. Mid Left Anterior Descending Coronary Artery was treated with Balloon and Drug Eluting Stent History of right below knee amputation Peritoneal dialysis catheter in place Removed due to recurrent peritonitis S/P cholecystectomy S/P hemodialysis catheter insertion S/P PICC central line placement (~2019) Status post amputation of toe Family History Denies family history of CAD (coronary artery disease) Clotting disorder Dementia Bleeding disorder Social History Smoking and tobacco status: never smoked Alcohol intake: never Household members: spouse and family History of recent travel: No Physical Exam Narrative: EXAM NARRATIVE: - GENERAL: Alert and oriented x 3. No acute distress. Well-nourished. - EYES: EOMI. Anicteric. - HENT: Atraumatic, no C-spine tenderness. Moist mucous membranes. No scleral icterus. No cervical lymphadenopathy. - LUNGS: Clear to auscultation bilaterally. No accessory muscle use. Equal lung sounds bilaterally. No respiratory distress. On nasal cannula. - CARDIOVASCULAR: Regular rate and rhythm. No murmur. No JVD. - ABDOMEN: Soft, non-tender and non-distended. Negative CVA tenderness bilaterally, no rebound or guarding, negative Call sign. No palpable masses. - EXTREMITIES: Right [id number] amputation, left knee tenderness. No bony ligamentous laxity. Compartments are soft. Extremities neurovascularly intact. - SKIN: No rashes or lesions. Warm. - NEUROLOGIC: No meningismus or focal neurological deficits. CN II-XII grossly intact. - PSYCHIATRIC: Cooperative. Appropriate mood and affect. Course Vital Signs: Vital signs: Vital Signs Temperature 98.1 F 02/03/22 08:00 Pulse Rate 62 02/03/22 08:59 Respiratory Rate 22 H 02/03/22 08:32 Blood Pressure 160/77 02/03/22 08:00 Pulse Oximetry 95 02/03/22 08:59 Oxygen Delivery Me thod 02/03/22 08:32 Oxygen Flow Rate 4 02/03/22 08:32 Fraction of Inspir ed Oxygen 50 02/03/22 08:59 MDM - Nausea/Vomiting/Diarrhea Medical Decision Making 56-year-old presents due to nausea and nonbloody nonbilious emesis as well as left knee pain after fall. Extremities neurovascularly intact, x-rays do not reveal any fracture or dislocation. CT of the abdomen pelvis does not reveal any sign of obstruction or other acute abnormality. Patient was difficult to access and required central line placement due to inability to place peripheral IVs for medications and blood draws. However of concern is that she continues to desaturate despite being on maximal home oxygen demands. She is normally on 2 to 3 L by nasal cannula but he requires up to 4 L with oxygen saturation in the 90-91 range. EKG does not reveal any acute ischemic change. Troponin elevation is at her baseline and she does not complain of any chest pain or shortness of breath. At this time she does not appear fluid overloaded. COVID swab ordered. Remainder of lab work and imaging reviewed. Discussed with hospitalist and they agreed patient would benefit from admission. Patient admitted in stable condition. Further evaluation management per hospitalist team. Lab Data : 02/03/22 04:51 02/03/22 04:51 Radiology Impressions Abdomen/Pelvis CT 02/02/22 11:37 IMPRESSION: 1. Small bilateral pleural effusions and bibasilar atelectasis. 2. Diffuse soft tissue anasarca. 3. Extensive vascular calcifications. 4. No GI tract ischemic disease or obstruction. 5. Ventral abdominal wall hernia. Knee X-Ray 02/02/22 11:37 IMPRESSION: 1. No fracture or dislocation. Minimal joint effusion. Chest X-Ray 02/02/22 14:15 IMPRESSION: 1. Left-sided IJ central line ending in the lower one third of the SVC in good position. No other significant change in the overall appearance the chest since the latest study on the same day. Laboratory Results WBC 6.9 10^3/uL (4.0-10.0) 02/02/22 14:21 RBC 3.40 10^6/uL (4.1-5.3) L 02/02/22 14:21 Hgb 10.4 g/dL (11.5-15.3) L 02/02/22 14:21 Hct 32.7 % (37.0-47.0) L 02/02/22 14:21 MCV 96.2 fl (81-99) 02/02/22 14:21 MCH 30.6 pg (28.0-34.0) 02/02/22 14:21 MCHC 31.8 g/dL (30.0-36.0) 02/02/22 14:21 RDW 14.6 % (12.1-15.1) 02/02/22 14:21 Plt Count 196 10^3/cmm (130-400) 02/02/22 14:21 MPV 10.5 fL (7.4-10.4) H 02/02/22 14:21 Neut % (Auto) 81.0 % 02/02/22 14:21 Lymph % (Auto) 8.6 % 02/02/22 14:21 Pacific % (Auto) 6.1 % 02/02/22 14:21 Eos % (Auto) 3.3 % 02/02/22 14:21 Baso % (Auto) 0.7 % 02/02/22 14:21 Neut # (Auto) 5.58 10^3/uL (1.8-7.7) 02/02/22 14:21 Lymph # (Auto) 0.6 10^3/uL (0.8-4.8) L 02/02/22 14:21 Pacific # (Auto) 0.4 10^3/uL (0.2-0.9) 02/02/22 14:21 Eos # (Auto) 0.2 10^3/uL (0.0-0.8) 02/02/22 14:21 Baso # (Auto) 0.1 10^3/uL (0.0-0.1) 02/02/22 14:21 Nucleated RBC % (auto) 0 % 02/02/22 14:21 Nucleated RBCs # 0.0 /100WBC 02/02/22 14:21 Sodium 137 mmol/L (136-145) 02/02/22 14:21 Potassium 3.5 mmol/L (3.5-5.1) 02/02/22 14:21 Chloride 97 mmol/L (98-107) L 02/02/22 14:21 Carbon Dioxide 26 mmol/L (22-29) 02/02/22 14:21 Anion Gap 17.5 (5-19) 02/02/22 14:21 BUN 26 mg/dL (6-20) H 02/02/22 14:21 Creatinine 6.3 mg/dL (0.5-0.9) H* 02/02/22 14:21 GFR Calculation 6.8 mL/min (90-130) L 02/02/22 14:21 Glucose 87 mg/dL (65-115) 02/02/22 14:21 Calculated Osmolality 288 mOsm/kg (285-295) 02/02/22 14:21 Lactate 0.4 mmol/L (0.5-2.2) L 02/02/22 14:21 Calcium 9.4 mg/dL (8.5-10.5) 02/02/22 14:21 Iron 31 ug/dL (37-145) L 02/02/22 14:26 TIBC 186 mcg/dl 02/02/22 14:26 % Saturation 16.6 % (20-50) L 02/02/22 14:26 Unsat Iron Binding 155 ug/dL (112-347) 02/02/22 14:26 Total Bilirubin 0.5 mg/dL (0.15-1.2) 02/02/22 14:21 AST 12 U/L (0-32) 02/02/22 14:21 ALT 8 U/L (0-33) 02/02/22 14:21 Alkaline Phosphatase 92 U/L (35-105) 02/02/22 14:21 Troponin T Gen 5 ng/L 117 ng/L (0-10) H* 02/02/22 14:21 Total Protein 6.5 g/dL (6.6-8.7) L 02/02/22 14:21 Albumin 3.7 g/dL (3.5-5.2) 02/02/22 14:21 Globulin 2.8 g/dL (1.3-4.6) 02/02/22 14:21 Lipase 18 U/L (13-60) 02/02/22 14:21 Vitamin B12 529 pg/mL (232-1245) 02/02/22 14:26 Folate 12.2 ng/mL (4.8-37.3) 02/02/22 14:26 Procalcitonin 0.18 ng/mL (0-0.5) 02/02/22 14:26 TSH 6.15 uIU/mL (0.27-4.20) H 02/02/22 14:26 Hep Bs Antigen Non-reactive (Nonreactive) 02/02/22 14:26 Hep Bs Antigen Non-reactive (Nonreactive) 02/02/22 14:26 Hep Bs Antibody 26.0 (11.5-1000) 02/02/22 14:26 Hepatitis C Antibody Non-reactive (Nonreactive) 02/02/22 14:26 EKG Data EKG 1: Other EKG comments: Sinus rhythm, rate of 70, no sign of acute ischemia or other acute abnormality. Discharge Plan Discharge Patient Disposition: Admitted As Inpatient Admit Provider: Flash Luciano Clinical Impression: End-stage renal disease needing dialysis, Acute exacerbation of CHF (congestive heart failure) Condition: Stable Coding Level of Care Code ED Software Product Specialist for Chg Fwd Documented by User: Karan Daniels DO 02/03/22 09:32 HPI - Nausea/Vomiting/Diarrhea General: Chief complaint: Fall Stated complaint: FALL Time Seen by Provider: 02/02/22 11:33 PFSH ED PFSH: Medical History Acute dyspnea Acute hyperkalemia Adjustment disorder with mixed disturbance of emotions and conduct Anemia in chronic kidney disease Anxiety Anxiety and depression BPPV (benign paroxysmal positional vertigo) CAD (coronary artery disease) Carotid stenosis 04/2020: Right < 50%, Left near 70% CHF exacerbation Chronic diastolic CHF (congestive heart failure) 12/2020 EF 55%, grade II/IV diastolic dysfunction Chronic kidney disease Chronic left sacroiliac joint pain CKD (chronic kidney disease) stage 5, GFR less than 15 ml/min Claustrophobia Compressive atelectasis Congestive heart failure Diabetes mellitus Diabetes mellitus, with long-term current use of insulin Diverticulitis Elevated troponin End stage renal disease End-stage renal disease (ESRD) ESBL (extended spectrum beta-lactamase) producing bacteria infection ESRD (end stage renal disease) on dialysis DAILY (generalized anxiety disorder) Gastroparesis GERD (gastroesophageal reflux disease) Gram-negative bacteremia Hemodialysis catheter dysfunction HTN (hypertension) Hyperlipidemia Hypocalcemia due to chronic kidney disease Hypothyroidism Hypoxemia Light headedness Lumbar back pain Major depression, recurrent Mixed dyslipidemia Noncompliance DOROTEO on CPAP PAD (peripheral artery disease) Partial nontraumatic amputation of left foot (~06/2019) Peripheral vascular disease Peritonitis associated with peritoneal dialysis Phantom pain Pneumonia due to COVID-19 virus (~12/2020) Positive cardiac stress test Sleep apnea Suicidal ideation TIA (transient ischemic attack) Vitamin D deficiency Surgical History AV (arteriovenous fistula) (~10/2020) H/O hysterectomy with oophorectomy History of appendectomy History of cataract surgery History of heart artery stent PCI to LAD, done in [place], [place] 10/2018 ENRIQUE to mid LAD at [facility] 04/2020 History of hysterectomy History of left heart catheterization 04/2020 Findings: 1. There is severe coronary artery disease. 2. FFR of mid LAD was 0.76. 3. Severe OM 2 stenosis. However this is a small sized distal vessel. 4. Mid Left Anterior Descending Coronary Artery was treated with Balloon and Drug Eluting Stent History of right below knee amputation Peritoneal dialysis catheter in place Removed due to recurrent peritonitis S/P cholecystectomy S/P hemodialysis catheter insertion S/P PICC central line placement (~2019) Status post amputation of toe Family History Denies family history of CAD (coronary artery disease) Clotting disorder Dementia Bleeding disorder Social History Smoking and tobacco status: never smoked Alcohol intake: never Household members: spouse and family History of recent travel: No Procedures Central Line Placement Left IJ: Time Out Performed: Yes Patient Placed on Monitor/Pulse Ox: Yes MD Prep: mask, gown and gloves Central Line Prep: Chlorhexidine scrub Local Anesthetic: lidocaine 1% Amount of anesthesia used (mL): 7 Ultrasound Used for Placement: Yes Central Line Lumen Inserted: triple Post Procedure: sutured in place, good blood return, all ports aspirated, flushed, capped and sterile dressing applied Post Procedure X-Ray: tip of catheter in good position Patient Tolerated Procedure: well Complications: none Additional Comments: Initially attempted a left subclavian was able to cannulate the vessel with the needle but the wire would not advance. And change instead went to the left IJ cannulated advanced the wire without any difficulty. Triple-lumen central line placed without difficulty all ports terra and flushed. Course Vital Signs: Vital signs: Vital Signs Temperature 98.1 F 02/03/22 08:00 Pulse Rate 62 02/03/22 08:59 Respiratory Rate 22 H 02/03/22 08:32 Blood Pressure 160/77 02/03/22 08:00 Pulse Oximetry 95 02/03/22 08:59 Oxygen Delivery Me thod 02/03/22 08:32 Oxygen Flow Rate 4 02/03/22 08:32 Fraction of Inspir ed Oxygen 50 02/03/22 08:59 MDM - Nausea/Vomiting/Diarrhea Medical Decision Making 56-year-old presents due to nausea and nonbloody nonbilious emesis as well as left knee pain after fall. Extremities neurovascularly intact, x-rays do not reveal any fracture or dislocation. CT of the abdomen pelvis does not reveal any sign of obstruction or other acute abnormality. Patient was difficult to access and required central line placement due to inability to place peripheral IVs for medications and blood draws. However of concern is that she continues to desaturate despite being on maximal home oxygen demands. She is normally on 2 to 3 L by nasal cannula but he requires up to 4 L with oxygen saturation in the 90-91 range. EKG does not reveal any acute ischemic change. Troponin elevation is at her baseline and she does not complain of any chest pain or shortness of breath. At this time she does not appear fluid overloaded. COVID swab ordered. Remainder of lab work and imaging reviewed. Discussed with hospitalist and they agreed patient would benefit from admission. Patient admitted in stable condition. Further evaluation management per hospitalist team. I was consulted for placement of central line. See central line in the procedure note does not participate in the care otherwise at this patient is managed by Dr. Lenin Epperson Lab Data : 02/03/22 04:51 02/03/22 04:51 Radiology Impressions Abdomen/Pelvis CT 02/02/22 11:37 IMPRESSION: 1. Small bilateral pleural effusions and bibasilar atelectasis. 2. Diffuse soft tissue anasarca. 3. Extensive vascular calcifications. 4. No GI tract ischemic disease or obstruction. 5. Ventral abdominal wall hernia. Knee X-Ray 02/02/22 11:37 IMPRESSION: 1. No fracture or dislocation. Minimal joint effusion. Chest X-Ray 02/02/22 14:15 IMPRESSION: 1. Left-sided IJ central line ending in the lower one third of the SVC in good position. No other significant change in the overall appearance the chest since the latest study on the same day. Laboratory Results WBC 6.9 10^3/uL (4.0-10.0) 02/02/22 14: RBC 3.40 10^6/uL (4.1-5.3) L 02/02/22 14:21 Hgb 10.4 g/dL (11.5-15.3) L 02/02/22 14:21 Hct 32.7 % (37.0-47.0) L 02/02/22 14:21 MCV 96.2 fl (81-99) 02/02/22 14:21 MCH 30.6 pg (28.0-34.0) 02/02/22 14:21 MCHC 31.8 g/dL (30.0-36.0) 02/02/22 14:21 RDW 14.6 % (12.1-15.1) 02/02/22 14:21 Plt Count 196 10^3/cmm (130-400) 02/02/22 14:21 MPV 10.5 fL (7.4-10.4) H 02/02/22 14:21 Neut % (Auto) 81.0 % 02/02/22 14:21 Lymph % (Auto) 8.6 % 02/02/22 14:21 Pacific % (Auto) 6.1 % 02/02/22 14:21 Eos % (Auto) 3.3 % 02/02/22 14:21 Baso % (Auto) 0.7 % 02/02/22 14:21 Neut # (Auto) 5.58 10^3/uL (1.8-7.7) 02/02/22 14:21 Lymph # (Auto) 0.6 10^3/uL (0.8-4.8) L 02/02/22 14:21 Pacific # (Auto) 0.4 10^3/uL (0.2-0.9) 02/02/22 14:21 Eos # (Auto) 0.2 10^3/uL (0.0-0.8) 02/02/22 14:21 Baso # (Auto) 0.1 10^3/uL (0.0-0.1) 02/02/22 14:21 Nucleated RBC % (auto) 0 % 02/02/22 14:21 Nucleated RBCs # 0.0 /100WBC 02/02/22 14:21 Sodium 137 mmol/L (136-145) 02/02/22 14:21 Potassium 3.5 mmol/L (3.5-5.1) 02/02/22 14:21 Chloride 97 mmol/L (98-107) L 02/02/22 14:21 Carbon Dioxide 26 mmol/L (22-29) 02/02/22 14:21 Anion Gap 17.5 (5-19) 02/02/22 14:21 BUN 26 mg/dL (6-20) H 02/02/22 14:21 Creatinine 6.3 mg/dL (0.5-0.9) H* 02/02/22 14:21 GFR Calculation 6.8 mL/min (90-130) L 02/02/22 14:21 Glucose 87 mg/dL (65-115) 02/02/22 14:21 Calculated Osmolality 288 mOsm/kg (285-295) 02/02/22 14:21 Lactate 0.4 mmol/L (0.5-2.2) L 02/02/22 14:21 Calcium 9.4 mg/dL (8.5-10.5) 02/02/22 14:21 Iron 31 ug/dL (37-145) L 02/02/22 14:26 TIBC 186 mcg/dl 02/02/22 14:26 % Saturation 16.6 % (20-50) L 02/02/22 14:26 Unsat Iron Binding 155 ug/dL (112-347) 02/02/22 14:26 Total Bilirubin 0.5 mg/dL (0.15-1.2) 02/02/22 14:21 AST 12 U/L (0-32) 02/02/22 14:21 ALT 8 U/L (0-33) 02/02/22 14:21 Alkaline Phosphatase 92 U/L (35-105) 02/02/22 14:21 Troponin T Gen 5 ng/L 117 ng/L (0-10) H* 02/02/22 14:21 Total Protein 6.5 g/dL (6.6-8.7) L 02/02/22 14:21 Albumin 3.7 g/dL (3.5-5.2) 02/02/22 14:21 Globulin 2.8 g/dL (1.3-4.6) 02/02/22 14:21 Lipase 18 U/L (13-60) 02/02/22 14:21 Vitamin B12 529 pg/mL (232-1245) 02/02/22 14:26 Folate 12.2 ng/mL (4.8-37.3) 02/02/22 14:26 Procalcitonin 0.18 ng/mL (0-0.5) 02/02/22 14:26 TSH 6.15 uIU/mL (0.27-4.20) H 02/02/22 14:26 Hep Bs Antigen Non-reactive (Nonreactive) 02/02/22 14:26 Hep Bs Antigen Non-reactive (Nonreactive) 02/02/22 14:26 Hep Bs Antibody 26.0 (11.5-1000) 02/02/22 14:26 Hepatitis C Antibody Non-reactive (Nonreactive) 02/02/22 14:26 Discharge Plan Discharge Patient Disposition: Admitted As Inpatient Admit Provider: Flash Luciano Clinical Impression: End-stage renal disease needing dialysis, Acute exacerbation of CHF (congestive heart failure) Condition: Stable Coding Level of Care Code ED Software Product Specialist for Maris Braden
--- NOTE | 2022-02-02 11:42 | ECG_ITS ---
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 Measurements Intervals [place] Rate: 70 P: 109 MN: 205 QRS: -46 QRSD: 96 T: 66 QT: 343 QTc: 371 Interpretive Statements SINUS RHYTHM LEFT AXIS DEVIATION [QRS AXIS < -30] POSSIBLE ANTERIOR MYOCARDIAL INFARCTION , OF INDETERMINATE AGE [30 ms Q WAVE IN V3/V4, OR R < 0.2 mV IN V4] Compared to ECG 12/15/2021 17:12:03 No significant changes Electronically Signed On 02-02-2022 14:00:45 CDT by Manny Tan M.D. [id number]
--- NOTE | 2022-02-02 12:52 | XR_ITS ---
WS: [id number] Exam: XR chest 1V portable [id number] Date/Time of Exam: 02/02/2022 12:53 PM Reason For Exam: sob Comparison 01/01/2022. Prominent left-sided pleural effusion noted with compressive atelectasis of the upper and lower lobes of the left lung. The heart is enlarged. Small right-sided pleural effusion is noted. The mediastinu m and osseous thorax are unremarkable. Monitoring leads superimpose the chest. Signs of coronary patricia ry stenting. XR/XR chest 1V portable [id number] IMPRESSION: 1. Prominent left-sided pleural effusion with compressive atelectasis of the up per and lower lobes the left lung. 2. Cardiac enlargement. 3. Small right-sided pleural effusion.
--- NOTE | 2022-02-02 14:15 | XR_ITS ---
WS: [id number] Exam: XR chest 1V [id number] Date/Time of Exam: 02/02/2022 2:15 PM Reason For Exam: Central line placement Comparison made with the most recent exam on the same day at 0118 p.M. A left-sided IJ catheter has been placed and ends in the lower one third of the SVC in satisfactory p osition. Again noted is large left-sided pleural effusion with compressive atelectasis of the lower a nd upper lobes of the left lung. The heart remains enlarged. Small right pleural effusion. XR/XR chest 1V [id number] IMPRESSION: 1. Left-sided IJ central line ending in the lower one third of the SVC in good position. No other significant change in the overall appearance the chest since the latest study on the same day.
[2022-02-02 14:47] LABS: Basophils # 0.1 10^3/uL (0.0-0.1); Basophils % 0.7 %; Eosinophils # 0.2 10^3/uL (0.0-0.8); Eosinophils % 3.3 %; Hematocrit 32.7 % (37.0-47.0); Hemoglobin 10.4 g/dL (11.5-15.3); Lymphocytes # 0.6 10^3/uL (0.8-4.8); Lymphocytes % 8.6 %; Mean Corpuscular HGB Conc 31.8 g/dL (30.0-36.0); Mean Corpuscular Hemoglobin 30.6 pg (28.0-34.0); Mean Corpuscular Volume 96.2 fl (81-99); Mean Platelet Volume 10.5 fL (7.4-10.4); Monocytes # 0.4 10^3/uL (0.2-0.9); Monocytes % 6.1 %; Neutrophils # 5.58 10^3/uL (1.8-7.7); Nucleated Red Blood Cells % 0 %; Platelet Count 196 10^3/cmm (130-400); Red Cell Distribution Width 14.6 % (12.1-15.1); White Blood Count 6.9 10^3/uL (4.0-10.0)
[2022-02-02] MEDS: fentaNYL 50 mcg/mL INJ 2mL IVP (14:47)
[2022-02-02] MEDS: sodium chloride 0.9% 500 ML 999 ML IV (14:49)
[2022-02-02] MEDS: iohexol 350 mg/mL 100 mL Btl IV (14:53)
[2022-02-02 15:09] LABS: Alanine Aminotransferase 8 U/L (0-33); Albumin Level 3.7 g/dL (3.5-5.2); Alkaline Phosphatase 92 U/L (35-105); Anion Gap 17.5 (5-19); Aspartate Amino Transferase 12 U/L (0-32); Blood Urea Nitrogen 26 mg/dL (6-20); Calcium 9.4 mg/dL (8.5-10.5); Carbon Dioxide 26 mmol/L (22-29); Chloride 97 mmol/L (98-107); Globulin 2.8 g/dL (1.3-4.6); Glomerular Filtration Rate 6.8 mL/min (90-130); Glucose 87 mg/dL (65-115); Lipase 18 U/L (13-60); Osmolality Calculated 288 mOsm/kg (285-295); Potassium 3.5 mmol/L (3.5-5.1); Sodium 137 mmol/L (136-145); Total Bilirubin 0.5 mg/dL (0.15-1.2); Total Protein 6.5 g/dL (6.6-8.7)
[2022-02-02 15:10] LABS: Lactate (Lactic Acid level) 0.4 mmol/L (0.5-2.2)
[2022-02-02 15:17] LABS: Troponin T (5th) Once 117 ng/L (0-10)
--- NOTE | 2022-02-02 16:46 | P.HP_ITS ---
Providers/Chief Complaint Primary Care Provider: Jacob Sharp DO Chief Complaint: FALL History of Present Illness Rizwana Herzog is a 56 year old female with past medical history patient renal disease on hemodialysis, noncompliance, multiple admissions because of missed dialysis, diastolic heart failure, COPD, obstructive sleep apnea presented to the ER today due to fall while she was trying to get out of bed to wheelchair to go to bathroom. Post fall she is been complaining of knee pain. As per patient she has been having episodes of diarrhea for the last 2 days. Denies any fever, nausea, vomiting. Patient is supposed to have her dialysis today but has not been able to go for dialysis because of the fall. Currently patient is complaining of shortness of breath more than usual. At baseline patient uses 2 L of oxygen supplementation. Patient was having recurrent episodes of hypoxia on her baseline oxygenation and hospital service was asked for admission. Review of Systems General: Reports: 10 or more systems reviewed and unremarkable except in HPI and below Const: Denies: fever(s), chills, body aches, change in appetite, change in weight, malaise, night sweats, diaphoresis, change in sleep pattern, daytime sleepiness or snoring Eyes: Denies: change in vision, blurry vision, photophobia, eye discomfort or eye discharge ENMT: Denies: throat pain, enlarged tonsils, hoarseness, mouth pain, oral sores, dry mouth, tinnitus, nasal congestion or post nasal drip Card: Denies: chest pain, palpitations, irregular heart rhythm, edema, swelling of feet/ankles, lightheadedness, syncope, pre-syncope, dyspnea on exertion, orthopnea, leg pain with exertion or acrocyanosis Resp: Denies: dyspnea, productive cough, non-productive cough, wheezing, stridor, pain on inspiration, change in phlegm color, hemoptysis or chest congestion GI: Denies: abdominal pain, nausea, vomiting, hematemesis, coffee ground emesis, dysphagia, heartburn, diarrhea, constipation, bloating, GI cramping, change in bowel habits, pain on defecation, hematochezia or melena : Denies: flank pain, dysuria, urinary frequency, urinary urgency, urinary hesitancy, nocturia or hematuria Musc: Denies: neck pain, back pain, extremity pain, joint pain, joint swelling, joint redness, joint stiffness or limited range of motion Neuro: Denies: headache(s), numbness in extremities, weakness in extremities, sensory changes, lack of coordination, difficulty walking, frequent falls, dizziness, vertigo, confusion, Slurred speech present, difficulty communicating thoughts or seizure-like activity Psych: Denies: anxiety, depression, mood swings, panic attacks, hopelessness or irritability Endo: Denies: polyuria, polydipsia, tired all the time, cold intolerance, excessive sweating, flushing or heat intolerance Refugio/Lymph: Denies: easy bruising or easy bleeding All/Imm: Denies: tongue swelling, facial swelling or acute wheezing Medications/Allergies Home Medications Medication Instructions Recorded Confirmed Last Taken Type aspirin 81 mg chewable tablet 81 mg PO DAILY@06/25/19 02/02/22 02/01/22 H istory omega 7-mxq-bgo-fish oil 300 1 cap PO BID@01/17/20 02/02/22 02/01/22 History mg-1,000 mg capsule,delayed release (Fish Oil) cholecalciferol (vitamin D3) 25 25 mcg PO DAILY@05/14/20 02/02/22 02/02/22 History mcg (1,000 unit) tablet (Vitamin D3) pantoprazole 40 mg tablet,delayed 40 mg PO DAILY@ #90 tabs 04/02/21 02/02/22 02/01/22 Rx release pen needle, diabetic 32 gauge x #100 ea 06/17/21 02/02/22 Unknown Rx (ReliOn Pen [place]) escitalopram oxalate 20 mg tablet 20 mg PO DAILY 07/22/21 02/02/22 02/01/22 History PROSTHETIC SUPPLIES #1 ea 08/21/21 02/02/22 Unknown Rx vitamin B complex-vitamin C 100 1 tab PO DAILY 09/02/21 02/02/22 02/01/22 History mg-folic acid 1 mg tablet (Dialyvite) insulin glargine 100 unit/mL (3 5 unit (0.05 mL) SUBCUT BID@09/05/21 02/02/22 02/01/22 Rx mL) subcutaneous pen (Lantus #15 mL Solostar U-100 Insulin) glucosamine sulf dipot 1 cap PO DAILY 09/22/21 02/02/2202/01/22 History chlr,msm,chond 550 mg-C 30 mg-janet 1 mg capsule (Glucosamine Chondroitin) levothyroxine 150 mcg tablet 150 mcg PO QAM #90 tabs 11/04/21 02/02/22 02/01/22 Rx (Euthyrox) cyclobenzaprine 10 mg tablet 10 mg PO TID PRN muscle spasm #30 11/13/21 02/02/22 02/01/22 Rx tabs hydralazine 100 mg tablet 100 mg PO BID 11/28/21 02/02/22 02/01/22 History isosorbide mononitrate 60 mg 60 mg PO DAILY 12/15/21 02/02/22 02/01/22 History tablet,extended release 24 hr ketorolac 0.5 % eye drops 1 drp ophthalmic (eye) QID 12/15/21 02/02/22 02/01/22 History prednisolone acetate 1 % eye 1 drp ophthalmic (eye) QID 12/15/21 02/02/22 02/01/22 History drops,suspension atorvastatin 40 mg tablet 40 mg PO DAILY@20 #90 tabs 12/17/21 02/02/22 02/01/22 Rx clonazepam 0.25 mg disintegrating 0.25 mg PO BID PRN Anxiety #30 tabs 12/18/21 02/02/22 01/01/22 Rx tablet sertraline 50 mg tablet 50 mg PO DAILY 01/01/22 02/02/22 02/01/22 History amlodipine 10 mg tablet 10 mg PO DAILY #90 tabs 01/22/22 02/02/22 02/01/22 Rx tizanidine 4 mg capsule 4 mg PO Q6H PRN muscle spasticity 01/26/22 02/02/22 Unknown Rx #20 caps tramadol 50 mg tablet 50 mg PO Q8H PRN pain #10 tabs 01/26/22 02/02/22 02/01/22 Rx carvedilol 12.5 mg tablet 12.5 mg PO BID 02/02/22 02/02/22 02/01/22 History lactulose 10 gram/15 mL oral 10 g PO DAILY PRN Constipation 02/02/22 02/02/22 Unknown History solution (Constulose) Allergies Allergy/AdvReac Type Severity Reaction Status Date / Time metformin [From Glucophage] Allergy Severe Unknown Verified 02/02/22 13:28 venlafaxine [From Effexor] Allergy Severe ADR-Shakine Verified 02/02/22 13:28 PFSH Acute PFSH: Medical History Acute dyspnea Acute hyperkalemia Adjustment disorder with mixed disturbance of emotions and conduct Anemia in chronic kidney disease Anxiety Anxiety and depression BPPV (benign paroxysmal positional vertigo) CAD (coronary artery disease) Carotid stenosis 04/2020: Right < 50%, Left near 70% CHF exacerbation Chronic diastolic CHF (congestive heart failure) 12/2020 EF 55%, grade II/IV diastolic dysfunction Chronic kidney disease Chronic left sacroiliac joint pain CKD (chronic kidney disease) stage 5, GFR less than 15 ml/min Claustrophobia Compressive atelectasis Congestive heart failure Diabetes mellitus Diabetes mellitus, with long-term current use of insulin Diverticulitis Elevated troponin End stage renal disease End-stage renal disease (ESRD) ESBL (extended spectrum beta-lactamase) producing bacteria infection ESRD (end stage renal disease) on dialysis DAILY (generalized anxiety disorder) Gastroparesis GERD (gastroesophageal reflux disease) Gram-negative bacteremia Hemodialysis catheter dysfunction HTN (hypertension) Hyperlipidemia Hypocalcemia due to chronic kidney disease Hypothyroidism Hypoxemia Light headedness Lumbar back pain Major depression, recurrent Mixed dyslipidemia Noncompliance DOROTEO on CPAP PAD (peripheral artery disease) Partial nontraumatic amputation of left foot (~06/2019) Peripheral vascular disease Peritonitis associated with peritoneal dialysis Phantom pain Pneumonia due to COVID-19 virus (~12/2020) Positive cardiac stress test Sleep apnea Suicidal ideation TIA (transient ischemic attack) Vitamin D deficiency Surgical History AV (arteriovenous fistula) (~10/2020) H/O hysterectomy with oophorectomy History of appendectomy History of cataract surgery History of heart artery stent PCI to LAD, done in [place], [place] 10/2018 ENRIQUE to mid LAD at [facility] 04/2020 History of hysterectomy History of left heart catheterization 04/2020 Findings: 1. There is severe coronary artery disease. 2. FFR of mid LAD was 0.76. 3. Severe OM 2 stenosis. However this is a small sized distal vessel. 4. Mid Left Anterior Descending Coronary Artery was treated with Balloon and Drug Eluting Stent History of right below knee amputation Peritoneal dialysis catheter in place Removed due to recurrent peritonitis S/P cholecystectomy S/P hemodialysis catheter insertion S/P PICC central line placement (~2019) Status post amputation of toe Family History Denies family history of CAD (coronary artery disease) Clotting disorder Dementia Bleeding disorder Social History Smoking and tobacco status: never smoked Alcohol intake: never Household members: spouse and family History of recent travel: No Vitals/I&O/Wt Last Vital Signs Temp 98.1 F 02/02/22 11:27 Pulse 72 02/02/22 16:00 Resp 22 H 02/02/22 16:00 BP 187/77 02/02/22 15:30 Pulse Ox 89 L 02/02/22 16:00 O2 Del Method 02/02/22 11:27 O2 Flow Rate 4 02/02/22 15:30 Weight last 48 hrs Weight 83.915 kg Physical Exam Narrative: General: No acute distress, AO x3, on nasal cannula, morbidly obese HEENT: PERRLA, pupils bilaterally equal and reactive Chest: Normal vesicular breath sounds, no added sounds, equal good air entry bilaterally CVS: S1-S2 regular, no murmurs, no tachycardia, no gallops, no rubs Abdomen: Soft, nontender, no organomegaly, bowel sounds present Neuro: No focal deficits, no facial deformity, AO x3, power 5/5 in all limbs Data : 02/02/22 14:21 02/02/22 14:21 A&P Assessment and plan (1) End-stage renal disease needing dialysis: Status: Acute (2) Acute exacerbation of CHF (congestive heart failure): Status: Acute (3) Noncompliance: Status: Acute (4) Missed dialysis: Status: Acute (5) Shortness of breath: Status: Acute (6) Diarrhea: Status: Acute (7) Chronic diastolic CHF (congestive heart failure): Status: Acute (8) DOROTEO on CPAP: Status: Acute Plan Shortness of breath: Most likely secondary to acute on chronic diastolic congestive heart failure in setting of missed hemodialysis and end-stage renal disease. Cannot rule out underlying pneumonia. Check sputum culture, procalcitonin, flu swab, COVID-19 PCR. MRSA PCR in the past negative. Last CT scan done in December 2021. Hold off on further imaging for now. Chest x- ray negative for consolidation for now. Hold off on starting antibiotics. Nephrology consult for hemodialysis. Will reevaluate shortness of breath post hemodialysis. CPAP for obstructive sleep apnea Oxygen supplementation keeping saturation over 88%. Diarrhea: Check stool studies to rule out C. difficile. Hypertension: Goal blood pressure less than 140/90 on Hg. Continue multiple home antihypertensives. Continue other chronic medication including amlodipine, aspirin, atorvastatin, carvedilol, Celexa, hydralazine, isosorbide, levothyroxine, Protonix, sertraline, tramadol. Full code. Renal dialysis diet. Heparin 5000 every 12 hourly. Protonix OPD prophylaxis. Attestations Medical Necessity Statement*: Admission for more than 2 midnights for management of shortness of breath secondary to possible congestive heart failure while pneumonia is ruled out in a patient with end-stage renal disease on hemodialysis with history of noncompliance and missed dialysis Time Spent in Patient Care: Greater than 35 minutes Coding Level of Care Code Acute Project Controls Scheduler for Chg Fwd Diagnoses End-stage renal disease needing dialysis N18.6; Z99.2 Acute exacerbation of CHF (congestive heart failure) I50.9 Noncompliance Z91.19 Missed dialysis Shortness of breath R06.02 Diarrhea R19.7 Chronic diastolic CHF (congestive heart failure) I50.32 DOROTEO on CPAP G47.33; Z99.89
[2022-02-02 17:53] LABS: Procalcitonin 0.18 ng/mL (0-0.5); Thyroid Stimulating Hormone 6.15 uIU/mL (0.27-4.20); Vitamin B12 529 pg/mL (232-1245)
[2022-02-02 17:54] LABS: Folate Level 12.2 ng/mL (4.8-37.3)
[2022-02-02 18:05] LABS: Iron 31 ug/dL (37-145); Percent Saturation 16.6 % (20-50); Total Iron Binding Capacity 186 mcg/dl; Unsaturated Iron Binding 155 ug/dL (112-347)
[2022-02-02 18:20] LABS: Adenovirus Not Detected (NOT DETECT); Chlamydia Pneumoniae Not Detected (NOT DETECT); Coronavirus 229E,HKU1,NL63,OC4 Not Detected (NOT DETECT); Human Metapneumovirus Not Detected (NOT DETECT); Human Rhinovirus/Enterovirus Not Detected (NOT DETECT); Influenza A Not Detected (NOT DETECT); Influenza A H1 Not Detected (NOT DETECT); Influenza A H1-2009 Not Detected (NOT DETECT); Influenza A H3 Not Detected (NOT DETECT); Influenza B Not Detected (NOT DETECT); Mycoplasma Pneumoniae Not Detected (NOT DETECT); Parainfluenza Virus Type 1 Not Detected (NOT DETECT); Parainfluenza Virus Type 2 Not Detected (NOT DETECT); Parainfluenza Virus Type 3 Not Detected (NOT DETECT); Parainfluenza Virus Type 4 Not Detected (NOT DETECT); Respiratory Syncytial Virus A Not Detected (NOT DETECT); Respiratory Syncytial Virus B Not Detected (NOT DETECT); SARS-COV-2 Not Detected (NOT DETECT)
--- NOTE | 2022-02-02 18:41 | PC.NURSE ---
Report received from the ER at this time. I then gave report to Bernadine GORDON rn shift mgr.
[2022-02-02] MEDS: morphine 4 mg/mL SDV 1 mL 2 MG IVP (18:46)
[2022-02-02 19:14] LABS: Results from Genmark
[2022-02-02] MEDS: ondansetron 2 mg/ML SDV 2 mL 4 MG IVP (20:27)
--- NOTE | 2022-02-02 20:34 | PM.CONSULT ---
Providers/Reason For Consult Consulting Physician/Specialty*: Ashleigh Scruggs DO, telenephrology Reason for Consult*: pulmonary edema, ESRD Attending Physician: Flash Luciano MD Primary Care Provider: Jacob Sharp DO History of Present Illness History of Present Illness Rizwana Herzog is a 56 year old female presented to ER with worsening shortness of breath. Has O2 at home. Last HD WednesdayFebruary 02, was changing to //Wed treatments this week so did not go to dialysis today Review of Systems Narrative: weak Resp: Reports: dyspnea GI: Reports: nausea and vomiting Medications/Allergies Home Medications Medication Instructions Recorded Confirmed Last Taken Type aspirin 81 mg chewable tablet 81 mg PO DAILY@06/25/19 02/02/22 02/01/22 History omega 8-tng-mve-fish oil 300 1 cap PO BID@01/17/20 02/02/22 02/01/22 History mg-1,000 mg capsule,delayed release (Fish Oil) cholecalciferol (vitamin D3) 25 25 mcg PO DAILY@05/14/20 02/02/22 02/02/22 History mcg (1,000 unit) tablet (Vitamin D3) pantoprazole 40 mg tablet,delayed 40 mg PO DAILY@ #90 tabs 04/02/21 02/02/22 02/01/22 Rx release pen needle, diabetic 32 gauge x #100 ea 06/17/21 02/02/22 Unknown Rx 5/32 (ReliOn Pen [place]) escitalopram oxalate 20 mg tablet 20 mg PO DAILY 07/22/21 02/02/22 02/01/22 History PROSTHETIC SUPPLIES #1 ea 08/21/21 02/02/22 Unknown Rx vitamin B complex-vitamin C 100 1 tab PO DAILY 09/02/21 02/02/22 02/01/22 History mg-folic acid 1 mg tablet (Dialyvite) insulin glargine 100 unit/mL (3 5 unit (0.05 mL) SUBCUT BID@09/05/21 02/02/22 02/01/22 Rx mL) subcutaneous pen (Lantus #15 mL Solostar U-100 Insulin) glucosamine sulf dipot 1 cap PO DAILY 09/22/21 02/02/22 02/01/22 History chlr,msm,chond 550 mg-C 30 mg-janet 1 mg capsule (Glucosamine Chondroitin) levothyroxine 150 mcg tablet 150 mcg PO QAM #90 tabs 11/04/21 02/02/22 02/01/22 Rx (Euthyrox) cyclobenzaprine 10 mg tablet 10 mg PO TID PRN muscle spasm #30 11/13/21 02/02/22 02/01/22 Rx tabs hydralazine 100 mg tablet 100 mg PO BID 11/28/21 02/02/22 02/01/22 History isosorbide mononitrate 60 mg 60 mg PO DAILY 12/15/21 02/02/22 02/01/22 History tablet,extended release 24 hr ketorolac 0.5 % eye drops 1 drp ophthalmic (eye) QID 12/15/21 02/02/22 02/01/22 History prednisolone acetate 1 % eye 1 drp ophthalmic (eye) QID 12/15/21 02/02/22 02/01/22 History drops,suspension atorvastatin 40 mg tablet 40 mg PO DAILY@20 #90 tabs 12/17/21 02/02/22 02/01/22 Rx clonazepam 0.25 mg disintegrating 0.25 mg PO BID PRN Anxiety #30 tabs 12/18/21 02/02/22 01/01/22 Rx tablet sertraline 50 mg tablet 50 mg PO DAILY 01/01/22 02/02/22 02/01/22 History amlodipine 10 mg tablet 10 mg PO DAILY #90 tabs 01/22/22 02/02/22 02/01/22 Rx tizanidine 4 mg capsule 4 mg PO Q6H PRN muscle spasticity 01/26/22 02/02/22 Unknown Rx #20 caps tramadol 50 mg tablet 50 mg PO Q8H PRN pain #10 tabs 01/26/22 02/02/22 02/01/22 Rx carvedilol 12.5 mg tablet 12.5 mg PO BID 02/02/22 02/02/22 02/01/22 History lactulose 10 gram/15 mL oral 10 g PO DAILY PRN Constipation 02/02/22 02/02/22 Unknown History solution (Constulose) Allergies Allergy/AdvReac Type Severity Reaction Status Date / Time metformin [From Glucophage] Allergy Severe Unknown Verified 02/02/22 13:28 venlafaxine [From Effexor] Allergy Severe ADR-Shakine Verified 02/02/22 13:28 ss Current Medications Generic Name Dose Route Start Last Admin Trade Name Freq PRN Reason Stop Dose Admin Ondansetron HCl 4 mg 02/02/22 19:16 02/02/22 20:27 Ondansetron 2 Mg/Ml Sdv 2 Ml IVP 4 mg Q8H PRN Administration vomiting, or N/V if npo PFSH Acute PFSH: Medical History Acute dyspnea Acute hyperkalemia Adjustment disorder with mixed disturbance of emotions and conduct Anemia in chronic kidney disease Anxiety Anxiety and depression BPPV (benign paroxysmal positional vertigo) CAD (coronary artery disease) Carotid stenosis 04/2020: Right < 50%, Left near 70% CHF exacerbation Chronic diastolic CHF (congestive heart failure) 12/2020 EF 55%, grade II/IV diastolic dysfunction Chronic kidney disease Chronic left sacroiliac joint pain CKD (chronic kidney disease) stage 5, GFR less than 15 ml/min Claustrophobia Compressive atelectasis Congestive heart failure Diabetes mellitus Diabetes mellitus, with long-term current use of insulin Diverticulitis Elevated troponin End stage renal disease End-stage renal disease (ESRD) ESBL (extended spectrum beta-lactamase) producing bacteria infection ESRD (end stage renal disease) on dialysis DAILY (generalized anxiety disorder) Gastroparesis GERD (gastroesophageal reflux disease) Gram-negative bacteremia Hemodialysis catheter dysfunction HTN (hypertension) Hyperlipidemia Hypocalcemia due to chronic kidney disease Hypothyroidism Hypoxemia Light headedness Lumbar back pain Major depression, recurrent Mixed dyslipidemia Noncompliance DOROTEO on CPAP PAD (peripheral artery disease) Partial nontraumatic amputation of left foot (~06/2019) Peripheral vascular disease Peritonitis associated with peritoneal dialysis Phantom pain Pneumonia due to COVID-19 virus (~12/2020) Positive cardiac stress test Sleep apnea Suicidal ideation TIA (transient ischemic attack) Vitamin D deficiency Surgical History AV (arteriovenous fistula) (~10/2020) H/O hysterectomy with oophorectomy History of appendectomy History of cataract surgery History of heart artery stent PCI to LAD, done in [place], [place] 10/2018 ENRIQUE to mid LAD at [facility] 04/2020 History of hysterectomy History of left heart catheterization 04/2020 Findings: 1. There is severe coronary artery disease. 2. FFR of mid LAD was 0.76. 3. Severe OM 2 stenosis. However this is a small sized distal vessel. 4. Mid Left Anterior Descending Coronary Artery was treated with Balloon and Drug Eluting Stent History of right below knee amputation Peritoneal dialysis catheter in place Removed due to recurrent peritonitis S/P cholecystectomy S/P hemodialysis catheter insertion S/P PICC central line placement (~2019) Status post amputation of toe Family History Denies family history of CAD (coronary artery disease) Clotting disorder Dementia Bleeding disorder Social History Smoking and tobacco status: never smoked Alcohol intake: never Household members: spouse and family History of recent travel: No Vitals/I&O/Wt Last Vital Signs Temp 98 F 02/02/22 20:00 Pulse 80 02/02/22 20:00 Resp 20 H 02/02/22 20:00 BP 136/75 02/02/22 20:00 Pulse Ox 92 02/02/22 20:00 O2 Del Method 02/02/22 11:27 O2 Flow Rate 4 02/02/22 18:30 Weight last 48 hrs Weight 83.915 kg Physical Exam Extremity: NARRATIVE EXTREMITY EXAM: left arm AVF Data : 02/02/22 14:21 02/02/22 14:21 Micro: Microbiology 02/02/22 17:17 Blood Culture - Preliminary Blood SPECIMEN COLLECTED 02/02/22 17:12 Blood Culture - Preliminary Blood SPECIMEN COLLECTED CT Abd/Pel: Radiologist's impression: 1.? Small bilateral pleural effusions and bibasilar atelectasis. 2.? Diffuse soft tissue anasarca. 3.? Extensive vascular calcifications. 4.? No GI tract ischemic disease or obstruction. 5.? Ventral abdominal wall hernia. CXR: Radiologist's impression: 1. Prominent left-sided pleural effusion with compressive atelectasis of the upper and lower lobes the left lung. 2. Cardiac enlargement. 3. Small right-sided pleural effusion. A&P Assessment and plan (1) End-stage renal disease needing dialysis: Status: Acute Plan 1. ESRD 2. Volume overload 3. Hypertension 4. Anemia 5. Diabetes Plan: UF today, 2L/2H as Bp tolerates. HD tomorrow, then continue //. Consider thoracentesis, No BPs, IVs, blood draws left arm Consult Attestations Medical Necessity Statement: see above Time Spent in Patient Care: 16 - 35 minutes Coding Level of Care Code Acute Cleaner Window for Yarelig Fwd Diagnoses End-stage renal disease needing dialysis N18.6; Z99.2
[2022-02-02 21:10] LABS: Hepatitis B Surface Antigen Non-Reactive (Nonreactive)
[2022-02-02 22:00] LABS: Glucose Point of Care 99 mg/dL (70-110)
[2022-02-02] MEDS: heparin 5,000 unit/mL INJ 1 mL 5000 UNIT SUBCUT (22:56)
[2022-02-02] MEDS: TRAMadol 50 mg Tablet PO (22:56)
[2022-02-02] MEDS: insulin glargine 100 units/1 mL 5 UNIT SUBCUT (22:56)
[2022-02-02] MEDS: carvedilol 12.5 mg Tablet PO (22:57)
[2022-02-02] MEDS: hyDRALAzine 50 mg Tablet 100 MG PO (22:57)
[2022-02-02] MEDS: atorvastatin 40 mg Tablet PO (22:58)
[2022-02-02] MEDS: ferrous gluconate 324 mg Tablet PO (22:58)
[2022-02-03] VITALS (12 sets, daily range): BP systolic 116–160; BP diastolic 57–77; PULSE 55–85; RESP 15–22; TEMP 36.7–37.2; O2SAT 75–96
[2022-02-03 05:38] LABS: Basophils # 0.1 10^3/uL (0.0-0.1); Basophils % 0.8 %; Eosinophils # 0.4 10^3/uL (0.0-0.8); Eosinophils % 6.5 %; Hematocrit 30.7 % (37.0-47.0); Hemoglobin 9.5 g/dL (11.5-15.3); Lymphocytes # 0.4 10^3/uL (0.8-4.8); Lymphocytes % 7.3 %; Mean Corpuscular HGB Conc 30.9 g/dL (30.0-36.0); Mean Corpuscular Hemoglobin 30.5 pg (28.0-34.0); Mean Corpuscular Volume 98.7 fl (81-99); Mean Platelet Volume 10.8 fL (7.4-10.4); Monocytes # 0.4 10^3/uL (0.2-0.9); Monocytes % 6.5 %; Neutrophils % 78.6 %; Nucleated Red Blood Cells % 0 %; Platelet Count 187 10^3/cmm (130-400); Red Blood Count 3.11 10^6/uL (4.1-5.3); Red Cell Distribution Width 14.6 % (12.1-15.1)
[2022-02-03 05:47] LABS: Estmated Average Glucose 111; Hemoglobin A1C 5.5 % (4.0-6.0)
[2022-02-03 05:58] LABS: Alanine Aminotransferase 7 U/L (0-33); Albumin Level 3.2 g/dL (3.5-5.2); Alkaline Phosphatase 88 U/L (35-105); Anion Gap 15.5 (5-19); Aspartate Amino Transferase 11 U/L (0-32); Blood Urea Nitrogen 28 mg/dL (6-20); Calcium 9.1 mg/dL (8.5-10.5); Carbon Dioxide 27 mmol/L (22-29); Chloride 98 mmol/L (98-107); Chol HDL Ratio 2.68 mg/dL (0.0-4.40); Cholesterol 102 mg/dL (0-200); Globulin 2.6 g/dL (1.3-4.6); Glomerular Filtration Rate 5.7 mL/min (90-130); Glucose 80 mg/dL (65-115); HDL Cholesterol 38 mg/dL (60-100); LDL Cholesterol Calculated 49 mg/dL (50-129); Osmolality Calculated 288 mOsm/kg (285-295); Potassium 3.5 mmol/L (3.5-5.1); Sodium 137 mmol/L (136-145); Total Bilirubin 0.6 mg/dL (0.15-1.2); Total Protein 5.8 g/dL (6.6-8.7); Triglycerides 77 mg/dL (0-150); VLDL Cholestrol Calculation 15 mg/dL (0-30)
[2022-02-03] MEDS: levothyroxine 150 mcg Tablet PO (06:34)
[2022-02-03] MEDS: heparin 5,000 unit/mL INJ 1 mL 5000 UNIT SUBCUT ×2 (06:34→19:26)
[2022-02-03 06:40] LABS: Glucose Point of Care 91 mg/dL (70-110)
--- NOTE | 2022-02-03 07:32 | P.PN_ITS ---
Subjective Subjective: tyrone nd examined w/ RN. remains sob, cp, uncomfortable, + edema Medications: Reviewed: Yes Medication Review Details: Current Medications Acetaminophen (Acetaminophen 325 Mg Tablet) 650 mg PO Q6H PRN PRN Reason: Mild/Mod Pain Or Temp >/= 101 Albuterol/Ipratropium (Ipratropium-Albuterol 3 Ml Neb) 3 ml INHALATION Q6H.RESP PRN PRN Reason: as needed Amlodipine Besylate (Amlodipine 10 Mg Tablet) 10 mg PO DAILY [facility] Aspirin (Aspirin 81 Mg Chew Tablet) 81 mg PO DAILY@08 [facility] Atorvastatin Calcium (Atorvastatin 40 Mg Tablet) 40 mg PO DAILY@20 [facility] Last Admin: 02/02/22 22:58 Dose: 40 mg Budesonide (Budesonide 0.5 Mg/2 Ml Neb) 0.5 mg INHALATION BID.RESPIRATORY [facility] Last Admin: 02/02/22 22:13 Dose: Not Given Carvedilol (Carvedilol 12.5 Mg Tablet) 12.5 mg PO BID [facility] Last Admin: 02/02/22 22:57 Dose: 12.5 mg Clonazepam (Clonazepam 0.5 Mg Tablet) 0.25 mg PO BID PRN PRN Reason: Anxiety Docusate Sodium (Docusate Sodium 100 Mg Capsule) 100 mg PO BID [facility] Last Admin: 02/02/22 22:58 Dose: Not Given Escitalopram Oxalate (Escitalopram 10 Mg Tablet) 20 mg PO DAILY [facility] Ferrous Gluconate (Ferrous Gluconate 324 Mg Tablet) 324 mg PO BIDWM [facility] Last Admin: 02/02/22 22:58 Dose: 324 mg Heparin Sodium (Porcine) (Heparin 5,000 Unit/Ml Inj 1 Ml) 5,000 unit SUBCUT Q12H [facility] Last Admin: 02/03/22 06:34 Dose: 5,000 unit Heparin Sodium (Porcine) (Heparin, Porcine 1,000 Unit/Ml Inj 10 Ml) 1,000 unit IV ONCE ONE Stop: 02/03/22 08:47 Hydralazine HCl (Hydralazine 50 Mg Tablet) 100 mg PO BID [facility] Last Admin: 02/02/22 22:57 Dose: 100 mg Sodium Chloride (Sodium Chloride 0.9%) 1,000 mls @ 0 mls/hr IV .Q0M PRN PRN Reason: hypotension or symptomatic Sodium Chloride (Sodium Chloride 0.9%) 1,000 mls @ 0 mls/hr IV .Q0M PRN PRN Reason: hypotension or symptomatic Insulin Glargine (Insulin Glargine 100 Units/1 Ml) 5 unit SUBCUT BID@ [facility] Last Admin: 02/02/22 22:56 Dose: 5 unit Isosorbide Mononitrate (Isosorbide Mononitrate Er 60 Mg Tablet) 60 mg PO DAILY [facility] Levothyroxine Sodium (Levothyroxine 150 Mcg Tablet) 150 mcg PO QAM [facility] Last Admin: 02/03/22 06:34 Dose: 150 mcg Ondansetron HCl (Ondansetron 2 Mg/Ml Sdv 2 Ml) 4 mg IVP Q8H PRN PRN Reason: vomiting, or N/V if npo Last Admin: 02/02/22 20:27 Dose: 4 mg Pantoprazole Sodium (Pantoprazole Dr 40 Mg Tablet) 40 mg PO DAILY@08 [facility] Sertraline HCl (Sertraline 50 Mg Tablet) 50 mg PO DAILY [facility] Tizanidine HCl (Tizanidine 4 Mg Tablet) 4 mg PO Q6H PRN PRN Reason: muscle spasticity Tramadol HCl (Tramadol 50 Mg Tablet) 50 mg PO Q8H PRN PRN Reason: pain Last Admin: 02/02/22 22:56 Dose: 50 mg Vitals/I&O/Wt Last Vital Signs Temp 98.5 F 02/03/22 04:00 Pulse 62 02/03/22 04:00 Resp 18 02/03/22 04:00 BP 147/68 02/03/22 04:00 Pulse Ox 89 L 02/03/22 04:00 O2 Del Method 02/02/22 21:35 O2 Flow Rate 3.5 02/02/22 20:25 02/02/22 02/03/22 02/03/22 22:59 06:59 14:59 Intake Total 620 / 620 Balance 620 / 620 Weight last 48 hrs Weight 53.705 kg Weight 83.915 kg Physical Exam Narrative: uncomfortable in bed, nc o2, hypoxic heent- nc/at lungs good air movement heart reg abd soft, + bs ext b/l edema LUE AVF w/ thrill and bruit neuro- a,a, o x 3 Data : 02/03/22 04:51 02/03/22 04:51 Micro: Microbiology 02/02/22 17:17 Blood Culture - Preliminary Blood SPECIMEN COLLECTED 02/02/22 17:12 Blood Culture - Preliminary Blood SPECIMEN COLLECTED A&P Assessment and plan (1) End-stage renal disease needing dialysis: 56? yr old female 1. ESRD-? s/p SUF yesterday - repeat hd today 3.5 hrs, 3 k, remove 3l -phos binders 2. htn-? stable.? cont meds and dialysis 3. dm control 4.anemia- TRISH. low tsaat, ferritin adequate 5. CHF - w/ preserved EF monitor w/ dialysis 6. tsh improving seen and examined w/ RN -telehealth visit Status: Acute Plan see above Attestations Medical Necessity Statement*: esrd, htn, sob Time Spent in Patient Care: 16 - 35 minutes (>than 50% of time spent in counselling and/or direct pt care on unit) . Coding Level of Care Code Acute Security Tester for Maris Braden Diagnoses End-stage renal disease needing dialysis N18.6; Z99.2
[2022-02-03 08:28] LABS: Hepatitis B Surface Antigen Non-Reactive (Nonreactive); Hepatitis C Virus Antibody Non-Reactive (Nonreactive)
[2022-02-03] MEDS: ipratropium-albuterol 3 mL Neb INHALATION (08:31)
[2022-02-03] MEDS: budesonide 0.5 mg/2 mL Neb INHALATION ×2 (08:32→20:37)
[2022-02-03] MEDS: escitalopram 10 mg Tablet 20 MG PO (08:45)
[2022-02-03] MEDS: amlodipine 5 mg Tablet PO (08:45)
[2022-02-03] MEDS: aspirin 81 mg Chew Tablet PO (08:46)
[2022-02-03] MEDS: isosorbide mononitrate ER 60 mg Tablet PO (08:46)
[2022-02-03] MEDS: carvedilol 12.5 mg Tablet PO ×2 (08:46→17:47)
[2022-02-03] MEDS: docusate sodium 100 mg Capsule PO ×2 (08:46→17:47)
[2022-02-03] MEDS: ferrous gluconate 324 mg Tablet PO ×2 (08:46→17:47)
[2022-02-03] MEDS: hyDRALAzine 50 mg Tablet PO ×2 (08:46→17:47)
[2022-02-03] MEDS: sertraline 50 mg Tablet PO (08:46)
[2022-02-03] MEDS: pantoprazole DR 40 mg Tablet PO (08:46)
[2022-02-03] MEDS: insulin glargine 100 units/1 mL 5 UNIT SUBCUT ×2 (08:52→20:44)
[2022-02-03] MEDS: ondansetron 2 mg/ML SDV 2 mL 4 MG IVP ×2 (08:57→18:45)
--- NOTE | 2022-02-03 11:30 | PM.PN ---
Vitals/I&O/Wt Last Vital Signs Temp 98.1 F 02/03/22 08:00 Pulse 62 02/03/22 08:59 Resp 22 H 02/03/22 08:32 BP 160/77 02/03/22 08:00 Pulse Ox 95 02/03/22 08:59 O2 Del Method 02/03/22 08:32 O2 Flow Rate 4 02/03/22 08:32 FiO2 50 02/03/22 08:59 02/02/22 02/03/22 02/03/22 22:59 06:59 14:59 Intake Total 620 / 620 Balance 620 / 620 Weight last 48 hrs Weight 53.705 kg Weight 83.915 kg Physical Exam Narrative: General: No acute distress, AO x3, on nasal cannula, morbidly obese HEENT: PERRLA, pupils bilaterally equal and reactive Chest: Normal vesicular breath sounds, no added sounds, equal good air entry bilaterally CVS: S1-S2 regular, no murmurs, no tachycardia, no gallops, no rubs Abdomen: Soft, nontender, no organomegaly, bowel sounds present Neuro: No focal deficits Right AKA Data : 02/03/22 04:51 02/03/22 04:51 Micro: Microbiology 02/02/22 17:17 Blood Culture - Preliminary Blood SPECIMEN COLLECTED 02/02/22 17:12 Blood Culture - Preliminary Blood SPECIMEN COLLECTED A&P Assessment and plan (1) DOROTEO on CPAP: Status: Acute (2) Chronic diastolic CHF (congestive heart failure): Status: Acute (3) Diarrhea: Status: Acute (4) Shortness of breath: Status: Acute (5) Missed dialysis: Status: Acute (6) Noncompliance: Status: Acute (7) End-stage renal disease needing dialysis: Status: Acute (8) Acute exacerbation of CHF (congestive heart failure): Status: Acute Plan Shortness of breath: Most likely secondary to acute on chronic diastolic congestive heart failure in setting of missed hemodialysis and end-stage renal disease. Cannot rule out underlying pneumonia. Check sputum culture, procalcitonin, flu swab, COVID-19 PCR.? MRSA PCR in the past negative. Last CT scan done in December 2021.? Hold off on further imaging for now.? Chest x-ray negative for consolidation for now. Hold off on starting antibiotics. Nephrology consult for hemodialysis.? Will reevaluate shortness of breath post hemodialysis. CPAP for obstructive sleep apnea Oxygen supplementation keeping saturation over 88%. continue cpap during sleeping Diarrhea: Check stool studies to rule out C. difficile. Hypertension: Goal blood pressure less than 140/90 on Hg. Continue multiple home antihypertensives. Continue other chronic medication including amlodipine, aspirin, atorvastatin, carvedilol, Celexa, hydralazine, isosorbide, levothyroxine, Protonix, sertraline, tramadol. Full code. Renal dialysis diet. Heparin 5000 every 12 hourly. Protonix OPD prophylaxis. Physical therapy consult Attestations Medical Necessity Statement*: Admission for more than 2 midnights for management of shortness of breath secondary to possible congestive heart failure while pneumonia is ruled out in a patient with end-stage renal disease on hemodialysis with history of noncompliance and missed dialysis Coding Level of Care Code Acute Soda Worker for Chg Fwd Diagnoses DOROTEO on CPAP G47.33; Z99.89 Chronic diastolic CHF (congestive heart failure) I50.32 Diarrhea R19.7 Shortness of breath R06.02 Missed dialysis Noncompliance Z91.19 End-stage renal disease needing dialysis N18.6; Z99.2 Acute exacerbation of CHF (congestive heart failure) I50.9
[2022-02-03 11:31] LABS: Glucose Point of Care 97 mg/dL (70-110)
--- NOTE | 2022-02-03 12:11 | PC.CHAP ---
Pastoral Care Encounter/Spiritual Assessment Type of Contact [] Declined compliance advisor visit [] Patient/Family/Request visit [] Outpatient visit [] Follow-up visit [] Physician referral [] Code/Alert [x] Routine visit [] Staff referral [] Actively dying [x] Patient sleeping [] Family support [] [] Out of room [] Palliative care [] [] Receiving care in room [] Pre-surgical visit [] Trauma [] Long length of stay [] ICU visit [] Other: Relational/Emotional Strength [] Patient feels connected with others/family/visitors/staff [] Distress [] Loneliness/isolation [] Abandonment Spirituality of Patient [] Person of Talya [] Attends Jain of their Talya [] Believes in Prayer [] Reads Bible or Christianity materials [] There are Spiritual issues to be addressed Tip Fixer Interventions [] Prayer [] Active listening [] Non-anxious presence [] Spiritual/emotional support [] Crisis/trauma care [] Spiritual counseling [] Bereavement support [] Provided bereavement packet [] Provided Bible/devotional materials [] Provided toy/stuffed animal, coloring book to patient or family member [] Provided Communion [] Anointing/[place] [] Salvation [] Completed spiritual assessment [] Other: Impact on Illness or Injury [] Angry [] Fearful [] Anxious [] Often cries [] Exhaustion [] Unable to work [] Unable to attend yazidism [] Unable to walk/stand [] Unable to read [] Unable to drive [] Unable to eat/drink [] Unable to sleep [] Unable to be with family [] Patient intubated [] Other: Summary Time spent with patient
[2022-02-03] MEDS: TRAMadol 50 mg Tablet PO (19:25)
[2022-02-03] MEDS: atorvastatin 40 mg Tablet PO (19:25)
[2022-02-03] MEDS: tizanidine 4 mg Tablet PO (19:25)
[2022-02-03 20:34] LABS: Glucose Point of Care 141 mg/dL (70-110)
[2022-02-04] VITALS (13 sets, daily range): BP systolic 104–155; BP diastolic 50–69; PULSE 50–57; RESP 16–20; TEMP 36–37.2; O2SAT 91–97
[2022-02-04] MEDS: artificial tears Op Soln 15 mL Btl 1 DROP EYE-BOTH (01:14)
[2022-02-04 05:22] LABS: Alanine Aminotransferase 7 U/L (0-33); Albumin Level 2.9 g/dL (3.5-5.2); Alkaline Phosphatase 85 U/L (35-105); Anion Gap 13.6 (5-19); Aspartate Amino Transferase 10 U/L (0-32); Blood Urea Nitrogen 17 mg/dL (6-20); Calcium 9.4 mg/dL (8.5-10.5); Carbon Dioxide 28 mmol/L (22-29); Chloride 97 mmol/L (98-107); Globulin 2.8 g/dL (1.3-4.6); Glomerular Filtration Rate 8.7 mL/min (90-130); Glucose 92 mg/dL (65-115); Osmolality Calculated 281 mOsm/kg (285-295); Phosphorus 4.1 mg/dL (2.5-4.5); Potassium 3.6 mmol/L (3.5-5.1); Sodium 135 mmol/L (136-145); Total Bilirubin 0.5 mg/dL (0.15-1.2); Total Protein 5.7 g/dL (6.6-8.7)
--- NOTE | 2022-02-04 06:03 | PM.PN ---
Subjective Subjective: feeling better. weak. less sob. remains on 6l nc02. dec edema Medications: Reviewed: Yes Medication Review Details: Current Medications Acetaminophen (Acetaminophen 325 Mg Tablet) 650 mg PO Q6H PRN PRN Reason: Mild/Mod Pain Or Temp >/= 101 Albuterol/Ipratropium (Ipratropium-Albuterol 3 Ml Neb) 3 ml INHALATION Q6H.RESP PRN PRN Reason: as needed Last Admin: 02/03/22 08:31 Dose: 3 ml Amlodipine Besylate (Amlodipine 5 Mg Tablet) 5 mg PO DAILY [facility] Last Admin: 02/03/22 08:45 Dose: 5 mg Artificial Tears (Artificial Tears Op Soln 15 Ml Btl) 1 drop EYE-BOTH Q4H PRN PRN Reason: DRY EYE(S) Last Admin: 02/04/22 01:14 Dose: 1 drop Aspirin (Aspirin 81 Mg Chew Tablet) 81 mg PO DAILY@08 [facility] Last Admin: 02/03/22 08:46 Dose: 81 mg Atorvastatin Calcium (Atorvastatin 40 Mg Tablet) 40 mg PO DAILY@20 [facility] Last Admin: 02/03/22 19:25 Dose: 40 mg Budesonide (Budesonide 0.5 Mg/2 Ml Neb) 0.5 mg INHALATION BID.RESPIRATORY [facility] Last Admin: 02/03/22 20:37 Dose: 0.5 mg Carvedilol (Carvedilol 12.5 Mg Tablet) 12.5 mg PO BID [facility] Last Admin: 02/03/22 17:47 Dose: 12.5 mg Clonazepam (Clonazepam 0.5 Mg Tablet) 0.25 mg PO BID PRN PRN Reason: Anxiety Docusate Sodium (Docusate Sodium 100 Mg Capsule) 100 mg PO BID [facility] Last Admin: 02/03/22 17:47 Dose: 100 mg Escitalopram Oxalate (Escitalopram 10 Mg Tablet) 20 mg PO DAILY [facility] Last Admin: 02/03/22 08:45 Dose: 20 mg Ferrous Gluconate (Ferrous Gluconate 324 Mg Tablet) 324 mg PO BIDWM [facility] Last Admin: 02/03/22 17:47 Dose: 324 mg Heparin Sodium (Porcine) (Heparin 5,000 Unit/Ml Inj 1 Ml) 5,000 unit SUBCUT Q12H [facility] Last Admin: 02/03/22 19:26 Dose: 5,000 unit Hydralazine HCl (Hydralazine 50 Mg Tablet) 50 mg PO BID [facility] Last Admin: 02/03/22 17:47 Dose: 50 mg Sodium Chloride (Sodium Chloride 0.9%) 1,000 mls @ 0 mls/hr IV .Q0M PRN PRN Reason: hypotension or symptomatic Sodium Chloride (Sodium Chloride 0.9%) 1,000 mls @ 0 mls/hr IV .Q0M PRN PRN Reason: hypotension or symptomatic Insulin Glargine (Insulin Glargine 100 Units/1 Ml) 5 unit SUBCUT BID@ [facility] Last Admin: 02/03/22 20:44 Dose: 5 unit Isosorbide Mononitrate (Isosorbide Mononitrate Er 60 Mg Tablet) 60 mg PO DAILY [facility] Last Admin: 02/03/22 08:46 Dose: 60 mg Levothyroxine Sodium (Levothyroxine 150 Mcg Tablet) 150 mcg PO QAM [facility] Last Admin: 02/03/22 06:34 Dose: 150 mcg Ondansetron HCl (Ondansetron 2 Mg/Ml Sdv 2 Ml) 4 mg IVP Q8H PRN PRN Reason: vomiting, or N/V if npo Last Admin: 02/03/22 18:45 Dose: 4 mg Pantoprazole Sodium (Pantoprazole Dr 40 Mg Tablet) 40 mg PO DAILY@08 [facility] Last Admin: 02/03/22 08:46 Dose: 40 mg Sertraline HCl (Sertraline 50 Mg Tablet) 50 mg PO DAILY [facility] Last Admin: 02/03/22 08:46 Dose: 50 mg Tizanidine HCl (Tizanidine 4 Mg Tablet) 4 mg PO Q6H PRN PRN Reason: muscle spasticity Last Admin: 02/03/22 19:25 Dose: 4 mg Tramadol HCl (Tramadol 50 Mg Tablet) 50 mg PO Q8H PRN PRN Reason: pain Last Admin: 02/03/22 19:25 Dose: 50 mg Vitals/I&O/Wt Last Vital Signs Temp 98.4 F 02/04/22 04:00 Pulse 56 L 02/04/22 04:01 Resp 18 02/04/22 04:00 BP 155/69 02/04/22 04:00 Pulse Ox 91 02/04/22 04:00 O2 Del Method 02/03/22 20:38 O2 Flow Rate 4 02/03/22 20:38 FiO2 40 02/03/22 20:38 02/03/22 02/03/22 02/04/22 14:59 22:59 06:59 Intake Total 240 / 240 540 / 780 60 / 840 Output Total 3300 / 3300 Balance 240 / 240 -2760 / -2520 60 / -2460 Weight last 48 hrs Weight 78.1 kg Weight 53.705 kg Weight 83.915 kg Physical Exam Narrative: comfortable in bed, nc o2 6l heent- nc/at lungs scattered wheezes heart reg abd soft, + bs ext no leg edema LUE AVF w/ thrill and bruit neuro- a,a, o x 3 Data : 02/03/22 04:51 02/04/22 04:34 Micro: Microbiology 02/02/22 17:17 Blood Culture - Preliminary Blood NEGATIVE TO DATE 02/02/22 17:12 Blood Culture - Preliminary Blood NEGATIVE TO DATE A&P Assessment and plan (1) End-stage renal disease needing dialysis: 56? yr old female 1. ESRD-? s/p SUF on 02/02. HD 02/03 - repeat SUF today 2.5 hrs, remove 2.5 l -full hd in am- can be as outpt -phos binders 2. htn-? stable.? dec meds tpo allow for fluid removal on dialysis 3. dm control 4.anemia- TRISH. low tsat, ferritin adequate 5. CHF - w/ preserved EF, is improving w/ dialysis 6. tsh improved pth much improved seen and examined w/ RN -telehealth visit Status: Acute Plan see above Attestations Medical Necessity Statement*: sob, chf, esrd Coding Level of Care Code Acute Nurse Practitioner Adult for Chg Fwd Diagnoses End-stage renal disease needing dialysis N18.6; Z99.2
[2022-02-04] MEDS: levothyroxine 150 mcg Tablet PO (06:27)
[2022-02-04] MEDS: heparin 5,000 unit/mL INJ 1 mL 5000 UNIT SUBCUT ×2 (06:32→20:48)
[2022-02-04 06:36] LABS: Glucose Point of Care 99 mg/dL (70-110)
[2022-02-04 07:30] LABS: Basophils % 0.8 %; Eosinophils # 0.5 10^3/uL (0.0-0.8); Eosinophils % 10.7 %; Hematocrit 30.1 % (37.0-47.0); Hemoglobin 9.3 g/dL (11.5-15.3); Lymphocytes # 0.7 10^3/uL (0.8-4.8); Lymphocytes % 15.1 %; Mean Corpuscular HGB Conc 30.9 g/dL (30.0-36.0); Mean Corpuscular Hemoglobin 30.7 pg (28.0-34.0); Mean Corpuscular Volume 99.3 fl (81-99); Mean Platelet Volume 11.5 fL (7.4-10.4); Monocytes # 0.5 10^3/uL (0.2-0.9); Monocytes % 9.9 %; Neutrophils # 3.01 10^3/uL (1.8-7.7); Neutrophils % 63.1 %; Nucleated Red Blood Cells % 0 %; Platelet Count 174 10^3/cmm (130-400); Red Blood Count 3.03 10^6/uL (4.1-5.3); Red Cell Distribution Width 14.6 % (12.1-15.1); White Blood Count 4.8 10^3/uL (4.0-10.0)
[2022-02-04] MEDS: ipratropium-albuterol 3 mL Neb INHALATION (08:26)
[2022-02-04] MEDS: budesonide 0.5 mg/2 mL Neb INHALATION ×2 (08:26→20:35)
[2022-02-04] MEDS: escitalopram 10 mg Tablet 20 MG PO (08:35)
[2022-02-04] MEDS: pantoprazole DR 40 mg Tablet PO (08:35)
[2022-02-04] MEDS: docusate sodium 100 mg Capsule PO ×2 (08:35→17:54)
[2022-02-04] MEDS: insulin glargine 100 units/1 mL 5 UNIT SUBCUT ×2 (08:36→21:43)
[2022-02-04] MEDS: amlodipine 5 mg Tablet PO (08:36)
[2022-02-04] MEDS: isosorbide mononitrate ER 60 mg Tablet PO (08:36)
[2022-02-04] MEDS: carvedilol 12.5 mg Tablet PO ×2 (08:36→17:53)
[2022-02-04] MEDS: sertraline 50 mg Tablet PO (08:36)
[2022-02-04] MEDS: aspirin 81 mg Chew Tablet PO (08:36)
[2022-02-04] MEDS: ferrous gluconate 324 mg Tablet PO ×2 (08:36→17:53)
--- NOTE | 2022-02-04 08:39 | XR_ITS ---
WS: [id number] Exam: XR chest 1V portable [id number] Date/Time of Exam: 02/04/2022 8:47 AM Reason For Exam: shortness of breath Comparison 02/02/2022. Prominent left pleural effusion is unchanged. The heart remains enlarged. Pulmonary vascularity is i ncreased. There is likely some mild early pulmonary edema. A left-sided IJ central line appears to en d near the cavoatrial junction. Small right-sided pleural effusion noted. XR/XR chest 1V portable [id number] IMPRESSION: 1. Cardiac enlargement with increased vascularity and probable mild pulmonary e trista. Findings suspicious for congestive heart failure. 2. Large left-sided pleural effusion with compressive atelectasis of the lingul a and left lower lobe unchanged. 3. Left-sided IJ central line remaining in satisfactory position. Trace right b marycarmen pleural effusion.
[2022-02-04] MEDS: ondansetron 2 mg/ML SDV 2 mL 4 MG IVP (10:07)
--- NOTE | 2022-02-04 11:15 | PM.PN ---
Subjective Subjective: Seen this morning. Subjectively patient states she feels better. However her oxygen requirement has increased to 6 L. She desaturated down to 71% earlier this morning. Patient was not wearing her CPAP. She says she forgot to wear it. Vitals/I&O/Wt Last Vital Signs Temp 97.8 F 02/04/22 08:00 Pulse 55 L 02/04/22 08:27 Resp 18 02/04/22 08:27 BP 144/63 02/04/22 08:00 Pulse Ox 96 02/04/22 08:27 O2 Del Method 02/04/22 08:27 O2 Flow Rate 6 02/04/22 08:27 FiO2 40 02/03/22 20:38 02/03/22 02/04/22 02/04/22 22:59 06:59 14:59 Intake Total 540 / 780 60 / 840 240 / 240 Output Total 3300 / 3300 Balance -2760 / -2520 60 / -2460 240 / 240 Weight last 48 hrs Weight 81.647 kg Weight 78.1 kg Weight 53.705 kg Weight 83.915 kg Physical Exam Narrative: General: No acute distress, AO x3, on 6 L nasal cannula, morbidly obese HEENT: EOMI Chest: Clear to auscultation bilaterally with mild crackles at bases, mild rhonchi present as well CVS: S1-S2 regular, no murmurs, no tachycardia, no gallops, no rubs Abdomen: Soft, nontender, no organomegaly, bowel sounds present Neuro: No focal deficits Right AKA Data : 02/04/22 04:34 02/04/22 04:34 Micro: Microbiology 02/02/22 17:17 Blood Culture - Preliminary Blood NEGATIVE TO DATE 02/02/22 17:12 Blood Culture - Preliminary Blood NEGATIVE TO DATE A&P Assessment and plan (1) DOROTEO on CPAP: Status: Acute (2) Chronic diastolic CHF (congestive heart failure): Status: Acute (3) Diarrhea: Status: Acute (4) Shortness of breath: Status: Acute (5) Missed dialysis: Status: Acute (6) Noncompliance: Status: Acute (7) End-stage renal disease needing dialysis: Status: Acute (8) Acute exacerbation of CHF (congestive heart failure): Status: Acute Plan Shortness of breath: Most likely secondary to acute on chronic diastolic congestive heart failure in setting of missed hemodialysis and end-stage renal disease. Cannot rule out underlying pneumonia. Check sputum culture, procalcitonin, flu swab, COVID-19 PCR.? MRSA PCR in the past negative. Last CT scan done in December 2021.? Order chest x-ray today. Chest x-ray shows large left pleural effusion. Patient is to get dialyzed today. I will repeat a chest x-ray after dialysis. If effusion does not improve, will order thoracentesis for therapeutic purposes. We will bring down oxygen requirement. She is requiring 6 to 7 L today. Nephrology consult for hemodialysis.? Will reevaluate shortness of breath post hemodialysis. CPAP for obstructive sleep apnea Oxygen supplementation keeping saturation over 88%. continue cpap during sleeping And emphasized to the patient to keep her CPAP on when she sleeps. Even if it is a 20-minute nap. Patient demonstrates understanding. Diarrhea: Check stool studies to rule out C. difficile. Hypertension: Goal blood pressure less than 140/90 on Hg. Continue multiple home antihypertensives. Continue other chronic medication including amlodipine, aspirin, atorvastatin, carvedilol, Celexa, hydralazine, isosorbide, levothyroxine, Protonix, sertraline, tramadol. Full code. Renal dialysis diet. Heparin 5000 every 12 hourly. Protonix OPD prophylaxis. Physical therapy consult Attestations Medical Necessity Statement*: Pt needs continued hospitalization at this time due to increasing oxygen requirements. Anticipate another 24 to 48-hour stay. Coding Level of Care Code Acute Associate Vice President for Chg Fwd Diagnoses DOROTEO on CPAP G47.33; Z99.89 Chronic diastolic CHF (congestive heart failure) I50.32 Diarrhea R19.7 Shortness of breath R06.02 Missed dialysis Noncompliance Z91.19 End-stage renal disease needing dialysis N18.6; Z99.2 Acute exacerbation of CHF (congestive heart failure) I50.9
[2022-02-04 11:32] LABS: Glucose Point of Care 213 mg/dL (70-110)
[2022-02-04] MEDS: insulin lispro 100 unit/1 mL SUBCUT ×2 (12:05→21:42)
[2022-02-04] MEDS: tizanidine 4 mg Tablet PO (16:16)
[2022-02-04] MEDS: TRAMadol 50 mg Tablet PO (16:16)
[2022-02-04 17:07] LABS: Glucose Point of Care 84 mg/dL (70-110)
[2022-02-04] MEDS: atorvastatin 40 mg Tablet PO (20:48)
[2022-02-04 21:23] LABS: Glucose Point of Care 150 mg/dL (70-110)
[2022-02-05] VITALS (15 sets, daily range): BP systolic 123–172; BP diastolic 65–71; PULSE 51–66; RESP 15–19; TEMP 36.3–37.4; O2SAT 95–99
[2022-02-05 05:05] LABS: Basophils % 0.6 %; Eosinophils # 0.5 10^3/uL (0.0-0.8); Eosinophils % 10.8 %; Hematocrit 29.6 % (37.0-47.0); Hemoglobin 9.2 g/dL (11.5-15.3); Lymphocytes # 0.7 10^3/uL (0.8-4.8); Lymphocytes % 14.9 %; Mean Corpuscular HGB Conc 31.1 g/dL (30.0-36.0); Mean Corpuscular Hemoglobin 30.6 pg (28.0-34.0); Mean Corpuscular Volume 98.3 fl (81-99); Mean Platelet Volume 11.2 fL (7.4-10.4); Monocytes # 0.5 10^3/uL (0.2-0.9); Monocytes % 10.4 %; Neutrophils # 3.03 10^3/uL (1.8-7.7); Neutrophils % 62.9 %; Nucleated Red Blood Cells % 0 %; Platelet Count 175 10^3/cmm (130-400); Red Blood Count 3.01 10^6/uL (4.1-5.3); Red Cell Distribution Width 14.3 % (12.1-15.1); White Blood Count 4.8 10^3/uL (4.0-10.0)
[2022-02-05 05:39] LABS: Alanine Aminotransferase 6 U/L (0-33); Albumin Level 3.2 g/dL (3.5-5.2); Alkaline Phosphatase 87 U/L (35-105); Anion Gap 13.5 (5-19); Aspartate Amino Transferase 10 U/L (0-32); Blood Urea Nitrogen 25 mg/dL (6-20); Calcium 9.4 mg/dL (8.5-10.5); Carbon Dioxide 29 mmol/L (22-29); Chloride 95 mmol/L (98-107); Globulin 2.6 g/dL (1.3-4.6); Glomerular Filtration Rate 6.8 mL/min (90-130); Glucose 79 mg/dL (65-115); Osmolality Calculated 281 mOsm/kg (285-295); Phosphorus 4.7 mg/dL (2.5-4.5); Potassium 3.5 mmol/L (3.5-5.1); Sodium 134 mmol/L (136-145); Total Bilirubin 0.5 mg/dL (0.15-1.2); Total Protein 5.8 g/dL (6.6-8.7)
[2022-02-05] MEDS: heparin 5,000 unit/mL INJ 1 mL 5000 UNIT SUBCUT ×2 (06:12→18:15)
[2022-02-05] MEDS: levothyroxine 150 mcg Tablet PO (06:12)
[2022-02-05 06:35] LABS: Glucose Point of Care 89 mg/dL (70-110)
--- NOTE | 2022-02-05 06:40 | P.PN_ITS ---
Subjective Subjective: feels better. dec sob. no n/v/f/c/willingham/d Medications: Reviewed: Yes Medication Review Details: Current Medications Acetaminophen (Acetaminophen 325 Mg Tablet) 650 mg PO Q6H PRN PRN Reason: Mild/Mod Pain Or Temp >/= 101 Albuterol/Ipratropium (Ipratropium-Albuterol 3 Ml Neb) 3 ml INHALATION Q6H.RESP PRN PRN Reason: as needed Last Admin: 02/04/22 08:26 Dose: 3 ml Amlodipine Besylate (Amlodipine 5 Mg Tablet) 5 mg PO DAILY [facility] Last Admin: 02/04/22 08:36 Dose: 5 mg Artificial Tears (Artificial Tears Op Soln 15 Ml Btl) 1 drop EYE-BOTH Q4H PRN PRN Reason: DRY EYE(S) Last Admin: 02/04/22 01:14 Dose: 1 drop Aspirin (Aspirin 81 Mg Chew Tablet) 81 mg PO DAILY@08 [facility] Last Admin: 02/04/22 08:36 Dose: 81 mg Atorvastatin Calcium (Atorvastatin 40 Mg Tablet) 40 mg PO DAILY@20 [facility] Last Admin: 02/04/22 20:48 Dose: 40 mg Budesonide (Budesonide 0.5 Mg/2 Ml Neb) 0.5 mg INHALATION BID.RESPIRATORY [facility] Last Admin: 02/04/22 20:35 Dose: 0.5 mg Carvedilol (Carvedilol 12.5 Mg Tablet) 12.5 mg PO BID [facility] Last Admin: 02/04/22 17:53 Dose: 12.5 mg Clonazepam (Clonazepam 0.5 Mg Tablet) 0.25 mg PO BID PRN PRN Reason: Anxiety Docusate Sodium (Docusate Sodium 100 Mg Capsule) 100 mg PO BID [facility] Last Admin: 02/04/22 17:54 Dose: 100 mg Escitalopram Oxalate (Escitalopram 10 Mg Tablet) 20 mg PO DAILY [facility] Last Admin: 02/04/22 08:35 Dose: 20 mg Ferrous Gluconate (Ferrous Gluconate 324 Mg Tablet) 324 mg PO BIDWM [facility] Last Admin: 02/04/22 17:53 Dose: 324 mg Heparin Sodium (Porcine) (Heparin 5,000 Unit/Ml Inj 1 Ml) 5,000 unit SUBCUT Q12H [facility] Last Admin: 02/05/22 06:12 Dose: 5,000 unit Sodium Chloride (Sodium Chloride 0.9%) 1,000 mls @ 0 mls/hr IV .Q0M PRN PRN Reason: hypotension or symptomatic Sodium Chloride (Sodium Chloride 0.9%) 1,000 mls @ 0 mls/hr IV .Q0M PRN PRN Reason: hypotension or symptomatic Insulin Glargine (Insulin Glargine 100 Units/1 Ml) 5 unit SUBCUT BID@ [facility] Last Admin: 02/04/22 21:43 Dose: 5 unit Insulin Human Lispro (Insulin Lispro 100 Unit/1 Ml) 0 unit SUBCUT WM&BEDTIME [facility]; Protocol Last Admin: 02/04/22 21:42 Dose: 2 unit Isosorbide Mononitrate (Isosorbide Mononitrate Er 60 Mg Tablet) 60 mg PO DAILY [facility] Last Admin: 02/04/22 08:36 Dose: 60 mg Levothyroxine Sodium (Levothyroxine 150 Mcg Tablet) 150 mcg PO QAM [facility] Last Admin: 02/05/22 06:12 Dose: 150 mcg Ondansetron HCl (Ondansetron 2 Mg/Ml Sdv 2 Ml) 4 mg IVP Q8H PRN PRN Reason: vomiting, or N/V if npo Last Admin: 02/04/22 10:07 Dose: 4 mg Pantoprazole Sodium (Pantoprazole Dr 40 Mg Tablet) 40 mg PO DAILY@08 [facility] Last Admin: 02/04/22 08:35 Dose: 40 mg Sertraline HCl (Sertraline 50 Mg Tablet) 50 mg PO DAILY [facility] Last Admin: 02/04/22 08:36 Dose: 50 mg Tizanidine HCl (Tizanidine 4 Mg Tablet) 4 mg PO Q6H PRN PRN Reason: muscle spasticity Last Admin: 02/04/22 16:16 Dose: 4 mg Tramadol HCl (Tramadol 50 Mg Tablet) 50 mg PO Q8H PRN PRN Reason: pain Last Admin: 02/04/22 16:16 Dose: 50 mg Vancomycin HCl (Vancomycin 1,000 Mg Oral Juliet (Btl)) 125 mg PO QID [facility] Last Admin: 02/04/22 20:49 Dose: 125 mg Vitals/I&O/Wt Last Vital Signs Temp 97.4 F L 02/05/22 04:00 Pulse 51 L 02/05/22 04:00 Resp 18 02/05/22 04:00 BP 123/68 02/05/22 04:00 Pulse Ox 99 02/05/22 04:00 O2 Del Method 02/05/22 04:00 O2 Flow Rate 6 02/04/22 23:55 FiO2 40 02/05/22 00:08 02/04/22 02/04/22 02/05/22 14:59 22:59 06:59 Intake Total 480 / 480 400 / 880 340 / 1220 Output Total 1950 Balance 480 / 480 -1551 / -1071 340 / -731 Weight last 48 hrs Weight 79 kg Weight 81.647 kg Weight 78.1 kg Physical Exam Narrative: comfortable in bed, NARD heent- nc/at lungs - CTA b/l heart reg abd soft, + bs ext no leg edema LUE AVF w/ thrill and bruit neuro- a,a, o x 3 Data : 02/05/22 04:38 02/05/22 04:38 Micro: Microbiology 02/02/22 11:59 Stool Lactoferrin - Final Stool Enteric Pathogens (PCR) - Final C.difficile Toxin B Gene (PCR) - Final Occult Blood (FIT) - Final A&P Assessment and plan (1) End-stage renal disease needing dialysis: 56? yr old female 1. ESRD-? short hd 3 hrs, 3k, remove 2l today -phos binders 2. htn-? stable.? dec meds to allow for fluid removal on dialysis 3. dm control 4.anemia- TRISH. low tsat, ferritin adequate 5. CHF - w/ preserved EF, is improving w/ dialysis 6. tsh improved pth much improved seen and examined w/ RN -telehealth visit Status: Acute Plan see above Attestations Medical Necessity Statement*: per medicine- hopeful d/c soon Time Spent in Patient Care: 16 - 35 minutes (>than 50% of time spent in counselling and/or direct pt care on unit) . Coding Level of Care Code Acute Gum Mixer for Chg Fwd Diagnoses End-stage renal disease needing dialysis N18.6; Z99.2
[2022-02-05] MEDS: budesonide 0.5 mg/2 mL Neb INHALATION ×2 (07:31→20:57)
[2022-02-05] MEDS: ipratropium-albuterol 3 mL Neb INHALATION (07:31)
--- NOTE | 2022-02-05 07:48 | P.PN_ITS ---
Subjective Subjective: Seen this morning. Patient states she feels a lot better compared to before. Diarrhea is better 2. C. difficile positive. Vancomycin orally started yesterday evening. She is going for dialysis today. Vitals/I&O/Wt Last Vital Signs Temp 97.4 F L 02/05/22 04:00 Pulse 65 02/05/22 07:46 Resp 17 02/05/22 07:35 BP 123/68 02/05/22 04:00 Pulse Ox 96 02/05/22 07:35 O2 Del Method 02/05/22 07:35 O2 Flow Rate 4 02/05/22 07:35 FiO2 40 02/05/22 00:08 02/04/22 02/05/22 02/05/22 22:59 06:59 14:59 Intake Total 400 / 880 340 / 1220 Output Total 1950 Balance -1551 / -1071 340 / -731 Weight last 48 hrs Weight 79 kg Weight 81.647 kg Weight 78.1 kg Physical Exam Narrative: General: No acute distress, AO x3, on 4 L nasal cannula, morbidly obese HEENT: EOMI Chest: Clear to auscultation bilaterally, no wheezes no rhonchi CVS: S1-S2 regular, no murmurs, no tachycardia Abdomen: Soft, nontender, no organomegaly, bowel sounds present Neuro: No focal deficits Right AKA Data : 02/05/22 04:38 02/05/22 04:38 Micro: Microbiology 02/02/22 11:59 Stool Lactoferrin - Final Stool Enteric Pathogens (PCR) - Final C.difficile Toxin B Gene (PCR) - Final Occult Blood (FIT) - Final A&P Assessment and plan (1) DOROTEO on CPAP: Status: Acute (2) Chronic diastolic CHF (congestive heart failure): Status: Acute (3) Diarrhea: Status: Acute (4) Shortness of breath: Status: Acute (5) Missed dialysis: Status: Acute (6) Noncompliance: Status: Acute (7) End-stage renal disease needing dialysis: Status: Acute (8) Acute exacerbation of CHF (congestive heart failure): Status: Acute Plan Shortness of breath: Most likely secondary to acute on chronic diastolic congestive heart failure in setting of missed hemodialysis and end-stage renal disease. Cannot rule out underlying pneumonia. Check sputum culture, procalcitonin, flu swab, COVID-19 PCR.? MRSA PCR in the past negative. Last CT scan done in December 2021.? Order chest x-ray today. Chest x-ray shows large left pleural effusion. She had to be removed at dialysis yesterday. She will have another 2 L removed to day. We will check chest x-ray after dialysis to see improvement in pleural effusion. If that is the case I will discharge patient home with oral vancomycin for her C. difficile. She will to continue to have dialysis outpatient and follow-up with her primary care doctor. Nephrology consult for hemodialysis.? Will reevaluate shortness of breath post hemodialysis. CPAP for obstructive sleep apnea Oxygen supplementation keeping saturation over 88%. continue cpap during sleeping And emphasized to the patient to keep her CPAP on when she sleeps. Even if it is a 20-minute nap. Patient demonstrates understanding. Diarrhea: Positive for C. difficile. Treat with oral Vanco x10 days total. Hypertension: Goal blood pressure less than 140/90 on Hg. Continue multiple home antihypertensives. Continue other chronic medication including amlodipine, aspirin, atorvastatin, carvedilol, Celexa, hydralazine, isosorbide, levothyroxine, Protonix, sertraline, tramadol. Full code. Renal dialysis diet. Heparin 5000 every 12 hourly. Protonix OPD prophylaxis. Physical therapy consult completed. Patient may be able to return home Attestations Medical Necessity Statement*: Potential discharge today. We will reassess chest x-ray after dialysis session today. Coding Level of Care Code Acute Superintendent Colliery for g Fwd Diagnoses DOROTEO on CPAP G47.33; Z99.89 Chronic diastolic CHF (congestive heart failure) I50.32 Diarrhea R19.7 Shortness of breath R06.02 Missed dialysis Noncompliance Z91.19 End-stage renal disease needing dialysis N18.6; Z99.2 Acute exacerbation of CHF (congestive heart failure) I50.9
[2022-02-05] MEDS: insulin glargine 100 units/1 mL 5 UNIT SUBCUT ×2 (09:16→21:01)
[2022-02-05] MEDS: ferrous gluconate 324 mg Tablet PO ×2 (09:17→17:19)
[2022-02-05] MEDS: sertraline 50 mg Tablet PO (09:17)
[2022-02-05] MEDS: pantoprazole DR 40 mg Tablet PO (09:17)
[2022-02-05] MEDS: aspirin 81 mg Chew Tablet PO (09:17)
[2022-02-05] MEDS: escitalopram 10 mg Tablet 20 MG PO (09:18)
[2022-02-05] MEDS: isosorbide mononitrate ER 60 mg Tablet PO (09:18)
--- NOTE | 2022-02-05 11:02 | PC.SOCIAL ---
IMM Update pg 2 of IMM Updated and reviewed w/ patient. Copy provided and Copy dated, initialed and placed in chart.
[2022-02-05 12:18] LABS: Glucose Point of Care 116 mg/dL (70-110)
--- NOTE | 2022-02-05 13:55 | XR_ITS ---
WS: [id number] Exam: XR chest 1V portable [id number] Date/Time of Exam: 02/05/2022 2:23 PM Reason For Exam: pulmonary effusion followup Comparison 02/04/2022. Cardiac enlargement with pulmonary vascular congestion. There has been some improvement. Prominent le ft basal pleural effusion unchanged. Left-sided IJ central line remaining in satisfactory position. T he lungs are fully expanded. Bony structures are intact. XR/XR chest 1V portable [id number] IMPRESSION: 1. Cardiac enlargement with increased pulmonary vascularity. Less pulmonary vas cular congestion than noted previously. 2. Prominent left pleural effusion unchanged. 3. Left-sided IJ catheter remaining in satisfactory position.
[2022-02-05] MEDS: TRAMadol 50 mg Tablet PO (14:28)
[2022-02-05 16:40] LABS: Glucose Point of Care 198 mg/dL (70-110)
[2022-02-05] MEDS: insulin lispro 100 unit/1 mL SUBCUT ×2 (17:19→21:56)
[2022-02-05] MEDS: carvedilol 12.5 mg Tablet PO (17:20)
[2022-02-05] MEDS: atorvastatin 40 mg Tablet PO (20:27)
[2022-02-05] MEDS: tizanidine 4 mg Tablet PO (20:27)
[2022-02-05] MEDS: CLONazepam 0.5 mg Tablet 0.25 MG PO (21:01)
[2022-02-05 21:42] LABS: Glucose Point of Care 150 mg/dL (70-110)
[2022-02-06] VITALS (7 sets, daily range): BP systolic 113–144; BP diastolic 63–74; PULSE 53–76; RESP 12–18; TEMP 36.4–36.8; O2SAT 93–100
[2022-02-06] MEDS: tizanidine 4 mg Tablet PO ×2 (05:05→14:34)
[2022-02-06 05:11] LABS: Basophils % 0.8 %; Eosinophils # 0.5 10^3/uL (0.0-0.8); Eosinophils % 9.4 %; Hematocrit 30.8 % (37.0-47.0); Hemoglobin 9.8 g/dL (11.5-15.3); Lymphocytes # 0.8 10^3/uL (0.8-4.8); Lymphocytes % 17.2 %; Mean Corpuscular HGB Conc 31.8 g/dL (30.0-36.0); Mean Corpuscular Hemoglobin 30.2 pg (28.0-34.0); Mean Corpuscular Volume 95.1 fl (81-99); Monocytes # 0.5 10^3/uL (0.2-0.9); Monocytes % 10.5 %; Neutrophils # 2.95 10^3/uL (1.8-7.7); Neutrophils % 61.9 %; Nucleated Red Blood Cells % 0 %; Platelet Count 184 10^3/cmm (130-400); Red Blood Count 3.24 10^6/uL (4.1-5.3); Red Cell Distribution Width 14.1 % (12.1-15.1); White Blood Count 4.8 10^3/uL (4.0-10.0)
[2022-02-06 05:38] LABS: Alanine Aminotransferase 6 U/L (0-33); Albumin Level 3.2 g/dL (3.5-5.2); Alkaline Phosphatase 87 U/L (35-105); Anion Gap 14.7 (5-19); Aspartate Amino Transferase 10 U/L (0-32); Blood Urea Nitrogen 20 mg/dL (6-20); Calcium 9.7 mg/dL (8.5-10.5); Carbon Dioxide 28 mmol/L (22-29); Chloride 95 mmol/L (98-107); Globulin 2.6 g/dL (1.3-4.6); Glomerular Filtration Rate 8.7 mL/min (90-130); Glucose 99 mg/dL (65-115); Magnesium 1.9 mg/dL (1.7-2.3); Osmolality Calculated 281 mOsm/kg (285-295); Phosphorus 4.3 mg/dL (2.5-4.5); Potassium 3.7 mmol/L (3.5-5.1); Sodium 134 mmol/L (136-145); Total Bilirubin 0.5 mg/dL (0.15-1.2); Total Protein 5.8 g/dL (6.6-8.7)
[2022-02-06] MEDS: heparin 5,000 unit/mL INJ 1 mL 5000 UNIT SUBCUT (06:20)
[2022-02-06] MEDS: levothyroxine 150 mcg Tablet PO (06:20)
[2022-02-06 07:57] LABS: Glucose Point of Care 130 mg/dL (70-110)
--- NOTE | 2022-02-06 08:00 | US_ITS ---
WS: [id number] ULTRASOUND-GUIDED THORACENTESIS HISTORY: left pleural effusion Procedure, risks, and complications were explained to the patient. With the patient in an upright pos ition, the skin over the LEFT posterior thorax was cleansed with ChloraPrep and anesthetized with 1% buffered lidocaine. A 5 Stateless Yueh needle is inserted into the pleural fluid without complication. A pproximately 1000 cc of dark red pleural fluid is removed without difficulty. Pleural fluid specimen collected for analysis as requested. / thoracentesis [id number] IMPRESSION: 1. LEFT thoracentesis yielding 1000 cc of fluid. 2. Chest radiograph to follow to evaluate for pneumothorax. 3. Dark red, bloody pleural fluid aspirated. Collected and sent for analysis a s requested.
[2022-02-06] MEDS: pantoprazole DR 40 mg Tablet PO (08:49)
[2022-02-06] MEDS: ferrous gluconate 324 mg Tablet PO (08:49)
[2022-02-06] MEDS: sertraline 50 mg Tablet PO (08:49)
[2022-02-06] MEDS: escitalopram 10 mg Tablet 20 MG PO (08:50)
[2022-02-06] MEDS: carvedilol 12.5 mg Tablet PO (08:50)
[2022-02-06] MEDS: aspirin 81 mg Chew Tablet PO (08:50)
[2022-02-06] MEDS: isosorbide mononitrate ER 60 mg Tablet PO (08:51)
[2022-02-06] MEDS: amlodipine 5 mg Tablet PO (08:51)
--- NOTE | 2022-02-06 08:57 | PC.NURSE ---
Patient refused insulin glargine this am due to being NPO.
[2022-02-06] MEDS: budesonide 0.5 mg/2 mL Neb INHALATION (08:59)
--- NOTE | 2022-02-06 09:56 | P.DS_ITS ---
Discharge Providers Date of Admission: 02/02/22 16:03 Date of Discharge: February 06, 2022 Attending Provider at Admission: Flash Luciano MD Attending Provider at Discharge: Ewa Mccarty MD Primary Care Provider: Jacob Sharp DO Diagnoses at Discharge Discharge Diagnosis (1) DOROTEO on CPAP: Status: Acute (2) Chronic diastolic CHF (congestive heart failure): Status: Acute Permanent problem details: 12/2020 EF 55%, grade II/IV diastolic dysfunction (3) Diarrhea: Status: Resolved (4) Shortness of breath: Status: Resolved (5) Missed dialysis: Status: Acute (6) Noncompliance: Status: Acute (7) End-stage renal disease needing dialysis: Status: Acute (8) Acute exacerbation of CHF (congestive heart failure): Status: Resolved Reason for Visit Reason for Visit: FALL Brief History: Rizwana Herzog is a 56 year old female with past medical history patient renal disease on hemodialysis, noncompliance, multiple admissions because of missed dialysis, diastolic heart failure, COPD, obstructive sleep apnea presented to the ER today due to fall while she was trying to get out of bed to wheelchair to go to bathroom.? Post fall she is been complaining of knee pain.? As per patient she has been having episodes of diarrhea for the last 2 days.? Denies any fever, nausea, vomiting.? Patient is supposed to have her dialysis today but has not been able to go for dialysis because of the fall.? Currently patient is complaining of shortness of breath more than usual.? At baseline patient uses 2 L of oxygen supplementation.? Patient was having recurrent episodes of hypoxia on her baseline oxygenation and hospital service was asked for admission. Hospital Course Hospital Course Patient came for generalized weakness. She missed dialysis. She also had diarrhea on admission. Patient was found to be positive for C. difficile. She was placed on Vanco x10 days. Diarrhea resolved. For fluid overload she was dialyzed during hospital stay. Patient felt better. She also had a left-sided pleural effusion that was not improving with dialysis. Diagnostic and therapeutic tap was done. It was lymphocytic predominant effusion exudate. Most likely secondary to pleuritis secondary to uremia. Discussed with Dr. Bernstein. Patient was asymptomatic respiratory griffin and came down to 3 L which is her baseline oxygen. Cytology is pending. Patient to follow-up with her primary care doctor at discharge. Patient demonstrates understanding. Physical Exam Narrative: General: No acute distress, AO x3, on 4 L nasal cannula, morbidly obese HEENT: EOMI Chest: Clear to auscultation bilaterally, no wheezes no rhonchi CVS: S1-S2 regular, no murmurs, no tachycardia Abdomen: Soft, nontender, no organomegaly, bowel sounds present Neuro: No focal deficits Right AKA Discharge Data Studies Completed and Pending Completed Studies During Hospitalization Category Date Time Status CT abdomen pelvis w con* [id number] Stat Cat Scan 02/02/22 11:37 Completed XR chest 1V [id number] Stat Exams 02/02/22 14:15 Completed XR chest 1V portable [id number] Routine Exams 02/04/22 08:39 Completed XR chest 1V portable [id number] Stat Exams 02/02/22 12:52 Completed XR chest 1V portable [id number] Urgent Exams 02/05/22 13:55 Completed XR knee LT 3V* [id number] Stat Exams 02/02/22 11:37 Completed Pending at discharge Category Date Time Status Albumin Body Fluid Routine Lab 02/05/22 15:58 Ordered Amylase Pleural Fluid Routine Lab 02/05/22 15:58 Ordered Blood Culture Stat Lab 02/02/22 17:17 Results Body Fluid Analysis Routine Lab 02/05/22 15:58 Ordered Body Fluid Culture & GS Routine Lab 02/05/22 15:59 Ordered Complete Blood Count w/Auto AM LABS Lab 02/07/22 04:00 Ordered Creatinine Body Fluid Routine Lab 02/05/22 15:59 Ordered Cyto Order Verification Routine Lab 02/05/22 15:58 Ordered Glucose Pleural Fluid Routine Lab 02/05/22 15:58 Ordered Hematocrit Body Fluid Routine Lab 02/05/22 15:58 Ordered LDH Pleural Fluid Routine Lab 02/05/22 15:58 Ordered Legionella Antigen STAT Routine Lab 02/02/22 16:57 Uncollected Total Protein Pleural Fluid Routine Lab 02/05/22 15:58 Ordered Triglycerides, Pleural Fluid Routine Lab 02/05/22 15:58 Ordered Urinalysis Routine Lab 02/02/22 16:57 Uncollected Urinalysis and Microscopic Stat Lab 02/02/22 11:38 Uncollected pH Pleural Fluid Routine Lab 02/05/22 15:58 Ordered US thoracentesis [id number] Routine Ultrasound 02/06/22 08:00 Ordered Radiology Impressions Abdomen/Pelvis CT 02/02/22 11:37 IMPRESSION: 1. Small bilateral pleural effusions and bibasilar atelectasis. 2. Diffuse soft tissue anasarca. 3. Extensive vascular calcifications. 4. No GI tract ischemic disease or obstruction. 5. Ventral abdominal wall hernia. Knee X-Ray 02/02/22 11:37 IMPRESSION: 1. No fracture or dislocation. Minimal joint effusion. Chest X-Ray 02/05/22 13:55 IMPRESSION: 1. Cardiac enlargement with increased pulmonary vascularity. Less pulmonary vascular congestion than noted previously. 2. Prominent left pleural effusion unchanged. 3. Left-sided IJ catheter remaining in satisfactory position. Laboratory Results WBC 4.8 10^3/uL (4.0-10.0) 02/06/22 04:44 RBC 3.24 10^6/uL (4.1-5.3) L 02/06/22 04:44 Hgb 9.8 g/dL (11.5-15.3) L 02/06/22 04:44 Hct 30.8 % (37.0-47.0) L 02/06/22 04:44 MCV 95.1 fl (81-99) 02/06/22 04:44 MCH 30.2 pg (28.0-34.0) 02/06/22 04:44 MCHC 31.8 g/dL (30.0-36.0) 02/06/22 04:44 RDW 14.1 % (12.1-15.1) 02/06/22 04:44 Plt Count 184 10^3/cmm (130-400) 02/06/22 04:44 MPV 11.0 fL (7.4-10.4) H 02/06/22 04:44 Neut % (Auto) 61.9 % 02/06/22 04:44 Lymph % (Auto) 17.2 % 02/06/22 04:44 [place] % (Auto) 10.5 % 02/06/22 04:44 Eos % (Auto) 9.4 % 02/06/22 04:44 Baso % (Auto) 0.8 % 02/06/22 04:44 Neut # (Auto) 2.95 10^3/uL (1.8-7.7) 02/06/22 04:44 Lymph # (Auto) 0.8 10^3/uL (0.8-4.8) 02/06/22 04:44 [place] # (Auto) 0.5 10^3/uL (0.2-0.9) 02/06/22 04:44 Eos # (Auto) 0.5 10^3/uL (0.0-0.8) 02/06/22 04:44 Baso # (Auto) 0.0 10^3/uL (0.0-0.1) 02/06/22 04:44 Nucleated RBC % (auto) 0 % 02/06/22 04:44 Nucleated RBCs # 0.0 /100WBC 02/06/22 04:44 PT 14.50 SECONDS (12.1-14.9) 02/06/22 04:44 INR 1.10 (0.8-1.2) 02/06/22 04:44 Sodium 134 mmol/L (136-145) L 02/06/22 04:44 Potassium 3.7 mmol/L (3.5-5.1) 02/06/22 04:44 Chloride 95 mmol/L (98-107) L 02/06/22 04:44 Carbon Dioxide 28 mmol/L (22-29) 02/06/22 04:44 Anion Gap 14.7 (5-19) 02/06/22 04:44 BUN 20 mg/dL (6-20) 02/06/22 04:44 Creatinine 5.1 mg/dL (0.5-0.9) H 02/06/22 04:44 GFR Calculation 8.7 mL/min (90-130) L 02/06/22 04:44 Glucose 99 mg/dL (65-115) 02/06/22 04:44 POC Glucose 130 mg/dL (70-110) H 02/06/22 07:54 Estimat Average Glucose 111 02/03/22 04:51 Hemoglobin A1c 5.5 % (4.0-6.0) 02/03/22 04:51 Calculated Osmolality 281 mOsm/kg (285-295) L 02/06/22 04:44 Lactate 0.4 mmol/L (0.5-2.2) L 02/02/22 14:21 Calcium 9.7 mg/dL (8.5-10.5) 02/06/22 04:44 Phosphorus 4.3 mg/dL (2.5-4.5) 02/06/22 04:44 Magnesium 1.9 mg/dL (1.7-2.3) 02/06/22 04:44 Iron 31 ug/dL (37-145) L 02/02/22 14:26 TIBC 186 mcg/dl 02/02/22 14:26 % Saturation 16.6 % (20-50) L 02/02/22 14:26 Unsat Iron Binding 155 ug/dL (112-347) 02/02/22 14:26 Total Bilirubin 0.5 mg/dL (0.15-1.2) 02/06/22 04:44 AST 10 U/L (0-32) 02/06/22 04:44 ALT 6 U/L (0-33) 02/06/22 04:44 Alkaline Phosphatase 87 U/L (35-105) 02/06/22 04:44 Troponin T Gen 5 ng/L 117 ng/L (0-10) H* 02/02/22 14:21 Total Protein 5.8 g/dL (6.6-8.7) L 02/06/22 04:44 Albumin 3.2 g/dL (3.5-5.2) L 02/06/22 04:44 Globulin 2.6 g/dL (1.3-4.6) 02/06/22 04:44 Triglycerides 77 mg/dL (0-150) 02/03/22 04:51 Cholesterol 102 mg/dL (0-200) 02/03/22 04:51 LDL Cholesterol, Calc 49 mg/dL (50-129) L 02/03/22 04:51 Total VLDL Cholesterol 15 mg/dL (0-30) 02/03/22 04:51 HDL Cholesterol 38 mg/dL (60-100) L 02/03/22 04:51 Cholesterol/HDL Ratio 2.68 mg/dL (0.0-4.40) 02/03/22 04:51 Lipase 18 U/L (13-60) 02/02/22 14:21 Vitamin B12 529 pg/mL (232-1245) 02/02/22 14:26 Folate 12.2 ng/mL (4.8-37.3) 02/02/22 14:26 Procalcitonin 0.18 ng/mL (0-0.5) 02/02/22 14: TSH 6.15 uIU/mL (0.27-4.20) H 02/02/22 14:26 Nasal Influ A H1 2009 PCR Not detected (NOT DETECT) 02/02/22 16:22 Coronavirus 229E (PCR) Not detected (NOT DETECT) 02/02/22 16:22 Hep Bs Antigen Non-reactive (Nonreactive) 02/02/22 14: Hep Bs Antigen Non-reactive (Nonreactive) 02/02/22 14:26 Hep Bs Antibody 26.0 (11.5-1000) 02/02/22 14:26 Hepatitis C Antibody Non-reactive (Nonreactive) 02/02/22 14:26 Influenza A (H1) PCR Not detected (NOT DETECT) 02/02/22 16:22 Influenza A (H3) PCR Not detected (NOT DETECT) 02/02/22 16:22 Influenza Type A (PCR) Not detected (NOT DETECT) 02/02/22 16:22 Influenza Type B (PCR) Not detected (NOT DETECT) 02/02/22 16:22 SARS-CoV-2 (PCR) Not detected (NOT DETECT) 02/02/22 16:22 Vitals Last Vital Signs Temp 98.1 F 02/06/22 08:00 Pulse 57 L 02/06/22 08:00 Resp 12 02/06/22 08:00 BP 113/63 02/06/22 08:00 Pulse Ox 93 02/06/22 08:00 O2 Del Method 02/06/22 08:00 O2 Flow Rate 3 02/06/22 08:00 FiO2 40 02/06/22 02:58 Discharge Plan Discharge Patient Disposition: Home Condition: Stable Prescriptions: New vancomycin 1,000 mg Recon Soln 125 mg PO QID 9 Days Qty: 36 0RF Continued escitalopram oxalate 20 mg tablet 20 mg PO DAILY cyclobenzaprine 10 mg tablet 10 mg PO TID PRN (Reason: muscle spasm) Qty: 30 2RF pantoprazole 40 mg tablet,delayed release (DR/EC) 40 mg PO DAILY@08 Qty: 90 3RF (DME) pen needle, diabetic [ReliOn Pen [place]] 32 gauge x 5/32 needle See Rx Instructions .ROUTE .MEDSUPPLY Qty: 100 6RF Rx Instructions: use for insulin injections (DME) PROSTHETIC SUPPLIES See Rx Instructions .Route .MEDSUPPLY Qty: 1 0RF Rx Instructions: As directed levothyroxine [Euthyrox] 150 mcg tablet 150 mcg PO QAM Qty: 90 3RF atorvastatin 40 mg tablet 40 mg PO DAILY@20 Qty: 90 3RF clonazepam 0.25 mg tablet,disintegrating 0.25 mg PO BID PRN (Reason: Anxiety) Qty: 30 0RF amlodipine 10 mg tablet 10 mg PO DAILY Qty: 90 1RF aspirin 81 mg Tablet,Chewable 81 mg PO DAILY@08 Hold Instructions: Resume on 10/24/21. cholecalciferol (vitamin D3) [Vitamin D3] 25 mcg (1,000 unit) Tablet 25 mcg PO DAILY@08 omega 4-ikm-dib-fish oil [Fish Oil] 300-1,000 mg Capsule,Delayed Release(Dr/Ec) 1 cap PO BID@08,20 Glucosamine Chondroitin 550-30-1 mg Capsule 1 cap PO DAILY hydralazine 100 mg tablet 100 mg PO BID isosorbide mononitrate 60 mg tablet extended release 24 hr 60 mg PO DAILY ketorolac 0.5 % drops 1 drp ophthalmic (eye) QID prednisolone acetate 1 % drops,suspension 1 drp ophthalmic (eye) QID tizanidine 4 mg capsule 4 mg PO Q6H PRN (Reason: muscle spasticity) Qty: 20 0RF Rx Instructions: do not exceed 3 doses per 24 hrs tramadol 50 mg tablet 50 mg PO Q8H PRN (Reason: pain) Qty: 10 0RF Dialyvite 100-1 mg tablet 1 tab PO DAILY insulin glargine [Lantus Solostar U-100 Insulin] 100 unit/mL (3 mL) insulin pen 5 unit SUBCUT BID@08,20 Qty: 15 12RF sertraline 50 mg tablet 50 mg PO DAILY carvedilol 12.5 mg tablet 12.5 mg PO BID Constulose 10 gram/15 mL solution 10 g PO DAILY PRN (Reason: Constipation) Discharge Orders: Discharge Order (Routine); Ordered 02/06/22 Ordered By: Ewa Mccarty Other Ambulatory Orders: DME: Walker (Order) Location: None Selected Ordered By: Ewa Mccarty Physical Therapy Outpatient in Home Eval and Treat Other (Order) Facility: [facility] - Location: Physical Therapy Ordered By: Ewa Mccarty Referrals: Jacob Sharp DO [Primary Care Provider] - 02/16/22 3:45 pm Discharge Diet: Usual diet Discharge Activity: Resume usual activity and Oxygen as instructed Patient Instructions: Vancomycin (By mouth), Heart Failure (GEN), C. Diff (Clostridioides Difficile) Infection (GEN), Opioid Safety Activity Restrictions/Additional Instructions: Please attend dialysis as directed. Return to ER for worsening diarrhea, chest pain, shortness of breath. Discharge Attestations Time Spent in Discharge Care*: less than 30 min Status at Discharge: Cognitive status at discharge: cognitively intact , Behavioral status at discharge: [facility] , Quality Metrics Clinical Quality Measures [ No reported AMI, CVA or VTE this stay] Coding Level of Care Code Acute Chg FW DC note Diagnoses DOROTEO on CPAP G47.33; Z99.89 Chronic diastolic CHF (congestive heart failure) I50.32 Diarrhea R19.7 Shortness of breath R06.02 Missed dialysis Noncompliance Z91.19 End-stage renal disease needing dialysis N18.6; Z99.2 Acute exacerbation of CHF (congestive heart failure) I50.9
--- NOTE | 2022-02-06 10:20 | XR_ITS ---
WS: [id number] PORTABLE CHEST HISTORY: Post thoracentesis, LEFT COMPARISON: 02/05/2022 Status post LEFT thoracentesis. Marked improved aeration of the LEFT lung with persistent atelectatic changes in the mid and lower LEFT lung. Very small residual LEFT pleural effusion. No pneumothorax. Small RIGHT pleural effusion. Cardiac size: Moderately enlarged cardiac silhouette. Mediastinum/Aorta: Mild atherosclerosis aorta. No osseous abnormality seen. XR/XR chest 1V portable [id number] IMPRESSION: 1. Status post LEFT thoracentesis. No pneumothorax. 2. Improved aeration of the LEFT lung but there is continued atelectasis and a small LEFT pleural effusion.
[2022-02-06 11:14] LABS: Body Fluid Polynuclear #Cells 0.076; Body Fluid WBC 525 /uL; Monocytes # Body Fluid 0.449
[2022-02-06 11:16] LABS: Apprearance, Body Fluid CLOUDY; Color, Body Fluid RED; Cyto Order Verification Order Verified
[2022-02-06 11:31] LABS: Hematocrit Body Fluid 0.6 %
[2022-02-06 11:36] LABS: Glucose Point of Care 119 mg/dL (70-110)
[2022-02-06 12:18] LABS: Albumin Body Fluid 2.7 g/dL; LDH Pleural Fluid 187 U/L; Total Protein Pleural Fluid 4.1 g/dL; Triglycerides, Pleural Fluid 40 mg/dL
[2022-02-06 12:19] LABS: Creatinine Body Fluid 5.76 (0.5-0.9)
[2022-02-06 13:22] LABS: Lactate Dehydrogenase 166 U/L (135-214)
[2022-02-06] MEDS: TRAMadol 50 mg Tablet PO (14:34)
--- NOTE | 2022-02-06 15:34 | PC.NURSE ---
Patient verbalized understanding of discharge instructions, new medications, and follow up appointments. No further questions at this time.
== END 2022-02-06 16:30 | disposition home or self-care (01) | DRG 291 ==
LOC: ER 12:43 → MEDSURG 18:06
PROVIDERS: Internal Medicine; Internal Medicine Nephrology; Admitting Provider Student in an Organized Health Care Education/Training Program; Emergency Provider Emergency Medicine; PCP Family Medicine; Visit Provider Internal Medicine
DX: I13.2 Hypertensive heart and chronic kidney disease with heart failure and with stage 5 chronic kidney disease, or end stage renal disease (principal); I50.33 Acute on chronic diastolic (congestive) heart failure; N18.6 End stage renal disease; A04.72 Enterocolitis due to Clostridium difficile, not specified as recurrent; J90 Pleural effusion, not elsewhere classified; E11.22 Type 2 diabetes mellitus with diabetic chronic kidney disease; Z91.15 Patient's noncompliance with renal dialysis; Z79.4 Long term (current) use of insulin; Z99.2 Dependence on renal dialysis; G47.33 Obstructive sleep apnea (adult) (pediatric); Z99.81 Dependence on supplemental oxygen; M25.562 Pain in left knee; W19.XXXA Unspecified fall, initial encounter; Z79.82 Long term (current) use of aspirin; D63.1 Anemia in chronic kidney disease; E03.9 Hypothyroidism, unspecified; R09.02 Hypoxemia
CPT/HCPCS: 32555; 36415; 36416; 36556; 36592; 71045; 73562; 74177; 80053; 80061; 80503; 82042; 82150; 82274; 82570; 82607; 82746; 82945; 82962; 83036; 83540; 83550; 83605; 83615; 83630; 83690; 83735; 83986; 84100; 84145; 84157; 84443; 84478; 84484; 85014; 85025; 85610; 86706; 86803; 87040; 87070; 87075; 87205; 87340; 87493; 87506; 87631; 87635; 88108; 89050; 93005; 94640; 94660; 94664; 96372; 96374; 96375; 97110; 97116; 97161; 97530; 99285; C1751; J1644; J1815; J2270; J2405; J3010; J3370; J7040; J7626; Q3014; Q9967

== ENCOUNTER 2022-02-14 08:28 | Emergency (ER) | payer MEDICARE, MEDICAID, SELFPAY ==
[2022-02-14 08:31] VITALS: TEMP 36.5; BMI 30.2
--- NOTE | 2022-02-14 08:31 | XRR_ITS ---
PROCEDURE INFORMATION: Exam: XR Chest Exam date and time: 02/14/2022 8:43 AM Age: 56 years old Clinical indication: Pain; Angina pectoris; Additional info: Chest pain TECHNIQUE: Imaging protocol: Radiologic exam of the chest. Views: 1 view. COMPARISON: CR XR chest 1V portable [id number] 02/06/2022 10:46 AM FINDINGS: Lungs: Mild bibasilar atelectasis. Otherwise, no focal airspace consolidation. Pleural spaces: Unremarkable. No pleural effusion. No pneumothorax. Heart/Mediastinum: Unremarkable. No cardiomegaly. Bones/joints: Unremarkable. XR/XR chest 1V portable [id number] IMPRESSION: No acute cardiopulmonary abnormality.
--- NOTE | 2022-02-14 08:36 | ECG_ITS ---
[facility] Test Date: 2022-02-14 Pat Name: Rizwana Herzog Department: Room: Gender: Female Manager Willow: : 1965 Requested By: Karan Lepe Order Number: [id number] Catherine MD: Dong Pitt M.D. Measurements Intervals [place] Rate: 60 P: -49 AL: 204 QRS: -57 QRSD: 109 T: 74 QT: 458 QTc: 459 Interpretive Statements SINUS RHYTHM LEFT AXIS DEVIATION [QRS AXIS < -30] POSSIBLE ANTERIOR MYOCARDIAL INFARCTION , PROBABLY OLD [30 ms Q WAVE IN V3/V4, OR R < 0.2 mV IN V4] Compared to ECG 02/02/2022 12:00:01 No significant changes Electronically Signed On 02-15-2022 13:21:06 CDT by Dong Pitt M.D. [id number]
[2022-02-14 08:40] VITALS: BP 151/70; PULSE 60; RESP 18; TEMP 36.5; O2SAT 96
--- NOTE | 2022-02-14 08:40 | PC.NURSE ---
PT on continuous CM and SPO2
[2022-02-14 09:02] LABS: Basophils % 0.7 %; Eosinophils # 0.4 10^3/uL (0.0-0.8); Eosinophils % 7.8 %; Hematocrit 32.8 % (37.0-47.0); Hemoglobin 10.4 g/dL (11.5-15.3); Lymphocytes # 0.9 10^3/uL (0.8-4.8); Lymphocytes % 15.1 %; Mean Corpuscular HGB Conc 31.7 g/dL (30.0-36.0); Mean Corpuscular Hemoglobin 30.5 pg (28.0-34.0); Mean Corpuscular Volume 96.2 fl (81-99); Mean Platelet Volume 10.9 fL (7.4-10.4); Monocytes # 0.4 10^3/uL (0.2-0.9); Monocytes % 7.3 %; Neutrophils # 3.85 10^3/uL (1.8-7.7); Neutrophils % 68.4 %; Nucleated Red Blood Cells % 0 %; Platelet Count 205 10^3/cmm (130-400); Red Blood Count 3.41 10^6/uL (4.1-5.3); Red Cell Distribution Width 13.7 % (12.1-15.1); White Blood Count 5.6 10^3/uL (4.0-10.0)
--- NOTE | 2022-02-14 09:06 | ED_ITS ---
HPI - Chest Pain General: Chief Complaint: Chest Pain Stated Complaint: chest pain Time Seen by Provider: 02/14/22 08:30 Source: patient Mode of arrival: ambulatory History of Present Illness: 56-year-old female presents emergency room complaining of chest pain. She had chest pain radiating to her back lower chest across both sides of the chest is worse when she takes a deep breath she recently had a thoracentesis done. She made about 1 hour of her 3-hour dialysis run. She not having any chest pain although it is somewhat reproducible and I asked her to take deep breaths for exam. No radiation of the pain to the neck or arms. Patient is diabetic with end-stage renal disease and previously had a right below the knee amputation. She is not recently had any fever sweats or chills or productive cough. She did have a stress test earlier this year that did not pursue any angiogram after that she has been in several times recently with chest discomfort and has ruled out for ND. Onset (ago): minute(s) Timing of current episode: episodic Prior episodes: Yes Onset: during rest Pain location: left chest and right chest Pain radiation: back Severity: mild Quality: sharp Relieving factors: nothing Exacerbating factors: inspiration Associated symptoms: Deny abdominal pain, diaphoresis, dyspnea, fever(s), leg edema, nausea, palpitations, sense of impending doom, syncope or vomiting Treatment prior to arrival: none Review of Systems Const: Denies: fever(s), chills, fatigue, malaise or diaphoresis ENMT: Denies: throat pain, ear or mastoid pain, nasal discharge or nasal congestion Card: Reports: chest pain; Denies: palpitations or syncope Resp: Denies: dyspnea GI: Denies: abdominal pain, nausea or vomiting : Denies: flank pain, difficulty voiding, dysuria, urinary frequency or urinary urgency Skin/Breast: Denies: rash or pruritus PFSH ED PFSH: Medical History Acute dyspnea Acute hyperkalemia Adjustment disorder with mixed disturbance of emotions and conduct Anemia in chronic kidney disease Anxiety Anxiety and depression BPPV (benign paroxysmal positional vertigo) CAD (coronary artery disease) Carotid stenosis 04/2020: Right < 50%, Left near 70% CHF exacerbation Chronic diastolic CHF (congestive heart failure) 12/2020 EF 55%, grade II/IV diastolic dysfunction Chronic kidney disease Chronic left sacroiliac joint pain CKD (chronic kidney disease) stage 5, GFR less than 15 ml/min Claustrophobia Compressive atelectasis Congestive heart failure Diabetes mellitus Diabetes mellitus, with long-term current use of insulin Diverticulitis Elevated troponin End stage renal disease End-stage renal disease (ESRD) ESBL (extended spectrum beta-lactamase) producing bacteria infection ESRD (end stage renal disease) on dialysis DAILY (generalized anxiety disorder) Gastroparesis GERD (gastroesophageal reflux disease) Gram-negative bacteremia Hemodialysis catheter dysfunction HTN (hypertension) Hyperlipidemia Hypocalcemia due to chronic kidney disease Hypothyroidism Hypoxemia Light headedness Lumbar back pain Major depression, recurrent Mixed dyslipidemia Noncompliance DOROTEO on CPAP PAD (peripheral artery disease) Partial nontraumatic amputation of left foot (~06/2019) Peripheral vascular disease Peritonitis associated with peritoneal dialysis Phantom pain Pneumonia due to COVID-19 virus (~12/2020) Positive cardiac stress test Sleep apnea Suicidal ideation TIA (transient ischemic attack) Vitamin D deficiency Surgical History AV (arteriovenous fistula) (~10/2020) H/O hysterectomy with oophorectomy History of appendectomy History of cataract surgery History of heart artery stent PCI to LAD, done in [place], [place] 10/2018 ENRIQUE to mid LAD at [facility] 04/2020 History of hysterectomy History of left heart catheterization 04/2020 Findings: 1. There is severe coronary artery disease. 2. FFR of mid LAD was 0.76. 3. Severe OM 2 stenosis. However this is a small sized distal vessel. 4. Mid Left Anterior Descending Coronary Artery was treated with Balloon and Drug Eluting Stent History of right below knee amputation Peritoneal dialysis catheter in place Removed due to recurrent peritonitis S/P cholecystectomy S/P hemodialysis catheter insertion S/P PICC central line placement (~2019) Status post amputation of toe Family History Denies family history of CAD (coronary artery disease) Clotting disorder Dementia Bleeding disorder Social History Smoking and tobacco status: never smoked Alcohol intake: never Household members: spouse and family History of recent travel: No Physical Exam Const: COMMON NORMALS: no acute distress GENERAL APPEARANCE: cooperative and comfortable ORIENTATION/CONSCIOUSNESS: Yes awake, Yes oriented to person, Yes oriented to place and Yes oriented to time HENMT: COMMON NORMALS: normocephalic, atraumatic and hearing grossly normal bilaterally HEAD & SCALP: normocephalic and atraumatic Resp: COMMON NORMALS: normal respiratory effort, No retractions, No use of accessory muscles and clear to auscultation bilaterally AUSCULTATION: clear to auscultation bilaterally Cardio: COMMON NORMALS: regular rate, regular rhythm and No murmurs present (Cardio) RATE: regular rate RHYTHM: regular rhythm GI: COMMON NORMALS: Soft to palpation and No hepatosplenomegaly present AUSCULTATION: Yes normoactive bowel sounds PALPATION: Yes Soft to palpation, No Tenderness to palpation present (GI), No Guarding due to palpation present (GI) and Yes No hepatosplenomegaly present Extremity: OTHER: No edema to left lower extremity right lower extremity surgically absent below the knee Neuro: SENSORIUM/ORIENTATION: Yes oriented to person, Yes oriented to place and Yes oriented to time Skin: COMMON NORMALS: no rashes or lesions noted GENERAL SKIN EXAM: no rashes or lesions noted Course Vital Signs: Vital signs: Vital Signs Temperature 97.7 F 02/14/22 12:19 Pulse Rate 65 02/14/22 12:19 Respiratory Rate 18 02/14/22 12:19 Blood Pressure 161/70 02/14/22 12:19 Pulse Oximetry 97 02/14/22 12:19 Oxygen Delivery Me thod 02/14/22 08:40 MDM - Chest Pain Medical Decision Making Cardiac enzymes negative pain exacerbated by deep inspiration is pleuritic from the draining in the pleural fluid. Her oxygen sats are good. We will discharge her home I did check with the dialysis clinic they states she had a 2-hour run and they felt it would be adequate for her to wait until her next scheduled day on Wednesday. Talked with patient about possibly having her do a full dialysis run on Wednesday to make sure she did not wait too long dialysis clinic felt that was not necessary. Discharge patient home follow-up with primary care return if is further problems. Medical Records I reviewed the patient's medical records. Lab Data I reviewed the patient's lab results. : 02/14/22 08:44 02/14/22 08:44 Radiology Impressions Chest X-Ray 02/14/22 08:31 IMPRESSION: No acute cardiopulmonary abnormality. Laboratory Results WBC 5.6 10^3/uL (4.0-10.0) 02/14/22 08:44 RBC 3.41 10^6/uL (4.1-5.3) L 02/14/22 08:44 Hgb 10.4 g/dL (11.5-15.3) L 02/14/22 08:44 Hct 32.8 % (37.0-47.0) L 02/14/22 08:44 MCV 96.2 fl (81-99) 02/14/22 08:44 MCH 30.5 pg (28.0-34.0) 02/14/22 08:44 MCHC 31.7 g/dL (30.0-36.0) 02/14/22 08:44 RDW 13.7 % (12.1-15.1) 02/14/22 08:44 Plt Count 205 10^3/cmm (130-400) 02/14/22 08:44 MPV 10.9 fL (7.4-10.4) H 02/14/22 08:44 Neut % (Auto) 68.4 % 02/14/22 08:44 Lymph % (Auto) 15.1 % 02/14/22 08:44 [place] % (Auto) 7.3 % 02/14/22 08:44 Eos % (Auto) 7.8 % 02/14/22 08:44 Baso % (Auto) 0.7 % 02/14/22 08:44 Neut # (Auto) 3.85 10^3/uL (1.8-7.7) 02/14/22 08:44 Lymph # (Auto) 0.9 10^3/uL (0.8-4.8) 02/14/22 08:44 [place] # (Auto) 0.4 10^3/uL (0.2-0.9) 02/14/22 08:44 Eos # (Auto) 0.4 10^3/uL (0.0-0.8) 02/14/22 08:44 Baso # (Auto) 0.0 10^3/uL (0.0-0.1) 02/14/22 08:44 Nucleated RBC % (auto) 0 % 02/14/22 08:44 Nucleated RBCs # 0.0 /100WBC 02/14/22 08:44 Sodium 138 mmol/L (136-145) 02/14/22 08:44 Potassium 3.1 mmol/L (3.5-5.1) L 02/14/22 08:44 Chloride 95 mmol/L (98-107) L 02/14/22 08:44 Carbon Dioxide 32 mmol/L (22-29) H 02/14/22 08:44 Anion Gap 14.1 (5-19) 02/14/22 08:44 BUN 13 mg/dL (6-20) 02/14/22 08:44 Creatinine 4.0 mg/dL (0.5-0.9) H 02/14/22 08:44 GFR Calculation 11.5 mL/min (90-130) L 02/14/22 08:44 Glucose 100 mg/dL (65-115) 02/14/22 08:44 Calculated Osmolality 286 mOsm/kg (285-295) 02/14/22 08:44 Calcium 9.9 mg/dL (8.5-10.5) 02/14/22 08:44 Total Bilirubin 0.6 mg/dL (0.15-1.2) 02/14/22 08:44 AST 12 U/L (0-32) 02/14/22 08:44 ALT 8 U/L (0-33) 02/14/22 08:44 Alkaline Phosphatase 80 U/L (35-105) 02/14/22 08:44 Troponin T Baseline 131 ng/L (0-10) H* 02/14/22 08:44 Troponin T 120 Minute 124.0 ng/L (0-10) H 02/14/22 10:57 Delta Troponin T -7.0 ABS# (0-10) L 02/14/22 10:57 Total Protein 6.9 g/dL (6.6-8.7) 02/14/22 08:44 Albumin 3.6 g/dL (3.5-5.2) 02/14/22 08:44 Globulin 3.3 g/dL (1.3-4.6) 02/14/22 08:44 Discharge Plan Discharge Patient Disposition: Home Clinical Impression: Chest pain, pleuritic Condition: Stable Prescriptions: No Action escitalopram oxalate 20 mg tablet 20 mg PO DAILY cyclobenzaprine 10 mg tablet 10 mg PO TID PRN (Reason: muscle spasm) Qty: 30 2RF (DME) pen needle, diabetic [ReliOn Pen [place]] 32 gauge x 5/32 needle See Rx Instructions .ROUTE .MEDSUPPLY Qty: 100 6RF Rx Instructions: use for insulin injections (DME) PROSTHETIC SUPPLIES See Rx Instructions .Route .MEDSUPPLY Qty: 1 0RF Rx Instructions: As directed levothyroxine [Euthyrox] 150 mcg tablet 150 mcg PO QAM Qty: 90 3RF atorvastatin 40 mg tablet 40 mg PO DAILY@20 Qty: 90 3RF clonazepam 0.25 mg tablet,disintegrating 0.25 mg PO BID PRN (Reason: Anxiety) Qty: 30 0RF amlodipine 10 mg tablet 10 mg PO DAILY Qty: 90 1RF pantoprazole 40 mg tablet,delayed release (DR/EC) 40 mg PO DAILY@08 Qty: 90 3RF aspirin 81 mg Tablet,Chewable 81 mg PO DAILY@08 Hold Instructions: Resume on 10/24/21. cholecalciferol (vitamin D3) [Vitamin D3] 25 mcg (1,000 unit) Tablet 25 mcg PO DAILY@08 omega 3-jfx-akl-fish oil [Fish Oil] 300-1,000 mg Capsule,Delayed Release(Dr/E c) 1 cap PO BID@08,20 Glucosamine Chondroitin 550-30-1 mg Capsule 1 cap PO DAILY hydralazine 100 mg tablet 100 mg PO BID isosorbide mononitrate 60 mg tablet extended release 24 hr 60 mg PO DAILY ketorolac 0.5 % drops 1 drp ophthalmic (eye) QID prednisolone acetate 1 % drops,suspension 1 drp ophthalmic (eye) QID tizanidine 4 mg capsule 4 mg PO Q6H PRN (Reason: muscle spasticity) Qty: 20 0RF Rx Instructions: do not exceed 3 doses per 24 hrs tramadol 50 mg tablet 50 mg PO Q8H PRN (Reason: pain) Qty: 10 0RF Dialyvite 100-1 mg tablet 1 tab PO DAILY insulin glargine [Lantus Solostar U-100 Insulin] 100 unit/mL (3 mL) insulin pen 5 unit SUBCUT BID@08,20 Qty: 15 12RF sertraline 50 mg tablet 50 mg PO DAILY carvedilol 12.5 mg tablet 12.5 mg PO BID Constulose 10 gram/15 mL solution 10 g PO DAILY PRN (Reason: Constipation) vancomycin 1,000 mg Recon Soln 125 mg PO QID 9 Days Qty: 36 0RF Discharge Orders: Discharge ED (Routine); Ordered 02/14/22 Ordered By: Karan Daniels Referrals: Jacob Sharp DO [Primary Care Provider] - Discharge Diet: Usual diet Discharge Activity: Increase activity as tolerated Patient Instructions: Opioid Safety Activity Restrictions/Additional Instructions: Follow-up with Dr. Guaman next week. Follow-up with your regularly scheduled dialysis next week as planned. Coding Level of Care Code ED Promotions Firm Accounts Manager for Chg Fwd Exam Detailed
[2022-02-14 09:22] LABS: Alanine Aminotransferase 8 U/L (0-33); Albumin Level 3.6 g/dL (3.5-5.2); Alkaline Phosphatase 80 U/L (35-105); Anion Gap 14.1 (5-19); Aspartate Amino Transferase 12 U/L (0-32); Blood Urea Nitrogen 13 mg/dL (6-20); Calcium 9.9 mg/dL (8.5-10.5); Carbon Dioxide 32 mmol/L (22-29); Chloride 95 mmol/L (98-107); Globulin 3.3 g/dL (1.3-4.6); Glomerular Filtration Rate 11.5 mL/min (90-130); Glucose 100 mg/dL (65-115); Osmolality Calculated 286 mOsm/kg (285-295); Potassium 3.1 mmol/L (3.5-5.1); Sodium 138 mmol/L (136-145); Total Bilirubin 0.6 mg/dL (0.15-1.2); Total Protein 6.9 g/dL (6.6-8.7)
[2022-02-14 09:29] LABS: Troponin(5th) Baseline 131 ng/L (0-10)
--- NOTE | 2022-02-14 10:24 | ECG_ITS ---
[facility] Test Date: 2022-02-14 Pat Name: Rizwana Herzog Department: Room: Gender: Female [employer]: : 1965 Requested By: Karan Lepe Order Number: [id number] Catherine MD: Dong Pitt M.D. Measurements Intervals [place] Rate: 65 P: 163 TX: 199 QRS: -60 QRSD: 95 T: 69 QT: 418 QTc: 435 Interpretive Statements SINUS RHYTHM LEFT AXIS DEVIATION [QRS AXIS < -30] POSSIBLE ANTERIOR MYOCARDIAL INFARCTION , OF INDETERMINATE AGE [30 ms Q WAVE IN V3/V4, OR R < 0.2 mV IN V4] Compared to ECG 02/14/2022 08:36:16 No significant changes Electronically Signed On 02-15-2022 13:29:45 CDT by Dong Pitt M.D. [id number]
[2022-02-14 12:19] VITALS: BP 161/70; PULSE 65; RESP 18; TEMP 36.5; O2SAT 97
== END 2022-02-14 12:20 | disposition home or self-care (01) ==
PROVIDERS: Emergency Provider Family Medicine; PCP Family Medicine
DX: R09.1 Pleurisy (principal); Z79.82 Long term (current) use of aspirin; Z79.4 Long term (current) use of insulin; Z89.511 Acquired absence of right leg below knee; I13.2 Hypertensive heart and chronic kidney disease with heart failure and with stage 5 chronic kidney disease, or end stage renal disease; E11.22 Type 2 diabetes mellitus with diabetic chronic kidney disease; N18.6 End stage renal disease; I50.9 Heart failure, unspecified; I25.10 Atherosclerotic heart disease of native coronary artery without angina pectoris; E78.2 Mixed hyperlipidemia; Z86.73 Personal history of transient ischemic attack (TIA), and cerebral infarction without residual deficits
CPT/HCPCS: 71045; 80053; 84484; 85025; 93005; 99285

== ENCOUNTER 2022-03-13 13:12 | Emergency (ER) | payer MEDICARE, MEDICAID, SELFPAY ==
[2022-03-13 13:20] VITALS: BP 158/67; PULSE 55; RESP 18; TEMP 36.7; O2SAT 98; BMI 30.2
--- NOTE | 2022-03-13 13:30 | XR_ITS ---
WS: [id number] XR thoracic spine 3V* [id number] REASON FOR EXAM: upper back pain after fall FINDINGS: Relatively normal spinal curvature on the AP and lateral views. Mild wedge-shaped compression deformity of T2 unchanged compared to the thoracic spine images of [facility] t CT scan 01/02/2022. No other significant thoracic vertebral body abnormality. Mild narrowing of the intervertebral disc spaces with small marginal osteophytosis in the lower thora cic spine XR/XR thoracic spine 3V* [id number] IMPRESSION: No acute abnormality of the thoracic spine. Incidentally noted are chronic interstitial lung and pleural changes in the low er hemithoraces.
--- NOTE | 2022-03-13 13:30 | XR_ITS ---
WS: [id number] XR hip RT 2-3V wo/w pel* [id number] REASON FOR EXAM: fall with hip pain FINDINGS: Joint spaces intact and relatively well-preserved. Mild subchondral sclerosis and osteophytosis of the acetabulum. No fracture identified. The hip appears relatively unchanged compared to 11/09/2017. XR/XR hip RT 2-3V wo/w pel* [id number] IMPRESSION: No acute abnormality.
--- NOTE | 2022-03-13 13:31 | ED_ITS ---
HPI - Back Pain/Injury General: Chief Complaint: Back Pain/Injury Stated Complaint: BACK PAIN Time Seen by Provider: 03/13/22 13:24 Source: patient Mode of arrival: EMS Limitations: no limitations History of Present Illness: 57-year-old female presents to the ER today for right hip pain and left upper back and shoulder pain x2 weeks. Patient reports 2 weeks ago she fell while trying to use her walker. Patient reports since then she has had continued right hip and upper back pain. Patient reports she falls frequently and has had multiple rounds of imaging done through the ER. She reports she did not come this time because she never has any thing done when she comes to the ER so she reports she just quit coming. Patient reports however that the pain is just not getting better and she wanted to make sure that there was nothing else wrong. Patient denies any numbness or tingling. Denies any loss of bowel or bladder control. Patient denies any neurological deficits. Review of Systems General: Reports: 10 or more systems reviewed and unremarkable except in HPI and below PFSH ED PFSH: Medical History Acute dyspnea Acute hyperkalemia Adjustment disorder with mixed disturbance of emotions and conduct Anemia in chronic kidney disease Anxiety Anxiety and depression BPPV (benign paroxysmal positional vertigo) CAD (coronary artery disease) Carotid stenosis 04/2020: Right < 50%, Left near 70% CHF exacerbation Chronic diastolic CHF (congestive heart failure) 12/2020 EF 55%, grade II/IV diastolic dysfunction Chronic kidney disease Chronic left sacroiliac joint pain CKD (chronic kidney disease) stage 5, GFR less than 15 ml/min Claustrophobia Compressive atelectasis Congestive heart failure Diabetes mellitus Diabetes mellitus, with long-term current use of insulin Diverticulitis Elevated troponin End stage renal disease End-stage renal disease (ESRD) ESBL (extended spectrum beta-lactamase) producing bacteria infection ESRD (end stage renal disease) on dialysis DAILY (generalized anxiety disorder) Gastroparesis GERD (gastroesophageal reflux disease) Gram-negative bacteremia Hemodialysis catheter dysfunction HTN (hypertension) Hyperlipidemia Hypocalcemia due to chronic kidney disease Hypothyroidism Hypoxemia Light headedness Lumbar back pain Major depression, recurrent Mixed dyslipidemia Noncompliance DOROTEO on CPAP PAD (peripheral artery disease) Partial nontraumatic amputation of left foot (~06/2019) Peripheral vascular disease Peritonitis associated with peritoneal dialysis Phantom pain Pneumonia due to COVID-19 virus (~12/2020) Positive cardiac stress test Sleep apnea Suicidal ideation TIA (transient ischemic attack) Vitamin D deficiency Surgical History AV (arteriovenous fistula) (~10/2020) H/O hysterectomy with oophorectomy History of appendectomy History of cataract surgery History of heart artery stent PCI to LAD, done in [place], [place] 10/2018 ENRIQUE to mid LAD at [facility] 04/2020 History of hysterectomy History of left heart catheterization 04/2020 Findings: 1. There is severe coronary artery disease. 2. FFR of mid LAD was 0.76. 3. Severe OM 2 stenosis. However this is a small sized distal vessel. 4. Mid Left Anterior Descending Coronary Artery was treated with Balloon and Drug Eluting Stent History of right below knee amputation Peritoneal dialysis catheter in place Removed due to recurrent peritonitis S/P cholecystectomy S/P hemodialysis catheter insertion S/P PICC central line placement (~2019) Status post amputation of toe Family History Denies family history of CAD (coronary artery disease) Clotting disorder Dementia Bleeding disorder Social History Smoking and tobacco status: never smoked Alcohol intake: never Household members: spouse and family History of recent travel: No Female Reproductive History: Spontaneous abortions: No Physical Exam Const: COMMON NORMALS: no acute distress, patient oriented x3, no limitations and alert Resp: COMMON NORMALS: normal respiratory effort, No retractions and clear to auscultation bilaterally AUSCULTATION: clear to auscultation bilaterally Cardio: COMMON NORMALS: regular rate and regular rhythm RATE: regular rate RHYTHM: regular rhythm Back/Pelvis: THORACIC SPINE/UPPER BACK: Yes thoracic ROM normal and Yes paraspinal muscle tenderness Thoracic paraspinal muscle tenderness: left Left thoracic paraspinal muscle tenderness: T1 and T2 Extremity: NARRATIVE EXTREMITY EXAM: Patient is an amputee of the right lower extremity. She is in a wheelchair in the ER and reports pain with any weightbearing. Patient is able to flex at the hip in the wheelchair. Neuro: COMMON NORMALS: patient oriented x3 SENSORIUM/ORIENTATION: Yes alert Psych: COMMON NORMALS: mental status grossly normal, Normal thought process present and cooperative THOUGHT PROCESS: Normal thought process present Skin: COMMON NORMALS: no rashes or lesions noted and no wounds GENERAL SKIN EXAM: no rashes or lesions noted Course ED course: The 7-year-old female presents to the ER today for right hip pain and upper back pain for the last 2 weeks. Patient reports she fell about 2 weeks ago and has had continued pain. She has a history of falls and chronic pain. Patient has a significant past medical history. Patient does not have any new neurological deficits however given the continued pain we will get an x- ray of the hip and also the thoracic spine. Vital Signs: Vital signs: Vital Signs Temperature 98.1 F 03/13/22 13:20 Pulse Rate 55 L 03/13/22 13:20 Respiratory Rate 18 03/13/22 13:20 Blood Pressure 158/67 03/13/22 13:20 Pulse Oximetry 98 03/13/22 13:20 Oxygen Delivery Me thod 03/13/22 13:20 MDM - Back Pain/Injury Medical Decision Making Patient has some arthritic changes noted of the right hip on x-ray. She also has a chronic compression fracture of the thoracic spine. Likely this is where her pain is stemming from. I discussed findings with patient. I would recomme nd she follow-up with her PCP next week. I will give her something for pain at this time but rest is recommended. She should follow-up to discuss pain control chronically. Patient verbalized understanding and was in agreement with the treatment plan. Labs Radiology Impressions Hip/Pelvis X-Ray 03/13/22 13:30 IMPRESSION: No acute abnormality. Thoracic Spine X-Ray 03/13/22 13:30 IMPRESSION: No acute abnormality of the thoracic spine. Incidentally noted are chronic interstitial lung and pleural changes in the lower hemithoraces. Critical Care Time Critical Care Time: Critical Care Time: No Discharge Plan Discharge Patient Disposition: Home Clinical Impression: Chronic midline thoracic back pain Osteoarthritis of right hip Qualifiers: Osteoarthritis type: unspecified Qualified Code(s): M16.11 - Unilateral primary osteoarthritis, right hip Condition: Stable Prescriptions: New hydrocodone-acetaminophen 5-325 mg tablet 1 tab PO Q8H PRN (Reason: pain) Qty: 12 0RF No Action escitalopram oxalate 20 mg tablet 20 mg PO DAILY cyclobenzaprine 10 mg tablet 10 mg PO TID PRN (Reason: muscle spasm) Qty: 30 2RF tramadol 50 mg tablet 50 mg PO Q8H PRN (Reason: pain) Qty: 90 0RF tizanidine 4 mg capsule 4 mg PO Q6H PRN (Reason: muscle spasticity) Qty: 60 2RF Rx Instructions: do not exceed 3 doses per 24 hrs ketoconazole 2 % cream 1 applic topical DAILY Qty: 30 0RF clonazepam 0.25 mg tablet,disintegrating 0.25 mg PO BID PRN (Reason: Anxiety) Qty: 30 0RF pantoprazole 40 mg tablet,delayed release (DR/EC) 40 mg PO DAILY@08 Qty: 90 1RF (DME) pen needle, diabetic [ReliOn Pen [place]] 32 gauge x 5/32 needle See Rx Instructions .ROUTE .MEDSUPPLY Qty: 100 6RF Rx Instructions: use for insulin injections (DME) PROSTHETIC SUPPLIES See Rx Instructions .Route .MEDSUPPLY Qty: 1 0RF Rx Instructions: As directed levothyroxine [Euthyrox] 150 mcg tablet 150 mcg PO QAM Qty: 90 3RF atorvastatin 40 mg tablet 40 mg PO DAILY@20 Qty: 90 3RF amlodipine 10 mg tablet 10 mg PO DAILY Qty: 90 1RF aspirin 81 mg Tablet,Chewable 81 mg PO DAILY@08 Hold Instructions: Resume on 10/24/21. cholecalciferol (vitamin D3) [Vitamin D3] 25 mcg (1,000 unit) Tablet 25 mcg PO DAILY@08 omega 9-nrv-dmi-fish oil [Fish Oil] 300-1,000 mg Capsule,Delayed Release(Dr/Ec) 1 cap PO BID@08,20 Glucosamine Chondroitin 550-30-1 mg Capsule 1 cap PO DAILY hydralazine 100 mg tablet 100 mg PO BID isosorbide mononitrate 60 mg tablet extended release 24 hr 60 mg PO DAILY ketorolac 0.5 % drops 1 drp ophthalmic (eye) QID prednisolone acetate 1 % drops,suspension 1 drp ophthalmic (eye) QID Dialyvite 100-1 mg tablet 1 tab PO DAILY insulin glargine [Lantus Solostar U-100 Insulin] 100 unit/mL (3 mL) insulin pen 5 unit SUBCUT BID@08,20 Qty: 15 12RF sertraline 50 mg tablet 50 mg PO DAILY carvedilol 12.5 mg tablet 12.5 mg PO BID Constulose 10 gram/15 mL solution 10 g PO DAILY PRN (Reason: Constipation) Discharge Orders: Discharge ED (Routine); Ordered 03/13/22 Ordered By: Jessica Hartley Referrals: Jacob Sharp DO [Primary Care Provider] - Discharge Diet: Usual diet Discharge Activity: Increase activity as tolerated Patient Instructions: Opioid Safety, Pain Management Activity Restrictions/Additional Instructions: Take hydrocodone as prescribed. Rest recommended. Follow-up with PCP in 3 to 5 days. Return to the ER with new or worsening symptoms. Coding Level of Care Code ED Professional Employer Consultant for Maris Braden
== END 2022-03-13 15:47 | disposition home or self-care (01) ==
PROVIDERS: Emergency Provider Physician Assistant; PCP Family Medicine
DX: M16.11 Unilateral primary osteoarthritis, right hip (principal); G89.29 Other chronic pain; M54.6 Pain in thoracic spine; Z79.82 Long term (current) use of aspirin; Z79.4 Long term (current) use of insulin; Z89.511 Acquired absence of right leg below knee; I25.10 Atherosclerotic heart disease of native coronary artery without angina pectoris; I13.2 Hypertensive heart and chronic kidney disease with heart failure and with stage 5 chronic kidney disease, or end stage renal disease; E11.22 Type 2 diabetes mellitus with diabetic chronic kidney disease; N18.6 End stage renal disease; I50.32 Chronic diastolic (congestive) heart failure; E78.2 Mixed hyperlipidemia; Z86.73 Personal history of transient ischemic attack (TIA), and cerebral infarction without residual deficits
CPT/HCPCS: 72072; 73502; 99283

== ENCOUNTER 2022-03-22 11:17 | Emergency (ER) | payer MEDICARE, MEDICAID, SELFPAY ==
[2022-03-22] VITALS (91 sets, daily range): BP systolic 135–177; BP diastolic 57–72; PULSE 70–92; RESP 18–20; TEMP 37; O2SAT 83–100; BMI 30.2
--- NOTE | 2022-03-22 11:39 | W.ED.SOB ---
HPI - SOB/Dyspnea General: Chief Complaint: Shortness of Breath/Dyspnea Stated Complaint: SOB, on O2 Time Seen by Provider: 03/22/22 11:39 History of Present Illness: HPI Narrative: Ms. Herzog is a 57-year-old lady with complex past medical history including end-stage renal disease on hemodialysis presenting to the emergency department due to concern for worsening shortness of breath. She does have chronic hypoxic respiratory failure of unclear etiology and is typically on 3 L via nasal cannula however is increase this to 6. Symptoms started approximately 2 days ago preceded by few days of cough. She now is shortness of breath with exertion and cough as well as generalized malaise. Intensity symptoms is moderate. Course is worsened. Symptoms are worse with exertion. She reports compliance with dialysis regimen including full run of dialysis on Wednesday. No other specific changes in health, exacerbating, or alleviating factors identified. Onset (ago): day(s) Timing: progressively worsening Severity: moderate Known history of: other Review of Systems General: Reports: 10 or more systems reviewed and unremarkable except in HPI and below PFSH ED PFSH: Medical History Acute dyspnea Acute hyperkalemia Adjustment disorder with mixed disturbance of emotions and conduct Anemia in chronic kidney disease Anxiety Anxiety and depression BPPV (benign paroxysmal positional vertigo) CAD (coronary artery disease) Carotid stenosis 04/2020: Right < 50%, Left near 70% CHF exacerbation Chronic diastolic CHF (congestive heart failure) 12/2020 EF 55%, grade II/IV diastolic dysfunction Chronic kidney disease Chronic left sacroiliac joint pain CKD (chronic kidney disease) stage 5, GFR less than 15 ml/min Claustrophobia Compressive atelectasis Congestive heart failure Diabetes mellitus Diabetes mellitus, with long-term current use of insulin Diverticulitis Elevated troponin End stage renal disease End-stage renal disease (ESRD) ESBL (extended spectrum beta-lactamase) producing bacteria infection ESRD (end stage renal disease) on dialysis DAILY (generalized anxiety disorder) Gastroparesis GERD (gastroesophageal reflux disease) Gram-negative bacteremia Hemodialysis catheter dysfunction HTN (hypertension) Hyperlipidemia Hypocalcemia due to chronic kidney disease Hypothyroidism Hypoxemia Light headedness Lumbar back pain Major depression, recurrent Mixed dyslipidemia Noncompliance DOROTEO on CPAP PAD (peripheral artery disease) Partial nontraumatic amputation of left foot (~06/2019) Peripheral vascular disease Peritonitis associated with peritoneal dialysis Phantom pain Pneumonia due to COVID-19 virus (~12/2020) Positive cardiac stress test Sleep apnea Suicidal ideation TIA (transient ischemic attack) Vitamin D deficiency Surgical History AV (arteriovenous fistula) (~10/2020) H/O hysterectomy with oophorectomy History of appendectomy History of cataract surgery History of heart artery stent PCI to LAD, done in [place], [place] 10/2018 ENRIQUE to mid LAD at [facility] 04/2020 History of hysterectomy History of left heart catheterization 04/2020 Findings: 1. There is severe coronary artery disease. 2. FFR of mid LAD was 0.76. 3. Severe OM 2 stenosis. However this is a small sized distal vessel. 4. Mid Left Anterior Descending Coronary Artery was treated with Balloon and Drug Eluting Stent History of right below knee amputation Peritoneal dialysis catheter in place Removed due to recurrent peritonitis S/P cholecystectomy S/P hemodialysis catheter insertion S/P PICC central line placement (~2019) Status post amputation of toe Family History Denies family history of CAD (coronary artery disease) Clotting disorder Dementia Bleeding disorder Social History Smoking and tobacco status: never smoked Alcohol intake: never Household members: spouse and family History of recent travel: No Female Reproductive History: Spontaneous abortions: No Physical Exam Const: COMMON NORMALS: alert GENERAL APPEARANCE: cooperative, well developed and ill appearing (Somewhat) HENMT: COMMON NORMALS: normocephalic and atraumatic HEAD & SCALP: normocephalic and atraumatic Eye: COMMON NORMALS: conjunctivae normal CONJUNCTIVA: Yes conjunctivae normal SCLERA: sclerae normal Neck/C-Spine: COMMON NORMALS: supple GENERAL: Yes trachea midline Resp: EFFORT & INSPECTION: Yes tachypneic AUSCULTATION: diminished lung sounds on the right in the lower lung desir Cardio: COMMON NORMALS: regular rate and regular rhythm RATE: regular rate RHYTHM: regular rhythm GI: COMMON NORMALS: Soft to palpation PALPATION: Yes Soft to palpation and No Tenderness to palpation present (GI) Extremity: NARRATIVE EXTREMITY EXAM: Prior right lower extremity amputation GENERAL: Yes normal exam except as noted and No edema Neuro: COMMON NORMALS: moves all extremities SENSORIUM/ORIENTATION: Yes alert and No Orientation impaired Psych: COMMON NORMALS: mental status grossly normal and Normal thought process present THOUGHT PROCESS: Normal thought process present Course ED course: - Patient was seen and evaluated by me at bedside - Patient placed on cardiac monitors, IV access obtained - Initial evaluation notable for exam as above. - Labs and xrays personally interpreted by me. EKG shows sinus rhythm with nonspecific ST segment abnormalities, no STEMI. -Analgesia given - Labs notable for leukopenia, normal hemoglobin. Metabolic panel without emergent need for dialysis, there is evidence of metabolic stress. Troponin elevated with repeat decreased likely secondary to volume overload, infection, and end-stage renal disease. Procalcitonin is positive. - Imaging notable for patchy opacities concerning for pneumonia. No pneumothorax. -Antibiotics given - Upon serial reexamination after treatment the patient was mildly improved though still requiring oxygen greater than baseline. - Based on patient history, evaluation, and testing as interpreted the most likely cause of the patient's condition is pneumonia with acute on chronic hypoxic respiratory failure. - The results of ED evaluation were discussed with the patient including plan for transfer due to requirement for level of care not available if discharged to prevent significant worsening/deterioration. -Patient requires admission for her pneumonia however I am certain during hospitalization she will require inpatient dialysis which is not available at our facility at this time. Note: Click bubbles or prepopulated desir in note writing are used for assistance with data collection and billing and are inherently more limited than narrative and other text portions of this note. Please use narrative for additional clinical history and defer to narrative/free test for any case of contradictory information. If information appears in only free text or click bubble it should be considered present or absent as reported. Please contact note sql report writer for clarifications of clinical information or contradictory information. MDM is a brief summary, contradictory or erroneous seeming information should be clarified and full note should be reviewed. Vital Signs: Vital signs: Vital Signs Temperature 98.6 F 03/22/22 11:22 Pulse Rate 70 03/22/22 19:31 Respiratory Rate 18 03/22/22 19:31 Blood Pressure 135/57 03/22/22 19:31 Pulse Oximetry 94 03/22/22 19:31 Oxygen Delivery Me thod 03/22/22 11:22 Oxygen Flow Rate 6 03/22/22 11:22 MDM - SOB/Dyspnea Medical Decision Making 57-year-old lady presenting with worsening respiratory status. Patient found have pneumonia with acute on chronic hypoxic respiratory failure. She has a history of end-stage renal disease. She requires admission for treatment of pneumonia however we do not have capability to perform inpatient hemodialysis at this time and therefore patient requires transfer. She is agreeable to plan. Medical Records I reviewed the patient's medical records. Lab Data I reviewed the patient's lab results. : 03/22/22 11:48 03/22/22 11:48 Labs/Radiology: Radiology Impressions Chest X-Ray 03/22/22 11:40 IMPRESSION: Patchy opacities in the mid to lower lung desir, consistent with pneumonia. Laboratory Results WBC 2.9 10^3/uL (4.0-10.0) L 03/22/22 11:48 RBC 3.68 10^6/uL (4.1-5.3) L 03/22/22 11:48 Hgb 11.9 g/dL (11.5-15.3) 03/22/22 11:48 Hct 36.5 % (37.0-47.0) L 03/22/22 11:48 MCV 99.2 fl (81-99) H 03/22/22 11:48 MCH 32.3 pg (28.0-34.0) 03/22/22 11:48 MCHC 32.6 g/dL (30.0-36.0) 03/22/22 11:48 RDW 15.2 % (12.1-15.1) H 03/22/22 11:48 Plt Count 147 10^3/cmm (130-400) 03/22/22 11:48 MPV 10.5 fL (7.4-10.4) H 03/22/22 11:48 Neut % (Auto) 70.3 % 03/22/22 11:48 Lymph % (Auto) 17.5 % 03/22/22 11:48 [place] % (Auto) 8.7 % 03/22/22 11:48 Eos % (Auto) 2.1 % 03/22/22 11:48 Baso % (Auto) 0.7 % 03/22/22 11:48 Neut # (Auto) 2.01 10^3/uL (1.8-7.7) 03/22/22 11:48 Lymph # (Auto) 0.5 10^3/uL (0.8-4.8) L 03/22/22 11:48 [place] # (Auto) 0.3 10^3/uL (0.2-0.9) 03/22/22 11:48 Eos # (Auto) 0.1 10^3/uL (0.0-0.8) 03/22/22 11:48 Baso # (Auto) 0.0 10^3/uL (0.0-0.1) 03/22/22 11:48 Nucleated RBC % (auto) 0 % 03/22/22 11:48 Nucleated RBCs # 0.0 /100WBC 03/22/22 11:48 Sodium 138 mmol/L (136-145) 03/22/22 11:48 Potassium 3.5 mmol/L (3.5-5.1) 03/22/22 11:48 Chloride 90 mmol/L (98-107) L 03/22/22 11:48 Carbon Dioxide 30 mmol/L (22-29) H 03/22/22 11:48 Anion Gap 21.5 (5-19) H 03/22/22 11:48 BUN 24 mg/dL (6-20) H 03/22/22 11:48 Creatinine 5.7 mg/dL (0.5-0.9) H* 03/22/22 11:48 GFR Calculation 7.6 mL/min (90-130) L 03/22/22 11:48 Glucose 99 mg/dL (65-115) 03/22/22 11:48 Calculated Osmolality 290 mOsm/kg (285-295) 03/22/22 11:48 Lactic Acid 0.8 mmol/L (0.5-2.2) 03/22/22 13:07 Calcium 11.0 mg/dL (8.5-10.5) H 03/22/22 11:48 Total Bilirubin 0.9 mg/dL (0.15-1.2) 03/22/22 11:48 AST 26 U/L (0-32) 03/22/22 11:48 ALT 13 U/L (0-33) 03/22/22 11:48 Alkaline Phosphatase 87 U/L (35-105) 03/22/22 11:48 Troponin T Baseline 355 ng/L (0-10) H* 03/22/22 11:48 Troponin T 120 Minute 295.2 ng/L (0-10) H 03/22/22 13:23 Delta Troponin T -59.8 ABS# (0-10) L 03/22/22 13:23 Troponin T Hi Sens 6Hr 321.5 ng/L (0-10) H 03/22/22 18:35 Troponin T Hi Sens 6Hr Delta -33.5 ng/L (0-12) L 03/22/22 18:35 NT-Pro-B Natriuret Pep 25868 pg/mL (0-125) H 03/22/22 11:48 Total Protein 7.4 g/dL (6.6-8.7) 03/22/22 11:48 Albumin 4.2 g/dL (3.5-5.2) 03/22/22 11:48 Globulin 3.2 g/dL (1.3-4.6) 03/22/22 11:48 Procalcitonin 0.55 ng/mL (0-0.5) H 03/22/22 11:48 Coronavirus 229E (PCR) Not detected (NOT DETECT) 03/22/22 13:05 RSV Type A (PCR) Detected (NOT DETECT) A 03/22/22 16:25 RSV Type B (PCR) Not detected (NOT DETECT) 03/22/22 16:25 SARS-CoV-2 (PCR) Not detected (NOT DETECT) 03/22/22 13:05 SARS-CoV-2 Ag (Rapid) negative (Negative) 03/22/22 12:45 Critical Care Time Critical Care Time: Critical Care Time: Yes Total Critical Care Time: 35 Attestation: Due to a high probability of clinically significant, possibly life threatening deterioration, the patient required my highest level of attention and preparedness to intervene emergently and I personally spent this critical care time directly and personally managing the patient. This critical care time included obtaining a history; examining the patient; pulse oximetry; ordering and review of laboratory and imaging studies; arranging urgent treatment with development of a management plan; evaluation of patient's response to treatment; frequent reassessment; and, discussions with other providers as applicable. It was exclusive of separately billable procedures. Discharge Plan Discharge Patient Disposition: Xfer Short-Term Hosp Clinical Impression: Pneumonia, End-stage renal disease needing dialysis, Acute and chronic respiratory failure with hypoxia Condition: Stable Referrals: Jacob Sharp DO [Primary Care Provider] - Coding Level of Care Code ED Electrical Machinist for Chg Fwd Exam Comprehensive
--- NOTE | 2022-03-22 11:40 | XRR_ITS ---
PROCEDURE INFORMATION: Exam: XR Chest Exam date and time: 03/22/2022 11:55 AM Age: 57 years old Clinical indication: Shortness of breath; Additional info: SOB TECHNIQUE: Imaging protocol: Radiologic exam of the chest. Views: 1 view. COMPARISON: CR (CHEST, ) 02/14/2022 8:43 AM FINDINGS: Lungs: There are patchy opacities in the mid to lower lung desir. Pleural spaces: Unremarkable. No pleural effusion. No pneumothorax. Heart/Mediastinum: Heart border is somewhat obscured by the patchy pulmonary opacities. Bones/joints: Unremarkable. XR/XR chest 1V portable [id number] IMPRESSION: Patchy opacities in the mid to lower lung desir, consistent with pneumonia.
--- NOTE | 2022-03-22 11:53 | ECG_ITS ---
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 Measurements Intervals [place] Rate: 60 P: -60 TX: 175 QRS: -55 QRSD: 98 T: 68 QT: 442 QTc: 442 Interpretive Statements SINUS RHYTHM LEFT AXIS DEVIATION [QRS AXIS < -30] POSSIBLE ANTERIOR MYOCARDIAL INFARCTION , OF INDETERMINATE AGE [30 ms Q WAVE IN V3/V4, OR R < 0.2 mV IN V4] Compared to ECG 02/14/2022 10:24:10 No significant changes Electronically Signed On 03-22-2022 21:58:25 CDT by Dong Pitt M.D. [id number]
[2022-03-22 11:57] LABS: Basophils % 0.7 %; Eosinophils # 0.1 10^3/uL (0.0-0.8); Eosinophils % 2.1 %; Hematocrit 36.5 % (37.0-47.0); Hemoglobin 11.9 g/dL (11.5-15.3); Lymphocytes # 0.5 10^3/uL (0.8-4.8); Lymphocytes % 17.5 %; Mean Corpuscular HGB Conc 32.6 g/dL (30.0-36.0); Mean Corpuscular Hemoglobin 32.3 pg (28.0-34.0); Mean Corpuscular Volume 99.2 fl (81-99); Mean Platelet Volume 10.5 fL (7.4-10.4); Monocytes # 0.3 10^3/uL (0.2-0.9); Monocytes % 8.7 %; Neutrophils # 2.01 10^3/uL (1.8-7.7); Neutrophils % 70.3 %; Nucleated Red Blood Cells % 0 %; Platelet Count 147 10^3/cmm (130-400); Red Blood Count 3.68 10^6/uL (4.1-5.3); Red Cell Distribution Width 15.2 % (12.1-15.1); White Blood Count 2.9 10^3/uL (4.0-10.0)
[2022-03-22 12:17] LABS: Troponin(5th) Baseline 355 ng/L (0-10)
[2022-03-22 12:22] LABS: Alanine Aminotransferase 13 U/L (0-33); Albumin Level 4.2 g/dL (3.5-5.2); Alkaline Phosphatase 87 U/L (35-105); Anion Gap 21.5 (5-19); Aspartate Amino Transferase 26 U/L (0-32); Blood Urea Nitrogen 24 mg/dL (6-20); Carbon Dioxide 30 mmol/L (22-29); Chloride 90 mmol/L (98-107); Globulin 3.2 g/dL (1.3-4.6); Glomerular Filtration Rate 7.6 mL/min (90-130); Glucose 99 mg/dL (65-115); Osmolality Calculated 290 mOsm/kg (285-295); Potassium 3.5 mmol/L (3.5-5.1); Sodium 138 mmol/L (136-145); Total Bilirubin 0.9 mg/dL (0.15-1.2); Total Protein 7.4 g/dL (6.6-8.7)
[2022-03-22 12:37] LABS: Procalcitonin 0.55 ng/mL (0-0.5)
[2022-03-22] MEDS: cefepime 2,000 MG in sodium chloride 0.9% (plus) 50 ML 100 MG IV (13:11)
[2022-03-22 13:35] LABS: Lactic Sepsis W/Reflex 0.8 mmol/L (0.5-2.2)
--- NOTE | 2022-03-22 13:50 | ECG_ITS ---
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 Measurements Intervals [place] Rate: 62 P: -59 MA: 173 QRS: -51 QRSD: 94 T: 68 QT: 416 QTc: 424 Interpretive Statements SINUS RHYTHM LEFT AXIS DEVIATION [QRS AXIS < -30] PATTERN CONSISTENT WITH PULMONARY DISEASE NONSPECIFIC T-WAVE ABNORMALITY Compared to ECG 03/22/2022 11:53:15 T-wave abnormality now present Myocardial infarct finding no longer present Electronically Signed On 03-22-2022 22:06:43 CDT by Dong Pitt M.D. [id number]
[2022-03-22 13:59] LABS: Troponin 5 2HR Delta -59.8 ABS# (0-10)
[2022-03-22 14:00] LABS: Troponin 5 2HR 295.2 ng/L (0-10)
[2022-03-22 14:13] LABS: SARS Covid-2 Antigen negative (Negative)
[2022-03-22 15:37] LABS: Adenovirus Not Detected (NOT DETECT); Chlamydia Pneumoniae Not Detected (NOT DETECT); Coronavirus 229E,HKU1,NL63,OC4 Not Detected (NOT DETECT); Human Metapneumovirus Not Detected (NOT DETECT); Human Rhinovirus/Enterovirus Not Detected (NOT DETECT); Influenza A Not Detected (NOT DETECT); Influenza A H1 Not Detected (NOT DETECT); Influenza A H1-2009 Not Detected (NOT DETECT); Influenza A H3 Not Detected (NOT DETECT); Influenza B Not Detected (NOT DETECT); Mycoplasma Pneumoniae Not Detected (NOT DETECT); Parainfluenza Virus Type 1 Not Detected (NOT DETECT); Parainfluenza Virus Type 2 Not Detected (NOT DETECT); Parainfluenza Virus Type 3 Not Detected (NOT DETECT); Parainfluenza Virus Type 4 Not Detected (NOT DETECT); Respiratory Syncytial Virus A Detected (NOT DETECT); Respiratory Syncytial Virus B Not Detected (NOT DETECT); SARS-COV-2 Not Detected (NOT DETECT)
[2022-03-22 16:25] LABS: Respiratory Syncytial Virus A Detected (NOT DETECT); Respiratory Syncytial Virus B Not Detected (NOT DETECT); Results from Genmark
[2022-03-22] MEDS: morphine 4 mg/mL SDV 1 mL IVP (16:51)
[2022-03-22] MEDS: vancomycin 1,500 MG/300 ML PIGGYBACK 200 MG IV (16:52)
--- NOTE | 2022-03-22 17:42 | ECG_ITS ---
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 Measurements Intervals [place] Rate: 55 P: -46 FL: 180 QRS: -49 QRSD: 95 T: 62 QT: 461 QTc: 442 Interpretive Statements SINUS BRADYCARDIA LEFT AXIS DEVIATION [QRS AXIS < -30] PATTERN CONSISTENT WITH PULMONARY DISEASE NONSPECIFIC T-WAVE ABNORMALITY Compared to ECG 03/22/2022 13:50:18 Sinus rhythm no longer present T-wave abnormality still present Electronically Signed On 03-22-2022 22:04:45 CDT by Dong Pitt M.D. [id number]
[2022-03-22 20:01] LABS: Troponin 5 6HR Delta -33.5 ng/L (0-12)
[2022-03-22 20:02] LABS: Troponin 5 6HR 321.5 ng/L (0-10)
== END 2022-03-22 19:35 | disposition short-term general hospital (02) ==
PROVIDERS: Emergency Provider Emergency Medicine; PCP Family Medicine
DX: J96.21 Acute and chronic respiratory failure with hypoxia (principal); J18.9 Pneumonia, unspecified organism; I13.2 Hypertensive heart and chronic kidney disease with heart failure and with stage 5 chronic kidney disease, or end stage renal disease; E11.22 Type 2 diabetes mellitus with diabetic chronic kidney disease; N18.6 End stage renal disease; I50.9 Heart failure, unspecified; Z99.2 Dependence on renal dialysis; I25.10 Atherosclerotic heart disease of native coronary artery without angina pectoris; E78.2 Mixed hyperlipidemia; Z86.73 Personal history of transient ischemic attack (TIA), and cerebral infarction without residual deficits; Z89.511 Acquired absence of right leg below knee; Z20.822 Contact with and (suspected) exposure to COVID-19
CPT/HCPCS: 36415; 71045; 80053; 83605; 83880; 84145; 84484; 85025; 87040; 87426; 87635; 87801; 93005; 96365; 96366; 96367; 96375; 99285; J0692; J2270; J3370

== ENCOUNTER 2022-04-25 07:21 | Inpatient (IN) | payer MEDICARE, MEDICAID, SELFPAY ==
[2022-04-25] VITALS (61 sets, daily range): BP systolic 149–195; BP diastolic 70–87; PULSE 60–84; RESP 4–29; TEMP 36.9–37.5; O2SAT 91–99
--- NOTE | 2022-04-25 07:31 | XRR_ITS ---
PROCEDURE INFORMATION: Exam: XR Chest Exam date and time: 04/25/2022 8:50 AM Age: 57 years old Clinical indication: Pain; Chest pressure; Additional info: Chest pain TECHNIQUE: Imaging protocol: Radiologic exam of the chest. Views: 1 view. COMPARISON: CR (CHEST, ) 03/22/2022 11:55 AM FINDINGS: Lungs: Bibasilar airspace opacities are improved relative to 03/22/2022. There are some minimal residual opacities in the right greater than lower lungs. Pleural spaces: Probable small bilateral pleural effusions. No pneumothorax. Heart/Mediastinum: Unremarkable. No cardiomegaly. Bones/joints: Unremarkable. XR/XR chest 1V portable [id number] IMPRESSION: Improved multilobar pneumonia relative to 03/22/2022. There are some minimal residual opacities in the right greater than lower lungs.
--- NOTE | 2022-04-25 07:33 | W.ED.CHESTPA ---
HPI - Chest Pain General: Chief Complaint: Chest Pain Stated Complaint: CHEST PAIN; SOB; DIALYSIS Time Seen by Provider: 04/25/22 07:23 Source: patient and EMS Mode of arrival: EMS Limitations: no limitations History of Present Illness: Patient states that she did not feel right around 3:00 this morning. She states she developed substernal chest pain few minutes after starting hemodialysis this morning the clinic. EMS was called and they transported patient to emergency room for evaluation. Patient was hypertensive with systolic blood pressure above 190. Patient was given sublingual nitro and 324 of aspirin prior to arrival by EMS. Patient states she has minimal discomfort in her chest now. She does have a past medical history of coronary artery disease with last coronary stent approximately 2 to 3 years ago. She states she has had a total of 2 coronary stents. She also reports that she has had a right below the knee amputation after failed arterial stent approximately 3 or 4 years ago. She states she had mild shortness of breath. She started having headache after nitroglycerin was given. Pain radiation: neck Severity: mild Quality: aching Relieving factors: nitroglycerin Associated symptoms: Reports dyspnea; Deny abdominal pain, fever(s), nausea, palpitations or vomiting Treatment prior to arrival: aspirin and nitroglycerin Review of Systems Const: Denies: fever(s) or chills Eyes: Denies: change in vision ENMT: Denies: throat pain Card: Reports: chest pain; Denies: palpitations or edema Resp: Reports: dyspnea; Denies: productive cough, non-productive cough or wheezing GI: Denies: abdominal pain, nausea or vomiting : Denies: flank pain Musc: Denies: neck pain or back pain Skin/Breast: Denies: rash or pruritus Neuro: Denies: headache(s) or numbness in extremities Psych: Denies: anxiety [place]/Lymph: Denies: enlarged lymph nodes PFSH ED PFSH: Medical History Acute dyspnea Acute hyperkalemia Adjustment disorder with mixed disturbance of emotions and conduct Anemia in chronic kidney disease Anxiety Anxiety and depression BPPV (benign paroxysmal positional vertigo) CAD (coronary artery disease) Carotid stenosis 04/2020: Right < 50%, Left near 70% CHF exacerbation Chronic diastolic CHF (congestive heart failure) 12/2020 EF 55%, grade II/IV diastolic dysfunction Chronic kidney disease Chronic left sacroiliac joint pain CKD (chronic kidney disease) stage 5, GFR less than 15 ml/min Claustrophobia Compressive atelectasis Congestive heart failure Diabetes mellitus Diabetes mellitus, with long-term current use of insulin Diverticulitis Elevated troponin End stage renal disease End-stage renal disease (ESRD) ESBL (extended spectrum beta-lactamase) producing bacteria infection ESRD (end stage renal disease) on dialysis DAILY (generalized anxiety disorder) Gastroparesis GERD (gastroesophageal reflux disease) Gram-negative bacteremia Hemodialysis catheter dysfunction HTN (hypertension) Hyperlipidemia Hypocalcemia due to chronic kidney disease Hypothyroidism Hypoxemia Light headedness Lumbar back pain Major depression, recurrent Mixed dyslipidemia Noncompliance DOROTEO on CPAP PAD (peripheral artery disease) Partial nontraumatic amputation of left foot (~06/2019) Peripheral vascular disease Peritonitis associated with peritoneal dialysis Phantom pain Pneumonia due to COVID-19 virus (~12/2020) Positive cardiac stress test Sleep apnea Suicidal ideation TIA (transient ischemic attack) Vitamin D deficiency Surgical History AV (arteriovenous fistula) (~10/2020) H/O hysterectomy with oophorectomy History of appendectomy History of cataract surgery History of heart artery stent PCI to LAD, done in [place], [place] 10/2018 ENRIQUE to mid LAD at [facility] 04/2020 History of hysterectomy History of left heart catheterization 04/2020 Findings: 1. There is severe coronary artery disease. 2. FFR of mid LAD was 0.76. 3. Severe OM 2 stenosis. However this is a small sized distal vessel. 4. Mid Left Anterior Descending Coronary Artery was treated with Balloon and Drug Eluting Stent History of right below knee amputation Peritoneal dialysis catheter in place Removed due to recurrent peritonitis S/P cholecystectomy S/P hemodialysis catheter insertion S/P PICC central line placement (~2019) Status post amputation of toe Family History Denies family history of CAD (coronary artery disease) Clotting disorder Dementia Bleeding disorder Social History Smoking and tobacco status: never smoked Alcohol intake: never Household members: spouse and family History of recent travel: No Female Reproductive History: Spontaneous abortions: No Physical Exam Const: COMMON NORMALS: no acute distress, patient oriented x3, alert and well nourished GENERAL APPEARANCE: cooperative HENMT: COMMON NORMALS: normocephalic and atraumatic HEAD & SCALP: normocephalic and atraumatic Eye: COMMON NORMALS: EOMs intact bilaterally Neck/C-Spine: COMMON NORMALS: full ROM, no lymphadenopathy, supple and no JVD Lymph: LYMPHATIC: no lymphadenopathy noted Chest: COMMONS NORMALS: normal inspection of the chest and normal palpation of entire chest wall Resp: COMMON NORMALS: normal respiratory effort, No retractions, No use of accessory muscles and clear to auscultation bilaterally AUSCULTATION: clear to auscultation bilaterally Cardio: COMMON NORMALS: no JVD, regular rate, regular rhythm and Peripheral pulses 2+ throughout RATE: regular rate RHYTHM: regular rhythm PERIPHERAL PULSES: Peripheral pulses 2+ throughout GI: COMMON NORMALS: Normal to inspection, nondistended, normoactive bowel sounds present, Soft to palpation and non-tender PALPATION: Yes Soft to palpation : COMMON NORMALS: Yes no CVA tenderness BLADDER/KIDNEY EXAM: Yes no CVA tenderness Back/Pelvis: COMMON NORMALS: no CVA tenderness Extremity: COMMON NORMALS: full ROM OTHER: Below the knee amputation on the right. No peripheral edema. Neuro: COMMON NORMALS: patient oriented x3, CN's II-XII intact bilaterally, moves all extremities, no focal motor deficits and no sensory deficits noted SENSORIUM/ORIENTATION: Yes alert Psych: COMMON NORMALS: mental status grossly normal, Normal thought process present, cooperative, normal affect and speech normal SPEECH: Yes normal speech THOUGHT PROCESS: Normal thought process present Skin: COMMON NORMALS: no rashes or lesions noted GENERAL SKIN EXAM: no rashes or lesions noted Course Vital Signs: Vital signs: Vital Signs Temperature 98.4 F 04/25/22 07:28 Pulse Rate 73 04/25/22 07:28 Respiratory Rate 17 04/25/22 07:28 Blood Pressure 191/80 04/25/22 07:28 Pulse Oximetry 93 04/25/22 07:28 MDM - Chest Pain Medical Decision Making Accelerated hypertension, chest pain possible unstable angina. 0839: Discussed case with french instructor Dr. Pitt. Will see patient as a networks computer consultant. 0842: Discussed case with Dr. Lemos hospitalist. He will admit the patient. He asked that echocardiogram and flu and COVID swabs to be performed. These orders were placed. Patient was not started on heparin due to the PTT being in the 80s. Patient was heparinized at dialysis. Patient is pain-free at this time. Patient being admitted due to elevated troponin of 122. Labs are pending otherwise. Lab Data 04/25/22 07:50 04/25/22 07:50 Radiology Impressions Chest X-Ray 04/25/22 07:31 IMPRESSION: Improved multilobar pneumonia relative to 03/22/2022. There are some minimal residual opacities in the right greater than lower lungs. ADDENDUM: 04/25/22 0805 Should state There are some minimal residual opacities in the right greater than LEFT lower lungs. Laboratory Results WBC 5.5 10^3/uL (4.0-10.0) 04/25/22 07:50 RBC 3.84 10^6/uL (4.1-5.3) L 04/25/22 07:50 Hgb 12.1 g/dL (11.5-15.3) 04/25/22 07:50 Hct 35.1 % (37.0-47.0) L 04/25/22 07:50 MCV 91.4 fl (81-99) 04/25/22 07:50 MCH 31.5 pg (28.0-34.0) 04/25/22 07:50 MCHC 34.5 g/dL (30.0-36.0) 04/25/22 07:50 RDW 15.3 % (12.1-15.1) H 04/25/22 07:50 Plt Count 161 10^3/cmm (130-400) 04/25/22 07:50 MPV 10.5 fL (7.4-10.4) H 04/25/22 07:50 Neut % (Auto) 71.2 % 04/25/22 07:50 Lymph % (Auto) 13.5 % 04/25/22 07:50 [place] % (Auto) 9.3 % 04/25/22 07:50 Eos % (Auto) 4.9 % 04/25/22 07:50 Baso % (Auto) 0.7 % 04/25/22 07:50 Neut # (Auto) 3.90 10^3/uL (1.8-7.7) 04/25/22 07:50 Lymph # (Auto) 0.7 10^3/uL (0.8-4.8) L 04/25/22 07:50 [place] # (Auto) 0.5 10^3/uL (0.2-0.9) 04/25/22 07:50 Eos # (Auto) 0.3 10^3/uL (0.0-0.8) 04/25/22 07:50 Baso # (Auto) 0.0 10^3/uL (0.0-0.1) 04/25/22 07:50 Nucleated RBC % (auto) 0 % 04/25/22 07:50 Nucleated RBCs # 0.0 /100WBC 04/25/22 07:50 APTT 84.4 SECONDS (23.9-36.7) H 04/25/22 07:50 Troponin T Baseline 122 ng/L (0-10) H* 04/25/22 07:50 Imaging Data CXR: My impression: Trace pulmonary congestion bilaterally. Minimal right pleural effusion. Minimal cardiomegaly. Radiologist's impression: PROCEDURE INFORMATION: Exam: XR Chest Exam date and time: 04/25/2022 8:50 AM Age: 57 years old Clinical indication: Pain; Chest pressure; Additional info: Chest pain TECHNIQUE: Imaging protocol: Radiologic exam of the chest. Views: 1 view. COMPARISON: CR (CHEST, ) 03/22/2022 11:55 AM FINDINGS: Lungs: Bibasilar airspace opacities are improved relative to 03/22/2022. There are some minimal residual opacities in the right greater than lower lungs. Pleural spaces: Probable small bilateral pleural effusions. No pneumothorax. Heart/Mediastinum: Unremarkable. No cardiomegaly. Bones/joints: Unremarkable. XR/XR chest 1V portable [id number] IMPRESSION: Improved multilobar pneumonia relative to 03/22/2022. There are some minimal residual opacities in the right greater than lower lungs. ? Dictated By: Carlita Giraldo MD Signed By: Carlita Giraldo MD Signed Date/Time: 04/25/22 08 EKG Data EKG 1: I personally reviewed and interpreted this EKG as follows: EKG interpretation date: 04/25/22 EKG interpretation time: 07:27 Interpretation: Impression normal sinus rhythm with left axis deviation. Heart rate 76. LVH. Normal ST segment. Normal P waves, normal T waves. There is artifact in the leads I and II and 3 from her shakiness. Discharge Plan Discharge Patient Disposition: Admitted As Inpatient Clinical Impression: Non-ST elevated myocardial infarction (non-STEMI), Chest pain at rest, Shortness of breath, Chronic kidney disease with end stage renal failure on dialysis Condition: Stable Prescriptions: No Action escitalopram oxalate 20 mg tablet 20 mg PO DAILY cyclobenzaprine 10 mg tablet 10 mg PO TID PRN (Reason: muscle spasm) Qty: 30 2RF tizanidine 4 mg capsule 4 mg PO Q6H PRN (Reason: muscle spasticity) Qty: 60 2RF Rx Instructions: do not exceed 3 doses per 24 hrs ketoconazole 2 % cream 1 applic topical DAILY Qty: 30 0RF clonazepam 0.25 mg tablet,disintegrating 0.25 mg PO BID PRN (Reason: Anxiety) Qty: 30 0RF pantoprazole 40 mg tablet,delayed release (DR/EC) 40 mg PO DAILY@08 Qty: 90 1RF hydrocodone-acetaminophen 5-325 mg tablet 1 tab PO Q8H 30 Days Qty: 90 0RF (DME) pen needle, diabetic [ReliOn Pen [place]] 32 gauge x 5/32 needle See Rx Instructions .ROUTE .MEDSUPPLY Qty: 100 6RF Rx Instructions: use for insulin injections (DME) PROSTHETIC SUPPLIES See Rx Instructions .Route .MEDSUPPLY Qty: 1 0RF Rx Instructions: As directed levothyroxine [Euthyrox] 150 mcg tablet 150 mcg PO QAM Qty: 90 3RF atorvastatin 40 mg tablet 40 mg PO DAILY@20 Qty: 90 3RF amlodipine 10 mg tablet 10 mg PO DAILY Qty: 90 1RF aspirin 81 mg Tablet,Chewable 81 mg PO DAILY@08 Hold Instructions: Resume on 10/24/21. cholecalciferol (vitamin D3) [Vitamin D3] 25 mcg (1,000 unit) Tablet 25 mcg PO DAILY@08 omega 5-nzb-mla-fish oil [Fish Oil] 300-1,000 mg Capsule,Delayed Release(Dr/Ec) 1 cap PO BID@08,20 Glucosamine Chondroitin 550-30-1 mg Capsule 1 cap PO DAILY hydralazine 100 mg tablet 100 mg PO BID isosorbide mononitrate 60 mg tablet extended release 24 hr 60 mg PO DAILY ketorolac 0.5 % drops 1 drp ophthalmic (eye) QID prednisolone acetate 1 % drops,suspension 1 drp ophthalmic (eye) QID Dialyvite 100-1 mg tablet 1 tab PO DAILY insulin glargine [Lantus Solostar U-100 Insulin] 100 unit/mL (3 mL) insulin pen 5 unit SUBCUT BID@08,20 Qty: 15 12RF sertraline 50 mg tablet 50 mg PO DAILY carvedilol 12.5 mg tablet 12.5 mg PO BID Constulose 10 gram/15 mL solution 10 g PO DAILY PRN (Reason: Constipation) Referrals: Jacob Sharp DO [Primary Care Provider] - Coding Level of Care Code ED Team Primary Care Physician for Chg Fwd History Comprehensive Exam Comprehensive Medical Decision Making High Complexity
--- NOTE | 2022-04-25 07:35 | ECG_ITS ---
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 Measurements Intervals [place] Rate: 76 P: 39 NC: 194 QRS: -68 QRSD: 90 T: 71 QT: 398 QTc: 449 Interpretive Statements SINUS RHYTHM LEFT AXIS DEVIATION [QRS AXIS < -30] POSSIBLE ANTERIOR MYOCARDIAL INFARCTION , OF INDETERMINATE AGE [30 ms Q WAVE IN V3/V4, OR R < 0.2 mV IN V4] Compared to ECG 03/22/2022 17:42:24 Myocardial infarct finding now present Sinus bradycardia no longer present T-wave abnormality no longer present Electronically Signed On 04-27-2022 18:24:03 FABRICATION LEAD by Dong Pitt M.D. [id number]
[2022-04-25] MEDS: labetalol 5 mg/mL SDV 20mL 10 MG IVP (08:07)
[2022-04-25 08:09] LABS: Basophils % 0.7 %; Eosinophils # 0.3 10^3/uL (0.0-0.8); Eosinophils % 4.9 %; Hematocrit 35.1 % (37.0-47.0); Hemoglobin 12.1 g/dL (11.5-15.3); Lymphocytes # 0.7 10^3/uL (0.8-4.8); Lymphocytes % 13.5 %; Mean Corpuscular HGB Conc 34.5 g/dL (30.0-36.0); Mean Corpuscular Hemoglobin 31.5 pg (28.0-34.0); Mean Corpuscular Volume 91.4 fl (81-99); Mean Platelet Volume 10.5 fL (7.4-10.4); Monocytes # 0.5 10^3/uL (0.2-0.9); Monocytes % 9.3 %; Neutrophils % 71.2 %; Nucleated Red Blood Cells % 0 %; Platelet Count 161 10^3/cmm (130-400); Red Blood Count 3.84 10^6/uL (4.1-5.3); Red Cell Distribution Width 15.3 % (12.1-15.1); White Blood Count 5.5 10^3/uL (4.0-10.0)
--- NOTE | 2022-04-25 08:14 | PC.NURSE ---
PT PLACED ON CONTINUOUS SPO2, NIBP, AND CM.
[2022-04-25 08:30] LABS: Partial Thromboplastin Time 84.4 SECONDS (23.9-36.7); Troponin(5th) Baseline 122 ng/L (0-10)
--- NOTE | 2022-04-25 08:37 | PC.NURSE ---
NOTIFIED DR. STARR OF PT TROP OF 122. VERBALIZED UNDERSTANDING NO FURTHER ORDERS.
--- NOTE | 2022-04-25 08:44 | USCV_ITS ---
Rizwana Herzog Age: 57 Gender: F : 1965 Exam Date: 04/25/2022 09:26 Ordering Phys: DALIA Technologist: DONTAE Exam Location: [facility] – [place], [place] Indication: CHEST PAIN BP: / HR: 70 Rhythm: Sinus Technical Quality: Adequate MEASUREMENTS (Male / Female) Normal Values 2D ECHO LV Diastolic Diameter PLAX 6.0 cm 4.2 - 5.9 / 3.9 - 5.3 cm LV Systolic Diameter PLAX 4.6 cm IVS Diastolic Thickness 0.9 cm 0.6 - 1.0 / 0.6 - 0.9 cm IVS Systolic Thickness 1.0 cm LVPW Diastolic Thickness 0.9 cm 0.6 - 1.0 / 0.6 - 0.9 cm LVPW Systolic Thickness 0.9 cm LVOT Diameter 2.2 cm LV Ejection Fraction 2D Teich 46.6 % LV Ejection Fraction MOD 2C 55.9 % LV Ejection Fraction 2C AL 56.8 % LA Diameter 3.0 cm M-MODE Aortic Annulus Diameter 2.8 cm LA Ao Ratio MM 1.2 DOPPLER AV Peak Velocity 214.0 cm/s LVOT Peak Velocity 119.0 cm/s AV Area Cont Eq vti 1.8 cm squared AV Area Cont Eq pk 2.0 cm squared MV Area PHT 5.0 cm squared Mitral E to A Ratio 1.1 MV E' Velocity 68.5 cm/s Mitral E to MV E' Ratio 26.3 Mitral E to LV E' Lateral Ratio 25.8 Mitral E to LV E' Septal Ratio 26.8 TR Peak Velocity 170.0 cm/s TR Peak Gradient 11.6 mmHg TV Peak E Velocity 113.0 cm/s Right Atrial Pressure 3.0 mmHg Pulmonary Artery Systolic Pressu 14.6 mmHg RV Acceleration Time 0.1 s FINDINGS Left Ventricle Left ventricle is dilated. LV systolic function is normal with EF of 50 to 55%. No regional wall motion abnormalities are seen. Grade 2 diastolic dysfunction Right Ventricle Normal in size and function Right Atrium Normal in size Left Atrium Normal in size Mitral Valve Mitral valve is thickened. Mild mitral regurgitation Aortic Valve Aortic valve is thickened and calcified. Mild aortic stenosis. Aortic valve area is 1.84 cm squared with mean gradient of 10 mmHg. Tricuspid Valve Trace tricuspid regurgitation. Insufficient TR jet to calculate RVSP. Pulmonic Valve Not well-visualized Pericardium Normal Aorta Normal size IVC CONCLUSIONS Left ventricle is dilated. LV systolic function is normal with EF of 50 to 55%. Grade 2 diastolic dysfunction Mild mitral regurgitation Aortic valve is thickened and calcified. Mild aortic stenosis is seen. Aortic valve area is 1.84 cm squared with mean gradient of 10 mmHg. Trace tricuspid regurgitation. Compared to prior echocardiogram from 09/02/2021, mild aortic stenosis is seen. Dong Pitt MD (Electronically Signed) Final Date: 26 April 2022 12:14 S
[2022-04-25 08:48] LABS: Blood Urea Nitrogen 36 mg/dL (6-20); Calcium 10.9 mg/dL (8.5-10.5); Carbon Dioxide 24 mmol/L (22-29); Chloride 96 mmol/L (98-107); Glomerular Filtration Rate 7.1 mL/min (90-130); Glucose 136 mg/dL (65-115); Osmolality Calculated 292 mOsm/kg (285-295); Sodium 136 mmol/L (136-145)
[2022-04-25 08:50] LABS: Anion Gap 20.5 (5-19); Potassium 4.5 mmol/L (3.5-5.1)
--- NOTE | 2022-04-25 09:24 | PM.HP ---
Providers/Chief Complaint Primary Care Provider: Jacob Sharp DO Chief Complaint: CHEST PAIN; SOB; DIALYSIS History of Present Illness Rizwana Herzog is a 57 year old female with a past medical history of CKD on dialysis, DOROTEO on CPAP, diastolic dysfunction, EF 50%, COPD, who presents to [facility] due to complaints of chest pain. She tells me that she was at dialysis today, and she has been increasingly short of breath, and she started develop severe substernal chest pain, they had to stop dialysis after 15 minutes. She is tells me that she has had substernal chest pain on and off throughout the week. Does report intermittent fevers, cough, shortness of breath. Denies any nausea, no vomiting, no abdominal pain. She is on 2 L, here, she tells me she does use oxygen at home, she has been keeping up with dialysi, s regularly. Currently she is chest pain-free, baseline troponin 422, creatinine 6.1, her baseline records are anywhere between 95-3 55, EKG shows no acute ST-T wave changes, hospitalist team was called for admission, ER has already spoken to Dr. Pitt. Review of Systems General: Denies: ROS unobtainable due to mental status Const: Reports: fever(s) Card: Reports: chest pain and dyspnea on exertion Resp: Reports: dyspnea and non-productive cough Medications/Allergies Home Medications Medication Instructions Recorded Confirmed Last Taken Type aspirin 81 mg chewable tablet 81 mg PO DAILY@06/25/19 03/30/22 02/01/22 History omega 9-rkq-jfm-fish oil 300 1 cap PO BID@01/17/20 03/30/22 02/01/22 History mg-1,000 mg capsule,delayed release (Fish Oil) cholecalciferol (vitamin D3) 25 25 mcg PO DAILY@05/14/20 03/30/22 02/02/22 History mcg (1,000 unit) tablet (Vitamin D3) pen needle, diabetic 32 gauge x #100 ea 06/17/21 03/30/22 Unknown Rx (ReliOn Pen Portis) escitalopram oxalate 20 mg tablet 20 mg PO DAILY 07/22/21 03/30/22 02/01/22 History PROSTHETIC SUPPLIES #1 ea 08/21/21 03/30/22 Unknown Rx vitamin B complex-vitamin C 100 1 tab PO DAILY 09/02/21 03/30/22 02/01/22 History mg-folic acid 1 mg tablet (Dialyvite) insulin glargine 100 unit/mL (3 5 unit (0.05 mL) SUBCUT BID@08,20 09/05/21 03/30/22 02/01/22 Rx mL) subcutaneous pen (Lantus #15 mL Solostar U-100 Insulin) glucosamine sulf dipot 1 cap PO DAILY 09/22/21 03/30/22 02/01/22 History chlr,msm,chond 550 mg-C 30 mg-janet 1 mg capsule (Glucosamine Chondroitin) levothyroxine 150 mcg tablet 150 mcg PO QAM #90 tabs 11/04/21 03/30/22 02/01/22 Rx (Euthyrox) cyclobenzaprine 10 mg tablet 10 mg PO TID PRN muscle spasm #30 11/13/21 03/30/22 02/01/22 Rx tabs hydralazine 100 mg tablet 100 mg PO BID 11/28/21 03/30/22 02/01/22 History isosorbide mononitrate 60 mg 60 mg PO DAILY 12/15/21 03/30/22 02/01/22 History tablet,extended release 24 hr ketorolac 0.5 % eye drops 1 drp ophthalmic (eye) QID 12/15/21 03/30/22 02/01/22 History prednisolone acetate 1 % eye 1 drp ophthalmic (eye) QID 12/15/21 03/30/22 02/01/22 History drops,suspension atorvastatin 40 mg tablet 40 mg PO DAILY@20 #90 tabs 12/17/21 03/30/22 02/01/22 Rx sertraline 50 mg tablet 50 mg PO DAILY 01/01/22 03/30/22 02/01/22 History amlodipine 10 mg tablet 10 mg PO DAILY #90 tabs 01/22/22 03/30/22 02/01/22 Rx carvedilol 12.5 mg tablet 12.5 mg PO BID 02/02/22 03/30/22 02/01/22 History lactulose 10 gram/15 mL oral 10 g PO DAILY PRN Constipation 02/02/22 03/30/22 Unknown History solution (Constulose) clonazepam 0.25 mg disintegrating 0.25 mg PO BID PRN Anxiety #30 tabs 02/16/22 03/30/22 Unknown Rx tablet ketoconazole 2 % topical cream 1 applic topical DAILY #30 grams 02/16/22 03/30/22 Unknown Rx pantoprazole 40 mg tablet,delayed 40 mg PO DAILY@08 #90 tabs 02/16/22 03/30/22 Unknown Rx release tizanidine 4 mg capsule 4 mg PO Q6H PRN muscle spasticity 02/16/22 03/30/22 Unknown Rx #60 caps hydrocodone 5 mg-acetaminophen 325 1 tab PO Q8H pain 30 days #90 tabs 03/30/22 03/30/22 Unknown Rx mg tablet Allergies Allergy/AdvReac Type Severity Reaction Status Date / Time metformin [From Glucophage] Allergy Severe Unknown Verified 03/30/22 14:34 venlafaxine [From Effexor] Allergy Severe ADR-Shakine Verified 03/30/22 14:34 ss PFSH Acute PFSH: Medical History (Updated 04/25/22 @ 09:32 by Maikol Lemos MD) Acute dyspnea Acute hyperkalemia Adjustment disorder with mixed disturbance of emotions and conduct Anemia in chronic kidney disease Anxiety Anxiety and depression BPPV (benign paroxysmal positional vertigo) CAD (coronary artery disease) Carotid stenosis 04/2020: Right < 50%, Left near 70% CHF exacerbation Chronic diastolic CHF (congestive heart failure) 12/2020 EF 55%, grade II/IV diastolic dysfunction Chronic kidney disease Chronic left sacroiliac joint pain CKD (chronic kidney disease) stage 5, GFR less than 15 ml/min Claustrophobia Compressive atelectasis Congestive heart failure Diabetes mellitus Diabetes mellitus, with long-term current use of insulin Diverticulitis Elevated troponin End stage renal disease End-stage renal disease (ESRD) ESBL (extended spectrum beta-lactamase) producing bacteria infection ESRD (end stage renal disease) on dialysis DAILY (generalized anxiety disorder) Gastroparesis GERD (gastroesophageal reflux disease) Gram-negative bacteremia Hemodialysis catheter dysfunction HTN (hypertension) Hyperlipidemia Hypocalcemia due to chronic kidney disease Hypothyroidism Hypoxemia Light headedness Lumbar back pain Major depression, recurrent Mixed dyslipidemia Noncompliance DOROTEO on CPAP PAD (peripheral artery disease) Partial nontraumatic amputation of left foot (~06/2019) Peripheral vascular disease Peritonitis associated with peritoneal dialysis Phantom pain Pneumonia due to COVID-19 virus (~12/2020) Positive cardiac stress test Sleep apnea Suicidal ideation TIA (transient ischemic attack) Vitamin D deficiency Surgical History AV (arteriovenous fistula) (~10/2020) H/O hysterectomy with oophorectomy History of appendectomy History of cataract surgery History of heart artery stent PCI to LAD, done in [place], [place] 10/2018 ENRIQUE to mid LAD at [facility] [place] 04/2020 History of hysterectomy History of left heart catheterization 04/2020 Findings: 1. There is severe coronary artery disease. 2. FFR of mid LAD was 0.76. 3. Severe OM 2 stenosis. However this is a small sized distal vessel. 4. Mid Left Anterior Descending Coronary Artery was treated with Balloon and Drug Eluting Stent History of right below knee amputation Peritoneal dialysis catheter in place Removed due to recurrent peritonitis S/P cholecystectomy S/P hemodialysis catheter insertion S/P PICC central line placement (~2019) Status post amputation of toe Family History Denies family history of CAD (coronary artery disease) Clotting disorder Dementia Bleeding disorder Social History Smoking and tobacco status: never smoked Alcohol intake: never Household members: spouse and family History of recent travel: No Female Reproductive History: Spontaneous abortions: No Vitals/I&O/Wt Last Vital Signs Temp 98.4 F 04/25/22 07:28 Pulse 73 04/25/22 07:28 Resp 17 04/25/22 07:28 BP 191/80 04/25/22 07:28 Pulse Ox 93 04/25/22 07:28 Weight last 48 hrs Weight 81.647 kg Physical Exam Const: COMMON NORMALS: no acute distress and patient oriented x3 HENMT: COMMON NORMALS: normocephalic HEAD & SCALP: normocephalic Eye: COMMON NORMALS: Equal, round and reactive pupils present and EOMs intact bilaterally Neck/C-Spine: COMMON NORMALS: no JVD Resp: COMMON NORMALS: normal respiratory effort, No retractions, No use of accessory muscles and clear to auscultation bilaterally AUSCULTATION: clear to auscultation bilaterally Cardio: COMMON NORMALS: no JVD, regular rate, regular rhythm, S1 normal heart sound present and S2 normal heart sound present RATE: regular rate RHYTHM: regular rhythm HEART SOUNDS: S1 normal heart sound present and S2 normal heart sound present GI: COMMON NORMALS: Normal to inspection, nondistended, normoactive bowel sounds present, Soft to palpation, non-tender, No hepatosplenomegaly present, no masses and no bruits PALPATION: Yes Soft to palpation Extremity: COMMON NORMALS: no pedal edema Neuro: COMMON NORMALS: patient oriented x3, CN's II-XII intact bilaterally and moves all extremities Psych: COMMON NORMALS: mental status grossly normal Data 04/25/22 07:50 04/25/22 07:50 A&P Assessment and plan (1) Chest pain at rest: (2) Shortness of breath: (3) Chronic kidney disease with end stage renal failure on dialysis: (4) Non-ST elevated myocardial infarction (non-STEMI): (5) Chronic diastolic CHF (congestive heart failure): (6) Diabetes mellitus: (7) Mixed dyslipidemia: Plan NSTEMI -Serial EKGs serial troponin telemetry monitoring, cardiac echo -Aspirin, statin, Coreg -Patient was heparinized with dialysis, recheck PTT, resume heparin drip potentially at 1 PM PTT is reasonable -Cardiac echo ordered -Full code -SCDs and heparin drip DVT prophylaxis Shortness of breath, likely secondary fluid overload, consult nephrology for dialysis -Flu, COVID, Pro-[place], CRP Type II times Welltuss, continue Lantus 5 units twice daily, low-dose sliding scale Attestations Medical Necessity Statement*: Patient requires hospitalization, inpatient, greater than 2 midnights, for chest pain, NSTEMI, shortness of breath Coding Level of Care Code Acute Outside Sales Associate for g Fwd Diagnoses Chest pain at rest R07.9 Shortness of breath R06.02 Chronic kidney disease with end stage renal failure on dialysis N18.6; Z99.2 Non-ST elevated myocardial infarction (non-STEMI) I21.4 Chronic diastolic CHF (congestive heart failure) I50.32 Diabetes mellitus E11.9 Mixed dyslipidemia E78.2
--- NOTE | 2022-04-25 09:31 | ECG_ITS ---
[facility] Test Date: 2022-04-25 Pat Name: Rizwana Herzog Department: Room: Gender: Female Market Analyst: : 1965 Requested By: Jamal Walsh Order Number: [id number] Catherine MD: Dong Pitt M.D. Measurements Intervals [place] Rate: 69 P: -50 CO: 198 QRS: -67 QRSD: 86 T: 77 QT: 419 QTc: 449 Interpretive Statements SINUS RHYTHM LEFT AXIS DEVIATION [QRS AXIS < -30] POSSIBLE ANTERIOR MYOCARDIAL INFARCTION , OF INDETERMINATE AGE [30 ms Q WAVE IN V3/V4, OR R < 0.2 mV IN V4] Compared to ECG 04/25/2022 07:26:48 No significant changes Electronically Signed On 04-27-2022 18:30:53 FLUME RIDE OPERATOR by Dong Pitt M.D. [id number]
[2022-04-25 09:40] LABS: NT Pro B Type Natriuretic Pept > 35000 pg/mL (0-125)
--- NOTE | 2022-04-25 10:07 | ED_ITS ---
HPI - Chest Pain General: Chief Complaint: Chest Pain Stated Complaint: CHEST PAIN; SOB; DIALYSIS Time Seen by Provider: 04/25/22 07:23 Source: patient and EMS Mode of arrival: EMS Limitations: no limitations History of Present Illness: See previous chart; this addendum is only for her second EKG. Quality: aching Relieving factors: nitroglycerin [facility] ED PFSH: Medical History (Updated 04/25/22 @ 09:32 by Maikol Lemos MD) Acute dyspnea Acute hyperkalemia Adjustment disorder with mixed disturbance of emotions and conduct Anemia in chronic kidney disease Anxiety Anxiety and depression BPPV (benign paroxysmal positional vertigo) CAD (coronary artery disease) Carotid stenosis 04/2020: Right < 50%, Left near 70% CHF exacerbation Chronic diastolic CHF (congestive heart failure) 12/2020 EF 55%, grade II/IV diastolic dysfunction Chronic kidney disease Chronic left sacroiliac joint pain CKD (chronic kidney disease) stage 5, GFR less than 15 ml/min Claustrophobia Compressive atelectasis Congestive heart failure Diabetes mellitus Diabetes mellitus, with long-term current use of insulin Diverticulitis Elevated troponin End stage renal disease End-stage renal disease (ESRD) ESBL (extended spectrum beta-lactamase) producing bacteria infection ESRD (end stage renal disease) on dialysis DAILY (generalized anxiety disorder) Gastroparesis GERD (gastroesophageal reflux disease) Gram-negative bacteremia Hemodialysis catheter dysfunction HTN (hypertension) Hyperlipidemia Hypocalcemia due to chronic kidney disease Hypothyroidism Hypoxemia Light headedness Lumbar back pain Major depression, recurrent Mixed dyslipidemia Noncompliance DOROTEO on CPAP PAD (peripheral artery disease) Partial nontraumatic amputation of left foot (~06/2019) Peripheral vascular disease Peritonitis associated with peritoneal dialysis Phantom pain Pneumonia due to COVID-19 virus (~12/2020) Positive cardiac stress test Sleep apnea Suicidal ideation TIA (transient ischemic attack) Vitamin D deficiency Surgical History AV (arteriovenous fistula) (~10/2020) H/O hysterectomy with oophorectomy History of appendectomy History of cataract surgery History of heart artery stent PCI to LAD, done in [place], [place] 10/2018 ENRIQUE to mid LAD at [facility] 04/2020 History of hysterectomy History of left heart catheterization 04/2020 Findings: 1. There is severe coronary artery disease. 2. FFR of mid LAD was 0.76. 3. Severe OM 2 stenosis. However this is a small sized distal vessel. 4. Mid Left Anterior Descending Coronary Artery was treated with Balloon and Drug Eluting Stent History of right below knee amputation Peritoneal dialysis catheter in place Removed due to recurrent peritonitis S/P cholecystectomy S/P hemodialysis catheter insertion S/P PICC central line placement (~2019) Status post amputation of toe Family History Denies family history of CAD (coronary artery disease) Clotting disorder Dementia Bleeding disorder Social History Smoking and tobacco status: never smoked Alcohol intake: never Household members: spouse and family History of recent travel: No Female Reproductive History: Spontaneous abortions: No Course Vital Signs: Vital signs: Vital Signs Temperature 98.4 F 04/25/22 07:28 Pulse Rate 73 04/25/22 07:28 Respiratory Rate 17 04/25/22 07:28 Blood Pressure 191/80 04/25/22 07:28 Pulse Oximetry 93 04/25/22 07:28 MDM - Chest Pain Medical Decision Making See previous chart Lab Data 04/25/22 07:50 04/25/22 07:50 Radiology Impressions Chest X-Ray 04/25/22 07:31 IMPRESSION: Improved multilobar pneumonia relative to 03/22/2022. There are some minimal residual opacities in the right greater than lower lungs. ADDENDUM: 04/25/22 0805 Should state There are some minimal residual opacities in the right greater than LEFT lower lungs. Laboratory Results WBC 5.5 10^3/uL (4.0-10.0) 04/25/22 07:50 RBC 3.84 10^6/uL (4.1-5.3) L 04/25/22 07:50 Hgb 12.1 g/dL (11.5-15.3) 04/25/22 07:50 Hct 35.1 % (37.0-47.0) L 04/25/22 07:50 MCV 91.4 fl (81-99) 04/25/22 07:50 MCH 31.5 pg (28.0-34.0) 04/25/22 07:50 MCHC 34.5 g/dL (30.0-36.0) 04/25/22 07:50 RDW 15.3 % (12.1-15.1) H 04/25/22 07:50 Plt Count 161 10^3/cmm (130-400) 04/25/22 07:50 MPV 10.5 fL (7.4-10.4) H 04/25/22 07:50 Neut % (Auto) 71.2 % 04/25/22 07:50 Lymph % (Auto) 13.5 % 04/25/22 07:50 [place] % (Auto) 9.3 % 04/25/22 07:50 Eos % (Auto) 4.9 % 04/25/22 07:50 Baso % (Auto) 0.7 % 04/25/22 07:50 Neut # (Auto) 3.90 10^3/uL (1.8-7.7) 04/25/22 07:50 Lymph # (Auto) 0.7 10^3/uL (0.8-4.8) L 04/25/22 07:50 [place] # (Auto) 0.5 10^3/uL (0.2-0.9) 04/25/22 07:50 Eos # (Auto) 0.3 10^3/uL (0.0-0.8) 04/25/22 07:50 Baso # (Auto) 0.0 10^3/uL (0.0-0.1) 04/25/22 07:50 Nucleated RBC % (auto) 0 % 04/25/22 07:50 Nucleated RBCs # 0.0 /100WBC 04/25/22 07:50 APTT 84.4 SECONDS (23.9-36.7) H 04/25/22 07:50 Sodium 136 mmol/L (136-145) 04/25/22 07:50 Potassium 4.5 mmol/L (3.5-5.1) 04/25/22 07:50 Chloride 96 mmol/L (98-107) L 04/25/22 07:50 Carbon Dioxide 24 mmol/L (22-29) 04/25/22 07:50 Anion Gap 20.5 (5-19) H 04/25/22 07:50 BUN 36 mg/dL (6-20) H 04/25/22 07:50 Creatinine 6.1 mg/dL (0.5-0.9) H* 04/25/22 07:50 GFR Calculation 7.1 mL/min (90-130) L 04/25/22 07:50 Glucose 136 mg/dL (65-115) H 04/25/22 07:50 Calculated Osmolality 292 mOsm/kg (285-295) 04/25/22 07:50 Calcium 10.9 mg/dL (8.5-10.5) H 04/25/22 07:50 Troponin T Baseline 122 ng/L (0-10) H* 04/25/22 07:50 NT-Pro-B Natriuret Pep > 41265 pg/mL (0-125) H 04/25/22 07:50 EKG Data EKG 2: I personally reviewed and interpreted this EKG as follows: EKG interpretation date: 04/25/22 EKG interpretation time: 10:06 Interpretation: EKG shows normal sinus rhythm with heart rate of [address] Normal [address] segment. Normal [place] interval, normal QT interval, normal P waves, normal T wa ves. LVH. Unchanged from previous EKG. Discharge Plan Discharge Patient Disposition: Admitted As Inpatient Clinical Impression: Non-ST elevated myocardial infarction (non-STEMI), Chest pain at rest, Shortn ess of breath, Chronic kidney disease with end stage renal failure on dialysis Condition: Stable Coding Level of Care Code ED Occupational Medicine Physician for Maris Braden
[2022-04-25 10:25] LABS: Lactate (Lactic Acid level) 0.7 mmol/L (0.5-2.2)
[2022-04-25 10:34] LABS: Troponin 5 2HR 113.9 ng/L (0-10); Troponin 5 2HR Delta -8.1 ABS# (0-10)
[2022-04-25 10:35] LABS: Procalcitonin 0.21 ng/mL (0-0.5)
[2022-04-25 10:41] LABS: Influenza A by IFA Negative (Negative); Influenza B by IFA Negative (Negative); SARS Covid-2 Antigen Negative (Negative)
[2022-04-25 10:48] LABS: C Reactive Protein 5.9 mg/L (0.0-4.9)
--- NOTE | 2022-04-25 11:04 | PC.NURSE ---
ATTEMPTED REPORT NURSE UNAVAILABLE.
--- NOTE | 2022-04-25 11:50 | PC.NURSE ---
report called ot yoana kamara in [facility].
[2022-04-25 12:10] LABS: Glucose Point of Care 133 mg/dL (70-110)
[2022-04-25 13:04] LABS: Estmated Average Glucose 82; Hemoglobin A1C 4.5 % (4.0-6.0)
[2022-04-25 13:08] LABS: Cholesterol 168 mg/dL (0-200); HDL Cholesterol 48 mg/dL (60-100); LDL Cholesterol Calculated 101 mg/dL (50-129); Triglycerides 94 mg/dL (0-150)
[2022-04-25] MEDS: HYDROcodone-acetaminophen 5-325 mg Tablet 1 TAB PO ×2 (13:10→20:16)
[2022-04-25] MEDS: aspirin 325 mg EC Tablet PO (13:10)
[2022-04-25] MEDS: heparin drip 25,000 UNIT/500 ML PREMIX 35.93 UNIT IV (13:10)
[2022-04-25] MEDS: CLONazepam 0.5 mg Tablet 0.25 MG PO ×2 (13:18→21:21)
--- NOTE | 2022-04-25 13:22 | ECG_ITS ---
[facility] Test Date: 2022-04-25 Pat Name: Rizwana Herzog Department: Room: 111 Gender: Female Functional Consultant: : 1965 Requested By: Jamal Walsh Order Number: [id number] Catherine MD: Dong Pitt M.D. Measurements Intervals [place] Rate: 68 P: -31 FL: 199 QRS: -55 QRSD: 87 T: 82 QT: 422 QTc: 449 Interpretive Statements SINUS RHYTHM LEFT ANTERIOR FASCICULAR BLOCK [QRS AXIS <= -45, QR IN I, RS IN II] MINIMAL VOLTAGE CRITERIA FOR LVH, CONSIDER NORMAL VARIANT [MEETS CRITERIA IN ONE OF: R(aVL), S(V1), R(V5), R(V5/V6)+S(V1)] POSSIBLE ANTERIOR MYOCARDIAL INFARCTION , OF INDETERMINATE AGE [30 ms Q WAVE IN V3/V4, OR R < 0.2 mV IN V4] Compared to ECG 04/25/2022 10:03:32 Left anterior fascicular block now present Left-axis deviation no longer present Myocardial infarct finding still present Electronically Signed On 04-27-2022 18:30:33 COMMUNICATIONS AND SIGNALS SUPERVISOR by Dong Pitt M.D. [id number]
--- NOTE | 2022-04-25 13:23 | PC.NURSE ---
received into room 111-2 from er via stretcher at 1200.pt is alert and oriented x 4.sr on monitor.denies cp at present.pt tearful...states several of her family members are ill at this time.oriented to room environment.instructed to notify staff for any chest pain,sob..or for any concerns at all.pt verb understanding of instructions
[2022-04-25 14:47] LABS: Troponin 5 6HR Delta -10.2 ng/L (0-12)
[2022-04-25 14:48] LABS: Troponin 5 6HR 111.8 ng/L (0-10)
[2022-04-25 16:44] LABS: Urine Appearance Cloudy (CLEAR); Urine Color Yellow (Yellow); pH Urine 9 (5-7)
[2022-04-25 16:45] LABS: Add Urine Culture? No; Add Urine Microscopic? YES; Bacteria Urine 4+ /hpf; Bilirubin Urine Neg (Negative); Blood Urine 2+ (Negative); Glucose Urine UA 4+ (Normal); Ketones Urine Negative (Negative); Leukocyte Esterase Urine 2+ (Negative); Nitrate Urine Negative (Negative); Protein Urine 3+ (Negative); RBC Urine 0-4 /hpf (0-2); Specific Gravity, Urine 1.015 (1.005-1.030); Squamous Epithelial Cell Urine 40-55 /hpf (0-5); Sulfosalicylic Acid Urine Positive (Negative); Urobilinogen Urine Norm (Negative); WBC Urine TOO NUMEROUS TO CNT /hpf (0-5)
[2022-04-25 17:03] LABS: Glucose Point of Care 120 mg/dL (70-110)
[2022-04-25] MEDS: hyDRALAzine 50 mg Tablet 100 MG PO (18:02)
[2022-04-25] MEDS: carvedilol 12.5 mg Tablet PO (18:02)
[2022-04-25] MEDS: atorvastatin 40 mg Tablet PO (20:16)
[2022-04-25] MEDS: insulin glargine 100 units/1 mL 5 UNIT SUBCUT (20:34)
[2022-04-25 20:41] LABS: Glucose Point of Care 126 mg/dL (70-110)
[2022-04-25 20:50] LABS: Partial Thromboplastin Time 127.3 SECONDS (23.9-36.7)
[2022-04-25] MEDS: acetaminophen 325 mg Tablet 650 MG PO (20:59)
[2022-04-25] MEDS: cyclobenzaprine 10 mg Tablet PO (22:49)
[2022-04-26] VITALS (91 sets, daily range): BP systolic 103–176; BP diastolic 48–80; PULSE 53–72; RESP 3–24; TEMP 35.5–36.9; O2SAT 86–100
[2022-04-26] MEDS: tizanidine 4 mg Tablet PO (01:30)
[2022-04-26 04:16] LABS: Basophils # 0.1 10^3/uL (0.0-0.1); Basophils % 1.2 %; Eosinophils # 0.3 10^3/uL (0.0-0.8); Hematocrit 34.4 % (37.0-47.0); Hemoglobin 11.1 g/dL (11.5-15.3); Lymphocytes # 1.1 10^3/uL (0.8-4.8); Mean Corpuscular HGB Conc 32.3 g/dL (30.0-36.0); Mean Corpuscular Hemoglobin 31.8 pg (28.0-34.0); Mean Corpuscular Volume 98.6 fl (81-99); Mean Platelet Volume 11.8 fL (7.4-10.4); Monocytes # 0.3 10^3/uL (0.2-0.9); Monocytes % 7.7 %; Neutrophils # 2.44 10^3/uL (1.8-7.7); Neutrophils % 58.9 %; Nucleated Red Blood Cells % 0 %; Platelet Count 137 10^3/cmm (130-400); Red Blood Count 3.49 10^6/uL (4.1-5.3); Red Cell Distribution Width 15.5 % (12.1-15.1); White Blood Count 4.2 10^3/uL (4.0-10.0)
[2022-04-26 04:26] LABS: Partial Thromboplastin Time 22.4 SECONDS (23.9-36.7)
[2022-04-26 04:36] LABS: Alanine Aminotransferase 9 U/L (0-33); Albumin Level 3.1 g/dL (3.5-5.2); Alkaline Phosphatase 62 U/L (35-105); Aspartate Amino Transferase 16 U/L (0-32); Blood Urea Nitrogen 41 mg/dL (6-20); Calcium 9.6 mg/dL (8.5-10.5); Carbon Dioxide 23 mmol/L (22-29); Chloride 95 mmol/L (98-107); Globulin 2.9 g/dL (1.3-4.6); Glomerular Filtration Rate 6.6 mL/min (90-130); Glucose 91 mg/dL (65-115); Magnesium 3.2 mg/dL (1.7-2.3); Osmolality Calculated 282 mOsm/kg (285-295); Phosphorus 5.8 mg/dL (2.5-4.5); Sodium 131 mmol/L (136-145); Total Bilirubin 0.4 mg/dL (0.15-1.2)
[2022-04-26 04:38] LABS: Anion Gap 17.7 (5-19); Potassium 4.7 mmol/L (3.5-5.1)
[2022-04-26] MEDS: HYDROcodone-acetaminophen 5-325 mg Tablet 1 TAB PO ×3 (04:44→19:36)
[2022-04-26 04:45] LABS: Slide Review Slide Review Perform
[2022-04-26] MEDS: heparin 5,000 unit/mL INJ 1 mL IV (04:46)
[2022-04-26] MEDS: levothyroxine 150 mcg Tablet PO (05:17)
--- NOTE | 2022-04-26 06:38 | P.CONIM_ITS ---
Providers/Reason For Consult Consulting Physician/Specialty*: Ashleigh Scruggs DO, telenephrology Reason for Consult*: ESRD Requesting Physician: Maikol Lemos MD Attending Physician: Maikol Lemos MD Primary Care Provider: Jacob Sharp DO History of Present Illness History of Present Illness Rizwana Herzog is a 57 year old female presented from dialysis yesterday. States her blood pressure was very high, she was dizzy and had chest pressure. Only received 15 treatment. Seen and examined during dialysis. Only complaint is nausea which she says occurs frequently. Medications/Allergies Home Medications Medication Instructions Recorded Confirmed Last Taken Type aspirin 81 mg chewable tablet 81 mg PO DAILY@06/25/19 04/25/22 04/25/22 H istory omega 1-hmh-rdw-fish oil 300 1 cap PO BID@01/17/20 04/25/22 04/25/22 History mg-1,000 mg capsule,delayed release (Fish Oil) cholecalciferol (vitamin D3) 25 25 mcg PO DAILY@05/14/20 04/25/22 04/25/22 History mcg (1,000 unit) tablet (Vitamin D3) pen needle, diabetic 32 gauge x #100 ea 06/17/21 04/25/22 Unknown Rx (ReliOn Pen [place]) escitalopram oxalate 20 mg tablet 20 mg PO DAILY 07/22/21 04/25/22 04/25/22 History PROSTHETIC SUPPLIES #1 ea 08/21/21 04/25/22 Unknown Rx vitamin B complex-vitamin C 100 1 tab PO DAILY 09/02/21 04/25/22 04/25/22 History mg-folic acid 1 mg tablet (Dialyvite) insulin glargine 100 unit/mL (3 5 unit (0.05 mL) SUBCUT BID@09/05/21 04/25/22 04/25/22 Rx mL) subcutaneous pen (Lantus #15 mL Solostar U-100 Insulin) glucosamine sulf dipot 1 cap PO DAILY 09/22/21 04/25/22 04/25/22 History chlr,msm,chond 550 mg-C 30 mg-janet 1 mg capsule (Glucosamine Chondroitin) levothyroxine 150 mcg tablet 150 mcg PO QAM #90 tabs 11/04/21 04/25/22 04/25/22 Rx (Euthyrox) cyclobenzaprine 10 mg tablet 10 mg PO TID PRN muscle spasm #30 11/13/21 04/25/22 02/01/22 Rx tabs hydralazine 100 mg tablet 100 mg PO BID 11/28/21 04/25/22 02/01/22 History isosorbide mononitrate 60 mg 60 mg PO DAILY 12/15/21 04/25/22 02/01/22 History tablet,extended release 24 hr ketorolac 0.5 % eye drops 1 drp ophthalmic (eye) BID 12/15/21 04/25/22 04/25/22 History prednisolone acetate 1 % eye 1 drp ophthalmic (eye) QID 12/15/21 04/25/22 04/25/22 History drops,suspension atorvastatin 40 mg tablet 40 mg PO DAILY@20 #90 tabs 12/17/21 04/25/22 04/24/22 Rx sertraline 50 mg tablet 50 mg PO DAILY 01/01/22 04/25/22 04/25/22 History amlodipine 10 mg tablet 10 mg PO DAILY #90 tabs 01/22/22 04/25/22 04/25/22 Rx carvedilol 12.5 mg tablet 12.5 mg PO BID 02/02/22 04/25/22 04/25/22 History lactulose 10 gram/15 mL oral 10 g PO DAILY PRN Constipation 02/02/22 04/25/22 Unknown History solution (Constulose) clonazepam 0.25 mg disintegrating 0.25 mg PO BID PRN Anxiety #30 tabs 02/16/22 04/25/22 Unknown Rx tablet ketoconazole 2 % topical cream 1 applic topical DAILY #30 grams 02/16/22 04/25/22 Unknown Rx pantoprazole 40 mg tablet,delayed 40 mg PO DAILY@08 #90 tabs 02/16/22 04/25/22 04/25/22 Rx release tizanidine 4 mg capsule 4 mg PO Q6H PRN muscle spasticity 02/16/22 04/25/22 Unknown Rx #60 caps albuterol sulfate 90 mcg/actuation 2 puff inhalation Q4H PRN 04/25/22 04/25/22 Unknown History aerosol inhaler Shortness Of Breath cinacalcet 60 mg tablet 60 mg PO DAILY 04/25/22 04/25/22 04/25/22 History furosemide 40 mg tablet (Lasix) 40 mg PO BID 04/25/22 04/25/22 04/25/22 History ipratropium 20 mcg-albuterol 100 1 puff inhalation DAILY PRN 04/25/22 04/25/22 Unknown History mcg/actuation mist for inhalation Shortness Of Breath (Combivent Respimat) nitroglycerin 0.4 mg sublingual 0.4 mg sublingual Q5M PRN Chest 04/25/22 04/25/22 Unknown History tablet (Nitrostat) Pain spironolactone 25 mg tablet 25 mg PO DAILY 04/25/22 04/25/22 04/25/22 History Allergies Allergy/AdvReac Type Severity Reaction Status Date / Time metformin [From Glucophage] Allergy Severe Unknown Verified 03/30/22 14:34 venlafaxine [From Effexor] Allergy Severe ADR-Shakine Verified 03/30/22 14:34 ss Current Medications Generic Name Dose Route Start Last Admin Trade Name Freq PRN Reason Stop Dose Admin Acetaminophen 650 mg 04/25/22 08:47 04/25/22 20:59 Acetaminophen 325 Mg Tablet PO 650 mg Q6H PRN Administration Mild/Mod Pain Or Temp >/= 101 Hydrocodone Bitart/Acetaminophen 1 tab 04/25/22 12:23 04/26/22 04:44 Hydrocodone-Acetaminophen 5-325 Mg Tablet PO 1 tab Q8H JERSON Administration Atorvastatin Calcium 40 mg 04/25/22 20:00 04/25/22 20:16 Atorvastatin 40 Mg Tablet PO 40 mg DAILY@20 JERSON Administration Carvedilol 12.5 mg 04/25/22 18:00 04/25/22 18:02 Carvedilol 12.5 Mg Tablet PO 12.5 mg BID JERSON Administration Clonazepam 0.25 mg 04/25/22 12:29 04/25/22 21:21 Clonazepam 0.5 Mg Tablet PO 0.25 mg BID PRN Administration Anxiety Cyclobenzaprine HCl 10 mg 04/25/22 12:23 04/25/22 22:49 Cyclobenzaprine 10 Mg Tablet PO 10 mg TID PRN Administration muscle spasm Heparin Sodium (Porcine) 0 unit 04/25/22 13:00 04/26/22 04:46 Heparin 5,000 Unit/Ml Inj 1 Ml IV 4,000 unit PRN PRN Administration Heparin weight-base protocol Protocol Hydralazine HCl 100 mg 04/25/22 18:00 04/25/22 18:02 Hydralazine 50 Mg Tablet PO 100 mg BID JERSON Administration Heparin Sodium/Sodium Chloride 25,000 unit in 500 mls @ 0 mls/hr 04/25/22 13:00 04/26/22 04:49 Heparin Drip IV 13.47 unit/kg/hr .Q0M JERSON 22 mls/hr Titration Protocol Per Protocol Insulin Glargine 5 unit 04/25/22 20:00 04/25/22 20:34 Insulin Glargine 100 Units/1 Ml SUBCUT 5 unit BID@, [facility] Administration Insulin Human Lispro 0 unit 04/25/22 12:23 04/25/22 17:38 Insulin Lispro 100 Unit/1 Ml SUBCUT Not Given TIDWM [facility] Protocol Levothyroxine Sodium 150 mcg 04/26/22 06:00 04/26/22 05:17 Levothyroxine 150 Mcg Tablet PO 150 mcg QAM JERSON Administration Tizanidine HCl 4 mg 04/25/22 12:27 04/26/22 01:30 Tizanidine 4 Mg Tablet PO 4 mg Q6H PRN Administration muscle spasticity PFSH Acute PFSH: Medical History (Updated 04/26/22 @ 11:18 by Ashleigh Scruggs DO) Acute dyspnea Acute hyperkalemia Adjustment disorder with mixed disturbance of emotions and conduct Anemia in chronic kidney disease Anxiety Anxiety and depression BPPV (benign paroxysmal positional vertigo) CAD (coronary artery disease) Carotid stenosis 04/2020: Right < 50%, Left near 70% CHF exacerbation Chronic diastolic CHF (congestive heart failure) 12/2020 EF 55%, grade II/IV diastolic dysfunction Chronic kidney disease Chronic left sacroiliac joint pain CKD (chronic kidney disease) stage 5, GFR less than 15 ml/min Claustrophobia Compressive atelectasis Congestive heart failure Diabetes mellitus Diabetes mellitus, with long-term current use of insulin Diverticulitis Elevated troponin End stage renal disease End-stage renal disease (ESRD) ESBL (extended spectrum beta-lactamase) producing bacteria infection ESRD (end stage renal disease) on dialysis DAILY (generalized anxiety disorder) Gastroparesis GERD (gastroesophageal reflux disease) Gram-negative bacteremia Hemodialysis catheter dysfunction HTN (hypertension) Hyperlipidemia Hypocalcemia due to chronic kidney disease Hypothyroidism Hypoxemia Light headedness Lumbar back pain Major depression, recurrent Mixed dyslipidemia Noncompliance DOROTEO on CPAP PAD (peripheral artery disease) Partial nontraumatic amputation of left foot (~06/2019) Peripheral vascular disease Peritonitis associated with peritoneal dialysis Phantom pain Pneumonia due to COVID-19 virus (~12/2020) Positive cardiac stress test Sleep apnea Suicidal ideation TIA (transient ischemic attack) Vitamin D deficiency Surgical History AV (arteriovenous fistula) (~10/2020) H/O hysterectomy with oophorectomy History of appendectomy History of cataract surgery History of heart artery stent PCI to LAD, done in [place], [place] 10/2018 ENRIQUE to mid LAD at [facility] 04/2020 History of hysterectomy History of left heart catheterization 04/2020 Findings: 1. There is severe coronary artery disease. 2. FFR of mid LAD was 0.76. 3. Severe OM 2 stenosis. However this is a small sized distal vessel. 4. Mid Left Anterior Descending Coronary Artery was treated with Balloon and Drug Eluting Stent History of right below knee amputation Peritoneal dialysis catheter in place Removed due to recurrent peritonitis S/P cholecystectomy S/P hemodialysis catheter insertion S/P PICC central line placement (~2019) Status post amputation of toe Family History Denies family history of CAD (coronary artery disease) Clotting disorder Dementia Bleeding disorder Social History Smoking and tobacco status: never smoked Alcohol intake: never Household members: spouse and family History of recent travel: No Female Reproductive History: Spontaneous abortions: No Vitals/I&O/Wt Last Vital Signs Temp 96.7 F L 04/26/22 04:30 Pulse 54 L 04/26/22 06:00 Resp 14 04/26/22 04:30 BP 136/77 04/26/22 04:30 Pulse Ox 92 04/26/22 04:30 O2 Del Method 04/25/22 12:41 O2 Flow Rate 2 04/25/22 12:41 04/25/22 04/25/22 04/26/22 14:59 22:59 06:59 Intake Total 360 / 360 1042.649 / 1402.649 382.317 / 1784.966 Output Total 200 / 200 Balance 360 / 360 842.649 / 1202.649 382.317 / 1584.966 Weight last 48 hrs Weight 81.647 kg Physical Exam Const: COMMON NORMALS: no acute distress Resp: COMMON NORMALS: clear to auscultation bilaterally AUSCULTATION: clear to auscultation bilaterally Cardio: COMMON NORMALS: regular rhythm RHYTHM: regular rhythm Extremity: NARRATIVE EXTREMITY EXAM: trace edema, LUE AVF no signs of infection per RN Data 04/26/22 03:00 04/26/22 03:00 Other Labs: Alb 3.1, LFTs normal, BNP > 35,000 Ca 9.6, phos 5.8, Mg 3.2 CXR: Radiologist's impression: Improved multilobar pneumonia relative to 03/22/2022. There are some minimal residual opacities in the right greater than lower lungs. Other data: seen via telemedicine with assistance of RN at bedside A&P Assessment and plan (1) ESRD (end stage renal disease) on dialysis: Plan 1. ESRD. HD usually //S. HD today 4h, 2.5L UF. This week her schedule in outpatient unit is M/W/Sat 2. Volume overload 3. Hypervolemic hyponatremia 4. Diabetes, hypertension Rec: No IVs, BPs, blood draws LUE.Next HD tomorrow. Continue outpatient antihypertensives. Consult Attestations Medical Necessity Statement: per primary service Time Spent in Patient Care: 16 - 35 minutes Coding Level of Care Code Acute Rn Ccu for [facility] Fwd Diagnoses ESRD (end stage renal disease) on dialysis N18.6; Z99.2
[2022-04-26 07:24] LABS: Glucose Point of Care 105 mg/dL (70-110)
[2022-04-26 07:46] LABS: Hepatitis B Surface Antigen Non-Reactive (Nonreactive)
[2022-04-26 07:48] LABS: Glucose Point of Care 85 mg/dL (70-110)
--- NOTE | 2022-04-26 07:57 | P.CONIM_ITS ---
Providers/Reason For Consult Consulting Physician/Specialty*: Dong Pitt MD/Cardiology Reason for Consult*: Chest pain Requesting Physician: Dr Lemos Attending Physician: Maikol Lemos MD Primary Care Provider: Jacob Sharp DO History of Present Illness History of Present Illness Rizwana Herzog is a 57 year old female with past medical history of CKD on dialysis, diastolic dysfunction, COPD who presented to the hospital with chest pain. She developed chest discomfort during dialysis session. It was substernal. She has been having on and off chest discomfort episodes. Troponin was elevated at 122 but did not trend up significantly. Patient had recent cardiac catheterization that did not reveal significant CAD. EKG shows a normal rhythm with no ischemic changes. Echo shows normal LV systolic function. Review of Systems General: Denies: ROS unobtainable due to mental status Const: Reports: fever(s) Card: Reports: chest pain and dyspnea on exertion Resp: Reports: dyspnea and non-productive cough Medications/Allergies Home Medications Medication Instructions Recorded Confirmed Last Taken Type aspirin 81 mg chewable tablet 81 mg PO DAILY@06/25/19 05/07/22 04/25/22 History omega 9-poi-qjs-fish oil 300 1 cap PO BID@01/17/20 05/07/22 04/25/22 History mg-1,000 mg capsule,delayed release (Fish Oil) cholecalciferol (vitamin D3) 25 25 mcg PO DAILY@08 05/14/20 05/07/22 04/25/22 History mcg (1,000 unit) tablet (Vitamin D3) pen needle, diabetic 32 gauge x #100 ea 06/17/21 05/07/22 Unknown Rx (ReliOn Pen [place]) escitalopram oxalate 20 mg tablet 20 mg PO DAILY 07/22/21 05/07/22 04/25/22 History PROSTHETIC SUPPLIES #1 ea 08/21/21 05/07/22 Unknown Rx vitamin B complex-vitamin C 100 1 tab PO DAILY 09/02/21 05/07/22 04/25/22 History mg-folic acid 1 mg tablet (Dialyvite) insulin glargine 100 unit/mL (3 5 unit (0.05 mL) SUBCUT BID@09/05/21 05/07/22 04/25/22 Rx mL) subcutaneous pen (Lantus #15 mL Solostar U-100 Insulin) glucosamine sulf dipot 1 cap PO DAILY 09/22/21 05/07/22 04/25/22 History chlr,msm,chond 550 mg-C 30 mg-janet 1 mg capsule (Glucosamine Chondroitin) levothyroxine 150 mcg tablet 150 mcg PO QAM #90 tabs 11/04/21 05/07/22 04/25/22 Rx (Euthyrox) cyclobenzaprine 10 mg tablet 10 mg PO TID PRN muscle spasm #30 11/13/21 05/07/22 02/01/22 Rx tabs hydralazine 100 mg tablet 100 mg PO BID 11/28/21 05/07/22 02/01/22 History isosorbide mononitrate 60 mg 60 mg PO DAILY 12/15/21 05/07/22 02/01/22 History tablet,extended release 24 hr ketorolac 0.5 % eye drops 1 drp ophthalmic (eye) BID 12/15/21 05/07/22 04/25/22 History prednisolone acetate 1 % eye 1 drp ophthalmic (eye) QID 12/15/21 05/07/22 04/25/22 History drops,suspension atorvastatin 40 mg tablet 40 mg PO DAILY@20 #90 tabs 12/17/21 05/07/22 04/24/22 Rx sertraline 50 mg tablet 50 mg PO DAILY 01/01/22 05/07/22 04/25/22 History amlodipine 10 mg tablet 10 mg PO DAILY #90 tabs 01/22/22 05/07/22 04/25/22 Rx carvedilol 12.5 mg tablet 12.5 mg PO BID 02/02/22 05/07/22 04/25/22 History lactulose 10 gram/15 mL oral 10 g PO DAILY PRN Constipation 02/02/22 05/07/22 Unknown History solution (Constulose) ketoconazole 2 % topical cream 1 applic topical DAILY #30 grams 02/16/22 05/07/22 Unknown Rx pantoprazole 40 mg tablet,delayed 40 mg PO DAILY@08 #90 tabs 02/16/22 05/07/22 04/25/22 Rx release tizanidine 4 mg capsule 4 mg PO Q6H PRN muscle spasticity 02/16/22 05/07/22 Unknown Rx #60 caps albuterol sulfate 90 mcg/actuation 2 puff inhalation Q4H PRN 04/25/22 05/07/22 Unknown History aerosol inhaler Shortness Of Breath cinacalcet 60 mg tablet 60 mg PO DAILY 04/25/22 05/07/22 04/25/22 History furosemide 40 mg tablet (Lasix) 40 mg PO BID 04/25/22 05/07/22 04/25/22 History ipratropium 20 mcg-albuterol 100 1 puff inhalation DAILY PRN 04/25/22 05/07/22 Unknown History mcg/actuation mist for inhalation Shortness Of Breath (Combivent Respimat) nitroglycerin 0.4 mg sublingual 0.4 mg sublingual Q5M PRN Chest 04/25/22 05/07/22 Unknown History tablet (Nitrostat) Pain spironolactone 25 mg tablet 25 mg PO DAILY 04/25/22 05/07/22 04/25/22 History clonazepam 0.25 mg disintegrating 0.25 mg PO BID PRN Anxiety #30 tabs 05/07/22 05/07/22 Unknown Rx tablet Allergies Allergy/AdvReac Type Severity Reaction Status Date / Time metformin [From Glucophage] Allergy Severe Unknown Verified 05/07/22 12:55 venlafaxine [From Effexor] Allergy Severe ADR-Shakine Verified 05/07/22 12:55 ss Current Medications Generic Name Dose Route Start Last Admin Trade Name Freq PRN Reason Stop Dose Admin Acetaminophen 650 mg 04/25/22 08:47 04/25/22 20:59 Acetaminophen 325 Mg Tablet PO 650 mg Q6H PRN Administration Mild/Mod Pain Or Temp >/= 101 Hydrocodone Bitart/Acetaminophen 1 tab 04/25/22 12:23 04/26/22 04:44 Hydrocodone-Acetaminophen 5-325 Mg Tablet PO 1 tab Q8H JERSON Administration Atorvastatin Calcium 40 mg 04/25/22 20:00 04/25/22 20:16 Atorvastatin 40 Mg Tablet PO 40 mg DAILY@20 JERSON Administration Carvedilol 12.5 mg 04/25/22 18:00 04/25/22 18:02 Carvedilol 12.5 Mg Tablet PO 12.5 mg BID JERSON Administration Clonazepam 0.25 mg 04/25/22 12:29 04/25/22 21:21 Clonazepam 0.5 Mg Tablet PO 0.25 mg BID PRN Administration Anxiety Cyclobenzaprine HCl 10 mg 04/25/22 12:23 04/25/22 22:49 Cyclobenzaprine 10 Mg Tablet PO 10 mg TID PRN Administration muscle spasm Heparin Sodium (Porcine) 0 unit 04/25/22 13:00 04/26/22 04:46 Heparin 5,000 Unit/Ml Inj 1 Ml IV 4,000 unit PRN PRN Administration Heparin weight-base protocol Protocol Hydralazine HCl 100 mg 04/25/22 18:00 04/25/22 18:02 Hydralazine 50 Mg Tablet PO 100 mg BID JERSON Administration Heparin Sodium/Sodium Chloride 25,000 unit in 500 mls @ 0 mls/hr 04/25/22 13:00 04/26/22 04:49 Heparin Drip IV 13.47 unit/kg/hr .Q0M JERSON 22 mls/hr Titration Protocol Per Protocol Insulin Glargine 5 unit 04/25/22 20:00 04/25/22 20:34 Insulin Glargine 100 Units/1 Ml SUBCUT 5 unit BID@20 [facility] Administration Insulin Human Lispro 0 unit 04/25/22 12:23 04/25/22 17:38 Insulin Lispro 100 Unit/1 Ml SUBCUT Not Given TIDWM [facility] Protocol Levothyroxine Sodium 150 mcg 04/26/22 06:00 04/26/22 05:17 Levothyroxine 150 Mcg Tablet PO 150 mcg QAM JERSON Administration Tizanidine HCl 4 mg 04/25/22 12:27 04/26/22 01:30 Tizanidine 4 Mg Tablet PO 4 mg Q6H PRN Administration muscle spasticity PFSH Acute PFSH: Medical History Acute dyspnea Acute hyperkalemia Acute hyperkalemia Adjustment disorder with mixed disturbance of emotions and conduct Anemia in chronic kidney disease Anxiety Anxiety and depression BPPV (benign paroxysmal positional vertigo) CAD (coronary artery disease) Carotid stenosis 04/2020: Right < 50%, Left near 70% CHF exacerbation Chronic diastolic CHF (congestive heart failure) 12/2020 EF 55%, grade II/IV diastolic dysfunction Chronic kidney disease Chronic left sacroiliac joint pain CKD (chronic kidney disease) stage 5, GFR less than 15 ml/min Claustrophobia Compressive atelectasis Congestive heart failure Congestive heart failure Diabetes mellitus Diabetes mellitus, with long-term current use of insulin Diverticulitis Elevated troponin End stage renal disease End-stage renal disease (ESRD) ESBL (extended spectrum beta-lactamase) producing bacteria infection ESRD (end stage renal disease) on dialysis DAILY (generalized anxiety disorder) Gastroparesis GERD (gastroesophageal reflux disease) Gram-negative bacteremia Hemodialysis catheter dysfunction HTN (hypertension) Hyperlipidemia Hypocalcemia due to chronic kidney disease Hypothyroidism Hypoxemia Light headedness Lumbar back pain Major depression, recurrent Mixed dyslipidemia Noncompliance DOROTEO on CPAP PAD (peripheral artery disease) Partial nontraumatic amputation of left foot (~06/2019) Peripheral vascular disease Peritonitis associated with peritoneal dialysis Phantom pain Pneumonia due to COVID-19 virus (~12/2020) Positive cardiac stress test Sleep apnea Suicidal ideation TIA (transient ischemic attack) Vitamin D deficiency Surgical History AV (arteriovenous fistula) (~10/2020) H/O hysterectomy with oophorectomy History of appendectomy History of cataract surgery History of heart artery stent PCI to LAD, done in [place], [place] 10/2018 ENRIQUE to mid LAD at [facility] 04/2020 History of hysterectomy History of left heart catheterization 04/2020 Findings: 1. There is severe coronary artery disease. 2. FFR of mid LAD was 0.76. 3. Severe OM 2 stenosis. However this is a small sized distal vessel. 4. Mid Left Anterior Descending Coronary Artery was treated with Balloon and Drug Eluting Stent History of right below knee amputation Peritoneal dialysis catheter in place Removed due to recurrent peritonitis S/P cholecystectomy S/P hemodialysis catheter insertion S/P PICC central line placement (~2019) Status post amputation of toe Family History Denies family history of CAD (coronary artery disease) Clotting disorder Dementia Bleeding disorder Social History Smoking and tobacco status: never smoked Alcohol intake: never Household members: spouse and family History of recent travel: No Female Reproductive History: Spontaneous abortions: No Vitals/I&O/Wt Last Vital Signs Temp 96.7 F L 04/26/22 04:30 Pulse 54 L 04/26/22 06:00 Resp 14 04/26/22 04:30 BP 136/77 04/26/22 04:30 Pulse Ox 92 04/26/22 04:30 O2 Del Method 04/25/22 12:41 O2 Flow Rate 2 04/25/22 12:41 04/25/22 04/26/22 04/26/22 22:59 06:59 14:59 Intake Total 1042.649 / 1402.649 382.317 / 1784.966 Output Total 200 / 200 Balance 842.649 / 1202.649 382.317 / 1584.966 Weight last 48 hrs Weight 180 lb Physical Exam Narrative: GENERAL: Patient is alert, awake and oriented x3. [] NECK: No jugular vein distension. [] HEENT: No cyanosis. No icterus. No pallor. [] HEART: Regular S1 and S2. No murmur, rub or gallop. [] LUNGS: Clear to auscultate bilaterally. [] ABDOMEN: Soft, nontender and nondistended. Positive bowel sounds. No guarding, rebound or tenderness. [] CENTRAL NERVOUS SYSTEM: Grossly nonfocal. [] EXTREMITIES: Lower extremities with 1+ edema bilaterally. Pulses palpable in the lower extremities, both dorsalis pedis and posterior tibial. [] Data 04/26/22 03:00 04/26/22 03:00 A&P Assessment and plan (1) End-stage renal disease needing dialysis: (2) Chest pain: Plan Patient has presented with chest pain symptoms that are atypical. Had recent cath with no obstructive CAD. We will medically manage her Thank you for involving us care of this patient. Please call with questions. Consult Attestations Medical Necessity Statement: Care expected to cross 2 midnights. Coding Level of Care Code Acute Senior Medical Director for [facility] Fwd Diagnoses End-stage renal disease needing dialysis N18.6; Z99.2 Chest pain R07.9
[2022-04-26] MEDS: hyDRALAzine 50 mg Tablet 100 MG PO ×2 (10:06→17:20)
[2022-04-26] MEDS: meropenem 1,000 MG in sodium chloride 0.9% (plus) 50 ML 100 MG IV ×2 (10:06→17:19)
[2022-04-26] MEDS: cholecalciferol (vitamin D3) 1,000 unit Tablet 1000 UNIT PO (10:07)
[2022-04-26] MEDS: pantoprazole DR 40 mg Tablet PO (10:07)
[2022-04-26] MEDS: escitalopram 10 mg Tablet 20 MG PO (10:07)
[2022-04-26] MEDS: isosorbide mononitrate ER 60 mg Tablet PO (10:07)
[2022-04-26] MEDS: aspirin 81 mg Chew Tablet PO (10:07)
[2022-04-26] MEDS: amlodipine 10 mg Tablet PO (10:07)
[2022-04-26] MEDS: carvedilol 12.5 mg Tablet PO ×2 (10:08→17:20)
[2022-04-26] MEDS: sertraline 50 mg Tablet PO (10:08)
--- NOTE | 2022-04-26 10:37 | PC.NURSE ---
to dialysis via bed.
[2022-04-26] MEDS: ondansetron 2 mg/ML SDV 2 mL 4 MG IVP ×2 (11:00→17:57)
[2022-04-26 11:49] LABS: Glucose Point of Care 108 mg/dL (70-110)
[2022-04-26] MEDS: acetaminophen 325 mg Tablet 650 MG PO (15:01)
--- NOTE | 2022-04-26 15:03 | PC.HD ---
Treatment terminated 20 minutes early due to increasing AP pressures, despite lowering of BFR down to 250. In addition, patient was complaining of access pain, requesting early termination. Patient states that this occurs frequently at her clinic as well, and is not a new finding. No indication of infiltration noted.
--- NOTE | 2022-04-26 16:08 | PC.NURSE ---
return from dialysis via bed at 1530.c/o headache.tylenol given.
--- NOTE | 2022-04-26 16:15 | PM.PN ---
Subjective Subjective: Patient was seen this morning, she continues to complain of fatigue, tiredness, patient has a history of ESBL UTIs, her urine was grossly positive Vitals/I&O/Wt Last Vital Signs Temp 97.9 F 04/26/22 15:40 Pulse 63 04/26/22 15:40 Resp 16 04/26/22 15:40 BP 105/56 04/26/22 15:40 Pulse Ox 95 04/26/22 15:40 O2 Del Method 04/26/22 15:40 O2 Flow Rate 2 04/26/22 07:58 FiO2 2 04/26/22 08:00 04/26/22 04/26/22 04/26/22 06:59 14:59 22:59 Intake Total 382.317 / 1784.966 375.034 / 375.034 300 / 675.034 Output Total 2559 / 2559 Balance 382.317 / 1584.966 375.034 / 375.034 -2259 / -1883.966 Weight last 48 hrs Weight 81.5 kg Weight 81.647 kg Physical Exam Const: COMMON NORMALS: no acute distress and patient oriented x3 Resp: COMMON NORMALS: normal respiratory effort, No retractions, No use of accessory muscles and clear to auscultation bilaterally AUSCULTATION: clear to auscultation bilaterally Cardio: COMMON NORMALS: regular rate, regular rhythm, S1 normal heart sound present and S2 normal heart sound present RATE: regular rate RHYTHM: regular rhythm HEART SOUNDS: S1 normal heart sound present and S2 normal heart sound present GI: COMMON NORMALS: Normal to inspection, nondistended, normoactive bowel sounds present and non-tender Extremity: COMMON NORMALS: no pedal edema Neuro: COMMON NORMALS: patient oriented x3 Psych: COMMON NORMALS: mental status grossly normal Data 04/26/22 03:00 04/26/22 03:00 A&P Assessment and plan (1) Chest pain at rest: (2) Shortness of breath: (3) Chronic kidney disease with end stage renal failure on dialysis: (4) Non-ST elevated myocardial infarction (non-STEMI): (5) Chronic diastolic CHF (congestive heart failure): (6) Diabetes mellitus: (7) Mixed dyslipidemia: (8) Urinary tract infection due to ESBL Klebsiella: Plan NSTEMI -Serial EKGs serial troponin telemetry monitoring, cardiac echo -Aspirin, statin, Coreg -No recurrent chest pain, she had a negative cath in the last few months -Cardiac echo ordered -Will medically manage -Full code -SCDs and heparin drip DVT prophylaxis Shortness of breath, likely secondary fluid overload, consult nephrology for dialysis -Flu, COVID, Pro-[place], CRP Type II diabetes mellitus, continue Lantus 5 units twice daily, low-dose sliding scale Weakness, fatigue complaints, urinalysis grossly positive for UTI, following up urine cultures, history of ESBL multidrug-resistant UTIs, will keep inpatient follow urine culture, switch to meropenem Attestations Medical Necessity Statement*: Patient requires hospitalization for concerns for ESBL UTI, requiring IV antibiotics Coding Level of Care Code Acute Felled Seam Operator Chainstitch for g Fwd Diagnoses Chest pain at rest R07.9 Shortness of breath R06.02 Chronic kidney disease with end stage renal failure on dialysis N18.6; Z99.2 Non-ST elevated myocardial infarction (non-STEMI) I21.4 Chronic diastolic CHF (congestive heart failure) I50.32 Diabetes mellitus E11.9 Mixed dyslipidemia E78.2 Urinary tract infection due to ESBL Klebsiella N39.0; B96.89
[2022-04-26 16:36] LABS: Glucose Point of Care 103 mg/dL (70-110)
[2022-04-26] MEDS: heparin 5,000 unit/mL INJ 1 mL 5000 UNIT SUBCUT (17:20)
[2022-04-26] MEDS: CLONazepam 0.5 mg Tablet 0.25 MG PO (17:57)
[2022-04-26] MEDS: atorvastatin 40 mg Tablet PO (19:36)
[2022-04-26] MEDS: insulin glargine 100 units/1 mL 5 UNIT SUBCUT (20:27)
[2022-04-26 20:33] LABS: Glucose Point of Care 144 mg/dL (70-110)
[2022-04-26] MEDS: cyclobenzaprine 10 mg Tablet PO (22:23)
[2022-04-26] MEDS: ALPRAZolam 0.5 mg Tablet 0.25 MG PO (22:23)
[2022-04-27] VITALS (26 sets, daily range): BP systolic 120–139; BP diastolic 58–78; PULSE 57–77; RESP 3–28; TEMP 36.5–37.2; O2SAT 85–100
--- NOTE | 2022-04-27 04:53 | P.PN_ITS ---
Vitals/I&O/Wt Last Vital Signs Temp 98.9 F 04/27/22 04:30 Pulse 63 04/27/22 04:30 Resp 28 H 04/27/22 04:30 BP 139/78 04/27/22 04:30 Pulse Ox 95 04/27/22 04:15 O2 Del Method 04/26/22 15:40 O2 Flow Rate 2 04/26/22 07:58 FiO2 30 04/26/22 22:45 04/26/22 04/26/22 04/27/22 14:59 22:59 06:59 Intake Total 375.034 / 375.034 470 / 845.034 Output Total 2609 / 2609 Balance 375.034 / 375.034 -2139 / -1763.966 Weight last 48 hrs Weight 81.5 kg Weight 81.647 kg Data 04/26/22 03:00 04/26/22 03:00 A&P Assessment and plan (1) ESRD (end stage renal disease) on dialysis: seen via telemedicine with assistance of RN at bedside Plan 1. ESRD. HD usually //S. HD Wednesday 4h, 2.5L UF. This week her schedule in outpatient unit is M/W/Sat 2. Volume overload 3. Hypervolemic hyponatremia 4. Diabetes, hypertension Rec: No IVs, BPs, blood draws LUE. Continue outpatient antihypertensives. Coding Level of Care Code Acute Local Sales Associate for Maris Braden Diagnoses ESRD (end stage renal disease) on dialysis N18.6; Z99.2
[2022-04-27] MEDS: HYDROcodone-acetaminophen 5-325 mg Tablet 1 TAB PO ×2 (05:04→11:59)
[2022-04-27] MEDS: levothyroxine 150 mcg Tablet PO (05:04)
[2022-04-27] MEDS: heparin 5,000 unit/mL INJ 1 mL 5000 UNIT SUBCUT (05:05)
[2022-04-27] MEDS: meropenem 500 MG in sodium chloride 0.9% (plus) 50 ML 100 MG IV (05:08)
[2022-04-27 05:22] LABS: Basophils % 0.6 %; Eosinophils # 0.2 10^3/uL (0.0-0.8); Eosinophils % 7.1 %; Hematocrit 31.6 % (37.0-47.0); Hemoglobin 9.9 g/dL (11.5-15.3); Lymphocytes # 0.7 10^3/uL (0.8-4.8); Lymphocytes % 20.9 %; Mean Corpuscular HGB Conc 31.3 g/dL (30.0-36.0); Mean Corpuscular Hemoglobin 31.5 pg (28.0-34.0); Mean Corpuscular Volume 100.6 fl (81-99); Mean Platelet Volume 11.3 fL (7.4-10.4); Monocytes # 0.4 10^3/uL (0.2-0.9); Monocytes % 12.4 %; Neutrophils # 1.99 10^3/uL (1.8-7.7); Neutrophils % 58.7 %; Nucleated Red Blood Cells % 0 %; Platelet Count 152 10^3/cmm (130-400); Red Blood Count 3.14 10^6/uL (4.1-5.3); Red Cell Distribution Width 15.5 % (12.1-15.1); White Blood Count 3.4 10^3/uL (4.0-10.0)
[2022-04-27 05:42] LABS: Alanine Aminotransferase 9 U/L (0-33); Alkaline Phosphatase 52 U/L (35-105); Blood Urea Nitrogen 17 mg/dL (6-20); Calcium 8.5 mg/dL (8.5-10.5); Carbon Dioxide 28 mmol/L (22-29); Chloride 99 mmol/L (98-107); Globulin 2.5 g/dL (1.3-4.6); Glomerular Filtration Rate 13.4 mL/min (90-130); Glucose 81 mg/dL (65-115); Magnesium 2.4 mg/dL (1.7-2.3); Osmolality Calculated 281 mOsm/kg (285-295); Phosphorus 3.5 mg/dL (2.5-4.5); Sodium 135 mmol/L (136-145); Total Bilirubin 0.4 mg/dL (0.15-1.2); Total Protein 5.5 g/dL (6.6-8.7)
[2022-04-27 05:43] LABS: Anion Gap 12.2 (5-19); Aspartate Amino Transferase 17 U/L (0-32); Potassium 4.2 mmol/L (3.5-5.1)
[2022-04-27 06:24] LABS: Glucose Point of Care 89 mg/dL (70-110)
[2022-04-27] MEDS: isosorbide mononitrate ER 60 mg Tablet PO (08:49)
[2022-04-27] MEDS: cholecalciferol (vitamin D3) 1,000 unit Tablet 1000 UNIT PO (08:49)
[2022-04-27] MEDS: pantoprazole DR 40 mg Tablet PO (08:50)
[2022-04-27] MEDS: sertraline 50 mg Tablet PO (08:50)
[2022-04-27] MEDS: escitalopram 10 mg Tablet 20 MG PO (08:50)
[2022-04-27] MEDS: carvedilol 12.5 mg Tablet PO (08:50)
[2022-04-27] MEDS: amlodipine 10 mg Tablet PO (08:50)
[2022-04-27] MEDS: aspirin 81 mg Chew Tablet PO (08:50)
[2022-04-27] MEDS: hyDRALAzine 50 mg Tablet 100 MG PO (08:50)
--- NOTE | 2022-04-27 10:24 | PM.DCS ---
Discharge Providers Date of Admission: 04/25/22 08:47 Date of Discharge: April 27, 2022 Attending Provider at Admission: Maikol Lemos MD Attending Provider at Discharge: Maikol Lemos MD Primary Care Provider: Jacob Sharp DO Diagnoses at Discharge Discharge Diagnosis (1) ESRD (end stage renal disease) on dialysis: Status: Acute Reason for Visit Reason for Visit: CHEST PAIN; SOB; DIALYSIS Hospital Course Hospital Course Rizwana Herzog is a 57 year old female with a past medical history of CKD on dialysis, DOROTEO on CPAP, diastolic dysfunction, EF 50%, COPD, who presents to [facility] [place] due to complaints of chest pain.? She tells me that she was at dialysis today, and she has been increasingly short of breath, and she started develop severe substernal chest pain, they had to stop dialysis after 15 minutes.? She is tells me that she has had substernal chest pain on and off throughout the week. Patient was admitted [facility] for NSTEMI, no recurrent chest pain during hospitalizations, no acute ST-T wave changes, she was monitored for 48 hours as inpatient, no recurrent chest pain, she had a negative cath a few months ago, after consultation with cardiology the decision was made to medically manage She did have fluid overload, received inpatient dialysis overall clinically improved For her weakness and fatigue complaints, initially there was concerns that she might have a ESBL UTI given her past medical history however her urine culture is unremarkable, overall she is clinically improving, will discharge home Physical Exam Const: COMMON NORMALS: no acute distress and patient oriented x3 Resp: COMMON NORMALS: normal respiratory effort, No retractions, No use of accessory muscles and clear to auscultation bilaterally AUSCULTATION: clear to auscultation bilaterally Cardio: COMMON NORMALS: regular rate, regular rhythm, S1 normal heart sound present and S2 normal heart sound present RATE: regular rate RHYTHM: regular rhythm HEART SOUNDS: S1 normal heart sound present and S2 normal heart sound present GI: COMMON NORMALS: Normal to inspection, nondistended, normoactive bowel sounds present and non-tender Extremity: COMMON NORMALS: no pedal edema Neuro: COMMON NORMALS: patient oriented x3 Psych: COMMON NORMALS: mental status grossly normal Discharge Data Studies Completed and Pending Completed Studies During Hospitalization Category Date Time Status XR chest 1V portable [id number] Stat Exams 04/25/22 07:31 Completed Pending at discharge Category Date Time Status Complete Blood Count w/Auto AM LABS Lab 04/28/22 04:00 Ordered Comprehensive Metabolic Panel AM LABS Lab 04/28/22 04:00 Ordered Magnesium AM LABS Lab 04/28/22 04:00 Ordered Phosphorus AM LABS Lab 04/28/22 04:00 Ordered Urine Culture Stat Lab 04/26/22 10:04 Results CV. echo complete* [id number] Urgent Ultrasound 04/25/22 08:44 Taken Radiology Impressions Chest X-Ray 04/25/22 07:31 IMPRESSION: Improved multilobar pneumonia relative to 03/22/2022. There are some minimal residual opacities in the right greater than lower lungs. ADDENDUM: 04/25/22 0805 Should state There are some minimal residual opacities in the right greater than LEFT lower lungs. Laboratory Results WBC 3.4 10^3/uL (4.0-10.0) L 04/27/22 04:23 RBC 3.14 10^6/uL (4.1-5.3) L 04/27/22 04:23 Hgb 9.9 g/dL (11.5-15.3) L 04/27/22 04:23 Hct 31.6 % (37.0-47.0) L 04/27/22 04:23 MCV 100.6 fl (81-99) H 04/27/22 04:23 MCH 31.5 pg (28.0-34.0) 04/27/22 04:23 MCHC 31.3 g/dL (30.0-36.0) 04/27/22 04:23 RDW 15.5 % (12.1-15.1) H 04/27/22 04:23 Plt Count 152 10^3/cmm (130-400) 04/27/22 04:23 MPV 11.3 fL (7.4-10.4) H 04/27/22 04:23 Neut % (Auto) 58.7 % 04/27/22 04:23 Lymph % (Auto) 20.9 % 04/27/22 04:23 [place] % (Auto) 12.4 % 04/27/22 04:23 Eos % (Auto) 7.1 % 04/27/22 04:23 Baso % (Auto) 0.6 % 04/27/22 04:23 Neut # (Auto) 1.99 10^3/uL (1.8-7.7) 04/27/22 04:23 Lymph # (Auto) 0.7 10^3/uL (0.8-4.8) L 04/27/22 04:23 [place] # (Auto) 0.4 10^3/uL (0.2-0.9) 04/27/22 04:23 Eos # (Auto) 0.2 10^3/uL (0.0-0.8) 04/27/22 04:23 Baso # (Auto) 0.0 10^3/uL (0.0-0.1) 04/27/22 04:23 Nucleated RBC % (auto) 0 % 04/27/22 04:23 Nucleated RBCs # 0.0 /100WBC 04/27/22 04:23 APTT 22.4 SECONDS (23.9-36.7) L D 04/26/22 03:00 Sodium 135 mmol/L (136-145) L 04/27/22 04:23 Potassium 4.2 mmol/L (3.5-5.1) 04/27/22 04:23 Chloride 99 mmol/L (98-107) 04/27/22 04:23 Carbon Dioxide 28 mmol/L (22-29) 04/27/22 04:23 Anion Gap 12.2 (5-19) 04/27/22 04:23 BUN 17 mg/dL (6-20) 04/27/22 04:23 Creatinine 3.5 mg/dL (0.5-0.9) H 04/27/22 04:23 GFR Calculation 13.4 mL/min (90-130) L 04/27/22 04:23 Glucose 81 mg/dL (65-115) 04/27/22 04:23 POC Glucose 89 mg/dL (70-110) 04/27/22 06:16 Estimat Average Glucose 82 04/25/22 07:50 Hemoglobin A1c 4.5 % (4.0-6.0) 04/25/22 07:50 Calculated Osmolality 281 mOsm/kg (285-295) L 04/27/22 04:23 Lactate 0.7 mmol/L (0.5-2.2) 04/25/22 07:50 Calcium 8.5 mg/dL (8.5-10.5) 04/27/22 04:23 Phosphorus 3.5 mg/dL (2.5-4.5) 04/27/22 04:23 Magnesium 2.4 mg/dL (1.7-2.3) H 04/27/22 04:23 Total Bilirubin 0.4 mg/dL (0.15-1.2) 04/27/22 04:23 AST 17 U/L (0-32) 04/27/22 04:23 ALT 9 U/L (0-33) 04/27/22 04:23 Alkaline Phosphatase 52 U/L (35-105) 04/27/22 04:23 Troponin T Baseline 122 ng/L (0-10) H* 04/25/22 07:50 Troponin T 120 Minute 113.9 ng/L (0-10) H 04/25/22 10:08 Delta Troponin T -8.1 ABS# (0-10) L 04/25/22 10:08 Troponin T Hi Sens 6Hr 111.8 ng/L (0-10) H 04/25/22 14:05 Troponin T Hi Sens 6Hr Delta -10.2 ng/L (0-12) L 04/25/22 14:05 C-Reactive Protein 5.9 mg/L (0.0-4.9) H 04/25/22 07:50 NT-Pro-B Natriuret Pep > 01507 pg/mL (0-125) H 04/25/22 07:50 NT-Pro-B Natriuret Pep Cancelled 04/25/22 07:50 Total Protein 5.5 g/dL (6.6-8.7) L 04/27/22 04:23 Albumin 3.0 g/dL (3.5-5.2) L 04/27/22 04:23 Globulin 2.5 g/dL (1.3-4.6) 04/27/22 04:23 Triglycerides 94 mg/dL (0-150) 04/25/22 07:50 Cholesterol 168 mg/dL (0-200) 04/25/22 07:50 LDL Cholesterol, Calc 101 mg/dL (50-129) 04/25/22 07:50 HDL Cholesterol 48 mg/dL (60-100) L 04/25/22 07:50 LDL/HDL Ratio 2.10 RATIO (0.00-3.22) 04/25/22 07:50 Cholesterol/HDL Ratio 3.50 mg/dL (0.0-4.40) 04/25/22 07:50 Procalcitonin 0.21 ng/mL (0-0.5) 04/25/22 07:50 TSH 17.20 uIU/mL (0.27-4.20) H 04/25/22 07:50 Urine Color Yellow (Yellow) 04/25/22 15:45 Urine Appearance Cloudy (CLEAR) A 04/25/22 15:45 Urine pH 9 (5-7) H 04/25/22 15:45 Ur Specific [place] 1.015 (1.005-1.030) 04/25/22 15:45 Urine Protein 3+ (Negative) H 04/25/22 15:45 Urine Glucose (UA) 4+ (Normal) H 04/25/22 15:45 Urine Ketones Negative (Negative) 04/25/22 15:45 Urine Blood 2+ (Negative) H 04/25/22 15:45 Urine Nitrate Negative (Negative) 04/25/22 15:45 Urine Bilirubin Neg (Negative) 04/25/22 15:45 Prot Sulfosalicylic Acd Positive (Negative) 04/25/22 15:45 Urine Urobilinogen Norm mg/dL (Negative) 04/25/22 15:45 Ur Leukocyte Esterase 2+ (Negative) H 04/25/22 15:45 Urine RBC 0-4 /hpf (0-2) H 04/25/22 15:45 Urine WBC Too numerous to cnt /hpf (0-5) H 04/25/22 15:45 Ur Squamous Epith Cells 40-55 /hpf (0-5) H 04/25/22 15:45 Amorphous Sediment Not Reportable 04/25/22 15:45 Urine Bacteria 4+ /hpf (NONE) H 04/25/22 15:45 Hep Bs Antigen Non-reactive (Nonreactive) 04/25/22 07:50 Influenza Type A Ag Negative (Negative) 04/25/22 10:13 Influenza Type B Ag Negative (Negative) 04/25/22 10:13 SARS-CoV-2 Ag (Rapid) Negative (Negative) 04/25/22 10:13 Vitals Last Vital Signs Temp 98.4 F 04/27/22 07:32 Pulse 67 04/27/22 08:38 Resp 16 04/27/22 08:38 BP 128/68 04/27/22 07:32 Pulse Ox 96 04/27/22 08:38 O2 Del Method 04/27/22 08:35 O2 Flow Rate 2 04/27/22 08:35 FiO2 30 04/27/22 04:30 Discharge Plan Discharge Patient Disposition: Home Condition: Stable Prescriptions: New ciprofloxacin HCl [Cipro] 250 mg tablet 250 mg PO DAILY 3 Days Qty: 3 0RF Continued escitalopram oxalate 20 mg tablet 20 mg PO DAILY cyclobenzaprine 10 mg tablet 10 mg PO TID PRN (Reason: muscle spasm) Qty: 30 2RF tizanidine 4 mg capsule 4 mg PO Q6H PRN (Reason: muscle spasticity) Qty: 60 2RF Rx Instructions: do not exceed 3 doses per 24 hrs ketoconazole 2 % cream 1 applic topical DAILY Qty: 30 0RF clonazepam 0.25 mg tablet,disintegrating 0.25 mg PO BID PRN (Reason: Anxiety) Qty: 30 0RF pantoprazole 40 mg tablet,delayed release (DR/EC) 40 mg PO DAILY@08 Qty: 90 1RF (DME) pen needle, diabetic [ReliOn Pen [place]] 32 gauge x 5/32 needle See Rx Instructions .ROUTE .MEDSUPPLY Qty: 100 6RF Rx Instructions: use for insulin injections (DME) PROSTHETIC SUPPLIES See Rx Instructions .Route .MEDSUPPLY Qty: 1 0RF Rx Instructions: As directed levothyroxine [Euthyrox] 150 mcg tablet 150 mcg PO QAM Qty: 90 3RF atorvastatin 40 mg tablet 40 mg PO DAILY@20 Qty: 90 3RF amlodipine 10 mg tablet 10 mg PO DAILY Qty: 90 1RF aspirin 81 mg Tablet,Chewable 81 mg PO DAILY@08 Hold Instructions: Resume on 10/24/21. cholecalciferol (vitamin D3) [Vitamin D3] 25 mcg (1,000 unit) Tablet 25 mcg PO DAILY@08 omega 2-olp-tsi-fish oil [Fish Oil] 300-1,000 mg Capsule,Delayed Release(Dr/Ec) 1 cap PO BID@08,20 Glucosamine Chondroitin 550-30-1 mg Capsule 1 cap PO DAILY hydralazine 100 mg tablet 100 mg PO BID isosorbide mononitrate 60 mg tablet extended release 24 hr 60 mg PO DAILY ketorolac 0.5 % drops 1 drp ophthalmic (eye) BID Rx Instructions: right eye prednisolone acetate 1 % drops,suspension 1 drp ophthalmic (eye) QID Rx Instructions: left eye Lasix 40 mg Tablet 40 mg PO BID spironolactone 25 mg Tablet 25 mg PO DAILY Nitrostat 0.4 mg Tablet, Sublingual 0.4 mg SUBLINGUAL Q5M PRN (Reason: Chest Pain) Rx Instructions: do not exceed 3 doses per episode albuterol sulfate 90 mcg/actuation Hfa Aerosol Inhaler 2 puff INHALATION Q4H PRN (Reason: Shortness Of Breath) cinacalcet 60 mg Tablet 60 mg PO DAILY Combivent Respimat 20-100 mcg/actuation Mist 1 puff INHALATION DAILY PRN (Reason: Shortness Of Breath) Rx Instructions: space evenly during waking hours Dialyvite 100-1 mg tablet 1 tab PO DAILY insulin glargine [Lantus Solostar U-100 Insulin] 100 unit/mL (3 mL) insulin pen 5 unit SUBCUT BID@,20 Qty: 15 12RF sertraline 50 mg tablet 50 mg PO DAILY carvedilol 12.5 mg tablet 12.5 mg PO BID lactulose [Constulose] 10 gram/15 mL solution 10 g PO DAILY PRN (Reason: Constipation) Discharge Orders: Discharge Order (Routine); Ordered 04/27/22 Ordered By: Maikol Lemos Referrals: Jacob Sharp DO [Primary Care Provider] - 05/04/22 1:30 pm Patient Instructions: Opioid Safety Discharge Attestations Time Spent in Discharge Care*: less than 30 min Status at Discharge: Cognitive status at discharge: cognitively intact, Behavioral status at discharge: cooperative, Quality Metrics Clinical Quality Measures [ No reported AMI, CVA or VTE this stay] Coding Level of Care Code Acute Chg FW DC note Exam Detailed Diagnoses ESRD (end stage renal disease) on dialysis N18.6; Z99.2
[2022-04-27 11:21] LABS: Glucose Point of Care 150 mg/dL (70-110)
[2022-04-27] MEDS: insulin lispro 100 unit/1 mL SUBCUT (12:04)
--- NOTE | 2022-04-28 15:01 | PC.SOCIAL ---
VRE Patient notified of urine culture VRE and zyvox prescription at [facility]. Updated her that Dr. Lemos would like a CBC and CMP drawn, and Dr. Sharp's office would call her with appointment date/time. Spoke with Dr. Sharp's nurse about labs, she states that she will get them in.
== END 2022-04-27 12:37 | disposition home or self-care (01) | DRG 280 ==
LOC: ER 08:52 → MEDSURG 09:42 → ER 10:09 → CSU 11:00 → MEDSURG 04-27 05:31
PROVIDERS: Internal Medicine; Admitting Provider Family Medicine; Emergency Provider Family Medicine; PCP Family Medicine; Visit Provider Family Medicine
DX: I21.4 Non-ST elevation (NSTEMI) myocardial infarction (principal); N18.6 End stage renal disease; I13.2 Hypertensive heart and chronic kidney disease with heart failure and with stage 5 chronic kidney disease, or end stage renal disease; I50.32 Chronic diastolic (congestive) heart failure; F33.9 Major depressive disorder, recurrent, unspecified; N39.0 Urinary tract infection, site not specified; E11.22 Type 2 diabetes mellitus with diabetic chronic kidney disease; Z99.2 Dependence on renal dialysis; G47.33 Obstructive sleep apnea (adult) (pediatric); Z99.89 Dependence on other enabling machines and devices; J44.9 Chronic obstructive pulmonary disease, unspecified; D63.1 Anemia in chronic kidney disease; F43.25 Adjustment disorder with mixed disturbance of emotions and conduct; F41.1 Generalized anxiety disorder; I25.10 Atherosclerotic heart disease of native coronary artery without angina pectoris; Z95.5 Presence of coronary angioplasty implant and graft; K21.9 Gastro-esophageal reflux disease without esophagitis; E78.2 Mixed hyperlipidemia; E03.9 Hypothyroidism, unspecified; E11.51 Type 2 diabetes mellitus with diabetic peripheral angiopathy without gangrene; Z86.16 Personal history of COVID-19; Z86.73 Personal history of transient ischemic attack (TIA), and cerebral infarction without residual deficits; Z79.51 Long term (current) use of inhaled steroids; Z79.4 Long term (current) use of insulin; Z79.82 Long term (current) use of aspirin; B96.20 Unspecified Escherichia coli [E. coli] as the cause of diseases classified elsewhere; Z89.511 Acquired absence of right leg below knee
CPT/HCPCS: 36415; 36416; 71045; 80048; 80053; 80061; 81001; 82962; 83036; 83605; 83735; 83880; 84100; 84145; 84443; 84484; 85025; 85730; 86140; 87077; 87086; 87186; 87340; 87426; 87804; 90935; 93005; 93306; 94660; 94664; 96372; 96374; 96375; 99285; J1644; J1815; J2185; J2405; J3490; Q3014

== ENCOUNTER 2022-05-02 05:17 | Observation (INO) | payer MEDICARE, MEDICAID, SELFPAY ==
[2022-05-02] VITALS (9 sets, daily range): BP systolic 106–186; BP diastolic 63–96; PULSE 58–142; RESP 16–20; TEMP 36.8–37; O2SAT 73–96; BMI 29.9
--- NOTE | 2022-05-02 05:31 | XRR_ITS ---
PROCEDURE INFORMATION: Exam: XR Chest Exam date and time: 05/02/2022 6:51 AM Age: 57 years old Clinical indication: Shortness of breath; Additional info: SOB TECHNIQUE: Imaging protocol: Radiologic exam of the chest. Views: 1 view. COMPARISON: CR (CHEST, ) 04/25/2022 8:50 AM FINDINGS: Lungs: There are worsening bilateral infiltrates compared with 04/25/2022, findings could represent worsening bilateral basilar pneumonia although this may represent waxing and waning pulmonary edema. Pleural spaces: Hazy opacities in the lower hemithoraces could represent small bilateral pleural effusions. Heart/Mediastinum: Unremarkable. No cardiomegaly. Bones/joints: Unremarkable. XR/XR chest 1V portable [id number] IMPRESSION: 1. Worsening bilateral basilar infiltrates compared with 04/25/2022. Although these findings could represent worsening bilateral basilar pneumonia, waxing and waning pulmonary edema cannot be excluded. 2. Hazy opacities in the lower hemithoraces could represent small pleural effusions.
--- NOTE | 2022-05-02 05:33 | W.ED.SOB ---
Documented by User: Carlos A Jeronimo MD 05/02/22 05:45 HPI - SOB/Dyspnea General: Chief Complaint: Shortness of Breath/Dyspnea Stated Complaint: Sob Time Seen by Provider: 05/02/22 05:28 Source: patient Mode of arrival: ambulatory Limitations: no limitations History of Present Illness: HPI Narrative: 57-year-old female is very well-known to the ER has a history of end-stage renal disease and is on dialysis. She states she typically goes Wednesday states this week she will go Wednesday and spoke to get dialysis today due to the holidays. States she woke up this morning she is feeling short of breath. She states that she typically does not wear oxygen only wears it as needed. Patient is hypoxic here. She denies any vomiting or diarrhea. Denies any chest pain. She has any cough or fever. Associated symptoms: Deny abdominal pain, chest pain, fever(s), nausea or vomiting Review of Systems Const: Denies: fever(s), chills, body aches or change in appetite Eyes: Denies: blurry vision or eye discomfort ENMT: Denies: throat pain or dental pain Card: Denies: chest pain Resp: Reports: dyspnea GI: Denies: abdominal pain, nausea, vomiting or diarrhea : Denies: dysuria Musc: Denies: neck pain or back pain Skin/Breast: Denies: rash Neuro: Denies: headache(s) Psych: Denies: depression Refugio/Lymph: Denies: easy bruising All/Imm: Denies: urticaria PFSH ED PFSH: Medical History Acute dyspnea Acute hyperkalemia Adjustment disorder with mixed disturbance of emotions and conduct Anemia in chronic kidney disease Anxiety Anxiety and depression BPPV (benign paroxysmal positional vertigo) CAD (coronary artery disease) Carotid stenosis 04/2020: Right < 50%, Left near 70% CHF exacerbation Chronic diastolic CHF (congestive heart failure) 12/2020 EF 55%, grade II/IV diastolic dysfunction Chronic kidney disease Chronic left sacroiliac joint pain CKD (chronic kidney disease) stage 5, GFR less than 15 ml/min Claustrophobia Compressive atelectasis Congestive heart failure Diabetes mellitus Diabetes mellitus, with long-term current use of insulin Diverticulitis Elevated troponin End stage renal disease End-stage renal disease (ESRD) ESBL (extended spectrum beta-lactamase) producing bacteria infection ESRD (end stage renal disease) on dialysis DAILY (generalized anxiety disorder) Gastroparesis GERD (gastroesophageal reflux disease) Gram-negative bacteremia Hemodialysis catheter dysfunction HTN (hypertension) Hyperlipidemia Hypocalcemia due to chronic kidney disease Hypothyroidism Hypoxemia Light headedness Lumbar back pain Major depression, recurrent Mixed dyslipidemia Noncompliance DOROTEO on CPAP PAD (peripheral artery disease) Partial nontraumatic amputation of left foot (~06/2019) Peripheral vascular disease Peritonitis associated with peritoneal dialysis Phantom pain Pneumonia due to COVID-19 virus (~12/2020) Positive cardiac stress test Sleep apnea Suicidal ideation TIA (transient ischemic attack) Vitamin D deficiency Surgical History AV (arteriovenous fistula) (~10/2020) H/O hysterectomy with oophorectomy History of appendectomy History of cataract surgery History of heart artery stent PCI to LAD, done in [place], [place] 10/2018 ENRIQUE to mid LAD at [facility] 04/2020 History of hysterectomy History of left heart catheterization 04/2020 Findings: 1. There is severe coronary artery disease. 2. FFR of mid LAD was 0.76. 3. Severe OM 2 stenosis. However this is a small sized distal vessel. 4. Mid Left Anterior Descending Coronary Artery was treated with Balloon and Drug Eluting Stent History of right below knee amputation Peritoneal dialysis catheter in place Removed due to recurrent peritonitis S/P cholecystectomy S/P hemodialysis catheter insertion S/P PICC central line placement (~2019) Status post amputation of toe Family History Denies family history of CAD (coronary artery disease) Clotting disorder Dementia Bleeding disorder Social History Smoking and tobacco status: never smoked Alcohol intake: never Household members: spouse and family History of recent travel: No Female Reproductive History: Spontaneous abortions: No Physical Exam Const: COMMON NORMALS: patient oriented x3 GENERAL APPEARANCE: ill appearing HENMT: COMMON NORMALS: normocephalic and atraumatic HEAD & SCALP: normocephalic and atraumatic Eye: COMMON NORMALS: Equal, round and reactive pupils present and EOMs intact bilaterally PUPIL: Yes Equal, round and reactive pupils present Neck/C-Spine: COMMON NORMALS: full ROM and supple Chest: COMMONS NORMALS: normal inspection of the chest and normal palpation of entire chest wall Resp: COMMON NORMALS: normal respiratory effort, No retractions, No use of accessory muscles and clear to auscultation bilaterally AUSCULTATION: clear to auscultation bilaterally Cardio: COMMON NORMALS: regular rate, regular rhythm and No murmurs present (Cardio) RATE: regular rate RHYTHM: regular rhythm GI: COMMON NORMALS: Normal to inspection, nondistended, normoactive bowel sounds present, Soft to palpation, non-tender and no masses PALPATION: Yes Soft to palpation Extremity: COMMON NORMALS: normal to inspection and full ROM Neuro: COMMON NORMALS: patient oriented x3, moves all extremities and no focal motor deficits Psych: COMMON NORMALS: mental status grossly normal, Normal thought process present and cooperative THOUGHT PROCESS: Normal thought process present Skin: COMMON NORMALS: no rashes or lesions noted and no wounds GENERAL SKIN EXAM: no rashes or lesions noted Course Vital Signs: Vital signs: Vital Signs Temperature 98.2 F 05/02/22 05:23 Pulse Rate 116 H 05/02/22 07:00 Respiratory Rate 16 05/02/22 07:00 Blood Pressure 186/82 05/02/22 07:00 Pulse Oximetry 92 05/02/22 07:00 Oxygen Delivery Me thod 05/02/22 07:00 Oxygen Flow Rate 6 05/02/22 06:49 MDM - SOB/Dyspnea Lab Data 05/02/22 05:40 05/02/22 06:05 Labs/Radiology: Radiology Impressions Chest X-Ray 05/02/22 05:31 IMPRESSION: 1. Worsening bilateral basilar infiltrates compared with 04/25/2022. Although these findings could represent worsening bilateral basilar pneumonia, waxing and waning pulmonary edema cannot be excluded. 2. Hazy opacities in the lower hemithoraces could represent small pleural effusions. Laboratory Results WBC 6.3 10^3/uL (4.0-10.0) 05/02/22 05:40 RBC 3.60 10^6/uL (4.1-5.3) L 05/02/22 05:40 Hgb 11.2 g/dL (11.5-15.3) L 05/02/22 05:40 Hct 34.0 % (37.0-47.0) L 05/02/22 05:40 MCV 94.4 fl (81-99) 05/02/22 05:40 MCH 31.1 pg (28.0-34.0) 05/02/22 05:40 MCHC 32.9 g/dL (30.0-36.0) 05/02/22 05:40 RDW 15.7 % (12.1-15.1) H 05/02/22 05:40 Plt Count 199 10^3/cmm (130-400) 05/02/22 05:40 MPV 11.7 fL (7.4-10.4) H 05/02/22 05:40 Neut % (Auto) 76.8 % 05/02/22 05:40 Lymph % (Auto) 10.9 % 05/02/22 05:40 [place] % (Auto) 5.5 % 05/02/22 05:40 Eos % (Auto) 5.5 % 05/02/22 05:40 Baso % (Auto) 0.8 % 05/02/22 05:40 Neut # (Auto) 4.85 10^3/uL (1.8-7.7) 05/02/22 05:40 Lymph # (Auto) 0.7 10^3/uL (0.8-4.8) L 05/02/22 05:40 [place] # (Auto) 0.4 10^3/uL (0.2-0.9) 05/02/22 05:40 Eos # (Auto) 0.4 10^3/uL (0.0-0.8) 05/02/22 05:40 Baso # (Auto) 0.1 10^3/uL (0.0-0.1) 05/02/22 05:40 Nucleated RBC % (auto) 0 % 05/02/22 05:40 Nucleated RBCs # 0.0 /100WBC 05/02/22 05:40 PT 15.00 SECONDS (12.1-14.9) H 05/02/22 06:05 INR 1.14 (0.8-1.2) 05/02/22 06:05 Sodium 126 mmol/L (136-145) L 05/02/22 06:05 Potassium 5.3 mmol/L (3.5-5.1) H 05/02/22 06:05 Chloride 93 mmol/L (98-107) L 05/02/22 06:05 Carbon Dioxide 22 mmol/L (22-29) 05/02/22 06:05 Anion Gap 16.3 (5-19) 05/02/22 06:05 BUN 47 mg/dL (6-20) H 05/02/22 06:05 Creatinine 7.2 mg/dL (0.5-0.9) H* 05/02/22 06:05 GFR Calculation 5.8 mL/min (90-130) L 05/02/22 06:05 Glucose 117 mg/dL (65-115) H 05/02/22 06:05 Calculated Osmolality 275 mOsm/kg (285-295) L 05/02/22 06:05 Calcium 9.6 mg/dL (8.5-10.5) 05/02/22 06:05 Total Bilirubin 0.5 mg/dL (0.15-1.2) 05/02/22 06:05 AST 17 U/L (0-32) 05/02/22 06:05 ALT 11 U/L (0-33) 05/02/22 06:05 Alkaline Phosphatase 58 U/L (35-105) 05/02/22 06:05 Troponin T Baseline 117 ng/L (0-10) H* 05/02/22 06:05 NT-Pro-B Natriuret Pep 00378 pg/mL (0-125) H 05/02/22 06:05 Total Protein 6.0 g/dL (6.6-8.7) L 05/02/22 06:05 Albumin 3.5 g/dL (3.5-5.2) 05/02/22 06:05 Globulin 2.5 g/dL (1.3-4.6) 05/02/22 06:05 Influenza Type A Ag negative (Negative) 05/02/22 05:40 Influenza Type B Ag negative (Negative) 05/02/22 05:40 EKG Data EKG 1: I personally reviewed and interpreted this EKG as follows: EKG Interpretation Date: 05/02/22 EKG interpretation time: 05:40 Interpretation: sinus laura hr [address] or t wave abnormalities qrs 92 qtc 437 Discharge Plan Discharge Patient Disposition: Admitted As Inpatient Clinical Impression: Congestive heart failure, End-stage renal disease needing dialysis, Diabetes mellitus, Acute hyperkalemia Condition: Stable Prescriptions: No Action escitalopram oxalate 20 mg tablet 20 mg PO DAILY cyclobenzaprine 10 mg tablet 10 mg PO TID PRN (Reason: muscle spasm) Qty: 30 2RF tizanidine 4 mg capsule 4 mg PO Q6H PRN (Reason: muscle spasticity) Qty: 60 2RF Rx Instructions: do not exceed 3 doses per 24 hrs ketoconazole 2 % cream 1 applic topical DAILY Qty: 30 0RF clonazepam 0.25 mg tablet,disintegrating 0.25 mg PO BID PRN (Reason: Anxiety) Qty: 30 0RF pantoprazole 40 mg tablet,delayed release (DR/EC) 40 mg PO DAILY@08 Qty: 90 1RF (DME) pen needle, diabetic [ReliOn Pen [place]] 32 gauge x 5/32 needle See Rx Instructions .ROUTE .MEDSUPPLY Qty: 100 6RF Rx Instructions: use for insulin injections (DME) PROSTHETIC SUPPLIES See Rx Instructions .Route .MEDSUPPLY Qty: 1 0RF Rx Instructions: As directed levothyroxine [Euthyrox] 150 mcg tablet 150 mcg PO QAM Qty: 90 3RF atorvastatin 40 mg tablet 40 mg PO DAILY@20 Qty: 90 3RF amlodipine 10 mg tablet 10 mg PO DAILY Qty: 90 1RF aspirin 81 mg Tablet,Chewable 81 mg PO DAILY@08 Hold Instructions: Resume on 10/24/21. cholecalciferol (vitamin D3) [Vitamin D3] 25 mcg (1,000 unit) Tablet 25 mcg PO DAILY@08 omega 3-mhx-rgg-fish oil [Fish Oil] 300-1,000 mg Capsule,Delayed Release(Dr/Ec) 1 cap PO BID@08,20 Glucosamine Chondroitin 550-30-1 mg Capsule 1 cap PO DAILY hydralazine 100 mg tablet 100 mg PO BID isosorbide mononitrate 60 mg tablet extended release 24 hr 60 mg PO DAILY ketorolac 0.5 % drops 1 drp ophthalmic (eye) BID Rx Instructions: right eye prednisolone acetate 1 % drops,suspension 1 drp ophthalmic (eye) QID Rx Instructions: left eye Lasix 40 mg Tablet 40 mg PO BID spironolactone 25 mg Tablet 25 mg PO DAILY Nitrostat 0.4 mg Tablet, Sublingual 0.4 mg SUBLINGUAL Q5M PRN (Reason: Chest Pain) Rx Instructions: do not exceed 3 doses per episode albuterol sulfate 90 mcg/actuation Hfa Aerosol Inhaler 2 puff INHALATION Q4H PRN (Reason: Shortness Of Breath) cinacalcet 60 mg Tablet 60 mg PO DAILY Combivent Respimat 20-100 mcg/actuation Mist 1 puff INHALATION DAILY PRN (Reason: Shortness Of Breath) Rx Instructions: space evenly during waking hours Zyvox 600 mg tablet 600 mg PO BID 5 Days Qty: 10 0RF Dialyvite 100-1 mg tablet 1 tab PO DAILY insulin glargine [Lantus Solostar U-100 Insulin] 100 unit/mL (3 mL) insulin pen 5 unit SUBCUT BID@08,20 Qty: 15 12RF sertraline 50 mg tablet 50 mg PO DAILY carvedilol 12.5 mg tablet 12.5 mg PO BID lactulose [Constulose] 10 gram/15 mL solution 10 g PO DAILY PRN (Reason: Constipation) Referrals: Jacob Sharp DO [Primary Care Provider] - Sign Out Sign Out Data: Patient Sign Out occurred on 05/02/22 at 06:13. Patient's care was discussed, and care was transferred from to Karan Daniels DO. Coding Level of Care Code ED Instructor Traffic Safety for Chg Fwd Exam Comprehensive Documented by User: Karan Daniels DO 05/02/22 07:30 HPI - SOB/Dyspnea General: Chief Complaint: Shortness of Breath/Dyspnea Stated Complaint: Sob Time Seen by Provider: 05/02/22 05:28 PFSH ED PFSH: Medical History Acute dyspnea Acute hyperkalemia Adjustment disorder with mixed disturbance of emotions and conduct Anemia in chronic kidney disease Anxiety Anxiety and depression BPPV (benign paroxysmal positional vertigo) CAD (coronary artery disease) Carotid stenosis 04/2020: Right < 50%, Left near 70% CHF exacerbation Chronic diastolic CHF (congestive heart failure) 12/2020 EF 55%, grade II/IV diastolic dysfunction Chronic kidney disease Chronic left sacroiliac joint pain CKD (chronic kidney disease) stage 5, GFR less than 15 ml/min Claustrophobia Compressive atelectasis Congestive heart failure Diabetes mellitus Diabetes mellitus, with long-term current use of insulin Diverticulitis Elevated troponin End stage renal disease End-stage renal disease (ESRD) ESBL (extended spectrum beta-lactamase) producing bacteria infection ESRD (end stage renal disease) on dialysis DAILY (generalized anxiety disorder) Gastroparesis GERD (gastroesophageal reflux disease) Gram-negative bacteremia Hemodialysis catheter dysfunction HTN (hypertension) Hyperlipidemia Hypocalcemia due to chronic kidney disease Hypothyroidism Hypoxemia Light headedness Lumbar back pain Major depression, recurrent Mixed dyslipidemia Noncompliance DOROTEO on CPAP PAD (peripheral artery disease) Partial nontraumatic amputation of left foot (~06/2019) Peripheral vascular disease Peritonitis associated with peritoneal dialysis Phantom pain Pneumonia due to COVID-19 virus (~12/2020) Positive cardiac stress test Sleep apnea Suicidal ideation TIA (transient ischemic attack) Vitamin D deficiency Surgical History AV (arteriovenous fistula) (~10/2020) H/O hysterectomy with oophorectomy History of appendectomy History of cataract surgery History of heart artery stent PCI to LAD, done in [place], [place] 10/2018 ENRIQUE to mid LAD at [facility] 04/2020 History of hysterectomy History of left heart catheterization 04/2020 Findings: 1. There is severe coronary artery disease. 2. FFR of mid LAD was 0.76. 3. Severe OM 2 stenosis. However this is a small sized distal vessel. 4. Mid Left Anterior Descending Coronary Artery was treated with Balloon and Drug Eluting Stent History of right below knee amputation Peritoneal dialysis catheter in place Removed due to recurrent peritonitis S/P cholecystectomy S/P hemodialysis catheter insertion S/P PICC central line placement (~2019) Status post amputation of toe Family History Denies family history of CAD (coronary artery disease) Clotting disorder Dementia Bleeding disorder Social History Smoking and tobacco status: never smoked Alcohol intake: never Household members: spouse and family History of recent travel: No Course Vital Signs: Vital signs: Vital Signs Temperature 98.2 F 05/02/22 05:23 Pulse Rate 116 H 05/02/22 07:00 Respiratory Rate 16 05/02/22 07:00 Blood Pressure 186/82 05/02/22 07:00 Pulse Oximetry 92 05/02/22 07:00 Oxygen Delivery Me thod 05/02/22 07:00 Oxygen Flow Rate 6 05/02/22 06:49 MDM - SOB/Dyspnea Medical Decision Making Patient significantly fluid overloaded requiring 5 L by nasal cannula which is above her normal 2 to 2-1/2 L/min. I think she is in heart failure due to disruption of her usual schedule because of the holiday. Will admit consult nephrology discussed Dr. Recinos orders written Medical Records I reviewed the patient's medical records. Lab Data I reviewed the patient's lab results. 05/02/22 05:40 05/02/22 06:05 Labs/Radiology: Radiology Impressions Chest X-Ray 05/02/22 05:31 IMPRESSION: 1. Worsening bilateral basilar infiltrates compared with 04/25/2022. Although these findings could represent worsening bilateral basilar pneumonia, waxing and waning pulmonary edema cannot be excluded. 2. Hazy opacities in the lower hemithoraces could represent small pleural effusions. Laboratory Results WBC 6.3 10^3/uL (4.0-10.0) 05/02/22 05:40 RBC 3.60 10^6/uL (4.1-5.3) L 05/02/22 05:40 Hgb 11.2 g/dL (11.5-15.3) L 05/02/22 05:40 Hct 34.0 % (37.0-47.0) L 05/02/22 05:40 MCV 94.4 fl (81-99) 05/02/22 05:40 MCH 31.1 pg (28.0-34.0) 05/02/22 05:40 MCHC 32.9 g/dL (30.0-36.0) 05/02/22 05:40 RDW 15.7 % (12.1-15.1) H 05/02/22 05:40 Plt Count 199 10^3/cmm (130-400) 05/02/22 05:40 MPV 11.7 fL (7.4-10.4) H 05/02/22 05:40 Neut % (Auto) 76.8 % 05/02/22 05:40 Lymph % (Auto) 10.9 % 05/02/22 05:40 [place] % (Auto) 5.5 % 05/02/22 05:40 Eos % (Auto) 5.5 % 05/02/22 05:40 Baso % (Auto) 0.8 % 05/02/22 05:40 Neut # (Auto) 4.85 10^3/uL (1.8-7.7) 05/02/22 05:40 Lymph # (Auto) 0.7 10^3/uL (0.8-4.8) L 05/02/22 05:40 [place] # (Auto) 0.4 10^3/uL (0.2-0.9) 05/02/22 05:40 Eos # (Auto) 0.4 10^3/uL (0.0-0.8) 05/02/22 05:40 Baso # (Auto) 0.1 10^3/uL (0.0-0.1) 05/02/22 05:40 Nucleated RBC % (auto) 0 % 05/02/22 05:40 Nucleated RBCs # 0.0 /100WBC 05/02/22 05:40 PT 15.00 SECONDS (12.1-14.9) H 05/02/22 06:05 INR 1.14 (0.8-1.2) 05/02/22 06:05 Sodium 126 mmol/L (136-145) L 05/02/22 06:05 Potassium 5.3 mmol/L (3.5-5.1) H 05/02/22 06:05 Chloride 93 mmol/L (98-107) L 05/02/22 06:05 Carbon Dioxide 22 mmol/L (22-29) 05/02/22 06:05 Anion Gap 16.3 (5-19) 05/02/22 06:05 BUN 47 mg/dL (6-20) H 05/02/22 06:05 Creatinine 7.2 mg/dL (0.5-0.9) H* 05/02/22 06:05 GFR Calculation 5.8 mL/min (90-130) L 05/02/22 06:05 Glucose 117 mg/dL (65-115) H 05/02/22 06:05 Calculated Osmolality 275 mOsm/kg (285-295) L 05/02/22 06:05 Calcium 9.6 mg/dL (8.5-10.5) 05/02/22 06:05 Total Bilirubin 0.5 mg/dL (0.15-1.2) 05/02/22 06:05 AST 17 U/L (0-32) 05/02/22 06:05 ALT 11 U/L (0-33) 05/02/22 06:05 Alkaline Phosphatase 58 U/L (35-105) 05/02/22 06:05 Troponin T Baseline 117 ng/L (0-10) H* 05/02/22 06:05 NT-Pro-B Natriuret Pep 96873 pg/mL (0-125) H 05/02/22 06:05 Total Protein 6.0 g/dL (6.6-8.7) L 05/02/22 06:05 Albumin 3.5 g/dL (3.5-5.2) 05/02/22 06:05 Globulin 2.5 g/dL (1.3-4.6) 05/02/22 06:05 Influenza Type A Ag negative (Negative) 05/02/22 05:40 Influenza Type B Ag negative (Negative) 05/02/22 05:40 Discharge Plan Discharge Patient Disposition: Admitted As Inpatient Clinical Impression: Congestive heart failure, End-stage renal disease needing dialysis, Diabetes mellitus, Acute hyperkalemia Condition: Stable Prescriptions: No Action escitalopram oxalate 20 mg tablet 20 mg PO DAILY cyclobenzaprine 10 mg tablet 10 mg PO TID PRN (Reason: muscle spasm) Qty: 30 2RF tizanidine 4 mg capsule 4 mg PO Q6H PRN (Reason: muscle spasticity) Qty: 60 2RF Rx Instructions: do not exceed 3 doses per 24 hrs ketoconazole 2 % cream 1 applic topical DAILY Qty: 30 0RF clonazepam 0.25 mg tablet,disintegrating 0.25 mg PO BID PRN (Reason: Anxiety) Qty: 30 0RF pantoprazole 40 mg tablet,delayed release (DR/EC) 40 mg PO DAILY@08 Qty: 90 1RF (DME) pen needle, diabetic [ReliOn Pen [place]] 32 gauge x 5/32 needle See Rx Instructions .ROUTE .MEDSUPPLY Qty: 100 6RF Rx Instructions: use for insulin injections (DME) PROSTHETIC SUPPLIES See Rx Instructions .Route .MEDSUPPLY Qty: 1 0RF Rx Instructions: As directed levothyroxine [Euthyrox] 150 mcg tablet 150 mcg PO QAM Qty: 90 3RF atorvastatin 40 mg tablet 40 mg PO DAILY@20 Qty: 90 3RF amlodipine 10 mg tablet 10 mg PO DAILY Qty: 90 1RF aspirin 81 mg Tablet,Chewable 81 mg PO DAILY@08 Hold Instructions: Resume on 10/24/21. cholecalciferol (vitamin D3) [Vitamin D3] 25 mcg (1,000 unit) Tablet 25 mcg PO DAILY@08 omega 1-fzi-svb-fish oil [Fish Oil] 300-1,000 mg Capsule,Delayed Release(Dr/Ec) 1 cap PO BID@08,20 Glucosamine Chondroitin 550-30-1 mg Capsule 1 cap PO DAILY hydralazine 100 mg tablet 100 mg PO BID isosorbide mononitrate 60 mg tablet extended release 24 hr 60 mg PO DAILY ketorolac 0.5 % drops 1 drp ophthalmic (eye) BID Rx Instructions: right eye prednisolone acetate 1 % drops,suspension 1 drp ophthalmic (eye) QID Rx Instructions: left eye Lasix 40 mg Tablet 40 mg PO BID spironolactone 25 mg Tablet 25 mg PO DAILY Nitrostat 0.4 mg Tablet, Sublingual 0.4 mg SUBLINGUAL Q5M PRN (Reason: Chest Pain) Rx Instructions: do not exceed 3 doses per episode albuterol sulfate 90 mcg/actuation Hfa Aerosol Inhaler 2 puff INHALATION Q4H PRN (Reason: Shortness Of Breath) cinacalcet 60 mg Tablet 60 mg PO DAILY Combivent Respimat 20-100 mcg/actuation Mist 1 puff INHALATION DAILY PRN (Reason: Shortness Of Breath) Rx Instructions: space evenly during waking hours Zyvox 600 mg tablet 600 mg PO BID 5 Days Qty: 10 0RF Dialyvite 100-1 mg tablet 1 tab PO DAILY insulin glargine [Lantus Solostar U-100 Insulin] 100 unit/mL (3 mL) insulin pen 5 unit SUBCUT BID@08,20 Qty: 15 12RF sertraline 50 mg tablet 50 mg PO DAILY carvedilol 12.5 mg tablet 12.5 mg PO BID lactulose [Constulose] 10 gram/15 mL solution 10 g PO DAILY PRN (Reason: Constipation) Referrals: Jacob Sharp DO [Primary Care Provider] - Sign Out Sign Out Data: Patient Sign Out occurred on 05/02/22 at 06:13. Patient's care was discussed, and care was transferred from to Karan Daniels DO. Coding Level of Care Code ED Instructor Traffic Safety for Chg Fwd Exam Comprehensive
--- NOTE | 2022-05-02 05:40 | ECG_ITS ---
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 Measurements Intervals [place] Rate: 59 P: -9 [place]: 199 QRS: -53 QRSD: 92 T: 84 QT: 438 QTc: 435 Interpretive Statements SINUS BRADYCARDIA LEFT AXIS DEVIATION [QRS AXIS < -30] POSSIBLE ANTERIOR MYOCARDIAL INFARCTION , OF INDETERMINATE AGE [30 ms Q WAVE IN V3/V4, OR R < 0.2 mV IN V4] Compared to ECG 04/25/2022 13:22:03 Left-axis deviation now present Sinus rhythm no longer present Left anterior fascicular block no longer present Myocardial infarct finding still present Electronically Signed On 05-02-2022 11:03:43 DAY CARE TEACHER by Dong Pitt M.D. [id number]
[2022-05-02 05:53] LABS: Basophils # 0.1 10^3/uL (0.0-0.1); Basophils % 0.8 %; Eosinophils # 0.4 10^3/uL (0.0-0.8); Eosinophils % 5.5 %; Hemoglobin 11.2 g/dL (11.5-15.3); Lymphocytes # 0.7 10^3/uL (0.8-4.8); Lymphocytes % 10.9 %; Mean Corpuscular HGB Conc 32.9 g/dL (30.0-36.0); Mean Corpuscular Hemoglobin 31.1 pg (28.0-34.0); Mean Corpuscular Volume 94.4 fl (81-99); Mean Platelet Volume 11.7 fL (7.4-10.4); Monocytes # 0.4 10^3/uL (0.2-0.9); Monocytes % 5.5 %; Neutrophils # 4.85 10^3/uL (1.8-7.7); Neutrophils % 76.8 %; Nucleated Red Blood Cells % 0 %; Platelet Count 199 10^3/cmm (130-400); Red Cell Distribution Width 15.7 % (12.1-15.1); White Blood Count 6.3 10^3/uL (4.0-10.0)
[2022-05-02 06:16] LABS: Influenza A by IFA negative (Negative); Influenza B by IFA negative (Negative)
[2022-05-02 06:31] LABS: INR 1.14 (0.8-1.2)
[2022-05-02 06:46] LABS: Alanine Aminotransferase 11 U/L (0-33); Albumin Level 3.5 g/dL (3.5-5.2); Alkaline Phosphatase 58 U/L (35-105); Aspartate Amino Transferase 17 U/L (0-32); Blood Urea Nitrogen 47 mg/dL (6-20); Calcium 9.6 mg/dL (8.5-10.5); Carbon Dioxide 22 mmol/L (22-29); Chloride 93 mmol/L (98-107); Globulin 2.5 g/dL (1.3-4.6); Glomerular Filtration Rate 5.8 mL/min (90-130); Glucose 117 mg/dL (65-115); Osmolality Calculated 275 mOsm/kg (285-295); Sodium 126 mmol/L (136-145); Total Bilirubin 0.5 mg/dL (0.15-1.2)
[2022-05-02 06:47] LABS: Troponin(5th) Baseline 117 ng/L (0-10)
[2022-05-02 07:08] LABS: Anion Gap 16.3 (5-19)
[2022-05-02 07:09] LABS: Potassium 5.3 mmol/L (3.5-5.1)
--- NOTE | 2022-05-02 07:35 | ECG_ITS ---
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 Measurements Intervals [place] Rate: 64 P: 121 [place]: 212 QRS: -56 QRSD: 89 T: 82 QT: 411 QTc: 424 Interpretive Statements SINUS RHYTHM WITH FIRST DEGREE AV BLOCK LEFT AXIS DEVIATION [QRS AXIS < -30] POSSIBLE ANTERIOR MYOCARDIAL INFARCTION , OF INDETERMINATE AGE [30 ms Q WAVE IN V3/V4, OR R < 0.2 mV IN V4] Compared to ECG 05/02/2022 05:40:44 First degree AV block now present Sinus bradycardia no longer present Myocardial infarct finding still present Electronically Signed On 05-02-2022 11:07:06 SHAREPOINT ARCHITECT by Dong Pitt M.D. [email or web address] [id number]
--- NOTE | 2022-05-02 08:09 | P.CONIM_ITS ---
Providers/Reason For Consult Consulting Physician/Specialty*: Ashleigh Scruggs DO, telenephrology Reason for Consult*: ESRD, fluid overload Requesting Physician: Felicia Singh MD Attending Physician: Felicia Singh MD Primary Care Provider: Jacob Sharp DO History of Present Illness History of Present Illness Rizwana Herzog is a 57 year old female whose dialysis schedule was altered this week due to . Today is -- day since last dialysis Medications/Allergies Home Medications Medication Instructions Recorded Confirmed Last Taken Type aspirin 81 mg chewable tablet 81 mg PO DAILY@06/25/19 04/25/22 04/25/22 History omega 8-whw-xuf-fish oil 300 1 cap PO BID@01/17/20 04/25/22 04/25/22 History mg-1,000 mg capsule,delayed release (Fish Oil) cholecalciferol (vitamin D3) 25 25 mcg PO DAILY@05/14/20 04/25/22 04/25/22 History mcg (1,000 unit) tablet (Vitamin D3) pen needle, diabetic 32 gauge x #100 ea 06/17/21 04/25/22 Unknown Rx (ReliOn Pen [place]) escitalopram oxalate 20 mg tablet 20 mg PO DAILY 07/22/21 04/25/22 04/25/22 History PROSTHETIC SUPPLIES #1 ea 08/21/21 04/25/22 Unknown Rx vitamin B complex-vitamin C 100 1 tab PO DAILY 09/02/21 04/25/22 04/25/22 History mg-folic acid 1 mg tablet (Dialyvite) insulin glargine 100 unit/mL (3 5 unit (0.05 mL) SUBCUT BID@09/05/21 04/25/22 04/25/22 Rx mL) subcutaneous pen (Lantus #15 mL Solostar U-100 Insulin) glucosamine sulf dipot 1 cap PO DAILY 09/22/21 04/25/22 04/25/22 History chlr,msm,chond 550 mg-C 30 mg-janet 1 mg capsule (Glucosamine Chondroitin) levothyroxine 150 mcg tablet 150 mcg PO QAM #90 tabs 11/04/21 04/25/22 04/25/22 Rx (Euthyrox) cyclobenzaprine 10 mg tablet 10 mg PO TID PRN muscle spasm #30 11/13/21 04/25/22 02/01/22 Rx tabs hydralazine 100 mg tablet 100 mg PO BID 11/28/21 04/25/22 02/01/22 History isosorbide mononitrate 60 mg 60 mg PO DAILY 12/15/21 04/25/22 02/01/22 History tablet,extended release 24 hr ketorolac 0.5 % eye drops 1 drp ophthalmic (eye) BID 12/15/21 04/25/22 04/25/22 History prednisolone acetate 1 % eye 1 drp ophthalmic (eye) QID 12/15/21 04/25/22 04/25/22 History drops,suspension atorvastatin 40 mg tablet 40 mg PO DAILY@20 #90 tabs 12/17/21 04/25/22 04/24/22 Rx sertraline 50 mg tablet 50 mg PO DAILY 01/01/22 04/25/22 04/25/22 History amlodipine 10 mg tablet 10 mg PO DAILY #90 tabs 01/22/22 04/25/22 04/25/22 Rx carvedilol 12.5 mg tablet 12.5 mg PO BID 02/02/22 04/25/22 04/25/22 History lactulose 10 gram/15 mL oral 10 g PO DAILY PRN Constipation 02/02/22 04/25/22 Unknown History solution (Constulose) clonazepam 0.25 mg disintegrating 0.25 mg PO BID PRN Anxiety #30 tabs 02/16/22 04/25/22 Unknown Rx tablet ketoconazole 2 % topical cream 1 applic topical DAILY #30 grams 02/16/22 04/25/22 Unknown Rx pantoprazole 40 mg tablet,delayed 40 mg PO DAILY@08 #90 tabs 02/16/22 04/25/22 04/25/22 Rx release tizanidine 4 mg capsule 4 mg PO Q6H PRN muscle spasticity 02/16/22 04/25/22 Unknown Rx #60 caps albuterol sulfate 90 mcg/actuation 2 puff inhalation Q4H PRN 04/25/22 04/25/22 Unknown History aerosol inhaler Shortness Of Breath cinacalcet 60 mg tablet 60 mg PO DAILY 04/25/22 04/25/22 04/25/22 History furosemide 40 mg tablet (Lasix) 40 mg PO BID 04/25/22 04/25/22 04/25/22 History ipratropium 20 mcg-albuterol 100 1 puff inhalation DAILY PRN 04/25/22 04/25/22 Unknown History mcg/actuation mist for inhalation Shortness Of Breath (Combivent Respimat) nitroglycerin 0.4 mg sublingual 0.4 mg sublingual Q5M PRN Chest 04/25/22 04/25/22 Unknown History tablet (Nitrostat) Pain spironolactone 25 mg tablet 25 mg PO DAILY 04/25/22 04/25/22 04/25/22 History linezolid 600 mg tablet (Zyvox) 600 mg PO BID 5 days #10 tabs 04/28/22 Unknown Rx Allergies Allergy/AdvReac Type Severity Reaction Status Date / Time metformin [From Glucophage] Allergy Severe Unknown Verified 03/30/22 14:34 venlafaxine [From Effexor] Allergy Severe ADR-Shakine Verified 03/30/22 14:34 ss PFSH Acute PFSH: Medical History (Updated 05/02/22 @ 08:15 by Ashleigh Scruggs DO) Acute dyspnea Acute hyperkalemia Adjustment disorder with mixed disturbance of emotions and conduct Anemia in chronic kidney disease Anxiety Anxiety and depression BPPV (benign paroxysmal positional vertigo) CAD (coronary artery disease) Carotid stenosis 04/2020: Right < 50%, Left near 70% CHF exacerbation Chronic diastolic CHF (congestive heart failure) 12/2020 EF 55%, grade II/IV diastolic dysfunction Chronic kidney disease Chronic left sacroiliac joint pain CKD (chronic kidney disease) stage 5, GFR less than 15 ml/min Claustrophobia Compressive atelectasis Congestive heart failure Diabetes mellitus Diabetes mellitus, with long-term current use of insulin Diverticulitis Elevated troponin End stage renal disease End-stage renal disease (ESRD) ESBL (extended spectrum beta-lactamase) producing bacteria infection ESRD (end stage renal disease) on dialysis DAILY (generalized anxiety disorder) Gastroparesis GERD (gastroesophageal reflux disease) Gram-negative bacteremia Hemodialysis catheter dysfunction HTN (hypertension) Hyperlipidemia Hypocalcemia due to chronic kidney disease Hypothyroidism Hypoxemia Light headedness Lumbar back pain Major depression, recurrent Mixed dyslipidemia Noncompliance DOROTEO on CPAP PAD (peripheral artery disease) Partial nontraumatic amputation of left foot (~06/2019) Peripheral vascular disease Peritonitis associated with peritoneal dialysis Phantom pain Pneumonia due to COVID-19 virus (~12/2020) Positive cardiac stress test Sleep apnea Suicidal ideation TIA (transient ischemic attack) Vitamin D deficiency Surgical History AV (arteriovenous fistula) (~10/2020) H/O hysterectomy with oophorectomy History of appendectomy History of cataract surgery History of heart artery stent PCI to LAD, done in [place], [place] 10/2018 ENRIQUE to mid LAD at [facility] 04/2020 History of hysterectomy History of left heart catheterization 04/2020 Findings: 1. There is severe coronary artery disease. 2. FFR of mid LAD was 0.76. 3. Severe OM 2 stenosis. However this is a small sized distal vessel. 4. Mid Left Anterior Descending Coronary Artery was treated with Balloon and Drug Eluting Stent History of right below knee amputation Peritoneal dialysis catheter in place Removed due to recurrent peritonitis S/P cholecystectomy S/P hemodialysis catheter insertion S/P PICC central line placement (~2019) Status post amputation of toe Family History Denies family history of CAD (coronary artery disease) Clotting disorder Dementia Bleeding disorder Social History Smoking and tobacco status: never smoked Alcohol intake: never Household members: spouse and family History of recent travel: No Female Reproductive History: Spontaneous abortions: No Vitals/I&O/Wt Last Vital Signs Temp 98.2 F 05/02/22 05:23 Pulse 116 H 05/02/22 07:00 Resp 16 05/02/22 07:00 BP 186/82 05/02/22 07:00 Pulse Ox 92 05/02/22 07:00 O2 Del Method 05/02/22 07:00 O2 Flow Rate 6 05/02/22 06:49 Weight last 48 hrs Weight 81.647 kg Physical Exam Const: COMMON NORMALS: no acute distress and alert Extremity: GENERAL: Yes edema OTHER: LUE AVF + thrill no signs of infection per RN Neuro: SENSORIUM/ORIENTATION: Yes alert Data 05/02/22 05:40 05/02/22 06:05 Other Labs: BNP 34,379 CXR: Radiologist's impression: 1. Worsening bilateral basilar infiltrates compared with 04/25/2022. Although these findings could represent worsening bilateral basilar pneumonia, waxing and waning pulmonary edema cannot be excluded. 2. Hazy opacities in the lower hemithoraces could represent small pleural effusions. A&P Assessment and plan (1) End-stage renal disease (ESRD): seen via telemedicine with assistance of RN at bedside Plan 1. ESRD 2. Volume overload/pulmonary edema, with recurrent hospitalizations 3. Hypervolemic hyponatremia 4. Hypertension Rec: HD today 4h, 3.5L fluid removal, 2K bath. She only dialzes for 3h as outpatient. Will contact unit to recommend increase Td, if that does not work, 4x weekly HD Consult Attestations Medical Necessity Statement: see above Time Spent in Patient Care: 16 - 35 minutes Coding Level of Care Code Acute Tactical/Mobile Watch Officer for Maris Braden Diagnoses End-stage renal disease (ESRD) N18.6
[2022-05-02 08:59] LABS: Troponin 5 2HR 117.9 ng/L (0-10); Troponin 5 2HR Delta 0.9 ABS# (0-10)
[2022-05-02 11:27] LABS: Glucose Point of Care 123 mg/dL (70-110)
--- NOTE | 2022-05-02 11:30 | ECG_ITS ---
[facility] Test Date: 2022-05-02 Pat Name: Rizwana Herzog Department: Room: 269 Gender: Female [employer]: : 1965 Requested By: Carlos A Jeronimo Order Number: [id number] Catherine MD: Gerald Smith M.D. Measurements Intervals [place] Rate: 69 P: -11 OK: 201 QRS: -56 QRSD: 92 T: 86 QT: 390 QTc: 418 Interpretive Statements SINUS RHYTHM LEFT AXIS DEVIATION [QRS AXIS < -30] POSSIBLE ANTERIOR MYOCARDIAL INFARCTION , OF INDETERMINATE AGE [30 ms Q WAVE IN V3/V4, OR R < 0.2 mV IN V4] Nonspecific T wave Compared to ECG 05/02/2022 07:35:58 First degree AV block no longer present Myocardial infarct finding still present Electronically Signed On 05-02-2022 16:01:08 LAG SCREWER by Gerald Smith M.D. [id number]
--- NOTE | 2022-05-02 12:30 | PM.HP ---
Providers/Chief Complaint Admitting Physician: Felicia Singh MD Primary Care Provider: Jacob Sharp DO Chief Complaint: Sob History of Present Illness Rizwana Herzog is a 57 year old female e with a past medical history of CKD on dialysis, DOROTEO on CPAP, diastolic dysfunction, EF 50%, COPD,recently admitted 04/25 to 04/27 for NSTEMI on medical management. Due to the holidays her dialysis schedule had been changed. She was supposed to get dialysis today however prior to making it for outpatient dialysis she started to experience dyspnea and therefore presented to the emergency room. Review of Systems General: Reports: 10 or more systems reviewed and unremarkable except in HPI and below Const: Denies: fever(s), chills or body aches Eyes: Denies: change in vision, blurry vision or photophobia ENMT: Reports: hoarseness; Denies: throat pain, enlarged tonsils, odynophagia or nasal congestion Card: Denies: chest pain, palpitations, irregular heart rhythm, edema, swelling of feet/ankles, lightheadedness, pre-syncope, dyspnea on exertion or orthopnea Resp: Denies: dyspnea, productive cough, non-productive cough, wheezing, stridor, pain on inspiration, change in phlegm color, hemoptysis or chest congestion GI: Denies: abdominal pain, nausea, vomiting, hematemesis, coffee ground emesis, dysphagia, heartburn, diarrhea, constipation, GI cramping, change in stool character, hematochezia or melena : Denies: flank pain, difficulty voiding, dysuria, urinary frequency, urinary urgency, urinary hesitancy or hematuria Musc: Denies: neck pain, back pain, extremity pain, joint swelling, joint warmth or deformity Neuro: Denies: headache(s), numbness in extremities, weakness in extremities, sensory changes, difficulty walking, frequent falls, dizziness, vertigo, behavioral changes, Slurred speech present or seizure-like activity Psych: Denies: anxiety, depression, suicidal ideation or homicidal ideation Endo: Denies: polyuria, polydipsia, tired all the time, cold intolerance or hot flashes Refugio/Lymph: Denies: easy bruising or easy bleeding Medications/Allergies Home Medications Medication Instructions Recorded Confirmed Last Taken Type aspirin 81 mg chewable tablet 81 mg PO DAILY@08 0105/02/22 04/25/22 History omega 1-sdw-mlr-fish oil 300 1 cap PO BID@,01/17/20 05/02/22 04/25/22 History mg-1,000 mg capsule,delayed release (Fish Oil) cholecalciferol (vitamin D3) 25 25 mcg PO DAILY@08 05/14/20 05/02/22 04/25/22 History mcg (1,000 unit) tablet (Vitamin D3) pen needle, diabetic 32 gauge x #100 ea 06/17/21 05/02/22 Unknown Rx (ReliOn Pen [place]) escitalopram oxalate 20 mg tablet 20 mg PO DAILY 07/22/21 05/02/22 04/25/22 History PROSTHETIC SUPPLIES #1 ea 08/21/21 05/02/22 Unknown Rx vitamin B complex-vitamin C 100 1 tab PO DAILY 09/02/21 05/02/22 04/25/22 History mg-folic acid 1 mg tablet (Dialyvite) insulin glargine 100 unit/mL (3 5 unit (0.05 mL) SUBCUT BID@09/05/21 05/02/22 04/25/22 Rx mL) subcutaneous pen (Lantus #15 mL Solostar U-100 Insulin) glucosamine sulf dipot 1 cap PO DAILY 09/22/21 05/02/22 04/25/22 History chlr,msm,chond 550 mg-C 30 mg-janet 1 mg capsule (Glucosamine Chondroitin) levothyroxine 150 mcg tablet 150 mcg PO QAM #90 tabs 11/04/21 05/02/22 04/25/22 Rx (Euthyrox) cyclobenzaprine 10 mg tablet 10 mg PO TID PRN muscle spasm #30 11/13/21 05/02/22 02/01/22 Rx tabs hydralazine 100 mg tablet 100 mg PO BID 11/28/21 05/02/22 02/01/22 History isosorbide mononitrate 60 mg 60 mg PO DAILY 12/15/21 05/02/22 02/01/22 History tablet,extended release 24 hr ketorolac 0.5 % eye drops 1 drp ophthalmic (eye) BID 12/15/21 05/02/22 04/25/22 History prednisolone acetate 1 % eye 1 drp ophthalmic (eye) QID 12/15/21 05/02/22 04/25/22 History drops,suspension atorvastatin 40 mg tablet 40 mg PO DAILY@20 #90 tabs 12/17/21 05/02/22 04/24/22 Rx sertraline 50 mg tablet 50 mg PO DAILY 01/01/22 05/02/22 04/25/22 History amlodipine 10 mg tablet 10 mg PO DAILY #90 tabs 01/22/22 05/02/22 04/25/22 Rx carvedilol 12.5 mg tablet 12.5 mg PO BID 02/02/22 05/02/22 04/25/22 History lactulose 10 gram/15 mL oral 10 g PO DAILY PRN Constipation 02/02/22 05/02/22 Unknown History solution (Constulose) clonazepam 0.25 mg disintegrating 0.25 mg PO BID PRN Anxiety #30 tabs 02/16/22 05/02/22 Unknown Rx tablet ketoconazole 2 % topical cream 1 applic topical DAILY #30 grams 02/16/22 05/02/22 Unknown Rx pantoprazole 40 mg tablet,delayed 40 mg PO DAILY@08 #90 tabs 02/16/22 05/02/22 04/25/22 Rx release tizanidine 4 mg capsule 4 mg PO Q6H PRN muscle spasticity 02/16/22 05/02/22 Unknown Rx #60 caps albuterol sulfate 90 mcg/actuation 2 puff inhalation Q4H PRN 04/25/22 05/02/22 Unknown History aerosol inhaler Shortness Of Breath cinacalcet 60 mg tablet 60 mg PO DAILY 04/25/22 05/02/22 04/25/22 History furosemide 40 mg tablet (Lasix) 40 mg PO BID 04/25/22 05/02/22 04/25/22 History ipratropium 20 mcg-albuterol 100 1 puff inhalation DAILY PRN 04/25/22 05/02/22 Unknown History mcg/actuation mist for inhalation Shortness Of Breath (Combivent Respimat) nitroglycerin 0.4 mg sublingual 0.4 mg sublingual Q5M PRN Chest 04/25/22 05/02/22 Unknown History tablet (Nitrostat) Pain spironolactone 25 mg tablet 25 mg PO DAILY 04/25/22 05/02/22 04/25/22 History linezolid 600 mg tablet (Zyvox) 600 mg PO BID 5 days #10 tabs 04/28/22 05/02/22 Unknown Rx Allergies Allergy/AdvReac Type Severity Reaction Status Date / Time metformin [From Glucophage] Allergy Severe Unknown Verified 03/30/22 14:34 venlafaxine [From Effexor] Allergy Severe ADR-Shakine Verified 03/30/22 14:34 ss PFSH Acute PFSH: Medical History Acute dyspnea Acute hyperkalemia Adjustment disorder with mixed disturbance of emotions and conduct Anemia in chronic kidney disease Anxiety Anxiety and depression BPPV (benign paroxysmal positional vertigo) CAD (coronary artery disease) Carotid stenosis 04/2020: Right < 50%, Left near 70% CHF exacerbation Chronic diastolic CHF (congestive heart failure) 12/2020 EF 55%, grade II/IV diastolic dysfunction Chronic kidney disease Chronic left sacroiliac joint pain CKD (chronic kidney disease) stage 5, GFR less than 15 ml/min Claustrophobia Compressive atelectasis Congestive heart failure Diabetes mellitus Diabetes mellitus, with long-term current use of insulin Diverticulitis Elevated troponin End stage renal disease End-stage renal disease (ESRD) ESBL (extended spectrum beta-lactamase) producing bacteria infection ESRD (end stage renal disease) on dialysis DAILY (generalized anxiety disorder) Gastroparesis GERD (gastroesophageal reflux disease) Gram-negative bacteremia Hemodialysis catheter dysfunction HTN (hypertension) Hyperlipidemia Hypocalcemia due to chronic kidney disease Hypothyroidism Hypoxemia Light headedness Lumbar back pain Major depression, recurrent Mixed dyslipidemia Noncompliance DOROTEO on CPAP PAD (peripheral artery disease) Partial nontraumatic amputation of left foot (~06/2019) Peripheral vascular disease Peritonitis associated with peritoneal dialysis Phantom pain Pneumonia due to COVID-19 virus (~12/2020) Positive cardiac stress test Sleep apnea Suicidal ideation TIA (transient ischemic attack) Vitamin D deficiency Surgical History AV (arteriovenous fistula) (~10/2020) H/O hysterectomy with oophorectomy History of appendectomy History of cataract surgery History of heart artery stent PCI to LAD, done in [place], [place] 10/2018 ENRIQUE to mid LAD at [facility] 04/2020 History of hysterectomy History of left heart catheterization 04/2020 Findings: 1. There is severe coronary artery disease. 2. FFR of mid LAD was 0.76. 3. Severe OM 2 stenosis. However this is a small sized distal vessel. 4. Mid Left Anterior Descending Coronary Artery was treated with Balloon and Drug Eluting Stent History of right below knee amputation Peritoneal dialysis catheter in place Removed due to recurrent peritonitis S/P cholecystectomy S/P hemodialysis catheter insertion S/P PICC central line placement (~2019) Status post amputation of toe Family History Denies family history of CAD (coronary artery disease) Clotting disorder Dementia Bleeding disorder Social History Smoking and tobacco status: never smoked Alcohol intake: never Household members: spouse and family History of recent travel: No Female Reproductive History: Spontaneous abortions: No Vitals/I&O/Wt Last Vital Signs Temp 98.2 F 05/02/22 05:23 Pulse 74 05/02/22 09:40 Resp 16 05/02/22 07:00 BP 186/82 05/02/22 07:00 Pulse Ox 92 05/02/22 07:00 O2 Del Method 05/02/22 09:06 O2 Flow Rate 6 05/02/22 07:00 Weight last 48 hrs Weight 81.647 kg Physical Exam Narrative: General: No acute distress, AO x3 HEENT: PERRLA, pupils bilaterally equal and reactive, pallors not present Chest: Normal vesicular breath sounds, no added sounds, equal good air entry bilaterally CVS: S1-S2 regular, no murmurs, no tachycardia, no gallops, no rubs Abdomen: Soft, nontender, no organomegaly, bowel sounds present Neuro: No focal deficits, no facial deformity, AO x3, power 5/5 in all limbs Data 05/02/22 05:40 05/02/22 06:05 Other Labs: [facility] [address] XRay Report Signed Patient: Rizwana Herzog Unit #: [id number] : 1965 Age/Sex: 57 / F ADM Date: 05/02/22 Loc: ER Room/Bed: Attending Dr: Ordering Provider/Ordering MD: Carlos A Jeronimo MD Date of Service: 05/02/22 Procedure(s): XR chest 1V portable [id number] Accession Number(s): [id number] Report Number: [id number] PROCEDURE INFORMATION: Exam: XR Chest Exam date and time: 05/02/2022 6:51 AM Age: 57 years old Clinical indication: Shortness of breath; Additional info: SOB TECHNIQUE: Imaging protocol: Radiologic exam of the chest. Views: 1 view. COMPARISON: CR (CHEST, ) 04/25/2022 8:50 AM FINDINGS: Lungs: There are worsening bilateral infiltrates compared with 04/25/2022, findings could represent worsening bilateral basilar pneumonia although this may represent waxing and waning pulmonary edema. Pleural spaces: Hazy opacities in the lower hemithoraces could represent small bilateral pleural effusions. Heart/Mediastinum: Unremarkable. No cardiomegaly. Bones/joints: Unremarkable. XR/XR chest 1V portable [id number] IMPRESSION: 1. Worsening bilateral basilar infiltrates compared with 04/25/2022. Although these findings could represent worsening bilateral basilar pneumonia, waxing and waning pulmonary edema cannot be excluded. 2. Hazy opacities in the lower hemithoraces could represent small pleural effusions. A&P Assessment and plan (1) End-stage renal disease (ESRD): (2) Congestive heart failure: Plan Patient with significant past medical history as outlined above, presenting today with worsening shortness of breath after having missed dialysis which was scheduled today. Chest x-ray with bilateral infiltrates, most likely to be consistent with pulmonary edema from fluid overload. Nephrology has been consulted, will plan on hemodialysis. Continue other home meds incl ASA, statins, b blockers, lasix, hydralazine, insulin, imdur. I am unceratin why she is on linezolid, will attempt to clarify Attestations Medical Necessity Statement*: Anticipate greater than 2 midnight admission for hemodialysis, may need multiple sessions Coding Level of Care Code Acute Tile Machine Operator for Yarelig Fwd Diagnoses End-stage renal disease (ESRD) N18.6 Congestive heart failure I50.9
[2022-05-02] MEDS: ipratropium-albuterol 3 mL Neb INHALATION ×2 (13:04→14:59)
[2022-05-02 13:32] LABS: Troponin 5 6HR Delta -3.4 ng/L (0-12)
[2022-05-02 13:33] LABS: Troponin 5 6HR 113.6 ng/L (0-10)
[2022-05-02 13:51] LABS: Hepatitis B Surface Antigen Non-Reactive (Nonreactive); Hepatitis C Virus Antibody Non-Reactive (Nonreactive)
[2022-05-02 17:15] LABS: Glucose Point of Care 104 mg/dL (70-110)
[2022-05-02] MEDS: tizanidine 4 mg Tablet PO (17:15)
[2022-05-02] MEDS: cyclobenzaprine 10 mg Tablet PO (17:15)
[2022-05-02] MEDS: linezolid 600 mg Tablet PO (22:29)
[2022-05-02] MEDS: hyDRALAzine 50 mg Tablet 100 MG PO (22:30)
--- NOTE | 2022-05-02 22:30 | PC.NURSE ---
Pt arrived to unit from dialysis.
[2022-05-02] MEDS: atorvastatin 40 mg Tablet PO (22:31)
[2022-05-02] MEDS: FUROsemide 40 mg Tablet PO (22:32)
[2022-05-02] MEDS: carvedilol 12.5 mg Tablet PO (22:32)
[2022-05-02] MEDS: insulin glargine 100 units/1 mL 5 UNIT SUBCUT (22:32)
[2022-05-03] VITALS (8 sets, daily range): BP systolic 122–127; BP diastolic 64–67; PULSE 60–75; RESP 16–18; TEMP 36.3–36.6; O2SAT 93–96
[2022-05-03] MEDS: ipratropium-albuterol 3 mL Neb INHALATION ×3 (01:51→14:25)
[2022-05-03] MEDS: cyclobenzaprine 10 mg Tablet PO (02:15)
[2022-05-03 04:21] LABS: Basophils % 0.8 %; Eosinophils # 0.2 10^3/uL (0.0-0.8); Eosinophils % 3.8 %; Lymphocytes # 0.5 10^3/uL (0.8-4.8); Lymphocytes % 10.6 %; Mean Corpuscular HGB Conc 32.3 g/dL (30.0-36.0); Mean Corpuscular Hemoglobin 30.8 pg (28.0-34.0); Mean Corpuscular Volume 95.4 fl (81-99); Mean Platelet Volume 10.6 fL (7.4-10.4); Monocytes # 0.4 10^3/uL (0.2-0.9); Monocytes % 7.6 %; Neutrophils # 3.85 10^3/uL (1.8-7.7); Nucleated Red Blood Cells % 0 %; Platelet Count 171 10^3/cmm (130-400); Red Blood Count 3.25 10^6/uL (4.1-5.3); Red Cell Distribution Width 14.8 % (12.1-15.1)
[2022-05-03 04:43] LABS: Alanine Aminotransferase 8 U/L (0-33); Albumin Level 3.5 g/dL (3.5-5.2); Alkaline Phosphatase 60 U/L (35-105); Anion Gap 12.1 (5-19); Aspartate Amino Transferase 14 U/L (0-32); Blood Urea Nitrogen 23 mg/dL (6-20); Calcium 9.3 mg/dL (8.5-10.5); Carbon Dioxide 28 mmol/L (22-29); Chloride 91 mmol/L (98-107); Globulin 2.6 g/dL (1.3-4.6); Glomerular Filtration Rate 10.9 mL/min (90-130); Glucose 124 mg/dL (65-115); Osmolality Calculated 269 mOsm/kg (285-295); Potassium 4.1 mmol/L (3.5-5.1); Sodium 127 mmol/L (136-145); Total Bilirubin 0.6 mg/dL (0.15-1.2); Total Protein 6.1 g/dL (6.6-8.7)
[2022-05-03] MEDS: levothyroxine 150 mcg Tablet PO (05:31)
[2022-05-03 06:20] LABS: Glucose Point of Care 96 mg/dL (70-110)
[2022-05-03] MEDS: carvedilol 12.5 mg Tablet PO (09:01)
[2022-05-03] MEDS: hyDRALAzine 50 mg Tablet 100 MG PO (09:01)
[2022-05-03] MEDS: spironolactone 25 mg Tablet PO (09:01)
[2022-05-03] MEDS: escitalopram 10 mg Tablet 20 MG PO (09:01)
[2022-05-03] MEDS: insulin glargine 100 units/1 mL 5 UNIT SUBCUT (09:01)
[2022-05-03] MEDS: pantoprazole DR 40 mg Tablet PO (09:02)
[2022-05-03] MEDS: isosorbide mononitrate ER 60 mg Tablet PO (09:02)
[2022-05-03] MEDS: FUROsemide 40 mg Tablet PO (09:02)
[2022-05-03] MEDS: sertraline 50 mg Tablet PO (09:02)
[2022-05-03] MEDS: amlodipine 10 mg Tablet PO (09:02)
[2022-05-03] MEDS: aspirin 81 mg Chew Tablet PO (09:02)
[2022-05-03] MEDS: tizanidine 4 mg Tablet PO (09:42)
[2022-05-03] MEDS: linezolid 600 mg Tablet PO (09:43)
--- NOTE | 2022-05-03 16:28 | PM.DCS ---
Discharge Providers Date of Admission: 05/02/22 07:24 Date of Discharge: May 03, 2022 Attending Provider at Admission: Felicia Singh MD Attending Provider at Discharge: Felicia Singh MD Primary Care Provider: Jacob Sharp DO Diagnoses at Discharge Discharge Diagnosis (1) End-stage renal disease (ESRD): Status: Acute (2) Congestive heart failure: Status: Acute Reason for Visit Reason for Visit: Sob Hospital Course Hospital Course Rizwana Herzog is a 57 year old female e with a past medical history of CKD on dialysis, DOROTEO on CPAP, diastolic dysfunction, EF 50%, COPD,recently admitted 04/25 to 04/27 for NSTEMI on medical management.? Due to the holidays her dialysis schedule had been changed.? She was supposed to get dialysis today however prior to making it for outpatient dialysis she started to experience dyspnea and therefore presented to the emergency room. She underwent dialysis uneventfully on May 02, 2022. Her symptoms resolved after getting the dialysis. She is being discharged today in stable condition. Recommended to continue her dialysis schedule on Wednesday. Return to ER in case of worsening symptoms. Physical Exam Narrative: General: No acute distress, AO x3 HEENT: PERRLA, pupils bilaterally equal and reactive, pallors not present Chest: Normal vesicular breath sounds, no added sounds, equal good air entry bilaterally CVS: S1-S2 regular, no murmurs, no tachycardia, no gallops, no rubs Abdomen: Soft, nontender, no organomegaly, bowel sounds present Neuro: No focal deficits, no facial deformity, AO x3, power 5/5 in all limbs Discharge Data Studies Completed and Pending Completed Studies During Hospitalization Category Date Time Status XR chest 1V portable [id number] Stat Exams 05/02/22 05:31 Completed Pending at discharge Category Date Time Status ABG ONLY [Arterial Blood Gas W/O Coox] Stat Lab 05/02/22 06:36 Stop Req Radiology Impressions Chest X-Ray 05/02/22 05:31 IMPRESSION: 1. Worsening bilateral basilar infiltrates compared with 04/25/2022. Although these findings could represent worsening bilateral basilar pneumonia, waxing and waning pulmonary edema cannot be excluded. 2. Hazy opacities in the lower hemithoraces could represent small pleural effusions. Laboratory Results WBC 5.0 10^3/uL (4.0-10.0) 05/03/22 03:25 RBC 3.25 10^6/uL (4.1-5.3) L 05/03/22 03:25 Hgb 10.0 g/dL (11.5-15.3) L 05/03/22 03:25 Hct 31.0 % (37.0-47.0) L 05/03/22 03:25 MCV 95.4 fl (81-99) 05/03/22 03:25 MCH 30.8 pg (28.0-34.0) 05/03/22 03:25 MCHC 32.3 g/dL (30.0-36.0) 05/03/22 03:25 RDW 14.8 % (12.1-15.1) 05/03/22 03:25 Plt Count 171 10^3/cmm (130-400) 05/03/22 03:25 MPV 10.6 fL (7.4-10.4) H 05/03/22 03:25 Neut % (Auto) 77.0 % 05/03/22 03:25 Lymph % (Auto) 10.6 % 05/03/22 03:25 Wright % (Auto) 7.6 % 05/03/22 03:25 Eos % (Auto) 3.8 % 05/03/22 03:25 Baso % (Auto) 0.8 % 05/03/22 03:25 Neut # (Auto) 3.85 10^3/uL (1.8-7.7) 05/03/22 03:25 Lymph # (Auto) 0.5 10^3/uL (0.8-4.8) L 05/03/22 03:25 Wright # (Auto) 0.4 10^3/uL (0.2-0.9) 05/03/22 03:25 Eos # (Auto) 0.2 10^3/uL (0.0-0.8) 05/03/22 03:25 Baso # (Auto) 0.0 10^3/uL (0.0-0.1) 05/03/22 03:25 Nucleated RBC % (auto) 0 % 05/03/22 03:25 Nucleated RBCs # 0.0 /100WBC 05/03/22 03:25 PT 15.00 SECONDS (12.1-14.9) H 05/02/22 06:05 INR 1.14 (0.8-1.2) 05/02/22 06:05 Sodium 127 mmol/L (136-145) L 05/03/22 03:25 Potassium 4.1 mmol/L (3.5-5.1) 05/03/22 03:25 Chloride 91 mmol/L (98-107) L 05/03/22 03:25 Carbon Dioxide 28 mmol/L (22-29) 05/03/22 03:25 Anion Gap 12.1 (5-19) 05/03/22 03:25 BUN 23 mg/dL (6-20) H 05/03/22 03:25 Creatinine 4.2 mg/dL (0.5-0.9) H 05/03/22 03:25 GFR Calculation 10.9 mL/min (90-130) L 05/03/22 03:25 Glucose 124 mg/dL (65-115) H 05/03/22 03:25 POC Glucose 96 mg/dL (70-110) 05/03/22 06:14 Calculated Osmolality 269 mOsm/kg (285-295) L 05/03/22 03:25 Calcium 9.3 mg/dL (8.5-10.5) 05/03/22 03:25 Total Bilirubin 0.6 mg/dL (0.15-1.2) 05/03/22 03:25 AST 14 U/L (0-32) 05/03/22 03:25 ALT 8 U/L (0-33) 05/03/22 03:25 Alkaline Phosphatase 60 U/L (35-105) 05/03/22 03:25 Troponin T Baseline 117 ng/L (0-10) H* 05/02/22 06:05 Troponin T 120 Minute 117.9 ng/L (0-10) H 05/02/22 08:05 Delta Troponin T 0.9 ABS# (0-10) 05/02/22 08:05 Troponin T Hi Sens 6Hr 113.6 ng/L (0-10) H 05/02/22 12:48 Troponin T Hi Sens 6Hr Delta -3.4 ng/L (0-12) L 05/02/22 12:48 NT-Pro-B Natriuret Pep 28029 pg/mL (0-125) H 05/02/22 06:05 Total Protein 6.1 g/dL (6.6-8.7) L 05/03/22 03:25 Albumin 3.5 g/dL (3.5-5.2) 05/03/22 03:25 Globulin 2.6 g/dL (1.3-4.6) 05/03/22 03:25 Hep Bs Antigen Non-reactive (Nonreactive) 05/02/22 12:48 Hepatitis C Antibody Non-reactive (Nonreactive) 05/02/22 12:48 Influenza Type A Ag negative (Negative) 05/02/22 05:40 Influenza Type B Ag negative (Negative) 05/02/22 05:40 Vitals Last Vital Signs Temp 97.8 F 05/03/22 10:47 Pulse 60 05/03/22 15:29 Resp 16 05/03/22 15:29 BP 124/67 05/03/22 10:47 Pulse Ox 95 05/03/22 15:29 O2 Del Method 05/03/22 14:30 O2 Flow Rate 4 05/03/22 14:30 Discharge Plan Discharge Patient Disposition: Home Condition: Stable Prescriptions: Continued escitalopram oxalate 20 mg tablet 20 mg PO DAILY cyclobenzaprine 10 mg tablet 10 mg PO TID PRN (Reason: muscle spasm) Qty: 30 2RF tizanidine 4 mg capsule 4 mg PO Q6H PRN (Reason: muscle spasticity) Qty: 60 2RF Rx Instructions: do not exceed 3 doses per 24 hrs ketoconazole 2 % cream 1 applic topical DAILY Qty: 30 0RF clonazepam 0.25 mg tablet,disintegrating 0.25 mg PO BID PRN (Reason: Anxiety) Qty: 30 0RF pantoprazole 40 mg tablet,delayed release (DR/EC) 40 mg PO DAILY@08 Qty: 90 1RF (DME) pen needle, diabetic [ReliOn Pen [place]] 32 gauge x 5/32 needle See Rx Instructions .ROUTE .MEDSUPPLY Qty: 100 6RF Rx Instructions: use for insulin injections (DME) PROSTHETIC SUPPLIES See Rx Instructions .Route .MEDSUPPLY Qty: 1 0RF Rx Instructions: As directed levothyroxine [Euthyrox] 150 mcg tablet 150 mcg PO QAM Qty: 90 3RF atorvastatin 40 mg tablet 40 mg PO DAILY@20 Qty: 90 3RF amlodipine 10 mg tablet 10 mg PO DAILY Qty: 90 1RF aspirin 81 mg Tablet,Chewable 81 mg PO DAILY@08 Hold Instructions: Resume on 10/24/21. cholecalciferol (vitamin D3) [Vitamin D3] 25 mcg (1,000 unit) Tablet 25 mcg PO DAILY@08 omega [id number]-fish oil [Fish Oil] 300-1,000 mg Capsule,Delayed Release(Dr/Ec) 1 cap PO BID@ Glucosamine Chondroitin 550-30-1 mg Capsule 1 cap PO DAILY hydralazine 100 mg tablet 100 mg PO BID isosorbide mononitrate 60 mg tablet extended release 24 hr 60 mg PO DAILY ketorolac 0.5 % drops 1 drp ophthalmic (eye) BID Rx Instructions: right eye prednisolone acetate 1 % drops,suspension 1 drp ophthalmic (eye) QID Rx Instructions: left eye furosemide [Lasix] 40 mg Tablet 40 mg PO BID spironolactone 25 mg Tablet 25 mg PO DAILY nitroglycerin [Nitrostat] 0.4 mg Tablet, Sublingual 0.4 mg SUBLINGUAL Q5M PRN (Reason: Chest Pain) Rx Instructions: do not exceed 3 doses per episode albuterol sulfate 90 mcg/actuation Hfa Aerosol Inhaler 2 puff INHALATION Q4H PRN (Reason: Shortness Of Breath) cinacalcet 60 mg Tablet 60 mg PO DAILY Combivent Respimat 20-100 mcg/actuation Mist 1 puff INHALATION DAILY PRN (Reason: Shortness Of Breath) Rx Instructions: space evenly during waking hours linezolid [Zyvox] 600 mg tablet 600 mg PO BID 5 Days Qty: 10 0RF Dialyvite 100-1 mg tablet 1 tab PO DAILY insulin glargine [Lantus Solostar U-100 Insulin] 100 unit/mL (3 mL) insulin pen 5 unit SUBCUT BID@,20 Qty: 15 12RF sertraline 50 mg tablet 50 mg PO DAILY carvedilol 12.5 mg tablet 12.5 mg PO BID lactulose [Constulose] 10 gram/15 mL solution 10 g PO DAILY PRN (Reason: Constipation) Discharge Orders: Discharge Order (Routine); Ordered 05/03/22 Ordered By: Felicia Singh Referrals: Jacob Sharp DO [Primary Care Provider] - 4-7 days (Please call Wednesday to schedule hospital follow up appointment.) Patient Instructions: End Stage Kidney Disease (GEN), Hemodialysis (GEN), Opioid Safety Discharge Attestations Time Spent in Discharge Care*: less than 30 min Status at Discharge: Cognitive status at discharge: cognitively intact, Behavioral status at discharge: cooperative, Quality Metrics Clinical Quality Measures [ No reported AMI, CVA or VTE this stay] Coding Level of Care Code Acute [facility] note Diagnoses End-stage renal disease (ESRD) N18.6 Congestive heart failure I50.9
== END 2022-05-03 15:20 | disposition home or self-care (01) ==
LOC: ER 07:30 → MEDSURG 08:09
PROVIDERS: Emergency Medicine; Internal Medicine; Admitting Provider Student in an Organized Health Care Education/Training Program; Emergency Provider Family Medicine; PCP Family Medicine; Visit Provider Student in an Organized Health Care Education/Training Program
DX: N18.6 End stage renal disease (principal); G47.33 Obstructive sleep apnea (adult) (pediatric); J44.9 Chronic obstructive pulmonary disease, unspecified; Z79.82 Long term (current) use of aspirin; D63.1 Anemia in chronic kidney disease; I25.10 Atherosclerotic heart disease of native coronary artery without angina pectoris; E11.22 Type 2 diabetes mellitus with diabetic chronic kidney disease; I13.2 Hypertensive heart and chronic kidney disease with heart failure and with stage 5 chronic kidney disease, or end stage renal disease; I50.32 Chronic diastolic (congestive) heart failure; Z99.2 Dependence on renal dialysis; F41.9 Anxiety disorder, unspecified; F32.A Depression, unspecified; E03.9 Hypothyroidism, unspecified
CPT/HCPCS: 36415; 36416; 36600; 71045; 80053; 82803; 82962; 83880; 84484; 85025; 85610; 86803; 87340; 87804; 93005; 94640; 94660; 96372; 99285; G0378; J1815; Q3014

== ENCOUNTER → 2022-05-07 13:00 | Outpatient (BNVA) | payer MEDICARE, MEDICAID, SELFPAY | PROVIDERS: PCP Family Medicine; Visit Provider Physician Assistant | DX: S22.020A Wedge compression fracture of second thoracic vertebra, initial encounter for closed fracture (principal); W19.XXXA Unspecified fall, initial encounter; M48.07 Spinal stenosis, lumbosacral region; M41.34 Thoracogenic scoliosis, thoracic region | CPT/HCPCS: 72070; 72100; 99203 ==

== ENCOUNTER 2022-05-21 16:22 | Emergency (ER) | payer MEDICARE, MEDICAID, SELFPAY ==
[2022-05-21 16:47] VITALS: BP 153/74; PULSE 81; RESP 16; TEMP 37; O2SAT 91
--- NOTE | 2022-05-21 17:28 | USR_ITS ---
PROCEDURE INFORMATION: Exam: US Duplex Left Lower Extremity Veins, Limited Exam date and time: 05/21/2022 5:51 PM Age: 57 years old Clinical indication: Pain; Leg, lower; Left; Additional info: Pain, swelling, redness w/o injury TECHNIQUE: Imaging protocol: Real-time Duplex ultrasound of the Left Lower Extremity with 2-D anaya scale, color Doppler flow and spectral waveform analysis with image documentation. Limited exam focused on the left lower extremity veins. COMPARISON: foot LT wo/w con [id number] 08/31/2019 10:38 AM FINDINGS: Left deep veins: Unremarkable. The common femoral, femoral, proximal profunda femoral and popliteal veins are patent without thrombus. Normal Doppler waveforms. Normal compressibility and/or augmentation response. Left superficial veins: Unremarkable. Saphenofemoral junction is patent without thrombus. Soft tissues: Unremarkable. US/CV venous duplex [facility] [id number] IMPRESSION: No evidence of deep vein thrombosis.
--- NOTE | 2022-05-21 18:14 | XRR_ITS ---
PROCEDURE INFORMATION: Exam: XR Chest Exam date and time: 05/21/2022 6:28 PM Age: 57 years old Clinical indication: Shortness of breath; Additional info: HX chf with new le edema TECHNIQUE: Imaging protocol: Radiologic exam of the chest. Views: 1 view. COMPARISON: CR (CHEST, ) 05/02/2022 6:51 AM FINDINGS: Lungs: Increased interstitial lung markings at the mid and lower lungs. No consolidation. Pleural spaces: Small volume pleural effusions. No pneumothorax. Heart/Mediastinum: Cardiomegaly. Bones/joints: Unremarkable. XR/XR chest 1V [id number] IMPRESSION: Cardiomegaly with small volume pleural effusions and interstitial pulmonary edema.
--- NOTE | 2022-05-21 18:17 | ED_ITS ---
HPI - Extremity Problem General: Chief complaint: Extremity Problem,Nontraumatic Stated complaint: left leg swollen Time Seen by Provider: 05/21/22 17:33 Source: patient Mode of arrival: wheelchair Limitations: no limitations History of Present Illness: Patient presents to the emergency department today accompanied by her for evaluation treatment of left lower extremity swelling, redness, and pain. Patient denies any known injuries or traumas prior to onset of noticing the symptoms. Patient reports tenderness to this left lower extremity up to about the knee but denies any pain in her upper leg. Patient has a significant past medical history including CHF, end-stage renal disease with dialysis and diabetes. 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 I asked patient if she had a history of blood clots and she indicated it was the reason she had her right lower extremity amputated however, I do not find anything in her chart indicating any past medical history of blood clot and patient does not take prescription blood thinner at this time. BKA documented 2019. Patient states she is not having chest pains but has been short of breath for months. She states she has also had issues with pneumonia and upper respiratory infection since December. She denies fevers recently. Chart review shows patient was seen here in the emergency department on 04/25 complaining of chest pains. Patient was admitted with non-ST elevated AR and fluid overload. Patient receives dialysis Tuesdays, , and Saturdays. Patient states she did receive her dialysis today for approximately 3 hours and 15 minutes. She denies any episodes of dizziness or lightheadedness. No episodes of syncope. Patient states she felt a little nauseated but had no vomiting. Review of Systems General: Reports: 10 or more systems reviewed and unremarkable except in HPI and below Card: Reports: edema Resp: Reports: dyspnea (months) and non-productive cough Musc: Reports: extremity pain (LLE), muscle cramps and muscle weakness Skin/Breast: Reports: erythema (LLE) and skin swelling (LLE) PFS ED PFSH: Medical History Acute dyspnea Acute hyperkalemia Acute hyperkalemia Adjustment disorder with mixed disturbance of emotions and conduct Anemia in chronic kidney disease Anxiety Anxiety and depression BPPV (benign paroxysmal positional vertigo) CAD (coronary artery disease) Carotid stenosis 04/2020: Right < 50%, Left near 70% CHF exacerbation Chronic diastolic CHF (congestive heart failure) 12/2020 EF 55%, grade II/IV diastolic dysfunction Chronic kidney disease Chronic left sacroiliac joint pain CKD (chronic kidney disease) stage 5, GFR less than 15 ml/min Claustrophobia Compressive atelectasis Congestive heart failure Congestive heart failure Diabetes mellitus Diabetes mellitus, with long-term current use of insulin Diverticulitis Elevated troponin End stage renal disease End-stage renal disease (ESRD) ESBL (extended spectrum beta-lactamase) producing bacteria infection ESRD (end stage renal disease) on dialysis DAILY (generalized anxiety disorder) Gastroparesis GERD (gastroesophageal reflux disease) Gram-negative bacteremia Hemodialysis catheter dysfunction HTN (hypertension) Hyperlipidemia Hypocalcemia due to chronic kidney disease Hypothyroidism Hypoxemia Light headedness Lumbar back pain Major depression, recurrent Mixed dyslipidemia Noncompliance DOROTEO on CPAP PAD (peripheral artery disease) Partial nontraumatic amputation of left foot (~06/2019) Peripheral vascular disease Peritonitis associated with peritoneal dialysis Phantom pain Pneumonia due to COVID-19 virus (~12/2020) Positive cardiac stress test Sleep apnea Suicidal ideation TIA (transient ischemic attack) Vitamin D deficiency Surgical History AV (arteriovenous fistula) (~10/2020) H/O hysterectomy with oophorectomy History of appendectomy History of cataract surgery History of heart artery stent PCI to LAD, done in [place], [place] 10/2018 ENRIQUE to mid LAD at [facility] 04/2020 History of hysterectomy History of left heart catheterization 04/2020 Findings: 1. There is severe coronary artery disease. 2. FFR of mid LAD was 0.76. 3. Severe OM 2 stenosis. However this is a small sized distal vessel. 4. Mid Left Anterior Descending Coronary Artery was treated with Balloon and Drug Eluting Stent History of right below knee amputation Peritoneal dialysis catheter in place Removed due to recurrent peritonitis S/P cholecystectomy S/P hemodialysis catheter insertion S/P PICC central line placement (~2019) Status post amputation of toe Family History Denies family history of CAD (coronary artery disease) Clotting disorder Dementia Bleeding disorder Social History Smoking and tobacco status: never smoked Alcohol intake: never Household members: spouse and family History of recent travel: No Female Reproductive History: Spontaneous abortions: No Physical Exam Const: COMMON NORMALS: no acute distress, patient oriented x3 and alert HENMT: COMMON NORMALS: normocephalic, atraumatic, hearing grossly normal bilaterally and moist oral mucous membranes HEAD & SCALP: normocephalic and atraumatic Eye: COMMON NORMALS: Equal, round and reactive pupils present, EOMs intact bilaterally and conjunctivae normal CONJUNCTIVA: Yes conjunctivae normal PUPIL: Yes Equal, round and reactive pupils present Neck/C-Spine: COMMON NORMALS: no JVD Lymph: LYMPHATIC: no lymphadenopathy noted and No lymphedema Resp: COMMON NORMALS: normal respiratory effort, No retractions and No use of accessory muscles; negative for clear to auscultation bilaterally (diminished lung sounds) AUSCULTATION: not clear to auscultation bilaterally (diminished lung sounds) Cardio: COMMON NORMALS: no JVD, regular rate and regular rhythm RATE: regular rate RHYTHM: regular rhythm GI: COMMON NORMALS: Normal to inspection, nondistended, normoactive bowel sounds present Extremity: COMMON NORMALS: no joint enlargement; negative for no calf tenderness and negative for no pedal edema Neuro: COMMON NORMALS: patient oriented x3 SENSORIUM/ORIENTATION: Yes alert Skin: COMMON NORMALS: no rashes or lesions noted, no wounds, turgor normal and no petechiae GENERAL SKIN EXAM: no rashes or lesions noted and turgor normal Course Vital Signs: Vital signs: Vital Signs Temperature 98.6 F 05/21/22 16:47 Pulse Rate 81 05/21/22 16:47 Respiratory Rate 16 05/21/22 16:47 Blood Pressure 153/74 05/21/22 16:47 Pulse Oximetry 91 05/21/22 16:47 Oxygen Delivery Me thod 05/21/22 16:47 Oxygen Flow Rate 3 05/21/22 16:47 MDM - Extremity (Nontraumatic) Medical Decision Making Patient presented to the emergency department today for evaluation treatment of concerns of acute left lower extremity swelling. While it was nonpitting, it was edematous and, with her reports of pain-especially in the calf region, we did obtain a venous Doppler. Doppler was negative for signs of a DVT and we did proceed on with evaluation of an acute CHF exacerbation. Patient had dialysis today without any acute concerns. She reports months of feeling short of breath and states she has had multiple upper respiratory illnesses since the summer. Patient's chest x-ray continue to show bilateral lung congestion with ca rdiomegaly. Lab work showed consistent findings with CHF including a significantly elevated BNP and an elevated troponin-though both are somewhat baseline to what she has had in the past with acute flareups. Patient's electrolytes are well within normal limits. I did discuss the case throughout t he patient's evaluation here in the emergency department with Dr. Jeronimo. After the lab work came back, we did discuss an additional dose of Lasix here in the ER with continued monitoring at home. Encourage the patient to monitor her weight and for worsening edema of the extremity or any signs of shortness of breath. She is to follow-up with her primary care doctor next week for recheck. Differential Diagnosis Likely cellulitis, lower extremity edema (CHF exacerbation, lymphedema) and deep vein thrombosis of lower extremity Lab Data 05/21/22 19:07 05/21/22 19:07 Radiology Impressions Venous Duplex 05/21/22 17:28 IMPRESSION: No evidence of deep vein thrombosis. Chest X-Ray 05/21/22 18:14 IMPRESSION: Cardiomegaly with small volume pleural effusions and interstitial pulmonary edema. Laboratory Results WBC 3.9 10^3/uL (4.0-10.0) L 05/21/22 19:07 RBC 3.24 10^6/uL (4.1-5.3) L 05/21/22 19:07 Hgb 9.9 g/dL (11.5-15.3) L 05/21/22 19:07 Hct 31.4 % (37.0-47.0) L 05/21/22 19:07 MCV 96.9 fl (81-99) 05/21/22 19:07 MCH 30.6 pg (28.0-34.0) 05/21/22 19:07 MCHC 31.5 g/dL (30.0-36.0) 05/21/22 19:07 RDW 15.4 % (12.1-15.1) H 05/21/22 19:07 Plt Count 195 10^3/cmm (130-400) 05/21/22 19:07 MPV 10.4 fL (7.4-10.4) 05/21/22 19:07 Neut % (Auto) 65.4 % 05/21/22 19:07 Lymph % (Auto) 16.0 % 05/21/22 19:07 Lipscomb % (Auto) 12.1 % 05/21/22 19:07 Eos % (Auto) 5.4 % 05/21/22 19:07 Baso % (Auto) 0.8 % 05/21/22 19:07 Neut # (Auto) 2.54 10^3/uL (1.8-7.7) 05/21/22 19:07 Lymph # (Auto) 0.6 10^3/uL (0.8-4.8) L 05/21/22 19:07 Lipscomb # (Auto) 0.5 10^3/uL (0.2-0.9) 05/21/22 19:07 Eos # (Auto) 0.2 10^3/uL (0.0-0.8) 05/21/22 19:07 Baso # (Auto) 0.0 10^3/uL (0.0-0.1) 05/21/22 19:07 Nucleated RBC % (auto) 0 % 05/21/22 19:07 Nucleated RBCs # 0.0 /100WBC 05/21/22 19:07 Sodium 138 mmol/L (136-145) 05/21/22 19:07 Potassium 4.6 mmol/L (3.5-5.1) 05/21/22 19:07 Chloride 96 mmol/L (98-107) L 05/21/22 19:07 Carbon Dioxide 32 mmol/L (22-29) H 05/21/22 19:07 Anion Gap 14.6 (5-19) 05/21/22 19:07 BUN 23 mg/dL (6-20) H 05/21/22 19:07 Creatinine 4.5 mg/dL (0.5-0.9) H 05/21/22 19:07 GFR Calculation 10.0 mL/min (90-130) L 05/21/22 19:07 Glucose 84 mg/dL (65-115) 05/21/22 19:07 Calculated Osmolality 289 mOsm/kg (285-295) 05/21/22 19:07 Calcium 10.0 mg/dL (8.5-10.5) 05/21/22 19:07 Total Bilirubin 0.6 mg/dL (0.15-1.2) 05/21/22 19:07 AST 19 U/L (0-32) 05/21/22 19:07 ALT 9 U/L (0-33) 05/21/22 19:07 Alkaline Phosphatase 83 U/L (35-105) 05/21/22 19:07 Troponin T Gen 5 ng/L 195 ng/L (0-10) H* 05/21/22 19:07 NT-Pro-B Natriuret Pep 56815 pg/mL (0-125) H 05/21/22 19:07 Total Protein 6.9 g/dL (6.6-8.7) 05/21/22 19:07 Albumin 3.6 g/dL (3.5-5.2) 05/21/22 19:07 Globulin 3.3 g/dL (1.3-4.6) 05/21/22 19:07 EKG Data EKG 1: I personally reviewed and interpreted this EKG as follows: EKG interpretation date: 05/21/22 EKG interpretation time: 18:41 Interpretation: Patient's EKG shows a sinus rhythm with indications of old injury. No signs of any acute ST changes. Heart rate 76. Discharge Plan Discharge Patient Disposition: Home Clinical Impression: Lower extremity edema, Chronic diastolic CHF (congestive heart failure), End-stage renal disease needing dialysis Condition: Stable Prescriptions: No Action escitalopram oxalate 20 mg tablet 20 mg PO DAILY cyclobenzaprine 10 mg tablet 10 mg PO TID PRN (Reason: muscle spasm) Qty: 30 2RF tizanidine 4 mg capsule 4 mg PO Q6H PRN (Reason: muscle spasticity) Qty: 60 2RF Rx Instructions: do not exceed 3 doses per 24 hrs ketoconazole 2 % cream 1 applic topical DAILY Qty: 30 0RF pantoprazole 40 mg tablet,delayed release (DR/EC) 40 mg PO DAILY@08 Qty: 90 1RF (DME) pen needle, diabetic [ReliOn Pen [place]] 32 gauge x 5/32 needle See Rx Instructions .ROUTE .MEDSUPPLY Qty: 100 6RF Rx Instructions: use for insulin injections (DME) PROSTHETIC SUPPLIES See Rx Instructions .Route .MEDSUPPLY Qty: 1 0RF Rx Instructions: As directed levothyroxine [Euthyrox] 150 mcg tablet 150 mcg PO QAM Qty: 90 3RF atorvastatin 40 mg tablet 40 mg PO DAILY@20 Qty: 90 3RF amlodipine 10 mg tablet 10 mg PO DAILY Qty: 90 1RF clonazepam 0.25 mg tablet,disintegrating 0.25 mg PO BID PRN (Reason: Anxiety) Qty: 30 5RF aspirin 81 mg Tablet,Chewable 81 mg PO DAILY@08 Hold Instructions: Resume on 10/24/21. cholecalciferol (vitamin D3) [Vitamin D3] 25 mcg (1,000 unit) Tablet 25 mcg PO DAILY@08 omega 2-uqb-wuo-fish oil [Fish Oil] 300-1,000 mg Capsule,Delayed Release(Dr/Ec) 1 cap PO BID@08,20 Glucosamine Chondroitin 550-30-1 mg Capsule 1 cap PO DAILY hydralazine 100 mg tablet 100 mg PO BID isosorbide mononitrate 60 mg tablet extended release 24 hr 60 mg PO DAILY ketorolac 0.5 % drops 1 drp ophthalmic (eye) BID Rx Instructions: right eye prednisolone acetate 1 % drops,suspension 1 drp ophthalmic (eye) QID Rx Instructions: left eye furosemide [Lasix] 40 mg Tablet 40 mg PO BID spironolactone 25 mg Tablet 25 mg PO DAILY nitroglycerin [Nitrostat] 0.4 mg Tablet, Sublingual 0.4 mg SUBLINGUAL Q5M PRN (Reason: Chest Pain) Rx Instructions: do not exceed 3 doses per episode albuterol sulfate 90 mcg/actuation Hfa Aerosol Inhaler 2 puff INHALATION Q4H PRN (Reason: Shortness Of Breath) cinacalcet 60 mg Tablet 60 mg PO DAILY Combivent Respimat 20-100 mcg/actuation Mist 1 puff INHALATION DAILY PRN (Reason: Shortness Of Breath) Rx Instructions: space evenly during waking hours Dialyvite 100-1 mg tablet 1 tab PO DAILY insulin glargine [Lantus Solostar U-100 Insulin] 100 unit/mL (3 mL) insulin pen 5 unit SUBCUT BID@08,20 Qty: 15 12RF sertraline 50 mg tablet 50 mg PO DAILY carvedilol 12.5 mg tablet 12.5 mg PO BID lactulose [Constulose] 10 gram/15 mL solution 10 g PO DAILY PRN (Reason: Constipation) Discharge Orders: Discharge ED (Routine); Ordered 05/21/22 Ordered By: Bernadine Wells Referrals: Jacob Sharp, [Primary Care Provider] - Discharge Diet: As Directed Discharge Activity: Resume usual activity Patient Instructions: Leg Edema (ED), Opioid Safety, Pain Management Activity Restrictions/Additional Instructions: Your evaluation today here in the emergency department was able to rule out any type of blood clot. Lab work shows that your kidney function is at your typical baseline and your electrolytes are all within normal limits. You do show signs of a bump in your BNP which is associated with your chronic issue of CHF. I do believe you are fighting your dialysis and diuretic medication a little bit right now which is what is causing the additional fluid to the left lower extremity. We have provided you a dose of medication here in the emergency department to help try and get rid of the excess fluid which has developed recently. Continue taking your at home medications as prescribed. Follow-up with your primary care doctor next week for recheck. If you are able, monitor your weight at home. Watch for any sudden weight gain, worsening shortness of breath or worsening lower extremity swelling. Thank you! Coding Level of Care Code ED Systems Integration Analyst for Maris Fwd Exam Comprehensive
--- NOTE | 2022-05-21 18:28 | ECG_ITS ---
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 Measurements Intervals [employer] Rate: 76 P: -46 NM: 182 QRS: -49 QRSD: 91 T: 85 QT: 392 QTc: 442 Interpretive Statements SINUS RHYTHM LEFT AXIS DEVIATION [QRS AXIS < -30] POSSIBLE ANTERIOR MYOCARDIAL INFARCTION , OF INDETERMINATE AGE [30 ms Q WAVE IN V3/V4, OR R < 0.2 mV IN V4] Compared to ECG 05/02/2022 15:51:17 No significant changes Electronically Signed On 05-22-2022 13:47:38 PLUNKET NURSE by Dong Pitt M.D. [id number]
[2022-05-21 19:16] LABS: Basophils % 0.8 %; Eosinophils # 0.2 10^3/uL (0.0-0.8); Eosinophils % 5.4 %; Hematocrit 31.4 % (37.0-47.0); Hemoglobin 9.9 g/dL (11.5-15.3); Lymphocytes # 0.6 10^3/uL (0.8-4.8); Mean Corpuscular HGB Conc 31.5 g/dL (30.0-36.0); Mean Corpuscular Hemoglobin 30.6 pg (28.0-34.0); Mean Corpuscular Volume 96.9 fl (81-99); Mean Platelet Volume 10.4 fL (7.4-10.4); Monocytes # 0.5 10^3/uL (0.2-0.9); Monocytes % 12.1 %; Neutrophils # 2.54 10^3/uL (1.8-7.7); Neutrophils % 65.4 %; Nucleated Red Blood Cells % 0 %; Platelet Count 195 10^3/cmm (130-400); Red Blood Count 3.24 10^6/uL (4.1-5.3); Red Cell Distribution Width 15.4 % (12.1-15.1); White Blood Count 3.9 10^3/uL (4.0-10.0)
[2022-05-21 19:45] LABS: Alanine Aminotransferase 9 U/L (0-33); Albumin Level 3.6 g/dL (3.5-5.2); Alkaline Phosphatase 83 U/L (35-105); Anion Gap 14.6 (5-19); Aspartate Amino Transferase 19 U/L (0-32); Blood Urea Nitrogen 23 mg/dL (6-20); Carbon Dioxide 32 mmol/L (22-29); Chloride 96 mmol/L (98-107); Globulin 3.3 g/dL (1.3-4.6); Glucose 84 mg/dL (65-115); Osmolality Calculated 289 mOsm/kg (285-295); Potassium 4.6 mmol/L (3.5-5.1); Sodium 138 mmol/L (136-145); Total Bilirubin 0.6 mg/dL (0.15-1.2); Total Protein 6.9 g/dL (6.6-8.7)
[2022-05-21 19:49] LABS: Troponin T (5th) Once 195 ng/L (0-10)
[2022-05-21] MEDS: FUROsemide 40 mg Tablet PO (21:14)
[2022-05-21 21:21] VITALS: BP 144/81; PULSE 80; RESP 20; O2SAT 92
== END 2022-05-21 21:22 | disposition home or self-care (01) ==
PROVIDERS: Emergency Provider Physician Assistant; PCP Family Medicine
DX: I13.2 Hypertensive heart and chronic kidney disease with heart failure and with stage 5 chronic kidney disease, or end stage renal disease (principal); E11.22 Type 2 diabetes mellitus with diabetic chronic kidney disease; N18.6 End stage renal disease; I50.32 Chronic diastolic (congestive) heart failure; I25.10 Atherosclerotic heart disease of native coronary artery without angina pectoris; E78.2 Mixed hyperlipidemia; Z86.73 Personal history of transient ischemic attack (TIA), and cerebral infarction without residual deficits; Z89.511 Acquired absence of right leg below knee
CPT/HCPCS: 36415; 71045; 80053; 83880; 84484; 85025; 93005; 93971; 99285

== ENCOUNTER 2022-05-25 11:55 | Emergency (ER) | payer MEDICARE, MEDICAID, SELFPAY ==
[2022-05-25] VITALS (7 sets, daily range): BP systolic 169–181; BP diastolic 68–89; PULSE 74–80; RESP 12–27; TEMP 37.1; O2SAT 92–100
--- NOTE | 2022-05-25 12:16 | XR_ITS ---
WS: [id number] Exam: XR chest 1V portable [id number] Date/Time of Exam: 05/25/2022 12:23 PM Reason For Exam: sob Comparison 05/21/2022. There is infiltrate in the middle and lower lobes the right lung with atelectatic change. Moderate-si zed right basal pleural effusion noted. Small left pleural effusion. Areas of plaque atelectasis in t he left lower lung zone. Mild cardiac enlargement unchanged. No pneumothorax. Bony structures are int act. XR/XR chest 1V portable [id number] IMPRESSION: 1. Infiltrate and atelectasis in the middle and lower lobes of the right lung s howing little change since prior study. Moderate size right basal pleural effus ion. 2. Mild cardiac enlargement unchanged. 3. Areas of plaque atelectasis in the left lower lung zone and trace left basal pleural effusion.
--- NOTE | 2022-05-25 12:16 | ECG_ITS ---
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 Measurements Intervals [facility] Rate: 74 P: 0 TN: 0 QRS: -53 QRSD: 86 T: 85 QT: 379 QTc: 422 Interpretive Statements Sinus rhythm LEFT AXIS DEVIATION [QRS AXIS < -30] MINIMAL VOLTAGE CRITERIA FOR LVH, CONSIDER NORMAL VARIANT [MEETS CRITERIA IN ONE OF: R(aVL), S(V1), R(V5), R(V5/V6)+S(V1)] POSSIBLE ANTERIOR MYOCARDIAL INFARCTION , OF INDETERMINATE AGE [30 ms Q WAVE IN V3/V4, OR R < 0.2 mV IN V4] Compared to ECG 05/21/2022 18:41:36 Myocardial infarct finding still present Electronically Signed On 05-25-2022 19:47:16 THERAPY ASSISTANT by Dong Pitt M.D. [id number]
--- NOTE | 2022-05-25 12:19 | ED_ITS ---
HPI - Chest Pain General: Chief Complaint: Chest Pain Stated Complaint: SOB/ CHEST DISCOMFORT Time Seen by Provider: 05/25/22 11:59 History of Present Illness: Patient comes in with multiple concerns including midsternal chest pain that started earlier today which she described as pre ssure, lasted for about an hour, no radiation. She is also concerned about some shortness of breath and dysuria. Patient is a history of end-stage renal disease and is on dialysis, but still does make urine. States that for the last month she has been less active and mostly chair and bedbound. She states she is on 2 L of supplemental oxygen via nasal cannula chronically. Associated symptoms: Reports dyspnea and vomiting; Deny abdominal pain, fever(s), nausea or palpitations Review of Systems Const: Denies: fever(s) or body aches Eyes: Denies: change in vision or blurry vision ENMT: Denies: throat pain or odynophagia Card: Reports: chest pain; Denies: palpitations Resp: Reports: dyspnea; Denies: productive cough GI: Reports: vomiting; Denies: abdominal pain or nausea : Reports: dysuria; Denies: flank pain Musc: Reports: back pain; Denies: neck pain Skin/Breast: Denies: rash or pruritus Neuro: Denies: headache(s) or numbness in extremities Psych: Reports: anxiety and change in appetite Endo: Denies: polyuria or excessive sweating PFSH ED PFSH: Medical History Acute dyspnea Acute hyperkalemia Acute hyperkalemia Adjustment disorder with mixed disturbance of emotions and conduct Anemia in chronic kidney disease Anxiety Anxiety and depression BPPV (benign paroxysmal positional vertigo) CAD (coronary artery disease) Carotid stenosis 04/2020: Right < 50%, Left near 70% CHF exacerbation Chronic diastolic CHF (congestive heart failure) 12/2020 EF 55%, grade II/IV diastolic dysfunction Chronic kidney disease Chronic left sacroiliac joint pain CKD (chronic kidney disease) stage 5, GFR less than 15 ml/min Claustrophobia Compressive atelectasis Congestive heart failure Congestive heart failure Diabetes mellitus Diabetes mellitus, with long-term current use of insulin Diverticulitis Elevated troponin End stage renal disease End-stage renal disease (ESRD) ESBL (extended spectrum beta-lactamase) producing bacteria infection ESRD (end stage renal disease) on dialysis DAILY (generalized anxiety disorder) Gastroparesis GERD (gastroesophageal reflux disease) Gram-negative bacteremia Hemodialysis catheter dysfunction HTN (hypertension) Hyperlipidemia Hypocalcemia due to chronic kidney disease Hypothyroidism Hypoxemia Light headedness Lumbar back pain Major depression, recurrent Mixed dyslipidemia Noncompliance DOROTEO on CPAP PAD (peripheral artery disease) Partial nontraumatic amputation of left foot (~06/2019) Peripheral vascular disease Peritonitis associated with peritoneal dialysis Phantom pain Pneumonia due to COVID-19 virus (~12/2020) Positive cardiac stress test Sleep apnea Suicidal ideation TIA (transient ischemic attack) Vitamin D deficiency Surgical History AV (arteriovenous fistula) (~10/2020) H/O hysterectomy with oophorectomy History of appendectomy History of cataract surgery History of heart artery stent PCI to LAD, done in [place], [place] 10/2018 ENRIQUE to mid LAD at [facility] 04/2020 History of hysterectomy History of left heart catheterization 04/2020 Findings: 1. There is severe coronary artery disease. 2. FFR of mid LAD was 0.76. 3. Severe OM 2 stenosis. However this is a small sized distal vessel. 4. Mid Left Anterior Descending Coronary Artery was treated with Balloon and Drug Eluting Stent History of right below knee amputation Peritoneal dialysis catheter in place Removed due to recurrent peritonitis S/P cholecystectomy S/P hemodialysis catheter insertion S/P PICC central line placement (~2019) Status post amputation of toe Family History Denies family history of CAD (coronary artery disease) Clotting disorder Dementia Bleeding disorder Social History Smoking and tobacco status: never smoked Alcohol intake: never Household members: spouse and family History of recent travel: No Female Reproductive History: Spontaneous abortions: No Physical Exam Const: COMMON NORMALS: no acute distress, patient oriented x3, healthy appearing and alert HENMT: COMMON NORMALS: normocephalic and atraumatic HEAD & SCALP: normocephalic and atraumatic Eye: COMMON NORMALS: Equal, round and reactive pupils present and EOMs intact bilaterally PUPIL: Yes Equal, round and reactive pupils present Neck/C-Spine: COMMON NORMALS: full ROM and supple Resp: COMMON NORMALS: normal respiratory effort, No retractions and No use of accessory muscles Cardio: COMMON NORMALS: regular rate and regular rhythm RATE: regular rate RHYTHM: regular rhythm GI: COMMON NORMALS: Normal to inspection, nondistended, normoactive bowel sounds present, Soft to palpation and non-tender PALPATION: Yes Soft to palpation Extremity: COMMON NORMALS: full ROM OTHER: Right BKA, left upper extremity dialysis fistula, multiple superficial healing lacerations and burn prince to the bottom of her left foot with redness and swelling that is hot to touch of her left foot Neuro: COMMON NORMALS: patient oriented x3 SENSORIUM/ORIENTATION: Yes alert Psych: COMMON NORMALS: mental status grossly normal and cooperative Skin: COMMON NORMALS: no rashes or lesions noted and no wounds GENERAL SKIN EXAM: no rashes or lesions noted Course Vital Signs: Vital signs: Vital Signs Temperature 98.7 F 05/25/22 12:01 Pulse Rate 80 05/25/22 14:45 Respiratory Rate 12 05/25/22 13:45 Blood Pressure 169/83 05/25/22 14:45 Pulse Oximetry 97 05/25/22 14:45 Oxygen Delivery Me thod 05/25/22 14:45 Oxygen Flow Rate 2 05/25/22 14:45 MDM - Chest Pain Medical Decision Making Patient comes in with multiple concerns including midsternal chest pain that started earlier today which she described as pressure, lasted for about an hour, no radiation. She is also concerned about some shortness of breath and dysuria. Patient is a history of end-stage renal disease and is on dialysis, but still does make urine. States that for the last month she has been less active and mostly chair and bedbound. She states she is on 2 L of supplemental oxygen via nasal cannula chronically. On physical exam she has a right BKA, a dialysis fistula in her left upper arm, lungs are clear to auscultation. Will check labs, EKG, x-ray, and reassess. Lab Data 05/25/22 12:14 05/25/22 12:14 Radiology Impressions Chest X-Ray 05/25/22 12:16 IMPRESSION: 1. Infiltrate and atelectasis in the middle and lower lobes of the right lung showing little change since prior study. Moderate size right basal pleural effusion. 2. Mild cardiac enlargement unchanged. 3. Areas of plaque atelectasis in the left lower lung zone and trace left basal pleural effusion. Laboratory Results WBC 6.8 10^3/uL (4.0-10.0) 05/25/22 12:14 RBC 3.22 10^6/uL (4.1-5.3) L 05/25/22 12:14 Hgb 10.1 g/dL (11.5-15.3) L 05/25/22 12:14 Hct 31.5 % (37.0-47.0) L 05/25/22 12:14 MCV 97.8 fl (81-99) 05/25/22 12:14 MCH 31.4 pg (28.0-34.0) 05/25/22 12:14 MCHC 32.1 g/dL (30.0-36.0) 05/25/22 12:14 RDW 16.1 % (12.1-15.1) H 05/25/22 12:14 Plt Count 267 10^3/cmm (130-400) 05/25/22 12:14 MPV 10.9 fL (7.4-10.4) H 05/25/22 12:14 Neut % (Auto) 81.1 % 05/25/22 12:14 Lymph % (Auto) 8.6 % 05/25/22 12:14 [place] % (Auto) 7.2 % 05/25/22 12:14 Eos % (Auto) 2.2 % 05/25/22 12:14 Baso % (Auto) 0.6 % 05/25/22 12:14 Neut # (Auto) 5.49 10^3/uL (1.8-7.7) 05/25/22 12:14 Lymph # (Auto) 0.6 10^3/uL (0.8-4.8) L 05/25/22 12:14 [place] # (Auto) 0.5 10^3/uL (0.2-0.9) 05/25/22 12:14 Eos # (Auto) 0.2 10^3/uL (0.0-0.8) 05/25/22 12:14 Baso # (Auto) 0.0 10^3/uL (0.0-0.1) 05/25/22 12:14 Nucleated RBC % (auto) 0 % 05/25/22 12:14 Nucleated RBCs # 0.0 /100WBC 05/25/22 12:14 Sodium 136 mmol/L (136-145) 05/25/22 12:14 Potassium 5.2 mmol/L (3.5-5.1) H 05/25/22 12:14 Chloride 98 mmol/L (98-107) 05/25/22 12:14 Carbon Dioxide 22 mmol/L (22-29) 05/25/22 12:14 Anion Gap 21.2 (5-19) H 05/25/22 12:14 BUN 36 mg/dL (6-20) H 05/25/22 12:14 Creatinine 5.9 mg/dL (0.5-0.9) H* 05/25/22 12:14 GFR Calculation 7.3 mL/min (90-130) L 05/25/22 12:14 Glucose 95 mg/dL (65-115) 05/25/22 12:14 Calculated Osmolality 290 mOsm/kg (285-295) 05/25/22 12:14 Calcium 10.7 mg/dL (8.5-10.5) H 05/25/22 12:14 Total Bilirubin 0.6 mg/dL (0.15-1.2) 05/25/22 12:14 AST 18 U/L (0-32) 05/25/22 12:14 ALT 11 U/L (0-33) 05/25/22 12:14 Alkaline Phosphatase 81 U/L (35-105) 05/25/22 12:14 Troponin T Baseline 157 ng/L (0-10) H* 05/25/22 12:14 Total Protein 6.9 g/dL (6.6-8.7) 05/25/22 12:14 Albumin 4.0 g/dL (3.5-5.2) 05/25/22 12:14 Globulin 2.9 g/dL (1.3-4.6) 05/25/22 12:14 Urine Color Yellow (Yellow) 05/25/22 13:15 Urine Appearance Clear (CLEAR) 05/25/22 13:15 Urine pH 9 (5-7) H 05/25/22 13:15 Ur Specific [place] 1.015 (1.005-1.030) 05/25/22 13:15 Urine Protein 3+ (Negative) H 05/25/22 13:15 Urine Glucose (UA) 2+ (Normal) H 05/25/22 13:15 Urine Ketones 1+ (Negative) H 05/25/22 13:15 Urine Blood Neg (Negative) 05/25/22 13:15 Urine Nitrate Negative (Negative) 05/25/22 13:15 Urine Bilirubin Neg (Negative) 05/25/22 13:15 Prot Sulfosalicylic Acd Positive (Negative) 05/25/22 13:15 Urine Urobilinogen Norm mg/dL (Negative) 05/25/22 13:15 Ur Leukocyte Esterase Negative (Negative) 05/25/22 13:15 Urine RBC None /hpf (0-2) 05/25/22 13:15 Urine WBC 5-10 /hpf (0-5) H 05/25/22 13:15 Ur Squamous Epith Cells 0-4 /hpf (0-5) H 05/25/22 13:15 Amorphous Sediment Not Reportable 05/25/22 13:15 Urine Bacteria Trace /hpf (NONE) 05/25/22 13:15 Discharge Plan Discharge Patient Disposition: Home Clinical Impression: Cellulitis of foot Condition: Stable Prescriptions: New cephalexin 500 mg capsule 500 mg PO Q6H 10 Days Qty: 40 0RF No Action tizanidine 4 mg capsule 4 mg PO Q6H PRN (Reason: muscle spasticity) Qty: 60 2RF Rx Instructions: do not exceed 3 doses per 24 hrs (DME) pen needle, diabetic [ReliOn Pen [place]] 32 gauge x 5/32 needle See Rx Instructions .ROUTE .MEDSUPPLY Qty: 100 6RF Rx Instructions: use for insulin injections (DME) PROSTHETIC SUPPLIES See Rx Instructions .Route .MEDSUPPLY Qty: 1 0RF Rx Instructions: As directed levothyroxine [Euthyrox] 150 mcg tablet 150 mcg PO QAM Qty: 90 3RF atorvastatin 40 mg tablet 40 mg PO DAILY@20 Qty: 90 3RF clonazepam 0.25 mg tablet,disintegrating 0.25 mg PO BID PRN (Reason: Anxiety) Qty: 30 5RF aspirin 81 mg Tablet,Chewable 81 mg PO DAILY@08 Hold Instructions: Resume on 10/24/21. cholecalciferol (vitamin D3) [Vitamin D3] 25 mcg (1,000 unit) Tablet 25 mcg PO BEDTIME omega 1-cdh-saf-fish oil [Fish Oil] 300-1,000 mg Capsule,Delayed Release(Dr/Ec) 1 cap PO BID furosemide [Lasix] 40 mg Tablet 40 mg PO BID spironolactone 25 mg Tablet 25 mg PO DAILY nitroglycerin [Nitrostat] 0.4 mg Tablet, Sublingual 0.4 mg SUBLINGUAL Q5M PRN (Reason: Chest Pain) Rx Instructions: do not exceed 3 doses per episode albuterol sulfate 90 mcg/actuation Hfa Aerosol Inhaler 2 puff INHALATION Q4H PRN (Reason: Shortness Of Breath) cinacalcet 60 mg Tablet 60 mg PO QAM Combivent Respimat 20-100 mcg/actuation Mist 1 puff INHALATION DAILY PRN (Reason: Shortness Of Breath) Rx Instructions: space evenly during waking hours Dialyvite 100-1 mg tablet 1 tab PO DAILY lactulose [Constulose] 10 gram/15 mL solution 10 g PO DAILY PRN (Reason: Constipation) hydralazine 50 mg tablet 50 mg PO BID RenaPlex-D 800 mcg-12.5 mg -2,000 unit tablet 1 tab PO QPM amlodipine 10 mg tablet 10 mg PO QAM Pepcid AC 20 mg Tablet 20 mg PO QAM Durezol 0.05 % drops 1 drp ophthalmic (eye) BID Rx Instructions: right eye Lantus Solostar U-100 Insulin 100 unit/mL (3 mL) insulin pen 5 unit SUBCUT BID PRN (Reason: blood sugar) Discharge Orders: Discharge ED (Routine); Ordered 05/25/22 Ordered By: Patrice Puentes Referrals: Jacob Sharp DO [Primary Care Provider] - Patient Instructions: Cellulitis Coding Level of Care Code ED Plastic Tubing Insulation Supervisor for Chg Fwd Exam Comprehensive
[2022-05-25 12:31] LABS: Basophils % 0.6 %; Eosinophils # 0.2 10^3/uL (0.0-0.8); Eosinophils % 2.2 %; Hematocrit 31.5 % (37.0-47.0); Hemoglobin 10.1 g/dL (11.5-15.3); Lymphocytes # 0.6 10^3/uL (0.8-4.8); Lymphocytes % 8.6 %; Mean Corpuscular HGB Conc 32.1 g/dL (30.0-36.0); Mean Corpuscular Hemoglobin 31.4 pg (28.0-34.0); Mean Corpuscular Volume 97.8 fl (81-99); Mean Platelet Volume 10.9 fL (7.4-10.4); Monocytes # 0.5 10^3/uL (0.2-0.9); Monocytes % 7.2 %; Neutrophils # 5.49 10^3/uL (1.8-7.7); Neutrophils % 81.1 %; Nucleated Red Blood Cells % 0 %; Platelet Count 267 10^3/cmm (130-400); Red Blood Count 3.22 10^6/uL (4.1-5.3); Red Cell Distribution Width 16.1 % (12.1-15.1); White Blood Count 6.8 10^3/uL (4.0-10.0)
[2022-05-25 12:50] LABS: Alanine Aminotransferase 11 U/L (0-33); Alkaline Phosphatase 81 U/L (35-105); Aspartate Amino Transferase 18 U/L (0-32); Blood Urea Nitrogen 36 mg/dL (6-20); Calcium 10.7 mg/dL (8.5-10.5); Carbon Dioxide 22 mmol/L (22-29); Chloride 98 mmol/L (98-107); Globulin 2.9 g/dL (1.3-4.6); Glomerular Filtration Rate 7.3 mL/min (90-130); Glucose 95 mg/dL (65-115); Osmolality Calculated 290 mOsm/kg (285-295); Sodium 136 mmol/L (136-145); Total Bilirubin 0.6 mg/dL (0.15-1.2); Total Protein 6.9 g/dL (6.6-8.7)
[2022-05-25 12:53] LABS: Anion Gap 21.2 (5-19); Potassium 5.2 mmol/L (3.5-5.1); Troponin(5th) Baseline 157 ng/L (0-10)
[2022-05-25] MEDS: hyDROXYzine 25 mg Capsule PO (13:20)
--- NOTE | 2022-05-25 13:37 | PC.PHAR ---
Addendum entered by Doris Oshea 05/25/22 13:50: pt states she hasnt used her lantus solostar for a month states blood sugar has been running low Original Note: pt states she takes care of her own medications-pt states her medications are in a mess pt states she hasnt taken some of her medications for over a month pt states she cant get refills on carvedilol 12.5mg bid filled 03/09/22 30d/s-flexeril 10mg tid prn-lexapro 20mg daily-isosorbide mono er 60mg daily-protonix 40mg daily-prednisolone 1% 1 drop left eye qid-zoloft 50mg daily states not had for over a month-
[2022-05-25 13:54] LABS: Add Urine Microscopic? YES; Bilirubin Urine Neg (Negative); Blood Urine Neg (Negative); Glucose Urine UA 2+ (Normal); Ketones Urine 1+ (Negative); Leukocyte Esterase Urine Negative (Negative); Nitrate Urine Negative (Negative); Protein Urine 3+ (Negative); Specific Gravity, Urine 1.015 (1.005-1.030); Sulfosalicylic Acid Urine Positive (Negative); Urine Appearance Clear (CLEAR); Urine Color Yellow (Yellow); Urobilinogen Urine Norm (Negative); pH Urine 9 (5-7)
[2022-05-25 13:55] LABS: Add Urine Culture? No; Bacteria Urine TRACE /hpf; Squamous Epithelial Cell Urine 0-4 /hpf (0-5)
--- NOTE | 2022-05-25 14:31 | PC.NURSE ---
Did not give Ativan because pt stated she was no longer feeling anxious. MD notified
[2022-05-25] MEDS: cephALEXin 500 mg Capsule PO (14:52)
[2022-05-25 14:53] LABS: Troponin 5 2HR 145.5 ng/L (0-10); Troponin 5 2HR Delta -11.5 ABS# (0-10)
== END 2022-05-25 15:05 | disposition home or self-care (01) ==
PROVIDERS: Emergency Provider Emergency Medicine; PCP Family Medicine
DX: L03.116 Cellulitis of left lower limb (principal); I10 Essential (primary) hypertension; I25.10 Atherosclerotic heart disease of native coronary artery without angina pectoris; E11.9 Type 2 diabetes mellitus without complications
CPT/HCPCS: 36415; 51701; 71045; 80053; 81001; 84484; 85025; 93005; 99285

== ENCOUNTER 2022-06-08 16:38 | Inpatient (IN) | payer MEDICARE, MEDICAID, SELFPAY ==
[2022-06-08 16:50] VITALS: PULSE 65; RESP 14; TEMP 36.9; O2SAT 95; BMI 29.7
--- NOTE | 2022-06-08 17:05 | XRR_ITS ---
PROCEDURE INFORMATION: Exam: XR Chest Exam date and time: 06/08/2022 5:19 PM Age: 57 years old Clinical indication: Shortness of breath; Additional info: SOB TECHNIQUE: Imaging protocol: Radiologic exam of the chest. Views: 2 views. COMPARISON: CR XR chest 1V portable [id number] 05/25/2022 12:31 PM FINDINGS: Lungs: There is atelectasis of portions of the right lower lobe. Superimposed pneumonia not excluded. There is mild subsegmental atelectasis at the left lung base not significantly changed. Pleural spaces: There is a moderate right pleural effusion. Heart/Mediastinum: The heart is moderately enlarged. Bones/joints: Unremarkable. XR/XR chest 2V* [id number] IMPRESSION: 1. Right pleural effusion not significantly changed. 2. Right lower lobe infiltrate and atelectasis not significantly changed. 3. Mild left basilar atelectasis.
[2022-06-08 17:25] VITALS: PULSE 75; RESP 16; O2SAT 94
[2022-06-08] MEDS: albuterol 2.5 mg/3 mL Neb INHALATION (17:28)
[2022-06-08] MEDS: ipratropium 0.5 mg/2.5 mL Neb INHALATION (17:28)
[2022-06-08 17:31] VITALS: PULSE 70
--- NOTE | 2022-06-08 17:36 | W.ED.PSYCHS ---
Documented by User: Moises Gagnon DO 06/08/22 22:20 HPI - Psych General: Chief Complaint: Psychiatric Symptoms Stated Complaint: SI Time Seen by Provider: 06/08/22 16:54 History of Present Illness: 57-year-old female with chronic medical conditions presents because she tired of living and she just does not want to keep going anymore. Patient is on chronic respiratory failure on home oxygen. She is a dialysis patient. She reports she has had some mild increase shortness of breath for 3 days. She has other multiple comorbidities and is just tired of dealing with them. She does not have a plan. She stated that she felt like she would just quit going to dialysis and it would eventually take care of itself. she just feels hopeless. Associated symptoms: Reports depression and suicidal ideation Review of Systems Const: Reports: malaise; Denies: fever(s) or chills Eyes: Denies: change in vision or eye discomfort ENMT: Denies: throat pain Card: Denies: chest pain or palpitations Resp: Reports: dyspnea; Denies: productive cough GI: Denies: abdominal pain, nausea or vomiting Skin/Breast: Denies: rash Neuro: Denies: headache(s) or dizziness Psych: Reports: depression, hopelessness and suicidal ideation PFSH ED PFSH: Medical History Acute dyspnea Acute hyperkalemia Acute hyperkalemia Adjustment disorder with mixed disturbance of emotions and conduct Anemia in chronic kidney disease Anxiety Anxiety and depression BPPV (benign paroxysmal positional vertigo) CAD (coronary artery disease) Carotid stenosis 04/2020: Right < 50%, Left near 70% CHF exacerbation Chronic diastolic CHF (congestive heart failure) 12/2020 EF 55%, grade II/IV diastolic dysfunction Chronic kidney disease Chronic left sacroiliac joint pain CKD (chronic kidney disease) stage 5, GFR less than 15 ml/min Claustrophobia Compressive atelectasis Congestive heart failure Congestive heart failure Diabetes mellitus Diabetes mellitus, with long-term current use of insulin Diverticulitis Elevated troponin End stage renal disease End-stage renal disease (ESRD) ESBL (extended spectrum beta-lactamase) producing bacteria infection ESRD (end stage renal disease) on dialysis DAILY (generalized anxiety disorder) Gastroparesis GERD (gastroesophageal reflux disease) Gram-negative bacteremia Hemodialysis catheter dysfunction HTN (hypertension) Hyperlipidemia Hypocalcemia due to chronic kidney disease Hypothyroidism Hypoxemia Light headedness Lumbar back pain Major depression, recurrent Mixed dyslipidemia Noncompliance DOROTEO on CPAP PAD (peripheral artery disease) Partial nontraumatic amputation of left foot (~06/2019) Peripheral vascular disease Peritonitis associated with peritoneal dialysis Phantom pain Pneumonia due to COVID-19 virus (~12/2020) Positive cardiac stress test Sleep apnea Suicidal ideation TIA (transient ischemic attack) Vitamin D deficiency Surgical History AV (arteriovenous fistula) (~10/2020) H/O hysterectomy with oophorectomy History of appendectomy History of cataract surgery History of heart artery stent PCI to LAD, done in [place], [place] 10/2018 ENRIQUE to mid LAD at [facility] 04/2020 History of hysterectomy History of left heart catheterization 04/2020 Findings: 1. There is severe coronary artery disease. 2. FFR of mid LAD was 0.76. 3. Severe OM 2 stenosis. However this is a small sized distal vessel. 4. Mid Left Anterior Descending Coronary Artery was treated with Balloon and Drug Eluting Stent History of right below knee amputation Peritoneal dialysis catheter in place Removed due to recurrent peritonitis S/P cholecystectomy S/P hemodialysis catheter insertion S/P PICC central line placement (~2019) Status post amputation of toe Family History Denies family history of CAD (coronary artery disease) Clotting disorder Dementia Bleeding disorder Social History Smoking and tobacco status: never smoked Alcohol intake: never Household members: spouse and family History of recent travel: No Female Reproductive History: Spontaneous abortions: No Physical Exam Const: COMMON NORMALS: patient oriented x3 GENERAL APPEARANCE: ill appearing (Chronically ill) and appears older than stated age Resp: EFFORT & INSPECTION: Yes able to speak in complete sentences AUSCULTATION: diminished lung sounds Cardio: COMMON NORMALS: regular rate and regular rhythm RATE: regular rate RHYTHM: regular rhythm Extremity: COMMON NORMALS: normal to inspection and capillary refill normal Neuro: COMMON NORMALS: patient oriented x3, no focal motor deficits and no sensory deficits noted Psych: COMMON NORMALS: Normal thought process present APPEARANCE: Yes grossly normal ATTITUDE: Yes Withdrawn affect present SPEECH: Yes minimal MOOD & AFFECT: Yes depressed mood THOUGHT PROCESS: Normal thought process present THOUGHT CONTENT: Yes Suicidality present and Yes other (hopeless) Skin: COMMON NORMALS: no rashes or lesions noted GENERAL SKIN EXAM: no rashes or lesions noted Course Vital Signs: Vital signs: Vital Signs Temperature 98.4 F 06/08/22 16:50 Pulse Rate 71 06/08/22 18:06 Respiratory Rate 16 06/08/22 18:06 Pulse Oximetry 94 06/08/22 18:06 Oxygen Delivery Me thod 06/08/22 18:06 Oxygen Flow Rate 2 06/08/22 18:06 MDM - Psych Medical Decision Making Patient is medically cleared for placement. However she will be very difficult to find placement as she has a lot of chronic medical conditions that will make placement very difficult.. She is to receive dialysis tomorrow which severely limits available facilities. Lab Data 06/08/22 17:55 06/08/22 17:55 Radiology Impressions Chest X-Ray 06/08/22 17:05 IMPRESSION: 1. Right pleural effusion not significantly changed. 2. Right lower lobe infiltrate and atelectasis not significantly changed. 3. Mild left basilar atelectasis. Laboratory Results WBC 5.7 10^3/uL (4.0-10.0) 06/08/22 17:55 RBC 3.40 10^6/uL (4.1-5.3) L 06/08/22 17:55 Hgb 10.6 g/dL (11.5-15.3) L 06/08/22 17:55 Hct 33.0 % (37.0-47.0) L 06/08/22 17:55 MCV 97.1 fl (81-99) 06/08/22 17:55 MCH 31.2 pg (28.0-34.0) 06/08/22 17:55 MCHC 32.1 g/dL (30.0-36.0) 06/08/22 17:55 RDW 16.2 % (12.1-15.1) H 06/08/22 17:55 Plt Count 207 10^3/cmm (130-400) 06/08/22 17:55 MPV 11.5 fL (7.4-10.4) H 06/08/22 17:55 Neut % (Auto) 78.6 % 06/08/22 17:55 Lymph % (Auto) 12.2 % 06/08/22 17:55 [place] % (Auto) 7.4 % 06/08/22 17:55 Eos % (Auto) 0.9 % 06/08/22 17:55 Baso % (Auto) 0.5 % 06/08/22 17:55 Neut # (Auto) 4.45 10^3/uL (1.8-7.7) 06/08/22 17:55 Lymph # (Auto) 0.7 10^3/uL (0.8-4.8) L 06/08/22 17:55 [place] # (Auto) 0.4 10^3/uL (0.2-0.9) 06/08/22 17:55 Eos # (Auto) 0.1 10^3/uL (0.0-0.8) 06/08/22 17:55 Baso # (Auto) 0.0 10^3/uL (0.0-0.1) 06/08/22 17:55 Nucleated RBC % (auto) 0 % 06/08/22 17:55 Nucleated RBCs # 0.0 /100WBC 06/08/22 17:55 Sodium 138 mmol/L (136-145) 06/08/22 17:55 Potassium 5.2 mmol/L (3.5-5.1) H 06/08/22 17:55 Chloride 97 mmol/L (98-107) L 06/08/22 17:55 Carbon Dioxide 21 mmol/L (22-29) L 06/08/22 17:55 Anion Gap 25.2 (5-19) H 06/08/22 17:55 BUN 58 mg/dL (6-20) H 06/08/22 17:55 Creatinine 7.5 mg/dL (0.5-0.9) H* 06/08/22 17:55 GFR Calculation 5.6 mL/min (90-130) L 06/08/22 17:55 Glucose 96 mg/dL (65-115) 06/08/22 17:55 Calculated Osmolality 302 mOsm/kg (285-295) H 06/08/22 17:55 Calcium 10.4 mg/dL (8.5-10.5) 06/08/22 17:55 Magnesium 2.3 mg/dL (1.7-2.3) 06/08/22 17:55 Total Bilirubin 0.5 mg/dL (0.15-1.2) 06/08/22 17:55 AST 17 U/L (0-32) 06/08/22 17:55 ALT 19 U/L (0-33) 06/08/22 17:55 Alkaline Phosphatase 86 U/L (35-105) 06/08/22 17:55 NT-Pro-B Natriuret Pep 06611 pg/mL (0-125) H 06/08/22 17:55 Total Protein 7.5 g/dL (6.6-8.7) 06/08/22 17:55 Albumin 4.0 g/dL (3.5-5.2) 06/08/22 17:55 Globulin 3.5 g/dL (1.3-4.6) 06/08/22 17:55 Salicylates < 0.3 mg/dL (3-10) L 06/08/22 17:55 Acetaminophen < 5.0 ug/mL (10-30) L 06/08/22 17:55 Ethyl Alcohol < 10 mg/dL (0-10) 06/08/22 17:55 Discharge Plan Discharge Patient Disposition: Admitted As Inpatient Clinical Impression: Suicidal ideation, Chronic kidney disease with end stage renal failure on dialysis Condition: Stable Prescriptions: No Action tizanidine 4 mg capsule 4 mg PO Q6H PRN (Reason: muscle spasticity) Qty: 60 2RF Rx Instructions: do not exceed 3 doses per 24 hrs hydrocodone-acetaminophen 5-325 mg tablet 1 tab PO Q8H PRN (Reason: pain) 30 Days Qty: 90 0RF (DME) pen needle, diabetic [ReliOn Pen [place]] 32 gauge x 5/32 needle See Rx Instructions .ROUTE .MEDSUPPLY Qty: 100 6RF Rx Instructions: use for insulin injections (DME) PROSTHETIC SUPPLIES See Rx Instructions .Route .MEDSUPPLY Qty: 1 0RF Rx Instructions: As directed levothyroxine [Euthyrox] 150 mcg tablet 150 mcg PO QAM Qty: 90 3RF atorvastatin 40 mg tablet 40 mg PO DAILY@20 Qty: 90 3RF clonazepam 0.25 mg tablet,disintegrating 0.25 mg PO BID PRN (Reason: Anxiety) Qty: 30 5RF aspirin 81 mg Tablet,Chewable 81 mg PO DAILY@08 Hold Instructions: Resume on 10/24/21. cholecalciferol (vitamin D3) [Vitamin D3] 25 mcg (1,000 unit) Tablet 25 mcg PO BEDTIME omega 5-qaz-rft-fish oil [Fish Oil] 300-1,000 mg Capsule,Delayed Release(Dr/Ec) 1 cap PO BID furosemide [Lasix] 40 mg Tablet 40 mg PO BID spironolactone 25 mg Tablet 25 mg PO DAILY nitroglycerin [Nitrostat] 0.4 mg Tablet, Sublingual 0.4 mg SUBLINGUAL Q5M PRN (Reason: Chest Pain) Rx Instructions: do not exceed 3 doses per episode albuterol sulfate 90 mcg/actuation Hfa Aerosol Inhaler 2 puff INHALATION Q4H PRN (Reason: Shortness Of Breath) cinacalcet 60 mg Tablet 60 mg PO QAM Combivent Respimat 20-100 mcg/actuation Mist 1 puff INHALATION DAILY PRN (Reason: Shortness Of Breath) Rx Instructions: space evenly during waking hours Dialyvite 100-1 mg tablet 1 tab PO DAILY lactulose [Constulose] 10 gram/15 mL solution 10 g PO DAILY PRN (Reason: Constipation) hydralazine 50 mg tablet 50 mg PO BID RenaPlex-D 800 mcg-12.5 mg -2,000 unit tablet 1 tab PO QPM amlodipine 10 mg tablet 10 mg PO QAM Pepcid AC 20 mg Tablet 20 mg PO QAM Durezol 0.05 % drops 1 drp ophthalmic (eye) BID Rx Instructions: right eye Lantus Solostar U-100 Insulin 100 unit/mL (3 mL) insulin pen 5 unit SUBCUT BID PRN (Reason: blood sugar) Referrals: Jacob Sharp DO [Primary Care Provider] - Coding Level of Care Code ED Dementia Program Director for Chg Fwd Exam Detailed Documented by User: Carlos A Jeronimo MD 06/08/22 23:28 HPI - Psych General: Chief Complaint: Psychiatric Symptoms Stated Complaint: SI Time Seen by Provider: 06/08/22 16:54 [facility] ED PFSH: Medical History Acute dyspnea Acute hyperkalemia Acute hyperkalemia Adjustment disorder with mixed disturbance of emotions and conduct Anemia in chronic kidney disease Anxiety Anxiety and depression BPPV (benign paroxysmal positional vertigo) CAD (coronary artery disease) Carotid stenosis 04/2020: Right < 50%, Left near 70% CHF exacerbation Chronic diastolic CHF (congestive heart failure) 12/2020 EF 55%, grade II/IV diastolic dysfunction Chronic kidney disease Chronic left sacroiliac joint pain CKD (chronic kidney disease) stage 5, GFR less than 15 ml/min Claustrophobia Compressive atelectasis Congestive heart failure Congestive heart failure Diabetes mellitus Diabetes mellitus, with long-term current use of insulin Diverticulitis Elevated troponin End stage renal disease End-stage renal disease (ESRD) ESBL (extended spectrum beta-lactamase) producing bacteria infection ESRD (end stage renal disease) on dialysis DAILY (generalized anxiety disorder) Gastroparesis GERD (gastroesophageal reflux disease) Gram-negative bacteremia Hemodialysis catheter dysfunction HTN (hypertension) Hyperlipidemia Hypocalcemia due to chronic kidney disease Hypothyroidism Hypoxemia Light headedness Lumbar back pain Major depression, recurrent Mixed dyslipidemia Noncompliance DOROTEO on CPAP PAD (peripheral artery disease) Partial nontraumatic amputation of left foot (~06/2019) Peripheral vascular disease Peritonitis associated with peritoneal dialysis Phantom pain Pneumonia due to COVID-19 virus (~12/2020) Positive cardiac stress test Sleep apnea Suicidal ideation TIA (transient ischemic attack) Vitamin D deficiency Surgical History AV (arteriovenous fistula) (~10/2020) H/O hysterectomy with oophorectomy History of appendectomy History of cataract surgery History of heart artery stent PCI to LAD, done in [place], [place] 10/2018 ENRIQUE to mid LAD at [facility] 04/2020 History of hysterectomy History of left heart catheterization 04/2020 Findings: 1. There is severe coronary artery disease. 2. FFR of mid LAD was 0.76. 3. Severe OM 2 stenosis. However this is a small sized distal vessel. 4. Mid Left Anterior Descending Coronary Artery was treated with Balloon and Drug Eluting Stent History of right below knee amputation Peritoneal dialysis catheter in place Removed due to recurrent peritonitis S/P cholecystectomy S/P hemodialysis catheter insertion S/P PICC central line placement (~2019) Status post amputation of toe Family History Denies family history of CAD (coronary artery disease) Clotting disorder Dementia Bleeding disorder Social History Smoking and tobacco status: never smoked Alcohol intake: never Household members: spouse and family History of recent travel: No Course Vital Signs: Vital signs: Vital Signs Temperature 98.4 F 06/08/22 16:50 Pulse Rate 71 06/08/22 18:06 Respiratory Rate 16 06/08/22 18:06 Pulse Oximetry 94 06/08/22 18:06 Oxygen Delivery Me thod 06/08/22 18:06 Oxygen Flow Rate 2 06/08/22 18:06 MDM - Psych Medical Decision Making Patient is medically cleared for placement. However she will be very difficult to find placement as she has a lot of chronic medical conditions that will make placement very difficult.. She is to receive dialysis tomorrow which severely limits available facilities. Patient was evaluated by Dr. Ghotra who believes she does require inpatient psychiatry admission we will have any psych meds at this time patient is actually scheduled for dialysis tomorrow I did speak to the hospitalist will admit inpatient here at this time with her end-stage renal disease she will receive dialysis tomorrow Dr. Ghotra believes they have a psych bed opening up tomorrow and that she will likely be transferred to the psych freeman Dr. Ghotra is consulted at this time as well for her suicidality. Lab Data 06/08/22 17:55 06/08/22 17:55 Radiology Impressions Chest X-Ray 06/08/22 17:05 IMPRESSION: 1. Right pleural effusion not significantly changed. 2. Right lower lobe infiltrate and atelectasis not significantly changed. 3. Mild left basilar atelectasis. Laboratory Results WBC 5.7 10^3/uL (4.0-10.0) 06/08/22 17:55 RBC 3.40 10^6/uL (4.1-5.3) L 06/08/22 17:55 Hgb 10.6 g/dL (11.5-15.3) L 06/08/22 17:55 Hct 33.0 % (37.0-47.0) L 06/08/22 17:55 MCV 97.1 fl (81-99) 06/08/22 17:55 MCH 31.2 pg (28.0-34.0) 06/08/22 17:55 MCHC 32.1 g/dL (30.0-36.0) 06/08/22 17:55 RDW 16.2 % (12.1-15.1) H 06/08/22 17:55 Plt Count 207 10^3/cmm (130-400) 06/08/22 17:55 MPV 11.5 fL (7.4-10.4) H 06/08/22 17:55 Neut % (Auto) 78.6 % 06/08/22 17:55 Lymph % (Auto) 12.2 % 06/08/22 17:55 [place] % (Auto) 7.4 % 06/08/22 17:55 Eos % (Auto) 0.9 % 06/08/22 17:55 Baso % (Auto) 0.5 % 06/08/22 17:55 Neut # (Auto) 4.45 10^3/uL (1.8-7.7) 06/08/22 17:55 Lymph # (Auto) 0.7 10^3/uL (0.8-4.8) L 06/08/22 17:55 [place] # (Auto) 0.4 10^3/uL (0.2-0.9) 06/08/22 17:55 Eos # (Auto) 0.1 10^3/uL (0.0-0.8) 06/08/22 17:55 Baso # (Auto) 0.0 10^3/uL (0.0-0.1) 06/08/22 17:55 Nucleated RBC % (auto) 0 % 06/08/22 17:55 Nucleated RBCs # 0.0 /100WBC 06/08/22 17:55 Sodium 138 mmol/L (136-145) 06/08/22 17:55 Potassium 5.2 mmol/L (3.5-5.1) H 06/08/22 17:55 Chloride 97 mmol/L (98-107) L 06/08/22 17:55 Carbon Dioxide 21 mmol/L (22-29) L 06/08/22 17:55 Anion Gap 25.2 (5-19) H 06/08/22 17:55 BUN 58 mg/dL (6-20) H 06/08/22 17:55 Creatinine 7.5 mg/dL (0.5-0.9) H* 06/08/22 17:55 GFR Calculation 5.6 mL/min (90-130) L 06/08/22 17:55 Glucose 96 mg/dL (65-115) 06/08/22 17:55 Calculated Osmolality 302 mOsm/kg (285-295) H 06/08/22 17:55 Calcium 10.4 mg/dL (8.5-10.5) 06/08/22 17:55 Magnesium 2.3 mg/dL (1.7-2.3) 06/08/22 17:55 Total Bilirubin 0.5 mg/dL (0.15-1.2) 06/08/22 17:55 AST 17 U/L (0-32) 06/08/22 17:55 ALT 19 U/L (0-33) 06/08/22 17:55 Alkaline Phosphatase 86 U/L (35-105) 06/08/22 17:55 NT-Pro-B Natriuret Pep 36578 pg/mL (0-125) H 06/08/22 17:55 Total Protein 7.5 g/dL (6.6-8.7) 06/08/22 17:55 Albumin 4.0 g/dL (3.5-5.2) 06/08/22 17:55 Globulin 3.5 g/dL (1.3-4.6) 06/08/22 17:55 Salicylates < 0.3 mg/dL (3-10) L 06/08/22 17:55 Acetaminophen < 5.0 ug/mL (10-30) L 06/08/22 17:55 Ethyl Alcohol < 10 mg/dL (0-10) 06/08/22 17:55 Discharge Plan Discharge Patient Disposition: Admitted As Inpatient Clinical Impression: Suicidal ideation, Chronic kidney disease with end stage renal failure on dialysis Condition: Stable Prescriptions: No Action tizanidine 4 mg capsule 4 mg PO Q6H PRN (Reason: muscle spasticity) Qty: 60 2RF Rx Instructions: do not exceed 3 doses per 24 hrs hydrocodone-acetaminophen 5-325 mg tablet 1 tab PO Q8H PRN (Reason: pain) 30 Days Qty: 90 0RF (DME) pen needle, diabetic [ReliOn Pen [place]] 32 gauge x 5/32 needle See Rx Instructions .ROUTE .MEDSUPPLY Qty: 100 6RF Rx Instructions: use for insulin injections (DME) PROSTHETIC SUPPLIES See Rx Instructions .Route .MEDSUPPLY Qty: 1 0RF Rx Instructions: As directed levothyroxine [Euthyrox] 150 mcg tablet 150 mcg PO QAM Qty: 90 3RF atorvastatin 40 mg tablet 40 mg PO DAILY@20 Qty: 90 3RF clonazepam 0.25 mg tablet,disintegrating 0.25 mg PO BID PRN (Reason: Anxiety) Qty: 30 5RF aspirin 81 mg Tablet,Chewable 81 mg PO DAILY@08 Hold Instructions: Resume on 10/24/21. cholecalciferol (vitamin D3) [Vitamin D3] 25 mcg (1,000 unit) Tablet 25 mcg PO BEDTIME omega 3-zki-fxc-fish oil [Fish Oil] 300-1,000 mg Capsule,Delayed Release(Dr/Ec) 1 cap PO BID furosemide [Lasix] 40 mg Tablet 40 mg PO BID spironolactone 25 mg Tablet 25 mg PO DAILY nitroglycerin [Nitrostat] 0.4 mg Tablet, Sublingual 0.4 mg SUBLINGUAL Q5M PRN (Reason: Chest Pain) Rx Instructions: do not exceed 3 doses per episode albuterol sulfate 90 mcg/actuation Hfa Aerosol Inhaler 2 puff INHALATION Q4H PRN (Reason: Shortness Of Breath) cinacalcet 60 mg Tablet 60 mg PO QAM Combivent Respimat 20-100 mcg/actuation Mist 1 puff INHALATION DAILY PRN (Reason: Shortness Of Breath) Rx Instructions: space evenly during waking hours Dialyvite 100-1 mg tablet 1 tab PO DAILY lactulose [Constulose] 10 gram/15 mL solution 10 g PO DAILY PRN (Reason: Constipation) hydralazine 50 mg tablet 50 mg PO BID RenaPlex-D 800 mcg-12.5 mg -2,000 unit tablet 1 tab PO QPM amlodipine 10 mg tablet 10 mg PO QAM Pepcid AC 20 mg Tablet 20 mg PO QAM Durezol 0.05 % drops 1 drp ophthalmic (eye) BID Rx Instructions: right eye Lantus Solostar U-100 Insulin 100 unit/mL (3 mL) insulin pen 5 unit SUBCUT BID PRN (Reason: blood sugar) Referrals: Jacob Sharp DO [Primary Care Provider] - Coding Level of Care Code ED Dementia Program Director for Chg Fwd Exam Detailed
[2022-06-08 18:03] LABS: Basophils % 0.5 %; Eosinophils # 0.1 10^3/uL (0.0-0.8); Eosinophils % 0.9 %; Hemoglobin 10.6 g/dL (11.5-15.3); Lymphocytes # 0.7 10^3/uL (0.8-4.8); Lymphocytes % 12.2 %; Mean Corpuscular HGB Conc 32.1 g/dL (30.0-36.0); Mean Corpuscular Hemoglobin 31.2 pg (28.0-34.0); Mean Corpuscular Volume 97.1 fl (81-99); Mean Platelet Volume 11.5 fL (7.4-10.4); Monocytes # 0.4 10^3/uL (0.2-0.9); Monocytes % 7.4 %; Neutrophils # 4.45 10^3/uL (1.8-7.7); Neutrophils % 78.6 %; Nucleated Red Blood Cells % 0 %; Platelet Count 207 10^3/cmm (130-400); Red Cell Distribution Width 16.2 % (12.1-15.1); White Blood Count 5.7 10^3/uL (4.0-10.0)
[2022-06-08 18:06] VITALS: PULSE 71; RESP 16; O2SAT 94
[2022-06-08 18:31] LABS: Alanine Aminotransferase 19 U/L (0-33); Alkaline Phosphatase 86 U/L (35-105); Anion Gap 25.2 (5-19); Aspartate Amino Transferase 17 U/L (0-32); Blood Urea Nitrogen 58 mg/dL (6-20); Calcium 10.4 mg/dL (8.5-10.5); Carbon Dioxide 21 mmol/L (22-29); Chloride 97 mmol/L (98-107); Globulin 3.5 g/dL (1.3-4.6); Glomerular Filtration Rate 5.6 mL/min (90-130); Glucose 96 mg/dL (65-115); Magnesium 2.3 mg/dL (1.7-2.3); Osmolality Calculated 302 mOsm/kg (285-295); Potassium 5.2 mmol/L (3.5-5.1); Sodium 138 mmol/L (136-145); Total Bilirubin 0.5 mg/dL (0.15-1.2); Total Protein 7.5 g/dL (6.6-8.7)
[2022-06-08 18:52] LABS: Acetaminophen < 5.0 ug/mL (10-30); Alcohol Level < 10 mg/dL (0-10); NT Pro B Type Natriuretic Pept 47270 pg/mL (0-125); Salicylate < 0.3 mg/dL (3-10)
--- NOTE | 2022-06-08 18:57 | PC.NURSE ---
REPORTED 7.[address] VERA VERBALIZED UNDERSTANDING NO FURTHER ORDERS.
--- NOTE | 2022-06-08 20:58 | P.NPUHP_ITS ---
Providers/Chief Complaint Admitting Physician: Ewa Mccarty MD Primary Care Provider: Jacob Sharp DO Chief Complaint: SI HPI NPU History of Present Illness Rizwana Herzog is a 57 year old female who presented emergency department with the following report: Chief Complaint: Psychiatric Symptoms Stated Complaint: SI Time Seen by Provider: 06/08/22 16:54 History of Present Illness: 57-year-old female with chronic medical conditions presents because she tired of living and she just does not want to keep going anymore. Patient is on chronic respiratory failure on home oxygen. She is a dialysis patient. She reports she has had some mild increase shortness of breath for 3 days. She has other multiple comorbidities and is just tired of dealing with them. She does not have a plan. She stated that she felt like she would just quit going to dialysis and it would eventually take care of itself. she just feels hopeless. Associated symptoms: Reports depression and suicidal ideation. Concern existed about her lethality and a psychiatric consult was requested to evaluate for need for inpatient services. Patient is today reporting that she is really struggling recently. She reports that she is tired and at times feels like she does want to go on. She was quite tearful and ultimately identified that she should probably stay versus going home. She reports that she has some supports but she feels like a burden most of the time. She endorsed desire for the pain to end. She reports that she has been short of breath recently but could not identify whether that represented issues regarding her dialysis or concerns related to her CHF. She does use oxygen at home. She reports she is on fish oil and she believes Zoloft but she cannot remember the dose. We agreed that research and verify Zoloft. We discussed the risks, benefits and alternatives of increasing the dose and she understood agreed to proceed as is documented in this note. We reviewed her psychiatric history and her recent interaction with the neuropsychiatric team and excerpt is included below for context. Per her 05/01/2020 [facility] inpatient psychiatric consult: History of Present Illness Rizwana Herzog is a 55 year old female seen by this physician less than 24 hours ago for the similar complaint after she had been admitted to the [facility]. Patient presents to the emergency room with the following report from the ER staff: HPI Narrative: 55-year-old female patient presents to the emergency department for mental health evaluation. She reports 04/28/2020, was told by her family that she did not do anything, she reports feeling worthless since statement was made. She has insulin-dependent diabetes, chronic kidney disease, remains on peritoneal dialysis, recent stent placement, cardiac history. She reports medical problems caused her to feel tired all the time. She reports would like to feel good again but is tired of feeling bad. She is requesting help today. Following the patient's report to the emergency room, information from the crisis intervention worker was acquired: Intervention:: salvage mend worker used open ended questions and supportive listening to assess client current level of needs. Client reported that she escaped from the hospital and thinks that she needs to go back. Client stated that she is still having suicidal thoughts and is afraid that I will try again . salvage mend worker talked to client's daughter, Josefa, who agreed that she felt comfortable transporting client back to the hospital. salvage mend worker contacted the ER and the NPU; client did not escape from the hospital but she did leave AMA. Events leading to her original hospitalization less than 48 hours ago will be briefly reviewed here though full details are in her chart. History of Present Illness Rizwana Herzog is a 55 year old female who was admitted to the adult psychiatric unit following an overdose of Tylenol and metoprolol in a suicide attempt. Patient states that she has become increasingly despondent over the past 6 months through a combination of her medical difficulties and her lack of support from family members. She has been presented with increasing challenges due to her multiple medical problems which are listed in this chart. She recently has had an amputation and a cerebrovascular event which have further impaired her mobility and capacity to perform her daily activities. She states that her has been not supportive and has been demeaning and dismissive. She cites a lack of emotional support. She reports increasing despondency being sad and blue on a daily basis, feeling hopeless, overwhelmed, irritable. She reports anhedonia. Sleep has been poor. She began having suicidal thoughts 2 weeks ago. She had no specific plan but apparently on the day of hospi talization, her made some particularly cutting and insensitive remarks. She impulsively took her pills stating that she had simply reached her limit. She denied the presence of auditory or visual hallucinations and substance abuse issues do not seem to be a factor. On interview, she is glad that the pills were not effective in achieving their desired goal at the time of ingestion. However she continues to be despondent and hopeless. She says that she used to enjoy playing with her animals and her grandchildren. She does not look forward to that at all and it brings her no hoda. There is nothing in the future for which she is anticipating. Her medical issues continue to expand. Rizwana Herzog is a 55-year old woman with the misfortune of having been labored with an incredible number of medical maladies. These currently are being amplified by psychosocial dynamics which are increasing the severity of these barriers to optimal level of function. She feels burdened to the extent that she is not able to do things that she used to do previously and when she is able to accomplish tasks of daily living that would be simple for other people, she is not given credit by those around her. She meets criteria for clinical depression. Her suicide attempt was impulsive and again amplified by either the lack of availability or lack of engagement of supplemental emotional support systems. The patient was interviewed in a [id number] manner in emergency rooms unit #9: It is unclear what happened after the patient left the hospital AGAINST MEDICAL ADVICE last evening. She does not detail any specific events but continues to refer to her lack of emotional support by her . She continues to detail her considerable medical disabilities and her frustration and getting appropriate care with barriers placed on her by the COVID pandemic. Most specifically, her meetings with individual therapist have been over the phone which is frustrating to her and it is difficult for her to have those sessions in privacy. While there is problems exist, they have not changed since yesterday. In discussion today, the patient reiterated her same feeling of abandonment. At no time did she state that she was intending to suicide or harm herself. To her benefit, it sounds as though she may have contacted crisis intervention in an attempt to engage at supplemental emotional support. Unfortunately she winds up in the emergency room again feeling abandoned with the only institution willing to accept her in the state as being the hospital. [facility] NPU PFSH: Medical History Anxiety CAD (coronary artery disease) Chronic diastolic CHF (congestive heart failure) Compensated currently Chronic kidney disease, stage V Claustrophobia Depression Diabetes Insulin-dependent End stage renal disease ESRD (end stage renal disease) Gastroparesis GERD (gastroesophageal reflux disease) HTN (hypertension) Hyperlipidemia Hypothyroidism Partial nontraumatic amputation of left foot (~06/2019) Peripheral vascular disease TIA (transient ischemic attack) Vitamin D deficiency Surgical History History of appendectomy History of heart artery stent History of hysterectomy History of left heart catheterization History of right below knee amputation Peritoneal dialysis catheter in place S/P cholecystectomy S/P PICC central line placement Status post amputation of toe Family History Denies family history of CAD (coronary artery disease) Clotting disorder Dementia Bleeding disorder Social History Smoking and tobacco status: never smoked Alcohol intake: never Household members: spouse and family History of recent travel: No Meds NPU Home Medications Medication Instructions Recorded Confirmed Last Taken Type aspirin 81 mg chewable tablet 81 mg PO DAILY@08 06/25/19 06/09/22 05/24/22 History omega 2-qbx-jxl-fish oil 300 1 cap PO DAILY 01/17/20 06/09/22 04/25/22 History mg-1,000 mg capsule,delayed release (Fish Oil) cholecalciferol (vitamin D3) 25 25 mcg PO BEDTIME 05/14/20 06/09/22 05/24/22 History mcg (1,000 unit) tablet (Vitamin D3) pen needle, diabetic 32 gauge x #100 ea 06/17/21 06/09/22 Unknown Rx (ReliOn Pen [place]) PROSTHETIC SUPPLIES #1 ea 08/21/21 06/09/22 Unknown Rx vitamin B complex-vitamin C 100 1 tab PO DAILY 09/02/21 06/09/22 04/25/22 History mg-folic acid 1 mg tablet (Dialyvite) levothyroxine 150 mcg tablet 150 mcg PO QAM #90 tabs 11/04/21 06/09/22 05/24/22 Rx (Euthyrox) atorvastatin 40 mg tablet 40 mg PO DAILY@20 #90 tabs 12/17/21 06/09/22 05/24/22 Rx lactulose 10 gram/15 mL oral 10 g PO DAILY PRN Constipation 02/02/22 06/09/22 Unknown History solution (Constulose) tizanidine 4 mg capsule 4 mg PO Q6H PRN muscle spasticity 02/16/22 06/09/22 Unknown Rx #60 caps albuterol sulfate 90 mcg/actuation 2 puff inhalation Q4H PRN 04/25/22 06/09/22 Unknown History aerosol inhaler Shortness Of Breath cinacalcet 60 mg tablet 60 mg PO QAM 04/25/22 06/09/22 05/24/22 History furosemide 40 mg tablet (Lasix) 40 mg PO BID 04/25/22 06/09/22 05/24/22 History ipratropium 20 mcg-albuterol 100 1 puff inhalation DAILY PRN 04/25/22 06/09/22 Unknown History mcg/actuation mist for inhalation Shortness Of Breath (Combivent Respimat) nitroglycerin 0.4 mg sublingual 0.4 mg sublingual Q5M PRN Chest 04/25/22 06/09/22 Unknown History tablet (Nitrostat) Pain spironolactone 25 mg tablet 25 mg PO DAILY 04/25/22 06/09/22 04/25/22 History clonazepam 0.25 mg disintegrating 0.25 mg PO BID PRN Anxiety #30 tabs 05/07/22 06/09/22 Unknown Rx tablet amlodipine 10 mg tablet 10 mg PO QAM 05/25/22 06/09/22 05/24/22 History difluprednate 0.05 % eye drops 1 drp ophthalmic (eye) BID 05/25/22 06/09/22 Unknown History (Durezol) famotidine 20 mg tablet (Pepcid AC) 20 mg PO QAM 05/25/22 06/09/22 Unknown History hydralazine 50 mg tablet 50 mg PO BID 05/25/22 06/09/22 05/24/22 History insulin glargine 100 unit/mL (3 6 unit SUBCUT BID 05/25/22 06/09/22 1 Month Ago History mL) subcutaneous pen (Lantus ~04/25/22 Solostar U-100 Insulin) vit B,C-folic ac 800 mcg-zinc 12.5 1 tab PO QPM 05/25/22 06/09/22 05/24/22 History mg-selen-D3 2,000 unit-vit E tablet (RenaPlex-D) hydrocodone 5 mg-acetaminophen 325 1 tab PO Q8H PRN pain 30 days #90 06/04/22 06/09/22 Unknown Rx mg tablet tabs cephalexin 500 mg capsule 500 mg PO Q6H 06/09/22 06/09/22 Unknown History sertraline 50 mg tablet 50 mg PO DAILY 06/09/22 06/09/22 Unknown History Allergies Allergy/AdvReac Type Severity Reaction Status Date / Time metformin [From Glucophage] Allergy Severe Unknown Verified 06/09/22 09:21 venlafaxine [From Effexor] Allergy Severe ADR-Shakine Verified 06/09/22 09:21 ss PFSH NPU PFSH: Medical History (Updated 06/10/22 @ 13:13 by Gallito Ghotra MD) Acute dyspnea Acute hyperkalemia Acute hyperkalemia Adjustment disorder with mixed disturbance of emotions and conduct Anemia in chronic kidney disease Anxiety Anxiety and depression BPPV (benign paroxysmal positional vertigo) CAD (coronary artery disease) Carotid stenosis 04/2020: Right < 50%, Left near 70% CHF exacerbation Chronic diastolic CHF (congestive heart failure) 12/2020 EF 55%, grade II/IV diastolic dysfunction Chronic kidney disease Chronic left sacroiliac joint pain CKD (chronic kidney disease) stage 5, GFR less than 15 ml/min Claustrophobia Compressive atelectasis Congestive heart failure Congestive heart failure Diabetes mellitus Diabetes mellitus, with long-term current use of insulin Diverticulitis Elevated troponin End stage renal disease End-stage renal disease (ESRD) ESBL (extended spectrum beta-lactamase) producing bacteria infection ESRD (end stage renal disease) on dialysis DAILY (generalized anxiety disorder) Gastroparesis GERD (gastroesophageal reflux disease) Gram-negative bacteremia Hemodialysis catheter dysfunction HTN (hypertension) Hyperlipidemia Hypocalcemia due to chronic kidney disease Hypothyroidism Hypoxemia Light headedness Lumbar back pain Major depression, recurrent Mixed dyslipidemia Noncompliance DOROTEO on CPAP PAD (peripheral artery disease) Partial nontraumatic amputation of left foot (~06/2019) Peripheral vascular disease Peritonitis associated with peritoneal dialysis Phantom pain Pneumonia due to COVID-19 virus (~12/2020) Positive cardiac stress test Sleep apnea Suicidal ideation TIA (transient ischemic attack) Vitamin D deficiency Surgical History AV (arteriovenous fistula) (~10/2020) H/O hysterectomy with oophorectomy History of appendectomy History of cataract surgery History of heart artery stent PCI to LAD, done in [place], [place] 10/2018 ENRIQUE to mid LAD at [facility] 04/2020 History of hysterectomy History of left heart catheterization 04/2020 Findings: 1. There is severe coronary artery disease. 2. FFR of mid LAD was 0.76. 3. Severe OM 2 stenosis. However this is a small sized distal vessel. 4. Mid Left Anterior Descending Coronary Artery was treated with Balloon and Drug Eluting Stent History of right below knee amputation Peritoneal dialysis catheter in place Removed due to recurrent peritonitis S/P cholecystectomy S/P hemodialysis catheter insertion S/P PICC central line placement (~2019) Status post amputation of toe Family History Denies family history of CAD (coronary artery disease) Clotting disorder Dementia Bleeding disorder Social History Smoking and tobacco status: never smoked Alcohol intake: never Household members: spouse and family History of recent travel: No Female Reproductive History: Spontaneous abortions: No Mental Status Exam MSE Comments: This is an overweight versus obese white female in hospital attire with limited grooming and eye contact with nasal cannula appropriately fixed. No allegorical except for mild psychomotor retardation. Cooperative exam in moderate distress. Speech was decreased rate and volume with occasional gasps that seemed to reflect double reading. Mood described as depressed, affect congruent. Thought process organized. Thought content: Patient denied homicidal delusions or suicidal ideation, no delusions reported noted, she denied any auditory or visual hallucinations. Attention and concentration were intact and memory appeared reliable but none were formally tested. She alert an d oriented x3. Insight and judgment are limited and impulse control impaired. Vitals/I&O/Wt Last Vital Signs Temp 98.4 F 06/08/22 16:50 Pulse 71 06/08/22 18:06 Resp 16 06/08/22 18:06 BP 148/76 06/08/22 18:06 Pulse Ox 94 06/08/22 18:06 O2 Del Method 06/08/22 18:06 O2 Flow Rate 2 06/08/22 18:06 l Balance Weight last 48 hrs Weight 76.4 kg Weight 79.379 kg Weight 81.193 kg Data NPU 06/09/22 04:30 06/09/22 04:30 A&P Assessment and plan (1) Suicidal ideation: (2) Chest pain: (3) Acute hyperkalemia: (4) Anxiety and depression: (5) HTN (hypertension): (6) Hyperlipidemia: Qualifiers: Hyperlipidemia type: unspecified Qualified Code(s): E78.5 - Hyperlipidemia, unspecified (7) Adjustment disorder with mixed disturbance of emotions and conduct: (8) Major depressive disorder: (9) Chronic kidney disease with end stage renal failure on dialysis: (10) Dyspnea on minimal exertion: (11) Thoracic compression fracture: Qualifiers: Encounter type: subsequent encounter Thoracic vertebra fracture level: T2 Fracture healing: with routine healing Qualified Code(s): S22.020D - Wedge compression fracture of second thoracic vertebra, subsequent encounter for fra cture with routine healing (12) GERD without esophagitis: (13) Tinea corporis: (14) Tinea cruris: (15) Lumbar paraspinal muscle spasm: (16) Lumbar radiculopathy: (17) DOROTEO on CPAP: (18) Chronic diastolic CHF (congestive heart failure): (19) Missed dialysis: (20) Noncompliance: (21) End-stage renal disease needing dialysis: Plan This is a 57-year-old white female with a huge list of medical comorbidities who presents having missed recent dialysis appointment with reported desire to discontinue dialysis and allow herself to significant depression reported. 1. We will follow as patient admitted to medical floor. 2. Intake psychiatric care is indicated. 3. We will evaluate current medications and make recommendations as indicated. 4. We will assess whether or not she would be stable enough to be on the psychiatric unit. Involuntary Hold Information 96 Hour Hold: 96 Hour Involuntary Admission: Yes 96 Hour Hold Ending Date: 05/06/20 96 Hour Hold Ending Time: 20:06 Attestations NPU Medical Necessity Statement*: N/A. Please see primary provider note for medical necessity. However inpatient psychiatric care is indicated for over 2 midnights. 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 for Maris Braden Diagnoses Suicidal ideation R45.851 Chest pain R07.9 Acute hyperkalemia E87.5 Anxiety and depression F41.9; F32.A HTN (hypertension) I10 Hyperlipidemia E78.5 Hyperlipidemia type: unspecified Adjustment disorder with mixed disturbance of emotions and conduct F43.25 Major depressive disorder F32.9 Chronic kidney disease with end stage renal failure on dialysis N18.6; Z99.2 Dyspnea on minimal exertion R06.09 Thoracic compression fracture S22.020D Encounter type: subsequent encounter Thoracic vertebra fracture level: T2 Fracture healing: with routine healing GERD without esophagitis K21.9 Tinea corporis B35.4 Tinea cruris B35.6 Lumbar paraspinal muscle spasm M62.830 Lumbar radiculopathy M54.16 DOROTEO on CPAP G47.33; Z99.89 Chronic diastolic CHF (congestive heart failure) I50.32 Missed dialysis Noncompliance Z91.19 End-stage renal disease needing dialysis N18.6; Z99.2
--- NOTE | 2022-06-08 21:41 | PC.NURSE ---
Went to ask pt to urinate for collection. Pt states unable to urinate right now. Pt is on dialysis and states that she only urinates 1 or 2 a day
[2022-06-08] MEDS: HYDROcodone-acetaminophen 5-325 mg Tablet 0.5 TAB PO (23:22)
--- NOTE | 2022-06-08 23:45 | PM.HP ---
Providers/Chief Complaint Admitting Physician: Ewa Mccarty MD Primary Care Provider: Jacob Sharp DO Chief Complaint: SI History of Present Illness Rizwana Herzog is a 57 year old female with past medical history of multitude of medical problems including end-stage renal disease, dialysis dependent, coronary artery disease, CHF, diabetes mellitus, anxiety, depression, hypertension, hyperlipidemia, chronic back pain, DOROTEO, TIA, pneumonia presented to the hospital today for suicidal ideation. She states she is tired of living he does not want to keep living anymore. She has had some shortness of breath for the last few days. Patient states she is tired of dealing with all her medical problems. She does not have an exact plan of execution however does state that she feels like quitting dialysis and therefore eventually she would . Patient feels hopeless. Has been depressed and having suicidal ideation. Says was recently diagnosed with thoracic questionable compression fracture. She has been given a prescription to request MRI spine however is still waiting on the scheduling. She states she was not given a brace so far either. Her back pain is really bothering her and therefore she is very fed up with everything. Has not missed any dialysis sessions and her last session was this past Wednesday. Has been compliant with her medications as well. States has been struggling with anxiety and depression recently. Has been on Klonopin but does not feel like it is helping. Patient is requesting pain medications at this time. ER course: Patient was evaluated by psychiatry Dr. Ghotra. Patient will need inpatient psychiatric admission however will need to be dialyzed prior to going to the [facility]. Patient will be admitted to medicine at this time. Labs reviewed. Potassium 5.2. Creatinine 7.5. Anion gap 25. Discussed with ER physician. Patient will be dialyzed in the morning prior to being transferred to [facility]. Nephro consulted. Medications/Allergies Home Medications Medication Instructions Recorded Confirmed Last Taken Type aspirin 81 mg chewable tablet 81 mg PO DAILY@06/25/19 06/04/22 05/24/22 History omega 7-eeq-hzs-fish oil 300 1 cap PO BID 01/17/20 06/04/22 04/25/22 History mg-1,000 mg capsule,delayed release (Fish Oil) cholecalciferol (vitamin D3) 25 25 mcg PO BEDTIME 05/14/20 06/04/22 05/24/22 History mcg (1,000 unit) tablet (Vitamin D3) pen needle, diabetic 32 gauge x #100 ea 06/17/21 06/04/22 Unknown Rx (ReliOn [place]) PROSTHETIC SUPPLIES #1 ea 08/21/21 06/04/22 Unknown Rx vitamin B complex-vitamin C 100 1 tab PO DAILY 09/02/21 06/04/22 04/25/22 History mg-folic acid 1 mg tablet (Dialyvite) levothyroxine 150 mcg tablet 150 mcg PO QAM #90 tabs 11/04/21 06/04/22 05/24/22 Rx (Euthyrox) atorvastatin 40 mg tablet 40 mg PO DAILY@20 #90 tabs 12/17/21 06/04/22 05/24/22 Rx lactulose 10 gram/15 mL oral 10 g PO DAILY PRN Constipation 02/02/22 06/04/22 Unknown History solution (Constulose) tizanidine 4 mg capsule 4 mg PO Q6H PRN muscle spasticity 02/16/22 06/04/22 Unknown Rx #60 caps albuterol sulfate 90 mcg/actuation 2 puff inhalation Q4H PRN 04/25/22 06/04/22 Unknown History aerosol inhaler Shortness Of Breath cinacalcet 60 mg tablet 60 mg PO QAM 04/25/22 06/04/22 05/24/22 History furosemide 40 mg tablet (Lasix) 40 mg PO BID 04/25/22 06/04/22 05/24/22 History ipratropium 20 mcg-albuterol 100 1 puff inhalation DAILY PRN 04/25/22 06/04/22 Unknown History mcg/actuation mist for inhalation Shortness Of Breath (Combivent Respimat) nitroglycerin 0.4 mg sublingual 0.4 mg sublingual Q5M PRN Chest 04/25/22 06/04/22 Unknown History tablet (Nitrostat) Pain spironolactone 25 mg tablet 25 mg PO DAILY 04/25/22 06/04/22 04/25/22 History clonazepam 0.25 mg disintegrating 0.25 mg PO BID PRN Anxiety #30 tabs 05/07/22 06/04/22 Unknown Rx tablet amlodipine 10 mg tablet 10 mg PO QAM 05/25/22 06/04/22 05/24/22 History difluprednate 0.05 % eye drops 1 drp ophthalmic (eye) BID 05/25/22 06/04/22 Unknown History (Durezol) famotidine 20 mg tablet (Pepcid AC) 20 mg PO QAM 05/25/22 06/04/22 Unknown History hydralazine 50 mg tablet 50 mg PO BID 05/25/22 06/04/22 05/24/22 History insulin glargine 100 unit/mL (3 5 unit SUBCUT BID PRN blood sugar 05/25/22 06/04/22 1 Month Ago History mL) subcutaneous pen (Lantus ~04/25/22 Solostar U-100 Insulin) vit B,C-folic ac 800 mcg-zinc 12.5 1 tab PO QPM 05/25/22 06/04/22 05/24/22 History mg-selen-D3 2,000 unit-vit E tablet (RenaPlex-D) hydrocodone 5 mg-acetaminophen 325 1 tab PO Q8H PRN pain 30 days #90 06/04/22 06/04/22 Unknown Rx mg tablet tabs Allergies Allergy/AdvReac Type Severity Reaction Status Date / Time metformin [From Glucophage] Allergy Severe Unknown Verified 06/04/22 11:34 venlafaxine [From Effexor] Allergy Severe ADR-Shakine Verified 06/04/22 11:34 ss PFSH Acute PFSH: Medical History (Updated 06/09/22 @ 00:00 by Ewa Mccarty MD) Acute dyspnea Acute hyperkalemia Acute hyperkalemia Adjustment disorder with mixed disturbance of emotions and conduct Anemia in chronic kidney disease Anxiety Anxiety and depression BPPV (benign paroxysmal positional vertigo) CAD (coronary artery disease) Carotid stenosis 04/2020: Right < 50%, Left near 70% CHF exacerbation Chronic diastolic CHF (congestive heart failure) 12/2020 EF 55%, grade II/IV diastolic dysfunction Chronic kidney disease Chronic left sacroiliac joint pain CKD (chronic kidney disease) stage 5, GFR less than 15 ml/min Claustrophobia Compressive atelectasis Congestive heart failure Congestive heart failure Diabetes mellitus Diabetes mellitus, with long-term current use of insulin Diverticulitis Elevated troponin End stage renal disease End-stage renal disease (ESRD) ESBL (extended spectrum beta-lactamase) producing bacteria infection ESRD (end stage renal disease) on dialysis DAILY (generalized anxiety disorder) Gastroparesis GERD (gastroesophageal reflux disease) Gram-negative bacteremia Hemodialysis catheter dysfunction HTN (hypertension) Hyperlipidemia Hypocalcemia due to chronic kidney disease Hypothyroidism Hypoxemia Light headedness Lumbar back pain Major depression, recurrent Mixed dyslipidemia Noncompliance DOROTEO on CPAP PAD (peripheral artery disease) Partial nontraumatic amputation of left foot (~06/2019) Peripheral vascular disease Peritonitis associated with peritoneal dialysis Phantom pain Pneumonia due to COVID-19 virus (~12/2020) Positive cardiac stress test Sleep apnea Suicidal ideation TIA (transient ischemic attack) Vitamin D deficiency Surgical History AV (arteriovenous fistula) (~10/2020) H/O hysterectomy with oophorectomy History of appendectomy History of cataract surgery History of heart artery stent PCI to LAD, done in [place], [place] 10/2018 ENRIQUE to mid LAD at [facility] 04/2020 History of hysterectomy History of left heart catheterization 04/2020 Findings: 1. There is severe coronary artery disease. 2. FFR of mid LAD was 0.76. 3. Severe OM 2 stenosis. However this is a small sized distal vessel. 4. Mid Left Anterior Descending Coronary Artery was treated with Balloon and Drug Eluting Stent History of right below knee amputation Peritoneal dialysis catheter in place Removed due to recurrent peritonitis S/P cholecystectomy S/P hemodialysis catheter insertion S/P PICC central line placement (~2019) Status post amputation of toe Family History Denies family history of CAD (coronary artery disease) Clotting disorder Dementia Bleeding disorder Social History Smoking and tobacco status: never smoked Alcohol intake: never Household members: spouse and family History of recent travel: No Female Reproductive History: Spontaneous abortions: No Vitals/I&O/Wt Last Vital Signs Temp 98.4 F 06/08/22 16:50 Pulse 71 06/08/22 18:06 Resp 16 06/08/22 18:06 Pulse Ox 94 06/08/22 18:06 O2 Del Method 06/08/22 18:06 O2 Flow Rate 2 06/08/22 18:06 Weight last 48 hrs Weight 81.193 kg Physical Exam Narrative: General: No acute distress, AO x3, on 2 L nasal cannula, morbidly obese laying in bed appearing depressed. HEENT: EOMI Chest: Mild rhonchi at bases bilaterally, no wheezes no rhonchi CVS: S1-S2 regular, no murmurs, no tachycardia Abdomen: Soft, nontender, bowel sounds present Neuro: No focal deficits Right AKA Back: Unable to examine as patient is laying on her back. She is in pain at this time. Data 06/08/22 17:55 06/08/22 17:55 A&P Assessment and plan (1) Suicidal ideation: (2) Chronic kidney disease with end stage renal failure on dialysis: (3) Dyspnea on minimal exertion: (4) DOROTEO on CPAP: (5) Chronic diastolic CHF (congestive heart failure): (6) Noncompliance: (7) End-stage renal disease needing dialysis: Plan #Suicidal ideation #Thoracic compression fracture?. Back pain. #Anxiety and depression #End-stage renal disease, dialysis dependent #Acute on chronic diastolic congestive heart failure #Metabolic acidosis secondary to renal disease #Mild Hyperkalemia #Diabetes mellitus #Chronic back pain #Obstructive sleep apnea #Noncompliance #History of coronary disease, hypertension, hyperlipidemia #Hypothyroidism #Peripheral vascular disease #Right AKA -Nephro consulted. Patient to be dialyzed in a.m. ? Kayexalate 15 g x 1 ? Continue Lasix 40 twice daily ? Give additional Lasix 40 IV x1 dose now ? Continue oxygen therapy as required. Currently requiring 2 L nasal cannula ? Patient to get transferred to [facility] in a.[facility]. ? DuoNeb every 4 hour scheduled ? Check urine drug screen ? Check urinalysis - Check BMP - Hold spironolactone - Renal dialysis diet ? Consider doing MRI thoracic spine inpatient, unsure if patient would benefit from kyphoplasty?. She last saw her orthopedic spine surgery on May 07. ? Morphine 2 mg every 6 hour as needed pain ? Dialysis in AM. Nephrology consulted. Full code DVT prophylaxis: Heparin SQ twice daily Attestations Medical Necessity Statement*: Patient will cross greater than 2 midnight stay for management of suicidal ideation. 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
--- NOTE | 2022-06-08 23:53 | PC.NURSE ---
Pt served with 96 HH Involuntary Rights by this nurse and security @ [id number].
[2022-06-09] VITALS (188 sets, daily range): BP systolic 127–170; BP diastolic 56–94; PULSE 63–84; RESP 13–32; TEMP 36.5–37.3; O2SAT 74–100; BMI 29.1
[2022-06-09 00:22] LABS: Amphetamines Screen Urine Negative (Negative); Barbiturates Screen Urine Negative (Negative); Benzodiazepines Screen Urine Negative (Negative); Cocaine Screen Urine Negative (Negative); Opiate Screen Urine Negative (Negative); PCP Screen Urine Negative (Negative); THC Screen Urine Positive (Negative)
[2022-06-09 00:32] LABS: Anion Gap 25.1 (5-19); Blood Urea Nitrogen 59 mg/dL (6-20); Calcium 9.5 mg/dL (8.5-10.5); Carbon Dioxide 15 mmol/L (22-29); Chloride 97 mmol/L (98-107); Glomerular Filtration Rate 5.4 mL/min (90-130); Glucose 93 mg/dL (65-115); Osmolality Calculated 290 mOsm/kg (285-295); Potassium 5.1 mmol/L (3.5-5.1); Sodium 132 mmol/L (136-145)
[2022-06-09 00:38] LABS: Add Urine Microscopic? YES; Bilirubin Urine Neg (Negative); Blood Urine 2+ (Negative); Glucose Urine UA 2+ (Normal); Ketones Urine 1+ (Negative); Leukocyte Esterase Urine 2+ (Negative); Nitrate Urine Negative (Negative); Protein Urine 3+ (Negative); Sulfosalicylic Acid Urine Negative (Negative); Urine Appearance Cloudy (CLEAR); Urine Color Yellow (Yellow); Urobilinogen Urine Norm (Negative); pH Urine 8 (5-7)
[2022-06-09 00:39] LABS: Add Urine Culture? Yes; Bacteria Urine 2+ /hpf; Mucus Urine 1+ /hpf; WBC Urine TOO NUMEROUS TO CNT /hpf (0-5)
[2022-06-09] MEDS: morphine 4 mg/mL SDV 1 mL 2 MG IVP (02:12)
[2022-06-09] MEDS: heparin 5,000 unit/mL INJ 1 mL 5000 UNIT SUBCUT ×3 (02:27→23:04)
[2022-06-09] MEDS: insulin regular-human 5 UNIT in SYRINGE 1 EACH 1 UNIT IVP (02:43)
[2022-06-09] MEDS: ondansetron 2 mg/ML SDV 2 mL 4 MG IVP ×2 (03:11→09:18)
[2022-06-09] MEDS: sodium bicarbonate 650 mg Tablet PO ×4 (04:04→20:18)
[2022-06-09] MEDS: sodium polystyrene sulfonate 15 gm/60 mL Btl PO (04:04)
[2022-06-09 04:19] LABS: ABG PCO2 38.7 mmHg (35-45); ABG PH Result 7.37 (7.35-7.45); Alveolar-Arterial Oxygen Gradi 3.2 mmHg (5-10); Arterial Blood Gas Hematocrit 30.7 % (37-47); Base Excess ABG -2.7 mmol/L (-2.0-2.0); Blood Gas Allen Test Pos; Blood Gas Sample Site Radial, right; Blood Gas Sample Type Arterial; Carboxyhemoglobin 1.5 %THgb (0.4-20.1); HCO3 ABG 22.3 mmol/L (22-26); HGB O2 Sat 93.3 % (95-100); Ionized Calcium Level - ABG 1.2 mmol/L (1.1-1.4); Methemoglobin 0.6 % (0.4-1.5); Oxygen Device NC; Oxygen Saturation ABG 95.3; PO2 ABG 75.1 mmHg (80.0-100.0)
[2022-06-09] MEDS: CLONazepam 0.5 mg Tablet 0.25 MG PO (04:26)
[2022-06-09 05:17] LABS: Basophils % 0.6 %; Eosinophils # 0.1 10^3/uL (0.0-0.8); Hematocrit 32.1 % (37.0-47.0); Hemoglobin 10.1 g/dL (11.5-15.3); Lymphocytes # 0.3 10^3/uL (0.8-4.8); Lymphocytes % 6.4 %; Mean Corpuscular HGB Conc 31.5 g/dL (30.0-36.0); Mean Corpuscular Volume 98.5 fl (81-99); Mean Platelet Volume 11.4 fL (7.4-10.4); Monocytes # 0.3 10^3/uL (0.2-0.9); Monocytes % 6.4 %; Neutrophils # 4.38 10^3/uL (1.8-7.7); Neutrophils % 85.4 %; Nucleated Red Blood Cells % 0 %; Platelet Count 188 10^3/cmm (130-400); Red Blood Count 3.26 10^6/uL (4.1-5.3); Red Cell Distribution Width 16.3 % (12.1-15.1); White Blood Count 5.1 10^3/uL (4.0-10.0)
[2022-06-09 05:37] LABS: Alanine Aminotransferase 16 U/L (0-33); Albumin Level 3.9 g/dL (3.5-5.2); Alkaline Phosphatase 79 U/L (35-105); Anion Gap 23.1 (5-19); Aspartate Amino Transferase 19 U/L (0-32); Blood Urea Nitrogen 60 mg/dL (6-20); Calcium 9.7 mg/dL (8.5-10.5); Carbon Dioxide 21 mmol/L (22-29); Chloride 97 mmol/L (98-107); Globulin 2.9 g/dL (1.3-4.6); Glucose 136 mg/dL (65-115); Osmolality Calculated 301 mOsm/kg (285-295); Phosphorus 7.2 mg/dL (2.5-4.5); Potassium 5.1 mmol/L (3.5-5.1); Sodium 136 mmol/L (136-145); Total Bilirubin 0.4 mg/dL (0.15-1.2); Total Protein 6.8 g/dL (6.6-8.7)
[2022-06-09] MEDS: levothyroxine 150 mcg Tablet PO (06:24)
[2022-06-09] MEDS: famotidine 20 mg Tablet PO (06:24)
--- NOTE | 2022-06-09 07:26 | PC.HD ---
Patient is in ICU for HD, after which time she is scheduled to be transferred to psych for suicidal ideation. Upon initiation of treatment, patient became tearful and stated that she did not believe she could continue with her dialysis. This RN informed the patient that due to her involuntary hold status, she would likely not be able to make that decision at this time. Patient agreeable to transfer to psych and continue the discussion regarding future dialysis plans at that time. Patient complaining of restless legs, which is an ongoing issue for her. Primary RN has been advised of this conversation, and is also checking for orders for anti anxiety medications.
[2022-06-09 07:39] LABS: Glucose Point of Care 120 mg/dL (70-110)
[2022-06-09] MEDS: albuterol 2.5 mg/3 mL Neb INHALATION (08:55)
[2022-06-09] MEDS: ipratropium 0.5 mg/2.5 mL Neb INHALATION (08:55)
[2022-06-09] MEDS: omega-3 fatty acids 1,000 mg Capsule 1000 MG PO ×2 (09:03→18:11)
[2022-06-09] MEDS: aspirin 81 mg Chew Tablet PO (09:03)
[2022-06-09] MEDS: FUROsemide 40 mg Tablet PO ×2 (09:03→18:11)
--- NOTE | 2022-06-09 09:22 | PC.PHAR ---
pt states she takes care of her own medications-pt states she is unsure if she is taking spironolactone 25mg daily filled 05/24/22 30d/a-kvdkndye-e 1tab po daily filled 02/25/22 90d/s-pt states she has been using her lantus solostar 6 units bid filled 02/02/22 90d/s for 5 units bid-notes are made in the pharmacy comments
[2022-06-09 09:43] LABS: Hepatitis B Core AB, Total Non-Reactive (Nonreactive); Hepatitis B Surface AB 5.6 (11.5-1000); Hepatitis B Surface Antigen Non-Reactive (Nonreactive); Hepatitis C Virus Antibody Non-Reactive (Nonreactive)
[2022-06-09] MEDS: HYDROcodone-acetaminophen 5-325 mg Tablet 1 TAB PO ×3 (10:37→20:19)
--- NOTE | 2022-06-09 11:37 | P.CONIM_ITS ---
Providers/Reason For Consult Consulting Physician/Specialty*: [facility] /NEPHROLOGY Reason for Consult*: ESRD Attending Physician: Calvin Zamorano Primary Care Provider: Jacob Sharp DO History of Present Illness History of Present Illness Rizwana Herzog is a 57 year old female Patient is a 57-year-old female with past medical history of end-stage renal disease on hemodialysis per TTS schedule, coronary artery disease, diabetes, hypertension, CHF was brought to the emergency department due to suicidal ideation. Patient mentioned to the ER that she wanted to kill herself because she has too many medical problems to deal with. Her last dialysis session was Wednesday. In the ER vital signs are stable, labs reviewed potassium of 5.2, creatinine was 7.5. Review of Systems Narrative: Negative other than those mentioned in the HPI above Medications/Allergies Home Medications Medication Instructions Recorded Confirmed Last Taken Type aspirin 81 mg chewable tablet 81 mg PO DAILY@08 06/25/19 06/04/22 05/24/22 History omega 0-vbl-jdm-fish oil 300 1 cap PO BID 01/17/20 06/04/22 04/25/22 History mg-1,000 mg capsule,delayed release (Fish Oil) cholecalciferol (vitamin D3) 25 25 mcg PO BEDTIME 05/14/20 06/04/22 05/24/22 History mcg (1,000 unit) tablet (Vitamin D3) pen needle, diabetic 32 gauge x #100 ea 06/17/21 06/04/22 Unknown Rx 5/32 (ReliOn [place]) PROSTHETIC SUPPLIES #1 ea 08/21/21 06/04/22 Unknown Rx vitamin B complex-vitamin C 100 1 tab PO DAILY 09/02/21 06/04/22 04/25/22 History mg-folic acid 1 mg tablet (Dialyvite) levothyroxine 150 mcg tablet 150 mcg PO QAM #90 tabs 11/04/21 06/04/22 05/24/22 Rx (Euthyrox) atorvastatin 40 mg tablet 40 mg PO DAILY@20 #90 tabs 12/17/21 06/04/22 05/24/22 Rx lactulose 10 gram/15 mL oral 10 g PO DAILY PRN Constipation 02/02/22 06/04/22 Unknown History solution (Constulose) tizanidine 4 mg capsule 4 mg PO Q6H PRN muscle spasticity 02/16/22 06/04/22 Unknown Rx #60 caps albuterol sulfate 90 mcg/actuation 2 puff inhalation Q4H PRN 04/25/22 06/04/22 Unknown History aerosol inhaler Shortness Of Breath cinacalcet 60 mg tablet 60 mg PO QAM 04/25/22 06/04/22 05/24/22 History furosemide 40 mg tablet (Lasix) 40 mg PO BID 04/25/22 06/04/22 05/24/22 History ipratropium 20 mcg-albuterol 100 1 puff inhalation DAILY PRN 04/25/22 06/04/22 Unknown History mcg/actuation mist for inhalation Shortness Of Breath (Combivent Respimat) nitroglycerin 0.4 mg sublingual 0.4 mg sublingual Q5M PRN Chest 04/25/22 06/04/22 Unknown History tablet (Nitrostat) Pain spironolactone 25 mg tablet 25 mg PO DAILY 04/25/22 06/04/22 04/25/22 History clonazepam 0.25 mg disintegrating 0.25 mg PO BID PRN Anxiety #30 tabs 05/07/22 06/04/22 Unknown Rx tablet amlodipine 10 mg tablet 10 mg PO QAM 05/25/22 06/04/22 05/24/22 History difluprednate 0.05 % eye drops 1 drp ophthalmic (eye) BID 05/25/22 06/04/22 Unknown History (Durezol) famotidine 20 mg tablet (Pepcid AC) 20 mg PO QAM 05/25/22 06/04/22 Unknown History hydralazine 50 mg tablet 50 mg PO BID 05/25/22 06/04/22 05/24/22 History insulin glargine 100 unit/mL (3 5 unit SUBCUT BID PRN blood sugar 05/25/22 06/04/22 1 Month Ago History mL) subcutaneous pen (Lantus ~04/25/22 Solostar U-100 Insulin) vit B,C-folic ac 800 mcg-zinc 12.5 1 tab PO QPM 05/25/22 06/04/22 05/24/22 History mg-selen-D3 2,000 unit-vit E tablet (RenaPlex-D) hydrocodone 5 mg-acetaminophen 325 1 tab PO Q8H PRN pain 30 days #90 06/04/22 06/04/22 Unknown Rx mg tablet tabs cephalexin 500 mg capsule 500 mg PO Q6H 06/09/22 06/09/22 Unknown History sertraline 50 mg tablet 50 mg PO DAILY 06/09/22 06/09/22 Unknown History Allergies Allergy/AdvReac Type Severity Reaction Status Date / Time metformin [From Glucophage] Allergy Severe Unknown Verified 06/09/22 09:21 venlafaxine [From Effexor] Allergy Severe ADR-Shakine Verified 06/09/22 09:21 ss Current Medications Generic Name Dose Route Start Last Admin Trade Name Freq PRN Reason Stop Dose Admin Hydrocodone Bitart/Acetaminophen 1 tab 06/09/22 00:46 06/09/22 10:37 Hydrocodone-Acetaminophen 5-325 Mg Tablet PO 1 tab Q8H PRN Administration pain Albuterol Sulfate 2.5 mg 06/09/22 08:00 06/09/22 08:55 Albuterol 2.5 Mg/3 Ml Neb INHALATION 2.5 mg Q6H.RESP JERSON Administration Aspirin 81 mg 06/09/22 08:00 06/09/22 09:03 Aspirin 81 Mg Chew Tablet PO 81 mg DAILY@08 JERSON Administration Clonazepam 0.25 mg 06/09/22 00:52 06/09/22 04:26 Clonazepam 0.5 Mg Tablet PO 0.25 mg BID PRN Administration Anxiety Famotidine 20 mg 06/09/22 06:00 06/09/22 06:24 Famotidine 20 Mg Tablet PO 20 mg QAM JERSON Administration Furosemide 40 mg 06/09/22 09:00 06/09/22 09:03 Furosemide 40 Mg Tablet PO 40 mg BID JERSON Administration Heparin Sodium (Porcine) 5,000 unit 06/08/22 23:45 06/09/22 02:27 Heparin 5,000 Unit/Ml Inj 1 Ml SUBCUT 5,000 unit Q12H JERSON Administration Ipratropium [place] 0.5 mg 06/09/22 08:00 06/09/22 08:55 Ipratropium 0.5 Mg/2.5 Ml Neb INHALATION 0.5 mg Q6H.RESP JERSON Administration Levothyroxine Sodium 150 mcg 06/09/22 06:00 06/09/22 06:24 Levothyroxine 150 Mcg Tablet PO 150 mcg QAM JERSON Administration Non-Formulary Medication 1 tab 06/09/22 09:00 06/09/22 09:02 B Complex-Vitamin C-Folic Acid [Dialyvite] PO Not Given DAILY JERSON Pbnjz-8-Pccu Ethyl Esters 1,000 mg 06/09/22 09:00 06/09/22 09:03 [place]-3 Fatty Acids 1,000 Mg Capsule PO 1,000 mg BID JERSON Administration Ondansetron HCl 4 mg 06/09/22 02:54 06/09/22 09:18 Ondansetron 2 Mg/Ml Sdv 2 Ml IVP 4 mg Q4H PRN Administration NAUSEA AND VOMITING Sodium Bicarbonate 650 mg 06/09/22 01:30 06/09/22 09:03 Sodium Bicarbonate 650 Mg Tablet PO 650 mg TID JERSON Administration PFSH Acute PFSH: Medical History (Updated 06/09/22 @ 00:00 by Ewa Mccarty MD) Acute dyspnea Acute hyperkalemia Acute hyperkalemia Adjustment disorder with mixed disturbance of emotions and conduct Anemia in chronic kidney disease Anxiety Anxiety and depression BPPV (benign paroxysmal positional vertigo) CAD (coronary artery disease) Carotid stenosis 04/2020: Right < 50%, Left near 70% CHF exacerbation Chronic diastolic CHF (congestive heart failure) 12/2020 EF 55%, grade II/IV diastolic dysfunction Chronic kidney disease Chronic left sacroiliac joint pain CKD (chronic kidney disease) stage 5, GFR less than 15 ml/min Claustrophobia Compressive atelectasis Congestive heart failure Congestive heart failure Diabetes mellitus Diabetes mellitus, with long-term current use of insulin Diverticulitis Elevated troponin End stage renal disease End-stage renal disease (ESRD) ESBL (extended spectrum beta-lactamase) producing bacteria infection ESRD (end stage renal disease) on dialysis DAILY (generalized anxiety disorder) Gastroparesis GERD (gastroesophageal reflux disease) Gram-negative bacteremia Hemodialysis catheter dysfunction HTN (hypertension) Hyperlipidemia Hypocalcemia due to chronic kidney disease Hypothyroidism Hypoxemia Light headedness Lumbar back pain Major depression, recurrent Mixed dyslipidemia Noncompliance DOROTEO on CPAP PAD (peripheral artery disease) Partial nontraumatic amputation of left foot (~06/2019) Peripheral vascular disease Peritonitis associated with peritoneal dialysis Phantom pain Pneumonia due to COVID-19 virus (~12/2020) Positive cardiac stress test Sleep apnea Suicidal ideation TIA (transient ischemic attack) Vitamin D deficiency Surgical History AV (arteriovenous fistula) (~10/2020) H/O hysterectomy with oophorectomy History of appendectomy History of cataract surgery History of heart artery stent PCI to LAD, done in [place], [place] 10/2018 ENRIQUE to mid LAD at [facility] 04/2020 History of hysterectomy History of left heart catheterization 04/2020 Findings: 1. There is severe coronary artery disease. 2. FFR of mid LAD was 0.76. 3. Severe OM 2 stenosis. However this is a small sized distal vessel. 4. Mid Left Anterior Descending Coronary Artery was treated with Balloon and Drug Eluting Stent History of right below knee amputation Peritoneal dialysis catheter in place Removed due to recurrent peritonitis S/P cholecystectomy S/P hemodialysis catheter insertion S/P PICC central line placement (~2019) Status post amputation of toe Family History Denies family history of CAD (coronary artery disease) Clotting disorder Dementia Bleeding disorder Social History Smoking and tobacco status: never smoked Alcohol intake: never Household members: spouse and family History of recent travel: No Female Reproductive History: Spontaneous abortions: No Vitals/I&O/Wt Last Vital Signs Temp 97.7 F 06/09/22 10:39 Pulse 71 06/09/22 11:05 Resp 16 06/09/22 10:39 BP 148/94 06/09/22 11:05 Pulse Ox 93 06/09/22 11:05 O2 Del Method 06/09/22 09:10 O2 Flow Rate 4 06/09/22 09:10 06/08/22 06/09/22 06/09/22 22:59 06:59 14:59 Intake Total 400 / 400 300 / 300 Output Total 100 / 100 3300 / 3300 Balance 300 / 300 -3000 / -3000 Weight last 48 hrs Weight 76.4 kg Weight 79.379 kg Weight 81.193 kg Physical Exam 2 Narrative: Patient is awake alert, no acute distress HEENT: PERRLA S1-S2 regular rate and rhythm per report Clear to auscultation per report No pedal edema Data 06/09/22 04:30 06/09/22 04:30 A&P Assessment and plan (1) End-stage renal disease needing dialysis: Plan End-stage renal disease: Plan for dialysis today, patient on TTS schedule as outpatient. Hyperkalemia: Mild, should improve with HD, low K diet advised Hypertension: Restart home medications Suicidal ideation: Plan per psych and primary team Patient evaluated using audiovisual cart. 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
--- NOTE | 2022-06-09 12:13 | P.NPUPN_ITS ---
Subjective NPU Subjective: Patient presented today reporting she is feeling a little better but still depressed. She talked about changing dialysis locations about 3 months ago or so previously going to [facility]. She cannot explain what exactly but reports that for some reason since then she has really struggled during her 3+ hours of dialysis. She reports that he just feels different and she has been having despair increasing in this time frame. She cannot identify any other real issue and reports that she would be open to consideration of increasing her medication. We discussed exploring whether or not stepping allow her to be able to go down to the neuropsychiatric unit when she medically cleared tomorrow. Mental Status Exam MSE Comments: This is an overweight versus obese white female in hospital attire with limited grooming and eye contact with nasal cannula appropriately fixed. No abnormal movements except for mild psychomotor retardation. Cooperative exam in mild to moderate distress. Speech was decreased rate and volume with no gasps today that seemed to reflect difficulty breathing. Mood described as depressed, affect congruent. Thought process organized. Thought content: Patient denied homicidal delusions or suicidal ideation, no delusions reported noted, she denied any auditory or visual hallucinations. Attention and concentration were intact and memory appeared reliable but none were formally tested. She alert and oriented x3. Insight and judgment are limited and impulse control impaired. Vitals/I&O/Wt Last Vital Signs Temp 97.7 F 06/09/22 10:39 Pulse 71 06/09/22 11:05 Resp 16 06/09/22 10:39 BP 148/94 06/09/22 11:05 Pulse Ox 93 06/09/22 11:05 O2 Del Method 06/09/22 09:10 O2 Flow Rate 4 06/09/22 09:10 Weight last 48 hrs Weight 76.4 kg Weight 79.379 kg Weight 81.193 kg Data NPU 06/09/22 04:30 06/09/22 04:30 Micro: Microbiology 06/08/22 20:55 Urine Culture - Final Urine,Clean Catch Microbiology 06/08/22 20:55 Urine,Clean Catch Urine Culture - Final A&P Assessment and plan (1) Suicidal ideation: (2) Chest pain: (3) Acute hyperkalemia: (4) Anxiety and depression: (5) HTN (hypertension): (6) Hyperlipidemia: Qualifiers: Hyperlipidemia type: unspecified Qualified Code(s): E78.5 - Hyperlipidemia, unspecified (7) Adjustment disorder with mixed disturbance of emotions and conduct: (8) Major depressive disorder: (9) Chronic kidney disease with end stage renal failure on dialysis: (10) Dyspnea on minimal exertion: (11) Thoracic compression fracture: Qualifiers: Encounter type: subsequent encounter Thoracic vertebra fracture level: T2 Fracture healing: with routine healing Qualified Code(s): S22.020D - Wedge compression fracture of second thoracic vertebra, subsequent encounter for fracture with routine healing (12) GERD without esophagitis: (13) Tinea corporis: (14) Tinea cruris: (15) Lumbar paraspinal muscle spasm: (16) Lumbar radiculopathy: (17) DOROTEO on CPAP: (18) Chronic diastolic CHF (congestive heart failure): (19) Missed dialysis: (20) Noncompliance: (21) End-stage renal disease needing dialysis: Plan This is a 57-year-old white female with a huge list of medical comorbidities who presents having missed recent dialysis appointment with reported desire to d iscontinue dialysis and allow herself to significant depression reported. 1. We will follow as patient admitted to medical floor. 2. Intake psychiatric care is indicated. 3. We will evaluate current medications and make recommendations as indicated. Recommend increase in Zoloft to 100 mg p.o. daily. It does not need any adjustment for renal failure/dialysis. 4. We will assess whether or not she would be stable enough to be on the psychiatric unit. Involuntary Hold Information 96 Hour Hold: 96 Hour Involuntary Admission: Yes 96 Hour Hold Ending Date: 05/06/20 96 Hour Hold Ending Time: 20:06 Attestations NPU Medical Necessity Statement*: N/A. Please see primary provider note for medical necessity. However inpatient psychiatric care is indicated for over 2 midnights. Coding Level of Care Code Acute Automotive Sales Executive for [facility] Diagnoses Suicidal ideation R45.851 Chest pain R07.9 Acute hyperkalemia E87.5 Anxiety and depression F41.9; F32.A HTN (hypertension) I10 Hyperlipidemia E78.5 Hyperlipidemia type: unspecified Adjustment disorder with mixed disturbance of emotions and conduct F43.25 Major depressive disorder F32.9 Chronic kidney disease with end stage renal failure on dialysis N18.6; Z99.2 Dyspnea on minimal exertion R06.09 Thoracic compression fracture S22.020D Encounter type: subsequent encounter Thoracic vertebra fracture level: T2 Fracture healing: with routine healing GERD without esophagitis K21.9 Tinea corporis B35.4 Tinea cruris B35.6 Lumbar paraspinal muscle spasm M62.830 Lumbar radiculopathy M54.16 DOROTEO on CPAP G47.33; Z99.89 Chronic diastolic CHF (congestive heart failure) I50.32 Missed dialysis Noncompliance Z91.19 End-stage renal disease needing dialysis N18.6; Z99.2
--- NOTE | 2022-06-09 12:29 | PC.CHAP ---
Pastoral Care Encounter/Spiritual Assessment Type of Contact [] Declined clothes wringer visit [] Patient/Family/Request visit [] Outpatient visit [] Follow-up visit [] Physician referral [] Code/Alert [x] Routine visit [] Staff referral [] Actively dying [] Patient sleeping [] Family support [] [] Out of room [] Palliative care [] [] Receiving care in room [] Pre-surgical visit [] Trauma [] Long length of stay [x] ICU visit [x] Other: diaysis... setter Relational/Emotional Strength [] Patient feels connected with others/family/visitors/staff [] Distress [] Loneliness/isolation [] Abandonment Spirituality of Patient [] Person of Talya [] Attends Adventist of their Talya [] Believes in Prayer [] Reads Bible or Shinto materials [] There are Spiritual issues to be addressed Surgical Orderly Interventions [x] Prayer [] Active listening [] Non-anxious presence [] Spiritual/emotional support [] Crisis/trauma care [] Spiritual counseling [] Bereavement support [] Provided bereavement packet [] Provided Bible/devotional materials [] Provided toy/stuffed animal, coloring book to patient or family member [] Provided Communion [] Anointing/[place] [] Salvation [x] Completed spiritual assessment [] Other: Impact on Illness or Injury [] Angry [] Fearful [] Anxious [] Often cries [] Exhaustion [] Unable to work [] Unable to attend shinto [] Unable to walk/stand [] Unable to read [] Unable to drive [] Unable to eat/drink [] Unable to sleep [] Unable to be with family [] Patient intubated [] Other: Summary Time spent with patient
--- NOTE | 2022-06-09 13:54 | PM.PN ---
Subjective Subjective: States she is doing all right currently all things considering. Has been dealing with back pain. States has not been checked to picker hydrocodone prescription. States that the hydrocodone she received here did not relieve the pain. Denies any urinary symptoms/discomfort. Awaits further assessment by psychiatry. Vitals/I&O/Wt Last Vital Signs Temp 97.7 F 06/09/22 10:39 Pulse 68 06/09/22 13:00 Resp 16 06/09/22 10:39 BP 157/69 06/09/22 13:35 Pulse Ox 98 06/09/22 13:35 O2 Del Method 06/09/22 09:10 O2 Flow Rate 4 06/09/22 09:10 06/08/22 06/09/22 06/09/22 22:59 06:59 14:59 Intake Total 400 / 400 300 / 300 Output Total 100 / 100 3300 / 3300 Balance 300 / 300 -3000 / -3000 Weight last 48 hrs Weight 76.4 kg Weight 79.379 kg Weight 81.193 kg Physical Exam Narrative: Undergoing hemodialysis. Const: COMMON NORMALS: patient oriented x3 and alert GENERAL APPEARANCE: cooperative ORIENTATION/CONSCIOUSNESS: Yes awake HENMT: COMMON NORMALS: oropharynx normal Neck/C-Spine: COMMON NORMALS: no JVD Resp: COMMON NORMALS: normal respiratory effort and clear to auscultation bilaterally AUSCULTATION: clear to auscultation bilaterally Cardio: COMMON NORMALS: no JVD, regular rhythm, S1 normal heart sound present, S2 normal heart sound present and No murmurs present (Cardio) RHYTHM: regular rhythm HEART SOUNDS: S1 normal heart sound present and S2 normal heart sound present GI: COMMON NORMALS: Normal to inspection, nondistended, normoactive bowel sounds present, Soft to palpation and non-tender PALPATION: Yes Soft to palpation Extremity: COMMON NORMALS: no joint enlargement and no pedal edema Neuro: COMMON NORMALS: patient oriented x3 and moves all extremities SENSORIUM/ORIENTATION: Yes alert Skin: COMMON NORMALS: no rashes or lesions noted GENERAL SKIN EXAM: no rashes or lesions noted Data 06/09/22 04:30 06/09/22 04:30 A&P Assessment and plan (1) Suicidal ideation: Pending psychiatric evaluation. Consideration of whether she may be able to continue additional care on neuropsychiatric unit given she is on continuous supplemental oxygen at home. Has been dealing with back pain. Optimize additionally pain control. (2) End-stage renal disease needing dialysis: (3) Chronic kidney disease with end stage renal failure on dialysis: (4) Dyspnea on minimal exertion: (5) DOROTEO on CPAP: (6) Chronic diastolic CHF (congestive heart failure): Receiving dialysis. (7) Noncompliance: Plan #Thoracic compression fracture?. Chronic back pain that has been bothersome. Has seen orthopedics and they are considering evaluation with MRI. Add lidocaine patch. Capsaicin cream. Increase frequency of hydrocodone. Consider follow-up with pain management. #Anxiety and depression, pending psychiatry eval #Metabolic acidosis secondary to renal disease #Mild Hyperkalemia: Improved #Diabetes mellitus #Chronic back pain #History of coronary disease, hypertension, hyperlipidemia #Hypothyroidism #Peripheral vascular disease #Right AKA Full code DVT prophylaxis: Heparin SQ twice daily Attestations Medical Necessity Statement*: Admission for assessment management of suicide ideation, worsening depression, further psychiatric evaluation and treatment, optimization of control of back pain. Coding Level of Care Code Acute Safety Equipment Testing Specialist for [facility] Diagnoses Suicidal ideation R45.851 End-stage renal disease needing dialysis N18.6; Z99.2 Chronic kidney disease with end stage renal failure on dialysis N18.6; Z99.2 Dyspnea on minimal exertion R06.09 DOROTEO on CPAP G47.33; Z99.89 Chronic diastolic CHF (congestive heart failure) I50.32 Noncompliance Z91.19
[2022-06-09] MEDS: ipratropium-albuterol 3 mL Neb INHALATION (20:07)
[2022-06-09] MEDS: cholecalciferol (vitamin D3) 1,000 unit Tablet 1000 UNIT PO (20:18)
[2022-06-09] MEDS: atorvastatin 40 mg Tablet PO (20:18)
[2022-06-09 20:31] LABS: Glucose Point of Care 116 mg/dL (70-110)
[2022-06-10] VITALS (13 sets, daily range): BP systolic 120–187; BP diastolic 56–73; PULSE 59–74; RESP 14–19; TEMP 36.6–37.2; O2SAT 90–98
[2022-06-10] MEDS: HYDROcodone-acetaminophen 5-325 mg Tablet 1 TAB PO ×3 (00:52→21:20)
[2022-06-10] MEDS: ipratropium-albuterol 3 mL Neb INHALATION ×4 (01:52→20:32)
[2022-06-10] MEDS: famotidine 20 mg Tablet PO (06:09)
[2022-06-10] MEDS: levothyroxine 150 mcg Tablet PO (06:09)
[2022-06-10] MEDS: aspirin 81 mg Chew Tablet PO (07:42)
[2022-06-10 07:46] LABS: Glucose Point of Care 94 mg/dL (70-110)
[2022-06-10 07:56] LABS: Bilirubin Urine Neg (Negative); Blood Urine 2+ (Negative); Glucose Urine UA 2+ (Normal); Ketones Urine Negative (Negative); Nitrate Urine Negative (Negative); Protein Urine 3+ (Negative); Specific Gravity, Urine 1.015 (1.005-1.030); Urine Appearance Hazy (CLEAR); Urine Color Yellow (Yellow); pH Urine 8 (5-7)
[2022-06-10 07:57] LABS: Add Urine Microscopic? YES; Leukocyte Esterase Urine 2+ (Negative); Sulfosalicylic Acid Urine Positive (Negative); Urobilinogen Urine Neg (Negative)
[2022-06-10 08:18] LABS: RBC Urine 0-4 /hpf (0-2); WBC Urine TOO NUMEROUS TO CNT /hpf (0-5)
[2022-06-10 08:19] LABS: Add Urine Culture? No; Bacteria Urine 2+ /hpf; Squamous Epithelial Cell Urine TOO NUMEROUS TO CNT /hpf (0-5)
[2022-06-10] MEDS: lidocaine 5% Patch 1 PATCH TOPICAL (09:15)
[2022-06-10] MEDS: sodium bicarbonate 650 mg Tablet PO ×3 (09:15→21:20)
[2022-06-10] MEDS: FUROsemide 40 mg Tablet PO ×2 (09:15→17:31)
[2022-06-10] MEDS: omega-3 fatty acids 1,000 mg Capsule 1000 MG PO ×2 (09:15→17:31)
--- NOTE | 2022-06-10 10:59 | PM.PN ---
Subjective Subjective: no new complaints Medications: Reviewed: Yes Vitals/I&O/Wt Last Vital Signs Temp 98.1 F 06/10/22 07:59 Pulse 64 06/10/22 07:59 Resp 16 06/10/22 07:59 BP 162/70 06/10/22 07:59 Pulse Ox 93 06/10/22 07:59 O2 Del Method 06/10/22 07:59 O2 Flow Rate 3.5 06/10/22 07:59 06/09/22 06/10/22 06/10/22 22:59 06:59 14:59 Intake Total 1040 / 1340 120 / 1460 240 / 240 Output Total 75 / 3375 250 / 250 Balance 965 / -2035 120 / -1915 -10 / -10 Weight last 48 hrs Weight 76.4 kg Weight 79.379 kg Weight 81.193 kg Physical Exam Narrative: Patient is awake alert, no acute distress HEENT: PERRLA S1-S2 regular rate and rhythm per report Clear to auscultation per report No pedal edema Data 06/09/22 04:30 06/09/22 04:30 A&P Assessment and plan (1) End-stage renal disease needing dialysis: Plan End-stage renal disease: Plan for dialysis today, patient on TTS schedule as outpatient. plan for HD tomorrow Hyperkalemia: Mild, improved with HD, low K diet advised Hypertension: Restart home medications Suicidal ideation: Plan per psych and primary team Patient evaluated using audiovisual cart. Time spent 35 minutes Attestations Medical Necessity Statement*: Admission for assessment management of suicide ideation, worsening depression, further psychiatric evaluation and treatment, optimization of control of back pain. 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
[2022-06-10 11:16] LABS: Glucose Point of Care 159 mg/dL (70-110)
[2022-06-10] MEDS: heparin 5,000 unit/mL INJ 1 mL 5000 UNIT SUBCUT (12:31)
--- NOTE | 2022-06-10 13:26 | W.PM.NPUPNS ---
Subjective NPU Subjective: Patient presented today reporting that she is feeling better. She reports that getting a decent night's sleep had a huge impact on how she is going. She reported a phenomenon when it is time for her to go to sleep that she starts to think about her multiple maladies and has an irrational fear of not waking up/dying. She reports that she needs to get back into therapy and work on that but she still reports that she has this way that she feels when she is doing dialysis at the new place that is different than in the past. She denies any issues with the increase in Zoloft. Mental Status Exam MSE Comments: This is an overweight versus obese white female in hospital attire with limited grooming and eye contact with nasal cannula appropriately fixed. No abnormal movements except for mild psychomotor retardation. Cooperative exam in mild distress. Speech was more normal rate and volume with no gasps today that seemed to reflect difficulty breathing. Mood described as a little better, affect congruent. Thought process organized. Thought content: Patient denied homicidal delusions or suicidal ideation, no delusions reported noted, she denied any auditory or visual hallucinations. Attention and concentration were intact and memory appeared reliable but none were formally tested. She alert and oriented x3. Insight and judgment are limited and impulse control improving. Vitals/I&O/Wt Last Vital Signs Temp 97.9 F 06/10/22 11:08 Pulse 63 06/10/22 11:08 Resp 16 06/10/22 11:08 BP 146/64 06/10/22 11:08 Pulse Ox 94 06/10/22 11:08 O2 Del Method 06/10/22 11:08 O2 Flow Rate 3.5 06/10/22 11:08 06/09/22 06/10/22 06/10/22 22:59 06:59 14:59 Intake Total 1040 / 1340 120 / 1460 240 / 240 Output Total 75 / 3375 250 / 250 Balance 965 / -2035 120 / -1915 -10 / -10 Weight last 48 hrs Weight 76.4 kg Weight 79.379 kg Weight 81.193 kg Data NPU 06/09/22 04:30 06/09/22 04:30 Micro: Microbiology 06/08/22 20:55 Urine Culture - Final Urine,Clean Catch Microbiology 06/08/22 20:55 Urine,Clean Catch Urine Culture - Final A&P Assessment and plan (1) Suicidal ideation: (2) Chest pain: (3) Acute hyperkalemia: (4) Anxiety and depression: (5) HTN (hypertension): (6) Hyperlipidemia: Qualifiers: Hyperlipidemia type: unspecified Qualified Code(s): E78.5 - Hyperlipidemia, unspecified (7) Adjustment disorder with mixed disturbance of emotions and conduct: (8) Major depressive disorder: (9) Chronic kidney disease with end stage renal failure on dialysis: (10) Dyspnea on minimal exertion: (11) Thoracic compression fracture: Qualifiers: Encounter type: subsequent encounter Thoracic vertebra fracture level: T2 Fracture healing: with routine healing Qualified Code(s): S22.020D - Wedge compression fracture of second thoracic vertebra, subsequent encounter for fracture with routine healing (12) GERD without esophagitis: (13) Tinea corporis: (14) Tinea cruris: (15) Lumbar paraspinal muscle spasm: (16) Lumbar radiculopathy: (17) DOROTEO on CPAP: (18) Chronic diastolic CHF (congestive heart failure): (19) Missed dialysis: (20) Noncompliance: (21) End-stage renal disease needing dialysis: Plan This is a 57-year-old white female with a huge list of medical comorbidities who presents having missed recent dialysis appointment with reported desire to discontinue dialysis and allow herself to significant depression reported. 1. Continue treatment on medical floor 2. Intake psychiatric care is indicated. 3. We will evaluate current medications and make recommendations as indicated. Increased Zoloft to 100 mg p.o. daily. It does not need any adjustment for renal failure/dialysis. 4. We will likely agree to discharge from the medical floor. Involuntary Hold Information 96 Hour Hold: 96 Hour Involuntary Admission: Yes 96 Hour Hold Ending Date: 05/06/20 96 Hour Hold Ending Time: 20:06 Attestations NPU Medical Necessity Statement*: N/A. Please see primary provider note for medical necessity. Coding Level of Care Code Acute Direct Service Provider for [facility] Diagnoses Suicidal ideation R45.851 Chest pain R07.9 Acute hyperkalemia E87.5 Anxiety and depression F41.9; F32.A HTN (hypertension) I10 Hyperlipidemia E78.5 Hyperlipidemia type: unspecified Adjustment disorder with mixed disturbance of emotions and conduct F43.25 Major depressive disorder F32.9 Chronic kidney disease with end stage renal failure on dialysis N18.6; Z99.2 Dyspnea on minimal exertion R06.09 Thoracic compression fracture S22.020D Encounter type: subsequent encounter Thoracic vertebra fracture level: T2 Fracture healing: with routine healing GERD without esophagitis K21.9 Tinea corporis B35.4 Tinea cruris B35.6 Lumbar paraspinal muscle spasm M62.830 Lumbar radiculopathy M54.16 DOROTEO on CPAP G47.33; Z99.89 Chronic diastolic CHF (congestive heart failure) I50.32 Missed dialysis Noncompliance Z91.19 End-stage renal disease needing dialysis N18.6; Z99.2
--- NOTE | 2022-06-10 14:23 | PM.PN ---
Subjective Subjective: Today she is doing slightly better with back pain better controlled. Denies any pain or discomfort currently. Medications: Reviewed: Yes Vitals/I&O/Wt Last Vital Signs Temp 97.9 F 06/10/22 11:08 Pulse 70 06/10/22 13:33 Resp 18 06/10/22 13:33 BP 146/64 06/10/22 11:08 Pulse Ox 97 06/10/22 13:33 O2 Del Method 06/10/22 13:33 O2 Flow Rate 2 06/10/22 13:33 06/09/22 06/10/22 06/10/22 22:59 06:59 14:59 Intake Total 1040 / 1340 120 / 1460 240 / 240 Output Total 75 / 3375 250 / 250 Balance 965 / -2035 120 / -1915 -10 / -10 Weight last 48 hrs Weight 76.4 kg Weight 79.379 kg Weight 81.193 kg Physical Exam Const: COMMON NORMALS: patient oriented x3 and alert GENERAL APPEARANCE: cooperative ORIENTATION/CONSCIOUSNESS: Yes awake HENMT: COMMON NORMALS: oropharynx normal Neck/C-Spine: COMMON NORMALS: no JVD Resp: COMMON NORMALS: normal respiratory effort and clear to auscultation bilaterally AUSCULTATION: clear to auscultation bilaterally Cardio: COMMON NORMALS: no JVD, regular rhythm, S1 normal heart sound present, S2 normal heart sound present and No murmurs present (Cardio) RHYTHM: regular rhythm HEART SOUNDS: S1 normal heart sound present and S2 normal heart sound present GI: COMMON NORMALS: Normal to inspection, nondistended, normoactive bowel sounds present, Soft to palpation and non-tender PALPATION: Yes Soft to palpation Extremity: COMMON NORMALS: no joint enlargement and no pedal edema Neuro: COMMON NORMALS: patient oriented x3 and moves all extremities SENSORIUM/ORIENTATION: Yes alert Skin: COMMON NORMALS: no rashes or lesions noted GENERAL SKIN EXAM: no rashes or lesions noted Data 06/09/22 04:30 06/09/22 04:30 Micro: Microbiology 06/08/22 20:55 Urine Culture - Final Urine,Clean Catch A&P Assessment and plan (1) Suicidal ideation: Appreciate psychiatric evaluation regarding worsening of depression. Currently continue assessment management on medical floor with recommended medication changes. Has been dealing with back pain which is slightly better with optimization of her pain medications. (2) End-stage renal disease needing dialysis: (3) Chronic kidney disease with end stage renal failure on dialysis: (4) Dyspnea on minimal exertion: (5) DOROTEO on CPAP: (6) Chronic diastolic CHF (congestive heart failure): Receiving dialysis. (7) Noncompliance: Plan #Thoracic compression fracture?. Chronic back pain that has been bothersome. Has seen orthopedics and they are considering evaluation with MRI. Add lidocaine patch. Capsaicin cream. Increase frequency of hydrocodone. Consider follow-up with pain management. #Anxiety and depression, with worsening depression, additional management by psychiatry. #Metabolic acidosis secondary to renal disease #Mild Hyperkalemia: Improved #Diabetes mellitus #Chronic back pain #History of coronary disease, hypertension, hyperlipidemia #Hypothyroidism #Peripheral vascular disease #Right AKA Full code DVT prophylaxis: Heparin SQ twice daily Attestations Medical Necessity Statement*: Continue admission for assessment management of worsening in depression. Coding Level of Care Code Acute High Pressure Firer for [facility] Diagnoses Suicidal ideation R45.851 End-stage renal disease needing dialysis N18.6; Z99.2 Chronic kidney disease with end stage renal failure on dialysis N18.6; Z99.2 Dyspnea on minimal exertion R06.09 DOROTEO on CPAP G47.33; Z99.89 Chronic diastolic CHF (congestive heart failure) I50.32 Noncompliance Z91.19
[2022-06-10] MEDS: sertraline 50 mg Tablet PO (14:29)
[2022-06-10 17:23] LABS: Glucose Point of Care 137 mg/dL (70-110)
[2022-06-10 21:19] LABS: Glucose Point of Care 162 mg/dL (70-110)
[2022-06-10] MEDS: atorvastatin 40 mg Tablet PO (21:20)
[2022-06-10] MEDS: cholecalciferol (vitamin D3) 1,000 unit Tablet 1000 UNIT PO (21:20)
[2022-06-11] VITALS (10 sets, daily range): BP systolic 115–178; BP diastolic 62–79; PULSE 68–86; RESP 15–20; TEMP 36.6–37.2; O2SAT 88–95
[2022-06-11] MEDS: CLONazepam 0.5 mg Tablet 0.25 MG PO ×2 (00:12→10:22)
[2022-06-11] MEDS: heparin 5,000 unit/mL INJ 1 mL 5000 UNIT SUBCUT ×2 (00:13→14:17)
[2022-06-11] MEDS: ipratropium-albuterol 3 mL Neb INHALATION ×3 (03:22→20:49)
[2022-06-11] MEDS: HYDROcodone-acetaminophen 5-325 mg Tablet 1 TAB PO ×3 (05:21→17:55)
[2022-06-11] MEDS: levothyroxine 150 mcg Tablet PO (05:22)
[2022-06-11] MEDS: famotidine 20 mg Tablet PO (05:22)
[2022-06-11 06:03] LABS: Anion Gap 20.2 (5-19); Blood Urea Nitrogen 44 mg/dL (6-20); Calcium 9.4 mg/dL (8.5-10.5); Carbon Dioxide 26 mmol/L (22-29); Chloride 94 mmol/L (98-107); Glomerular Filtration Rate 6.6 mL/min (90-130); Glucose 121 mg/dL (65-115); Osmolality Calculated 294 mOsm/kg (285-295); Potassium 4.2 mmol/L (3.5-5.1); Sodium 136 mmol/L (136-145)
[2022-06-11 06:39] LABS: Glucose Point of Care 142 mg/dL (70-110)
[2022-06-11] MEDS: aspirin 81 mg Chew Tablet PO (08:25)
[2022-06-11] MEDS: lidocaine 5% Patch 1 PATCH TOPICAL (08:25)
[2022-06-11] MEDS: sodium bicarbonate 650 mg Tablet PO ×3 (08:26→21:20)
[2022-06-11] MEDS: sertraline 100 mg Tablet PO (08:26)
[2022-06-11] MEDS: omega-3 fatty acids 1,000 mg Capsule 1000 MG PO ×2 (08:26→16:57)
[2022-06-11] MEDS: FUROsemide 40 mg Tablet PO ×2 (08:27→16:57)
--- NOTE | 2022-06-11 12:09 | P.PN_ITS ---
Subjective Subjective: getting HD Medications: Reviewed: Yes Vitals/I&O/Wt Last Vital Signs Temp 98.4 F 06/11/22 07:34 Pulse 86 06/11/22 07:56 Resp 16 06/11/22 07:56 BP 169/70 06/11/22 07:34 Pulse Ox 95 06/11/22 07:56 O2 Del Method 06/11/22 07:56 O2 Flow Rate 1 06/11/22 07:56 06/10/22 06/11/22 06/11/22 22:59 06:59 14:59 Intake Total 550 / 790 240 / 1030 240 / 240 Balance 550 / 540 240 / 780 240 / 240 Weight last 48 hrs Weight 79.923 kg Data 06/09/22 04:30 06/11/22 04:47 Micro: Microbiology 06/08/22 20:55 Urine Culture - Final Urine,Clean Catch A&P Assessment and plan (1) End-stage renal disease needing dialysis: Plan End-stage renal disease: Plan for dialysis today, patient on TTS schedule as outpatient. Hyperkalemia: Mild, improved with HD, low K diet advised Hypertension: Restart home medications Suicidal ideation: Plan per psych and primary team Patient evaluated using audiovisual cart. Time spent 35 minutes Attestations Medical Necessity Statement*: Continue admission for assessment management of worsening in depression. Coding Level of Care Code Acute Group Billing Coordinator for Maris Braden Diagnoses End-stage renal disease needing dialysis N18.6; Z99.2
--- NOTE | 2022-06-11 16:34 | XRR_ITS ---
PROCEDURE INFORMATION: Exam: XR Chest Exam date and time: 06/11/2022 5:41 PM Age: 57 years old Clinical indication: Shortness of breath; Additional info: Some sensation of burning in chest, cough TECHNIQUE: Imaging protocol: Radiologic exam of the chest. Views: 1 view. COMPARISON: CR (CHEST, ) 06/08/2022 5:19 PM FINDINGS: Lungs: Similar appearance of right basilar consolidation. Pleural spaces: Small volume right pleural effusion. No pneumothorax. Heart/Mediastinum: Stable heart size. Bones/joints: Unremarkable. XR/XR chest 1V portable [id number] IMPRESSION: Similar appearance of right basilar consolidation with small volume right pleural effusion.
[2022-06-11 16:35] LABS: Glucose Point of Care 120 mg/dL (70-110)
--- NOTE | 2022-06-11 16:35 | P.PN_ITS ---
Subjective Subjective: Is having some burning in her chest today worse with inspiration. Some sore throat. Is having some cough. She is still bothered by back pain. States that she was told she was going to be set up with a back brace and wants to have one physical. Medications: Reviewed: Yes Vitals/I&O/Wt Last Vital Signs Temp 98.4 F 06/11/22 07:34 Pulse 86 06/11/22 07:56 Resp 16 06/11/22 07:56 BP 169/70 06/11/22 07:34 Pulse Ox 95 06/11/22 07:56 O2 Del Method 06/11/22 07:56 O2 Flow Rate 1 06/11/22 07:56 06/11/22 06/11/22 06/11/22 06:59 14:59 22:59 Intake Total 240 / 1030 240 / 240 Balance 240 / 780 240 / 240 Weight last 48 hrs Weight 79.923 kg Physical Exam Narrative: Undergoing hemodialysis. Const: COMMON NORMALS: patient oriented x3 and alert GENERAL APPEARANCE: cooperative ORIENTATION/CONSCIOUSNESS: Yes awake HENMT: COMMON NORMALS: oropharynx normal OTHER: Some enlargement of tonsils bilaterally, no erythema, no exudates. Neck/C-Spine: COMMON NORMALS: no JVD Resp: COMMON NORMALS: normal respiratory effort and clear to auscultation bilaterally AUSCULTATION: clear to auscultation bilaterally Cardio: COMMON NORMALS: no JVD, regular rhythm, S1 normal heart sound present, S2 normal heart sound present and No murmurs present (Cardio) RHYTHM: regular rhythm HEART SOUNDS: S1 normal heart sound present and S2 normal heart sound present GI: COMMON NORMALS: Normal to inspection, nondistended, normoactive bowel sounds present, Soft to palpation and non-tender PALPATION: Yes Soft to palpation Extremity: COMMON NORMALS: no joint enlargement and no pedal edema Neuro: COMMON NORMALS: patient oriented x3 and moves all extremities SENSORIUM/ORIENTATION: Yes alert Skin: COMMON NORMALS: no rashes or lesions noted GENERAL SKIN EXAM: no rashes or lesions noted Data 06/09/22 04:30 06/11/22 04:47 Micro: Microbiology 06/08/22 20:55 Urine Culture - Final Urine,Clean Catch A&P Assessment and plan (1) Suicidal ideation: Continue psychiatric evaluation and management regarding worsening of depression. Currently continue assessment management on medical floor with recommended medication changes. Has been dealing with back pain which is slightly better with optimization of her pain medications. (2) Chest discomfort: Some burning in her chest with deep breaths today. Some sore throat, cough. Will obtain chest x-ray. COVID PCR panel. Obtain an EKG. (3) End-stage renal disease needing dialysis: (4) Chronic kidney disease with end stage renal failure on dialysis: (5) Dyspnea on minimal exertion: (6) DOROTEO on CPAP: (7) Chronic diastolic CHF (congestive heart failure): Receiving dialysis. (8) Noncompliance: (9) Left foot burn: Left foot multiple areas of buck from acute event at home, with shallow ulcerations, without signs of surrounding infection, without erythema, without drainage, dry ulcerations over plantar distal medial aspect, with surrounding callus formation, linear burn area appears to be healing on medial posterior plantar aspect closer to the ER. Area of deep tissue injury of lateral, inferior and proximal MTP area of the fourth digit with small area of purplish discoloration. Apply zinc oxide, gauze dressing. Follow-up with podiatry. Plan #Thoracic compression fracture?. Chronic back pain that has been bothersome. Requests TLSO brace will request. Has seen orthopedics and they are considering evaluation with MRI. Continue lidocaine patch. Capsaicin cream. Hydrocodone. Consider follow-up with pain management. #Anxiety and depression, with worsening depression, additional management by psychiatry. #Metabolic acidosis secondary to renal disease #Mild Hyperkalemia: Improved #Diabetes mellitus #Chronic back pain #History of coronary disease, hypertension, hyperlipidemia #Hypothyroidism #Peripheral vascular disease #Right AKA Full code DVT prophylaxis: Heparin SQ twice daily Attestations Medical Necessity Statement*: Continue admission for cyst management of worsened depression psychiatric follow-up, medication adjustment. Coding Level of Care Code Acute Social Staff Worker for [facility] Fwd Diagnoses Suicidal ideation R45.851 Chest discomfort R07.89 End-stage renal disease needing dialysis N18.6; Z99.2 Chronic kidney disease with end stage renal failure on dialysis N18.6; Z99.2 Dyspnea on minimal exertion R06.09 DOROTEO on CPAP G47.33; Z99.89 Chronic diastolic CHF (congestive heart failure) I50.32 Noncompliance Z91.19 Left foot burn T25.022A
--- NOTE | 2022-06-11 16:37 | ECG_ITS ---
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 Measurements Intervals [place] Rate: 70 P: -48 MN: 193 QRS: -42 QRSD: 98 T: 97 QT: 407 QTc: 439 Interpretive Statements SINUS RHYTHM LEFT AXIS DEVIATION [QRS AXIS < -30] PATTERN CONSISTENT WITH PULMONARY DISEASE Compared to ECG 05/25/2022 12:45:27 T-wave abnormality now present Myocardial infarct finding no longer present Electronically Signed On 06-11-2022 19:01:24 OWNER PROFESSIONAL ENGINEER by Dong Pitt M.D. [id number]
--- NOTE | 2022-06-11 19:40 | P.NPUPN_ITS ---
Subjective NPU Subjective: Patient presented today with her by her side. She continues to show improvement over her initial presentation. She continues to show moments of positivity and hoda. She reports that the breathing treatments have made huge impacts on her breathing and O2 dependence. Which appears to answer the question that I queried initially to her which was whether this was related to her fluid overload from CHF or missing dialysis or something. We talked about following the recommendations of the treatment team for continued treatments post discharge. She is reportedly down to 1 L per nasal cannula. She feels good on the Zoloft 100 mg p.o. every morning. Mental Status Exam MSE Comments: This is an overweight versus obese white female in hospital attire with limited grooming and eye contact with nasal cannula appropriately fixed. No abnormal movements except for mild psychomotor retardation. Cooperative exam in no acute distress. Speech was more normal rate and volume. Mood described as better, affect congruent. Thought process organized. Thought content: Patient denied homicidal delusions or suicidal ideation, no delusions reported noted, she denied any auditory or visual hallucinations. Attention and concentration were intact and memory appeared reliable but none were formally tested. She alert and oriented x3. Insight and judgment and impulse control improving. Vitals/I&O/Wt Last Vital Signs Temp 98.0 F 06/11/22 16:00 Pulse 70 06/11/22 16:38 Resp 16 06/11/22 16:00 BP 154/63 06/11/22 16:00 Pulse Ox 91 06/11/22 16:00 O2 Del Method 06/11/22 16:00 O2 Flow Rate 1 06/11/22 07:56 06/11/22 06/11/22 06/11/22 06:59 14:59 22:59 Intake Total 240 / 1030 240 / 240 80 / 320 Balance 240 / 780 240 / 240 80 / 320 Weight last 48 hrs Weight 79.923 kg Data NPU 06/09/22 04:30 06/11/22 04:47 A&P Assessment and plan (1) Suicidal ideation: (2) Chest pain: (3) Acute hyperkalemia: (4) Anxiety and depression: (5) HTN (hypertension): (6) Hyperlipidemia: Qualifiers: Hyperlipidemia type: unspecified Qualified Code(s): E78.5 - Hyperlipidemia, unspecified (7) Adjustment disorder with mixed disturbance of emotions and conduct: (8) Major depressive disorder: (9) Chronic kidney disease with end stage renal failure on dialysis: (10) Dyspnea on minimal exertion: (11) Thoracic compression fracture: Qualifiers: Encounter type: subsequent encounter Thoracic vertebra fracture level: T2 Fracture healing: with routine healing Qualified Code(s): S22.020D - Wedge compression fracture of second thoracic vertebra, subsequent encounter for fracture with routine healing (12) GERD without esophagitis: (13) Tinea corporis: (14) Tinea cruris: (15) Lumbar paraspinal muscle spasm: (16) Lumbar radiculopathy: (17) DOROTEO on CPAP: (18) Chronic diastolic CHF (congestive heart failure): (19) Missed dialysis: (20) Noncompliance: (21) End-stage renal disease needing dialysis: Plan This is a 57-year-old white female with a huge list of medical comorbidities who presents having missed recent dialysis appointment with reported desire to discontinue dialysis and allow herself to with significant depression reported. 1. Continue treatment on medical floor 2. Intake psychiatric care is indicated. 3. Continue Zoloft 100 mg p.o. daily. It does not need any adjustment for renal failure/dialysis. 4. We will likely agree to discharge from the medical floor. Involuntary Hold Information 96 Hour Hold: 96 Hour Involuntary Admission: Yes 96 Hour Hold Ending Date: 05/06/20 96 Hour Hold Ending Time: 20:06 Attestations U Medical Necessity Statement*: N/A. Please see primary provider note for medical necessity. 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 for [facility] Fwd Diagnoses Suicidal ideation R45.851 Chest pain R07.9 Acute hyperkalemia E87.5 Anxiety and depression F41.9; F32.A HTN (hypertension) I10 Hyperlipidemia E78.5 Hyperlipidemia type: unspecified Adjustment disorder with mixed disturbance of emotions and conduct F43.25 Major depressive disorder F32.9 Chronic kidney disease with end stage renal failure on dialysis N18.6; Z99.2 Dyspnea on minimal exertion R06.09 Thoracic compression fracture S22.020D Encounter type: subsequent encounter Thoracic vertebra fracture level: T2 Fracture healing: with routine healing GERD without esophagitis K21.9 Tinea corporis B35.4 Tinea cruris B35.6 Lumbar paraspinal muscle spasm M62.830 Lumbar radiculopathy M54.16 DOROTEO on CPAP G47.33; Z99.89 Chronic diastolic CHF (congestive heart failure) I50.32 Missed dialysis Noncompliance Z91.19 End-stage renal disease needing dialysis N18.6; Z99.2
[2022-06-11 19:44] LABS: Adenovirus Not Detected (NOT DETECT); Chlamydia Pneumoniae Not Detected (NOT DETECT); Coronavirus 229E,HKU1,NL63,OC4 Not Detected (NOT DETECT); Human Metapneumovirus Not Detected (NOT DETECT); Human Rhinovirus/Enterovirus Not Detected (NOT DETECT); Influenza A Not Detected (NOT DETECT); Influenza A H1 Not Detected (NOT DETECT); Influenza A H1-2009 Not Detected (NOT DETECT); Influenza A H3 Not Detected (NOT DETECT); Influenza B Not Detected (NOT DETECT); Mycoplasma Pneumoniae Not Detected (NOT DETECT); Parainfluenza Virus Type 1 Not Detected (NOT DETECT); Parainfluenza Virus Type 2 Not Detected (NOT DETECT); Parainfluenza Virus Type 3 Not Detected (NOT DETECT); Parainfluenza Virus Type 4 Not Detected (NOT DETECT); Respiratory Syncytial Virus A Not Detected (NOT DETECT); Respiratory Syncytial Virus B Not Detected (NOT DETECT); SARS-COV-2 Not Detected (NOT DETECT)
--- NOTE | 2022-06-11 20:19 | PC.HD ---
Pt developed increased anxiety (medicated), nausea, increased pain (burning chest pain which increases with inspiration, medicated, Dr. Mary greenwood while in seeing patient, highest 12/14, at tx end 09/14), restless leg, hypotension (SBP 95), and cramping during treatment, requested to be taken off 25 minutes early. Fluid removal goal not met d/t hypotension and cramping. Dr Lucero greenwood.
[2022-06-11 21:09] LABS: Glucose Point of Care 156 mg/dL (70-110)
[2022-06-11] MEDS: cholecalciferol (vitamin D3) 1,000 unit Tablet 1000 UNIT PO (21:20)
[2022-06-11] MEDS: atorvastatin 40 mg Tablet PO (21:20)
[2022-06-11] MEDS: zolpidem 5 mg Tablet 2.5 MG PO (22:16)
[2022-06-11] MEDS: lanolin oint 7 gm 1 APPLIC TOPICAL (22:22)
[2022-06-12] VITALS (13 sets, daily range): BP systolic 147–178; BP diastolic 62–78; PULSE 67–86; RESP 16–20; TEMP 36.5–36.9; O2SAT 88–97
[2022-06-12] MEDS: HYDROcodone-acetaminophen 5-325 mg Tablet 1 TAB PO ×3 (02:54→20:39)
[2022-06-12] MEDS: heparin 5,000 unit/mL INJ 1 mL 5000 UNIT SUBCUT ×3 (02:54→23:23)
[2022-06-12] MEDS: ipratropium-albuterol 3 mL Neb INHALATION ×4 (02:55→19:47)
[2022-06-12] MEDS: ondansetron 2 mg/ML SDV 2 mL 4 MG IVP (03:01)
[2022-06-12 06:18] LABS: Glucose Point of Care 103 mg/dL (70-110)
--- NOTE | 2022-06-12 08:07 | P.PN_ITS ---
Subjective Subjective: no new complaints Medications: Reviewed: Yes Vitals/I&O/Wt Last Vital Signs Temp 98.2 F 06/12/22 04:00 Pulse 73 06/12/22 04:00 Resp 18 06/12/22 04:00 BP 147/68 06/12/22 04:00 Pulse Ox 90 06/12/22 04:00 O2 Del Method 06/12/22 02:00 O2 Flow Rate 2 06/12/22 02:00 06/11/22 06/12/22 06/12/22 22:59 06:59 14:59 Intake Total 80 / 820 590 / 1410 Output Total 0 / 2809 Balance 80 / -1989 590 / -1399 Weight last 48 hrs Weight 80.195 kg Weight 78.9 kg Weight 79.923 kg Physical Exam Narrative: Patient is awake alert, no acute distress HEENT: PERRLA S1-S2 regular rate and rhythm per report Clear to auscultation per report No pedal edema Data 06/09/22 04:30 06/11/22 04:47 A&P Assessment and plan (1) Chronic kidney disease with end stage renal failure on dialysis: (2) End-stage renal disease needing dialysis: Plan End-stage renal disease: Plan for dialysis tomorrow, patient on TTS schedule as outpatient. Hyperkalemia: Mild, improved with HD, low K diet advised Hypertension: Restart home medications Suicidal ideation: Plan per psych and primary team Patient evaluated using audiovisual cart. Time spent 35 minutes Attestations Medical Necessity Statement*: Continue admission for cyst management of worsened depression psychiatric follow-up, medication adjustment. Coding Level of Care Code Acute Medical Affairs Specialist for [facility] Diagnoses Chronic kidney disease with end stage renal failure on dialysis N18.6; Z99.2 End-stage renal disease needing dialysis N18.6; Z99.2
[2022-06-12] MEDS: FUROsemide 40 mg Tablet PO ×2 (08:31→18:19)
[2022-06-12] MEDS: sertraline 100 mg Tablet PO (08:31)
[2022-06-12] MEDS: omega-3 fatty acids 1,000 mg Capsule 1000 MG PO ×2 (08:31→18:19)
[2022-06-12] MEDS: aspirin 81 mg Chew Tablet PO (08:31)
[2022-06-12] MEDS: sodium bicarbonate 650 mg Tablet PO ×3 (08:31→20:39)
[2022-06-12] MEDS: levothyroxine 150 mcg Tablet PO (08:32)
[2022-06-12] MEDS: lidocaine 5% Patch 1 PATCH TOPICAL (08:32)
[2022-06-12] MEDS: famotidine 20 mg Tablet PO (08:32)
[2022-06-12] MEDS: ferric gluconate 125 MG in sodium chloride 0.9% (100 ml) 100 ML 110 MG IV (08:33)
[2022-06-12] MEDS: capsaicin 0.025% cream 60 gm 1 APPLIC TOPICAL (08:33)
[2022-06-12 09:03] LABS: Glucose Point of Care 100 mg/dL (70-110)
[2022-06-12] MEDS: CLONazepam 0.5 mg Tablet 0.25 MG PO ×2 (09:53→20:39)
[2022-06-12 12:00] LABS: Glucose Point of Care 119 mg/dL (70-110)
[2022-06-12] MEDS: zinc oxide oint 30 gm 1 APPLIC TOPICAL (12:45)
--- NOTE | 2022-06-12 14:23 | PC.RESP ---
Patient reports wearing Bipap at home. Saturations have been noted in the 87-89 range during rest.
[2022-06-12 16:43] LABS: Glucose Point of Care 141 mg/dL (70-110)
--- NOTE | 2022-06-12 18:36 | W.PM.NPUPNS ---
Subjective NPU Subjective: Patient presented today reporting that she is feeling considerably better. She still has some anxiety but she reports that overwhelming dread and thoughts of lethality are definitely gone. She was appreciative of the care she received here and the support she has received. We discussed the fact that from a psychiatric standpoint she can move forward with appropriate follow-up outpatient and once the medical team clears her she will be fine for discharge. We discussed that that would likely be after her dialysis tomorrow. Mental Status Exam MSE Comments: This is an overweight versus obese white female in hospital attire with limited grooming and eye contact with nasal cannula appropriately fixed. No abnormal movements except for mild psychomotor retardation. Cooperative exam in no acute distress. Speech was more normal rate and volume. Mood described as a little anxious but pretty good, affect congruent. Thought process organized. Thought content: Patient denied homicidal delusions or suicidal ideation, no delusions reported noted, she denied any auditory or visual hallucinations. Attention and concentration were intact and memory appeared reliable but none were formally tested. She alert and oriented x3. Insight and judgment and impulse control improving. Vitals/I&O/Wt Last Vital Signs Temp 98.5 F 06/12/22 16:00 Pulse 70 06/12/22 16:00 Resp 18 06/12/22 16:00 BP 178/78 06/12/22 16:00 Pulse Ox 96 06/12/22 16:00 O2 Del Method 06/12/22 16:00 O2 Flow Rate 3 06/12/22 14:32 06/12/22 06/12/22 06/12/22 06:59 14:59 22:59 Intake Total 590 / 1410 480 / 480 480 / 960 Output Total 0 / 2809 Balance 590 / -1399 480 / 480 480 / 960 Weight last 48 hrs Weight 80.195 kg Weight 78.9 kg Weight 79.923 kg Data NPU 06/09/22 04:30 06/11/22 04:47 A&P Assessment and plan (1) Suicidal ideation: (2) Chest pain: (3) Acute hyperkalemia: (4) Anxiety and depression: (5) HTN (hypertension): (6) Hyperlipidemia: Qualifiers: Hyperlipidemia type: unspecified Qualified Code(s): E78.5 - Hyperlipidemia, unspecified (7) Adjustment disorder with mixed disturbance of emotions and conduct: (8) Major depressive disorder: (9) Chronic kidney disease with end stage renal failure on dialysis: (10) Dyspnea on minimal exertion: (11) Thoracic compression fracture: Qualifiers: Encounter type: subsequent encounter Thoracic vertebra fracture level: T2 Fracture healing: with routine healing Qualified Code(s): S22.020D - Wedge compression fracture of second thoracic vertebra, subsequent encounter for fracture with routine healing (12) GERD without esophagitis: (13) Tinea corporis: (14) Tinea cruris: (15) Lumbar paraspinal muscle spasm: (16) Lumbar radiculopathy: (17) DOROTEO on CPAP: (18) Chronic diastolic CHF (congestive heart failure): (19) Missed dialysis: (20) Noncompliance: (21) End-stage renal disease needing dialysis: Plan This is a 57-year-old white female with a huge list of medical comorbidities who presents having missed recent dialysis appointment with reported desire to discontinue dialysis and allow herself to with significant depression reported. 1. Continue treatment on medical floor 2. Follow-up with therapist is indicated. 3. Continue Zoloft 100 mg p.o. daily. It does not need any adjustment for renal failure/dialysis. 4. We will sign off and agree to discharge when medically cleared by hospitalist team. Involuntary Hold Information 96 Hour Hold: 96 Hour Involuntary Admission: Yes 96 Hour Hold Ending Date: 05/06/20 96 Hour Hold Ending Time: 20:06 Attestations NPU Medical Necessity Statement*: N/A. Please see primary provider note for medical necessity. Coding Level of Care Code Acute Litigation Legal Assistant for [facility] Fwd Diagnoses Suicidal ideation R45.851 Chest pain R07.9 Acute hyperkalemia E87.5 Anxiety and depression F41.9; F32.A HTN (hypertension) I10 Hyperlipidemia E78.5 Hyperlipidemia type: unspecified Adjustment disorder with mixed disturbance of emotions and conduct F43.25 Major depressive disorder F32.9 Chronic kidney disease with end stage renal failure on dialysis N18.6; Z99.2 Dyspnea on minimal exertion R06.09 Thoracic compression fracture S22.020D Encounter type: subsequent encounter Thoracic vertebra fracture level: T2 Fracture healing: with routine healing GERD without esophagitis K21.9 Tinea corporis B35.4 Tinea cruris B35.6 Lumbar paraspinal muscle spasm M62.830 Lumbar radiculopathy M54.16 DOROTEO on CPAP G47.33; Z99.89 Chronic diastolic CHF (congestive heart failure) I50.32 Missed dialysis Noncompliance Z91.19 End-stage renal disease needing dialysis N18.6; Z99.2
[2022-06-12] MEDS: atorvastatin 40 mg Tablet PO (20:39)
[2022-06-12] MEDS: cholecalciferol (vitamin D3) 1,000 unit Tablet 1000 UNIT PO (20:39)
[2022-06-12 20:42] LABS: Glucose Point of Care 117 mg/dL (70-110)
--- NOTE | 2022-06-12 20:42 | PM.PN ---
Subjective Subjective: Today she is doing better. She has been set up with TLSO brace which is helping her back pain symptoms. She is breathing better today. Medications: Reviewed: Yes Vitals/I&O/Wt Last Vital Signs Temp 98.1 F 06/12/22 19:58 Pulse 71 06/12/22 19:58 Resp 18 06/12/22 19:58 BP 148/72 06/12/22 20:10 Pulse Ox 96 06/12/22 19:58 O2 Del Method 06/12/22 19:58 O2 Flow Rate 3 06/12/22 19:58 06/12/22 06/12/22 06/12/22 06:59 14:59 22:59 Intake Total 590 / 1410 480 / 480 480 / 960 Output Total 0 / 2809 Balance 590 / -1399 480 / 480 480 / 960 Weight last 48 hrs Weight 80.195 kg Weight 78.9 kg Weight 79.923 kg Physical Exam Const: COMMON NORMALS: patient oriented x3 and alert GENERAL APPEARANCE: cooperative ORIENTATION/CONSCIOUSNESS: Yes awake HENMT: COMMON NORMALS: oropharynx normal Neck/C-Spine: COMMON NORMALS: no JVD Resp: COMMON NORMALS: normal respiratory effort and clear to auscultation bilaterally AUSCULTATION: clear to auscultation bilaterally Cardio: COMMON NORMALS: no JVD, regular rhythm, S1 normal heart sound present, S2 normal heart sound present and No murmurs present (Cardio) RHYTHM: regular rhythm HEART SOUNDS: S1 normal heart sound present and S2 normal heart sound present GI: COMMON NORMALS: Normal to inspection, nondistended, normoactive bowel sounds present, Soft to palpation and non-tender PALPATION: Yes Soft to palpation Extremity: COMMON NORMALS: no joint enlargement and no pedal edema Neuro: COMMON NORMALS: patient oriented x3 and moves all extremities SENSORIUM/ORIENTATION: Yes alert Skin: COMMON NORMALS: no rashes or lesions noted GENERAL SKIN EXAM: no rashes or lesions noted Data 06/09/22 04:30 06/11/22 04:47 A&P Assessment and plan (1) Suicidal ideation: Continue psychiatric evaluation and management regarding worsening of depression. Currently continue assessment management on medical floor with recommended medication changes. Has been dealing with back pain which is slightly better with optimization of her pain medications. (2) Back pain: Symptoms responding well to TLSO brace. With question of thoracic compression fracture?. Chronic back pain that has been bothersome. Has seen orthopedics and they are considering evaluation with MRI. Continue lidocaine patch. Capsaicin cream. Hydrocodone. Consider follow-up with pain management. (3) Chest discomfort: Some burning in her chest with deep breaths today. Some sore throat, cough. Will obtain chest x-ray. COVID PCR panel. Obtain an EKG. (4) End-stage renal disease needing dialysis: (5) Chronic kidney disease with end stage renal failure on dialysis: (6) Dyspnea on minimal exertion: (7) DOROTEO on CPAP: (8) Chronic diastolic CHF (congestive heart failure): Receiving dialysis. (9) Noncompliance: (10) Left foot burn: Left foot multiple areas of buck from acute event at home, with shallow ulcerations, without signs of surrounding infection, without erythema, without drainage, dry ulcerations over plantar distal medial aspect, with surrounding callus formation, linear burn area appears to be healing on medial posterior plantar aspect closer to the ER. Area of deep tissue injury of lateral, inferior and proximal MTP area of the fourth digit with small area of purplish discoloration. Apply zinc oxide, gauze dressing. Follow-up with podiatry. Plan #Anxiety and depression, with worsening depression, additional management by psychiatry. #Metabolic acidosis secondary to renal disease #Mild Hyperkalemia: Improved #Diabetes mellitus #Chronic back pain #History of coronary disease, hypertension, hyperlipidemia #Hypothyroidism #Peripheral vascular disease #Right AKA Full code DVT prophylaxis: Heparin SQ twice daily Attestations Medical Necessity Statement*: Continue admission for management of worsening depression and psychiatric follow-up after adjustment of medication. 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
[2022-06-12] MEDS: zolpidem 5 mg Tablet 2.5 MG PO (23:23)
[2022-06-13 01:45] VITALS: PULSE 68; RESP 18; O2SAT 96
[2022-06-13] MEDS: ipratropium-albuterol 3 mL Neb INHALATION ×2 (01:45→09:00)
[2022-06-13 04:00] VITALS: BP 173/71; PULSE 71; RESP 18; TEMP 37.1; O2SAT 93
[2022-06-13 05:18] LABS: Glucose Point of Care 96 mg/dL (70-110)
[2022-06-13] MEDS: famotidine 20 mg Tablet PO (05:20)
[2022-06-13] MEDS: levothyroxine 150 mcg Tablet PO (05:21)
[2022-06-13 05:35] LABS: Anion Gap 17.3 (5-19); Blood Urea Nitrogen 31 mg/dL (6-20); Calcium 9.2 mg/dL (8.5-10.5); Carbon Dioxide 27 mmol/L (22-29); Chloride 92 mmol/L (98-107); Glomerular Filtration Rate 7.2 mL/min (90-130); Glucose 95 mg/dL (65-115); Osmolality Calculated 280 mOsm/kg (285-295); Potassium 4.3 mmol/L (3.5-5.1); Sodium 132 mmol/L (136-145)
[2022-06-13 06:44] LABS: Glucose Point of Care 98 mg/dL (70-110)
[2022-06-13 07:49] VITALS: BP 183/74; PULSE 71; RESP 16; TEMP 36.8; O2SAT 92
--- NOTE | 2022-06-13 07:56 | PM.PN ---
Subjective Subjective: feels better, reports she is going home after dialysis today Vitals/I&O/Wt Last Vital Signs Temp 98.2 F 06/13/22 07:49 Pulse 71 06/13/22 07:49 Resp 16 06/13/22 07:49 BP 183/74 06/13/22 07:49 Pulse Ox 92 06/13/22 07:49 O2 Del Method 06/13/22 07:49 O2 Flow Rate 2.5 06/13/22 04:00 06/12/22 06/13/22 06/13/22 22:59 06:59 14:59 Intake Total 480 / 960 Output Total 0 / 0 Balance 480 / 960 Weight last 48 hrs Weight 80.195 kg Weight 78.9 kg Physical Exam Const: COMMON NORMALS: no acute distress and alert Extremity: NARRATIVE EXTREMITY EXAM: left UE AVF Neuro: SENSORIUM/ORIENTATION: Yes alert Data 06/09/22 04:30 06/13/22 05:00 Other Labs: Ca 9.2 06/09/22 phos 7.2 Other data: Seen via telemedicine with assistance of RN at bedside A&P Assessment and plan (1) ESRD (end stage renal disease): Plan 1. ESRD 2. Hypertension 3. Anemia 4. Hyperphosphatemia 5. Depression Recommend: HD today to continue // schedule. Resume amlodipine. Resume phosphate binder. Discontinue NaHCO3. repeat Hb. Renal diet. No blood draws, IVs, BPs left arm. Next HD Wednesday06/16/22 Attestations Medical Necessity Statement*: per primary service Time Spent in Patient Care: 16 - 35 minutes Coding Level of Care Code Acute Railroad Police Officer for [place] Fwd Diagnoses ESRD (end stage renal disease) N18.6
[2022-06-13 08:00] VITALS: PULSE 70; RESP 16; O2SAT 92
[2022-06-13] MEDS: omega-3 fatty acids 1,000 mg Capsule 1000 MG PO ×2 (09:03→17:06)
[2022-06-13] MEDS: aspirin 81 mg Chew Tablet PO (09:03)
[2022-06-13] MEDS: sodium bicarbonate 650 mg Tablet PO (09:03)
[2022-06-13] MEDS: FUROsemide 40 mg Tablet PO ×2 (09:03→17:05)
[2022-06-13] MEDS: sertraline 100 mg Tablet PO (09:03)
[2022-06-13] MEDS: CLONazepam 0.5 mg Tablet 0.25 MG PO (11:03)
[2022-06-13] MEDS: HYDROcodone-acetaminophen 5-325 mg Tablet 1 TAB PO (11:04)
[2022-06-13] MEDS: lidocaine 5% Patch 1 PATCH TOPICAL (11:05)
[2022-06-13] MEDS: ondansetron 2 mg/ML SDV 2 mL 4 MG IVP (11:09)
[2022-06-13 12:00] VITALS: BP 104/67; PULSE 70; RESP 18; TEMP 36.4; O2SAT 96
[2022-06-13 12:00] LABS: Glucose Point of Care 120 mg/dL (70-110)
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
--- NOTE | 2022-06-13 16:24 | PC.NURSE ---
1130 patient taken to dialysis per bed. patient in stable condition
[2022-06-13 16:43] LABS: Glucose Point of Care 117 mg/dL (70-110)
--- NOTE | 2022-06-13 16:56 | PC.NURSE ---
1650 patient returned from dialysis
[2022-06-13] MEDS: sevelamer 800 mg Tablet 1600 MG PO (17:05)
[2022-06-13] MEDS: zinc oxide oint 30 gm 1 APPLIC TOPICAL (17:06)
--- NOTE | 2022-06-13 19:49 | PC.NURSE ---
1730 discharge instructions given to patient who voiced understanding. Wound care completed to left foot patient voiced understanding of wound care. 1745 patient discharged to home with patient taken to private car per staff per wheel chair patient in stable condition.
[2022-06-13 19:52] VITALS: BP 104/67; PULSE 70; RESP 18; TEMP 36.4; O2SAT 96
== END 2022-06-13 17:45 | disposition home or self-care (01) | DRG 885 ==
LOC: ER 23:28 → ICU 23:47 → MEDSURG 06-10 05:50
PROVIDERS: Hospitalist; Student in an Organized Health Care Education/Training Program; Admitting Provider Internal Medicine; Emergency Provider Emergency Medicine; PCP Family Medicine; Visit Provider Internal Medicine
DX: F33.9 Major depressive disorder, recurrent, unspecified (principal); N18.6 End stage renal disease; I13.2 Hypertensive heart and chronic kidney disease with heart failure and with stage 5 chronic kidney disease, or end stage renal disease; I50.32 Chronic diastolic (congestive) heart failure; R45.851 Suicidal ideations; F43.25 Adjustment disorder with mixed disturbance of emotions and conduct; I25.10 Atherosclerotic heart disease of native coronary artery without angina pectoris; Z95.5 Presence of coronary angioplasty implant and graft; E11.22 Type 2 diabetes mellitus with diabetic chronic kidney disease; Z99.2 Dependence on renal dialysis; Z91.15 Patient's noncompliance with renal dialysis; E11.51 Type 2 diabetes mellitus with diabetic peripheral angiopathy without gangrene; G89.29 Other chronic pain; G47.33 Obstructive sleep apnea (adult) (pediatric); Z86.73 Personal history of transient ischemic attack (TIA), and cerebral infarction without residual deficits; Z79.891 Long term (current) use of opiate analgesic; Z79.4 Long term (current) use of insulin; Z79.82 Long term (current) use of aspirin; Z79.51 Long term (current) use of inhaled steroids; Z86.16 Personal history of COVID-19; T25.022A Burn of unspecified degree of left foot, initial encounter; M54.16 Radiculopathy, lumbar region; E87.5 Hyperkalemia; Z89.511 Acquired absence of right leg below knee; Z89.422 Acquired absence of other left toe(s); E03.9 Hypothyroidism, unspecified; E78.2 Mixed hyperlipidemia; K21.9 Gastro-esophageal reflux disease without esophagitis; F41.8 Other specified anxiety disorders; F40.240 Claustrophobia; Z99.81 Dependence on supplemental oxygen; X58.XXXA Exposure to other specified factors, initial encounter
CPT/HCPCS: 12345; 36415; 36416; 36600; 71045; 71046; 80048; 80051; 80053; 80306; 80307; 81001; 82330; 82805; 82962; 83735; 83880; 84100; 85025; 86704; 86706; 86803; 87086; 87340; 87635; 90935; 93005; 94640; 94664; 96372; 96374; 97760; 99285; J1644; J1815; J2270; J2405; J2916; J7613; J7644; L0456; Q3014